=== PATIENT | female | born 1945 | race Caucasian/White ===

== ENCOUNTER 2023-08-26 11:00 | Outpatient (OUT) | payer MEDICARE, SELFPAY ==
--- NOTE | 2023-08-26 13:06 | P.CN_ITS ---
Consult Note: HPI Data of Consult Patient: new to practice Consult date: 08/26/23 Requesting Physician: Trevon Harris MD Primary Care Provider: RONI YEE Consult Narrative Reason for consult: Low back, bilateral leg pain, neck pain Narrative: 77yof who presents for evaluation. Longstanding low back and bilateral lower extremity pain. Lumbar imaging shows multilevel facet and disc degeneration, as well as several levels of stenosis, particularly at L4-5 and L5-S1. Has had injections previously with significant benefit >3 months. Continues in provider directed home exercises and therapy exercises >6 weeks. Also has worsening neck pain, neuropathy into bilateral upper extremities. Has tried tylenol, NSAIDs, tramadol. Denies adverse med side effects. cc:: CC: Trevon Harris MD Review of Systems ROS Status of ROS 10 or more systems reviewed and unremark able except as noted in history and below Exam Narrative Exam Narrative: Psych-alert and oriented x 3. Attentive and appropriate, constitutionally normal, displays normal mood and affect per situation. There are no obvious deficits in memory, reasoning, or intellect.? Skin-no obvious rashes, bruising, erythema noted to the patient's area of pain.? Extremities- extremities are warm with minimal edema and palpable pulses. Lumbar-tenderness to palpation noted in the lumbar spine and paraspinal musculature. Pain is elicited with flexion, extension, and lateral rotation of the lumbar spine. Range of motion is diminished with these motions. Facet loading maneuvers are positive.? Strength-noted to be unremarkable with the exception of decreased strength rated at 4 out of 5 in bilateral quadriceps femoris, anterior tibialis. Sensory-no notable sensory deficits in the bilateral lower extremities to touch or pinprick in all dermatomal distributions with the exception to decreased sens ation to the bilateral L4, 5 dermatomal distribution Coordination remains intact.? Gait remains non-antalgic. Assessment and Plan Assessment and Plan (1) Lumbar stenosis with neurogenic claudication: (2) Lumbar spondylosis: (3) Sacroiliac joint dysfunction of both sides: (4) Cervicalgia: Plan 77yof who presents for evaluation. Failed conservative measures, as noted. Given worsening symptoms, would like her to repeat cervical and lumbar XR. She is in agreement. Discussed that she may need repeat interventions at some point in the future, from TFESI to SIJ injection to lumbar RFA. Medications reviewed, no changes. Follow up after imaging.
== END 2023-08-26 11:01 | disposition home or self-care (01) ==
LOC: PM 11:01
PROVIDERS: PCP Family Medicine; Visit Provider Anesthesiology
DX: M48.062 Spinal stenosis, lumbar region with neurogenic claudication (principal); M47.816 Spondylosis without myelopathy or radiculopathy, lumbar region; M53.3 Sacrococcygeal disorders, not elsewhere classified; M54.2 Cervicalgia
CPT/HCPCS: 72050; 72114; G0463

== ENCOUNTER 2023-08-26 12:47 | Outpatient (OUT) | payer MEDICARE, SELFPAY ==
--- NOTE | 2023-08-26 12:56 | XR_ITS ---
The [address] [address] Patient Name: BINA RIOS MRN: [id number] date: 1945 Sex: F Assigned Patient Location: [facility] Current Patient Location: [facility] Accession/Order Number: [id number] Exam Date: 08/26/2023 13:10 Report Date: 08/27/2023 07:45 At the request of: DARRIAN BRUNNER Procedure: XR cervical spine 5V EXAMINATION: XR cervical spine 5V HISTORY: cervicalgia COMPARISON: No relevant comparison available. FINDINGS: BONES: Reversal of cervical lordosis with no acute fracture or spondylolisthesis. Moderate to severe degenerative spondylosis. Moderate facet osteoarthropathy DISC SPACES: Moderate multilevel disc space narrowing C3-C7 PARASPINOUS: Negative. No paraspinous abnormality is seen. OTHER: Negative. XR/XR cervical spine 5V IMPRESSION: Moderate to severe degenerative changes with reversal of cervical lordosis Electronically authenticated by: CHRISTIAN VIRAMONTES Date: 08/27/2023 07:45
--- NOTE | 2023-08-26 13:02 | XR_ITS ---
The [place] [id number] Patient Name: BINA RIOS MRN: [id number] date: 1945 Sex: F Assigned Patient Location: [facility] Current Patient Location: Accession/Order Number: [id number] Exam Date: 08/26/2023 13:10 Report Date: 08/27/2023 07:43 At the request of: DARRIAN BRUNNER Procedure: XR lumbar spine 6V w bending EXAMINATION: XR lumbar spine 6V w bending HISTORY: lumbar stenosis COMPARISON: No relevant comparison available. FINDINGS: BONES: Rotatory levoscoliosis of the lumbar spine centered at L2. Moderate to severe diffuse degenerative spondylosis and facet osteoarthropathy DISC SPACES: Moderate to severe multilevel disc space narrowing with endplate sclerosis PARASPINOUS: Negative. No paraspinous abnormality is seen. OTHER: Vascular calcifications. No transient spondylolisthesis with flexion or extension XR/XR lumbar spine 6V w bending IMPRESSION: Moderate to severe diffuse degenerative changes with no dynamic instability Electronically authenticated by: CHRISTIAN VIRAMONTES Date: 08/27/2023 07:43
== END 2023-08-26 12:48 | disposition home or self-care (01) ==
LOC: RAD 12:51
PROVIDERS: PCP Family Medicine; Visit Provider Anesthesiology
DX: R53.83 Other fatigue (principal); I10 Essential (primary) hypertension
CPT/HCPCS: 72050; 72114

== ENCOUNTER 2023-09-09 09:43 | Day surgery (SDC) | payer MEDICARE, SELFPAY ==
[2023-09-09 10:22] VITALS: BP 129/72; PULSE 72; RESP 16; TEMP 36.2; O2SAT 99
[2023-09-09 10:53] VITALS: BP 128/62; PULSE 63; RESP 18; O2SAT 98
[2023-09-09 10:54] VITALS: BP 133/58; PULSE 60; RESP 18; O2SAT 96
[2023-09-09] MEDS: 0.9 % SODIUM CHLORIDE 10 ML INJ (10:56)
[2023-09-09] MEDS: LIDOCAINE HCL 2% PF 100 MG/5 ML VIAL 3 ML INJ (10:57)
[2023-09-09] MEDS: BUPIVACAINE HCL 0.25% PF 25 MG/10 ML VIAL INJ (10:57)
[2023-09-09] MEDS: TRIAMCINOLONE ACETONIDE 40 MG/ML VIAL 80 MG INJ (10:57)
[2023-09-09] MEDS: IOHEXOL 240 MG/ML - 10 ML VIAL 24 MG INJ (10:57)
--- NOTE | 2023-09-09 10:57 | W.PM.PROCNOT ---
Date of procedure: 09/09/23 Pre-op diagnosis: Lumbar stenosis with neurogenic claudication Post-op diagnosis: same as pre-op Procedure: Procedure: Bilateral L5-S1 transforaminal epidural steroid injection Medications: Bupivacaine 0.25% 2cc, lidocaine 2% 1cc, kenalog 80mg The patient was seen and examined in the preoperative holding area.? Informed consent was obtained and placed on the chart.? Patient was brought to the medical procedure unit and placed in the prone position where a timeout was completed verifying the correct patient, procedure site, position, and planned special equipment using sterile aseptic technique.? Under direct fluoroscopic visualization a 25-gauge Quincke tipped spinal needle was advanced at level left L5-S1 to the designated neural foramen where contrast dye was injected to show adequate spread.? There was no evidence of vascular or adverse uptake.? Epidural spread was appreciated.? The above-mentioned injectate was then placed in a 1.5 mL aliquot preceded by negative aspiration.? The needle was removed. The same procedure, at the same level, was completed on the opposite side. ? Patient was taken to the postprocedural recovery area and monitored for an appropriate length of time before found suitable for discharge in the accompaniment of a responsible adult. Anesthesia: Local Surgeon: Trevon Harris Pathology: none sent Condition: stable Disposition: no change
== END 2023-09-09 11:25 | disposition home or self-care (01) ==
LOC: SURGOUT 09:43
PROVIDERS: PCP Family Medicine; Visit Provider Anesthesiology
DX: M48.062 Spinal stenosis, lumbar region with neurogenic claudication (principal)
CPT/HCPCS: 64483; Q9966

== ENCOUNTER 2023-09-30 10:23 | Day surgery (SDC) | payer MEDICARE, SELFPAY ==
[2023-09-30 10:36] VITALS: BP 133/66; PULSE 68; TEMP 36.7; O2SAT 100
[2023-09-30] MEDS: BUPIVACAINE HCL 0.25% PF 25 MG/10 ML VIAL 4 ML INJ (11:07)
[2023-09-30] MEDS: IOHEXOL 240 MG/ML - 10 ML VIAL INJ (11:07)
[2023-09-30] MEDS: TRIAMCINOLONE ACETONIDE 40 MG/ML VIAL 80 MG INJ (11:07)
[2023-09-30] MEDS: LIDOCAINE HCL 2% PF 100 MG/5 ML VIAL 3 ML INJ (11:07)
--- NOTE | 2023-09-30 11:08 | W.PM.PROCNOT ---
Date of procedure: 09/30/23 Pre-op diagnosis: Sacroiliitis, bilateral Post-op diagnosis: same as pre-op Procedure: Procedure: Bilateral sacroiliac joint injection Medications: Bupivacaine 0.25% 3cc, kenalog 40mg x2 After informed consent was obtained, the patient was brought to the medical procedure unit and placed in the prone position, when a timeout was completed verifying correct patient, procedure, site, positioning, implant, and/or special equipment.? The skin overlying the area was prepped and draped in standard sterile fashion using alcohol.? A 25-gauge needle was inserted towards the left sacroiliac joint under direct fluoroscopic imaging.? Needle tip was advanced until the joint was encountered.? We instilled a total of 3 mL of solution. The same procedure, with the same steps, was then completed on the right side.? Postoperatively needles were removed.? The patient tolerated the procedure well without complication.? The patient reported reduction in pain symptoms postoperatively. Anesthesia: Local Surgeon: Trevon Harris Pathology: none sent Condition: stable Disposition: no change
[2023-09-30 11:10] VITALS: BP 146/67; BP 159/78; PULSE 58; PULSE 61; O2SAT 97
== END 2023-09-30 11:14 | disposition home or self-care (01) ==
LOC: SURGOUT 10:24
PROVIDERS: PCP Family Medicine; Visit Provider Anesthesiology
DX: M46.1 Sacroiliitis, not elsewhere classified (principal)
CPT/HCPCS: 27096; Q9966

== ENCOUNTER 2023-10-17 09:44 | Outpatient (OUT) | payer MEDICARE, SELFPAY ==
--- NOTE | 2023-10-17 10:23 | PM.CN ---
Consult Note: HPI Data of Consult Patient: known to practice within the last 3 years Consult date: 08/26/23 Requesting Physician: Gabrielle Boswell NP Primary Care Provider: RONI YEE Consult Narrative Reason for consult: Low back, bilateral leg pain, neck pain Narrative: 77yof who presents for evaluation. Longstanding low back and bilateral lower extremity pain. Lumbar imaging shows multilevel facet and disc degeneration, as well as several levels of stenosis, particularly at L4-5 and L5-S1. Has had injections previously with significant benefit >3 months. Continues in provider directed home exercises and therapy exercises >6 weeks. Has tried tylenol, NSAIDs, tramadol. Denies adverse med side effects. Recently underwent bilateral L5/S1 TFESI and bilateral SIJ injection with 70% improvement ongoing. Patient continues to report numbness tingling weakness of BLE. low back pain 1/10 ache increasing to 5/10 with activity. cc:: CC: Gabrielle Boswell NP Review of Systems ROS Status of ROS 10 or more systems reviewed and unremarkable except as noted in history and below Musculoskeletal Reports: back pain PFSH PFSH Medical History (Updated 08/26/23 @ 15:40 by Alma Sanford) Irregular heartbeat ?I49.9 - Cardiac arrhythmia, unspecified (ICD-10) Sleep apnea ?G47.30 - Sleep apnea, unspecified (ICD-10) Hiatal hernia ?K44.9 - Diaphragmatic hernia without obstruction or gangrene (ICD-10) Acid reflux ?K21.9 - Gastro-esophageal reflux disease without esophagitis (ICD-10) Osteoarthritis ?M19.90 - Unspecified osteoarthritis, unspecified site (ICD-10) TMJ (dislocation of temporomandibular joint) ?S03.00XA - Dislocation of jaw, unspecified side, initial encounter (ICD-10) Hypothyroid ?E03.9 - Hypothyroidism, unspecified (ICD-10) Surgical History History of bladder surgery ?Z98.890 - Other specified postprocedural states (ICD-10) History of knee replacement ?Z96.659 - Presence of unspecified artificial knee joint (ICD-10) History of hip replacement ?Z96.649 - Presence of unspecified artificial hip joint (ICD-10) History of cholecystectomy ?Z90.49 - Acquired absence of other specified parts of digestive tract (ICD-10) History of ankle surgery ?Z98.890 - Other specified postprocedural states (ICD-10) H/O: hysterectomy ?Z90.710 - Acquired absence of both cervix and uterus (ICD-10) H/O hernia repair ?Z98.890 - Other specified postprocedural states (ICD-10) ?Z87.19 - Personal history of other diseases of the digestive system (ICD-10) Meds Home Medications and Allergies Home Medications ?Medication ?Instructions ?Recorded ?Confirmed ?Type aspirin 81 mg capsule 81 mg PO DAILY 08/26/23 09/30/23 History calcium-magnesium 300 mg-300 mg 1 tab PO DAILY 08/26/23 09/30/23 History tablet cholecalciferol (vitamin D3) 50 50 mcg PO BID 08/26/23 09/30/23 History mcg (2,000 unit) capsule citalopram 20 mg tablet 20 mg PO DAILY 08/26/23 09/30/23 History cyanocobalamin (vitamin B-12) 1,000 mcg PO DAILY 08/26/23 09/30/23 History 1,000 mcg capsule docusate sodium 100 mg capsule 100 mg PO DAILY 08/26/23 09/30/23 History estradiol 0.01% (0.1 mg/gram) 1 g vaginal QWEEK 08/26/23 09/30/23 History vaginal cream famotidine 20 mg tablet 20 mg PO DAILY 08/26/23 09/30/23 History fexofenadine 180 mg tablet 180 mg PO DAILY 08/26/23 09/30/23 History fluticasone propionate 50 1 spray intranasal DAILY PRN 08/26/23 09/30/23 History mcg/actuation nasal allergy symptoms spray,suspension hydrocortisone 2.5 % topical 1 applic topical DAILY 08/26/23 09/30/23 History ointment levothyroxine 50 mcg capsule 50 mcg PO DAILY 08/26/23 09/30/23 History multivitamin with minerals tab PO 08/26/23 History pantoprazole 20 mg tablet,delayed 20 mg PO DAILY 08/26/23 09/30/23 History release pilocarpine HCl 5 mg tablet 5 mg PO TID 08/26/23 09/30/23 History pravastatin 40 mg tablet 40 mg PO DAILY 08/26/23 09/30/23 History psyllium husk 0.4 gram capsule 0.4 g PO DAILY 08/26/23 09/30/23 History (Metamucil) topiramate 50 mg tablet 50 mg PO DAILY 08/26/23 09/30/23 History Allergies Allergy/AdvReac Type Severity Reaction Status Date / Time latex Allergy Verified 09/30/23 10:41 Sulfa (Sulfonamide Allergy Verified 09/30/23 10:41 Antibiotics) Exam Narrative Exam Narrative: Psych-alert and oriented x 3. Attentive and appropriate, constitutionally normal, displays normal mood and affect per situation. There are no obvious deficits in memory, reasoning, or intellect.? Skin-no obvious rashes, bruising, erythema noted to the patient's area of pain.? Extremities- extremities are warm with minimal edema and palpable pulses. Lumbar-tenderness to palpation noted in the lumbar spine and paraspinal musculature. Pain is elicited with flexion, extension, and lateral rotation of the lumbar spine. Range of motion is diminished with these motions. Facet loading maneuvers are positive.? Strength-noted to be unremarkable with the exception of decreased strength rated at 4 out of 5 in bilateral quadriceps femoris, anterior tibialis. Sensory-no notable sensory deficits in the bilateral lower extremities to touch or pinprick in all dermatomal distributions Coordination remains intact.? Gait remains non-antalgic. Constitutional Documenting provider has reviewed patient's vital signs: yes Common normals: no apparent distress, oriented x3, healthy appearing, alert and well nourished General appearance: cooperative [facility] Common normals: normocephalic, hearing grossly normal bilaterally and moist oral mucous membranes Head and scalp: normocephalic Eye Common normals: PERRL Pupil: PERRL Neck & C-Spine Common normals: full ROM General: normal visual inspection Chest Common normals: inspection of chest normal Respiratory Common normals: normal respiratory effort, no retractions and no use of accessory muscles Neuro Common normals: oriented x3, CN's II-XII intact bilaterally, moves all extremities, no focal motor deficits, no sensory deficits noted and deep tendon reflexes 2+ bilaterally Sensorium/orientation: alert Motor exam: strength 5/5 throughout and no movement abnormalities noted Psych Common normals: mental status grossly normal, thought process normal, cooperative, affect normal, speech normal and activity/motor behavior normal Speech: normal speech Thought process: normal thought process Results Additional Findings Additional findings: If on a controlled substance or opioids, I have checked an [place] report on this patient and there are no aberrancies noted in the prescribing history.??If on a controlled substance or opioid a drug screen was completed and reviewed within the last year, and if there has not been a drug screen completed we ordered one today to monitor higher risk, state monitored pain medication use. As part of providing excellent, safe, comprehensive care, the following was completed at our patient's visit: 1. A medication reconciliation and review to ensure accurate knowledge of current/active medications, including asking our patients to inform us about any [id number] medications or herbal remedies/nutritional supplements/alternative remedies. 2. A review to specifically ensure our patients have had annual screening for screening for depression, screening for tobacco use, and screening for unhealthy alcohol use. For concerning screenings had a discussion with the patient, provided patient education, and recommended follow-up with primary care provider when appropriate. If patient noted with a risk of falling, they received education on strength, gait, and balance training to prevent future risk of falling. Assessment and Plan Assessment and Plan (1) Sacroiliac joint dysfunction of both sides: (2) Lumbar spondylosis: (3) Lumbar stenosis with neurogenic claudication: Plan pain very well controlled at this time continue HEP as tolerated f/u 3 months, sooner if needed
== END 2023-10-17 09:45 | disposition home or self-care (01) ==
LOC: PM 09:44
PROVIDERS: PCP Family Medicine; Visit Provider Nurse Practitioner
DX: M53.3 Sacrococcygeal disorders, not elsewhere classified (principal); M47.816 Spondylosis without myelopathy or radiculopathy, lumbar region; M48.062 Spinal stenosis, lumbar region with neurogenic claudication
CPT/HCPCS: G0463

== ENCOUNTER 2024-01-15 09:38 | Outpatient (OUT) | payer MEDICARE, SELFPAY ==
--- NOTE | 2024-01-15 10:13 | P.CN_ITS ---
Consult Note: HPI Data of Consult Patient: known to practice within the last 3 years Consult date: 08/26/23 Requesting Physician: Gabrielle Boswell NP Primary Care Provider: RONI YEE Consult Narrative Reason for consult: Low back, bilateral leg pain, neck pain Narrative: 77yof who presents for evaluation. Longstanding low back and bilateral lower extremity pain. Lumbar imaging shows multilevel facet and disc degeneration, as well as several levels of stenosis, particularly at L4-5 and L5-S1. Has had injections previously with significant benefit >3 months. Continues in provider directed home exercises and therapy exercises >6 weeks. Has tried tylenol, NSAIDs, tramadol. Denies adverse med side effects. Previously underwent bilateral L5/S1 TFESI and bilateral SIJ injection with >50% improvement for 3 months. Patient continues to report numbness tingling weakness of BLE. low back pain 8/10 ache increasing to 10/10 with standing, walking, twisting, pushing, pulling, stairs, and all activity. Noticing increase in pain, numbness, tingling of right leg cc:: CC: Gabrielle Boswell NP Review of Systems ROS Status of ROS 10 or more systems reviewed and unremark able except as noted in history and below Musculoskeletal Reports: back pain and joint pain [facility] Medical History (Updated 08/26/23 @ 15:40 by Alma Sanford) Irregular heartbeat ?I49.9 - Cardiac arrhythmia, unspecified (ICD-10) Sleep apnea ?G47.30 - Sleep apnea, unspecified (ICD-10) Hiatal hernia ?K44.9 - Diaphragmatic hernia without obstruction or gangrene (ICD-10) Acid reflux ?K21.9 - Gastro-esophageal reflux disease without esophagitis (ICD-10) Osteoarthritis ?M19.90 - Unspecified osteoarthritis, unspecified site (ICD-10) TMJ (dislocation of temporomandibular joint) ?S03.00XA - Dislocation of jaw, unspecified side, initial encounter (ICD-10) Hypothyroid ?E03.9 - Hypothyroidism, unspecified (ICD-10) Surgical History History of bladder surgery ?Z98.890 - Other specified postprocedural states (ICD-10) History of knee replacement ?Z96.659 - Presence of unspecified artificial knee joint (ICD-10) History of hip replacement ?Z96.649 - Presence of unspecified artificial hip joint (ICD-10) History of cholecystectomy ?Z90.49 - Acquired absence of other specified parts of digestive tract (ICD- 10) History of ankle surgery ?Z98.890 - Other specified postprocedural states (ICD-10) H/O: hysterectomy ?Z90.710 - Acquired absence of both cervix and uterus (ICD-10) H/O hernia repair ?Z98.890 - Other specified postprocedural states (ICD-10) ?Z87.19 - Personal history of other diseases of the digestive system (ICD-10) Meds Home Medications and Allergies Home Medications ?Medication ?Instructions ?Recorded ?Confirmed ?Type aspirin 81 mg capsule 81 mg PO DAILY 08/26/23 09/30/23 History calcium-magnesium 300 mg-300 mg 1 tab PO DAILY 08/26/23 09/30/23 History tablet cholecalciferol (vitamin D3) 50 50 mcg PO BID 08/26/23 09/30/23 History mcg (2,000 unit) capsule citalopram 20 mg tablet 20 mg PO DAILY 08/26/23 09/30/23 History cyanocobalamin (vitamin B-12) 1,000 mcg PO DAILY 08/26/23 09/30/23 History 1,000 mcg capsule docusate sodium 100 mg capsule 100 mg PO DAILY 08/26/23 09/30/23 History estradiol 0.01% (0.1 mg/gram) 1 g vaginal QWEEK 08/26/23 09/30/23 History vaginal cream famotidine 20 mg tablet 20 mg PO DAILY 08/26/23 09/30/23 History fexofenadine 180 mg tablet 180 mg PO DAILY 08/26/23 09/30/23 History fluticasone propionate 50 1 spray intranasal DAILY PRN 08/26/23 09/30/23 History mcg/actuation nasal allergy symptoms spray,suspension hydrocortisone 2.5 % topical 1 applic topical DAILY 08/26/23 09/30/23 History ointment levothyroxine 50 mcg capsule 50 mcg PO DAILY 08/26/23 09/30/23 History multivitamin with minerals tab PO 08/26/23 History pantoprazole 20 mg tablet,delayed 20 mg PO DAILY 08/26/23 09/30/23 History release pilocarpine HCl 5 mg tablet 5 mg PO TID 08/26/23 09/30/23 History pravastatin 40 mg tablet 40 mg PO DAILY 08/26/23 09/30/23 History psyllium husk 0.4 gram capsule 0.4 g PO DAILY 08/26/23 09/30/23 History (Metamucil) topiramate 50 mg tablet 50 mg PO DAILY 08/26/23 09/30/23 History Allergies Allergy/AdvReac Type Severity Reaction Status Date / Time latex Allergy Verified 09/30/23 10:41 Sulfa (Sulfonamide Allergy Verified 09/30/23 10:41 Antibiotics) Exam Narrative Exam Narrative: Psych-alert and oriented x 3. Attentive and appropriate, constitutionally normal, displays normal mood and affect per situation. There are no obvious deficits in memory, reasoning, or intellect.? Skin-no obvious rashes, bruising, erythema noted to the patient's area of pain.? Extremities- extremities are warm with minimal edema and palpable pulses. Lumbar-tenderness to palpation noted in the lumbar spine and paraspinal musculature. Pain is elicited with flexion, extension, and lateral rotation of the lumbar spine. Range of motion is diminished with these motions. Facet loading maneuvers are positive. Sacroiliac joint, right positive thomas(patricks), gaenslens, thigh thrust, compression test, negative on left? Strength-noted to be unremarkable with the exception of decreased strength rated at 4 out of 5 in bilateral quadriceps femoris, anterior tibialis. Sensory-no notable sensory deficits in the bilateral lower extremities to touch or pinprick in all dermatomal distributions with the exception to decreased sensation to the bilateral L4, 5 dermatomal distribution Coordination remains intact.? Gait remains non-antalgic. Constitutional Documenting provider has reviewed patient's vital signs: yes Common normals: no apparent distress, oriented x3, healthy appearing, alert and well nourished General appearance: cooperative [facility] Common normals: normocephalic, hearing grossly normal bilaterally and moist oral mucous membranes Head and scalp: normocephalic Eye Common normals: PERRL Pupil: PERRL Neck & C-Spine Common normals: full ROM General: normal visual inspection Chest Common normals: inspection of chest normal Respiratory Common normals: normal respiratory effort, no retractions and no use of accessory muscles Neuro Common normals: oriented x3, CN's II-XII intact bilaterally, moves all extremities, no focal motor deficits, no sensory deficits noted and deep tendon reflexes 2+ bilaterally Sensorium/orientation: alert Motor exam: strength 5/5 throughout and no movement abnormalities noted Psych Common normals: mental status grossly normal, thought process normal, cooperative, affect normal, speech normal and activity/motor behavior normal Speech: normal speech Thought process: normal thought process Results Additional Findings Additional findings: If on a controlled substance or opioids, I have checked an [place] report on this patient and there are no aberrancies noted in the prescribing history.??If on a controlled substance or opioid a drug screen was completed and reviewed within the last year, and if there has not been a drug screen completed we ordered one today to monitor higher risk, state monitored pain medication use. As part of providing excellent, safe, comprehensive care, the following was completed at our patient's visit: 1. A medication reconciliation and review to ensure accurate knowledge of current/active medications, including asking our patients to inform us about any [id number] medications or herbal remedies/nutritional suppl ements/alternative remedies. 2. A review to specifically ensure our patients have had annual screening for screening for depression, screening for tobacco use, and screening for unhealthy alcohol use. For concerning screenings had a discussion with the patient, provided patient education, and recommended follow-up with primary care provider when appropriate. If patient noted with a risk of falling, they received education on strength, gait, and balance training to prevent future risk of falling. Assessment and Plan Assessment and Plan (1) Lumbar stenosis with neurogenic claudication: (2) Lumbar spondylosis: (3) Sacroiliac joint dysfunction of both sides: Plan repeat bilateral L5-S1 TFESI under fluoroscopy, previous injection provided >50% improvement for 3 months right SIJ injection for sacroiliac joint dysfunction, negative exam on left, under fluoroscopy risks vs benefits reviewed continue current medications f.u after procedures compelted
== END 2024-01-15 09:39 | disposition home or self-care (01) ==
LOC: PM 09:39
PROVIDERS: PCP Family Medicine; Visit Provider Nurse Practitioner
DX: M48.062 Spinal stenosis, lumbar region with neurogenic claudication (principal); M47.816 Spondylosis without myelopathy or radiculopathy, lumbar region; M53.3 Sacrococcygeal disorders, not elsewhere classified
CPT/HCPCS: G0463

== ENCOUNTER 2024-02-03 06:47 | Day surgery (SDC) | payer MEDICARE, SELFPAY ==
--- OUTSIDE RECORDS SUMMARY | 2024-02-03 06:52 | XMS_ITS | CCD ---
Author Organization [facility] Care Team Providers Care Survey Methodologist Name Role Phone JAMISON OWENS Unavailable Unavailable ANDREWS FISH Unavailable Unavailable LANIE PRINCE Unavailable Unavailable ANDREWS FISH Unavailable Unavailable Roni Dahl Primary Care Provider [phone] Roni Dahl Primary Care Provider [phone] Roni Dahl Primary Care Provider [phone] Roni Dahl MD Primary Care Provider Roni Dahl MD Primary Care Provider Roni Dahl MD Primary Care Provider RONI DAHL Primary Care Physician Roni Dahl MD Primary Care Provider MD Roni Dahl Primary Care Provider DENISHA Sanchez Attending Provider MD Daniel Hylton Attending Provider MD Roni Dahl Primary Care Provider MD Yanelis Garcia Attending Provider [phone] Yanelis Garcia Unavailable MD Roni Dahl Primary Care Provider MD Daniel Hylton Attending Provider MD Yanelis Garcia Attending Provider MD Roni Dahl Primary Care Provider Roni Dahl MD Primary Care Provider MD Roni Dahl Primary Care Provider MD Yanelis Garcia Attending Provider MD Roni Dahl Primary Care Provider MD Yanelis Garcia Attending Provider MD Daniel Hylton Attending Provider Tara Patel Unavailable Roni Dahl MD L Primary Care Provider MD Roni Dahl Primary Care Provider MD Yanelis Garcia Attending Provider DILIP Vasquez Emergency Provider [phone] MD Mukul Wilson Attending Provider Mukul Wilson Unavailable VERHOJOLENE, RONI L Primary Care Unavailable YANELIS GUZMAN Referring Unavailable VERHOFF, RONI L Primary Care Unavailable YANELIS GUZMAN Attending Unavailable YANELIS GUZMAN Referring Unavailable VERHOFF, RONI L Primary Care Unavailable VERHOFF, RONI L Primary Care Unavailable TANISHA, EMA YOSELIN Referring Unavailable TANISHA, EMA YOSELIN Referring Unavailable VERHOFF, RONI L Primary Care Unavailable TANISHA, EMA YOSELIN Referring Unavailable VERHOFF, RONI L Primary Care Unavailable TANISHA, EMA YOSELIN Referring Unavailable VERHOFF, RONI L Primary Care Unavailable LANIE PRINCE Referring Unavailable XU MARTINEZ Attending Unavailable XU MARTINEZ Attending Unavailable Roni Dahl MD L. Primary Care Provider MARY SUE Attending Unavail able VERHOFF, RONI L. Primary Care Unavailable GRAYSON HUTCHINSON JR. Admitting Unavail able ANDRE ROWE Referring Unavailable VERHOFF, RONI L. Primary Care Unavailable GRAYSON HUTCHINSON JR. Attending Unavail able MD Roni Dahl Primary Care Provider DILIP Vasquez Emergency Provider MD Mukul Wilson Attending Provider MD Yanelis Garcia Attending Provider [phone] MD Obie Hylton Attending Provider MD Roni Dahl Primary Care Provider [phone] DENISHA Sanchez Attending Provider Nabila STEINER, Roni Urvashi Primary Care Unavailab Jan STEINER, Trevon Ko Attending Unavailable Nabila STEINER, Roni Urvashi Primary Care Unavailab dixon Harris MD, Trevon Ko Attending Unavailable Nabila STEINER, Roni Urvashi Primary Care Unavailab Jan STEINER, Trevon Ko Attending Unavailable Nabila STEINER, Roni Urvashi Primary Care Unavailab dixon TAFOYA, Ema Adrian Attending Unav ailable VERHOFF, RONI L Primary Care Unavailable ANGY, XU K Referring Unavailable VERHOFF, RONI L Primary Care Unavailable CHRISTINE XU K Referring Unavailable VERHOFF, RONI L Primary Care Unavailable YANELIS GUZMAN Referring Unavailable YANELIS GUZMAN Attending Unavailable VERHOFF, RONI L Primary Care Unavailable REAGAN GIVENS Referring Unavailable JESSICA FARRAR Attending Unavailable VERHOFF, RONI L Primary Care Unavailable SALOMON CORREA Attending Unavailable VERHOFF, RONI L Primary Care Unavailable VERHOFF, RONI L Primary Care Unavailable ELGAFY, XU K Referring Unavailable VERHOFF, RONI L Primary Care Unavailable ANGY, XU K Referring Unavailable VERHOFF, RONI L Primary Care Unavailable ELGAFY, XU K Referring Unavailable VERHOFF, RONI L Primary Care Unavailable VERHOFF, RONI L Referring Unavailable VERHOFF, RONI L Primary Care Unavailable VERHOFF, RONI L Referring Unavailable VERHOFF, RONI L Primary Care Unavailable VERHOFF, RONI L Referring Unavailable VERHOFF, RONI L Primary Care Unavailable JOHN PAUL MAYFIELD Referring Unavailable VERHOFF, RONI L Primary Care Unavailable REAGAN GIVENS Referring Unavailable REAGAN GIVENS Attending Unavailable VERHOFF, RONI L Primary Care Unavailable ELGAFY, XU K Referring Unavailable VERHOFF, RONI L Primary Care Unavailable ELGAFY, XU K Referring Unavailable MONSTER MEI Attending Unavailable VERHOFF, RONI L Primary Care Unavailable VERHOFF, RONI L Primary Care Unavailable ELGAFY, XU K Referring Unavailable VERHOFF, RONI L Primary Care Unavailable ELGAFY, XU K Referring Unavailable VERHOFF, RONI L Primary Care Unavailable ELGAFY, XU K Referring Unavailable VERHOFF, RONI L Primary Care Unavailable ELGAFY, XU K Referring Unavailable VERHOFF, RONI L Primary Care Unavailable ELGAFY, XU K Referring Unavailable VERHOFF, RONI L Primary Care Unavailable VIGESAA, REAGAN S Referring Unavailable VERHOFF, RONI L Primary Care Unavailable VIGESAA, REAGAN S Referring Unavailable VERHOFF, RONI L Primary Care Unavailable VIGESAA, REAGAN S Referring Unavailable VERHOFF, RONI L Primary Care Unavailable ELGAFY, XU K Referring Unavailable VERHOFF, RONI L Primary Care Unavailable YANELIS GUZMAN Referring Unavailable YANELIS GUZMAN Attending Unavailable VERHOFF, RONI L Primary Care Unavailable VERHOFF, RONI L Referring Unavailable VERHOFF, RONI L Attending Unavailable LEXY TAPIA Attending Unavailable VERHOFF, RONI L Primary Care Unavailable VERHOFF, RONI L Primary Care Unavailable ELGAFY, XU K Referring Unavailable VERHOFF, RONI L Primary Care Unavailable JOHN PAUL MAYFIELD Referring Unavailable MD Cristine Dahlcy Primary Care Provider MD Obie Hylton Attending Provider Yanelis Garica Admitting Unavailable Yanelis Garcia Attending Unavailable Verhoff, Roni Primary Care Unavailable Jesus Vasquez Admitting Unavailable Jesus Vasquez Attending Unavailable Verhoff, Roni Primary Care Unavailable Obie Hylton Admitting Unavailable Obie Hylton Attending Unavailable Verhoff, Roni Primary Care Unavailable Verhoff, Roni Primary Care Unavailable Obvalerieeyer Nuvia L Admitting Unavailable Obkeniaer, Nuvia L Attending Unavailable Yanelis Garcia Admitting Unavailable Yanelis Garcia Attending Unavailable Verhoff, Roni Primary Care Unavailable Mukul Wilson Attending Unavailable Verhoff, Roni Primary Care Unavailable Mukul Wilson Admitting Unavailable Obie Hylton Admitting Unavailable Obie Hylton Attending Unavailable Roni Dahl Primary Care Unavailable Davion Olivares Referring Unavaila ble Sarmini, Davion Zarate Attending Unavaila ble Sarmini, Davino Zarate Admitting Unavaila ble Sarmini, Davion Zarate Attending Unavaila ble Allergies Allergy Classification Reported Allergen(s) Allergy Type Date of Onset Reaction(s) Facility hydroCHLOROthiazide (6 sources) hydroCHLOROthiazide Drug Allergy 2019 Rash [facility] Latex (6 sources) Latex Substance Allergy 2010 Itching [facility] NSAIDs (6 sources) Ibuprofen Drug Allergy 2018 Rash [facility] Opioid Agonists (6 sources) Morphine Drug Allergy 2010 Other (See Comments[facility] Serotonin Reuptake Inhibitors (SSRIs) (6 sources) Escitalopram Drug Allergy 2014 [facility]ching, Rash [facility] Sulfonamides (antibiotic) (12 sources) Sulfonamides (Antibiotic) Drug Allergy 2007 Other (See Comments), Itching [facility] Sulfur (6 sources) Sulfur Drug Allergy 2019 Itching [facility] Triamterene (6 sources) Triamterene Drug Allergy 2018 Rash [facility] WHEAT DEXTRIN (6 sources) WHEAT DEXTRIN Drug Allergy 2010 [facility] (1 source) escitalopram; Translations: [ESCITALOPRAM OXALATE] Drug Allergy 2007 [facility] Repository (20 sources) morphine; Translations: [MORPHINE] Drug Allergy 2007 Other (See Comments), Vomiting (disorder), GI Intolerance [facility] Repository (5 sources) Sulfonamides (Antibiotic); Translations: [SULFA (SULFONAMIDE ANTIBIOTICS)] Propensity to adverse reactions to drug (disorder) 2007 Hives [facility] Repository (1 source) GLUTEN FLOUR; Translations: [GLUTEN FLOUR] Propensity to adverse reactions to food (disorder) 2017 [facility] (20 sources) Escitalopram; Translations: [ESCITALOPRAM] Drug Allergy 2007 Itching, Rash [facility] [place], [place] (20 sources) Ibuprofen; Translations: [ibuprofen] Drug Allergy 2018 Rash [place], [place] (20 sources) Latex; Translations: [LATEX] Propensity to adverse reactions to drug 2010 Itching, Eruption of skin (disorder), Rash, Other (See Comments) [place] (20 sources) Sulfonamides (Antibiotic) Propensity to adverse reactions to drug 2007 Other (See Comments) [place] (20 sources) Triamterene; Translations: [triamterene] Drug Allergy 2018 Rash, Eruption of skin (disorder) [place] (20 sources) WHEAT DEXTRIN; Translations: [Wheat] Drug Allergy 2010 Itching [place] (20 sources) hydroCHLOROthiazide; Translations: [HYDROCHLOROTHIAZIDE] Drug Allergy 2018 Rash [place] (20 sources) Sulfacetamide Drug Allergy 2018 Itching [place] (20 sources) Sulfur Drug Allergy 2018 Itching [place] (20 sources) Food Propensity to adverse reactions to drug 2021 [facility] (10 sources) Gluten; Translations: [Glutens] Food allergy Upset stomach (finding) [facility] (9 sources) Sulfamethoxazole; Translations: [sulfamethoxazole] Drug Allergy Eruption of skin (disorder) [facility] (9 sources) Sulfamethoxazole / Trimethoprim; Translations: [sulfamethoxazole-tri methoprim] Drug Allergy Rash [facility] (16 sources) Sulfacetamide / Sulfur Drug Allergy Unknown [facility] Other (12 sources) Sulfonamides (Antibiotic) Propensity to adverse reactions to drug 2007 Other (See Comments) [facility] (7 sources) Naproxen; Translations: [naproxen] Drug Allergy Unknown [facility] (11 sources) Wheat gluten extract Drug Allergy 2022 [facility] (2 sources) Morphine Drug Allergy Unknown [employer] Other (1 source) Sulfamethoxazole / Trimethoprim; Translations: [SULFAMETHOXAZOLE-TRI METHOPRIM] Drug Allergy 2022 [place] Rep[facility] (1 source) Wheat bran; Translations: [WHEAT BRAN] Propensity to adverse reactions to drug (disorder) 2010 [place] Rep[facility] (1 source) GLUTEN PROTEIN; Translations: [GLUTEN PROTEIN] Propensity to adverse reactions to drug (disorder) 2017 [place] Rep[facility] (1 source) Sulfonamides (Antibiotic); Translations: [sulfa drugs] Propensity to adverse reactions to drug (disorder) [facility] Repository (1 source) Escitalopram Drug Allergy 2022 [facility] Repository (1 source) hydroCHLOROthiazide Drug Allergy 2022 [facility] Repository (1 source) Ibuprofen Drug Allergy 2022 [facility] Repository (1 source) Latex Drug allergy (disorder) 2022 [facility] Repository (1 source) Sulfacetamide Drug Allergy 2022 [facility] Repository (1 source) Sulfur Drug Allergy 2022 [facility] Repository (1 source) Triamterene Drug Allergy 2022 [facility] Repository Medications Current Medications Medication Drug Class(es) Dates Sig (Normalized) Sig (Original) acetaminophen 300 mg / codeine phosphate 30 mg oral tablet (2 sources) Opioid Agonist Start: 03-14-2023 take 1 tablet by mouth every twelve hours Acetaminophen-Cod eine 300-30 MG 1 tablet as needed Orally BID for 30 days Mar, Active Acetaminophen / HYDROcodone (1 source) Opioid Agonist Start: 02-08-2023 hydrocodone-aceta minophen (NORCO) tablet 5-325 mg (STARTER PACK) acetaminophen 325 mg / oxyCODONE hydrochloride 5 mg oral tablet (14 sources) Opioid Agonist Start: 02-14-2023 take 1 tablet by mouth twice daily oxyCODONE-acetami nophen (PERCOCET) 5-325 MG per tablet take 1 tablet by mouth UP TO twice a day if needed for 7 days 0 02/15/2023 Active Start: 07-28-2021 Percocet 325 m g-5 mg Tab See Instructions, as needed for pain, 40 tab(s), Refill(s) 0, 1-2 orally every 4-6hrs as needed for pain Dx: M75.101 Duration: 7 days, [id number], 162, cm, 07/17/21 12:14:00 EST, Height/Length Dosing, 105.2, kg, 07/17/21 12:14:00 EST, Weig... Start Date: 07/28/21 Status: Ordered Start: 07-28-2021 Percocet 325 m g-5 mg Tab See Instructions, as needed for pain, 40 tab(s), Refill(s) 0, 1-2 orally every 4-6hrs as needed for pain Dx: M75.101 Duration: 7 days, [id number], 162, cm, 07/17/21 12:14:00 EST, Height/Length Dosing, 105.2, kg, 07/17/21 12:14:00 EST, Weig... Start Date: 07/28/21 Status: Ordered apixaban 5 mg oral tablet (2 sources) Factor Xa Inhibitor Start: 10-23-2023 take 1 tablet by mouth twice daily apixaban (ELIQUIS) 5 MG TABS tablet Take 1 tablet by mouth 2 times daily 60 tablet 1 10/23/2023 Active ascorbic acid 60 mg / beta carotene 5000 unt / copper sulfate 40 mg / dl-alpha tocopheryl acetate 30 unt / sodium selenite 0.04 mg / zinc oxide 40 mg oral tablet (6 sources) Vitamin C take 1 tablet by mouth once daily Multiple Vitamins-Minerals (THERAPEUTIC MULTIVITAMIN-MINE RALS) tablet Take 1 tablet by mouth daily 0 Active Ascorbic Acid / POLYETHYLENE GLYCOL 3350 / Potassium Chloride / Sodium Ascorbate / Sodium Chloride / sodium sulfate (20 sources) Osmotic Laxative, Vitamin C Start: 01-18-2021 PLENVU 140 g SOLR Aspir-81 (16 sources) Aspir-81 Active aspirin 81 mg delayed release oral tablet (20 sources) Platelet Aggregation Inhibitor, Nonsteroidal Anti-inflammatory Drug Start: 01-10-2018 take 1 tablet by mouth once daily Aspirin (Aspir-81) 81 mg Tablet,Delayed Release (Dr/Ec) Active 81 MG PO Daily January 10, 2018 12:00am Start: 03-16-2014 take 81 mg by mouth once daily aspirin 81 mg, Oral, Daily, Refills(s) 0, Prophylaxis Start Date: 03/16/14 Status: Ordered atropine sulfate 0.025 mg / diphenoxylate hydrochloride 2.5 mg oral tablet (1 source) Anticholinergic, Cholinergic Muscarinic Antagonist, Antidiarrheal Start: 11-18-2020 End: 11-21-2020 take 1 tablet by mouth four times daily as needed for diarrhea diphenoxylate-atropine (LOMOTIL) 2.5-0.025 MG per tablet Indications: Nausea vomiting and diarrhea Take 1 tablet by mouth 4 times daily as needed for Diarrhea for up to 3 days. 10 tablet 0 11/18/2020 11/21/2020 Active azelastine hydrochloride 0.137 mg/actuat metered dose nasal spray (2 sources) Histamine-1 Receptor Antagonist Start: 06-18-2017 take 1 spray(s) nasal route twice daily azelastine (ASTELIN) 0.1 % nasal spray 1 spray by Nasal route 2 times daily Use in each nostril as directed 1 Bottle 3 06/18/2017 Active azelastine / fluticasone (14 sources) Corticosteroid, Histamine-1 Receptor Antagonist Start: 01-10-2018 Azelastine-Fluticasone Active 1 SPRAY INTRANASAL Twice daily January 10, 2018 12:00am Start: 01-10-2018 Azelastine-Flu ticasone Active 1 SPRAY INTRANASAL Twice daily January 09, 2018 11:00pm Start: 01-10-2018 Azelastine-Flu ticasone Active 1 SPRAY INTRANASAL Twice daily January 10, 2018 12:00am Tyhyxzdsiu-Hoytpxvhrsk-XwTy (16 sources) Azelastine-Fluti casone-NaCl Active azithromycin 250 mg oral tab let (2 sources) Macrolide Antimicrobial Star t: 07-20 End: 11-17 azithromycin (ZITHROMAX Z-PA K) 250 MG tablet Take 2 tablets (500 mg) on Day 1, and then take 1 tablet (250 mg) on days 2 through 5. 1 packet 0 07/01/2023 07/05/2023 Active Start: 03-24-2020 End: 03-31-2020 azithromycin (ZITHROMAX) 250 MG tablet Indications: Acute recurrent frontal sinusitis , Vertigo Take 2 tabs (500 mg) on Day 1, and take 1 tab (250 mg) on days 2 through 5. 1 packet 0 03/24/2020 03/31/2020 Discontinued (Therapy completed) Ca Carb-Ca Gluc-Mg Ox-Mg Gluco (Calcium Magnesium) 500 mg calcium -250 mg Tablet (13 sources) Start: 05-20-2019 take 1 tablet by mouth twice daily Ca Carb-Ca Gluc-Mg Ox-Mg Gluco (Calcium Magnesium) 500 mg calcium -250 mg Tablet Active 1 TAB PO Twice daily May 20, 2019 12:00am Start: 05-20-2019 take 1 tablet by karthik th twice daily Ca Carb-Ca Gluc-Mg Ox-Mg Gluco (Calcium Magnesium) 500 mg calcium -250 mg Tablet Active 1 TAB PO Twice daily May 20, 2019 1:00am Calcium & Magnesium Carbonat es (16 sources) Calcium & Magnes ium Carbonates Active CALCIUM & MAGNESIUM CARBONAT ES PO (20 sources) CALCIUM & MAGNES IUM CARBONATES PO Calcium & Magnesium Carbonates Active 0 Active take 1 tablet by mouth twice sarmad ly CALCIUM & MAGNESIUM CARBONATES PO Take 1 tablet by mouth 2 times daily 0 Active Calcium Carb,Gluc-Mag Gluc,Ox (Calcium Magnesium) 500 mg calcium -250 mg Tablet (1 source) Start: 05-20-2019 take 1 tablet by mouth twice daily Calcium Carb,Gluc-Mag Gluc,Ox (Calcium Magnesium) 500 mg calcium -250 mg Tablet Active 1 TAB PO Twice daily May 20, 2019 1:00am calcium carbonate 1500 mg oral tablet (3 sources) take 1 tablet by mouth twice daily at mealtime calcium carbonate (OS-ASHLY) 600 mg calcium (1,500 mg) tablet Take 1 (one) tablet (600 mg total) by mouth 2 (two) times a day with meals . 0 Active calcium carbonate 1250 mg / cholecalciferol 200 unt oral tablet (2 sources) Vitamin D Start: 12-29-2017 Calcium Carbonate-Vitamin D3 (Calcium 500 + D) 500 mg(1,250mg) -200 unit Tablet Active 1 TAB PO Twice daily December 29, 2017 12:00am Calcium Carbonate / magnesium carbonate (8 sources) Start: 03-24-2019 take 1 tablet by mouth twice daily calcium carbonate-magnesium carbonate tab(s), Oral, BID, Refill(s) 0, Prophylaxis Start Date: 03/24/19 Status: Ordered Calcium Carbonate-Vitamin D3 (Calcium 500 + D) 500 mg(1,250mg) -200 unit Tablet (12 sources) Start: 12-29-2017 Calcium Carbonate-Vitamin D3 (Calcium 500 + D) 500 mg(1,250mg) -200 unit Tablet Active 1 TAB PO Twice daily December 29, 2017 12:00am Start: 12-29-2017 Calcium Carbon ate-Vitamin D3 (Calcium 500 + D) 500 mg(1,250mg) -200 unit Tablet Active 1 TAB PO Twice daily December 28, 2017 11:00pm cholecalciferol 0.05 mg oral capsule (20 sources) Vitamin D Start: 05-29-2022 take 1 capsule by mouth once daily Cholecalciferol (Vitamin D3) (Vitamin D3) 50 mcg (2,000 unit) Capsule Active 50 MCG PO Daily May 29, 2022 1:00am take 1 capsule by mouth twice da teto Cholecalciferol (VITAMIN D) 2000 units CAPS capsule Take 2,000 Units by mouth 2 times daily 0 Active take 1 capsule by mouth once sarmad ly cholecalciferol, vitamin D3, 25 mcg (1,000 unit) capsule Take 1 (one) capsule (1,000 Units total) by mouth daily . 0 Active Cholecalciferol 2000 UNIT (16 sources) Cholecalciferol 2000 UNIT Orally Active citalopram 20 mg oral tablet (20 sources) Serotonin Reuptake Inhibitor Start: 04-11-20 15 take 20 mg by mouth at bedtime Citalopram Active 20 MG PO Bedtime December 29, 2017 12:00am clotrimazole 10 mg oral lozenge (16 sources) Azole Antifungal Start: 10-23-19 24 End: 11-02-19 24 take 1 tablet by mouth four times daily as needed clotrimazole (MYCELEX) 10 MG darling Take 1 tablet by mouth 4 times daily as needed (thrush) 40 tablet 0 10/23/2023 11/02/2023 Active Start: 02-09-2022 clotrimazole ( LOTRIMIN) 1 % cream Indications: Candidal intertrigo Apply topically 2 times daily to affected areas for 14 to 21 days, no longer than 4 weeks. 60 g 0 02/09/2022 Active Start: 10-14-2021 clotrimazole ( LOTRIMIN) 2 % CREA vaginal cream 1 applicator per vaginal at bedtime x 5 days 5 each 0 10/14/2021 Active diclofenac sodium 50 mg delayed release oral tablet (3 sources) Nonsteroidal Anti-inflammatory Drug Start: 08-06-2023 take 1 tablet by mouth once daily diclofenac (VOLTAREN) 50 MG EC tablet Take 1 tablet by mouth daily 90 tablet 1 08/06/2023 Active Start: 05-07-2023 take 1 tablet by [facility] twice daily diclofenac (VOLTAREN) 50 MG EC tablet Take 1 tablet by mouth 2 times daily 60 tablet 5 05/07/2023 Active dilTIAZem hydrochloride 30 mg oral tablet (20 sources) Calcium Channel Natty Start: 06-27-2022 take 30 mg by mouth once daily Diltiazem Hcl Active 30 MG PO Daily June 27, 2022 1:00am Start: 07-29-2017 End: 05-29-2022 Diltiazem Hcl Discontinued 3 0 MG PO As Directed January 10, 2018 12:00am May 29, 2022 9:36am docusate sodium 100 mg oral tablet (20 sources) Start: 03-01-2021 take 100 mg by mouth once daily Colace 100 mg, Oral, Daily, Refills(s) 0, Constipation Start Date: 03/01/21 Status: Ordered Start: 05-20-2019 take 1 capsule by [facility] once daily Docusate Sodium (Colace) 100 mg Capsule Active 100 MG PO Daily May 20, 2019 1:00am Docusate Sodium Active doxycycline hyclate 100 mg oral tablet (2 sources) Tetracycline-class Drug Start: 11-17-2022 End: 11-25-2022 take 1 tablet by mouth twice daily doxycycline hyclate (VIBRA-TABS) 100 MG tablet Take 1 tablet by mouth 2 times daily for 10 days 20 tablet 0 11/17/2022 11/25/2022 Discontinued (Alternate therapy) Start: 06-29-2020 End: 07-06-2020 take 1 tablet by mouth twice daily doxycycline hyclate (VIBRA-TABS) 100 MG tablet Indications: Acute pansinusitis, recurrence not specified Take 1 tablet by mouth 2 times daily for 7 days 14 tablet 0 06/29/2020 07/06/2020 Active esomeprazole 40 mg delayed release oral capsule (20 sources) Proton Pump Inhibitor Start: 06-27-2022 take 1 capsule by mouth once daily Esomeprazole Magnesium (Nexium) 40 mg Capsule,Delayed Release(Dr/Ec) Active 40 MG PO Daily June 27, 2022 1:00am Start: 12-29-2017 End: 05-29-2022 take 40 mg by mouth once daily in the morning Esomeprazole Magnesium Discontinued 40 MG PO Every morning December 29, 2017 12:00am May 29, 2022 9:36am estradiol 0.1 mg/ml vaginal cream (10 sources) Estrogen Start: 12-11-2022 estradiol (EST RACE VAGINAL) 0.1 MG/GM vaginal cream Indications: Frequent UTI , Vaginal atrophy , Mixed incontinence urge and stress Place [address] a pea-sized amount vaginally daily x 2 wks, then use 3 times per wk thereafter 1 each 3 12/11/2022 Active Start: 12-11-2022 estradioL (EST RACE) 0.01 % (0.1 mg/gram) vaginal cream Insert 1 (one) g into the vagina daily . 0 12/11/2022 Active ESTRADIOL VA Sonia ce vaginally 0 Active famotidine 40 mg oral tablet (20 sources) Histamine-2 Receptor Antagonist Start: 09-16-2023 take 1 tablet by mouth once daily at bedtime famotidine 40 mg Tab 40 mg = 1 tab(s), Oral, Once a day (at bedtime), # 90 tab(s), Refills(s) 6, [id number], 162, cm, 09/16/23 10:47:00 EDT, Height/Length Dosing, 97.8, kg, 09/16/23 10:47:00 EDT, Weight Dosing Start Date: 09/16/23 Status: Ordered Start: 04-03-2021 End: 07-05-2023 take 20 mg by mouth once daily Famotidine Active 20 MG PO Daily July 03, 2022 1:00am fexofenadine hydrochloride 180 mg oral tablet (20 sources) Histamine-1 Receptor Antagonist Start: 01-10-2018 take 1 tablet by mouth once daily Fexofenadine ([facility]) 180 mg Tablet Active 180 MG PO Daily January 10, 2018 12:00am fluconazole 150 mg oral tablet (17 sources) Azole Antifungal Start: 06-18-2022 fluconazole (DIFLUCAN) 150 MG tablet TAKE ONE TABLET BY MOUTH IN A SINGLE DOSE 1 tablet 1 06/18/2022 Active Start: 10-14-2021 fluconazole (D IFLUCAN) 100 MG tablet 1 tab PO x1 now, and 1 tab PO when antibiotics completed 2 tablet 0 10/14/2021 Active Start: 06-28-2021 fluconazole (D IFLUCAN) 150 MG tablet Indications: Antibiotic-induced yeast infection Take one by mouth today and one after completion of cephalexin. 2 tablet 0 06/28/2021 Active Start: 07-28-2020 End: 11-18-2020 fluconazole (DIFLUCAN) 150 M G tablet Take 1 dose po and repeat dose in 3-4d 2 tablet 0 07/28/2020 11/18/2020 Discontinued (LIST CLEANUP) fluticasone propionate 0.05 mg/actuat metered dose nasal spray (20 sources) Corticosteroid Start: 10-23-2023 fluticasone (F LONASE) 50 MCG/ACT nasal spray Indications: Acute pansinusitis, recurrence not specified 1 spray by Nasal route daily 3 each 1 10/23/2023 Active Start: 03-29-2022 End: 10-23-2023 fluticasone (FLONASE) 50 MCG /ACT nasal spray Indications: Acute pansinusitis, recurrence not specified 1 spray by Nasal route daily 3 each 1 03/29/2022 10/23/2023 Discontinued Start: 03-01-2021 take 1 spray(s) nasa l route once daily fluticasone propionate (FLONASE) 50 mcg/actuation nasal spray Instill 1 (one) spray into each nostril daily . 0 03/01/2021 Active Start: 01-03-2021 fluticasone (F LONASE) 50 MCG/ACT nasal spray Indications: Acute pansinusitis, recurrence not specified 1 spray by Nasal route daily 1 Bottle 0 01/03/2021 Active Start: 07-27-2019 take 1 spray(s) nasa l route once daily fluticasone (FLONASE) 50 MCG/ACT nasal spray 1 spray by Each Nostril route daily 1 Bottle 0 07/27/2019 Active Start: 05-30-2019 take 1 spray(s) nasa l route once daily fluticasone (FLONASE) 50 MCG/ACT nasal spray 1 spray by Each Nostril route daily 1 Bottle 0 05/30/2019 Active fluticasone 0.05 mg/inh Nasal [place] (8 sources) Start: 03-01-2021 fluticasone 0.05 mg/inh Nasal [place] 50 mcg, Nasal, Daily, Refill(s) 0, Allergy symptoms Start Date: 03/01/21 Status: Ordered gabapentin 300 mg oral capsule (1 source) Anti-epileptic Agent Start: 05-27-2023 gabapentin (NEURONTIN) 300 MG capsule hydroCHLOROthiazide 25 mg / triamterene 37.5 mg oral capsule (20 sources) Potassium-spar ing Diuretic, Thiazide Diuretic Start: 06-27-2022 take 1 capsule by mouth once daily Triamterene-[place] chlorothiazid Active 1 CAP PO Daily June 27, 2022 1:00am Start: 12-29-2017 End: 05-20-2019 take 1 tablet by mouth once daily Triamterene-Hydrochlorothiazid Discontin ued 1 TAB PO Daily December 29, 2017 12:00am May 20, 2019 1:52pm hydrocortisone 25 mg/ml topical cream (7 sources) Corticosteroid Start: 06-19-2023 hydrocortisone 2.5 % cream Start: 04-18-2022 hydrocortisone 2.5 % cream ketoconazole 20 mg/ml topical cream (2 sources) Azole Antifungal Start: 06-19-2023 ketoconazole (NIZORAL) 2 % cream levothyroxine sodium 0.05 mg oral tablet (20 sources) l-Thyroxine Start: 11-02-2014 take 50 ug by mouth once daily Levothyroxine Active 50 MCG PO Daily December 29, 2017 12:00am Start: 11-02-2014 take 1 tablet by karthik th once daily levothyroxine 50 mcg (0.05 mg) Tab 50 microgram = 1 tab(s), Oral, Daily, Refills(s) 0, Thyroid Start Date: 11/02/14 Status: Ordered loperamide hydrochloride 2 mg oral capsule (1 source) Opioid Agonist Start: 11-27-2020 End: 12-07-2020 take 1 capsule by mouth four times daily as needed for diarrhea loperamide (RA ANTI-DIARRHEAL) 2 MG capsule Take 1 capsule by mouth 4 times daily as needed for Diarrhea 30 capsule 0 11/27/2020 12/07/2020 Active loratadine 10 mg oral capsule (20 sources) Start: 07-17-2021 take 1 capsule by mouth once daily as needed loratadine 10 mg oral capsule 10 mg = 1 cap(s), Oral, Daily, PRN Allergy symptoms Start Date: 07/17/21 Status: Ordered Start: 05-20-2019 End: 05-29-2022 take 10 mg by mouth once daily Loratadine Discontinued 10 MG PO Daily May 20, 2019 1:00am May 29, 2022 9:36am meclizine hydrochloride 25 mg oral tablet (1 source) Antiemetic Start: 03-24-2020 End: 03-31-2020 take 1 tablet by mouth three times daily as needed for nausea meclizine (ANTIVERT) 25 MG tablet Take 1 tablet by mouth 3 times daily as needed for Dizziness or Nausea 30 tablet 0 03/24/2020 03/31/2020 Active meloxicam 7.5 mg oral tablet (4 sources) Nonsteroidal Anti-inflammatory Drug Start: 07-17-2021 take 1 tablet by mouth once daily meloxicam 7.5 mg oral tablet 7.5 mg = 1 tab(s), Oral, Daily, Refills(s) 0, Inflammation Start Date: 07/17/21 Status: Ordered Metamucil Fibre Therapy (8 sources) Start: 07-17-2021 take 1 capsule by mouth once daily Metamucil Fibre Therapy 1 cap, Oral, Daily, Constipation Start Date: 07/17/21 Status: Ordered Start: 07-17-2021 take 1 capsule by mo ut once daily Metamucil Fibre Therapy capsule, Oral, Daily, Constipation Start Date: 07/17/21 Status: Ordered metoprolol tartrate 50 mg oral tablet (5 sources) beta-Adrenergic Natty Start: 11-14-2023 metopr olol tartrate (LOPRESSOR) tablet 50 mg Start: 11-14-2023 metoprolol (LO PRESSOR) injection 5 mg Start: 10-23-2023 take 0.5 tablet by m outh twice daily metoprolol tartrate (LOPRESSOR) 25 MG tablet Take 0.5 tablets by mouth 2 times daily 15 tablet 1 10/23/2023 Active Multiple Vitamins Tab (8 sources) Start: 01-16-2016 take 1 tablet by mouth once daily Multiple Vitamins Tab 1 tab(s), Oral, Daily, Refill(s) 0, Prophylaxis Start Date: 01/16/16 Status: Ordered Multiple Vitamins-Minerals (THERAPEUTIC MULTIVITAMIN-MINERALS) tablet (20 sources) take 1 tablet by mouth once daily Multiple Vitamins-Minerals (THERAPEUTIC MULTIVITAMIN-MINERALS) tablet Take 1 tablet by mouth daily 0 Active Multivitamin preparation (20 sources) Start: 05-20-2019 take 1 tablet by mouth once daily Multivitamin Active 1 TAB PO Daily May 20, 2019 12:00am Start: 05-20-2019 take 1 tablet by karthik th once daily Multivitamin Active 1 TAB PO Daily May 20, 2019 1:00am Multivitamin Act [place] multivitamin with minerals tablet (3 sources) take 1 tablet by mouth once daily multivitamin with minerals tablet Take 1 (one) tablet by mouth daily . 0 Active naproxen sodium 220 mg oral tablet (20 sources) Nonsteroidal Anti-inflammatory Drug Start: take 220 mg by mouth twice daily Naproxen Sodium Active 220 MG PO Twice daily June 27, 2022 1:00am Start: 01-10-2018 End: 05-20-2019 take 220 mg by mouth twice daily Naproxen Sodium Discontinued 220 MG PO Twice daily January 10, 2018 12:00am May 20, 2019 1:43pm nitrofurantoin, macrocrystals 25 mg / nitrofurantoin, monohydrate 75 mg oral capsule (1 source) Nitrofuran Antibacterial Start: 10-14-2021 End: 10-24-2021 take 1 capsule by mouth twice daily nitrofurantoin, macrocrystal-monohydrate, (MACROBID) 100 MG capsule Take 1 capsule by mouth 2 times daily for 10 days 20 capsule 0 10/14/2021 10/24/2021 Active nystatin 367502 unt/ml oral suspension (20 sources) Polyene Antifungal Start: 10-18-2023 End: 10-28-2023 take 5 mL by mouth four times daily nystatin (MYCOSTATIN) [id number] UNIT/ML suspension Take 5 mLs by mouth 4 times daily for 10 days Swish and swallow 200 mL 0 10/18/2023 10/28/2023 Active Start: 01-30-2023 take 4 mL by mouth f our times daily Nystatin [id number] UNIT/ML 4 ml swish and swallow Mouth/Throat Four times a day for 14 days Jan, Not-Taking Start: 12-20-2022 take 5 mL by mouth f our times daily nystatin (MYCOSTATIN) [id number] UNIT/ML suspension Take 5 mLs by mouth 4 times daily Swish and swallow. 200 mL 0 02/27/2023 Active Start: 11-25-2022 End: 11-25-2022 take 5 mL by mouth four times daily nystatin (MYCOSTATIN) [id number] UNIT/ML suspension Take 5 mLs by mouth 4 times daily Swish and swallow. 200 mL 0 11/25/2022 11/25/2022 Discontinued (DUPLICATE) Start: 08-15-2022 take 5 mL by mouth f our times daily nystatin (MYCOSTATIN) [id number] UNIT/ML suspension take 5 milliliters by mouth four times a day as directed 60 mL 2 08/15/2022 Active Start: 05-29-2022 take 5 mL by mouth f our times daily nystatin (MYCOSTATIN) [id number] UNIT/ML suspension Take 5 mLs by mouth 4 times daily 60 mL 2 05/29/2022 Active Start: 05-29-2022 Nystatin Activ e 1 UNIT MUCOUS MEM Twice daily May 29, 2022 1:00am Start: 02-08-2022 nystatin (MYCO STATIN) [id number] UNIT/GM cream Apply topically 2 times daily Apply topically 2 times daily. 60 g 0 02/08/2022 Active Start: 02-27-2021 take 5 mL by mouth f our times daily nystatin (MYCOSTATIN) [id number] UNIT/ML suspension Take 5 mLs by mouth 4 times daily 150 mL 0 02/27/2021 Active Nystatin 664196 units/g (4 sources) Nystatin 887858 units/g applied topically as directed four times a day Active ondansetron 4 mg disintegrating oral tablet (9 sources) Serotonin-3 Receptor Antagonist Start: 10-23-19 take 1 tablet by mouth three times daily as needed for nausea ondansetron (ZOFRAN-ODT) 4 MG disintegrating tablet Take 1 tablet by mouth 3 times daily as needed for Nausea or Vomiting 21 tablet 0 10/23/2023 Active Start: 10-23-2023 End: 10-23-2023 ondansetron (ZOFRAN) injecti on 4 mg Start: 11-18-2020 take 1 tablet by karthik every eight hours as needed for nausea ondansetron (ZOFRAN ODT) 4 MG disintegrating tablet Take 1 tablet by mouth every 8 hours as needed for Nausea or Vomiting 10 tablet 0 11/18/2020 Active Start: 11-18-2020 End: 11-18-2020 ondansetron (ZOFRAN) injecti on 4 mg Start: 03-31-2020 End: 03-31-2020 ondansetron (ZOFRAN) injecti on 4 mg 24 hr oxybutynin chloride 5 mg extended release oral tablet (2 sources) Cholinergic Muscarinic Antagonist Start: 11-27-2020 take 1 tablet by mouth once daily oxybutynin (DITROPAN XL) 5 MG extended release tablet Take 1 tablet by mouth daily 30 tablet 0 11/27/2020 Active pantoprazole 20 mg delayed release oral tablet (20 sources) Proton Pump Inhibitor Start: 09-16-2023 take 20 mg by mouth twice daily Protonix 20 mg, Oral, BID, Refills(s) 0, Control of stomach acid Start Date: 09/16/23 Status: Ordered Start: 06-04-2022 End: 07-05-2023 take 1 tablet by mouth twice daily Pantoprazole [address] Tab 20 mg = 1 tab(s), Oral, BID, X 90 day(s), # 180 tab(s), Refills(s) 3, Pharmacy: [facility] [id number], 162, cm, 07/10/22 14:20:00 EST, Height/Length Dosing, 100.4, kg, 07/10/22 14:20:00 EST, Weight Dosing Start Date: 07/10/22 Stop Date: 07/05/23 Status: Ordered Start: 05-15-2021 take 20 mg by mouth once daily Pantoprazole Active 20 MG PO Daily May 29, 2022 1:00am Start: 01-17-2021 pantoprazole ( PROTONIX) 20 MG tablet pilocarpine hydrochloride 5 mg oral tablet (20 sources) Cholinergic Receptor Agonist Start: 12-29-2017 take 5 mg by mouth three times daily Pilocarpine Hcl Active 5 MG PO Three times daily December 29, 2017 12:00am pravastatin sodium 40 mg oral tablet (20 sources) HMG-CoA Reductase Inhibitor Start: 11-13-2011 take 40 mg by mouth once daily at bedtime Pravastatin Active 40 MG PO Daily at bedtime December 29, 2017 12:00am Pravastatin 40 m g Active predniSONE 20 mg oral tablet (20 sources) Start: 07-01-2023 predniSONE (DE LTASONE) 20 MG tablet 2 tablets daily x 2 days then 1 tablet 6 tablet 0 07/01/2023 Active Start: 03-01-2023 take 40 mg by mouth once daily Prednisone Active 40 MG PO Daily March 01, 2023 12:00am Start: 01-30-2023 take 1 tablet by karthik every twelve hours prednisone 20 MG 1 tablet Orally BID for 5 Jan, Active Start: 12-29-2017 End: 01-10-2018 take 60 mg by mouth once daily Prednisone Discontinued 60 MG PO Daily December 29, 2017 12:00am January 10, 2018 8:42am psyllium 400 mg oral capsule (5 sources) Start: 05-20-2019 Psyllium Husk (Fiber (Psyllium Husk)) 0.4 gram Capsule Active 1 CAP PO Daily May 20, 2019 1:00am Start: 07-04-2006 psyllium (META MUCIL) 0.52 gram capsule Take by mouth See Admin Instructions . 0 07/04/2006 Active Psyllium Husk (Fiber (Psylli um Husk)) 0.4 gram Capsule (12 sources) Start: 05-20-2019 Psyllium Husk (Fiber (Psyllium Husk)) 0.4 gram Capsule Active 1 CAP PO Daily May 20, 2019 1:00am Start: 05-20-2019 Psyllium Husk (Fiber (Psyllium Husk)) 0.4 gram Capsule Active 1 CAP PO Daily May 20, 2019 12:00am Psyllium Husk - (4 sources) Psyllium Husk - as directed Active Psyllium-Calcium (METAMUCIL PLUS CALCIUM) CAPS (20 sources) Psyllium-Calcium (METAMUCIL PLUS CALCIUM) CAPS Take by mouth Take with 8 oz water. 0 Active Psyllium-Calcium (METAMUCIL PLUS CALCIUM) CAPS Take by mouth. Take with 8 oz water. 0 Active raloxifene hydrochloride 60 mg oral tablet (20 sources) Estrogen Agonist/Antagonist Start: 06-27-2022 take 60 mg by mouth once daily Raloxifene Active 60 MG PO Daily June 27, 2022 1:00am Start: 12-29-2017 End: 05-20-2019 take 60 mg by mouth once daily Raloxifene Discontinued 60 MG PO Daily December 29, 2017 12:00am May 20, 2019 1:52pm topiramate 50 mg oral tablet (20 sources) Start: 07-04-2006 take 50 mg by mouth at bedtime Topiramate Active 50 MG PO Bedtime December 29, 2017 12:00am traZODone hydrochloride 50 mg oral tablet (1 source) Serotonin Reuptake Inhibitor Start: 05-06-2023 take 1 tablet by mouth once daily traZODone (DESYREL) 50 MG tablet Take 1 tablet by mouth nightly 30 tablet 2 05/06/2023 Active triamcinolone acetonide 1 mg/ml topical cream (5 sources) Corticosteroid Start: 04-16-2022 triamcinolone (KENALOG) 0.1 % cream Indications: Allergic contact dermatitis, unspecified trigger Apply topically 2 times daily for 7-10 days. No more than 2 weeks. 30 g 0 04/16/2022 Active vitamin b12 1 mg oral tablet (10 sources) Vitamin B12 take 1 tablet by mouth once daily cyanocobalamin 1000 MCG tablet Take 1 tablet by mouth daily 0 Active Vitamin D (8 sources) Start: 03-24-2019 Vitamin D 2000 IU, Oral, BID, Ordered by another provider., Refills(s) 0, Prophylaxis Start Date: 03/24/19 Status: Ordered Completed/Discontinued Medications Medication Drug Class(es) Dates Sig (Normalized) Sig (Original) ALPRAZolam 0.5 mg oral tablet (20 sources) Benzodiazepine Start: 11-13-2011 ALPRAZolam (NIRAVAM) 0.5 MG dissolvable tablet Dissolve 1 (one) tablet (0.5 mg total) on top of tongue . 0 11/13/2011 Active Start: 11-13-2011 End: 08-23-2023 take 0.5 mg by mouth at bedtime Alprazolam Discontinue d 0.5 MG PO Bedtime December 29, 2017 12:00am June 03, 2019 11:13am take 1 tablet by karthik th every twelve hours ALPRAZolam 0.5 MG 1 tablet Orally Twice a day Not-Taking amoxicillin 875 mg / clavulanate 125 mg oral tablet (19 sources) Penicillin-class Antibacterial Start: 08-02-2023 take 1 tablet by mouth every twelve hours Amoxicillin-Pot Clavulanate 875-125 MG 1 tablet Orally every 12 hrs for 10 day(s) Jan, Not-Taking Start: 11-25-2022 End: 12-05-2022 take 1 tablet by mouth twice daily amoxicillin-clavulanate (AUGMENTIN) 875-125 MG per tablet Take 1 tablet by mouth 2 times daily for 10 days 20 tablet 0 11/25/2022 11/25/2022 Discontinued (DUPLICATE) Start: 09-07-2021 End: 09-17-2021 take 1 tablet by mouth twice daily amoxicillin-clavulanate (AUGMENTIN) 875-125 MG per tablet Indications: Sinusitis, bacterial Take 1 tablet by mouth 2 times daily for 10 days 20 tablet 0 09/07/2021 09/17/2021 Active Start: 06-12-2021 End: 06-22-2021 take 1 tablet by mouth twice daily amoxicillin-clavulanate (AUGMENTIN) 875-125 MG per tablet Indications: Acute non-recurrent pansinusitis Take 1 tablet by mouth 2 times daily for 10 days 20 tablet 0 06/12/2021 06/22/2021 Active Start: 01-03-2021 End: 01-10-2021 take 1 tablet by mouth twice daily amoxicillin-clavulanate (AUGMENTIN) 875-125 MG per tablet Indications: Acute pansinusitis, recurrence not specified Take 1 tablet by mouth 2 times daily for 7 days 14 tablet 0 01/03/2021 01/10/2021 Active Start: 05-30-2019 End: 06-09-2019 take 1 tablet by mouth twice daily amoxicillin-clavulanate (AUGMENTIN) 875-125 MG per tablet Take 1 tablet by mouth 2 times daily for 10 days 20 tablet 0 05/30/2019 06/09/2019 Active cephalexin 500 mg oral capsule (14 sources) Cephalosporin Antibacterial Start: 06-03-2019 End: 03-27-2022 take 500 mg by mouth every twelve hours Cephalexin Discontinued 500 MG PO Q12H June 03, 2019 1:00am March 27, 2022 8:11am dexamethasone phosphate 10 mg/ml injectable solution (1 source) Corticosteroid Start: 02-08-2023 End: 02-08-2023 dexamethasone (DECADRON) injection 8 mg ketorolac tromethamine 10 mg oral tablet (14 sources) Nonsteroidal Anti-inflammatory Drug, Cyclooxygenase Inhibitor Start: 06-03-2019 End: 05-29-2022 take 10 mg by mouth every six hours Ketorolac Discontinued 10 MG PO Q6H 10 June 03, 2019 1:00am May 29, 2022 9:36am 50 ml magnesium sulfate 40 mg/ml injection (1 source) Start: 11-14-2023 End: 11-14-2023 magnesium sulfate 2000 mg in 50 mL IVPB premix potassium chloride 10 meq extended release oral tablet (6 sources) Start: 11-14-2023 End: 11-14-2023 potassium chloride (KLOR-CON) extended release tablet 40 mEq Start: 11-22-2020 potassium chlo ride (KLOR-CON M) 20 MEQ extended release tablet Take one tablet on Saturday, and Saturday. 3 tablet 0 11/22/2020 Active 50 ml sodium chloride 9 mg/m l injection (2 sources) Start: 10-23-2023 End: 10-23-2023 sodium chloride 0.9 % bolus 1,000 mL Start: 11-18-2020 End: 11-18-2020 0.9 % sodium chloride bolus traMADol hydrochloride 50 mg oral tablet (20 sources) Opioid Agonist Start: 06-27-2022 End: 07-03-2022 take 50 mg by mouth twice daily Tramadol Discontinued 50 MG PO Twice daily June 27, 2022 1:00am July 03, 2022 10:30am Problems Active Problems Problem Classification Problem Date Documented Da te Episodic/Chronic Cardiac dysrhythmias (20 sources) Atrial flutter; Translations: [Atypical atrial flutter] Onset: 4 Resolved: 0 07-11-2017 Chronic Cataract (20 sources) Cortical senile cataract; Translations: [Cortical age-related cataract, unspecified eye] Onset: 5 01-31-2015 Chronic Chronic kidney disease (19 sources) Chronic kidney disease stage 3; Translations: [Chronic renal disease, stage III] Onset: 2 Resolved: 2 10-26-2021 Chronic Deficiency and other anemia (2 sources) Hemoglobin low; Translations: [Anemia, unspecified] Episodic Disorders of lipid metabolism (20 sources) Hyperlipidemia; Translations: [Hyperlipidemia, unspecified] Onset: 1 02-08-2011 Chronic Disorders of teeth and jaw (8 sources) Temporomandibular joint disorder 10-16-2014 Episodic Diverticulosis and diverticulitis (20 sources) Diverticulitis; Translations: [Diverticulitis of intestine, part unspecified, without perforation or abscess without bleeding] Onset: 1 02-08-2011 Chronic Esophageal disorders (20 sources) Gastroesophageal reflux disease; Translations: [Gastro-esophageal reflux disease without esophagitis] Onset: 3 08-21-2012 Chronic Essential hypertension (20 sources) Hypertensive disorder; Translations: [Essential hypertension] Onset: 4 06-08-2011 Chronic Fever of unknown origin (1 source) Fever; Translations: [Fever, unspecified fever cause] Episodic Fluid and electrolyte disorders (1 source) Hypokalemia; Translations: [Hypokalemia] Onset: 4 Episodic Genitourinary symptoms and ill-defined conditions (20 sources) Urinary incontinence; Translations: [Unspecified urinary incontinence] Onset: 4 Chronic Genitourinary symptoms and ill-defined conditions (20 sources) Increased frequency of urination; Translations: [Nocturia] Onset: 4 07-17-2021 Episodic Headache; including migraine (20 sources) Cluster headache; Translations: [Migraine] Onset: 1 Resolved: 7 10-10-2016 Chronic Headache; including migraine (1 source) Acute headache; Translations: [Acute nonintractable headache, unspecified headache type] Episodic Hemorrhoids (8 sources) Internal hemorrhoids 03-01-2021 Episodic Malaise and fatigue (2 sources) Asthenia; Translations: [Weakness] Episodic Menopausal disorders (1 source) Postmenopausal atrophic vaginitis; Translations: [Postmenopausal atrophic vaginitis] Onset: 4 Chronic Miscellaneous mental health disorders (7 sources) Bruxism (teeth grinding); Translations: [Other somatoform disorders] Onset: 3 05-02-2023 Chronic Mood disorders (20 sources) Dysthymia; Translations: [Dysthymic disorder] Onset: 1 04-24-2011 Chronic Mycoses (2 sources) Candidiasis of vagina; Translations: [Candidiasis of vulva and vagina] Episodic Nausea and vomiting (4 sources) Nausea, vomiting and diarrhea; Translations: [Nausea with vomiting, unspecified] Onset: 4 Episodic Nutritional deficiencies (20 sources) Vitamin D deficiency; Translations: [Vitamin D deficiency, unspecified] Onset: 9 07-21-2018 Chronic Nutritional deficiencies (1 source) Vitamin B deficiency; Translations: [Deficiency of other specified B group vitamins] Onset: 3 Episodic Osteoarthritis (20 sources) Localized, primary osteoarthritis of the shoulder region; Translations: [Primary osteoarthritis, unspecified shoulder] Onset: 2 02-09-2022 Chronic Other acquired deformities (3 sources) Scoliosis, unspecified; Translations: [Scoliosis, unspecified] Onset: 8 Chronic Other acquired deformities (2 sources) Other secondary scoliosis, lumbar region; Translations: [Other secondary scoliosis, lumbar region] Onset: 3 Chronic Other and unspecified benign neoplasm (11 sources) History of polyp of colon; Translations: [Personal history of colonic polyps] Onset: 3 07-17-2021 Episodic Other and unspecified benign neoplasm (1 source) Polyp of colon; Translations: [Polyp of colon] Onset: 4 Episodic Other HOME HEALTH NURSE infection and poliomyelitis (8 sources) H/O: poliomyelitis 07-17-2021 Episodic Other connective tissue disease (8 sources) H/O: arthritis 04-22-2012 Episodic Other diseases of kidney and ureters (1 source) Cyst of kidney; Translations: [Cyst of kidney, acquired] 03-13-2023 Episodic Other diseases of kidney and ureters (1 source) Cyst of kidney, acquired; Translations: [Cyst of kidney, acquired] Onset: 3 Episodic Other disorders of stomach and duodenum (10 sources) Intestinal metaplasia of gastric mucosa; Translations: [Gastric intestinal metaplasia, unspecified] Onset: 3 Episodic Other ear and sense organ disorders (6 sources) Hearing loss; Translations: [Unspecified hearing loss, unspecified ear] Onset: 3 05-02-2023 Chronic Other ear and sense organ disorders (2 sources) Sensorineural hearing loss, bilateral; Translations: [Sensorineural hearing loss, bilateral] Onset: 3 05-02-2023 Chronic Other ear and sense organ disorders (1 source) Sensorineural hearing loss, bilateral; Translations: [Sensorineural hearing loss, bilateral] Onset: 3 Chronic Other ear and sense organ disorders (2 sources) Unspecified hearing loss, unspecified ear; Translations: [Unspecified hearing loss, unspecified ear] Onset: 3 Chronic Other female genital disorders (1 source) Burning sensation of vagina; Translations: [Unspecified condition associated with female genital organs and menstrual cycle] Episodic Other gastrointestinal disorders (20 sources) Irritable bowel syndrome; Translations: [Irritable bowel syndrome without diarrhea] Onset: 1 04-24-2011 Chronic Other gastrointestinal disorders (2 sources) Diarrhea of presumed infectious origin; Translations: [Diarrhea, unspecified] Episodic Other gastrointestinal disorders (1 source) Diarrhea; Translations: [Diarrhea, unspecified] Episodic Other gastrointestinal disorders (8 sources) Constipation 07-17-2021 Episodic Other gastrointestinal disorders (1 source) Diarrhea, unspecified; Translations: [Diarrhea, unspecified] Onset: 4 Episodic Other nervous system disorders (20 sources) Chronic pain; Translations: [Other chronic pain] Chronic Other nervous system disorders (5 sources) Other chronic pain Chronic Other nervous system disorders (2 sources) Piriformis syndrome; Translations: [Lesion of sciatic nerve, right lower limb] Chronic Other nervous system disorders (2 sources) Lesion of sciatic nerve, right lower limb Chronic Other non-traumatic joint disorders (1 source) Shoulder pain; Translations: [Pain in right shoulder] Episodic Other non-traumatic joint disorders (1 source) Pain in right hip Episodic Other non-traumatic joint disorders (2 sources) Hip pain; Translations: [Hip Pain] Onset: 3 Episodic Other nutritional; endocrine; and metabolic disorders (20 sources) Morbid obesity; Translations: [Morbid (severe) obesity due to excess calories] Onset: 0 01-25-2020 Chronic Other nutritional; endocrine; and metabolic disorders (2 sources) Other symptoms and signs concerning food and fluid intake; Translations: [Other symptoms concerning nutrition, metabolism, and development] Onset: 4 10-23-2023 Episodic Other upper respiratory infections (20 sources) Chronic sinusitis; Translations: [Chronic sinusitis, unspecified] Onset: 1 03-31-2015 Chronic Other upper respiratory infections (7 sources) Acute frontal sinusitis; Translations: [Acute pansinusitis] Onset: 4 Episodic Otitis media and related conditions (13 sources) Acute transudative otitis media; Translations: [Fluid level behind tympanic membrane] Onset: 3 Episodic Residual codes; unclassified (20 sources) Sleep apnea; Translations: [Sleep apnea, unspecified] Onset: 3 08-21-2012 Chronic Comment on above: USES CPAP Residual codes; unclassified (5 sources) Obstructive sleep apnea syndrome; Translations: [Obstructive sleep apnea (adult) (pediatric)] Onset: 3 05-02-2023 Chronic Residual codes; unclassified (2 sources) Obstructive sleep apnea (adult) (pediatric); Translations: [Obstructive sleep apnea (adult) (pediatric)] Onset: 3 Chronic Residual codes; unclassified (1 source) History of arthroscopic procedure on shoulder; Translations: [Other specified postprocedural states] Episodic Residual codes; unclassified (8 sources) Chronic back pain 09-11-2013 Episodic Spondylosis; intervertebral disc disorders; other back problems (20 sources) Solitary sacroiliitis; Translations: [Sacroiliitis, not elsewhere classified] Onset: 3 Chronic Spondylosis; intervertebral disc disorders; other back problems (7 sources) Chronic low back pain; Translations: [Lumbago with sciatica, right side] Episodic Spondylosis; intervertebral disc disorders; other back problems (1 source) Spondylosis; intervertebral disc disorders; other back problems; Translations: [Other spondylosis with radiculopathy, lumbar region] Onset: 3 Sprains and strains (8 sources) Shoulder strain 07-17-2021 Episodic Systemic lupus erythematosus and connective tissue disorders (1 source) Systemic involvement of connective tissue, unspecified; 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, unspecified] Onset: 3 Chronic Thyroid disorders (20 sources) Hypothyroidism; Translations: [Hypothyroidism, unspecified] Onset: 1 02-08-2011 Chronic Unclassified (1 source) Patient encounter status; Translations: [Visit for screening mammogram] Unclassified (8 sources) Asymptomatic microscopic hematuria 06-28-2020 Unclassified (8 sources) Drug therapy finding 06-30-2019 Unclassified (2 sources) Pelvic Floor; Translations: [Pelvic Floor] Onset: 2 Unclassified (2 sources) Acute cough; Translations: [Acute cough] Onset: 3 Unclassified (1 source) Sciatica, right side; Translations: [Sciatica, right side] Onset: 3 Unclassified (1 source) Other intervertebral disc degeneration, lumbar region; Translations: [Other intervertebral disc degeneration, lumbar region] Onset: 3 Unclassified (1 source) Other low back pain; Translations: [Other low back pain] Onset: 3 Viral infection (2 sources) Viral disease; Translations: [Disease caused by 2019-nCoV] 07-01-2023 Episodic Viral infection (1 source) COVID-19; Translations: [COVID-19] Onset: 4 Past or Other Problems Problem Classification Problem Date Documented Da te Episodic/Chronic Abdominal hernia (20 sources) Diaphragmatic hernia; Translations: [Diaphragmatic hernia without obstruction or gangrene] Onset: 04-24-2011 03-31-2015 Episodic Abdominal pain (20 sources) Epigastric pain; Translations: [Epigastric pain] Onset: 04-30-2012 Resolved: 07-16-2016 07-16-2016 Episodic Cancer; other and unspecified primary (20 sources) H/O: neoplasm; Translations: [Personal history of other diseases of the digestive system] Onset: 04-24-2011 08-08-2020 Episodic Cardiac dysrhythmias (20 sources) Palpitations; Translations: [Tachycardia] Onset: 04-24-2011 Resolved: 07-16-2016 04-24-2011 Episodic Cardiac dysrhythmias (6 sources) Atypical atrial flutter; Translations: [Atypical atrial flutter] Resolved: 01-25-2020 01-25-2020 Conditions associated with dizziness or vertigo (1 source) Dizziness and giddiness; Translations: [Dizziness and giddiness] Onset: 02-27-2023 Episodic Diseases of mouth; excluding dental (20 sources) Glossodynia; Translations: [Glossodynia] Onset: 01-14-2012 Resolved: 12-29-2015 12-29-2015 Episodic Gastritis and duodenitis (20 sources) Gastritis; Translations: [Gastritis, unspecified, without bleeding] Onset: 05-05-2012 Resolved: 10-10-2016 10-10-2016 Episodic Immunizations and screening for infectious disease (1 source) Contact with and (suspected) exposure to other viral communicable diseases; Translations: [Exposure to COVID-19 virus] Episodic Other and unspecified benign neoplasm (10 sources) Benign neoplasm of stomach; Translations: [Benign neoplasm of stomach] Onset: 04-24-2011 04-24-2011 Episodic Other and unspecified benign neoplasm (20 sources) Tubular adenoma of colon; Translations: [Benign neoplasm of colon, unspecified] Onset: 03-03-2021 03-03-2021 Episodic Other ear and sense organ disorders (1 source) Other infective otitis externa, left ear; Translations: [Other infective otitis externa, left ear] Onset: 04-13-2023 Episodic Other gastrointestinal disorders (20 sources) Dysphagia; Translations: [Dysphagia, unspecified] Onset: 04-30-2012 Resolved: 07-16-2016 07-16-2016 Episodic Other screening for suspected conditions (not mental disorders or infectious disease) (6 sources) Patient encounter status; Translations: [Encounter for screening mammogram for malignant neoplasm of breast] Onset: 05-09-2023 Episodic Other skin disorders (20 sources) Disorder of connective tissue; 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, unspecified] Onset: 07-28-2020 Resolved: 07-28-2020 07-28-2020 Chronic Other skin disorders (20 sources) Mass of neck; Translations: [Localized swelling, mass and lump, neck] Onset: 08-28-2013 Resolved: 07-11-2017 07-11-2017 Episodic Unclassified (16 sources) Other low back pain; Translations: [Other low back pain] Unclassified (3 sources) Other low back pain M54.59 Unclassified (2 sources) Onset: 05-06-2023 05-06-2023 Unclassified (1 source) Acute cough; Translations: [Acute cough] Onset: 02-27-2023 Urinary tract infections (2 sources) Acute cystitis; Translations: [Acute cystitis with hematuria] Onset: 12-11-2022 Episodic Results Test Name Value Interpretation Reference Range Facility Alanine aminotransferase [En zymatic activity/volume] in Serum or PlasmaOrdered By: Obie Hylton on 12-19-2023 ALT [Catalytic activity/Vol] 10 U/L Normal 7-52 [facility] Comment on above: Performed By: #### C 3, CH50, C4 #### [facility] , #### ESR, CMP, CBC, ADDONUAPLUS #### [facility] [address] [place] [address] Albumin [Mass/volume] in Ser um or Plasma by Bromocresol green (BCG) dye binding methoOrdered By: Obie Hylton on 12-19-2023 Albumin BCG dye [Mass/Vol] 3.9 g/dL 3.5-5.7 [facility] Alkaline phosphatase [Enzyma tic activity/volume] in Serum or PlasmaOrdered By: Obie Hylton on 12-19-2023 ALP [Catalytic activity/Vol] 56 U/L Normal 34-104 [facility] Comment on above: Result Comment: PERF ORMED BY: [place] [address] PATHOLOGIST SAFETY LAMP KEEPER MANUEL PABON M.D. Performed By: #### C 3, CH50, C4 #### [facility] , #### ESR, CMP, CBC, ADDONUAPLUS #### [facility] [address] [place] [address] Aspartate aminotransferase [ Enzymatic activity/volume] in Serum or PlasmaOrdered By: Obie Hylton on 12-19-2023 AST [Catalytic activity/Vol] 13 U/L Normal 13-39 [facility] Comment on above: Performed By: #### C 3, CH50, C4 #### [facility] , #### ESR, CMP, CBC, ADDONUAPLUS #### [facility] [address] [place] [address] Automated basophil %Ordered By: Obie Hylton on 12-19-2023 Basophils/100 WBC (Bld) 0.3 % Normal . [facility] Comment on above: Performed By: #### C 3, CH50, C4 #### [facility] , #### ESR, CMP, CBC, ADDONUAPLUS #### [address] Automated basophil countOrde red By: Obie Ramirezrow on 12-19-2023 Basophils (Bld) [#/Vol] 0.0 10*3/uL Normal 0.0-0.2 [facility] Comment on above: Performed By: #### C 3, CH50, C4 #### [facility] , #### ESR, CMP, CBC, ADDONUAPLUS #### [address] Automated blood monocyte cou ntOrdered By: Obie Warner on 12-19-2023 Monocytes (Bld) [#/Vol] 0.5 10*3/uL Normal 0.0-0.8 [facility] Comment on above: Performed By: #### C 3, CH50, C4 #### [facility] , #### ESR, CMP, CBC, ADDONUAPLUS #### [address] Automated eosinophil %Ordere d By: Obie Warner on 12-19-2023 Eosinophils/100 WBC (Bld) 2.5 % Normal . [facility] Comment on above: Performed By: #### C 3, CH50, C4 #### [facility] , #### ESR, CMP, CBC, ADDONUAPLUS #### [address] Automated eosinophil countOr dered By: Obie Ramirezrow on 12-19-2023 Eosinophils (Bld) [#/Vol] 0.1 10*3/uL Normal 0.0-0.45 [facility] Comment on above: Performed By: #### C 3, CH50, C4 #### [facility] , #### ESR, CMP, CBC, ADDONUAPLUS #### [facility] [address] [place] [address] Automated monocyte %Ordered By: Obie Ramirezrow on 12-19-2023 Monocytes/100 WBC (Bld) 9.2 % Normal . [facility] Comment on above: Performed By: #### C 3, CH50, C4 #### [facility] , #### ESR, CMP, CBC, ADDONUAPLUS #### [address] Automated neutrophil %Ordere d By: Obie Ramirezrow on 12-19-2023 Neutrophils/100 WBC (Bld) 70.1 % Normal . [facility] Comment on above: Performed By: #### C 3, CH50, C4 #### [facility] , #### ESR, CMP, CBC, ADDONUAPLUS #### [address] Bacteria [Presence] in Urine sediment by Light microscopyOrdered By: Obieradha Hylton on 12-19-2023 Bacteria LM Ql (Urine sed) Rare [HPF] None Seen [facility] Bilirubin Test strip Ql (U)O rdered By: Obie Ramirezrow on 12-19-2023 Bilirubin Ql (U) Negative Negative [facility] Bilirubin.total [Mass/volume ] in Serum or PlasmaOrdered By: Obie Hylton on 12-19-2023 Bilirubin [Mass/Vol] 0.4 mg/dL Normal 0.3-1.0 [facility] Comment on above: Performed By: #### C 3, CH50, C4 #### [facility] , #### ESR, CMP, CBC, ADDONUAPLUS #### [facility] [address] [place] [address] Calcium [Mass/volume] in Ser um or PlasmaOrdered By: Obie Hylton on 12-19-2023 Calcium [Mass/Vol] 9.1 mg/dL Normal 8.6-10.3 [facility] Comment on above: Performed By: #### C 3, CH50, C4 #### [facility] , #### ESR, CMP, CBC, ADDONUAPLUS #### [facility] [address] [place] [address] Carbon dioxide, total [Moles /volume] in Serum or PlasmaOrdered By: Obie Hylton on 12-19-2023 CO2 [Moles/Vol] 27.0 mmol/L Normal 21.0-31.[address] [facility] Comment on above: Performed By: #### C 3, CH50, C4 #### [facility] , #### ESR, CMP, CBC, ADDONUAPLUS #### [address] Chloride [Moles/volume] in S liat or PlasmaOrdered By: Obie Hylton on 12-19-2023 Chloride [Moles/Vol] 107 mmol/L Normal 98-107 [facility] Comment on above: Performed By: #### C 3, CH50, C4 #### [facility] , #### ESR, CMP, CBC, ADDONUAPLUS #### [facility] [address] [place] [address] Color of Urine by AutoOrdere d By: Obie Hylton on 12-19-2023 Color (U) Light-yellow Normal Yellow [facility] Comment on above: Order Comment: Name Collection Type:: Clean-Voided Midstream Performed By: #### C 3, CH50, C4 #### [facility] , #### ESR, CMP, CBC, ADDONUAPLUS #### [facility] [address] [place] [address] [place] Complement C3on 12-19-2023 Complement C3 120 mg/dL Normal 82-167 [facility] Comment on above: Result Comment: Perf ormed at: - [facility] [address] [id number] Train Gateman: Usman Draper PhD, Phone: [phone] Performed By: #### C 3, CH50, C4 #### [facility] , #### ESR, CMP, CBC, ADDONUAPLUS #### [address] Complement C4on 12-19-2023 Complement C4 22 mg/dL Normal 12-38 [facility] Comment on above: Result Comment: PERF ORMED BY: [place] [address] PATHOLOGIST SAFETY LAMP KEEPER MANUEL PABON M.D. Performed By: #### C 3, CH50, C4 #### [facility] , #### ESR, CMP, CBC, ADDONUAPLUS #### [address] Complement Total (CH50)on Complement Total (CH50) 57 Normal >41 [facility] Comment on above: Result Comment: Age Male Female 1 - 30 days Not Estab. Not Estab. 31 days - 6 months >32 >20 7 months - 17 years >39 >39 >17 years >41 >41 NOTE: The adult ( >17 years ) reference interval range is used to flag abnormals on this report. If the patient is 17 years old or younger, use the table above to determine out of range values. Performed at: - [facility] [id number] Train Gateman: Usman Draper PhD, Phone: [phone] PERFORMED BY: [place] [address] PATHOLOGIST SAFETY LAMP KEEPER MANUEL PABON M.D. Performed By: #### C 3, CH50, C4 #### [facility] , #### ESR, CMP, CBC, ADDONUAPLUS #### [address] Complete Blood Count Auto Di ffon 12-19-2023 Mean Corpuscular HGB Conc 33.8 g/dL Normal 32.0-35.0 [facility] Comment on above: Performed By: #### C 3, CH50, C4 #### [facility] , #### ESR, CMP, CBC, ADDONUAPLUS #### [facility] [address] [place] [address] NRBC% 0.2 /100{WBC} Normal 0-0.5 [facility] Comment on above: Performed By: #### C 3, CH50, C4 #### [facility] , #### ESR, CMP, CBC, ADDONUAPLUS #### [address] Comprehensive Metabolic Pane trevor 12-19-2023 Albumin [Mass/Vol] 3.9 g/dL Normal 3.5-5.7 [facility] Comment on above: Performed By: #### C 3, CH50, C4 #### [facility] , #### ESR, CMP, CBC, ADDONUAPLUS #### [address] GFR/1.73 sq M.predicted MDRD (S/P/Bld) [Vol rate/Area] 47.958 mL/min/{1.73_m2} Normal [facility] Comment on above: Performed By: #### C 3, CH50, C4 #### [facility] , #### ESR, CMP, CBC, ADDONUAPLUS #### [address] Creatinine [Mass/volume] in Serum or PlasmaOrdered By: Obie Hylton on 12-19-2023 Creatinine [Mass/Vol] 1.16 mg/dL Normal 0.60-1.20 [facility] Comment on above: Performed By: #### C 3, CH50, C4 #### [facility] , #### ESR, CMP, CBC, ADDONUAPLUS #### [place] [address] [place] Dipstick and Microscopicon 0 12-19-2023 Bacteria,Urine Rare High None Seen [facility] Comment on above: Order Comment: Name Collection Type:: Clean-Voided Midstream Result Comment: PERF ORMED BY: [place] [address] PATHOLOGIST SAFETY LAMP KEEPER MANUEL PABON M.D. Performed By: #### C 3, CH50, C4 #### [facility] , #### ESR, CMP, CBC, ADDONUAPLUS #### [address] Bilirubin,Urine Negative Normal Negative [facility] Comment on above: Order Comment: Name Collection Type:: Clean-Voided Midstream Performed By: #### C 3, CH50, C4 #### [facility] , #### ESR, CMP, CBC, ADDONUAPLUS #### [address] Glucose Ql (U) Normal Normal Normal [facility] Comment on above: Order Comment: Name Collection Type:: Clean-Voided Midstream Performed By: #### C 3, CH50, C4 #### [facility] , #### ESR, CMP, CBC, ADDONUAPLUS #### [place] [address] [place] Nitrite,Urine Negative Normal Negative [facility] Comment on above: Order Comment: Name Collection Type:: Clean-Voided Midstream Performed By: #### C 3, CH50, C4 #### [facility] , #### ESR, CMP, CBC, ADDONUAPLUS #### [place] [address] [place] Occult Blood,Urine Negative Normal Negative [facility] Comment on above: Order Comment: Name Collection Type:: Clean-Voided Midstream Performed By: #### C 3, CH50, C4 #### [facility] , #### ESR, CMP, CBC, ADDONUAPLUS #### [address] Protein,Urine Negative Normal Negative [facility] Comment on above: Order Comment: Name Collection Type:: Clean-Voided Midstream Performed By: #### C 3, CH50, C4 #### [facility] , #### ESR, CMP, CBC, ADDONUAPLUS #### [address] RBC,Urine None Seen Normal 0-4 [facility] Comment on above: Order Comment: Name Collection Type:: Clean-Voided Midstream Performed By: #### C 3, CH50, C4 #### [facility] , #### ESR, CMP, CBC, ADDONUAPLUS #### [address] Specificy [place],Urine 1.020 Normal 1.001-1.03 0 [facility] Comment on above: Order Comment: Name Collection Type:: Clean-Voided Midstream Performed By: #### C 3, CH50, C4 #### [facility] , #### ESR, CMP, CBC, ADDONUAPLUS #### [address] Squamous Epithelial Cell,Urine 0-1 Normal 0-2 [facility] Comment on above: Order Comment: Name Collection Type:: Clean-Voided Midstream Performed By: #### C 3, CH50, C4 #### [facility] , #### ESR, CMP, CBC, ADDONUAPLUS #### [address] Urobilinogen,Urine Normal Normal Normal [facility] Comment on above: Order Comment: Name Collection Type:: Clean-Voided Midstream Performed By: #### C 3, CH50, C4 #### [facility] , #### ESR, CMP, CBC, ADDONUAPLUS #### [address] WBC,Urine None Seen Normal 0-4 [facility] Comment on above: Order Comment: Name Collection Type:: Clean-Voided Midstream Performed By: #### C 3, CH50, C4 #### [facility] , #### ESR, CMP, CBC, ADDONUAPLUS #### [address] Epithelial cells.squamous [# /area] in Urine sediment by Microscopy high power fieldOrdered By: Obie Hylton on 12-19-2023 Epithelial cells.squamous LM.HPF (Urine sed) [#/Area] 0-1 [HPF] 0-2 [facility] Erythrocyte Sedimentation Ra heather 12-19-2023 ESR (Bld) [Velocity] 12 mm/h Normal 0-29 [facility] Comment on above: Result Comment: PERF ORMED BY: [place] [address] PATHOLOGIST SAFETY LAMP KEEPER MANUEL PABON M.D. Performed By: #### C 3, CH50, C4 #### [facility] , #### ESR, CMP, CBC, ADDONUAPLUS #### [address] Erythrocyte distribution wid th [Ratio] by Automated countOrdered By: Obie Hylton on 12-19-2023 Erythrocyte distribution width (RBC) [Ratio] 15.0 % Normal 11.9-15.3 [facility] Comment on above: Performed By: #### C 3, CH50, C4 #### [facility] , #### ESR, CMP, CBC, ADDONUAPLUS #### [address] Erythrocyte sedimentation ra te by Photometric methodOrdered By: Obie Hylton on 12-19-2023 ESR Photometric method (Bld) [Velocity] 12 mm/hr 0-29 [facility] Erythrocytes [#/area] in Uri ne sediment by Microscopy high power fieldOrdered By: Obie Hylton on 12-19-2023 RBC LM.HPF (Urine sed) [#/Area] None seen [HPF] 0-4 [facility] Erythrocytes [#/volume] in B lood by Automated countOrdered By: Obie Hylton on 12-19-2023 RBC (Bld) [#/Vol] 3.56 10*6/uL Low 3.60-5.00 [facility] Comment on above: Performed By: #### C 3, CH50, C4 #### [facility] , #### ESR, CMP, CBC, ADDONUAPLUS #### [facility] [address] [place] [address] [place] Glucose [Mass/volume] in Ser um or PlasmaOrdered By: Obie Hylton on 12-19-2023 Glucose [Mass/Vol] 92 mg/dL Normal 70-100 [facility] Comment on above: ADA recommended refe rence rangeRandom Glucose Reference Range is dependent on time and content of last meal. Glucose of more than 200 mg/dL in a nonstressed, ambulatory subject supports the diagnosis of Diabetes Mellitus. Result Comment: Panacea om Glucose Reference Range is dependent on time and content of last meal. Glucose of more than 200 mg/dL in a nonstressed, ambulatory subject supports the diagnosis of Diabetes Mellitus. ADA recommended reference range Performed By: #### C 3, CH50, C4 #### [facility] , #### ESR, CMP, CBC, ADDONUAPLUS #### [facility] [address] [place] [id number] [place] Glucose [Mass/volume] in Uri ne by Test stripOrdered By: Obie Hylton on 12-19-2023 Glucose Test strip (U) [Mass/Vol] Normal mg/dL Normal [facility] Hematocrit [Volume Fraction] of Blood by Automated countOrdered By: Obie Hylton on 12-19-2023 Hematocrit (Bld) [Volume fraction] 33.2 % Low 34.0-46.4 [facility] Comment on above: Performed By: #### C 3, CH50, C4 #### [facility] , #### ESR, CMP, CBC, ADDONUAPLUS #### [facility] [address] Hemoglobin Test strip Ql (U) Ordered By: Obie Warner on 12-19-2023 Hemoglobin Ql (U) Negative Negative [facility] Hemoglobin [Mass/volume] in BloodOrdered By: Obie Warner on 12-19-2023 Hemoglobin (Bld) [Mass/Vol] 11.2 g/dL Low 11.8-15.4 [facility] Comment on above: Performed By: #### C 3, CH50, C4 #### [facility] , #### ESR, CMP, CBC, ADDONUAPLUS #### [facility] [address] [place] [address] Ketones [Presence] in Urine by Test stripOrdered By: Obie Hylton on 12-19-2023 Ketones Ql (U) Negative Normal Negative [facility] Comment on above: Order Comment: Name Collection Type:: Clean-Voided Midstream Performed By: #### C 3, CH50, C4 #### [facility] , #### ESR, CMP, CBC, ADDONUAPLUS #### [facility] [address] [place] [address] Leukocyte esterase [Presence ] in Urine by Test stripOrdered By: Obie Hylton on 12-19-2023 Leukocyte esterase Test strip Ql (U) Negative Normal Negative [facility] Comment on above: Order Comment: Name Collection Type:: Clean-Voided Midstream Performed By: #### C 3, CH50, C4 #### [facility] , #### ESR, CMP, CBC, ADDONUAPLUS #### [address] Leukocytes [#/area] in Urine sediment by Microscopy high power fieldOrdered By: Obie Hylton on 12-19-2023 WBC LM.HPF (Urine sed) [#/Area] None seen [HPF] 0-4 [facility] Leukocytes [#/volume] correc pepito for nucleated erythrocytes in Blood by Automated counOrdered By: Obie Hylton on 12-19-2023 WBC corrected for nucl RBC Auto (Bld) [#/Vol] 5.9 10*3/uL 3.8-11.6 [facility] Leukocytes [#/volume] in Blo od by Automated countOrdered By: Obie Hylton on 12-19-2023 WBC (Bld) [#/Vol] 5.9 10*3/uL Normal 3.8-11.6 [facility] Comment on above: Performed By: #### C 3, CH50, C4 #### [facility] , #### ESR, CMP, CBC, ADDONUAPLUS #### [facility] [address] [place] [address] [place] Lymphocytes [#/volume] in Bl ood by Automated countOrdered By: Obie Ramirezrow on 12-19-2023 Lymphocytes (Bld) [#/Vol] 1.1 10*3/uL Normal 1.00-4.8 [facility] Comment on above: Performed By: #### C 3, CH50, C4 #### [facility] , #### ESR, CMP, CBC, ADDONUAPLUS #### [facility] [address] [place] [address] [place] Lymphocytes/100 leukocytes i n Blood by Automated countOrdered By: Obie Ramirezrow on 12-19-2023 Lymphocytes/100 WBC (Bld) 17.9 % Normal . [facility] Comment on above: Performed By: #### C 3, CH50, C4 #### [facility] , #### ESR, CMP, CBC, ADDONUAPLUS #### [facility] [address] [place] [address] [place] MCH [Entitic mass] by Automa pepito countOrdered By: Oibe Hylton on 12-19-2023 MCH (RBC) [Entitic mass] 31.5 pg Normal 24.7-34.3 [facility] Comment on above: Performed By: #### C 3, CH50, C4 #### [facility] , #### ESR, CMP, CBC, ADDONUAPLUS #### [facility] [address] [place] [address] MCHC Auto (RBC) [Mass/Vol]Or dered By: Oibe Hylton on 12-19-2023 MCHC (RBC) [Mass/Vol] 33.8 g/dL 32.0-35.0 [facility] MCV [Entitic volume] by Auto mated countOrdered By: Obie Hylton on 12-19-2023 MCV (RBC) [Entitic vol] 93.2 fL Normal 80-100 [facility] Comment on above: Performed By: #### C 3, CH50, C4 #### [facility] , #### ESR, CMP, CBC, ADDONUAPLUS #### [address] Neutrophils [#/volume] in Bl ood by Automated countOrdered By: Obie Hylton on 12-19-2023 Neutrophils (Bld) [#/Vol] 4.1 10*3/uL Normal 1.8-7.7 [facility] Comment on above: Performed By: #### C 3, CH50, C4 #### [facility] , #### ESR, CMP, CBC, ADDONUAPLUS #### [address] Nitrite Test strip Ql (U)Ord ered By: Obie Hylton on 12-19-2023 Nitrite Ql (U) Negative Negative [facility] No Panel InformationOrdered By: Obie Hylton on 12-19-2023 Estimated GFR (CKD-EPI) 47.958 mL/Min [facility] Creatinine Clearance (Chem N/A [facility] Nucleated erythrocytes [Pres ence] in Blood by Automated countOrdered By: Obie Hylton on 12-19-2023 Nucleated RBC Auto Ql (Bld) 0.2 /100{WBC} 0-0.5 [facility] Platelet mean volume [Entiti c volume] in Blood by Automated countOrdered By: Obie Hylton on 12-19-2023 Platelet mean volume (Bld) [Entitic vol] 8.7 fL Normal 6.3-10.7 [facility] Comment on above: Performed By: #### C 3, CH50, C4 #### [facility] , #### ESR, CMP, CBC, ADDONUAPLUS #### [address] Platelets [#/volume] in Bloo d by Automated countOrdered By: Obie Hylton on 12-19-2023 Platelets (Bld) [#/Vol] 201 10*3/uL Normal 150-450 [facility] Comment on above: Performed By: #### C 3, CH50, C4 #### [facility] , #### ESR, CMP, CBC, ADDONUAPLUS #### [address] Potassium [Moles/volume] in Serum or PlasmaOrdered By: Obie Hylton on 12-19-2023 Potassium [Moles/Vol] 4.3 mmol/L Normal 3.5-5.1 [facility] Comment on above: Performed By: #### C 3, CH50, C4 #### [facility] , #### ESR, CMP, CBC, ADDONUAPLUS #### [address] Protein Test strip (U) [Mass /Vol]Ordered By: Obie Hylton on 12-19-2023 Protein (U) [Mass/Vol] Negative Negative [facility] Protein [Mass/volume] in Ser um or PlasmaOrdered By: Obie Hylton on 12-19-2023 Protein [Mass/Vol] 5.9 g/dL Low 6.4-8.9 [facility] Comment on above: Performed By: #### C 3, CH50, C4 #### [facility] , #### ESR, CMP, CBC, ADDONUAPLUS #### [address] Serum globulin measurement b y calculation (mass/volume)Ordered By: Obie Hylton on 12-19-2023 Globulin (S) [Mass/Vol] 2.0 g/dL [facility] Comment on above: Performed By: #### C 3, CH50, C4 #### [facility] , #### ESR, CMP, CBC, ADDONUAPLUS #### [address] Serum or plasma albumin/glob ulin mass ratioOrdered By: Obie Hylton on 12-19-2023 Albumin/Globulin [Mass ratio] 2.0 {ratio} [facility] Comment on above: Performed By: #### C 3, CH50, C4 #### [facility] , #### ESR, CMP, CBC, ADDONUAPLUS #### [address] Serum or plasma anion gap de terminationOrdered By: Obie Hylton on 12-19-2023 Anion gap [Moles/Vol] 9.3 mmol/L Normal 6.0-15.0 [facility] Comment on above: Performed By: #### C 3, CH50, C4 #### [facility] , #### ESR, CMP, CBC, ADDONUAPLUS #### [address] Sodium [Moles/volume] in Ser um or PlasmaOrdered By: Obie Hylton on 12-19-2023 Sodium [Moles/Vol] 139 mmol/L Normal 136-145 [facility] Comment on above: Performed By: #### C 3, CH50, C4 #### [facility] , #### ESR, CMP, CBC, ADDONUAPLUS #### [address] Specific gravity Test strip (U) [Rel density]Ordered By: Obie Hylton on 12-19-2023 Specific gravity (U) [Rel density] 1.020 1.001-1.03 0 [facility] Urea nitrogen [Mass/volume] in Serum or PlasmaOrdered By: Obie Ramirezrow on 12-19-2023 Urea nitrogen [Mass/Vol] 33 mg/dL High 7-25 [facility] Comment on above: Performed By: #### C 3, CH50, C4 #### [facility] , #### ESR, CMP, CBC, ADDONUAPLUS #### [facility] [address] [place] [address] Urine appearanceOrdered By: Obie Ramirezrow on 12-19-2023 Appearance (U) Clear Normal Clear [facility] Comment on above: Order Comment: Name Collection Type:: Clean-Voided Midstream Performed By: #### C 3, CH50, C4 #### [facility] , #### ESR, CMP, CBC, ADDONUAPLUS #### [address] Urobilinogen Test strip (U) [Mass/Vol]Ordered By: Obieradha Hylton on 12-19-2023 Urobilinogen (U) [Mass/Vol] Normal mg/dL Normal [facility] pH of Urine by Test stripOrd ered By: Obie Ramirezrow on 12-19-2023 pH (U) 5.5 [pH] Normal 5.0-9.0 [facility] Comment on above: Order Comment: Name Collection Type:: Clean-Voided Midstream Performed By: #### C 3, CH50, C4 #### [facility] , #### ESR, CMP, CBC, ADDONUAPLUS #### [address] Basic Metabolic Profon 12-11 Anion gap [Moles/Vol] 11 mmol/L Normal 03-17 [facility] Comment on above: Performed By: #### B MP, TROPI, CBC, TSH #### [facility] [address] [place] [address] Train Gateman: Angelito Muir MD BUN/CRE Ratio 19 Normal 03-20 [facility] Comment on above: Performed By: #### B MP, TROPI, CBC, TSH #### [facility] [address] [place] [address] Train Gateman: Angelito Muir MD Calcium [Mass/Vol] 9.1 mg/dL Normal 8.6-10.4 [facility] Comment on above: Performed By: #### B MP, TROPI, CBC, TSH #### [facility] [address] [place] [address] Train Gateman: Angelito Muir MD Chloride [Moles/Vol] 104 mmol/L Normal 98-107 [facility] Comment on above: Performed By: #### B MP, TROPI, CBC, TSH #### [facility] [address] [place] [address] Train Gateman: Angelito Muir MD CO2 [Moles/Vol] 22 mmol/L Normal 20-31 [facility] Comment on above: Performed By: #### B MP, TROPI, CBC, TSH #### [facility] [address] [place] [address] Train Gateman: Angeliot Muir MD Creatinine [Mass/Vol] 1.3 mg/dL High 0.5-0.9 [facility] Comment on above: Performed By: #### B MP, TROPI, CBC, TSH #### [facility] [address] [place] [address] Train Gateman: Angelito Muir MD GFR/1.73 sq M.predicted among non-blacks MDRD (S/P/Bld) [Vol rate/Area] 42 mL/min/{1.73_m2} Low >60 [facility] Comment on above: Result Comment: These results are not intended for use in patients <18 years of age. eGFR results are calculated without a race factor using the 2020 CKD-EPI equation. Careful clinical correlation is recommended, particularly when comparing to results calculated using previous equations. The CKD-EPI equation is less accurate in patients with extremes of muscle mass, extra-renal metabolism of creatine, excessive creatine ingestion, or following therapy that affects renal tubular secretion. Performed By: #### B MAIDA TROPI, CBC, TSH #### [facility] [address] [place], [place] [id number] Train Gateman: Angelito Muir MD Glucose [Mass/Vol] 88 mg/dL Normal 70-99 [facility] Comment on above: Performed By: #### B MAIDA TROPI, CBC, TSH #### [facility] [address] [place], [place] [phone] Train Gateman: Angelito Muir MD Potassium [Moles/Vol] 4.3 mmol/L Normal 3.7-5.3 [facility] Comment on above: Performed By: #### B MAIDA TROPI, CBC, TSH #### [facility] [address] [place], [place] [phone] Train Gateman: Angelito Muir MD Sodium [Moles/Vol] 137 mmol/L Normal 135-144 [facility] Comment on above: Performed By: #### B MAIDA TROPI, CBC, TSH #### [facility] [address] [place], [place] [id number] Train Gateman: Angelito Muir MD Urea nitrogen [Mass/Vol] 25 mg/dL High 8-23 [facility] Comment on above: Performed By: #### B MAIDA TROPI, CBC, TSH #### [facility] [address] [place], [place] [phone] Train Gateman: Angelito Muir MD Basic Metabolic Panelon 05-1 Anion gap [Moles/Vol] 13 mmol/L 9 - 17 mmol/L [facility] Calcium [Mass/Vol] 9.1 mg/dL 8.6 - 10. 4 mg/dL [facility] Chloride [Moles/Vol] 104 mmol/L 98 - 10 7 mmol/L [facility] CO2 [Moles/Vol] 20 mmol/L 20 - 31 mmol/L [facility] Creatinine [Mass/Vol] 1.1 mg/dL High 0.5 - 0.9 mg/dL [facility] Bill Chao Filt Rate 51 Low - [facility] Comment on above: These results are not intended for use in patients <18 years of age. eGFR results are calculated without a race factor using the 2020 CKD-EPI equation. Careful clinical correlation is recommended, particularly when comparing to results calculated using previous equations. The CKD-EPI equation is less accurate in patients with extremes of muscle mass, extra-renal metabolism of creatine, excessive creatine ingestion, or following therapy that affects renal tubular secretion. Glucose [Mass/Vol] 153 mg/dL High 70 - 99 mg/dL [facility] Interpretation and review of laboratory results Abnormal [facility] Potassium [Moles/Vol] 3.3 mmol/L Low 3.7 - 5.3 mmol/L [facility] Sodium [Moles/Vol] 137 mmol/L 135 - 144 mmol/L [facility] Urea nitrogen [Mass/Vol] 26 mg/dL High 8 - 23 mg/dL [facility] Urea nitrogen/Creatinine [Mass ratio] 24 mg/mg High - [facility] Basic Metabolic Profon 11-13 Anion gap [Moles/Vol] 13 mmol/L Normal - [facility] Comment on above: Performed By: #### B MP, TROPI, CBC, TSH #### [facility] [address] [place] [address] Train Gateman: Angelito Muir MD BUN/CRE Ratio 24 High - [facility] Comment on above: Performed By: #### B MP, TROPI, CBC, TSH #### [facility] [address] [place] [address] Train Gateman: Angelito Muir MD Calcium [Mass/Vol] 9.1 mg/dL Normal 8.6-10.4 [facility] Comment on above: Performed By: #### B MP, TROPI, CBC, TSH #### [facility] [address] [place], [place] [phone] Train Gateman: Angelito Muir MD Chloride [Moles/Vol] 104 mmol/L Normal 98-107 [facility] Comment on above: Performed By: #### B MP, TROPI, CBC, TSH #### [facility] [address] [place] [address] Train Gateman: Angelito Muir MD CO2 [Moles/Vol] 20 mmol/L Normal 20-31 [facility] Comment on above: Performed By: #### B MP, TROPI, CBC, TSH #### [facility] [address] [place] [address] Train Gateman: Angelito Muir MD Creatinine [Mass/Vol] 1.1 mg/dL High 0.5-0.9 [facility] Comment on above: Performed By: #### B MP, TROPI, CBC, TSH #### [facility] [address] [place] [address] Train Gateman: Angelito Muir MD GFR/1.73 sq M.predicted among non-blacks MDRD (S/P/Bld) [Vol rate/Area] 51 mL/min/{1.73_m2} Low >60 [facility] Comment on above: Result Comment: These results are not intended for use in patients <18 years of age. eGFR results are calculated without a race factor using the 2020 CKD-EPI equation. Careful clinical correlation is recommended, particularly when comparing to results calculated using previous equations. The CKD-EPI equation is less accurate in patients with extremes of muscle mass, extra-renal metabolism of creatine, excessive creatine ingestion, or following therapy that affects renal tubular secretion. Performed By: #### B MP, TROPI, CBC, TSH #### [facility] [address] [place] [address] Train Gateman: Angelito Muir MD Glucose [Mass/Vol] 153 mg/dL High 70-99 [facility] Comment on above: Performed By: #### B MP, TROPI, CBC, TSH #### [facility] [address] [place] [address] Train Gateman: Angelito Muir MD Potassium [Moles/Vol] 3.3 mmol/L Low 3.7-5.3 [facility] Comment on above: Performed By: #### B MP, TROPI, CBC, TSH #### [facility] [address] [place] [address] Train Gateman: Angelito Muir MD Sodium [Moles/Vol] 137 mmol/L Normal 135-144 [facility] Comment on above: Performed By: #### B MP, TROPI, CBC, TSH #### [facility] [address] [place] [address] Train Gateman: Angelito Muir MD Urea nitrogen [Mass/Vol] 26 mg/dL High 8-23 [facility] Comment on above: Performed By: #### B MP, TROPI, CBC, TSH #### [facility] [address] [place] [address] Train Gateman: Angelito Muir MD [facility] 11-14-2023 Erythrocyte distribution width (RBC) [Ratio] 14.7 % 12.1 - 15.2 % [facility] Hematocrit (Bld) [Volume fraction] 37.0 % 36.0 - 46.0 % [facility] Hemoglobin (Bld) [Mass/Vol] 12.2 g/dL 12.0 - 16.0 g/dL [facility] Interpretation and review of laboratory results Abnormal [facility] MCH (RBC) [Entitic mass] 31.1 pg 26.0 - 34.[address] [facility] MCHC (RBC) [Mass/Vol] 33.0 g/dL 31.0 - 37.0 g/dL [facility] MCV (RBC) [Entitic vol] 94.4 fL 80.0 - 100.[address] [facility] Platelet mean volume (Bld) [Entitic vol] 10.3 fL 6.0 - 12.[address] [facility] Platelets (Bld) [#/Vol] 179 10*3/uL [facility] RBC (Bld) [#/Vol] 3.92 10*6/uL Low 4.00 - 5.20 m/uL [facility] WBC other (Bld) [#/Vol] 4.3 [facility] Erythrocyte distribution width (RBC) [Ratio] 14.7 % Normal 12.1-15.2 [facility] Comment on above: Performed By: #### B MP, TROPI, CBC, TSH #### [facility] [address] [place] [address] Train Gateman: Angelito Muir MD Hematocrit (Bld) [Volume fraction] 37.0 % Normal 36.0-46.0 [facility] Comment on above: Performed By: #### B MP, TROPI, CBC, TSH #### [facility] [address] [place] [address] Train Gateman: Angelito Muir MD Hemoglobin (Bld) [Mass/Vol] 12.2 g/dL Normal 12.0-16.0 [facility] Comment on above: Performed By: #### B MP, TROPI, CBC, TSH #### [facility] [address] [place] [address] Train Gateman: Angelito Muir MD MCH (RBC) [Entitic mass] 31.1 pg Normal 26.0-34.0 [facility] Comment on above: Performed By: #### B MP, TROPI, CBC, TSH #### [facility] [address] [place] [address] Train Gateman: Angelito Muir MD MCHC (RBC) [Mass/Vol] 33.0 g/dL Normal 31.0-37.0 [facility] Comment on above: Performed By: #### B MP, TROPI, CBC, TSH #### [facility] [address] [place] [address] [phone] Train Gateman: Angelito Muir MD MCV (RBC) [Entitic vol] 94.4 fL Normal 80.0-100.0 [facility] Comment on above: Performed By: #### B MP, TROPI, CBC, TSH #### [facility] [address] [place] [address] [phone] Train Gateman: Angelito Muir MD Platelet mean volume (Bld) [Entitic vol] 10.3 fL Normal 6.0-12.0 [facility] Comment on above: Performed By: #### B MP, TROPI, CBC, TSH #### [facility] [address] [place] [address] [phone] Train Gateman: Angelito Muir MD Platelets (Bld) [#/Vol] 179 10*3/uL Normal 140-450 [facility] Comment on above: Performed By: #### B MP, TROPI, CBC, TSH #### [facility] [address] [place] [address] [phone] Train Gateman: Angelito Muir MD RBC (Bld) [#/Vol] 3.92 10*6/uL Low 4.00-5.20 [facility] Comment on above: Performed By: #### B MP, TROPI, CBC, TSH #### [facility] [address] [place] [address] [phone] Train Gateman: Angelito Muir MD WBC (Bld) [#/Vol] 4.3 10*3/uL Normal 3.5-11.0 [facility] Comment on above: Performed By: #### B MP, TROPI, CBC, TSH #### [facility] [address] [place] [address] [phone] Train Gateman: Angelito Muir MD No Panel Informationon 11-[address] [facility] TSHon 11-14-2023 TSH Qn 1.80 m[IU]/L [facility] Thyroid Stim. Horm.on 2023 Thyroid Stim. Horm. 1.80 uIU/mL Normal 0.30-5.00 [facility] Comment on above: Performed By: #### B MP, TROPI, CBC, TSH #### [facility] [address] [place] [address] Train Gateman: Angelito Muir MD Troponinon 11-14-2023 Troponin I.cardiac High sensitivity method [Mass/Vol] 10 ng/L 0 - 14 ng/L [facility] Comment on above: High Sensitivity Tro ponin values cannot be compared with other Troponin methodologies. Troponin, High Sens 10 ng/L Normal 0-14 [facility] Comment on above: Result Comment: High Sensitivity Troponin values cannot be compared with other Troponin methodologies. Performed By: #### B MP, TROPI, CBC, TSH #### [facility] [address] [place] [address] Train Gateman: Angelito Muir MD CBC with Auto Differentialon 10-23-2023 Absolute Bands 0.18 [facility] Bands 4 % 0 - 10 % [facility] Basophils (Bld) [#/Vol] [facility] Basophils/100 WBC (Bld) 0 - 2 % [facility] Eosinophils % 0 - 5 % [facility] Eosinophils (Bld) [#/Vol] [facility] Erythrocyte distribution width (RBC) [Ratio] 14.7 % 12.1 - 15.2 % [facility] Hematocrit (Bld) [Volume fraction] 39.4 % 36.0 - 46.0 % [facility] Hemoglobin (Bld) [Mass/Vol] 12.9 g/dL 12.0 - 16.0 g/dL [facility] Immature granulocytes (Bld) [#/Vol] [facility] Immature granulocytes/100 WBC (Bld) 0 % [facility] Interpretation and review of laboratory results Abnormal [facility] Lymphocytes/100 WBC (Bld) 5 % Low 15 - 40 % [facility] Lymphocytes/100 WBC (Bld) 0.23 % Low [facility] MCH (RBC) [Entitic mass] 30.6 pg 26.0 - 34.[address] [facility] MCHC (RBC) [Mass/Vol] 32.7 g/dL 31.0 - 37.0 g/dL [facility] MCV (RBC) [Entitic vol] 93.4 fL 80.0 - 100.[address] [facility] Monocytes/100 WBC (Bld) 6 % 4 - 8 % [facility] Monocytes/100 WBC (Bld) 0.27 % [facility] Morphology Igor (Bld) [Interp] Platelet morphology normal. [facility] Morphology Igor (Bld) [Interp] RBC morphology normal. [facility] Morphology Igor (Bld) [Interp] Manual Differential Performed [facility] Neutrophils/100 WBC (Bld) 85 % High 47 - 75 % [facility] Platelet mean volume (Bld) [Entitic vol] 9.4 fL 6.0 - 12.[address] [facility] Platelets (Bld) [#/Vol] 152 10*3/uL [facility] RBC (Bld) [#/Vol] 4.22 10*6/uL 4.00 - 5.20 m/uL [facility] Segmented neutrophils/100 WBC (Bld) 3.82 % [facility] WBC other (Bld) [#/Vol] 4.5 [facility] CBC with Diffon 10-23-2023 Abs. Bands 0.18 k/uL Normal 0.0-1.0 [facility] Comment on above: Performed By: #### B MP, TROPI, CBC, TSH #### [facility] [address] [place] [address] Train Gateman: Angelito Muir MD Abs. Basophil Normal 0.0-0.2 [facility] Comment on above: Performed By: #### B MP, TROPI, CBC, TSH #### [facility] [address] [place], [place] [phone] Train Gateman: Angelito Muir MD Abs. Eosinophil Normal 0.0-0.4 [facility] Comment on above: Performed By: #### B MP, TROPI, CBC, TSH #### [facility] [address] [place], [place] [phone] Train Gateman: Angelito Muir MD Abs.Imm.Granulocyte Normal 0.00-0.30 [facility] Comment on above: Performed By: #### B MP, TROPI, CBC, TSH #### [facility] [address] [place] [phone] Train Gateman: Angelito Muir MD Abs.Neutrophil (Seg) 3.82 k/uL Normal 2.5-7.0 [facility] Comment on above: Performed By: #### B MP, TROPI, CBC, TSH #### [facility] [address] [place] [address] Train Gateman: Angelito Muir MD Bands 4 % Normal 0-10 [facility] Comment on above: Performed By: #### B MP, TROPI, CBC, TSH #### [facility] [address] [place] [phone] Train Gateman: Angelito Muir MD Basophil Normal 0-2 [facility] Comment on above: Performed By: #### B MP, TROPI, CBC, TSH #### [facility] [address] [place] [phone] Train Gateman: Angelito Muir MD Eosinophil Normal 0-5 [facility] Comment on above: Performed By: #### B MP, TROPI, CBC, TSH #### [facility] [address] [place] [phone] Train Gateman: Angelito Muir MD Immature Granulocyte Normal 0 [facility] Comment on above: Performed By: #### B MP, TROPI, CBC, TSH #### [facility] [address] [place], [place] [phone] Train Gateman: Angelito Muir MD Lymphocytes (Bld) [#/Vol] 0.23 10*3/uL Low 1.0-4.8 [facility] Comment on above: Performed By: #### B MP, TROPI, CBC, TSH #### [facility] [address] [place] [address] Train Gateman: Angelito Muir MD Lymphocytes/100 WBC (Bld) 5 % Low 15-40 [facility] Comment on above: Performed By: #### B MP, TROPI, CBC, TSH #### [facility] [address] [place] [address] Train Gateman: Angelito Muir MD Monocytes (Bld) [#/Vol] 0.27 10*3/uL Normal 0.0-1.0 [facility] Comment on above: Performed By: #### B MP, TROPI, CBC, TSH #### [facility] [address] [place] [address] [phone]) Train Gateman: Angelito Muir MD Monocytes/100 WBC (Bld) 6 % Normal 4-8 [facility] Comment on above: Performed By: #### B MP, TROPI, CBC, TSH #### [facility] [address] [place], [place] [phone] Train Gateman: Angelito Muir MD Morphology Igor (Bld) [Interp] Platelet morphology normal. Normal [facility] Comment on above: Result Comment: RBC morphology normal. Manual Differential Performed Performed By: #### B MP, TROPI, CBC, TSH #### [facility] [address] [place], [place] [phone] Train Gateman: Angelito Muir MD Neutrophil (Seg) 85 % High 47-75 [facility] Comment on above: Performed By: #### B MP, TROPI, CBC, TSH #### [facility] [address] [place] [phone] Train Gateman: Angelito Muir MD Erythrocyte distribution width (RBC) [Ratio] 14.7 % Normal 12.1-15.2 [facility] Comment on above: Performed By: #### B MP, TROPI, CBC, TSH #### [facility] [address] [place] [phone] Train Gateman: Angelito Muir MD Hematocrit (Bld) [Volume fraction] 39.4 % Normal 36.0-46.0 [facility] Comment on above: Performed By: #### B MP, TROPI, CBC, TSH #### [facility] [address] [place] [address] Train Gateman: Angelito Muir MD Hemoglobin (Bld) [Mass/Vol] 12.9 g/dL Normal 12.0-16.0 [facility] Comment on above: Performed By: #### B MP, TROPI, CBC, TSH #### [facility] [address] [place] [phone] Train Gateman: Angelito Muir MD MCH (RBC) [Entitic mass] 30.6 pg Normal 26.0-34.0 [facility] Comment on above: Performed By: #### B MP, TROPI, CBC, TSH #### [facility] [address] [place] [phone] Train Gateman: Angelito Muir MD MCHC (RBC) [Mass/Vol] 32.7 g/dL Normal 31.0-37.0 [facility] Comment on above: Performed By: #### B MP, TROPI, CBC, TSH #### [facility] [address] [place] [phone] Train Gateman: Angelito Muir MD MCV (RBC) [Entitic vol] 93.4 fL Normal 80.0-100.0 [facility] Comment on above: Performed By: #### B MP, TROPI, CBC, TSH #### [facility] [address] [place], [place] [phone] Train Gateman: Angelito Muir MD Platelet mean volume (Bld) [Entitic vol] 9.4 fL Normal 6.0-12.0 [facility] Comment on above: Performed By: #### B MP, TROPI, CBC, TSH #### [facility] [address] [place], [place] [phone] Train Gateman: Angelito Muir MD Platelets (Bld) [#/Vol] 152 10*3/uL Normal 140-450 [facility] Comment on above: Performed By: #### B MP, TROPI, CBC, TSH #### [facility] [address] [place], [place] [phone] Train Gateman: Angelito Muir MD RBC (Bld) [#/Vol] 4.22 10*6/uL Normal 4.00-5.20 [facility] Comment on above: Performed By: #### B MP, TROPI, CBC, TSH #### [facility] [address] [place] [address] Train Gateman: Angelito Muir MD WBC (Bld) [#/Vol] 4.5 10*3/uL Normal 3.5-11.0 [facility] Comment on above: Performed By: #### B MP, TROPI, CBC, TSH #### [facility] [address] [place], [place] [phone] Train Gateman: Angelito Muir MD Comp Metabolic Profon 2023 Albumin [Mass/Vol] 3.9 g/dL Normal 3.5-5.2 [facility] Comment on above: Performed By: #### B MP, TROPI, CBC, TSH #### [facility] [address] [place] [address] Train Gateman: Angelito Muir MD Alkaline Phos 49 U/L Normal 35-104 [facility] Comment on above: Performed By: #### B MP, TROPI, CBC, TSH #### [facility] [address] [place], [place] [phone] Train Gateman: Angelito Muir MD ALT [Catalytic activity/Vol] 12 U/L Normal 5-33 [facility] Comment on above: Performed By: #### B MP, TROPI, CBC, TSH #### [facility] [address] [place], [place] [phone] Train Gateman: Angelito Muir MD Anion gap [Moles/Vol] 15 mmol/L Normal 9-17 [facility] Comment on above: Performed By: #### B MP, TROPI, CBC, TSH #### [facility] [address] [place], [place] [phone] Train Gateman: Angelito Muir MD AST [Catalytic activity/Vol] 15 U/L Normal <32 [facility] Comment on above: Performed By: #### B MP, TROPI, CBC, TSH #### [facility] [address] [place], [place] [phone] Train Gateman: Angelito Muir MD Bilirubin [Mass/Vol] 0.4 mg/dL Normal 0.3-1.2 [facility] Comment on above: Performed By: #### B MP, TROPI, CBC, TSH #### [facility] [address], [place] [id number] Train Gateman: Angelito Muir MD BUN/CRE Ratio 29 High 9-20 [facility] Comment on above: Performed By: #### B MP, TROPI, CBC, TSH #### [facility] [address], [place] [id number] Train Gateman: Angelito Muir MD Calcium [Mass/Vol] 8.9 mg/dL Normal 8.6-10.4 [facility] Comment on above: Performed By: #### B MP, TROPI, CBC, TSH #### [facility] [address] [place] [address] Train Gateman: Angelito Muir MD Chloride [Moles/Vol] 107 mmol/L Normal 98-107 [facility] Comment on above: Performed By: #### B MP, TROPI, CBC, TSH #### [facility] [address] [place] [address] Train Gateman: Angelito Muir MD CO2 [Moles/Vol] 17 mmol/L Low 20-31 [facility] Comment on above: Performed By: #### B MP, TROPI, CBC, TSH #### [facility] [address] [place] [address] Train Gateman: Angelito Muir MD Creatinine [Mass/Vol] 1.1 mg/dL High 0.5-0.9 [facility] Comment on above: Performed By: #### B MP, TROPI, CBC, TSH #### [facility] [address] [place] [address] Train Gateman: Angelito Muir MD GFR/1.73 sq M.predicted among non-blacks MDRD (S/P/Bld) [Vol rate/Area] 51 mL/min/{1.73_m2} Low >60 [facility] Comment on above: Result Comment: These results are not intended for use in patients <18 years of age. eGFR results are calculated without a race factor using the 2020 CKD-EPI equation. Careful clinical correlation is recommended, particularly when comparing to results calculated using previous equations. The CKD-EPI equation is less accurate in patients with extremes of muscle mass, extra-renal metabolism of creatine, excessive creatine ingestion, or following therapy that affects renal tubular secretion. Performed By: #### B MP, TROPI, CBC, TSH #### [facility] [address] [place] [address] Train Gateman: Angelito Muir MD Glucose [Mass/Vol] 136 mg/dL High 70-99 [facility] Comment on above: Performed By: #### B MP, TROPI, CBC, TSH #### [facility] [address] [place] [address] Train Gateman: Angelito Muir MD Potassium [Moles/Vol] 3.6 mmol/L Low 3.7-5.3 [facility] Comment on above: Performed By: #### B MP, TROPI, CBC, TSH #### [facility] [address] [place] [address] Train Gateman: Angelito Muir MD Protein [Mass/Vol] 6.6 g/dL Normal 6.4-8.3 [facility] Comment on above: Performed By: #### B MP, TROPI, CBC, TSH #### [facility] [address] [place] [address] Train Gateman: Angelito Muir MD Sodium [Moles/Vol] 139 mmol/L Normal 135-144 [facility] Comment on above: Performed By: #### B MP, TROPI, CBC, TSH #### [facility] [address] [place] [address] Train Gateman: Angelito Muir MD Urea nitrogen [Mass/Vol] 32 mg/dL High 8-23 [facility] Comment on above: Performed By: #### B MP, TROPI, CBC, TSH #### [facility] [address] [place] [address] Train Gateman: Angelito Muir MD Comprehensive Metabolic Pane trevor 10-23-2023 Albumin [Mass/Vol] 3.9 g/dL 3.5 - 5.2 g/dL [facility] ALP [Catalytic activity/Vol] 49 U/L 35 - 104 U/L [facility] ALT [Catalytic activity/Vol] 12 U/L 5 - 33 U/L [facility] Anion gap [Moles/Vol] 15 mmol/L 9 - 17 mmol/L [facility] AST [Catalytic activity/Vol] 15 U/L NINF - 32 U/L [facility] Bilirubin [Mass/Vol] 0.4 mg/dL 0.3 - 1 .2 mg/dL [facility] Calcium [Mass/Vol] 8.9 mg/dL 8.6 - 10. 4 mg/dL [facility] Chloride [Moles/Vol] 107 mmol/L 98 - 10 7 mmol/L [facility] CO2 [Moles/Vol] 17 mmol/L Low 20 - 31 mmol/L [facility] Creatinine [Mass/Vol] 1.1 mg/dL High 0.5 - 0.9 mg/dL [facility] GFR/1.73 sq M.predicted MDRD (S/P/Bld) [Vol rate/Area] 51 mL/min/{1.73_m2} Low - PINF [facility] Comment on above: These results are not intended for use in patients <18 years of age. eGFR results are calculated without a race factor using the 2020 CKD-EPI equation. Careful clinical correlation is recommended, particularly when comparing to results calculated using previous equations. The CKD-EPI equation is less accurate in patients with extremes of muscle mass, extra-renal metabolism of creatine, excessive creatine ingestion, or following therapy that affects renal tubular secretion. Glucose [Mass/Vol] 136 mg/dL High 70 - 99 mg/dL [facility] Interpretation and review of laboratory results Abnormal [facility] Potassium [Moles/Vol] 3.6 mmol/L Low 3.7 - 5.3 mmol/L [facility] Protein [Mass/Vol] 6.6 g/dL 6.4 - 8.3 g/dL [facility] Sodium [Moles/Vol] 139 mmol/L 135 - 144 mmol/L [facility] Urea nitrogen [Mass/Vol] 32 mg/dL High 8 - 23 mg/dL [facility] Urea nitrogen/Creatinine [Mass ratio] 29 mg/mg High 9 - 20 [facility] Microscopic Urinalysison - [facility] Bacteria LM Ql (Urine sed) RARE Abnormal None [facility] Epithelial cells LM.HPF (Urine sed) [#/Area] 5 TO 10 /HPF [facility] Interpretation and review of laboratory results Abnormal [facility] RBC LM.HPF (Urine sed) [#/Area] 2 TO [address] [facility] WBC LM.HPF (Urine sed) [#/Area] NONE SEEN 0 /HPF [facility] Troponinon 10-23-2023 Interpretation and review of laboratory results Abnormal [facility] Troponin I.cardiac High sensitivity method [Mass/Vol] 19 ng/L High 0 - 14 ng/L [facility] Comment on above: High Sensitivity Tro ponin values cannot be compared with other Troponin methodologies. [facility] Troponin, High Sens 19 ng/L High 0-14 [facility] Comment on above: Result Comment: High Sensitivity Troponin values cannot be compared with other Troponin methodologies. Performed By: #### B MP, TROPI, CBC, TSH #### [facility] [address] [place] [address] Train Gateman: Angelito Muir MD Interpretation and review of laboratory results Abnormal [facility] Troponin I.cardiac High sensitivity method [Mass/Vol] 15 ng/L High 0 - 14 ng/L [facility] Comment on above: High Sensitivity Tro ponin values cannot be compared with other Troponin methodologies. [facility] Troponin, High Sens 15 ng/L High 014 [facility] Comment on above: Result Comment: High Sensitivity Troponin values cannot be compared with other Troponin methodologies. Performed By: #### B MP, TROPI, CBC, TSH #### [facility] [address] [facility] [place] [address] Train Gateman: Angelito Muir MD UA w/Reflex Cultureon 2023 Bilirubin, SemiQt,Ur Negative Normal NEG [facility] Comment on above: Performed By: #### B MP, TROPI, CBC, TSH #### [facility] [address] [place] [address] Train Gateman: Angelito Muir MD Blood, Urine 2+ Abnormal NEG [facility] Comment on above: Performed By: #### B MP, TROPI, CBC, TSH #### [facility] [address] [place] [address] Train Gateman: Angelito Muir MD Clarity (U) Clear Normal CLEAR [facility] Comment on above: Performed By: #### B MP, TROPI, CBC, TSH #### [facility] [address] [place] [address] Train Gateman: Angelito Muir MD Color (U) Yellow Normal YEL [facility] Comment on above: Performed By: #### B MP, TROPI, CBC, TSH #### [facility] [address] [place] [address] Train Gateman: Angelito Muir MD Comment Normal [facility] Comment on above: Performed By: #### B MP, TROPI, CBC, TSH #### [facility] [address] [place] [address] Train Gateman: Angelito Muir MD Glucose Ql (U) Negative Normal NEG [facility] Comment on above: Performed By: #### B MP, TROPI, CBC, TSH #### [facility] [address] [place] [address] Train Gateman: Angelito Muir MD Ketones Ql (U) TRACE Abnormal NEG [facility] Comment on above: Performed By: #### B MP, TROPI, CBC, TSH #### [facility] [address] [place] [address] Train Gateman: Angelito Muir MD Leukocyte esterase Test strip Ql (U) Negative Normal NEG [facility] Comment on above: Performed By: #### B MP, TROPI, CBC, TSH #### [facility] [address] [place] [address] Train Gateman: Angelito Muir MD Nitrite,Ur Negative Normal NEG [facility] Comment on above: Performed By: #### B MP, TROPI, CBC, TSH #### [facility] [address] [place] [address] Train Gateman: Angelito Muir MD PH,Ur 5.0 Normal 5.0-8.0 [facility] Comment on above: Performed By: #### B MP, TROPI, CBC, TSH #### [facility] [address] [place] [address] Train Gateman: Angelito Muir MD Protein Ql (U) 1+ mg/dL Abnormal NEG [facility] Comment on above: Performed By: #### B MP, TROPI, CBC, TSH #### [facility] [address] [place] [address] Train Gateman: Angelito Muir MD Spec. [place],Ur 1.020 Normal 1.005-1.03 0 [facility] Comment on above: Performed By: #### B MP, TROPI, CBC, TSH #### [facility] [address] [place] [id number] Train Gateman: Angelito Muir MD Urobilinogen,Ur Normal Normal 0.0-1.0 [facility] Comment on above: Performed By: #### B MP, TROPI, CBC, TSH #### [facility] [address] [place] [address] Train Gateman: Angelito Muir MD Urinalysis with Reflex to Cu ltureon 10-23-2023 Bilirubin Ql (U) Negative NEGATIVE [facility] Clarity (U) Clear Clear [facility] Color (U) Yellow Yellow [facility] Comment [facility] Glucose Test strip (U) [Mass/Vol] Negative NEGATIVE mg/dL [facility] Hemoglobin Auto test strip Ql (U) 2+ Abnormal NEGATIVE [facility] Interpretation and review of laboratory results Abnormal [facility] Ketones (U) [Mass/Vol] TRACE Abnormal NEGATIVE mg/dL [facility] Leukocyte esterase Test strip Ql (U) Negative NEGATIVE [facility] Nitrite Ql (U) Negative NEGATIVE [facility] pH (U) 5.0 [pH] 5.0 - 8.[address] [facility] Protein (U) [Mass/Vol] 1+ Abnormal NEGATIVE mg/dL [facility] Specific gravity (U) [Rel density] 1.020 1.005 - 1.[address] [facility] Urobilinogen Qn (U) Normal 0.0 - 1. 0 EU/dL [facility] Urinalysis,Microon 4 ----- Normal [facility] Comment on above: Performed By: #### B MP, TROPI, CBC, TSH #### [facility] [address] [place] [id number] Train Gateman: Angelito Muir MD Bacteria RARE Abnormal NONE [facility] Comment on above: Performed By: #### B MP, TROPI, CBC, TSH #### [facility] [address] [place] [address] Train Gateman: Angelito Muir MD Epithelial cells LM Ql (Urine sed) 5 TO 10 Normal [facility] Comment on above: Performed By: #### B MP, TROPI, CBC, TSH #### [facility] [address] [place] [id number] Train Gateman: Angelito Muir MD Urine RBC's 2 TO 5 Normal 0-2 [facility] Comment on above: Performed By: #### B MP, TROPI, CBC, TSH #### [facility] [address] [place] [address] Train Gateman: Angelito Muir MD Urine WBC's NONE SEEN Normal 0 [facility] Comment on above: Performed By: #### B MP, TROPI, CBC, TSH #### [facility] [address] [facility] [address] Train Gateman: Angelito Muir MD BUN + Creatinineon Creatinine [Mass/Vol] 1.2 mg/dL High 0.5-0.9 [facility] Comment on above: Performed By: #### B UNCRT #### [facility] [address] [place] [address] Train Gateman: Angelito Muir MD GFR/1.73 sq M.predicted among non-blacks MDRD (S/P/Bld) [Vol rate/Area] 46 mL/min/{1.73_m2} Low >60 [facility] Comment on above: Result Comment: These results are not intended for use in patients <18 years of age. eGFR results are calculated without a race factor using the 2020 CKD-EPI equation. Careful clinical correlation is recommended, particularly when comparing to results calculated using previous equations. The CKD-EPI equation is less accurate in patients with extremes of muscle mass, extra-renal metabolism of creatine, excessive creatine ingestion, or following therapy that affects renal tubular secretion. Performed By: #### B UNCRT #### [facility] [address] [place] [address] Train Gateman: Angelito Muir MD Urea nitrogen [Mass/Vol] 35 mg/dL High 02-20 [facility] Comment on above: Performed By: #### B UNCRT #### [facility] [address] [place] [address] Train Gateman: Angelito Muir MD CT UROGRAMon 10-22-2023 CT UROGRAM EXAM: CT UROGRAM HISTORY: Gross hematuria COMPARISON: CT abdomen and pelvis 08/22/2011. TECHNIQUE: CT examination of the with and without IV contrast. Coronal and sagittal reformations were performed. Split bolus postcontrast technique. Dose reduction techniques were achieved by using automated exposure control and/or adjustment of mA and/or kV according to patient size and/or use of iterative reconstruction technique. POSITIVES related to history: Renal sinus cyst right kidney is again seen, measuring 7 x 4 cm. Superior pole left renal cyst 4.3 cm diameter. No significant changes since 2011. NEGATIVES related to history: No urinary tract stones. No suspicious mass. COINCIDENTAL, unrelated to history: Cholecystectomy. Mild coronary artery calcifications. ROUTINE: No suspicious liver mass. Normal pancreas, spleen, adrenal glands. Plaque aorta, without aneurysm. Bladder contour normal allowing for the artifact from the left hip prosthesis. Age expected degenerative changes in the spine. Convex right thoracolumbar scoliosis. Lung bases clear. IMPRESSION: Known bilateral renal cysts. Otherwise negative. Interpreted by: Ishmael Valentin Jr., MD Signed by: Ishmael Valentin Jr., MD 10/22/23 Final result Normal [facility] Cult,Urineon 10-02-2023 Cult,Urine Specimen Description .CLEAN CATCH URINE Culture ESCHERICHIA COLI >100,000 CFU/ML Report Status FINAL 10/02/2023 SUSCEPTIBILITY Organism ESCHERICHIA COLI Method GRACE Ampicillin >=32 RESISTANT Cefazolin <=4 SUSCEPTIBLE Cefazolin sensitivity results can be used to predict the effectiveness of oral cephalosporins (eg. Cephalexin) in uncomplicated Urinary Tract Infections due to E. coli, K. pneumoniae, and P. mirabilis Ceftriaxone <=0.25 SUSCEPTIBLE ESBL NEGATIVE Gentamicin <=1 SUSCEPTIBLE Levofloxacin <=0.12 SUSCEPTIBLE Nitrofurantoin <=16 SUSCEPTIBLE Piperacillin/Tazobactam <=4 SUSCEPTIBLE Tobramycin <=1 SUSCEPTIBLE Trimethoprim/Sulfa <=20 SUSCEPTIBLE Susceptible [facility] Comment on above: Performed By: #### B MP, TROPI, CBC, TSH #### [facility] [address] [place] [address] Train Gateman: Angelito Muir MD Urinalysis w/ Microon 2023 ----- Normal [facility] Comment on above: Performed By: #### B MP, TROPI, CBC, TSH #### [facility] [address] [place] [address] Train Gateman: Angelito Muir MD Bacteria 2+ Abnormal NONE [facility] Comment on above: Performed By: #### B MP, TROPI, CBC, TSH #### [facility] [address] [place], [place] [id number] Train Gateman: Angelito Muir MD Bilirubin, SemiQt,Ur Negative Normal NEG [facility] Comment on above: Performed By: #### B MP, TROPI, CBC, TSH #### [facility] [address] [place] [address] Train Gateman: Angelito Muir MD Blood, Urine 2+ Abnormal NEG [facility] Comment on above: Performed By: #### B MP, TROPI, CBC, TSH #### [facility] [address] [place] [address] Train Gateman: Angelito Muir MD Clarity (U) Cloudy Abnormal CLEAR [facility] Comment on above: Performed By: #### B MP, TROPI, CBC, TSH #### [facility] [address] [place] [address] Train Gateman: Angelito Muir MD Color (U) Yellow Normal YEL [facility] Comment on above: Performed By: #### B MP, TROPI, CBC, TSH #### [facility] [address] [place], [place] [id number] Train Gateman: Angelito Muir MD Comment [facility] Comment on above: Performed By: #### B MP, TROPI, CBC, TSH #### [facility] [address] [place], [place] [id number] Train Gateman: Angelito Muir MD Epithelial cells LM Ql (Urine sed) 2 TO 5 Normal [facility] Comment on above: Performed By: #### B MP, TROPI, CBC, TSH #### [facility] [address] [place] [address] Train Gateman: Angelito Muir MD Glucose Ql (U) Negative Normal NEG [facility] Comment on above: Performed By: #### B MP, TROPI, CBC, TSH #### [facility] [address] [place] [id number] Train Gateman: Angelito Muir MD Ketones Ql (U) Negative Normal NEG [facility] Comment on above: Performed By: #### B MP, TROPI, CBC, TSH #### [facility] [address] [place] [address] Train Gateman: Angelito Muir MD Leukocyte esterase Test strip Ql (U) 3+ Abnormal NEG [facility] Comment on above: Performed By: #### B MP, TROPI, CBC, TSH #### [facility] [address] [place] [address] Train Gateman: Angelito Muir MD Nitrite,Ur Negative Normal NEG [facility] Comment on above: Performed By: #### B MP, TROPI, CBC, TSH #### [facility] [address] [place] [address] Train Gateman: Angelito Muir MD PH,Ur 6.5 Normal 5.0-8.0 [facility] Comment on above: Performed By: #### B MP, TROPI, CBC, TSH #### [facility] [address] [place] [address] Train Gateman: Angelito Muir MD Protein Ql (U) TRACE Abnormal NEG [facility] Comment on above: Performed By: #### B MP, TROPI, CBC, TSH #### [facility] [address] [place] [address] Train Gateman: Angelito Muir MD Spec. [place],Ur 1.010 Normal 1.005-1.03 0 [facility] Comment on above: Performed By: #### B MP, TROPI, CBC, TSH #### [facility] [address] [place] [address] Train Gateman: Angelito Muir MD Urine RBC's 10 TO 20 Normal 0-2 [facility] Comment on above: Performed By: #### B MP, TROPI, CBC, TSH #### [facility] [address] [place] [address] Train Gateman: Angelito Muir MD Urine WBC's 20 TO 50 Normal 0 [facility] Comment on above: Performed By: #### B MP, TROPI, CBC, TSH #### [facility] [address] [place] [address] Train Gateman: Angelito Muir MD Urobilinogen,Ur Normal Normal 0.0-1.0 [facility] Comment on above: Performed By: #### B MP, TROPI, CBC, TSH #### [facility] [address] [place] [address] Train Gateman: Angelito Muir MD IntraOperative Documentson 0 09-23-2023 Intra[employer]ative Documents [id number] Normal [facility] Result Letter Officeon 09-22 Result Letter Office (Inserted Image. Un able to display) September 23, 2023 MARY JANE [address]OS [address] [place] [address] : 1945 Below is a summary of the results of your recent colonoscopy. Your results have been sent to your primary care provider along with recommendations on when the procedure should be repeated. COLONOSCOPY WITH POLYP REMOVAL OR BIOPSY Type of polyp hyperplastic polyps x 3 - benign - not considered precancerous Based on your results no repeat recommended based on age at the time due Please contact the office with any further questions or concerns or if you wish to make an appointment. [facility] [phone] Normal [facility] Alanine aminotransferase [En zymatic activity/volume] in Serum or PlasmaOrdered By: Nuvia Sanchez on 09-19-2023 ALT [Catalytic activity/Vol] 12 U/L Normal 7-52 [facility] Comment on above: Performed By: #### C 3, CH50, C4 #### [facility] , #### ESR, CMP, CBC, ADDONUAPLUS #### [address] Albumin [Mass/volume] in Ser um or Plasma by Bromocresol green (BCG) dye binding methoOrdered By: Nuvia Sanchez on 09-19-2023 Albumin BCG dye [Mass/Vol] 3.9 g/dL 3.5-5.7 [facility] Alkaline phosphatase [Enzyma tic activity/volume] in Serum or PlasmaOrdered By: Nuvia Sanchez on 09-19-2023 ALP [Catalytic activity/Vol] 59 U/L Normal 34-104 [facility] Comment on above: Result Comment: PERF ORMED BY: [place] [address] PATHOLOGIST [employer]EEPER MANUEL PABON M.D. Performed By: #### C 3, CH50, C4 #### [facility] , #### ESR, CMP, CBC, ADDONUAPLUS #### [address] Aspartate aminotransferase [ Enzymatic activity/volume] in Serum or PlasmaOrdered By: Nuvia Sanchez on 09-19-2023 AST [Catalytic activity/Vol] 13 U/L Normal 13-39 [facility] Comment on above: Performed By: #### C 3, CH50, C4 #### [facility] , #### ESR, CMP, CBC, ADDONUAPLUS #### [address] Automated basophil %Ordered By: Nuvia Sanchez on 09-19-2023 Basophils/100 WBC (Bld) 0.3 % Normal . [facility] Comment on above: Performed By: #### C 3, CH50, C4 #### [facility] , #### ESR, CMP, CBC, ADDONUAPLUS #### [address] Automated basophil countOrde red By: Nuvia Sanchez on 09-19-2023 Basophils (Bld) [#/Vol] 0.0 10*3/uL Normal 0.0-0.2 [facility] Comment on above: Performed By: #### C 3, CH50, C4 #### [facility] , #### ESR, CMP, CBC, ADDONUAPLUS #### [address] Automated blood monocyte cou ntOrdered By: Nuvia Sanchez on 09-19-2023 Monocytes (Bld) [#/Vol] 0.6 10*3/uL Normal 0.0-0.8 [facility] Comment on above: Performed By: #### C 3, CH50, C4 #### [facility] , #### ESR, CMP, CBC, ADDONUAPLUS #### [address] Automated eosinophil %Ordere d By: Nuvia Sanchez on 09-19-2023 Eosinophils/100 WBC (Bld) 0.8 % Normal . [facility] Comment on above: Performed By: #### C 3, CH50, C4 #### [facility] , #### ESR, CMP, CBC, ADDONUAPLUS #### [address] Automated eosinophil countOr dered By: Nuvia Sanchez on 09-19-2023 Eosinophils (Bld) [#/Vol] 0.1 10*3/uL Normal 0.0-0.45 [facility] Comment on above: Performed By: #### C 3, CH50, C4 #### [facility] , #### ESR, CMP, CBC, ADDONUAPLUS #### [facility] [address] [place] [address] Automated erythrocytes count in urine sediment (number/area)Ordered By: Nuvia Sanchez on 09-19-2023 RBC Auto (Urine sed) [#/Area] 0-1 [HPF] 0-4 [facility] Automated leukocytes count i n urine sediment (number/area)Ordered By: Nuvia Sanchez on 09-19-2023 WBC Auto (Urine sed) [#/Area] None seen [HPF] 0-4 [facility] Automated monocyte %Ordered By: Nuvia Sanchez on 09-19-2023 Monocytes/100 WBC (Bld) 6.5 % Normal . [facility] Comment on above: Performed By: #### C 3, CH50, C4 #### [facility] , #### ESR, CMP, CBC, ADDONUAPLUS #### [facility] [address] [place] [address] Automated neutrophil %Ordere d By: Nuvia Sanchez on 09-19-2023 Neutrophils/100 WBC (Bld) 74.2 % Normal . [facility] Comment on above: Performed By: #### C 3, CH50, C4 #### [facility] , #### ESR, CMP, CBC, ADDONUAPLUS #### [facility] [address] [place] [address] Automated urine color determ inationOrdered By: Nuvia Sanchez on 09-19-2023 Color (U) Yellow Normal Yellow [facility] Comment on above: Order Comment: Name Collection Type:: Clean-Voided Midstream Performed By: #### C 3, CH50, C4 #### [facility] , #### ESR, CMP, CBC, ADDONUAPLUS #### [facility] [address] [place] [address] Bilirubin Test strip Ql (U)O rdered By: Nuvia Sanchez on 09-19-2023 Bilirubin Ql (U) Negative Negative [facility] Bilirubin.total [Mass/volume ] in Serum or PlasmaOrdered By: Nuvia Sanchez on 09-19-2023 Bilirubin [Mass/Vol] 0.2 mg/dL Low 0.3-1.0 [facility] Comment on above: Performed By: #### C 3, CH50, C4 #### [facility] , #### ESR, CMP, CBC, ADDONUAPLUS #### [facility] [address] Calcium [Mass/volume] in Ser um or PlasmaOrdered By: Nuvia Sanchez on 09-19-2023 Calcium [Mass/Vol] 8.6 mg/dL Normal 8.6-10.3 [facility] Comment on above: Performed By: #### C 3, CH50, C4 #### [facility] , #### ESR, CMP, CBC, ADDONUAPLUS #### [facility] [address] Carbon dioxide, total [Moles /volume] in Serum or PlasmaOrdered By: Nuvia Sanchez on 09-19-2023 CO2 [Moles/Vol] 24.3 mmol/L Normal 21.0-31.[address] [facility] Comment on above: Performed By: #### C 3, CH50, C4 #### [facility] , #### ESR, CMP, CBC, ADDONUAPLUS #### [address] Chloride [Moles/volume] in S liat or PlasmaOrdered By: Nuvia Sanchez on 09-19-2023 Chloride [Moles/Vol] 107 mmol/L Normal 98-107 [facility] Comment on above: Performed By: #### C 3, CH50, C4 #### [facility] , #### ESR, CMP, CBC, ADDONUAPLUS #### [facility] [address] [place] [address] [place] Complement C3on 09-19-2023 Complement C3 112 mg/dL Normal 82-167 [facility] Comment on above: Result Comment: Perf ormed at: - [facility] [address] [place], [place] [id number] Train Gateman: Usman Draper PhD, Phone: [phone] Performed By: #### C 3, CH50, C4 #### [facility] , #### ESR, CMP, CBC, ADDONUAPLUS #### [address] Complement C4on 09-19-2023 Complement C4 23 mg/dL Normal 12-38 [facility] Comment on above: Result Comment: PERF ORMED BY: [place] [address] PATHOLOGIST SAFETY LAMP KEEPER MANUEL PABON M.D. Performed By: #### C 3, CH50, C4 #### [facility] , #### ESR, CMP, CBC, ADDONUAPLUS #### [address] Complement Total (CH50)on Complement Total (CH50) 54 Normal >41 [facility] Comment on above: Result Comment: Age Male Female 1 - 30 days Not Estab. Not Estab. 31 days - 6 months >32 >20 7 months - 17 years >39 >39 >17 years >41 >41 NOTE: The adult ( >17 years ) reference interval range is used to flag abnormals on this report. If the patient is 17 years old or younger, use the table above to determine out of range values. Performed at: - [facility] [id number] Train Gateman: Usman Draper PhD, Phone: [phone] PERFORMED BY: [place] [address] PATHOLOGIST SAFETY LAMP KEEPER MANUEL PABON M.D. Performed By: #### C 3, CH50, C4 #### [facility] , #### ESR, CMP, CBC, ADDONUAPLUS #### [address] Complete Blood Count Auto Di ffon 09-19-2023 Mean Corpuscular HGB Conc 33.2 g/dL Normal 32.0-35.0 [facility] Comment on above: Performed By: #### C 3, CH50, C4 #### [facility] , #### ESR, CMP, CBC, ADDONUAPLUS #### [address] NRBC% 0.1 /100{WBC} Normal 0-0.5 [facility] Comment on above: Performed By: #### C 3, CH50, C4 #### [facility] , #### ESR, CMP, CBC, ADDONUAPLUS #### [address] Comprehensive Metabolic Pane trevor 09-19-2023 Albumin [Mass/Vol] 3.9 g/dL Normal 3.5-5.7 [facility] Comment on above: Performed By: #### C 3, CH50, C4 #### [facility] , #### ESR, CMP, CBC, ADDONUAPLUS #### [address] GFR/1.73 sq M.predicted MDRD (S/P/Bld) [Vol rate/Area] 40.226 mL/min/{1.73_m2} Normal [facility] Comment on above: Performed By: #### C 3, CH50, C4 #### [facility] , #### ESR, CMP, CBC, ADDONUAPLUS #### [address] Creatinine [Mass/volume] in Serum or PlasmaOrdered By: Nuvia Sanchez on 09-19-2023 Creatinine [Mass/Vol] 1.35 mg/dL High 0.60-1.20 [facility] Comment on above: Performed By: #### C 3, CH50, C4 #### [facility] , #### ESR, CMP, CBC, ADDONUAPLUS #### [place] [address] [place] Dipstick and Microscopicon 0 09-19-2023 Appearance (U) Clear Normal Clear [facility] Comment on above: Order Comment: Name Collection Type:: Clean-Voided Midstream Performed By: #### C 3, CH50, C4 #### [facility] , #### ESR, CMP, CBC, ADDONUAPLUS #### [address] Bacteria,Urine None Seen Normal None Seen [facility] Comment on above: Order Comment: Name Collection Type:: Clean-Voided Midstream Performed By: #### C 3, CH50, C4 #### [facility] , #### ESR, CMP, CBC, ADDONUAPLUS #### [address] Bilirubin,Urine Negative Normal Negative [facility] Comment on above: Order Comment: Name Collection Type:: Clean-Voided Midstream Performed By: #### C 3, CH50, C4 #### [facility] , #### ESR, CMP, CBC, ADDONUAPLUS #### [address] Glucose Ql (U) Normal Normal Normal [facility] Comment on above: Order Comment: Name Collection Type:: Clean-Voided Midstream Performed By: #### C 3, CH50, C4 #### [facility] , #### ESR, CMP, CBC, ADDONUAPLUS #### [address] Hyaline Casts,Urine 0-8 Normal 0-8 [facility] Comment on above: Order Comment: Name Collection Type:: Clean-Voided Midstream Result Comment: PERF ORMED BY: [place] [address] PATHOLOGIST SAFETY LAMP KEEPER MANUEL PABON M.D. Performed By: #### C 3, CH50, C4 #### [facility] , #### ESR, CMP, CBC, ADDONUAPLUS #### [address] Ketones Ql (U) Negative Normal Negative [facility] Comment on above: Order Comment: Name Collection Type:: Clean-Voided Midstream Performed By: #### C 3, CH50, C4 #### [facility] , #### ESR, CMP, CBC, ADDONUAPLUS #### [address] Leukocyte esterase Test strip Ql (U) Negative Normal Negative [facility] Comment on above: Order Comment: Name Collection Type:: Clean-Voided Midstream Performed By: #### C 3, CH50, C4 #### [facility] , #### ESR, CMP, CBC, ADDONUAPLUS #### [place] [address] [place] Nitrite,Urine Negative Normal Negative [facility] Comment on above: Order Comment: Name Collection Type:: Clean-Voided Midstream Performed By: #### C 3, CH50, C4 #### [facility] , #### ESR, CMP, CBC, ADDONUAPLUS #### [place] [address] [place] Occult Blood,Urine Negative Normal Negative [facility] Comment on above: Order Comment: Name Collection Type:: Clean-Voided Midstream Performed By: #### C 3, CH50, C4 #### [facility] , #### ESR, CMP, CBC, ADDONUAPLUS #### [place] [address] [place] Protein,Urine Negative Normal Negative [facility] Comment on above: Order Comment: Name Collection Type:: Clean-Voided Midstream Performed By: #### C 3, CH50, C4 #### [facility] , #### ESR, CMP, CBC, ADDONUAPLUS #### [place] [address] [place] RBC LM.HPF (Urine sed) [#/Area] 0 /[HPF] Normal 0-4 [facility] Comment on above: Order Comment: Name Collection Type:: Clean-Voided Midstream Performed By: #### C 3, CH50, C4 #### [facility] , #### ESR, CMP, CBC, ADDONUAPLUS #### [address] Specificy [place],Urine 1.011 Normal 1.001-1.03 0 [facility] Comment on above: Order Comment: Name Collection Type:: Clean-Voided Midstream Performed By: #### C 3, CH50, C4 #### [facility] , #### ESR, CMP, CBC, ADDONUAPLUS #### [address] Squamous Epithelial Cell,Urine None Seen Normal 0-2 [facility] Comment on above: Order Comment: Name Collection Type:: Clean-Voided Midstream Performed By: #### C 3, CH50, C4 #### [facility] , #### ESR, CMP, CBC, ADDONUAPLUS #### [address] Urobilinogen,Urine Normal Normal Normal [facility] Comment on above: Order Comment: Name Collection Type:: Clean-Voided Midstream Performed By: #### C 3, CH50, C4 #### [facility] , #### ESR, CMP, CBC, ADDONUAPLUS #### [address] WBC,Urine None Seen Normal 0-4 [facility] Comment on above: Order Comment: Name Collection Type:: Clean-Voided Midstream Performed By: #### C 3, CH50, C4 #### [facility] , #### ESR, CMP, CBC, ADDONUAPLUS #### [address] Erythrocyte Sedimentation Ra heather 09-19-2023 ESR (Bld) [Velocity] 15 mm/h Normal 0-29 [facility] Comment on above: Result Comment: PERF ORMED BY: [place] [address] PATHOLOGIST SAFETY LAMP KEEPER MANUEL PABON M.D. Performed By: #### C 3, CH50, C4 #### [facility] , #### ESR, CMP, CBC, ADDONUAPLUS #### [facility] [address] [place] [address] Erythrocyte distribution wid th [Ratio] by Automated countOrdered By: Nuvia Sanchez on 09-19-2023 Erythrocyte distribution width (RBC) [Ratio] 15.2 % Normal 11.9-15.3 [facility] Comment on above: Performed By: #### C 3, CH50, C4 #### [facility] , #### ESR, CMP, CBC, ADDONUAPLUS #### [address] Erythrocyte sedimentation ra te by Photometric methodOrdered By: Nuvia Sanchez on 09-19-2023 ESR Photometric method (Bld) [Velocity] 15 mm/hr 0-29 [facility] Erythrocytes [#/volume] in B lood by Automated countOrdered By: Nuvia Sanchez on 09-19-2023 RBC (Bld) [#/Vol] 3.76 10*6/uL Normal 3.60-5.00 [facility] Comment on above: Performed By: #### C 3, CH50, C4 #### [facility] , #### ESR, CMP, CBC, ADDONUAPLUS #### [address] Glucose [Mass/volume] in Ser um or PlasmaOrdered By: Nuvia Sanchez on 09-19-2023 Glucose [Mass/Vol] 84 mg/dL Normal 70-100 [facility] Comment on above: ADA recommended refe rence rangeRandom Glucose Reference Range is dependent on time and content of last meal. Glucose of more than 200 mg/dL in a nonstressed, ambulatory subject supports the diagnosis of Diabetes Mellitus. Result Comment: [facility] Glucose Reference Range is dependent on time and content of last meal. Glucose of more than 200 mg/dL in a nonstressed, ambulatory subject supports the diagnosis of Diabetes Mellitus. ADA recommended reference range Performed By: #### C 3, CH50, C4 #### [facility] , #### ESR, CMP, CBC, ADDONUAPLUS #### [facility] [address] Hematocrit [Volume Fraction] of Blood by Automated countOrdered By: Nuvia Sanchez on 09-19-2023 Hematocrit (Bld) [Volume fraction] 34.5 % Normal 34.0-46.4 [facility] Comment on above: Performed By: #### C 3, CH50, C4 #### [facility] , #### ESR, CMP, CBC, ADDONUAPLUS #### [facility] [address] Hemoglobin [Mass/volume] in BloodOrdered By: Nuvia Sanchez on 09-19-2023 Hemoglobin (Bld) [Mass/Vol] 11.4 g/dL Low 11.8-15.4 [facility] Comment on above: Performed By: #### C 3, CH50, C4 #### [facility] , #### ESR, CMP, CBC, ADDONUAPLUS #### [address] Ketones Auto test strip (U) [Mass/Vol]Ordered By: Nuvia Sanchez on 09-19-2023 Ketones (U) [Mass/Vol] Negative Negative [facility] Laboratory - UrinalysisOrder ed By: Nuvia Sanchez on 09-19-2023 Hyaline casts LM Ql (Urine sed) 0-8 [LPF] 0-8 [facility] Leukocytes [#/volume] correc pepito for nucleated erythrocytes in Blood by Automated counOrdered By: Nuvia Sanchez on 09-19-2023 WBC corrected for nucl RBC Auto (Bld) [#/Vol] 8.9 10*3/uL 3.8-11.6 [facility] Leukocytes [#/volume] in Blo od by Automated countOrdered By: Nuvia Sanchez on 09-19-2023 WBC (Bld) [#/Vol] 8.9 10*3/uL Normal 3.8-11.6 [facility] Comment on above: Performed By: #### C 3, CH50, C4 #### [facility] , #### ESR, CMP, CBC, ADDONUAPLUS #### [facility] [address] [place] [address] [place] Lymphocytes [#/volume] in Bl ood by Automated countOrdered By: Nuvia Sanchez on 09-19-2023 Lymphocytes (Bld) [#/Vol] 1.6 10*3/uL Normal 1.00-4.8 [facility] Comment on above: Performed By: #### C 3, CH50, C4 #### [facility] , #### ESR, CMP, CBC, ADDONUAPLUS #### [facility] [address] [place] [address] [place] Lymphocytes/100 leukocytes i n Blood by Automated countOrdered By: Nuvia Sanchez on 09-19-2023 Lymphocytes/100 WBC (Bld) 18.2 % Normal . [facility] Comment on above: Performed By: #### C 3, CH50, C4 #### [facility] , #### ESR, CMP, CBC, ADDONUAPLUS #### [facility] [address] [place] [address] [place] MCH [Entitic mass] by Automa pepito countOrdered By: Nuvia Sanchez on 09-19-2023 MCH (RBC) [Entitic mass] 30.4 pg Normal 24.7-34.3 [facility] Comment on above: Performed By: #### C 3, CH50, C4 #### [facility] , #### ESR, CMP, CBC, ADDONUAPLUS #### [address] MCHC Auto (RBC) [Mass/Vol]Or dered By: Nuvia Sanchez on 09-19-2023 MCHC (RBC) [Mass/Vol] 33.2 g/dL 32.0-35.0 [facility] MCV [Entitic volume] by Auto mated countOrdered By: Nuvia Sanchez on 09-19-2023 MCV (RBC) [Entitic vol] 91.6 fL Normal 80-100 [facility] Comment on above: Performed By: #### C 3, CH50, C4 #### [facility] , #### ESR, CMP, CBC, ADDONUAPLUS #### [address] Neutrophils [#/volume] in Bl ood by Automated countOrdered By: Nuvia Sanchez on 09-19-2023 Neutrophils (Bld) [#/Vol] 6.6 10*3/uL Normal 1.8-7.7 [facility] Comment on above: Performed By: #### C 3, CH50, C4 #### [facility] , #### ESR, CMP, CBC, ADDONUAPLUS #### [address] Nitrite Test strip Ql (U)Ord ered By: Nuvia Sanchez on 09-19-2023 Nitrite Ql (U) Negative Negative [facility] No Panel InformationOrdered By: Nuvia Sanchez on 09-19-2023 Estimated GFR (CKD-EPI) 40.226 mL/Min [facility] Creatinine Clearance (Chem N/A [facility] Nucleated erythrocytes [Pres ence] in Blood by Automated countOrdered By: Nuvia Sanchez on 09-19-2023 Nucleated RBC Auto Ql (Bld) 0.1 /100{WBC} 0-0.5 [facility] Platelet mean volume [Entiti c volume] in Blood by Automated countOrdered By: Nuvia Sanchez on 09-19-2023 Platelet mean volume (Bld) [Entitic vol] 8.6 fL Normal 6.3-10.7 [facility] Comment on above: Performed By: #### C 3, CH50, C4 #### [facility] , #### ESR, CMP, CBC, ADDONUAPLUS #### [address] Platelets [#/volume] in Bloo d by Automated countOrdered By: Nuvia Sanchez on 09-19-2023 Platelets (Bld) [#/Vol] 214 10*3/uL Normal 150-450 [facility] Comment on above: Performed By: #### C 3, CH50, C4 #### [facility] , #### ESR, CMP, CBC, ADDONUAPLUS #### [address] Potassium [Moles/volume] in Serum or PlasmaOrdered By: Nuvia Sanchez on 09-19-2023 Potassium [Moles/Vol] 4.2 mmol/L Normal 3.5-5.1 [facility] Comment on above: Performed By: #### C 3, CH50, C4 #### [facility] , #### ESR, CMP, CBC, ADDONUAPLUS #### [address] Protein Auto test strip (U) [Mass/Vol]Ordered By: Nuvia Sanchez on 09-19-2023 Protein (U) [Mass/Vol] Negative Negative [facility] Protein [Mass/volume] in Ser um or PlasmaOrdered By: Nuvia Sanchez on 09-19-2023 Protein [Mass/Vol] 6.1 g/dL Low 6.4-8.9 [facility] Comment on above: Performed By: #### C 3, CH50, C4 #### [facility] , #### ESR, CMP, CBC, ADDONUAPLUS #### [address] Serum globulin measurement b y calculation (mass/volume)Ordered By: Nuvia Sanchez on 09-19-2023 Globulin (S) [Mass/Vol] 2.2 g/dL [facility] Comment on above: Performed By: #### C 3, CH50, C4 #### [facility] , #### ESR, CMP, CBC, ADDONUAPLUS #### [address] Serum or plasma albumin/glob ulin mass ratioOrdered By: Nuvia Sanchez on 09-19-2023 Albumin/Globulin [Mass ratio] 1.8 {ratio} [facility] Comment on above: Performed By: #### C 3, CH50, C4 #### [facility] , #### ESR, CMP, CBC, ADDONUAPLUS #### [address] Serum or plasma anion gap de terminationOrdered By: Nuvia Sanchez on 09-19-2023 Anion gap [Moles/Vol] 9.9 mmol/L Normal 6.0-15.0 [facility] Comment on above: Performed By: #### C 3, CH50, C4 #### [facility] , #### ESR, CMP, CBC, ADDONUAPLUS #### [address] Sodium [Moles/volume] in Ser um or PlasmaOrdered By: Nuvia Sanchez on 09-19-2023 Sodium [Moles/Vol] 137 mmol/L Normal 136-145 [facility] Comment on above: Performed By: #### C 3, CH50, C4 #### [facility] , #### ESR, CMP, CBC, ADDONUAPLUS #### [address] Specific gravity Auto test s trip (U) [Rel density]Ordered By: Nuvia Sanchez on 09-19-2023 Specific gravity (U) [Rel density] 1.011 1.001-1.03 0 [facility] Squamous epithelial cells de tection in urine sediment by light microscopyOrdered By: Nuvia Sanchez on 09-19-2023 Epithelial cells.squamous LM Ql (Urine sed) None seen [HPF] 0-2 [facility] Urea nitrogen [Mass/volume] in Serum or PlasmaOrdered By: Nuvia Sanchez on 09-19-2023 Urea nitrogen [Mass/Vol] 32 mg/dL High 7-25 [facility] Comment on above: Performed By: #### C 3, CH50, C4 #### [facility] , #### ESR, CMP, CBC, ADDONUAPLUS #### [address] Urine bacteria detection by automated methodOrdered By: Nuvia Sanchez on 09-19-2023 Bacteria Auto Ql (U) None seen None Seen [facility] Urine clarity by refractomet ry automatedOrdered By: Nuvia Sanchez on 09-19-2023 Clarity Refractometry automated (U) Clear Clear [facility] Urine glucose measurement by automated test strip (mass/volume)Ordered By: Nuvia Sanchez on 09-19-2023 Glucose Auto test strip (U) [Mass/Vol] Normal mg/dL Normal [facility] Urine hemoglobin detection b y automated test stripOrdered By: Nuvia Sanchez on 09-19-2023 Hemoglobin Auto test strip Ql (U) Negative Negative [facility] Urine leukocyte esterase det ection by automated test stripOrdered By: Nuvia Sanchez on 09-19-2023 Leukocyte esterase Auto test strip Ql (U) Negative Negative [facility] Urine pH measurement by auto mated test stripOrdered By: Nuvia Sanchez on 09-19-2023 pH (U) 6.0 [pH] Normal 5.0-9.0 [facility] Comment on above: Order Comment: Name Collection Type:: Clean-Voided Midstream Performed By: #### C 3, CH50, C4 #### [facility] , #### ESR, CMP, CBC, ADDONUAPLUS #### [facility] [address] Urobilinogen Auto test strip (U) [Mass/Vol]Ordered By: Nuvia Sanchez on 09-19-2023 Urobilinogen (U) [Mass/Vol] Normal mg/dL Normal [facility] [place] 09-17-2023 Consent [id number] Normal [facility] Discharge Instructionson Discharge Instructions [id number] Normal [facility] Main OR Intraoperative Recor don 09-17-2023 Main OR Intraoperative Record IntraOp Document Type FT Summary Primary Physician: Davion Olivares MD Finalized Date/Time: 09/17/23 08:19:33 Pt. Name: MARY JANE RIOS/Sex: 1945 Female Med Rec #: [id number] Physician: Davion Olivares MD Financial #: [id number] Pt. Type: O Room/Bed: / Admit/Disch: 09/16/23 12:59:51 - 09/16/23 23:59:59 Institution: Case Times FT Entry 1 Patient Times In Room 09/16/23 14:15:00 Out Room 09/16/23 14:42:00 Procedure Times Start 09/16/23 14:20:00 Stop 09/16/23 14:39:00 Anesthesia Times Start 09/16/23 14:15:00 Stop 09/16/23 14:42:00 Time at [facility] 09/16/23 14:23:00 Last Modified By: Sd ACICEDO, Janell Reeves 09/16/23 14:41:11 General Comments: 09/17/23 Chart opened to review and send charges [facility] CSFA Case Attendance FT Entry 1 Entry 2 Entry 3 Case Attendee Jon SARKAR, Michi Beaver RN, Yong Fang Role Performed Anesthesiologist Hard Candy Batch Mixer - Primary Scrub - Primary Foam Rubber Molder Time In 09/16/23 14:15:00 09/16/23 14:15:00 09/16/23 14:15:00 Time Out 09/16/23 14:42:00 09/16/23 14:42:00 09/16/23 14:42:00 Procedure COLONOSCOPY(.) COLONOSCOPY(.) COLONOSCOPY(.) Comments Dr. Delgado supervising case Last Modified By: Sd RN, Janell Beaver RN, Janell Beaver RN, Janell Reeves 09/16/23 14:41:12 F 09/16/23 14:41:12 F 09/16/23 14:41:12 Entry 4 Entry 5 Case Attendee Alexa GUAN, Daisy Olivares MD, Davion Zarate Role Performed Staff - Other Surgeon - Primary Time In 09/16/23 14:15:00 09/16/23 14:15:00 Time Out 09/16/23 14:42:00 09/16/23 14:42:00 Procedure COLONOSCOPY(.) COLONOSCOPY(.) Comments help in room Last Modified By: Sd RN, Janell Beaver RN, Janell Reeves 09/16/23 14:41:12 F 09/16/23 14:41:12 Perioperative Protocols FT Pre-Care Text: Implements protective measures prior to operative or invasive procedure, confirms identity before the operative or invasive procedure, verifies operative procedure, surgical site, and laterality Entry 1 Procedure(s) COLONOSCOPY(.) Patient Identity Birthday, ID Band Verified (select at Check, Patient least 2): Participation Consents / H and P Anesthesia Consent, Operative Site N/A Verified HandP, Surgery/Procedure Marking Verified Consent Surgical Site No Laterality Verified n/a Verified Procedure Verified Yes Correct Patient Yes Position Verified Availability Equipment, Medication Prep Dry n/a Verified (If Applicable) Time Out Janell Beaver RN Time Out Complete 09/16/23 14:17:00 Participants F, Jon SARKAR, Georges Saez Micala E, Alexa GUAN, Marshall [place] MD, Davion Zarate Outcomes Met? Yes Last Modified By: Janell Beaver RN 09/16/23 14:22:56 Post-Care Text: The patient is free from signs and symptoms of injury caused by extraneous objects Allergy Information FT Pre-Care Text: Verifies allergies Entry 1 Allergies Reviewed? Yes Allergies Reviewed Self/Patient With Outcomes Met? Yes Last Modified By: Janell Beaver RN 09/16/23 14:23:02 Post-Care Text: The patient received appropriate medication(s) safely administered during the perioperative period Surgical Procedures FT Entry 1 Procedure Description Procedure COLONOSCOPY Modifiers . Surgeon Description Colonoscopy with ascending colon polypectomy x3. Primary Procedure Yes Primary Surgeon Marshall STEINER, Davion Zarate Start 09/16/23 14:20:00 Stop 09/16/23 14:39:00 Anesthesia Type General Surgical Service Gastroenterology Wound Class 2 - Clean-Contaminated Last Modified By: Janell Beaver RN 09/16/23 14:39:35 General Case Data FT Pre-Care Text: Classifies surgical wound, implements aseptic technique, initiates traffic control Entry 1 Case Information OR ENDO 1 FT Case Level Level 2 Wound Class 2 - Clean-Contaminated Specialty Gastroenterology ASA Class 3 Preop Diagnosis Intestional metaplasia Postop Same As Preop No of stomach, acid reflux, history of colon polyps Postop Diagnosis Ascending colon polyps Outcomes Met? Yes x3, diverticulosis, large internal hemorrhoids Last Modified By: Janell Beaver RN 09/16/23 14:41:08 Post-Care Text: The patient is free from signs and symptoms of infection Skin Assessment (Pre Procedure) FT Pre-Care Text: Implements protective measures to prevent skin/ tissue injury due to thermal or mechanical sources Evaluates for signs and symptoms of physical injury to skin and tissue Entry 1 Skin Integrity Intact, [place], Warm, and Skin Abnormality No Dry Outcomes Met? Yes Last Modified By: Janell Beaver RN 09/16/23 14:23:55 Post-Care Text: The patient is free from signs and symptoms of injury caused by extraneous objects Patient Positioning FT Pre-Care Text: Identifies physical alterations that require additional precautions for procedure-specific positioning, verifies presence of prosthe (more content not included)... [facility] Postoperative Documentson Postoperative Documents [id number] [facility] Consent for Treatmenton 08-29 Consent for Treatment [id number] [facility] Discharge Instructionson Discharge Instructions MARY JANE RIOS :1945 Visit Date:09/16/2023 Inpatient Discharge Instructions Your Care Team Admitting Physician - Davion Olivares MD Referring Physician - Marshall STEINER, Davion Zarate Reason for Your Visit INTESTIONAL METAPLASIA OF STOMACH, ACID REFLUX, HX COLON POLYPS Your Diagnosis Colon polyps Tests Performed Pathology Tissue Exam -- Results Pending -- Please visit your patient portal for your results or contact your primary care physician. This Is Your Medications List alprazolam aspirin calcium carbonate-magnesium carbonate citalopram (CeleXA 20 mg Tab) docusate (Colace) ergocalciferol (Vitamin D) famotidine famotidine (famotidine 40 mg Tab) fexofenadine (Ashley 24 Hour Allergy oral tablet) fluticasone nasal (fluticasone 0.05 mg/inh Nasal [place]) levothyroxine (levothyroxine 50 mcg (0.05 mg) Tab) loratadine (loratadine 10 mg oral capsule) multivitamin (Multiple Vitamins Tab) pantoprazole (Protonix) pilocarpine (Salagen 5 mg Tab) pravastatin psyllium (Metamucil Fibre Therapy) topiramate (Topamax) Procedure History EGD - Esophagogastroduodenoscopy (07/26/2022), Rotator cuff repair (07/28/2021), Sling procedure of bladder neck (06/03/2019), Cystourethroscopy with dilation of urethral stricture (03/24/2019), Epidural injection of lumbar spine using fluoroscopic guidance (12/12/2015), Radiofrequency ablation of nerve root of lumbar spine using fluoroscopic guidance (11/17/2014), Radiofrequency ablation of nerve root of lumbar spine using fluoroscopic guidance (11/03/2014), Injection of facet joint using fluoroscopic guidance (10/20/2014), Facet joint nerve block (08/11/2014), Injection of sacroiliac joint using fluoroscopic guidance (03/19/2014), Injection of sacroiliac joint using fluoroscopic guidance (03/23/2013), Injection of sacroiliac joint using fluoroscopic guidance (11/17/2012), Injection of sacroiliac joint using fluoroscopic guidance (10/13/2012), EGD (04/30/2012), Epidural injection of lumbar spine using fluoroscopic guidance (11/16/2011), Epidural injection of lumbar spine using fluoroscopic guidance (10/05/2011), Cystourethroscopy with dilation of urethral stricture (08/27/2011), Right heart catheterization (09/29/2010), Arthroplasty of the hip, Basal cell carcinoma of forehead, Carpal tunnel release, CE - Cataract extraction, Cholecystectomy, Gastric polypectomy, Partial resection of colon, Repair of ankle, Repair of ligament, Repair of ventral hernia, QAMAR BSO - Total abdominal hysterectomy and bilateral salpingo-oophorectomy, Total arthroplasty of knee, geomedic or polycentric. Discharge Vitals Temperature (Temporal Artery) 36.0 ?C Heart Rate (Monitored) 60 Respiratory Rate 16 Blood Pressure 126/86 Height 162 cm Weight 97.8 kg What to do next Instructions From Your Doctor Event Name Event Result Discharge Activity Resume normal activities in 24 hours Discharge Restrictions No driving for 24 hrs Discharge Diet(s) Regular Call Your Doctor For Persistent or heavy bleeding Pharmacy Information [facility] Discharge Instructions Discharge Instructions New Follow Up Appointments after Discharge Follow Up with Davion Olivares When: Comments: office will call for follow up Where: [address], [address] [address] [phone] Business (1) Medications What How Much When Instructions Next Dose Changed famotidine 20 Milligram By Mouth Once a day (at bedtime) Changed famotidine (famotidine 40 mg Tab) 1 Tablets By Mouth Once a day (at bedtime) Pickup at [id number] Unchanged alprazolam 0.5 Milligram By Mouth At bedtime Unchanged aspirin 81 Milligram By Mouth Every day Unchanged calcium carbonate-magnesium carbonate By Mouth 2 times a day Unchanged citalopram (CeleXA 20 mg Tab) 1 Tablets By Mouth Every day Unchanged docusate (Colace) 100 Milligram By Mouth Every day Unchanged ergocalciferol (Vitamin D) 2000 IU By Mouth 2 times a day Ordered by another provider. Unchanged fexofenadine (Ashley 24 Hour Allergy oral tablet) 1 Tablets By Mouth Every day Unchanged fluticasone nasal (fluticasone 0.05 mg/ inh Nasal [place]) 50 Microgram Nasal Inhalation Every day Unchanged levothyroxine (levothyroxine 50 mcg (0.05 mg) Tab) 1 Tablets By Mouth Every day Unchanged loratadine (loratadine 10 mg oral capsule) 1 Capsules By Mouth Every day as needed for Allergy symptoms Unchanged multivitamin (Multiple Vitamins Tab) 1 Tablets By Mouth Every day Unchanged pantoprazole (Protonix) 20 Milligram By Mouth 2 times a day Unchanged pilocarpine (Salagen 5 mg Tab) 1 Tablets By Mouth 3 times a day Ordered by another provider. Unchanged pravastatin 40 Milligram By Mouth Once a day (at bedtime) Unchanged psyllium (Metamucil Fibre Therapy) 1 cap By Mouth Every day Unchanged topiramate (Topamax) 50 Milligram By Mouth Every day Pharmacy Information (more content not included)... [facility] Comment on above: Result Comment: Elec tronically Signed By: Winnie CAICEDO, Miley\.br\Date and Time Signed: 09/16/23 15:00 EDT Endoscopic Procedure Report - Otheron 09-16-2023 Endoscopic Procedure Report - Other Patient: MARY JANE RIOS Age: 77 years Sex: Female : 1945 Associated Diagnoses: None Author: Davion Olivares MD Pre-Procedure Procedure Date 09/16/2023 14:41:00 . Procedure Type: Colonoscopy with removal of tumor(s), polyp(s), or other lesion(s) by cold snare technique. Procedure provider Performed by Davion Olivares MD. Current history and physical Documented on chart. Colorectal neoplasm risk assessment High risk Previous history of polyps. . Informed Consent After discussing the rationale, risks and benefits, and alternatives to this procedure, the patient provided signed consent for the procedure. Pre-procedure diagnosis: History of colon polyps. Medications Anticoagulant/antiplatelet None. ASA Classification: Class II. . Monitoring: See anesthesia record. . Procedure The procedure was performed in the hospital. See anesthesia record for sedation given during procedure. The patient was positioned starting in the left lateral decubitus position. Endoscope type used was an adult-size. The endoscope was lubricated then introduced through the anus. The scope was advanced to the terminal ileum. No difficulties encountered during the procedure. The bowel preparation quality was adequate (see polyps greater than or equal to 6 millimeters). The patient tolerated the procedure well. Time to Cecum: 3 min Withdrawal time 16 min Last colonoscopy: 2016 Findings 1. Large internal hemorrhoids 2. Mild sigmoid diverticulosis 3. 3 small sessile polyps in the ascending colon, 3-5 mm in size, resected with cold snare completely and retrieved 4. Normal examined terminal ileum Images Procedure images: Rec1_hd_video_ [id number].jpg Rec1_hd_video_ [id number].jpg Rec1_hd_video_ [id number].jpg Rec1_hd_video_ [id number].jpg Rec1_hd_video_ [id number].jpg Rec1_hd_video_ 3_[id number]_149.jpg Rec1_hd_video_ 3_[id number]_[id number].jpg Rec1_hd_video_ 3_36_[id number]_120.jpg Rec1_hd_video_ 3_35_[id number]_408.jpg Rec1_hd_video_ 3_34_51_465.jpg Rec1_hd_video_ [id number].jpg Rec1_hd_video_ 3_32_[id number].jpg . Post-Procedure Complications: none. Estimated blood loss: Minimal. Specimens: sent to pathology. Devices/ implants: none left in place. Impression and Plan 1. Large internal hemorrhoids 2. Mild sigmoid diverticulosis 3. 3 small sessile polyps in the ascending colon, 3-5 mm in size, resected with cold snare completely and retrieved 4. Normal examined terminal ileum Recommendations: Repeat colonoscopy:: Based on pathology . Follow-up:: in clinic for 1-2 weeks when pathology is available. Diet:: Previous. Medication resumption:: Continue current medications, Avoid NSAIDs. Return to activities:: After 24 hours. Education and Follow-up: Counseled: Patient, Family. [facility] Comment on above: Result Comment: Elec tronically Signed By: Marshall STEINER, Davion Zarate\.br\Date and Time Signed: 09/16/23 14:42 EDT Other Comment: Rachel saravia Attachment - attachment storage system not supported [id number] Can be viewed in source system Missing Attachment - attachment storage system not supported [id number] Can be viewed in source system Missing Attachment - attachment storage system not supported [id number] Can be viewed in source system Missing Attachment - attachment storage system not supported [id number] Can be viewed in source system Missing Attachment - attachment storage system not supported [id number] Can be viewed in source system Missing Attachment - attachment storage system not supported [id number] Can be viewed in source system Missing Attachment - attachment storage system not supported [id number] Can be viewed in source system Missing Attachment - attachment storage system not supported [id number] Can be viewed in source system Missing Attachment - attachment storage system not supported [id number] Can be viewed in source system Missing Attachment - attachment storage system not supported [id number] Can be viewed in source system Missing Attachment - attachment storage system not supported [id number] Can be viewed in source system Missing Attachment - attachment storage system not supported [id number] Can be viewed in source system Gastroenterology Office/Clin ic Noteon 09-16-2023 Gastroenterology Office/Clinic Note Chief Complaint 6 month f/u HPI Staff Patient is a(n) 77 year old female who presents today for a(n) 6 month follow up. C/o occasional acid reflux depending on diet. Diarrhea when eating too many fresh fruits/veggies. Last visit 08/28/22 w/Donna: 1. Intestinal metaplasia of stomach (K31.A0: Gastric intestinal metaplasia, unspecified) EGD completed 07/26/2022 revealed normal esophagus, diffuse gastric erythema, normal duodenum, fundus biopsy revealed chronic gastritis, intestinal metaplasia present, incisura biopsy revealed gastritis, negative for intestinal metaplasia, focal active inflammation, antrum biopsy revealed chronic active gastritis, negative for H. pylori, intestinal metaplasia present, gastric body biopsy revealed hyperplastic regenerative gastric mucosa with moderate chronic gastritis, intestinal metaplasia present. Discussed benefits vs. risks regarding repeat EGD. Patient is agreeable to repeat EGD in 1 year- 2023 for further evaluation of IM of stomach. 2. Acid reflux (K21.9: Gastro-esophageal reflux disease without esophagitis) Controlled with pantoprazole 20mg BID and pepcid 20mg at bedtime. EGD completed 07/26/2022 revealed normal esophagus, diffuse gastric erythema, normal duodenum, fundus biopsy revealed chronic gastritis, intestinal metaplasia present, incisura biopsy revealed gastritis, negative for intestinal metaplasia, focal active inflammation, antrum biopsy revealed chronic active gastritis, negative for H. pylori, intestinal metaplasia present, gastric body biopsy revealed hyperplastic regenerative gastric mucosa with moderate chronic gastritis, intestinal metaplasia present. Continue pantoprazole 20mg BID and pepcid 20mg at bedtime. Educated to elevate HOB at night, avoid triggers, and educated to avoid eating 3 hours before bedtime. 3. Low vitamin B12 level (E53.8: Deficiency of other specified B group vitamins) Labs completed 07/10/2022 revealed low vitamin B12. Patient was previously educated to start OTC vitamin B12 supplementation OTC 1,000mcg. daily. Ordered repeat B12 level 09/2022. Continue B12 supplementation 1,000mcg. daily. Ordered: Vitamin B12 Level 4. History of colon polyps (Z86.010: Personal history of colonic polyps) Previous colonoscopy 01/[address] Hernandez that revealed 2 tubular adenomas removed from ascending colon, diverticulosis with evidence of prior colon anastomosis, hemorrhoids and is due for repeat colonoscopy in 2023. Last EGD 07/26/22 w/Dr. Hernandez: Diffuse gastric erythema, random biopsy obtained from the antrum, incisura, gastric body and fundus to map for gastric intestinal metaplasia Pathology: A: GASTRIC BODY, BIOPSY: ? HYPERPLASTIC REGENERATIVE GASTRIC MUCOSA WITH MODERATE CHRONIC GASTRITIS. ? INTESTINAL METAPLASIA IDENTIFIED. B: ANTRUM, BIOPSY: ? ANTRAL MUCOSA WITH MODERATE CHRONIC ACTIVE GASTRITIS AND HYPERPLASTIC REGENERATIVE CHANGES. ? INTESTINAL METAPLASIA IDENTIFIED. ? NO H. PYLORI MICROORGANISMS IDENTIFIED WITH IMMUNOSTAIN. C: FUNDUS, BIOPSY: ? HYPERPLASTIC GASTRIC MUCOSA WITH MODERATE CHRONIC GASTRITIS. ? INTESTINAL METAPLASIA IDENTIFIED. D: INCISURA, BIOPSY: ? HYPERPLASTIC REGENERATIVE GASTRIC MUCOSA WITH MODERATE CHRONIC GASTRITIS. ? FOCAL ACTIVE INFLAMMATION EVIDENT. ? NO INTESTINAL METAPLASIA IDENTIFIED. Colonoscopy 02/13/21: 2 TA's. Recommended a repeat in 2023. B12 lab not completed. History of Present Illness My stomach is pretty good Regular BM, 1-2 Heartburn is controlled Review of Systems PHQ Score Initial Depression Screen Score: 2 Physical Exam Vitals & Measurements HR: 64(Peripheral) RR: 16 BP: 135/92 SpO2: 98% HT: 64 in HT: 162 cm WT: 97.8 kg WT: 215.16 lb BMI: 37.27 General: alert, no acute distress HEENT: atraumatic normocephalic Cardiovascular: regular rate and rhythm, normal peripheral perfusion Respiratory: Lungs CTA, respirations non labored Extremities: no deformity, no trauma Abdomen: Benign, soft, nontender nondistended Assessment/Plan 1. Intestinal metaplasia of stomach (K31.A0: Gastric intestinal metaplasia, unspecified) Will repeat EGD with mapping 2023 with the colonoscopy 2. Acid reflux (K21.9: Gastro-esophageal reflux disease without esophagitis) Controlled, cont PPI (20 mg bid) and Pepcid as LSM 3. History of colon polyps (Z86.010: Personal history of colonic polyps) Repeat in 2023, had TAs before Follow-up No qualifying data available Problem List/Past Medical History Ongoing Acid reflux Anticoagulated Asymptomatic microscopic hematuria Chronic back pain Epigastric pain H/O: arthritis History of colon polyps Hypercholesterolemia Hypothyroidism Internal hemorrhoids Intestinal metaplasia of stomach Low vitamin B12 level Mixed incontinence Mixed stress and urge urinary incontinence Nocturia Sleep apnea Stress incontinence TMJ (temporomandibular joint disorder) Urge incontinence Weak urinary stream Historical Co (more content not included)... Normal [facility] Comment on above: Result Comment: Elec tronically Signed By: Marshall STEINER, Davion Zarate\.linden\Date and Time Signed: 09/16/23 14:16 EDT Inpatient Patient Summaryon 09-16-2023 Inpatient Patient Summary [address] [address] [facility] Clinical Discharge Instructions PERSON INFORMATION Name: MARY JANE RIOS PHYSICIANS Admitting Physician: Davion Oliavres MD Attending Physician: Davion Olivares MD PCP: NABILA STEINER, RONI Ortiz Discharge Diagnosis: Colon polyps Comment: PATIENT EDUCATION INFORMATION Instructions: Medication Leaflets: Follow up: MEDICATION LIST Medications to Continue Taking That Have Changed [id number], [address], [place] [id number], [phone] START: famotidine (famotidine 40 mg Tab) 1 Tablets By Mouth once a day (at bedtime). Refills: 6. Other Medications START: famotidine 20 Milligram By Mouth once a day (at bedtime). Medications to Continue with No Changes Other Medications alprazolam 0.5 Milligram By Mouth at bedtime. aspirin 81 Milligram By Mouth every day. calcium carbonate-magnesium carbonate By Mouth 2 times a day. citalopram (CeleXA 20 mg Tab) 1 Tablets By Mouth every day. docusate (Colace) 100 Milligram By Mouth every day. ergocalciferol (Vitamin D) 2000 IU By Mouth 2 times a day. Ordered by another provider.. fexofenadine (Ashley 24 Hour Allergy oral tablet) 1 Tablets By Mouth every day. fluticasone nasal (fluticasone 0.05 mg/inh Nasal [place]) 50 Microgram Nasal Inhalation every day. levothyroxine (levothyroxine 50 mcg (0.05 mg) Tab) 1 Tablets By Mouth every day. loratadine (loratadine 10 mg oral capsule) 1 Capsules By Mouth every day as needed Allergy symptoms. multivitamin (Multiple Vitamins Tab) 1 Tablets By Mouth every day. pantoprazole (Protonix) 20 Milligram By Mouth 2 times a day. pilocarpine (Salagen 5 mg Tab) 1 Tablets By Mouth 3 times a day. Ordered by another provider.., dry mouth pravastatin 40 Milligram By Mouth once a day (at bedtime). psyllium (Metamucil Fibre Therapy) 1 cap By Mouth every day. topiramate (Topamax) 50 Milligram By Mouth every day. Comment: Home [facility] Main OR PACU I Recordon 08-29 Main OR PACU I Record PACU Phase I Docum ent Type FT Summary Primary Physician: Davion Olivares MD Finalized Date/Time: 09/16/23 16:43:13 Pt. Name: MARY JANE RIOS Ora Gagnon/Sex: 1945 Female Med Rec #: [id number] Physician: Davion Olivares MD Financial #: [id number] Pt. Type: O Room/Bed: / Admit/Disch: 09/16/23 12:59:51 - Institution: Case Times PACU I FT Pre-Care Text: Identifies barriers to communication and implements measures to provide psychological support Develops individualized plan of care, and ensures continuity of care Maintains patient's dignity and privacy, and maintains patient confidentiality Identifies and reports philosophical, cultural, and spiritual beliefs and values Identifies individual values and wishes concerning care Implements aseptic technique, and administers prescribed antibiotic therapy and immunizing agents as ordered Evaluates postoperative tissue perfusion Implements thermoregulation measures, and monitors body temperature Evaluates postoperative respiratory status Evaluates postoperative cardiac status Evaluates postoperative neurological status Assesses pain control, collaborated in initiating patient-controlled analgesia and implements alternative methods of pain control Verifies allergies, administers prescribed medications and solutions, evaluates response to medications Entry 1 In PACU I 09/16/23 14:44:00 Discharge from PACU 09/16/23 15:14:00 I Outcomes Met? Yes Last Modified By: Miley Zhou RN 09/16/23 16:42:26 Post-Care Text: The patient demonstrates knowledge of the expected response to the operative or invasive procedure The patient's care is consistent with the individualized perioperative plan of care The patient's right to privacy is maintained The patient's value system, lifestyle, ethnicity, and culture are considered, respected, and incorporated into the perioperative plan of care The patient participates in decisions affecting his or her perioperative plan of care The patient is free from signs and symptoms of infection The patient has wound/tissue perfusion consistent with or improved from baseline levels established preoperatively The patient is at or returning to normothermia at the conclusion of the immediate postoperative period The patient's respiratory function is consistent with or improved from baseline levels established preoperatively The patient's cardiovascular status is consistent with or improved from baseline levels established preoperatively The patient's cardiovascular status is consistent with or improved from baseline levels established preoperatively The patient demonstrates and/or reports adequate pain control throughout the perioperative period The patient received appropriate medication(s), safely administered during the perioperative period Acuity Level PACU I FT Entry 1 Start Time 09/16/23 14:44:00 Stop Time 09/16/23 15:14:00 Acuity Level Acuity Level I Last Modified By: Miley Zhou RN 09/16/23 16:42:50 Finalized By: Miley Zhou RN Document Signatures Signed By: Miley Zhou RN 09/16/23 16:43 Normal [facility] Main OR Preoperative Recordo n 09-16-2023 Main OR Preoperative Record Holding Area Document Type FT Summary Primary Physician: Davion Olivares MD Finalized Date/Time: 09/16/23 13:10:36 Pt. Name: BLANCAMARY JANE/Sex: 1945 Female Med Rec #: [id number] Physician: Davion Olivares MD Financial #: [id number] Pt. Type: O Room/Bed: / Admit/Disch: 09/16/23 12:59:51 - Institution: Case Times Holding FT Pre-Care Text: Verifies consent for planned procedure, identifies individual values and wishes concerning care, includes family members in perioperative teaching Secures patient's records' belongings, and valuables, maintains patient's dignity and privacy, and maintains patient confidentiality Entry 1 In Holding 09/16/23 13:05:00 Outcomes Met? Yes Last Modified By: Eliza Lyn RN 09/16/23 13:08:41 Post-Care Text: The patient participates in decisions affecting his or her perioperative plan of care The patient's right to privacy is maintained Surgery Checklist FT Entry 1 Patient Birthday, ID Band Procedure History and Physical, Identification: Check, Patient Verification: Surgical Consent, With Participation Patient NPO after Midnight: Yes Results Reviewed Yellow Comments: Personal Items: Cataract Lens Implant, Personal Items Bilat IOL, ring x4, Jewelry Comment: earrings bilat hearing aids, bilat knee replaced, left hip metal, cane Limitations: Vision, hard of hearing Complaints of Pain: No Pain Comment: Denies Operative Site n/a Marking: Availability Equipment Verified: Does Patient Smoke No Patient states Yes Comment - Adult postop adult Supervision supervision available Case Cancelled in No Holding Area see comments below for reason Last Modified By: Eliza Lyn RN 09/16/23 13:10:32 General Comments: Pt completed prep at 0700 and remained NPO since/YUNIER,RN Finalized By: Eliza Lyn RN Document Signatures Signed By: Eliza Lyn RN 09/16/23 13:10 Normal [facility] Monitor Recordon 09-16-2023 Monitor Record [id number] [facility] Monitor Record [id number] [facility] Outpatient Surgery Discharge Instructionon 09-16-2023 Outpatient Surgery Discharge Instruction [place] [id number] Patient Discharge Instructions PERSON INFORMATION Name: MARY JANE RIOS Date of : 1945 Current Date: 09/16/2023 14:40:03 PHYSICIANS Admitting Physician: Davion Olivares MD Discharge Diagnosis: Colon polyps MARY JANE RIOS has been given the following list of follow-up instructions, prescriptions, and patient education materials: PATIENT FOLLOW-UP INFORMATION Diet: Regular Discharge Activity: Resume normal activities in 24 hours Discharge Restrictions: No driving for 24 hrs Call Your Doctor For: Persistent or heavy bleeding IF UNABLE TO CONTACT YOUR PHYSICIAN AND YOU FEEL IT IS AN EMERGENCY, GO TO THE NEAREST EMERGENCY ROOM OR CALL 911 BLANCA Bergman SHIRLEY J, have received the attached patient education materials/instructions and have verbalized understanding: May we do a follow up call? Yes No I was present when discharge instructions were given ____ Patient Signature _ Date Clinican/Nurse Signature Date Follow up: Pharmacy Information: [facility] You may receive a survey from [employer] asking you to rate your care experience. Your feedback is important and will help us understand what we do well and how we can improve the quality of care we provide to you, your loved ones and our community. It?s an honor to serve you. Thank you for choosing [facility] HERE ARE THE MEDICATION CHANGES THAT OCCURRED DURING YOUR HOSPITAL STAY Medications to Continue Taking That Have Changed [id number], [address] [facility] [place] [id number], [phone] START: famotidine (famotidine 40 mg Tab) 1 Tablets By Mouth once a day (at bedtime). Refills: 6. Other Medications START: famotidine 20 Milligram By Mouth once a day (at bedtime). Medications to Continue with No Changes Other Medications alprazolam 0.5 Milligram By Mouth at bedtime. aspirin 81 Milligram By Mouth every day. calcium carbonate-magnesium carbonate By Mouth 2 times a day. citalopram (CeleXA 20 mg Tab) 1 Tablets By Mouth every day. docusate (Colace) 100 Milligram By Mouth every day. ergocalciferol (Vitamin D) 2000 IU By Mouth 2 times a day. Ordered by another provider.. fexofenadine (Ashley 24 Hour Allergy oral tablet) 1 Tablets By Mouth every day. fluticasone nasal (fluticasone 0.05 mg/inh Nasal [place]) 50 Microgram Nasal Inhalation every day. levothyroxine (levothyroxine 50 mcg (0.05 mg) Tab) 1 Tablets By Mouth every day. loratadine (loratadine 10 mg oral capsule) 1 Capsules By Mouth every day as needed Allergy symptoms. multivitamin (Multiple Vitamins Tab) 1 Tablets By Mouth every day. pantoprazole (Protonix) 20 Milligram By Mouth 2 times a day. pilocarpine (Salagen 5 mg Tab) 1 Tablets By Mouth 3 times a day. Ordered by another provider.., dry mouth pravastatin 40 Milligram By Mouth once a day (at bedtime). psyllium (Metamucil Fibre Therapy) 1 cap By Mouth every day. topiramate (Topamax) 50 Milligram By Mouth every day. PATIENT EDUCATION INFORMATION Instructions: Medication Leaflets: [facility] Patient Education - Texton 0 09-16-2023 Patient Education - Text [facility] Progress Note-Physicianon Progress Note-Physician Patient: MARY JANE RIOS Age: 77 years Sex: Female : 1945 Associated Diagnoses: None Author: Danny Anesthesiology ()Obie Postoperative Information Postoperative disposition: Postoperative disposition: To PACU. Anesthetic utilized: General. Health Status Allergies: Allergic Reactions (Selected) Moderate Triamterene- Rash. Severity Not Documented Bactrim- Rash. Glutens- Upset stomach. Ibuprofen- U. Latex- Rash. Morphine- Vomiting. Naproxen- Unknown. Sulfamethoxazole- Rash. Wheat- Itching. Current medications: (Selected) Inpatient Medications Ordered Lactated Ringers IV Melissa 1000 mL 1,000 mL: 1,000 mL, IV, 100 mL/hr, Routine, Start date 09/16/23 13:34:00 EDT, 10 hour(s), Total volume (mL): 1,000, 97.8 kg, 2.1, m2 Sodium Chloride 0.9% IV Melissa 1000 mL 1,000 mL: 1,000 mL, IV, 20 mL/hr, Routine, Start date 09/16/23 10:13:00 EDT, 50 hour(s), Total volume (mL): 1,000 Prescriptions Prescribed famotidine 40 mg Tab: 40 mg = 1 tab(s), Oral, Once a day (at bedtime), # 90 tab(s), Refills(s) 6, Pharmacy: [id number], 162, cm, 09/16/23 10:47:00 EDT, Height/Length Dosing, 97.8, kg, 09/16/23 10:47:00 EDT, Weight Dosing Documented Medications Documented Ashley 24 Hour Allergy oral tablet: 180 mg = 1 tab(s), Oral, Daily, Allergy symptoms CeleXA 20 mg Tab: 20 mg = 1 tab(s), Oral, Daily, Refills(s) 0, Depression Colace: 100 mg, Oral, Daily, Refills(s) 0, Constipation Metamucil Fibre Therapy: 1 cap, Oral, Daily, Constipation Multiple Vitamins Tab: 1 tab(s), Oral, Daily, Refill(s) 0, Prophylaxis Protonix: 20 mg, Oral, BID, Refills(s) 0, Control of stomach acid Salagen 5 mg Tab: 5 mg = 1 tab(s), Oral, TID, Ordered by another provider., Refills(s) 0, Other (see comment) Topamax: 50 mg, Oral, Daily, Refills(s) 0, Migraine headache Vitamin D: 2000 IU, Oral, BID, Ordered by another provider., Refills(s) 0, Prophylaxis alprazolam: 0.5 mg, Oral, Bedtime, Refills(s) 0, Anxiety aspirin: 81 mg, Oral, Daily, Refills(s) 0, Prophylaxis calcium carbonate-magnesium carbonate: tab(s), Oral, BID, Refill(s) 0, Prophylaxis famotidine: 20 mg, Oral, Once a day (at bedtime), Refills(s) 0, Control of stomach acid fluticasone 0.05 mg/inh Nasal [place]: 50 mcg, Nasal, Daily, Refill(s) 0, Allergy symptoms levothyroxine 50 mcg (0.05 mg) Tab: 50 microgram = 1 tab(s), Oral, Daily, Refills(s) 0, Thyroid loratadine 10 mg oral capsule: 10 mg = 1 cap(s), Oral, Daily, PRN Allergy symptoms pravastatin: 40 mg, Oral, Once a day (at bedtime), Refills(s) 0, High cholesterol, Home Medications (18) Active Ashley 24 Hour Allergy oral tablet 180 mg = 1 tab(s), Oral, Daily alprazolam 0.5 mg, Oral, Bedtime aspirin 81 mg, Oral, Daily calcium carbonate-magnesium carbonate , Oral, BID CeleXA 20 mg Tab 20 mg = 1 tab(s), Oral, Daily Colace 100 mg, Oral, Daily famotidine 20 mg, Oral, Once a day (at bedtime) famotidine 40 mg Tab 40 mg = 1 tab(s), Oral, Once a day (at bedtime) fluticasone 0.05 mg/inh Nasal [place] 50 mcg, Nasal, Daily levothyroxine 50 mcg (0.05 mg) Tab 50 microgram = 1 tab(s), Oral, Daily loratadine 10 mg oral capsule 10 mg = 1 cap(s), PRN, Oral, Daily Metamucil Fibre Therapy 1 cap, Oral, Daily Multiple Vitamins Tab 1 tab(s), Oral, Daily pravastatin 40 mg, Oral, Once a day (at bedtime) Protonix 20 mg, Oral, BID Salagen 5 mg Tab 5 mg = 1 tab(s), Oral, TID Topamax 50 mg, Oral, Daily Vitamin D 2000 IU, Oral, BID Problem list: All Problems Acid reflux / SNOMED CT 553704498 / Confirmed Anticoagulated / SNOMED CT 127320234 / Confirmed Asymptomatic microscopic hematuria / SNOMED CT 5346501259 / Confirmed Chronic back pain / SNOMED CT 705202071 / Confirmed Epigastric pain / SNOMED CT 649395573 / Confirmed H/O: arthritis / SNOMED CT 543395288 / Confirmed History of colon polyps / SNOMED CT 2422712152 / Confirmed Hypercholesterolemia / SNOMED CT 08630349 / Confirmed Hypothyroidism / SNOMED CT 02619493 / Confirmed Internal hemorrhoids / SNOMED CT 822315924 / Confirmed Intestinal metaplasia of stomach / SNOMED CT 018490903 / Confirmed Low vitamin B12 level / SNOMED CT 0465710515 / Confirmed Mixed incontinence / SNOMED CT 37472728 / Confirmed Mixed stress and urge urinary incontinence / SNOMED CT 1452992569 / Confirmed Nocturia / SNOMED CT 466453832 / Confirmed Obesity / ICD-9-CM 278.00 / Possible Shoulder strain / SNOMED CT 333293385 / Confirmed Sleep apnea / SNOMED CT 037248803 / Confirmed USES CPAP Stress incontinence / SNOMED CT 476275785 / Confirmed TMJ (temporomandibular joint disorder) / SNOMED CT 30215954 / Confirmed Urge incontinence / SNOMED CT 024204927 / Confirmed Weak urinary stream / SNOMED CT 458455553 / Confirmed Resolved: Constipation / SNOMED CT 30035695 Resolved: Diverticulosis / SNOMED CT 7045997410 Resolved: Frequency of urination / SNOMED CT 189686012 Resolved: Gastritis / SNOMED CT 0795363 Resolved: Hx of post-iza (more content not included)... Normal [facility] Comment on above: Result Comment: Elec tronically Signed By: Danny MORE)Obie\.br\Date and Time Signed: 09/16/23 14:59 EDT Progress Note-Physician Patient: MARY JANE RIOS Age: 77 years Sex: Female : 1945 Associated Diagnoses: None Author: Obie Carter DO Preoperative Information Anesthesia history: Patient history: None. Family history+: None. Anesthesia results Informed consent: Signed by patient. Including risks, benefits, and alternatives related to the: Anesthetic plan, Postoperative pain management plan. Re-evaluation prior to induction: Obie Delgado DO. Health Status Allergies: Allergic Reactions (Selected) Moderate Triamterene- Rash. Severity Not Documented Bactrim- Rash. Glutens- Upset stomach. Ibuprofen- U. Latex- Rash. Morphine- Vomiting. Naproxen- Unknown. Sulfamethoxazole- Rash. Wheat- Itching., Allergies (9) Active Severity Reaction triamterene Moderate Rash morphine Vomiting sulfamethoxazole Rash Latex Rash Bactrim Rash Wheat Itching Glutens Upset stomach naproxen Unknown ibuprofen Current medications: (Selected) Inpatient Medications Ordered Lactated Ringers IV Melissa 1000 mL 1,000 mL: 1,000 mL, IV, 100 mL/hr, Routine, Start date 09/16/23 13:34:00 EDT, 10 hour(s), Total volume (mL): 1,000, 97.8 kg, 2.1, m2 Sodium Chloride 0.9% IV Melissa 1000 mL 1,000 mL: 1,000 mL, IV, 20 mL/hr, Routine, Start date 09/16/23 10:13:00 EDT, 50 hour(s), Total volume (mL): 1,000 Documented Medications Documented Ashley 24 Hour Allergy oral tablet: 180 mg = 1 tab(s), Oral, Daily, Allergy symptoms CeleXA 20 mg Tab: 20 mg = 1 tab(s), Oral, Daily, Refills(s) 0, Depression Colace: 100 mg, Oral, Daily, Refills(s) 0, Constipation Metamucil Fibre Therapy: 1 cap, Oral, Daily, Constipation Multiple Vitamins Tab: 1 tab(s), Oral, Daily, Refill(s) 0, Prophylaxis Protonix: 20 mg, Oral, BID, Refills(s) 0, Control of stomach acid Salagen 5 mg Tab: 5 mg = 1 tab(s), Oral, TID, Ordered by another provider., Refills(s) 0, Other (see comment) Topamax: 50 mg, Oral, Daily, Refills(s) 0, Migraine headache Vitamin D: 2000 IU, Oral, BID, Ordered by another provider., Refills(s) 0, Prophylaxis alprazolam: 0.5 mg, Oral, Bedtime, Refills(s) 0, Anxiety aspirin: 81 mg, Oral, Daily, Refills(s) 0, Prophylaxis calcium carbonate-magnesium carbonate: tab(s), Oral, BID, Refill(s) 0, Prophylaxis famotidine: 20 mg, Oral, Once a day (at bedtime), Refills(s) 0, Control of stomach acid fluticasone 0.05 mg/inh Nasal [place]: 50 mcg, Nasal, Daily, Refill(s) 0, Allergy symptoms levothyroxine 50 mcg (0.05 mg) Tab: 50 microgram = 1 tab(s), Oral, Daily, Refills(s) 0, Thyroid loratadine 10 mg oral capsule: 10 mg = 1 cap(s), Oral, Daily, PRN Allergy symptoms pravastatin: 40 mg, Oral, Once a day (at bedtime), Refills(s) 0, High cholesterol, Home Medications (17) Active Ashley 24 Hour Allergy oral tablet 180 mg = 1 tab(s), Oral, Daily alprazolam 0.5 mg, Oral, Bedtime aspirin 81 mg, Oral, Daily calcium carbonate-magnesium carbonate , Oral, BID CeleXA 20 mg Tab 20 mg = 1 tab(s), Oral, Daily Colace 100 mg, Oral, Daily famotidine 20 mg, Oral, Once a day (at bedtime) fluticasone 0.05 mg/inh Nasal [place] 50 mcg, Nasal, Daily levothyroxine 50 mcg (0.05 mg) Tab 50 microgram = 1 tab(s), Oral, Daily loratadine 10 mg oral capsule 10 mg = 1 cap(s), PRN, Oral, Daily Metamucil Fibre Therapy 1 cap, Oral, Daily Multiple Vitamins Tab 1 tab(s), Oral, Daily pravastatin 40 mg, Oral, Once a day (at bedtime) Protonix 20 mg, Oral, BID Salagen 5 mg Tab 5 mg = 1 tab(s), Oral, TID Topamax 50 mg, Oral, Daily Vitamin D 2000 IU, Oral, BID , Medications (2) Active Scheduled: (0) Continuous: (2) Lactated Ringers 1,000 mL 1,000 mL, IV, 100 mL/hr Sodium Chloride 0.9% 1,000 mL 1,000 mL, IV, 20 mL/hr PRN: (0) Problem list: All Problems Acid reflux / SNOMED CT 630151654 / Confirmed Anticoagulated / SNOMED CT 108005330 / Confirmed Asymptomatic microscopic hematuria / SNOMED CT 4910167619 / Confirmed Chronic back pain / SNOMED CT 152292093 / Confirmed Epigastric pain / SNOMED CT 565427187 / Confirmed H/O: arthritis / SNOMED CT 983919337 / Confirmed History of colon polyps / SNOMED CT 4850943613 / Confirmed Hypercholesterolemia / SNOMED CT 59061703 / Confirmed Hypothyroidism / SNOMED CT 52283776 / Confirmed Internal hemorrhoids / SNOMED CT 621337528 / Confirmed Intestinal metaplasia of stomach / SNOMED CT 517986817 / Confirmed Low vitamin B12 level / SNOMED CT 0782295593 / Confirmed Mixed incontinence / SNOMED CT 08864556 / Confirmed Mixed stress and urge urinary incontinence / SNOMED CT 8494892956 / Confirmed Nocturia / SNOMED CT 739965359 / Confirmed Obesity / ICD-9-CM 278.00 / Possible Shoulder strain / SNOMED CT 622770274 / Confirmed Sleep apnea / SNOMED CT 976767697 / Confirmed USES CPAP Stress incontinence / SNOMED CT 522045939 / Confirmed TMJ (temporomandibular joint disorder) / SNOMED CT 18949647 / Confirmed Urge incontinence / SNOMED CT 829031405 / Confirmed (more content not included)... Normal [facility] Comment on above: Result Comment: Elec tronically Signed By: Danny Anesthesiology (), Obie Tyler\.br\Date and Time Signed: 09/16/23 13:35 EDT CBC with Diffon 08-20-2023 Abs. Basophil 0.01 k/uL Normal 0.00-0.20 [facility] Comment on above: Performed By: #### T SHX, ZFAST, CP, MG, CDP #### [facility] [address] [place] [address] Train Gateman: Angelito Muir MD #### LIPR #### [address] [address] Train Gateman: Ambrose Moura MD Abs.Imm.Granulocyte 0.04 k/uL Normal 0.00-0.30 [facility] Comment on above: Performed By: #### T SHX, ZFAST, CP, MG, CDP #### [facility] [address] [place] [address] Train Gateman: Angelito Muir MD #### LIPR #### [address] [address] Train Gateman: Ambrose Moura MD Abs.Neutrophil (Seg) 1.95 k/uL Low 2.5-7.0 [facility] Comment on above: Performed By: #### T SHX, ZFAST, CP, MG, CDP #### [facility] [address] [place], [place] [id number] Train Gateman: Angelito Muir MD #### LIPR #### [address] [id number] Train Gateman: Ambrose Moura MD Basophils/100 WBC (Bld) 0 % Normal 0-2 [facility] Comment on above: Performed By: #### T SHX, ZFAST, CP, MG, CDP #### [facility] [address] [place], [place] [id number] Train Gateman: Angelito Muir MD #### LIPR #### [address] [id number] Train Gateman: Ambrose Moura MD Eosinophils (Bld) [#/Vol] 0.09 10*3/uL Normal 0.00-0.40 [facility] Comment on above: Performed By: #### T SHX, ZFAST, CP, MG, CDP #### [facility] [address] [place], [place] [id number] Train Gateman: Angelito Muir MD #### LIPR #### [address] [id number] Train Gateman: Ambrose Moura MD Eosinophils/100 WBC (Bld) 3 % Normal 0-5 [facility] Comment on above: Performed By: #### T SHX, ZFAST, CP, MG, CDP #### [facility] [address] [place], [place] [id number] Train Gateman: Angelito Muir MD #### LIPR #### [address] [id number] Train Gateman: Ambrose Moura MD Erythrocyte distribution width (RBC) [Ratio] 13.8 % Normal 12.1-15.2 [facility] Comment on above: Performed By: #### T SHX, ZFAST, CP, MG, CDP #### [facility] [address] [place], [place] [id number] Train Gateman: Angelito Muir MD #### LIPR #### [address] [id number] Train Gateman: Ambrose Moura MD Hematocrit (Bld) [Volume fraction] 34.7 % Low 36.0-46.0 [facility] Comment on above: Performed By: #### T SHX, ZFAST, CP, MG, CDP #### [facility] [address] [place] [address] Train Gateman: Angelito Muir MD #### LIPR #### [address] [id number] Train Gateman: Ambrose Moura MD Hemoglobin (Bld) [Mass/Vol] 11.4 g/dL Low 12.0-16.0 [facility] Comment on above: Performed By: #### T SHX, ZFAST, CP, MG, CDP #### [facility] [address] [place] [id number] Train Gateman: Angelito Muir MD #### LIPR #### [address] [id number] Train Gateman: Ambrose Moura MD Immature granulocytes/100 WBC (Bld) 1 % Normal 0-5 [facility] Comment on above: Performed By: #### T SHX, ZFAST, CP, MG, CDP #### [facility] [address] [place], [place] 1186[address] Train Gateman: Angelito Muir MD #### LIPR #### [address] [id number] Train Gateman: Ambrose Moura MD Lymphocytes (Bld) [#/Vol] 1.02 10*3/uL Normal 1.00-4.80 [facility] Comment on above: Performed By: #### T SHX, ZFAST, CP, MG, CDP #### [facility] [address] [place], [place] 82627[address] Train Gateman: Angelito Muir MD #### LIPR #### [address] [id number] Train Gateman: Ambrose Moura MD Lymphocytes/100 WBC (Bld) 30 % Normal 15-40 [facility] Comment on above: Performed By: #### T SHX, ZFAST, CP, MG, CDP #### [facility] [address] [place] [address] Train Gateman: Angelito Muir MD #### LIPR #### [place] [address] Train Gateman: Ambrose Moura MD MCH (RBC) [Entitic mass] 30.9 pg Normal 26.0-34.0 [facility] Comment on above: Performed By: #### T SHX, ZFAST, CP, MG, CDP #### [facility] [address] [place] [address] Train Gateman: Angelito Muir MD #### LIPR #### [place] [address] Train Gateman: Ambrose Moura MD MCHC (RBC) [Mass/Vol] 32.9 g/dL Normal 31.0-37.0 [facility] Comment on above: Performed By: #### T SHX, ZFAST, CP, MG, CDP #### [facility] [address] [place] [address] Train Gateman: Angelito Muir MD #### LIPR #### [address] [id number] Train Gateman: Ambrose Moura MD MCV (RBC) [Entitic vol] 94.0 fL Normal 80.0-100.0 [facility] Comment on above: Performed By: #### T SHX, ZFAST, CP, MG, CDP #### [facility] [address] [place] [address] Train Gateman: Angelito Muir MD #### LIPR #### [address] [id number] Train Gateman: Ambrose Moura MD Monocytes (Bld) [#/Vol] 0.34 10*3/uL Normal 0.00-1.00 [facility] Comment on above: Performed By: #### T SHX, ZFAST, CP, MG, CDP #### [facility] [address] [place], [place] 13528[address] Train Gateman: Angelito Muir MD #### LIPR #### [address] [address] Train Gateman: Ambrose Moura MD Monocytes/100 WBC (Bld) 10 % High 4-8 [facility] Comment on above: Performed By: #### T SHX, ZFAST, CP, MG, CDP #### [facility] [address] [place], [place] 0646[address] Train Gateman: Angelito Muir MD #### LIPR #### [address] [address] Train Gateman: Ambrose Moura MD Neutrophil (Seg) 56 % Normal 47-75 [facility] Comment on above: Performed By: #### T SHX, ZFAST, CP, MG, CDP #### [facility] [address] [place], [place] 91034[address] Train Gateman: Angelito Muir MD #### LIPR #### [address] [id number] Train Gateman: Ambrose Moura MD Platelet mean volume (Bld) [Entitic vol] 9.8 fL Normal 6.0-12.0 [facility] Comment on above: Performed By: #### T SHX, ZFAST, CP, MG, CDP #### [facility] [address] [place], [place] 1259[address] Train Gateman: Angelito Muir MD #### LIPR #### [address] [phone] Train Gateman: Ambrose Moura MD Platelets (Bld) [#/Vol] 172 10*3/uL Normal 140-450 [facility] Comment on above: Performed By: #### T SHX, ZFAST, CP, MG, CDP #### [facility] [address] [place], [place] 6655490 Train Gateman: Angelito Muir MD #### LIPR #### [address] [id number] Train Gateman: Ambrose Moura MD RBC (Bld) [#/Vol] 3.69 10*6/uL Low 4.00-5.20 [facility] Comment on above: Performed By: #### T SHX, ZFAST, CP, MG, CDP #### [facility] [address] [place], [place] [id number] Train Gateman: Angelito Muir MD #### LIPR #### [address] [id number] Train Gateman: Ambrose Moura MD WBC (Bld) [#/Vol] 3.5 10*3/uL Normal 3.5-11.0 [facility] Comment on above: Performed By: #### T SHX, ZFAST, CP, MG, CDP #### [facility] [address] [place], [place] 41950[address] Train Gateman: Angelito Muir MD #### LIPR #### [place] [address] [place], [place] 8209508 Train Gateman: Ambrose Moura MD Comp Metabolic Profon 2023 Albumin [Mass/Vol] 4.0 g/dL Normal 3.5-5.2 [facility] Comment on above: Performed By: #### T SHX, ZFAST, CP, MG, CDP #### [facility] [address] [place], [place] [phone] Train Gateman: Angelito Muir MD #### LIPR #### [address] [id number] Train Gateman: Ambrose Moura MD Alkaline Phos 70 U/L Normal 35-104 [facility] Comment on above: Performed By: #### T SHX, ZFAST, CP, MG, CDP #### [facility] [address] [place], [place] [phone] Train Gateman: Angelito Muir MD #### LIPR #### [address] [id number] Train Gateman: Ambrose Moura MD ALT [Catalytic activity/Vol] 18 U/L Normal 5-33 [facility] Comment on above: Performed By: #### T SHX, ZFAST, CP, MG, CDP #### [facility] [address] [place], [place] 2160690 Train Gateman: Angelito Muir MD #### LIPR #### [address] [id number] Train Gateman: Ambrose Moura MD Anion gap [Moles/Vol] 11 mmol/L Normal 9-17 [facility] Comment on above: Performed By: #### T SHX, ZFAST, CP, MG, CDP #### [facility] [address] [place], [place] [phone] Train Gateman: Angelito Muir MD #### LIPR #### [address] [id number] Train Gateman: Ambrose Moura MD AST [Catalytic activity/Vol] 17 U/L Normal <32 [facility] Comment on above: Performed By: #### T SHX, ZFAST, CP, MG, CDP #### [facility] [address] [place], [place] [phone] Train Gateman: Angelito Muir MD #### LIPR #### [address] [id number] Train Gateman: Ambrose Moura MD Bilirubin [Mass/Vol] 0.2 mg/dL Low 0.3-1.2 [facility] Comment on above: Performed By: #### T SHX, ZFAST, CP, MG, CDP #### [facility] [address] [place], [place] 1270290 Train Gateman: Angelito Muir MD #### LIPR #### [address] [id number] Train Gateman: Ambrose Moura MD BUN/CRE Ratio 27 High 9-20 [facility] Comment on above: Performed By: #### T SHX, ZFAST, CP, MG, CDP #### [facility] [address] [place], [place] [id number] Train Gateman: Angelito Muir MD #### LIPR #### [address] [id number] Train Gateman: Ambrose Moura MD Calcium [Mass/Vol] 8.7 mg/dL Normal 8.6-10.4 [facility] Comment on above: Performed By: #### T SHX, ZFAST, CP, MG, CDP #### [facility] [address] [place] [address] Train Gateman: Angelito Muir MD #### LIPR #### [facility] [address] [place], [place] 4698[address] Train Gateman: Ambrose Moura MD Chloride [Moles/Vol] 104 mmol/L Normal 98-107 [facility] Comment on above: Performed By: #### T SHX, ZFAST, CP, MG, CDP #### [facility] [address] [place] [address] Train Gateman: Angelito Muir MD #### LIPR #### [place] [place] [address] Train Gateman: Ambrose Moura MD CO2 [Moles/Vol] 24 mmol/L Normal 20-31 [facility] Comment on above: Performed By: #### T SHX, ZFAST, CP, MG, CDP #### [facility] [address] [place] [address] Train Gateman: Angelito Muir MD #### LIPR #### [facility] [address] [place] [address] Train Gateman: Ambrose Moura MD Creatinine [Mass/Vol] 1.1 mg/dL High 0.5-0.9 [facility] Comment on above: Performed By: #### T SHX, ZFAST, CP, MG, CDP #### [facility] [address] [place] [address] Train Gateman: Angelito Muir MD #### LIPR #### [place] [address] [place] [address] Train Gateman: Ambrose Moura MD GFR/1.73 sq M.predicted among non-blacks MDRD (S/P/Bld) [Vol rate/Area] 51 mL/min/{1.73_m2} Low >60 [facility] Comment on above: Result Comment: These results are not intended for use in patients <18 years of age. eGFR results are calculated without a race factor using the 2020 CKD-EPI equation. Careful clinical correlation is recommended, particularly when comparing to results calculated using previous equations. The CKD-EPI equation is less accurate in patients with extremes of muscle mass, extra-renal metabolism of creatine, excessive creatine ingestion, or following therapy that affects renal tubular secretion. Performed By: #### T SHX, ZFAST, CP, MG, CDP #### [facility] [address] [place] [address] Train Gateman: Angelito Muir MD #### LIPR #### [place] [place] [address] Train Gateman: Ambrose Moura MD Glucose [Mass/Vol] 102 mg/dL High 70-99 [facility] Comment on above: Performed By: #### T SHX, ZFAST, CP, MG, CDP #### [facility] [address] [place] [address] Train Gateman: Angelito Muir MD #### LIPR #### [place] [address] [place] [address] Train Gateman: Ambrose Moura MD Potassium [Moles/Vol] 4.1 mmol/L Normal 3.7-5.3 [facility] Comment on above: Performed By: #### T SHX, ZFAST, CP, MG, CDP #### [facility] [address] [place] [address] Train Gateman: Angelito Muir MD #### LIPR #### [place] [place] [address] Train Gateman: Ambrose Moura MD Protein [Mass/Vol] 6.3 g/dL Low 6.4-8.3 [facility] Comment on above: Performed By: #### T SHX, ZFAST, CP, MG, CDP #### [facility] [address] [place] [address] Train Gateman: Angelito Muir MD #### LIPR #### [place] [address] [place], [place] [phone] Train Gateman: Ambrose Moura MD Sodium [Moles/Vol] 139 mmol/L Normal 135-144 [facility] Comment on above: Performed By: #### T SHX, ZFAST, CP, MG, CDP #### [facility] [address] [place] [address] Train Gateman: Angelito Muir MD #### LIPR #### [address] [id number] Train Gateman: Ambrose Moura MD Urea nitrogen [Mass/Vol] 30 mg/dL High 8-23 [facility] Comment on above: Performed By: #### T SHX, ZFAST, CP, MG, CDP #### [facility] [address] [place] [address] Train Gateman: Angelito Muir MD #### LIPR #### [address] [id number] Train Gateman: Ambrose Moura MD Lipid Profileon 08-20-2023 Cholesterol [Mass/Vol] 112 mg/dL Normal 0-199 [facility] Comment on above: Result Comment: Cholesterol Guidelines: <200 Desirable 200-240 Borderline >240 Undesirable Performed By: #### B MP, TROPI, CBC, TSH #### [facility] [address] [place] [address] Train Gateman: Angelito Muir MD Cholesterol in HDL [Mass/Vol] 39 mg/dL Low >40 [facility] Comment on above: Result Comment: HDL Guidelines: <40 Undesirable 40-59 Borderline >59 Desirable Performed By: #### B MP, TROPI, CBC, TSH #### [facility] [address] [place] [address] Train Gateman: Angelito Muir MD Cholesterol in LDL [Mass/Vol] 58 mg/dL Normal 0-100 [facility] Comment on above: Result Comment: LDL Guidelines: <100 Desirable 100-129 Near to/above Desirable 130-159 Borderline >159 Undesirable Direct (measured) LDL and calculated LDL are not interchangeable tests. Performed By: #### B MP, TROPI, CBC, TSH #### [facility] [address] [place], [place] [id number] Train Gateman: Angelito Muir MD Cholesterol in VLDL [Mass/Vol] 15 mg/dL Normal [facility] Comment on above: Performed By: #### B MP, TROPI, CBC, TSH #### [facility] [address], [place] [id number] Train Gateman: Angelito Muir MD Cholesterol.total/Cho lesterol in HDL [Mass ratio] 3.0 {ratio} Normal [facility] Comment on above: Performed By: #### B MP, TROPI, CBC, TSH #### [facility] [address] [place] [address] Train Gateman: Angelito Muir MD Triglyceride [Mass/Vol] 77 mg/dL Normal <150 [facility] Comment on above: Result Comment: Triglyceride Guidelines: <150 Desirable 150-199 Borderline 200-499 High >499 Very high Based on AHA Guidelines for fasting triglyceride, March 2012. Performed By: #### B MP, TROPI, CBC, TSH #### [facility] [address] [place] [address] Train Gateman: Angelito Muir MD Magnesiumon 08-20-2023 Magnesium [Mass/Vol] 2.1 mg/dL Normal 1.6-2.6 [facility] Comment on above: Performed By: #### T SHX, ZFAST, CP, MG, CDP #### [facility] [address] [place], [place] [id number] Train Gateman: Angelito Muir MD #### LIPR #### [facility] [address] [place], [place] [id number] Train Gateman: Ambrose Moura MD Patient fasting?on 4 Patient fasting? YES Normal [facility] Comment on above: Performed By: #### T SHX, ZFAST, CP, MG, CDP #### [facility] [address] [place], [place] [phone] Train Gateman: Angelito Muir MD #### LIPR #### [address] [place], [place] [phone] Train Gateman: Ambrose Moura MD TSH w/reflex to FT4on 2023 Thyroid Stim. Horm. 1.88 uIU/mL Normal 0.30-5.00 [facility] Comment on above: Performed By: #### T SHX, ZFAST, CP, MG, CDP #### [facility] [address], [place] [phone] Train Gateman: Angelito Muir MD #### LIPR #### [address] [place] [address] Train Gateman: Ambrose Moura MD XR CHEST (2 VW)on 08-20-2023 XR CHEST (2 VW) EXAM: XR CHEST (2 VW ) HISTORY: Essential hypertension COMPARISON: 02/27/2023. IMPRESSION: FINDINGS/IMPRESSION: 1. Normal sized heart. 2. Clear lungs. Interpreted by: Ishmael Valentin Jr., MD Signed by: Ishmael Valentin Jr., MD 08/20/23 Final result Normal [facility] COVID-19, Rapidon 07-01-2023 Interpretation and review of laboratory results Abnormal [facility] SARS-CoV-2 (COVID-19) RdRp gene JUAQUIN+probe Ql (Resp) Detected Abnormal Not Detected [facility] Comment on above: Rapid NAAT: The specimen is POSITIVE for SARS-Cov-2, the novel coronavirus associated with COVID-19. This test has been authorized by the FDA under an Emergency Use Authorization (EUA) for use by authorized laboratories. The ID NOW COVID-19 assay is designed to detect the virus that causes COVID-19 in patients with signs and symptoms of infection who are suspected of COVID-19. An individual without symptoms of COVID-19 and who is not shedding SARS-CoV-2 virus would expect to have a negative (not detected) result in this assay. Fact sheet for Healthcare Providers: https://www.fda.gov/media/059880/download Fact sheet for Patients: https://www.fda.gov/media/732070/download Methodology: Isothermal Nucleic Acid Amplification Results reported to the appropriate Health Department Specimen Description .NASOPHARYNGEAL SWAB [facility] Flu A/B Ag Detectionon 07-01 Flu A Ag Detection Negative Normal [facility] Comment on above: Result Comment: for Influenza A Antigen Performed By: #### B MP, TROPI, CBC, TSH #### [facility] [address] [place] [address] Train Gateman: Angelito Muir MD Flu B Ag Detection Negative Normal [facility] Comment on above: Result Comment: for Influenza B Antigen. Performed By: #### B MP, TROPI, CBC, TSH #### [facility] [address] [place] [address] Train Gateman: Angelito Muir MD Rapid influenza A/B antigens on 07-01-2023 FLUAV Ag Ql (Unsp spec) Negative NEGATIVE [facility] Comment on above: for Influenza A Anti gen FLUBV Ag Ql (Unsp spec) Negative NEGATIVE [facility] Comment on above: for Influenza B Anti gen. [facility] [id number] 07-01-2023 SARS-CoV-2 (COVID-19) RNA JUAQUIN+probe Ql (Unsp spec) Detected Abnormal NOTDET [facility] Comment on above: Result Comment: Rapid NAAT: The specimen is POSITIVE for SARS-Cov-2, the novel coronavirus associated with COVID-19. This test has been authorized by the FDA under an Emergency Use Authorization (EUA) for use by authorized laboratories. The ID NOW COVID-19 assay is designed to detect the virus that causes COVID-19 in patients with signs and symptoms of infection who are suspected of COVID-19. An individual without symptoms of COVID-19 and who is not shedding SARS-CoV-2 virus would expect to have a negative (not detected) result in this assay. Fact sheet for Healthcare Providers: https://www.fda.gov/media/643470/download Fact sheet for Patients: https://www.fda.gov/media/169490/download Methodology: Isothermal Nucleic Acid Amplification Results reported to the appropriate Health Department Performed By: #### B MP, TROPI, CBC, TSH #### [facility] [address] [place] [address] Train Gateman: Angelito Muir MD Alanine aminotransferase [En zymatic activity/volume] in Serum or PlasmaOrdered By: Obie Hylton on 05-27-2023 ALT [Catalytic activity/Vol] 9 U/L Normal 7-52 [facility] Comment on above: Performed By: #### C 4, CH50, C3 #### [facility] , #### ESR, CBC, ADDONUAPLUS, CMP #### [address] Albumin [Mass/volume] in Ser um or Plasma by Bromocresol green (BCG) dye binding methoOrdered By: Obie Hylton on 05-27-2023 Albumin BCG dye [Mass/Vol] 3.9 g/dL 3.5-5.7 [facility] Alkaline phosphatase [Enzyma tic activity/volume] in Serum or PlasmaOrdered By: Obei Hylton on 05-27-2023 ALP [Catalytic activity/Vol] 51 U/L Normal 34-104 [facility] Comment on above: Result Comment: PERF ORMED BY: [place] [address] PATHOLOGIST SAFETY LAMP KEEPER MANUEL PABON M.D. Performed By: #### C 4, CH50, C3 #### [facility] , #### ESR, CBC, ADDONUAPLUS, CMP #### [address] Aspartate aminotransferase [ Enzymatic activity/volume] in Serum or PlasmaOrdered By: Obie Hylton on 05-27-2023 AST [Catalytic activity/Vol] 14 U/L Normal 13-39 [facility] Comment on above: Performed By: #### C 4, CH50, C3 #### [facility] , #### ESR, CBC, ADDONUAPLUS, CMP #### [address] Automated basophil %Ordered By: Obie Hylton on 05-27-2023 Basophils/100 WBC (Bld) 0.4 % Normal . [facility] Comment on above: Performed By: #### C 3, CH50, C4 #### [facility] , #### ESR, CMP, CBC, ADDONUAPLUS #### [address] Automated basophil countOrde red By: Obie Hylton on 05-27-2023 Basophils (Bld) [#/Vol] 0.0 10*3/uL Normal 0.0-0.2 [facility] Comment on above: Performed By: #### C 3, CH50, C4 #### [facility] , #### ESR, CMP, CBC, ADDONUAPLUS #### [address] Automated blood monocyte cou ntOrdered By: Obie Hylton on 05-27-2023 Monocytes (Bld) [#/Vol] 0.3 10*3/uL Normal 0.0-0.8 [facility] Comment on above: Performed By: #### C 3, CH50, C4 #### [facility] , #### ESR, CMP, CBC, ADDONUAPLUS #### [address] Automated eosinophil %Ordere d By: Obie Ramirezrow on 05-27-2023 Eosinophils/100 WBC (Bld) 2.0 % Normal . [facility] Comment on above: Performed By: #### C 3, CH50, C4 #### [facility] , #### ESR, CMP, CBC, ADDONUAPLUS #### [address] Automated eosinophil countOr dered By: Obie Hylton on 05-27-2023 Eosinophils (Bld) [#/Vol] 0.1 10*3/uL Normal 0.0-0.45 [facility] Comment on above: Performed By: #### C 3, CH50, C4 #### [facility] , #### ESR, CMP, CBC, ADDONUAPLUS #### [address] Automated erythrocytes count in urine sediment (number/area)Ordered By: Obie Hylton on 05-27-2023 RBC Auto (Urine sed) [#/Area] 0-1 [HPF] 0-4 [facility] Automated leukocytes count i n urine sediment (number/area)Ordered By: Obie Ramirezrow on 05-27-2023 WBC Auto (Urine sed) [#/Area] 0-1 [HPF] 0-4 [facility] Automated monocyte %Ordered By: Obie Hylton on 05-27-2023 Monocytes/100 WBC (Bld) 8.4 % Normal . [facility] Comment on above: Performed By: #### C 3, CH50, C4 #### [facility] , #### ESR, CMP, CBC, ADDONUAPLUS #### [address] Automated neutrophil %Ordere d By: Obie Hylton on 05-27-2023 Neutrophils/100 WBC (Bld) 61.9 % Normal . [facility] Comment on above: Performed By: #### C 3, CH50, C4 #### [facility] , #### ESR, CMP, CBC, ADDONUAPLUS #### [address] Automated urine color determ inationOrdered By: Obie Hylton on 05-27-2023 Color (U) Yellow Normal Yellow [facility] Comment on above: Order Comment: Name Collection Type:: Clean-Voided Midstream Performed By: #### C 3, CH50, C4 #### [facility] , #### ESR, CMP, CBC, ADDONUAPLUS #### [facility] [address] Bilirubin Test strip Ql (U)O rdered By: Obie Hylton on 05-27-2023 Bilirubin Ql (U) Negative Negative [facility] Bilirubin.total [Mass/volume ] in Serum or PlasmaOrdered By: Obie Hylton on 05-27-2023 Bilirubin [Mass/Vol] 0.5 mg/dL Normal 0.3-1.0 [facility] Comment on above: Performed By: #### C 4, CH50, C3 #### [facility] , #### ESR, CBC, ADDONUAPLUS, CMP #### [facility] [address] Calcium [Mass/volume] in Ser um or PlasmaOrdered By: Obei Hylton on 05-27-2023 Calcium [Mass/Vol] 8.9 mg/dL Normal 8.6-10.3 [facility] Comment on above: Performed By: #### C 4, CH50, C3 #### [facility] , #### ESR, CBC, ADDONUAPLUS, CMP #### [facility] [address] Carbon dioxide, total [Moles /volume] in Serum or PlasmaOrdered By: Obie Hylton on 05-27-2023 CO2 [Moles/Vol] 27.0 mmol/L Normal 21.0-31.[address] [facility] Comment on above: Performed By: #### C 4, CH50, C3 #### [facility] , #### ESR, CBC, ADDONUAPLUS, CMP #### [address] Chloride [Moles/volume] in S liat or PlasmaOrdered By: Obie Hylton on 05-27-2023 Chloride [Moles/Vol] 112 mmol/L High 98-107 [facility] Comment on above: Performed By: #### C 4, CH50, C3 #### [facility] , #### ESR, CBC, ADDONUAPLUS, CMP #### [address] Complement C3on 05-27-2023 Complement C3 110 mg/dL Normal 82-167 [facility] Comment on above: Result Comment: Perf ormed at: [facility] [id number] Train Gateman: Usman Draper PhD, Phone: [phone] Performed By: #### C 3, CH50, C4 #### [facility] , #### ESR, CMP, CBC, ADDONUAPLUS #### [address] Complement C4on 05-27-2023 Complement C4 25 mg/dL Normal 12-38 [facility] Comment on above: Result Comment: PERF ORMED BY: [place] [address] PATHOLOGIST SAFETY LAMP KEEPER MANUEL PABON M.D. Performed By: #### C 3, CH50, C4 #### [facility] , #### ESR, CMP, CBC, ADDONUAPLUS #### [address] Complement Total (CH50)on Complement Total (CH50) 58 Normal >41 [facility] Comment on above: Result Comment: Age Male Female 1 - 30 days Not Estab. Not Estab. 31 days - 6 months >32 >20 7 months - 17 years >39 >39 >17 years >41 >41 NOTE: The adult ( >17 years ) reference interval range is used to flag abnormals on this report. If the patient is 17 years old or younger, use the table above to determine out of range values. Performed at: - [facility] [id number] Train Gateman: Usman Draper PhD, Phone: [phone] PERFORMED BY: [place] [address] PATHOLOGIST SAFETY LAMP KEEPER MANUEL PABON M.D. Performed By: #### C 3, CH50, C4 #### [facility] , #### ESR, CMP, CBC, ADDONUAPLUS #### [address] Complete Blood Count Auto Di ffon 05-27-2023 Mean Corpuscular HGB Conc 33.9 g/dL Normal 32.0-35.0 [facility] Comment on above: Performed By: #### C 3, CH50, C4 #### [facility] , #### ESR, CMP, CBC, ADDONUAPLUS #### [address] NRBC% 0.2 /100{WBC} Normal 0-0.5 [facility] Comment on above: Performed By: #### C 3, CH50, C4 #### [facility] , #### ESR, CMP, CBC, ADDONUAPLUS #### [address] Comprehensive Metabolic Pane [facility] 05-27-2023 Albumin [Mass/Vol] 3.9 g/dL Normal 3.5-5.7 [facility] Comment on above: Performed By: #### C 4, CH50, C3 #### [facility] , #### ESR, CBC, ADDONUAPLUS, CMP #### [address] GFR/1.73 sq M.predicted MDRD (S/P/Bld) [Vol rate/Area] 46.333 mL/min/{1.73_m2} Normal [facility] Comment on above: Performed By: #### C 4, CH50, C3 #### [facility] , #### ESR, CBC, ADDONUAPLUS, CMP #### [address] Creatinine [Mass/volume] in Serum or PlasmaOrdered By: Obie Hylton on 05-27-2023 Creatinine [Mass/Vol] 1.20 mg/dL Normal 0.60-1.20 [facility] Comment on above: Performed By: #### C 4, CH50, C3 #### [facility] , #### ESR, CBC, ADDONUAPLUS, CMP #### [place] [address] [place] Dipstick and Microscopicon 1 07-27-2022 Appearance (U) Cloudy Critically abnormal Clear [facility] Comment on above: Order Comment: Name Collection Type:: Clean-Voided Midstream Performed By: #### C 3, CH50, C4 #### [facility] , #### ESR, CMP, CBC, ADDONUAPLUS #### [address] Bacteria,Urine None Seen Normal None Seen [facility] Comment on above: Order Comment: Name Collection Type:: Clean-Voided Midstream Performed By: #### C 3, CH50, C4 #### [facility] , #### ESR, CMP, CBC, ADDONUAPLUS #### [facility] [address] [place] [address] [place] Bilirubin,Urine Negative Normal Negative [facility] Comment on above: Order Comment: Name Collection Type:: Clean-Voided Midstream Performed By: #### C 3, CH50, C4 #### [facility] , #### ESR, CMP, CBC, ADDONUAPLUS #### [facility] [address] [place] [address] [place] Glucose Ql (U) Normal Normal Normal [facility] Comment on above: Order Comment: Name Collection Type:: Clean-Voided Midstream Performed By: #### C 3, CH50, C4 #### [facility] , #### ESR, CMP, CBC, ADDONUAPLUS #### [address] Hyaline Casts,Urine 0-8 Normal 0-8 [facility] Comment on above: Order Comment: Name Collection Type:: Clean-Voided Midstream Result Comment: PERF ORMED BY: [place] [address] PATHOLOGIST SAFETY LAMP KEEPER MANUEL PABON M.D. Performed By: #### C 3, CH50, C4 #### [facility] , #### ESR, CMP, CBC, ADDONUAPLUS #### [address] Ketones Ql (U) Negative Normal Negative [facility] Comment on above: Order Comment: Name Collection Type:: Clean-Voided Midstream Performed By: #### C 3, CH50, C4 #### [facility] , #### ESR, CMP, CBC, ADDONUAPLUS #### [address] Leukocyte esterase Test strip Ql (U) Negative Normal Negative [facility] Comment on above: Order Comment: Name Collection Type:: Clean-Voided Midstream Performed By: #### C 3, CH50, C4 #### [facility] , #### ESR, CMP, CBC, ADDONUAPLUS #### [place] [address] [place] Nitrite,Urine Negative Normal Negative [facility] Comment on above: Order Comment: Name Collection Type:: Clean-Voided Midstream Performed By: #### C 3, CH50, C4 #### [facility] , #### ESR, CMP, CBC, ADDONUAPLUS #### [address] Occult Blood,Urine Trace High Negative [facility] Comment on above: Order Comment: Name Collection Type:: Clean-Voided Midstream Performed By: #### C 3, CH50, C4 #### [facility] , #### ESR, CMP, CBC, ADDONUAPLUS #### [address] Protein,Urine Negative Normal Negative [facility] Comment on above: Order Comment: Name Collection Type:: Clean-Voided Midstream Performed By: #### C 3, CH50, C4 #### [facility] , #### ESR, CMP, CBC, ADDONUAPLUS #### [address] RBC LM.HPF (Urine sed) [#/Area] 0 /[HPF] Normal 0-4 [facility] Comment on above: Order Comment: Name Collection Type:: Clean-Voided Midstream Performed By: #### C 3, CH50, C4 #### [facility] , #### ESR, CMP, CBC, ADDONUAPLUS #### [address] Specificy [place],Urine 1.017 Normal 1.001-1.03 0 [facility] Comment on above: Order Comment: Name Collection Type:: Clean-Voided Midstream Performed By: #### C 3, CH50, C4 #### [facility] , #### ESR, CMP, CBC, ADDONUAPLUS #### [address] Squamous Epithelial Cell,Urine 1-2 Normal 0-2 [facility] Comment on above: Order Comment: Name Collection Type:: Clean-Voided Midstream Performed By: #### C 3, CH50, C4 #### [facility] , #### ESR, CMP, CBC, ADDONUAPLUS #### [address] Urobilinogen,Urine Normal Normal Normal [facility] Comment on above: Order Comment: Name Collection Type:: Clean-Voided Midstream Performed By: #### C 3, CH50, C4 #### [facility] , #### ESR, CMP, CBC, ADDONUAPLUS #### [address] WBC LM.HPF (Urine sed) [#/Area] 0 /[HPF] Normal 0-4 [facility] Comment on above: Order Comment: Name Collection Type:: Clean-Voided Midstream Performed By: #### C 3, CH50, C4 #### [facility] , #### ESR, CMP, CBC, ADDONUAPLUS #### [address] Erythrocyte Sedimentation Ra heather 05-27-2023 ESR (Bld) [Velocity] 17 mm/h Normal 0-29 [facility] Comment on above: Result Comment: PERF ORMED BY: [place] [address] PATHOLOGIST SAFETY LAMP KEEPER MANUEL PABON M.D. Performed By: #### C 3, CH50, C4 #### [facility] , #### ESR, CMP, CBC, ADDONUAPLUS #### [address] Erythrocyte distribution wid th [Ratio] by Automated countOrdered By: Obie Hylton on 05-27-2023 Erythrocyte distribution width (RBC) [Ratio] 14.9 % Normal 11.9-15.3 [facility] Comment on above: Performed By: #### C 3, CH50, C4 #### [facility] , #### ESR, CMP, CBC, ADDONUAPLUS #### [address] Erythrocyte sedimentation ra te by Photometric methodOrdered By: Obie Hylton on 05-27-2023 ESR Photometric method (Bld) [Velocity] 17 mm/hr 0-29 [facility] Erythrocytes [#/volume] in B lood by Automated countOrdered By: Obie Hylton on 05-27-2023 RBC (Bld) [#/Vol] 3.68 10*6/uL Normal 3.60-5.00 [facility] Comment on above: Performed By: #### C 3, CH50, C4 #### [facility] , #### ESR, CMP, CBC, ADDONUAPLUS #### [facility] [address] [place] [address] [place] Glucose [Mass/volume] in Ser um or PlasmaOrdered By: Obie Ramirezrow on 05-27-2023 Glucose [Mass/Vol] 91 mg/dL Normal 70-100 [facility] Comment on above: ADA recommended refe rence rangeRandom Glucose Reference Range is dependent on time and content of last meal. Glucose of more than 200 mg/dL in a nonstressed, ambulatory subject supports the diagnosis of Diabetes Mellitus. Result Comment: Panacea om Glucose Reference Range is dependent on time and content of last meal. Glucose of more than 200 mg/dL in a nonstressed, ambulatory subject supports the diagnosis of Diabetes Mellitus. ADA recommended reference range Performed By: #### C 4, CH50, C3 #### [facility] , #### ESR, CBC, ADDONUAPLUS, CMP #### [facility] [address] [place] [address] [place] Hematocrit [Volume Fraction] of Blood by Automated countOrdered By: Obie Ramirezrow on 05-27-2023 Hematocrit (Bld) [Volume fraction] 34.4 % Normal 34.0-46.4 [facility] Comment on above: Performed By: #### C 3, CH50, C4 #### [facility] , #### ESR, CMP, CBC, ADDONUAPLUS #### [facility] [address] [place] [address] [place] Hemoglobin [Mass/volume] in BloodOrdered By: Obie Hylton on 05-27-2023 Hemoglobin (Bld) [Mass/Vol] 11.7 g/dL Low 11.8-15.4 [facility] Comment on above: Performed By: #### C 3, CH50, C4 #### [facility] , #### ESR, CMP, CBC, ADDONUAPLUS #### [facility] [address] [place] [address] Ketones Auto test strip (U) [Mass/Vol]Ordered By: Obie Ramirezrow on 05-27-2023 Ketones (U) [Mass/Vol] Negative Negative [facility] - UrinalysisOrder ed By: Obie Ramirezrow on 05-27-2023 Hyaline casts LM Ql (Urine sed) 0-8 [LPF] 0-8 [facility] Leukocytes [#/volume] correc pepito for nucleated erythrocytes in Blood by Automated counOrdered By: Obie Ramirezrow on 05-27-2023 WBC corrected for nucl RBC Auto (Bld) [#/Vol] 3.9 10*3/uL 3.8-11.6 [facility] Leukocytes [#/volume] in Blo od by Automated countOrdered By: Obie Hylton on 05-27-2023 WBC (Bld) [#/Vol] 3.9 10*3/uL Normal 3.8-11.6 [facility] Comment on above: Performed By: #### C 3, CH50, C4 #### [facility] , #### ESR, CMP, CBC, ADDONUAPLUS #### [address] Lymphocytes [#/volume] in Bl ood by Automated countOrdered By: Obie Ramirezrow on 05-27-2023 Lymphocytes (Bld) [#/Vol] 1.1 10*3/uL Normal 1.00-4.8 [facility] Comment on above: Performed By: #### C 3, CH50, C4 #### [facility] , #### ESR, CMP, CBC, ADDONUAPLUS #### [address] Lymphocytes/100 leukocytes i n Blood by Automated countOrdered By: Obie Hylton on 05-27-2023 Lymphocytes/100 WBC (Bld) 27.3 % Normal . [facility] Comment on above: Performed By: #### C 3, CH50, C4 #### [facility] , #### ESR, CMP, CBC, ADDONUAPLUS #### [facility] [address] [place] [address] MCH [Entitic mass] by Automa pepito countOrdered By: Obie Hylton on 05-27-2023 MCH (RBC) [Entitic mass] 31.7 pg Normal 24.7-34.3 [facility] Comment on above: Performed By: #### C 3, CH50, C4 #### [facility] , #### ESR, CMP, CBC, ADDONUAPLUS #### [address] MCHC Auto (RBC) [Mass/Vol]Or dered By: Obie Hylton on 05-27-2023 MCHC (RBC) [Mass/Vol] 33.9 g/dL 32.0-35.0 [facility] MCV [Entitic volume] by Auto mated countOrdered By: Obie Hylton on 05-27-2023 MCV (RBC) [Entitic vol] 93.4 fL Normal 80-100 [facility] Comment on above: Performed By: #### C 3, CH50, C4 #### [facility] , #### ESR, CMP, CBC, ADDONUAPLUS #### [address] Neutrophils [#/volume] in Bl ood by Automated countOrdered By: Obie Hylton on 05-27-2023 Neutrophils (Bld) [#/Vol] 2.4 10*3/uL Normal 1.8-7.7 [facility] Comment on above: Performed By: #### C 3, CH50, C4 #### [facility] , #### ESR, CMP, CBC, ADDONUAPLUS #### [facility] [address] [place] [address] Nitrite Test strip Ql (U)Ord ered By: Obie Hylton on 05-27-2023 Nitrite Ql (U) Negative Negative [facility] No Panel InformationOrdered By: Obie Hylton on 05-27-2023 Estimated GFR (CKD-EPI) 46.333 mL/Min [facility] Creatinine Clearance (Chem N/A [facility] Nucleated erythrocytes [Pres ence] in Blood by Automated countOrdered By: Obie Hylton on 05-27-2023 Nucleated RBC Auto Ql (Bld) 0.2 /100{WBC} 0-0.5 [facility] Platelet mean volume [Entiti c volume] in Blood by Automated countOrdered By: Obie Hylton on 05-27-2023 Platelet mean volume (Bld) [Entitic vol] 8.8 fL Normal 6.3-10.7 [facility] Comment on above: Performed By: #### C 3, CH50, C4 #### [facility] , #### ESR, CMP, CBC, ADDONUAPLUS #### [facility] [address] [place] [address] [place] Platelets [#/volume] in Bloo d by Automated countOrdered By: Obie Hylton on 05-27-2023 Platelets (Bld) [#/Vol] 193 10*3/uL Normal 150-450 [facility] Comment on above: Performed By: #### C 3, CH50, C4 #### [facility] , #### ESR, CMP, CBC, ADDONUAPLUS #### [facility] [address] [place] [address] [place] Potassium [Moles/volume] in Serum or PlasmaOrdered By: Obie yHlton on 05-27-2023 Potassium [Moles/Vol] 4.4 mmol/L Normal 3.5-5.1 [facility] Comment on above: Performed By: #### C 4, CH50, C3 #### [facility] , #### ESR, CBC, ADDONUAPLUS, CMP #### [facility] [address] [place] [address] Protein Auto test strip (U) [Mass/Vol]Ordered By: Obie Hylton on 05-27-2023 Protein (U) [Mass/Vol] Negative Negative [facility] Protein [Mass/volume] in Ser um or PlasmaOrdered By: Obie Hylton on 05-27-2023 Protein [Mass/Vol] 6.0 g/dL Low 6.4-8.9 [facility] Comment on above: Performed By: #### C 4, CH50, C3 #### [facility] , #### ESR, CBC, ADDONUAPLUS, CMP #### [address] Serum globulin measurement b y calculation (mass/volume)Ordered By: Obie Hylton on 05-27-2023 Globulin (S) [Mass/Vol] 2.1 g/dL [facility] Comment on above: Performed By: #### C 4, CH50, C3 #### [facility] , #### ESR, CBC, ADDONUAPLUS, CMP #### [address] Serum or plasma albumin/glob ulin mass ratioOrdered By: Obie Hylton on 05-27-2023 Albumin/Globulin [Mass ratio] 1.9 {ratio} [facility] Comment on above: Performed By: #### C 4, CH50, C3 #### [facility] , #### ESR, CBC, ADDONUAPLUS, CMP #### [facility] [address] [place] [address] Serum or plasma anion gap de terminationOrdered By: Obie Hylton on 05-27-2023 Anion gap [Moles/Vol] 8.4 mmol/L Normal 6.0-15.0 [facility] Comment on above: Performed By: #### C 4, CH50, C3 #### [facility] , #### ESR, CBC, ADDONUAPLUS, CMP #### [facility] [address] [place] [address] [place] Sodium [Moles/volume] in Ser um or PlasmaOrdered By: Obie Hylton on 05-27-2023 Sodium [Moles/Vol] 143 mmol/L Normal 136-145 [facility] Comment on above: Performed By: #### C 4, CH50, C3 #### [facility] , #### ESR, CBC, ADDONUAPLUS, CMP #### [facility] [address] [place] [address] Specific gravity Auto test s trip (U) [Rel density]Ordered By: Obie Hylton on 05-27-2023 Specific gravity (U) [Rel density] 1.017 1.001-1.03 0 [facility] Squamous epithelial cells de tection in urine sediment by light microscopyOrdered By: Obie Hylton on 05-27-2023 Epithelial cells.squamous LM Ql (Urine sed) 1-2 [HPF] 0-2 [facility] Urea nitrogen [Mass/volume] in Serum or PlasmaOrdered By: Obie Hylton on 05-27-2023 Urea nitrogen [Mass/Vol] 25 mg/dL Normal 7-25 [facility] Comment on above: Performed By: #### C 4, CH50, C3 #### [facility] , #### ESR, CBC, ADDONUAPLUS, CMP #### [facility] [address] [place] [address] Urine bacteria detection by automated methodOrdered By: Obie Hylton on 05-27-2023 Bacteria Auto Ql (U) None seen None Seen [facility] Urine clarity by refractomet ry automatedOrdered By: Obie Hylton on 05-27-2023 Clarity Refractometry automated (U) Cloudy Clear [facility] Urine glucose measurement by automated test strip (mass/volume)Ordered By: Obie Hylton on 05-27-2023 Glucose Auto test strip (U) [Mass/Vol] Normal mg/dL Normal [facility] Urine hemoglobin detection b y automated test stripOrdered By: Obie Hylton on 05-27-2023 Hemoglobin Auto test strip Ql (U) Trace Negative [facility] Urine leukocyte esterase det ection by automated test stripOrdered By: Obie Hylton on 05-27-2023 Leukocyte esterase Auto test strip Ql (U) Negative Negative [facility] Urine pH measurement by auto mated test stripOrdered By: Obie Hylton on 05-27-2023 pH (U) 5.5 [pH] Normal 5.0-9.0 [facility] Comment on above: Order Comment: Name Collection Type:: Clean-Voided Midstream Performed By: #### C 3, CH50, C4 #### [facility] , #### ESR, CMP, CBC, ADDONUAPLUS #### [facility] [address] Urobilinogen Auto test strip (U) [Mass/Vol]Ordered By: Obie Ramirezrow on 05-27-2023 Urobilinogen (U) [Mass/Vol] Normal mg/dL Normal [facility] Cult,Urineon 05-21-2023 Cult,Urine Specimen Description .CLEAN CATCH URINE Culture ESCHERICHIA COLI 10 to 50,000 CFU/ML Report Status FINAL 05/21/2023 SUSCEPTIBILITY Organism ESCHERICHIA COLI Method GRACE Ampicillin >=32 RESISTANT Cefazolin <=4 SUSCEPTIBLE Cefazolin sensitivity results can be used to predict the effectiveness of oral cephalosporins (eg. Cephalexin) in uncomplicated Urinary Tract Infections due to E. coli, K. pneumoniae, and P. mirabilis Ceftriaxone <=0.25 SUSCEPTIBLE ESBL NEGATIVE Gentamicin <=1 SUSCEPTIBLE Levofloxacin <=0.12 SUSCEPTIBLE Nitrofurantoin <=16 SUSCEPTIBLE Piperacillin/Tazobactam <=4 SUSCEPTIBLE Tobramycin <=1 SUSCEPTIBLE Trimethoprim/Sulfa <=20 SUSCEPTIBLE Susceptible [facility] Comment on above: Performed By: #### B MP, TROPI, CBC, TSH #### [facility] [address] [place] [id number] Train Gateman: Angelito Muir MD ANA WU DIGITAL SCREEN BILA TERALon 05-14-2023 ANA WU DIGITAL SCREEN BILATERAL HISTORY: Screening. Family history of breast carcinoma. TECHNIQUE: Bilateral digital screening mammogram with CAD. Digital breast tomosynthesis imaging. FINDINGS: Two views of each breast show that the breasts are almost entirely fatty. BREAST DENSITY CODE: F Fatty No significant change compared to prior studies, the most recent of 01/31/2022. Suspicious calcifications: None. Suspicious mass: None. (If skin markers were applied, circles represent skin lesions and linear markers represent scars.) ASSESSMENT: BIRADS: 1 - Negative, no evidence of malignancy. Normal interval followup in 12 months. OVERALL ASSESSMENT- NEGATIVE A letter of notification will be sent to the patient regarding the results. Interpreted by: Ishmael Valentin Jr., MD Signed by: Ishmael Valentin Jr., MD 05/14/23 Final result Normal [facility] Follow-Upon 04-11-2023 Follow-Up [id number] Genny Rios 1945 F Date Provider Department Center 04/11/2023 [id number], XU [facility] No family history on file Level of Service:66307 OR OFFICE/OUTPATIENT ESTABLISHED LOW MDM 20-29 MIN Normal [place] Office Visiton 03-28-2023 Follow-up visit [id number] Genny Rios 1945 Date Provider Department Center 03/28/2023 [id number], XU [facility] No family history on file Level of Service:51207 OR OFFICE/OUTPATIENT NEW MODERATE MDM 45-59 MINUTES Normal [place] US RENAL LIMITEDon US RENAL LIMITED EXAMINATION: ULTRASOUND OF THE KIDNEYS 03/13/2023 10:12 am COMPARISON: None. HISTORY: ORDERING SYSTEM PROVIDED HISTORY: Renal cyst TECHNOLOGIST PROVIDED HISTORY: This procedure can be scheduled via [employer]. Access your [employer] account by visiting [employer]. FINDINGS: The right kidney measures 11.7 cm in length and the left kidney measures 11.3 cm in length. Normal renal cortical echogenicity. No hydronephrosis or nephrolithiasis. Simple right renal cyst 5 cm. Simple left renal cyst 5.2 cm. IMPRESSION: Simple bilateral renal cysts with otherwise unremarkable exam Interpreted by: Jonny Lopez DO Signed by: Jonny Lopez DO 03/13/23 Final result Normal [facility] Simple bilateral agus al cysts with otherwise unremarkable exam [facility] R[facility] CON[facility] EXAMINATION: ULTRASOUND OF THE KIDNEYS 03/13/2023 10:12 am COMPARISON: None. HISTORY: ORDERING SYSTEM PROVIDED HISTORY: Renal cyst TECHNOLOGIST PROVIDED HISTORY: This procedure can be scheduled via [facility] account by visiting [employer]. FINDINGS: The right kidney measures 11.7 cm in length and the left kidney measures 11.3 cm in length. Normal renal cortical echogenicity. No hydronephrosis or nephrolithiasis. Simple right renal cyst 5 cm. Simple left renal cyst 5.2 cm. [facility] Jonny Lopez DO - 03/13/2023 EXAMINATION: ULTRASOUND OF THE KIDNEYS 03/13/2023 10:12 am COMPARISON: None. HISTORY: ORDERING SYSTEM PROVIDED HISTORY: Renal cyst TECHNOLOGIST PROVIDED HISTORY: This procedure can be scheduled via [employer]. Access your [employer] account by visiting [employer]. FINDINGS: The right kidney measures 11.7 cm in length and the left kidney measures 11.3 cm in length. Normal renal cortical echogenicity. No hydronephrosis or nephrolithiasis. Simple right renal cyst 5 cm. Simple left renal cyst 5.2 cm. IMPRESSION: Simple bilateral renal cysts with otherwise unremarkable exam [facility] Radiology Study observation (narrative) [facility] US RENAL LIMITEDOrdered By: Jonny Lopez on 03-13-[address] [facility] Work Phone: XR lumbar spine 6V w bending on 03-07-2023 XR lumbar spine 6V w [place] [address] XRay Report Signed Patient: Mary Jane Rios MR#: [id number] 15 : 1945 Acct:[id number] Age/Sex: 77 / F ADM Date: 03/07/23 Loc: XD Room: Type: [facility] Attending Dr: Mukul Wilson MD Copies to: Mukul Wilson MD Ordering Provider: Mukul Wilson MD Date of Service: 03/07/23 XR/XR lumbar spine 6V w bending: M51.36,G89.29,M46.1,M54.59 ,M47.26,G89.29 6 views of the Lumbar Spinewith bending HISTORY: Lower back pain for one month COMPARISON: 03/14/22 POSTSURGICAL CHANGES: Cholecystectomy clips BONY ALIGNMENT: Similar Moderate scoliosis with concavity to the LEFT mild multilevel degenerative listhesis. No hypermobility. FRACTURE: None DEGENERATIVE CHANGES: Similar Extensive multilevel spondylosis and facet degeneration. SOFT TISSUES: Unremarkable BONY MINERALIZATION:Diffuse osteopenia XR/XR lumbar spine 6V w bending IMPRESSION: Extensive multilevel degenerative changes. A moderate scoliosis. Mild multilevel degenerative listhesis. No hypermobility. Impression dictated by: Jabier Alexander M.D.03/07/2023 12:27 PM Dictation Location: [place] [address] Transcribed By: [facility] 03/07/23 1227 Dictated By: Jabier Alexander DO 03/07/23 1225 Signed By: 03/07/23 1227 Normal [facility] Consent for Procedure/[facility] 03-01-2023 Consent for Procedure/Surgery [id number]:[id number] Normal [facility] Ambulatory Visit Summaryon 0 02-28-2023 Ambulatory Visit Summary MARY JANE RIOS Ora :1945 Visit Date:02/28/2023 Ambulatory Visit Instructions Your Diagnosis Intestinal metaplasia of stomach Acid reflux History of colon polyps Your Care Team Attending Physician - Marshall STEINER, Davion Zarate Primary Care Physician - NABILA STEINER, RONI Ortiz This Is Your Medications List acetaminophen-oxycodone (acetaminophen-oxycodone 325 mg-5 mg Tab) alprazolam aspirin calcium carbonate-magnesium carbonate citalopram (CeleXA 20 mg Tab) docusate (Colace) ergocalciferol (Vitamin D) famotidine (famotidine 20 mg Tab) fexofenadine (Ashley 24 Hour Allergy oral tablet) fluticasone nasal (fluticasone 0.05 mg/inh Nasal [place]) levothyroxine (levothyroxine 50 mcg (0.05 mg) Tab) loratadine (loratadine 10 mg oral capsule) multivitamin (Multiple Vitamins Tab) pantoprazole (Pantoprazole [address] Tab) pilocarpine (Salagen 5 mg Tab) pravastatin psyllium (Metamucil Fibre Therapy) topiramate (Topamax) Procedures Performed EGD - Esophagogastroduodenoscopy (07/26/2022), Rotator cuff repair (07/28/2021), Sling procedure of bladder neck (06/03/2019), Cystourethroscopy with dilation of urethral stricture (03/24/2019), Epidural injection of lumbar spine using fluoroscopic guidance (12/12/2015), Radiofrequency ablation of nerve root of lumbar spine using fluoroscopic guidance (11/17/2014), Radiofrequency ablation of nerve root of lumbar spine using fluoroscopic guidance (11/03/2014), Injection of facet joint using fluoroscopic guidance (10/20/2014), Facet joint nerve block (08/11/2014), Injection of sacroiliac joint using fluoroscopic guidance (03/19/2014), Injection of sacroiliac joint using fluoroscopic guidance (03/23/2013), Injection of sacroiliac joint using fluoroscopic guidance (11/17/2012), Injection of sacroiliac joint using fluoroscopic guidance (10/13/2012), EGD (04/30/2012), Epidural injection of lumbar spine using fluoroscopic guidance (11/16/2011), Epidural injection of lumbar spine using fluoroscopic guidance (10/05/2011), Cystourethroscopy with dilation of urethral stricture (08/27/2011), Right heart catheterization (09/29/2010), Arthroplasty of the hip, Basal cell carcinoma of forehead, Carpal tunnel release, CE - Cataract extraction, Cholecystectomy, Gastric polypectomy, Partial resection of colon, Repair of ankle, Repair of ligament, Repair of ventral hernia, QAMAR BSO - Total abdominal hysterectomy and bilateral salpingo-oophorectomy, Total arthroplasty of knee, geomedic or polycentric. Discharge Vitals Heart Rate (Peripheral) 64 Respiratory Rate 16 Blood Pressure 135/92 Height 162 cm Height 64 in Weight 97.8 kg Weight 215.16 lb BMI 37.27 Medications What How Much When Why Instructions Unchanged acetaminophen-oxycodone (acetaminophen-oxycodone 325 mg-5 mg Tab) take 1 tablet by mouth UP TO twice a day if needed for 7 days Unchanged alprazolam 0.5 Milligram By Mouth At bedtime Unchanged aspirin 81 Milligram By Mouth Every day Unchanged calcium carbonate-magnesium carbonate By Mouth 2 times a day Unchanged citalopram (CeleXA 20 mg Tab) 1 Tablets By Mouth Every day Unchanged docusate (Colace) 100 Milligram By Mouth Every day Unchanged ergocalciferol (Vitamin D) 2000 IU By Mouth 2 times a day Ordered by another provider. Unchanged famotidine (famotidine 20 mg Tab) 1 Tablets By Mouth Once a day (at bedtime) Acid reflux Duration: 90 Days Unchanged fexofenadine (Ashley 24 Hour Allergy oral tablet) 1 Tablets By Mouth Every day Unchanged fluticasone nasal (fluticasone 0.05 mg/ inh Nasal [place]) 50 Microgram Nasal Inhalation Every day Unchanged levothyroxine (levothyroxine 50 mcg (0.05 mg) Tab) 1 Tablets By Mouth Every day Unchanged loratadine (loratadine 10 mg oral capsule) 1 Capsules By Mouth Every day as needed for Allergy symptoms Unchanged multivitamin (Multiple Vitamins Tab) 1 Tablets By Mouth Every day Unchanged pantoprazole (Pantoprazole [address] Tab) 1 Tablets By Mouth 2 times a day Acid reflux Duration: 90 Days Unchanged pilocarpine (Salagen 5 mg Tab) 1 Tablets By Mouth 3 times a day Ordered by another provider. Unchanged pravastatin 40 Milligram By Mouth Once a day (at bedtime) Unchanged psyllium (Metamucil Fibre Therapy) 1 cap By Mouth Every day Unchanged topiramate (Topamax) 50 Milligram By Mouth Every day Allergies triamterene (Rash) Bactrim (Rash) Glutens (Upset stomach) Latex (Rash) Wheat (Itching) ibuprofen (U) morphine (Vomiting) naproxen (Unknown) sulfamethoxazole (Rash) Problems Ongoing - Any problem that you are currently receiving treatment for. Acid reflux Anticoagulated Asymptomatic microscopic hematuria Chronic back pain Epigastric pain H/O: arthritis History of colon polyps Hypercholesterolemia Hypothyroidism Internal hemorrhoids Intestinal metaplasia of stomach Low vitamin B12 level Mixed incontinence Mixed stress and urge urinary incontinence Nocturia Sl (more content not included)... Normal [facility] Cult,Urineon 02-28-2023 Cult,Urine Specimen Description .CLEAN CATCH URINE Culture NO SIGNIFICANT GROWTH Report Status FINAL 02/28/2023 Normal [facility] Comment on above: Performed By: #### B MP, TROPI, CBC, TSH #### [facility] [address] [place] [address] Train Gateman: Angelito Muir MD Basic Metabolic Profon 02-27 Anion gap [Moles/Vol] 9 mmol/L Normal 9-17 [facility] Comment on above: Performed By: #### B MP, TROPI, CBC, TSH #### [facility] [address] [place] [address] Train Gateman: Angelito Muir MD BUN/CRE Ratio 26 High 9-20 [facility] Comment on above: Performed By: #### B MP, TROPI, CBC, TSH #### [facility] [address] [place] [address] Train Gateman: Angelito Muir MD Calcium [Mass/Vol] 9.2 mg/dL Normal 8.6-10.4 [facility] Comment on above: Performed By: #### B MP, TROPI, CBC, TSH #### [facility] [address] [place] [address] Train Gateman: Angelito Muir MD Chloride [Moles/Vol] 104 mmol/L Normal 98-107 [facility] Comment on above: Performed By: #### B MP, TROPI, CBC, TSH #### [facility] [address] [place] [address] Train Gateman: Angelito Muir MD CO2 [Moles/Vol] 25 mmol/L Normal 20-31 [facility] Comment on above: Performed By: #### B MP, TROPI, CBC, TSH #### [facility] [address] [place] [address] Train Gateman: Angelito Muir MD Creatinine [Mass/Vol] 1.1 mg/dL High 0.5-0.9 [facility] Comment on above: Performed By: #### B MP, TROPI, CBC, TSH #### [facility] [address] [place], [place] [id number] Train Gateman: Angelito Muir MD GFR/1.73 sq M.predicted among non-blacks MDRD (S/P/Bld) [Vol rate/Area] 51 mL/min/{1.73_m2} Low >60 [facility] Comment on above: Result Comment: These results are not intended for use in patients <18 years of age. eGFR results are calculated without a race factor using the 2020 CKD-EPI equation. Careful clinical correlation is recommended, particularly when comparing to results calculated using previous equations. The CKD-EPI equation is less accurate in patients with extremes of muscle mass, extra-renal metabolism of creatine, excessive creatine ingestion, or following therapy that affects renal tubular secretion. Performed By: #### B MP, TROPI, CBC, TSH #### [facility] [address] [place], [place] [id number] Train Gateman: Angelito Muir MD Glucose [Mass/Vol] 93 mg/dL Normal 70-99 [facility] Comment on above: Performed By: #### B MP, TROPI, CBC, TSH #### [facility] [address] [place] [address] Train Gateman: Angelito Muir MD Potassium [Moles/Vol] 4.2 mmol/L Normal 3.7-5.3 [facility] Comment on above: Performed By: #### B MP, TROPI, CBC, TSH #### [facility] [address] [place] [address] Train Gateman: Angelito Muir MD Sodium [Moles/Vol] 138 mmol/L Normal 135-144 [facility] Comment on above: Performed By: #### B MP, TROPI, CBC, TSH #### [facility] [address] [place], [place] [phone] Train Gateman: Angelito Muir MD Urea nitrogen [Mass/Vol] 29 mg/dL High 8-23 [facility] Comment on above: Performed By: #### B MP, TROPI, CBC, TSH #### [facility] [address] [place] [address] Train Gateman: Angelito Muir MD CBC with Diffon 02-27-2023 Abs. Atypical Lymphs 0.20 k/uL Normal 0.0-1.0 [facility] Comment on above: Performed By: #### B MP, TROPI, CBC, TSH #### [facility] [address] [place] [address] Train Gateman: Angelito Muir MD Abs. Basophil Normal 0.0-0.2 [facility] Comment on above: Performed By: #### B MP, TROPI, CBC, TSH #### [facility] [address] [place] [address] Train Gateman: Angelito Muir MD Abs.Imm.Granulocyte Normal 0.00-0.30 [facility] Comment on above: Performed By: #### B MP, TROPI, CBC, TSH #### [facility] [address] [place] [phone] Train Gateman: Angelito Muir MD Abs.Neutrophil (Seg) 4.60 k/uL Normal 2.5-7.0 [facility] Comment on above: Performed By: #### B MP, TROPI, CBC, TSH #### [facility] [address] [place], [place] [phone] Train Gateman: Angelito Muir MD Atypical Lymphs 3 % Normal [facility] Comment on above: Performed By: #### B MP, TROPI, CBC, TSH #### [facility] [address] [place], [place] [phone] Train Gateman: Angelito Muir MD Basophil Normal 0-2 [facility] Comment on above: Performed By: #### B MP, TROPI, CBC, TSH #### [facility] [address] [place] [address] Train Gateman: Angelito Muir MD Eosinophils (Bld) [#/Vol] 0.07 10*3/uL Normal 0.0-0.4 [facility] Comment on above: Performed By: #### B MP, TROPI, CBC, TSH #### [facility] [address] [place], [place] [phone] Train Gateman: Angelito Muir MD Eosinophils/100 WBC (Bld) 1 % Normal 0-5 [facility] Comment on above: Performed By: #### B MP, TROPI, CBC, TSH #### [facility] [address] [place] [address] Train Gateman: Angelito Muir MD Immature Granulocyte Normal 0 [facility] Comment on above: Performed By: #### B MP, TROPI, CBC, TSH #### [facility] [address] [place] [address] Train Gateman: Angelito Muir MD Lymphocytes (Bld) [#/Vol] 1.24 10*3/uL Normal 1.0-4.8 [facility] Comment on above: Performed By: #### B MP, TROPI, CBC, TSH #### [facility] [address] [place] [address] Train Gateman: Angelito Muir MD Lymphocytes/100 WBC (Bld) 19 % Normal 15-40 [facility] Comment on above: Performed By: #### B MP, TROPI, CBC, TSH #### [facility] [address] [place], [place] [phone] Train Gateman: Angelito Muir MD Monocytes (Bld) [#/Vol] 0.39 10*3/uL Normal 0.0-1.0 [facility] Comment on above: Performed By: #### B MP, TROPI, CBC, TSH #### [facility] [address] [place], [place] [phone] Train Gateman: Angelito Muir MD Monocytes/100 WBC (Bld) 6 % Normal 4-8 [facility] Comment on above: Performed By: #### B MP, TROPI, CBC, TSH #### [facility] [address] [place] [id number] Train Gateman: Angelito Muir MD Morphology Gior (Bld) [Interp] Manual Differential Performed Normal [facility] Comment on above: Performed By: #### B MP, TROPI, CBC, TSH #### [facility] [address] [place] [id number] Train Gateman: Angelito Muir MD Neutrophil (Seg) 71 % Normal 47-75 [facility] Comment on above: Performed By: #### B MP, TROPI, CBC, TSH #### [facility] [address] [place] [id number] Train Gateman: Angelito Muir MD Erythrocyte distribution width (RBC) [Ratio] 14.6 % Normal 12.1-15.2 [facility] Comment on above: Performed By: #### B MP, TROPI, CBC, TSH #### [facility] [address] [place] [id number] Train Gateman: Angelito Muir MD Hematocrit (Bld) [Volume fraction] 36.6 % Normal 36-46 [facility] Comment on above: Performed By: #### B MP, TROPI, CBC, TSH #### [facility] [address] [place] [address] Train Gateman: Angelito Muir MD Hemoglobin (Bld) [Mass/Vol] 12.3 g/dL Normal 12.0-16.0 [facility] Comment on above: Performed By: #### B MP, TROPI, CBC, TSH #### [facility] [address] [place], [place] [phone] Train Gateman: Angelito Muir MD MCH (RBC) [Entitic mass] 31.0 pg Normal 26-34 [facility] Comment on above: Performed By: #### B MP, TROPI, CBC, TSH #### [facility] [address] [place], [place] [phone] Train Gateman: Angelito Muir MD MCHC (RBC) [Mass/Vol] 33.6 g/dL Normal 31-37 [facility] Comment on above: Performed By: #### B MP, TROPI, CBC, TSH #### [facility] [address] [place], [place] [phone] Train Gateman: Angelito Muir MD MCV (RBC) [Entitic vol] 92.2 fL Normal 80-100 [facility] Comment on above: Performed By: #### B MP, TROPI, CBC, TSH #### [facility] [address] [place] [address] Train Gateman: Angelito Muir MD Platelets (Bld) [#/Vol] 202 10*3/uL Normal 140-450 [facility] Comment on above: Performed By: #### B MP, TROPI, CBC, TSH #### [facility] [address] [place], [place] [phone] Train Gateman: Angelito Muir MD RBC (Bld) [#/Vol] 3.97 10*6/uL Low 4.0-5.2 [facility] Comment on above: Performed By: #### B MP, TROPI, CBC, TSH #### [facility] [address] [place] [id number] Train Gateman: Angelito Muir MD WBC (Bld) [#/Vol] 6.5 10*3/uL Normal 3.5-11.0 [facility] Comment on above: Performed By: #### B MP, TROPI, CBC, TSH #### [facility] [address] [place] [address] Train Gateman: Angelito Muir MD Urinalysis, Routineon 2022 Bilirubin, SemiQt,Ur Negative Abnormal NEG [facility] Comment on above: Performed By: #### B MP, TROPI, CBC, TSH #### [facility] [address] [place] [address] Train Gateman: Angelito Muir MD Blood, Urine TRACE Abnormal NEG [facility] Comment on above: Performed By: #### B MP, TROPI, CBC, TSH #### [facility] [address] [place] [address] Train Gateman: Angelito Muir MD Clarity (U) Clear Normal CLEAR [facility] Comment on above: Performed By: #### B MP, TROPI, CBC, TSH #### [facility] [address] [place] [address] Train Gateman: Angelito Muir MD Color (U) Yellow Normal L [facility] Comment on above: Performed By: #### B MP, TROPI, CBC, TSH #### [facility] [address] [place] [address] Train Gateman: Angelito Muir MD Comment Normal [facility] Comment on above: Performed By: #### B MP, TROPI, CBC, TSH #### [facility] [address] [place] [address] Train Gateman: Angelito Muir MD Glucose Ql (U) Negative Normal NEG [facility] Comment on above: Performed By: #### B MP, TROPI, CBC, TSH #### [facility] [address] [place] [address] Train Gateman: Angelito Muir MD Ketones Ql (U) Negative Normal NEG [facility] Comment on above: Performed By: #### B MP, TROPI, CBC, TSH #### [facility] [address] [place] [address] Train Gateman: Angelito Muir MD Leukocyte esterase Test strip Ql (U) 1+ Abnormal NEG [facility] Comment on above: Performed By: #### B MP, TROPI, CBC, TSH #### [facility] [address] [place] [address] Train Gateman: Angelito Muir MD Nitrite,Ur Negative Normal NEG [facility] Comment on above: Performed By: #### B MP, TROPI, CBC, TSH #### [facility] [address] [place] [address] Train Gateman: Angelito Muir MD PH,Ur 5.0 Normal 5.0-8.0 [facility] Comment on above: Performed By: #### B MP, TROPI, CBC, TSH #### [facility] [address] [place] [address] Train Gateman: Angelito Muir MD Protein Ql (U) TRACE Abnormal NEG [facility] Comment on above: Performed By: #### B MP, TROPI, CBC, TSH #### [facility] [address] [place] [address] Train Gateman: Angelito Muir MD Spec. [place],Ur 1.025 Normal 1.005-1.03 0 [facility] Comment on above: Performed By: #### B MP, TROPI, CBC, TSH #### [facility] [address] [place] [id number] Train Gateman: Angelito Muir MD Urobilinogen,Ur Normal Normal 0.0-1.0 [facility] Comment on above: Performed By: #### B MP, TROPI, CBC, TSH #### [facility] [address] [place] [address] Train Gateman: Angelito Muir MD Urinalysis,Microon 3 ----- Normal [facility] Comment on above: Performed By: #### B MP, TROPI, CBC, TSH #### [facility] [address] [place] [address] Train Gateman: Angelito Muir MD Bacteria 2+ Abnormal NONE [facility] Comment on above: Performed By: #### B MP, TROPI, CBC, TSH #### [facility] [address] [place] [address] Train Gateman: Angelito Muir MD Epithelial cells LM Ql (Urine sed) 20 TO 50 Normal [facility] Comment on above: Performed By: #### B MP, TROPI, CBC, TSH #### [facility] [address] [place] [address] Train Gateman: Angelito Muir MD Urine RBC's 2 TO 5 Normal 0-2 [facility] Comment on above: Performed By: #### B MP, TROPI, CBC, TSH #### [facility] [address] [place] [address] Train Gateman: Angelito Muir MD Urine WBC's 2 TO 5 Normal 0 [facility] Comment on above: Performed By: #### B MP, TROPI, CBC, TSH #### [facility] [address] [place] [address] Train Gateman: Angelito Muir MD XR CHEST (2 VW)on 02-27-2023 XR CHEST (2 VW) EXAM: CHEST 2 VIEWS HISTORY: Acute cough TECHNIQUE: PA and lateral views chest. COMPARISON: 11/25/2022. FINDINGS: The lungs are clear. There is no focal lung consolidation, pleural effusion or pneumothorax. Pulmonary vasculature is within normal limits. There is aortic atherosclerosis. Heart size within normal limits. IMPRESSION: 1. No acute cardiopulmonary disease. Interpreted by: Karyn Kwon MD Signed by: Karyn Kwon MD 02/27/23 Final result Normal [facility] MR lumbar spine wo conon MR lumbar spine wo con [facility] [place] [address] [place], [place] [id number] MRI Report Signed Patient: Mary Jane Rios MR#: [id number] 15 : 1945 Acct:[id number] Age/Sex: 77 / F ADM Date: 02/21/23 Loc: MR [facility]: [facility] Dr: Yanelis Garcia MD Copies to: Yanelis Garcia MD Ordering Provider: Yanelis Garcia MD Date of Service: 02/21/23 MR/MR lumbar spine wo con: Other spondylosis with radiculopathy, lumbar region MR lumbar spine wo con 02/21/2023 2:34 PM SIGNS AND SYMPTOMS: Low back pain radiating into gluteal region. PROTOCOL: Multiplanar multisequence MR images of the lumbar spine were obtained without IV contrast. COMPARISON: 05/07/2022. FINDINGS: The bones of the lumbar spine are in anatomic alignment. There is preservation of vertebral body heights. There is severe disc height loss at L3-L4. There is moderate disc height loss throughout otherwise. There is a benign-appearing hemangioma at T12. The conus terminates at the inferior endplate of the T12 vertebral body level. No epidural or paraspinous fluid collection is appreciated. There is a large parapelvic cyst versus hydronephrosis in the right pelvis. This shows interval improvement since the prior study. At T12-L1: There is a broad-based disc bulge with facet hypertrophy. There is mild spinal canal stenosis with mild to moderate bilateral neural foraminal narrowing. At L1-L2: There is a broad-based disc bulge with facet hypertrophy. There is mild spinal canal stenosis with mild right and moderate left neural foraminal stenosis. At L2-L3: There is a circumferential disc bulge with endplate spur formation and facet hypertrophy. There is mild spinal canal narrowing with moderate left mild right neural foraminal stenosis. At L3-L4: There is a broad-based disc bulge with facet hypertrophy. There is mild spinal canal narrowing with mild to moderate bilateral neural foraminal narrowing. At L4-L5: There is a broad-based disc bulge with endplate osteophyte formation contributing to moderate right neural foraminal narrowing without spinal canal narrowing. At L5-S1: There is a unilateral right-sided L5 pars defect without listhesis. There is partial sacralization of the left transverse process of L5. There is a broad-based disc bulge with endplate osteophyte formation contributing to severe right and mild left neural foraminal narrowing. This mild spinal canal narrowing. There is mass effect on the exiting right L5 nerve roots. This is slightly worse when compared to the prior exam. MR/MR lumbar spine wo con IMPRESSION: At L5-S1: There is a unilateral right-sided L5 pars defect without listhesis. There is partial sacralization of the left transverse process of L5. There is a broad-based disc bulge with endplate osteophyte formation contributing to severe right and mild left neural foraminal narrowing. This mild spinal canal narrowing. There is mass effect on the exiting right L5 nerve roots. This is slightly worse when compared to the prior exam. Lesser degrees of degenerative changes are redemonstrated, as above. There is a large parapelvic cyst versus hydronephrosis in the right pelvis. This shows interval improvement since the prior study. Impression dictated by: John Anguiano M.D.02/21/2023 4:09 PM Dictation Location: [place] [address] Transcribed By: [facility] 02/21/23 0090 Dictated By: John Anguiano II, MD 02/21/23 1552 Signed By: 02/21/23 [id number] [facility] Cult,Urineon 12-15-2022 Cult,Urine Specimen Description .CLEAN CATCH URINE Culture ENTEROBACTER CLOACAE COMPLEX 10 to 50,000 CFU/ML ENTEROCOCCUS FAECALIS 10 to 50,000 CFU/ML Report Status FINAL 12/15/2022 SUSCEPTIBILITY Organism ENTEROCOCCUS FAECALIS Method GRACE Ampicillin <=2 SUSCEPTIBLE Ciprofloxacin <=0.5 SUSCEPTIBLE Levofloxacin 0.5 SUSCEPTIBLE Nitrofurantoin <=16 SUSCEPTIBLE Tetracycline >=16 RESISTANT Vancomycin 1 SUSCEPTIBLE SUSCEPTIBILITY Organism ENCLCX Method GRACE Gentamicin <=1 SUSCEPTIBLE Levofloxacin <=0.12 SUSCEPTIBLE Nitrofurantoin 64 INTERMEDIATE Piperacillin/Tazobactam <=4 SUSCEPTIBLE Tobramycin <=1 SUSCEPTIBLE Trimethoprim/Sulfa <=20 SUSCEPTIBLE SUSCEPTIBILITY Organism ENCLCX Method PAULINO TAVAREZ Ceftriaxone SUSCEPTIBLE Susceptible [facility] Comment on above: Performed By: #### U RC #### [facility] [address] [place], [place] [id number] Train Gateman: Ambrose Moura MD [facility] [address] [place], [place] [phone] Train Gateman: Angelito Muir MD Urinalysis w/ Microon 2022 Bacteria TRACE Abnormal NONE [facility] Comment on above: Performed By: #### U AMIC #### [facility] [address] [place], [place] [phone] Train Gateman: Angelito Muir MD Bilirubin, SemiQt,Ur Negative Normal NEG [facility] Comment on above: Performed By: #### U AMIC #### [facility] [address] [place], [place] [phone] Train Gateman: Angelito Muir MD Blood, Urine 1+ Abnormal NEG [facility] Comment on above: Performed By: #### U AMIC #### [facility] [address] [place], [place] [phone] Train Gateman: Angelito Muir MD Clarity (U) Clear Normal CLEAR [facility] Comment on above: Performed By: #### U AMIC #### [facility] [address] [place], [place] [phone] Train Gateman: Angelito Muir MD Color (U) Yellow Normal YEL [facility] Comment on above: Performed By: #### U AMIC #### [facility] [address] [place], [place] [phone] Train Gateman: Angelito Muir MD Epithelial cells LM Ql (Urine sed) 0 TO 2 Normal 0-25 [facility] Comment on above: Performed By: #### U AMIC #### [facility] [address] [place] [address] Train Gateman: Angelito Muir MD Glucose Ql (U) Negative Normal NEG [facility] in Hospital Comment on above: Performed By: #### U AMIC #### [facility] [address] [place] [address] Dr. [place], [place] [phone] Train Gateman: Angelito Muir MD Ketones Ql (U) Negative Normal NEG [facility] in Hospital Comment on above: Performed By: #### U AMIC #### [facility] [address] [place] [address] Dr. [place], [place] [phone] Train Gateman: Angelito Muir MD Leukocyte esterase Test strip Ql (U) Negative Normal NEG [facility] Comment on above: Performed By: #### U AMIC #### [address] [place], [place] [phone] Train Gateman: Angelito Muir MD Nitrite,Ur Negative Normal NEG [facility] Comment on above: Performed By: #### U AMIC #### [facility] [address] [place] [address] Dr. [place], [place] [phone] Train Gateman: Angelito Muir MD PH,Ur 6.0 Normal 5.0-9.0 [facility] Comment on above: Performed By: #### U AMIC #### [address] [place], [place] [phone] Train Gateman: Angelito Muir MD Protein Ql (U) Negative Normal NEG [facility] in Hospital Comment on above: Performed By: #### U AMIC #### [facility] [address] [place] [address] [place] [address] Train Gateman: Angelito Muir MD Spec. [place],Ur 1.020 Normal 1.010-1.02 0 [facility] Comment on above: Performed By: #### U AMIC #### [facility] [address] [place] [address] Dr. [place], [place] [phone] Train Gateman: Angelito Muir MD Urine RBC's 0 TO 2 Normal 0-2 [facility] Comment on above: Performed By: #### U AMIC #### [facility] [address] [place] [address] Train Gateman: Angelito Muir MD Urine WBC's 0 TO 2 Normal 0-5 [facility] Comment on above: Performed By: #### U AMIC #### [facility] [address] [place] [address] Train Gateman: Angelito Muir MD Urobilinogen,Ur Normal Normal NORM [facility] Comment on above: Performed By: #### U AMIC #### [facility] [address] [place] [address] Train Gateman: Angelito Muir MD CBC with Auto Differentialon 11-25-2022 Basophils (Bld) [#/Vol] 0.00 10*3/uL [facility] Basophils/100 WBC (Bld) 0 % 0 - 2 % [facility] Differential Type YES [facility] Eosinophils (Bld) [#/Vol] 0.10 10*3/uL [facility] Eosinophils/100 WBC (Bld) 2 % 0 - 5 % [facility] Erythrocyte distribution width (RBC) [Ratio] 14.0 % 12.1 - 15.2 % [facility] Hematocrit (Bld) [Volume fraction] 35.6 % Low 36 - 46 % [facility] Hemoglobin (Bld) [Mass/Vol] 12.0 g/dL 12.0 - 16.0 g/dL [facility] Interpretation and review of laboratory results Abnormal [facility] Lymphocytes/100 WBC (Bld) 27 % 15 - 40 % [facility] Lymphocytes/100 WBC (Bld) 1.30 % [facility] MCH (RBC) [Entitic mass] 31.0 pg 26 - [address] [facility] MCHC (RBC) [Mass/Vol] 33.8 g/dL 31 - 3 7 g/dL [facility] MCV (RBC) [Entitic vol] 91.6 fL 80 - 100 fL [facility] Monocytes/100 WBC (Bld) 9 % High 4 - 8 % [facility] Monocytes/100 WBC (Bld) 0.50 % [facility] Neutrophils/100 WBC (Bld) 62 % 47 - 75 % [facility] Platelets (Bld) [#/Vol] 240 10*3/uL [facility] RBC (Bld) [#/Vol] 3.89 10*6/uL Low 4.0 - 5.2 m/uL [facility] Segmented neutrophils/100 WBC (Bld) 3.10 % [facility] WBC other (Bld) [#/Vol] 5.0 [facility] Comprehensive Metabolic Pane trevor 11-25-2022 Albumin [Mass/Vol] 3.7 g/dL 3.5 - 5.2 g/dL [facility] ALP [Catalytic activity/Vol] 70 U/L 35 - 104 U/L [facility] ALT [Catalytic activity/Vol] 6 U/L 5 - 33 U/L [facility] Anion gap [Moles/Vol] 10 mmol/L 9 - 17 mmol/L [facility] AST [Catalytic activity/Vol] 15 U/L NINF - 32 U/L [facility] Bilirubin [Mass/Vol] 0.3 mg/dL 0.3 - 1 .2 mg/dL [facility] Calcium [Mass/Vol] 9.4 mg/dL 8.6 - 10. 4 mg/dL [facility] Chloride [Moles/Vol] 105 mmol/L 98 - 10 7 mmol/L [facility] CO2 [Moles/Vol] 24 mmol/L 20 - 31 mmol/L [facility] Creatinine [Mass/Vol] 1.12 mg/dL High 0.50 - 0.90 mg/dL [facility] GFR/1.73 sq M.predicted MDRD (S/P/Bld) [Vol rate/Area] 51 mL/min/{1.73_m2} Low - PINF [facility] Comment on above: These results are not intended for use in patients <18 years of age. eGFR results are calculated without a race factor using the 2020 CKD-EPI equation. Careful clinical correlation is recommended, particularly when comparing to results calculated using previous equations. The CKD-EPI equation is less accurate in patients with extremes of muscle mass, extra-renal metabolism of creatine, excessive creatine ingestion, or following therapy that affects renal tubular secretion. Glucose [Mass/Vol] 97 mg/dL 70 - 99 mg/dL [facility] Interpretation and review of laboratory results Abnormal [facility] Potassium [Moles/Vol] 4.1 mmol/L 3.7 - 5.3 mmol/L [facility] Protein [Mass/Vol] 6.7 g/dL 6.4 - 8.3 g/dL [facility] Sodium [Moles/Vol] 139 mmol/L 135 - 144 mmol/L [facility] Urea nitrogen [Mass/Vol] 32 mg/dL High 8 - 23 mg/dL [facility] Urea nitrogen/Creatinine [Mass ratio] 29 mg/mg High 9 - 20 [facility] Microscopic Urinalysison - [facility] Epithelial cells LM.HPF (Urine sed) [#/Area] 0 TO 2 /HPF [facility] RBC LM.HPF (Urine sed) [#/Area] 0 TO [address] [facility] WBC LM.HPF (Urine sed) [#/Area] NONE SEEN 0 /HPF [facility] Urinalysison 11-25-2022 Bilirubin Ql (U) Negative NEGATIVE [facility] Clarity (U) Clear Clear [facility] Color (U) Yellow Yellow [facility] Glucose Test strip (U) [Mass/Vol] Negative NEGATIVE [facility] Hemoglobin Auto test strip Ql (U) TRACE Abnormal NEGATIVE [facility] Interpretation and review of laboratory results Abnormal [facility] Ketones (U) [Mass/Vol] Negative NEGATIVE [facility] Leukocyte esterase Test strip Ql (U) Negative NEGATIVE [facility] Nitrite Ql (U) Negative NEGATIVE [facility] pH (U) 6.5 [pH] 5.0 - 8.[address] [facility] Protein (U) [Mass/Vol] TRACE Abnormal NEGATIVE [facility] Specific gravity (U) [Rel density] 1.015 1.005 - 1.[address] [facility] Urinalysis Comments [facility] Urobilinogen Qn (U) Normal Normal [facility] XR CHEST (2 VW)on 11-25-2022 No acute cardiopulmonary findings. [facility] EXAM: XR CHEST (2 VW ) INDICATION: Reason for exam:->Recently treated for Pneumonia. COMPARISON: 11/17/2022 TECHNIQUE: Chest radiograph(s) as above FINDINGS: Lines/Tubes: None Lungs: No pneumothorax, pleural effusion, or consolidation. Cardiomediastinal silhouette: Normal in size. Bones/Soft Tissues: No acute osseous abnormality. Right upper quadrant surgical clips. [facility] Bello Zheng MD - 11/25/2022 EXAM: XR CHEST (2 VW) INDICATION: Reason for exam:->Recently treated for Pneumonia. COMPARISON: 11/17/2022 TECHNIQUE: Chest radiograph(s) as above FINDINGS: Lines/Tubes: None Lungs: No pneumothorax, pleural effusion, or consolidation. Cardiomediastinal silhouette: Normal in size. Bones/Soft Tissues: No acute osseous abnormality. Right upper quadrant surgical clips. IMPRESSION: No acute cardiopulmonary findings. [facility] [employer] Work Phone: Radiology Study observation (narrative) [facility] [employer] Phone: XR CHEST (2 VW)Ordered By: Dejan Zheng on 11-25-[address] [facility] Work Phone: XR CHEST (2 VW)on 08-29-2022 FINDINGS/IMPRESSION: 1. Normal sized heart. 2. Clear lungs. [facility] EXAM: XR CHEST (2 VW ) HISTORY: Reason for exam:->HTN. COMPARISON: Portable chest 03/31/2020. [facility] Ishmael Valentin Jr., MD - 08/29/2022 EXAM: XR CHEST (2 VW) HISTORY: Reason for exam:->HTN. COMPARISON: Portable chest 03/31/2020. IMPRESSION: FINDINGS/IMPRESSION: 1. Normal sized heart. 2. Clear lungs. [employer] Phone: Radiology Study observation (narrative) [employer] Phone: XR CHEST (2 VW)Ordered By: Jo Valentin on 08-29-2022 [employer] Phone: Aspartate aminotransferase [ Enzymatic activity/volume] in Serum or PlasmaOrdered By: Obie Hylton on 08-21-2022 AST [Catalytic activity/Vol] 16 U/L 10-42 [facility] Automated erythrocytes count in urine sediment (number/area)Ordered By: Obie Hylton on 08-21-2022 RBC Auto (Urine sed) [#/Area] 1-2 [HPF] 0-4 [facility] Automated leukocytes count i n urine sediment (number/area)Ordered By: Obie Hylton on 08-21-2022 WBC Auto (Urine sed) [#/Area] 5-9 [HPF] 0-4 [facility] Basophils Auto (Bld) [#/Vol] Ordered By: Obie Hylton on 08-21-2022 Basophils (Bld) [#/Vol] 0.0 10*3/uL 0.0-0.2 [facility] Basophils/100 WBC Auto (Bld) Ordered By: Obie Hylton on 08-21-2022 Basophils/100 WBC (Bld) 0.3 % . [facility] Bilirubin Test strip Ql (U)O rdered By: Obie Hylton on 08-21-2022 Bilirubin Ql (U) Negative Negative [facility] Body fluid albumin measureme nt (mass/volume)Ordered By: Obie Hylton on 08-21-2022 Albumin (Body fld) [Mass/Vol] 3.6 g/dL 3.2-5.5 [facility] Cholesterol [Mass/volume] in Serum or PlasmaOrdered By: Kenneth Givens on 08-21-2022 Cholesterol [Mass/Vol] 120 mg/dL 140-200 [facility] Comment on above: Chol less than 200 m g/dl low riskChol 201-239 mg/dl borderline riskChol 240 mg/dl and greater high risk Cholesterol in LDL Calc [Raulito s/Vol]Ordered By: Kenneth Givens on 08-21-2022 Cholesterol in LDL [Mass/Vol] 59 mg/dL 0-100 [facility] Comment on above: LDL ATP III CLASSIFI CATIONLDL less than 100 mg/dL OptimalLDL 100-129 mg/dL Near or above optimalLDL 130-159 mg/dL Borderline highLDL 160-189 mg/dL HighLDL greater than 189 mg/dL Very high Cholesterol in VLDL Calc [Cindy ss/Vol]Ordered By: Kenneth Givens on 08-21-2022 Cholesterol in VLDL [Mass/Vol] 15 mg/dL [facility] Color Auto (U)Ordered By: Cindy Hylton on 08-21-2022 Color (U) Yellow Yellow [facility] Creatinine and Glomerular fi ltration rate.predicted panel (S/P/Bld)Ordered By: Obie Hylton on 08-21-2022 Creatinine [Mass/Vol] 1.19 mg/dL 0.44-1.03 [facility] Eosinophils Auto (Bld) [#/Vo l]Ordered By: Obie Hylton on 08-21-2022 Eosinophils (Bld) [#/Vol] 0.1 10*3/uL 0.0-0.45 [facility] Eosinophils/100 WBC Auto (Bl d)Ordered By: Obie Hylton on 08-21-2022 Eosinophils/100 WBC (Bld) 1.2 % . [facility] Erythrocyte distribution wid th Auto (RBC) [Ratio]Ordered By: Obie Hylton on 08-21-2022 Erythrocyte distribution width (RBC) [Ratio] 14.5 % 11.9-15.3 [facility] Erythrocyte sedimentation ra te by Photometric methodOrdered By: Obie Hylton on 08-21-2022 ESR Photometric method (Bld) [Velocity] 9 mm/hr 0-29 [facility] Estimated glomerular filtrat ion rate (GFR) non- AmericanOrdered By: Obie Hylton on 08-21-2022 GFR/1.73 sq M.predicted among non-blacks MDRD (S/P/Bld) [Vol rate/Area] 44 mL/Min [facility] Globulin Calc (S) [Mass/Vol] Ordered By: Obie Hylton on 08-21-2022 Globulin (S) [Mass/Vol] 2.6 g/dL [facility] Hematocrit Auto (Bld) [Volum e fraction]Ordered By: Obie Hylton on 08-21-2022 Hematocrit (Bld) [Volume fraction] 35.6 % 34.0-46.4 [facility] Hemoglobin [Mass/volume] in BloodOrdered By: Obie Hylton on 08-21-2022 Hemoglobin (Bld) [Mass/Vol] 11.9 g/dL 11.8-15.4 [facility] Ketones Auto test strip (U) [Mass/Vol]Ordered By: Obie Hylton on 08-21-2022 Ketones (U) [Mass/Vol] Negative Negative [facility] Laboratory - Chemistry and C hemistry - challengeOrdered By: Kenneth Givens on 08-21-2022 Magnesium [Mass/Vol] 2.1 mg/dL 1.6-2.6 [facility] Laboratory - UrinalysisOrder ed By: Obie Hylton on 08-21-2022 Hyaline casts LM Ql (Urine sed) 0-8 [LPF] 0-8 [facility] Leukocytes [#/volume] correc pepito for nucleated erythrocytes in Blood by Automated counOrdered By: Obie Hylton on 08-21-2022 WBC corrected for nucl RBC Auto (Bld) [#/Vol] 4.7 10*3/uL 3.8-11.6 [facility] Lymphocytes Auto (Bld) [#/Vo l]Ordered By: Obie Hylton on 08-21-2022 Lymphocytes (Bld) [#/Vol] 1.0 10*3/uL 1.00-4.8 [facility] Lymphocytes/100 WBC Auto (Bl d)Ordered By: Obie Hylton on 08-21-2022 Lymphocytes/100 WBC (Bld) 21.8 % . [facility] MCH Auto (RBC) [Entitic mass ]Ordered By: Obie Hylton on 08-21-2022 MCH (RBC) [Entitic mass] 33.9 pg 24.7-34.3 [facility] MCHC Auto (RBC) [Mass/Vol]Or dered By: Obie Hylton on 08-21-2022 MCHC (RBC) [Mass/Vol] 33.5 g/dL 32.0-35.0 [facility] MCV Auto (RBC) [Entitic vol] Ordered By: Obie Hylton on 08-21-2022 MCV (RBC) [Entitic vol] 101.2 fL 80-100 [facility] Monocytes Auto (Bld) [#/Vol] Ordered By: Obie Hylton on 08-21-2022 Monocytes (Bld) [#/Vol] 0.4 10*3/uL 0.0-0.8 [facility] Monocytes/100 WBC Auto (Bld) Ordered By: Obie Hylton on 08-21-2022 Monocytes/100 WBC (Bld) 8.2 % . [facility] Neutrophils Auto (Bld) [#/Vo l]Ordered By: Obie Hylton on 08-21-2022 Neutrophils (Bld) [#/Vol] 3.2 10*3/uL 1.8-7.7 [facility] Neutrophils/100 WBC Auto (Bl d)Ordered By: Obie Hylton on 08-21-2022 Neutrophils/100 WBC (Bld) 68.5 % . [facility] Nitrite Test strip Ql (U)Ord ered By: Obie Hylton on 08-21-2022 Nitrite Ql (U) Negative Negative [facility] No Panel InformationOrdered By: Kenneth Givens on 08-21-2022 25-Hydroxy Vitamin D Total 43.9 ng/mL 30-100 [facility] Comment on above: VITAMIN D STATUS 25( [place])VITAMIN D RANGE (ng/mL) Deficient <20 Insufficient 20 to <30Sufficient 30 to 100Reference: Jennifer MF,Babs LUCERO, Blank GALLARDO, et al. Evaluation,treatment, and prevention of vitamin D deficiency; an Endocrine Society clinical practice guideline. JCEM. 2010; 96(7):1911-30. No Panel InformationOrdered By: Obie Hylton on 08-21-2022 Estimated GFR () 53 mL/Min [facility] Comment on above: GFR estimated refere nce range: According to KDOQI guidelines, <60 ml/min/1.73m2 is sufficient to diagnose a patient with chronic kidney disease. Pharmacy Creatinine Clearance (Chem N/A [facility] Nucleated erythrocytes [Pres ence] in Blood by Automated countOrdered By: Obie Hylton on 08-21-2022 Nucleated RBC Auto Ql (Bld) 0.2 /100{WBC} 0-0.5 [facility] Platelet mean volume Auto (B ld) [Entitic vol]Ordered By: Obie Hylton on 08-21-2022 Platelet mean volume (Bld) [Entitic vol] 9.0 fL 6.3-10.7 [facility] Platelets Auto (Bld) [#/Vol] Ordered By: Obie Hylton on 08-21-2022 Platelets (Bld) [#/Vol] 188 10*3/uL 150-450 [facility] Protein Auto test strip (U) [Mass/Vol]Ordered By: Obie Hylton on 08-21-2022 Protein (U) [Mass/Vol] Negative Negative [facility] Protein [Mass/volume] in Ser um or PlasmaOrdered By: Obie Hylton on 08-21-2022 Protein [Mass/Vol] 6.2 g/dL 6.1-7.9 [facility] RBC Auto (Bld) [#/Vol]Ordere d By: Obie Hylton on 08-21-2022 RBC (Bld) [#/Vol] 3.52 10*6/uL 3.60-5.00 [facility] Serum or plasma alanine negro otransferase measurement without P-5'-P (enzymatic activiOrdered By: Obie Hylton on 08-21-2022 ALT No additional P-5'-P [Catalytic activity/Vol] 12 U/L 10-60 [facility] Serum or plasma albumin/glob ulin mass ratioOrdered By: Obie Hylton on 08-21-2022 Albumin/Globulin [Mass ratio] 1.4 {ratio} [facility] Serum or plasma alkaline glen sphatase measurement (enzymatic activity/volume)Ordered By: Obie Hylton on 08-21-2022 ALP [Catalytic activity/Vol] 58 U/L 32-92 [facility] Serum or plasma anion gap de terminationOrdered By: Obie Hylton on 08-21-2022 Anion gap [Moles/Vol] 13.5 mmol/L 6.0-15.0 [facility] Serum or plasma calcium olivia urement (mass/volume)Ordered By: Obie Hylton on 08-21-2022 Calcium [Mass/Vol] 9.1 mg/dL 8.2-10.2 [facility] Serum or plasma chloride wilner surement (moles/volume)Ordered By: Obie Hylton on 08-21-2022 Chloride [Moles/Vol] 105 mmol/L 95-114 [facility] Serum or plasma glucose olivia urement (mass/volume)Ordered By: Obie Hylton on 08-21-2022 Glucose [Mass/Vol] 91 mg/dL 70-100 [facility] Comment on above: ADA recommended refe rence rangeRandom Glucose Reference Range is dependent on time and content of last meal. Glucose of more than 200 mg/dL in a nonstressed, ambulatory subject supports the diagnosis of Diabetes Mellitus. Serum or plasma high density lipoprotein (HDL) cholesterol measurementOrdered By: Kenneth Givens on 08-21-2022 Cholesterol in HDL [Mass/Vol] 45 mg/dL 35-85 [facility] Comment on above: HDL CHOL ATP-III CLA SSIFICATION Cardiovascular RiskHDL > or equal to 60 mg/dL LOWHDL < 40 mg/dL HIGH Serum or plasma potassium me asurement (moles/volume)Ordered By: Obie Hylton on 08-21-2022 Potassium [Moles/Vol] 4.1 mmol/L 3.5-5.1 [facility] Serum or plasma sodium measu rement (moles/volume)Ordered By: Obie Hylton on 08-21-2022 Sodium [Moles/Vol] 138 mmol/L 136-146 [facility] Serum or plasma total biliru bin measurement (mass/volume)Ordered By: Obie Hylton on 08-21-2022 Bilirubin [Mass/Vol] 0.3 mg/dL 0.3-1.2 [facility] Serum or plasma total carbon dioxide measurement (moles/volume)Ordered By: Obie Hylton on 08-21-2022 CO2 [Moles/Vol] 23.6 mmol/L 22.0-30.[address] [facility] Serum or plasma total choles terol/high density lipoprotein (HDL) cholesterol mass ratOrdered By: Kenneth Givens on 08-21-2022 Cholesterol.total/Cho lesterol in HDL [Mass ratio] 2.7 {ratio} <5.0 [facility] Serum or plasma urea nitroge n measurement (mass/volume)Ordered By: Obie Hylton on 08-21-2022 Urea nitrogen [Mass/Vol] 25 mg/dL 9- [facility] Specific gravity Auto test s trip (U) [Rel density]Ordered By: Obie Hylton on 08-21-2022 Specific gravity (U) [Rel density] 1.014 1.001-1.03 0 [facility] Squamous epithelial cells de tection in urine sediment by light microscopyOrdered By: Obie Hylton on 08-21-2022 Epithelial cells.squamous LM Ql (Urine sed) 5-9 [HPF] 0-2 [facility] TSH DL <= 0.005 mIU/L QnOrde red By: Kenneth Givens on 08-21-2022 TSH Qn 1.14 m[IU]/L 0.45-5.33 [facility] Triglyceride [Mass/volume] i n Serum or PlasmaOrdered By: Kenneth Givens on 08-21-2022 Triglyceride [Mass/Vol] 78 mg/dL 35-149 [facility] Comment on above: TRIG ATP III CLASSIF ICATIONTRIG less than 150 mg/dL NormalTRIG 150-199 mg/dL Borderline highTRIG 200-500 mg/dL High TRIG greater than 500 mg/dL Very highStandard traceable to the Center for Disease Conrtrol and Prevention (CDC) test method. Urine bacteria detection by automated methodOrdered By: Obie Hylton on 08-21-2022 Bacteria Auto Ql (U) None seen None Seen [facility] Urine clarity by refractomet ry automatedOrdered By: Obie Hylton on 08-21-2022 Clarity Refractometry automated (U) Clear Clear [facility] Urine glucose measurement by automated test strip (mass/volume)Ordered By: Obie Hylton on 08-21-2022 Glucose Auto test strip (U) [Mass/Vol] Normal mg/dL Normal [facility] Urine hemoglobin detection b y automated test stripOrdered By: Obie Hylton on 08-21-2022 Hemoglobin Auto test strip Ql (U) Trace Negative [facility] Urine leukocyte esterase det ection by automated test stripOrdered By: Obie Hylton on 08-21-2022 Leukocyte esterase Auto test strip Ql (U) 1+ Negative [facility] Urobilinogen Auto test strip (U) [Mass/Vol]Ordered By: Obie Hylton on 08-21-2022 Urobilinogen (U) [Mass/Vol] Normal mg/dL Normal [facility] WBC Auto (Bld) [#/Vol]Ordere d By: Obie Hylton on 08-21-2022 WBC (Bld) [#/Vol] 4.7 10*3/uL 3.8-11.6 [facility] pH Auto test strip (U)Ordere d By: Obie Hylton on 08-21-2022 pH (U) 7.0 [pH] 5.0-9.0 [facility] CHEMISTRYOrdered By: SYSTEM SYSTEM on 07-10-2022 Anion gap [Moles/Vol] 12 mmol/L Normal 6 - 16 mEq/L [facility] Remisol Calcium [Mass/Vol] 8.8 mg/dL Low 8.9 - 11. 1 mg/dL [facility] Chloride [Moles/Vol] 108 mmol/L Normal 101 - 1 11 mmol/L [facility] CO2 [Moles/Vol] 24 mmol/L Normal 21 - 31 mmol/L [facility] Cobalamin (Vitamin B12) [Mass/Vol] pg/mL Normal 50 - 1500 pg/mL [facility] Creatinine [Mass/Vol] 1.3 mg/dL Normal 0.5 - 1.3 mg/dL [facility] GFR/1.73 sq M.predicted among blacks MDRD (S/P/Bld) [Vol rate/Area] 48 mL/min/1.73 m2 Low >=59mL/min /1.73 m2 [facility] Chem S GFR/1.73 sq M.predicted among non-blacks MDRD (S/P/Bld) [Vol rate/Area] 40 mL/min/1.73 m2 Low >=59mL/min /1.73 m2 [facility] Chem S Glucose [Mass/Vol] 97 mg/dL Normal 55 - 199 mg/dL [facility] Remisol Magnesium [Mass/Vol] 2.2 mg/dL Normal 1.3 - 2 .4 mg/dL [facility] Remisol Potassium [Moles/Vol] 4.4 mmol/L Normal 3.5 - 5.3 mmol/L [facility] Remisol Sodium [Moles/Vol] 140 mmol/L Normal 135 - 145 mmol/L [facility] Remisol Urea nitrogen [Mass/Vol] 37 mg/dL High 5 - 21 mg/dL [facility] Remisol Urea nitrogen/Creatinine [Mass ratio] 28 mg/mg High 10 - 20 [facility] Remisol Albumin [Mass/volume] in Ser um or PlasmaOrdered By: Obie Hylton on 02-22-2022 Albumin [Mass/Vol] 3.5 g/dL 3.2-5.5 [facility] Automated erythrocytes count in urine sediment (number/area)Ordered By: Obie Hylton on 02-22-2022 RBC Auto (Urine sed) [#/Area] 3-4 [HPF] 0-4 [facility] Automated leukocytes count i n urine sediment (number/area)Ordered By: Obie Hylton on 02-22-2022 WBC Auto (Urine sed) [#/Area] 1-2 [HPF] 0-4 [facility] Basophils Auto (Bld) [#/Vol] Ordered By: Obie Hylton on 02-22-2022 Basophils (Bld) [#/Vol] 0.0 10*3/uL 0.0-0.2 [facility] Basophils/100 WBC Auto (Bld) Ordered By: Obie Hylton on 02-22-2022 Basophils/100 WBC (Bld) 0.2 % . [facility] Bilirubin Test strip Ql (U)O rdered By: Obie Hylton on 02-22-2022 Bilirubin Ql (U) Negative Negative [facility] Blood hemoglobin measurement (mass/volume)Ordered By: Obie Hylton on 02-22-2022 Hemoglobin (Bld) [Mass/Vol] 12.3 g/dL 11.8-15.4 [facility] Blood leukocytes automated c ount (number/volume)Ordered By: Obie Hylton on 02-22-2022 WBC (Bld) [#/Vol] 5.1 10*3/uL 4.5-11.0 [facility] Color Auto (U)Ordered By: Cindy gonzalezjesus Warner on 02-22-2022 Color (U) Yellow Yellow [facility] Creatinine and Glomerular fi ltration rate.predicted panel (S/P/Bld)Ordered By: Obie Hylton on 02-22-2022 Creatinine [Mass/Vol] 1.16 mg/dL 0.44-1.03 [facility] Eosinophils Auto (Bld) [#/Vo l]Ordered By: Obie Hylton on 02-22-2022 Eosinophils (Bld) [#/Vol] 0.1 10*3/uL 0.0-0.45 [facility] Eosinophils/100 WBC Auto (Bl d)Ordered By: Obie Hylton on 02-22-2022 Eosinophils/100 WBC (Bld) 1.4 % . [facility] Erythrocyte distribution wid th Auto (RBC) [Ratio]Ordered By: Obie Hylton on 02-22-2022 Erythrocyte distribution width (RBC) [Ratio] 15.3 % 11.9-15.3 [facility] Estimated glomerular filtrat ion rate (GFR) non- AmericanOrdered By: Obie Hylton on 02-22-2022 GFR/1.73 sq M.predicted among non-blacks MDRD (S/P/Bld) [Vol rate/Area] 45 mL/Min [facility] Globulin Calc (S) [Mass/Vol] Ordered By: Obie Hylton on 02-22-2022 Globulin (S) [Mass/Vol] 2.5 g/dL [facility] Hematocrit Auto (Bld) [Volum e fraction]Ordered By: Obie Hylton on 02-22-2022 Hematocrit (Bld) [Volume fraction] 36.6 % 34.0-46.4 [facility] Ketones Auto test strip (U) [Mass/Vol]Ordered By: Obie Hylton on 02-22-2022 Ketones (U) [Mass/Vol] Negative Negative [facility] Laboratory - Hematology and Cell countsOrdered By: Obie Hylton on 02-22-2022 Nucleated RBC/100 WBC (Bld) [Ratio] 0.0 % 0-0.5 [facility] Laboratory - UrinalysisOrder ed By: Obie Hylton on 02-22-2022 Hyaline casts LM Ql (Urine sed) None seen [LPF] 0-8 [facility] Lymphocytes Auto (Bld) [#/Vo l]Ordered By: Obie Hylton on 02-22-2022 Lymphocytes (Bld) [#/Vol] 1.1 10*3/uL 1.00-4.8 [facility] Lymphocytes/100 WBC Auto (Bl d)Ordered By: Obie Hylton on 02-22-2022 Lymphocytes/100 WBC (Bld) 22.2 % . [facility] MCH Auto (RBC) [Entitic mass ]Ordered By: Obie Hylton on 02-22-2022 MCH (RBC) [Entitic mass] 33.0 pg 24.7-34.3 [facility] MCHC Auto (RBC) [Mass/Vol]Or dered By: Obie Hylton on 02-22-2022 MCHC (RBC) [Mass/Vol] 33.5 g/dL 32.0-35.0 [facility] MCV Auto (RBC) [Entitic vol] Ordered By: Obie Hylton on 02-22-2022 MCV (RBC) [Entitic vol] 98.5 fL 80-100 [facility] Monocytes Auto (Bld) [#/Vol] Ordered By: Obie Hylton on 02-22-2022 Monocytes (Bld) [#/Vol] 0.5 10*3/uL 0.0-0.8 [facility] Monocytes/100 WBC Auto (Bld) Ordered By: Obie Hylton on 02-22-2022 Monocytes/100 WBC (Bld) 9.0 % . [facility] Neutrophils Auto (Bld) [#/Vo l]Ordered By: Obie Hylton on 02-22-2022 Neutrophils (Bld) [#/Vol] 3.5 10*3/uL 1.8-7.7 [facility] Neutrophils/100 WBC Auto (Bl d)Ordered By: Obie Hylton on 02-22-2022 Neutrophils/100 WBC (Bld) 67.2 % . [facility] Nitrite Test strip Ql (U)Ord ered By: Obie Hylton on 02-22-2022 Nitrite Ql (U) Negative Negative [facility] No Panel InformationOrdered By: Obie Hylton on 02-22-2022 Estimated GFR () 55 mL/Min [facility] Comment on above: GFR estimated refere nce range: According to KDOQI guidelines, <60 ml/min/1.73m2 is sufficient to diagnose a patient with chronic kidney disease. Pharmacy Creatinine Clearance (Chem N/A [facility] Platelet mean volume Auto (B ld) [Entitic vol]Ordered By: Obie Hylton on 02-22-2022 Platelet mean volume (Bld) [Entitic vol] 8.7 fL 6.3-10.7 [facility] Platelets Auto (Bld) [#/Vol] Ordered By: Obie Hylton on 02-22-2022 Platelets (Bld) [#/Vol] 182 10*3/uL 150-450 [facility] Protein Auto test strip (U) [Mass/Vol]Ordered By: Obie Hylton on 02-22-2022 Protein (U) [Mass/Vol] Negative Negative [facility] Protein [Mass/volume] in Ser um or PlasmaOrdered By: Obie Hylton on 02-22-2022 Protein [Mass/Vol] 6.0 g/dL 6.1-7.9 [facility] RBC Auto (Bld) [#/Vol]Ordere d By: Obie Hylton on 02-22-2022 RBC (Bld) [#/Vol] 3.72 10*6/uL 3.60-5.00 [facility] Serum or plasma alanine negro otransferase measurement without P-5'-P (enzymatic activiOrdered By: Obie Hylton on 02-22-2022 ALT No additional P-5'-P [Catalytic activity/Vol] 14 U/L 10-60 [facility] Serum or plasma albumin/glob ulin mass ratioOrdered By: Obie Hylton on 02-22-2022 Albumin/Globulin [Mass ratio] 1.4 {ratio} [facility] Serum or plasma alkaline glen sphatase measurement (enzymatic activity/volume)Ordered By: Obie Hylton on 02-22-2022 ALP [Catalytic activity/Vol] 54 U/L 32-92 [facility] Serum or plasma aspartate am inotransferase measurement (enzymatic activity/volume)Ordered By: Obie Hylton on 02-22-2022 AST [Catalytic activity/Vol] 17 U/L 10-42 [facility] Serum or plasma calcium olivia urement (mass/volume)Ordered By: Obie Hylton on 02-22-2022 Calcium [Mass/Vol] 9.0 mg/dL 8.2-10.2 [facility] Serum or plasma chloride wilner surement (moles/volume)Ordered By: Obie Hylton on 02-22-2022 Chloride [Moles/Vol] 107 mmol/L 95-114 [facility] Serum or plasma glucose olivia urement (mass/volume)Ordered By: Obie Hylton on 02-22-2022 Glucose [Mass/Vol] 90 mg/dL 70-100 [facility] Comment on above: ADA recommended refe rence range Random Glucose Reference Range is dependent on time and content of last meal. Glucose of more than 200 mg/dL in a nonstressed, ambulatory subject supports the diagnosis of Diabetes Mellitus. ADA recommended refe rence rangeRandom Glucose Reference Range is dependent on time and content of last meal. Glucose of more than 200 mg/dL in a nonstressed, ambulatory subject supports the diagnosis of Diabetes Mellitus. Serum or plasma potassium me asurement (moles/volume)Ordered By: Obie Hylton on 02-22-2022 Potassium [Moles/Vol] 4.2 mmol/L 3.5-5.1 [facility] Serum or plasma sodium measu rement (moles/volume)Ordered By: Obie Hylton on 02-22-2022 Sodium [Moles/Vol] 139 mmol/L 136-146 [facility] Serum or plasma total biliru bin measurement (mass/volume)Ordered By: Obie Hylton on 02-22-2022 Bilirubin [Mass/Vol] 0.5 mg/dL 0.3-1.2 [facility] Serum or plasma total carbon dioxide measurement (moles/volume)Ordered By: Obie Hylton on 02-22-2022 CO2 [Moles/Vol] 24.9 mmol/L 22.0-30.[address] [facility] Serum or plasma urea nitroge n measurement (mass/volume)Ordered By: Obie Hylton on 02-22-2022 Urea nitrogen [Mass/Vol] 25 mg/dL 9- [facility] Specific gravity Auto test s trip (U) [Rel density]Ordered By: Obie Hylton on 02-22-2022 Specific gravity (U) [Rel density] 1.015 1.001-1.03 0 [facility] Squamous epithelial cells de tection in urine sediment by light microscopyOrdered By: Obie Hylton on 02-22-2022 Epithelial cells.squamous LM Ql (Urine sed) 0-1 [HPF] 0-2 [facility] Urine bacteria detection by automated methodOrdered By: Obie Hylton on 02-22-2022 Bacteria Auto Ql (U) None seen None Seen [facility] Urine clarity by refractomet ry automatedOrdered By: Obie Hylton on 02-22-2022 Clarity Refractometry automated (U) Clear Clear [facility] Urine glucose measurement by automated test strip (mass/volume)Ordered By: Obie Hylton on 02-22-2022 Glucose Auto test strip (U) [Mass/Vol] Normal mg/dL Normal [facility] Urine hemoglobin detection b y automated test stripOrdered By: Obie Hylton on 02-22-2022 Hemoglobin Auto test strip Ql (U) 1+ Negative [facility] Urine leukocyte esterase det ection by automated test stripOrdered By: Obie Hylton on 02-22-2022 Leukocyte esterase Auto test strip Ql (U) Negative Negative [facility] Urobilinogen Auto test strip (U) [Mass/Vol]Ordered By: Obie Hylton on 02-22-2022 Urobilinogen (U) [Mass/Vol] Normal mg/dL Normal [facility] pH Auto test strip (U)Ordere d By: Obie Hylton on 02-22-2022 pH (U) 6.0 [pH] 5.0-9.0 [facility] WU DIGITAL SCREEN BILA TERALon 02-01-2022 BI-RADS 1 - Negative, no evidence of malignancy. Normal interval followup in 12 months. OVERALL ASSESSMENT- NEGATIVE A letter of notification will be sent to the patient regarding the results. [facility] HISTORY: Screening. Family history of breast carcinoma. TECHNIQUE: Bilateral digital screening mammogram with CAD. 2-D and 3-D tomography. FINDINGS: Two views of each breast show scattered areas of fibroglandular density. No change from prior studies, most recent 01/20/2021. Suspicious calcifications: None. Suspicious mass: None. (If skin markers were applied, circles represent skin lesions and linear markers represent scars.) [facility] WU DIGITAL SCREEN BILA TERALOrdered By: Ishmael Valentin on 02-01-2022 [employer] Phone: [facility] WU DIGITAL SCREEN BILA TERALon 01-31-2022 Radiology Study observation (narrative) [employer] Phone: XR SHOULDER RIGHT (MIN 2 VIE WS)on 12-02-2021 FINDINGS/IMPRESSION: 1. No significant change since 08/10/2021. 2. Mild AC joint osteoarthrosis remains, with small marginal osteophytes. 3. Osseous ridging from chronic rotator cuff tendinopathy and small reactive subcortical cysts or surgical drill tracks remain in the greater tuberosity of the humerus. 4. No fracture, malalignment, or other acute bony abnormality is seen. [facility] CLINICAL HISTORY: Hi story of right rotator cuff repair surgery (Z75.155). RIGHT SHOULDER 3 VIEWS: COMPARISON: 08/10/2021. [facility] Norm Mcdonnell MD - 12/02/2021 CLINICAL HISTORY: History of right rotator cuff repair surgery (Z98.622). RIGHT SHOULDER 3 VIEWS: COMPARISON: 08/10/2021. IMPRESSION: FINDINGS/IMPRESSION: 1. No significant change since 08/10/2021. 2. Mild AC joint osteoarthrosis remains, with small marginal osteophytes. 3. Osseous ridging from chronic rotator cuff tendinopathy and small reactive subcortical cysts or surgical drill tracks remain in the greater tuberosity of the humerus. 4. No fracture, malalignment, or other acute bony abnormality is seen. [employer] Work Phone: XR SHOULDER RIGHT (MIN 2 VIE WS)Ordered By: Norm Mcdonnell on 12-02-2021 [employer] Work Phone: XR SHOULDER RIGHT (MIN 2 VIE WS)on 11-30-2021 Radiology Study observation (narrative) [employer] Work Phone: Microscopic Urinalysison - [facility] Bacteria, UA TRACE Abnormal None [facility] Epithelial Cells UA 0 TO 2 [facility] Interpretation and review of laboratory results Abnormal [facility] RBC, UA 0 TO 2 [facility] WBC, UA 0 TO 2 [facility] Urinalysis with Reflex to Cu ltureon 10-26-2021 Bilirubin Urine Negative NEGATIVE [facility] Color, UA Yellow Yellow [facility] Glucose, Ur Negative NEGATIVE [facility] Interpretation and review of laboratory results Abnormal [facility] Ketones Ql (U) Negative NEGATIVE [facility] Leukocyte esterase Test strip Ql (U) Negative NEGATIVE [facility] Nitrite, Urine Negative NEGATIVE [facility] pH, UA 5.5 [facility] Protein, UA Negative NEGATIVE [facility] Specific [place], UA 1.025 [facility] Turbidity UA Clear Clear [facility] Urine Hgb 2+ Abnormal NEGATIVE [facility] Urobilinogen, Urine Normal Normal [facility] Microscopic Urinalysison - [facility] Bacteria, UA 1+ Abnormal None [facility] Epithelial Cells UA 2 TO 5 /HPF [facility] Interpretation and review of laboratory results Abnormal [facility] RBC, UA 2 TO 5 [facility] WBC, UA 20 TO 50 0 /HPF [facility] Yeast, UA OCCASIONAL Abnormal None [facility] Urinalysison 10-14-2021 Bilirubin Urine Negative [facility]IVE [facility] Color, UA Yellow Yellow [facility] Glucose, Ur Negative NEGATIVE [facility] Interpretation and review of laboratory results Abnormal [facility] Ketones Ql (U) Negative NEGATIVE [facility] Leukocyte esterase Test strip Ql (U) 2+ Abnormal NEGATIVE [facility] Nitrite, Urine Negative NEGATIVE [facility] pH, UA 6.0 [facility] Protein, UA TRACE Abnormal NEGATIVE [facility] Specific [place], UA 1.020 [facility] Turbidity UA Hazy Abnormal Clear [facility] Urinalysis Comments [facility] Urine Hgb 2+ Abnormal NEGATIVE [facility] Urobilinogen, Urine Normal Normal [facility] XR SHOULDER RIGHT (MIN 2 VIE WS)on 08-10-2021 Mild degenerative changes. No acute process. [facility] HISTORY: Pain status post right shoulder arthroscopy TECHNIQUE: 3 views of the right shoulder were obtained COMPARISON: 04/27/2021 FINDINGS: There are mild degenerative changes of acromioclavicular joint. No fracture, dislocation or acute osseous abnormality seen. [facility] John Jauregui MD - 08/10/2021 HISTORY: Pain status post right shoulder arthroscopy TECHNIQUE: 3 views of the right shoulder were obtained COMPARISON: 04/27/2021 FINDINGS: There are mild degenerative changes of acromioclavicular joint. No fracture, dislocation or acute osseous abnormality seen. IMPRESSION: Mild degenerative changes. No acute process. [facility] [employer] Work Phone: Radiology Study observation (narrative) [facility] Work Phone: XR SHOULDER RIGHT (MIN 2 VIE WS)Ordered By: John Jauregui on 08-10-2021 [facility] [employer] Work Phone: MRI Shoulder w/o Righton MRI Shoulder w/o Right HISTORY: Pain with decreased range of motion after multiple falls. TECHNIQUE: Routine non-contrast MRI of the right shoulder COMPARISON: No prior images. X-ray report from 04/27/2021. RESULT: Rotator Cuff Tendons: Mild to moderate tendinosis involving supraspinatus with an area of high-grade partial thickness articular sided tearing involving the distal anterior fibers at the footplate measuring approximately 0.7 cm AP by 1.3 cm transverse. Mild tendinosis involving infraspinatus, and subscapularis, without tear. Teres minor appears intact. Long Head Biceps Tendon: Intact with appropriate location. Muscle: Muscle bulk and signal intensity are within normal limits. Labrum: Apparent tear involving the anterior superior labrum with associated lobular cystic lesion, likely representing paralabral cyst. This measures approximately 3.5 x 1.7 x 1.4 cm and extends medially along the anterior glenoid and also abuts the inferior coracoid. Differential also includes ganglion cyst arising from the glenohumeral joint. Bones and Marrow: No evidence of fracture or bone marrow replacing process. Glenohumeral Joint: Osteophytes without distinct full-thickness chondral defect. No joint effusion. Thickening of the joint capsule with increased signal, associated with adhesive capsulitis. Acromioclavicular Joint: Moderate degenerative changes. Other: No other significant abnormality. IMPRESSION: Rotator cuff tendinosis with area of high-grade partial thickness articular sided tearing involving distal supraspinatus. No distinct full-thickness tear. Apparent tearing of the anterior superior labrum. Associated adjacent lobular cystic lesion, likely either representing paralabral cyst or ganglion cyst. Findings associated with adhesive capsulitis. Report reported and signed by Grayson Coronado on 07/12/2021 1110 Normal [facility] [employer] XR SHOULDER RIGHT (MIN 2 VIE WS)Ordered By: Angelito Meyer on 04-27-2021 Degenerative changes not unusual for age at the acromioclavicular joint. [employer] Work Phone: EXAM: XR SHOULDER RI GHT (MIN 2 VIEWS) HISTORY: M25.511. 75-year-old female right shoulder pain. COMPARISON: None. TECHNIQUE: 3 views right shoulder, 4 images. FINDINGS: Moderate degenerative change acromioclavicular joint. Minimal narrowing glenohumeral joint. Negative for calcific bursitis. [employer] Phone: Magdiel, Mhpn Incoming R adiant Results From [employer] - 04/27/2021 12:21 PM EDT EXAM: XR SHOULDER RIGHT (MIN 2 VIEWS) HISTORY: M25.511. 75-year-old female right shoulder pain. COMPARISON: None. TECHNIQUE: 3 views right shoulder, 4 images. FINDINGS: Moderate degenerative change acromioclavicular joint. Minimal narrowing glenohumeral joint. Negative for calcific bursitis. IMPRESSION: Degenerative changes not unusual for age at the acromioclavicular joint. [employer] Phone: Front[employer] Phone: CBCOrdered By: Roni Dahl on 01-09-2021 Hematocrit (Bld) [Volume fraction] 33.2 % Low 36 - 46 % [employer] Phone: Hemoglobin.gastrointe stinal spec 1 Ql (Stl) 11.5 g/dL Low 12.0 - 16.0 g/dL [employer] Phone: Interpretation and review of laboratory results Abnormal [employer] Phone: MCH (RBC) [Entitic mass] 31.6 pg 26 - 34 pg [employer] Phone: MCHC (RBC) [Mass/Vol] 34.7 g/dL 31 - 3 7 g/dL [employer] Phone: MCV (RBC) [Entitic vol] 91.2 fL 80 - 100 fL [employer] Phone: NRBC Automated NOT REPORTED per 100 WBC [employer] Phone: Platelet distribution width (Bld) [Ratio] 15.6 % High 12.1 - 15.2 % [employer] Phone: Platelet mean volume (Bld) [Entitic vol] NOT REPORTED 6.0 - 12.0 fL [employer] Phone: Platelets (Bld) [#/Vol] 223 10*3/uL [employer] Phone: RBC (Bld) [#/Vol] 3.64 10*6/uL Low 4.0 - 5.2 m/uL [employer] Phone: WBC (Bld) [#/Vol] 4.1 10*3/uL [employer] Phone: [employer] Phone: CBCOrdered By: Roni Dahl on 12-09-2020 Hematocrit (Bld) [Volume fraction] 34.2 % Low 36 - 46 % [employer] Phone: Hemoglobin.gastrointe stinal spec 1 Ql (Stl) 11.6 g/dL Low 12.0 - 16.0 g/dL [employer] Phone: Interpretation and review of laboratory results Abnormal [employer] Phone: MCH (RBC) [Entitic mass] 30.6 pg 26 - 34 pg [employer] Phone: MCHC (RBC) [Mass/Vol] 33.8 g/dL 31 - 3 7 g/dL [employer] Phone: MCV (RBC) [Entitic vol] 90.7 fL 80 - 100 fL [employer] Phone: NRBC Automated NOT REPORTED per 100 WBC [employer] Phone: Platelet distribution width (Bld) [Ratio] 14.1 % 12.1 - 15.2 % [employer] Phone: Platelet mean volume (Bld) [Entitic vol] NOT REPORTED 6.0 - 12.0 fL [employer] Phone: Platelets (Bld) [#/Vol] 365 10*3/uL [employer] Phone: RBC (Bld) [#/Vol] 3.78 10*6/uL Low 4.0 - 5.2 m/uL [employer] Phone: WBC (Bld) [#/Vol] 6.3 10*3/uL [employer] Phone: [employer] Phone: CBC Auto DifferentialOrdered By: Darryl Sandoval on 11-27-2020 Absolute Eos # 0.16 [employer] Work Phone: Absolute Immature Granulocyte 0.35 High [employer] Work Phone: Absolute Lymph # 1.23 codebender [facility] Work Phone: Absolute [place] # 0.95 [employer] [facility] Work Phone: Basophils (Bld) [#/Vol] 10*3/uL [employer] Work Phone: Basophils/100 WBC (Bld) 0 % 0 - 2 % [employer] Work Phone: Differential Type NOT REPORTED [employer] Work Phone: Eosinophils/100 WBC (Bld) 2 % 1 - 4 % [employer] Phone: Hematocrit (Bld) [Volume fraction] 34.3 % Low 36.3 - 47.1 % [employer] Phone: Hemoglobin.gastrointe stinal spec 1 Ql (Stl) 11.0 g/dL Low 11.9 - 15.1 g/dL [employer] Phone: Immature granulocytes/100 WBC (Bld) 5 % High 0 [employer] Work Phone: Interpretation and review of laboratory results Abnormal [employer] Phone: Lymphocytes/100 WBC (Bld) 16 % Low 24 - 43 % [employer] Work Phone: MCH (RBC) [Entitic mass] 30.5 pg 25.2 - 33.5 pg [employer] Work Phone: MCHC (RBC) [Mass/Vol] 32.1 g/dL 28.4 - 34.8 g/dL [employer] Phone: MCV (RBC) [Entitic vol] 95.0 fL 82.6 - 102.9 fL [employer] Phone: Monocytes/100 WBC (Bld) 12 % 3 - 12 % [employer] Phone: NRBC Automated 0.0 0.0 per 100 WBC [employer] Phone: Platelet distribution width (Bld) [Ratio] 13.3 % 11.8 - 14.4 % [employer] Phone: Platelet Estimate NOT REPORTED [employer] Phone: Platelet mean volume (Bld) [Entitic vol] 9.7 fL 8.1 - 13.5 fL [employer] Phone: Platelets (Bld) [#/Vol] 242 10*3/uL [employer] Phone: RBC (Bld) [#/Vol] 3.61 10*6/uL Low 3.95 - 5.11 m/uL [employer] Phone: RBC (Bld) [#/Vol] NOT REPORTED [employer] Phone: Segmented neutrophils/100 WBC (Bld) 65 % 36 - 65 % [employer] Phone: Segs Absolute 5.07 [employer] Work Phone: WBC (Bld) [#/Vol] 7.8 10*3/uL [employer] Phone: WBC (Bld) [#/Vol] NOT REPORTED [employer] Phone: Front[employer] Phone: COVID-19, RapidOrdered By: Vazquez Sandoval on 11-27-2020 SARS-CoV-2 (COVID-19) RNA JUAQUIN+probe Ql (Unsp spec) Not detected Not Detected [employer] Phone: Comment on above: Rapid NAAT: The specimen is NEGATIVE for SARS-CoV-2, the novel coronavirus associated with COVID-19. The ID NOW COVID-19 assay is designed to detect the virus that causes COVID-19 in patients with signs and symptoms of infection who are suspected of COVID-19. An individual without symptoms of COVID-19 and who is not shedding SARS-CoV-2 virus would expect to have a negative (not detected) result in this assay. Negative results should be treated as presumptive and, if inconsistent with clinical signs and symptoms or necessary for patient management, should be tested with an alternative molecular assay. Negative results do not preclude SARS-CoV-2 infection and should not be used as the sole basis for patient management decisions. Fact sheet for Healthcare Providers: https://www.fda.gov/media/346289/download Fact sheet for Patients: https://www.fda.gov/media/263061/download Methodology: Isothermal Nucleic Acid Amplification Specimen Description .NASOPHARYNGEAL SWAB [employer] Phone: Front[employer] Phone: Comprehensive Metabolic Pane lOrdered By: Darryl Sandoval on 11-27-2020 Albumin [Mass/Vol] 3 g/dL Low 3.5 - 5.2 g/dL [employer] Phone: Albumin/Globulin [Mass ratio] 0.8 {ratio} Low [employer] Phone: ALP (Bld) [Catalytic activity/Vol] 154 U/L High 35 - 104 U/L [employer] Phone: ALT [Catalytic activity/Vol] 45 U/L High 5 - 33 U/L [employer] Phone: Anion gap [Moles/Vol] 11 mmol/L 9 - 17 mmol/L [employer] Phone: AST [Catalytic activity/Vol] 44 U/L High <32 [employer] Phone: Bilirubin [Mass/Vol] 0.35 mg/dL 0.3 - 1 .2 mg/dL [employer] Phone: Calcium [Mass/Vol] 9.4 mg/dL 8.6 - 10. 4 mg/dL [employer] Phone: Chloride [Moles/Vol] 103 mmol/L 98 - 10 7 mmol/L [employer] Phone: CO2 [Moles/Vol] 21 mmol/L 20 - 31 mmol/L [employer] Phone: Creatinine [Mass/Vol] 1 mg/dL High 0.50 - 0.90 mg/dL [employer] Phone: Free PSA/Total PSA [Mass fraction] 7.0 g/dL 6.4 - 8.3 g/dL [employer] Phone: GFR >60 >60 mL/min [employer] Phone: GFR Non- 54 mL/min Low >60 [employer] Phone: Glucose [Mass/Vol] 87 mg/dL 70 - 99 mg/dL [employer] Phone: Interpretation and review of laboratory results Abnormal [employer] Phone: Potassium [Moles/Vol] 4.1 mmol/L 3.7 - 5.3 mmol/L [employer] Phone: Sodium [Moles/Vol] 135 mmol/L 135 - 144 mmol/L [employer] Phone: Urea nitrogen (BldV) [Mass/Vol] 16 mg/dL 8 - 23 mg/dL [employer] Phone: Urea nitrogen/Creatinine (Bld) [Mass ratio] 16 [employer] Phone: [employer] Phone: Laboratory - Chemistry and C hemistry - challengeOrdered By: Darryl Sandoval on 11-27-2020 GFR/1.73 sq M.predicted MDRD (S/P/Bld) [Vol rate/Area] [employer] Phone: Comment on above: Average GFR for 70 o r more years old: 75 mL/min/1.73sq m Chronic Kidney Disease: <60 mL/min/1.73sq m Kidney failure: <15 mL/min/1.73sq m eGFR calculated using average adult body mass. Additional eGFR calculator available at: http://www.Everypost/multiple_crcl_2012.htm Stage 1: Some kidney damage normal GFR Stage 2: Mild kidney damage GFR 60-89 Stage 3: Moderate kidney damage GFR 30-59 Stage 4: Severe kidney damage GFR 15-29 Stage 5: Severe kidney damage GFR <15 ESRD - chronic treatment by dialysis or transplant LipaseOrdered By: Darrly farias on 11-27-2020 Lipase [Catalytic activity/Vol] 24 U/L 13 - 60 U/L [employer] Phone: [employer] Phone: MagnesiumOrdered By: Darryl Sandoval on 11-27-2020 Magnesium [Mass/Vol] 2.3 mg/dL 1.6 - 2 .6 mg/dL [employer] Phone: [employer] Work Phone: Urinalysis with MicroscopicO rdered By: Darryl Sandoval on 11-27-2020 - [employer] Phone: Amorphous, UA NOT REPORTED None [employer] Work Phone: Bacteria, UA TRACE Abnormal None [employer] Phone: Bilirubin Urine Negative NEGATIVE [employer] Work Phone: Casts UA NOT REPORTED /LPF [employer] Work Phone: Color, UA YELLOW YELLOW [employer] Work Phone: Crystals, UA NOT REPORTED None /HPF [employer] Work Phone: Epithelial Cells UA 2 TO 5 [employer] Work Phone: Glucose, Ur Negative NEGATIVE [employer] Work Phone: Interpretation and review of laboratory results Abnormal [employer] Work Phone: Ketones Ql (U) Negative NEGATIVE [employer] Work Phone: Leukocyte esterase Test strip Ql (U) Negative NEGATIVE [facility] [employer] Work Phone: Mucus, UA TRACE Abnormal None [facility] [employer] Work Phone: Nitrite, Urine Negative NEGATIVE [facility] Work Phone: Other Observations UA NOT REPORTED NOT REQ. M [facility] [employer] Work Phone: pH, UA 6.0 [facility] [employer] Work Phone: Protein, UA Negative NEGATIVE [facility] [employer] Work Phone: RBC, UA 2 TO 5 [facility] [employer] Work Phone: Renal Epithelial, UA NOT REPORTED 0 /HPF [facility] [employer] Work Phone: Specific [place], UA 1.025 [facility] [employer] Work Phone: Trichomonas, UA NOT REPORTED None [facility] [employer] Work Phone: Turbidity UA CLEAR CLEAR [facility] [employer] Work Phone: Urinalysis Comments NOT REPORTED [facility] [employer] Work Phone: Urine Hgb 1+ Abnormal NEGATIVE [facility] [employer] Work Phone: Urobilinogen, Urine Normal Normal [facility] [employer] Work Phone: WBC, UA 0 TO 2 [facility] [employer] Work Phone: Yeast, UA NOT REPORTED None [facility] [employer] Work Phone: [facility] [employer] Work Phone: Comprehensive Metabolic Pane lOrdered By: Roni Dahl on 11-22-2020 Albumin [Mass/Vol] 3.5 g/dL 3.5 - 5.2 g/dL [facility] [employer] Work Phone: Albumin/Globulin Ratio NOT REPORTED [facility] [employer] Work Phone: ALP (Bld) [Catalytic activity/Vol] 67 U/L 35 - 104 U/L [employer] Phone: ALT [Catalytic activity/Vol] 22 U/L 5 - 33 U/L [employer] Phone: Anion gap [Moles/Vol] 7 mmol/L Low 9 - 17 mmol/L [employer] Phone: AST [Catalytic activity/Vol] 21 U/L <32 [employer] Phone: Bilirubin [Mass/Vol] 0.35 mg/dL 0.30 - 1.20 mg/dL [employer] Phone: Calcium [Mass/Vol] 8.9 mg/dL 8.6 - 10. 4 mg/dL [employer] Phone: Chloride [Moles/Vol] 103 mmol/L 98 - 10 7 mmol/L [employer] Phone: CO2 [Moles/Vol] 26 mmol/L 20 - 31 mmol/L [employer] Phone: Creatinine [Mass/Vol] 0.98 mg/dL High 0.50 - 0.90 mg/dL [employer] Phone: Free PSA/Total PSA [Mass fraction] 6.3 g/dL Low 6.4 - 8.3 g/dL [employer] Phone: GFR >60 >60 mL/min [employer] Phone: GFR Non- 55 mL/min Low >60 [employer] Phone: GFR/1.73 sq M.predicted MDRD (S/P/Bld) [Vol rate/Area] [employer] Phone: Comment on above: Average GFR for 70 o r more years old: 75 mL/min/1.73sq m Chronic Kidney Disease: <60 mL/min/1.73sq m Kidney failure: <15 mL/min/1.73sq m eGFR calculated using average adult body mass. Additional eGFR calculator available at: http://www.[employer]/multiple_crcl_2012.htm GFR/1.73 sq M.predicted MDRD (S/P/Bld) [Vol rate/Area] NOT REPORTED [employer] Phone: Glucose [Mass/Vol] 94 mg/dL 70 - 99 mg/dL [employer] Phone: Interpretation and review of laboratory results Abnormal [employer] Phone: Potassium [Moles/Vol] 3.3 mmol/L Low 3.7 - 5.3 mmol/L [employer] Phone: Sodium [Moles/Vol] 136 mmol/L 135 - 144 mmol/L [employer] Phone: Urea nitrogen (BldV) [Mass/Vol] 16 mg/dL 8 - 23 mg/dL [employer] Phone: Urea nitrogen/Creatinine (Bld) [Mass ratio] 16 [employer] Phone: [employer] Phone: AmylaseOrdered By: Naida estrada on 11-18-2020 Amylase [Catalytic activity/Vol] 141 U/L High 28 - 100 U/L [employer] Phone: Interpretation and review of laboratory results Abnormal [employer] Phone: Basic Metabolic PanelOrdered By: Naida Grissom on 11-18-2020 Anion gap [Moles/Vol] 10 mmol/L 9 - 17 mmol/L [employer] Phone: Calcium [Mass/Vol] 8.9 mg/dL 8.6 - 10. 4 mg/dL [employer] Phone: Chloride [Moles/Vol] 105 mmol/L 98 - 10 7 mmol/L [employer] Phone: CO2 [Moles/Vol] 21 mmol/L 20 - 31 mmol/L [employer] Phone: Creatinine [Mass/Vol] 1.06 mg/dL High 0.50 - 0.90 mg/dL [employer] Phone: GFR >60 >60 mL/min [employer] Phone: GFR Non- 51 mL/min Low >60 [employer] Phone: GFR/1.73 sq M.predicted MDRD (S/P/Bld) [Vol rate/Area] [employer] Phone: Comment on above: Average GFR for 70 o r more years old: 75 mL/min/1.73sq m Chronic Kidney Disease: <60 mL/min/1.73sq m Kidney failure: <15 mL/min/1.73sq m eGFR calculated using average adult body mass. Additional eGFR calculator available at: http://www.Everypost/[employer]_crcl_2012.htm GFR/1.73 sq M.predicted MDRD (S/P/Bld) [Vol rate/Area] NOT REPORTED [employer] Phone: Glucose [Mass/Vol] 139 mg/dL High 70 - 99 mg/dL [employer] Phone: Interpretation and review of laboratory results Abnormal [employer] Phone: Potassium [Moles/Vol] 3.4 mmol/L Low 3.7 - 5.3 mmol/L [employer] Phone: Sodium [Moles/Vol] 136 mmol/L 135 - 144 mmol/L [employer] Phone: Urea nitrogen (BldV) [Mass/Vol] 22 mg/dL 8 - 23 mg/dL [employer] Phone: Urea nitrogen/Creatinine (Bld) [Mass ratio] 21 High [employer] Phone: [employer] Phone: CBC auto differentialOrdered By: Naida Grissom on 11-18-2020 Absolute Eos # 0.10 codebender [facility] Work Phone: Absolute Immature Granulocyte NOT REPORTED [facility] Work Phone: Absolute Lymph # 0.60 Low [facility] Work Phone: Absolute [place] # 0.40 [facility] Work Phone: Basophils (Bld) [#/Vol] 0.00 10*3/uL [facility] Work Phone: Basophils/100 WBC (Bld) 0 % 0 - 2 % [facility] Work Phone: Differential Type YES [facility] Work Phone: Eosinophils/100 WBC (Bld) 1 % 0 - 5 % [employer] Work Phone: Hematocrit (Bld) [Volume fraction] 37.6 % 36 - 46 % [facility] Work Phone: Hemoglobin.gastrointe stinal spec 1 Ql (Stl) 12.9 g/dL 12.0 - 16.0 g/dL [employer] Work Phone: Immature Granulocytes NOT REPORTED 0 % M [facility] Work Phone: Interpretation and review of laboratory results Abnormal [employer] Work Phone: Lymphocytes/100 WBC (Bld) 8 % Low 15 - 40 % [employer] Work Phone: MCH (RBC) [Entitic mass] 31.8 pg 26 - 34 pg [employer] Work Phone: MCHC (RBC) [Mass/Vol] 34.4 g/dL 31 - 3 7 g/dL [employer] Work Phone: MCV (RBC) [Entitic vol] 92.4 fL 80 - 100 fL [employer] Work Phone: Monocytes/100 WBC (Bld) 6 % 4 - 8 % [employer] Work Phone: NRBC Automated NOT REPORTED per 100 WBC [employer] Phone: Platelet distribution width (Bld) [Ratio] 14.1 % 12.1 - 15.2 % [employer] Phone: Platelet Estimate NOT REPORTED [employer] Phone: Platelet mean volume (Bld) [Entitic vol] NOT REPORTED 6.0 - 12.0 fL [employer] Phone: Platelets (Bld) [#/Vol] 179 10*3/uL [employer] Phone: RBC (Bld) [#/Vol] 4.07 10*6/uL 4.0 - 5.2 m/uL [employer] Phone: RBC (Bld) [#/Vol] NOT REPORTED [employer] Phone: Segmented neutrophils/100 WBC (Bld) 85 % High 47 - 75 % [employer] Work Phone: Segs Absolute 5.80 [employer] Work Phone: WBC (Bld) [#/Vol] 6.9 10*3/uL [employer] Phone: WBC (Bld) [#/Vol] NOT REPORTED [employer] Phone: [employer] Work Phone: Hepatic Function PanelOrdere d By: Naida Grissom on 11-18-2020 Albumin [Mass/Vol] 3.7 g/dL 3.5 - 5.2 g/dL [employer] Phone: Albumin/Globulin Ratio NOT REPORTED [employer] Phone: ALP (Bld) [Catalytic activity/Vol] 84 U/L 35 - 104 U/L [employer] Phone: ALT [Catalytic activity/Vol] 63 U/L High 5 - 33 U/L [employer] Work Phone: AST [Catalytic activity/Vol] 104 U/L High <32 [facility] Phone: Bilirubin [Mass/Vol] 0.49 mg/dL 0.30 - 1.20 mg/dL [facility] Phone: Bilirubin, Indirect CANNOT BE CALCULATED 0.00 - 1.00 mg/dL [facility] Work Phone: Bilirubin.indirect [Mass/Vol] mg/dL <0.31 mg/dL [facility] Phone: Free PSA/Total PSA [Mass fraction] 6.9 g/dL 6.4 - 8.3 g/dL [facility] Phone: Globulin NOT REPORTED 1.5 - 3.8 g/dL [facility] Phone: Interpretation and review of laboratory results Abnormal [facility] Work Phone: [facility] Work Phone: LipaseOrdered By: Naida Espinoza s on 11-18-2020 Lipase [Catalytic activity/Vol] 50 U/L 13 - 60 U/L [facility] Phone: Microscopic UrinalysisOrdere d By: Naida Grissom on 11-18-2020 - [employer] Phone: Amorphous, UA NOT REPORTED None codebender [facility] Work Phone: Bacteria, UA 1+ Abnormal None [facility] Work Phone: Casts UA NOT REPORTED /LPF [facility] [employer] Work Phone: Crystals, UA NOT REPORTED None /HPF [facility] Work Phone: Epithelial Cells UA 0 TO 2 /HPF [facility] Work Phone: Mucus, UA NOT REPORTED None [facility] [employer] Work Phone: Other Observations UA NOT REPORTED NOT REQ. M [facility] Work Phone: RBC, UA 0 TO 2 [facility] Work Phone: Renal Epithelial, UA NOT REPORTED 0 /HPF [facility] Work Phone: Trichomonas, UA NOT REPORTED None [facility] Work Phone: WBC, UA 2 TO 5 0 /HPF [facility] Work Phone: Yeast, UA NOT REPORTED None [facility] [employer] Work Phone: No Panel InformationOrdered By: Naida Grissom on 11-18-2020 Interpretation and review of laboratory results Abnormal [facility] [employer] Work Phone: [facility] [employer] Work Phone: [facility] [employer] Work Phone: Urinalysis, reflex to micros copicOrdered By: Naida Grissom on 11-18-2020 Bilirubin Urine Negative NEGATIVE [facility] Work Phone: Color, UA TARA Abnormal YELLOW [facility] [employer] Work Phone: Glucose, Ur Negative NEGATIVE [facility] [employer] Work Phone: Ketones Ql (U) Negative NEGATIVE [facility] Work Phone: Leukocyte esterase Test strip Ql (U) 1+ Abnormal NEGATIVE [facility] Work Phone: Nitrite, Urine Negative NEGATIVE [facility] Work Phone: pH, UA 5.0 [facility] [employer] Work Phone: Protein, UA Negative NEGATIVE [facility] Work Phone: Specific [place], UA 1.025 [facility] [employer] Work Phone: Turbidity UA CLEAR CLEAR [facility] [employer] Work Phone: Urinalysis Comments [facility] [employer] Work Phone: Urine Hgb 1+ Abnormal NEGATIVE [facility] [employer] Work Phone: Urobilinogen, Urine Normal Normal [employer] Phone: CBC Auto Differentialon 08-01 Basophils (Bld) [#/Vol] 0.00 10*3/uL [employer] Phone: Basophils/100 WBC (Bld) 0 % 0 - 2 % [employer] Phone: Differential Type YES [employer] Work Phone: Eosinophils (Bld) [#/Vol] 0.10 10*3/uL [employer] Phone: Eosinophils/100 WBC (Bld) 2 % 0 - 5 % [employer] Phone: Erythrocyte distribution width (RBC) [Ratio] 14.3 % 12.1 - 15.2 % [employer] Phone: Hematocrit (Bld) [Volume fraction] 36.5 % 36 - 46 % [employer] Phone: Hemoglobin (Bld) [Mass/Vol] 12.3 g/dL 12 - 16 g/dL [employer] Phone: Interpretation and review of laboratory results Abnormal [employer] Phone: Lymphocytes (Bld) [#/Vol] 1.20 10*3/uL [employer] Phone: Lymphocytes/100 WBC (Bld) 24 % 15 - 40 % [employer] Phone: MCH (RBC) [Entitic mass] 32.7 pg 26 - 34 pg [employer] Phone: MCHC (RBC) [Mass/Vol] 33.9 g/dL 31 - 3 7 g/dL [employer] Phone: MCV (RBC) [Entitic vol] 96.6 fL 80 - 100 fL [employer] Phone: Monocytes (Bld) [#/Vol] 0.50 10*3/uL [employer] Phone: Monocytes/100 WBC (Bld) 9 % High 4 - 8 % [employer] Work Phone: Platelet mean volume (Bld) [Entitic vol] NOT REPORTED 6 - 12 fL [employer] Work Phone: Platelets (Bld) [#/Vol] NOT REPORTED [employer] Work Phone: Platelets (Bld) [#/Vol] 223 10*3/uL [employer] Work Phone: RBC (Bld) [#/Vol] 3.77 10*6/uL Low 4 - 5.2 m/uL [employer] Work Phone: RBC morphology finding Nom (Bld) NOT REPORTED [employer] Phone: Segmented neutrophils/100 WBC (Bld) 65 % 47 - 75 % [employer] Work Phone: Segs Absolute 3.30 [employer] Work Phone: WBC (Bld) [#/Vol] 5.1 10*3/uL [employer] Work Phone: WBC (Bld) [#/Vol] NOT REPORTED per 100 WBC [employer] Phone: WBC Morphology NOT REPORTED [facility] Work Phone: Comprehensive Metabolic Pane trevor 08-11-2020 Albumin [Mass/Vol] 3.9 g/dL 3.5 - 5.2 g/dL [employer] Work Phone: Albumin/Globulin [Mass ratio] NOT REPORTED [employer] Work Phone: ALP [Catalytic activity/Vol] 76 U/L 35 - 104 U/L [employer] Work Phone: ALT [Catalytic activity/Vol] 16 U/L 5 - 33 U/L [employer] Work Phone: Anion gap [Moles/Vol] 10 mmol/L 9 - 17 mmol/L [employer] Phone: AST [Catalytic activity/Vol] 19 U/L <32 [employer] Phone: Bilirubin Ql (U) 0.35 mg/dL 0.3 - 1.2 mg/dL [employer] Phone: Bun/Cre Ratio 23 High [employer] Work Phone: Calcium [Mass/Vol] 9.9 mg/dL 8.6 - 10. 4 mg/dL [employer] Work Phone: Chloride [Moles/Vol] 105 mmol/L 98 - 10 7 mmol/L [employer] Phone: CO2 [Moles/Vol] 25 mmol/L 20 - 31 mmol/L [employer] Phone: Creatinine [Mass/Vol] 1.14 mg/dL High 0.5 - 0.9 mg/dL [employer] Phone: GFR 56 mL/min Low >60 [employer] Phone: GFR Non- 46 mL/min Low >60 [employer] Phone: GFR/1.73 sq M predicted among non-blacks MDRD (S/P/Bld) [Vol rate/Area] [employer] Phone: Comment on above: Average GFR for 70 o r more years old: 75 mL/min/1.73sq m Chronic Kidney Disease: <60 mL/min/1.73sq m Kidney failure: <15 mL/min/1.73sq m eGFR calculated using average adult body mass. Additional eGFR calculator available at: http://www.[employer].[place]/multiple_crcl_2012.htm GFR/1.73 sq M predicted among non-blacks MDRD (S/P/Bld) [Vol rate/Area] NOT REPORTED [employer] Phone: Glucose [Mass/Vol] 98 mg/dL 70 - 99 mg/dL [employer] Phone: Interpretation and review of laboratory results Abnormal [employer] Phone: Potassium [Moles/Vol] 4.3 mmol/L 3.7 - 5.3 mmol/L [employer] Phone: Protein [Mass/Vol] 6.7 g/dL 6.4 - 8.3 g/dL [employer] Phone: Sodium [Moles/Vol] 140 mmol/L 135 - 144 mmol/L [employer] Phone: Urea nitrogen [Mass/Vol] 26 mg/dL High 8 - 23 mg/dL [employer] Phone: Lipid Panelon 08-11-2020 Cholesterol [Mass/Vol] 126 mg/dL <200 [employer] Phone: Comment on above: Cholesterol Guidelines: <200 Desirable 200-240 Borderline >240 Undesirable Cholesterol in HDL [Mass/Vol] 45 mg/dL >40 [employer] Phone: Comment on above: HDL Guidelines: <40 Undesirable 40-59 Borderline >59 Desirable Cholesterol in LDL [Mass/Vol] 62 mg/dL 0 - 130 mg/dL [employer] Phone: Comment on above: LDL Guidelines: <100 Desirable 100-129 Near to/above Desirable 130-159 Borderline >159 Undesirable Direct (measured) LDL and calculated LDL are not interchangeable tests. Cholesterol in VLDL [Mass/Vol] NOT REPORTED 1 - 30 mg/dL [employer] Phone: Cholesterol.total/Cho lesterol in HDL [Mass ratio] 2.8 {ratio} <5 [employer] Phone: Triglyceride [Mass/Vol] 94 mg/dL <150 [employer] Phone: Comment on above: Triglyceride Guidelines: <150 Desirable 150-199 Borderline 200-499 High >499 Very high Based on AHA Guidelines for fasting triglyceride, March 2012. Magnesiumon 08-11-2020 Magnesium [Mass/Vol] 2.1 mg/dL 1.6 - 2 .6 mg/dL [employer] Phone: Otheron 08-11-2020 Immature granulocytes (Bld) [#/Vol] NOT REPORTED [employer] Phone: Patient Fasting?on 1 Patient Fasting? yes [employer] Work Phone: TSH with Reflexon 08-11-2020 TSH Qn 2.05 m[IU]/L [employer] Phone: Vitamin D 25 Hydroxyon 08-11 Vit D, 25-Hydroxy 50.9 ng/mL 30 - 100 ng/mL [employer] Phone: Comment on above: Reference Range: Vitamin D status Range Deficiency <20 ng/mL Mild Deficiency 20-30 ng/mL Sufficiency 30-100 ng/mL Toxicity >100 ng/mL CBC Auto Differentialon 10-0 -2019 Basophils (Bld) [#/Vol] 0.00 10*3/uL [place] Basophils/100 WBC (Bld) 1 % 0 - 2 % [place] Differential Type YES [facility] [place] Eosinophils (Bld) [#/Vol] 0.10 10*3/uL [facility], [place] Eosinophils/100 WBC (Bld) 1 % 0 - 5 % [place] Erythrocyte distribution width (RBC) [Ratio] 14.2 % 12.1 - 15.2 % [place] Hematocrit (Bld) [Volume fraction] 37.4 % 36 - 46 % [place] Hemoglobin (Bld) [Mass/Vol] 12.4 g/dL 12 - 16 g/dL [place] Interpretation and review of laboratory results Abnormal [place] Lymphocytes (Bld) [#/Vol] 1.50 10*3/uL [place] Lymphocytes/100 WBC (Bld) 24 % 15 - 40 % [place] MCH (RBC) [Entitic mass] 32.1 pg 26 - 34 pg [place] MCHC (RBC) [Mass/Vol] 33.2 g/dL 31 - 3 7 g/dL [place] MCV (RBC) [Entitic vol] 96.7 fL 80 - 100 fL [place] Monocytes (Bld) [#/Vol] 0.50 10*3/uL [place] Monocytes/100 WBC (Bld) 9 % High 4 - 8 % [place] Platelet mean volume (Bld) [Entitic vol] NOT REPORTED 6 - 12 fL [place] Platelets (Bld) [#/Vol] 205 10*3/uL [place] Platelets (Bld) [#/Vol] NOT REPORTED [place] RBC (Bld) [#/Vol] 3.87 10*6/uL Low 4 - 5.2 m/uL [place] RBC morphology finding Nom (Bld) NOT REPORTED [place] Segmented neutrophils/100 WBC (Bld) 65 % 47 - 75 % [place] Segs Absolute 4.10 [place] WBC (Bld) [#/Vol] NOT REPORTED per 100 WBC [place] WBC (Bld) [#/Vol] 6.2 10*3/uL [place] WBC Morphology NOT REPORTED [place], [place] CT Head WO Contraston 2019 CT head without cont rast CLINICAL: Dizziness multiple falls. TECHNIQUE: Contiguous transaxial images were obtained from skull base to vertex without administration of intravenous contrast. Dose reduction: mA and/or kV are were adjusted by automated exposure control software based upon patients height and weight. FINDINGS: Comparison made to head CT dated 05/04/2017. There is no focal scalp soft tissue swelling or acute calvarial fracture. The visualized globes and orbits are grossly normal. There is minimal ethmoid sinus mucosal thickening without air-fluid levels.. Bilateral mastoid air cells are clear. The ventricles and sulci are normal for age and symmetric bilaterally. There is mild periventricular and deep subcortical white matter low attenuation, most consistent with small vessel ischemic disease. There is no intraparenchymal hemorrhage, extraaxial fluid collection, mass lesion, or acute large vessel ischemia by noncontrast CT. There is intracranial atherosclerosis. [place], [place] Magdiel, Mhpn Incoming R adiant Results From [facility] - 03/31/2020 4:[address] head without contrast CLINICAL: Dizziness multiple falls. TECHNIQUE: Contiguous transaxial images were obtained from skull base to vertex without administration of intravenous contrast. Dose reduction: mA and/or kV are were adjusted by automated exposure control software based upon patients height and weight. FINDINGS: Comparison made to head CT dated 05/04/2017. There is no focal scalp soft tissue swelling or acute calvarial fracture. The visualized globes and orbits are grossly normal. There is minimal ethmoid sinus mucosal thickening without air-fluid levels.. Bilateral mastoid air cells are clear. The ventricles and sulci are normal for age and symmetric bilaterally. There is mild periventricular and deep subcortical white matter low attenuation, most consistent with small vessel ischemic disease. There is no intraparenchymal hemorrhage, extraaxial fluid collection, mass lesion, or acute large vessel ischemia by noncontrast CT. There is intracranial atherosclerosis. IMPRESSION: 1. No acute intracranial abnormality. 2. Stable chronic small vessel ischemic disease. 3. Intracranial atherosclerosis. If the patient has a focal neurologic deficit or there is clinical suspicion for acute cerebrovascular accident, brain MRI would be recommended for further evaluation. [place] 1. No acute intracra nial abnormality. 2. Stable chronic small vessel ischemic disease. 3. Intracranial atherosclerosis. If the patient has a focal neurologic deficit or there is clinical suspicion for acute cerebrovascular accident, brain MRI would be recommended for further evaluation. [place] Comprehensive Metabolic Pane l w/ Reflex to MGon 03-31-2020 Albumin [Mass/Vol] 4.2 g/dL 3.5 - 5.2 g/dL [place] Albumin/Globulin [Mass ratio] NOT REPORTED [place] ALP [Catalytic activity/Vol] 75 U/L 35 - 104 U/L [place] ALT [Catalytic activity/Vol] 11 U/L 5 - 33 U/L [place] Anion gap [Moles/Vol] 8 mmol/L Low 9 - 17 mmol/L [place] AST [Catalytic activity/Vol] 17 U/L <32 [place] Bilirubin Ql (U) 0.38 mg/dL 0.3 - 1.2 mg/dL [place] Bun/Cre Ratio 21 High [place], [place] Calcium [Mass/Vol] 9.1 mg/dL 8.6 - 10. 4 mg/dL [place] Chloride [Moles/Vol] 98 mmol/L 98 - 10 7 mmol/L [place] CO2 [Moles/Vol] 28 mmol/L 20 - 31 mmol/L [place] Creatinine [Mass/Vol] 1.04 mg/dL High 0.5 - 0.9 mg/dL [place] GFR >60 >60 mL/min [place] GFR Non- 52 mL/min Low >60 [place] GFR/1.73 sq M predicted among non-blacks MDRD (S/P/Bld) [Vol rate/Area] [place], [place] Comment on above: Average GFR for 70 o r more years old: 75 mL/min/1.73sq m Chronic Kidney Disease: <60 mL/min/1.73sq m Kidney failure: <15 mL/min/1.73sq m eGFR calculated using average adult body mass. Additional eGFR calculator available at: http://www.[employer]/multiple_crcl_2012.htm GFR/1.73 sq M predicted among non-blacks MDRD (S/P/Bld) [Vol rate/Area] NOT REPORTED [place], [place] Glucose [Mass/Vol] 94 mg/dL 70 - 99 mg/dL [place] Interpretation and review of laboratory results Abnormal [place] Potassium [Moles/Vol] 4.2 mmol/L 3.7 - 5.3 mmol/L [place] Protein [Mass/Vol] 7.1 g/dL 6.4 - 8.3 g/dL [place] Sodium [Moles/Vol] 134 mmol/L Low 135 - 144 mmol/L [place] Urea nitrogen [Mass/Vol] 22 mg/dL 8 - 23 mg/dL [place], [place] Microscopic Urinalysison Amorphous, UA NOT REPORTED None [place], [place] Bacteria, UA NOT REPORTED None [place], [place] Casts UA NOT REPORTED /LPF [place], [place] Crystals, UA NOT REPORTED None /HPF [place] Epithelial Cells UA 0 TO 2 /HPF [place], [place] Mucus, UA NOT REPORTED None [place] Other Observations UA NOT REPORTED NOT REQ. M [place] RBC (U) [#/Vol] 2 TO 5 [place] Renal Epithelial, UA NOT REPORTED 0 /HPF [place], [place] Trichomonas, UA NOT REPORTED [facility] [place] WBC, UA 0 TO 2 0 /HPF [place], [place] Yeast, UA NOT REPORTED None [place], [place] - [place] Otheron 03-31-2020 Immature granulocytes (Bld) [#/Vol] NOT REPORTED 0 % [place] TSH with Reflexon 03-31-2020 TSH Qn 1.98 m[IU]/L [place] Troponinon 03-31-2020 Troponin I.cardiac [Mass/Vol] [place], [place] Comment on above: Reference Range: <0.03 Within reference range. 0.03-0.09 Possible myocardial damage. Repeat at appropriate intervals to rule out chronic elevation. >= 0.10 Indicative of myocardial damage. Patients with high levels of Biotin oral intake (i.e >5mg/day) may have falsely decreased Troponin T levels. Samples collected within 8 hours of biotin intake may require additional information for diagnosis. Troponin T.cardiac [Mass/Vol] ug/L <0.03 ng/mL [place], [place] Comment on above: Troponin T results c annot be compared to Troponin-I results. Troponin, High Sensitivity NOT REPORTED 0 - 14 ng/L [place] Urinalysis, reflex to micros copicon 03-31-2020 Bilirubin Urine Negative NEGATIVE [place] Color, UA YELLOW YELLOW [place], [place] Glucose, Ur Negative NEGATIVE [place] Interpretation and review of laboratory results Abnormal [place], [place] Ketones Ql (U) Negative NEGATIVE [place] Leukocyte esterase Test strip Ql (U) Negative NEGATIVE [place] Nitrite, Urine Negative NEGATIVE [place] pH, UA 7.0 [place], [place] Protein (U) [Mass/Vol] Negative NEGATIVE [place] Specific [place], UA 1.005 [place], [place] Turbidity UA CLEAR CLEAR [place], [place] Urinalysis Comments [place] Urine Hgb TRACE Abnormal NEGATIVE [place] Urobilinogen, Urine Normal Normal [place] XR CHEST PORTABLEon 03-31-20 20 Negative chest. [place] Magdiel, Mh[employer] Incoming R adiant Results From [employer] - 03/31/2020 2:47 PM EDT EXAM: XR CHEST PORTABLE HISTORY: Reason for exam:->gen weakness 74-year-old female COMPARISON: Chest 07/07/2019 TECHNIQUE: AP portable chest 1424 hours FINDINGS: Heart size normal. Lungs clear. Bony thorax and upper abdomen normal. IMPRESSION: Negative chest. [place], [place] EXAM: XR CHEST STARLA BLE HISTORY: Reason for exam:->gen weakness 74-year-old female COMPARISON: Chest 07/07/2019 TECHNIQUE: AP portable chest 1424 hours FINDINGS: Heart size normal. Lungs clear. Bony thorax and upper abdomen normal. [place], [place] CBC Auto DifferentialOrdered By: Reagan Givens on 07-07-2019 Absolute Eos # 0.10 [facility] Work Phone: Absolute Immature Granulocyte NOT REPORTED [facility] Work Phone: Absolute Lymph # 1.20 [facility] Work Phone: Absolute [place] # 0.40 [facility] Work Phone: Basophils (Bld) [#/Vol] 0.00 10*3/uL [facility] Work Phone: Basophils/100 WBC (Bld) 0 % 0 - 2 % [facility] Work Phone: Differential Type YES [employer] [facility] [employer] Work Phone: Eosinophils/100 WBC (Bld) 2 % 0 - 5 % [employer] Work Phone: Erythrocyte distribution width (RBC) [Ratio] 14.6 % 12.1 - 15.2 % [employer] Phone: Hematocrit (Bld) [Volume fraction] 35.9 % Low 36 - 46 % [employer] Work Phone: Hemoglobin (Bld) [Mass/Vol] 12.2 g/dL 12 - 16 g/dL [employer] Work Phone: Immature Granulocytes NOT REPORTED 0 % M [employer] Work Phone: Interpretation and review of laboratory results Abnormal [employer] Phone: Lymphocytes/100 WBC (Bld) 28 % 15 - 40 % [employer] Work Phone: MCH (RBC) [Entitic mass] 33.2 pg 26 - 34 pg [employer] Work Phone: MCHC (RBC) [Mass/Vol] 34.1 g/dL 31 - 3 7 g/dL [employer] Phone: MCV (RBC) [Entitic vol] 97.3 fL 80 - 100 fL [employer] Work Phone: Monocytes/100 WBC (Bld) 10 % High 4 - 8 % [employer] Work Phone: MPV NOT REPORTED 6 - 12 fL [employer] Work Phone: NRBC Automated NOT REPORTED per 100 WBC [employer] Phone: Platelet Estimate NOT REPORTED [employer] Phone: Platelets (Bld) [#/Vol] 223 10*3/uL [employer] Work Phone: RBC (Bld) [#/Vol] 3.69 10*6/uL Low 4 - 5.2 m/uL [employer] Work Phone: RBC morphology finding Nom (Bld) NOT REPORTED [employer] Phone: Segmented neutrophils/100 WBC (Bld) 60 % 47 - 75 % [employer] Work Phone: Segs Absolute 2.60 [employer] Work Phone: WBC (Bld) [#/Vol] 4.4 10*3/uL [employer] Work Phone: WBC Morphology NOT REPORTED [employer] Work Phone: Comprehensive Metabolic Pane lOrdered By: Reagan Givens on 07-07-2019 Albumin [Mass/Vol] 4.2 g/dL 3.5 - 5.2 g/dL [employer] Phone: Albumin/Globulin Ratio NOT REPORTED [employer] Phone: ALP [Catalytic activity/Vol] 66 U/L 35 - 104 U/L [employer] Work Phone: ALT [Catalytic activity/Vol] 9 U/L 5 - 33 U/L [employer] Phone: Anion gap [Moles/Vol] 14 mmol/L 9 - 17 mmol/L [employer] Phone: AST [Catalytic activity/Vol] 17 U/L <32 [employer] Phone: Bilirubin [Mass/Vol] 0.32 mg/dL 0.3 - 1 .2 mg/dL [employer] Phone: Bun/Cre Ratio 17 [employer] Work Phone: Calcium [Mass/Vol] 10.2 mg/dL 8.6 - 10. 4 mg/dL [employer] Phone: Chloride [Moles/Vol] 103 mmol/L 98 - 10 7 mmol/L [employer] Phone: CO2 [Moles/Vol] 24 mmol/L 20 - 31 mmol/L [employer] Phone: Creatinine [Mass/Vol] 1.26 mg/dL High 0.5 - 0.9 mg/dL [employer] Phone: GFR 50 mL/min Low >60 [employer] Phone: GFR Comment [employer] Phone: Comment on above: Average GFR for 70 o r more years old: 75 mL/min/1.73sq m Chronic Kidney Disease: <60 mL/min/1.73sq m Kidney failure: <15 mL/min/1.73sq m eGFR calculated using average adult body mass. Additional eGFR calculator available at: http://www.[employer]/multiple_crcl_2012.htm GFR Non- 42 mL/min Low >60 [employer] Phone: GFR Staging NOT REPORTED [employer] Work Phone: Glucose [Mass/Vol] 106 mg/dL High 70 - 99 mg/dL [employer] Phone: Interpretation and review of laboratory results Abnormal [employer] Phone: Potassium [Moles/Vol] 3.8 mmol/L 3.7 - 5.3 mmol/L [employer] Phone: Protein [Mass/Vol] 7.4 g/dL 6.4 - 8.3 g/dL [employer] Phone: Sodium [Moles/Vol] 141 mmol/L 135 - 144 mmol/L [employer] Phone: Urea nitrogen [Mass/Vol] 22 mg/dL 8 - 23 mg/dL [employer] Phone: Lipid PanelOrdered By: Reagan Givens on 07-07-2019 Cholesterol [Mass/Vol] 169 mg/dL <200 [employer] Phone: Comment on above: Cholesterol Guidelines: <200 Desirable 200-240 Borderline >240 Undesirable Cholesterol in HDL [Mass/Vol] 54 mg/dL >40 [employer] Phone: Comment on above: HDL Guidelines: <40 Undesirable 40-59 Borderline >59 Desirable Cholesterol in LDL [Mass/Vol] 91 mg/dL 0 - 130 mg/dL [employer] Phone: Comment on above: LDL Guidelines: <100 Desirable 100-129 Near to/above Desirable 130-159 Borderline >159 Undesirable Direct (measured) LDL and calculated LDL are not interchangeable tests. Cholesterol.total/Cho lesterol in HDL [Mass ratio] 3.1 {ratio} <5 [employer] Phone: Triglyceride [Mass/Vol] 118 mg/dL <150 [employer] Phone: Comment on above: Triglyceride Guidelines: <150 Desirable 150-199 Borderline 200-499 High >499 Very high Based on AHA Guidelines for fasting triglyceride, March 2012. VLDL NOT REPORTED 1 - 30 mg/dL [employer] Phone: MagnesiumOrdered By: Reagan borja on 07-07-2019 Magnesium [Mass/Vol] 2.4 mg/dL 1.6 - 2 .6 mg/dL [employer] Phone: Patient Fasting?Ordered By: Reagan Givens on 07-07-2019 Patient Fasting? yes [employer], [employer] Phone: TSH with ReflexOrdered By: Jose Carlos Givens on 07-07-2019 TSH Qn 2.66 m[IU]/L [employer] Phone: Vitamin D 25 HydroxyOrdered By: Reagan Givens on 07-07-2019 Vit D, 25-Hydroxy 76.8 ng/mL 30 - 100 ng/mL [employer] Phone: Comment on above: Reference Range: Vitamin D status Range Deficiency <20 ng/mL Mild Deficiency 20-30 ng/mL Sufficiency 30-100 ng/mL Toxicity >100 ng/mL XR CHEST STANDARD (2 VW)Orde red By: Reagan Givens on 07-07-2019 Stable chest compare d to 05/30/2019. [employer] Phone: EXAM: XR CHEST (2 VW ) HISTORY: Reason for exam:->htn 73-year-old female. COMPARISON: Prior studies, most recent being a two-view chest 05/30/2019 TECHNIQUE: Two-view chest FINDINGS: Surgical clips right upper quadrant abdomen. Heart size normal. Lungs clear. Minimal degenerative change thoracic spine. [employer] Phone: Magdiel, [employer] Incoming R adiant Results From [employer] - 07/07/2019 10:15 AM EST EXAM: XR CHEST (2 VW) HISTORY: Reason for exam:->htn 73-year-old female. COMPARISON: Prior studies, most recent being a two-view chest 05/30/2019 TECHNIQUE: Two-view chest FINDINGS: Surgical clips right upper quadrant abdomen. Heart size normal. Lungs clear. Minimal degenerative change thoracic spine. IMPRESSION: Stable chest compared to 05/30/2019. [employer] Phone: Clostridium Difficile Toxin/ AntigenOrdered By: Roni Dahl on 04-23-2019 C DIFF AG + TOXIN Negative NEGATIVE [facility] [place] [place] Comment on above: No C. difficile anti gen and Toxin Detected. Specimen Description .FECES [place], [place] CNOVon 03-10-2018 CNOV Office Visit (SPNSMN) MARY JANE RIOS ([id number]) 1945 [facility] Time Provider Department03/10/18 9:55 AM ANDREWS FISH NSMN During your visit today, we recorded the following information about you: Pulse Respiration Blood pressure Weight 69/minute 18/minute 130/77 102.1 kg Height 1.626 [place] Fish MD 03/10/2018 10:50 AM [facility] SURGERY OUTPATIENT CONSULTSERVICE DATE: 03/10/2018PCP: JOHANNA AnneEFERRMEAGHAN PROVIDER:Lanie Prince, [id number] [facility] [id number] requested for an opinion regarding the evaluation and treatment ofback and leg pain. My final impression and recommendations will becommunicated back to the requesting physician by way of the shared medicalrecord or letter via US mail.Siddhartha Rios is a 72 year old female presenting with spouse and with son.CHIEF COMPLAINT: Back pain, difficulty with walkingHISTORY OF PRESENT ILLNESS: Mary Jane is a very pleasant 72 y/o F who presents toclinic today c/o intermittent low back pain and difficulty withstanding/walking for prolonged periods. She is s/p bilateral TKAs, and a leftTHA. She has right hip OA, and was been contemplating right ABBY. She walkswith a limp. She reports numbness/tingling in her feet. She reports b/lbuttock pain (L>R). No radiating pain past the knee. She reports mildheaviness/weakness in her legs with standing/walking.PRECIPITA TING EVENT: NoneDURATION OF SYMPTOMS: Greater Than 1 YearPAIN EVALUATION 03/10/2018 Pain Score: 2 Pain Location: Back-Lower Description: Stiffness;Tightness Duration Amount of Time: - Worse the past 2 months Duration Units: Years Frequency: Continuous Intervention: Medication;Exercise chiropractor, injections (2), pain management,Pain Radiation: down the right and left thighAggravating Factors: Standing, WalkingAlleviating Factors: NonePain Ratio: Pain in the back is greater than in the legDERMATOMAL DISTRIBUTION:Not applicableAMBULATORY STATUS: Impaired Community DistancesPREVIOUS CONSERVATIVE TREATMENTS:NSAIDs, PT, InjectionsPREVIOUS SPINAL SURGERY: NoneThere is no problem list on file for this patient.PAST MEDICAL HISTORYDiagnosis Date- PMH - PAST MEDICAL HISTORY OF left bundle branch block- Unspecified hypothyroidismPAST SURGICAL HISTORYProcedure Laterality Date- EXCISION OF LINGUAL TONSIL age 11- PAST SURGICAL HISTORY OF 2003 bowel resection secondary to diverticulitis- PAST SURGICAL HISTORY OF 2005 right ankle, bone spurs removed and repair of tendon- REMOVAL GALLBLADDER 2003- REVISE MEDIAN N/CARPAL TUNNEL SURG Carpal tunnel decomp, right wrist 1997, left wrist 2002- TOTAL ABDOM HYSTERECTOMY 1976 appendectomy at same time- TOTAL KNEE REPLACEMENT 2005 Knee replacement, total, right kneeNo family history on file.Social History Marital status: Spouse name: Years of education: Number of children:Social History Main Topics Smoking status: Never Smoker Smokeless tobacco: Never Used Alcohol use: No Drug use: Yes Types: MarijuanaALLERGIESAllergen Reactions- Gluten Flour GI Upset, Itching- Lexapro [Escitalopr* Itching- Morphine- Sulfa (Sulfonamide *MEDICATIONS:aspirin, enteric coated (ASPIRIN, ENTERIC COATED) 81 mg EC tablet Take 81 mg bymouth once daily.esomeprazole (NEXIUM) 40 mg capsule Take 40 mg by mouth twice daily.citalopram (CELEXA) 20 mg tablet Take 20 mg by mouth once daily.ibuprofen (MOTRIN) 200 mg tablet Take 200 mg by mouth every 6 hours as needed.loratadine (CLARITIN) 10 mg tablet Take 10 mg by mouth once daily.clarithromycin (BIAXIN) 500 mg tab Take by mouth every 12 hours.multivitamin with minerals (MULTIPLE VITAMIN-MINERALS) tablet Take 1 tablet bymouth once daily.Cholecalciferol, Vitamin D3, (VITAMIN D) 1,000 unit cap Take 1,000 Units bymouth once daily.triamterene-hydrochl orothiazide 37.5-25 mg per capsule Take 1 capsule by mouthonce daily.pilocarpine (SALAGEN) 5 mg tablet Take 5 mg by mouth three times daily.levothyroxine (SYNTHROID) 50 mcg tablet Take 50 mcg by mouth daily beforebreakfast.docusate sodium (STOOL SOFTENER) 100 mg capsule Take 100 mg by mouth twicedaily.pravastatin (PRAVACHOL) 40 mg tablet Take 40 mg by mouth once daily.diltiazem (CARDIZEM) 30 mg tablet Take 30 mg by mouth as needed.raloxifene (EVISTA) 60 mg tablet Take 60 mg by mouth once daily.topiramate(TOPAMAX 50 MG TAB) take two tablet dailyALPRAZOLAM 0.5 MG TAB take one or two tablets at HSpsyllium husk(METAMUCIL 0.52 G CAP) take as directedlevothyroxine sodium(LEVOTHROID 88 MCG TAB) take one tablet dailyrabeprazole sodium(ACIPHEX 20 MG TAB) take one tablet dailyEZETIMIBE 10 MG TAB take one tablet dailylansoprazole(PREVACID 15 MG CAP) take one tablet dailysertraline hcl(ZOLOFT 50 MG TAB) take one and one half tablet HSrizatriptan benzoate(MAXALT 10 MG TAB) take with migrainescalcium/mag/vitam in d2/zn/min(ASHLY-MAG ZINC II ORAL SUSP) take one tablet dailyREVIEW OF SYSTEMS:Remaining ROS reviewed and were negative.OBJECTIVE:PHYSICA L EXAMBP 130/77 Pulse 69 Resp 18 Ht 162.6 cm (5' 4 ) Wt 102.1 kg (225 lb) BMI 38.62 kg/m?GENERAL APPEARANCE: Well nourished, well developed, and no apparent distress.NEURO PSYCH: Patient oriented to person, place, and time. Mood pleasant. Benignaffect.MUSCULOSKELET AL VISUAL INSPECTION CERVICAL: WNL THORACIC: WNL LUMBAR: WNLMOTOR: 5/5 in all muscle groups.SENSORY: Normal sensory examGAIT: Antalgic. Trendelenburg gait compensated.NEURO TESTS:NoneDATA REVIEWOutside records reviewed. MRI report states mild degenerative scoliosis withlumbar spondylosis, mild to moderate stenosisASSESSMENT/PLANIMP RESSION:(M41.9) Degenerative scoliosis (primary encounter diagnosis)Mary Jane Rios will continue with medical management of his/her condition and hasa condition that requires further workup. I explained that her gait pattern(trendelenberg) is more consistent with underlying hip pathology. She doeshave symptoms consistent with lumbar stenosis/neurogenic claudication.1. Imaging: Lumbar X-Ray2. Follow up: Will try to locate CD with MRI lumbar spine, if not at [facility],patient will need to obtain a copy and mail for reviewThe majority of the visit was spent counseling and/or coordinating care for thepatient. The patient was counseled regarding back pain. Total face to facetime was 30 minutes.SIGNATURE: Andrews Fish MD PATIENT NAME: Mary Jane Hidalgo: March 10, 2018 : 10:44 AM PAGER:Referring Provider: LANIE PRINCE [[id number]]Allergies As of Date: 03/10/2018 Noted Allergy ReactionGLUTEN FLOUR 03/10/2018 8 - GI Upset 9 - ItchingLEXAPRO (ESCITALOPRAM OXALATE) 08/19/2007 9 - ItchingMORPHINE 07/04/2007SULFA (SULFONAMIDE ANTIBIOTICS) 07/04/2007Date Reviewed: 03/10/2018Reviewed by: Alanna Chang Ma - Fully AssessedReason for Visit: New Patient [172]Primary Visit Diagnosis:Degenerative scoliosis [M41.9]Order(s):XR LUMBAR LIMITED 2V AP/LAT [[id number]] Order #: [id number] FUTUREPrescriptions as of 03/10/2018 Sig: ASPIRIN 81 MG TABLET,DELAYED * Take 81 mg by mouth once tera* ESOMEPRAZOLE MAGNESIUM 40 MG * Take 40 mg by mouth twice sarmad* CITALOPRAM 20 MG TABLET Take 20 mg by mouth once tera* IBUPROFEN 200 MG TABLET Take 200 mg by mouth every 6 * LORATADINE 10 MG TABLET Take 10 mg by mouth once tera* CLARITHROMYCIN 500 MG TABLET Take by mouth every 12 hours. MULTIVITAMIN WITH MINERALS TA* Take 1 tablet by mouth once d* CHOLECALCIFEROL (VITAMIN D3) * Take 1,000 Units by mouth onc* TRIAMTERENE 37.5 MG-HYDROCHLO* Take 1 capsule by mouth once * PILOCARPINE 5 MG TABLET Take 5 mg by mouth three time* LEVOTHYROXINE 50 MCG TABLET Take 50 mcg by mouth daily be* DOCUSATE SODIUM 100 MG CAPSULE Take 100 mg by mouth twice da* PRAVASTATIN 40 MG TABLET Take 40 mg by mouth once tera* DILTIAZEM 30 MG TABLET Take 30 mg by mouth as needed. RALOXIFENE 60 MG TABLET Take 60 mg by mouth once tera* * TOPAMAX 50 MG TABLET take two tablet daily * ALPRAZOLAM 0.5 MG TABLET take one or two tablets at HS * METAMUCIL 0.52 GRAM CAPSULE take as directed * LEVOTHROID 88 MCG TABLET take one tablet daily * ACIPHEX 20 MG TABLET,DELAYED * take one tablet daily * EZETIMIBE 10 MG TABLET take one tablet daily * PREVACID 15 MG CAPSULE,DELAYE* take one tablet daily * ZOLOFT 50 MG TABLET take one and one half tablet * * MAXALT 10 MG TABLET take with migraines * ASHLY-MAG ZINC II ORAL SUSPENSI* take one tablet dailyProblem List As Of Date: 03/10/2018(None) Status:Closed by ANDREWS FISH MD on 03/10/18 Normal [facility] PROGRESSon 03-10-2018 Protein mass conc HNO ID: [id number] thor: Katelin Hollingsworth RtService: (none)Author Type: (none)Type: Progress NotesFiled: 03/10/2018 11:05 AMNote Text: Radiology Service Progress NotePATIENT NAME: Mary Jane SinghRN: [id number] OF SERVICE: March 10, 2018TIME: 11:04 AMPATIENT IDENTITY VERIFICATION COMPLETED USING TWO (2) METHODS: Patientconfirmed name verbally and Date of .PATIENT GENDER DATA: Female. status: : NoBreastfeeding status: NO.PATIENT RELEVANT IMPLANT DATA REVIEWED: Not ApplicableRADIOLOGY DEPARTMENT: General X-ray: Exam(s) Completed: Spine X-Ray(s):Lumbar AP / LAT / [id number] IV DATA: Not applicableSIGNED BY: Katelin Hollingsworth RtSept2017 11:04 AM Normal [facility] Protein mass conc HNO ID: [id number] thor: Andrews Reaganervice: (none)Author Type: PhysicianType: Progress NotesFiled: 03/10/2018 10:50 AMNote Text:SPINE SURGERY OUTPATIENT CONSULTSERVICE DATE: 03/10/2018PCP: Roni Motta [facility]:Lanie Prince, [id number] [place] [address]Ciyzkns requested for an opinion regarding the evaluation and treatmentof back and leg pain. My final impression and recommendations will becommunicated back to the requesting physician by way of the shared medicalrecord or letter via [place] mail.Siddhartha Rios is a 72 year old female presenting with spouse and with son.CHIEF COMPLAINT: Back pain, difficulty with walkingHISTORY OF PRESENT ILLNESS: Mary Jane is a very pleasant 72 y/o F whopresents to clinic today c/o intermittent low back pain and difficultywith standing/walking for prolonged periods. She is s/p bilateral TKAs,and a left ABBY. She has right hip OA, and was been contemplating rightTHA. She walks with a limp. She reports numbness/tingling in her feet.She reports b/l buttock pain (L>R). No radiating pain past the knee. Shereports mild heaviness/weakness in her legs with standing/walking.PRECIPITA TING EVENT: NoneDURATION OF SYMPTOMS: Greater Than 1 YearPAIN EVALUATION 03/10/2018 Pain Score: 2 Pain Location: Back-Lower Description: Stiffness;Tightness Duration Amount of Time: - Worse the past 2 months Duration Units: Years Frequency: Continuous Intervention: Medication;Exercise chiropractor, injections (2), pain management,Pain Radiation: down the right and left thighAggravating Factors: Standing, WalkingAlleviating Factors: NonePain Ratio: Pain in the back is greater than in the legDERMATOMAL DISTRIBUTION:Not applicableAMBULATORY STATUS: Impaired Community DistancesPREVIOUS CONSERVATIVE TREATMENTS:NSAIDs, PT, InjectionsPREVIOUS SPINAL SURGERY: NoneThere is no problem list on file for this patient.PAST MEDICAL HISTORYDiagnosis Date- PMH - PAST MEDICAL HISTORY OF left bundle branch block- Unspecified hypothyroidismPAST SURGICAL HISTORYProcedure Laterality Date- EXCISION OF LINGUAL TONSIL age 11- PAST SURGICAL HISTORY OF 2003 bowel resection secondary to diverticulitis- PAST SURGICAL HISTORY OF 2005 right ankle, bone spurs removed and repair of tendon- REMOVAL GALLBLADDER 2003- REVISE MEDIAN N/CARPAL TUNNEL SURG Carpal tunnel decomp, right wrist 1997, left wrist 2002- TOTAL ABDOM HYSTERECTOMY 1977 appendectomy at same time- TOTAL KNEE REPLACEMENT 2005 Knee replacement, total, right kneeNo family history on file.Social History Marital status: Spouse name: Years of education: Number of children:Social History Main Topics Smoking status: Never Smoker Smokeless tobacco: Never Used Alcohol use: No Drug use: Yes Types: MarijuanaALLERGIESAllergen Reactions- Gluten Flour GI Upset, Itching- Lexapro [Escitalopr* Itching- Morphine- Sulfa (Sulfonamide *MEDICATIONS:aspirin, enteric coated (ASPIRIN, ENTERIC COATED) 81 mg EC tablet Take 81mg by mouth once daily.esomeprazole (NEXIUM) 40 mg capsule Take 40 mg by mouth twice daily.citalopram (CELEXA) 20 mg tablet Take 20 mg by mouth once daily.ibuprofen (MOTRIN) 200 mg tablet Take 200 mg by mouth every 6 hours asneeded.loratadine (CLARITIN) 10 mg tablet Take 10 mg by mouth once daily.clarithromycin (BIAXIN) 500 mg tab Take by mouth every 12 hours.multivitamin with minerals (MULTIPLE VITAMIN-MINERALS) tablet Take 1tablet by mouth once daily.Cholecalciferol, Vitamin D3, (VITAMIN D) 1,000 unit cap Take 1,000 Unitsby mouth once daily.triamterene-hydrochl orothiazide 37.5-25 mg per capsule Take 1 capsule bymouth once daily.pilocarpine (SALAGEN) 5 mg tablet Take 5 mg by mouth three times daily.levothyroxine (SYNTHROID) 50 mcg tablet Take 50 mcg by mouth daily beforebreakfast.docusate sodium (STOOL SOFTENER) 100 mg capsule Take 100 mg by mouth twicedaily.pravastatin (PRAVACHOL) 40 mg tablet Take 40 mg by mouth once daily.diltiazem (CARDIZEM) 30 mg tablet Take 30 mg by mouth as needed.raloxifene (EVISTA) 60 mg tablet Take 60 mg by mouth once daily.topiramate(TOPAMAX 50 MG TAB) take two tablet dailyALPRAZOLAM 0.5 MG TAB take one or two tablets at HSpsyllium husk(METAMUCIL 0.52 G CAP) take as directedlevothyroxine sodium(LEVOTHROID 88 MCG TAB) take one tablet dailyrabeprazole sodium(ACIPHEX 20 MG TAB) take one tablet dailyEZETIMIBE 10 MG TAB take one tablet dailylansoprazole(PREVACID 15 MG CAP) take one tablet dailysertraline hcl(ZOLOFT 50 MG TAB) take one and one half tablet HSrizatriptan benzoate(MAXALT 10 MG TAB) take with migrainescalcium/mag/vitam in d2/zn/min(ASHLY-MAG ZINC II ORAL SUSP) take one tabletdailyREVIEW OF SYSTEMS:Remaining ROS reviewed and were negative.OBJECTIVE:PHYSICA L EXAMBP 130/77 Pulse 69 Resp 18 Ht 162.6 cm (5' 4 ) Wt 102.1 kg(225 lb) BMI 38.62 kg/m?GENERAL APPEARANCE: Well nourished, well developed, and no apparentdistress.NEURO PSYCH: Patient oriented to person, place, and time. Mood pleasant.Benign affect.MUSCULOSKELETAL VISUAL INSPECTION CERVICAL: WNL THORACIC: WNL LUMBAR: WNLMOTOR: 5/5 in all muscle groups.SENSORY: Normal sensory examGAIT: Antalgic. Trendelenburg gait compensated.NEURO TESTS:NoneDATA REVIEWOutside records reviewed. MRI report states mild degenerative scoliosiswith lumbar spondylosis, mild to moderate stenosisASSESSMENT/PLANIMP RESSION:(M41.9) Degenerative scoliosis (primary encounter diagnosis)Mary Jane Rios will continue with medical management of his/her conditionand has a condition that requires further workup. I explained that hergait pattern (trendelenberg) is more consistent with underlying hippathology. She does have symptoms consistent with lumbarstenosis/neurogenic claudication.1. Imaging: Lumbar X-Ray2. Follow up: Will try to locate CD with MRI lumbar spine, if not at [facility],patient will need to obtain a copy and mail for reviewThe majority of the visit was spent counseling and/or coordinating carefor the patient. The patient was counseled regarding back pain. Totalface to face time was 30 minutes.SIGNATURE: Andrews Fish MD PATIENT NAME: Mary Jane WallaceATE: March 10, 2018 : 10:44 AM PAGER: Normal [facility] XR LUMBAR 2V AP/LATon 2017 XR LUMBAR 2V AP/LAT * * *Final Report* * *DATE OF EXAM: Mar 10 2018 11:03AM JIX [id number] - XR LUMBAR 2V AP/LAT / REASON: Scoliosis, unspecified * * * * Physician Interpretation * * * * EXAMINATION: XR LUMBAR 2V AP/LATCLINICAL HISTORY: ScoliosisTECHNIQUE: XR LUMBAR 2V AP/LAT with 2 views on 2 imagesMQ: XLS_1COMPARISON: None.RESULT:Post-op assessment: N/ACounting Reference: Lumbosacral junction on lateral view. For the purposes of this report, L5S1 is considered the last lumbar type disc space and L4-5 is considered the level of the iliac crest. Normal.Alignment: Mild curve convex right. Straightening of the normal lordosis, grade 1 spondylolisthesis of L4 upon A8Sxxsertoj bodies: Normal in height. No vertebral fracture.Spine articulations: Severe multilevel disc space narrowing throughout the spine with osteophyte formation of the endplates. Multilevel degenerative changes in the facet joints.Soft tissues: Normal.Other: Right hip is maintained. Total hip arthroplasty on the left side.IMPRESSION: Severe multilevel degenerative changes in the lumbar spineTranscriptionist: NANCI Transcribe Date/Time: Mar 10 2018 11:21ADictated by : ANAHI STEIN MDThis examination was interpreted and the report reviewed and electronically signed by: ANAHI STEIN MD on Mar 10 2018 11:23AM [id number] Normal [facility] Vital Signs Date Time Vital Sign Value Performing Clinician Facility 11-14-2023 22:17-0400 Diastolic blood pressure 85 mm[Hg] Jessica Farrar MD [facility] 11-14-2023 22:17-0400 Heart rate 60 /min Jessica Farrar MD Work Phone: [facility] 11-14-2023 22:17-0400 Respiratory rate 17 /min Jessica Farrar MD Work Phone: [facility] 11-14-2023 22:17-0400 SaO2% (BldA) [Mass fraction] 96 % Jessica Farrar MD Work Phone[facility] 11-14-2023 22:17-0400 Systolic blood pressure 122 mm[Hg] Jessica Farrar MD Work Phone[facility] 11-14-2023 18:48-0400 Body temperature 98.01 [degF] Jessica Farrar MD Work Phone[facility] 11-14-2023 18:42-0400 Body height 162.6 cm Jessica Farrar MD Work Phone: [facility] 11-14-2023 18:42-0400 Body mass index (BMI) [Ratio] 37.08 kg/m2 Jessica Farrar MD Work Phone[facility] 11-14-2023 18:42-0400 Body weight 97.98 kg Jessica Farrar MD Work Phone: [facility] 10-23-2023 12:23-0400 Heart rate 79 /min Lexy Tapia MD Work Phone: [facility] 10-23-2023 12:23-0400 Respiratory rate 16 /min Lexy Tapia MD Work Phone[facility] 10-23-2023 12:23-0400 SaO2% (BldA) [Mass fraction] 97 % Lexy Tapia MD Work Phone: [facility] 10-23-2023 12:13-0400 Diastolic blood pressure 65 mm[Hg] Lexy Tapia MD Work Phone: [facility] 10-23-2023 12:13-0400 Systolic blood pressure 100 mm[Hg] Lexy Tapia MD Work Phone: [facility] 10-23-2023 09:46-0400 Body height 160 cm Lexy Tapia MD Work Phone: [facility] 10-23-2023 09:46-0400 Body mass index (BMI) [Ratio] 38.09 kg/m2 Lexy Tapia MD Work Phone: [facility] 10-23-2023 09:46-0400 Body temperature 98.1 [degF] Lexy Tapia MD Work Phone: [facility] 10-23-2023 09:46-0400 Body weight 97.52 kg Lexy Tapia MD Work Phone: [facility] 09-16-2023 15:15-0400 Diastolic blood pressure 67 mm[Hg] Ricardo Sarmini [facility] 09-16-2023 15:15-0400 Heart rate 53 /min Ricardo Sarmini [facility] 09-16-2023 15:15-0400 Respiratory rate 14 /min Ricardo Sarmini [facility] 09-16-2023 15:15-0400 Systolic blood pressure 148 mm[Hg] Ricardo Sarmini [facility] 09-16-2023 15:00-0400 Diastolic blood pressure 81 mm[Hg] Ricardo Sarmini [facility] 09-16-2023 15:00-0400 Heart rate 54 /min Ricardo Sarmini [facility] 09-16-2023 15:00-0400 Systolic blood pressure 153 mm[Hg] Ricardo Sarmini [facility] 09-16-2023 14:55-0400 Diastolic blood pressure 89 mm[Hg] Ricardo Sarmini [facility] 09-16-2023 14:55-0400 Heart rate 60 /min Ricardo Sarmini [facility] 09-16-2023 14:55-0400 Respiratory rate 20 /min Ricardo Sarmini [facility] 09-16-2023 14:55-0400 SaO2% (BldA) [Mass fraction] 100 % Ricardo Sarmini [facility] 09-16-2023 14:55-0400 Systolic blood pressure 135 mm[Hg] Ricardo Sarmini [facility] 09-16-2023 14:44-0400 Body temperature 96.8 [degF] Ricardo Sarmini [facility] 09-16-2023 14:35-0400 Respiratory rate 12 /min Ricardo Sarmini [facility] 09-16-2023 14:25-0400 Respiratory rate 12 /min Ricardo Sarmini [facility] 09-16-2023 14:15-0400 Respiratory rate 12 /min Davion Olivares [facility] 09-16-2023 13:14-0400 Blood Pressure Location Davion Olivares [facility] 09-16-2023 13:14-0400 Body temperature 96.8 [degF] Davion Olivares [facility] 07-01-2023 15:32-0500 Body height 160 cm Monster Mei MD Work Phone: [facility] 5 Minutes 07-01-2023 15:32-0500 Body mass index (BMI) [Ratio] 36.49 kg/m2 Monster Mei MD Work Phone: [facility] 5 Minutes 07-01-2023 15:32-0500 Body temperature 98.91 [degF] Monster Mei MD Work Phone: [facility] 5 Minutes 07-01-2023 15:32-0500 Body weight 93.44 kg Monster Mei MD Work Phone: [facility] 5 Minutes 07-01-2023 15:32-0500 Diastolic blood pressure 70 mm[Hg] Monster Mei MD Work Phone: [facility] 5 Minutes 07-01-2023 15:32-0500 Heart rate 80 /min Monster Mei MD Work Phone: [facility] 5 Minutes 07-01-2023 15:32-0500 Respiratory rate 20 /min Monster Mei MD Work Phone: [facility] 5 Minutes 07-01-2023 15:32-0500 SaO2% (BldA) [Mass fraction] 97 % Monster Mei MD Work Phone: [facility] 5 Minutes 01-01-2024 15:32-0500 Systolic blood pressure 138 mm[Hg] Monster Mei MD Work Phone: [facility] 05-02-2023 08:55-0400 Body height 162.6 cm Grayson Hutchinson Jr., DO Work Phone: [facility] 05-02-2023 08:55-0400 Body mass index (BMI) [Ratio] 36.46 kg/m2 Grayson Hutchinson Jr., DO Work Phone: [facility] 05-02-2023 08:55-0400 Body temperature 97.7 [degF] Grayson Hutchinson Jr., DO Work Phone: [facility] 05-02-2023 08:55-0400 Body weight 96.34 kg Grayson Hutchinson Jr. DO Work Phone: [facility] 05-02-2023 08:55-0400 Diastolic blood pressure 82 mm[Hg] Grayson Hutchinson Jr. DO Work Phone: [facility] 05-02-2023 08:55-0400 Heart rate 72 /min Grayson Hutchinson Jr. DO Work Phone: [facility] 05-02-2023 08:55-0400 Systolic blood pressure 150 mm[Hg] Grayson Hutchinson Jr. DO Work Phone: [facility] 03-19-2023 08:55-0400 Diastolic blood pressure 73 mm[Hg] MD Roni Dahl Work Phone: [facility] 03-19-2023 08:55-0400 Heart rate 63 /min MD Roni Dahl Work Phone: [facility] 03-19-2023 08:55-0400 Respiratory rate 16 /min MD Roni Dahl Work Phone: [facility] 03-19-2023 08:55-0400 SaO2% (BldA) [Mass fraction] 95 % MD Roni Dahl Work Phone: [facility] 03-19-2023 08:55-0400 Systolic blood pressure 141 mm[Hg] MD Roni Dahl Work Phone: [facility] 03-19-2023 08:15-0400 Inhaled oxygen flow rate 3 L/min MD Roni Dahl Work Phone: [facility] 03-19-2023 07:19-0400 Body height 160.02 cm MD Roni Dahl Work Phone: [facility] 03-19-2023 07:19-0400 Body weight 96.61 kg MD Roni Dahl Work Phone: [facility] 03-07-2023 09:20-0400 Body height Mukul Wilson Other [employer] Other 03-07-2023 09:20-0400 Body mass index (BMI) [Ratio] 35.99 kg/m2 Mukul Wilson Other [employer] Other 03-07-2023 09:20-0400 Body weight 96.62 kg Mukul Wilson Other [employer] Other 03-07-2023 09:20-0400 Diastolic blood pressure 80 mm[Hg] Mukul Wilson Other [employer] Other 03-07-2023 09:20-0400 Systolic blood pressure 152 mm[Hg] Mukul Wilson Other [employer] Other 03-01-2023 12:05-0400 Body height 162.56 cm MD Roni Dahl Work Phone: [facility] 03-01-2023 12:05-0400 Body temperature 98.6 [degF] MD Roni Dahl Work Phone: [facility] 03-01-2023 12:05-0400 Body weight 96.61 kg MD Roni Dahl Work Phone: [facility] 03-01-2023 12:05-0400 Diastolic blood pressure 74 mm[Hg] MD Roni Dahl Work Phone: [facility] 03-01-2023 12:05-0400 Heart rate 59 /min MD Roni Dahl Work Phone: [facility] 03-01-2023 12:05-0400 Respiratory rate 20 /min MD Roni Dahl Work Phone: [facility] 03-01-2023 12:05-0400 SaO2% (BldA) [Mass fraction] 96 % MD Roni Dahl Work Phone: [facility] 03-01-2023 12:05-0400 Systolic blood pressure 143 mm[Hg] MD Roni Dahl Work Phone: [facility] 02-28-2023 12:51-0400 Blood Pressure Location Ricardo Sarmini [facility] 02-28-2023 12:51-0400 Diastolic blood pressure 92 mm[Hg] Ricardo Sarmini [facility] 02-28-2023 12:51-0400 Heart rate 64 /min Ricardo Sarmini [facility] 02-28-2023 12:51-0400 Respiratory rate 16 /min Ricardo Sarmini [facility] 02-28-2023 12:51-0400 SaO2% (BldA) [Mass fraction] 98 % Ricardo Sarmini [facility] 02-28-2023 12:51-0400 Systolic blood pressure 135 mm[Hg] Ricardo Sarmini [facility] 02-08-2023 14:05-0400 Body temperature 98.1 [degF] Roni Dahl MD [facility] Phone: [facility] 02-08-2023 14:05-0400 Diastolic blood pressure 63 mm[Hg] Roni Dahl MD [facility] Phone: [facility] 02-08-2023 14:05-0400 Heart rate 59 /min Roni Dahl MD [facility] Phone: [facility] 02-08-2023 14:05-0400 Respiratory rate 13 /min Roni Dahl MD Work Phone: [facility] 02-08-2023 14:05-0400 SaO2% (BldA) [Mass fraction] 97 % Roni Dahl MD Work Phone: [facility] 5 Minutes 02-08-2023 14:05-0400 Systolic blood pressure 143 mm[Hg] Roni Dahl MD Work Phone: [facility] 5 Minutes 01-30-2023 15:30-0400 Body temperature 98.7 [degF] Tara Patel Other [employer] Other 01-30-2023 15:30-0400 Body weight 99.79 kg Tara Patel Other [employer] Other 01-30-2023 15:30-0400 Diastolic blood pressure 70 mm[Hg] Tara Jorge Other [employer] Other 01-30-2023 15:30-0400 Respiratory rate 20 /min Tara Patel Other [employer] Other 01-30-2023 15:30-0400 SaO2% (BldA) [Mass fraction] 98 % Tara Patel Other [employer] Other 01-30-2023 15:30-0400 Systolic blood pressure 122 mm[Hg] Tara Patel Other [employer] Other 11-25-2022 12:00-0400 Diastolic blood pressure 75 mm[Hg] Salomon Crorea MD Work Phone: [employer] 11-25-2022 12:00-0400 SaO2% (BldA) [Mass fraction] 99 % Salomon Correa MD Work Phone: [employer] 11-25-2022 12:00-0400 Systolic blood pressure 140 mm[Hg] Salomon Correa MD Work Phone: [employer] 11-25-2022 10:30-0400 Heart rate 59 /min Salomon Correa MD Work Phone: [employer] 11-25-2022 10:30-0400 Respiratory rate 18 /min Salomon Correa MD Work Phone: [employer] 11-25-2022 10:05-0400 Body temperature 97.9 [degF] Salomon Correa MD Work Phone: [employer] 11-25-2022 10:04-0400 Body height 162.6 cm Salomon Correa MD Work Phone: [employer] 11-25-2022 10:04-0400 Body mass index (BMI) [Ratio] 38.16 kg/m2 Salomon Correa MD Work Phone: [employer] 11-25-2022 10:04-0400 Body weight 100.83 kg Salomon Correa MD Work Phone: [employer] 08-28-2022 12:58-0500 Blood Pressure Location [facility] 08-28-2022 12:58-0500 Body temperature 97.34 [degF] Donna Jangmetz [facility] 08-28-2022 12:58-0500 Diastolic blood pressure 72 mm[Hg] Donna Johanna [facility] 08-28-2022 12:58-0500 Heart rate 69 /min Donnabaylee JangJohanna [facility] 08-28-2022 12:58-0500 Systolic blood pressure 114 mm[Hg] Donna Jangmetz [facility] 07-26-2022 08:55-0500 Diastolic blood pressure 69 mm[Hg] Ferrari SALAM [facility] 07-26-2022 08:55-0500 Heart rate 54 /min Ferrari SALAM [facility] 07-26-2022 08:55-0500 Mean blood pressure 84 mm[Hg] Ferrari SALAM [facility] 07-26-2022 08:55-0500 Respiratory rate 13 /min Ferrari SALAM [facility] 07-26-2022 08:55-0500 SaO2% (BldA) [Mass fraction] 97 % Ferrari SALAM [facility] 07-26-2022 08:55-0500 Systolic blood pressure 114 mm[Hg] Ferrari SALAM [facility] 07-26-2022 08:35-0500 Diastolic blood pressure 71 mm[Hg] Ferrari SALAM [facility] 07-26-2022 08:35-0500 Heart rate 55 /min Ferrari SALAM [facility] 07-26-2022 08:35-0500 Mean blood pressure 84 mm[Hg] Ferrari SALAM [facility] 07-26-2022 08:35-0500 Respiratory rate 17 /min Ferrari SALAM [facility] 07-26-2022 08:35-0500 SaO2% (BldA) [Mass fraction] 100 % Ferrari SALAM [facility] 07-26-2022 08:35-0500 Systolic blood pressure 111 mm[Hg] Ferrari SALAM [facility] 07-26-2022 08:30-0500 Diastolic blood pressure 72 mm[Hg] Ferrari SALAM [facility] 07-26-2022 08:30-0500 Heart rate 71 /min Ferrari SALAM [facility] 07-26-2022 08:30-0500 Mean blood pressure 92 mm[Hg] Ferrari SALAM [facility] 07-26-2022 08:30-0500 Respiratory rate 21 /min Ferrari SALAM [facility] 07-26-2022 08:30-0500 SaO2% (BldA) [Mass fraction] 99 % Ferrari SALAM [facility] 07-26-2022 08:30-0500 Systolic blood pressure 131 mm[Hg] Ferrari SALAM [facility] 07-26-2022 08:20-0500 Body temperature 97.7 [degF] Ferrari SALAM [facility] 07-26-2022 07:14-0500 Blood Pressure Location Ferrari SALAM [facility] 07-26-2022 07:14-0500 Body temperature 97.16 [degF] Vonda HERNANDEZ [facility] 07-17-2022 09:53-0500 Diastolic blood pressure 60 mm[Hg] MD Roni Dahl Work Phone: [facility] 07-17-2022 09:53-0500 Heart rate 60 /min MD Roni Dahl Work Phone: [facility] 07-17-2022 09:53-0500 Respiratory rate 16 /min MD Roni Dahl Work Phone: [facility] 07-17-2022 09:53-0500 SaO2% (BldA) [Mass fraction] 97 % MD Roni Dahl Work Phone: [facility] 07-17-2022 09:53-0500 Systolic blood pressure 120 mm[Hg] MD Roni Dahl Work Phone: [facility] 07-17-2022 09:06-0500 Inhaled oxygen flow rate 3 L/min MD Roni Dahl Work Phone: [facility] 07-17-2022 08:22-0500 Body height 162.56 cm MD Roni Dahl Work Phone: [facility] 07-17-2022 08:22-0500 Body weight 99.79 kg MD Roni Dahl Work Phone: [facility] 07-12-2022 09:28-0500 Body temperature 97.7 [degF] Alma Mao DO Work Phone: [employer] 07-12-2022 09:21-0500 Body height 162.6 cm Alma Mao DO Work Phone: [employer] 07-12-2022 09:21-0500 Body mass index (BMI) [Ratio] 37.93 kg/m2 Alma Mao DO Work Phone: [employer] 07-12-2022 09:21-0500 Body weight 100.25 kg Alma Mao DO Work Phone: [employer] 07-12-2022 09:21-0500 Diastolic blood pressure 71 mm[Hg] Alma Daylin DO Work Phone: [employer] 07-12-2022 09:21-0500 Heart rate 72 /min Alma Daylin DO Work Phone: [employer] 07-12-2022 09:21-0500 Respiratory rate 18 /min Alma Maier DO Work Phone: [employer] 07-12-2022 09:21-0500 SaO2% (BldA) [Mass fraction] 98 % Alma Mao DO Work Phone: [employer] 07-12-2022 09:21-0500 Systolic blood pressure 128 mm[Hg] Alma Mao DO Work Phone: [employer] 07-10-2022 14:16-0500 Blood Pressure Location Donna Johanna [facility] 07-10-2022 14:16-0500 Body temperature 96.8 [degF] Donna Spencer [facility] 07-10-2022 14:16-0500 Diastolic blood pressure 80 mm[Hg] Donna Jangmetz [facility] 07-10-2022 14:16-0500 Heart rate 64 /min Donna Spencer [facility] 07-10-2022 14:16-0500 Systolic blood pressure 119 mm[Hg] Donna Jnagmetz [facility] 07-03-2022 11:10-0500 Diastolic blood pressure 73 mm[Hg] MD Roni Dahl Work Phone: [facility] 07-03-2022 11:10-0500 Heart rate 56 /min MD Roni Dahl Work Phone: [facility] 07-03-2022 11:10-0500 Respiratory rate 20 /min MD Roni Dahl Work Phone: [facility] 07-03-2022 11:10-0500 SaO2% (BldA) [Mass fraction] 97 % MD Roni Dahl Work Phone: [facility] 07-03-2022 11:10-0500 Systolic blood pressure 136 mm[Hg] MD Roni Dahl Work Phone: [facility] 07-03-2022 10:28-0500 Inhaled oxygen flow rate 3 L/min MD Roni Dahl Work Phone: [facility] 07-03-2022 09:32-0500 Body height 162.56 cm MD Roni Dahl Work Phone: [facility] 07-03-2022 09:32-0500 Body weight 99.79 kg MD Roni Dahl Work Phone: [facility] 05-29-2022 10:13-0500 Diastolic blood pressure 72 mm[Hg] MD Roni Dahl Work Phone: [facility] 05-29-2022 10:13-0500 Heart rate 62 /min MD Roni Dahl Work Phone: [facility] 05-29-2022 10:13-0500 Respiratory rate 20 /min MD Roni Dahl Work Phone: [facility] 05-29-2022 10:13-0500 SaO2% (BldA) [Mass fraction] 97 % MD Roni Dahl Work Phone: [facility] 05-29-2022 10:13-0500 Systolic blood pressure 139 mm[Hg] MD Roni Dahl Work Phone: [facility] 05-29-2022 09:23-0500 Inhaled oxygen flow rate 3 L/min MD Roni Dahl Work Phone: [facility] 05-29-2022 08:38-0500 Body height 162.56 cm MD Roni Dahl Work Phone: [facility] 05-29-2022 08:38-0500 Body weight 100.24 kg MD Roni Dahl Work Phone: [facility] 04-09-2022 11:15-0400 Body weight 101.15 kg Yanelis Garcia Other [facility] [employer] Other 03-27-2022 09:14-0400 Diastolic blood pressure 62 mm[Hg] MD Roni Dahl Work Phone: [facility] 03-27-2022 09:14-0400 Heart rate 57 /min MD Roni Dahl Work Phone: [facility] 03-27-2022 09:14-0400 Respiratory rate 16 /min MD Roni Dahl Work Phone: [facility] 03-27-2022 09:14-0400 SaO2% (BldA) [Mass fraction] 96 % MD Roni Dahl Work Phone: [facility] 03-27-2022 09:14-0400 Systolic blood pressure 121 mm[Hg] MD Roni Dahl Work Phone: [facility] 03-27-2022 08:36-0400 Inhaled oxygen flow rate 3 L/min MD Roni Dahl Work Phone: [facility] 03-27-2022 07:55-0400 Body height 165.1 cm MD Roni Dahl Work Phone: [facility] 03-27-2022 07:55-0400 Body weight 100.24 kg MD Roni Dahl Work Phone: [facility] 10-14-2021 11:07-0400 Body mass index (BMI) [Ratio] 38.77 kg/m2 Lexy Tapia MD Work Phone: [employer] 10-14-2021 11:07-0400 Body temperature 98.2 [degF] Lexy Tapia MD Work Phone: [employer] 10-14-2021 11:07-0400 Body weight 105.69 kg Lexy Tapia MD Work Phone: [employer] 10-14-2021 11:07-0400 Diastolic blood pressure 73 mm[Hg] Lexy Tapia MD Work Phone: [employer] 10-14-2021 11:07-0400 Heart rate 67 /min Lexy Tapia MD Work Phone: [employer] 10-14-2021 11:07-0400 Respiratory rate 16 /min Lexy Tapia MD Work Phone: [employer] 10-14-2021 11:07-0400 SaO2% (BldA) [Mass fraction] 98 % Lexy Tapia MD Work Phone: [employer] 10-14-2021 11:07-0400 Systolic blood pressure 147 mm[Hg] Lexy Tapia MD Work Phone: [employer] 11-27-2020 14:00-0400 Respiratory rate 18 /min Darryl Sandoval MD Work Phone: [employer] Work Phone: 11-27-2020 09:32-0400 SaO2% (BldA) [Mass fraction] 96 % Darryl Sandoval MD Work Phone: [employer] Work Phone: 11-27-2020 09:31-0400 Body temperature 98.1 [degF] Darryl Sandoval MD Work Phone: [employer] Work Phone: 11-27-2020 09:31-0400 Diastolic blood pressure 78 mm[Hg] Darryl Sandoval MD Work Phone: [employer] Work Phone: 11-27-2020 09:31-0400 Heart rate 78 /min Darryl Sandoval MD Work Phone: [employer] Work Phone: 11-27-2020 09:31-0400 Systolic blood pressure 139 mm[Hg] Darryl Sandoval MD Work Phone: [employer] Work Phone: 11-18-2020 09:19-0400 Diastolic blood pressure 57 mm[Hg] Naida Grissom MD Work Phone: [employer] Work Phone: 11-18-2020 09:19-0400 SaO2% (BldA) [Mass fraction] 96 % Naida Grissom MD Work Phone: [employer] Work Phone: 11-18-2020 09:19-0400 Systolic blood pressure 118 mm[Hg] Naida Grissom MD Work Phone: [employer] Work Phone: 11-18-2020 06:45-0400 Body height 165.1 cm Naida Grissom MD Work Phone: [employer] Work Phone: 11-18-2020 06:45-0400 Body mass index (BMI) [Ratio] 37.11 kg/m2 Naida Grissom MD Work Phone: [employer] Work Phone: 11-18-2020 06:45-0400 Body temperature 99.19 [degF] Naida Grissom MD Work Phone: [employer] Work Phone: 11-18-2020 06:45-0400 Body weight 101.15 kg Naida Grissom MD Work Phone: [facility] [employer] Work Phone: 11-18-2020 06:45-0400 Heart rate 87 /min Naida Grissom MD Work Phone: [employer] Work Phone: 11-18-2020 06:45-0400 Respiratory rate 18 /min Naida Grissom MD Work Phone: [facility] [employer] Work Phone: 03-31-2020 13:48-0400 BMI (Body Mass Index) 38.79 kg/m2 [facility], MD 03-31-2020 13:48-0400 Body Temperature 98.49 [degF] [facility], MD 03-31-2020 13:48-0400 Body weight 102.51 kg [facility], MD 03-31-2020 13:48-0400 BP Diastolic 99 mm[Hg] [facility], MD 03-31-2020 13:48-0400 BP Systolic 130 mm[Hg] [facility], MD 03-31-2020 13:48-0400 Height 162.6 cm [facility], MD 03-31-2020 13:48-0400 Pulse (Heart Rate) 61 /min [facility], MD 03-31-2020 13:48-0400 Pulse Oximetry 100 % [facility], MD 03-31-2020 13:48-0400 Respiratory Rate 18 /min [facility], MD 05-30-2019 06:47-0500 Pulse Oximetry 100 % [facility], MD 05-30-2019 06:34-0500 BP Diastolic 44 mm[Hg] [facility], MD 05-30-2019 06:34-0500 BP Systolic 128 mm[Hg] [facility], MD 05-30-2019 06:00-0500 BMI (Body Mass Index) 39.86 kg/m2 [facility], MD 05-30-2019 06:00-0500 Body Temperature 98.8 [degF] Lexy Tapia [facility], MD 05-30-2019 06:00-0500 Body weight 102.06 kg [facility], MD 05-30-2019 06:00-0500 Height 160 cm [facility] Tapia [facility], MD 05-30-2019 06:00-0500 Pulse (Heart Rate) 83 /min [facility] Tapia [facility], MD 05-30-2019 06:00-0500 Respiratory Rate 20 /min [place] [facility], MD Encounters Encounter Date Encounter Type Care Provider Facility Start: 12-19-2023 End: 12-19-2023 Patient encounter procedure MD Roni Dahl Work Phone: [facility] [address] Work Phone: Start: 12-19-2023 End: 12-19-2023 ambulatory MD Roni Dahl Work Phone: [facility] Work Phone: Start: 12-12-2023 End: 12-12-2023 [facility] Start: 11-14-2023 End: 11-14-2023 Emergency department patient visit Jessica Farrar MD Work Phone: [facility] ED Comment on above: Paroxysmal atrial fi brillation (HCC) (Primary Dx) Start: 10-23-2023 End: 10-25-2023 [facility] Start: 10-23-2023 End: 10-23-2023 Emergency department patient visit Lexy Tapia MD Work Phone: [facility] ED Comment on above: New onset atrial fib rillation (HCC) (Primary Dx); Atrial fibrillation with RVR (HCC); History of chronic kidney disease; Symptoms of dehydration; Fluid level behind tympanic membrane of both ears; Acute pansinusitis, recurrence not specified; Nausea vomiting and diarrhea Start: 10-22-2023 End: 10-24-2023 [facility] Start: 10-01-2023 End: 10-01-2023 ambulatory [facility] Start: 09-30-2023 End: 10-01-2023 ambulatory Roni Dahl MD Facility:[facility] [facility] Start: 09-19-2023 End: 09-19-2023 Patient encounter procedure MD Roni Dahl Work Phone: [facility] [address] Work Phone: Start: 09-19-2023 End: 09-19-2023 ambulatory MD Roni Dahl Work Phone: [facility] Work Phone: Start: 09-16-2023 End: 09-16-2023 ambulatory Ricardo Tessa Mendozamini Facility:[facility] Start: 09-16-2023 End: 09-16-2023 Patient encounter procedure Davion Mendozaminmary alice [facility] Start: 09-09-2023 End: 09-10-2023 ambulatory Roni Dahl MD Facility:[facility] Start: 08-26-2023 End: 08-27-2023 ambulatory Roni Dahl MD Facility:[facility] [place] Start: 08-20-2023 End: 08-22-2023 ambulatory [facility] Start: 07-01-2023 End: 07-01-2023 Emergency department patient visit Monster Mei MD Work Phone: [facility] ED Comment on above: COVID-19 virus infec tion (Primary Dx) Start: 05-28-2023 End: 05-28-2023 [facility] Start: 05-27-2023 End: 05-27-2023 Patient encounter procedure MD Roni Dahl Work Phone: [facility] [address] Work Phone: Start: 05-27-2023 End: 05-27-2023 ambulatory MD Roni Dahl Work Phone: [facility] Work Phone: Start: 05-22-2023 End: 05-22-2023 ambulatory [facility] Start: 05-20-2023 End: 05-20-2023 ambulatory RONI Angel [facility] Start: 05-16-2023 End: 05-16-2023 ambulatory RONI DAHL Mercjuan c [facility] Start: 05-13-2023 End: 05-13-2023 ambulatory [facility]ONI [facility] Start: 05-09-2023 End: 05-11-2023 ambulatory RONI L ALEMJOLENE Antoinette [facility] Start: 05-09-2023 End: 05-09-2023 ambulatory RONI Ortiz NABILA [facility] Start: 05-07-2023 End: 05-07-2023 ambulatory [facility] Start: 05-02-2023 End: 05-06-2023 ambulatory MARY SUE [facility] Ambulatory Start: 05-02-2023 End: 05-02-2023 Clinical Support Mary Chacon Work Phone: [facility] Comment on above: Sensorineural hearin g loss, bilateral (Primary Dx); Hearing loss, unspecified hearing loss type, unspecified laterality Start: 05-02-2023 End: 05-02-2023 Office outpatient new 45 minutes Grayson Hutchinson DO Work Phone: [facility] Phys[facility] Comment on above: Bruxism (teeth grind ing) (Primary Dx); Acute suppurative otitis media of left ear without spontaneous rupture of tympanic membrane, recurrence not specified; ROSETTE on CPAP; Hearing loss, unspecified hearing loss type, unspecified laterality Start: 05-01-2023 End: 05-01-2023 [facility] Start: 04-29-2023 End: 04-29-2023 ambulatory [facility] Start: 04-13-2023 End: 04-13-2023 Emergency department patient visit SALOMON CORREA [facility] Start: 04-11-2023 End: 04-11-2023 ambulatory XU FRYJuan C [place] Start: 03-28-2023 End: 03-28-2023 ambulatory LANIE PEREZEZ [place] Start: 03-19-2023 End: 03-19-2023 Admission to same day surgery center MD Roni Dahl Work Phone: [facility] Work Phone: Start: 03-19-2023 End: 03-19-2023 ambulatory MD Roni Dahl Work Phone: [facility] Work Phone: Start: 03-14-2023 End: 03-14-2023 ambulatory Yanelis Garcia Other [employer] Other Start: 03-14-2023 Office outpatient vi sit 25 minutes Yanelis Garcia [facility] [place] Start: 03-14-2023 Telephone encounter Yanelis Garcia [facility] Start: 03-13-2023 End: 03-16-2023 [facility] Start: 03-13-2023 End: 03-15-2023 Subsequent hospital visit by physician Yanelis Guzman MD Work Phone: [facility] Comment on above: Renal cyst Start: 03-08-2023 End: 03-08-2023 ambulatory Mukul Wilson Other [employer] Other Start: 03-08-2023 Telephone encounter Mukul Wilson [facility] [employer] [facility] Start: 03-07-2023 Office outpatient ne w 30 minutes Mukul Wilson [facility] Neurosurgery Start: 03-07-2023 End: 03-07-2023 Patient encounter procedure MD Roni Dahl Work Phone: [facility] [place] Work Phone: Start: 03-07-2023 End: 03-07-2023 ambulatory MD Roni Dahl Work Phone: [facility] Work Phone: Start: 03-01-2023 End: 03-01-2023 Emergency department patient visit MD Roni Dahl Work Phone: [facility] Work Phone: Start: 02-28-2023 End: 02-28-2023 ambulatory Ricardo Talal Sarmini Facility:[facility] Start: 02-28-2023 End: 02-28-2023 Patient encounter procedure Ricardo [facility] Start: 02-27-2023 End: 03-01-2023 Subsequent hospital visit by physician Roni Dahl MD Work Phone: [facility] Radiology Start: 02-27-2023 End: 03-01-2023 ambulatory RONI DAHL [facility] Start: 02-25-2023 End: 02-25-2023 ambulatory Yanelis Garcia Other [facility] [employer] Other Start: 02-25-2023 Telephone encounter Yanelis Garcia [facility] Start: 02-21-2023 End: 02-21-2023 Patient encounter procedure MD Roni Dahl Work Phone: [facility] [place] Work Phone: Start: 02-21-2023 End: 02-21-2023 ambulatory MD Roni Dahl Work Phone: [facility] Work Phone: Start: 02-14-2023 End: 02-14-2023 ambulatory Yanelis Garcia Other [employer] Other Start: 02-14-2023 Telephone encounter Yanelis Branch [facility] [place] Start: 02-08-2023 Emergency department patient visit RONI DAHL [facility] Start: 02-08-2023 End: 02-08-2023 Emergency department patient visit Roni Dahl MD Work Phone: [facility] ED Comment on above: 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, unspecified back pain laterality (Primary Dx) Start: 02-04-2023 End: 02-04-2023 ambulatory Yanelis Garcia Other [employer] Other Start: 02-04-2023 Telephone encounter Yanelis Branch [facility] Start: 01-30-2023 End: 01-30-2023 ambulatory Tara Patel Other [employer] Other Start: 01-30-2023 Office outpatient vi sit 25 minutes Tara Patel [facility] Start: 12-11-2022 End: 12-12-2022 ambulatory YANELIS GUZMAN [facility] Start: 11-25-2022 End: 11-25-2022 Emergency department patient visit Salomon Correa MD Work Phone: [facility] ED Comment on above: Non-recurrent acute suppurative otitis media of left ear without spontaneous rupture of tympanic membrane (Primary Dx); Acute nonintractable headache, unspecified headache type Start: 11-19-2022 End: 11-20-2022 ambulatory R[facility]ahl MD [facility] Start: 08-29-2022 End: 08-31-2022 Subsequent hospital visit by physician [facility] Additional Xray At [facility] Rad[facility] Comment on above: Essential hypertensi on; Palpitations; Hypothyroidism, unspecified type; Hyperlipidemia, unspecified hyperlipidemia type; Vitamin D deficiency disease Start: 08-28-2022 End: 08-28-2022 Patient encounter procedure Donna Aurelia Spencer [facility] Start: 08-21-2022 End: 08-21-2022 ambulatory MD Roni Dahl Work Phone: [facility] Work Phone: Start: 08-21-2022 End: 08-21-2022 Patient encounter procedure MD Roni Dahl Work Phone: [facility] [address] Work Phone: Start: 07-31-2022 Office outpatient vi sit 15 minutes Yanelis PORTER [facility] [place] Start: 07-31-2022 End: 08-01-2022 ambulatory [facility] [employer] Other Start: 07-31-2022 End: 08-01-2022 Encounter for other specified special examinations [facility] Start: 07-31-2022 End: 07-31-2022 Subsequent hospital visit by physician [facility] Comment on above: Arrived Start: 07-26-2022 End: 07-26-2022 Patient encounter procedure Vonda HERNANDEZ [facility] Start: 07-17-2022 (Procedure) Bj Garcia [facility] Start: 07-17-2022 End: 07-17-2022 Admission to same day surgery center MD Roni Dalh Work Phone: [facility] Work Phone: Start: 07-17-2022 End: 07-17-2022 ambulatory MD Roni Dahl Work Phone: [facility] Work Phone: Start: 07-12-2022 End: 07-12-2022 Emergency department patient visit Alma Mao Work Phone: [facility] ED Comment on above: Acute pharyngitis, u nspecified etiology (Primary Dx) Start: 07-10-2022 End: 07-10-2022 Patient encounter procedure Donna Spencer [facility] Start: 07-03-2022 (Procedure) jB Garcia [facility] Start: 07-03-2022 End: 07-03-2022 Admission to same day surgery center MD Roni Dahl Work Phone: [facility] Work Phone: Start: 07-03-2022 End: 07-03-2022 ambulatory MD Roni Dahl Work Phone: [facility] Work Phone: Start: 06-26-2022 End: 06-26-2022 Patient encounter procedure Donna A Johanna [facility] Start: 06-14-2022 End: 06-15-2022 ambulatory EMA GARAY [facility] Start: 06-14-2022 End: 06-14-2022 Subsequent hospital visit by physician Maria R Malhotra PT [facility] Physical Therapy Comment on above: Arrived Start: 06-13-2022 End: 06-13-2022 ambulatory Yanelis Garcia Other [employer] Other Start: 06-13-2022 Office outpatient vi sit 25 minutes Yanelis Garcia [facility] [place] Start: 05-29-2022 (Procedure) Bj Garcia [facility] Start: 05-29-2022 End: 05-29-2022 Admission to same day surgery center MD Roni Dahl Work Phone: [facility] Start: 05-29-2022 End: 05-29-2022 ambulatory MD Roni Dahl Work Phone: [facility] Work Phone: Start: 05-22-2022 End: 05-23-2022 ambulatory [facility] Start: 05-16-2022 End: 05-17-2022 ambulatory [facility]ONI [facility] Start: 05-07-2022 End: 05-07-2022 ambulatory MD Roni Dahl Work Phone: [facility] Work Phone: Start: 05-07-2022 End: 05-07-2022 Patient encounter procedure MD Roni Dahl Work Phone: [facility] [address] Start: 05-02-2022 End: 05-02-2022 ambulatory Yanelis Garcia Other [employer] Other Start: 05-02-2022 Office outpatient vi sit 25 minutes Yanelis Garcia [facility] [place] Start: 04-09-2022 End: 04-09-2022 ambulatory Yanelis Garcia Other [employer] Other Start: 04-09-2022 Office outpatient vi sit 25 minutes Yanelis Feltjuli [facility] [place] Start: 03-27-2022 End: 03-27-2022 Admission to same day surgery center MD Roni Dahl Work Phone: [facility] Start: 03-14-2022 End: 03-14-2022 Patient encounter procedure MD Roni Dahl Work Phone: [facility] Start: 02-22-2022 End: 02-22-2022 Patient encounter procedure MD Roni Dahl Work Phone: [facility] [address] Start: 01-31-2022 End: 02-02-2022 Subsequent hospital visit by physician Rei Mammography Room [facility] Mammography Comment on above: Visit for screening mammogram Start: 12-07-2021 End: 12-07-2021 Patient encounter procedure MD Roni Dahl Work Phone: [facility] Start: 11-30-2021 End: 12-02-2021 Subsequent hospital visit by physician Rei Dig Rad 1 [facility] Radiology Comment on above: H/O repair of right rotator cuff Start: 11-30-2021 End: 12-02-2021 Subsequent hospital visit by physician Roni Dahl MD Work Phone: [facility] Radiology Start: 10-30-2021 End: 10-30-2021 Patient encounter procedure Donna Spencer [facility] Start: 10-26-2021 End: 10-26-2021 Patient encounter procedure Roni Dahl MD Work Phone: [facility] Start: 10-26-2021 End: 10-26-2021 Subsequent hospital visit by physician Roni Dahl MD Work Phone: [facility] Laboratory Comment on above: Women's annual routi ne gynecological examination; Vaginal burning Start: 10-14-2021 End: 10-14-2021 Emergency department patient visit Lexy Tapia MD Work Phone: [facility] ED Comment on above: Acute cystitis with hematuria (Primary Dx); Vaginal yeast infection Start: 10-11-2021 End: 10-11-2021 Subsequent hospital visit by physician Zo Chen PT Work Phone: [facility] Comment on above: Arrived Start: 10-04-2021 End: 10-04-2021 Subsequent hospital visit by physician Zo Chen PT Work Phone: [facility] Comment on above: Arrived Start: 09-28-2021 End: 09-28-2021 Subsequent hospital visit by physician Velasquez Martel PTA [facility] Comment on above: Arrived Start: 09-25-2021 End: 09-25-2021 Subsequent hospital visit by physician Nancy Nunez [facility] Start: 09-21-2021 End: 09-21-2021 Subsequent hospital visit by physician Velasquez Martel PTA [facility] Comment on above: Arrived Start: 09-19-2021 End: 09-19-2021 Subsequent hospital visit by physician Nancy Nunez [facility] Comment on above: Arrived Start: 09-15-2021 End: 09-15-2021 Subsequent hospital visit by physician Velasquez Martel PTA [facility] Comment on above: Arrived Start: 09-13-2021 End: 09-13-2021 Subsequent hospital visit by physician Velasquez Martel PTA [facility] Comment on above: Arrived Start: 09-07-2021 End: 09-07-2021 Subsequent hospital visit by physician Zo Chen PT Work Phone: [facility] Comment on above: Arrived Start: 09-05-2021 End: 09-05-2021 Subsequent hospital visit by physician Velasquez Martel PTA [facility] Comment on above: Arrived Start: 08-31-2021 End: 08-31-2021 Subsequent hospital visit by physician Velasquez Martel PTA [facility] Comment on above: Arrived Start: 08-29-2021 End: 08-29-2021 Subsequent hospital visit by physician Roni Dahl MD Work Phone: [facility] Comment on above: Essential hypertensi on; Palpitations; Hypothyroidism, unspecified type; Hyperlipidemia, unspecified hyperlipidemia type; Vitamin D deficiency disease Start: 08-10-2021 End: 08-12-2021 Subsequent hospital visit by physician Rei Additional Xray At [facility] Radiology Comment on above: History of arthrosco py of right shoulder Start: 06-14-2021 End: 06-14-2021 Subsequent hospital visit by physician Velasquez Martel PTA [facility] Comment on above: Arrived Start: 06-12-2021 End: 06-12-2021 Subsequent hospital visit by physician Rashmi Garcia [facility] Start: 06-12-2021 End: 06-12-2021 Subsequent hospital visit by physician Rei Covid19 Pat Screening Schedule [facility] Comment on above: Acute non-recurrent pansinusitis Start: 05-10-2021 End: 05-10-2021 Subsequent hospital visit by physician Velasquez Martel PTA [facility] Comment on above: Arrived Start: 05-05-2021 End: 05-05-2021 Subsequent hospital visit by physician Zo Chen PT Work Phone: [facility] Comment on above: Arrived Start: 05-02-2021 End: 05-02-2021 Subsequent hospital visit by physician Rashmi Garcia [facility] Comment on above: Arrived Start: 04-27-2021 End: 04-29-2021 Subsequent hospital visit by physician Rei Dig Rad 1 [facility] Radiology Comment on above: Right shoulder pain, unspecified chronicity Start: 04-27-2021 End: 04-29-2021 Subsequent hospital visit by physician Roni Dahl MD Work Phone: [facility] Radiology Start: 01-20-2021 End: 01-22-2021 Subsequent hospital visit by physician Rei Mammography Room [facility] Mammography Comment on above: Screening mammogram, encounter for Start: 01-09-2021 End: 01-09-2021 Subsequent hospital visit by physician Roni Dahl MD Work Phone: [facility] Comment on above: Low hemoglobin Start: 12-09-2020 End: 12-09-2020 Subsequent hospital visit by physician Roni Dahl MD Work Phone: [facility] Comment on above: Low hemoglobin Start: 11-27-2020 End: 11-27-2020 Emergency department patient visit Darryl Sandoval MD Work Phone: [facility] ED Comment on above: Diarrhea, unspecifie d type (Primary Dx); General weakness; Urinary incontinence, unspecified type Start: 11-22-2020 End: 11-22-2020 Subsequent hospital visit by physician Roni Dahl MD Work Phone: [facility] Comment on above: Diarrhea of presumed infectious origin; Intractable vomiting with nausea, unspecified vomiting type Start: 11-18-2020 End: 11-18-2020 Emergency department patient visit Naida Grissom MD Work Phone: [facility] ED Comment on above: Nausea vomiting and diarrhea (Primary Dx) Start: 08-11-2020 End: 08-11-2020 Subsequent hospital visit by physician Roni Dahl [facility] Laboratory Comment on above: Essential hypertensi on; Palpitations; Hypothyroidism, unspecified type; Hyperlipidemia, unspecified hyperlipidemia type; Vitamin D deficiency disease Start: 08-09-2020 End: 08-09-2020 Subsequent hospital visit by physician Roni Dahl [facility] RESPIRATORY THERAPY Comment on above: Essential hypertensi on; Palpitations; Hypothyroidism, unspecified type Start: 06-29-2020 End: 06-29-2020 Subsequent hospital visit by physician Breezy Covid Screening Schedule [facility] Covid Screening Comment on above: Acute recurrent pans inusitis; Fever, unspecified fever cause Start: 03-31-2020 End: 03-31-2020 Subsequent hospital visit by physician Roni Dahl [facility] Laboratory Comment on above: Viral illness; Exposure to COVID-19 virus Start: 03-31-2020 End: 03-31-2020 Emergency department patient visit Lexy Tapia Work Phone: [facility] ED Comment on above: General weakness (Pr imary Dx); YANNA (middle ear effusion), bilateral Start: 11-09-2019 End: 11-11-2019 Subsequent hospital visit by physician [facility] Mammography Room [facility] Mammography Comment on above: Visit for screening mammogram Start: 07-07-2019 End: 07-09-2019 Subsequent hospital visit by physician Roni Dahl MD Work Phone: [facility] RESPIRATORY THERAPY Comment on above: Essential hypertensi on; Pure hypercholesterolemia; Acquired hypothyroidism; Palpitations; Vitamin D deficiency disease Start: 05-30-2019 End: 05-30-2019 Emergency department patient visit Lexy Tapia Work Phone: [facility] ED Comment on above: Acute recurrent fron venkat sinusitis (Primary Dx); Acute middle ear effusion, bilateral Start: 04-23-2019 End: 04-23-2019 Subsequent hospital visit by physician Roni Dahl MD Work Phone: [facility] Comment on above: Diarrhea of presumed infectious origin Start: 03-10-2018 End: 03-10-2018 Patient encounter [facility]RE[facility] Start: 03-10-2018 End: 03-11-2018 Patient encounter ANDREWS FISH [facility] Start: 06-20-2017 End: 06-21-2017 Ambulatory JAMISON [facility] Facility[facility] Procedures Date Procedure Procedure Detail Performing Clinician Start: 11-14-2023 Basic metabolic panel calcium total Jessica Farrar MD Work Phone: Start: 11-14-2023 Ecg routine ecg w/least 12 lds w/i&r Jessica Farrar MD Work Phone: Start: 10-23-2023 Ecg routine ecg w/least 12 lds w/i&r Lexy Tapia MD Work Phone: Start: 10-23-2023 Urinalysis microscopic only Lexy Tapia MD Work Phone: Start: 10-23-2023 Urnls dip stick/tablet rgnt auto w/o microscopy Lexy Tapia MD Work Phone: Start: 10-23-2023 Assay of troponin quantitative Francesco Tapia MD Work Phone: Start: 10-23-2023 Ecg routine ecg w/least 12 lds w/i&r Lexy Tapia MD Work Phone: Start: 10-23-2023 Comprehensive metabolic panel Marvin Tapia MD Work Phone: Start: 07-01-2023 COVID-19, RAPID Monster Mei MD Work Phone: Start: 07-01-2023 Iaadiadoo influenza Monster Mei MD Work Phone: Start: 03-19-2023 Procedure on hip MD Roni Dahl Work Phone: Start: 03-13-2023 Us retroperitoneal real time w/image limited Yanelis Guzman MD Work Phone: Start: 03-07-2023 X-ray of lumbar spine, six views including bending views MD Roni Dahl Work Phone: Start: 02-21-2023 MR lumbar spine wo con MD Roni Dahl Work Phone: Start: 11-25-2022 Radiologic exam chest 2 views Salomon gonzalez MD Work Phone: Start: 11-25-2022 End: 11-25-2022 Ct head/brain w/o contrast material Salomon Correa MD Work Phone: Start: 11-25-2022 Comprehensive metabolic panel Salomon gonzalez MD Work Phone: Start: 11-25-2022 Urinalysis microscopic only Salomon schreiebr MD Work Phone: Start: 11-25-2022 Urnls dip stick/tablet rgnt auto w/o microscopy Salomon Correa MD Work Phone: Start: 08-29-2022 Radiologic exam chest 2 views Reagan mcdowell MD Work Phone: Start: 07-26-2022 Esophagogastroduodenoscopy Vonda HERNANDEZ Start: 07-17-2022 Radiofrequency destruction of peripheral nerve MD Roni Dahl Work Phone: Start: 07-03-2022 Radiofrequency destruction of peripheral nerve MD Roni Dahl Work Phone: Start: 05-29-2022 Injection of anesthetic agent into peripheral nerve for analgesia MD Roni Dahl Work Phone: Start: 05-07-2022 MR lumbar spine wo con MD Roni Dahl Work Phone: Start: 03-27-2022 Injection of local anesthetic into sacroiliac joint MD Roni Dahl Work Phone: Start: 03-14-2022 X-ray of lumbar spine, four views MD Cristine Dahl Work Phone: Start: 01-31-2022 Screening mammography bi 2-view breast inc cad Roni Dahl MD Work Phone: Start: 12-07-2021 Dual energy X-ray absorptiometry MD Yaneth Dahl Work Phone: Start: 11-30-2021 Radex shoulder complete minimum 2 views Angelito Meyer DO Work Phone: Start: 10-26-2021 Urinalysis microscopic only Antwon block MD Work Phone: Start: 10-26-2021 Urnls dip stick/tablet rgnt auto w/o microscopy Antwon Guo MD Work Phone: Start: 10-14-2021 Urinalysis microscopic only Lexy Tapia MD Work Phone: Start: 10-14-2021 Urnls dip stick/tablet rgnt auto w/o microscopy Lexy Tapia MD Work Phone: Start: 08-29-2021 Ecg routine ecg w/least 12 lds w/i&r Reagan Givens MD Work Phone: Start: 08-10-2021 Radex shoulder complete minimum 2 views Angelito Meyer DO Work Phone: Start: 07-28-2021 Repair of musculotendinous cuff of shoulder Donna Johanna Start: 04-27-2021 Radex shoulder complete minimum 2 views Angelito Meyer DO Work Phone: Start: 01-09-2021 Blood count complete automated Roni cordoba MD Work Phone: Start: 12-09-2020 Blood count complete automated Roni cordoba MD Work Phone: Start: 11-27-2020 COVID-19, RAPID Darryl Sandoval MD Work Phone: Start: 11-27-2020 Comprehensive metabolic panel Darryl farias MD Work Phone: Start: 11-27-2020 Urnls dip stick/tablet reagent auto microscopy Darryl Sandoval MD Work Phone: Start: 11-22-2020 Comprehensive metabolic panel Roni keyes MD Work Phone: Start: 11-18-2020 Urinalysis microscopic only Naida field MD Work Phone: Start: 11-18-2020 Urnls dip stick/tablet rgnt auto w/o microscopy Naida Grissom MD Work Phone: Start: 11-18-2020 End: 11-18-2020 Basic metabolic panel calcium total Naida Grissom MD Work Phone: Start: 11-18-2020 Hepatic function panel Naida Grissom MD Work Phone: Start: 08-11-2020 25 hydroxy includes fractions if performed Reagan Givens Work Phone: Start: 08-11-2020 Assay of magnesium Reagan Givens Work Phone: Start: 08-11-2020 Assay of thyroid stimulating hormone tsh Reagan Givens Work Phone: Start: 08-11-2020 Blood count complete auto&auto difrntl wbc Reagan Dejan Adisphyllisradha Work Phone: Start: 08-11-2020 Comprehensive metabolic panel Reagan Arceo esaa Work Phone: Start: 08-11-2020 Lipid panel Reagan Givens Work Phone: Start: 08-11-2020 PATIENT FASTING? Reagan Givens Work Phone: Start: 08-09-2020 Ecg routine ecg w/least 12 lds w/i&r Reagan Givens Work Phone: Start: 03-31-2020 Ct head/brain w/o contrast material Lexy Tapia Work Phone: Start: 03-31-2020 Radiologic exam chest single view Zaho Tapia Work Phone: Start: 03-31-2020 Assay of thyroid stimulating hormone tsh Lexy Tapia Work Phone: Start: 03-31-2020 Assay of troponin quantitative Francesco Tapia Work Phone: Start: 03-31-2020 Blood count complete auto&auto difrntl wbc Lexy Tapia Work Phone: Start: 03-31-2020 Urinalysis microscopic only Lexy Tapia Work Phone: Start: 03-31-2020 Urnls dip stick/tablet rgnt auto w/o microscopy Lexy Tapia Work Phone: Start: 07-07-2019 Comprehensive metabolic panel Reagan mcdowell MD Work Phone: Start: 07-07-2019 Lipid panel Reagan Givens MD Work Phone: Start: 07-07-2019 PATIENT FASTING? Reagan Givens MD Work Phone: Start: 07-07-2019 Radiologic exam chest 2 views Reagan mcdowell MD Work Phone: Start: 06-03-2019 Repair of stress incontinence by suprapubic sling Donna Spencer Start: 05-30-2019 Radiologic exam chest 2 views Marvin Carlson Willie Work Phone: Start: 04-23-2019 Toxin/antitoxin assay tissue culture Roni Dahl MD Work Phone: Start: 03-24-2019 Cystourethroscopy with dilation of urethral stricture Donna Spencer Start: 12-12-2015 Epidural injection of lumbar spine using fluoroscopic guidance Donna Spencer Comment on above: L5-S1 60 % immediate relief still contin ues Start: 11-17-2014 Radiofrequency ablation of nerve root of lumbar spine using fluoroscopic guidance Donna Spencer Comment on above: LEFT L2-S1 11/17/14 Rt RFA 70% r elief Start: 11-03-2014 Radiofrequency ablation of nerve root of lumbar spine using fluoroscopic guidance [employer] Comment on above: RIGHT L2-S1 Start: 10-20-2014 Injection of facet joint using fluoroscopic guidance [employer] Comment on above: BILATERAL L3-S1 LUMBAR FACET Start: 08-11-2014 Local anesthetic facet joint nerve block [facility] Comment on above: Bilateral L3-S1 Start: 03-19-2014 Injection of sacroiliac joint using fluoroscopic guidance [employer] Comment on above: Bilateral SIJI Start: 03-23-2013 Injection of sacroiliac joint using fluoroscopic guidance [employer] Comment on above: Bilateral SIJI Start: 11-17-2012 Injection of sacroiliac joint using fluoroscopic guidance [employer] Comment on above: Left SIJI Start: 10-13-2012 Injection of sacroiliac joint using fluoroscopic guidance [employer] Comment on above: Right SIJI Start: 04-30-2012 Endoscopic examination of esophagus, stomach and duodenum [facility] Start: 11-16-2011 Epidural injection of lumbar spine using fluoroscopic guidance [facility] Comment on above: Left L5-S1 Start: 10-05-2011 Epidural injection of lumbar spine using fluoroscopic guidance [employer] Comment on above: Left L5-S1 Start: 08-27-2011 Cystourethroscopy with dilation of urethral stricture [facility] Start: 09-29-2010 Catheterization of right heart Donna Florinda ha Basal cell carcinoma of forehead (disorder) [employer] Decompression of median nerve Donna Spencer Comment on above: RIGHT IN 2002, LEFT 2005 Extraction of cataract Donna Spencer Gastric polypectomy Donna Cloud History of repair of musculotendinous cuff of shoulder H/O repair of right rotator cuff [facility] 1 Repair of ankle Donna Hogue tz Repair of hip Donna Spencer Repair of ligament Donna Neely nmetz Comment on above: RIGHT ANKLE Repair of ventral hernia Zaina Spencer Total abdominal hyst erectomy with bilateral salpingo-oophorectomy Donna Spencer Total arthroplasty o f knee, geomedic or polycentric Donna Spencer Comment on above: RIGHT 2005, LEFT 2010 Plan of Treatment Date Care Activity Detail Author Start: 01-18-2026 Colon cancer screen colonoscopy Colon cancer screen colonoscopy [place], [place] Start: 01-18-2026 Screening for malignant neoplasm of colon Colon cancer screen colonoscopy [place], [place] Start: 11-17-2024 End: 11-17-2024 Patient encounter procedure 11/17/2024 10:00 AM EDT Office Visit [facility] [address] [place] [address] John Paul Mayfield, TROLLEY COLLECTOR - STOCKHOLDER [address] [place] [address] [address] [place] [id number] 1 year f/u, US prior-(make sure we have results, patient will be going out of town) [facility] Comment on above: 1 year f/u, US prior-(make sure we have results, patient will be going out of town) Start: 08-31-2024 End: 08-31-2024 Patient encounter procedure 08/31/2024 9:00 AM EST Office Visit [facility] [employer] [address] [place] [id number] Reagan Givens MD [address] [place] [address] 1 year follow up labs ekg cxr [facility] [employer] Comment on above: 1 year follow up labs ekg cxr Start: 08-20-2024 [facility] Start: 08-06-2024 Depression Monitoring [facility] Start: 05-07-2024 End: 05-07-2024 Patient encounter procedure 05/07/2024 9:30 AM EST Office Visit [facility] [address] [place] [id number] Grayson Hutchinson Jr., DO [address] [place] [address] [facility] Start: 05-06-2024 Annual Wellness Visit (Medicare) Annual Wellness Visit (Medicare) [facility] Start: 05-06-2024 Depression Monitoring Depression Monitoring [facility] [employer] [facility] Start: 03-23-2024 End: 03-23-2024 Patient encounter procedure 03/23/2024 11:00 AM EDT Office Visit [facility] [address] [place] [address] John Paul Mayfield, TROLLEY COLLECTOR - STOCKHOLDER [address] [place] [address] Dr [address] [place] [address] 1 year f/u, US prior [facility] Comment on above: 1 year f/u, US prior Start: 03-20-2024 End: 03-20-2024 Patient encounter procedure 03/20/2024 11:00 AM EDT Office Visit [facility] [address] [place] [phone] John Paul Mayfield, TROLLEY COLLECTOR - STOCKHOLDER [address] [place] [address] Dr [address] [place] [address] 1 year f/u, US prior-(make sure we have results, patient will be going out of town) [facility] Comment on above: 1 year f/u, US prior-(make sure we have results, patient will be going out of town) Start: 03-18-2024 End: 03-18-2024 Patient encounter procedure 03/18/2024 1:00 PM EDT Appointment [facility] [address] [place] [address] epic/ sched w/ Anastasiya in office [facility] Comment on above: epic/ sched w/ Anastasiya in office Start: 02-11-2024 End: 02-11-2024 Patient encounter procedure 02/11/2024 8:00 AM EDT [facility] [address] [place] [phone] Roni Dahl MD [address] [place] [address] Appt Reason: Routine Existing Condition [facility] Comment on above: Appt Reason: Routine Existing Condition Follow Up Start: 12-31-2023 Tetanus vaccination Tetanus: Every 10yrs [facility] Start: 12-19-2023 Hemolytic complement CH50 level [facility] Start: 12-12-2023 End: 12-12-2023 Patient encounter procedure 12/12/2023 10:00 AM EDT Office Visit [facility] [employer] [address] [place] [phone] Reagan Givens MD [address] [place] [address] 3 wk f/u ED tachycardia & event monitor [facility] [employer] Comment on above: 3 wk f/u ED tachycardia & event monitor Start: 11-14-2023 End: 11-14-2023 Patient encounter procedure 11/14/2023 10:45 AM EDT Procedure visit [facility] U[facility] [address] [facility] [address] [place] [address] Vadim Peña PAYenniC [address] [place] [address] urogram [facility] Urology Comment on above: cysto after CT urogram Start: 11-01-2023 Depression Monitoring Depression Monitoring [facility] Start: 09-19-2023 Hemolytic complement CH50 [facility] Start: 09-02-2023 End: 09-02-2023 Patient encounter procedure [facility] [employer] Comment on above: 1 yr f/u lab/ekg/ Start: 08-21-2023 Lipid panel Lipids [facility] Start: 08-06-2023 End: 08-06-2023 Patient encounter procedure 08/06/2023 8:40 AM EST Office Visit [facility] [address] [place] [address] Roni Dahl MD [address] [place] [address] 3 mos - Hyperlipidemia, depression, Hypothyroid, gerd, insomnia, sleep apnea, arthritis [facility] Comment on above: 3 mos - Hyperlipidemia, depression, Hypo thyroid, gerd, insomnia, sleep apnea, arthritis Start: 05-27-2023 Hemolytic complement CH50 [facility] Start: 05-09-2023 End: 05-09-2023 Patient encounter procedure 05/09/2023 11:30 AM EST Appointment [facility] [address] [place] [address] SELF REF/PT [facility] Comment on above: SELF REF/PT Start: 05-06-2023 End: 05-06-2023 Patient encounter procedure [facility] Comment on above: Return in about 6 months (around 05/03/20) for Hyperlipidemia, Hypothyroid, depression, gerd, arthritis and MEDICARE wellness Start: 11-04-2023 Annual Wellness Visit (AWV) Annual Wellness Visit (AWV) [facility] Start: 05-03-2023 Depression Monitoring Depression Monitoring [facility] Start: 05-03-2023 History and physical examination, annual for health maintenance Wellness Visit [facility] Start: 03-22-2023 End: 03-22-2023 Patient encounter procedure [facility] Comment on above: 3 month f/u, US results Start: 03-20-2023 End: 03-20-2023 Patient encounter procedure 03/20/2023 Office Visit [facility] Start: 03-19-2023 [facility] Start: 03-13-2023 End: 03-13-2023 Patient encounter procedure 03/13/2023 Appointment Radiology Yanelis Guzman MD [address] [place] [address], [address] [place] [address] [facility] Start: 03-01-2023 COVID-19 Vaccine (2022- season) COVID-19 Vaccine ( season) [facility] Start: 03-01-2023 Influenza vaccination Sequential Influenza Vaccine (#1) [facility] Start: 01-29-2023 Influenza vaccination Flu vaccine (#1) [facility] Start: 12-21-2022 End: 12-21-2022 Patient encounter procedure 12/21/2022 Office Visit [facility] Start: 10-31-2022 End: 10-31-2022 Patient encounter procedure 10/31/2022 Office Visit Family Medicine Roni Dahl MD [address] [place], [place] [phone] [facility] Start: 09-05-2022 COVID-19 Vaccine (5 - Moderna series) COVID-19 Vaccine (5 - Moderna series) [facility] Start: 09-03-2022 End: 09-03-2022 Patient encounter procedure [facility] [employer] Start: 08-29-2022 Lipid panel [facility] Start: 08-29-2022 Thyroid stimulating hormone measurement [facility] Start: 08-21-2022 Bacteria identified in Urine by Culture [facility] Start: 08-21-2022 Hemolytic complement CH50 level [facility] Start: 07-31-2022 End: 07-31-2022 Patient encounter procedure 07/31/2022 Appointment Physical Therapy Maria R Mlahotra, PT [facility] Start: 07-17-2022 [facility] Start: 07-03-2022 [facility] Start: 07-03-2022 Radiofrequency destruction of peripheral nerve DH Nerve Radio Frequency (Left) [facility] Start: 05-29-2022 [facility] Start: 05-03-2022 Annual Wellness Visit (AWV) Annual Wellness Visit (AWV) [facility] Start: 05-03-2022 End: 05-03-2022 Patient encounter procedure 05/03/2022 Office Visit Family Medicine Roni Dahl MD [address] [place] [id number] [facility] Start: 05-02-2022 Depression Monitoring Depression [facility] [facility] Start: 03-27-2022 [facility] Start: 03-01-2022 Influenza vaccination Flu vaccine (#1) [facility] Start: 10-31-2021 End: 10-31-2021 Patient encounter procedure 10/31/2021 Appointment Physical Therapy Zo Chen, PT [address] [place] [address] [facility] Start: 10-26-2021 COVID-19 Vaccine (4 - Booster for Moderna series) COVID-19 Vaccine (4 - Booster for Moderna series) [facility] Start: 10-11-2021 End: 10-11-2021 Patient encounter procedure 10/11/2021 Appointment Physical Therapy Zo Chen, PT [address] [place] [address] [facility] Start: 10-09-2021 End: 10-09-2021 Patient encounter procedure 10/09/2021 Appointment Physical Therapy Velasquez Martel PTA [facility] Start: 10-04-2021 End: 10-04-2021 Patient encounter procedure 10/04/2021 Appointment Physical Therapy Zo Chen, PT [address] [place] [address] [facility] Start: 10-02-2021 End: 10-02-2021 Patient encounter procedure 10/02/2021 Appointment Physical Therapy Velasquez Martel PTA [facility] Start: 09-28-2021 End: 09-28-2021 Patient encounter procedure 09/28/2021 Appointment Physical Therapy Velasquez Martel PTA [facility] Start: 09-25-2021 End: 09-25-2021 Patient encounter procedure 09/25/2021 Appointment Physical Therapy Nancy Nunez [facility] Start: 09-21-2021 End: 09-21-2021 Patient encounter procedure 09/21/2021 Appointment Physical Therapy Velasquez Martel PTA [facility] Start: 09-19-2021 End: 09-19-2021 Patient encounter procedure 09/19/2021 Appointment Physical Therapy Zo Chen, PT [address] [place] [address] [facility] Start: 09-15-2021 End: 09-15-2021 Patient encounter procedure 09/15/2021 Appointment Physical Therapy Velasquez Martel PTA [facility] Start: 09-13-2021 End: 09-13-2021 Patient encounter procedure 09/13/2021 Appointment Physical Therapy Velasquez Martel PTA [facility] Start: 09-08-2021 End: 09-08-2021 Patient encounter procedure 09/08/2021 Appointment Physical Therapy Zo Chen, PT [address] [place] [address] [facility] Start: 09-07-2021 Subsequent hospital visit by physician 09/07/2021 Hospital Encounter Physical Therapy Nancy Nunez [facility] Start: 09-05-2021 End: 09-05-2021 Patient encounter procedure 09/05/2021 Appointment Physical Therapy Velasquez Martel PTA [facility] Start: 09-04-2021 End: 09-04-2021 Patient encounter procedure [facility] [employer] Start: 08-31-2021 End: 08-31-2021 Patient encounter procedure 08/31/2021 Appointment Physical Therapy Velasquez Martel PTA [facility] Start: 08-17-2021 Subsequent hospital visit by physician 08/17/2021 Hospital Encounter Physical Therapy Zo Chen, PT [address] [place] [address] [facility] Start: 08-11-2021 Lipid panel Lipid screen [facility] Start: 08-11-2021 Thyroid stimulating hormone measurement TSH testing [facility] Start: 08-11-2021 TSH Qn TSH testing [facility] Work Phone: Start: 08-02-2021 End: 08-02-2021 Patient encounter procedure [facility] Start: 06-29-2021 End: 06-29-2021 Patient encounter procedure 06/29/2021 Appointment Physical Therapy Zo Chen, PT [address] [place] [address] [facility] Start: 06-26-2021 End: 06-26-2021 Patient encounter procedure 06/26/2021 Appointment Physical Therapy Zo Chen, PT [address] [place] [address] [facility] Start: 06-22-2021 End: 06-22-2021 Patient encounter procedure 06/22/2021 Appointment Physical Therapy Zo Chen, PT [address] [place] [address] [facility] Start: 06-20-2021 End: 06-20-2021 Patient encounter procedure 06/20/2021 Appointment Physical Therapy Zo Chen, PT [address] [place] [address] [facility] Start: 06-14-2021 End: 06-14-2021 Patient encounter procedure 06/14/2021 Appointment Physical Therapy Zo Chen, PT [address] [place] [address] [facility] Start: 05-17-2021 End: 05-17-2021 Patient encounter procedure 05/17/2021 Appointment Physical Therapy Velasquez Martel PTA [facility] Start: 05-15-2021 End: 05-15-2021 Patient encounter procedure 05/15/2021 Appointment Physical Therapy Velasquez Martel PTA [facility] Start: 05-10-2021 End: 05-10-2021 Patient encounter procedure 05/10/2021 Appointment Physical Therapy Velasquez Martel PTA [facility] Start: 05-05-2021 End: 05-05-2021 Patient encounter procedure 05/05/2021 Appointment Physical Therapy Zo Chen, PT [address] [place] [address] [phone] [facility] Start: 05-02-2021 End: 05-02-2021 Patient encounter procedure 05/02/2021 Office Visit Family Medicine Roni Dahl MD [address] [place] [address] [phone] [facility] Start: 05-02-2021 End: 05-02-2021 Patient encounter procedure 05/02/2021 Appointment Physical Therapy Rashmi Garcia [facility] Start: 04-21-2021 Annual Wellness Visit (AWV) Annual Wellness Visit (AWV) [place] Start: 03-31-2021 TSH Qn TSH testing [place], [place] Start: 03-01-2021 Influenza vaccination Flu vaccine (#1) [facility] Work Phone: Start: 02-23-2021 COVID-19 Vaccine (3 - Booster for Moderna series) COVID-19 Vaccine (3 - Booster for Moderna series) [facility] Start: 01-30-2021 End: 01-30-2021 Office Visit 01/30/2021 Office Visit Family Medicine Roni Dahl MD [address] [place] [address] [facility] Start: 01-18-2021 Screening for malignant neoplasm of colon Colon cancer screen colonoscopy [place], [place] Start: 09-06-2020 End: 09-06-2020 Office Visit 09/06/2020 Office Visit Cardiology Reagan Givens MD [address] [place] [address] [facility] [employer] Start: 07-28-2020 End: 07-28-2020 Office Visit [facility] Start: 07-11-2020 End: 07-11-2020 Office Visit 07/11/2020 Office Visit Cardiology Reagan Givens MD [address] [place] [address] [facility] [employer] Start: 07-07-2020 Lipid panel Lipid screen [place], [place] Start: 07-07-2020 Lipid screen Lipid screen [facility] Phone: Start: 07-07-2020 TSH Qn TSH testing [place], [place] Start: 07-07-2020 TSH testing TSH testing [facility] Phone: Start: 05-10-2020 Shingles Vaccine (3 of 3) Shingles Vaccine (3 of 3) [place] Start: 04-14-2020 Annual Wellness Visit (AWV) Annual Wellness Visit (AWV) [place] Start: 04-13-2020 Annual Wellness Visit (AWV) Annual Wellness Visit (AWV) [place] Start: 03-13-2020 Breast cancer screen Breast cancer screen [place], [place] Start: 03-13-2020 Screening for malignant neoplasm of breast Breast cancer screen [place], [place] Start: 01-25-2020 End: 01-25-2020 Office Visit 01/25/2020 Office Visit Family Roni Villegas MD [address] [place] [address] [phone] [facility] Start: 07-30-2019 End: 07-30-2019 Office Visit 07/30/2019 Office Visit Family Roni Villegas MD [address] [place] [address] [phone] [facility] Start: 07-27-2019 End: 07-27-2019 Patient encounter procedure 07/27/2019 Office Visit Roni Rico MD [address] [place], [place] [phone] [facility] Start: 07-13-2019 End: 07-13-2019 Office Visit 07/13/2019 Office Visit Cardiology Reagan Givens MD [address] [place] [address] [facility] [employer] Start: 07-09-2019 Lipid screen Lipid screen [place] Start: 07-09-2019 TSH testing TSH testing [place] Start: 12-31-2013 DTaP/Tdap/Td vaccine (1 - Tdap) DTaP/Tdap/Td vaccine (1 - Tdap) [facility] Start: 12-19-2011 Shingles Vaccine (2 of 3) Shingles Vaccine (2 of 3) [place] Start: 2009 Fall risk assessment Falls Risk Assessment [facility] Start: 2004 Respiratory Syncytial Virus (RSV) or age 60 yrs+ (1 - 1-dose 60+ series) Respiratory Syncytial Virus (RSV) or age 60 yrs+ (1 - 1-dose 60+ series) [facility] Start: 1984 Screening for malignant neoplasm of breast Mammogram [facility] Start: 12-19-1963 DTaP/Tdap/Td vaccine (1 - Tdap) DTaP/Tdap/Td vaccine (1 - Tdap) [place] Start: 1962 Hepatitis C screening [facility] Start: 1960 COVID-19 Vaccine (1 of 2) COVID-19 Vaccine (1 of 2) [place] Start: 1956 Depression screening using PHQ-9 (Patient Health Questionnaire 9) score Depression Screening (PHQ-2/9) [facility] Start: 12-19-1955 DTaP/Tdap/Td vaccine (1 - Tdap) DTaP/Tdap/Td vaccine (1 - Tdap) [place] Start: 1944 Hepatitis C screen Hepatitis C screen [place], [place] Start: 1944 Hepatitis C screening Hepatitis C screen [facility] Start: 1944 Screening for osteoporosis Dexa Scan [facility] Complement C3 [Mass/volume] in Serum or Plasma [facility] Complement C3 [Mass/volume] in Serum or Plasma [facility] Complement C3 [Mass/volume] in Serum or Plasma [facility] Complement C3 [Mass/volume] in Serum or Plasma [facility] Complement C4 [Mass/volume] in Serum or Plasma [facility] Complement C4 [Mass/volume] in Serum or Plasma [facility] Complement C4 [Mass/volume] in Serum or Plasma [facility] Complement C4 [Mass/volume] in Serum or Plasma [facility] End: 06-29-2020 COVID-19 COVID-19 Lab Routine Once for 1 Occurrences starting 06/29/2020 until 06/29/2020 [place] Comment on above: Once for 1 Occurrences starting 06/29/20 20 until 06/29/2020 COVID-19 COVID-19 Lab Rou dane 06/29/2020 11:25 AM EST [place] End: 06-12-2021 COVID-19 [facility] Work Phone: Comment on above: 1 Occurrences starting 06/12/2021 until 06/12/2021 End: 03-31-2020 Covid-19 Ambulatory Covid-19 Ambulatory Lab Routine Viral illness Exposure to COVID-19 virus 1 Occurrences starting 03/31/2020 until 03/31/2020 [facility] Comment on above: 1 Occurrences starting 03/31/2020 until 03/31/2020 Covid-19 Ambulatory Covid-19 Amb ulatory Lab Routine Viral illness Exposure to COVID-19 virus 03/31/2020 1:26 PM EDT [employer] [facility] Head WO Contrast CT Head WO C ontrast Imaging STAT 11/25/2022 10:53 AM EDT [employer] Phone: CT SINUS WO CONTRAST CT SINUS WO CONTRAST Imaging STAT 11/25/2022 10:55 AM EDT [employer] Phone: End: 10-26-2021 Culture, Genital [employer] Phone: Comment on above: 1 Occurrences starting 10/26/2021 until 10/26/2021 End: 11-18-2020 Culture, Urine Culture, Urine Microbiology Routine Once for 1 Occurrences starting 11/18/2020 until 11/18/2020 [employer] Phone: Comment on above: Once for 1 Occurrences starting 11/19/19 21 until 11/18/2020 Culture, Urine Culture, Urine Microbiology Routine 11/18/2020 8:31 AM EDT [employer] Phone: End: 10-14-2021 Culture, Urine [employer] Phone: Comment on above: Once for 1 Occurrences starting 10/15/19 22 until 10/14/2021 End: 10-26-2021 Cytopathology procedure, preparation of smear, genital source PAP SMEAR Lab Routine Women's annual routine gynecological examination 1 Occurrences starting 10/26/2021 until 10/26/2021 [employer] Phone: Comment on above: 1 Occurrences starting 10/26/2021 until 10/26/2021 EKG 12 Lead [employer] Phone: EKG 12 Lead EKG 12 Lead ECG Routine Essential hypertension Palpitations Hypothyroidism, unspecified type Hyperlipidemia, unspecified hyperlipidemia type Vitamin D deficiency disease 08/29/2021 7:22 AM EST [employer] Work Phone: EKG 12 Lead EKG 12 Lead ECG STAT 10/23/2023 9:56 AM EDT [employer] EKG 12 Lead EKG 12 Lead ECG STAT 10/23/2023 12:15 PM EDT [facility] 12 Lead EKG 12 Lead ECG Routine 11/14/2023 6:42 PM EDT [employer] End: 11-27-2020 Gastrointestinal Panel, Molecular Gastrointestinal Panel, Molecular Microbiology Routine One Time for 1 Occurrences starting 11/27/2020 until 11/27/2020 [employer] Phone: Comment on above: One Time for 1 Occurrences starting 10/31 until 11/27/2020 Gastrointestinal Urban el, Molecular Gastrointestinal Panel, Molecular Microbiology STAT 11/27/2020 11:00 AM EDT [employer] Work Phone: End: 11-09-2019 ANA DIGITAL SCREEN W OR WO CAD BILATERAL ANA DIGITAL SCREEN W OR WO CAD BILATERAL Imaging Routine Visit for screening mammogram 1 Occurrences starting 11/09/2019 until 11/09/2019 [facility] Comment on above: 1 Occurrences starting 11/09/2019 until 11/09/2019 ANA DIGITAL SCREEN W OR WO CAD BILATERAL ANA DIGITAL SCREEN W OR WO CAD BILATERAL Imaging Routine Visit for screening mammogram 11/09/2019 11:37 AM EDT [facility] End: 01-20-2021 ANA WU DIGITAL SCREEN BILATERAL ANA WU DIGITAL SCREEN BILATERAL Imaging Routine Screening mammogram, encounter for 1 Occurrences starting 01/20/2021 until 01/20/2021 [employer] Phone: Comment on above: 1 Occurrences starting 01/20/2021 until 01/20/2021 ANA WU DIGITAL SCR EEN BILATERAL ANA WU DIGITAL SCREEN BILATERAL Imaging Routine Screening mammogram, encounter for 01/20/2021 8:26 AM EDT [employer] Work Phone: Patient Education [facility] Work Phone: Patient referral [facility] Work Phone: XR CHEST STANDARD (2 VW) XR CHES T STANDARD (2 VW) Imaging STAT 05/30/2019 6:19 AM EST [facility], [place] Immunizations Immunization Date Immunization Notes Care Provider Sierra paredes 05-06-2023 Influenza, FLUAD, (a ge 65 y+), Adjuvanted, 0.5mL Monster Mei MD Work Phone: [facility] 05-08-2022 SARS-CoV-2 (COVID-19 ) [id number] Donnabaylee JangJohanna [facility] 05-03-2022 influenza virus vaccine, unspecified formulation Donna Jangmetz [facility] Comment on above: Result Comment: 2021: VIS DATE: 02/03/2021 05-03-2022 Influenza, FLUAD, (a ge 65 y+), Adjuvanted, 0.5mL Maria R Malhotra PT [facility] Work Phone: 06-27-2021 COVID-19, Moderna, Booster, PF, 50mcg/0.25ml [facility] Work Phone: 05-02-2021 Influenza, Quadv, adjuvanted, 65 yrs +, IM, PF (Fluad) Rashmi Garcia [facility] 08-26-2020 COVID-19, Moderna, Primary or Immunocompromised, PF, 100mcg/0.5mL Mwh 1 [employer] Work Phone: 07-29-2020 COVID-19, Moderna, Primary or Immunocompromised, PF, 100mcg/0.5mL [facility] 1 [facility] Work Phone: 05-12-2020 zoster vaccine recombinant [facility] Schedule [facility], [place] 03-15-2020 influenza virus vaccine, unspecified formulation Maria R Malhotra PT [facility] Work Phone: 03-15-2020 Influenza, High-dose , Quadv, 65 yrs +, IM (Fluzone) [facility] Schedule [facility] 03-15-2020 influenza, injectabl e, quadrivalent, preservative free [facility] 03-15-2020 zoster vaccine recombinant [facility], [place] 04-14-2019 influenza virus vaccine, unspecified formulation Donna Spencer [facility] Comment on above: Result Comment: 2021: VIS DATE: 02/12/2019 04-14-2019 influenza, injectabl e, quadrivalent, preservative free [facility] 04-07-2018 influenza virus vaccine, unspecified formulation Donna Spencer [facility] Comment on above: Result Comment: 2021: VIS DATE: 02/04/2015 04-07-2018 influenza, injectabl e, quadrivalent, preservative free [facility] 04-10-2017 influenza virus vaccine, unspecified formulation [facility] 05-14-2016 influenza, high dose seasonal, preservative-free [facility] 03-01-2016 pneumococcal conjuga te vaccine, [address] [facility] 04-12-2015 influenza virus vaccine, unspecified formulation [facility] 04-24-2014 influenza virus vaccine, unspecified formulation [facility] 04-24-2014 influenza, whole Donna Rosmery curry [facility] 12-30-2013 Td, unspecified formulation [facility] 12-30-2013 tetanus and diphther ia toxoids, adsorbed, preservative free, for adult use (2 Lf of tetanus toxoid and 2 Lf of diphtheria toxoid) Donna Spencer [facility] 12-30-2013 tetanus and diphther ia toxoids, adsorbed, preservative free, for adult use (5 Lf of tetanus toxoid and 2 Lf of diphtheria toxoid) Monster Mei MD Work Phone: [facility] 07-17-2013 influenza virus vaccine, unspecified formulation [facility] 07-17-2013 influenza, whole Donna Botello marleenvivien [facility] 10-24-2011 zoster vaccine, live [facility] lar[place] 03-31-2011 pneumococcal polysaccharide vaccine, 23 valent [facility] Payers Date Payer Category Payer Self-pay [id number] 2022 Private Health Insurance [id number] 2020 Private Health Insurance [id number] .[id number] 2020 Private Health Insurance [id number] .[id number] 2014 Medicare MEDICARE MEDICAR E PART A AND B xxxxxxxxxxx 2014-Present [phone] [address] [address] [place] [address] xxxxxxxxxxx [id number] .[id number] 2014 Unknown [facility] xxxxxxxxxx 2014-Present [phone] [address] [place] [address] xxxxxxxxxx [id number] .7.3.884526.315 2014 Unknown [id number] 1.2.840.363991.1.13.239.2 .7.3.839139.315 2009 Medicare [id number]. 1.13.385.2 .7.3.002036.315 2009 Medicare [id number] 1.2.840.135031.1.13.239.2 .7.3.877969.315 1944 Unknown [id number] 2.16.840.1.639182.3.579.2 .173 1944 Unknown [id number] 2.16.840.1.220127.3.579.2 .173 1944 Unknown [id number] 2.16.840.1.619099.3.579.2 .173 1944 Unknown [id number] 2.16.840.1.405721.3.579.2 .173 1944 Unknown [id number] 2.16.840.1.103044.3.579.2 .173 1944 Unknown [id number] 2.16.840.1.349265.3.579.2 .173 1944 Unknown [id number] 2.16.840.1.761178.3.579.2 .173 1944 Unknown [id number] 2.16.840.1.916961.3.579.2 .903 1944 Unknown [id number] 2.16.840.1.074742.3.579.2 .903 1944 Unknown [id number] 2.16.840.1.825510.3.579.2 .196 1944 Unknown [id number] 2.16.840.1.548334.3.579.2 .196 1944 Unknown [id number] 2.16.840.1.668670.3.579.2 .196 1944 Unknown [id number] 2.16.840.1.772371.3.579.2 .196 1944 Unknown [id number] 2.16.840.1.021047.3.579.2 .174 1944 Unknown [id number] 2.16.840.1.414728.3.579.2 .174 1944 Unknown [id number] 2.16.840.1.748114.3.579.2 .174 1944 Unknown [id number] 2.16.840.1.332955.3.579.2 .174 1944 Unknown [id number] 2.16.840.1.497905.3.579.2 .174 1944 Unknown [id number] 2.16.840.1.978085.3.579.2 .174 1944 Unknown [id number] 2.16.840.1.804649.3.579.2 .174 1944 Unknown [id number] 2.16.840.1.325144.3.579.2 .174 1944 Unknown [id number] 2.16.840.1.485666.3.579.2 .174 1944 Unknown [id number] 2.16.840.1.192219.3.579.2 .174 1944 Unknown [id number] 2.16.840.1.145290.3.579.2 .174 1944 Unknown [id number] 2.16.840.1.814418.3.579.2 .174 1944 Unknown [id number] 2.16.840.1.400786.3.579.2 .174 1944 Unknown [id number] 2.16.840.1.101607.3.579.2 .174 1944 Unknown [id number] 2.16.840.1.551418.3.579.2 .174 1944 Unknown [id number] 2.16.840.1.785961.3.579.2 .174 1944 Unknown [id number] 2.16.840.1.784834.3.579.2 .174 1944 Unknown [id number] 2.16.840.1.807792.3.579.2 .174 1944 Unknown [id number] 2.16.840.1.749016.3.579.2 .174 1944 Unknown [id number] 2.16.840.1.332911.3.579.2 .174 1944 Unknown [id number] 2.16.840.1.636749.3.579.2 .174 1944 Unknown [id number] 2.16.840.1.218056.3.579.2 .174 1944 Unknown [id number] 2.16.840.1.500061.3.579.2 .174 1944 Unknown [id number] 2.16.840.1.686667.3.579.2 .174 1944 Unknown [id number] 2.16.840.1.943891.3.579.2 .174 1944 Unknown [id number] 2.16.840.1.269681.3.579.2 .174 1944 Unknown [id number] 2.16.840.1.316399.3.579.2 .174 1944 Unknown [id number] 2.16.840.1.362566.3.579.2 .174 1944 Unknown [id number] 2.16.840.1.081996.3.579.2 .174 1944 Unknown [id number] 2.16.840.1.718375.3.579.2 .174 1944 Unknown [id number] 2.16.840.1.968141.3.579.2 .174 1944 Unknown [id number] 2.16.840.1.893408.3.579.2 .174 1944 Unknown [id number] 2.16.840.1.408905.3.579.2 .174 1944 Unknown [id number] 2.16.840.1.681156.3.579.2 .174 1944 Unknown [id number] 2.16.840.1.016291.3.579.2 .727 1944 Unknown [id number] 2.16.840.1.976415.3.579.2 .727 Unknown [id number] 2.16.840.1.825477.3.579.2 .531 Unknown [id number] 2.16.840.1.205124.3.579.2 .531 Unknown [id number] 2.16.840.1.874050.3.579.2 .531 Unknown [id number] 2.16.840.1.777459.3.579.2 .531 Unknown [id number] 2.16.840.1.545108.3.579.2 .531 Unknown [id number] 2.16.840.1.967433.3.579.2 .531 Unknown [id number] 2.16.840.1.860771.3.579.2 .531 Social History Date Type Detail Facility Start: 05-30-2019 End: 03-14-2023 Tobacco smoking status MDIS Never smoker [facility] Start: 05-30-2019 End: 11-14-2023 Alcohol intake Current non-drinker of alcohol (finding) [place], [place] Start: 1945 Sex Assigned At Not on file [place] Start: 03-31-2020 End: 11-14-2023 Tobacco use and exposure Never used [place] Exposure to SARS-CoV-2 (event) Yes [place] Start: 10-04-2021 End: 07-12-2022 Exposure to SARS-CoV-2 (event) Not sure [employer] Start: 11-22-2020 End: 09-03-2022 History SDOH [facility]: Start: 11-22-2020 End: 09-03-2022 History SDOH Food Worry 1 [employer] Work Phone: Start: 1945 Sex Assigned At Female M jamar [employer] Work Phone: Start: 04-14-2019 End: 10-23-2023 Alcohol intake No [employer]- [place], [place] Tobacco smoking status Never [facility] Start: 09-03-2022 End: 11-25-2022 History SDOH Alcohol Frequency 2 [employer] Work Phone: Start: 11-25-2022 History SDOH Alcohol Std Drinks 0 [employer] Work Phone: Start: 11-25-2022 End: 10-23-2023 History of Social function [employer] How often to you hav e a drink containing alcohol? Monthly or less [employer] How often do you hav e 6 or more drinks on 1 occasion? Never [employer] (I/We) worried whether (my/our) food would run out before (I/we) got money to buy more. Never true [employer] At any time in the past 12 months, were you homeless or living in [facility] [including now]? No [employer] Start: 01-27-2021 Gender identity Identifies as female gender (finding) [employer] Start: 04-13-2020 Sexual orientation Heterosexual (fin ding) [employer] Start: 05-02-2023 Alcohol intake Ex-drinker (finding) [facility] NEGATED: Highlighted rowStart: NINF History of tobacco use Passive smoker [employer] Medical Equipment Procedure Code Equipment Code Equipment Origin al Text Equipment Identifier Dates Surgical procedure, using tension free vaginal tape, for stress incontinence [id number] FDA Start: 06-03-2019 Surgical procedure, using tension free vaginal tape, for stress incontinence [id number] FDA Start: 06-03-2019 Surgical procedure, using tension free vaginal tape, for stress incontinence [id number] FDA Start: 06-03-2019 Surgical procedure, using tension free vaginal tape, for stress incontinence [id number] FDA Start: 06-03-2019 Surgical procedure, using tension free vaginal tape, for stress incontinence [id number] FDA Start: 06-03-2019 Surgical procedure, using tension free vaginal tape, for stress incontinence [id number] FDA Start: 06-03-2019 Surgical procedure, using tension free vaginal tape, for stress incontinence [id number] FDA Start: 06-03-2019 Surgical procedure, using tension free vaginal tape, for stress incontinence [id number] FDA Start: 06-03-2019 Surgical procedure, using tension free vaginal tape, for stress incontinence [id number] FDA Start: 06-03-2019 Surgical procedure, using tension free vaginal tape, for stress incontinence [id number] FDA Start: 06-03-2019 Surgical procedure, using tension free vaginal tape, for stress incontinence [id number] FDA Start: 06-03-2019 Surgical procedure, using tension free vaginal tape, for stress incontinence [id number] FDA Start: 06-03-2019 Surgical procedure, using tension free vaginal tape, for stress incontinence [id number] FDA Start: 06-03-2019 Surgical procedure, using tension free vaginal tape, for stress incontinence [id number] FDA Start: 06-03-2019 {01}[id number] 82 7{17}[id number]{10}[id number] FDA Start: 07-28-2021 Goals Date Patient Goal Desired Activity /State Personal health goal Functional Status Date Assessment Result Facility 09-16-2023 Functional Status N/A [facility] 02-28-2023 Functional Status N/A [facility] 08-28-2022 Functional Status N/A [facility] 07-26-2022 Functional Status N/A [facility] 07-10-2022 Functional Status N/A [facility] Clinical Notes 11-18-2020 to 10-23-2023 Discharge InstructionsAttachments Note Date & Type Note Facility 10-23-2023 Hospital Discharg e instructions Lexy Tapia MD - 10/23/2023 10:48 AM EDT I believe the room, please go to Dr. Givens's office Kayode will place a 30-day event monitor to watch her closely, as per his instructions, your instruction on a low-dose medication to limit the rate of your heart, as well as a blood thinner. It is important to read the discharge structures regarding atrial fibrillation and blood thinners. 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 Stay well-hydrated with water or nonsugar sports drinks, Zofran ODT for any nausea as needed, I would advise not to use anything for the diarrhea at this time save soft toilet paper or baby wipes as needed. The following attachments cannot be sent through Care Everywhere.Serous Otitis Media (Belgian)Atrial Fibrillation (Belgian)Direct Oral Anticoagulants: Non-Vitamin K Antagonist (Belgian)Oral Rehydration (Belgian)documented in this encounter [facility] 09-17-2023 Note [id number] [facility] 09-16-2023 Hospital Discharg e instructions Patient Education 09/16/2023 14:59:47 Colonoscopy, Care After Surgery Salam (CUSTOM) Colonoscopy Care After Surgery Please read the instructions outlined below and refer to this sheet in the next few weeks. These discharge instructions provide you with general information on caring for yourself after you leave the hospital. Your doctor may also give you specific instructions. While your treatment has been planned according to the most current medical practices available, unavoidable complications occasionally occur. If you have any problems or questions after discharge, please call your doctor. ACTIVITY You may resume your regular activity, but move at a slower pace for the next 24 hours. Take frequent rest periods for the next 24 hours. Walking will help get rid of the air and reduce the bloated feeling in your abdomen (belly). No driving for 24 hours (because of the anesthesia (medicine) used during the test). You may shower. Do not sign any important legal documents or operate any machinery for 24 hours (because of the anesthesia used during the test). NUTRITION Drink plenty of fluids. You may resume your normal diet as instructed by your doctor. Begin with a light meal and progress to your normal diet. Heavy or fried foods are harder to digest and may make you feel nauseated (sick to your stomach). Avoid alcoholic beverages for 24 hours or as instructed. MEDICATIONS You may resume your normal medications unless your doctor tells you otherwise. WHAT YOU CAN EXPECT TODAY Some feelings of bloating in the abdomen. Passage of more gas than usual. Spotting of blood in your stool or on the toilet paper. FOLLOW-UP Your doctor will discuss the results of your test with you. SEEK IMMEDIATE MEDICAL ATTENTION IF: There is more than a spotting of blood in your stool. There is abdominal distention (your abdomen is swollen). There is vomiting. You have a temperature over 101.5 F. There is abdominal pain or discomfort that is severe or gets worse throughout the day. 09/16/2023 14:59:47 Hemorrhoids Hemorrhoids Hemorrhoids are swollen veins in and around the rectum or anus. There are two types of hemorrhoids: Internal hemorrhoids. These occur in the veins that are just inside the rectum. They may poke through to the outside and become irritated and painful. External hemorrhoids. These occur in the veins that are outside the anus and can be felt as a painful swelling or hard lump near the anus. Most hemorrhoids do not cause serious problems, and they can be managed with home treatments such as diet and lifestyle changes. If home treatments do not help the symptoms, procedures can be done to shrink or remove the hemorrhoids. What are the causes? This condition is caused by increased pressure in the anal area. This pressure may result from various things, including: Constipation. Straining to have a bowel movement. Diarrhea. . Obesity. Sitting for long periods of time. Heavy lifting or other activity that causes you to strain. Anal sex. Riding a bike for a long period of time. What are the signs or symptoms? Symptoms of this condition include: Pain. Anal itching or irritation. Rectal bleeding. Leakage of stool (feces). Anal swelling. One or more lumps around the anus. How is this diagnosed? This condition can often be diagnosed through a visual exam. Other exams or tests may also be done, such as: An exam that involves feeling the rectal area with a gloved hand (digital rectal exam). An exam of the anal canal that is done using a small tube (anoscope). A blood test, if you have lost a significant amount of blood. A test to look inside the colon using a flexible tube with a camera on the end (sigmoidoscopy or colonoscopy). How is this treated? This condition can usually be treated at home. However, various procedures may be done if dietary changes, lifestyle changes, and other home treatments do not help your symptoms. These procedures can help make the hemorrhoids smaller or remove them completely. Some of these procedures involve surgery, and others do not. Common procedures include: Rubber band ligation. Rubber bands are placed at the base of the hemorrhoids to cut off their blood supply. Sclerotherapy. Medicine is injected into the hemorrhoids to shrink them. Infrared coagulation. A type of light energy is used to get rid of the hemorrhoids. Hemorrhoidectomy surgery. The hemorrhoids are surgically removed, and the veins that supply them are tied off. Stapled hemorrhoidopexy surgery. The surgeon derrick the base of the hemorrhoid to the rectal wall. Follow these instructions at home: Eating and drinking Eat foods that have a lot of fiber in them, such as whole grains, beans, nuts, fruits, and vegetables. Ask your health care provider about taking products that have added fiber (fiber supplements). Reduce the amount of fat in your diet. You can do this by eating low-fat dairy products, eating less red meat, and avoiding processed foods. Drink enough fluid to keep your urine pale yellow. Managing pain and swelling Take warm sitz baths for 20 minutes, 3 4 times a day to ease pain and discomfort. You may do this in a bathtub or using a portable sitz bath that fits over the toilet. If directed, apply ice to the affected area. Using ice packs between sitz baths may be helpful. ?Put ice in a plastic bag. ?Place a towel between your skin and the bag. ?Leave the ice on for 20 minutes, 2 3 times a day. General instructions Take rfbv-jxv-onodgix and prescription medicines only as told by your health care provider. Use medicated creams or suppositories as told. Get regular exercise. Ask your health care provider how much and what kind of exercise is best for you. In general, you should do moderate exercise for at least 30 minutes on most days of the week (150 minutes each week). This can include activities such as walking, biking, or yoga. Go to the bathroom when you have the urge to have a bowel movement. Do not wait. Avoid straining to have bowel movements. Keep the anal area dry and clean. Use wet toilet paper or moist towelettes after a bowel movement. Do not sit on the toilet for long periods of time. This increases blood pooling and pain. Keep all follow-up visits as told by your health care provider. This is important. Contact a health care provider if you have: Increasing pain and swelling that are not controlled by treatment or medicine. Difficulty having a bowel movement, or you are unable to have a bowel movement. Pain or inflammation outside the area of the hemorrhoids. Get help right away if you have: Uncontrolled bleeding from your rectum. Summary Hemorrhoids are swollen veins in and around the rectum or anus. Most hemorrhoids can be managed with home treatments such as diet and lifestyle changes. Taking warm sitz baths can help ease pain and discomfort. In severe cases, procedures or surgery can be done to shrink or remove the hemorrhoids. This information is not intended to replace advice given to you by your health care provider. Make sure you discuss any questions you have with your health care provider. Document Revised: 12/27/2021 Document Reviewed: 12/27/2021 [employer] Patient Education 2022 Score The Board. 09/16/2023 14:59:47 Diverticulosis MAGR (CUSTOM) Diverticulosis Many people have small pouches in their colon called diverticulum. The diverticulum bulge outward through weak spots in the colon. You could have one or more of these pouches in the colon. The condition of having these pouches in the colon is called diverticulosis or diverticular disease. Diverticulosis is usually diagnosed by tests to evaluate something else. For example, you may have had a colonoscopy to screen for colon cancer when the diverticulosis was found. Most people with diverticulosis do not have any discomfort or problems. If symptoms develop, they may include mild cramps, bloating, and constipation. A complication of this condition is called diverticulitis. This is when the diverticulum become inflamed and infected. How to treat diverticulosis: Increasing the amount of fiber in the diet may reduce symptoms of diverticulosis and prevent complications such as diverticulitis (infected diverticuli). Fiber keeps stool soft and lowers pressure inside the colon so that bowel contents can move through easily. You should eat 20 to 35 grams of fiber each day. The table below shows the amount of fiber in some foods that you can easily add to your diet. Adding fiber slowly may decrease the bloating and fullness sometimes felt with an immediate high fiber diet. The doctor may also recommend taking a fiber product such as Citrucel or Metamucil once a day. In the past people with diverticulosis were to avoid nuts, corn, and seeds. This has not been found to be true. If you find that certain foods create cramping or bloating, avoid that food. Foods high in fiber include: Fresh fruits, fresh vegetables, legumes (beans), whole wheat bread, bran muffins or cereal, and nuts. See the table below for examples of high fiber foods. Remember, your goal is 20-35 grams per day. Amount of fiber in different foods Food Serving Grams of fiber Fruits Apple (with skin) 1 medium apple 4.4 Banana 1 medium banana 3.1 Oranges 1 orange 3.1 Prunes 1 cup, pitted 12.4 Juices Apple, unsweetened, w/added ascorbic acid 1 cup 0.5 Grapefruit, white, canned, sweetened 1 cup 0.2 Grape, unsweetened, w/added ascorbic acid 1 cup 0.5 [place] 1 cup 0.7 Vegetables Cooked Green beans 1 cup 4.0 Carrots 1/2 cup sliced 2.3 Peas 1 cup 8.8 Potato (baked, with skin) 1 medium potato 3.8 Raw [place] (with peel) 1 cucumber 1.5 Lettuce 1 cup shredded 0.5 Tomato 1 medium tomato 1.5 Spinach 1 cup 0.7 Legumes Baked beans, canned, no salt added 1 cup 13.9 Kidney beans, canned 1 cup 13.6 Palacio beans, canned 1 cup 11.6 Lentils, boiled 1 cup 15.6 Breads, pastas, flours Bran muffins 1 medium muffin 5.2 Oatmeal, cooked 1 cup 4.0 White bread 1 slice 0.6 Whole-wheat bread 1 slice 1.9 Pasta and rice, cooked Macaroni 1 cup 2.5 Rice, brown 1 cup 3.5 Rice, white 1 cup 0.6 Spaghetti (regular) 1 cup 2.5 Nuts Almonds 1/2 cup 8.7 Peanuts 1/2 cup 7.9 Chart from ipnexus 2013. SEEK IMMEDIATE MEDICAL CARE IF: You develop abdominal (belly) pain. An oral temperature above _ 101 F__develops. Repeated vomiting occurs. Blood is being passed in stools (bright red or black tarry stools). You develop any bowel problems or changes which you have not had before. Extra Information: To learn how much fiber and other nutrients are in different foods, visit the [place] Department of Agriculture (USDA) National Nutrient Database at: http://www.nal.usda.gov/fnic/sylvia dcomp/search/ Created using data from the USDA National Nutrient Database for Standard Reference. Available at http://www.[employer].gov/fnic/sylvia dcomp/search/. Information adapted from: [facility] Patient Information 2010 [employer]. ipnexus 2013 http://www.Hubbub/contents /xbykjnblbgty-aexyxgn-hvlvng-the -basics 09/16/2023 14:59:47 Colon Polyps Colon Polyps Colon polyps are tissue growths inside the colon, which is part of the large intestine. They are one of the types of polyps that can grow in the body. A polyp may be a round bump or a mushroom-shaped growth. You could have one polyp or more than one. Most colon polyps are noncancerous (benign). However, some colon polyps can become cancerous over time. Finding and removing the polyps early can help prevent this. What are the causes? The exact cause of colon polyps is not known. What increases the risk? The following factors may make you more likely to develop this condition: Having a family history of colorectal cancer or colon polyps. Being older than 45 years of age. Being younger than 45 years of age and having a significant family history of colorectal cancer or colon polyps or a genetic condition that puts you at higher risk of getting colon polyps. Having inflammatory bowel disease, such as ulcerative colitis or Crohn's disease. Having certain conditions passed from parent to child (hereditary conditions), such as: ?Familial adenomatous polyposis (FAP). ?Graham syndrome. ?Turcot syndrome. ?Peutz Jeghers syndrome. ?MUTYH-associated polyposis (MAP). Being overweight. Certain lifestyle factors. These include smoking cigarettes, drinking too much alcohol, not getting enough exercise, and eating a diet that is high in fat and red meat and low in fiber. Having had childhood cancer that was treated with radiation of the abdomen. What are the signs or symptoms? Many times, there are no symptoms. If you have symptoms, they may include: Blood coming from the rectum during a bowel movement. Blood in the stool (feces). The blood may be bright red or very dark in color. Pain in the abdomen. A change in bowel habits, such as constipation or diarrhea. How is this diagnosed? This condition is diagnosed with a colonoscopy. This is a procedure in which a lighted, flexible scope is inserted into the opening between the buttocks (anus) and then passed into the colon to examine the area. Polyps are sometimes found when a colonoscopy is done as part of routine cancer screening tests. How is this treated? This condition is treated by removing any polyps that are found. Most polyps can be removed during a colonoscopy. Those polyps will then be tested for cancer. Additional treatment may be needed depending on the results of testing. Follow these instructions at home: Eating and drinking Eat foods that are high in fiber, such as fruits, vegetables, and whole grains. Eat foods that are high in calcium and vitamin D, such as milk, cheese, yogurt, eggs, liver, fish, and broccoli. Limit foods that are high in fat, such as fried foods and desserts. Limit the amount of red meat, precooked or cured meat, or other processed meat that you eat, such as hot dogs, sausages, tolliver, or meat loaves. Limit sugary drinks. Lifestyle Maintain a healthy weight, or lose weight if recommended by your health care provider. Exercise every day or as told by your health care provider. Do not use any products that contain nicotine or tobacco, such as cigarettes, e-cigarettes, and chewing tobacco. If you need help quitting, ask your health care provider. Do not drink alcohol if: ?Your health care provider tells you not to drink. ?You are , may be , or are planning to become . If you drink alcohol: ?Limit how much you use to: ?0 1 drink a day for women. ?0 2 drinks a day for men. ?Know how much alcohol is in your drink. In the [place] one drink equals one 12 oz bottle of beer (355 mL), one 5 oz glass of wine (148 mL), or one 1 oz glass of hard liquor (44 mL). General instructions Take wutd-abt-pnwmqcf and prescription medicines only as told by your health care provider. Keep all follow-up visits. This is important. This includes having regularly scheduled colonoscopies. Talk to your health care provider about when you need a colonoscopy. Contact a health care provider if: You have new or worsening bleeding during a bowel movement. You have new or increased blood in your stool. You have a change in bowel habits. You lose weight for no known reason. Summary Colon polyps are tissue growths inside the colon, which is part of the large intestine. They are one type of polyp that can grow in the body. Most colon polyps are noncancerous (benign), but some can become cancerous over time. This condition is diagnosed with a colonoscopy. This condition is treated by removing any polyps that are found. Most polyps can be removed during a colonoscopy. This information is not intended to replace advice given to you by your health care provider. Make sure you discuss any questions you have with your health care provider. Document Revised: 10/05/2020 Document Reviewed: 10/05/2020 Say2me Patient Education 2022 Score The Board. Follow Up Care 02/28/2023 13:25:17 With:Davion Olivares Address: [address] [place] [address], [address] [address]- [phone] Business (1) When: Unknown Comments:office will call for follow up [facility] 09-16-2023 Evaluation + Plan note Extrac pepito from: Title:ANES Post General Author:Danny Anesthphyllis iology ()Obie Date:09/16/23 Plan Transfer/Discharge: Patient exhibiting no signs of N/V. Hydration status is adequate. Extracted from: Title:Danny Basic PRE Author:Danny Condon siology ()Obie Date:09/16/23 Plan [place] [employer] Anesthesiologists (ASA) physical status classification: Class III. Anesthetic Preoperative Plan: Anesthesia General. [facility]11-02-2023 Instructions* Patient Instructions* JasperGrayson de souza Jr., DO - 05/02/2023 9:49 AM EDT Assessment/Plan: Diagnoses and all orders for this visit: Bruxism (teeth grinding) The patient has findings consistent with temporomandibular joint dysfunction. I have recommended avoidance of gum chewing, softer diet for a week, ibuprofen 800mg three times daily with meals to avoid stomach upset for one week, decrease stress, monitor and cut back on caffeine as it causes night time temporalis muscle spasm resulting in jaw clenching and loading of the jaw joint, and a bite guard at night (football mouthguard that you boil and bite into to fit if you have teeth and not dentures). Acute suppurative otitis media of left ear without spontaneous rupture of tympanic membrane, recurrence not specified - Ambulatory referral to ENT Resolved. ROSETTE on CPAP Hearing loss, unspecified hearing loss type, unspecified laterality - Ambulatory referral to Audiology; Future Mild to moderate snhl bilaterally. Normal tymps. Follow up in 1 year for repeat hearing testing. documented in this [id number] History of Present illness Narrative* Mary Sue AuD - 05/02/2023 9:19 AM EDT Images from the original note were not included. [facility] [address] [place] [address] Name: Mary Jane Rios : 1945 Date: 05/02/23 History & Purpose of Evaluation: Ms. Rios was seen today for audiologic evaluation at the kind request of Dr. Hutchinson. She reports having hx of otitis media. Patient states she has had left ear infections for most of her life, and she was treated for ear infection with Augmentin in October. She reports 3 weeks ago, she woke up with extreme pain and was treated again for bilateral ear infection. She returned to [facility] and was told that herear was still infected. She reports her last hearing test several years ago in [place]. 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 She reports her left hearing is worse than her right. Please see below for other pertinent case history information as reported by Ms. Rios. Otologic Symptoms R L Noise Exposure Y N Medical Y N Hearing Loss [x] [x] Occupational [x] [] Hypertension [] [x] Tinnitus-intermittent [x] [x] Recreational [] [x] Diabetes [] [x] Otalgia [] [] [] [x] Hypercholesterolemia [x] [] Otorrhea [] [] Heart Disease [] [x] Aural Fullness [] [] Family History [x] [] Stroke [] [x] Meniere s Disease [] [] brother Cancer-mole [x] [] Y N Sp./Lang. Skills Ear Surgery R L Vertigo [] [x] Appropriate [x] [] PE Tubes [] [] Dizziness [x] [] In Therapy [] [x] Mastoidectomy [] [] Imbalance [x] [] Social Acoustic Neuroma [] [] Vestibular Rehab [] [x] Depression [x] [] Tympanoplasty [] [] Other: TMJ Results: Otoscopy: Performed by Dr. Hutchinson prior to testing. [employer] Conduction Audiometry: Right: Normal at 250Hz sloping to moderate sensorineural hearing loss. Left: Normal/borderline normal through 2kHz sloping to moderate sensorineural hearing loss. Speech Audiometry: Speech recognition threshold is in good agreement with puretone thresholds, bilaterally. Right: Word recognition is excellent (96%) when assessed at a normal conversational loudness level. Left: Word recognition is excellent (100%) when assessed at a normal conversational loudness level. Immittance Audiometry: Tympanometry revealed normal tympanic membrane mobility and middle ear pressure, Type A, bilaterally. Distortion Product Otoacoustic Emissions (DPOAE; 1500-6k Hz): Did not assess. Impression: Today's results reveal significant mild to moderate sensorineural hearing loss, right slightly poorer than left. Ms. Paezs hearing loss is expected to interfere with speech understanding in background noise. Middle ear testing is consistent with a normal middle ear system, bilaterally. Ms. Rios song hearing aid candidate, pending medical clearance, however she expressed she is not interested in hearing aids at this time and will wait a year. Encouraged her to check with her insurance about possible hearing aid benefits if she is interested. Ms. Rios was encouraged to monitor her hearing. Recommendations: Follow up with Dr. Hutchinson. Further testing at Dr. Hutchinson's discretion and patient to return for re-evaluation at Dr. Hutchinson's discretion. Otologic clearance at Dr. Hutchinson's discretion. Re-evaluate in one year, or sooner, to monitor hearing and r/o progressive hearing loss. Use of hearing protection is recommended. Ms. Rios to pursue hearing aids at her discretion. The above was explained to the patient and/or their guardian and they expressed understanding. Electronically Signed by: Oswaldo Blake, [facility] 05/02/23 9:19 AM documented in this [id number] History of Present illness Narrative* Grayson Hutchinson Jr., DO - 05/02/2023 8:57 AM EDT Images from the original note were not included. Subjective Patient ID: Mary Jane Rios is a 77 y.o. female. [employer], referral from [facility] for otitis media. Patient states she has had left ear infections for most of her life. She was treated for ear infection with Augmentin in October. 3 weeks ago, woke up with extreme pain and was treated again for b/l ear infection. She returned to [facility] and was told thather ear was still infected. Last hearing test several years ago in [place]. 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 Saw [facility] in 2019. History of bite guard. Last bite guard was a couple weeks ago. Night time bruxism. 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 The following portions of the patient's history were reviewed and updated as appropriate: allergies, current medications, past family history, past medical history, past social history, past surgicalhistory, and problem list. Review of Systems Constitutional: Negative for chills and diaphoresis. HENT: Positive for ear discharge and hearing loss. Negative for ear pain. Eyes: Negative for discharge and redness. Respiratory: Negative for apnea and cough. Cardiovascular: Negative for chest pain and palpitations. Musculoskeletal: Negative for neck pain and neck stiffness. Skin: Negative for color change and pallor. Allergic/Immunologic: Negative for immunocompromised state. Neurological: Negative for facial asymmetry and numbness. Hematological: Does not bruise/bleed easily. Psychiatric/Behavioral: Negative for agitation and confusion. Objective Physical Exam Vitals and nursing note reviewed. Constitutional: Appearance: Normal appearance. She is well-developed. Comments: The patient is well-developed and well-nourished without obvious deformity. HENT: Head: Normocephalic and atraumatic. Right Ear: Tympanic membrane, ear canal and external ear normal. Left Ear: Tympanic membrane, ear canal and external ear normal. Nose: Nose normal. Mouth/Throat: Mouth: Mucous membranes are moist. Eyes: General: Lids are normal. Conjunctiva/sclera: Conjunctivae normal. Left eye: No chemosis. Pupils: Pupils are equal, round, and reactive to light. Neck: Thyroid: No thyromegaly. Trachea: No tracheal deviation. Cardiovascular: Rate and Rhythm: Normal rate and regular rhythm. Heart sounds: Normal heart sounds. Pulmonary: Effort: Pulmonary effort is normal. Breath sounds: Normal breath sounds. No stridor. Musculoskeletal: Cervical back: Normal range of motion and neck supple. Lymphadenopathy: Head: Right side of head: No submental, submandibular, preauricular, posterior auricular or occipital adenopathy. Left side of head: No submental, submandibular, preauricular, posterior auricular or occipital adenopathy. Cervical: No cervical adenopathy. Right cervical: No superficial cervical adenopathy. Left cervical: No superficial or deep cervical adenopathy. Skin: General: Skin is warm and dry. Neurological: Mental Status: She is alert and oriented to person, place, and time. Coordination: Coordination normal. Gait: Gait normal. Comments: III, IV, : EOM normal V: 1,2,3: normal sensation VII: Normal strength in all divisions. IX, X: Normal voice, palatal elevation and sensation XI: Shoulder strength normal XII: Tongue mobility normal Psychiatric: Mood and Affect: Mood is not anxious. Affect is not angry. Speech: Speech is not delayed or slurred. Behavior: Behavior normal. Behavior is not agitated or aggressive. Behavior is cooperative. Assessment/Plan: Diagnoses and all orders for this visit: Bruxism (teeth grinding) The patient has findings consistent with temporomandibular joint dysfunction. I have recommended avoidance of gum chewing, softer diet for a week, ibuprofen 800mg three times daily with meals to avoid stomach upset for one week, decrease stress, monitor and cut back on caffeine as it causes night time temporalis muscle spasm resulting in jaw clenching and loading of the jaw joint, and a bite guard at night (football mouthguard that you boil and bite into to fit if you have teeth and not dentures). I spent at least 48 minutes prepping the chart, charting, interviewing and interacting with patient, and post visit charting. Acute suppurative otitis media of left ear without spontaneous rupture of tympanic membrane, recurrence not specified - Ambulatory referral to ENT Resolved. ROSETTE on CPAP Hearing loss, unspecified hearing loss type, unspecified laterality - Ambulatory referral to Audiology; Future Mild to moderate snhl bilaterally. Normal tymps. Follow up in 1 year for repeat hearing testing. documented in this [id number] NoteChief Complaint: lbp and radicular pain right lower extremity HPI When did this problem begin: Long time Timing/frequency of occurrence: Constant Pain description: dull ache Pain severity: 6 Radicular pain: right l5 dermatome Numbness/tingling: right foot Pain is getting: gradually worsening Weakness: No What improves symptoms: Rest What makes symptoms worse: Activity Gait disturbance: No Fine hand dexterity problem: No Previous treatment for this problem: PT, and epidural, and piriformis injections ROS Constitutional: Fatigue: No Weight loss: No Fever: No Chills: No No past surgical history on file. No past medical history on file. No past surgical history on file. Allergies Allergen Reactions Triamterene Rash Morphine GI intolerance Other reaction(s): Other (See Comments) Other reaction(s): Hallucinating, vomiting Other reaction(s): Hallucinating, vomiting Wheat Bran Itching Wheat gluten Escitalopram Itching and Rash Other reaction(s): Redness of Skin Other reaction(s): Redness of Skin Gluten Protein GI intolerance, Itching and Nausea And Vomiting Hydrochlorothiazide Rash Ibuprofen GI intolerance and Rash Latex Itching and Rash Added based on information entered during case entry, please review and add reactions, type, and severity as needed Added based on information entered during case entry, please review and add reactions, type, and severity as needed Sulfamethoxazole-Trimethoprim Rash No current outpatient medications on file. Social History Socioeconomic History Marital status: Spouse name: Not on file Number of children: Not on file Years of education: Not on file Highest education level: Not on file Occupational History Not on file Tobacco Use Smoking status: Not on file Smokeless tobacco: Not on file Substance and Sexual Activity Alcohol use: Not on file Drug use: Not on file Sexual activity: Not on file Other Topics Concern Not on file Social History Narrative Not on file Social Determinants of Health Financial Resource Strain: Not on file Food Insecurity: Not on file Transportation Needs: Not on file Physical Activity: Not on file Stress: Not on file Social Connections: Not on file Intimate Partner Violence: Not on file Housing Stability: Not on file No family history on file. Physical Exam There were no vitals taken for this visit. Musculoskeletal Ortho spine musculoskeletal examination: Alignment spine: normal Tenderness: right lumbar paraspinal Range of motion lumbar spine: limited Neurological Biceps strength: 5 Wrist extension: 5 Triceps strength: 5 Finger flexor: 5 Finger abduction strength: 5 Flexion at the hip strength: 5 Quadriceps strength: 5 Tibialis anterior strength: 5 Plantar flexion strength: 5 Extensor Hallicis Longus strength: 5 Sensory Exam: intact Straight leg raising: Negative DTR/ Pathologic reflexes Biceps reflex- 2 Brachioradialis reflex- 2 Triceps reflex- 2 Patellar reflex- 2 Achilles reflex- 2 Gait and station Gait: using walker for mobilization Images: I, Dr. Xu Martinez, personally reviewed the images and my personal interpretation are: x ray degenerative lumbar scoliosis, MRI , CT, X ray, osteoporosis, multilevel lumbar disc degeneration, scoliosis , mild spinal stenosis Assessment and Plan 77 years presents with lbp and radicular pain right lower extremity Explained the clinical and radiological findings with the patient and discussed management options. Recommended no current indications for surgical management Hydrotherapy [facility]-28-2023 NoteChief Complaint: lbp and radicular pain right lower extremity HPI When did this problem begin: Long time Timing/frequency of occurrence: Constant Pain description: dull ache Pain severity: 10 Radicular pain: right l5 dermatome Numbness/tingling: No Pain is getting: gradually worsening Weakness: No What improves symptoms: Rest What makes symptoms worse: Activity Gait disturbance: No Fine hand dexterity problem: No Previous treatment for this problem: PT, and piriformis injection did not give relief ROS Constitutional: Fatigue: No Weight loss: No Fever: No Chills: No No past surgical history on file. No past medical history on file. No past surgical history on file. Allergies Allergen Reactions Triamterene Rash Morphine GI intolerance Other reaction(s): Other (See Comments) Other reaction(s): Hallucinating, vomiting Other reaction(s): Hallucinating, vomiting Wheat Bran Itching Wheat gluten Escitalopram Itching and Rash Other reaction(s): Redness of Skin Other reaction(s): Redness of Skin Gluten Protein GI intolerance, Itching and Nausea And Vomiting Hydrochlorothiazide Rash Ibuprofen GI intolerance and Rash Latex Itching and Rash Added based on information entered during case entry, please review and add reactions, type, and severity as needed Added based on information entered during case entry, please review and add reactions, type, and severity as needed Sulfamethoxazole-Trimethoprim Rash No current outpatient medications on file. Social History Socioeconomic History Marital status: Spouse name: Not on file Number of children: Not on file Years of education: Not on file Highest education level: Not on file Occupational History Not on file Tobacco Use Smoking status: Not on file Smokeless tobacco: Not on file Substance and Sexual Activity Alcohol use: Not on file Drug use: Not on file Sexual activity: Not on file Other Topics Concern Not on file Social History Narrative Not on file Social Determinants of Health Financial Resource Strain: Not on file Food Insecurity: Not on file Transportation Needs: Not on file Physical Activity: Not on file Stress: Not on file Social Connections: Not on file Intimate Partner Violence: Not on file Housing Stability: Not on file No family history on file. Physical Exam There were no vitals taken for this visit. Musculoskeletal Ortho spine musculoskeletal examination: Alignment spine: normal Tenderness: right lumbar paraspinal Range of motion Cervical spine: normal Range of motion lumbar spine: limited Neurological Biceps strength: 5 Wrist extension: 5 Triceps strength: 5 Finger flexor: 5 Finger abduction strength: 5 Flexion at the hip strength: 5 Quadriceps strength: 5 Tibialis anterior strength: 5 Plantar flexion strength: 5 Extensor Hallicis Longus strength: 5 Sensory Exam: intact Straight leg raising: Negative DTR/ Pathologic reflexes Biceps reflex- 2 Brachioradialis reflex- 2 Triceps reflex- 2 Patellar reflex- 2 Achilles reflex- 2 Babinski- negative Gan reflex: Absent Gait and station Gait: using walker for mobilization Images: I, Dr. Xu Martinez, personally reviewed the images and my personal interpretation are: x ray degenerative lumbar scoliosis, MRI L5 right pars fracture and foramina stenosis Assessment and Plan 77 years presents with lbp and radicular pain right lower extremity PT, and piriformis injection did not give relief Explained the clinical and radiological findings with the patient and discussed management options. Recommended CT scan to assess the pars fracture and for preoperative surgical planning [place] [facility] [place]* Encounter Date Diagnosis Assessment Notes Treatment Notes Treatment Clinical Notes Mar, Piriformis syndrome of right side (ICD-10 - G57.01) [facility] Other 09-14-2023 Evaluation note* Encounter Date Diagnosis Assessment Notes Treatment Notes Treatment Clinical Notes Mar, Other spondylosis with radiculopathy, lumbar region (ICD-10 - M47.26) Mar, Piriformis syndrome of right side (ICD-10 - G57.01) Patients primary complaint today is returning pain radiating into the lateral aspect of her right lower extremity, extending into her foot. Given neurosurgery recommendation as well as exam findings, I agree the patient may benefit from a right piriformis muscle injection which we will proceed with. Risks and benefits of procedure explained to patient; patient verbalizes understanding. In the meantime, we will switch her from Oxycodone-Acetaminop hen 5-325 mg to Acetaminophen-Codien e 30-300 mg twice daily as needed for severe pain. An OARRS report was processed and reviewed and shows no violations, as well as an opioid risk assessment being completed without concerns. She denies any significant opioid related side effects and appears to be compliant with this medication. The patient was counseled and educated regarding the risks and benefits of long-term opioid use. She understands the associated risks with this medication and agrees that it provides reasonable benefit in regard to her pain control and level of function. Anatomy of spine discussed in detail with patient in regard to patients condition. Mar, Chronic pain (ICD-10 - G89.29) Mar, Other Above note writ ten by John Merlos LPN, Digital Media Specialist. Edited and approved by Dr. Yanelis Garcia MD. 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 This patient has no nerve root impingement adequate canal adequate foramen. Clinically she has an L5 radiculopathy on the right she has a negative Garrett's sign but palpable posterior hip tenderness that is significant. I suspect that she is having sciatic nerve impingement at the posterior hip she states she has a bad hip it does not need to be replaced but there are areas of [id number]. My suspicion is that this is causing some nerve irritation I have no indication for doing back surgery I think injections in the spine will be of no benefit she is already had some and they have not helped. I think what needs to be injected or treated is the area around the hip. Mar, Right hip pain (ICD-10 - M25.551) [facility] Other 08-28-2023 Evaluation note* Encounter Date Diagnosis Assessment Notes Treatment Notes Treatment Clinical Notes Jan, Other spondylosis with radiculopathy, lumbar region (ICD-10 - M47.26) [facility] Other 08-17-2023 Evaluation note* Encounter Date Diagnosis Assessment Notes Treatment Notes Treatment Clinical Notes Jan, Other spondylosis with radiculopathy, lumbar region (ICD-10 - M47.26) [facility] Other 08-11-2023 Hospital Discharge instructions* Discharge Instructions* Keyshawn Suresh PA-C - 02/08/2023 4:26 PM EDT Follow-up with primary care doctor 7 to 10 days for reevaluation. Continue to wear corrective shoe as directed to prevent future sciatica low back pain events. Take Hindman as directed. As we discussed, break a tab of Hindman in half and take every 6 hours as needed for pain. Promptly return to emergency department for new, changing, worsening of symptoms or other concerns. * Attachments The following attachments cannot be sent through Care Everywhere. * Back Pain (Belgian) * Sciatica (Belgian) [facility]* Encounter Date Diagnosis Assessment Notes Treatment Notes Treatment Clinical Notes Jan, Acute non-recurrent maxillary sinusitis (ICD-10 - J01.00) No testing performed today in office. Discussed diagnosis with patient. Will today for bacterial sinusitis based on physical exam and duration of symptoms. Take antibiotic as prescribed, complete entire course of therapy even if symptoms resolve. Reviewed allergies and recent antibiotic use with patient. Advised patient to take rx of prednisone as directed, OTC Mucinex. Supportive care as directed, push fluids and rest, Tylenol as directed for discomfort/fever, warm moist compress over sinuses several times a day, cool mist humidification, nasal saline spray as directed. Symptoms should improve in the next 3 days, if symptoms persist follow up with PCP. Immediate eval for warning s/sx as discussed. Patient verbalizes understanding and is agreeable to treatment plan Jan, Thrush (ICD-10 - B37.0) Diagnosis with patient today in office. Will send in Rx of nystatin to use as directed. Advised to start medication after completion of antibiotic therapy. Follow above of treatment plan recommendations. [facility] Other 05-28-2023 History of Present illness Narrative* Zunilda Bullock RN - 11/25/2022 10:47 AM EDT Ticket to ride completed. The following information was reported off: Name Allergies Orientation Level Destination Safety Issues Code Status Oxygen Requirements Special needs including mobility, language, communication [facility] Work Phone: [phone] Hospital Discharge instructions Patient Education 08/28/2022 13:26:40 Gastroesophageal Reflux Disease, Adult Gastroesophageal Reflux Disease, Adult Gastroesophageal reflux (YOKO) happens when acid from the stomach flows up into the tube that connects the mouth and the stomach (esophagus). Normally, food travels down the esophagus and stays in thestomach to be digested. However, when a person has YOKO, food and stomach acid sometimes move back up into the esophagus. If this becomes a more serious problem, the person may be diagnosed with a disease called gastroesophageal reflux disease (GERD). GERD occurs when the reflux: Happens often. Causes frequent or severe symptoms. Causes problems such as damage to the esophagus. When stomach acid comes in contact with the esophagus, the acid may cause soreness (inflammation) in the esophagus. Over time, GERD may create small holes (ulcers) in the lining of the esophagus. What are the causes? This condition is caused by a problem with the muscle between the esophagus and the stomach (lower esophageal sphincter, or LES). Normally, the LES muscle closes after food passes through the esophagus to the stomach. When the LES is weakened or abnormal, it does not close properly, and that allowsfood and stomach acid to go back up into the esophagus. The LES can be weakened by certain dietary substances, medicines, and medical conditions, including: Tobacco use. . Having a hiatal hernia. Alcohol use. Certain foods and beverages, such as coffee, chocolate, onions, and peppermint. What increases the risk? You are more likely to develop this condition if you: Have an increased body weight. Have a connective tissue disorder. Use NSAID medicines. What are the signs or symptoms? Symptoms of this condition include: Heartburn. Difficult or painful swallowing. The feeling of having a lump in the throat. A bitter taste in the mouth. Bad breath. Having a large amount of saliva. Having an upset or bloated stomach. Belching. Chest pain. Different conditions can cause chest pain. Make sure you see your health care provider if you experience chest pain. Shortness of breath or wheezing. Ongoing (chronic) cough or a night-time cough. Wearing away of tooth enamel. Weight loss. How is this diagnosed? Your health care provider will take a medical history and perform a physical exam. To determine if you have mild or severe GERD, your health care provider may also monitor how you respond to treatment. You may also have tests, including: A test to examine your stomach and esophagus with a small camera (endoscopy). A test that measures the acidity level in your esophagus. A test that measures how much pressure is on your esophagus. A barium swallow or modified barium swallow test to show the shape, size, and functioning of your esophagus. How is this treated? The goal of treatment is to help relieve your symptoms and to prevent complications. Treatment for this condition may vary depending on how severe your symptoms are. Your health care provider may recommend: Changes to your diet. Medicine. Surgery. Follow these instructions at home: Eating and drinking Follow a diet as recommended by your health care provider. This may involve avoiding foods and drinks such as: ?Coffee and tea (with or without caffeine). ?Drinks that contain alcohol. ?Energy drinks and sports drinks. ?Carbonated drinks or sodas. ?Chocolate and cocoa. ?Peppermint and mint flavorings. ?Garlic and onions. ?Horseradish. ?Spicy and acidic foods, including peppers, chili powder, neal powder, vinegar, hot sauces, and barbecue sauce. ?Chaves fruit juices and citrus fruits, such as oranges, kamilah, and limes. ?Tomato-based foods, such as red sauce, chili, salsa, and pizza with red sauce. ?Fried and fatty foods, such as donuts, filipino fries, potato chips, and high-fat dressings. ?High-fat meats, such as hot dogs and fatty cuts of red and white meats, such as rib eye steak, sausage, ham, and tolliver. ?High-fat dairy items, such as whole milk, butter, and cream cheese. Eat small, frequent meals instead of large meals. Avoid drinking large amounts of liquid with your meals. Avoid eating meals during the 2 3 hours before bedtime. Avoid lying down right after you eat. Do not exercise right after you eat. Lifestyle Do not use any products that contain nicotine or tobacco, such as cigarettes, e- cigarettes, and chewing tobacco. If you need help quitting, ask your health care provider. Try to reduce your stress by using methods such as yoga or meditation. If you need help reducing stress, ask your health care provider. If you are overweight, reduce your weight to an amount that is healthy for you. Ask your health care provider for guidance about a safe weight loss goal. General instructions Pay attention to any changes in your symptoms. Take wtvd-bla-mjaqqbw and prescription medicines only as told by your health care provider. Do not take aspirin, ibuprofen, or other NSAIDs unless your health care provider told you to do so. Wear loose-fitting clothing. Do not wear anything tight around your waist that causes pressure on your abdomen. Raise (elevate) the head of your bed about 6 inches (15 cm). Avoid bending over if this makes your symptoms worse. Keep all follow-up visits as told by your health care provider. This is important. Contact a health care provider if: You have: ?New symptoms. ?Unexplained weight loss. ?Difficulty swallowing or it hurts to swallow. ?Wheezing or a persistent cough. ?A hoarse voice. Your symptoms do not improve with treatment. Get help right away if you: Have pain in your arms, neck, jaw, teeth, or back. Feel sweaty, dizzy, or light-headed. Have chest pain or shortness of breath. Vomit and your vomit looks like blood or coffee grounds. Faint. Have stool that is bloody or black. Cannot swallow, drink, or eat. Summary Gastroesophageal reflux happens when acid from the stomach flows up into the esophagus. GERD is a disease in which the reflux happens often, causes frequent or severe symptoms, or causes problems such as damage to the esophagus. Treatment for this condition may vary depending on how severe your symptoms are. Your health care provider may recommend diet and lifestyle changes, medicine, or surgery. Contact a health care provider if you have new or worsening symptoms. Take nkqm-rql-jvhlexg and prescription medicines only as told by your health care provider. Do not take aspirin, ibuprofen, or other NSAIDs unless your health care provider told you to do so. Keep all follow-up visits as told by your health care provider. This is important. This information is not intended to replace advice given to you by your health care provider. Make sure you discuss any questions you have with your health care provider. Document Released: 03/27/2006 Document Revised: 12/24/2018 Document Reviewed: 12/24/2018 Say2me Patient Education 2020 Score The Board. Follow Up Care 08/15/2022 13:39:48 With:KHADAR STEINER, EMIL Ferrari, [facility] Address: [address] [place] [address] When:6 months Comments:Patient requests to be evaluated by Dr. Hernandez next visit. [facility] [id number] Evaluation note* Encounter Date Diagnosis Assessment Notes Treatment Notes Treatment Clinical Notes Jul, Sacroiliitis (ICD-10 - M46.1) Patient is voicing minimal complaints of pain at this time. She attributes this to a recent bilateral sacral lateral branch radiofrequency ablations. We will continue to monitor her symptoms in this region. Anatomy of spine discussed in detail with patient in regards to patients condition. Overall, patient believes their pain is reasonably well controlled and she is in agreement with our treatment plan. We will follow up with her as needed. Jul, Other spondylosis with radiculopathy, lumbar region (ICD-10 - M47.26) Jul, Chronic pain (ICD-10 - G89.29) Jul, Other low back pain (ICD-10 - M54.59) Jul, Other Above note writ ten by John Merlos LPN, Digital Media Specialist. Edited and approved by Dr. Yanelis Garcia MD. [employer] Other 01-26-2023 Evaluation + Plan noteExtracted from: Title:ANES Pre-operative Note Author:Misha STEINER, R miryam S. Date:07/26/22 Plan [place] [employer]esthesiologists (ASA) physical status classification: Class III. Anesthetic Preoperative Plan: Anesthesia General. [facility]01-26-2023 Hospital Discharge instructions Patient Education 07/26/2022 08:42:33 Upper Endoscopy, Adult, Care After Upper Endoscopy, Adult, Care After This sheet gives you information about how to care for yourself after your procedure. Your health care provider may also give you more specific instructions. If you have problems or questions, contact your health care provider. What can I expect after the procedure? After the procedure, it is common to have: A sore throat. Mild stomach pain or discomfort. Bloating. Nausea. Follow these instructions at home: Follow instructions from your health care provider about what to eat or drink after your procedure. Return to your normal activities as told by your health care provider. Ask your health care provider what activities are safe for you. Take kprn-lxy-wwfpfvd and prescription medicines only as told by your health care provider. Do not drive for 24 hours if you were given a sedative during your procedure. Keep all follow-up visits as told by your health care provider. This is important. Contact a health care provider if you have: A sore throat that lasts longer than one day. Trouble swallowing. Get help right away if: You vomit blood or your vomit looks like coffee grounds. You have: ?A fever. ?Bloody, black, or tarry stools. ?A severe sore throat or you cannot swallow. ?Difficulty breathing. ?Severe pain in your chest or abdomen. Summary After the procedure, it is common to have a sore throat, mild stomach discomfort, bloating, and nausea. Do not drive for 24 hours if you were given a sedative during the procedure. Follow instructions from your health care provider about what to eat or drink after your procedure. Return to your normal activities as told by your health care provider. This information is not intended to replace advice given to you by your health care provider. Make sure you discuss any questions you have with your health care provider. Document Released: 12/16/2012 Document Revised: 12/09/2018 Document Reviewed: 11/17/2018 Say2me Patient Education 2020 Score The Board. Follow Up Care 07/10/2022 14:59:17 With:Vonda HERNANDEZ Address: [address] [place] [address]. [address] [place] [address] Business (1) When: Unknown Comments:Office will call date and time of follow-up appt. [facility]01-17-2023 Procedure [facility]01-12-2023 Hospital Discharge instructions* Discharge Instructions* Alma Mao DO - 07/12/2022 9:31 AM EST Go to your scheduled appt with your GI doctor for your scope. * Attachments The following attachments cannot be sent through Care Everywhere. * Sore Throat (Belgian) [facility] [employer] Work Phone: [phone]) 521-575401-10-2023 Hospital Discharge instructions Patient Education 07/10/2022 14:24:54 Gastroesophageal Reflux Disease, Adult Gastroesophageal Reflux Disease, Adult Gastroesophageal reflux (YOKO) happens when acid from the stomach flows up into the tube that connects the mouth and the stomach (esophagus). Normally, food travels down the esophagus and stays in thestomach to be digested. However, when a person has YOKO, food and stomach acid sometimes move back up into the esophagus. If this becomes a more serious problem, the person may be diagnosed with a disease called gastroesophageal reflux disease (GERD). GERD occurs when the reflux: Happens often. Causes frequent or severe symptoms. Causes problems such as damage to the esophagus. When stomach acid comes in contact with the esophagus, the acid may cause soreness (inflammation) in the esophagus. Over time, GERD may create small holes (ulcers) in the lining of the esophagus. What are the causes? This condition is caused by a problem with the muscle between the esophagus and the stomach (lower esophageal sphincter, or LES). Normally, the LES muscle closes after food passes through the esophagus to the stomach. When the LES is weakened or abnormal, it does not close properly, and that allowsfood and stomach acid to go back up into the esophagus. The LES can be weakened by certain dietary substances, medicines, and medical conditions, including: Tobacco use. . Having a hiatal hernia. Alcohol use. Certain foods and beverages, such as coffee, chocolate, onions, and peppermint. What increases the risk? You are more likely to develop this condition if you: Have an increased body weight. Have a connective tissue disorder. Use NSAID medicines. What are the signs or symptoms? Symptoms of this condition include: Heartburn. Difficult or painful swallowing. The feeling of having a lump in the throat. A bitter taste in the mouth. Bad breath. Having a large amount of saliva. Having an upset or bloated stomach. Belching. Chest pain. Different conditions can cause chest pain. Make sure you see your health care provider if you experience chest pain. Shortness of breath or wheezing. Ongoing (chronic) cough or a night-time cough. Wearing away of tooth enamel. Weight loss. How is this diagnosed? Your health care provider will take a medical history and perform a physical exam. To determine if you have mild or severe GERD, your health care provider may also monitor how you respond to treatment. You may also have tests, including: A test to examine your stomach and esophagus with a small camera (endoscopy). A test that measures the acidity level in your esophagus. A test that measures how much pressure is on your esophagus. A barium swallow or modified barium swallow test to show the shape, size, and functioning of your esophagus. How is this treated? The goal of treatment is to help relieve your symptoms and to prevent complications. Treatment for this condition may vary depending on how severe your symptoms are. Your health care provider may recommend: Changes to your diet. Medicine. Surgery. Follow these instructions at home: Eating and drinking Follow a diet as recommended by your health care provider. This may involve avoiding foods and drinks such as: ?Coffee and tea (with or without caffeine). ?Drinks that contain alcohol. ?Energy drinks and sports drinks. ?Carbonated drinks or sodas. ?Chocolate and cocoa. ?Peppermint and mint flavorings. ?Garlic and onions. ?Horseradish. ?Spicy and acidic foods, including peppers, chili powder, neal powder, vinegar, hot sauces, and barbecue sauce. ?Chaves fruit juices and citrus fruits, such as oranges, kamilah, and limes. ?Tomato-based foods, such as red sauce, chili, salsa, and pizza with red sauce. ?Fried and fatty foods, such as donuts, filipino fries, potato chips, and high-fat dressings. ?High-fat meats, such as hot dogs and fatty cuts of red and white meats, such as rib eye steak, sausage, ham, and tolliver. ?High-fat dairy items, such as whole milk, butter, and cream cheese. Eat small, frequent meals instead of large meals. Avoid drinking large amounts of liquid with your meals. Avoid eating meals during the 2 3 hours before bedtime. Avoid lying down right after you eat. Do not exercise right after you eat. Lifestyle Do not use any products that contain nicotine or tobacco, such as cigarettes, e- cigarettes, and chewing tobacco. If you need help quitting, ask your health care provider. Try to reduce your stress by using methods such as yoga or meditation. If you need help reducing stress, ask your health care provider. If you are overweight, reduce your weight to an amount that is healthy for you. Ask your health care provider for guidance about a safe weight loss goal. General instructions Pay attention to any changes in your symptoms. Take ehcr-yxn-dyjyllx and prescription medicines only as told by your health care provider. Do not take aspirin, ibuprofen, or other NSAIDs unless your health care provider told you to do so. Wear loose-fitting clothing. Do not wear anything tight around your waist that causes pressure on your abdomen. Raise (elevate) the head of your bed about 6 inches (15 cm). Avoid bending over if this makes your symptoms worse. Keep all follow-up visits as told by your health care provider. This is important. Contact a health care provider if: You have: ?New symptoms. ?Unexplained weight loss. ?Difficulty swallowing or it hurts to swallow. ?Wheezing or a persistent cough. ?A hoarse voice. Your symptoms do not improve with treatment. Get help right away if you: Have pain in your arms, neck, jaw, teeth, or back. Feel sweaty, dizzy, or light-headed. Have chest pain or shortness of breath. Vomit and your vomit looks like blood or coffee grounds. Faint. Have stool that is bloody or black. Cannot swallow, drink, or eat. Summary Gastroesophageal reflux happens when acid from the stomach flows up into the esophagus. GERD is a disease in which the reflux happens often, causes frequent or severe symptoms, or causes problems such as damage to the esophagus. Treatment for this condition may vary depending on how severe your symptoms are. Your health care provider may recommend diet and lifestyle changes, medicine, or surgery. Contact a health care provider if you have new or worsening symptoms. Take cpuk-wev-xhvujje and prescription medicines only as told by your health care provider. Do not take aspirin, ibuprofen, or other NSAIDs unless your health care provider told you to do so. Keep all follow-up visits as told by your health care provider. This is important. This information is not intended to replace advice given to you by your health care provider. Make sure you discuss any questions you have with your health care provider. Document Released: 03/27/2006 Document Revised: 12/24/2018 Document Reviewed: 12/24/2018 Say2me Patient Education 2020 Score The Board. Follow Up Care 06/26/2022 15:51:19 With:Donna Spencer CNP Address: When:1 to 2 weeks Comments:Following EGD. [facility] 12-14-2022 Evaluation note* Encounter Date Diagnosis Assessment Notes Treatment Notes Treatment Clinical Notes May, Sacroiliitis (ICD-10 - M46.1) Patients primary complaint today is returning low lumbar and gluteal pain, consistent with previous complaints of pain in the sacroiliac region. Based on previous positive results, as well as location of pain and exam findings, patient is a candidate for bilateral sacral lateral branch radiofrequency ablations which we will proceed with. Risks and benefits of procedure explained to patient; patient verbalizes understanding. Anatomy of spine discussed in detail with patient in regard to patients condition. May, Other spondylosis with radiculopathy, lumbar region (ICD-10 - M47.26) May, Chronic pain (ICD-10 - G89.29) May, Other low back pain (ICD-10 - M54.59) May, Other Above note writ ten by John Merlos LPN, Digital Media Specialist. Edited and approved by Dr. Yanelis Garcia MD. [employer] Other 11-02-2022 Evaluation note* Encounter Date Diagnosis Assessment Notes Treatment Notes Treatment Clinical Notes May, Sacroiliitis (ICD-10 - M46.1) May, Other spondylosis with radiculopathy, lumbar region (ICD-10 - M47.26) Patients primary complaint today is progressing low lumbar pain radiating into the posterior aspect of her left lower extremity, extending into her foot. She complains of numbness and tingling as well. Given her failure of recent conservative treatment, as well as progressing symptoms, I will order an MRI of her lumbar spine for further evaluation. We will follow up with the patient to discuss further treatment once we receive the results of her imaging. Anatomy of spine discussed in detail with patient in regards to patients condition. May, Other chronic pain (ICD-10 - G89.29) May, Other Above note writ ten by Rush Toro MA, Digital Media Specialist. Edited and approved by Dr. Yanelis Garcia MD. [employer] Other 10-10-2022 Evaluation note* Encounter Date Diagnosis Assessment Notes Treatment Notes Treatment Clinical Notes Mar, Other low back pain (ICD-10 - M54.59) Mar, Sacroiliitis (ICD-10 - M46.1) Patients primary complaint today continues to be low back and gluteal pain, most bothersome on the left side. Her symptoms appear consistent with the sacroiliac region upon exam. She recently experienced sustained relief with sacroiliac joint injections for one day. Based on location of pain and exam findings, patient is a candidate for sacral lateral branch block, which we will proceed with. Risks and benefits of procedure explained to patient; patient verbalizes understanding. It was further explained should this provide significant short term relief we will proceed with a subsequent radiofrequency ablation. Anatomy of spine discussed in detail with patient in regard to patients condition. Mar, Other chronic pain (ICD-10 - G89.29) Mar, Other Above note writ ten by John Merlos LPN, Digital Media Specialist. Edited and approved by Dr. Yanelis Garcia MD. [employer] Other 04-13-2022 History of Present illness Narrative* Zo Glynn, PT - 10/11/2021 9:00 AM EDT Images from the original note were not included. [facility] Outpatient Physical Therapy Daily Note Date: 10/11/2021 Patient Name: Mary Jane Rios : 1945 (75 y.o.) Referring Practitioner: Dr. Meyer Referral Date : 08/10/21 Diagnosis: Right RCR repair Treatment Diagnosis: Right RCR Onset Date: 07/28/21 PT Insurance Information: [facility] Total # of Visits Approved: 18 Per Physician Order Total # of Visits to Date: 17 No Show: 0 Canceled Appointment: 1 Plan of Care/Certification Expiration Date: 10/12/21 Pre-Treatment Pain: 08/10 Assessment Assessment: Patient has completed 17 treatment sessions consisting of exercise for ROM and strengthening following her right shoulder RCR. Subjective, she notes minimal overall pain rated 2-3/10 withactivity. AROM flexion 90 deg; abduction 80 deg; functionally able to touch top/base of head for hair care and behind back to pull up pants however remains limited with donning coat or bra. PROM WFL flex and abduction; IR full and ER 65 deg. Strength 3-3+/5. She has been educated on a home for ROM and strengthening. Based on progress, plan to discharge and allow patient to continue on an independent basis. 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 1: PROM flexion 150 deg and abduction 140 deg- MET FDC goal 2: PROM ER 50 deg and IR 60 deg (@ 90 deg )- MET oil heaterman goal 3: Functionally elevate right shoulder to reach behind head for self care/hair care-MET oil heaterman goal 4: Functionally reach behind back to don coat or bra- NOT MET FDC goal 5: Strength right shoulder/UE to carry gallon of milk- MET Post Treatment Pain: 2/10 Time In: 0900 Time Out : 0950 Timed Code Treatment Minutes: 45 Minutes Total Treatment Time: 50 Minutes ZO CHEN, PT Date: 10/11/2021 documented [facility] this [facility] Work Phone: [phone]) 261-676004-13-2022 Hospital course Narrative* Zo Chen, PT - 10/11/2021 9:00 AM EDT Images from the original note were not included. [facility]patient [facility] Therapy Discharge Summary Patient: Mary Jane Rios : 1945 Referring Practitioner: Dr. Meyer Diagnosis: Right RCR repair Date Treatment Initiated: 04/28/22 Date of Last Treatment: 10/11/21 PT Visit Information Onset Date: 07/28/21 PT Insurance Information: [facility] Total # of Visits Approved: 18 Total # of Visits to Date: 17 Plan of Care/Certification Expiration Date: 10/12/21 No Show: 0 Canceled Appointment: 1 Treatment Received: Patient Education/HEP, Therapeutic Exercise and Manual Therapy Assessment: Patient has completed 17 treatment sessions consisting of exercise for ROM and strengthening following her right shoulder RCR. Subjective, she notes minimal overall pain rated 2-3/10 withactivity. AROM flexion 90 deg; abduction 80 deg; functionally able to touch top/base of head for hair care and behind back to pull up pants however remains limited with donning coat or bra. PROM WFL flex and abduction; IR full and ER 65 deg. Strength 3-3+/5. She has been educated on a home for ROM and strengthening. Based on progress, plan to discharge and allow patient to continue on an independent basis. UEFS = 66/80 (improved from 58/80) Reason for Discharge: Goals Met Comments: Thank you for this referral ZO CHEN PT Date: 10/11/2021 documented in this [facility] Work Phone: [phone]) 938-786504-06-2022 History of Present illness Narrative* Zo Chen PT - 10/04/2021 11:15 AM EDT Images from the original note were not included. [facility] Outpatient Physical Therapy Daily Note Date: 10/04/2021 Patient Name: Mary Jane Rios : 1945 (75 y.o.) Referring Practitioner: Dr. Meyer Referral Date : 08/10/21 Diagnosis: Right RCR repair Treatment Diagnosis: Right RCR Onset Date: 07/28/21 PT Insurance Information: [facility] Total # of Visits Approved: 18 Per Physician Order Total # of Visits to Date: 15 No Show: 0 Canceled Appointment: 1 Plan of Care/Certification Expiration Date: 10/12/21 Pre-Treatment Pain: 10/08 Assessment Assessment: Patient reports increased soreness after lifting groceries and having arm pulled while walking her dog. PROM WFL; mid to end range discomfort with flexion. Strength right abduction 3/5 to90 deg. Functionally is able to lift arm higher for ADL's. Continue x 2 visits and then determine based on progress if additional visit required Chart Reviewed: Yes Plan Plan: Continue with current plan Exercises/Modalities/Manual: See DocFlow Sheet Education: Goals (Total # of Visits to Date: 15) Short Term Goals - Time Frame for Short term goals: 8 visits Short term goal 1: Educate on home program of assisted right shoulder ROM and distal strengthening - MET Short term goal 2: PROM flex 120 deg - MET Short term goal 3: PROM ER to 35 deg @ 90 deg - MET Production Assembler Goals - Time Frame for FDC goals : 18 visits FDC goal 1: PROM flexion 150 deg and abduction 140 deg oil heaterman goal 2: PROM ER 50 deg and IR 60 deg (@ 90 deg ) FDC goal 3: Functionally elevate right shoulder to reach behind head for self care/hair care FDC goal 4: Functionally reach behind back to don coat or bra FDC goal 5: Strength right shoulder/UE to carry gallong of milk Post Treatment Pain: 10/08 Time In: 1115 Time Out : 1200 Timed Code Treatment Minutes: 45 Minutes Total Treatment Time: 45 Minutes ZO CHEN PT Date: 10/04/2021 documented in this [facility] Work Phone: [phone]) 817-352103-28-2022 History of Present illness Narrative* Rashmi Paige - 09/25/2021 11:15 AM EDT [facility] Date: 09/25/2021 Patient Name: Mary Jane Rios : 1945 Pt Cancelled Appt due to going to a . Rashmi Paige Date: 09/25/2021 documented in this [facility] Work Phone: [phone]) 846-290303-24-2022 History of Present illness Narrative* Velasquez Martel, CARPENTRY TEACHER - 09/21/2021 9:00 AM EDT Images from the original note were not included. [facility] Outpatient Physical Therapy Daily Note Date: 09/21/2021 Patient Name: Mary Jane Rios : 1945 (75 y.o.) Referring Practitioner: Dr. Meyer Referral Date : 08/10/21 Diagnosis: Right RCR repair Treatment Diagnosis: Right RCR Onset Date: 07/28/21 PT Insurance Information: [facility] Total # of Visits Approved: 18 Per Physician Order Total # of Visits to Date: 11 No Show: 0 Canceled Appointment: 0 Plan of Care/Certification Expiration Date: 10/12/21 Pre-Treatment Pain: 4/10 Assessment Assessment: Patient states R shoulder pain is a 4/10 this morning. Progressed AROM exercises as outlined with good tolerance from patient. She was able to complete AROM flex at shelf with limited pain, but did have some compensation. Following session patient notes R shoulder pain remains a 4/10. Will continue to progress as able. Chart Reviewed: Yes Plan Plan: Continue with current plan Exercises/Modalities/Manual: See DocFlow Sheet Education: Goals (Total # of Visits to Date: 11) Short Term Goals - Time Frame for Short term goals: 8 visits Short term goal 1: Educate on home program of assisted right shoulder ROM and distal strengthening - MET Short term goal 2: PROM flex 120 deg - MET Short term goal 3: PROM ER to 35 deg @ 90 deg - MET Production Assembler Goals - Time Frame for FDC goals : 18 visits FDC goal 1: PROM flexion 150 deg and abduction 140 deg FDC goal 2: PROM ER 50 deg and IR 60 deg (@ 90 deg ) FDC goal 3: Functionally elevate right shoulder to reach behind head for self care/hair care oil heaterman goal 4: Functionally reach behind back to don coat or bra oil heaterman goal 5: Strength right shoulder/UE to carry gallong of milk Post Treatment Pain: 410 Time In: 0901 Time Out : 09 Timed Code Treatment Minutes: 45 Minutes Total Treatment Time: 45 Minutes Velasquez Martel PTA Date: 09/21/2021 [facility] Work Phone: [phone]) 351-933903-22-2022 History of Present illness Narrative* Nancy Nunez - 09/19/2021 9:15 AM EDT Images from the original note were not included. [facility] Outpatient Physical Therapy Daily Note Date: 09/19/2021 Patient Name: Mary Jane Rios : 1945 (75 y.o.) Referring Practitioner: Dr. Meyer Referral Date : 08/10/21 Diagnosis: Right RCR repair Treatment Diagnosis: Right RCR Onset Date: 07/28/21 PT Insurance Information: [facility] Total # of Visits Approved: 18 Per Physician Order Total # of Visits to Date: 10 No Show: 0 Canceled Appointment: 0 Plan of Care/Certification Expiration Date: 10/12/21 Pre-Treatment Pain: 4/10 Assessment Assessment: Patient rates pain today as 4/10. Reports she has been doing a lot of yard work latey. Completes exercises as outlined above followed by PROM to R shoulder. PROM R shoulder flexion is 140deg, ABD 87 degrees. Continue. Chart Reviewed: Yes Plan Plan: Continue with current plan Exercises/Modalities/Manual: See DocFlow Sheet Education: Goals (Total # of Visits to Date: 10) Short Term Goals - Time Frame for Short term goals: 8 visits Short term goal 1: Educate on home program of assisted right shoulder ROM and distal strengthening - MET Short term goal 2: PROM flex 120 deg - MET Short term goal 3: PROM ER to 35 deg @ 90 deg - MET [facility] Goals - Time Frame for oil heaterman goals : 18 visits oil heaterman goal 1: PROM flexion 150 deg and abduction 140 deg oil heaterman goal 2: PROM ER 50 deg and IR 60 deg (@ 90 deg ) oil heaterman goal 3: Functionally elevate right shoulder to reach behind head for self care/hair care oil heaterman goal 4: Functionally reach behind back to don coat or bra FDC goal 5: Strength right shoulder/UE to carry gallong of milk Post Treatment Pain: 09/07 Time In: 0915 Time Out : 09 Timed Code Treatment Minutes: 43 Minutes Total Treatment Time: 43 Minutes Nancy Dejan Nunez,CARPENTRY TEACHER Date: 09/19/2021 documented [facility] this [facility] Phone: [phone] 711-761503-18-2022 History of Present illness Narrative* Velasquez Martel, CARPENTRY TEACHER - 09/15/2021 9:45 AM EDT Images from the original note were not included. [facility] Outpatient Physical Therapy Daily Note Date: 09/15/2021 Patient Name: Mary Jane Rios : 1945 (75 y.o.) Referring Practitioner: Dr. Meyer Referral Date : 08/10/21 Diagnosis: Right RCR repair Treatment Diagnosis: Right RCR Onset Date: 07/28/21 PT Insurance Information: [facility] Total # of Visits Approved: 18 Per Physician Order Total # of Visits to Date: 9 No Show: 0 Canceled Appointment: 0 Plan of Care/Certification Expiration Date: 10/12/21 Pre-Treatment Pain: 4/10 Assessment Assessment: Patient states R shoulder pain is a 4/10 this morning. She reports doing some yardwork yesterday and believes that flared it up. Added bent over shoulder strengthening ex at stairs because patient is unable to tolerate prone on tball. Patient was able to complete these with good tolerance. R shoulder PROM: ER @90 = 57 deg and IR @90 = 52 deg. Following session patient states pain remains a 4/10. Chart Reviewed: Yes Plan Plan: Continue with current plan Exercises/Modalities/Manual: See DocFlow Sheet Education: Goals (Total # of Visits to Date: 9) Short Term Goals - Time Frame for Short term goals: 8 visits Short term goal 1: Educate on home program of assisted right shoulder ROM and distal strengthening - MET Short term goal 2: PROM flex 120 deg - MET Short term goal 3: PROM ER to 35 deg @ 90 deg - MET [facility] Goals - Time Frame for FDC goals : 18 visits FDC goal 1: PROM flexion 150 deg and abduction 140 deg FDC goal 2: PROM ER 50 deg and IR 60 deg (@ 90 deg ) FDC goal 3: Functionally elevate right shoulder to reach behind head for self care/hair care oil heaterman goal 4: Functionally reach behind back to don coat or bra oil heaterman goal 5: Strength right shoulder/UE to carry gallong of milk Post Treatment Pain: 10/08 Time In: 0945 Time Out : 1030 Timed Code Treatment Minutes: 45 Minutes Total Treatment Time: 45 Minutes Velasquez Martel PTA Date: 09/15/2021 [facility]: 1(479) 283-617103-16-2022 History of Present illness Narrative* Velasquez Martel PTA - 09/13/2021 9:45 AM EDT Images from the original note were not included. [facility] Outpatient Physical Therapy Daily Note Date: 09/13/2021 Patient Name: Mary Jane Rios : 1945 (75 y.o.) Referring Practitioner: Dr. Meyer Referral Date : 08/10/21 Diagnosis: Right RCR repair Treatment Diagnosis: Right RCR Onset Date: 07/28/21 PT Insurance Information: [facility] Total # of Visits Approved: 18 Per Physician Order Total # of Visits to Date: 8 No Show: 0 Canceled Appointment: 0 Plan of Care/Certification Expiration Date: 10/12/21 Pre-Treatment Pain: 3-4/10 Assessment Assessment: Patient states R shoulder pain is a 3-4/10 this morning. Progressed exercises with goodtolerance from patient. R shoulder PROM: flex = 135 deg and ABD = 135 deg. Following session patient notes pain remains a 3-4/10. Chart Reviewed: Yes Plan Plan: Continue with current plan Exercises/Modalities/Manual: See DocFlow Sheet Education: Goals (Total # of Visits to Date: 8) Short Term Goals - Time Frame for Short term goals: 8 visits Short term goal 1: Educate on home program of assisted right shoulder ROM and distal strengthening - MET Short term goal 2: PROM flex 120 deg - MET Short term goal 3: PROM ER to 35 deg @ 90 deg - MET Production Assembler Goals - Time Frame for FDC goals : 18 visits oil heaterman goal 1: PROM flexion 150 deg and abduction 140 deg FDC goal 2: PROM ER 50 deg and IR 60 deg (@ 90 deg ) FDC goal 3: Functionally elevate right shoulder to reach behind head for self care/hair care oil heaterman goal 4: Functionally reach behind back to don coat or bra FDC goal 5: Strength right shoulder/UE to carry gallong of milk Post Treatment Pain: 3-10/08 Time In: 0945 Time Out : 1030 Timed Code Treatment Minutes: 45 Minutes Total Treatment Time: 45 Minutes Velasquez Martel PTA Date: 09/13/2021 documented in this [facility] Work Phone: 1(475) 288-629203-10-2022 History of Present illness Narrative* Zo Chen PT - 09/07/2021 11:15 AM EST Images from the original note were not included. [facility] Outpatient Physical Therapy Daily Note Date: 09/07/2021 Patient Name: Mary Jane Rios : 1945 (75 y.o.) Referring Practitioner: Dr. Meyer Referral Date : 08/10/21 Diagnosis: Right RCR repair Treatment Diagnosis: Right RCR Onset Date: 07/28/21 PT Insurance Information: [facility] Total # of Visits Approved: 18 Per Physician Order Total # of Visits to Date: 7 No Show: 0 Canceled Appointment: 0 Plan of Care/Certification Expiration Date: 10/12/21 Pre-Treatment Pain: 2/10 Assessment Assessment: Patient to MD this morning; released from wearing sling. Completed ex per log with gonzalo. PROM as previous session. Patient compliant with home exercises and eager to get arm moving again. Progress with active assist/active ex Chart Reviewed: Yes Plan Plan: Continue with current plan Exercises/Modalities/Manual: See DocFlow Sheet Education: wall walking; Supine hold @ 90 deg Goals (Total # of Visits to Date: 7) Short Term Goals - Time Frame for Short term goals: 8 visits Short term goal 1: Educate on home program of assisted right shoulder ROM and distal strengthening - MET Short term goal 2: PROM flex 120 deg - MET Short term goal 3: PROM ER to 35 deg @ 90 deg - MET [facility] Goals - Time Frame for oil heaterman goals : 18 visits FDC goal 1: PROM flexion 150 deg and abduction 140 deg FDC goal 2: PROM ER 50 deg and IR 60 deg (@ 90 deg ) oil heaterman goal 3: Functionally elevate right shoulder to reach behind head for self care/hair care FDC goal 4: Functionally reach behind back to don coat or bra FDC goal 5: Strength right shoulder/UE to carry gallong of milk Post Treatment Pain: 08/10 Time In: 1105 Time Out : 1150 Timed Code Treatment Minutes: 45 Minutes Total Treatment Time: 45 Minutes ZO CHEN PT Date: 09/07/2021 documented in this [employer] Phone: [phone]) 567-639012-13-2021 History of Present illness Narrative* Rashmi Paige - 06/12/2021 10:30 AM EST [facility] Date: 06/12/2021 Patient Name: Mary Jane Rios : 1945 Pt Cancelled Appt due to Illness Rashmi Vazquez Paieg Date: 06/12/2021 documented in this [employer] Phone: 1(340) 528-790311-05-2021 History of Present illness Narrative* Zo Chen, PT - 05/05/2021 2:30 PM EDT Images from the original note were not included. [facility] Outpatient Physical Therapy Daily Note Date: 05/05/2021 Patient Name: Mary Jane Rios : 1945 (75 y.o.) Referring Practitioner: Dr. Meyer Referral Date : 04/27/21 Diagnosis: Rightshoulder sprain Treatment Diagnosis: Right shoulder pain Onset Date: 04/27/21 PT Insurance Information: [facility]CR Per Physician Order Total # of Visits to Date: 3 No Show: 0 Canceled Appointment: 0 Plan of Care/Certification Expiration Date: 06/23/21 Pre-Treatment Pain: 09/07 Assessment Assessment: Patient states shoulder is feeling better all the time. PROM flexion and abduction in scapular plane WFL with mild end range discomnfort; ER 50-55 deg; IR remains limited with discomfort.Functionally notes improved ability to don bra and coat. Compliant with home exercises and more aware of postural adjustments. Chart Reviewed: Yes Plan Plan: Continue with current plan Exercises/Modalities/Manual: See DocFlow Sheet Education: Goals (Total # of Visits to Date: 3) Short Term Goals - Time Frame for Short term goals: 5 visits Short term goal 1: Educate on home program for shld ROM and scapular strengthening- MET Short term goal 2: PROM ER @ 90 deg to 50 deg Short term goal 3: PROM IR @ 90 deg to 60 deg Production Assembler Goals - Time Frame for oil heaterman goals : 10 visits FDC goal 1: Subjective right shoulder pain < 3/10 with daily household tasks FDC goal 2: Active functional mobility to reach behind head for hair care and behind back to don coat/dressing FDC goal 3: Strength right shoulder to lift/carry gallon of milk or fold clothes Post Treatment Pain: 09/07 Time In: 1435 Time Out : 1510 Timed Code Treatment Minutes: 35 Minutes Total Treatment Time: 35 Minutes ZO CHEN PT Date: 05/05/2021 documented in this [facility] Work Phone: [phone]) 535-128305-21-2021 History of Present illness Narrative* Ericka Cline RN - 11/18/2020 6:50 AM EDT Pt states she took 6 tablets of Imodium yesterday. She states she is incontinent of urine/stool & the imodium is not helping. [facility] Phone: evaluation + Plan note No data available for this section [facility] Evaluation + Plan note Future Appointments Appointment Date:07/10/2022 02:00:00 PM Scheduled Provider:Donna Spencer CNP Location:[facility] Appointment Type:[facility] Follow Up [facility] Evaluation + Plan note Future Appointments Appointment Date:07/26/2022 08:15:00 AM Scheduled Provider: Location:[facility] Appointment Type:Surgery FT [facility] Evaluation + Plan note Future Appointments Appointment Date:02/28/2023 12:00:00 PM Scheduled Provider:Vonda HERNANDEZ MD Location:[facility] Appointment Type:[facility] Follow Up Future Scheduled Tests Laboratory* Vitamin B12 Level 08/28/22 [facility] Evaluation + Plan note Future Appointments Appointment Date:08/05/2023 12:30:00 PM Scheduled Provider: Location:[facility] Appointment Type:Surgery FT Future Scheduled Tests Laboratory* Vitamin B12 Level 08/28/22 [facility] evaluation note* Diagnosis Nausea vomiting and diarrhea- Primary Nausea with vomiting documented in this encounter [employer] Phone: [email or web address] note* Diagnosis Diarrhea of presumed infectious origin Intractable vomiting with nausea, unspecified vomiting type documented in this encounter [employer] Phone: [email or web address] note* Diagnosis Diarrhea, unspecified type- Primary General weakness Other malaise and fatigue Urinary incontinence, unspecified type documented in this encounter [employer] Phone: evaluation note* Diagnosis Low hemoglobin Anemia, unspecified documented in this encounter [employer] Phone: evaluation note* Diagnosis Low hemoglobin Anemia, unspecified documented in this encounter [employer] Phone: evaluation note* Diagnosis Screening mammogram, encounter for documented in this encounter [employer] Phone: evaluation note* Diagnosis Right shoulder pain, unspecified chronicity documented in this encounter [employer] Phone: evaluation note* Diagnosis Acute non-recurrent pansinusitis documented in this encounter [employer] Phone: evaluation note* Diagnosis Diarrhea of presumed infectious origin documented in this encounter [facility]* Diagnosis History of arthroscopy of right shoulder documented in this encounter [employer] Phone: evaluation note* Diagnosis Essential hypertension Unspecified essential hypertension Palpitations Hypothyroidism, unspecified type Hyperlipidemia, unspecified hyperlipidemia type Vitamin D deficiency disease Unspecified vitamin D deficiency documented in this encounter [employer] Phone: evaluation note* Diagnosis Essential hypertension Unspecified essential hypertension Pure hypercholesterolemia Acquired hypothyroidism Unspecified hypothyroidism Palpitations Vitamin D deficiency disease Unspecified vitamin D deficiency documented in this encounter [employer] Phone: evaluation note* Diagnosis Essential hypertension Unspecified essential hypertension Pure hypercholesterolemia Acquired hypothyroidism Unspecified hypothyroidism Palpitations Vitamin D deficiency disease Unspecified vitamin D deficiency documented in this encounter [employer] Phone: evaluation note* Diagnosis Essential hypertension Unspecified essential hypertension Pure hypercholesterolemia Acquired hypothyroidism Unspecified hypothyroidism Palpitations Vitamin D deficiency disease Unspecified vitamin D deficiency documented in this encounter [employer] Phone: evaluation note* Diagnosis Acute cystitis with hematuria- Primary Acute cystitis Vaginal yeast infection Candidiasis of vulva and vagina documented in this encounter [employer] Phone: evaluation note* Diagnosis Women's annual routine gynecological examination Vaginal burning Other specified symptom associated with female genital organs documented in this encounter [employer] Phone: [email or web address] note* Diagnosis H/O repair of right rotator cuff Personal history of surgery to other organs documented in this encounter [employer] Phone: evalqyctje note* Diagnosis Visit for screening mammogram Other screening mammogram documented in this encounter [facility] [employer] Phone: evaluation noteNo assessment information [facility] Work Phone: Evaluation noteNo [facility]No[facility] [employer] Other Evaluation note* Diagnosis Acute pharyngitis, unspecified etiology- Primary documented in this encounter [facility] [employer] Phone: evalytduul note* Diagnosis Essential hypertension Unspecified essential hypertension Palpitations Hypothyroidism, unspecified type Hyperlipidemia, unspecified hyperlipidemia type Vitamin D deficiency disease Unspecified vitamin D deficiency documented in this encounter [facility] [employer] Phone: evaluation note* Diagnosis Non-recurrent acute suppurative otitis media of left ear without spontaneous rupture of tympanic membrane- Primary Acute nonintractable headache, unspecified headache type documented in this encounter [employer] Phone: evaluation note* Diagnosis Chronic low back pain with right-sided sciatica, unspecified back pain laterality- Primary documented in this encounter [facility] note* Diagnosis Renal cyst Unspecified congenital cystic kidney disease documented in this encounter [facility] note* Diagnosis Bruxism (teeth grinding)- Primary Other specified psychophysiological malfunction Acute suppurative otitis media of left ear without spontaneous rupture of tympanic membrane, recurrence not specified ROSETTE on CPAP Hearing loss, unspecified hearing loss type, unspecified laterality [facility] Diagnosis Sensorineural hearing loss, bilateral- Primary Hearing loss, unspecified hearing loss type, unspecified laterality documented [facility] encounter [facility]* Diagnosis COVID-19 virus infection- Primary documented in this encounter [facility] Neighborhood[facility] note* Diagnosis New onset atrial fibrillation (HCC)- Primary Atrial fibrillation Atrial fibrillation with RVR (HCC) Atrial fibrillation History of chronic kidney disease Personal history of other disorder of urinary system Symptoms of dehydration Fluid level behind tympanic membrane of both ears Acute pansinusitis, recurrence not specified Nausea vomiting and diarrhea Nausea with vomiting documented in this [facility] Diagnosis Paroxysmal atrial fibrillation (HCC)- Primary Atrial fibrillation documented in this encounter [facility] general Narrative - Reported* Type Description Date Medical History Cortical senile cataract Medical History Lump in neck Medical History sleep apnea Medical History GERD Medical History Atrial flutter Medical History HTN Medical History Dysrythmic disorder Medical History Chronic sinusitis Medical History IBS Medical History Palpitations Medical History Diaphramatic hernia Medical History Benign neoplasm of stomach Medical History hyperlipodemia Medical History Migranes Medical History Hypothyroidism Medical History Diverticulis Surgical History Hysterectomy 1976 Surgical History Bilateral knee replacement Surgical History RT hip replacement Surgical History gallbladder removal Surgical History Polyp removal Surgical History Carpertunnel surgery Surgical History Sigmoid Surgical History Surgery on sinuses Surgical History ankle surgery Surgical History Epidural injections Hospitalization History see above [employer] Other [employer] general Narrative - Reported* Type Description Date Medical History Cortical senile cataract Medical History Lump in neck Medical History sleep apnea Medical History GERD Medical History Atrial flutter Medical History HTN Medical History Dysrythmic disorder Medical History Chronic sinusitis Medical History IBS Medical History Palpitations Medical History Diaphramatic hernia Medical History Benign neoplasm of stomach Medical History hyperlipodemia Medical History Migranes Medical History Hypothyroidism Medical History Diverticulis Medical History appendectomy Medical History Arthritis Medical History basal cell carcinoma Medical History cataracts Medical History gall bladder disease Medical History high cholesterol Medical History migraine headaches Medical History osteoporosis Medical History pneumonia Medical History polio Medical History chronic depression Medical History anxiety Medical History thyroid disease Surgical History Hysterectomy 1976 Surgical History Bilateral knee replacement Surgical History RT hip replacement Surgical History gallbladder removal Surgical History Polyp removal Surgical History Carpertunnel surgery Surgical History Sigmoid Surgical History Surgery on sinuses Surgical History ankle surgery Surgical History Epidural injections Surgical History hernia Surgical History rotator cuff tear repair Hospitalization History see above [employer] Other Hospital Discharge instructions* Attachments The following attachments cannot be sent through Care Everywhere. * Diarrhea (Belgian) documented in this [facility] Phone: Hospital Discharge instructions* Attachments The following attachments cannot be sent through Care Everywhere. * Fatigue (Belgian) * Diarrhea (Belgian) * Stress Incontinence: Female (Belgian) * Urge Incontinence: Female (Belgian) documented in this [facility] [employer] Work Phone: Hospital Discharge instructions* Attachments The following attachments cannot be sent through Care Everywhere. * UTI (Urinary Tract Infection): Female (Belgian) * Vaginal Yeast Infection (Belgian) documented in this [facility] [employer] Work Phone: Hospital Discharge instructions No data available for this section [facility] Hospital Discharge instructions* Attachments The following attachments cannot be sent through Care Everywhere. * Otitis Media (Belgian) * Headache (Belgian) documented in this [facility] Work Phone: Hospital Discharge instructions* Attachments The following attachments cannot be sent through Care Everywhere. * Coronavirus Disease (COVID-19): General Info (Belgian) documented in this [facility] Dis[facility]* Attachments The following attachments cannot be sent through Care Everywhere. * Supraventricular Tachycardia (Belgian) [facility] this [facility] No data available for this section [facility] Summary Purpose Family History No Family History Records Found Relationship Condition Age at Onset Recorded Date/T lennox Not Specified Family history of co ronary artery bypass surgery Unknown Chronic obstructive pulmonary disease Unk nown Diabetes mellitus Unknown sister Malignant neoplasm of breast Unknown Systemic sclerosis Unknown sister Diabetes mellitus Unknown brother Heart problem Unknown sister Pulmonary embolism Unknown Relationship Condition Age at Onset Recorded Date/T lennox Not Specified Family history of co ronary artery bypass surgery Unknown Chronic obstructive pulmonary disease Unk nown Diabetes mellitus Unknown sister Malignant neoplasm of breast Unknown Systemic sclerosis Unknown sister Diabetes mellitus Unknown brother Heart problem Unknown sister Pulmonary embolism Unknown father Unknown Not Specified Diabetes mellitus Unknown Unknown Heart disease Unknown natural son Diabetes mellitus Unknown sister Malignant neoplasm Unknown Advance Directives No Advanced Directives Records FoundDocuments on File Type Date Recorded Patient Associate Financial Representative Expl anation Advance Directives and Livin g Will Advance Directives and Livin g Will 03/01/2016 1:57 PM Power of Motorcycle Builder Power of Motorcycle Builder 03/01/2016 1:57 PM Latest Code Status on File Code Status Date Activated Date Inactivated Comments Full Code 02/21/2015 1:32 PM 02/21/2015 5:10 PM Full Code 02/21/2015 12:11 PM 02/21/2015 1:32 PM Full Code 01/31/2015 10:04 AM 01/31/2015 12:51 PM Full Code 01/31/2015 8:49 AM 01/31/2015 10:04 AM Full Code 04/30/2012 8:28 AM 04/30/2012 3:52 PM Documents on File Type Date Recorded Patient Associate Financial Representative Expl anation Advance Directives and Livin g Will Advance Directives and Livin g Will 03/01/2016 1:57 PM Power of Motorcycle Builder Power of Motorcycle Builder 03/01/2016 1:57 PM Latest Code Status on File Code Status Date Activated Date Inactivated Comments Full Code 02/21/2015 1:32 PM 02/21/2015 5:10 PM Full Code 02/21/2015 12:11 PM 02/21/2015 1:32 PM Full Code 01/31/2015 10:04 AM 01/31/2015 12:51 PM Full Code 01/31/2015 8:49 AM 01/31/2015 10:04 AM Full Code 04/30/2012 8:28 AM 04/30/2012 3:52 PM Documents on File Type Date Recorded Patient Associate Financial Representative Expl anation ACP-Advance Directive ACP-Advance Directive 03/01/2016 1:57 PM ACP-Power of Motorcycle Builder ACP-Power of Motorcycle Builder 03/01/2016 1:57 PM Documents on File Type Date Recorded Patient Associate Financial Representative Expl anation ACP-Advance Directive ACP-Advance Directive 03/01/2016 1:57 PM ACP-Power of Motorcycle Builder ACP-Power of Motorcycle Builder 03/01/2016 1:57 PM Documents on File Type Date Recorded Patient Associate Financial Representative Expl anation ACP-Advance Directive ACP-Power of Motorcycle Builder ACP-Advance Directive 03/01/2016 1:57 PM ACP-Power of Motorcycle Builder 03/01/2016 1:57 PM Documents on File Type Date Recorded Patient Associate Financial Representative Expl anation ACP-Advance Directive ACP-Power of Motorcycle Builder ACP-Advance Directive 03/01/2016 1:57 PM ACP-Power of Motorcycle Builder 03/01/2016 1:57 PM Healthcare Agents on File Name Relationship Healthcare Agent Relationshi p Communication Adeel Athy Spouse Primary Decision Maker Healthcare Agents on File Name Relationship Healthcare Agent Relationshi p Communication Adeel Athy Spouse Primary Decision Maker Healthcare Agents on File Name Relationship Healthcare Agent Relationshi p Communication Adeel Athy Spouse Primary Decision Maker Healthcare Agents on File Name Relationship Healthcare Agent Relationshi p Communication Adeel Athy Spouse Primary Decision Maker Healthcare Agents on File Name Relationship Healthcare Agent Relationshi p Communication Adeel Athy Spouse Primary Decision Maker Healthcare Agents on File Name Relationship Healthcare Agent Relationshi p Communication Adeel Athy Spouse Primary Decision Maker Healthcare Agents on File Name Relationship Healthcare Agent Relationshi p Communication Adeel Athy Spouse Primary Decision Maker Healthcare Agents on File Name Relationship Healthcare Agent Relationshi p Communication Adeel Athy Spouse Primary Decision Maker Healthcare Agents on File Name Relationship Healthcare Agent Relationshi p Communication Adeel Athy Spouse Primary Decision Maker Healthcare Agents on File Name Relationship Healthcare Agent Relationshi p Communication Adeel Athy Spouse Primary Decision Maker Documents on File Type Date Recorded Patient Associate Financial Representative Expl anation ACP-Advance Directive 03/01/2016 1:57 PM ACP-Power of Motorcycle Builder 03/01/2016 1:57 PM Healthcare Agents on File Name Relationship Healthcare Agent Relationshi p Communication Adeel Athy Spouse Primary Decision Maker Advance Directive Response Recorded Date/ Time Advance Directives No April 22, 2017 3:57pm Advance Directive Response Recorded Date/ Time Advance Directives No April 22, 2017 2:57pm Documents on File Type Date Recorded Patient Associate Financial Representative Expl anation ACP-Advance Directive 03/01/2016 1:57 PM ACP-Power of Motorcycle Builder 03/01/2016 1:57 PM Healthcare Agents on File Name Relationship Healthcare Agent Relationshi p Communication Adeel Athy Spouse Primary Decision Maker Healthcare Agents on File Name Relationship Healthcare Agent Relationshi p Communication Adeel Athy Spouse Primary Decision Maker Healthcare Agents on File Name Relationship Healthcare Agent Relationshi p Communication Adeel Athy Spouse Primary Decision Maker Latest Code Status on File Code Status Date Activated Date Inactivated Comments Full Code 02/21/2015 1:32 PM 02/21/2015 5:10 PM Code Status History Code Status Date Activated Date Inactivated Comments Full Code 02/21/2015 12:11 PM 02/21/2015 1:32 PM Full Code 01/31/2015 10:04 AM 01/31/2015 12:51 PM Full Code 01/31/2015 8:49 AM 01/31/2015 10:04 AM Full Code 04/30/2012 8:28 AM 04/30/2012 3:52 PM Healthcare Agents on File Name Relationship Healthcare Agent Relationshi p Communication Adeel Athy Spouse Primary Decision Maker Healthcare Agents on File Name Relationship Healthcare Agent Relationshi p Communication Adeel Athy Spouse Primary Decision Maker Healthcare Agents on File Name Relationship Healthcare Agent Relationshi p Communication Adeel Athy Spouse Primary Decision Maker Documents on File Type Date Recorded Patient Associate Financial Representative Expl anation ACP-Power of Motorcycle Builder 03/01/2016 1:57 PM ACP-Advance Directive 03/01/2016 1:57 PM Latest Code Status on File Code Status Date Activated Date Inactivated Comments Full Code 02/21/2015 1:32 PM 02/21/2015 5:10 PM Code Status History Code Status Date Activated Date Inactivated Comments Full Code 02/21/2015 12:11 PM 02/21/2015 1:32 PM Full Code 01/31/2015 10:04 AM 01/31/2015 12:51 PM Full Code 01/31/2015 8:49 AM 01/31/2015 10:04 AM Full Code 04/30/2012 8:28 AM 04/30/2012 3:52 PM Healthcare Agents on File Name Relationship Healthcare Agent Relationshi p Communication Adeel Athy Spouse Primary Decision Maker Documents on File Type Date Recorded Patient Associate Financial Representative Expl anation ACP-Power of Motorcycle Builder 03/01/2016 1:57 PM ACP-Advance Directive 03/01/2016 1:57 PM Healthcare Agents on File Name Relationship Healthcare Agent Relationshi p Communication Adeel Athy Spouse Primary Decision Maker Healthcare Agents on File Name Relationship Healthcare Agent Relationshi p Communication Adeel Rios Spouse Primary Decision Maker Healthcare Agents on File Name Relationship Healthcare Agent Relationsri p Communication Adeel Rios Spouse Primary Decision Maker Discharge Instructions * Instructions* Lexy Tapia MD - 05/30/2019 Antibiotic written as a SNAP (Safety net antibiotic prescription), start medication if fever develops You can take your Ashley or Ashley D or Claritin if desired, in addition to Flonase which may also help both your sinuses and ear effusions * Attachments The following attachments cannot be sent through Care Everywhere. * Sinusitis (Belgian) documented in this encounter* Attachments The following attachments cannot be sent through Care Everywhere. * Fatigue (Belgian) * Vertigo (Belgian) documented in this encounter Assessments Diagnosis Acute recurrent frontal sinusitis- Primary Acute frontal sinusitis Acute middle ear effusion, bilateral Diagnosis Visit for screening mammogram Other screening mammogram Diagnosis General weakness Other malaise and fatigue YANNA (middle ear effusion), bilateral Diagnosis Acute recurrent pansinusitis Other acute sinusitis Fever, unspecified fever cause Diagnosis Essential hypertension Unspecified essential hypertension Palpitations Hypothyroidism, unspecified type Diagnosis Essential hypertension Unspecified essential hypertension Palpitations Hypothyroidism, unspecified type Hyperlipidemia, unspecified hyperlipidemia type Vitamin D deficiency disease Unspecified vitamin D deficiency Diagnosis Viral illness Unspecified viral infection, in conditions classified elsewhere and of unspecified site Exposure to COVID-19 virus History of Present Illness * Bianka Zurita RN - 03/31/2020 3:33 PM EDT Pt up to bathroom with minimal assist. Pt states that her nausea is better but she continues to have some dizziness. Gait is steady. documented in this encounter Reason for Referral Status Reason Specialty Diagnoses / Procedures Referre d By Contact Referred To Contact Open Cardiology Diagnoses Essential hypertension Palpitations Hypothyroidism, unspecified type Procedures EKG 12 Lead Reagan Givens MD [address] [place] [address] Status Reason Specialty Diagnoses / Procedures Referre d By Contact Referred To Contact Closed Radiology Diagnoses Screening mammogram, encounter for Procedures ANA WU DIGITAL SCREEN BILATERAL Roni Dahl MD [address] [place] [address] [facility] [address] [place] [address] Specialty Diagnoses / Procedures Referred By Contac t Referred To Contact Cardiology Diagnoses Essential hypertension Palpitations Hypothyroidism, unspecified type Hyperlipidemia, unspecified hyperlipidemia type Vitamin D deficiency disease Procedures EKG 12 Reagan Atkins MD [address] [place], [place] [phone] Referral ID Status Reason Start Date Expiration Date Visits Re quested Visits Authorized [id number] Open 09/06/2021 09/06/2022 1 1 Status Reason Specialty Diagnoses / Procedures Referre d By Contact Referred To Contact Open Cardiology Diagnoses Essential hypertension Pure hypercholesterolemia Acquired hypothyroidism Palpitations Vitamin D deficiency disease Procedures EKG 12 Reagan Atkins MD [address] [place], [place] [phone] Specialty Diagnoses / Procedures Referred By Contac t Referred To Contact Radiology Diagnoses Visit for screening mammogram Procedures [facility] WU DIGITAL SCREEN BILATERAL Roni Dahl MD [address] [place] [id number] Referral ID Status Reason Start Date Expiration Date Visits Re quested Visits Authorized [id number] Closed 01/25/2022 01/25/2023 1 1 Specialty Diagnoses / Procedures Referred By Contac t Referred To Contact Radiology Diagnoses Renal cyst Procedures US RENAL LIMITED Yanelis Guzman MD [address] [facility], [address] [place] [address] Referral ID Status Reason Start Date Expiration Date Visits Re quested Visits Authorized [id number] Open 03/13/2023 03/12/2024 1 1 Specialty Diagnoses / Procedures Referred By Contac t Referred To Contact Audiology Diagnoses Hearing loss, unspecified hearing loss type, unspecified laterality Grayson Hutchinson Jr., DO [address] [place] [address] Mary Sue, AuD [address] [place] [address] Referral ID Status Reason Start Date Expiration Date V isits Requested Visits Authorized [id number] Closed Specialty Services Required/Flower ent's Best Interest 05/02/2023 05/01/2024 1 1 Specialty Diagnoses / Procedures Referred By Juan Manuel garibay Referred To Contact Cardiology Diagnoses New onset atrial fibrillation (HCC) Atrial fibrillation with RVR (HCC) Procedures 60394 - OR Single/Multiple Event Recorder Lexy Tapia MD [address] [place] [address] [place] [address] Referral ID Status Reason Start Date Expiration Date Visits Re quested Visits Authorized [id number] Open 10/23/2023 10/22/2024 1 1 Chief Complaint and Reason for Visit Chief Complaint m81.0 M81.0 M15.0 Z79.899 Chief Complaint M81.0 M15.0 Z79.899 Chief Complaint M81.0 M15.0 Z79.899 M46.1 Back Pain m47.26 Chief Complaint M46.1 Back Pain m47.26 Back Pain Chief Complaint m47.26 Back Pain Back Pain Chief Complaint m47.26 Back Pain Back Pain Back Pain Chief Complaint Back Pain Back Pain Back Pain Chief Complaint M47.26 Chief Complaint M47.26 back/R leg pain sent by Chief Complaint M47.26 back/R leg pain sent by Dr John wayne Chief Complaint M47.26 back/R leg pain sent by Dr John wayne Hip pain Chief Complaint back/R leg pain sent by Dr John wayne Hip pain Additional Source Comments INFORMATION SOURCE (unrecogn ized section and content) DATE CREATED AUTHOR 12/24/2017 [facility] DATE CREATED AUTHOR AUTHOR'S ORGANIZ ATION 03/27/2018 [facility] DATE CREATED AUTHOR AUTHOR'S ORGANIZ ATION 07/13/2021 [facility] dical Specialist DATE CREATED AUTHOR AUTHOR'S ORGANIZ ATION 03/17/2023 [facility] DATE CREATED AUTHOR AUTHOR'S ORGANIZ ATION 04/13/2023 [facility] DATE CREATED AUTHOR AUTHOR'S ORGANIZ ATION 05/06/2023 [facility] DATE CREATED AUTHOR AUTHOR'S ORGANIZ ATION 10/08/2023 [facility] DATE CREATED AUTHOR AUTHOR'S ORGANIZ ATION 12/13/2023 Antoinette wesley DATE CREATED AUTHOR AUTHOR'S ORGANIZ ATION 12/30/2023 [facility] DATE CREATED AUTHOR AUTHOR'S ORGANIZ ATION 01/17/2024 [facility] Reason for Visit (unrecogniz ed section and content) Reason Comments Illness Pt states that she h ad a cough and wheezing for the past couple of days as well as a headache; Status Reason Specialty Diagnoses / Procedures Referre d By Contact Referred To Contact Closed Radiology Diagnoses Visit for screening mammogram Procedures ANA DIGITAL SCREEN W OR WO CAD BILATERAL ANA DIGITAL SCREENING AUGMENTED BILATERAL HC MAMMOGRAM DIGITAL SCREEN Roni Sales MD [address] [place] [address] [facility] [address] [place] [id number] Reason Comments Illness Pt has not been feel ing well for about 5-6 weeks. pt states, I just feel uncoordinated, and weak. Pt has been dizzy but diagnosed with vertigo. Pt was exposed to covid on 03/15. Reason Comments Diarrhea Pt states she has gallardo d diarrhea since last saturday & she has been vomiting since 0500. Reason Comments Abdominal Pain was seen in ed two w eeks ago for diarrhea and vomiting. Patient continues to have loose stool. Complains of fatigue and new urine incontinence Diarrhea Status Reason Specialty Diagnoses / Procedures Referre d By Contact Referred To Contact Closed Radiology Diagnoses Screening mammogram, encounter for Procedures ANA WU DIGITAL SCREEN BILATERAL Roni Dahl MD [address] [place] [address] [facility] [address] [place] [phone] Status Reason Specialty Diagnoses / Procedures Referred By Contact Referred To Contact Open Physical Therapy Diagnoses Shoulder pain, right Procedures physical therapy Mitch, Angelito Camarillo, DO [address] [place] [address] Zo Chen, PT [address] [place] [address] Specialty Diagnoses / Procedures Referred By Juan Manuel garibay Referred To Contact Physical Therapy Diagnoses Shoulder pain, right Procedures physical therapy Pocos, Angelito Camarillo, DO [address] [place] [phone] Zo Chen, PT [address] [place] [address] Referral ID Status Reason Start Date Expiration Date Visits Re quested Visits Authorized [id number] Open 04/28/2021 04/28/2022 99 99 Reason Comments Urinary Tract Infection Pt states that s he has been having painful urination x 10 days. Specialty Diagnoses / Procedures Referred By Juan Manuel garibay Referred To Contact Radiology Diagnoses Visit for screening mammogram Procedures [facility] WU DIGITAL SCREEN BILATERAL Roni Dahl MD [address] [place] [address] Referral ID Status Reason Start Date Expiration Date Visits Re quested Visits Authorized [id number] Closed 01/25/2022 01/25/2023 1 1 Reason Comments Pharyngitis Throat pain for two days, feels like I am swallowing golf balls Reason Comments Nasal Congestion Cough Cough Pt c/o of congestion cough headache. She reports diagnosed with PNA one week ago finished one ATB and is currently still finishing a second ATB Reason Comments Hip Pain Patient complains of right hip pain that started last after working in the garden. Patient seen at [facility] this past Saturday and given cortisone/ muscle relaxer. Patient unable to relieve pain. Specialty Diagnoses / Procedures Referred By Juan Manuel garibay Referred To Contact Radiology Diagnoses Renal cyst Procedures US RENAL LIMITED Yanelis Guzman MD [address] [facility], [address] [place] [address] Referral ID Status Reason Start Date Expiration Date Visits Re quested Visits Authorized [id number] Open 03/13/2023 03/12/2024 1 1 Reason Comments Otitis Media [employer], referral from Maricruz Barber [facility] for otitis media. Patient states she has had left ear infections for most of her life. She was treated for ear infection with Augmentin in October. 3 weeks ago, woke up with extreme pain and was treated again for b/l ear infection. She returned to [facility] and was told that her ear was still infected. Last hearing test several years ago in [place]. 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 Saw Sanjuanita in 2019. Specialty Diagnoses / Procedures Referred By Juan Manuel garibay Referred To Contact Otolaryngology Diagnoses Acute suppurative otitis media of left ear without spontaneous rupture of tympanic membrane, recurrence not specified Andre Rowe, [facility] [address] [place] [address] Grayson Hutchinson Jr., DO [address] [phone] Referral ID Status Reason Start Date Expiration Date V isits Requested Visits Authorized [id number] Closed Specialty Services Required/Flower ent's Best Interest 04/24/2023 04/23/2024 1 1 Specialty Diagnoses / Procedures Referred By Juan Manuel garibay Referred To Contact Audiology Diagnoses Hearing loss, unspecified hearing loss type, unspecified laterality Grayson Hutchinson Jr., DO [address] [place] [address] Mary Sue, Oswaldo [address] [place] [address] Referral ID Status Reason Start Date Expiration Date V isits Requested Visits Authorized [id number] Closed Specialty Services Required/Flower ent's Best Interest 05/02/2023 05/01/2024 1 1 Reason Comments Illness Cough, runny nose, c ongestion since Saturday. Patient's is covid + Reason Comments Diarrhea States has been havi ng diarrhea since yesterday and vomited 1x since yesterday. Reason Comments Tachycardia Pt reports heart ra cing' started today around 2 pm No chest pain, slight SOBRecent dx AFib within last 3 weeks Ordered Prescriptions (unrec ognized section and content) Prescription Sig Dispensed Refills Start Date End Da te ondansetron (ZOFRAN ODT) 4 MG disintegrating tablet Take 1 tablet by mouth every 8 hours as needed for Nausea or Vomiting 10 tablet 0 11/18/2020 diphenoxylate-atropine (LOMOTIL) 2.5-0.025 MG per tabletIndications:Nausea vomiting and diarrhea Take 1 tablet by mouth 4 times daily as needed for Diarrhea for up to 3 days. 10 tablet 0 11/18/2020 11/21/2020 Prescription Sig Dispensed Refills Start Date End Da te oxybutynin (DITROPAN XL) 5 MG extended release tablet Take 1 tablet by mouth daily 30 tablet 0 11/27/2020 loperamide (RA ANTI-DIARRHEAL) 2 MG capsule Take 1 capsule by mouth 4 times daily as needed for Diarrhea 30 capsule 0 11/27/2020 12/07/2020 Prescription Sig Dispensed Refills Start Date End Da te nitrofurantoin, macrocrystal-monohydra te, (MACROBID) 100 MG capsule Take 1 capsule by mouth 2 times daily for 10 days 20 capsule 0 10/14/2021 10/24/2021 clotrimazole (LOTRIMIN) 2 % CREA vaginal cream 1 applicator per vaginal at bedtime x 5 days 5 each 0 10/14/2021 fluconazole (DIFLUCAN) 100 MG tablet 1 tab PO x1 now, and 1 tab PO when antibiotics completed 2 tablet 0 10/14/2021 Prescription Sig Dispensed Refills Start Date End Da te nystatin (MYCOSTATIN) 624394 UNIT/ML suspension Take 5 mLs by mouth 4 times daily Swish and swallow. 200 mL 0 11/25/2022 amoxicillin-clavulanate (AUGMENTIN) 875-125 MG per tablet Take 1 tablet by mouth 2 times daily for 10 days 20 tablet 0 11/25/2022 12/05/2022 nystatin (MYCOSTATIN) 567298 UNIT/ML suspension Take 5 mLs by mouth 4 times daily Swish and swallow. 200 mL 0 11/25/2022 11/25/2022 amoxicillin-clavulanate (AUGMENTIN) 875-125 MG per tablet Take 1 tablet by mouth 2 times daily for 10 days 20 tablet 0 11/25/2022 11/25/2022 Prescription Sig Dispensed Refills Start Date End Da te azithromycin (ZITHROMAX Z-FABI) 250 MG tablet Take 2 tablets (500 mg) on Day 1, and then take 1 tablet (250 mg) on days 2 through 5. 1 packet 0 07/01/2023 07/05/2023 predniSONE (DELTASONE) 20 MG tablet 2 tablets daily x 2 days then 1 tablet 6 tablet 0 07/01/2023 Prescription Sig Dispensed Refills Start Date End Da te clotrimazole (MYCELEX) 10 MG darling Take 1 tablet by mouth 4 times daily as needed (thrush) 40 tablet 0 10/23/2023 11/02/2023 ondansetron (ZOFRAN-ODT) 4 MG disintegrating tablet Take 1 tablet by mouth 3 times daily as needed for Nausea or Vomiting 21 tablet 0 10/23/2023 metoprolol tartrate (LOPRESSOR) 25 MG tablet Take 0.5 tablets by mouth 2 times daily 15 tablet 1 10/23/2023 apixaban (ELIQUIS) 5 MG TABS tablet Take 1 tablet by mouth 2 times daily 60 tablet 1 10/23/2023 fluticasone (FLONASE) 50 MCG/ACT nasal sprayIndications:Acute pansinusitis, recurrence not specified 1 spray by Nasal route daily 3 each 1 10/23/2023 Scheduled Active and Recently Administ ered Medications (unrecognized section and content) Medication Order 11/16/2020 11/17/2020 11/18/2020 0.9 % sodium chloride bolus (COMPLETED) 1,000 mL (9.88 mL/kg), Intravenous, at 500 mL/hr, Administer over 2 Hours, ONCE, On Sat11/18/20 at 0715, For 1 dose 07 (New Bag - Prov ider: Ericka Cline RN)09 (Stopped - Provider: Yumiko Rojas RN) ondansetron (ZOFRAN) injection 4 mg (COMPLETED) 4 mg, Intravenous, ONCE, On Sat11/18/20 at 0715, For 1 dose 0713 (Given - Provid er: Ericka Cline RN) Scheduled Medication Order 02/06/2023 02/07/2023 02/08/2023 dexamethasone (DECADRON) injection 8 mg (COMPLETED) 8 mg, IntraMUSCular, ONCE, On Sat02/08/23 at 1445, For 1 dose 1447 (Given - Provid er: Emily Choi RN) hydrocodone-acetaminophen (NORCO) tablet 5-325 mg (STARTER PACK) This order is for a take home starter pack of medication. Please document Furnish to patient on the AUG. 1448 ([facility] - Provider: Emily Choi, MARIFER) Scheduled Medication Order 10/21/2023 10/22/2023 10/23/2023 ondansetron (ZOFRAN) injection 4 mg (COMPLETED) 4 mg, IntraVENous, ONCE, 1 dose, On Sat10/23/23 at 1000 0957 (Given - Provid er: Yumiko Rojas RN) sodium chloride 0.9 % bolus 1,000 mL (COMPLETED) 1,000 mL (10.3 mL/kg), IntraVENous, at 983.6 mL/hr, Administer over 61 Minutes, ONCE, On Sat10/23/23 at 1000, For 1 dose 0956 (New Bag - Prov ider: Yumiko Rojas RN)1100 (Stopped - Provider: Khai Ma RN) Scheduled Medication Order 11/12/2023 11/13/2023 11/14/2023 magnesium sulfate 2000 mg in 50 mL IVPB premix (COMPLETED) 2,000 mg, IntraVENous, at 25 mL/hr, Administer over 2 Hours, ONCE, On Sat11/14/23 at 2045, For 1 dose, Recommended infusion rate not to exceed 1,000 mg (milligrams) per hour. 2050 (New Bag - Prov ider: Maria R Love RN)2209 (Rate/Dose Change - Provider: Kasey Currie RN - Comment: rate increased per to finish medication dose)2226 (Stopped - Provider: Kasey Currie RN) metoprolol (LOPRESSOR) injection 5 mg (COMPLETED) 5 mg, IntraVENous, ONCE, 1 dose, On Sat11/14/23 at [id number] (Given - Provid er: Maria R Love RN) metoprolol (LOPRESSOR) injection 5 mg (COMPLETED) 5 mg, IntraVENous, ONCE, 1 dose, On Sat11/14/23 at 2015 2012 (Given - Provid er: Maria R Love RN) metoprolol tartrate (LOPRESSOR) tablet 50 mg (COMPLETED) 50 mg, Oral, ONCE, 1 dose, On Shannan 11/14/23 at 2029 2046 (Given - Provid er: Maria R Love RN) potassium chloride (KLOR-CON) extended release tablet 40 mEq (COMPLETED) 40 mEq, Oral, ONCE, 1 dose, On Shannan 11/14/23 at 2044, Do not crush or break. 2046 (Given - Provid er: Maria R Love RN) Care Teams (unrecognized sec tion and content) Survey Methodologist Relationship Specialty Start Date End Date Roni Dahl MD [address] [place] [phone] PCP - General 07/15/12 Survey Methodologist Relationship Specialty Start Date End Date Roni Dahl MD [address] [place] [address] PCP - General 07/15/12 Survey Methodologist Relationship Specialty Start Date End Date Roni Dahl MD [address] [place] [address]55[address] PCP - General 07/15/12 Survey Methodologist Relationship Specialty Start Date End Date Roni Dahl MD [address] [place] [address] PCP - General 07/15/12 Survey Methodologist Relationship Specialty Start Date End Date Roni Dahl MD [address] [place] [address]396 PCP - General 07/15/12 Survey Methodologist Relationship Specialty Start Date End Date Roni Dahl MD [address] [place] [address]245 PCP - General 07/15/12 Survey Methodologist Relationship Specialty Start Date End Date Roni Dahl MD [address] [place] [address] PCP - General 07/15/12 Survey Methodologist Relationship Specialty Start Date End Date Roni Dahl MD [address] [place] [address]1004 PCP - General 07/15/12 Survey Methodologist Relationship Specialty Start Date End Date Roni Dahl MD [address] [place], [place] [phone] PCP - General 07/15/12 Survey Methodologist Relationship Specialty Start Date End Date Roni Dahl MD [address] [place], [place] [phone] PCP - General 07/15/12 Survey Methodologist Relationship Specialty Start Date End Date Roni Dahl MD [address] [place], [place] [phone] PCP - General 07/15/12 Survey Methodologist Relationship Specialty Start Date End Date Roni Dahl MD [address] [place], [place] [phone] PCP - General 07/15/12 Team Status: Inactive Member Role Status Dates Roni Dahl MD Primary Care Provider Active Daniel Hylton MD Attending Provider Active Team Status: Inactive Member Role Status Dates Roni Dahl MD Primary Care Provider Active DENISHA Cedeño Attending Provider Active Team Status: Active Member Role Status Dates Roni Dahl MD Primary Care Provider Active Team Status: Inactive Member Role Status Dates Roni Dahl MD Primary Care Provider Active Yanelis Garcia MD Attending Provider Active Survey Methodologist Relationship Specialty Start Date End Date Roni Dahl MD [address] [place] [address] PCP - General 07/15/12 Survey Methodologist Relationship Specialty Start Date End Date Roni Dahl MD [address] [place] [address] PCP - General 07/15/12 Survey Methodologist Relationship Specialty Start Date End Date Roni Dahl MD [address] [place] [address] PCP - General 07/15/12 Survey Methodologist Relationship Specialty Start Date End Date Roni Dahl MD [address] [place] [address] PCP - General 07/15/12 Survey Methodologist Relationship Specialty Start Date End Date Roni Dahl MD [address] [place] [address] PCP - General 07/15/12 Team Status: Inactive Member Role Status Dates Roni Dahl MD Primary Care Provider Active Jesus Vasquez APRN Emergency Provider Active Survey Methodologist Relationship Specialty Start Date End Date Roni Dahl MD [address] [phone] PCP - General 07/15/12 Team Status: Inactive Member Role Status Dates Roni Dahl MD Primary Care Provider Active Mukul Wilson MD Attending Provider Active Survey Methodologist Relationship Specialty Start Date End Date Roni Dahl MD [address] [place], [place] [phone] PCP - General 07/15/12 Survey Methodologist Relationship Specialty Start Date End Date Roni Dahl MD [address] [place], [place] [phone] PCP - General Family Medicine 04/24/23 Survey Methodologist Relationship Specialty Start Date End Date Roni Dahl MD [address] [place] [id number] PCP - General Family Medicine 04/24/23 Team Status: Inactive Member Role Status Dates Roni Dahl MD Primary Care Provider Active Obie Hylton MD Attending Provider Active Survey Methodologist Relationship Specialty Start Date End Date Roni Dahl MD [address] [place] [address] PCP - General 07/15/12 Team Status: Inactive Member Role Status Dates Roni Dahl MD Primary Care Provider Active Start: September 19, 2023 End: September 19, 2023 DENISHA Cedeño Attending Provider Active Start: September 19, 2023 End: September 19, 2023 Survey Methodologist Relationship Specialty Start Date End Date Roni Dahl MD [address] [place] [address] PCP General 07/15/12 Survey Methodologist Relationship Specialty Start Date End Date Roni Dahl MD [address] [place] [address] [facility] General 07/15/12 Team Status: Inactive Member Role Status Dates Roni Dahl MD Primary Care Provider Active Start: December 19, 2023 End: December 19, 2023 Obie Hylton MD Attending Provider Active St art: December 19, 2023 End: December 19, 2023 Goals (unrecognized section and content) Goals may be documented in a n alternate section FOR RECORDS PERTAINING TO PATIENTS WHO ARE OR HAVE BEEN ENROLLED IN A CHEMICAL DEPENDENCY/SUBSTANCEABUSE PROGRAM, SOME INFORMATION MAY BE OMITTED. This clinical summary was aggregated from multiple sources. Caution should be exercised in using it in the provision of clinical care. This summary normalizes information from multiple sources, and as a consequence, information in this document may materially change the coding, format and clinical context of patient data. In addition, data may be omitted in some cases. CLINICAL DECISIONS SHOULD BE BASED ON THE PRIMARY CLINICAL RECORDS. [employer] [facility]. provides no warranty or guarantee of the accuracy or completeness of information in this document.
[2024-02-03 07:17] VITALS: BP 128/75; PULSE 64; TEMP 36.2; O2SAT 99
[2024-02-03] MEDS: 0.9 % SODIUM CHLORIDE 10 ML SYRINGE - SALINE FLUSH INJ (08:05)
[2024-02-03] MEDS: TRIAMCINOLONE ACETONIDE 40 MG/ML VIAL 80 MG INJ (08:06)
[2024-02-03] MEDS: IOHEXOL 240 MG/ML - 10 ML VIAL INJ (08:06)
[2024-02-03] MEDS: BUPIVACAINE HCL 0.25% PF 25 MG/10 ML VIAL INJ (08:06)
[2024-02-03] MEDS: LIDOCAINE HCL 2% 400 MG/20 ML MDV 15 ML INJ (08:08)
--- NOTE | 2024-02-03 08:08 | W.PM.PROCNOT ---
Date of procedure: 02/03/24 Pre-op diagnosis: Pain due to lumbar stenosis with neurogenic claudication Post-op diagnosis: same as pre-op Procedure: Procedure: Bilateral L5-S1 transforaminal epidural steroid injection Medications: Bupivacaine 0.25% 2cc, lidocaine 2% 1cc, kenalog 80mg The patient was seen and examined in the preoperative holding area.? Informed consent was obtained and placed on the chart.? Patient was brought to the medical procedure unit and placed in the prone position where a timeout was completed verifying the correct patient, procedure site, position, and planned special equipment using sterile aseptic technique.? Under direct fluoroscopic visualization a 25-gauge Quincke tipped spinal needle was advanced at level left L5-S1 to the designated neural foramen where contrast dye was injected to show adequate spread.? There was no evidence of vascular or adverse uptake.? Epidural spread was appreciated.? The above-mentioned injectate was then placed in a 1.5 mL aliquot preceded by negative aspiration.? The needle was removed. The same procedure, at the same level, was completed on the opposite side. ? Patient was taken to the postprocedural recovery area and monitored for an appropriate length of time before found suitable for discharge in the accompaniment of a responsible adult. Anesthesia: Local Surgeon: Trevon Harris Pathology: none sent Condition: stable Disposition: no change
[2024-02-03 08:09] VITALS: BP 168/70; BP 174/67; PULSE 54; PULSE 56; O2SAT 93; O2SAT 95
== END 2024-02-03 08:13 | disposition home or self-care (01) ==
LOC: SURGOUT 06:47
PROVIDERS: PCP Family Medicine; Visit Provider Anesthesiology
DX: M48.062 Spinal stenosis, lumbar region with neurogenic claudication (principal)
CPT/HCPCS: 64483; J0665; J3301; Q9966

== ENCOUNTER 2024-02-17 08:38 | Day surgery (SDC) | payer MEDICARE, SELFPAY ==
[2024-02-17 09:11] VITALS: BP 151/77; PULSE 59; TEMP 36.3; O2SAT 99
[2024-02-17] MEDS: IOHEXOL 240 MG/ML - 10 ML VIAL INJ (09:59)
[2024-02-17] MEDS: BUPIVACAINE HCL 0.25% PF 25 MG/10 ML VIAL 2 ML INJ (09:59)
--- NOTE | 2024-02-17 09:59 | W.PM.PROCNOT ---
Date of procedure: 02/17/24 Pre-op diagnosis: Pain due to right sacroiliitis Post-op diagnosis: same as pre-op Procedure: Procedure: Right sacroiliac joint injection Medications: Bupivacaine 0.25% 3cc, kenalog 40mg After informed consent was obtained, the patient was brought to the medical procedure unit and placed in the prone position, when a timeout was completed verifying correct patient, procedure, site, positioning, implant, and/or special equipment.? The skin overlying the area was prepped and draped in standard sterile fashion using alcohol.? A 25-gauge needle was inserted towards the right sacroiliac joint under direct fluoroscopic imaging.? Needle tip was advanced until the joint was encountered.? We instilled a total of 2 mL of solution.? Postoperatively needles were removed.? The patient tolerated the procedure well without complication.? The patient reported reduction in pain symptoms postoperatively. Anesthesia: Local Surgeon: Trevon Harris Pathology: none sent Condition: stable Disposition: same day
[2024-02-17] MEDS: LIDOCAINE HCL 2% 400 MG/20 ML MDV INJ (10:00)
[2024-02-17] MEDS: TRIAMCINOLONE ACETONIDE 40 MG/ML VIAL INJ (10:00)
[2024-02-17 10:01] VITALS: BP 173/76; BP 181/81; PULSE 58; PULSE 60; O2SAT 97
== END 2024-02-17 10:04 | disposition home or self-care (01) ==
LOC: SURGOUT 08:38
PROVIDERS: PCP Family Medicine; Visit Provider Anesthesiology
DX: M46.1 Sacroiliitis, not elsewhere classified (principal)
CPT/HCPCS: 27096; J0665; J3301; Q9966

== ENCOUNTER 2024-02-27 09:45 | Outpatient (OUT) | payer MEDICARE, SELFPAY ==
--- NOTE | 2024-02-27 10:05 | PM.CN ---
Consult Note: HPI Data of Consult Patient: known to practice within the last 3 years Consult date: 08/26/23 Requesting Physician: Gabrielle Boswell NP Primary Care Provider: RONI YEE Consult Narrative Reason for consult: Low back, bilateral leg pain, neck pain Narrative: 77yof who presents for evaluation. Longstanding low back and bilateral lower extremity pain. Lumbar imaging shows multilevel facet and disc degeneration, as well as several levels of stenosis, particularly at L4-5 and L5-S1. Continues in provider directed home exercises and therapy exercises >6 weeks. Has tried tylenol, NSAIDs, tramadol. Denies adverse med side effects. ow back pain 8/10 ache increasing to 10/10 with standing, walking, twisting, pushing, pulling, stairs, and all activity. Patient reporting frequent falls at home. Patient recently underwent bilateral L5-S1 TFESI and right SIJ injection with >50% improvement ongoing. Pain 6/10 today, recently fall without injury. Patient denies numbness and weakness as well as loss of bowel or bladder. cc:: CC: Gabrielle Boswell NP Review of Systems ROS Status of ROS 10 or more systems reviewed and unremarkable except as noted in history and below Musculoskeletal Reports: back pain; Denies: extremity pain, muscle cramps or muscle weakness [facility] Medical History (Updated 02/27/24 @ 10:08 by Gabrielle Boswell NP) Irregular heartbeat ?I49.9 - Cardiac arrhythmia, unspecified (ICD-10) Sleep apnea ?G47.30 - Sleep apnea, unspecified (ICD-10) Hiatal hernia ?K44.9 - Diaphragmatic hernia without obstruction or gangrene (ICD-10) Acid reflux ?K21.9 - Gastro-esophageal reflux disease without esophagitis (ICD-10) Osteoarthritis ?M19.90 - Unspecified osteoarthritis, unspecified site (ICD-10) TMJ (dislocation of temporomandibular joint) ?S03.00XA - Dislocation of jaw, unspecified side, initial encounter (ICD-10) Hypothyroid ?E03.9 - Hypothyroidism, unspecified (ICD-10) Surgical History History of bladder surgery ?Z98.890 - Other specified postprocedural states (ICD-10) History of knee replacement ?Z96.659 - Presence of unspecified artificial knee joint (ICD-10) History of hip replacement ?Z96.649 - Presence of unspecified artificial hip joint (ICD-10) History of cholecystectomy ?Z90.49 - Acquired absence of other specified parts of digestive tract (ICD-10) History of ankle surgery ?Z98.890 - Other specified postprocedural states (ICD-10) H/O: hysterectomy ?Z90.710 - Acquired absence of both cervix and uterus (ICD-10) H/O hernia repair ?Z98.890 - Other specified postprocedural states (ICD-10) ?Z87.19 - Personal history of other diseases of the digestive system (ICD-10) Meds Home Medications and Allergies Home Medications ?Medication ?Instructions ?Recorded ?Confirmed ?Type aspirin 81 mg capsule 81 mg PO DAILY 08/26/23 02/17/24 History calcium-magnesium 300 mg-300 mg 1 tab PO DAILY 08/26/23 02/17/24 History tablet cholecalciferol (vitamin D3) 50 50 mcg PO BID 08/26/23 02/17/24 History mcg (2,000 unit) capsule citalopram 20 mg tablet 20 mg PO DAILY 08/26/23 02/17/24 History cyanocobalamin (vitamin B-12) 1,000 mcg PO DAILY 08/26/23 02/17/24 History 1,000 mcg capsule docusate sodium 100 mg capsule 100 mg PO DAILY 08/26/23 02/17/24 History estradiol 0.01% (0.1 mg/gram) 1 g vaginal QWEEK 08/26/23 02/17/24 History vaginal cream famotidine 20 mg tablet 20 mg PO DAILY 08/26/23 02/17/24 History fexofenadine 180 mg tablet 180 mg PO DAILY 08/26/23 02/17/24 History fluticasone propionate 50 1 spray intranasal DAILY PRN 08/26/23 02/17/24 History mcg/actuation nasal allergy symptoms spray,suspension levothyroxine 50 mcg capsule 50 mcg PO DAILY 08/26/23 02/17/24 History pantoprazole 20 mg tablet,delayed 20 mg PO DAILY 08/26/23 02/17/24 History release pilocarpine HCl 5 mg tablet 5 mg PO TID 08/26/23 02/17/24 History pravastatin 40 mg tablet 40 mg PO DAILY 08/26/23 02/17/24 History psyllium husk 0.4 gram capsule 0.4 g PO DAILY 08/26/23 02/17/24 History (Metamucil) topiramate 50 mg tablet 50 mg PO DAILY 08/26/23 02/17/24 History apixaban 5 mg tablet (Eliquis) 5 mg PO BID 02/03/24 02/17/24 History diltiazem HCl 120 mg tablet 120 mg PO Q8H 02/03/24 02/17/24 History (Cardizem) Allergies Allergy/AdvReac Type Severity Reaction Status Date / Time latex Allergy Irritable Verified 02/17/24 09:14 morphine Allergy Vomiting Verified 02/17/24 09:14 Sulfa (Sulfonamide Allergy Rash Verified 02/17/24 09:14 Antibiotics) Exam Constitutional Documenting provider has reviewed patient's vital signs: yes Common normals: no apparent distress, oriented x3, healthy appearing, alert and well nourished General appearance: cooperative HENMT Common normals: normocephalic, hearing grossly normal bilaterally and moist oral mucous membranes Head and scalp: normocephalic Eye Common normals: PERRL Pupil: PERRL Neck & C-Spine Common normals: full ROM General: normal visual inspection Chest Common normals: inspection of chest normal Respiratory Common normals: normal respiratory effort, no retractions and no use of accessory muscles Back & Pelvis Lumbar spine/lower back: normal to inspection, ROM limited, pain with ROM and straight leg raise negative bilaterally Sacroiliac joints: SI joints normal Other: pain over L4-S1 facet joints increased pain with bilateral facet loading strength 5/5 in BLE sensation intact BLE negative bilateral SIJ thomas(patricks), gaenslens, thigh thrust, compression test Extremity Common normals: normal to inspection and full ROM Neuro Common normals: oriented x3, CN's II-XII intact bilaterally, moves all extremities, no focal motor deficits, no sensory deficits noted, deep tendon reflexes 2+ bilaterally and gait normal Sensorium/orientation: alert Motor exam: strength 5/5 throughout and no movement abnormalities noted Psych Common normals: mental status grossly normal, thought process normal, cooperative, affect normal, speech normal and activity/motor behavior normal Speech: normal speech Thought process: normal thought process Results Additional Findings Additional findings: If on a controlled substance or opioids, I have checked an OARRS report on this patient and there are no aberrancies noted in the prescribing history.??If on a controlled substance or opioid a drug screen was completed and reviewed within the last year, and if there has not been a drug screen completed we ordered one today to monitor higher risk, state monitored pain medication use. As part of providing excellent, safe, comprehensive care, the following was completed at our patient's visit: 1. A medication reconciliation and review to ensure accurate knowledge of current/active medications, including asking our patients to inform us about any [id number] medications or herbal remedies/nutritional supplements/alternative remedies. 2. A review to specifically ensure our patients have had annual screening for screening for depression, screening for tobacco use, and screening for unhealthy alcohol use. For concerning screenings had a discussion with the patient, provided patient education, and recommended follow-up with primary care provider when appropriate. If patient noted with a risk of falling, they received education on strength, gait, and balance training to prevent future risk of falling. Assessment and Plan Assessment and Plan (1) Lumbar stenosis with neurogenic claudication: Assessment and Plan: >50% improvement ongoing (2) Sacroiliac joint dysfunction of both sides: Assessment and Plan: >50% improvement ongoing (3) Lumbar spondylosis: (4) Frequent falls: Assessment and Plan: i recommended PT assessment and therapy for frequent falls, patient declining. continue to utilize cane, declining walker. patient on eliquis and has notable bruising, encouraged to f/u with PCP. Patient to continue HEP as tolerated. Plan discussed bilateral L4-5 L5-S1 MBB X2 working towards RFA under fluoroscopy for residual axial low back pain, educational handouts provided. declining at this time but can call to schedule. f/u 3 months, sooner if needed
== END 2024-02-27 09:46 | disposition home or self-care (01) ==
LOC: PM 09:45
PROVIDERS: PCP Family Medicine; Visit Provider Nurse Practitioner
DX: M48.062 Spinal stenosis, lumbar region with neurogenic claudication (principal); M53.3 Sacrococcygeal disorders, not elsewhere classified; M47.816 Spondylosis without myelopathy or radiculopathy, lumbar region; R29.6 Repeated falls
CPT/HCPCS: G0463

== ENCOUNTER 2024-03-23 09:42 | Day surgery (SDC) | payer MEDICARE, SELFPAY ==
[2024-03-23 10:17] VITALS: BP 164/78; PULSE 57; TEMP 36.2; O2SAT 99
[2024-03-23 11:01] VITALS: BP 167/78; PULSE 55; O2SAT 99
[2024-03-23 11:02] VITALS: BP 176/77; PULSE 55; O2SAT 99
--- NOTE | 2024-03-23 11:04 | W.PM.PROCNOT ---
Date of procedure: 03/23/24 Pre-op diagnosis: Pain due to lumbar spondylosis without myelopathy Post-op diagnosis: same as pre-op Procedure: Procedure: Bilateral L4-5, L5-S1 medial branch block Medications: Bupivacaine 0.25% 6cc The patient was seen and examined in the preoperative holding area.? An informed consent was obtained and placed on the chart.? The patient was brought to the medical procedure unit and placed in the prone position.? A timeout was completed verifying correct patient, procedure site, positioning, plan, and special equipment.? Using aseptic technique, the needle was placed at left L4. Under direct fluoroscopic visualization a Quincke-tipped spinal needle was advanced to the junction of the superior articulating process with the transverse process at the designated medial branch segment.? Preceded by negative aspiration, the above-mentioned injectate was placed in 1 mL aliquots.? The procedure was repeated at left L5, S1.? The needle was removed and insertion site was covered. The same procedure, at the same levels, was completed on the right side. The patient was taken to the postprocedural recovery area and monitored for an appropriate length of time before found suitable for discharge in the company of a responsible adult. Anesthesia: Local Surgeon: Trevon Harris Pathology: none sent Condition: stable Disposition: no change
[2024-03-23] MEDS: BUPIVACAINE HCL 0.25% PF 25 MG/10 ML VIAL 8 ML INJ (11:05)
[2024-03-23] MEDS: LIDOCAINE HCL 2% 400 MG/20 ML MDV INJ (11:05)
== END 2024-03-23 11:10 | disposition home or self-care (01) ==
LOC: SURGOUT 09:43
PROVIDERS: PCP Family Medicine; Visit Provider Anesthesiology
DX: M47.816 Spondylosis without myelopathy or radiculopathy, lumbar region (principal)
CPT/HCPCS: 64493; 64494; J0665

== ENCOUNTER 2024-03-25 08:14 | Outpatient (OUT) | payer MEDICARE, SELFPAY ==
--- NOTE | 2024-03-25 08:21 | P.CN_ITS ---
Consult Note: HPI Data of Consult Patient: known to practice within the last 3 years Consult date: 08/26/23 Requesting Physician: Gabrielle Boswell NP Primary Care Provider: RONI YEE Consult Narrative Reason for consult: Low back, bilateral leg pain, neck pain Narrative: 77yof who presents for evaluation. Longstanding low back and bilateral lower extremity pain. Lumbar imaging shows multilevel facet and disc degeneration, as well as several levels of stenosis, particularly at L4-5 and L5-S1. Continues in provider directed home exercises and therapy exercises >6 weeks. Has tried tylenol, NSAIDs, tramadol. Denies adverse med side effects. ow back pain 8/10 ache increasing to 10/10 with standing, walking, twisting, pushing, pulling, stairs, and all activity. Patient reporting frequent falls at home. Patient recently underwent bilateral L5-S1 TFESI and right SIJ injection with >50% improvement ongoing. Pain 6/10 today, recently fall without injury. Patient denies numbness and weakness as well as loss of bowel or bladder. underwent bilateral L4-5 L5-S1 MBB #1 with 80% improvement in pain and functional ability immediately following and 8 hours after, pts preop pain 8/10 decreasing to 2/10. cc:: CC: Gabrielle Boswell NP Review of Systems ROS Status of ROS 10 or more systems reviewed and unremark able except as noted in history and below Musculoskeletal Reports: back pain; Denies: extremity pain, muscle cramps or muscle weakness [facility] History Irregular heartbeat ?I49.9 - Cardiac arrhythmia, unspecified (ICD-10) Sleep apnea ?G47.30 - Sleep apnea, unspecified (ICD-10) Hiatal hernia ?K44.9 - Diaphragmatic hernia without obstruction or gangrene (ICD-10) Acid reflux ?K21.9 - Gastro-esophageal reflux disease without esophagitis (ICD-10) Osteoarthritis ?M19.90 - Unspecified osteoarthritis, unspecified site (ICD-10) TMJ (dislocation of temporomandibular joint) ?S03.00XA - Dislocation of jaw, unspecified side, initial encounter (ICD-10) Hypothyroid ?E03.9 - Hypothyroidism, unspecified (ICD-10) Surgical History History of bladder surgery ?Z98.890 - Other specified postprocedural states (ICD-10) History of knee replacement ?Z96.659 - Presence of unspecified artificial knee joint (ICD-10) History of hip replacement ?Z96.649 - Presence of unspecified artificial hip joint (ICD-10) History of cholecystectomy ?Z90.49 - Acquired absence of other specified parts of digestive tract (ICD- 10) History of ankle surgery ?Z98.890 - Other specified postprocedural states (ICD-10) H/O: hysterectomy ?Z90.710 - Acquired absence of both cervix and uterus (ICD-10) H/O hernia repair ?Z98.890 - Other specified postprocedural states (ICD-10) ?Z87.19 - Personal history of other diseases of the digestive system (ICD-10) Meds Home Medications and Allergies Home Medications ?Medication ?Instructions ?Recorded ?Confirmed ?Type aspirin 81 mg capsule 81 mg PO DAILY 08/26/23 03/23/24 History calcium-magnesium 300 mg-300 mg 1 tab PO DAILY 08/26/23 03/23/24 History tablet cholecalciferol (vitamin D3) 50 50 mcg PO BID 08/26/23 03/23/24 History mcg (2,000 unit) capsule citalopram 20 mg tablet 20 mg PO DAILY 08/26/23 03/23/24 History cyanocobalamin (vitamin B-12) 1,000 mcg PO DAILY 08/26/23 03/23/24 History 1,000 mcg capsule docusate sodium 100 mg capsule 100 mg PO DAILY 08/26/23 03/23/24 History estradiol 0.01% (0.1 mg/gram) 1 g vaginal QWEEK 08/26/23 03/23/24 History vaginal cream fexofenadine 180 mg tablet 180 mg PO DAILY 08/26/23 03/23/24 History fluticasone propionate 50 1 spray intranasal DAILY PRN 08/26/23 03/23/24 History mcg/actuation nasal allergy symptoms spray,suspension levothyroxine 50 mcg capsule 50 mcg PO DAILY 08/26/23 03/23/24 History pilocarpine HCl 5 mg tablet 5 mg PO TID 08/26/23 03/23/24 History pravastatin 40 mg tablet 40 mg PO DAILY 08/26/23 03/23/24 History psyllium husk 0.4 gram capsule 0.4 g PO DAILY 08/26/23 03/23/24 History (Metamucil) topiramate 50 mg tablet 50 mg PO DAILY 08/26/23 03/23/24 History apixaban 5 mg tablet (Eliquis) 5 mg PO BID 02/03/24 03/23/24 History diltiazem HCl 120 mg tablet 120 mg PO Q8H 02/03/24 03/23/24 History (Cardizem) diltiazem HCl 120 mg 120 mg PO Q24H 03/25/24 03/25/24 History capsule,extended release 24 hr Allergies Allergy/AdvReac Type Severity Reaction Status Date / Time latex Allergy Irritable Verified 03/23/24 10:23 morphine Allergy Vomiting Verified 03/23/24 10:23 Sulfa (Sulfonamide Allergy Rash Verified 03/23/24 10:23 Antibiotics) Exam Constitutional Documenting provider has reviewed patient's vital signs: yes Common normals: no apparent distress, oriented x3, healthy appearing, alert and well nourished General appearance: cooperative [facility] Common normals: normocephalic, hearing grossly normal bilaterally and moist oral mucous membranes Head and scalp: normocephalic Eye Common normals: PERRL Pupil: PERRL Neck & C-Spine Common normals: full ROM General: normal visual inspection Chest Common normals: inspection of chest normal Respiratory Common normals: normal respiratory effort, no retractions and no use of accessory muscles Back & Pelvis Lumbar spine/lower back: normal to inspection, ROM limited, pain with ROM and straight leg raise negative bilaterally Sacroiliac joints: SI joints normal Other: pain over L4-S1 facet joints increased pain with bilateral facet loading strength 5/5 in BLE sensation intact BLE negative bilateral SIJ thomas(patricks), gaenslens, thigh thrust, compression test Extremity Common normals: normal to inspection and full ROM Neuro Common normals: oriented x3, CN's II-XII intact bilaterally, moves all extremities, no focal motor deficits, no sensory deficits noted and deep tendon reflexes 2+ bilaterally Sensorium/orientation: alert Motor exam: strength 5/5 throughout and no movement abnormalities noted Psych Common normals: mental status grossly normal, thought process normal, cooperative, affect normal, speech normal and activity/motor behavior normal Speech: normal speech Thought process: normal thought process Results Additional Findings Additional findings: If on a controlled substance or opioids, I have checked an OARRS report on this patient and there are no aberrancies noted in the prescribing history.??If on a controlled substance or opioid a drug screen was completed and reviewed within the last year, and if there has not been a drug screen completed we ordered one today to monitor higher risk, state monitored pain medication use. As part of providing excellent, safe, comprehensive care, the following was completed at our patient's visit: 1. A medication reconciliation and review to ensure accurate knowledge of current/active medications, including asking our patients to inform us about any [id number] medications or herbal remedies/nutritional supplements/alternative remedies. 2. A review to specifically ensure our patients have had annual screening for screening for depression, screening for tobacco use, and screening for unhealthy alcohol use. For concerning screenings had a discussion with the patient, provided patient education, and recommended follow-up with primary care provider when appropriate. If patient noted with a risk of falling, they received education on strength, gait, and balance training to prevent future risk of falling. Assessment and Plan Assessment and Plan (1) Lumbar stenosis with neurogenic claudication: Assessment and Plan: >50% improvement ongoing (2) Sacroiliac joint dysfunction of both sides: Assessment and Plan: >50% improvement ongoing (3) Lumbar spondylosis: (4) Frequent falls: Assessment and Plan: i recommended PT assessment and therapy for frequent falls, patient declining. continue to utilize cane, declining walker. patient on eliquis and has notable bruising, encouraged to f/u with PCP. Patient to continue HEP as tolerated. Plan proceed with bilateral L4-5 L5-S1 MBB #2 working towards RFA under fluoroscopy for residual axial low back pain, update lumbar xray to rule out fx after recent fall, pt previously declined updating continue current medications, cannot take NSAIDs due to CKD f/u afer each injection
--- OUTSIDE RECORDS SUMMARY | 2024-03-25 08:23 | XMS_ITS | CCD ---
Author Organization [facility] Inform ion Partnership [facility] Care Team Providers Care Magneto Electrician Name Role Phone JAMISON OWENS Unavailable Unavailable ANDREWS FISH Unavailable Unavailable LANIE PRINCE Unavailable Unavailable ANDREWS FISH Unavailable Unavailable Roni Dahl Primary Care Provider [phone] Roni Dahl Primary Care Provider [phone] Roni Dahl Primary Care Provider [phone] Roni Dahl MD Primary Care Provider Roni Dahl MD Primary Care Provider Roni Dahl MD Primary Care Provider RONI DAHL Primary Care Physician Roni Dahl MD Primary Care Provider MD Roni Dahl Primary Care Provider DENISHA Sanchez Attending Provider MD Daniel Hylton Attending Provider MD Roni Dahl Primary Care Provider MD Yanelis Garcia Attending Provider Yanelis Garcia Unavailable MD Roni Dahl Primary Care Provider MD Daniel Hylton Attending Provider MD Yanelis Garcia Attending Provider MD Roni Dahl Primary Care Provider Roni Dahl MD Primary Care Provider MD Roni Dahl Primary Care Provider MD Yanelis Garcia Attending Provider [phone] MD Roni Dahl Primary Care Provider MD Yanelis Garcia Attending Provider MD Daniel Hylton Attending Provider [phone] Tara Patel Unavailable Roni Dahl MD L Primary Care Provider MD Roni Dahl Primary Care Provider MD Yanelis Garcia Attending Provider [phone] DILIP Vasquez Emergency Provider [phone] MD Mukul Wilson Attending Provider Mukul Wilson Unavailable NABILA, RONI L Primary Care Unavailable YANELIS GUZMAN Referring Unavailable VERHOFF, RONI L Primary Care Unavailable YANELIS GUZMAN Attending Unavailable YANELIS GUZMAN Referring Unavailable VERHOFF, RONI L Primary Care Unavailable VERHOFF, RONI L Primary Care Unavailable TANISHA, VINNIE YOSELIN Referring Unavailable TANISHA, VINNIE YOSELIN Referring Unavailable VERHOFF, RONI L Primary Care Unavailable TANISHA, VINNIE YOSELIN Referring Unavailable VERHOFF, RONI L Primary Care Unavailable TANISHA, VINNIE YOSELIN Referring Unavailable VERHOFF, RONI L Primary Care Unavailable LANIE PRINCE Referring Unavailable XU MARTINEZ Attending Unavailable XU MARTINEZ Attending Unavailable Roni Dahl MD L. Primary Care Provider MARY SUE Attending Unavail able VERHOJOLENE, RONI L. Primary Care Unavailable GRAYSON HUTCHINSON JR. Admitting Unavail able ANDRE ROWE Referring Unavailable VERHOFF, RONI L. Primary Care Unavailable GRAYSON HUTCHINSON JR. Attending Unavail able MD Roni Dahl Primary Care Provider DILIP Vasquez Emergency Provider MD Mukul Wilson Attending Provider [phone] MD Yanelis Garcia Attending Provider [phone] MD Obie Hylton Attending Provider MD Roni Dahl Primary Care Provider DENISHA Sanchez Attending Provider VERHOFF, RONI L Primary Care Unavailable ELGAFY, XU K Referring Unavailable VERHOFF, RONI L Primary Care Unavailable ELGAFY, XU K Referring Unavailable VERHOFF, RONI L Primary Care Unavailable YANELIS GUZMAN Referring Unavailable YANELIS GUZMAN Attending Unavailable VERHOFF, RONI L Primary Care Unavailable VIGESAA, REAGAN S Referring Unavailable JESSICA FARRAR Attending Unavailable VERHOFF, [...] Care Unavailable VIGESAA, REAGAN S Referring Unavailable VIGESAA, REAGAN S Attending Unavailable VERHOFF, RONI L Primary Care [...] Unavailable JOHN PAUL MAYFIELD Referring Unavailable MD Nabila [place] Primary Care Provider [phone] MD Obie Hylton Attending Provider Davion Olivares Referring Unavaila Amarilys Malloyd Venkatal Attending Unavaila ble Marshall, Ricardo Talal Admitting Unavaila ble Davion Olivaresal Attending Unavaila Obie Gonzalez Admitting Unavailable Obie Hylton Attending Unavailable Verhoff, Roni Primary Care Unavailable Yanelis Garcia Admitting Unavailable Yanelis Garcia Attending Unavailable Verhoff, Roni Primary Care Unavailable Verhoff, Roni Primary Care Unavailable Mukul Wilson Admitting Unavailable Mukul Wilson Attending Unavailable Yanelis Garcia Admitting Unavailable Yanelis Garcia Attending Unavailable Verhoff, Roni Primary Care Unavailable Verhoff, Roni Primary Care Unavailable Jesus Vasquez Admitting Unavailable Jesus Vasquez Attending Unavailable Obie Hylton Admitting Unavailable Obie Hylton Attending Unavailable Verhoff, Roni Primary Care Unavailable Verhoff, Roni Primary Care Unavailable Obermeyer Nuvia L Admitting Unavailable Obermeyer Nuvia L Attending Unavailable Obie Hylton Admitting Unavailable Obie Hylton Attending Unavailable Roni Dahl [facility] Unavailable Nabila STEINER, Roni Urvashi [facility] Unavailab Jan STEINER, Trevon Ko Attending Unavailable Nabila STEINER, [facility] Unavailab Jan STEINER, Andrius oK Attending Unavailable Nabila STEINER, Roni [facility] Unavailab Jan STEINER, Andpriscilla Ko Attending Unavailable Kimberly STEINER, Andrius Maikel Attending Unavailable Nabila STEINER, Roni [facility] Unavailab Jan STEINER, Andrius Maikel Attending Unavailable Nabila STEINER, [facility] Unavailab le Allergies Allergy Classification Reported Allergen(s) Allergy Type Date of Onset Reaction(s) Facility hydroCHLOROthiazide (6 sources) hydroCHLOROthiazide Drug Allergy 2019 Rash [facility] Latex (6 sources) Latex Substance Allergy 2010 [facility] NSAIDs (6 sources) Ibuprofen Drug Allergy 2018 Rash [facility] Opioid Agonists (6 sources) Morphine Drug Allergy 2010 Other (See Comments) [facility] Serotonin Reuptake Inhibitors (SSRIs) (6 sources) Escitalopram Drug Allergy 2014 Itching, Rash [facility] Sulfonamides (antibiotic) (12 sources) Sulfonamides (Antibiotic) Drug Allergy 2007 Other (See Comments), Itching [facility] Sulfur (6 sources) Sulfur Drug Allergy 2019 Itching [facility] Triamterene (6 sources) Triamterene Drug Allergy 2018 Rash [facility] WHEAT DEXTRIN (6 sources) WHEAT DEXTRIN Drug Allergy 2010 [facility] (1 source) escitalopram; Translations: [ESCITALOPRAM OXALATE] Drug Allergy 2007 [facility] Repository (20 sources) morphine; Translations: [MORPHINE] Drug Allergy 2007 Other (See Comments), Vomiting (disorder), GI Intolerance [facility] Repository (5 sources) Sulfonamides (Antibiotic); Translations: [SULFA (SULFONAMIDE ANTIBIOTICS)] Propensity to adverse reactions to drug (disorder) 2007 Hives [facility] Repository (1 source) GLUTEN FLOUR; Translations: [GLUTEN FLOUR] Propensity to adverse reactions to food (disorder) 2017 [facility] Repository (20 sources) Escitalopram; Translations: [ESCITALOPRAM] Drug Allergy 2007 Itching, Rash [place] (20 sources) Ibuprofen; Translations: [ibuprofen] Drug Allergy 2018 Rash [place] (20 sources) Latex; Translations: [LATEX] Propensity to adverse reactions to drug 2010 Itching, Eruption of skin (disorder), Rash, Other (See Comments) [place] (20 sources) Sulfonamides (Antibiotic) Propensity to adverse reactions to drug 2007 Other (See Comments) [place] (20 sources) Triamterene; Translations: [triamterene] Drug Allergy 2018 Rash, Eruption of skin (disorder) [place] (20 sources) WHEAT DEXTRIN; Translations: [Wheat] Drug Allergy 2010 Itching [place] (20 sources) hydroCHLOROthiazide; Translations: [HYDROCHLOROTHIAZIDE] Drug Allergy 2018 Rash [place] (20 sources) Sulfacetamide Drug Allergy 2018 Itching [place] (20 sources) Sulfur Drug Allergy 2018 Itching [place] (20 sources) Food Propensity to adverse reactions to drug 2021 [facility] (10 sources) Gluten; Translations: [Glutens] Food allergy Upset stomach (finding) [facility] (9 sources) Sulfamethoxazole; Translations: [sulfamethoxazole] Drug Allergy Eruption of skin (disorder) [facility] (9 sources) Sulfamethoxazole / Trimethoprim; Translations: [sulfamethoxazole-tri methoprim] Drug Allergy Rash [facility] (16 sources) Sulfacetamide / Sulfur Drug Allergy Unknown [employer] Other (12 sources) Sulfonamides (Antibiotic) Propensity to adverse reactions to drug 2007 Other (See Comments) [employer] (7 sources) Naproxen; Translations: [naproxen] Drug Allergy Unknown [facility] (11 sources) Wheat gluten extract Drug Allergy 2022 Nausea And Vomiting [facility] (2 sources) Morphine Drug Allergy Unknown [employer] Other (1 source) Sulfamethoxazole / Trimethoprim; Translations: [SULFAMETHOXAZOLE-TRI METHOPRIM] Drug Allergy 2022 [facility] Repository (1 source) Wheat bran; Translations: [WHEAT BRAN] Propensity to adverse reactions to drug (disorder) 2010 [facility] Repository (1 source) GLUTEN PROTEIN; Translations: [GLUTEN PROTEIN] Propensity to adverse reactions to drug (disorder) 2017 [facility] Repository (1 source) Escitalopram Drug Allergy 2022 [facility] Repository (1 source) hydroCHLOROthiazide Drug Allergy 2022 [facility] Repository (1 source) Ibuprofen Drug Allergy 2022 [facility] Repository (1 source) Latex Drug allergy (disorder) 2022 [facility] Repository (1 source) Sulfacetamide Drug Allergy 2022 [facility] Repository (1 source) Sulfur Drug Allergy 2022 [facility] Repository (1 source) Triamterene Drug Allergy 2022 [facility] Repository (1 source) Sulfonamides (Antibiotic); Translations: [sulfa drugs] Propensity to adverse reactions to drug (disorder) [facility] Repository Medications Current Medications Medication Drug Class(es) [...] for pain Dx: M75.101 Duration: 7 days, [facility]/pharmacy #[id number], 162, cm, 07/17/21 12:14:00 EST, Height/Length [...] Bottle 3 06/18/2017 Active azelastine / fluticasone (15 sources) Corticosteroid, Histamine-1 Receptor Antagonist Start: 01-10-2018 Azelastine-Fluticasone Active 1 SPRAY INTRANASAL Twice daily January 10, 2018 12:00am Start: 01-10-2018 Azelastine-Flu ticasone Active 1 SPRAY INTRANASAL Twice daily January 09, 2018 11:00pm Start: 01-10-2018 Azelastine-Flu ticasone Active 1 SPRAY INTRANASAL Twice daily January 10, 2018 12:00am Mccxwslkav-Zmrqcfqqjuw-StXe (16 sources) Azelastine-Fluti casone-NaCl Active azithromycin 250 mg oral tab let (2 sources) Macrolide Antimicrobial Star t: 07-20 24 End: 11-17 azithromycin (ZITHROMAX Z-PA K) 250 [...] Start: 05-20-2019 take 1 tablet by karthik twice daily Ca Carb-Ca Gluc-Mg Ox-Mg Gluco [...] Magnesium) 500 mg calcium -250 mg Tablet (2 sources) Start: 05-20-2019 take 1 tablet by [...] + D) 500 mg(1,250mg) -200 unit Tablet (13 sources) Start: 12-29-2017 Calcium Carbonate-Vitamin D3 (Calcium [...] Active Start: 05-07-2023 take 1 tablet by [facility] twice daily diclofenac (VOLTAREN) 50 MG [...] Ordered Start: 05-20-2019 take 1 capsule by [facility] once daily Docusate Sodium (Colace) 100 [...] bedtime), # 90 tab(s), Refills(s) 6, Pharmacy: [facility] #[id number], 162, cm, 09/16/23 10:47:00 EDT, Height/Length Dosing, [...] 0 05/30/2019 Active fluticasone 0.05 mg/inh Nasal [place] (8 sources) Start: 03-01-2021 fluticasone 0.05 mg/inh Nasal [place] 50 mcg, Nasal, Daily, Refill(s) 0, Allergy symptoms Start Date: 03/01/21 Status: Ordered gabapentin 300 mg oral capsule (1 source) Anti-epileptic Agent Start: 05-27-2023 gabapentin (NEURONTIN) 300 MG capsule hydroCHLOROthiazide 25 mg / triamterene 37.5 mg oral capsule (20 sources) Potassium-spar ing Diuretic, Thiazide Diuretic Start: 06-27-2022 take 1 capsule by mouth once daily Triamterene-Ina chlorothiazid Active 1 CAP PO Daily June [...] 20 capsule 0 10/14/2021 10/24/2021 Active nystatin 797227 unt/ml oral suspension (20 sources) Polyene Antifungal Start: 10-18-2023 End: 10-28-2023 take 5 mL by mouth four times daily nystatin (MYCOSTATIN) 350603 UNIT/ML suspension Take 5 mLs by mouth 4 times daily for 10 days Swish and swallow 200 mL 0 10/18/2023 10/28/2023 Active Start: 01-30-2023 take 4 mL by mouth f our times daily Nystatin 866691 UNIT/ML 4 ml swish and swallow Mouth/Throat Four times a day for 14 days Jan, Not-Taking Start: 12-20-2022 take 5 mL by mouth f our times daily nystatin (MYCOSTATIN) 852458 UNIT/ML suspension Take 5 mLs by mouth 4 times daily Swish and swallow. 200 mL 0 02/27/2023 Active Start: 11-25-2022 End: 11-25-2022 take 5 mL by mouth four times daily nystatin (MYCOSTATIN) 155397 UNIT/ML suspension Take 5 mLs by mouth 4 times daily Swish and swallow. 200 mL 0 11/25/2022 11/25/2022 Discontinued (DUPLICATE) Start: 08-15-2022 take 5 mL by mouth f our times daily nystatin (MYCOSTATIN) 735729 UNIT/ML suspension take 5 milliliters by mouth four times a day as directed 60 mL 2 08/15/2022 Active Start: 05-29-2022 take 5 mL by mouth f our times daily nystatin (MYCOSTATIN) 099165 UNIT/ML suspension Take 5 mLs by mouth 4 times daily 60 mL 2 05/29/2022 Active Start: 05-29-2022 Nystatin Activ e 1 UNIT MUCOUS MEM Twice daily May 29, 2022 1:00am Start: 02-08-2022 nystatin (MYCO STATIN) 790751 UNIT/GM cream Apply topically 2 times daily Apply topically 2 times daily. 60 g 0 02/08/2022 Active Start: 02-27-2021 take 5 mL by mouth f our times daily nystatin (MYCOSTATIN) 836161 UNIT/ML suspension Take 5 mLs by mouth 4 times daily 150 mL 0 02/27/2021 Active Nystatin 760324 units/g (4 sources) Nystatin 085263 units/g applied topically as directed four times [...] Start: 11-18-2020 take 1 tablet by karthik th every eight hours as needed for nausea [...] day(s), # 180 tab(s), Refills(s) 3, Pharmacy: [facility] [id number], 162, cm, 07/10/22 14:20:00 EST, Height/Length Dosing, [...] Start: 01-30-2023 take 1 tablet by karthik th every twelve hours prednisone 20 MG 1 [...] (Fiber (Psylli um Husk)) 0.4 gram Capsule (13 sources) Start: 05-20-2019 Psyllium Husk (Fiber (Psyllium [...] oral tablet (19 sources) Penicillin-class Antibacterial Start: 01-30-2023 take 1 tablet by mouth every twelve [...] 06/09/2019 Active cephalexin 500 mg oral capsule (15 sources) Cephalosporin Antibacterial Start: 06-03-2019 End: 03-27-2022 take 500 mg by mouth every twelve hours Cephalexin Discontinued 500 MG PO Q12H June 03, 2019 1:00am March 27, 2022 8:11am dexamethasone phosphate 10 mg/ml injectable solution (1 source) Corticosteroid Start: 02-08-2023 End: 02-08-2023 dexamethasone (DECADRON) injection 8 mg ketorolac tromethamine 10 mg oral tablet (15 sources) Nonsteroidal Anti-inflammatory Drug, Cyclooxygenase Inhibitor Start: [...] osteoarthritis, unspecified shoulder] Onset: 2 02-09-2022 Chronic Osteoporosis (1 source) Age-related osteoporosis without current pathological fracture; Translations: [Age-related osteoporosis without current pathological fracture] Onset: 4 Chronic Other acquired deformities (3 sources) Scoliosis, [...] [Polyp of colon] Onset: 4 Episodic Other [employer] infection and poliomyelitis (8 sources) H/O: poliomyelitis [...] Spondylosis; intervertebral disc disorders; other back problems (8 sources) Chronic low back pain; Translations: [Lumbago [...] ALT [Catalytic activity/Vol] 10 U/L Normal 7-52 [facility] Comment on above: Performed By: #### C 3, CH50, C4 #### [facility] , #### ESR, CMP, CBC, ADDONUAPLUS #### [facility] [address] [place] [address] Albumin [Mass/volume] in Ser um or Plasma by Bromocresol green (BCG) dye binding methoOrdered By: Obie Hylton on 12-19-2023 Albumin BCG dye [Mass/Vol] 3.9 g/dL 3.5-5.7 [facility] Alkaline phosphatase [Enzyma tic activity/volume] in Serum or PlasmaOrdered By: Obie Hylton on 12-19-2023 ALP [Catalytic activity/Vol] 56 U/L Normal 34-104 [facility] Comment on above: Result Comment: PERF ORMED BY: [place] [address] PATHOLOGIST CRITICAL CARE CNS MANUEL PABON M.D. Performed By: #### C 3, CH50, C4 #### [facility] , #### ESR, CMP, CBC, ADDONUAPLUS #### [facility] [address] [place] [address] Aspartate aminotransferase [ Enzymatic activity/volume] in Serum or PlasmaOrdered By: Obie Hylton on 12-19-2023 AST [Catalytic activity/Vol] 13 U/L Normal 13-39 [facility] Comment on above: Performed By: #### C 3, CH50, C4 #### [facility] , #### ESR, CMP, CBC, ADDONUAPLUS #### [address] Automated basophil %Ordered By: Obie Hylton on 12-19-2023 Basophils/100 WBC (Bld) 0.3 % Normal . [facility] Comment on above: Performed By: #### C 3, CH50, C4 #### [facility] , #### ESR, CMP, CBC, ADDONUAPLUS #### [address] Automated basophil countOrde red By: Obie Hylton on 12-19-2023 Basophils (Bld) [#/Vol] 0.0 10*3/uL Normal 0.0-0.2 [facility] Comment on above: Performed By: #### C 3, CH50, C4 #### [facility] , #### ESR, CMP, CBC, ADDONUAPLUS #### [address] Automated blood monocyte cou ntOrdered By: Obie Hylton on 12-19-2023 Monocytes (Bld) [#/Vol] 0.5 10*3/uL Normal 0.0-0.8 [facility] Comment on above: Performed By: #### C 3, CH50, C4 #### [facility] , #### ESR, CMP, CBC, ADDONUAPLUS #### [address] Automated eosinophil %Ordere d By: Obie Ramirezrow on 12-19-2023 Eosinophils/100 WBC (Bld) 2.5 % Normal . [facility] Comment on above: Performed By: #### C 3, CH50, C4 #### [facility] , #### ESR, CMP, CBC, ADDONUAPLUS #### [address] Automated eosinophil countOr dered By: Obie Ramirezrow on 12-19-2023 Eosinophils (Bld) [#/Vol] 0.1 10*3/uL Normal 0.0-0.45 [facility] Comment on above: Performed By: #### C 3, CH50, C4 #### [facility] , #### ESR, CMP, CBC, ADDONUAPLUS #### [address] Automated monocyte %Ordered By: Obieradha Hylton on 12-19-2023 Monocytes/100 WBC (Bld) 9.2 % Normal . [facility] Comment on above: Performed By: #### C 3, CH50, C4 #### [facility] , #### ESR, CMP, CBC, ADDONUAPLUS #### [address] Automated neutrophil %Ordere d By: Obieradha Hylton on 12-19-2023 Neutrophils/100 WBC (Bld) 70.1 % Normal . [facility] Comment on above: Performed By: #### C 3, CH50, C4 #### [facility] , #### ESR, CMP, CBC, ADDONUAPLUS #### [address] Bacteria [Presence] in Urine sediment by Light microscopyOrdered By: Obie Hylton on 12-19-2023 Bacteria LM Ql (Urine sed) Rare [HPF] High None Seen [facility] Bilirubin Test strip Ql (U)O rdered By: Obie Hylton on 12-19-2023 Bilirubin Ql (U) Negative Negative [facility] Bilirubin.total [Mass/volume ] in Serum or PlasmaOrdered By: Obie Hylton on 12-19-2023 Bilirubin [Mass/Vol] 0.4 mg/dL Normal 0.3-1.0 [facility] Comment on above: Performed By: #### C 3, CH50, C4 #### [facility] , #### ESR, CMP, CBC, ADDONUAPLUS #### [facility] [address] [place] [address] [place] Calcium [Mass/volume] in Ser um or PlasmaOrdered By: Obie Warner on 12-19-2023 Calcium [Mass/Vol] 9.1 mg/dL Normal 8.6-10.3 [facility] Comment on above: Performed By: #### C 3, CH50, C4 #### [facility] , #### ESR, CMP, CBC, ADDONUAPLUS #### [facility] [address] Carbon dioxide, total [Moles /volume] in Serum or PlasmaOrdered By: Obie Warner on 12-19-2023 CO2 [Moles/Vol] 27.0 mmol/L Normal 21.0-31.0 [facility] Comment on above: Performed By: #### C 3, CH50, C4 #### [facility] , #### ESR, CMP, CBC, ADDONUAPLUS #### [facility] [address] [place] [address] [place] Chloride [Moles/volume] in S liat or PlasmaOrdered By: Obie Warner on 12-19-2023 Chloride [Moles/Vol] 107 mmol/L Normal 98-107 [facility] Comment on above: Performed By: #### C 3, CH50, C4 #### [facility] , #### ESR, CMP, CBC, ADDONUAPLUS #### [facility] [address] Color of Urine by AutoOrdere d By: Obieradha Hylton on 12-19-2023 Color (U) Light-yellow Normal Yellow [facility] Comment on above: Order Comment: Name Collection Type:: Clean-Voided Midstream Performed By: #### C 3, CH50, C4 #### [facility] , #### ESR, CMP, CBC, ADDONUAPLUS #### [address] Complement C3on 12-19-2023 Complement C3 120 mg/dL Normal 82-167 [facility] Comment on above: Result Comment: Perf ormed at: [address] [id number] [employer] Operator: Usman Draper PhD, Phone: [phone] Performed By: #### C 3, CH50, C4 #### [facility] , #### ESR, CMP, CBC, ADDONUAPLUS #### [address] Complement C4on 12-19-2023 Complement C4 22 mg/dL Normal 12-38 [facility] Comment on above: Result Comment: PERF ORMED BY: [place] [address] PATHOLOGIST CRITICAL CARE CNS MANUEL PABON M.D. Performed By: #### C 3, CH50, C4 #### [facility] , #### ESR, CMP, CBC, ADDONUAPLUS #### [address] Complement Total (CH50)on Complement Total (CH50) 57 Normal >[address] [facility] Comment on above: Result [...] determine out of range values. Performed at: [address] [id number] [employer] Operator: Usman Draper PhD, Phone: [phone] PERFORMED BY: [place] [address] PATHOLOGIST CRITICAL CARE CNS MANUEL PABON M.D. Performed By: #### C 3, CH50, C4 #### [facility] , #### ESR, CMP, CBC, ADDONUAPLUS #### [address] Complete Blood Count Auto Di ffon 12-19-2023 Mean Corpuscular HGB Conc 33.8 g/dL Normal 32.0-35.[address] [facility] Comment on above: Performed By: #### C 3, CH50, C4 #### [facility] , #### ESR, CMP, CBC, ADDONUAPLUS #### [address] NRBC% 0.2 /100{WBC} Normal 0-0.5 [facility] Comment on above: Performed By: #### C 3, CH50, C4 #### [facility] , #### ESR, CMP, CBC, ADDONUAPLUS #### [address] Comprehensive Metabolic Pane trevor 12-19-2023 Albumin [Mass/Vol] 3.9 g/dL Normal 3.5-5.7 [facility] Comment on above: Performed By: #### C 3, CH50, C4 #### [facility] , #### ESR, CMP, CBC, ADDONUAPLUS #### [address] GFR/1.73 sq M.predicted MDRD (S/P/Bld) [Vol rate/Area] 47.958 mL/min/{1.73_m2} Normal [facility] Comment on above: Performed By: #### C 3, CH50, C4 #### [facility] , #### ESR, CMP, CBC, ADDONUAPLUS #### [address] Creatinine [Mass/volume] in Serum or PlasmaOrdered By: Obie Hylton on 12-19-2023 Creatinine [Mass/Vol] 1.16 mg/dL Normal 0.60-1.20 [facility] Comment on above: Performed By: #### C 3, CH50, C4 #### [facility] , #### ESR, CMP, CBC, ADDONUAPLUS #### [address] Dipstick and Microscopicon 0 12-19-2023 Bacteria,Urine Rare High None Seen [facility] Comment on above: Order Comment: Name Collection Type:: Clean-Voided Midstream Result Comment: PERF ORMED BY: [place] [address] PATHOLOGIST CRITICAL CARE CNS MANUEL PABON M.D. Performed By: #### C 3, CH50, C4 #### [facility] , #### ESR, CMP, CBC, ADDONUAPLUS #### [address] Bilirubin,Urine Negative Normal Negative [facility] Comment on above: Order Comment: Name Collection Type:: Clean-Voided Midstream Performed By: #### C 3, CH50, C4 #### [facility] , #### ESR, CMP, CBC, ADDONUAPLUS #### [address] Glucose Ql (U) Normal Normal Normal [facility] Comment on above: Order Comment: Name Collection Type:: Clean-Voided Midstream Performed By: #### C 3, CH50, C4 #### [facility] , #### ESR, CMP, CBC, ADDONUAPLUS #### [place] [address] [place] Nitrite,Urine Negative Normal Negative [facility] Comment on above: Order Comment: Name Collection Type:: Clean-Voided Midstream Performed By: #### C 3, CH50, C4 #### [facility] , #### ESR, CMP, CBC, ADDONUAPLUS #### [address] Occult Blood,Urine Negative Normal Negative [facility] Comment on above: Order Comment: Name Collection Type:: Clean-Voided Midstream Performed By: #### C 3, CH50, C4 #### [facility] , #### ESR, CMP, CBC, ADDONUAPLUS #### [address] Protein,Urine Negative Normal Negative [facility] Comment on above: Order Comment: Name Collection Type:: Clean-Voided Midstream Performed By: #### C 3, CH50, C4 #### [facility] , #### ESR, CMP, CBC, ADDONUAPLUS #### [address] RBC,Urine None Seen Normal 0-[address] [facility] Comment on above: Order Comment: Name Collection Type:: Clean-Voided Midstream Performed By: #### C 3, CH50, C4 #### [facility] , #### ESR, CMP, CBC, ADDONUAPLUS #### [address] Specificy [place],Urine 1.020 Normal 1.001-1.[address] [facility] Comment on above: Order Comment: Name Collection Type:: Clean-Voided Midstream Performed By: #### C 3, CH50, C4 #### [facility] , #### ESR, CMP, CBC, ADDONUAPLUS #### [address] Squamous Epithelial Cell,Urine 0-1 Normal 0-[address] [facility] Comment on above: Order Comment: Name Collection Type:: Clean-Voided Midstream Performed By: #### C 3, CH50, C4 #### [facility] , #### ESR, CMP, CBC, ADDONUAPLUS #### [address] Urobilinogen,Urine Normal Normal Normal [facility] Comment on above: Order Comment: Name Collection Type:: Clean-Voided Midstream Performed By: #### C 3, CH50, C4 #### [facility] , #### ESR, CMP, CBC, ADDONUAPLUS #### [address] WBC,Urine None Seen Normal 0-[address] [facility] Comment on above: Order Comment: Name Collection Type:: Clean-Voided Midstream Performed By: #### C 3, CH50, C4 #### [facility] , #### ESR, CMP, CBC, ADDONUAPLUS #### [address] Epithelial cells.squamous [# /area] in Urine sediment by Microscopy high power fieldOrdered By: Obie Hylton on 12-19-2023 Epithelial cells.squamous LM.HPF (Urine sed) [#/Area] 0-1 [HPF] 0-2 [facility] Erythrocyte Sedimentation Ra heather 12-19-2023 ESR (Bld) [Velocity] 12 mm/h Normal 0-[address] [facility] Comment on above: Result Comment: PERF ORMED BY: [place] [address] PATHOLOGIST [facility] MANUEL PABON M.D. Performed By: #### C 3, CH50, C4 #### [facility] , #### ESR, CMP, CBC, ADDONUAPLUS #### [address] Erythrocyte distribution wid th [Ratio] by Automated countOrdered By: Obie Hylton on 12-19-2023 Erythrocyte distribution width (RBC) [Ratio] 15.0 % Normal 11.9-15.3 [facility] Comment on above: Performed By: #### C 3, CH50, C4 #### [facility] , #### ESR, CMP, CBC, ADDONUAPLUS #### [facility] [address] Erythrocyte sedimentation ra te by Photometric methodOrdered By: Obie Hylton on 12-19-2023 ESR Photometric method (Bld) [Velocity] 12 mm/hr 0-29 [facility] Erythrocytes [#/area] in Uri ne sediment by Microscopy high power fieldOrdered By: Obie Hylotn on 12-19-2023 RBC LM.HPF (Urine sed) [#/Area] None seen [HPF] 0-4 [facility] Erythrocytes [#/volume] in B lood by Automated countOrdered By: Obie Hylton on 12-19-2023 RBC (Bld) [#/Vol] 3.56 10*6/uL Low 3.60-5.00 [facility] Comment on above: Performed By: #### C 3, CH50, C4 #### [facility] , #### ESR, CMP, CBC, ADDONUAPLUS #### [facility] [address] Glucose [Mass/volume] in Ser um or PlasmaOrdered By: Obie Hylton on 12-19-2023 Glucose [Mass/Vol] 92 mg/dL Normal 70-100 [facility] Comment on above: ADA recommended refe rence rangeRandom Glucose Reference Range is dependent on time and content of last meal. Glucose of more than 200 mg/dL in a nonstressed, ambulatory subject supports the diagnosis of Diabetes Mellitus. Result Comment: [place] om Glucose Reference Range is dependent on time and content of last meal. Glucose of more than 200 mg/dL in a nonstressed, ambulatory subject supports the diagnosis of Diabetes Mellitus. ADA recommended reference range Performed By: #### C 3, CH50, C4 #### [facility] , #### ESR, CMP, CBC, ADDONUAPLUS #### [facility] [address] [place] [address] [place] Glucose [Mass/volume] in Uri ne by Test stripOrdered By: Obie Hylton on 12-19-2023 Glucose Test strip (U) [Mass/Vol] Normal mg/dL Normal [facility] Hematocrit [Volume Fraction] of Blood by Automated countOrdered By: Obie Hylton on 12-19-2023 Hematocrit (Bld) [Volume fraction] 33.2 % Low 34.0-46.4 [facility] Comment on above: Performed By: #### C 3, CH50, C4 #### [facility] , #### ESR, CMP, CBC, ADDONUAPLUS #### [address] Hemoglobin Test strip Ql (U) Ordered By: Obie Hylton on 12-19-2023 Hemoglobin Ql (U) Negative Negative [facility] Hemoglobin [Mass/volume] in BloodOrdered By: Obie Hylton on 12-19-2023 Hemoglobin (Bld) [Mass/Vol] 11.2 g/dL Low 11.8-15.4 [facility] Comment on above: Performed By: #### C 3, CH50, C4 #### [facility] , #### ESR, CMP, CBC, ADDONUAPLUS #### [address] Ketones [Presence] in Urine by Test stripOrdered By: Obie Hylton on 12-19-2023 Ketones Ql (U) Negative Normal Negative [facility] Comment on above: Order Comment: Name Collection Type:: Clean-Voided Midstream Performed By: #### C 3, CH50, C4 #### [facility] , #### ESR, CMP, CBC, ADDONUAPLUS #### [address] Leukocyte esterase [Presence ] in Urine by Test stripOrdered By: Obie Hylton on 12-19-2023 Leukocyte esterase Test strip Ql (U) Negative Normal Negative [facility] Comment on above: Order Comment: Name Collection Type:: Clean-Voided Midstream Performed By: #### C 3, CH50, C4 #### [facility] , #### ESR, CMP, CBC, ADDONUAPLUS #### [facility] [address] [place] [address] [place] Leukocytes [#/area] in Urine sediment by Microscopy high power fieldOrdered By: Obierdaha Hylton on 12-19-2023 WBC LM.HPF (Urine sed) [#/Area] None seen [HPF] 0-4 [facility] Leukocytes [#/volume] correc pepito for nucleated erythrocytes in Blood by Automated counOrdered By: Obie Warner on 12-19-2023 WBC corrected for nucl RBC Auto (Bld) [#/Vol] 5.9 10*3/uL 3.8-11.6 [facility] Leukocytes [#/volume] in Blo od by Automated countOrdered By: Obieradha Hylton on 12-19-2023 WBC (Bld) [#/Vol] 5.9 10*3/uL Normal 3.8-11.6 [facility] Comment on above: Performed By: #### C 3, CH50, C4 #### [facility] , #### ESR, CMP, CBC, ADDONUAPLUS #### [facility] [address] [place] [address] [place] Lymphocytes [#/volume] in Bl ood by Automated countOrdered By: Obie Hylton on 12-19-2023 Lymphocytes (Bld) [#/Vol] 1.1 10*3/uL Normal 1.00-4.8 [facility] Comment on above: Performed By: #### C 3, CH50, C4 #### [facility] , #### ESR, CMP, CBC, ADDONUAPLUS #### [facility] [address] [place] [address] [place] Lymphocytes/100 leukocytes i n Blood by Automated countOrdered By: Obie Hylton on 12-19-2023 Lymphocytes/100 WBC (Bld) 17.9 % Normal . [facility] Comment on above: Performed By: #### C 3, CH50, C4 #### [facility] , #### ESR, CMP, CBC, ADDONUAPLUS #### [facility] [address] [place] [address] MCH [Entitic mass] by Automa pepito countOrdered By: Obie Ramirezrow on 12-19-2023 MCH (RBC) [Entitic mass] 31.5 pg Normal 24.7-34.3 [facility] Comment on above: Performed By: #### C 3, CH50, C4 #### [facility] , #### ESR, CMP, CBC, ADDONUAPLUS #### [facility] [address] [place] [address] MCHC Auto (RBC) [Mass/Vol]Or dered By: Obie Warner on 12-19-2023 MCHC (RBC) [Mass/Vol] 33.8 g/dL 32.0-35.0 [facility] MCV [Entitic volume] by Auto mated countOrdered By: Obie Ramirezrow on 12-19-2023 MCV (RBC) [Entitic vol] 93.2 fL Normal 80-100 [facility] Comment on above: Performed By: #### C 3, CH50, C4 #### [facility] , #### ESR, CMP, CBC, ADDONUAPLUS #### [facility] [address] [place] [address] Neutrophils [#/volume] in Bl ood by Automated countOrdered By: Obie Warner on 12-19-2023 Neutrophils (Bld) [#/Vol] 4.1 10*3/uL Normal 1.8-7.7 [facility] Comment on above: Performed By: #### C 3, CH50, C4 #### [facility] , #### ESR, CMP, CBC, ADDONUAPLUS #### [facility] [address] [place] [address] Nitrite Test strip Ql (U)Ord ered By: Obie Ramirezrow on 12-19-2023 Nitrite Ql (U) Negative Negative [facility] No Panel InformationOrdered By: Obie Hylton on 12-19-2023 Estimated GFR (CKD-EPI) 47.958 mL/Min [facility] Creatinine Clearance (Chem N/A [facility] Total Complement (CH50) 57 U/mL >41 [facility] Comment on above: Age Male Female 1 - 30 days [...] table above to determine out of range values.Performed at: [facility] [address] [id number] Director: Usman Draper PhD, Phone: [phone] Nucleated erythrocytes [Pres ence] in Blood by Automated countOrdered By: Obie Hylton on 12-19-2023 Nucleated RBC Auto Ql (Bld) 0.2 /100{WBC} 0-0.5 [facility] Platelet mean volume [Entiti c volume] in Blood by Automated countOrdered By: Obie Hylton on 12-19-2023 Platelet mean volume (Bld) [Entitic vol] 8.7 fL Normal 6.3-10.7 [facility] Comment on above: Performed By: #### C 3, CH50, C4 #### [facility] , #### ESR, CMP, CBC, ADDONUAPLUS #### [facility] [address] [place] [address] [place] Platelets [#/volume] in Bloo d by Automated countOrdered By: Obie Hylton on 12-19-2023 Platelets (Bld) [#/Vol] 201 10*3/uL Normal 150-450 [facility] Comment on above: Performed By: #### C 3, CH50, C4 #### [facility] , #### ESR, CMP, CBC, ADDONUAPLUS #### [facility] [address] [place] [address] [place] Potassium [Moles/volume] in Serum or PlasmaOrdered By: Obie Hylton on 12-19-2023 Potassium [Moles/Vol] 4.3 mmol/L Normal 3.5-5.1 [facility] Comment on above: Performed By: #### C 3, CH50, C4 #### [facility] , #### ESR, CMP, CBC, ADDONUAPLUS #### [address] Protein Test strip (U) [Mass /Vol]Ordered By: Obie Hylton on 12-19-2023 Protein (U) [Mass/Vol] Negative Negative [facility] Protein [Mass/volume] in Ser um or PlasmaOrdered By: Obie Hylton on 12-19-2023 Protein [Mass/Vol] 5.9 g/dL Low 6.4-8.9 [facility] Comment on above: Performed By: #### C 3, CH50, C4 #### [facility] , #### ESR, CMP, CBC, ADDONUAPLUS #### [address] Serum globulin measurement b y calculation (mass/volume)Ordered By: Obie Hylton on 12-19-2023 Globulin (S) [Mass/Vol] 2.0 g/dL Normal [facility] Comment on above: Performed By: #### C 3, CH50, C4 #### [facility] , #### ESR, CMP, CBC, ADDONUAPLUS #### [address] Serum or plasma albumin/glob ulin mass ratioOrdered By: Obie Hylton on 12-19-2023 Albumin/Globulin [Mass ratio] 2.0 {ratio} [facility] Comment on above: Performed By: #### C 3, CH50, C4 #### [facility] , #### ESR, CMP, CBC, ADDONUAPLUS #### [address] Serum or plasma anion gap de terminationOrdered By: Obie Hylton on 12-19-2023 Anion gap [Moles/Vol] 9.3 mmol/L Normal 6.0-15.0 [facility] Comment on above: Performed By: #### C 3, CH50, C4 #### [facility] , #### ESR, CMP, CBC, ADDONUAPLUS #### [facility] [address] [place] [address] Serum or plasma complement C 3 measurement (mass/volume)Ordered By: Obie Hylton on 12-19-2023 Complement C3 [Mass/Vol] 120 mg/dL 82-167 [facility] Comment on above: Performed at: - [address] [id number] Director: Usman Draper PhD, Phone: [phone] Serum or plasma complement C 4 measurement (mass/volume)Ordered By: Obie Hylton on 12-19-2023 Complement C4 [Mass/Vol] 22 mg/dL 12-38 [facility] Sodium [Moles/volume] in Ser um or PlasmaOrdered By: Obie Hylton on 12-19-2023 Sodium [Moles/Vol] 139 mmol/L Normal 136-145 [facility] Comment on above: Performed By: #### C 3, CH50, C4 #### [facility] , #### ESR, CMP, CBC, ADDONUAPLUS #### [address] Specific gravity Test strip (U) [Rel density]Ordered By: Obie Hylton on 12-19-2023 Specific gravity (U) [Rel density] 1.020 1.001-1.03 0 [facility] Urea nitrogen [Mass/volume] in Serum or PlasmaOrdered By: Obie Hylton on 12-19-2023 Urea nitrogen [Mass/Vol] 33 mg/dL High 7-25 [facility] Comment on above: Performed By: #### C 3, CH50, C4 #### [facility] , #### ESR, CMP, CBC, ADDONUAPLUS #### [address] Urine appearanceOrdered By: Obie Hylton on 12-19-2023 Appearance (U) Clear Normal Clear [facility] Comment on above: Order Comment: Name Collection Type:: Clean-Voided Midstream Performed By: #### C 3, CH50, C4 #### [facility] , #### ESR, CMP, CBC, ADDONUAPLUS #### [facility] [address] Urobilinogen Test strip (U) [Mass/Vol]Ordered By: Obie Ramirezrow on 12-19-2023 Urobilinogen (U) [Mass/Vol] Normal mg/dL Normal [facility] pH of Urine by Test stripOrd ered By: Obie Ramirezrow on 12-19-2023 pH (U) 5.5 [pH] Normal 5.0-9.0 [facility] Comment on above: Order Comment: Name Collection Type:: Clean-Voided Midstream Performed By: #### C 3, CH50, C4 #### [facility] , #### ESR, CMP, CBC, ADDONUAPLUS #### [facility] [address] Basic Metabolic Profon 12-11 Anion gap [Moles/Vol] 11 mmol/L Normal 03-[address] [facility] Comment on above: Performed By: #### B MP, TROPI, CBC, TSH #### [facility] [address] [place] [address] [employer] Operator: Angelito Muir MD BUN/CRE Ratio 19 Normal 03-20 [facility] Comment on above: Performed By: #### B MP, TROPI, CBC, TSH #### [facility] [address] [place] [id number] [employer]: Angelito Muir MD Calcium [Mass/Vol] 9.1 mg/dL Normal 8.6-10.4 [facility] Comment on above: Performed By: #### B MP, TROPI, CBC, TSH #### [facility] [address] [place], [place] [id number] [employer]: Angelito Muir MD Chloride [Moles/Vol] 104 mmol/L Normal 98-107 [facility] Comment on above: Performed By: #### B MP, TROPI, CBC, TSH #### [facility] [address] [place], [place] [id number] [employer] Operator: Angelito Muir MD CO2 [Moles/Vol] 22 mmol/L Normal 20-31 [facility] Comment on above: Performed By: #### B MP, TROPI, CBC, TSH #### [facility] [address] [place] [id number] [employer]: Angelito Muir MD Creatinine [Mass/Vol] 1.3 mg/dL High 0.5-0.[address] [facility] Comment on above: Performed By: #### B MP, TROPI, CBC, TSH #### [facility] [address] [place] [address] [employer] Operator: Angelito Muir MD GFR/1.73 sq M.predicted among non-blacks MDRD (S/P/Bld) [Vol rate/Area] 42 mL/min/{1.73_m2} Low >60 [facility] Comment on above: Result Comment: These results [...] #### B MP, TROPI, CBC, TSH #### [facility] [address] [place] [address] [employer] Operator: Angelito Muir MD Glucose [Mass/Vol] 88 mg/dL Normal 70-99 [facility] Comment on above: Performed By: #### B MP, TROPI, CBC, TSH #### [facility] [address] [place], [place] [id number] [employer] Operator: Angelito Muir MD Potassium [Moles/Vol] 4.3 mmol/L Normal 3.7-5.[address] [facility] Comment on above: Performed By: #### B MP, TROPI, CBC, TSH #### [facility] [address] [place], [place] [id number] [employer] Operator: Angelito Muir MD Sodium [Moles/Vol] 137 mmol/L Normal 135-144 [facility] Comment on above: Performed By: #### B MP, TROPI, CBC, TSH #### [facility] [address] [place], [place] [id number] [employer] Operator: Angelito Muir MD Urea nitrogen [Mass/Vol] 25 mg/dL High 8-23 [facility] Comment on above: Performed By: #### B MP, TROPI, CBC, TSH #### [facility] [address] [place], [place] [id number] [employer]: Angelito Muir MD Basic Metabolic Panelon 05-1 Anion gap [Moles/Vol] 13 mmol/L 9 - 17 mmol/L [facility] Calcium [Mass/Vol] 9.1 mg/dL 8.6 - 10. 4 mg/dL [facility] Chloride [Moles/Vol] 104 mmol/L 98 - 10 7 mmol/L [facility] CO2 [Moles/Vol] 20 mmol/L 20 - 31 mmol/L [facility] Creatinine [Mass/Vol] 1.1 mg/dL High 0.5 - 0.9 mg/dL [facility] Est, Glom Filt Rate 51 Low - [facility] Comment on above: These results are not [...] 153 mg/dL High 70 - 99 mg/dL [facility] Interpretation and review of laboratory results Abnormal [facility] Potassium [Moles/Vol] 3.3 mmol/L Low 3.7 - 5.3 mmol/L [facility] Sodium [Moles/Vol] 137 mmol/L 135 - 144 mmol/L [facility] Urea nitrogen [Mass/Vol] 26 mg/dL High 8 - 23 mg/dL [facility] Urea nitrogen/Creatinine [Mass ratio] 24 mg/mg High 9 - 20 [facility] Basic Metabolic Profon 11-13 Anion gap [Moles/Vol] 13 mmol/L Normal - [facility] Comment on above: Performed By: #### B MP, TROPI, CBC, TSH #### [facility] [address] [place], [place] [id number] [employer] Operator: Angelito Muir MD BUN/CRE Ratio 24 High - [facility] Comment on above: Performed By: #### B MP, TROPI, CBC, TSH #### [facility] [address] [place], [place] [id number] [employer] Operator: Angelito Muir MD Calcium [Mass/Vol] 9.1 mg/dL Normal 8.6-10.4 [facility] Comment on above: Performed By: #### B MP, TROPI, CBC, TSH #### [facility] [address] [place], [place] [id number] [employer] Operator: Angelito Muir MD Chloride [Moles/Vol] 104 mmol/L Normal 98-107 [facility] Comment on above: Performed By: #### B MP, TROPI, CBC, TSH #### [facility] [address] [place] [address] [employer] Operator: Angelito Muir MD CO2 [Moles/Vol] 20 mmol/L Normal 20-31 [facility] Comment on above: Performed By: #### B MP, TROPI, CBC, TSH #### [facility] [address] [place], [place] [id number] [employer] Operator: Angelito Muri MD Creatinine [Mass/Vol] 1.1 mg/dL High 0.5-0.[address] [facility] Comment on above: Performed By: #### B MP, TROPI, CBC, TSH #### [facility] [address] [place], [place] [id number] [employer] Operator: Angelito Muir MD GFR/1.73 sq M.predicted among non-blacks MDRD (S/P/Bld) [Vol rate/Area] 51 mL/min/{1.73_m2} Low >60 [facility] Comment on above: Result Comment: These results [...] #### B MP, TROPI, CBC, TSH #### [facility] [address] [place] [address] [employer] Operator: Angelito Muir MD Glucose [Mass/Vol] 153 mg/dL High 70-99 [facility] Comment on above: Performed By: #### B MP, TROPI, CBC, TSH #### [facility] [address] [place], [place] [id number] [employer] Operator: Angelito Muir MD Potassium [Moles/Vol] 3.3 mmol/L Low 3.7-5.[address] [facility] Comment on above: Performed By: #### B MP, TROPI, CBC, TSH #### [facility] [address] [place] [address] [employer] Operator: Angelito Muir MD Sodium [Moles/Vol] 137 mmol/L Normal 135-144 [facility] Comment on above: Performed By: #### B MP, TROPI, CBC, TSH #### [facility] [address] [place] [address] [employer] Operator: Angelito Muir MD Urea nitrogen [Mass/Vol] 26 mg/dL High 8-23 [facility] Comment on above: Performed By: #### B MP, TROPI, CBC, TSH #### [facility] [address] [place] [address] [employer] Operator: Angelito Muir MD CBCon 11-14-2023 Erythrocyte distribution width (RBC) [Ratio] 14.7 % 12.1 - 15.2 % [facility] Hematocrit (Bld) [Volume fraction] 37.0 % 36.0 - 46.0 % [facility] Hemoglobin (Bld) [Mass/Vol] 12.2 g/dL 12.0 - 16.0 g/dL [facility] Interpretation and review of laboratory results Abnormal [facility] MCH (RBC) [Entitic mass] 31.1 pg 26.0 - 34.0 pg [facility] MCHC (RBC) [Mass/Vol] 33.0 g/dL 31.0 - 37.0 g/dL [facility] MCV (RBC) [Entitic vol] 94.4 fL 80.0 - 100.0 fL [facility] Platelet mean volume (Bld) [Entitic vol] 10.3 fL 6.0 - 12.0 fL [facility] Platelets (Bld) [#/Vol] 179 10*3/uL [facility] RBC (Bld) [#/Vol] 3.92 10*6/uL Low 4.00 - 5.20 m/uL [facility] WBC other (Bld) [#/Vol] 4.3 [facility] Erythrocyte distribution width (RBC) [Ratio] 14.7 % Normal 12.1-15.2 [facility] Comment on above: Performed By: #### B MP, TROPI, CBC, TSH #### [facility] [address] [place] [address] [employer] Operator: Angelito Muir MD Hematocrit (Bld) [Volume fraction] 37.0 % Normal 36.0-46.0 [facility] Comment on above: Performed By: #### B MP, TROPI, CBC, TSH #### [facility] [address] [place] [id number] [employer] Operator: Angelito Muir MD Hemoglobin (Bld) [Mass/Vol] 12.2 g/dL Normal 12.0-16.0 [facility] Comment on above: Performed By: #### B MP, TROPI, CBC, TSH #### [facility] [address] [place] [id number] [employer] Operator: Angelito Muir MD MCH (RBC) [Entitic mass] 31.1 pg Normal 26.0-34.0 [facility] Comment on above: Performed By: #### B MP, TROPI, CBC, TSH #### [facility] [address] [place] [address] [employer] Operator: Angelito Muir MD MCHC (RBC) [Mass/Vol] 33.0 g/dL Normal 31.0-37.[address] [facility] Comment on above: Performed By: #### B MP, TROPI, CBC, TSH #### [facility] [address] [place] [address] [employer] Operator: Angelito Muir MD MCV (RBC) [Entitic vol] 94.4 fL Normal 80.0-100.0 [facility] Comment on above: Performed By: #### B MP, TROPI, CBC, TSH #### [facility] [address] [place] [address] [employer] Operator: Angelito Muir MD Platelet mean volume (Bld) [Entitic vol] 10.3 fL Normal 6.0-12.0 [facility] Comment on above: Performed By: #### B MP, TROPI, CBC, TSH #### [facility] [address] [place], [place] [phone] ([phone]) [employer] Operator: Angelito Muir MD Platelets (Bld) [#/Vol] 179 10*3/uL Normal 140-450 [facility] Comment on above: Performed By: #### B MP, TROPI, CBC, TSH #### [facility] [address] [place], [place] [phone] [employer] Operator: Angelito Muir MD RBC (Bld) [#/Vol] 3.92 10*6/uL Low 4.00-5.20 [facility] Comment on above: Performed By: #### B MP, TROPI, CBC, TSH #### [facility] [address] [place], [place] [phone] [employer] Operator: Angelito Muir MD WBC (Bld) [#/Vol] 4.3 10*3/uL Normal 3.5-11.0 [facility] Comment on above: Performed By: #### B MP, TROPI, CBC, TSH #### [facility] [address] [place], [place] [phone] [employer] Operator: Angelito Muir MD No Panel Informationon 11-13 [facility] TSHon 11-14-2023 TSH Qn 1.80 m[IU]/L [facility] Thyroid Stim. Horm.on 2023 Thyroid Stim. Horm. 1.80 uIU/mL Normal 0.30-5.00 [facility] Comment on above: Performed By: #### B MP, TROPI, CBC, TSH #### [facility] [address] [place], [place] [id number] [employer] Operator: Angelito Muir MD Troponinon 11-14-2023 Troponin I.cardiac High sensitivity method [Mass/Vol] 10 ng/L 0 - 14 ng/L [facility] Comment on above: High Sensitivity Tro ponin values cannot be compared with other Troponin methodologies. Troponin, High Sens 10 ng/L Normal 0-14 [facility] Comment on above: Result Comment: High Sensitivity Troponin values cannot be compared with other Troponin methodologies. Performed By: #### B MP, TROPI, CBC, TSH #### [facility] [address] [place] [address] [employer] Operator: Angelito Muir MD CBC with Auto Differentialon 10-23-2023 Absolute Bands 0.18 [facility] Bands 4 % 0 - 10 % [facility] Basophils (Bld) [#/Vol] [facility] Basophils/100 WBC (Bld) 0 - 2 % [facility] Eosinophils % 0 - 5 % [facility] Eosinophils (Bld) [#/Vol] [facility] Erythrocyte distribution width (RBC) [Ratio] 14.7 % 12.1 - 15.2 % [facility] Hematocrit (Bld) [Volume fraction] 39.4 % 36.0 - 46.0 % [facility] Hemoglobin (Bld) [Mass/Vol] 12.9 g/dL 12.0 - 16.0 g/dL [facility] Immature granulocytes (Bld) [#/Vol] [facility] Immature granulocytes/100 WBC (Bld) 0 % [facility] Interpretation and review of laboratory results Abnormal [facility] Lymphocytes/100 WBC (Bld) 5 % Low 15 - 40 % [facility] Lymphocytes/100 WBC (Bld) 0.23 % Low [facility] MCH (RBC) [Entitic mass] 30.6 pg 26.0 - 34.0 pg [facility] MCHC (RBC) [Mass/Vol] 32.7 g/dL 31.0 - 37.0 g/dL [facility] MCV (RBC) [Entitic vol] 93.4 fL 80.0 - 100.0 fL [facility] Monocytes/100 WBC (Bld) 6 % 4 - 8 % [facility] Monocytes/100 WBC (Bld) 0.27 % [facility] Morphology Igor (Bld) [Interp] Platelet morphology normal. [facility] Morphology Igor (Bld) [Interp] RBC morphology normal. [facility] Morphology Igor (Bld) [Interp] Manual Differential Performed [facility] Neutrophils/100 WBC (Bld) 85 % High 47 - 75 % [facility] Platelet mean volume (Bld) [Entitic vol] 9.4 fL 6.0 - 12.0 fL [facility] Platelets (Bld) [#/Vol] 152 10*3/uL [facility] RBC (Bld) [#/Vol] 4.22 10*6/uL 4.00 - 5.20 m/uL [facility] Segmented neutrophils/100 WBC (Bld) 3.82 % [facility] WBC other (Bld) [#/Vol] 4.5 [facility] CBC with Diffon 10-23-2023 Abs. Bands 0.18 k/uL Normal 0.0-1.0 [facility] Comment on above: Performed By: #### B MP, TROPI, CBC, TSH #### [facility] [address] [place] [address] [employer]: Angelito Muir MD Abs. Basophil Normal 0.0-0.2 [facility] Comment on above: Performed By: #### B MP, TROPI, CBC, TSH #### [facility] [address] [place] [id number] [employer]: Angelito Muir MD Abs. Eosinophil Normal 0.0-0.4 [facility] Comment on above: Performed By: #### B MP, TROPI, CBC, TSH #### [facility] [address] [place] [id number] [employer]: Angelito Muir MD Abs.Imm.Granulocyte Normal 0.00-0.30 [facility] Comment on above: Performed By: #### B MP, TROPI, CBC, TSH #### [facility] [address] [place] [address] [employer]: Angelito Muir MD Abs.Neutrophil (Seg) 3.82 k/uL Normal 2.5-7.0 [facility] Comment on above: Performed By: #### B MP, TROPI, CBC, TSH #### [facility] [address] [place] [address] [employer]: Angelito Muir MD Bands 4 % Normal 0-10 [facility] Comment on above: Performed By: #### B MP, TROPI, CBC, TSH #### [facility] [address] [place] [address] [employer]: Angelito Muir MD Basophil Normal 0-2 [facility] Comment on above: Performed By: #### B MP, TROPI, CBC, TSH #### [facility] [address] [place] [address] [employer]: Angelito Muir MD Eosinophil Normal 0-5 [facility] Comment on above: Performed By: #### B MP, TROPI, CBC, TSH #### [facility] [address] [place] [address] [employer] Operator: Angelito Muir MD Immature Granulocyte Normal 0 [facility] Comment on above: Performed By: #### B MP, TROPI, CBC, TSH #### [facility] [address] [place] [address] [employer]: Angelito Muir MD Lymphocytes (Bld) [#/Vol] 0.23 10*3/uL Low 1.0-4.8 [facility] Comment on above: Performed By: #### B MP, TROPI, CBC, TSH #### [facility] [address] [place] [address] [employer]: Angelito Muir MD Lymphocytes/100 WBC (Bld) 5 % Low 15-40 [facility] Comment on above: Performed By: #### B MP, TROPI, CBC, TSH #### [facility] [address] [place] [address] [employer] Operator: Angelito Muir MD Monocytes (Bld) [#/Vol] 0.27 10*3/uL Normal 0.0-1.0 [facility] Comment on above: Performed By: #### B MP, TROPI, CBC, TSH #### [facility] [address] [place] [address] [employer]: Angelito Muir MD Monocytes/100 WBC (Bld) 6 % Normal 4-8 [facility] Comment on above: Performed By: #### B MP, TROPI, CBC, TSH #### [facility] [address] [place] [address] [employer] Operator: Angelito Muir MD Morphology Igor (Bld) [Interp] Platelet morphology normal. Normal [facility] Comment on above: Result Comment: RBC morphology normal. Manual Differential Performed Performed By: #### B MP, TROPI, CBC, TSH #### [facility] [address] [place] [address] [employer]: Angelito Muir MD Neutrophil (Seg) 85 % High 47-75 [facility] Comment on above: Performed By: #### B MP, TROPI, CBC, TSH #### [facility] [address] [place] [address] [employer]: Angelito Muir MD Erythrocyte distribution width (RBC) [Ratio] 14.7 % Normal 12.1-15.2 [facility] Comment on above: Performed By: #### B MP, TROPI, CBC, TSH #### [facility] [address] [place] [address] [employer]: Angelito Muir MD Hematocrit (Bld) [Volume fraction] 39.4 % Normal 36.0-46.0 [facility] Comment on above: Performed By: #### B MP, TROPI, CBC, TSH #### [facility] [address] [place] [address] [employer]: Angelito Muir MD Hemoglobin (Bld) [Mass/Vol] 12.9 g/dL Normal 12.0-16.0 [facility] Comment on above: Performed By: #### B MP, TROPI, CBC, TSH #### [facility] [address] [place] [address] [employer]: Angelito Muir MD MCH (RBC) [Entitic mass] 30.6 pg Normal 26.0-34.0 [facility] Comment on above: Performed By: #### B MP, TROPI, CBC, TSH #### [facility] [address] [place] [address] [employer] Operator: Angelito Muir MD MCHC (RBC) [Mass/Vol] 32.7 g/dL Normal 31.0-37.[address] [facility] Comment on above: Performed By: #### B MP, TROPI, CBC, TSH #### [facility] [address] [place] [address] [employer] Operator: Angelito Muir MD MCV (RBC) [Entitic vol] 93.4 fL Normal 80.0-100.0 [facility] Comment on above: Performed By: #### B MP, TROPI, CBC, TSH #### [facility] [address] [place] [address] [employer] Operator: Angelito Muir MD Platelet mean volume (Bld) [Entitic vol] 9.4 fL Normal 6.0-12.0 [facility] Comment on above: Performed By: #### B MP, TROPI, CBC, TSH #### [facility] [address] [place], [place] [id number] [employer]: Angelito Muir MD Platelets (Bld) [#/Vol] 152 10*3/uL Normal 140-450 [facility] Comment on above: Performed By: #### B MP, TROPI, CBC, TSH #### [facility] [address] [place], [place] [id number] (030) [employer]: Angelito Muir MD RBC (Bld) [#/Vol] 4.22 10*6/uL Normal 4.00-5.20 [facility] Comment on above: Performed By: #### B MP, TROPI, CBC, TSH #### [facility] [address] [place], [place] [id number] [employer]: Angelito Muir MD WBC (Bld) [#/Vol] 4.5 10*3/uL Normal 3.5-11.0 [facility] Comment on above: Performed By: #### B MP, TROPI, CBC, TSH #### [facility] [address] [place], [place] [id number] [employer]: Angelito Muir MD Comp Metabolic Profon 2023 Albumin [Mass/Vol] 3.9 g/dL Normal 3.5-5.2 [facility] Comment on above: Performed By: #### B MP, TROPI, CBC, TSH #### [facility] [address] [place], [place] [id number] [employer]: Angelito Muir MD Alkaline Phos 49 U/L Normal 35-104 [facility] Comment on above: Performed By: #### B MP, TROPI, CBC, TSH #### [facility] [address] [place] [address] [employer]: Angelito Muir MD ALT [Catalytic activity/Vol] 12 U/L Normal 5-33 [facility] Comment on above: Performed By: #### B MP, TROPI, CBC, TSH #### [facility] [address] [place] [address] [employer]: Angelito Muir MD Anion gap [Moles/Vol] 15 mmol/L Normal 9-[address] [facility] Comment on above: Performed By: #### B MP, TROPI, CBC, TSH #### [facility] [address] [place] [address] [employer]: Angelito Muir MD AST [Catalytic activity/Vol] 15 U/L Normal <32 [facility] Comment on above: Performed By: #### B MP, TROPI, CBC, TSH #### [facility] [address] [place] [address] [employer]: Angelito Muir MD Bilirubin [Mass/Vol] 0.4 mg/dL Normal 0.3-1.2 [facility] Comment on above: Performed By: #### B MP, TROPI, CBC, TSH #### [facility] [address] [place] [address] [employer]: Angelito Muir MD BUN/CRE Ratio 29 High 9-20 [facility] Comment on above: Performed By: #### B MP, TROPI, CBC, TSH #### [facility] [address] [place] [address] [employer]: Angelito Muir MD Calcium [Mass/Vol] 8.9 mg/dL Normal 8.6-10.4 [facility] Comment on above: Performed By: #### B MP, TROPI, CBC, TSH #### [facility] [address] [place] [address] [employer]: Angelito Muir MD Chloride [Moles/Vol] 107 mmol/L Normal 98-107 [facility] Comment on above: Performed By: #### B MP, TROPI, CBC, TSH #### [facility] [address] [place] [address] [employer]: Angelito Muir MD CO2 [Moles/Vol] 17 mmol/L Low 20-31 [facility] Comment on above: Performed By: #### B MP, TROPI, CBC, TSH #### [facility] [address] [place] [address] [employer]: Angelito Muir MD Creatinine [Mass/Vol] 1.1 mg/dL High 0.5-0.[address] [facility] Comment on above: Performed By: #### B MP, TROPI, CBC, TSH #### [facility] [address] [place] [address] [employer]: Angelito Muir MD GFR/1.73 sq M.predicted among non-blacks MDRD (S/P/Bld) [Vol rate/Area] 51 mL/min/{1.73_m2} Low >60 [facility] Comment on above: Result Comment: These results [...] #### B MP, TROPI, CBC, TSH #### [facility] [address] [place] [address] [employer]: Angelito Muir MD Glucose [Mass/Vol] 136 mg/dL High 70-99 [facility] Comment on above: Performed By: #### B MP, TROPI, CBC, TSH #### [facility] [address] [place] [address] [employer]: Angelito Muir MD Potassium [Moles/Vol] 3.6 mmol/L Low 3.7-5.[address] [facility] Comment on above: Performed By: #### B MP, TROPI, CBC, TSH #### [facility] [address] [place] [address] [employer]: Angelito Muir MD Protein [Mass/Vol] 6.6 g/dL Normal 6.4-8.3 [facility] Comment on above: Performed By: #### B MP, TROPI, CBC, TSH #### [facility] [address] [place] [address] [employer]: Angelito Muir MD Sodium [Moles/Vol] 139 mmol/L Normal 135-144 [facility] Comment on above: Performed By: #### B MP, TROPI, CBC, TSH #### [facility] [address] [place] [address] [employer]: Angelito Muir MD Urea nitrogen [Mass/Vol] 32 mg/dL High 8-23 [facility] Comment on above: Performed By: #### B MP, TROPI, CBC, TSH #### [facility] [address] [place] [address] [employer]: Angelito Muir MD Comprehensive Metabolic Pane [facility] 10-23-2023 Albumin [Mass/Vol] 3.9 g/dL 3.5 - 5.2 g/dL [facility] ALP [Catalytic activity/Vol] 49 U/L 35 - 104 U/L [facility] ALT [Catalytic activity/Vol] 12 U/L 5 - 33 U/L [facility] Anion gap [Moles/Vol] 15 mmol/L 9 - 17 mmol/L [facility] AST [Catalytic activity/Vol] 15 U/L NINF - 32 U/L [facility] Bilirubin [Mass/Vol] 0.4 mg/dL 0.3 - 1 .2 mg/dL [facility] Calcium [Mass/Vol] 8.9 mg/dL 8.6 - 10. 4 mg/dL [facility] Chloride [Moles/Vol] 107 mmol/L 98 - 10 7 mmol/L [facility] CO2 [Moles/Vol] 17 mmol/L Low 20 - 31 mmol/L [facility] Creatinine [Mass/Vol] 1.1 mg/dL High 0.5 - 0.9 mg/dL [facility] GFR/1.73 sq M.predicted MDRD (S/P/Bld) [Vol rate/Area] 51 mL/min/{1.73_m2} Low - PINF [facility] Comment on above: These results are not [...] 136 mg/dL High 70 - 99 mg/dL [facility] Interpretation and review of laboratory results Abnormal [facility] Potassium [Moles/Vol] 3.6 mmol/L Low 3.7 - 5.3 mmol/L [facility] Protein [Mass/Vol] 6.6 g/dL 6.4 - 8.3 g/dL [facility] Sodium [Moles/Vol] 139 mmol/L 135 - 144 mmol/L [facility] Urea nitrogen [Mass/Vol] 32 mg/dL High 8 - 23 mg/dL [facility] Urea nitrogen/Creatinine [Mass ratio] 29 mg/mg High 9 - 20 [facility] Microscopic Urinalysison - [facility] Bacteria LM Ql (Urine sed) RARE Abnormal None [facility] Epithelial cells LM.HPF (Urine sed) [#/Area] 5 TO 10 /HPF [facility] Interpretation and review of laboratory results Abnormal [facility] RBC LM.HPF (Urine sed) [#/Area] 2 TO 5 [facility] WBC LM.HPF (Urine sed) [#/Area] NONE SEEN 0 /HPF [facility] Troponinon 10-23-2023 Interpretation and review of laboratory results Abnormal [facility] Troponin I.cardiac High sensitivity method [Mass/Vol] 19 ng/L High 0 - 14 ng/L [facility] Comment on above: High Sensitivity Tro ponin values cannot be compared with other Troponin methodologies. [facility] Troponin, High Sens 19 ng/L High 0-14 [facility] Comment on above: Result Comment: High Sensitivity Troponin values cannot be compared with other Troponin methodologies. Performed By: #### B MP, TROPI, CBC, TSH #### [facility] [address] [place], [place] [id number] [employer]: Angelito Muir MD Interpretation and review of laboratory results Abnormal [facility] Troponin I.cardiac High sensitivity method [Mass/Vol] 15 ng/L High 0 - 14 ng/L [facility] Comment on above: High Sensitivity Tro ponin values cannot be compared with other Troponin methodologies. [facility] Troponin, High Sens 15 ng/L High 0-14 [facility] Comment on above: Result Comment: High Sensitivity Troponin values cannot be compared with other Troponin methodologies. Performed By: #### B MP, TROPI, CBC, TSH #### [facility] [address] [place] [address] [employer]: Angelito Muir MD UA w/Reflex Cultureon 2023 Bilirubin, SemiQt,Ur Negative Normal NEG [facility] Comment on above: Performed By: #### B MP, TROPI, CBC, TSH #### [facility] [address] [place] [address] [employer] Operator: Angelito Muir MD Blood, Urine 2+ Abnormal NEG [facility] Comment on above: Performed By: #### B MP, TROPI, CBC, TSH #### [facility] [address] [place] [address] [employer] Operator: Angelito Muir MD Clarity (U) Clear Normal CLEAR [facility] Comment on above: Performed By: #### B MP, TROPI, CBC, TSH #### [facility] [address] [place], [place] [id number] [employer] Operator: Angelito Muir MD Color (U) Yellow Normal YEL [facility] Comment on above: Performed By: #### B MP, TROPI, CBC, TSH #### [facility] [address] [place], [place] [id number] [employer] Operator: Angelito Muir MD Comment Normal [facility] Comment on above: Performed By: #### B MP, TROPI, CBC, TSH #### [facility] [address] [place], [place] [id number] [employer] Operator: Angelito Muir MD Glucose Ql (U) Negative Normal NEG [facility] Comment on above: Performed By: #### B MP, TROPI, CBC, TSH #### [facility] [address] [place] [address] [employer] Operator: Angelito Muir MD Ketones Ql (U) TRACE Abnormal NEG [facility] Comment on above: Performed By: #### B MP, TROPI, CBC, TSH #### [facility] [address] [place] [address] [employer] Operator: Angelito Muir MD Leukocyte esterase Test strip Ql (U) Negative Normal NEG [facility] Comment on above: Performed By: #### B MP, TROPI, CBC, TSH #### [facility] [address] [place], [place] [id number] [employer] Operator: Angelito Muir MD Nitrite,Ur Negative Normal NEG [facility] Comment on above: Performed By: #### B MP, TROPI, CBC, TSH #### [facility] [address] [place], [place] [id number] [employer] Operator: Angelito Muir MD PH,Ur 5.0 Normal 5.0-8.0 [facility] Comment on above: Performed By: #### B MP, TROPI, CBC, TSH #### [facility] [address] [place] [address] [employer] Operator: Angelito Muir MD Protein Ql (U) 1+ mg/dL Abnormal NEG [facility] Comment on above: Performed By: #### B MP, TROPI, CBC, TSH #### [facility] [address] [place] [address] [employer] Operator: Angelito Muir MD Spec. [place],Ur 1.020 Normal 1.005-1.03 0 [facility] Comment on above: Performed By: #### B MP, TROPI, CBC, TSH #### [facility] [address] [place] [id number] [employer] Operator: Angelito Muir MD Urobilinogen,Ur Normal Normal 0.0-1.0 [facility] Comment on above: Performed By: #### B MP, TROPI, CBC, TSH #### [facility] [address] [place] [address] [employer] Operator: Angelito Muir MD Urinalysis with Reflex to Cu ltureon 10-23-2023 Bilirubin Ql (U) Negative NEGATIVE [facility] Clarity (U) Clear Clear [facility] Color (U) Yellow Yellow [facility] Comment [facility] Glucose Test strip (U) [Mass/Vol] Negative NEGATIVE mg/dL [facility] Hemoglobin Auto test strip Ql (U) 2+ Abnormal NEGATIVE [facility] Interpretation and review of laboratory results Abnormal [facility] Ketones (U) [Mass/Vol] TRACE Abnormal NEGATIVE mg/dL [facility] Leukocyte esterase Test strip Ql (U) Negative NEGATIVE [facility] Nitrite Ql (U) Negative NEGATIVE [facility] pH (U) 5.0 [pH] 5.0 - 8.0 [facility] Protein (U) [Mass/Vol] 1+ Abnormal NEGATIVE mg/dL [facility] Specific gravity (U) [Rel density] 1.020 1.005 - 1.030 [facility] Urobilinogen Qn (U) Normal 0.0 - 1. 0 EU/dL [facility] Urinalysis,Microon 4 ----- Normal [facility] Comment on above: Performed By: #### B MP, TROPI, CBC, TSH #### [facility] [address] [place] [address] [employer] Operator: Angelito Muir MD Bacteria RARE Abnormal NONE [facility] Comment on above: Performed By: #### B MP, TROPI, CBC, TSH #### [facility] [address] [place] [address] [employer] Operator: Angelito Muir MD Epithelial cells LM Ql (Urine sed) 5 TO 10 Normal [facility] Comment on above: Performed By: #### B MP, TROPI, CBC, TSH #### [facility] [address] [place] [address] [employer] Operator: Angelito Muir MD Urine RBC's 2 TO 5 Normal 0-2 [facility] Comment on above: Performed By: #### B MP, TROPI, CBC, TSH #### [facility] [address] [place] [address] [employer] Operator: Angelito Muir MD Urine WBC's NONE SEEN Normal 0 [facility] Comment on above: Performed By: #### B MP, TROPI, CBC, TSH #### [facility] [address] [place] [id number] [employer] Operator: Angelito Muir MD BUN + Creatinineon 4 Creatinine [Mass/Vol] 1.2 mg/dL High 0.5-0.[address] [facility] Comment on above: Performed By: #### B UNCRT #### [facility] [address] [place] [id number] [employer]: Angelito Muir MD GFR/1.73 sq M.predicted among non-blacks MDRD (S/P/Bld) [Vol rate/Area] 46 mL/min/{1.73_m2} Low >60 [facility] Comment on above: Result Comment: These results [...] secretion. Performed By: #### B UNCRT #### [facility] [address] [place] [address] [employer] Operator: Angelito Muir MD Urea nitrogen [Mass/Vol] 35 mg/dL High 02-20 [facility] Comment on above: Performed By: #### B UNCRT #### [facility] [address] [place] [address] [employer] Operator: Angelito uMir MD CT UROGRAMon 10-22-2023 CT UROGRAM EXAM: [...] Valentin Jr., MD 10/22/23 Final result Normal [facility] Cult,Urineon 10-02-2023 Cult,Urine Specimen Description .CLEAN CATCH [...] Tobramycin <=1 SUSCEPTIBLE Trimethoprim/Sulfa <=20 SUSCEPTIBLE Susceptible [facility] Comment on above: Performed By: #### B MP, TROPI, CBC, TSH #### [facility] [address] [place] [id number] [employer]: Angelito Muir MD Urinalysis w/ Microon 2023 ----- Normal [facility] Comment on above: Performed By: #### B MP, TROPI, CBC, TSH #### [facility] [address] [place] [id number] [employer] Operator: Angelito Muir MD Bacteria 2+ Abnormal NONE [facility] Comment on above: Performed By: #### B MP, TROPI, CBC, TSH #### [facility] [address] [place] [address] [employer] Operator: Angelito Muir MD Bilirubin, SemiQt,Ur Negative Normal NEG [facility] Comment on above: Performed By: #### B MP, TROPI, CBC, TSH #### [facility] [address] [place] [id number] [employer] Operator: Angelito Muir MD Blood, Urine 2+ Abnormal NEG [facility] Comment on above: Performed By: #### B MP, TROPI, CBC, TSH #### [facility] [address] [place] [address] [employer] Operator: Angelito Muir MD Clarity (U) Cloudy Abnormal CLEAR [facility] Comment on above: Performed By: #### B MP, TROPI, CBC, TSH #### [facility] [address] [place], [place] [id number] [employer] Operator: Angelito Muir MD Color (U) Yellow Normal YEL [facility] Comment on above: Performed By: #### B MP, TROPI, CBC, TSH #### [facility] [address] [place], [place] [phone] [employer] Operator: Angelito Muir MD Comment [facility] Comment on above: Performed By: #### B MP, TROPI, CBC, TSH #### [facility] [address] [place] [address] [employer]: Angelito Muir MD Epithelial cells LM Ql (Urine sed) 2 TO 5 Normal [facility] Comment on above: Performed By: #### B MP, TROPI, CBC, TSH #### [facility] [facility] [address] [place] [address] [employer] Operator: Angelito Muir MD Glucose Ql (U) Negative Normal NEG [facility] [place] [facility] Comment on above: Performed By: #### B MP, TROPI, CBC, TSH #### [facility] [address] [place] [address] [employer] Operator: Angelito Muir MD Ketones Ql (U) Negative Normal NEG [facility] [place] [facility] Comment on above: Performed By: #### B MP, TROPI, CBC, TSH #### [facility] [address] [place] [address] [employer] Operator: Angelito Muir MD Leukocyte esterase Test strip Ql (U) 3+ Abnormal NEG [facility] Comment on above: Performed By: #### B MP, TROPI, CBC, TSH #### [facility] [address] [place] [address] [employer] Operator: Angelito Muir MD Nitrite,Ur Negative Normal NEG [facility] Comment on above: Performed By: #### B MP, TROPI, CBC, TSH #### [facility] [address] [place] [id number] [employer] Operator: Angelito Muir MD PH,Ur 6.5 Normal 5.0-8.0 [facility] Comment on above: Performed By: #### B MP, TROPI, CBC, TSH #### [facility] [address] [place] [address] [employer] Operator: Angelito Muir MD Protein Ql (U) TRACE Abnormal NEG [facility] [place] [facility] Comment on above: Performed By: #### B MP, TROPI, CBC, TSH #### [facility] [address] [place] [id number] [employer] Operator: Angelito Muir MD Spec. [place],Ur 1.010 Normal 1.005-1.03 0 [facility] Comment on above: Performed By: #### B MP, TROPI, CBC, TSH #### [facility] [address] [place] [address] [employer] Operator: Angelito Muir MD Urine RBC's 10 TO 20 Normal 0-2 [facility] Comment on above: Performed By: #### B MP, TROPI, CBC, TSH #### [facility] [address] [place] [address] [employer] Operator: Angelito Muir MD Urine WBC's 20 TO 50 Normal 0 [facility] Comment on above: Performed By: #### B MP, TROPI, CBC, TSH #### [facility] [address] [place], [place] [id number] [employer] Operator: Angelito Miur MD Urobilinogen,Ur Normal Normal 0.0-1.0 [facility] Comment on above: Performed By: #### B MP, TROPI, CBC, TSH #### [facility] [address] [place] [address] [employer] Operator: Angelito Muir MD IntraOperative Documentson 0 09-23-2023 Intra[employer] Documents [id number] Normal [facility] Result Letter Officeon 09-22 Result Letter Office (Inserted Image. Un able to display) September 23, 2023 MARY JANE RIOS [address] [place] [address] : 1945 Below is a summary of [...] if you wish to make an appointment. [facility] [phone] Normal [facility] Alanine aminotransferase [En zymatic activity/volume] in Serum or PlasmaOrdered By: Nuvia Sanchez on 09-19-2023 ALT [Catalytic activity/Vol] 12 U/L Normal 7-52 [facility] Comment on above: Performed By: #### C 3, CH50, C4 #### [facility] , #### ESR, CMP, CBC, ADDONUAPLUS #### [facility] [address] Albumin [Mass/volume] in Ser um or Plasma by Bromocresol green (BCG) dye binding methoOrdered By: Nuvia Sanchez on 09-19-2023 Albumin BCG dye [Mass/Vol] 3.9 g/dL 3.5-5.7 [facility] Alkaline phosphatase [Enzyma tic activity/volume] in Serum or PlasmaOrdered By: Nuvia Sanchez on 09-19-2023 ALP [Catalytic activity/Vol] 59 U/L Normal 34-104 [facility] Comment on above: Result Comment: PERF ORMED BY: [place] [address] PATHOLOGIST CRITICAL CARE CNS MANUEL PABON M.D. Performed By: #### C 3, CH50, C4 #### [facility] , #### ESR, CMP, CBC, ADDONUAPLUS #### [address] Aspartate aminotransferase [ Enzymatic activity/volume] in Serum or PlasmaOrdered By: Nuvia Sanchez on 09-19-2023 AST [Catalytic activity/Vol] 13 U/L Normal 13-39 [facility] Comment on above: Performed By: #### C 3, CH50, C4 #### [facility] , #### ESR, CMP, CBC, ADDONUAPLUS #### [address] Automated basophil %Ordered By: Nuvia Sanchez on 09-19-2023 Basophils/100 WBC (Bld) 0.3 % Normal . [facility] Comment on above: Performed By: #### C 3, CH50, C4 #### [facility] , #### ESR, CMP, CBC, ADDONUAPLUS #### [address] Automated basophil countOrde red By: Nuvia Sanchez on 09-19-2023 Basophils (Bld) [#/Vol] 0.0 10*3/uL Normal 0.0-0.2 [facility] Comment on above: Performed By: #### C 3, CH50, C4 #### [facility] , #### ESR, CMP, CBC, ADDONUAPLUS #### [address] Automated blood monocyte cou ntOrdered By: Nuvia Sanchez on 09-19-2023 Monocytes (Bld) [#/Vol] 0.6 10*3/uL Normal 0.0-0.8 [facility] Comment on above: Performed By: #### C 3, CH50, C4 #### [facility] , #### ESR, CMP, CBC, ADDONUAPLUS #### [address] Automated eosinophil %Ordere d By: Nuvia Sanchez on 09-19-2023 Eosinophils/100 WBC (Bld) 0.8 % Normal . [facility] Comment on above: Performed By: #### C 3, CH50, C4 #### [facility] , #### ESR, CMP, CBC, ADDONUAPLUS #### [address] Automated eosinophil countOr dered By: Nuvai Sanchez on 09-19-2023 Eosinophils (Bld) [#/Vol] 0.1 10*3/uL Normal 0.0-0.45 [facility] Comment on above: Performed By: #### C 3, CH50, C4 #### [facility] , #### ESR, CMP, CBC, ADDONUAPLUS #### [address] Automated erythrocytes count in urine sediment (number/area)Ordered By: Nuvia Sanchez on 09-19-2023 RBC Auto (Urine sed) [#/Area] 0-1 [HPF] 0-4 [facility] Automated leukocytes count i n urine sediment (number/area)Ordered By: Nuvia Sanchez on 09-19-2023 WBC Auto (Urine sed) [#/Area] None seen [HPF] 0-4 [facility] Automated monocyte %Ordered By: Nuvia Sanchez on 09-19-2023 Monocytes/100 WBC (Bld) 6.5 % Normal . [facility] Comment on above: Performed By: #### C 3, CH50, C4 #### [facility] , #### ESR, CMP, CBC, ADDONUAPLUS #### [facility] [address] [place] [address] Automated neutrophil %Ordere d By: Nuvia Sanchez on 09-19-2023 Neutrophils/100 WBC (Bld) 74.2 % Normal . [facility] Comment on above: Performed By: #### C 3, CH50, C4 #### [facility] , #### ESR, CMP, CBC, ADDONUAPLUS #### [facility] [address] [place] [address] Automated urine color determ inationOrdered By: Nuvia Sanchez on 09-19-2023 Color (U) Yellow Normal Yellow [facility] Comment on above: Order Comment: Name Collection Type:: Clean-Voided Midstream Performed By: #### C 3, CH50, C4 #### [facility] , #### ESR, CMP, CBC, ADDONUAPLUS #### [address] Bilirubin Test strip Ql (U)O rdered By: Nuvia Sanchez on 09-19-2023 Bilirubin Ql (U) Negative Negative [facility] Bilirubin.total [Mass/volume ] in Serum or PlasmaOrdered By: Nuvia Sanchez on 09-19-2023 Bilirubin [Mass/Vol] 0.2 mg/dL Low 0.3-1.0 [facility] Comment on above: Performed By: #### C 3, CH50, C4 #### [facility] , #### ESR, CMP, CBC, ADDONUAPLUS #### [facility] [address] [place] [address] Calcium [Mass/volume] in Ser um or PlasmaOrdered By: Nuvia Sanchez on 09-19-2023 Calcium [Mass/Vol] 8.6 mg/dL Normal 8.6-10.3 [facility] Comment on above: Performed By: #### C 3, CH50, C4 #### [facility] , #### ESR, CMP, CBC, ADDONUAPLUS #### [facility] [address] [place] [address] [place] Carbon dioxide, total [Moles /volume] in Serum or PlasmaOrdered By: Nuvia Sanchez on 09-19-2023 CO2 [Moles/Vol] 24.3 mmol/L Normal 21.0-31.0 [facility] Comment on above: Performed By: #### C 3, CH50, C4 #### [facility] , #### ESR, CMP, CBC, ADDONUAPLUS #### [facility] [address] [place] [address] [place] Chloride [Moles/volume] in S liat or PlasmaOrdered By: Nuvia Sanchez on 09-19-2023 Chloride [Moles/Vol] 107 mmol/L Normal 98-107 [facility] Comment on above: Performed By: #### C 3, CH50, C4 #### [facility] , #### ESR, CMP, CBC, ADDONUAPLUS #### [facility] [address] [place] [address] [place] Complement C3on 09-19-2023 Complement C3 112 mg/dL Normal 82-167 [facility] Comment on above: Result Comment: Perf ormed at: - [facility] [address] [id number] [employer] Operator: Usman Draper PhD, Phone: [phone] Performed By: #### C 3, CH50, C4 #### [facility] , #### ESR, CMP, CBC, ADDONUAPLUS #### [facility] [address] [place] [address] [place] Complement C4on 09-19-2023 Complement C4 23 mg/dL Normal 12-38 [facility] Comment on above: Result Comment: PERF ORMED BY: [place] [address] PATHOLOGIST CRITICAL CARE CNS MANUEL PABON M.D. Performed By: #### C 3, CH50, C4 #### [facility] , #### ESR, CMP, CBC, ADDONUAPLUS #### [address] Complement Total (CH50)on Complement Total (CH50) 54 Normal >[address] [facility] Comment on above: Result [...] determine out of range values. Performed at: [facility] [address] [id number] [employer] Operator: Usman Draper PhD, Phone: [phone] PERFORMED BY: [place] [address] PATHOLOGIST CRITICAL CARE CNS MANUEL PABON M.D. Performed By: #### C 3, CH50, C4 #### [facility] , #### ESR, CMP, CBC, ADDONUAPLUS #### [address] Complete Blood Count Auto Di ffon 09-19-2023 Mean Corpuscular HGB Conc 33.2 g/dL Normal 32.0-35.[address] [facility] Comment on above: Performed By: #### C 3, CH50, C4 #### [facility] , #### ESR, CMP, CBC, ADDONUAPLUS #### [address] NRBC% 0.1 /100{WBC} Normal 0-0.5 [facility] Comment on above: Performed By: #### C 3, CH50, C4 #### [facility] , #### ESR, CMP, CBC, ADDONUAPLUS #### [place] [id number] [place] Comprehensive Metabolic Pane trevor 09-19-2023 Albumin [Mass/Vol] 3.9 g/dL Normal 3.5-5.7 [facility] Comment on above: Performed By: #### C 3, CH50, C4 #### [facility] , #### ESR, CMP, CBC, ADDONUAPLUS #### [place] [address] [place] GFR/1.73 sq M.predicted MDRD (S/P/Bld) [Vol rate/Area] 40.226 mL/min/{1.73_m2} Normal [facility] Comment on above: Performed By: #### C 3, CH50, C4 #### [facility] , #### ESR, CMP, CBC, ADDONUAPLUS #### [address] Creatinine [Mass/volume] in Serum or PlasmaOrdered By: Nuvia Sanchez on 09-19-2023 Creatinine [Mass/Vol] 1.35 mg/dL High 0.60-1.20 [facility] Comment on above: Performed By: #### C 3, CH50, C4 #### [facility] , #### ESR, CMP, CBC, ADDONUAPLUS #### [address] Dipstick and Microscopicon 0 09-19-2023 Appearance (U) Clear Normal Clear [facility] Comment on above: Order Comment: Name Collection Type:: Clean-Voided Midstream Performed By: #### C 3, CH50, C4 #### [facility] , #### ESR, CMP, CBC, ADDONUAPLUS #### [facility] [address] [place] [address] Bacteria,Urine None Seen Normal None Seen [facility] Comment on above: Order Comment: Name Collection Type:: Clean-Voided Midstream Performed By: #### C 3, CH50, C4 #### [facility] , #### ESR, CMP, CBC, ADDONUAPLUS #### [address] Bilirubin,Urine Negative Normal Negative [facility] Comment on above: Order Comment: Name Collection Type:: Clean-Voided Midstream Performed By: #### C 3, CH50, C4 #### [facility] , #### ESR, CMP, CBC, ADDONUAPLUS #### [address] Glucose Ql (U) Normal Normal Normal [facility] Comment on above: Order Comment: Name Collection Type:: Clean-Voided Midstream Performed By: #### C 3, CH50, C4 #### [facility] , #### ESR, CMP, CBC, ADDONUAPLUS #### [address] Hyaline Casts,Urine 0-8 Normal 0-8 [facility] Comment on above: Order Comment: Name Collection Type:: Clean-Voided Midstream Result Comment: PERF ORMED BY: [place] [address] PATHOLOGIST CRITICAL CARE CNS MANEUL PABON M.D. Performed By: #### C 3, CH50, C4 #### [facility] , #### ESR, CMP, CBC, ADDONUAPLUS #### [address] Ketones Ql (U) Negative Normal Negative [facility] Comment on above: Order Comment: Name Collection Type:: Clean-Voided Midstream Performed By: #### C 3, CH50, C4 #### [facility] , #### ESR, CMP, CBC, ADDONUAPLUS #### [address] Leukocyte esterase Test strip Ql (U) Negative Normal Negative [facility] Comment on above: Order Comment: Name Collection Type:: Clean-Voided Midstream Performed By: #### C 3, CH50, C4 #### [facility] , #### ESR, CMP, CBC, ADDONUAPLUS #### [place] [address] [place] Nitrite,Urine Negative Normal Negative [facility] Comment on above: Order Comment: Name Collection Type:: Clean-Voided Midstream Performed By: #### C 3, CH50, C4 #### [facility] , #### ESR, CMP, CBC, ADDONUAPLUS #### [address] Occult Blood,Urine Negative Normal Negative [facility] Comment on above: Order Comment: Name Collection Type:: Clean-Voided Midstream Performed By: #### C 3, CH50, C4 #### [facility] , #### ESR, CMP, CBC, ADDONUAPLUS #### [place] [address] [place] Protein,Urine Negative Normal Negative [facility] Comment on above: Order Comment: Name Collection Type:: Clean-Voided Midstream Performed By: #### C 3, CH50, C4 #### [facility] , #### ESR, CMP, CBC, ADDONUAPLUS #### [place] [address] [place] RBC LM.HPF (Urine sed) [#/Area] 0 /[HPF] Normal 0-[address] [facility] Comment on above: Order Comment: Name Collection Type:: Clean-Voided Midstream Performed By: #### C 3, CH50, C4 #### [facility] , #### ESR, CMP, CBC, ADDONUAPLUS #### [place] [address] [place] Specificy [place],Urine 1.011 Normal 1.001-1.[address] [facility] Comment on above: Order Comment: Name Collection Type:: Clean-Voided Midstream Performed By: #### C 3, CH50, C4 #### [facility] , #### ESR, CMP, CBC, ADDONUAPLUS #### [address] Squamous Epithelial Cell,Urine None Seen Normal 0-[address] [facility] Comment on above: Order Comment: Name Collection Type:: Clean-Voided Midstream Performed By: #### C 3, CH50, C4 #### [facility] , #### ESR, CMP, CBC, ADDONUAPLUS #### [address] Urobilinogen,Urine Normal Normal Normal [facility] Comment on above: Order Comment: Name Collection Type:: Clean-Voided Midstream Performed By: #### C 3, CH50, C4 #### [facility] , #### ESR, CMP, CBC, ADDONUAPLUS #### [address] WBC,Urine None Seen Normal 0-[address] [facility] Comment on above: Order Comment: Name Collection Type:: Clean-Voided Midstream Performed By: #### C 3, CH50, C4 #### [facility] , #### ESR, CMP, CBC, ADDONUAPLUS #### [address] Erythrocyte Sedimentation Ra heather 09-19-2023 ESR (Bld) [Velocity] 15 mm/h Normal 0-[address] [facility] Comment on above: Result Comment: PERF ORMED BY: [place] [address] PATHOLOGIST CRITICAL CARE CNS MANUEL PABON M.D. Performed By: #### C 3, CH50, C4 #### [facility] , #### ESR, CMP, CBC, ADDONUAPLUS #### [address] Erythrocyte distribution wid th [Ratio] by Automated countOrdered By: Nuvia Sanchez on 09-19-2023 Erythrocyte distribution width (RBC) [Ratio] 15.2 % Normal 11.9-15.3 [facility] Comment on above: Performed By: #### C 3, CH50, C4 #### [facility] , #### ESR, CMP, CBC, ADDONUAPLUS #### [address] Erythrocyte sedimentation ra te by Photometric methodOrdered By: Nuvia Sanchez on 09-19-2023 ESR Photometric method (Bld) [Velocity] 15 mm/hr 0-29 [facility] Erythrocytes [#/volume] in B lood by Automated countOrdered By: Nuvia Sanchez on 09-19-2023 RBC (Bld) [#/Vol] 3.76 10*6/uL Normal 3.60-5.00 [facility] Comment on above: Performed By: #### C 3, CH50, C4 #### [facility] , #### ESR, CMP, CBC, ADDONUAPLUS #### [address] Glucose [Mass/volume] in Ser um or PlasmaOrdered By: Nuvia Sanchez on 09-19-2023 Glucose [Mass/Vol] 84 mg/dL Normal 70-100 [facility] Comment on above: ADA recommended refe rence rangeRandom Glucose Reference Range is dependent on time and content of last meal. Glucose of more than 200 mg/dL in a nonstressed, ambulatory subject supports the diagnosis of Diabetes Mellitus. Result Comment: [place] om Glucose Reference Range is dependent on time and content of last meal. Glucose of more than 200 mg/dL in a nonstressed, ambulatory subject supports the diagnosis of Diabetes Mellitus. ADA recommended reference range Performed By: #### C 3, CH50, C4 #### [facility] , #### ESR, CMP, CBC, ADDONUAPLUS #### [place] [id number] [place] Hematocrit [Volume Fraction] of Blood by Automated countOrdered By: Nuvia Sanchez on 09-19-2023 Hematocrit (Bld) [Volume fraction] 34.5 % Normal 34.0-46.4 [facility] Comment on above: Performed By: #### C 3, CH50, C4 #### [facility] , #### ESR, CMP, CBC, ADDONUAPLUS #### [facility] [address] Hemoglobin [Mass/volume] in BloodOrdered By: Nuvia Sanchez on 09-19-2023 Hemoglobin (Bld) [Mass/Vol] 11.4 g/dL Low 11.8-15.4 [facility] Comment on above: Performed By: #### C 3, CH50, C4 #### [facility] , #### ESR, CMP, CBC, ADDONUAPLUS #### [facility] [address] Ketones Auto test strip (U) [Mass/Vol]Ordered By: Nuvia Sanchez on 09-19-2023 Ketones (U) [Mass/Vol] Negative Negative [facility] - UrinalysisOrder ed By: Nuvia Sanchez on 09-19-2023 Hyaline casts LM Ql (Urine sed) 0-8 [LPF] 0-8 [facility] Leukocytes [#/volume] correc pepito for nucleated erythrocytes in Blood by Automated counOrdered By: Nuvia Sanchez on 09-19-2023 WBC corrected for nucl RBC Auto (Bld) [#/Vol] 8.9 10*3/uL 3.8-11.6 [facility] Leukocytes [#/volume] in Blo od by Automated countOrdered By: Nuvia Sanchez on 09-19-2023 WBC (Bld) [#/Vol] 8.9 10*3/uL Normal 3.8-11.6 [facility] Comment on above: Performed By: #### C 3, CH50, C4 #### [facility] , #### ESR, CMP, CBC, ADDONUAPLUS #### [facility] [address] Lymphocytes [#/volume] in Bl ood by Automated countOrdered By: Nuvia Sanchez on 09-19-2023 Lymphocytes (Bld) [#/Vol] 1.6 10*3/uL Normal 1.00-4.8 [facility] Comment on above: Performed By: #### C 3, CH50, C4 #### [facility] , #### ESR, CMP, CBC, ADDONUAPLUS #### [address] Lymphocytes/100 leukocytes i n Blood by Automated countOrdered By: Nuvia Sanchez on 09-19-2023 Lymphocytes/100 WBC (Bld) 18.2 % Normal . [facility] Comment on above: Performed By: #### C 3, CH50, C4 #### [facility] , #### ESR, CMP, CBC, ADDONUAPLUS #### [address] MCH [Entitic mass] by Automa pepito countOrdered By: Nuvia Sanchez on 09-19-2023 MCH (RBC) [Entitic mass] 30.4 pg Normal 24.7-34.3 [facility] Comment on above: Performed By: #### C 3, CH50, C4 #### [facility] , #### ESR, CMP, CBC, ADDONUAPLUS #### [address] MCHC Auto (RBC) [Mass/Vol]Or dered By: Nuvia Sanchez on 09-19-2023 MCHC (RBC) [Mass/Vol] 33.2 g/dL 32.0-35.0 [facility] MCV [Entitic volume] by Auto mated countOrdered By: Nuvia Sanchez on 09-19-2023 MCV (RBC) [Entitic vol] 91.6 fL Normal 80-100 [facility] Comment on above: Performed By: #### C 3, CH50, C4 #### [facility] , #### ESR, CMP, CBC, ADDONUAPLUS #### [address] Neutrophils [#/volume] in Bl ood by Automated countOrdered By: Nuvia Sanchez on 09-19-2023 Neutrophils (Bld) [#/Vol] 6.6 10*3/uL Normal 1.8-7.7 [facility] Comment on above: Performed By: #### C 3, CH50, C4 #### [facility] , #### ESR, CMP, CBC, ADDONUAPLUS #### [address] Nitrite Test strip Ql (U)Ord ered By: Nuvia Sanchez on 09-19-2023 Nitrite Ql (U) Negative Negative [facility] No Panel InformationOrdered By: Nuvia Sanchez on 09-19-2023 Estimated GFR (CKD-EPI) 40.226 mL/Min [facility] Creatinine Clearance (Chem N/A [facility] Nucleated erythrocytes [Pres ence] in Blood by Automated countOrdered By: Nuvia Sanchez on 09-19-2023 Nucleated RBC Auto Ql (Bld) 0.1 /100{WBC} 0-0.5 [facility] Platelet mean volume [Entiti c volume] in Blood by Automated countOrdered By: Nuvia Sanchez on 09-19-2023 Platelet mean volume (Bld) [Entitic vol] 8.6 fL Normal 6.3-10.7 [facility] Comment on above: Performed By: #### C 3, CH50, C4 #### [facility] , #### ESR, CMP, CBC, ADDONUAPLUS #### [address] Platelets [#/volume] in Bloo d by Automated countOrdered By: Nuvia Sanchez on 09-19-2023 Platelets (Bld) [#/Vol] 214 10*3/uL Normal 150-450 [facility] Comment on above: Performed By: #### C 3, CH50, C4 #### [facility] , #### ESR, CMP, CBC, ADDONUAPLUS #### [address] Potassium [Moles/volume] in Serum or PlasmaOrdered By: Nuvia Sanchez on 09-19-2023 Potassium [Moles/Vol] 4.2 mmol/L Normal 3.5-5.1 [facility] Comment on above: Performed By: #### C 3, CH50, C4 #### [facility] , #### ESR, CMP, CBC, ADDONUAPLUS #### [address] Protein Auto test strip (U) [Mass/Vol]Ordered By: Nuvia Sanchez on 09-19-2023 Protein (U) [Mass/Vol] Negative Negative [facility] Protein [Mass/volume] in Ser um or PlasmaOrdered By: Nuvia Sanchez on 09-19-2023 Protein [Mass/Vol] 6.1 g/dL Low 6.4-8.9 [facility] Comment on above: Performed By: #### C 3, CH50, C4 #### [facility] , #### ESR, CMP, CBC, ADDONUAPLUS #### [address] Serum globulin measurement b y calculation (mass/volume)Ordered By: Nuvia Sanchez on 09-19-2023 Globulin (S) [Mass/Vol] 2.2 g/dL Normal [facility] Comment on above: Performed By: #### C 3, CH50, C4 #### [facility] , #### ESR, CMP, CBC, ADDONUAPLUS #### [address] Serum or plasma albumin/glob ulin mass ratioOrdered By: Nuvia Sanchez on 09-19-2023 Albumin/Globulin [Mass ratio] 1.8 {ratio} Normal [facility] Comment on above: Performed By: #### C 3, CH50, C4 #### [facility] , #### ESR, CMP, CBC, ADDONUAPLUS #### [facility] [address] Serum or plasma anion gap de terminationOrdered By: Nuvia Sanchez on 09-19-2023 Anion gap [Moles/Vol] 9.9 mmol/L Normal 6.0-15.0 [facility] Comment on above: Performed By: #### C 3, CH50, C4 #### [facility] , #### ESR, CMP, CBC, ADDONUAPLUS #### [facility] [address] [place] [address] Sodium [Moles/volume] in Ser um or PlasmaOrdered By: Nuvia Sanchez on 09-19-2023 Sodium [Moles/Vol] 137 mmol/L Normal 136-145 [facility] Comment on above: Performed By: #### C 3, CH50, C4 #### [facility] , #### ESR, CMP, CBC, ADDONUAPLUS #### [address] Specific gravity Auto test s trip (U) [Rel density]Ordered By: Nuvia Sanchez on 09-19-2023 Specific gravity (U) [Rel density] 1.011 1.001-1.03 0 [facility] Squamous epithelial cells de tection in urine sediment by light microscopyOrdered By: Nuvia Sanchez on 09-19-2023 Epithelial cells.squamous LM Ql (Urine sed) None seen [HPF] 0-2 [facility] Urea nitrogen [Mass/volume] in Serum or PlasmaOrdered By: Nuvia Sanchez on 09-19-2023 Urea nitrogen [Mass/Vol] 32 mg/dL High 7-25 [facility] Comment on above: Performed By: #### C 3, CH50, C4 #### [facility] , #### ESR, CMP, CBC, ADDONUAPLUS #### [facility] [address] Urine bacteria detection by automated methodOrdered By: Nuvia Sanchez on 09-19-2023 Bacteria Auto Ql (U) None seen None Seen [facility] Urine clarity by refractomet ry automatedOrdered By: Nuvia Sanchez on 09-19-2023 Clarity Refractometry automated (U) Clear Clear [facility] Urine glucose measurement by automated test strip (mass/volume)Ordered By: Nuvia Sanchez on 09-19-2023 Glucose Auto test strip (U) [Mass/Vol] Normal mg/dL Normal [facility] Urine hemoglobin detection b y automated test stripOrdered By: Nuvia Sanchez on 09-19-2023 Hemoglobin Auto test strip Ql (U) Negative Negative [facility] Urine leukocyte esterase det ection by automated test stripOrdered By: Nuvia Sanchez on 09-19-2023 Leukocyte esterase Auto test strip Ql (U) Negative Negative [facility] Urine pH measurement by auto mated test stripOrdered By: Nuvia Sanchez on 09-19-2023 pH (U) 6.0 [pH] Normal 5.0-9.0 [facility] Comment on above: Order Comment: Name Collection Type:: Clean-Voided Midstream Performed By: #### C 3, CH50, C4 #### [facility] , #### ESR, CMP, CBC, ADDONUAPLUS #### [facility] [address] [place] [address] [place] Urobilinogen Auto test strip (U) [Mass/Vol]Ordered By: Nuvia Sanchez on 09-19-2023 Urobilinogen (U) [Mass/Vol] Normal mg/dL Normal [facility] [place] 09-17-2023 Consent [id number] Normal [facility] Discharge Instructionson Discharge Instructions [id number] Normal [facility] Main OR Intraoperative Recor don 09-17-2023 Main OR Intraoperative Record IntraOp Document Type FT Summary Primary Physician: Davion Olivares MD Finalized Date/Time: 09/17/23 08:19:33 Pt. Name: BLANCA MARY JANE Gagnon/Sex: 1945 Female Med Rec #: [id number] Physician: Davion Olivares MD Financial #: [id number] Pt. Type: O Room/Bed: / Admit/Disch: 09/16/23 12:59:51 - 09/16/23 23:59:59 Institution: Case Times FT Entry 1 Patient Times In Room 09/16/23 14:15:00 Out Room 09/16/23 14:42:00 Procedure Times Start 09/16/23 14:20:00 Stop 09/16/23 14:39:00 Anesthesia Times Start 09/16/23 14:15:00 Stop 09/16/23 14:42:00 Time at [facility] 09/16/23 14:23:00 Last Modified By: Sd CAICEDO, Janell Reeves 09/16/23 14:41:11 General Comments: 09/17/23 Chart opened to review and send charges [facility] CSFA Case Attendance FT Entry 1 Entry 2 Entry 3 Case Attendee Jon SARKAR, Michi Beaver RN, Yong Fang Role Performed Anesthesiologist 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 Delgado supervising case Last Modified By: Sd CAICEDO, Janell Beaver RN, Janell Beaver RN, Janell Reeves 09/16/23 14:41:12 F 09/16/23 14:41:12 F 09/16/23 14:41:12 Entry 4 Entry 5 Case Attendee Alexa GUAN, Daisy Olivares MD, Davion Zarate Role Performed Staff - Other Surgeon - Primary Time In 09/16/23 14:15:00 09/16/23 14:15:00 Time Out 09/16/23 14:42:00 09/16/23 14:42:00 Procedure COLONOSCOPY(.) COLONOSCOPY(.) Comments help in room Last Modified By: Janell Beaver RN, RN, Madaline F 09/16/23 14:41:12 F 09/16/23 14:41:12 Perioperative Protocols [...] and tissue Entry 1 Skin Integrity Intact, [place], Warm, and Skin Abnormality No Dry Outcomes Met? Yes Last Modified By: Janell Beaver RN 09/16/23 14:23:55 Post-Care Text: The patient is free from signs and symptoms of injury caused by extraneous objects Patient Positioning FT Pre-Care Text: Identifies physical alterations that require additional precautions for procedure-specific positioning, verifies presence of prosthe (more content not included)... [facility] Postoperative Documentson Postoperative Documents [id number] [facility] Consent for Treatmenton 08-29 Consent for Treatment [id number] [facility] Discharge Instructionson Discharge Instructions MARY JANE RIOS :1945 Visit Date:09/16/2023 Inpatient Discharge Instructions Your Care Team Admitting Physician - Davion Olivares MD Referring Physician - Davion Olivares MD Reason for Your Visit INTESTIONAL METAPLASIA OF [...] tablet) fluticasone nasal (fluticasone 0.05 mg/inh Nasal [place]) levothyroxine (levothyroxine 50 mcg (0.05 mg) Tab) [...] For Persistent or heavy bleeding Pharmacy Information [facility] Discharge Instructions Discharge Instructions New Follow Up Appointments after Discharge Follow Up with Davion Olivares When: Comments: office will call for follow up Where: [address] [place], [place] [address], [address] [phone] Business (1) Medications What How Much When Instructions Next Dose Changed famotidine 20 Milligram By Mouth Once a day (at bedtime) Changed famotidine (famotidine 40 mg Tab) 1 Tablets By Mouth Once a day (at bedtime) Pickup at [facility] #[id number] Unchanged alprazolam 0.5 Milligram By Mouth At [...] fluticasone nasal (fluticasone 0.05 mg/ inh Nasal [place]) 50 Microgram Nasal Inhalation Every day Unchanged [...] Pharmacy Information (more content not included)... Normal [facility] Comment on above: Result Comment: Elec tronically Signed By: Winnie CAICEDO, Miley\.linden\Date and Time Signed: 09/16/23 15:00 EDT Endoscopic [...] hours. Education and Follow-up: Counseled: Patient, Family. [facility] Comment on above: Result Comment: Elec tronically Signed By: Marshall STEINER, Davion Zarate\.br\Date and Time Signed: 09/16/23 14:42 EDT Other Comment: Rachel saravia Attachment - attachment storage system not supported [id number] Can be viewed in source system Missing Attachment - attachment storage system not supported [id number] Can be viewed in source system Missing Attachment - attachment storage system not supported [id number] Can be viewed in source system Missing Attachment - attachment storage system not supported [id number] Can be viewed in source system Missing Attachment - attachment storage system not supported [id number] Can be viewed in source system Missing Attachment - attachment storage system not supported [id number] Can be viewed in source system Missing Attachment - attachment storage system not supported [id number] Can be viewed in source system Missing Attachment - attachment storage system not supported 5890056 Can be viewed in source system Missing Attachment - attachment storage system not supported 7112903 Can be viewed in source system Missing Attachment - attachment storage system not supported 1440790 Can be viewed in source system Missing Attachment - attachment storage system not supported [id number] Can be viewed in source system Missing Attachment - attachment storage system not supported [id number] Can be viewed in source system Gastroenterology [...] Historical Co (more content not included)... Normal [facility] Comment on above: Result Comment: Elec tronically Signed By: Davion Olivares MD\.br\Date and Time Signed: 09/16/23 14:16 EDT Inpatient Patient Summaryon 09-16-2023 Inpatient Patient Summary [place] [id number] [facility] Clinical Discharge Instructions PERSON INFORMATION Name: MARY JANE ROIS PH[facility]ICIANS Admitting Physician: Davion Olivares MD Attending Physician: Davion Olivares MD PCP: RONI DAHL MD Discharge Diagnosis: Colon polyps Comment: PATIENT EDUCATION INFORMATION Instructions: Medication Leaflets: Follow up: MEDICATION LIST Medications to Continue Taking That Have Changed [id number], [address] [place], [place] [id number], [phone] START: famotidine (famotidine 40 mg Tab) 1 [...] day. fluticasone nasal (fluticasone 0.05 mg/inh Nasal [place]) 50 Microgram Nasal Inhalation every day. levothyroxine [...] 50 Milligram By Mouth every day. Comment: Normal [facility] Main OR PACU I Recordon 08-29 Main OR PACU I Record PACU Phase I Docum ent Type FT Summary Primary Physician: Davion Olivares MD Finalized Date/Time: 09/16/23 16:43:13 Pt. Name: MARY JANE RIOS/Sex: 1945 Female Med Rec #: [id number] Physician: Davion Olivares MD Financial #: [id number] Pt. Type: O Room/Bed: / Admit/Disch: 09/16/23 [...] By: Miley Zhou RN 09/16/23 16:43 Normal [facility] Main OR Preoperative Recordo n 09-16-2023 Main OR Preoperative Record Holding Area Document Type FT Summary Primary Physician: Davion Olivares MD Finalized Date/Time: 09/16/23 13:10:36 Pt. Name: MARY JANE RIOS Ora Gagnon/Sex: 1945 Female Med Rec #: [id number] Physician: Davion Olivares MD Financial #: [id number] Pt. Type: O Room/Bed: / Admit/Disch: 09/16/23 [...] completed prep at 0700 and remained NPO since/MARIFER FAYE Finalized By: Eliza Lyn RN Document Signatures Signed By: Eliza Lyn RN 09/16/23 13:10 Normal [facility] Monitor Recordon 09-16-2023 Monitor Record [id number] Normal [facility] Monitor Record [id number] Normal [facility] Outpatient Surgery Discharge Instructionon 09-16-2023 Outpatient Surgery Discharge Instruction [place] [id number] Patient Discharge Instructions PERSON INFORMATION Name: MARY JANE RIOS Date of : 1945 Current Date: 09/16/2023 14:40:03 PHYSICIANS Admitting Physician: Marshall STEINER, Davion Zarate Discharge Diagnosis: Colon polyps MARY JANE RIOS [...] THE NEAREST EMERGENCY ROOM OR CALL 911 IBLANCA SHIRLEY J, have received the attached patient education materials/instructions and have verbalized understanding: May we do a follow up call? Yes No I was present when discharge instructions were given ____ Patient Signature _ Date Clinican/Nurse Signature Date Follow up: Pharmacy Information: [facility] You may receive a survey from [facility]well asking you to rate your care experience. Your feedback is important and will help us understand what we do well and how we can improve the quality of care we provide to you, your loved ones and our community. It?s an honor to serve you. Thank you for choosing [facility] HERE ARE THE MEDICATION CHANGES THAT OCCURRED DURING YOUR HOSPITAL STAY Medications to Continue Taking That Have Changed [id number], [address] [place], [place] [phone], [phone] START: famotidine (famotidine 40 mg Tab) 1 [...] day. fluticasone nasal (fluticasone 0.05 mg/inh Nasal [place]) 50 Microgram Nasal Inhalation every day. levothyroxine [...] day. PATIENT EDUCATION INFORMATION Instructions: Medication Leaflets: [facility] Patient Education - Texton 0 09-16-2023 Patient Education - Text [facility] Progress Note-Physicianon Progress Note-Physician Patient: MARY JANE RIOS Age: 77 years Sex: Female : 1945 Associated Diagnoses: None Author: Danny Anesthesiology (DO), Obie Tyler Postoperative Information Postoperative disposition: Postoperative disposition: To [...] bedtime), # 90 tab(s), Refills(s) 6, Pharmacy: [facility] #[id number], 162, cm, 09/16/23 10:47:00 EDT, Height/Length Dosing, [...] of stomach acid fluticasone 0.05 mg/inh Nasal [place]: 50 mcg, Nasal, Daily, Refill(s) 0, Allergy [...] day (at bedtime) fluticasone 0.05 mg/inh Nasal [place] 50 mcg, Nasal, Daily levothyroxine 50 mcg [...] All Problems Acid reflux / SNOMED CT 758967783 / Confirmed Anticoagulated / SNOMED CT 522893202 / Confirmed Asymptomatic microscopic hematuria / SNOMED CT 0251448944 / Confirmed Chronic back pain / SNOMED CT 789185960 / Confirmed Epigastric pain / SNOMED CT 484404254 / Confirmed H/O: arthritis / SNOMED CT 671984086 / Confirmed History of colon polyps / SNOMED CT 6592029133 / Confirmed Hypercholesterolemia / SNOMED CT 86212800 / Confirmed Hypothyroidism / SNOMED CT 71229742 / Confirmed Internal hemorrhoids / SNOMED CT 982337314 / Confirmed Intestinal metaplasia of stomach / SNOMED CT 371997778 / Confirmed Low vitamin B12 level / SNOMED CT 2940855925 / Confirmed Mixed incontinence / SNOMED CT 23646110 / Confirmed Mixed stress and urge urinary incontinence / SNOMED CT 5781252416 / Confirmed Nocturia / SNOMED CT 456850945 / Confirmed Obesity / ICD-9-CM 278.00 / Possible Shoulder strain / SNOMED CT 712179905 / Confirmed Sleep apnea / SNOMED CT 470536928 / Confirmed USES CPAP Stress incontinence / SNOMED CT 558141544 / Confirmed TMJ (temporomandibular joint disorder) / SNOMED CT 09707261 / Confirmed Urge incontinence / SNOMED CT 228474796 / Confirmed Weak urinary stream / SNOMED CT 318476458 / Confirmed Resolved: Constipation / SNOMED CT 38958639 Resolved: Diverticulosis / SNOMED CT 9770649103 Resolved: Frequency of urination / SNOMED CT 934396336 Resolved: Gastritis / SNOMED CT 9763164 Resolved: Hx of post-iza (more content not included)... Normal [facility] Comment on above: Result Comment: Elec tronically [...] of stomach acid fluticasone 0.05 mg/inh Nasal [place]: 50 mcg, Nasal, Daily, Refill(s) 0, Allergy [...] day (at bedtime) fluticasone 0.05 mg/inh Nasal [place] 50 mcg, Nasal, Daily levothyroxine 50 mcg [...] All Problems Acid reflux / SNOMED CT 809702755 / Confirmed Anticoagulated / SNOMED CT 017701000 / Confirmed Asymptomatic microscopic hematuria / SNOMED CT 0562603382 / Confirmed Chronic back pain / SNOMED CT 476886147 / Confirmed Epigastric pain / SNOMED CT 779485569 / Confirmed H/O: arthritis / SNOMED CT 049475803 / Confirmed History of colon polyps / SNOMED CT 1404332662 / Confirmed Hypercholesterolemia / SNOMED CT 20508086 / Confirmed Hypothyroidism / SNOMED CT 33913774 / Confirmed Internal hemorrhoids / SNOMED CT 678622042 / Confirmed Intestinal metaplasia of stomach / SNOMED CT 717835831 / Confirmed Low vitamin B12 level / SNOMED CT 7863250398 / Confirmed Mixed incontinence / SNOMED CT 02281972 / Confirmed 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 Normal [facility] Comment on above: Result Comment: Elec tronically Signed By: Danny Anesthesiology (), Obie Anne.br\Date and Time Signed: 09/16/23 13:35 EDT CBC with Diffon 08-20-2023 Abs. Basophil 0.01 k/uL Normal 0.00-0.20 [facility] Comment on above: Performed By: #### T SHX, ZFAST, CP, MG, CDP #### [facility] [address] [place] [address] [employer] Operator: Angelito Muir MD #### LIPR #### [place] [id number] [employer] Operator: Ambrose Moura MD Abs.Imm.Granulocyte 0.04 k/uL Normal 0.00-0.30 [facility] Comment on above: Performed By: #### T SHX, ZFAST, CP, MG, CDP #### [facility] [address] [place] [address] [employer] Operator: Angelito Muir MD #### LIPR #### [place] [address] [place], [place] [address] [employer] Operator: Ambrose Moura MD Abs.Neutrophil (Seg) 1.95 k/uL Low 2.5-7.0 [facility] Comment on above: Performed By: #### T SHX, ZFAST, CP, MG, CDP #### [facility] [address] [place] [address] [employer] Operator: Angelito Muir MD #### LIPR #### [address] [id number] [employer] Operator: Ambrose Moura MD Basophils/100 WBC (Bld) 0 % Normal 0-2 [facility] Comment on above: Performed By: #### T SHX, ZFAST, CP, MG, CDP #### [facility] [address] [place] [address] [employer] Operator: Angelito Muir MD #### LIPR #### [address] [id number] [employer] Operator: Ambrose Moura MD Eosinophils (Bld) [#/Vol] 0.09 10*3/uL Normal 0.00-0.40 [facility] Comment on above: Performed By: #### T SHX, ZFAST, CP, MG, CDP #### [facility] [address] [place] [id number] [employer] Operator: Angelito Muir MD #### LIPR #### [place] [id number] [employer] Operator: Ambrose Moura MD Eosinophils/100 WBC (Bld) 3 % Normal 0-5 [facility] Comment on above: Performed By: #### T SHX, ZFAST, CP, MG, CDP #### [facility] [address] [place] [address] [employer] Operator: Angelito Muir MD #### LIPR #### [place] [id number] [employer] Operator: Ambrose Moura MD Erythrocyte distribution width (RBC) [Ratio] 13.8 % Normal 12.1-15.2 [facility] Comment on above: Performed By: #### T SHX, ZFAST, CP, MG, CDP #### [facility] [address] [place] [address] [employer] Operator: Angelito Muir MD #### LIPR #### [address] [id number] [employer] Operator: Ambrose Moura MD Hematocrit (Bld) [Volume fraction] 34.7 % Low 36.0-46.0 [facility] Comment on above: Performed By: #### T SHX, ZFAST, CP, MG, CDP #### [facility] [address] [place], [place] [id number] [employer] Operator: Angelito Muir MD #### LIPR #### [address] [id number] [employer] Operator: Ambrose Moura MD Hemoglobin (Bld) [Mass/Vol] 11.4 g/dL Low 12.0-16.0 [facility] Comment on above: Performed By: #### T SHX, ZFAST, CP, MG, CDP #### [facility] [address] [place] [address] [employer] Operator: Angelito Muir MD #### LIPR #### [place] [id number] [employer] Operator: Ambrose Moura MD Immature granulocytes/100 WBC (Bld) 1 % Normal 0-5 [facility] Comment on above: Performed By: #### T SHX, ZFAST, CP, MG, CDP #### [facility] [address] [place] [address] [employer] Operator: Angelito Muir MD #### LIPR #### [address] [id number] [employer] Operator: Ambrose Moura MD Lymphocytes (Bld) [#/Vol] 1.02 10*3/uL Normal 1.00-4.80 [facility] Comment on above: Performed By: #### T SHX, ZFAST, CP, MG, CDP #### [facility] [address] [place] [address] [employer] Operator: Angelito Muir MD #### LIPR #### [address] 6270508 [employer] Operator: Ambrose Moura MD Lymphocytes/100 WBC (Bld) 30 % Normal 15-40 [facility] Comment on above: Performed By: #### T SHX, ZFAST, CP, MG, CDP #### [facility] [address] [place], [place] [phone] [employer] Operator: Angelito Muir MD #### LIPR #### [address] [id number] [employer] Operator: Ambrose Moura MD MCH (RBC) [Entitic mass] 30.9 pg Normal 26.0-34.0 [facility] Comment on above: Performed By: #### T SHX, ZFAST, CP, MG, CDP #### [facility] [address] [place] [id number] [employer] Operator: Angelito Muir MD #### LIPR #### [place] [address] [employer] Operator: Ambrose Moura MD MCHC (RBC) [Mass/Vol] 32.9 g/dL Normal 31.0-37.[address] [facility] Comment on above: Performed By: #### T SHX, ZFAST, CP, MG, CDP #### [facility] [address] [place] [id number] [employer] Operator: Angelito Muir MD #### LIPR #### [place] [address] [employer] Operator: Ambrose Moura MD MCV (RBC) [Entitic vol] 94.0 fL Normal 80.0-100.0 [facility] Comment on above: Performed By: #### T SHX, ZFAST, CP, MG, CDP #### [facility] [address] [place] [id number] [employer] Operator: Angelito Muir MD #### LIPR #### [address] 7[address] [employer] Operator: Ambrose Moura MD Monocytes (Bld) [#/Vol] 0.34 10*3/uL Normal 0.00-1.00 [facility] Comment on above: Performed By: #### T SHX, ZFAST, CP, MG, CDP #### [facility] [address] [place] [address] [employer] Operator: Angelito Muir MD #### LIPR #### [place] [address] [place], [place] [address] [employer] Operator: Ambrose Moura MD Monocytes/100 WBC (Bld) 10 % High 4-8 [facility] Comment on above: Performed By: #### T SHX, ZFAST, CP, MG, CDP #### [facility] [address] [place] [address] [employer] Operator: Angelito Muir MD #### LIPR #### [address] [id number] [employer] Operator: Ambrose Moura MD Neutrophil (Seg) 56 % Normal 47-75 [facility] Comment on above: Performed By: #### T SHX, ZFAST, CP, MG, CDP #### [facility] [address] [place] [address] [employer] Operator: Angelito Muir MD #### LIPR #### [address] [id number] [employer] Operator: Ambrose Moura MD Platelet mean volume (Bld) [Entitic vol] 9.8 fL Normal 6.0-12.0 [facility] Comment on above: Performed By: #### T SHX, ZFAST, CP, MG, CDP #### [facility] [address] [place] [address] [employer] Operator: Angelito Muir MD #### LIPR #### [facility] [address] [place] [address] [employer] Operator: Ambrose Moura MD Platelets (Bld) [#/Vol] 172 10*3/uL Normal 140-450 [facility] Comment on above: Performed By: #### T SHX, ZFAST, CP, MG, CDP #### [facility] [address] [place] [address] [employer] Operator: Angelito Muir MD #### LIPR #### [address] [address] [employer] Operator: Ambrose Moura MD RBC (Bld) [#/Vol] 3.69 10*6/uL Low 4.00-5.20 [facility] Comment on above: Performed By: #### T SHX, ZFAST, CP, MG, CDP #### [facility] [address] [place] [address] [employer] Operator: Angelito Muir MD #### LIPR #### [address] [address] [employer] Operator: Ambrose Moura MD WBC (Bld) [#/Vol] 3.5 10*3/uL Normal 3.5-11.0 [facility] Comment on above: Performed By: #### T SHX, ZFAST, CP, MG, CDP #### [facility] [address] [place] [address] [employer] Operator: Angelito Muir MD #### LIPR #### [address] [phone] [employer] Operator: Ambrose Moura MD Comp Metabolic Profon 2023 Albumin [Mass/Vol] 4.0 g/dL Normal 3.5-5.2 [facility] Comment on above: Performed By: #### T SHX, ZFAST, CP, MG, CDP #### [facility] [address] [place], [place] 5[address] [employer] Operator: Angelito Muir MD #### LIPR #### [place] [address] [place], [place] [address] [employer] Operator: Ambrose Moura MD Alkaline Phos 70 U/L Normal 35-104 [facility] Comment on above: Performed By: #### T SHX, ZFAST, CP, MG, CDP #### [facility] [address] [place], [place] [phone] [employer] Operator: Angelito Muir MD #### LIPR #### [address] [id number] [employer] Operator: Ambrose Moura MD ALT [Catalytic activity/Vol] 18 U/L Normal 5-33 [facility] Comment on above: Performed By: #### T SHX, ZFAST, CP, MG, CDP #### [facility] [address] [place], [place] [phone] [employer] Operator: Angelito Muir MD #### LIPR #### [address] [id number] [employer] Operator: Ambrose Moura MD Anion gap [Moles/Vol] 11 mmol/L Normal 9-[address] [facility] Comment on above: Performed By: #### T SHX, ZFAST, CP, MG, CDP #### [facility] [address] [place], [place] [phone] [employer] Operator: Angelito Muir MD #### LIPR #### [address] 6[address] [employer] Operator: Ambrose Moura MD AST [Catalytic activity/Vol] 17 U/L Normal <32 [facility] Comment on above: Performed By: #### T SHX, ZFAST, CP, MG, CDP #### [facility] [address] [place] [address] [employer] Operator: Angelito Muir MD #### LIPR #### [place] [address] [place], [place] [address] [employer] Operator: Ambrose Moura MD Bilirubin [Mass/Vol] 0.2 mg/dL Low 0.3-1.2 [facility] Comment on above: Performed By: #### T SHX, ZFAST, CP, MG, CDP #### [facility] [address] [place] [address] [employer] Operator: Angelito Muir MD #### LIPR #### [address] [address] [employer] Operator: Ambrose Moura MD BUN/CRE Ratio 27 High 9-20 [facility] Comment on above: Performed By: #### T SHX, ZFAST, CP, MG, CDP #### [facility] [address] [place] [address] [employer] Operator: Angelito Muir MD #### LIPR #### [address] [address] [employer] Operator: Ambrose Moura MD Calcium [Mass/Vol] 8.7 mg/dL Normal 8.6-10.4 [facility] Comment on above: Performed By: #### T SHX, ZFAST, CP, MG, CDP #### [facility] [address] [place] [address] [employer] Operator: Angelito Muir MD #### LIPR #### [address] [address] [employer] Operator: Ambrose Moura MD Chloride [Moles/Vol] 104 mmol/L Normal 98-107 [facility] Comment on above: Performed By: #### T SHX, ZFAST, CP, MG, CDP #### [facility] [facility] [address] [place] [address] [employer] Operator: Angelito Muir MD #### LIPR #### [id number] [place] [address] [employer] Operator: Ambrose Moura MD CO2 [Moles/Vol] 24 mmol/L Normal 20-31 [facility] Comment on above: Performed By: #### T SHX, ZFAST, CP, MG, CDP #### [facility] [address] [place] [address] [employer] Operator: Angelito Muir MD #### LIPR #### [address] [place] [address] [employer] Operator: Ambrose Moura MD Creatinine [Mass/Vol] 1.1 mg/dL High 0.5-0.[address] [facility] Comment on above: Performed By: #### T SHX, ZFAST, CP, MG, CDP #### [facility] [address] [place] [address] [employer] Operator: Angelito Muir MD #### LIPR #### [address] [address] [employer] Operator: Ambrose Moura MD GFR/1.73 sq M.predicted among non-blacks MDRD (S/P/Bld) [Vol rate/Area] 51 mL/min/{1.73_m2} Low >60 [facility] Comment on above: Result Comment: These results [...] T SHX, ZFAST, CP, MG, CDP #### [facility] [address] [place], [place] [id number] [employer] Operator: Angelito Muir MD #### LIPR #### [address] [id number] [employer] Operator: Ambrose Mouar MD Glucose [Mass/Vol] 102 mg/dL High 70-99 [facility] Comment on above: Performed By: #### T SHX, ZFAST, CP, MG, CDP #### [facility] [address] [place], [place] [id number] [employer] Operator: Angelito Muir MD #### LIPR #### [address] [id number] [employer] Operator: Ambrose Moura MD Potassium [Moles/Vol] 4.1 mmol/L Normal 3.7-5.[address] [facility] Comment on above: Performed By: #### T SHX, ZFAST, CP, MG, CDP #### [facility] [address] [place] [address] [employer] Operator: Angelito Muir MD #### LIPR #### [address] [id number] [employer] Operator: Ambrose Moura MD Protein [Mass/Vol] 6.3 g/dL Low 6.4-8.3 [facility] Comment on above: Performed By: #### T SHX, ZFAST, CP, MG, CDP #### [facility] [address] [place] [address] [employer] Operator: Angelito Muir MD #### LIPR #### [address] [id number] [employer] Operator: Ambrose Moura MD Sodium [Moles/Vol] 139 mmol/L Normal 135-144 [facility] Comment on above: Performed By: #### T SHX, ZFAST, CP, MG, CDP #### [facility] [address] [place] [address] [employer] Operator: Angelito Muir MD #### LIPR #### [address] [place], [place] [id number] [employer] Operator: Ambrose Moura MD Urea nitrogen [Mass/Vol] 30 mg/dL High 8-23 [facility] Comment on above: Performed By: #### T SHX, ZFAST, CP, MG, CDP #### [facility] [address] [place] [address] [employer] Operator: Angelito Muir MD #### LIPR #### [id number] [place] [address] [employer] Operator: Ambrose Moura MD Lipid Profileon 08-20-2023 Cholesterol [Mass/Vol] 112 mg/dL Normal 0-199 [facility] Comment on above: Result Comment: Cholesterol Guidelines: <200 Desirable 200-240 Borderline >240 Undesirable Performed By: #### B MP, TROPI, CBC, TSH #### [facility] [address] [place] [address] [employer] Operator: Angelito Muir MD Cholesterol in HDL [Mass/Vol] 39 mg/dL Low >40 [facility] Comment on above: Result Comment: HDL Guidelines: <40 Undesirable 40-59 Borderline >59 Desirable Performed By: #### B MP, TROPI, CBC, TSH #### [facility] [address] [place] [address] [employer] Operator: Angelito Muir MD Cholesterol in LDL [Mass/Vol] 58 mg/dL Normal 0-100 [facility] Comment on above: Result Comment: LDL Guidelines: <100 Desirable 100-129 Near to/above Desirable 130-159 Borderline >159 Undesirable Direct (measured) LDL and calculated LDL are not interchangeable tests. Performed By: #### B MP, TROPI, CBC, TSH #### [facility] [address] [place] [address] [employer] Operator: Angelito Muir MD Cholesterol in VLDL [Mass/Vol] 15 mg/dL Normal [facility] Comment on above: Performed By: #### B MAIDA TROPI, CBC, TSH #### [facility] [address] [place], [place] [id number] [employer] Operator: Angelito Muir MD Cholesterol.total/Cho lesterol in HDL [Mass ratio] 3.0 {ratio} Normal [facility] Comment on above: Performed By: #### B MP, TROPI, CBC, TSH #### [facility] [address] [place], [place] [id number] [employer] Operator: Angelito Muir MD Triglyceride [Mass/Vol] 77 mg/dL Normal <150 [facility] Comment on above: Result Comment: Triglyceride Guidelines: <150 Desirable 150-199 Borderline 200-499 High >499 Very high Based on AHA Guidelines for fasting triglyceride, March 2012. Performed By: #### B DIONY BEYI, CBC, TSH #### [facility] [address] [place] [address] [employer] Operator: Angelito Muir MD Magnesiumon 08-20-2023 Magnesium [Mass/Vol] 2.1 mg/dL Normal 1.6-2.6 [facility] Comment on above: Performed By: #### T SHX, ZFAST, CP, MG, CDP #### [facility] [address] [place] [address] [employer] Operator: Angelito Muir MD #### LIPR #### [address] [id number] [employer] Operator: Ambrose Moura MD Patient fasting?on 4 Patient fasting? YES Normal [facility] Comment on above: Performed By: #### T SHX, ZFAST, CP, MG, CDP #### [facility] [address] [place] [address] [employer] Operator: Angelito Muir MD #### LIPR #### [facility] [address] [place], [place] [id number] [employer] Operator: Ambrose Moura MD TSH w/reflex to FT4on 2023 Thyroid Stim. Horm. 1.88 uIU/mL Normal 0.30-5.00 [facility] Comment on above: Performed By: #### T SHX, ZFAST, CP, MG, CDP #### [facility] [address] [place] [address] [employer] Operator: Angelito Muir MD #### LIPR #### [facility] [address] [place] [address] [employer] Operator: Ambrose Moura MD XR CHEST (2 VW)on 08-20-2023 XR CHEST (2 VW) EXAM: XR CHEST (2 VW ) HISTORY: Essential hypertension COMPARISON: 02/27/2023. IMPRESSION: FINDINGS/IMPRESSION: 1. Normal sized heart. 2. Clear lungs. Interpreted by: Ishmael Valentin Jr., MD Signed by: Ishmael Valentin Jr., MD 08/20/23 Final result Normal [facility] COVID-19, Rapidon 07-01-2023 Interpretation and review of laboratory results Abnormal [facility] SARS-CoV-2 (COVID-19) RdRp gene JUAQUIN+probe Ql (Resp) Detected Abnormal Not Detected [facility] Comment on above: Rapid NAAT: The specimen [...] this assay. Fact sheet for Healthcare Providers: https://www.fda.gov/media/369850/download Fact sheet for Patients: https://www.fda.gov/media/372086/download Methodology: Isothermal Nucleic Acid Amplification Results reported to the appropriate Health Department Specimen Description .NASOPHARYNGEAL SWAB [facility] Flu A/B Ag Detectionon 07-01 Flu A Ag Detection Negative Normal [facility] Comment on above: Result Comment: for Influenza A Antigen Performed By: #### B MP, TROPI, CBC, TSH #### [facility] [address] [place], [place] [id number] [employer] Operator: Angelito Muir MD Flu B Ag Detection Negative Normal [facility] Comment on above: Result Comment: for Influenza B Antigen. Performed By: #### B MP, TROPI, CBC, TSH #### [facility] [address] [place] [address] [employer] Operator: Angelito Muir MD Rapid influenza A/B antigens on 07-01-2023 FLUAV Ag Ql (Unsp spec) Negative NEGATIVE [facility] Comment on above: for Influenza A Anti gen FLUBV Ag Ql (Unsp spec) Negative NEGATIVE [facility] Comment on above: for Influenza B Anti gen. [facility] [id number] 07-01-2023 SARS-CoV-2 (COVID-19) RNA JUAQUIN+probe Ql (Unsp spec) Detected Abnormal NOTDET [facility] Comment on above: Result Comment: Rapid NAAT: [...] this assay. Fact sheet for Healthcare Providers: https://www.fda.gov/media/280702/download Fact sheet for Patients: https://www.fda.gov/media/047373/download Methodology: Isothermal Nucleic Acid Amplification Results reported to the appropriate Health Department Performed By: #### B MP, TROPI, CBC, TSH #### [facility] [address] [place] [address] [employer] Operator: Angelito Muir MD Alanine aminotransferase [En zymatic activity/volume] in Serum or PlasmaOrdered By: Obie Hylton on 05-27-2023 ALT [Catalytic activity/Vol] 9 U/L Normal 7-52 [facility] Comment on above: Performed By: #### C 4, CH50, C3 #### [facility] , #### ESR, CBC, ADDONUAPLUS, CMP #### [facility] [address] [place] [address] [place] Albumin [Mass/volume] in Ser um or Plasma by Bromocresol green (BCG) dye binding methoOrdered By: Obie Hylton on 05-27-2023 Albumin BCG dye [Mass/Vol] 3.9 g/dL 3.5-5.7 [facility] Alkaline phosphatase [Enzyma tic activity/volume] in Serum or PlasmaOrdered By: Obie Hylton on 05-27-2023 ALP [Catalytic activity/Vol] 51 U/L Normal 34-104 [facility] Comment on above: Result Comment: PERF ORMED BY: [place] [address] PATHOLOGIST CRITICAL CARE CNS MANUEL PABON M.D. Performed By: #### C 4, CH50, C3 #### [facility] , #### ESR, CBC, ADDONUAPLUS, CMP #### [facility] [address] [place] [address] [place] Aspartate aminotransferase [ Enzymatic activity/volume] in Serum or PlasmaOrdered By: Obie Hylton on 05-27-2023 AST [Catalytic activity/Vol] 14 U/L Normal 13-39 [facility] Comment on above: Performed By: #### C 4, CH50, C3 #### [facility] , #### ESR, CBC, ADDONUAPLUS, CMP #### [address] Automated basophil %Ordered By: Obie Hylton on 05-27-2023 Basophils/100 WBC (Bld) 0.4 % Normal . [facility] Comment on above: Performed By: #### C 3, CH50, C4 #### [facility] , #### ESR, CMP, CBC, ADDONUAPLUS #### [address] Automated basophil countOrde red By: Obie Hylton on 05-27-2023 Basophils (Bld) [#/Vol] 0.0 10*3/uL Normal 0.0-0.2 [facility] Comment on above: Performed By: #### C 3, CH50, C4 #### [facility] , #### ESR, CMP, CBC, ADDONUAPLUS #### [address] Automated blood monocyte cou ntOrdered By: Obie Hylton on 05-27-2023 Monocytes (Bld) [#/Vol] 0.3 10*3/uL Normal 0.0-0.8 [facility] Comment on above: Performed By: #### C 3, CH50, C4 #### [facility] , #### ESR, CMP, CBC, ADDONUAPLUS #### [address] Automated eosinophil %Ordere d By: Obie Hylton on 05-27-2023 Eosinophils/100 WBC (Bld) 2.0 % Normal . [facility] Comment on above: Performed By: #### C 3, CH50, C4 #### [facility] , #### ESR, CMP, CBC, ADDONUAPLUS #### [address] Automated eosinophil countOr dered By: Obie Hylton on 05-27-2023 Eosinophils (Bld) [#/Vol] 0.1 10*3/uL Normal 0.0-0.45 [facility] Comment on above: Performed By: #### C 3, CH50, C4 #### [facility] , #### ESR, CMP, CBC, ADDONUAPLUS #### [address] Automated erythrocytes count in urine sediment (number/area)Ordered By: Obie Hylton on 05-27-2023 RBC Auto (Urine sed) [#/Area] 0-1 [HPF] 0-4 [facility] Automated leukocytes count i n urine sediment (number/area)Ordered By: Obie Hylton on 05-27-2023 WBC Auto (Urine sed) [#/Area] 0-1 [HPF] 0-4 [facility] Automated monocyte %Ordered By: Obie Hylton on 05-27-2023 Monocytes/100 WBC (Bld) 8.4 % Normal . [facility] Comment on above: Performed By: #### C 3, CH50, C4 #### [facility] , #### ESR, CMP, CBC, ADDONUAPLUS #### [address] Automated neutrophil %Ordere d By: Obie Hylton on 05-27-2023 Neutrophils/100 WBC (Bld) 61.9 % Normal . [facility] Comment on above: Performed By: #### C 3, CH50, C4 #### [facility] , #### ESR, CMP, CBC, ADDONUAPLUS #### [address] Automated urine color determ inationOrdered By: Obie Hylton on 05-27-2023 Color (U) Yellow Normal Yellow [facility] Comment on above: Order Comment: Name Collection Type:: Clean-Voided Midstream Performed By: #### C 3, CH50, C4 #### [facility] , #### ESR, CMP, CBC, ADDONUAPLUS #### [address] Bilirubin Test strip Ql (U)O rdered By: Obie Hylton on 05-27-2023 Bilirubin Ql (U) Negative Negative [facility] Bilirubin.total [Mass/volume ] in Serum or PlasmaOrdered By: Obie Hylton on 05-27-2023 Bilirubin [Mass/Vol] 0.5 mg/dL Normal 0.3-1.0 [facility] Comment on above: Performed By: #### C 4, CH50, C3 #### [facility] , #### ESR, CBC, ADDONUAPLUS, CMP #### [facility] [address] [place] [address] [place] Calcium [Mass/volume] in Ser um or PlasmaOrdered By: Obie Hylton on 05-27-2023 Calcium [Mass/Vol] 8.9 mg/dL Normal 8.6-10.3 [facility] Comment on above: Performed By: #### C 4, CH50, C3 #### [facility] , #### ESR, CBC, ADDONUAPLUS, CMP #### [facility] [address] [place] [address] [place] Carbon dioxide, total [Moles /volume] in Serum or PlasmaOrdered By: Obie Hylton on 05-27-2023 CO2 [Moles/Vol] 27.0 mmol/L Normal 21.0-31.0 [facility] Comment on above: Performed By: #### C 4, CH50, C3 #### [facility] , #### ESR, CBC, ADDONUAPLUS, CMP #### [facility] [address] [id number] [place] Chloride [Moles/volume] in S liat or PlasmaOrdered By: Obie Hylton on 05-27-2023 Chloride [Moles/Vol] 112 mmol/L High 98-107 [facility] Comment on above: Performed By: #### C 4, CH50, C3 #### [facility] , #### ESR, CBC, ADDONUAPLUS, CMP #### [address] Complement C3on 05-27-2023 Complement C3 110 mg/dL Normal 82-167 [facility] Comment on above: Result Comment: Perf ormed at: [address] [id number] [employer] Operator: Usman Draper PhD, Phone: [phone] Performed By: #### C 3, CH50, C4 #### [facility] , #### ESR, CMP, CBC, ADDONUAPLUS #### [address] Complement C4on 05-27-2023 Complement C4 25 mg/dL Normal 12-38 [facility] Comment on above: Result Comment: PERF ORMED BY: [place] [address] PATHOLOGIST CRITICAL CARE CNS MANUEL PABON M.D. Performed By: #### C 3, CH50, C4 #### [facility] , #### ESR, CMP, CBC, ADDONUAPLUS #### [address] Complement Total (CH50)on Complement Total (CH50) 58 Normal >[address] [facility] Comment on above: Result [...] determine out of range values. Performed at: [address] [id number] [employer] Operator: Usman Draper PhD, Phone: [phone] PERFORMED BY: [place] [address] PATHOLOGIST CRITICAL CARE CNS MANUEL PABON M.D. Performed By: #### C 3, CH50, C4 #### [facility] , #### ESR, CMP, CBC, ADDONUAPLUS #### [address] Complete Blood Count Auto Di ffon 05-27-2023 Mean Corpuscular HGB Conc 33.9 g/dL Normal 32.0-35.[address] [facility] Comment on above: Performed By: #### C 3, CH50, C4 #### [facility] , #### ESR, CMP, CBC, ADDONUAPLUS #### [address] NRBC% 0.2 /100{WBC} Normal 0-0.5 [facility] Comment on above: Performed By: #### C 3, CH50, C4 #### [facility] , #### ESR, CMP, CBC, ADDONUAPLUS #### [address] Comprehensive Metabolic Pane trevor 05-27-2023 Albumin [Mass/Vol] 3.9 g/dL Normal 3.5-5.7 [facility] Comment on above: Performed By: #### C 4, CH50, C3 #### [facility] , #### ESR, CBC, ADDONUAPLUS, CMP #### [address] GFR/1.73 sq M.predicted MDRD (S/P/Bld) [Vol rate/Area] 46.333 mL/min/{1.73_m2} Normal [facility] Comment on above: Performed By: #### C 4, CH50, C3 #### [facility] , #### ESR, CBC, ADDONUAPLUS, CMP #### [address] Creatinine [Mass/volume] in Serum or PlasmaOrdered By: Obie Hylton on 05-27-2023 Creatinine [Mass/Vol] 1.20 mg/dL Normal 0.60-1.20 [facility] Comment on above: Performed By: #### C 4, CH50, C3 #### [facility] , #### ESR, CBC, ADDONUAPLUS, CMP #### [address] Dipstick and Microscopicon 1 07-27-2022 Appearance (U) Cloudy Critically abnormal Clear [facility] Comment on above: Order Comment: Name Collection Type:: Clean-Voided Midstream Performed By: #### C 3, CH50, C4 #### [facility] , #### ESR, CMP, CBC, ADDONUAPLUS #### [facility] [address] [place] [address] Bacteria,Urine None Seen Normal None Seen [facility] Comment on above: Order Comment: Name Collection Type:: Clean-Voided Midstream Performed By: #### C 3, CH50, C4 #### [facility] , #### ESR, CMP, CBC, ADDONUAPLUS #### [address] Bilirubin,Urine Negative Normal Negative [facility] Comment on above: Order Comment: Name Collection Type:: Clean-Voided Midstream Performed By: #### C 3, CH50, C4 #### [facility] , #### ESR, CMP, CBC, ADDONUAPLUS #### [facility] [address] [place] [address] Glucose Ql (U) Normal Normal Normal [facility] Comment on above: Order Comment: Name Collection Type:: Clean-Voided Midstream Performed By: #### C 3, CH50, C4 #### [facility] , #### ESR, CMP, CBC, ADDONUAPLUS #### [address] Hyaline Casts,Urine 0-8 Normal 0-8 [facility] Comment on above: Order Comment: Name Collection Type:: Clean-Voided Midstream Result Comment: PERF ORMED BY: [place] [address] PATHOLOGIST CRITICAL CARE CNS MANUEL PABON M.D. Performed By: #### C 3, CH50, C4 #### [facility] , #### ESR, CMP, CBC, ADDONUAPLUS #### [address] Ketones Ql (U) Negative Normal Negative [facility] Comment on above: Order Comment: Name Collection Type:: Clean-Voided Midstream Performed By: #### C 3, CH50, C4 #### [facility] , #### ESR, CMP, CBC, ADDONUAPLUS #### [address] Leukocyte esterase Test strip Ql (U) Negative Normal Negative [facility] Comment on above: Order Comment: Name Collection Type:: Clean-Voided Midstream Performed By: #### C 3, CH50, C4 #### [facility] , #### ESR, CMP, CBC, ADDONUAPLUS #### [address] Nitrite,Urine Negative Normal Negative [facility] Comment on above: Order Comment: Name Collection Type:: Clean-Voided Midstream Performed By: #### C 3, CH50, C4 #### [facility] , #### ESR, CMP, CBC, ADDONUAPLUS #### [address] Occult Blood,Urine Trace High Negative [facility] Comment on above: Order Comment: Name Collection Type:: Clean-Voided Midstream Performed By: #### C 3, CH50, C4 #### [facility] , #### ESR, CMP, CBC, ADDONUAPLUS #### [place] [address] [place] Protein,Urine Negative Normal Negative [facility] Comment on above: Order Comment: Name Collection Type:: Clean-Voided Midstream Performed By: #### C 3, CH50, C4 #### [facility] , #### ESR, CMP, CBC, ADDONUAPLUS #### [address] RBC LM.HPF (Urine sed) [#/Area] 0 /[HPF] Normal 0-[address] [facility] Comment on above: Order Comment: Name Collection Type:: Clean-Voided Midstream Performed By: #### C 3, CH50, C4 #### [facility] , #### ESR, CMP, CBC, ADDONUAPLUS #### [address] Specificy [place],Urine 1.017 Normal 1.001-1.[address] [facility] Comment on above: Order Comment: Name Collection Type:: Clean-Voided Midstream Performed By: #### C 3, CH50, C4 #### [facility] , #### ESR, CMP, CBC, ADDONUAPLUS #### [address] Squamous Epithelial Cell,Urine 1-2 Normal 0-[address] [facility] Comment on above: Order Comment: Name Collection Type:: Clean-Voided Midstream Performed By: #### C 3, CH50, C4 #### [facility] , #### ESR, CMP, CBC, ADDONUAPLUS #### [address] Urobilinogen,Urine Normal Normal Normal [facility] Comment on above: Order Comment: Name Collection Type:: Clean-Voided Midstream Performed By: #### C 3, CH50, C4 #### [facility] , #### ESR, CMP, CBC, ADDONUAPLUS #### [address] WBC LM.HPF (Urine sed) [#/Area] 0 /[HPF] Normal 0-[address] [facility] Comment on above: Order Comment: Name Collection Type:: Clean-Voided Midstream Performed By: #### C 3, CH50, C4 #### [facility] , #### ESR, CMP, CBC, ADDONUAPLUS #### [address] Erythrocyte Sedimentation Ra heather 05-27-2023 ESR (Bld) [Velocity] 17 mm/h Normal 0-[address] [facility] Comment on above: Result Comment: PERF ORMED BY: [place] [address] PATHOLOGIST CRITICAL CARE CNS MANUEL PABON M.D. Performed By: #### C 3, CH50, C4 #### [facility] , #### ESR, CMP, CBC, ADDONUAPLUS #### [address] Erythrocyte distribution wid th [Ratio] by Automated countOrdered By: Obie Hylton on 05-27-2023 Erythrocyte distribution width (RBC) [Ratio] 14.9 % Normal 11.9-15.3 [facility] Comment on above: Performed By: #### C 3, CH50, C4 #### [facility] , #### ESR, CMP, CBC, ADDONUAPLUS #### [address] Erythrocyte sedimentation ra te by Photometric methodOrdered By: Obie Hylton on 05-27-2023 ESR Photometric method (Bld) [Velocity] 17 mm/hr 0-29 [facility] Erythrocytes [#/volume] in B lood by Automated countOrdered By: Obie Hylton on 05-27-2023 RBC (Bld) [#/Vol] 3.68 10*6/uL Normal 3.60-5.00 [facility] Comment on above: Performed By: #### C 3, CH50, C4 #### [facility] , #### ESR, CMP, CBC, ADDONUAPLUS #### [address] Glucose [Mass/volume] in Ser um or PlasmaOrdered By: Obie Hylton on 05-27-2023 Glucose [Mass/Vol] 91 mg/dL Normal 70-100 [facility] Comment on above: ADA recommended refe rence rangeRandom Glucose Reference Range is dependent on time and content of last meal. Glucose of more than 200 mg/dL in a nonstressed, ambulatory subject supports the diagnosis of Diabetes Mellitus. Result Comment: [place] om Glucose Reference Range is dependent on time and content of last meal. Glucose of more than 200 mg/dL in a nonstressed, ambulatory subject supports the diagnosis of Diabetes Mellitus. ADA recommended reference range Performed By: #### C 4, CH50, C3 #### [facility] , #### ESR, CBC, ADDONUAPLUS, CMP #### [address] Hematocrit [Volume Fraction] of Blood by Automated countOrdered By: Obie Hylton on 05-27-2023 Hematocrit (Bld) [Volume fraction] 34.4 % Normal 34.0-46.4 [facility] Comment on above: Performed By: #### C 3, CH50, C4 #### [facility] , #### ESR, CMP, CBC, ADDONUAPLUS #### [address] Hemoglobin [Mass/volume] in BloodOrdered By: Obie Hylton on 05-27-2023 Hemoglobin (Bld) [Mass/Vol] 11.7 g/dL Low 11.8-15.4 [facility] Comment on above: Performed By: #### C 3, CH50, C4 #### [facility] , #### ESR, CMP, CBC, ADDONUAPLUS #### [address] Ketones Auto test strip (U) [Mass/Vol]Ordered By: Obie Ramirezrow on 05-27-2023 Ketones (U) [Mass/Vol] Negative Negative [facility] - UrinalysisOrder ed By: Obie Hylton on 05-27-2023 Hyaline casts LM Ql (Urine sed) 0-8 [LPF] 0-8 [facility] Leukocytes [#/volume] correc pepito for nucleated erythrocytes in Blood by Automated counOrdered By: Obie Hylton on 05-27-2023 WBC corrected for nucl RBC Auto (Bld) [#/Vol] 3.9 10*3/uL 3.8-11.6 [facility] Leukocytes [#/volume] in Blo od by Automated countOrdered By: Obie Hylton on 05-27-2023 WBC (Bld) [#/Vol] 3.9 10*3/uL Normal 3.8-11.6 [facility] Comment on above: Performed By: #### C 3, CH50, C4 #### [facility] , #### ESR, CMP, CBC, ADDONUAPLUS #### [facility] [address] [place] [address] [place] Lymphocytes [#/volume] in Bl ood by Automated countOrdered By: Obie Hylton on 05-27-2023 Lymphocytes (Bld) [#/Vol] 1.1 10*3/uL Normal 1.00-4.8 [facility] Comment on above: Performed By: #### C 3, CH50, C4 #### [facility] , #### ESR, CMP, CBC, ADDONUAPLUS #### [facility] [address] [place] [address] [place] Lymphocytes/100 leukocytes i n Blood by Automated countOrdered By: Obie Ramirezrow on 05-27-2023 Lymphocytes/100 WBC (Bld) 27.3 % Normal . [facility] Comment on above: Performed By: #### C 3, CH50, C4 #### [facility] , #### ESR, CMP, CBC, ADDONUAPLUS #### [facility] [address] [place] [address] MCH [Entitic mass] by Automa pepito countOrdered By: Obie Hylton on 05-27-2023 MCH (RBC) [Entitic mass] 31.7 pg Normal 24.7-34.3 [facility] Comment on above: Performed By: #### C 3, CH50, C4 #### [facility] , #### ESR, CMP, CBC, ADDONUAPLUS #### [address] MCHC Auto (RBC) [Mass/Vol]Or dered By: Obie Ramirezrow on 05-27-2023 MCHC (RBC) [Mass/Vol] 33.9 g/dL 32.0-35.0 [facility] MCV [Entitic volume] by Auto mated countOrdered By: Obie Ramirezrow on 05-27-2023 MCV (RBC) [Entitic vol] 93.4 fL Normal 80-100 [facility] Comment on above: Performed By: #### C 3, CH50, C4 #### [facility] , #### ESR, CMP, CBC, ADDONUAPLUS #### [address] Neutrophils [#/volume] in Bl ood by Automated countOrdered By: Obie Ramirezrow on 05-27-2023 Neutrophils (Bld) [#/Vol] 2.4 10*3/uL Normal 1.8-7.7 [facility] Comment on above: Performed By: #### C 3, CH50, C4 #### [facility] , #### ESR, CMP, CBC, ADDONUAPLUS #### [address] Nitrite Test strip Ql (U)Ord ered By: Obie Ramirezrow on 05-27-2023 Nitrite Ql (U) Negative Negative [facility] No Panel InformationOrdered By: Obie Hyltno on 05-27-2023 Estimated GFR (CKD-EPI) 46.333 mL/Min [facility] Creatinine Clearance (Chem N/A [facility] Nucleated erythrocytes [Pres ence] in Blood by Automated countOrdered By: Obie Warner on 05-27-2023 Nucleated RBC Auto Ql (Bld) 0.2 /100{WBC} 0-0.5 [facility] Platelet mean volume [Entiti c volume] in Blood by Automated countOrdered By: Obie Warner on 05-27-2023 Platelet mean volume (Bld) [Entitic vol] 8.8 fL Normal 6.3-10.7 [facility] Comment on above: Performed By: #### C 3, CH50, C4 #### [facility] , #### ESR, CMP, CBC, ADDONUAPLUS #### [facility] [address] Platelets [#/volume] in Bloo d by Automated countOrdered By: Obie Hylton on 05-27-2023 Platelets (Bld) [#/Vol] 193 10*3/uL Normal 150-450 [facility] Comment on above: Performed By: #### C 3, CH50, C4 #### [facility] , #### ESR, CMP, CBC, ADDONUAPLUS #### [facility] [address] Potassium [Moles/volume] in Serum or PlasmaOrdered By: Obie Hylton on 05-27-2023 Potassium [Moles/Vol] 4.4 mmol/L Normal 3.5-5.1 [facility] Comment on above: Performed By: #### C 4, CH50, C3 #### [facility] , #### ESR, CBC, ADDONUAPLUS, CMP #### [facility] [address] Protein Auto test strip (U) [Mass/Vol]Ordered By: Obie Hylton on 05-27-2023 Protein (U) [Mass/Vol] Negative Negative [facility] Protein [Mass/volume] in Ser um or PlasmaOrdered By: Obie Hylton on 05-27-2023 Protein [Mass/Vol] 6.0 g/dL Low 6.4-8.9 [facility] Comment on above: Performed By: #### C 4, CH50, C3 #### [facility] , #### ESR, CBC, ADDONUAPLUS, CMP #### [address] Serum globulin measurement b y calculation (mass/volume)Ordered By: Obie Hylton on 05-27-2023 Globulin (S) [Mass/Vol] 2.1 g/dL [facility] Comment on above: Performed By: #### C 4, CH50, C3 #### [facility] , #### ESR, CBC, ADDONUAPLUS, CMP #### [address] Serum or plasma albumin/glob ulin mass ratioOrdered By: Obie Ramirezrow on 05-27-2023 Albumin/Globulin [Mass ratio] 1.9 {ratio} [facility] Comment on above: Performed By: #### C 4, CH50, C3 #### [facility] , #### ESR, CBC, ADDONUAPLUS, CMP #### [address] Serum or plasma anion gap de terminationOrdered By: Obie Ramirezrow on 05-27-2023 Anion gap [Moles/Vol] 8.4 mmol/L Normal 6.0-15.0 [facility] Comment on above: Performed By: #### C 4, CH50, C3 #### [facility] , #### ESR, CBC, ADDONUAPLUS, CMP #### [facility] [address] [place] [address] Sodium [Moles/volume] in Ser um or PlasmaOrdered By: Obie Warner on 05-27-2023 Sodium [Moles/Vol] 143 mmol/L Normal 136-145 [facility] Comment on above: Performed By: #### C 4, CH50, C3 #### [facility] , #### ESR, CBC, ADDONUAPLUS, CMP #### [facility] [address] [place] [address] [place] Specific gravity Auto test s trip (U) [Rel density]Ordered By: Obie Hylton on 05-27-2023 Specific gravity (U) [Rel density] 1.017 1.001-1.03 0 [facility] Squamous epithelial cells de tection in urine sediment by light microscopyOrdered By: Obie Hylton on 05-27-2023 Epithelial cells.squamous LM Ql (Urine sed) 1-2 [HPF] 0-2 [facility] Urea nitrogen [Mass/volume] in Serum or PlasmaOrdered By: Obie Hylton on 05-27-2023 Urea nitrogen [Mass/Vol] 25 mg/dL Normal 7-25 [facility] Comment on above: Performed By: #### C 4, CH50, C3 #### [facility] , #### ESR, CBC, ADDONUAPLUS, CMP #### [facility] [address] [place] [address] Urine bacteria detection by automated methodOrdered By: Obie Hylton on 05-27-2023 Bacteria Auto Ql (U) None seen None Seen [facility] Urine clarity by refractomet ry automatedOrdered By: Obie Hylton on 05-27-2023 Clarity Refractometry automated (U) Cloudy Clear [facility] Urine glucose measurement by automated test strip (mass/volume)Ordered By: Oibe Hylton on 05-27-2023 Glucose Auto test strip (U) [Mass/Vol] Normal mg/dL Normal [facility] Urine hemoglobin detection b y automated test stripOrdered By: Obie Hylton on 05-27-2023 Hemoglobin Auto test strip Ql (U) Trace Negative [facility] Urine leukocyte esterase det ection by automated test stripOrdered By: Obie Hylton on 05-27-2023 Leukocyte esterase Auto test strip Ql (U) Negative Negative [facility] Urine pH measurement by auto mated test stripOrdered By: Obie Hylton on 05-27-2023 pH (U) 5.5 [pH] Normal 5.0-9.0 [facility] Comment on above: Order Comment: Name Collection Type:: Clean-Voided Midstream Performed By: #### C 3, CH50, C4 #### [facility] , #### ESR, CMP, CBC, ADDONUAPLUS #### [facility] [address] Urobilinogen Auto test strip (U) [Mass/Vol]Ordered By: Obie Hylton on 05-27-2023 Urobilinogen (U) [Mass/Vol] Normal mg/dL Normal [facility] Cult,Urineon 05-21-2023 Cult,Urine Specimen Description .CLEAN CATCH [...] Tobramycin <=1 SUSCEPTIBLE Trimethoprim/Sulfa <=20 SUSCEPTIBLE Susceptible [facility] Comment on above: Performed By: #### B MP, TROPI, CBC, TSH #### [facility] [address] [place] [address] [employer] Operator: Angelito Muir MD [facility] DIGITAL SCREEN ROLO Rivas 05-14-2023 [facility] WU DIGITAL SCREEN BILATERAL HISTORY: Screening. Family [...] Valentin Jr., MD 05/14/23 Final result Normal [facility] Follow-Upon 04-11-2023 Follow-Up [id number] Genny Rios Ora 1945 F Date Provider Department Center 04/11/2023 [id number], XU NWO ORTHO [facility] No family history on file Level of Service:02644 DE OFFICE/OUTPATIENT ESTABLISHED LOW MDM 20-29 MIN Normal [facility] Office Visiton 03-28-2023 Follow-up visit [id number] Genny Rios ev Payan 1945 Date Provider Department Center 03/28/2023 [id number], XU NWO ORTHO [facility] No family history on file Level of Service:95002 DE OFFICE/OUTPATIENT NEW MODERATE MDM 45-59 MINUTES Normal [facility] US RENAL LIMITEDon 3 US RENAL LIMITED EXAMINATION: ULTRASOUND OF THE KIDNEYS 03/13/2023 10:12 am COMPARISON: None. HISTORY: ORDERING SYSTEM PROVIDED HISTORY: Renal cyst TECHNOLOGIST PROVIDED HISTORY: This procedure can be scheduled via [employer]. Access your [employer] account by visiting [facility]. FINDINGS: The right kidney measures 11.7 cm in length and the left kidney measures 11.3 cm in length. Normal renal cortical echogenicity. No hydronephrosis or nephrolithiasis. Simple right renal cyst 5 cm. Simple left renal cyst 5.2 cm. IMPRESSION: Simple bilateral renal cysts with otherwise unremarkable exam Interpreted by: Jonny Lopez DO Signed by: Jonny Lopez DO 03/13/23 Final result Normal [facility] Simple bilateral agus al cysts with otherwise unremarkable exam PN RIS CONSOLIDATED EXAMINATION: ULTRASOUND OF THE KIDNEYS 03/13/2023 10:12 am COMPARISON: None. HISTORY: ORDERING SYSTEM PROVIDED HISTORY: Renal cyst TECHNOLOGIST PROVIDED HISTORY: This procedure can be scheduled via [employer]. Access your [employer] account by visiting [facility]. FINDINGS: The right kidney measures 11.7 cm in length and the left kidney measures 11.3 cm in length. Normal renal cortical echogenicity. No hydronephrosis or nephrolithiasis. Simple right renal cyst 5 cm. Simple left renal cyst 5.2 cm. PN RIS CONSOLIDATED Jonny Lopez, DO - 03/13/2023 EXAMINATION: ULTRASOUND OF THE KIDNEYS 03/13/2023 10:12 am COMPARISON: None. HISTORY: ORDERING SYSTEM PROVIDED HISTORY: Renal cyst TECHNOLOGIST PROVIDED HISTORY: This procedure can be scheduled via [employer]. Access your [employer] account by visiting [facility]. FINDINGS: The right kidney measures 11.7 cm in length and the left kidney measures 11.3 cm in length. Normal renal cortical echogenicity. No hydronephrosis or nephrolithiasis. Simple right renal cyst 5 cm. Simple left renal cyst 5.2 cm. IMPRESSION: Simple bilateral renal cysts with otherwise unremarkable exam [facility] [employer] [facility] Study observation (narrative) [employer] US RENAL LIMITEDOrdered By: Jonny Lopez on 03-13-2023 [facility] [employer] Work Phone: XR lumbar spine 6V w bending on 03-07-2023 XR lumbar spine 6V w bending [facility] [place] [place] [address] XRay Report Signed Patient: Mary Jane Rios MR#: [id number] 15 : 1945 Acct:[id number] Age/Sex: 77 / F ADM Date: 03/07/23 Loc: XD Room: Type: [facility] Attending Dr: Mukul Wilson MD Copies to: [...] Jabier Alexander M.D.03/07/2023 12:27 PM Dictation Location: [place] [address] Transcribed By: [facility] 03/07/23 1227 Dictated By: Jabier Alexander DO 03/07/23 1225 Signed By: 03/07/23 1227 Normal [facility] Consent for Procedure/Surger yon 03-01-2023 Consent for Procedure/Surgery [id number] Normal [facility] Ambulatory Visit Summaryon 0 02-28-2023 Ambulatory Visit Summary MARY JANE RIOS :1945 Visit Date:02/28/2023 Ambulatory Visit Instructions Your [...] tablet) fluticasone nasal (fluticasone 0.05 mg/inh Nasal [place]) levothyroxine (levothyroxine 50 mcg (0.05 mg) Tab) [...] fluticasone nasal (fluticasone 0.05 mg/ inh Nasal [place]) 50 Microgram Nasal Inhalation Every day Unchanged [...] Nocturia Sl (more content not included)... Normal [facility] Cult,Urineon 02-28-2023 Cult,Urine Specimen Description .CLEAN CATCH URINE Culture NO SIGNIFICANT GROWTH Report Status FINAL 02/28/2023 Normal [facility] Comment on above: Performed By: #### B MP, TROPI, CBC, TSH #### [facility] [address] [place] [address] [employer] Operator: Angelito Muir MD Basic Metabolic Profon 02-27 Anion gap [Moles/Vol] 9 mmol/L Normal 9-17 [facility] Comment on above: Performed By: #### B MP, TROPI, CBC, TSH #### [facility] [address] [place] [address] [employer] Operator: Angelito Muir MD BUN/CRE Ratio 26 High 9-20 [facility] Comment on above: Performed By: #### B MP, TROPI, CBC, TSH #### [facility] [address] [place] [address] [employer] Operator: Angelito Muir MD Calcium [Mass/Vol] 9.2 mg/dL Normal 8.6-10.4 [facility] Comment on above: Performed By: #### B MP, TROPI, CBC, TSH #### [facility] [address] [place] [address] [employer] Operator: Angelito Muir MD Chloride [Moles/Vol] 104 mmol/L Normal 98-107 [facility] Comment on above: Performed By: #### B MP, TROPI, CBC, TSH #### [facility] [address] [place], [place] [id number] [employer] Operator: Angelito Muir MD CO2 [Moles/Vol] 25 mmol/L Normal 20-31 [facility] Comment on above: Performed By: #### B MP, TROPI, CBC, TSH #### [facility] [address] [place], [place] [id number] [employer] Operator: Angelito Muir MD Creatinine [Mass/Vol] 1.1 mg/dL High 0.5-0.[address] [facility] Comment on above: Performed By: #### B MP, TROPI, CBC, TSH #### [facility] [address] [place], [place] [id number] [employer] Operator: Angelito Muir MD GFR/1.73 sq M.predicted among non-blacks MDRD (S/P/Bld) [Vol rate/Area] 51 mL/min/{1.73_m2} Low >60 [facility] Comment on above: Result Comment: These results [...] #### B MP, TROPI, CBC, TSH #### [facility] [address] [place] [address] [employer] Operator: Angelito Muir MD Glucose [Mass/Vol] 93 mg/dL Normal 70-99 [facility] Comment on above: Performed By: #### B MP, TROPI, CBC, TSH #### [facility] [address] [place] [address] [employer] Operator: Angelito Muir MD Potassium [Moles/Vol] 4.2 mmol/L Normal 3.7-5.[address] [facility] Comment on above: Performed By: #### B MP, TROPI, CBC, TSH #### [facility] [address] [place] [address] [employer] Operator: Angelito Muir MD Sodium [Moles/Vol] 138 mmol/L Normal 135-144 [facility] Comment on above: Performed By: #### B MP, TROPI, CBC, TSH #### [facility] [address] [place] [address] [employer] Operator: Angelito Muir MD Urea nitrogen [Mass/Vol] 29 mg/dL High 8-23 [facility] Comment on above: Performed By: #### B MP, TROPI, CBC, TSH #### [facility] [address] [place] [address] [employer] Operator: Angelito Muir MD CBC with Diffon 02-27-2023 Abs. Atypical Lymphs 0.20 k/uL Normal 0.0-1.0 [facility] Comment on above: Performed By: #### B MP, TROPI, CBC, TSH #### [facility] [address] [place] [address] [employer] Operator: Angelito Muir MD Abs. Basophil Normal 0.0-0.2 [facility] Comment on above: Performed By: #### B MP, TROPI, CBC, TSH #### [facility] [address] [place] [address] [employer] Operator: Angelito Muir MD Abs.Imm.Granulocyte Normal 0.00-0.30 [facility] Comment on above: Performed By: #### B MP, TROPI, CBC, TSH #### [facility] [address] [place] [address] [employer] Operator: Angelito Muir MD Abs.Neutrophil (Seg) 4.60 k/uL Normal 2.5-7.0 [facility] Comment on above: Performed By: #### B MP, TROPI, CBC, TSH #### [facility] [address] [place] [address] [employer] Operator: Angelito Muir MD Atypical Lymphs 3 % Normal [facility] Comment on above: Performed By: #### B MP, TROPI, CBC, TSH #### [facility] [address] [place] [address] [employer] Operator: Angelito Muir MD Basophil Normal 0-2 [facility] Comment on above: Performed By: #### B MP, TROPI, CBC, TSH #### [facility] [address] [place] [id number] [employer] Operator: Angelito Muir MD Eosinophils (Bld) [#/Vol] 0.07 10*3/uL Normal 0.0-0.4 [facility] Comment on above: Performed By: #### B MP, TROPI, CBC, TSH #### [facility] [address] [place], [place] [phone] [employer] Operator: Agnelito Muir MD Eosinophils/100 WBC (Bld) 1 % Normal 0-5 [facility] Comment on above: Performed By: #### B MP, TROPI, CBC, TSH #### [facility] [address] [place] [address] [employer] Operator: Angelito Muir MD Immature Granulocyte Normal 0 [facility] Comment on above: Performed By: #### B MP, TROPI, CBC, TSH #### [facility] [address] [place] [address] [employer] Operator: Angelito Muir MD Lymphocytes (Bld) [#/Vol] 1.24 10*3/uL Normal 1.0-4.8 [facility] Comment on above: Performed By: #### B MP, TROPI, CBC, TSH #### [facility] [address] [place] [address] [employer] Operator: Angelito Muir MD Lymphocytes/100 WBC (Bld) 19 % Normal 15-40 [facility] Comment on above: Performed By: #### B MP, TROPI, CBC, TSH #### [facility] [address] [place] [address] [employer] Operator: Angelito Muir MD Monocytes (Bld) [#/Vol] 0.39 10*3/uL Normal 0.0-1.0 [facility] Comment on above: Performed By: #### B MP, TROPI, CBC, TSH #### [facility] [address] [place] [address] [employer] Operator: Angelito Muir MD Monocytes/100 WBC (Bld) 6 % Normal 4-8 [facility] Comment on above: Performed By: #### B MP, TROPI, CBC, TSH #### [facility] [address] [place], [place] [id number] [employer] Operator: Angelito Muir MD Morphology Igor (Bld) [Interp] Manual Differential Performed Normal [facility] Comment on above: Performed By: #### B MP, TROPI, CBC, TSH #### [facility] [address] [place] [address] [employer] Operator: Angelito Muir MD Neutrophil (Seg) 71 % Normal 47-75 [facility] Comment on above: Performed By: #### B MP, TROPI, CBC, TSH #### [facility] [address] [place] [address] [employer] Operator: Angelito Muir MD Erythrocyte distribution width (RBC) [Ratio] 14.6 % Normal 12.1-15.2 [facility] Comment on above: Performed By: #### B MP, TROPI, CBC, TSH #### [facility] [address] [place], [place] [id number] [employer] Operator: Angelito Muir MD Hematocrit (Bld) [Volume fraction] 36.6 % Normal 36-46 [facility] Comment on above: Performed By: #### B MP, TROPI, CBC, TSH #### [facility] [address] [place] [address] [employer] Operator: Angelito Muir MD Hemoglobin (Bld) [Mass/Vol] 12.3 g/dL Normal 12.0-16.0 [facility] Comment on above: Performed By: #### B MP, TROPI, CBC, TSH #### [facility] [address] [place] [address] [employer] Operator: Angelito Muir MD MCH (RBC) [Entitic mass] 31.0 pg Normal 26-34 [facility] Comment on above: Performed By: #### B MP, TROPI, CBC, TSH #### [facility] [address] [place] [address] [employer] Operator: Angelito Muir MD MCHC (RBC) [Mass/Vol] 33.6 g/dL Normal 31-[address] [facility] Comment on above: Performed By: #### B MP, TROPI, CBC, TSH #### [facility] [address] [place], [place] [phone] (906) [employer] Operator: Angelito Muir MD MCV (RBC) [Entitic vol] 92.2 fL Normal 80-100 [facility] Comment on above: Performed By: #### B MP, TROPI, CBC, TSH #### [facility] [address] [place], [place] [id number] [employer] Operator: Angelito Muir MD Platelets (Bld) [#/Vol] 202 10*3/uL Normal 140-450 [facility] Comment on above: Performed By: #### B MP, TROPI, CBC, TSH #### [facility] [address] [place], [place] [phone] [employer] Operator: Angelito Muir MD RBC (Bld) [#/Vol] 3.97 10*6/uL Low 4.0-5.2 [facility] Comment on above: Performed By: #### B MP, TROPI, CBC, TSH #### [facility] [address] [place], [place] [id number] (222) [employer] Operator: Angelito uMir MD WBC (Bld) [#/Vol] 6.5 10*3/uL Normal 3.5-11.0 [facility] Comment on above: Performed By: #### B MP, TROPI, CBC, TSH #### [facility] [address] [place], [place] [id number] [employer] Operator: Angelito Muir MD Urinalysis, Routineon 2022 Bilirubin, SemiQt,Ur Negative Abnormal NEG [facility] Comment on above: Performed By: #### B MP, TROPI, CBC, TSH #### [facility] [address] [place], [place] [phone] [employer] Operator: Angelito Muir MD Blood, Urine TRACE Abnormal NEG [facility] Comment on above: Performed By: #### B MP, TROPI, CBC, TSH #### [facility] [address] [place] [address] [employer] Operator: Angelito Muir MD Clarity (U) Clear Normal CLEAR [facility] Comment on above: Performed By: #### B MP, TROPI, CBC, TSH #### [facility] [address] [place] [address] [employer] Operator: Angelito Muir MD Color (U) Yellow Normal L [facility] Comment on above: Performed By: #### B MP, TROPI, CBC, TSH #### [facility] [address] [place], [place] [id number] [employer] Operator: Angelito Muir MD Comment Normal [facility] Comment on above: Performed By: #### B MP, TROPI, CBC, TSH #### [facility] [address] [place] [address] [employer] Operator: Angelito Muir MD Glucose Ql (U) Negative Normal NEG [facility] [place] [facility] Comment on above: Performed By: #### B MP, TROPI, CBC, TSH #### [facility] [address] [place] [address] [employer] Operator: Angelito Muir MD Ketones Ql (U) Negative Normal NEG [facility] [place] [facility] Comment on above: Performed By: #### B MP, TROPI, CBC, TSH #### [facility] [address] [place] [address] [employer] Operator: Angelito Muir MD Leukocyte esterase Test strip Ql (U) 1+ Abnormal NEG [facility] Comment on above: Performed By: #### B MP, TROPI, CBC, TSH #### [facility] [address] [place] [address] [employer] Operator: Angelito Muir MD Nitrite,Ur Negative Normal NEG [facility] Comment on above: Performed By: #### B MP, TROPI, CBC, TSH #### [facility] [address] [place] [address] [employer] Operator: Angelito Muir MD PH,Ur 5.0 Normal 5.0-8.0 [facility] Comment on above: Performed By: #### B MP, TROPI, CBC, TSH #### [facility] [address] [place] [address] [employer] Operator: Angelito Muir MD Protein Ql (U) TRACE Abnormal NEG [facility] [place] [facility] Comment on above: Performed By: #### B MP, TROPI, CBC, TSH #### [facility] [address] [place] [address] [employer] Operator: Angelito Muir MD Spec. [place],Ur 1.025 Normal 1.005-1.03 0 [facility] Comment on above: Performed By: #### B MP, TROPI, CBC, TSH #### [facility] [address] [place] [address] [employer] Operator: Angelito Muir MD Urobilinogen,Ur Normal Normal 0.0-1.0 [facility] Comment on above: Performed By: #### B MP, TROPI, CBC, TSH #### [facility] [address] [place] [address] [employer] Operator: Angelito Muir MD Urinalysis,Microon 3 ----- Normal [facility] Comment on above: Performed By: #### B MP, TROPI, CBC, TSH #### [facility] [address] [place] [address] [employer] Operator: Angelito Muir MD Bacteria 2+ Abnormal NONE [facility] Comment on above: Performed By: #### B MP, TROPI, CBC, TSH #### [facility] [address] [place], [place] [phone] [employer] Operator: Angelito Muir MD Epithelial cells LM Ql (Urine sed) 20 TO 50 Normal [facility] Comment on above: Performed By: #### B MP, TROPI, CBC, TSH #### [facility] [address] [place], [place] [id number] [employer] Operator: Angelito Muir MD Urine RBC's 2 TO 5 Normal 0-2 [facility] Comment on above: Performed By: #### B MP, TROPI, CBC, TSH #### [facility] [address] [place], [place] [phone] [employer] Operator: Angelito Muir MD Urine WBC's 2 TO 5 Normal 0 [facility] Comment on above: Performed By: #### B MP, TROPI, CBC, TSH #### [facility] [address] [place], [place] [id number] [employer] Operator: Angelito Muir MD XR CHEST (2 VW)on [...] Karyn Kwon MD 02/27/23 Final result Normal [facility] MR lumbar spine wo [facility] MR lumbar spine wo con [facility] Main [place] [address] [place], [place] [id number] MRI Report Signed Patient: Mary Jane Rios MR#: [id number] 15 : 1945 Acct:[id number] Age/Sex: 77 / F ADM Date: 02/21/23 Loc: MR Room: Type: [facility] Attending Dr: Yanelis Garcia MD Copies to: [...] John Anguiano M.D.02/21/2023 4:09 PM Dictation Location: [place] [address] Transcribed By: [facility] 02/21/23 1602 Dictated By: John Anguiano II, MD 02/21/23 1550 Signed By: 02/21/23 1601 [facility] Cult,Urineon 12-15-2022 Cult,Urine Specimen Description [...] ENCLCX Method PAULINO TAVAREZ Ceftriaxone SUSCEPTIBLE Susceptible [facility] Comment on above: Performed By: #### U #### [facility] [employer] [address] [place] [address] [employer] Operator: Ambrose Moura MD [facility] [address] [place] [address] [employer] Operator: Angelito Muir MD Urinalysis w/ Microon 2022 Bacteria TRACE Abnormal NONE [facility] Comment on above: Performed By: #### U AMIC #### [facility] [address] [place], [place] [id number] [employer] Operator: Angelito Muir MD Bilirubin, SemiQt,Ur Negative Normal NEG [facility] Comment on above: Performed By: #### U AMIC #### [facility] [address] [place], [facility] [employer] Operator: Angelito Muir MD Blood, Urine 1+ Abnormal NEG [facility] Comment on above: Performed By: #### U AMIC #### [facility] [address] [place] [address] [place] [id number] [employer] Operator: Angelito Muir MD Clarity (U) Clear Normal CLEAR [facility] Comment on above: Performed By: #### U AMIC #### [facility] [address] [place] [address] Dr. [place], [facility] [employer] Operator: Angelito Muir MD Color (U) Yellow Normal YEL [facility] Comment on above: Performed By: #### U AMIC #### [address] [place], [facility] [employer] Operator: Angelito Muir MD Epithelial cells LM Ql (Urine sed) 0 TO 2 Normal 0-25 [facility] Comment on above: Performed By: #### U AMIC #### [facility] [address] [place] [address] Dr. [place], [facility] [employer] Operator: Angelito Muir MD Glucose Ql (U) Negative Normal NEG [facility] in Hospital Comment on above: Performed By: #### U AMIC #### [facility] [address] [place] [address] [place] [address] [employer] Operator: Angelito Muir MD Ketones Ql (U) Negative Normal NEG [facility] in Hospital Comment on above: Performed By: #### U AMIC #### [facility] [address] [place] [address] Dr. [place], [place] [id number] [employer] Operator: Angelito Muir MD Leukocyte esterase Test strip Ql (U) Negative Normal NEG [facility] Comment on above: Performed By: #### U AMIC #### [facility] [address] [place] [address] [place] [address] [employer] Operator: Angelito Muir MD Nitrite,Ur Negative Normal NEG [facility] Comment on above: Performed By: #### U AMIC #### [facility] [address] [place] [address] [place] [address] [employer] Operator: Angelito Muir MD PH,Ur 6.0 Normal 5.0-9.0 [facility] Comment on above: Performed By: #### U AMIC #### [address] [place], [place] [id number] [employer] Operator: Angelito Muir MD Protein Ql (U) Negative Normal NEG [facility] Comment on above: Performed By: #### U AMIC #### [address] [place] [address] [employer] Operator: Angelito Muir MD Spec. [place],Ur 1.020 Normal 1.010-1.02 0 [facility] Comment on above: Performed By: #### U AMIC #### [facility] [address] [place] [address] Dr. [place], [place] [id number] [employer] Operator: Angelito Muir MD Urine RBC's 0 TO 2 Normal 0-2 [facility] Comment on above: Performed By: #### U AMIC #### [facility] [address] [place] [address] [place] [address] [employer] Operator: Angelito Muir MD Urine WBC's 0 TO 2 Normal 0-5 [facility] Comment on above: Performed By: #### U AMIC #### [facility] [address] [place] [address] [place] [address] [employer] Operator: Angelito Muir MD Urobilinogen,Ur Normal Normal NORM [facility] Comment on above: Performed By: #### U AMI #### [facility] [address] [place] [address] [employer] Operator: Angelito Muir MD CBC with Auto Differentialon 11-25-2022 Basophils (Bld) [#/Vol] 0.00 10*3/uL [facility] Basophils/100 WBC (Bld) 0 % 0 - 2 % [facility] Differential Type YES [facility] Eosinophils (Bld) [#/Vol] 0.10 10*3/uL [facility] Eosinophils/100 WBC (Bld) 2 % 0 - 5 % [facility] Erythrocyte distribution width (RBC) [Ratio] 14.0 % 12.1 - 15.2 % [facility] Hematocrit (Bld) [Volume fraction] 35.6 % Low 36 - 46 % [facility] Hemoglobin (Bld) [Mass/Vol] 12.0 g/dL 12.0 - 16.0 g/dL [facility] Interpretation and review of laboratory results Abnormal [facility] Lymphocytes/100 WBC (Bld) 27 % 15 - 40 % [facility] Lymphocytes/100 WBC (Bld) 1.30 % [facility] MCH (RBC) [Entitic mass] 31.0 pg 26 - 34 pg [facility] MCHC (RBC) [Mass/Vol] 33.8 g/dL 31 - 3 7 g/dL [facility] MCV (RBC) [Entitic vol] 91.6 fL 80 - 100 fL [facility] Monocytes/100 WBC (Bld) 9 % High 4 - 8 % [facility] Monocytes/100 WBC (Bld) 0.50 % [facility] Neutrophils/100 WBC (Bld) 62 % 47 - 75 % [facility] Platelets (Bld) [#/Vol] 240 10*3/uL [facility] RBC (Bld) [#/Vol] 3.89 10*6/uL Low 4.0 - 5.2 m/uL [facility] Segmented neutrophils/100 WBC (Bld) 3.10 % [facility] WBC other (Bld) [#/Vol] 5.0 [facility] Comprehensive Metabolic Pane trevor 11-25-2022 Albumin [Mass/Vol] 3.7 g/dL 3.5 - 5.2 g/dL [facility] ALP [Catalytic activity/Vol] 70 U/L 35 - 104 U/L [facility] ALT [Catalytic activity/Vol] 6 U/L 5 - 33 U/L [facility] Anion gap [Moles/Vol] 10 mmol/L 9 - 17 mmol/L [facility] AST [Catalytic activity/Vol] 15 U/L NINF - 32 U/L [facility] Bilirubin [Mass/Vol] 0.3 mg/dL 0.3 - 1 .2 mg/dL [facility] Calcium [Mass/Vol] 9.4 mg/dL 8.6 - 10. 4 mg/dL [facility] Chloride [Moles/Vol] 105 mmol/L 98 - 10 7 mmol/L [facility] CO2 [Moles/Vol] 24 mmol/L 20 - 31 mmol/L [facility] Creatinine [Mass/Vol] 1.12 mg/dL High 0.50 - 0.90 mg/dL [facility] GFR/1.73 sq M.predicted MDRD (S/P/Bld) [Vol rate/Area] 51 mL/min/{1.73_m2} Low - PINF [facility] Comment on above: These results are not [...] [Mass/Vol] 97 mg/dL 70 - 99 mg/dL [facility] Interpretation and review of laboratory results Abnormal [facility] Potassium [Moles/Vol] 4.1 mmol/L 3.7 - 5.3 mmol/L [facility] Protein [Mass/Vol] 6.7 g/dL 6.4 - 8.3 g/dL [facility] Sodium [Moles/Vol] 139 mmol/L 135 - 144 mmol/L [facility] Urea nitrogen [Mass/Vol] 32 mg/dL High 8 - 23 mg/dL [facility] Urea nitrogen/Creatinine [Mass ratio] 29 mg/mg High 9 - 20 [facility] Microscopic Urinalysison - [facility] Epithelial cells LM.HPF (Urine sed) [#/Area] 0 TO 2 /HPF [facility] RBC LM.HPF (Urine sed) [#/Area] 0 TO 2 [facility] WBC LM.HPF (Urine sed) [#/Area] NONE SEEN 0 /HPF [facility] Urinalysison 11-25-2022 Bilirubin Ql (U) Negative NEGATIVE [facility] Clarity (U) Clear Clear [facility] Color (U) Yellow Yellow [facility] Glucose Test strip (U) [Mass/Vol] Negative NEGATIVE [facility] Hemoglobin Auto test strip Ql (U) TRACE Abnormal NEGATIVE [facility] Interpretation and review of laboratory results Abnormal [facility] Ketones (U) [Mass/Vol] Negative NEGATIVE [facility] Leukocyte esterase Test strip Ql (U) Negative NEGATIVE [facility] Nitrite Ql (U) Negative NEGATIVE [facility] pH (U) 6.5 [pH] 5.0 - 8.0 [facility] Protein (U) [Mass/Vol] TRACE Abnormal NEGATIVE [facility] Specific gravity (U) [Rel density] 1.015 1.005 - 1.030 [facility] Urinalysis Comments [facility] Urobilinogen Qn (U) Normal Normal [facility] XR CHEST (2 VW)on 11-25-2022 No acute cardiopulmonary findings. [facility] EXAM: XR CHEST (2 VW ) INDICATION: Reason for exam:->Recently treated for Pneumonia. COMPARISON: 11/17/2022 TECHNIQUE: Chest radiograph(s) as above FINDINGS: Lines/Tubes: None Lungs: No pneumothorax, pleural effusion, or consolidation. Cardiomediastinal silhouette: Normal in size. Bones/Soft Tissues: No acute osseous abnormality. Right upper quadrant surgical clips. [facility] Bello Zheng MD - 11/25/2022 EXAM: XR CHEST (2 VW) INDICATION: Reason for exam:->Recently treated for Pneumonia. COMPARISON: 11/17/2022 TECHNIQUE: Chest radiograph(s) as above FINDINGS: Lines/Tubes: None Lungs: No pneumothorax, pleural effusion, or consolidation. Cardiomediastinal silhouette: Normal in size. Bones/Soft Tissues: No acute osseous abnormality. Right upper quadrant surgical clips. IMPRESSION: No acute cardiopulmonary findings. [employer] Phone: Radiology Study observation (narrative) [employer] Phone: XR CHEST (2 VW)Ordered By: Dejan Zheng on 11-25-2022 [employer] Phone: XR CHEST (2 VW)on 08-29-2022 FINDINGS/IMPRESSION: 1. Normal sized heart. 2. Clear lungs. [facility] EXAM: XR CHEST (2 VW ) HISTORY: Reason for exam:->HTN. COMPARISON: Portable chest 03/31/2020. [facility] Ishmael Valentin Jr., MD - 08/29/2022 EXAM: XR CHEST (2 VW) HISTORY: Reason for exam:->HTN. COMPARISON: Portable chest 03/31/2020. IMPRESSION: FINDINGS/IMPRESSION: 1. Normal sized heart. 2. Clear lungs. [employer] Phone: Radiology Study observation (narrative) [employer] Phone: XR CHEST (2 VW)Ordered By: Jo Valentin on 08-29-2022 [employer] Phone: Aspartate aminotransferase [ Enzymatic activity/volume] in Serum or PlasmaOrdered By: Obie Hylton on 08-21-2022 AST [Catalytic activity/Vol] 16 U/L 10-42 [facility] Automated erythrocytes count in urine sediment (number/area)Ordered By: Obie Hylton on 08-21-2022 RBC Auto (Urine sed) [#/Area] 1-2 [HPF] 0-4 [facility] Automated leukocytes count i n urine sediment (number/area)Ordered By: Obie Hylton on 08-21-2022 WBC Auto (Urine sed) [#/Area] 5-9 [HPF] 0-4 [facility] Basophils Auto (Bld) [#/Vol] Ordered By: Obie Hylton on 08-21-2022 Basophils (Bld) [#/Vol] 0.0 10*3/uL 0.0-0.2 [facility] Basophils/100 WBC Auto (Bld) Ordered By: Obie Hylton on 08-21-2022 Basophils/100 WBC (Bld) 0.3 % . [facility] Bilirubin Test strip Ql (U)O rdered By: Obie Hylton on 08-21-2022 Bilirubin Ql (U) Negative Negative [facility] Body fluid albumin measureme nt (mass/volume)Ordered By: Obie Hylton on 08-21-2022 Albumin (Body fld) [Mass/Vol] 3.6 g/dL 3.2-5.5 [facility] Cholesterol [Mass/volume] in Serum or PlasmaOrdered By: Kenneth Pascal on 08-21-2022 Cholesterol [Mass/Vol] 120 mg/dL 140-200 [facility] Comment on above: Chol less than 200 m g/dl low riskChol 201-239 mg/dl borderline riskChol 240 mg/dl and greater high risk Cholesterol in LDL Calc [Mas s/Vol]Ordered By: Kenneth Pascal on 08-21-2022 Cholesterol in LDL [Mass/Vol] 59 mg/dL 0-100 [facility] Comment on above: LDL ATP III CLASSIFI CATIONLDL less than 100 mg/dL OptimalLDL 100-129 mg/dL Near or above optimalLDL 130-159 mg/dL Borderline highLDL 160-189 mg/dL HighLDL greater than 189 mg/dL Very high Cholesterol in VLDL Calc [Cindy ss/Vol]Ordered By: Kenneth Pascal on 08-21-2022 Cholesterol in VLDL [Mass/Vol] 15 mg/dL [facility] Color Auto (U)Ordered By: Cindy tyler Warner on 08-21-2022 Color (U) Yellow Yellow [facility] Creatinine and Glomerular fi ltration rate.predicted panel (S/P/Bld)Ordered By: Obie Hylton on 08-21-2022 Creatinine [Mass/Vol] 1.19 mg/dL 0.44-1.03 [facility] Eosinophils Auto (Bld) [#/Vo l]Ordered By: Obie Hylton on 08-21-2022 Eosinophils (Bld) [#/Vol] 0.1 10*3/uL 0.0-0.45 [facility] Eosinophils/100 WBC Auto (Bl d)Ordered By: Obie Hylton on 08-21-2022 Eosinophils/100 WBC (Bld) 1.2 % . [facility] Erythrocyte distribution wid th Auto (RBC) [Ratio]Ordered By: Obie Hylton on 08-21-2022 Erythrocyte distribution width (RBC) [Ratio] 14.5 % 11.9-15.3 [facility] Erythrocyte sedimentation ra te by Photometric methodOrdered By: Obie Hylton on 08-21-2022 ESR Photometric method (Bld) [Velocity] 9 mm/hr 0-29 [facility] Estimated glomerular filtrat ion rate (GFR) non- AmericanOrdered By: Obie Hylton on 08-21-2022 GFR/1.73 sq M.predicted among non-blacks MDRD (S/P/Bld) [Vol rate/Area] 44 mL/Min [facility] Globulin Calc (S) [Mass/Vol] Ordered By: Obie Hylton on 08-21-2022 Globulin (S) [Mass/Vol] 2.6 g/dL [facility] Hematocrit Auto (Bld) [Volum e fraction]Ordered By: Obie Hylton on 08-21-2022 Hematocrit (Bld) [Volume fraction] 35.6 % 34.0-46.4 [facility] Hemoglobin [Mass/volume] in BloodOrdered By: Obie Hylton on 08-21-2022 Hemoglobin (Bld) [Mass/Vol] 11.9 g/dL 11.8-15.4 [facility] Ketones Auto test strip (U) [Mass/Vol]Ordered By: Obie Hylton on 08-21-2022 Ketones (U) [Mass/Vol] Negative Negative [facility] Laboratory - Chemistry and C hemistry - challengeOrdered By: Kenneth Pascal on 08-21-2022 Magnesium [Mass/Vol] 2.1 mg/dL 1.6-2.6 [facility] - UrinalysisOrder ed By: Obie Hylton on 08-21-2022 Hyaline casts LM Ql (Urine sed) 0-8 [LPF] 0-8 [facility] Leukocytes [#/volume] correc pepito for nucleated erythrocytes in Blood by Automated counOrdered By: Obie Hylton on 08-21-2022 WBC corrected for nucl RBC Auto (Bld) [#/Vol] 4.7 10*3/uL 3.8-11.6 [facility] Lymphocytes Auto (Bld) [#/Vo l]Ordered By: Obie Hylton on 08-21-2022 Lymphocytes (Bld) [#/Vol] 1.0 10*3/uL 1.00-4.8 [facility] Lymphocytes/100 WBC Auto (Bl d)Ordered By: Obie Hylton on 08-21-2022 Lymphocytes/100 WBC (Bld) 21.8 % . [facility] MCH Auto (RBC) [Entitic mass ]Ordered By: Obie Hylton on 08-21-2022 MCH (RBC) [Entitic mass] 33.9 pg 24.7-34.3 [facility] MCHC Auto (RBC) [Mass/Vol]Or dered By: Obie yHlton on 08-21-2022 MCHC (RBC) [Mass/Vol] 33.5 g/dL 32.0-35.0 [facility] MCV Auto (RBC) [Entitic vol] Ordered By: Obie Hylton on 08-21-2022 MCV (RBC) [Entitic vol] 101.2 fL 80-100 [facility] Monocytes Auto (Bld) [#/Vol] Ordered By: Obie Hylton on 08-21-2022 Monocytes (Bld) [#/Vol] 0.4 10*3/uL 0.0-0.8 [facility] Monocytes/100 WBC Auto (Bld) Ordered By: Obie Hylton on 08-21-2022 Monocytes/100 WBC (Bld) 8.2 % . [facility] Neutrophils Auto (Bld) [#/Vo l]Ordered By: Obie Hylton on 08-21-2022 Neutrophils (Bld) [#/Vol] 3.2 10*3/uL 1.8-7.7 [facility] Neutrophils/100 WBC Auto (Bl d)Ordered By: Obie Hylton on 08-21-2022 Neutrophils/100 WBC (Bld) 68.5 % . [facility] Nitrite Test strip Ql (U)Ord ered By: Obie Hylton on 08-21-2022 Nitrite Ql (U) Negative Negative [facility] No Panel InformationOrdered By: Kenneth Pascal on 08-21-2022 25-Hydroxy Vitamin D Total 43.9 ng/mL 30-100 [facility] Comment on above: VITAMIN D STATUS 25( [place])VITAMIN D RANGE (ng/mL) Deficient <20 Insufficient 20 to <30Sufficient 30 to 100Reference: Jennifer MF,Babs LUCERO, Blank GALLARDO, et al. Evaluation,treatment, and prevention of vitamin D deficiency; an Endocrine Society clinical practice guideline. JCEM. 2010; 96(7):1911-30. No Panel InformationOrdered By: Obie Hylton on 08-21-2022 Estimated GFR () 53 mL/Min [facility] Comment on above: GFR estimated refere nce range: According to KDOQI guidelines, <60 ml/min/1.73m2 is sufficient to diagnose a patient with chronic kidney disease. Pharmacy Creatinine Clearance (Chem N/A [facility] Nucleated erythrocytes [Pres ence] in Blood by Automated countOrdered By: Obie Hylton on 08-21-2022 Nucleated RBC Auto Ql (Bld) 0.2 /100{WBC} 0-0.5 [facility] Platelet mean volume Auto (B ld) [Entitic vol]Ordered By: Obie Hylton on 08-21-2022 Platelet mean volume (Bld) [Entitic vol] 9.0 fL 6.3-10.7 [facility] Platelets Auto (Bld) [#/Vol] Ordered By: Obie Hylton on 08-21-2022 Platelets (Bld) [#/Vol] 188 10*3/uL 150-450 [facility] Protein Auto test strip (U) [Mass/Vol]Ordered By: Obie Hylton on 08-21-2022 Protein (U) [Mass/Vol] Negative Negative [facility] Protein [Mass/volume] in Ser um or PlasmaOrdered By: Obie Hylton on 08-21-2022 Protein [Mass/Vol] 6.2 g/dL 6.1-7.9 [facility] RBC Auto (Bld) [#/Vol]Ordere d By: Obie Hylton on 08-21-2022 RBC (Bld) [#/Vol] 3.52 10*6/uL 3.60-5.00 [facility] Serum or plasma alanine negro otransferase measurement without P-5'-P (enzymatic activiOrdered By: Obie Hylton on 08-21-2022 ALT No additional P-5'-P [Catalytic activity/Vol] 12 U/L 10-60 [facility] Serum or plasma albumin/glob ulin mass ratioOrdered By: Obie Hylton on 08-21-2022 Albumin/Globulin [Mass ratio] 1.4 {ratio} [facility] Serum or plasma alkaline glen sphatase measurement (enzymatic activity/volume)Ordered By: Obie Hylton on 08-21-2022 ALP [Catalytic activity/Vol] 58 U/L 32-92 [facility] Serum or plasma anion gap de terminationOrdered By: Obie Hylton on 08-21-2022 Anion gap [Moles/Vol] 13.5 mmol/L 6.0-15.0 [facility] Serum or plasma calcium olivia urement (mass/volume)Ordered By: Obie Hylton on 08-21-2022 Calcium [Mass/Vol] 9.1 mg/dL 8.2-10.2 [facility] Serum or plasma chloride wilner surement (moles/volume)Ordered By: Obie Hylton on 08-21-2022 Chloride [Moles/Vol] 105 mmol/L 95-114 [facility] Serum or plasma glucose olivia urement (mass/volume)Ordered By: Obie Hylton on 08-21-2022 Glucose [Mass/Vol] 91 mg/dL 70-100 [facility] Comment on above: ADA recommended refe rence rangeRandom Glucose Reference Range is dependent on time and content of last meal. Glucose of more than 200 mg/dL in a nonstressed, ambulatory subject supports the diagnosis of Diabetes Mellitus. Serum or plasma high density lipoprotein (HDL) cholesterol measurementOrdered By: Kenneth Pascal on 08-21-2022 Cholesterol in HDL [Mass/Vol] 45 mg/dL 35-85 [facility] Comment on above: HDL CHOL ATP-III CLA SSIFICATION Cardiovascular RiskHDL > or equal to 60 mg/dL LOWHDL < 40 mg/dL HIGH Serum or plasma potassium me asurement (moles/volume)Ordered By: Obie Hylton on 08-21-2022 Potassium [Moles/Vol] 4.1 mmol/L 3.5-5.1 [facility] Serum or plasma sodium measu rement (moles/volume)Ordered By: Obie Hylton on 08-21-2022 Sodium [Moles/Vol] 138 mmol/L 136-146 [facility] Serum or plasma total biliru bin measurement (mass/volume)Ordered By: Obie Hylton on 08-21-2022 Bilirubin [Mass/Vol] 0.3 mg/dL 0.3-1.2 [facility] Serum or plasma total carbon dioxide measurement (moles/volume)Ordered By: Obie Hylton on 08-21-2022 CO2 [Moles/Vol] 23.6 mmol/L 22.0-30.0 [facility] Serum or plasma total choles terol/high density lipoprotein (HDL) cholesterol mass ratOrdered By: Kenneth Pascal on 08-21-2022 Cholesterol.total/Cho lesterol in HDL [Mass ratio] 2.7 {ratio} <5.0 [facility] Serum or plasma urea nitroge n measurement (mass/volume)Ordered By: Obie Hylton on 08-21-2022 Urea nitrogen [Mass/Vol] 25 mg/dL 9-23 [facility] Specific gravity Auto test s trip (U) [Rel density]Ordered By: Obie Hylton on 08-21-2022 Specific gravity (U) [Rel density] 1.014 1.001-1.03 0 [facility] Squamous epithelial cells de tection in urine sediment by light microscopyOrdered By: Obie Hylton on 08-21-2022 Epithelial cells.squamous LM Ql (Urine sed) 5-9 [HPF] 0-2 [facility] TSH DL <= 0.005 mIU/L QnOrde red By: Kenneth Pascal on 08-21-2022 TSH Qn 1.14 m[IU]/L 0.45-5.33 [facility] Triglyceride [Mass/volume] i n Serum or PlasmaOrdered By: Kenneth Pascal on 08-21-2022 Triglyceride [Mass/Vol] 78 mg/dL 35-149 [facility] Comment on above: TRIG ATP III CLASSIF ICATIONTRIG less than 150 mg/dL NormalTRIG 150-199 mg/dL Borderline highTRIG 200-500 mg/dL High TRIG greater than 500 mg/dL Very highStandard traceable to the Center for Disease Conrtrol and Prevention (CDC) test method. Urine bacteria detection by automated methodOrdered By: Obie Hylton on 08-21-2022 Bacteria Auto Ql (U) None seen None Seen [facility] Urine clarity by refractomet ry automatedOrdered By: Obie Hylton on 08-21-2022 Clarity Refractometry automated (U) Clear Clear [facility] Urine glucose measurement by automated test strip (mass/volume)Ordered By: Obie Hylton on 08-21-2022 Glucose Auto test strip (U) [Mass/Vol] Normal mg/dL Normal [facility] Urine hemoglobin detection b y automated test stripOrdered By: Obie Hylton on 08-21-2022 Hemoglobin Auto test strip Ql (U) Trace Negative [facility] Urine leukocyte esterase det ection by automated test stripOrdered By: Obie Hylton on 08-21-2022 Leukocyte esterase Auto test strip Ql (U) 1+ Negative [facility] Urobilinogen Auto test strip (U) [Mass/Vol]Ordered By: Obie Hylton on 08-21-2022 Urobilinogen (U) [Mass/Vol] Normal mg/dL Normal [facility] WBC Auto (Bld) [#/Vol]Ordere d By: Obie Hylton on 08-21-2022 WBC (Bld) [#/Vol] 4.7 10*3/uL 3.8-11.6 [facility] pH Auto test strip (U)Ordere d By: Obie Hylton on 08-21-2022 pH (U) 7.0 [pH] 5.0-9.0 [facility] CHEMISTRYOrdered By: SYSTEM SYSTEM on 07-10-2022 Anion gap [Moles/Vol] 12 mmol/L Normal 6 - 16 mEq/L [facility] Calcium [Mass/Vol] 8.8 mg/dL Low 8.9 - 11. 1 mg/dL [facility] Chloride [Moles/Vol] 108 mmol/L Normal 101 - 1 11 mmol/L [facility] CO2 [Moles/Vol] 24 mmol/L Normal 21 - 31 mmol/L [facility] Cobalamin (Vitamin B12) [Mass/Vol] pg/mL Normal 50 - 1500 pg/mL [facility] Creatinine [Mass/Vol] 1.3 mg/dL Normal 0.5 - 1.3 mg/dL [facility] GFR/1.73 sq M.predicted among blacks MDRD (S/P/Bld) [Vol rate/Area] 48 mL/min/1.73 m2 Low >=59mL/min /1.73 m2 [facility] Chem S GFR/1.73 sq M.predicted among non-blacks MDRD (S/P/Bld) [Vol rate/Area] 40 mL/min/1.73 m2 Low >=59mL/min /1.73 m2 [facility] Glucose [Mass/Vol] 97 mg/dL Normal 55 - 199 mg/dL [facility] Magnesium [Mass/Vol] 2.2 mg/dL Normal 1.3 - 2 .4 mg/dL [facility] Potassium [Moles/Vol] 4.4 mmol/L Normal 3.5 - 5.3 mmol/L [facility] Sodium [Moles/Vol] 140 mmol/L Normal 135 - 145 mmol/L [facility] Urea nitrogen [Mass/Vol] 37 mg/dL High 5 - 21 mg/dL [facility] Urea nitrogen/Creatinine [Mass ratio] 28 mg/mg High 10 - 20 [facility] Albumin [Mass/volume] in Ser um or PlasmaOrdered By: Obie Hylton on 02-22-2022 Albumin [Mass/Vol] 3.5 g/dL 3.2-5.5 [facility] Automated erythrocytes count in urine sediment (number/area)Ordered By: Obie Hylton on 02-22-2022 RBC Auto (Urine sed) [#/Area] 3-4 [HPF] 0-4 [facility] Automated leukocytes count i n urine sediment (number/area)Ordered By: Obie Hylton on 02-22-2022 WBC Auto (Urine sed) [#/Area] 1-2 [HPF] 0-4 [facility] Basophils Auto (Bld) [#/Vol] Ordered By: Obie Hylton on 02-22-2022 Basophils (Bld) [#/Vol] 0.0 10*3/uL 0.0-0.2 [facility] Basophils/100 WBC Auto (Bld) Ordered By: Obie Hylton on 02-22-2022 Basophils/100 WBC (Bld) 0.2 % . [facility] Bilirubin Test strip Ql (U)O rdered By: Obie Hylton on 02-22-2022 Bilirubin Ql (U) Negative Negative [facility] Blood hemoglobin measurement (mass/volume)Ordered By: Obie Hylton on 02-22-2022 Hemoglobin (Bld) [Mass/Vol] 12.3 g/dL 11.8-15.4 [facility] Blood leukocytes automated c ount (number/volume)Ordered By: Obie Hylton on 02-22-2022 WBC (Bld) [#/Vol] 5.1 10*3/uL 4.5-11.0 [facility] Color Auto (U)Ordered By: Cindy Hylton on 02-22-2022 Color (U) Yellow Yellow [facility] Creatinine and Glomerular fi ltration rate.predicted panel (S/P/Bld)Ordered By: Obie Hylton on 02-22-2022 Creatinine [Mass/Vol] 1.16 mg/dL 0.44-1.03 [facility] Eosinophils Auto (Bld) [#/Vo l]Ordered By: Obie Hylton on 02-22-2022 Eosinophils (Bld) [#/Vol] 0.1 10*3/uL 0.0-0.45 [facility] Eosinophils/100 WBC Auto (Bl d)Ordered By: Obie Hylton on 02-22-2022 Eosinophils/100 WBC (Bld) 1.4 % . [facility] Erythrocyte distribution wid th Auto (RBC) [Ratio]Ordered By: Obie Hylton on 02-22-2022 Erythrocyte distribution width (RBC) [Ratio] 15.3 % 11.9-15.3 [facility] Estimated glomerular filtrat ion rate (GFR) non- AmericanOrdered By: Obie Hylton on 02-22-2022 GFR/1.73 sq M.predicted among non-blacks MDRD (S/P/Bld) [Vol rate/Area] 45 mL/Min [facility] Globulin Calc (S) [Mass/Vol] Ordered By: Obie Hylton on 02-22-2022 Globulin (S) [Mass/Vol] 2.5 g/dL [facility] Hematocrit Auto (Bld) [Volum e fraction]Ordered By: Obie Hylton on 02-22-2022 Hematocrit (Bld) [Volume fraction] 36.6 % 34.0-46.4 [facility] Ketones Auto test strip (U) [Mass/Vol]Ordered By: Obie Hylton on 02-22-2022 Ketones (U) [Mass/Vol] Negative Negative [facility] Laboratory - Hematology and Cell countsOrdered By: Obie Hylton on 02-22-2022 Nucleated RBC/100 WBC (Bld) [Ratio] 0.0 % 0-0.5 [facility] Laboratory - UrinalysisOrder ed By: Obie Hylton on 02-22-2022 Hyaline casts LM Ql (Urine sed) None seen [LPF] 0-8 [facility] Lymphocytes Auto (Bld) [#/Vo l]Ordered By: Obie Hylton on 02-22-2022 Lymphocytes (Bld) [#/Vol] 1.1 10*3/uL 1.00-4.8 [facility] Lymphocytes/100 WBC Auto (Bl d)Ordered By: Obie Hylton on 02-22-2022 Lymphocytes/100 WBC (Bld) 22.2 % . [facility] MCH Auto (RBC) [Entitic mass ]Ordered By: Obie Hylton on 02-22-2022 MCH (RBC) [Entitic mass] 33.0 pg 24.7-34.3 [facility] MCHC Auto (RBC) [Mass/Vol]Or dered By: Obie Hylton on 02-22-2022 MCHC (RBC) [Mass/Vol] 33.5 g/dL 32.0-35.0 [facility] MCV Auto (RBC) [Entitic vol] Ordered By: Obie Hylton on 02-22-2022 MCV (RBC) [Entitic vol] 98.5 fL 80-100 [facility] Monocytes Auto (Bld) [#/Vol] Ordered By: Obie Hylton on 02-22-2022 Monocytes (Bld) [#/Vol] 0.5 10*3/uL 0.0-0.8 [facility] Monocytes/100 WBC Auto (Bld) Ordered By: Obie Hylton on 02-22-2022 Monocytes/100 WBC (Bld) 9.0 % . [facility] Neutrophils Auto (Bld) [#/Vo l]Ordered By: Obie Hylton on 02-22-2022 Neutrophils (Bld) [#/Vol] 3.5 10*3/uL 1.8-7.7 [facility] Neutrophils/100 WBC Auto (Bl d)Ordered By: Obie Hylton on 02-22-2022 Neutrophils/100 WBC (Bld) 67.2 % . [facility] Nitrite Test strip Ql (U)Ord ered By: Obie Hylton on 02-22-2022 Nitrite Ql (U) Negative Negative [facility] No Panel InformationOrdered By: Obie Hylton on 02-22-2022 Estimated GFR () 55 mL/Min [facility] Comment on above: GFR estimated refere nce range: According to KDOQI guidelines, <60 ml/min/1.73m2 is sufficient to diagnose a patient with chronic kidney disease. Pharmacy Creatinine Clearance (Chem N/A [facility] Platelet mean volume Auto (B ld) [Entitic vol]Ordered By: Obie Hylton on 02-22-2022 Platelet mean volume (Bld) [Entitic vol] 8.7 fL 6.3-10.7 [facility] Platelets Auto (Bld) [#/Vol] Ordered By: Obie Hylton on 02-22-2022 Platelets (Bld) [#/Vol] 182 10*3/uL 150-450 [facility] Protein Auto test strip (U) [Mass/Vol]Ordered By: Obie Hylton on 02-22-2022 Protein (U) [Mass/Vol] Negative Negative [facility] Protein [Mass/volume] in Ser um or PlasmaOrdered By: Obie Hylton on 02-22-2022 Protein [Mass/Vol] 6.0 g/dL 6.1-7.9 [facility] RBC Auto (Bld) [#/Vol]Ordere d By: Obie Hylton on 02-22-2022 RBC (Bld) [#/Vol] 3.72 10*6/uL 3.60-5.00 [facility] Serum or plasma alanine negro otransferase measurement without P-5'-P (enzymatic activiOrdered By: Obie Hylton on 02-22-2022 ALT No additional P-5'-P [Catalytic activity/Vol] 14 U/L 10-60 [facility] Serum or plasma albumin/glob ulin mass ratioOrdered By: Obie Hylton on 02-22-2022 Albumin/Globulin [Mass ratio] 1.4 {ratio} [facility] Serum or plasma alkaline glen sphatase measurement (enzymatic activity/volume)Ordered By: Obie Hylton on 02-22-2022 ALP [Catalytic activity/Vol] 54 U/L 32-92 [facility] Serum or plasma aspartate am inotransferase measurement (enzymatic activity/volume)Ordered By: Obie Hylton on 02-22-2022 AST [Catalytic activity/Vol] 17 U/L 10-42 [facility] Serum or plasma calcium olivia urement (mass/volume)Ordered By: Obie Hylton on 02-22-2022 Calcium [Mass/Vol] 9.0 mg/dL 8.2-10.2 [facility] Serum or plasma chloride wilner surement (moles/volume)Ordered By: Obie Hylton on 02-22-2022 Chloride [Moles/Vol] 107 mmol/L 95-114 [facility] Serum or plasma glucose olivia urement (mass/volume)Ordered By: Obie Hylton on 02-22-2022 Glucose [Mass/Vol] 90 mg/dL 70-100 [facility] Comment on above: ADA recommended refe rence [...] on 02-22-2022 Potassium [Moles/Vol] 4.2 mmol/L 3.5-5.1 [facility] Serum or plasma sodium measu rement (moles/volume)Ordered By: Obie Hylton on 02-22-2022 Sodium [Moles/Vol] 139 mmol/L 136-146 [facility] Serum or plasma total biliru bin measurement (mass/volume)Ordered By: Obie Hylton on 02-22-2022 Bilirubin [Mass/Vol] 0.5 mg/dL 0.3-1.2 [facility] Serum or plasma total carbon dioxide measurement (moles/volume)Ordered By: Obie Hylton on 02-22-2022 CO2 [Moles/Vol] 24.9 mmol/L 22.0-30.0 [facility] Serum or plasma urea nitroge n measurement (mass/volume)Ordered By: Obie Hylton on 02-22-2022 Urea nitrogen [Mass/Vol] 25 mg/dL 9- [facility] Specific gravity Auto test s trip (U) [Rel density]Ordered By: Obie Hylton on 02-22-2022 Specific gravity (U) [Rel density] 1.015 1.001-1.03 0 [facility] Squamous epithelial cells de tection in urine sediment by light microscopyOrdered By: Obie Hylton on 02-22-2022 Epithelial cells.squamous LM Ql (Urine sed) 0-1 [HPF] 0-2 [facility] Urine bacteria detection by automated methodOrdered By: Obie Hylton on 02-22-2022 Bacteria Auto Ql (U) None seen None Seen [facility] Urine clarity by refractomet ry automatedOrdered By: Obie Hylton on 02-22-2022 Clarity Refractometry automated (U) Clear Clear [facility] Urine glucose measurement by automated test strip (mass/volume)Ordered By: Obie Hylton on 02-22-2022 Glucose Auto test strip (U) [Mass/Vol] Normal mg/dL Normal [facility] Urine hemoglobin detection b y automated test stripOrdered By: Obie Hylton on 02-22-2022 Hemoglobin Auto test strip Ql (U) 1+ Negative [facility] Urine leukocyte esterase det ection by automated test stripOrdered By: Obie Hylton on 02-22-2022 Leukocyte esterase Auto test strip Ql (U) Negative Negative [facility] Urobilinogen Auto test strip (U) [Mass/Vol]Ordered By: Obie Hylton on 02-22-2022 Urobilinogen (U) [Mass/Vol] Normal mg/dL Normal [facility] pH Auto test strip (U)Ordere d By: Obie Hylton on 02-22-2022 pH (U) 6.0 [pH] 5.0-9.0 [facility] ANA WU DIGITAL SCREEN BILA TERALon 02-01-2022 BI-RADS 1 - Negative, no evidence of malignancy. Normal interval followup in 12 months. OVERALL ASSESSMENT- NEGATIVE A letter of notification will be sent to the patient regarding the results. [facility] HISTORY: Screening. Family history of breast carcinoma. TECHNIQUE: Bilateral digital screening mammogram with CAD. 2-D and 3-D tomography. FINDINGS: Two views of each breast show scattered areas of fibroglandular density. No change from prior studies, most recent 01/20/2021. Suspicious calcifications: None. Suspicious mass: None. (If skin markers were applied, circles represent skin lesions and linear markers represent scars.) [facility] WU DIGITAL SCREEN BILA TERALOrdered By: Ishmael Valentin on 02-01-2022 [employer] Phone: [facility] WU DIGITAL SCREEN BILA TERALon 01-31-2022 Radiology Study observation (narrative) [employer] Phone: XR SHOULDER RIGHT (MIN 2 VIE WS)on 12-02-2021 FINDINGS/IMPRESSION: 1. No significant change since 08/10/2021. 2. Mild AC joint osteoarthrosis remains, with small marginal osteophytes. 3. Osseous ridging from chronic rotator cuff tendinopathy and small reactive subcortical cysts or surgical drill tracks remain in the greater tuberosity of the humerus. 4. No fracture, malalignment, or other acute bony abnormality is seen. [facility] CLINICAL HISTORY: Hi story of right rotator cuff repair surgery (Z98.890). RIGHT SHOULDER 3 VIEWS: COMPARISON: 08/10/2021. [facility] Norm Mcdonnell MD - 12/02/2021 CLINICAL HISTORY: History of right rotator cuff repair surgery (Z98.890). RIGHT SHOULDER 3 VIEWS: COMPARISON: 08/10/2021. IMPRESSION: FINDINGS/IMPRESSION: 1. No significant change since 08/10/2021. 2. Mild AC joint osteoarthrosis remains, with small marginal osteophytes. 3. Osseous ridging from chronic rotator cuff tendinopathy and small reactive subcortical cysts or surgical drill tracks remain in the greater tuberosity of the humerus. 4. No fracture, malalignment, or other acute bony abnormality is seen. [employer] Phone: XR SHOULDER RIGHT (MIN 2 VIE WS)Ordered By: Norm Mcdonnell on 12-02-2021 [employer] Phone: XR SHOULDER RIGHT (MIN 2 VIE WS)on 11-30-2021 Radiology Study observation (narrative) VIANNEY OLVERA [facility] [employer] Work Phone: Microscopic Urinalysison - [facility] Bacteria, UA TRACE Abnormal None [facility] Epithelial Cells UA 0 TO 2 [facility] Interpretation and review of laboratory results Abnormal [facility] RBC, UA 0 TO 2 [facility] WBC, UA 0 TO 2 [facility] Urinalysis with Reflex to Cu ltureon 10-26-2021 Bilirubin Urine Negative NEGATIVE [facility] Color, UA Yellow Yellow [facility] Glucose, Ur Negative NEGATIVE [facility] Interpretation and review of laboratory results Abnormal [facility] Ketones Ql (U) Negative NEGATIVE [facility] Leukocyte esterase Test strip Ql (U) Negative NEGATIVE [facility] Nitrite, Urine Negative NEGATIVE [facility] pH, UA 5.5 [facility] Protein, UA Negative NEGATIVE [facility] Specific [place], UA 1.025 [facility] Turbidity UA Clear Clear [facility] Urine Hgb 2+ Abnormal NEGATIVE [facility] Urobilinogen, Urine Normal Normal [facility] Microscopic Urinalysison - [facility] Bacteria, UA 1+ Abnormal None [facility] Epithelial Cells UA 2 TO 5 /HPF [facility] Interpretation and review of laboratory results Abnormal [facility] RBC, UA 2 TO 5 [facility] WBC, UA 20 TO 50 0 /HPF [facility] Yeast, UA OCCASIONAL Abnormal None [facility] Urinalysison 10-14-2021 Bilirubin Urine Negative NEGATIVE [facility] Color, UA Yellow Yellow [facility] Glucose, Ur Negative NEGATIVE [facility] Interpretation and review of laboratory results Abnormal [facility] Ketones Ql (U) Negative NEGATIVE [facility] th Leukocyte esterase Test strip Ql (U) 2+ Abnormal NEGATIVE [facility] Nitrite, Urine Negative NEGATIVE [facility] pH, UA 6.0 [facility] Protein, UA TRACE Abnormal NEGATIVE [facility] Specific [place], UA 1.020 [facility] Turbidity UA Hazy Abnormal Clear [facility] Urinalysis Comments [facility] Urine Hgb 2+ Abnormal NEGATIVE [facility] Urobilinogen, Urine Normal Normal [facility] XR SHOULDER RIGHT (MIN 2 VIE WS)on 08-10-2021 Mild degenerative changes. No acute process. [facility] HISTORY: Pain status post right shoulder arthroscopy TECHNIQUE: 3 views of the right shoulder were obtained COMPARISON: 04/27/2021 FINDINGS: There are mild degenerative changes of acromioclavicular joint. No fracture, dislocation or acute osseous abnormality seen. [facility] John Jauregui MD - 08/10/2021 HISTORY: Pain status post right shoulder arthroscopy TECHNIQUE: 3 views of the right shoulder were obtained COMPARISON: 04/27/2021 FINDINGS: There are mild degenerative changes of acromioclavicular joint. No fracture, dislocation or acute osseous abnormality seen. IMPRESSION: Mild degenerative changes. No acute process. [employer] Phone: Radiology Study observation (narrative) [employer] Phone: XR SHOULDER RIGHT (MIN 2 VIE WS)Ordered By: John Jauregui on 08-10-2021 [employer] Phone: MRI Shoulder w/o Righton MRI Shoulder [...] by Grayson Coronado on 07/12/[address] [facility] [employer] XR SHOULDER RIGHT (MIN 2 VIE WS)Ordered By: Angelito Meyer on 04-27-2021 Degenerative changes not unusual for age at the acromioclavicular joint. [employer] Phone: EXAM: XR SHOULDER RI GHT (MIN 2 VIEWS) HISTORY: M25.511. 75-year-old female right shoulder pain. COMPARISON: None. TECHNIQUE: 3 views right shoulder, 4 images. FINDINGS: Moderate degenerative change acromioclavicular joint. Minimal narrowing glenohumeral joint. Negative for calcific bursitis. [employer] Phone: Magdiel, Mhpn Incoming R adiant Results From [employer] love [employer] you/[employer] - 04/27/2021 12:21 PM EDT EXAM: XR SHOULDER RIGHT (MIN 2 VIEWS) HISTORY: M25.511. 75-year-old female right shoulder pain. COMPARISON: None. TECHNIQUE: 3 views right shoulder, 4 images. FINDINGS: Moderate degenerative change acromioclavicular joint. Minimal narrowing glenohumeral joint. Negative for calcific bursitis. IMPRESSION: Degenerative changes not unusual for age at the acromioclavicular joint. [employer] Phone: [employer] Phone: CBCOrdered By: Roni Dahl on 01-09-2021 Hematocrit (Bld) [Volume fraction] 33.2 % Low 36 - 46 % [employer] Phone: Hemoglobin.gastrointe stinal spec 1 Ql (Stl) 11.5 g/dL Low 12.0 - 16.0 g/dL [employer] Phone: Interpretation and review of laboratory results Abnormal [employer] Phone: MCH (RBC) [Entitic mass] 31.6 pg 26 - 34 pg [employer] Phone: MCHC (RBC) [Mass/Vol] 34.7 g/dL 31 - 3 7 g/dL [employer] Phone: MCV (RBC) [Entitic vol] 91.2 fL 80 - 100 fL [employer] Phone: NRBC Automated NOT REPORTED per 100 WBC [employer] Phone: Platelet distribution width (Bld) [Ratio] 15.6 % High 12.1 - 15.2 % [employer] Phone: Platelet mean volume (Bld) [Entitic vol] NOT REPORTED 6.0 - 12.0 fL [employer] Phone: Platelets (Bld) [#/Vol] 223 10*3/uL [employer] Phone: RBC (Bld) [#/Vol] 3.64 10*6/uL Low 4.0 - 5.2 m/uL [employer] Phone: WBC (Bld) [#/Vol] 4.1 10*3/uL [employer] Phone: [employer] Phone: CBCOrdered By: Roni Dahl on 12-09-2020 Hematocrit (Bld) [Volume fraction] 34.2 % Low 36 - 46 % [employer] Phone: Hemoglobin.gastrointe stinal spec 1 Ql (Stl) 11.6 g/dL Low 12.0 - 16.0 g/dL [employer] Phone: Interpretation and review of laboratory results Abnormal [employer] Phone: MCH (RBC) [Entitic mass] 30.6 pg 26 - 34 pg [employer] Work Phone: MCHC (RBC) [Mass/Vol] 33.8 g/dL 31 - 3 7 g/dL [employer] Phone: MCV (RBC) [Entitic vol] 90.7 fL 80 - 100 fL [employer] Work Phone: NRBC Automated NOT REPORTED per 100 WBC [employer] Phone: Platelet distribution width (Bld) [Ratio] 14.1 % 12.1 - 15.2 % [employer] Phone: Platelet mean volume (Bld) [Entitic vol] NOT REPORTED 6.0 - 12.0 fL [employer] Phone: Platelets (Bld) [#/Vol] 365 10*3/uL [employer] Work Phone: RBC (Bld) [#/Vol] 3.78 10*6/uL Low 4.0 - 5.2 m/uL [employer] Work Phone: WBC (Bld) [#/Vol] 6.3 10*3/uL [employer] Work Phone: [employer] Work Phone: CBC Auto DifferentialOrdered By: Darryl Sandoval on 11-27-2020 [employer] Eos # 0.16 [facility] Work Phone: Absolute Immature Granulocyte 0.35 High [employer] Work Phone: Absolute Lymph # 1.23 [facility] Work Phone: Absolute [place] # 0.95 [facility] Work Phone: Basophils (Bld) [#/Vol] 10*3/uL [employer] Work Phone: Basophils/100 WBC (Bld) 0 % 0 - 2 % [employer] Phone: Differential Type NOT REPORTED [employer] Phone: Eosinophils/100 WBC (Bld) 2 % 1 - 4 % [employer] Phone: Hematocrit (Bld) [Volume fraction] 34.3 % Low 36.3 - 47.1 % [employer] Phone: Hemoglobin.gastrointe stinal spec 1 Ql (Stl) 11.0 g/dL Low 11.9 - 15.1 g/dL [employer] Phone: Immature granulocytes/100 WBC (Bld) 5 % High 0 [employer] Phone: Interpretation and review of laboratory results Abnormal [employer] Phone: Lymphocytes/100 WBC (Bld) 16 % Low 24 - 43 % [employer] Phone: MCH (RBC) [Entitic mass] 30.5 pg 25.2 - 33.5 pg [employer] Phone: MCHC (RBC) [Mass/Vol] 32.1 g/dL 28.4 - 34.8 g/dL [employer] Phone: MCV (RBC) [Entitic vol] 95.0 fL 82.6 - 102.9 fL [employer] Phone: Monocytes/100 WBC (Bld) 12 % 3 - 12 % [employer] Phone: NRBC Automated 0.0 0.0 per 100 WBC [employer] Phone: Platelet distribution width (Bld) [Ratio] 13.3 % 11.8 - 14.4 % [employer] Phone: Platelet Estimate NOT REPORTED [employer] Phone: Platelet mean volume (Bld) [Entitic vol] 9.7 fL 8.1 - 13.5 fL [employer] Phone: Platelets (Bld) [#/Vol] 242 10*3/uL [employer] Phone: RBC (Bld) [#/Vol] 3.61 10*6/uL Low 3.95 - 5.11 m/uL [employer] Phone: RBC (Bld) [#/Vol] NOT REPORTED [employer] Phone: Segmented neutrophils/100 WBC (Bld) 65 % 36 - 65 % [employer] Phone: Segs [employer] 5.07 [employer] Work Phone: WBC (Bld) [#/Vol] 7.8 10*3/uL [employer] Phone: WBC (Bld) [#/Vol] NOT REPORTED [employer] Phone: [employer] Phone: COVID-19, RapidOrdered By: Vazquez Sandoval on 11-27-2020 SARS-CoV-2 (COVID-19) RNA JUAQUIN+probe Ql (Unsp spec) Not detected Not Detected [employer] Phone: Comment on above: Rapid NAAT: The [...] management decisions. Fact sheet for Healthcare Providers: https://www.fda.gov/media/882211/download Fact sheet for Patients: https://www.fda.gov/media/049789/download Methodology: Isothermal Nucleic Acid Amplification Specimen Description .NASOPHARYNGEAL SWAB [employer] Phone: [employer] Phone: Comprehensive Metabolic Pane lOrdered By: Darryl Sandoval on 11-27-2020 Albumin [Mass/Vol] 3 g/dL Low 3.5 - 5.2 g/dL [employer] Phone: Albumin/Globulin [Mass ratio] 0.8 {ratio} Low [employer] Phone: ALP (Bld) [Catalytic activity/Vol] 154 U/L High 35 - 104 U/L [employer] Phone: ALT [Catalytic activity/Vol] 45 U/L High 5 - 33 U/L [employer] Phone: Anion gap [Moles/Vol] 11 mmol/L 9 - 17 mmol/L [employer] Phone: AST [Catalytic activity/Vol] 44 U/L High <32 [employer] Phone: Bilirubin [Mass/Vol] 0.35 mg/dL 0.3 - 1 .2 mg/dL [employer] Phone: Calcium [Mass/Vol] 9.4 mg/dL 8.6 - 10. 4 mg/dL [employer] Phone: Chloride [Moles/Vol] 103 mmol/L 98 - 10 7 mmol/L [employer] Phone: CO2 [Moles/Vol] 21 mmol/L 20 - 31 mmol/L [employer] Phone: Creatinine [Mass/Vol] 1 mg/dL High 0.50 - 0.90 mg/dL [employer] Phone: Free PSA/Total PSA [Mass fraction] 7.0 g/dL 6.4 - 8.3 g/dL [employer] Phone: GFR >60 >60 mL/min [facility] Phone: GFR Non- 54 mL/min Low >60 [employer] Phone: Glucose [Mass/Vol] 87 mg/dL 70 - 99 mg/dL [employer] Phone: Interpretation and review of laboratory results Abnormal [employer] Phone: Potassium [Moles/Vol] 4.1 mmol/L 3.7 - 5.3 mmol/L [employer] Phone: Sodium [Moles/Vol] 135 mmol/L 135 - 144 mmol/L [employer] Phone: Urea nitrogen (BldV) [Mass/Vol] 16 mg/dL 8 - 23 mg/dL [employer] Phone: Urea nitrogen/Creatinine (Bld) [Mass ratio] 16 [employer] Phone: [employer] Phone: Laboratory - Chemistry and C hemistry - challengeOrdered By: Darryl Sandoval on 11-27-2020 GFR/1.73 sq M.predicted MDRD (S/P/Bld) [Vol rate/Area] [employer] Phone: Comment on above: Average GFR for 70 o r more years old: 75 mL/min/1.73sq m Chronic Kidney Disease: <60 mL/min/1.73sq m Kidney failure: <15 mL/min/1.73sq m eGFR calculated using average adult body mass. Additional eGFR calculator available at: http://www.mgMEDIA.[employer].com/multiple_crcl_2012.htm Stage 1: Some kidney damage normal GFR Stage 2: Mild kidney damage GFR 60-89 Stage 3: Moderate kidney damage GFR 30-59 Stage 4: Severe kidney damage GFR 15-29 Stage 5: Severe kidney damage GFR <15 ESRD - chronic treatment by dialysis or transplant LipaseOrdered By: Darryl farias on 11-27-2020 Lipase [Catalytic activity/Vol] 24 U/L 13 - 60 U/L [facility] [employer] Work Phone: [facility] Work Phone: MagnesiumOrdered By: Darryl Sandoval on 11-27-2020 Magnesium [Mass/Vol] 2.3 mg/dL 1.6 - 2 .6 mg/dL [facility] [employer] Work Phone: [facility] [employer] Work Phone: Urinalysis with MicroscopicO rdered By: Darryl Sandoval on 11-27-2020 - [facility] [employer] Work Phone: Amorphous, UA NOT REPORTED None [facility] Work Phone: Bacteria, UA TRACE Abnormal None [facility] [employer] Work Phone: Bilirubin Urine Negative NEGATIVE [facility] Work Phone: Casts UA NOT REPORTED /LPF [facility] [employer] Work Phone: Color, UA YELLOW YELLOW [facility] [employer] Work Phone: Crystals, UA NOT REPORTED None /HPF [facility] [employer] Work Phone: Epithelial Cells UA 2 TO 5 [facility] [employer] Work Phone: Glucose, Ur Negative NEGATIVE [facility] [employer] Work Phone: Interpretation and review of laboratory results Abnormal [facility] [employer] Work Phone: Ketones Ql (U) Negative NEGATIVE [facility] Work Phone: Leukocyte esterase Test strip Ql (U) Negative NEGATIVE [facility] [employer] Work Phone: Mucus, UA TRACE Abnormal None [facility] [employer] Work Phone: Nitrite, Urine Negative NEGATIVE [facility] Work Phone: Other Observations UA NOT REPORTED NOT REQ. M [facility] [employer] Work Phone: pH, UA 6.0 [facility] Work Phone: Protein, UA Negative NEGATIVE [facility] Work Phone: RBC, UA 2 TO 5 [facility] Work Phone: Renal Epithelial, UA NOT REPORTED 0 /HPF [facility] [employer] Work Phone: Specific [place], UA 1.025 [employer] Work Phone: Trichomonas, UA NOT REPORTED None [facility] Work Phone: Turbidity UA CLEAR CLEAR [facility] Work Phone: Urinalysis Comments NOT REPORTED [facility] [employer] Work Phone: Urine Hgb 1+ Abnormal NEGATIVE [facility] Work Phone: Urobilinogen, Urine Normal Normal [facility] Work Phone: WBC, UA 0 TO 2 [facility] Work Phone: Yeast, UA NOT REPORTED None [facility] Work Phone: [employer] Work Phone: Comprehensive Metabolic Pane lOrdered By: Roni Dahl on 11-22-2020 Albumin [Mass/Vol] 3.5 g/dL 3.5 - 5.2 g/dL [employer] Work Phone: Albumin/Globulin Ratio NOT REPORTED [facility] [facility] Work Phone: ALP (Bld) [Catalytic activity/Vol] 67 U/L 35 - 104 U/L Create Work Phone: ALT [Catalytic activity/Vol] 22 U/L 5 - 33 U/L Create Work Phone: Anion gap [Moles/Vol] 7 mmol/L Low 9 - 17 mmol/L [employer] Work Phone: AST [Catalytic activity/Vol] 21 U/L <32 Create Work Phone: Bilirubin [Mass/Vol] 0.35 mg/dL 0.30 - 1.20 mg/dL [facility] Phone: Calcium [Mass/Vol] 8.9 mg/dL 8.6 - 10. 4 mg/dL [facility] Phone: Chloride [Moles/Vol] 103 mmol/L 98 - 10 7 mmol/L [facility] Phone: CO2 [Moles/Vol] 26 mmol/L 20 - 31 mmol/L [facility] Phone: Creatinine [Mass/Vol] 0.98 mg/dL High 0.50 - 0.90 mg/dL [facility] Phone: Free PSA/Total PSA [Mass fraction] 6.3 g/dL Low 6.4 - 8.3 g/dL [facility] Phone: GFR >60 >60 mL/min [facility] Phone: GFR Non- 55 mL/min Low >60 [facility] Phone: GFR/1.73 sq M.predicted MDRD (S/P/Bld) [Vol rate/Area] [facility] Phone: Comment on above: Average GFR for 70 o r more years old: 75 mL/min/1.73sq m Chronic Kidney Disease: <60 mL/min/1.73sq m Kidney failure: <15 mL/min/1.73sq m eGFR calculated using average adult body mass. Additional eGFR calculator available at: http://www.mgMEDIA.com/multiple_crcl_2012.htm GFR/1.73 sq M.predicted MDRD (S/P/Bld) [Vol rate/Area] NOT REPORTED [facility] Phone: Glucose [Mass/Vol] 94 mg/dL 70 - 99 mg/dL [facility] Phone: Interpretation and review of laboratory results Abnormal [facility] Phone: Potassium [Moles/Vol] 3.3 mmol/L Low 3.7 - 5.3 mmol/L [facility] Phone: Sodium [Moles/Vol] 136 mmol/L 135 - 144 mmol/L [facility] Phone: Urea nitrogen (BldV) [Mass/Vol] 16 mg/dL 8 - 23 mg/dL [facility] Phone: Urea nitrogen/Creatinine (Bld) [Mass ratio] 16 [facility] Phone: [facility] Phone: AmylaseOrdered By: Naida estrada on 11-18-2020 Amylase [Catalytic activity/Vol] 141 U/L High 28 - 100 U/L [facility] Phone: Interpretation and review of laboratory results Abnormal [facility] Phone: Basic Metabolic PanelOrdered By: Naida Grissom on 11-18-2020 Anion gap [Moles/Vol] 10 mmol/L 9 - 17 mmol/L [facility] Phone: Calcium [Mass/Vol] 8.9 mg/dL 8.6 - 10. 4 mg/dL [facility] Phone: Chloride [Moles/Vol] 105 mmol/L 98 - 10 7 mmol/L [facility] Phone: CO2 [Moles/Vol] 21 mmol/L 20 - 31 mmol/L [facility] Phone: Creatinine [Mass/Vol] 1.06 mg/dL High 0.50 - 0.90 mg/dL [facility] Phone: GFR >60 >60 mL/min [facility] Phone: GFR Non- 51 mL/min Low >60 [facility] Phone: GFR/1.73 sq M.predicted MDRD (S/P/Bld) [Vol rate/Area] [facility] Phone: Comment on above: Average GFR for 70 o r more years old: 75 mL/min/1.73sq m Chronic Kidney Disease: <60 mL/min/1.73sq m Kidney failure: <15 mL/min/1.73sq m eGFR calculated using average adult body mass. Additional eGFR calculator available at: http://www.AquaMobile/multiple_crcl_2012.htm GFR/1.73 sq M.predicted MDRD (S/P/Bld) [Vol rate/Area] NOT REPORTED [facility] Phone: Glucose [Mass/Vol] 139 mg/dL High 70 - 99 mg/dL [facility] Phone: Interpretation and review of laboratory results Abnormal [facility] Phone: Potassium [Moles/Vol] 3.4 mmol/L Low 3.7 - 5.3 mmol/L [facility] Phone: Sodium [Moles/Vol] 136 mmol/L 135 - 144 mmol/L [facility] Phone: Urea nitrogen (BldV) [Mass/Vol] 22 mg/dL 8 - 23 mg/dL [facility] Phone: Urea nitrogen/Creatinine (Bld) [Mass ratio] 21 High [facility] Phone: Create Work Phone: CBC auto differentialOrdered By: Naida Grissom on 11-18-2020 Absolute Eos # 0.10 [facility] Work Phone: Absolute Immature Granulocyte NOT REPORTED [facility] Phone: Absolute Lymph # 0.60 [facility] Work Phone: Absolute [place] # 0.40 [facility] Work Phone: Basophils (Bld) [#/Vol] 0.00 10*3/uL [facility] Phone: Basophils/100 WBC (Bld) 0 % 0 - 2 % [facility] Work Phone: Differential Type YES [facility] Work Phone: Eosinophils/100 WBC (Bld) 1 % 0 - 5 % [facility] Phone: Hematocrit (Bld) [Volume fraction] 37.6 % 36 - 46 % Create Work Phone: Hemoglobin.gastrointe stinal spec 1 Ql (Stl) 12.9 g/dL 12.0 - 16.0 g/dL [facility] Phone: Immature Granulocytes NOT REPORTED 0 % M [facility] Phone: Interpretation and review of laboratory results Abnormal [facility] Phone: Lymphocytes/100 WBC (Bld) 8 % Low 15 - 40 % [facility] Phone: MCH (RBC) [Entitic mass] 31.8 pg 26 - 34 pg [facility] Phone: MCHC (RBC) [Mass/Vol] 34.4 g/dL 31 - 3 7 g/dL [facility] Phone: MCV (RBC) [Entitic vol] 92.4 fL 80 - 100 fL [facility] Phone: Monocytes/100 WBC (Bld) 6 % 4 - 8 % [facility] Phone: NRBC Automated NOT REPORTED per 100 WBC [facility] Phone: Platelet distribution width (Bld) [Ratio] 14.1 % 12.1 - 15.2 % [facility] Phone: Platelet Estimate NOT REPORTED [facility] Phone: Platelet mean volume (Bld) [Entitic vol] NOT REPORTED 6.0 - 12.0 fL [facility] Phone: Platelets (Bld) [#/Vol] 179 10*3/uL [facility] Phone: RBC (Bld) [#/Vol] 4.07 10*6/uL 4.0 - 5.2 m/uL [facility] Phone: RBC (Bld) [#/Vol] NOT REPORTED [facility] Phone: Segmented neutrophils/100 WBC (Bld) 85 % High 47 - 75 % Create Work Phone: Segs Absolute 5.80 [employer] Work Phone: WBC (Bld) [#/Vol] 6.9 10*3/uL [facility] Phone: WBC (Bld) [#/Vol] NOT REPORTED [facility] Phone: Create Work Phone: Hepatic Function PanelOrdere d By: Naida Grissom on 11-18-2020 Albumin [Mass/Vol] 3.7 g/dL 3.5 - 5.2 g/dL [facility] Phone: Albumin/Globulin Ratio NOT REPORTED [facility] Phone: ALP (Bld) [Catalytic activity/Vol] 84 U/L 35 - 104 U/L [facility] Phone: ALT [Catalytic activity/Vol] 63 U/L High 5 - 33 U/L [facility] Phone: AST [Catalytic activity/Vol] 104 U/L High <32 [facility] Phone: Bilirubin [Mass/Vol] 0.49 mg/dL 0.30 - 1.20 mg/dL [facility] Phone: Bilirubin, Indirect CANNOT BE CALCULATED 0.00 - 1.00 mg/dL [facility] Phone: Bilirubin.indirect [Mass/Vol] mg/dL <0.31 mg/dL [facility] Work Phone: Free PSA/Total PSA [Mass fraction] 6.9 g/dL 6.4 - 8.3 g/dL [facility] Work Phone: Globulin NOT REPORTED 1.5 - 3.8 g/dL [facility] [employer] Work Phone: Interpretation and review of laboratory results Abnormal [facility] Work Phone: [facility] Work Phone: LipaseOrdered By: Naida field on 11-18-2020 Lipase [Catalytic activity/Vol] 50 U/L 13 - 60 U/L [facility] Work Phone: Microscopic UrinalysisOrdere d By: Naida Grissom on 11-18-2020 - [facility] Work Phone: Amorphous, UA NOT REPORTED None [facility] Work Phone: Bacteria, UA 1+ Abnormal None [facility] Work Phone: Casts UA NOT REPORTED /LPF [facility] [employer] Work Phone: Crystals, UA NOT REPORTED None /HPF [facility] Work Phone: Epithelial Cells UA 0 TO 2 /HPF [facility] [employer] Work Phone: Mucus, UA NOT REPORTED None [facility] Work Phone: Other Observations UA NOT REPORTED NOT REQ. M [facility] [employer] Work Phone: RBC, UA 0 TO 2 [facility] Work Phone: Renal Epithelial, UA NOT REPORTED 0 /HPF [facility] Work Phone: Trichomonas, UA NOT REPORTED None [facility] Work Phone: WBC, UA 2 TO 5 0 /HPF [facility] [employer] Work Phone: Yeast, UA NOT REPORTED None [facility] Work Phone: No Panel InformationOrdered By: Naida Grissom on 11-18-2020 Interpretation and review of laboratory results Abnormal [facility] Work Phone: [facility] Work Phone: [facility] Work Phone: Urinalysis, reflex to micros copicOrdered By: Naida Grissom on 11-18-2020 Bilirubin Urine Negative NEGATIVE [facility] Work Phone: Color, UA TARA Abnormal YELLOW [facility] Work Phone: Glucose, Ur Negative NEGATIVE [facility] Work Phone: Ketones Ql (U) Negative NEGATIVE [facility] Work Phone: Leukocyte esterase Test strip Ql (U) 1+ Abnormal NEGATIVE Create Work Phone: Nitrite, Urine Negative NEGATIVE [facility] Work Phone: pH, UA 5.0 Create Work Phone: Protein, UA Negative NEGATIVE Create Work Phone: Specific [place], UA 1.025 [employer] Work Phone: Turbidity UA CLEAR CLEAR Create Work Phone: Urinalysis Comments Create Work Phone: Urine Hgb 1+ Abnormal NEGATIVE Create Work Phone: Urobilinogen, Urine Normal Normal [facility] Work Phone: CBC Auto Differentialon 08-01 Basophils (Bld) [#/Vol] 0.00 10*3/uL Create Work Phone: Basophils/100 WBC (Bld) 0 % 0 - 2 % Create Work Phone: Differential Type YES [facility] Work Phone: Eosinophils (Bld) [#/Vol] 0.10 10*3/uL [facility] Phone: Eosinophils/100 WBC (Bld) 2 % 0 - 5 % [facility] Phone: Erythrocyte distribution width (RBC) [Ratio] 14.3 % 12.1 - 15.2 % [facility] Phone: Hematocrit (Bld) [Volume fraction] 36.5 % 36 - 46 % [facility] Phone: Hemoglobin (Bld) [Mass/Vol] 12.3 g/dL 12 - 16 g/dL [facility] Phone: Interpretation and review of laboratory results Abnormal [facility] Phone: Lymphocytes (Bld) [#/Vol] 1.20 10*3/uL [facility] Phone: Lymphocytes/100 WBC (Bld) 24 % 15 - 40 % [facility] Phone: MCH (RBC) [Entitic mass] 32.7 pg 26 - 34 pg [facility] Phone: MCHC (RBC) [Mass/Vol] 33.9 g/dL 31 - 3 7 g/dL [facility] Phone: MCV (RBC) [Entitic vol] 96.6 fL 80 - 100 fL [facility] Phone: Monocytes (Bld) [#/Vol] 0.50 10*3/uL [facility] Phone: Monocytes/100 WBC (Bld) 9 % High 4 - 8 % [facility] Phone: Platelet mean volume (Bld) [Entitic vol] NOT REPORTED 6 - 12 fL [facility] Phone: Platelets (Bld) [#/Vol] NOT REPORTED [facility] Phone: Platelets (Bld) [#/Vol] 223 10*3/uL Create Work Phone: RBC (Bld) [#/Vol] 3.77 10*6/uL Low 4 - 5.2 m/uL Create Work Phone: RBC morphology finding Nom (Bld) NOT REPORTED [facility] Phone: Segmented neutrophils/100 WBC (Bld) 65 % 47 - 75 % Create Work Phone: Segs Absolute 3.30 [employer] Work Phone: WBC (Bld) [#/Vol] 5.1 10*3/uL [facility] Phone: WBC (Bld) [#/Vol] NOT REPORTED per 100 WBC [facility] Phone: WBC Morphology NOT REPORTED [facility] Work Phone: Comprehensive Metabolic Pane trevor 08-11-2020 Albumin [Mass/Vol] 3.9 g/dL 3.5 - 5.2 g/dL [facility] Phone: Albumin/Globulin [Mass ratio] NOT REPORTED [facility] Phone: ALP [Catalytic activity/Vol] 76 U/L 35 - 104 U/L [facility] Phone: ALT [Catalytic activity/Vol] 16 U/L 5 - 33 U/L [facility] Phone: Anion gap [Moles/Vol] 10 mmol/L 9 - 17 mmol/L [facility] Phone: AST [Catalytic activity/Vol] 19 U/L <32 [facility] Phone: Bilirubin Ql (U) 0.35 mg/dL 0.3 - 1.2 mg/dL [facility] Phone: Bun/Cre Ratio 23 High [employer] Work Phone: Calcium [Mass/Vol] 9.9 mg/dL 8.6 - 10. 4 mg/dL [facility] Phone: Chloride [Moles/Vol] 105 mmol/L 98 - 10 7 mmol/L [facility] Phone: CO2 [Moles/Vol] 25 mmol/L 20 - 31 mmol/L [facility] Phone: Creatinine [Mass/Vol] 1.14 mg/dL High 0.5 - 0.9 mg/dL [facility] Phone: GFR 56 mL/min Low >60 [facility] Phone: GFR Non- 46 mL/min Low >60 [facility] Phone: GFR/1.73 sq M predicted among non-blacks MDRD (S/P/Bld) [Vol rate/Area] [facility] Phone: Comment on above: Average GFR for 70 o r more years old: 75 mL/min/1.73sq m Chronic Kidney Disease: <60 mL/min/1.73sq m Kidney failure: <15 mL/min/1.73sq m eGFR calculated using average adult body mass. Additional eGFR calculator available at: http://www.AquaMobile/multiple_crcl_2012.htm GFR/1.73 sq M predicted among non-blacks MDRD (S/P/Bld) [Vol rate/Area] NOT REPORTED [facility] Phone: Glucose [Mass/Vol] 98 mg/dL 70 - 99 mg/dL [facility] Phone: Interpretation and review of laboratory results Abnormal [facility] Phone: Potassium [Moles/Vol] 4.3 mmol/L 3.7 - 5.3 mmol/L [facility] Phone: Protein [Mass/Vol] 6.7 g/dL 6.4 - 8.3 g/dL [facility] Phone: Sodium [Moles/Vol] 140 mmol/L 135 - 144 mmol/L [facility] Phone: Urea nitrogen [Mass/Vol] 26 mg/dL High 8 - 23 mg/dL [facility] Phone: Lipid Panelon 08-11-2020 Cholesterol [Mass/Vol] 126 mg/dL <200 [facility] Phone: Comment on above: Cholesterol Guidelines: <200 Desirable 200-240 Borderline >240 Undesirable Cholesterol in HDL [Mass/Vol] 45 mg/dL >40 [facility] Phone: Comment on above: HDL Guidelines: <40 Undesirable 40-59 Borderline >59 Desirable Cholesterol in LDL [Mass/Vol] 62 mg/dL 0 - 130 mg/dL [facility] Phone: Comment on above: LDL Guidelines: <100 Desirable 100-129 Near to/above Desirable 130-159 Borderline >159 Undesirable Direct (measured) LDL and calculated LDL are not interchangeable tests. Cholesterol in VLDL [Mass/Vol] NOT REPORTED 1 - 30 mg/dL [facility] Phone: Cholesterol.total/Cho lesterol in HDL [Mass ratio] 2.8 {ratio} <5 [facility] Phone: Triglyceride [Mass/Vol] 94 mg/dL <150 [facility] Phone: Comment on above: Triglyceride Guidelines: <150 Desirable 150-199 Borderline 200-499 High >499 Very high Based on AHA Guidelines for fasting triglyceride, March 2012. Magnesiumon 08-11-2020 Magnesium [Mass/Vol] 2.1 mg/dL 1.6 - 2 .6 mg/dL [facility] Phone: Otheron 08-11-2020 Immature granulocytes (Bld) [#/Vol] NOT REPORTED [facility] Phone: Patient Fasting?on 1 Patient Fasting? yes [employer] Phone: TSH with Reflexon 08-11-2020 TSH Qn 2.05 m[IU]/L [facility] Phone: Vitamin D 25 Hydroxyon 08-11 Vit D, 25-Hydroxy 50.9 ng/mL 30 - 100 ng/mL [facility] Phone: Comment on above: Reference Range: Vitamin D status Range Deficiency <20 ng/mL Mild Deficiency 20-30 ng/mL Sufficiency 30-100 ng/mL Toxicity >100 ng/mL CBC Auto Differentialon 10-0 -2019 Basophils (Bld) [#/Vol] 0.00 10*3/uL [place] Basophils/100 WBC (Bld) 1 % 0 - 2 % [place] Differential Type YES [place] Eosinophils (Bld) [#/Vol] 0.10 10*3/uL [place] Eosinophils/100 WBC (Bld) 1 % 0 - 5 % [place] Erythrocyte distribution width (RBC) [Ratio] 14.2 % 12.1 - 15.2 % [place] Hematocrit (Bld) [Volume fraction] 37.4 % 36 - 46 % [place] Hemoglobin (Bld) [Mass/Vol] 12.4 g/dL 12 - 16 g/dL [place] Interpretation and review of laboratory results Abnormal [place] Lymphocytes (Bld) [#/Vol] 1.50 10*3/uL [place] Lymphocytes/100 WBC (Bld) 24 % 15 - 40 % [place] MCH (RBC) [Entitic mass] 32.1 pg 26 - 34 pg [place] MCHC (RBC) [Mass/Vol] 33.2 g/dL 31 - 3 7 g/dL [place] MCV (RBC) [Entitic vol] 96.7 fL 80 - 100 fL [place] Monocytes (Bld) [#/Vol] 0.50 10*3/uL [place] Monocytes/100 WBC (Bld) 9 % High 4 - 8 % [place] Platelet mean volume (Bld) [Entitic vol] NOT REPORTED 6 - 12 fL [place], [place] Platelets (Bld) [#/Vol] 205 10*3/uL [place] Platelets (Bld) [#/Vol] NOT REPORTED [place] RBC (Bld) [#/Vol] 3.87 10*6/uL Low 4 - 5.2 m/uL [place] RBC morphology finding Nom (Bld) NOT REPORTED [place] Segmented neutrophils/100 WBC (Bld) 65 % 47 - 75 % [place] Segs Absolute 4.10 [place] WBC (Bld) [#/Vol] NOT REPORTED per 100 WBC [place] WBC (Bld) [#/Vol] 6.2 10*3/uL [place] WBC Morphology NOT REPORTED [place], [place] CT Head WO Contraston 2019 CT [...] by noncontrast CT. There is intracranial atherosclerosis. [place] Magdiel, Mhpn Incoming R adiant Results From [employer] love [employer] - 03/31/2020 4:[address] head [...] MRI would be recommended for further evaluation. [place] 1. No acute intracra nial abnormality. 2. Stable chronic small vessel ischemic disease. 3. Intracranial atherosclerosis. If the patient has a focal neurologic deficit or there is clinical suspicion for acute cerebrovascular accident, brain MRI would be recommended for further evaluation. [place] Comprehensive Metabolic Pane l w/ Reflex to MGon 03-31-2020 Albumin [Mass/Vol] 4.2 g/dL 3.5 - 5.2 g/dL [place] Albumin/Globulin [Mass ratio] NOT REPORTED [place] ALP [Catalytic activity/Vol] 75 U/L 35 - 104 U/L [place] ALT [Catalytic activity/Vol] 11 U/L 5 - 33 U/L [place] Anion gap [Moles/Vol] 8 mmol/L Low 9 - 17 mmol/L [place] AST [Catalytic activity/Vol] 17 U/L <32 [place] Bilirubin Ql (U) 0.38 mg/dL 0.3 - 1.2 mg/dL [place] Bun/Cre Ratio 21 [place] Calcium [Mass/Vol] 9.1 mg/dL 8.6 - 10. 4 mg/dL [place] Chloride [Moles/Vol] 98 mmol/L 98 - 10 7 mmol/L [place] CO2 [Moles/Vol] 28 mmol/L 20 - 31 mmol/L [place] Creatinine [Mass/Vol] 1.04 mg/dL High 0.5 - 0.9 mg/dL [place] GFR >60 >60 mL/min [place], [place] GFR Non- 52 mL/min Low >60 [place] GFR/1.73 sq M predicted among non-blacks MDRD (S/P/Bld) [Vol rate/Area] [place] Comment on above: Average GFR for 70 o r more years old: 75 mL/min/1.73sq m Chronic Kidney Disease: <60 mL/min/1.73sq m Kidney failure: <15 mL/min/1.73sq m eGFR calculated using average adult body mass. Additional eGFR calculator available at: http://www.AquaMobile/multiple_crcl_2012.htm GFR/1.73 sq M predicted among non-blacks MDRD (S/P/Bld) [Vol rate/Area] NOT REPORTED [place] Glucose [Mass/Vol] 94 mg/dL 70 - 99 mg/dL [place] Interpretation and review of laboratory results Abnormal [place] Potassium [Moles/Vol] 4.2 mmol/L 3.7 - 5.3 mmol/L [place] Protein [Mass/Vol] 7.1 g/dL 6.4 - 8.3 g/dL [place] Sodium [Moles/Vol] 134 mmol/L Low 135 - 144 mmol/L [place] Urea nitrogen [Mass/Vol] 22 mg/dL 8 - 23 mg/dL [place] Microscopic Urinalysison Amorphous, UA NOT REPORTED None [facility] [place] Bacteria, UA NOT REPORTED None [place], [place] Casts UA NOT REPORTED /LPF [place], [place] Crystals, UA NOT REPORTED None /HPF [place] Epithelial Cells UA 0 TO 2 /HPF [place] Mucus, UA NOT REPORTED None [place], [place] Other Observations UA NOT REPORTED NOT REQ. [facility] [place] [place] RBC (U) [#/Vol] 2 TO 5 [place] Renal Epithelial, UA NOT REPORTED 0 /HPF Me [place], [place] Trichomonas, UA NOT REPORTED None [facility] [place], [place] WBC, UA 0 TO 2 0 /HPF [place] Yeast, UA NOT REPORTED None [place], [place] - [place] Otheron 03-31-2020 Immature granulocytes (Bld) [#/Vol] NOT REPORTED 0 % [place] TSH with Reflexon 03-31-2020 TSH Qn 1.98 m[IU]/L [place], [place] Troponinon 03-31-2020 Troponin I.cardiac [Mass/Vol] [place] Comment on above: Reference Range: <0.03 [...] diagnosis. Troponin T.cardiac [Mass/Vol] ug/L <0.03 ng/mL [place] Comment on above: Troponin T results c annot be compared to Troponin-I results. Troponin, High Sensitivity NOT REPORTED 0 - 14 ng/L [place] Urinalysis, reflex to micros copicon 03-31-2020 Bilirubin Urine Negative NEGATIVE [place] Color, UA YELLOW YELLOW [place] Glucose, Ur Negative NEGATIVE [place] Interpretation and review of laboratory results Abnormal [place] Ketones Ql (U) Negative NEGATIVE [place], [place] Leukocyte esterase Test strip Ql (U) Negative NEGATIVE [place] Nitrite, Urine Negative NEGATIVE [place] pH, UA 7.0 [place] Protein (U) [Mass/Vol] Negative NEGATIVE [place] Specific [place], UA 1.005 [place], [place] Turbidity UA CLEAR CLEAR [place], [place] Urinalysis Comments [place] Urine Hgb TRACE Abnormal NEGATIVE [place] Urobilinogen, Urine Normal Normal [place] XR CHEST PORTABLEon 03-31-20 20 Negative chest. [facility] [place] Magdiel, Mhpn Incoming R adiant Results From [employer] - 03/31/2020 2:47 PM EDT EXAM: XR CHEST PORTABLE HISTORY: Reason for exam:->gen weakness 74-year-old female COMPARISON: Chest 07/07/2019 TECHNIQUE: AP portable chest 1424 hours FINDINGS: Heart size normal. Lungs clear. Bony thorax and upper abdomen normal. IMPRESSION: Negative chest. [place] EXAM: XR CHEST STARLA BLE HISTORY: Reason for exam:->gen weakness 74-year-old female COMPARISON: Chest 07/07/2019 TECHNIQUE: AP portable chest 1424 hours FINDINGS: Heart size normal. Lungs clear. Bony thorax and upper abdomen normal. [place] CBC Auto DifferentialOrdered By: Reagan Pascal on 07-07-2019 Absolute Eos # 0.10 [facility] Work Phone: Absolute Immature Granulocyte NOT REPORTED [facility] Work Phone: Absolute Lymph # 1.20 [facility] Work Phone: Absolute [place] # 0.40 [facility] Work Phone: Basophils (Bld) [#/Vol] 0.00 10*3/uL [facility] Work Phone: Basophils/100 WBC (Bld) 0 % 0 - 2 % [facility] Work Phone: Differential Type YES [facility]alt Work Phone: Eosinophils/100 WBC (Bld) 2 % 0 - 5 % [facility] Work Phone: Erythrocyte distribution width (RBC) [Ratio] 14.6 % 12.1 - 15.2 % [facility] Work Phone: Hematocrit (Bld) [Volume fraction] 35.9 % Low 36 - 46 % [employer] Work Phone: Hemoglobin (Bld) [Mass/Vol] 12.2 g/dL 12 - 16 g/dL [facility] Phone: Immature Granulocytes NOT REPORTED 0 % [facility] Work Phone: Interpretation and review of laboratory results Abnormal [facility] Phone: Lymphocytes/100 WBC (Bld) 28 % 15 - 40 % [employer] Work Phone: MCH (RBC) [Entitic mass] 33.2 pg 26 - 34 pg [facility] Phone: MCHC (RBC) [Mass/Vol] 34.1 g/dL 31 - 3 7 g/dL [facility] Phone: MCV (RBC) [Entitic vol] 97.3 fL 80 - 100 fL [employer] Phone: Monocytes/100 WBC (Bld) 10 % High 4 - 8 % [employer] Work Phone: MPV NOT REPORTED 6 - 12 fL [employer] Phone: NRBC Automated NOT REPORTED per 100 WBC [facility] Phone: Platelet Estimate NOT REPORTED [facility] Phone: Platelets (Bld) [#/Vol] 223 10*3/uL [facility] Work Phone: RBC (Bld) [#/Vol] 3.69 10*6/uL Low 4 - 5.2 m/uL [facility] Phone: RBC morphology finding Nom (Bld) NOT REPORTED [facility] Phone: Segmented neutrophils/100 WBC (Bld) 60 % 47 - 75 % [facility] Phone: Segs Absolute 2.60 [employer] Work Phone: WBC (Bld) [#/Vol] 4.4 10*3/uL [employer] Work Phone: WBC Morphology NOT REPORTED [facility] Work Phone: Comprehensive Metabolic Pane lOrdered By: Reagan Pascal on 07-07-2019 Albumin [Mass/Vol] 4.2 g/dL 3.5 - 5.2 g/dL [employer] Phone: Albumin/Globulin Ratio NOT REPORTED [facility] Work Phone: ALP [Catalytic activity/Vol] 66 U/L 35 - 104 U/L [employer] Work Phone: ALT [Catalytic activity/Vol] 9 U/L 5 - 33 U/L [employer] Phone: Anion gap [Moles/Vol] 14 mmol/L 9 - 17 mmol/L [employer] Phone: AST [Catalytic activity/Vol] 17 U/L <32 [facility] Work Phone: Bilirubin [Mass/Vol] 0.32 mg/dL 0.3 - 1 .2 mg/dL [employer] Phone: Bun/Cre Ratio 17 [facility] Work Phone: Calcium [Mass/Vol] 10.2 mg/dL 8.6 - 10. 4 mg/dL [employer] Phone: Chloride [Moles/Vol] 103 mmol/L 98 - 10 7 mmol/L [facility] Work Phone: CO2 [Moles/Vol] 24 mmol/L 20 - 31 mmol/L [employer] Work Phone: Creatinine [Mass/Vol] 1.26 mg/dL High 0.5 - 0.9 mg/dL [employer] Phone: GFR 50 mL/min Low >60 [employer] Work Phone: GFR Comment [facility] Work Phone: Comment on above: Average GFR for 70 o r more years old: 75 mL/min/1.73sq m Chronic Kidney Disease: <60 mL/min/1.73sq m Kidney failure: <15 mL/min/1.73sq m eGFR calculated using average adult body mass. Additional eGFR calculator available at: http://www.AquaMobile/multiple_crcl_2012.htm GFR Non- 42 mL/min Low >60 [employer] Work Phone: GFR Staging NOT REPORTED [employer] Work Phone: Glucose [Mass/Vol] 106 mg/dL High 70 - 99 mg/dL [facility] Phone: Interpretation and review of laboratory results Abnormal [employer] Phone: Potassium [Moles/Vol] 3.8 mmol/L 3.7 - 5.3 mmol/L [employer] Phone: Protein [Mass/Vol] 7.4 g/dL 6.4 - 8.3 g/dL [employer] Phone: Sodium [Moles/Vol] 141 mmol/L 135 - 144 mmol/L [employer] Phone: Urea nitrogen [Mass/Vol] 22 mg/dL 8 - 23 mg/dL [employer] Phone: Lipid PanelOrdered By: Reagan Pascal on 07-07-2019 Cholesterol [Mass/Vol] 169 mg/dL <200 [employer] Phone: Comment on above: Cholesterol Guidelines: <200 Desirable 200-240 Borderline >240 Undesirable Cholesterol in HDL [Mass/Vol] 54 mg/dL >40 [employer] Phone: Comment on above: HDL Guidelines: <40 Undesirable 40-59 Borderline >59 Desirable Cholesterol in LDL [Mass/Vol] 91 mg/dL 0 - 130 mg/dL [employer] Phone: Comment on above: LDL Guidelines: <100 Desirable 100-129 Near to/above Desirable 130-159 Borderline >159 Undesirable Direct (measured) LDL and calculated LDL are not interchangeable tests. Cholesterol.total/Cho lesterol in HDL [Mass ratio] 3.1 {ratio} <5 [facility] Phone: Triglyceride [Mass/Vol] 118 mg/dL <150 [facility] Phone: Comment on above: Triglyceride Guidelines: <150 Desirable 150-199 Borderline 200-499 High >499 Very high Based on AHA Guidelines for fasting triglyceride, March 2012. VLDL NOT REPORTED 1 - 30 mg/dL [facility] Phone: MagnesiumOrdered By: Reagan borja on 07-07-2019 Magnesium [Mass/Vol] 2.4 mg/dL 1.6 - 2 .6 mg/dL [facility] Phone: Patient Fasting?Ordered By: Reagan Pascal on 07-07-2019 Patient Fasting? yes [employer] Phone: TSH with ReflexOrdered By: Jose Carlos Pascal on 07-07-2019 TSH Qn 2.66 m[IU]/L [employer] Phone: Vitamin D 25 HydroxyOrdered By: Reagan Pascal on 07-07-2019 Vit D, 25-Hydroxy 76.8 ng/mL 30 - 100 ng/mL [employer] Phone: Comment on above: Reference Range: Vitamin D status Range Deficiency <20 ng/mL Mild Deficiency 20-30 ng/mL Sufficiency 30-100 ng/mL Toxicity >100 ng/mL XR CHEST STANDARD (2 VW)Orde red By: Reagan Pascal on 07-07-2019 Stable chest compare d to 05/30/2019. [employer] Phone: EXAM: XR CHEST (2 VW ) HISTORY: Reason for exam:->htn 73-year-old female. COMPARISON: Prior studies, most recent being a two-view chest 05/30/2019 TECHNIQUE: Two-view chest FINDINGS: Surgical clips right upper quadrant abdomen. Heart size normal. Lungs clear. Minimal degenerative change thoracic spine. [employer] Phone: Magdiel, Mhpn Incoming R adiant Results From [employer]acs - 07/07/2019 10:15 AM EST EXAM: XR CHEST (2 VW) HISTORY: Reason for exam:->htn 73-year-old female. COMPARISON: Prior studies, most recent being a two-view chest 05/30/2019 TECHNIQUE: Two-view chest FINDINGS: Surgical clips right upper quadrant abdomen. Heart size normal. Lungs clear. Minimal degenerative change thoracic spine. IMPRESSION: Stable chest compared to 05/30/2019. [employer] Work Phone: Clostridium Difficile Toxin/ AntigenOrdered By: Roni Dahl on 04-23-2019 C DIFF AG + TOXIN Negative NEGATIVE [place], [place] Comment on above: No C. difficile anti gen and Toxin Detected. Specimen Description .FECES [facility] [place] CNOVon 03-10-2018 CNOV Office Visit (SPNSMN) MARY JANE RIOS ([id number]) 1945 [facility] Time Provider Department03/10/18 9:55 AM ANDREWS FISH SPNSMN During your visit today, we recorded the following information about you: Pulse Respiration Blood pressure Weight 69/minute 18/minute 130/77 102.1 kg Height 1.626 Jamaica Fish MD 03/10/2018 10:50 AM [facility] SURGERY OUTPATIENT CONSULTSERVICE DATE: 03/10/2018PCP: MARTINEZ Anne PROVIDER:Lanie Prince, [id number] [facility] [id number] requested for an opinion regarding the evaluation [...] WallaceATE: March 10, 2018 : 10:44 AM PAGER:Referring Provider: LANIE PRINCE [[id number]]Allergies As of Date: 03/10/2018 Noted Allergy ReactionGLUTEN FLOUR 03/10/2018 8 - GI Upset 9 - ItchingLEXAPRO (ESCITALOPRAM OXALATE) 08/19/2007 9 - ItchingMORPHINE 07/04/2007SULFA (SULFONAMIDE ANTIBIOTICS) 07/04/2007Date Reviewed: 03/10/2018Reviewed by: Alanna Chang Ma - Fully AssessedReason for Visit: New Patient [172]Primary Visit Diagnosis:Degenerative scoliosis [M41.9]Order(s):XR LUMBAR LIMITED 2V AP/LAT [[id number]] Order #: [id number] FUTUREPrescriptions as of 03/10/2018 Sig: ASPIRIN 81 MG TABLET,DELAYED * Take 81 mg by mouth once trea* ESOMEPRAZOLE MAGNESIUM 40 MG * Take 40 [...] by ANDREWS FISH MD on 03/10/18 [place] PROGRESSon 03-10-2018 Protein mass conc HNO ID: [id number] thor: Katelin Hollingsworth RtService: (none)Author Type: (none)Type: Progress NotesFiled: 03/10/2018 11:05 AMNote Text: Radiology Service Progress NotePATIENT NAME: Mary Jane AlexandraMichaelRN: [id number] OF SERVICE: March 10, 2018TIME: 11:04 AMPATIENT IDENTITY VERIFICATION COMPLETED USING TWO (2) METHODS: Patientconfirmed name verbally and Date of .PATIENT GENDER DATA: Female. status: : NoBreastfeeding status: NO.PATIENT RELEVANT IMPLANT DATA REVIEWED: Not ApplicableRADIOLOGY DEPARTMENT: General X-ray: Exam(s) Completed: Spine X-Ray(s):Lumbar AP / LAT / [id number] IV DATA: Not applicableSIGNED BY: Katelin Hollingsworth RtSeptember 2017 11:04 AM [place] Protein mass conc HNO ID: [id number] thor: Andrews BarriosageService: (none)Author Type: PhysicianType: Progress NotesFiled: 03/10/2018 10:50 AMNote Text:SPINE SURGERY OUTPATIENT CONSULTSERVICE DATE: 03/10/2018PCP: Roni Motta, MDREFERRING PROVIDER:Lanie Prince, [id number] [address] [id number] requested for an opinion regarding the evaluation [...] 10, 2018 : 10:44 AM PAGER: [place] XR LUMBAR 2V AP/LATon 2017 XR LUMBAR [...] lordosis, grade 1 spondylolisthesis of L4 upon C2Tuloluatw bodies: Normal in height. No vertebral fracture.Spine articulations: Severe multilevel disc space narrowing throughout the spine with osteophyte formation of the endplates. Multilevel degenerative changes in the facet joints.Soft tissues: Normal.Other: Right hip is maintained. Total hip arthroplasty on the left side.IMPRESSION: Severe multilevel degenerative changes in the lumbar spineTranscriptionist: PSCHedy Transcribe Date/Time: Mar 10 2018 11:21ADictated by : ANAHI STEIN MDThis examination was interpreted and the report reviewed and electronically signed by: ANAHI STEIN MD on Mar 10 2018 11:23AM [id number] Normal [place] Vital Signs Date Time Vital Sign Value Performing Clinician Facility 11-14-2023 22:17-0400 Diastolic blood pressure 85 mm[Hg] Jessica Farrar MD Work Phone: [facility] [employer] 11-14-2023 22:17-0400 Heart rate 60 /min [facility] 11-14-2023 22:17-0400 Respiratory rate 17 /min Jessica [facility]ar MD [facility] 11-14-2023 22:17-0400 SaO2% (BldA) [Mass fraction] 96 % Jessica Farrar MD Work Phone: [facility] [employer] 11-14-2023 22:17-0400 Systolic blood pressure 122 mm[Hg] Jessica [facility]arrar MD [facility] 11-14-2023 18:48-0400 Body temperature 98.01 [degF] Jessica Farrar MD [facility] 11-14-2023 18:42-0400 Body height 162.6 cm Jessica Farrar MD [facility] 11-14-2023 18:42-0400 Body mass index (BMI) [Ratio] 37.08 kg/m2 Jessica Farrar MD Work [facility] 11-14-2023 18:42-0400 Body weight 97.98 kg Jessica Farrar MD Work Phone: [facility] [employer] 10-23-2023 12:23-0400 Heart rate 79 /min Lexy Tapia MD Work Phone: [facility] [employer] 10-23-2023 12:23-0400 Respiratory rate 16 /min Lexy Tapia MD Work Phone: [facility] [employer] 10-23-2023 12:23-0400 SaO2% (BldA) [Mass fraction] 97 % Lexy Tapia MD Work Phone: [facility] [employer] 10-23-2023 12:13-0400 Diastolic blood pressure 65 mm[Hg] Lexy Tapia MD Work Phone[facility] 10-23-2023 12:13-0400 Systolic blood pressure 100 mm[Hg] Lexy Tapia MD Work Phone[facility] 10-23-2023 09:46-0400 Body height 160 cm Lexy Tapia MD Work Phone: [facility] [employer] 10-23-2023 09:46-0400 Body mass index (BMI) [Ratio] 38.09 kg/m2 Lexy Tapia MD Work Phone: [facility] [employer] 10-23-2023 09:46-0400 Body temperature 98.1 [degF] Lexy Tapia MD Work Phone[facility] [employer] 10-23-2023 09:46-0400 Body weight 97.52 kg Lexy Tapia MD Work Phone: [facility] 09-16-2023 15:15-0400 Diastolic blood pressure 67 mm[Hg] Ricardo Sarmini [facility] 09-16-2023 15:15-0400 Heart rate 53 /min Ricardo Sarmini [facility] 09-16-2023 15:15-0400 Respiratory rate 14 /min Ricardo Sarmini [facility] 09-16-2023 15:15-0400 Systolic blood pressure 148 mm[Hg] Ricardo Sarmini [facility] 09-16-2023 15:00-0400 Diastolic blood pressure 81 mm[Hg] Ricardo Sarmini [facility] 09-16-2023 15:00-0400 Heart rate 54 /min Ricardo Sarmini [facility] 09-16-2023 15:00-0400 Systolic blood pressure 153 mm[Hg] Ricardo Sarmini [facility] 09-16-2023 14:55-0400 Diastolic blood pressure 89 mm[Hg] Ricardo Sarmini [facility] 09-16-2023 14:55-0400 Heart rate 60 /min Ricardo Sarmini [facility] 09-16-2023 14:55-0400 Respiratory rate 20 /min Ricardo Sarmini [facility] 09-16-2023 14:55-0400 SaO2% (BldA) [Mass fraction] 100 % Ricardo Sarmini [facility] 09-16-2023 14:55-0400 Systolic blood pressure 135 mm[Hg] Ricardo Sarmini [facility] 09-16-2023 14:44-0400 Body temperature 96.8 [degF] Ricardo Sarmini [facility] 09-16-2023 14:35-0400 Respiratory rate 12 /min Ricardo Sarmini [facility] 09-16-2023 14:25-0400 Respiratory rate 12 /min Ricardo Sarmini [facility] 09-16-2023 14:15-0400 Respiratory rate 12 /min Ricardo Sarmini [facility] 09-16-2023 13:14-0400 Blood Pressure Location Ricardo Sarmini [facility] 09-16-2023 13:14-0400 Body temperature 96.8 [degF] Ricardo Sarmini [facility] 07-01-2023 15:32-0500 Body height 160 cm Monster Mei MD Work Phone: [employer] 07-01-2023 15:32-0500 Body mass index (BMI) [Ratio] 36.49 kg/m2 Monster Mei MD Work Phone: [facility] [employer] 07-01-2023 15:32-0500 Body temperature 98.91 [degF] Monster Mei MD Work Phone: [employer] 07-01-2023 15:32-0500 Body weight 93.44 kg Monster Mei MD Work Phone: [facility] [employer] 07-01-2023 15:32-0500 Diastolic blood pressure 70 mm[Hg] Monster Mei MD Work Phone: [facility] [employer] 07-01-2023 15:32-0500 Heart rate 80 /min Monster Mei MD Work Phone: [facility] [employer] 07-01-2023 15:32-0500 Respiratory rate 20 /min Monster Mei MD Work Phone: [facility] [employer] 07-01-2023 15:32-0500 SaO2% (BldA) [Mass fraction] 97 % Monster Mei MD Work Phone: [facility] [employer] 07-01-2023 15:32-0500 Systolic blood pressure 138 mm[Hg] Monster Mei MD Work Phone: [facility] [employer] 05-02-2023 08:55-0400 Body height 162.6 cm Grayson Hutchinson Jr., DO Work Phone: [facility] 05-02-2023 08:55-0400 Body mass index (BMI) [Ratio] 36.46 kg/m2 Grayson Hutchinson Jr., DO Work Phone: [facility] 05-02-2023 08:55-0400 Body temperature 97.7 [degF] Grayson Hutchinson Jr., DO Work Phone: [facility] 05-02-2023 08:55-0400 Body weight 96.34 kg Grayson Hutchinson Jr., DO Work Phone: [facility] 05-02-2023 08:55-0400 Diastolic blood pressure 82 mm[Hg] Grayson Hutchinson Jr., DO Work Phone: [facility] 05-02-2023 08:55-0400 Heart rate 72 /min Grayson Hutchinson Jr., DO Work Phone: [facility] 05-02-2023 08:55-0400 Systolic blood pressure 150 mm[Hg] Grayson Hutchinson Jr., DO Work Phone: [facility] 03-19-2023 08:55-0400 Diastolic blood pressure 73 mm[Hg] MD Roni Dahl Work Phone: [facility] 03-19-2023 08:55-0400 Heart rate 63 /min MD Roni Dahl Work Phone: [facility] 03-19-2023 08:55-0400 Respiratory rate 16 /min MD Roni Dahl Work Phone: [facility] 03-19-2023 08:55-0400 SaO2% (BldA) [Mass fraction] 95 % MD Roni Dahl Work Phone: [facility] 03-19-2023 08:55-0400 Systolic blood pressure 141 mm[Hg] MD Roni Dahl Work Phone: [facility] 03-19-2023 08:15-0400 Inhaled oxygen flow rate 3 L/min MD Roni Dahl Work Phone: [facility] 03-19-2023 07:19-0400 Body height 160.02 cm MD Roni Dahl Work Phone: [facility] 03-19-2023 07:19-0400 Body weight 96.61 kg MD Roni Dahl Work Phone: [facility] 03-07-2023 09:20-0400 Body height Mukul Wilson Other [employer] Other 03-07-2023 09:20-0400 Body mass index (BMI) [Ratio] 35.99 kg/m2 Mukul Steve Other [employer] Other 03-07-2023 09:20-0400 Body weight 96.62 kg Mukul Wilson Other [employer] Other 03-07-2023 09:20-0400 Diastolic blood pressure 80 mm[Hg] Mukul Wilson Other [employer] Other 03-07-2023 09:20-0400 Systolic blood pressure 152 mm[Hg] Mukul Wilson Other [employer] Other 03-01-2023 12:05-0400 Body height 162.56 cm MD Roni Dahl Work Phone: [facility] 03-01-2023 12:05-0400 Body temperature 98.6 [degF] MD Roni Dahl Work Phone: [facility] 03-01-2023 12:05-0400 Body weight 96.61 kg MD Roni Dahl Work Phone: [facility] 03-01-2023 12:05-0400 Diastolic blood pressure 74 mm[Hg] MD Roni Dahl Work Phone: [facility] 03-01-2023 12:05-0400 Heart rate 59 /min MD Roni Dahl Work Phone: [facility] 03-01-2023 12:05-0400 Respiratory rate 20 /min MD Roni Dahl Work Phone: [facility] 03-01-2023 12:05-0400 SaO2% (BldA) [Mass fraction] 96 % MD Roni Dahl Work Phone: [facility] 03-01-2023 12:05-0400 Systolic blood pressure 143 mm[Hg] MD Roni Dahl Work Phone: [facility] 02-28-2023 12:51-0400 Blood Pressure Location Ricardo Sarmini [facility] 02-28-2023 12:51-0400 Diastolic blood pressure 92 mm[Hg] Ricardo Sarmini [facility] 02-28-2023 12:51-0400 Heart rate 64 /min Ricardo Sarmini [facility] 02-28-2023 12:51-0400 Respiratory rate 16 /min Ricardo Sarmini [facility] 02-28-2023 12:51-0400 SaO2% (BldA) [Mass fraction] 98 % Ricardo Sarmini [facility] 02-28-2023 12:51-0400 Systolic blood pressure 135 mm[Hg] Ricardo Sarmini [facility] 02-08-2023 14:05-0400 Body temperature 98.1 [degF] Roni Dahl MD Work Phone: [facility] 02-08-2023 14:05-0400 Diastolic blood pressure 63 mm[Hg] Roni Dahl MD Work Phone: [facility] 02-08-2023 14:05-0400 Heart rate 59 /min Roni Dahl MD Work Phone: [facility] [employer] 02-08-2023 14:05-0400 Respiratory rate 13 /min Roni Dahl MD Work Phone: [facility] [employer] 02-08-2023 14:05-0400 SaO2% (BldA) [Mass fraction] 97 % Roni Dahl MD Work Phone: [facility] [employer] 02-08-2023 14:05-0400 Systolic blood pressure 143 mm[Hg] Roni Dahl MD Work Phone: [employer] 01-30-2023 15:30-0400 Body temperature 98.7 [degF] Tara Patel Other [employer] Other 01-30-2023 15:30-0400 Body weight 99.79 kg Atra Patel Other [employer] Other 01-30-2023 15:30-0400 Diastolic blood pressure 70 mm[Hg] Tara Patel Other [employer] Other 01-30-2023 15:30-0400 Respiratory rate 20 /min Tara Patel Other [employer] Other 01-30-2023 15:30-0400 SaO2% (BldA) [Mass fraction] 98 % Tara Patel Other [employer] Other 01-30-2023 15:30-0400 Systolic blood pressure 122 mm[Hg] Tara Patel Other [employer] Other 11-25-2022 12:00-0400 Diastolic blood pressure 75 mm[Hg] Salomon Correa MD Work Phone: [employer] 11-25-2022 12:00-0400 SaO2% (BldA) [Mass fraction] 99 % Salomon Correa MD Work Phone: [facility] [employer] [facility] 11-25-2022 12:00-0400 Systolic blood pressure 140 mm[Hg] Salomon Correa MD Work Phone: [facility] [employer] [facility] 11-25-2022 10:30-0400 Heart rate 59 /min Salomon Correa MD Work Phone: [facility] 11-25-2022 10:30-0400 Respiratory rate 18 /min Salomon Correa MD Work Phone: [facility] 11-25-2022 10:05-0400 Body temperature 97.9 [degF] Salomon Correa MD Work Phone: [facility] 11-25-2022 10:04-0400 Body height 162.6 cm Salomon Correa MD Work Phone: [facility] 11-25-2022 10:04-0400 Body mass index (BMI) [Ratio] 38.16 kg/m2 Salomon Correa MD Work Phone: [facility] 11-25-2022 10:04-0400 Body weight 100.83 kg Salomon Correa MD Work Phone: [facility] 08-28-2022 12:58-0500 Blood Pressure Location Donna Spencer [facility] 08-28-2022 12:58-0500 Body temperature 97.34 [degF] Donna Spencer [facility] 08-28-2022 12:58-0500 Diastolic blood pressure 72 mm[Hg] Donna Spencer [facility] 08-28-2022 12:58-0500 Heart rate 69 /min Donna Johanna [facility] 08-28-2022 12:58-0500 Systolic blood pressure 114 mm[Hg] Donna Jangmetz [facility] 07-26-2022 08:55-0500 Diastolic blood pressure 69 mm[Hg] Ferrari SALAM [facility] 07-26-2022 08:55-0500 Heart rate 54 /min Frerari SALAM [facility] 07-26-2022 08:55-0500 Mean blood pressure 84 mm[Hg] Ferrari SALAM [facility] 07-26-2022 08:55-0500 Respiratory rate 13 /min Ferrari SALAM [facility] 07-26-2022 08:55-0500 SaO2% (BldA) [Mass fraction] 97 % Ferrari SALAM [facility] 07-26-2022 08:55-0500 Systolic blood pressure 114 mm[Hg] Ferrari SALAM [facility] 07-26-2022 08:35-0500 Diastolic blood pressure 71 mm[Hg] Ferrari SALAM [facility] 07-26-2022 08:35-0500 Heart rate 55 /min Ferrari SALAM [facility] 07-26-2022 08:35-0500 Mean blood pressure 84 mm[Hg] Ferrari SALAM [facility] 07-26-2022 08:35-0500 Respiratory rate 17 /min Ferrari SALAM [facility] 07-26-2022 08:35-0500 SaO2% (BldA) [Mass fraction] 100 % Ferrari SALAM [facility] 07-26-2022 08:35-0500 Systolic blood pressure 111 mm[Hg] Ferrari SALAM [facility] 07-26-2022 08:30-0500 Diastolic blood pressure 72 mm[Hg] Ferrari SALAM [facility] 07-26-2022 08:30-0500 Heart rate 71 /min Ferrari SALAM [facility] 07-26-2022 08:30-0500 Mean blood pressure 92 mm[Hg] Ferrari SALAM [facility] 07-26-2022 08:30-0500 Respiratory rate 21 /min Ferrari SALAM [facility] 07-26-2022 08:30-0500 SaO2% (BldA) [Mass fraction] 99 % Ferrari SALAM [facility] 07-26-2022 08:30-0500 Systolic blood pressure 131 mm[Hg] Ferrari SALAM [facility] 07-26-2022 08:20-0500 Body temperature 97.7 [degF] Ferrari SALAM [facility] 07-26-2022 07:14-0500 Blood Pressure Location Ferrari SALAM [facility] 07-26-2022 07:14-0500 Body temperature 97.16 [degF] Ferrari SALAM [facility] 07-17-2022 09:53-0500 Diastolic blood pressure 60 mm[Hg] MD Roni Dahl Work Phone: [facility] 07-17-2022 09:53-0500 Heart rate 60 /min MD Roni Dahl Work Phone: [facility] 07-17-2022 09:53-0500 Respiratory rate 16 /min MD Roni Dahl Work Phone: [facility] 07-17-2022 09:53-0500 SaO2% (BldA) [Mass fraction] 97 % MD Roni Dahl Work Phone: [facility] 07-17-2022 09:53-0500 Systolic blood pressure 120 mm[Hg] MD Roni Dahl Work Phone: [facility] 07-17-2022 09:06-0500 Inhaled oxygen flow rate 3 L/min MD Roni Dahl Work Phone: [facility] 07-17-2022 08:22-0500 Body height 162.56 cm MD Roni Dahl Work Phone: [facility] 07-17-2022 08:22-0500 Body weight 99.79 kg MD Roni Dahl Work Phone: [facility] 07-12-2022 09:28-0500 Body temperature 97.7 [degF] Alma Mao DO Work Phone: [employer] 07-12-2022 09:21-0500 Body height 162.6 cm Alma Mao DO Work Phone: [employer] 07-12-2022 09:21-0500 Body mass index (BMI) [Ratio] 37.93 kg/m2 Alma Mao DO Work Phone: [employer] 07-12-2022 09:21-0500 Body weight 100.25 kg Alma Mao DO Work Phone: [employer] 07-12-2022 09:21-0500 Diastolic blood pressure 71 mm[Hg] Alma Mao DO Work Phone: [employer] 07-12-2022 09:21-0500 Heart rate 72 /min Alma Mao DO Work Phone: [facility] [employer] 07-12-2022 09:21-0500 Respiratory rate 18 /min Alma Mao DO Work Phone: [facility] [employer] 07-12-2022 09:21-0500 SaO2% (BldA) [Mass fraction] 98 % Alma Mao DO Work Phone: [facility] [employer] 07-12-2022 09:21-0500 Systolic blood pressure 128 mm[Hg] Alma Mao DO Work Phone: [facility] 07-10-2022 14:16-0500 Blood Pressure Location Donna Spencer [facility] 07-10-2022 14:16-0500 Body temperature 96.8 [degF] Donna Spencer [facility] 07-10-2022 14:16-0500 Diastolic blood pressure 80 mm[Hg] Donna Spencer [facility] 07-10-2022 14:16-0500 Heart rate 64 /min Donna Spencer [facility] 07-10-2022 14:16-0500 Systolic blood pressure 119 mm[Hg] Donna Spencer [facility] 07-03-2022 11:10-0500 Diastolic blood pressure 73 mm[Hg] MD Rnoi Dahl Work Phone: [facility] 07-03-2022 11:10-0500 Heart rate 56 /min MD Roni Dahl Work Phone: [facility] 07-03-2022 11:10-0500 Respiratory rate 20 /min MD Roni Dahl Work Phone: [facility] 07-03-2022 11:10-0500 SaO2% (BldA) [Mass fraction] 97 % MD Roni Dahl Work Phone: [facility] 07-03-2022 11:10-0500 Systolic blood pressure 136 mm[Hg] MD Roni Dahl Work Phone: [facility] 07-03-2022 10:28-0500 Inhaled oxygen flow rate 3 L/min MD Roni Dahl Work Phone: [facility] 07-03-2022 09:32-0500 Body height 162.56 cm MD Roni Dahl Work Phone: [facility] 07-03-2022 09:32-0500 Body weight 99.79 kg MD Roni Dahl Work Phone: [facility] 05-29-2022 10:13-0500 Diastolic blood pressure 72 mm[Hg] MD Roni Dahl Work Phone: [facility] 05-29-2022 10:13-0500 Heart rate 62 /min MD Roni Dahl Work Phone: [facility] 05-29-2022 10:13-0500 Respiratory rate 20 /min MD Roni Dahl Work Phone: [facility] 05-29-2022 10:13-0500 SaO2% (BldA) [Mass fraction] 97 % MD Roni Dahl Work Phone: [facility] 05-29-2022 10:13-0500 Systolic blood pressure 139 mm[Hg] MD Roni Dahl Work Phone: [facility] 05-29-2022 09:23-0500 Inhaled oxygen flow rate 3 L/min MD Roni Dahl Work Phone: [facility] 05-29-2022 08:38-0500 Body height 162.56 cm MD Roni Dahl Work Phone: [facility] 05-29-2022 08:38-0500 Body weight 100.24 kg MD Roni Dahl Work Phone: [facility] 04-09-2022 11:15-0400 Body weight 101.15 kg Yanelis Garcia Other [facility] Other 03-27-2022 09:14-0400 Diastolic blood pressure 62 mm[Hg] MD Roni Dahl Work Phone: [facility] 03-27-2022 09:14-0400 Heart rate 57 /min MD Roni Dahl Work Phone: [facility] 03-27-2022 09:14-0400 Respiratory rate 16 /min MD Roni Dahl Work Phone: [facility] 03-27-2022 09:14-0400 SaO2% (BldA) [Mass fraction] 96 % MD Roni Dahl Work Phone: [facility] 03-27-2022 09:14-0400 Systolic blood pressure 121 mm[Hg] MD Roni Dahl Work Phone: [facility] 03-27-2022 08:36-0400 Inhaled oxygen flow rate 3 L/min MD Roni Dahl Work Phone: [facility] 03-27-2022 07:55-0400 Body height 165.1 cm MD Roni Dahl Work Phone: [facility] 03-27-2022 07:55-0400 Body weight 100.24 kg MD Roni Dahl Work Phone: [facility] 10-14-2021 11:07-0400 Body mass index (BMI) [Ratio] 38.77 kg/m2 Lexy Tapia MD Work Phone: [employer] 10-14-2021 11:07-0400 Body temperature 98.2 [degF] Lexy Tapia MD Work Phone: [employer] 10-14-2021 11:07-0400 Body weight 105.69 kg Lexy Tapia MD Work Phone: [employer] 10-14-2021 11:07-0400 Diastolic blood pressure 73 mm[Hg] Lexy Tapia MD Work Phone: [employer] 10-14-2021 11:07-0400 Heart rate 67 /min Lexy Tapia MD Work Phone: [employer] 10-14-2021 11:07-0400 Respiratory rate 16 /min Lexy Tapia MD Work Phone: [employer] 10-14-2021 11:07-0400 SaO2% (BldA) [Mass fraction] 98 % Lexy Tapia MD Work Phone: [employer] 10-14-2021 11:07-0400 Systolic blood pressure 147 mm[Hg] Lexy Tapia MD Work Phone: [employer] 11-27-2020 14:00-0400 Respiratory rate 18 /min Darryl Sandoval MD Work Phone: [employer] Work Phone: 11-27-2020 09:32-0400 SaO2% (BldA) [Mass fraction] 96 % Darryl Sandoval MD Work Phone: Create Work Phone: 11-27-2020 09:31-0400 Body temperature 98.1 [degF] Darryl Sandoval MD Work Phone: Create Work Phone: 11-27-2020 09:31-0400 Diastolic blood pressure 78 mm[Hg] Darryl Sandoval MD Work Phone: Create Work Phone: 11-27-2020 09:31-0400 Heart rate 78 /min Darryl Sandoval MD Work Phone: Create Work Phone: 11-27-2020 09:31-0400 Systolic blood pressure 139 mm[Hg] Darryl Sandoval MD Work Phone: Create Work Phone: 11-18-2020 09:19-0400 Diastolic blood pressure 57 mm[Hg] Naida Grissom MD Work Phone: Create Work Phone: 11-18-2020 09:19-0400 SaO2% (BldA) [Mass fraction] 96 % Naida Grissom MD Work Phone: Create Work Phone: 11-18-2020 09:19-0400 Systolic blood pressure 118 mm[Hg] Naida Grissom MD Work Phone: Create Work Phone: 11-18-2020 06:45-0400 Body height 165.1 cm Naida Grissom MD Work Phone: Create Work Phone: 11-18-2020 06:45-0400 Body mass index (BMI) [Ratio] 37.11 kg/m2 Naida Grissom MD Work Phone: Create Work Phone: 11-18-2020 06:45-0400 Body temperature 99.19 [degF] Naida Grissom MD Work Phone: Create Work Phone: 11-18-2020 06:45-0400 Body weight 101.15 kg Naida Grissom MD Work Phone: Create Work Phone: 11-18-2020 06:45-0400 Heart rate 87 /min Naida Grissom MD Work Phone: Create Work Phone: 11-18-2020 06:45-0400 Respiratory rate 18 /min Naida Grissom MD Work Phone: [phone] Work Phone: 03-31-2020 13:48-0400 BMI (Body Mass Index) 38.79 kg/m2 [facility] 03-31-2020 13:48-0400 Body Temperature 98.49 [degF] [facility] 03-31-2020 13:48-0400 Body weight 102.51 kg [facility] 03-31-2020 13:48-0400 BP Diastolic 99 mm[Hg] [facility] 03-31-2020 13:48-0400 BP Systolic 130 mm[Hg] [facility] 03-31-2020 13:48-0400 Height 162.6 cm [facility] 03-31-2020 13:48-0400 Pulse (Heart Rate) 61 /min [facility], [place] 03-31-2020 13:48-0400 Pulse Oximetry 100 % [facility] 03-31-2020 13:48-0400 Respiratory Rate 18 /min [facility] 05-30-2019 06:47-0500 Pulse Oximetry 100 % [facility] 05-30-2019 06:34-0500 BP Diastolic 44 mm[Hg] [facility] 05-30-2019 06:34-0500 BP Systolic 128 mm[Hg] [facility] 05-30-2019 06:00-0500 BMI (Body Mass Index) 39.86 kg/m2 [facility] 05-30-2019 06:00-0500 Body Temperature 98.8 [degF] [facility] 05-30-2019 06:00-0500 Body weight 102.06 kg [facility] 05-30-2019 06:00-0500 Height 160 cm [facility] 05-30-2019 06:00-0500 Pulse (Heart Rate) 83 /min [facility] [place], [place] 05-30-2019 06:00-0500 Respiratory Rate 20 /min Lexy [facility] [place] Encounters Encounter Date Encounter Type Care Provider Facility Start: 02-17-2024 End: 02-17-2024 ambulatory Trevon Harris MD Facility:[facility] Start: 02-06-2024 End: 02-06-2024 Patient encounter procedure MD Roni Dahl Work Phone: [facility] Work Phone: Start: 02-06-2024 End: 02-06-2024 ambulatory MD Roni Dahl Work Phone: [facility] Work Phone: Start: 02-03-2024 End: 02-03-2024 ambulatory Trevon Harris MD Facility:[facility] Start: 12-19-2023 End: 12-19-2023 Patient encounter procedure MD Roni Dahl Work Phone: [facility] [address] Work Phone: Start: 12-19-2023 End: 12-19-2023 ambulatory MD oRni Dahl Work Phone: [facility] Work Phone: Start: 12-12-2023 End: 12-12-2023 [facility] Start: 11-14-2023 End: 11-14-2023 Emergency department patient visit Jessica Farrar MD Work Phone: [facility] ED Comment on above: Paroxysmal atrial fi brillation (HCC) (Primary Dx) Start: 10-23-2023 End: 10-25-2023 ambulatory [facility] Start: 10-23-2023 End: 10-23-2023 Emergency department patient visit Lexy Tapia MD Work Phone: [facility] ED Comment on above: New onset atrial fib rillation (HCC) (Primary Dx); Atrial fibrillation with RVR (HCC); History of chronic kidney disease; Symptoms of dehydration; Fluid level behind tympanic membrane of both ears; Acute pansinusitis, recurrence not specified; Nausea vomiting and diarrhea Start: 10-22-2023 End: 10-24-2023 ambulatory RONI DAHL [facility] Start: 10-01-2023 End: 10-01-2023 ambulatory RONI DAHL [facility] Start: 09-30-2023 End: 09-30-2023 ambulatory Roni Dahl MD Facility:[facility] [place] Start: 09-19-2023 End: 09-19-2023 Patient encounter procedure MD Roni Dahl Work Phone: [facility] [address] Work Phone: Start: 09-19-2023 End: 09-19-2023 ambulatory MD Roni Dahl Work Phone: [facility] Work Phone: Start: 09-16-2023 End: 09-16-2023 ambulatory Ricardo Talal Kellyrolyi Facility[facility] Start: 09-16-2023 End: 09-16-2023 Patient encounter procedure Davion Mendozarolymary alice [facility] Start: 09-09-2023 End: 09-09-2023 ambulatory Roni Dahl MD Facility:[facility] [place] Start: 08-26-2023 End: 08-26-2023 ambulatory Roni Dahl MD Facility:[facility] [place] Start: 08-20-2023 End: 08-22-2023 ambulatory RONI DAHL [facility] Start: 07-01-2023 End: 07-01-2023 Emergency department patient visit Monster Mei MD Work Phone: [facility] ED Comment on above: COVID-19 virus infec tion (Primary Dx) Start: 05-28-2023 End: 05-28-2023 ambulatory [facility] Start: 05-27-2023 End: 05-27-2023 Patient encounter procedure MD Roni Dahl Work Phone: [facility] [address] Work Phone: Start: 05-27-2023 End: 05-27-2023 ambulatory MD Roni Dahl Work Phone: [facility] Work Phone: Start: 05-22-2023 End: 05-22-2023 ambulatory [facility] Start: 05-20-2023 End: 05-20-2023 ambulatory [facility] Start: 05-16-2023 End: 05-16-2023 ambulatory [facility] Start: 05-13-2023 End: 05-13-2023 ambulatory [facility]I DAHL [facility] Start: 05-09-2023 End: 05-11-2023 ambulatory [facility]I [facility] Start: 05-09-2023 End: 05-09-2023 ambulatory [facility]I [facility] Start: 05-07-2023 End: 05-07-2023 ambulatory RONI Archuletay [facility] Start: 05-02-2023 End: 05-06-2023 ambulatory MARY SUE [facility] Ambulatory Start: 05-02-2023 End: 05-02-2023 Clinical Support Mary Sue [facility] Work Phone: [facility] Comment on above: Sensorineural hearin g loss, bilateral (Primary Dx); Hearing loss, unspecified hearing loss type, unspecified laterality Start: 05-02-2023 End: 05-02-2023 Office outpatient new 45 minutes Grayson Hutchinson DO Work Phone: [facility] Comment on above: Bruxism (teeth grind ing) (Primary Dx); Acute suppurative otitis media of left ear without spontaneous rupture of tympanic membrane, recurrence not specified; ROSETTE on CPAP; Hearing loss, unspecified hearing loss type, unspecified laterality Start: 05-01-2023 End: 05-01-2023 [facility] Start: 04-29-2023 End: 04-29-2023 [facility] Start: 04-13-2023 End: 04-13-2023 [facility] Start: 04-11-2023 End: 04-11-2023 ambulatory XU MCD[facility]ELLJuan C [facility] Start: 03-28-2023 End: 03-28-2023 ambulatory LANIE PRINCE [facility] Start: 03-19-2023 End: 03-19-2023 Admission to same day surgery center MD Roni Dahl Work Phone: [facility] Work Phone: Start: 03-19-2023 End: 03-19-2023 ambulatory MD Roni Dahl Work Phone: [facility] Work Phone: Start: 03-14-2023 End: 03-14-2023 ambulatory Yanelis Garcia Other [employer] Other Start: 03-14-2023 Office outpatient vi sit 25 minutes Yanelis Garcia [facility] [place] Start: 03-14-2023 Telephone encounter Yanelis Garcia [facility] Start: 03-13-2023 End: 03-16-2023 ambulatory [facility] [place] [facility] Start: 03-13-2023 End: 03-15-2023 Subsequent hospital visit by physician Yanelis Guzman MD Work Phone: [facility]ound Comment on above: Renal cyst Start: 03-08-2023 End: 03-08-2023 ambulatory Mukul Steve Other [employer] [facility] Other Start: 03-08-2023 Telephone encounter Mukul Wilson [facility] Start: 03-07-2023 Office outpatient ne w 30 minutes Mukul Wilson [facility] Start: 03-07-2023 End: 03-07-2023 Patient encounter procedure MD Roni Dahl Work Phone: [facility] [place] Work Phone: Start: 03-07-2023 End: 03-07-2023 ambulatory MD Roni Dahl Work Phone: [facility] Work Phone: Start: 03-01-2023 End: 03-01-2023 Emergency department patient visit MD Roni Dahl Work Phone: [facility] Work Phone: Start: 02-28-2023 End: 02-28-2023 ambulatory Ricardo Talal Sarmini Facility:[facility] Start: 02-28-2023 End: 02-28-2023 Patient encounter procedure [facility] Start: 02-27-2023 End: 03-01-2023 Subsequent hospital visit by physician Roni Dahl MD Work Phone: [facility] Start: 02-27-2023 End: 03-01-2023 ambulatory RONI DAHL [facility] Start: 02-25-2023 End: 02-25-2023 ambulatory Yanelis Garcia Other [employer] [facility] Other Start: 02-25-2023 Telephone encounter Yanelis Garcia [facility] Start: 02-21-2023 End: 02-21-2023 Patient encounter procedure MD Roni Dahl Work Phone: [facility] [place] Work Phone: Start: 02-21-2023 End: 02-21-2023 ambulatory MD Roni Dahl Work Phone: [facility] Work Phone: Start: 02-14-2023 End: 02-14-2023 ambulatory Yanelis Garcia Other [employer] Other Start: 02-14-2023 Telephone encounter Yanelis [facility] [place] Start: 02-08-2023 Emergency department patient visit [place] [facility] Start: 02-08-2023 End: 02-08-2023 Emergency department patient visit Roni Dahl MD Work Phone: [facility] ED Comment on above: 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, unspecified back pain laterality (Primary Dx) Start: 02-04-2023 End: 02-04-2023 ambulatory Yanelis Garcia Other [employer] Other Start: 02-04-2023 Telephone encounter Yanelis Branch [facility] Start: 01-30-2023 End: 01-30-2023 ambulatory Tara Patel Other [employer] Other Start: 01-30-2023 Office outpatient vi sit 25 minutes Tara Patel [facility] Urgent Care [facility] Start: 12-11-2022 End: 12-12-2022 ambulatory YANELIS GUZMAN [facility] Start: 11-25-2022 End: 11-25-2022 Emergency department patient visit Salomon Correa MD Work Phone: [facility] ED Comment on above: Non-recurrent acute suppurative otitis media of left ear without spontaneous rupture of tympanic membrane (Primary Dx); Acute nonintractable headache, unspecified headache type Start: 08-29-2022 End: 08-31-2022 Subsequent hospital visit by physician Rei Additional Xray [facility] Comment on above: Essential hypertensi on; Palpitations; Hypothyroidism, unspecified type; Hyperlipidemia, unspecified hyperlipidemia type; Vitamin D deficiency disease Start: 08-28-2022 End: 08-28-2022 Patient encounter procedure Donna Spencer [facility] Start: 08-21-2022 End: 08-21-2022 ambulatory MD Roni Dahl Work Phone: [facility] Work Phone: Start: 08-21-2022 End: 08-21-2022 Patient encounter procedure MD Roni Dahl Work Phone: [facility] [address] Work Phone: Start: 07-31-2022 Office outpatient vi sit 15 minutes Yanelis Garcia [facility] [place] Start: 07-31-2022 End: 08-01-2022 [facility]ulatory [facility] Other Start: 07-31-2022 End: 08-01-2022 Encounter for other specified special examinations [facility] Start: 07-31-2022 End: 07-31-2022 Subsequent hospital visit by physician Maria R Malhotra PT [facility] Comment on above: Arrived Start: 07-26-2022 End: 07-26-2022 Patient encounter procedure Vonda HERNANDEZ [facility] Start: 07-17-2022 (Procedure) Bj Garcia [facility] Start: 07-17-2022 End: 07-17-2022 Admission to same day surgery center MD Roni Dahl Work Phone: [facility] Work Phone: Start: 07-17-2022 End: 07-17-2022 ambulatory MD Roni Dahl Work Phone: [facility] Work Phone: Start: 07-12-2022 End: 07-12-2022 Emergency department patient visit Alma Mao Work Phone: [facility] ED Comment on above: Acute pharyngitis, u nspecified etiology (Primary Dx) Start: 07-10-2022 End: 07-10-2022 Patient encounter procedure Donna Spencer [facility] Start: 07-03-2022 (Procedure) Bj Garcia [facility] Start: 07-03-2022 End: 07-03-2022 Admission to same day surgery center MD Roni Dahl Work Phone: [facility] Work Phone: Start: 07-03-2022 End: 07-03-2022 ambulatory MD Roni Dahl Work Phone: [facility] Work Phone: Start: 06-26-2022 End: 06-26-2022 Patient encounter procedure Donna Aurelia Spencer [facility] Start: 06-14-2022 End: 06-15-2022 ambulatory [facility] Start: 06-14-2022 End: 06-14-2022 Subsequent hospital visit by physician Maria R [facility] Comment on above: Arrived Start: 06-13-2022 End: 06-13-2022 ambulatory Yanelis Garcia Other [employer] Other Start: 06-13-2022 Office outpatient vi sit 25 minutes Yanelis Garcia [facility] [place] Start: 05-29-2022 (Procedure) Bj Garcia [facility] Start: 05-29-2022 End: 05-29-2022 Admission to same day surgery center MD Roni Dahl Work Phone: [facility] Start: 05-29-2022 End: 05-29-2022 ambulatory MD Roni Dahl Work Phone: [facility] Work Phone: Start: 05-22-2022 End: 05-23-2022 ambulatory [facility]IE [facility] Start: 05-16-2022 End: 05-17-2022 ambulatory [facility]ONI [facility] [place] [facility] Start: 05-07-2022 End: 05-07-2022 ambulatory MD Roni Dahl Work Phone: [facility] Work Phone: Start: 05-07-2022 End: 05-07-2022 Patient encounter procedure MD Roni Dahl Work Phone: [facility] [address] Start: 05-02-2022 End: 05-02-2022 ambulatory Yanelis Roloner Other [employer] Other Start: 05-02-2022 Office outpatient vi sit 25 minutes Yanelis Felter [facility] [place] Start: 04-09-2022 End: 04-09-2022 ambulatory Yanelis Felter Other [employer] Other Start: 04-09-2022 Office outpatient vi sit 25 minutes Yanelis Felter [facility] [place] Start: 03-27-2022 End: 03-27-2022 Admission to same day surgery center MD Roni Dahl Work Phone: [facility] Start: 03-14-2022 End: 03-14-2022 Patient encounter procedure MD Roni Dahl Work Phone: [facility] Start: 02-22-2022 End: 02-22-2022 Patient encounter procedure MD Roni Dahl Work Phone: [facility] [address] Start: 01-31-2022 End: 02-02-2022 Subsequent hospital visit by physician Rei Mammography Room [facility] Mamm[facility] Comment on above: Visit for screening mammogram Start: 12-07-2021 End: 12-07-2021 Patient encounter procedure MD Roni Dahl Work Phone: [facility] Start: 11-30-2021 End: 12-02-2021 Subsequent hospital visit by physician Rei Dig Rad 1 [facility] Comment on above: H/O repair of right rotator cuff Start: 11-30-2021 End: 12-02-2021 Subsequent hospital visit by physician Roni Dahl MD Work Phone: [facility] Start: 10-30-2021 End: 10-30-2021 Patient encounter procedure Donna Spencer [facility] Start: 10-26-2021 End: 10-26-2021 Patient encounter procedure Roni Dahl MD Work Phone: [facility] Start: 10-26-2021 End: 10-26-2021 Subsequent hospital visit by physician Roni Dahl MD Work Phone: [facility] Comment on above: Women's annual routi ne gynecological examination; Vaginal burning Start: 10-14-2021 End: 10-14-2021 Emergency department patient visit Lexy Tapia MD Work Phone: [facility] ED Comment on above: Acute cystitis with hematuria (Primary Dx); Vaginal yeast infection Start: 10-11-2021 End: 10-11-2021 Subsequent hospital visit by physician Zo Chen PT Work Phone: [facility] Comment on above: Arrived Start: 10-04-2021 End: 10-04-2021 Subsequent hospital visit by physician Zo Chen PT Work Phone: [facility] Comment on above: Arrived Start: 09-28-2021 End: 09-28-2021 Subsequent hospital visit by physician Velasquez Martel P[facility] Physical Therapy Comment on above: Arrived Start: 09-25-2021 End: 09-25-2021 Subsequent hospital visit by physician Nancy Nunez [facility] Start: 09-21-2021 End: 09-21-2021 Subsequent hospital visit by physician Velasquez Martel P[facility] Comment on above: Arrived Start: 09-19-2021 End: 09-19-2021 Subsequent hospital visit by physician Nancy Nunez [facility] Comment on above: Arrived Start: 09-15-2021 End: 09-15-2021 Subsequent hospital visit by physician Velasquez Martel P[facility] Physical Therapy Comment on above: Arrived Start: 09-13-2021 End: 09-13-2021 Subsequent hospital visit by physician Velasquez Martel PTA [facility] Physical Therapy Comment on above: Arrived Start: 09-07-2021 End: 09-07-2021 Subsequent hospital visit by physician Zo Chen PT Work Phone: [facility] Comment on above: Arrived Start: 09-05-2021 End: 09-05-2021 Subsequent hospital visit by physician Velasquez Martel PTA [facility] Physical Therapy Comment on above: Arrived Start: 08-31-2021 End: 08-31-2021 Subsequent hospital visit by physician Velasquez Martel PTA [facility] Physical Therapy Comment on above: Arrived Start: 08-29-2021 End: 08-29-2021 Subsequent hospital visit by physician Roni Dahl MD Work Phone: [facility] Comment on above: Essential hypertensi on; Palpitations; Hypothyroidism, unspecified type; Hyperlipidemia, unspecified hyperlipidemia type; Vitamin D deficiency disease Start: 08-10-2021 End: 08-12-2021 Subsequent hospital visit by physician Rei Additional Xray At [facility] Comment on above: History of arthrosco py of right shoulder Start: 06-14-2021 End: 06-14-2021 Subsequent hospital visit by physician Velasquez Martel PTA [facility] Physical Therapy Comment on above: Arrived Start: 06-12-2021 End: 06-12-2021 Subsequent hospital visit by physician Rashmi Garcia [facility] Physical Therapy Start: 06-12-2021 End: 06-12-2021 Subsequent hospital visit by physician Rei Sosaid19 Pat Screening Schedule [facility] PRE ADMIT Comment [...] visit by physician Rei Dig Rad 1 [facility] Comment on above: Right shoulder pain, unspecified chronicity Start: 04-27-2021 End: 04-29-2021 Subsequent hospital visit by physician Roni Dahl MD Work Phone: [facility] Start: 01-20-2021 End: 01-22-2021 Subsequent hospital visit by physician Rei Mammography Room [facility]amm[facility] Comment on above: Screening mammogram, encounter for Start: 01-09-2021 End: 01-09-2021 Subsequent hospital visit by physician Roni Dahl MD Work Phone: [facility] Comment on above: Low hemoglobin Start: 12-09-2020 End: 12-09-2020 Subsequent hospital visit by physician Roni Dahl MD Work Phone: [facility] Comment on above: Low hemoglobin Start: 11-27-2020 End: 11-27-2020 Emergency department patient visit Darryl Sandoval MD Work Phone: [facility] ED Comment on above: Diarrhea, unspecifie d type (Primary Dx); General weakness; Urinary incontinence, unspecified type Start: 11-22-2020 End: 11-22-2020 Subsequent hospital visit by physician Roni Dahl MD Work Phone: [facility] Comment on above: Diarrhea of presumed infectious origin; Intractable vomiting with nausea, unspecified vomiting type Start: 11-18-2020 End: 11-18-2020 Emergency department patient visit Naida Grissom MD Work Phone: [facility] ED Comment on above: Nausea vomiting and diarrhea (Primary Dx) Start: 08-11-2020 End: 08-11-2020 Subsequent hospital visit by physician Roni Dahl [facility] Laboratory Comment on above: Essential hypertensi on; Palpitations; Hypothyroidism, unspecified type; Hyperlipidemia, unspecified hyperlipidemia type; Vitamin D deficiency disease Start: 08-09-2020 End: 08-09-2020 Subsequent hospital visit by physician Roni [facility] Comment on above: Essential hypertensi on; Palpitations; Hypothyroidism, unspecified type Start: 06-29-2020 End: 06-29-2020 [facility] Covid Screening Comment on above: Acute recurrent pans inusitis; Fever, unspecified fever cause Start: 03-31-2020 End: 03-31-2020 Subsequent hospital visit by physician Roni Dahl [facility] Laboratory Comment on above: Viral illness; Exposure to COVID-19 virus Start: 03-31-2020 End: 03-31-2020 Emergency department patient visit Lexy Tapia Work Phone: [facility] ED Comment on above: General weakness (Pr imary Dx); YANNA (middle ear effusion), bilateral Start: 11-09-2019 End: 11-11-2019 Subsequent hospital visit by physician [facility] Mammography Room [facility] Comment on above: Visit for screening mammogram Start: 07-07-2019 End: 07-09-2019 Subsequent hospital visit by physician Roni Dahl MD Work Phone: [facility]IR[facility]ORY THER[facility] Comment on above: Essential hypertensi on; Pure hypercholesterolemia; Acquired hypothyroidism; Palpitations; Vitamin D deficiency disease Start: 05-30-2019 End: 05-30-2019 Emergency department patient visit Lexy Tapia Work Phone: [facility] ED Comment on above: Acute recurrent fron venkat sinusitis (Primary Dx); Acute middle ear effusion, bilateral Start: 04-23-2019 End: 04-23-2019 Subsequent hospital visit by physician Roni Dahl MD Work Phone: [facility] Laboratory Comment on above: Diarrhea of presumed infectious origin Start: 03-10-2018 End: 03-10-2018 Patient encounter ANDREWS FISH [place] Start: 03-10-2018 End: 03-11-2018 Patient encounter ANDREWS FISH [place] Start: 06-20-2017 End: 06-21-2017 Ambulatory JAMISON OWENS Facility:[facility] [facility] Procedures Date Procedure Procedure Detail Performing Clinician [...] Phone: Start: 11-25-2022 Urinalysis microscopic only Salomon schreiber MD Work Phone: Start: 11-25-2022 Urnls dip [...] routine ecg w/least 12 lds w/i&r Reagan Pascal MD Work Phone: Start: 08-10-2021 Radex shoulder complete minimum 2 views Angelito Meyer DO Work Phone: Start: 07-28-2021 Repair of musculotendinous cuff of shoulder Donna Spencer Start: 04-27-2021 Radex shoulder complete minimum 2 [...] 25 hydroxy includes fractions if performed Reagan Pascal Work Phone: Start: 08-11-2020 Assay of magnesium Reagan Pascal Work Phone: Start: 08-11-2020 Assay of thyroid stimulating hormone tsh Reagan Pascal Work Phone: Start: 08-11-2020 Blood count complete auto&auto difrntl wbc Reagan Sethiaa Work Phone: Start: 08-11-2020 Comprehensive metabolic panel Reagan Arceo scotta Work Phone: Start: 08-11-2020 Lipid panel Reagan Pascal Work Phone: Start: 08-11-2020 PATIENT FASTING? Reagan Pascal Work Phone: Start: 08-09-2020 Ecg routine ecg w/least 12 lds w/i&r Reagan Pascal Work Phone: Start: 03-31-2020 Ct head/brain w/o contrast material Lexy Tapia Work Phone: Start: 03-31-2020 Radiologic exam chest single view Zhao Tapia Work Phone: Start: 03-31-2020 Assay of [...] Work Phone: Start: 07-07-2019 Lipid panel Reagan Pascal MD Work Phone: Start: 07-07-2019 PATIENT FASTING? Reagan Pascal MD Work Phone: Start: 07-07-2019 Radiologic exam chest 2 views Reagan mcdowell MD Work Phone: Start: 06-03-2019 Repair of stress incontinence by suprapubic sling Donna Spencer Start: 05-30-2019 Radiologic exam chest 2 views Marvin r M Willie Work Phone: Start: 04-23-2019 Toxin/antitoxin assay [...] root of lumbar spine using fluoroscopic guidance [employer] Comment on above: RIGHT L2-S1 Start: 10-20-2014 Injection of facet joint using fluoroscopic guidance [employer] Comment on above: BILATERAL L3-S1 LUMBAR FACET Start: 08-11-2014 Local anesthetic facet joint nerve block [employer] Comment on above: Bilateral L3-S1 Start: 03-19-2014 Injection of sacroiliac joint using fluoroscopic guidance [employer] Comment on above: Bilateral SIJI Start: 03-23-2013 Injection of sacroiliac joint using fluoroscopic guidance [employer] Comment on above: Bilateral SIJI Start: 11-17-2012 Injection of sacroiliac joint using fluoroscopic guidance [employer] Comment on above: Left SIJI Start: 10-13-2012 Injection of sacroiliac joint using fluoroscopic guidance [employer] Comment on above: Right SIJI Start: 04-30-2012 Endoscopic examination of esophagus, stomach and duodenum [employer] Start: 11-16-2011 Epidural injection of lumbar spine using fluoroscopic guidance [employer] Comment on above: Left L5-S1 Start: 10-05-2011 Epidural injection of lumbar spine using fluoroscopic guidance [employer] Comment on above: Left L5-S1 Start: 08-27-2011 Cystourethroscopy with dilation of urethral stricture [facility] Start: 09-29-2010 Catheterization of right heart Donna ha Basal cell carcinoma of forehead (disorder) Donna Spencer Decompression of median nerve Donna Spencer Comment on above: RIGHT IN 2002, LEFT 2005 Extraction of cataract Donna Spencer Gastric polypectomy Donna Cloud History of repair of musculotendinous cuff of shoulder H/O repair of right rotator cuff [facility] 1 Repair of ankle Donna Hogue tz [...] cancer screen colonoscopy Colon cancer screen colonoscopy [place] Start: 01-18-2026 Screening for malignant neoplasm of colon Colon cancer screen colonoscopy [place], [place] Start: 11-17-2024 End: 11-17-2024 Patient encounter procedure 11/17/2024 10:00 AM EDT Office Visit [facility] [address] [place] [address] John Paul Mayfield, LICENSED MORTGAGE LOAN OFFICER - MAMMOGRAPHER [address] [place] [address] [address] [place] [address] 1 year f/u, [place] prior-(make sure we have results, patient will be going out of town) [facility] Comment on above: 1 year f/u, [place] prior-(make sure we have results, patient will be going out of town) Start: 08-31-2024 End: 08-31-2024 Patient encounter procedure 08/31/2024 9:00 AM EST Office Visit [facility] [address] [facility] [place] [phone] Reagan Pascal MD [address] [facility] [place] [address] 1 year follow up labs ekg cxr [facility] Comment on above: 1 year follow up labs ekg cxr Start: 08-20-2024 Lipid panel Lipids [facility] Start: 08-06-2024 Depression Monitoring Depression Monitoring [facility] Start: 05-07-2024 End: 05-07-2024 Patient encounter procedure 05/07/2024 9:30 AM EST Office Visit [facility] [address] [place] [id number] Grayson Hutchinson Jr., DO [address] [place] [address] [facility] Start: 05-06-2024 Annual Wellness Visit (Medicare) Annual Wellness Visit (Medicare) [facility] Start: 05-06-2024 Depression Monitoring Depression Monitoring [facility] Start: 03-23-2024 End: 03-23-2024 Patient encounter procedure 03/23/2024 11:00 AM EDT Office Visit [facility] UR[facility] [address] [place] [address] John Paul Mayfield, LICENSED MORTGAGE LOAN OFFICER - MAMMOGRAPHER [address] [place] [address] Dr Romo [address] [place] [address] 1 year f/u, [place] prior [facility] Comment on above: 1 year f/u, [place] prior Start: 03-20-2024 End: 03-20-2024 Patient encounter procedure 03/20/2024 11:00 AM EDT Office Visit [facility] [address] [place] [address] John Paul Mayfield, LICENSED MORTGAGE LOAN OFFICER - MAMMOGRAPHER [address] [facility] [address]etri[address] [place] [id number] 1 year f/u, [place] prior-(make sure we have results, patient will be going out of town) [facility] Comment on above: 1 year f/u, [place] prior-(make sure we have results, patient will be going out of town) Start: 03-18-2024 End: 03-18-2024 Patient encounter procedure 03/18/2024 1:00 PM EDT Appointment [facility] Ultrasound [address] [phone] epic/ sched w/ Anastasiya in office [facility] Comment on above: epic/ sched w/ Anastasiya in office Start: 02-11-2024 End: 02-11-2024 Patient encounter procedure 02/11/2024 8:00 AM EDT Office Visit [facility] [address] [place] [phone] Roni Dahl MD [address] [place] [address] Appt Reason: Routine Existing Condition Follow Up [facility] Comment on above: Appt Reason: Routine Existing Condition Follow Up Start: 02-06-2024 Dual energy X-ray absorptiometry XR dexa axial skeleton [facility] Start: 02-06-2024 DXA Skeletal system.axial Views for bone density [facility] Start: 12-31-2023 Tetanus vaccination Tetanus: Every 10yrs [facility] Start: 12-19-2023 Hemolytic complement CH50 level [facility] Start: 12-12-2023 End: 12-12-2023 Patient encounter procedure 12/12/2023 10:00 AM EDT Office Visit [facility] [address] [place] [phone] Reagan Pascal MD [address] [place] [address] 3 wk f/u ED tachycardia & event monitor [facility] [employer] Comment on above: 3 wk f/u ED tachycardia & event monitor Start: 11-14-2023 End: 11-14-2023 Patient encounter procedure 11/14/2023 10:45 AM EDT Procedure visit [facility] [address] [facility] [address] [place] [address] Vadim Peña, PA-C [address] [facility] [address] urogram [facility] Comment on above: cysto after CT urogram Start: 11-01-2023 Depression Monitoring Depression Monitoring [facility] Start: 09-19-2023 Hemolytic complement CH50 [facility] Start: 09-02-2023 End: 09-02-2023 Patient encounter procedure [facility] [employer] Comment on above: 1 yr f/u lab/ekg/ Start: 08-21-2023 Lipid panel Lipids [facility] Start: 08-06-2023 End: 08-06-2023 Patient encounter procedure 08/06/2023 8:40 AM EST Office Visit [facility] [address] [place] [address] Roni Dahl MD [address] [place] [address] 3 mos - Hyperlipidemia, depression, Hypothyroid, gerd, insomnia, sleep apnea, arthritis [facility] Comment on above: 3 mos - Hyperlipidemia, depression, Hypo thyroid, gerd, insomnia, sleep apnea, arthritis Start: 05-27-2023 Hemolytic complement CH50 [facility] Start: 05-09-2023 End: 05-09-2023 Patient encounter procedure 05/09/2023 11:30 AM EST Appointment [facility] Mammography [address] [place] [address] SELF REF/PT [facility] Comment on above: SELF REF/PT Start: 05-06-2023 End: 05-06-2023 [facility] Comment on above: Return in about 6 months (around 05/03/20) for Hyperlipidemia, Hypothyroid, depression, gerd, arthritis and MEDICARE wellness Start: 05-04-2023 Annual Wellness Visit (AWV) Annual Wellness Visit (AWV) [facility] Start: 05-03-2023 Depression Monitoring Depression Monitoring [facility] Start: 05-03-2023 History and physical examination, annual for health maintenance Wellness Visit [facility] Start: 03-22-2023 End: 03-22-2023 Patient encounter procedure [facility] Comment on above: 3 month f/u, US results Start: 03-20-2023 End: 03-20-2023 Patient encounter procedure 03/20/2023 Office Visit [facility] Start: 03-19-2023 [facility] Start: 03-13-2023 End: 03-13-2023 Patient encounter procedure 03/13/2023 Appointment Radiology Yanelis Guzman MD [address] [place] [address], [address] [place] [address] [facility] Start: 03-01-2023 COVID-19 Vaccine ( season) COVID-19 Vaccine ( season) [facility] Start: 03-01-2023 Influenza vaccination Sequential Influenza Vaccine (#1) [facility] Start: 01-29-2023 Influenza vaccination Flu vaccine (#1) [facility] Start: 12-21-2022 End: 12-21-2022 Patient encounter procedure 12/21/2022 Office Visit [facility] Start: 10-31-2022 End: 10-31-2022 Patient encounter procedure 10/31/2022 Office Visit Family Medicine Roni Dahl MD [address] [place] [id number] [facility] Start: 09-05-2022 COVID-19 Vaccine (5 - Moderna series) COVID-19 Vaccine (5 - Moderna series) [facility] Start: 09-03-2022 End: 09-03-2022 Patient encounter procedure [facility] Start: 08-29-2022 Lipid panel [facility] Start: 08-29-2022 Thyroid stimulating hormone measurement [facility] Start: 08-21-2022 Bacteria identified in Urine by Culture [facility] Start: 08-21-2022 Hemolytic complement CH50 level [facility] Start: 07-31-2022 End: 07-31-2022 Patient encounter procedure 07/31/2022 Appointment Physical Therapy Maria R Malhotra, PT [facility] Start: 07-17-2022 [facility] Start: 07-03-2022 [facility] Start: 07-03-2022 Radiofrequency destruction of peripheral nerve DH Nerve Radio Frequency (Left) [facility] Start: 05-29-2022 [facility] Start: 05-03-2022 Annual Wellness Visit (AWV) Annual Wellness Visit (AWV) [facility] Start: 05-03-2022 End: 05-03-2022 Patient encounter procedure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 http://www.[employer]/contents /yealkfsruodn-bsumuyz-vvlhcw-the -basics 09/16/2023 14:59:47 Colon Polyps Colon Polyps [...] hard liquor (44 mL). General instructions Take lqry-ikp-mesewca and prescription medicines only as told by [...] provider. Document Revised: 10/05/2020 Document Reviewed: 10/05/2020 [employer] Patient Education 2022 [employer]. Follow Up Care 02/28/2023 13:25:17 With:Davion Olivares Address: [address] [place] [address], [address] [phone] [phone] Business (1) When: Unknown Comments:office will call for follow up [facility] 09-16-2023 Evaluation + Plan note Extrac pepito from: Title:ANES Post General Author:Danny Shaw iology ()Obie Date:09/16/23 Plan Transfer/Discharge: Patient exhibiting no signs of N/V. Hydration status is adequate. Extracted from: Title:Danny Basic PRE Author:Danny Condon siology ()Obie Date:09/16/23 Plan [place] Society of Anesthesiologists (ASA) physical status classification: Class III. Anesthetic Preoperative Plan: Anesthesia General. [facility]11-02-2023 Instructions* Patient Instructions* Grayson Hutchinson Jr., DO - 05/02/2023 9:49 AM EDT [...] for repeat hearing testing. documented in this [id number] History of Present illness Narrative* Mary Sue AuD - 05/02/2023 9:19 AM EDT Images from the original note were not included. [facility] [address] [place] [address] Name: Mary Jane Rios : 1945 Date: [...] for bilateral ear infection. She returned to [facility] and was told that herear was still infected. She reports her last hearing test several years ago in [place]. 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 Electronically Signed by: Oswaldo Blake, [facility] 05/02/23 9:19 AM documented in this [id number] History of Present illness Narrative* Grayson Hutchinson Jr., DO - 05/02/2023 8:57 AM EDT Images from the original note were not included. Subjective Patient ID: Mary Jane Rios is a 77 y.o. female. 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 Patient states she has had left ear infections for most of her life. She was treated for ear infection with Augmentin in October. 3 weeks ago, woke up with extreme pain and was treated again for b/l ear infection. She returned to [facility] and was told thather ear was still infected. Last hearing test several years ago in [place]. 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 documented in this [id number] NoteChief Complaint: lbp and radicular pain right [...] current indications for surgical management [facility] NoteChief Complaint: lbp and radicular pain right [...] preoperative surgical planning [facility]* Encounter Date Diagnosis Assessment Notes Treatment Notes Treatment Clinical Notes Mar, Piriformis syndrome of right side (ICD-10 - G57.01) [employer] Other 09-14-2023 Evaluation note* Encounter Date Diagnosis [...] note writ ten by John Merlos LPN, Clinical Staff Rn. Edited and approved by Dr. Yanelis Garcia MD. [employer] Other 09-07-2023 Evaluation note* Encounter Date Diagnosis [...] be replaced but there are areas of xtjh-qb-lkpp. My suspicion is that this is causing some nerve irritation I have no indication for doing back surgery I think injections in the spine will be of no benefit she is already had some and they have not helped. I think what needs to be injected or treated is the area around the hip. Mar, Right hip pain (ICD-10 - M25.551) [employer] Other 08-28-2023 Evaluation note* Encounter Date Diagnosis Assessment Notes Treatment Notes Treatment Clinical Notes Jan, Other spondylosis with radiculopathy, lumbar region (ICD-10 - M47.26) [employer] Other 08-17-2023 Evaluation note* Encounter Date Diagnosis Assessment Notes Treatment Notes Treatment Clinical Notes Jan, Other spondylosis with radiculopathy, lumbar region (ICD-10 - M47.26) [facility] Other 08-11-2023 Hospital Discharge instructions* Discharge Instructions* Keyshawn Suresh PA-C - 02/08/2023 4:26 PM EDT Follow-up with primary care doctor 7 to 10 days for reevaluation. Continue to wear corrective shoe as directed to prevent future sciatica low back pain events. Take [place] as directed. As we discussed, break a tab of [place] in half and take every 6 hours as needed for pain. Promptly return to emergency department for new, changing, worsening of symptoms or other concerns. * Attachments The following attachments cannot be sent through Care Everywhere. * Back Pain (Cuban) * Sciatica (Cuban) [facility]* Encounter Date Diagnosis Assessment [...] therapy. Follow above of treatment plan recommendations. [employer] Other 05-28-2023 History of Present illness Narrative* Zunilda Bullock RN - 11/25/2022 10:47 AM EDT Ticket to ride completed. The following information was reported off: Name Allergies Orientation Level Destination Safety Issues Code Status Oxygen Requirements Special needs including mobility, language, communication documented in this encounterBON [employer] Phone: [phone]) 219-132802-28-2023 Hospital Discharge instructions Patient Education 08/28/2022 13:26:40 [...] powder, vinegar, hot sauces, and barbecue sauce. ?[place] fruit juices and citrus fruits, such as oranges, kamilah, and limes. ?Tomato-based foods, such as red sauce, chili, salsa, and pizza with red sauce. ?Fried and fatty foods, such as donuts, lao fries, potato chips, and high-fat dressings. ?High-fat [...] to any changes in your symptoms. Take qogj-yqj-dpilvdw and prescription medicines only as told by [...] you have new or worsening symptoms. Take buie-edk-sbltonv and prescription medicines only as told by [...] 03/27/2006 Document Revised: 12/24/2018 Document Reviewed: 12/24/2018 [employer] Patient Education 2020 [employer]. Follow Up Care 08/15/2022 13:39:48 With:KHADAR STEINER, [facility] Address: [address] [place] [address]. [address] [place] [address] When:6 months Comments:Patient requests to be evaluated by Dr. Hernandez next visit. [facility] 01-31-2023 Evaluation note* Encounter Date Diagnosis Assessment Notes [...] note writ ten by John Merlos LPN, Clinical Staff Rn. Edited and approved by Dr. Yanelis Garcia MD. [employer] Other 01-26-2023 Evaluation + Plan noteExtracted from: Title:ANES Pre-operative Note Author:Misha STEINER, R miryam S. Date:07/26/22 Plan [place] Society of Anesthesiologists (ASA) physical status classification: Class III. Anesthetic Preoperative Plan: Anesthesia General. [facility]01-26-2023 Hospital Discharge instructions Patient Education 07/26/2022 08:42:33 [...] what activities are safe for you. Take cyoa-vli-ghbfyfw and prescription medicines only as told by [...] 12/16/2012 Document Revised: 12/09/2018 Document Reviewed: 11/17/2018 [employer] Patient Education 2020 [employer]ex. Follow Up Care 07/10/2022 14:59:17 With:Vonda HERNANDEZ Address: [address] [place], [place] [address] [place] [address] Business (1) When: Unknown Comments:Office will call date and time of follow-up appt. [facility]01-17-2023 [facility] Hospital Discharge instructions* Discharge Instructions* Alma Mao DO - 07/12/2022 9:31 AM EST Go to your scheduled appt with your GI doctor for your scope. * Attachments The following attachments cannot be sent through Care Everywhere. * Sore Throat (Cuban) documented in this encounterBON [employer] Phone: [phone] Hospital Discharge instructions Patient Education 07/10/2022 14:24:54 [...] powder, vinegar, hot sauces, and barbecue sauce. ?[place] fruit juices and citrus fruits, such as oranges, kamilah, and limes. ?Tomato-based foods, such as red sauce, chili, salsa, and pizza with red sauce. ?Fried and fatty foods, such as donuts, lao fries, potato chips, and high-fat dressings. ?High-fat [...] to any changes in your symptoms. Take zstu-qdi-sjttwhd and prescription medicines only as told by [...] you have new or worsening symptoms. Take kcrr-gwu-isioyti and prescription medicines only as told by [...] 03/27/2006 Document Revised: 12/24/2018 Document Reviewed: 12/24/2018 [employer] Patient Education 2020 [employer]. Follow Up Care 06/26/2022 15:51:19 With:Donna Spencer CNP Address: When:1 to 2 weeks Comments:Following EGD. [facility] 12-14-2022 Evaluation note* Encounter Date [...] note writ ten by John Merlos LPN, Clinical Staff Rn. Edited and approved by Dr. Yanelis Garcia MD. [employer] Other 11-02-2022 Evaluation note* Encounter Date Diagnosis [...] note writ ten by Rush Toro MA, Clinical Staff Rn. Edited and approved by Dr. Yanelis Garcia MD. [facility] Other 10-10-2022 Evaluation note* Encounter Date Diagnosis [...] note writ ten by John Merlos LPN, Clinical Staff Rn. Edited and approved by Dr. Yanelis Garcia MD. [employer] Other 04-13-2022 History of Present illness Narrative* Zo Chen, PT - 10/11/2021 9:00 AM EDT Images from the original note were not included. [facility] Therapy Daily Note Date: 10/11/2021 Patient Name: Mary Jane Rios : 1945 (75 y.o.) Referring Practitioner: Dr. Meyer Referral Date : 08/10/21 Diagnosis: Right RCR repair Treatment Diagnosis: Right RCR Onset Date: 07/28/21 PT Insurance Information: [facility] Total # of Visits Approved: 18 [...] and issued written handouts along with orange tband Goals (Total # of Visits to Date: 17) Short Term Goals - Time Frame for Short term goals: 8 visits Short term goal 1: Educate on home program of assisted right shoulder ROM and distal strengthening - MET Short term goal 2: PROM flex 120 deg - MET Short term goal 3: PROM ER to 35 deg @ 90 deg - MET Shelter Goals - Time Frame for MCFP goals : 18 visits superintendent container terminal goal 1: PROM flexion 150 deg and abduction 140 deg- MET superintendent container terminal goal 2: PROM ER 50 deg and IR 60 deg (@ 90 deg )- MET MCFP goal 3: Functionally elevate right shoulder to reach behind head for self care/hair care-MET MCFP goal 4: Functionally reach behind back to don coat or bra- NOT MET superintendent container terminal goal 5: Strength right shoulder/UE to carry gallon of milk- MET Post Treatment Pain: 08/10 Time In: 0900 Time Out : 0950 Timed Code Treatment Minutes: 45 Minutes Total Treatment Time: 50 Minutes ZO CHEN, PT Date: 10/11/2021 documented in this encounterOhiohealth [facility] Cancer CenterDeep [facility] Marketing S.[facility] Work Phone: [phone] 100-157204-13-2022 Hospital course Narrative* Zo Chen, PT - 10/11/2021 9:00 AM EDT Images from the original note were not included. [facility] Outpatient Physical Therapy Discharge Summary Patient: Mary Jane Rios : 1945 Referring Practitioner: Dr. Meyer Diagnosis: Right RCR repair Date Treatment Initiated: 04/28/22 Date of Last Treatment: 10/11/21 PT Visit Information Onset Date: 07/28/21 PT Insurance Information: [facility] Total # of Visits Approved: 18 [...] Comments: Thank you for this referral ZO CHEN, PT Date: 10/11/2021 documented in this encounterOhiohealth [facility] Cancer CenterDeep [facility] Marketing [facility] Work Phone: [phone] History of Present illness Narrative* Zo Chen, PT - 10/04/2021 11:15 AM EDT Images from the original note were not included. [facility] Outpatient Physical Therapy Daily Note Date: 10/04/2021 Patient Name: Mary Jane Rios : 1945 (75 y.o.) Referring Practitioner: Dr. Meyer Referral Date : 08/10/21 Diagnosis: Right RCR repair Treatment Diagnosis: Right RCR Onset Date: 07/28/21 PT Insurance Information: [facility] Total # of Visits Approved: 18 [...] 35 deg @ 90 deg - MET Shop Welder Goals - Time Frame for MCFP goals : 18 visits superintendent container terminal goal 1: PROM flexion 150 deg and abduction 140 deg MCFP goal 2: PROM ER 50 deg and IR 60 deg (@ 90 deg ) MCFP goal 3: Functionally elevate right shoulder to reach behind head for self care/hair care MCFP goal 4: Functionally reach behind back to don coat or bra superintendent container terminal goal 5: Strength right shoulder/UE to carry gallong of milk Post Treatment Pain: 10/08 Time In: 1115 Time Out : 1200 Timed Code Treatment Minutes: 45 Minutes Total Treatment Time: 45 Minutes ZO CHEN PT Date: 10/04/2021 documented in this encounterOhiohealth [facility], Cancer CenterShakti Technology Ventures Phone: [phone] History of Present illness Narrative* Rashmi Paige - 09/25/2021 11:15 AM EDT [facility] Rehab and Wellness Date: 09/25/2021 Patient Name: Mary Jane Rios : 1945 Pt Cancelled Appt due to going to a . Rashmi Paige Date: 09/25/2021 documented in this encounterOhiohealth [facility], Cancer CenterShakti Technology Ventures Phone: [phone] History of Present illness Narrative* Velasquez Martel PTA - 09/21/2021 9:00 AM EDT Images from the original note were not included. [facility] Outpatient Physical Therapy Daily Note Date: 09/21/2021 Patient Name: Mary Jane Rios : 1945 (75 y.o.) Referring Practitioner: Dr. Meyer Referral Date : 08/10/21 Diagnosis: Right RCR repair Treatment Diagnosis: Right RCR Onset Date: 07/28/21 PT Insurance Information: [facility] Total # of Visits Approved: 18 [...] 35 deg @ 90 deg - MET Shop Welder Goals - Time Frame for MCFP goals : 18 visits superintendent container terminal goal 1: PROM flexion 150 deg and abduction 140 deg MCFP goal 2: PROM ER 50 deg and IR 60 deg (@ 90 deg ) superintendent container terminal goal 3: Functionally elevate right shoulder to reach behind head for self care/hair care superintendent container terminal goal 4: Functionally reach behind back to don coat or bra MCFP goal 5: Strength right shoulder/UE to carry gallong of milk Post Treatment Pain: 10/08 Time In: 900 Time Out : 945 Timed Code Treatment Minutes: 45 Minutes Total Treatment Time: 45 Minutes Velasquez Martel PTA Date: 09/21/2021 documented [facility] this [facility] Work Phone: [phone]) [phone] History of Present illness Narrative* Nancy S Mayra - 09/19/2021 9:15 AM EDT Images from the original note were not included. [facility] Outpatient Physical Therapy Daily Note Date: 09/19/2021 Patient Name: Mary Jane Rios : 1945 (75 y.o.) Referring Practitioner: Dr. Meyer Referral Date : 08/10/21 Diagnosis: Right RCR repair Treatment Diagnosis: Right RCR Onset Date: 07/28/21 PT Insurance Information: [facility] Total # of Visits Approved: 18 [...] 35 deg @ 90 deg - MET Shelter Goals - Time Frame for superintendent container terminal goals : 18 visits superintendent container terminal goal 1: PROM flexion 150 deg and abduction 140 deg MCFP goal 2: PROM ER 50 deg and IR 60 deg (@ 90 deg ) superintendent container terminal goal 3: Functionally elevate right shoulder to reach behind head for self care/hair care superintendent container terminal goal 4: Functionally reach behind back to don coat or bra superintendent container terminal goal 5: Strength right shoulder/UE to carry gallong of milk Post Treatment Pain: 09/07 Time In: 0915 Time Out : 09 Timed Code Treatment Minutes: 43 Minutes Total Treatment Time: 43 Minutes Nancy NunezSUPERVISOR CALIBRATION Date: 09/19/2021 documented in this [facility]Deep [facility] Work Phone: [phone] History of Present illness Narrative* Velasquez Martel, SUPERVISOR CALIBRATION - 09/15/2021 9:45 AM EDT Images from the original note were not included. [facility] Outpatient Physical Therapy Daily Note Date: 09/15/2021 Patient Name: Mary Jane Rios : 1945 (75 y.o.) Referring Practitioner: Dr. Meyer Referral Date : 08/10/21 Diagnosis: Right RCR repair Treatment Diagnosis: Right RCR Onset Date: 07/28/21 PT Insurance Information: [facility] Total # of Visits Approved: 18 [...] 35 deg @ 90 deg - MET Shelter Goals - Time Frame for superintendent container terminal goals : 18 visits superintendent container terminal goal 1: PROM flexion 150 deg and abduction 140 deg superintendent container terminal goal 2: PROM ER 50 deg and IR 60 deg (@ 90 deg ) superintendent container terminal goal 3: Functionally elevate right shoulder to reach behind head for self care/hair care superintendent container terminal goal 4: Functionally reach behind back to don coat or bra MCFP goal 5: Strength right shoulder/UE to carry gallong of milk Post Treatment Pain: 10 Time In: 0945 Time Out : 1030 Timed Code Treatment Minutes: 45 Minutes Total Treatment Time: 45 Minutes Velasquez Martel PTA Date: 09/15/2021 documented in this [facility]Deep [facility] Work Phone: [phone] History of Present illness Narrative* Velasquez Martel PTA - 09/13/2021 9:45 AM EDT Images from the original note were not included. [facility] Outpatient Physical Therapy Daily Note Date: 09/13/2021 Patient Name: Mary Jane Rios : 1945 (75 y.o.) Referring Practitioner: Dr. Meyer Referral Date : 08/10/21 Diagnosis: Right RCR repair Treatment Diagnosis: Right RCR Onset Date: 07/28/21 PT Insurance Information: [facility] Total # of Visits Approved: 18 [...] 35 deg @ 90 deg - MET Shelter Goals - Time Frame for MCFP goals : 18 visits MCFP goal 1: PROM flexion 150 deg and abduction 140 deg MCFP goal 2: PROM ER 50 deg and IR 60 deg (@ 90 deg ) superintendent container terminal goal 3: Functionally elevate right shoulder to reach behind head for self care/hair care superintendent container terminal goal 4: Functionally reach behind back to don coat or bra superintendent container terminal goal 5: Strength right shoulder/UE to carry gallong of milk Post Treatment Pain: 3-10/08 Time In: 0945 Time Out : 1030 Timed Code Treatment Minutes: 45 Minutes Total Treatment Time: 45 Minutes Velasquez Martel PTA Date: 09/13/2021 documented in this [facility]Deep [facility] Work Phone: [phone] History of Present illness Narrative* Zo Chen PT - 09/07/2021 11:15 AM EST Images from the original note were not included. [facility] Outpatient Physical Therapy Daily Note Date: 09/07/2021 Patient Name: Mary Jane Rios : 1945 (75 y.o.) Referring Practitioner: Dr. Meyer Referral Date : 08/10/21 Diagnosis: Right RCR repair Treatment Diagnosis: Right RCR Onset Date: 07/28/21 PT Insurance Information: [facility] Total # of Visits Approved: 18 Per Physician Order Total # of Visits to Date: 7 No Show: 0 Canceled Appointment: 0 Plan of Care/Certification Expiration Date: 10/12/21 Pre-Treatment Pain: 08/10 Assessment Assessment: Patient to MD this morning; released from wearing sling. Completed ex per log with bonitalerance. PROM as previous session. Patient compliant with [...] 35 deg @ 90 deg - MET Shop Welder Goals - Time Frame for superintendent container terminal goals : 18 visits MCFP goal 1: PROM flexion 150 deg and abduction 140 deg superintendent container terminal goal 2: PROM ER 50 deg and IR 60 deg (@ 90 deg ) superintendent container terminal goal 3: Functionally elevate right shoulder to reach behind head for self care/hair care superintendent container terminal goal 4: Functionally reach behind back to don coat or bra superintendent container terminal goal 5: Strength right shoulder/UE to carry gallong of milk Post Treatment Pain: 08/10 Time In: 1105 Time Out : 1150 Timed Code Treatment Minutes: 45 Minutes Total Treatment Time: 45 Minutes ZO CHEN PT Date: 09/07/2021 documented in this [facility]Deep [facility] Work Phone: [phone] History of Present illness Narrative* Rashmi Paige - 06/12/2021 10:30 AM EST [facility] Rehab and Wellness Date: 06/12/2021 Patient Name: Mary Jane Rios : 1945 Pt Cancelled Appt due to Illness Rashmi Paige Date: 06/12/2021 documented in this [facility] Work Phone: [phone]) 601-692611-05-2021 History of Present illness Narrative* Zo Chen, PT - 05/05/2021 2:30 PM EDT Images from the original note were not included. [facility] Outpatient Physical Therapy Daily Note Date: 05/05/2021 Patient Name: Mary Jane Rios : 1945 (75 y.o.) Referring Practitioner: Dr. Meyer Referral Date : 04/27/21 Diagnosis: Rightshoulder sprain Treatment Diagnosis: Right shoulder pain Onset Date: 04/27/21 PT Insurance Information: [facility] Per Physician Order Total # of Visits to Date: 3 No Show: 0 Canceled Appointment: 0 Plan of Care/Certification Expiration Date: 06/23/21 Pre-Treatment Pain: 3/10 Assessment Assessment: Patient states shoulder is feeling [...] IR @ 90 deg to 60 deg Shop Welder Goals - Time Frame for MCFP goals : 10 visits superintendent container terminal goal 1: Subjective right shoulder pain < 3/10 with daily household tasks superintendent container terminal goal 2: Active functional mobility to reach behind head for hair care and behind back to don coat/dressing superintendent container terminal goal 3: Strength right shoulder to lift/carry gallon of milk or fold clothes Post Treatment Pain: 3/10 Time In: 1435 Time Out : 1510 Timed Code Treatment Minutes: 35 Minutes Total Treatment Time: 35 Minutes ZO CHEN, PT Date: 05/05/2021 documented in this encounterOhiohealth [facility], Cancer CenterMasterImage [facility] Work Phone: [phone] History of Present illness Narrative* Ericka Cline RN - 11/18/2020 6:50 AM EDT Pt states she took 6 tablets of Imodium yesterday. She states she is incontinent of urine/stool & the imodium is not helping. documented in this encounterOhiohealth [facility] Cancer CenterMaster[facility] Health Work Phone: evaluation + Plan note No data available for this section [facility] Evaluation + Plan note Future Appointments Appointment Date:07/10/2022 02:00:00 PM Scheduled Provider:Donna Spencer CNP [place] Appointment Type:BAD Follow Up [facility] Evaluation + Plan note Future Appointments Appointment Date:07/26/2022 08:15:00 AM Scheduled Provider: Location:[facility] Appointment Type:Surgery FT [facility] Evaluation + Plan note Future Appointments Appointment Date:02/28/2023 12:00:00 PM Scheduled Provider:Vonda HERNANDEZ MD [place] [place] [facility] Appointment Type:BAD Follow Up Future Scheduled Tests Laboratory* Vitamin B12 Level 08/28/22 [facility] Evaluation + Plan note Future Appointments Appointment Date:08/05/2023 12:30:00 PM Scheduled Provider: Location:[facility] Appointment Type:Surgery FT Future Scheduled Tests Laboratory* Vitamin B12 Level 08/28/22 [facility] Evaluation note* Diagnosis Nausea vomiting and diarrhea- Primary Nausea with vomiting documented in this encounter [employer] Phone: evaluation note* Diagnosis Diarrhea of presumed infectious origin Intractable vomiting with nausea, unspecified vomiting type documented in this encounter [employer] Phone: evalvsglth note* Diagnosis Diarrhea, unspecified type- Primary General weakness Other malaise and fatigue Urinary incontinence, unspecified type documented in this encounter [employer] Phone: evaluation note* Diagnosis Low hemoglobin Anemia, unspecified documented in this encounter [employer] Phone: evalbeeuwg note* Diagnosis Low hemoglobin Anemia, unspecified documented in this encounter [employer] Phone: evaluation note* Diagnosis Screening mammogram, encounter for documented in this encounter [employer] Phone: evalurswhk note* Diagnosis Right shoulder pain, unspecified chronicity documented in this encounter [employer] Phone: evalxmyezp note* Diagnosis Acute non-recurrent pansinusitis documented in this encounter [employer] Phone: evalmankyf note* Diagnosis Diarrhea of presumed infectious origin documented in this encounter [facility] [place] note* Diagnosis History of arthroscopy of right shoulder documented in this encounter [employer] Phone: evalknlbus note* Diagnosis Essential hypertension Unspecified essential hypertension Palpitations Hypothyroidism, unspecified type Hyperlipidemia, unspecified hyperlipidemia type Vitamin D deficiency disease Unspecified vitamin D deficiency documented in this encounter [employer] Phone: evalxqewcs note* Diagnosis Essential hypertension Unspecified essential hypertension Pure hypercholesterolemia Acquired hypothyroidism Unspecified hypothyroidism Palpitations Vitamin D deficiency disease Unspecified vitamin D deficiency documented in this encounter [employer] Phone: evalipytwo note* Diagnosis Essential hypertension Unspecified essential hypertension Pure hypercholesterolemia Acquired hypothyroidism Unspecified hypothyroidism Palpitations Vitamin D deficiency disease Unspecified vitamin D deficiency documented in this encounter [employer] Phone: evaluation note* Diagnosis Essential hypertension Unspecified essential hypertension Pure hypercholesterolemia Acquired hypothyroidism Unspecified hypothyroidism Palpitations Vitamin D deficiency disease Unspecified vitamin D deficiency documented in this encounter [employer] Phone: evaluation note* Diagnosis Acute cystitis with hematuria- Primary Acute cystitis Vaginal yeast infection Candidiasis of vulva and vagina documented in this encounter [employer] Phone: evaluation note* Diagnosis Women's annual routine gynecological examination Vaginal burning Other specified symptom associated with female genital organs documented in this encounter [employer] Phone: evaluation note* Diagnosis H/O repair of right rotator cuff Personal history of surgery to other organs documented in this encounter [employer] Phone: evaluation note* Diagnosis Visit for screening mammogram Other screening mammogram documented in this encounter [employer] Phone: evaluation noteNo assessment information [facility] Work Phone: Evaluation noteNo InformationNoputnam [facility] [employer] Other Evaluation note* Diagnosis Acute pharyngitis, unspecified etiology- Primary documented in this encounter [employer] Phone: evaluation note* Diagnosis Essential hypertension Unspecified essential hypertension Palpitations Hypothyroidism, unspecified type Hyperlipidemia, unspecified hyperlipidemia type Vitamin D deficiency disease Unspecified vitamin D deficiency documented in this encounter [employer] Phone: evaluation note* Diagnosis Non-recurrent acute suppurative otitis media of left ear without spontaneous rupture of tympanic membrane- Primary Acute nonintractable headache, unspecified headache type documented in this encounter [employer] Phone: evaluation note* Diagnosis Chronic low back pain with right-sided sciatica, unspecified back pain laterality- Primary documented in this encounter [employer] note* Diagnosis Renal cyst Unspecified congenital cystic kidney disease documented in this encounter [facility] note* Diagnosis Bruxism (teeth grinding)- Primary Other specified psychophysiological malfunction Acute suppurative otitis media of left ear without spontaneous rupture of tympanic membrane, recurrence not specified ROSETTE on CPAP Hearing loss, unspecified hearing loss type, unspecified laterality documented in this encounter [facility] note* Diagnosis Sensorineural hearing loss, bilateral- Primary Hearing loss, unspecified hearing loss type, unspecified laterality documented in this encounter [facility] note* Diagnosis COVID-19 virus infection- Primary documented in this encounter [facility] note* Diagnosis New onset atrial fibrillation (HCC)- Primary Atrial fibrillation Atrial fibrillation with RVR (HCC) Atrial fibrillation History of chronic kidney disease Personal history of other disorder of urinary system Symptoms of dehydration Fluid level behind tympanic membrane of both ears Acute pansinusitis, recurrence not specified Nausea vomiting and diarrhea Nausea with vomiting documented in this encounter [facility] note* Diagnosis Paroxysmal atrial fibrillation (HCC)- Primary Atrial fibrillation documented in this encounter [facility] general Narrative - Reported* Type Description Date [...] Hypothyroidism Medical History Diverticulis Surgical History Hysterectomy 1977 Surgical History Bilateral knee replacement Surgical History RT hip replacement Surgical History gallbladder removal Surgical History Polyp removal Surgical History Carpertunnel surgery Surgical History Sigmoid Surgical History Surgery on sinuses Surgical History ankle surgery Surgical History Epidural injections Hospitalization History see above [employer] [facility] general Narrative - Reported* Type Description Date [...] Medical History thyroid disease Surgical History Hysterectomy 1977 Surgical History Bilateral knee replacement Surgical History RT hip replacement Surgical History gallbladder removal Surgical History Polyp removal Surgical History Carpertunnel surgery Surgical History Sigmoid Surgical History Surgery on sinuses Surgical History ankle surgery Surgical History Epidural injections Surgical History hernia Surgical History rotator cuff tear repair Hospitalization History see above [employer] Other Hospital Discharge instructions* Attachments The following attachments cannot be sent through Care Everywhere. * Diarrhea (Cuban) documented in this [facility] Phone: Hospital Discharge instructions* Attachments The following attachments cannot be sent through Care Everywhere. * Fatigue (Cuban) * Diarrhea (Cuban) * Stress Incontinence: Female (Cuban) * Urge Incontinence: Female (Cuban) documented [facility] this [facility] Phone: Hospital Discharge instructions* Attachments The following attachments cannot be sent through Care Everywhere. * UTI (Urinary Tract Infection): Female (Cuban) * Vaginal Yeast Infection (Cuban) documented [facility] this [facility] Phone: Hospital Discharge instructions No data available for this section [facility] [employer] [facility] Discharge instructions* Attachments The following attachments cannot be sent through Care Everywhere. * Otitis Media (Cuban) * Headache (Cuban) documented in this [facility] [employer] Work Phone: Hospital Discharge instructions* Attachments The following attachments cannot be sent through Care Everywhere. * Coronavirus Disease (COVID-19): General Info (Cuban) documented in this [facility]* Attachments The following attachments cannot be sent through Care Everywhere. * Supraventricular Tachycardia (Cuban) documented in this [facility]Record[facility]Progress note No data available for this section [facility] [employer] Summary Purpose Family History No Family History [...] Diabetes mellitus Unknown sister Malignant neoplasm Unknown Relationship Condition Age at Onset Recorded Date/T lennox mother Family history of co ronary artery bypass surgery Unknown Chronic obstructive pulmonary disease Unk nown Diabetes mellitus Unknown sister Malignant neoplasm of breast Unknown Systemic sclerosis Unknown sister Diabetes mellitus Unknown brother Heart problem Unknown sister Pulmonary embolism Unknown father Unknown mother Diabetes mellitus Unknown Unknown Heart disease Unknown son Diabetes mellitus Unknown sister Malignant neoplasm Unknown Advance Directives No Advanced Directives Records FoundDocuments on File Type Date Recorded Patient Centrifugal Spinner Expl anation Advance Directives and Livin g Will Advance Directives and Livin g Will 03/01/2016 1:57 PM Power of Central Office Equipment Installer Power of Central Office Equipment Installer 03/01/2016 1:57 PM Latest Code Status on File Code Status Date Activated Date Inactivated Comments Full Code 02/21/2015 1:32 PM 02/21/2015 5:10 PM Full Code 02/21/2015 12:11 PM 02/21/2015 1:32 PM Full Code 01/31/2015 10:04 AM 01/31/2015 12:51 PM Full Code 01/31/2015 8:49 AM 01/31/2015 10:04 AM Full Code 04/30/2012 8:28 AM 04/30/2012 3:52 PM Documents on File Type Date Recorded Patient Centrifugal Spinner Expl anation Advance Directives and Livin g Will Advance Directives and Livin g Will 03/01/2016 1:57 PM Power of Central Office Equipment Installer Power of Central Office Equipment Installer 03/01/2016 1:57 PM Latest Code Status on File Code Status Date Activated Date Inactivated Comments Full Code 02/21/2015 1:32 PM 02/21/2015 5:10 PM Full Code 02/21/2015 12:11 PM 02/21/2015 1:32 PM Full Code 01/31/2015 10:04 AM 01/31/2015 12:51 PM Full Code 01/31/2015 8:49 AM 01/31/2015 10:04 AM Full Code 04/30/2012 8:28 AM 04/30/2012 3:52 PM Documents on File Type Date Recorded Patient Centrifugal Spinner Expl anation ACP-Advance Directive ACP-Advance Directive 03/01/2016 1:57 PM ACP-Power of Central Office Equipment Installer ACP-Power of Central Office Equipment Installer 03/01/2016 1:57 PM Documents on File Type Date Recorded Patient Centrifugal Spinner Expl anation ACP-Advance Directive ACP-Advance Directive 03/01/2016 1:57 PM ACP-Power of Central Office Equipment Installer ACP-Power of Central Office Equipment Installer 03/01/2016 1:57 PM Documents on File Type Date Recorded Patient Centrifugal Spinner Expl anation ACP-Advance Directive ACP-Power of Central Office Equipment Installer ACP-Advance Directive 03/01/2016 1:57 PM ACP-Power of Central Office Equipment Installer 03/01/2016 1:57 PM Documents on File Type Date Recorded Patient Centrifugal Spinner Expl anation ACP-Advance Directive ACP-Power of Central Office Equipment Installer ACP-Advance Directive 03/01/2016 1:57 PM ACP-Power of Central Office Equipment Installer 03/01/2016 1:57 PM Healthcare Agents on File Name Relationship Healthcare Agent Relationshi p Communication Adeel Athy Spouse Primary Decision Maker [phone] (Home) Healthcare Agents on File Name Relationship Healthcare Agent Relationshi p Communication Adeel Athy Spouse Primary Decision Maker [phone] (Home) Healthcare Agents on File Name Relationship Healthcare Agent Relationshi p Communication Adeel Athy Spouse Primary Decision Maker [phone] (Home) Healthcare Agents on File Name Relationship Healthcare Agent Relationshi p Communication Adeel Athy Spouse Primary Decision Maker [phone] (Home) Healthcare Agents on File Name Relationship Healthcare Agent Relationshi p Communication Adeel Athy Spouse Primary Decision Maker [phone] (Home) Healthcare Agents on File Name Relationship Healthcare Agent Relationshi p Communication Adeel Athy Spouse Primary Decision Maker [phone] (Home) Healthcare Agents on File Name Relationship Healthcare Agent Relationshi p Communication Adeel Athy Spouse Primary Decision Maker [phone] (Home) Healthcare Agents on File Name Relationship Healthcare Agent Relationshi p Communication Adeel Athy Spouse Primary Decision Maker [phone] (Home) Healthcare Agents on File Name Relationship Healthcare Agent Relationshi p Communication Adeel Athy Spouse Primary Decision Maker [phone] (Home) Healthcare Agents on File Name Relationship Healthcare Agent Relationshi p Communication Adeel Athy Spouse Primary Decision Maker Documents on File Type Date Recorded Patient Centrifugal Spinner Expl anation ACP-Advance Directive 03/01/2016 1:57 PM ACP-Power of Central Office Equipment Installer 03/01/2016 1:57 PM Healthcare Agents on File Name Relationship Healthcare Agent Relationshi p Communication Adeel Athy Spouse Primary Decision Maker Advance Directive Response Recorded Date/ Time Advance Directives No April 22, 2017 3:57pm Advance Directive Response Recorded Date/ Time Advance Directives No April 22, 2017 2:57pm Documents on File Type Date Recorded Patient Centrifugal Spinner Expl anation ACP-Advance Directive 03/01/2016 1:57 PM ACP-Power of Central Office Equipment Installer 03/01/2016 1:57 PM Healthcare Agents on File [...] Documents on File Type Date Recorded Patient Centrifugal Spinner Expl anation ACP-Power of Central Office Equipment Installer 03/01/2016 1:57 PM ACP-Advance Directive 03/01/2016 1:57 [...] Documents on File Type Date Recorded Patient Centrifugal Spinner Expl anation ACP-Power of Central Office Equipment Installer 03/01/2016 1:57 PM ACP-Advance Directive 03/01/2016 1:57 PM Healthcare Agents on File Name Relationship Healthcare Agent Relationshi p Communication Adeel Athy Spouse Primary Decision Maker Healthcare Agents on File Name Relationship Healthcare Agent Relationshi p Communication Adeel Athy Spouse Primary Decision Maker Healthcare Agents on File Name Relationship Healthcare Agent Relationshi p Communication Adeel Athy Spouse Primary Decision Maker Discharge Instructions * [...] be sent through Care Everywhere. * Sinusitis (Cuban) documented in this encounter* Attachments The following attachments cannot be sent through Care Everywhere. * Fatigue (Cuban) * Vertigo (Cuban) documented in this encounter Assessments Diagnosis Acute [...] virus History of Present Illness * Bianka Zurita, RN - 03/31/2020 3:33 PM EDT Pt up to bathroom with minimal assist. Pt states that her nausea is better but she continues to have some dizziness. Gait is steady. documented in this encounter Reason for Referral Status Reason Specialty Diagnoses / Procedures Referre d By Contact Referred To Contact Open Cardiology Diagnoses Essential hypertension Palpitations Hypothyroidism, unspecified type Procedures EKG 12 Reagan Atkins MD [address] [place] [address] Status Reason Specialty Diagnoses / Procedures Referre d By Contact Referred To Contact Closed Radiology Diagnoses Screening mammogram, encounter for Procedures ANA WU DIGITAL SCREEN BILATERAL Roni Dahl MD [address] [place] [address] [facility] [address] [place] [address] Specialty Diagnoses / Procedures Referred By Contac t Referred To Contact Cardiology Diagnoses Essential hypertension Palpitations Hypothyroidism, unspecified type Hyperlipidemia, unspecified hyperlipidemia type Vitamin D deficiency disease Procedures EKG 12 Reagan Atkins MD [address] [place] [address] Referral ID Status Reason Start Date Expiration Date Visits Re quested Visits Authorized [id number] Open 09/06/2021 09/06/2022 1 1 Status Reason Specialty Diagnoses / Procedures Referre d By Contact Referred To Contact Open Cardiology Diagnoses Essential hypertension Pure hypercholesterolemia Acquired hypothyroidism Palpitations Vitamin D deficiency disease Procedures EKG 12 Reagan Atkins MD [address] [place] [address] Specialty Diagnoses / Procedures Referred By Contac t Referred To Contact Radiology Diagnoses Visit for screening mammogram Procedures [facility] WU DIGITAL SCREEN BILATERAL Roni Dahl MD [address] [place] [address] Referral ID Status Reason Start Date Expiration Date Visits Re quested Visits Authorized [id number] Closed 01/25/2022 01/25/2023 1 1 Specialty Diagnoses / Procedures Referred By Contac t Referred To Contact Radiology Diagnoses Renal cyst Procedures RENAL LIMITED Yanelis Guzman MD [address] [facility], [address] [place] [address] Referral ID Status Reason Start Date Expiration Date Visits Re quested Visits Authorized [id number] Open 03/13/2023 03/12/2024 1 1 Specialty Diagnoses / Procedures Referred By Contac t Referred To Contact Audiology Diagnoses Hearing loss, unspecified hearing loss type, unspecified laterality Grayson Hutchinson Jr., DO [address] [place] [address] Mary Sue, AuD [address] [place] [address] Referral ID Status Reason Start Date Expiration Date V isits Requested Visits Authorized [id number] Closed Specialty Services Required/Flower ent's Best Interest 05/02/2023 05/01/2024 1 1 Specialty Diagnoses / Procedures Referred By Contac t Referred To Contact Cardiology Diagnoses New onset atrial fibrillation (HCC) Atrial fibrillation with RVR (HCC) Procedures [address] - [place] Single/Multiple Event Recorder Lexy Tapia MD [address] [place] [address] Referral ID Status Reason Start Date Expiration Date Visits Re quested Visits Authorized [id number] Open 10/23/2023 10/22/2024 1 1 Chief Complaint [...] M47.26 back/R leg pain sent by Dr Lopez order Chief Complaint M47.26 back/R leg pain sent by Dr Lopez order Hip pain Chief Complaint back/R leg pain sent by Dr Lopez order Hip pain Chief Complaint M15.0 / M35.9 / R76. 0 / Z79.899 Osteoporosis, meds Additional Source Comments INFORMATION SOURCE (unrecogn ized section and content) DATE CREATED AUTHOR 12/24/2017 [facility] DATE CREATED AUTHOR AUTHOR'S ORGANIZ ATION 03/27/2018 [place] DATE CREATED AUTHOR AUTHOR'S ORGANIZ ATION 07/13/2021 [facility] dical Specialist DATE CREATED AUTHOR AUTHOR'S ORGANIZ ATION 03/17/2023 [facility] DATE CREATED AUTHOR AUTHOR'S ORGANIZ ATION 04/13/2023 [facility] DATE CREATED AUTHOR AUTHOR'S ORGANIZ ATION 05/06/2023 [facility] DATE CREATED AUTHOR AUTHOR'S ORGANIZ ATION 12/13/2023 [facility] DATE CREATED AUTHOR AUTHOR'S ORGANIZ ATION 01/17/2024 [facility] DATE CREATED AUTHOR AUTHOR'S ORGANIZ ATION 02/12/2024 [facility] DATE CREATED AUTHOR AUTHOR'S ORGANIZ ATION 02/28/2024 [facility] Reason for Visit (unrecogniz ed section and [...] HC MAMMOGRAM DIGITAL SCREEN Roni Sales MD [address] [place] [address] [facility] [address] [place] [address] Reason Comments Illness Pt has not been [...] Radiology Diagnoses Screening mammogram, encounter for Procedures [facility] WU DIGITAL SCREEN BILATERAL Roni Dahl MD [address] [place] [address] [facility] [address] [place] [address] Status Reason Specialty Diagnoses / Procedures Referred By Contact Referred To Contact Open Physical Therapy Diagnoses Shoulder pain, right Procedures physical therapy Angelito Meyer, DO [address] [place] [address] Zo Chen, PT [address] [place] [address] Specialty Diagnoses / Procedures Referred By Contniall garibay Referred To Contact Physical Therapy Diagnoses Shoulder pain, right Procedures physical therapy Angelito Meyer DO [address] [place] [address] Zo Cehn, PT [address] [place] [phone] Referral ID Status Reason Start Date Expiration Date Visits Re quested Visits Authorized [id number] Open 04/28/2021 04/28/2022 99 99 Reason Comments Urinary Tract Infection Pt states that s he has been having painful urination x 10 days. Specialty Diagnoses / Procedures Referred By Contac t Referred To Contact Radiology Diagnoses Visit for screening mammogram Procedures ANA WU DIGITAL SCREEN BILATERAL Verhoff, Roni L, MD [address] [place] [address] Referral ID Status Reason Start Date Expiration Date Visits Re quested Visits Authorized [id number] Closed 01/25/2022 01/25/2023 1 1 Reason Comments [...] working in the garden. Patient seen at [facility] this past Saturday and given cortisone/ muscle relaxer. Patient unable to relieve pain. Specialty Diagnoses / Procedures Referred By Juan Manuel garibay Referred To Contact Radiology Diagnoses Renal cyst Procedures US RENAL LIMITED Yanelis Guzman MD [address] [facility], [address] [place] [address] Referral ID Status Reason Start Date Expiration Date Visits Re quested Visits Authorized [id number] Open 03/13/2023 03/12/2024 1 1 Reason Comments Otitis Media RATING EXAMINER, referral from Maricruz Barber [facility] for otitis media. Patient states she has had left ear infections for most of her life. She was treated for ear infection with Augmentin in October. 3 weeks ago, woke up with extreme pain and was treated again for b/l ear infection. She returned to [facility] and was told that her ear was still infected. Last hearing test several years ago in [place]. 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 Saw Gann in 2019. Specialty Diagnoses / Procedures Referred By Juan Manuel garibay Referred To Contact Otolaryngology Diagnoses Acute suppurative otitis media of left ear without spontaneous rupture of tympanic membrane, recurrence not specified Andre Rowe, [facility] [address] [place] [address] Grayson Hutchinson Jr., DO [address] [place] [address] Referral ID Status Reason Start Date Expiration Date V isits Requested Visits Authorized [id number] Closed Specialty Services Required/Flower ent's Best Interest 04/24/2023 04/23/2024 1 1 Specialty Diagnoses / Procedures Referred By Juan Manuel garibay Referred To Contact Audiology Diagnoses Hearing loss, unspecified hearing loss type, unspecified laterality Grayson Hutchinson Jr., DO [address] [place] [address] Mary Sue, AuD [address] [place] [address] Referral ID Status Reason Start Date Expiration Date V isits Requested Visits Authorized [id number] Closed Specialty Services Required/Flower ent's Best Interest [...] Start Date End Da te nystatin (MYCOSTATIN) 915006 UNIT/ML suspension Take 5 mLs by mouth 4 times daily Swish and swallow. 200 mL 0 11/25/2022 amoxicillin-clavulanate (AUGMENTIN) 875-125 MG per tablet Take 1 tablet by mouth 2 times daily for 10 days 20 tablet 0 11/25/2022 12/05/2022 nystatin (MYCOSTATIN) 216231 UNIT/ML suspension Take 5 mLs by mouth [...] Sat11/18/20 at 0715, For 1 dose 0713 (New Bag - Prov ider: Ericka Cline RN)0927 (Stopped - Provider: Yumiko Rojas RN) ondansetron [...] Please document Furnish to patient on the MAR. 1448 ([facility] - Provider: Emily Choi RN) Scheduled Medication Order 10/21/2023 10/22/2023 10/23/2023 ondansetron [...] mL/hr, Administer over 2 Hours, ONCE, On Shannan 11/14/23 at 2044, For 1 dose, Recommended infusion rate not to exceed 1,000 mg (milligrams) per hour. 2050 (New Bag - Prov ider: Maria R Love RN)2209 (Rate/Dose Change - Provider: Kasey Currie RN - Comment: rate increased per to finish medication dose)2226 (Stopped - Provider: Kasey Currie RN) metoprolol (LOPRESSOR) injection 5 mg (COMPLETED) 5 mg, IntraVENous, ONCE, 1 dose, On Shannan 11/14/23 at [id number] (Given - Provid er: Maria R Love RN) metoprolol (LOPRESSOR) injection 5 mg (COMPLETED) 5 mg, IntraVENous, ONCE, 1 dose, On Shannan 11/14/23 at 2014 2012 (Given - Provid er: Maria R [...] Care Teams (unrecognized sec tion and content) Magneto Electrician Relationship Specialty Start Date End Date Roni Dahl MD [address] [place] [address] PCP - General 07/15/12 Magneto Electrician Relationship Specialty Start Date End Date Roni Dahl MD [address] [place] [address] PCP - General 07/15/12 Magneto Electrician Relationship Specialty Start Date End Date Roni Dahl MD [address] [place] [address] PCP - General 07/15/12 Magneto Electrician Relationship Specialty Start Date End Date Roni Dahl MD [address] [place] [address] PCP - General 07/15/12 Magneto Electrician Relationship Specialty Start Date End Date Roni Dahl MD [address] [place] [address] PCP - General 07/15/12 Magneto Electrician Relationship Specialty Start Date End Date Roni Dahl MD [address] [place] [id number] PCP - General 07/15/12 Magneto Electrician Relationship Specialty Start Date End Date Roni Dahl MD [address] [place] [address] PCP - General 07/15/12 Magneto Electrician Relationship Specialty Start Date End Date Roni Dahl MD [address] [place] [id number] PCP - General 07/15/12 Magneto Electrician Relationship Specialty Start Date End Date Roni Dahl MD [address] [place] [phone] PCP - General 07/15/12 Magneto Electrician Relationship Specialty Start Date End Date Roni Dahl MD [address] [place] [address] PCP - General 07/15/12 Magneto Electrician Relationship Specialty Start Date End Date Roni Dahl MD [address] [place] [address] PCP - General 07/15/12 Magneto Electrician Relationship Specialty Start Date End Date Roni Dahl MD [address] [place] [id number] PCP - General 07/15/12 Team Status: Inactive [...] Active Yanelis Garcia MD Attending Provider Active Magneto Electrician Relationship Specialty Start Date End Date Roni Dahl MD [address] [place], [place] [phone] PCP - General 07/15/12 Magneto Electrician Relationship Specialty Start Date End Date Roni Dahl MD [address] [place], [place] [phone] PCP - General 07/15/12 Magneto Electrician Relationship Specialty Start Date End Date Roni Dahl MD [address] [place] [address] PCP - General 07/15/12 Magneto Electrician Relationship Specialty Start Date End Date Roni Dahl MD [address] [place] [address] PCP - General 07/15/12 Magneto Electrician Relationship Specialty Start Date End Date Roni Dahl MD [address] [place] [address] PCP - General 07/15/12 Team Status: Inactive Member Role Status Dates Roni Dahl MD Primary Care Provider Active Jesus Vasquez APRN Emergency Provider Active Magneto Electrician Relationship Specialty Start Date End Date Roni Dahl MD [address] [place], [place] [phone] PCP - General 07/15/12 Team Status: Inactive Member Role Status Dates Roni Dahl MD Primary Care Provider Active Mukul Wilson MD Attending Provider Active Magneto Electrician Relationship Specialty Start Date End Date Roni Dahl MD [address] [place] [address] PCP - General 07/15/12 Magneto Electrician Relationship Specialty Start Date End Date Roni Dahl MD [address] [place] [address] PCP - General Family Medicine 04/24/23 Magneto Electrician Relationship Specialty Start Date End Date Roni Dahl MD [address] [place] [address] PCP - General Family Medicine 04/24/23 Team Status: Inactive Member Role Status Dates Roni Dahl MD Primary Care Provider Active Obie Hylton MD Attending Provider Active Magneto Electrician Relationship Specialty Start Date End Date Roni Dahl MD [address] [place] [phone] PCP - General 07/15/12 Team Status: Inactive Member Role Status Dates Roni Dahl MD Primary Care Provider Active Start: September 19, 2023 End: September 19, 2023 DENISHA Cedeño Attending Provider Active Start: September 19, 2023 End: September 19, 2023 Magneto Electrician Relationship Specialty Start Date End Date Roni Dahl MD [address] [place] [address] PCP - General 07/15/12 Magneto Electrician Relationship Specialty Start Date End Date Roni Dahl MD [address] [place] [address] PCP - General 07/15/12 Team Status: Inactive Member Role Status Dates Roni Dahl MD Primary Care Provider Active Start: December 19, 2023 End: December 19, 2023 Obie Hylton MD Attending Provider Active St art: December 19, 2023 End: December 19, 2023 Team Status: Inactive Member Role Status Dates Roni Dahl MD Primary Care Provider Active Start: February 06, 2024 End: February 06, 2024 Obie Hylton MD Attending Provider Active St art: February 06, 2024 End: February 06, 2024 Goals (unrecognized section and content) Goals may [...] BE BASED ON THE PRIMARY CLINICAL RECORDS. [employer] [facility]. provides no warranty or guarantee of the accuracy or completeness of information in this document.
== END 2024-03-25 08:15 | disposition home or self-care (01) ==
LOC: PM 08:15
PROVIDERS: PCP Family Medicine; Visit Provider Nurse Practitioner
DX: M48.062 Spinal stenosis, lumbar region with neurogenic claudication (principal); M53.3 Sacrococcygeal disorders, not elsewhere classified; M47.816 Spondylosis without myelopathy or radiculopathy, lumbar region; R29.6 Repeated falls
CPT/HCPCS: G0463

== ENCOUNTER 2024-04-01 10:12 | Outpatient (OUT) | payer MEDICARE, SELFPAY ==
--- NOTE | 2024-04-01 10:20 | XR_ITS ---
[facility] [place] [id number] Patient Name: BINA RIOS MRN: [id number] date: 1945 Sex: F Assigned Patient Location: [facility] Current Patient Location: Accession/Order Number: [id number] Exam Date: 04/01/2024 10:25 Report Date: 04/02/2024 08:28 At the request of: JACK COOPER Procedure: XR lumbar spine 6V w bending EXAMINATION: XR lumbar spine 6V w bending HISTORY: Lumbar Spondylosis COMPARISON: 08/26/2023 FINDINGS: BONES: Severe widespread spondylosis and facet osteoarthritis. No visible acute bony abnormality. Dextrocurvature DISC SPACES: Moderate to severe multilevel disc space narrowing with endplate sclerosis PARASPINOUS: Negative. No paraspinous abnormality is seen. OTHER: No transient spondylolisthesis with flexion or extension XR/XR lumbar spine 6V w bending IMPRESSION: Severe degenerative changes with no dynamic instability Electronically authenticated by: CHRISTIAN VIRAMONTES Date: 04/02/2024 08:28
== END 2024-04-01 10:13 | disposition home or self-care (01) ==
LOC: RAD 10:14
PROVIDERS: PCP Family Medicine; Visit Provider Nurse Practitioner
DX: M47.816 Spondylosis without myelopathy or radiculopathy, lumbar region (principal); M51.369 Other intervertebral disc degeneration, lumbar region without mention of lumbar back pain or lower extremity pain
CPT/HCPCS: 72114

== ENCOUNTER 2024-04-06 08:25 | Day surgery (SDC) | payer MEDICARE, SELFPAY ==
--- OUTSIDE RECORDS SUMMARY | 2024-04-06 08:44 | XMS_ITS | CCD ---
Author Organization [facility] Inform ion Partnership [facility] Care Team Providers Care Bungy Jump Master Name Role Phone JAMISON OWENS Unavailable Unavailable ANDREWS FISH Unavailable Unavailable LANIE PRINCE Unavailable Unavailable ANDREWS FISH Unavailable Unavailable Roni Dahl Primary Care Provider [phone] Roni Dahl Primary Care Provider [phone] [...] Care Provider MD Yanelis Garcia Attending Provider [phone] DILIP Vasquez Emergency Provider MD Mukul Wilson Attending Provider Mukul Wilson [...] Primary Care Provider DILIP Vasquez Emergency Provider [phone] MD Mukul Wilson Attending Provider MD Yanelis Garcia Attending Provider MD Obie Hylton Attending Provider [phone] MD Roni Dahl Primary Care Provider [phone] DENISHA Sanchez Attending Provider VERHOFF, RONI L Primary Care Unavailable ELGAFY, XU K Referring Unavailable VERHOFF, RONI L Primary Care Unavailable ELGAFY, XU K Referring Unavailable VERHOFF, RONI L Primary Care Unavailable YANELIS GUZAMN Referring Unavailable YANELIS GUZMAN Attending Unavailable VERHOFF, [...] JOHN PAUL MAYFIELD Referring Unavailable MD Nabila Lindrith Primary Care Provider MD Obie Hylton Attending Provider Davion Olivares [...] Hylton Admitting Unavailable Obie Hylton Attending Unavailable Nabila Roni [facility] Unavailable Kimberly STEINER, Trevon Ko Attending Unavailable Nabila STEINER, [facility] Unavailab dixon Dahl MD, [facility] Unavailab Jan STEINER, Andrius Ko Attending Unavailable Nabila STEINER, [facility] Unavailab Jan STEINER, Andrius Ko Attending Unavailable Nabila STEINER, [facility] Unavailab Jan STEINER, Andrius Riveraytserafin Attending Unavailable Nabila STEINER, [facility] Unavailab Jan STEINER, Andrius Ko Attending Unavailable Nabila STEINER, [facility] Unavailab Jan STEINER, Andpriscilla Ko Attending Unavailable Allergies Allergy Classification Reported Allergen(s) Allergy Type Date of Onset Reaction(s) Facility hydroCHLOROthiazide (6 sources) hydroCHLOROthiazide Drug Allergy [address] [facility] Latex (6 sources) Latex Substance Allergy [address] [facility] NSAIDs (6 sources) Ibuprofen Drug Allergy [address] [facility] Opioid Agonists (6 sources) Morphine Drug Allergy 2010 Other (See Comments) [facility] Serotonin Reuptake Inhibitors (SSRIs) (6 sources) Escitalopram Drug Allergy 2014 Itching, Rash [facility] Sulfonamides (antibiotic) (12 sources) Sulfonamides (Antibiotic) Drug Allergy 2007 Other (See Comments), Itching [facility] Sulfur (6 sources) Sulfur Drug Allergy [address] [facility] Triamterene (6 sources) Triamterene Drug Allergy [address] [facility] WHEAT DEXTRIN (6 sources) WHEAT DEXTRIN Drug Allergy [address] [facility] (1 source) escitalopram; Translations: [ESCITALOPRAM OXALATE] Drug Allergy 2007 [facility] Rep[facility] (20 sources) morphine; Translations: [MORPHINE] Drug Allergy 2007 Other (See Comments), Vomiting (disorder), GI Intolerance [facility] Repository (5 sources) Sulfonamides (Antibiotic); Translations: [SULFA (SULFONAMIDE ANTIBIOTICS)] Propensity to adverse reactions to drug (disorder) 2007 Hives [facility] Repository (1 source) GLUTEN FLOUR; Translations: [GLUTEN FLOUR] Propensity to adverse reactions to food (disorder) 2017 [facility] Rep[facility] (20 sources) Escitalopram; Translations: [ESCITALOPRAM] Drug Allergy 2007 Itching, Rash [place] (20 sources) Ibuprofen; Translations: [ibuprofen] Drug Allergy 2018 Rash [place] (20 sources) Latex; Translations: [LATEX] Propensity to adverse reactions to drug 2010 Itching, Eruption of skin (disorder), Rash, Other (See Comments) [place] (20 sources) Sulfonamides (Antibiotic) Propensity to adverse reactions to drug 2007 Other (See Comments) [place] (20 sources) Triamterene; Translations: [triamterene] Drug Allergy 2018 Rash, Eruption of skin (disorder) [place] (20 sources) WHEAT DEXTRIN; Translations: [Wheat] Drug Allergy 2010 Itching [place] (20 sources) hydroCHLOROthiazide; Translations: [HYDROCHLOROTHIAZIDE] Drug Allergy 2018 [place] (20 sources) Sulfacetamide Drug Allergy 2018 Itching [place] (20 sources) Sulfur Drug Allergy 2018 Itching [place] (20 sources) Food Propensity to adverse reactions to drug [address] [facility] (10 sources) Gluten; Translations: [Glutens] Food allergy Upset stomach (finding) [facility] (9 sources) Sulfamethoxazole; Translations: [sulfamethoxazole] Drug Allergy Eruption of skin (disorder) [facility] (9 sources) Sulfamethoxazole / Trimethoprim; Translations: [sulfamethoxazole-tri methoprim] Drug Allergy Rash [facility] (16 sources) Sulfacetamide / Sulfur Drug Allergy Unknown [facility] Other (12 sources) Sulfonamides (Antibiotic) Propensity to adverse reactions to drug 2007 Other (See Comments) [facility] (7 sources) Naproxen; Translations: [naproxen] Drug Allergy Unknown [facility] (11 sources) Wheat gluten extract Drug Allergy 2022 Nausea And Vomiting [facility] [employer] (2 sources) Morphine Drug Allergy Unknown [facility] Other (1 source) Sulfamethoxazole / Trimethoprim; Translations: [SULFAMETHOXAZOLE-TRI METHOPRIM] Drug Allergy 2022 [facility] Repository (1 source) Wheat bran; Translations: [WHEAT BRAN] Propensity to adverse reactions to drug (disorder) 2010 [facility] Repository (1 source) GLUTEN PROTEIN; Translations: [GLUTEN PROTEIN] Propensity to adverse reactions to drug (disorder) 2017 [facility] Repository (1 source) Escitalopram Drug Allergy [address] [facility] Repository (1 source) hydroCHLOROthiazide Drug Allergy [address] [facility] Repository (1 source) Ibuprofen Drug Allergy [address] [facility] Repository (1 source) Latex Drug allergy (disorder) [address] [facility] Repository (1 source) Sulfacetamide Drug Allergy [address] [facility] Repository (1 source) Sulfur Drug Allergy [address] [facility] Repository (1 source) Triamterene Drug Allergy [address] [facility] Repository (1 source) Sulfonamides (Antibiotic); Translations: [sulfa drugs] Propensity to adverse reactions to drug (disorder) [facility] Repository Medications Current Medications Medication Drug Class(es) [...] for pain Dx: M75.101 Duration: 7 days, [facility]/pharmacy #[id number], 162, cm, 07/17/21 12:14:00 EST, Height/Length Dosing, 105.2, kg, 07/17/21 12:14:00 EST, We[place]... Start Date: 07/28/21 Status: Ordered Start: 07-28-2021 Percocet 325 m g-5 mg Tab See Instructions, as needed for pain, 40 tab(s), Refill(s) 0, 1-2 orally every 4-6hrs as needed for pain Dx: M75.101 Duration: 7 days, [facility]/pharmacy #[id number], 162, cm, 07/17/21 12:14:00 EST, Height/Length [...] INTRANASAL Twice daily January 10, 2018 12:00am Xcrmfciibx-Waawilbwjhq-XbUk (16 sources) Azelastine-Fluti casone-NaCl Active azithromycin 250 mg oral tab let (2 sources) Macrolide Antimicrobial Star t: 01-0 07-20 End: 11-17 azithromycin (ZITHROMAX Z-PA K) [...] Active Start: 05-07-2023 take 1 tablet by karthik twice daily diclofenac (VOLTAREN) 50 MG EC [...] Ordered Start: 05-20-2019 take [address] [facility] once daily Docusate Sodium (Colace) 100 mg [...] # 90 tab(s), Refills(s) 6, Pharmacy: [facility] #[id number], 162, cm, 09/16/23 10:47:00 EDT, Height/Length Dosing, [...] 0 05/30/2019 Active fluticasone 0.05 mg/inh Nasal Jolon (8 sources) Start: 03-01-2021 fluticasone 0.05 mg/inh Nasal Jolon 50 mcg, Nasal, Daily, Refill(s) 0, Allergy symptoms Start Date: 03/01/21 Status: Ordered gabapentin 300 mg oral capsule (1 source) Anti-epileptic Agent Start: 05-27-2023 gabapentin (NEURONTIN) 300 MG capsule hydroCHLOROthiazide 25 mg / triamterene 37.5 mg oral capsule (20 sources) Potassium-spar ing Diuretic, Thiazide Diuretic Start: 06-27-2022 take 1 capsule by mouth once daily Triamterene-[place] chlorothiazid Active 1 CAP PO Daily June [...] Ordered Start: 07-17-2021 take 1 capsule by [facility] once daily Metamucil Fibre Therapy capsule, Oral, [...] Start: 05-20-2019 take 1 tablet by karthik once daily Multivitamin Active 1 TAB PO [...] 20 capsule 0 10/14/2021 10/24/2021 Active nystatin 368801 unt/ml oral suspension (20 sources) Polyene Antifungal Start: 10-18-2023 End: 10-28-2023 take 5 mL by mouth four times daily nystatin (MYCOSTATIN) 956776 UNIT/ML suspension Take 5 mLs by mouth 4 times daily for 10 days Swish and swallow 200 mL 0 10/18/2023 10/28/2023 Active Start: 01-30-2023 take 4 mL by mouth f our times daily Nystatin 449142 UNIT/ML 4 ml swish and swallow Mouth/Throat Four times a day for 14 days Jan, Not-Taking Start: 12-20-2022 take 5 mL by mouth f our times daily nystatin (MYCOSTATIN) 970657 UNIT/ML suspension Take 5 mLs by mouth 4 times daily Swish and swallow. 200 mL 0 02/27/2023 Active Start: 11-25-2022 End: 11-25-2022 take 5 mL by mouth four times daily nystatin (MYCOSTATIN) 616420 UNIT/ML suspension Take 5 mLs by mouth 4 times daily Swish and swallow. 200 mL 0 11/25/2022 11/25/2022 Discontinued (DUPLICATE) Start: 08-15-2022 take 5 mL by mouth f our times daily nystatin (MYCOSTATIN) 403230 UNIT/ML suspension take 5 milliliters by mouth four times a day as directed 60 mL 2 08/15/2022 Active Start: 05-29-2022 take 5 mL by mouth f our times daily nystatin (MYCOSTATIN) 834202 UNIT/ML suspension Take 5 mLs by mouth 4 times daily 60 mL 2 05/29/2022 Active Start: 05-29-2022 Nystatin Activ e 1 UNIT MUCOUS MEM Twice daily May 29, 2022 1:00am Start: 02-08-2022 nystatin (MYCO STATIN) 587270 UNIT/GM cream Apply topically 2 times daily Apply topically 2 times daily. 60 g 0 02/08/2022 Active Start: 02-27-2021 take 5 mL by mouth f our times daily nystatin (MYCOSTATIN) 685190 UNIT/ML suspension Take 5 mLs by mouth 4 times daily 150 mL 0 02/27/2021 Active Nystatin 268581 units/g (4 sources) Nystatin 735199 units/g applied topically as directed four times [...] day(s), # 180 tab(s), Refills(s) 3, Pharmacy: [facility] [id number], 162, cm, 07/10/22 14:20:00 EST, Height/Length Dosing, [...] [Polyp of colon] Onset: 4 Episodic Other [employer] CO[employer] infection and poliomyelitis (8 sources) H/O: poliomyelitis [...] ALT [Catalytic activity/Vol] 10 U/L Normal 7-[address] [facility] Comment on above: Performed By: #### C 3, CH50, C4 #### [facility] , #### ESR, CMP, CBC, ADDONUAPLUS #### [facility] [address] [place] [address] [place] Albumin [Mass/volume] in Ser um or Plasma by Bromocresol green (BCG) dye binding methoOrdered By: Obie Hylton on 12-19-2023 Albumin BCG dye [Mass/Vol] 3.9 g/dL 3.5-5.[address] [facility] Alkaline phosphatase [Enzyma tic activity/volume] in Serum or PlasmaOrdered By: Obie Hylton on 12-19-2023 ALP [Catalytic activity/Vol] 56 U/L Normal 34-[address] [facility] Comment on above: Result Comment: PERF ORMED BY: [place] [address] PATHOLOGIST PROFESSIONAL NURSING TUTOR MANUEL PABON M.D. Performed By: #### C 3, CH50, C4 #### [facility] , #### ESR, CMP, CBC, ADDONUAPLUS #### [facility] [address] [place] [address] [place] Aspartate aminotransferase [ Enzymatic activity/volume] in Serum or PlasmaOrdered By: Obie Hylton on 12-19-2023 AST [Catalytic activity/Vol] 13 U/L Normal 13-[address] [facility] Comment on above: Performed By: #### C 3, CH50, C4 #### [facility] , #### ESR, CMP, CBC, ADDONUAPLUS #### [address] Automated basophil %Ordered By: Obie Hylton on 12-19-2023 Basophils/100 WBC (Bld) 0.3 % Normal . [facility] Comment on above: Performed By: #### C 3, CH50, C4 #### [facility] , #### ESR, CMP, CBC, ADDONUAPLUS #### [address] Automated basophil countOrde red By: Obie Hylton on 12-19-2023 Basophils (Bld) [#/Vol] 0.0 10*3/uL Normal 0.0-0.[address] [facility] Comment on above: Performed By: #### C 3, CH50, C4 #### [facility] , #### ESR, CMP, CBC, ADDONUAPLUS #### [address] Automated blood monocyte cou ntOrdered By: Obie Hylton on 12-19-2023 Monocytes (Bld) [#/Vol] 0.5 10*3/uL Normal 0.0-0.[address] [facility] Comment on above: Performed By: #### C 3, CH50, C4 #### [facility] , #### ESR, CMP, CBC, ADDONUAPLUS #### [address] Automated eosinophil %Ordere d By: Obie Ramirezrow on 12-19-2023 Eosinophils/100 WBC (Bld) 2.5 % Normal . [facility] Comment on above: Performed By: #### C 3, CH50, C4 #### [facility] , #### ESR, CMP, CBC, ADDONUAPLUS #### [facility] [address] [place] [address] Automated eosinophil countOr dered By: Obie Warner on 12-19-2023 Eosinophils (Bld) [#/Vol] 0.1 10*3/uL Normal 0.0-0.[address] [facility] Comment on above: Performed By: #### C 3, CH50, C4 #### [facility] , #### ESR, CMP, CBC, ADDONUAPLUS #### [address] Automated monocyte %Ordered By: Obie Hylton on 12-19-2023 Monocytes/100 WBC (Bld) 9.2 % Normal . [facility] Comment on above: Performed By: #### C 3, CH50, C4 #### [facility] , #### ESR, CMP, CBC, ADDONUAPLUS #### [address] Automated neutrophil %Ordere d By: Obie Hylton on 12-19-2023 Neutrophils/100 WBC (Bld) 70.1 % Normal . [facility] Comment on above: Performed By: #### C 3, CH50, C4 #### [facility] , #### ESR, CMP, CBC, ADDONUAPLUS #### [address] Bacteria [Presence] in Urine sediment by Light microscopyOrdered By: Obie Hylton on 12-19-2023 Bacteria LM Ql (Urine sed) Rare [HPF] High None Seen [facility] Bilirubin Test strip Ql (U)O rdered By: Obie Hylton on 12-19-2023 Bilirubin Ql (U) Negative Negative [facility] Bilirubin.total [Mass/volume ] in Serum or PlasmaOrdered By: Obie Hylton on 12-19-2023 Bilirubin [Mass/Vol] 0.4 mg/dL Normal 0.3-1.0 [facility] Comment on above: Performed By: #### C 3, CH50, C4 #### [facility] , #### ESR, CMP, CBC, ADDONUAPLUS #### [facility] [address] [place] [address] [place] Calcium [Mass/volume] in Ser um or PlasmaOrdered By: Obie Hylton on 12-19-2023 Calcium [Mass/Vol] 9.1 mg/dL Normal 8.6-10.3 [facility] Comment on above: Performed By: #### C 3, CH50, C4 #### [facility] , #### ESR, CMP, CBC, ADDONUAPLUS #### [facility] [address] [place] [address] Carbon dioxide, total [Moles /volume] in Serum or PlasmaOrdered By: Obie Hylton on 12-19-2023 CO2 [Moles/Vol] 27.0 mmol/L Normal 21.0-31.0 [facility] Comment on above: Performed By: #### C 3, CH50, C4 #### [facility] , #### ESR, CMP, CBC, ADDONUAPLUS #### [facility] [address] [place] [address] [place] Chloride [Moles/volume] in S liat or PlasmaOrdered By: Obie Hylton on 12-19-2023 Chloride [Moles/Vol] 107 mmol/L Normal 98-107 [facility] Comment on above: Performed By: #### C 3, CH50, C4 #### [facility] , #### ESR, CMP, CBC, ADDONUAPLUS #### [facility] [address] [place] [address] [place] Color of Urine by AutoOrdere d By: Obieradha Hylton on 12-19-2023 Color (U) Light-yellow Normal Yellow [facility] Comment on above: Order Comment: Name Collection Type:: Clean-Voided Midstream Performed By: #### C 3, CH50, C4 #### [facility] , #### ESR, CMP, CBC, ADDONUAPLUS #### [address] Complement C3on 12-19-2023 Complement C3 120 mg/dL Normal 82-167 [facility] Comment on above: Result Comment: Perf ormed at: [address] [id number] Manager Content: Usman Draper PhD, Phone: [phone] Performed By: #### C 3, CH50, C4 #### [facility] , #### ESR, CMP, CBC, ADDONUAPLUS #### [address] Complement C4on 12-19-2023 Complement C4 22 mg/dL Normal 12-38 [facility] Comment on above: Result Comment: PERF ORMED BY: [place] [address] PATHOLOGIST PROFESSIONAL NURSING TUTOR MANUEL PABON M.D. Performed By: #### C 3, CH50, C4 #### [facility] , #### ESR, CMP, CBC, ADDONUAPLUS #### [address] Complement Total (CH50)on Complement Total (CH50) 57 Normal >41 [facility] Comment on above: Result Comment: [...] determine out of range values. Performed at: [facility] [id number] Manager Content: Usman Draper PhD, Phone: [phone] PERFORMED BY: [place] [address] PATHOLOGIST PROFESSIONAL NURSING TUTOR MANUEL PABON M.D. Performed By: #### C 3, CH50, C4 #### [facility] , #### ESR, CMP, CBC, ADDONUAPLUS #### [address] Complete Blood Count Auto Di ffon 12-19-2023 Mean Corpuscular HGB Conc 33.8 g/dL Normal 32.0-35.0 [facility] Comment on above: Performed By: #### C 3, CH50, C4 #### [facility] , #### ESR, CMP, CBC, ADDONUAPLUS #### [address] NRBC% 0.2 /100{WBC} Normal 0-0.5 [facility] Comment on above: Performed By: #### C 3, CH50, C4 #### [facility] , #### ESR, CMP, CBC, ADDONUAPLUS #### [address] Comprehensive Metabolic Pane trevor 12-19-2023 Albumin [Mass/Vol] 3.9 g/dL Normal 3.5-5.7 [facility] Comment on above: Performed By: #### C 3, CH50, C4 #### [facility] , #### ESR, CMP, CBC, ADDONUAPLUS #### [address] GFR/1.73 sq M.predicted MDRD (S/P/Bld) [Vol rate/Area] 47.958 mL/min/{1.73_m2} Normal [facility] Comment on above: Performed By: #### C 3, CH50, C4 #### [facility] , #### ESR, CMP, CBC, ADDONUAPLUS #### [address] Creatinine [Mass/volume] in Serum or PlasmaOrdered By: Obie Hylton on 12-19-2023 Creatinine [Mass/Vol] 1.16 mg/dL Normal 0.60-1.20 [facility] Comment on above: Performed By: #### C 3, CH50, C4 #### [facility] , #### ESR, CMP, CBC, ADDONUAPLUS #### [place] [address] [place] Dipstick and Microscopicon 0 12-19-2023 Bacteria,Urine Rare High None Seen [facility] Comment on above: Order Comment: Name Collection Type:: Clean-Voided Midstream Result Comment: PERF ORMED BY: [place] [address] PATHOLOGIST PROFESSIONAL NURSING TUTOR MANUEL PABON M.D. Performed By: #### C 3, CH50, C4 #### [facility] , #### ESR, CMP, CBC, ADDONUAPLUS #### [place] [address] [place] Bilirubin,Urine Negative Normal Negative [facility] Comment on above: Order Comment: Name Collection Type:: Clean-Voided Midstream Performed By: #### C 3, CH50, C4 #### [facility] , #### ESR, CMP, CBC, ADDONUAPLUS #### [place] [address] [place] Glucose Ql (U) Normal Normal Normal [facility] Comment on above: Order Comment: Name Collection Type:: Clean-Voided Midstream Performed By: #### C 3, CH50, C4 #### [facility] , #### ESR, CMP, CBC, ADDONUAPLUS #### [place] [address] [place] Nitrite,Urine Negative Normal Negative [facility] Comment on above: Order Comment: Name Collection Type:: Clean-Voided Midstream Performed By: #### C 3, CH50, C4 #### [facility] , #### ESR, CMP, CBC, ADDONUAPLUS #### [address] Occult Blood,Urine Negative Normal Negative [facility] Comment on above: Order Comment: Name Collection Type:: Clean-Voided Midstream Performed By: #### C 3, CH50, C4 #### [facility] , #### ESR, CMP, CBC, ADDONUAPLUS #### [address] Protein,Urine Negative Normal Negative [facility] Comment on above: Order Comment: Name Collection Type:: Clean-Voided Midstream Performed By: #### C 3, CH50, C4 #### [facility] , #### ESR, CMP, CBC, ADDONUAPLUS #### [address] RBC,Urine None Seen Normal 0-4 [facility] Comment on above: Order Comment: Name Collection Type:: Clean-Voided Midstream Performed By: #### C 3, CH50, C4 #### [facility] , #### ESR, CMP, CBC, ADDONUAPLUS #### [address] Specificy [place],Urine 1.020 Normal 1.001-1.03 0 [facility] Comment on above: Order Comment: Name Collection Type:: Clean-Voided Midstream Performed By: #### C 3, CH50, C4 #### [facility] , #### ESR, CMP, CBC, ADDONUAPLUS #### [place] [address] [place] Squamous Epithelial Cell,Urine 0-1 Normal 0-2 [facility] Comment on above: Order Comment: Name Collection Type:: Clean-Voided Midstream Performed By: #### C 3, CH50, C4 #### [facility] , #### ESR, CMP, CBC, ADDONUAPLUS #### [address] Urobilinogen,Urine Normal Normal Normal [facility] Comment on above: Order Comment: Name Collection Type:: Clean-Voided Midstream Performed By: #### C 3, CH50, C4 #### [facility] , #### ESR, CMP, CBC, ADDONUAPLUS #### [address] WBC,Urine None Seen Normal 0-4 [facility] Comment on above: Order Comment: Name Collection Type:: Clean-Voided Midstream Performed By: #### C 3, CH50, C4 #### [facility] , #### ESR, CMP, CBC, ADDONUAPLUS #### [address] Epithelial cells.squamous [# /area] in Urine sediment by Microscopy high power fieldOrdered By: Obie Hylton on 12-19-2023 Epithelial cells.squamous LM.HPF (Urine sed) [#/Area] 0-1 [HPF] 0-[address] [facility] Erythrocyte Sedimentation Ra heather 12-19-2023 ESR (Bld) [Velocity] 12 mm/h Normal 0-29 [facility] Comment on above: Result Comment: PERF ORMED BY: [place] [address] PATHOLOGIST PROFESSIONAL NURSING TUTOR MANUEL PABON M.D. Performed By: #### C 3, CH50, C4 #### [facility] , #### ESR, CMP, CBC, ADDONUAPLUS #### [address] Erythrocyte distribution wid th [Ratio] by Automated countOrdered By: Obie Hylton on 12-19-2023 Erythrocyte distribution width (RBC) [Ratio] 15.0 % Normal 11.9-15.[address] [facility] Comment on above: Performed By: #### C 3, CH50, C4 #### [facility] , #### ESR, CMP, CBC, ADDONUAPLUS #### [facility] [address] Erythrocyte sedimentation ra te by Photometric methodOrdered By: Obie Hylton on 12-19-2023 ESR Photometric method (Bld) [Velocity] 12 mm/hr 0-[address] [facility] Erythrocytes [#/area] in Uri ne sediment by Microscopy high power fieldOrdered By: Obie Hylton on 12-19-2023 RBC LM.HPF (Urine sed) [#/Area] None seen [HPF] 0-[address] [facility] Erythrocytes [#/volume] in B lood by Automated countOrdered By: Obie Hylton on 12-19-2023 RBC (Bld) [#/Vol] 3.56 10*6/uL Low 3.60-5.[address] [facility] Comment on above: Performed By: #### C 3, CH50, C4 #### [facility] , #### ESR, CMP, CBC, ADDONUAPLUS #### [facility] [address] [place] [address] [place] Glucose [Mass/volume] in Ser um or PlasmaOrdered By: Obie Hylton on 12-19-2023 Glucose [Mass/Vol] 92 mg/dL Normal 70-100 [facility] Comment on above: ADA recommended refe rence rangeRandom Glucose Reference Range is dependent on time and content of last meal. Glucose of more than 200 mg/dL in a nonstressed, ambulatory subject supports the diagnosis of Diabetes Mellitus. Result Comment: [place] om Glucose Reference Range is dependent on time and content of last meal. Glucose of more than 200 mg/dL in a nonstressed, ambulatory subject supports the diagnosis of Diabetes Mellitus. ADA recommended reference range Performed By: #### C 3, CH50, C4 #### [facility] , #### ESR, CMP, CBC, ADDONUAPLUS #### [facility] [address] [place] [address] [place] Glucose [Mass/volume] in Uri ne by Test stripOrdered By: Obie Hylton on 12-19-2023 Glucose Test strip (U) [Mass/Vol] Normal mg/dL Normal [facility] Hematocrit [Volume Fraction] of Blood by Automated countOrdered By: Obie Hylton on 12-19-2023 Hematocrit (Bld) [Volume fraction] 33.2 % Low 34.0-46.[address] [facility] Comment on above: Performed By: #### C 3, CH50, C4 #### [facility] , #### ESR, CMP, CBC, ADDONUAPLUS #### [address] Hemoglobin Test strip Ql (U) Ordered By: Obie Hylton on 12-19-2023 Hemoglobin Ql (U) Negative Negative [facility] Hemoglobin [Mass/volume] in BloodOrdered By: Obie Hylton on 12-19-2023 Hemoglobin (Bld) [Mass/Vol] 11.2 g/dL Low 11.8-15.[address] [facility] Comment on above: Performed By: #### C 3, CH50, C4 #### [facility] , #### ESR, CMP, CBC, ADDONUAPLUS #### [facility] [address] [place] [address] Ketones [Presence] in Urine by Test stripOrdered By: Obie Hylton on 12-19-2023 Ketones Ql (U) Negative Normal Negative [facility] Comment on above: Order Comment: Name Collection Type:: Clean-Voided Midstream Performed By: #### C 3, CH50, C4 #### [facility] , #### ESR, CMP, CBC, ADDONUAPLUS #### [facility] [address] [place] [address] [place] Leukocyte esterase [Presence ] in Urine by Test stripOrdered By: Obie Hylton on 12-19-2023 Leukocyte esterase Test strip Ql (U) Negative Normal Negative [facility] Comment on above: Order Comment: Name Collection Type:: Clean-Voided Midstream Performed By: #### C 3, CH50, C4 #### [facility] , #### ESR, CMP, CBC, ADDONUAPLUS #### [facility] [address] [place] [address] [place] Leukocytes [#/area] in Urine sediment by Microscopy high power fieldOrdered By: Obie Hylton on 12-19-2023 WBC LM.HPF (Urine sed) [#/Area] None seen [HPF] 0-[address] [facility] Leukocytes [#/volume] correc pepito for nucleated erythrocytes in Blood by Automated counOrdered By: Obieradha Hylton on 12-19-2023 WBC corrected for nucl RBC Auto (Bld) [#/Vol] 5.9 10*3/uL 3.8-11.[address] [facility] Leukocytes [#/volume] in Blo od by Automated countOrdered By: Obie Hylton on 12-19-2023 WBC (Bld) [#/Vol] 5.9 10*3/uL Normal 3.8-11.6 [facility] Comment on above: Performed By: #### C 3, CH50, C4 #### [facility] , #### ESR, CMP, CBC, ADDONUAPLUS #### [place] [address] [place] Lymphocytes [#/volume] in Bl ood by Automated countOrdered By: Obie Hylton on 12-19-2023 Lymphocytes (Bld) [#/Vol] 1.1 10*3/uL Normal 1.00-4.[address] [facility] Comment on above: Performed By: #### C 3, CH50, C4 #### [facility] , #### ESR, CMP, CBC, ADDONUAPLUS #### [facility] [address] [place] [address] [place] Lymphocytes/100 leukocytes i n Blood by Automated countOrdered By: Obie Hylton on 12-19-2023 Lymphocytes/100 WBC (Bld) 17.9 % Normal . [facility] Comment on above: Performed By: #### C 3, CH50, C4 #### [facility] , #### ESR, CMP, CBC, ADDONUAPLUS #### [address] MCH [Entitic mass] by Automa pepito countOrdered By: Obie Ramirezrow on 12-19-2023 MCH (RBC) [Entitic mass] 31.5 pg Normal 24.7-34.[address] [facility] Comment on above: Performed By: #### C 3, CH50, C4 #### [facility] , #### ESR, CMP, CBC, ADDONUAPLUS #### [address] MCHC Auto (RBC) [Mass/Vol]Or dered By: Obie Hylton on 12-19-2023 MCHC (RBC) [Mass/Vol] 33.8 g/dL 32.0-35.0 [facility] MCV [Entitic volume] by Auto mated countOrdered By: Obie Hylton on 12-19-2023 MCV (RBC) [Entitic vol] 93.2 fL Normal 80-[address] [facility] Comment on above: Performed By: #### C 3, CH50, C4 #### [facility] , #### ESR, CMP, CBC, ADDONUAPLUS #### [address] Neutrophils [#/volume] in Bl ood by Automated countOrdered By: Obie Hylton on 12-19-2023 Neutrophils (Bld) [#/Vol] 4.1 10*3/uL Normal 1.8-7.[address] [facility] Comment on above: Performed By: #### C 3, CH50, C4 #### [facility] , #### ESR, CMP, CBC, ADDONUAPLUS #### [address] Nitrite Test strip Ql (U)Ord ered By: Obie Hylton on 12-19-2023 Nitrite Ql (U) Negative Negative [facility] No Panel InformationOrdered By: Obie Hylton on 12-19-2023 Estimated GFR (CKD-EPI) 47.958 mL/Min [facility] Creatinine Clearance (Chem N/A [facility] Total Complement (CH50) 57 U/mL >[address] [facility] Comment on above: Age Male Female 1 [...] to determine out of range values.Performed at: [facility] [place] [id number] Director: Usman Draper PhD, Phone: [phone] Nucleated erythrocytes [Pres ence] in Blood by Automated countOrdered By: Obie Hylton on 12-19-2023 Nucleated RBC Auto Ql (Bld) 0.2 /100{WBC} 0-0.[address] [facility] Platelet mean volume [Entiti c volume] in Blood by Automated countOrdered By: Obie Hylton on 12-19-2023 Platelet mean volume (Bld) [Entitic vol] 8.7 fL Normal 6.3-10.[address] [facility] Comment on above: Performed By: #### C 3, CH50, C4 #### [facility] , #### ESR, CMP, CBC, ADDONUAPLUS #### [facility] [address] [place] [address] [place] Platelets [#/volume] in Bloo d by Automated countOrdered By: Obie Hylton on 12-19-2023 Platelets (Bld) [#/Vol] 201 10*3/uL Normal 150-[address] [facility] Comment on above: Performed By: #### C 3, CH50, C4 #### [facility] , #### ESR, CMP, CBC, ADDONUAPLUS #### [facility] [address] [place] [id number] [place] Potassium [Moles/volume] in Serum or PlasmaOrdered By: Obie Hylton on 12-19-2023 Potassium [Moles/Vol] 4.3 mmol/L Normal 3.5-5.1 [facility] Comment on above: Performed By: #### C 3, CH50, C4 #### [facility] , #### ESR, CMP, CBC, ADDONUAPLUS #### [facility] [address] [place] [address] Protein Test strip (U) [Mass /Vol]Ordered By: Obieradha Hylton on 12-19-2023 Protein (U) [Mass/Vol] Negative Negative [facility] Protein [Mass/volume] in Ser um or PlasmaOrdered By: Obie Warner on 12-19-2023 Protein [Mass/Vol] 5.9 g/dL Low 6.4-8.9 [facility] Comment on above: Performed By: #### C 3, CH50, C4 #### [facility] , #### ESR, CMP, CBC, ADDONUAPLUS #### [address] Serum globulin measurement b y calculation (mass/volume)Ordered By: Obie Hylton on 12-19-2023 Globulin (S) [Mass/Vol] 2.0 g/dL [facility] Comment on above: Performed By: #### C 3, CH50, C4 #### [facility] , #### ESR, CMP, CBC, ADDONUAPLUS #### [facility] [address] [place] [address] Serum or plasma albumin/glob ulin mass ratioOrdered By: Obie Hylton on 12-19-2023 Albumin/Globulin [Mass ratio] 2.0 {ratio} [facility] Comment on above: Performed By: #### C 3, CH50, C4 #### [facility] , #### ESR, CMP, CBC, ADDONUAPLUS #### [facility] [address] [place] [address] Serum or plasma anion gap de terminationOrdered By: Obie Hylton on 12-19-2023 Anion gap [Moles/Vol] 9.3 mmol/L Normal 6.0-15.0 [facility] Comment on above: Performed By: #### C 3, CH50, C4 #### [facility] , #### ESR, CMP, CBC, ADDONUAPLUS #### [address] Serum or plasma complement C 3 measurement (mass/volume)Ordered By: Obie Hylton on 12-19-2023 Complement C3 [Mass/Vol] 120 mg/dL 82-[address] [facility] Comment on above: Performed at: [place] [id number] Director: Usman Draper PhD, Phone: [phone] Serum or plasma complement C 4 measurement (mass/volume)Ordered By: Obie Hylton on 12-19-2023 Complement C4 [Mass/Vol] 22 mg/dL 12-[address] [facility] Sodium [Moles/volume] in Ser um or PlasmaOrdered By: Obie Hylton on 12-19-2023 Sodium [Moles/Vol] 139 mmol/L Normal 136-145 [facility] Comment on above: Performed By: #### C 3, CH50, C4 #### [facility] , #### ESR, CMP, CBC, ADDONUAPLUS #### [address] Specific gravity Test strip (U) [Rel density]Ordered By: Obie Hylton on 12-19-2023 Specific gravity (U) [Rel density] 1.020 1.001-1.[address] [facility] Urea nitrogen [Mass/volume] in Serum or PlasmaOrdered By: Obie Hylton on 12-19-2023 Urea nitrogen [Mass/Vol] 33 mg/dL High 7-[address] [facility] Comment on above: Performed By: #### C 3, CH50, C4 #### [facility] , #### ESR, CMP, CBC, ADDONUAPLUS #### [facility] [address] [place] [address] Urine appearanceOrdered By: Obie Hylton on 12-19-2023 Appearance (U) Clear Normal Clear [facility] Comment on above: Order Comment: Name Collection Type:: Clean-Voided Midstream Performed By: #### C 3, CH50, C4 #### [facility] , #### ESR, CMP, CBC, ADDONUAPLUS #### [facility] [address] [place] [address] Urobilinogen Test strip (U) [Mass/Vol]Ordered By: Obie Hylton on 12-19-2023 Urobilinogen (U) [Mass/Vol] Normal mg/dL Normal [facility] pH of Urine by Test stripOrd ered By: Obie Hylton on 12-19-2023 pH (U) 5.5 [pH] Normal 5.0-9.[address] [facility] Comment on above: Order Comment: Name Collection Type:: Clean-Voided Midstream Performed By: #### C 3, CH50, C4 #### [facility] , #### ESR, CMP, CBC, ADDONUAPLUS #### [facility] [address] [place] [address] Basic Metabolic Profon 12-11 Anion gap [Moles/Vol] 11 mmol/L Normal - [facility] Comment on above: Performed By: #### B MP, TROPI, CBC, TSH #### [facility] [address] [place] [id number] Manager Content: Angelito Muir MD BUN/CRE Ratio 19 Normal 03-20 [facility] Comment on above: Performed By: #### B MP, TROPI, CBC, TSH #### [facility] [address] [place] [phone] Manager Content: Angelito Muir MD Calcium [Mass/Vol] 9.1 mg/dL Normal 8.6-10.4 [facility] Comment on above: Performed By: #### B MP, TROPI, CBC, TSH #### [facility] [address] [place] [address] Manager Content: Angelito Muir MD Chloride [Moles/Vol] 104 mmol/L Normal 98-107 [facility] Comment on above: Performed By: #### B MP, TROPI, CBC, TSH #### [facility] [address] [place] [address] Manager Content: Angelito Muir MD CO2 [Moles/Vol] 22 mmol/L Normal 20-31 [facility] Comment on above: Performed By: #### B MP, TROPI, CBC, TSH #### [facility] [address] [place] [address] Manager Content: Angelito Muir MD Creatinine [Mass/Vol] 1.3 mg/dL High 0.5-0.9 [facility] Comment on above: Performed By: #### B MP, TROPI, CBC, TSH #### [facility] [address] [place] [address] Manager Content: Angelito Muir MD GFR/1.73 sq M.predicted among non-blacks MDRD (S/P/Bld) [Vol rate/Area] 42 mL/min/{1.73_m2} Low >60 [facility] Comment on above: Result Comment: [...] #### B MP, TROPI, CBC, TSH #### [facility] [address] [place] [address] Manager Content: Angelito Muir MD Glucose [Mass/Vol] 88 mg/dL Normal 70-99 [facility] Comment on above: Performed By: #### B MP, TROPI, CBC, TSH #### [facility] [address] [place] [address] Manager Content: Angelito Muir MD Potassium [Moles/Vol] 4.3 mmol/L Normal 3.7-5.3 [facility] Comment on above: Performed By: #### B MP, TROPI, CBC, TSH #### [facility] [address] [place] [address] Manager Content: Angelito Muir MD Sodium [Moles/Vol] 137 mmol/L Normal 135-144 [facility] Comment on above: Performed By: #### B MP, TROPI, CBC, TSH #### [facility] [address] [place] [address] Manager Content: Angelito Muir MD Urea nitrogen [Mass/Vol] 25 mg/dL High 8-23 [facility] Comment on above: Performed By: #### B MP, TROPI, CBC, TSH #### [facility] [address] [place] [address] Manager Content: Angelito Muir MD Basic Metabolic Panelon 05-1 Anion gap [Moles/Vol] 13 mmol/L 9 - 17 mmol/L [facility] Calcium [Mass/Vol] 9.1 mg/dL 8.6 - 10. 4 mg/dL [facility] Chloride [Moles/Vol] 104 mmol/L 98 - 10 7 mmol/L [facility] CO2 [Moles/Vol] 20 mmol/L 20 - 31 mmol/L [facility] Creatinine [Mass/Vol] 1.1 mg/dL High 0.5 - 0.9 mg/dL [facility] Est, Glom Filt Rate 51 Low - [facility] Comment on above: These results are [...] mg/dL High 70 - 99 mg/dL [facility] Interpretation and review of laboratory results Abnormal [facility] Potassium [Moles/Vol] 3.3 mmol/L Low 3.7 - 5.3 mmol/L [facility] Sodium [Moles/Vol] 137 mmol/L 135 - 144 mmol/L [facility] Urea nitrogen [Mass/Vol] 26 mg/dL High 8 - 23 mg/dL [facility] Urea nitrogen/Creatinine [Mass ratio] 24 mg/mg High - [facility] Basic Metabolic Profon 11-13 Anion gap [Moles/Vol] 13 mmol/L Normal - [facility] Comment on above: Performed By: #### B MP, TROPI, CBC, TSH #### [facility] [address] [place] [address] Manager Content: Angelito Muir MD BUN/CRE Ratio 24 High - [facility] Comment on above: Performed By: #### B MP, TROPI, CBC, TSH #### [facility] [address] [place], [place] [id number] Manager Content: Angelito Muir MD Calcium [Mass/Vol] 9.1 mg/dL Normal 8.6-10.4 [facility] Comment on above: Performed By: #### B MP, TROPI, CBC, TSH #### [facility] [address] [place] [address] Manager Content: Angelito Muir MD Chloride [Moles/Vol] 104 mmol/L Normal 98-107 [facility] Comment on above: Performed By: #### B MP, TROPI, CBC, TSH #### [facility] [address] [place] [address] Manager Content: Angelito Muir MD CO2 [Moles/Vol] 20 mmol/L Normal 20-31 [facility] Comment on above: Performed By: #### B MP, TROPI, CBC, TSH #### [facility] [address] [place] [address] Manager Content: Angelito Muir MD Creatinine [Mass/Vol] 1.1 mg/dL High 0.5-0.9 [facility] Comment on above: Performed By: #### B MP, TROPI, CBC, TSH #### [facility] [address] [place] [address] Manager Content: Angelito Muir MD GFR/1.73 sq M.predicted among non-blacks MDRD (S/P/Bld) [Vol rate/Area] 51 mL/min/{1.73_m2} Low >60 [facility] Comment on above: Result Comment: [...] #### B MP, TROPI, CBC, TSH #### [facility] [address] [place] [address] Manager Content: Angelito Muir MD Glucose [Mass/Vol] 153 mg/dL High 70-99 [facility] Comment on above: Performed By: #### B MP, TROPI, CBC, TSH #### [facility] [address] [place] [address] Manager Content: Angelito Muir MD Potassium [Moles/Vol] 3.3 mmol/L Low 3.7-5.3 [facility] Comment on above: Performed By: #### B MP, TROPI, CBC, TSH #### [facility] [address] [place] [address] Manager Content: Angelito Muir MD Sodium [Moles/Vol] 137 mmol/L Normal 135-144 [facility] Comment on above: Performed By: #### B MP, TROPI, CBC, TSH #### [facility] [address] [place] [address] Manager Content: Angelito Muir MD Urea nitrogen [Mass/Vol] 26 mg/dL High 8-23 [facility] Comment on above: Performed By: #### B MP, TROPI, CBC, TSH #### [facility] [address] [place] [address] Manager Content: Angelito Muir MD CBCon 11-14-2023 Erythrocyte distribution width (RBC) [Ratio] 14.7 % 12.1 - 15.2 % [facility] Hematocrit (Bld) [Volume fraction] 37.0 % 36.0 - 46.0 % [facility] Hemoglobin (Bld) [Mass/Vol] 12.2 g/dL 12.0 - 16.0 g/dL [facility] Interpretation and review of laboratory results Abnormal [facility] MCH (RBC) [Entitic mass] 31.1 pg 26.0 - 34.0 pg [facility] MCHC (RBC) [Mass/Vol] 33.0 g/dL 31.0 - 37.0 g/dL [facility] MCV (RBC) [Entitic vol] 94.4 fL 80.0 - 100.0 fL [facility] Platelet mean volume (Bld) [Entitic vol] 10.3 fL 6.0 - 12.0 fL [facility] Platelets (Bld) [#/Vol] 179 10*3/uL [facility] RBC (Bld) [#/Vol] 3.92 10*6/uL Low 4.00 - 5.20 m/uL [facility] WBC other (Bld) [#/Vol] 4.3 [facility] Erythrocyte distribution width (RBC) [Ratio] 14.7 % Normal 12.1-15.2 [facility] Comment on above: Performed By: #### B MP, TROPI, CBC, TSH #### [facility] [address] [place] [phone] Manager Content: Angelito Muir MD Hematocrit (Bld) [Volume fraction] 37.0 % Normal 36.0-46.0 [facility] Comment on above: Performed By: #### B MP, TROPI, CBC, TSH #### [facility] [address] [place] [address] Manager Content: Angelito Muir MD Hemoglobin (Bld) [Mass/Vol] 12.2 g/dL Normal 12.0-16.0 [facility] Comment on above: Performed By: #### B MP, TROPI, CBC, TSH #### [facility] [address] [place] [address] Manager Content: Angelito Muir MD MCH (RBC) [Entitic mass] 31.1 pg Normal 26.0-34.0 [facility] Comment on above: Performed By: #### B MP, TROPI, CBC, TSH #### [facility] [address] [place] [address] Manager Content: Angelito Muir MD MCHC (RBC) [Mass/Vol] 33.0 g/dL Normal 31.0-37.0 [facility] Comment on above: Performed By: #### B MP, TROPI, CBC, TSH #### [facility] [address] [place] [address] Manager Content: Angelito Muir MD MCV (RBC) [Entitic vol] 94.4 fL Normal 80.0-100.0 [facility] Comment on above: Performed By: #### B MP, TROPI, CBC, TSH #### [facility] [address] [place] [address] Manager Content: Angelito Muir MD Platelet mean volume (Bld) [Entitic vol] 10.3 fL Normal 6.0-12.0 [facility] Comment on above: Performed By: #### B MP, TROPI, CBC, TSH #### [facility] [address] [place] [address] Manager Content: Angelito Muir MD Platelets (Bld) [#/Vol] 179 10*3/uL Normal 140-450 [facility] Comment on above: Performed By: #### B MP, TROPI, CBC, TSH #### [facility] [address] [place] [address] Manager Content: Angelito Muir MD RBC (Bld) [#/Vol] 3.92 10*6/uL Low 4.00-5.20 [facility] Comment on above: Performed By: #### B MP, TROPI, CBC, TSH #### [facility] [address] [place] [address] Manager Content: Angelito Muir MD WBC (Bld) [#/Vol] 4.3 10*3/uL Normal 3.5-11.0 [facility] Comment on above: Performed By: #### B MP, TROPI, CBC, TSH #### [facility] [address] [place] [phone] Manager Content: Angelito Muir MD No Panel Informationon 11-13 [facility] TSHon 11-14-2023 TSH Qn 1.80 m[IU]/L [facility] Thyroid Stim. Horm.on 2023 Thyroid Stim. Horm. 1.80 uIU/mL Normal 0.30-5.00 [facility] Comment on above: Performed By: #### B MP, TROPI, CBC, TSH #### [facility] [address] [place] [address] Manager Content: Angelito Muir MD Troponinon 11-14-2023 Troponin I.cardiac High sensitivity method [Mass/Vol] 10 ng/L 0 - 14 ng/L [facility] Comment on above: High Sensitivity Tro ponin values cannot be compared with other Troponin methodologies. Troponin, High Sens 10 ng/L Normal 0-14 [facility] Comment on above: Result Comment: High Sensitivity Troponin values cannot be compared with other Troponin methodologies. Performed By: #### B MP, TROPI, CBC, TSH #### [facility] [address] [place] [address] Manager Content: Angelito Muir MD CBC with Auto Differentialon 10-23-2023 Absolute Bands 0.18 [facility] Bands 4 % 0 - 10 % [facility] Basophils (Bld) [#/Vol] [facility] Basophils/100 WBC (Bld) 0 - 2 % [facility] Eosinophils % 0 - 5 % [facility] Eosinophils (Bld) [#/Vol] [facility] Erythrocyte distribution width (RBC) [Ratio] 14.7 % 12.1 - 15.2 % [facility] Hematocrit (Bld) [Volume fraction] 39.4 % 36.0 - 46.0 % [facility] Hemoglobin (Bld) [Mass/Vol] 12.9 g/dL 12.0 - 16.0 g/dL [facility] Immature granulocytes (Bld) [#/Vol] [facility] Immature granulocytes/100 WBC (Bld) 0 % [facility] Interpretation and review of laboratory results Abnormal [facility] Lymphocytes/100 WBC (Bld) 5 % Low 15 - 40 % [facility] Lymphocytes/100 WBC (Bld) 0.23 % Low [facility] MCH (RBC) [Entitic mass] 30.6 pg 26.0 - 34.0 pg [facility] MCHC (RBC) [Mass/Vol] 32.7 g/dL 31.0 - 37.0 g/dL [facility] MCV (RBC) [Entitic vol] 93.4 fL 80.0 - 100.0 fL [facility] Monocytes/100 WBC (Bld) 6 % 4 - 8 % [facility] Monocytes/100 WBC (Bld) 0.27 % [facility] Morphology Igor (Bld) [Interp] Platelet morphology normal. [facility] Morphology Igor (Bld) [Interp] RBC morphology normal. [facility] Morphology Igor (Bld) [Interp] Manual Differential Performed [facility] Neutrophils/100 WBC (Bld) 85 % High 47 - 75 % [facility] Platelet mean volume (Bld) [Entitic vol] 9.4 fL 6.0 - 12.0 fL [facility] Platelets (Bld) [#/Vol] 152 10*3/uL [facility] RBC (Bld) [#/Vol] 4.22 10*6/uL 4.00 - 5.20 m/uL [facility] Segmented neutrophils/100 WBC (Bld) 3.82 % [facility] WBC other (Bld) [#/Vol] 4.5 [facility] CBC with Diffon 10-23-2023 Abs. Bands 0.18 k/uL Normal 0.0-1.0 [facility] Comment on above: Performed By: #### B MP, TROPI, CBC, TSH #### [facility] [address] [place] [address] Manager Content: Angelito Muir MD Abs. Basophil Normal 0.0-0.2 [facility] Comment on above: Performed By: #### B MP, TROPI, CBC, TSH #### [facility] [address] [place] [address] Manager Content: Angelito Muir MD Abs. Eosinophil Normal 0.0-0.4 [facility] Comment on above: Performed By: #### B MP, TROPI, CBC, TSH #### [facility] [address] [place] [address] Manager Content: Angelito Muir MD Abs.Imm.Granulocyte Normal 0.00-0.30 [facility] Comment on above: Performed By: #### B MP, TROPI, CBC, TSH #### [facility] [address] [place] [address] Manager Content: Angelito Muir MD Abs.Neutrophil (Seg) 3.82 k/uL Normal 2.5-7.0 [facility] Comment on above: Performed By: #### B MP, TROPI, CBC, TSH #### [facility] [address] [place] [address] Manager Content: Angelito Muir MD Bands 4 % Normal 0-10 [facility] Comment on above: Performed By: #### B MP, TROPI, CBC, TSH #### [facility] [address] [place] [address] Manager Content: Angelito Muir MD Basophil Normal 0-2 [facility] Comment on above: Performed By: #### B MP, TROPI, CBC, TSH #### [facility] [address] [place] [address] Manager Content: Angelito Muir MD Eosinophil Normal 0-5 [facility] Comment on above: Performed By: #### B MP, TROPI, CBC, TSH #### [facility] [address] [place] [address] Manager Content: Angelito Muir MD Immature Granulocyte Normal 0 [facility] Comment on above: Performed By: #### B MP, TROPI, CBC, TSH #### [facility] [address] [place] [address] Manager Content: Angelito Muir MD Lymphocytes (Bld) [#/Vol] 0.23 10*3/uL Low 1.0-4.8 [facility] Comment on above: Performed By: #### B MP, TROPI, CBC, TSH #### [facility] [address] [place], [place] [phone] Manager Content: Angelito Muir MD Lymphocytes/100 WBC (Bld) 5 % Low 15-40 [facility] Comment on above: Performed By: #### B MP, TROPI, CBC, TSH #### [facility] [address] [place], [place] [phone] Manager Content: Angelito Muir MD Monocytes (Bld) [#/Vol] 0.27 10*3/uL Normal 0.0-1.0 [facility] Comment on above: Performed By: #### B MP, TROPI, CBC, TSH #### [facility] [address] [place], [place] [phone] Manager Content: Angelito Muir MD Monocytes/100 WBC (Bld) 6 % Normal 4-8 [facility] Comment on above: Performed By: #### B MP, TROPI, CBC, TSH #### [facility] [address] [place], [place] [phone] Manager Content: Angelito Muir MD Morphology Igor (Bld) [Interp] Platelet morphology normal. Normal [facility] Comment on above: Result Comment: RBC morphology normal. Manual Differential Performed Performed By: #### B MP, TROPI, CBC, TSH #### [facility] [address] [place], [place] [phone] Manager Content: Angelito Muir MD Neutrophil (Seg) 85 % High 47-75 [facility] Comment on above: Performed By: #### B MP, TROPI, CBC, TSH #### [facility] [address] [place], [place] [phone] Manager Content: Angelito Muir MD Erythrocyte distribution width (RBC) [Ratio] 14.7 % Normal 12.1-15.2 [facility] Comment on above: Performed By: #### B MP, TROPI, CBC, TSH #### [facility] [address] [place] [address] Manager Content: Angelito Muir MD Hematocrit (Bld) [Volume fraction] 39.4 % Normal 36.0-46.0 [facility] Comment on above: Performed By: #### B MP, TROPI, CBC, TSH #### [facility] [address] [place] [phone] Manager Content: Angelito Muir MD Hemoglobin (Bld) [Mass/Vol] 12.9 g/dL Normal 12.0-16.0 [facility] Comment on above: Performed By: #### B MP, TROPI, CBC, TSH #### [facility] [address] [place] [address] Manager Content: Angelito Muir MD MCH (RBC) [Entitic mass] 30.6 pg Normal 26.0-34.0 [facility] Comment on above: Performed By: #### B MP, TROPI, CBC, TSH #### [facility] [address] [place] [phone] Manager Content: Angelito Muir MD MCHC (RBC) [Mass/Vol] 32.7 g/dL Normal 31.0-37.0 [facility] Comment on above: Performed By: #### B MP, TROPI, CBC, TSH #### [facility] [address] [place] [phone] Manager Content: Angelito Muir MD MCV (RBC) [Entitic vol] 93.4 fL Normal 80.0-100.0 [facility] Comment on above: Performed By: #### B MP, TROPI, CBC, TSH #### [facility] [address] [place] [phone] Manager Content: Angelito Muir MD Platelet mean volume (Bld) [Entitic vol] 9.4 fL Normal 6.0-12.0 [facility] Comment on above: Performed By: #### B MP, TROPI, CBC, TSH #### [facility] [address] [place], [place] [phone] Manager Content: Angelito Muir MD Platelets (Bld) [#/Vol] 152 10*3/uL Normal 140-450 [facility] Comment on above: Performed By: #### B MP, TROPI, CBC, TSH #### [facility] [address] [place], [place] [phone] Manager Content: Angelito Muir MD RBC (Bld) [#/Vol] 4.22 10*6/uL Normal 4.00-5.20 [facility] Comment on above: Performed By: #### B MP, TROPI, CBC, TSH #### [facility] [address] [place], [place] [phone] Manager Content: Angelito Muir MD WBC (Bld) [#/Vol] 4.5 10*3/uL Normal 3.5-11.0 [facility] Comment on above: Performed By: #### B MP, TROPI, CBC, TSH #### [facility] [address] [place], [place] [phone] Manager Content: Angelito Muir MD Comp Metabolic Profon 2023 Albumin [Mass/Vol] 3.9 g/dL Normal 3.5-5.2 [facility] Comment on above: Performed By: #### B MP, TROPI, CBC, TSH #### [facility] [address] [place], [place] [phone] Manager Content: Angelito Muir MD Alkaline Phos 49 U/L Normal 35-104 [facility] Comment on above: Performed By: #### B MP, TROPI, CBC, TSH #### [facility] [address] [place], [place] [phone] Manager Content: Angelito Muir MD ALT [Catalytic activity/Vol] 12 U/L Normal 5-33 [facility] Comment on above: Performed By: #### B MP, TROPI, CBC, TSH #### [facility] [address] [place], [place] [phone] Manager Content: Angelito Muir MD Anion gap [Moles/Vol] 15 mmol/L Normal 9-17 [facility] Comment on above: Performed By: #### B MP, TROPI, CBC, TSH #### [facility] [address] [place], [place] [phone] Manager Content: Angelito Muir MD AST [Catalytic activity/Vol] 15 U/L Normal <32 [facility] Comment on above: Performed By: #### B MP, TROPI, CBC, TSH #### [facility] [address] [place], [place] [phone] Manager Content: Angelito Muir MD Bilirubin [Mass/Vol] 0.4 mg/dL Normal 0.3-1.2 [facility] Comment on above: Performed By: #### B MP, TROPI, CBC, TSH #### [facility] [address] [place], [place] [phone] Manager Content: Angelito Muir MD BUN/CRE Ratio 29 High 9-20 [facility] Comment on above: Performed By: #### B MP, TROPI, CBC, TSH #### [facility] [address] [place], [place] [phone] Manager Content: Angelito Muir MD Calcium [Mass/Vol] 8.9 mg/dL Normal 8.6-10.4 [facility] Comment on above: Performed By: #### B MP, TROPI, CBC, TSH #### [facility] [address] [place], [place] [phone] Manager Content: Angelito Muir MD Chloride [Moles/Vol] 107 mmol/L Normal 98-107 [facility] Comment on above: Performed By: #### B MP, TROPI, CBC, TSH #### [facility] [address] [place], [place] [phone] Manager Content: Angelito Muir MD CO2 [Moles/Vol] 17 mmol/L Low 20-31 [facility] Comment on above: Performed By: #### B MP, TROPI, CBC, TSH #### [facility] [address] [place], [place] [phone] Manager Content: Angelito Muir MD Creatinine [Mass/Vol] 1.1 mg/dL High 0.5-0.9 [facility] Comment on above: Performed By: #### B MAIDA TROPI, CBC, TSH #### [facility] [address] [place], [place] [phone] Manager Content: Angelito Muir MD GFR/1.73 sq M.predicted among non-blacks MDRD (S/P/Bld) [Vol rate/Area] 51 mL/min/{1.73_m2} Low >60 [facility] Comment on above: Result Comment: [...] #### B MP, TROPI, CBC, TSH #### [facility] [address] [place], [place] [phone] Manager Content: Angelito Muir MD Glucose [Mass/Vol] 136 mg/dL High 70-99 [facility] Comment on above: Performed By: #### B MP, TROPI, CBC, TSH #### [facility] [address] [place], [place] [phone] Manager Content: Angelito Muir MD Potassium [Moles/Vol] 3.6 mmol/L Low 3.7-5.3 [facility] Comment on above: Performed By: #### B MP, TROPI, CBC, TSH #### [facility] [address] [place] [address] Manager Content: Angelito Muir MD Protein [Mass/Vol] 6.6 g/dL Normal 6.4-8.3 [facility] Comment on above: Performed By: #### B MP, TROPI, CBC, TSH #### [facility] [address] [place], [place] [phone] Manager Content: Angelito Muir MD Sodium [Moles/Vol] 139 mmol/L Normal 135-144 [facility] Comment on above: Performed By: #### B MP, TROPI, CBC, TSH #### [facility] [address] [place] [address] Manager Content: Angelito Muir MD Urea nitrogen [Mass/Vol] 32 mg/dL High 8-23 [facility] Comment on above: Performed By: #### B MP, TROPI, CBC, TSH #### [facility] [address] [place] [address] Manager Content: Angelito Muir MD Comprehensive Metabolic Pane [facility] 10-23-2023 Albumin [Mass/Vol] 3.9 g/dL 3.5 - 5.2 g/dL [facility] ALP [Catalytic activity/Vol] 49 U/L 35 - 104 U/L [facility] ALT [Catalytic activity/Vol] 12 U/L 5 - 33 U/L [facility] Anion gap [Moles/Vol] 15 mmol/L 9 - 17 mmol/L [facility] AST [Catalytic activity/Vol] 15 U/L NINF - 32 U/L [facility] Bilirubin [Mass/Vol] 0.4 mg/dL 0.3 - 1 .2 mg/dL [facility] Calcium [Mass/Vol] 8.9 mg/dL 8.6 - 10. 4 mg/dL [facility] Chloride [Moles/Vol] 107 mmol/L 98 - 10 7 mmol/L [facility] CO2 [Moles/Vol] 17 mmol/L Low 20 - 31 mmol/L [facility] Creatinine [Mass/Vol] 1.1 mg/dL High 0.5 - 0.9 mg/dL [facility] GFR/1.73 sq M.predicted MDRD (S/P/Bld) [Vol rate/Area] 51 mL/min/{1.73_m2} Low - PINF [facility] Comment on above: These results are [...] mg/dL High 70 - 99 mg/dL [facility] Interpretation and review of laboratory results Abnormal [facility] Potassium [Moles/Vol] 3.6 mmol/L Low 3.7 - 5.3 mmol/L [facility] Protein [Mass/Vol] 6.6 g/dL 6.4 - 8.3 g/dL [facility] Sodium [Moles/Vol] 139 mmol/L 135 - 144 mmol/L [facility] Urea nitrogen [Mass/Vol] 32 mg/dL High 8 - 23 mg/dL [facility] Urea nitrogen/Creatinine [Mass ratio] 29 mg/mg High 9 - 20 [facility] Microscopic Urinalysison - [facility] Bacteria LM Ql (Urine sed) RARE Abnormal None [facility] Epithelial cells LM.HPF (Urine sed) [#/Area] 5 TO 10 /HPF [facility] Interpretation and review of laboratory results Abnormal [facility] RBC LM.HPF (Urine sed) [#/Area] 2 TO 5 [facility] WBC LM.HPF (Urine sed) [#/Area] NONE SEEN 0 /HPF [facility] Troponinon 10-23-2023 Interpretation and review of laboratory results Abnormal [facility] Troponin I.cardiac High sensitivity method [Mass/Vol] 19 ng/L High 0 - 14 ng/L [facility] Comment on above: High Sensitivity Tro ponin values cannot be compared with other Troponin methodologies. [facility] Troponin, High Sens 19 ng/L High 0-14 [facility] Comment on above: Result Comment: High Sensitivity Troponin values cannot be compared with other Troponin methodologies. Performed By: #### B MP, TROPI, CBC, TSH #### [facility] [address] [place], [place] [phone] Manager Content: Angelito Muir MD Interpretation and review of laboratory results Abnormal [facility] Troponin I.cardiac High sensitivity method [Mass/Vol] 15 ng/L High 0 - 14 ng/L [facility] Comment on above: High Sensitivity Tro ponin values cannot be compared with other Troponin methodologies. [facility] Troponin, High Sens 15 ng/L High 0-14 [facility] Comment on above: Result Comment: High Sensitivity Troponin values cannot be compared with other Troponin methodologies. Performed By: #### B MP, TROPI, CBC, TSH #### [facility] [address] [place], [place] [phone] Manager Content: Angelito Muir MD UA w/Reflex Cultureon 2023 Bilirubin, SemiQt,Ur Negative Normal NEG [facility] Comment on above: Performed By: #### B MP, TROPI, CBC, TSH #### [facility] [address] [place], [place] [phone] Manager Content: Angelito Muir MD Blood, Urine 2+ Abnormal NEG [facility] Comment on above: Performed By: #### B MP, TROPI, CBC, TSH #### [facility] [address] [place], [place] [phone] Manager Content: Angelito Muir MD Clarity (U) Clear Normal CLEAR [facility] Comment on above: Performed By: #### B MP, TROPI, CBC, TSH #### [facility] [address] [place] [address] Manager Content: Angelito Muir MD Color (U) Yellow Normal YEL [facility] Comment on above: Performed By: #### B MP, TROPI, CBC, TSH #### [facility] [address] [place] [address] Manager Content: Angelito Muir MD Comment Normal [facility] Comment on above: Performed By: #### B MP, TROPI, CBC, TSH #### [facility] [address] [place] [address] Manager Content: Angelito Muir MD Glucose Ql (U) Negative Normal NEG [facility] Comment on above: Performed By: #### B MP, TROPI, CBC, TSH #### [facility] [address] [place] [address] Manager Content: Angelito Muir MD Ketones Ql (U) TRACE Abnormal NEG [facility] Comment on above: Performed By: #### B MP, TROPI, CBC, TSH #### [facility] [address] [place] [address] Manager Content: Angelito Muir MD Leukocyte esterase Test strip Ql (U) Negative Normal NEG [facility] Comment on above: Performed By: #### B MP, TROPI, CBC, TSH #### [facility] [address] [place] [address] Manager Content: Angelito Muir MD Nitrite,Ur Negative Normal NEG [facility] Comment on above: Performed By: #### B MP, TROPI, CBC, TSH #### [facility] [address] [place] [address] Manager Content: Angelito Muir MD PH,Ur 5.0 Normal 5.0-8.0 [facility] Comment on above: Performed By: #### B MP, TROPI, CBC, TSH #### [facility] [address] [place] [address] Manager Content: Angelito Muir MD Protein Ql (U) 1+ mg/dL Abnormal NEG [facility] Comment on above: Performed By: #### B MP, TROPI, CBC, TSH #### [facility] [address] [place] [address] Manager Content: Angelito Muir MD Spec. Mystic,Ur 1.020 Normal 1.005-1.03 0 [facility] Comment on above: Performed By: #### B MP, TROPI, CBC, TSH #### [facility] [address] [place] [address] Manager Content: Angelito Muir MD Urobilinogen,Ur Normal Normal 0.0-1.0 [facility] Comment on above: Performed By: #### B MP, TROPI, CBC, TSH #### [facility] [address] [place] [address] Manager Content: Angelito Muir MD Urinalysis with Reflex to Cu ltureon 10-23-2023 Bilirubin Ql (U) Negative NEGATIVE [facility] Clarity (U) Clear Clear [facility] Color (U) Yellow Yellow [facility] Comment [facility] Glucose Test strip (U) [Mass/Vol] Negative NEGATIVE mg/dL [facility] Hemoglobin Auto test strip Ql (U) 2+ Abnormal NEGATIVE [facility] Interpretation and review of laboratory results Abnormal [facility] Ketones (U) [Mass/Vol] TRACE Abnormal NEGATIVE mg/dL [facility] Leukocyte esterase Test strip Ql (U) Negative NEGATIVE [facility] Nitrite Ql (U) Negative NEGATIVE [facility] pH (U) 5.0 [pH] 5.0 - 8.0 [facility] Protein (U) [Mass/Vol] 1+ Abnormal NEGATIVE mg/dL [facility] Specific gravity (U) [Rel density] 1.020 1.005 - 1.030 [facility] Urobilinogen Qn (U) Normal 0.0 - 1. 0 EU/dL [facility] Urinalysis,Microon 4 ----- Normal [facility] Comment on above: Performed By: #### B MP, TROPI, CBC, TSH #### [facility] [address] [place] [address] Manager Content: Angelito Muir MD Bacteria RARE Abnormal NONE [facility] Comment on above: Performed By: #### B MP, TROPI, CBC, TSH #### [facility] [address] [place] [address] Manager Content: Angelito Muir MD Epithelial cells LM Ql (Urine sed) 5 TO 10 Normal [facility] Comment on above: Performed By: #### B MP, TROPI, CBC, TSH #### [facility] [address] [place], [place] [phone] Manager Content: Angelito Muir MD Urine RBC's 2 TO 5 Normal 0-2 [facility] Comment on above: Performed By: #### B MP, TROPI, CBC, TSH #### [facility] [address] [place], [place] [phone] Manager Content: Angelito Muir MD Urine WBC's NONE SEEN Normal 0 [facility] Comment on above: Performed By: #### B MP, TROPI, CBC, TSH #### [facility] [address] [place], [place] [phone] Manager Content: Angelito Muir MD BUN + Creatinineon 4 Creatinine [Mass/Vol] 1.2 mg/dL High 0.5-0.9 [facility] Comment on above: Performed By: #### B UNCRT #### [facility] [address] [place] [address] Manager Content: Angelito Muir MD GFR/1.73 sq M.predicted among non-blacks MDRD (S/P/Bld) [Vol rate/Area] 46 mL/min/{1.73_m2} Low >60 [facility] Comment on above: Result Comment: [...] secretion. Performed By: #### B UNCRT #### [facility] [address] [place] [address] Manager Content: Angelito Muir MD Urea nitrogen [Mass/Vol] 35 mg/dL High 02-20 [facility] Comment on above: Performed By: #### B UNCRT #### [facility] [address] [place], [place] [phone] Manager Content: Angelito Muir MD CT UROGRAMon 10-22-2023 CT [...] Valentin Jr., MD 10/22/23 Final result Normal [facility] Cult,Urineon 10-02-2023 Cult,Urine Specimen Description .CLEAN CATCH [...] Tobramycin <=1 SUSCEPTIBLE Trimethoprim/Sulfa <=20 SUSCEPTIBLE Susceptible [facility] Comment on above: Performed By: #### B MP, TROPI, CBC, TSH #### [facility] [address] [place], [place] [phone] Manager Content: Angelito Muir MD Urinalysis w/ Microon 2023 ----- Normal [facility] Comment on above: Performed By: #### B MP, TROPI, CBC, TSH #### [facility] [address] [place], [place] [phone] Manager Content: Angelito Muir MD Bacteria 2+ Abnormal NONE [facility] Comment on above: Performed By: #### B MP, TROPI, CBC, TSH #### [facility] [address] [place] [address] Manager Content: Angelito Muir MD Bilirubin, SemiQt,Ur Negative Normal NEG [facility] Comment on above: Performed By: #### B MP, TROPI, CBC, TSH #### [facility] [address] [place] [address] Manager Content: Angelito Muir MD Blood, Urine 2+ Abnormal NEG [facility] Comment on above: Performed By: #### B MP, TROPI, CBC, TSH #### [facility] [address] [place] [address] Manager Content: Angelito Muir MD Clarity (U) Cloudy Abnormal CLEAR [facility] Comment on above: Performed By: #### B MP, TROPI, CBC, TSH #### [facility] [address] [place] [address] Manager Content: Angelito Muir MD Color (U) Yellow Normal YEL [facility] Comment on above: Performed By: #### B MP, TROPI, CBC, TSH #### [facility] [address] [place] [address] Manager Content: Angelito Muir MD Comment Normal [facility] Comment on above: Performed By: #### B MP, TROPI, CBC, TSH #### [facility] [address] [place] [address] Manager Content: Angelito Muir MD Epithelial cells LM Ql (Urine sed) 2 TO 5 Normal [facility] Comment on above: Performed By: #### B MP, TROPI, CBC, TSH #### [facility] [address] [place] [address] Manager Content: Angelito Muir MD Glucose Ql (U) Negative Normal NEG [facility] Comment on above: Performed By: #### B MP, TROPI, CBC, TSH #### [facility] [address] [place] [address] Manager Content: Angelito Muir MD Ketones Ql (U) Negative Normal NEG [facility] Comment on above: Performed By: #### B MP, TROPI, CBC, TSH #### [facility] [address] [place] [address] Manager Content: Angelito Muir MD Leukocyte esterase Test strip Ql (U) 3+ Abnormal NEG [facility] Comment on above: Performed By: #### B MP, TROPI, CBC, TSH #### [facility] [address] [place] [address] Manager Content: Angelito Muir MD Nitrite,Ur Negative Normal NEG [facility] Comment on above: Performed By: #### B MP, TROPI, CBC, TSH #### [facility] [address] [place] [address] Manager Content: Angelito Muir MD PH,Ur 6.5 Normal 5.0-8.0 [facility] Comment on above: Performed By: #### B MP, TROPI, CBC, TSH #### [facility] [address] [place] [address] Manager Content: Angelito Muir MD Protein Ql (U) TRACE Abnormal NEG [facility] Comment on above: Performed By: #### B MP, TROPI, CBC, TSH #### [facility] [address] [place] [address] Manager Content: Angelito Muir MD Spec. Mystic,Ur 1.010 Normal 1.005-1.03 0 [facility] Comment on above: Performed By: #### B MP, TROPI, CBC, TSH #### [facility] [address] [place] [phone] Manager Content: Angelito Muir MD Urine RBC's 10 TO 20 Normal 0-2 [facility] Comment on above: Performed By: #### B MP, TROPI, CBC, TSH #### [facility] [address] [place] [address] Manager Content: Angelito Muir MD Urine WBC's 20 TO 50 Normal 0 [facility] Comment on above: Performed By: #### B MP, TROPI, CBC, TSH #### [facility] [address] [place], [place] [phone] Manager Content: Angelito Muir MD Urobilinogen,Ur Normal Normal 0.0-1.0 [facility] Comment on above: Performed By: #### B MP, TROPI, CBC, TSH #### [facility] [address] [place] [address] Manager Content: Angelito Muir MD IntraOperative Documentson 0 09-23-2023 [employer] [id number] Normal [facility] Result Letter Officeon 09-22 Result Letter Office (Inserted Image. Un able to display) September 23, 2023 MARY JANE [address]OS [address] [place] [address] : 1945 Below is a summary of [...] if you wish to make an appointment. [facility] [phone] Normal [facility] Alanine aminotransferase [En zymatic activity/volume] in Serum or PlasmaOrdered By: Nuvia Sanchez on 09-19-2023 ALT [Catalytic activity/Vol] 12 U/L Normal 7-[address] [facility] Comment on above: Performed By: #### C 3, CH50, C4 #### [facility] , #### ESR, CMP, CBC, ADDONUAPLUS #### [facility] [address] [place] [address] [facility] Albumin [Mass/volume] in Ser um or Plasma by Bromocresol green (BCG) dye binding methoOrdered By: Nuvia Sanchez on 09-19-2023 Albumin BCG dye [Mass/Vol] 3.9 g/dL 3.5-5.[address] [facility] Alkaline phosphatase [Enzyma tic activity/volume] in Serum or PlasmaOrdered By: Nuvia Sanchez on 09-19-2023 ALP [Catalytic activity/Vol] 59 U/L Normal 34-[address] [facility] Comment on above: Result Comment: PERF ORMED BY: [place] [address] PATHOLOGIST [employer]ESSION[employer] MANUEL PABON M.D. Performed By: #### C 3, CH50, C4 #### [facility] , #### ESR, CMP, CBC, ADDONUAPLUS #### [address] Aspartate aminotransferase [ Enzymatic activity/volume] in Serum or PlasmaOrdered By: Nuvia Sanchez on 09-19-2023 AST [Catalytic activity/Vol] 13 U/L Normal 13-[address] [facility] Comment on above: Performed By: #### C 3, CH50, C4 #### [facility] , #### ESR, CMP, CBC, ADDONUAPLUS #### [address] Automated basophil %Ordered By: Nuvia Sanchez on 09-19-2023 Basophils/100 WBC (Bld) 0.3 % Normal . [facility] Comment on above: Performed By: #### C 3, CH50, C4 #### [facility] , #### ESR, CMP, CBC, ADDONUAPLUS #### [address] Automated basophil countOrde red By: Nuvia Sanchez on 09-19-2023 Basophils (Bld) [#/Vol] 0.0 10*3/uL Normal 0.0-0.[address] [facility] Comment on above: Performed By: #### C 3, CH50, C4 #### [facility] , #### ESR, CMP, CBC, ADDONUAPLUS #### [address] Automated blood monocyte cou ntOrdered By: Nuvia Sanchez on 09-19-2023 Monocytes (Bld) [#/Vol] 0.6 10*3/uL Normal 0.0-0.[address] [facility] Comment on above: Performed By: #### C 3, CH50, C4 #### [facility] , #### ESR, CMP, CBC, ADDONUAPLUS #### [address] Automated eosinophil %Ordere d By: Nuvia Sanchez on 09-19-2023 Eosinophils/100 WBC (Bld) 0.8 % Normal . [facility] Comment on above: Performed By: #### C 3, CH50, C4 #### [facility] , #### ESR, CMP, CBC, ADDONUAPLUS #### [address] Automated eosinophil countOr dered By: Nuvia Sanchez on 09-19-2023 Eosinophils (Bld) [#/Vol] 0.1 10*3/uL Normal 0.0-0.[address] [facility] Comment on above: Performed By: #### C 3, CH50, C4 #### [facility] , #### ESR, CMP, CBC, ADDONUAPLUS #### [address] Automated erythrocytes count in urine sediment (number/area)Ordered By: Nuvia Sanchez on 09-19-2023 RBC Auto (Urine sed) [#/Area] 0-1 [HPF] 0-[address] [facility] Automated leukocytes count i n urine sediment (number/area)Ordered By: Nuvia Sanchez on 09-19-2023 WBC Auto (Urine sed) [#/Area] None seen [HPF] 0-[address] [facility] Automated monocyte %Ordered By: Nuvia Sanchez on 09-19-2023 Monocytes/100 WBC (Bld) 6.5 % Normal . [facility] Comment on above: Performed By: #### C 3, CH50, C4 #### [facility] , #### ESR, CMP, CBC, ADDONUAPLUS #### [facility] [address] Automated neutrophil %Ordere d By: Nuvia Sanchez on 09-19-2023 Neutrophils/100 WBC (Bld) 74.2 % Normal . [facility] Comment on above: Performed By: #### C 3, CH50, C4 #### [facility] , #### ESR, CMP, CBC, ADDONUAPLUS #### [facility] [address] [place] [address] Automated urine color determ inationOrdered By: Nuvia Sanchez on 09-19-2023 Color (U) Yellow Normal Yellow [facility] Comment on above: Order Comment: Name Collection Type:: Clean-Voided Midstream Performed By: #### C 3, CH50, C4 #### [facility] , #### ESR, CMP, CBC, ADDONUAPLUS #### [facility] [address] [place] [address] Bilirubin Test strip Ql (U)O rdered By: Nuvia Sanchez on 09-19-2023 Bilirubin Ql (U) Negative Negative [facility] Bilirubin.total [Mass/volume ] in Serum or PlasmaOrdered By: Nuvia Sanchez on 09-19-2023 Bilirubin [Mass/Vol] 0.2 mg/dL Low 0.3-1.0 [facility] Comment on above: Performed By: #### C 3, CH50, C4 #### [facility] , #### ESR, CMP, CBC, ADDONUAPLUS #### [facility] [address] [place] [address] Calcium [Mass/volume] in Ser um or PlasmaOrdered By: Nuvia Sanchez on 09-19-2023 Calcium [Mass/Vol] 8.6 mg/dL Normal 8.6-10.3 [facility] Comment on above: Performed By: #### C 3, CH50, C4 #### [facility] , #### ESR, CMP, CBC, ADDONUAPLUS #### [facility] [address] [place] [address] Carbon dioxide, total [Moles /volume] in Serum or PlasmaOrdered By: Nuvia Sanchez on 09-19-2023 CO2 [Moles/Vol] 24.3 mmol/L Normal 21.0-31.0 [facility] Comment on above: Performed By: #### C 3, CH50, C4 #### [facility] , #### ESR, CMP, CBC, ADDONUAPLUS #### [address] Chloride [Moles/volume] in S liat or PlasmaOrdered By: Nuvia Sanchez on 09-19-2023 Chloride [Moles/Vol] 107 mmol/L Normal 98-107 [facility] Comment on above: Performed By: #### C 3, CH50, C4 #### [facility] , #### ESR, CMP, CBC, ADDONUAPLUS #### [facility] [address] [place] [address] [place] Complement C3on 09-19-2023 Complement C3 112 mg/dL Normal 82-167 [facility] Comment on above: Result Comment: Perf ormed at: - [facility] [address] [id number] Manager Content: Usman Draper PhD, Phone: [phone] Performed By: #### C 3, CH50, C4 #### [facility] , #### ESR, CMP, CBC, ADDONUAPLUS #### [facility] [address] [place] [address] [place] Complement C4on 09-19-2023 Complement C4 23 mg/dL Normal 12-38 [facility] Comment on above: Result Comment: PERF ORMED BY: [place] [address] PATHOLOGIST PROFESSIONAL NURSING TUTOR MANUEL PABON M.D. Performed By: #### C 3, CH50, C4 #### [facility] , #### ESR, CMP, CBC, ADDONUAPLUS #### [address] Complement Total (CH50)on Complement Total (CH50) 54 Normal >41 [facility] Comment on above: Result Comment: [...] out of range values. Performed at: - [facility] [id number] Manager Content: Usman Draper PhD, Phone: [phone] PERFORMED BY: [place] [address] PATHOLOGIST PROFESSIONAL NURSING TUTOR MANUEL PABON M.D. Performed By: #### C 3, CH50, C4 #### [facility] , #### ESR, CMP, CBC, ADDONUAPLUS #### [address] Complete Blood Count Auto Di ffon 09-19-2023 Mean Corpuscular HGB Conc 33.2 g/dL Normal 32.0-35.0 [facility] Comment on above: Performed By: #### C 3, CH50, C4 #### [facility] , #### ESR, CMP, CBC, ADDONUAPLUS #### [address] NRBC% 0.1 /100{WBC} Normal 0-0.5 [facility] Comment on above: Performed By: #### C 3, CH50, C4 #### [facility] , #### ESR, CMP, CBC, ADDONUAPLUS #### [facility] [address] [place] [address] Comprehensive Metabolic Pane trevor 09-19-2023 Albumin [Mass/Vol] 3.9 g/dL Normal 3.5-5.7 [facility] Comment on above: Performed By: #### C 3, CH50, C4 #### [facility] , #### ESR, CMP, CBC, ADDONUAPLUS #### [address] GFR/1.73 sq M.predicted MDRD (S/P/Bld) [Vol rate/Area] 40.226 mL/min/{1.73_m2} Normal [facility] Comment on above: Performed By: #### C 3, CH50, C4 #### [facility] , #### ESR, CMP, CBC, ADDONUAPLUS #### [address] Creatinine [Mass/volume] in Serum or PlasmaOrdered By: Nuvia Sanchez on 09-19-2023 Creatinine [Mass/Vol] 1.35 mg/dL High 0.60-1.20 [facility] Comment on above: Performed By: #### C 3, CH50, C4 #### [facility] , #### ESR, CMP, CBC, ADDONUAPLUS #### [address] Dipstick and Microscopicon 0 09-19-2023 Appearance (U) Clear Normal Clear [facility] Comment on above: Order Comment: Name Collection Type:: Clean-Voided Midstream Performed By: #### C 3, CH50, C4 #### [facility] , #### ESR, CMP, CBC, ADDONUAPLUS #### [address] Bacteria,Urine None Seen Normal None Seen [facility] Comment on above: Order Comment: Name Collection Type:: Clean-Voided Midstream Performed By: #### C 3, CH50, C4 #### [facility] , #### ESR, CMP, CBC, ADDONUAPLUS #### [address] Bilirubin,Urine Negative Normal Negative [facility] Comment on above: Order Comment: Name Collection Type:: Clean-Voided Midstream Performed By: #### C 3, CH50, C4 #### [facility] , #### ESR, CMP, CBC, ADDONUAPLUS #### [address] Glucose Ql (U) Normal Normal Normal [facility] Comment on above: Order Comment: Name Collection Type:: Clean-Voided Midstream Performed By: #### C 3, CH50, C4 #### [facility] , #### ESR, CMP, CBC, ADDONUAPLUS #### [address] Hyaline Casts,Urine 0-8 Normal 0-8 [facility] Comment on above: Order Comment: Name Collection Type:: Clean-Voided Midstream Result Comment: PERF ORMED BY: [place] [address] PATHOLOGIST PROFESSIONAL NURSING TUTOR MANUEL PABON M.D. Performed By: #### C 3, CH50, C4 #### [facility] , #### ESR, CMP, CBC, ADDONUAPLUS #### [address] Ketones Ql (U) Negative Normal Negative [facility] Comment on above: Order Comment: Name Collection Type:: Clean-Voided Midstream Performed By: #### C 3, CH50, C4 #### [facility] , #### ESR, CMP, CBC, ADDONUAPLUS #### [place] [id number] [place] Leukocyte esterase Test strip Ql (U) Negative Normal Negative [facility] Comment on above: Order Comment: Name Collection Type:: Clean-Voided Midstream Performed By: #### C 3, CH50, C4 #### [facility] , #### ESR, CMP, CBC, ADDONUAPLUS #### [address] Nitrite,Urine Negative Normal Negative [facility] Comment on above: Order Comment: Name Collection Type:: Clean-Voided Midstream Performed By: #### C 3, CH50, C4 #### [facility] , #### ESR, CMP, CBC, ADDONUAPLUS #### [address] Occult Blood,Urine Negative Normal Negative [facility] Comment on above: Order Comment: Name Collection Type:: Clean-Voided Midstream Performed By: #### C 3, CH50, C4 #### [facility] , #### ESR, CMP, CBC, ADDONUAPLUS #### [place] [address] [place] Protein,Urine Negative Normal Negative [facility] Comment on above: Order Comment: Name Collection Type:: Clean-Voided Midstream Performed By: #### C 3, CH50, C4 #### [facility] , #### ESR, CMP, CBC, ADDONUAPLUS #### [address] RBC LM.HPF (Urine sed) [#/Area] 0 /[HPF] Normal 0-4 [facility] Comment on above: Order Comment: Name Collection Type:: Clean-Voided Midstream Performed By: #### C 3, CH50, C4 #### [facility] , #### ESR, CMP, CBC, ADDONUAPLUS #### [place] [address] [place] Specificy Mystic,Urine 1.011 Normal 1.001-1.03 0 [facility] Comment on above: Order Comment: Name Collection Type:: Clean-Voided Midstream Performed By: #### C 3, CH50, C4 #### [facility] , #### ESR, CMP, CBC, ADDONUAPLUS #### [address] Squamous Epithelial Cell,Urine None Seen Normal 0-2 [facility] Comment on above: Order Comment: Name Collection Type:: Clean-Voided Midstream Performed By: #### C 3, CH50, C4 #### [facility] , #### ESR, CMP, CBC, ADDONUAPLUS #### [address] Urobilinogen,Urine Normal Normal Normal [facility] Comment on above: Order Comment: Name Collection Type:: Clean-Voided Midstream Performed By: #### C 3, CH50, C4 #### [facility] , #### ESR, CMP, CBC, ADDONUAPLUS #### [address] WBC,Urine None Seen Normal 0-4 [facility] Comment on above: Order Comment: Name Collection Type:: Clean-Voided Midstream Performed By: #### C 3, CH50, C4 #### [facility] , #### ESR, CMP, CBC, ADDONUAPLUS #### [address] Erythrocyte Sedimentation Ra heather 09-19-2023 ESR (Bld) [Velocity] 15 mm/h Normal 0-29 [facility] Comment on above: Result Comment: PERF ORMED BY: [place] [address] PATHOLOGIST PROFESSIONAL NURSING TUTOR MANUEL PABON M.D. Performed By: #### C 3, CH50, C4 #### [facility] , #### ESR, CMP, CBC, ADDONUAPLUS #### [facility] [address] Erythrocyte distribution wid th [Ratio] by Automated countOrdered By: Nuvia Sanchez on 09-19-2023 Erythrocyte distribution width (RBC) [Ratio] 15.2 % Normal 11.9-15.[address] [facility] Comment on above: Performed By: #### C 3, CH50, C4 #### [facility] , #### ESR, CMP, CBC, ADDONUAPLUS #### [facility] [address] Erythrocyte sedimentation ra te by Photometric methodOrdered By: Nuvia Sanchez on 09-19-2023 ESR Photometric method (Bld) [Velocity] 15 mm/hr 0-[address] [facility] Erythrocytes [#/volume] in B lood by Automated countOrdered By: Nuvia Sanchez on 09-19-2023 RBC (Bld) [#/Vol] 3.76 10*6/uL Normal 3.60-5.[address] [facility] Comment on above: Performed By: #### C 3, CH50, C4 #### [facility] , #### ESR, CMP, CBC, ADDONUAPLUS #### [address] Glucose [Mass/volume] in Ser um or PlasmaOrdered By: Nuvia Sanchez on 09-19-2023 Glucose [Mass/Vol] 84 mg/dL Normal 70-100 [facility] Comment on above: ADA recommended refe rence rangeRandom Glucose Reference Range is dependent on time and content of last meal. Glucose of more than 200 mg/dL in a nonstressed, ambulatory subject supports the diagnosis of Diabetes Mellitus. Result Comment: [place] om Glucose Reference Range is dependent on time and content of last meal. Glucose of more than 200 mg/dL in a nonstressed, ambulatory subject supports the diagnosis of Diabetes Mellitus. ADA recommended reference range Performed By: #### C 3, CH50, C4 #### [facility] , #### ESR, CMP, CBC, ADDONUAPLUS #### [facility] [address] [place] [address] [place] Hematocrit [Volume Fraction] of Blood by Automated countOrdered By: Nuvia Sanchez on 09-19-2023 Hematocrit (Bld) [Volume fraction] 34.5 % Normal 34.0-46.[address] [facility] Comment on above: Performed By: #### C 3, CH50, C4 #### [facility] , #### ESR, CMP, CBC, ADDONUAPLUS #### [facility] [address] Hemoglobin [Mass/volume] in BloodOrdered By: Nuvia Sanchez on 09-19-2023 Hemoglobin (Bld) [Mass/Vol] 11.4 g/dL Low 11.8-15.[address] [facility] Comment on above: Performed By: #### C 3, CH50, C4 #### [facility] , #### ESR, CMP, CBC, ADDONUAPLUS #### [facility] [address] [place] [address] Ketones Auto test strip (U) [Mass/Vol]Ordered By: Nuvia Sanchez on 09-19-2023 Ketones (U) [Mass/Vol] Negative Negative [facility] - UrinalysisOrder ed By: Nuvia Sanchez on 09-19-2023 Hyaline casts LM Ql (Urine sed) 0-8 [LPF] 0-[address] [facility] Leukocytes [#/volume] correc pepito for nucleated erythrocytes in Blood by Automated counOrdered By: Nuvia Sanchez on 09-19-2023 WBC corrected for nucl RBC Auto (Bld) [#/Vol] 8.9 10*3/uL 3.8-11.[address] [facility] Leukocytes [#/volume] in Blo od by Automated countOrdered By: Nuvia Sanchez on 09-19-2023 WBC (Bld) [#/Vol] 8.9 10*3/uL Normal 3.8-11.6 [facility] Comment on above: Performed By: #### C 3, CH50, C4 #### [facility] , #### ESR, CMP, CBC, ADDONUAPLUS #### [address] Lymphocytes [#/volume] in Bl ood by Automated countOrdered By: Nuvia Sanchez on 09-19-2023 Lymphocytes (Bld) [#/Vol] 1.6 10*3/uL Normal 1.00-4.[address] [facility] Comment on above: Performed By: #### C 3, CH50, C4 #### [facility] , #### ESR, CMP, CBC, ADDONUAPLUS #### [address] Lymphocytes/100 leukocytes i n Blood by Automated countOrdered By: Nuvia Sanchez on 09-19-2023 Lymphocytes/100 WBC (Bld) 18.2 % Normal . [facility] Comment on above: Performed By: #### C 3, CH50, C4 #### [facility] , #### ESR, CMP, CBC, ADDONUAPLUS #### [address] MCH [Entitic mass] by Automa pepito countOrdered By: Nuvia Sanchez on 09-19-2023 MCH (RBC) [Entitic mass] 30.4 pg Normal 24.7-34.[address] [facility] Comment on above: Performed By: #### C 3, CH50, C4 #### [facility] , #### ESR, CMP, CBC, ADDONUAPLUS #### [address] MCHC Auto (RBC) [Mass/Vol]Or dered By: Nuvia Sanchez on 09-19-2023 MCHC (RBC) [Mass/Vol] 33.2 g/dL 32.0-35.0 [facility] MCV [Entitic volume] by Auto mated countOrdered By: Nuvia Sanchez on 09-19-2023 MCV (RBC) [Entitic vol] 91.6 fL Normal 80-[address] [facility] Comment on above: Performed By: #### C 3, CH50, C4 #### [facility] , #### ESR, CMP, CBC, ADDONUAPLUS #### [address] Neutrophils [#/volume] in Bl ood by Automated countOrdered By: Nuvia Sanchez on 09-19-2023 Neutrophils (Bld) [#/Vol] 6.6 10*3/uL Normal 1.8-7.[address] [facility] Comment on above: Performed By: #### C 3, CH50, C4 #### [facility] , #### ESR, CMP, CBC, ADDONUAPLUS #### [address] Nitrite Test strip Ql (U)Ord ered By: Nuvia Sanchez on 09-19-2023 Nitrite Ql (U) Negative Negative [facility] No Panel InformationOrdered By: Nuvia Sanchez on 09-19-2023 Estimated GFR (CKD-EPI) 40.226 mL/Min [facility] Creatinine Clearance (Chem N/A [facility] Nucleated erythrocytes [Pres ence] in Blood by Automated countOrdered By: Nuvia Sanchez on 09-19-2023 Nucleated RBC Auto Ql (Bld) 0.1 /100{WBC} 0-0.[address] [facility] Platelet mean volume [Entiti c volume] in Blood by Automated countOrdered By: Nuvia Sanchez on 09-19-2023 Platelet mean volume (Bld) [Entitic vol] 8.6 fL Normal 6.3-10.[address] [facility] Comment on above: Performed By: #### C 3, CH50, C4 #### [facility] , #### ESR, CMP, CBC, ADDONUAPLUS #### [address] Platelets [#/volume] in Bloo d by Automated countOrdered By: Nuvia Sanchez on 09-19-2023 Platelets (Bld) [#/Vol] 214 10*3/uL Normal 150-[address] [facility] Comment on above: Performed By: #### C 3, CH50, C4 #### [facility] , #### ESR, CMP, CBC, ADDONUAPLUS #### [facility] [address] Potassium [Moles/volume] in Serum or PlasmaOrdered By: Nuvia Sanchez on 09-19-2023 Potassium [Moles/Vol] 4.2 mmol/L Normal 3.5-5.1 [facility] Comment on above: Performed By: #### C 3, CH50, C4 #### [facility] , #### ESR, CMP, CBC, ADDONUAPLUS #### [facility] [address] [place] [address] Protein Auto test strip (U) [Mass/Vol]Ordered By: Nuvia Sanchez on 09-19-2023 Protein (U) [Mass/Vol] Negative Negative [facility] Protein [Mass/volume] in Ser um or PlasmaOrdered By: Nuvia Sanchez on 09-19-2023 Protein [Mass/Vol] 6.1 g/dL Low 6.4-8.9 [facility] Comment on above: Performed By: #### C 3, CH50, C4 #### [facility] , #### ESR, CMP, CBC, ADDONUAPLUS #### [facility] [address] [place] [address] Serum globulin measurement b y calculation (mass/volume)Ordered By: Nuvia Sanchez on 09-19-2023 Globulin (S) [Mass/Vol] 2.2 g/dL Normal [facility] Comment on above: Performed By: #### C 3, CH50, C4 #### [facility] , #### ESR, CMP, CBC, ADDONUAPLUS #### [address] Serum or plasma albumin/glob ulin mass ratioOrdered By: Nuvia Sanchez on 09-19-2023 Albumin/Globulin [Mass ratio] 1.8 {ratio} Normal [facility] Comment on above: Performed By: #### C 3, CH50, C4 #### [facility] , #### ESR, CMP, CBC, ADDONUAPLUS #### [address] Serum or plasma anion gap de terminationOrdered By: Nuvia Sanchez on 09-19-2023 Anion gap [Moles/Vol] 9.9 mmol/L Normal 6.0-15.0 [facility] Comment on above: Performed By: #### C 3, CH50, C4 #### [facility] , #### ESR, CMP, CBC, ADDONUAPLUS #### [address] Sodium [Moles/volume] in Ser um or PlasmaOrdered By: Nuvia Sanchez on 09-19-2023 Sodium [Moles/Vol] 137 mmol/L Normal 136-145 [facility] Comment on above: Performed By: #### C 3, CH50, C4 #### [facility] , #### ESR, CMP, CBC, ADDONUAPLUS #### [address] Specific gravity Auto test s trip (U) [Rel density]Ordered By: Nuvia Sanchez on 09-19-2023 Specific gravity (U) [Rel density] 1.011 1.001-1.[address] [facility] Squamous epithelial cells de tection in urine sediment by light microscopyOrdered By: Nuvia Sanchez on 09-19-2023 Epithelial cells.squamous LM Ql (Urine sed) None seen [HPF] 0-[address] [facility] Urea nitrogen [Mass/volume] in Serum or PlasmaOrdered By: Nuvia Sanchez on 09-19-2023 Urea nitrogen [Mass/Vol] 32 mg/dL High 7-[address] [facility] Comment on above: Performed By: #### C 3, CH50, C4 #### [facility] , #### ESR, CMP, CBC, ADDONUAPLUS #### [facility] [address] [place] [address] [place] Urine bacteria detection by automated methodOrdered By: Nuvia Sanchez on 09-19-2023 Bacteria Auto Ql (U) None seen None Seen [facility] Urine clarity by refractomet ry automatedOrdered By: Nuvia Sanchez on 09-19-2023 Clarity Refractometry automated (U) Clear Clear [facility] Urine glucose measurement by automated test strip (mass/volume)Ordered By: Nuvia Sanchez on 09-19-2023 Glucose Auto test strip (U) [Mass/Vol] Normal mg/dL Normal [facility] Urine hemoglobin detection b y automated test stripOrdered By: Nuvia Sanchez on 09-19-2023 Hemoglobin Auto test strip Ql (U) Negative Negative [facility] Urine leukocyte esterase det ection by automated test stripOrdered By: Nuvia Sanchez on 09-19-2023 Leukocyte esterase Auto test strip Ql (U) Negative Negative [facility] Urine pH measurement by auto mated test stripOrdered By: Nuvia Sanchez on 09-19-2023 pH (U) 6.0 [pH] Normal 5.0-9.[address] [facility] Comment on above: Order Comment: Name Collection Type:: Clean-Voided Midstream Performed By: #### C 3, CH50, C4 #### [facility] , #### ESR, CMP, CBC, ADDONUAPLUS #### [facility] [address] [place] [address] [place] Urobilinogen Auto test strip (U) [Mass/Vol]Ordered By: Nuvia Sanchez on 09-19-2023 Urobilinogen (U) [Mass/Vol] Normal mg/dL Normal [facility] Consenton 09-17-2023 Consent [id number] Normal [facility] Discharge Instructionson Discharge Instructions [id number] Normal [facility] Main OR Intraoperative Recor don 09-17-2023 Main OR Intraoperative Record IntraOp Document Type FT Summary Primary Physician: Davion Olivares MD Finalized Date/Time: 09/17/23 08:19:33 Pt. Name: MARY JANE RIOS Ora Simental/Sex: 1945 Female Med Rec #: [id number] Physician: Davion Olivares MD Financial #: [id number] Pt. Type: O Room/Bed: / Admit/Disch: 09/16/23 12:59:51 - 09/16/23 23:59:59 Institution: Case Times FT Entry 1 Patient Times In Room 09/16/23 14:15:00 Out Room 09/16/23 14:42:00 Procedure Times Start 09/16/23 14:20:00 Stop 09/16/23 14:39:00 Anesthesia Times Start 09/16/23 14:15:00 Stop 09/16/23 14:42:00 Time at [facility] 09/16/23 14:23:00 Last Modified By: Janell Beaver RN 09/16/23 14:41:11 General Comments: 09/17/23 Chart opened to review and send charges [facility]FA Case Attendance FT Entry 1 Entry 2 Entry 3 Case Attendee Jon SARKAR, Michi Beaver RN, Yong Fang Role Performed Anesthesiologist Drive [employer] Repairer - Primary Scrub - Primary Sales Representative Meats Time In 09/16/23 14:15:00 09/16/23 14:15:00 09/16/23 14:15:00 Time Out 09/16/23 14:42:00 09/16/23 14:42:00 09/16/23 14:42:00 Procedure COLONOSCOPY(.) COLONOSCOPY(.) COLONOSCOPY(.) Comments Dr. Delgado supervising case Last Modified By: Sd CAICEDO, Janell Beaver RN, Janell Beaver RN, Janell Reeves 09/16/23 14:41:12 F 09/16/23 14:41:12 F 09/16/23 14:41:12 Entry 4 Entry 5 Case Attendee Alexa GUAN, Daisy Olivares MD, Davion Zaraet Role Performed Staff - Other Surgeon - [...] x3. Primary Procedure Yes Primary Surgeon Marshall STEINERDavion Start 09/16/23 14:20:00 Stop 09/16/23 14:39:00 Anesthesia [...] and tissue Entry 1 Skin Integrity Intact, [place], Warm, and Skin Abnormality No Dry Outcomes Met? Yes Last Modified By: Janell Beaver RN 09/16/23 14:23:55 Post-Care Text: The patient is free from signs and symptoms of injury caused by extraneous objects Patient Positioning FT Pre-Care Text: Identifies physical alterations that require additional precautions for procedure-specific positioning, verifies presence of prosthe (more content not included)... [facility] Postoperative Documentson Postoperative Documents [id number]#[id number] [facility] Consent for Treatmenton 08-29 Consent for Treatment [id number]#[id number] [facility] Discharge Instructionson Discharge Instructions MARY JANE [...] tablet) fluticasone nasal (fluticasone 0.05 mg/inh Nasal Jolon) levothyroxine (levothyroxine 50 mcg (0.05 mg) Tab) [...] Persistent or heavy bleeding Pharmacy Information [facility] Discharge Instructions Discharge Instructions New Follow Up Appointments after Discharge Follow Up with Davion Olivares When: Comments: office will call for follow up Where: [address] [place] [address] [place], [address] [address] [phone] Business (1) Medications What How Much When Instructions Next Dose Changed famotidine 20 Milligram By Mouth Once a day (at bedtime) Changed famotidine (famotidine 40 mg Tab) 1 Tablets By Mouth Once a day (at bedtime) Pickup at [id number] Unchanged alprazolam 0.5 Milligram By Mouth At [...] fluticasone nasal (fluticasone 0.05 mg/ inh Nasal Jolon) 50 Microgram Nasal Inhalation Every day Unchanged [...] Pharmacy Information (more content not included)... Normal [facility] Comment on above: Result Comment: Elec tronically Signed By: Winnie CAICEDO, Miley\\.br\\Date and Time Signed: 09/16/23 15:00 EDT Endoscopic [...] hours. Education and Follow-up: Counseled: Patient, Family. Normal [facility] Comment on above: Result Comment: Elec tronically Signed By: Marshall STEINER, Davion Zarate\\.br\\Date and Time Signed: 09/16/23 14:42 EDT Other Comment: Rachel ng Attachment - attachment storage system not supported [id number] Can be viewed in source system Missing Attachment - attachment storage system not supported [id number] Can be viewed in source system Missing Attachment - attachment storage system not supported [id number] Can be viewed in source system Missing Attachment - attachment storage system not supported [id number] Can be viewed in source system Missing Attachment - attachment storage system not supported [id number] Can be viewed in source system Missing Attachment - attachment storage system not supported [id number] Can be viewed in source system Missing Attachment - attachment storage system not supported [id number] Can be viewed in source system Missing Attachment - attachment storage system not supported [id number] Can be viewed in source system Missing Attachment - attachment storage system not supported [id number] Can be viewed in source system Missing Attachment - attachment storage system not supported [id number] Can be viewed in source system Missing Attachment - attachment storage system not supported [id number] Can be viewed in source system Missing Attachment - attachment storage system not supported [id number] Can be viewed in source system Gastroenterology [...] EVIDENT. ? NO INTESTINAL METAPLASIA IDENTIFIED. Colonoscopy 8/16/21: 2 TA's. Recommended a repeat in 2023. [...] Historical Co (more content not included)... Normal [facility] Comment on above: Result Comment: Elec tronically Signed By: Davion Olivares MD\\.br\\Date and Time Signed: 09/16/23 14:16 EDT Inpatient Patient Summaryon 09-16-2023 Inpatient Patient Summary [address] [facility] Clinical Discharge Instructions PERSON INFORMATION Name: MARY JANE RIOS PHYSICIANS Admitting Physician: Davion Olivares MD Attending Physician: Davion Olivares MD PCP: NABILA STEINER, RONI Ortiz Discharge Diagnosis: Colon polyps Comment: PATIENT EDUCATION INFORMATION Instructions: Medication Leaflets: Follow up: MEDICATION LIST Medications to Continue Taking That Have Changed [id number], [address], [place] [id number], [phone] START: famotidine (famotidine 40 mg Tab) 1 [...] day. fluticasone nasal (fluticasone 0.05 mg/inh Nasal Jolon) 50 Microgram Nasal Inhalation every day. levothyroxine [...] Milligram By Mouth every day. Comment: Home [facility] Main OR PACU I Recordon 08-29 Main OR PACU I Record PACU Phase I Docum ent Type FT Summary Primary Physician: Davion Olivares MD Finalized Date/Time: 09/16/23 16:43:13 Pt. Name: MARY JANE RIOS /Sex: 1945 Female Med Rec #: [id number] Physician: Davion Olivares MD Financial #: [id number] Pt. Type: O Room/Bed: / Admit/Disch: 09/16/23 [...] By: Miley Zhou RN 09/16/23 16:43 Normal [facility] Main OR Preoperative Recordo n 09-16-2023 Main OR Preoperative Record Holding Area Document Type FT Summary Primary Physician: Davion Olivares MD Finalized Date/Time: 09/16/23 13:10:36 Pt. Name: BETTY RIOSJEAN Payan D.O.B./Sex: 1945 Female Med Rec #: [id number] Physician: Davion Olivares MD Financial #: [id number] Pt. Type: O Room/Bed: / Admit/Disch: 09/16/23 [...] completed prep at 0700 and remained NPO since/YUNIERRN Finalized By: Eliza Lyn RN Document Signatures Signed By: Eliza Lyn RN 09/16/23 13:10 Normal [facility] Monitor Recordon 09-16-2023 Monitor Record [id number] Normal [facility] Monitor Record [id number] Normal [facility] Outpatient Surgery Discharge Instructionon 09-16-2023 Outpatient Surgery Discharge Instruction [place] [id number] Patient Discharge Instructions PERSON INFORMATION Name: MARY [...] THE NEAREST EMERGENCY ROOM OR CALL 911 I, MARY JANE RIOS, have received the attached patient education materials/instructions [...] to serve you. Thank you for choosing [facility] HERE ARE THE MEDICATION CHANGES THAT OCCURRED DURING YOUR HOSPITAL STAY Medications to Continue Taking That Have Changed [id number], [address], [place] [id number], [phone] START: famotidine (famotidine 40 mg Tab) 1 [...] day. fluticasone nasal (fluticasone 0.05 mg/inh Nasal Jolon) 50 Microgram Nasal Inhalation every day. levothyroxine [...] day. PATIENT EDUCATION INFORMATION Instructions: Medication Leaflets: [facility] Patient Education - Texton 0 09-16-2023 Patient Education - Text [facility] Progress Note-Physicianon Progress Note-Physician Patient: MARY JANE RIOS Age: 77 years Sex: Female : 1945 Associated Diagnoses: None Author: Danny Anesthesiology (), Obie Tyler Postoperative Information Postoperative disposition: Postoperative [...] # 90 tab(s), Refills(s) 6, Pharmacy: [facility] #[id number], 162, cm, 09/16/23 10:47:00 EDT, Height/Length Dosing, [...] of stomach acid fluticasone 0.05 mg/inh Nasal Jolon: 50 mcg, Nasal, Daily, Refill(s) 0, Allergy [...] day (at bedtime) fluticasone 0.05 mg/inh Nasal Jolon 50 mcg, Nasal, Daily levothyroxine 50 mcg [...] All Problems Acid reflux / SNOMED CT 669110310 / Confirmed Anticoagulated / SNOMED CT 340280802 / Confirmed Asymptomatic microscopic hematuria / SNOMED CT 2525339189 / Confirmed Chronic back pain / SNOMED CT 437210658 / Confirmed Epigastric pain / SNOMED CT 065885833 / Confirmed H/O: arthritis / SNOMED CT 233033862 / Confirmed History of colon polyps / SNOMED CT 2132765007 / Confirmed Hypercholesterolemia / SNOMED CT 90390762 / Confirmed Hypothyroidism / SNOMED CT 56560017 / Confirmed Internal hemorrhoids / SNOMED CT 478592912 / Confirmed Intestinal metaplasia of stomach / SNOMED CT 597830223 / Confirmed Low vitamin B12 level / SNOMED CT 6052548154 / Confirmed Mixed incontinence / SNOMED CT 97937199 / Confirmed Mixed stress and urge urinary incontinence / SNOMED CT 2376488715 / Confirmed Nocturia / SNOMED CT 961943732 / Confirmed Obesity / ICD-9-CM 278.00 / Possible Shoulder strain / SNOMED CT 124976928 / Confirmed Sleep apnea / SNOMED CT 909289502 / Confirmed USES CPAP Stress incontinence / SNOMED CT 411354083 / Confirmed TMJ (temporomandibular joint disorder) / SNOMED CT 81551602 / Confirmed Urge incontinence / SNOMED CT 815297599 / Confirmed Weak urinary stream / SNOMED CT 886410637 / Confirmed Resolved: Constipation / SNOMED CT 94592391 Resolved: Diverticulosis / SNOMED CT 2250514231 Resolved: Frequency of urination / SNOMED CT 160401573 Resolved: Gastritis / SNOMED CT 9618798 Resolved: Hx of post-iza (more content not included)... Normal [facility] Comment on above: Result Comment: Elec tronically Signed By: Danny MORE)Obie\\.br\\Date and Time Signed: 09/16/23 14:59 EDT Progress [...] of stomach acid fluticasone 0.05 mg/inh Nasal Jolon: 50 mcg, Nasal, Daily, Refill(s) 0, Allergy [...] day (at bedtime) fluticasone 0.05 mg/inh Nasal Jolon 50 mcg, Nasal, Daily levothyroxine 50 mcg [...] All Problems Acid reflux / SNOMED CT 097479970 / Confirmed Anticoagulated / SNOMED CT 593803478 / Confirmed Asymptomatic microscopic hematuria / SNOMED CT 3614866193 / Confirmed Chronic back pain / SNOMED CT 638831058 / Confirmed Epigastric pain / SNOMED CT 403854855 / Confirmed H/O: arthritis / SNOMED CT 560914555 / Confirmed History of colon polyps / SNOMED CT 8212446577 / Confirmed Hypercholesterolemia / SNOMED CT 27565283 / Confirmed Hypothyroidism / SNOMED CT 70521615 / Confirmed Internal hemorrhoids / SNOMED CT 640485992 / Confirmed Intestinal metaplasia of stomach / SNOMED CT 067865750 / Confirmed Low vitamin B12 level / SNOMED CT 0186765450 / Confirmed Mixed incontinence / SNOMED CT 76736782 / Confirmed Mixed stress and urge urinary incontinence / SNOMED CT 1483070628 / Confirmed Nocturia / SNOMED CT 626940633 / Confirmed Obesity / ICD-9-CM 278.00 / Possible Shoulder strain / SNOMED CT 117917567 / Confirmed Sleep apnea / SNOMED CT 942451296 / Confirmed USES CPAP Stress incontinence / SNOMED CT 098681543 / Confirmed TMJ (temporomandibular joint disorder) / SNOMED CT 57362408 / Confirmed Urge incontinence / SNOMED CT 842999492 / Confirmed (more content not included)... Normal [facility] Comment on above: Result Comment: Elec tronically Signed By: Danny Anesthesiology (), Obie Bestbr\\Date and Time Signed: 09/16/23 13:35 EDT CBC with Diffon 08-20-2023 Abs. Basophil 0.01 k/uL Normal 0.00-0.20 [facility] Comment on above: Performed By: #### T SHX, ZFAST, CP, MG, CDP #### [facility] [address] [place] [address] Manager Content: Angelito Muir MD #### LIPR #### [place] [address] Manager Content: Ambrose Moura MD Abs.Imm.Granulocyte 0.04 k/uL Normal 0.00-0.30 [facility] Comment on above: Performed By: #### T ALEJANDRINA, ZFAST, CP, MG, CDP #### [facility] [address] [place] [address] Manager Content: Angelito Muir MD #### LIPR #### [place] [address] Manager Content: Ambrose Moura MD Abs.Neutrophil (Seg) 1.95 k/uL Low 2.5-7.0 [facility] Comment on above: Performed By: #### T SHX, ZFAST, CP, MG, CDP #### [facility] [address] [place] [address] Manager Content: Angelito Muir MD #### LIPR #### [place] [address] Manager Content: Ambrose Moura MD Basophils/100 WBC (Bld) 0 % Normal 0-2 [facility] Comment on above: Performed By: #### T SHX, ZFAST, CP, MG, CDP #### [facility] [address] [place], [place] [phone] Manager Content: Angelito Muir MD #### LIPR #### [address] [phone] Manager Content: Ambrose Moura MD Eosinophils (Bld) [#/Vol] 0.09 10*3/uL Normal 0.00-0.40 [facility] Comment on above: Performed By: #### T SHX, ZFAST, CP, MG, CDP #### [facility] [address] [place] [phone] Manager Content: Angelito Muir MD #### LIPR #### [place] [phone] Manager Content: Ambrose Moura MD Eosinophils/100 WBC (Bld) 3 % Normal 0-5 [facility] Comment on above: Performed By: #### T SHX, ZFAST, CP, MG, CDP #### [facility] [address] [place] [phone] Manager Content: Angelito Muir MD #### LIPR #### [address] [phone] Manager Content: Ambrose Moura MD Erythrocyte distribution width (RBC) [Ratio] 13.8 % Normal 12.1-15.2 [facility] Comment on above: Performed By: #### T SHX, ZFAST, CP, MG, CDP #### [facility] [address] [place] [phone] Manager Content: Angelito Muir MD #### LIPR #### [address] [phone] Manager Content: Ambrose Moura MD Hematocrit (Bld) [Volume fraction] 34.7 % Low 36.0-46.0 [facility] Comment on above: Performed By: #### T SHX, ZFAST, CP, MG, CDP #### [facility] [address] [place], [place] [phone] Manager Content: Angelito Muir MD #### LIPR #### [address] [phone] Manager Content: Ambrose Moura MD Hemoglobin (Bld) [Mass/Vol] 11.4 g/dL Low 12.0-16.0 [facility] Comment on above: Performed By: #### T SHX, ZFAST, CP, MG, CDP #### [facility] [address] [place], [place] [phone] Manager Content: Angelito Muir MD #### LIPR #### [address] [phone] Manager Content: Ambrose Moura MD Immature granulocytes/100 WBC (Bld) 1 % Normal 0-5 [facility] Comment on above: Performed By: #### T SHX, ZFAST, CP, MG, CDP #### [facility] [address] [place], [place] [id number] Manager Content: Angelito Muir MD #### LIPR #### [address] [address] Manager Content: Ambrose Moura MD Lymphocytes (Bld) [#/Vol] 1.02 10*3/uL Normal 1.00-4.80 [facility] Comment on above: Performed By: #### T SHX, ZFAST, CP, MG, CDP #### [facility] [address] [place], [place] [phone] Manager Content: Angelito Muir MD #### LIPR #### [address] [phone] Manager Content: Ambrose Moura MD Lymphocytes/100 WBC (Bld) 30 % Normal 15-40 [facility] Comment on above: Performed By: #### T SHX, ZFAST, CP, MG, CDP #### [facility] [address] [place], [place] [phone] Manager Content: Angelito Muir MD #### LIPR #### [address] [phone] Manager Content: Ambrose Moura MD MCH (RBC) [Entitic mass] 30.9 pg Normal 26.0-34.0 [facility] Comment on above: Performed By: #### T SHX, ZFAST, CP, MG, CDP #### [facility] [address] [place] [phone] Manager Content: Angelito Muir MD #### LIPR #### [address] [phone] Manager Content: Ambrose Moura MD MCHC (RBC) [Mass/Vol] 32.9 g/dL Normal 31.0-37.0 [facility] Comment on above: Performed By: #### T SHX, ZFAST, CP, MG, CDP #### [facility] [address] [place] [phone] Manager Content: Angelito Muir MD #### LIPR #### [address] [phone] Manager Content: Ambrose Moura MD MCV (RBC) [Entitic vol] 94.0 fL Normal 80.0-100.0 [facility] Comment on above: Performed By: #### T SHX, ZFAST, CP, MG, CDP #### [facility] [address] [place] [phone] Manager Content: Angelito Muir MD #### LIPR #### [place] [address] [place], [place] [phone] Manager Content: Ambrose Moura MD Monocytes (Bld) [#/Vol] 0.34 10*3/uL Normal 0.00-1.00 [facility] Comment on above: Performed By: #### T SHX, ZFAST, CP, MG, CDP #### [facility] [address] [place], [place] [phone] Manager Content: Angelito Muir MD #### LIPR #### [address] [phone] Manager Content: Ambrose Moura MD Monocytes/100 WBC (Bld) 10 % High 4-8 [facility] Comment on above: Performed By: #### T SHX, ZFAST, CP, MG, CDP #### [facility] [address] [place] [address] Manager Content: Angelito Muir MD #### LIPR #### [address] [phone] Manager Content: Ambrose Moura MD Neutrophil (Seg) 56 % Normal 47-75 [facility] Comment on above: Performed By: #### T SHX, ZFAST, CP, MG, CDP #### [facility] [address] [place] [address] Manager Content: Angelito Muir MD #### LIPR #### [address] [phone] Manager Content: Ambrose Moura MD Platelet mean volume (Bld) [Entitic vol] 9.8 fL Normal 6.0-12.0 [facility] Comment on above: Performed By: #### T SHX, ZFAST, CP, MG, CDP #### [facility] [address] [place] [address] Manager Content: Angelito Muir MD #### LIPR #### [place] [address] [place], [place] [phone] Manager Content: Ambrose Moura MD Platelets (Bld) [#/Vol] 172 10*3/uL Normal 140-450 [facility] Comment on above: Performed By: #### T SHX, ZFAST, CP, MG, CDP #### [facility] [address] [place] [address] Manager Content: Angelito Muir MD #### LIPR #### [address] [phone] Manager Content: Ambrose Moura MD RBC (Bld) [#/Vol] 3.69 10*6/uL Low 4.00-5.20 [facility] Comment on above: Performed By: #### T SHX, ZFAST, CP, MG, CDP #### [facility] [address] [place], [place] [phone] Manager Content: Angelito Muir MD #### LIPR #### [address] [phone] Manager Content: Ambrose Moura MD WBC (Bld) [#/Vol] 3.5 10*3/uL Normal 3.5-11.0 [facility] Comment on above: Performed By: #### T SHX, ZFAST, CP, MG, CDP #### [facility] [address] [place] [address] Manager Content: Angelito Muir MD #### LIPR #### [address] [phone] Manager Content: Ambrose Moura MD Comp Metabolic Profon 2023 Albumin [Mass/Vol] 4.0 g/dL Normal 3.5-5.2 [facility] Comment on above: Performed By: #### T SHX, ZFAST, CP, MG, CDP #### [facility] [address] [place], [place] [phone] Manager Content: Angelito Muir MD #### LIPR #### [address] [phone] Manager Content: Ambrose Moura MD Alkaline Phos 70 U/L Normal 35-104 [facility] Comment on above: Performed By: #### T SHX, ZFAST, CP, MG, CDP #### [facility] [address] [place], [place] [phone] Manager Content: Angelito Muir MD #### LIPR #### [address] [phone] Manager Content: Ambrose Moura MD ALT [Catalytic activity/Vol] 18 U/L Normal 5-33 [facility] Comment on above: Performed By: #### T SHX, ZFAST, CP, MG, CDP #### [facility] [address] [place], [place] [phone] Manager Content: Angelito Muir MD #### LIPR #### [address] [phone] Manager Content: Ambrose Moura MD Anion gap [Moles/Vol] 11 mmol/L Normal 9-17 [facility] Comment on above: Performed By: #### T SHX, ZFAST, CP, MG, CDP #### [facility] [address] [place], [place] [phone] Manager Content: Angelito Muir MD #### LIPR #### [address] [phone] Manager Content: Ambrose Moura MD AST [Catalytic activity/Vol] 17 U/L Normal <32 [facility] Comment on above: Performed By: #### T SHX, ZFAST, CP, MG, CDP #### [facility] [address] [place], [place] [phone] Manager Content: Angelito Muir MD #### LIPR #### [facility] [address] [place], [place] [phone] Manager Content: Ambrose Moura MD Bilirubin [Mass/Vol] 0.2 mg/dL Low 0.3-1.2 [facility] Comment on above: Performed By: #### T SHX, ZFAST, CP, MG, CDP #### [facility] [address] [place] [address] Manager Content: Angelito Muir MD #### LIPR #### [address] [phone] Manager Content: Ambrose Moura MD BUN/CRE Ratio 27 High 9-20 [facility] Comment on above: Performed By: #### T SHX, ZFAST, CP, MG, CDP #### [facility] [address] [place] [address] Manager Content: Angelito Muir MD #### LIPR #### [place] [address] [place], [place] [phone] Manager Content: Ambrose Moura MD Calcium [Mass/Vol] 8.7 mg/dL Normal 8.6-10.4 [facility] Comment on above: Performed By: #### T SHX, ZFAST, CP, MG, CDP #### [facility] [address] [place] [address] Manager Content: Angelito Muir MD #### LIPR #### [address] [phone] Manager Content: Ambrose Moura MD Chloride [Moles/Vol] 104 mmol/L Normal 98-107 [facility] Comment on above: Performed By: #### T SHX, ZFAST, CP, MG, CDP #### [facility] [address] [place], [place] [phone] Manager Content: Angelito Muir MD #### LIPR #### [place] [address] [place], [place] [phone] Manager Content: Ambrose Moura MD CO2 [Moles/Vol] 24 mmol/L Normal 20-31 [facility] Comment on above: Performed By: #### T SHX, ZFAST, CP, MG, CDP #### [facility] [address] [place] [address] Manager Content: Angelito Muir MD #### LIPR #### [address] [phone] Manager Content: Ambrose Moura MD Creatinine [Mass/Vol] 1.1 mg/dL High 0.5-0.9 [facility] Comment on above: Performed By: #### T SHX, ZFAST, CP, MG, CDP #### [facility] [address] [place], [place] [phone] Manager Content: Angelito Muir MD #### LIPR #### [address] [phone] Manager Content: Ambrose Moura MD GFR/1.73 sq M.predicted among non-blacks MDRD (S/P/Bld) [Vol rate/Area] 51 mL/min/{1.73_m2} Low >60 [facility] Comment on above: Result Comment: [...] T SHX, ZFAST, CP, MG, CDP #### [facility] [address] [place], [place] [phone] Manager Content: Angelito Muir MD #### LIPR #### [place] [address] [place], [place] [phone] Manager Content: Ambrose Moura MD Glucose [Mass/Vol] 102 mg/dL High 70-99 [facility] Comment on above: Performed By: #### T SHX, ZFAST, CP, MG, CDP #### [facility] [address] [place], [place] [phone] Manager Content: Angelito Muir MD #### LIPR #### [address] [phone] Manager Content: Ambrose Moura MD Potassium [Moles/Vol] 4.1 mmol/L Normal 3.7-5.3 [facility] Comment on above: Performed By: #### T SHX, ZFAST, CP, MG, CDP #### [facility] [address] [place], [place] [phone] Manager Content: Angelito Muir MD #### LIPR #### [address] [phone] Manager Content: Ambrose Moura MD Protein [Mass/Vol] 6.3 g/dL Low 6.4-8.3 [facility] Comment on above: Performed By: #### T SHX, ZFAST, CP, MG, CDP #### [facility] [address] [place], [place] [phone] Manager Content: Angelito Muir MD #### LIPR #### [address] [phone] Manager Content: Ambrose Moura MD Sodium [Moles/Vol] 139 mmol/L Normal 135-144 [facility] Comment on above: Performed By: #### T SHX, ZFAST, CP, MG, CDP #### [facility] [address] [place] [address] Manager Content: Angelito Muir MD #### LIPR #### [facility] [address] [place], [place] [phone] Manager Content: Ambrose Moura MD Urea nitrogen [Mass/Vol] 30 mg/dL High 8-23 [facility] Comment on above: Performed By: #### T SHX, ZFAST, CP, MG, CDP #### [facility] [address] [place] [address] Manager Content: Angelito Muir MD #### LIPR #### [facility] [address] [place], [place] [phone] Manager Content: Ambrose Moura MD Lipid Profileon 08-20-2023 Cholesterol [Mass/Vol] 112 mg/dL Normal 0-199 [facility] Comment on above: Result Comment: Cholesterol Guidelines: <200 Desirable 200-240 Borderline >240 Undesirable Performed By: #### B MP, TROPI, CBC, TSH #### [facility] [address] [place] [address] Manager Content: Angelito Muir MD Cholesterol in HDL [Mass/Vol] 39 mg/dL Low >40 [facility] Comment on above: Result Comment: HDL Guidelines: <40 Undesirable 40-59 Borderline >59 Desirable Performed By: #### B MP, TROPI, CBC, TSH #### [facility] [address] [place] [address] Manager Content: Angelito Muir MD Cholesterol in LDL [Mass/Vol] 58 mg/dL Normal 0-100 [facility] Comment on above: Result Comment: LDL Guidelines: <100 Desirable 100-129 Near to/above Desirable 130-159 Borderline >159 Undesirable Direct (measured) LDL and calculated LDL are not interchangeable tests. Performed By: #### B MP, TROPI, CBC, TSH #### [facility] [address] [place], [place] [phone] Manager Content: Angelito Muir MD Cholesterol in VLDL [Mass/Vol] 15 mg/dL Normal [facility] Comment on above: Performed By: #### B MP, TROPI, CBC, TSH #### [facility] [address] [place], [place] [phone] Manager Content: Angelito Muir MD Cholesterol.total/Cho lesterol in HDL [Mass ratio] 3.0 {ratio} Normal [facility] Comment on above: Performed By: #### B MP, TROPI, CBC, TSH #### [facility] [address] [place] [address] Manager Content: Angelito Muir MD Triglyceride [Mass/Vol] 77 mg/dL Normal <150 [facility] Comment on above: Result Comment: Triglyceride Guidelines: <150 Desirable 150-199 Borderline 200-499 High >499 Very high Based on AHA Guidelines for fasting triglyceride, March 2012. Performed By: #### B MP, TROPI, CBC, TSH #### [facility] [address] [place] [address] Manager Content: Angelito Muir MD Magnesiumon 08-20-2023 Magnesium [Mass/Vol] 2.1 mg/dL Normal 1.6-2.6 [facility] Comment on above: Performed By: #### T SHX, ZFAST, CP, MG, CDP #### [facility] [address] [place], [place] [phone] Manager Content: Angelito Muir MD #### LIPR #### [address] [address] Manager Content: Ambrose Moura MD Patient fasting?on 4 Patient fasting? YES Normal [facility] Comment on above: Performed By: #### T SHX, ZFAST, CP, MG, CDP #### [facility] [address] [facility] [place] [address] Manager Content: Angelito Muir MD #### LIPR #### [facility] [address] [place] [address] Manager Content: Ambrose Moura MD TSH w/reflex to FT4on 2023 Thyroid Stim. Horm. 1.88 uIU/mL Normal 0.30-5.00 [facility] Comment on above: Performed By: #### T SHX, ZFAST, CP, MG, CDP #### [facility] [address] [place] [address] Manager Content: Angelito Muir MD #### LIPR #### [facility] [address] [place] [address] Manager Content: Ambrose Moura MD XR CHEST (2 VW)on 08-20-2023 XR CHEST (2 VW) EXAM: XR CHEST (2 VW ) HISTORY: Essential hypertension COMPARISON: 02/27/2023. IMPRESSION: FINDINGS/IMPRESSION: 1. Normal sized heart. 2. Clear lungs. Interpreted by: Ishmael Valentin Jr., MD Signed by: Ishmael Valentin Jr., MD 08/20/23 Final result Normal [facility] COVID-19, Rapidon 07-01-2023 Interpretation and review of laboratory results Abnormal [facility] SARS-CoV-2 (COVID-19) RdRp gene JUAQUIN+probe Ql (Resp) Detected Abnormal Not Detected [facility] Comment on above: Rapid NAAT: The [...] this assay. Fact sheet for Healthcare Providers: https://www.fda.gov/media/841405/download Fact sheet for Patients: https://www.fda.gov/media/790788/download Methodology: Isothermal Nucleic Acid Amplification Results reported to the appropriate Health Department Specimen Description .[facility] A/B Ag Detectionon 07-01 Flu A Ag Detection Negative Normal NEG [facility] Comment on above: Result Comment: for Influenza A Antigen Performed By: #### B MP, TROPI, CBC, TSH #### [facility] [address] [place], [place] [id number] Manager Content: Angelito Muir MD Flu B Ag Detection Negative Normal NEG [facility] Comment on above: Result Comment: for Influenza B Antigen. Performed By: #### B MP, TROPI, CBC, TSH #### [facility] [address] [place] [address] Manager Content: Angelito Muir MD Rapid influenza A/B antigens on 07-01-2023 FLUAV Ag Ql (Unsp spec) Negative NEGATIVE [facility] Comment on above: for Influenza A Anti gen FLUBV Ag Ql (Unsp spec) Negative NEGATIVE [facility] Comment on above: for Influenza B Anti gen. [facility] [id number] 07-01-2023 SARS-CoV-2 (COVID-19) RNA JUAQUIN+probe Ql (Unsp spec) Detected Abnormal NOTDET [facility] Comment on above: Result Comment: Rapid NAAT: [...] this assay. Fact sheet for Healthcare Providers: https://www.fda.gov/media/642484/download Fact sheet for Patients: https://www.fda.gov/media/982580/download Methodology: Isothermal Nucleic Acid Amplification Results reported to the appropriate Health Department Performed By: #### B MP, TROPI, CBC, TSH #### [facility] [address] [place] [address] Manager Content: Angelito Muir MD Alanine aminotransferase [En zymatic activity/volume] in Serum or PlasmaOrdered By: Obie Hylton on 05-27-2023 ALT [Catalytic activity/Vol] 9 U/L Normal 7-[address] [facility] Comment on above: Performed By: #### C 4, CH50, C3 #### [facility] , #### ESR, CBC, ADDONUAPLUS, CMP #### [facility] [address] Albumin [Mass/volume] in Ser um or Plasma by Bromocresol green (BCG) dye binding methoOrdered By: Obie Hylton on 05-27-2023 Albumin BCG dye [Mass/Vol] 3.9 g/dL 3.5-5.[address] [facility] Alkaline phosphatase [Enzyma tic activity/volume] in Serum or PlasmaOrdered By: Obie Hylton on 05-27-2023 ALP [Catalytic activity/Vol] 51 U/L Normal 34-[address] [facility] Comment on above: Result Comment: PERF ORMED BY: [place] [address] PATHOLOGIST PROFESSIONAL NURSING TUTOR MANUEL PABON M.D. Performed By: #### C 4, CH50, C3 #### [facility] , #### ESR, CBC, ADDONUAPLUS, CMP #### [facility] [address] [place] [address] [place] Aspartate aminotransferase [ Enzymatic activity/volume] in Serum or PlasmaOrdered By: Obie Hylton on 05-27-2023 AST [Catalytic activity/Vol] 14 U/L Normal 13-[address] [facility] Comment on above: Performed By: #### C 4, CH50, C3 #### [facility] , #### ESR, CBC, ADDONUAPLUS, CMP #### [address] Automated basophil %Ordered By: Obie Hylton on 05-27-2023 Basophils/100 WBC (Bld) 0.4 % Normal . [facility] Comment on above: Performed By: #### C 3, CH50, C4 #### [facility] , #### ESR, CMP, CBC, ADDONUAPLUS #### [address] Automated basophil countOrde red By: Obie Hylton on 05-27-2023 Basophils (Bld) [#/Vol] 0.0 10*3/uL Normal 0.0-0.[address] [facility] Comment on above: Performed By: #### C 3, CH50, C4 #### [facility] , #### ESR, CMP, CBC, ADDONUAPLUS #### [address] Automated blood monocyte cou ntOrdered By: Obie Hylton on 05-27-2023 Monocytes (Bld) [#/Vol] 0.3 10*3/uL Normal 0.0-0.[address] [facility] Comment on above: Performed By: #### C 3, CH50, C4 #### [facility] , #### ESR, CMP, CBC, ADDONUAPLUS #### [address] Automated eosinophil %Ordere d By: Obie Hylton on 05-27-2023 Eosinophils/100 WBC (Bld) 2.0 % Normal . [facility] Comment on above: Performed By: #### C 3, CH50, C4 #### [facility] , #### ESR, CMP, CBC, ADDONUAPLUS #### [address] Automated eosinophil countOr dered By: Obie Hylton on 05-27-2023 Eosinophils (Bld) [#/Vol] 0.1 10*3/uL Normal 0.0-0.[address] [facility] Comment on above: Performed By: #### C 3, CH50, C4 #### [facility] , #### ESR, CMP, CBC, ADDONUAPLUS #### [facility] [address] Automated erythrocytes count in urine sediment (number/area)Ordered By: Obie Hylton on 05-27-2023 RBC Auto (Urine sed) [#/Area] 0-1 [HPF] 0-[address] [facility] Automated leukocytes count i n urine sediment (number/area)Ordered By: Obie Hylton on 05-27-2023 WBC Auto (Urine sed) [#/Area] 0-1 [HPF] 0-[address] [facility] Automated monocyte %Ordered By: Obie Hylton on 05-27-2023 Monocytes/100 WBC (Bld) 8.4 % Normal . [facility] Comment on above: Performed By: #### C 3, CH50, C4 #### [facility] , #### ESR, CMP, CBC, ADDONUAPLUS #### [facility] [address] [place] [address] Automated neutrophil %Ordere d By: Oibe Hylton on 05-27-2023 Neutrophils/100 WBC (Bld) 61.9 % Normal . [facility] Comment on above: Performed By: #### C 3, CH50, C4 #### [facility] , #### ESR, CMP, CBC, ADDONUAPLUS #### [facility] [address] [place] [address] Automated urine color determ inationOrdered By: Obie Hylton on 05-27-2023 Color (U) Yellow Normal Yellow [facility] Comment on above: Order Comment: Name Collection Type:: Clean-Voided Midstream Performed By: #### C 3, CH50, C4 #### [facility] , #### ESR, CMP, CBC, ADDONUAPLUS #### [facility] [address] Bilirubin Test strip Ql (U)O rdered By: Obie Hylton on 05-27-2023 Bilirubin Ql (U) Negative Negative [facility] Bilirubin.total [Mass/volume ] in Serum or PlasmaOrdered By: Obie Hylton on 05-27-2023 Bilirubin [Mass/Vol] 0.5 mg/dL Normal 0.3-1.0 [facility] Comment on above: Performed By: #### C 4, CH50, C3 #### [facility] , #### ESR, CBC, ADDONUAPLUS, CMP #### [address] Calcium [Mass/volume] in Ser um or PlasmaOrdered By: Obie Ramirezrow on 05-27-2023 Calcium [Mass/Vol] 8.9 mg/dL Normal 8.6-10.3 [facility] Comment on above: Performed By: #### C 4, CH50, C3 #### [facility] , #### ESR, CBC, ADDONUAPLUS, CMP #### [facility] [address] [place] [address] Carbon dioxide, total [Moles /volume] in Serum or PlasmaOrdered By: Obie Ramirezrow on 05-27-2023 CO2 [Moles/Vol] 27.0 mmol/L Normal 21.0-31.0 [facility] Comment on above: Performed By: #### C 4, CH50, C3 #### [facility] , #### ESR, CBC, ADDONUAPLUS, CMP #### [facility] [address] [place] [address] [place] Chloride [Moles/volume] in S liat or PlasmaOrdered By: Obie Ramirezrow on 05-27-2023 Chloride [Moles/Vol] 112 mmol/L High 98-107 [facility] Comment on above: Performed By: #### C 4, CH50, C3 #### [facility] , #### ESR, CBC, ADDONUAPLUS, CMP #### [address] Complement C3on 05-27-2023 Complement C3 110 mg/dL Normal 82-167 [facility] Comment on above: Result Comment: Perf ormed at: [address] [id number] Manager Content: Usman Draper PhD, Phone: [phone] Performed By: #### C 3, CH50, C4 #### [facility] , #### ESR, CMP, CBC, ADDONUAPLUS #### [address] Complement C4on 05-27-2023 Complement C4 25 mg/dL Normal 12-38 [facility] Comment on above: Result Comment: PERF ORMED BY: [place] [address] PATHOLOGIST PROFESSIONAL NURSING TUTOR MANUEL PABON M.D. Performed By: #### C 3, CH50, C4 #### [facility] , #### ESR, CMP, CBC, ADDONUAPLUS #### [address] Complement Total (CH50)on Complement Total (CH50) 58 Normal >41 [facility] Comment on above: Result Comment: [...] determine out of range values. Performed at: [facility] [id number] Manager Content: Usman Draper PhD, Phone: [phone] PERFORMED BY: [place] [address] PATHOLOGIST PROFESSIONAL NURSING TUTOR MANUEL PABON M.D. Performed By: #### C 3, CH50, C4 #### [facility] , #### ESR, CMP, CBC, ADDONUAPLUS #### [address] Complete Blood Count Auto Di ffon 05-27-2023 Mean Corpuscular HGB Conc 33.9 g/dL Normal 32.0-35.0 [facility] Comment on above: Performed By: #### C 3, CH50, C4 #### [facility] , #### ESR, CMP, CBC, ADDONUAPLUS #### [address] NRBC% 0.2 /100{WBC} Normal 0-0.5 [facility] Comment on above: Performed By: #### C 3, CH50, C4 #### [facility] , #### ESR, CMP, CBC, ADDONUAPLUS #### [address] Comprehensive Metabolic Pane [facility] 05-27-2023 Albumin [Mass/Vol] 3.9 g/dL Normal 3.5-5.7 [facility] Comment on above: Performed By: #### C 4, CH50, C3 #### [facility] , #### ESR, CBC, ADDONUAPLUS, CMP #### [address] GFR/1.73 sq M.predicted MDRD (S/P/Bld) [Vol rate/Area] 46.333 mL/min/{1.73_m2} Normal [facility] Comment on above: Performed By: #### C 4, CH50, C3 #### [facility] , #### ESR, CBC, ADDONUAPLUS, CMP #### [address] Creatinine [Mass/volume] in Serum or PlasmaOrdered By: Obie Warner on 05-27-2023 Creatinine [Mass/Vol] 1.20 mg/dL Normal 0.60-1.20 [facility] Comment on above: Performed By: #### C 4, CH50, C3 #### [facility] , #### ESR, CBC, ADDONUAPLUS, CMP #### [facility] [address] [place] [address] [place] Dipstick and Microscopicon 1 07-27-2022 Appearance (U) Cloudy Critically abnormal Clear [facility] Comment on above: Order Comment: Name Collection Type:: Clean-Voided Midstream Performed By: #### C 3, CH50, C4 #### [facility] , #### ESR, CMP, CBC, ADDONUAPLUS #### [address] Bacteria,Urine None Seen Normal None Seen [facility] Comment on above: Order Comment: Name Collection Type:: Clean-Voided Midstream Performed By: #### C 3, CH50, C4 #### [facility] , #### ESR, CMP, CBC, ADDONUAPLUS #### [address] Bilirubin,Urine Negative Normal Negative [facility] Comment on above: Order Comment: Name Collection Type:: Clean-Voided Midstream Performed By: #### C 3, CH50, C4 #### [facility] , #### ESR, CMP, CBC, ADDONUAPLUS #### [place] [address] [place] Glucose Ql (U) Normal Normal Normal [facility] Comment on above: Order Comment: Name Collection Type:: Clean-Voided Midstream Performed By: #### C 3, CH50, C4 #### [facility] , #### ESR, CMP, CBC, ADDONUAPLUS #### [place] [id number] [place] Hyaline Casts,Urine 0-8 Normal 0-8 [facility] Comment on above: Order Comment: Name Collection Type:: Clean-Voided Midstream Result Comment: PERF ORMED BY: [place] [address] PATHOLOGIST PROFESSIONAL NURSING TUTOR MANUEL PABON M.D. Performed By: #### C 3, CH50, C4 #### [facility] , #### ESR, CMP, CBC, ADDONUAPLUS #### [address] Ketones Ql (U) Negative Normal Negative [facility] Comment on above: Order Comment: Name Collection Type:: Clean-Voided Midstream Performed By: #### C 3, CH50, C4 #### [facility] , #### ESR, CMP, CBC, ADDONUAPLUS #### [address] Leukocyte esterase Test strip Ql (U) Negative Normal Negative [facility] Comment on above: Order Comment: Name Collection Type:: Clean-Voided Midstream Performed By: #### C 3, CH50, C4 #### [facility] , #### ESR, CMP, CBC, ADDONUAPLUS #### [address] Nitrite,Urine Negative Normal Negative [facility] Comment on above: Order Comment: Name Collection Type:: Clean-Voided Midstream Performed By: #### C 3, CH50, C4 #### [facility] , #### ESR, CMP, CBC, ADDONUAPLUS #### [address] Occult Blood,Urine Trace High Negative [facility] Comment on above: Order Comment: Name Collection Type:: Clean-Voided Midstream Performed By: #### C 3, CH50, C4 #### [facility] , #### ESR, CMP, CBC, ADDONUAPLUS #### [address] Protein,Urine Negative Normal Negative [facility] Comment on above: Order Comment: Name Collection Type:: Clean-Voided Midstream Performed By: #### C 3, CH50, C4 #### [facility] , #### ESR, CMP, CBC, ADDONUAPLUS #### [address] RBC LM.HPF (Urine sed) [#/Area] 0 /[HPF] Normal 0-4 [facility] Comment on above: Order Comment: Name Collection Type:: Clean-Voided Midstream Performed By: #### C 3, CH50, C4 #### [facility] , #### ESR, CMP, CBC, ADDONUAPLUS #### [address] Specificy [place],Urine 1.017 Normal 1.001-1.03 0 [facility] Comment on above: Order Comment: Name Collection Type:: Clean-Voided Midstream Performed By: #### C 3, CH50, C4 #### [facility] , #### ESR, CMP, CBC, ADDONUAPLUS #### [address] Squamous Epithelial Cell,Urine 1-2 Normal 0-2 [facility] Comment on above: Order Comment: Name Collection Type:: Clean-Voided Midstream Performed By: #### C 3, CH50, C4 #### [facility] , #### ESR, CMP, CBC, ADDONUAPLUS #### [address] Urobilinogen,Urine Normal Normal Normal [facility] Comment on above: Order Comment: Name Collection Type:: Clean-Voided Midstream Performed By: #### C 3, CH50, C4 #### [facility] , #### ESR, CMP, CBC, ADDONUAPLUS #### [address] WBC LM.HPF (Urine sed) [#/Area] 0 /[HPF] Normal 0-4 [facility] Comment on above: Order Comment: Name Collection Type:: Clean-Voided Midstream Performed By: #### C 3, CH50, C4 #### [facility] , #### ESR, CMP, CBC, ADDONUAPLUS #### [address] Erythrocyte Sedimentation Ra heather 05-27-2023 ESR (Bld) [Velocity] 17 mm/h Normal 0-29 [facility] Comment on above: Result Comment: PERF ORMED BY: [place] [address] PATHOLOGIST PROFESSIONAL NURSING TUTOR MANUEL PABON M.D. Performed By: #### C 3, CH50, C4 #### [facility] , #### ESR, CMP, CBC, ADDONUAPLUS #### [address] Erythrocyte distribution wid th [Ratio] by Automated countOrdered By: Obie Hylton on 05-27-2023 Erythrocyte distribution width (RBC) [Ratio] 14.9 % Normal 11.9-15.[address] [facility] Comment on above: Performed By: #### C 3, CH50, C4 #### [facility] , #### ESR, CMP, CBC, ADDONUAPLUS #### [address] Erythrocyte sedimentation ra te by Photometric methodOrdered By: Obie Hylton on 05-27-2023 ESR Photometric method (Bld) [Velocity] 17 mm/hr 0-[address] [facility] Erythrocytes [#/volume] in B lood by Automated countOrdered By: Obie Hylton on 05-27-2023 RBC (Bld) [#/Vol] 3.68 10*6/uL Normal 3.60-5.[address] [facility] Comment on above: Performed By: #### C 3, CH50, C4 #### [facility] , #### ESR, CMP, CBC, ADDONUAPLUS #### [facility] [address] [place] [address] [place] Glucose [Mass/volume] in Ser um or PlasmaOrdered By: Obie Hylton on 05-27-2023 Glucose [Mass/Vol] 91 mg/dL Normal 70-100 [facility] Comment on above: ADA recommended refe rence rangeRandom Glucose Reference Range is dependent on time and content of last meal. Glucose of more than 200 mg/dL in a nonstressed, ambulatory subject supports the diagnosis of Diabetes Mellitus. Result Comment: [place] om Glucose Reference Range is dependent on time and content of last meal. Glucose of more than 200 mg/dL in a nonstressed, ambulatory subject supports the diagnosis of Diabetes Mellitus. ADA recommended reference range Performed By: #### C 4, CH50, C3 #### [facility] , #### ESR, CBC, ADDONUAPLUS, CMP #### [facility] [address] [place] [address] [place] Hematocrit [Volume Fraction] of Blood by Automated countOrdered By: Obie Hylton on 05-27-2023 Hematocrit (Bld) [Volume fraction] 34.4 % Normal 34.0-46.[address] [facility] Comment on above: Performed By: #### C 3, CH50, C4 #### [facility] , #### ESR, CMP, CBC, ADDONUAPLUS #### [facility] [address] [place] [address] [place] Hemoglobin [Mass/volume] in BloodOrdered By: Obie Hylton on 05-27-2023 Hemoglobin (Bld) [Mass/Vol] 11.7 g/dL Low 11.8-15.[address] [facility] Comment on above: Performed By: #### C 3, CH50, C4 #### [facility] , #### ESR, CMP, CBC, ADDONUAPLUS #### [address] Ketones Auto test strip (U) [Mass/Vol]Ordered By: Obie Hylton on 05-27-2023 Ketones (U) [Mass/Vol] Negative Negative [facility] - UrinalysisOrder ed By: Obie Hylton on 05-27-2023 Hyaline casts LM Ql (Urine sed) 0-8 [LPF] 0-[address] [facility] Leukocytes [#/volume] correc pepito for nucleated erythrocytes in Blood by Automated counOrdered By: Obie Hylton on 05-27-2023 WBC corrected for nucl RBC Auto (Bld) [#/Vol] 3.9 10*3/uL 3.8-11.[address] [facility] Leukocytes [#/volume] in Blo od by Automated countOrdered By: Obie Ramirezrow on 05-27-2023 WBC (Bld) [#/Vol] 3.9 10*3/uL Normal 3.8-11.6 [facility] Comment on above: Performed By: #### C 3, CH50, C4 #### [facility] , #### ESR, CMP, CBC, ADDONUAPLUS #### [place] [address] [place] Lymphocytes [#/volume] in Bl ood by Automated countOrdered By: Obie Ramirezrow on 05-27-2023 Lymphocytes (Bld) [#/Vol] 1.1 10*3/uL Normal 1.00-4.[address] [facility] Comment on above: Performed By: #### C 3, CH50, C4 #### [facility] , #### ESR, CMP, CBC, ADDONUAPLUS #### [facility] [address] [place] [address] [place] Lymphocytes/100 leukocytes i n Blood by Automated countOrdered By: Obie Ramirezrow on 05-27-2023 Lymphocytes/100 WBC (Bld) 27.3 % Normal . [facility] Comment on above: Performed By: #### C 3, CH50, C4 #### [facility] , #### ESR, CMP, CBC, ADDONUAPLUS #### [facility] [address] [place] [address] MCH [Entitic mass] by Automa pepito countOrdered By: Obie Ramirezrow on 05-27-2023 MCH (RBC) [Entitic mass] 31.7 pg Normal 24.7-34.[address] [facility] Comment on above: Performed By: #### C 3, CH50, C4 #### [facility] , #### ESR, CMP, CBC, ADDONUAPLUS #### [address] MCHC Auto (RBC) [Mass/Vol]Or dered By: Obie Warner on 05-27-2023 MCHC (RBC) [Mass/Vol] 33.9 g/dL 32.0-35.0 [facility] MCV [Entitic volume] by Auto mated countOrdered By: Obie Ramirezrow on 05-27-2023 MCV (RBC) [Entitic vol] 93.4 fL Normal 80-[address] [facility] Comment on above: Performed By: #### C 3, CH50, C4 #### [facility] , #### ESR, CMP, CBC, ADDONUAPLUS #### [address] Neutrophils [#/volume] in Bl ood by Automated countOrdered By: Obie Warner on 05-27-2023 Neutrophils (Bld) [#/Vol] 2.4 10*3/uL Normal 1.8-7.[address] [facility] Comment on above: Performed By: #### C 3, CH50, C4 #### [facility] , #### ESR, CMP, CBC, ADDONUAPLUS #### [address] Nitrite Test strip Ql (U)Ord ered By: Obie Hylton on 05-27-2023 Nitrite Ql (U) Negative Negative [facility] No Panel InformationOrdered By: Obie Hylton on 05-27-2023 Estimated GFR (CKD-EPI) 46.333 mL/Min [facility] Creatinine Clearance (Chem N/A [facility] Nucleated erythrocytes [Pres ence] in Blood by Automated countOrdered By: Obie Hylton on 05-27-2023 Nucleated RBC Auto Ql (Bld) 0.2 /100{WBC} 0-0.[address] [facility] Platelet mean volume [Entiti c volume] in Blood by Automated countOrdered By: Obie Hylton on 05-27-2023 Platelet mean volume (Bld) [Entitic vol] 8.8 fL Normal 6.3-10.[address] [facility] Comment on above: Performed By: #### C 3, CH50, C4 #### [facility] , #### ESR, CMP, CBC, ADDONUAPLUS #### [address] Platelets [#/volume] in Bloo d by Automated countOrdered By: Obie Hylton on 05-27-2023 Platelets (Bld) [#/Vol] 193 10*3/uL Normal 150-[address] [facility] Comment on above: Performed By: #### C 3, CH50, C4 #### [facility] , #### ESR, CMP, CBC, ADDONUAPLUS #### [address] Potassium [Moles/volume] in Serum or PlasmaOrdered By: Obie Hylton on 05-27-2023 Potassium [Moles/Vol] 4.4 mmol/L Normal 3.5-5.1 [facility] Comment on above: Performed By: #### C 4, CH50, C3 #### [facility] , #### ESR, CBC, ADDONUAPLUS, CMP #### [address] Protein Auto test strip (U) [Mass/Vol]Ordered By: Obie Ramirezrow on 05-27-2023 Protein (U) [Mass/Vol] Negative Negative [facility] Protein [Mass/volume] in Ser um or PlasmaOrdered By: Obie Ramirezrow on 05-27-2023 Protein [Mass/Vol] 6.0 g/dL Low 6.4-8.9 [facility] Comment on above: Performed By: #### C 4, CH50, C3 #### [facility] , #### ESR, CBC, ADDONUAPLUS, CMP #### [address] Serum globulin measurement b y calculation (mass/volume)Ordered By: Obie Ramirezrow on 05-27-2023 Globulin (S) [Mass/Vol] 2.1 g/dL Normal [facility] Comment on above: Performed By: #### C 4, CH50, C3 #### [facility] , #### ESR, CBC, ADDONUAPLUS, CMP #### [address] Serum or plasma albumin/glob ulin mass ratioOrdered By: Obie Warner on 05-27-2023 Albumin/Globulin [Mass ratio] 1.9 {ratio} Normal [facility] Comment on above: Performed By: #### C 4, CH50, C3 #### [facility] , #### ESR, CBC, ADDONUAPLUS, CMP #### [address] Serum or plasma anion gap de terminationOrdered By: Obie Warner on 05-27-2023 Anion gap [Moles/Vol] 8.4 mmol/L Normal 6.0-15.0 [facility] Comment on above: Performed By: #### C 4, CH50, C3 #### [facility] , #### ESR, CBC, ADDONUAPLUS, CMP #### [address] Sodium [Moles/volume] in Ser um or PlasmaOrdered By: Obie Warner on 05-27-2023 Sodium [Moles/Vol] 143 mmol/L Normal 136-145 [facility] Comment on above: Performed By: #### C 4, CH50, C3 #### [facility] , #### ESR, CBC, ADDONUAPLUS, CMP #### [facility] [address] Specific gravity Auto test s trip (U) [Rel density]Ordered By: Obie Hylton on 05-27-2023 Specific gravity (U) [Rel density] 1.017 1.001-1.[address] [facility] Squamous epithelial cells de tection in urine sediment by light microscopyOrdered By: Obie Hylton on 05-27-2023 Epithelial cells.squamous LM Ql (Urine sed) 1-2 [HPF] 0-[address] [facility] Urea nitrogen [Mass/volume] in Serum or PlasmaOrdered By: Obie Hylton on 05-27-2023 Urea nitrogen [Mass/Vol] 25 mg/dL Normal 7-[address] [facility] Comment on above: Performed By: #### C 4, CH50, C3 #### [facility] , #### ESR, CBC, ADDONUAPLUS, CMP #### [facility] [address] [place] [address] Urine bacteria detection by automated methodOrdered By: Obie Hylton on 05-27-2023 Bacteria Auto Ql (U) None seen None Seen [facility] Urine clarity by refractomet ry automatedOrdered By: Obie Hylton on 05-27-2023 Clarity Refractometry automated (U) Cloudy Clear [facility] Urine glucose measurement by automated test strip (mass/volume)Ordered By: Obie Hylton on 05-27-2023 Glucose Auto test strip (U) [Mass/Vol] Normal mg/dL Normal [facility] Urine hemoglobin detection b y automated test stripOrdered By: Obie Hylton on 05-27-2023 Hemoglobin Auto test strip Ql (U) Trace Negative [facility] Urine leukocyte esterase det ection by automated test stripOrdered By: Obie Hylton on 05-27-2023 Leukocyte esterase Auto test strip Ql (U) Negative Negative [facility] Urine pH measurement by auto mated test stripOrdered By: Obie Hylton on 05-27-2023 pH (U) 5.5 [pH] Normal 5.0-9.[address] [facility] Comment on above: Order Comment: Name Collection Type:: Clean-Voided Midstream Performed By: #### C 3, CH50, C4 #### [facility] , #### ESR, CMP, CBC, ADDONUAPLUS #### [facility] [address] Urobilinogen Auto test strip (U) [Mass/Vol]Ordered By: Obie Hylton on 05-27-2023 Urobilinogen (U) [Mass/Vol] Normal mg/dL Normal [facility] Cult,Urineon 05-21-2023 Cult,Urine Specimen Description .CLEAN CATCH [...] Tobramycin <=1 SUSCEPTIBLE Trimethoprim/Sulfa <=20 SUSCEPTIBLE Susceptible [facility] Comment on above: Performed By: #### B MP, TROPI, CBC, TSH #### [facility] [address] [place] [address] Manager Content: Angelito Muir MD [facility] WU DIGITAL SCREEN BILA TERALoyaneth 05-14-2023 [facility] WU DIGITAL SCREEN BILATERAL HISTORY: Screening. Family [...] Valentin Jr., MD 05/14/23 Final result Normal [facility] Follow-Upon 04-11-2023 Follow-Up [id number] Genny Rios ev Payan 1945 F Date Provider Department Center 04/11/2023 [id number], XU NWO [facility] No family history on file Level of Service:85816 [place] OFFICE/OUTPATIENT ESTABLISHED LOW MDM 20-29 MIN Normal [facility] Office Visiton 03-28-2023 Follow-up visit [id number] Betty Riosoz Payan 1945 Date Provider Department Center 03/28/2023 [id number] family history on file Level of Service:56417 [place] OFFICE/OUTPATIENT NEW MODERATE MDM 45-59 MINUTES Normal [facility] US RENAL LIMITEDon 3 US RENAL LIMITED EXAMINATION: ULTRASOUND OF THE KIDNEYS 03/13/2023 10:12 am COMPARISON: None. HISTORY: ORDERING SYSTEM PROVIDED HISTORY: Renal cyst TECHNOLOGIST PROVIDED HISTORY: This procedure can be scheduled via [employer]. Access your [employer] account by visiting [employer]. FINDINGS: The right kidney measures 11.7 cm [...] HISTORY: This procedure can be scheduled via [employer]. Access your [employer] account by visiting [employer]. FINDINGS: The right kidney measures 11.7 cm in length and the left kidney measures 11.3 cm in length. Normal renal cortical echogenicity. No hydronephrosis or nephrolithiasis. Simple right renal cyst 5 cm. Simple left renal cyst 5.2 cm. MHPN RIS CONSOLIDATED Jonny Lopez, DO - 03/13/2023 EXAMINATION: ULTRASOUND OF THE KIDNEYS 03/13/2023 10:12 am COMPARISON: None. HISTORY: ORDERING SYSTEM PROVIDED HISTORY: Renal cyst TECHNOLOGIST PROVIDED HISTORY: This procedure can be scheduled via [employer]. Access your [employer] account by visiting [employer]. FINDINGS: The right kidney measures 11.7 cm in length and the left kidney measures 11.3 cm in length. Normal renal cortical echogenicity. No hydronephrosis or nephrolithiasis. Simple right renal cyst 5 cm. Simple left renal cyst 5.2 cm. IMPRESSION: Simple bilateral renal cysts with otherwise unremarkable exam [facility] Study observation (narrative) [facility] US RENAL LIMITEDOrdered By: Jonny Lopez on 03-13-2023 [facility] Work Phone: XR lumbar spine 6V w bending on 03-07-2023 XR lumbar spine 6V w bending [facility] [place] [address] XRay Report Signed Patient: Mary Jane Rios MR#: [id number] 15 : 1945 Acct:[id number] Age/Sex: 77 / F ADM Date: 03/07/23 Loc: XD Room: Type: [facility] Attending Dr: Mukul Wilson MD Copies to: [...] Jabier Alexander M.D.03/07/2023 12:27 PM Dictation Location: [place] [address] Transcribed By: [facility] 03/07/23 1227 Dictated By: Jabier Alexander DO 03/07/23 1225 Signed By: 03/07/23 1227 Normal [facility] Consent for Procedure/Surger yon 03-01-2023 Consent for Procedure/Surgery [id number] Normal [facility] Ambulatory Visit Summaryon 0 02-28-2023 Ambulatory [...] tablet) fluticasone nasal (fluticasone 0.05 mg/inh Nasal Jolon) levothyroxine (levothyroxine 50 mcg (0.05 mg) Tab) [...] fluticasone nasal (fluticasone 0.05 mg/ inh Nasal Jolon) 50 Microgram Nasal Inhalation Every day Unchanged [...] Nocturia Sl (more content not included)... Normal [facility] Cult,Urineon 02-28-2023 Cult,Urine Specimen Description .CLEAN CATCH URINE Culture NO SIGNIFICANT GROWTH Report Status FINAL 02/28/2023 Normal [facility] Comment on above: Performed By: #### B MP, TROPI, CBC, TSH #### [facility] [address] [place] [address] Manager Content: Angelito Muir MD Basic Metabolic Profon 02-27 Anion gap [Moles/Vol] 9 mmol/L Normal 9-17 [facility] Comment on above: Performed By: #### B MP, TROPI, CBC, TSH #### [facility] [address] [place] [address] Manager Content: Angelito Muir MD BUN/CRE Ratio 26 High 9-20 [facility] Comment on above: Performed By: #### B MP, TROPI, CBC, TSH #### [facility] [address] [place] [address] Manager Content: Angelito Muir MD Calcium [Mass/Vol] 9.2 mg/dL Normal 8.6-10.4 [facility] Comment on above: Performed By: #### B MP, TROPI, CBC, TSH #### [facility] [address] [place] [address] Manager Content: Angelito Muir MD Chloride [Moles/Vol] 104 mmol/L Normal 98-107 [facility] Comment on above: Performed By: #### B MP, TROPI, CBC, TSH #### [facility] [address] [place] [address] Manager Content: Angelito Muir MD CO2 [Moles/Vol] 25 mmol/L Normal 20-31 [facility] Comment on above: Performed By: #### B MP, TROPI, CBC, TSH #### [facility] [address] [place] [address] Manager Content: Angelito Muir MD Creatinine [Mass/Vol] 1.1 mg/dL High 0.5-0.9 [facility] Comment on above: Performed By: #### B MP, TROPI, CBC, TSH #### [facility] [address] [place], [place] [phone] Manager Content: Angelito Muir MD GFR/1.73 sq M.predicted among non-blacks MDRD (S/P/Bld) [Vol rate/Area] 51 mL/min/{1.73_m2} Low >60 [facility] Comment on above: Result Comment: [...] #### B MP, TROPI, CBC, TSH #### [facility] [address] [place], [place] [phone] Manager Content: Angelito Muir MD Glucose [Mass/Vol] 93 mg/dL Normal 70-99 [facility] Comment on above: Performed By: #### B MP, TROPI, CBC, TSH #### [facility] [address] [place] [address] Manager Content: Angelito Muir MD Potassium [Moles/Vol] 4.2 mmol/L Normal 3.7-5.3 [facility] Comment on above: Performed By: #### B MP, TROPI, CBC, TSH #### [facility] [address] [place], [place] [phone] Manager Content: Angelito Muir MD Sodium [Moles/Vol] 138 mmol/L Normal 135-144 [facility] Comment on above: Performed By: #### B MP, TROPI, CBC, TSH #### [facility] [address] [place], [place] [phone] Manager Content: Angelito Muir MD Urea nitrogen [Mass/Vol] 29 mg/dL High 8-23 [facility] Comment on above: Performed By: #### B MP, TROPI, CBC, TSH #### [facility] [address] [place] [address] Manager Content: Angelito Muir MD CBC with Diffon 02-27-2023 Abs. Atypical Lymphs 0.20 k/uL Normal 0.0-1.0 [facility] Comment on above: Performed By: #### B MP, TROPI, CBC, TSH #### [facility] [address] [place] [address] Manager Content: Angelito Muir MD Abs. Basophil Normal 0.0-0.2 [facility] Comment on above: Performed By: #### B MP, TROPI, CBC, TSH #### [facility] [address] [place] [address] Manager Content: Angelito Muir MD Abs.Imm.Granulocyte Normal 0.00-0.30 [facility] Comment on above: Performed By: #### B MP, TROPI, CBC, TSH #### [facility] [address] [place] [phone] Manager Content: Angelito Muir MD Abs.Neutrophil (Seg) 4.60 k/uL Normal 2.5-7.0 [facility] Comment on above: Performed By: #### B MP, TROPI, CBC, TSH #### [facility] [address] [place], [place] [phone] Manager Content: Angelito Muir MD Atypical Lymphs 3 % Normal [facility] Comment on above: Performed By: #### B MP, TROPI, CBC, TSH #### [facility] [address] [place], [place] [phone] Manager Content: Angelito Muir MD Basophil Normal 0-2 [facility] Comment on above: Performed By: #### B MP, TROPI, CBC, TSH #### [facility] [address] [place], [place] [phone] Manager Content: Angelito Muir MD Eosinophils (Bld) [#/Vol] 0.07 10*3/uL Normal 0.0-0.4 [facility] Comment on above: Performed By: #### B MP, TROPI, CBC, TSH #### [facility] [address] [place] [phone] Manager Content: Angelito Muir MD Eosinophils/100 WBC (Bld) 1 % Normal 0-5 [facility] Comment on above: Performed By: #### B MP, TROPI, CBC, TSH #### [facility] [address] [place] [address] Manager Content: Angelito Muir MD Immature Granulocyte Normal 0 [facility] Comment on above: Performed By: #### B MP, TROPI, CBC, TSH #### [facility] [address] [place] [address] Manager Content: Angelito Muir MD Lymphocytes (Bld) [#/Vol] 1.24 10*3/uL Normal 1.0-4.8 [facility] Comment on above: Performed By: #### B MP, TROPI, CBC, TSH #### [facility] [address] [place] [address] Manager Content: Angelito Muir MD Lymphocytes/100 WBC (Bld) 19 % Normal 15-40 [facility] Comment on above: Performed By: #### B MP, TROPI, CBC, TSH #### [facility] [address] [place] [address] Manager Content: Angelito Muir MD Monocytes (Bld) [#/Vol] 0.39 10*3/uL Normal 0.0-1.0 [facility] Comment on above: Performed By: #### B MP, TROPI, CBC, TSH #### [facility] [address] [place], [place] [phone] Manager Content: Angelito Muir MD Monocytes/100 WBC (Bld) 6 % Normal 4-8 [facility] Comment on above: Performed By: #### B MP, TROPI, CBC, TSH #### [facility] [address] [place], [place] [phone] Manager Content: Angelito Muir MD Morphology Igor (Bld) [Interp] Manual Differential Performed Normal [facility] Comment on above: Performed By: #### B MP, TROPI, CBC, TSH #### [facility] [address] [place] [phone] Manager Content: Angelito Muir MD Neutrophil (Seg) 71 % Normal 47-75 [facility] Comment on above: Performed By: #### B MP, TROPI, CBC, TSH #### [facility] [address] [place] [address] Manager Content: Angelito Muir MD Erythrocyte distribution width (RBC) [Ratio] 14.6 % Normal 12.1-15.2 [facility] Comment on above: Performed By: #### B MP, TROPI, CBC, TSH #### [facility] [address] [place] [address] Manager Content: Angelito Muir MD Hematocrit (Bld) [Volume fraction] 36.6 % Normal 36-46 [facility] Comment on above: Performed By: #### B MP, TROPI, CBC, TSH #### [facility] [address] [place] [address] Manager Content: Angelito Muir MD Hemoglobin (Bld) [Mass/Vol] 12.3 g/dL Normal 12.0-16.0 [facility] Comment on above: Performed By: #### B MP, TROPI, CBC, TSH #### [facility] [address] [place] [phone] Manager Content: Angelito Muir MD MCH (RBC) [Entitic mass] 31.0 pg Normal 26-34 [facility] Comment on above: Performed By: #### B MP, TROPI, CBC, TSH #### [facility] [address] [place], [place] [phone] Manager Content: Angelito Muir MD MCHC (RBC) [Mass/Vol] 33.6 g/dL Normal 31-37 [facility] Comment on above: Performed By: #### B MP, TROPI, CBC, TSH #### [facility] [address] [place], [place] [phone] Manager Content: Angelito Muir MD MCV (RBC) [Entitic vol] 92.2 fL Normal 80-100 [facility] Comment on above: Performed By: #### B MP, TROPI, CBC, TSH #### [facility] [address] [place], [place] [phone]) Manager Content: Angelito Muir MD Platelets (Bld) [#/Vol] 202 10*3/uL Normal 140-450 [facility] Comment on above: Performed By: #### B MP, TROPI, CBC, TSH #### [facility] [address] [place], [place] [phone] Manager Content: Angelito Muir MD RBC (Bld) [#/Vol] 3.97 10*6/uL Low 4.0-5.2 [facility] Comment on above: Performed By: #### B MP, TROPI, CBC, TSH #### [facility] [address] [place], [place] [phone] Manager Content: Angelito Muir MD WBC (Bld) [#/Vol] 6.5 10*3/uL Normal 3.5-11.0 [facility] Comment on above: Performed By: #### B MP, TROPI, CBC, TSH #### [facility] [address] [place], [place] [phone] Manager Content: Angelito Muir MD Urinalysis, Routineon 2022 Bilirubin, SemiQt,Ur Negative Abnormal NEG [facility] Comment on above: Performed By: #### B MP, TROPI, CBC, TSH #### [facility] [address] [place] [address] Manager Content: Angelito Muir MD Blood, Urine TRACE Abnormal NEG [facility] Comment on above: Performed By: #### B MP, TROPI, CBC, TSH #### [facility] [address] [place] [address] Manager Content: Angelito Muir MD Clarity (U) Clear Normal CLEAR [facility] Comment on above: Performed By: #### B MP, TROPI, CBC, TSH #### [facility] [address] [place] [address] Manager Content: Angelito Muir MD Color (U) Yellow Normal YEL [facility] Comment on above: Performed By: #### B MP, TROPI, CBC, TSH #### [facility] [address] [place] [address] Manager Content: Angelito Muir MD Comment Normal [facility] Comment on above: Performed By: #### B MP, TROPI, CBC, TSH #### [facility] [address] [place] [address] Manager Content: Angelito Muir MD Glucose Ql (U) Negative Normal NEG [facility] Comment on above: Performed By: #### B MP, TROPI, CBC, TSH #### [facility] [address] [place] [address] Manager Content: Angelito Muir MD Ketones Ql (U) Negative Normal NEG [facility] Comment on above: Performed By: #### B MP, TROPI, CBC, TSH #### [facility] [address] [place] [address] Manager Content: Angelito Muir MD Leukocyte esterase Test strip Ql (U) 1+ Abnormal NEG [facility] Comment on above: Performed By: #### B MP, TROPI, CBC, TSH #### [facility] [address] [place], [place] [phone] Manager Content: Angelito Muir MD Nitrite,Ur Negative Normal NEG [facility] Comment on above: Performed By: #### B MP, TROPI, CBC, TSH #### [facility] [address] [place], [place] [phone] Manager Content: Angelito Muir MD PH,Ur 5.0 Normal 5.0-8.0 [facility] Comment on above: Performed By: #### B MP, TROPI, CBC, TSH #### [facility] [address] [place] [address] Manager Content: Angelito uMir MD Protein Ql (U) TRACE Abnormal NEG [facility] Comment on above: Performed By: #### B MP, TROPI, CBC, TSH #### [facility] [address] [place], [place] [phone] Manager Content: Angelito Muir MD Spec. Mystic,Ur 1.025 Normal 1.005-1.03 0 [facility] Comment on above: Performed By: #### B MP, TROPI, CBC, TSH #### [facility] [address] [place] [address] Manager Content: Angelito Muir MD Urobilinogen,Ur Normal Normal 0.0-1.0 [facility] Comment on above: Performed By: #### B MP, TROPI, CBC, TSH #### [facility] [address] [place], [place] [phone] Manager Content: Angelito Muir MD Urinalysis,Microon 3 ----- Normal [facility] Comment on above: Performed By: #### B MP, TROPI, CBC, TSH #### [facility] [address] [place], [place] [phone] Manager Content: Angelito Muir MD Bacteria 2+ Abnormal NONE [facility] Comment on above: Performed By: #### B MP, TROPI, CBC, TSH #### [facility] [address] [place], [place] [phone] Manager Content: Angelito Muir MD Epithelial cells LM Ql (Urine sed) 20 TO 50 Normal [facility] Comment on above: Performed By: #### B MP, TROPI, CBC, TSH #### [facility] [address] [place], [place] [phone] Manager Content: Angelito Muir MD Urine RBC's 2 TO 5 Normal 0-2 [facility] Comment on above: Performed By: #### B MP, TROPI, CBC, TSH #### [facility] [address] [place], [place] [phone] Manager Content: Angelito Muir MD Urine WBC's 2 TO 5 Normal 0 [facility] Comment on above: Performed By: #### B MP, TROPI, CBC, TSH #### [facility] [address] [place], [place] [phone] Manager Content: Angelito Muir MD XR CHEST (2 VW)on [...] Karyn Kwon MD 02/27/23 Final result Normal [facility] MR lumbar spine wo chang MR lumbar spine wo con [facility] [address] [place] [id number] MRI Report Signed Patient: Mary Jane Rios MR#: [id number] 15 : 1945 Acct:[id number] Age/Sex: 77 / F ADM Date: 02/21/23 Loc: MR Room: Type: [facility] Attending Dr: Yanelis Garcia MD Copies to: [...] John Anguiano M.D.02/21/2023 4:09 PM Dictation Location: [place] [address] Transcribed By: [facility] 02/21/23 1609 Dictated By: John Anguiano II, MD 02/21/23 1552 Signed By: 02/21/23 1601 Normal [facility] Cult,Urineon 12-15-2022 Cult,Urine Specimen Description [...] on above: Performed By: #### U #### [facility] [address] [place] [address] Manager Content: Ambrose Moura MD [facility] [address] [place] [address] Manager Content: Angelito Muir MD Urinalysis w/ Microon 2022 Bacteria TRACE Abnormal NONE [facility] Comment on above: Performed By: #### U AMIC #### [facility] [address] [place], [place] [phone] Manager Content: Angelito Muir MD Bilirubin, SemiQt,Ur Negative Normal NEG [facility] Comment on above: Performed By: #### U AMIC #### [facility] [address] [place], [place] [phone] Manager Content: Angelito Muir MD Blood, Urine 1+ Abnormal NEG [facility] Comment on above: Performed By: #### U AMIC #### [facility] [address] [place] [address] Dr. [place], [place] [phone] Manager Content: Angelito Muir MD Clarity (U) Clear Normal CLEAR [facility] Comment on above: Performed By: #### U AMIC #### [facility] [address] [place], [place] [phone] Manager Content: Angelito Muir MD Color (U) Yellow Normal YEL [facility] Comment on above: Performed By: #### U AMIC #### [facility] [address] [place] [address] Dr. [place], [place] [phone] Manager Content: Angelito Muir MD Epithelial cells LM Ql (Urine sed) 0 TO 2 Normal 0-25 [facility] Comment on above: Performed By: #### U AMIC #### [facility] [address] [place], [place] [phone] Manager Content: Angelito Muir MD Glucose Ql (U) Negative Normal NEG [facility] Comment on above: Performed By: #### U AMIC #### [facility] [address] [place], [place] [phone] Manager Content: Angelito Muir MD Ketones Ql (U) Negative Normal NEG [facility] Hospital Comment on above: Performed By: #### U AMIC #### [facility] [address] [place], [facility] Manager Content: Angelito Muir MD Leukocyte esterase Test strip Ql (U) Negative Normal NEG [facility] Comment on above: Performed By: #### U AMIC #### [facility] [address] [place] [phone] Manager Content: Angelito Muir MD Nitrite,Ur Negative Normal NEG [facility] Comment on above: Performed By: #### U AMIC #### [facility] [address] [place] [address] Dr. [place] [phone] Manager Content: Angelito Muir MD PH,Ur 6.0 Normal 5.0-9.0 [facility] Comment on above: Performed By: #### U AMIC #### [facility] [address] [place] [phone] Manager Content: Angelito Muir MD Protein Ql (U) Negative Normal NEG [facility] Comment on above: Performed By: #### U AMIC #### [facility] [address] [place] [address] Dr. [place] [phone] Manager Content: Angelito Muir MD Spec. Mystic,Ur 1.020 Normal 1.010-1.02 0 [facility] Comment on above: Performed By: #### U AMIC #### [facility] [address] [place], [facility] Manager Content: Angelito Muir MD Urine RBC's 0 TO 2 Normal 0-2 [facility] Comment on above: Performed By: #### U AMIC #### [facility] [address] [place] [address] Manager Content: Angelito Muir MD Urine WBC's 0 TO 2 Normal 0-5 [facility] Comment on above: Performed By: #### U AMIC #### [facility] [address] [place] [address] Manager Content: Angelito Muir MD Urobilinogen,Ur Normal Normal NORM [facility] Comment on above: Performed By: #### U AMIC #### [facility] [address] [place] [address] Manager Content: Angelito Muir MD CBC with Auto Differentialon 11-25-2022 Basophils (Bld) [#/Vol] 0.00 10*3/uL [facility] Basophils/100 WBC (Bld) 0 % 0 - 2 % [facility] Differential Type YES [facility] Eosinophils (Bld) [#/Vol] 0.10 10*3/uL [facility] Eosinophils/100 WBC (Bld) 2 % 0 - 5 % [facility] Erythrocyte distribution width (RBC) [Ratio] 14.0 % 12.1 - 15.2 % [facility] Hematocrit (Bld) [Volume fraction] 35.6 % Low 36 - 46 % [facility] Hemoglobin (Bld) [Mass/Vol] 12.0 g/dL 12.0 - 16.0 g/dL [facility] Interpretation and review of laboratory results Abnormal [facility] Lymphocytes/100 WBC (Bld) 27 % 15 - 40 % [facility] Lymphocytes/100 WBC (Bld) 1.30 % [facility] MCH (RBC) [Entitic mass] 31.0 pg 26 - 34 pg [facility] MCHC (RBC) [Mass/Vol] 33.8 g/dL 31 - 3 7 g/dL [facility] MCV (RBC) [Entitic vol] 91.6 fL 80 - 100 fL [facility] Monocytes/100 WBC (Bld) 9 % High 4 - 8 % [facility] Monocytes/100 WBC (Bld) 0.50 % [facility] Neutrophils/100 WBC (Bld) 62 % 47 - 75 % [facility] Platelets (Bld) [#/Vol] 240 10*3/uL [facility] RBC (Bld) [#/Vol] 3.89 10*6/uL Low 4.0 - 5.2 m/uL [facility] Segmented neutrophils/100 WBC (Bld) 3.10 % [facility] WBC other (Bld) [#/Vol] 5.0 [facility] Comprehensive Metabolic Pane trevor 11-25-2022 Albumin [Mass/Vol] 3.7 g/dL 3.5 - 5.2 g/dL [facility] ALP [Catalytic activity/Vol] 70 U/L 35 - 104 U/L [facility] ALT [Catalytic activity/Vol] 6 U/L 5 - 33 U/L [facility] Anion gap [Moles/Vol] 10 mmol/L 9 - 17 mmol/L [facility] AST [Catalytic activity/Vol] 15 U/L NINF - 32 U/L [facility] Bilirubin [Mass/Vol] 0.3 mg/dL 0.3 - 1 .2 mg/dL [facility] Calcium [Mass/Vol] 9.4 mg/dL 8.6 - 10. 4 mg/dL [facility] Chloride [Moles/Vol] 105 mmol/L 98 - 10 7 mmol/L [facility] CO2 [Moles/Vol] 24 mmol/L 20 - 31 mmol/L [facility] Creatinine [Mass/Vol] 1.12 mg/dL High 0.50 - 0.90 mg/dL [facility] GFR/1.73 sq M.predicted MDRD (S/P/Bld) [Vol rate/Area] 51 mL/min/{1.73_m2} Low - PINF [facility] Comment on above: These results are [...] 97 mg/dL 70 - 99 mg/dL [facility] Interpretation and review of laboratory results Abnormal [facility] Potassium [Moles/Vol] 4.1 mmol/L 3.7 - 5.3 mmol/L [facility] Protein [Mass/Vol] 6.7 g/dL 6.4 - 8.3 g/dL [facility] [facility] Sodium [Moles/Vol] 139 mmol/L 135 - 144 mmol/L [facility] Urea nitrogen [Mass/Vol] 32 mg/dL High 8 - 23 mg/dL [facility] Urea nitrogen/Creatinine [Mass ratio] 29 mg/mg High 9 - 20 [facility] Microscopic Urinalysison - [facility] Epithelial cells LM.HPF (Urine sed) [#/Area] 0 TO 2 /HPF [facility] RBC LM.HPF (Urine sed) [#/Area] 0 TO 2 [facility] WBC LM.HPF (Urine sed) [#/Area] NONE SEEN 0 /HPF [facility] Urinalysis[facility] 11-[facility]-2022 Bilirubin Ql (U) Negative NEGATIVE [facility] Clarity (U) Clear Clear [facility] Color (U) Yellow Yellow [facility] Glucose Test strip (U) [Mass/Vol] Negative NEGATIVE [facility] Hemoglobin Auto test strip Ql (U) TRACE Abnormal NEGATIVE [facility] Interpretation and review of laboratory results Abnormal [facility] Ketones (U) [Mass/Vol] Negative NEGATIVE [facility] Leukocyte esterase Test strip Ql (U) Negative NEGATIVE [facility] Nitrite Ql (U) Negative NEGATIVE [facility] pH (U) 6.5 [pH] 5.0 - 8.0 [facility] Protein (U) [Mass/Vol] TRACE Abnormal NEGATIVE [facility] Specific gravity (U) [Rel density] 1.015 1.005 - 1.030 [facility] Urinalysis Comments [facility] Urobilinogen Qn (U) Normal Normal [facility] XR CHEST (2 VW)on 11-25-2022 No acute cardiopulmonary findings. [facility] CONSOLIDATED EXAM: XR CHEST (2 [...] surgical clips. IMPRESSION: No acute cardiopulmonary findings. [employer] Phone: Radiology Study observation (narrative) [employer] Phone: XR CHEST (2 VW)Ordered By: Dejan Zheng on 11-25-2022 [employer] Phone: XR CHEST (2 VW)on 08-29-2022 FINDINGS/IMPRESSION: 1. Normal sized heart. 2. Clear lungs. [facility] CONSOLIDATED EXAM: XR CHEST (2 VW ) HISTORY: Reason for exam:->HTN. COMPARISON: Portable chest 03/31/2020. [facility] CONSOLID[facility] Ishmael Valentin Jr., MD - 08/29/2022 EXAM: XR CHEST (2 VW) HISTORY: Reason for exam:->HTN. COMPARISON: Portable chest 03/31/2020. IMPRESSION: FINDINGS/IMPRESSION: 1. Normal sized heart. 2. Clear lungs. [employer] Phone: Radiology Study observation (narrative) [employer] Phone: XR CHEST (2 VW)Ordered By: Jo Valentin on 08-29-2022 VIANNEY OLVERA [employer] Work Phone: Aspartate aminotransferase [ Enzymatic activity/volume] in Serum or PlasmaOrdered By: Obie Hylton on 08-21-2022 AST [Catalytic activity/Vol] 16 U/L 10-[address] [facility] Automated erythrocytes count in urine sediment (number/area)Ordered By: Obie Hylton on 08-21-2022 RBC Auto (Urine sed) [#/Area] 1-2 [HPF] 0-[address] [facility] Automated leukocytes count i n urine sediment (number/area)Ordered By: Obie Hylton on 08-21-2022 WBC Auto (Urine sed) [#/Area] 5-9 [HPF] 0-[address] [facility] Basophils Auto (Bld) [#/Vol] Ordered By: Obie Hylton on 08-21-2022 Basophils (Bld) [#/Vol] 0.0 10*3/uL 0.0-0.[address] [facility] Basophils/100 WBC Auto (Bld) Ordered By: Obie Hylton on 08-21-2022 Basophils/100 WBC (Bld) 0.3 % . [facility] Bilirubin Test strip Ql (U)O rdered By: Obie Hylton on 08-21-2022 Bilirubin Ql (U) Negative Negative [facility] Body fluid albumin measureme nt (mass/volume)Ordered By: Obie Hylton on 08-21-2022 Albumin (Body fld) [Mass/Vol] 3.6 g/dL 3.2-5.[address] [facility] Cholesterol [Mass/volume] in Serum or PlasmaOrdered By: Kenneth Pascal on 08-21-2022 Cholesterol [Mass/Vol] 120 mg/dL 140-[address] [facility] Comment on above: Chol less than 200 m g/dl low riskChol 201-239 mg/dl borderline riskChol 240 mg/dl and greater high risk Cholesterol in LDL Calc [Mas s/Vol]Ordered By: Kenneth Pascal on 08-21-2022 Cholesterol in LDL [Mass/Vol] 59 mg/dL 0-[address] [facility] Comment on above: LDL ATP III CLASSIFI CATIONLDL less than 100 mg/dL OptimalLDL 100-129 mg/dL Near or above optimalLDL 130-159 mg/dL Borderline highLDL 160-189 mg/dL HighLDL greater than 189 mg/dL Very high Cholesterol in VLDL Calc [Ma ss/Vol]Ordered By: Kenneth Pascal on 08-21-2022 Cholesterol in VLDL [Mass/Vol] 15 mg/dL [facility] Color Auto (U)Ordered By: Cindy Hylton on 08-21-2022 Color (U) Yellow Yellow [facility] Creatinine and Glomerular fi ltration rate.predicted panel (S/P/Bld)Ordered By: Obie Hylton on 08-21-2022 Creatinine [Mass/Vol] 1.19 mg/dL 0.44-1.03 [facility] Eosinophils Auto (Bld) [#/Vo l]Ordered By: Obie Hylton on 08-21-2022 Eosinophils (Bld) [#/Vol] 0.1 10*3/uL 0.0-0.[address] [facility] Eosinophils/100 WBC Auto (Bl d)Ordered By: Obie Hylton on 08-21-2022 Eosinophils/100 WBC (Bld) 1.2 % . [facility] Erythrocyte distribution wid th Auto (RBC) [Ratio]Ordered By: Obie Hylton on 08-21-2022 Erythrocyte distribution width (RBC) [Ratio] 14.5 % 11.9-15.[address] [facility] Erythrocyte sedimentation ra te by Photometric methodOrdered By: Obie Hylton on 08-21-2022 ESR Photometric method (Bld) [Velocity] 9 mm/hr 0-[address] [facility] Estimated glomerular filtrat ion rate (GFR) non- AmericanOrdered By: Obie Hylton on 08-21-2022 GFR/1.73 sq M.predicted among non-blacks MDRD (S/P/Bld) [Vol rate/Area] 44 mL/Min [facility] Globulin Calc (S) [Mass/Vol] Ordered By: Obie Hylton on 08-21-2022 Globulin (S) [Mass/Vol] 2.6 g/dL [facility] Hematocrit Auto (Bld) [Volum e fraction]Ordered By: Obie Hylton on 08-21-2022 Hematocrit (Bld) [Volume fraction] 35.6 % 34.0-46.[address] [facility] Hemoglobin [Mass/volume] in BloodOrdered By: Obie Hylton on 08-21-2022 Hemoglobin (Bld) [Mass/Vol] 11.9 g/dL 11.8-15.[address] [facility] Ketones Auto test strip (U) [Mass/Vol]Ordered By: Obie Hylton on 08-21-2022 Ketones (U) [Mass/Vol] Negative Negative [facility] Laboratory - Chemistry and C hemistry - challengeOrdered By: Kenneth Pascal on 08-21-2022 Magnesium [Mass/Vol] 2.1 mg/dL 1.6-2.6 [facility] - UrinalysisOrder ed By: Obie Hylton on 08-21-2022 Hyaline casts LM Ql (Urine sed) 0-8 [LPF] 0-[address] [facility] Leukocytes [#/volume] correc pepito for nucleated erythrocytes in Blood by Automated counOrdered By: Obie Hylton on 08-21-2022 WBC corrected for nucl RBC Auto (Bld) [#/Vol] 4.7 10*3/uL 3.8-11.[address] [facility] Lymphocytes Auto (Bld) [#/Vo l]Ordered By: Obie Hylton on 08-21-2022 Lymphocytes (Bld) [#/Vol] 1.0 10*3/uL 1.00-4.[address] [facility] Lymphocytes/100 WBC Auto (Bl d)Ordered By: Obie Hylton on 08-21-2022 Lymphocytes/100 WBC (Bld) 21.8 % . [facility] MCH Auto (RBC) [Entitic mass ]Ordered By: Obie Hylton on 08-21-2022 MCH (RBC) [Entitic mass] 33.9 pg 24.7-34.[address] [facility] MCHC Auto (RBC) [Mass/Vol]Or dered By: Obie Hylton on 08-21-2022 MCHC (RBC) [Mass/Vol] 33.5 g/dL 32.0-35.0 [facility] MCV Auto (RBC) [Entitic vol] Ordered By: Obie Hylton on 08-21-2022 MCV (RBC) [Entitic vol] 101.2 fL 80-[address] [facility] Monocytes Auto (Bld) [#/Vol] Ordered By: Obie Warner on 08-21-2022 Monocytes (Bld) [#/Vol] 0.4 10*3/uL 0.0-0.[address] [facility] Monocytes/100 WBC Auto (Bld) Ordered By: Obie Hylton on 08-21-2022 Monocytes/100 WBC (Bld) 8.2 % . [facility] Neutrophils Auto (Bld) [#/Vo l]Ordered By: Obie Hylton on 08-21-2022 Neutrophils (Bld) [#/Vol] 3.2 10*3/uL 1.8-7.[address] [facility] Neutrophils/100 WBC Auto (Bl d)Ordered By: Obie Hylton on 08-21-2022 Neutrophils/100 WBC (Bld) 68.5 % . [facility] Nitrite Test strip Ql (U)Ord ered By: Obie Hylton on 08-21-2022 Nitrite Ql (U) Negative Negative [facility] No Panel InformationOrdered By: Kenneth Pascal on 08-21-2022 25-Hydroxy Vitamin D Total 43.9 ng/mL 30-[address] [facility] Comment on above: VITAMIN D STATUS 25( [place])VITAMIN D RANGE (ng/mL) Deficient <20 Insufficient 20 to <30Sufficient 30 to 100Reference: Jennifer MF,Babs NC, Blank GALLARDO, et al. Evaluation,treatment, and prevention of vitamin D deficiency; an Endocrine Society clinical practice guideline. JCEM. 2010; 96(7):1911-30. No Panel InformationOrdered By: Obie Hylton on 08-21-2022 Estimated GFR () 53 mL/Min [facility] Comment on above: GFR estimated refere nce range: According to KDOQI guidelines, <60 ml/min/1.73m2 is sufficient to diagnose a patient with chronic kidney disease. Pharmacy Creatinine Clearance (Chem N/A [facility] Nucleated erythrocytes [Pres ence] in Blood by Automated countOrdered By: Obie Hylton on 08-21-2022 Nucleated RBC Auto Ql (Bld) 0.2 /100{WBC} 0-0.[address] [facility] Platelet mean volume Auto (B ld) [Entitic vol]Ordered By: Obie Hylton on 08-21-2022 Platelet mean volume (Bld) [Entitic vol] 9.0 fL 6.3-10.[address] [facility] Platelets Auto (Bld) [#/Vol] Ordered By: Obie Hylton on 08-21-2022 Platelets (Bld) [#/Vol] 188 10*3/uL 150-[address] [facility] Protein Auto test strip (U) [Mass/Vol]Ordered By: Obie Hylton on 08-21-2022 Protein (U) [Mass/Vol] Negative Negative [facility] Protein [Mass/volume] in Ser um or PlasmaOrdered By: Obie Hylton on 08-21-2022 Protein [Mass/Vol] 6.2 g/dL 6.1-7.9 [facility] RBC Auto (Bld) [#/Vol]Ordere d By: Obie Hylton on 08-21-2022 RBC (Bld) [#/Vol] 3.52 10*6/uL 3.60-5.[address] [facility] Serum or plasma alanine negro otransferase measurement without P-5'-P (enzymatic activiOrdered By: Obie Hylton on 08-21-2022 ALT No additional P-5'-P [Catalytic activity/Vol] 12 U/L 10-[address] [facility] Serum or plasma albumin/glob ulin mass ratioOrdered By: Obie Hylton on 08-21-2022 Albumin/Globulin [Mass ratio] 1.4 {ratio} [facility] Serum or plasma alkaline glen sphatase measurement (enzymatic activity/volume)Ordered By: Obie Hylton on 08-21-2022 ALP [Catalytic activity/Vol] 58 U/L 32-[address] [facility] Serum or plasma anion gap de terminationOrdered By: Obie Hylton on 08-21-2022 Anion gap [Moles/Vol] 13.5 mmol/L 6.0-15.0 [facility] Serum or plasma calcium olivia urement (mass/volume)Ordered By: Obie Hylton on 08-21-2022 Calcium [Mass/Vol] 9.1 mg/dL 8.2-10.2 [facility] Serum or plasma chloride wilner surement (moles/volume)Ordered By: Obie Hylton on 08-21-2022 Chloride [Moles/Vol] 105 mmol/L 95-114 [facility] Serum or plasma glucose olivia urement (mass/volume)Ordered By: Obie Hylton on 08-21-2022 Glucose [Mass/Vol] 91 mg/dL 70-100 [facility] Comment on above: ADA recommended refe rence rangeRandom Glucose Reference Range is dependent on time and content of last meal. Glucose of more than 200 mg/dL in a nonstressed, ambulatory subject supports the diagnosis of Diabetes Mellitus. Serum or plasma high density lipoprotein (HDL) cholesterol measurementOrdered By: Kenneth Pascal on 08-21-2022 Cholesterol in HDL [Mass/Vol] 45 mg/dL 35-[address] [facility] Comment on above: HDL CHOL ATP-III CLA SSIFICATION Cardiovascular RiskHDL > or equal to 60 mg/dL LOWHDL < 40 mg/dL HIGH Serum or plasma potassium me asurement (moles/volume)Ordered By: Obie Hylton on 08-21-2022 Potassium [Moles/Vol] 4.1 mmol/L 3.5-5.1 [facility] Serum or plasma sodium measu rement (moles/volume)Ordered By: Obie Hylton on 08-21-2022 Sodium [Moles/Vol] 138 mmol/L 136-146 [facility] Serum or plasma total biliru bin measurement (mass/volume)Ordered By: Obie Hylton on 08-21-2022 Bilirubin [Mass/Vol] 0.3 mg/dL 0.3-1.2 [facility] Serum or plasma total carbon dioxide measurement (moles/volume)Ordered By: Obie Hylton on 08-21-2022 CO2 [Moles/Vol] 23.6 mmol/L 22.0-30.0 [facility] Serum or plasma total choles terol/high density lipoprotein (HDL) cholesterol mass ratOrdered By: Kenneth Pascal on 08-21-2022 Cholesterol.total/Cho lesterol in HDL [Mass ratio] 2.7 {ratio} <5.[address] [facility] Serum or plasma urea nitroge n measurement (mass/volume)Ordered By: Obie Hylton on 08-21-2022 Urea nitrogen [Mass/Vol] 25 mg/dL 9- [facility] Specific gravity Auto test s trip (U) [Rel density]Ordered By: Obie Hylton on 08-21-2022 Specific gravity (U) [Rel density] 1.014 1.001-1.[address] [facility] Squamous epithelial cells de tection in urine sediment by light microscopyOrdered By: Obie Hylton on 08-21-2022 Epithelial cells.squamous LM Ql (Urine sed) 5-9 [HPF] 0-[address] [facility] TSH DL <= 0.005 mIU/L QnOrde red By: Kenneth Pascal on 08-21-2022 TSH Qn 1.14 m[IU]/L 0.45-5.[address] [facility] Triglyceride [Mass/volume] i n Serum or PlasmaOrdered By: Kenneth Pascal on 08-21-2022 Triglyceride [Mass/Vol] 78 mg/dL 35-[address] [facility] Comment on above: TRIG ATP III CLASSIF ICATIONTRIG less than 150 mg/dL NormalTRIG 150-199 mg/dL Borderline highTRIG 200-500 mg/dL High TRIG greater than 500 mg/dL Very highStandard traceable to the Center for Disease Conrtrol and Prevention (CDC) test method. Urine bacteria detection by automated methodOrdered By: Obie Hylton on 08-21-2022 Bacteria Auto Ql (U) None seen None Seen [facility] Urine clarity by refractomet ry automatedOrdered By: Obie Hylton on 08-21-2022 Clarity Refractometry automated (U) Clear Clear [facility] Urine glucose measurement by automated test strip (mass/volume)Ordered By: Obie Hylton on 08-21-2022 Glucose Auto test strip (U) [Mass/Vol] Normal mg/dL Normal [facility] Urine hemoglobin detection b y automated test stripOrdered By: Obie Hylton on 08-21-2022 Hemoglobin Auto test strip Ql (U) Trace Negative [facility] Urine leukocyte esterase det ection by automated test stripOrdered By: Obie Hylton on 08-21-2022 Leukocyte esterase Auto test strip Ql (U) 1+ Negative [facility] Urobilinogen Auto test strip (U) [Mass/Vol]Ordered By: Obie Hylton on 08-21-2022 Urobilinogen (U) [Mass/Vol] Normal mg/dL Normal [facility] WBC Auto (Bld) [#/Vol]Ordere d By: Obie Hylton on 08-21-2022 WBC (Bld) [#/Vol] 4.7 10*3/uL 3.8-11.6 [facility] pH Auto test strip (U)Ordere d By: Obie Hylton on 08-21-2022 pH (U) 7.0 [pH] 5.0-9.[address] [facility] CHEMISTRYOrdered By: SYSTEM SYSTEM on 07-10-2022 Anion gap [Moles/Vol] 12 mmol/L Normal 6 - 16 mEq/L [facility] Calcium [Mass/Vol] 8.8 mg/dL Low 8.9 [...] 48 mL/min/1.73 m2 Low >=59mL/min /1.73 m2 [facility] Chem S GFR/1.73 sq M.predicted among non-blacks MDRD (S/P/Bld) [Vol rate/Area] 40 mL/min/1.73 m2 Low >=59mL/min /1.73 m2 [facility] [place] Chem S Glucose [Mass/Vol] 97 mg/dL Normal 55 - 199 mg/dL [facility] Remisol Magnesium [Mass/Vol] 2.2 mg/dL Normal 1.3 - 2 .4 mg/dL [facility] [place] Remisol Potassium [Moles/Vol] 4.4 mmol/L Normal 3.5 - 5.3 mmol/L [facility] [place] Remisol Sodium [Moles/Vol] 140 mmol/L Normal 135 - 145 mmol/L [facility] [place] Remisol Urea nitrogen [Mass/Vol] 37 mg/dL High 5 - 21 mg/dL [facility] [place] Remisol Urea nitrogen/Creatinine [Mass ratio] 28 mg/mg High 10 - 20 [facility] Albumin [Mass/volume] in Ser um or PlasmaOrdered By: Obie Hylton on 02-22-2022 Albumin [Mass/Vol] 3.5 g/dL 3.2-5.5 [facility] Automated erythrocytes count in urine sediment (number/area)Ordered By: Obie Hylton on 02-22-2022 RBC Auto (Urine sed) [#/Area] 3-4 [HPF] 0-[address] [facility] Automated leukocytes count i n urine sediment (number/area)Ordered By: Obie Hylton on 02-22-2022 WBC Auto (Urine sed) [#/Area] 1-2 [HPF] 0-[address] [facility] Basophils Auto (Bld) [#/Vol] Ordered By: Obie Hylton on 02-22-2022 Basophils (Bld) [#/Vol] 0.0 10*3/uL 0.0-0.[address] [facility] Basophils/100 WBC Auto (Bld) Ordered By: Obie Hylton on 02-22-2022 Basophils/100 WBC (Bld) 0.2 % . [facility] Bilirubin Test strip Ql (U)O rdered By: Obie Hylton on 02-22-2022 Bilirubin Ql (U) Negative Negative [facility] Blood hemoglobin measurement (mass/volume)Ordered By: Obie Hylton on 02-22-2022 Hemoglobin (Bld) [Mass/Vol] 12.3 g/dL 11.8-15.[address] [facility] Blood leukocytes automated c ount (number/volume)Ordered By: Obie Hylton on 02-22-2022 WBC (Bld) [#/Vol] 5.1 10*3/uL 4.5-11.0 [facility] Color Auto (U)Ordered By: Cindy scott Warner on 02-22-2022 Color (U) Yellow Yellow [facility] Creatinine and Glomerular fi ltration rate.predicted panel (S/P/Bld)Ordered By: Obie Hylton on 02-22-2022 Creatinine [Mass/Vol] 1.16 mg/dL 0.44-1.03 [facility] Eosinophils Auto (Bld) [#/Vo l]Ordered By: Obie Hylton on 02-22-2022 Eosinophils (Bld) [#/Vol] 0.1 10*3/uL 0.0-0.[address] [facility] Eosinophils/100 WBC Auto (Bl d)Ordered By: Obie Hylton on 02-22-2022 Eosinophils/100 WBC (Bld) 1.4 % . [facility] Erythrocyte distribution wid th Auto (RBC) [Ratio]Ordered By: Obie Hylton on 02-22-2022 Erythrocyte distribution width (RBC) [Ratio] 15.3 % 11.9-15.[address] [facility] Estimated glomerular filtrat ion rate (GFR) non- AmericanOrdered By: Obie Hylton on 02-22-2022 GFR/1.73 sq M.predicted among non-blacks MDRD (S/P/Bld) [Vol rate/Area] 45 mL/Min [facility] Globulin Calc (S) [Mass/Vol] Ordered By: Obie Hylton on 02-22-2022 Globulin (S) [Mass/Vol] 2.5 g/dL [facility] Hematocrit Auto (Bld) [Volum e fraction]Ordered By: Obie Hylton on 02-22-2022 Hematocrit (Bld) [Volume fraction] 36.6 % 34.0-46.[address] [facility] Ketones Auto test strip (U) [Mass/Vol]Ordered By: Obie Hylton on 02-22-2022 Ketones (U) [Mass/Vol] Negative Negative [facility] Laboratory - Hematology and Cell countsOrdered By: Obie Hylton on 02-22-2022 Nucleated RBC/100 WBC (Bld) [Ratio] 0.0 % 0-0.[address] [facility] - UrinalysisOrder ed By: Obie Hylton on 02-22-2022 Hyaline casts LM Ql (Urine sed) None seen [LPF] 0-[address] [facility] Lymphocytes Auto (Bld) [#/Vo l]Ordered By: Obie Hylton on 02-22-2022 Lymphocytes (Bld) [#/Vol] 1.1 10*3/uL 1.00-4.[address] [facility] Lymphocytes/100 WBC Auto (Bl d)Ordered By: Obie Hylton on 02-22-2022 Lymphocytes/100 WBC (Bld) 22.2 % . [facility] MCH Auto (RBC) [Entitic mass ]Ordered By: Obie Hylton on 02-22-2022 MCH (RBC) [Entitic mass] 33.0 pg 24.7-34.[address] [facility] MCHC Auto (RBC) [Mass/Vol]Or dered By: Obie Hylton on 02-22-2022 MCHC (RBC) [Mass/Vol] 33.5 g/dL 32.0-35.0 [facility] MCV Auto (RBC) [Entitic vol] Ordered By: Obie Hylton on 02-22-2022 MCV (RBC) [Entitic vol] 98.5 fL 80-[address] [facility] Monocytes Auto (Bld) [#/Vol] Ordered By: Obie Hylton on 02-22-2022 Monocytes (Bld) [#/Vol] 0.5 10*3/uL 0.0-0.[address] [facility] Monocytes/100 WBC Auto (Bld) Ordered By: Obie Hylton on 02-22-2022 Monocytes/100 WBC (Bld) 9.0 % . [facility] Neutrophils Auto (Bld) [#/Vo l]Ordered By: Obie Hylton on 02-22-2022 Neutrophils (Bld) [#/Vol] 3.5 10*3/uL 1.8-7.[address] [facility] Neutrophils/100 WBC Auto (Bl d)Ordered By: Obie Hylton on 02-22-2022 Neutrophils/100 WBC (Bld) 67.2 % . [facility] Nitrite Test strip Ql (U)Ord ered By: Obie Hylton on 02-22-2022 Nitrite Ql (U) Negative Negative [facility] No Panel InformationOrdered By: Obie Hylton on 02-22-2022 Estimated GFR () 55 mL/Min [facility] Comment on above: GFR estimated refere nce range: According to KDOQI guidelines, <60 ml/min/1.73m2 is sufficient to diagnose a patient with chronic kidney disease. Pharmacy Creatinine Clearance (Chem N/A [facility] Platelet mean volume Auto (B ld) [Entitic vol]Ordered By: Obie Hylton on 02-22-2022 Platelet mean volume (Bld) [Entitic vol] 8.7 fL 6.3-10.[address] [facility] Platelets Auto (Bld) [#/Vol] Ordered By: Obie Hylton on 02-22-2022 Platelets (Bld) [#/Vol] 182 10*3/uL 150-[address] [facility] Protein Auto test strip (U) [Mass/Vol]Ordered By: Obie Hylton on 02-22-2022 Protein (U) [Mass/Vol] Negative Negative [facility] Protein [Mass/volume] in Ser um or PlasmaOrdered By: Obie Hylton on 02-22-2022 Protein [Mass/Vol] 6.0 g/dL 6.1-7.9 [facility] RBC Auto (Bld) [#/Vol]Ordere d By: Obie Hylton on 02-22-2022 RBC (Bld) [#/Vol] 3.72 10*6/uL 3.60-5.[address] [facility] Serum or plasma alanine negro otransferase measurement without P-5'-P (enzymatic activiOrdered By: Obie Hylton on 02-22-2022 ALT No additional P-5'-P [Catalytic activity/Vol] 14 U/L 10-[address] [facility] Serum or plasma albumin/glob ulin mass ratioOrdered By: Obie Hylton on 02-22-2022 Albumin/Globulin [Mass ratio] 1.4 {ratio} [facility] Serum or plasma alkaline glen sphatase measurement (enzymatic activity/volume)Ordered By: Obie Hylton on 02-22-2022 ALP [Catalytic activity/Vol] 54 U/L 32-[address] [facility] Serum or plasma aspartate am inotransferase measurement (enzymatic activity/volume)Ordered By: Obie Hylton on 02-22-2022 AST [Catalytic activity/Vol] 17 U/L 10-[address] [facility] Serum or plasma calcium olivia urement (mass/volume)Ordered By: Obie Hylton on 02-22-2022 Calcium [Mass/Vol] 9.0 mg/dL 8.2-10.2 [facility] Serum or plasma chloride wilner surement (moles/volume)Ordered By: Obie Hylton on 02-22-2022 Chloride [Moles/Vol] 107 mmol/L 95-114 [facility] Serum or plasma glucose olivia urement (mass/volume)Ordered By: Obie Hylton on 02-22-2022 Glucose [Mass/Vol] 90 mg/dL 70-100 [facility] Comment on above: ADA recommended refe rence [...] on 02-22-2022 Potassium [Moles/Vol] 4.2 mmol/L 3.5-5.1 [facility] Serum or plasma sodium measu rement (moles/volume)Ordered By: Obie Hylton on 02-22-2022 Sodium [Moles/Vol] 139 mmol/L 136-146 [facility] Serum or plasma total biliru bin measurement (mass/volume)Ordered By: Obie Hylton on 02-22-2022 Bilirubin [Mass/Vol] 0.5 mg/dL 0.3-1.2 [facility] Serum or plasma total carbon dioxide measurement (moles/volume)Ordered By: Obie Hylton on 02-22-2022 CO2 [Moles/Vol] 24.9 mmol/L 22.0-30.0 [facility] Serum or plasma urea nitroge n measurement (mass/volume)Ordered By: Obie Hylton on 02-22-2022 Urea nitrogen [Mass/Vol] 25 mg/dL 9- [facility] Specific gravity Auto test s trip (U) [Rel density]Ordered By: Obie Hylton on 02-22-2022 Specific gravity (U) [Rel density] 1.015 1.001-1.[address] [facility] Squamous epithelial cells de tection in urine sediment by light microscopyOrdered By: Obie Hylton on 02-22-2022 Epithelial cells.squamous LM Ql (Urine sed) 0-1 [HPF] 0-[address] [facility] Urine bacteria detection by automated methodOrdered By: Obie Hylton on 02-22-2022 Bacteria Auto Ql (U) None seen None Seen [facility] Urine clarity by refractomet ry automatedOrdered By: Obie Hylton on 02-22-2022 Clarity Refractometry automated (U) Clear Clear [facility] Urine glucose measurement by automated test strip (mass/volume)Ordered By: Obie Hylton on 02-22-2022 Glucose Auto test strip (U) [Mass/Vol] Normal mg/dL Normal [facility] Urine hemoglobin detection b y automated test stripOrdered By: Obie Hylton on 02-22-2022 Hemoglobin Auto test strip Ql (U) 1+ Negative [facility] Urine leukocyte esterase det ection by automated test stripOrdered By: Obie Hylton on 02-22-2022 Leukocyte esterase Auto test strip Ql (U) Negative Negative [facility] Urobilinogen Auto test strip (U) [Mass/Vol]Ordered By: Obie Hylton on 02-22-2022 Urobilinogen (U) [Mass/Vol] Normal mg/dL Normal [facility] pH Auto test strip (U)Ordere d By: Obie Hylton on 02-22-2022 pH (U) 6.0 [pH] 5.0-9.[address] [facility] ANA WU DIGITAL SCREEN BILA TERALon 02-01-2022 BI-RADS 1 - Negative, no evidence of malignancy. Normal interval followup in 12 months. OVERALL ASSESSMENT- NEGATIVE A letter of notification will be sent to the patient regarding the results. [facility] RIS CONSOLIDATED HISTORY: Screening. Family history of [...] represent scars.) [facility] CONSOLID[facility] WU DIGITAL SCREEN BILA TERALOrdered By: Ishmael Valentin on 02-01-2022 [employer] Phone: [facility] WU DIGITAL SCREEN BILA TERALon 01-31-2022 Radiology Study observation (narrative) [employer] Phone: XR SHOULDER RIGHT (MIN 2 VIE [...] ([id number]). RIGHT SHOULDER 3 VIEWS: COMPARISON: 08/10/2021. [facility] Norm Mcdonnell MD - 12/02/2021 CLINICAL HISTORY: [...] or other acute bony abnormality is seen. [employer] Phone: XR SHOULDER RIGHT (MIN 2 VIE WS)Ordered By: Norm Mcdonnell on 12-02-2021 [employer] Work Phone: XR SHOULDER RIGHT (MIN 2 VIE WS)on 11-30-2021 Radiology Study observation (narrative) [employer] Work Phone: Microscopic Urinalysison - [facility] Bacteria, UA TRACE Abnormal None [facility] Epithelial Cells UA 0 TO 2 [facility] Interpretation and review of laboratory results Abnormal [facility] RBC, UA 0 TO 2 [facility] WBC, UA 0 TO 2 [facility] Urinalysis with Reflex to Cu ltureon 10-26-2021 Bilirubin Urine Negative NEGATIVE [facility] Color, UA Yellow Yellow [facility] Glucose, Ur Negative NEGATIVE [facility] Interpretation and review of laboratory results Abnormal [facility] Ketones Ql (U) Negative NEGATIVE [facility] Leukocyte esterase Test strip Ql (U) Negative NEGATIVE [facility] Nitrite, Urine Negative NEGATIVE [facility] pH, UA 5.5 [facility] Protein, UA Negative NEGATIVE [facility] Specific [place], UA 1.025 [facility] Turbidity UA Clear Clear [facility] Urine Hgb 2+ Abnormal NEGATIVE [facility] Urobilinogen, Urine Normal Normal [facility] Microscopic Urinalysison - [facility] Bacteria, UA 1+ Abnormal None [facility] Epithelial Cells UA 2 TO 5 /HPF [facility] Interpretation and review of laboratory results Abnormal [facility] RBC, UA 2 TO 5 [facility] WBC, UA 20 TO 50 0 /HPF [facility] Yeast, UA OCCASIONAL Abnormal None [facility] Urinalysison 10-14-2021 Bilirubin Urine Negative NEGATIVE [facility] Color, UA Yellow Yellow [facility] Glucose, Ur Negative NEGATIVE [facility] Interpretation and review of laboratory results Abnormal [facility] Ketones Ql (U) Negative NEGATIVE [facility] Leukocyte esterase Test strip Ql (U) 2+ Abnormal NEGATIVE [facility] Nitrite, Urine Negative NEGATIVE [facility] pH, UA 6.0 [facility] Protein, UA TRACE Abnormal NEGATIVE [facility] Specific [place], UA 1.020 [facility] Turbidity UA Hazy Abnormal Clear [facility] Urinalysis Comments [facility] Urine Hgb 2+ Abnormal NEGATIVE [facility] Urobilinogen, Urine Normal Normal [employer] XR SHOULDER RIGHT (MIN 2 VIE WS)on [...] IMPRESSION: Mild degenerative changes. No acute process. [employer] Phone: Radiology Study observation (narrative) [employer] Phone: XR SHOULDER RIGHT (MIN 2 VIE WS)Ordered By: John Jauregui on 08-10-2021 [employer] Phone: MRI Shoulder w/o Righton MRI Shoulder [...] by Grayson Coronado on 07/12/2021 1110 Normal [facility] [employer] XR SHOULDER RIGHT (MIN 2 VIE WS)Ordered By: Angelito Meyer on 04-27-2021 Degenerative changes not unusual for age at the acromioclavicular joint. [employer] Phone: EXAM: XR SHOULDER RI GHT (MIN 2 VIEWS) HISTORY: M25.511. 75-year-old female right shoulder pain. COMPARISON: None. TECHNIQUE: 3 views right shoulder, 4 images. FINDINGS: Moderate degenerative change acromioclavicular joint. Minimal narrowing glenohumeral joint. Negative for calcific bursitis. [employer] Phone: Magdiel, Mhpn Incoming R adiant Results From [employer] - 04/27/2021 12:21 PM EDT EXAM: XR SHOULDER RIGHT (MIN 2 VIEWS) HISTORY: M25.511. 75-year-old female right shoulder pain. COMPARISON: None. TECHNIQUE: 3 views right shoulder, 4 images. FINDINGS: Moderate degenerative change acromioclavicular joint. Minimal narrowing glenohumeral joint. Negative for calcific bursitis. IMPRESSION: Degenerative changes not unusual for age at the acromioclavicular joint. [employer] Phone: [employer] Phone: CBCOrdered By: Roni Dahl on 01-09-2021 Hematocrit (Bld) [Volume fraction] 33.2 % Low 36 - 46 % [employer] Phone: Hemoglobin.gastrointe stinal spec 1 Ql (Stl) 11.5 g/dL Low 12.0 - 16.0 g/dL [employer] Phone: Interpretation and review of laboratory results Abnormal [employer] Phone: MCH (RBC) [Entitic mass] 31.6 pg 26 - 34 pg [employer] Phone: MCHC (RBC) [Mass/Vol] 34.7 g/dL 31 - 3 7 g/dL [employer] Phone: MCV (RBC) [Entitic vol] 91.2 fL 80 - 100 fL [employer] Phone: NRBC Automated NOT REPORTED per 100 WBC [employer] Phone: Platelet distribution width (Bld) [Ratio] 15.6 % High 12.1 - 15.2 % [employer] Phone: Platelet mean volume (Bld) [Entitic vol] NOT REPORTED 6.0 - 12.0 fL [employer] Phone: Platelets (Bld) [#/Vol] 223 10*3/uL [employer] Phone: RBC (Bld) [#/Vol] 3.64 10*6/uL Low 4.0 - 5.2 m/uL [employer] Phone: WBC (Bld) [#/Vol] 4.1 10*3/uL [employer] Phone: [employer] Phone: CBCOrdered By: Roni Dahl on 12-09-2020 Hematocrit (Bld) [Volume fraction] 34.2 % Low 36 - 46 % [employer] Phone: Hemoglobin.gastrointe stinal spec 1 Ql (Stl) 11.6 g/dL Low 12.0 - 16.0 g/dL [employer] Phone: Interpretation and review of laboratory results Abnormal [employer] Phone: MCH (RBC) [Entitic mass] 30.6 pg 26 - 34 pg [employer] Phone: MCHC (RBC) [Mass/Vol] 33.8 g/dL 31 - 3 7 g/dL [employer] Work Phone: MCV (RBC) [Entitic vol] 90.7 fL 80 - 100 fL [employer] Phone: NRBC Automated NOT REPORTED per 100 WBC [employer] Phone: Platelet distribution width (Bld) [Ratio] 14.1 % 12.1 - 15.2 % [employer] Phone: Platelet mean volume (Bld) [Entitic vol] NOT REPORTED 6.0 - 12.0 fL [employer] Phone: Platelets (Bld) [#/Vol] 365 10*3/uL [employer] Phone: RBC (Bld) [#/Vol] 3.78 10*6/uL Low 4.0 - 5.2 m/uL [employer] Phone: WBC (Bld) [#/Vol] 6.3 10*3/uL [employer] Work Phone: [employer] Work Phone: CBC Auto DifferentialOrdered By: Darryl Sandoval on 11-27-2020 [employer] Eos # 0.16 [employer] [facility] Work Phone: Absolute Immature Granulocyte 0.35 High [employer] Work Phone: Absolute Lymph # 1.23 [employer] [facility] Work Phone: Absolute Davidson # 0.95 [facility] Work Phone: Basophils (Bld) [#/Vol] 10*3/uL [employer] Phone: Basophils/100 WBC (Bld) 0 % 0 - 2 % [employer] Phone: Differential Type NOT REPORTED [employer] Phone: Eosinophils/100 WBC (Bld) 2 % 1 - 4 % [employer] Phone: Hematocrit (Bld) [Volume fraction] 34.3 % Low 36.3 - 47.1 % [employer] Phone: Hemoglobin.gastrointe stinal spec 1 Ql (Stl) 11.0 g/dL Low 11.9 - 15.1 g/dL [employer] Phone: Immature granulocytes/100 WBC (Bld) 5 % High 0 [employer] Phone: Interpretation and review of laboratory results Abnormal [employer] Phone: Lymphocytes/100 WBC (Bld) 16 % Low 24 - 43 % [employer] Phone: MCH (RBC) [Entitic mass] 30.5 pg 25.2 - 33.5 pg [employer] Phone: MCHC (RBC) [Mass/Vol] 32.1 g/dL 28.4 - 34.8 g/dL [employer] Phone: MCV (RBC) [Entitic vol] 95.0 fL 82.6 - 102.9 fL [employer] Phone: Monocytes/100 WBC (Bld) 12 % 3 - 12 % [employer] Phone: NRBC Automated 0.0 0.0 per 100 WBC [employer] Phone: Platelet distribution width (Bld) [Ratio] 13.3 % 11.8 - 14.4 % [employer] Phone: Platelet Estimate NOT REPORTED [employer] Phone: Platelet mean volume (Bld) [Entitic vol] 9.7 fL 8.1 - 13.5 fL [employer] Phone: Platelets (Bld) [#/Vol] 242 10*3/uL [employer] Phone: RBC (Bld) [#/Vol] 3.61 10*6/uL Low 3.95 - 5.11 m/uL [employer] Phone: RBC (Bld) [#/Vol] NOT REPORTED [employer] Phone: Segmented neutrophils/100 WBC (Bld) 65 % 36 - 65 % [employer] Phone: Segs Absolute 5.07 [employer] Work Phone: WBC (Bld) [#/Vol] 7.8 10*3/uL [employer] Phone: WBC (Bld) [#/Vol] NOT REPORTED [employer] Phone: [employer] Phone: COVID-19, RapidOrdered By: Vazquez Sandoval on 11-27-2020 SARS-CoV-2 (COVID-19) RNA JUAQUIN+probe Ql (Unsp spec) Not detected Not Detected [employer] Phone: Comment on above: Rapid NAAT: The [...] management decisions. Fact sheet for Healthcare Providers: https://www.fda.gov/media/604338/download Fact sheet for Patients: https://www.fda.gov/media/171371/download Methodology: Isothermal Nucleic Acid Amplification Specimen Description .NASOPHARYNGEAL SWAB [employer] Phone: [employer] Phone: Comprehensive Metabolic Pane lOrdered By: Darryl Sandoval on 11-27-2020 Albumin [Mass/Vol] 3 g/dL Low 3.5 - 5.2 g/dL [employer] Phone: Albumin/Globulin [Mass ratio] 0.8 {ratio} Low [employer] Phone: ALP (Bld) [Catalytic activity/Vol] 154 U/L High 35 - 104 U/L [employer] Phone: ALT [Catalytic activity/Vol] 45 U/L High 5 - 33 U/L [employer] Phone: Anion gap [Moles/Vol] 11 mmol/L 9 - 17 mmol/L [employer] Phone: AST [Catalytic activity/Vol] 44 U/L High <32 [employer] Phone: Bilirubin [Mass/Vol] 0.35 mg/dL 0.3 - 1 .2 mg/dL [employer] Phone: Calcium [Mass/Vol] 9.4 mg/dL 8.6 - 10. 4 mg/dL [employer] Phone: Chloride [Moles/Vol] 103 mmol/L 98 - 10 7 mmol/L [employer] Phone: CO2 [Moles/Vol] 21 mmol/L 20 - 31 mmol/L [employer] Phone: Creatinine [Mass/Vol] 1 mg/dL High 0.50 - 0.90 mg/dL [employer] Phone: Free PSA/Total PSA [Mass fraction] 7.0 g/dL 6.4 - 8.3 g/dL [employer] Phone: GFR >60 >60 mL/min [employer] Phone: GFR Non- 54 mL/min Low >60 [employer] Phone: Glucose [Mass/Vol] 87 mg/dL 70 - 99 mg/dL [employer] Phone: Interpretation and review of laboratory results Abnormal [employer] Phone: Potassium [Moles/Vol] 4.1 mmol/L 3.7 - 5.3 mmol/L [employer] Phone: Sodium [Moles/Vol] 135 mmol/L 135 - 144 mmol/L [employer] Phone: Urea nitrogen (BldV) [Mass/Vol] 16 mg/dL 8 - 23 mg/dL [employer] Phone: Urea nitrogen/Creatinine (Bld) [Mass ratio] 16 [employer] Phone: [employer] Phone: Laboratory - Chemistry and C hemistry - challengeOrdered By: Darryl Sandoval on 11-27-2020 GFR/1.73 sq M.predicted MDRD (S/P/Bld) [Vol rate/Area] [employer] Phone: Comment on above: Average GFR for 70 o r more years old: 75 mL/min/1.73sq m Chronic Kidney Disease: <60 mL/min/1.73sq m Kidney failure: <15 mL/min/1.73sq m eGFR calculated using average adult body mass. Additional eGFR calculator available at: http://www.MSDSonline.com.eLifestyles/multiple_crcl_2012.htm Stage 1: Some kidney damage normal GFR Stage 2: Mild kidney damage GFR 60-89 Stage 3: Moderate kidney damage GFR 30-59 Stage 4: Severe kidney damage GFR 15-29 Stage 5: Severe kidney damage GFR <15 ESRD - chronic treatment by dialysis or transplant LipaseOrdered By: Darryl farias on 11-27-2020 Lipase [Catalytic activity/Vol] 24 U/L 13 - 60 U/L [employer] Work Phone: [employer] Work Phone: MagnesiumOrdered By: Darryl Sandoval on 11-27-2020 Magnesium [Mass/Vol] 2.3 mg/dL 1.6 - 2 .6 mg/dL [employer] Work Phone: [employer] Work Phone: Urinalysis with MicroscopicO rdered By: Darryl Sandoval on 11-27-2020 - [employer] Phone: Amorphous, UA NOT REPORTED None [employer] [facility] Work Phone: Bacteria, UA TRACE Abnormal None [employer] Work Phone: Bilirubin Urine Negative NEGATIVE [facility] Work Phone: Casts UA NOT REPORTED /LPF [employer] Work Phone: Color, UA YELLOW YELLOW [employer] Work Phone: Crystals, UA NOT REPORTED None /HPF [employer] Work Phone: Epithelial Cells UA 2 TO 5 [employer] Work Phone: Glucose, Ur Negative NEGATIVE [employer] Work Phone: Interpretation and review of laboratory results Abnormal [employer] Work Phone: Ketones Ql (U) Negative NEGATIVE [employer] Work Phone: Leukocyte esterase Test strip Ql (U) Negative NEGATIVE [employer] Work Phone: Mucus, UA TRACE Abnormal None [employer] Work Phone: Nitrite, Urine Negative NEGATIVE [employer] Work Phone: Other Observations UA NOT REPORTED NOT REQ. M [facility] [employer] Work Phone: pH, UA 6.0 [facility] [employer] Work Phone: Protein, UA Negative NEGATIVE [facility] [employer] Work Phone: RBC, UA 2 TO 5 [facility] [employer] Work Phone: Renal Epithelial, UA NOT REPORTED 0 /HPF [employer] Work Phone: Specific [place], UA 1.025 High [facility] [employer] Work Phone: Trichomonas, UA NOT REPORTED None [facility] Work Phone: Turbidity UA CLEAR CLEAR [facility] [employer] Work Phone: Urinalysis Comments NOT REPORTED [facility] [employer] Work Phone: Urine Hgb 1+ Abnormal NEGATIVE [facility] [employer] Work Phone: Urobilinogen, Urine Normal Normal [facility] [employer] Work Phone: WBC, UA 0 TO 2 [facility] [employer] Work Phone: Yeast, UA NOT REPORTED None [facility] [employer] Work Phone: [facility] [employer] Work Phone: Comprehensive Metabolic Pane lOrdered By: Roni Dahl on 11-22-2020 Albumin [Mass/Vol] 3.5 g/dL 3.5 - 5.2 g/dL [employer] Work Phone: Albumin/Globulin Ratio NOT REPORTED [facility] [employer] Work Phone: ALP (Bld) [Catalytic activity/Vol] 67 U/L 35 - 104 U/L [facility] [employer] Work Phone: ALT [Catalytic activity/Vol] 22 U/L 5 - 33 U/L [facility] [employer] Work Phone: Anion gap [Moles/Vol] 7 mmol/L Low 9 - 17 mmol/L [employer] Work Phone: AST [Catalytic activity/Vol] 21 U/L <32 [employer] Phone: Bilirubin [Mass/Vol] 0.35 mg/dL 0.30 - 1.20 mg/dL [employer] Phone: Calcium [Mass/Vol] 8.9 mg/dL 8.6 - 10. 4 mg/dL [employer] Phone: Chloride [Moles/Vol] 103 mmol/L 98 - 10 7 mmol/L [employer] Phone: CO2 [Moles/Vol] 26 mmol/L 20 - 31 mmol/L [employer] Phone: Creatinine [Mass/Vol] 0.98 mg/dL High 0.50 - 0.90 mg/dL [employer] Phone: Free PSA/Total PSA [Mass fraction] 6.3 g/dL Low 6.4 - 8.3 g/dL [employer] Phone: GFR >60 >60 mL/min [employer] Phone: GFR Non- 55 mL/min Low >60 [employer] Phone: GFR/1.73 sq M.predicted MDRD (S/P/Bld) [Vol rate/Area] [employer] Phone: Comment on above: Average GFR for 70 o r more years old: 75 mL/min/1.73sq m Chronic Kidney Disease: <60 mL/min/1.73sq m Kidney failure: <15 mL/min/1.73sq m eGFR calculated using average adult body mass. Additional eGFR calculator available at: http://www.MSDSonline.com.eLifestyles/multiple_crcl_2012.htm GFR/1.73 sq M.predicted MDRD (S/P/Bld) [Vol rate/Area] NOT REPORTED [employer] Phone: Glucose [Mass/Vol] 94 mg/dL 70 - 99 mg/dL [employer] Phone: Interpretation and review of laboratory results Abnormal [employer] Phone: Potassium [Moles/Vol] 3.3 mmol/L Low 3.7 - 5.3 mmol/L [employer] Phone: Sodium [Moles/Vol] 136 mmol/L 135 - 144 mmol/L [employer] Phone: Urea nitrogen (BldV) [Mass/Vol] 16 mg/dL 8 - 23 mg/dL [employer] Phone: Urea nitrogen/Creatinine (Bld) [Mass ratio] 16 [employer] Phone: [employer] Phone: AmylaseOrdered By: Naida estrada on 11-18-2020 Amylase [Catalytic activity/Vol] 141 U/L High 28 - 100 U/L [employer] Phone: Interpretation and review of laboratory results Abnormal [employer] Phone: Basic Metabolic PanelOrdered By: Naida Grissom on 11-18-2020 Anion gap [Moles/Vol] 10 mmol/L 9 - 17 mmol/L [employer] Phone: Calcium [Mass/Vol] 8.9 mg/dL 8.6 - 10. 4 mg/dL [employer] Phone: Chloride [Moles/Vol] 105 mmol/L 98 - 10 7 mmol/L [employer] Phone: CO2 [Moles/Vol] 21 mmol/L 20 - 31 mmol/L [employer] Phone: Creatinine [Mass/Vol] 1.06 mg/dL High 0.50 - 0.90 mg/dL [employer] Phone: GFR >60 >60 mL/min [employer] Phone: GFR Non- 51 mL/min Low >60 [employer] Phone: GFR/1.73 sq M.predicted MDRD (S/P/Bld) [Vol rate/Area] [employer] Phone: Comment on above: Average GFR for 70 o r more years old: 75 mL/min/1.73sq m Chronic Kidney Disease: <60 mL/min/1.73sq m Kidney failure: <15 mL/min/1.73sq m eGFR calculated using average adult body mass. Additional eGFR calculator available at: http://www.[employer]/multiple_crcl_2012.htm GFR/1.73 sq M.predicted MDRD (S/P/Bld) [Vol rate/Area] NOT REPORTED [employer] Phone: Glucose [Mass/Vol] 139 mg/dL High 70 - 99 mg/dL [employer] Phone: Interpretation and review of laboratory results Abnormal [employer] Phone: Potassium [Moles/Vol] 3.4 mmol/L Low 3.7 - 5.3 mmol/L [employer] Phone: Sodium [Moles/Vol] 136 mmol/L 135 - 144 mmol/L [employer] Phone: Urea nitrogen (BldV) [Mass/Vol] 22 mg/dL 8 - 23 mg/dL [employer] Phone: Urea nitrogen/Creatinine (Bld) [Mass ratio] 21 High [employer] Work Phone: [employer] Phone: CBC auto differentialOrdered By: Naida Grissom on 11-18-2020 Absolute Eos # 0.10 [employer] [facility] Work Phone: Absolute Immature Granulocyte NOT REPORTED [employer] Phone: Absolute Lymph # 0.60 Low [employer] [facility] Work Phone: Absolute Davidson # 0.40 [employer] [facility] Work Phone: Basophils (Bld) [#/Vol] 0.00 10*3/uL [employer] Work Phone: Basophils/100 WBC (Bld) 0 % 0 - 2 % [employer] Work Phone: Differential Type YES [facility]alt Work Phone: Eosinophils/100 WBC (Bld) 1 % 0 - 5 % [employer] Work Phone: Hematocrit (Bld) [Volume fraction] 37.6 % 36 - 46 % [employer] Work Phone: Hemoglobin.gastrointe stinal spec 1 Ql (Stl) 12.9 g/dL 12.0 - 16.0 g/dL [employer] Phone: Immature Granulocytes NOT REPORTED 0 % M [employer] Work Phone: Interpretation and review of laboratory results Abnormal [employer] Phone: Lymphocytes/100 WBC (Bld) 8 % Low 15 - 40 % [employer] Work Phone: MCH (RBC) [Entitic mass] 31.8 pg 26 - 34 pg [employer] Phone: MCHC (RBC) [Mass/Vol] 34.4 g/dL 31 - 3 7 g/dL [employer] Phone: MCV (RBC) [Entitic vol] 92.4 fL 80 - 100 fL [employer] Work Phone: Monocytes/100 WBC (Bld) 6 % 4 - 8 % [employer] Work Phone: NRBC Automated NOT REPORTED per 100 WBC [employer] Phone: Platelet distribution width (Bld) [Ratio] 14.1 % 12.1 - 15.2 % [employer] Phone: Platelet Estimate NOT REPORTED [employer] Phone: Platelet mean volume (Bld) [Entitic vol] NOT REPORTED 6.0 - 12.0 fL [employer] Phone: Platelets (Bld) [#/Vol] 179 10*3/uL [employer] Phone: RBC (Bld) [#/Vol] 4.07 10*6/uL 4.0 - 5.2 m/uL [employer] Phone: RBC (Bld) [#/Vol] NOT REPORTED [employer] Phone: Segmented neutrophils/100 WBC (Bld) 85 % High 47 - 75 % [employer] Work Phone: Segs Absolute 5[employer]80 [employer] Work Phone: WBC (Bld) [#/Vol] 6.9 10*3/uL [employer] Phone: WBC (Bld) [#/Vol] NOT REPORTED [employer] Phone: [employer] Phone: Hepatic Function PanelOrdere d By: Naida Grissom on 11-18-2020 Albumin [Mass/Vol] 3.7 g/dL 3.5 - 5.2 g/dL [employer] Phone: Albumin/Globulin Ratio NOT REPORTED [employer] Phone: ALP (Bld) [Catalytic activity/Vol] 84 U/L 35 - 104 U/L [employer] Phone: ALT [Catalytic activity/Vol] 63 U/L High 5 - 33 U/L [employer] Phone: AST [Catalytic activity/Vol] 104 U/L High <32 [employer] Phone: Bilirubin [Mass/Vol] 0.49 mg/dL 0.30 - 1.20 mg/dL [employer] Phone: Bilirubin, Indirect CANNOT BE CALCULATED 0.00 - 1.00 mg/dL [facility] [employer] Work Phone: Bilirubin.indirect [Mass/Vol] mg/dL <0.31 mg/dL [facility] [employer] Phone: Free PSA/Total PSA [Mass fraction] 6.9 g/dL 6.4 - 8.3 g/dL [facility] [employer] Phone: Globulin NOT REPORTED 1.5 - 3.8 g/dL [facility] [employer] Work Phone: Interpretation and review of laboratory results Abnormal [facility] [employer] Work Phone: [facility] [employer] Phone: LipaseOrdered By: Naida field on 11-18-2020 Lipase [Catalytic activity/Vol] 50 U/L 13 - 60 U/L [facility] [employer] Phone: Microscopic UrinalysisOrdere d By: Naida Grissom on 11-18-2020 - [facility] [employer] Work Phone: Amorphous, UA NOT REPORTED None [facility] Work Phone: Bacteria, UA 1+ Abnormal None [facility] Work Phone: Casts UA NOT REPORTED /LPF [facility] [employer] Work Phone: Crystals, UA NOT REPORTED None /HPF [facility] Work Phone: Epithelial Cells UA 0 TO 2 /HPF [facility] [employer] Work Phone: Mucus, UA NOT REPORTED None [facility] Work Phone: Other Observations UA NOT REPORTED NOT REQ. M [facility] [employer] Work Phone: RBC, UA 0 TO 2 [facility] [employer] Work Phone: Renal Epithelial, UA NOT REPORTED 0 /HPF [facility] Work Phone: Trichomonas, UA NOT REPORTED None [facility] Work Phone: WBC, UA 2 TO 5 0 /HPF [employer] Work Phone: Yeast, UA NOT REPORTED None [employer] Phone: No Panel InformationOrdered By: Naida Grissom on 11-18-2020 Interpretation and review of laboratory results Abnormal [employer] Work Phone: [employer] Work Phone: [employer] Work Phone: Urinalysis, reflex to micros copicOrdered By: Naida Grissom on 11-18-2020 Bilirubin Urine Negative NEGATIVE [employer] [facility] Work Phone: Color, UA TARA Abnormal YELLOW [employer] Work Phone: Glucose, Ur Negative NEGATIVE [employer] Work Phone: Ketones Ql (U) Negative NEGATIVE [employer] Work Phone: Leukocyte esterase Test strip Ql (U) 1+ Abnormal NEGATIVE [employer] Work Phone: Nitrite, Urine Negative NEGATIVE [employer] Work Phone: pH, UA 5.0 [employer] Work Phone: Protein, UA Negative NEGATIVE [employer] Work Phone: Specific [place], UA 1.025 [employer] Phone: Turbidity UA CLEAR CLEAR [employer] Work Phone: Urinalysis Comments [employer] Work Phone: Urine Hgb 1+ Abnormal NEGATIVE [employer] Phone: Urobilinogen, Urine Normal Normal [employer] Phone: CBC Auto Differentialon 08-01 Basophils (Bld) [#/Vol] 0.00 10*3/uL [employer] Work Phone: Basophils/100 WBC (Bld) 0 % 0 - 2 % [employer] Work Phone: Differential Type YES [employer] Work Phone: Eosinophils (Bld) [#/Vol] 0.10 10*3/uL [employer] Phone: Eosinophils/100 WBC (Bld) 2 % 0 - 5 % [employer] Phone: Erythrocyte distribution width (RBC) [Ratio] 14.3 % 12.1 - 15.2 % [employer] Phone: Hematocrit (Bld) [Volume fraction] 36.5 % 36 - 46 % [employer] Phone: Hemoglobin (Bld) [Mass/Vol] 12.3 g/dL 12 - 16 g/dL [employer] Phone: Interpretation and review of laboratory results Abnormal [employer] Phone: Lymphocytes (Bld) [#/Vol] 1.20 10*3/uL [employer] Work Phone: Lymphocytes/100 WBC (Bld) 24 % 15 - 40 % [employer] Phone: MCH (RBC) [Entitic mass] 32.7 pg 26 - 34 pg [employer] Phone: MCHC (RBC) [Mass/Vol] 33.9 g/dL 31 - 3 7 g/dL [employer] Phone: MCV (RBC) [Entitic vol] 96.6 fL 80 - 100 fL [employer] Phone: Monocytes (Bld) [#/Vol] 0.50 10*3/uL [employer] Phone: Monocytes/100 WBC (Bld) 9 % High 4 - 8 % [employer] Phone: Platelet mean volume (Bld) [Entitic vol] NOT REPORTED 6 - 12 fL [employer] Phone: Platelets (Bld) [#/Vol] NOT REPORTED [employer] Work Phone: Platelets (Bld) [#/Vol] 223 10*3/uL [employer] Work Phone: RBC (Bld) [#/Vol] 3.77 10*6/uL Low 4 - 5.2 m/uL [employer] Work Phone: RBC morphology finding Nom (Bld) NOT REPORTED [employer] Work Phone: Segmented neutrophils/100 WBC (Bld) 65 % 47 - 75 % [employer] Work Phone: Segs Absolute 3.30 [employer] [employer] Work Phone: WBC (Bld) [#/Vol] 5.1 10*3/uL [employer] Work Phone: WBC (Bld) [#/Vol] NOT REPORTED per 100 WBC [employer] Work Phone: WBC Morphology NOT REPORTED [employer] Work Phone: Comprehensive Metabolic Pane trevor 08-11-2020 Albumin [Mass/Vol] 3.9 g/dL 3.5 - 5.2 g/dL [employer] Phone: Albumin/Globulin [Mass ratio] NOT REPORTED [employer] Work Phone: ALP [Catalytic activity/Vol] 76 U/L 35 - 104 U/L [employer] Work Phone: ALT [Catalytic activity/Vol] 16 U/L 5 - 33 U/L [employer] Phone: Anion gap [Moles/Vol] 10 mmol/L 9 - 17 mmol/L [employer] Phone: AST [Catalytic activity/Vol] 19 U/L <32 [employer] Work Phone: Bilirubin Ql (U) 0.35 mg/dL 0.3 - 1.2 mg/dL [employer] Work Phone: Bun/Cre Ratio 23 High [employer] Work Phone: Calcium [Mass/Vol] 9.9 mg/dL 8.6 - 10. 4 mg/dL [employer] Phone: Chloride [Moles/Vol] 105 mmol/L 98 - 10 7 mmol/L [employer] Phone: CO2 [Moles/Vol] 25 mmol/L 20 - 31 mmol/L [employer] Work Phone: Creatinine [Mass/Vol] 1.14 mg/dL High 0.5 - 0.9 mg/dL [employer] Phone: GFR 56 mL/min Low >60 [employer] Phone: GFR Non- 46 mL/min Low >60 [employer] Phone: GFR/1.73 sq M predicted among non-blacks MDRD (S/P/Bld) [Vol rate/Area] [employer] Phone: Comment on above: Average GFR for 70 o r more years old: 75 mL/min/1.73sq m Chronic Kidney Disease: <60 mL/min/1.73sq m Kidney failure: <15 mL/min/1.73sq m eGFR calculated using average adult body mass. Additional eGFR calculator available at: http://www.MSDSonline.com.eLifestyles/multiple_crcl_2011.htm GFR/1.73 sq M predicted among non-blacks MDRD (S/P/Bld) [Vol rate/Area] NOT REPORTED [employer] Phone: Glucose [Mass/Vol] 98 mg/dL 70 - 99 mg/dL [employer] Phone: Interpretation and review of laboratory results Abnormal [employer] Phone: Potassium [Moles/Vol] 4.3 mmol/L 3.7 - 5.3 mmol/L [employer] Phone: Protein [Mass/Vol] 6.7 g/dL 6.4 - 8.3 g/dL [employer] Phone: Sodium [Moles/Vol] 140 mmol/L 135 - 144 mmol/L [employer] Phone: Urea nitrogen [Mass/Vol] 26 mg/dL High 8 - 23 mg/dL [employer] Phone: Lipid Panelon 08-11-2020 Cholesterol [Mass/Vol] 126 mg/dL <200 [employer] Phone: Comment on above: Cholesterol Guidelines: <200 Desirable 200-240 Borderline >240 Undesirable Cholesterol in HDL [Mass/Vol] 45 mg/dL >40 [employer] Phone: Comment on above: HDL Guidelines: <40 Undesirable 40-59 Borderline >59 Desirable Cholesterol in LDL [Mass/Vol] 62 mg/dL 0 - 130 mg/dL [employer] Phone: Comment on above: LDL Guidelines: <100 Desirable 100-129 Near to/above Desirable 130-159 Borderline >159 Undesirable Direct (measured) LDL and calculated LDL are not interchangeable tests. Cholesterol in VLDL [Mass/Vol] NOT REPORTED 1 - 30 mg/dL [employer] Phone: Cholesterol.total/Cho lesterol in HDL [Mass ratio] 2.8 {ratio} <5 [employer] Phone: Triglyceride [Mass/Vol] 94 mg/dL <150 [employer] Phone: Comment on above: Triglyceride Guidelines: <150 Desirable 150-199 Borderline 200-499 High >499 Very high Based on AHA Guidelines for fasting triglyceride, March 2012. Magnesiumon 08-11-2020 Magnesium [Mass/Vol] 2.1 mg/dL 1.6 - 2 .6 mg/dL [employer] Phone: Otheron 08-11-2020 Immature granulocytes (Bld) [#/Vol] NOT REPORTED [employer] Phone: Patient Fasting?on 1 Patient Fasting? yes Antoinette [employer] Work Phone: TSH with Reflexon 08-11-2020 TSH Qn 2.05 m[IU]/L [employer] Work Phone: Vitamin D 25 Hydroxyon 08-11 Vit D, 25-Hydroxy 50.9 ng/mL 30 - 100 ng/mL [facility] [employer] Work Phone: Comment on above: Reference Range: Vitamin D status Range Deficiency <20 ng/mL Mild Deficiency 20-30 ng/mL Sufficiency 30-100 ng/mL Toxicity >100 ng/mL CBC Auto Differentialon Basophils (Bld) [#/Vol] 0.00 10*3/uL [place] Basophils/100 WBC (Bld) 1 % 0 - 2 % [place] Differential Type YES [facility] [place] Eosinophils (Bld) [#/Vol] 0.10 10*3/uL [place] Eosinophils/100 WBC (Bld) 1 % 0 - 5 % [place] Erythrocyte distribution width (RBC) [Ratio] 14.2 % 12.1 - 15.2 % [place] Hematocrit (Bld) [Volume fraction] 37.4 % 36 - 46 % [place] Hemoglobin (Bld) [Mass/Vol] 12.4 g/dL 12 - 16 g/dL [place] Interpretation and review of laboratory results Abnormal [place] Lymphocytes (Bld) [#/Vol] 1.50 10*3/uL [place] Lymphocytes/100 WBC (Bld) 24 % 15 - 40 % [place] MCH (RBC) [Entitic mass] 32.1 pg 26 - 34 pg [place] MCHC (RBC) [Mass/Vol] 33.2 g/dL 31 - 3 7 g/dL [place] MCV (RBC) [Entitic vol] 96.7 fL 80 - 100 fL [place] Monocytes (Bld) [#/Vol] 0.50 10*3/uL [place] Monocytes/100 WBC (Bld) 9 % High 4 - 8 % [place] Platelet mean volume (Bld) [Entitic vol] NOT REPORTED 6 - 12 fL [place] Platelets (Bld) [#/Vol] 205 10*3/uL [place] Platelets (Bld) [#/Vol] NOT REPORTED [place] RBC (Bld) [#/Vol] 3.87 10*6/uL Low 4 - 5.2 m/uL [place] RBC morphology finding Nom (Bld) NOT REPORTED [place] Segmented neutrophils/100 WBC (Bld) 65 % 47 - 75 % [place] Segs Absolute 4.10 [place] WBC (Bld) [#/Vol] NOT REPORTED per 100 WBC [place] WBC (Bld) [#/Vol] 6.2 10*3/uL [place] WBC Morphology NOT REPORTED [place], [place] CT Head WO Contraston 2019 CT [...] by noncontrast CT. There is intracranial atherosclerosis. [place] [employer], [employer] Incoming R adiant Results From [employer]/Pacs - 03/31/2020 4:[address] head [...] MRI would be recommended for further evaluation. [place] 1. No acute intracra nial abnormality. 2. Stable chronic small vessel ischemic disease. 3. Intracranial atherosclerosis. If the patient has a focal neurologic deficit or there is clinical suspicion for acute cerebrovascular accident, brain MRI would be recommended for further evaluation. [place] Comprehensive Metabolic Pane l w/ Reflex to MGon 03-31-2020 Albumin [Mass/Vol] 4.2 g/dL 3.5 - 5.2 g/dL [place] Albumin/Globulin [Mass ratio] NOT REPORTED [place] ALP [Catalytic activity/Vol] 75 U/L 35 - 104 U/L [place] ALT [Catalytic activity/Vol] 11 U/L 5 - 33 U/L [place] Anion gap [Moles/Vol] 8 mmol/L Low 9 - 17 mmol/L [place] AST [Catalytic activity/Vol] 17 U/L <32 [place] Bilirubin Ql (U) 0.38 mg/dL 0.3 - 1.2 mg/dL [place] Bun/Cre Ratio 21 High [place] Calcium [Mass/Vol] 9.1 mg/dL 8.6 - 10. 4 mg/dL [place] Chloride [Moles/Vol] 98 mmol/L 98 - 10 7 mmol/L [place] CO2 [Moles/Vol] 28 mmol/L 20 - 31 mmol/L [place] Creatinine [Mass/Vol] 1.04 mg/dL High 0.5 - 0.9 mg/dL [place] GFR >60 >60 mL/min [place] GFR Non- 52 mL/min Low >60 [place] GFR/1.73 sq M predicted among non-blacks MDRD (S/P/Bld) [Vol rate/Area] [place] Comment on above: Average GFR for 70 o r more years old: 75 mL/min/1.73sq m Chronic Kidney Disease: <60 mL/min/1.73sq m Kidney failure: <15 mL/min/1.73sq m eGFR calculated using average adult body mass. Additional eGFR calculator available at: http://www.[employer]/multiple_crcl_2012.htm GFR/1.73 sq M predicted among non-blacks MDRD (S/P/Bld) [Vol rate/Area] NOT REPORTED [place] Glucose [Mass/Vol] 94 mg/dL 70 - 99 mg/dL [place] Interpretation and review of laboratory results Abnormal [place] Potassium [Moles/Vol] 4.2 mmol/L 3.7 - 5.3 mmol/L [place] Protein [Mass/Vol] 7.1 g/dL 6.4 - 8.3 g/dL [place] Sodium [Moles/Vol] 134 mmol/L Low 135 - 144 mmol/L [place] Urea nitrogen [Mass/Vol] 22 mg/dL 8 - 23 mg/dL [place] Microscopic Urinalysison Amorphous, UA NOT REPORTED None [place] Bacteria, UA NOT REPORTED None [place], [place] Casts UA NOT REPORTED /LPF [place] Crystals, UA NOT REPORTED None /HPF [place] Epithelial Cells UA 0 TO 2 /HPF [place] Mucus, UA NOT REPORTED None [place] Other Observations UA NOT REPORTED NOT REQ. M [place] RBC (U) [#/Vol] 2 TO 5 [place] Renal Epithelial, UA NOT REPORTED 0 /HPF [place] Trichomonas, UA NOT REPORTED None [facility] [place] WBC, UA 0 TO 2 0 /HPF [place] Yeast, UA NOT REPORTED None [place], [place] - [place] Otheron 03-31-2020 Immature granulocytes (Bld) [#/Vol] NOT REPORTED 0 % [place] TSH with Reflexon 03-31-2020 TSH Qn 1.98 m[IU]/L [place] Troponinon 03-31-2020 Troponin I.cardiac [Mass/Vol] [place] Comment on above: Reference Range: <0.03 [...] diagnosis. Troponin T.cardiac [Mass/Vol] ug/L <0.03 ng/mL [place] Comment on above: Troponin T results c annot be compared to Troponin-I results. Troponin, High Sensitivity NOT REPORTED 0 - 14 ng/L [place] Urinalysis, reflex to micros copicon 03-31-2020 Bilirubin Urine Negative NEGATIVE [place] Color, UA YELLOW YELLOW [place] Glucose, Ur Negative NEGATIVE [place] Interpretation and review of laboratory results Abnormal [place] Ketones Ql (U) Negative NEGATIVE [place] Leukocyte esterase Test strip Ql (U) Negative NEGATIVE [place] Nitrite, Urine Negative NEGATIVE [place] pH, UA 7.0 [place] Protein (U) [Mass/Vol] Negative NEGATIVE [place] Specific [place], UA 1.005 [place], [place] Turbidity UA CLEAR CLEAR [place] Urinalysis Comments [place] Urine Hgb TRACE Abnormal NEGATIVE [place] Urobilinogen, Urine Normal Normal [place] XR CHEST PORTABLEon 03-31-20 20 Negative [facility]. [facility] [place] Magdiel, Mhpn Incoming R adiant Results From [employer]/Pacs - 03/31/2020 2:47 PM EDT EXAM: XR CHEST PORTABLE HISTORY: Reason for exam:->gen weakness 74-year-old female COMPARISON: Chest 07/07/2019 TECHNIQUE: AP portable chest 1424 hours FINDINGS: Heart size normal. Lungs clear. Bony thorax and upper abdomen normal. IMPRESSION: Negative chest. [place] EXAM: XR CHEST STARLA BLE HISTORY: Reason for exam:->gen weakness 74-year-old female COMPARISON: Chest 07/07/2019 TECHNIQUE: AP portable chest 1424 hours FINDINGS: Heart size normal. Lungs clear. Bony thorax and upper abdomen normal. [place] CBC Auto DifferentialOrdered By: Reagan Pascal on 07-07-2019 Absolute Eos # 0.10 [facility] Work Phone: Absolute Immature Granulocyte NOT REPORTED [facility] Work Phone: Absolute Lymph # 1.20 [facility] Work Phone: Absolute Davidson # 0.40 [facility] Work Phone: Basophils (Bld) [#/Vol] 0.00 10*3/uL [facility] Work Phone: Basophils/100 WBC (Bld) 0 % 0 - 2 % [facility] Work Phone: Differential Type YES [facility] Work Phone: Eosinophils/100 WBC (Bld) 2 % 0 - 5 % [facility] Work Phone: Erythrocyte distribution width (RBC) [Ratio] 14.6 % 12.1 - 15.2 % [facility] Work Phone: Hematocrit (Bld) [Volume fraction] 35.9 % Low 36 - 46 % [employer] Phone: Hemoglobin (Bld) [Mass/Vol] 12.2 g/dL 12 - 16 g/dL [employer] Phone: Immature Granulocytes NOT REPORTED 0 % [employer] Phone: Interpretation and review of laboratory results Abnormal [employer] Phone: Lymphocytes/100 WBC (Bld) 28 % 15 - 40 % [employer] Phone: MCH (RBC) [Entitic mass] 33.2 pg 26 - 34 pg [employer] Phone: MCHC (RBC) [Mass/Vol] 34.1 g/dL 31 - 3 7 g/dL [employer] Phone: MCV (RBC) [Entitic vol] 97.3 fL 80 - 100 fL [employer] Phone: Monocytes/100 WBC (Bld) 10 % High 4 - 8 % [employer] Phone: MPV NOT REPORTED 6 - 12 fL [employer] Phone: NRBC Automated NOT REPORTED per 100 WBC [employer] Phone: Platelet Estimate NOT REPORTED [employer] Phone: Platelets (Bld) [#/Vol] 223 10*3/uL [employer] Phone: RBC (Bld) [#/Vol] 3.69 10*6/uL Low 4 - 5.2 m/uL [employer] Phone: RBC morphology finding Nom (Bld) NOT REPORTED [employer] Phone: Segmented neutrophils/100 WBC (Bld) 60 % 47 - 75 % [employer] Phone: Segs Absolute 2.60 [employer] Work Phone: WBC (Bld) [#/Vol] 4.4 10*3/uL [employer] Work Phone: WBC Morphology NOT REPORTED [employer] Work Phone: Comprehensive Metabolic Pane lOrdered By: Reagan Pascal on 07-07-2019 Albumin [Mass/Vol] 4.2 g/dL 3.5 - 5.2 g/dL [employer] Work Phone: Albumin/Globulin Ratio NOT REPORTED [employer] Work Phone: ALP [Catalytic activity/Vol] 66 U/L 35 - 104 U/L [employer] Work Phone: ALT [Catalytic activity/Vol] 9 U/L 5 - 33 U/L [employer] Phone: Anion gap [Moles/Vol] 14 mmol/L 9 - 17 mmol/L [employer] Work Phone: AST [Catalytic activity/Vol] 17 U/L <32 [employer] Phone: Bilirubin [Mass/Vol] 0.32 mg/dL 0.3 - 1 .2 mg/dL [employer] Phone: Bun/Cre Ratio 17 [employer] Work Phone: Calcium [Mass/Vol] 10.2 mg/dL 8.6 - 10. 4 mg/dL [employer] Work Phone: Chloride [Moles/Vol] 103 mmol/L 98 - 10 7 mmol/L [employer] Work Phone: CO2 [Moles/Vol] 24 mmol/L 20 - 31 mmol/L [employer] Work Phone: Creatinine [Mass/Vol] 1.26 mg/dL High 0.5 - 0.9 mg/dL [employer] Work Phone: GFR 50 mL/min Low >60 [employer] Phone: GFR Comment [employer] Phone: Comment on above: Average GFR for 70 o r more years old: 75 mL/min/1.73sq m Chronic Kidney Disease: <60 mL/min/1.73sq m Kidney failure: <15 mL/min/1.73sq m eGFR calculated using average adult body mass. Additional eGFR calculator available at: http://www.[employer]/multiple_crcl_2012.htm GFR Non- 42 mL/min Low >60 [employer] Phone: GFR Staging NOT REPORTED [employer] Work Phone: Glucose [Mass/Vol] 106 mg/dL High 70 - 99 mg/dL [employer] Phone: Interpretation and review of laboratory results Abnormal [employer] Phone: Potassium [Moles/Vol] 3.8 mmol/L 3.7 - 5.3 mmol/L [employer] Phone: Protein [Mass/Vol] 7.4 g/dL 6.4 - 8.3 g/dL [employer] Phone: Sodium [Moles/Vol] 141 mmol/L 135 - 144 mmol/L [employer] Phone: Urea nitrogen [Mass/Vol] 22 mg/dL 8 - 23 mg/dL [employer] Phone: Lipid PanelOrdered By: Reagan Pascal on 07-07-2019 Cholesterol [Mass/Vol] 169 mg/dL <200 [employer] Phone: Comment on above: Cholesterol Guidelines: <200 Desirable 200-240 Borderline >240 Undesirable Cholesterol in HDL [Mass/Vol] 54 mg/dL >40 [employer] Phone: Comment on above: HDL Guidelines: <40 Undesirable 40-59 Borderline >59 Desirable Cholesterol in LDL [Mass/Vol] 91 mg/dL 0 - 130 mg/dL [employer] Phone: Comment on above: LDL Guidelines: <100 Desirable 100-129 Near to/above Desirable 130-159 Borderline >159 Undesirable Direct (measured) LDL and calculated LDL are not interchangeable tests. Cholesterol.total/Cho lesterol in HDL [Mass ratio] 3.1 {ratio} <5 [employer] Phone: Triglyceride [Mass/Vol] 118 mg/dL <150 [employer] Phone: Comment on above: Triglyceride Guidelines: <150 Desirable 150-199 Borderline 200-499 High >499 Very high Based on AHA Guidelines for fasting triglyceride, March 2012. VLDL NOT REPORTED 1 - 30 mg/dL [employer] Phone: MagnesiumOrdered By: Reagan borja on 07-07-2019 Magnesium [Mass/Vol] 2.4 mg/dL 1.6 - 2 .6 mg/dL [employer] Phone: Patient Fasting?Ordered By: Reagan Pascal on 07-07-2019 Patient Fasting? yes [employer] Work Phone: TSH with ReflexOrdered By: Jose Carlos Pascal on 07-07-2019 TSH Qn 2.66 m[IU]/L [employer] Phone: Vitamin D 25 HydroxyOrdered By: Reagan Pascal on 07-07-2019 Vit D, 25-Hydroxy 76.8 ng/mL 30 - 100 ng/mL [employer] Phone: Comment on above: Reference Range: Vitamin D status Range Deficiency <20 ng/mL Mild Deficiency 20-30 ng/mL Sufficiency 30-100 ng/mL Toxicity >100 ng/mL XR CHEST STANDARD (2 VW)Orde red By: Reagan Pascal on 07-07-2019 Stable chest compare d to 05/30/2019. [employer] Phone: EXAM: XR CHEST (2 VW ) HISTORY: Reason for exam:->htn 73-year-old female. COMPARISON: Prior studies, most recent being a two-view chest 05/30/2019 TECHNIQUE: Two-view chest FINDINGS: Surgical clips right upper quadrant abdomen. Heart size normal. Lungs clear. Minimal degenerative change thoracic spine. [employer] Phone: Magdiel, pn Incoming R adiant Results From [employer] - 07/07/2019 10:15 AM EST EXAM: XR CHEST (2 VW) HISTORY: Reason for exam:->htn 73-year-old female. COMPARISON: Prior studies, most recent being a two-view chest 05/30/2019 TECHNIQUE: Two-view chest FINDINGS: Surgical clips right upper quadrant abdomen. Heart size normal. Lungs clear. Minimal degenerative change thoracic spine. IMPRESSION: Stable chest compared to 05/30/2019. [employer] Phone: Clostridium Difficile Toxin/ AntigenOrdered By: Roni Dahl on 04-23-2019 C DIFF AG + TOXIN Negative NEGATIVE Antoinette [facility] [place] Comment on above: No C. difficile anti gen and Toxin Detected. Specimen Description .[facility] Office Visit (SPNSMN) MARY JANE RIOS ([id number]) 1945 [facility] Provider Department03/10/18 9:55 AM ANDREWS FISH NSMN During your visit today, we recorded the following information about you: Pulse Respiration Blood pressure Weight 69/minute 18/minute 130/77 102.1 kg Height 1.626 Jamaica Fish MD 03/10/2018 10:50 AM [facility] SURGERY OUTPATIENT CONSULTSERVICE DATE: 03/10/2018PCP: MARTINEZ Anne PROVIDER:Lanie Prince, [id number] [address]Takvlst requested for an opinion regarding the evaluation [...] TONSIL age 11- PAST SURGICAL HISTORY OF 2004 bowel resection secondary to diverticulitis- PAST SURGICAL [...] : 10:44 AM PAGER:Referring Provider: LANIE PRINCE [[id number]]Allergies As of Date: 03/10/2018 Noted Allergy ReactionGLUTEN FLOUR 03/10/2018 8 - GI Upset 9 - ItchingLEXAPRO (ESCITALOPRAM OXALATE) 08/19/2007 9 - ItchingMORPHINE 07/04/2007SULFA (SULFONAMIDE ANTIBIOTICS) 07/04/2007Date Reviewed: 03/10/2018Reviewed by: Alanna Chang Ma - Fully AssessedReason for Visit: New Patient [172]Primary Visit Diagnosis:Degenerative scoliosis [M41.9]Order(s):XR LUMBAR LIMITED 2V AP/LAT [[id number]] Order #: [id number] FUTUREPrescriptions as of 03/10/2018 Sig: ASPIRIN 81 [...] by ANDREWS FISH MD on 03/10/18 Normal [facility] PROGRESSon 03-10-2018 Protein mass conc HNO ID: [id number] thor: Katelin Hollingsworth RtService: (none)Author Type: (none)Type: Progress NotesFiled: 03/10/2018 11:05 AMNote Text: Radiology Service Progress NotePATIENT NAME: Mary Jane SinghRN: [id number] OF SERVICE: March 10, 2018TIME: 11:04 AMPATIENT IDENTITY VERIFICATION COMPLETED USING TWO (2) METHODS: Patientconfirmed name verbally and Date of .PATIENT GENDER DATA: Female. status: : NoBreastfeeding status: NO.PATIENT RELEVANT IMPLANT DATA REVIEWED: Not ApplicableRADIOLOGY DEPARTMENT: General X-ray: Exam(s) Completed: Spine X-Ray(s):Lumbar AP / LAT / [id number] IV DATA: Not applicableSIGNED BY: Katelin Hollingsworth RtSeptember 2017 11:04 AM Normal [facility] Protein mass conc HNO ID: [id number] thor: Andrews Reaganervice: (none)Author Type: PhysicianType: Progress NotesFiled: 03/10/2018 10:50 AMNote Text:SPINE SURGERY OUTPATIENT CONSULTSERVICE DATE: 03/10/2018PCP: Roni Motta, JOHANNAEFERRING PROVIDER:Lanie Prince, [id number] [place] [address]Emhcocq requested for an opinion regarding the evaluation [...] appendectomy at same time- TOTAL KNEE REPLACEMENT 2004 Knee replacement, total, right kneeNo family history [...] Hidalgo: March 10, 2018 : 10:44 AM PAGER: Normal [facility] XR LUMBAR 2V AP/LATon 2017 XR [...] lordosis, grade 1 spondylolisthesis of L4 upon [id number] bodies: Normal in height. No vertebral fracture.Spine [...] STEIN MD on Mar 10 2018 11:23AM [id number] Normal [facility] Vital Signs Date Time Vital Sign Value Performing Clinician Facility 11-14-2023 22:17-0400 Diastolic blood pressure 85 mm[Hg] Jessica [facility]ar MD [facility] 11-14-2023 22:17-0400 Heart rate 60 /min Jessica Farrar MD [facility] [email or web address] 11-14-2023 22:17-0400 Respiratory rate 17 /min Jessica Farrar MD [facility] 11-14-2023 22:17-0400 SaO2% (BldA) [Mass fraction] 96 % Jessica Farrar MD [facility] 11-14-2023 22:17-0400 Systolic blood pressure 122 mm[Hg] Jessica Farrar MD [facility] [email or web address] 11-14-2023 18:48-0400 Body temperature 98.01 [degF] Jessica Farrar MD Work Phone[facility] [email or web address] 11-14-2023 18:42-0400 Body height 162.6 cm Jessica Farrar MD Work Phone[facility] 11-14-2023 18:42-0400 Body mass index (BMI) [Ratio] 37.08 kg/m2 Jessica Farrar MD Work Phone[facility] 11-14-2023 18:42-0400 Body weight 97.98 kg Jessica Farrar MD Work Phone[facility] 10-23-2023 12:23-0400 Heart rate 79 /min Lexy Tapia MD Work Phone[facility] 10-23-2023 12:23-0400 Respiratory rate 16 /min Lexy Tapia MD Work Phone: [facility] [employer] 10-23-2023 12:23-0400 SaO2% (BldA) [Mass fraction] 97 % Lexy Tapia MD Work Phone: [facility] [employer] 10-23-2023 12:13-0400 Diastolic blood pressure 65 mm[Hg] Lexy Tapia MD Work Phone: [facility] [employer] 10-23-2023 12:13-0400 Systolic blood pressure 100 mm[Hg] Lexy Tapia MD Work Phone: [facility] 10-23-2023 09:46-0400 Body height 160 cm Lexy Tapia MD Work Phone: [facility] [employer] 10-23-2023 09:46-0400 Body mass index (BMI) [Ratio] 38.09 kg/m2 Lexy Tapia MD Work Phone: [facility] [employer] [facility] 10-23-2023 09:46-0400 Body temperature 98.1 [degF] Lexy Tapia MD Work Phone: [facility] 10-23-2023 09:46-0400 Body weight 97.52 kg Lexy Tapia MD Work Phone: [facility] 09-16-2023 15:15-0400 Diastolic blood pressure 67 mm[Hg] Ricardo Sarmini [facility] 09-16-2023 15:15-0400 Heart rate 53 /min Ricardo Sarmini [facility] 09-16-2023 15:15-0400 Respiratory rate 14 /min Ricardo Sarmini [facility] 09-16-2023 15:15-0400 Systolic blood pressure 148 mm[Hg] Ricardo Sarmini [facility] 09-16-2023 15:00-0400 Diastolic blood pressure 81 mm[Hg] Ricardo Sarmini [facility] 09-16-2023 15:00-0400 Heart rate 54 /min Ricardo Sarmini [facility] 09-16-2023 15:00-0400 Systolic blood pressure 153 mm[Hg] Ricardo Sarmini [facility] 09-16-2023 14:55-0400 Diastolic blood pressure 89 mm[Hg] Ricardo Sarmini [facility] 09-16-2023 14:55-0400 Heart rate 60 /min Ricardo Sarmini [facility] 09-16-2023 14:55-0400 Respiratory rate 20 /min Ricardo Sarmini [facility] 09-16-2023 14:55-0400 SaO2% (BldA) [Mass fraction] 100 % Ricardo Sarmini [facility] 09-16-2023 14:55-0400 Systolic blood pressure 135 mm[Hg] Ricardo Sarmini [facility] 09-16-2023 14:44-0400 Body temperature 96.8 [degF] Ricardo Sarmini [facility] 09-16-2023 14:35-0400 Respiratory rate 12 /min Ricardo Sarmini [facility] 09-16-2023 14:25-0400 Respiratory rate 12 /min Ricardo Sarmini [facility] 09-16-2023 14:15-0400 Respiratory rate 12 /min Ricardo Sarmini [facility] 09-16-2023 13:14-0400 Blood Pressure Location Ricardo Sarmini [facility] 09-16-2023 13:14-0400 Body temperature 96.8 [degF] Davion Olivares [facility] 07-01-2023 15:32-0500 Body height 160 cm Monster Mei MD Work Phone: [facility] [employer] 07-01-2023 15:32-0500 Body mass index (BMI) [Ratio] 36.49 kg/m2 Monster Mei MD Work Phone: [facility] [employer] [facility] 07-01-2023 15:32-0500 Body temperature 98.91 [degF] Monster Mei MD Work Phone: [facility] [facility] 07-01-2023 15:32-0500 Body weight 93.44 kg Monster Mei MD Work Phone: [facility] [employer] 07-01-2023 15:32-0500 Diastolic blood pressure 70 mm[Hg] Monster Mei MD Work Phone: [facility] [employer] 07-01-2023 15:32-0500 Heart rate 80 /min Monster Mei MD Work Phone: [facility] 07-01-2023 15:32-0500 Respiratory rate 20 /min Monster Mei MD Work Phone: [facility] [employer] 07-01-2023 15:32-0500 SaO2% (BldA) [Mass fraction] 97 % Monster Mei MD Work Phone: [facility] [employer] 07-01-2023 15:32-0500 Systolic blood pressure 138 mm[Hg] Monster Mei MD Work Phone: [facility] 05-02-2023 08:55-0400 Body height 162.6 cm Grayson Hutchinson Jr., DO Work Phone: [facility] 05-02-2023 08:55-0400 Body mass index (BMI) [Ratio] 36.46 kg/m2 Grayson Hutchinson Jr., DO Work Phone: [facility] 05-02-2023 08:55-0400 Body temperature 97.7 [degF] Grayson Hutchinson Jr. DO Work Phone: [facility] 05-02-2023 08:55-0400 Body weight 96.34 kg Grayson Hutchinson Jr. DO Work Phone: [facility] 05-02-2023 08:55-0400 Diastolic blood pressure 82 mm[Hg] Grayson Hutchinson Jr. DO Work Phone: [facility] 05-02-2023 08:55-0400 Heart rate 72 /min Grayson Hutchinson Jr. DO Work Phone: [facility] 05-02-2023 08:55-0400 Systolic blood pressure 150 mm[Hg] Grayson Hutchinson Jr. DO Work Phone: [facility] 03-19-2023 08:55-0400 Diastolic blood pressure 73 mm[Hg] MD Roni Dahl Work Phone: [facility] 03-19-2023 08:55-0400 Heart rate 63 /min MD Roni Dahl Work Phone: [facility] 03-19-2023 08:55-0400 Respiratory rate 16 /min MD Roni Dahl Work Phone: [facility] 03-19-2023 08:55-0400 SaO2% (BldA) [Mass fraction] 95 % MD Roni Dahl Work Phone: [facility] 03-19-2023 08:55-0400 Systolic blood pressure 141 mm[Hg] MD Roni Dahl Work Phone: [facility] 03-19-2023 08:15-0400 Inhaled oxygen flow rate 3 L/min MD Roni Dahl Work Phone: [facility] 03-19-2023 07:19-0400 Body height 160.02 cm MD Roni Dahl Work Phone: [facility] 03-19-2023 07:19-0400 Body weight 96.61 kg MD Roni Dahl Work Phone: [facility] 03-07-2023 09:20-0400 Body height Mukul Steve Other [employer] Other 03-07-2023 09:20-0400 Body mass index (BMI) [Ratio] 35.99 kg/m2 Mukul Steve Other [employer] Other 03-07-2023 09:20-0400 Body weight 96.62 kg Mukul Wilson Other [employer] Other 03-07-2023 09:20-0400 Diastolic blood pressure 80 mm[Hg] Mukul Wilson Other [employer] Other 03-07-2023 09:20-0400 Systolic blood pressure 152 mm[Hg] Mukul Wilson Other [employer] Other 03-01-2023 12:05-0400 Body height 162.56 cm MD Roni Dahl Work Phone: [facility] 03-01-2023 12:05-0400 Body temperature 98.6 [degF] MD Roni Dahl Work Phone: [facility] 03-01-2023 12:05-0400 Body weight 96.61 kg MD Roni Dahl Work Phone: [facility] 03-01-2023 12:05-0400 Diastolic blood pressure 74 mm[Hg] MD Roni Dahl Work Phone: [facility] 03-01-2023 12:05-0400 Heart rate 59 /min MD Roni Dahl Work Phone: [facility] 03-01-2023 12:05-0400 Respiratory rate 20 /min MD Roni Dahl Work Phone: [facility] 03-01-2023 12:05-0400 SaO2% (BldA) [Mass fraction] 96 % MD Roni Dahl Work Phone: [facility] 03-01-2023 12:05-0400 Systolic blood pressure 143 mm[Hg] MD Roni Dahl Work Phone: [facility] 02-28-2023 12:51-0400 Blood Pressure Location Ricardo Sarmini [facility] 02-28-2023 12:51-0400 Diastolic blood pressure 92 mm[Hg] Ricardo Sarmini [facility] 02-28-2023 12:51-0400 Heart rate 64 /min Ricardo Sarmini [facility] 02-28-2023 12:51-0400 Respiratory rate 16 /min Ricardo Sarmini [facility] 02-28-2023 12:51-0400 SaO2% (BldA) [Mass fraction] 98 % Ricardo Sarmini [facility] 02-28-2023 12:51-0400 Systolic blood pressure 135 mm[Hg] Ricardo Sarmini [facility] 02-08-2023 14:05-0400 Body temperature 98.1 [degF] Roni Dahl MD Work Phone: [facility] 02-08-2023 14:05-0400 Diastolic blood pressure 63 mm[Hg] Roni Dahl MD Work Phone: [employer] 02-08-2023 14:05-0400 Heart rate 59 /min Roni Dahl MD Work Phone: [employer] 02-08-2023 14:05-0400 Respiratory rate 13 /min Roni Dahl MD Work Phone: [facility] [employer] 02-08-2023 14:05-0400 SaO2% (BldA) [Mass fraction] 97 % Roni Dahl MD Work Phone: [employer] 02-08-2023 14:05-0400 Systolic blood pressure 143 mm[Hg] Roni Dahl MD Work Phone: [employer] 01-30-2023 15:30-0400 Body temperature 98.7 [degF] Tara Patel Other [employer] Other 01-30-2023 15:30-0400 Body weight 99.79 kg Tara Patel Other [employer] Other 01-30-2023 15:30-0400 Diastolic blood pressure 70 mm[Hg] Tara Patel Other [employer] Other 01-30-2023 15:30-0400 Respiratory rate 20 /min Tara Patel Other [employer] Other 01-30-2023 15:30-0400 SaO2% (BldA) [Mass fraction] 98 % Tara Patel Other [employer] Other 01-30-2023 15:30-0400 Systolic blood pressure 122 mm[Hg] Traa Patel Other [employer] Other 11-25-2022 12:00-0400 Diastolic blood pressure 75 mm[Hg] Salomon Correa MD Work Phone: [facility] [employer] 11-25-2022 12:00-0400 SaO2% (BldA) [Mass fraction] 99 % Salomon Correa MD Work Phone: [facility] [employer] 11-25-2022 12:00-0400 Systolic blood pressure 140 mm[Hg] Salomon Correa MD Work Phone: [facility] [employer] 11-25-2022 10:30-0400 Heart rate 59 /min Salomon Correa MD Work Phone: [facility] [employer] 11-25-2022 10:30-0400 Respiratory rate 18 /min Salomon Correa MD Work Phone: [facility] [employer] 11-25-2022 10:05-0400 Body temperature 97.9 [degF] Salomon Correa MD Work Phone: [facility] [employer] 11-25-2022 10:04-0400 Body height 162.6 cm Salomon Correa MD Work Phone: [facility] [employer] 11-25-2022 10:04-0400 Body mass index (BMI) [Ratio] 38.16 kg/m2 Salomon Correa MD Work Phone: [facility] [employer] 11-25-2022 10:04-0400 Body weight 100.83 kg Salomon Correa MD Work Phone: [facility] 08-28-2022 12:58-0500 Blood Pressure Location Donna Spencer [facility] 08-28-2022 12:58-0500 Body temperature 97.34 [degF] Donna Spencer [facility] 08-28-2022 12:58-0500 Diastolic blood pressure 72 mm[Hg] Donna Spencer [facility] 08-28-2022 12:58-0500 Heart rate 69 /min Donnabaylee JangJohanna [facility] 08-28-2022 12:58-0500 Systolic blood pressure 114 mm[Hg] Donna Johanna [facility] 07-26-2022 08:55-0500 Diastolic blood pressure 69 mm[Hg] Ferrari SALAM [facility] 07-26-2022 08:55-0500 Heart rate 54 /min Ferrari SALAM [facility] 07-26-2022 08:55-0500 Mean blood pressure 84 mm[Hg] Ferrari SALAM [facility] 07-26-2022 08:55-0500 Respiratory rate 13 /min Ferrari SALAM [facility] 07-26-2022 08:55-0500 SaO2% (BldA) [Mass fraction] 97 % Ferrari SALAM [facility] 07-26-2022 08:55-0500 Systolic blood pressure 114 mm[Hg] Ferrari SALAM [facility] 07-26-2022 08:35-0500 Diastolic blood pressure 71 mm[Hg] Ferrari SALAM [facility] 07-26-2022 08:35-0500 Heart rate 55 /min Ferrari SALAM [facility] 07-26-2022 08:35-0500 Mean blood pressure 84 mm[Hg] Ferrari SALAM [facility] 07-26-2022 08:35-0500 Respiratory rate 17 /min Ferrari SALAM [facility] 07-26-2022 08:35-0500 SaO2% (BldA) [Mass fraction] 100 % Ferrari SALAM [facility] 07-26-2022 08:35-0500 Systolic blood pressure 111 mm[Hg] Ferrari SALAM [facility] 07-26-2022 08:30-0500 Diastolic blood pressure 72 mm[Hg] Ferrari SALAM [facility] 07-26-2022 08:30-0500 Heart rate 71 /min Ferrari SALAM [facility] 07-26-2022 08:30-0500 Mean blood pressure 92 mm[Hg] Ferrari SALAM [facility] 07-26-2022 08:30-0500 Respiratory rate 21 /min Ferrari SALAM [facility] 07-26-2022 08:30-0500 SaO2% (BldA) [Mass fraction] 99 % Ferrari SALAM [facility] 07-26-2022 08:30-0500 Systolic blood pressure 131 mm[Hg] Ferrari SALAM [facility] 07-26-2022 08:20-0500 Body temperature 97.7 [degF] Ferrari SALAM [facility] 07-26-2022 07:14-0500 Blood Pressure Location Ferrari SALAM [facility] 07-26-2022 07:14-0500 Body temperature 97.16 [degF] Ferrari SALAM [facility] 07-17-2022 09:53-0500 Diastolic blood pressure 60 mm[Hg] MD Roni Dahl Work Phone: [facility] 07-17-2022 09:53-0500 Heart rate 60 /min MD Roni Dahl Work Phone: [facility] 07-17-2022 09:53-0500 Respiratory rate 16 /min MD Roni Dahl Work Phone: [facility] 07-17-2022 09:53-0500 SaO2% (BldA) [Mass fraction] 97 % MD Roni Dahl Work Phone: [facility] 07-17-2022 09:53-0500 Systolic blood pressure 120 mm[Hg] MD Roni Dahl Work Phone: [facility] 07-17-2022 09:06-0500 Inhaled oxygen flow rate 3 L/min MD Roni Dahl Work Phone: [facility] 07-17-2022 08:22-0500 Body height 162.56 cm MD Roni Dahl Work Phone: [facility] 07-17-2022 08:22-0500 Body weight 99.79 kg MD Roni Dahl Work Phone: [facility] 07-12-2022 09:28-0500 Body temperature 97.7 [degF] Alma Mao DO Work Phone: [employer] 07-12-2022 09:21-0500 Body height 162.6 cm Alma Mao DO Work Phone: [employer] 07-12-2022 09:21-0500 Body mass index (BMI) [Ratio] 37.93 kg/m2 Alma Mao DO Work Phone: [employer] 07-12-2022 09:21-0500 Body weight 100.25 kg Alma Mao DO Work Phone: [employer] 07-12-2022 09:21-0500 Diastolic blood pressure 71 mm[Hg] Alma Mao DO Work Phone: [employer] 07-12-2022 09:21-0500 Heart rate 72 /min Alma Mao DO Work Phone: [facility] 07-12-2022 09:21-0500 Respiratory rate 18 /min Alma Mao DO Work Phone: [facility] 07-12-2022 09:21-0500 SaO2% (BldA) [Mass fraction] 98 % Alma Mao DO Work Phone: [facility] 07-12-2022 09:21-0500 Systolic blood pressure 128 mm[Hg] Alma Mao DO Work Phone: [facility] [email or web address] 07-10-2022 14:16-0500 Blood Pressure Location Donna Spencer [facility] 07-10-2022 14:16-0500 Body temperature 96.8 [degF] Donna Spencer [facility] 07-10-2022 14:16-0500 Diastolic blood pressure 80 mm[Hg] Donna Jangmetz [facility] 07-10-2022 14:16-0500 Heart rate 64 /min Donna Jangmetz [facility] 07-10-2022 14:16-0500 Systolic blood pressure 119 mm[Hg] Donna Jangmetz [facility] 07-03-2022 11:10-0500 Diastolic blood pressure 73 mm[Hg] MD Roni Dahl Work Phone: [facility] 07-03-2022 11:10-0500 Heart rate 56 /min MD Roni Dahl Work Phone: [facility] 07-03-2022 11:10-0500 Respiratory rate 20 /min MD Roni Dahl Work Phone: [facility] 07-03-2022 11:10-0500 SaO2% (BldA) [Mass fraction] 97 % MD Roni Dahl Work Phone: [facility] 07-03-2022 11:10-0500 Systolic blood pressure 136 mm[Hg] MD Roni Dahl Work Phone: [facility] 07-03-2022 10:28-0500 Inhaled oxygen flow rate 3 L/min MD Roni Dahl Work Phone: [facility] 07-03-2022 09:32-0500 Body height 162.56 cm MD Roni Dahl Work Phone: [facility] 07-03-2022 09:32-0500 Body weight 99.79 kg MD Roni Dahl Work Phone: [facility] 05-29-2022 10:13-0500 Diastolic blood pressure 72 mm[Hg] MD Roni Dahl Work Phone: [facility] 05-29-2022 10:13-0500 Heart rate 62 /min MD Roni Dahl Work Phone: [facility] 05-29-2022 10:13-0500 Respiratory rate 20 /min MD Roni Dahl Work Phone: [facility] 05-29-2022 10:13-0500 SaO2% (BldA) [Mass fraction] 97 % MD Roni Dahl Work Phone: [facility] 05-29-2022 10:13-0500 Systolic blood pressure 139 mm[Hg] MD Roni Dahl Work Phone: [facility] 05-29-2022 09:23-0500 Inhaled oxygen flow rate 3 L/min MD Roni Dahl Work Phone: [facility] 05-29-2022 08:38-0500 Body height 162.56 cm MD Roni Dahl Work Phone: [facility] 05-29-2022 08:38-0500 Body weight 100.24 kg MD Roni Dahl Work Phone: [facility] 04-09-2022 11:15-0400 Body weight 101.15 kg Yanelis Garcia Other [facility] [employer] Other 03-27-2022 09:14-0400 Diastolic blood pressure 62 mm[Hg] MD Roni Dahl Work Phone: [facility] 03-27-2022 09:14-0400 Heart rate 57 /min MD Roni Dahl Work Phone: [facility] 03-27-2022 09:14-0400 Respiratory rate 16 /min MD Roni Dahl Work Phone: [facility] 03-27-2022 09:14-0400 SaO2% (BldA) [Mass fraction] 96 % MD Roni Dahl Work Phone: [facility] 03-27-2022 09:14-0400 Systolic blood pressure 121 mm[Hg] MD Roni Dahl Work Phone: [facility] 03-27-2022 08:36-0400 Inhaled oxygen flow rate 3 L/min MD Roni Dahl Work Phone: [facility] 03-27-2022 07:55-0400 Body height 165.1 cm MD Roni Dahl Work Phone: [facility] 03-27-2022 07:55-0400 Body weight 100.24 kg MD Roni Dahl Work Phone: [facility] 10-14-2021 11:07-0400 Body mass index (BMI) [Ratio] 38.77 kg/m2 Lexy Tapia MD Work Phone: [employer] 10-14-2021 11:07-0400 Body temperature 98.2 [degF] Lexy Tapia MD Work Phone: [employer] 10-14-2021 11:07-0400 Body weight 105.69 kg Lexy Tapia MD Work Phone: [employer] 10-14-2021 11:07-0400 Diastolic blood pressure 73 mm[Hg] Lexy Tapia MD Work Phone: [employer] 10-14-2021 11:07-0400 Heart rate 67 /min Lexy Tapia MD Work Phone: [employer] 10-14-2021 11:07-0400 Respiratory rate 16 /min Lexy Tapia MD Work Phone: [employer] 10-14-2021 11:07-0400 SaO2% (BldA) [Mass fraction] 98 % Lexy Tapia MD Work Phone: [employer] 10-14-2021 11:07-0400 Systolic blood pressure 147 mm[Hg] Lexy Tapia MD Work Phone: [employer] 11-27-2020 14:00-0400 Respiratory rate 18 /min Darryl Sandoval MD Work Phone: [employer] Work Phone: 11-27-2020 09:32-0400 SaO2% (BldA) [Mass fraction] 96 % Darryl Sandoval MD Work Phone: [employer] Work Phone: 11-27-2020 09:31-0400 Body temperature 98.1 [degF] Darryl Sandoval MD Work Phone: [employer] Work Phone: 11-27-2020 09:31-0400 Diastolic blood pressure 78 mm[Hg] Darryl Sandoval MD Work Phone: [employer] Work Phone: 11-27-2020 09:31-0400 Heart rate 78 /min Darryl Sandoval MD Work Phone: [employer] Work Phone: 11-27-2020 09:31-0400 Systolic blood pressure 139 mm[Hg] Darryl Sandoval MD Work Phone: [employer] Work Phone: 11-18-2020 09:19-0400 Diastolic blood pressure 57 mm[Hg] Naida Grissom MD Work Phone: [employer] Work Phone: 11-18-2020 09:19-0400 SaO2% (BldA) [Mass fraction] 96 % Naida Grissom MD Work Phone: [employer] Work Phone: 11-18-2020 09:19-0400 Systolic blood pressure 118 mm[Hg] Naida Grissom MD Work Phone: [employer] Work Phone: 11-18-2020 06:45-0400 Body height 165.1 cm Naida Grissom MD Work Phone: [employer] Work Phone: 11-18-2020 06:45-0400 Body mass index (BMI) [Ratio] 37.11 kg/m2 Naida Grissom MD Work Phone: [employer] Work Phone: 11-18-2020 06:45-0400 Body temperature 99.19 [degF] Naiad Grissom MD Work Phone: [employer] Work Phone: 11-18-2020 06:45-0400 Body weight 101.15 kg Naida Grissom MD Work Phone: [employer] Work Phone: 11-18-2020 06:45-0400 Heart rate 87 /min Naida Grissom MD Work Phone: [employer] Work Phone: 11-18-2020 06:45-0400 Respiratory rate 18 /min Naida Grissom MD Work Phone: [facility] Work Phone: 03-31-2020 13:48-0400 BMI (Body Mass Index) 38.79 kg/m2 [facility] [place] 03-31-2020 13:48-0400 Body Temperature 98.49 [degF] [facility] [place] 03-31-2020 13:48-0400 Body weight 102.51 kg [facility] [place] 03-31-2020 13:48-0400 BP Diastolic 99 mm[Hg] [facility] [place] 03-31-2020 13:48-0400 BP Systolic 130 mm[Hg] [facility] [place] 03-31-2020 13:48-0400 Height 162.6 cm [facility] [place] 03-31-2020 13:48-0400 Pulse (Heart Rate) 61 /min [facility] [place] 03-31-2020 13:48-0400 Pulse Oximetry 100 % [facility] [place] 03-31-2020 13:48-0400 Respiratory Rate 18 /min [facility] [place] 05-30-2019 06:47-0500 Pulse Oximetry 100 % [facility] [place] 05-30-2019 06:34-0500 BP Diastolic 44 mm[Hg] [facility] [place] 05-30-2019 06:34-0500 BP Systolic 128 mm[Hg] [facility] [place] 05-30-2019 06:00-0500 BMI (Body Mass Index) 39.86 kg/m2 [facility] [place] 05-30-2019 06:00-0500 Body Temperature 98.8 [degF] [facility] [place] 05-30-2019 06:00-0500 Body weight 102.06 kg [facility] [place] 05-30-2019 06:00-0500 Height 160 cm [facility], [place] 05-30-2019 06:00-0500 Pulse (Heart Rate) 83 /min [facility] [place] 05-30-2019 06:00-0500 Respiratory Rate 20 /min [facility] [place] Encounters Encounter Date Encounter Type Care Provider Facility Start: 03-23-2024 End: 03-23-2024 ambulatory Trevon Harris MD Facility:[facility] Start: 02-17-2024 End: 02-17-2024 ambulatory Roni Dahl MD Facility:[facility] [place] Start: 02-06-2024 End: 02-06-2024 Patient encounter procedure MD Roni Dahl Work Phone: [facility] Work Phone: Start: 02-06-2024 End: 02-06-2024 ambulatory MD Roni Dahl Work Phone: [facility] Work Phone: Start: 02-03-2024 End: 02-03-2024 ambulatory Roni Dahl MD Facility:[facility] Start: 12-19-2023 End: 12-19-2023 Patient encounter procedure MD Roni Dahl Work Phone: [facility] [address] Work Phone: Start: 12-19-2023 End: 12-19-2023 ambulatory MD Roni Dahl Work Phone: [facility] Work Phone: Start: 12-12-2023 End: 12-12-2023 ambulatory RONI DAHL [facility] Start: 11-14-2023 End: 11-14-2023 Emergency department patient visit Jessica Farrar MD Work Phone: [facility] Comment on above: Paroxysmal atrial fi brillation (HCC) (Primary Dx) Start: 10-23-2023 End: 10-25-2023 [facility] Start: 10-23-2023 End: 10-23-2023 Emergency department patient visit Lexy Tapia MD Work Phone: [facility] Comment on above: New onset atrial fib rillation (HCC) (Primary Dx); Atrial fibrillation with RVR (HCC); History of chronic kidney disease; Symptoms of dehydration; Fluid level behind tympanic membrane of both ears; Acute pansinusitis, recurrence not specified; Nausea vomiting and diarrhea Start: 10-22-2023 End: 10-24-2023 ambulatory RONI DAHL [facility] Start: 10-01-2023 End: 10-01-2023 ambulatory RONI DAHL [facility] Start: 09-30-2023 End: 09-30-2023 ambulatory Roni Dahl MD Facility:[facility] Start: 09-19-2023 End: 09-19-2023 Patient encounter procedure MD Roni Dahl Work Phone: [facility] [address] Work Phone: Start: 09-19-2023 End: 09-19-2023 ambulatory MD Roni aDhl Work Phone: [facility] Work Phone: Start: 09-16-2023 End: 09-16-2023 ambulatory Davion Olivares Facility:[facility] [place] Start: 09-16-2023 End: 09-16-2023 Patient encounter procedure Davion Olivares [facility] Start: 09-09-2023 End: 09-09-2023 ambulatory Roni Dahl MD Facility:[facility] Start: 08-26-2023 End: 08-26-2023 ambulatory Roni Dahl MD Facility:[facility] Start: 08-20-2023 End: 08-22-2023 ambulatory [facility] Start: 07-01-2023 End: 07-01-2023 Emergency department patient visit Monster Mei MD Work Phone: [facility] ED Comment on above: COVID-19 virus infec tion (Primary Dx) Start: 05-28-2023 End: 05-28-2023 ambulatory [facility] Start: 05-27-2023 End: 05-27-2023 Patient encounter procedure MD Roni Dahl Work Phone: [facility] [address] Work Phone: Start: 05-27-2023 End: 05-27-2023 ambulatory MD Roni Dahl Work Phone: [facility] Work Phone: Start: 05-22-2023 End: 05-22-2023 ambulatory [facility] Start: 05-20-2023 End: 05-20-2023 ambulatory [facility] Start: 05-16-2023 End: 05-16-2023 ambulatory [facility] Start: 05-13-2023 End: 05-13-2023 ambulatory [facility]HL [facility] Start: 05-09-2023 End: 05-11-2023 ambulatory [facility] Start: 05-09-2023 End: 05-09-2023 ambulatory [facility]HL [facility] Start: 05-07-2023 End: 05-07-2023 ambulatory [facility] L NABILA [facility] Start: 05-02-2023 End: 05-06-2023 ambulatory MARY SUE [facility] Ambulatory Start: 05-02-2023 End: 05-02-2023 Clinical Support [facility] Work Phone: [facility] Comment on above: Sensorineural hearin g loss, bilateral (Primary Dx); Hearing loss, unspecified hearing loss type, unspecified laterality Start: 05-02-2023 End: 05-02-2023 Office outpatient new 45 minutes Grayson Hutchinson DO Work Phone: [facility] Comment on above: Bruxism (teeth grind ing) (Primary Dx); Acute suppurative otitis media of left ear without spontaneous rupture of tympanic membrane, recurrence not specified; ROSETTE on CPAP; Hearing loss, unspecified hearing loss type, unspecified laterality Start: 05-01-2023 End: 05-01-2023 [facility] Start: 04-29-2023 End: 04-29-2023 [facility] Start: 04-13-2023 End: 04-13-2023 Emergency department patient visit [facility] Start: 04-11-2023 End: 04-11-2023 ambulatory XU MARTINEZ [facility] Start: 03-28-2023 End: 03-28-2023 ambulatory LANIE PRINCE [facility] Start: 03-19-2023 End: 03-19-2023 Admission to same day surgery center MD Roni aDhl Work Phone: [facility] Work Phone: Start: 03-19-2023 End: 03-19-2023 ambulatory MD Roni Dahl Work Phone: [facility] Work Phone: Start: 03-14-2023 End: 03-14-2023 ambulatory Yanelis Garcia Other [employer] Other Start: 03-14-2023 Office outpatient vi sit 25 minutes Yanelis POR[facility] [place] Start: 03-14-2023 Telephone encounter [facility] Start: 03-13-2023 End: 03-16-2023 ambulatory [facility]ELIS [facility] Start: 03-13-2023 End: 03-15-2023 Subsequent hospital visit by physician Yanelis Guzman MD Work Phone: [employer] Comment on above: Renal cyst Start: 03-08-2023 End: 03-08-2023 ambulatory Mukul Wilson Other [employer] Other Start: 03-08-2023 Telephone encounter Mukul Wilson [facility] Start: 03-07-2023 Office outpatient ne w 30 minutes Mukul Steve [facility] Neurosurgery Start: 03-07-2023 End: 03-07-2023 Patient encounter procedure MD Roni Dahl Work Phone: [facility] Work Phone: Start: 03-07-2023 End: 03-07-2023 ambulatory MD Roni Dahl Work Phone: [facility] Work Phone: Start: 03-01-2023 End: 03-01-2023 Emergency department patient visit MD Roni Dahl Work Phone: [facility]-Emergency Room Work Phone: Start: 02-28-2023 End: 02-28-2023 ambulatory Ricardo Talal Sarmini Facility:[facility] Start: 02-28-2023 End: 02-28-2023 Patient encounter procedure Ricardo Talal Sarmini [facility] Start: 02-27-2023 End: 03-01-2023 Subsequent hospital visit by physician Roni Dahl MD [facility] Start: 02-27-2023 End: 03-01-2023 ambulatory RONI DAHL [facility] Start: 02-25-2023 End: 02-25-2023 ambulatory Yanelis Garcia Other [employer] Other Start: 02-25-2023 Telephone encounter Yanelis Branch [facility] Start: 02-21-2023 End: 02-21-2023 Patient encounter procedure MD Roni Dahl Work Phone: [facility] [place] Work Phone: Start: 02-21-2023 End: 02-21-2023 ambulatory MD Roni Dahl Work Phone: [facility] Work Phone: Start: 02-14-2023 End: 02-14-2023 ambulatory Yanelis Garcia Other [employer] Other Start: 02-14-2023 Telephone encounter Yanelis Branch [facility] [place] Start: 02-08-2023 Emergency department patient visit ELMER Oz [facility] Start: 02-08-2023 End: 02-08-2023 Emergency department patient visit Roni Dahl MD Work Phone: [facility] ED Comment on above: 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, unspecified back pain laterality (Primary Dx) Start: 02-04-2023 End: 02-04-2023 ambulatory Yanelis Garcia Other [employer] Other Start: 02-04-2023 Telephone encounter Yanelis Branch [facility] Start: 01-30-2023 End: 01-30-2023 ambulatory Tara Patel Other [employer] [facility] [employer] Other Start: 01-30-2023 Office outpatient vi sit 25 minutes Tara Patel [facility] Ur[facility] Start: 12-11-2022 End: 12-12-2022 ambulatory YANELIS GUZMAN [facility] Start: 11-25-2022 End: 11-25-2022 Emergency department patient visit Salomon Correa MD Work Phone: [facility] ED Comment on above: Non-recurrent acute suppurative otitis media of left ear without spontaneous rupture of tympanic membrane (Primary Dx); Acute nonintractable headache, unspecified headache type Start: 08-29-2022 End: 08-31-2022 Subsequent hospital visit by physician Rei Additional Xray At [facility] Radiology Comment on above: Essential hypertensi on; Palpitations; Hypothyroidism, unspecified type; Hyperlipidemia, unspecified hyperlipidemia type; Vitamin D deficiency disease Start: 08-28-2022 End: 08-28-2022 Patient encounter procedure Donna Spencer [facility] Start: 08-21-2022 End: 08-21-2022 ambulatory MD Roni Dahl Work Phone: [facility] Work Phone: Start: 08-21-2022 End: 08-21-2022 Patient encounter procedure MD Roni Dahl Work Phone: [facility] [address] Work Phone: Start: 07-31-2022 Office outpatient vi sit 15 minutes Yanelis PORTER [facility] [place] Start: 07-31-2022 End: 08-01-2022 ambulatory VINNIE YOSELIN [facility] [employer] Other Start: 07-31-2022 End: 08-01-2022 Encounter for other specified special examinations [facility] Start: 07-31-2022 End: 07-31-2022 Subsequent hospital visit by physician Maria R Malhotra PT [facility] Comment on above: Arrived Start: 07-26-2022 End: 07-26-2022 Patient encounter procedure Vonda HERNANDEZ [facility] Start: 07-17-2022 (Procedure) Bj Garcia [facility] Start: 07-17-2022 End: 07-17-2022 Admission to same day surgery center MD Roni Dahl Work Phone: [facility] Work Phone: Start: 07-17-2022 End: 07-17-2022 ambulatory MD Roni Dahl Work Phone: [facility] Work Phone: Start: 07-12-2022 End: 07-12-2022 Emergency department patient visit Alma M Daylin FREIRE Work Phone: [facility] ED Comment on above: Acute pharyngitis, u nspecified etiology (Primary Dx) Start: 07-10-2022 End: 07-10-2022 Patient encounter procedure Donna Spencer [facility] Start: 07-03-2022 (Procedure) Short Yanelis Garcia [facility] Start: 07-03-2022 End: 07-03-2022 Admission to same day surgery center MD Roni Dahl Work Phone: [facility] Work Phone: Start: 07-03-2022 End: 07-03-2022 ambulatory MD Rnoi Dahl Work Phone: [facility] Work Phone: Start: 06-26-2022 End: 06-26-2022 Patient encounter procedure Donna Spencer [facility] Start: 06-14-2022 End: 06-15-2022 ambulatory VINNIEAurelia WYATT [facility] Start: 06-14-2022 End: 06-14-2022 Subsequent hospital visit by physician [facility] Comment on above: Arrived Start: 06-13-2022 End: 06-13-2022 ambulatory Yanelis Garcia Other [employer] Other Start: 06-13-2022 Office outpatient vi sit 25 minutes Yanelis Garcia [facility] [place] Start: 05-29-2022 (Procedure) Short Yanelis Gonzalesjuli [facility] Out[facility] Start: 05-29-2022 End: 05-29-2022 Admission to same day surgery center MD Roni Dahl Work Phone: [facility] Start: 05-29-2022 End: 05-29-2022 ambulatory MD Roni Dahl Work Phone: [facility] Work Phone: Start: 05-22-2022 End: 05-23-2022 ambulatory VINNIEAurelia WYATT [facility]ISHAJEAN [facility] Start: 05-16-2022 End: 05-17-2022 [facility]ulatory [facility] Start: 05-07-2022 End: 05-07-2022 ambulatory MD Roni Dahl Work Phone: [facility] Work Phone: Start: 05-07-2022 End: 05-07-2022 Patient encounter procedure MD Roni Dahl Work Phone: [facility]-MRI [address] Start: 05-02-2022 End: 05-02-2022 ambulatory Yanelis Gonzalesjuli Other [employer] Other Start: 05-02-2022 Office outpatient vi sit 25 minutes Yanelis Garcia [facility] [place] Start: 04-09-2022 End: 04-09-2022 ambulatory Yanelis Garcia Other [employer] Other Start: 04-09-2022 Office outpatient vi sit 25 minutes Yanelis Garcia [facility] [place] Start: 03-27-2022 End: 03-27-2022 Admission to same day surgery center MD Roni Dahl Work Phone: [facility] Start: 03-14-2022 End: 03-14-2022 Patient encounter procedure MD Roni Dahl Work Phone: [facility] Start: 02-22-2022 End: 02-22-2022 Patient encounter procedure MD Roni Dahl Work Phone: [facility] [address] Start: 01-31-2022 End: 02-02-2022 Subsequent hospital visit by physician Rei Mammography Room [facility] Mammography Comment on above: Visit for screening mammogram Start: 12-07-2021 End: 12-07-2021 Patient encounter procedure MD Roni Dahl Work Phone: [facility] Start: 11-30-2021 End: 12-02-2021 Subsequent hospital visit by physician Rei Dig Rad 1 [facility] Radiology Comment on above: H/O repair of right rotator cuff Start: 11-30-2021 End: 12-02-2021 Subsequent hospital visit by physician Roni Dahl MD Work Phone: [facility] Radiology Start: 10-30-2021 End: 10-30-2021 Patient encounter procedure Donna Spencer [facility] Start: 10-26-2021 End: 10-26-2021 Patient encounter procedure Roni Dahl MD Work Phone: [facility] Start: 10-26-2021 End: 10-26-2021 Subsequent hospital visit by physician Roni Dahl MD Work Phone: [facility] Laboratory Comment on above: Women's annual routi ne gynecological examination; Vaginal burning Start: 10-14-2021 End: 10-14-2021 Emergency department patient visit Lexy Tapia MD Work Phone: [facility] ED Comment on above: Acute cystitis with [...] visit by physician Rei Additional Xray At [facility] Radiology Comment on above: History of arthrosco py of right shoulder Start: 06-14-2021 End: 06-14-2021 Subsequent hospital visit by physician Velasquez Martel PTA [facility] Comment on above: Arrived Start: 06-12-2021 End: 06-12-2021 Subsequent hospital visit by physician Rashmi Garcia [facility] Start: 06-12-2021 End: 06-12-2021 Subsequent hospital visit by physician Rei Covid19 Pat Screening Schedule [facility] PRE ADMIT Comment on above: Acute non-recurrent pansinusitis Start: 05-10-2021 End: 05-10-2021 Subsequent hospital visit by physician Velasquez Martel J[employer] [facility] Comment on above: Arrived Start: 05-05-2021 End: 05-05-2021 Subsequent hospital visit by physician Zo Chen PT Work Phone: [facility] Comment on above: Arrived Start: 05-02-2021 End: 05-02-2021 Subsequent hospital visit by physician Rashmi Garcia [facility] Comment on above: Arrived Start: 04-27-2021 End: 04-29-2021 Subsequent hospital visit by physician Rei Dig Rad 1 [facility] Radiology Comment on above: Right shoulder pain, unspecified chronicity Start: 04-27-2021 End: 04-29-2021 Subsequent hospital visit by physician Roni Dahl MD Work Phone: [facility] Radiology Start: 01-20-2021 End: 01-22-2021 Subsequent hospital visit by physician Rei Mammography Room [facility] Mammography Comment on above: Screening mammogram, encounter for Start: 01-09-2021 End: 01-09-2021 Subsequent hospital visit by physician Roni Dahl MD Work Phone: [facility] Comment on above: Low hemoglobin Start: [...] patient visit Naida Grissom MD Work Phone: [facility] ED Comment on above: Nausea vomiting and diarrhea (Primary Dx) Start: 08-11-2020 End: 08-11-2020 Subsequent hospital visit by physician Roni Dahl [facility] Laboratory Comment on above: Essential hypertensi on; Palpitations; Hypothyroidism, unspecified type; Hyperlipidemia, unspecified hyperlipidemia type; Vitamin D deficiency disease Start: 08-09-2020 End: 08-09-2020 Subsequent hospital visit by physician Roni Dahl [facility] RESPIRATORY THERAPY Comment on above: Essential hypertensi on; Palpitations; Hypothyroidism, unspecified type Start: 06-29-2020 End: 06-29-2020 Subsequent hospital visit by physician Breezy Covid Screening Schedule [facility] Covid Screening Comment on above: Acute recurrent pans inusitis; Fever, unspecified fever cause Start: 03-31-2020 End: 03-31-2020 Subsequent hospital visit by physician Roni Dahl [facility] Laboratory Comment on above: Viral illness; Exposure to COVID-19 virus Start: 03-31-2020 End: 03-31-2020 Emergency department patient visit Lexy Tapia Work Phone: [facility] ED Comment on above: General weakness (Pr imary Dx); YANNA (middle ear effusion), bilateral Start: 11-09-2019 End: 11-11-2019 Subsequent hospital visit by physician [facility] Mammography Room [facility] Mammography Comment on above: Visit for screening mammogram Start: 07-07-2019 End: 07-09-2019 Subsequent hospital visit by physician Roni Dahl MD Work Phone: [facility] RESPIRATORY [facility]ERAPY Comment on above: Essential hypertensi on; Pure hypercholesterolemia; Acquired hypothyroidism; Palpitations; Vitamin D deficiency disease Start: 05-30-2019 End: 05-30-2019 Emergency department patient visit Lexy Tapia Work Phone: [facility] ED Comment on above: Acute recurrent fron venkat sinusitis (Primary Dx); Acute middle ear effusion, bilateral Start: 04-23-2019 End: 04-23-2019 Subsequent hospital visit by physician Roni Dahl MD Work Phone: [facility] Comment on above: Diarrhea of presumed infectious origin Start: 03-10-2018 End: 03-10-2018 Patient encounter ANDREWS Murray [facility] Start: 03-10-2018 End: 03-11-2018 Patient encounter ANDREWS Murray [facility] Start: 06-20-2017 End: 06-21-2017 Ambulatory JAMISON OWENS Facility[facility] Procedures Date Procedure Procedure Detail Performing Clinician [...] Radex shoulder complete minimum 2 views Angelito Marquise Meyer DO Work Phone: Start: 10-26-2021 Urinalysis [...] Blood count complete auto&auto difrntl wbc Reagan Pascal Work Phone: Start: 08-11-2020 Comprehensive metabolic panel Reagan mcdowell Work Phone: Start: 08-11-2020 Lipid panel Reagan Pascal Work Phone: Start: 08-11-2020 PATIENT FASTING? Reagan Pascal Work Phone: Start: 08-09-2020 Ecg routine ecg w/least 12 lds w/i&r Reagan Pascal Work Phone: Start: 03-31-2020 Ct head/brain w/o contrast material Lexy Carlson Willie Work Phone: Start: 03-31-2020 Radiologic exam chest single view Zhao Carlson Willie Work Phone: Start: 03-31-2020 Assay of thyroid stimulating hormone tsh Lexy Carlson Willie Work Phone: Start: 03-31-2020 Assay of troponin quantitative Francesco Carlson Willie Work Phone: Start: 03-31-2020 Blood count complete auto&auto difrntl wbc Lexy Cralson Willie Work Phone: Start: 03-31-2020 Urinalysis microscopic only Lexy Carlson Willie Work Phone: Start: 03-31-2020 Urnls dip stick/tablet rgnt auto w/o microscopy Zhaobo Carlson Willie Work Phone: Start: 07-07-2019 Comprehensive metabolic panel Reagan mcdowell MD Work Phone: Start: 07-07-2019 Lipid panel Reagan Pascal MD Work Phone: Start: 07-07-2019 PATIENT FASTING? Reagan Pascal MD Work Phone: Start: 07-07-2019 Radiologic exam chest 2 views Reagan mcdowell MD Work Phone: Start: 06-03-2019 Repair of stress incontinence by suprapubic sling Donna Spencer Start: 05-30-2019 Radiologic exam chest 2 views Marvin r Robyn Tapia Work Phone: Start: 04-23-2019 Toxin/antitoxin assay tissue culture Roni Dahl MD Work Phone: Start: 03-24-2019 Cystourethroscopy with dilation of urethral stricture Donna Spencer Start: 12-12-2015 Epidural injection of lumbar spine using fluoroscopic guidance [employer] Comment on above: L5-S1 60 % immediate relief still contin ues Start: 11-17-2014 Radiofrequency ablation of nerve root of lumbar spine using fluoroscopic guidance [employer] Comment on above: LEFT L2-S1 11/17/14 Rt RFA 70% r elief Start: 11-03-2014 Radiofrequency ablation of nerve root of lumbar spine using fluoroscopic guidance [employer] Comment on above: RIGHT L2-S1 Start: 10-20-2014 Injection of facet joint using fluoroscopic guidance [employer] Comment on above: BILATERAL L3-S1 LUMBAR FACET Start: 08-11-2014 Local anesthetic facet joint nerve block [employer] Comment on above: Bilateral L3-S1 Start: 03-19-2014 Injection of sacroiliac joint using fluoroscopic guidance [employer] Comment on above: Bilateral SIJI Start: 03-23-2013 Injection of sacroiliac joint using fluoroscopic guidance [employer] Comment on above: Bilateral SIJI Start: 11-17-2012 Injection of sacroiliac joint using fluoroscopic guidance [employer] Comment on above: Left SIJI Start: 10-13-2012 Injection of sacroiliac joint using fluoroscopic guidance [employer] Comment on above: Right SIJI Start: 04-30-2012 Endoscopic examination of esophagus, stomach and duodenum [employer] Start: 11-16-2011 Epidural injection of lumbar spine using fluoroscopic guidance [employer] Comment on above: Left L5-S1 Start: 10-05-2011 Epidural injection of lumbar spine using fluoroscopic guidance [employer] Comment on above: Left L5-S1 Start: 08-27-2011 Cystourethroscopy with dilation of urethral stricture Donna Spencer Start: 09-29-2010 Catheterization of right heart Donna Neely nmantoinette Basal cell carcinoma of forehead (disorder) Donna Spencer Decompression of median nerve Donna Spencer Comment on above: RIGHT IN 2002, LEFT 2005 Extraction of cataract Donna Spencer Gastric polypectomy Donna Cloud History of repair of musculotendinous cuff of shoulder H/O repair of right rotator cuff [facility] 1 Repair of ankle Donna Hogue tz Repair of hip Donna Spencer Repair of ligament Donna Neely nmantoinette Comment on above: RIGHT ANKLE Repair of ventral hernia Zaina Spencer Total abdominal hyst erectomy with bilateral salpingo-oophorectomy Donna Spencer Total arthroplasty o f knee, geomedic or polycentric Donna Spencer Comment on above: RIGHT 2005, LEFT 2010 Plan of Treatment Date Care Activity Detail Author Start: 01-18-2026 Colon cancer screen colonoscopy Colon cancer screen colonoscopy [place], [place] Start: 01-18-2026 Screening for malignant neoplasm of colon Colon cancer screen colonoscopy [place], [place] Start: 11-17-2024 End: 11-17-2024 Patient encounter procedure 11/17/2024 10:00 AM EDT Office Visit [facility] UROLOGY Part of [address] [place] [address] John Paul Mayfield, [employer] - SPRINKL[employer] 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 [address] [place] [address] [address] [place] [address] 1 year f/u, [place] prior-(make sure we have results, patient will be going out of town) [facility] UROLOGY Part [facility] Comment on above: 1 year f/u, US prior-(make sure we have results, patient will be going out of town) Start: 08-31-2024 End: 08-31-2024 Patient encounter procedure 08/31/2024 9:00 AM EST Office Visit [facility] Compliance Nurse [address] [place] [phone] Reagan Pascal MD [address] [place] [address] 1 year follow up labs ekg cxr [facility] Compliance Nurse Comment on above: 1 year follow up labs ekg cxr Start: 08-20-2024 Lipid panel Lipids [facility] Start: 08-06-2024 Depression Monitoring Depression Monitoring [facility] Start: 05-07-2024 End: 05-07-2024 Patient encounter procedure 05/07/2024 9:30 AM EST Office Visit [facility] Physicians [address] [place] [address] Grayson Hutchinson Jr., DO [address] [place] [address] [facility] Start: 05-06-2024 Annual Wellness Visit (Medicare) Annual Wellness Visit (Medicare) [facility] Start: 05-06-2024 Depression Monitoring Depression Monitoring [facility] Start: 03-23-2024 End: 03-23-2024 Patient encounter procedure 03/23/2024 11:00 AM EDT Office Visit [facility] UROLOG[facility] Part [address] [place] [address] John Paul Mayfield, [employer]IVER [address] [place] [address] Dr Romo [address] [place] [phone] 1 year f/u, US prior [facility] UROLOG[facility] Part [facility] Comment on above: 1 year f/u, [place] prior Start: 03-20-2024 End: 03-20-2024 Patient encounter procedure 03/20/2024 11:00 AM EDT Office Visit [facility] UROLOG[facility] [address] [place] [id number] John Paul Mayfield, [employer] - [employer]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 [address] [facility] [place] [address] 1 year f/u, [place] prior-(make sure we have results, patient will be going out of town) [facility] Comment on above: 1 year f/u, US prior-(make sure we have results, patient will be going out of town) Start: 03-18-2024 End: 03-18-2024 Patient encounter procedure 03/18/2024 1:00 PM EDT Appointment [facility] Ultrasound [address] [phone] epic/ sched w/ Anastasiya in office [facility] Ultrasound Comment on above: epic/ sched w/ Anastasiya in office Start: 02-11-2024 End: 02-11-2024 Patient encounter procedure 02/11/2024 8:00 AM EDT Office Visit [facility] [address] [place] [phone] Roni Dahl MD [address] [place] [address] Appt Reason: Routine Existing Condition Follow Up [facility] LO[facility] Comment on above: Appt Reason: Routine Existing Condition Follow Up Start: 02-06-2024 Dual energy X-ray absorptiometry XR dexa axial skeleton [facility] Start: 02-06-2024 DXA Skeletal system.axial Views for bone density [facility] Start: 12-31-2023 Tetanus vaccination Tetanus: Every 10yrs [facility] Start: 12-19-2023 Hemolytic complement CH50 level [facility] Start: 12-12-2023 End: 12-12-2023 Patient encounter procedure 12/12/2023 10:00 AM EDT Office Visit [facility] Compliance Nurse [address] [place] [phone] Reagan Pascal MD [address] [place] [address] 3 wk f/u ED tachycardia & event monitor [facility] Compliance Nurse Comment on above: 3 wk f/u ED tachycardia & event monitor Start: 11-14-2023 End: 11-14-2023 Patient encounter procedure 11/14/2023 10:45 AM EDT Procedure visit [facility] [address] [facility] [address] [place] [address] Vadim Peña, PA-C [address] [place] [address] [place] [address] urogram [facility] Urolog Comment on above: cysto after CT urogram Start: 11-01-2023 Depression Monitoring Depression Monitoring [facility] Start: 09-19-2023 Hemolytic complement CH50 [facility] Start: 09-02-2023 End: 09-02-2023 Patient encounter procedure [facility] Compliance Nurse Comment on above: 1 yr f/u lab/ekg/ Start: 08-21-2023 Lipid panel Lipids [facility] Start: 08-06-2023 End: 08-06-2023 Patient encounter procedure 08/06/2023 8:[address] [facility] [address] [place] [phone] Roni Dahl MD [address] [place] [address] 3 mos - Hyperlipidemia, depression, Hypothyroid, gerd, insomnia, sleep apnea, arthritis [facility] Comment on above: 3 mos - Hyperlipidemia, depression, Hypo thyroid, gerd, insomnia, sleep apnea, arthritis Start: 05-27-2023 Hemolytic complement CH50 [facility] Start: 05-09-2023 End: 05-09-2023 Patient encounter procedure 05/09/2023 11:30 AM EST Appointment [facility] [place] [facility] [address] [phone] SELF REF/PT [facility] Mammography Comment on above: SELF REF/PT Start: 05-06-2023 End: 05-06-2023 Patient encounter procedure [facility] Comment on above: Return in about 6 months (around 05/03/20) for Hyperlipidemia, Hypothyroid, depression, gerd, arthritis and MEDICARE wellness Start: 05-04-2023 Annual Wellness Visit (AWV) Annual Wellness Visit (AWV) [facility] [employer] Start: 05-03-2023 Depression Monitoring Depression Monitoring [facility] [address] [email or web address] Start: 05-03-2023 History and physical examination, annual for health maintenance Wellness Visit [facility] Start: 03-22-2023 End: 03-22-2023 Patient encounter procedure [facility] Comment on above: 3 month f/u, US results Start: 03-20-2023 End: 03-20-2023 Patient encounter procedure 03/20/2023 Office Visit [facility] Start: 03-19-[address] [facility] Start: 03-13-2023 End: 03-13-2023 Patient encounter procedure 03/13/2023 Appointment Radiology Yanelis Guzman MD [address], [address] [place] [address] [facility] Ultrasound Start: 03-01-2023 COVID-19 Vaccine ( season) COVID-19 Vaccine ( season) [facility] Start: 03-01-2023 Influenza vaccination Sequential Influenza Vaccine (#1) [facility] Start: 01-29-2023 Influenza vaccination Flu vaccine (#1) [facility] [employer] [facility] Start: 12-21-2022 End: 12-21-2022 Patient encounter procedure 12/21/[facility]22 [facility] Start: 10-31-2022 End: 10-31-2022 Patient encounter procedure 10/31/2022 Office Visit Family Roni Villegas MD [address] [place] [address] [facility] Start: 09-05-2022 COVID-19 Vaccine (5 - Moderna series) COVID-19 Vaccine (5 - Moderna series) [facility] Start: 09-03-2022 End: 09-03-2022 Patient encounter procedure [facility] Compliance Nurse Start: 08-29-2022 Lipid [address] [facility] Start: 08-29-2022 Thyroid stimulating hormone measurement [facility] Start: 08-21-2022 Bacteria identified in Urine by Culture [facility] Start: 08-21-2022 Hemolytic complement CH50 level [facility] Start: 07-31-2022 End: 07-31-2022 Patient encounter procedure 07/31/2022 Appointment Physical Therapy Maria R Malhotra, PT [facility] Start: 07-17-[address] [facility] Start: 07-03-[address] [facility] Start: 07-03-2022 Radiofrequency destruction of peripheral nerve DH Nerve Radio Frequency (Left) [facility] Start: 05-29-[address] [facility] Start: 05-03-2022 Annual Wellness Visit (AWV) Annual Wellness Visit (AWV) [facility] Start: 05-03-2022 End: 05-03-2022 Patient encounter procedure 05/03/2022 Office Visit Family Roni Villegas MD [address] [place] [address] [facility] Start: 05-02-2022 Depression Monitoring Depression Monitoring [facility] Start: 03-27-[address] [facility] Start: 03-01-2022 Influenza vaccination Flu vaccine (#1) [facility] Start: 10-31-2021 End: 10-31-2021 Patient encounter procedure 10/31/2021 Appointment Physical Therapy Zo Chen, PT [address] [place] [address] [facility] Start: 10-26-2021 COVID-19 Vaccine (4 - Booster for Moderna series) COVID-19 Vaccine (4 - Booster for Moderna series) [facility] Start: 10-11-2021 End: 10-11-2021 Patient encounter procedure 10/11/2021 Appointment Physical Therapy Zo Chen, PT [address] [place] [address] [facility] Start: 10-09-2021 End: 10-09-2021 Patient encounter procedure 10/09/2021 Appointment Physical Therapy Velasquez Martel PTA [facility] Start: 10-04-2021 End: 10-04-2021 Patient encounter procedure 10/04/2021 Appointment Physical Therapy Zo Chen, PT [address] [place] [address] [facility] Start: 10-02-2021 End: 10-02-2021 [...] Therapy Zo Chen, PT [address] [place] [address] [facility] Start: 09-15-2021 End: 09-15-2021 Patient encounter procedure 09/15/2021 Appointment Physical Therapy Velasquez Martle PTA [facility] Start: 09-13-2021 End: 09-13-2021 Patient encounter procedure 09/13/2021 Appointment Physical Therapy Velasquez Martel PTA [facility] Start: 09-08-2021 End: 09-08-2021 Patient encounter procedure 09/08/2021 Appointment Physical Therapy Zo Chen, PT [address] [place] [address] [facility] Start: 09-07-2021 Subsequent hospital visit by physician 09/07/2021 Hospital Encounter Physical Therapy Nancy Nunez [facility] Start: 09-05-2021 End: 09-05-2021 Patient encounter procedure 09/05/2021 Appointment Physical Therapy Velasquez Martel PTA [facility] Start: 09-04-2021 End: 09-04-2021 Patient encounter procedure [facility] Compliance Nurse Start: 08-31-2021 End: 08-31-2021 Patient encounter procedure 08/31/2021 Appointment Physical Therapy Velasquez Martel PTA [facility] Start: 08-17-2021 Subsequent hospital visit by physician 08/17/2021 Hospital Encounter Physical Therapy Zo Chen, PT [address] [place] [address] [facility] Start: 08-11-2021 Lipid panel Lipid screen [facility] Start: 08-11-2021 Thyroid stimulating hormone measurement TSH testing [facility] Start: 08-11-2021 TSH Qn TSH testing [facility] Work Phone: Start: 08-02-2021 End: 08-02-[address] [facility] Start: 06-29-2021 End: 06-29-2021 Patient encounter procedure 06/29/2021 Appointment Physical Therapy Zo Chen, PT [address] [place] [address] [facility] Start: 06-26-2021 End: 06-26-2021 Patient encounter procedure 06/26/2021 Appointment Physical Therapy Zo Chen, PT [address] [place] [address] [facility] Start: 06-22-2021 End: 06-22-2021 Patient encounter procedure 06/22/2021 Appointment Physical Therapy Zo Chen, PT [address] [place] [address] [facility] Start: 06-20-2021 End: 06-20-2021 Patient encounter procedure 06/20/2021 Appointment Physical Therapy Zo Chen, PT [address] [place] [address] [facility] Start: 06-14-2021 End: 06-14-2021 Patient encounter procedure 06/14/2021 Appointment Physical Therapy GlynnZo, PT [address] [place] [address] [facility] Start: 05-17-2021 End: 05-17-2021 [...] Patient encounter procedure 05/05/2021 Appointment Physical Therapy GlynnZo, PT [address] [place] [address] [phone] [facility] Start: 05-02-2021 End: 05-02-2021 Patient encounter procedure 05/02/2021 Office Visit Family Medicine Roni Dahl MD [address] [place] [address] [phone] [facility] Start: 05-02-2021 End: 05-02-2021 Patient encounter procedure 05/02/2021 Appointment Physical Therapy Rashmi Garcia [facility] Start: 04-21-2021 Annual Wellness Visit (AWV) Annual Wellness Visit (AWV) [place], [place] Start: 03-31-2021 TSH Qn TSH testing [place], [place] Start: 03-01-2021 Influenza vaccination Flu vaccine (#1) [facility] [employer] Phone: Start: 02-23-2021 COVID-19 Vaccine (3 - Booster for Moderna series) COVID-19 Vaccine (3 - Booster for Moderna series) [facility] Start: 01-30-2021 End: 01-30-2021 Office Visit 01/30/2021 Office Visit Family Medicine Roni Dahl MD [address] [place] [address] [phone] [facility] Start: 01-18-2021 Screening for malignant neoplasm of colon Colon cancer screen colonoscopy [place], [place] Start: 09-06-2020 End: 09-06-2020 Office Visit 09/06/2020 Office Visit Cardiology Reagan Pascal MD [address] [place] [address] [phone] [facility] Compliance Nurse Start: 07-28-2020 End: 07-28-[address] [facility] Start: 07-11-2020 End: 07-11-2020 Office Visit 07/11/2020 Office Visit Cardiology Reagan Pascal MD [address] [place] [address] [phone] [facility] Compliance Nurse Start: 07-07-2020 Lipid panel Lipid screen [place] Start: 07-07-2020 Lipid screen Lipid screen [facility] Work Phone: Start: 07-07-2020 TSH Qn TSH testing [place], [place] Start: 07-07-2020 TSH testing TSH testing [facility] Phone: Start: 05-10-2020 Shingles Vaccine (3 of 3) Shingles Vaccine (3 of 3) [place] Start: 04-14-2020 Annual Wellness Visit (AWV) Annual Wellness Visit (AWV) [place] Start: 04-13-2020 Annual Wellness Visit (AWV) Annual Wellness Visit (AWV) [place] Start: 03-13-2020 Breast cancer screen Breast cancer screen [place] Start: 03-13-2020 Screening for malignant neoplasm of breast Breast cancer screen [place] Start: 01-25-2020 End: 01-25-2020 Office Visit 01/25/2020 Office Visit Family Roni Villegas MD [address] [place], [place] [phone] [facility] Start: 07-30-2019 End: 07-30-2019 Office Visit 07/30/2019 Office Visit Family Roni Villegas MD [address] [place], [place] [phone] [facility] Start: 07-27-2019 End: 07-27-2019 Patient encounter procedure 07/27/2019 Office Visit Family Roni Villegas MD [address] [place], [place] [phone] [facility] Start: 07-13-2019 End: 07-13-2019 Office Visit 07/13/2019 Office Visit Cardiology Reagan Pascal MD [address] [place] [address] [facility] Compliance Nurse Start: 07-09-2019 Lipid screen Lipid [place] Start: 07-09-2019 TSH testing [place]SH [place] Start: 12-31-2013 DTaP/Tdap/Td vaccine (1 - Tdap) DTaP/Tdap/Td vaccine (1 - Tdap) [facility] Start: 12-19-2011 Shingles Vaccine (2 of 3) Shingles Vaccine (2 of 3) [place], [place] Start: 2009 Fall risk assessment Falls Risk Assessment [facility] Start: 2004 Respiratory Syncytial Virus (RSV) or age 60 yrs+ (1 - 1-dose 60+ series) Respiratory Syncytial Virus (RSV) or age 60 yrs+ (1 - 1-dose 60+ series) [facility] Start: 1984 Screening for malignant neoplasm of breast Mammogram [facility] Start: 12-19-1963 DTaP/Tdap/Td vaccine (1 - Tdap) DTaP/Tdap/Td vaccine (1 - Tdap) [place], [place] Start: 1962 Hepatitis C screening [facility] Start: 1960 COVID-19 Vaccine (1 of 2) COVID-19 Vaccine (1 of 2) [place], [place] Start: 1956 Depression screening using PHQ-9 (Patient Health Questionnaire 9) score Depression Screening (PHQ-2/9) [facility] Start: 12-19-1955 DTaP/Tdap/Td vaccine (1 - Tdap) DTaP/Tdap/Td vaccine (1 - Tdap) [place], [place] Start: 1944 Hepatitis C screen Hepatitis C screen [place], [place] Start: 1944 Hepatitis C screening Hepatitis C screen [facility] Start: 1944 Screening for osteoporosis Dexa Scan [facility] Complement C3 [Mass/volume] in Serum or Plasma [facility] Complement C3 [Mass/volume] in Serum or Plasma [facility] Complement C3 [Mass/volume] in Serum or Plasma [facility] Complement C3 [Mass/volume] in Serum or Plasma [facility] Complement C4 [Mass/volume] in Serum or Plasma [facility] Complement C4 [Mass/volume] in Serum or Plasma [facility] Complement C4 [Mass/volume] in Serum or Plasma [facility] Complement C4 [Mass/volume] in Serum or Plasma [facility] End: 06-29-2020 COVID-19 COVID-19 Lab Routine Once for 1 Occurrences starting 06/29/2020 until 06/29/2020 [place] Comment on above: Once for 1 Occurrences starting 06/29/20 20 until 06/29/2020 COVID-19 COVID-19 Lab Rou dane 06/29/2020 11:25 AM EST [place] End: 06-12-2021 COVID-19 [employer] Phone: Comment on above: 1 Occurrences starting 06/12/2021 until 06/12/2021 End: 03-31-2020 Covid-19 Ambulatory Covid-19 Ambulatory Lab Routine Viral illness Exposure to COVID-19 virus 1 Occurrences starting 03/31/2020 until 03/31/2020 [place] Comment on above: 1 Occurrences starting 03/31/2020 until 03/31/2020 Covid-19 Ambulatory Covid-19 Amb ulatory Lab Routine Viral illness Exposure to COVID-19 virus 03/31/2020 1:26 PM EDT [facility] [place] Head WO Contrast CT Head WO C ontrast Imaging STAT 11/25/2022 10:53 AM EDT [employer] Phone: CT SINUS WO CONTRAST CT SINUS WO CONTRAST Imaging STAT 11/25/2022 10:55 AM EDT [employer] Phone: End: 10-26-2021 Culture, Genital [employer] Phone: Comment on above: 1 Occurrences starting 10/26/2021 until 10/26/2021 End: 11-18-2020 Culture, Urine Culture, Urine Microbiology Routine Once for 1 Occurrences starting 11/18/2020 until 11/18/2020 [employer] Phone: Comment on above: Once for 1 Occurrences starting 11/19/19 until 11/18/2020 Culture, Urine Culture, Urine Microbiology Routine 11/18/2020 8:31 AM EDT [employer] Phone: End: 10-14-2021 Culture, Urine [employer] Phone: Comment on above: Once for 1 Occurrences starting 10/15/19 until 10/14/2021 End: 10-26-2021 Cytopathology procedure, preparation of smear, genital source PAP SMEAR Lab Routine Women's annual routine gynecological examination 1 Occurrences starting 10/26/2021 until 10/26/2021 [employer] Phone: Comment on above: 1 Occurrences starting 10/26/2021 until 10/26/2021 EKG 12 Lead [employer] Phone: EKG 12 Lead EKG 12 Lead ECG Routine Essential hypertension Palpitations Hypothyroidism, unspecified type Hyperlipidemia, unspecified hyperlipidemia type Vitamin D deficiency disease 08/29/2021 7:22 AM EST [employer] Phone: EKG 12 Lead EKG 12 Lead ECG STAT 10/23/2023 9:56 AM EDT [employer] EKG 12 Lead EKG 12 Lead ECG STAT 10/23/2023 12:15 PM EDT [employer] EKG 12 Lead EKG 12 Lead ECG Routine 11/14/2023 6:42 PM EDT [employer] End: 11-27-2020 Gastrointestinal Panel, Molecular Gastrointestinal Panel, Molecular Microbiology Routine One Time for 1 Occurrences starting 11/27/2020 until 11/27/2020 [employer] Phone: Comment on above: One Time for 1 Occurrences starting 10/31 until 11/27/2020 Gastrointestinal [place], Molecular Gastrointestinal Panel, Molecular Microbiology STAT 11/27/2020 11:00 AM EDT [employer] Phone: End: 11-09-2019 ANA DIGITAL SCREEN W OR WO CAD BILATERAL ANA DIGITAL SCREEN W OR WO CAD BILATERAL Imaging Routine Visit for screening mammogram 1 Occurrences starting 11/09/2019 until 11/09/2019 [employer] [place] Comment on above: 1 Occurrences starting 11/09/2019 until 11/09/2019 ANA DIGITAL SCREEN W OR WO CAD BILATERAL ANA DIGITAL SCREEN W OR WO CAD BILATERAL Imaging Routine Visit for screening mammogram 11/09/2019 11:37 AM EDT [facility] [place] End: 01-20-2021 ANA WU DIGITAL SCREEN BILATERAL ANA WU DIGITAL SCREEN BILATERAL Imaging Routine Screening mammogram, encounter for 1 Occurrences starting 01/20/2021 until 01/20/[address] [facility] Work Phone: Comment on above: 1 Occurrences starting 01/20/2021 until 01/20/2021 ANA WU DIGITAL SCR EEN BILATERAL ANA WU DIGITAL SCREEN BILATERAL Imaging Routine Screening mammogram, encounter for 01/20/2021 8:26 AM EDT [facility] Work Phone: Patient Education [facility] Work Phone: Patient referral [facility] Work Phone: XR CHEST STANDARD (2 VW) XR CHES T STANDARD (2 VW) Imaging STAT 05/30/2019 6:19 AM EST [facility] [place], [place] Immunizations Immunization Date Immunization Notes Care Provider Fa cili 05-06-2023 Influenza, FLUAD, (a ge 65 y+), Adjuvanted, 0.5mL Monster Mei MD Work Phone: [facility] 05-08-2022 SARS-CoV-2 (COVID-19 ) [id number] Donna Johanna [facility] 05-03-2022 influenza virus vaccine, unspecified formulation Donna Spencer [facility] Comment on above: Result Comment: 2021: VIS DATE: 02/03/2021 05-03-2022 Influenza, FLUAD, (a ge 65 y+), Adjuvanted, 0.5mL Maria R Malhotra PT [facility] Work Phone: 06-27-2021 COVID-19, Moderna, Booster, PF, [facility]mcg[facility] Phone: 05-02-2021 Influenza, Quadv, adjuvanted, 65 yrs +, IM, PF (Fluad) Rashmi Garcia [facility] 08-26-2020 COVID-19, Moderna, Primary or Immunocompromised, PF, 100mcg/0.5mL [facility] Work Phone: 07-29-2020 COVID-19, Moderna, Primary or Immunocompromised, PF, 100mcg/0.5mL [facility] Work Phone: 05-12-2020 zoster vaccine recombinant [facility] Schedule [facility], [place] 03-15-2020 influenza virus vaccine, unspecified formulation Maria R Malhotra PT [facility] [email or web address] Work Phone: 03-15-2020 Influenza, High-dose , Quadv, 65 yrs +, IM (Fluzone) [facility] Schedule [facility], [place] 03-15-2020 influenza, injectabl e, quadrivalent, preservative free [facility] 03-15-2020 zoster vaccine recombinant [facility], [place] 04-14-2019 influenza virus vaccine, unspecified formulation Donna Spencer [facility] Comment on above: Result Comment: 2021: VIS DATE: 02/12/2019 04-14-2019 influenza, injectabl e, quadrivalent, preservative free [facility], [place] 04-07-2018 influenza virus vaccine, unspecified formulation Donna Johanna [facility] Comment on above: Result Comment: 2021: VIS DATE: 02/04/2015 04-07-2018 influenza, injectabl e, quadrivalent, preservative free [facility], [place] 04-10-2017 influenza virus vaccine, unspecified formulation [facility] 05-14-2016 influenza, high dose seasonal, preservative-free [facility] 03-01-2016 pneumococcal conjuga te vaccine, 13 valent [facility] 04-12-2015 influenza virus vaccine, unspecified formulation [facility] 04-24-2014 influenza virus vaccine, unspecified formulation [facility] 04-24-2014 influenza, whole Donna curry [facility] 12-30-2013 Td, unspecified formulation [facility] 12-30-2013 tetanus and diphther ia toxoids, adsorbed, preservative free, for adult use (2 Lf of tetanus toxoid and 2 Lf of diphtheria toxoid) Donna Spencer [facility] 12-30-2013 tetanus and diphther ia toxoids, adsorbed, preservative free, for adult use (5 Lf of tetanus toxoid and 2 Lf of diphtheria toxoid) Monster Mei MD Work Phone: VIANNEY [facility] 07-17-2013 influenza virus vaccine, unspecified formulation [facility] 07-17-2013 influenza, whole Donna curry [facility] 10-24-2011 zoster vaccine, live [place], [place] 03-31-2011 pneumococcal polysaccharide vaccine, 23 valent [place], [place] Payers Date Payer Category Payer Self-pay [id number] 2022 Private Health Insurance [id number] 2020 Private Health Insurance [id number] .[id number] 2020 Private Health Insurance [id number] .[id number] 2014 Medicare MEDICARE MEDICAR E PART A AND B xxxxxxxxxxx 2014-Present [phone] [address] [address] [place] [address] xxxxxxxxxxx [id number] .[id number] 2014 Unknown [facility]USTIN SILVA [facility] xxxxxxxxxx 2014-Present [phone] [address] [place] [address] xxxxxxxxxx [id number] .7.3.843967.315 2014 Unknown [id number] 1.2.840.791740.1.13.239.2 .7.3.130667.315 2009 Medicare [id number]. 1.13.385.2 .[id number] 2009 Medicare [id number] 1.2.840.212562.1.13.239.2 .7.3.788496.315 1944 Unknown [id number] 2.16.840.1.489040.3.579.2 .173 1944 Unknown [id number] 2.16.840.1.606334.3.579.2 .173 1944 Unknown [id number] 2.16.840.1.593492.3.579.2 .173 1944 Unknown [id number] 2.16.840.1.266440.3.579.2 .173 1944 Unknown [id number] 2.16.840.1.340039.3.579.2 .173 1944 Unknown [id number] 2.16.840.1.788883.3.579.2 .173 1944 Unknown [id number] 2.16.840.1.253240.3.579.2 .173 1944 Unknown [id number] 2.16.840.1.437278.3.579.2 .903 1944 Unknown [id number] 2.16.840.1.782750.3.579.2 .903 1944 Unknown [id number] 2.16.840.1.057086.3.579.2 .174 1944 Unknown [id number] 2.16.840.1.020898.3.579.2 .174 1944 Unknown [id number] 2.16.840.1.474028.3.579.2 .174 1944 Unknown [id number] 2.16.840.1.408532.3.579.2 .174 1944 Unknown [id number] 2.16.840.1.197803.3.579.2 .174 1944 Unknown [id number] 2.16.840.1.916199.3.579.2 .174 1944 Unknown [id number] 2.16.840.1.655632.3.579.2 .174 1944 Unknown [id number] 2.16.840.1.760908.3.579.2 .174 1944 Unknown [id number] 2.16.840.1.265992.3.579.2 .174 1944 Unknown [id number] 2.16.840.1.395587.3.579.2 .174 1944 Unknown [id number] 2.16.840.1.412779.3.579.2 .174 1944 Unknown [id number] 2.16.840.1.294106.3.579.2 .174 1944 Unknown [id number] 2.16.840.1.653735.3.579.2 .174 1944 Unknown [id number] 2.16.840.1.910657.3.579.2 .174 1944 Unknown [id number] 2.16.840.1.296782.3.579.2 .174 1944 Unknown [id number] 2.16.840.1.030425.3.579.2 .174 1944 Unknown [id number] 2.16.840.1.701249.3.579.2 .174 1944 Unknown [id number] 2.16.840.1.601548.3.579.2 .174 1944 Unknown [id number] 2.16.840.1.542748.3.579.2 .174 1944 Unknown [id number] 2.16.840.1.125769.3.579.2 .174 1944 Unknown [id number] 2.16.840.1.386600.3.579.2 .174 1944 Unknown [id number] 2.16.840.1.723844.3.579.2 .174 1944 Unknown [id number] 2.16.840.1.585428.3.579.2 .174 1944 Unknown [id number] 2.16.840.1.204691.3.579.2 .174 1944 Unknown [id number] 2.16.840.1.723565.3.579.2 .174 1944 Unknown [id number] 2.16.840.1.805449.3.579.2 .174 1944 Unknown [id number] 2.16.840.1.644621.3.579.2 .174 1944 Unknown [id number] 2.16.840.1.545982.3.579.2 .174 1944 Unknown [id number] 2.16.840.1.048905.3.579.2 .174 1944 Unknown [id number] 2.16.840.1.621865.3.579.2 .174 1944 Unknown [id number] 2.16.840.1.865478.3.579.2 .174 1944 Unknown [id number] 2.16.840.1.043021.3.579.2 .174 1944 Unknown [id number] 2.16.840.1.966029.3.579.2 .174 1944 Unknown [id number] 2.16.840.1.633196.3.579.2 .174 1944 Unknown [id number] 2.16.840.1.286079.3.579.2 .727 1944 Unknown [id number] 2.16.840.1.693722.3.579.2 .727 1944 Unknown [id number] 2.16.840.1.123135.3.579.2 .196 1944 Unknown [id number] 2.16.840.1.995330.3.579.2 .196 1944 Unknown [id number] 2.16.840.1.029291.3.579.2 .196 1944 Unknown [id number] 2.16.840.1.040716.3.579.2 .196 1944 Unknown [id number] 2.16.840.1.741902.3.579.2 .196 1944 Unknown [id number] 2.16.840.1.068888.3.579.2 .196 Unknown [id number] 2.16.840.1.540539.3.579.2 .531 Unknown [id number] 2.16.840.1.392617.3.579.2 .531 Unknown [id number] 2.16.840.1.939639.3.579.2 .531 Unknown [id number] 2.16.840.1.735325.3.579.2 .531 Unknown [id number] 2.16.840.1.320228.3.579.2 .531 Unknown [id number] 2.16.840.1.206709.3.579.2 .531 Unknown [id number] 2.16.840.1.515510.3.579.2 .531 Unknown [id number] 2.16.840.1.713213.3.579.2 .531 Social History Date Type Detail Facility Start: 05-30-2019 End: 03-14-2023 Tobacco smoking status NHIS Never smoker [employer] Start: 05-30-2019 End: 11-14-2023 Alcohol intake Current non-drinker of alcohol (finding) [facility] [employer] [place] Start: 1945 Sex Assigned At Not on file [facility] [employer] [place] Start: 03-31-2020 End: 11-14-2023 Tobacco use and exposure Never used [facility] [place] Exposure to SARS-CoV-2 (event) Yes [facility] [employer] [place] Start: 10-04-2021 End: 07-12-2022 Exposure to SARS-CoV-2 (event) Not sure [employer] Start: 11-22-2020 End: 09-03-2022 History SDOH Financial 5 [employer] Work Phone: Start: 11-22-2020 End: 09-03-2022 History SDOH Food Worry 1 [employer] Phone: Start: 1945 Sex Assigned At Female [employer] Phone: Start: 04-14-2019 End: 10-23-2023 Alcohol intake No [facility] [place] Tobacco smoking status Never [facility] Start: 09-03-2022 End: 11-25-2022 History SDOH Alcohol Frequency 2 [employer] Work Phone: Start: 11-25-2022 History SDOH Alcohol Std Drinks 0 [employer] Work Phone: Start: 11-25-2022 End: 10-23-2023 History of Social function [employer] How often to you hav e a drink containing alcohol? Monthly or less [facility] How often do you hav e 6 or more drinks on 1 occasion? Never [employer] (I/We) worried whether (my/our) food would run out before (I/we) got money to buy more. Never true [employer] At any time in the past 12 months, were you homeless or living in senior care [including now]? No [employer] Start: 01-27-2021 Gender identity Identifies as female gender (finding) [employer] Start: 04-13-2020 Sexual orientation Heterosexual (fin ding) [employer] Start: 05-02-2023 Alcohol intake [facility] Highlighted rowStart: NINF History of tobacco use Passive smoker [facility] Procedure Code Equipment Code Equipment Origin al Text Equipment Identifier Dates Surgical procedure, using tension free vaginal tape, for stress incontinence [id number] FDA Start: 06-03-2019 Surgical procedure, using tension free vaginal tape, for stress incontinence [id number] FDA Start: 06-03-2019 Surgical procedure, using tension free vaginal tape, for stress incontinence [id number] FDA Start: 06-03-2019 Surgical procedure, using tension free vaginal tape, for stress incontinence [id number] FDA Start: 06-03-2019 Surgical procedure, using tension free vaginal tape, for stress incontinence [id number] FDA Start: 06-03-2019 Surgical procedure, using tension free vaginal tape, for stress incontinence [id number] FDA Start: 06-03-2019 Surgical procedure, using tension free vaginal tape, for stress incontinence [id number] FDA Start: 06-03-2019 Surgical procedure, using tension free vaginal tape, for stress incontinence [id number] FDA Start: 06-03-2019 Surgical procedure, using tension free vaginal tape, for stress incontinence [id number] FDA Start: 06-03-2019 Surgical procedure, using tension free vaginal tape, for stress incontinence [id number] FDA Start: 06-03-2019 Surgical procedure, using tension free vaginal tape, for stress incontinence [id number] FDA Start: 06-03-2019 Surgical procedure, using tension free vaginal tape, for stress incontinence [id number] FDA Start: 06-03-2019 Surgical procedure, using tension free vaginal tape, for stress incontinence [id number] FDA Start: 06-03-2019 Surgical procedure, using tension free vaginal tape, for stress incontinence [id number] FDA Start: 06-03-2019 Surgical procedure, using tension free vaginal tape, for stress incontinence [id number] FDA Start: 06-03-2019 {01}[id number] 82 7{17}[id number]{10}14 [id number] FDA Start: 07-28-2021 Goals Date Patient Goal Desired Activity /State Personal health goal Functional Status Date Assessment Result Facility 09-16-2023 Functional Status N/A [facility] 02-28-2023 Functional Status N/A [facility] 08-28-2022 Functional Status N/A [facility] 07-26-2022 Functional Status N/A [facility] 07-10-2022 Functional Status N/A [facility] Clinical Notes 11-18-2020 to 10-23-2023 Discharge [...] and blood thinners. Close follow-up with your transformer tester, otherwise follow-up with your PCP, return to ER if any symptoms change or further concerns. Stay well-hydrated with water or nonsugar sports drinks, Zofran ODT for any nausea as needed, I would advise not to use anything for the diarrhea at this time save soft toilet paper or baby wipes as needed. The following attachments cannot be sent through Care Everywhere.Serous Otitis Media (Bermudian)Atrial Fibrillation (Bermudian)Direct Oral Anticoagulants: Non-Vitamin K Antagonist (Bermudian)Oral Rehydration (Bermudian)documented in this encounter [facility] 09-17-2023 Note [id number] [facility] 09-16-2023 Hospital Discharg e instructions Patient [...] 3 times a day. General instructions Take ivna-voq-imisjbi and prescription medicines only as told by [...] provider. Document Revised: 12/27/2021 Document Reviewed: 12/27/2021 MyColorScreen Patient Education 2022 [employer]. 09/16/2023 14:59:47 Diverticulosis MAGR (CUSTOM) Diverticulosis Many [...] unsweetened, w/added ascorbic acid 1 cup 0.5 Lockhart 1 cup 0.7 Vegetables Cooked Green beans 1 cup 4.0 Carrots 1/2 cup sliced 2.3 Peas 1 cup 8.8 Potato (baked, with skin) 1 medium potato 3.8 Raw Markesan (with peel) 1 cucumber 1.5 Lettuce 1 [...] 8.7 Peanuts 1/2 cup 7.9 Chart from [facility] 2013. SEEK IMMEDIATE MEDICAL CARE IF: You [...] Available at http://www.nal.usda.gov/fnic/sylvia dcomp/search/. Information adapted from: [facility] Patient Information [address] [facility]. [facility] [[email or web address]]Date 2013 http://www.General Blood/contents /pryzpcavftwa-jagjdyc-yyigfy-the -basics 09/16/2023 14:59:47 Colon Polyps Colon Polyps [...] hard liquor (44 mL). General instructions Take xzjz-avh-tjiqmkf and prescription medicines only as told by [...] provider. Document Revised: 10/05/2020 Document Reviewed: 10/05/2020 MyColorScreen Patient Education 2022 [employer]. Follow Up Care 02/28/2023 13:25:17 With:Davion Olivares Address: [address], [address] [address]- [phone] Business (1) When: Unknown Comments:office will call for follow up [facility] 09-16-2023 Evaluation + Plan note Extrac pepito from: Title:ANES Post General Author:Danny Anesthes iology ()Obie Date:09/16/23 Plan Transfer/Discharge: Patient exhibiting no signs of N/V. Hydration status is adequate. Extracted from: Title:Danny Basic PRE Author:Danny Anesthhaley siology ()Obie Date:09/16/23 Plan [place] Society of Anesthesiologists (ASA) physical status classification: Class III. Anesthetic Preoperative Plan: Anesthesia General. [facility]11-02-2023 Instructions* Patient Instructions* Grayson Hutchinson Jr., - 05/02/2023 9:49 AM EDT Assessment/Plan: Diagnoses [...] for repeat hearing testing. documented in this [id number] History of Present illness Narrative* AlbaroriverLaverne CastanoOswaldo ellis - 05/02/2023 9:19 AM EDT Images from the original note were not included. [facility] [address] [place] [address] Name: Mary Jane Rios : 1945 Date: [...] for bilateral ear infection. She returned to [facility] and was told that herear was still infected. She reports her last hearing test several years ago in [place]. 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 Electronically Signed by: Oswaldo Blake, CCC-A 05/02/23 9:19 AM documented in this [id number] History of Present illness Narrative* Grayson Hutchinson Jr., DO - 05/02/2023 8:57 AM EDT Images from the original note were not included. Subjective Patient ID: Mary Jane Rios is a 77 y.o. female. 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 Patient states she has had left ear infections for most of her life. She was treated for ear infection with Augmentin in October. 3 weeks ago, woke up with extreme pain and was treated again for b/l ear infection. She returned to [facility] and was told thather ear was still infected. Last hearing test several years ago in [place]. 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 documented in this [id number] NoteChief Complaint: lbp and radicular pain right [...] current indications for surgical management [facility] NoteChief Complaint: lbp and radicular pain right [...] preoperative surgical planning [facility] [facility]* Encounter Date Diagnosis Assessment Notes Treatment Notes Treatment Clinical Notes Mar, Piriformis syndrome of right side (ICD-10 - G57.01) [facility] Other 09-14-2023 Evaluation note* Encounter Date Diagnosis [...] note writ ten by John Merlos LPN, Mixer Blender. Edited and approved by Dr. Yanelis Garcia MD. [facility] Other 09-07-2023 Evaluation note* Encounter Date Diagnosis [...] be replaced but there are areas of gtst-ix-jkiy. My suspicion is that this is causing some nerve irritation I have no indication for doing back surgery I think injections in the spine will be of no benefit she is already had some and they have not helped. I think what needs to be injected or treated is the area around the hip. Mar, Right hip pain (ICD-10 - M25.551) [facility] Other 08-28-2023 Evaluation note* Encounter Date Diagnosis Assessment Notes Treatment Notes Treatment Clinical Notes Jan, Other spondylosis with radiculopathy, lumbar region (ICD-10 - M47.26) [facility] Other 08-17-2023 Evaluation note* Encounter Date Diagnosis Assessment Notes Treatment Notes Treatment Clinical Notes Jan, Other spondylosis with radiculopathy, lumbar region (ICD-10 - M47.26) [facility] Other 08-11-2023 Hospital Discharge instructions* Discharge Instructions* Keyshawn Suresh PA-C - 02/08/2023 4:26 PM EDT Follow-up with primary care doctor 7 to 10 days for reevaluation. Continue to wear corrective shoe as directed to prevent future sciatica low back pain events. Take [place] as directed. As we discussed, break a tab of [place] in half and take every 6 hours as needed for pain. Promptly return to emergency department for new, changing, worsening of symptoms or other concerns. * Attachments The following attachments cannot be sent through Care Everywhere. * Back Pain (Bermudian) * Sciatica (Bermudian) [facility]* Encounter Date Diagnosis Assessment [...] therapy. Follow above of treatment plan recommendations. [facility] Other 05-28-2023 History of Present illness Narrative* Zunilda Bullock RN - 11/25/2022 10:47 AM EDT Ticket to ride completed. The following information was reported off: Name Allergies Orientation Level Destination Safety Issues Code Status Oxygen Requirements Special needs including mobility, language, communication documented in this encounterBON Mobil [facility] Serv[facility] Work Phone: 1(368) 811-835702-28-2023 Hospital Discharge instructions Patient Education 08/28/2022 13:26:40 [...] powder, vinegar, hot sauces, and barbecue sauce. ?[place] fruit juices and citrus fruits, such as oranges, kamilah, and limes. ?Tomato-based foods, such as red sauce, chili, salsa, and pizza with red sauce. ?Fried and fatty foods, such as donuts, kyrgyz fries, potato chips, and high-fat dressings. ?High-fat [...] to any changes in your symptoms. Take vuzs-mjt-ebrbjzw and prescription medicines only as told by [...] you have new or worsening symptoms. Take uwco-dfc-kkhrmgw and prescription medicines only as told by [...] 03/27/2006 Document Revised: 12/24/2018 Document Reviewed: 12/24/2018 MyColorScreen Patient Education 2020 [employer] Follow Up Care 08/15/2022 13:39:48 With:KHADAR STEINER, EMIL Ferrari, [facility] Address: [facility] [employer] [place] [address] When:6 months Comments:Patient requests to be evaluated by Dr. Hernandez next visit. [facility] [id number] Evaluation note* Encounter Date Diagnosis Assessment Notes [...] note writ ten by John Merlos LPN, Mixer Blender. Edited and approved by Dr. Yanelis Gacria MD. [facility] Other 01-26-2023 Evaluation + Plan noteExtracted from: Title:ANES Pre-operative Note Author:Misha STEINER, R miryam S. Date:07/26/22 Plan [place] Society of Anesthesiologists (ASA) physical status classification: Class III. Anesthetic Preoperative Plan: Anesthesia General. [facility]01-26-2023 Hospital Discharge instructions Patient Education 07/26/2022 08:42:33 [...] what activities are safe for you. Take mmzd-gil-crstlzd and prescription medicines only as told by [...] 12/16/2012 Document Revised: 12/09/2018 Document Reviewed: 11/17/2018 ElseNight Out Patient Education 2020 [employer]. Follow Up Care 07/10/2022 14:59:17 With:Vonda KEATONMARIA INES Address: [facility] [address] [place] [address] Business (1) When: Unknown Comments:Office will call date and time of follow-up appt. [facility]01-17-2023 Procedure [facility]01-12-2023 Hospital Discharge instructions* Discharge Instructions* Alma Mao DO - 07/12/2022 9:31 AM EST Go to your scheduled appt with your GI doctor for your scope. * Attachments The following attachments cannot be sent through Care Everywhere. * Sore Throat (Bermudian) documented in this encounterBON Mobil [facility] Work Phone: 1(780) 607-947801-10-2023 Hospital Discharge instructions Patient Education 07/10/2022 14:24:54 [...] powder, vinegar, hot sauces, and barbecue sauce. ?[place] fruit juices and citrus fruits, such as oranges, kamilah, and limes. ?Tomato-based foods, such as red sauce, chili, salsa, and pizza with red sauce. ?Fried and fatty foods, such as donuts, kyrgyz fries, potato chips, and high-fat dressings. ?High-fat [...] to any changes in your symptoms. Take efes-yuk-uyircpe and prescription medicines only as told by [...] you have new or worsening symptoms. Take gzxq-hva-xbsdqxz and prescription medicines only as told by [...] 03/27/2006 Document Revised: 12/24/2018 Document Reviewed: 12/24/2018 MyColorScreen Patient Education 2020 [employer]. Follow Up Care 06/26/2022 15:51:19 With:Donna Spencer CNP Address: When:1 to 2 weeks Comments:Following EGD. [facility] 12-14-2022 Evaluation note* Encounter Date [...] note writ ten by John Merlos LPN, Mixer Blender. Edited and approved by Dr. Yanelis Garcia MD. [facility] Other 11-02-2022 Evaluation note* Encounter Date Diagnosis [...] note writ ten by Rush Toro MA, Mixer Blender. Edited and approved by Dr. Yanelis Garcia MD. [facility] Other 10-10-2022 Evaluation note* Encounter Date Diagnosis [...] note writ ten by John Merlos LPN, Mixer Blender. Edited and approved by Dr. Yanelis Garcia MD. [facility] Other 04-13-2022 History of Present illness Narrative* Zo Chen, PT - 10/11/2021 9:00 AM EDT Images from the original note were not included. [facility] Daily Note Date: 10/11/2021 Patient Name: Mary Jane Rios : 1945 (75 y.o.) Referring Practitioner: Dr. 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 Work Phone: 1(455) 696-330304-13-2022 Hospital course Narrative* Zo Chen, PT - 10/11/2021 9:00 AM EDT Images from the original note were not included. [facility] Discharge Summary Patient: Mary Jane Rios : 1945 Referring Practitioner: Dr. Meyer Diagnosis: Right RCR repair Date Treatment Initiated: 04/28/22 Date of Last Treatment: 10/11/21 PT Visit Information Onset Date: 07/28/21 PT Insurance Information: [facility] Total # of Visits Approved: [...] CHEN PT Date: 10/11/2021 documented in this [facility] Phone: 1(289) 119-830904-06-2022 History of Present illness Narrative* Zo Chen PT - 10/04/2021 11:15 AM EDT Images from the original note were not included. [facility] Daily Note Date: 10/04/2021 Patient Name: Mary Jane Rios : 1945 (75 y.o.) Referring Practitioner: Dr. 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 Phone: 1(124) 947-432303-28-2022 History of Present illness Narrative* Rashmi Paige - 09/25/2021 11:15 AM EDT [facility] Date: 09/25/2021 Patient Name: Mary Jane Rios : 1945 Pt Cancelled Appt due to going to a . Rashmi Paige Date: 09/25/[address] [facility] Phone: 1(129) 283-924503-24-2022 History of Present illness Narrative* Velasquez Martle PTA - 09/21/2021 9:00 AM EDT Images from the original note were not included. [facility] Daily Note Date: 09/21/2021 Patient Name: Mary Jane Rios : 1945 (75 y.o.) Referring Practitioner: Dr. 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 Work Phone: 1(292) 234-183703-22-2022 History of Present illness Narrative* Nancy Nunez - 09/19/2021 9:15 AM EDT Images from the original note were not included. [facility] Daily Note Date: 09/19/2021 Patient Name: Mary Jane Rios : 1945 (75 y.o.) Referring Practitioner: Dr. 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 Work Phone: 1([phone]) 118-516703-18-2022 History of Present illness Narrative* Velasquez Martel, JEWEL INSPECTOR - 09/15/2021 9:45 AM EDT Images from the original note were not included. [facility] Daily Note Date: 09/15/2021 Patient Name: Mary Jane Rios : 1945 (75 y.o.) Referring Practitioner: Dr. 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 Work Phone: 1(709) 315-356203-16-2022 History of Present illness Narrative* Velasquez Martel PTA - 09/13/2021 9:45 AM EDT Images from the original note were not included. [facility] Daily Note Date: 09/13/2021 Patient Name: Mary Jane Rios : 1945 (75 y.o.) Referring Practitioner: Dr. 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 [facility] Daily Note Date: 09/07/2021 Patient Name: Mary Jane Rios : 1945 (75 y.o.) Referring Practitioner: Dr. 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 Phone: 1(710) 150-285312-13-2021 History of Present illness Narrative* Rashmi Shukla Kenjil - 06/12/2021 10:30 AM EST [facility] Date: 06/12/2021 Patient Name: Mary Jane Rios : 1945 Pt Cancelled Appt due to Illness Rashmi Shukla Kenjil Date: 06/12/[address] [facility] [facility] Phone: 1(368) 262-980811-05-2021 History of Present illness Narrative* Zo Chen, PT - 05/05/2021 2:30 PM EDT Images from the original note were not included. 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 helper termite goal 1: Subjective right shoulder pain < 3/10 with daily household tasks exterminator helper termite goal 2: Active functional mobility to reach behind head for hair care and behind back to don coat/dressing exterminator helper termite goal 3: Strength right shoulder to lift/carry gallon of milk or fold clothes Post Treatment Pain: 09/07 Time In: 1435 Time Out : 1510 Timed Code Treatment Minutes: 35 Minutes Total Treatment Time: 35 Minutes ZO CHEN PT Date: 05/05/2021 documented in [facility] Work Phone: 1(805) 399-845405-21-2021 History of Present illness Narrative* Ericka Cline RN - 11/18/2020 6:50 AM EDT Pt states she took 6 tablets of Imodium yesterday. She states she is incontinent of urine/stool & the imodium is not helping. documented in this encounterR[facility] Work Phone: evaluation + Plan note No data available for this section [facility] Evaluation + Plan note Future Appointments Appointment Date:07/10/2022 02:00:00 PM Scheduled Provider:Donna Spencer CNP Location:[facility] [place] Dig[facility]ive Health Appointment Type:[facility] Follow Up [facility] Evaluation + Plan note Future Appointments Appointment Date:07/26/2022 08:15:00 AM Scheduled Provider: Location:[facility] Surgical Services Appointment Type:Surgery [facility] Dig[facility] Evaluation + Plan note Future Appointments Appointment Date:02/28/2023 12:00:00 PM Scheduled Provider:Vonda HERNANDEZ MD Location:[facility] [place] Dig[facility]ive Health Appointment Type:[facility] Follow Up Future Scheduled Tests Laboratory* Vitamin B12 Level 08/28/22 [facility] evaluation + Plan note Future Appointments Appointment Date:08/05/2023 12:30:00 PM Scheduled Provider: Location:[facility] Surgical Services Appointment Type:Surgery Future Scheduled Tests Laboratory* Vitamin B12 Level 08/28/22 [facility] evaluation note* Diagnosis Nausea vomiting and diarrhea- Primary Nausea with vomiting documented in this encounter [employer] Phone: evaluation note* Diagnosis Diarrhea of presumed infectious origin Intractable vomiting with nausea, unspecified vomiting type documented in this encounter [employer] Phone: evalhufepr note* Diagnosis Diarrhea, unspecified type- Primary General weakness Other malaise and fatigue Urinary incontinence, unspecified type documented in this encounter [employer] Phone: evalgwqehp note* Diagnosis Low hemoglobin Anemia, unspecified documented in this encounter [employer] Phone: evalducqzo note* Diagnosis Low hemoglobin Anemia, unspecified documented in this encounter [employer] Phone: evalvyvqtu note* Diagnosis Screening mammogram, encounter for documented in this encounter [employer] Phone: evaltnqopg note* Diagnosis Right shoulder pain, unspecified chronicity documented in this encounter [employer] Phone: evaluation note* Diagnosis Acute non-recurrent pansinusitis documented in this encounter [employer] Phone: evalbfpmlo note* Diagnosis Diarrhea of presumed infectious origin documented in this encounter [employer] [place], DELONTEEvaluation note* Diagnosis History of arthroscopy of right shoulder documented in this encounter [employer] Phone: evalqimmyo note* Diagnosis Essential hypertension Unspecified essential hypertension Palpitations Hypothyroidism, unspecified type Hyperlipidemia, unspecified hyperlipidemia type Vitamin D deficiency disease Unspecified vitamin D deficiency documented in this encounter [employer] Phone: evalmadmco note* Diagnosis Essential hypertension Unspecified essential hypertension Pure hypercholesterolemia Acquired hypothyroidism Unspecified hypothyroidism Palpitations Vitamin D deficiency disease Unspecified vitamin D deficiency documented in this encounter [employer] Phone: evalfbunnf note* Diagnosis Essential hypertension Unspecified essential hypertension Pure hypercholesterolemia Acquired hypothyroidism Unspecified hypothyroidism Palpitations Vitamin D deficiency disease Unspecified vitamin D deficiency documented in this encounter [employer] Phone: evaluation note* Diagnosis Essential hypertension Unspecified essential hypertension Pure hypercholesterolemia Acquired hypothyroidism Unspecified hypothyroidism Palpitations Vitamin D deficiency disease Unspecified vitamin D deficiency documented in this encounter [employer] Phone: evaluation note* Diagnosis Acute cystitis with hematuria- Primary Acute cystitis Vaginal yeast infection Candidiasis of vulva and vagina documented in this encounter [employer] Phone: evalrlwnqc note* Diagnosis Women's annual routine gynecological examination Vaginal burning Other specified symptom associated with female genital organs documented in this encounter [employer] Phone: evaliacnbm note* Diagnosis H/O repair of right rotator cuff Personal history of surgery to other organs documented in this encounter [employer] Phone: evalnamkhf note* Diagnosis Visit for screening mammogram Other screening mammogram documented in this encounter [employer] Phone: evaligxtyg noteNo assessment information [facility] Work Phone: Evaluation noteNo InformationNort Neck Tie [employer] Other Evaluation note* Diagnosis Acute pharyngitis, unspecified etiology- Primary documented in this encounter [employer] Phone: evalwkgqgp note* Diagnosis Essential hypertension Unspecified essential hypertension Palpitations Hypothyroidism, unspecified type Hyperlipidemia, unspecified hyperlipidemia type Vitamin D deficiency disease Unspecified vitamin D deficiency documented in this encounter [employer] Phone: evalrfbmwu note* Diagnosis Non-recurrent acute suppurative otitis media of left ear without spontaneous rupture of tympanic membrane- Primary Acute nonintractable headache, unspecified headache type documented in this encounter [facility] [employer] Work Phone: evaluation note* Diagnosis Chronic low back pain with right-sided sciatica, unspecified back pain laterality- Primary documented in this encounter [facility]* Diagnosis Renal cyst Unspecified congenital cystic kidney disease documented in this encounter [facility]* Diagnosis Bruxism (teeth grinding)- Primary Other specified psychophysiological malfunction Acute suppurative otitis media of left ear without spontaneous rupture of tympanic membrane, recurrence not specified ROSETTE on CPAP Hearing loss, unspecified hearing loss type, unspecified laterality documented in this encounter [facility]* Diagnosis Sensorineural hearing loss, bilateral- Primary Hearing loss, unspecified hearing loss type, unspecified laterality documented in this encounter [facility]* Diagnosis COVID-19 virus infection- Primary documented in this encounter [facility] [employer] ServisViZn Energy Systemstidalhealth [facility] note* Diagnosis New onset atrial fibrillation (HCC)- Primary Atrial fibrillation Atrial fibrillation with RVR (HCC) Atrial fibrillation History of chronic kidney disease Personal history of other disorder of urinary system Symptoms of dehydration Fluid level behind tympanic membrane of both ears Acute pansinusitis, recurrence not specified Nausea vomiting and diarrhea Nausea with vomiting documented in this encounter [facility]* Diagnosis Paroxysmal atrial fibrillation (HCC)- Primary Atrial fibrillation documented in this encounter [facility] general Narrative - Reported* Type Description Date [...] History Epidural injections Hospitalization History see above [employer] Other History general Narrative - Reported* Type Description Date [...] cuff tear repair Hospitalization History see above [employer] Other Hospital Discharge instructions* Attachments The following attachments cannot be sent through Care Everywhere. * Diarrhea (Bermudian) documented in this encounterR[facility] Work Phone: Hospital Discharge instructions* Attachments The following attachments cannot be sent through Care Everywhere. * Fatigue (Bermudian) * Diarrhea (Bermudian) * Stress Incontinence: Female (Bermudian) * Urge Incontinence: Female (Bermudian) documented in this encounterRiver[facility] InstituteRef[facility] Holdings Phone: Hospital Discharge instructions* Attachments The following attachments cannot be sent through Care Everywhere. * UTI (Urinary Tract Infection): Female (Bermudian) * Vaginal Yeast Infection (Bermudian) documented in this encounterR[facility] Institute[facility] Work Phone: Hospital Discharge instructions No data available for this section [facility] Hospital Discharge instructions* Attachments The following attachments cannot be sent through Care Everywhere. * Otitis Media (Bermudian) * Headache (Bermudian) documented in [facility] encounter[facility] [employer] Work Phone: Hospital Discharge instructions* Attachments The following attachments cannot be sent through Care Everywhere. * Coronavirus Disease (COVID-19): General Info (Bermudian) documented in this encounterRE[facility] [employer] [facility]* Attachments The following attachments cannot be sent through Care Everywhere. * Supraventricular Tachycardia (Bermudian) [facility] [place] [facility] No data available for this section [facility] Summary Purpose Family History No [...] FoundDocuments on File Type Date Recorded Patient Registered Appraiser Expl anation Advance Directives and Livin g Will Advance Directives and Livin g Will 03/01/2016 1:57 PM Power of Fitness Instructor Power of Fitness Instructor 03/01/2016 1:57 PM Latest Code Status on File Code Status Date Activated Date Inactivated Comments Full Code 02/21/2015 1:32 PM 02/21/2015 5:10 PM Full Code 02/21/2015 12:11 PM 02/21/2015 1:32 PM Full Code 01/31/2015 10:04 AM 01/31/2015 12:51 PM Full Code 01/31/2015 8:49 AM 01/31/2015 10:04 AM Full Code 04/30/2012 8:28 AM 04/30/2012 3:52 PM Documents on File Type Date Recorded Patient Registered Appraiser Expl anation Advance Directives and Livin g Will Advance Directives and Livin g Will 03/01/2016 1:57 PM Power of Fitness Instructor Power of Fitness Instructor 03/01/2016 1:57 PM Latest Code Status on File Code Status Date Activated Date Inactivated Comments Full Code 02/21/2015 1:32 PM 02/21/2015 5:10 PM Full Code 02/21/2015 12:11 PM 02/21/2015 1:32 PM Full Code 01/31/2015 10:04 AM 01/31/2015 12:51 PM Full Code 01/31/2015 8:49 AM 01/31/2015 10:04 AM Full Code 04/30/2012 8:28 AM 04/30/2012 3:52 PM Documents on File Type Date Recorded Patient Registered Appraiser Expl anation ACP-Advance Directive ACP-Advance Directive 03/01/2016 1:57 PM ACP-Power of Fitness Instructor ACP-Power of Fitness Instructor 03/01/2016 1:57 PM Documents on File Type Date Recorded Patient Registered Appraiser Expl anation ACP-Advance Directive ACP-Advance Directive 03/01/2016 1:57 PM ACP-Power of Fitness Instructor ACP-Power of Fitness Instructor 03/01/2016 1:57 PM Documents on File Type Date Recorded Patient Registered Appraiser Expl anation ACP-Advance Directive ACP-Power of Fitness Instructor ACP-Advance Directive 03/01/2016 1:57 PM ACP-Power of Fitness Instructor 03/01/2016 1:57 PM Documents on File Type Date Recorded Patient Registered Appraiser Expl anation ACP-Advance Directive ACP-Power of Fitness Instructor ACP-Advance Directive 03/01/2016 1:57 PM ACP-Power of Fitness Instructor 03/01/2016 1:57 PM Healthcare Agents on File [...] Documents on File Type Date Recorded Patient Registered Appraiser Expl anation ACP-Advance Directive 03/01/2016 1:57 PM ACP-Power of Fitness Instructor 03/01/2016 1:57 PM Healthcare Agents on File Name Relationship Healthcare Agent Relationshi p Communication Adeel Athy Spouse Primary Decision Maker Advance Directive Response Recorded Date/ Time Advance Directives No April 22, 2017 3:57pm Advance Directive Response Recorded Date/ Time Advance Directives No April 22, 2017 2:57pm Documents on File Type Date Recorded Patient Registered Appraiser Expl anation ACP-Advance Directive 03/01/2016 1:57 PM ACP-Power of Fitness Instructor 03/01/2016 1:57 PM Healthcare Agents on File [...] Documents on File Type Date Recorded Patient Registered Appraiser Expl anation ACP-Power of Fitness Instructor 03/01/2016 1:57 PM ACP-Advance Directive 03/01/2016 1:57 [...] Documents on File Type Date Recorded Patient Registered Appraiser Expl anation ACP-Power of Fitness Instructor 03/01/2016 1:57 PM ACP-Advance Directive 03/01/2016 1:57 [...] be sent through Care Everywhere. * Sinusitis (Bermudian) documented in this encounter* Attachments The following attachments cannot be sent through Care Everywhere. * Fatigue (Bermudian) * Vertigo (Bermudian) documented in this encounter Assessments Diagnosis Acute [...] unspecified type Procedures EKG 12 Lead Reagan Pascal MD [address] [place] [id number] Status Reason Specialty Diagnoses / Procedures Referre d By Contact Referred To Contact Closed Radiology Diagnoses Screening mammogram, encounter for Procedures ANA WU DIGITAL SCREEN BILATERAL Roni Dhal MD [address] [place] [address] [facility] [address] [place] [address] Specialty Diagnoses / Procedures Referred By Contac t Referred To Contact Cardiology Diagnoses Essential hypertension Palpitations Hypothyroidism, unspecified type Hyperlipidemia, unspecified hyperlipidemia type Vitamin D deficiency disease Procedures EKG 12 Lead Reagan Pascal MD [address] [place] [address] Referral ID Status Reason Start Date Expiration Date Visits Re quested Visits Authorized [id number] Open 09/06/2021 09/06/2022 1 1 Status Reason Specialty Diagnoses / Procedures Referre d By Contact Referred To Contact Open Cardiology Diagnoses Essential hypertension Pure hypercholesterolemia Acquired hypothyroidism Palpitations Vitamin D deficiency disease Procedures EKG 12 Lead Reagan Pascal MD [address] [place] [address] Specialty Diagnoses / Procedures Referred By Juan Manuel t Referred To Contact Radiology Diagnoses Visit for screening mammogram Procedures [facility] WU DIGITAL SCREEN BILATERAL Roni Dahl MD [address] [place] [address] Referral ID Status Reason Start Date Expiration Date Visits Re quested Visits Authorized [id number] Closed 01/25/2022 01/25/2023 1 1 Specialty Diagnoses / Procedures Referred By Juan Manuel t Referred To Contact Radiology Diagnoses Renal cyst Procedures US RENAL LIMITED Yanelis Guzman MD [address] [place] [address], [address] [place] [address] Referral ID Status Reason Start Date Expiration Date Visits Re quested Visits Authorized [id number] Open 03/13/2023 03/12/2024 1 1 Specialty Diagnoses / Procedures Referred By Juan Manuel t Referred To Contact Audiology Diagnoses Hearing loss, unspecified hearing loss type, unspecified laterality Grayson Hutchinson Jr., DO [address] [place] [address] Mary Sue, Oswaldo [address] [place] [address] Referral ID Status Reason Start Date Expiration Date V isits Requested Visits Authorized [id number] Closed Specialty Services Required/Flower ent's Best Interest 05/02/2023 05/01/2024 1 1 Specialty Diagnoses / Procedures Referred By Juan Manuel t Referred To Contact Cardiology Diagnoses New onset atrial fibrillation (HCC) Atrial fibrillation with RVR (HCC) Procedures [address] - [place] Single/Multiple Event Recorder Lexy Tapia MD [address] [place] [address] [place] [address] Referral ID Status Reason Start Date Expiration Date Visits Re quested Visits Authorized [id number] Open 10/23/2023 10/22/2024 1 1 Chief Complaint [...] M47.26 back/R leg pain sent by Dr Chief Complaint M47.26 back/R leg pain sent by Dr Lopez order Chief Complaint M47.26 back/R leg pain sent by Dr Lopez order Hip pain Chief Complaint back/R leg pain sent by Dr Lopez order Hip pain Chief Complaint M15.0 / M35.9 / R76. 0 / Z79.899 Osteoporosis, meds Additional Source Comments INFORMATION SOURCE (unrecogn ized section and content) DATE CREATED AUTHOR 12/24/2017 [facility] DATE CREATED AUTHOR AUTHOR'S ORGANIZ ATION 03/27/2018 [facility] DATE CREATED AUTHOR AUTHOR'S ORGANIZ ATION 07/13/2021 [facility] dical Specialist DATE CREATED AUTHOR AUTHOR'S ORGANIZ ATION 03/17/2023 [facility] pital DATE CREATED AUTHOR AUTHOR'S ORGANIZ ATION 04/13/2023 [facility] DATE CREATED AUTHOR AUTHOR'S ORGANIZ ATION 05/06/2023 [facility] DATE CREATED AUTHOR AUTHOR'S ORGANIZ ATION 12/13/2023 [facility] DATE CREATED AUTHOR AUTHOR'S ORGANIZ ATION 01/17/2024 [facility] DATE CREATED AUTHOR AUTHOR'S ORGANIZ ATION 02/12/2024 [facility] DATE CREATED AUTHOR AUTHOR'S ORGANIZ ATION 03/30/2024 [facility] Reason for Visit (unrecogniz ed section [...] HC MAMMOGRAM DIGITAL SCREEN Roni Sales MD [address] [place] [address] [facility] [address] [place] [address] Reason Comments Illness Pt has not been feel ing well for about 5-6 weeks. pt states, I just feel uncoordinated, and weak. Pt has been dizzy but diagnosed with vertigo. Pt was exposed to covid on 03/15. Reason Comments Diarrhea Pt states she has gallardo d diarrhea since last saturday & she has been vomiting since 499. Reason Comments Abdominal Pain was seen in ed two w eeks ago for diarrhea and vomiting. Patient continues to have loose stool. Complains of fatigue and new urine incontinence Diarrhea Status Reason Specialty Diagnoses / Procedures Referre d By Contact Referred To Contact Closed Radiology Diagnoses Screening mammogram, encounter for Procedures ANA WU DIGITAL SCREEN BILATERAL Roni Dahl MD [address] [place] [address] [facility] [address] [place] [address] Status Reason Specialty Diagnoses / Procedures Referred By Contact Referred To Contact Open Physical Therapy Diagnoses Shoulder pain, right Procedures physical therapy Angelito Meyer DO [address] [place] [address] Zo Chen, PT [address] [place] [address] Specialty Diagnoses / Procedures Referred By Contac t Referred To Contact Physical Therapy Diagnoses Shoulder pain, right Procedures physical therapy Angelito Meyer, DO [address] [place] [phone] Zo Chen, PT [address] [place] [address] Referral ID Status Reason Start Date Expiration Date Visits Re quested Visits Authorized [id number] Open 04/28/2021 04/28/2022 99 99 Reason Comments Urinary Tract Infection Pt states that s he has been having painful urination x 10 days. Specialty Diagnoses / Procedures Referred By Juan Manuel garibay Referred To Contact Radiology Diagnoses Visit for screening mammogram Procedures [facility] WU DIGITAL SCREEN BILATERAL Roni Dahl MD [address] [place] [address] Referral ID Status Reason Start Date Expiration Date Visits Re quested Visits Authorized [id number] Closed 01/25/2022 01/25/2023 1 1 Reason Comments [...] working in the garden. Patient seen at [facility] this past Saturday and given cortisone/ muscle relaxer. Patient unable to relieve pain. 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 Patient states she has had left ear infections for most of her life. She was treated for ear infection with Augmentin in October. 3 weeks ago, woke up with extreme pain and was treated again for b/l ear infection. She returned to [facility] and was told that her ear was still infected. Last hearing test several years ago in [place]. 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 Saw Gann in 2019. Specialty Diagnoses / Procedures Referred By Juan Manuel garibay Referred To Contact Otolaryngology Diagnoses Acute suppurative otitis media of left ear without spontaneous rupture of tympanic membrane, recurrence not specified Andre Rowe, SPRINKLER DRIVER [address] [place] [address] Grayson Hutchinson Jr., DO [address] [place] [address] Referral ID Status Reason Start Date Expiration Date V isits Requested Visits Authorized [id number] Closed Specialty Services Required/Flower ent's Best Interest 04/24/2023 04/23/2024 1 1 Specialty Diagnoses / Procedures Referred By Contac t Referred To Contact Audiology Diagnoses Hearing loss, unspecified hearing loss type, unspecified laterality Grayson Hutchinson Jr., DO [address] [place] [address] Vignesh Mary, AuD [address] [place] [address] Referral ID Status Reason Start Date Expiration Date V isits Requested Visits Authorized [id number] Closed Specialty Services Required/Flower ent's Best Interest [...] Start Date End Da te nystatin (MYCOSTATIN) 778039 UNIT/ML suspension Take 5 mLs by mouth 4 times daily Swish and swallow. 200 mL 0 11/25/2022 amoxicillin-clavulanate (AUGMENTIN) 875-125 MG per tablet Take 1 tablet by mouth 2 times daily for 10 days 20 tablet 0 11/25/2022 12/05/2022 nystatin (MYCOSTATIN) 235955 UNIT/ML suspension Take 5 mLs by mouth [...] on the AUG. 1448 (Furnished to P atient - Provider: Emily Choi, MARIFER) Scheduled Medication Order 10/21/2023 10/22/2023 10/23/2023 ondansetron (ZOFRAN) injection 4 mg (COMPLETED) 4 mg, IntraVENous, ONCE, 1 dose, On 4/24/24 at 1000 0957 (Given - Provid er: [...] 50 mg, Oral, ONCE, 1 dose, On Sat11/14/23 at 2029 2046 (Given - Provid er: Maria R Love RN) potassium chloride (KLOR-CON) extended release tablet 40 mEq (COMPLETED) 40 mEq, Oral, ONCE, 1 dose, On Shannan 11/14/23 at 2044, Do not crush or break. 2046 (Given - Provid er: Maria R Love RN) Care Teams (unrecognized sec tion and content) Bungy Jump Master Relationship Specialty Start Date End Date Roni Dahl MD [address] [place] [address] PCP - General 07/15/12 Bungy Jump Master Relationship Specialty Start Date End Date Roni Dahl MD [address] [place] [address] PCP - General 07/15/12 Bungy Jump Master Relationship Specialty Start Date End Date Roni Dahl MD [address] [place] [address] PCP - General 07/15/12 Bungy Jump Master Relationship Specialty Start Date End Date Roni Dahl MD [address] [place] [address] PCP - General 07/15/12 Bungy Jump Master Relationship Specialty Start Date End Date Roni Dahl MD [address] [place] [address] PCP - General 07/15/12 Bungy Jump Master Relationship Specialty Start Date End Date Roni Dahl MD [address] [place] [address] PCP - General 07/15/12 Bungy Jump Master Relationship Specialty Start Date End Date Roni Dahl MD [address] [place] [phone] PCP - General 07/15/12 Bungy Jump Master Relationship Specialty Start Date End Date Roni Dahl MD [address] [place] [id number] PCP - General 07/15/12 Bungy Jump Master Relationship Specialty Start Date End Date Roni Dahl MD [address] [place] [phone] PCP - General 07/15/12 Bungy Jump Master Relationship Specialty Start Date End Date Roni Dahl MD [address] [place] [address] [id number] PCP - General 07/15/12 Bungy Jump Master Relationship Specialty Start Date End Date Roni Dahl MD [address] [place] [id number] PCP - General 07/15/12 Bungy Jump Master Relationship Specialty Start Date End Date Roni Dahl MD [address] [place] [phone] PCP - General 07/15/12 Team Status: Inactive [...] Active Yanelis Garcia MD Attending Provider Active Bungy Jump Master Relationship Specialty Start Date End Date Roni Dahl MD [address] [place] [phone] PCP - General 07/15/12 Bungy Jump Master Relationship Specialty Start Date End Date Roni Dahl MD [address] [place] [id number] PCP - General 07/15/12 Bungy Jump Master Relationship Specialty Start Date End Date Roni Dahl MD [address] [place] [phone] PCP - General 07/15/12 Bungy Jump Master Relationship Specialty Start Date End Date Roni Dahl MD [address] [place] [phone] PCP - General 07/15/12 Bungy Jump Master Relationship Specialty Start Date End Date Roni Dahl MD [address] [place] [address] PCP - General 07/15/12 Team Status: Inactive Member Role Status Dates Roni Dahl MD Primary Care Provider Active Jesus Vasquez APRN Emergency Provider Active Bungy Jump Master Relationship Specialty Start Date End Date Roni Dahl MD [address] [place] [address] PCP - General 07/15/12 Team Status: Inactive Member Role Status Dates Roni Dahl MD Primary Care Provider Active Mukul Wilson MD Attending Provider Active Bungy Jump Master Relationship Specialty Start Date End Date Roni Dahl MD [address] [place] [address] [facility] - General 07/15/12 Bungy Jump Master Relationship Specialty Start Date End Date Roni Dahl MD [address] [place] [address] PCP - General Family Medicine 04/24/23 Bungy Jump Master Relationship Specialty Start Date End Date Roni Dahl MD [address] [place] [address] PCP - General Family Medicine 04/24/23 Team Status: Inactive Member Role Status Dates Roni Dahl MD Primary Care Provider Active Obie Hylton MD Attending Provider Active Bungy Jump Master Relationship Specialty Start Date End Date Roni Dahl MD [address] [place] [address] PCP - General 07/15/12 Team Status: Inactive Member Role Status Dates Roni Dahl MD Primary Care Provider Active Start: September 19, 2023 End: September 19, 2023 DENISHA Cedeño Attending Provider Active Start: September 19, 2023 End: September 19, 2023 Bungy Jump Master Relationship Specialty Start Date End Date Roni Dahl MD [address] [place] [address] PCP - General 07/15/12 Bungy Jump Master Relationship Specialty Start Date End Date Roni Dahl MD [address] [place] [address] PCP - General 07/15/12 Team Status: Inactive [...] BE BASED ON THE PRIMARY CLINICAL RECORDS. [facility] [employer] provides no warranty or guarantee of the accuracy or completeness of information in this document."
[2024-04-06 09:25] VITALS: BP 144/80; PULSE 62; TEMP 36.3; O2SAT 99
[2024-04-06 10:04] VITALS: BP 171/76; BP 176/75; PULSE 60; PULSE 65; O2SAT 90; O2SAT 97
[2024-04-06] MEDS: BUPIVACAINE HCL 0.25% PF 25 MG/10 ML VIAL 8 ML INJ (10:07)
[2024-04-06] MEDS: LIDOCAINE HCL 2% 400 MG/20 ML MDV INJ (10:08)
--- NOTE | 2024-04-06 10:10 | W.PM.PROCNOT ---
Date of procedure: 04/06/24 Pre-op diagnosis: Pain due to lumbar spondylosis without myelopathy Post-op diagnosis: same as pre-op Procedure: Procedure: Bilateral L4-5, L5-S1 medial branch block Medications: Bupivacaine 0.25% 6cc The patient was seen and examined in the preoperative holding area.? An informed consent was obtained and placed on the chart.? The patient was brought to the medical procedure unit and placed in the prone position.? A timeout was completed verifying correct patient, procedure site, positioning, plan, and special equipment.? Using aseptic technique, the needle was placed at left L4. Under direct fluoroscopic visualization a Quincke-tipped spinal needle was advanced to the junction of the superior articulating process with the transverse process at the designated medial branch segment.? Preceded by negative aspiration, the above-mentioned injectate was placed in 1 mL aliquots.? The procedure was repeated at left L5, S1.? The needle was removed and insertion site was covered. The same procedure, at the same levels, was completed on the right side. The patient was taken to the postprocedural recovery area and monitored for an appropriate length of time before found suitable for discharge in the company of a responsible adult. Anesthesia: Local Surgeon: Trevon Harris Pathology: none sent Condition: stable Disposition: no change
== END 2024-04-06 10:09 | disposition home or self-care (01) ==
LOC: SURGOUT 08:26
PROVIDERS: PCP Family Medicine; Visit Provider Anesthesiology
DX: M47.816 Spondylosis without myelopathy or radiculopathy, lumbar region (principal)
CPT/HCPCS: 64493; 64494; J0665

== ENCOUNTER 2024-04-08 13:05 | Outpatient (OUT) | payer MEDICARE, SELFPAY ==
--- NOTE | 2024-04-08 13:14 | P.CN_ITS ---
Consult Note: HPI Data of Consult Patient: known to practice within the last 3 years Consult date: 08/26/23 Requesting Physician: Gabrielle Boswell NP Primary Care Provider: RONI EYE Consult Narrative Reason for consult: Low back, bilateral leg pain, neck pain Narrative: 77yof who presents for evaluation. Longstanding low back and bilateral lower extremity pain. Lumbar imaging shows multilevel facet and disc degeneration, as well as several levels of stenosis, particularly at L4-5 and L5-S1. Continues in provider directed home exercises and therapy exercises >6 weeks. Has tried tylenol, NSAIDs, tramadol. Denies adverse med side effects. ow back pain 8/10 ache increasing to 10/10 with standing, walking, twisting, pushing, pulling, stairs, and all activity. Patient reporting frequent falls at home. Patient recently underwent bilateral L5-S1 TFESI and right SIJ injection with >50% improvement ongoing. Pain 4/10 today, recently fall without injury. Patient denies numbness and weakness as well as loss of bowel or bladder. underwent bilateral L4-5 L5-S1 MBB #1 and #2 with >80% improvement in pain and functional ability immediately following and 8 hours after, pts preop pain 8/10 decreasing to 2/10. cc:: CC: Gabrielle Boswell NP Review of Systems ROS Status of ROS 10 or more systems reviewed and unremark able except as noted in history and below Musculoskeletal Reports: back pain PFSH PFSH Medical History Irregular heartbeat ?I49.9 - Cardiac arrhythmia, unspecified (ICD-10) Sleep apnea ?G47.30 - Sleep apnea, unspecified (ICD-10) Hiatal hernia ?K44.9 - Diaphragmatic hernia without obstruction or gangrene (ICD-10) Acid reflux ?K21.9 - Gastro-esophageal reflux disease without esophagitis (ICD-10) Osteoarthritis ?M19.90 - Unspecified osteoarthritis, unspecified site (ICD-10) TMJ (dislocation of temporomandibular joint) ?S03.00XA - Dislocation of jaw, unspecified side, initial encounter (ICD-10) Hypothyroid ?E03.9 - Hypothyroidism, unspecified (ICD-10) Surgical History History of bladder surgery ?Z98.890 - Other specified postprocedural states (ICD-10) History of knee replacement ?Z96.659 - Presence of unspecified artificial knee joint (ICD-10) History of hip replacement ?Z96.649 - Presence of unspecified artificial hip joint (ICD-10) History of cholecystectomy ?Z90.49 - Acquired absence of other specified parts of digestive tract (ICD- 10) History of ankle surgery ?Z98.890 - Other specified postprocedural states (ICD-10) H/O: hysterectomy ?Z90.710 - Acquired absence of both cervix and uterus (ICD-10) H/O hernia repair ?Z98.890 - Other specified postprocedural states (ICD-10) ?Z87.19 - Personal history of other diseases of the digestive system (ICD-10) Meds Home Medications and Allergies Home Medications ?Medication ?Instructions ?Recorded ?Confirmed ?Type aspirin 81 mg capsule 81 mg PO DAILY 08/26/23 04/06/24 History calcium-magnesium 300 mg-300 mg 1 tab PO DAILY 08/26/23 04/06/24 History tablet cholecalciferol (vitamin D3) 50 50 mcg PO BID 08/26/23 04/06/24 History mcg (2,000 unit) capsule citalopram 20 mg tablet 20 mg PO DAILY 08/26/23 04/06/24 History cyanocobalamin (vitamin B-12) 1,000 mcg PO DAILY 08/26/23 04/06/24 History 1,000 mcg capsule docusate sodium 100 mg capsule 100 mg PO DAILY 08/26/23 04/06/24 History estradiol 0.01% (0.1 mg/gram) 1 g vaginal QWEEK 08/26/23 04/06/24 History vaginal cream fexofenadine 180 mg tablet 180 mg PO DAILY 08/26/23 04/06/24 History fluticasone propionate 50 1 spray intranasal DAILY PRN 08/26/23 04/06/24 History mcg/actuation nasal allergy symptoms spray,suspension levothyroxine 50 mcg capsule 50 mcg PO DAILY 08/26/23 04/06/24 History pilocarpine HCl 5 mg tablet 5 mg PO TID 08/26/23 04/06/24 History pravastatin 40 mg tablet 40 mg PO DAILY 08/26/23 04/06/24 History psyllium husk 0.4 gram capsule 0.4 g PO DAILY 08/26/23 04/06/24 History (Metamucil) topiramate 50 mg tablet 50 mg PO DAILY 08/26/23 04/06/24 History apixaban 5 mg tablet (Eliquis) 5 mg PO BID 02/03/24 04/06/24 History diltiazem HCl 120 mg tablet 120 mg PO Q8H 02/03/24 04/06/24 History (Cardizem) diltiazem HCl 120 mg 120 mg PO Q24H 03/25/24 04/06/24 History capsule,extended release 24 hr Allergies Allergy/AdvReac Type Severity Reaction Status Date / Time latex Allergy Irritable Verified 04/06/24 09:30 morphine Allergy Vomiting Verified 04/06/24 09:30 Sulfa (Sulfonamide Allergy Rash Verified 04/06/24 09:30 Antibiotics) Exam Constitutional Documenting provider has reviewed patient's vital signs: yes Common normals: no apparent distress, oriented x3, healthy appearing, alert and well nourished General appearance: cooperative HENGA Common normals: normocephalic, hearing grossly normal bilaterally and moist oral mucous membranes Head and scalp: normocephalic Eye Common normals: PERRL Pupil: PERRL Neck & C-Spine Common normals: full ROM General: normal visual inspection Chest Common normals: inspection of chest normal Respiratory Common normals: normal respiratory effort, no retractions and no use of accessory muscles Back & Pelvis Lumbar spine/lower back: normal to inspection, ROM limited, pain with ROM and straight leg raise negative bilaterally Sacroiliac joints: SI joints normal Other: pain over L4-S1 facet joints increased pain with bilateral facet loading strength 5/5 in BLE sensation intact BLE negative bilateral SIJ thomas(patricks), gaenslens, thigh thrust, compression test Extremity Common normals: normal to inspection and full ROM Neuro Common normals: oriented x3, CN's II-XII intact bilaterally, moves all extremities, no focal motor deficits, no sensory deficits noted and deep tendon reflexes 2+ bilaterally Sensorium/orientation: alert Motor exam: strength 5/5 throughout and no movement abnormalities noted Psych Common normals: mental status grossly normal, thought process normal, cooperative, affect normal, speech normal and activity/motor behavior normal Speech: normal speech Thought process: normal thought process Results Additional Findings Additional findings: If on a controlled substance or opioids, I have checked an [place] report on this patient and there are no aberrancies noted in the prescribing history.??If on a controlled substance or opioid a drug screen was completed and reviewed within the last year, and if there has not been a drug screen completed we ordered one today to monitor higher risk, state monitored pain medication use. As part of providing excellent, safe, comprehensive care, the following was completed at our patient's visit: 1. A medication reconciliation and review to ensure accurate knowledge of current/active medications, including asking our patients to inform us about any [id number] medications or herbal remedies/nutritional supplements/alternative remedies. 2. A review to specifically ensure our patients have had annual screening for screening for depression, screening for tobacco use, and screening for unhealthy alcohol use. For concerning screenings had a discussion with the patient, provided patient education, and recommended follow-up with primary care provider when appropriate. If patient noted with a risk of falling, they received education on strength, gait, and balance training to prevent future risk of falling. Assessment and Plan Assessment and Plan (1) Lumbar stenosis with neurogenic claudication: Assessment and Plan: >50% improvement ongoing (2) Sacroiliac joint dysfunction of both sides: Assessment and Plan: >50% improvement ongoing (3) Lumbar spondylosis: (4) Frequent falls: Assessment and Plan: i recommended PT assessment and therapy for frequent falls, patient declining. continue to utilize cane, declining walker. patient on eliquis and has notable bruising, encouraged to f/u with PCP. Patient to continue HEP as tolerated. Plan proceed with bilateral L4-5 L5-S1 RFA under fluoroscopy for residual axial low back pain, to be completed with 10mg PO valium 30-60mins prior to procedure. ris ks vs benefits reviewed lumbar xray with flexion reviewed and appropriate continue current medications, cannot take NSAIDs due to CKD f/u 1 month after RFA
== END 2024-04-08 13:06 | disposition home or self-care (01) ==
LOC: PM 13:05
PROVIDERS: PCP Family Medicine; Visit Provider Nurse Practitioner
DX: M48.062 Spinal stenosis, lumbar region with neurogenic claudication (principal); M53.3 Sacrococcygeal disorders, not elsewhere classified; M47.816 Spondylosis without myelopathy or radiculopathy, lumbar region; R29.6 Repeated falls
CPT/HCPCS: G0463

== ENCOUNTER 2024-04-20 07:28 | Day surgery (SDC) | payer MEDICARE, SELFPAY ==
--- OUTSIDE RECORDS SUMMARY | 2024-04-20 07:35 | XMS_ITS | CCD ---
Author Organization [facility] Inform ion Partnership [facility] Care Team Providers Care Price Checker Name Role Phone JAMISON OWENS Unavailable Unavailable ANDREWS FISH Unavailable Unavailable LANIE PRINCE Unavailable Unavailable ANDREWS FISH Unavailable Unavailable Roni Dahl Primary Care Provider [phone] Roni Dahl Primary Care Provider [phone] [...] Care Provider MD Yanelis Garcia Attending Provider [phone] MD Daniel Hylton Attending Provider Tara Patel Unavailable Roni Dahl MD L Primary Care Provider MD Roni Dahl Primary Care Provider MD Yanelis Garcia Attending Provider DILIP Vasquez Emergency Provider [phone] MD Mukul Wilson Attending Provider [phone] Mukul Wilson Unavailable NABILA, RONI L Primary [...] Roni Dahl MD L. Primary Care Provider [phone] MARY SUE Attending Unavail able VERHOJOLENE, RONI L. Primary Care Unavailable GRAYSON HUTCHINSON JR. Admitting Unavail able ANDRE ROWE Referring Unavailable VERHOFF, RONI L. Primary Care Unavailable GRAYSON HUTCHINSON JR. Attending Unavail able MD Roni Dahl Primary Care Provider DILIP Vasquez Emergency Provider MD Mukul Wilson Attending Provider MD Yanelis Garcia Attending Provider MD Obie Hylton Attending Provider MD Roni Dahl Primary Care Provider [phone] DENISHA Sanchez Attending Provider VERHOFF, RONI L Primary Care Unavailable ELGAFY, XU K Referring Unavailable VERHOFF, RONI L Primary Care Unavailable ELGAFY, XU K Referring Unavailable VERHOFF, RONI L Primary Care Unavailable YANELIS GUZMAN Referring Unavailable YANELIS GUMZAN Attending Unavailable VERHOFF, RONI L Primary Care [...] VERHOFF, RONI L Primary Care Unavailable VIGESAA, ERAGAN S Referring Unavailable VERHOFF, RONI L Primary [...] RONI L Primary Care Unavailable JOHN PAUL MAYIFELD Referring Unavailable MD Nabila [place] Primary Care Provider [phone] MD Obie Hylton Attending Provider Davion Olivares [...] Admitting Unavailable Obie Hylton Attending Unavailable Nabila [facility] Unavailable Kimberly STEINER, Trevon Ko Attending Unavailable Nabila STEINER, [facility] Unavailab dixon Harris MD, Andrius Ko Attending Unavailable Nabila STEINER, [facility] Unavailab dixon Harris MD, Andrius Ko Attending Unavailable Nabila STEINER, [facility] Unavailab dixon Harris MD, Andrius Ko Attending Unavailable Nabila STEINER, [facility] Unavailab dixon Dahl MD, [facility] Unavailab idxon Harris MD, Andrius Ko Attending Unavailable Kimberly STEINER, Andrius Ko Attending Unavailable Nabila STEINER, [facility] Unavailab dixon Harris MD, Andrius Ko Attending Unavailable Nabila STEINER, [facility] Unavailab le Allergies Allergy Classification Reported Allergen(s) Allergy Type Date of Onset Reaction(s) Facility hydroCHLOROthiazide (6 sources) hydroCHLOROthiazide Drug Allergy 2019 Rash [facility] Latex (6 sources) Latex Substance Allergy 2010 Itching [facility] NSAIDs (6 sources) Ibuprofen Drug Allergy 2018 Rash [facility] Opioid Agonists (6 sources) Morphine Drug Allergy 2010 Other (See Comments) [facility] Serotonin Reuptake Inhibitors (SSRIs) (6 sources) Escitalopram Drug Allergy 2014 Itching, Rash [facility] Sulfonamides (antibiotic) (12 sources) Sulfonamides (Antibiotic) Drug Allergy 2007 Other (See Comments), Itching [facility] Sulfur (6 sources) Sulfur Drug Allergy 2019 Itching [facility] Triamterene (6 sources) Triamterene Drug Allergy 2018 Rash [facility] WHEAT DEXTRIN (6 sources) WHEAT DEXTRIN Drug Allergy 2010 [facility] (1 source) escitalopram; Translations: [ESCITALOPRAM OXALATE] Drug Allergy 2007 [facility] Repository (20 sources) morphine; Translations: [MORPHINE] Drug Allergy 2007 Other (See Comments), Vomiting (disorder), GI Intolerance [facility] Repository (5 sources) Sulfonamides (Antibiotic); Translations: [SULFA (SULFONAMIDE ANTIBIOTICS)] Propensity to adverse reactions to drug (disorder) 2007 Hives [facility] Repository (1 source) GLUTEN FLOUR; Translations: [GLUTEN FLOUR] Propensity to adverse reactions to food (disorder) 2017 [facility] Repository (20 sources) Escitalopram; Translations: [ESCITALOPRAM] Drug Allergy 2007 Itching, Rash [place] (20 sources) Ibuprofen; Translations: [ibuprofen] Drug Allergy 2018 [place] (20 sources) Latex; Translations: [LATEX] Propensity to adverse reactions to drug 2010 Itching, Eruption of skin (disorder), Rash, Other (See Comments) [place] (20 sources) Sulfonamides (Antibiotic) Propensity to adverse reactions to drug 2007 Other (See Comments) [place] (20 sources) Triamterene; Translations: [triamterene] Drug Allergy 2018 Rash, Eruption of skin (disorder) [place] (20 sources) WHEAT DEXTRIN; Translations: [Wheat] Drug Allergy 2010 [place] (20 sources) hydroCHLOROthiazide; Translations: [HYDROCHLOROTHIAZIDE] Drug Allergy 2018 [place] (20 sources) Sulfacetamide Drug Allergy 2018 [place] (20 sources) Sulfur Drug Allergy 2018 [place] (20 sources) Food Propensity to adverse reactions to drug 2021 [facility] (10 sources) Gluten; Translations: [Glutens] Food allergy Upset stomach (finding) [facility] (9 sources) Sulfamethoxazole; Translations: [sulfamethoxazole] Drug Allergy Eruption of skin (disorder) [facility] (9 sources) Sulfamethoxazole / Trimethoprim; Translations: [sulfamethoxazole-tri methoprim] Drug Allergy Rash [facility] (16 sources) Sulfacetamide / Sulfur Drug Allergy Unknown [employer] Other (12 sources) Sulfonamides (Antibiotic) Propensity to adverse reactions to drug 2007 Other (See Comments) [employer] (7 sources) Naproxen; Translations: [naproxen] Drug Allergy Unknown [facility] (11 sources) Wheat gluten extract Drug Allergy 2022 Nausea And Vomiting [facility] [employer] (2 sources) Morphine Drug Allergy Unknown [employer] Other (1 source) Sulfamethoxazole / Trimethoprim; Translations: [SULFAMETHOXAZOLE-TRI METHOPRIM] Drug Allergy 2022 [facility] Repository (1 source) Wheat bran; Translations: [WHEAT BRAN] Propensity to adverse reactions to drug (disorder) 2010 [facility] Repository (1 source) GLUTEN PROTEIN; Translations: [GLUTEN PROTEIN] Propensity to adverse reactions to drug (disorder) 2017 [facility] Repository (1 source) Escitalopram Drug Allergy 2022 [facility] Repository (1 source) hydroCHLOROthiazide Drug Allergy 2022 [facility] Repository (1 source) Ibuprofen Drug Allergy 2022 [facility] Repository (1 source) Latex Drug allergy (disorder) 2022 [facility] Repository (1 source) Sulfacetamide Drug Allergy 2022 [facility] Repository (1 source) Sulfur Drug Allergy 2022 [facility] Repository (1 source) Triamterene Drug Allergy 2022 [facility] Repository (1 source) Sulfonamides (Antibiotic); Translations: [sulfa drugs] Propensity to adverse reactions to drug (disorder) [facility] Repository Medications Current Medications Medication Drug Class(es) [...] for pain Dx: M75.101 Duration: 7 days, [facility]/pharmacy #[id number], 162, cm, 07/17/21 12:14:00 EST, Height/Length Dosing, 105.2, kg, 07/17/21 12:14:00 EST, We[place]... Start Date: 07/28/21 Status: Ordered Start: 07-28-2021 Percocet 325 m g-5 mg Tab See Instructions, as needed for pain, 40 tab(s), Refill(s) 0, 1-2 orally every 4-6hrs as needed for pain Dx: M75.101 Duration: 7 days, [facility]/pharmacy #[id number], 162, cm, 07/17/21 12:14:00 EST, Height/Length [...] INTRANASAL Twice daily January 10, 2018 12:00am Fajbdfhdzm-Gkylydrjuwk-IsIy (16 sources) Azelastine-Fluti casone-NaCl Active azithromycin 250 [...] Start: 05-07-2023 take 1 tablet by [facility] twice daily diclofenac (VOLTAREN) 50 MG EC [...] Start: 05-20-2019 take 1 capsule by [facility] once daily Docusate Sodium (Colace) [...] # 90 tab(s), Refills(s) 6, Pharmacy: [facility] #[id number], 162, cm, 09/16/23 10:47:00 EDT, Height/Length Dosing, [...] 0 05/30/2019 Active fluticasone 0.05 mg/inh Nasal [place] (8 sources) Start: 03-01-2021 fluticasone 0.05 mg/inh Nasal [place] 50 mcg, Nasal, Daily, Refill(s) 0, Allergy symptoms Start Date: 03/01/21 Status: Ordered gabapentin 300 mg oral capsule (1 source) Anti-epileptic Agent Start: 05-27-2023 gabapentin (NEURONTIN) 300 MG capsule hydroCHLOROthiazide 25 mg / triamterene 37.5 mg oral capsule (20 sources) Potassium-spar ing Diuretic, Thiazide Diuretic Start: 06-27-2022 take 1 capsule by mouth once daily Triamterene-[place] chlorothiazid Active 1 CAP PO Daily June [...] 20 capsule 0 10/14/2021 10/24/2021 Active nystatin 584791 unt/ml oral suspension (20 sources) Polyene Antifungal Start: 10-18-2023 End: 10-28-2023 take 5 mL by mouth four times daily nystatin (MYCOSTATIN) 736702 UNIT/ML suspension Take 5 mLs by mouth 4 times daily for 10 days Swish and swallow 200 mL 0 10/18/2023 10/28/2023 Active Start: 01-30-2023 take 4 mL by mouth f our times daily Nystatin 283577 UNIT/ML 4 ml swish and swallow Mouth/Throat Four times a day for 14 days Jan, Not-Taking Start: 12-20-2022 take 5 mL by mouth f our times daily nystatin (MYCOSTATIN) 667405 UNIT/ML suspension Take 5 mLs by mouth 4 times daily Swish and swallow. 200 mL 0 02/27/2023 Active Start: 11-25-2022 End: 11-25-2022 take 5 mL by mouth four times daily nystatin (MYCOSTATIN) 551887 UNIT/ML suspension Take 5 mLs by mouth 4 times daily Swish and swallow. 200 mL 0 11/25/2022 11/25/2022 Discontinued (DUPLICATE) Start: 08-15-2022 take 5 mL by mouth f our times daily nystatin (MYCOSTATIN) 926686 UNIT/ML suspension take 5 milliliters by mouth four times a day as directed 60 mL 2 08/15/2022 Active Start: 05-29-2022 take 5 mL by mouth f our times daily nystatin (MYCOSTATIN) 471170 UNIT/ML suspension Take 5 mLs by mouth 4 times daily 60 mL 2 05/29/2022 Active Start: 05-29-2022 Nystatin Activ e 1 UNIT MUCOUS MEM Twice daily May 29, 2022 1:00am Start: 02-08-2022 nystatin (MYCO STATIN) 561721 UNIT/GM cream Apply topically 2 times daily Apply topically 2 times daily. 60 g 0 02/08/2022 Active Start: 02-27-2021 take 5 mL by mouth f our times daily nystatin (MYCOSTATIN) 267587 UNIT/ML suspension Take 5 mLs by mouth 4 times daily 150 mL 0 02/27/2021 Active Nystatin 990922 units/g (4 sources) Nystatin 047107 units/g applied topically as directed four times [...] day(s), # 180 tab(s), Refills(s) 3, Pharmacy: [facility] [id number], 162, cm, 07/10/22 14:20:00 EST, Height/Length Dosing, [...] Atrial flutter; Translations: [Atypical atrial flutter] Onset: 04-24-202 4 Resolved: 0 07-11-2017 Chronic Cataract (20 [...] [Polyp of colon] Onset: 4 Episodic Other [employer] infection and poliomyelitis (8 sources) H/O: poliomyelitis [...] ALT [Catalytic activity/Vol] 10 U/L Normal 7-52 [facility] Comment on above: Performed By: #### C 3, CH50, C4 #### [facility] , #### ESR, CMP, CBC, ADDONUAPLUS #### [address] Albumin [Mass/volume] in Ser um or Plasma by Bromocresol green (BCG) dye binding methoOrdered By: Obie Hylton on 12-19-2023 Albumin BCG dye [Mass/Vol] 3.9 g/dL 3.5-5.7 [facility] Alkaline phosphatase [Enzyma tic activity/volume] in Serum or PlasmaOrdered By: Obie Hylton on 12-19-2023 ALP [Catalytic activity/Vol] 56 U/L Normal 34-104 [facility] Comment on above: Result Comment: PERF ORMED BY: [place] [address] PATHOLOGIST SUPERVISOR COOK ROOM MANUEL PABON M.D. Performed By: #### C 3, CH50, C4 #### [facility] , #### ESR, CMP, CBC, ADDONUAPLUS #### [address] Aspartate aminotransferase [ Enzymatic activity/volume] in Serum or PlasmaOrdered By: Obie Hylton on 12-19-2023 AST [Catalytic activity/Vol] 13 U/L Normal 13-39 [facility] Comment on above: Performed By: #### C 3, CH50, C4 #### [facility] , #### ESR, CMP, CBC, ADDONUAPLUS #### [address] Automated basophil %Ordered By: Obie Ramirezrow on 12-19-2023 Basophils/100 WBC (Bld) 0.3 % Normal . [facility] Comment on above: Performed By: #### C 3, CH50, C4 #### [facility] , #### ESR, CMP, CBC, ADDONUAPLUS #### [address] Automated basophil countOrde red By: Obie Ramirezrow on 12-19-2023 Basophils (Bld) [#/Vol] 0.0 10*3/uL Normal 0.0-0.2 [facility] Comment on above: Performed By: #### C 3, CH50, C4 #### [facility] , #### ESR, CMP, CBC, ADDONUAPLUS #### [address] Automated blood monocyte cou ntOrdered By: Obie Ramirezrow on 12-19-2023 Monocytes (Bld) [#/Vol] 0.5 10*3/uL Normal 0.0-0.8 [facility] Comment on above: Performed By: #### C 3, CH50, C4 #### [facility] , #### ESR, CMP, CBC, ADDONUAPLUS #### [address] Automated eosinophil %Ordere d By: Obie Ramirezrow on 12-19-2023 Eosinophils/100 WBC (Bld) 2.5 % Normal . [facility] Comment on above: Performed By: #### C 3, CH50, C4 #### [facility] , #### ESR, CMP, CBC, ADDONUAPLUS #### [address] Automated eosinophil countOr dered By: Obieradha Hylton on 12-19-2023 Eosinophils (Bld) [#/Vol] 0.1 10*3/uL Normal 0.0-0.45 [facility] Comment on above: Performed By: #### C 3, CH50, C4 #### [facility] , #### ESR, CMP, CBC, ADDONUAPLUS #### [address] Automated monocyte %Ordered By: Obie Hylton on 12-19-2023 Monocytes/100 WBC (Bld) 9.2 % Normal . [facility] Comment on above: Performed By: #### C 3, CH50, C4 #### [facility] , #### ESR, CMP, CBC, ADDONUAPLUS #### [facility] [address] [place] [address] Automated neutrophil %Ordere d By: Obie Hylton on 12-19-2023 Neutrophils/100 WBC (Bld) 70.1 % Normal . [facility] Comment on above: Performed By: #### C 3, CH50, C4 #### [facility] , #### ESR, CMP, CBC, ADDONUAPLUS #### [address] Bacteria [Presence] in Urine sediment by Light microscopyOrdered By: Obie Hylton on 12-19-2023 Bacteria LM Ql (Urine sed) Rare [HPF] High None Seen [facility] Bilirubin Test strip Ql (U)O rdered By: Obie Hylton on 12-19-2023 Bilirubin Ql (U) Negative Negative [facility] Bilirubin.total [Mass/volume ] in Serum or PlasmaOrdered By: Obie Hylton on 12-19-2023 Bilirubin [Mass/Vol] 0.4 mg/dL Normal 0.3-1.0 [facility] Comment on above: Performed By: #### C 3, CH50, C4 #### [facility] , #### ESR, CMP, CBC, ADDONUAPLUS #### [facility] [address] [place] [address] [place] Calcium [Mass/volume] in Ser um or PlasmaOrdered By: Obie Ramirezrow on 12-19-2023 Calcium [Mass/Vol] 9.1 mg/dL Normal 8.6-10.3 [facility] Comment on above: Performed By: #### C 3, CH50, C4 #### [facility] , #### ESR, CMP, CBC, ADDONUAPLUS #### [facility] [address] [place] [address] [place] Carbon dioxide, total [Moles /volume] in Serum or PlasmaOrdered By: Obie Warner on 12-19-2023 CO2 [Moles/Vol] 27.0 mmol/L Normal 21.0-31.0 [facility] Comment on above: Performed By: #### C 3, CH50, C4 #### [facility] , #### ESR, CMP, CBC, ADDONUAPLUS #### [facility] [address] [place] [address] [place] Chloride [Moles/volume] in S liat or PlasmaOrdered By: Obie Warner on 12-19-2023 Chloride [Moles/Vol] 107 mmol/L Normal 98-107 [facility] Comment on above: Performed By: #### C 3, CH50, C4 #### [facility] , #### ESR, CMP, CBC, ADDONUAPLUS #### [facility] [address] [place] [address] [place] Color of Urine by AutoOrdere d By: Obie Warner on 12-19-2023 Color (U) Light-yellow Normal Yellow [facility] Comment on above: Order Comment: Name Collection Type:: Clean-Voided Midstream Performed By: #### C 3, CH50, C4 #### [facility] , #### ESR, CMP, CBC, ADDONUAPLUS #### [address] Complement C3on 12-19-2023 Complement C3 120 mg/dL Normal 82-167 [facility] Comment on above: Result Comment: Perf ormed at: [address] [id number] Life Enrichment Assistant: Usman Draper PhD, Phone: [phone] Performed By: #### C 3, CH50, C4 #### [facility] , #### ESR, CMP, CBC, ADDONUAPLUS #### [address] Complement C4on 12-19-2023 Complement C4 22 mg/dL Normal 12-38 [facility] Comment on above: Result Comment: PERF ORMED BY: [place] [address] PATHOLOGIST SUPERVISOR COOK ROOM MANUEL PABON M.D. Performed By: #### C 3, CH50, C4 #### [facility] , #### ESR, CMP, CBC, ADDONUAPLUS #### [address] Complement Total (CH50)on Complement Total (CH50) 57 Normal >41 [facility] Comment on above: Result Comment: [...] determine out of range values. Performed at: [facility] [address] [id number] Life Enrichment Assistant: Usman Draper PhD, Phone: [phone] PERFORMED BY: [place] [address] PATHOLOGIST SUPERVISOR COOK ROOM MANUEL PABON M.D. Performed By: #### C 3, CH50, C4 #### [facility] , #### ESR, CMP, CBC, ADDONUAPLUS #### [address] Complete Blood Count Auto Di ffon 12-19-2023 Mean Corpuscular HGB Conc 33.8 g/dL Normal 32.0-35.0 [facility] Comment on above: Performed By: #### C 3, CH50, C4 #### [facility] , #### ESR, CMP, CBC, ADDONUAPLUS #### [address] NRBC% 0.2 /100{WBC} Normal 0-0.5 [facility] Comment on above: Performed By: #### C 3, CH50, C4 #### [facility] , #### ESR, CMP, CBC, ADDONUAPLUS #### [address] Comprehensive Metabolic Pane trevor 12-19-2023 Albumin [Mass/Vol] 3.9 g/dL Normal 3.5-5.7 [facility] Comment on above: Performed By: #### C 3, CH50, C4 #### [facility] , #### ESR, CMP, CBC, ADDONUAPLUS #### [address] GFR/1.73 sq M.predicted MDRD (S/P/Bld) [Vol rate/Area] 47.958 mL/min/{1.73_m2} Normal [facility] Comment on above: Performed By: #### C 3, CH50, C4 #### [facility] , #### ESR, CMP, CBC, ADDONUAPLUS #### [address] Creatinine [Mass/volume] in Serum or PlasmaOrdered By: Obie Hylton on 12-19-2023 Creatinine [Mass/Vol] 1.16 mg/dL Normal 0.60-1.20 [facility] Comment on above: Performed By: #### C 3, CH50, C4 #### [facility] , #### ESR, CMP, CBC, ADDONUAPLUS #### [address] Dipstick and Microscopicon 0 12-19-2023 Bacteria,Urine Rare High None Seen [facility] Comment on above: Order Comment: Name Collection Type:: Clean-Voided Midstream Result Comment: PERF ORMED BY: [place] [address] PATHOLOGIST SUPERVISOR COOK ROOM MANUEL PABON M.D. Performed By: #### C 3, CH50, C4 #### [facility] , #### ESR, CMP, CBC, ADDONUAPLUS #### [address] Bilirubin,Urine Negative Normal Negative [facility] Comment on above: Order Comment: Name Collection Type:: Clean-Voided Midstream Performed By: #### C 3, CH50, C4 #### [facility] , #### ESR, CMP, CBC, ADDONUAPLUS #### [address] Glucose Ql (U) Normal Normal Normal [facility] Comment on above: Order Comment: Name Collection Type:: Clean-Voided Midstream Performed By: #### C 3, CH50, C4 #### [facility] , #### ESR, CMP, CBC, ADDONUAPLUS #### [place] [address] [place] Nitrite,Urine Negative Normal Negative [facility] Comment on above: Order Comment: Name Collection Type:: Clean-Voided Midstream Performed By: #### C 3, CH50, C4 #### [facility] , #### ESR, CMP, CBC, ADDONUAPLUS #### [facility] [address] [place] [address] Occult Blood,Urine Negative Normal Negative [facility] Comment on above: Order Comment: Name Collection Type:: Clean-Voided Midstream Performed By: #### C 3, CH50, C4 #### [facility] , #### ESR, CMP, CBC, ADDONUAPLUS #### [facility] [address] [place] [address] Protein,Urine Negative Normal Negative [facility] Comment on above: Order Comment: Name Collection Type:: Clean-Voided Midstream Performed By: #### C 3, CH50, C4 #### [facility] , #### ESR, CMP, CBC, ADDONUAPLUS #### [facility] [address] [place] [address] RBC,Urine None Seen Normal 0-4 [facility] Comment on above: Order Comment: Name Collection Type:: Clean-Voided Midstream Performed By: #### C 3, CH50, C4 #### [facility] , #### ESR, CMP, CBC, ADDONUAPLUS #### [address] Specificy [place],Urine 1.020 Normal 1.001-1.03 0 [facility] Comment on above: Order Comment: Name Collection Type:: Clean-Voided Midstream Performed By: #### C 3, CH50, C4 #### [facility] , #### ESR, CMP, CBC, ADDONUAPLUS #### [address] Squamous Epithelial Cell,Urine 0-1 Normal 0-2 [facility] Comment on above: Order Comment: Name Collection Type:: Clean-Voided Midstream Performed By: #### C 3, CH50, C4 #### [facility] , #### ESR, CMP, CBC, ADDONUAPLUS #### [address] Urobilinogen,Urine Normal Normal Normal [facility] Comment on above: Order Comment: Name Collection Type:: Clean-Voided Midstream Performed By: #### C 3, CH50, C4 #### [facility] , #### ESR, CMP, CBC, ADDONUAPLUS #### [address] WBC,Urine None Seen Normal 0-4 [facility] Comment on above: Order Comment: Name Collection Type:: Clean-Voided Midstream Performed By: #### C 3, CH50, C4 #### [facility] , #### ESR, CMP, CBC, ADDONUAPLUS #### [address] Epithelial cells.squamous [# /area] in Urine sediment by Microscopy high power fieldOrdered By: Obie Hylton on 12-19-2023 Epithelial cells.squamous LM.HPF (Urine sed) [#/Area] 0-1 [HPF] 0-2 [facility] Erythrocyte Sedimentation Ra heather 12-19-2023 ESR (Bld) [Velocity] 12 mm/h Normal 0-29 [facility] Comment on above: Result Comment: PERF ORMED BY: [place] [address] PATHOLOGIST SUPERVISOR COOK ROOM MANUEL PABON M.D. Performed By: #### C 3, CH50, C4 #### [facility] , #### ESR, CMP, CBC, ADDONUAPLUS #### [address] Erythrocyte distribution wid th [Ratio] by Automated countOrdered By: Obie Hylton on 12-19-2023 Erythrocyte distribution width (RBC) [Ratio] 15.0 % Normal 11.9-15.3 [facility] Comment on above: Performed By: #### C 3, CH50, C4 #### [facility] , #### ESR, CMP, CBC, ADDONUAPLUS #### [facility] [address] [place] [address] Erythrocyte sedimentation ra te by Photometric methodOrdered By: Obie Hylton on 12-19-2023 ESR Photometric method (Bld) [Velocity] 12 mm/hr 0-29 [facility] Erythrocytes [#/area] in Uri ne sediment by Microscopy high power fieldOrdered By: Obie Hylton on 12-19-2023 RBC LM.HPF (Urine sed) [#/Area] None seen [HPF] 0-4 [facility] Erythrocytes [#/volume] in B lood by Automated countOrdered By: Obie Hylton on 12-19-2023 RBC (Bld) [#/Vol] 3.56 10*6/uL Low 3.60-5.00 [facility] Comment on above: Performed By: #### C 3, CH50, C4 #### [facility] , #### ESR, CMP, CBC, ADDONUAPLUS #### [facility] [address] [place] [address] Glucose [Mass/volume] in Ser um or PlasmaOrdered By: Obie Hylton on 12-19-2023 Glucose [Mass/Vol] 92 mg/dL Normal 70-100 [facility] Comment on above: ADA recommended refe rence rangeRandom Glucose Reference Range is dependent on time and content of last meal. Glucose of more than 200 mg/dL in a nonstressed, ambulatory subject supports the diagnosis of Diabetes Mellitus. Result Comment: [place] om Glucose Reference Range is dependent on time and content of last meal. Glucose of more than 200 mg/dL in a nonstressed, ambulatory subject supports the diagnosis of Diabetes Mellitus. ADA recommended reference range Performed By: #### C 3, CH50, C4 #### [facility] , #### ESR, CMP, CBC, ADDONUAPLUS #### [place] [address] [place] Glucose [Mass/volume] in Uri ne by Test stripOrdered By: Obie Hylton on 12-19-2023 Glucose Test strip (U) [Mass/Vol] Normal mg/dL Normal [facility] Hematocrit [Volume Fraction] of Blood by Automated countOrdered By: Obie Hylton on 12-19-2023 Hematocrit (Bld) [Volume fraction] 33.2 % Low 34.0-46.4 [facility] Comment on above: Performed By: #### C 3, CH50, C4 #### [facility] , #### ESR, CMP, CBC, ADDONUAPLUS #### [address] Hemoglobin Test strip Ql (U) Ordered By: Obie Ramirezrow on 12-19-2023 Hemoglobin Ql (U) Negative Negative [facility] Hemoglobin [Mass/volume] in BloodOrdered By: Obie Ramirezrow on 12-19-2023 Hemoglobin (Bld) [Mass/Vol] 11.2 g/dL Low 11.8-15.4 [facility] Comment on above: Performed By: #### C 3, CH50, C4 #### [facility] , #### ESR, CMP, CBC, ADDONUAPLUS #### [place] [address] [place] Ketones [Presence] in Urine by Test stripOrdered By: Obie Ramirezrow on 12-19-2023 Ketones Ql (U) Negative Normal Negative [facility] Comment on above: Order Comment: Name Collection Type:: Clean-Voided Midstream Performed By: #### C 3, CH50, C4 #### [facility] , #### ESR, CMP, CBC, ADDONUAPLUS #### [place] [address] [place] Leukocyte esterase [Presence ] in Urine by Test stripOrdered By: Obie Ramirezrow on 12-19-2023 Leukocyte esterase Test strip Ql (U) Negative Normal Negative [facility] Comment on above: Order Comment: Name Collection Type:: Clean-Voided Midstream Performed By: #### C 3, CH50, C4 #### [facility] , #### ESR, CMP, CBC, ADDONUAPLUS #### [facility] [address] [place] [address] Leukocytes [#/area] in Urine sediment by Microscopy high power fieldOrdered By: Obie Hylton on 12-19-2023 WBC LM.HPF (Urine sed) [#/Area] None seen [HPF] 0-4 [facility] Leukocytes [#/volume] correc pepito for nucleated erythrocytes in Blood by Automated counOrdered By: Obie Hylton on 12-19-2023 WBC corrected for nucl RBC Auto (Bld) [#/Vol] 5.9 10*3/uL 3.8-11.6 [facility] Leukocytes [#/volume] in Blo od by Automated countOrdered By: Obie Hylton on 12-19-2023 WBC (Bld) [#/Vol] 5.9 10*3/uL Normal 3.8-11.6 [facility] Comment on above: Performed By: #### C 3, CH50, C4 #### [facility] , #### ESR, CMP, CBC, ADDONUAPLUS #### [facility] [address] [place] [address] [place] Lymphocytes [#/volume] in Bl ood by Automated countOrdered By: Obie Hylton on 12-19-2023 Lymphocytes (Bld) [#/Vol] 1.1 10*3/uL Normal 1.00-4.8 [facility] Comment on above: Performed By: #### C 3, CH50, C4 #### [facility] , #### ESR, CMP, CBC, ADDONUAPLUS #### [facility] [address] [place] [address] [place] Lymphocytes/100 leukocytes i n Blood by Automated countOrdered By: Obie Hylton on 12-19-2023 Lymphocytes/100 WBC (Bld) 17.9 % Normal . [facility] Comment on above: Performed By: #### C 3, CH50, C4 #### [facility] , #### ESR, CMP, CBC, ADDONUAPLUS #### [facility] [address] [place] [address] MCH [Entitic mass] by Automa pepito countOrdered By: Obie Hylton on 12-19-2023 MCH (RBC) [Entitic mass] 31.5 pg Normal 24.7-34.3 [facility] Comment on above: Performed By: #### C 3, CH50, C4 #### [facility] , #### ESR, CMP, CBC, ADDONUAPLUS #### [address] MCHC Auto (RBC) [Mass/Vol]Or dered By: Obie Hylton on 12-19-2023 MCHC (RBC) [Mass/Vol] 33.8 g/dL 32.0-35.0 [facility] MCV [Entitic volume] by Auto mated countOrdered By: Obie Hylton on 12-19-2023 MCV (RBC) [Entitic vol] 93.2 fL Normal 80-100 [facility] Comment on above: Performed By: #### C 3, CH50, C4 #### [facility] , #### ESR, CMP, CBC, ADDONUAPLUS #### [address] Neutrophils [#/volume] in Bl ood by Automated countOrdered By: Obie Hylton on 12-19-2023 Neutrophils (Bld) [#/Vol] 4.1 10*3/uL Normal 1.8-7.7 [facility] Comment on above: Performed By: #### C 3, CH50, C4 #### [facility] , #### ESR, CMP, CBC, ADDONUAPLUS #### [address] Nitrite Test strip Ql (U)Ord ered By: Obie Hylton on 12-19-2023 Nitrite Ql (U) Negative Negative [facility] No Panel InformationOrdered By: Obie Hylton on 12-19-2023 Estimated GFR (CKD-EPI) 47.958 mL/Min [facility] Creatinine Clearance (Chem N/A [facility] Total Complement (CH50) 57 U/mL >41 [facility] Comment on above: Age Male Female [...] to determine out of range values.Performed at: [facility] [address] [id number] Director: Usman Draper PhD, Phone: [phone] Nucleated erythrocytes [Pres ence] in Blood by Automated countOrdered By: Obie Ramirezrow on 12-19-2023 Nucleated RBC Auto Ql (Bld) 0.2 /100{WBC} 0-0.5 [facility] Platelet mean volume [Entiti c volume] in Blood by Automated countOrdered By: Obie Ramirezrow on 12-19-2023 Platelet mean volume (Bld) [Entitic vol] 8.7 fL Normal 6.3-10.7 [facility] Comment on above: Performed By: #### C 3, CH50, C4 #### [facility] , #### ESR, CMP, CBC, ADDONUAPLUS #### [facility] [address] [place] [address] Platelets [#/volume] in Bloo d by Automated countOrdered By: Obie Warner on 12-19-2023 Platelets (Bld) [#/Vol] 201 10*3/uL Normal 150-450 [facility] Comment on above: Performed By: #### C 3, CH50, C4 #### [facility] , #### ESR, CMP, CBC, ADDONUAPLUS #### [facility] [address] [place] [address] Potassium [Moles/volume] in Serum or PlasmaOrdered By: Obie Ramirezrow on 12-19-2023 Potassium [Moles/Vol] 4.3 mmol/L Normal 3.5-5.1 [facility] Comment on above: Performed By: #### C 3, CH50, C4 #### [facility] , #### ESR, CMP, CBC, ADDONUAPLUS #### [address] Protein Test strip (U) [Mass /Vol]Ordered By: Obie Ramirezrow on 12-19-2023 Protein (U) [Mass/Vol] Negative Negative [facility] Protein [Mass/volume] in Ser um or PlasmaOrdered By: Obie Ramirezrow on 12-19-2023 Protein [Mass/Vol] 5.9 g/dL Low 6.4-8.9 [facility] Comment on above: Performed By: #### C 3, CH50, C4 #### [facility] , #### ESR, CMP, CBC, ADDONUAPLUS #### [address] Serum globulin measurement b y calculation (mass/volume)Ordered By: Obie Ramirezrow on 12-19-2023 Globulin (S) [Mass/Vol] 2.0 g/dL [facility] Comment on above: Performed By: #### C 3, CH50, C4 #### [facility] , #### ESR, CMP, CBC, ADDONUAPLUS #### [facility] [address] [place] [address] Serum or plasma albumin/glob ulin mass ratioOrdered By: Obie Warner on 12-19-2023 Albumin/Globulin [Mass ratio] 2.0 {ratio} [facility] Comment on above: Performed By: #### C 3, CH50, C4 #### [facility] , #### ESR, CMP, CBC, ADDONUAPLUS #### [place] [address] Serum or plasma anion gap de terminationOrdered By: Obie Hylton on 12-19-2023 Anion gap [Moles/Vol] 9.3 mmol/L Normal 6.0-15.0 [facility] Comment on above: Performed By: #### C 3, CH50, C4 #### [facility] , #### ESR, CMP, CBC, ADDONUAPLUS #### [facility] [address] Serum or plasma complement C 3 measurement (mass/volume)Ordered By: Obie Hylton on 12-19-2023 Complement C3 [Mass/Vol] 120 mg/dL 82-167 [facility] Comment on above: Performed at: [address] [id number] Director: Usman Draper PhD, Phone: [phone] Serum or plasma complement C 4 measurement (mass/volume)Ordered By: Obie Hylton on 12-19-2023 Complement C4 [Mass/Vol] 22 mg/dL 12-38 [facility] Sodium [Moles/volume] in Ser um or PlasmaOrdered By: Obie Hylton on 12-19-2023 Sodium [Moles/Vol] 139 mmol/L Normal 136-145 [facility] Comment on above: Performed By: #### C 3, CH50, C4 #### [facility] , #### ESR, CMP, CBC, ADDONUAPLUS #### [facility] [address] [place] [address] Specific gravity Test strip (U) [Rel density]Ordered By: Obie Hylton on 12-19-2023 Specific gravity (U) [Rel density] 1.020 1.001-1.03 0 [facility] Urea nitrogen [Mass/volume] in Serum or PlasmaOrdered By: Obie Hylton on 12-19-2023 Urea nitrogen [Mass/Vol] 33 mg/dL High 7-25 [facility] Comment on above: Performed By: #### C 3, CH50, C4 #### [facility] , #### ESR, CMP, CBC, ADDONUAPLUS #### [facility] [address] [place] [address] [place] Urine appearanceOrdered By: Obie Warner on 12-19-2023 Appearance (U) Clear Normal Clear [facility] Comment on above: Order Comment: Name Collection Type:: Clean-Voided Midstream Performed By: #### C 3, CH50, C4 #### [facility] , #### ESR, CMP, CBC, ADDONUAPLUS #### [facility] [address] [place] [address] Urobilinogen Test strip (U) [Mass/Vol]Ordered By: Obie Hylton on 12-19-2023 Urobilinogen (U) [Mass/Vol] Normal mg/dL Normal [facility] pH of Urine by Test stripOrd ered By: Obie Hylton on 12-19-2023 pH (U) 5.5 [pH] Normal 5.0-9.0 [facility] Comment on above: Order Comment: Name Collection Type:: Clean-Voided Midstream Performed By: #### C 3, CH50, C4 #### [facility] , #### ESR, CMP, CBC, ADDONUAPLUS #### [facility] [address] [place] [address] Basic Metabolic Profon 12-11 Anion gap [Moles/Vol] 11 mmol/L Normal 03-17 [facility] Comment on above: Performed By: #### B MP, TROPI, CBC, TSH #### [facility] [address] [place] [address] Life Enrichment Assistant: Angelito Muir MD BUN/CRE Ratio 19 Normal 03-20 [facility] Comment on above: Performed By: #### B MP, TROPI, CBC, TSH #### [facility] [address] [place] [address] Life Enrichment Assistant: Angelito Muir MD Calcium [Mass/Vol] 9.1 mg/dL Normal 8.6-10.4 [facility] Comment on above: Performed By: #### B MP, TROPI, CBC, TSH #### [facility] [address] [place], [place] [id number] Life Enrichment Assistant: Angelito Muir MD Chloride [Moles/Vol] 104 mmol/L Normal 98-107 [facility] Comment on above: Performed By: #### B MP, TROPI, CBC, TSH #### [facility] [address] [place] [address] Life Enrichment Assistant: Angelito Muir MD CO2 [Moles/Vol] 22 mmol/L Normal 20-31 [facility] Comment on above: Performed By: #### B MP, TROPI, CBC, TSH #### [facility] [address] [place] [address] Life Enrichment Assistant: Angelito Muir MD Creatinine [Mass/Vol] 1.3 mg/dL High 0.5-0.9 [facility] Comment on above: Performed By: #### B MAIDA TROPI, CBC, TSH #### [facility] [address] [place] [address] Life Enrichment Assistant: Angelito Muir MD GFR/1.73 sq M.predicted among non-blacks MDRD (S/P/Bld) [Vol rate/Area] 42 mL/min/{1.73_m2} Low >60 [facility] Comment on above: Result Comment: [...] #### B MP, TROPI, CBC, TSH #### [facility] [address] [place], [place] [id number] Life Enrichment Assistant: Angelito Muir MD Glucose [Mass/Vol] 88 mg/dL Normal 70-99 [facility] Comment on above: Performed By: #### B MP, TROPI, CBC, TSH #### [facility] [address] [place], [place] [id number] Life Enrichment Assistant: Angelito Muir MD Potassium [Moles/Vol] 4.3 mmol/L Normal 3.7-5.3 [facility] Comment on above: Performed By: #### B MP, TROPI, CBC, TSH #### [facility] [address] [place], [place] [id number] Life Enrichment Assistant: Angelito Muir MD Sodium [Moles/Vol] 137 mmol/L Normal 135-144 [facility] Comment on above: Performed By: #### B MP, TROPI, CBC, TSH #### [facility] [address] [place], [place] [id number] Life Enrichment Assistant: Angelito Muir MD Urea nitrogen [Mass/Vol] 25 mg/dL High 8-23 [facility] Comment on above: Performed By: #### B MP, TROPI, CBC, TSH #### [facility] [address] [place] [address] Life Enrichment Assistant: Angelito Muir MD Basic Metabolic Panel 05-1 Anion gap [Moles/Vol] 13 mmol/L 9 - 17 mmol/L [facility] Calcium [Mass/Vol] 9.1 mg/dL 8.6 - 10. 4 mg/dL [facility] Chloride [Moles/Vol] 104 mmol/L 98 - 10 7 mmol/L [facility] CO2 [Moles/Vol] 20 mmol/L 20 - 31 mmol/L [facility] Creatinine [Mass/Vol] 1.1 mg/dL High 0.5 - 0.9 mg/dL [facility] Est, Glom Filt Rate 51 Low - [facility] Comment on above: These results are not [...] mg/dL High 70 - 99 mg/dL [facility] Interpretation and review of laboratory results Abnormal [facility] Potassium [Moles/Vol] 3.3 mmol/L Low 3.7 - 5.3 mmol/L [facility] Sodium [Moles/Vol] 137 mmol/L 135 - 144 mmol/L [facility] Urea nitrogen [Mass/Vol] 26 mg/dL High 8 - 23 mg/dL [facility] Urea nitrogen/Creatinine [Mass ratio] 24 mg/mg High 9 - 20 [facility] Basic Metabolic Profon 11-13 Anion gap [Moles/Vol] 13 mmol/L Normal 9-17 [facility] Comment on above: Performed By: #### B MP, TROPI, CBC, TSH #### [facility] [address] [place] [address] Life Enrichment Assistant: Angelito Muir MD BUN/CRE Ratio 24 High -20 [facility] Comment on above: Performed By: #### B MP, TROPI, CBC, TSH #### [facility] [address] [place] [id number] Life Enrichment Assistant: Angelito Muir MD Calcium [Mass/Vol] 9.1 mg/dL Normal 8.6-10.4 [facility] Comment on above: Performed By: #### B MP, TROPI, CBC, TSH #### [facility] [address] [place] [id number] Life Enrichment Assistant: Angelito Muir MD Chloride [Moles/Vol] 104 mmol/L Normal 98-107 [facility] Comment on above: Performed By: #### B MP, TROPI, CBC, TSH #### [facility] [address] [place] [address] Life Enrichment Assistant: Angelito Muir MD CO2 [Moles/Vol] 20 mmol/L Normal 20-31 [facility] Comment on above: Performed By: #### B MP, TROPI, CBC, TSH #### [facility] [address] [place] [address] Life Enrichment Assistant: Angelito Muir MD Creatinine [Mass/Vol] 1.1 mg/dL High 0.5-0.9 [facility] Comment on above: Performed By: #### B MAIDA, TROPI, CBC, TSH #### [facility] [address] [place] [address] Life Enrichment Assistant: Angelito Muir MD GFR/1.73 sq M.predicted among non-blacks MDRD (S/P/Bld) [Vol rate/Area] 51 mL/min/{1.73_m2} Low >60 [facility] Comment on above: Result Comment: [...] #### B MP, TROPI, CBC, TSH #### [facility] [address] [place] [address] Life Enrichment Assistant: Angelito Muir MD Glucose [Mass/Vol] 153 mg/dL High 70-99 [facility] Comment on above: Performed By: #### B MP, TROPI, CBC, TSH #### [facility] [address] [place] [address] Life Enrichment Assistant: Angelito Muir MD Potassium [Moles/Vol] 3.3 mmol/L Low 3.7-5.3 [facility] Comment on above: Performed By: #### B MP, TROPI, CBC, TSH #### [facility] [address] [place] [address] Life Enrichment Assistant: Angelito Muir MD Sodium [Moles/Vol] 137 mmol/L Normal 135-144 [facility] Comment on above: Performed By: #### B MP, TROPI, CBC, TSH #### [facility] [address] [place] [phone] Life Enrichment Assistant: Angelito Muir MD Urea nitrogen [Mass/Vol] 26 mg/dL High 8-23 [facility] Comment on above: Performed By: #### B MP, TROPI, CBC, TSH #### [facility] [address] [place] [address] Life Enrichment Assistant: Angelito Muir MD CBCon 11-14-2023 Erythrocyte distribution width (RBC) [Ratio] 14.7 % 12.1 - 15.2 % [facility] Hematocrit (Bld) [Volume fraction] 37.0 % 36.0 - 46.0 % [facility] Hemoglobin (Bld) [Mass/Vol] 12.2 g/dL 12.0 - 16.0 g/dL [facility] Interpretation and review of laboratory results Abnormal [facility] MCH (RBC) [Entitic mass] 31.1 pg 26.0 - 34.0 pg [facility] MCHC (RBC) [Mass/Vol] 33.0 g/dL 31.0 - 37.0 g/dL [facility] MCV (RBC) [Entitic vol] 94.4 fL 80.0 - 100.0 fL [facility] Platelet mean volume (Bld) [Entitic vol] 10.3 fL 6.0 - 12.0 fL [facility] Platelets (Bld) [#/Vol] 179 10*3/uL [facility] RBC (Bld) [#/Vol] 3.92 10*6/uL Low 4.00 - 5.20 m/uL [facility] WBC other (Bld) [#/Vol] 4.3 [facility] Erythrocyte distribution width (RBC) [Ratio] 14.7 % Normal 12.1-15.2 [facility] Comment on above: Performed By: #### B MP, TROPI, CBC, TSH #### [facility] [address] [place] [id number] Life Enrichment Assistant: Angelito Muir MD Hematocrit (Bld) [Volume fraction] 37.0 % Normal 36.0-46.0 [facility] Comment on above: Performed By: #### B MP, TROPI, CBC, TSH #### [facility] [address] [place] [address] Life Enrichment Assistant: Angelito Muir MD Hemoglobin (Bld) [Mass/Vol] 12.2 g/dL Normal 12.0-16.0 [facility] Comment on above: Performed By: #### B MP, TROPI, CBC, TSH #### [facility] [address] [place] [phone] Life Enrichment Assistant: Angelito Muir MD MCH (RBC) [Entitic mass] 31.1 pg Normal 26.0-34.0 [facility] Comment on above: Performed By: #### B MP, TROPI, CBC, TSH #### [facility] [address] [place] [phone] Life Enrichment Assistant: Angelito Muir MD MCHC (RBC) [Mass/Vol] 33.0 g/dL Normal 31.0-37.0 [facility] Comment on above: Performed By: #### B MP, TROPI, CBC, TSH #### [facility] [address] [place] [phone] Life Enrichment Assistant: Angelito Muir MD MCV (RBC) [Entitic vol] 94.4 fL Normal 80.0-100.0 [facility] Comment on above: Performed By: #### B MP, TROPI, CBC, TSH #### [facility] [address] [place] [address] Life Enrichment Assistant: Angelito Muir MD Platelet mean volume (Bld) [Entitic vol] 10.3 fL Normal 6.0-12.0 [facility] Comment on above: Performed By: #### B MP, TROPI, CBC, TSH #### [facility] [address] [place] [address] Life Enrichment Assistant: Angelito Muir MD Platelets (Bld) [#/Vol] 179 10*3/uL Normal 140-450 [facility] Comment on above: Performed By: #### B MP, TROPI, CBC, TSH #### [facility] [address] [place] [address] Life Enrichment Assistant: Angelito Muir MD RBC (Bld) [#/Vol] 3.92 10*6/uL Low 4.00-5.20 [facility] Comment on above: Performed By: #### B MP, TROPI, CBC, TSH #### [facility] [address] [place] [phone] Life Enrichment Assistant: Angelito Muir MD WBC (Bld) [#/Vol] 4.3 10*3/uL Normal 3.5-11.0 [facility] Comment on above: Performed By: #### B MP, TROPI, CBC, TSH #### [facility] [address] [place] [phone] Life Enrichment Assistant: Angelito Muir MD No Panel Informationon 11-13 [facility] TSHon 11-14-2023 TSH Qn 1.80 m[IU]/L [facility] Thyroid Stim. Horm.on 2023 Thyroid Stim. Horm. 1.80 uIU/mL Normal 0.30-5.00 [facility] Comment on above: Performed By: #### B MP, TROPI, CBC, TSH #### [facility] [address] [place] [address] Life Enrichment Assistant: Angelito Muir MD Troponinon 11-14-2023 Troponin I.cardiac High sensitivity method [Mass/Vol] 10 ng/L 0 - 14 ng/L [facility] Comment on above: High Sensitivity Tro ponin values cannot be compared with other Troponin methodologies. Troponin, High Sens 10 ng/L Normal 0-14 [facility] Comment on above: Result Comment: High Sensitivity Troponin values cannot be compared with other Troponin methodologies. Performed By: #### B MP, TROPI, CBC, TSH #### [facility] [address] [place] [address] Life Enrichment Assistant: Angelito Muir MD CBC with Auto Differentialon 10-23-2023 Absolute Bands 0.18 [facility] Bands 4 % 0 - 10 % [facility] Basophils (Bld) [#/Vol] [facility] Basophils/100 WBC (Bld) 0 - 2 % [facility] Eosinophils % 0 - 5 % [facility] Eosinophils (Bld) [#/Vol] [facility] Erythrocyte distribution width (RBC) [Ratio] 14.7 % 12.1 - 15.2 % [facility] Hematocrit (Bld) [Volume fraction] 39.4 % 36.0 - 46.0 % [facility] Hemoglobin (Bld) [Mass/Vol] 12.9 g/dL 12.0 - 16.0 g/dL [facility] Immature granulocytes (Bld) [#/Vol] [facility] Immature granulocytes/100 WBC (Bld) 0 % [facility] Interpretation and review of laboratory results Abnormal [facility] Lymphocytes/100 WBC (Bld) 5 % Low 15 - 40 % [facility] Lymphocytes/100 WBC (Bld) 0.23 % Low [facility] MCH (RBC) [Entitic mass] 30.6 pg 26.0 - 34.0 pg [facility] MCHC (RBC) [Mass/Vol] 32.7 g/dL 31.0 - 37.0 g/dL [facility] MCV (RBC) [Entitic vol] 93.4 fL 80.0 - 100.0 fL [facility] Monocytes/100 WBC (Bld) 6 % 4 - 8 % [facility] Monocytes/100 WBC (Bld) 0.27 % [facility] Morphology Igor (Bld) [Interp] Platelet morphology normal. [facility] Morphology Igor (Bld) [Interp] RBC morphology normal. [facility] Morphology Igor (Bld) [Interp] Manual Differential Performed [facility] Neutrophils/100 WBC (Bld) 85 % High 47 - 75 % [facility] Platelet mean volume (Bld) [Entitic vol] 9.4 fL 6.0 - 12.0 fL [facility] Platelets (Bld) [#/Vol] 152 10*3/uL [facility] RBC (Bld) [#/Vol] 4.22 10*6/uL 4.00 - 5.20 m/uL [facility] Segmented neutrophils/100 WBC (Bld) 3.82 % [facility] WBC other (Bld) [#/Vol] 4.5 [facility] CBC with Diffon 10-23-2023 Abs. Bands 0.18 k/uL Normal 0.0-1.0 [facility] Comment on above: Performed By: #### B MP, TROPI, CBC, TSH #### [facility] [address] [place] [address] Life Enrichment Assistant: Angelito Muir MD Abs. Basophil Normal 0.0-0.2 [facility] Comment on above: Performed By: #### B MP, TROPI, CBC, TSH #### [facility] [address] [place] [id number] Life Enrichment Assistant: Angelito Muir MD Abs. Eosinophil Normal 0.0-0.4 [facility] Comment on above: Performed By: #### B MP, TROPI, CBC, TSH #### [facility] [address] [place], [place] [id number] Life Enrichment Assistant: Angelito Muir MD Abs.Imm.Granulocyte Normal 0.00-0.30 [facility] Comment on above: Performed By: #### B MP, TROPI, CBC, TSH #### [facility] [address] [place], [place] [id number] Life Enrichment Assistant: Angelito Muir MD Abs.Neutrophil (Seg) 3.82 k/uL Normal 2.5-7.0 [facility] Comment on above: Performed By: #### B MP, TROPI, CBC, TSH #### [facility] [address] [place] [address] Life Enrichment Assistant: Angelito Muir MD Bands 4 % Normal 0-10 [facility] Comment on above: Performed By: #### B MP, TROPI, CBC, TSH #### [facility] [address] [place] [id number] Life Enrichment Assistant: Angelito Muir MD Basophil Normal 0-2 [facility] Comment on above: Performed By: #### B MP, TROPI, CBC, TSH #### [facility] [address] [place], [place] [id number] Life Enrichment Assistant: Angelito Muir MD Eosinophil Normal 0-5 [facility] Comment on above: Performed By: #### B MP, TROPI, CBC, TSH #### [facility] [address] [place], [place] [id number] Life Enrichment Assistant: Angelito Muir MD Immature Granulocyte Normal 0 [facility] Comment on above: Performed By: #### B MP, TROPI, CBC, TSH #### [facility] [address] [place], [place] [id number] Life Enrichment Assistant: Angelito Muir MD Lymphocytes (Bld) [#/Vol] 0.23 10*3/uL Low 1.0-4.8 [facility] Comment on above: Performed By: #### B MP, TROPI, CBC, TSH #### [facility] [address] [place], [place] [id number] Life Enrichment Assistant: Angelito Muir MD Lymphocytes/100 WBC (Bld) 5 % Low 15-40 [facility] Comment on above: Performed By: #### B MP, TROPI, CBC, TSH #### [facility] [address] [place], [place] [id number] ([phone] Life Enrichment Assistant: Angelito Muir MD Monocytes (Bld) [#/Vol] 0.27 10*3/uL Normal 0.0-1.0 [facility] Comment on above: Performed By: #### B MP, TROPI, CBC, TSH #### [facility] [address] [place], [place] [phone] Life Enrichment Assistant: Angelito Muir MD Monocytes/100 WBC (Bld) 6 % Normal 4-8 [facility] Comment on above: Performed By: #### B MP, TROPI, CBC, TSH #### [facility] [address] [place] [address] Life Enrichment Assistant: Angelito Muir MD Morphology Igor (Bld) [Interp] Platelet morphology normal. Normal [facility] Comment on above: Result Comment: RBC morphology normal. Manual Differential Performed Performed By: #### B MP, TROPI, CBC, TSH #### [facility] [address] [place], [place] [id number] Life Enrichment Assistant: Angelito Muir MD Neutrophil (Seg) 85 % High 47-75 [facility] Comment on above: Performed By: #### B MP, TROPI, CBC, TSH #### [facility] [address] [place], [place] [phone] Life Enrichment Assistant: Angelito Muir MD Erythrocyte distribution width (RBC) [Ratio] 14.7 % Normal 12.1-15.2 [facility] Comment on above: Performed By: #### B MP, TROPI, CBC, TSH #### [facility] [address] [place] [address] Life Enrichment Assistant: Angelito Muir MD Hematocrit (Bld) [Volume fraction] 39.4 % Normal 36.0-46.0 [facility] Comment on above: Performed By: #### B MP, TROPI, CBC, TSH #### [facility] [address] [place] [phone] Life Enrichment Assistant: Angelito Muir MD Hemoglobin (Bld) [Mass/Vol] 12.9 g/dL Normal 12.0-16.0 [facility] Comment on above: Performed By: #### B MP, TROPI, CBC, TSH #### [facility] [address] [place] [address] Life Enrichment Assistant: Angelito Muir MD MCH (RBC) [Entitic mass] 30.6 pg Normal 26.0-34.0 [facility] Comment on above: Performed By: #### B MP, TROPI, CBC, TSH #### [facility] [address] [place] [address] Life Enrichment Assistant: Angelito Muir MD MCHC (RBC) [Mass/Vol] 32.7 g/dL Normal 31.0-37.0 [facility] Comment on above: Performed By: #### B MP, TROPI, CBC, TSH #### [facility] [address] [place] [address] Life Enrichment Assistant: Angelito Muir MD MCV (RBC) [Entitic vol] 93.4 fL Normal 80.0-100.0 [facility] Comment on above: Performed By: #### B MP, TROPI, CBC, TSH #### [facility] [address] [place] [address] Life Enrichment Assistant: Angelito Muir MD Platelet mean volume (Bld) [Entitic vol] 9.4 fL Normal 6.0-12.0 [facility] Comment on above: Performed By: #### B MP, TROPI, CBC, TSH #### [facility] [address] [place] [address] Life Enrichment Assistant: Angelito Muir MD Platelets (Bld) [#/Vol] 152 10*3/uL Normal 140-450 [facility] Comment on above: Performed By: #### B MP, TROPI, CBC, TSH #### [facility] [address] [place] [address] Life Enrichment Assistant: Angelito Muir MD RBC (Bld) [#/Vol] 4.22 10*6/uL Normal 4.00-5.20 [facility] Comment on above: Performed By: #### B MP, TROPI, CBC, TSH #### [facility] [address] [place] [address] Life Enrichment Assistant: Angelito Muir MD WBC (Bld) [#/Vol] 4.5 10*3/uL Normal 3.5-11.0 [facility] Comment on above: Performed By: #### B MP, TROPI, CBC, TSH #### [facility] [address] [place] [address] Life Enrichment Assistant: Angelito Muir MD Comp Metabolic Profon 2023 Albumin [Mass/Vol] 3.9 g/dL Normal 3.5-5.2 [facility] Comment on above: Performed By: #### B MP, TROPI, CBC, TSH #### [facility] [address] [place] [address] Life Enrichment Assistant: Angelito Muir MD Alkaline Phos 49 U/L Normal 35-104 [facility] Comment on above: Performed By: #### B MP, TROPI, CBC, TSH #### [facility] [address] [place] [address] Life Enrichment Assistant: Angelito Muir MD ALT [Catalytic activity/Vol] 12 U/L Normal 5-33 [facility] Comment on above: Performed By: #### B MP, TROPI, CBC, TSH #### [facility] [address] [place], [place] [phone] Life Enrichment Assistant: Angelito Muir MD Anion gap [Moles/Vol] 15 mmol/L Normal 9-17 [facility] Comment on above: Performed By: #### B MP, TROPI, CBC, TSH #### [facility] [address] [place], [place] [id number] Life Enrichment Assistant: Angelito Muir MD AST [Catalytic activity/Vol] 15 U/L Normal <32 [facility] Comment on above: Performed By: #### B MP, TROPI, CBC, TSH #### [facility] [address] [place], [place] [phone] Life Enrichment Assistant: Angelito Muir MD Bilirubin [Mass/Vol] 0.4 mg/dL Normal 0.3-1.2 [facility] Comment on above: Performed By: #### B MP, TROPI, CBC, TSH #### [facility] [address] [place], [place] [id number] Life Enrichment Assistant: Angelito Muir MD BUN/CRE Ratio 29 High 9-20 [facility] Comment on above: Performed By: #### B MP, TROPI, CBC, TSH #### [facility] [address] [place], [place] [id number] Life Enrichment Assistant: Angelito Muir MD Calcium [Mass/Vol] 8.9 mg/dL Normal 8.6-10.4 [facility] Comment on above: Performed By: #### B MP, TROPI, CBC, TSH #### [facility] [address] [place], [place] [id number] Life Enrichment Assistant: Angelito Muir MD Chloride [Moles/Vol] 107 mmol/L Normal 98-107 [facility] Comment on above: Performed By: #### B MP, TROPI, CBC, TSH #### [facility] [address] [place], [place] [phone] Life Enrichment Assistant: Angelito Muir MD CO2 [Moles/Vol] 17 mmol/L Low 20-31 [facility] Comment on above: Performed By: #### B MP, TROPI, CBC, TSH #### [facility] [address] [place], [place] [phone] Life Enrichment Assistant: Angelito Muir MD Creatinine [Mass/Vol] 1.1 mg/dL High 0.5-0.9 [facility] Comment on above: Performed By: #### B MP, TROPI, CBC, TSH #### [facility] [address] [place] [address] Life Enrichment Assistant: Angelito Muir MD GFR/1.73 sq M.predicted among non-blacks MDRD (S/P/Bld) [Vol rate/Area] 51 mL/min/{1.73_m2} Low >60 [facility] Comment on above: Result Comment: [...] #### B MP, TROPI, CBC, TSH #### [facility] [address] [place] [address] Life Enrichment Assistant: Angelito Muir MD Glucose [Mass/Vol] 136 mg/dL High 70-99 [facility] Comment on above: Performed By: #### B MP, TROPI, CBC, TSH #### [facility] [address] [place], [place] [phone] Life Enrichment Assistant: Angelito Muir MD Potassium [Moles/Vol] 3.6 mmol/L Low 3.7-5.3 [facility] Comment on above: Performed By: #### B MP, TROPI, CBC, TSH #### [facility] [address] [place], [place] [id number] Life Enrichment Assistant: Angelito Muir MD Protein [Mass/Vol] 6.6 g/dL Normal 6.4-8.3 [facility] Comment on above: Performed By: #### B MP, TROPI, CBC, TSH #### [facility] [address] [place] [address] Life Enrichment Assistant: Angelito Muir MD Sodium [Moles/Vol] 139 mmol/L Normal 135-144 [facility] Comment on above: Performed By: #### B MP, TROPI, CBC, TSH #### [facility] [address] [place], [place] [phone] Life Enrichment Assistant: Angelito Muir MD Urea nitrogen [Mass/Vol] 32 mg/dL High 8-23 [facility] Comment on above: Performed By: #### B MP, TROPI, CBC, TSH #### [facility] [address] [place], [place] [phone] Life Enrichment Assistant: Angelito Muir MD Comprehensive Metabolic Pane [facility] 10-23-2023 Albumin [Mass/Vol] 3.9 g/dL 3.5 - 5.2 g/dL [facility] ALP [Catalytic activity/Vol] 49 U/L 35 - 104 U/L [facility] ALT [Catalytic activity/Vol] 12 U/L 5 - 33 U/L [facility] Anion gap [Moles/Vol] 15 mmol/L 9 - 17 mmol/L [facility] AST [Catalytic activity/Vol] 15 U/L NINF - 32 U/L [facility] Bilirubin [Mass/Vol] 0.4 mg/dL 0.3 - 1 .2 mg/dL [facility] Calcium [Mass/Vol] 8.9 mg/dL 8.6 - 10. 4 mg/dL [facility] Chloride [Moles/Vol] 107 mmol/L 98 - 10 7 mmol/L [facility] CO2 [Moles/Vol] 17 mmol/L Low 20 - 31 mmol/L [facility] Creatinine [Mass/Vol] 1.1 mg/dL High 0.5 - 0.9 mg/dL [facility] GFR/1.73 sq M.predicted MDRD (S/P/Bld) [Vol rate/Area] 51 mL/min/{1.73_m2} Low - PINF [facility] Comment on above: These results are [...] mg/dL High 70 - 99 mg/dL [facility] Interpretation and review of laboratory results Abnormal [facility] Potassium [Moles/Vol] 3.6 mmol/L Low 3.7 - 5.3 mmol/L [facility] Protein [Mass/Vol] 6.6 g/dL 6.4 - 8.3 g/dL [facility] Sodium [Moles/Vol] 139 mmol/L 135 - 144 mmol/L [facility] Urea nitrogen [Mass/Vol] 32 mg/dL High 8 - 23 mg/dL [facility] Urea nitrogen/Creatinine [Mass ratio] 29 mg/mg High 9 - 20 [facility] Microscopic Urinalysison - [facility] Bacteria LM Ql (Urine sed) RARE Abnormal None [facility] Epithelial cells LM.HPF (Urine sed) [#/Area] 5 TO 10 /HPF [facility] Interpretation and review of laboratory results Abnormal [facility] RBC LM.HPF (Urine sed) [#/Area] 2 TO 5 [facility] WBC LM.HPF (Urine sed) [#/Area] NONE SEEN 0 /HPF [facility] Troponinon 10-23-2023 Interpretation and review of laboratory results Abnormal [facility] Troponin I.cardiac High sensitivity method [Mass/Vol] 19 ng/L High 0 - 14 ng/L [facility] Comment on above: High Sensitivity Tro ponin values cannot be compared with other Troponin methodologies. [facility] Troponin, High Sens 19 ng/L High 0-14 [facility] Comment on above: Result Comment: High Sensitivity Troponin values cannot be compared with other Troponin methodologies. Performed By: #### B MP, TROPI, CBC, TSH #### [facility] [address] [place] [address] Life Enrichment Assistant: Angelito Muir MD Interpretation and review of laboratory results Abnormal [facility] Troponin I.cardiac High sensitivity method [Mass/Vol] 15 ng/L High 0 - 14 ng/L [facility] Comment on above: High Sensitivity Tro ponin values cannot be compared with other Troponin methodologies. [facility] Troponin, High Sens 15 ng/L High 0-14 [facility] Comment on above: Result Comment: High Sensitivity Troponin values cannot be compared with other Troponin methodologies. Performed By: #### B MP, TROPI, CBC, TSH #### [facility] [address] [place] [address] Life Enrichment Assistant: Angelito Muir MD UA w/Reflex Cultureon 2023 Bilirubin, SemiQt,Ur Negative Normal NEG [facility] Comment on above: Performed By: #### B MP, TROPI, CBC, TSH #### [facility] [address] [place] [address] Life Enrichment Assistant: Angelito Muir MD Blood, Urine 2+ Abnormal NEG [facility] Comment on above: Performed By: #### B MP, TROPI, CBC, TSH #### [facility] [address] [place] [address] Life Enrichment Assistant: Angelito Muir MD Clarity (U) Clear Normal CLEAR [facility] Comment on above: Performed By: #### B MP, TROPI, CBC, TSH #### [facility] [address] [place] [address] Life Enrichment Assistant: Angelito Muir MD Color (U) Yellow Normal YEL [facility] Comment on above: Performed By: #### B MP, TROPI, CBC, TSH #### [facility] [address] [place] [address] Life Enrichment Assistant: Angelito Muir MD Comment Normal [facility] Comment on above: Performed By: #### B MP, TROPI, CBC, TSH #### [facility] [address] [place] [address] Life Enrichment Assistant: Angelito Muir MD Glucose Ql (U) Negative Normal NEG [facility] Comment on above: Performed By: #### B MP, TROPI, CBC, TSH #### [facility] [address] [place] [address] Life Enrichment Assistant: Angelito Muir MD Ketones Ql (U) TRACE Abnormal NEG [facility] Comment on above: Performed By: #### B MP, TROPI, CBC, TSH #### [facility] [address] [place] [address] Life Enrichment Assistant: Angelito Muir MD Leukocyte esterase Test strip Ql (U) Negative Normal NEG [facility] Comment on above: Performed By: #### B MP, TROPI, CBC, TSH #### [facility] [address] [place] [address] Life Enrichment Assistant: Angelito Muir MD Nitrite,Ur Negative Normal NEG [facility] Comment on above: Performed By: #### B MP, TROPI, CBC, TSH #### [facility] [address] [place] [address] Life Enrichment Assistant: Angelito Muir MD PH,Ur 5.0 Normal 5.0-8.0 [facility] Comment on above: Performed By: #### B MP, TROPI, CBC, TSH #### [facility] [address] [place] [address] Life Enrichment Assistant: Angelito Muir MD Protein Ql (U) 1+ mg/dL Abnormal NEG [facility] Comment on above: Performed By: #### B MP, TROPI, CBC, TSH #### [facility] [address] [place] [address] Life Enrichment Assistant: Angelito Muir MD Spec. [place],Ur 1.020 Normal 1.005-1.03 0 [facility] Comment on above: Performed By: #### B MP, TROPI, CBC, TSH #### [facility] [address] [place] [address] Life Enrichment Assistant: Angelito Muir MD Urobilinogen,Ur Normal Normal 0.0-1.0 [facility] Comment on above: Performed By: #### B MP, TROPI, CBC, TSH #### [facility] [address] [place] [address] Life Enrichment Assistant: Angelito Muir MD Urinalysis with Reflex to Cu ltureon 10-23-2023 Bilirubin Ql (U) Negative NEGATIVE [facility] Clarity (U) Clear Clear [facility] Color (U) Yellow Yellow [facility] Comment [facility] Glucose Test strip (U) [Mass/Vol] Negative NEGATIVE mg/dL [facility] Hemoglobin Auto test strip Ql (U) 2+ Abnormal NEGATIVE [facility] Interpretation and review of laboratory results Abnormal [facility] Ketones (U) [Mass/Vol] TRACE Abnormal NEGATIVE mg/dL [facility] Leukocyte esterase Test strip Ql (U) Negative NEGATIVE [facility] Nitrite Ql (U) Negative NEGATIVE [facility] pH (U) 5.0 [pH] 5.0 - 8.0 [facility] Protein (U) [Mass/Vol] 1+ Abnormal NEGATIVE mg/dL [facility] Specific gravity (U) [Rel density] 1.020 1.005 - 1.030 [facility] Urobilinogen Qn (U) Normal 0.0 - 1. 0 EU/dL [facility] Urinalysis,Microon 4 ----- Normal [facility] Comment on above: Performed By: #### B MP, TROPI, CBC, TSH #### [facility] [address] [place] [address] Life Enrichment Assistant: Angelito Muir MD Bacteria RARE Abnormal NONE [facility] Comment on above: Performed By: #### B MP, TROPI, CBC, TSH #### [facility] [address] [place] [phone] Life Enrichment Assistant: Angelito Muir MD Epithelial cells LM Ql (Urine sed) 5 TO 10 Normal [facility] Comment on above: Performed By: #### B MP, TROPI, CBC, TSH #### [facility] [address] [place], [place] [id number] Life Enrichment Assistant: Angelito Muir MD Urine RBC's 2 TO 5 Normal 0-2 [facility] Comment on above: Performed By: #### B MP, TROPI, CBC, TSH #### [facility] [address] [place], [place] [id number] Life Enrichment Assistant: Angelito Muir MD Urine WBC's NONE SEEN Normal 0 [facility] Comment on above: Performed By: #### B MP, TROPI, CBC, TSH #### [facility] [address] [place] [phone] Life Enrichment Assistant: Angelito Muir MD BUN + Creatinineon 4 Creatinine [Mass/Vol] 1.2 mg/dL High 0.5-0.9 [facility] Comment on above: Performed By: #### B UNCRT #### [facility] [address] [place] [address] Life Enrichment Assistant: Angelito Muir MD GFR/1.73 sq M.predicted among non-blacks MDRD (S/P/Bld) [Vol rate/Area] 46 mL/min/{1.73_m2} Low >60 [facility] Comment on above: Result Comment: [...] secretion. Performed By: #### B UNCRT #### [facility] [address] [place] [address] Life Enrichment Assistant: Angelito Muir MD Urea nitrogen [Mass/Vol] 35 mg/dL High 02-20 [facility] Comment on above: Performed By: #### B UNCRT #### [facility] [address] [place] [address] Life Enrichment Assistant: Angelito Muir MD CT UROGRAMon 10-22-2023 CT [...] Valentin Jr., MD 10/22/23 Final result Normal [facility] Cult,Urineon 10-02-2023 Cult,Urine Specimen Description .CLEAN [...] Tobramycin <=1 SUSCEPTIBLE Trimethoprim/Sulfa <=20 SUSCEPTIBLE Susceptible [facility] Comment on above: Performed By: #### B MP, TROPI, CBC, TSH #### [facility] [address] [place] [address] Life Enrichment Assistant: Angelito Muir MD Urinalysis w/ Microon 2023 ----- Normal [facility] Comment on above: Performed By: #### B MP, TROPI, CBC, TSH #### [facility] [address] [place] [address] Life Enrichment Assistant: Angelito Muir MD Bacteria 2+ Abnormal NONE [facility] Comment on above: Performed By: #### B MP, TROPI, CBC, TSH #### [facility] [address] [place] [address] Life Enrichment Assistant: Angelito Muir MD Bilirubin, SemiQt,Ur Negative Normal NEG [facility] Comment on above: Performed By: #### B MP, TROPI, CBC, TSH #### [facility] [address] [place], [place] [address] Life Enrichment Assistant: Angelito Muir MD Blood, Urine 2+ Abnormal NEG [facility] Comment on above: Performed By: #### B MP, TROPI, CBC, TSH #### [facility] [address] [place], [place] [id number] Life Enrichment Assistant: Angelito Muir MD Clarity (U) Cloudy Abnormal CLEAR [facility] Comment on above: Performed By: #### B MP, TROPI, CBC, TSH #### [facility] [address] [place], [place] [id number] Life Enrichment Assistant: Angelito Muir MD Color (U) Yellow Normal YEL [facility] Comment on above: Performed By: #### B MP, TROPI, CBC, TSH #### [facility] [address] [place], [place] [id number] Life Enrichment Assistant: Angelito Muir MD Comment Normal [facility] Comment on above: Performed By: #### B MP, TROPI, CBC, TSH #### [facility] [address] [place], [place] [id number] Life Enrichment Assistant: Angelito Muir MD Epithelial cells LM Ql (Urine sed) 2 TO 5 Normal [facility] Comment on above: Performed By: #### B MP, TROPI, CBC, TSH #### [facility] [address] [place], [place] [id number] Life Enrichment Assistant: Angelito Muir MD Glucose Ql (U) Negative Normal NEG [facility] Comment on above: Performed By: #### B MP, TROPI, CBC, TSH #### [facility] [address] [place], [place] [id number] Life Enrichment Assistant: Angelito Muir MD Ketones Ql (U) Negative Normal NEG [facility] Comment on above: Performed By: #### B MP, TROPI, CBC, TSH #### [facility] [address] [place] [address] Life Enrichment Assistant: Angelito Muir MD Leukocyte esterase Test strip Ql (U) 3+ Abnormal NEG [facility] Comment on above: Performed By: #### B MP, TROPI, CBC, TSH #### [facility] [address] [place], [place] [id number] Life Enrichment Assistant: Angelito Muir MD Nitrite,Ur Negative Normal NEG [facility] Comment on above: Performed By: #### B MP, TROPI, CBC, TSH #### [facility] [address] [place] [address] Life Enrichment Assistant: Angelito Muir MD PH,Ur 6.5 Normal 5.0-8.0 [facility] Comment on above: Performed By: #### B MP, TROPI, CBC, TSH #### [facility] [address] [place] [address] Life Enrichment Assistant: Angelito Muir MD Protein Ql (U) TRACE Abnormal NEG [facility] Comment on above: Performed By: #### B MP, TROPI, CBC, TSH #### [facility] [address] [place] [address] Life Enrichment Assistant: Angelito Muir MD Spec. [place],Ur 1.010 Normal 1.005-1.03 0 [facility] Comment on above: Performed By: #### B MP, TROPI, CBC, TSH #### [facility] [address] [place] [address] Life Enrichment Assistant: Angelito Muir MD Urine RBC's 10 TO 20 Normal 0-2 [facility] Comment on above: Performed By: #### B MP, TROPI, CBC, TSH #### [facility] [address] [place], [place] [id number] Life Enrichment Assistant: Angelito Muir MD Urine WBC's 20 TO 50 Normal 0 [facility] Comment on above: Performed By: #### B MP, TROPI, CBC, TSH #### [facility] [address] [place] [address] Life Enrichment Assistant: Angelito Muir MD Urobilinogen,Ur Normal Normal 0.0-1.0 [facility] Comment on above: Performed By: #### B MP, TROPI, CBC, TSH #### [facility] [address] [place] [address] Life Enrichment Assistant: Angelito Muir MD IntraOperative Documentson 0 09-23-2023 Intra[employer] Documents [id number] Normal [facility] Result Letter Officeon 09-22 Result Letter Office (Inserted Image. Un able to display) September 23, 2023 [address]ARY [address]ANE [address]OS [address] [place] [address] : 1945 Below is a summary of [...] if you wish to make an appointment. [facility] [phone] [facility] Alanine aminotransferase [En zymatic activity/volume] in Serum or PlasmaOrdered By: Nuvia Sanchez on 09-19-2023 ALT [Catalytic activity/Vol] 12 U/L Normal 7-52 [facility] Comment on above: Performed By: #### C 3, CH50, C4 #### [facility] , #### ESR, CMP, CBC, ADDONUAPLUS #### [facility] [address] [place] [address] [facility] Albumin [Mass/volume] in Ser um or Plasma by Bromocresol green (BCG) dye binding methoOrdered By: Nuvia Sanchez on 09-19-2023 Albumin BCG dye [Mass/Vol] 3.9 g/dL 3.5-5.7 [facility] Alkaline phosphatase [Enzyma tic activity/volume] in Serum or PlasmaOrdered By: Nuvia Sanchez on 09-19-2023 ALP [Catalytic activity/Vol] 59 U/L Normal 34-104 [facility] Comment on above: Result Comment: PERF ORMED BY: [place] [address] PATHOLOGIST SUPERVISOR COOK ROOM MANUEL PABON M.D. Performed By: #### C 3, CH50, C4 #### [facility] , #### ESR, CMP, CBC, ADDONUAPLUS #### [address] Aspartate aminotransferase [ Enzymatic activity/volume] in Serum or PlasmaOrdered By: Nuvia Sanchez on 09-19-2023 AST [Catalytic activity/Vol] 13 U/L Normal 13-39 [facility] Comment on above: Performed By: #### C 3, CH50, C4 #### [facility] , #### ESR, CMP, CBC, ADDONUAPLUS #### [address] Automated basophil %Ordered By: Nuvia Sanchez on 09-19-2023 Basophils/100 WBC (Bld) 0.3 % Normal . [facility] Comment on above: Performed By: #### C 3, CH50, C4 #### [facility] , #### ESR, CMP, CBC, ADDONUAPLUS #### [facility] [address] [place] [address] Automated basophil countOrde red By: Nuvia Sanchez on 09-19-2023 Basophils (Bld) [#/Vol] 0.0 10*3/uL Normal 0.0-0.2 [facility] Comment on above: Performed By: #### C 3, CH50, C4 #### [facility] , #### ESR, CMP, CBC, ADDONUAPLUS #### [address] Automated blood monocyte cou ntOrdered By: Nuvia Sanchez on 09-19-2023 Monocytes (Bld) [#/Vol] 0.6 10*3/uL Normal 0.0-0.8 [facility] Comment on above: Performed By: #### C 3, CH50, C4 #### [facility] , #### ESR, CMP, CBC, ADDONUAPLUS #### [address] Automated eosinophil %Ordere d By: Nuvia Sanchez on 09-19-2023 Eosinophils/100 WBC (Bld) 0.8 % Normal . [facility] Comment on above: Performed By: #### C 3, CH50, C4 #### [facility] , #### ESR, CMP, CBC, ADDONUAPLUS #### [address] Automated eosinophil countOr dered By: Nuvia Sanchez on 09-19-2023 Eosinophils (Bld) [#/Vol] 0.1 10*3/uL Normal 0.0-0.45 [facility] Comment on above: Performed By: #### C 3, CH50, C4 #### [facility] , #### ESR, CMP, CBC, ADDONUAPLUS #### [address] Automated erythrocytes count in urine sediment (number/area)Ordered By: Nuvia Sanchez on 09-19-2023 RBC Auto (Urine sed) [#/Area] 0-1 [HPF] 0-4 [facility] Automated leukocytes count i n urine sediment (number/area)Ordered By: Nuvia Sanchez on 09-19-2023 WBC Auto (Urine sed) [#/Area] None seen [HPF] 0-4 [facility] Automated monocyte %Ordered By: Nuvia Sanchez on 09-19-2023 Monocytes/100 WBC (Bld) 6.5 % Normal . [facility] Comment on above: Performed By: #### C 3, CH50, C4 #### [facility] , #### ESR, CMP, CBC, ADDONUAPLUS #### [address] Automated neutrophil %Ordere d By: Nuvia Sanchez on 09-19-2023 Neutrophils/100 WBC (Bld) 74.2 % Normal . [facility] Comment on above: Performed By: #### C 3, CH50, C4 #### [facility] , #### ESR, CMP, CBC, ADDONUAPLUS #### [address] Automated urine color determ inationOrdered By: Nuvia Sanchez on 09-19-2023 Color (U) Yellow Normal Yellow [facility] Comment on above: Order Comment: Name Collection Type:: Clean-Voided Midstream Performed By: #### C 3, CH50, C4 #### [facility] , #### ESR, CMP, CBC, ADDONUAPLUS #### [address] Bilirubin Test strip Ql (U)O rdered By: Nuvia Sanchez on 09-19-2023 Bilirubin Ql (U) Negative Negative [facility] Bilirubin.total [Mass/volume ] in Serum or PlasmaOrdered By: Nuvia Sanchez on 09-19-2023 Bilirubin [Mass/Vol] 0.2 mg/dL Low 0.3-1.0 [facility] Comment on above: Performed By: #### C 3, CH50, C4 #### [facility] , #### ESR, CMP, CBC, ADDONUAPLUS #### [address] Calcium [Mass/volume] in Ser um or PlasmaOrdered By: Nuvia Sanchez on 09-19-2023 Calcium [Mass/Vol] 8.6 mg/dL Normal 8.6-10.3 [facility] Comment on above: Performed By: #### C 3, CH50, C4 #### [facility] , #### ESR, CMP, CBC, ADDONUAPLUS #### [facility] [address] Carbon dioxide, total [Moles /volume] in Serum or PlasmaOrdered By: Nuvia Sanchez on 09-19-2023 CO2 [Moles/Vol] 24.3 mmol/L Normal 21.0-31.0 [facility] Comment on above: Performed By: #### C 3, CH50, C4 #### [facility] , #### ESR, CMP, CBC, ADDONUAPLUS #### [place] [address] [place] Chloride [Moles/volume] in S liat or PlasmaOrdered By: Nuvia Sanchez on 09-19-2023 Chloride [Moles/Vol] 107 mmol/L Normal 98-107 [facility] Comment on above: Performed By: #### C 3, CH50, C4 #### [facility] , #### ESR, CMP, CBC, ADDONUAPLUS #### [place] [address] [place] Complement C3on 09-19-2023 Complement C3 112 mg/dL Normal 82-167 [facility] Comment on above: Result Comment: Perf ormed at: CB - [facility] [address] [id number] Life Enrichment Assistant: Usman Draper PhD, Phone: [phone] Performed By: #### C 3, CH50, C4 #### [facility] , #### ESR, CMP, CBC, ADDONUAPLUS #### [place] [address] [place] Complement C4on 09-19-2023 Complement C4 23 mg/dL Normal 12-38 [facility] Comment on above: Result Comment: PERF ORMED BY: [place] [address] PATHOLOGIST SUPERVISOR COOK ROOM MANUEL PABON M.D. Performed By: #### C 3, CH50, C4 #### [facility] , #### ESR, CMP, CBC, ADDONUAPLUS #### [address] Complement Total (CH50)on Complement Total (CH50) 54 Normal >41 [facility] Comment on above: Result Comment: [...] out of range values. Performed at: - [facility] [address] [id number] Life Enrichment Assistant: Usman Draper PhD, Phone: [phone] PERFORMED BY: [place] [address] PATHOLOGIST SUPERVISOR COOK ROOM MANUEL PABON M.D. Performed By: #### C 3, CH50, C4 #### [facility] , #### ESR, CMP, CBC, ADDONUAPLUS #### [address] Complete Blood Count Auto Di ffon 09-19-2023 Mean Corpuscular HGB Conc 33.2 g/dL Normal 32.0-35.0 [facility] Comment on above: Performed By: #### C 3, CH50, C4 #### [facility] , #### ESR, CMP, CBC, ADDONUAPLUS #### [address] NRBC% 0.1 /100{WBC} Normal 0-0.5 [facility] Comment on above: Performed By: #### C 3, CH50, C4 #### [facility] , #### ESR, CMP, CBC, ADDONUAPLUS #### [facility] [address] [place] [address] Comprehensive Metabolic Pane trevor 09-19-2023 Albumin [Mass/Vol] 3.9 g/dL Normal 3.5-5.7 [facility] Comment on above: Performed By: #### C 3, CH50, C4 #### [facility] , #### ESR, CMP, CBC, ADDONUAPLUS #### [address] GFR/1.73 sq M.predicted MDRD (S/P/Bld) [Vol rate/Area] 40.226 mL/min/{1.73_m2} Normal [facility] Comment on above: Performed By: #### C 3, CH50, C4 #### [facility] , #### ESR, CMP, CBC, ADDONUAPLUS #### [address] Creatinine [Mass/volume] in Serum or PlasmaOrdered By: Nuvia Sanchez on 09-19-2023 Creatinine [Mass/Vol] 1.35 mg/dL High 0.60-1.20 [facility] Comment on above: Performed By: #### C 3, CH50, C4 #### [facility] , #### ESR, CMP, CBC, ADDONUAPLUS #### [address] Dipstick and Microscopicon 0 09-19-2023 Appearance (U) Clear Normal Clear [facility] Comment on above: Order Comment: Name Collection Type:: Clean-Voided Midstream Performed By: #### C 3, CH50, C4 #### [facility] , #### ESR, CMP, CBC, ADDONUAPLUS #### [facility] [address] Bacteria,Urine None Seen Normal None Seen [facility] Comment on above: Order Comment: Name Collection Type:: Clean-Voided Midstream Performed By: #### C 3, CH50, C4 #### [facility] , #### ESR, CMP, CBC, ADDONUAPLUS #### [address] Bilirubin,Urine Negative Normal Negative [facility] Comment on above: Order Comment: Name Collection Type:: Clean-Voided Midstream Performed By: #### C 3, CH50, C4 #### [facility] , #### ESR, CMP, CBC, ADDONUAPLUS #### [address] Glucose Ql (U) Normal Normal Normal [facility] Comment on above: Order Comment: Name Collection Type:: Clean-Voided Midstream Performed By: #### C 3, CH50, C4 #### [facility] , #### ESR, CMP, CBC, ADDONUAPLUS #### [address] Hyaline Casts,Urine 0-8 Normal 0-8 [facility] Comment on above: Order Comment: Name Collection Type:: Clean-Voided Midstream Result Comment: PERF ORMED BY: [place] [address] PATHOLOGIST SUPERVISOR COOK ROOM MANUEL PABON M.D. Performed By: #### C 3, CH50, C4 #### [facility] , #### ESR, CMP, CBC, ADDONUAPLUS #### [address] Ketones Ql (U) Negative Normal Negative [facility] Comment on above: Order Comment: Name Collection Type:: Clean-Voided Midstream Performed By: #### C 3, CH50, C4 #### [facility] , #### ESR, CMP, CBC, ADDONUAPLUS #### [address] Leukocyte esterase Test strip Ql (U) Negative Normal Negative [facility] Comment on above: Order Comment: Name Collection Type:: Clean-Voided Midstream Performed By: #### C 3, CH50, C4 #### [facility] , #### ESR, CMP, CBC, ADDONUAPLUS #### [place] [address] [place] Nitrite,Urine Negative Normal Negative [facility] Comment on above: Order Comment: Name Collection Type:: Clean-Voided Midstream Performed By: #### C 3, CH50, C4 #### [facility] , #### ESR, CMP, CBC, ADDONUAPLUS #### [address] Occult Blood,Urine Negative Normal Negative [facility] Comment on above: Order Comment: Name Collection Type:: Clean-Voided Midstream Performed By: #### C 3, CH50, C4 #### [facility] , #### ESR, CMP, CBC, ADDONUAPLUS #### [place] [address] [place] Protein,Urine Negative Normal Negative [facility] Comment on above: Order Comment: Name Collection Type:: Clean-Voided Midstream Performed By: #### C 3, CH50, C4 #### [facility] , #### ESR, CMP, CBC, ADDONUAPLUS #### [place] [address] [place] RBC LM.HPF (Urine sed) [#/Area] 0 /[HPF] Normal 0-4 [facility] Comment on above: Order Comment: Name Collection Type:: Clean-Voided Midstream Performed By: #### C 3, CH50, C4 #### [facility] , #### ESR, CMP, CBC, ADDONUAPLUS #### [address] Specificy [place],Urine 1.011 Normal 1.001-1.03 0 [facility] Comment on above: Order Comment: Name Collection Type:: Clean-Voided Midstream Performed By: #### C 3, CH50, C4 #### [facility] , #### ESR, CMP, CBC, ADDONUAPLUS #### [address] Squamous Epithelial Cell,Urine None Seen Normal 0-2 [facility] Comment on above: Order Comment: Name Collection Type:: Clean-Voided Midstream Performed By: #### C 3, CH50, C4 #### [facility] , #### ESR, CMP, CBC, ADDONUAPLUS #### [address] Urobilinogen,Urine Normal Normal Normal [facility] Comment on above: Order Comment: Name Collection Type:: Clean-Voided Midstream Performed By: #### C 3, CH50, C4 #### [facility] , #### ESR, CMP, CBC, ADDONUAPLUS #### [address] WBC,Urine None Seen Normal 0-4 [facility] Comment on above: Order Comment: Name Collection Type:: Clean-Voided Midstream Performed By: #### C 3, CH50, C4 #### [facility] , #### ESR, CMP, CBC, ADDONUAPLUS #### [address] Erythrocyte Sedimentation Ra heather 09-19-2023 ESR (Bld) [Velocity] 15 mm/h Normal 0-29 [facility] Comment on above: Result Comment: PERF ORMED BY: [place] [address] PATHOLOGIST SUPERVISOR COOK ROOM MANUEL PABON M.D. Performed By: #### C 3, CH50, C4 #### [facility] , #### ESR, CMP, CBC, ADDONUAPLUS #### [address] Erythrocyte distribution wid th [Ratio] by Automated countOrdered By: Nuvia Sanchez on 09-19-2023 Erythrocyte distribution width (RBC) [Ratio] 15.2 % Normal 11.9-15.3 [facility] Comment on above: Performed By: #### C 3, CH50, C4 #### [facility] , #### ESR, CMP, CBC, ADDONUAPLUS #### [address] Erythrocyte sedimentation ra te by Photometric methodOrdered By: Nuvia Sanchez on 09-19-2023 ESR Photometric method (Bld) [Velocity] 15 mm/hr 0-29 [facility] Erythrocytes [#/volume] in B lood by Automated countOrdered By: Nuvia Sanchez on 09-19-2023 RBC (Bld) [#/Vol] 3.76 10*6/uL Normal 3.60-5.00 [facility] Comment on above: Performed By: #### C 3, CH50, C4 #### [facility] , #### ESR, CMP, CBC, ADDONUAPLUS #### [address] Glucose [Mass/volume] in Ser um or PlasmaOrdered By: Nuvia Sanchez on 09-19-2023 Glucose [Mass/Vol] 84 mg/dL Normal 70-100 [facility] Comment on above: ADA recommended refe rence rangeRandom Glucose Reference Range is dependent on time and content of last meal. Glucose of more than 200 mg/dL in a nonstressed, ambulatory subject supports the diagnosis of Diabetes Mellitus. Result Comment: [place] om Glucose Reference Range is dependent on time and content of last meal. Glucose of more than 200 mg/dL in a nonstressed, ambulatory subject supports the diagnosis of Diabetes Mellitus. ADA recommended reference range Performed By: #### C 3, CH50, C4 #### [facility] , #### ESR, CMP, CBC, ADDONUAPLUS #### [facility] [address] [place] [address] Hematocrit [Volume Fraction] of Blood by Automated countOrdered By: Nuvia Sanchez on 09-19-2023 Hematocrit (Bld) [Volume fraction] 34.5 % Normal 34.0-46.4 [facility] Comment on above: Performed By: #### C 3, CH50, C4 #### [facility] , #### ESR, CMP, CBC, ADDONUAPLUS #### [facility] [address] [place] [address] Hemoglobin [Mass/volume] in BloodOrdered By: Nuvia Sanchez on 09-19-2023 Hemoglobin (Bld) [Mass/Vol] 11.4 g/dL Low 11.8-15.4 [facility] Comment on above: Performed By: #### C 3, CH50, C4 #### [facility] , #### ESR, CMP, CBC, ADDONUAPLUS #### [facility] [address] [place] [address] Ketones Auto test strip (U) [Mass/Vol]Ordered By: Nuvia Sanchez on 09-19-2023 Ketones (U) [Mass/Vol] Negative Negative [facility] Laboratory - UrinalysisOrder ed By: Nuvia Sanchez on 09-19-2023 Hyaline casts LM Ql (Urine sed) 0-8 [LPF] 0-8 [facility] Leukocytes [#/volume] correc pepito for nucleated erythrocytes in Blood by Automated counOrdered By: Nuvia Sanchez on 09-19-2023 WBC corrected for nucl RBC Auto (Bld) [#/Vol] 8.9 10*3/uL 3.8-11.6 [facility] Leukocytes [#/volume] in Blo od by Automated countOrdered By: Nuvia Sanchez on 09-19-2023 WBC (Bld) [#/Vol] 8.9 10*3/uL Normal 3.8-11.6 [facility] Comment on above: Performed By: #### C 3, CH50, C4 #### [facility] , #### ESR, CMP, CBC, ADDONUAPLUS #### [address] Lymphocytes [#/volume] in Bl ood by Automated countOrdered By: Nuvia Sanchez on 09-19-2023 Lymphocytes (Bld) [#/Vol] 1.6 10*3/uL Normal 1.00-4.8 [facility] Comment on above: Performed By: #### C 3, CH50, C4 #### [facility] , #### ESR, CMP, CBC, ADDONUAPLUS #### [place] [address] [place] Lymphocytes/100 leukocytes i n Blood by Automated countOrdered By: Nuvia Sanchez on 09-19-2023 Lymphocytes/100 WBC (Bld) 18.2 % Normal . [facility] Comment on above: Performed By: #### C 3, CH50, C4 #### [facility] , #### ESR, CMP, CBC, ADDONUAPLUS #### [address] MCH [Entitic mass] by Automa pepito countOrdered By: Nuvia Sanchez on 09-19-2023 MCH (RBC) [Entitic mass] 30.4 pg Normal 24.7-34.3 [facility] Comment on above: Performed By: #### C 3, CH50, C4 #### [facility] , #### ESR, CMP, CBC, ADDONUAPLUS #### [address] MCHC Auto (RBC) [Mass/Vol]Or dered By: Nuvia Sanchez on 09-19-2023 MCHC (RBC) [Mass/Vol] 33.2 g/dL 32.0-35.0 [facility] MCV [Entitic volume] by Auto mated countOrdered By: Nuvia Sanchez on 09-19-2023 MCV (RBC) [Entitic vol] 91.6 fL Normal 80-100 [facility] Comment on above: Performed By: #### C 3, CH50, C4 #### [facility] , #### ESR, CMP, CBC, ADDONUAPLUS #### [facility] [address] [place] [address] Neutrophils [#/volume] in Bl ood by Automated countOrdered By: Nuvia Sanchez on 09-19-2023 Neutrophils (Bld) [#/Vol] 6.6 10*3/uL Normal 1.8-7.7 [facility] Comment on above: Performed By: #### C 3, CH50, C4 #### [facility] , #### ESR, CMP, CBC, ADDONUAPLUS #### [facility] [address] [place] [address] Nitrite Test strip Ql (U)Ord ered By: Nuvia Sanchez on 09-19-2023 Nitrite Ql (U) Negative Negative [facility] No Panel InformationOrdered By: Nuvia Sanchez on 09-19-2023 Estimated GFR (CKD-EPI) 40.226 mL/Min [facility] Creatinine Clearance (Chem N/A [facility] Nucleated erythrocytes [Pres ence] in Blood by Automated countOrdered By: Nuvia Sanchez on 09-19-2023 Nucleated RBC Auto Ql (Bld) 0.1 /100{WBC} 0-0.5 [facility] Platelet mean volume [Entiti c volume] in Blood by Automated countOrdered By: Nuvia Sanchez on 09-19-2023 Platelet mean volume (Bld) [Entitic vol] 8.6 fL Normal 6.3-10.7 [facility] Comment on above: Performed By: #### C 3, CH50, C4 #### [facility] , #### ESR, CMP, CBC, ADDONUAPLUS #### [facility] [address] [place] [address] [place] Platelets [#/volume] in Bloo d by Automated countOrdered By: Nuvia Sanchez on 09-19-2023 Platelets (Bld) [#/Vol] 214 10*3/uL Normal 150-450 [facility] Comment on above: Performed By: #### C 3, CH50, C4 #### [facility] , #### ESR, CMP, CBC, ADDONUAPLUS #### [facility] [address] Potassium [Moles/volume] in Serum or PlasmaOrdered By: Nuvia Sanchez on 09-19-2023 Potassium [Moles/Vol] 4.2 mmol/L Normal 3.5-5.1 [facility] Comment on above: Performed By: #### C 3, CH50, C4 #### [facility] , #### ESR, CMP, CBC, ADDONUAPLUS #### [facility] [address] [place] [address] Protein Auto test strip (U) [Mass/Vol]Ordered By: Nuvia Sanchez on 09-19-2023 Protein (U) [Mass/Vol] Negative Negative [facility] Protein [Mass/volume] in Ser um or PlasmaOrdered By: Nuvia Sanchez on 09-19-2023 Protein [Mass/Vol] 6.1 g/dL Low 6.4-8.9 [facility] Comment on above: Performed By: #### C 3, CH50, C4 #### [facility] , #### ESR, CMP, CBC, ADDONUAPLUS #### [facility] [address] Serum globulin measurement b y calculation (mass/volume)Ordered By: Nuvia Sanchez on 09-19-2023 Globulin (S) [Mass/Vol] 2.2 g/dL Normal [facility] Comment on above: Performed By: #### C 3, CH50, C4 #### [facility] , #### ESR, CMP, CBC, ADDONUAPLUS #### [facility] [address] [place] [address] Serum or plasma albumin/glob ulin mass ratioOrdered By: Nuvia Sanchez on 09-19-2023 Albumin/Globulin [Mass ratio] 1.8 {ratio} Normal [facility] Comment on above: Performed By: #### C 3, CH50, C4 #### [facility] , #### ESR, CMP, CBC, ADDONUAPLUS #### [facility] [address] [place] [address] Serum or plasma anion gap de terminationOrdered By: Nuvia Sanchez on 09-19-2023 Anion gap [Moles/Vol] 9.9 mmol/L Normal 6.0-15.0 [facility] Comment on above: Performed By: #### C 3, CH50, C4 #### [facility] , #### ESR, CMP, CBC, ADDONUAPLUS #### [facility] [address] [place] [address] Sodium [Moles/volume] in Ser um or PlasmaOrdered By: Nuvia Sanchez on 09-19-2023 Sodium [Moles/Vol] 137 mmol/L Normal 136-145 [facility] Comment on above: Performed By: #### C 3, CH50, C4 #### [facility] , #### ESR, CMP, CBC, ADDONUAPLUS #### [facility] [address] [place] [address] Specific gravity Auto test s trip (U) [Rel density]Ordered By: Nuvia Sanchez on 09-19-2023 Specific gravity (U) [Rel density] 1.011 1.001-1.03 0 [facility] Squamous epithelial cells de tection in urine sediment by light microscopyOrdered By: Nuvia Sanchez on 09-19-2023 Epithelial cells.squamous LM Ql (Urine sed) None seen [HPF] 0-2 [facility] Urea nitrogen [Mass/volume] in Serum or PlasmaOrdered By: Nuvia Sanchez on 09-19-2023 Urea nitrogen [Mass/Vol] 32 mg/dL High 7-25 [facility] Comment on above: Performed By: #### C 3, CH50, C4 #### [facility] , #### ESR, CMP, CBC, ADDONUAPLUS #### [facility] [address] [place] [address] Urine bacteria detection by automated methodOrdered By: Nuvia Sanchez on 09-19-2023 Bacteria Auto Ql (U) None seen None Seen [facility] Urine clarity by refractomet ry automatedOrdered By: Nuvia Sanchez on 09-19-2023 Clarity Refractometry automated (U) Clear Clear [facility] Urine glucose measurement by automated test strip (mass/volume)Ordered By: Nuvia Sanchez on 09-19-2023 Glucose Auto test strip (U) [Mass/Vol] Normal mg/dL Normal [facility] Urine hemoglobin detection b y automated test stripOrdered By: Nuvia Sanchez on 09-19-2023 Hemoglobin Auto test strip Ql (U) Negative Negative [facility] Urine leukocyte esterase det ection by automated test stripOrdered By: Nuvia Sanchez on 09-19-2023 Leukocyte esterase Auto test strip Ql (U) Negative Negative [facility] Urine pH measurement by auto mated test stripOrdered By: Nuvia Sanchez on 09-19-2023 pH (U) 6.0 [pH] Normal 5.0-9.0 [facility] Comment on above: Order Comment: Name Collection Type:: Clean-Voided Midstream Performed By: #### C 3, CH50, C4 #### [facility] , #### ESR, CMP, CBC, ADDONUAPLUS #### [facility] [address] [place] [address] Urobilinogen Auto test strip (U) [Mass/Vol]Ordered By: Nuvia Sanchez on 03-21-2024 Urobilinogen (U) [Mass/Vol] Normal mg/dL Normal [facility] [place]enton 09-17-2023 Consent [id number] Normal [facility] Discharge Instructionson Discharge Instructions [id number] Normal [facility] Main OR Intraoperative Recor don 09-17-2023 Main OR Intraoperative Record IntraOp Document Type FT Summary Primary Physician: Davion Olivares MD Finalized Date/Time: 09/17/23 08:19:33 Pt. Name: KAVITAJuan CMARY JANE/Sex: 1945 Female Med Rec #: [id number] Physician: Davion Olivares MD Financial #: [id number] Pt. Type: O Room/Bed: / Admit/Disch: 09/16/23 [...] Beaver RN, Yong Fang Role Performed Anesthesiologist Web Software Engineer - Primary Scrub - Primary Agent Telegrapher Time In 09/16/23 14:15:00 09/16/23 14:15:00 09/16/23 [...] Beaver RN Time Out Complete 09/16/23 14:17:00 Jon Garber, Georges Saez Micala E, Alexa GUAN, Marshall [...] and tissue Entry 1 Skin Integrity Intact, Grandy, Warm, and Skin Abnormality No Dry Outcomes Met? Yes Last Modified By: Janell Beaver RN 09/16/23 14:23:55 Post-Care Text: The patient is free from signs and symptoms of injury caused by extraneous objects Patient Positioning FT Pre-Care Text: Identifies physical alterations that require additional precautions for procedure-specific positioning, verifies presence of prosthe (more content not included)... Normal [facility] Postoperative Documentson Postoperative Documents [id number]#[id number] [facility] Consent for Treatmenton 08-29 Consent for Treatment [id number]#1.00TIFF [facility] Discharge Instructionson Discharge Instructions MARY JANE RIOS [...] tablet) fluticasone nasal (fluticasone 0.05 mg/inh Nasal [place]) levothyroxine (levothyroxine 50 mcg (0.05 mg) Tab) [...] office will call for follow up Where: [facility] [place], [address] [address] [phone] Business (1) Medications What How Much When Instructions Next Dose Changed famotidine 20 Milligram By Mouth Once a day (at bedtime) Changed famotidine (famotidine 40 mg Tab) 1 Tablets By Mouth Once a day (at bedtime) Pickup at [id number] Unchanged alprazolam 0.5 Milligram By Mouth At [...] fluticasone nasal (fluticasone 0.05 mg/ inh Nasal [place]) 50 Microgram Nasal Inhalation Every day Unchanged [...] Pharmacy Information (more content not included)... Normal [facility] Comment on above: Result Comment: Elec [...] Education and Follow-up: Counseled: Patient, Family. Normal [facility] Comment on above: Result Comment: Elec tronically Signed By: Marshall STEINER, Davion Zarate\.br\Date and Time Signed: 09/16/23 14:42 EDT Other Comment: Rachel saravia Attachment - attachment storage system not supported [id number] Can be viewed in source system Missing Attachment - attachment storage system not supported [id number] Can be viewed in source system Missing Attachment - attachment storage system not supported [id number] Can be viewed in source system Missing Attachment - attachment storage system not supported [id number] Can be viewed in source system Missing Attachment - attachment storage system not supported [id number] Can be viewed in source system Missing Attachment - attachment storage system not supported [id number] Can be viewed in source system Missing Attachment - attachment storage system not supported 1028739 Can be viewed in source system Missing Attachment - attachment storage system not supported [id number] Can be viewed in source system Missing Attachment - attachment storage system not supported 7113673 Can be viewed in source system Missing Attachment - attachment storage system not supported 3940286 Can be viewed in source system Missing Attachment - attachment storage system not supported 1732899 Can be viewed in source system Missing Attachment - attachment storage system not supported 9967029 Can be viewed in source system Gastroenterology [...] Historical Co (more content not included)... Normal [facility] Comment on above: Result Comment: Elec tronically Signed By: Marshall STEINER, Davion Zarate\.br\Date and Time Signed: 09/16/23 14:16 EDT Inpatient Patient Summaryon 09-16-2023 Inpatient Patient Summary [place] [id number] [facility] Clinical Discharge Instructions PERSON INFORMATION Name: MARY JANE RIOS PHYSICIANS Admitting Physician: Davion Olivares MD Attending Physician: Davion Olivares MD PCP: RONI DAHL MD Discharge Diagnosis: Colon polyps Comment: PATIENT EDUCATION INFORMATION Instructions: Medication Leaflets: Follow up: MEDICATION LIST Medications to Continue Taking That Have Changed [facility] #[id number], [address], [place] [id number], [phone] START: famotidine (famotidine 40 mg Tab) 1 [...] day. fluticasone nasal (fluticasone 0.05 mg/inh Nasal [place]) 50 Microgram Nasal Inhalation every day. levothyroxine [...] Milligram By Mouth every day. Comment: Home [facility] Main OR PACU I Recordon 08-29 Main OR PACU I Record PACU Phase I Docum ent Type FT Summary Primary Physician: Davion Olivares MD Finalized Date/Time: 09/16/23 16:43:13 Pt. Name: MARY JANE RIOS Ora Gagnon/Sex: 1945 Female Med Rec #: [id number] Physician: Davion Olivares MD Financial #: [id number] Pt. Type: O Room/Bed: / Admit/Disch: 09/16/23 [...] By: Miley Zhou RN 09/16/23 16:[address] [facility] Main OR Preoperative Recordo n 09-16-2023 Main OR Preoperative Record Holding Area Document Type FT Summary Primary Physician: Davion Olivares MD Finalized Date/Time: 09/16/23 13:10:36 Pt. Name: BLANCA MARY JANE Gagnon/Sex: 1945 Female Med Rec #: [id number] Physician: Davion Olivares MD Financial #: [id number] Pt. Type: O Room/Bed: / Admit/Disch: 09/16/23 [...] By: Eliza Lyn RN 09/16/23 13:[address] [facility] Monitor Recordon 09-16-2023 Monitor Record [id number]#[id number] Normal [facility] Monitor Record [id number]#1.00TIFF [facility] Outpatient Surgery Discharge Instructionon 09-16-2023 Outpatient Surgery Discharge Instruction [place] [id number] Patient Discharge Instructions PERSON INFORMATION Name: MARY JANE ROIS Date of : 1945 Current Date: 09/16/2023 [...] to serve you. Thank you for choosing [facility] HERE ARE THE MEDICATION CHANGES THAT OCCURRED DURING YOUR HOSPITAL STAY Medications to Continue Taking That Have Changed [facility] #[id number], [address], [place] [id number], [phone] START: famotidine (famotidine 40 mg Tab) 1 [...] day. fluticasone nasal (fluticasone 0.05 mg/inh Nasal [place]) 50 Microgram Nasal Inhalation every day. levothyroxine [...] day. PATIENT EDUCATION INFORMATION Instructions: Medication Leaflets: [facility] Patient Education - Texton 0 09-16-2023 Patient Education - Text [facility] Progress Note-Physicianon Progress Note-Physician Patient: MARY JANE [...] bedtime), # 90 tab(s), Refills(s) 6, [facility]: [id number], 162, cm, 09/16/23 10:47:00 EDT, Height/Length Dosing, [...] of stomach acid fluticasone 0.05 mg/inh Nasal [place]: 50 mcg, Nasal, Daily, Refill(s) 0, Allergy [...] day (at bedtime) fluticasone 0.05 mg/inh Nasal [place] 50 mcg, Nasal, Daily levothyroxine 50 mcg [...] All Problems Acid reflux / SNOMED CT 101559849 / Confirmed Anticoagulated / SNOMED CT 140291116 / Confirmed Asymptomatic microscopic hematuria / SNOMED CT 3066512984 / Confirmed Chronic back pain / SNOMED CT 437718162 / Confirmed Epigastric pain / SNOMED CT 448964699 / Confirmed H/O: arthritis / SNOMED CT 863407561 / Confirmed History of colon polyps / SNOMED CT 3859233567 / Confirmed Hypercholesterolemia / SNOMED CT 97755857 / Confirmed Hypothyroidism / SNOMED CT 16842296 / Confirmed Internal hemorrhoids / SNOMED CT 232044310 / Confirmed Intestinal metaplasia of stomach / SNOMED CT 372565714 / Confirmed Low vitamin B12 level / SNOMED CT 6764524822 / Confirmed Mixed incontinence / SNOMED CT 94845017 / Confirmed Mixed stress and urge urinary incontinence / SNOMED CT 9051868974 / Confirmed Nocturia / SNOMED CT 208846448 / Confirmed Obesity / ICD-9-CM 278.00 / Possible Shoulder strain / SNOMED CT 777447336 / Confirmed Sleep apnea / SNOMED CT 422025870 / Confirmed USES CPAP Stress incontinence / SNOMED CT 712191161 / Confirmed TMJ (temporomandibular joint disorder) / SNOMED CT 71809214 / Confirmed Urge incontinence / SNOMED CT 225265681 / Confirmed Weak urinary stream / SNOMED CT 707003125 / Confirmed Resolved: Constipation / SNOMED CT 26995556 Resolved: Diverticulosis / SNOMED CT 0121105066 Resolved: Frequency of urination / SNOMED CT 190381959 Resolved: Gastritis / SNOMED CT 9585983 Resolved: Hx of post-iza (more content not included)... Normal [facility] Comment on above: Result Comment: Elec [...] of stomach acid fluticasone 0.05 mg/inh Nasal [place]: 50 mcg, Nasal, Daily, Refill(s) 0, Allergy [...] day (at bedtime) fluticasone 0.05 mg/inh Nasal [place] 50 mcg, Nasal, Daily levothyroxine 50 mcg [...] All Problems Acid reflux / SNOMED CT 247069686 / Confirmed Anticoagulated / SNOMED CT 747958939 / Confirmed Asymptomatic microscopic hematuria / SNOMED CT 0627436129 / Confirmed Chronic back pain / SNOMED CT 141889785 / Confirmed Epigastric pain / SNOMED CT 692552126 / Confirmed H/O: arthritis / SNOMED CT 181943044 / Confirmed History of colon polyps / SNOMED CT 3878493228 / Confirmed Hypercholesterolemia / SNOMED CT 81050388 / Confirmed Hypothyroidism / SNOMED CT 72102051 / Confirmed Internal hemorrhoids / SNOMED CT 181829557 / Confirmed Intestinal metaplasia of stomach / SNOMED CT 299212329 / Confirmed Low vitamin B12 level / SNOMED CT 6534942977 / Confirmed Mixed incontinence / SNOMED CT 68000861 / Confirmed Mixed stress and urge urinary incontinence / SNOMED CT 7465372076 / Confirmed Nocturia / SNOMED CT 252417895 / Confirmed Obesity / ICD-9-CM 278.00 / Possible Shoulder strain / SNOMED CT 481011288 / Confirmed Sleep apnea / SNOMED CT 011722756 / Confirmed USES CPAP Stress incontinence / SNOMED CT 608324591 / Confirmed TMJ (temporomandibular joint disorder) / SNOMED CT 95487059 / Confirmed Urge incontinence / SNOMED CT 252648983 / Confirmed (more content not included)... Normal [facility] Comment on above: Result Comment: Elec tronically Signed By: Danny Anesthesiology (), Obie Anne.br\Date and Time Signed: 09/16/23 13:35 EDT CBC with Diffon 08-20-2023 Abs. Basophil 0.01 k/uL Normal 0.00-0.20 [facility] Comment on above: Performed By: #### T SHX, ZFAST, CP, MG, CDP #### [facility] [address] [place] [address] Life Enrichment Assistant: Angelito Muir MD #### LIPR #### [facility] [employer] [facility] [place], [place] [address] Life Enrichment Assistant: Ambrose Moura MD Abs.Imm.Granulocyte 0.04 k/uL Normal 0.00-0.30 [facility] Comment on above: Performed By: #### T SHX, ZFAST, CP, MG, CDP #### [facility] [address] [place] [address] Life Enrichment Assistant: Angelito Muir MD #### LIPR #### [facility] [address] [place], [place] [address] Life Enrichment Assistant: Ambrose Moura MD Abs.Neutrophil (Seg) 1.95 k/uL Low 2.5-7.0 [facility] Comment on above: Performed By: #### T SHX, ZFAST, CP, MG, CDP #### [facility] [address] [place] [address] Life Enrichment Assistant: Angelito Muir MD #### LIPR #### [place] [address] [place], [place] [address] Life Enrichment Assistant: Ambrose Moura MD Basophils/100 WBC (Bld) 0 % Normal 0-2 [facility] Comment on above: Performed By: #### T SHX, ZFAST, CP, MG, CDP #### [facility] [address] [place], [place] 5473[address] Life Enrichment Assistant: Angelito Muir MD #### LIPR #### [address] [id number] Life Enrichment Assistant: Ambrose Moura MD Eosinophils (Bld) [#/Vol] 0.09 10*3/uL Normal 0.00-0.40 [facility] Comment on above: Performed By: #### T SHX, ZFAST, CP, MG, CDP #### [facility] [address] [place] [phone] Life Enrichment Assistant: Angelito Muir MD #### LIPR #### [address] [id number] Life Enrichment Assistant: Ambrose Moura MD Eosinophils/100 WBC (Bld) 3 % Normal 0-5 [facility] Comment on above: Performed By: #### T SHX, ZFAST, CP, MG, CDP #### [facility] [address] [place], [place] 9584[address] Life Enrichment Assistant: Angelito Muir MD #### LIPR #### [address] [id number] Life Enrichment Assistant: Ambrose Moura MD Erythrocyte distribution width (RBC) [Ratio] 13.8 % Normal 12.1-15.2 [facility] Comment on above: Performed By: #### T SHX, ZFAST, CP, MG, CDP #### [facility] [address] [place] [address] Life Enrichment Assistant: Angelito Muir MD #### LIPR #### [address] [address] Life Enrichment Assistant: Ambrose Moura MD Hematocrit (Bld) [Volume fraction] 34.7 % Low 36.0-46.0 [facility] Comment on above: Performed By: #### T SHX, ZFAST, CP, MG, CDP #### [facility] [address] [place] [phone] ( Life Enrichment Assistant: Angelito Muir MD #### LIPR #### [address] [phone] Life Enrichment Assistant: Ambrose Moura MD Hemoglobin (Bld) [Mass/Vol] 11.4 g/dL Low 12.0-16.0 [facility] Comment on above: Performed By: #### T SHX, ZFAST, CP, MG, CDP #### [facility] [address] [place] [phone] ( Life Enrichment Assistant: Angelito Muir MD #### LIPR #### [place] [address] Life Enrichment Assistant: Ambrose Moura MD Immature granulocytes/100 WBC (Bld) 1 % Normal 0-5 [facility] Comment on above: Performed By: #### T SHX, ZFAST, CP, MG, CDP #### [facility] [address] [place] [address] Life Enrichment Assistant: Angelito Muir MD #### LIPR #### [place] [id number] Life Enrichment Assistant: Ambrose Moura MD Lymphocytes (Bld) [#/Vol] 1.02 10*3/uL Normal 1.00-4.80 [facility] Comment on above: Performed By: #### T SHX, ZFAST, CP, MG, CDP #### [facility] [address] [place] [address] Life Enrichment Assistant: Angelito Muir MD #### LIPR #### [address] [phone] Life Enrichment Assistant: Ambrose Moura MD Lymphocytes/100 WBC (Bld) 30 % Normal 15-40 [facility] Comment on above: Performed By: #### T SHX, ZFAST, CP, MG, CDP #### [facility] [address] [place] [address] Life Enrichment Assistant: Angelito Muir MD #### LIPR #### [place] [id number] Life Enrichment Assistant: Ambrose Moura MD MCH (RBC) [Entitic mass] 30.9 pg Normal 26.0-34.0 [facility] Comment on above: Performed By: #### T SHX, ZFAST, CP, MG, CDP #### [facility] [address] [place] [address] Life Enrichment Assistant: Angelito Muir MD #### LIPR #### [place] [id number] Life Enrichment Assistant: Ambrose Moura MD MCHC (RBC) [Mass/Vol] 32.9 g/dL Normal 31.0-37.0 [facility] Comment on above: Performed By: #### T SHX, ZFAST, CP, MG, CDP #### [facility] [address] [place] [address] Life Enrichment Assistant: Angelito Muir MD #### LIPR #### [address] [address] Life Enrichment Assistant: Ambrose Moura MD MCV (RBC) [Entitic vol] 94.0 fL Normal 80.0-100.0 [facility] Comment on above: Performed By: #### T SHX, ZFAST, CP, MG, CDP #### [facility] [address] [place] [address] Life Enrichment Assistant: Angelito Muir MD #### LIPR #### [address] [phone] Life Enrichment Assistant: Ambrose Moura MD Monocytes (Bld) [#/Vol] 0.34 10*3/uL Normal 0.00-1.00 [facility] Comment on above: Performed By: #### T SHX, ZFAST, CP, MG, CDP #### [facility] [address] [place] [address] Life Enrichment Assistant: Angelito Muir MD #### LIPR #### [address] [phone] Life Enrichment Assistant: Ambrose Moura MD Monocytes/100 WBC (Bld) 10 % High 4-8 [facility] Comment on above: Performed By: #### T SHX, ZFAST, CP, MG, CDP #### [facility] [address] [place] [address] Life Enrichment Assistant: Angelito Muir MD #### LIPR #### [address] [phone] Life Enrichment Assistant: Ambrose Moura MD Neutrophil (Seg) 56 % Normal 47-75 [facility] Comment on above: Performed By: #### T SHX, ZFAST, CP, MG, CDP #### [facility] [address] [place] [address] Life Enrichment Assistant: Angelito Muir MD #### LIPR #### [address] [phone] Life Enrichment Assistant: Ambrose Moura MD Platelet mean volume (Bld) [Entitic vol] 9.8 fL Normal 6.0-12.0 [facility] Comment on above: Performed By: #### T SHX, ZFAST, CP, MG, CDP #### [facility] [address] [place], [place] [phone] Life Enrichment Assistant: Angelito Muir MD #### LIPR #### [address] [address] Life Enrichment Assistant: Amrbose Moura MD Platelets (Bld) [#/Vol] 172 10*3/uL Normal 140-450 [facility] Comment on above: Performed By: #### T SHX, ZFAST, CP, MG, CDP #### [facility] [address] [place], [place] 8300[address] Life Enrichment Assistant: Angelito Muir MD #### LIPR #### [address] [address] Life Enrichment Assistant: Ambrose Moura MD RBC (Bld) [#/Vol] 3.69 10*6/uL Low 4.00-5.20 [facility] Comment on above: Performed By: #### T SHX, ZFAST, CP, MG, CDP #### [facility] [address] [place], [place] [phone] Life Enrichment Assistant: Angelito Muir MD #### LIPR #### [address] [phone] Life Enrichment Assistant: Ambrose Moura MD WBC (Bld) [#/Vol] 3.5 10*3/uL Normal 3.5-11.0 [facility] Comment on above: Performed By: #### T SHX, ZFAST, CP, MG, CDP #### [facility] [address] [place], [place] 108[address] Life Enrichment Assistant: Angelito Muir MD #### LIPR #### [address] [address] Life Enrichment Assistant: Ambrose Moura MD Comp Metabolic Profon 2023 Albumin [Mass/Vol] 4.0 g/dL Normal 3.5-5.2 [facility] Comment on above: Performed By: #### T SHX, ZFAST, CP, MG, CDP #### [facility] [address] [place], [place] [id number] Life Enrichment Assistant: Angelito Muir MD #### LIPR #### [address] [phone] Life Enrichment Assistant: Ambrose Moura MD Alkaline Phos 70 U/L Normal 35-104 [facility] Comment on above: Performed By: #### T SHX, ZFAST, CP, MG, CDP #### [facility] [address] [place], [place] 0956[address] Life Enrichment Assistant: Angelito Muir MD #### LIPR #### [address] [phone] Life Enrichment Assistant: Ambrose Moura MD ALT [Catalytic activity/Vol] 18 U/L Normal 5-33 [facility] Comment on above: Performed By: #### T SHX, ZFAST, CP, MG, CDP #### [facility] [address] [place], [place] 3250290 Life Enrichment Assistant: Angelito uMir MD #### LIPR #### [address] [phone] Life Enrichment Assistant: Ambrose Moura MD Anion gap [Moles/Vol] 11 mmol/L Normal 9-17 [facility] Comment on above: Performed By: #### T SHX, ZFAST, CP, MG, CDP #### [facility] [address] [place], [place] [phone] Life Enrichment Assistant: Angelito Muir MD #### LIPR #### [address] [phone] Life Enrichment Assistant: Ambrose Moura MD AST [Catalytic activity/Vol] 17 U/L Normal <32 [facility] Comment on above: Performed By: #### T SHX, ZFAST, CP, MG, CDP #### [facility] [address] [place], [place] 6578790 Life Enrichment Assistant: Angelito Muir MD #### LIPR #### [address] [phone] Life Enrichment Assistant: Ambrose Moura MD Bilirubin [Mass/Vol] 0.2 mg/dL Low 0.3-1.2 [facility] Comment on above: Performed By: #### T SHX, ZFAST, CP, MG, CDP #### [facility] [address] [place], [place] [phone] Life Enrichment Assistant: Angelito Muir MD #### LIPR #### [address] [phone] Life Enrichment Assistant: Ambrose Moura MD BUN/CRE Ratio 27 High 9-20 [facility] Comment on above: Performed By: #### T SHX, ZFAST, CP, MG, CDP #### [facility] [address] [place], [place] [phone] Life Enrichment Assistant: Angelito Muir MD #### LIPR #### [address] [phone] Life Enrichment Assistant: Ambrose Moura MD Calcium [Mass/Vol] 8.7 mg/dL Normal 8.6-10.4 [facility] Comment on above: Performed By: #### T SHX, ZFAST, CP, MG, CDP #### [facility] [address] [place], [place] 101[address] Life Enrichment Assistant: Angelito Muir MD #### LIPR #### [address] [phone] Life Enrichment Assistant: Ambrose Moura MD Chloride [Moles/Vol] 104 mmol/L Normal 98-107 [facility] Comment on above: Performed By: #### T SHX, ZFAST, CP, MG, CDP #### [facility] [address] [place], [place] 3928[address] Life Enrichment Assistant: Angelito Muir MD #### LIPR #### [address] [phone] Life Enrichment Assistant: Ambrose Moura MD CO2 [Moles/Vol] 24 mmol/L Normal 20-31 [facility] Comment on above: Performed By: #### T SHX, ZFAST, CP, MG, CDP #### [facility] [address] [place], [place] 9017590 Life Enrichment Assistant: Angelito Muir MD #### LIPR #### [address] [phone] Life Enrichment Assistant: Ambrose Moura MD Creatinine [Mass/Vol] 1.1 mg/dL High 0.5-0.9 [facility] Comment on above: Performed By: #### T SHX, ZFAST, CP, MG, CDP #### [facility] [address] [place], [place] 7414[address] Life Enrichment Assistant: Angelito Muir MD #### LIPR #### [address] [phone] Life Enrichment Assistant: Ambrose Moura MD GFR/1.73 sq M.predicted among non-blacks MDRD (S/P/Bld) [Vol rate/Area] 51 mL/min/{1.73_m2} Low >60 [facility] Comment on above: Result Comment: [...] T SHX, ZFAST, CP, MG, CDP #### [facility] [address] [place], [place] [phone] Life Enrichment Assistant: Angelito Muir MD #### LIPR #### [address] [phone] Life Enrichment Assistant: Ambrose Moura MD Glucose [Mass/Vol] 102 mg/dL High 70-99 [facility] Comment on above: Performed By: #### T SHX, ZFAST, CP, MG, CDP #### [facility] [address] [place], [place] 5146[address] Life Enrichment Assistant: Angelito Muir MD #### LIPR #### [address] [phone] Life Enrichment Assistant: Ambrose Moura MD Potassium [Moles/Vol] 4.1 mmol/L Normal 3.7-5.3 [facility] Comment on above: Performed By: #### T SHX, ZFAST, CP, MG, CDP #### [facility] [address] [place], [place] [phone] Life Enrichment Assistant: Angelito Muir MD #### LIPR #### [address] [phone] Life Enrichment Assistant: Ambrose Moura MD Protein [Mass/Vol] 6.3 g/dL Low 6.4-8.3 [facility] Comment on above: Performed By: #### T SHX, ZFAST, CP, MG, CDP #### [facility] [address] [place], [place] 2628[address] Life Enrichment Assistant: Angelito Muir MD #### LIPR #### [address] [phone] Life Enrichment Assistant: Ambrose Moura MD Sodium [Moles/Vol] 139 mmol/L Normal 135-144 [facility] Comment on above: Performed By: #### T SHX, ZFAST, CP, MG, CDP #### [facility] [address] [place] [address] Life Enrichment Assistant: Angelito Muir MD #### LIPR #### [place] [address] [place], [place] [id number] Life Enrichment Assistant: Ambrose Moura MD Urea nitrogen [Mass/Vol] 30 mg/dL High 8-23 [facility] Comment on above: Performed By: #### T SHX, ZFAST, CP, MG, CDP #### [facility] [address] [place] [address] Life Enrichment Assistant: Angelito Muir MD #### LIPR #### [address] [phone] Life Enrichment Assistant: Ambrose Moura MD Lipid Profileon 08-20-2023 Cholesterol [Mass/Vol] 112 mg/dL Normal 0-199 [facility] Comment on above: Result Comment: Cholesterol Guidelines: <200 Desirable 200-240 Borderline >240 Undesirable Performed By: #### B MP, TROPI, CBC, TSH #### [facility] [address] [place] [address] Life Enrichment Assistant: Angelito Muir MD Cholesterol in HDL [Mass/Vol] 39 mg/dL Low >40 [facility] Comment on above: Result Comment: HDL Guidelines: <40 Undesirable 40-59 Borderline >59 Desirable Performed By: #### B MP, TROPI, CBC, TSH #### [facility] [address] [place] [address] Life Enrichment Assistant: Angelito Muir MD Cholesterol in LDL [Mass/Vol] 58 mg/dL Normal 0-100 [facility] Comment on above: Result Comment: LDL Guidelines: <100 Desirable 100-129 Near to/above Desirable 130-159 Borderline >159 Undesirable Direct (measured) LDL and calculated LDL are not interchangeable tests. Performed By: #### B MP, TROPI, CBC, TSH #### [facility] [address] [place], [place] 8429290 Life Enrichment Assistant: Angelito Muir MD Cholesterol in VLDL [Mass/Vol] 15 mg/dL Normal [facility] Comment on above: Performed By: #### B MP, TROPI, CBC, TSH #### [facility] [address] [place], [place] [phone] Life Enrichment Assistant: Angelito Muir MD Cholesterol.total/Cho lesterol in HDL [Mass ratio] 3.0 {ratio} Normal [facility] Comment on above: Performed By: #### B MP, TROPI, CBC, TSH #### [facility] [address] [place], [place] [id number] Life Enrichment Assistant: Angelito Muir MD Triglyceride [Mass/Vol] 77 mg/dL Normal <150 [facility] [facility] Comment on above: Result Comment: Triglyceride Guidelines: <150 Desirable 150-199 Borderline 200-499 High >499 Very high Based on AHA Guidelines for fasting triglyceride, March 2012. Performed By: #### B MP, TROPI, CBC, TSH #### [facility] [address] [place], [place] [id number] Life Enrichment Assistant: Angelito Muir MD Magnesiumon 08-20-2023 Magnesium [Mass/Vol] 2.1 mg/dL Normal 1.6-2.6 [facility] Comment on above: Performed By: #### T SHX, ZFAST, CP, MG, CDP #### [facility] [address] [place], [place] [id number] Life Enrichment Assistant: Angelito Muir MD #### LIPR #### [address] [address] Life Enrichment Assistant: Ambrose Moura MD Patient fasting?on 4 Patient fasting? YES Normal [facility] Comment on above: Performed By: #### T SHX, ZFAST, CP, MG, CDP #### [facility] [address] [place] [address] Life Enrichment Assistant: Angelito Muir MD #### LIPR #### [id number] [place] [address] Life Enrichment Assistant: Ambrose Moura MD TSH w/reflex to FT4on 2023 Thyroid Stim. Horm. 1.88 uIU/mL Normal 0.30-5.00 [facility] Comment on above: Performed By: #### T SHX, ZFAST, CP, MG, CDP #### [facility] [address] [place] [address] Life Enrichment Assistant: Angelito Muir MD #### LIPR #### [facility] [address] [place] [address] Life Enrichment Assistant: Ambrose Moura MD XR CHEST (2 VW)on 08-20-2023 XR CHEST (2 VW) EXAM: XR CHEST (2 VW ) HISTORY: Essential hypertension COMPARISON: 02/27/2023. IMPRESSION: FINDINGS/IMPRESSION: 1. Normal sized heart. 2. Clear lungs. Interpreted by: Ishmael Valentin Jr., MD Signed by: Ishmael Valentin Jr., MD 08/20/23 Final result Normal [facility] COVID-19, Rapidon 07-01-2023 Interpretation and review of laboratory results Abnormal [facility] SARS-CoV-2 (COVID-19) RdRp gene JUAQUIN+probe Ql (Resp) Detected Abnormal Not Detected [facility] Comment on above: Rapid NAAT: The [...] this assay. Fact sheet for Healthcare Providers: https://www.fda.gov/media/558116/download Fact sheet for Patients: https://www.fda.gov/media/139346/download Methodology: Isothermal Nucleic Acid Amplification Results reported to the appropriate Health Department Specimen Description .NASOPHARYNGEAL SWAB [facility] Flu A/B Ag Detectionon 07-01 Flu A Ag Detection Negative Normal [facility] Comment on above: Result Comment: for Influenza A Antigen Performed By: #### B MP, TROPI, CBC, TSH #### [facility] [address] [place] [address] Life Enrichment Assistant: Angelito Muir MD Flu B Ag Detection Negative Normal [facility] Comment on above: Result Comment: for Influenza B Antigen. Performed By: #### B MP, TROPI, CBC, TSH #### [facility] [address] [place] [address] Life Enrichment Assistant: Angelito Muir MD Rapid influenza A/B antigens on 07-01-2023 FLUAV Ag Ql (Unsp spec) Negative NEGATIVE [facility] Comment on above: for Influenza A Anti gen FLUBV Ag Ql (Unsp spec) Negative NEGATIVE [facility] Comment on above: for Influenza B Anti gen. [facility] [id number] 07-01-2023 SARS-CoV-2 (COVID-19) RNA JUAQUIN+probe Ql (Unsp spec) Detected Abnormal NOTDET [facility] Comment on above: Result Comment: Rapid [...] this assay. Fact sheet for Healthcare Providers: https://www.fda.gov/media/647110/download Fact sheet for Patients: https://www.fda.gov/media/194227/download Methodology: Isothermal Nucleic Acid Amplification Results reported to the appropriate Health Department Performed By: #### B MP, TROPI, CBC, TSH #### [facility] [address] [place] [address] Life Enrichment Assistant: Angelito uMir MD Alanine aminotransferase [En zymatic activity/volume] in Serum or PlasmaOrdered By: Obie Hylton on 05-27-2023 ALT [Catalytic activity/Vol] 9 U/L Normal 7-52 [facility] Comment on above: Performed By: #### C 4, CH50, C3 #### [facility] , #### ESR, CBC, ADDONUAPLUS, CMP #### [facility] [address] [place] [address] [place] Albumin [Mass/volume] in Ser um or Plasma by Bromocresol green (BCG) dye binding methoOrdered By: Obie Hylton on 05-27-2023 Albumin BCG dye [Mass/Vol] 3.9 g/dL 3.5-5.7 [facility] Alkaline phosphatase [Enzyma tic activity/volume] in Serum or PlasmaOrdered By: Obie Hylton on 05-27-2023 ALP [Catalytic activity/Vol] 51 U/L Normal 34-104 [facility] Comment on above: Result Comment: PERF ORMED BY: [place] [address] PATHOLOGIST SUPERVISOR COOK ROOM MANUEL PABON M.D. Performed By: #### C 4, CH50, C3 #### [facility] , #### ESR, CBC, ADDONUAPLUS, CMP #### [facility] [address] [place] [address] [place] Aspartate aminotransferase [ Enzymatic activity/volume] in Serum or PlasmaOrdered By: Obie Hylton on 05-27-2023 AST [Catalytic activity/Vol] 14 U/L Normal 13-39 [facility] Comment on above: Performed By: #### C 4, CH50, C3 #### [facility] , #### ESR, CBC, ADDONUAPLUS, CMP #### [address] Automated basophil %Ordered By: Obie Hylton on 05-27-2023 Basophils/100 WBC (Bld) 0.4 % Normal . [facility] Comment on above: Performed By: #### C 3, CH50, C4 #### [facility] , #### ESR, CMP, CBC, ADDONUAPLUS #### [address] Automated basophil countOrde red By: Obie Hylton on 05-27-2023 Basophils (Bld) [#/Vol] 0.0 10*3/uL Normal 0.0-0.2 [facility] Comment on above: Performed By: #### C 3, CH50, C4 #### [facility] , #### ESR, CMP, CBC, ADDONUAPLUS #### [address] Automated blood monocyte cou ntOrdered By: Obie Hylton on 05-27-2023 Monocytes (Bld) [#/Vol] 0.3 10*3/uL Normal 0.0-0.8 [facility] Comment on above: Performed By: #### C 3, CH50, C4 #### [facility] , #### ESR, CMP, CBC, ADDONUAPLUS #### [address] Automated eosinophil %Ordere d By: Obie Hylton on 05-27-2023 Eosinophils/100 WBC (Bld) 2.0 % Normal . [facility] Comment on above: Performed By: #### C 3, CH50, C4 #### [facility] , #### ESR, CMP, CBC, ADDONUAPLUS #### [address] Automated eosinophil countOr dered By: Obie Hylotn on 05-27-2023 Eosinophils (Bld) [#/Vol] 0.1 10*3/uL Normal 0.0-0.45 [facility] Comment on above: Performed By: #### C 3, CH50, C4 #### [facility] , #### ESR, CMP, CBC, ADDONUAPLUS #### [address] Automated erythrocytes count in urine sediment (number/area)Ordered By: Obie Hylton on 05-27-2023 RBC Auto (Urine sed) [#/Area] 0-1 [HPF] 0-4 [facility] Automated leukocytes count i n urine sediment (number/area)Ordered By: Obie Hylton on 05-27-2023 WBC Auto (Urine sed) [#/Area] 0-1 [HPF] 0-4 [facility] Automated monocyte %Ordered By: Obie Hylton on 05-27-2023 Monocytes/100 WBC (Bld) 8.4 % Normal . [facility] Comment on above: Performed By: #### C 3, CH50, C4 #### [facility] , #### ESR, CMP, CBC, ADDONUAPLUS #### [address] Automated neutrophil %Ordere d By: Obie Hylton on 05-27-2023 Neutrophils/100 WBC (Bld) 61.9 % Normal . [facility] Comment on above: Performed By: #### C 3, CH50, C4 #### [facility] , #### ESR, CMP, CBC, ADDONUAPLUS #### [facility] [address] [place] [address] Automated urine color determ inationOrdered By: Obie Hylton on 05-27-2023 Color (U) Yellow Normal Yellow [facility] Comment on above: Order Comment: Name Collection Type:: Clean-Voided Midstream Performed By: #### C 3, CH50, C4 #### [facility] , #### ESR, CMP, CBC, ADDONUAPLUS #### [facility] [address] [place] [address] Bilirubin Test strip Ql (U)O rdered By: Obie Hylton on 05-27-2023 Bilirubin Ql (U) Negative Negative [facility] Bilirubin.total [Mass/volume ] in Serum or PlasmaOrdered By: Obie Hylton on 05-27-2023 Bilirubin [Mass/Vol] 0.5 mg/dL Normal 0.3-1.0 [facility] Comment on above: Performed By: #### C 4, CH50, C3 #### [facility] , #### ESR, CBC, ADDONUAPLUS, CMP #### [place] [address] [place] Calcium [Mass/volume] in Ser um or PlasmaOrdered By: Obie Ramirezrow on 05-27-2023 Calcium [Mass/Vol] 8.9 mg/dL Normal 8.6-10.3 [facility] Comment on above: Performed By: #### C 4, CH50, C3 #### [facility] , #### ESR, CBC, ADDONUAPLUS, CMP #### [place] [address] [place] Carbon dioxide, total [Moles /volume] in Serum or PlasmaOrdered By: Obie Ramirezrow on 05-27-2023 CO2 [Moles/Vol] 27.0 mmol/L Normal 21.0-31.0 [facility] Comment on above: Performed By: #### C 4, CH50, C3 #### [facility] , #### ESR, CBC, ADDONUAPLUS, CMP #### [place] [address] [place] Chloride [Moles/volume] in S liat or PlasmaOrdered By: Obie Ramirezrow on 05-27-2023 Chloride [Moles/Vol] 112 mmol/L High 98-107 [facility] Comment on above: Performed By: #### C 4, CH50, C3 #### [facility] , #### ESR, CBC, ADDONUAPLUS, CMP #### [address] Complement C3on 05-27-2023 Complement C3 110 mg/dL Normal 82-167 [facility] Comment on above: Result Comment: Perf ormed at: [facility] [address] [id number] Life Enrichment Assistant: Usman Draper PhD, Phone: [phone] Performed By: #### C 3, CH50, C4 #### [facility] , #### ESR, CMP, CBC, ADDONUAPLUS #### [address] Complement C4on 05-27-2023 Complement C4 25 mg/dL Normal 12-38 [facility] Comment on above: Result Comment: PERF ORMED BY: [place] [address] PATHOLOGIST SUPERVISOR COOK ROOM MANUEL PABON M.D. Performed By: #### C 3, CH50, C4 #### [facility] , #### ESR, CMP, CBC, ADDONUAPLUS #### [address] Complement Total (CH50)on Complement Total (CH50) 58 Normal >41 [facility] Comment on above: Result Comment: [...] determine out of range values. Performed at: [facility] [id number] Life Enrichment Assistant: Usman Draper PhD, Phone: [phone] PERFORMED BY: [place] [address] PATHOLOGIST SUPERVISOR COOK ROOM MANUEL PABON M.D. Performed By: #### C 3, CH50, C4 #### [facility] , #### ESR, CMP, CBC, ADDONUAPLUS #### [address] Complete Blood Count Auto Di ffon 05-27-2023 Mean Corpuscular HGB Conc 33.9 g/dL Normal 32.0-35.0 [facility] Comment on above: Performed By: #### C 3, CH50, C4 #### [facility] , #### ESR, CMP, CBC, ADDONUAPLUS #### [address] NRBC% 0.2 /100{WBC} Normal 0-0.5 [facility] Comment on above: Performed By: #### C 3, CH50, C4 #### [facility] , #### ESR, CMP, CBC, ADDONUAPLUS #### [address] Comprehensive Metabolic Pane [facility] 05-27-2023 Albumin [Mass/Vol] 3.9 g/dL Normal 3.5-5.7 [facility] Comment on above: Performed By: #### C 4, CH50, C3 #### [facility] , #### ESR, CBC, ADDONUAPLUS, CMP #### [address] GFR/1.73 sq M.predicted MDRD (S/P/Bld) [Vol rate/Area] 46.333 mL/min/{1.73_m2} Normal [facility] Comment on above: Performed By: #### C 4, CH50, C3 #### [facility] , #### ESR, CBC, ADDONUAPLUS, CMP #### [facility] [address] Creatinine [Mass/volume] in Serum or PlasmaOrdered By: Obie Hylton on 05-27-2023 Creatinine [Mass/Vol] 1.20 mg/dL Normal 0.60-1.20 [facility] Comment on above: Performed By: #### C 4, CH50, C3 #### [facility] , #### ESR, CBC, ADDONUAPLUS, CMP #### [facility] [address] [place] [address] [place] Dipstick and Microscopicon 1 07-27-2022 Appearance (U) Cloudy Critically abnormal Clear [facility] Comment on above: Order Comment: Name Collection Type:: Clean-Voided Midstream Performed By: #### C 3, CH50, C4 #### [facility] , #### ESR, CMP, CBC, ADDONUAPLUS #### [facility] [address] [place] [address] Bacteria,Urine None Seen Normal None Seen [facility] Comment on above: Order Comment: Name Collection Type:: Clean-Voided Midstream Performed By: #### C 3, CH50, C4 #### [facility] , #### ESR, CMP, CBC, ADDONUAPLUS #### [facility] [address] [place] [address] Bilirubin,Urine Negative Normal Negative [facility] Comment on above: Order Comment: Name Collection Type:: Clean-Voided Midstream Performed By: #### C 3, CH50, C4 #### [facility] , #### ESR, CMP, CBC, ADDONUAPLUS #### [facility] [address] [place] [address] [place] Glucose Ql (U) Normal Normal Normal [facility] Comment on above: Order Comment: Name Collection Type:: Clean-Voided Midstream Performed By: #### C 3, CH50, C4 #### [facility] , #### ESR, CMP, CBC, ADDONUAPLUS #### [address] Hyaline Casts,Urine 0-8 Normal 0-8 [facility] Comment on above: Order Comment: Name Collection Type:: Clean-Voided Midstream Result Comment: PERF ORMED BY: [place] [address] PATHOLOGIST SUPERVISOR COOK ROOM MANUEL PABON M.D. Performed By: #### C 3, CH50, C4 #### [facility] , #### ESR, CMP, CBC, ADDONUAPLUS #### [address] Ketones Ql (U) Negative Normal Negative [facility] Comment on above: Order Comment: Name Collection Type:: Clean-Voided Midstream Performed By: #### C 3, CH50, C4 #### [facility] , #### ESR, CMP, CBC, ADDONUAPLUS #### [address] Leukocyte esterase Test strip Ql (U) Negative Normal Negative [facility] Comment on above: Order Comment: Name Collection Type:: Clean-Voided Midstream Performed By: #### C 3, CH50, C4 #### [facility] , #### ESR, CMP, CBC, ADDONUAPLUS #### [place] [address] [place] Nitrite,Urine Negative Normal Negative [facility] Comment on above: Order Comment: Name Collection Type:: Clean-Voided Midstream Performed By: #### C 3, CH50, C4 #### [facility] , #### ESR, CMP, CBC, ADDONUAPLUS #### [address] Occult Blood,Urine Trace High Negative [facility] Comment on above: Order Comment: Name Collection Type:: Clean-Voided Midstream Performed By: #### C 3, CH50, C4 #### [facility] , #### ESR, CMP, CBC, ADDONUAPLUS #### [address] Protein,Urine Negative Normal Negative [facility] Comment on above: Order Comment: Name Collection Type:: Clean-Voided Midstream Performed By: #### C 3, CH50, C4 #### [facility] , #### ESR, CMP, CBC, ADDONUAPLUS #### [address] RBC LM.HPF (Urine sed) [#/Area] 0 /[HPF] Normal 0-4 [facility] Comment on above: Order Comment: Name Collection Type:: Clean-Voided Midstream Performed By: #### C 3, CH50, C4 #### [facility] , #### ESR, CMP, CBC, ADDONUAPLUS #### [address] Specificy [place],Urine 1.017 Normal 1.001-1.03 0 [facility] Comment on above: Order Comment: Name Collection Type:: Clean-Voided Midstream Performed By: #### C 3, CH50, C4 #### [facility] , #### ESR, CMP, CBC, ADDONUAPLUS #### [address] Squamous Epithelial Cell,Urine 1-2 Normal 0-2 [facility] Comment on above: Order Comment: Name Collection Type:: Clean-Voided Midstream Performed By: #### C 3, CH50, C4 #### [facility] , #### ESR, CMP, CBC, ADDONUAPLUS #### [address] Urobilinogen,Urine Normal Normal Normal [facility] Comment on above: Order Comment: Name Collection Type:: Clean-Voided Midstream Performed By: #### C 3, CH50, C4 #### [facility] , #### ESR, CMP, CBC, ADDONUAPLUS #### [address] WBC LM.HPF (Urine sed) [#/Area] 0 /[HPF] Normal 0-4 [facility] Comment on above: Order Comment: Name Collection Type:: Clean-Voided Midstream Performed By: #### C 3, CH50, C4 #### [facility] , #### ESR, CMP, CBC, ADDONUAPLUS #### [address] Erythrocyte Sedimentation Ra heather 05-27-2023 ESR (Bld) [Velocity] 17 mm/h Normal 0-29 [facility] Comment on above: Result Comment: PERF ORMED BY: [place] [address] PATHOLOGIST SUPERVISOR COOK ROOM MANUEL PABON M.D. Performed By: #### C 3, CH50, C4 #### [facility] , #### ESR, CMP, CBC, ADDONUAPLUS #### [address] Erythrocyte distribution wid th [Ratio] by Automated countOrdered By: Obie Hylton on 05-27-2023 Erythrocyte distribution width (RBC) [Ratio] 14.9 % Normal 11.9-15.3 [facility] Comment on above: Performed By: #### C 3, CH50, C4 #### [facility] , #### ESR, CMP, CBC, ADDONUAPLUS #### [address] Erythrocyte sedimentation ra te by Photometric methodOrdered By: Obie Hylton on 05-27-2023 ESR Photometric method (Bld) [Velocity] 17 mm/hr 0-29 [facility] Erythrocytes [#/volume] in B lood by Automated countOrdered By: Obie Hylton on 05-27-2023 RBC (Bld) [#/Vol] 3.68 10*6/uL Normal 3.60-5.00 [facility] Comment on above: Performed By: #### C 3, CH50, C4 #### [facility] , #### ESR, CMP, CBC, ADDONUAPLUS #### [facility] [address] [place] [address] Glucose [Mass/volume] in Ser um or PlasmaOrdered By: Obie Hylton on 05-27-2023 Glucose [Mass/Vol] 91 mg/dL Normal 70-100 [facility] Comment on above: ADA recommended refe rence rangeRandom Glucose Reference Range is dependent on time and content of last meal. Glucose of more than 200 mg/dL in a nonstressed, ambulatory subject supports the diagnosis of Diabetes Mellitus. Result Comment: [place] om Glucose Reference Range is dependent on time and content of last meal. Glucose of more than 200 mg/dL in a nonstressed, ambulatory subject supports the diagnosis of Diabetes Mellitus. ADA recommended reference range Performed By: #### C 4, CH50, C3 #### [facility] , #### ESR, CBC, ADDONUAPLUS, CMP #### [address] Hematocrit [Volume Fraction] of Blood by Automated countOrdered By: Obie Hylton on 05-27-2023 Hematocrit (Bld) [Volume fraction] 34.4 % Normal 34.0-46.4 [facility] Comment on above: Performed By: #### C 3, CH50, C4 #### [facility] , #### ESR, CMP, CBC, ADDONUAPLUS #### [facility] [address] [place] [address] [place] Hemoglobin [Mass/volume] in BloodOrdered By: Obie Hylton on 05-27-2023 Hemoglobin (Bld) [Mass/Vol] 11.7 g/dL Low 11.8-15.4 [facility] Comment on above: Performed By: #### C 3, CH50, C4 #### [facility] , #### ESR, CMP, CBC, ADDONUAPLUS #### [facility] [address] [place] [address] Ketones Auto test strip (U) [Mass/Vol]Ordered By: Obie Ramirezrow on 05-27-2023 Ketones (U) [Mass/Vol] Negative Negative [facility] - UrinalysisOrder ed By: Obie Ramirezrow on 05-27-2023 Hyaline casts LM Ql (Urine sed) 0-8 [LPF] 0-8 [facility] Leukocytes [#/volume] correc pepito for nucleated erythrocytes in Blood by Automated counOrdered By: Obie Ramirezrow on 05-27-2023 WBC corrected for nucl RBC Auto (Bld) [#/Vol] 3.9 10*3/uL 3.8-11.6 [facility] Leukocytes [#/volume] in Blo od by Automated countOrdered By: Obie Warner on 05-27-2023 WBC (Bld) [#/Vol] 3.9 10*3/uL Normal 3.8-11.6 [facility] Comment on above: Performed By: #### C 3, CH50, C4 #### [facility] , #### ESR, CMP, CBC, ADDONUAPLUS #### [facility] [address] [place] [address] Lymphocytes [#/volume] in Bl ood by Automated countOrdered By: Obie Warner on 05-27-2023 Lymphocytes (Bld) [#/Vol] 1.1 10*3/uL Normal 1.00-4.8 [facility] Comment on above: Performed By: #### C 3, CH50, C4 #### [facility] , #### ESR, CMP, CBC, ADDONUAPLUS #### [facility] [address] [place] [address] [place] Lymphocytes/100 leukocytes i n Blood by Automated countOrdered By: Obie Hylton on 05-27-2023 Lymphocytes/100 WBC (Bld) 27.3 % Normal . [facility] Comment on above: Performed By: #### C 3, CH50, C4 #### [facility] , #### ESR, CMP, CBC, ADDONUAPLUS #### [facility] [address] [place] [address] MCH [Entitic mass] by Automa pepito countOrdered By: Obie Ramirezrow on 05-27-2023 MCH (RBC) [Entitic mass] 31.7 pg Normal 24.7-34.3 [facility] Comment on above: Performed By: #### C 3, CH50, C4 #### [facility] , #### ESR, CMP, CBC, ADDONUAPLUS #### [address] MCHC Auto (RBC) [Mass/Vol]Or dered By: Obie Warner on 05-27-2023 MCHC (RBC) [Mass/Vol] 33.9 g/dL 32.0-35.0 [facility] MCV [Entitic volume] by Auto mated countOrdered By: Obie Warner on 05-27-2023 MCV (RBC) [Entitic vol] 93.4 fL Normal 80-100 [facility] Comment on above: Performed By: #### C 3, CH50, C4 #### [facility] , #### ESR, CMP, CBC, ADDONUAPLUS #### [address] Neutrophils [#/volume] in Bl ood by Automated countOrdered By: Obieradha Hylton on 05-27-2023 Neutrophils (Bld) [#/Vol] 2.4 10*3/uL Normal 1.8-7.7 [facility] Comment on above: Performed By: #### C 3, CH50, C4 #### [facility] , #### ESR, CMP, CBC, ADDONUAPLUS #### [address] Nitrite Test strip Ql (U)Ord ered By: Obie Hylton on 05-27-2023 Nitrite Ql (U) Negative Negative [facility] No Panel InformationOrdered By: Obie Hylton on 05-27-2023 Estimated GFR (CKD-EPI) 46.333 mL/Min [facility] Creatinine Clearance (Chem N/A [facility] Nucleated erythrocytes [Pres ence] in Blood by Automated countOrdered By: Obie Hylton on 05-27-2023 Nucleated RBC Auto Ql (Bld) 0.2 /100{WBC} 0-0.5 [facility] Platelet mean volume [Entiti c volume] in Blood by Automated countOrdered By: Obie Hylton on 05-27-2023 Platelet mean volume (Bld) [Entitic vol] 8.8 fL Normal 6.3-10.7 [facility] Comment on above: Performed By: #### C 3, CH50, C4 #### [facility] , #### ESR, CMP, CBC, ADDONUAPLUS #### [facility] [address] [place] [address] Platelets [#/volume] in Bloo d by Automated countOrdered By: Obie Hyltno on 05-27-2023 Platelets (Bld) [#/Vol] 193 10*3/uL Normal 150-450 [facility] Comment on above: Performed By: #### C 3, CH50, C4 #### [facility] , #### ESR, CMP, CBC, ADDONUAPLUS #### [facility] [address] [place] [address] Potassium [Moles/volume] in Serum or PlasmaOrdered By: Obie Ramirezrow on 05-27-2023 Potassium [Moles/Vol] 4.4 mmol/L Normal 3.5-5.1 [facility] Comment on above: Performed By: #### C 4, CH50, C3 #### [facility] , #### ESR, CBC, ADDONUAPLUS, CMP #### [address] Protein Auto test strip (U) [Mass/Vol]Ordered By: Obie Ramirezrow on 05-27-2023 Protein (U) [Mass/Vol] Negative Negative [facility] Protein [Mass/volume] in Ser um or PlasmaOrdered By: Obie Hylton on 05-27-2023 Protein [Mass/Vol] 6.0 g/dL Low 6.4-8.9 [facility] Comment on above: Performed By: #### C 4, CH50, C3 #### [facility] , #### ESR, CBC, ADDONUAPLUS, CMP #### [facility] [address] [place] [address] Serum globulin measurement b y calculation (mass/volume)Ordered By: Obie Hylton on 05-27-2023 Globulin (S) [Mass/Vol] 2.1 g/dL Normal [facility] Comment on above: Performed By: #### C 4, CH50, C3 #### [facility] , #### ESR, CBC, ADDONUAPLUS, CMP #### [facility] [address] [place] [address] Serum or plasma albumin/glob ulin mass ratioOrdered By: Obie Hylton on 05-27-2023 Albumin/Globulin [Mass ratio] 1.9 {ratio} Normal [facility] Comment on above: Performed By: #### C 4, CH50, C3 #### [facility] , #### ESR, CBC, ADDONUAPLUS, CMP #### [facility] [address] [place] [address] Serum or plasma anion gap de terminationOrdered By: Obie Ramirezrow on 05-27-2023 Anion gap [Moles/Vol] 8.4 mmol/L Normal 6.0-15.0 [facility] Comment on above: Performed By: #### C 4, CH50, C3 #### [facility] , #### ESR, CBC, ADDONUAPLUS, CMP #### [facility] [address] [place] [address] Sodium [Moles/volume] in Ser um or PlasmaOrdered By: Obie Hylton on 05-27-2023 Sodium [Moles/Vol] 143 mmol/L Normal 136-145 [facility] Comment on above: Performed By: #### C 4, CH50, C3 #### [facility] , #### ESR, CBC, ADDONUAPLUS, CMP #### [facility] [address] [place] [address] Specific gravity Auto test s trip (U) [Rel density]Ordered By: Obie Hylton on 05-27-2023 Specific gravity (U) [Rel density] 1.017 1.001-1.03 0 [facility] Squamous epithelial cells de tection in urine sediment by light microscopyOrdered By: Obie Hylton on 05-27-2023 Epithelial cells.squamous LM Ql (Urine sed) 1-2 [HPF] 0-2 [facility] Urea nitrogen [Mass/volume] in Serum or PlasmaOrdered By: Obie Hylton on 05-27-2023 Urea nitrogen [Mass/Vol] 25 mg/dL Normal 7-25 [facility] Comment on above: Performed By: #### C 4, CH50, C3 #### [facility] , #### ESR, CBC, ADDONUAPLUS, CMP #### [facility] [address] [place] [address] Urine bacteria detection by automated methodOrdered By: Obie Hylton on 05-27-2023 Bacteria Auto Ql (U) None seen None Seen [facility] Urine clarity by refractomet ry automatedOrdered By: Obie Hylton on 05-27-2023 Clarity Refractometry automated (U) Cloudy Clear [facility] Urine glucose measurement by automated test strip (mass/volume)Ordered By: Obie Hylton on 05-27-2023 Glucose Auto test strip (U) [Mass/Vol] Normal mg/dL Normal [facility] Urine hemoglobin detection b y automated test stripOrdered By: Obie Hylton on 05-27-2023 Hemoglobin Auto test strip Ql (U) Trace Negative [facility] Urine leukocyte esterase det ection by automated test stripOrdered By: Obie Hylton on 05-27-2023 Leukocyte esterase Auto test strip Ql (U) Negative Negative [facility] Urine pH measurement by auto mated test stripOrdered By: Obie Hylton on 05-27-2023 pH (U) 5.5 [pH] Normal 5.0-9.0 [facility] Comment on above: Order Comment: Name Collection Type:: Clean-Voided Midstream Performed By: #### C 3, CH50, C4 #### [facility] , #### ESR, CMP, CBC, ADDONUAPLUS #### [facility] [address] Urobilinogen Auto test strip (U) [Mass/Vol]Ordered By: Obie Hylton on 05-27-2023 Urobilinogen (U) [Mass/Vol] Normal mg/dL Normal [facility] Cult,Urineon 05-21-2023 Cult,Urine Specimen Description .CLEAN [...] Tobramycin <=1 SUSCEPTIBLE Trimethoprim/Sulfa <=20 SUSCEPTIBLE Susceptible [facility] Comment on above: Performed By: #### B MP, TROPI, CBC, TSH #### [facility] [address] [place] [address] Life Enrichment Assistant: Angelito Muir MD [facility] DIGITAL SCREEN ROLO Rivas 05-14-2023 [facility] DIGITAL SCREEN BILATERAL HISTORY: Screening. [...] Valentin Jr., MD 05/14/23 Final result Normal [facility] Follow-Upon 04-11-2023 Follow-Up [id number] Betty Riosoz Payan 1945 F Date Provider Department Center 04/11/2023 [id number], XU NWO [facility] No family history on file Level of Service:09032 NM OFFICE/OUTPATIENT ESTABLISHED LOW MDM 20-29 MIN Normal [facility] Office Visiton 03-28-2023 Follow-up visit [id number] BlancaGenny 1945 Date Provider Department Center 03/28/2023 [id number], XU NWO [facility] No family history on file Level of Service:83913 NM OFFICE/OUTPATIENT NEW MODERATE MDM 45-59 MINUTES Normal [facility] US RENAL LIMITEDon US RENAL LIMITED EXAMINATION: ULTRASOUND OF THE KIDNEYS 03/13/2023 10:12 am COMPARISON: None. HISTORY: ORDERING SYSTEM PROVIDED HISTORY: Renal cyst TECHNOLOGIST PROVIDED HISTORY: This procedure can be scheduled via [employer]. Access your [employer] account by visiting [employer]. FINDINGS: The right kidney measures 11.7 cm in length and the left kidney measures 11.3 cm in length. Normal renal cortical echogenicity. No hydronephrosis or nephrolithiasis. Simple right renal cyst 5 cm. Simple left renal cyst 5.2 cm. IMPRESSION: Simple bilateral renal cysts with otherwise unremarkable exam Interpreted by: Jonny Lopez DO Signed by: Jonny Lopez DO 03/13/23 Final result Normal [facility] Simple bilateral agus al cysts with otherwise unremarkable exam [facility] RIS CONSOLIDATED EXAMINATION: ULTRASOUND OF THE KIDNEYS 03/13/2023 10:12 am COMPARISON: None. HISTORY: ORDERING SYSTEM PROVIDED HISTORY: Renal cyst TECHNOLOGIST PROVIDED HISTORY: This procedure can be scheduled via [employer]. Access your [employer] account by visiting [employer]. FINDINGS: The right kidney measures 11.7 cm in length and the left kidney measures 11.3 cm in length. Normal renal cortical echogenicity. No hydronephrosis or nephrolithiasis. Simple right renal cyst 5 cm. Simple left renal cyst 5.2 cm. [facility] RIS CONSOLIDATED Jonny Lopez, DO - 03/13/2023 EXAMINATION: ULTRASOUND OF THE KIDNEYS 03/13/2023 10:12 am COMPARISON: None. HISTORY: ORDERING SYSTEM PROVIDED HISTORY: Renal cyst TECHNOLOGIST PROVIDED HISTORY: This procedure can be scheduled via [employer]. Access your [employer] account by visiting [employer]. FINDINGS: The right kidney measures 11.7 cm in length and the left kidney measures 11.3 cm in length. Normal renal cortical echogenicity. No hydronephrosis or nephrolithiasis. Simple right renal cyst 5 cm. Simple left renal cyst 5.2 cm. IMPRESSION: Simple bilateral renal cysts with otherwise unremarkable exam [employer] Radiology Study observation (narrative) [employer] US RENAL LIMITEDOrdered By: Jnony Lopez on 03-13-2023 [employer] Work Phone: XR lumbar spine 6V w bending on 03-07-2023 XR lumbar spine 6V w bending [facility] [place] [address] XRay Report Signed Patient: Mary Jane Rios MR#: [id number] 15 : 1945 Acct:[id number] Age/Sex: 77 / F ADM Date: 03/07/23 Loc: XD Room: Type: [facility] Attending Dr: Mukul Wilson MD Copies to: [...] Jabier Alexander M.D.03/07/2023 12:27 PM Dictation Location: [place] [address] Transcribed By: [facility] 03/07/23 122 Dictated By: Jabier Alexander DO 03/07/23 1225 Signed By: 03/07/23 122 Normal [facility] Consent for Procedure/Surger yon 03-01-2023 Consent for Procedure/Surgery [id number]:[id number] [facility] Ambulatory Visit Summaryon 0 02-28-2023 Ambulatory Visit Summary BETTY RIOSJEAN Payan :1945 Visit Date:02/28/2023 Ambulatory Visit Instructions Your [...] tablet) fluticasone nasal (fluticasone 0.05 mg/inh Nasal [place]) levothyroxine (levothyroxine 50 mcg (0.05 mg) Tab) [...] fluticasone nasal (fluticasone 0.05 mg/ inh Nasal [place]) 50 Microgram Nasal Inhalation Every day Unchanged [...] Nocturia Sl (more content not included)... Normal [facility] Cult,Urineon 02-28-2023 Cult,Urine Specimen Description .CLEAN CATCH URINE Culture NO SIGNIFICANT GROWTH Report Status FINAL 02/28/2023 Normal [facility] Comment on above: Performed By: #### B MP, TROPI, CBC, TSH #### [facility] [address] [place] [address] Life Enrichment Assistant: Angelito Muir MD Basic Metabolic Profon 02-27 Anion gap [Moles/Vol] 9 mmol/L Normal 9-17 [facility] Comment on above: Performed By: #### B MP, TROPI, CBC, TSH #### [facility] [address] [place] [address] Life Enrichment Assistant: Angelito Muir MD BUN/CRE Ratio 26 High 9-20 [facility] Comment on above: Performed By: #### B MP, TROPI, CBC, TSH #### [facility] [address] [place] [address] Life Enrichment Assistant: Angelito Muir MD Calcium [Mass/Vol] 9.2 mg/dL Normal 8.6-10.4 [facility] Comment on above: Performed By: #### B MP, TROPI, CBC, TSH #### [facility] [address] [place] [address] Life Enrichment Assistant: Angelito Muir MD Chloride [Moles/Vol] 104 mmol/L Normal 98-107 [facility] Comment on above: Performed By: #### B MP, TROPI, CBC, TSH #### [facility] [address] [place] [address] Life Enrichment Assistant: Angelito Muir MD CO2 [Moles/Vol] 25 mmol/L Normal 20-31 [facility] Comment on above: Performed By: #### B MP, TROPI, CBC, TSH #### [facility] [address] [place] [address] Life Enrichment Assistant: Angelito Muir MD Creatinine [Mass/Vol] 1.1 mg/dL High 0.5-0.9 [facility] Comment on above: Performed By: #### B MP, TROPI, CBC, TSH #### [facility] [address] [place] [phone] Life Enrichment Assistant: Angelito Muir MD GFR/1.73 sq M.predicted among non-blacks MDRD (S/P/Bld) [Vol rate/Area] 51 mL/min/{1.73_m2} Low >60 [facility] Comment on above: Result Comment: [...] #### B MP, TROPI, CBC, TSH #### [facility] [address] [place] [phone] Life Enrichment Assistant: Angelito Muir MD Glucose [Mass/Vol] 93 mg/dL Normal 70-99 [facility] Comment on above: Performed By: #### B MP, TROPI, CBC, TSH #### [facility] [address] [place] [phone] Life Enrichment Assistant: Angelito Muir MD Potassium [Moles/Vol] 4.2 mmol/L Normal 3.7-5.3 [facility] Comment on above: Performed By: #### B MP, TROPI, CBC, TSH #### [facility] [address] [place] [phone] Life Enrichment Assistant: Angelito Muir MD Sodium [Moles/Vol] 138 mmol/L Normal 135-144 [facility] Comment on above: Performed By: #### B MP, TROPI, CBC, TSH #### [facility] [address] [place] [phone] Life Enrichment Assistant: Angelito Muir MD Urea nitrogen [Mass/Vol] 29 mg/dL High 8-23 [facility] Comment on above: Performed By: #### B MP, TROPI, CBC, TSH #### [facility] [address] [place], [place] [phone] Life Enrichment Assistant: Angelito Muir MD CBC with Diffon 02-27-2023 Abs. Atypical Lymphs 0.20 k/uL Normal 0.0-1.0 [facility] Comment on above: Performed By: #### B MP, TROPI, CBC, TSH #### [facility] [address] [place], [place] [phone] Life Enrichment Assistant: Angelito Muir MD Abs. Basophil Normal 0.0-0.2 [facility] Comment on above: Performed By: #### B MP, TROPI, CBC, TSH #### [facility] [address] [place] [address] Life Enrichment Assistant: Angelito Muir MD Abs.Imm.Granulocyte Normal 0.00-0.30 [facility] Comment on above: Performed By: #### B MP, TROPI, CBC, TSH #### [facility] [address] [place], [place] [phone] Life Enrichment Assistant: Angelito Muir MD Abs.Neutrophil (Seg) 4.60 k/uL Normal 2.5-7.0 [facility] Comment on above: Performed By: #### B MP, TROPI, CBC, TSH #### [facility] [address] [place], [place] [phone] Life Enrichment Assistant: Angelito Muir MD Atypical Lymphs 3 % Normal [facility] Comment on above: Performed By: #### B MP, TROPI, CBC, TSH #### [facility] [address] [place] [address] Life Enrichment Assistant: Angelito Muir MD Basophil Normal 0-2 [facility] Comment on above: Performed By: #### B MP, TROPI, CBC, TSH #### [facility] [address] [place], [place] [phone] Life Enrichment Assistant: Angelito Muir MD Eosinophils (Bld) [#/Vol] 0.07 10*3/uL Normal 0.0-0.4 [facility] Comment on above: Performed By: #### B MP, TROPI, CBC, TSH #### [facility] [address] [place], [place] [phone] Life Enrichment Assistant: Angelito Muir MD Eosinophils/100 WBC (Bld) 1 % Normal 0-5 [facility] Comment on above: Performed By: #### B MP, TROPI, CBC, TSH #### [facility] [address] [place], [place] [phone] Life Enrichment Assistant: Angelito Muir MD Immature Granulocyte Normal 0 [facility] Comment on above: Performed By: #### B MP, TROPI, CBC, TSH #### [facility] [address] [place], [place] [phone] Life Enrichment Assistant: Angelito Muir MD Lymphocytes (Bld) [#/Vol] 1.24 10*3/uL Normal 1.0-4.8 [facility] Comment on above: Performed By: #### B MP, TROPI, CBC, TSH #### [facility] [address] [place], [place] [id number] Life Enrichment Assistant: Angelito Muir MD Lymphocytes/100 WBC (Bld) 19 % Normal 15-40 [facility] Comment on above: Performed By: #### B MP, TROPI, CBC, TSH #### [facility] [address] [place], [place] [phone] Life Enrichment Assistant: Angelito Muir MD Monocytes (Bld) [#/Vol] 0.39 10*3/uL Normal 0.0-1.0 [facility] Comment on above: Performed By: #### B MP, TROPI, CBC, TSH #### [facility] [address] [place], [place] [phone] Life Enrichment Assistant: Angelito Muir MD Monocytes/100 WBC (Bld) 6 % Normal 4-8 [facility] Comment on above: Performed By: #### B MP, TROPI, CBC, TSH #### [facility] [address] [place] [address] Life Enrichment Assistant: Angelito Muir MD Morphology Igor (Bld) [Interp] Manual Differential Performed Normal [facility] Comment on above: Performed By: #### B MP, TROPI, CBC, TSH #### [facility] [address] [place] [address] Life Enrichment Assistant: Angelito Muir MD Neutrophil (Seg) 71 % Normal 47-75 [facility] Comment on above: Performed By: #### B MP, TROPI, CBC, TSH #### [facility] [address] [place], [place] [phone] Life Enrichment Assistant: Angelito Muir MD Erythrocyte distribution width (RBC) [Ratio] 14.6 % Normal 12.1-15.2 [facility] Comment on above: Performed By: #### B MP, TROPI, CBC, TSH #### [facility] [address] [place], [place] [phone] Life Enrichment Assistant: Angelito Muir MD Hematocrit (Bld) [Volume fraction] 36.6 % Normal 36-46 [facility] Comment on above: Performed By: #### B MP, TROPI, CBC, TSH #### [facility] [address] [place] [address] Life Enrichment Assistant: Angelito Muir MD Hemoglobin (Bld) [Mass/Vol] 12.3 g/dL Normal 12.0-16.0 [facility] Comment on above: Performed By: #### B MP, TROPI, CBC, TSH #### [facility] [address] [place], [place] [phone] Life Enrichment Assistant: Angelito Muir MD MCH (RBC) [Entitic mass] 31.0 pg Normal 26-34 [facility] Comment on above: Performed By: #### B MP, TROPI, CBC, TSH #### [facility] [address] [place], [place] [phone] Life Enrichment Assistant: Angelito Muir MD MCHC (RBC) [Mass/Vol] 33.6 g/dL Normal 31-37 [facility] Comment on above: Performed By: #### B MP, TROPI, CBC, TSH #### [facility] [address] [place], [place] [phone] ([phone]) Life Enrichment Assistant: Angelito Muir MD MCV (RBC) [Entitic vol] 92.2 fL Normal 80-100 [facility] Comment on above: Performed By: #### B MP, TROPI, CBC, TSH #### [facility] [address] [place] [address] Life Enrichment Assistant: Angelito Muir MD Platelets (Bld) [#/Vol] 202 10*3/uL Normal 140-450 [facility] Comment on above: Performed By: #### B MP, TROPI, CBC, TSH #### [facility] [address] [place] [address] Life Enrichment Assistant: Angelito Muir MD RBC (Bld) [#/Vol] 3.97 10*6/uL Low 4.0-5.2 [facility] Comment on above: Performed By: #### B MP, TROPI, CBC, TSH #### [facility] [address] [place], [place] [phone] ([phone] Life Enrichment Assistant: Angelito Muir MD WBC (Bld) [#/Vol] 6.5 10*3/uL Normal 3.5-11.0 [facility] Comment on above: Performed By: #### B MP, TROPI, CBC, TSH #### [facility] [address] [place], [place] [phone] Life Enrichment Assistant: Angelito Muir MD Urinalysis, Routineon 2022 Bilirubin, SemiQt,Ur Negative Abnormal NEG [facility] Comment on above: Performed By: #### B MP, TROPI, CBC, TSH #### [facility] [address] [place] [address] Life Enrichment Assistant: Angelito Muir MD Blood, Urine TRACE Abnormal NEG [facility] Comment on above: Performed By: #### B MP, TROPI, CBC, TSH #### [facility] [address] [place] [address] Life Enrichment Assistant: Angelito Muir MD Clarity (U) Clear Normal CLEAR [facility] Comment on above: Performed By: #### B MP, TROPI, CBC, TSH #### [facility] [address] [place] [address] Life Enrichment Assistant: Angelito Muir MD Color (U) Yellow Normal YEL [facility] Comment on above: Performed By: #### B MP, TROPI, CBC, TSH #### [facility] [address] [place] [address] Life Enrichment Assistant: Angelito Muir MD Comment Normal [facility] Comment on above: Performed By: #### B MP, TROPI, CBC, TSH #### [facility] [address] [place] [address] Life Enrichment Assistant: Angelito Muir MD Glucose Ql (U) Negative Normal NEG [facility] Comment on above: Performed By: #### B MP, TROPI, CBC, TSH #### [facility] [address] [place] [address] Life Enrichment Assistant: Angelito Muir MD Ketones Ql (U) Negative Normal NEG [facility] Comment on above: Performed By: #### B MP, TROPI, CBC, TSH #### [facility] [address] [place], [place] [phone] Life Enrichment Assistant: Angelito Muir MD Leukocyte esterase Test strip Ql (U) 1+ Abnormal NEG [facility] Comment on above: Performed By: #### B MP, TROPI, CBC, TSH #### [facility] [address] [place] [address] Life Enrichment Assistant: Angelito Muir MD Nitrite,Ur Negative Normal NEG [facility] Comment on above: Performed By: #### B MP, TROPI, CBC, TSH #### [facility] [address] [place] [address] Life Enrichment Assistant: Angelito Muir MD PH,Ur 5.0 Normal 5.0-8.0 [facility] Comment on above: Performed By: #### B MP, TROPI, CBC, TSH #### [facility] [address] [place] [address] Life Enrichment Assistant: Angelito Muir MD Protein Ql (U) TRACE Abnormal NEG [facility] Comment on above: Performed By: #### B MP, TROPI, CBC, TSH #### [facility] [address] [place] [address] Life Enrichment Assistant: Angelito Muir MD Spec. [place],Ur 1.025 Normal 1.005-1.03 0 [facility] Comment on above: Performed By: #### B MP, TROPI, CBC, TSH #### [facility] [address] [place] [address] Life Enrichment Assistant: Angelito Muir MD Urobilinogen,Ur Normal Normal 0.0-1.0 [facility] Comment on above: Performed By: #### B MP, TROPI, CBC, TSH #### [facility] [address] [place] [phone] Life Enrichment Assistant: Angelito Muir MD Urinalysis,Microon 3 ----- Normal [facility] Comment on above: Performed By: #### B MP, TROPI, CBC, TSH #### [facility] [address] [place], [place] [phone] Life Enrichment Assistant: Angelito Muir MD Bacteria 2+ Abnormal NONE [facility] Comment on above: Performed By: #### B MP, TROPI, CBC, TSH #### [facility] [address] [place], [place] [phone] Life Enrichment Assistant: Angelito Muir MD Epithelial cells LM Ql (Urine sed) 20 TO 50 Normal [facility] Comment on above: Performed By: #### B MP, TROPI, CBC, TSH #### [facility] [address] [place], [place] [phone] Life Enrichment Assistant: Angelito Muir MD Urine RBC's 2 TO 5 Normal 0-2 [facility] Comment on above: Performed By: #### B MP, TROPI, CBC, TSH #### [facility] [address] [place], [place] [phone] Life Enrichment Assistant: Angelito Muir MD Urine WBC's 2 TO 5 Normal 0 [facility] Comment on above: Performed By: #### B MP, TROPI, CBC, TSH #### [facility] [address] [place] [address] Life Enrichment Assistant: Angelito Muir MD XR CHEST (2 VW)on [...] Karyn Kwon MD 02/27/23 Final result Normal [facility] MR lumbar spine wo conon MR lumbar spine wo con [facility] [place] [address] [place] [address] MRI Report Signed Patient: Mary Jane Rios MR#: [id number] 15 : 1945 Acct:[id number] Age/Sex: 77 / F ADM Date: 02/21/23 Loc: MR Room: Type: [facility] Attending Dr: Yanelis Garcia MD Copies to: [...] John Anguiano M.D.02/21/2023 4:09 PM Dictation Location: [place] [address] Transcribed By: [facility] 02/21/23 5737 Dictated By: John Anguiano II, MD 02/21/23 1554 Signed By: 02/21/23 [address] [place] [facility] Cult,Urineon 12-15-2022 Cult,Urine Specimen Description [...] ENCLCX Method PAULINO TAVAREZ Ceftriaxone SUSCEPTIBLE Susceptible [facility] Comment on above: Performed By: #### U #### [facility] [employer] [address] [place] [address] Life Enrichment Assistant: Ambrose Moura MD [facility] [address] [place], [place] [phone] Life Enrichment Assistant: Angelito Muir MD Urinalysis w/ Microon 2022 Bacteria TRACE Abnormal NONE [facility] Comment on above: Performed By: #### U AMIC #### [facility] [address] [place], [place] [phone] Life Enrichment Assistant: Angelito Muir MD Bilirubin, SemiQt,Ur Negative Normal NEG [facility] Comment on above: Performed By: #### U AMIC #### [facility] [address] [place], [place] [phone] Life Enrichment Assistant: Angelito Muir MD Blood, Urine 1+ Abnormal NEG [facility] Comment on above: Performed By: #### U AMIC #### [facility] [address] [place] [address] [address] [place], [place] [phone] Life Enrichment Assistant: Angelito Muir MD Clarity (U) Clear Normal CLEAR [facility] Comment on above: Performed By: #### U AMIC #### [facility] [address] [place] [address] Dr[address] [place], [place] [phone] Life Enrichment Assistant: Angelito Muir MD Color (U) Yellow Normal YEL [facility] Comment on above: Performed By: #### U AMIC #### [facility] [address] [place], [place] [phone] Life Enrichment Assistant: Angelito Muir MD Epithelial cells LM Ql (Urine sed) 0 TO 2 Normal 0-25 [facility] Comment on above: Performed By: #### U AMIC #### [facility] [address] [place], [place] [phone] Life Enrichment Assistant: Angelito Muir MD Glucose Ql (U) Negative Normal NEG [facility] Comment on above: Performed By: #### U AMIC #### [facility] [address] [place], [place] [phone] Life Enrichment Assistant: Angelito Muir MD Ketones Ql (U) Negative Normal NEG [facility] Comment on above: Performed By: #### U AMIC #### [facility] [address] [place], [place] [address] Life Enrichment Assistant: Angelito Muir MD Leukocyte esterase Test strip Ql (U) Negative Normal NEG [facility] Comment on above: Performed By: #### U AMIC #### [facility] [address] [place] [address] [place], [place] [address] Life Enrichment Assistant: Angelito Muir MD Nitrite,Ur Negative Normal NEG [facility] Comment on above: Performed By: #### U AMIC #### [facility] [address] [place] [address] [place], [place] [address] Life Enrichment Assistant: Angelito Muir MD PH,Ur 6.0 Normal 5.0-9.0 [facility] Comment on above: Performed By: #### U AMIC #### [facility] [address] [place] [address] Dr. [place], [place] [id number] Life Enrichment Assistant: Angelito Muir MD Protein Ql (U) Negative Normal NEG [facility] Comment on above: Performed By: #### U AMIC #### [facility] [address] [place] [address] Dr. [place], [place] [phone] [employer] Enrichment Assistant: Angelito Muir MD Spec. [place],Ur 1.020 Normal 1.010-1.02 0 [facility] Comment on above: Performed By: #### U AMIC #### [facility] [address] [place], [place] [id number] Life Enrichment Assistant: Angelito Muir MD Urine RBC's 0 TO 2 Normal 0-2 [facility] Comment on above: Performed By: #### U AMIC #### [facility] [address] [place], [place] [phone] Life Enrichment Assistant: Angelito uMir MD Urine WBC's 0 TO 2 Normal 0-5 [facility] Comment on above: Performed By: #### U AMIC #### [facility] [address] [place] [address] Life Enrichment Assistant: Angelito Muir MD Urobilinogen,Ur Normal Normal NORM [facility] Comment on above: Performed By: #### U AMIC #### [facility] [address] [place] [address] Life Enrichment Assistant: Angelito Muir MD CBC with Auto Differentialon 11-25-2022 Basophils (Bld) [#/Vol] 0.00 10*3/uL [facility] Basophils/100 WBC (Bld) 0 % 0 - 2 % [facility] Differential Type YES [facility] Eosinophils (Bld) [#/Vol] 0.10 10*3/uL [facility] Eosinophils/100 WBC (Bld) 2 % 0 - 5 % [facility] Erythrocyte distribution width (RBC) [Ratio] 14.0 % 12.1 - 15.2 % [facility] Hematocrit (Bld) [Volume fraction] 35.6 % Low 36 - 46 % [facility] Hemoglobin (Bld) [Mass/Vol] 12.0 g/dL 12.0 - 16.0 g/dL [facility] Interpretation and review of laboratory results Abnormal [facility] Lymphocytes/100 WBC (Bld) 27 % 15 - 40 % [facility] Lymphocytes/100 WBC (Bld) 1.30 % [facility] MCH (RBC) [Entitic mass] 31.0 pg 26 - 34 pg [facility] MCHC (RBC) [Mass/Vol] 33.8 g/dL 31 - 3 7 g/dL [facility] MCV (RBC) [Entitic vol] 91.6 fL 80 - 100 fL [facility] Monocytes/100 WBC (Bld) 9 % High 4 - 8 % [facility] Monocytes/100 WBC (Bld) 0.50 % [facility] Neutrophils/100 WBC (Bld) 62 % 47 - 75 % [facility] Platelets (Bld) [#/Vol] 240 10*3/uL [facility] RBC (Bld) [#/Vol] 3.89 10*6/uL Low 4.0 - 5.2 m/uL [facility] Segmented neutrophils/100 WBC (Bld) 3.10 % [facility] WBC other (Bld) [#/Vol] 5.0 [facility] Comprehensive Metabolic Pane trevor 11-25-2022 Albumin [Mass/Vol] 3.7 g/dL 3.5 - 5.2 g/dL [facility] ALP [Catalytic activity/Vol] 70 U/L 35 - 104 U/L [facility] ALT [Catalytic activity/Vol] 6 U/L 5 - 33 U/L [facility] Anion gap [Moles/Vol] 10 mmol/L 9 - 17 mmol/L [facility] AST [Catalytic activity/Vol] 15 U/L NINF - 32 U/L [facility] Bilirubin [Mass/Vol] 0.3 mg/dL 0.3 - 1 .2 mg/dL [facility] Calcium [Mass/Vol] 9.4 mg/dL 8.6 - 10. 4 mg/dL [facility] Chloride [Moles/Vol] 105 mmol/L 98 - 10 7 mmol/L [facility] CO2 [Moles/Vol] 24 mmol/L 20 - 31 mmol/L [facility] Creatinine [Mass/Vol] 1.12 mg/dL High 0.50 - 0.90 mg/dL [facility] GFR/1.73 sq M.predicted MDRD (S/P/Bld) [Vol rate/Area] 51 mL/min/{1.73_m2} Low - PINF [facility] Comment on above: These results are [...] 97 mg/dL 70 - 99 mg/dL [facility] Interpretation and review of laboratory results Abnormal [facility] Potassium [Moles/Vol] 4.1 mmol/L 3.7 - 5.3 mmol/L [facility] Protein [Mass/Vol] 6.7 g/dL 6.4 - 8.3 g/dL [facility] Sodium [Moles/Vol] 139 mmol/L 135 - 144 mmol/L [facility] Urea nitrogen [Mass/Vol] 32 mg/dL High 8 - 23 mg/dL [facility] Urea nitrogen/Creatinine [Mass ratio] 29 mg/mg High 9 - 20 [facility] Microscopic Urinalysison - [facility] Epithelial cells LM.HPF (Urine sed) [#/Area] 0 TO 2 /HPF [facility] RBC LM.HPF (Urine sed) [#/Area] 0 TO 2 [facility] WBC LM.HPF (Urine sed) [#/Area] NONE SEEN 0 /HPF [facility] Urinalysison 11-25-2022 Bilirubin Ql (U) Negative NEGATIVE [facility] Clarity (U) Clear Clear [facility] Color (U) Yellow Yellow [facility] Glucose Test strip (U) [Mass/Vol] Negative NEGATIVE [facility] Hemoglobin Auto test strip Ql (U) TRACE Abnormal NEGATIVE [facility] Interpretation and review of laboratory results Abnormal [facility] Ketones (U) [Mass/Vol] Negative NEGATIVE [facility] Leukocyte esterase Test strip Ql (U) Negative NEGATIVE [facility] Nitrite Ql (U) Negative NEGATIVE [facility] pH (U) 6.5 [pH] 5.0 - 8.0 [facility] Protein (U) [Mass/Vol] TRACE Abnormal NEGATIVE [facility] Specific gravity (U) [Rel density] 1.015 1.005 - 1.030 [facility] Urinalysis Comments [facility] Urobilinogen Qn (U) Normal Normal VIANNEY Field [facility] Candid io XR CHEST (2 VW)on 11-25-2022 No acute cardiopulmonary findings. [facility] EXAM: XR CHEST (2 VW ) INDICATION: Reason for exam:->Recently treated for Pneumonia. COMPARISON: 11/17/2022 TECHNIQUE: Chest radiograph(s) as above FINDINGS: Lines/Tubes: None Lungs: No pneumothorax, pleural effusion, or consolidation. Cardiomediastinal silhouette: Normal in size. Bones/Soft Tissues: No acute osseous abnormality. Right upper quadrant surgical clips. [facility] Bello Zheng MD - 11/25/2022 EXAM: XR CHEST (2 VW) INDICATION: Reason for exam:->Recently treated for Pneumonia. COMPARISON: 11/17/2022 TECHNIQUE: Chest radiograph(s) as above FINDINGS: Lines/Tubes: None Lungs: No pneumothorax, pleural effusion, or consolidation. Cardiomediastinal silhouette: Normal in size. Bones/Soft Tissues: No acute osseous abnormality. Right upper quadrant surgical clips. IMPRESSION: No acute cardiopulmonary findings. [employer] Work Phone: Radiology Study observation (narrative) [employer] Phone: XR CHEST (2 VW)Ordered By: Dejan Zheng on 11-25-2022 [employer] Phone: XR CHEST (2 VW)on 08-29-2022 FINDINGS/IMPRESSION: 1. Normal sized heart. 2. Clear lungs. [facility] EXAM: XR CHEST (2 VW ) HISTORY: Reason for exam:->HTN. COMPARISON: Portable chest 03/31/2020. [facility] Ishmael Valentin Jr., MD - 08/29/2022 EXAM: XR CHEST (2 VW) HISTORY: Reason for exam:->HTN. COMPARISON: Portable chest 03/31/2020. IMPRESSION: FINDINGS/IMPRESSION: 1. Normal sized heart. 2. Clear lungs. [employer] Phone: Radiology Study observation (narrative) [employer] Phone: XR CHEST (2 VW)Ordered By: Jo Valentin on 08-29-2022 [facility] [employer] [facility] [employer] Phone: Aspartate aminotransferase [ Enzymatic activity/volume] in Serum or PlasmaOrdered By: Obie Hylton on 08-21-2022 AST [Catalytic activity/Vol] 16 U/L 10-42 [facility] Automated erythrocytes count in urine sediment (number/area)Ordered By: Obie Hylton on 08-21-2022 RBC Auto (Urine sed) [#/Area] 1-2 [HPF] 0-4 [facility] Automated leukocytes count i n urine sediment (number/area)Ordered By: Obie Hylton on 08-21-2022 WBC Auto (Urine sed) [#/Area] 5-9 [HPF] 0-4 [facility] Basophils Auto (Bld) [#/Vol] Ordered By: Obie Hylton on 08-21-2022 Basophils (Bld) [#/Vol] 0.0 10*3/uL 0.0-0.2 [facility] Basophils/100 WBC Auto (Bld) Ordered By: Obie Hylton on 08-21-2022 Basophils/100 WBC (Bld) 0.3 % . [facility] Bilirubin Test strip Ql (U)O rdered By: Obie Hylton on 08-21-2022 Bilirubin Ql (U) Negative Negative [facility] Body fluid albumin measureme nt (mass/volume)Ordered By: Obie Hylton on 08-21-2022 Albumin (Body fld) [Mass/Vol] 3.6 g/dL 3.2-5.5 [facility] Cholesterol [Mass/volume] in Serum or PlasmaOrdered By: Kenneth Pascal on 08-21-2022 Cholesterol [Mass/Vol] 120 mg/dL 140-200 [facility] Comment on above: Chol less than 200 m g/dl low riskChol 201-239 mg/dl borderline riskChol 240 mg/dl and greater high risk Cholesterol in LDL Calc [Mas s/Vol]Ordered By: Kenneth Pascal on 08-21-2022 Cholesterol in LDL [Mass/Vol] 59 mg/dL 0-100 [facility] Comment on above: LDL ATP III CLASSIFI CATIONLDL less than 100 mg/dL OptimalLDL 100-129 mg/dL Near or above optimalLDL 130-159 mg/dL Borderline highLDL 160-189 mg/dL HighLDL greater than 189 mg/dL Very high Cholesterol in VLDL Calc [Cindy ss/Vol]Ordered By: Kenneth Pascal on 08-21-2022 Cholesterol in VLDL [Mass/Vol] 15 mg/dL [facility] Color Auto (U)Ordered By: Cindy Hylton on 08-21-2022 Color (U) Yellow Yellow [facility] Creatinine and Glomerular fi ltration rate.predicted panel (S/P/Bld)Ordered By: Obie Hylton on 08-21-2022 Creatinine [Mass/Vol] 1.19 mg/dL 0.44-1.03 [facility] Eosinophils Auto (Bld) [#/Vo l]Ordered By: Obie Hylton on 08-21-2022 Eosinophils (Bld) [#/Vol] 0.1 10*3/uL 0.0-0.45 [facility] Eosinophils/100 WBC Auto (Bl d)Ordered By: Obie Hylton on 08-21-2022 Eosinophils/100 WBC (Bld) 1.2 % . [facility] Erythrocyte distribution wid th Auto (RBC) [Ratio]Ordered By: Obie Hylton on 08-21-2022 Erythrocyte distribution width (RBC) [Ratio] 14.5 % 11.9-15.3 [facility] Erythrocyte sedimentation ra te by Photometric methodOrdered By: Obie Hylton on 08-21-2022 ESR Photometric method (Bld) [Velocity] 9 mm/hr 0-29 [facility] Estimated glomerular filtrat ion rate (GFR) non- AmericanOrdered By: Obie Hylton on 08-21-2022 GFR/1.73 sq M.predicted among non-blacks MDRD (S/P/Bld) [Vol rate/Area] 44 mL/Min [facility] Globulin Calc (S) [Mass/Vol] Ordered By: Obie Hylton on 08-21-2022 Globulin (S) [Mass/Vol] 2.6 g/dL [facility] Hematocrit Auto (Bld) [Volum e fraction]Ordered By: Obie Hylton on 08-21-2022 Hematocrit (Bld) [Volume fraction] 35.6 % 34.0-46.4 [facility] Hemoglobin [Mass/volume] in BloodOrdered By: Obie Hylton on 08-21-2022 Hemoglobin (Bld) [Mass/Vol] 11.9 g/dL 11.8-15.4 [facility] Ketones Auto test strip (U) [Mass/Vol]Ordered By: Obie Hylton on 08-21-2022 Ketones (U) [Mass/Vol] Negative Negative [facility] Laboratory - Chemistry and C hemistry - challengeOrdered By: Kenneth Pascal on 08-21-2022 Magnesium [Mass/Vol] 2.1 mg/dL 1.6-2.6 [facility] Laboratory - UrinalysisOrder ed By: Obie Hylton on 08-21-2022 Hyaline casts LM Ql (Urine sed) 0-8 [LPF] 0-8 [facility] Leukocytes [#/volume] correc pepito for nucleated erythrocytes in Blood by Automated counOrdered By: Obie Hylton on 08-21-2022 WBC corrected for nucl RBC Auto (Bld) [#/Vol] 4.7 10*3/uL 3.8-11.6 [facility] Lymphocytes Auto (Bld) [#/Vo l]Ordered By: Obie Hylton on 08-21-2022 Lymphocytes (Bld) [#/Vol] 1.0 10*3/uL 1.00-4.8 [facility] Lymphocytes/100 WBC Auto (Bl d)Ordered By: Obie Hylton on 08-21-2022 Lymphocytes/100 WBC (Bld) 21.8 % . [facility] MCH Auto (RBC) [Entitic mass ]Ordered By: Obie Hylton on 08-21-2022 MCH (RBC) [Entitic mass] 33.9 pg 24.7-34.3 [facility] MCHC Auto (RBC) [Mass/Vol]Or dered By: Obie Hylton on 08-21-2022 MCHC (RBC) [Mass/Vol] 33.5 g/dL 32.0-35.0 [facility] MCV Auto (RBC) [Entitic vol] Ordered By: Obie Hylton on 08-21-2022 MCV (RBC) [Entitic vol] 101.2 fL 80-100 [facility] Monocytes Auto (Bld) [#/Vol] Ordered By: Obie Hylton on 08-21-2022 Monocytes (Bld) [#/Vol] 0.4 10*3/uL 0.0-0.8 [facility] Monocytes/100 WBC Auto (Bld) Ordered By: Obie Hylton on 08-21-2022 Monocytes/100 WBC (Bld) 8.2 % . [facility] Neutrophils Auto (Bld) [#/Vo l]Ordered By: Obie Hylton on 08-21-2022 Neutrophils (Bld) [#/Vol] 3.2 10*3/uL 1.8-7.7 [facility] Neutrophils/100 WBC Auto (Bl d)Ordered By: Obie Hylton on 08-21-2022 Neutrophils/100 WBC (Bld) 68.5 % . [facility] Nitrite Test strip Ql (U)Ord ered By: Obie Hylton on 08-21-2022 Nitrite Ql (U) Negative Negative [facility] No Panel InformationOrdered By: Kenneth Pascal on 08-21-2022 25-Hydroxy Vitamin D Total 43.9 ng/mL 30-100 [facility] Comment on above: VITAMIN D STATUS 25( [place])VITAMIN D RANGE (ng/mL) Deficient <20 Insufficient 20 to <30Sufficient 30 to 100Reference: Jennifer MF,Babs NC, Blank GALLARDO, et al. Evaluation,treatment, and prevention of vitamin D deficiency; an Endocrine Society clinical practice guideline. JCEM. 2010; 96(7):1911-30. No Panel InformationOrdered By: Obie Hylton on 08-21-2022 Estimated GFR () 53 mL/Min [facility] Comment on above: GFR estimated refere nce range: According to KDOQI guidelines, <60 ml/min/1.73m2 is sufficient to diagnose a patient with chronic kidney disease. Pharmacy Creatinine Clearance (Chem N/A [facility] Nucleated erythrocytes [Pres ence] in Blood by Automated countOrdered By: Obie Hylton on 08-21-2022 Nucleated RBC Auto Ql (Bld) 0.2 /100{WBC} 0-0.5 [facility] Platelet mean volume Auto (B ld) [Entitic vol]Ordered By: Obie Hylton on 08-21-2022 Platelet mean volume (Bld) [Entitic vol] 9.0 fL 6.3-10.7 [facility] Platelets Auto (Bld) [#/Vol] Ordered By: Obie Hylton on 08-21-2022 Platelets (Bld) [#/Vol] 188 10*3/uL 150-450 [facility] Protein Auto test strip (U) [Mass/Vol]Ordered By: Obie Hylton on 08-21-2022 Protein (U) [Mass/Vol] Negative Negative [facility] Protein [Mass/volume] in Ser um or PlasmaOrdered By: Obie Hylton on 08-21-2022 Protein [Mass/Vol] 6.2 g/dL 6.1-7.9 [facility] RBC Auto (Bld) [#/Vol]Ordere d By: Obie Hylton on 08-21-2022 RBC (Bld) [#/Vol] 3.52 10*6/uL 3.60-5.00 [facility] Serum or plasma alanine negro otransferase measurement without P-5'-P (enzymatic activiOrdered By: Obie Hylton on 08-21-2022 ALT No additional P-5'-P [Catalytic activity/Vol] 12 U/L 10-60 [facility] Serum or plasma albumin/glob ulin mass ratioOrdered By: Obie Hylton on 08-21-2022 Albumin/Globulin [Mass ratio] 1.4 {ratio} [facility] Serum or plasma alkaline glen sphatase measurement (enzymatic activity/volume)Ordered By: Obie Hylton on 08-21-2022 ALP [Catalytic activity/Vol] 58 U/L 32-92 [facility] Serum or plasma anion gap de terminationOrdered By: Obie Hylton on 08-21-2022 Anion gap [Moles/Vol] 13.5 mmol/L 6.0-15.0 [facility] Serum or plasma calcium olivia urement (mass/volume)Ordered By: Obie Hylton on 08-21-2022 Calcium [Mass/Vol] 9.1 mg/dL 8.2-10.2 [facility] Serum or plasma chloride wilner surement (moles/volume)Ordered By: Obie Hylton on 08-21-2022 Chloride [Moles/Vol] 105 mmol/L 95-114 [facility] Serum or plasma glucose olivia urement (mass/volume)Ordered By: Obie Hylton on 08-21-2022 Glucose [Mass/Vol] 91 mg/dL 70-100 [facility] Comment on above: ADA recommended refe rence rangeRandom Glucose Reference Range is dependent on time and content of last meal. Glucose of more than 200 mg/dL in a nonstressed, ambulatory subject supports the diagnosis of Diabetes Mellitus. Serum or plasma high density lipoprotein (HDL) cholesterol measurementOrdered By: Kenneth Pascal on 08-21-2022 Cholesterol in HDL [Mass/Vol] 45 mg/dL 35-85 [facility] Comment on above: HDL CHOL ATP-III CLA SSIFICATION Cardiovascular RiskHDL > or equal to 60 mg/dL LOWHDL < 40 mg/dL HIGH Serum or plasma potassium me asurement (moles/volume)Ordered By: Obie Hylton on 08-21-2022 Potassium [Moles/Vol] 4.1 mmol/L 3.5-5.1 [facility] Serum or plasma sodium measu rement (moles/volume)Ordered By: Obie Hylton on 08-21-2022 Sodium [Moles/Vol] 138 mmol/L 136-146 [facility] Serum or plasma total biliru bin measurement (mass/volume)Ordered By: Obie Hylton on 08-21-2022 Bilirubin [Mass/Vol] 0.3 mg/dL 0.3-1.2 [facility] Serum or plasma total carbon dioxide measurement (moles/volume)Ordered By: Obie Hylton on 08-21-2022 CO2 [Moles/Vol] 23.6 mmol/L 22.0-30.0 [facility] Serum or plasma total choles terol/high density lipoprotein (HDL) cholesterol mass ratOrdered By: Kenneth Pascal on 08-21-2022 Cholesterol.total/Cho lesterol in HDL [Mass ratio] 2.7 {ratio} <5.0 [facility] Serum or plasma urea nitroge n measurement (mass/volume)Ordered By: Obie Hylton on 08-21-2022 Urea nitrogen [Mass/Vol] 25 mg/dL 9-23 [facility] Specific gravity Auto test s trip (U) [Rel density]Ordered By: Obie Hylton on 08-21-2022 Specific gravity (U) [Rel density] 1.014 1.001-1.03 0 [facility] Squamous epithelial cells de tection in urine sediment by light microscopyOrdered By: Obie Hylton on 08-21-2022 Epithelial cells.squamous LM Ql (Urine sed) 5-9 [HPF] 0-2 [facility] TSH DL <= 0.005 mIU/L QnOrde red By: Kenneth Pascal on 08-21-2022 TSH Qn 1.14 m[IU]/L 0.45-5.33 [facility] Triglyceride [Mass/volume] i n Serum or PlasmaOrdered By: Kenneth Pascal on 08-21-2022 Triglyceride [Mass/Vol] 78 mg/dL 35-149 [facility] Comment on above: TRIG ATP III CLASSIF ICATIONTRIG less than 150 mg/dL NormalTRIG 150-199 mg/dL Borderline highTRIG 200-500 mg/dL High TRIG greater than 500 mg/dL Very highStandard traceable to the Center for Disease Conrtrol and Prevention (CDC) test method. Urine bacteria detection by automated methodOrdered By: Obie Hylton on 08-21-2022 Bacteria Auto Ql (U) None seen None Seen [facility] Urine clarity by refractomet ry automatedOrdered By: Obie Hylton on 08-21-2022 Clarity Refractometry automated (U) Clear Clear [facility] Urine glucose measurement by automated test strip (mass/volume)Ordered By: Obie Hylton on 08-21-2022 Glucose Auto test strip (U) [Mass/Vol] Normal mg/dL Normal [facility] Urine hemoglobin detection b y automated test stripOrdered By: Obie Hylton on 08-21-2022 Hemoglobin Auto test strip Ql (U) Trace Negative [facility] Urine leukocyte esterase det ection by automated test stripOrdered By: Obie Hylton on 08-21-2022 Leukocyte esterase Auto test strip Ql (U) 1+ Negative [facility] Urobilinogen Auto test strip (U) [Mass/Vol]Ordered By: Obie Hylton on 08-21-2022 Urobilinogen (U) [Mass/Vol] Normal mg/dL Normal [facility] WBC Auto (Bld) [#/Vol]Ordere d By: Obie Hylton on 08-21-2022 WBC (Bld) [#/Vol] 4.7 10*3/uL 3.8-11.6 [facility] pH Auto test strip (U)Ordere d By: Obie Hylton on 08-21-2022 pH (U) 7.0 [pH] 5.0-9.0 [facility] CHEMISTRYOrdered By: SYSTEM SYSTEM on 07-10-2022 [...] 40 mL/min/1.73 m2 Low >=59mL/min /1.73 m2 [facility] Chem S Glucose [Mass/Vol] 97 mg/dL Normal 55 - 199 mg/dL [facility] Remisol Magnesium [Mass/Vol] 2.2 mg/dL Normal 1.3 - 2 .4 mg/dL [facility] Remisol Potassium [Moles/Vol] 4.4 mmol/L Normal 3.5 - 5.3 mmol/L [facility] Remisol Sodium [Moles/Vol] 140 mmol/L Normal 135 - 145 mmol/L [facility] Remisol Urea nitrogen [Mass/Vol] 37 mg/dL High 5 - 21 mg/dL [facility] Remisol Urea nitrogen/Creatinine [Mass ratio] 28 mg/mg High 10 - 20 [facility] Remisol Albumin [Mass/volume] in Ser um or PlasmaOrdered By: Obie Hylton on 02-22-2022 Albumin [Mass/Vol] 3.5 g/dL 3.2-5.5 [facility] Automated erythrocytes count in urine sediment (number/area)Ordered By: Obie Hylton on 02-22-2022 RBC Auto (Urine sed) [#/Area] 3-4 [HPF] 0-4 [facility] Automated leukocytes count i n urine sediment (number/area)Ordered By: Obie Hylton on 02-22-2022 WBC Auto (Urine sed) [#/Area] 1-2 [HPF] 0-4 [facility] Basophils Auto (Bld) [#/Vol] Ordered By: Obie Hylton on 02-22-2022 Basophils (Bld) [#/Vol] 0.0 10*3/uL 0.0-0.2 [facility] Basophils/100 WBC Auto (Bld) Ordered By: Obie Hylton on 02-22-2022 Basophils/100 WBC (Bld) 0.2 % . [facility] Bilirubin Test strip Ql (U)O rdered By: Obie Hylton on 02-22-2022 Bilirubin Ql (U) Negative Negative [facility] Blood hemoglobin measurement (mass/volume)Ordered By: Obie Hylton on 02-22-2022 Hemoglobin (Bld) [Mass/Vol] 12.3 g/dL 11.8-15.4 [facility] Blood leukocytes automated c ount (number/volume)Ordered By: Obie Hylton on 02-22-2022 WBC (Bld) [#/Vol] 5.1 10*3/uL 4.5-11.0 [facility] Color Auto (U)Ordered By: Cindy scott Warner on 02-22-2022 Color (U) Yellow Yellow [facility] Creatinine and Glomerular fi ltration rate.predicted panel (S/P/Bld)Ordered By: Obie Hylton on 02-22-2022 Creatinine [Mass/Vol] 1.16 mg/dL 0.44-1.03 [facility] Eosinophils Auto (Bld) [#/Vo l]Ordered By: Obie Hylton on 02-22-2022 Eosinophils (Bld) [#/Vol] 0.1 10*3/uL 0.0-0.45 [facility] Eosinophils/100 WBC Auto (Bl d)Ordered By: Obie Hylton on 02-22-2022 Eosinophils/100 WBC (Bld) 1.4 % . [facility] Erythrocyte distribution wid th Auto (RBC) [Ratio]Ordered By: Obie Hylton on 02-22-2022 Erythrocyte distribution width (RBC) [Ratio] 15.3 % 11.9-15.3 [facility] Estimated glomerular filtrat ion rate (GFR) non- AmericanOrdered By: Obie Hylton on 02-22-2022 GFR/1.73 sq M.predicted among non-blacks MDRD (S/P/Bld) [Vol rate/Area] 45 mL/Min [facility] Globulin Calc (S) [Mass/Vol] Ordered By: Obie Hylton on 02-22-2022 Globulin (S) [Mass/Vol] 2.5 g/dL [facility] Hematocrit Auto (Bld) [Volum e fraction]Ordered By: Obie Hylton on 02-22-2022 Hematocrit (Bld) [Volume fraction] 36.6 % 34.0-46.4 [facility] Ketones Auto test strip (U) [Mass/Vol]Ordered By: Obie Hylton on 02-22-2022 Ketones (U) [Mass/Vol] Negative Negative [facility] Laboratory - Hematology and Cell countsOrdered By: Obie Hylton on 02-22-2022 Nucleated RBC/100 WBC (Bld) [Ratio] 0.0 % 0-0.5 [facility] Laboratory - UrinalysisOrder ed By: Obie Hylton on 02-22-2022 Hyaline casts LM Ql (Urine sed) None seen [LPF] 0-8 [facility] [facility] Lymph[facility] Auto (Bld) [#/Vo l]Ordered By: Obie Hylton on 02-22-2022 Lymphocytes (Bld) [#/Vol] 1.1 10*3/uL 1.00-4.8 [facility] Lymphocytes/100 WBC Auto (Bl d)Ordered By: Obie Hylton on 02-22-2022 Lymphocytes/100 WBC (Bld) 22.2 % . [facility] MCH Auto (RBC) [Entitic mass ]Ordered By: Obie Hylton on 02-22-2022 MCH (RBC) [Entitic mass] 33.0 pg 24.7-34.3 [facility] MCHC Auto (RBC) [Mass/Vol]Or dered By: Obie Hylton on 02-22-2022 MCHC (RBC) [Mass/Vol] 33.5 g/dL 32.0-35.0 [facility] MCV Auto (RBC) [Entitic vol] Ordered By: Obie Hylton on 02-22-2022 MCV (RBC) [Entitic vol] 98.5 fL 80-100 [facility] Monocytes Auto (Bld) [#/Vol] Ordered By: Obie Hylton on 02-22-2022 Monocytes (Bld) [#/Vol] 0.5 10*3/uL 0.0-0.8 [facility] Monocytes/100 WBC Auto (Bld) Ordered By: Obie Hylton on 02-22-2022 Monocytes/100 WBC (Bld) 9.0 % . [facility] Neutrophils Auto (Bld) [#/Vo l]Ordered By: Obie Hylton on 02-22-2022 Neutrophils (Bld) [#/Vol] 3.5 10*3/uL 1.8-7.7 [facility] Neutrophils/100 WBC Auto (Bl d)Ordered By: Obie Hylton on 02-22-2022 Neutrophils/100 WBC (Bld) 67.2 % . [facility] Nitrite Test strip Ql (U)Ord ered By: Obie Hylton on 02-22-2022 Nitrite Ql (U) Negative Negative [facility] No Panel InformationOrdered By: Obie Hylton on 02-22-2022 Estimated GFR () 55 mL/Min [facility] Comment on above: GFR estimated refere nce range: According to KDOQI guidelines, <60 ml/min/1.73m2 is sufficient to diagnose a patient with chronic kidney disease. Pharmacy Creatinine Clearance (Chem N/A [facility] Platelet mean volume Auto (B ld) [Entitic vol]Ordered By: Obie Hylton on 02-22-2022 Platelet mean volume (Bld) [Entitic vol] 8.7 fL 6.3-10.7 [facility] Platelets Auto (Bld) [#/Vol] Ordered By: Obie Hylton on 02-22-2022 Platelets (Bld) [#/Vol] 182 10*3/uL 150-450 [facility] Protein Auto test strip (U) [Mass/Vol]Ordered By: Obie Hylton on 02-22-2022 Protein (U) [Mass/Vol] Negative Negative [facility] Protein [Mass/volume] in Ser um or PlasmaOrdered By: Obie Hylton on 02-22-2022 Protein [Mass/Vol] 6.0 g/dL 6.1-7.9 [facility] RBC Auto (Bld) [#/Vol]Ordere d By: Obie Hylton on 02-22-2022 RBC (Bld) [#/Vol] 3.72 10*6/uL 3.60-5.00 [facility] Serum or plasma alanine negro otransferase measurement without P-5'-P (enzymatic activiOrdered By: Obie Hylton on 02-22-2022 ALT No additional P-5'-P [Catalytic activity/Vol] 14 U/L 10-60 [facility] Serum or plasma albumin/glob ulin mass ratioOrdered By: Obie Hylton on 02-22-2022 Albumin/Globulin [Mass ratio] 1.4 {ratio} [facility] Serum or plasma alkaline glen sphatase measurement (enzymatic activity/volume)Ordered By: Obie Hylton on 02-22-2022 ALP [Catalytic activity/Vol] 54 U/L 32-92 [facility] Serum or plasma aspartate am inotransferase measurement (enzymatic activity/volume)Ordered By: Obie Hylton on 02-22-2022 AST [Catalytic activity/Vol] 17 U/L 10-42 [facility] Serum or plasma calcium olivia urement (mass/volume)Ordered By: Obie Hylton on 02-22-2022 Calcium [Mass/Vol] 9.0 mg/dL 8.2-10.2 [facility] Serum or plasma chloride wilner surement (moles/volume)Ordered By: Obie Hylton on 02-22-2022 Chloride [Moles/Vol] 107 mmol/L 95-114 [facility] Serum or plasma glucose olivia urement (mass/volume)Ordered By: Obie Hylton on 02-22-2022 Glucose [Mass/Vol] 90 mg/dL 70-100 [facility] Comment on above: ADA recommended refe [...] on 02-22-2022 Potassium [Moles/Vol] 4.2 mmol/L 3.5-5.1 [facility] Serum or plasma sodium measu rement (moles/volume)Ordered By: Obie Hylton on 02-22-2022 Sodium [Moles/Vol] 139 mmol/L 136-146 [facility] Serum or plasma total biliru bin measurement (mass/volume)Ordered By: Obie Hylton on 02-22-2022 Bilirubin [Mass/Vol] 0.5 mg/dL 0.3-1.2 [facility] Serum or plasma total carbon dioxide measurement (moles/volume)Ordered By: Obie Hylton on 02-22-2022 CO2 [Moles/Vol] 24.9 mmol/L 22.0-30.0 [facility] Serum or plasma urea nitroge n measurement (mass/volume)Ordered By: Obie Hylton on 02-22-2022 Urea nitrogen [Mass/Vol] 25 mg/dL 9-23 [facility] Specific gravity Auto test s trip (U) [Rel density]Ordered By: Obie Hylton on 02-22-2022 Specific gravity (U) [Rel density] 1.015 1.001-1.03 0 [facility] Squamous epithelial cells de tection in urine sediment by light microscopyOrdered By: Obie Hylton on 02-22-2022 Epithelial cells.squamous LM Ql (Urine sed) 0-1 [HPF] 0-2 [facility] Urine bacteria detection by automated methodOrdered By: Obie Hylton on 02-22-2022 Bacteria Auto Ql (U) None seen None Seen [facility] Urine clarity by refractomet ry automatedOrdered By: Obie Hylton on 02-22-2022 Clarity Refractometry automated (U) Clear Clear [facility] Urine glucose measurement by automated test strip (mass/volume)Ordered By: Obie Hylton on 02-22-2022 Glucose Auto test strip (U) [Mass/Vol] Normal mg/dL Normal [facility] Urine hemoglobin detection b y automated test stripOrdered By: Obie Hylton on 02-22-2022 Hemoglobin Auto test strip Ql (U) 1+ Negative [facility] Urine leukocyte esterase det ection by automated test stripOrdered By: Obie Hylton on 02-22-2022 Leukocyte esterase Auto test strip Ql (U) Negative Negative [facility] Urobilinogen Auto test strip (U) [Mass/Vol]Ordered By: Obie Hylton on 02-22-2022 Urobilinogen (U) [Mass/Vol] Normal mg/dL Normal [facility] pH Auto test strip (U)Ordere d By: Obie Hylton on 02-22-2022 pH (U) 6.0 [pH] 5.0-9.0 [facility] ANA WU DIGITAL SCREEN BILA TERALon 02-01-2022 BI-RADS 1 - Negative, no evidence of malignancy. Normal interval followup in 12 months. OVERALL ASSESSMENT- NEGATIVE A letter of notification will be sent to the patient regarding the results. [facility] HISTORY: Screening. Family history of breast carcinoma. TECHNIQUE: Bilateral digital screening mammogram with CAD. 2-D and 3-D tomography. FINDINGS: Two views of each breast show scattered areas of fibroglandular density. No change from prior studies, most recent 01/20/2021. Suspicious calcifications: None. Suspicious mass: None. (If skin markers were applied, circles represent skin lesions and linear markers represent scars.) [facility] WU DIGITAL SCREEN BILA TERALOrdered By: Ishmael Valentin on 02-01-2022 [employer] Phone: [facility] WU DIGITAL SCREEN BILA TERALon 01-31-2022 Radiology Study observation (narrative) [employer] Phone: XR SHOULDER RIGHT (MIN 2 VIE WS)on 12-02-2021 FINDINGS/IMPRESSION: 1. No significant change since 08/10/2021. 2. Mild AC joint osteoarthrosis remains, with small marginal osteophytes. 3. Osseous ridging from chronic rotator cuff tendinopathy and small reactive subcortical cysts or surgical drill tracks remain in the greater tuberosity of the humerus. 4. No fracture, malalignment, or other acute bony abnormality is seen. [facility] CLINICAL HISTORY: Hi story of right rotator cuff repair surgery (Z98.276). RIGHT SHOULDER 3 VIEWS: COMPARISON: 08/10/2021. [facility] Norm Mcdonnell MD - 12/02/2021 CLINICAL HISTORY: History of right rotator cuff repair surgery (Z98.820). RIGHT SHOULDER 3 VIEWS: COMPARISON: 08/10/2021. IMPRESSION: FINDINGS/IMPRESSION: 1. No significant change since 08/10/2021. 2. Mild AC joint osteoarthrosis remains, with small marginal osteophytes. 3. Osseous ridging from chronic rotator cuff tendinopathy and small reactive subcortical cysts or surgical drill tracks remain in the greater tuberosity of the humerus. 4. No fracture, malalignment, or other acute bony abnormality is seen. [employer] Phone: XR SHOULDER RIGHT (MIN 2 VIE WS)Ordered By: Norm Mcdonnell on 12-02-2021 [employer] Work Phone: XR SHOULDER RIGHT (MIN 2 VIE WS)on 11-30-2021 Radiology Study observation (narrative) [employer] Work Phone: Microscopic Urinalysison - [facility] Bacteria, UA TRACE Abnormal None [facility] Epithelial Cells UA 0 TO 2 [facility] Interpretation and review of laboratory results Abnormal [facility] RBC, UA 0 TO 2 [facility] WBC, UA 0 TO 2 [facility] Urinalysis with Reflex to Cu ltureon [...] Protein, UA Negative NEGATIVE [facility] Specific [place], UA 1.025 [facility] Turbidity UA Clear Clear [facility] Urine Hgb 2+ Abnormal NEGATIVE [facility] Urobilinogen, Urine Normal Normal [facility] Microscopic Urinalysison - [facility] Bacteria, [...] UA TRACE Abnormal NEGATIVE [facility] Specific [place], UA 1.020 [facility] Turbidity UA Hazy Abnormal Clear [employer] Urinalysis Comments [employer] Urine Hgb 2+ Abnormal NEGATIVE [employer] Urobilinogen, Urine Normal Normal [facility] XR SHOULDER RIGHT (MIN 2 VIE WS)on 08-10-2021 Mild degenerative changes. No acute process. [facility] HISTORY: Pain status post right shoulder arthroscopy TECHNIQUE: 3 views of the right shoulder were obtained COMPARISON: 04/27/2021 FINDINGS: There are mild degenerative changes of acromioclavicular joint. No fracture, dislocation or acute osseous abnormality seen. [facility] John Jauregui MD - 08/10/2021 HISTORY: Pain status post right shoulder arthroscopy TECHNIQUE: 3 views of the right shoulder were obtained COMPARISON: 04/27/2021 FINDINGS: There are mild degenerative changes of acromioclavicular joint. No fracture, dislocation or acute osseous abnormality seen. IMPRESSION: Mild degenerative changes. No acute process. 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 [employer] Phone: EXAM: XR SHOULDER RI GHT (MIN 2 VIEWS) HISTORY: M25.511. 75-year-old female right shoulder pain. COMPARISON: None. TECHNIQUE: 3 views right shoulder, 4 images. FINDINGS: Moderate degenerative change acromioclavicular joint. Minimal narrowing glenohumeral joint. Negative for calcific bursitis. [employer] Phone: Magdiel, Mhpn Incoming R adiant Results From [employer]dtMEDIA/[employer] - 04/27/2021 12:21 PM EDT EXAM: XR SHOULDER RIGHT (MIN 2 VIEWS) HISTORY: M25.511. 75-year-old female right shoulder pain. COMPARISON: None. TECHNIQUE: 3 views right shoulder, 4 images. FINDINGS: Moderate degenerative change acromioclavicular joint. Minimal narrowing glenohumeral joint. Negative for calcific bursitis. IMPRESSION: Degenerative changes not unusual for age at the acromioclavicular joint. [employer] Phone: [employer] Phone: CBCOrdered By: Roni Dahl on 01-09-2021 Hematocrit (Bld) [Volume fraction] 33.2 % Low 36 - 46 % [employer] Phone: Hemoglobin.gastrointe stinal spec 1 Ql (Stl) 11.5 g/dL Low 12.0 - 16.0 g/dL [employer] Phone: Interpretation and review of laboratory results Abnormal [employer] Phone: MCH (RBC) [Entitic mass] 31.6 pg 26 - 34 pg [employer] Phone: MCHC (RBC) [Mass/Vol] 34.7 g/dL 31 - 3 7 g/dL [employer] Phone: MCV (RBC) [Entitic vol] 91.2 fL 80 - 100 fL [employer] Phone: NRBC Automated NOT REPORTED per 100 WBC [employer] Phone: Platelet distribution width (Bld) [Ratio] 15.6 % High 12.1 - 15.2 % [employer] Phone: Platelet mean volume (Bld) [Entitic vol] NOT REPORTED 6.0 - 12.0 fL [employer] Phone: Platelets (Bld) [#/Vol] 223 10*3/uL [employer] Phone: RBC (Bld) [#/Vol] 3.64 10*6/uL Low 4.0 - 5.2 m/uL [employer] Phone: WBC (Bld) [#/Vol] 4.1 10*3/uL [employer] Phone: [employer] Phone: CBCOrdered By: Roni Dahl on 12-09-2020 Hematocrit (Bld) [Volume fraction] 34.2 % Low 36 - 46 % [employer] Phone: Hemoglobin.gastrointe stinal spec 1 Ql (Stl) 11.6 g/dL Low 12.0 - 16.0 g/dL [employer] Phone: Interpretation and review of laboratory results Abnormal [employer] Phone: MCH (RBC) [Entitic mass] 30.6 pg 26 - 34 pg [employer] Work Phone: MCHC (RBC) [Mass/Vol] 33.8 g/dL 31 - 3 7 g/dL [employer] Phone: MCV (RBC) [Entitic vol] 90.7 fL 80 - 100 fL [employer] Phone: NRBC Automated NOT REPORTED per 100 WBC [employer] Phone: Platelet distribution width (Bld) [Ratio] 14.1 % 12.1 - 15.2 % [employer] Phone: Platelet mean volume (Bld) [Entitic vol] NOT REPORTED 6.0 - 12.0 fL [employer] Phone: Platelets (Bld) [#/Vol] 365 10*3/uL [employer] Phone: RBC (Bld) [#/Vol] 3.78 10*6/uL Low 4.0 - 5.2 m/uL [employer] Phone: WBC (Bld) [#/Vol] 6.3 10*3/uL [employer] Work Phone: [employer] Phone: CBC Auto DifferentialOrdered By: Darryl Sandoval on 11-27-2020 [employer] Eos # 0.16 [place] [facility] Work Phone: Absolute Immature Granulocyte 0.35 High [employer] Work Phone: [employer] Lymph # 1.[address] [place] [facility] Work Phone: Absolute [place] # 0.95 [employer] [facility] Work Phone: Basophils (Bld) [#/Vol] 10*3/uL [employer] Work Phone: Basophils/100 WBC (Bld) 0 % 0 - 2 % [employer] Phone: Differential Type NOT REPORTED [employer] Phone: Eosinophils/100 WBC (Bld) 2 % 1 - 4 % [employer] Work Phone: Hematocrit (Bld) [Volume fraction] 34.3 % Low 36.3 - 47.1 % [employer] Work Phone: Hemoglobin.gastrointe stinal spec 1 Ql (Stl) 11.0 g/dL Low 11.9 - 15.1 g/dL [employer] Phone: Immature granulocytes/100 WBC (Bld) 5 % High 0 [employer] Work Phone: Interpretation and review of laboratory results Abnormal [employer] Phone: Lymphocytes/100 WBC (Bld) 16 % Low 24 - 43 % [employer] Work Phone: MCH (RBC) [Entitic mass] 30.5 pg 25.2 - 33.5 pg [employer] Phone: MCHC (RBC) [Mass/Vol] 32.1 g/dL 28.4 - 34.8 g/dL [employer] Phone: MCV (RBC) [Entitic vol] 95.0 fL 82.6 - 102.9 fL [employer] Phone: Monocytes/100 WBC (Bld) 12 % 3 - 12 % [employer] Phone: NRBC Automated 0.0 0.0 per 100 WBC [employer] Phone: Platelet distribution width (Bld) [Ratio] 13.3 % 11.8 - 14.4 % [employer] Phone: Platelet Estimate NOT REPORTED [employer] Phone: Platelet mean volume (Bld) [Entitic vol] 9.7 fL 8.1 - 13.5 fL [employer] Phone: Platelets (Bld) [#/Vol] 242 10*3/uL [employer] Phone: RBC (Bld) [#/Vol] 3.61 10*6/uL Low 3.95 - 5.11 m/uL [employer] Phone: RBC (Bld) [#/Vol] NOT REPORTED [employer] Phone: Segmented neutrophils/100 WBC (Bld) 65 % 36 - 65 % [employer] Phone: Segs Absolute 5.07 [employer] Work Phone: WBC (Bld) [#/Vol] 7.8 10*3/uL [employer] Phone: WBC (Bld) [#/Vol] NOT REPORTED [employer] Phone: [employer] Phone: COVID-19, RapidOrdered By: Vazquez Sandoval on 11-27-2020 SARS-CoV-2 (COVID-19) RNA JUAQUIN+probe Ql (Unsp spec) Not detected Not Detected [employer] Phone: Comment on above: Rapid NAAT: The [...] management decisions. Fact sheet for Healthcare Providers: https://www.fda.gov/media/835919/download Fact sheet for Patients: https://www.Klocwork.gov/media/889054/download Methodology: Isothermal Nucleic Acid Amplification Specimen Description .NASOPHARYNGEAL SWAB [employer] Phone: [employer] Phone: Comprehensive Metabolic Pane lOrdered By: Darryl Sandoval on 11-27-2020 Albumin [Mass/Vol] 3 g/dL Low 3.5 - 5.2 g/dL [employer] Phone: Albumin/Globulin [Mass ratio] 0.8 {ratio} Low [employer] Phone: ALP (Bld) [Catalytic activity/Vol] 154 U/L High 35 - 104 U/L [employer] Phone: ALT [Catalytic activity/Vol] 45 U/L High 5 - 33 U/L [employer] Phone: Anion gap [Moles/Vol] 11 mmol/L 9 - 17 mmol/L [employer] Phone: AST [Catalytic activity/Vol] 44 U/L High <32 [employer] Phone: Bilirubin [Mass/Vol] 0.35 mg/dL 0.3 - 1 .2 mg/dL [employer] Phone: Calcium [Mass/Vol] 9.4 mg/dL 8.6 - 10. 4 mg/dL [employer] Phone: Chloride [Moles/Vol] 103 mmol/L 98 - 10 7 mmol/L [employer] Phone: CO2 [Moles/Vol] 21 mmol/L 20 - 31 mmol/L [employer] Phone: Creatinine [Mass/Vol] 1 mg/dL High 0.50 - 0.90 mg/dL [employer] Phone: Free PSA/Total PSA [Mass fraction] 7.0 g/dL 6.4 - 8.3 g/dL [employer] Phone: GFR >60 >60 mL/min [employer] Phone: GFR Non- 54 mL/min Low >60 [employer] Phone: Glucose [Mass/Vol] 87 mg/dL 70 - 99 mg/dL [employer] Phone: Interpretation and review of laboratory results Abnormal [employer] Phone: Potassium [Moles/Vol] 4.1 mmol/L 3.7 - 5.3 mmol/L [employer] Phone: Sodium [Moles/Vol] 135 mmol/L 135 - 144 mmol/L [employer] Phone: Urea nitrogen (BldV) [Mass/Vol] 16 mg/dL 8 - 23 mg/dL [employer] Phone: Urea nitrogen/Creatinine (Bld) [Mass ratio] 16 [employer] Phone: [employer] Phone: Laboratory - Chemistry and C hemistry - challengeOrdered By: Darryl Sandoval on 11-27-2020 GFR/1.73 sq M.predicted MDRD (S/P/Bld) [Vol rate/Area] [employer] Phone: Comment on above: Average GFR for 70 o r more years old: 75 mL/min/1.73sq m Chronic Kidney Disease: <60 mL/min/1.73sq m Kidney failure: <15 mL/min/1.73sq m eGFR calculated using average adult body mass. Additional eGFR calculator available at: http://www.[employer]/multiple_crcl_2011.htm Stage 1: Some kidney damage normal GFR Stage 2: Mild kidney damage GFR 60-89 Stage 3: Moderate kidney damage GFR 30-59 Stage 4: Severe kidney damage GFR 15-29 Stage 5: Severe kidney damage GFR <15 ESRD - chronic treatment by dialysis or transplant LipaseOrdered By: Darryl farias on 11-27-2020 Lipase [Catalytic activity/Vol] 24 U/L 13 - 60 U/L [employer] Work Phone: [employer] Work Phone: MagnesiumOrdered By: Darryl Sandoval on 11-27-2020 Magnesium [Mass/Vol] 2.3 mg/dL 1.6 - 2 .6 mg/dL [employer] Work Phone: [employer] Work Phone: Urinalysis with MicroscopicO rdered By: Darryl Sandoval on 11-27-2020 - [employer] Work Phone: Amorphous, UA NOT REPORTED None [facility] Work Phone: Bacteria, UA TRACE Abnormal None [employer] Work Phone: Bilirubin Urine Negative NEGATIVE [employer] Work Phone: Casts UA NOT REPORTED /LPF [employer] Work Phone: Color, UA YELLOW YELLOW [employer] Work Phone: Crystals, UA NOT REPORTED None /HPF [facility] Work Phone: Epithelial Cells UA 2 TO 5 [employer] Work Phone: Glucose, Ur Negative NEGATIVE [employer] Work Phone: Interpretation and review of laboratory results Abnormal [employer] Work Phone: Ketones Ql (U) Negative NEGATIVE [facility] Work Phone: Leukocyte esterase Test strip Ql (U) Negative NEGATIVE [employer] Work Phone: Mucus, UA TRACE Abnormal None [employer] Work Phone: Nitrite, Urine Negative NEGATIVE [facility] Work Phone: Other Observations UA NOT REPORTED NOT REQ. [facility] Work Phone: pH, UA 6.0 [facility] Work Phone: Protein, UA Negative NEGATIVE [facility] Work Phone: RBC, UA 2 TO 5 [facility] Work Phone: Renal Epithelial, UA NOT REPORTED 0 /HPF [facility] Work Phone: Specific [place], UA 1.025 High [facility] Work Phone: Trichomonas, UA NOT REPORTED None [facility] Work Phone: Turbidity UA CLEAR CLEAR [facility] [employer] Work Phone: Urinalysis Comments NOT REPORTED [facility] Work Phone: Urine Hgb 1+ Abnormal NEGATIVE [facility] [employer] Work Phone: Urobilinogen, Urine Normal Normal [facility] [employer] Work Phone: WBC, UA 0 TO 2 [facility] [employer] Work Phone: Yeast, UA NOT REPORTED None [facility] [employer] Work Phone: [facility] Work Phone: Comprehensive Metabolic Pane lOrdered By: Roni Dahl on 11-22-2020 Albumin [Mass/Vol] 3.5 g/dL 3.5 - 5.2 g/dL [facility] [employer] Work Phone: Albumin/Globulin Ratio NOT REPORTED [facility] [employer] Work Phone: ALP (Bld) [Catalytic activity/Vol] 67 U/L 35 - 104 U/L [facility] [employer] Work Phone: ALT [Catalytic activity/Vol] 22 U/L 5 - 33 U/L [facility] [employer] Work Phone: Anion gap [Moles/Vol] 7 mmol/L Low 9 - 17 mmol/L [employer] Phone: AST [Catalytic activity/Vol] 21 U/L <32 [employer] Phone: Bilirubin [Mass/Vol] 0.35 mg/dL 0.30 - 1.20 mg/dL [employer] Phone: Calcium [Mass/Vol] 8.9 mg/dL 8.6 - 10. 4 mg/dL [employer] Phone: Chloride [Moles/Vol] 103 mmol/L 98 - 10 7 mmol/L [employer] Phone: CO2 [Moles/Vol] 26 mmol/L 20 - 31 mmol/L [employer] Phone: Creatinine [Mass/Vol] 0.98 mg/dL High 0.50 - 0.90 mg/dL [employer] Phone: Free PSA/Total PSA [Mass fraction] 6.3 g/dL Low 6.4 - 8.3 g/dL [employer] Phone: GFR >60 >60 mL/min [employer] Phone: GFR Non- 55 mL/min Low >60 [employer] Phone: GFR/1.73 sq M.predicted MDRD (S/P/Bld) [Vol rate/Area] [employer] Phone: Comment on above: Average GFR for 70 o r more years old: 75 mL/min/1.73sq m Chronic Kidney Disease: <60 mL/min/1.73sq m Kidney failure: <15 mL/min/1.73sq m eGFR calculated using average adult body mass. Additional eGFR calculator available at: http://www.[employer]/multiple_crcl_2012.htm GFR/1.73 sq M.predicted MDRD (S/P/Bld) [Vol rate/Area] NOT REPORTED [employer] Phone: Glucose [Mass/Vol] 94 mg/dL 70 - 99 mg/dL [employer] Phone: Interpretation and review of laboratory results Abnormal [employer] Phone: Potassium [Moles/Vol] 3.3 mmol/L Low 3.7 - 5.3 mmol/L [employer] Phone: Sodium [Moles/Vol] 136 mmol/L 135 - 144 mmol/L [employer] Phone: Urea nitrogen (BldV) [Mass/Vol] 16 mg/dL 8 - 23 mg/dL [employer] Phone: Urea nitrogen/Creatinine (Bld) [Mass ratio] 16 [employer] Phone: [employer] Phone: AmylaseOrdered By: Naida estrada on 11-18-2020 Amylase [Catalytic activity/Vol] 141 U/L High 28 - 100 U/L [employer] Phone: Interpretation and review of laboratory results Abnormal [employer] Phone: Basic Metabolic PanelOrdered By: Naida Grissom on 11-18-2020 Anion gap [Moles/Vol] 10 mmol/L 9 - 17 mmol/L [employer] Phone: Calcium [Mass/Vol] 8.9 mg/dL 8.6 - 10. 4 mg/dL [employer] Phone: Chloride [Moles/Vol] 105 mmol/L 98 - 10 7 mmol/L [employer] Phone: CO2 [Moles/Vol] 21 mmol/L 20 - 31 mmol/L [employer] Phone: Creatinine [Mass/Vol] 1.06 mg/dL High 0.50 - 0.90 mg/dL [employer] Phone: GFR >60 >60 mL/min [employer] Phone: GFR Non- 51 mL/min Low >60 [employer] Phone: GFR/1.73 sq M.predicted MDRD (S/P/Bld) [Vol rate/Area] [employer] Phone: Comment on above: Average GFR for 70 o r more years old: 75 mL/min/1.73sq m Chronic Kidney Disease: <60 mL/min/1.73sq m Kidney failure: <15 mL/min/1.73sq m eGFR calculated using average adult body mass. Additional eGFR calculator available at: http://www.[employer]_crcl_2012.htm GFR/1.73 sq M.predicted MDRD (S/P/Bld) [Vol rate/Area] NOT REPORTED [employer] Phone: Glucose [Mass/Vol] 139 mg/dL High 70 - 99 mg/dL [employer] Phone: Interpretation and review of laboratory results Abnormal [employer] Phone: Potassium [Moles/Vol] 3.4 mmol/L Low 3.7 - 5.3 mmol/L [employer] Phone: Sodium [Moles/Vol] 136 mmol/L 135 - 144 mmol/L [employer] Phone: Urea nitrogen (BldV) [Mass/Vol] 22 mg/dL 8 - 23 mg/dL [employer] Phone: Urea nitrogen/Creatinine (Bld) [Mass ratio] 21 High [employer] Phone: [employer] Phone: CBC auto differentialOrdered By: Naida Grissom on 11-18-2020 [employer] # 0.10 [place] [employer] [place] [facility] Work Phone: [employer] Immature Granulocyte NOT REPORTED [facility] Phone: Absolute Lymph # 0.60 Low [employer] Work Phone: Absolute [place] # 0.40 [employer] [facility] Work Phone: Basophils (Bld) [#/Vol] 0.00 10*3/uL [facility] Work Phone: Basophils/100 WBC (Bld) 0 % 0 - 2 % [facility] Work Phone: Differential Type YES [facility] [facility]lee [facility]alt Work Phone: Eosinophils/100 WBC (Bld) 1 % 0 - 5 % [employer] Work Phone: Hematocrit (Bld) [Volume fraction] 37.6 % 36 - 46 % [employer] Phone: Hemoglobin.gastrointe stinal spec 1 Ql (Stl) 12.9 g/dL 12.0 - 16.0 g/dL [employer] Phone: Immature Granulocytes NOT REPORTED 0 % M [employer] Work Phone: Interpretation and review of laboratory results Abnormal [employer] Phone: Lymphocytes/100 WBC (Bld) 8 % Low 15 - 40 % [employer] Phone: MCH (RBC) [Entitic mass] 31.8 pg 26 - 34 pg [employer] Phone: MCHC (RBC) [Mass/Vol] 34.4 g/dL 31 - 3 7 g/dL [employer] Phone: MCV (RBC) [Entitic vol] 92.4 fL 80 - 100 fL [employer] Phone: Monocytes/100 WBC (Bld) 6 % 4 - 8 % [employer] Phone: NRBC Automated NOT REPORTED per 100 WBC [employer] Phone: Platelet distribution width (Bld) [Ratio] 14.1 % 12.1 - 15.2 % [employer] Phone: Platelet Estimate NOT REPORTED [employer] Phone: Platelet mean volume (Bld) [Entitic vol] NOT REPORTED 6.0 - 12.0 fL [employer] Phone: Platelets (Bld) [#/Vol] 179 10*3/uL [employer] Phone: RBC (Bld) [#/Vol] 4.07 10*6/uL 4.0 - 5.2 m/uL [employer] Work Phone: RBC (Bld) [#/Vol] NOT REPORTED [employer] Phone: Segmented neutrophils/100 WBC (Bld) 85 % High 47 - 75 % [employer] Work Phone: Segs Absolute 5.80 [employer] Work Phone: WBC (Bld) [#/Vol] 6.9 10*3/uL [employer] Work Phone: WBC (Bld) [#/Vol] NOT REPORTED [employer] Phone: [employer] Work Phone: Hepatic Function PanelOrdere d By: Naida Grissom on 11-18-2020 Albumin [Mass/Vol] 3.7 g/dL 3.5 - 5.2 g/dL [employer] Phone: Albumin/Globulin Ratio NOT REPORTED [employer] Phone: ALP (Bld) [Catalytic activity/Vol] 84 U/L 35 - 104 U/L [employer] Phone: ALT [Catalytic activity/Vol] 63 U/L High 5 - 33 U/L [employer] Work Phone: AST [Catalytic activity/Vol] 104 U/L High <32 [employer] Phone: Bilirubin [Mass/Vol] 0.49 mg/dL 0.30 - 1.20 mg/dL [facility] [employer] Work Phone: Bilirubin, Indirect CANNOT BE CALCULATED 0.00 - 1.00 mg/dL [facility] [employer] Work Phone: Bilirubin.indirect [Mass/Vol] mg/dL <0.31 mg/dL [facility] [employer] Work Phone: Free PSA/Total PSA [Mass fraction] 6.9 g/dL 6.4 - 8.3 g/dL [facility] [employer] Work Phone: Globulin NOT REPORTED 1.5 - 3.8 g/dL [facility] [employer] Work Phone: Interpretation and review of laboratory results Abnormal [facility] [employer] Work Phone: [facility] Work Phone: LipaseOrdered By: Naida field on 11-18-2020 Lipase [Catalytic activity/Vol] 50 U/L 13 - 60 U/L [facility] [employer] Phone: Microscopic UrinalysisOrdere d By: Naida Grissom on 11-18-2020 - [facility] [employer] Work Phone: Amorphous, UA NOT REPORTED None [facility] Work Phone: Bacteria, UA 1+ Abnormal None [facility] Work Phone: Casts UA NOT REPORTED /LPF [facility] Work Phone: Crystals, UA NOT REPORTED None /HPF [facility] Work Phone: Epithelial Cells UA 0 TO 2 /HPF [facility] Work Phone: Mucus, UA NOT REPORTED None [facility] Work Phone: Other Observations UA NOT REPORTED NOT REQ. M [facility] [employer] Work Phone: RBC, UA 0 TO 2 [facility] Work Phone: Renal Epithelial, UA NOT REPORTED 0 /HPF [facility] Work Phone: Trichomonas, UA NOT REPORTED None [employer] Work Phone: WBC, UA 2 TO 5 0 /HPF [employer] Work Phone: Yeast, UA NOT REPORTED None [employer] Work Phone: No Panel InformationOrdered By: Naida Grissom on 11-18-2020 Interpretation and review of laboratory results Abnormal [employer] Work Phone: [employer] Work Phone: [employer] Work Phone: Urinalysis, reflex to micros copicOrdered By: Naida Grissom on 11-18-2020 Bilirubin Urine Negative NEGATIVE [place] [facility] Work Phone: Color, UA TARA Abnormal YELLOW [employer] Work Phone: Glucose, Ur Negative NEGATIVE [employer] Work Phone: Ketones Ql (U) Negative NEGATIVE [facility] Work Phone: Leukocyte esterase Test strip Ql (U) 1+ Abnormal NEGATIVE [employer] Work Phone: Nitrite, Urine Negative NEGATIVE [facility] Work Phone: pH, UA 5.0 [employer] Work Phone: Protein, UA Negative NEGATIVE [employer] Work Phone: Specific [place], UA 1.025 [employer] Work Phone: Turbidity UA CLEAR CLEAR [employer] Work Phone: Urinalysis Comments [employer] Work Phone: Urine Hgb 1+ Abnormal NEGATIVE [employer] Phone: Urobilinogen, Urine Normal Normal [employer] Phone: CBC Auto Differentialon 02- Basophils (Bld) [#/Vol] 0.00 10*3/uL [employer] Work Phone: Basophils/100 WBC (Bld) 0 % 0 - 2 % [employer] Phone: Differential Type YES [employer] Work Phone: Eosinophils (Bld) [#/Vol] 0.10 10*3/uL [employer] Phone: Eosinophils/100 WBC (Bld) 2 % 0 - 5 % [employer] Phone: Erythrocyte distribution width (RBC) [Ratio] 14.3 % 12.1 - 15.2 % [employer] Phone: Hematocrit (Bld) [Volume fraction] 36.5 % 36 - 46 % [employer] Phone: Hemoglobin (Bld) [Mass/Vol] 12.3 g/dL 12 - 16 g/dL [employer] Phone: Interpretation and review of laboratory results Abnormal [employer] Phone: Lymphocytes (Bld) [#/Vol] 1.20 10*3/uL [employer] Phone: Lymphocytes/100 WBC (Bld) 24 % 15 - 40 % [employer] Phone: MCH (RBC) [Entitic mass] 32.7 pg 26 - 34 pg [employer] Phone: MCHC (RBC) [Mass/Vol] 33.9 g/dL 31 - 3 7 g/dL [employer] Phone: MCV (RBC) [Entitic vol] 96.6 fL 80 - 100 fL [employer] Phone: Monocytes (Bld) [#/Vol] 0.50 10*3/uL [employer] Phone: Monocytes/100 WBC (Bld) 9 % High 4 - 8 % [employer] Phone: Platelet mean volume (Bld) [Entitic vol] NOT REPORTED 6 - 12 fL [employer] Work Phone: Platelets (Bld) [#/Vol] NOT REPORTED [employer] Phone: Platelets (Bld) [#/Vol] 223 10*3/uL [employer] Phone: RBC (Bld) [#/Vol] 3.77 10*6/uL Low 4 - 5.2 m/uL [employer] Work Phone: RBC morphology finding Nom (Bld) NOT REPORTED [employer] Work Phone: Segmented neutrophils/100 WBC (Bld) 65 % 47 - 75 % [employer] Work Phone: Segs Absolute 3.30 [employer] Work Phone: WBC (Bld) [#/Vol] 5.1 10*3/uL [employer] Work Phone: WBC (Bld) [#/Vol] NOT REPORTED per 100 WBC [employer] Work Phone: WBC Morphology NOT REPORTED [facility] Work Phone: Comprehensive Metabolic Pane trevor 08-11-2020 Albumin [Mass/Vol] 3.9 g/dL 3.5 - 5.2 g/dL [employer] Phone: Albumin/Globulin [Mass ratio] NOT REPORTED [employer] Work Phone: ALP [Catalytic activity/Vol] 76 U/L 35 - 104 U/L [employer] Work Phone: ALT [Catalytic activity/Vol] 16 U/L 5 - 33 U/L [employer] Phone: Anion gap [Moles/Vol] 10 mmol/L 9 - 17 mmol/L [employer] Phone: AST [Catalytic activity/Vol] 19 U/L <32 [employer] Phone: Bilirubin Ql (U) 0.35 mg/dL 0.3 - 1.2 mg/dL [employer] Phone: Bun/Cre Ratio 23 High [employer] Work Phone: Calcium [Mass/Vol] 9.9 mg/dL 8.6 - 10. 4 mg/dL [employer] Phone: Chloride [Moles/Vol] 105 mmol/L 98 - 10 7 mmol/L [employer] Phone: CO2 [Moles/Vol] 25 mmol/L 20 - 31 mmol/L [employer] Phone: Creatinine [Mass/Vol] 1.14 mg/dL High 0.5 - 0.9 mg/dL [employer] Phone: GFR 56 mL/min Low >60 [employer] Phone: GFR Non- 46 mL/min Low >60 [employer] Phone: GFR/1.73 sq M predicted among non-blacks MDRD (S/P/Bld) [Vol rate/Area] [employer] Phone: Comment on above: Average GFR for 70 o r more years old: 75 mL/min/1.73sq m Chronic Kidney Disease: <60 mL/min/1.73sq m Kidney failure: <15 mL/min/1.73sq m eGFR calculated using average adult body mass. Additional eGFR calculator available at: http://www.[employer]/multiple_crcl_2012.htm GFR/1.73 sq M predicted among non-blacks MDRD (S/P/Bld) [Vol rate/Area] NOT REPORTED [employer] Phone: Glucose [Mass/Vol] 98 mg/dL 70 - 99 mg/dL [employer] Phone: Interpretation and review of laboratory results Abnormal [employer] Phone: Potassium [Moles/Vol] 4.3 mmol/L 3.7 - 5.3 mmol/L [employer] Phone: Protein [Mass/Vol] 6.7 g/dL 6.4 - 8.3 g/dL [employer] Phone: Sodium [Moles/Vol] 140 mmol/L 135 - 144 mmol/L [employer] Phone: Urea nitrogen [Mass/Vol] 26 mg/dL High 8 - 23 mg/dL [employer] Phone: Lipid Panelon 08-11-2020 Cholesterol [Mass/Vol] 126 mg/dL <200 [employer] Phone: Comment on above: Cholesterol Guidelines: <200 Desirable 200-240 Borderline >240 Undesirable Cholesterol in HDL [Mass/Vol] 45 mg/dL >40 [employer] Phone: Comment on above: HDL Guidelines: <40 Undesirable 40-59 Borderline >59 Desirable Cholesterol in LDL [Mass/Vol] 62 mg/dL 0 - 130 mg/dL [employer] Phone: Comment on above: LDL Guidelines: <100 Desirable 100-129 Near to/above Desirable 130-159 Borderline >159 Undesirable Direct (measured) LDL and calculated LDL are not interchangeable tests. Cholesterol in VLDL [Mass/Vol] NOT REPORTED 1 - 30 mg/dL [employer] Phone: Cholesterol.total/Cho lesterol in HDL [Mass ratio] 2.8 {ratio} <5 [employer] Phone: Triglyceride [Mass/Vol] 94 mg/dL <150 [employer] Phone: Comment on above: Triglyceride Guidelines: <150 Desirable 150-199 Borderline 200-499 High >499 Very high Based on AHA Guidelines for fasting triglyceride, March 2012. Magnesiumon 08-11-2020 Magnesium [Mass/Vol] 2.1 mg/dL 1.6 - 2 .6 mg/dL [employer] Phone: Otheron 08-11-2020 Immature granulocytes (Bld) [#/Vol] NOT REPORTED [employer] Phone: Patient Fasting?on 1 Patient Fasting? yes [employer] Phone: TSH with Reflexon 08-11-2020 TSH Qn 2.05 m[IU]/L [employer] Phone: Vitamin D 25 Hydroxyon 08-11 Vit D, 25-Hydroxy 50.9 ng/mL 30 - 100 ng/mL [employer] Phone: Comment on above: Reference Range: Vitamin D status Range Deficiency <20 ng/mL Mild Deficiency 20-30 ng/mL Sufficiency 30-100 ng/mL Toxicity >100 ng/mL CBC Auto Differentialon 10-0 Basophils (Bld) [#/Vol] 0.00 10*3/uL [place] Basophils/100 WBC (Bld) 1 % 0 - 2 % [place] Differential Type YES [facility] [place] Eosinophils (Bld) [#/Vol] 0.10 10*3/uL [place] Eosinophils/100 WBC (Bld) 1 % 0 - 5 % [place] Erythrocyte distribution width (RBC) [Ratio] 14.2 % 12.1 - 15.2 % [place] Hematocrit (Bld) [Volume fraction] 37.4 % 36 - 46 % [place] Hemoglobin (Bld) [Mass/Vol] 12.4 g/dL 12 - 16 g/dL [place] Interpretation and review of laboratory results Abnormal [place] Lymphocytes (Bld) [#/Vol] 1.50 10*3/uL [place] Lymphocytes/100 WBC (Bld) 24 % 15 - 40 % [place] MCH (RBC) [Entitic mass] 32.1 pg 26 - 34 pg [place] MCHC (RBC) [Mass/Vol] 33.2 g/dL 31 - 3 7 g/dL [place] MCV (RBC) [Entitic vol] 96.7 fL 80 - 100 fL [place] Monocytes (Bld) [#/Vol] 0.50 10*3/uL [place] Monocytes/100 WBC (Bld) 9 % High 4 - 8 % [place] Platelet mean volume (Bld) [Entitic vol] NOT REPORTED 6 - 12 fL [place] Platelets (Bld) [#/Vol] 205 10*3/uL [place] Platelets (Bld) [#/Vol] NOT REPORTED [place] RBC (Bld) [#/Vol] 3.87 10*6/uL Low 4 - 5.2 m/uL [place] RBC morphology finding Nom (Bld) NOT REPORTED [place] Segmented neutrophils/100 WBC (Bld) 65 % 47 - 75 % [place] Segs Absolute 4.10 [employer] WBC (Bld) [#/Vol] NOT REPORTED per 100 WBC [place] WBC (Bld) [#/Vol] 6.2 10*3/uL [place] WBC Morphology NOT REPORTED [place], [place] CT Head WO Contraston 2019 CT [...] by noncontrast CT. There is intracranial atherosclerosis. [place] [employer], [employer] Incoming R adiant Results From [employer]dtMEDIA/Team-Match - 03/31/2020 4:[address] head [...] MRI would be recommended for further evaluation. [place] 1. No acute intracra nial abnormality. 2. Stable chronic small vessel ischemic disease. 3. Intracranial atherosclerosis. If the patient has a focal neurologic deficit or there is clinical suspicion for acute cerebrovascular accident, brain MRI would be recommended for further evaluation. [place] Comprehensive Metabolic Pane l w/ Reflex to MGon 03-31-2020 Albumin [Mass/Vol] 4.2 g/dL 3.5 - 5.2 g/dL [place] Albumin/Globulin [Mass ratio] NOT REPORTED [place] ALP [Catalytic activity/Vol] 75 U/L 35 - 104 U/L [place] ALT [Catalytic activity/Vol] 11 U/L 5 - 33 U/L [place] Anion gap [Moles/Vol] 8 mmol/L Low 9 - 17 mmol/L [place] AST [Catalytic activity/Vol] 17 U/L <32 [place] Bilirubin Ql (U) 0.38 mg/dL 0.3 - 1.2 mg/dL [place] Bun/Cre Ratio 21 High [employer] Calcium [Mass/Vol] 9.1 mg/dL 8.6 - 10. 4 mg/dL [place] Chloride [Moles/Vol] 98 mmol/L 98 - 10 7 mmol/L [place] CO2 [Moles/Vol] 28 mmol/L 20 - 31 mmol/L [place] Creatinine [Mass/Vol] 1.04 mg/dL High 0.5 - 0.9 mg/dL [place] GFR >60 >60 mL/min [place] GFR Non- 52 mL/min Low >60 [place] GFR/1.73 sq M predicted among non-blacks MDRD (S/P/Bld) [Vol rate/Area] [place] Comment on above: Average GFR for 70 o r more years old: 75 mL/min/1.73sq m Chronic Kidney Disease: <60 mL/min/1.73sq m Kidney failure: <15 mL/min/1.73sq m eGFR calculated using average adult body mass. Additional eGFR calculator available at: http://www.[employer]/multiple_crcl_2012.htm GFR/1.73 sq M predicted among non-blacks MDRD (S/P/Bld) [Vol rate/Area] NOT REPORTED [place] Glucose [Mass/Vol] 94 mg/dL 70 - 99 mg/dL [place] Interpretation and review of laboratory results Abnormal [place] Potassium [Moles/Vol] 4.2 mmol/L 3.7 - 5.3 mmol/L [place] Protein [Mass/Vol] 7.1 g/dL 6.4 - 8.3 g/dL [place] Sodium [Moles/Vol] 134 mmol/L Low 135 - 144 mmol/L [place] Urea nitrogen [Mass/Vol] 22 mg/dL 8 - 23 mg/dL [place] Microscopic Urinalysison Amorphous, UA NOT REPORTED None [place] Bacteria, UA NOT REPORTED None [place] Casts UA NOT REPORTED /LPF [place] Crystals, UA NOT REPORTED None /HPF [place] Epithelial Cells UA 0 TO 2 /HPF [place] Mucus, UA NOT REPORTED None [place] Other Observations UA NOT REPORTED NOT REQ. M [place] RBC (U) [#/Vol] 2 TO 5 [place] Renal Epithelial, UA NOT REPORTED 0 /HPF [place] Trichomonas, UA NOT REPORTED None [place], [place] WBC, UA 0 TO 2 0 /HPF [place] Yeast, UA NOT REPORTED None [place] Otheron 03-31-2020 Immature granulocytes (Bld) [#/Vol] NOT REPORTED 0 % [place] TSH with Reflexon 03-31-2020 TSH Qn 1.98 m[IU]/L [place] Troponinon 03-31-2020 Troponin I.cardiac [Mass/Vol] [place] Comment on above: Reference Range: <0.03 [...] diagnosis. Troponin T.cardiac [Mass/Vol] ug/L <0.03 ng/mL [place] Comment on above: Troponin T results c annot be compared to Troponin-I results. Troponin, High Sensitivity NOT REPORTED 0 - 14 ng/L [place] Urinalysis, reflex to micros copicon 03-31-2020 Bilirubin Urine Negative NEGATIVE [place] Color, UA YELLOW YELLOW [place] Glucose, Ur Negative NEGATIVE [place] Interpretation and review of laboratory results Abnormal [place] Ketones Ql (U) Negative NEGATIVE [place] Leukocyte esterase Test strip Ql (U) Negative NEGATIVE [place] Nitrite, Urine Negative NEGATIVE [place] pH, UA 7.0 [place] Protein (U) [Mass/Vol] Negative NEGATIVE [place] Specific [place], UA 1.005 [place] Turbidity UA CLEAR CLEAR [place] Urinalysis Comments [place] Urine Hgb TRACE Abnormal NEGATIVE [place] Urobilinogen, Urine Normal Normal [place] XR CHEST PORTABLEon 03-31-20 20 [facility] [place] [employer], [employer] Incoming R adiant Results From hdtMEDIA/Team-Match - 03/31/2020 2:47 PM EDT EXAM: XR CHEST PORTABLE HISTORY: Reason for exam:->gen weakness 74-year-old female COMPARISON: Chest 07/07/2019 TECHNIQUE: AP portable chest 1424 hours FINDINGS: Heart size normal. Lungs clear. Bony thorax and upper abdomen normal. IMPRESSION: Negative chest. [place] EXAM: XR CHEST STARLA BLE HISTORY: Reason for exam:->gen weakness 74-year-old female COMPARISON: Chest 07/07/2019 TECHNIQUE: AP portable chest 1424 hours FINDINGS: Heart size normal. Lungs clear. Bony thorax and upper abdomen normal. [place] CBC Auto DifferentialOrdered By: Reagan Pascal on 07-07-2019 [employer] [place] # 0.10 [facility] Work Phone: Absolute Immature Granulocyte NOT REPORTED [facility] Work Phone: Absolute Lymph # 1.20 [facility] Work Phone: Absolute [place] # 0.40 [facility] Work Phone: Basophils (Bld) [#/Vol] 0.00 10*3/uL [facility] Work Phone: Basophils/100 WBC (Bld) 0 % 0 - 2 % [facility] Work Phone: Differential Type YES [facility] Work Phone: Eosinophils/100 WBC (Bld) 2 % 0 - 5 % [facility] Work Phone: Erythrocyte distribution width (RBC) [Ratio] 14.6 % 12.1 - 15.2 % [employer] Phone: Hematocrit (Bld) [Volume fraction] 35.9 % Low 36 - 46 % [employer] Phone: Hemoglobin (Bld) [Mass/Vol] 12.2 g/dL 12 - 16 g/dL [employer] Phone: Immature Granulocytes NOT REPORTED 0 % M [employer] Work Phone: Interpretation and review of laboratory results Abnormal [employer] Phone: Lymphocytes/100 WBC (Bld) 28 % 15 - 40 % [employer] Phone: MCH (RBC) [Entitic mass] 33.2 pg 26 - 34 pg [employer] Phone: MCHC (RBC) [Mass/Vol] 34.1 g/dL 31 - 3 7 g/dL [employer] Phone: MCV (RBC) [Entitic vol] 97.3 fL 80 - 100 fL [employer] Phone: Monocytes/100 WBC (Bld) 10 % High 4 - 8 % [employer] Phone: MPV NOT REPORTED 6 - 12 fL [employer] Phone: NRBC Automated NOT REPORTED per 100 WBC [employer] Phone: Platelet Estimate NOT REPORTED [employer] Phone: Platelets (Bld) [#/Vol] 223 10*3/uL [employer] Phone: RBC (Bld) [#/Vol] 3.69 10*6/uL Low 4 - 5.2 m/uL [employer] Phone: RBC morphology finding Nom (Bld) NOT REPORTED [employer] Phone: Segmented neutrophils/100 WBC (Bld) 60 % 47 - 75 % [employer] Phone: Segs Absolute 2.60 [employer] Work Phone: WBC (Bld) [#/Vol] 4.4 10*3/uL [employer] Phone: WBC Morphology NOT REPORTED [employer] Work Phone: Comprehensive Metabolic Pane lOrdered By: Reagan Pascal on 07-07-2019 Albumin [Mass/Vol] 4.2 g/dL 3.5 - 5.2 g/dL [employer] Phone: Albumin/Globulin Ratio NOT REPORTED [employer] Phone: ALP [Catalytic activity/Vol] 66 U/L 35 - 104 U/L [employer] Phone: ALT [Catalytic activity/Vol] 9 U/L 5 - 33 U/L [employer] Phone: Anion gap [Moles/Vol] 14 mmol/L 9 - 17 mmol/L [employer] Phone: AST [Catalytic activity/Vol] 17 U/L <32 [employer] Phone: Bilirubin [Mass/Vol] 0.32 mg/dL 0.3 - 1 .2 mg/dL [employer] Phone: Bun/Cre Ratio 17 [employer] Work Phone: Calcium [Mass/Vol] 10.2 mg/dL 8.6 - 10. 4 mg/dL [employer] Phone: Chloride [Moles/Vol] 103 mmol/L 98 - 10 7 mmol/L [employer] Phone: CO2 [Moles/Vol] 24 mmol/L 20 - 31 mmol/L [employer] Phone: Creatinine [Mass/Vol] 1.26 mg/dL High 0.5 - 0.9 mg/dL [employer] Phone: GFR 50 mL/min Low >60 [employer] Phone: GFR Comment [employer] Phone: Comment on above: Average GFR for 70 o r more years old: 75 mL/min/1.73sq m Chronic Kidney Disease: <60 mL/min/1.73sq m Kidney failure: <15 mL/min/1.73sq m eGFR calculated using average adult body mass. Additional eGFR calculator available at: http://www.[employer]/multiple_crcl_2012.htm GFR Non- 42 mL/min Low >60 [employer] Phone: GFR Staging NOT REPORTED [employer] Work Phone: Glucose [Mass/Vol] 106 mg/dL High 70 - 99 mg/dL [employer] Phone: Interpretation and review of laboratory results Abnormal [employer] Phone: Potassium [Moles/Vol] 3.8 mmol/L 3.7 - 5.3 mmol/L [employer] Phone: Protein [Mass/Vol] 7.4 g/dL 6.4 - 8.3 g/dL [employer] Phone: Sodium [Moles/Vol] 141 mmol/L 135 - 144 mmol/L [employer] Phone: Urea nitrogen [Mass/Vol] 22 mg/dL 8 - 23 mg/dL [employer] Phone: Lipid PanelOrdered By: Reagan Pascal on 07-07-2019 Cholesterol [Mass/Vol] 169 mg/dL <200 [employer] Phone: Comment on above: Cholesterol Guidelines: <200 Desirable 200-240 Borderline >240 Undesirable Cholesterol in HDL [Mass/Vol] 54 mg/dL >40 [employer] Phone: Comment on above: HDL Guidelines: <40 Undesirable 40-59 Borderline >59 Desirable Cholesterol in LDL [Mass/Vol] 91 mg/dL 0 - 130 mg/dL [employer] Phone: Comment on above: LDL Guidelines: <100 Desirable 100-129 Near to/above Desirable 130-159 Borderline >159 Undesirable Direct (measured) LDL and calculated LDL are not interchangeable tests. Cholesterol.total/Cho lesterol in HDL [Mass ratio] 3.1 {ratio} <5 [employer] Phone: Triglyceride [Mass/Vol] 118 mg/dL <150 [employer] Phone: Comment on above: Triglyceride Guidelines: <150 Desirable 150-199 Borderline 200-499 High >499 Very high Based on AHA Guidelines for fasting triglyceride, March 2012. VLDL NOT REPORTED 1 - 30 mg/dL [employer] Phone: MagnesiumOrdered By: Reagan borja on 07-07-2019 Magnesium [Mass/Vol] 2.4 mg/dL 1.6 - 2 .6 mg/dL [employer] Phone: Patient Fasting?Ordered By: Reagan Pascal on 07-07-2019 Patient Fasting? yes [employer] Phone: TSH with ReflexOrdered By: Jose Carlos Pascal on 07-07-2019 TSH Qn 2.66 m[IU]/L [employer] Phone: Vitamin D 25 HydroxyOrdered By: Reagan Pascal on 07-07-2019 Vit D, 25-Hydroxy 76.8 ng/mL 30 - 100 ng/mL [employer] Phone: Comment on above: Reference Range: Vitamin D status Range Deficiency <20 ng/mL Mild Deficiency 20-30 ng/mL Sufficiency 30-100 ng/mL Toxicity >100 ng/mL XR CHEST STANDARD (2 VW)Orde red By: Reagan Pascal on 07-07-2019 Stable chest compare d to 05/30/2019. [employer] Phone: EXAM: XR CHEST (2 VW ) HISTORY: Reason for exam:->htn 73-year-old female. COMPARISON: Prior studies, most recent being a two-view chest 05/30/2019 TECHNIQUE: Two-view chest FINDINGS: Surgical clips right upper quadrant abdomen. Heart size normal. Lungs clear. Minimal degenerative change thoracic spine. [employer] Phone: [employer], [employer] Incoming R adiant Results From [employer]acs - 07/07/2019 10:15 AM EST EXAM: XR CHEST (2 VW) HISTORY: Reason for exam:->htn 73-year-old female. COMPARISON: Prior studies, most recent being a two-view chest 05/30/2019 TECHNIQUE: Two-view chest FINDINGS: Surgical clips right upper quadrant abdomen. Heart size normal. Lungs clear. Minimal degenerative change thoracic spine. IMPRESSION: Stable chest compared to 05/30/2019. [employer] Phone: Clostridium Difficile Toxin/ AntigenOrdered By: Roni Dahl on 04-23-2019 C DIFF AG + TOXIN Negative NEGATIVE [place] Comment on above: No C. difficile anti gen and Toxin Detected. Specimen Description .FECES [place] CNOVon 03-10-2018 CNOV Office Visit (SPNSMN) [facility][id number][facility] 1945 [facility] Department03/10/18 9:55 AM ANDREWS FISH SPNSMN During your visit today, we recorded the following information about you: Pulse Respiration Blood pressure Weight 69/minute 18/minute 130/77 102.1 kg Height 1.626 Jamaica Fish MD 03/10/2018 10:50 AM [facility] SURGERY OUTPATIENT CONSULTSERVICE DATE: 03/10/2018PCP: [facility] PROVIDER:Lanie Prince, [id number] [id number] requested for an opinion regarding the evaluation [...] : 10:44 AM PAGER:Referring Provider: LANIE PRINCE [[id number]]Allergies As of Date: 03/10/2018 Noted Allergy ReactionGLUTEN FLOUR 03/10/2018 8 - GI Upset 9 - ItchingLEXAPRO (ESCITALOPRAM OXALATE) 08/19/2007 9 - ItchingMORPHINE 07/04/2007SULFA (SULFONAMIDE ANTIBIOTICS) 07/04/2007Date Reviewed: 03/10/2018Reviewed by: Alanna Chang Ma - Fully AssessedReason for Visit: New Patient [172]Primary Visit Diagnosis:Degenerative scoliosis [M41.9]Order(s):XR LUMBAR LIMITED 2V AP/LAT [[id number]] Order #: [id number] FUTUREPrescriptions as of 03/10/2018 Sig: ASPIRIN 81 [...] Status:Closed by ANDREWS FISH MD on 03/10/18 [facility] 03-10-2018 Protein mass conc HNO ID: [id number] thor: Katelin Hollingsworth RtService: (none)Author Type: (none)Type: Progress NotesFiled: 03/10/2018 11:05 AMNote Text: Radiology Service Progress NotePATIENT NAME: Mary Jane SinghRN: [id number] OF SERVICE: March 10, 2018TIME: 11:04 AMPATIENT IDENTITY VERIFICATION COMPLETED USING TWO (2) METHODS: Patientconfirmed name verbally and Date of .PATIENT GENDER DATA: Female. status: : NoBreastfeeding status: NO.PATIENT RELEVANT IMPLANT DATA REVIEWED: Not ApplicableRADIOLOGY DEPARTMENT: General X-ray: Exam(s) Completed: Spine X-Ray(s):Lumbar AP / LAT / [id number] IV DATA: Not applicableSIGNED BY: Katelin Hollingsworth RtSept2017 11:04 AM Normal [facility] Protein mass conc HNO ID: [id number] thor: Andrews BarriosageService: (none)Author Type: PhysicianType: Progress NotesFiled: 03/10/2018 10:50 AMNote Text:SPINE SURGERY OUTPATIENT CONSULTSERVICE DATE: 03/10/2018PCP: Roni Motta, MDREFERRING PROVIDER:Lanie Prince, [id number] [address] [id number] requested for an opinion regarding the evaluation [...] 10, 2018 : 10:44 AM PAGER: Normal [facility] XR LUMBAR 2V AP/LATon 2017 XR [...] lordosis, grade 1 spondylolisthesis of L4 upon [id number] bodies: Normal in height. No vertebral fracture.Spine [...] STEIN MD on Mar 10 2018 11:23AM [id number] Normal [facility] Vital Signs Date Time Vital Sign Value Performing Clinician Facility 11-14-2023 22:17-0400 Diastolic blood pressure 85 mm[Hg] Jessica Farrar MD Work Phone: [facility] 11-14-2023 22:17-0400 Heart rate 60 /min Jessica Farrar MD [facility] 11-14-2023 22:17-0400 Respiratory rate 17 /min Jessica Farrar MD Work Phone: [facility] 11-14-2023 22:17-0400 SaO2% (BldA) [Mass fraction] 96 % Jessica Farrar MD Work Phone: [facility] [facility] 11-14-2023 22:17-0400 Systolic blood pressure 122 mm[Hg] Jessica Farrar MD Work Phone: [facility] 11-14-2023 18:48-0400 Body temperature 98.01 [degF] Jessica Farrar MD Work Phone: [facility] 11-14-2023 18:42-0400 Body height 162.6 cm Jessica Farrar MD Work Phone: [facility] 11-14-2023 18:42-0400 Body mass index (BMI) [Ratio] 37.08 kg/m2 Jessica Farrar MD Work Phone: [facility] [employer] 11-14-2023 18:42-0400 Body weight 97.98 kg Jessica Farrar MD Work Phone: [facility] [employer] 10-23-2023 12:23-0400 Heart rate 79 /min Lexy Tapia MD Work Phone: [facility] [employer] 10-23-2023 12:23-0400 Respiratory rate 16 /min Lexy Tapia MD Work Phone: [facility] [employer] 10-23-2023 12:23-0400 SaO2% (BldA) [Mass fraction] 97 % Lexy Tapia MD Work Phone: [facility] 10-23-2023 12:13-0400 Diastolic blood pressure 65 mm[Hg] Lexy Tapia MD Work Phone: [facility] [employer] 10-23-2023 12:13-0400 Systolic blood pressure 100 mm[Hg] Lexy Tapia MD Work Phone: [facility]ENTERGrav[facility] 10-23-2023 09:46-0400 Body height 160 cm Lexy Tapia MD Work Phone: [facility] [employer] 10-23-2023 09:46-0400 Body mass index (BMI) [Ratio] 38.09 kg/m2 Lexy aTpia MD Work Phone: [facility] [employer] 10-23-2023 09:46-0400 Body temperature 98.1 [degF] Lexy Tapia MD Work Phone: [facility] [employer] 10-23-2023 09:46-0400 Body weight 97.52 kg Lexy Tapia MD Work Phone: [facility] 09-16-2023 15:15-0400 Diastolic blood pressure 67 mm[Hg] Ricardo Sarmini [facility] 09-16-2023 15:15-0400 Heart rate 53 /min Ricardo Sarmini [facility] 09-16-2023 15:15-0400 Respiratory rate 14 /min Ricardo Sarmini [facility] 09-16-2023 15:15-0400 Systolic blood pressure 148 mm[Hg] Ricardo Sarmini [facility] 09-16-2023 15:00-0400 Diastolic blood pressure 81 mm[Hg] Ricardo Sarmini [facility] 09-16-2023 15:00-0400 Heart rate 54 /min Ricardo Sarmini [facility] 09-16-2023 15:00-0400 Systolic blood pressure 153 mm[Hg] Ricardo Sarmini [facility] 09-16-2023 14:55-0400 Diastolic blood pressure 89 mm[Hg] Ricardo Sarmini [facility] 09-16-2023 14:55-0400 Heart rate 60 /min Ricardo Sarmini [facility] 09-16-2023 14:55-0400 Respiratory rate 20 /min Ricardo Sarmini [facility] 09-16-2023 14:55-0400 SaO2% (BldA) [Mass fraction] 100 % Ricardo Sarmini [facility] 09-16-2023 14:55-0400 Systolic blood pressure 135 mm[Hg] Ricardo Sarmini [facility] 09-16-2023 14:44-0400 Body temperature 96.8 [degF] Ricardo Sarmini [facility] 09-16-2023 14:35-0400 Respiratory rate 12 /min Ricardo Sarmini [facility] 09-16-2023 14:25-0400 Respiratory rate 12 /min Ricardo Sarmini [facility] 09-16-2023 14:15-0400 Respiratory rate 12 /min Ricardo Sarmini [facility] 09-16-2023 13:14-0400 Blood Pressure Location Davion Olivares [facility] 09-16-2023 13:14-0400 Body temperature 96.8 [degF] Davion Olivares [facility] 07-01-2023 15:32-0500 Body height 160 cm Monster Mei MD Work Phone: [employer] 07-01-2023 15:32-0500 Body mass index (BMI) [Ratio] 36.49 kg/m2 Monster Mei MD Work Phone: [facility] 07-01-2023 15:32-0500 Body temperature 98.91 [degF] Monster Mei MD Work Phone: [facility] 07-01-2023 15:32-0500 Body weight 93.44 kg Monster Mei MD Work Phone: [employer] 07-01-2023 15:32-0500 Diastolic blood pressure 70 mm[Hg] Monster Mei MD Work Phone: [facility] 07-01-2023 15:32-0500 Heart rate 80 /min Monster Mei MD Work Phone: [facility] [employer] 07-01-2023 15:32-0500 Respiratory rate 20 /min Monster Mei MD Work Phone: [facility] 07-01-2023 15:32-0500 SaO2% (BldA) [Mass fraction] 97 % Monster Mei MD Work Phone: [facility] 07-01-2023 15:32-0500 Systolic blood pressure 138 mm[Hg] oMnster Mei MD Work Phone: [facility] 05-02-2023 08:55-0400 Body height 162.6 cm Grayson Hutchinson Jr., DO Work Phone: [facility] 05-02-2023 08:55-0400 Body mass index (BMI) [Ratio] 36.46 kg/m2 Grayson Hutchinson Jr. DO Work Phone: [facility] 05-02-2023 08:55-0400 Body temperature 97.7 [degF] Grayson Hutchinson Jr. DO Work Phone: [facility] 05-02-2023 08:55-0400 Body weight 96.34 kg Grayson Hutchinson Jr. DO Work Phone: [facility] 05-02-2023 08:55-0400 Diastolic blood pressure 82 mm[Hg] Grayson Hutchinson Jr. DO Work Phone: [facility] 05-02-2023 08:55-0400 Heart rate 72 /min Grayson Hutchinson Jr. DO Work Phone: [facility] 05-02-2023 08:55-0400 Systolic blood pressure 150 mm[Hg] Grayson Hutchinson Jr. DO Work Phone: [facility] 03-19-2023 08:55-0400 Diastolic blood pressure 73 mm[Hg] MD Roni Dahl Work Phone: [facility] 03-19-2023 08:55-0400 Heart rate 63 /min MD Roni Dahl Work Phone: [facility] 03-19-2023 08:55-0400 Respiratory rate 16 /min MD Roni Dahl Work Phone: [facility] 03-19-2023 08:55-0400 SaO2% (BldA) [Mass fraction] 95 % MD Roni Dahl Work Phone: [facility] 03-19-2023 08:55-0400 Systolic blood pressure 141 mm[Hg] MD Roni Dahl Work Phone: [facility] 03-19-2023 08:15-0400 Inhaled oxygen flow rate 3 L/min MD Roni Dahl Work Phone: [facility] 03-19-2023 07:19-0400 Body height 160.02 cm MD Roni Dahl Work Phone: [facility] 03-19-2023 07:19-0400 Body weight 96.61 kg MD Roni Dahl Work Phone: [facility] 03-07-2023 09:20-0400 Body height Mukul Steve Other [email or web address] [facility] [employer] Other 03-07-2023 09:20-0400 Body mass index (BMI) [Ratio] 35.99 kg/m2 Mukul Wilson Other [employer] Other 03-07-2023 09:20-0400 Body weight 96.62 kg Mukul Wilson Other [employer] Other 03-07-2023 09:20-0400 Diastolic blood pressure 80 mm[Hg] Mukul Wilson Other [employer] Other 03-07-2023 09:20-0400 Systolic blood pressure 152 mm[Hg] Mukul Wilson Other [employer] Other 03-01-2023 12:05-0400 Body height 162.56 cm MD Roni Dahl Work Phone: [facility] 03-01-2023 12:05-0400 Body temperature 98.6 [degF] MD Roni Dahl Work Phone: [facility] 03-01-2023 12:05-0400 Body weight 96.61 kg MD Roni Dahl Work Phone: [facility] 03-01-2023 12:05-0400 Diastolic blood pressure 74 mm[Hg] MD Roni Dahl Work Phone: [facility] 03-01-2023 12:05-0400 Heart rate 59 /min MD Roni Dahl Work Phone: [facility] 03-01-2023 12:05-0400 Respiratory rate 20 /min MD Roni Dahl Work Phone: [facility] 03-01-2023 12:05-0400 SaO2% (BldA) [Mass fraction] 96 % MD Roni Dahl Work Phone: [facility] 03-01-2023 12:05-0400 Systolic blood pressure 143 mm[Hg] MD Roni Dahl Work Phone: [facility] 02-28-2023 12:51-0400 Blood Pressure Location Ricardo Sarmini [facility] 02-28-2023 12:51-0400 Diastolic blood pressure 92 mm[Hg] Ricardo Sarmini [facility] 02-28-2023 12:51-0400 Heart rate 64 /min Ricardo Sarmini [facility] 02-28-2023 12:51-0400 Respiratory rate 16 /min Ricardo Sarmini [facility] 02-28-2023 12:51-0400 SaO2% (BldA) [Mass fraction] 98 % Ricardo Sarmini [facility] 02-28-2023 12:51-0400 Systolic blood pressure 135 mm[Hg] Ricardo Sarmini [facility] 02-08-2023 14:05-0400 Body temperature 98.1 [degF] Roni Dahl MD Work Phone: [facility] 02-08-2023 14:05-0400 Diastolic blood pressure 63 mm[Hg] Roni Dahl MD Work Phone: [employer] 02-08-2023 14:05-0400 Heart rate 59 /min Roni Dahl MD Work Phone: [facility] [employer] 02-08-2023 14:05-0400 Respiratory rate 13 /min Roni Dahl MD Work Phone: [facility] 02-08-2023 14:05-0400 SaO2% (BldA) [Mass fraction] 97 % Roni Dahl MD Work Phone: [facility] [employer] 02-08-2023 14:05-0400 Systolic blood pressure 143 mm[Hg] Roni Dahl MD Work Phone: [employer] 01-30-2023 15:30-0400 Body temperature 98.7 [degF] Tara Patel Other [employer] Other 01-30-2023 15:30-0400 Body weight 99.79 kg Tara Jorge Other [employer] Other 01-30-2023 15:30-0400 Diastolic blood pressure 70 mm[Hg] Tara Jorge Other [employer] Other 01-30-2023 15:30-0400 Respiratory rate 20 /min Tara Jorge Other [employer] Other 01-30-2023 15:30-0400 SaO2% (BldA) [Mass fraction] 98 % Tara Patel Other [employer] Other 01-30-2023 15:30-0400 Systolic blood pressure 122 mm[Hg] Tara Patel Other [employer] Other 11-25-2022 12:00-0400 Diastolic blood pressure 75 mm[Hg] Salomon Correa MD Work Phone: [employer] 11-25-2022 12:00-0400 SaO2% (BldA) [Mass fraction] 99 % Salomon Correa MD Work Phone: [facility] 11-25-2022 12:00-0400 Systolic blood pressure 140 mm[Hg] Salomon Correa MD Work Phone: [facility] [employer] 11-25-2022 10:30-0400 Heart rate 59 /min Salomon Correa MD Work Phone: [facility] [employer] [facility] 11-25-2022 10:30-0400 Respiratory rate 18 /min Salomon Correa MD Work Phone: [facility] 11-25-2022 10:05-0400 Body temperature 97.9 [degF] Salomon Correa MD Work Phone: [facility] 11-25-2022 10:04-0400 Body height 162.6 cm Salomon Correa MD Work Phone: [facility] 11-25-2022 10:04-0400 Body mass index (BMI) [Ratio] 38.16 kg/m2 Salomon Correa MD Work Phone: [facility] 11-25-2022 10:04-0400 Body weight 100.83 kg Salomon Correa MD Work Phone: [facility] 08-28-2022 12:58-0500 Blood Pressure Location Donna Spencer [facility] 08-28-2022 12:58-0500 Body temperature 97.34 [degF] Donna Spencre [facility] 08-28-2022 12:58-0500 Diastolic blood pressure 72 mm[Hg] Donnabaylee JangJohanna [facility] 08-28-2022 12:58-0500 Heart rate 69 /min Donnabaylee JangJohanna [facility] 08-28-2022 12:58-0500 Systolic blood pressure 114 mm[Hg] Donnabaylee JangJohanna [facility] 07-26-2022 08:55-0500 Diastolic blood pressure 69 mm[Hg] Ferrari SALAM [facility] 07-26-2022 08:55-0500 Heart rate 54 /min Ferrari SALAM [facility] 07-26-2022 08:55-0500 Mean blood pressure 84 mm[Hg] Ferrari SALAM [facility] 07-26-2022 08:55-0500 Respiratory rate 13 /min Ferrari SALAM [facility] 07-26-2022 08:55-0500 SaO2% (BldA) [Mass fraction] 97 % Ferrari SALAM [facility] 07-26-2022 08:55-0500 Systolic blood pressure 114 mm[Hg] Ferrari SALAM [facility] 07-26-2022 08:35-0500 Diastolic blood pressure 71 mm[Hg] Ferrari SALAM [facility] 07-26-2022 08:35-0500 Heart rate 55 /min Ferrari SALAM [facility] 07-26-2022 08:35-0500 Mean blood pressure 84 mm[Hg] Ferrari SALAM [facility] 07-26-2022 08:35-0500 Respiratory rate 17 /min Ferrari SALAM [facility] 07-26-2022 08:35-0500 SaO2% (BldA) [Mass fraction] 100 % Ferrari SALAM [facility] 07-26-2022 08:35-0500 Systolic blood pressure 111 mm[Hg] Ferrari SALAM [facility] 07-26-2022 08:30-0500 Diastolic blood pressure 72 mm[Hg] Frerari SALAM [facility] 07-26-2022 08:30-0500 Heart rate 71 /min Ferrari SALAM [facility] 07-26-2022 08:30-0500 Mean blood pressure 92 mm[Hg] Ferrari SALAM [facility] 07-26-2022 08:30-0500 Respiratory rate 21 /min Ferrari SALAM [facility] 07-26-2022 08:30-0500 SaO2% (BldA) [Mass fraction] 99 % Ferrari SALAM [facility] 07-26-2022 08:30-0500 Systolic blood pressure 131 mm[Hg] Ferrari SALAM [facility] 07-26-2022 08:20-0500 Body temperature 97.7 [degF] Ferrari SALAM [facility] 07-26-2022 07:14-0500 Blood Pressure Location Ferrari SALAM [facility] 07-26-2022 07:14-0500 Body temperature 97.16 [degF] Ferrari SALAM [facility] 07-17-2022 09:53-0500 Diastolic blood pressure 60 mm[Hg] MD Roni Dahl Work Phone: [facility] 07-17-2022 09:53-0500 Heart rate 60 /min MD Roni Dahl Work Phone: [facility] 07-17-2022 09:53-0500 Respiratory rate 16 /min MD Roni Dahl Work Phone: [facility] 07-17-2022 09:53-0500 SaO2% (BldA) [Mass fraction] 97 % MD Roni Dahl Work Phone: [facility] 07-17-2022 09:53-0500 Systolic blood pressure 120 mm[Hg] MD Roni Dahl Work Phone: [facility] 07-17-2022 09:06-0500 Inhaled oxygen flow rate 3 L/min MD Roni Dahl Work Phone: [facility] 07-17-2022 08:22-0500 Body height 162.56 cm MD Roni Dahl Work Phone: [facility] 07-17-2022 08:22-0500 Body weight 99.79 kg MD Roni Dahl Work Phone: [facility] 07-12-2022 09:28-0500 Body temperature 97.7 [degF] Alma Mao DO Work Phone: [employer] 07-12-2022 09:21-0500 Body height 162.6 cm Alma Mao DO Work Phone: [employer] 07-12-2022 09:21-0500 Body mass index (BMI) [Ratio] 37.93 kg/m2 Alma Mao DO Work Phone: [employer] 07-12-2022 09:21-0500 Body weight 100.25 kg Alma Mao DO Work Phone: [employer] 07-12-2022 09:21-0500 Diastolic blood pressure 71 mm[Hg] Alma Mao DO Work Phone: [employer] 07-12-2022 09:21-0500 Heart rate 72 /min Alma Mao DO Work Phone: [employer] 07-12-2022 09:21-0500 Respiratory rate 18 /min Alma Mao DO Work Phone: [employer] 07-12-2022 09:21-0500 SaO2% (BldA) [Mass fraction] 98 % Alma Mao DO Work Phone: [employer] 07-12-2022 09:21-0500 Systolic blood pressure 128 mm[Hg] Alma Mao DO Work Phone: [employer] 07-10-2022 14:16-0500 Blood Pressure Location Donna Spencer [facility] 07-10-2022 14:16-0500 Body temperature 96.8 [degF] Donna Spencer [facility] 07-10-2022 14:16-0500 Diastolic blood pressure 80 mm[Hg] Donna Jangmetz [facility] 07-10-2022 14:16-0500 Heart rate 64 /min Donna Jangmetz [facility] 07-10-2022 14:16-0500 Systolic blood pressure 119 mm[Hg] Donna Jangmetz [facility] 07-03-2022 11:10-0500 Diastolic blood pressure 73 mm[Hg] MD Roni Dahl Work Phone: [facility] 07-03-2022 11:10-0500 Heart rate 56 /min MD Roni Dahl Work Phone: [facility] 07-03-2022 11:10-0500 Respiratory rate 20 /min MD Roni Dahl Work Phone: [facility] 07-03-2022 11:10-0500 SaO2% (BldA) [Mass fraction] 97 % MD Roni Dhal Work Phone: [facility] 07-03-2022 11:10-0500 Systolic blood pressure 136 mm[Hg] MD Roni Dahl Work Phone: [facility] 07-03-2022 10:28-0500 Inhaled oxygen flow rate 3 L/min MD Roni Dahl Work Phone: [facility] 07-03-2022 09:32-0500 Body height 162.56 cm MD Roni Dahl Work Phone: [facility] 07-03-2022 09:32-0500 Body weight 99.79 kg MD Roni Dahl Work Phone: [facility] 05-29-2022 10:13-0500 Diastolic blood pressure 72 mm[Hg] MD Roni Dahl Work Phone: [facility] 05-29-2022 10:13-0500 Heart rate 62 /min MD Roni Dahl Work Phone: [facility] 05-29-2022 10:13-0500 Respiratory rate 20 /min MD Roni Dahl Work Phone: [facility] 05-29-2022 10:13-0500 SaO2% (BldA) [Mass fraction] 97 % MD Roni Dahl Work Phone: [facility] 05-29-2022 10:13-0500 Systolic blood pressure 139 mm[Hg] MD Roni Dahl Work Phone: [facility] 05-29-2022 09:23-0500 Inhaled oxygen flow rate 3 L/min MD Roni Dahl Work Phone: [facility] 05-29-2022 08:38-0500 Body height 162.56 cm MD Roni Dahl Work Phone: [facility] 05-29-2022 08:38-0500 Body weight 100.24 kg MD Roni Dahl Work Phone: [facility] 04-09-2022 11:15-0400 Body weight 101.15 kg Yanelis Garcia Other [facility] [employer] Other 03-27-2022 09:14-0400 Diastolic blood pressure 62 mm[Hg] MD Roni Dahl Work Phone: [facility] 03-27-2022 09:14-0400 Heart rate 57 /min MD Roni Dahl Work Phone: [facility] 03-27-2022 09:14-0400 Respiratory rate 16 /min MD Roni Dahl Work Phone: [facility] 03-27-2022 09:14-0400 SaO2% (BldA) [Mass fraction] 96 % MD Roni Dahl Work Phone: [facility] 03-27-2022 09:14-0400 Systolic blood pressure 121 mm[Hg] MD Roni Dahl Work Phone: [facility] 03-27-2022 08:36-0400 Inhaled oxygen flow rate 3 L/min MD Roni Dahl Work Phone: [facility] 03-27-2022 07:55-0400 Body height 165.1 cm MD Roni Dahl Work Phone: [facility] 03-27-2022 07:55-0400 Body weight 100.24 kg MD Roni Dahl Work Phone: [facility] 10-14-2021 11:07-0400 Body mass index (BMI) [Ratio] 38.77 kg/m2 Lexy Tapia MD Work Phone: [employer] 10-14-2021 11:07-0400 Body temperature 98.2 [degF] Lexy Tapia MD Work Phone: [employer] 10-14-2021 11:07-0400 Body weight 105.69 kg Lexy Tapia MD Work Phone: [employer] 10-14-2021 11:07-0400 Diastolic blood pressure 73 mm[Hg] Lexy Tapia MD Work Phone: [employer] 10-14-2021 11:07-0400 Heart rate 67 /min Lexy Tapia MD Work Phone: [employer] 10-14-2021 11:07-0400 Respiratory rate 16 /min Lexy Tapia MD Work Phone: [employer] 10-14-2021 11:07-0400 SaO2% (BldA) [Mass fraction] 98 % Lexy Tapia MD Work Phone: [employer] 10-14-2021 11:07-0400 Systolic blood pressure 147 mm[Hg] Lexy Tapia MD Work Phone: [employer] 11-27-2020 14:00-0400 Respiratory rate 18 /min Darryl Sandoval MD Work Phone: [employer] Work Phone: 11-27-2020 09:32-0400 SaO2% (BldA) [Mass fraction] 96 % Darryl Sandoval MD Work Phone: [employer] Work Phone: 11-27-2020 09:31-0400 Body temperature 98.1 [degF] Darryl Sandoval MD Work Phone: [employer] Work Phone: 11-27-2020 09:31-0400 Diastolic blood pressure 78 mm[Hg] Darryl Sandoval MD Work Phone: [employer] Work Phone: 11-27-2020 09:31-0400 Heart rate 78 /min Darryl Sandoval MD Work Phone: [employer] Work Phone: 11-27-2020 09:31-0400 Systolic blood pressure 139 mm[Hg] Darryl Sandoval MD Work Phone: [employer] Work Phone: 11-18-2020 09:19-0400 Diastolic blood pressure 57 mm[Hg] Naida Grissom MD Work Phone: [employer] Work Phone: 11-18-2020 09:19-0400 SaO2% (BldA) [Mass fraction] 96 % Naida Grissom MD Work Phone: [employer] Work Phone: 11-18-2020 09:19-0400 Systolic blood pressure 118 mm[Hg] Naida Grissom MD Work Phone: [employer] Work Phone: 11-18-2020 06:45-0400 Body height 165.1 cm Naida Grissom MD Work Phone: [employer] Work Phone: 11-18-2020 06:45-0400 Body mass index (BMI) [Ratio] 37.11 kg/m2 Naida Grissom MD Work Phone: [employer] Work Phone: 11-18-2020 06:45-0400 Body temperature 99.19 [degF] Naida Grissom MD Work Phone: [employer] Work Phone: 11-18-2020 06:45-0400 Body weight 101.15 kg Naida Grissom MD Work Phone: [employer] Work Phone: 11-18-2020 06:45-0400 Heart rate 87 /min Naida Grissom MD Work Phone: [facility] Work Phone: 11-18-2020 06:45-0400 Respiratory rate 18 /min Naida Grissom MD Work Phone: [facility] Work Phone: 03-31-2020 13:48-0400 BMI (Body Mass Index) 38.79 kg/m2 [facility] [place] 03-31-2020 13:48-0400 Body Temperature 98.49 [degF] [facility] [place] 03-31-2020 13:48-0400 Body weight 102.51 kg [facility] 03-31-2020 13:48-0400 BP Diastolic 99 mm[Hg] [facility] 03-31-2020 13:48-0400 BP Systolic 130 mm[Hg] [facility] 03-31-2020 13:48-0400 Height 162.6 cm [facility] 03-31-2020 13:48-0400 Pulse (Heart Rate) 61 /min [facility] 03-31-2020 13:48-0400 Pulse Oximetry 100 % [facility] 03-31-2020 13:48-0400 Respiratory Rate 18 /min [facility] 05-30-2019 06:47-0500 Pulse Oximetry 100 % [facility] 05-30-2019 06:34-0500 BP Diastolic 44 mm[Hg] [facility] 05-30-2019 06:34-0500 BP Systolic 128 mm[Hg] [facility] 05-30-2019 06:00-0500 BMI (Body Mass Index) 39.86 kg/m2 [facility] 05-30-2019 06:00-0500 Body Temperature 98.8 [degF] [facility] 05-30-2019 06:00-0500 Body [facility] [place] [facility] 06:00-0500 Height 160 [facility] [place] 05-30-2019 06:00-0500 Pulse (Heart Rate) 83 /min [facility] 05-30-2019 06:00-0500 Respiratory Rate 20 /min [facility] Encounters Encounter Date Encounter Type Care Provider Facility Start: 04-06-2024 End: 04-06-2024 ambulatory Trevon Harris MD Facility:[facility] Start: 03-23-2024 End: 03-23-2024 ambulatory Trevon Harris MD Facility:[facility] Start: 02-17-2024 End: 02-17-2024 ambulatory Trevon Harris MD Facility:[facility] Start: 02-06-2024 End: 02-06-2024 Patient encounter procedure MD Roni Dahl Work Phone: [facility] Work Phone: Start: 02-06-2024 End: 02-06-2024 ambulatory MD Roni Dahl Work Phone: [facility] Work Phone: Start: 02-03-2024 End: 02-03-2024 ambulatory Trevon Harris MD Facility:[facility] Start: 12-19-2023 End: 12-19-2023 Patient encounter procedure MD Roni Dahl Work Phone: [facility] [address] Work Phone: Start: 12-19-2023 End: 12-19-2023 ambulatory MD Roni Dahl Work Phone: [facility] Work Phone: Start: 12-12-2023 End: 12-12-2023 [facility] Start: 11-14-2023 End: 11-14-2023 Emergency department patient visit Jessica Farrar MD Work Phone: [facility] Comment on above: Paroxysmal atrial fi brillation (HCC) (Primary Dx) Start: 10-23-2023 End: 10-25-2023 ambulatory RONI DAHL [facility] Start: 10-23-2023 End: 10-23-2023 Emergency department patient visit Lexy Tapia MD Work Phone: [facility] Comment on above: New onset atrial fib rillation (HCC) (Primary Dx); Atrial fibrillation with RVR (HCC); History of chronic kidney disease; Symptoms of dehydration; Fluid level behind tympanic membrane of both ears; Acute pansinusitis, recurrence not specified; Nausea vomiting and diarrhea Start: 10-22-2023 End: 10-24-2023 ambulatory RONI DAHL [facility] Start: 10-01-2023 End: 10-01-2023 ambulatory RONI DAHL [facility] Start: 09-30-2023 End: 09-30-2023 ambulatory Trevon Harris MD Facility:[facility] Start: 09-19-2023 End: 09-19-2023 Patient encounter procedure MD Roni Dahl Work Phone: [facility] [address] Work Phone: Start: 09-19-2023 End: 09-19-2023 ambulatory MD Roni Dahl Work Phone: [facility] Work Phone: Start: 09-16-2023 End: 09-16-2023 ambulatory Davion Olivares Facility:[facility] Start: 09-16-2023 End: 09-16-2023 Patient encounter procedure Davion Olivares [facility] Start: 09-09-2023 End: 09-09-2023 ambulatory Trevon Harris MD Facility:[facility] Start: 08-26-2023 End: 08-26-2023 ambulatory Roni Dahl MD Facility:[facility] Start: 08-20-2023 End: 08-22-2023 ambulatory [facility] Start: 07-01-2023 End: 07-01-2023 Emergency department patient visit Monster Mei MD Work Phone: [facility] ED Comment on above: COVID-19 virus infec tion (Primary Dx) Start: 05-28-2023 End: 05-28-2023 ambulatory RONI Oz FERRARAJOLENE [facility] Start: 05-27-2023 End: 05-27-2023 Patient encounter procedure MD Roni Dahl Work Phone: [facility] [address] Work Phone: Start: 05-27-2023 End: 05-27-2023 ambulatory MD Roni Dahl Work Phone: [facility] Work Phone: Start: 05-22-2023 End: 05-22-2023 ambulatory [facility]ONIKYLE [facility] Start: 05-20-2023 End: 05-20-2023 ambulatory [facility] Start: 05-16-2023 End: 05-16-2023 [facility] Start: 05-13-2023 End: 05-13-2023 ambulatory [facility]HL [facility] Start: 05-09-2023 End: 05-11-2023 ambulatory [facility] Start: 05-09-2023 End: 05-09-2023 ambulatory [facility]HL [facility] Start: 05-07-2023 End: 05-07-2023 ambulatory [facility] DAHL [facility] Start: 05-02-2023 End: 05-06-2023 ambulatory MARYLAKISHA SUE [facility] Ambulatory Start: 05-02-2023 End: 05-02-2023 Clinical Support Mary [facility] Work Phone: [facility] Comment on above: Sensorineural hearin g loss, bilateral (Primary Dx); Hearing loss, unspecified hearing loss type, unspecified laterality Start: 05-02-2023 End: 05-02-2023 Office outpatient new 45 minutes Grayson Yury Hutchinson DO Work Phone: [facility] Comment on above: Bruxism (teeth grind ing) (Primary Dx); Acute suppurative otitis media of left ear without spontaneous rupture of tympanic membrane, recurrence not specified; ROSETTE on CPAP; Hearing loss, unspecified hearing loss type, unspecified laterality Start: 05-01-2023 End: 05-01-2023 ambulatory RONI DAHL [facility] Start: 04-29-2023 End: 04-29-2023 [facility] Start: 04-13-2023 End: 04-13-2023 Emergency department patient visit [facility] Start: 04-11-2023 End: 04-11-2023 ambulatory XU MARTINEZ [facility] Start: 03-28-2023 End: 03-28-2023 ambulatory LANIE PRINCE [facility] Start: 03-19-2023 End: 03-19-2023 Admission to same day surgery center MD Roni Dahl Work Phone: [facility] Work Phone: Start: 03-19-2023 End: 03-19-2023 ambulatory MD Roni Dahl Work Phone: [facility] Work Phone: Start: 03-14-2023 End: 03-14-2023 ambulatory Yanelis Garcia Other [employer] Other Start: 03-14-2023 Office outpatient vi sit 25 minutes Yanelis Garcia [facility] [place] [employer] [place] Start: 03-14-2023 Telephone encounter Yanelis Garcia [facility] Start: 03-13-2023 End: 03-16-2023 ambulatory YANELIS GUZMAN [facility] Start: 03-13-2023 End: 03-15-2023 Subsequent hospital visit by physician Yanelis Guzman MD Work Phone: [facility] Ultrasound Comment on above: Renal cyst Start: 03-08-2023 End: 03-08-2023 ambulatory Mukul Wilson Other [email or web address] [facility] [employer] Other Start: 03-08-2023 Telephone encounter Mukul Wilson [employer] Start: 03-07-2023 Office outpatient ne w 30 minutes Mukul Wilson [facility] Neurosurgery Start: 03-07-2023 End: 03-07-2023 Patient encounter procedure MD Roni Dahl Work Phone: [facility]XRay [facility] Work Phone: Start: 03-07-2023 End: 03-07-2023 ambulatory MD Roni Dahl Work Phone: [facility] Work Phone: Start: 03-01-2023 End: 03-01-2023 Emergency department patient visit MD Roni Dahl Work Phone: [facility]-Emergency Room Work Phone: Start: 02-28-2023 End: 02-28-2023 ambulatory Ricardo Talal Sarmini Facility:[facility] Start: 02-28-2023 End: 02-28-2023 Patient encounter procedure Ricardo Talal Sarmini [facility] Start: 02-27-2023 End: 03-01-2023 Subsequent hospital visit by physician Roni Dahl MD Work Phone: [facility] Radiology Start: 02-27-2023 End: 03-01-2023 ambulatory [facility] Start: 02-25-2023 End: 02-25-2023 ambulatory Yanelis Garcia Other [employer] Other Start: 02-25-2023 Telephone encounter Yanelis [facility] Start: 02-21-2023 End: 02-21-2023 Patient encounter procedure MD Roni Dahl Work Phone: [facility]MRI [facility] [place] Work Phone: Start: 02-21-2023 End: 02-21-2023 ambulatory MD Roni Dahl Work Phone: [facility] Work Phone: Start: 02-14-2023 End: 02-14-2023 ambulatory Yanelis Garcia Other [employer] Other Start: 02-14-2023 Telephone encounter Yanelis [facility] [place] [employer] [place] Start: 02-08-2023 Emergency department patient visit [facility] Start: 02-08-2023 End: 02-08-2023 Emergency department patient visit Roni Dahl MD Work Phone: [facility] ED Comment on above: 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, unspecified back pain laterality (Primary Dx) Start: 02-04-2023 End: 02-04-2023 ambulatory Yanelis Garcia Other [employer] Other Start: 02-04-2023 Telephone encounter Yanelis [facility] Start: 01-30-2023 End: 01-30-2023 ambulatory Tara Patel Other [employer] Other Start: 01-30-2023 Office outpatient vi sit 25 minutes Tara Patel [facility] [address] Start: 12-11-2022 End: 12-12-2022 ambulatory YANELIS GUZMAN [facility] Start: 11-25-2022 End: 11-25-2022 Emergency department patient visit Salomon Correa MD Work Phone: [facility] ED Comment on above: Non-recurrent acute suppurative otitis media of left ear without spontaneous rupture of tympanic membrane (Primary Dx); Acute nonintractable headache, unspecified headache type Start: 08-29-2022 End: 08-31-2022 Subsequent hospital visit by physician [facility] Additional Xray At [facility] Comment on above: Essential hypertensi on; Palpitations; Hypothyroidism, unspecified type; Hyperlipidemia, unspecified hyperlipidemia type; Vitamin D deficiency disease Start: 08-28-2022 End: 08-28-2022 Patient encounter procedure Donna Spencer [facility] Start: 08-21-2022 End: 08-21-2022 ambulatory MD Roni Dahl Work Phone: [facility] Work Phone: Start: 08-21-2022 End: 08-21-2022 Patient encounter procedure MD Roni Dahl Work Phone: [facility] [address] Work Phone: Start: 07-31-2022 Office outpatient vi sit 15 minutes Yanelis P[facility] [place] [employer] [place] Start: 07-31-2022 End: 08-01-2022 ambulatory [employer] Other Start: 07-31-2022 End: 08-01-2022 Encounter for other specified special examinations [facility] Start: 07-31-2022 End: 07-31-2022 Subsequent hospital visit by physician Maria R Malhotra PT [facility] Comment on above: Arrived Start: 07-26-2022 End: 07-26-2022 Patient encounter procedure Vonda HERNANDEZ [facility] Start: 07-17-2022 (Procedure) Bj Garcia [facility] Medical OutPt Start: 07-17-2022 End: 07-17-2022 Admission to same day surgery center MD Roni Dahl Work Phone: [facility] Work Phone: Start: 07-17-2022 End: 07-17-2022 ambulatory MD Roni Dahl Work Phone: [facility] Work Phone: Start: 07-12-2022 End: 07-12-2022 Emergency department patient visit Alma Mao DO Work Phone: [facility] ED Comment on above: Acute pharyngitis, u nspecified etiology (Primary Dx) Start: 07-10-2022 End: 07-10-2022 Patient encounter procedure Donna Spencer [facility] Start: 07-03-2022 (Procedure) Bj Garcia [facility] Out[facility] Start: 07-03-2022 End: 07-03-2022 Admission to same day surgery center MD Roni Dahl Work Phone: [facility] Work Phone: Start: 07-03-2022 End: 07-03-2022 ambulatory MD Roni Dahl Work Phone: [facility] Work Phone: Start: 06-26-2022 End: 06-26-2022 Patient encounter procedure Donna Spencer [facility] Start: 06-14-2022 End: 06-15-2022 ambulatory VINNIE GARAY [facility] Start: 06-14-2022 End: 06-14-2022 Subsequent hospital visit by physician Maria R [facility]hotra [facility] Comment on above: Arrived Start: 06-13-2022 End: 06-13-2022 ambulatory Yanelis Garcia Other [employer] Other Start: 06-13-2022 Office outpatient vi sit 25 minutes Yanelis Rolonjuli [facility] [employer] [place] [employer] [place] Start: 05-29-2022 (Procedure) Short Yanelis Rolonjuli [facility] Out[facility] Start: 05-29-2022 End: 05-29-2022 Admission to same day surgery center MD Roni Dahl Work Phone: [facility] Start: 05-29-2022 End: 05-29-2022 ambulatory MD Roni Dahl Work Phone: [facility] Work Phone: Start: 05-22-2022 End: 05-23-2022 ambulatory [facility]INNIE GARAY [facility] Start: 05-16-2022 End: 05-17-2022 ambulatory [facility]I [facility]HL [facility] Start: 05-07-2022 End: 05-07-2022 ambulatory MD Roni Dahl Work Phone: [facility] Work Phone: Start: 05-07-2022 End: 05-07-2022 Patient encounter procedure MD Roni Dahl Work Phone: [facility] [address] Start: 05-02-2022 End: 05-02-2022 ambulatory Yanelis Garcia Other [employer] Other Start: 05-02-2022 Office outpatient vi sit 25 minutes Yanelis Garcia [facility] [employer] [place] [place] Start: 04-09-2022 End: 04-09-2022 ambulatory Yanelis Garcia Other [employer] Other Start: 04-09-2022 Office outpatient vi sit 25 minutes Yanelis Garcia [facility] [place] [employer] [place] Start: 03-27-2022 End: 03-27-2022 Admission to same day surgery center MD Roni Dahl Work Phone: [facility] Start: 03-14-2022 End: 03-14-2022 Patient encounter procedure MD Roni Dahl Work Phone: [facility] Start: 02-22-2022 End: 02-22-2022 Patient encounter procedure MD Roni Dahl Work Phone: [facility] [address] Start: 01-31-2022 End: 02-02-2022 Subsequent hospital visit by physician Rei Mammography Room [facility] Mammography Comment on above: Visit for screening mammogram Start: 12-07-2021 End: 12-07-2021 Patient encounter procedure MD Roni Dahl Work Phone: [facility] Start: 11-30-2021 End: 12-02-2021 Subsequent hospital visit by physician Rei Dig Rad 1 [facility] Radiology Comment on above: H/O repair of right rotator cuff Start: 11-30-2021 End: 12-02-2021 Subsequent hospital visit by physician Roni Dahl MD Work Phone: [facility] Radiology Start: 10-30-2021 End: 10-30-2021 Patient encounter procedure Donna Spencer [facility] Start: 10-26-2021 End: 10-26-2021 Patient encounter procedure Roni Dahl MD Work Phone: [facility] Start: 10-26-2021 End: 10-26-2021 Subsequent hospital visit by physician Roni Dahl MD Work Phone: [facility] Comment on above: Women's annual routi ne gynecological examination; Vaginal burning Start: 10-14-2021 End: 10-14-2021 Emergency department patient visit Lexy Tapia MD Work Phone: [facility] ED Comment on above: Acute cystitis with hematuria (Primary Dx); Vaginal yeast infection Start: 10-11-2021 End: 10-11-2021 Subsequent hospital visit by physician Zo Cehn PT Work Phone: [facility] Comment on above: Arrived Start: 10-04-2021 End: 10-04-2021 Subsequent hospital visit by physician Zo Chen PT Work Phone: [facility] Comment on above: Arrived Start: 09-28-2021 End: 09-28-2021 Subsequent hospital visit by physician Velasquez Martel PTA [facility] Comment on above: Arrived Start: 09-25-2021 End: 09-25-2021 Subsequent hospital visit by physician Nancy Nnuez [facility] Start: 09-21-2021 End: 09-21-2021 [...] visit by physician Rei Additional Xray At [facility] Comment on above: History of arthrosco py of right shoulder Start: 06-14-2021 End: 06-14-2021 Subsequent hospital visit by physician Velasquez Martel PTA [facility] Comment on above: Arrived Start: 06-12-2021 End: 06-12-2021 Subsequent hospital visit by physician Rashmi Garcia [facility] Physical Therapy Start: 06-12-2021 End: 06-12-2021 Subsequent [...] Subsequent hospital visit by physician Rashmi Garcia [facility] Physical Therapy Comment on above: Arrived Start: 04-27-2021 End: 04-29-2021 Subsequent hospital visit by physician Rei Dig Rad 1 [facility] Radiology Comment on above: Right shoulder pain, unspecified chronicity Start: 04-27-2021 End: 04-29-2021 Subsequent hospital visit by physician Roni Dahl MD Work Phone: [facility] Radiology Start: 01-20-2021 End: 01-22-2021 Subsequent hospital visit by physician Rei Mammography Room [facility] Mammography Comment on above: Screening mammogram, encounter for Start: 01-09-2021 End: 01-09-2021 Subsequent hospital visit by physician Roni Dahl MD Work Phone: [facility] Comment on above: Low hemoglobin Start: 12-09-2020 End: 12-09-2020 Subsequent hospital visit by physician Roni Dahl MD Work Phone: [facility] Comment on above: Low hemoglobin Start: 11-27-2020 End: 11-27-2020 Emergency department patient visit Darryl Sandoval MD Work Phone: [facility] ED Comment on above: Diarrhea, unspecifie d type (Primary Dx); General weakness; Urinary incontinence, unspecified type Start: 11-22-2020 End: 11-22-2020 Subsequent hospital visit by physician Roni Dahl MD Work Phone: [facility] Laboratory Comment on above: Diarrhea of presumed infectious origin; Intractable vomiting with nausea, unspecified vomiting type Start: 11-18-2020 End: 11-18-2020 Emergency department patient visit Naida Grissom MD Work Phone: [facility] ED Comment on above: Nausea vomiting and diarrhea (Primary Dx) Start: 08-11-2020 End: 08-11-2020 Subsequent hospital visit by physician Roni Dahl [facility] Laboratory Comment on above: Essential hypertensi on; Palpitations; Hypothyroidism, unspecified type; Hyperlipidemia, unspecified hyperlipidemia type; Vitamin D deficiency disease Start: 08-09-2020 End: 08-09-2020 Subsequent hospital visit by physician Roni Dahl [facility] RESPIRATORY THERAPY Comment on above: Essential hypertensi on; Palpitations; Hypothyroidism, unspecified type Start: 06-29-2020 End: 06-29-2020 Subsequent hospital visit by physician [facility] Covid Screening Schedule [facility] Covid Screening Comment on above: Acute recurrent pans inusitis; Fever, unspecified fever cause Start: 03-31-2020 End: 03-31-2020 Subsequent hospital visit by physician Roni Dahl [facility] Laboratory Comment on above: Viral illness; Exposure to COVID-19 virus Start: 03-31-2020 End: 03-31-2020 Emergency department patient visit Lexy Tapia Work Phone: [facility] ED Comment on above: General weakness (Pr imary Dx); YANNA (middle ear effusion), bilateral Start: 11-09-2019 End: 11-11-2019 Subsequent hospital visit by physician [facility] Mammography Room [facility] Mammography Comment on above: Visit for screening mammogram Start: 07-07-2019 End: 07-09-2019 Subsequent hospital visit by physician Roni Dahl MD Work Phone: [facility] RESPIRATORY THERAPY Comment on above: Essential hypertensi on; Pure hypercholesterolemia; Acquired hypothyroidism; Palpitations; Vitamin D deficiency disease Start: 05-30-2019 End: 05-30-2019 Emergency department patient visit Lexy Tapia Work Phone: [facility] ED Comment on above: Acute recurrent fron venkat sinusitis (Primary Dx); Acute middle ear effusion, bilateral Start: 04-23-2019 End: 04-23-2019 Subsequent hospital visit by physician Roni Dahl MD Work Phone: [facility] Comment on above: Diarrhea of presumed infectious origin Start: 03-10-2018 End: 03-10-2018 Patient encounter ANDREWS FISH [facility] Start: 03-10-2018 End: 03-11-2018 Patient encounter ANDREWS FISH [facility] Start: 06-20-2017 End: 06-21-2017 Ambulatory JAMISON OWENS Facility[facility] Procedures Date Procedure Procedure Detail Performing Clinician [...] Radex shoulder complete minimum 2 views Angelito Burrowsrodriguez Meyer DO Work Phone: Start: 07-28-2021 Repair [...] 05-30-2019 Radiologic exam chest 2 views Marvin Tapia Work Phone: Start: 04-23-2019 Toxin/antitoxin assay tissue culture Roni Dahl MD Work Phone: Start: 03-24-2019 Cystourethroscopy with dilation of urethral stricture [employer] Start: 12-12-2015 Epidural injection of lumbar spine using fluoroscopic guidance [employer] Comment on above: L5-S1 60 % immediate relief still contin ues Start: 11-17-2014 Radiofrequency ablation of nerve root of lumbar spine using fluoroscopic guidance [employer] Comment on above: LEFT L2-S1 11/17/14 Rt RFA 70% r elief Start: 11-03-2014 Radiofrequency ablation of nerve root of lumbar spine using fluoroscopic guidance [employer] Comment on above: RIGHT L2-S1 Start: 10-20-2014 Injection of facet joint using fluoroscopic guidance [employer] Comment on above: BILATERAL L3-S1 LUMBAR FACET Start: 08-11-2014 Local anesthetic facet joint nerve block [employer] Comment on above: Bilateral L3-S1 Start: 03-19-2014 Injection of sacroiliac joint using fluoroscopic guidance [employer] Comment on above: Bilateral SIJI Start: 03-23-2013 Injection of sacroiliac joint using fluoroscopic guidance [employer] Comment on above: Bilateral SIJI Start: 11-17-2012 Injection of sacroiliac joint using fluoroscopic guidance [employer] Comment on above: Left SIJI Start: 10-13-2012 Injection of sacroiliac joint using fluoroscopic guidance [employer] Comment on above: Right SIJI Start: 04-30-2012 Endoscopic examination of esophagus, stomach and duodenum [employer] Start: 11-16-2011 Epidural injection of lumbar spine using fluoroscopic guidance Donna Spencer Comment on above: Left L5-S1 Start: 10-05-2011 Epidural injection of lumbar spine using fluoroscopic guidance Donna Spencer Comment on above: Left L5-S1 Start: 08-27-2011 Cystourethroscopy with dilation of urethral stricture Donna Spencer Start: 09-29-2010 Catheterization of right heart Donna Neely nmantoinette Basal cell carcinoma of forehead (disorder) Donna Spencer Decompression of median nerve Donna Spencer Comment on above: RIGHT IN 2002, LEFT 2005 Extraction of cataract Donna Spencer Gastric polypectomy Donna Paintermetz History of repair of musculotendinous cuff of shoulder H/O repair of right rotator cuff [facility] 1 Repair of ankle Donna Hogue [...] cancer screen colonoscopy Colon cancer screen colonoscopy [place], [place] Start: 01-18-2026 Screening for malignant neoplasm of colon Colon cancer screen colonoscopy [facility] Start: 11-17-2024 End: 11-17-2024 Patient encounter procedure 11/17/2024 10:00 AM EDT Office Visit [facility] [address] [place] [address] John Paul Mayfield, BOILER WATER TESTER - INTERIM CONTROLLER [address] [place] [address] [address] [place] [id number] 1 year f/u, [place] prior-(make sure we have results, patient will be going out of town) [facility] Comment on above: 1 year f/u, [place] prior-(make sure we have results, patient will be going out of town) Start: 08-31-2024 End: 08-31-2024 Patient encounter procedure 08/31/2024 9:00 AM EST Office Visit [facility] [employer] [address] [place] [id number] Reagan Pascal MD [address] [place] [address] 1 year follow up labs ekg cxr [facility] [employer] Comment on above: 1 year follow up labs ekg cxr Start: 08-20-2024 Lipid panel Lipids [facility] Start: 08-06-2024 Depression Monitoring Depression Monitoring [facility] Start: 05-07-2024 End: 05-07-2024 Patient encounter procedure 05/07/2024 9:30 AM EST Office Visit [facility] [address] [place] [id number] Grayson Hutchinson Jr., DO [address] [place] [address] [facility] Start: 05-06-2024 Annual Wellness Visit (Medicare) Annual Wellness Visit (Medicare) [facility] Start: 05-06-2024 Depression Monitoring Depression Monitoring [facility] Start: 03-23-2024 End: 03-23-2024 Patient encounter procedure 03/23/2024 11:00 AM EDT Office Visit [facility] [address] [place] [phone] John Paul Mayfield, BOILER WATER TESTER - INTERIM CONTROLLER [address] [place] [address] 1 year f/u, [place] prior [facility] Comment on above: 1 year f/u, [place] prior Start: 03-20-2024 End: 03-20-2024 Patient encounter procedure 03/20/2024 11:00 AM EDT Office Visit [facility] [address] [place] [address] John Paul Mayfield, BOILER WATER TESTER - INTERIM CONTROLLER [address] [place] [address] 1 year f/u, [place] prior-(make sure we have results, patient will be going out of town) [facility] Comment on above: 1 year f/u, [place] prior-(make sure we have results, patient will be going out of town) Start: 03-18-2024 End: 03-18-2024 Patient encounter procedure 03/18/2024 1:00 PM EDT Appointment [facility] Ultrasound [address] [id number] epic/ sched w/ Anastasiya in office [facility] Comment on above: epic/ sched w/ Anastasiya in office Start: 02-11-2024 End: 02-11-2024 Patient encounter procedure 02/11/2024 8:00 AM EDT Office Visit [facility] [address] [place] [id number] Roni Dahl MD [address] [place] [address] Appt Reason: Routine Existing Condition Follow Up [facility] Comment on above: Appt Reason: Routine Existing Condition Follow Up Start: 02-06-2024 Dual energy X-ray absorptiometry XR dexa axial skeleton [facility] Start: 02-06-2024 DXA Skeletal system.axial Views for bone density [facility] Start: 12-31-2023 Tetanus vaccination Tetanus: Every 10yrs [facility] Start: 12-19-2023 Hemolytic complement CH50 [facility] Start: 12-12-2023 End: 12-12-2023 Patient encounter procedure 12/12/2023 10:00 AM EDT Office Visit [facility] [employer] [address] [place] [id number] Reagan Pascal MD [address] [place] [address] 3 wk f/u ED tachycardia & event monitor [facility] [employer] [facility] Comment on above: 3 wk f/u ED tachycardia & event monitor Start: 11-14-2023 End: 11-14-2023 Patient encounter procedure 11/14/2023 10:45 AM EDT Procedure visit [facility] Urology [address] [facility] [address] [place] [address] Vadim Peña PA-C 27 [facility] [address] urogram [facility] Comment on above: cysto after CT urogram Start: 11-01-2023 Depression Monitoring Depression Monitoring [facility] Start: 09-19-2023 Hemolytic complement CH50 [facility] Start: 09-02-2023 End: 09-02-2023 Patient encounter procedure [facility] [employer] [facility] Comment on above: 1 yr f/u lab/ekg/ Start: 08-21-2023 Lipid panel Lipids [facility] Start: 08-06-2023 End: 08-06-2023 Patient encounter procedure 08/06/2023 8:40 AM EST Office Visit [facility] [address] [place] [phone] Roni Dahl MD [address] [place] [address] 3 mos - Hyperlipidemia, depression, Hypothyroid, gerd, insomnia, sleep apnea, arthritis [facility] Comment on above: 3 mos - Hyperlipidemia, depression, Hypo thyroid, gerd, insomnia, sleep apnea, arthritis Start: 05-27-2023 Hemolytic complement CH50 level [facility] Start: 05-09-2023 End: 05-09-2023 Patient encounter procedure 05/09/2023 11:30 AM EST Appointment [facility] Mammography [address] [id number] SELF REF/PT [facility] Comment on above: SELF REF/PT Start: 05-06-2023 End: 05-06-2023 Patient encounter procedure [facility] Comment on above: Return in about 6 months (around 05/03/20 23) for Hyperlipidemia, Hypothyroid, depression, gerd, arthritis and MEDICARE wellness Start: 05-04-2023 Annual Wellness Visit (AWV) Annual Wellness Visit (AWV) [facility] Start: 05-03-2023 Depression Monitoring Depression Monitoring [facility] Start: 05-03-2023 History and physical examination, annual for health maintenance Wellness Visit [facility] Start: 03-22-2023 End: 03-22-2023 Patient encounter procedure [facility] Comment on above: 3 month f/u, US results Start: 03-20-2023 End: 03-20-2023 Patient encounter procedure 03/20/2023 Office Visit [facility] Start: 03-19-2023 [facility] Start: 03-13-2023 End: 03-13-2023 Patient encounter procedure 03/13/2023 Appointment Radiology Yanelis Guzman MD [address] [facility], [address] [place] [address] [facility] Ultrasound Start: 03-01-2023 COVID-19 Vaccine ( season) COVID-19 Vaccine ( season) [facility] Start: 03-01-2023 Influenza vaccination Sequential Influenza Vaccine (#1) [facility] Start: 01-29-2023 Influenza vaccination Flu vaccine (#1) [facility] Start: 12-21-2022 End: 12-21-2022 Patient encounter procedure 12/21/2022 Office Visit Urology [facility] Start: 10-31-2022 End: 10-31-2022 Patient encounter procedure 10/31/2022 Office Visit Roni Rico MD [address] [place] [address] [facility] Start: 09-05-2022 COVID-19 Vaccine (5 - Moderna series) COVID-19 Vaccine (5 - Moderna series) [facility] Start: 09-03-2022 End: 09-03-2022 Patient encounter procedure [facility] Start: 08-29-2022 Lipid panel [facility] Start: 08-29-2022 Thyroid stimulating hormone measurement [facility] Start: 08-21-2022 Bacteria identified in Urine by Culture [facility] Start: 08-21-2022 Hemolytic complement CH50 level [facility] Start: 07-31-2022 End: 07-31-2022 Patient encounter procedure 07/31/2022 Appointment Physical Therapy Maria R Malhotra, [facility] Start: 07-17-2022 [facility] Start: 07-03-2022 [facility] Start: 07-03-2022 Radiofrequency destruction of peripheral nerve DH Nerve Radio Frequency (Left) [facility] Start: 05-29-2022 [facility] Start: 05-03-2022 Annual Wellness Visit (AWV) Annual Wellness Visit (AWV) [facility] Start: 05-03-2022 End: 05-03-2022 Patient encounter procedure 05/03/2022 Office Visit Roni Rico MD [address] [place] [address] [facility] Start: 05-02-2022 Depression Monitoring Depression Monitoring [facility] Start: 03-27-2022 [facility] Start: 03-01-2022 Influenza vaccination Flu vaccine (#1) [facility] Start: 10-31-2021 End: 10-31-2021 Patient encounter procedure 10/31/2021 Appointment Physical Therapy Zo Chen, PT [address] [place] [address] [facility] Start: 10-26-2021 COVID-19 Vaccine (4 - Booster for Moderna series) COVID-19 Vaccine (4 - Booster for Moderna series) [facility] Start: 10-11-2021 End: 10-11-2021 Patient encounter procedure 10/11/2021 Appointment Physical Therapy Zo Chen, PT [address] [place] [address] [facility] Start: 10-09-2021 End: 10-09-2021 Patient encounter procedure 10/09/2021 Appointment Physical Therapy Velasquez Martel PTA [facility] Start: 10-04-2021 End: 10-04-2021 Patient encounter procedure 10/04/2021 Appointment Physical Therapy Zo Chen, PT [address] [place] [address] [facility] Start: 10-02-2021 End: 10-02-2021 [...] Therapy Zo Chen, PT [address] [place] [address] [facility] Start: 09-15-2021 End: 09-15-2021 Patient encounter procedure 09/15/2021 Appointment Physical Therapy Velasquez Martel PTA [facility] Start: 09-13-2021 End: 09-13-2021 Patient encounter procedure 09/13/2021 Appointment Physical Therapy Velasquez Martel PTA [facility] Start: 09-08-2021 End: 09-08-2021 Patient encounter procedure 09/08/2021 Appointment Physical Therapy Zo Chen, PT [address] [place] [place] [address] [facility] Start: 09-07-2021 Subsequent hospital visit by physician 09/07/2021 Hospital Encounter Physical Therapy Nancy Nunez [facility] Start: 09-05-2021 End: 09-05-2021 Patient encounter procedure 09/05/2021 Appointment Physical Therapy Velasquez Martel PTA [facility] Start: 09-04-2021 End: 09-04-2021 Patient encounter procedure [facility] Start: 08-31-2021 End: 08-31-2021 Patient encounter procedure 08/31/2021 Appointment Physical Therapy Velasquez Martel PTA [facility] Start: 08-17-2021 Subsequent hospital visit by physician 08/17/2021 Hospital Encounter Physical Therapy Zo Chen, PT [address] [place] [place] [address] [facility] Start: 08-11-2021 Lipid panel Lipid screen [facility] Start: 08-11-2021 Thyroid stimulating hormone measurement TSH testing [facility] Start: 08-11-2021 TSH Qn TSH testing [facility] Work Phone: Start: 08-02-2021 End: 08-02-2021 Patient encounter procedure [facility] Start: 06-29-2021 End: 06-29-2021 Patient encounter procedure 06/29/2021 Appointment Physical Therapy Zo Chen, PT [address] [place] [place] [address] [facility] Start: 06-26-2021 End: 06-26-2021 Patient encounter procedure 06/26/2021 Appointment Physical Therapy Zo Chen, PT [address] [place] [place] [address] [facility] Start: 06-22-2021 End: 06-22-2021 Patient encounter procedure 06/22/2021 Appointment Physical Therapy Zo Chen, PT [address] [place] [place] [address] [facility] Start: 06-20-2021 End: 06-20-2021 Patient encounter procedure 06/20/2021 Appointment Physical Therapy Zo Chen, PT [address] [place] [place] [address] [facility] Start: 06-14-2021 End: 06-14-2021 Patient encounter procedure 06/14/2021 Appointment Physical Therapy GlynnZo, PT [address] [place] [place] [address] [facility] Start: 05-17-2021 End: 05-17-2021 [...] Physical Therapy GlynnZo, PT [address] [place] [place] [address] [phone] [facility] Physical Therapy Start: 05-02-2021 End: 05-02-2021 Patient encounter procedure 05/02/2021 Office Visit Family Roni Villeags MD [address] [place] [address] [phone] [facility] Start: 05-02-2021 End: 05-02-2021 Patient encounter procedure 05/02/2021 Appointment Physical Therapy Rashmi Garcia [facility] Start: 04-21-2021 Annual Wellness Visit (AWV) Annual Wellness Visit (AWV) [place] Start: 03-31-2021 TSH Qn TSH testing [place] Start: 03-01-2021 Influenza vaccination Flu vaccine (#1) [facility] Work Phone: Start: 02-23-2021 COVID-19 Vaccine (3 - Booster for Moderna series) COVID-19 Vaccine (3 - Booster for Moderna series) [facility] Start: 01-30-2021 End: 01-30-2021 Office Visit 01/30/2021 Office Visit Family Roni Villegas MD [address] [place] [address] [phone] [facility] Start: 01-18-2021 Screening for malignant neoplasm of colon Colon cancer screen colonoscopy [place] Start: 09-06-2020 End: 09-06-2020 Office Visit 09/06/2020 Office Visit Cardiology Reagan Pascal MD [address] [place] [address] [phone] [facility] Start: 07-28-2020 End: 07-28-2020 Office Visit [facility] Start: 07-11-2020 End: 07-11-2020 Office Visit 07/11/2020 Office Visit Cardiology Reagan Pascal MD [address] [place] [address] [phone] [facility] Start: 07-07-2020 Lipid panel Lipid screen [place] Start: 07-07-2020 Lipid screen Lipid screen [facility] [employer] Phone: Start: 07-07-2020 TSH Qn TSH testing [facility] Start: 07-07-2020 TSH testing TSH testing [facility] [employer] Phone: Start: 05-10-2020 Shingles Vaccine (3 of 3) Shingles Vaccine (3 of 3) [facility] [place] Start: 04-14-2020 Annual Wellness Visit (AWV) Annual Wellness Visit (AWV) [place] Start: 04-13-2020 Annual Wellness Visit (AWV) Annual Wellness Visit (AWV) [place] Start: 03-13-2020 Breast cancer screen Breast cancer screen [place] Start: 03-13-2020 Screening for malignant neoplasm of breast Breast cancer screen [place] Start: 01-25-2020 End: 01-25-2020 Office Visit 01/25/2020 Office Visit Family Roni Villegas MD [address] [place] [address] [phone] [facility] Start: 07-30-2019 End: 07-30-2019 Office Visit 07/30/2019 Office Visit Family Roni Villegas MD [address] [place] [address] [phone] [facility] Start: 07-27-2019 End: 07-27-2019 Patient encounter procedure 07/27/2019 Office Visit Family Roni Villegas MD [address] [place], [place] [id number] [facility] Start: 07-13-2019 End: 07-13-2019 Office Visit 07/13/2019 Office Visit Cardiology Reagan Pascal MD [address] [place] [address] [phone] [facility] [employer] Start: 07-09-2019 Lipid screen Lipid [place] Start: 07-09-2019 TSH testing TSH testing [place] Start: 12-31-2013 DTaP/Tdap/Td vaccine (1 - Tdap) DTaP/Tdap/Td vaccine (1 - Tdap) [facility] Start: 12-19-2011 Shingles Vaccine (2 of 3) Shingles Vaccine (2 of 3) [place], [place] Start: 2009 Fall risk assessment Falls Risk Assessment [facility] Start: 2004 Respiratory Syncytial Virus (RSV) or age 60 yrs+ (1 - 1-dose 60+ series) Respiratory Syncytial Virus (RSV) or age 60 yrs+ (1 - 1-dose 60+ series) [facility] Start: 1984 Screening for malignant neoplasm of breast Mammogram [facility] Start: 12-19-1963 DTaP/Tdap/Td vaccine (1 - Tdap) DTaP/Tdap/Td vaccine (1 - Tdap) [place] Start: 1962 Hepatitis C screening [facility] Start: 1960 COVID-19 Vaccine (1 of 2) COVID-19 Vaccine (1 of 2) [place] Start: 1956 Depression screening using PHQ-9 (Patient Health Questionnaire 9) score Depression Screening (PHQ-2/9) [facility] Start: 12-19-1955 DTaP/Tdap/Td vaccine (1 - Tdap) DTaP/Tdap/Td vaccine (1 - Tdap) [place] Start: 1944 Hepatitis C screen Hepatitis C screen [place] Start: 1944 Hepatitis C screening Hepatitis C screen [facility] Start: 1944 Screening for osteoporosis Dexa Scan [facility] Complement C3 [Mass/volume] in Serum or Plasma [facility] Complement C3 [Mass/volume] in Serum or Plasma [facility] Complement C3 [Mass/volume] in Serum or Plasma [facility] Complement C3 [Mass/volume] in Serum or Plasma [facility] Complement C4 [Mass/volume] in Serum or Plasma [facility] Complement C4 [Mass/volume] in Serum or Plasma [facility] Complement C4 [Mass/volume] in Serum or Plasma [facility] Complement C4 [Mass/volume] in Serum or Plasma [facility] End: 06-29-2020 COVID-19 COVID-19 Lab Routine Once for 1 Occurrences starting 06/29/2020 until 06/29/2020 [place] Comment on above: Once for 1 Occurrences starting 06/29/20 20 until 06/29/2020 COVID-19 COVID-19 Lab Rou dane 06/29/2020 11:25 AM EST [place] End: 06-12-2021 COVID-19 [employer] Phone: Comment on above: 1 Occurrences starting 06/12/2021 until 06/12/2021 End: 03-31-2020 Covid-19 Ambulatory Covid-19 Ambulatory Lab Routine Viral illness Exposure to COVID-19 virus 1 Occurrences starting 03/31/2020 until 03/31/2020 [place] Comment on above: 1 Occurrences starting 03/31/2020 until 03/31/2020 Covid-19 Ambulatory Covid-19 Amb ulatory Lab Routine Viral illness Exposure to COVID-19 virus 03/31/2020 1:26 PM EDT [place] CT Head WO Contrast CT Head WO C ontrast Imaging STAT 11/25/2022 10:53 AM EDT [facility] [employer] Phone: CT SINUS WO CONTRAST CT SINUS WO CONTRAST Imaging STAT 11/25/2022 10:55 AM EDT [employer] Phone: End: 10-26-2021 Culture, Genital [employer] Phone: Comment on above: 1 Occurrences starting 10/26/2021 until 10/26/2021 End: 11-18-2020 Culture, Urine Culture, Urine Microbiology Routine Once for 1 Occurrences starting 11/18/2020 until 11/18/2020 [employer] Phone: Comment on above: Once for 1 Occurrences starting 11/19/19 21 until 11/18/2020 Culture, Urine Culture, Urine Microbiology Routine 11/18/2020 8:31 AM EDT [employer] Phone: End: 10-14-2021 Culture, Urine [employer] Phone: Comment on above: Once for 1 Occurrences starting 10/15/19 22 until 10/14/2021 End: 10-26-2021 Cytopathology procedure, preparation of smear, genital source PAP SMEAR Lab Routine Women's annual routine gynecological examination 1 Occurrences starting 10/26/2021 until 10/26/2021 [employer] Phone: Comment on above: 1 Occurrences starting 10/26/2021 until 10/26/2021 EKG 12 Lead [employer] Phone: EKG 12 Lead EKG 12 Lead ECG Routine Essential hypertension Palpitations Hypothyroidism, unspecified type Hyperlipidemia, unspecified hyperlipidemia type Vitamin D deficiency disease 08/29/2021 7:22 AM EST [employer] Phone: EKG 12 Lead EKG 12 Lead ECG STAT 10/23/2023 9:56 AM EDT [employer] EKG 12 Lead EKG 12 Lead ECG STAT 10/23/2023 12:15 PM EDT [employer] EKG 12 Lead EKG 12 Lead ECG Routine 11/14/2023 6:42 PM EDT [employer] End: 11-27-2020 Gastrointestinal Panel, Molecular Gastrointestinal Panel, Molecular Microbiology Routine One Time for 1 Occurrences starting 11/27/2020 until 11/27/2020 [employer] Phone: Comment on above: One Time for 1 Occurrences starting 10/31 until 11/27/2020 Gastrointestinal [place], Molecular Gastrointestinal Panel, Molecular Microbiology STAT 11/27/2020 11:00 AM EDT [employer] Phone: End: 11-09-2019 ANA DIGITAL SCREEN W OR WO CAD BILATERAL ANA DIGITAL SCREEN W OR WO CAD BILATERAL Imaging Routine Visit for screening mammogram 1 Occurrences starting 11/09/2019 until 11/09/[facility] above: 1 Occurrences starting 11/09/2019 until 11/09/2019 ANA DIGITAL SCREEN W OR WO CAD BILATERAL ANA DIGITAL SCREEN W OR WO CAD BILATERAL Imaging Routine Visit for screening mammogram 11/09/2019 11:37 AM EDT [facility] End: 01-20-2021 ANA WU DIGITAL SCREEN BILATERAL ANA WU DIGITAL SCREEN BILATERAL Imaging Routine Screening mammogram, encounter for 1 Occurrences starting 01/20/2021 until 01/20/2021 [facility] [employer] Work Phone: Comment on above: 1 Occurrences starting 01/20/2021 until 01/20/2021 ANA WU DIGITAL SCR EEN BILATERAL ANA WU DIGITAL SCREEN BILATERAL Imaging Routine Screening mammogram, encounter for 01/20/2021 8:[address] [facility] Work Phone: Patient Education [facility] Work Phone: Patient referral [facility] Work Phone: XR CHEST STANDARD (2 VW) XR CHES T STANDARD (2 VW) Imaging STAT 05/30/2019 6:19 AM EST [facility] Immunizations Immunization Date Immunization Notes Care Provider Sierra paredes 05-06-2023 Influenza, FLUAD, (a ge 65 y+), Adjuvanted, 0.5mL Monster Mei MD Work Phone: [facility] 05-08-2022 SARS-CoV-2 (COVID-19 ) [id number] Donna Spencer [facility] 05-03-2022 influenza virus vaccine, unspecified formulation Donna Spencer [facility] Comment on above: Result Comment: 2021: VIS DATE: 02/03/2021 05-03-2022 Influenza, FLUAD, (a ge 65 y+), Adjuvanted, 0.5mL Maria R Malhotra PT [facility] Work Phone: 06-27-2021 COVID-19, Moderna, Booster, PF, 50mcg/0.25ml Mwh Mw [facility] [employer] Phone: 05-02-2021 Influenza, Quadv, adjuvanted, 65 yrs +, IM, PF (Fluad) Rashmi Garcia [facility] 08-26-2020 COVID-19, Moderna, Primary or Immunocompromised, PF, 100mcg/0.5mL Mwh 1 [facility] Phone: 07-29-2020 COVID-19, Moderna, Primary or Immunocompromised, PF, 100mcg/0.5mL Mwh 1 [facility] Phone: 05-12-2020 zoster vaccine recombinant [facility], [place] 03-15-2020 influenza virus vaccine, unspecified formulation Maria R Malhotra PT [facility] Work Phone: 03-15-2020 Influenza, High-dose , Quadv, 65 yrs +, IM (Fluzone) [facility] 03-15-2020 influenza, injectabl e, quadrivalent, preservative free [facility] 03-15-2020 zoster vaccine recombinant [facility], [place] 04-14-2019 influenza virus vaccine, unspecified formulation Donna Doverz [facility] Comment on above: Result Comment: 2021: VIS DATE: 02/12/2019 04-14-2019 influenza, injectabl e, quadrivalent, preservative free [facility], [place] 04-07-2018 influenza virus vaccine, unspecified formulation Donna Johanna [facility] Comment on above: Result Comment: 2021: VIS DATE: 02/04/2015 04-07-2018 influenza, injectabl e, quadrivalent, preservative free [facility], [place] 04-10-2017 influenza virus vaccine, unspecified formulation [facility] 05-14-2016 influenza, high dose seasonal, preservative-free [facility] 03-01-2016 pneumococcal conjuga te vaccine, 13 valent [facility] 04-12-2015 influenza virus vaccine, unspecified formulation [facility] 04-24-2014 influenza virus vaccine, unspecified formulation [facility] 04-24-2014 influenza, whole Donna Botello etvivien [facility] 12-30-2013 Td, unspecified formulation [facility] 12-30-2013 tetanus and diphther ia toxoids, adsorbed, preservative free, for adult use (2 Lf of tetanus toxoid and 2 Lf of diphtheria toxoid) Donna Spencer [facility] 12-30-2013 tetanus and diphther ia toxoids, adsorbed, preservative free, for adult use (5 Lf of tetanus toxoid and 2 Lf of diphtheria toxoid) Monster Mei MD Work Phone: [facility] 07-17-2013 influenza virus vaccine, unspecified formulation [facility] 07-17-2013 influenza, whole Donna Botello etvivien [facility] 10-24-2011 zoster vaccine, live [facility] [place] 03-31-2011 pneumococcal polysaccharide vaccine, 23 valent [place], [place] Payers Date Payer Category Payer Self-pay [id number] 2022 Private Health Insurance [id number] 2020 Private Health Insurance [id number] .[id number] 2020 Private Health Insurance [id number] .[id number] 2014 Medicare MEDICARE MEDICAR E PART A AND B xxxxxxxxxxx 2014-Present [phone] [address] [address] [place] [address] xxxxxxxxxxx [id number] .[id number] 2014 Unknown DUSTIN CHAN [place] xxxxxxxxxx 2014-Present [phone] [address] [place] [address] xxxxxxxxxx [id number] .[id number] 2014 Unknown [id number] .7.3.489561.315 2009 Medicare [id number] [id number] .[id number] 2009 Medicare [id number] 1.2.840.898206.1.13.239.2 .7.3.939908.315 1944 Unknown [id number] 2.16.840.1.866083.3.579.2 .173 1944 Unknown [id number] 2.16.840.1.828265.3.579.2 .173 1944 Unknown [id number] 2.16.840.1.500128.3.579.2 .173 1944 Unknown [id number] 2.16.840.1.822912.3.579.2 .173 1944 Unknown [id number] 2.16.840.1.338650.3.579.2 .173 1944 Unknown [id number] 2.16.840.1.679604.3.579.2 .173 1944 Unknown [id number] 2.16.840.1.958797.3.579.2 .173 1944 Unknown [id number] 2.16.840.1.596608.3.579.2 .903 1944 Unknown [id number] 2.16.840.1.964794.3.579.2 .903 1944 Unknown [id number] 2.16.840.1.613243.3.579.2 .174 1944 Unknown [id number] 2.16.840.1.238477.3.579.2 .174 1944 Unknown [id number] 2.16.840.1.094082.3.579.2 .174 1944 Unknown [id number] 2.16.840.1.423054.3.579.2 .174 1944 Unknown [id number] 2.16.840.1.862042.3.579.2 .174 1944 Unknown [id number] 2.16.840.1.935724.3.579.2 .174 1944 Unknown [id number] 2.16.840.1.976043.3.579.2 .174 1944 Unknown [id number] 2.16.840.1.239391.3.579.2 .174 1944 Unknown [id number] 2.16.840.1.790565.3.579.2 .174 1944 Unknown [id number] 2.16.840.1.339144.3.579.2 .174 1944 Unknown [id number] 2.16.840.1.974107.3.579.2 .174 1944 Unknown [id number] 2.16.840.1.352050.3.579.2 .174 1944 Unknown [id number] 2.16.840.1.407798.3.579.2 .174 1944 Unknown [id number] 2.16.840.1.745996.3.579.2 .174 1944 Unknown [id number] 2.16.840.1.304082.3.579.2 .174 1944 Unknown [id number] 2.16.840.1.408669.3.579.2 .174 1944 Unknown [id number] 2.16.840.1.039298.3.579.2 .174 1944 Unknown [id number] 2.16.840.1.378186.3.579.2 .174 1944 Unknown [id number] 2.16.840.1.221107.3.579.2 .174 1944 Unknown [id number] 2.16.840.1.426497.3.579.2 .174 1944 Unknown [id number] 2.16.840.1.411423.3.579.2 .174 1944 Unknown [id number] 2.16.840.1.059197.3.579.2 .174 1945 Unknown [id number] 2.16.840.1.364296.3.579.2 .174 1945 Unknown [id number] 2.16.840.1.245163.3.579.2 .174 1945 Unknown [id number] 2.16.840.1.410094.3.579.2 .174 1945 Unknown [id number] 2.16.840.1.601680.3.579.2 .174 1945 Unknown [id number] 2.16.840.1.155690.3.579.2 .174 1945 Unknown [id number] 2.16.840.1.101980.3.579.2 .174 1945 Unknown [id number] 2.16.840.1.922481.3.579.2 .174 1945 Unknown [id number] 2.16.840.1.455552.3.579.2 .174 1945 Unknown [id number] 2.16.840.1.668369.3.579.2 .174 1945 Unknown [id number] 2.16.840.1.738759.3.579.2 .174 1945 Unknown [id number] 2.16.840.1.628863.3.579.2 .174 1945 Unknown [id number] 2.16.840.1.392259.3.579.2 .174 1945 Unknown [id number] 2.16.840.1.605775.3.579.2 .727 1945 Unknown [id number] 2.16.840.1.890575.3.579.2 .727 1945 Unknown [id number] 2.16.840.1.000639.3.579.2 .196 1945 Unknown [id number] 2.16.840.1.169519.3.579.2 .196 1945 Unknown [id number] 2.16.840.1.700450.3.579.2 .196 1945 Unknown [id number] 2.16.840.1.315855.3.579.2 .196 1945 Unknown [id number] 2.16.840.1.889526.3.579.2 .196 1945 Unknown [id number] 2.16.840.1.696334.3.579.2 .196 1945 Unknown [id number] 2.16.840.1.061800.3.579.2 .196 Unknown [id number] 2.16.840.1.970553.3.579.2 .531 Unknown [id number] 2.16.840.1.859760.3.579.2 .531 Unknown [id number] 2.16.840.1.597407.3.579.2 .531 Unknown [id number] 2.16.840.1.806569.3.579.2 .531 Unknown [id number] 2.16.840.1.854943.3.579.2 .531 Unknown [id number] 2.16.840.1.207325.3.579.2 .531 Unknown [id number] 2.16.840.1.506902.3.579.2 .531 Unknown [id number] 2.16.840.1.642919.3.579.2 .531 Social History Date Type Detail Facility Start: 05-30-2019 End: 03-14-2023 Tobacco smoking status NHIS Never smoker [facility] Start: 05-30-2019 End: 11-14-2023 Alcohol intake Current [facility]-dr[facility] (finding[facility] [place] [place] Start: 1945 [facility] [place] [place] Start: 03-31-2020 End: 11-14-2023 Tobacco use and exposure [facility] [place] Exposure to SARS-CoV-2 (event) Yes [facility] [place] Start: 10-04-2021 End: 07-12-2022 Exposure to SARS-CoV-2 (event) Not sure [facility] Start: 11-22-2020 End: 09-03-2022 History SDOH Financial 5 [employer] Phone: Start: 11-22-2020 End: 09-03-2022 History SDOH Food Worry 1 [employer] Phone: Start: 1945 Sex Assigned At Female [facility] [employer] Phone: Start: 04-14-2019 End: 10-23-2023 Alcohol intake No [facility] [place] Tobacco smoking status Never [facility] Start: 09-03-2022 End: 11-25-2022 History SDOH Alcohol Frequency 2 [employer] Phone: Start: 11-25-2022 History SDOH Alcohol Std Drinks 0 [employer] Work Phone: Start: 11-25-2022 End: 10-23-2023 History of Social function [employer] How often to you hav e a drink containing alcohol? Monthly or less [employer] How often do you hav e 6 or more drinks on 1 occasion? Never [employer] (I/We) worried whether (my/our) food would run out before (I/we) got money to buy more. Never true [employer] At any time in the past 12 months, were you homeless or living in [facility] [including now]? No [employer] Start: 01-27-2021 Gender identity Identifies as female gender (finding) [employer] Start: 04-13-2020 Sexual orientation Heterosexual (fin ding) [employer] Start: 05-02-2023 Alcohol intake Ex-drinker (finding) [facility] NEGATED: Highlighted rowStart: MUNAF History of tobacco use Passive smoker [employer] Medical Equipment Procedure Code Equipment Code Equipment Origin al Text Equipment Identifier Dates Surgical procedure, using tension free vaginal tape, for stress incontinence [id number] FDA Start: 06-03-2019 Surgical procedure, using tension free vaginal tape, for stress incontinence [id number] FDA Start: 06-03-2019 Surgical procedure, using tension free vaginal tape, for stress incontinence [id number] FDA Start: 06-03-2019 Surgical procedure, using tension free vaginal tape, for stress incontinence [id number] FDA Start: 06-03-2019 Surgical procedure, using tension free vaginal tape, for stress incontinence [id number] FDA Start: 06-03-2019 Surgical procedure, using tension free vaginal tape, for stress incontinence [id number] FDA Start: 06-03-2019 Surgical procedure, using tension free vaginal tape, for stress incontinence [id number] FDA Start: 06-03-2019 Surgical procedure, using tension free vaginal tape, for stress incontinence [id number] FDA Start: 06-03-2019 Surgical procedure, using tension free vaginal tape, for stress incontinence [id number] FDA Start: 06-03-2019 Surgical procedure, using tension free vaginal tape, for stress incontinence [id number] FDA Start: 06-03-2019 Surgical procedure, using tension free vaginal tape, for stress incontinence [id number] FDA Start: 06-03-2019 Surgical procedure, using tension free vaginal tape, for stress incontinence [id number] FDA Start: 06-03-2019 Surgical procedure, using tension free vaginal tape, for stress incontinence [id number] FDA Start: 06-03-2019 Surgical procedure, using tension free vaginal tape, for stress incontinence [id number] FDA Start: 06-03-2019 Surgical procedure, using tension free vaginal tape, for stress incontinence [id number] FDA Start: 06-03-2019 {01}[id number] 82 7{17}[id number]{10}14 [id number] FDA Start: 07-28-2021 Goals Date Patient Goal Desired Activity /State Personal health goal Functional Status Date Assessment Result Facility 09-16-2023 Functional Status N/A [facility] 02-28-2023 Functional Status N/A [facility] 08-28-2022 Functional Status N/A [facility] 07-26-2022 Functional Status N/A [facility] 07-10-2022 Functional Status N/A [facility] Clinical Notes 11-18-2020 to 10-23-2023 Discharge [...] and blood thinners. Close follow-up with your heel attacher, otherwise follow-up with your PCP, return to ER if any symptoms change or further concerns. Stay well-hydrated with water or nonsugar sports drinks, Zofran ODT for any nausea as needed, I would advise not to use anything for the diarrhea at this time save soft toilet paper or baby wipes as needed. The following attachments cannot be sent through Care Everywhere.Serous Otitis Media (Nigerian)Atrial Fibrillation (Nigerian)Direct Oral Anticoagulants: Non-Vitamin K Antagonist (Nigerian)Oral Rehydration (Nigerian)documented in this encounter [facility] 09-17-2023 Note [id number] [facility] 09-16-2023 Hospital Discharg e instructions Patient [...] 3 times a day. General instructions Take urgw-lri-qssznby and prescription medicines only as told by [...] provider. Document Revised: 12/27/2021 Document Reviewed: 12/27/2021 [employer] Patient Education 2022 [employer]Support. 09/16/2023 14:59:47 Diverticulosis MAGR (CUSTOM) Diverticulosis Many [...] unsweetened, w/added ascorbic acid 1 cup 0.5 Dille 1 cup 0.7 Vegetables Cooked Green beans 1 cup 4.0 Carrots 1/2 cup sliced 2.3 Peas 1 cup 8.8 Potato (baked, with skin) 1 medium potato 3.8 Raw Ransom (with peel) 1 cucumber 1.5 Lettuce 1 [...] 8.7 Peanuts 1/2 cup 7.9 Chart from [facility] 2013. SEEK IMMEDIATE MEDICAL CARE IF: You [...] Available at http://www.nal.usda.gov/fnic/sylvia dcomp/search/. Information adapted from: [facility] Patient Information 2009 [employer]. [employer] 2012 http://www.[employer]/contents /llnihenfowxj-mtqwthj-ynglmc-the -basics 09/16/2023 14:59:47 Colon Polyps Colon Polyps [...] hard liquor (44 mL). General instructions Take sjtf-enk-mfpylpo and prescription medicines only as told by [...] provider. Document Revised: 10/05/2020 Document Reviewed: 10/05/2020 [employer] Patient Education 2022 [employer]Support. Follow Up Care 02/28/2023 13:25:17 With:Davion Olivares Address: [address] [place] [address], [address] [phone] Business (1) When: Unknown Comments:office will call for follow up [facility] 09-16-2023 Evaluation + Plan note Extrac pepito from: Title:ANES Post General Author:Danny Anesthes iology ()Obie Date:09/16/23 Plan Transfer/Discharge: Patient exhibiting no signs of N/V. Hydration status is adequate. Extracted from: Title:Danny Basic PRE Author:Danny Anesthe siology ()Obie Date:09/16/23 Plan [place] [employer] of Anesthesiologists (ASA) physical status classification: Class III. Anesthetic Preoperative Plan: Anesthesia General. [facility]11-02-2023 Instructions* Patient Instructions* Grayson Hutchinson Jr., DO [...] for repeat hearing testing. documented in this [id number] History of Present illness Narrative* Mary Sue, Oswaldo - 05/02/2023 9:19 AM EDT Images from the original note were not included. [facility] [address] [address] Name: Mary Jane Rios : 1945 Date: [...] for bilateral ear infection. She returned to [employer] and was told that herear was still infected. She reports her last hearing test several years ago in [place]. 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 Subjective Patient ID: Mary Jane Rios is a 77 y.o. female. 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 Patient states she has had left ear infections for most of her life. She was treated for ear infection with Augmentin in October. 3 weeks ago, woke up with extreme pain and was treated again for b/l ear infection. She returned to [employer] and was told thather ear was still infected. Last hearing test several years ago in [place]. 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 documented in this [id number] NoteChief Complaint: lbp and radicular pain right [...] current indications for surgical management [facility] NoteChief Complaint: lbp and radicular pain right [...] preoperative surgical planning [facility]* Encounter Date Diagnosis Assessment Notes Treatment Notes Treatment Clinical Notes Mar, Piriformis syndrome of right side (ICD-10 - G57.01) [employer] Other 09-14-2023 Evaluation note* Encounter Date Diagnosis [...] note writ ten by John Merlos LPN, Inspector Line. Edited and approved by Dr. Yanelis Garcia MD. [employer] Other 09-07-2023 Evaluation note* Encounter Date Diagnosis [...] be replaced but there are areas of nwzo-px-lmba. My suspicion is that this is causing some nerve irritation I have no indication for doing back surgery I think injections in the spine will be of no benefit she is already had some and they have not helped. I think what needs to be injected or treated is the area around the hip. Mar, Right hip pain (ICD-10 - M25.551) [employer] Other 08-28-2023 Evaluation note* Encounter Date Diagnosis Assessment Notes Treatment Notes Treatment Clinical Notes Jan, Other spondylosis with radiculopathy, lumbar region (ICD-10 - M47.26) [employer] Other 08-17-2023 Evaluation note* Encounter Date Diagnosis Assessment Notes Treatment Notes Treatment Clinical Notes Jan, Other spondylosis with radiculopathy, lumbar region (ICD-10 - M47.26) [employer] Other 08-11-2023 Hospital Discharge instructions* Discharge Instructions* Keyshawn Suresh PA-C - 02/08/2023 4:26 PM EDT Follow-up with primary care doctor 7 to 10 days for reevaluation. Continue to wear corrective shoe as directed to prevent future sciatica low back pain events. Take [place] as directed. As we discussed, break a tab of [place] in half and take every 6 hours as needed for pain. Promptly return to emergency department for new, changing, worsening of symptoms or other concerns. * Attachments The following attachments cannot be sent through Care Everywhere. * Back Pain (Nigerian) * Sciatica (Nigerian) [facility]* Encounter Date Diagnosis Assessment Notes [...] therapy. Follow above of treatment plan recommendations. [employer] Other 05-28-2023 History of Present illness Narrative* Zunilda Bullock RN - 11/25/2022 10:47 AM EDT Ticket to ride completed. The following information was reported off: Name Allergies Orientation Level Destination Safety Issues Code Status Oxygen Requirements Special needs including mobility, language, communication documented in this encounterB[facility] Work Phone: 1(606) 134-483402-28-2023 Hospital Discharge instructions Patient Education 08/28/2022 13:26:40 [...] powder, vinegar, hot sauces, and barbecue sauce. ?Tacna fruit juices and citrus fruits, such as oranges, kamilah, and limes. ?Tomato-based foods, such as red sauce, chili, salsa, and pizza with red sauce. ?Fried and fatty foods, such as donuts, andorran fries, potato chips, and high-fat dressings. ?High-fat [...] to any changes in your symptoms. Take rcuj-gfu-cmnryxj and prescription medicines only as told by [...] you have new or worsening symptoms. Take sjrc-uli-foukikp and prescription medicines only as told by [...] 03/27/2006 Document Revised: 12/24/2018 Document Reviewed: 12/24/2018 [employer] Patient Education 2020 [employer]Support. Follow Up Care 08/15/2022 13:39:48 With:KHADAR STEINER, EMIL Ferrari, [facility] Address: [address] [place] [address]. [address] [place] [address] When:6 months Comments:Patient requests to be evaluated by Dr. Hernandez next visit. [facility] [id number] Evaluation note* Encounter Date Diagnosis Assessment Notes [...] note writ ten by John Merlos LPN, Inspector Line. Edited and approved by Dr. Yanelis Garcia MD. [employer] Other 01-26-2023 Evaluation + Plan noteExtracted from: Title:ANES Pre-operative Note Author:Misha STEINER, R miryam S. Date:07/26/22 Plan [place] Society of Anesthesiologists (ASA) physical status classification: Class III. Anesthetic Preoperative Plan: Anesthesia General. [facility]01-26-2023 Hospital Discharge instructions Patient Education 07/26/2022 [...] what activities are safe for you. Take rnjk-qrd-wwgvrsc and prescription medicines only as told by [...] 12/16/2012 Document Revised: 12/09/2018 Document Reviewed: 11/17/2018 [employer] Patient Education 2020 [employer]Support. Follow Up Care 07/10/2022 14:59:17 With:Vonda HERNANDEZ Address: [address] [place] [address] Business (1) When: Unknown Comments:Office will call date and time of follow-up appt. [facility]01-17-2023 Procedure [facility]01-12-2023 Hospital Discharge instructions* Discharge Instructions* Alma Mao DO - 07/12/2022 9:31 AM EST Go to your scheduled appt with your GI doctor for your scope. * Attachments The following attachments cannot be sent through Care Everywhere. * Sore Throat (Nigerian) documented in this encounterB[facility] [employer] Work Phone: 1(746) 673-613201-10-2023 Hospital Discharge instructions Patient Education 07/10/2022 14:24:54 [...] powder, vinegar, hot sauces, and barbecue sauce. ?Tacna fruit juices and citrus fruits, such as oranges, kamilah, and limes. ?Tomato-based foods, such as red sauce, chili, salsa, and pizza with red sauce. ?Fried and fatty foods, such as donuts, andorran fries, potato chips, and high-fat dressings. ?High-fat [...] to any changes in your symptoms. Take ootd-jxt-zzfdyog and prescription medicines only as told by [...] you have new or worsening symptoms. Take zjcl-nrd-zdvrdsl and prescription medicines only as told by [...] 03/27/2006 Document Revised: 12/24/2018 Document Reviewed: 12/24/2018 [employer] Patient Education 2019 TeamSupport. Follow Up Care 06/26/2022 15:51:19 With:Donna Spencer CNP Address: When:1 to 2 weeks Comments:Following EGD. [facility] 12-14-2022 Evaluation note* Encounter [...] note writ ten by John Merlos LPN, Inspector Line. Edited and approved by Dr. Yanelis Garcia MD. [employer] Other 11-02-2022 Evaluation note* Encounter Date Diagnosis [...] note writ ten by Rush Toro MA, Inspector Line. Edited and approved by Dr. Yanelis Garcia MD. [employer] Other 10-10-2022 Evaluation note* Encounter Date Diagnosis [...] note writ ten by John Merlos LPN, Inspector Line. Edited and approved by Dr. Yanelis Garcia MD. [employer] Other 04-13-2022 History of Present illness Narrative* Zo Chen, PT - 10/11/2021 9:00 AM EDT Images from the original note were not included. [facility] Daily Note Date: 10/11/2021 Patient Name: Mary Jane Rios : 1945 (75 y.o.) Referring Practitioner: Dr. 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 3: Functionally elevate right shoulder to reach behind head for self care/hair care-MET [facility] goal 4: Functionally reach behind back to don coat or bra- NOT MET 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 [facility] Discharge Summary Patient: Mary Jane Rios : 1945 Referring Practitioner: Dr. Meyer Diagnosis: Right RCR repair Date Treatment Initiated: 04/28/22 Date of Last Treatment: 10/11/21 PT Visit Information Onset Date: 07/28/21 PT Insurance Information: [facility] Total # of Visits Approved: 18 Total [...] CHEN PT Date: 10/11/2021 documented [facility] this [facility] Phone: 1(332) 427-544904-06-2022 History of Present illness Narrative* Zo Chen PT - 10/04/2021 11:15 AM EDT Images from the original note were not included. [facility] Daily Note Date: 10/04/2021 Patient Name: Mary Jane Rios : 1945 (75 y.o.) Referring Practitioner: Dr. 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 Rashmi Paige Date: 09/25/2021 documented in this [facility] [employer] Phone: 1(961) 891-901403-24-2022 History of Present illness Narrative* Velasquez Martel PTA - 09/21/2021 9:00 AM EDT Images from the original note were not included. [facility] Daily Note Date: 09/21/2021 Patient Name: Mary Jane Rios : 1945 (75 y.o.) Referring Practitioner: Dr. 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 [facility] Daily Note Date: 09/19/2021 Patient Name: Mary Jane Rios : 1945 (75 y.o.) Referring Practitioner: Dr. 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 [facility] Daily Note Date: 09/15/2021 Patient Name: Mary Jane Rios : 1945 (75 y.o.) Referring Practitioner: Dr. 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 3: Functionally elevate right shoulder to reach behind head for self care/hair care [facility] goal 4: Functionally reach behind back to don coat or bra [facility] goal 5: Strength right shoulder/UE to carry gallong of milk Post Treatment Pain: 4/10 Time In: 0945 Time Out : 1030 Timed Code Treatment Minutes: 45 Minutes Total Treatment Time: 45 Minutes Velasquez Martel PTA Date: 09/15/2021 [facility]: 1(734) 901-842803-16-2022 History of Present illness Narrative* Velasquez Martel PTA - 09/13/2021 9:45 AM EDT Images from the original note were not included. [facility] Daily Note Date: 09/13/2021 Patient Name: Mary Jane Rios : 1945 (75 y.o.) Referring Practitioner: Dr. 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 [facility] Daily Note Date: 09/07/2021 Patient Name: Mary Jane Rios : 1945 (75 y.o.) Referring Practitioner: Dr. 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 4: Functionally reach behind back to don coat or bra 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 5: Strength right shoulder/UE to carry gallong of milk Post Treatment Pain: 08/10 Time In: 1105 Time Out : 1150 Timed Code Treatment Minutes: 45 Minutes Total Treatment Time: 45 Minutes ZO CHEN, PT Date: 09/07/2021 documented [facility] this [facility] Phone: 1(857) 769-216112-13-2021 History of Present illness Narrative* Rashmi Shukla Royal - 06/12/2021 10:30 AM EST [facility] Date: 06/12/2021 Patient Name: Mary Jane Rios : 1945 Pt Cancelled Appt due to Illness Rashmi Shukla Royal Date: 06/12/2021 documented [facility] this [facility] Phone: 1(176) 505-810011-05-2021 History of Present illness Narrative* Zo Chen, PT - 05/05/2021 2:30 PM EDT Images from the original note were not included. 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 1: Subjective right shoulder pain < 3/10 with daily household tasks [facility] goal 2: Active functional mobility to reach behind head for hair care and behind back to don coat/dressing [facility] goal 3: Strength right shoulder to lift/carry gallon of milk or fold clothes Post Treatment Pain: 09/07 Time In: 1435 Time Out : 1510 Timed Code Treatment Minutes: 35 Minutes Total Treatment Time: 35 Minutes ZO CHEN PT Date: 05/05/2021 documented in this [facility] Work Phone: 1(608) 504-758605-21-2021 History of Present illness Narrative* Ericka Cline RN - 11/18/2020 6:50 AM EDT Pt states she took 6 tablets of Imodium yesterday. She states she is incontinent of urine/stool & the imodium is not helping. documented in this [facility] Work Phone: evaluation + Plan note No data available for this section [facility] Evaluation + Plan note Future Appointments Appointment Date:07/10/2022 02:00:00 PM Scheduled Provider:Donna Spencer CNP Location:[facility] Appointment Type:BAD Follow Up [facility] Evaluation + Plan note Future Appointments Appointment Date:07/26/2022 08:15:00 AM Scheduled Provider: Location:[facility] Appointment Type:Surgery FT [facility] Evaluation + Plan note Future Appointments Appointment Date:02/28/2023 12:00:00 PM Scheduled Provider:Vonda HERNANDEZ MD Location:[facility] Appointment Type:[facility] Follow Up Future Scheduled Tests Laboratory* Vitamin B12 Level 08/28/22 [facility] Evaluation + Plan note Future Appointments Appointment Date:08/05/2023 12:30:00 PM Scheduled Provider: Location:[facility] Appointment Type:Surgery FT Future Scheduled Tests Laboratory* Vitamin B12 Level 08/28/22 [facility] evaluation note* Diagnosis Nausea vomiting and diarrhea- Primary Nausea with vomiting documented in this encounter [employer] Phone: evaluation note* Diagnosis Diarrhea of presumed infectious origin Intractable vomiting with nausea, unspecified vomiting type documented in this encounter [employer] Phone: evaluevoxs note* Diagnosis Diarrhea, unspecified type- Primary General weakness Other malaise and fatigue Urinary incontinence, unspecified type documented in this encounter [employer] Phone: evaluation note* Diagnosis Low hemoglobin Anemia, unspecified documented in this encounter [employer] Phone: evalmrzoqh note* Diagnosis Low hemoglobin Anemia, unspecified documented in this encounter [employer] Phone: evaluation note* Diagnosis Screening mammogram, encounter for documented in this encounter [employer] Phone: evalwcxois note* Diagnosis Right shoulder pain, unspecified chronicity documented in this encounter [employer] Phone: evaluation note* Diagnosis Acute non-recurrent pansinusitis documented in this encounter [employer] Phone: evaluation note* Diagnosis Diarrhea of presumed infectious origin documented in this encounter [facility]SAM[facility]ONTEEvaluation note* Diagnosis History of arthroscopy of right shoulder documented in this encounter [employer] Phone: evaluation note* Diagnosis Essential hypertension Unspecified essential hypertension Palpitations Hypothyroidism, unspecified type Hyperlipidemia, unspecified hyperlipidemia type Vitamin D deficiency disease Unspecified vitamin D deficiency documented in this encounter [employer] Phone: evaluation note* Diagnosis Essential hypertension Unspecified essential hypertension Pure hypercholesterolemia Acquired hypothyroidism Unspecified hypothyroidism Palpitations Vitamin D deficiency disease Unspecified vitamin D deficiency documented in this encounter [employer] Phone: evaluation note* Diagnosis Essential hypertension Unspecified essential hypertension Pure hypercholesterolemia Acquired hypothyroidism Unspecified hypothyroidism Palpitations Vitamin D deficiency disease Unspecified vitamin D deficiency documented in this encounter [employer] Phone: evaluation note* Diagnosis Essential hypertension Unspecified essential hypertension Pure hypercholesterolemia Acquired hypothyroidism Unspecified hypothyroidism Palpitations Vitamin D deficiency disease Unspecified vitamin D deficiency documented in this encounter [employer] Phone: evaluation note* Diagnosis Acute cystitis with hematuria- Primary Acute cystitis Vaginal yeast infection Candidiasis of vulva and vagina documented in this encounter [employer] Phone: evaluation note* Diagnosis Women's annual routine gynecological examination Vaginal burning Other specified symptom associated with female genital organs documented in this encounter [employer] Phone: evaluation note* Diagnosis H/O repair of right rotator cuff Personal history of surgery to other organs documented in this encounter [employer] Phone: evaluation note* Diagnosis Visit for screening mammogram Other screening mammogram documented in this encounter [employer] Phone: evaluation noteNo assessment information [facility] Work Phone: Evaluation noteNo InformationNortGeising[facility] [employer] Other Evaluation note* Diagnosis Acute pharyngitis, unspecified etiology- Primary documented in this encounter [employer] Phone: evaluation note* Diagnosis Essential hypertension Unspecified essential hypertension Palpitations Hypothyroidism, unspecified type Hyperlipidemia, unspecified hyperlipidemia type Vitamin D deficiency disease Unspecified vitamin D deficiency documented in this encounter [employer] Phone: evaluation note* Diagnosis Non-recurrent acute suppurative otitis media of left ear without spontaneous rupture of tympanic membrane- Primary Acute nonintractable headache, unspecified headache type documented in this encounter [employer] Phone: evaluation note* Diagnosis Chronic low back pain with right-sided sciatica, unspecified back pain laterality- Primary documented in this [facility]* Diagnosis Renal cyst Unspecified congenital cystic kidney disease documented in this encounter [facility]* Diagnosis Bruxism (teeth grinding)- Primary Other specified psychophysiological malfunction Acute suppurative otitis media of left ear without spontaneous rupture of tympanic membrane, recurrence not specified ROSETTE on CPAP Hearing loss, unspecified hearing loss type, unspecified laterality [facility] Diagnosis Sensorineural hearing loss, bilateral- Primary Hearing loss, unspecified hearing loss type, unspecified laterality [facility]* Diagnosis COVID-19 virus infection- Primary documented in this encounter [facility]* Diagnosis New onset atrial fibrillation (HCC)- Primary Atrial fibrillation Atrial fibrillation with RVR (HCC) Atrial fibrillation History of chronic kidney disease Personal history of other disorder of urinary system Symptoms of dehydration Fluid level behind tympanic membrane of both ears Acute pansinusitis, recurrence not specified Nausea vomiting and diarrhea Nausea with vomiting documented in this encounter [employer] note* Diagnosis Paroxysmal atrial fibrillation (HCC)- Primary Atrial fibrillation documented in this encounter [facility] general Narrative - Reported* Type Description Date [...] History Epidural injections Hospitalization History see above [employer] Other History general Narrative - Reported* Type [...] cuff tear repair Hospitalization History see above [employer] Other Hospital Discharge instructions* Attachments The following attachments cannot be sent through Care Everywhere. * Diarrhea (Nigerian) documented in this [employer] Phone: Hospital Discharge instructions* Attachments The following attachments cannot be sent through Care Everywhere. * Fatigue (Nigerian) * Diarrhea (Nigerian) * Stress Incontinence: Female (Nigerian) * Urge Incontinence: Female (Nigerian) documented in this [employer] Phone: Hospital Discharge instructions* Attachments The following attachments cannot be sent through Care Everywhere. * UTI (Urinary Tract Infection): Female (Nigerian) * Vaginal Yeast Infection (Nigerian) documented in this [employer] Phone: Hospital Discharge instructions No data available for this section [facility] Hospital Discharge instructions* Attachments The following attachments cannot be sent through Care Everywhere. * Otitis Media (Nigerian) * Headache (Nigerian) [facility] [employer] Work Phone: Hospital Discharge instructions* Attachments The following attachments cannot be sent through Care Everywhere. * Coronavirus Disease (COVID-19): General Info (Nigerian) [facility]* Attachments The following attachments cannot be sent through Care Everywhere. * Supraventricular Tachycardia (Nigerian) documented in [facility] note No data available for this section [facility] Summary Purpose Family History No [...] FoundDocuments on File Type Date Recorded 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 And Tester Expl anation Advance Directives and Livin g Will Advance Directives and Livin g Will 03/01/2016 1:57 PM Power of Surveyor Hydrograph[employer] Power of Surveyor Hydrograph[employer] 03/01/2016 1:57 PM Latest Code Status on File Code Status Date Activated Date Inactivated Comments Full Code 02/21/2015 1:32 PM 02/21/2015 5:10 PM Full Code 02/21/2015 12:11 PM 02/21/2015 1:32 PM Full Code 01/31/2015 10:04 AM 01/31/2015 12:51 PM Full Code 01/31/2015 8:49 AM 01/31/2015 10:04 AM Full Code 04/30/2012 8:28 AM 04/30/2012 3:52 PM Documents on File Type Date Recorded 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 Expl anation Advance Directives and Livin g Will Advance Directives and Livin g Will 03/01/2016 1:57 PM Power of Surveyor Hydrographic Power of Surveyor Hydrograph[employer] 03/01/2016 1:57 PM Latest Code Status on File Code Status Date Activated Date Inactivated Comments Full Code 02/21/2015 1:32 PM 02/21/2015 5:10 PM Full Code 02/21/2015 12:11 PM 02/21/2015 1:32 PM Full Code 01/31/2015 10:04 AM 01/31/2015 12:51 PM Full Code 01/31/2015 8:49 AM 01/31/2015 10:04 AM Full Code 04/30/2012 8:28 AM 04/30/2012 3:52 PM Documents on File Type Date Recorded 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 And Tester Expl anation ACP-Advance Directive ACP-Advance Directive 03/01/2016 1:57 PM ACP-Power of Surveyor Hydrographic ACP-Power of Surveyor Hydrographic 03/01/2016 1:57 PM Documents on File Type Date Recorded 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 And Tester Expl anation ACP-Advance Directive ACP-Advance Directive 03/01/2016 1:57 PM ACP-Power of Surveyor Hydrographic ACP-Power of Surveyor Hydrograph[employer] 03/01/2016 1:57 PM Documents on File Type Date Recorded 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 And Tester Expl anation ACP-Advance Directive ACP-Power of Surveyor Hydrographic ACP-Advance Directive 03/01/2016 1:57 PM ACP-Power of Surveyor [employer] 03/01/2016 1:57 PM Documents on File Type Date Recorded 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 And Tester Expl anation ACP-Advance Directive ACP-Power of Surveyor Hydrographic ACP-Advance Directive 03/01/2016 1:57 PM ACP-Power of Surveyor [employer]graph[employer] 03/01/2016 1:57 PM Healthcare Agents on File [...] Documents on File Type Date Recorded 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 And Tester Expl anation ACP-Advance Directive 03/01/2016 1:57 PM ACP-Power of Surveyor Hydrograph[employer] 03/01/2016 1:57 PM Healthcare Agents on File Name Relationship Healthcare Agent Relationshi p Communication Adeel Athy Spouse Primary Decision Maker Advance Directive Response Recorded Date/ Time Advance Directives No April 22, 2017 3:57pm Advance Directive Response Recorded Date/ Time Advance Directives No April 22, 2017 2:57pm Documents on File Type Date Recorded 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 And Tester Expl anation ACP-Advance Directive 03/01/2016 1:57 PM ACP-Power of Surveyor [employer] 03/01/2016 1:57 PM Healthcare Agents on File [...] Documents on File Type Date Recorded 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 And Tester Expl anation ACP-Power of Surveyor Hydrographic 03/01/2016 1:57 PM ACP-Advance Directive 03/01/2016 1:57 [...] Documents on File Type Date Recorded 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 And Tester Expl anation ACP-Power of Surveyor Hydrographic 03/01/2016 1:57 PM ACP-Advance Directive 03/01/2016 1:57 [...] be sent through Care Everywhere. * Sinusitis (Nigerian) documented in this encounter* Attachments The following attachments cannot be sent through Care Everywhere. * Fatigue (Nigerian) * Vertigo (Nigerian) documented in this encounter Assessments Diagnosis Acute [...] EKG 12 Lead Reagan Pascal MD [address] [place] [address] Status Reason Specialty Diagnoses / Procedures Referre d By Contact Referred To Contact Closed Radiology Diagnoses Screening mammogram, encounter for Procedures ANA WU DIGITAL SCREEN BILATERAL Roni Dahl MD [address] [place] [address] [facility] [address] [place] [phone] Specialty Diagnoses / Procedures Referred By Contac t Referred To Contact Cardiology Diagnoses Essential hypertension Palpitations Hypothyroidism, unspecified type Hyperlipidemia, unspecified hyperlipidemia type Vitamin D deficiency disease Procedures EKG 12 Lead Reagan Pascal MD [address] [place] [id number] Referral ID Status Reason Start Date Expiration Date Visits Re quested Visits Authorized [id number] Open 09/06/2021 09/06/2022 1 1 Status Reason Specialty Diagnoses / Procedures Referre d By Contact Referred To Contact Open Cardiology Diagnoses Essential hypertension Pure hypercholesterolemia Acquired hypothyroidism Palpitations Vitamin D deficiency disease Procedures EKG 12 Lead Reagan Pascal MD [address] [place] [id number] Specialty Diagnoses / Procedures Referred By Contac t Referred To Contact Radiology Diagnoses Visit for screening mammogram Procedures [facility] WU DIGITAL SCREEN BILATERAL Roni Dahl MD [address] [place] [address] Referral ID Status Reason Start Date Expiration Date Visits Re quested Visits Authorized [id number] Closed 01/25/2022 01/25/2023 1 1 Specialty Diagnoses / Procedures Referred By Contac t Referred To Contact Radiology Diagnoses Renal cyst Procedures US RENAL LIMITED Yanelis Guzman MD [address] [place] [address], [address] [place] [address] Referral ID Status Reason Start Date Expiration Date Visits Re quested Visits Authorized [id number] Open 03/13/2023 03/12/2024 1 1 Specialty Diagnoses / Procedures Referred By Contac t Referred To Contact Audiology Diagnoses Hearing loss, unspecified hearing loss type, unspecified laterality Grayson Hutchinson Jr., DO [address] [place] [address] Mary Sue, [place] [address] [place] [address] Referral ID Status Reason Start Date Expiration Date V isits Requested Visits Authorized [id number] Closed Specialty Services Required/Flower ent's Best Interest 05/02/2023 05/01/2024 1 1 Specialty Diagnoses / Procedures Referred By Juan Manuel garibay Referred To Contact Cardiology Diagnoses New onset atrial fibrillation (HCC) Atrial fibrillation with RVR (HCC) Procedures 90993 - NM Single/Multiple Event Recorder Lexy Tapia MD [address] [place] [address] [place] [address] Referral ID Status Reason Start Date Expiration Date Visits Re quested Visits Authorized [id number] Open 10/23/2023 10/22/2024 1 1 Chief Complaint [...] section and content) DATE CREATED AUTHOR 12/24/2017 [facility] DATE CREATED AUTHOR AUTHOR'S ORGANIZ ATION 03/27/2018 [facility] DATE CREATED AUTHOR AUTHOR'S ORGANIZ ATION 07/13/2021 [facility] dical Specialist DATE CREATED AUTHOR AUTHOR'S ORGANIZ ATION 03/17/2023 Antoinette Montilla pitzeina DATE CREATED AUTHOR AUTHOR'S ORGANIZ ATION 04/13/2023 [facility] DATE CREATED AUTHOR AUTHOR'S ORGANIZ ATION 05/06/2023 [facility] DATE CREATED AUTHOR AUTHOR'S ORGANIZ ATION 12/13/2023 Antoinette Monsivais [facility] DATE CREATED AUTHOR AUTHOR'S ORGANIZ ATION 01/17/2024 [facility] DATE CREATED AUTHOR AUTHOR'S ORGANIZ ATION 02/12/2024 [facility] DATE CREATED AUTHOR AUTHOR'S ORGANIZ ATION 04/15/2024 [facility] Reason for Visit (unrecogniz ed section and [...] SCREENING AUGMENTED BILATERAL [facility] MAMMO[facility] DIGITAL SCREEN BILAT Roni Dahl MD [address] [place] [phone] [facility] [address] [place] [address] Reason Comments Illness Pt has not been [...] DIGITAL SCREEN BILATERAL Roni Dahl MD [address] [place] [address] [facility] [address] [place] [address] Status Reason Specialty Diagnoses / Procedures Referred By Contact Referred To Contact Open Physical Therapy Diagnoses Shoulder pain, right Procedures physical therapy Mitch, Angelito Camarillo, DO [address] [place] [address] Zo Chen, PT [address] [place] [address] Specialty Diagnoses / Procedures Referred By Juan Manuel garibay Referred To Contact Physical Therapy Diagnoses Shoulder pain, right Procedures physical therapy Angelito Meyer, DO [address] [place] [address] Zo Chen, PT [address] [place] [address] Referral ID Status Reason Start Date Expiration Date Visits Re quested Visits Authorized [id number] Open 04/28/2021 04/28/2022 99 99 Reason Comments Urinary Tract Infection Pt states that s he has been having painful urination x 10 days. Specialty Diagnoses / Procedures Referred By Juan Manuel garibay Referred To Contact Radiology Diagnoses Visit for screening mammogram Procedures ANA WU DIGITAL SCREEN BILATERAL Roni Dahl MD [address] [place] [address] Referral ID Status Reason Start Date Expiration Date Visits Re quested Visits Authorized [id number] Closed 01/25/2022 01/25/2023 1 1 Reason Comments [...] working in the garden. Patient seen at [facility] this past Saturday and given cortisone/ muscle relaxer. Patient unable to relieve pain. 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 Patient states she has had left ear infections for most of her life. She was treated for ear infection with Augmentin in October. 3 weeks ago, woke up with extreme pain and was treated again for b/l ear infection. She returned to [employer] and was told that her ear was still infected. Last hearing test several years ago in [place]. 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 Saw Gann in 2019. Specialty Diagnoses / Procedures Referred By Juan Manuel garibay Referred To Contact Otolaryngology Diagnoses Acute suppurative otitis media of left ear without spontaneous rupture of tympanic membrane, recurrence not specified Andre Rowe, [employer] [address] [place] [address] Grayson Hutchinson Jr., DO [address] [place] [address] Referral ID Status Reason Start Date Expiration Date V isits Requested Visits Authorized [id number] Closed Specialty Services Required/Flower ent's Best Interest 04/24/2023 04/23/2024 1 1 Specialty Diagnoses / Procedures Referred By Juan Manuel garibay Referred To Contact Audiology Diagnoses Hearing loss, unspecified hearing loss type, unspecified laterality Grayson Hutchinson Jr., DO [address] [place] [address] [place]Castano Mary, AuD [address] [place] [address] Referral ID Status Reason Start Date Expiration Date V isits Requested Visits Authorized [id number] Closed Specialty Services Required/Flower ent's Best Interest [...] Start Date End Da te nystatin (MYCOSTATIN) 101015 UNIT/ML suspension Take 5 mLs by mouth 4 times daily Swish and swallow. 200 mL 0 11/25/2022 amoxicillin-clavulanate (AUGMENTIN) 875-125 MG per tablet Take 1 tablet by mouth 2 times daily for 10 days 20 tablet 0 11/25/2022 12/05/2022 nystatin (MYCOSTATIN) 887265 UNIT/ML suspension Take 5 mLs by mouth [...] on the AUG. 1448 (Furnished to P [facility]: Emily Choi RN) Scheduled [...] ONCE, 1 dose, On Shannan 11/14/23 at 191 191 (Given - Provid er: Maria R Love, MARIFER) metoprolol (LOPRESSOR) injection 5 mg (COMPLETED) 5 mg, IntraVENous, ONCE, 1 dose, On Shannan 11/14/23 at 2014 2012 (Given - Provid er: Maria R Love, MARIFER) metoprolol tartrate (LOPRESSOR) tablet 50 mg (COMPLETED) [...] Care Teams (unrecognized sec tion and content) Price Checker Relationship Specialty Start Date End Date Roni Dahl MD [address] [place] [address] [id number] PCP - General 07/15/12 Price Checker Relationship Specialty Start Date End Date Roni Dahl MD [address] [place] [address] [id number] PCP - General 07/15/12 Price Checker Relationship Specialty Start Date End Date Roni Dahl MD [address] [place] [address] [phone] PCP - General 07/15/12 Price Checker Relationship Specialty Start Date End Date Roni Dahl MD [address] [place] [address] [id number] PCP - General 07/15/12 Price Checker Relationship Specialty Start Date End Date Roni Dahl MD [address] [place] [address] [id number] PCP - General 07/15/12 Price Checker Relationship Specialty Start Date End Date Roni Dahl MD [address] [place] [address] [id number] PCP - General 07/15/12 Price Checker Relationship Specialty Start Date End Date Roni Dahl MD [address] [place] [address] [id number] PCP - General 07/15/12 Price Checker Relationship Specialty Start Date End Date Roni Dahl MD [address] [place], [place] [phone] PCP - General 07/15/12 Price Checker Relationship Specialty Start Date End Date Roni Dahl MD [address] [place], [place] [phone] PCP - General 07/15/12 Price Checker Relationship Specialty Start Date End Date Roni Dahl MD [address] [place], [place] [phone] PCP - General 07/15/12 Price Checker Relationship Specialty Start Date End Date Roni Dahl MD [address] [place], [place] [phone] PCP - General 07/15/12 Price Checker Relationship Specialty Start Date End Date Roni Dahl MD [address] [place], [place] [phone] PCP - General 07/15/12 Team Status: Inactive [...] Active Yanelis Garcia MD Attending Provider Active Price Checker Relationship Specialty Start Date End Date Roni Dahl MD [address] [place], [place] [phone] PCP - General 07/15/12 Price Checker Relationship Specialty Start Date End Date Roni Dahl MD [address] [place], [place] [phone] PCP - General 07/15/12 Price Checker Relationship Specialty Start Date End Date Roni Dahl MD [address] [place] [id number] PCP - General 07/15/12 Price Checker Relationship Specialty Start Date End Date Roni Dahl MD [address] [place] [address] PCP - General 07/15/12 Price Checker Relationship Specialty Start Date End Date Roni Dahl MD [address] [place] [id number] PCP - General 07/15/12 Team Status: Inactive Member Role Status Dates Roni Dahl MD Primary Care Provider Active Jesus Vasquez APRN Emergency Provider Active Price Checker Relationship Specialty Start Date End Date Roni Dahl MD [address] [place] [address] PCP - General 07/15/12 Team Status: Inactive Member Role Status Dates Roni Dahl MD Primary Care Provider Active Mukul Wilson MD Attending Provider Active Price Checker Relationship Specialty Start Date End Date Roni Dahl MD [address] [place] [id number] PCP - General 07/15/12 Price Checker Relationship Specialty Start Date End Date Roni Dahl MD [address] [place] [address] [id number] PCP - General Family Medicine 04/24/23 Price Checker Relationship Specialty Start Date End Date Roni Dahl MD [address] [place] [phone] PCP - General Family Medicine 04/24/23 Team Status: Inactive Member Role Status Dates Roni Dahl MD Primary Care Provider Active Obie Hylton MD Attending Provider Active Price Checker Relationship Specialty Start Date End Date Roni Dahl MD [address] [place] [address] PCP - General 07/15/12 Team Status: Inactive Member Role Status Dates Roni Dahl MD Primary Care Provider Active Start: September 19, 2023 End: September 19, 2023 DENISHA Cedeño Attending Provider Active Start: September 19, 2023 End: September 19, 2023 Price Checker Relationship Specialty Start Date End Date Roni Dahl MD [address] [place] [address] PCP General 07/15/12 Price Checker Relationship Specialty Start Date End Date Roni Dahl MD [address] [place] [address] PCP [facility] 07/15/12 Team Status: Inactive Member Role Status [...] BE BASED ON THE PRIMARY CLINICAL RECORDS. [facility] provides no warranty or guarantee of the accuracy or completeness of information in this document.
[2024-04-20 07:43] VITALS: BP 148/82; PULSE 73; TEMP 36.7; O2SAT 99
[2024-04-20 08:22] VITALS: BP 151/67; PULSE 62; O2SAT 98
[2024-04-20 08:23] VITALS: BP 147/68; PULSE 61; O2SAT 95
[2024-04-20] MEDS: BUPIVACAINE HCL 0.25% PF 25 MG/10 ML VIAL 4 ML INJ (08:26)
[2024-04-20] MEDS: TRIAMCINOLONE ACETONIDE 40 MG/ML VIAL 80 MG INJ (08:26)
[2024-04-20] MEDS: LIDOCAINE HCL 2% 400 MG/20 ML MDV 16 ML INJ (08:26)
--- NOTE | 2024-04-20 08:40 | P.ON_ITS ---
Date of procedure: 04/20/24 Pre-op diagnosis: Pain due to lumbar spondylosis without myelopathy Post-op diagnosis: same as pre-op Procedure: Procedure: Bilateral L4-5, L5-S1 radiofrequency ablation Medications: Bupivacaine 0.25% 6cc, lidocaine 2% 6cc, kenalog 80mg The patient was seen and examined in the preoperative holding area.? The site was marked.? Written informed consent was obtained and placed on the chart.? The patient was brought to the medical procedure unit and placed in the prone position.? A timeout was completed verifying correct patient, procedure, positioning, and special requirements.? The skin overlying the target points, the designated medial branch, were prepped and draped in the usual sterile fashion.? The target point was achieved with a 20-gauge 15 cm with a 10 mm curved active tip radiofrequency cannula under direct fluoroscopic visualization.? The needle was inserted at level L4 on the right side. Needle tip position was confirmed with lateral fluoroscopic position.? Motor stimulation was carried out at 2 Hz up to 5 volts with the absence of extremity activity.? This was repeated at level L5, S1 on right side.?? Sensory stimulation was carried out.? Concordant pain was realized at the above- mentioned sites.? Then radiofrequency lesioning was carried out times 90 seconds at 80 degrees times 2 lesions at each level.? The radiofrequency probe was removed prior to cannula removal.? The above-mentioned injectate was placed in 1 mL increments.? The needle was removed. The same procedure, with the same steps, was then completed on the left side at the same levels. Insertion sites were covered.? The patient was taken to the postoperative recovery area and monitored for an appropriate length of time before being found suitable for discharge in the company of a responsible adult. Anesthesia: Local Surgeon: Trevon Harris Pathology: none sent Condition: stable Disposition: no change
== END 2024-04-20 08:48 | disposition home or self-care (01) ==
LOC: SURGOUT 07:29
PROVIDERS: PCP Family Medicine; Visit Provider Anesthesiology
DX: M47.816 Spondylosis without myelopathy or radiculopathy, lumbar region (principal)
CPT/HCPCS: 64635; 64636; J0665; J3301

== ENCOUNTER 2024-05-06 14:39 | Outpatient (OUT) | payer MEDICARE, SELFPAY ==
--- NOTE | 2024-05-06 15:26 | P.CN_ITS ---
Consult Note: HPI Data of Consult Patient: known to practice within the last 3 years Consult date: 08/26/23 Requesting Physician: Gabrielle Boswell NP Primary Care Provider: RONI YEE Consult Narrative Reason for consult: Low back, bilateral leg pain, neck pain Narrative: 77yof who presents for evaluation. Longstanding low back and bilateral lower extremity pain. Lumbar imaging shows multilevel facet and disc degeneration, as well as several levels of stenosis, particularly at L4-5 and L5-S1. Continues in provider directed home exercises and therapy exercises >6 weeks. Has tried tylenol, NSAIDs, tramadol. Denies adverse med side effects. Low back pain 9/10 knife, stabbing, ache increasing to 10/10 with standing, walking, twisting, pushing, pulling, stairs, and all activity. Patient previously underwent bilateral L5-S1 TFESI and right SIJ injection with >50% improvement for 3 months. Patient would like to discuss repeat TFESI and potentially SIJ injection. cc:: CC: Gabrielle Boswell NP Review of Systems ROS Status of ROS 10 or more systems reviewed and unremark able except as noted in history and below Musculoskeletal Reports: back pain, extremity pain and joint pain PFSH PFSH Medical History Irregular heartbeat ?I49.9 - Cardiac arrhythmia, unspecified (ICD-10) Sleep apnea ?G47.30 - Sleep apnea, unspecified (ICD-10) Hiatal hernia ?K44.9 - Diaphragmatic hernia without obstruction or gangrene (ICD-10) Acid reflux ?K21.9 - Gastro-esophageal reflux disease without esophagitis (ICD-10) Osteoarthritis ?M19.90 - Unspecified osteoarthritis, unspecified site (ICD-10) TMJ (dislocation of temporomandibular joint) ?S03.00XA - Dislocation of jaw, unspecified side, initial encounter (ICD-10) Hypothyroid ?E03.9 - Hypothyroidism, unspecified (ICD-10) Surgical History History of bladder surgery ?Z98.890 - Other specified postprocedural states (ICD-10) History of knee replacement ?Z96.659 - Presence of unspecified artificial knee joint (ICD-10) History of hip replacement ?Z96.649 - Presence of unspecified artificial hip joint (ICD-10) History of cholecystectomy ?Z90.49 - Acquired absence of other specified parts of digestive tract (ICD- 10) History of ankle surgery ?Z98.890 - Other specified postprocedural states (ICD-10) H/O: hysterectomy ?Z90.710 - Acquired absence of both cervix and uterus (ICD-10) H/O hernia repair ?Z98.890 - Other specified postprocedural states (ICD-10) ?Z87.19 - Personal history of other diseases of the digestive system (ICD-10) Meds Home Medications and Allergies Home Medications ?Medication ?Instructions ?Recorded ?Confirmed ?Type aspirin 81 mg capsule 81 mg PO DAILY 08/26/23 04/20/24 History calcium-magnesium 300 mg-300 mg 1 tab PO DAILY 08/26/23 04/20/24 History tablet cholecalciferol (vitamin D3) 50 50 mcg PO BID 08/26/23 04/20/24 History mcg (2,000 unit) capsule citalopram 20 mg tablet 20 mg PO DAILY 08/26/23 04/20/24 History cyanocobalamin (vitamin B-12) 1,000 mcg PO DAILY 08/26/23 04/20/24 History 1,000 mcg capsule docusate sodium 100 mg capsule 100 mg PO DAILY 08/26/23 04/20/24 History estradiol 0.01% (0.1 mg/gram) 1 g vaginal QWEEK 08/26/23 04/20/24 History vaginal cream fexofenadine 180 mg tablet 180 mg PO DAILY 08/26/23 04/20/24 History fluticasone propionate 50 1 spray intranasal DAILY PRN 08/26/23 04/20/24 History mcg/actuation nasal allergy symptoms spray,suspension levothyroxine 50 mcg capsule 50 mcg PO DAILY 08/26/23 04/20/24 History pilocarpine HCl 5 mg tablet 5 mg PO TID 08/26/23 04/20/24 History pravastatin 40 mg tablet 40 mg PO DAILY 08/26/23 04/20/24 History psyllium husk 0.4 gram capsule 0.4 g PO DAILY 08/26/23 04/20/24 History (Metamucil) topiramate 50 mg tablet 50 mg PO DAILY 08/26/23 04/20/24 History apixaban 5 mg tablet (Eliquis) 5 mg PO BID 02/03/24 04/20/24 History diltiazem HCl 120 mg 120 mg PO Q24H 03/25/24 04/20/24 History capsule,extended release 24 hr Allergies Allergy/AdvReac Type Severity Reaction Status Date / Time latex Allergy Irritable Verified 04/20/24 07:45 morphine Allergy Vomiting Verified 04/20/24 07:45 Sulfa (Sulfonamide Allergy Rash Verified 04/20/24 07:45 Antibiotics) Exam Constitutional Documenting provider has reviewed patient's vital signs: yes Common normals: no apparent distress, oriented x3, healthy appearing, alert and well nourished General appearance: cooperative HENMT Common normals: normocephalic, hearing grossly normal bilaterally and moist oral mucous membranes Head and scalp: normocephalic Eye Common normals: PERRL Pupil: PERRL Neck & C-Spine Common normals: full ROM General: normal visual inspection Chest Common normals: inspection of chest normal Respiratory Common normals: normal respiratory effort, no retractions and no use of accessory muscles Back & Pelvis Lumbar spine/lower back: normal to inspection, ROM limited, pain with ROM and straight leg raise positive right Sacroiliac joints: SI joint(s) abnormal Other: increased pain with bilateral facet loading strength 4/5 in RLE 5/5 in LLE decreased sensation to right L4,5,s1 positive right SIJ exam, thomas(patricks), gaenslens, thigh thrust, compression test Extremity Common normals: normal to inspection and full ROM Neuro Common normals: oriented x3, CN's II-XII intact bilaterally, moves all extremities, no focal motor deficits, no sensory deficits noted and deep tendon reflexes 2+ bilaterally Sensorium/orientation: alert Motor exam: strength 5/5 throughout and no movement abnormalities noted Psych Common normals: mental status grossly normal, thought process normal, cooperative, affect normal, speech normal and activity/motor behavior normal Speech: normal speech Thought process: normal thought process Results Additional Findings Additional findings: If on a controlled substance or opioids, I have checked an [place]AR[place] report on this patient and there are no aberrancies noted in the prescribing history.??If on a controlled substance or opioid a drug screen was completed and reviewed within the last year, and if there has not been a drug screen completed we ordered one today to monitor higher risk, state monitored pain medication use. As part of providing excellent, safe, comprehensive care, the following was completed at our patient's visit: 1. A medication reconciliation and review to ensure accurate knowledge of current/active medications, including asking our patients to inform us about any rtxn-ncs-kecohib medications or herbal remedies/nutritional supp lements/alternative remedies. 2. A review to specifically ensure our patients have had annual screening for screening for depression, screening for tobacco use, and screening for unhealthy alcohol use. For concerning screenings had a discussion with the patient, provided patient education, and recommended follow-up with primary care provider when appropriate. If patient noted with a risk of falling, they received education on strength, gait, and balance training to prevent future risk of falling. Assessment and Plan Assessment and Plan (1) Lumbar stenosis with neurogenic claudication: (2) Sacroiliitis: (3) Lumbar spondylosis: Plan right L4-5 L5-S1 TFESI under fluoroscopy for lumbar stenosis with NC, consider right SIJ injection if needed continue current medications continue HEP as tolerated f/u after injection
== END 2024-05-06 14:40 | disposition home or self-care (01) ==
LOC: PM 14:40
PROVIDERS: PCP Family Medicine; Visit Provider Nurse Practitioner
DX: M48.062 Spinal stenosis, lumbar region with neurogenic claudication (principal); M46.1 Sacroiliitis, not elsewhere classified; M47.816 Spondylosis without myelopathy or radiculopathy, lumbar region
CPT/HCPCS: G0463

== ENCOUNTER 2024-05-18 10:24 | Day surgery (SDC) | payer MEDICARE, SELFPAY ==
[2024-05-18 11:33] VITALS: BP 144/74; PULSE 62; TEMP 36.3; O2SAT 100
[2024-05-18 12:15] VITALS: BP 184/80; PULSE 62; O2SAT 99
[2024-05-18 12:16] VITALS: PULSE 60; O2SAT 98
[2024-05-18] MEDS: 0.9 % SODIUM CHLORIDE 10 ML SYRINGE - SALINE FLUSH INJ (12:17)
[2024-05-18] MEDS: TRIAMCINOLONE ACETONIDE 40 MG/ML VIAL 80 MG INJ (12:18)
[2024-05-18] MEDS: BUPIVACAINE HCL 0.25% PF 25 MG/10 ML VIAL INJ (12:18)
[2024-05-18] MEDS: IOHEXOL 240 MG/ML - 10 ML VIAL INJ (12:18)
[2024-05-18 12:19] VITALS: BP 168/60
--- NOTE | 2024-05-18 12:19 | P.ON_ITS ---
Date of procedure: 05/18/24 Pre-op diagnosis: Pain due to lumbar stenosis with neurogenic claudication Post-op diagnosis: same as pre-op Procedure: Procedure: Right L4-5, L5-S1 transforaminal epidural steroid injection Medications: Bupivacaine 0.25% 2cc, lidocaine 2% 1cc, kenalog 80mg The patient was seen and examined in the preoperative holding area.? Informed consent was obtained and placed on the chart.? Patient was brought to the medical procedure unit and placed in the prone position where a timeout was completed verifying the correct patient, procedure site, position, and planned special equipment using sterile aseptic technique.? Under direct fluoroscopic visualization a 25-gauge Quincke tipped spinal needle was advanced to the designated neural foramen where contrast dye was injected to show adequate spread.? The needle was inserted at level right L4-5. There was no evidence of vascular or adverse uptake.? Epidural spread was appreciated.? The above- mentioned injectate was then placed in a 1.5 mL aliquot preceded by negative aspiration.? The needle was removed. The needle was inserted and the procedure repeated at level right L5-S1.? The surgery site was covered.? Patient was taken to the postprocedural recovery area and monitored for an appropriate length of time before found suitable for discharge in the accompaniment of a responsible adult. Anesthesia: Local Surgeon: Trevon Harris Pathology: none sent Condition: stable Disposition: no change
== END 2024-05-18 12:50 | disposition home or self-care (01) ==
LOC: SURGOUT 10:26
PROVIDERS: PCP Family Medicine; Visit Provider Anesthesiology
DX: M48.062 Spinal stenosis, lumbar region with neurogenic claudication (principal)
CPT/HCPCS: 64483; 64484; J0665; J3301; Q9966

== ENCOUNTER 2024-05-27 08:21 | Outpatient (OUT) | payer MEDICARE, SELFPAY ==
--- NOTE | 2024-05-27 08:49 | P.CN_ITS ---
Consult Note: HPI Data of Consult Patient: known to practice within the last 3 years Consult date: 08/26/23 Requesting Physician: Gabrielle Boswell NP Primary Care Provider: RONI YEE Consult Narrative Reason for consult: Low back, bilateral leg pain, neck pain Narrative: 77yof who presents for evaluation. Longstanding low back and bilateral lower extremity pain. Lumbar imaging shows multilevel facet and disc degeneration, as well as several levels of stenosis, particularly at L4-5 and L5-S1. Continues in provider directed home exercises and therapy exercises >6 weeks. Has tried tylenol, NSAIDs, tramadol. Denies adverse med side effects. Low back pain 5/10 knife, stabbing, ache increasing to 10/10 with standing, walking, twisting, pushing, pulling, stairs, and all activity. Patient recently underwent right L4- 5 L5-S1 TFESI with >50% improvement ongoing in radicular pain, continues to have moderate to severe SIJ pain cc:: CC: Gabrielle Boswell NP Review of Systems ROS Status of ROS 10 or more systems reviewed and unremark able except as noted in history and below Musculoskeletal Reports: back pain and joint pain PFSH PFS Medical History Irregular heartbeat ?I49.9 - Cardiac arrhythmia, unspecified (ICD-10) Sleep apnea ?G47.30 - Sleep apnea, unspecified (ICD-10) Hiatal hernia ?K44.9 - Diaphragmatic hernia without obstruction or gangrene (ICD-10) Acid reflux ?K21.9 - Gastro-esophageal reflux disease without esophagitis (ICD-10) Osteoarthritis ?M19.90 - Unspecified osteoarthritis, unspecified site (ICD-10) TMJ (dislocation of temporomandibular joint) ?S03.00XA - Dislocation of jaw, unspecified side, initial encounter (ICD-10) Hypothyroid ?E03.9 - Hypothyroidism, unspecified (ICD-10) Surgical History History of bladder surgery ?Z98.890 - Other specified postprocedural states (ICD-10) History of knee replacement ?Z96.659 - Presence of unspecified artificial knee joint (ICD-10) History of hip replacement ?Z96.649 - Presence of unspecified artificial hip joint (ICD-10) History of cholecystectomy ?Z90.49 - Acquired absence of other specified parts of digestive tract (ICD- 10) History of ankle surgery ?Z98.890 - Other specified postprocedural states (ICD-10) H/O: hysterectomy ?Z90.710 - Acquired absence of both cervix and uterus (ICD-10) H/O hernia repair ?Z98.890 - Other specified postprocedural states (ICD-10) ?Z87.19 - Personal history of other diseases of the digestive system (ICD-10) Meds Home Medications and Allergies Home Medications ?Medication ?Instructions ?Recorded ?Confirmed ?Type aspirin 81 mg capsule 81 mg PO DAILY 08/26/23 05/18/24 History calcium-magnesium 300 mg-300 mg 1 tab PO DAILY 08/26/23 05/18/24 History tablet cholecalciferol (vitamin D3) 50 50 mcg PO BID 08/26/23 05/18/24 History mcg (2,000 unit) capsule citalopram 20 mg tablet 20 mg PO DAILY 08/26/23 05/18/24 History cyanocobalamin (vitamin B-12) 1,000 mcg PO DAILY 08/26/23 05/18/24 History 1,000 mcg capsule docusate sodium 100 mg capsule 100 mg PO DAILY 08/26/23 05/18/24 History estradiol 0.01% (0.1 mg/gram) 1 g vaginal QWEEK 08/26/23 05/18/24 History vaginal cream fexofenadine 180 mg tablet 180 mg PO DAILY 08/26/23 05/18/24 History fluticasone propionate 50 1 spray intranasal DAILY PRN 08/26/23 05/18/24 History mcg/actuation nasal allergy symptoms spray,suspension levothyroxine 50 mcg capsule 50 mcg PO DAILY 08/26/23 05/18/24 History pilocarpine HCl 5 mg tablet 5 mg PO TID 08/26/23 05/18/24 History pravastatin 40 mg tablet 40 mg PO DAILY 08/26/23 05/18/24 History psyllium husk 0.4 gram capsule 0.4 g PO DAILY 08/26/23 05/18/24 History (Metamucil) topiramate 50 mg tablet 50 mg PO DAILY 08/26/23 05/18/24 History apixaban 5 mg tablet (Eliquis) 5 mg PO BID 02/03/24 05/18/24 History diltiazem HCl 120 mg 120 mg PO Q24H 03/25/24 05/18/24 History capsule,extended release 24 hr Allergies Allergy/AdvReac Type Severity Reaction Status Date / Time latex Allergy Irritable Verified 05/18/24 11:35 morphine Allergy Vomiting Verified 05/18/24 11:35 Sulfa (Sulfonamide Allergy Rash Verified 05/18/24 11:35 Antibiotics) Exam Constitutional Documenting provider has reviewed patient's vital signs: yes Common normals: no apparent distress, oriented x3, healthy appearing, alert and well nourished General appearance: cooperative HENMT Common normals: normocephalic, hearing grossly normal bilaterally and moist oral mucous membranes Head and scalp: normocephalic Eye Common normals: PERRL Pupil: PERRL Neck & C-Spine Common normals: full ROM General: normal visual inspection Chest Common normals: inspection of chest normal Respiratory Common normals: normal respiratory effort, no retractions and no use of accessory muscles Back & Pelvis Lumbar spine/lower back: normal to inspection, ROM limited, pain with ROM and straight leg raise negative bilaterally Sacroiliac joints: SI joint(s) abnormal Other: strength 5/5 in BLE positive right SIJ exam, thomas(patricks), gaenslens, thigh thrust, compression test Extremity Common normals: normal to inspection and full ROM Neuro Common normals: oriented x3, CN's II-XII intact bilaterally, moves all extremities, no focal motor deficits, no sensory deficits noted and deep tendon reflexes 2+ bilaterally Sensorium/orientation: alert Motor exam: strength 5/5 throughout and no movement abnormalities noted Psych Common normals: mental status grossly normal, thought process normal, cooperative, affect normal, speech normal and activity/motor behavior normal Speech: normal speech Thought process: normal thought process Results Additional Findings Additional findings: If on a controlled substance or opioids, I have checked an [place]AR[place] report on this patient and there are no aberrancies noted in the prescribing history.??If on a controlled substance or opioid a drug screen was completed and reviewed within the last year, and if there has not been a drug screen completed we ordered one today to monitor higher risk, state monitored pain medication use. As part of providing excellent, safe, comprehensive care, the following was completed at our patient's visit: 1. A medication reconciliation and review to ensure accurate knowledge of current/active medications, including asking our patients to inform us about any [id number] medications or herbal remedies/nutritional supplements/alternative remedies. 2. A review to specifically ensure our patients have had annual screening for screening for depression, screening for tobacco use, and screening for unhealthy alcohol use. For concerning screenings had a discussion with the patient, provided patient education, and recommended follow-up with primary care provider when appropriate. If patient noted with a risk of falling, they received education on strength, gait, and balance training to prevent future risk of falling. Assessment and Plan Assessment and Plan (1) Sacroiliitis: (2) Lumbar spondylosis: (3) Lumbar stenosis with neurogenic claudication: Plan proceed with right SIJ injection under fluoroscopy continue HEP as tolerated start pregabalin 50mg HS, risks vs benefits reviewed f/u after injection
== END 2024-05-27 08:22 | disposition home or self-care (01) ==
PROVIDERS: PCP Family Medicine; Visit Provider Nurse Practitioner
DX: M46.1 Sacroiliitis, not elsewhere classified (principal); M47.816 Spondylosis without myelopathy or radiculopathy, lumbar region; M48.02 Spinal stenosis, cervical region
CPT/HCPCS: G0463

== ENCOUNTER 2024-06-01 08:06 | Day surgery (SDC) | payer MEDICARE, SELFPAY ==
[2024-06-01 09:13] VITALS: BP 117/65; PULSE 63; TEMP 36.2; O2SAT 97
[2024-06-01] MEDS: BUPIVACAINE HCL 0.25% PF 25 MG/10 ML VIAL 2 ML INJ (09:29)
[2024-06-01] MEDS: IOHEXOL 240 MG/ML - 10 ML VIAL 24 MG INJ (09:29)
[2024-06-01] MEDS: LIDOCAINE HCL 2% 400 MG/20 ML MDV INJ (09:29)
[2024-06-01 09:30] VITALS: BP 163/71; BP 167/75; PULSE 58; PULSE 59; O2SAT 6; O2SAT 96
[2024-06-01] MEDS: TRIAMCINOLONE ACETONIDE 40 MG/ML VIAL INJ (09:30)
--- NOTE | 2024-06-01 09:30 | W.PM.PROCNOT ---
Date of procedure: 06/01/24 Pre-op diagnosis: Pain due to right sacroiliitis Post-op diagnosis: same as pre-op Procedure: Procedure: Right sacroiliac joint injection Medications: Bupivacaine 0.25% 3cc, kenalog 40mg After informed consent was obtained, the patient was brought to the medical procedure unit and placed in the prone position, when a timeout was completed verifying correct patient, procedure, site, positioning, implant, and/or special equipment.? The skin overlying the area was prepped and draped in standard sterile fashion using alcohol.? A 25-gauge needle was inserted towards the right sacroiliac joint under direct fluoroscopic imaging.? Needle tip was advanced until the joint was encountered.? We instilled a total of 2 mL of solution.? Postoperatively needles were removed.? The patient tolerated the procedure well without complication.? The patient reported reduction in pain symptoms postoperatively. Anesthesia: Local Surgeon: Trevon Harris Pathology: none sent Condition: stable Disposition: no change
== END 2024-06-01 09:36 | disposition home or self-care (01) ==
LOC: SURGOUT 08:06
PROVIDERS: PCP Family Medicine; Visit Provider Anesthesiology
DX: M46.1 Sacroiliitis, not elsewhere classified (principal)
CPT/HCPCS: 27096; J0665; J3301; Q9966

== ENCOUNTER 2024-06-11 08:01 | Outpatient (OUT) | payer MEDICARE, SELFPAY ==
--- NOTE | 2024-06-11 08:37 | P.CN_ITS ---
Consult Note: HPI Data of Consult Patient: known to practice within the last 3 years Consult date: 08/26/23 Requesting Physician: Gabrielle Boswell NP Primary Care Provider: RONI YEE Consult Narrative Reason for consult: Low back, bilateral leg pain, neck pain Narrative: 77yof who presents for evaluation. Longstanding low back and bilateral lower extremity pain. Lumbar imaging shows multilevel facet and disc degeneration, as well as several levels of stenosis, particularly at L4-5 and L5-S1. Continues in provider directed home exercises and therapy exercises >6 weeks. Has tried tylenol, NSAIDs, tramadol. Denies adverse med side effects. Low back pain 5/10 knife, stabbing, ache increasing to 10/10 with standing, walking, twisting, pushing, pulling, stairs, and all activity. Patient recently underwent right L4- 5 L5-S1 TFESI and right SIJ injection with mild relief overall. cc:: CC: Gabrielle Boswell NP Review of Systems ROS Status of ROS 10 or more systems reviewed and unremark able except as noted in history and below Musculoskeletal Reports: back pain and joint pain PFSH PFSH Medical History Irregular heartbeat ?I49.9 - Cardiac arrhythmia, unspecified (ICD-10) Sleep apnea ?G47.30 - Sleep apnea, unspecified (ICD-10) Hiatal hernia ?K44.9 - Diaphragmatic hernia without obstruction or gangrene (ICD-10) Acid reflux ?K21.9 - Gastro-esophageal reflux disease without esophagitis (ICD-10) Osteoarthritis ?M19.90 - Unspecified osteoarthritis, unspecified site (ICD-10) TMJ (dislocation of temporomandibular joint) ?S03.00XA - Dislocation of jaw, unspecified side, initial encounter (ICD-10) Hypothyroid ?E03.9 - Hypothyroidism, unspecified (ICD-10) Surgical History History of bladder surgery ?Z98.890 - Other specified postprocedural states (ICD-10) History of knee replacement ?Z96.659 - Presence of unspecified artificial knee joint (ICD-10) History of hip replacement ?Z96.649 - Presence of unspecified artificial hip joint (ICD-10) History of cholecystectomy ?Z90.49 - Acquired absence of other specified parts of digestive tract (ICD- 10) History of ankle surgery ?Z98.890 - Other specified postprocedural states (ICD-10) H/O: hysterectomy ?Z90.710 - Acquired absence of both cervix and uterus (ICD-10) H/O hernia repair ?Z98.890 - Other specified postprocedural states (ICD-10) ?Z87.19 - Personal history of other diseases of the digestive system (ICD-10) Meds Home Medications and Allergies Home Medications ?Medication ?Instructions ?Recorded ?Confirmed ?Type aspirin 81 mg capsule 81 mg PO DAILY 08/26/23 06/01/24 History calcium-magnesium 300 mg-300 mg 1 tab PO DAILY 08/26/23 06/01/24 History tablet cholecalciferol (vitamin D3) 50 50 mcg PO BID 08/26/23 06/01/24 History mcg (2,000 unit) capsule citalopram 20 mg tablet 20 mg PO DAILY 08/26/23 06/01/24 History cyanocobalamin (vitamin B-12) 1,000 mcg PO DAILY 08/26/23 06/01/24 History 1,000 mcg capsule docusate sodium 100 mg capsule 100 mg PO DAILY 08/26/23 06/01/24 History estradiol 0.01% (0.1 mg/gram) 1 g vaginal QWEEK 08/26/23 06/01/24 History vaginal cream fexofenadine 180 mg tablet 180 mg PO DAILY 08/26/23 06/01/24 History fluticasone propionate 50 1 spray intranasal DAILY PRN 08/26/23 06/01/24 History mcg/actuation nasal allergy symptoms spray,suspension levothyroxine 50 mcg capsule 50 mcg PO DAILY 08/26/23 06/01/24 History pilocarpine HCl 5 mg tablet 5 mg PO TID 08/26/23 06/01/24 History pravastatin 40 mg tablet 40 mg PO DAILY 08/26/23 06/01/24 History psyllium husk 0.4 gram capsule 0.4 g PO DAILY 08/26/23 06/01/24 History (Metamucil) topiramate 50 mg tablet 50 mg PO DAILY 08/26/23 06/01/24 History apixaban 5 mg tablet (Eliquis) 5 mg PO BID 02/03/24 06/01/24 History diltiazem HCl 120 mg 120 mg PO Q24H 03/25/24 06/01/24 History capsule,extended release 24 hr pregabalin 50 mg capsule 50 mg PO DAILY #30 caps 05/27/24 06/01/24 Rx pregabalin 50 mg capsule (Lyrica) 50 mg PO DAILY 06/01/24 06/01/24 History Allergies Allergy/AdvReac Type Severity Reaction Status Date / Time latex Allergy Irritable Verified 06/01/24 09:10 morphine Allergy Vomiting Verified 06/01/24 09:10 Sulfa (Sulfonamide Allergy Rash Verified 06/01/24 09:10 Antibiotics) Exam Constitutional Documenting provider has reviewed patient's vital signs: yes Common normals: no apparent distress, oriented x3, healthy appearing, alert and well nourished General appearance: cooperative [facility] Common normals: normocephalic, hearing grossly normal bilaterally and moist oral mucous membranes Head and scalp: normocephalic Eye Common normals: PERRL Pupil: PERRL Neck & C-Spine Common normals: full ROM General: normal visual inspection Chest Common normals: inspection of chest normal Respiratory Common normals: normal respiratory effort, no retractions and no use of accessory muscles Back & Pelvis Lumbar spine/lower back: normal to inspection, ROM limited, pain with ROM and straight leg raise negative bilaterally Sacroiliac joints: SI joint(s) abnormal Other: strength 5/5 in BLE positive right SIJ exam, thomas(patricks), gaenslens, thigh thrust, compression test Extremity Common normals: normal to inspection and full ROM Neuro Common normals: oriented x3, CN's II-XII intact bilaterally, moves all extremities, no focal motor deficits, no sensory deficits noted and deep tendon reflexes 2+ bilaterally Sensorium/orientation: alert Motor exam: strength 5/5 throughout and no movement abnormalities noted Psych Common normals: mental status grossly normal, thought process normal, cooperative, affect normal, speech normal and activity/motor behavior normal Speech: normal speech Thought process: normal thought process Results Additional Findings Additional findings: If on a controlled substance or opioids, I have checked an [place] report on this patient and there are no aberrancies noted in the prescribing history.??If on a controlled substance or opioid a drug screen was completed and reviewed within the last year, and if there has not been a drug screen completed we ordered one today to monitor higher risk, state monitored pain medication use. As part of providing excellent, safe, comprehensive care, the following was completed at our patient's visit: 1. A medication reconciliation and review to ensure accurate knowledge of current/active medications, including asking our patients to inform us about any [id number] medications or herbal remedies/nutritional supplements/alternative remedies. 2. A review to specifically ensure our patients have had annual screening for screening for depression, screening for tobacco use, and screening for unhealthy alcohol use. For concerning screenings had a discussion with the patient, provided patient education, and recommended follow-up with primary care provider when appropriate. If patient noted with a risk of falling, they received education on strength, gait, and balance training to prevent future risk of falling. Assessment and Plan Assessment and Plan (1) Sacroiliitis: (2) Lumbar spondylosis: (3) Lumbar stenosis with neurogenic claudication: Plan increase pregabalin 50mg BID, risks vs benefits reviewed pt continues to think about spinal cord stimulator trial, all questions answered today continue HEP as tolerated f/u 1 month to assess medication changes and discuss spinal cord stim trial
== END 2024-06-11 08:02 | disposition home or self-care (01) ==
LOC: PM 08:01
PROVIDERS: PCP Family Medicine; Visit Provider Nurse Practitioner
DX: M46.1 Sacroiliitis, not elsewhere classified (principal); M47.816 Spondylosis without myelopathy or radiculopathy, lumbar region; M48.062 Spinal stenosis, lumbar region with neurogenic claudication
CPT/HCPCS: G0463

== ENCOUNTER 2024-08-12 11:36 | Outpatient (OUT) | payer MEDICARE, SELFPAY ==
--- NOTE | 2024-08-12 12:15 | PM.CN ---
Consult Note: HPI Data of Consult Patient: known to practice within the last 3 years Requesting Physician: Gabrielle Boswell NP Primary Care Provider: Rocio Dahl MD Consult Narrative Reason for consult: Low back, bilateral leg pain, neck pain Narrative: 78yof who presents for evaluation. Longstanding low back and right lower extremity pain. Lumbar imaging shows multilevel facet and disc degeneration, as well as several levels of stenosis, particularly at L4-5 and L5-S1. Continues in provider directed home exercises and therapy exercises >6 weeks. Has tried tylenol, NSAIDs, failed pregabalin, tramadol. currently on eliquis and cannot take NSAIDs with CKD. Denies adverse med side effects. Low back pain, right buttock and right calf 5/10 pinching stabbing, ache increasing to 10/10 with standing, walking, twisting, pushing, pulling, stairs, and all activity. Pt found prior lumbar TFESIs mildly beneficial, is not interested in spinal cord stim trial at this time. cc:: CC: Gabrielle Boswell NP Review of Systems ROS Status of ROS 10 or more systems reviewed and unremarkable except as noted in history and below Musculoskeletal Reports: back pain and joint pain PFSH PFS Medical History Irregular heartbeat ?I49.9 - Cardiac arrhythmia, unspecified (ICD-10) Sleep apnea ?G47.30 - Sleep apnea, unspecified (ICD-10) Hiatal hernia ?K44.9 - Diaphragmatic hernia without obstruction or gangrene (ICD-10) Acid reflux ?K21.9 - Gastro-esophageal reflux disease without esophagitis (ICD-10) Osteoarthritis ?M19.90 - Unspecified osteoarthritis, unspecified site (ICD-10) TMJ (dislocation of temporomandibular joint) ?S03.00XA - Dislocation of jaw, unspecified side, initial encounter (ICD-10) Hypothyroid ?E03.9 - Hypothyroidism, unspecified (ICD-10) Surgical History History of bladder surgery ?Z98.890 - Other specified postprocedural states (ICD-10) History of knee replacement ?Z96.659 - Presence of unspecified artificial knee joint (ICD-10) History of hip replacement ?Z96.649 - Presence of unspecified artificial hip joint (ICD-10) History of cholecystectomy ?Z90.49 - Acquired absence of other specified parts of digestive tract (ICD-10) History of ankle surgery ?Z98.890 - Other specified postprocedural states (ICD-10) H/O: hysterectomy ?Z90.710 - Acquired absence of both cervix and uterus (ICD-10) H/O hernia repair ?Z98.890 - Other specified postprocedural states (ICD-10) ?Z87.19 - Personal history of other diseases of the digestive system (ICD-10) Meds Home Medications and Allergies Home Medications ?Medication ?Instructions ?Recorded ?Confirmed ?Type aspirin 81 mg capsule 81 mg PO DAILY 08/26/23 06/01/24 History calcium-magnesium 300 mg-300 mg 1 tab PO DAILY 08/26/23 06/01/24 History tablet cholecalciferol (vitamin D3) 50 50 mcg PO BID 08/26/23 06/01/24 History mcg (2,000 unit) capsule citalopram 20 mg tablet 20 mg PO DAILY 08/26/23 06/01/24 History cyanocobalamin (vitamin B-12) 1,000 mcg PO DAILY 08/26/23 06/01/24 History 1,000 mcg capsule docusate sodium 100 mg capsule 100 mg PO DAILY 08/26/23 06/01/24 History estradiol 0.01% (0.1 mg/gram) 1 g vaginal QWEEK 08/26/23 06/01/24 History vaginal cream fexofenadine 180 mg tablet 180 mg PO DAILY 08/26/23 06/01/24 History fluticasone propionate 50 1 spray intranasal DAILY PRN 08/26/23 06/01/24 History mcg/actuation nasal allergy symptoms spray,suspension levothyroxine 50 mcg capsule 50 mcg PO DAILY 08/26/23 06/01/24 History pilocarpine HCl 5 mg tablet 5 mg PO TID 08/26/23 06/01/24 History pravastatin 40 mg tablet 40 mg PO DAILY 08/26/23 06/01/24 History psyllium husk 0.4 gram capsule 0.4 g PO DAILY 08/26/23 06/01/24 History (Metamucil) topiramate 50 mg tablet 50 mg PO DAILY 08/26/23 06/01/24 History apixaban 5 mg tablet (Eliquis) 5 mg PO BID 02/03/24 06/01/24 History diltiazem HCl 120 mg 120 mg PO Q24H 03/25/24 06/01/24 History capsule,extended release 24 hr pregabalin 50 mg capsule 50 mg PO DAILY #30 caps 05/27/24 06/01/24 Rx pregabalin 50 mg capsule (Lyrica) 50 mg PO DAILY 06/01/24 06/01/24 History pregabalin 50 mg capsule (Lyrica) 50 mg PO BID #60 caps 06/11/24 Rx tramadol 50 mg tablet 50 mg PO BID PRN pain #14 tabs 08/12/24 Rx Allergies Allergy/AdvReac Type Severity Reaction Status Date / Time latex Allergy Irritable Verified 06/01/24 09:10 morphine Allergy Vomiting Verified 06/01/24 09:10 Sulfa (Sulfonamide Allergy Rash Verified 06/01/24 09:10 Antibiotics) Exam Constitutional Documenting provider has reviewed patient's vital signs: yes Common normals: no apparent distress, oriented x3, healthy appearing, alert and well nourished General appearance: cooperative [facility] Common normals: normocephalic, hearing grossly normal bilaterally and moist oral mucous membranes Head and scalp: normocephalic Eye Common normals: PERRL Pupil: PERRL Neck & C-Spine Common normals: full ROM General: normal visual inspection Chest Common normals: inspection of chest normal Respiratory Common normals: normal respiratory effort, no retractions and no use of accessory muscles Back & Pelvis Lumbar spine/lower back: normal to inspection, ROM limited, pain with ROM and straight leg raise positive right Sacroiliac joints: SI joint(s) abnormal Other: strength 5/5 in BLE positive right SIJ exam, thomas(patricks), gaenslens, thigh thrust, compression test increased pain right L5/S1 decreased sensation to right L4 Extremity Common normals: normal to inspection and full ROM Neuro Common normals: oriented x3, CN's II-XII intact bilaterally, moves all extremities, no focal motor deficits, no sensory deficits noted and deep tendon reflexes 2+ bilaterally Sensorium/orientation: alert Motor exam: strength 5/5 throughout and no movement abnormalities noted Psych Common normals: mental status grossly normal, thought process normal, cooperative, affect normal, speech normal and activity/motor behavior normal Speech: normal speech Thought process: normal thought process Results Additional Findings Additional findings: If on a controlled substance or opioids, I have checked an [place] report on this patient and there are no aberrancies noted in the prescribing history.??If on a controlled substance or opioid a drug screen was completed and reviewed within the last year, and if there has not been a drug screen completed we ordered one today to monitor higher risk, state monitored pain medication use. As part of providing excellent, safe, comprehensive care, the following was completed at our patient's visit: 1. A medication reconciliation and review to ensure accurate knowledge of current/active medications, including asking our patients to inform us about any [id number] medications or herbal remedies/nutritional supplements/alternative remedies. 2. A review to specifically ensure our patients have had annual screening for screening for depression, screening for tobacco use, and screening for unhealthy alcohol use. For concerning screenings had a discussion with the patient, provided patient education, and recommended follow-up with primary care provider when appropriate. If patient noted with a risk of falling, they received education on strength, gait, and balance training to prevent future risk of falling. Assessment and Plan Assessment and Plan (1) Lumbar radiculopathy: (2) Lumbar stenosis with neurogenic claudication: (3) Sacroiliitis: (4) Lumbar spondylosis: Plan right l4-5 L5-S1 TFESI with steroid rotation to dexamethasone continues to think about spinal cord stim trial, not interested at this time start tramadol 50mg BID PRN moderate to severe pain 14 tabs to last 7 days, if pt finds beneficial will refill/continue start transdermal therapeutics cream 10a TID PRN pain to right calf and low back f/u with Dr Harris for further eval, could consider right distal sciatic nerve block
== END 2024-08-12 11:37 | disposition home or self-care (01) ==
LOC: PM 11:36
PROVIDERS: PCP Family Medicine; Visit Provider Nurse Practitioner
DX: M54.16 Radiculopathy, lumbar region (principal); M48.062 Spinal stenosis, lumbar region with neurogenic claudication; M46.1 Sacroiliitis, not elsewhere classified; M47.816 Spondylosis without myelopathy or radiculopathy, lumbar region
CPT/HCPCS: G0463

== ENCOUNTER 2024-08-24 08:29 | Day surgery (SDC) | payer MEDICARE, SELFPAY ==
[2024-08-24 09:13] VITALS: BP 151/83; PULSE 70; TEMP 36.2; O2SAT 99
[2024-08-24 09:55] VITALS: PULSE 69; O2SAT 98
[2024-08-24 09:56] VITALS: BP 153/71; BP 155/70; PULSE 66; O2SAT 99
[2024-08-24] MEDS: BUPIVACAINE HCL 0.25% PF 25 MG/10 ML VIAL INJ (09:58)
[2024-08-24] MEDS: 0.9 % SODIUM CHLORIDE 10 ML SYRINGE - SALINE FLUSH INJ (09:58)
[2024-08-24] MEDS: IOHEXOL 240 MG/ML - 10 ML VIAL 24 MG INJ (09:58)
[2024-08-24] MEDS: LIDOCAINE HCL 2% 400 MG/20 ML MDV 3 ML INJ (09:58)
[2024-08-24] MEDS: DEXAMETHASONE SOD PHOS (PF) 10 MG/ML VIAL INJ (09:59)
--- NOTE | 2024-08-24 10:00 | P.ON_ITS ---
Date of procedure: 08/24/24 Pre-op diagnosis: Pain due to lumbar stenosis with neurogenic claudication Post-op diagnosis: same as pre-op Procedure: Procedure: Right L4-5, L5-S1 transforaminal epidural steroid injection Medications: Bupivacaine 0.25% 2cc, lidocaine 2% 1cc, dexamethasone 10mg The patient was seen and examined in the preoperative holding area.? Informed consent was obtained and placed on the chart.? Patient was brought to the medical procedure unit and placed in the prone position where a timeout was completed verifying the correct patient, procedure site, position, and planned special equipment using sterile aseptic technique.? Under direct fluoroscopic visualization a 25-gauge Quincke tipped spinal needle was advanced to the designated neural foramen where contrast dye was injected to show adequate spread.? The needle was inserted at level right L4-5. There was no evidence of vascular or adverse uptake.? Epidural spread was appreciated.? The above- mentioned injectate was then placed in a 1.5 mL aliquot preceded by negative aspiration.? The needle was removed. The needle was inserted and the procedure repeated at level right L5-S1.? The surgery site was covered.? Patient was taken to the postprocedural recovery area and monitored for an appropriate length of time before found suitable for discharge in the accompaniment of a responsible adult. Anesthesia: Local Surgeon: Trevon Harris Pathology: none sent Condition: stable Disposition: no change
== END 2024-08-24 10:07 | disposition home or self-care (01) ==
LOC: SURGOUT 08:30
PROVIDERS: PCP Family Medicine; Visit Provider Anesthesiology
DX: M48.062 Spinal stenosis, lumbar region with neurogenic claudication (principal)
CPT/HCPCS: 64483; 64484; J0665; J1100; Q9966

== ENCOUNTER 2024-09-07 12:51 | Outpatient (OUT) | payer MEDICARE, SELFPAY ==
--- NOTE | 2024-09-07 14:42 | PM.CN ---
Consult Note: HPI Data of Consult Patient: known to practice within the last 3 years Consult date: 09/07/24 Requesting Physician: Trevon Harris MD Primary Care Provider: Rocio Dahl MD Consult Narrative Reason for consult: low back, right leg pain Narrative: 78yof who presents for assessment. had good relief with tfesi, though still endorses pain from right buttock down posterior right leg. continues in a series of provider directed home exercises >6 weeks, without significant benefit. uses tramadol as needed. cc:: CC: Trevon Harris MD Review of Systems ROS Status of ROS 10 or more systems reviewed and unremarkable except as noted in history and below PFSH [facility] Medical History Irregular heartbeat ?I49.9 - Cardiac arrhythmia, unspecified (ICD-10) Sleep apnea ?G47.30 - Sleep apnea, unspecified (ICD-10) Hiatal hernia ?K44.9 - Diaphragmatic hernia without obstruction or gangrene (ICD-10) Acid reflux ?K21.9 - Gastro-esophageal reflux disease without esophagitis (ICD-10) Osteoarthritis ?M19.90 - Unspecified osteoarthritis, unspecified site (ICD-10) TMJ (dislocation of temporomandibular joint) ?S03.00XA - Dislocation of jaw, unspecified side, initial encounter (ICD-10) Hypothyroid ?E03.9 - Hypothyroidism, unspecified (ICD-10) Surgical History History of bladder surgery ?Z98.890 - Other specified postprocedural states (ICD-10) History of knee replacement ?Z96.659 - Presence of unspecified artificial knee joint (ICD-10) History of hip replacement ?Z96.649 - Presence of unspecified artificial hip joint (ICD-10) History of cholecystectomy ?Z90.49 - Acquired absence of other specified parts of digestive tract (ICD-10) History of ankle surgery ?Z98.890 - Other specified postprocedural states (ICD-10) H/O: hysterectomy ?Z90.710 - Acquired absence of both cervix and uterus (ICD-10) H/O hernia repair ?Z98.890 - Other specified postprocedural states (ICD-10) ?Z87.19 - Personal history of other diseases of the digestive system (ICD-10) Meds Home Medications and Allergies Home Medications ?Medication ?Instructions ?Recorded ?Confirmed ?Type aspirin 81 mg capsule 81 mg PO DAILY 08/26/23 08/24/24 History calcium-magnesium 300 mg-300 mg 1 tab PO DAILY 08/26/23 08/24/24 History tablet cholecalciferol (vitamin D3) 50 50 mcg PO BID 08/26/23 08/24/24 History mcg (2,000 unit) capsule citalopram 20 mg tablet 20 mg PO DAILY 08/26/23 08/24/24 History cyanocobalamin (vitamin B-12) 1,000 mcg PO DAILY 08/26/23 08/24/24 History 1,000 mcg capsule docusate sodium 100 mg capsule 100 mg PO DAILY 08/26/23 08/24/24 History estradiol 0.01% (0.1 mg/gram) 1 g vaginal QWEEK 08/26/23 08/24/24 History vaginal cream fexofenadine 180 mg tablet 180 mg PO DAILY 08/26/23 08/24/24 History fluticasone propionate 50 1 spray intranasal DAILY PRN 08/26/23 08/24/24 History mcg/actuation nasal allergy symptoms spray,suspension levothyroxine 50 mcg capsule 50 mcg PO DAILY 08/26/23 08/24/24 History pilocarpine HCl 5 mg tablet 5 mg PO TID 08/26/23 08/24/24 History pravastatin 40 mg tablet 40 mg PO DAILY 08/26/23 08/24/24 History psyllium husk 0.4 gram capsule 0.4 g PO DAILY 08/26/23 08/24/24 History (Metamucil) topiramate 50 mg tablet 50 mg PO DAILY 08/26/23 08/24/24 History apixaban 5 mg tablet (Eliquis) 5 mg PO BID 02/03/24 08/24/24 History diltiazem HCl 120 mg 120 mg PO Q24H 03/25/24 08/24/24 History capsule,extended release 24 hr tramadol 50 mg tablet 50 mg PO BID PRN pain #14 tabs 08/12/24 08/24/24 Rx Allergies Allergy/AdvReac Type Severity Reaction Status Date / Time latex Allergy Irritable Verified 08/24/24 09:21 morphine Allergy Vomiting Verified 08/24/24 09:21 Sulfa (Sulfonamide Allergy Rash Verified 08/24/24 09:21 Antibiotics) Exam Narrative Exam Narrative: Psych-alert and oriented x 3. Attentive and appropriate, constitutionally normal, displays normal mood and affect per situation. There are no obvious deficits in memory, reasoning, or intellect.? Skin-no obvious rashes, bruising, erythema noted to the patient's area of pain.? Extremities- extremities are warm with minimal edema and palpable pulses. Lumbar-tenderness to palpation noted in the lumbar spine and paraspinal musculature. Pain is not elicited with flexion, extension, and lateral rotation of the lumbar spine. Range of motion is not diminished with these motions. Facet loading maneuvers are negative.? Strength-noted to be unremarkable with the exception of decreased strength rated at 4 out of 5 in right anterior tibialis, posterior tibialis. Sensory-no notable sensory deficits in the bilateral lower extremities to touch or pinprick in all dermatomal distributions with the exception to decreased sensation to the right L5, S1 dermatomal distribution Coordination remains intact.? Gait remains non-antalgic. Assessment and Plan Assessment and Plan (1) Lumbar radiculopathy: (2) Right sided sciatica: Plan 78yof who presents for assessment. glad that she had relief with lumbar tfesi, suspect that dealing with right sciatica. given symptoms and exam findings, prudent to attempt right sciatic nerve block under fluoroscopic guidance. she is in agreement. meds reviewed, uds obtained. follow up after procedure.
== END 2024-09-07 12:52 | disposition home or self-care (01) ==
PROVIDERS: PCP Family Medicine; Visit Provider Anesthesiology
DX: M54.16 Radiculopathy, lumbar region (principal); M54.31 Sciatica, right side
CPT/HCPCS: G0463

== ENCOUNTER 2024-09-14 09:32 | Day surgery (SDC) | payer MEDICARE, SELFPAY ==
[2024-09-14 10:43] VITALS: BP 144/95; PULSE 138; O2SAT 96
[2024-09-14] MEDS: METHYLPREDNISOLONE ACETATE 80 MG/ML VIAL INJ (10:46)
[2024-09-14] MEDS: LIDOCAINE HCL 2% PF 100 MG/5 ML VIAL INJ (10:46)
[2024-09-14] MEDS: 0.9 % SODIUM CHLORIDE 10 ML SYRINGE - SALINE FLUSH 2 ML INJ (10:46)
[2024-09-14] MEDS: BUPIVACAINE HCL 0.25% PF 25 MG/10 ML VIAL 2 ML INJ (10:46)
[2024-09-14] MEDS: IOHEXOL 240 MG/ML - 50 ML VIAL INJ (10:47)
[2024-09-14 10:50] VITALS: BP 145/82; PULSE 125; O2SAT 97
--- NOTE | 2024-09-14 13:53 | W.PM.PROCNOT ---
Date of procedure: 09/14/24 Post-op diagnosis: same as pre-op Procedure: PROCEDURE:? Right sciatic nerve block PREOPERATIVE DIAGNOSIS:? sciatica POSTOP DIAGNOSIS -SAME MMEDIATE COMPLICATIONS:? None. SOLUTION USED FOR INJECTION:? 2% lidocaine 3ml, Depomedrol 80mg, marcaine 0.25% 3ml. Omnipaque dye used to confirm needle tip placement. PROCEDURE:? After informed consent was obtained from the patient, brought to the OR, placed in the prone position.? The skin overlying the area was prepped and draped in sterile fashion using Betadine.? A stimulplex spinal needle was inserted along with nerve stimulation over the targeted areas directed towards the right sciatic nerve.? After encountering the same, no indication of intravascular or intraneural or intrathecal needle tip placement, solution injected.?Needle was removed.? Transferred to recovery in stable condition.? He reports dramatic decrease in pain symptoms post procedurally.? Anesthesia: Local Surgeon: Anne Cramer Condition: stable Disposition: PACU
== END 2024-09-14 10:56 | disposition home or self-care (01) ==
LOC: SURGOUT 09:33
PROVIDERS: PCP Family Medicine; Visit Provider Anesthesiology Pain Medicine
DX: M54.31 Sciatica, right side (principal)
CPT/HCPCS: 64445; J0665; J1010; Q9966

== ENCOUNTER 2024-09-24 13:30 | Outpatient (OUT) | payer MEDICARE, SELFPAY ==
--- NOTE | 2024-09-24 13:56 | P.CN_ITS ---
Consult Note: HPI Data of Consult Patient: known to practice within the last 3 years Consult date: 09/24/24 Requesting Physician: Gabrielle Boswell NP Primary Care Provider: Rocio Dahl MD Consult Narrative Reason for consult: Low back, bilateral leg pain, neck pain Narrative: 78yof who presents for evaluation. Longstanding low back and right lower extremity pain. Lumbar imaging shows multilevel facet and disc degeneration, as well as several levels of stenosis, particularly at L4-5 and L5-S1. Continues in provider directed home exercises and therapy exercises >6 weeks. Has tried tylenol, NSAIDs, failed pregabalin, tramadol. currently on eliquis and cannot take NSAIDs with CKD. Denies adverse med side effects. Low back pain, right buttock and right calf 3/10 pinching stabbing, ache increasing to 5/10 with standing, walking, twisting, pushing, pulling, stairs, and all activity.recently underwent right sciatic nerve block with >50% improvement ongoing cc:: CC: Gabrielle Boswell NP Review of Systems ROS Status of ROS 10 or more systems reviewed and unremark able except as noted in history and below Musculoskeletal Reports: back pain and joint pain PFSH PFSH Medical History Irregular heartbeat ?I49.9 - Cardiac arrhythmia, unspecified (ICD-10) Sleep apnea ?G47.30 - Sleep apnea, unspecified (ICD-10) Hiatal hernia ?K44.9 - Diaphragmatic hernia without obstruction or gangrene (ICD-10) Acid reflux ?K21.9 - Gastro-esophageal reflux disease without esophagitis (ICD-10) Osteoarthritis ?M19.90 - Unspecified osteoarthritis, unspecified site (ICD-10) TMJ (dislocation of temporomandibular joint) ?S03.00XA - Dislocation of jaw, unspecified side, initial encounter (ICD-10) Hypothyroid ?E03.9 - Hypothyroidism, unspecified (ICD-10) Surgical History History of bladder surgery ?Z98.890 - Other specified postprocedural states (ICD-10) History of knee replacement ?Z96.659 - Presence of unspecified artificial knee joint (ICD-10) History of hip replacement ?Z96.649 - Presence of unspecified artificial hip joint (ICD-10) History of cholecystectomy ?Z90.49 - Acquired absence of other specified parts of digestive tract (ICD- 10) History of ankle surgery ?Z98.890 - Other specified postprocedural states (ICD-10) H/O: hysterectomy ?Z90.710 - Acquired absence of both cervix and uterus (ICD-10) H/O hernia repair ?Z98.890 - Other specified postprocedural states (ICD-10) ?Z87.19 - Personal history of other diseases of the digestive system (ICD-10) Meds Home Medications and Allergies Home Medications ?Medication ?Instructions ?Recorded ?Confirmed ?Type aspirin 81 mg capsule 81 mg PO DAILY 08/26/23 08/24/24 History calcium-magnesium 300 mg-300 mg 1 tab PO DAILY 08/26/23 08/24/24 History tablet cholecalciferol (vitamin D3) 50 50 mcg PO BID 08/26/23 08/24/24 History mcg (2,000 unit) capsule citalopram 20 mg tablet 20 mg PO DAILY 08/26/23 08/24/24 History cyanocobalamin (vitamin B-12) 1,000 mcg PO DAILY 08/26/23 08/24/24 History 1,000 mcg capsule docusate sodium 100 mg capsule 100 mg PO DAILY 08/26/23 08/24/24 History estradiol 0.01% (0.1 mg/gram) 1 g vaginal QWEEK 08/26/23 08/24/24 History vaginal cream fexofenadine 180 mg tablet 180 mg PO DAILY 08/26/23 08/24/24 History fluticasone propionate 50 1 spray intranasal DAILY PRN 08/26/23 08/24/24 History mcg/actuation nasal allergy symptoms spray,suspension levothyroxine 50 mcg capsule 50 mcg PO DAILY 08/26/23 08/24/24 History pilocarpine HCl 5 mg tablet 5 mg PO TID 08/26/23 08/24/24 History pravastatin 40 mg tablet 40 mg PO DAILY 08/26/23 08/24/24 History psyllium husk 0.4 gram capsule 0.4 g PO DAILY 08/26/23 08/24/24 History (Metamucil) topiramate 50 mg tablet 50 mg PO DAILY 08/26/23 08/24/24 History apixaban 5 mg tablet (Eliquis) 5 mg PO BID 02/03/24 08/24/24 History diltiazem HCl 120 mg 120 mg PO Q24H 03/25/24 08/24/24 History capsule,extended release 24 hr tramadol 50 mg tablet 50 mg PO BID PRN pain #14 tabs 08/12/24 08/24/24 Rx Allergies Allergy/AdvReac Type Severity Reaction Status Date / Time latex Allergy Irritable Verified 08/24/24 09:21 morphine Allergy Vomiting Verified 08/24/24 09:21 Sulfa (Sulfonamide Allergy Rash Verified 08/24/24 09:21 Antibiotics) Exam Constitutional Documenting provider has reviewed patient's vital signs: yes Common normals: no apparent distress, oriented x3, healthy appearing, alert and well nourished General appearance: cooperative HENMT Common normals: normocephalic, hearing grossly normal bilaterally and moist oral mucous membranes Head and scalp: normocephalic Eye Common normals: PERRL Pupil: PERRL Neck & C-Spine Common normals: full ROM General: normal visual inspection Chest Common normals: inspection of chest normal Respiratory Common normals: normal respiratory effort, no retractions and no use of accessory muscles Back & Pelvis Lumbar spine/lower back: normal to inspection, ROM limited, pain with ROM and straight leg raise positive right Sacroiliac joints: SI joint(s) abnormal Other: strength 5/5 in BLE positive right SIJ exam, thomas(patricks), gaenslens, thigh thrust, compression test increased pain right L5/S1 Extremity Common normals: normal to inspection and full ROM Neuro Common normals: oriented x3, CN's II-XII intact bilaterally, moves all extremities, no focal motor deficits, no sensory deficits noted and deep tendon reflexes 2+ bilaterally Sensorium/orientation: alert Motor exam: strength 5/5 throughout and no movement abnormalities noted Psych Common normals: mental status grossly normal, thought process normal, cooperative, affect normal, speech normal and activity/motor behavior normal Speech: normal speech Thought process: normal thought process Results Additional Findings Additional findings: If on a controlled substance or opioids, I have checked an [place] report on this patient and there are no aberrancies noted in the prescribing history.??If on a controlled substance or opioid a drug screen was completed and reviewed within the last year, and if there has not been a drug screen completed we ordered one today to monitor higher risk, state monitored pain medication use. As part of providing excellent, safe, comprehensive care, the following was completed at our patient's visit: 1. A medication reconciliation and review to ensure accurate knowledge of current/active medications, including asking our patients to inform us about any zdus-ill-hjepiyh medications or herbal remedies/nutritional s upplements/alternative remedies. 2. A review to specifically ensure our patients have had annual screening for screening for depression, screening for tobacco use, and screening for unhealthy alcohol use. For concerning screenings had a discussion with the patient, provided patient education, and recommended follow-up with primary care provider when appropriate. If patient noted with a risk of falling, they received education on strength, gait, and balance training to prevent future risk of falling. Assessment and Plan Assessment and Plan (1) Lumbar radiculopathy: (2) Lumbar stenosis with neurogenic claudication: (3) Sacroiliitis: (4) Lumbar spondylosis: Plan continue HEP as tolerated f/u 3 months, sooner if needed
== END 2024-09-24 13:31 | disposition home or self-care (01) ==
LOC: PM 13:31
PROVIDERS: PCP Family Medicine; Visit Provider Nurse Practitioner
DX: M54.16 Radiculopathy, lumbar region (principal); M48.062 Spinal stenosis, lumbar region with neurogenic claudication; M46.1 Sacroiliitis, not elsewhere classified; M47.816 Spondylosis without myelopathy or radiculopathy, lumbar region
CPT/HCPCS: G0463

== ENCOUNTER 2024-12-23 09:17 | Outpatient (OUT) | payer MEDICARE, SELFPAY ==
--- NOTE | 2024-12-23 09:56 | PM.CN ---
Consult Note: HPI Data of Consult Patient: known to practice within the last 3 years Consult date: 12/23/24 Requesting Physician: Gabrielle Boswell NP Primary Care Provider: Rocio Dahl MD Consult Narrative Reason for consult: Low back, bilateral leg pain, neck pain Narrative: 79yof who presents for evaluation. Longstanding low back and right lower extremity pain. Lumbar imaging shows multilevel facet and disc degeneration, as well as several levels of stenosis, particularly at L4-5 and L5-S1. Continues in provider directed home exercises and therapy exercises >6 weeks. Has tried tylenol, NSAIDs, failed pregabalin, tramadol. currently on eliquis and cannot take NSAIDs with CKD. Denies adverse med side effects. Low back pain, right buttock and right calf 2/10 pinching stabbing, ache increasing to 3/10 with standing, walking, twisting, pushing, pulling, stairs, and all activity. prior right sciatic nerve block with >50% improvement ongoing cc:: CC: Gabrielle Boswell NP Review of Systems ROS Status of ROS 10 or more systems reviewed and unremarkable except as noted in history and below Musculoskeletal Reports: back pain and joint pain PFSH PFSH Medical History Irregular heartbeat ?I49.9 - Cardiac arrhythmia, unspecified (ICD-10) Sleep apnea ?G47.30 - Sleep apnea, unspecified (ICD-10) Hiatal hernia ?K44.9 - Diaphragmatic hernia without obstruction or gangrene (ICD-10) Acid reflux ?K21.9 - Gastro-esophageal reflux disease without esophagitis (ICD-10) Osteoarthritis ?M19.90 - Unspecified osteoarthritis, unspecified site (ICD-10) TMJ (dislocation of temporomandibular joint) ?S03.00XA - Dislocation of jaw, unspecified side, initial encounter (ICD-10) Hypothyroid ?E03.9 - Hypothyroidism, unspecified (ICD-10) Surgical History History of bladder surgery ?Z98.890 - Other specified postprocedural states (ICD-10) History of knee replacement ?Z96.659 - Presence of unspecified artificial knee joint (ICD-10) History of hip replacement ?Z96.649 - Presence of unspecified artificial hip joint (ICD-10) History of cholecystectomy ?Z90.49 - Acquired absence of other specified parts of digestive tract (ICD-10) History of ankle surgery ?Z98.890 - Other specified postprocedural states (ICD-10) H/O: hysterectomy ?Z90.710 - Acquired absence of both cervix and uterus (ICD-10) H/O hernia repair ?Z98.890 - Other specified postprocedural states (ICD-10) ?Z87.19 - Personal history of other diseases of the digestive system (ICD-10) Meds Home Medications and Allergies Home Medications ?Medication ?Instructions ?Recorded ?Confirmed ?Type aspirin 81 mg capsule 81 mg PO DAILY 08/26/23 08/24/24 History calcium-magnesium 300 mg-300 mg 1 tab PO DAILY 08/26/23 08/24/24 History tablet cholecalciferol (vitamin D3) 50 50 mcg PO BID 08/26/23 08/24/24 History mcg (2,000 unit) capsule citalopram 20 mg tablet 20 mg PO DAILY 08/26/23 08/24/24 History cyanocobalamin (vitamin B-12) 1,000 mcg PO DAILY 08/26/23 08/24/24 History 1,000 mcg capsule docusate sodium 100 mg capsule 100 mg PO DAILY 08/26/23 08/24/24 History estradiol 0.01% (0.1 mg/gram) 1 g vaginal QWEEK 08/26/23 08/24/24 History vaginal cream fexofenadine 180 mg tablet 180 mg PO DAILY 08/26/23 08/24/24 History fluticasone propionate 50 1 spray intranasal DAILY PRN 08/26/23 08/24/24 History mcg/actuation nasal allergy symptoms spray,suspension levothyroxine 50 mcg capsule 50 mcg PO DAILY 08/26/23 08/24/24 History pilocarpine HCl 5 mg tablet 5 mg PO TID 08/26/23 08/24/24 History pravastatin 40 mg tablet 40 mg PO DAILY 08/26/23 08/24/24 History psyllium husk 0.4 gram capsule 0.4 g PO DAILY 08/26/23 08/24/24 History (Metamucil) topiramate 50 mg tablet 50 mg PO DAILY 08/26/23 08/24/24 History apixaban 5 mg tablet (Eliquis) 5 mg PO BID 02/03/24 08/24/24 History diltiazem HCl 120 mg 120 mg PO Q24H 03/25/24 08/24/24 History capsule,extended release 24 hr tramadol 50 mg tablet 50 mg PO BID PRN pain #14 tabs 08/12/24 08/24/24 Rx Allergies Allergy/AdvReac Type Severity Reaction Status Date / Time latex Allergy Irritable Verified 08/24/24 09:21 morphine Allergy Vomiting Verified 08/24/24 09:21 Sulfa (Sulfonamide Allergy Rash Verified 08/24/24 09:21 Antibiotics) Exam Constitutional Documenting provider has reviewed patient's vital signs: yes Common normals: no apparent distress, oriented x3, healthy appearing, alert and well nourished General appearance: cooperative HENME Common normals: normocephalic, hearing grossly normal bilaterally and moist oral mucous membranes Head and scalp: normocephalic Eye Common normals: PERRL Pupil: PERRL Neck & C-Spine Common normals: full ROM General: normal visual inspection Chest Common normals: inspection of chest normal Respiratory Common normals: normal respiratory effort, no retractions and no use of accessory muscles Back & Pelvis Lumbar spine/lower back: normal to inspection, ROM limited and straight leg raise negative bilaterally; no pain with ROM Sacroiliac joints: SI joints normal Other: strength 5/5 in BLE negative right SIJ exam, thomas(patricks), gaenslens, thigh thrust, compression test sensation intact BLE Extremity Common normals: normal to inspection and full ROM Neuro Common normals: oriented x3, CN's II-XII intact bilaterally, moves all extremities, no focal motor deficits, no sensory deficits noted and deep tendon reflexes 2+ bilaterally Sensorium/orientation: alert Motor exam: strength 5/5 throughout and no movement abnormalities noted Psych Common normals: mental status grossly normal, thought process normal, cooperative, affect normal, speech normal and activity/motor behavior normal Speech: normal speech Thought process: normal thought process Results Additional Findings Additional findings: If on a controlled substance or opioids, I have checked an [place]AR[place] report on this patient and there are no aberrancies noted in the prescribing history.??If on a controlled substance or opioid a drug screen was completed and reviewed within the last year, and if there has not been a drug screen completed we ordered one today to monitor higher risk, state monitored pain medication use. As part of providing excellent, safe, comprehensive care, the following was completed at our patient's visit: 1. A medication reconciliation and review to ensure accurate knowledge of current/active medications, including asking our patients to inform us about any elml-jaf-ebsoqyv medications or herbal remedies/nutritional supplements/alternative remedies. 2. A review to specifically ensure our patients have had annual screening for screening for depression, screening for tobacco use, and screening for unhealthy alcohol use. For concerning screenings had a discussion with the patient, provided patient education, and recommended follow-up with primary care provider when appropriate. If patient noted with a risk of falling, they received education on strength, gait, and balance training to prevent future risk of falling. Assessment and Plan Assessment and Plan (1) Lumbar stenosis with neurogenic claudication: (2) Right sided sciatica: Plan pain well controlled continue HEP as tolerated f/u PRN
== END 2024-12-23 09:18 | disposition home or self-care (01) ==
LOC: PM 09:18
PROVIDERS: PCP Family Medicine; Visit Provider Nurse Practitioner
DX: M48.062 Spinal stenosis, lumbar region with neurogenic claudication (principal); M54.31 Sciatica, right side
CPT/HCPCS: G0463

== ENCOUNTER 2025-02-03 08:09 | Outpatient (OUT) | payer MEDICARE, SELFPAY ==
--- OUTSIDE RECORDS SUMMARY | 2025-02-03 08:11 | XMS_ITS | Clinical Summary ---
Author Organization [facility] Address [address] [place] [id number] Care Team Providers Care Software Design Analyst Name Role Phone Rocio Dahl MD Primary Care Provider [phone] Allergies Active Allergy Reactions Criticality Noted Date Comments Escitalopram Itching,Rash Low 08/19/2007 Other reaction(s): Redness of Skin Other reaction(s): Redness of Skin Other reaction(s): Redness of Skin Hydrochlorothiazide Rash Low 05/20/2019 Ibuprofen GI Intolerance,Rash Low 01/29/2019 Latex Itching,Rash,Othe r (See Comments) Low 02/08/2011 Added based on information entered during case entry, please review and add reactions, type, and severity as needed Added based on information entered during case entry, please review and add reactions, type, and severity as needed Added based on information entered during case entry, please review and add reactions, type, and severity as needed Morphine GI Intolerance,Other (See Comments) 07/04/2007 Other reaction(s): Other (See Comments) Other reaction(s): Hallucinating, vomiting Other reaction(s): Hallucinating, vomiting Other reaction(s): Hallucinating, vomiting Sulfa (Sulfonamide Antibiotics) Hives 05/02/2023 Sulfamethoxazole-Trimethopr im Rash,Other (See Comments) Low 02/03/2023 Sulfur Itching 02/19/2020 Triamterene Rash Medium 01/29/2019 Wheat Itching 02/08/2011 Wheat gluten Medications ALPRAZolam (NIRAVAM) 0.5 MG dissolvable tablet Dissolve 1 (one) tablet (0.5 mg total) on top of tongue . 11/13/19 12 Active aspirin 81 MG EC tablet Aspir-81 Active Acti ve calcium carbonate (OS-ASHLY) 600 mg calcium (1,500 mg) tablet Take 1 (one) tablet (600 mg total) by mouth 2 (two) times a day with meals . Active citalopram (CELEXA) 20 MG tablet Take 1 (one) tablet (20 mg total) by mouth every night at bedtime . 04/11/20 15 Active cyanocobalamin (B-12) 1000 MCG tablet Take 1 (one) tablet (1,000 mcg total) by mouth daily . Active docusate sodium (COLACE) 100 MG capsule Take 1 (one) capsule (100 mg total) by mouth daily . 05/20/20 19 Active estradioL (ESTRACE) 0.01 % (0.1 mg/gram) vaginal cream Insert 1 (one) g into the vagina daily . 12/12/19 23 Active fexofenadine (MELANIA) 180 MG tablet Take 1 (one) tablet (180 mg total) by mouth once . 01/11/20 18 Active fluticasone propionate (FLONASE) 50 mcg/actuation nasal spray Instill 1 (one) spray into each nostril daily . 03/01/20 21 Active levothyroxine (SYNTHROID, LEVOTHROID) 50 MCG tablet TAKE 1 TABLET EVERY DAY FOR HYPOTHYROIDISM 11/03/19 15 Active pantoprazole (PROTONIX) 20 MG tablet Take 1 (one) tablet (20 mg total) by mouth daily . 05/15/20 21 Active pilocarpine (SALAGEN) 5 MG tablet Take 1 (one) tablet (5 mg total) by mouth 3 (three) times a day . 12/30/19 18 Active pravastatin sodium (PRAVASTATIN ORAL) Take 40 mg by mouth . 11/13/19 12 Active psyllium (METAMUCIL) 0.52 gram capsule Take by mouth See Admin Instructions . 07/04/19 07 Active topiramate (TOPAMAX) 50 MG tablet Take 1 (one) tablet (50 mg total) by mouth daily . 07/04/19 07 Active cholecalciferol , vitamin D3, 25 mcg (1,000 unit) capsule Take 1 (one) capsule (1,000 Units total) by mouth daily . Active apixaban 5 mg Tab Take 1 (one) tablet (5 mg total) by mouth 2 (two) times a day . 02/03/20 24 Active loratadine 10 mg cap Take by mouth . 07/17/19 22 Active amoxicillin-cla vulanate (AUGMENTIN) 875-125 mg per tablet Take 1 (one) tablet by mouth 2 (two) times a day . 20 tablet 01/16/20 25 Active betamethasone valerate (VALISONE) 0.1 % cream Apply topically daily . 30 g 01/16/20 25 026 Active famotidine (PEPCID) 20 MG tablet Take 1 (one) tablet (20 mg total) by mouth daily . 10/31/19 22 025 Discontinu ed(Patient 's Request) multivitamin with minerals tablet Take 1 (one) tablet by mouth daily . 025 Discontinu ed(Patient 's Request) clotrimazole (MYCELEX) 10 mg darling Take1 (one) tablet (10 mg total)by mouth 3 (three) times a day for 30 doses.Allow darling to dissolve slowly in the mouth. 30 Darling 01/16/20 25 025 Active Problems Problem Noted Date Diagnosed Date Acute suppurative otitis med ia of left ear without spontaneous rupture of tympanic membrane 05/02/2023 ROSETTE on CPAP 05/02/2023 Bruxism (teeth grinding) 05/02/2023 Hearing loss 05/02/2023 Encounters Date Type Department Care Team Description 01/15/2025 9:15 AM EDT Office Visit [facility] [address] [id number] Angelito Toribio PA-C Bacterial URI (Primary Dx); Dermatitis from Last 3 Months Family History Medical History Relation Comments Diabetes Mother Diabetes Sister Diabetes Son Relation Status Comments Mother Sister Son Other Social History Tobacco Use Types Packs/Day Years Used Date Smoking Tobacco: Never Smokeless Tobacco: Never Tobacco Cessation:Counseling Given: Not Answered Alcohol Use Standard Drinks/Week Comments Not Currently 0 (1 standard drink = 0.6 oz pur e alcohol) Comments Unknown Sex and Gender Information Value Date Recorded Sex Assigned at Not on file Legal Sex Female 8:28 AM EDT Gender Identity Not on file Sexual Orientation Not on file Last Filed Vital Signs Vital Sign Reading Time Taken Comments Blood Pressure 133/80 01/15/2025 9:17 AM EDT Pulse 72 01/15/2025 9:17 AM EDT Temperature 36.3 C (97.3 F) 01/15/2025 9:17 AM EDT Respiratory Rate 16 01/15/2025 9:17 AM EDT Oxygen Saturation 98% 01/15/2025 9:17 AM EDT Inhaled Oxygen Concentration - - Weight 96.2 kg (212 lb) 01/15/2025 9:17 AM EDT Height 162.6 cm (5' 4 ) 05/02/2023 8:55 AM EDT Body Mass Index 36.39 05/02/2023 8:55 AM EDT Plan of Treatment Health Maintenance Due Date Last Done Comments Dexa Scan 1944 Depression Screening/Follow- Up (PHQ-2/9) 1956 Falls Risk Assessment 2009 Respiratory Syncytial Virus Immunization: Risk, 60-74 Risk, or 75+ (1 - 1-dose 75+ series) 12/19/2019 Tetanus: Every 10yrs 12/31/2023 12/30/2013 COVID-19 Vaccine (2023-2 5 season) 2024 05/08/2022, 06/27/2021, 08/26/2020, Additional history exists Medicare Wellness Visit 05/06/2024 05/06/20 23, 05/03/2022, 05/02/2021, Additional history exists Influenza Vaccine (#1) 2025 4, 05/06/2023, 05/03/2022, Additional history exists Mammogram 05/08/2025 05/08/2024, 10/29, 03/13/2018 Pneumococcal Vaccine: Age 50+ Completed 03/01/2016, 03/31/2011 Zoster Vaccines Completed 05/12/2020, 03/01, 10/24/2011 Insurance MEDICARE PART A & B PART A CLAIMS [address] [address] [place] [address] [facility]/[employer] LIFE Care Teams Software Design Analyst Relationship Specialty Start Date End Date Rocio Dahl MD [address] [place] [address] PCP - General Family Medicine 04/24/23
--- OUTSIDE RECORDS SUMMARY | 2025-02-03 08:11 | XMS_ITS | Clinical Summary ---
Author Organization [facility] Address [address] [place] [address] Care Team Providers Care Canal Driver Name Role Phone Rocio Dahl MD Primary Care Provider [phone] Allergies Active Allergy Reactions Criticality Noted Date Comments Gluten Flour GI Upset,Itching 03/10/2018 Escitalopram Oxalate Itching 08/19/2007 Morphine 07/04/2007 Sulfa (Sulfonamide Antibiotics) 09/2007 Medications levothyroxine sodium(LEVOTHRO ID 88 MCG TAB) take one tablet daily 0 8 Active rabeprazole sodium(ACIPHEX 20 MG TAB) take one tablet daily 0 5 Active EZETIMIBE 10 MG TAB take one tablet daily 0 7 Active topiramate(TOPA MAX 50 MG TAB) take two tablet daily 0 7 Active lansoprazole(IN EVACID 15 MG CAP) take one tablet daily 0 7 Active sertraline hcl(ZOLOFT 50 MG TAB) take one and one half tablet HS 0 5 Active ALPRAZOLAM 0.5 MG TAB take one or two tablets at HS 0 8 Active rizatriptan benzoate(MAXALT 10 MG TAB) take with migraines 0 7 Active psyllium husk(METAMUCIL 0.52 G CAP) take as directed 0 7 Active calcium/mag/vit negro d2/zn/min(ASHLY-M AG ZINC II ORAL SUSP) take one tablet daily 0 7 Active aspirin, enteric coated (ASPIRIN, ENTERIC COATED) 81 mg EC tablet Take 81 mg by mouth once daily. Active esomeprazole (NEXIUM) 40 mg capsule Take 40 mg by mouth twice daily. Active citalopram (CELEXA) 20 mg tablet Take 20 mg by mouth once daily. Active ibuprofen (MOTRIN) 200 mg tablet Take 200 mg by mouth every 6 hours as needed. Active loratadine (CLARITIN) 10 mg tablet Take 10 mg by mouth once daily. Active clarithromycin (BIAXIN) 500 mg tab Take by mouth every 12 hours. Active multivitamin with minerals (MULTIPLE VITAMIN-MINERAL S) tablet Take 1 tablet by mouth once daily. Active Cholecalciferol , Vitamin D3, (VITAMIN D) 1,000 unit cap Take 1,000 Units by mouth once daily. Active triamterene-hyd rochlorothiazid e 37.5-25 mg per capsule Take 1 capsule by mouth once daily. Active pilocarpine (SALAGEN) 5 mg tablet Take 5 mg by mouth three times daily. Active levothyroxine (SYNTHROID) 50 mcg tablet Take 50 mcg by mouth daily before breakfast. Active docusate sodium (STOOL SOFTENER) 100 mg capsule Take 100 mg by mouth twice daily. Active pravastatin (PRAVACHOL) 40 mg tablet Take 40 mg by mouth once daily. Active diltiazem (CARDIZEM) 30 mg tablet Take 30 mg by mouth as needed. Active raloxifene (EVISTA) 60 mg tablet Take 60 mg by mouth once daily. Active Social History Tobacco Use Types Packs/Day Years Used Date Smoking Tobacco: Never Smokeless Tobacco: Never Tobacco Cessation:Counseling Given: No Alcohol Use Standard Drinks/Week Comments No 0 (1 standard drink = 0.6 oz pur e alcohol) Area Deprivation Index Answer Date Alessio rded National Score (1-100), lower number is lower ri sk Not on file 06/06/2020 State Score (1-10), lower number is lower risk N ot on file 06/06/2020 Data from: https://www.neighborhoodatlas.medicine.[facility].edu/. Last address used for calculation Not on file 06/06/2020 Comments Unknown Sex and Gender Information Value Date Recorded Sex Assigned at Not on file Legal Sex Female 8:11 AM EST Gender Identity Not on file Sexual Orientation Not on file Last Filed Vital Signs Vital Sign Reading Time Taken Comments Blood Pressure 130/77 03/10/2018 10:04 AM EDT Pulse 69 03/10/2018 10:04 AM EDT Temperature - - Respiratory Rate 18 03/10/2018 10:04 AM EDT Oxygen Saturation - - Inhaled Oxygen Concentration - - Weight 102.1 kg (225 lb) 03/10/2018 10:04 AM EDT Height 162.6 cm (5' 4 ) 03/10/2018 10:04 AM EDT Body Mass Index 38.62 03/10/2018 10:04 AM EDT Plan of Treatment Health Maintenance Due Date Last Done Comments Anxiety Screening 1962 Depression Screening 1962 Diabetes Screening 1989 Bone Density Screening 2009 Shingrix Vaccine (2 of 3) 12/19/2011 10/24/2011 DTaP,Tdap,Td Vaccine (1 - Tdap) 12/31/2013 4 RSV Vaccine (1 - 1-dose 75+ series) 12/19/2019 Advance Directive Discussion 07/01/2024 Influenza Vaccine (#1) 2025 05/14/2016 Pneumococcal Vaccine: 50+ Completed 03/01/2016, 07/2010 Insurance MEDICARE [employer] LIFE SUPPLEMENT [facility] Address: [address] [place] [id number] Care Teams Canal Driver Relationship Specialty Start Date End Date Rocio Dahl MD PCP - General 05/05/07
--- OUTSIDE RECORDS SUMMARY | 2025-02-03 08:11 | XMS_ITS | Encounter Summary ---
Author Organization [facility] Address [address] [place] [address] Care Team Providers Care Improvement Leader Name Role Phone Rocio Dahl MD Primary Care Provider [phone] Source Comments In the event this information is protected by the Federal Confidentiality of Alcohol and Drug AbusePatient Records regulations: The Federal rules restrict any use of the information to criminally investigate or prosecute any alcohol or drug abuse patient.[facility] Encounter Details Date Type Department Care Team (Late st Contact Info) Description 03/12/2018 Get Medical Advice [facility] [address] [id number] Andrews Fish MD [address] [place] [address] RE: Visit Follow Up Question Social History Tobacco Use Types Packs/Day Years Used Date Smoking Tobacco: Never Smokeless Tobacco: Never Alcohol Use Standard Drinks/Week Comments No 0 (1 standard drink = 0.6 oz pur e alcohol) Comments Unknown Sex and Gender Information Value Date Recorded Sex Assigned at Not on file Legal Sex Female 8:11 AM EST Gender Identity Not on file Sexual Orientation Not on file documented as of this encounter Plan of Treatment Not on file documented as of this encounter Visit Diagnoses Not on filedocumented in this encounter Care Teams Improvement Leader Relationship Specialty Start Date End Date Rocio Dahl MD PCP - General 05/05/07 documented as of this encounter
--- OUTSIDE RECORDS SUMMARY | 2025-02-03 08:11 | XMS_ITS | Encounter Summary ---
Author Organization [facility] Address [address] [place] [address] Care Team Providers Care Entry Level Marketing Assistant Name Role Phone Rocio Dahl MD Primary Care Provider [phone] Source Comments In the event this information is protected by the Federal Confidentiality of Alcohol and Drug AbusePatient Records regulations: The Federal rules restrict any use of the information to criminally investigate or prosecute any alcohol or drug abuse patient.[facility] Encounter Details Date Type Department Care Team (Late st Contact Info) Description 03/17/2018 Get Medical Advice [facility] [address] [id number] Andrews Fish MD [address] [place] [address] RE: Visit Follow Up Question [...] on filedocumented in this encounter Care Teams Entry Level Marketing Assistant Relationship Specialty Start Date End Date Rocio Dahl MD PCP - General 05/05/07 documented as of this encounter
--- OUTSIDE RECORDS SUMMARY | 2025-02-03 08:12 | XMS_ITS | Encounter Summary ---
Author Organization [facility] Address [address] [place] [address] Care Team Providers Care Target Aircraft Controller Name Role Phone Rocio Dahl MD Primary Care Provider [phone] Source Comments In the event this information is protected by the Federal Confidentiality of Alcohol and Drug AbusePatient Records regulations: The Federal rules restrict any use of the information to criminally investigate or prosecute any alcohol or drug abuse patient.[facility] Encounter Details Date Type Department Care Team (Late st Contact Info) Description 02/13/2018 Abstract Neurology [address] [place], [place] [id number] (Historical), Unknown Social History Tobacco Use Types Packs/Day Years Used Date Smoking Tobacco: Never Alcohol Use Standard Drinks/Week Comments Not Asked 0 (1 standard drink = 0.6 oz [...] on filedocumented in this encounter Care Teams Target Aircraft Controller Relationship Specialty Start Date End Date Rocio Dahl MD PCP - General 05/05/07 documented as of this encounter
--- OUTSIDE RECORDS SUMMARY | 2025-02-03 08:12 | XMS_ITS | Clinical Summary ---
Author Organization [facility] Address [address] [place] [address] Phone Care Team Providers Care Scale Tank Operator Name Role Phone Unavailable Primary Care Provider Unavailabl e Social History Tobacco Use Types Packs/Day Years Used Date Smoking Tobacco: Never Assessed Comments Unknown Sex and Gender Information Value Date Recorded Sex Assigned at Not on file Legal Sex Female 8:03 PM EST Gender Identity Not on file Sexual Orientation Not on file Plan of Treatment Not on file
--- OUTSIDE RECORDS SUMMARY | 2025-02-03 08:12 | XMS_ITS | Clinical Summary ---
Author Organization [facility] Address [address] [place] [address] Care Team Providers Care Membership Advisor Name Role Phone Rocio Dahl MD Primary Care Provider [phone] Allergies Active Allergy Reactions Criticality Noted Date Comments Elemental Sulfur Itching 02/19/2020 Escitalopram Itching,Rash Low 08/19/2007 Other reaction(s): Redness of Skin Gluten Meal GI intolerance,Itchin g 03/10/2018 Hydrochlorothiazide Rash Low 02/19/2020 Ibuprofen Rash,GI intolerance Low 01/29/2019 Latex Itching,Rash Low 02/08/2011 Added based on information entered during case entry, please review and add reactions, type, and severity as needed Morphine Other,GI intolerance 07/04/2007 Other reaction(s): Hallucinating, vomiting Sulfa Antibiotics Itching,Hives,Rash Low 07/04/2007 hands red Sulfamethoxazole-Trimethop rim Rash Low 02/03/2023 Triamterene Rash Medium 01/29/2019 Wheat Itching 02/08/2011 Wheat gluten Medications aspirin 81 MG EC tablet Take 81 mg by mouth in the morning. Active calcium carbonate 1500 (600 Ca) MG tablet Take 600 mg by mouth in the morning and 600 mg in the evening. Take with meals. Active cholecalciferol (Vitamin D-3) 50 MCG (1999) capsule Take 2,000 Units by mouth Active citalopram (CeleXA) 20 MG tablet Take 20 mg by mouth in the morning. Active cyanocobalamin (Vitamin B-12) 1000 MCG tablet Take 1 tablet by mouth Daily Active Docusate Sodium (DSS) 100 MG capsule Take 1 capsule by mouth Daily Active estradiol (Estrace) 0.1 MG/GM vaginal cream Insert 1 g into the vagina 3 Active famotidine (Pepcid) 20 MG tablet Take 20 mg by mouth. 3 Active fluticasone (Flonase) 50 MCG/ACT nasal spray Administer 1 spray into affected nostril(s) Daily 2 Active levothyroxine (Synthroid, Levoxyl) 50 MCG tablet 3 Active pantoprazole (ProtoNix) 20 MG EC tablet Take 20 mg by mouth. 3 Active pilocarpine (Salagen) 5 MG tablet Take 5 mg by mouth in the morning and 5 mg at noon and 5 mg in the evening. Active pravastatin (Pravachol) 40 MG tablet Take 40 mg by mouth in the morning. Active Topiramate (TOPAMAX PO) Take 50 mg by mouth 3 Active tiZANidine (Zanaflex) 2 MG tabletIndicatio ns:Spasm of muscle of lower back Take 1 tablet (2 mg) by mouth every 8 (eight) hours if needed for muscle spasms for up to 10 days. 30 tablet 3 Active traMADol ER (Ultram-ER) 100 MG 24 hr tablet Take by mouth Daily as needed Do not crush, chew, or split. Active Active Problems Problem Noted Date Diagnosed Date Epigastric pain 08/17/2024 History of arthritis 08/17/2024 History of colon polyps 08/17/2024 Internal hemorrhoids 08/17/2024 Intestinal metaplasia of stomach 08/17/2024 Low vitamin B12 level 08/17/2024 TMJ (temporomandibular joint disorder) 5 Primary osteoarthritis of right ankle 08/17/2024 Atrial fibrillation 02/11/2024 Gross hematuria 11/13/2023 Asymptomatic microscopic hematuria 02/03/2023 Chronic back pain 02/03/2023 Mixed stress and urge urinary incontinence 02/03 Localized, primary osteoarthritis of shoulder re gion 02/09/2022 Chronic renal disease, stage III 10/26/2021 Diverticulosis 03/03/2021 Tubular adenoma of colon 03/03/2021 Vitamin D deficiency disease 07/21/2018 Cortical senile cataract 01/31/2015 Sleep apnea 08/21/2012 Overview (08/17/2024): USES CPAP Gastritis 05/05/2012 Hypertension 06/08/2011 Diaphragmatic hernia 04/24/2011 Dysthymic disorder 04/24/2011 History of benign neoplasm of stomach 04/24/2011 Irritable bowel syndrome 04/24/2011 Palpitations 04/24/2011 Sinusitis, chronic 04/24/2011 Hypercholesterolemia 02/08/2011 Hypothyroidism 02/08/2011 Diverticulitis 02/08/2011 Migraine 02/08/2011 Encounters Date Type Department Care Team Description 11/26/2024 9:30 AM EDT [facility] [address] [place] [address] Chavez Canales, BAUTISTA Grade 2 ankle sprain (Primary Dx); Ankle instability, right; Right foot drop 11/26/2024 [facility]amboo [facility] [address] [place] [address] Chavez Canales DPM 11/26/2024 Travel from Last 3 Months Family History Medical History Relation Name Comments Diabetes Child Heart disease Maternal Grandfather Hyperlipidemia Maternal Grandfather COPD Mother Diabetes Mother Heart failure Mother Diabetes Paternal Grandmother Heart disease Paternal Grandmother Hypertension Paternal Grandmother Breast cancer Sister Diabetes Sister Relation Name Status Comments Child Father Maternal Grandfather Mother Paternal Grandmother Sister Social History Tobacco Use Types Packs/Day Years Used Date Smoking Tobacco: Never Smokeless Tobacco: Never Tobacco Cessation:Counseling Given: Not Answered Alcohol Use Standard Drinks/Week Comments Never 0 (1 standard drink = 0.6 oz pure alcohol) caffeine: 1-2 cups per day coffee Comments Unknown Sex and Gender Information Value Date Recorded Sex Assigned at Not on file Legal Sex Female 6:41 PM EDT Gender Identity Not on file Sexual Orientation Not on file Last Filed Vital Signs Vital Sign Reading Time Taken Comments Blood Pressure 140/73 11/26/2024 9:21 AM EDT Pulse 75 11/26/2024 9:21 AM EDT Temperature 36.4 C (97.5 F) 02/03/2023 11:01 AM EDT Respiratory Rate 18 08/17/2024 1:49 PM EST Oxygen Saturation 96% 02/03/2023 11:01 AM EDT Inhaled Oxygen Concentration - - Weight 96.2 kg (212 lb) 11/26/2024 9:21 AM EDT Height 163.8 cm (5' 4.5 ) 11/26/2024 9:21 AM EDT Body Mass Index 35.83 11/26/2024 9:21 AM EDT Plan of Treatment Health Maintenance Due Date Last Done Comments Influenza Vaccine (#1) 2025 4, 05/06/2023, 05/03/2022, Additional history exists Pneumococcal Vaccine: 65+ Years Completed 6, 03/31/2011 [facility] Address: [facility] [id number] [place] [address] MEDICARE Care Teams Membership Advisor Relationship Specialty Start Date End Date Rocio Dahl MD [address] [phone] PCP - General Family Medicine 08/17/24
--- OUTSIDE RECORDS SUMMARY | 2025-02-03 08:12 | XMS_ITS | Encounter Summary ---
Author Organization [facility] Address [address] [place] [address] Care Team Providers Care Licensed Real Estate Broker Name Role Phone Rocio Dahl MD Primary Care Provider [phone] Reason for Referral * Evaluate and Treat (Routine) - Closed Specialty Diagnoses / Procedures Referred By Contac t Referred To Contact Otolaryngology Diagnoses Acute suppurative otitis media of left ear without spontaneous rupture of tympanic membrane, recurrence not specified Pastora Flores, DRYING RACK CHANGER [address] [place] [address] Phone: tel: fax: Grayson Hutchinson Jr., DO [address] [place] [address] Phone: tel:[phone] fax:[phone] Referral ID Status Reason Start Date Expiration Date V isits Requested Visits Authorized [id number] Closed Specialty Services Required/Flower ent's Best Interest 04/24/2023 04/23/2024 1 1 Encounter Details Date Type Department Care Team (Latest Contact Info) Description 04/24/2023 Transcribe Orders [facility] [address] [place] [id number] Grayson Hutchinson Jr., DO [address] [place] [address] Acute suppurative otitis media of left ear without spontaneous rupture of tympanic membrane, recurrence not specified (Primary Dx) Social History Tobacco Use Types Packs/Day Years Used Date Smoking Tobacco: Never Assessed Comments Unknown Sex and Gender Information Value Date Recorded Sex Assigned at Not on file Legal Sex Female 8:28 AM EDT Gender Identity Not on file Sexual Orientation Not on file documented as of this encounter Plan of Treatment Scheduled Referrals Name Type Priority Associated Diagnoses Order Schedule Ambulatory referral to ENT Outpatient Referral Routine Acute suppurative otitis media of left ear without spontaneous rupture of tympanic membrane, recurrence not specified 1 Occurrences starting 04/24/2023 until 04/23/2024 documented as of this encounter Visit Diagnoses Diagnosis Acute suppurative otitis media of left ear without spontaneous rupture of tympanic membrane, recurrence not specified- Primary documented in this encounter Care Teams Licensed Real Estate Broker Relationship Specialty Start Date End Date Rocio Dahl MD [address] [place] [address] PCP - General Family Medicine 04/24/23 documented as of this encounter
--- OUTSIDE RECORDS SUMMARY | 2025-02-03 08:13 | XMS_ITS | Clinical Summary ---
Author Organization [facility] Address [address] [place] [address] Care Team Providers Care Force Variation Equipment Tender Name Role Phone Rocio Dahl MD Primary Care Provider [phone] Allergies Active Allergy Reactions Criticality Noted Date Comments Escitalopram Itching,Rash Low 08/19/2007 Other reaction(s): Redness of Skin Other reaction(s): Redness of Skin Gluten Protein GI intolerance,Itchin g,Nausea And Vomiting Low 03/10/2018 Hydrochlorothiazide Rash Low 02/19/2020 Ibuprofen GI intolerance,Rash Low 01/29/2019 Latex Itching,Rash Low 02/08/2011 Added based on information entered during case entry, please review and add reactions, type, and severity as needed Added based on information entered during case entry, please review and add reactions, type, and severity as needed Morphine GI intolerance 07/04/2007 Other reaction(s): Other (See Comments) Other reaction(s): Hallucinating, vomiting Other reaction(s): Hallucinating, vomiting Sulfamethoxazole-Trimethop rim Rash Low 02/03/2023 Triamterene Rash Medium 01/29/2019 Wheat Bran Itching 02/08/2011 Wheat gluten Social History Tobacco Use Types Packs/Day Years Used Date Smoking Tobacco: Never Assessed [place] Safety & Environment Answer Date Rec orded Fear of Current or Ex-Partner Not on file Emotionally Abused Not on file 08/23/2023 Physically Abused Not on file 08/23/2023 Sexually Abused Not on file 08/23/2023 Physically or Sexually Abused Not on file Comments Unknown Sex and Gender Information Value Date Recorded Sex Assigned at Female 03/22/2023 10:41 AM EDT Legal Sex Female 10:40 AM EDT Gender Identity Female 03/22/2023 10:41 AM EDT Sexual Orientation Heterosexual or Straight 03/02 9:05 PM EDT Plan of Treatment Health Maintenance Due Date Last Done Comments Medicare Annual Wellness (AWV) 1944 Depression Screening 1956 Fall Risk Screening 2009 Adult Tetanus 12/31/2023 12/30/2013 COVID-19 Vaccine ( season) 2024 05/08/2022, 06/27/2021 Influenza Vaccine (#1) 2025 , 05/02/2021, 03/15/2020, Additional history exists Pneumococcal Vaccine: 50+ Years Completed 03/01/2016, 03/31/2011 Zoster Vaccines Completed 05/12/2020, 03/01, 10/24/2011 HIB Vaccines Aged Out No longer eligi ble based on patient's age to complete this topic HPV Vaccines Aged Out No longer eligi ble based on patient's age to complete this topic IPV Vaccines Aged Out No longer eligi ble based on patient's age to complete this topic Meningococcal B Vaccine Aged Out No l onger eligible based on patient's age to complete this topic Meningococcal Vaccine Aged Out No trevor heriberto eligible based on patient's age to complete this topic Rotavirus Vaccines Aged Out No longer eligible based on patient's age to complete this topic Insurance MEDICARE Care Teams Force Variation Equipment Tender Relationship Specialty Start Date End Date Rocio Dahl MD Sage BORGES PCP - General 03/22/23
--- NOTE | 2025-02-03 08:16 | PM.CN ---
Consult Note: HPI Data of Consult Patient: known to practice within the last 3 years Requesting Physician: Gabrielle Boswell NP Primary Care Provider: Rocio Dahl MD Consult Narrative Reason for consult: low back pain Narrative: Mary Jane Jefferson a pleasant 79 year old female presents for evaluation of chronic low back pain present >12 months unresponsive to > 6 weeks of PT/HEP, heat, ice, tylenol, cannot take NSAIDs on eliquis. pt noting increased right leg pain, numbness, tingling, and weakness. pain today 2/10 increasing to 6/10 with standing, walking, lifting. utilizing tylenol PRN, has not recently taken a tramadol. rod falls/injury. prior right sciatic nerve block provided >50% improvement in pain and functional ability greater than 3 months and pt would like to discuss repeating. cc:: CC: Gabrielle Boswell NP Review of Systems ROS Musculoskeletal Reports: back pain and extremity pain PFSH PFSH Medical History Irregular heartbeat ?I49.9 - Cardiac arrhythmia, unspecified (ICD-10) Sleep apnea ?G47.30 - Sleep apnea, unspecified (ICD-10) Hiatal hernia ?K44.9 - Diaphragmatic hernia without obstruction or gangrene (ICD-10) Acid reflux ?K21.9 - Gastro-esophageal reflux disease without esophagitis (ICD-10) Osteoarthritis ?M19.90 - Unspecified osteoarthritis, unspecified site (ICD-10) TMJ (dislocation of temporomandibular joint) ?S03.00XA - Dislocation of jaw, unspecified side, initial encounter (ICD-10) Hypothyroid ?E03.9 - Hypothyroidism, unspecified (ICD-10) Surgical History History of bladder surgery ?Z98.890 - Other specified postprocedural states (ICD-10) History of knee replacement ?Z96.659 - Presence of unspecified artificial knee joint (ICD-10) History of hip replacement ?Z96.649 - Presence of unspecified artificial hip joint (ICD-10) History of cholecystectomy ?Z90.49 - Acquired absence of other specified parts of digestive tract (ICD-10) History of ankle surgery ?Z98.890 - Other specified postprocedural states (ICD-10) H/O: hysterectomy ?Z90.710 - Acquired absence of both cervix and uterus (ICD-10) H/O hernia repair ?Z98.890 - Other specified postprocedural states (ICD-10) ?Z87.19 - Personal history of other diseases of the digestive system (ICD-10) Meds Home Medications and Allergies Home Medications ?Medication ?Instructions ?Recorded ?Confirmed ?Type aspirin 81 mg capsule 81 mg PO DAILY 08/26/23 08/24/24 History calcium-magnesium 300 mg-300 mg 1 tab PO DAILY 08/26/23 08/24/24 History tablet cholecalciferol (vitamin D3) 50 50 mcg PO BID 08/26/23 08/24/24 History mcg (2,000 unit) capsule citalopram 20 mg tablet 20 mg PO DAILY 08/26/23 08/24/24 History cyanocobalamin (vitamin B-12) 1,000 mcg PO DAILY 08/26/23 08/24/24 History 1,000 mcg capsule docusate sodium 100 mg capsule 100 mg PO DAILY 08/26/23 08/24/24 History estradiol 0.01% (0.1 mg/gram) 1 g vaginal QWEEK 08/26/23 08/24/24 History vaginal cream fexofenadine 180 mg tablet 180 mg PO DAILY 08/26/23 08/24/24 History fluticasone propionate 50 1 spray intranasal DAILY PRN 08/26/23 08/24/24 History mcg/actuation nasal allergy symptoms spray,suspension levothyroxine 50 mcg capsule 50 mcg PO DAILY 08/26/23 08/24/24 History pilocarpine HCl 5 mg tablet 5 mg PO TID 08/26/23 08/24/24 History pravastatin 40 mg tablet 40 mg PO DAILY 08/26/23 08/24/24 History psyllium husk 0.4 gram capsule 0.4 g PO DAILY 08/26/23 08/24/24 History (Metamucil) topiramate 50 mg tablet 50 mg PO DAILY 08/26/23 08/24/24 History apixaban 5 mg tablet (Eliquis) 5 mg PO BID 02/03/24 08/24/24 History diltiazem HCl 120 mg 120 mg PO Q24H 03/25/24 08/24/24 History capsule,extended release 24 hr tramadol 50 mg tablet 50 mg PO BID PRN pain #14 tabs 08/12/24 08/24/24 Rx Allergies Allergy/AdvReac Type Severity Reaction Status Date / Time latex Allergy Irritable Verified 08/24/24 09:21 morphine Allergy Vomiting Verified 08/24/24 09:21 Sulfa (Sulfonamide Allergy Rash Verified 08/24/24 09:21 Antibiotics) Exam Constitutional Documenting provider has reviewed patient's vital signs: yes Common normals: no apparent distress, oriented x3, healthy appearing, alert and well nourished General appearance: cooperative HENCO Common normals: normocephalic, hearing grossly normal bilaterally and moist oral mucous membranes Head and scalp: normocephalic Eye Common normals: PERRL Pupil: PERRL Neck & C-Spine Common normals: full ROM General: normal visual inspection Chest Common normals: inspection of chest normal Respiratory Common normals: normal respiratory effort, no retractions and no use of accessory muscles Back & Pelvis Lumbar spine/lower back: normal to inspection, ROM limited, pain with ROM and straight leg raise positive right Sacroiliac joints: SI joint(s) abnormal Other: strength 5/5 in BLE positive right SIJ exam, thomas(patricks), gaenslens, thigh thrust, compression test increased pain right L5/S1 decreased sensation to right L5/S1 Extremity Common normals: normal to inspection and full ROM Neuro Common normals: oriented x3 Sensorium/orientation: alert Motor exam: strength 5/5 throughout and no movement abnormalities noted Psych Common normals: mental status grossly normal, thought process normal, cooperative, affect normal, speech normal and activity/motor behavior normal Speech: normal speech Thought process: normal thought process Results Additional Findings Additional findings: If on a controlled substance or opioids, I have checked an [place]AR[place] report on this patient and there are no aberrancies noted in the prescribing history.??If on a controlled substance or opioid a drug screen was completed and reviewed within the last year, and if there has not been a drug screen completed we ordered one today to monitor higher risk, state monitored pain medication use. As part of providing excellent, safe, comprehensive care, the following was completed at our patient's visit: 1. A medication reconciliation and review to ensure accurate knowledge of current/active medications, including asking our patients to inform us about any [id number] medications or herbal remedies/nutritional supplements/alternative remedies. 2. A review to specifically ensure our patients have had annual screening for screening for depression, screening for tobacco use, and screening for unhealthy alcohol use. For concerning screenings had a discussion with the patient, provided patient education, and recommended follow-up with primary care provider when appropriate. If patient noted with a risk of falling, they received education on strength, gait, and balance training to prevent future risk of falling. Portions of this note may have been carried over from the previous visit and updated as appropriate. Please note this office utilizes paper charting in addition to the electronic medical record. A list of current medications, vitals, and PMH is available there as the clinical staff outside of myself do not have access to [facility] charting during the clinic day operations. As part of providing quality comprehensive care the current medications, vitals, and PMH were reviewed in the paper chart. Assessment and Plan Assessment and Plan (1) Right sided sciatica: Assessment and Plan: The patient has had over 3 months of moderate to severe right low back and right leg pain with functional impairment and inadequate response to conservative care including NSAIDS (unless there are contraindication such as concurrent blood thinners), multiple oral or topical pain medications, and home exercise program/physical therapy.? Patient has completed >6 weeks of guided home exercise program and/or formal physical therapy program without relief of their symptoms.? The Oswestry Disability Index was completed, and the patient scored a 32%.? The patient noted the following:?? moderate to severe pain impacting ADLs, standing, walking, sleeping, social life, travel We discussed the risks and benefits of the procedure with the patient, and we are NOT planning on using sedation as outlined in the guidelines from Medicare unless there is a documented reason that sedation would be strongly recommended.?? ?The procedure will be completed with fluroscopic guidance.? (2) Lumbar radiculopathy: (3) Sacroiliitis: Plan repeat right sciatic nerve block, prior injection provided at least 50% improvement for 3 months continue current medications continue HEP as tolerated f/u 2 weeks after injection
== END 2025-02-03 08:10 | disposition home or self-care (01) ==
LOC: PM 08:09
PROVIDERS: PCP Family Medicine; Visit Provider Nurse Practitioner
DX: M54.31 Sciatica, right side (principal); M54.16 Radiculopathy, lumbar region; M46.1 Sacroiliitis, not elsewhere classified
CPT/HCPCS: G0463

== ENCOUNTER 2025-02-08 08:42 | Day surgery (SDC) | payer MEDICARE, SELFPAY ==
--- OUTSIDE RECORDS SUMMARY | 2025-02-05 10:00 | XMS_ITS | Encounter Summary ---
Author Organization [facility] Address [address] [place] [address] Care Team Providers Care Spot Welder Name Role Phone Rocio Dahl MD Primary Care Provider + [phone] Reason for Visit * Reason Comments Sore Throat 3 weeks. Sore throat , fatigue, bilateral ear itching, dizziness, post nasal drip, productive cough. Pt felt a little better with Augmentin during last visit then symptoms came back. Encounter Details Date Type Department Care Team (Late st Contact Info) Description 02/05/2025 10:00 AM EDT Office Visit [facility] [place] [address] [place] [address] Cinthya Fortune PA-C [address] [place] [address] Cough, unspecified type (Primary Dx); Sore throat; Nasal congestion Social History Tobacco Use Types Packs/Day Years Used Date Smoking Tobacco: Never Smokeless Tobacco: Never Alcohol Use Standard Drinks/Week Comments Not Currently 0 (1 standard drink = 0.6 oz pur e alcohol) Comments Unknown Sex and Gender Information Value Date Recorded Sex Assigned at Not on file Legal Sex Female 8:28 AM EDT Gender Identity Not on file Sexual Orientation Not on file documented as of this encounter Last Filed Vital Signs Vital Sign Reading Time Taken Comments Blood Pressure 136/65 02/05/2025 9:34 AM EDT Pulse 76 02/05/2025 9:34 AM EDT Temperature 36.9 C (98.5 F) 02/05/2025 9:34 AM EDT Respiratory Rate 16 02/05/2025 9:34 AM EDT Oxygen Saturation 97% 02/05/2025 9:34 AM EDT Inhaled Oxygen Concentration - - Weight 97.1 kg (214 lb) 02/05/2025 9:34 AM EDT Height - - Body Mass Index 36.73 05/02/2023 8:55 AM EDT documented in this encounter Patient Instructions * Attachments The following attachments cannot be sent through Care Everywhere. * Cough (Danish) documented in this encounter Progress Notes * Cinthya Fortune PA-C - 02/05/2025 9:55 AM EDT Images from the original note were not included. Patient Name: [facility] Location: [place] [facility] [address] [address] Date Of : Date Of Visit: 1945 02/05/2025 MRN# Provider: [id number] Cinthya Fortune PA-C Chief Complaint Patient presents with Sore Throat 3 weeks. Sore throat, fatigue, bilateral ear itching, dizziness, post nasal drip, productive cough.Pt felt a little better with Augmentin during last visit then symptoms came back. Assessment & Plan 1. Cough, unspecified type XR Chest AP/PA and LAT doxycycline hyclate (VIBRAMYCIN) 100 MG capsule 2. Sore throat clotrimazole (MYCELEX) 10 mg darling 3. Nasal congestion doxycycline hyclate (VIBRAMYCIN) 100 MG capsule No follow-ups on file. Medical Decision Making Patient with recurrence of symptoms from visit on January 15. I did perform a chest x-ray here today given her age and her symptoms. No acute cardiopulmonary process noted. Will see if doxycycline is more effective in treating her symptoms of the nasal congestion, sore throat, cough. I do suspect oralthrush again so clotrimazole darling sent to pharmacy This office note has been dictated. This dictation was generated using [employer] voice recognition software. Please excuse any grammatical or spelling errors that may have occurred using the system. Imaging Documentation I have personally reviewed 2 views of the chest. My impression is no acute cardiopulmonary process Additional Clinical Comments Discussed over the counter medications for symptomatic management and potential side effects of medications. Educated patient and/or guardian about signs and symptoms that would warrant immediate evaluation in the emergency room. Recommended that they should return to urgent care, make an appointment with their PCP, or go to the emergency room if symptoms persist or get acutely worse. Subjective 79 y.o. female presents with Sore Throat (3 weeks. Sore throat, fatigue, bilateral ear itching, dizziness, post nasal drip, productive cough. Pt felt a little better with Augmentin during last visit then symptoms came back.) 79-year-old female presents urgent care today for follow-up from her visit on January 15. At that timepatient was diagnosed with bacterial URI and prescribed Augmentin. Patient states that the Augmentin did help with her symptoms slightly but states that she never got 100% better. States that when she got off the antibiotics symptoms started to come back again. No known fever. States that she has ear pain, congestion, sore throat, sore tongue but states that the coating does scrape off. States that there is a cough as well. Dizziness when she stands up Review Of Systems Review of Systems Constitutional: Negative for fever. HENT: Positive for congestion, ear pain, rhinorrhea and sore throat. Respiratory: Positive for cough. Negative for shortness of breath. Cardiovascular: Negative for chest pain. Neurological: Positive for dizziness. Medical History Past Medical History: Diagnosis Date Disease of thyroid gland Hyperlipidemia History reviewed. No pertinent surgical history. Problem List[1] Social History Social History[2] Family History Family History Problem Relation Age of Onset Diabetes Mother Diabetes Sister Diabetes Son Objective Physical Exam BP 136/65 (BP Location: Right arm, Patient Position: Sitting, BP Cuff Size: Adult) Pulse 76 Temp 98.5 ??F (36.9 ??C) (Oral) Resp 16 Wt 97.1 kg (214 lb) SpO2 97% BMI 36.73 kg/m?? Vision/Hearing Exam:No results found. Physical Exam Vitals and nursing note reviewed. Constitutional: General: She is not in acute distress. Appearance: Normal appearance. She is well-developed. She is not ill-appearing, toxic-appearing or diaphoretic. Interventions: She is not intubated. HENT: Head: Normocephalic and atraumatic. Right Ear: Hearing, tympanic membrane, ear canal and external ear normal. Left Ear: Hearing, tympanic membrane, ear canal and external ear normal. Nose: No mucosal edema. Mouth/Throat: Mouth: Mucous membranes are moist. Mucous membranes are not pale and not dry. Pharynx: Oropharynx is clear. Uvula midline. No pharyngeal swelling, oropharyngeal exudate, posterior oropharyngeal erythema or uvula swelling. Tonsils: No tonsillar exudate or tonsillar abscesses. Comments: Whitish discharge that scrapes off noted on tongue. Tongue appears to be more erythematous Cardiovascular: Rate and Rhythm: Normal rate and regular rhythm. Heart sounds: Normal heart sounds, S1 normal and S2 normal. Pulmonary: Effort: Pulmonary effort is normal. No tachypnea, accessory muscle usage or respiratory distress. She is not intubated. Breath sounds: Normal breath sounds. Neurological: Mental Status: She is alert. Procedure Notes Procedures Results No results found for this or any previous visit (from the past week). No orders to display Orders Placed This Visit Orders Placed This Encounter Procedures XR Chest AP/PA and LAT Medication List At End Of Visit Current Medications[3] There are no Patient Instructions on file for this visit. [1] Patient Active Problem List Diagnosis Acute suppurative otitis media of left ear without spontaneous rupture of tympanic membrane ROSETTE on CPAP Bruxism (teeth grinding) Hearing loss [2] Social History Tobacco Use Smoking status: Never Smokeless tobacco: Never Vaping Use Vaping status: Never Used Substance Use Topics Alcohol use: Not Currently Drug use: Never [3] Current Outpatient Medications Medication Sig Dispense Refill apixaban 5 mg Tab Take 1 (one) tablet (5 mg total) by mouth 2 (two) times a day . aspirin 81 MG EC tablet -81 Active betamethasone valerate (VALISONE) 0.1 % cream Apply topically daily . 30 g 0 calcium carbonate (OS-ASHLY) 600 mg calcium (1,500 mg) tablet Take 1 (one) tablet (600 mg total) by mouth 2 (two) times a day with meals . cholecalciferol, vitamin D3, 25 mcg (1,000 unit) capsule Take 1 (one) capsule (1,000 Units total) by mouth daily . citalopram (CELEXA) 20 MG tablet Take 1 (one) tablet (20 mg total) by mouth every night at bedtime . cyanocobalamin (B-12) 1000 MCG tablet Take 1 (one) tablet (1,000 mcg total) by mouth daily . docusate sodium (COLACE) 100 MG capsule Take 1 (one) capsule (100 mg total) by mouth daily . estradioL (ESTRACE) 0.01 % (0.1 mg/gram) vaginal cream Insert 1 (one) g into the vagina daily . fluticasone propionate (FLONASE) 50 mcg/actuation nasal spray Instill 1 (one) spray into each nostril daily . levothyroxine (SYNTHROID, LEVOTHROID) 50 MCG tablet TAKE 1 TABLET EVERY DAY FOR HYPOTHYROIDISM loratadine 10 mg cap Take by mouth . pantoprazole (PROTONIX) 20 MG tablet Take 1 (one) tablet (20 mg total) by mouth daily . pilocarpine (SALAGEN) 5 MG tablet Take 1 (one) tablet (5 mg total) by mouth 3 (three) times a day . pravastatin sodium (PRAVASTATIN ORAL) Take 40 mg by mouth . psyllium (METAMUCIL) 0.52 gram capsule Take by mouth See Admin Instructions . topiramate (TOPAMAX) 50 MG tablet Take 1 (one) tablet (50 mg total) by mouth daily . ALPRAZolam (NIRAVAM) 0.5 MG dissolvable tablet Dissolve 1 (one) tablet (0.5 mg total) on top of tongue . amoxicillin-clavulanate (AUGMENTIN) 875-125 mg per tablet Take 1 (one) tablet by mouth 2 (two) times a day . (Patient not taking: Reported on 02/05/2025 .) 20 tablet 0 clotrimazole (MYCELEX) 10 mg darling Take1 (one) tablet (10 mg total)by mouth 5 (five) times a day for 10 days.Allow darling to dissolve slowly in the mouth. 50 tablet 0 doxycycline hyclate (VIBRAMYCIN) 100 MG capsule Take 1 (one) capsule (100 mg total) by mouth 2 (two) times a day for 10 days . 20 capsule 0 fexofenadine (MELANIA) 180 MG tablet Take 1 (one) tablet (180 mg total) by mouth once . (Patient not taking: Reported on 02/05/2025 .) No current facility-administered medications for this visit. documented in this encounter Plan of Treatment Not on file documented as of this encounter Results * XR Chest AP/PA and LAT (02/05/2025 10:08 AM EDT) Anatomical Region Laterality Modality Chest Digital Radiogra phy 02/05/2025 10:3 0 AM EDT Impressions 02/05/2025 10:31 AM EDT There is no acute cardiopulmonary process. Workstation ID: [id number] Narrative 02/05/2025 10:31 AM EDT EXAMINATION: XR CHEST AP/PA AND LAT HISTORY: ORDERING SYSTEM PROVIDED HISTORY: Cough, unspecified type, TECHNOLOGIST PROVIDED HISTORY: Illness/Other Reason for exam: cough Cancer History: u Surgery, RadiationHistory: u Encounter Type: Initial Additional signs and symptoms: congestion x 1 month ORDERING SYSTEM PROVIDED DIAGNOSIS CODES: R05.9 Cough, unspecified type COMPARISON: None. TECHNIQUE: PA and lateral views of the chest performed. FINDINGS: The trachea is midline. The heart size is normal. There is mild atheromatous calcification at the aortic arch. The hilar shadows are unremarkable. There is no consolidation, pleural effusion or pulmonary vascular congestion. There is no pneumothorax or acute osseous abnormality. The bony structures are osteopenic. 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 Surgical clips within the right upper abdomen suggesting a cholecystectomy. Procedure Note Ricardo Barger MD - 02/05/2025 EXAMINATION: XR CHEST AP/PA AND LAT HISTORY: ORDERING SYSTEM PROVIDED HISTORY: Cough, unspecified type, TECHNOLOGIST PROVIDED HISTORY: Illness/Other Reason for exam: cough Cancer History: u Surgery, RadiationHistory: u Encounter Type: Initial Additional signs and symptoms: congestion x 1 month ORDERING SYSTEM PROVIDED DIAGNOSIS CODES: R05.9 Cough, unspecified type COMPARISON: None. TECHNIQUE: PA and lateral views of the chest performed. FINDINGS: The trachea is midline. The heart size is normal. There is mildatheromatous calcification at the aortic arch. The hilar shadows areunremarkable. There is no consolidation, pleural effusion or pulmonaryvascular congestion. There is no pneumothorax or acute osseousabnormality. The bony structures are osteopenic. There is a bridgingparavertebral ossification along the lower thoracic spine. Surgical clipswithin the right upper abdomen suggesting a cholecystectomy. IMPRESSION: There is no acute cardiopulmonary process. Workstation ID: [id number] Cinthya Fortune PA-C [facility] Final Result documented in this encounter Visit Diagnoses Diagnosis Cough, unspecified type- Primary Sore throat Acute pharyngitis Nasal congestion Other diseases of nasal cavity and sinuses documented in this encounter Care Teams Spot Welder Relationship Specialty Start Date End Date Rocio Dahl MD [address] [place] [address] PCP - General Family Medicine 04/24/23 documented as of this encounter
[2025-02-08 08:46] VITALS: BP 122/75; PULSE 80; TEMP 36.3; O2SAT 98
--- OUTSIDE RECORDS SUMMARY | 2025-02-08 08:46 | XMS_ITS | Clinical Summary ---
Author Organization [facility] Address [address] [place] [id number] Care Team Providers Care Personal Lines Insurance Advisor Name Role Phone Rocio Dahl MD Primary Care Provider [phone] Allergies Active Allergy Reactions Criticality Noted Date [...] day . 20 tablet 01/16/20 25 Active Additional Information Patient not taking.Reported on 02/05/2025 betamethasone valerate (VALISONE) 0.1 % cream Apply topically daily . 30 g 01/16/20 25 026 Active doxycycline hyclate (VIBRAMYCIN) 100 MG capsuleIndicati ons:Cough, unspecified type,Nasal congestion Take 1 (one) capsule (100 mg total) by mouth 2 (two) times a day for 10 days . 20 capsule 02/06/20 25 025 Active clotrimazole (MYCELEX) 10 mg trocheIndicatio ns:Sore throat Take1 (one) tablet (10 mg total)by mouth 5 (five) times a day for 10 days.Allow darling to dissolve slowly in the mouth. 50 tablet 02/06/20 25 025 Active famotidine (PEPCID) 20 MG tablet Take [...] Encounters Date Type Department Care Team Description 02/05/2025 10:00 AM EDT Office Visit [facility] [place] [address], [place] [phone] Cinthya Fortune PA-C Cough, unspecified type (Primary Dx); Sore throat; Nasal congestion 01/15/2025 9:15 AM EDT Office Visit [facility] [address], [place] [phone] Angelito Toribio PA-C Bacterial URI (Primary Dx); [...] (214 lb) 02/05/2025 9:34 AM EDT Height 162.6 cm (5' 4 ) 05/02/2023 8:55 AM EDT Body Mass Index 36.73 05/02/2023 8:55 AM EDT Plan of Treatment [...] Additional history exists Influenza Vaccine (#1) 2025 , 05/06/2023, 05/03/2022, Additional history exists Mammogram 05/08/2025 05/08/2024, 10/29, 03/13/2018 Pneumococcal Vaccine: Age 50+ Completed 03/01/2016, 03/31/2011 Zoster Vaccines Completed 05/12/2020, 03/01, 10/24/2011 Procedures Procedure Name Priority Date/Time Associated Diagnosis Comments XR CHEST AP/PA AND LAT CAROLINE 02/05/2025 10:08 AM EDT Cough, unspecified type from Last 3 Months Results * XR Chest AP/PA and LAT [...] [facility] Final Result from Last 3 Months Insurance MEDICARE PART A & B [facility] [employer] Care Teams Personal Lines Insurance Advisor Relationship Specialty Start Date End Date Rocio Dahl MD [address] [place] [address] PCP - General Family Medicine 04/24/23
--- OUTSIDE RECORDS SUMMARY | 2025-02-08 08:46 | XMS_ITS | Clinical Summary ---
Author Organization [facility] Address [address] [place] [address] Phone Care Team Providers Care Desk Officer Name Role Phone Unavailable Primary Care [...]
--- OUTSIDE RECORDS SUMMARY | 2025-02-08 08:46 | XMS_ITS | Encounter Summary ---
Author Organization [facility] Address [address] [place] [address] Care Team Providers Care Speech And Drama Teacher Name Role Phone Rocio Dahl MD Primary Care Provider [phone] Source Comments In the event this information is protected by the Federal Confidentiality of Alcohol and Drug AbusePatient Records regulations: The Federal rules restrict any use of the information to criminally investigate or prosecute any alcohol or drug abuse patient.[facility] Encounter Details Date Type Department Care Team (Late st Contact Info) Description 03/17/2018 Get Medical Advice [facility] [address] [phone] Andrews Fish MD [address] [place] [address] RE: Visit Follow Up Question [...] on filedocumented in this encounter Care Teams Speech And Drama Teacher Relationship Specialty Start Date End Date Rocio Dahl MD PCP - General 05/05/07 documented as of this encounter
--- OUTSIDE RECORDS SUMMARY | 2025-02-08 08:46 | XMS_ITS | Clinical Summary ---
Author Organization [facility] [facility] Address [id number] [address] [place] [address] Care Team Providers Care Director Commercial Sales Name Role Phone Rocio Dahl MD Primary Care Provider [phone] Allergies Active Allergy Reactions Criticality Noted Date Comments Latex 04/15/2018 Added based on information entered during case entry, please review and add reactions, type, and severity as needed Medications pravastatin (PRAVACHOL) 40 mg tablet Take 40 mg by mouth daily. Active levothyroxine (SYNTHROID, LEVOTHROID) 50 MCG tablet Take 50 mcg by mouth daily. Active topiramate (TOPAMAX) 50 mg tablet Take 50 mg by mouth daily. Active citalopram (CeleXA) 20 mg tablet Take 20 mg by mouth daily. Active pilocarpine (SALAGEN, PILOCARPINE,) 5 mg tablet Take 5 mg by mouth 3 (three) times a day. Active esomeprazole (NexIUM) 40 mg capsule Take 40 mg by mouth 2 (two) times a day. Active TRIAMTERENE ORAL Take by mouth. Active triamterene-hyd roCHLOROthiazid e (DYAZIDE) 37.5-25 mg per capsule Take 1 capsule by mouth every morning. Active ALPRAZolam XR (XANAX XR) 0.5 mg 24 hr tablet Take 0.5 mg by mouth nightly. Active raloxifene (EVISTA) 60 mg tablet Take 60 mg by mouth daily. Active calcium carbonate (OS-ASHLY) 600 mg (1,500 mg) tablet Take 600 mg by mouth 2 (two) times a day with meals. Active calcium carbonate/vitam in D3 (CALCIUM 600 + D,3, ORAL) Take 1 tablet by mouth 2 (two) times a day. Active cholecalciferol , vitamin D3, 2,000 units tablet Take 2,000 Units by mouth daily. Active aspirin 81 mg Take 81 mg by mouth daily. Active fexofenadine-ps eudoephedrine (MELANIA-D) 60-120 mg per 12 hr tablet Take 1 tablet by mouth 2 (two) times a day. Active docusate sodium (COLACE) 100 mg capsule Take 100 mg by mouth 2 (two) times a day as needed. Active naproxen sodium (ALEVE) 220 mg capsule Take 220 mg by mouth daily. Active loratadine 10 mg capsule Take by mouth. Active Family History Medical History Relation Name Comments Bleeding Disorder Mother Anesthesia problems Neg Hx Relation Name Status Comments Mother Social History Tobacco Use Types Packs/Day Years Used Date Smoking Tobacco: Never Smokeless Tobacco: Never Alcohol Use Standard Drinks/Week Comments No 0 (1 standard drink = 0.6 oz pur e alcohol) AUDIT-C Answer Date Recorded Frequency of Alcohol Consumption Never 04/16/2018 Average Number of Drinks Not on file 018 Frequency of Binge Drinking Not on file 03/31 Childcare Answer Date Recorded Childcare Unknown 12/08/2018 Employment Answer Date Recorded Employment Unknown 12/08/2018 Purpose - Life Answer Date Recorded Purpose and direction in life Unknown Comments No Sex and Gender Information Value Date Recorded Sex Assigned at Not on file Legal Sex Female 2:40 PM EDT Gender Identity Not on file Sexual Orientation Not on file Last Filed Vital Signs Vital Sign Reading Time Taken Comments Blood Pressure 122/71 04/28/2018 1:11 PM EDT Pulse 55 04/28/2018 1:11 PM EDT Temperature 36.2 C (97.2 F) 04/28/2018 1:11 PM EDT Respiratory Rate 11 04/28/2018 1:11 PM EDT Oxygen Saturation 98% 04/28/2018 1:11 PM EDT Inhaled Oxygen Concentration - - Weight 102.1 kg (225 lb) 04/28/2018 10:44 AM EDT Height 165.1 cm (5' 5 ) 04/28/2018 10:44 AM EDT Body Mass Index 37.44 04/28/2018 10:44 AM EDT Plan of Treatment Not on file Medical Devices Not on file Insurance MEDICARE COMMERCIAL Care Teams Director Commercial Sales Relationship Specialty Start Date End Date Rocio Dahl MD [address] [place] [id number] PCP - General Family Medicine 04/19/18
--- OUTSIDE RECORDS SUMMARY | 2025-02-08 08:46 | XMS_ITS | Clinical Summary ---
Author Organization [facility] Address [address] [place] [address] Care Team Providers Care Manager Msw Name Role Phone Rocio Dahl MD Primary Care Provider [phone] Allergies Active Allergy Reactions Criticality Noted Date [...] take two tablet daily 0 7 Active lansoprazole(WA EVACID 15 MG CAP) take one tablet [...] N ot on file 06/06/2020 Data from: https://www.neighborhoodatlas.medicine.[facility].edu/. Last address used for calculation Not [...] 07/2010 Insurance MEDICARE [employer] Care Teams Manager Msw Relationship Specialty Start Date End Date Rocio Dahl MD PCP - General 05/05/07
--- OUTSIDE RECORDS SUMMARY | 2025-02-08 08:46 | XMS_ITS | Encounter Summary ---
Author Organization [facility] Address [address] [facility] [place] [address] Care Team Providers Care Package Reinspector Name Role Phone Rocio Dahl MD Primary Care Provider [phone] Encounter Details Date Type Department Care Team (Late st Contact Info) Description 02/03/2023 Abstract [facility] [place] [facility] [address] [facility] [place] [address] [place] [id number] Sania Dietz NP [address] [place] [address] Social History Tobacco Use Types Packs/Day Years [...] on filedocumented in this encounter Care Teams Package Reinspector Relationship Specialty Start Date End Date Rocio Dahl MD [address] [place] [address] PCP - General Family Medicine 08/17/24 documented as of this encounter
--- OUTSIDE RECORDS SUMMARY | 2025-02-08 08:46 | XMS_ITS | Encounter Summary ---
Author Organization [facility] Address [address] [place] [address] Care Team Providers Care Striper Spray Gun Name Role Phone Rocio Dahl MD Primary Care Provider [phone] Reason for Referral * Evaluate and Treat (Routine) - Closed Specialty Diagnoses / Procedures Referred By Contac t Referred To Contact Otolaryngology Diagnoses Acute suppurative otitis media of left ear without spontaneous rupture of tympanic membrane, recurrence not specified Pastora Flores, SUPPORT SERVICES TECH [address] [place] [address] Phone: tel: fax: Grayson Hutchinson Jr., [address] [place] [address] Phone: tel: fax:[phone] Referral ID Status Reason Start Date Expiration Date V isits Requested Visits Authorized [id number] Closed Specialty Services Required/[facility] 04/24/2023 04/23/2024 1 1 Encounter Details Date Type Department Care Team (Latest Contact Info) Description 04/24/2023 Transcribe Orders [facility] [address] [place] [address] Grayson Hutchinson Jr., DO [address] [place] [address] (Fax) Acute suppurative otitis media of left ear [...] Primary documented in this encounter Care Teams Striper Spray Gun Relationship Specialty Start Date End Date Rocio Dahl MD [address] [place] [address] PCP - General Family Medicine 04/24/23 documented as of this encounter
--- OUTSIDE RECORDS SUMMARY | 2025-02-08 08:46 | XMS_ITS | Clinical Summary ---
Author Organization [facility] Address [address] [place] [address] Care Team Providers Care Senior Erp Consultant Name Role Phone Rocio Dahl MD Primary Care Provider [phone] Allergies Active Allergy Reactions Criticality Noted Date [...] complete this topic Insurance MEDICARE Care Teams Senior Erp Consultant Relationship Specialty Start Date End Date Rocio Dahl MD Sage BORGES PCP - General 03/22/23
--- OUTSIDE RECORDS SUMMARY | 2025-02-08 08:47 | XMS_ITS | Patient Health Record ---
Author Organization [facility] Address [address] [place] [address] Care Team Providers Care Digital Watch Assembler Name Role Phone Rocio Dahl Primary Care Provider Bello Sahu Unavailable [phone] Eliza Salas Unavailable [phone] Allergies Allergen (clinical drug ingredient) Drug/Non Drug Allergy documented on EMR Reaction Allergy Type Onset Date Status sulfamethoxazole / trimethoprim Bactrim Unknown Drug Allergy Active morphine morphine Unknown Drug Allergy Active Results Component Value Reference Range Notes Pneumatic Walking Boot OTS Reviewed date:07/16/2024 03:25:04 PM Interpretation: Performing Lab: Notes/Report: Reason For Referral No Information Medications Medication SIG (Take, Route, Fr equency, Duration) Notes Start Date End Date Status estradiol Active Claritin Active topiramate Active dilTIAZem Active Vitamin D3 Active docusate Active apixaban Active fluticasone Active levothyroxine Active pregabalin Active Metamucil Active pilocarpine Active magnesium citrate Ac tive pravastatin Active citalopram Active ondansetron Active aspirin Active pantoprazole Active calcium citrate Acti ve Social History Tobacco Use: Social History Observation Description Date Details (start date - stop date) Never Smoker NA - NA Tobacco Control (Standard) Question Answer Notes Tobacco use: Nonsmoker Problems Problem Type SNOMED Code ICD Code Onset Dates Problem Status W/U Status Risk Notes Problem [id number] Primary osteoarthritis of right ankle (M19.071) Active confirmed Encounters Encounter Location Date Provider Diagnosis [facility] [address] [place] [address] 07/15/2024 Eliza Salas Primary osteoarthrit is of right ankle M19.071 and Peroneal tendinitis, right leg M76.71 [facility] [address] [facility] [address] [address] 08/05/2024 Eliza Salas Primary osteoarthrit is of right ankle M19.071 Assessments Encounter Date Diagnosis (ICD Code) Assessment Notes Treatment Notes Treatment Clinical Notes Section Notes 07/15/2024 Peroneal tendinitis, right leg (ICD-10 - M76.71) 07/15/2024 Primary osteoarthritis of right ankle (ICD-10 - M19.071) 08/05/2024 Primary osteoarthritis of right ankle (ICD-10 - M19.071) 07/15/2024 Other I have recommended immobilization in a cam boot for the treatment of her peroneal tendinitis. I prescribed a Rollator to help offload weight. She'll continue with icing. We'll follow-up with her in the next few weeks and if still having problems we discussed possible further imaging. Plan has been agreed upon by my supervising physician, Dr. Mis MD. 08/05/2024 Other She is doing really well and will transition to a regular shoe as tolerated. She will call with any concerns and follow up as needed. Plan has been agreed upon by my supervising physician, Dr. Mis MD. Plan Of Treatment No Information Insurance Providers Payer Name Payer Address Payer Phone Subscriber Number Group Number Insured Name Patient Relationship to Insured Coverage Start Date Coverage End Date Medicare [address] [id number] BINA RIOS Self - patient is the insured [facility] Supplemental Insurance [address] [address] [place] [address] [id number] BINA RIOS Self - patient is the insured Medical (General) History Medical History History ICD Code Respiratory problems: Hypothyroidism GI Problems: Depression Kidney trouble Sleep apnea CPAP Machine: Latex Allergy Drug Allergies Surgical History Surgery Date(Month/Year) Right ankle Left hip Mika knee
--- OUTSIDE RECORDS SUMMARY | 2025-02-08 08:47 | XMS_ITS | Encounter Summary ---
Author Organization [facility] Address [address] [place] [address] Care Team Providers Care Oil Expert Name Role Phone Rocio Dahl MD Primary Care Provider [phone] Source Comments In the event this information is protected by the Federal Confidentiality of Alcohol and Drug AbusePatient Records regulations: The Federal rules restrict any use of the information to criminally investigate or prosecute any alcohol or drug abuse patient.[facility] Encounter Details Date Type Department Care Team (Late st Contact Info) Description 03/12/2018 Get Medical Advice [facility] [address] [phone] Andrews Fish MD [address] [place] [address] RE: Visit Follow Up Question [...] on filedocumented in this encounter Care Teams Oil Expert Relationship Specialty Start Date End Date Rocio Dahl MD PCP - General 05/05/07 documented as of this encounter
--- OUTSIDE RECORDS SUMMARY | 2025-02-08 08:47 | XMS_ITS | Encounter Summary ---
Author Organization [facility] Address [address] [place] [address] Care Team Providers Care Dental Assistant Instructor Name Role Phone Rocio Dahl MD Primary Care Provider [phone] Source Comments In the event this information is protected by the Federal Confidentiality of Alcohol and Drug AbusePatient Records regulations: The Federal rules restrict any use of the information to criminally investigate or prosecute any alcohol or drug abuse patient.[facility] Encounter Details Date Type Department Care Team (Late st Contact Info) Description 02/13/2018 Abstract Neurology [address] [place], [place] [phone] (Historical), Unknown Social History Tobacco Use Types [...] on filedocumented in this encounter Care Teams Dental Assistant Instructor Relationship Specialty Start Date End Date Rocio Dahl MD PCP - General 05/05/07 documented as of this encounter
--- OUTSIDE RECORDS SUMMARY | 2025-02-08 08:47 | XMS_ITS | Clinical Summary ---
Author Organization [facility] Address [address] [place] [address] Care Team Providers Care Network Contractor Name Role Phone Rocio Dahl MD Primary Care Provider [phone] Allergies Active Allergy Reactions Criticality Noted Date [...] Description 11/26/2024 9:30 AM EDT [facility] [address] [place] [address] Chavez Canales, BAUTISTA Grade 2 ankle sprain (Primary Dx); Ankle instability, right; Right foot drop 11/26/2024 [facility]amboo [facility] [address] [place] [address] Chavez Canales DPM 11/26/2024 Travel from Last [...] Vaccine: 65+ Years Completed 6, 03/31/2011 Insurance [facility] Address: [facility] [id number] [place] [address] MEDICARE Care Teams Network Contractor Relationship Specialty Start Date End Date Rocio Dahl MD [address] [phone] PCP - General Family Medicine 08/17/24
[2025-02-08 09:18] VITALS: BP 147/67; PULSE 71; O2SAT 98
[2025-02-08 09:20] VITALS: BP 151/69; PULSE 71; O2SAT 98
[2025-02-08] MEDS: LIDOCAINE HCL 2% PF 100 MG/5 ML VIAL 4 ML INJ (09:22)
[2025-02-08] MEDS: IOHEXOL 240 MG/ML - 50 ML VIAL 48 MG INJ (09:22)
[2025-02-08] MEDS: 0.9 % SODIUM CHLORIDE 10 ML SYRINGE - SALINE FLUSH 2 ML INJ (09:22)
[2025-02-08] MEDS: METHYLPREDNISOLONE ACETATE 80 MG/ML VIAL INJ (09:22)
[2025-02-08] MEDS: BUPIVACAINE HCL 0.25% PF 25 MG/10 ML VIAL 2 ML INJ (09:22)
--- NOTE | 2025-02-08 09:27 | W.PM.PROCNOT ---
Date of procedure: 02/08/25 Pre-op diagnosis: Pain due to right sciatica Post-op diagnosis: same as pre-op Procedure: Procedure: Right sciatic nerve block Medications: Bupivacaine 0.25% 4cc, depomedrol 40mg The patient was seen and examined in the preoperative holding area.? The site was marked.? Informed consent was obtained and placed on the chart.? The patient was brought to the medical procedures unit and placed in the prone position when a timeout was completed verifying correct patient, procedure, site, positioning, and planned special equipment.? The area overlying the femoral neck of the right side was prepped and draped using aseptic equipment.? A 22-gauge, 6-inch Stimuplex needle was advanced through a skin wheal of 2% lidocaine, emitting 2 mA of current at 2 Hz.? The needle tip was advanced under fluoroscopic visualization until plantarflexion was achieved at which point Omnipaque dye was injected.? This showed adequate spread.? There was no evidence of neurovascular uptake.? The above-mentioned injectate was placed in two 2.5 mL aliquots preceded by negative aspiration without sequelae.? The needle was removed.? The insertion site was covered.? The patient was taken to the postprocedural recovery area where the patient was monitored for the appropriate length of time before being found suitable for discharge in the accompaniment of a responsible adult. Anesthesia: Local Surgeon: Trevon Harris Pathology: none sent Condition: stable Disposition: no change
== END 2025-02-08 09:29 | disposition home or self-care (01) ==
PROVIDERS: PCP Family Medicine; Visit Provider Anesthesiology
DX: M54.31 Sciatica, right side (principal)
CPT/HCPCS: 64445; J0665; J1010; Q9966

== ENCOUNTER 2025-02-18 09:00 | Outpatient (OUT) | payer MEDICARE, SELFPAY ==
--- OUTSIDE RECORDS SUMMARY | 2025-02-18 09:10 | XMS_ITS | CCD ---
Author Organization [facility] Inform ion [facility] Care Team Providers Care Train Announcer Name Role Phone JAMISON OWENS Unavailable Unavailable ANDREWS FISH Unavailable Unavailable LANIE PRINCE Unavailable Unavailable ANDREWS FISH Unavailable Unavailable Roni Dahl Primary Care Provider [phone] Roni Dahl Primary Care Provider [phone] Roni Dahl Primary Care Provider [phone] [...] Provider MD Roni Dahl Primary Care Provider Verhoff MD, Roni L Primary Care Provider MD Roni Dahl Primary Care Provider MD Yanelis Garcia Attending Provider MD Roni Dahl Primary Care Provider MD Yanelis Garcia Attending Provider MD Daniel Hylton Attending Provider Tara Patel Unavailable Roni Dahl MD Primary Care Provider MD Roni Dahl Primary Care Provider MD Yanelis Garcia Attending Provider DILIP Vasquez Emergency Provider MD Mukul Wilson Attending Provider Mukul Wilson Unavailable LANIE PRINCE Referring Unavailable XU MARTINEZ Attending Unavailable XU MARTINEZ Attending Unavailable Roni Dahl MD Primary Care Provider MARY SUE Attending Unavail able RONI DAHL Primary Care Unavailable GRAYSON HUTCHINSON JR. Admitting Unavail able ANDRE ROWE Referring Unavailable RONI DAHL Primary Care Unavailable GRAYSON HUTCHNISON JR. Attending Unavail able MD Roni Dahl Primary Care Provider DILIP Vasquez Emergency Provider MD Mukul Wilson Attending Provider MD Yanelis Garcia Attending Provider MD Obie Hylton Attending Provider [phone] MD Roin Dahl Primary Care Provider DENISHA Sanchez Attending Provider MD Roni Dahl Primary Care Provider MD Obie Hylton Attending Provider [phone] Davion Olivares Referring Unavaila Davion Malloy Attending Unavaila Davion Malloy Admitting Unavaila Davion Malloy Attending Unavaila Roni Whitaker MD Primary Care Provider Obie Hylton MD Attending Provider Roni Dahl MD Primary Care Provider RASHEEDAESPAN, REAGAN Field Referring Unavailable VERHOFF, RONI L Primary Care Unavailable VERHOFF, RONI L Primary Care Unavailable JOHN PAUL MAYFIELD Referring Unavailable VERHOFF, RONI L Primary Care Unavailable YANELIS GUZMAN Attending Unavailable YANELIS GUZMAN Referring Unavailable VIGESAA, REAGAN Field Referring Unavailable VIGESAA, REAGAN Field Attending Unavailable VERHOFF, RONI L Primary Care Unavailable VERHOFF, RONI L Primary Care Unavailable VERHOFF, RONI L Referring Unavailable VERHOFF, RONI L Primary Care Unavailable YANELIS GUZMAN Attending Unavailable YANELIS GUZMAN Referring Unavailable VERHOFF, RONI L Primary Care Unavailable VERHOFF, RONI L Referring Unavailable VIGESAA, REAGAN Field Referring Unavailable VERHOFF, RONI L Primary Care Unavailable VIGESAA, REAGAN S Referring Unavailable VERHOFF, RONI L Primary Care Unavailable LEXY TAPIA Attending Unavailable VERHOFF, RONI L Primary Care Unavailable LEXY TAPIA Attending Unavailable VERHOFF, RONI L Primary Care Unavailable JESSICA FARRAR Attending Unavailable VERHOFF, RONI L Primary Care Unavailable VIGESAA, REAGAN S Referring Unavailable VERHOFF, RONI L Primary Care Unavailable MONSTER MEI Attending Unavailable VERHOFF, RONI L Primary Care Unavailable VERHOFF, RONI L Primary Care Unavailable GLORY PEÑA Referring Unavailable VerRoni pérez MD Primary Care Provider [phone] Obie Hylton MD Attending Provider Laura RIVERA-CNuvia Attending Provider Roni Dahl Primary Care Unavailable Obie Hylton Attending Unavailable Obie Hylton Admitting Unavailable Verhoff, Roni Primary Care Unavailable Warner, Obie Attending Unavailable Hylton, Obie Admitting Unavailable Verhoff, Roni Primary Care Unavailable Hylton, Obie Attending Unavailable Hylton, Obie Admitting Unavailable Verhoff, Roni Primary Care Unavailable Obermeyer Nuvia L Attending Unavailable ObermeyNuvia bustos L Admitting Unavailable LEXY CANALES Attending Unavailabl e LEXY CANALES Attending Unavailabl e LEXY CANALES Attending Unavailabl e JOHN PAUL MAYFIELD Referring [facility] Primary Care Unavailable Roni Dahl MD Primary Care Provider RONI DAHL Primary Care Unavailable GEORGES BARGER Attending Unavailable CHRISTIAN LUCIO Attending Unavailable RONI DAHL Primary Care Unavailable [facility] Primary Care Unavailable GEORGES BARGER TANYA Referring Unavailable GEORGES BARGER Admitting Unavailable Kimberly STEINER, Trevon Ko Attending Unavailable Nabila [facility] Jan STEINER, Andrius Ko Attending Unavailable Nabila STEINER, [facility] Unavailab Jan STEINER, Andrius Riveraytserafin Attending Unavailable Nabila STEINER, [facility] Unavailab Jan STEINER, Andrius Riveraytserafin Attending Unavailable Nabila STEINER, [facility] Unavailab Jan STEINER, Andrius Ko Attending Unavailable Nabila [facility], [facility] Unavailab dixon Harris MD, Andrius Vytserafin Attending Unavailable Nabila STEINER, [facility] Unavailab dixon Harris MD, Andrius Vytautjhonatan Attending Unavailable Nabila STEINER, [facility] Unavailab Jan STEINER, Andrius Ko Attending Unavailable Nbaila STEINER, [facility] Unavailab le Allergies Allergy Classification Reported Allergen(s) Allergy Type Date of Onset Reaction(s) Facility hydroCHLOROthiazide (6 sources) hydroCHLOROthiazide Drug Allergy 2019 Rash [facility] Latex (6 sources) Latex Substance Allergy 2010 Itching [facility] NSAIDs (6 sources) Ibuprofen Drug Allergy 2018 Rash [facility] Opioid Agonists (6 sources) Morphine Drug Allergy 2010 Other (See Comments) [facility] Serotonin Reuptake Inhibitors (SSRIs) (6 sources) Escitalopram Drug Allergy 2014 Itching, Rash [facility] Sulfonamides (antibiotic) (12 sources) Sulfonamides (Antibiotic) Drug Allergy 2007 Other (See Comments), Itching [facility] Sulfur (6 sources) Sulfur Drug Allergy 2019 Itching [facility] Triamterene (6 sources) Triamterene Drug Allergy 2018 Rash [facility] WHEAT DEXTRIN (6 sources) WHEAT DEXTRIN Drug Allergy 2010 [facility] (1 source) escitalopram; Translations: [ESCITALOPRAM OXALATE] Drug Allergy 2007 [facility] Repository (20 sources) morphine; Translations: [MORPHINE] Drug Allergy 2007 Other (See Comments), Vomiting (disorder), GI Intolerance, Other [facility] Repository (8 sources) Sulfonamides (Antibiotic); Translations: [SULFA (SULFONAMIDE ANTIBIOTICS)] Propensity to adverse reactions to drug (disorder) 2007 Hives [facility] Repository (1 source) GLUTEN FLOUR; Translations: [GLUTEN FLOUR] Propensity to adverse reactions to food (disorder) 2017 [facility] Repository (20 sources) Escitalopram; Translations: [ESCITALOPRAM] Drug Allergy 2007 Itching, Rash [facility], [place] (20 sources) Ibuprofen; Translations: [ibuprofen] Drug Allergy 2018 Rash, GI intolerance [facility], [place] (20 sources) Latex; Translations: [LATEX] Propensity to adverse reactions to drug 2010 Itching, Eruption of skin (disorder), Rash, Other (See Comments) [facility] [place] (20 sources) Sulfonamides (Antibiotic) Propensity to adverse reactions to drug 2007 Other (See Comments) [facility] [place] (20 sources) Triamterene; Translations: [triamterene] Drug Allergy 2018 Rash, Eruption of skin (disorder) [facility], [place] Comment on above: dyazide or ibuprofen caused the rash-taken off both because not sure which one caused the problem (20 sources) WHEAT DEXTRIN; Translations: [Wheat] Drug Allergy 2010 Itching [place], [place] (20 sources) hydroCHLOROthiazide; Translations: [HYDROCHLOROTHIAZIDE] Drug Allergy 2018 Rash [place], [place] Comment on above: dyazide or ibuprofen caused the rash-taken off both because not sure which one caused the problem (20 sources) Sulfacetamide Drug Allergy 2018 Itching [place], [place] (20 sources) Sulfur; Translations: [SULFUR] Drug Allergy 2018 Itching [place], [place] (20 sources) Food Propensity to adverse reactions to drug 2021 [facility] (10 sources) Gluten; Translations: [Glutens] Food allergy Upset stomach (finding) [facility] (9 sources) Sulfamethoxazole; Translations: [sulfamethoxazole] Drug Allergy Eruption of skin (disorder) [facility] (17 sources) Sulfamethoxazole / Trimethoprim; Translations: [sulfamethoxazole-tri methoprim] Drug Allergy 2022 Rash, Other (See Comments) [facility] (16 sources) Sulfacetamide / Sulfur Drug Allergy Unknown [employer] Other (20 sources) Sulfonamides (Antibiotic) Propensity to adverse reactions to drug 2007 Other (See Comments), Itching, Hives, [facility] (7 sources) Naproxen; Translations: [naproxen] Drug Allergy Unknown [facility] (19 sources) Wheat gluten extract Drug Allergy 2022 Nausea And Vomiting [facility] [employer] (2 sources) Morphine Drug Allergy Unknown [employer] Other (2 sources) Sulfamethoxazole / Trimethoprim; Translations: [SULFAMETHOXAZOLE-TRI METHOPRIM] Drug Allergy 2022 [facility] Repository (1 source) Wheat bran; Translations: [WHEAT BRAN] Propensity to adverse reactions to drug (disorder) 2010 [facility] Repository (1 source) GLUTEN PROTEIN; Translations: [GLUTEN PROTEIN] Propensity to adverse reactions to drug (disorder) 2017 [facility] Repository (6 sources) Gluten Allergy to substance 2017 GI intolerance, Itching [facility] (6 sources) hydroCHLOROthiazide Drug Allergy 2019 Rash [facility] (6 sources) Latex Propensity to adverse reactions 2010 Itching, Rash [facility] (6 sources) Triamterene Drug Allergy 2018 Rash [facility] (1 source) Escitalopram Drug Allergy 2022 [facility] Repository (1 source) hydroCHLOROthiazide Drug Allergy 2022 [facility] Repository (1 source) Ibuprofen Drug Allergy 2022 [facility] Repository (1 source) Latex Drug allergy (disorder) 2022 [facility] Repository (1 source) Sulfacetamide Drug Allergy 2022 [facility] Rep[facility] (1 source) Sulfur Drug Allergy 2022 [facility] (1 source) Triamterene Drug Allergy 2022 [facility] Repository (2 sources) Wheat preparation Drug Allergy 2010 Itching [facility] (1 source) Sulfonamides (Antibiotic); Translations: [sulfa drugs] Propensity to adverse reactions to drug (disorder) [facility] Repository Medications Current Medications Medication Drug Class(es) [...] EST, Weig... Start Date: 07/28/21 Status: Ordered ALPRAZolam 0.5 mg disintegrating oral tablet (20 sources) Benzodiazepine Start: 11-13-2011 ALPRAZolam (NI RAVAM) 0.5 MG dissolvable tablet Dissolve 1 (one) tablet (0.5 mg total) on top of tongue . 11/13/2011 Active Start: 11-13-2011 End: 08-23-2023 take 1 tablet by mouth at bedtime Alprazolam 0.5 mg tablet Discontinued 0.5 MG PO Bedtime December 29, 2017 12:00am June 03, 2019 11:13am take 1 tablet by karthik th every twelve hours ALPRAZolam 0.5 MG 1 tablet Orally Twice a day Not-Taking amoxicillin 875 mg / clavulanate 125 mg oral tablet (20 sources) Penicillin-class Antibacterial Start: 01-15-2025 take 1 tablet by mouth twice daily amoxicillin-clavulanate (AUGMENTIN) 875-125 mg per tablet Take 1 (one) tablet by mouth 2 (two) times a day . 20 tablet 01/15/2025 Active Start: 01-30-2023 amoxicillin-cl avulanate (Augmentin) 875-125 MG tablet 01/30/2023 Active Start: 01-30-2023 take 1 tablet by karthik th every twelve hours Amoxicillin-Pot Clavulanate 875-125 MG [...] days 20 tablet 0 05/30/2019 06/09/2019 Active apixaban 5 mg oral tablet (13 sources) Factor Xa Inhibitor Start: 11-26-2023 take 1 tablet by mouth twice daily apixaban 5 mg Tab Take 1 (one) tablet (5 mg total) by mouth 2 (two) times a day . 02/03/2024 Active Start: 10-23-2023 take 1 tablet by karthik twice daily apixaban (ELIQUIS) 5 MG TABS [...] (20 sources) Osmotic Laxative, Vitamin C Start: 021 PLENVU 140 g SOLR Aspir-81 (16 sources) Aspir-81 Active aspirin 81 mg delayed release oral tablet (20 sources) Platelet Aggregation Inhibitor, Nonsteroidal Anti-inflammatory Drug Start: 018 take 1 tablet by mouth once daily [...] INTRANASAL Twice daily January 10, 2018 12:00am Azelastine-Fluticasone 137-5 0 mcg/spray [place],Non-Aerosol (2 sources) Start: 01-10-2018 Azelastine-Flu ticasone 137-50 mcg/spray [place],Non-Aerosol Active 1 SPRAY INTRANASAL Twice daily as needed for Nasal Congestion January 10, 2018 12:00am Start: 01-10-2018 Azelastine-Flu ticasone 137-50 mcg/spray [place],Non-Aerosol Active 1 SPRAY INTRANASAL Twice daily as needed for Nasal Congestion January 09, 2018 11:00pm Ffyfbiowab-Wcwusjzglfh-RfZt (16 sources) Azelastine-Fluti casone-NaCl Active azithromycin 250 mg oral tab let (7 sources) Macrolide Antimicrobial Star t: 08-02 25 azithromycin (ZITHROMAX) 250 MG tablet Take 2 tabs (500 mg) on Day 1, and take 1 tab (250 mg) on days 2 through 5. 1 packet 08/21/2024 Active Start: 07-01-2023 End: 07-05-2023 azithromycin (ZITHROMAX Z-PA K) 250 MG tablet [...] packet 0 03/24/2020 03/31/2020 Discontinued (Therapy completed) betamethasone 1 mg/ml topical cream (2 sources) Corticosteroid Start: 01-15-2025 End: 01-15-2026 betamethasone valerate (VALISONE) 0.1 % cream Apply topically daily . 30 g 01/15/2025 01/15/2026 Active Ca Carb-Ca Gluc-Mg Ox-Mg Gluco (Calcium Magnesium) [...] CARBONATES PO Calcium & Magnesium Carbonates Active Active CALCIUM & MAGNES IUM CARBONATES PO Calcium & Magnesium Carbonates Active 0 Active take 1 tablet by mouth twice sarmad ly CALCIUM & MAGNESIUM CARBONATES PO Take 1 tablet by mouth 2 times daily 0 Active Calcium Carb,Gluc-Mag Gluc,Ox (Calcium Magnesium) 500 mg calcium -250 mg Tablet (4 sources) Start: 05-20-2019 take 1 tablet by mouth twice daily Calcium Carb,Gluc-Mag Gluc,Ox (Calcium Magnesium) 500 mg calcium -250 mg Tablet Active 1 TAB PO Twice daily May 20, 2019 12:00am Start: 05-20-2019 take 1 tablet by karthik twice daily Calcium Carb,Gluc-Mag Gluc,Ox (Calcium Magnesium) 500 mg calcium -250 mg Tablet Active 1 TAB PO Twice daily May 20, 2019 1:00am calcium carbonate 1500 mg oral tablet (11 sources) take 1 tablet by mouth twice daily at mealtime calcium carbonate (OS-ASHLY) 600 mg calcium (1,500 mg) tablet Take 1 (one) tablet (600 mg total) by mouth 2 (two) times a day with meals . Active calcium carbonate 1250 mg / cholecalciferol [...] + D) 500 mg(1,250mg) -200 unit Tablet (15 sources) Start: 12-29-2017 Calcium Carbonate-Vitamin D3 (Calcium [...] 2022 1:00am take 1 capsule by mouth once sarmad ly cholecalciferol, vitamin D3, 25 mcg (1,000 unit) capsule Take 1 (one) capsule (1,000 Units total) by mouth daily . Active take 1 capsule by mouth twice da teto Cholecalciferol (VITAMIN D) 2000 units CAPS capsule Take 1 capsule by mouth 2 times daily Active cholecalciferol (Vitamin D-3) 50 MCG (2000 UT) capsule Take 2,000 Units by mouth Active Cholecalciferol 2000 UNIT (16 sources) Cholecalciferol 2000 UNIT Orally Active citalopram 20 mg oral tablet (20 sources) Serotonin Reuptake Inhibitor Start: 04-11-20 15 take 1 tablet by mouth once daily at bedtime citalopram (CELEXA) 20 MG tablet Take 1 (one) tablet (20 mg total) by mouth every night at bedtime . 04/11/2015 Active clotrimazole 10 mg oral lozenge (18 sources) Azole Antifungal Start: 02-06-20 25 End: 02-16-20 25 take 1 tablet by mouth five times daily clotrimazole (MYCELEX) 10 mg anastasia Indications: Sore throat Take1 (one) tablet (10 mg total)by mouth 5 (five) times a day for 10 days.Allow anastasia to dissolve slowly in the mouth. 50 tablet 02/05/2025 02/15/2025 Active Start: 01-15-2025 End: 01-25-2025 take 1 tablet by mouth three times daily clotrimazole (MYCELEX) 10 mg anastasia Take1 (one) tablet (10 mg total)by mouth 3 (three) times a day for 30 doses.Allow anastasia to dissolve slowly in the mouth. 30 Anastasia 01/15/2025 01/25/2025 Active Start: 10-23-2023 End: 11-02-2023 take 1 tablet by mouth four times daily as needed clotrimazole (MYCELEX) 10 MG anastasia Take 1 tablet by mouth 4 times [...] Active Start: 05-07-2023 take 1 tablet by [facility] twice daily diclofenac (VOLTAREN) 50 MG EC tablet Take 1 tablet by mouth 2 times daily 60 tablet 5 05/07/2023 Active 24 hr dilTIAZem hydrochloride 120 mg extended release oral capsule (20 sources) Calcium Channel Natty Start: 12-03-2024 take 1 capsule by mouth once daily dilTIAZem (CARDIZEM CD) 120 MG extended release capsule Indications: Atrial fibrillation, unspecified type (HCC) TAKE 1 CAPSULE BY MOUTH DAILY 90 capsule 3 12/03/2024 Active Start: 08-05-2024 take 1 capsule by mo [facility] once daily dilTIAZem (CARDIZEM CD) 120 MG extended release capsule Indications: Atrial fibrillation, unspecified type (HCC) Take 1 capsule by mouth daily 90 capsule 1 08/05/2024 Active Start: 02-11-2024 take 1 capsule by [facility] once daily dilTIAZem (CARDIZEM CD) 120 MG extended release capsule Indications: Atrial fibrillation, unspecified type (HCC) Take 1 capsule by mouth daily 90 capsule 1 02/11/2024 Active Start: 06-27-2022 take 1 tablet by [facility] once daily Diltiazem Hcl 30 mg Tablet Active 30 MG PO Daily June 27, 2022 1:00am Start: 07-29-2017 End: 05-29-2022 Diltiazem Hcl 30 mg Tablet Discontinued 30 MG PO As Directed as needed for Increased Heart Rate January 10, 2018 12:00am May 29, 2022 9:36am docusate sodium 100 mg oral tablet (20 sources) Start: 03-01-2021 take 100 mg by mouth once daily Colace 100 mg, Oral, Daily, Refills(s) 0, Constipation Start Date: 03/01/21 Status: Ordered Start: 05-20-2019 take 1 capsule by [facility] once daily docusate sodium (COLACE) 100 MG capsule Take 1 (one) capsule (100 mg total) by mouth daily . 05/20/2019 Active Docusate Sodium Active doxycycline hyclate 100 mg oral capsule (3 sources) Tetracycline-class Drug Start: 02-05-2025 End: 02-15-2025 take 1 capsule by mouth twice daily doxycycline hyclate (VIBRAMYCIN) 100 MG capsule Indications: Cough, unspecified type , Nasal congestion Take 1 (one) capsule (100 mg total) by mouth 2 (two) times a day for 10 days . 20 capsule 02/05/2025 02/15/2025 Active Start: 11-17-2022 End: 11-25-2022 take 1 tablet [...] 2022 1:00am Start: 12-29-2017 End: 05-29-2022 take 1 capsule by mouth once daily in the morning Esomeprazole Magnesium 40 mg capsule,delayed release(DR/EC) Discontinued 40 MG PO Every morning December 29, 2017 12:00am May 29, 2022 9:36am estradiol 0.1 mg/ml vaginal cream (20 sources) Estrogen Start: 12-22-2024 estradiol (EST RACE VAGINAL) 0.1 MG/GM vaginal cream Indications: Frequent UTI , Vaginal atrophy , Mixed incontinence urge and stress Insert one inch of cream inside the vagina and placed an additional pea sized amount to the urethra and inner labia three nights per week. Do NOT use plastic applicator. 1 each 3 12/22/2024 Active Start: 04-20-2024 estradiol (EST RACE VAGINAL) 0.1 MG/GM vaginal cream Indications: Frequent UTI , Vaginal atrophy , Mixed incontinence urge and stress Place a pea-sized amount vaginally 3 times per week 1 each 3 04/20/2024 Active Start: 12-11-2022 estradioL (EST RACE) 0.01 % (0.1 mg/gram) vaginal cream Insert 1 (one) g into the vagina daily . 12/11/2022 Active Start: 12-11-2022 estradiol (Est race) 0.1 MG/GM vaginal cream Insert 1 g into the vagina 12/11/2022 Active Start: 12-11-2022 estradiol (EST RACE VAGINAL) 0.1 MG/GM vaginal cream Indications: Frequent UTI , Vaginal atrophy , Mixed incontinence urge and stress Place [address] a pea-sized amount vaginally daily x 2 wks, then use 3 times per wk thereafter 1 each 3 12/11/2022 Active ESTRADIOL VA Sonia ce vaginally 0 Active famotidine 40 mg oral tablet (20 sources) Histamine-2 Receptor Antagonist Start: 09-16-2023 take 1 tablet by mouth once daily at bedtime famotidine 40 mg Tab 40 mg = 1 tab(s), Oral, Once a day (at bedtime), # 90 tab(s), Refills(s) 6, Pharmacy: [facility] #[id number], 162, cm, 09/16/23 10:47:00 EDT, Height/Length Dosing, 97.8, kg, 09/16/23 10:47:00 EDT, Weight Dosing Start Date: 09/16/23 Status: Ordered Start: 04-03-2021 End: 01-15-2025 take 1 tablet by mouth once daily famotidine (PEPCID) 20 MG tablet Take 1 (one) tablet (20 mg total) by mouth daily . 10/30/2021 01/15/2025 Discontinued (Patient's Request) fexofenadine hydrochloride 180 mg oral tablet (20 sources) Histamine-1 Receptor Antagonist Start: 01-10-2018 take 1 tablet by mouth once fexofenadine (ASHLEY) 180 MG tablet Take 1 (one) tablet (180 mg total) by mouth once . 01/10/2018 Active 12 hr fexofenadine hydrochloride 60 mg / pseudoephedrine hydrochloride 120 mg extended release oral tablet (3 sources) alpha-Adrenergic Agonist, Histamine-1 Receptor Antagonist take 1 tablet by mouth once in the morning, then take 1 tablet by mouth every twelve hours in the evening fexofenadine-pseud oephedrine ER (Ashley-D) 60-120 MG 12 hr tablet Take 1 tablet by mouth in the morning and 1 tablet in the evening. Active fluconazole 150 mg oral tablet (17 sources) [...] dose nasal spray (20 sources) Corticosteroid Start: 02-11-2024 fluticasone (F LONASE) 50 MCG/ACT nasal spray Indications: Acute pansinusitis, recurrence not specified 1 spray by Nasal route daily 3 each 1 02/11/2024 Active Start: 03-29-2022 End: 10-23-2023 fluticasone (FLONASE) 50 MCG /ACT nasal spray Indications: Acute pansinusitis, recurrence not specified 1 spray by Nasal route daily 3 each 1 02/11/2024 Active Start: 03-29-2022 take 1 spray(s) nasa l route in the morning fluticasone (Flonase) 50 MCG/ACT nasal spray Administer 1 spray into affected nostril(s) in the morning. 03/29/2022 Active Start: 03-01-2021 take 1 spray(s) nasa l route once daily fluticasone propionate (FLONASE) 50 mcg/actuation nasal spray Instill 1 (one) spray into each nostril daily . 03/01/2021 Active Start: 01-03-2021 fluticasone (F LONASE) [...] 0 05/30/2019 Active fluticasone 0.05 mg/inh Nasal [place] (8 sources) Start: 03-01-2021 fluticasone 0.05 mg/inh Nasal [place] 50 mcg, Nasal, Daily, Refill(s) 0, Allergy symptoms Start Date: 03/01/21 Status: Ordered gabapentin 300 mg oral capsule (1 source) Anti-epileptic Agent Start: 05-27-2023 gabapentin (NEURONTIN) 300 MG capsule hydroCHLOROthiazide 25 mg / triamterene 37.5 mg oral capsule (20 sources) Potassium-spar ing Diuretic, Thiazide Diuretic Start: 06-27-2022 take 1 capsule by mouth once daily Triamterene-[place] chlorothiazid 37.5-25 mg Capsule Active 1 CAP PO Daily June 27, 2022 1:00am Start: 12-29-2017 End: 05-20-2019 take 1 tablet by mouth once daily Triamterene-Hydrochlorothiazid 37.5-25 m g tablet Discontinued 1 TAB PO Daily December 29, 2017 12:00am May 20, 2019 1:52pm hydrocortisone 25 mg/ml topical cream (7 sources) Corticosteroid Start: 06-19-2023 hydrocortisone 2.5 % cream Start: 04-18-2022 hydrocortisone 2.5 % cream ketoconazole 20 mg/ml topical cream (2 sources) Azole Antifungal Start: 06-19-2023 ketoconazole (NIZORAL) 2 % cream levothyroxine sodium 0.05 mg oral tablet (20 sources) l-Thyroxine Start: 11-02-2014 levothyroxine (SYNTHROID, LEVOTHROID) 50 MCG tablet TAKE 1 TABLET EVERY DAY FOR HYPOTHYROIDISM 11/02/2014 Active Start: 11-02-2014 take 1 tablet by karthik [...] mg oral capsule (20 sources) Start: 07-17-2021 loratadine 10 mg cap Take by mouth . 07/17/2021 Active Start: 05-20-2019 End: 05-29-2022 take 1 tablet by mouth once daily Loratadine 10 mg Tablet Discontinued 10 MG PO Daily May 20, [...] Ordered Start: 07-17-2021 take 1 capsule by [facility] once daily Metamucil Fibre Therapy capsule, Oral, [...] May 20, 2019 1:00am Multivitamin Act carole Multivitamin Tablet (2 sources) Start: 05-20-2019 take 1 tablet by mouth once daily Multivitamin Tablet Active 1 TAB PO Daily May 20, 2019 1:00am Start: 05-20-2019 take 1 tablet by karthik th once daily Multivitamin Tablet Active 1 TAB PO Daily May 20, 2019 12:00am naproxen sodium 220 mg oral tablet (20 sources) Nonsteroidal Anti-inflammatory Drug Start: 06-27-2022 take 1 tablet by mouth twice daily as needed for pain Naproxen Sodium 220 mg Tablet Active 220 MG PO Twice daily as needed for Pain June 27, 2022 1:00am Start: 01-10-2018 End: 05-20-2019 take 1 capsule by mouth twice daily Naproxen Sodium 220 mg Capsule Discontinued 220 MG PO Twice daily January [...] 20 capsule 0 10/14/2021 10/24/2021 Active nystatin 443774 unt/ml oral suspension (20 sources) Polyene Antifungal Start: 11-25-2024 nystatin (MYCOSTATIN) [id number] UNIT/ML suspension 11/25/2024 Active Start: 10-18-2023 End: 10-28-2023 take 5 mL by mouth four times daily nystatin (MYCOSTATIN) [id number] UNIT/ML suspension Take 5 mLs by mouth 4 times daily for 10 days Swish and swallow 200 mL 0 10/18/2023 10/28/2023 Active Start: 01-30-2023 take 4 mL by mouth f our times daily Nystatin [id number] UNIT/ML 4 ml swish and swallow Mouth/Throat Four times a day for 14 days Jan, Not-Taking Start: 12-20-2022 take 5 mL by mouth f our times daily nystatin (MYCOSTATIN) [id number] UNIT/ML suspension Take 5 mLs by mouth 4 times daily Swish and swallow. 200 mL 0 02/27/2023 Active Start: 11-25-2022 End: 11-25-2022 take 5 mL by mouth four times daily nystatin (MYCOSTATIN) [id number] UNIT/ML suspension Take 5 mLs by mouth 4 times daily Swish and swallow. 200 mL 0 11/25/2022 11/25/2022 Discontinued (DUPLICATE) Start: 08-15-2022 take 5 mL by mouth f our times daily nystatin (MYCOSTATIN) [id number] UNIT/ML suspension take 5 milliliters by mouth four times a day as directed 60 mL 2 08/15/2022 Active Start: 05-29-2022 take 5 mL by mouth f our times daily nystatin (MYCOSTATIN) [id number] UNIT/ML suspension Take 5 mLs by mouth 4 times daily 60 mL 2 05/29/2022 Active Start: 05-29-2022 Nystatin 100,0 00 unit/mL suspension Active 1 UNIT MUCOUS MEM Twice daily May 29, 2022 1:00am Start: 02-08-2022 nystatin (MYCO STATIN) [id number] UNIT/GM cream Apply topically 2 times daily Apply topically 2 times daily. 60 g 0 02/08/2022 Active Start: 02-27-2021 take 5 mL by mouth f our times daily nystatin (MYCOSTATIN) [id number] UNIT/ML suspension Take 5 mLs by mouth 4 times daily 150 mL 0 02/27/2021 Active Nystatin 204867 units/g (4 sources) Nystatin 984708 units/g applied topically as directed four times a day Active ondansetron 4 mg disintegrating oral tablet (12 sources) Serotonin-3 Receptor Antagonist Start: 10-23-19 take 1 tablet by mouth three times daily as needed for nausea ondansetron (ZOFRAN-ODT) 4 MG disintegrating tablet Take 1 tablet by mouth 3 times daily as needed for Nausea or Vomiting 21 tablet 10/23/2023 Active Start: 10-23-2023 End: 10-23-2023 ondansetron [...] tablet (20 sources) Proton Pump Inhibitor Start: 06-04-2022 End: 07-05-2023 pantoprazole (ProtoNix) 20 MG EC tablet Take 20 mg by mouth. 07/10/2022 Active Start: 05-15-2021 [facility] pantoprazole (PROTONIX) 20 MG tablet Take 1 (one) tablet (20 mg total) by mouth daily . 05/15/2021 Active Start: 01-17-2021 pantoprazole ( PROTONIX) 20 MG tablet pilocarpine hydrochloride 5 mg oral tablet (20 sources) Cholinergic Receptor Agonist Start: 12-29-2017 take 1 tablet by mouth three times daily pilocarpine (SALAGEN) 5 MG tablet Take 1 (one) tablet (5 mg total) by mouth 3 (three) times a day . 12/29/2017 Active pravastatin sodium 40 mg oral tablet (20 sources) HMG-CoA Reductase Inhibitor Start: 11-13-2011 pravastatin sodium (PRAVASTATIN ORAL) Take 40 mg by mouth . 11/13/2011 Active Pravastatin 40 m g Active predniSONE 20 mg oral tablet (20 sources) Start: 07-01-2023 predniSONE (DE LTASONE) 20 MG tablet 2 tablets daily x 2 days then 1 tablet 6 tablet 0 07/01/2023 Active Start: 03-01-2023 take 4 tablets by mo [facility] once daily Prednisone 10 mg tablet Active 40 MG PO Daily March 01, 2023 12:00am Start: 03-01-2023 take 40 mg by mouth once daily Prednisone Active 40 MG PO Daily March 01, 2023 12:00am Start: 01-30-2023 predniSONE (De ltasone) 20 MG tablet 01/30/2023 Active Start: 12-29-2017 End: 01-10-2018 take 3 tablets by mouth once daily Prednisone 20 mg tablet Discontinued 60 MG PO Daily December 29, 2017 12:00am January 10, 2018 8:42am Start: 12-29-2017 End: 01-10-2018 take 60 mg by mouth once daily Prednisone Discontinued 60 MG PO Daily December 29, 2017 12:00am January 10, 2018 8:42am psyllium 400 mg oral capsule (7 sources) Start: 05-20-2019 Psyllium Husk (Fiber (Psyllium Husk)) 0.4 gram Capsule Active 1 CAP PO Daily May 20, 2019 1:00am Start: 07-04-2006 psyllium (META MUCIL) 0.52 gram capsule Take by mouth See Admin Instructions . 07/04/2006 Active Psyllium Husk (Fiber (Psylli um Husk)) 0.4 gram Capsule (15 sources) Start: 05-20-2019 Psyllium Husk (Fiber (Psyllium [...] by mouth Take with 8 oz water. Active Psyllium-Calcium (METAMUCIL PLUS CALCIUM) CAPS Take by mouth Take with 8 oz water. 0 Active Psyllium-Calcium (METAMUCIL PLUS CALCIUM) CAPS Take by mouth. Take with 8 oz water. 0 Active raloxifene hydrochloride 60 mg oral tablet (20 sources) Estrogen Agonist/Antagonist Start: 06-27-2022 take 1 tablet by mouth once daily Raloxifene 60 mg Tablet Active 60 MG PO Daily June 27, 2022 1:00am Start: 12-29-2017 End: 05-20-2019 take 1 tablet by mouth once daily Raloxifene 60 mg tablet Discontinued 60 MG PO Daily December 29, 2017 12:00am May 20, 2019 1:52pm tiZANidine 2 mg oral tablet (6 sources) Central alpha-2 Adrenergic Agonist Start: 02-03-2023 take 1 tablet by mouth every eight hours for muscle spasms tiZANidine (Zanaflex) 2 MG tablet Indications: Spasm of muscle of lower back Take 1 tablet (2 mg) by mouth every 8 (eight) hours if needed for muscle spasms for up to 10 days. 30 tablet 02/03/2023 Active topiramate 50 mg oral tablet (20 sources) Start: 07-04-2006 take 1 tablet by mouth once daily topiramate (TOPAMAX) 50 MG tablet Take 1 (one) tablet (50 mg total) by mouth daily . 07/04/2006 Active traMADol hydrochloride 50 mg oral tablet (20 sources) Opioid Agonist Start: 08-12-2024 take 1 tablet by mouth every six hours as needed for pain traMADol (ULTRAM) 50 MG tablet Take 1 tablet by mouth every 6 hours as needed for Pain. 08/12/2024 Active Start: 07-10-2024 End: 07-13-2024 take 1 tablet by mouth every six hours as needed for pain traMADol (ULTRAM) 50 MG tablet Indications: Sprain of right ankle, unspecified ligament, initial encounter Take 1 tablet by mouth every 6 hours as needed for Pain for up to 3 days. Intended supply: 3 days. Take lowest dose possible to manage pain Max Daily Amount: 200 mg 12 tablet 07/10/2024 07/13/2024 Active Start: 06-27-2022 End: 07-03-2022 take 1 tablet by mouth twice daily as needed for pain Tramadol 50 mg Tablet Discontinued 50 MG PO Twice daily as needed for Pain June 27, 2022 1:00am July 03, 2022 10:30am traMADol ER (Ult joe-ER) 100 MG 24 hr tablet Take by mouth Daily as needed Do not crush, chew, or split. Active traZODone hydrochloride 50 mg oral tablet (1 [...] Active vitamin b12 1 mg oral tablet (18 sources) Vitamin B12 take 1 tablet by mouth once daily cyanocobalamin (B-12) 1000 MCG tablet Take 1 (one) tablet (1,000 mcg total) by mouth daily . Active Vitamin D (8 sources) Start: 03-24-2019 Vitamin D 2000 IU, Oral, BID, Ordered by another provider., Refills(s) 0, Prophylaxis Start Date: 03/24/19 Status: Ordered Completed/Discontinued Medications Medication Drug Class(es) Dates Sig (Normalized) Sig (Original) cephalexin 500 mg oral capsule (17 sources) Cephalosporin Antibacterial Start: 06-03-2019 End: 03-27-2022 take 1 capsule by mouth every twelve hours Cephalexin 500 mg capsule Discontinued 500 MG PO Q12H June 03, 2019 1:00am March 27, 2022 8:11am dexamethasone phosphate 10 mg/ml injectable solution (1 source) Corticosteroid Start: 02-08-2023 End: 02-08-2023 dexamethasone (DECADRON) injection 8 mg ketorolac tromethamine 10 mg oral tablet (17 sources) Nonsteroidal Anti-inflammatory Drug, Cyclooxygenase Inhibitor Start: 06-03-2019 End: 05-29-2022 take 1 tablet by mouth every six hours as needed for pain Ketorolac 10 mg tablet Discontinued 10 MG PO Q6H as needed for pain 10 June 03, 2019 1:00am May 29, 2022 9:36am 50 ml magnesium sulfate 40 mg/ml injection (1 source) Start: 11-14-2023 End: 11-14-2023 magnesium sulfate 2000 mg in 50 mL IVPB premix multivitamin with minerals tablet (4 sources) End: 01-15-2025 take 1 tablet by mouth once daily multivitamin with minerals tablet Take 1 (one) tablet by mouth daily . 01/15/2025 Discontinued (Patient's Request) take 1 tablet by mouth once tera y multivitamin with minerals tablet Take 1 (one) tablet by mouth daily . 0 Active potassium chloride 10 meq extended release oral tablet (6 sources) Start: 11-14-2023 End: 11-14-2023 potassium chloride (KLOR-CON ) extended release tablet 40 mEq Start: 11-22-2020 potassium chlo ride (KLOR-CON M) 20 MEQ extended release tablet Take one tablet on Saturday, and Saturday. 3 tablet 0 11/22/2020 Active 50 ml sodium chloride 9 mg/m l injection (2 sources) Start: 10-23-2023 End: 10-23-2023 sodium chloride 0.9 % bolus 1,000 mL Start: 11-18-2020 End: 11-18-2020 0.9 % sodium chloride bolus Problems Active Problems Problem Classification Problem Date Documented Da te Episodic/Chronic Acquired foot deformities (2 sources) Right foot drop; Translations: [Foot drop, right foot] 11-29-2024 Episodic Allergic reactions (3 sources) Inflammatory dermatosis; Translations: [Dermatitis, unspecified] Onset: 5 01-15-2025 Episodic Bacterial infection; unspecified site (2 sources) Other specified bacterial agents as the cause of diseases classified elsewhere; Translations: [Other specified bacterial agents as the cause of diseases classified elsewhere] Onset: 5 Episodic Cardiac dysrhythmias (20 sources) Atrial flutter; Translations: [Atypical atrial flutter] Onset: 4 Resolved: 0 07-11-2017 Chronic Cataract (20 sources) Cortical senile cataract; Translations: [Cortical age-related cataract, unspecified eye] Onset: 5 01-31-2015 Chronic Chronic kidney disease (20 sources) Chronic kidney disease stage 3; Translations: [Chronic renal disease, stage III] Onset: 2 Resolved: 5 10-26-2021 Chronic Deficiency and other anemia (2 sources) Hemoglobin low; Translations: [Anemia, unspecified] Episodic Disorders of lipid metabolism (20 sources) Hyperlipidemia; Translations: [Hyperlipidemia, unspecified] Onset: 1 02-08-2011 Chronic Diverticulosis and diverticulitis (20 sources) Diverticulitis; Translations: [Diverticulitis of intestine, part unspecified, without perforation or abscess without bleeding] Onset: 1 02-08-2011 Chronic Esophageal disorders (20 sources) Gastroesophageal reflux disease; Translations: [Gastro-esophageal reflux disease without esophagitis] Onset: 3 08-21-2012 Chronic Essential hypertension (20 sources) Hypertensive disorder; Translations: [Essential hypertension] Onset: 1 06-08-2011 Chronic Fever of unknown origin (1 source) Fever; Translations: [Fever, unspecified fever cause] Episodic Genitourinary symptoms and ill-defined conditions (20 sources) Urinary incontinence; Translations: [Unspecified urinary incontinence] Onset: 3 Chronic Headache; including migraine (20 sources) Cluster headache; Translations: [Migraine] Onset: 1 Resolved: 7 10-10-2016 Chronic Headache; including migraine (1 source) Acute headache; Translations: [Acute nonintractable headache, unspecified headache type] Episodic Malaise and fatigue (2 sources) Asthenia; Translations: [Weakness] Episodic Menopausal disorders (1 source) Postmenopausal atrophic vaginitis; Translations: [Postmenopausal atrophic vaginitis] Onset: 4 Chronic Miscellaneous mental health disorders (9 sources) Bruxism (teeth grinding); Translations: [Other somatoform disorders] Onset: 3 05-02-2023 Chronic Mood disorders (20 sources) Dysthymia; Translations: [Dysthymic disorder] Onset: 1 04-24-2011 Chronic Mycoses (2 sources) Candidiasis of vagina; Translations: [Candidiasis of vulva and vagina] Episodic Nutritional deficiencies (20 sources) Vitamin D [...] fracture] Onset: 4 Chronic Other acquired deformities (1 source) Scoliosis, unspecified; Translations: [Scoliosis, unspecified] Onset: 8 Chronic Other acquired deformities (2 sources) Other secondary scoliosis, lumbar region; Translations: [Other secondary scoliosis, lumbar region] Onset: 3 Chronic Other and unspecified benign neoplasm (1 source) Polyp of colon; Translations: [Polyp of colon] Onset: 4 Episodic Other DISABILITY PROGRAM NAVIGATOR infection and poliomyelitis (8 sources) H/O: poliomyelitis 07-17-2021 Episodic Other connective tissue disease (2 sources) Pain in right foot; Translations: [Pain in right foot] 08-19-2024 Episodic Other diseases of kidney and ureters (1 source) Cyst of kidney; Translations: [Cyst of kidney, acquired] 03-13-2023 Episodic Other ear and sense organ disorders (8 sources) Hearing loss; Translations: [Unspecified hearing loss, [...] disorders (8 sources) Constipation 07-17-2021 Episodic Other lower respiratory disease (1 source) Cough; Translations: [Cough, unspecified type] 02-05-2025 Episodic Other nervous system disorders (20 sources) [...] Episodic Other non-traumatic joint disorders (2 sources) Arthralgia of the ankle and/or foot; Translations: [Pain in right ankle and joints of right foot] 08-19-2024 Episodic Other non-traumatic joint disorders (4 sources) Instability of joint of right ankle; Translations: [Other instability, right ankle] 08-19-2024 Episodic Other nutritional; endocrine; and metabolic disorders (20 sources) Morbid obesity; Translations: [Morbid (severe) obesity due to excess calories] Onset: 0 01-25-2020 Chronic Other upper respiratory disease (2 sources) Nasal congestion; Translations: [Nasal congestion] Onset: 5 02-05-2025 Episodic Other upper respiratory disease (1 source) Nasal congestion; Translations: [Nasal congestion] Onset: 5 Episodic Other upper respiratory infections (20 sources) Chronic sinusitis; Translations: [Chronic sinusitis, unspecified] Onset: 1 03-31-2015 Chronic Other upper respiratory infections (13 sources) Acute frontal sinusitis; Translations: [Acute pansinusitis] Onset: 4 Episodic Residual codes; unclassified (20 sources) Sleep apnea; Translations: [Sleep apnea, unspecified] Onset: 3 08-21-2012 Chronic Comment on above: USES CPAP Residual codes; unclassified (7 sources) Obstructive sleep apnea syndrome; Translations: [Obstructive sleep apnea (adult) (pediatric)] Onset: 3 05-02-2023 Chronic Residual codes; unclassified (2 sources) Obstructive sleep apnea (adult) (pediatric); Translations: [Obstructive sleep apnea (adult) (pediatric)] Onset: 3 Chronic Residual codes; unclassified (1 source) History of arthroscopic procedure on shoulder; Translations: [Other specified postprocedural states] Episodic Spondylosis; intervertebral disc disorders; other back problems (20 sources) Solitary sacroiliitis; Translations: [Sacroiliitis, not elsewhere classified] Onset: 3 Chronic Spondylosis; intervertebral disc disorders; other back problems (10 sources) Chronic low back pain; Translations: [Lumbago with sciatica, right side] Episodic Sprains and strains (14 sources) Shoulder strain; Translations: [Sprain of right ankle] Onset: 5 07-17-2021 Episodic Thyroid disorders (20 sources) Hypothyroidism; Translations: [Hypothyroidism, unspecified] Onset: 1 02-08-2011 Chronic Unclassified (1 source) Patient encounter status; Translations: [Visit for screening mammogram] Unclassified (8 sources) Asymptomatic microscopic hematuria 06-28-2020 Unclassified (8 sources) Drug therapy finding 06-30-2019 Unclassified (1 source) Cough, unspecified; Translations: [Cough, unspecified] Onset: 5 Urinary tract infections (1 source) Acute cystitis; Translations: [Acute cystitis with hematuria] Episodic Viral infection (3 sources) Viral disease; Translations: [Disease caused by 2019-nCoV] 07-01-2023 Episodic Viral infection (1 source) COVID-19; Translations: [COVID-19] Onset: 4 Past or Other Problems Problem Classification Problem Date Documented Da te Episodic/Chronic Abdominal hernia (20 sources) Diaphragmatic hernia; Translations: [Diaphragmatic hernia without obstruction or gangrene] Onset: 1 03-31-2015 Episodic Abdominal pain (20 sources) Epigastric pain; Translations: [Epigastric pain] Onset: 2 Resolved: 7 07-16-2016 Episodic Cancer; other and unspecified primary (20 sources) H/O: neoplasm; Translations: [Personal history of other diseases of the digestive system] Onset: 1 08-08-2020 Episodic Cardiac dysrhythmias (20 sources) Palpitations; Translations: [Tachycardia] Onset: 1 Resolved: 7 04-24-2011 Episodic Cardiac dysrhythmias (6 sources) Atypical atrial flutter; Translations: [Atypical atrial flutter] Resolved: 0 01-25-2020 Diseases of mouth; excluding dental (20 sources) Glossodynia; Translations: [Glossodynia] Onset: 2 Resolved: 6 12-29-2015 Episodic Disorders of teeth and jaw (13 sources) Temporomandibular joint disorder; Translations: [Unspecified temporomandibular joint disorder, unspecified side] Onset: 5 10-16-2014 Episodic Fluid and electrolyte disorders (1 source) Hypokalemia; Translations: [Hypokalemia] Onset: 4 Episodic Gastritis and duodenitis (20 sources) Gastritis; Translations: [Gastritis, unspecified, without bleeding] Onset: 2 Resolved: 7 10-10-2016 Episodic Genitourinary symptoms and ill-defined conditions (20 sources) Increased frequency of urination; Translations: [Nocturia] Onset: 3 07-17-2021 Episodic Hemorrhoids (13 sources) Internal hemorrhoids; Translations: [Other hemorrhoids] Onset: 5 03-01-2021 Episodic Immunizations and screening for infectious disease (1 source) Contact with and (suspected) exposure to other viral communicable diseases; Translations: [Exposure to COVID-19 virus] Episodic Nausea and vomiting (4 sources) Nausea, vomiting and diarrhea; Translations: [Nausea with vomiting, unspecified] Onset: 4 Episodic Other and unspecified benign neoplasm (10 sources) Benign neoplasm of stomach; Translations: [Benign neoplasm of stomach] Onset: 1 04-24-2011 Episodic Other and unspecified benign neoplasm (20 sources) Tubular adenoma of colon; Translations: [Benign neoplasm of colon, unspecified] Onset: 1 03-03-2021 Episodic Other and unspecified benign neoplasm (16 sources) History of polyp of colon; Translations: [Personal history of colonic polyps] Onset: 3 07-17-2021 Episodic Other connective tissue disease (13 sources) H/O: arthritis; Translations: [Personal history of other diseases of the musculoskeletal system and connective tissue] Onset: 5 04-22-2012 Episodic Other disorders of stomach and duodenum (15 sources) Intestinal metaplasia of gastric mucosa; Translations: [Gastric intestinal metaplasia, unspecified] Onset: 3 Episodic Other gastrointestinal disorders (20 sources) Dysphagia; Translations: [Dysphagia, unspecified] Onset: 2 Resolved: 7 07-16-2016 Episodic Other gastrointestinal disorders (1 source) Diarrhea, unspecified; Translations: [Diarrhea, unspecified] Onset: 4 Episodic Other nutritional; endocrine; and metabolic disorders (2 sources) Other symptoms and signs concerning food and fluid intake; Translations: [Other symptoms concerning nutrition, metabolism, and development] Onset: 4 10-23-2023 Episodic Other screening for suspected conditions (not mental disorders or infectious disease) (12 sources) Patient encounter status; Translations: [Encounter for screening mammogram for malignant neoplasm of breast] Onset: 4 Episodic Other skin disorders (20 sources) Disorder of connective tissue; 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, unspecified] Onset: 1 Resolved: 1 07-28-2020 Chronic Other skin disorders (20 sources) Mass of neck; Translations: [Localized swelling, mass and lump, neck] Onset: 4 Resolved: 8 07-11-2017 Episodic Otitis media and related conditions (14 sources) Acute transudative otitis media; Translations: [Fluid level behind tympanic membrane] Onset: 3 Episodic Residual codes; unclassified (14 sources) Chronic back pain ; Translations: [Dorsalgia, unspecified] Onset: 3 09-11-2013 Episodic Unclassified (16 sources) Other low back pain; Translations: [Other low back pain] Unclassified (3 sources) Other low back pain M54.59 Unclassified (11 sources) Onset: 3 Resolved: 5 05-06-2023 Unclassified (1 source) Cough, unspecified; Translations: [Cough, unspecified] Onset: 5 Results Test Name Value Interpretation Reference Range Facility XR CHEST AP/PA AND LATon XR CHEST AP/PA AND LAT EXAMINATION: XR CHEST AP/PA AND LAT HISTORY: [...] no acute cardiopulmonary process. Workstation ID: [id number] Dictated by: МАРИЯ STOKES on SatFeb 05, 2025 10:31:28 AM EDT Transcribed by: МАРИЯ STOKES on SatFeb 05, 2025 10:31:28 AM EDT Finalized by: МАРИЯ STOKES on SatFeb 05, 2025 10:31:28 AM EDT [facility] Comment on above: Order Comment: Injur y/Trauma or Illness?:Illness/Other How long have you had these symptoms (acute/chronic)?:Acute Reason for exam?:cough History of cancer?:u Surgeries, chemotherapy, or radiation?:u Type of Exam?:Initial Additional signs and symptoms?:congestion x 1 month XR Chest PA and Lateral and AP lateral-decubituson 02-05-2025 There is no acute cardiopulmonary process. Workstation ID: [id number] [facility] EXAMINATION: XR CHEST AP/PA AND LAT HISTORY: [...] the right upper abdomen suggesting a cholecystectomy. [facility] Мария Stokes MD - 02/05/2025 EXAMINATION: XR CHEST AP/PA [...] no acute cardiopulmonary process. Workstation ID: [id number] [facility] Radiology Study observation (narrative) [facility] XR Chest PA and Lateral and AP lateral-decubitusOrdered By: Мария Stokes on 02-05-2025 [facility] Work Phone: Urinalysis w/ Microon 2024 Bilirubin, SemiQt,Ur Negative Normal NEG [facility] Comment on above: Performed By: #### U AMIC #### [facility] [address] [place] [address] [place] [address] Master Fire Control Technician: Christian Muir MD Blood, Urine Negative Normal NEG [facility] Comment on above: Performed By: #### U AMIC #### [facility] [address] [place] [address] Master Fire Control Technician: Christian Muir MD Clarity (U) Clear Normal CLEAR [facility] Comment on above: Performed By: #### U AMIC #### [facility] [address] [place] [address] Master Fire Control Technician: Christian Muir MD Color (U) Yellow Normal YEL [facility] Comment on above: Performed By: #### U AMIC #### [facility] [address] [place], [place] [id number] Master Fire Control Technician: Christian Muir MD Epithelial cells LM Ql (Urine sed) 2 TO 5 Normal 0-25 [facility] Comment on above: Performed By: #### U AMIC #### [facility] [address] [place], [place] [id number] Master Fire Control Technician: Christian Muir MD Glucose Ql (U) Negative Normal NEG [facility] in Hospital Comment on above: Performed By: #### U AMIC #### [address] [place], [place] [id number] Master Fire Control Technician: Christian Muir MD Ketones Ql (U) Negative Normal NEG [facility] in Hospital Comment on above: Performed By: #### U AMIC #### [facility] [address] [place], [place] [address] Master Fire Control Technician: Christian Muir MD Leukocyte esterase Test strip Ql (U) Negative Normal NEG [facility] Comment on above: Performed By: #### U AMIC #### [address] [place], [place] [id number] Master Fire Control Technician: Christian Muir MD Nitrite,Ur Negative Normal NEG [facility] Comment on above: Performed By: #### U AMIC #### [facility] [address] [place], [place] [id number] Master Fire Control Technician: Christian Muir MD PH,Ur 6.0 Normal 5.0-9.0 [facility] Comment on above: Performed By: #### U AMIC #### [facility] [address] [place] [address] Master Fire Control Technician: Christian Muir MD Protein Ql (U) Negative Normal NEG [facility] in Hospital Comment on above: Performed By: #### U AMIC #### [facility] [address] [place], [place] [id number] Master Fire Control Technician: Christian Muir MD Spec. Milner,Ur 1.020 Normal 1.010-1.02 0 [facility] Comment on above: Performed By: #### U AMIC #### [facility] [address] [place], [place] [id number] Master Fire Control Technician: Christian Muir MD Urine RBC's 0 TO 2 Normal 0-2 [facility] Comment on above: Performed By: #### U AMIC #### [facility] [address] [place] [id number] Master Fire Control Technician: Christian Muir MD Urine WBC's 0 TO 2 Normal 0-5 [facility] Comment on above: Performed By: #### U AMIC #### [facility] [address] [place] [id number] Master Fire Control Technician: Christian Muir MD Urobilinogen,Ur Normal Normal 0.0-1.0 [facility] Comment on above: Performed By: #### U AMIC #### [facility] [address] [place] [id number] Master Fire Control Technician: Christian Muir MD Urinalysis with Microscopico n 12-22-2024 Bilirubin Ql (U) Negative NEGATIVE [facility] Clarity (U) Clear Clear [facility] Color (U) Yellow Yellow [facility] Epithelial cells LM.HPF (Urine sed) [#/Area] 2 TO 5 [facility] Glucose Test strip (U) [Mass/Vol] Negative NEGATIVE mg/dL [facility] Hemoglobin Auto test strip Ql (U) Negative NEGATIVE [facility] Ketones (U) [Mass/Vol] Negative NEGATIVE mg/dL [facility] Leukocyte esterase Test strip Ql (U) Negative NEGATIVE Bon [facility] Nitrite Ql (U) Negative NEGATIVE [facility] pH (U) 6 [pH] 5.0 - 9.0 [facility] Protein (U) [Mass/Vol] Negative NEGATIVE mg/dL [facility] RBC LM.HPF (Urine sed) [#/Area] 0 TO 2 [facility] Specific gravity (U) [Rel density] 1.02 1.010 - 1.020 [facility] Urobilinogen Qn (U) Normal 0.0 - 1. 0 EU/dL [facility] WBC LM.HPF (Urine sed) [#/Area] 0 TO 2 [facility] Appearance of UrineOrdered B y: Nuvia Sanchez on 09-10-2024 Appearance (U) Urine appearance Clear [facility] Bacteria [Presence] in Urine by AutomatedOrdered By: Nuvia Sanchez on 09-10-2024 Bacteria Auto Ql (U) Bacteria [Presence] in Urine by Automated None Seen [facility] Bilirubin Test strip Ql (U)O rdered By: Nuvia Sanchez on 09-10-2024 Bilirubin Ql (U) Bilirubin.total [Pre sence] in Urine by Test strip Negative [facility] Color Auto (U)Ordered By: Rajani Patel on 09-10-2024 Color (U) Color of Urine by Auto Yellow Fi relaFormerly [facility] Dipstick and Microscopicon 0 09-10-2024 Appearance (U) Clear Normal Clear [facility] Comment on above: Order Comment: Name Collection Type:: Clean-Voided Midstream Performed By: #### A DDONUAPLUS #### [facility] [address] [place] [address] [place] Bacteria,Urine Rare Normal None Seen [facility] Comment on above: Order Comment: Name Collection Type:: Clean-Voided Midstream Performed By: #### A DDONUAPLUS #### [facility] [address] [place] [id number] [place] Bilirubin,Urine Negative Normal Negative [facility] Comment on above: Order Comment: Name Collection Type:: Clean-Voided Midstream Performed By: #### A DDONUAPLUS #### [facility] [address] [place] [id number] [place] Color (U) Yellow Normal Yellow [facility] Comment on above: Order Comment: Name Collection Type:: Clean-Voided Midstream Performed By: #### A DDONUAPLUS #### [address] Glucose Ql (U) Normal Normal Normal [facility] Comment on above: Order Comment: Name Collection Type:: Clean-Voided Midstream Performed By: #### A DDONUAPLUS #### [place] [address] [place] Hyaline Casts,Urine None Normal 0-8 [facility] Comment on above: Order Comment: Name Collection Type:: Clean-Voided Midstream Performed By: #### A DDONUAPLUS #### [address] Ketones Ql (U) Negative Normal Negative [facility] Comment on above: Order Comment: Name Collection Type:: Clean-Voided Midstream Performed By: #### A DDONUAPLUS #### [address] Leukocyte esterase Test strip Ql (U) Negative Normal Negative [facility] Comment on above: Order Comment: Name Collection Type:: Clean-Voided Midstream Performed By: #### A DDONUAPLUS #### [place] [address] [place] Mucus,Urine Rare Normal [facility] Comment on above: Order Comment: Name Collection Type:: Clean-Voided Midstream Result Comment: PERF ORMED BY: [place] [address] PATHOLOGIST NIGHT WORKER DOMINICK MONTIEL M.D. Performed By: #### A DDONUAPLUS #### [place] [address] [place] Nitrite,Urine Negative Normal Negative [facility] Comment on above: Order Comment: Name Collection Type:: Clean-Voided Midstream Performed By: #### A DDONUAPLUS #### [place] [address] [place] Occult Blood,Urine Negative Normal Negative [facility] Comment on above: Order Comment: Name Collection Type:: Clean-Voided Midstream Performed By: #### A DDONUAPLUS #### [address] pH (U) 5.0 [pH] Normal 5.0-9.0 [facility] Comment on above: Order Comment: Name Collection Type:: Clean-Voided Midstream Performed By: #### A DDONUAPLUS #### [place] [address] [place] Protein,Urine Negative Normal Negative [facility] Comment on above: Order Comment: Name Collection Type:: Clean-Voided Midstream Performed By: #### A DDONUAPLUS #### [address] RBC,Urine 3-4 Normal 0-4 [facility] Comment on above: Order Comment: Name Collection Type:: Clean-Voided Midstream Performed By: #### A DDONUAPLUS #### [address] Specificy Milner,Urine 1.018 Normal 1.001-1.03 0 [facility] Comment on above: Order Comment: Name Collection Type:: Clean-Voided Midstream Performed By: #### A DDONUAPLUS #### [place] [address] [place] Squamous Epithelial Cell,Urine 1-2 Normal 0-2 [facility] Comment on above: Order Comment: Name Collection Type:: Clean-Voided Midstream Performed By: #### A DDONUAPLUS #### [place] [address] [place] Uric Acid Crystals,Urine 1+ Normal [facility] Comment on above: Order Comment: Name Collection Type:: Clean-Voided Midstream Performed By: #### A DDONUAPLUS #### [place] [address] [place] Urobilinogen,Urine Normal Normal Normal [facility] Comment on above: Order Comment: Name Collection Type:: Clean-Voided Midstream Performed By: #### A DDONUAPLUS #### [facility] [address] [place] [address] [place] WBC,Urine 1-2 Normal 0-4 [facility] Comment on above: Order Comment: Name Collection Type:: Clean-Voided Midstream Performed By: #### A DDONUAPLUS #### [facility] [address] Epithelial cells.squamous [# /area] in Urine sediment by Automated countOrdered By: Nuvia Sanchez on 09-10-2024 Epithelial cells.squamous Auto (Urine sed) [#/Area] Epithelial cells.squamous [#/area] in Urine sediment by Automated count 0-2 [facility] Erythrocytes [#/area] in Uri ne sediment by Automated countOrdered By: Nuvia Sanchez on 09-10-2024 RBC Auto (Urine sed) [#/Area] Erythrocytes [#/area] in Urine sediment by Automated count 0-4 [facility] Glucose [Mass/volume] in Uri ne by Test stripOrdered By: Nuvia Sanchez on 09-10-2024 Glucose Test strip (U) [Mass/Vol] Glucose [Mass/volume] in Urine by Test strip Normal [facility] Hemoglobin Test strip Ql (U) Ordered By: Nuvia Sanchez on 09-10-2024 Hemoglobin Ql (U) Hemoglobin [Presence ] in Urine by Test strip Negative [facility] Hyaline casts [#/area] in Ur ine sediment by Automated countOrdered By: Nuvia Sanchez on 09-10-2024 Hyaline casts Auto (Urine sed) [#/Area] Hyaline casts [#/area] in Urine sediment by Automated count 0-8 [facility] Ketones Test strip Ql (U)Ord ered By: Nuvia Sanchez on 09-10-2024 Ketones Ql (U) Ketones [Presence] i n Urine by Test strip Negative [facility] Leukocyte esterase [Presence ] in Urine by Test stripOrdered By: Nuvia Sanchez on 09-10-2024 Leukocyte esterase Test strip Ql (U) Leukocyte esterase [Presence] in Urine by Test strip Negative [facility] Leukocytes [#/area] in Urine sediment by Automated countOrdered By: Nuvia Sanchez on 09-10-2024 WBC Auto (Urine sed) [#/Area] Leukocytes [#/area] in Urine sediment by Automated count 0-4 [facility] Mucus [Presence] in Urine by AutomatedOrdered By: Nuvia Sanchez on 09-10-2024 Mucus Auto Ql (U) Mucus [Presence] in Urine by Automated [facility] Nitrite Test strip Ql (U)Ord ered By: Nuvia Sanchez on 09-10-2024 Nitrite Ql (U) Nitrite [Presence] i n Urine by Test strip Negative [facility] Protein Test strip (U) [Mass /Vol]Ordered By: Nuvia Sanchez on 09-10-2024 Protein (U) [Mass/Vol] Protein [Mass/volume] in Urine by Test strip Negative [facility] Specific gravity Test strip (U) [Rel density]Ordered By: Nuvia Sanchez on 09-10-2024 Specific gravity (U) [Rel density] Specific gravity of Urine by Test strip 1.001-1.03 0 [facility] Urate crystals [Presence] in Urine sediment by Computer assisted methodOrdered By: Nuvia Sanchez on 09-10-2024 Urate crystals [Presence] in Urine sediment by Computer assisted method Urate crystals [Presence] in Urine sediment by Computer assisted method [facility] Urobilinogen Test strip (U) [Mass/Vol]Ordered By: Nuvia Sanchez on 09-10-2024 Urobilinogen (U) [Mass/Vol] Urobilinogen [Mass/volume] in Urine by Test strip Normal [facility] pH Test strip (U)Ordered By: Nuvia Sanchez on 09-10-2024 pH (U) pH of Urine by Test strip 5.0-9.0 [facility] XR CHEST (2 VW)on 08-30-2024 XR CHEST (2 VW) EXAM: XR CHEST (2 VW ) HISTORY: Essential hypertension COMPARISON: 08/20/2023 TECHNIQUE: 2 views FINDINGS: The heart and mediastinum are unremarkable. Lungs are clear. No focal infiltrates are seen. No effusions are noted. IMPRESSION: No acute cardiopulmonary pathology. Interpreted by: Ora Macias MD Signed by: Ora Macias MD 08/30/24 Final result Normal [facility] Cult,Urineon 08-29-2024 Cult,Urine Specimen Description .CLEAN CATCH URINE Special Requests Site: Urine Culture ESCHERICHIA COLI >100,000 CFU/ML Report Status FINAL 08/29/2024 SUSCEPTIBILITY Organism ESCHERICHIA COLI Method GRACE Ampicillin [...] SUSCEPTIBLE Trimethoprim/Sulfa <=20 SUSCEPTIBLE Susceptible [facility] Comment on above: Performed By: #### F ROYAL #### [facility] [address] [place] [address] Master Fire Control Technician: Christian Muir MD CBC with Auto Differentialon 08-28-2024 Basophils (Bld) [#/Vol] 0.01 10*3/uL [facility] Basophils/100 WBC (Bld) 0 % 0 - 2 % [facility] Eosinophils (Bld) [#/Vol] 0.09 10*3/uL [facility] Eosinophils/100 WBC (Bld) 2 % 0 - 5 % [facility] Erythrocyte distribution width (RBC) [Ratio] 13.8 % 12.1 - 15.2 % [facility] Hematocrit (Bld) [Volume fraction] 37.7 % 36.0 - 46.0 % [facility] Hemoglobin (Bld) [Mass/Vol] 12.4 g/dL 12.0 - 16.0 g/dL [facility] Immature granulocytes (Bld) [#/Vol] 0.06 10*3/uL [facility] Immature granulocytes/100 WBC (Bld) 1 % 0 - 5 % [facility] Interpretation and review of laboratory results Abnormal [facility] Lymphocytes/100 WBC (Bld) 28 % 15 - 40 % [facility] Lymphocytes/100 WBC (Bld) 1.39 % [facility] MCH (RBC) [Entitic mass] 31.2 pg 26.0 - 34.0 pg [facility] MCHC (RBC) [Mass/Vol] 32.9 g/dL 31.0 - 37.0 g/dL [facility] MCV (RBC) [Entitic vol] 95.0 fL 80.0 - 100.0 fL [facility] Monocytes/100 WBC (Bld) 10 % High 4 - 8 % [facility] Monocytes/100 WBC (Bld) 0.49 % [facility] Neutrophils/100 WBC (Bld) 59 % 47 - 75 % [facility] Platelet mean volume (Bld) [Entitic vol] 9.5 fL 6.0 - 12.0 fL [facility] Platelets (Bld) [#/Vol] 213 10*3/uL [facility] RBC (Bld) [#/Vol] 3.97 10*6/uL Low 4.00 - 5.20 m/uL [facility] Segmented neutrophils/100 WBC (Bld) 2.99 % [facility] WBC other (Bld) [#/Vol] 5.0 [facility] CBC with Diffon 08-28-2024 Abs. Basophil 0.01 k/uL Normal 0.00-0.20 [facility] Comment on above: Performed By: #### C OVRB #### [facility] [address] [place] [address] Master Fire Control Technician: Christian Muir MD Abs.Imm.Granulocyte 0.06 k/uL Normal 0.00-0.30 [facility] Comment on above: Performed By: #### C OVRB #### [facility] [address] [place] [address] Master Fire Control Technician: Christian Muir MD Abs.Neutrophil (Seg) 2.99 k/uL Normal 2.5-7.0 [facility] Comment on above: Performed By: #### C OVRB #### [facility] [address] [place] [address] Master Fire Control Technician: Christian Muir MD Basophils/100 WBC (Bld) 0 % Normal 0-2 [facility] Comment on above: Performed By: #### C OVRB #### [facility] [address] [place] [address] Master Fire Control Technician: Christian Muir MD Eosinophils (Bld) [#/Vol] 0.09 10*3/uL Normal 0.00-0.40 [facility] Comment on above: Performed By: #### C OVRB #### [facility] [address] [place] [address] Master Fire Control Technician: Christian Muir MD Eosinophils/100 WBC (Bld) 2 % Normal 0-5 [facility] Comment on above: Performed By: #### C OVRB #### [facility] [address] [place] [address] Master Fire Control Technician: Chrsitian Muir MD Erythrocyte distribution width (RBC) [Ratio] 13.8 % Normal 12.1-15.2 [facility] Comment on above: Performed By: #### C OVRB #### [facility] [address] [place] [address] Master Fire Control Technician: Christian Muir MD Hematocrit (Bld) [Volume fraction] 37.7 % Normal 36.0-46.0 [facility] Comment on above: Performed By: #### C OVRB #### [facility] [address] [place] [address] Master Fire Control Technician: Christian Muir MD Hemoglobin (Bld) [Mass/Vol] 12.4 g/dL Normal 12.0-16.0 [facility] Comment on above: Performed By: #### C OVRB #### [facility] [address] [place], [place] [phone] Master Fire Control Technician: Christian Muir MD Immature granulocytes/100 WBC (Bld) 1 % Normal 0-5 [facility] Comment on above: Performed By: #### C OVRB #### [facility] [address] [place], [place] [id number] Master Fire Control Technician: Christian Muir MD Lymphocytes (Bld) [#/Vol] 1.39 10*3/uL Normal 1.00-4.80 [facility] Comment on above: Performed By: #### C OVRB #### [facility] [address] [place], [place] [id number] Master Fire Control Technician: Christian Muir MD Lymphocytes/100 WBC (Bld) 28 % Normal 15-40 [facility] Comment on above: Performed By: #### C OVRB #### [facility] [address] [place], [place] [phone] Master Fire Control Technician: Christian Muir MD MCH (RBC) [Entitic mass] 31.2 pg Normal 26.0-34.0 [facility] Comment on above: Performed By: #### C OVRB #### [facility] [address] [place] [address] Master Fire Control Technician: Christian Muir MD MCHC (RBC) [Mass/Vol] 32.9 g/dL Normal 31.0-37.0 [facility] Comment on above: Performed By: #### C OVRB #### [facility] [address] [place], [place] [phone] Master Fire Control Technician: Christian Muir MD MCV (RBC) [Entitic vol] 95.0 fL Normal 80.0-100.0 [facility] Comment on above: Performed By: #### C OVRB #### [facility] [address] [place], [place] [phone] Master Fire Control Technician: Christian Muir MD Monocytes (Bld) [#/Vol] 0.49 10*3/uL Normal 0.00-1.00 [facility] Comment on above: Performed By: #### C OVRB #### [facility] [address] [place], [place] [phone] Master Fire Control Technician: Christian Muir MD Monocytes/100 WBC (Bld) 10 % High 4-8 [facility] Comment on above: Performed By: #### C OVRB #### [facility] [address] [place], [place] [phone] Master Fire Control Technician: Christian Muir MD Neutrophil (Seg) 59 % Normal 47-75 [facility] Comment on above: Performed By: #### C OVRB #### [facility] [address] [place], [place] [phone] Master Fire Control Technician: Christian Muir MD Platelet mean volume (Bld) [Entitic vol] 9.5 fL Normal 6.0-12.0 [facility] Comment on above: Performed By: #### C OVRB #### [facility] [address] [place], [place] [phone] Master Fire Control Technician: Christian Muir MD Platelets (Bld) [#/Vol] 213 10*3/uL Normal 140-450 [facility] Comment on above: Performed By: #### C OVRB #### [facility] [address] [place], [place] [phone] Master Fire Control Technician: Christian Muir MD RBC (Bld) [#/Vol] 3.97 10*6/uL Low 4.00-5.20 [facility] Comment on above: Performed By: #### C OVRB #### [facility] [address] [place], [place] [phone] Master Fire Control Technician: Christian Muir MD WBC (Bld) [#/Vol] 5.0 10*3/uL Normal 3.5-11.0 [facility] Comment on above: Performed By: #### C OVRB #### [facility] [address] [place], [place] [phone] Master Fire Control Technician: Christian Muir MD Comp Metabolic Profon 2024 Albumin [Mass/Vol] 4.0 g/dL Normal 3.5-5.2 [facility] Comment on above: Performed By: #### C OVRB #### [facility] [address] [place] [address] Master Fire Control Technician: Christian Muir MD Albumin/Glob Ratio 1.6 Normal 1.0-2.5 [facility] Comment on above: Performed By: #### C OVRB #### [facility] [address] [place] [address] Master Fire Control Technician: Christian Muir MD Alkaline Phos 58 U/L Normal 35-104 [facility] Comment on above: Performed By: #### C OVRB #### [facility] [address] [place], [place] [phone] Master Fire Control Technician: Christian Muir MD ALT [Catalytic activity/Vol] 11 U/L Normal 5-33 [facility] Comment on above: Performed By: #### C OVRB #### [facility] [address] [place], [place] [phone] Master Fire Control Technician: Christian Muir MD Anion gap [Moles/Vol] 11 mmol/L Normal 9-17 [facility] Comment on above: Performed By: #### C OVRB #### [facility] [address] [place], [place] [phone] Master Fire Control Technician: Christian Muir MD AST [Catalytic activity/Vol] 17 U/L Normal <32 [facility] Comment on above: Performed By: #### C OVRB #### [facility] [address] [place], [place] [phone] Master Fire Control Technician: Christian Muir MD Bilirubin [Mass/Vol] 0.5 mg/dL Normal 0.3-1.2 [facility] Comment on above: Performed By: #### C OVRB #### [facility] [address] [place], [place] [phone] Master Fire Control Technician: Christian Muir MD Calcium [Mass/Vol] 9.4 mg/dL Normal 8.6-10.4 [facility] Comment on above: Performed By: #### C OVRB #### [facility] [address] [place], [place] [phone] Master Fire Control Technician: Christian Muir MD Chloride [Moles/Vol] 105 mmol/L Normal 98-107 [facility] Comment on above: Performed By: #### C OVRB #### [facility] [address] [place], [place] [phone] Master Fire Control Technician: Christian Muir MD CO2 [Moles/Vol] 26 mmol/L Normal 20-31 [facility] Comment on above: Performed By: #### C OVRB #### [facility] [address] [place], [place] [phone] Master Fire Control Technician: Christian Muir MD Creatinine [Mass/Vol] 1.3 mg/dL High 0.5-0.9 [facility] Comment on above: Performed By: #### C OVRB #### [facility] [address] [place], [place] [address] Master Fire Control Technician: Christian Muir MD GFR/1.73 sq M.predicted among non-blacks MDRD (S/P/Bld) [Vol rate/Area] 42 mL/min/{1.73_m2} Low >60 [facility] Comment on above: Result Comment: These results [...] affects renal tubular secretion. Performed By: #### C OVRB #### [facility] [address] [place], [place] [phone] Master Fire Control Technician: Christian Muir MD Glucose [Mass/Vol] 96 mg/dL Normal 70-99 [facility] Comment on above: Performed By: #### C OVRB #### [facility] [address] [place], [place] [phone] Master Fire Control Technician: Christian Muir MD Potassium [Moles/Vol] 4.2 mmol/L Normal 3.7-5.3 [facility] Comment on above: Performed By: #### C OVRB #### [facility] [address] [place], [place] [phone] Master Fire Control Technician: Christian Muir MD Protein [Mass/Vol] 6.5 g/dL Normal 6.4-8.3 [facility] Comment on above: Performed By: #### C OVRB #### [facility] [address] [place], [place] [id number] Master Fire Control Technician: Christian Muir MD Sodium [Moles/Vol] 142 mmol/L Normal 135-144 [facility] Comment on above: Performed By: #### C OVRB #### [facility] [address] [place] [address] Master Fire Control Technician: Christian Muir MD Urea nitrogen [Mass/Vol] 28 mg/dL High 8-23 [facility] Comment on above: Performed By: #### C OVRB #### [facility] [address] [place], [place] [id number] Master Fire Control Technician: Christian Muir MD [facility] Metabolic Pane [facility] 08-28-2024 Albumin [Mass/Vol] 4.0 g/dL 3.5 - 5.2 g/dL [facility] Albumin/Globulin [Mass ratio] 1.6 {ratio} 1.0 - 2.5 [facility] ALP [Catalytic activity/Vol] 58 U/L 35 - 104 U/L [facility] ALT [Catalytic activity/Vol] 11 U/L 5 - 33 U/L [facility] Anion gap [Moles/Vol] 11 mmol/L 9 - 17 mmol/L [facility] AST [Catalytic activity/Vol] 17 U/L NINF - 32 U/L [facility] Bilirubin [Mass/Vol] 0.5 mg/dL 0.3 - 1 .2 mg/dL [facility] Calcium [Mass/Vol] 9.4 mg/dL 8.6 - 10. 4 mg/dL [facility] Chloride [Moles/Vol] 105 mmol/L 98 - 10 7 mmol/L [facility] CO2 [Moles/Vol] 26 mmol/L 20 - 31 mmol/L [facility] Creatinine [Mass/Vol] 1.3 mg/dL High 0.5 - 0.9 mg/dL [facility] Est, Glom Filt Rate 42 Low - PINF [facility] Comment on above: These results are not [...] that affects renal tubular secretion. Glucose [Mass/Vol] 96 mg/dL 70 - 99 mg/dL [facility] Interpretation and review of laboratory results Abnormal [facility] Potassium [Moles/Vol] 4.2 mmol/L 3.7 - 5.3 mmol/L [facility] Protein [Mass/Vol] 6.5 g/dL 6.4 - 8.3 g/dL [facility] Sodium [Moles/Vol] 142 mmol/L 135 - 144 mmol/L [facility] Urea nitrogen [Mass/Vol] 28 mg/dL High 8 - 23 mg/dL [facility] Lipid Panelon 08-28-2024 Cholesterol [Mass/Vol] 145 mg/dL 0 - 199 mg/dL [facility] Comment on above: Cholesterol Guidelines: <200 Desirable 200-240 Borderline >240 Undesirable Cholesterol in HDL [Mass/Vol] 52 mg/dL 40 - PINF mg/dL [facility] Comment on above: HDL Guidelines: <40 Undesirable 40-59 Borderline >59 Desirable Cholesterol in LDL [Mass/Vol] 74 mg/dL 0 - 100 mg/dL [facility] Comment on above: LDL Guidelines: <100 Desirable 100-129 Near to/above Desirable 130-159 Borderline >159 Undesirable Direct (measured) LDL and calculated LDL are not interchangeable tests. Cholesterol in VLDL [Mass/Vol] 19 mg/dL 1 - 30 mg/dL [facility] Cholesterol.total/Cho lesterol in HDL [Mass ratio] 2.8 {ratio} [facility] Triglyceride [Mass/Vol] 94 mg/dL NINF - 150 mg/dL [facility] Comment on above: Triglyceride Guidelines: <150 Desirable 150-199 Borderline 200-499 High >499 Very high Based on AHA Guidelines for fasting triglyceride, March 2012. Lipid Profileon 08-28-2024 Cholesterol [Mass/Vol] 145 mg/dL Normal 0-199 [facility] Comment on above: Result Comment: Cholesterol Guidelines: <200 Desirable 200-240 Borderline >240 Undesirable Performed By: #### C OVRB #### [facility] [address] [facility] [address] Master Fire Control Technician: Christian Muir MD Cholesterol in HDL [Mass/Vol] 52 mg/dL Normal >40 [facility] Comment on above: Result Comment: HDL Guidelines: <40 Undesirable 40-59 Borderline >59 Desirable Performed By: #### C OVRB #### [facility] [address] [facility] [place] [address] Master Fire Control Technician: Christian Muir MD Cholesterol in LDL [Mass/Vol] 74 mg/dL Normal 0-100 [facility] Comment on above: Result Comment: LDL Guidelines: <100 Desirable 100-129 Near to/above Desirable 130-159 Borderline >159 Undesirable Direct (measured) LDL and calculated LDL are not interchangeable tests. Performed By: #### C OVRB #### [facility] [address] [place] [address] Master Fire Control Technician: Christian Muir MD Cholesterol in VLDL [Mass/Vol] 19 mg/dL Normal 1-30 [facility] Comment on above: Performed By: #### C OVRB #### [facility] [address] [place] [address] Master Fire Control Technician: Christian Muir MD Cholesterol.total/Cho lesterol in HDL [Mass ratio] 2.8 {ratio} Normal [facility] Comment on above: Performed By: #### C OVRB #### [facility] [address] [place] [address] Master Fire Control Technician: Christian Muir MD Triglyceride [Mass/Vol] 94 mg/dL Normal <150 [facility] Comment on above: Result Comment: Triglyceride Guidelines: <150 Desirable 150-199 Borderline 200-499 High >499 Very high Based on AHA Guidelines for fasting triglyceride, March 2012. Performed By: #### C OVRB #### [facility] [address] [place] [address] Master Fire Control Technician: Christian Muir MD Magnesiumon 08-28-2024 Magnesium [Mass/Vol] 2.2 mg/dL 1.6 - 2 .6 mg/dL [facility] Magnesium [Mass/Vol] 2.2 mg/dL Normal 1.6-2.6 [facility] Comment on above: Performed By: #### C OVRB #### [facility] [address] [place] [address] Master Fire Control Technician: Christian Muir MD No Panel Informationon 08-28 [facility] TSH w/reflex to FT4on 2024 Thyroid Stim. Horm. 2.59 uIU/mL Normal 0.27-4.20 [facility] Comment on above: Performed By: #### C OVRB #### [facility] [address] [place] [address] Master Fire Control Technician: Christian Muir MD TSH with Reflexon 08-28-2024 TSH Qn 2.59 m[IU]/L [facility] Vitamin D 25 Hydroxyon 08-28 25-hydroxyvitamin D3 [Mass/Vol] 89.9 ng/mL 30.0 - 100.0 ng/mL [facility] Comment on above: Reference Range: Vitamin D status Range Deficiency <20 ng/mL Mild Deficiency 20-30 ng/mL Sufficiency 30-100 ng/mL Toxicity >100 ng/mL Vitamin D 25 OHon 08-28-2024 Vitamin D 25 [place] 89.9 ng/mL Normal 30.0-100.0 [facility] Comment on above: Result Comment: Reference Range: Vitamin D status Range Deficiency <20 ng/mL Mild Deficiency 20-30 ng/mL Sufficiency 30-100 ng/mL Toxicity >100 ng/mL Performed By: #### C OVRB #### [facility] [address] [place] [address] Master Fire Control Technician: Christian Muir MD Alanine aminotransferase [En zymatic activity/volume] in Serum or PlasmaOrdered By: Obie Hylton on 08-11-2024 ALT [Catalytic activity/Vol] Alanine aminotransferase [Enzymatic activity/volume] in Serum or Plasma [facility] Albumin [Mass/volume] in Ser um or Plasma by Bromocresol green (BCG) dye binding methoOrdered By: Obie Hylton on 08-11-2024 Albumin BCG dye [Mass/Vol] Albumin [Mass/volume] in Serum or Plasma by Bromocresol green (BCG) dye binding metho 3.5-5.7 [facility] Alkaline phosphatase [Enzyma tic activity/volume] in Serum or PlasmaOrdered By: Obie Hylton on 08-11-2024 ALP [Catalytic activity/Vol] Alkaline phosphatase [Enzymatic activity/volume] in Serum or Plasma 34-104 [facility] Appearance of UrineOrdered B y: Obie Hylton on 08-11-2024 Appearance (U) Urine appearance Clear [facility] Aspartate aminotransferase [ Enzymatic activity/volume] in Serum or PlasmaOrdered By: Obie Hylton on 08-11-2024 AST [Catalytic activity/Vol] Aspartate aminotransferase [Enzymatic activity/volume] in Serum or Plasma 13-39 [facility] Bacteria [Presence] in Urine by AutomatedOrdered By: Obie Hylton on 08-11-2024 Bacteria Auto Ql (U) Bacteria [Presence] in Urine by Automated None Seen [facility] Basophils Auto (Bld) [#/Vol] Ordered By: Obie Hylton on 08-11-2024 Basophils (Bld) [#/Vol] Automated basophil count 0.0-0.2 [facility] Basophils/100 WBC Auto (Bld) Ordered By: Obie Hylton on 08-11-2024 Basophils/100 WBC (Bld) Automated basophil % . [facility] Bilirubin Test strip Ql (U)O rdered By: Obie Hylton on 08-11-2024 Bilirubin Ql (U) Bilirubin.total [Pre sence] in Urine by Test strip Negative [facility] Bilirubin.total [Mass/volume ] in Serum or PlasmaOrdered By: Obie Hylton on 08-11-2024 Bilirubin [Mass/Vol] Bilirubin.total [Mass/volume] in Serum or Plasma 0.3-1.0 [facility] Calcium [Mass/volume] in Ser um or PlasmaOrdered By: Obie Hylton on 08-11-2024 Calcium [Mass/Vol] Calcium [Mass/volume ] in Serum or Plasma 8.6-10.3 [facility] Carbon dioxide, total [Moles /volume] in Serum or PlasmaOrdered By: Obie Hylton on 08-11-2024 CO2 [Moles/Vol] Carbon dioxide, tota l [Moles/volume] in Serum or Plasma 21.0-31.0 [facility] Chloride [Moles/volume] in S liat or PlasmaOrdered By: Obie Hylton on 08-11-2024 Chloride [Moles/Vol] Chloride [Moles/vol ume] in Serum or Plasma 98-107 [facility] Color Auto (U)Ordered By: Cindy ttjesus Hylton on 08-11-2024 Color (U) Color of Urine by Auto Yellow Fi relaFormerly [facility] Complement C3on 08-11-2024 Complement C3 130 mg/dL Normal 82-167 [facility] Comment on above: Order Comment: Speci men Comment: A duplicate report has been generated due to demographic Specimen Comment: updates. Performed By: #### C 4, C3, CH50 #### [facility] , #### CBC, ESR, ADDONUAPLUS, CMP #### [facility] [address] [place] [address] Complement C4on 08-11-2024 Complement C4 23 mg/dL Normal 12-38 [facility] Comment on above: Order Comment: Speci men Comment: A duplicate report has been generated due to demographic Specimen Comment: updates. Result Comment: Perf ormed at: [facility] [id number] Master Fire Control Technician: Usman Draper PhD, Phone: [phone] PERFORMED BY: [place] [address] PATHOLOGIST NIGHT WORKER DOMINICK MONTIEL M.D. Performed By: #### C 4, C3, CH50 #### [facility] , #### CBC, ESR, ADDONUAPLUS, CMP #### [address] Complement Total (CH50)on Complement Total (CH50) 54 Normal >41 [facility] Comment on above: Order Comment: Speci men Comment: A duplicate report has been generated due to demographic Specimen Comment: updates. Result Comment: Age Male Female 1 - [...] determine out of range values. Performed at: [facility] [email or web address] [id number] Master Fire Control Technician: Usman Draper PhD, Phone: [phone] PERFORMED BY: [place] [address] PATHOLOGIST NIGHT WORKER DOMINICK MONTIEL M.D. Performed By: #### C 4, C3, CH50 #### [facility] , #### CBC, ESR, ADDONUAPLUS, CMP #### [address] Complete Blood Count Auto Di ffon 08-11-2024 Basophils (Bld) [#/Vol] 0.0 10*3/uL Normal 0.0-0.2 [facility] Comment on above: Performed By: #### E SR, ADDONUAPLUS, CBC, CMP #### [address] #### C3, C4, CH50 #### [facility] , Basophils/100 WBC (Bld) 0.3 % Normal . [facility] Comment on above: Performed By: #### E SR, ADDONUAPLUS, CBC, CMP #### [address] #### C3, C4, CH50 #### [facility] , Eosinophils (Bld) [#/Vol] 0.1 10*3/uL Normal 0.0-0.45 [facility] Comment on above: Performed By: #### E SR, ADDONUAPLUS, CBC, CMP #### [address] #### C3, C4, CH50 #### [facility] , Eosinophils/100 WBC (Bld) 1.9 % Normal . [facility] Comment on above: Performed By: #### E SR, ADDONUAPLUS, CBC, CMP #### [address] #### C3, C4, CH50 #### [facility] , Erythrocyte distribution width (RBC) [Ratio] 14.6 % Normal 11.9-15.3 [facility] Comment on above: Performed By: #### E SR, ADDONUAPLUS, CBC, CMP #### [address] #### C3, C4, CH50 #### [facility] , Hematocrit (Bld) [Volume fraction] 36.0 % Normal 34.0-46.4 [facility] Comment on above: Performed By: #### E SR, ADDONUAPLUS, CBC, CMP #### [place] [address] [place] #### C3, C4, CH50 #### [facility] , Hemoglobin (Bld) [Mass/Vol] 12.3 g/dL Normal 11.8-15.4 [facility] Comment on above: Performed By: #### E SR, ADDONUAPLUS, CBC, CMP #### [place] [address] [place] #### C3, C4, CH50 #### [facility] , Lymphocytes (Bld) [#/Vol] 1.2 10*3/uL Normal 1.00-4.8 [facility] Comment on above: Performed By: #### E SR, ADDONUAPLUS, CBC, CMP #### [address] #### C3, C4, CH50 #### [facility] , Lymphocytes/100 WBC (Bld) 24.1 % Normal . [facility] Comment on above: Performed By: #### E SR, ADDONUAPLUS, CBC, CMP #### [place] [address] [place] #### C3, C4, CH50 #### [facility] , MCH (RBC) [Entitic mass] 31.9 pg Normal 24.7-34.3 [facility] Comment on above: Performed By: #### E SR, ADDONUAPLUS, CBC, CMP #### [place] [address] [place] #### C3, C4, CH50 #### [facility] , MCV (RBC) [Entitic vol] 93.7 fL Normal 80-100 [facility] Comment on above: Performed By: #### E SR, ADDONUAPLUS, CBC, CMP #### [place] [address] [place] #### C3, C4, CH50 #### [facility] , Mean Corpuscular HGB Conc 34.0 g/dL Normal 32.0-35.0 [facility] Comment on above: Performed By: #### E SR, ADDONUAPLUS, CBC, CMP #### [address] #### C3, C4, CH50 #### [facility] , Monocytes (Bld) [#/Vol] 0.4 10*3/uL Normal 0.0-0.8 [facility] Comment on above: Performed By: #### E SR, ADDONUAPLUS, CBC, CMP #### [place] [address] [place] #### C3, C4, CH50 #### [facility] , Monocytes/100 WBC (Bld) 7.7 % Normal . [facility] Comment on above: Performed By: #### E SR, ADDONUAPLUS, CBC, CMP #### [place] [address] [place] #### C3, C4, CH50 #### [facility] , Neutrophils (Bld) [#/Vol] 3.4 10*3/uL Normal 1.8-7.7 [facility] Comment on above: Performed By: #### E SR, ADDONUAPLUS, CBC, CMP #### [place] [address] [place] #### C3, C4, CH50 #### [facility] , Neutrophils/100 WBC (Bld) 66.0 % Normal . [facility] Comment on above: Performed By: #### E SR, ADDONUAPLUS, CBC, CMP #### [address] #### C3, C4, CH50 #### [facility] , NRBC% 0.1 /100{WBC} Normal 0-0.5 [facility] Comment on above: Performed By: #### E SR, ADDONUAPLUS, CBC, CMP #### [place] [address] [place] #### C3, C4, CH50 #### [facility] , Platelet mean volume (Bld) [Entitic vol] 8.4 fL Normal 6.3-10.7 [facility] Comment on above: Performed By: #### E SR, ADDONUAPLUS, CBC, CMP #### [address] #### C3, C4, CH50 #### [facility] , Platelets (Bld) [#/Vol] 228 10*3/uL Normal 150-450 [facility] Comment on above: Performed By: #### E SR, ADDONUAPLUS, CBC, CMP #### [place] [address] [place] #### C3, C4, CH50 #### [facility] , RBC (Bld) [#/Vol] 3.85 10*6/uL Normal 3.60-5.[address] [facility] Comment on above: Performed By: #### E SR, ADDONUAPLUS, CBC, CMP #### [facility] [address] [place] [address] [place] #### C3, C4, CH50 #### [facility] , WBC (Bld) [#/Vol] 5.1 10*3/uL Normal 3.8-11.6 [facility] Comment on above: Performed By: #### E SR, ADDONUAPLUS, CBC, CMP #### [place] [address] [place] #### C3, C4, CH50 #### [facility] , Comprehensive Metabolic Pane trevor 08-11-2024 Albumin [Mass/Vol] 4.0 g/dL Normal 3.5-5.7 [facility] Comment on above: Performed By: #### E SR, ADDONUAPLUS, CBC, CMP #### [address] #### C3, C4, CH50 #### [facility] , Albumin/Globulin [Mass ratio] 1.7 {ratio} Normal [facility] Comment on above: Performed By: #### E SR, ADDONUAPLUS, CBC, CMP #### [address] #### C3, C4, CH50 #### [facility] , ALP [Catalytic activity/Vol] 54 U/L Normal 34-104 [facility] Comment on above: Result Comment: PERF ORMED BY: [place] [address] PATHOLOGIST NIGHT WORKER DOMINICK MONTIEL M.D. Performed By: #### E SR, ADDONUAPLUS, CBC, CMP #### [address] #### C3, C4, CH50 #### [facility] , ALT [Catalytic activity/Vol] 11 U/L Normal 7-52 [facility] Comment on above: Performed By: #### E SR, ADDONUAPLUS, CBC, CMP #### [address] #### C3, C4, CH50 #### [facility] , Anion gap [Moles/Vol] 10.1 mmol/L Normal 6.0-15.0 [facility] Comment on above: Performed By: #### E SR, ADDONUAPLUS, CBC, CMP #### [facility] [address] [place] [address] #### C3, C4, CH50 #### [facility] , AST [Catalytic activity/Vol] 16 U/L Normal 13-39 [facility] Comment on above: Performed By: #### E SR, ADDONUAPLUS, CBC, CMP #### [address] #### C3, C4, CH50 #### [facility] , Bilirubin [Mass/Vol] 0.5 mg/dL Normal 0.3-1.0 [facility] Comment on above: Performed By: #### E SR, ADDONUAPLUS, CBC, CMP #### [facility] [address] [place] [address] [place] #### C3, C4, CH50 #### [facility] , Calcium [Mass/Vol] 9.3 mg/dL Normal 8.6-10.3 [facility] Comment on above: Performed By: #### E SR, ADDONUAPLUS, CBC, CMP #### [address] #### C3, C4, CH50 #### [facility] , Chloride [Moles/Vol] 107 mmol/L Normal 98-107 [facility] Comment on above: Performed By: #### E SR, ADDONUAPLUS, CBC, CMP #### [facility] [address] [place] [address] [place] #### C3, C4, CH50 #### [facility] , CO2 [Moles/Vol] 27.1 mmol/L Normal 21.0-31.0 [facility] Comment on above: Performed By: #### E SR, ADDONUAPLUS, CBC, CMP #### [place] [id number] [place] #### C3, C4, CH50 #### [facility] , Creatinine [Mass/Vol] 1.30 mg/dL High 0.60-1.20 [facility] Comment on above: Performed By: #### E SR, ADDONUAPLUS, CBC, CMP #### [place] [address] [place] #### C3, C4, CH50 #### [facility] , Estimated GFR 41.829 mL/Min Normal [facility] Comment on above: Performed By: #### E SR, ADDONUAPLUS, CBC, CMP #### [place] [address] [place] #### C3, C4, CH50 #### [facility] , Globulin (S) [Mass/Vol] 2.3 g/dL Normal [facility] Comment on above: Performed By: #### E SR, ADDONUAPLUS, CBC, CMP #### [place] [address] [place] #### C3, C4, CH50 #### [facility] , Glucose [Mass/Vol] 94 mg/dL Normal 70-100 [facility] Comment on above: Result Comment: [place] Glucose Reference Range is dependent on time and content of last meal. Glucose of more than 200 mg/dL in a nonstressed, ambulatory subject supports the diagnosis of Diabetes Mellitus. ADA recommended reference range Performed By: #### E SR, ADDONUAPLUS, CBC, CMP #### [place] [address] [place] #### C3, C4, CH50 #### [facility] , Potassium [Moles/Vol] 4.2 mmol/L Normal 3.5-5.1 [facility] Comment on above: Performed By: #### E SR, ADDONUAPLUS, CBC, CMP #### [place] [address] [place] #### C3, C4, CH50 #### [facility] , Protein [Mass/Vol] 6.3 g/dL Low 6.4-8.9 [facility] Comment on above: Performed By: #### E SR, ADDONUAPLUS, CBC, CMP #### [place] [address] [place] #### C3, C4, CH50 #### [facility] , Sodium [Moles/Vol] 140 mmol/L Normal 136-145 [facility] Comment on above: Performed By: #### E SR, ADDONUAPLUS, CBC, CMP #### [address] #### C3, C4, CH50 #### [facility] , Urea nitrogen [Mass/Vol] 30 mg/dL High 7-25 [facility] Comment on above: Performed By: #### E SR, ADDONUAPLUS, CBC, CMP #### [address] #### C3, C4, CH50 #### [facility] , Creatinine [Mass/volume] in Serum or PlasmaOrdered By: Obie Hylton on 08-11-2024 Creatinine [Mass/Vol] Creatinine [Mass/v olume] in Serum or Plasma High 0.60-1.20 [facility] Dipstick and Microscopicon 0 08-11-2024 Appearance (U) Clear Normal Clear [facility] Comment on above: Order Comment: Name Collection Type:: Clean-Voided Midstream Performed By: #### C 4, C3, CH50 #### [facility] , #### CBC, ESR, ADDONUAPLUS, CMP #### [address] Bacteria,Urine Rare Normal None Seen [facility] Comment on above: Order Comment: Name Collection Type:: Clean-Voided Midstream Performed By: #### C 4, C3, CH50 #### [facility] , #### CBC, ESR, ADDONUAPLUS, CMP #### [address] Bilirubin,Urine Negative Normal Negative [facility] Comment on above: Order Comment: Name Collection Type:: Clean-Voided Midstream Performed By: #### C 4, C3, CH50 #### [facility] , #### CBC, ESR, ADDONUAPLUS, CMP #### [address] Color (U) Yellow Normal Yellow [facility] Comment on above: Order Comment: Name Collection Type:: Clean-Voided Midstream Performed By: #### C 4, C3, CH50 #### [facility] , #### CBC, ESR, ADDONUAPLUS, CMP #### [address] Glucose Ql (U) Normal Normal Normal [facility] Comment on above: Order Comment: Name Collection Type:: Clean-Voided Midstream Performed By: #### C 4, C3, CH50 #### [facility] , #### CBC, ESR, ADDONUAPLUS, CMP #### [address] Hyaline Casts,Urine 0-8 Normal 0-[address] [facility] Comment on above: Order Comment: Name Collection Type:: Clean-Voided Midstream Performed By: #### C 4, C3, CH50 #### [facility] , #### CBC, ESR, ADDONUAPLUS, CMP #### [address] Ketones Ql (U) Negative Normal Negative [facility] Comment on above: Order Comment: Name Collection Type:: Clean-Voided Midstream Performed By: #### C 4, C3, CH50 #### [facility] , #### CBC, ESR, ADDONUAPLUS, CMP #### [address] Leukocyte esterase Test strip Ql (U) Negative Normal Negative [facility] Comment on above: Order Comment: Name Collection Type:: Clean-Voided Midstream Performed By: #### C 4, C3, CH50 #### [facility] , #### CBC, ESR, ADDONUAPLUS, CMP #### [address] Mucus,Urine Rare Normal [facility] Comment on above: Order Comment: Name Collection Type:: Clean-Voided Midstream Result Comment: PERF ORMED BY: [place] [address] PATHOLOGIST NIGHT WORKER DOMINICK MONTIEL M.D. Performed By: #### C 4, C3, CH50 #### [facility] , #### CBC, ESR, ADDONUAPLUS, CMP #### [address] Nitrite,Urine Negative Normal Negative [facility] Comment on above: Order Comment: Name Collection Type:: Clean-Voided Midstream Performed By: #### C 4, C3, CH50 #### [facility] , #### CBC, ESR, ADDONUAPLUS, CMP #### [address] Occult Blood,Urine Negative Normal Negative [facility] Comment on above: Order Comment: Name Collection Type:: Clean-Voided Midstream Performed By: #### C 4, C3, CH50 #### [facility] , #### CBC, ESR, ADDONUAPLUS, CMP #### [address] pH (U) 6.0 [pH] Normal 5.0-9.0 [facility] Comment on above: Order Comment: Name Collection Type:: Clean-Voided Midstream Performed By: #### C 4, C3, CH50 #### [facility] , #### CBC, ESR, ADDONUAPLUS, CMP #### [address] Protein,Urine Negative Normal Negative [facility] Comment on above: Order Comment: Name Collection Type:: Clean-Voided Midstream Performed By: #### C 4, C3, CH50 #### [facility] , #### CBC, ESR, ADDONUAPLUS, CMP #### [address] RBC,Urine 3-4 Normal 0-4 [facility] Comment on above: Order Comment: Name Collection Type:: Clean-Voided Midstream Performed By: #### C 4, C3, CH50 #### [facility] , #### CBC, ESR, ADDONUAPLUS, CMP #### [address] Specificy Mil[place],Urine 1.023 Normal 1.001-1.03 0 [facility] Comment on above: Order Comment: Name Collection Type:: Clean-Voided Midstream Performed By: #### C 4, C3, CH50 #### [facility] , #### CBC, ESR, ADDONUAPLUS, CMP #### [address] Squamous Epithelial Cell,Urine 3-4 High 0-2 [facility] Comment on above: Order Comment: Name Collection Type:: Clean-Voided Midstream Performed By: #### C 4, C3, CH50 #### [facility] , #### CBC, ESR, ADDONUAPLUS, CMP #### [address] Urobilinogen,Urine 3 mg/dL High Normal [facility] Comment on above: Order Comment: Name Collection Type:: Clean-Voided Midstream Performed By: #### C 4, C3, CH50 #### [facility] , #### CBC, ESR, ADDONUAPLUS, CMP #### [facility] [address] [place] [address] WBC,Urine 1-2 Normal 0-4 [facility] Comment on above: Order Comment: Name Collection Type:: Clean-Voided Midstream Performed By: #### C 4, C3, CH50 #### [facility] , #### CBC, ESR, ADDONUAPLUS, CMP #### [facility] [address] [place] [address] Eosinophils Auto (Bld) [#/Vo l]Ordered By: Obie Hylton on 08-11-2024 Eosinophils (Bld) [#/Vol] Automated eosinophil count 0.0-0.45 [facility] Eosinophils/100 WBC Auto (Bl d)Ordered By: Obie Hylton on 08-11-2024 Eosinophils/100 WBC (Bld) Automated eosinophil % . [facility] Epithelial cells.squamous [# /area] in Urine sediment by Automated countOrdered By: Obie Hylton on 08-11-2024 Epithelial cells.squamous Auto (Urine sed) [#/Area] Epithelial cells.squamous [#/area] in Urine sediment by Automated count High 0-2 [facility] Erythrocyte Sedimentation Ra heather 08-11-2024 ESR (Bld) [Velocity] 23 mm/h Normal 0-29 [facility] Comment on above: Result Comment: PERF ORMED BY: [place] [address] PATHOLOGIST NIGHT WORKER DOMINICK MONTIEL M.D. Performed By: #### C 4, C3, CH50 #### [facility] , #### CBC, ESR, ADDONUAPLUS, CMP #### [facility] [address] [place] [address] Erythrocyte distribution wid th Auto (RBC) [Ratio]Ordered By: Obie Hylton on 08-11-2024 Erythrocyte distribution width (RBC) [Ratio] Erythrocyte distribution width [Ratio] by Automated count 11.9-15.3 [facility] Erythrocyte sedimentation ra te by Photometric methodOrdered By: Obie Hylton on 08-11-2024 ESR Photometric method (Bld) [Velocity] Erythrocyte sedimentation rate by Photometric method 0-29 [facility] Erythrocytes [#/area] in Uri ne sediment by Automated countOrdered By: Obie Hylton on 08-11-2024 RBC Auto (Urine sed) [#/Area] Erythrocytes [#/area] in Urine sediment by Automated count 0-4 [facility] Globulin Calc (S) [Mass/Vol] Ordered By: Obie Hylton on 08-11-2024 Globulin (S) [Mass/Vol] Serum globulin measurement by calculation (mass/volume) [facility] Glucose [Mass/volume] in Ser um or PlasmaOrdered By: Obie Hylton on 08-11-2024 Glucose [Mass/Vol] Glucose [Mass/volume ] in Serum or Plasma 70-100 [facility] Comment on above: ADA recommended refe rence rangeRandom Glucose Reference Range is dependent on time and content of last meal. Glucose of more than 200 mg/dL in a nonstressed, ambulatory subject supports the diagnosis of Diabetes Mellitus. Glucose [Mass/volume] in Uri ne by Test stripOrdered By: Obie Hylton on 08-11-2024 Glucose Test strip (U) [Mass/Vol] Glucose [Mass/volume] in Urine by Test strip Normal [facility] Hematocrit Auto (Bld) [Volum e fraction]Ordered By: Obie Hylton on 08-11-2024 Hematocrit (Bld) [Volume fraction] Hematocrit [Volume Fraction] of Blood by Automated count 34.0-46.4 [facility] Hemoglobin Test strip Ql (U) Ordered By: Obie Hylton on 08-11-2024 Hemoglobin Ql (U) Hemoglobin [Presence ] in Urine by Test strip Negative [facility] Hemoglobin [Mass/volume] in BloodOrdered By: Obie Hylton on 08-11-2024 Hemoglobin (Bld) [Mass/Vol] Hemoglobin [Mass/volume] in Blood 11.8-15.4 [facility] Hyaline casts [#/area] in Ur ine sediment by Automated countOrdered By: Obie Hylton on 08-11-2024 Hyaline casts Auto (Urine sed) [#/Area] Hyaline casts [#/area] in Urine sediment by Automated count 0-8 [facility] Ketones Test strip Ql (U)Ord ered By: Obie Hylton on 08-11-2024 Ketones Ql (U) Ketones [Presence] i n Urine by Test strip Negative [facility] Leukocyte esterase [Presence ] in Urine by Test stripOrdered By: Obie Hylton on 08-11-2024 Leukocyte esterase Test strip Ql (U) Leukocyte esterase [Presence] in Urine by Test strip Negative [facility] Leukocytes [#/area] in Urine sediment by Automated countOrdered By: Obie Hylton on 08-11-2024 WBC Auto (Urine sed) [#/Area] Leukocytes [#/area] in Urine sediment by Automated count 0-4 [facility] Leukocytes [#/volume] correc pepito for nucleated erythrocytes in Blood by Automated counOrdered By: Obie Hylton on 08-11-2024 WBC corrected for nucl RBC Auto (Bld) [#/Vol] Leukocytes [#/volume] corrected for nucleated erythrocytes in Blood by Automated coun 3.8-11.6 [facility] Lymphocytes Auto (Bld) [#/Vo l]Ordered By: Obie Hylton on 08-11-2024 Lymphocytes (Bld) [#/Vol] Lymphocytes [#/volume] in Blood by Automated count 1.00-4.8 [facility] Lymphocytes/100 WBC Auto (Bl d)Ordered By: Obie Hylton on 08-11-2024 Lymphocytes/100 WBC (Bld) Lymphocytes/100 leukocytes in Blood by Automated count . [facility] MCH Auto (RBC) [Entitic mass ]Ordered By: Obie Hylton on 08-11-2024 MCH (RBC) [Entitic mass] MCH [Entitic mass] by Automated count 24.7-34.3 [facility] MCHC Auto (RBC) [Mass/Vol]Or dered By: Obie Hylton on 08-11-2024 MCHC (RBC) [Mass/Vol] MCHC [Mass/volume] by Automated count 32.0-35.0 [facility] MCV Auto (RBC) [Entitic vol] Ordered By: Obie Hylton on 08-11-2024 MCV (RBC) [Entitic vol] MCV [Entitic volume] by Automated count 80-100 [facility] Monocytes Auto (Bld) [#/Vol] Ordered By: Obie Hylton on 08-11-2024 Monocytes (Bld) [#/Vol] Automated blood monocyte count 0.0-0.8 [facility] Monocytes/100 WBC Auto (Bld) Ordered By: Obie Hylton on 08-11-2024 Monocytes/100 WBC (Bld) Automated monocyte % . [facility] Mucus [Presence] in Urine by AutomatedOrdered By: Obie Hylton on 08-11-2024 Mucus Auto Ql (U) Mucus [Presence] in Urine by Automated [facility] Neutrophils Auto (Bld) [#/Vo l]Ordered By: Obie Hylton on 08-11-2024 Neutrophils (Bld) [#/Vol] Neutrophils [#/volume] in Blood by Automated count 1.8-7.7 [facility] Neutrophils/100 WBC Auto (Bl d)Ordered By: Obie Hylton on 08-11-2024 Neutrophils/100 WBC (Bld) Automated neutrophil % . [facility] Nitrite Test strip Ql (U)Ord ered By: Obie Hylton on 08-11-2024 Nitrite Ql (U) Nitrite [Presence] i n Urine by Test strip Negative [facility] No Panel InformationOrdered By: Obie Hylton on 08-11-2024 Estimated GFR (CKD-EPI) 41.829 mL/Min [facility] Creatinine Clearance (Chem N/A [facility] Nucleated erythrocytes [Pres ence] in Blood by Automated countOrdered By: Obie Hylton on 08-11-2024 Nucleated RBC Auto Ql (Bld) Nucleated erythrocytes [Presence] in Blood by Automated count 0-0.5 [facility] Platelet mean volume Auto (B ld) [Entitic vol]Ordered By: Obie Hylton on 08-11-2024 Platelet mean volume (Bld) [Entitic vol] Platelet mean volume [Entitic volume] in Blood by Automated count 6.3-10.7 [facility] Platelets Auto (Bld) [#/Vol] Ordered By: Obie Hylton on 08-11-2024 Platelets (Bld) [#/Vol] Platelets [#/volume] in Blood by Automated count 150-450 [facility] Potassium [Moles/volume] in Serum or PlasmaOrdered By: Obie Hylton on 08-11-2024 Potassium [Moles/Vol] Potassium [Moles/v olume] in Serum or Plasma 3.5-5.1 [facility] Protein Test strip (U) [Mass /Vol]Ordered By: Obie Hylton on 08-11-2024 Protein (U) [Mass/Vol] Protein [Mass/volume] in Urine by Test strip Negative [facility] Protein [Mass/volume] in Ser um or PlasmaOrdered By: Obie Hylton on 08-11-2024 Protein [Mass/Vol] Protein [Mass/volume ] in Serum or Plasma Low 6.4-8.9 [facility] RBC Auto (Bld) [#/Vol]Ordere d By: Obie Hylton on 08-11-2024 RBC (Bld) [#/Vol] Erythrocytes [#/volu me] in Blood by Automated count 3.60-5.00 [facility] Serum or plasma albumin/glob ulin mass ratioOrdered By: Obie Hylton on 08-11-2024 Albumin/Globulin [Mass ratio] Serum or plasma albumin/globulin mass ratio [facility] Serum or plasma anion gap de terminationOrdered By: Obie Hylton on 08-11-2024 Anion gap [Moles/Vol] Serum or plasma an ion gap determination 6.0-15.0 [facility] Serum or plasma complement C 3 measurement (mass/volume)Ordered By: Obie Hylton on 08-11-2024 Complement C3 [Mass/Vol] Serum or plasma complement C3 measurement (mass/volume) 82-167 [facility] Serum or plasma complement C 4 measurement (mass/volume)Ordered By: Obie Hylton on 08-11-2024 Complement C4 [Mass/Vol] Serum or plasma complement C4 measurement (mass/volume) 12-38 [facility] Comment on above: Performed at: [address] [id number] Director: Usman Draper PhD, Phone: [phone] Sodium [Moles/volume] in Ser um or PlasmaOrdered By: Obie Hylton on 08-11-2024 Sodium [Moles/Vol] Sodium [Moles/volume ] in Serum or Plasma 136-145 [facility] Specific gravity Test strip (U) [Rel density]Ordered By: Obie Hylton on 08-11-2024 Specific gravity (U) [Rel density] Specific gravity of Urine by Test strip 1.001-1.03 0 [facility] Total hemolytic complement C H50 assayOrdered By: Obie Hylton on 08-11-2024 Total Complement (CH50) 54 U/mL >41 [facility] Comment on above: Age Male Female 1 [...] to determine out of range values.Performed at: [employer] Director: Usman Draper PhD, Phone: [phone] Urea nitrogen [Mass/volume] in Serum or PlasmaOrdered By: Obie Hylton on 08-11-2024 Urea nitrogen [Mass/Vol] Urea nitrogen [Mass/volume] in Serum or Plasma High 7-25 [facility] Urobilinogen Test strip (U) [Mass/Vol]Ordered By: Obie Hylton on 08-11-2024 Urobilinogen (U) [Mass/Vol] Urobilinogen [Mass/volume] in Urine by Test strip High Normal [facility] WBC Auto (Bld) [#/Vol]Ordere d By: Obie Hylton on 08-11-2024 WBC (Bld) [#/Vol] Leukocytes [#/volume ] in Blood by Automated count 3.8-11.6 [facility] pH Test strip (U)Ordered By: Obie Hylton on 08-11-2024 pH (U) pH of Urine by Test strip 5.0-9.0 [facility] XR Ankle - right 3 Viewson 0 1-10-2025 1. No acute bone abnormality or significant degenerative joint disease. [facility] Bello Henry MD - 07/10/2024 PROCEDURE: XR ANKLE RIGHT (MIN 3 VIEWS) HISTORY: ankle pain COMPARISON: None. FINDINGS: BONES:No acute fracture, dislocation, or joint space narrowing. Small corticated ossifications adjacent the tip of the medial and lateral malleolar line compatible with sequela of remote injury. Large degenerative calcaneal plantar spur. SOFT TISSUES:No visible soft tissue swelling. EFFUSION:None visible. OTHER: Negative. IMPRESSION: 1. No acute bone abnormality or significant degenerative joint disease. [facility] Radiology Study observation (narrative) [facility] XR Ankle - right 3 ViewsOrde red By: Bello Leal on 07-10-2024 [facility] COVID-19, Rapidon 06-24-2024 Interpretation and review of laboratory results Abnormal [facility] SARS-CoV-2 (COVID-19) RdRp gene JUAQUIN+probe Ql (Resp) Detected Abnormal Not Detected [facility] Comment on above: Rapid NAAT: The specimen is POSITIVE for SARS-Cov-2, the novel coronavirus associated with COVID-19. The ID NOW COVID-19 assay is designed to detect the virus that causes COVID-19 in patients with signs and symptoms of infection who are suspected of COVID-19. An individual without symptoms of COVID-19 and who is not shedding SARS-CoV-2 virus would expect to have a negative (not detected) result in this assay. Methodology: Isothermal Nucleic Acid Amplification Results reported to the appropriate Health Department Specimen Description .NASOPHARYNGEAL SWAB [facility] Flu A/B Ag Detectionon 06-24 Flu A Ag Detection Negative Normal NEG [facility] Comment on above: Result Comment: for Influenza A Antigen Performed By: #### F LUABA #### [facility] [address] [facility] [place] [address] Master Fire Control Technician: Christian Muir MD Flu B Ag Detection Negative Normal NEG [facility] Comment on above: Result Comment: for Influenza B Antigen. Performed By: #### F LUABA #### [facility] [address] [place] [address] Master Fire Control Technician: Christian Muir MD Rapid Strep Screenon 024 Specimen source Nom (Unsp spec) .THROAT SWAB [facility] Strep A, Molecular Negative NEGATIVE [facility] Rapid influenza A/B antigens on 06-24-2024 FLUAV Ag Ql (Unsp spec) Negative NEGATIVE [facility] Comment on above: for Influenza A Anti gen FLUBV Ag Ql (Unsp spec) Negative NEGATIVE [facility] Comment on above: for Influenza B Anti gen. [facility] [id number] 06-24-2024 SARS-CoV-2 (COVID-19) RNA JUAQUIN+probe Ql (Unsp spec) Detected Abnormal [facility] Comment on above: Result Comment: Rapid NAAT: The specimen is POSITIVE for SARS-Cov-2, the novel coronavirus associated with COVID-19. The ID NOW COVID-19 assay is designed to detect the virus that causes COVID-19 in patients with signs and symptoms of infection who are suspected of COVID-19. An individual without symptoms of COVID-19 and who is not shedding SARS-CoV-2 virus would expect to have a negative (not detected) result in this assay. Methodology: Isothermal Nucleic Acid Amplification Results reported to the appropriate Health Department Performed By: #### C OVRB #### [facility] [address] [place] [address] Master Fire Control Technician: Christian Muir MD Strep Group A, Rapidon 06-24 Strep A, Molecular Negative Normal NEG [facility] Comment on above: Performed By: #### C OVRB #### [facility] [address] [place] [address] Master Fire Control Technician: Christian Muir MD Source .THROAT SWAB Normal [facility] Comment on above: Performed By: #### C OVRB #### [facility] [address] [place] [address] Master Fire Control Technician: Christian Muir MD [facility] WU DIGITAL SCREEN ROLO Rivas 05-12-2024 ANA WU DIGITAL SCREEN BILATERAL HISTORY: Screening. Family history of breast carcinoma. TECHNIQUE: Bilateral digital screening mammogram with CAD. Digital breast tomosynthesis imaging. FINDINGS: Two views of each breast were obtained. The breasts are almost entirely fatty. BREAST DENSITY CODE: F: FATTY No significant change compared to prior studies, the most recent of 05/09/2023. Suspicious calcifications: None. Suspicious mass: None. (If skin markers were applied, circles represent skin lesions and linear markers represent scars.) ASSESSMENT: BIRADS: 1 Negative, no evidence of malignancy. A letter of notification will be sent to the patient regarding the results. Performing Facility: [place] [address] Interpreted by: Ishmael Valentin Jr., MD Signed by: Ishmael Valentin Jr., MD 05/12/24 Final result Normal [facility] Alanine aminotransferase [En zymatic activity/volume] in Serum or PlasmaOrdered By: Obie Hylton on 12-19-2023 ALT [Catalytic activity/Vol] 10 U/L Normal 7-52 [facility] Comment on above: Performed By: #### C 4, C3, CH50 #### [facility] , #### CBC, ESR, ADDONUAPLUS, CMP #### [address] Albumin [Mass/volume] in Ser um or Plasma by Bromocresol green (BCG) dye binding methoOrdered By: Obie Hylton on 12-19-2023 Albumin BCG dye [Mass/Vol] 3.9 g/dL 3.5-5.7 [facility] Alkaline phosphatase [Enzyma tic activity/volume] in Serum or PlasmaOrdered By: Obie Hylton on 12-19-2023 ALP [Catalytic activity/Vol] 56 U/L Normal 34-104 [facility] Comment on above: Result Comment: PERF ORMED BY: [place] [address] PATHOLOGIST NIGHT WORKER MANUEL PABON M.D. Performed By: #### C 4, C3, CH50 #### [facility] , #### CBC, ESR, ADDONUAPLUS, CMP #### [address] Aspartate aminotransferase [ Enzymatic activity/volume] in Serum or PlasmaOrdered By: Obie Ramirezrow on 12-19-2023 AST [Catalytic activity/Vol] 13 U/L Normal 13-39 [facility] Comment on above: Performed By: #### C 4, C3, CH50 #### [facility] , #### CBC, ESR, ADDONUAPLUS, CMP #### [address] Automated basophil %Ordered By: Obie Warner on 12-19-2023 Basophils/100 WBC (Bld) 0.3 % Normal . [facility] Comment on above: Performed By: #### C 4, C3, CH50 #### [facility] , #### CBC, ESR, ADDONUAPLUS, CMP #### [address] Automated basophil countOrde red By: Obie Ramirezrow on 12-19-2023 Basophils (Bld) [#/Vol] 0.0 10*3/uL Normal 0.0-0.2 [facility] Comment on above: Performed By: #### C 4, C3, CH50 #### [facility] , #### CBC, ESR, ADDONUAPLUS, CMP #### [address] Automated blood monocyte cou ntOrdered By: Obie Warner on 12-19-2023 Monocytes (Bld) [#/Vol] 0.5 10*3/uL Normal 0.0-0.8 [facility] Comment on above: Performed By: #### C 4, C3, CH50 #### [facility] , #### CBC, ESR, ADDONUAPLUS, CMP #### [address] Automated eosinophil %Ordere d By: Obie Hylton on 12-19-2023 Eosinophils/100 WBC (Bld) 2.5 % Normal . [facility] Comment on above: Performed By: #### C 4, C3, CH50 #### [facility] , #### CBC, ESR, ADDONUAPLUS, CMP #### [address] Automated eosinophil countOr dered By: Obie Hylton on 12-19-2023 Eosinophils (Bld) [#/Vol] 0.1 10*3/uL Normal 0.0-0.45 [facility] Comment on above: Performed By: #### C 4, C3, CH50 #### [facility] , #### CBC, ESR, ADDONUAPLUS, CMP #### [address] Automated monocyte %Ordered By: Obie Ramirezrow on 12-19-2023 Monocytes/100 WBC (Bld) 9.2 % Normal . [facility] Comment on above: Performed By: #### C 4, C3, CH50 #### [facility] , #### CBC, ESR, ADDONUAPLUS, CMP #### [address] Automated neutrophil %Ordere d By: Obie Ramirezrow on 12-19-2023 Neutrophils/100 WBC (Bld) 70.1 % Normal . [facility] Comment on above: Performed By: #### C 4, C3, CH50 #### [facility] , #### CBC, ESR, ADDONUAPLUS, CMP #### [address] Bacteria [Presence] in Urine sediment by Light microscopyOrdered By: Obie Ramirezrow on 12-19-2023 Bacteria LM Ql (Urine sed) Rare [HPF] High None Seen [facility] Bilirubin Test strip Ql (U)O rdered By: Obie Hylton on 12-19-2023 Bilirubin Ql (U) Negative Negative [facility] Bilirubin.total [Mass/volume ] in Serum or PlasmaOrdered By: Obie Hylton on 12-19-2023 Bilirubin [Mass/Vol] 0.4 mg/dL Normal 0.3-1.0 [facility] Comment on above: Performed By: #### C 4, C3, CH50 #### [facility] , #### CBC, ESR, ADDONUAPLUS, CMP #### [facility] [address] [place] [address] [place] Calcium [Mass/volume] in Ser um or PlasmaOrdered By: Obie Hylton on 12-19-2023 Calcium [Mass/Vol] 9.1 mg/dL Normal 8.6-10.3 [facility] Comment on above: Performed By: #### C 4, C3, CH50 #### [facility] , #### CBC, ESR, ADDONUAPLUS, CMP #### [facility] [address] [place] [address] [place] Carbon dioxide, total [Moles /volume] in Serum or PlasmaOrdered By: Obie Hylton on 12-19-2023 CO2 [Moles/Vol] 27.0 mmol/L Normal 21.0-31.0 [facility] Comment on above: Performed By: #### C 4, C3, CH50 #### [facility] , #### CBC, ESR, ADDONUAPLUS, CMP #### [facility] [address] [place] [address] [place] Chloride [Moles/volume] in S liat or PlasmaOrdered By: Obie Ramirezrow on 12-19-2023 Chloride [Moles/Vol] 107 mmol/L Normal 98-107 [facility] Comment on above: Performed By: #### C 4, C3, CH50 #### [facility] , #### CBC, ESR, ADDONUAPLUS, CMP #### [address] Color of Urine by AutoOrdere d By: Obie Hylton on 12-19-2023 Color (U) Light-yellow Normal Yellow [facility] Comment on above: Order Comment: Name Collection Type:: Clean-Voided Midstream Performed By: #### C 4, C3, CH50 #### [facility] , #### CBC, ESR, ADDONUAPLUS, CMP #### [address] Complement C3on 12-19-2023 Complement C3 120 mg/dL Normal 82-167 [facility] Comment on above: Result Comment: Perf ormed at: [facility] [id number] Master Fire Control Technician: Usman Draper PhD, Phone: [phone] Performed By: #### C 4, C3, CH50 #### [facility] , #### CBC, ESR, ADDONUAPLUS, CMP #### [address] Complement C4on 12-19-2023 Complement C4 22 mg/dL Normal 12-38 [facility] Comment on above: Result Comment: PERF ORMED BY: [place] [address] PATHOLOGIST NIGHT WORKER MANUEL PABON M.D. Performed By: #### C 4, C3, CH50 #### [facility] , #### CBC, ESR, ADDONUAPLUS, CMP #### [address] Complement Total (CH50)on Complement Total (CH50) 57 Normal >41 [facility] Comment on above: Result [...] out of range values. Performed at: - [facility] [id number] Master Fire Control Technician: Usman Draper PhD, Phone: [phone] PERFORMED BY: [place] [address] PATHOLOGIST NIGHT WORKER MANUEL PABON M.D. Performed By: #### C 4, C3, CH50 #### [facility] , #### CBC, ESR, ADDONUAPLUS, CMP #### [address] [address] Complete Blood Count Auto Di ffon 12-19-2023 Mean Corpuscular HGB Conc 33.8 g/dL Normal 32.0-35.0 [facility] Comment on above: Performed By: #### C 4, C3, CH50 #### [facility] , #### CBC, ESR, ADDONUAPLUS, CMP #### [address] NRBC% 0.2 /100{WBC} Normal 0-0.5 [facility] Comment on above: Performed By: #### C 4, C3, CH50 #### [facility] , #### CBC, ESR, ADDONUAPLUS, CMP #### [address] Comprehensive Metabolic Pane trevor 12-19-2023 Albumin [Mass/Vol] 3.9 g/dL Normal 3.5-5.7 [facility] Comment on above: Performed By: #### C 4, C3, CH50 #### [facility] , #### CBC, ESR, ADDONUAPLUS, CMP #### [address] GFR/1.73 sq M.predicted MDRD (S/P/Bld) [Vol rate/Area] 47.958 mL/min/{1.73_m2} Normal [facility] Comment on above: Performed By: #### C 4, C3, CH50 #### [facility] , #### CBC, ESR, ADDONUAPLUS, CMP #### [address] Creatinine [Mass/volume] in Serum or PlasmaOrdered By: Obie Hylton on 12-19-2023 Creatinine [Mass/Vol] 1.16 mg/dL Normal 0.60-1.20 [facility] Comment on above: Performed By: #### C 4, C3, CH50 #### [facility] , #### CBC, ESR, ADDONUAPLUS, CMP #### [address] Dipstick and Microscopicon 0 12-19-2023 Bacteria,Urine Rare High None Seen [facility] Comment on above: Order Comment: Name Collection Type:: Clean-Voided Midstream Result Comment: PERF ORMED BY: [place] [address] PATHOLOGIST NIGHT WORKER MANUEL PABON M.D. Performed By: #### C 4, C3, CH50 #### [facility] , #### CBC, ESR, ADDONUAPLUS, CMP #### [address] Bilirubin,Urine Negative Normal Negative [facility] Comment on above: Order Comment: Name Collection Type:: Clean-Voided Midstream Performed By: #### C 4, C3, CH50 #### [facility] , #### CBC, ESR, ADDONUAPLUS, CMP #### [facility] [address] [place] [address] [place] Glucose Ql (U) Normal Normal Normal [facility] Comment on above: Order Comment: Name Collection Type:: Clean-Voided Midstream Performed By: #### C 4, C3, CH50 #### [facility] , #### CBC, ESR, ADDONUAPLUS, CMP #### [place] [address] [place] Nitrite,Urine Negative Normal Negative [facility] Comment on above: Order Comment: Name Collection Type:: Clean-Voided Midstream Performed By: #### C 4, C3, CH50 #### [facility] , #### CBC, ESR, ADDONUAPLUS, CMP #### [place] [address] [place] Occult Blood,Urine Negative Normal Negative [facility] Comment on above: Order Comment: Name Collection Type:: Clean-Voided Midstream Performed By: #### C 4, C3, CH50 #### [facility] , #### CBC, ESR, ADDONUAPLUS, CMP #### [place] [address] [place] Protein,Urine Negative Normal Negative [facility] Comment on above: Order Comment: Name Collection Type:: Clean-Voided Midstream Performed By: #### C 4, C3, CH50 #### [facility] , #### CBC, ESR, ADDONUAPLUS, CMP #### [place] [address] [place] RBC,Urine None Seen Normal 0-4 [facility] Comment on above: Order Comment: Name Collection Type:: Clean-Voided Midstream Performed By: #### C 4, C3, CH50 #### [facility] , #### CBC, ESR, ADDONUAPLUS, CMP #### [place] [address] [place] Specificy Milner,Urine 1.020 Normal 1.001-1.03 0 [facility] Comment on above: Order Comment: Name Collection Type:: Clean-Voided Midstream Performed By: #### C 4, C3, CH50 #### [facility] , #### CBC, ESR, ADDONUAPLUS, CMP #### [address] Squamous Epithelial Cell,Urine 0-1 Normal 0-2 [facility] Comment on above: Order Comment: Name Collection Type:: Clean-Voided Midstream Performed By: #### C 4, C3, CH50 #### [facility] , #### CBC, ESR, ADDONUAPLUS, CMP #### [address] Urobilinogen,Urine Normal Normal Normal [facility] Comment on above: Order Comment: Name Collection Type:: Clean-Voided Midstream Performed By: #### C 4, C3, CH50 #### [facility] , #### CBC, ESR, ADDONUAPLUS, CMP #### [address] WBC,Urine None Seen Normal 0-4 [facility] Comment on above: Order Comment: Name Collection Type:: Clean-Voided Midstream Performed By: #### C 4, C3, CH50 #### [facility] , #### CBC, ESR, ADDONUAPLUS, CMP #### [address] Epithelial cells.squamous [# /area] in Urine sediment by Microscopy high power fieldOrdered By: Obie Hyltno on 12-19-2023 Epithelial cells.squamous LM.HPF (Urine sed) [#/Area] 0-1 [HPF] 0-2 [facility] Erythrocyte Sedimentation Ra heather 12-19-2023 ESR (Bld) [Velocity] 12 mm/h Normal 0-29 [facility] Comment on above: Result Comment: PERF ORMED BY: [place] [address] PATHOLOGIST NIGHT WORKER MANUEL PABON M.D. Performed By: #### C 4, C3, CH50 #### [facility] , #### CBC, ESR, ADDONUAPLUS, CMP #### [address] Erythrocyte distribution wid th [Ratio] by Automated countOrdered By: Obie Hylton on 12-19-2023 Erythrocyte distribution width (RBC) [Ratio] 15.0 % Normal 11.9-15.3 [facility] Comment on above: Performed By: #### C 4, C3, CH50 #### [facility] , #### CBC, ESR, ADDONUAPLUS, CMP #### [address] Erythrocyte sedimentation ra te by Photometric methodOrdered By: Obie Hylton on 12-19-2023 ESR Photometric method (Bld) [Velocity] 12 mm/hr 0-29 [facility] Erythrocytes [#/area] in Uri ne sediment by Microscopy high power fieldOrdered By: Obie Hylton on 12-19-2023 RBC LM.HPF (Urine sed) [#/Area] None seen [HPF] 0-4 [facility] Erythrocytes [#/volume] in B lood by Automated countOrdered By: Obie Hylton on 12-19-2023 RBC (Bld) [#/Vol] 3.56 10*6/uL Low 3.60-5.00 [facility] Comment on above: Performed By: #### C 4, C3, CH50 #### [facility] , #### CBC, ESR, ADDONUAPLUS, CMP #### [facility] [address] [place] [address] Glucose [Mass/volume] in Ser um or PlasmaOrdered By: Obie Hylton on 12-19-2023 Glucose [Mass/Vol] 92 mg/dL Normal 70-100 [facility] Comment on above: ADA recommended refe rence rangeRandom Glucose Reference Range is dependent on time and content of last meal. Glucose of more than 200 mg/dL in a nonstressed, ambulatory subject supports the diagnosis of Diabetes Mellitus. Result Comment: [place] om Glucose Reference Range is dependent on time and content of last meal. Glucose of more than 200 mg/dL in a nonstressed, ambulatory subject supports the diagnosis of Diabetes Mellitus. ADA recommended reference range Performed By: #### C 4, C3, CH50 #### [facility] , #### CBC, ESR, ADDONUAPLUS, CMP #### [address] Glucose [Mass/volume] in Uri ne by Test stripOrdered By: Obie Ramirezrow on 12-19-2023 Glucose Test strip (U) [Mass/Vol] Normal mg/dL Normal [facility] Hematocrit [Volume Fraction] of Blood by Automated countOrdered By: Obie Ramirezrow on 12-19-2023 Hematocrit (Bld) [Volume fraction] 33.2 % Low 34.0-46.4 [facility] Comment on above: Performed By: #### C 4, C3, CH50 #### [facility] , #### CBC, ESR, ADDONUAPLUS, CMP #### [address] Hemoglobin Test strip Ql (U) Ordered By: Obie Ramirezrow on 12-19-2023 Hemoglobin Ql (U) Negative Negative [facility] Hemoglobin [Mass/volume] in BloodOrdered By: Obie Ramirezrow on 12-19-2023 Hemoglobin (Bld) [Mass/Vol] 11.2 g/dL Low 11.8-15.4 [facility] Comment on above: Performed By: #### C 4, C3, CH50 #### [facility] , #### CBC, ESR, ADDONUAPLUS, CMP #### [address] Ketones [Presence] in Urine by Test stripOrdered By: Obie Ramirezrow on 12-19-2023 Ketones Ql (U) Negative Normal Negative [facility] Comment on above: Order Comment: Name Collection Type:: Clean-Voided Midstream Performed By: #### C 4, C3, CH50 #### [facility] , #### CBC, ESR, ADDONUAPLUS, CMP #### [address] Leukocyte esterase [Presence ] in Urine by Test stripOrdered By: Obie Hylton on 12-19-2023 Leukocyte esterase Test strip Ql (U) Negative Normal Negative [facility] Comment on above: Order Comment: Name Collection Type:: Clean-Voided Midstream Performed By: #### C 4, C3, CH50 #### [facility] , #### CBC, ESR, ADDONUAPLUS, CMP #### [address] Leukocytes [#/area] in Urine sediment by Microscopy high power fieldOrdered By: Obie Hylton on 12-19-2023 WBC LM.HPF (Urine sed) [#/Area] None seen [HPF] 0-4 [facility] Leukocytes [#/volume] correc pepito for nucleated erythrocytes in Blood by Automated counOrdered By: Obie Hylton on 12-19-2023 WBC corrected for nucl RBC Auto (Bld) [#/Vol] 5.9 10*3/uL 3.8-11.6 [facility] Leukocytes [#/volume] in Blo od by Automated countOrdered By: Obie Hylton on 12-19-2023 WBC (Bld) [#/Vol] 5.9 10*3/uL Normal 3.8-11.6 [facility] Comment on above: Performed By: #### C 4, C3, CH50 #### [facility] , #### CBC, ESR, ADDONUAPLUS, CMP #### [facility] [address] [place] [address] [place] Lymphocytes [#/volume] in Bl ood by Automated countOrdered By: Obie Hylton on 12-19-2023 Lymphocytes (Bld) [#/Vol] 1.1 10*3/uL Normal 1.00-4.8 [facility] Comment on above: Performed By: #### C 4, C3, CH50 #### [facility] , #### CBC, ESR, ADDONUAPLUS, CMP #### [facility] [address] [place] [address] Lymphocytes/100 leukocytes i n Blood by Automated countOrdered By: Obie Hylton on 12-19-2023 Lymphocytes/100 WBC (Bld) 17.9 % Normal . [facility] Comment on above: Performed By: #### C 4, C3, CH50 #### [facility] , #### CBC, ESR, ADDONUAPLUS, CMP #### [address] MCH [Entitic mass] by Automa pepito countOrdered By: Obie Hylton on 12-19-2023 MCH (RBC) [Entitic mass] 31.5 pg Normal 24.7-34.3 [facility] Comment on above: Performed By: #### C 4, C3, CH50 #### [facility] , #### CBC, ESR, ADDONUAPLUS, CMP #### [address] MCHC Auto (RBC) [Mass/Vol]Or dered By: Obie Hylton on 12-19-2023 MCHC (RBC) [Mass/Vol] 33.8 g/dL 32.0-35.0 [facility] MCV [Entitic volume] by Auto mated countOrdered By: Obie Hylton on 12-19-2023 MCV (RBC) [Entitic vol] 93.2 fL Normal 80-100 [facility] Comment on above: Performed By: #### C 4, C3, CH50 #### [facility] , #### CBC, ESR, ADDONUAPLUS, CMP #### [address] Neutrophils [#/volume] in Bl ood by Automated countOrdered By: Obie Ramirezrow on 12-19-2023 Neutrophils (Bld) [#/Vol] 4.1 10*3/uL Normal 1.8-7.7 [facility] Comment on above: Performed By: #### C 4, C3, CH50 #### [facility] , #### CBC, ESR, ADDONUAPLUS, CMP #### [facility] [address] Nitrite Test strip Ql (U)Ord ered By: Obie Ramirezrow on 12-19-2023 Nitrite Ql (U) Negative Negative [facility] No Panel InformationOrdered By: Obie Ramirezrow on 12-19-2023 Estimated GFR (CKD-EPI) 47.958 mL/Min [facility] Creatinine Clearance (Chem N/A [facility] Total Complement (CH50) 57 U/mL >41 [facility] Comment on above: Age Male Female 1 [...] to determine out of range values.Performed at: [facility] [address] Director: Usman Draper PhD, Phone: [phone] Nucleated erythrocytes [Pres ence] in Blood by Automated countOrdered By: Obie Hylton on 12-19-2023 Nucleated RBC Auto Ql (Bld) 0.2 /100{WBC} 0-0.5 [facility] Platelet mean volume [Entiti c volume] in Blood by Automated countOrdered By: Obie Hylton on 12-19-2023 Platelet mean volume (Bld) [Entitic vol] 8.7 fL Normal 6.3-10.7 [facility] Comment on above: Performed By: #### C 4, C3, CH50 #### [facility] , #### CBC, ESR, ADDONUAPLUS, CMP #### [facility] [address] Platelets [#/volume] in Bloo d by Automated countOrdered By: Obie Hylton on 12-19-2023 Platelets (Bld) [#/Vol] 201 10*3/uL Normal 150-450 [facility] Comment on above: Performed By: #### C 4, C3, CH50 #### [facility] , #### CBC, ESR, ADDONUAPLUS, CMP #### [facility] [address] [place] [address] Potassium [Moles/volume] in Serum or PlasmaOrdered By: Obie Hylton on 12-19-2023 Potassium [Moles/Vol] 4.3 mmol/L Normal 3.5-5.1 [facility] Comment on above: Performed By: #### C 4, C3, CH50 #### [facility] , #### CBC, ESR, ADDONUAPLUS, CMP #### [facility] [address] [place] [address] Protein Test strip (U) [Mass /Vol]Ordered By: Obie Hylton on 12-19-2023 Protein (U) [Mass/Vol] Negative Negative [facility] Protein [Mass/volume] in Ser um or PlasmaOrdered By: Obie Hylton on 12-19-2023 Protein [Mass/Vol] 5.9 g/dL Low 6.4-8.9 [facility] Comment on above: Performed By: #### C 4, C3, CH50 #### [facility] , #### CBC, ESR, ADDONUAPLUS, CMP #### [address] Serum globulin measurement b y calculation (mass/volume)Ordered By: Obie Hylton on 12-19-2023 Globulin (S) [Mass/Vol] 2.0 g/dL [facility] Comment on above: Performed By: #### C 4, C3, CH50 #### [facility] , #### CBC, ESR, ADDONUAPLUS, CMP #### [facility] [address] [place] [address] Serum or plasma albumin/glob ulin mass ratioOrdered By: Obie Hylton on 12-19-2023 Albumin/Globulin [Mass ratio] 2.0 {ratio} [facility] Comment on above: Performed By: #### C 4, C3, CH50 #### [facility] , #### CBC, ESR, ADDONUAPLUS, CMP #### [address] Serum or plasma anion gap de terminationOrdered By: Obie Hylton on 12-19-2023 Anion gap [Moles/Vol] 9.3 mmol/L Normal 6.0-15.0 [facility] Comment on above: Performed By: #### C 4, C3, CH50 #### [facility] , #### CBC, ESR, ADDONUAPLUS, CMP #### [address] Serum or plasma complement C 3 measurement (mass/volume)Ordered By: Obie Hylton on 12-19-2023 Complement C3 [Mass/Vol] 120 mg/dL 82-167 [facility] Comment on above: Performed at: [address] Director: Usman Draper PhD, Phone: [phone] Serum or plasma complement C 4 measurement (mass/volume)Ordered By: Obie Hylton on 12-19-2023 Complement C4 [Mass/Vol] 22 mg/dL 12-38 [facility] Sodium [Moles/volume] in Ser um or PlasmaOrdered By: Obie Hylton on 12-19-2023 Sodium [Moles/Vol] 139 mmol/L Normal 136-145 [facility] Comment on above: Performed By: #### C 4, C3, CH50 #### [facility] , #### CBC, ESR, ADDONUAPLUS, CMP #### [facility] [address] [place] [address] Specific gravity Test strip (U) [Rel density]Ordered By: Obie Hylton on 12-19-2023 Specific gravity (U) [Rel density] 1.020 1.001-1.03 0 [facility] Urea nitrogen [Mass/volume] in Serum or PlasmaOrdered By: Obieradha Hylton on 12-19-2023 Urea nitrogen [Mass/Vol] 33 mg/dL High 7-25 [facility] Comment on above: Performed By: #### C 4, C3, CH50 #### [facility] , #### CBC, ESR, ADDONUAPLUS, CMP #### [facility] [address] [place] [address] Urine appearanceOrdered By: Obieradha Hylton on 12-19-2023 Appearance (U) Clear Normal Clear [facility] Comment on above: Order Comment: Name Collection Type:: Clean-Voided Midstream Performed By: #### C 4, C3, CH50 #### [facility] , #### CBC, ESR, ADDONUAPLUS, CMP #### [address] Urobilinogen Test strip (U) [Mass/Vol]Ordered By: Obie Hylton on 12-19-2023 Urobilinogen (U) [Mass/Vol] Normal mg/dL Normal [facility] pH of Urine by Test stripOrd ered By: Obie Hylton on 12-19-2023 pH (U) 5.5 [pH] Normal 5.0-9.0 [facility] Comment on above: Order Comment: Name Collection Type:: Clean-Voided Midstream Performed By: #### C 4, C3, CH50 #### [facility] , #### CBC, ESR, ADDONUAPLUS, CMP #### [address] Basic Metabolic Profon 12-11 Anion gap [Moles/Vol] 11 mmol/L Normal - [facility] Comment on above: Performed By: #### B MP #### [facility] [address] [place] [address] Master Fire Control Technician: Christian Muir MD BUN/CRE Ratio 19 Normal 03-20 [facility] Comment on above: Performed By: #### B MP #### [facility] [address] [place], [place] [id number] Master Fire Control Technician: Christian Muir MD Calcium [Mass/Vol] 9.1 mg/dL Normal 8.6-10.4 [facility] Comment on above: Performed By: #### B MP #### [facility] [address] [place], [place] [id number] Master Fire Control Technician: Christian Muir MD Chloride [Moles/Vol] 104 mmol/L Normal 98-107 [facility] Comment on above: Performed By: #### B MP #### [facility] [address] [place], [place] [id number] Master Fire Control Technician: Christian Muir MD CO2 [Moles/Vol] 22 mmol/L Normal 20-31 [facility] Comment on above: Performed By: #### B MP #### [facility] [address] [place], [place] [phone] Master Fire Control Technician: Christian Muir MD Creatinine [Mass/Vol] 1.3 mg/dL High 0.5-0.9 [facility] Comment on above: Performed By: #### B MP #### [facility] [address] [place], [place] [phone] Master Fire Control Technician: Christian Muir MD GFR/1.73 sq M.predicted among non-blacks MDRD (S/P/Bld) [Vol rate/Area] 42 mL/min/{1.73_m2} Low >60 [facility] Comment on above: Result Comment: These results [...] renal tubular secretion. Performed By: #### B MP #### [facility] [address] [place], [place] [id number] Master Fire Control Technician: Christian Muir MD Glucose [Mass/Vol] 88 mg/dL Normal 70-99 [facility] Comment on above: Performed By: #### B MP #### [facility] [address] [place], [place] [phone] Master Fire Control Technician: Christian Muir MD Potassium [Moles/Vol] 4.3 mmol/L Normal 3.7-5.3 [facility] Comment on above: Performed By: #### B MP #### [facility] [address] [place], [place] [phone] Master Fire Control Technician: Christian Muir MD Sodium [Moles/Vol] 137 mmol/L Normal 135-144 [facility] Comment on above: Performed By: #### B MP #### [facility] [address] [place], [place] [phone] Master Fire Control Technician: Christian Muir MD Urea nitrogen [Mass/Vol] 25 mg/dL High 8-23 [facility] Comment on above: Performed By: #### B MP #### [facility] [address] [place], [place] [phone] Master Fire Control Technician: Christian Muir MD Basic Metabolic Panelon 05-1 Anion gap [Moles/Vol] 13 mmol/L 9 - 17 mmol/L [facility] Calcium [Mass/Vol] 9.1 mg/dL 8.6 - 10. 4 mg/dL [facility] Chloride [Moles/Vol] 104 mmol/L 98 - 10 7 mmol/L [facility] CO2 [Moles/Vol] 20 mmol/L 20 - 31 mmol/L [facility] Creatinine [Mass/Vol] 1.1 mg/dL High 0.5 - 0.9 mg/dL [facility] Est, Glom Filt Rate 51 Low - [facility] Comment on above: These results [...] 153 mg/dL High 70 - 99 mg/dL [facility] Interpretation and review of laboratory results Abnormal [facility] Potassium [Moles/Vol] 3.3 mmol/L Low 3.7 - 5.3 mmol/L [facility] Sodium [Moles/Vol] 137 mmol/L 135 - 144 mmol/L [facility] Urea nitrogen [Mass/Vol] 26 mg/dL High 8 - 23 mg/dL [facility] Urea nitrogen/Creatinine [Mass ratio] 24 mg/mg High - [facility] Basic Metabolic Profon 11-13 Anion gap [Moles/Vol] 13 mmol/L Normal - [facility] Comment on above: Performed By: #### T DAVE, CBC, TROPI, BMP #### [facility] [address] [place] [address] Master Fire Control Technician: Christian Muir MD BUN/CRE Ratio 24 High - [facility] Comment on above: Performed By: #### T DAVE, CBC, TROPI, BMP #### [facility] [address] [place] [address] Master Fire Control Technician: Christian Muir MD Calcium [Mass/Vol] 9.1 mg/dL Normal 8.6-10.4 [facility] Comment on above: Performed By: #### T DAVE, CBC, TROPI, BMP #### [facility] [address] [place] [address] Master Fire Control Technician: Christian Muir MD Chloride [Moles/Vol] 104 mmol/L Normal 98-107 [facility] Comment on above: Performed By: #### T SH, CBC, TROPI, BMP #### [facility] [address] [place] [address] Master Fire Control Technician: Christian Muir MD CO2 [Moles/Vol] 20 mmol/L Normal 20-31 [facility] Comment on above: Performed By: #### T MICKEY ACOSTA TROPI, BMP #### [facility] [address] [place] [address] Master Fire Control Technician: Christian Muir MD Creatinine [Mass/Vol] 1.1 mg/dL High 0.5-0.9 [facility] Comment on above: Performed By: #### T MICKEY ACOSTA TROPPacheco, BMP #### [facility] [address] [place] [address] Master Fire Control Technician: Christian Muir MD GFR/1.73 sq M.predicted among non-blacks MDRD (S/P/Bld) [Vol rate/Area] 51 mL/min/{1.73_m2} Low >60 [facility] Comment on above: Result Comment: These results [...] renal tubular secretion. Performed By: #### T MICKEY ACOSTA TROPI, BMP #### [facility] [address] [place] [address] Master Fire Control Technician: Christian Muir MD Glucose [Mass/Vol] 153 mg/dL High 70-99 [facility] Comment on above: Performed By: #### T MICKEY ACOSTA TROPI, BMP #### [facility] [address] [place] [address] Master Fire Control Technician: Christian Muir MD Potassium [Moles/Vol] 3.3 mmol/L Low 3.7-5.3 [facility] Comment on above: Performed By: #### T MICKEY ACOSTA, TROPI, BMP #### [facility] [address] [place] [address] Master Fire Control Technician: Christian Muir MD Sodium [Moles/Vol] 137 mmol/L Normal 135-144 [facility] Comment on above: Performed By: #### T SH, CBC, TROPI, BMP #### [facility] [address] [place] [address] Master Fire Control Technician: Christian Muir MD Urea nitrogen [Mass/Vol] 26 mg/dL High 8-23 [facility] Comment on above: Performed By: #### T SH, CBC, TROPI, BMP #### [facility] [address] [place] [address] Master Fire Control Technician: Christian Muir MD CBCon 11-14-2023 Erythrocyte distribution width (RBC) [Ratio] 14.7 % 12.1 - 15.2 % [facility] Hematocrit (Bld) [Volume fraction] 37.0 % 36.0 - 46.0 % [facility] Hemoglobin (Bld) [Mass/Vol] 12.2 g/dL 12.0 - 16.0 g/dL [facility] Interpretation and review of laboratory results Abnormal [facility] MCH (RBC) [Entitic mass] 31.1 pg 26.0 - 34.0 pg [facility] MCHC (RBC) [Mass/Vol] 33.0 g/dL 31.0 - 37.0 g/dL [facility] MCV (RBC) [Entitic vol] 94.4 fL 80.0 - 100.0 fL [facility] Platelet mean volume (Bld) [Entitic vol] 10.3 fL 6.0 - 12.0 fL [facility] Platelets (Bld) [#/Vol] 179 10*3/uL [facility] RBC (Bld) [#/Vol] 3.92 10*6/uL Low 4.00 - 5.20 m/uL [facility] WBC other (Bld) [#/Vol] 4.3 [facility] Erythrocyte distribution width (RBC) [Ratio] 14.7 % Normal 12.1-15.2 [facility] Comment on above: Performed By: #### T DAVE, CBC, TROPI, BMP #### [facility] [address] [place] [address] Master Fire Control Technician: Christian Muir MD Hematocrit (Bld) [Volume fraction] 37.0 % Normal 36.0-46.0 [facility] Comment on above: Performed By: #### T DAVE, CBC, TROPI, BMP #### [facility] [address] [place] [address] Master Fire Control Technician: Christian Muir MD Hemoglobin (Bld) [Mass/Vol] 12.2 g/dL Normal 12.0-16.0 [facility] Comment on above: Performed By: #### T DAVE, CBC, TROPI, BMP #### [facility] [address] [place] [address] Master Fire Control Technician: Christian Muir MD MCH (RBC) [Entitic mass] 31.1 pg Normal 26.0-34.0 [facility] Comment on above: Performed By: #### T DAVE, CBC, TROPI, BMP #### [facility] [address] [place] [address] Master Fire Control Technician: Christian Muir MD MCHC (RBC) [Mass/Vol] 33.0 g/dL Normal 31.0-37.0 [facility] Comment on above: Performed By: #### T DAVE, CBC, TROPI, BMP #### [facility] [address] [place] [address] Master Fire Control Technician: Christian Muir MD MCV (RBC) [Entitic vol] 94.4 fL Normal 80.0-100.0 [facility] Comment on above: Performed By: #### T DAVE, CBC, TROPI, BMP #### [facility] [address] [facility] [place] [address] Master Fire Control Technician: Christian Muir MD Platelet mean volume (Bld) [Entitic vol] 10.3 fL Normal 6.0-12.0 [facility] Comment on above: Performed By: #### T SH, CBC, TROPI, BMP #### [facility] [address] [facility] [address] Master Fire Control Technician: Christian Muir MD Platelets (Bld) [#/Vol] 179 10*3/uL Normal 140-450 [facility] Comment on above: Performed By: #### T DAVE, CBC, TROPI, BMP #### [facility] [address] [place] [address] Master Fire Control Technician: Christian Muir MD RBC (Bld) [#/Vol] 3.92 10*6/uL Low 4.00-5.20 [facility] Comment on above: Performed By: #### T SH, CBC, TROPI, BMP #### [facility] [address] [place] [id number] Master Fire Control Technician: Christian Muir MD WBC (Bld) [#/Vol] 4.3 10*3/uL Normal 3.5-11.0 [facility] Comment on above: Performed By: #### T SH, CBC, TROPI, BMP #### [facility] [address] [place] [id number] Master Fire Control Technician: Christian Muir MD No Panel Informationon 11-13 [facility] TSHon 11-14-2023 TSH Qn 1.80 m[IU]/L [facility] Thyroid Stim. Horm.on 2023 Thyroid Stim. Horm. 1.80 uIU/mL Normal 0.30-5.00 [facility] Comment on above: Performed By: #### T SH, CBC, TROPI, BMP #### [facility] [address] [place] [id number] Master Fire Control Technician: Christian Muir MD Troponinon 11-14-2023 Troponin I.cardiac High sensitivity method [Mass/Vol] 10 ng/L 0 - 14 ng/L [facility] Comment on above: High Sensitivity Tro ponin values cannot be compared with other Troponin methodologies. Troponin, High Sens 10 ng/L Normal 0-14 [facility] Comment on above: Result Comment: High Sensitivity Troponin values cannot be compared with other Troponin methodologies. Performed By: #### T SH, CBC, TROPI, BMP #### [facility] [address] [place] [address] Master Fire Control Technician: Christian Muir MD CBC with Auto Differentialon 10-23-2023 Absolute Bands 0.18 [facility] Bands 4 % 0 - 10 % [facility] Basophils (Bld) [#/Vol] [facility] Basophils/100 WBC (Bld) 0 - 2 % [facility] Eosinophils % 0 - 5 % [facility] Eosinophils (Bld) [#/Vol] [facility] Erythrocyte distribution width (RBC) [Ratio] 14.7 % 12.1 - 15.2 % [facility] Hematocrit (Bld) [Volume fraction] 39.4 % 36.0 - 46.0 % [facility] Hemoglobin (Bld) [Mass/Vol] 12.9 g/dL 12.0 - 16.0 g/dL [facility] Immature granulocytes (Bld) [#/Vol] [facility] Immature granulocytes/100 WBC (Bld) 0 % [facility] Interpretation and review of laboratory results Abnormal [facility] Lymphocytes/100 WBC (Bld) 5 % Low 15 - 40 % [facility] Lymphocytes/100 WBC (Bld) 0.23 % Low [facility] MCH (RBC) [Entitic mass] 30.6 pg 26.0 - 34.0 pg [facility] MCHC (RBC) [Mass/Vol] 32.7 g/dL 31.0 - 37.0 g/dL [facility] MCV (RBC) [Entitic vol] 93.4 fL 80.0 - 100.0 fL [facility] Monocytes/100 WBC (Bld) 6 % 4 - 8 % [facility] Monocytes/100 WBC (Bld) 0.27 % [facility] Morphology Igor (Bld) [Interp] Platelet morphology normal. [facility] Morphology Igor (Bld) [Interp] RBC morphology normal. [facility] Morphology Igor (Bld) [Interp] Manual Differential Performed [facility] Neutrophils/100 WBC (Bld) 85 % High 47 - 75 % [facility] Platelet mean volume (Bld) [Entitic vol] 9.4 fL 6.0 - 12.0 fL [facility] Platelets (Bld) [#/Vol] 152 10*3/uL [facility] RBC (Bld) [#/Vol] 4.22 10*6/uL 4.00 - 5.20 m/uL [facility] Segmented neutrophils/100 WBC (Bld) 3.82 % [facility] WBC other (Bld) [#/Vol] 4.5 [facility] CBC with Diffon 10-23-2023 Abs. Bands 0.18 k/uL Normal 0.0-1.0 [facility] Comment on above: Performed By: #### C OVRB #### [facility] [address] [place] [address] Master Fire Control Technician: Christian Muir MD Abs. Basophil Normal 0.0-0.2 [facility] Comment on above: Performed By: #### C OVRB #### [facility] [address] [facility] [place] [address] Master Fire Control Technician: Christian Muir MD Abs. Eosinophil Normal 0.0-0.4 [facility] Comment on above: Performed By: #### C OVRB #### [facility] [address] [place] [address] Master Fire Control Technician: Christian Muir MD Abs.Imm.Granulocyte Normal 0.00-0.30 [facility] Comment on above: Performed By: #### C OVRB #### [facility] [address] [place], [place] [phone] Master Fire Control Technician: Christian Muir MD Abs.Neutrophil (Seg) 3.82 k/uL Normal 2.5-7.0 [facility] Comment on above: Performed By: #### C OVRB #### [facility] [address] [place], [place] [id number] Master Fire Control Technician: Christian Muir MD Bands 4 % Normal 0-10 [facility] Comment on above: Performed By: #### C OVRB #### [facility] [address] [place], [place] [id number] Master Fire Control Technician: Christian Muir MD Basophil Normal 0-2 [facility] Comment on above: Performed By: #### C OVRB #### [facility] [address] [place], [place] [id number] Master Fire Control Technician: Christian Muir MD Eosinophil Normal 0-5 [facility] Comment on above: Performed By: #### C OVRB #### [facility] [address] [place], [place] [phone] Master Fire Control Technician: Christian Muir MD Immature Granulocyte Normal 0 [facility] Comment on above: Performed By: #### C OVRB #### [facility] [address] [place] [address] Master Fire Control Technician: Christian Muir MD Lymphocytes (Bld) [#/Vol] 0.23 10*3/uL Low 1.0-4.8 [facility] Comment on above: Performed By: #### C OVRB #### [facility] [address] [place], [place] [phone] Master Fire Control Technician: Christian Muir MD Lymphocytes/100 WBC (Bld) 5 % Low 15-40 [facility] Comment on above: Performed By: #### C OVRB #### [facility] [address] [place], [place] [id number] Master Fire Control Technician: Christian Muir MD Monocytes (Bld) [#/Vol] 0.27 10*3/uL Normal 0.0-1.0 [facility] Comment on above: Performed By: #### C OVRB #### [facility] [address] [place], [place] [phone] Master Fire Control Technician: Christian Muir MD Monocytes/100 WBC (Bld) 6 % Normal 4-8 [facility] Comment on above: Performed By: #### C OVRB #### [facility] [address] [place], [place] [id number] Master Fire Control Technician: Christian Muir MD Morphology Igor (Bld) [Interp] Platelet morphology normal. Normal [facility] Comment on above: Result Comment: RBC morphology normal. Manual Differential Performed Performed By: #### C OVRB #### [facility] [address] [place] [address] Master Fire Control Technician: Christian Muir MD Neutrophil (Seg) 85 % High 47-75 [facility] Comment on above: Performed By: #### C OVRB #### [facility] [address] [place] [address] Master Fire Control Technician: Christian Muir MD Erythrocyte distribution width (RBC) [Ratio] 14.7 % Normal 12.1-15.2 [facility] Comment on above: Performed By: #### C OVRB #### [facility] [address] [place] [address] Master Fire Control Technician: Christian Muir MD Hematocrit (Bld) [Volume fraction] 39.4 % Normal 36.0-46.0 [facility] Comment on above: Performed By: #### C OVRB #### [facility] [address] [place] [address] Master Fire Control Technician: Christian Muir MD Hemoglobin (Bld) [Mass/Vol] 12.9 g/dL Normal 12.0-16.0 [facility] Comment on above: Performed By: #### C OVRB #### [facility] [address] [place], [place] [phone] Master Fire Control Technician: Christian Muir MD MCH (RBC) [Entitic mass] 30.6 pg Normal 26.0-34.0 [facility] Comment on above: Performed By: #### C OVRB #### [facility] [address] [place] [address] Master Fire Control Technician: Christian Muir MD MCHC (RBC) [Mass/Vol] 32.7 g/dL Normal 31.0-37.0 [facility] Comment on above: Performed By: #### C OVRB #### [facility] [address] [place] [address] Master Fire Control Technician: Christian Muir MD MCV (RBC) [Entitic vol] 93.4 fL Normal 80.0-100.0 [facility] Comment on above: Performed By: #### C OVRB #### [facility] [address] [place] [address] Master Fire Control Technician: Christian Muir MD Platelet mean volume (Bld) [Entitic vol] 9.4 fL Normal 6.0-12.0 [facility] Comment on above: Performed By: #### C OVRB #### [facility] [address] [place] [address] Master Fire Control Technician: Christian Muir MD Platelets (Bld) [#/Vol] 152 10*3/uL Normal 140-450 [facility] Comment on above: Performed By: #### C OVRB #### [facility] [address] [place] [address] Master Fire Control Technician: Christian Muir MD RBC (Bld) [#/Vol] 4.22 10*6/uL Normal 4.00-5.20 [facility] Comment on above: Performed By: #### C OVRB #### [facility] [address] [place], [place] [phone] Master Fire Control Technician: Christian Muir MD WBC (Bld) [#/Vol] 4.5 10*3/uL Normal 3.5-11.0 [facility] Comment on above: Performed By: #### C OVRB #### [facility] [address] [place], [place] [phone] Master Fire Control Technician: Christian Muir MD Comp Metabolic Profon 2023 Albumin [Mass/Vol] 3.9 g/dL Normal 3.5-5.2 [facility] Comment on above: Performed By: #### T CARLOS FRANCO, CP #### [facility] [address] [place], [place] [phone] Master Fire Control Technician: Christian Muir MD Alkaline Phos 49 U/L Normal 35-104 [facility] Comment on above: Performed By: #### CARLOS QUEVEDO, CP #### [facility] [address] [place], [place] [phone] Master Fire Control Technician: Christian Muir MD ALT [Catalytic activity/Vol] 12 U/L Normal 5-33 [facility] Comment on above: Performed By: #### CARLOS QUEVEDO, CP #### [facility] [address] [place], [place] [phone] Master Fire Control Technician: Christian Muir MD Anion gap [Moles/Vol] 15 mmol/L Normal 9-17 [facility] Comment on above: Performed By: #### CARLOS QUEVEDO, CP #### [facility] [address] [place], [place] [phone] Master Fire Control Technician: Christian Muir MD AST [Catalytic activity/Vol] 15 U/L Normal <32 [facility] Comment on above: Performed By: #### T CARLOS FRANCO, CP #### [facility] [address] [place], [place] [phone] Master Fire Control Technician: Christian Muir MD Bilirubin [Mass/Vol] 0.4 mg/dL Normal 0.3-1.2 [facility] Comment on above: Performed By: #### T CARLOS FRANCO, CP #### [facility] [address] [place] [phone] Master Fire Control Technician: Christian Muir MD BUN/CRE Ratio 29 High 9-20 [facility] Comment on above: Performed By: #### T CARLOS FRANCO, CP #### [facility] [address] [place] [address] Master Fire Control Technician: Christian Muir MD Calcium [Mass/Vol] 8.9 mg/dL Normal 8.6-10.4 [facility] Comment on above: Performed By: #### T CARLOS FRANCO, CP #### [facility] [address] [place] [address] Master Fire Control Technician: Christian Muir MD Chloride [Moles/Vol] 107 mmol/L Normal 98-107 [facility] Comment on above: Performed By: #### T CARLOS FRANCO, CP #### [facility] [address] [place] [address] Master Fire Control Technician: Christian Muir MD CO2 [Moles/Vol] 17 mmol/L Low 20-31 [facility] Comment on above: Performed By: #### T CARLOS FRANCO, CP #### [facility] [address] [place] [address] Master Fire Control Technician: Christian Muir MD Creatinine [Mass/Vol] 1.1 mg/dL High 0.5-0.9 [facility] Comment on above: Performed By: #### T CARLOS FRANCO, CP #### [facility] [address] [place], [place] [phone] Master Fire Control Technician: Christian Muir MD GFR/1.73 sq M.predicted among non-blacks MDRD (S/P/Bld) [Vol rate/Area] 51 mL/min/{1.73_m2} Low >60 [facility] Comment on above: Result Comment: These results [...] affects renal tubular secretion. Performed By: #### CARLOS QUEVEDO, CP #### [facility] [address] [place] [address] Master Fire Control Technician: Christian Muir MD Glucose [Mass/Vol] 136 mg/dL High 70-99 [facility] Comment on above: Performed By: #### CARLOS QUEVEDO CP #### [facility] [address] [place] [address] Master Fire Control Technician: Christian Muir MD Potassium [Moles/Vol] 3.6 mmol/L Low 3.7-5.3 [facility] Comment on above: Performed By: #### CARLOS QUEVEDO, CP #### [facility] [address] [place], [place] [phone] Master Fire Control Technician: Christian Muir MD Protein [Mass/Vol] 6.6 g/dL Normal 6.4-8.3 [facility] Comment on above: Performed By: #### CARLOS QUEVEDO, CP #### [facility] [address] [place] [address] Master Fire Control Technician: Christian Muir MD Sodium [Moles/Vol] 139 mmol/L Normal 135-144 [facility] Comment on above: Performed By: #### T CARLOS FRANCO, CP #### [facility] [address] [place] [address] Master Fire Control Technician: Christian Muir MD Urea nitrogen [Mass/Vol] 32 mg/dL High 8- [facility] Comment on above: Performed By: #### T CARLOS FRANCO, CP #### [facility] [address] [place] [address] Master Fire Control Technician: Christian Muir MD [facility] Metabolic Pane [facility] 10-23-2023 Albumin [Mass/Vol] 3.9 g/dL 3.5 - 5.2 g/dL [facility] ALP [Catalytic activity/Vol] 49 U/L 35 - 104 U/L [facility] ALT [Catalytic activity/Vol] 12 U/L 5 - 33 U/L [facility] Anion gap [Moles/Vol] 15 mmol/L 9 - 17 mmol/L [facility] AST [Catalytic activity/Vol] 15 U/L NINF - 32 U/L [facility] Bilirubin [Mass/Vol] 0.4 mg/dL 0.3 - 1 .2 mg/dL [facility] Calcium [Mass/Vol] 8.9 mg/dL 8.6 - 10. 4 mg/dL [facility] Chloride [Moles/Vol] 107 mmol/L 98 - 10 7 mmol/L [facility] CO2 [Moles/Vol] 17 mmol/L Low 20 - 31 mmol/L [facility] Creatinine [Mass/Vol] 1.1 mg/dL High 0.5 - 0.9 mg/dL [facility] GFR/1.73 sq M.predicted MDRD (S/P/Bld) [Vol rate/Area] 51 mL/min/{1.73_m2} Low - PINF [facility] Comment on above: These results [...] 136 mg/dL High 70 - 99 mg/dL [facility] Interpretation and review of laboratory results Abnormal [facility] Potassium [Moles/Vol] 3.6 mmol/L Low 3.7 - 5.3 mmol/L [facility] Protein [Mass/Vol] 6.6 g/dL 6.4 - 8.3 g/dL [facility] Sodium [Moles/Vol] 139 mmol/L 135 - 144 mmol/L [facility] Urea nitrogen [Mass/Vol] 32 mg/dL High 8 - 23 mg/dL [facility] Urea nitrogen/Creatinine [Mass ratio] 29 mg/mg High 9 - 20 [facility] Microscopic Urinalysison - [facility] Bacteria LM Ql (Urine sed) RARE Abnormal None [facility] Epithelial cells LM.HPF (Urine sed) [#/Area] 5 TO 10 /HPF [facility] Interpretation and review of laboratory results Abnormal [facility] RBC LM.HPF (Urine sed) [#/Area] 2 TO 5 [facility] WBC LM.HPF (Urine sed) [#/Area] NONE SEEN 0 /HPF [facility] Troponinon 10-23-2023 Interpretation and review of laboratory results Abnormal [facility] Troponin I.cardiac High sensitivity method [Mass/Vol] 19 ng/L High 0 - 14 ng/L [facility] Comment on above: High Sensitivity Tro ponin values cannot be compared with other Troponin methodologies. [facility] Troponin, High Sens 19 ng/L High 0-14 [facility] Comment on above: Result Comment: High Sensitivity Troponin values cannot be compared with other Troponin methodologies. Performed By: #### C OVRB #### [facility] [address] [place] [address] Master Fire Control Technician: Christian Muir MD Interpretation and review of laboratory results Abnormal [facility] Troponin I.cardiac High sensitivity method [Mass/Vol] 15 ng/L High 0 - 14 ng/L [facility] Comment on above: High Sensitivity Tro ponin values cannot be compared with other Troponin methodologies. [facility] Troponin, High Sens 15 ng/L High 0-14 [facility] Comment on above: Result Comment: High Sensitivity Troponin values cannot be compared with other Troponin methodologies. Performed By: #### C OVRB #### [facility] [address] [place] [address] Master Fire Control Technician: Christian Muir MD UA w/Reflex Cultureon 2023 Bilirubin, SemiQt,Ur Negative Normal NEG [facility] Comment on above: Performed By: #### F LUABA #### [facility] [address] [place] [address] Master Fire Control Technician: Christian Muir MD Blood, Urine 2+ Abnormal NEG [facility] Comment on above: Performed By: #### F LUABA #### [facility] [address] [place], [place] [phone] Master Fire Control Technician: Christian Muir MD Clarity (U) Clear Normal CLEAR [facility] Comment on above: Performed By: #### F LUABA #### [facility] [address] [place] [address] Master Fire Control Technician: Christian Muir MD Color (U) Yellow Normal YEL [facility] Comment on above: Performed By: #### F LUABA #### [facility] [address] [facility] [place] [phone] Master Fire Control Technician: Christian Muir MD Comment Normal [facility] Comment on above: Performed By: #### F LUABA #### [facility] [address] [place], [place] [phone] Master Fire Control Technician: Christian Muir MD Glucose Ql (U) Negative Normal NEG [facility] Comment on above: Performed By: #### F LUABA #### [facility] [address] [place] [address] Master Fire Control Technician: Christian Muir MD Ketones Ql (U) TRACE Abnormal NEG [facility] Comment on above: Performed By: #### F LUABA #### [facility] [address] [place], [place] [phone] Master Fire Control Technician: Christian Muir MD Leukocyte esterase Test strip Ql (U) Negative Normal NEG [facility] Comment on above: Performed By: #### F LUABA #### [facility] [address] [place], [place] [phone] Master Fire Control Technician: Christian Muir MD Nitrite,Ur Negative Normal NEG [facility] Comment on above: Performed By: #### F LUABA #### [facility] [address] [place] [phone] Master Fire Control Technician: Christian Muir MD PH,Ur 5.0 Normal 5.0-8.0 [facility] Comment on above: Performed By: #### F LUABA #### [facility] [address] [place], [place] [id number] Master Fire Control Technician: Christian Muir MD Protein Ql (U) 1+ mg/dL Abnormal NEG [facility] Comment on above: Performed By: #### F LUABA #### [facility] [address] [place] [address] Master Fire Control Technician: Christian Muir MD Spec. Milner,Ur 1.020 Normal 1.005-1.03 0 [facility] Comment on above: Performed By: #### F LUABA #### [facility] [address] [place], [place] [id number] Master Fire Control Technician: Christian Muir MD Urobilinogen,Ur Normal Normal 0.0-1.0 [facility] Comment on above: Performed By: #### F LUABA #### [facility] [address] [place] [address] Master Fire Control Technician: Christian Muir MD Urinalysis with Reflex to Cu ltureon 10-23-2023 Bilirubin Ql (U) Negative NEGATIVE [facility] Clarity (U) Clear Clear [facility] Color (U) Yellow Yellow [facility] Comment [facility] Glucose Test strip (U) [Mass/Vol] Negative NEGATIVE mg/dL [facility] Hemoglobin Auto test strip Ql (U) 2+ Abnormal NEGATIVE [facility] Interpretation and review of laboratory results Abnormal [facility] Ketones (U) [Mass/Vol] TRACE Abnormal NEGATIVE mg/dL [facility] Leukocyte esterase Test strip Ql (U) Negative NEGATIVE [facility] Nitrite Ql (U) Negative [facility] pH (U) 5.0 [pH] 5.0 - 8.0 [facility] Protein (U) [Mass/Vol] 1+ Abnormal NEGATIVE mg/dL [facility] Specific gravity (U) [Rel density] 1.020 1.005 - 1.030 [facility] Urobilinogen Qn (U) Normal 0.0 - 1. 0 EU/dL [facility] Urinalysis,Microon 4 ----- Normal [facility] Comment on above: Performed By: #### F LUABA #### [facility] [address] [place] [place] [address] Master Fire Control Technician: Christian Muir MD Bacteria RARE Abnormal NONE [facility] Comment on above: Performed By: #### F LUABA #### [facility] [address] [place] [address] Master Fire Control Technician: Christian Muir MD Epithelial cells LM Ql (Urine sed) 5 TO 10 Normal [facility] Comment on above: Performed By: #### F LUABA #### [facility] [address] [place] [address] Master Fire Control Technician: Christian Muir MD Urine RBC's 2 TO 5 Normal 0-2 [facility] Comment on above: Performed By: #### F LUABA #### [facility] [address] [place] [address] Master Fire Control Technician: Christian Muir MD Urine WBC's NONE SEEN Normal 0 [facility] Comment on above: Performed By: #### F LUABA #### [facility] [address] [place], [place] [address] Master Fire Control Technician: Christian Muir MD BUN + Creatinineon Creatinine [Mass/Vol] 1.2 mg/dL High 0.5-0.9 [facility] Comment on above: Performed By: #### B UNCRT #### [facility] [address] [place] [address] Master Fire Control Technician: Christian Muir MD GFR/1.73 sq M.predicted among non-blacks MDRD (S/P/Bld) [Vol rate/Area] 46 mL/min/{1.73_m2} Low >60 [facility] Comment on above: Result Comment: These results [...] secretion. Performed By: #### B UNCRT #### [facility] [address] [place] [address] Master Fire Control Technician: Christian Muir MD Urea nitrogen [Mass/Vol] 35 mg/dL High 02-20 [facility] Comment on above: Performed By: #### B UNCRT #### [facility] [address] [place] [address] Master Fire Control Technician: Christian Muir MD CT UROGRAMon 10-22-2023 CT UROGRAM [...] MD 10/22/23 Final result Normal [facility] Cult,Urineon 10-02-2023 Cult,Urine Specimen Description .CLEAN CATCH [...] SUSCEPTIBLE Trimethoprim/Sulfa <=20 SUSCEPTIBLE Susceptible [facility] Comment on above: Performed By: #### F ROYAL #### [facility] [address] [place] [address] Master Fire Control Technician: Christian Muir MD Urinalysis w/ Microon 2023 ----- Normal [facility] Comment on above: Performed By: #### U AMIC #### [facility] [address] [place], [place] [id number] Master Fire Control Technician: Christian Muir MD Bacteria 2+ Abnormal NONE [facility] Comment on above: Performed By: #### U AMIC #### [facility] [address] [place], [place] [id number] Master Fire Control Technician: Christian Muir MD Bilirubin, SemiQt,Ur Negative Normal NEG [facility] Comment on above: Performed By: #### U AMIC #### [facility] [address] [place] [address] Master Fire Control Technician: Christian Muir MD Blood, Urine 2+ Abnormal NEG [facility] Comment on above: Performed By: #### U AMIC #### [facility] [address] [place], [place] [id number] Master Fire Control Technician: Christian Muir MD Clarity (U) Cloudy Abnormal CLEAR [facility] Comment on above: Performed By: #### U AMIC #### [facility] [address] [place], [place] [id number] Master Fire Control Technician: Christian Muir MD Color (U) Yellow Normal YEL [facility] Comment on above: Performed By: #### U AMIC #### [facility] [address] [place], [place] [id number] Master Fire Control Technician: Christian Muir MD Comment Normal [facility] Comment on above: Performed By: #### U AMIC #### [facility] [address] [place], [place] [id number] Master Fire Control Technician: Christian Muir MD Epithelial cells LM Ql (Urine sed) 2 TO 5 Normal [facility] Comment on above: Performed By: #### U AMIC #### [facility] [address] [place], [place] [id number] Master Fire Control Technician: Christian Muir MD Glucose Ql (U) Negative Normal NEG [facility] Comment on above: Performed By: #### U AMIC #### [facility] [address] [place] [address] Master Fire Control Technician: Christian Muir MD Ketones Ql (U) Negative Normal NEG [facility] Comment on above: Performed By: #### U AMIC #### [facility] [address] [place] [address] Master Fire Control Technician: Christian Muir MD Leukocyte esterase Test strip Ql (U) 3+ Abnormal NEG [facility] Comment on above: Performed By: #### U AMIC #### [facility] [address] [place], [place] [id number] Master Fire Control Technician: Christian Muir MD Nitrite,Ur Negative Normal NEG [facility] Comment on above: Performed By: #### U AMIC #### [facility] [address] [place] [address] Master Fire Control Technician: Christian Muir MD PH,Ur 6.5 Normal 5.0-8.0 [facility] Comment on above: Performed By: #### U AMIC #### [facility] [address] [place] [address] Master Fire Control Technician: Christian Muir MD Protein Ql (U) TRACE Abnormal NEG [facility] Comment on above: Performed By: #### U AMIC #### [facility] [address] [place] [address] Master Fire Control Technician: Christian Muir MD Spec. [place],Ur 1.010 Normal 1.005-1.03 0 [facility] Comment on above: Performed By: #### U AMIC #### [facility] [address] [place], [place] [id number] Master Fire Control Technician: Christian Muir MD Urine RBC's 10 TO 20 Normal 0-2 [facility] Comment on above: Performed By: #### U AMIC #### [facility] [address] [place] [address] Master Fire Control Technician: Christian Muir MD Urine WBC's 20 TO 50 Normal 0 [facility] Comment on above: Performed By: #### U AMIC #### [facility] [address] [place] [address] Master Fire Control Technician: Christian Muir MD Urobilinogen,Ur Normal Normal 0.0-1.0 [facility] Comment on above: Performed By: #### U AMIC #### [facility] [address] [place] [address] Master Fire Control Technician: Christian Muir MD IntraOperative Documentson 0 09-23-2023 IntraOperative Documents [id number] Normal [facility] Result Letter Officeon 09-22 Result Letter Office (Inserted Image. Un able to display) September 23, 2023 MARY JANE RIOS [address] [place] [address] : 1945 Below is a summary of [...] if you wish to make an appointment. [facility] [phone] Normal [facility] Alanine aminotransferase [En zymatic activity/volume] in Serum or PlasmaOrdered By: Nuvia Sanchez on 09-19-2023 ALT [Catalytic activity/Vol] 12 U/L 7-52 [facility] Albumin [Mass/volume] in Ser um or Plasma by Bromocresol green (BCG) dye binding methoOrdered By: Nuvia Sanchez on 09-19-2023 Albumin BCG dye [Mass/Vol] 3.9 g/dL 3.5-5.7 [facility] Alkaline phosphatase [Enzyma tic activity/volume] in Serum or PlasmaOrdered By: Nuvia Sanchez on 09-19-2023 ALP [Catalytic activity/Vol] 59 U/L 34-104 [facility] Aspartate aminotransferase [ Enzymatic activity/volume] in Serum or PlasmaOrdered By: Nuvia Sanchez on 09-19-2023 AST [Catalytic activity/Vol] 13 U/L 13-39 [facility] Automated erythrocytes count in urine sediment (number/area)Ordered By: Nuvia Sanchez on 09-19-2023 RBC Auto (Urine sed) [#/Area] 0-1 [HPF] 0-4 [facility] Automated leukocytes count i n urine sediment (number/area)Ordered By: Nuvia Sanchez on 09-19-2023 WBC Auto (Urine sed) [#/Area] None seen [HPF] 0-4 [facility] Basophils Auto (Bld) [#/Vol] Ordered By: Nuvia Sanchez on 09-19-2023 Basophils (Bld) [#/Vol] 0.0 10*3/uL 0.0-0.2 [facility] Basophils/100 WBC Auto (Bld) Ordered By: Nuvia Sanchez on 09-19-2023 Basophils/100 WBC (Bld) 0.3 % . [facility] Bilirubin Test strip Ql (U)O rdered By: Nuvia Sanchez on 09-19-2023 Bilirubin Ql (U) Negative Negative [facility] Bilirubin.total [Mass/volume ] in Serum or PlasmaOrdered By: Nuvia Sanchez on 09-19-2023 Bilirubin [Mass/Vol] 0.2 mg/dL 0.3-1.0 [facility] Calcium [Mass/volume] in Ser um or PlasmaOrdered By: Nuvia Sanchez on 09-19-2023 Calcium [Mass/Vol] 8.6 mg/dL 8.6-10.3 [facility] Carbon dioxide, total [Moles /volume] in Serum or PlasmaOrdered By: Nuvia Sanchez on 09-19-2023 CO2 [Moles/Vol] 24.3 mmol/L 21.0-31.0 [facility] Chloride [Moles/volume] in S liat or PlasmaOrdered By: Nuvia Sanchez on 09-19-2023 Chloride [Moles/Vol] 107 mmol/L 98-107 [facility] Color Auto (U)Ordered By: Rajani Patel on 09-19-2023 Color (U) Yellow Yellow [facility] Creatinine [Mass/volume] in Serum or PlasmaOrdered By: Nuvia Sanchez on 09-19-2023 Creatinine [Mass/Vol] 1.35 mg/dL 0.60-1.20 [facility] Eosinophils Auto (Bld) [#/Vo l]Ordered By: Nuvia Sanchez on 09-19-2023 Eosinophils (Bld) [#/Vol] 0.1 10*3/uL 0.0-0.45 [facility] Eosinophils/100 WBC Auto (Bl d)Ordered By: Nuvia Sanchez on 09-19-2023 Eosinophils/100 WBC (Bld) 0.8 % . [facility] Erythrocyte distribution wid th Auto (RBC) [Ratio]Ordered By: Nuvia Sanchez on 09-19-2023 Erythrocyte distribution width (RBC) [Ratio] 15.2 % 11.9-15.3 [facility] Erythrocyte sedimentation ra te by Photometric methodOrdered By: Nuvia Sanchez on 09-19-2023 ESR Photometric method (Bld) [Velocity] 15 mm/hr 0-29 [facility] Globulin Calc (S) [Mass/Vol] Ordered By: Nuvia Sanchez on 09-19-2023 Globulin (S) [Mass/Vol] 2.2 g/dL [facility] Glucose [Mass/volume] in Ser um or PlasmaOrdered By: Nuvia Sanchez on 09-19-2023 Glucose [Mass/Vol] 84 mg/dL 70-100 [facility] Comment on above: ADA recommended refe rence rangeRandom Glucose Reference Range is dependent on time and content of last meal. Glucose of more than 200 mg/dL in a nonstressed, ambulatory subject supports the diagnosis of Diabetes Mellitus. Hematocrit Auto (Bld) [Volum e fraction]Ordered By: Nuvia Sanchez on 09-19-2023 Hematocrit (Bld) [Volume fraction] 34.5 % 34.0-46.4 [facility] Hemoglobin [Mass/volume] in BloodOrdered By: Nuvia Sanchez on 09-19-2023 Hemoglobin (Bld) [Mass/Vol] 11.4 g/dL 11.8-15.4 [facility] Ketones Auto test strip (U) [Mass/Vol]Ordered By: Nuvia Sanchez on 09-19-2023 Ketones (U) [Mass/Vol] Negative Negative [facility] Laboratory - UrinalysisOrder ed By: Nuvia Sanchez on 09-19-2023 Hyaline casts LM Ql (Urine sed) 0-8 [LPF] 0-8 [facility] Leukocytes [#/volume] correc pepito for nucleated erythrocytes in Blood by Automated counOrdered By: Nuvia Sanchez on 09-19-2023 WBC corrected for nucl RBC Auto (Bld) [#/Vol] 8.9 10*3/uL 3.8-11.6 [facility] Lymphocytes Auto (Bld) [#/Vo l]Ordered By: Nuvia Sanchez on 09-19-2023 Lymphocytes (Bld) [#/Vol] 1.6 10*3/uL 1.00-4.8 [facility] Lymphocytes/100 WBC Auto (Bl d)Ordered By: Nuvia Sanchez on 09-19-2023 Lymphocytes/100 WBC (Bld) 18.2 % . [facility] MCH Auto (RBC) [Entitic mass ]Ordered By: Nuvia Sanchez on 09-19-2023 MCH (RBC) [Entitic mass] 30.4 pg 24.7-34.3 [facility] MCHC Auto (RBC) [Mass/Vol]Or dered By: Nuvia Sanchez on 09-19-2023 MCHC (RBC) [Mass/Vol] 33.2 g/dL 32.0-35.0 [facility] MCV Auto (RBC) [Entitic vol] Ordered By: Nuvia Sanchez on 09-19-2023 MCV (RBC) [Entitic vol] 91.6 fL 80-100 [facility] Monocytes Auto (Bld) [#/Vol] Ordered By: Nuvia Sanchez on 09-19-2023 Monocytes (Bld) [#/Vol] 0.6 10*3/uL 0.0-0.8 [facility] Monocytes/100 WBC Auto (Bld) Ordered By: Nuvia Sanchez on 09-19-2023 Monocytes/100 WBC (Bld) 6.5 % . [facility] Neutrophils Auto (Bld) [#/Vo l]Ordered By: Nuvia Sanchez on 09-19-2023 Neutrophils (Bld) [#/Vol] 6.6 10*3/uL 1.8-7.7 [facility] Neutrophils/100 WBC Auto (Bl d)Ordered By: Nuvia Sanchez on 09-19-2023 Neutrophils/100 WBC (Bld) 74.2 % . [facility] Nitrite Test strip Ql (U)Ord ered By: Nuvia Sanchez on 09-19-2023 Nitrite Ql (U) Negative Negative [facility] No Panel InformationOrdered By: Nuvia Sanchez on 09-19-2023 Estimated GFR (CKD-EPI) 40.226 mL/Min [facility] Creatinine Clearance (Chem N/A [facility] Nucleated erythrocytes [Pres ence] in Blood by Automated countOrdered By: Nuvia Sanchez on 09-19-2023 Nucleated RBC Auto Ql (Bld) 0.1 /100{WBC} 0-0.5 [facility] Platelet mean volume Auto (B ld) [Entitic vol]Ordered By: Nuvia Sanchez on 09-19-2023 Platelet mean volume (Bld) [Entitic vol] 8.6 fL 6.3-10.7 [facility] Platelets Auto (Bld) [#/Vol] Ordered By: Nuvia Sanchez on 09-19-2023 Platelets (Bld) [#/Vol] 214 10*3/uL 150-450 [facility] Potassium [Moles/volume] in Serum or PlasmaOrdered By: Nuvia Sanchez on 09-19-2023 Potassium [Moles/Vol] 4.2 mmol/L 3.5-5.1 [facility] Protein Auto test strip (U) [Mass/Vol]Ordered By: Nuvia Sanchez on 09-19-2023 Protein (U) [Mass/Vol] Negative Negative [facility] Protein [Mass/volume] in Ser um or PlasmaOrdered By: Nuvia Sanchez on 09-19-2023 Protein [Mass/Vol] 6.1 g/dL 6.4-8.9 [facility] RBC Auto (Bld) [#/Vol]Ordere d By: Nuvia Sanchez on 09-19-2023 RBC (Bld) [#/Vol] 3.76 10*6/uL 3.60-5.00 [facility] Serum or plasma albumin/glob ulin mass ratioOrdered By: Nuvia Sanchez on 09-19-2023 Albumin/Globulin [Mass ratio] 1.8 {ratio} [facility] Serum or plasma anion gap de terminationOrdered By: Nuvia Sanchez on 09-19-2023 Anion gap [Moles/Vol] 9.9 mmol/L 6.0-15.0 [facility] Sodium [Moles/volume] in Ser um or PlasmaOrdered By: Nuvia Sanchez on 09-19-2023 Sodium [Moles/Vol] 137 mmol/L 136-145 [facility] Specific gravity Auto test s trip (U) [Rel density]Ordered By: Nuvia Sanchez on 09-19-2023 Specific gravity (U) [Rel density] 1.011 1.001-1.03 0 [facility] Squamous epithelial cells de tection in urine sediment by light microscopyOrdered By: Nuvia Sanchez on 09-19-2023 Epithelial cells.squamous LM Ql (Urine sed) None seen [HPF] 0-2 [facility] Urea nitrogen [Mass/volume] in Serum or PlasmaOrdered By: Nuvia Sanchez on 09-19-2023 Urea nitrogen [Mass/Vol] 32 mg/dL 7-25 [facility] Urine bacteria detection by automated methodOrdered By: Nuvia Sanchez on 09-19-2023 Bacteria Auto Ql (U) None seen None Seen [facility] Urine clarity by refractomet ry automatedOrdered By: Nuvia Sanchez on 09-19-2023 Clarity Refractometry automated (U) Clear Clear [facility] Urine glucose measurement by automated test strip (mass/volume)Ordered By: Nuvia Sanchez on 09-19-2023 Glucose Auto test strip (U) [Mass/Vol] Normal mg/dL Normal [facility] Urine hemoglobin detection b y automated test stripOrdered By: Nuvia Sanchez on 09-19-2023 Hemoglobin Auto test strip Ql (U) Negative Negative [facility] Urine leukocyte esterase det ection by automated test stripOrdered By: Nuvia Sanchez on 09-19-2023 Leukocyte esterase Auto test strip Ql (U) Negative Negative [facility] Urobilinogen Auto test strip (U) [Mass/Vol]Ordered By: Nuvia Sanchez on 09-19-2023 Urobilinogen (U) [Mass/Vol] Normal mg/dL Normal [facility] WBC Auto (Bld) [#/Vol]Ordere d By: Nuvia Sanchez on 09-19-2023 WBC (Bld) [#/Vol] 8.9 10*3/uL 3.8-11.6 [facility] pH Auto test strip (U)Ordere d By: Nuvia Sanchez on 09-19-2023 pH (U) 6.0 [pH] 5.0-9.0 [facility] Consenton 09-17-2023 Consent [id number] Normal [facility] Discharge Instructionson Discharge Instructions [id number] [facility] Main OR Intraoperative Recor don 09-17-2023 Main OR Intraoperative Record IntraOp Document Type FT Summary Primary Physician: Davion Olivares MD Finalized Date/Time: 09/17/23 08:19:33 Pt. Name: MARY JANE RIOS /Sex: 1945 Female Med Rec #: [id number] Physician: Davion Olivares MD Financial #: [id number] Pt. Type: O Room/Bed: / Admit/Disch: 09/16/23 [...] Beaver RN, Yong Fang Role Performed Anesthesiologist Flavoring Maker - Primary Scrub - Primary Sampler Ovens Time In 09/16/23 14:15:00 09/16/23 14:15:00 09/16/23 14:15:00 Time Out 09/16/23 14:42:00 09/16/23 14:42:00 09/16/23 14:42:00 Procedure COLONOSCOPY(.) COLONOSCOPY(.) COLONOSCOPY(.) Comments Dr. Delgado supervising case Last Modified By: Sd RN, Janell Beaver RN, Janell Beaver RN, Janell F 09/16/23 14:41:12 F 09/16/23 14:41:12 F 09/16/23 14:41:12 Entry 4 Entry 5 Case Attendee Alexa GUAN, Daisy Olivares MD, Davion Zarate Role Performed Staff - Other Surgeon - Primary Time In 09/16/23 14:15:00 09/16/23 14:15:00 Time Out 09/16/23 14:42:00 09/16/23 14:42:00 Procedure COLONOSCOPY(.) COLONOSCOPY(.) Comments help in room Last Modified By: aJnell Beaver RN, RN, Madaline F 09/16/23 14:41:12 [...] SARKAR, Georges Saez Micala E, Alexa GUAN, Daisy Carlson, Marshall STEINER, Davion Zarate Outcomes Met? Yes Last Modified [...] and tissue Entry 1 Skin Integrity Intact, [place], Warm, and Skin Abnormality No Dry Outcomes Met? Yes Last Modified By: Janell Beaver RN 09/16/23 14:23:55 Post-Care Text: The patient is free from signs and symptoms of injury caused by extraneous objects Patient Positioning FT Pre-Care Text: Identifies physical alterations that require additional precautions for procedure-specific positioning, verifies presence of prosthe (more content not included)... [facility] Postoperative Documentson Postoperative Documents [id number] [facility] Consent for Treatmenton 08-29 Consent for Treatment [id number] [facility] Discharge Instructionson Discharge Instructions MARY JANE RIOS Ora :1945 Visit Date:09/16/2023 Inpatient Discharge Instructions Your [...] tablet) fluticasone nasal (fluticasone 0.05 mg/inh Nasal [place]) levothyroxine (levothyroxine 50 mcg (0.05 mg) Tab) [...] office will call for follow up Where: [address] [place], [place] [address], [address] [address] [phone] Business (1) Medications What How Much When Instructions Next Dose Changed famotidine 20 Milligram By Mouth Once a day (at bedtime) Changed famotidine (famotidine 40 mg Tab) 1 Tablets By Mouth Once a day (at bedtime) Pickup at [facility][id number] Unchanged alprazolam 0.5 Milligram By Mouth At [...] fluticasone nasal (fluticasone 0.05 mg/ inh Nasal [place]) 50 Microgram Nasal Inhalation Every day Unchanged [...] Pharmacy Information (more content not included)... Normal [facility] Comment on above: Result Comment: Elec [...] Images Procedure images: [email or web address]_hd_video_ [id number].jpg [id number]_hd_video_ [id number].jpg [id number].jpg [id number]_hd_video_ [id number].jpg Rec1_hd_video_ [id number].jpg Rec1_hd_video_ [id number].jpg [...] hours. Education and Follow-up: Counseled: Patient, Family. [facility] Comment on above: Result Comment: Elec tronically Signed By: Marshall STEINER, Davion Zarate\.br\Date and Time Signed: 09/16/23 14:42 EDT Other Comment: Rachel ng Attachment - attachment storage system not supported [id number] Can be viewed in source system Missing Attachment - attachment storage system not supported [id number] Can be viewed in source system Missing Attachment - attachment storage system not supported [id number] Can be viewed in source system Missing Attachment - attachment storage system not supported [id number] Can be viewed in source system Missing Attachment - attachment storage system not supported [id number] Can be viewed in source system Missing Attachment - attachment storage system not supported [id number] Can be viewed in source system Missing Attachment - attachment storage system not supported [id number] Can be viewed in source system Missing Attachment - attachment storage system not supported [id number] Can be viewed in source system Missing Attachment - attachment storage system not supported [id number] Can be viewed in source system Missing Attachment - attachment storage system not supported [id number] Can be viewed in source system Missing Attachment - attachment storage system not supported [id number] Can be viewed in source system Missing Attachment - attachment storage system not supported [id number] Can be viewed in source system Gastroenterology [...] Historical Co (more content not included)... Normal [facility] Comment on above: Result Comment: Elec tronically Signed By: Daivon Olivares MD\.br\Date and Time Signed: 09/16/23 14:16 EDT Inpatient Patient Summaryon 09-16-2023 Inpatient Patient Summary [address] [address] [facility] Clinical Discharge Instructions PERSON INFORMATION Name: MARY JANE RIOS PHYSICIANS Admitting Physician: Davion Olivares MD Attending Physician: Davion Olivares MD PCP: RONI DAHL MD Discharge Diagnosis: Colon polyps Comment: PATIENT EDUCATION INFORMATION Instructions: Medication Leaflets: Follow up: MEDICATION LIST Medications to Continue Taking That Have Changed [id number], [address], [place] [id number], [phone] START: famotidine (famotidine 40 mg Tab) 1 [...] day. fluticasone nasal (fluticasone 0.05 mg/inh Nasal [place]) 50 Microgram Nasal Inhalation every day. levothyroxine [...] Milligram By Mouth every day. Comment: Normal [facility] Main OR PACU I Recordon 08-29 Main OR PACU I Record PACU Phase I Docum ent Type FT Summary Primary Physician: Davion Olivares MD Finalized Date/Time: 09/16/23 16:43:13 Pt. Name: MARY JANE RIOS/Sex: 1945 Female Med Rec #: [id number] Physician: Davion Olivares MD Financial #: [id number] Pt. Type: O Room/Bed: / Admit/Disch: 09/16/23 [...] By: Miley Zhou RN 09/16/23 16:43 Normal [facility] Main OR Preoperative Recordo n 09-16-2023 Main OR Preoperative Record Holding Area Document Type FT Summary Primary Physician: Davion Olivares MD Finalized Date/Time: 09/16/23 13:10:36 Pt. Name: MARY JANE RIOS /Sex: 1945 Female Med Rec #: [id number] Physician: Davion Olivares MD Financial #: [id number] Pt. Type: O Room/Bed: / Admit/Disch: 09/16/23 [...] By: Eliza Lyn RN 09/16/23 13:10 Normal [facility] Monitor Recordon 09-16-2023 Monitor Record [id number] Normal [facility] Monitor Record [id number] Normal [facility] Outpatient Surgery Discharge Instructionon 09-16-2023 Outpatient Surgery Discharge Instruction [address] [address] Patient Discharge Instructions PERSON INFORMATION Name: MARY [...] Monsivais You may receive a survey from [employer] asking you to rate your care experience. Your feedback is important and will help us understand what we do well and how we can improve the quality of care we provide to you, your loved ones and our community. It?s an honor to serve you. Thank you for choosing [facility] HERE ARE THE MEDICATION CHANGES THAT OCCURRED DURING YOUR HOSPITAL STAY Medications to Continue Taking That Have Changed [id number], [address], [place] [id number], [phone] START: famotidine (famotidine 40 mg Tab) 1 [...] day. fluticasone nasal (fluticasone 0.05 mg/inh Nasal [place]) 50 Microgram Nasal Inhalation every day. levothyroxine [...] day. PATIENT EDUCATION INFORMATION Instructions: Medication Leaflets: Normal [facility] Patient Education - Texton 0 09-16-2023 Patient Education - Text [facility] Progress Note-Physicianon Progress Note-Physician Patient: MARY JANE RIOS Age: 77 years Sex: Female : 1945 Associated Diagnoses: None Author: Danny Anesthesiology (DO)Obie Postoperative Information Postoperative disposition: Postoperative disposition: To [...] bedtime), # 90 tab(s), Refills(s) 6, Pharmacy: [id number], 162, cm, 09/16/23 10:47:00 EDT, Height/Length Dosing, [...] of stomach acid fluticasone 0.05 mg/inh Nasal [place]: 50 mcg, Nasal, Daily, Refill(s) 0, Allergy [...] day (at bedtime) fluticasone 0.05 mg/inh Nasal [place] 50 mcg, Nasal, Daily levothyroxine 50 mcg [...] All Problems Acid reflux / SNOMED CT 481763234 / Confirmed Anticoagulated / SNOMED CT 708497141 / Confirmed Asymptomatic microscopic hematuria / SNOMED CT 8681902561 / Confirmed Chronic back pain / SNOMED CT 796299920 / Confirmed Epigastric pain / SNOMED CT 350345299 / Confirmed H/O: arthritis / SNOMED CT 093241905 / Confirmed History of colon polyps / SNOMED CT 7519912167 / Confirmed Hypercholesterolemia / SNOMED CT 26389794 / Confirmed Hypothyroidism / SNOMED CT 19823223 / Confirmed Internal hemorrhoids / SNOMED CT 369215860 / Confirmed Intestinal metaplasia of stomach / SNOMED CT 379240884 / Confirmed Low vitamin B12 level / SNOMED CT 0780956710 / Confirmed Mixed incontinence / SNOMED CT 13567285 / Confirmed Mixed stress and urge urinary incontinence / SNOMED CT 6121648390 / Confirmed Nocturia / SNOMED CT 607045993 / Confirmed Obesity / ICD-9-CM 278.00 / Possible Shoulder strain / SNOMED CT 896317446 / Confirmed Sleep apnea / SNOMED CT 522007247 / Confirmed USES CPAP Stress incontinence / SNOMED CT 261661986 / Confirmed TMJ (temporomandibular joint disorder) / SNOMED CT 79356562 / Confirmed Urge incontinence / SNOMED CT 670265183 / Confirmed Weak urinary stream / SNOMED CT 389065388 / Confirmed Resolved: Constipation / SNOMED CT 43575839 Resolved: Diverticulosis / SNOMED CT 9268817318 Resolved: Frequency of urination / SNOMED CT 464458042 Resolved: Gastritis / SNOMED CT 1759861 Resolved: Hx of post-iza (more content not included)... Normal [facility] Comment on above: Result Comment: [...] of stomach acid fluticasone 0.05 mg/inh Nasal [place]: 50 mcg, Nasal, Daily, Refill(s) 0, Allergy [...] day (at bedtime) fluticasone 0.05 mg/inh Nasal [place] 50 mcg, Nasal, Daily levothyroxine 50 mcg [...] All Problems Acid reflux / SNOMED CT 115004512 / Confirmed Anticoagulated / SNOMED CT 475294822 / Confirmed Asymptomatic microscopic hematuria / SNOMED CT 2271393290 / Confirmed Chronic back pain / SNOMED CT 473469078 / Confirmed Epigastric pain / SNOMED CT 224776875 / Confirmed H/O: arthritis / SNOMED CT 019650360 / Confirmed History of colon polyps / SNOMED CT 1390642296 / Confirmed Hypercholesterolemia / SNOMED CT 10501808 / Confirmed Hypothyroidism / SNOMED CT 99148656 / Confirmed Internal hemorrhoids / SNOMED CT 213552551 / Confirmed Intestinal metaplasia of stomach / SNOMED CT 986072913 / Confirmed Low vitamin B12 level / SNOMED CT 0164866363 / Confirmed Mixed incontinence / SNOMED CT 39857087 / Confirmed Mixed stress and urge urinary incontinence / SNOMED CT 3088425111 / Confirmed Nocturia / SNOMED CT 671256240 / Confirmed Obesity / ICD-9-CM 278.00 / Possible Shoulder strain / SNOMED CT 182098051 / Confirmed Sleep apnea / SNOMED CT 868053572 / Confirmed USES CPAP Stress incontinence / SNOMED CT 057669823 / Confirmed TMJ (temporomandibular joint disorder) / SNOMED CT 78702713 / Confirmed Urge incontinence / SNOMED CT 531328572 / Confirmed (more content not included)... Normal [facility] Comment on above: Result Comment: Elec tronically Signed By: Danny Anesthesiology (), Obie Anne.br\Date and Time Signed: 09/16/23 13:35 EDT COVID-19, Rapidon 07-01-2023 Interpretation and review of laboratory results Abnormal [facility] SARS-CoV-2 (COVID-19) RdRp gene JUAQUIN+probe Ql (Resp) Detected Abnormal Not Detected [facility] Comment on above: Rapid NAAT: [...] this assay. Fact sheet for Healthcare Providers: https://www.fda.gov/media/719233/download Fact sheet for Patients: https://www.fda.gov/media/312857/download Methodology: Isothermal Nucleic Acid Amplification Results reported to the appropriate Health Department Specimen Description .NASOPHARYNGEAL SWAB [facility] Rapid influenza A/B antigens on 07-01-2023 FLUAV Ag Ql (Unsp spec) Negative NEGATIVE [facility] Comment on above: for Influenza A Anti gen FLUBV Ag Ql (Unsp spec) Negative NEGATIVE [facility] Comment on above: for Influenza B Anti gen. [facility] Alanine aminotransferase [En zymatic activity/volume] in Serum or PlasmaOrdered By: Obie Hylton on 05-27-2023 ALT [Catalytic activity/Vol] 9 U/L 7-52 [facility] Albumin [Mass/volume] in Ser um or Plasma by Bromocresol green (BCG) dye binding methoOrdered By: Obie Hylton on 05-27-2023 Albumin BCG dye [Mass/Vol] 3.9 g/dL 3.5-5.7 [facility] Alkaline phosphatase [Enzyma tic activity/volume] in Serum or PlasmaOrdered By: Obie Hylton on 05-27-2023 ALP [Catalytic activity/Vol] 51 U/L 34-104 [facility] Aspartate aminotransferase [ Enzymatic activity/volume] in Serum or PlasmaOrdered By: Obie Hylton on 05-27-2023 AST [Catalytic activity/Vol] 14 U/L 13-39 [facility] Automated erythrocytes count in urine sediment (number/area)Ordered By: Obie Hylton on 05-27-2023 RBC Auto (Urine sed) [#/Area] 0-1 [HPF] 0-4 [facility] Automated leukocytes count i n urine sediment (number/area)Ordered By: Obie Hylton on 05-27-2023 WBC Auto (Urine sed) [#/Area] 0-1 [HPF] 0-4 [facility] Basophils Auto (Bld) [#/Vol] Ordered By: Obie Hylton on 05-27-2023 Basophils (Bld) [#/Vol] 0.0 10*3/uL 0.0-0.2 [facility] Basophils/100 WBC Auto (Bld) Ordered By: Obie Hylton on 05-27-2023 Basophils/100 WBC (Bld) 0.4 % . [facility] Bilirubin Test strip Ql (U)O rdered By: Obie Hylton on 05-27-2023 Bilirubin Ql (U) Negative Negative [facility] Bilirubin.total [Mass/volume ] in Serum or PlasmaOrdered By: Obie Hylton on 05-27-2023 Bilirubin [Mass/Vol] 0.5 mg/dL 0.3-1.0 [facility] Calcium [Mass/volume] in Ser um or PlasmaOrdered By: Obie Hylton on 05-27-2023 Calcium [Mass/Vol] 8.9 mg/dL 8.6-10.3 [facility] Carbon dioxide, total [Moles /volume] in Serum or PlasmaOrdered By: Obie Hylton on 05-27-2023 CO2 [Moles/Vol] 27.0 mmol/L 21.0-31.0 [facility] Chloride [Moles/volume] in S liat or PlasmaOrdered By: Obie Hylton on 05-27-2023 Chloride [Moles/Vol] 112 mmol/L 98-107 [facility] Color Auto (U)Ordered By: Cindy Hylton on 05-27-2023 Color (U) Yellow Yellow [facility] Creatinine [Mass/volume] in Serum or PlasmaOrdered By: Obie Hylton on 05-27-2023 Creatinine [Mass/Vol] 1.20 mg/dL 0.60-1.20 [facility] Eosinophils Auto (Bld) [#/Vo l]Ordered By: Obie Hylton on 05-27-2023 Eosinophils (Bld) [#/Vol] 0.1 10*3/uL 0.0-0.45 [facility] Eosinophils/100 WBC Auto (Bl d)Ordered By: Obie Hylton on 05-27-2023 Eosinophils/100 WBC (Bld) 2.0 % . [facility] Erythrocyte distribution wid th Auto (RBC) [Ratio]Ordered By: Obie Hylton on 05-27-2023 Erythrocyte distribution width (RBC) [Ratio] 14.9 % 11.9-15.3 [facility] Erythrocyte sedimentation ra te by Photometric methodOrdered By: Obie Hylton on 05-27-2023 ESR Photometric method (d) [Velocity] 17 mm/hr 0-29 [facility] Globulin Calc (S) [Mass/Vol] Ordered By: Obie Hylton on 05-27-2023 Globulin (S) [Mass/Vol] 2.1 g/dL [facility] Glucose [Mass/volume] in Ser um or PlasmaOrdered By: Obie Hylton on 05-27-2023 Glucose [Mass/Vol] 91 mg/dL 70-100 [facility] Comment on above: ADA recommended refe rence rangeRandom Glucose Reference Range is dependent on time and content of last meal. Glucose of more than 200 mg/dL in a nonstressed, ambulatory subject supports the diagnosis of Diabetes Mellitus. Hematocrit Auto (Bld) [Volum e fraction]Ordered By: Obie Hylton on 05-27-2023 Hematocrit (Bld) [Volume fraction] 34.4 % 34.0-46.4 [facility] Hemoglobin [Mass/volume] in BloodOrdered By: Obie Hylton on 05-27-2023 Hemoglobin (Bld) [Mass/Vol] 11.7 g/dL 11.8-15.4 [facility] Ketones Auto test strip (U) [Mass/Vol]Ordered By: Obie Hylton on 05-27-2023 Ketones (U) [Mass/Vol] Negative Negative [facility] Laboratory - UrinalysisOrder ed By: Obie Hylton on 05-27-2023 Hyaline casts LM Ql (Urine sed) 0-8 [LPF] 0-8 [facility] Leukocytes [#/volume] correc pepito for nucleated erythrocytes in Blood by Automated counOrdered By: Obie Hylton on 05-27-2023 WBC corrected for nucl RBC Auto (Bld) [#/Vol] 3.9 10*3/uL 3.8-11.6 [facility] Lymphocytes Auto (Bld) [#/Vo l]Ordered By: Obie Hylton on 05-27-2023 Lymphocytes (Bld) [#/Vol] 1.1 10*3/uL 1.00-4.8 [facility] Lymphocytes/100 WBC Auto (Bl d)Ordered By: Obie Hylton on 05-27-2023 Lymphocytes/100 WBC (Bld) 27.3 % . [facility] MCH Auto (RBC) [Entitic mass ]Ordered By: Obie Hylton on 05-27-2023 MCH (RBC) [Entitic mass] 31.7 pg 24.7-34.3 [facility] MCHC Auto (RBC) [Mass/Vol]Or dered By: Obie Hylton on 05-27-2023 MCHC (RBC) [Mass/Vol] 33.9 g/dL 32.0-35.0 [facility] MCV Auto (RBC) [Entitic vol] Ordered By: Obie Hylton on 05-27-2023 MCV (RBC) [Entitic vol] 93.4 fL 80-100 [facility] Monocytes Auto (Bld) [#/Vol] Ordered By: Obie Hylton on 05-27-2023 Monocytes (Bld) [#/Vol] 0.3 10*3/uL 0.0-0.8 [facility] Monocytes/100 WBC Auto (Bld) Ordered By: Obie Hylton on 05-27-2023 Monocytes/100 WBC (Bld) 8.4 % . [facility] Neutrophils Auto (Bld) [#/Vo l]Ordered By: Obie Hylton on 05-27-2023 Neutrophils (Bld) [#/Vol] 2.4 10*3/uL 1.8-7.7 [facility] Neutrophils/100 WBC Auto (Bl d)Ordered By: Obie Hylton on 05-27-2023 Neutrophils/100 WBC (Bld) 61.9 % . [facility] Nitrite Test strip Ql (U)Ord ered By: Obie Hylton on 05-27-2023 Nitrite Ql (U) Negative Negative [facility] No Panel InformationOrdered By: Obie Hylton on 05-27-2023 Estimated GFR (CKD-EPI) 46.333 mL/Min [facility]acy Creatinine Clearance (Chem N/A [facility] Nucleated erythrocytes [Pres ence] in Blood by Automated countOrdered By: Obie Hylton on 05-27-2023 Nucleated RBC Auto Ql (Bld) 0.2 /100{WBC} 0-0.5 [facility] Platelet mean volume Auto (B ld) [Entitic vol]Ordered By: Obie Hylton on 05-27-2023 Platelet mean volume (Bld) [Entitic vol] 8.8 fL 6.3-10.7 [facility] Platelets Auto (Bld) [#/Vol] Ordered By: Obie Hylton on 05-27-2023 Platelets (Bld) [#/Vol] 193 10*3/uL 150-450 [facility] Potassium [Moles/volume] in Serum or PlasmaOrdered By: Obie Hylton on 05-27-2023 Potassium [Moles/Vol] 4.4 mmol/L 3.5-5.1 [facility] Protein Auto test strip (U) [Mass/Vol]Ordered By: Obie Hylton on 05-27-2023 Protein (U) [Mass/Vol] Negative Negative [facility] Protein [Mass/volume] in Ser um or PlasmaOrdered By: Obie Hylton on 05-27-2023 Protein [Mass/Vol] 6.0 g/dL 6.4-8.9 [facility] RBC Auto (Bld) [#/Vol]Ordere d By: Obie Hylton on 05-27-2023 RBC (Bld) [#/Vol] 3.68 10*6/uL 3.60-5.00 [facility] Serum or plasma albumin/glob ulin mass ratioOrdered By: Obie Hylton on 05-27-2023 Albumin/Globulin [Mass ratio] 1.9 {ratio} [facility] Serum or plasma anion gap de terminationOrdered By: Obie Hylton on 05-27-2023 Anion gap [Moles/Vol] 8.4 mmol/L 6.0-15.0 [facility] Sodium [Moles/volume] in Ser um or PlasmaOrdered By: Obie Hylton on 05-27-2023 Sodium [Moles/Vol] 143 mmol/L 136-145 [facility] Specific gravity Auto test s trip (U) [Rel density]Ordered By: Obie Hylton on 05-27-2023 Specific gravity (U) [Rel density] 1.017 1.001-1.03 0 [facility] Squamous epithelial cells de tection in urine sediment by light microscopyOrdered By: Obie Hylton on 05-27-2023 Epithelial cells.squamous LM Ql (Urine sed) 1-2 [HPF] 0-2 [facility] Urea nitrogen [Mass/volume] in Serum or PlasmaOrdered By: Obie Hylton on 05-27-2023 Urea nitrogen [Mass/Vol] 25 mg/dL 7-25 [facility] Urine bacteria detection by automated methodOrdered By: Obie Hylton on 05-27-2023 Bacteria Auto Ql (U) None seen None Seen [facility] Urine clarity by refractomet ry automatedOrdered By: Obie Hylton on 05-27-2023 Clarity Refractometry automated (U) Cloudy Clear [facility] Urine glucose measurement by automated test strip (mass/volume)Ordered By: Obie Hylton on 05-27-2023 Glucose Auto test strip (U) [Mass/Vol] Normal mg/dL Normal [facility] Urine hemoglobin detection b y automated test stripOrdered By: Obie Hylton on 05-27-2023 Hemoglobin Auto test strip Ql (U) Trace Negative [facility] Urine leukocyte esterase det ection by automated test stripOrdered By: Obie Hylton on 05-27-2023 Leukocyte esterase Auto test strip Ql (U) Negative Negative [facility] Urobilinogen Auto test strip (U) [Mass/Vol]Ordered By: Obie Hylton on 05-27-2023 Urobilinogen (U) [Mass/Vol] Normal mg/dL Normal [facility] WBC Auto (Bld) [#/Vol]Ordere d By: Obie Hylton on 05-27-2023 WBC (Bld) [#/Vol] 3.9 10*3/uL 3.8-11.6 [facility] pH Auto test strip (U)Ordere d By: Obie Hylton on 05-27-2023 pH (U) 5.5 [pH] 5.0-9.0 [facility] Follow-Upon 04-11-2023 Follow-Up [id number] Genny Rios 1945 F Date Provider Department Center [id number] family history on file Level of Service:02879 [place] OFFICE/OUTPATIENT ESTABLISHED LOW MDM 20-29 MIN Normal [facility] Office Visiton 03-28-2023 Follow-up visit [id number] Genny Rios 1945 F Date Provider Department Center 03/28/2023 [id number], XU [facility] No family history on file Level of Service:48451 [place] OFFICE/OUTPATIENT NEW MODERATE MDM 45-59 MINUTES Normal [facility] US RENAL LIMITEDon 3 Simple bilateral agus al cysts with otherwise unremarkable exam [facility] RIS CONSOLIDATED EXAMINATION: ULTRASOUND OF THE KIDNEYS 03/13/2023 10:12 am COMPARISON: None. HISTORY: ORDERING SYSTEM PROVIDED HISTORY: Renal cyst TECHNOLOGIST PROVIDED HISTORY: This procedure can be scheduled via [employer]. Access your [employer] account by visiting [employer]. FINDINGS: The right kidney measures 11.7 cm in length and the left kidney measures 11.3 cm in length. Normal renal cortical echogenicity. No hydronephrosis or nephrolithiasis. Simple right renal cyst 5 cm. Simple left renal cyst 5.2 cm. [facility] RIS CONSOLIDATED Jonny Lopez DO - 03/13/2023 EXAMINATION: ULTRASOUND OF THE KIDNEYS 03/13/2023 10:12 am COMPARISON: None. HISTORY: ORDERING SYSTEM PROVIDED HISTORY: Renal cyst TECHNOLOGIST PROVIDED HISTORY: This procedure can be scheduled via [email or web address]. Access your [employer] account by visiting [employer]. FINDINGS: The right kidney measures 11.7 cm in length and the left kidney measures 11.3 cm in length. Normal renal cortical echogenicity. No hydronephrosis or nephrolithiasis. Simple right renal cyst 5 cm. Simple left renal cyst 5.2 cm. IMPRESSION: Simple bilateral renal cysts with otherwise unremarkable exam [facility] Study observation (narrative) [facility] US RENAL LIMITEDOrdered By: Jonny Lopez on 03-13-2023 [employer] Work Phone: Consent for Procedure/Surger yon 03-01-2023 Consent for Procedure/Surgery [id number]:[id number] Normal [facility] Ambulatory Visit Summaryon 0 02-28-2023 Ambulatory [...] tablet) fluticasone nasal (fluticasone 0.05 mg/inh Nasal [place]) levothyroxine (levothyroxine 50 mcg (0.05 mg) Tab) [...] fluticasone nasal (fluticasone 0.05 mg/ inh Nasal [place]) 50 Microgram Nasal Inhalation Every day Unchanged [...] Nocturia Sl (more content not included)... Normal [facility] CBC with Auto Differentialon 11-25-2022 Basophils (Bld) [#/Vol] 0.00 10*3/uL [employer] Basophils/100 WBC (Bld) 0 % 0 - 2 % [employer] Differential Type YES [facility] Eosinophils (Bld) [#/Vol] 0.10 10*3/uL [facility] Eosinophils/100 WBC (Bld) 2 % 0 - 5 % [facility] Erythrocyte distribution width (RBC) [Ratio] 14.0 % 12.1 - 15.2 % [facility] Hematocrit (Bld) [Volume fraction] 35.6 % Low 36 - 46 % [facility] Hemoglobin (Bld) [Mass/Vol] 12.0 g/dL 12.0 - 16.0 g/dL [facility] Interpretation and review of laboratory results Abnormal [facility] Lymphocytes/100 WBC (Bld) 27 % 15 - 40 % [facility] Lymphocytes/100 WBC (Bld) 1.30 % [facility] MCH (RBC) [Entitic mass] 31.0 pg 26 - 34 pg [facility] MCHC (RBC) [Mass/Vol] 33.8 g/dL 31 - 3 7 g/dL [facility] MCV (RBC) [Entitic vol] 91.6 fL 80 - 100 fL [facility] Monocytes/100 WBC (Bld) 9 % High 4 - 8 % [facility] Monocytes/100 WBC (Bld) 0.50 % [facility] Neutrophils/100 WBC (Bld) 62 % 47 - 75 % [facility] Platelets (Bld) [#/Vol] 240 10*3/uL [facility] RBC (Bld) [#/Vol] 3.89 10*6/uL Low 4.0 - 5.2 m/uL [facility] Segmented neutrophils/100 WBC (Bld) 3.10 % [facility] WBC other (Bld) [#/Vol] 5.0 [facility] Comprehensive Metabolic Pane trevor 11-25-2022 Albumin [Mass/Vol] 3.7 g/dL 3.5 - 5.2 g/dL [facility] ALP [Catalytic activity/Vol] 70 U/L 35 - 104 U/L [facility] ALT [Catalytic activity/Vol] 6 U/L 5 - 33 U/L [facility] Anion gap [Moles/Vol] 10 mmol/L 9 - 17 mmol/L [facility] AST [Catalytic activity/Vol] 15 U/L NINF - 32 U/L [facility] Bilirubin [Mass/Vol] 0.3 mg/dL 0.3 - 1 .2 mg/dL [facility] Calcium [Mass/Vol] 9.4 mg/dL 8.6 - 10. 4 mg/dL [facility] Chloride [Moles/Vol] 105 mmol/L 98 - 10 7 mmol/L [facility] CO2 [Moles/Vol] 24 mmol/L 20 - 31 mmol/L [facility] Creatinine [Mass/Vol] 1.12 mg/dL High 0.50 - 0.90 mg/dL [facility] GFR/1.73 sq M.predicted MDRD (S/P/Bld) [Vol rate/Area] 51 mL/min/{1.73_m2} Low - PINF [facility] Comment on above: These results [...] [Mass/Vol] 97 mg/dL 70 - 99 mg/dL [facility] Interpretation and review of laboratory results Abnormal [facility] Potassium [Moles/Vol] 4.1 mmol/L 3.7 - 5.3 mmol/L [facility] Protein [Mass/Vol] 6.7 g/dL 6.4 - 8.3 g/dL [facility] Sodium [Moles/Vol] 139 mmol/L 135 - 144 mmol/L [facility] Urea nitrogen [Mass/Vol] 32 mg/dL High 8 - 23 mg/dL [facility] Urea nitrogen/Creatinine [Mass ratio] 29 mg/mg High 9 - 20 [facility] Microscopic Urinalysison - [facility] Epithelial cells LM.HPF (Urine sed) [#/Area] 0 TO 2 /HPF [facility] RBC LM.HPF (Urine sed) [#/Area] 0 TO 2 [facility] WBC LM.HPF (Urine sed) [#/Area] NONE SEEN 0 /HPF [facility] Urinalysison 11-25-2022 Bilirubin Ql (U) Negative [facility] Clarity (U) Clear Clear [facility] Color (U) Yellow Yellow [facility] Glucose Test strip (U) [Mass/Vol] Negative NEGATIVE [facility] Hemoglobin Auto test strip Ql (U) TRACE Abnormal NEGATIVE [facility] Interpretation and review of laboratory results Abnormal [facility] Ketones (U) [Mass/Vol] Negative NEGATIVE [facility] Leukocyte esterase Test strip Ql (U) Negative NEGATIVE [facility] Nitrite Ql (U) Negative NEGATIVE [facility] pH (U) 6.5 [pH] 5.0 - 8.0 [facility] Protein (U) [Mass/Vol] TRACE Abnormal NEGATIVE [facility] Specific gravity (U) [Rel density] 1.015 1.005 - 1.030 [facility] Urinalysis Comments [facility] Urobilinogen Qn (U) Normal Normal [facility] XR CHEST (2 VW)on 11-25-2022 No acute cardiopulmonary findings. PN RIS CONSOLIDATED EXAM: XR CHEST (2 VW ) INDICATION: Reason for exam:->Recently treated for Pneumonia. COMPARISON: 11/17/2022 TECHNIQUE: Chest radiograph(s) as above FINDINGS: Lines/Tubes: None Lungs: No pneumothorax, pleural effusion, or consolidation. Cardiomediastinal silhouette: Normal in size. Bones/Soft Tissues: No acute osseous abnormality. Right upper quadrant surgical clips. PN RIS CONSOLIDATED eBllo Zheng MD - 11/25/2022 EXAM: XR CHEST (2 VW) INDICATION: Reason for exam:->Recently treated for Pneumonia. COMPARISON: 11/17/2022 TECHNIQUE: Chest radiograph(s) as above FINDINGS: Lines/Tubes: None Lungs: No pneumothorax, pleural effusion, or consolidation. Cardiomediastinal silhouette: Normal in size. Bones/Soft Tissues: No acute osseous abnormality. Right upper quadrant surgical clips. IMPRESSION: No acute cardiopulmonary findings. [facility] Phone: Radiology Study observation (narrative) [facility] Phone: XR CHEST (2 VW)Ordered By: Dejan Zheng on 11-25-2022 [facility] Phone: XR CHEST (2 VW)on 08-29-2022 FINDINGS/IMPRESSION: 1. Normal sized heart. 2. Clear lungs. MHPN RIS CONSOLIDATED EXAM: XR CHEST (2 VW ) HISTORY: Reason for exam:->HTN. COMPARISON: Portable chest 03/31/2020. PN RIS CONSOLIDATED Ishmael Valentin Jr., MD - 08/29/2022 EXAM: XR CHEST (2 VW) HISTORY: Reason for exam:->HTN. COMPARISON: Portable chest 03/31/2020. IMPRESSION: FINDINGS/IMPRESSION: 1. Normal sized heart. 2. Clear lungs. [facility] Phone: Radiology Study observation (narrative) [facility] Phone: XR CHEST (2 VW)Ordered By: Jo Valentin on 08-29-2022 [facility] Phone: Aspartate aminotransferase [ Enzymatic activity/volume] in Serum or PlasmaOrdered By: Obie Hylton on 08-21-2022 AST [Catalytic activity/Vol] 16 U/L 10-42 [facility] Automated erythrocytes count in urine sediment (number/area)Ordered By: Obie Hylton on 08-21-2022 RBC Auto (Urine sed) [#/Area] 1-2 [HPF] 0-4 [facility] Automated leukocytes count i n urine sediment (number/area)Ordered By: Obie Hylton on 08-21-2022 WBC Auto (Urine sed) [#/Area] 5-9 [HPF] 0-4 [facility] Basophils Auto (Bld) [#/Vol] Ordered By: Obie Hylton on 08-21-2022 Basophils (Bld) [#/Vol] 0.0 10*3/uL 0.0-0.2 [facility] Basophils/100 WBC Auto (Bld) Ordered By: Obie Hylton on 08-21-2022 Basophils/100 WBC (Bld) 0.3 % . [facility] Bilirubin Test strip Ql (U)O rdered By: Obie Hylton on 08-21-2022 Bilirubin Ql (U) Negative Negative [facility] Body fluid albumin measureme nt (mass/volume)Ordered By: Obie Hylton on 08-21-2022 Albumin (Body fld) [Mass/Vol] 3.6 g/dL 3.2-5.5 [facility] Cholesterol [Mass/volume] in Serum or PlasmaOrdered By: Kenneth Pascal on 08-21-2022 Cholesterol [Mass/Vol] 120 mg/dL 140-200 [facility] Comment on above: Chol less than 200 m g/dl low riskChol 201-239 mg/dl borderline riskChol 240 mg/dl and greater high risk Cholesterol in LDL Calc [Mas s/Vol]Ordered By: Kenneth Pascal on 08-21-2022 Cholesterol in LDL [Mass/Vol] 59 mg/dL 0-100 [facility] Comment on above: LDL ATP III CLASSIFI CATIONLDL less than 100 mg/dL OptimalLDL 100-129 mg/dL Near or above optimalLDL 130-159 mg/dL Borderline highLDL 160-189 mg/dL HighLDL greater than 189 mg/dL Very high Cholesterol in VLDL Calc [Ma ss/Vol]Ordered By: Kenneth Pascal on 08-21-2022 Cholesterol in VLDL [Mass/Vol] 15 mg/dL [facility] Color Auto (U)Ordered By: Cindy Hylton on 08-21-2022 Color (U) Yellow Yellow [facility] Creatinine and Glomerular fi ltration rate.predicted panel (S/P/Bld)Ordered By: Obie Hylton on 08-21-2022 Creatinine [Mass/Vol] 1.19 mg/dL 0.44-1.03 [facility] Eosinophils Auto (Bld) [#/Vo l]Ordered By: Obie Hylton on 08-21-2022 Eosinophils (Bld) [#/Vol] 0.1 10*3/uL 0.0-0.45 [facility] Eosinophils/100 WBC Auto (Bl d)Ordered By: Obie Hylton on 08-21-2022 Eosinophils/100 WBC (Bld) 1.2 % . [facility] Erythrocyte distribution wid th Auto (RBC) [Ratio]Ordered By: Obie Hylton on 08-21-2022 Erythrocyte distribution width (RBC) [Ratio] 14.5 % 11.9-15.3 [facility] Erythrocyte sedimentation ra te by Photometric methodOrdered By: Obie Hylton on 08-21-2022 ESR Photometric method (d) [Velocity] 9 mm/hr 0-29 [facility] Estimated glomerular filtrat ion rate (GFR) non- AmericanOrdered By: Obie Hylton on 08-21-2022 GFR/1.73 sq M.predicted among non-blacks MDRD (S/P/Bld) [Vol rate/Area] 44 mL/Min [facility] Globulin Calc (S) [Mass/Vol] Ordered By: Obie Hylton on 08-21-2022 Globulin (S) [Mass/Vol] 2.6 g/dL [facility] Hematocrit Auto (Bld) [Volum e fraction]Ordered By: Obie Hylton on 08-21-2022 Hematocrit (Bld) [Volume fraction] 35.6 % 34.0-46.4 [facility] Hemoglobin [Mass/volume] in BloodOrdered By: Obie Hylton on 08-21-2022 Hemoglobin (Bld) [Mass/Vol] 11.9 g/dL 11.8-15.4 [facility] Ketones Auto test strip (U) [Mass/Vol]Ordered By: Obie Hylton on 08-21-2022 Ketones (U) [Mass/Vol] Negative Negative [facility] Laboratory - Chemistry and C hemistry - challengeOrdered By: Kenneth Pascal on 08-21-2022 Magnesium [Mass/Vol] 2.1 mg/dL 1.6-2.6 [facility] Laboratory - UrinalysisOrder ed By: Obie Hylton on 08-21-2022 Hyaline casts LM Ql (Urine sed) 0-8 [LPF] 0-8 [facility] Leukocytes [#/volume] correc pepito for nucleated erythrocytes in Blood by Automated counOrdered By: Obie Hylton on 08-21-2022 WBC corrected for nucl RBC Auto (Bld) [#/Vol] 4.7 10*3/uL 3.8-11.6 [facility] Lymphocytes Auto (Bld) [#/Vo l]Ordered By: Obie Hylton on 08-21-2022 Lymphocytes (Bld) [#/Vol] 1.0 10*3/uL 1.00-4.8 [facility] Lymphocytes/100 WBC Auto (Bl d)Ordered By: Obie Hylton on 08-21-2022 Lymphocytes/100 WBC (Bld) 21.8 % . [facility] MCH Auto (RBC) [Entitic mass ]Ordered By: Obie Hylton on 08-21-2022 MCH (RBC) [Entitic mass] 33.9 pg 24.7-34.3 [facility] MCHC Auto (RBC) [Mass/Vol]Or dered By: Obie Hylton on 08-21-2022 MCHC (RBC) [Mass/Vol] 33.5 g/dL 32.0-35.0 [facility] MCV Auto (RBC) [Entitic vol] Ordered By: Obie Hylton on 08-21-2022 MCV (RBC) [Entitic vol] 101.2 fL 80-100 [facility] Monocytes Auto (Bld) [#/Vol] Ordered By: Obie Hylton on 08-21-2022 Monocytes (Bld) [#/Vol] 0.4 10*3/uL 0.0-0.8 [facility] Monocytes/100 WBC Auto (Bld) Ordered By: Obie Hylton on 08-21-2022 Monocytes/100 WBC (Bld) 8.2 % . [facility] Neutrophils Auto (Bld) [#/Vo l]Ordered By: Obie Hylton on 08-21-2022 Neutrophils (Bld) [#/Vol] 3.2 10*3/uL 1.8-7.7 [facility] Neutrophils/100 WBC Auto (Bl d)Ordered By: Obie Hylton on 08-21-2022 Neutrophils/100 WBC (Bld) 68.5 % . [facility] Nitrite Test strip Ql (U)Ord ered By: Obie Hylton on 08-21-2022 Nitrite Ql (U) Negative Negative [facility] No Panel InformationOrdered By: Kenneth Pascal on 08-21-2022 25-Hydroxy Vitamin D Total 43.9 ng/mL 30-100 [facility] Comment on above: VITAMIN D STATUS 25( [place])VITAMIN D RANGE (ng/mL) Deficient <20 Insufficient 20 to <30Sufficient 30 to 100Reference: Jennifer MF,Babs LUCERO, Blank GALLARDO, et al. Evaluation,treatment, and prevention of vitamin D deficiency; an Endocrine Society clinical practice guideline. JCEM. 2010; 96(7):1911-30. No Panel InformationOrdered By: Obie Hylton on 08-21-2022 Estimated GFR () 53 mL/Min [facility] Comment on above: GFR estimated refere nce range: According to KDOQI guidelines, <60 ml/min/1.73m2 is sufficient to diagnose a patient with chronic kidney disease. Pharmacy Creatinine Clearance (Chem N/A [facility] Nucleated erythrocytes [Pres ence] in Blood by Automated countOrdered By: Obie Hylton on 08-21-2022 Nucleated RBC Auto Ql (Bld) 0.2 /100{WBC} 0-0.5 [facility] Platelet mean volume Auto (B ld) [Entitic vol]Ordered By: Obie Hylton on 08-21-2022 Platelet mean volume (Bld) [Entitic vol] 9.0 fL 6.3-10.7 [facility] Platelets Auto (Bld) [#/Vol] Ordered By: Obie Hylton on 08-21-2022 Platelets (Bld) [#/Vol] 188 10*3/uL 150-450 [facility] Protein Auto test strip (U) [Mass/Vol]Ordered By: Obie Hylton on 08-21-2022 Protein (U) [Mass/Vol] Negative Negative [facility] Protein [Mass/volume] in Ser um or PlasmaOrdered By: Obie Hylton on 08-21-2022 Protein [Mass/Vol] 6.2 g/dL 6.1-7.9 [facility] RBC Auto (Bld) [#/Vol]Ordere d By: Obie Hylton on 08-21-2022 RBC (Bld) [#/Vol] 3.52 10*6/uL 3.60-5.00 [facility] Serum or plasma alanine negro otransferase measurement without P-5'-P (enzymatic activiOrdered By: Obie Hylton on 08-21-2022 ALT No additional P-5'-P [Catalytic activity/Vol] 12 U/L 10-60 [facility] Serum or plasma albumin/glob ulin mass ratioOrdered By: Obie Hylton on 08-21-2022 Albumin/Globulin [Mass ratio] 1.4 {ratio} [facility] Serum or plasma alkaline glen sphatase measurement (enzymatic activity/volume)Ordered By: Obie Hylton on 08-21-2022 ALP [Catalytic activity/Vol] 58 U/L 32-92 [facility] Serum or plasma anion gap de terminationOrdered By: Obie Hylton on 08-21-2022 Anion gap [Moles/Vol] 13.5 mmol/L 6.0-15.0 [facility] Serum or plasma calcium olivia urement (mass/volume)Ordered By: Obie Hylton on 08-21-2022 Calcium [Mass/Vol] 9.1 mg/dL 8.2-10.2 [facility] Serum or plasma chloride wilner surement (moles/volume)Ordered By: Obie Hylton on 08-21-2022 Chloride [Moles/Vol] 105 mmol/L 95-114 [facility] Serum or plasma glucose olivia urement (mass/volume)Ordered By: Obie Hylton on 08-21-2022 Glucose [Mass/Vol] 91 mg/dL 70-100 [facility] Comment on above: ADA recommended refe rence rangeRandom Glucose Reference Range is dependent on time and content of last meal. Glucose of more than 200 mg/dL in a nonstressed, ambulatory subject supports the diagnosis of Diabetes Mellitus. Serum or plasma high density lipoprotein (HDL) cholesterol measurementOrdered By: Kenneth Pascal on 08-21-2022 Cholesterol in HDL [Mass/Vol] 45 mg/dL 35-85 [facility] Comment on above: HDL CHOL ATP-III CLA SSIFICATION Cardiovascular RiskHDL > or equal to 60 mg/dL LOWHDL < 40 mg/dL HIGH Serum or plasma potassium me asurement (moles/volume)Ordered By: Obie Hylton on 08-21-2022 Potassium [Moles/Vol] 4.1 mmol/L 3.5-5.1 [facility] Serum or plasma sodium measu rement (moles/volume)Ordered By: Obie Hylton on 08-21-2022 Sodium [Moles/Vol] 138 mmol/L 136-146 [facility] Serum or plasma total biliru bin measurement (mass/volume)Ordered By: Obie Hylton on 08-21-2022 Bilirubin [Mass/Vol] 0.3 mg/dL 0.3-1.2 [facility] Serum or plasma total carbon dioxide measurement (moles/volume)Ordered By: Obie Hylton on 08-21-2022 CO2 [Moles/Vol] 23.6 mmol/L 22.0-30.0 [facility] Serum or plasma total choles terol/high density lipoprotein (HDL) cholesterol mass ratOrdered By: Kenneth Pascal on 08-21-2022 Cholesterol.total/Cho lesterol in HDL [Mass ratio] 2.7 {ratio} <5.0 [facility] Serum or plasma urea nitroge n measurement (mass/volume)Ordered By: Obie Hylton on 08-21-2022 Urea nitrogen [Mass/Vol] 25 mg/dL 9-23 [facility] Specific gravity Auto test s trip (U) [Rel density]Ordered By: Obie Hylton on 08-21-2022 Specific gravity (U) [Rel density] 1.014 1.001-1.03 0 [facility] Squamous epithelial cells de tection in urine sediment by light microscopyOrdered By: Obie Hylton on 08-21-2022 Epithelial cells.squamous LM Ql (Urine sed) 5-9 [HPF] 0-2 [facility] TSH DL <= 0.005 mIU/L QnOrde red By: Kenneth Pascal on 08-21-2022 TSH Qn 1.14 m[IU]/L 0.45-5.33 [facility] Triglyceride [Mass/volume] i n Serum or PlasmaOrdered By: Kenneth Pascal on 08-21-2022 Triglyceride [Mass/Vol] 78 mg/dL 35-149 [facility] Comment on above: TRIG ATP III CLASSIF ICATIONTRIG less than 150 mg/dL NormalTRIG 150-199 mg/dL Borderline highTRIG 200-500 mg/dL High TRIG greater than 500 mg/dL Very highStandard traceable to the Center for Disease Conrtrol and Prevention (CDC) test method. Urine bacteria detection by automated methodOrdered By: Obie Hylton on 08-21-2022 Bacteria Auto Ql (U) None seen None Seen [facility] Urine clarity by refractomet ry automatedOrdered By: Obie Hylton on 08-21-2022 Clarity Refractometry automated (U) Clear Clear [facility] Urine glucose measurement by automated test strip (mass/volume)Ordered By: Obie Hylton on 08-21-2022 Glucose Auto test strip (U) [Mass/Vol] Normal mg/dL Normal [facility] Urine hemoglobin detection b y automated test stripOrdered By: Obie Hylton on 08-21-2022 Hemoglobin Auto test strip Ql (U) Trace Negative [facility] Urine leukocyte esterase det ection by automated test stripOrdered By: Obie Hylton on 08-21-2022 Leukocyte esterase Auto test strip Ql (U) 1+ Negative [facility] Urobilinogen Auto test strip (U) [Mass/Vol]Ordered By: Obie Hylton on 08-21-2022 Urobilinogen (U) [Mass/Vol] Normal mg/dL Normal [facility] WBC Auto (Bld) [#/Vol]Ordere d By: Obie Hylton on 08-21-2022 WBC (Bld) [#/Vol] 4.7 10*3/uL 3.8-11.6 [facility] pH Auto test strip (U)Ordere d By: Obie Hylton on 08-21-2022 pH (U) 7.0 [pH] 5.0-9.0 [facility] CHEMISTRYOrdered By: SYSTEM SYSTEM on 07-10-2022 Anion [...] 48 mL/min/1.73 m2 Low >=59mL/min /1.73 m2 [facility] [place] S GFR/1.73 sq M.predicted among non-blacks MDRD (S/P/Bld) [Vol rate/Area] 40 mL/min/1.73 m2 Low >=59mL/min /1.73 m2 [facility] Chem S Glucose [Mass/Vol] 97 mg/dL Normal 55 - 199 mg/dL [facility] Magnesium [Mass/Vol] 2.2 mg/dL Normal 1.3 - 2 .4 mg/dL [facility] Potassium [Moles/Vol] 4.4 mmol/L Normal 3.5 - 5.3 mmol/L [facility] Sodium [Moles/Vol] 140 mmol/L Normal 135 - 145 mmol/L [facility] Urea nitrogen [Mass/Vol] 37 mg/dL High 5 - 21 mg/dL [facility] Urea nitrogen/Creatinine [Mass ratio] 28 mg/mg High 10 - 20 [facility] Remisol Albumin [Mass/volume] in Ser um or PlasmaOrdered By: Obie Hylton on 02-22-2022 Albumin [Mass/Vol] 3.5 g/dL 3.2-5.5 [facility] Automated erythrocytes count in urine sediment (number/area)Ordered By: bOie Hylton on 02-22-2022 RBC Auto (Urine sed) [#/Area] 3-4 [HPF] 0-4 [facility] Automated leukocytes count i n urine sediment (number/area)Ordered By: Obie Hylton on 02-22-2022 WBC Auto (Urine sed) [#/Area] 1-2 [HPF] 0-4 [facility] Basophils Auto (Bld) [#/Vol] Ordered By: Obie Hylton on 02-22-2022 Basophils (Bld) [#/Vol] 0.0 10*3/uL 0.0-0.2 [facility] Basophils/100 WBC Auto (Bld) Ordered By: Obie Hylton on 02-22-2022 Basophils/100 WBC (Bld) 0.2 % . [facility] Bilirubin Test strip Ql (U)O rdered By: Obie Hylton on 02-22-2022 Bilirubin Ql (U) Negative Negative [facility] Blood hemoglobin measurement (mass/volume)Ordered By: Obie Hylton on 02-22-2022 Hemoglobin (Bld) [Mass/Vol] 12.3 g/dL 11.8-15.4 [facility] Blood leukocytes automated c ount (number/volume)Ordered By: Obie Hylton on 02-22-2022 WBC (Bld) [#/Vol] 5.1 10*3/uL 4.5-11.0 [facility] Color Auto (U)Ordered By: Cindy Hylton on 02-22-2022 Color (U) Yellow Yellow [facility] Creatinine and Glomerular fi ltration rate.predicted panel (S/P/Bld)Ordered By: Obie Hylton on 02-22-2022 Creatinine [Mass/Vol] 1.16 mg/dL 0.44-1.03 [facility] Eosinophils Auto (Bld) [#/Vo l]Ordered By: Obie Hylton on 02-22-2022 Eosinophils (Bld) [#/Vol] 0.1 10*3/uL 0.0-0.45 [facility] Eosinophils/100 WBC Auto (Bl d)Ordered By: Obie Hylton on 02-22-2022 Eosinophils/100 WBC (Bld) 1.4 % . [facility] Erythrocyte distribution wid th Auto (RBC) [Ratio]Ordered By: Obie Hylton on 02-22-2022 Erythrocyte distribution width (RBC) [Ratio] 15.3 % 11.9-15.3 [facility] Estimated glomerular filtrat ion rate (GFR) non- AmericanOrdered By: Obie Hylton on 02-22-2022 GFR/1.73 sq M.predicted among non-blacks MDRD (S/P/Bld) [Vol rate/Area] 45 mL/Min [facility] Globulin Calc (S) [Mass/Vol] Ordered By: Obie Hylton on 02-22-2022 Globulin (S) [Mass/Vol] 2.5 g/dL [facility] Hematocrit Auto (Bld) [Volum e fraction]Ordered By: Obie Hylton on 02-22-2022 Hematocrit (Bld) [Volume fraction] 36.6 % 34.0-46.4 [facility] Ketones Auto test strip (U) [Mass/Vol]Ordered By: Obie Hylton on 02-22-2022 Ketones (U) [Mass/Vol] Negative Negative [facility] Laboratory - Hematology and Cell countsOrdered By: Obie Hylton on 02-22-2022 Nucleated RBC/100 WBC (Bld) [Ratio] 0.0 % 0-0.5 [facility] Laboratory - UrinalysisOrder ed By: Obie Hylton on 02-22-2022 Hyaline casts LM Ql (Urine sed) None seen [LPF] 0-8 [facility] Lymphocytes Auto (Bld) [#/Vo l]Ordered By: Obie Hylton on 02-22-2022 Lymphocytes (Bld) [#/Vol] 1.1 10*3/uL 1.00-4.8 [facility] Lymphocytes/100 WBC Auto (Bl d)Ordered By: Obie Hylton on 02-22-2022 Lymphocytes/100 WBC (Bld) 22.2 % . [facility] MCH Auto (RBC) [Entitic mass ]Ordered By: Obie Hylton on 02-22-2022 MCH (RBC) [Entitic mass] 33.0 pg 24.7-34.3 [facility] MCHC Auto (RBC) [Mass/Vol]Or dered By: Obie Hylton on 02-22-2022 MCHC (RBC) [Mass/Vol] 33.5 g/dL 32.0-35.0 [facility] MCV Auto (RBC) [Entitic vol] Ordered By: Obie Hylton on 02-22-2022 MCV (RBC) [Entitic vol] 98.5 fL 80-100 [facility] Monocytes Auto (Bld) [#/Vol] Ordered By: Obie Hylton on 02-22-2022 Monocytes (Bld) [#/Vol] 0.5 10*3/uL 0.0-0.8 [facility] Monocytes/100 WBC Auto (Bld) Ordered By: Obie Hylton on 02-22-2022 Monocytes/100 WBC (Bld) 9.0 % . [facility] Neutrophils Auto (Bld) [#/Vo l]Ordered By: Obie Hylton on 02-22-2022 Neutrophils (Bld) [#/Vol] 3.5 10*3/uL 1.8-7.7 [facility] Neutrophils/100 WBC Auto (Bl d)Ordered By: Obie Hylton on 02-22-2022 Neutrophils/100 WBC (Bld) 67.2 % . [facility] Nitrite Test strip Ql (U)Ord ered By: Obie Hylton on 02-22-2022 Nitrite Ql (U) Negative Negative [facility] No Panel InformationOrdered By: Obie Hylton on 02-22-2022 Estimated GFR () 55 mL/Min [facility] Comment on above: GFR estimated refere nce range: According to KDOQI guidelines, <60 ml/min/1.73m2 is sufficient to diagnose a patient with chronic kidney disease. Pharmacy Creatinine Clearance (Chem N/A [facility] Platelet mean volume Auto (B ld) [Entitic vol]Ordered By: Obie Hylton on 02-22-2022 Platelet mean volume (Bld) [Entitic vol] 8.7 fL 6.3-10.7 [facility] Platelets Auto (Bld) [#/Vol] Ordered By: Obie Hylton on 02-22-2022 Platelets (Bld) [#/Vol] 182 10*3/uL 150-450 [facility] Protein Auto test strip (U) [Mass/Vol]Ordered By: Obie Hylton on 02-22-2022 Protein (U) [Mass/Vol] Negative Negative [facility] Protein [Mass/volume] in Ser um or PlasmaOrdered By: Obie Hylton on 02-22-2022 Protein [Mass/Vol] 6.0 g/dL 6.1-7.9 [facility] RBC Auto (Bld) [#/Vol]Ordere d By: Obie Hylton on 02-22-2022 RBC (Bld) [#/Vol] 3.72 10*6/uL 3.60-5.00 [facility] Serum or plasma alanine negro otransferase measurement without P-5'-P (enzymatic activiOrdered By: Obie Hylton on 02-22-2022 ALT No additional P-5'-P [Catalytic activity/Vol] 14 U/L 10-60 [facility] Serum or plasma albumin/glob ulin mass ratioOrdered By: Obie Hylton on 02-22-2022 Albumin/Globulin [Mass ratio] 1.4 {ratio} [facility] Serum or plasma alkaline glen sphatase measurement (enzymatic activity/volume)Ordered By: Obie Hylton on 02-22-2022 ALP [Catalytic activity/Vol] 54 U/L 32-92 [facility] Serum or plasma aspartate am inotransferase measurement (enzymatic activity/volume)Ordered By: Obie Hylton on 02-22-2022 AST [Catalytic activity/Vol] 17 U/L 10-42 [facility] Serum or plasma calcium olivia urement (mass/volume)Ordered By: Obie Hylton on 02-22-2022 Calcium [Mass/Vol] 9.0 mg/dL 8.2-10.2 [facility] Serum or plasma chloride wilner surement (moles/volume)Ordered By: Obie Hylton on 02-22-2022 Chloride [Moles/Vol] 107 mmol/L 95-114 [facility] Serum or plasma glucose olivia urement (mass/volume)Ordered By: Obie Hylton on 02-22-2022 Glucose [Mass/Vol] 90 mg/dL 70-100 [facility] Comment on above: ADA recommended refe rence [...] on 02-22-2022 Potassium [Moles/Vol] 4.2 mmol/L 3.5-5.1 [facility] Serum or plasma sodium measu rement (moles/volume)Ordered By: Obie Hylton on 02-22-2022 Sodium [Moles/Vol] 139 mmol/L 136-146 [facility] Serum or plasma total biliru bin measurement (mass/volume)Ordered By: Obie Hylton on 02-22-2022 Bilirubin [Mass/Vol] 0.5 mg/dL 0.3-1.2 [facility] Serum or plasma total carbon dioxide measurement (moles/volume)Ordered By: Obie Hylton on 02-22-2022 CO2 [Moles/Vol] 24.9 mmol/L 22.0-30.0 [facility] Serum or plasma urea nitroge n measurement (mass/volume)Ordered By: Obie Hylton on 02-22-2022 Urea nitrogen [Mass/Vol] 25 mg/dL 9-23 [facility] Specific gravity Auto test s trip (U) [Rel density]Ordered By: Obie Hylton on 02-22-2022 Specific gravity (U) [Rel density] 1.015 1.001-1.03 0 [facility] Squamous epithelial cells de tection in urine sediment by light microscopyOrdered By: Obie Hylton on 02-22-2022 Epithelial cells.squamous LM Ql (Urine sed) 0-1 [HPF] 0-2 [facility] Urine bacteria detection by automated methodOrdered By: Obie Hylton on 02-22-2022 Bacteria Auto Ql (U) None seen None Seen [facility] Urine clarity by refractomet ry automatedOrdered By: Obie Hylton on 02-22-2022 Clarity Refractometry automated (U) Clear Clear [facility] Urine glucose measurement by automated test strip (mass/volume)Ordered By: Obie Hylton on 02-22-2022 Glucose Auto test strip (U) [Mass/Vol] Normal mg/dL Normal [facility] Urine hemoglobin detection b y automated test stripOrdered By: Obie Hylton on 02-22-2022 Hemoglobin Auto test strip Ql (U) 1+ Negative [facility] Urine leukocyte esterase det ection by automated test stripOrdered By: Obie Hylton on 02-22-2022 Leukocyte esterase Auto test strip Ql (U) Negative Negative [facility] Urobilinogen Auto test strip (U) [Mass/Vol]Ordered By: Obie Hylton on 02-22-2022 Urobilinogen (U) [Mass/Vol] Normal mg/dL Normal [facility] pH Auto test strip (U)Ordere d By: Obie Hylton on 02-22-2022 pH (U) 6.0 [pH] 5.0-9.0 [facility] WU DIGITAL SCREEN BILA TERALon 02-01-2022 BI-RADS 1 - Negative, no evidence of malignancy. Normal interval followup in 12 months. OVERALL ASSESSMENT- NEGATIVE A letter of notification will be sent to the patient regarding the results. [facility] HISTORY: Screening. Family history of breast carcinoma. TECHNIQUE: Bilateral digital screening mammogram with CAD. 2-D and 3-D tomography. FINDINGS: Two views of each breast show scattered areas of fibroglandular density. No change from prior studies, most recent 01/20/2021. Suspicious calcifications: None. Suspicious mass: None. (If skin markers were applied, circles represent skin lesions and linear markers represent scars.) [facility] WU DIGITAL SCREEN BILA TERALOrdered By: Ishmael Valentin on 02-01-2022 [facility] Phone: [facility] WU DIGITAL SCREEN BILA TERALon 01-31-2022 Radiology Study observation (narrative) [facility] Phone: XR SHOULDER RIGHT (MIN 2 VIE WS)on 12-02-2021 FINDINGS/IMPRESSION: 1. No significant change since 08/10/2021. 2. Mild AC joint osteoarthrosis remains, with small marginal osteophytes. 3. Osseous ridging from chronic rotator cuff tendinopathy and small reactive subcortical cysts or surgical drill tracks remain in the greater tuberosity of the humerus. 4. No fracture, malalignment, or other acute bony abnormality is seen. [facility] CLINICAL HISTORY: Hi story of right rotator cuff repair surgery (Z98.890). RIGHT SHOULDER 3 VIEWS: COMPARISON: 08/10/2021. [facility] Norm Mcdonnell MD - [...] or other acute bony abnormality is seen. [employer] Work Phone: XR SHOULDER RIGHT (MIN 2 VIE WS)Ordered By: Norm Mcdonnell on 12-02-2021 [facility] Phone: XR SHOULDER RIGHT (MIN 2 VIE WS)on 11-30-2021 Radiology Study observation (narrative) [facility] Phone: Microscopic Urinalysison - [facility] Bacteria, UA TRACE Abnormal None [facility] Epithelial Cells UA 0 TO 2 [facility] Interpretation and review of laboratory results Abnormal [facility] RBC, UA 0 TO 2 [facility] WBC, UA 0 TO 2 [facility] [employer] Urinalysis with Reflex to Cu ltureon 10-26-2021 Bilirubin Urine Negative NEGATIVE [facility] Color, UA Yellow Yellow [facility] Glucose, Ur Negative NEGATIVE [facility] Interpretation and review of laboratory results Abnormal [facility] Ketones Ql (U) Negative NEGATIVE [facility] Leukocyte esterase Test strip Ql (U) Negative NEGATIVE [facility] Nitrite, Urine Negative NEGATIVE [facility] pH, UA 5.5 [facility] Protein, UA Negative NEGATIVE [facility] Specific Milner, UA 1.025 High [facility] Turbidity UA Clear Clear [facility] Urine Hgb 2+ Abnormal NEGATIVE [facility] Urobilinogen, Urine Normal Normal [facility] Microscopic Urinalysison - [facility] Bacteria, UA 1+ Abnormal None [facility] Epithelial Cells UA 2 TO 5 /HPF [facility] Interpretation and review of laboratory results Abnormal [facility] RBC, UA 2 TO 5 [facility] WBC, UA 20 TO 50 0 /HPF [facility] Yeast, UA OCCASIONAL Abnormal None [facility] Urinalysison 10-14-2021 Bilirubin Urine Negative NEGATIVE [facility]a [facility] Color, UA Yellow Yellow [facility] Glucose, Ur Negative NEGATIVE [facility] Interpretation and review of laboratory results Abnormal [facility] Ketones Ql (U) Negative NEGATIVE [facility] Leukocyte esterase Test strip Ql (U) 2+ Abnormal NEGATIVE [facility] Nitrite, Urine Negative NEGATIVE [facility] pH, UA 6.0 [facility] Protein, UA TRACE Abnormal NEGATIVE [facility] Specific [place], UA 1.020 [facility] Turbidity UA Hazy Abnormal Clear [facility] Urinalysis Comments [facility] Urine Hgb 2+ Abnormal NEGATIVE [facility] Urobilinogen, Urine Normal Normal [facility] XR SHOULDER RIGHT (MIN 2 VIE WS)on 08-10-2021 Mild degenerative changes. No acute process. [facility] HISTORY: Pain status post right shoulder arthroscopy TECHNIQUE: 3 views of the right shoulder were obtained COMPARISON: 04/27/2021 FINDINGS: There are mild degenerative changes of acromioclavicular joint. No fracture, dislocation or acute osseous abnormality seen. [facility] John Jauregui MD - 08/10/2021 HISTORY: Pain status post right shoulder arthroscopy TECHNIQUE: 3 views of the right shoulder were obtained COMPARISON: 04/27/2021 FINDINGS: There are mild degenerative changes of acromioclavicular joint. No fracture, dislocation or acute osseous abnormality seen. IMPRESSION: Mild degenerative changes. No acute process. Native Phone: Radiology Study observation (narrative) Native Phone: XR SHOULDER RIGHT (MIN 2 VIE WS)Ordered By: John Jauregui on 08-10-2021 Native Phone: MRI Shoulder w/o Righton MRI Shoulder [...] by Grayson Coronado on 07/12/2021 1110 Normal [facility] XR SHOULDER RIGHT (MIN 2 VIE WS)Ordered By: Christian Meyer on 04-27-2021 Degenerative changes not unusual for age at the acromioclavicular joint. Native Phone: EXAM: XR SHOULDER RI GHT (MIN 2 VIEWS) HISTORY: M25.511. 75-year-old female right shoulder pain. COMPARISON: None. TECHNIQUE: 3 views right shoulder, 4 images. FINDINGS: Moderate degenerative change acromioclavicular joint. Minimal narrowing glenohumeral joint. Negative for calcific bursitis. Native Phone: Magdiel, Mhpn Incoming R adiant Results From [employer] - 04/27/2021 12:21 PM EDT EXAM: XR SHOULDER RIGHT (MIN 2 VIEWS) HISTORY: M25.511. 75-year-old female right shoulder pain. COMPARISON: None. TECHNIQUE: 3 views right shoulder, 4 images. FINDINGS: Moderate degenerative change acromioclavicular joint. Minimal narrowing glenohumeral joint. Negative for calcific bursitis. IMPRESSION: Degenerative changes not unusual for age at the acromioclavicular joint. Native Phone: Native Phone: CBCOrdered By: Roni Dahl on 01-09-2021 Hematocrit (Bld) [Volume fraction] 33.2 % Low 36 - 46 % Native Phone: Hemoglobin.gastrointe stinal spec 1 Ql (Stl) 11.5 g/dL Low 12.0 - 16.0 g/dL Native Phone: Interpretation and review of laboratory results Abnormal Native Phone: MCH (RBC) [Entitic mass] 31.6 pg 26 - 34 pg Native Phone: MCHC (RBC) [Mass/Vol] 34.7 g/dL 31 - 3 7 g/dL Native Phone: MCV (RBC) [Entitic vol] 91.2 fL 80 - 100 fL Native Phone: NRBC Automated NOT REPORTED per 100 WBC Native Phone: Platelet distribution width (Bld) [Ratio] 15.6 % High 12.1 - 15.2 % Native Phone: Platelet mean volume (Bld) [Entitic vol] NOT REPORTED 6.0 - 12.0 fL Native Phone: Platelets (Bld) [#/Vol] 223 10*3/uL Native Phone: RBC (Bld) [#/Vol] 3.64 10*6/uL Low 4.0 - 5.2 m/uL Native Phone: WBC (Bld) [#/Vol] 4.1 10*3/uL Native Phone: Native Phone: CBCOrdered By: Roni Dahl on 12-09-2020 Hematocrit (Bld) [Volume fraction] 34.2 % Low 36 - 46 % Native Phone: Hemoglobin.gastrointe stinal spec 1 Ql (Stl) 11.6 g/dL Low 12.0 - 16.0 g/dL Native Phone: Interpretation and review of laboratory results Abnormal Native Phone: MCH (RBC) [Entitic mass] 30.6 pg 26 - 34 pg Native Phone: MCHC (RBC) [Mass/Vol] 33.8 g/dL 31 - 3 7 g/dL Native Phone: MCV (RBC) [Entitic vol] 90.7 fL 80 - 100 fL Native Phone: NRBC Automated NOT REPORTED per 100 WBC Native Phone: Platelet distribution width (Bld) [Ratio] 14.1 % 12.1 - 15.2 % [facility] Work Phone: Platelet mean volume (Bld) [Entitic vol] NOT REPORTED 6.0 - 12.0 fL Native Phone: Platelets (Bld) [#/Vol] 365 10*3/uL [facility] Work Phone: RBC (Bld) [#/Vol] 3.78 10*6/uL Low 4.0 - 5.2 m/uL [facility] Work Phone: WBC (Bld) [#/Vol] 6.3 10*3/uL [facility] Work Phone: [facility] Work Phone: CBC Auto DifferentialOrdered By: Darryl Sandoval on 11-27-2020 [facility] Eos # 0.16 [facility] Work Phone: [facility] Immature Granulocyte 0.35 High [facility] Work Phone: [facility] Lymph # 1.23 [employer] [facility] Work Phone: [facility] [place] # 0.95 [facility] Work Phone: Basophils (Bld) [#/Vol] 10*3/uL [facility] Work Phone: Basophils/100 WBC (Bld) 0 % 0 - 2 % [facility] Work Phone: Differential Type NOT REPORTED [facility] Work Phone: Eosinophils/100 WBC (Bld) 2 % 1 - 4 % [facility] Work Phone: Hematocrit (Bld) [Volume fraction] 34.3 % Low 36.3 - 47.1 % [facility] Work Phone: Hemoglobin.gastrointe stinal spec 1 Ql (Stl) 11.0 g/dL Low 11.9 - 15.1 g/dL Native Phone: Immature granulocytes/100 WBC (Bld) 5 % High 0 Native Phone: Interpretation and review of laboratory results Abnormal Native Phone: Lymphocytes/100 WBC (Bld) 16 % Low 24 - 43 % Native Phone: MCH (RBC) [Entitic mass] 30.5 pg 25.2 - 33.5 pg Native Phone: MCHC (RBC) [Mass/Vol] 32.1 g/dL 28.4 - 34.8 g/dL Native Phone: MCV (RBC) [Entitic vol] 95.0 fL 82.6 - 102.9 fL Native Phone: Monocytes/100 WBC (Bld) 12 % 3 - 12 % Native Phone: NRBC Automated 0.0 0.0 per 100 WBC Native Phone: Platelet distribution width (Bld) [Ratio] 13.3 % 11.8 - 14.4 % Native Phone: Platelet Estimate NOT REPORTED Native Phone: Platelet mean volume (Bld) [Entitic vol] 9.7 fL 8.1 - 13.5 fL Native Phone: Platelets (Bld) [#/Vol] 242 10*3/uL Native Phone: RBC (Bld) [#/Vol] 3.61 10*6/uL Low 3.95 - 5.11 m/uL Native Phone: RBC (Bld) [#/Vol] NOT REPORTED Native Phone: Segmented neutrophils/100 WBC (Bld) 65 % 36 - 65 % Native Phone: Segs Absolute 5.07 [employer] Work Phone: WBC (Bld) [#/Vol] 7.8 10*3/uL Native Phone: WBC (Bld) [#/Vol] NOT REPORTED Native Phone: Native Phone: COVID-19, RapidOrdered By: Vazquez Sandoval on 11-27-2020 SARS-CoV-2 (COVID-19) RNA JUAQUIN+probe Ql (Unsp spec) Not detected Not Detected Native Phone: Comment on above: Rapid NAAT: The [...] management decisions. Fact sheet for Healthcare Providers: https://www.fda.gov/media/633752/download Fact sheet for Patients: https://www.fda.gov/media/672166/download Methodology: Isothermal Nucleic Acid Amplification Specimen Description .NASOPHARYNGEAL SWAB Native Phone: Native Phone: Comprehensive Metabolic Pane lOrdered By: Darryl Sandoval on 11-27-2020 Albumin [Mass/Vol] 3 g/dL Low 3.5 - 5.2 g/dL Native Phone: Albumin/Globulin [Mass ratio] 0.8 {ratio} Low Native Phone: ALP (Bld) [Catalytic activity/Vol] 154 U/L High 35 - 104 U/L Native Phone: ALT [Catalytic activity/Vol] 45 U/L High 5 - 33 U/L Native Phone: Anion gap [Moles/Vol] 11 mmol/L 9 - 17 mmol/L Native Phone: AST [Catalytic activity/Vol] 44 U/L High <32 Native Phone: Bilirubin [Mass/Vol] 0.35 mg/dL 0.3 - 1 .2 mg/dL Native Phone: Calcium [Mass/Vol] 9.4 mg/dL 8.6 - 10. 4 mg/dL Native Phone: Chloride [Moles/Vol] 103 mmol/L 98 - 10 7 mmol/L Native Phone: CO2 [Moles/Vol] 21 mmol/L 20 - 31 mmol/L Native Phone: Creatinine [Mass/Vol] 1 mg/dL High 0.50 - 0.90 mg/dL Native Phone: Free PSA/Total PSA [Mass fraction] 7.0 g/dL 6.4 - 8.3 g/dL Native Phone: GFR >60 >60 mL/min [employer] Phone: GFR Non- 54 mL/min Low >60 Native Phone: Glucose [Mass/Vol] 87 mg/dL 70 - 99 mg/dL Native Phone: Interpretation and review of laboratory results Abnormal Native Phone: Potassium [Moles/Vol] 4.1 mmol/L 3.7 - 5.3 mmol/L Native Phone: Sodium [Moles/Vol] 135 mmol/L 135 - 144 mmol/L Native Phone: Urea nitrogen (BldV) [Mass/Vol] 16 mg/dL 8 - 23 mg/dL Native Phone: Urea nitrogen/Creatinine (Bld) [Mass ratio] 16 Native Phone: Native Phone: Laboratory - Chemistry and C hemistry - challengeOrdered By: Darryl Sandoval on 11-27-2020 GFR/1.73 sq M.predicted MDRD (S/P/Bld) [Vol rate/Area] Native Phone: Comment on above: Average GFR for 70 o r more years old: 75 mL/min/1.73sq m Chronic Kidney Disease: <60 mL/min/1.73sq m Kidney failure: <15 mL/min/1.73sq m eGFR calculated using average adult body mass. Additional eGFR calculator available at: http://www.[employer] [place]/multiple_crcl_2011.htm Stage 1: Some kidney damage normal GFR Stage 2: Mild kidney damage GFR 60-89 Stage 3: Moderate kidney damage GFR 30-59 Stage 4: Severe kidney damage GFR 15-29 Stage 5: Severe kidney damage GFR <15 ESRD - chronic treatment by dialysis or transplant LipaseOrdered By: Darryl farias on 11-27-2020 Lipase [Catalytic activity/Vol] 24 U/L 13 - 60 U/L Native Phone: Native Phone: MagnesiumOrdered By: Darryl Sandoval on 11-27-2020 Magnesium [Mass/Vol] 2.3 mg/dL 1.6 - 2 .6 mg/dL Native Phone: Native Phone: Urinalysis with MicroscopicO rdered By: Darryl Sandoval on 11-27-2020 - [facility] [employer] Work Phone: Amorphous, UA NOT REPORTED None [facility] Work Phone: Bacteria, UA TRACE Abnormal None [facility] Work Phone: Bilirubin Urine Negative NEGATIVE [facility] Work Phone: Casts UA NOT REPORTED /LPF [facility] [employer] Work Phone: Color, UA YELLOW YELLOW [facility] Work Phone: Crystals, UA NOT REPORTED None /HPF [facility] Work Phone: Epithelial Cells UA 2 TO 5 [facility] Work Phone: Glucose, Ur Negative NEGATIVE [facility] Work Phone: Interpretation and review of laboratory results Abnormal [facility] Work Phone: Ketones Ql (U) Negative NEGATIVE [facility] Work Phone: Leukocyte esterase Test strip Ql (U) Negative NEGATIVE [facility] Work Phone: Mucus, UA TRACE Abnormal None [facility] Work Phone: Nitrite, Urine Negative NEGATIVE [facility] Work Phone: Other Observations UA NOT REPORTED NOT REQ. M [facility] [employer] Work Phone: pH, UA 6.0 [facility] Work Phone: Protein, UA Negative NEGATIVE [facility] Work Phone: RBC, UA 2 TO 5 [facility] Work Phone: Renal Epithelial, UA NOT REPORTED 0 /HPF [facility] Work Phone: Specific [place], UA 1.025 High [facility] [employer] Work Phone: Trichomonas, UA NOT REPORTED None [facility] Work Phone: Turbidity UA CLEAR CLEAR [facility] Work Phone: Urinalysis Comments NOT REPORTED [facility] [employer] Work Phone: Urine Hgb 1+ Abnormal NEGATIVE [facility] Work Phone: Urobilinogen, Urine Normal Normal [facility] Phone: WBC, UA 0 TO 2 [facility] Work Phone: Yeast, UA NOT REPORTED None [facility] Work Phone: [facility] Work Phone: Comprehensive Metabolic Pane lOrdered By: Roni Dahl on 11-22-2020 Albumin [Mass/Vol] 3.5 g/dL 3.5 - 5.2 g/dL Native Phone: Albumin/Globulin Ratio NOT REPORTED [facility] Phone: ALP (Bld) [Catalytic activity/Vol] 67 U/L 35 - 104 U/L [facility] Work Phone: ALT [Catalytic activity/Vol] 22 U/L 5 - 33 U/L Native Phone: Anion gap [Moles/Vol] 7 mmol/L Low 9 - 17 mmol/L Native Phone: AST [Catalytic activity/Vol] 21 U/L <32 Native Phone: Bilirubin [Mass/Vol] 0.35 mg/dL 0.30 - 1.20 mg/dL Native Phone: Calcium [Mass/Vol] 8.9 mg/dL 8.6 - 10. 4 mg/dL Native Phone: Chloride [Moles/Vol] 103 mmol/L 98 - 10 7 mmol/L Native Phone: CO2 [Moles/Vol] 26 mmol/L 20 - 31 mmol/L [facility] Work Phone: Creatinine [Mass/Vol] 0.98 mg/dL High 0.50 - 0.90 mg/dL Native Phone: Free PSA/Total PSA [Mass fraction] 6.3 g/dL Low 6.4 - 8.3 g/dL Native Phone: GFR >60 >60 mL/min [employer] Phone: GFR Non- 55 mL/min Low >60 Native Phone: GFR/1.73 sq M.predicted MDRD (S/P/Bld) [Vol rate/Area] Native Phone: Comment on above: Average GFR for 70 o r more years old: 75 mL/min/1.73sq m Chronic Kidney Disease: <60 mL/min/1.73sq m Kidney failure: <15 mL/min/1.73sq m eGFR calculated using average adult body mass. Additional eGFR calculator available at: http://www.[employer] [place]/multiple_crcl_2012.htm GFR/1.73 sq M.predicted MDRD (S/P/Bld) [Vol rate/Area] NOT REPORTED Native Phone: Glucose [Mass/Vol] 94 mg/dL 70 - 99 mg/dL Native Phone: Interpretation and review of laboratory results Abnormal Native Phone: Potassium [Moles/Vol] 3.3 mmol/L Low 3.7 - 5.3 mmol/L Native Phone: Sodium [Moles/Vol] 136 mmol/L 135 - 144 mmol/L Native Phone: Urea nitrogen (BldV) [Mass/Vol] 16 mg/dL 8 - 23 mg/dL Native Phone: Urea nitrogen/Creatinine (Bld) [Mass ratio] 16 Native Phone: Native Phone: AmylaseOrdered By: Naida estrada on 11-18-2020 Amylase [Catalytic activity/Vol] 141 U/L High 28 - 100 U/L Native Phone: Interpretation and review of laboratory results Abnormal Native Phone: Basic Metabolic PanelOrdered By: Naida Grissom on 11-18-2020 Anion gap [Moles/Vol] 10 mmol/L 9 - 17 mmol/L Native Phone: Calcium [Mass/Vol] 8.9 mg/dL 8.6 - 10. 4 mg/dL Native Phone: Chloride [Moles/Vol] 105 mmol/L 98 - 10 7 mmol/L Native Phone: CO2 [Moles/Vol] 21 mmol/L 20 - 31 mmol/L Native Phone: Creatinine [Mass/Vol] 1.06 mg/dL High 0.50 - 0.90 mg/dL Native Phone: GFR >60 >60 mL/min [employer] Phone: GFR Non- 51 mL/min Low >60 Native Phone: GFR/1.73 sq M.predicted MDRD (S/P/Bld) [Vol rate/Area] Native Phone: Comment on above: Average GFR for 70 o r more years old: 75 mL/min/1.73sq m Chronic Kidney Disease: <60 mL/min/1.73sq m Kidney failure: <15 mL/min/1.73sq m eGFR calculated using average adult body mass. Additional eGFR calculator available at: http://www.[employer]/multiple_crcl_2012.htm GFR/1.73 sq M.predicted MDRD (S/P/Bld) [Vol rate/Area] NOT REPORTED [facility] Work Phone: Glucose [Mass/Vol] 139 mg/dL High 70 - 99 mg/dL [facility] Work Phone: Interpretation and review of laboratory results Abnormal [facility] Work Phone: Potassium [Moles/Vol] 3.4 mmol/L Low 3.7 - 5.3 mmol/L [facility] Work Phone: Sodium [Moles/Vol] 136 mmol/L 135 - 144 mmol/L [facility] [place] Work Phone: Urea nitrogen (BldV) [Mass/Vol] 22 mg/dL 8 - 23 mg/dL [facility] Work Phone: Urea nitrogen/Creatinine (Bld) [Mass ratio] 21 High [facility] Work Phone: [facility] [place] Work Phone: CBC auto differentialOrdered By: Naida Grissom on 11-18-2020 Absolute Eos # 0.10 [facility] Work Phone: Absolute Immature Granulocyte NOT REPORTED [facility] Work Phone: Absolute Lymph # 0.60 Low [facility] Work Phone: Absolute [place] # 0.40 [facility] Work Phone: Basophils (Bld) [#/Vol] 0.00 10*3/uL [facility] Work Phone: Basophils/100 WBC (Bld) 0 % 0 - 2 % [facility] Work Phone: Differential Type YES [facility] Work Phone: Eosinophils/100 WBC (Bld) 1 % 0 - 5 % [facility] Work Phone: Hematocrit (Bld) [Volume fraction] 37.6 % 36 - 46 % [facility] Work Phone: Hemoglobin.gastrointe stinal spec 1 Ql (Stl) 12.9 g/dL 12.0 - 16.0 g/dL Native Phone: Immature Granulocytes NOT REPORTED 0 % [employer] Phone: Interpretation and review of laboratory results Abnormal Native Phone: Lymphocytes/100 WBC (Bld) 8 % Low 15 - 40 % Native Phone: MCH (RBC) [Entitic mass] 31.8 pg 26 - 34 pg Native Phone: MCHC (RBC) [Mass/Vol] 34.4 g/dL 31 - 3 7 g/dL Native Phone: MCV (RBC) [Entitic vol] 92.4 fL 80 - 100 fL Native Phone: Monocytes/100 WBC (Bld) 6 % 4 - 8 % Native Phone: NRBC Automated NOT REPORTED per 100 WBC Native Phone: Platelet distribution width (Bld) [Ratio] 14.1 % 12.1 - 15.2 % Native Phone: Platelet Estimate NOT REPORTED Native Phone: Platelet mean volume (Bld) [Entitic vol] NOT REPORTED 6.0 - 12.0 fL Native Phone: Platelets (Bld) [#/Vol] 179 10*3/uL Native Phone: RBC (Bld) [#/Vol] 4.07 10*6/uL 4.0 - 5.2 m/uL Native Phone: RBC (Bld) [#/Vol] NOT REPORTED Native Phone: Segmented neutrophils/100 WBC (Bld) 85 % High 47 - 75 % Native Phone: Segs Absolute 5.80 [employer] Work Phone: WBC (Bld) [#/Vol] 6.9 10*3/uL [facility] Work Phone: WBC (Bld) [#/Vol] NOT REPORTED Native Phone: [facility] [place] Work Phone: Hepatic Function PanelOrdere d By: Naida Grissom on 11-18-2020 Albumin [Mass/Vol] 3.7 g/dL 3.5 - 5.2 g/dL Native Phone: Albumin/Globulin Ratio NOT REPORTED Native Phone: ALP (Bld) [Catalytic activity/Vol] 84 U/L 35 - 104 U/L Native Phone: ALT [Catalytic activity/Vol] 63 U/L High 5 - 33 U/L Native Phone: AST [Catalytic activity/Vol] 104 U/L High <32 Native Phone: Bilirubin [Mass/Vol] 0.49 mg/dL 0.30 - 1.20 mg/dL Native Phone: Bilirubin, Indirect CANNOT BE CALCULATED 0.00 - 1.00 mg/dL Native Phone: Bilirubin.indirect [Mass/Vol] mg/dL <0.31 mg/dL Native Phone: Free PSA/Total PSA [Mass fraction] 6.9 g/dL 6.4 - 8.3 g/dL Native Phone: Globulin NOT REPORTED 1.5 - 3.8 g/dL Native Phone: Interpretation and review of laboratory results Abnormal Native Phone: [facility] [place] Work Phone: LipaseOrdered By: Naida field on 11-18-2020 Lipase [Catalytic activity/Vol] 50 U/L 13 - 60 U/L [facility] Work Phone: Microscopic UrinalysisOrdere d By: Naida Grissom on 11-18-2020 - [facility] Work Phone: Amorphous, UA NOT REPORTED None [facility] Work Phone: Bacteria, UA 1+ Abnormal None [facility] Work Phone: Casts UA NOT REPORTED /LPF [facility] Work Phone: Crystals, UA NOT REPORTED None /HPF [facility] Work Phone: Epithelial Cells UA 0 TO 2 /HPF [facility] Work Phone: Mucus, UA NOT REPORTED None [facility] Work Phone: Other Observations UA NOT REPORTED NOT REQ. M [facility] Work Phone: RBC, UA 0 TO 2 [facility] Work Phone: Renal Epithelial, UA NOT REPORTED 0 /HPF [facility] Work Phone: Trichomonas, UA NOT REPORTED None [facility] Work Phone: WBC, UA 2 TO 5 0 /HPF [facility] Work Phone: Yeast, UA NOT REPORTED None [facility] Work Phone: No Panel InformationOrdered By: Naida Grissom on 11-18-2020 Interpretation and review of laboratory results Abnormal [facility] Work Phone: [facility] Work Phone: [facility] Work Phone: Urinalysis, reflex to micros copicOrdered By: Naida Grissom on 11-18-2020 Bilirubin Urine Negative NEGATIVE [facility] Work Phone: Color, UA ATRA Abnormal YELLOW [facility] Work Phone: Glucose, Ur Negative NEGATIVE [facility] Work Phone: Ketones Ql (U) Negative NEGATIVE [facility] Work Phone: Leukocyte esterase Test strip Ql (U) 1+ Abnormal NEGATIVE [facility] Work Phone: Nitrite, Urine Negative NEGATIVE [facility] Work Phone: pH, UA 5.0 [facility] Work Phone: Protein, UA Negative NEGATIVE [facility] Work Phone: Specific Milner, UA 1.025 [employer] Work Phone: Turbidity UA CLEAR CLEAR [facility] Work Phone: Urinalysis Comments [facility] Work Phone: Urine Hgb 1+ Abnormal NEGATIVE [facility] Work Phone: Urobilinogen, Urine Normal Normal [facility] Work Phone: CBC Auto Differentialon 08-01 Basophils (Bld) [#/Vol] 0.00 10*3/uL [facility] Work Phone: Basophils/100 WBC (Bld) 0 % 0 - 2 % [facility] Work Phone: Differential Type YES [facility] Work Phone: Eosinophils (Bld) [#/Vol] 0.10 10*3/uL [facility] Work Phone: Eosinophils/100 WBC (Bld) 2 % 0 - 5 % [facility] Work Phone: Erythrocyte distribution width (RBC) [Ratio] 14.3 % 12.1 - 15.2 % [facility] Work Phone: Hematocrit (Bld) [Volume fraction] 36.5 % 36 - 46 % [facility] Work Phone: Hemoglobin (Bld) [Mass/Vol] 12.3 g/dL 12 - 16 g/dL Native Phone: Interpretation and review of laboratory results Abnormal Native Phone: Lymphocytes (Bld) [#/Vol] 1.20 10*3/uL [facility] Work Phone: Lymphocytes/100 WBC (Bld) 24 % 15 - 40 % Native Phone: MCH (RBC) [Entitic mass] 32.7 pg 26 - 34 pg [facility] Work Phone: MCHC (RBC) [Mass/Vol] 33.9 g/dL 31 - 3 7 g/dL Native Phone: MCV (RBC) [Entitic vol] 96.6 fL 80 - 100 fL Native Phone: Monocytes (Bld) [#/Vol] 0.50 10*3/uL Native Phone: Monocytes/100 WBC (Bld) 9 % High 4 - 8 % [facility] Work Phone: Platelet mean volume (Bld) [Entitic vol] NOT REPORTED 6 - 12 fL Native Phone: Platelets (Bld) [#/Vol] NOT REPORTED Native Phone: Platelets (Bld) [#/Vol] 223 10*3/uL Native Phone: RBC (Bld) [#/Vol] 3.77 10*6/uL Low 4 - 5.2 m/uL Native Phone: RBC morphology finding Nom (Bld) NOT REPORTED Native Phone: Segmented neutrophils/100 WBC (Bld) 65 % 47 - 75 % [facility] Work Phone: Segs Absolute 3.30 [employer] Work Phone: WBC (Bld) [#/Vol] 5.1 10*3/uL Native Phone: WBC (Bld) [#/Vol] NOT REPORTED per 100 WBC Native Phone: WBC Morphology NOT REPORTED [employer] Work Phone: Comprehensive Metabolic Pane trevor 08-11-2020 Albumin [Mass/Vol] 3.9 g/dL 3.5 - 5.2 g/dL Native Phone: Albumin/Globulin [Mass ratio] NOT REPORTED Native Phone: ALP [Catalytic activity/Vol] 76 U/L 35 - 104 U/L Native Phone: ALT [Catalytic activity/Vol] 16 U/L 5 - 33 U/L Native Phone: Anion gap [Moles/Vol] 10 mmol/L 9 - 17 mmol/L [facility] Work Phone: AST [Catalytic activity/Vol] 19 U/L <32 Native Phone: Bilirubin Ql (U) 0.35 mg/dL 0.3 - 1.2 mg/dL Native Phone: Bun/Cre Ratio 23 High [facility] Work Phone: Calcium [Mass/Vol] 9.9 mg/dL 8.6 - 10. 4 mg/dL [facility] Work Phone: Chloride [Moles/Vol] 105 mmol/L 98 - 10 7 mmol/L Native Phone: CO2 [Moles/Vol] 25 mmol/L 20 - 31 mmol/L Native Phone: Creatinine [Mass/Vol] 1.14 mg/dL High 0.5 - 0.9 mg/dL Native Phone: GFR 56 mL/min Low >60 [employer] Phone: GFR Non- 46 mL/min Low >60 Native Phone: GFR/1.73 sq M predicted among non-blacks MDRD (S/P/Bld) [Vol rate/Area] Native Phone: Comment on above: Average GFR for 70 o r more years old: 75 mL/min/1.73sq m Chronic Kidney Disease: <60 mL/min/1.73sq m Kidney failure: <15 mL/min/1.73sq m eGFR calculated using average adult body mass. Additional eGFR calculator available at: http://www.[employer] [place]/multiple_crcl_2012.htm GFR/1.73 sq M predicted among non-blacks MDRD (S/P/Bld) [Vol rate/Area] NOT REPORTED Native Phone: Glucose [Mass/Vol] 98 mg/dL 70 - 99 mg/dL Native Phone: Interpretation and review of laboratory results Abnormal Native Phone: Potassium [Moles/Vol] 4.3 mmol/L 3.7 - 5.3 mmol/L Native Phone: Protein [Mass/Vol] 6.7 g/dL 6.4 - 8.3 g/dL Native Phone: Sodium [Moles/Vol] 140 mmol/L 135 - 144 mmol/L Native Phone: Urea nitrogen [Mass/Vol] 26 mg/dL High 8 - 23 mg/dL Native Phone: Lipid Panelon 08-11-2020 Cholesterol [Mass/Vol] 126 mg/dL <200 Native Phone: Comment on above: Cholesterol Guidelines: <200 Desirable 200-240 Borderline >240 Undesirable Cholesterol in HDL [Mass/Vol] 45 mg/dL >40 Native Phone: Comment on above: HDL Guidelines: <40 Undesirable 40-59 Borderline >59 Desirable Cholesterol in LDL [Mass/Vol] 62 mg/dL 0 - 130 mg/dL Native Phone: Comment on above: LDL Guidelines: <100 Desirable 100-129 Near to/above Desirable 130-159 Borderline >159 Undesirable Direct (measured) LDL and calculated LDL are not interchangeable tests. Cholesterol in VLDL [Mass/Vol] NOT REPORTED 1 - 30 mg/dL Native Phone: Cholesterol.total/Cho lesterol in HDL [Mass ratio] 2.8 {ratio} <5 Native Phone: Triglyceride [Mass/Vol] 94 mg/dL <150 Native Phone: Comment on above: Triglyceride Guidelines: <150 Desirable 150-199 Borderline 200-499 High >499 Very high Based on AHA Guidelines for fasting triglyceride, March 2012. Magnesiumon 08-11-2020 Magnesium [Mass/Vol] 2.1 mg/dL 1.6 - 2 .6 mg/dL Native Phone: Otheron 08-11-2020 Immature granulocytes (Bld) [#/Vol] NOT REPORTED Native Phone: Patient Fasting?on 1 Patient Fasting? yes [employer] Social Phone: TSH with Reflexon 08-11-2020 TSH Qn 2.05 m[IU]/L Native Phone: Vitamin D 25 Hydroxyon 08-11 Vit D, 25-Hydroxy 50.9 ng/mL 30 - 100 ng/mL Native Phone: Comment on above: Reference Range: Vitamin D status Range Deficiency <20 ng/mL Mild Deficiency 20-30 ng/mL Sufficiency 30-100 ng/mL Toxicity >100 ng/mL CBC Auto Differentialon 10-0 Basophils (Bld) [#/Vol] 0.00 10*3/uL [place] Basophils/100 WBC (Bld) 1 % 0 - 2 % [place] Differential Type YES [facility] [place] Eosinophils (Bld) [#/Vol] 0.10 10*3/uL [place] Eosinophils/100 WBC (Bld) 1 % 0 - 5 % [place] Erythrocyte distribution width (RBC) [Ratio] 14.2 % 12.1 - 15.2 % [place] Hematocrit (Bld) [Volume fraction] 37.4 % 36 - 46 % [place] Hemoglobin (Bld) [Mass/Vol] 12.4 g/dL 12 - 16 g/dL [place] Interpretation and review of laboratory results Abnormal [place] Lymphocytes (Bld) [#/Vol] 1.50 10*3/uL [place] Lymphocytes/100 WBC (Bld) 24 % 15 - 40 % [place] MCH (RBC) [Entitic mass] 32.1 pg 26 - 34 pg [place] MCHC (RBC) [Mass/Vol] 33.2 g/dL 31 - 3 7 g/dL [place] MCV (RBC) [Entitic vol] 96.7 fL 80 - 100 fL [place] Monocytes (Bld) [#/Vol] 0.50 10*3/uL [place] Monocytes/100 WBC (Bld) 9 % High 4 - 8 % [place] Platelet mean volume (Bld) [Entitic vol] NOT REPORTED 6 - 12 fL [place] Platelets (Bld) [#/Vol] 205 10*3/uL [place] Platelets (Bld) [#/Vol] NOT REPORTED [place] RBC (Bld) [#/Vol] 3.87 10*6/uL Low 4 - 5.2 m/uL [place] RBC morphology finding Nom (Bld) NOT REPORTED [place] Segmented neutrophils/100 WBC (Bld) 65 % 47 - 75 % [place] Segs Absolute 4.10 [place] WBC (Bld) [#/Vol] NOT REPORTED per 100 WBC [place] WBC (Bld) [#/Vol] 6.2 10*3/uL [place] WBC Morphology NOT REPORTED [place], [place] CT Head WO Contraston 2019 CT [...] by noncontrast CT. There is intracranial atherosclerosis. [place] Magdiel, Mhpn Incoming R adiant Results From Nor1/[employer]ent[employer] - 03/31/2020 4:[address] head [...] MRI would be recommended for further evaluation. [place] 1. No acute intracra nial abnormality. 2. Stable chronic small vessel ischemic disease. 3. Intracranial atherosclerosis. If the patient has a focal neurologic deficit or there is clinical suspicion for acute cerebrovascular accident, brain MRI would be recommended for further evaluation. [place] Comprehensive Metabolic Pane l w/ Reflex to MGon 03-31-2020 Albumin [Mass/Vol] 4.2 g/dL 3.5 - 5.2 g/dL [place] Albumin/Globulin [Mass ratio] NOT REPORTED [place] ALP [Catalytic activity/Vol] 75 U/L 35 - 104 U/L [place] ALT [Catalytic activity/Vol] 11 U/L 5 - 33 U/L [place] Anion gap [Moles/Vol] 8 mmol/L Low 9 - 17 mmol/L [place] AST [Catalytic activity/Vol] 17 U/L <32 [place] Bilirubin Ql (U) 0.38 mg/dL 0.3 - 1.2 mg/dL [place] Bun/Cre Ratio 21 High [place], [place] Calcium [Mass/Vol] 9.1 mg/dL 8.6 - 10. 4 mg/dL [place] Chloride [Moles/Vol] 98 mmol/L 98 - 10 7 mmol/L [place] CO2 [Moles/Vol] 28 mmol/L 20 - 31 mmol/L [place] Creatinine [Mass/Vol] 1.04 mg/dL High 0.5 - 0.9 mg/dL [place] GFR >60 >60 mL/min [place] GFR Non- 52 mL/min Low >60 [place] GFR/1.73 sq M predicted among non-blacks MDRD (S/P/Bld) [Vol rate/Area] [place] Comment on above: Average GFR for 70 o r more years old: 75 mL/min/1.73sq m Chronic Kidney Disease: <60 mL/min/1.73sq m Kidney failure: <15 mL/min/1.73sq m eGFR calculated using average adult body mass. Additional eGFR calculator available at: http://www.[employer] [place]/multiple_crcl_2012.htm GFR/1.73 sq M predicted among non-blacks MDRD (S/P/Bld) [Vol rate/Area] NOT REPORTED [place] Glucose [Mass/Vol] 94 mg/dL 70 - 99 mg/dL [place] Interpretation and review of laboratory results Abnormal [place] Potassium [Moles/Vol] 4.2 mmol/L 3.7 - 5.3 mmol/L [place] Protein [Mass/Vol] 7.1 g/dL 6.4 - 8.3 g/dL [place] Sodium [Moles/Vol] 134 mmol/L Low 135 - 144 mmol/L [place] Urea nitrogen [Mass/Vol] 22 mg/dL 8 - 23 mg/dL [place] Microscopic Urinalysison Amorphous, UA NOT REPORTED None [place], [place] Bacteria, UA NOT REPORTED None [place] Casts UA NOT REPORTED /LPF [place] Crystals, UA NOT REPORTED None /HPF [place] Epithelial Cells UA 0 TO 2 /HPF [place] Mucus, UA NOT REPORTED None [place] Other Observations UA NOT REPORTED NOT REQ. M [place], [place] RBC (U) [#/Vol] 2 TO 5 [place] Renal Epithelial, UA NOT REPORTED 0 /HPF [place] Trichomonas, UA NOT REPORTED None [facility] [place] WBC, UA 0 TO 2 0 /HPF [place] Yeast, UA NOT REPORTED None [place] - [place] Otheron 03-31-2020 Immature granulocytes (Bld) [#/Vol] NOT REPORTED 0 % [place] TSH with Reflexon 03-31-2020 TSH Qn 1.98 m[IU]/L [place] Troponinon 03-31-2020 Troponin I.cardiac [Mass/Vol] [place] Comment on above: Reference Range: <0.03 [...] diagnosis. Troponin T.cardiac [Mass/Vol] ug/L <0.03 ng/mL [place] Comment on above: Troponin T results c annot be compared to Troponin-I results. Troponin, High Sensitivity NOT REPORTED 0 - 14 ng/L [place] Urinalysis, reflex to micros copicon 03-31-2020 Bilirubin Urine Negative NEGATIVE [place] Color, UA YELLOW YELLOW [place], [place] Glucose, Ur Negative NEGATIVE [place] Interpretation and review of laboratory results Abnormal [place] Ketones Ql (U) Negative NEGATIVE [place] Leukocyte esterase Test strip Ql (U) Negative NEGATIVE [place] Nitrite, Urine Negative NEGATIVE [place] pH, UA 7.0 [place] Protein (U) [Mass/Vol] Negative NEGATIVE [place] Specific Milner, UA 1.005 [place], [place] Turbidity UA CLEAR CLEAR [place] Urinalysis Comments [place] Urine Hgb TRACE Abnormal NEGATIVE [place] Urobilinogen, Urine Normal Normal [place] XR CHEST PORTABLEon 03-31-20 20 Negative chest. [place] Magdiel, Mhpn Incoming R adiant Results From Nor1/[employer] - 03/31/2020 2:47 PM EDT EXAM: XR CHEST PORTABLE HISTORY: Reason for exam:->gen weakness 74-year-old female COMPARISON: Chest 07/07/2019 TECHNIQUE: AP portable chest 1424 hours FINDINGS: Heart size normal. Lungs clear. Bony thorax and upper abdomen normal. IMPRESSION: Negative chest. Reedsy DELONTE EXAM: XR CHEST STARLA BLE HISTORY: Reason for exam:->gen weakness 74-year-old female COMPARISON: Chest 07/07/2019 TECHNIQUE: AP portable chest 1424 hours FINDINGS: Heart size normal. Lungs clear. Bony thorax and upper abdomen normal. [employer] CBC Auto DifferentialOrdered By: Reagan Pascal on 07-07-2019 Absolute [employer] # 0.10 [facility] Work Phone: Absolute Immature Granulocyte NOT REPORTED [facility] Work Phone: Absolute Lymph # 1.20 [facility] Work Phone: Absolute [place] # 0.40 [facility] Work Phone: Basophils (Bld) [#/Vol] 0.00 10*3/uL [facility] Work Phone: Basophils/100 WBC (Bld) 0 % 0 - 2 % [facility] Work Phone: Differential Type YES [facility] Work Phone: Eosinophils/100 WBC (Bld) 2 % 0 - 5 % Native Phone: Erythrocyte distribution width (RBC) [Ratio] 14.6 % 12.1 - 15.2 % Native Phone: Hematocrit (Bld) [Volume fraction] 35.9 % Low 36 - 46 % [facility] Work Phone: Hemoglobin (Bld) [Mass/Vol] 12.2 g/dL 12 - 16 g/dL Native Phone: Immature Granulocytes NOT REPORTED 0 % [employer] Work Phone: Interpretation and review of laboratory results Abnormal Native Phone: Lymphocytes/100 WBC (Bld) 28 % 15 - 40 % [facility] Work Phone: MCH (RBC) [Entitic mass] 33.2 pg 26 - 34 pg [facility] Work Phone: MCHC (RBC) [Mass/Vol] 34.1 g/dL 31 - 3 7 g/dL [facility] Work Phone: MCV (RBC) [Entitic vol] 97.3 fL 80 - 100 fL [facility] Work Phone: Monocytes/100 WBC (Bld) 10 % High 4 - 8 % [facility] Work Phone: MPV NOT REPORTED 6 - 12 fL [facility] Work Phone: NRBC Automated NOT REPORTED per 100 WBC Native Phone: Platelet Estimate NOT REPORTED [facility] Work Phone: Platelets (Bld) [#/Vol] 223 10*3/uL [facility] Work Phone: RBC (Bld) [#/Vol] 3.69 10*6/uL Low 4 - 5.2 m/uL [facility] Work Phone: RBC morphology finding Nom (Bld) NOT REPORTED [facility] Work Phone: Segmented neutrophils/100 WBC (Bld) 60 % 47 - 75 % [facility] Work Phone: Segs Absolute 2.60 [facility] Work Phone: WBC (Bld) [#/Vol] 4.4 10*3/uL [facility] Work Phone: WBC Morphology NOT REPORTED [facility] Work Phone: Comprehensive Metabolic Pane lOrdered By: Reagan Pascal on 07-07-2019 Albumin [Mass/Vol] 4.2 g/dL 3.5 - 5.2 g/dL [facility] Work Phone: Albumin/Globulin Ratio NOT REPORTED Native Phone: ALP [Catalytic activity/Vol] 66 U/L 35 - 104 U/L Native Phone: ALT [Catalytic activity/Vol] 9 U/L 5 - 33 U/L Native Phone: Anion gap [Moles/Vol] 14 mmol/L 9 - 17 mmol/L Native Phone: AST [Catalytic activity/Vol] 17 U/L <32 Native Phone: Bilirubin [Mass/Vol] 0.32 mg/dL 0.3 - 1 .2 mg/dL Native Phone: Bun/Cre Ratio 17 [employer] Work Phone: Calcium [Mass/Vol] 10.2 mg/dL 8.6 - 10. 4 mg/dL Native Phone: Chloride [Moles/Vol] 103 mmol/L 98 - 10 7 mmol/L Native Phone: CO2 [Moles/Vol] 24 mmol/L 20 - 31 mmol/L Native Phone: Creatinine [Mass/Vol] 1.26 mg/dL High 0.5 - 0.9 mg/dL Native Phone: GFR 50 mL/min Low >60 [employer] Phone: GFR Comment Native Phone: Comment on above: Average GFR for 70 o r more years old: 75 mL/min/1.73sq m Chronic Kidney Disease: <60 mL/min/1.73sq m Kidney failure: <15 mL/min/1.73sq m eGFR calculated using average adult body mass. Additional eGFR calculator available at: http://www.[employer]/multiple_crcl_2012.htm GFR Non- 42 mL/min Low >60 Native Phone: GFR Staging NOT REPORTED [employer] Work Phone: Glucose [Mass/Vol] 106 mg/dL High 70 - 99 mg/dL Native Phone: Interpretation and review of laboratory results Abnormal Native Phone: Potassium [Moles/Vol] 3.8 mmol/L 3.7 - 5.3 mmol/L Native Phone: Protein [Mass/Vol] 7.4 g/dL 6.4 - 8.3 g/dL Native Phone: Sodium [Moles/Vol] 141 mmol/L 135 - 144 mmol/L Native Phone: Urea nitrogen [Mass/Vol] 22 mg/dL 8 - 23 mg/dL Native Phone: Lipid PanelOrdered By: Reagan Pascal on 07-07-2019 Cholesterol [Mass/Vol] 169 mg/dL <200 Native Phone: Comment on above: Cholesterol Guidelines: <200 Desirable 200-240 Borderline >240 Undesirable Cholesterol in HDL [Mass/Vol] 54 mg/dL >40 Native Phone: Comment on above: HDL Guidelines: <40 Undesirable 40-59 Borderline >59 Desirable Cholesterol in LDL [Mass/Vol] 91 mg/dL 0 - 130 mg/dL Native Phone: Comment on above: LDL Guidelines: <100 Desirable 100-129 Near to/above Desirable 130-159 Borderline >159 Undesirable Direct (measured) LDL and calculated LDL are not interchangeable tests. Cholesterol.total/Cho lesterol in HDL [Mass ratio] 3.1 {ratio} <5 Native Phone: Triglyceride [Mass/Vol] 118 mg/dL <150 Native Phone: Comment on above: Triglyceride Guidelines: <150 Desirable 150-199 Borderline 200-499 High >499 Very high Based on AHA Guidelines for fasting triglyceride, March 2012. VLDL NOT REPORTED 1 - 30 mg/dL Native Phone: MagnesiumOrdered By: Reagan borja on 07-07-2019 Magnesium [Mass/Vol] 2.4 mg/dL 1.6 - 2 .6 mg/dL Native Phone: Patient Fasting?Ordered By: Reagan Pascal on 07-07-2019 Patient Fasting? yes [employer] Social Phone: TSH with ReflexOrdered By: Jose Carlos Pascal on 07-07-2019 TSH Qn 2.66 m[IU]/L Native Phone: Vitamin D 25 HydroxyOrdered By: Reagan Pascal on 07-07-2019 Vit D, 25-Hydroxy 76.8 ng/mL 30 - 100 ng/mL Native Phone: Comment on above: Reference Range: Vitamin D status Range Deficiency <20 ng/mL Mild Deficiency 20-30 ng/mL Sufficiency 30-100 ng/mL Toxicity >100 ng/mL XR CHEST STANDARD (2 VW)Orde red By: Reagan Pascal on 07-07-2019 Stable chest compare d to 05/30/2019. Native Phone: EXAM: XR CHEST (2 VW ) HISTORY: Reason for exam:->htn 73-year-old female. COMPARISON: Prior studies, most recent being a two-view chest 05/30/2019 TECHNIQUE: Two-view chest FINDINGS: Surgical clips right upper quadrant abdomen. Heart size normal. Lungs clear. Minimal degenerative change thoracic spine. Native Phone: Magdiel, Mhpn Incoming R adiant Results From Nor1/[employer]ent[employer] - 07/07/2019 10:15 AM EST EXAM: XR CHEST (2 VW) HISTORY: Reason for exam:->htn 73-year-old female. COMPARISON: Prior studies, most recent being a two-view chest 05/30/2019 TECHNIQUE: Two-view chest FINDINGS: Surgical clips right upper quadrant abdomen. Heart size normal. Lungs clear. Minimal degenerative change thoracic spine. IMPRESSION: Stable chest compared to 05/30/2019. Native Phone: Clostridium Difficile Toxin/ AntigenOrdered By: Roni Dhal on 04-23-2019 C DIFF AG + TOXIN Negative NEGATIVE [place] [facility] Comment on above: No C. difficile anti gen and Toxin Detected. Specimen Description .FECES DELONTE Stuarton 03-10-2018 CNOV Office Visit (SPNSMN) MARY JANE RIOS ([id number]) 1945 [facility] Time Provider Department03/10/18 9:55 AM ANDREWS FISH [facility] During your visit today, we recorded the following information about you: Pulse Respiration Blood pressure Weight 69/minute 18/minute 130/77 102.1 kg Height 1.626 Jamaica Fish MD 03/10/2018 10:50 AM [facility] SURGERY OUTPATIENT CONSULTSERVICE DATE: 03/10/2018PCP: JOHANNA AnneEFCITLALI PROVIDER:Lanie Prince, [id number] [id number] requested for an opinion regarding the evaluation [...] : 10:44 AM PAGER:Referring Provider: LANIE PRINCE [[id number]]Allergies As of Date: 03/10/2018 Noted Allergy ReactionGLUTEN FLOUR 03/10/2018 8 - GI Upset 9 - ItchingLEXAPRO (ESCITALOPRAM OXALATE) 08/19/2007 9 - ItchingMORPHINE 07/04/2007SULFA (SULFONAMIDE ANTIBIOTICS) 07/04/2007Date Reviewed: 03/10/2018Reviewed by: Alanna Chang Ma - Fully AssessedReason for Visit: New Patient [172]Primary Visit Diagnosis:Degenerative scoliosis [M41.9]Order(s):XR LUMBAR LIMITED 2V AP/LAT [[id number]] Order #: [id number] FUTUREPrescriptions as of 03/10/2018 Sig: ASPIRIN 81 [...] 10 MG TABLET take with migraines * ASLHY-MAG ZINC II ORAL SUSPENSI* take one tablet dailyProblem List As Of Date: 03/10/2018(None) Status:Closed by ANDREWS FISH MD on 03/10/18 Normal [facility] PROGRESSon 03-10-2018 Protein mass conc HNO ID: [id number] thor: Katelin Hollingsworth RtService: (none)Author Type: (none)Type: Progress NotesFiled: 03/10/2018 11:05 AMNote Text: Radiology Service Progress NotePATIENT NAME: Mary Jane SinghRN: [id number] OF SERVICE: March 10, 2018TIME: 11:04 AMPATIENT IDENTITY VERIFICATION COMPLETED USING TWO (2) METHODS: Patientconfirmed name verbally and Date of .PATIENT GENDER DATA: Female. status: : NoBreastfeeding status: NO.PATIENT RELEVANT IMPLANT DATA REVIEWED: Not ApplicableRADIOLOGY DEPARTMENT: General X-ray: Exam(s) Completed: Spine X-Ray(s):Lumbar AP / LAT / [id number] IV DATA: Not applicableSIGNED BY: Katelin Hollingsworth RtSept2017 11:04 AM Normal [facility] Protein mass conc HNO ID: [id number] thor: Andrews Reaganervice: (none)Author Type: PhysicianType: Progress NotesFiled: 03/10/2018 10:50 AMNote Text:SPINE SURGERY OUTPATIENT CONSULTSERVICE DATE: 03/10/2018PCP: Roni Motta, MDREFERRING PROVIDER:Lanie Prince, [id number] [address] [id number] requested for an opinion regarding the evaluation [...] 10, 2018 : 10:44 AM PAGER: Normal [facility] XR LUMBAR 2V AP/LATon 2017 XR LUMBAR 2V AP/LAT * * *Final Report* * *DATE OF EXAM: Mar 10 2018 11:03AM CHRISTIANX [id number] - XR LUMBAR 2V AP/LAT / [...] lordosis, grade 1 spondylolisthesis of L4 upon [id number] bodies: Normal in height. No vertebral fracture.Spine [...] STEIN MD on Mar 10 2018 11:23AM [id number] Normal [facility] Vital Signs Date Time Vital Sign Value Performing Clinician Facility 02-05-2025 09:34-0400 Body mass index (BMI) [Ratio] 36.73 kg/m2 Georges Barger PA-C Work Phone: [facility] 02-05-2025 09:34-0400 Body temperature 98.49 [degF] Georges Barger PA-C Work Phone: [facility] 02-05-2025 09:34-0400 Body weight 97.07 kg Georges Barger PA-C Work Phone: [facility] 02-05-2025 09:34-0400 Diastolic blood pressure 65 mm[Hg] Georges Barger PA-C Work Phone: [facility] 02-05-2025 09:34-0400 Heart rate 76 /min Georges Barger PA-C Work Phone: [facility] 02-05-2025 09:34-0400 Respiratory rate 16 /min Georges Barger PA-C Work Phone: [facility] 02-05-2025 09:34-0400 SaO2% (BldA) [Mass fraction] 97 % Georges Barger PA-C Work Phone: [facility] 02-05-2025 09:34-0400 Systolic blood pressure 136 mm[Hg] Georges Barger PA-C Work Phone: [facility] 01-15-2025 09:17-0400 Body mass index (BMI) [Ratio] 36.39 kg/m2 Christian Lamport PA-C Work Phone: [facility] 01-15-2025 09:17-0400 Body temperature 97.3 [degF] Christian Lamport PA-C Work Phone: [facility] 01-15-2025 09:17-0400 Body weight 96.16 kg Christian Lamport PA-C Work Phone: [facility] 01-15-2025 09:17-0400 Diastolic blood pressure 80 mm[Hg] Christian Lamport PA-C Work Phone: [facility] 01-15-2025 09:17-0400 Heart rate 72 /min Christian Lamport PA-C Work Phone: [facility] 01-15-2025 09:17-0400 Respiratory rate 16 /min Christian Lamport PA-C Work Phone: [facility] 01-15-2025 09:17-0400 SaO2% (BldA) [Mass fraction] 98 % Christian Lamport PA-C Work Phone: [facility] 01-15-2025 09:17-0400 Systolic blood pressure 133 mm[Hg] Christian Lamport PA-C Work Phone: [facility] 11-26-2024 09:21-0400 Body height 163.8 cm Christopher Bohach DPM Work Phone: [facility] 11-26-2024 09:21-0400 Body mass index (BMI) [Ratio] 35.83 kg/m2 Christopher Bohach DPM Work Phone: [facility] 11-26-2024 09:21-0400 Body weight 96.16 kg Christopher Bohach DPM Work Phone: [facility] 11-26-2024 09:21-0400 Diastolic blood pressure 73 mm[Hg] Christopher Bohach DPM Work Phone: [facility] 11-26-2024 09:21-0400 Heart rate 75 /min Christopher Bohach DPM Work Phone: [facility] 11-26-2024 09:21-0400 Systolic blood pressure 140 mm[Hg] Christopher Bohach DPM Work Phone: [facility] 08-17-2024 13:49-0500 Body height 163.8 cm Christopher Bohach DPM Work Phone: [facility] 08-17-2024 13:49-0500 Body mass index (BMI) [Ratio] 35.83 kg/m2 Christopher Bohach DPM Work Phone: [facility] 08-17-2024 13:49-0500 Body weight 96.16 kg Christopher Bohach DPM Work Phone: [facility] 08-17-2024 13:49-0500 Diastolic blood pressure 75 mm[Hg] Christopher Bohach DPM Work Phone: [facility] 08-17-2024 13:49-0500 Heart rate 70 /min Christopher Bohach DPM Work Phone: [facility] 08-17-2024 13:49-0500 Respiratory rate 18 /min Christopher Bohach DPM Work Phone: [facility] 08-17-2024 13:49-0500 Systolic blood pressure 127 mm[Hg] Lexy Canales DPM Work Phone: [facility] 07-10-2024 06:34-0500 Body height 162.6 cm [facility] 07-10-2024 06:34-0500 Body mass index (BMI) [Ratio] 36.39 kg/m2 Lexy Tapia MD [facility] 07-10-2024 06:34-0500 Body weight 96.16 kg Lexy Tapia MD [facility] 07-10-2024 06:30-0500 Body temperature 98.29 [degF] [facility] 07-10-2024 06:30-0500 Diastolic blood pressure 59 mm[Hg] Lexy Tap[facility] MD [facility] 07-10-2024 06:30-0500 Heart rate 74 /min Lexy Tapia MD [facility] 07-10-2024 06:30-0500 Respiratory rate 17 /min Lexy Tapia MD [facility] 07-10-2024 06:30-0500 SaO2% (BldA) [Mass fraction] 98 % Lexy Tapia MD Work Phone: [employer] 07-10-2024 06:30-0500 Systolic blood pressure 133 mm[Hg] Lexy [facility] MD [facility] 06-24-2024 18:05-0500 SaO2% (BldA) [Mass fraction] 96 % Monster Mei MD Work Phone: [facility] [employer] 06-24-2024 18:00-0500 Diastolic blood pressure 73 mm[Hg] Monster Mei MD Work Phone: [facility] [employer] 06-24-2024 18:00-0500 Systolic blood pressure 158 mm[Hg] Monster Mei MD Work Phone: [facility] [employer] 06-24-2024 17:25-0500 Body height 162.6 cm Monster Mei MD Work Phone: [facility] [employer] 06-24-2024 17:25-0500 Body mass index (BMI) [Ratio] 36.39 kg/m2 Monster Mei MD Work Phone: [facility] [employer] 06-24-2024 17:25-0500 Body temperature 99.7 [degF] Monster Mei MD Work Phone: [facility] [employer] 06-24-2024 17:25-0500 Body weight 96.16 kg Monster Mei MD Work Phone: [facility] [employer] 06-24-2024 17:25-0500 Heart rate 75 /min Monster Mei MD Work Phone: [facility] [employer] 06-24-2024 17:25-0500 Respiratory rate 19 /min Monster Mei MD Work Phone: [facility] [employer] 11-14-2023 22:17-0400 Diastolic blood pressure 85 mm[Hg] Jessica Farrar MD Work Phone: [facility] [place] [employer] 11-14-2023 22:17-0400 Heart rate 60 /min Jessica Farrar MD Work Phone: [facility] [employer] 11-14-2023 22:17-0400 Respiratory rate 17 /min Jessica Farrar MD Work Phone: [facility] [employer] 11-14-2023 22:17-0400 SaO2% (BldA) [Mass fraction] 96 % Jessica Farrar MD Work Phone: [facility] [employer] 11-14-2023 22:17-0400 Systolic blood pressure 122 mm[Hg] Jessica Farrar MD Work Phone: [facility] [employer] 11-14-2023 18:48-0400 Body temperature 98.01 [degF] Jessica Farrar MD Work Phone: [facility] [employer] 11-14-2023 18:42-0400 Body height 162.6 cm Jessica Farrar MD Work Phone: [facility] [employer] 11-14-2023 18:42-0400 Body mass index (BMI) [Ratio] 37.08 kg/m2 Jessica Farrar MD Work Phone: [facility] [employer] 11-14-2023 18:42-0400 Body weight 97.98 kg Jessica Farrar MD Work Phone: [facility] [employer] 10-23-2023 12:23-0400 Heart rate 79 /min Lexy Tapia MD Work Phone: [facility] [employer] 10-23-2023 12:23-0400 Respiratory rate 16 /min Lexy Tapia MD Work Phone: [facility] [employer] 10-23-2023 12:23-0400 SaO2% (BldA) [Mass fraction] 97 % Lexy Tapia MD Work Phone: [facility] [employer] 10-23-2023 12:13-0400 Diastolic blood pressure 65 mm[Hg] Lexy Tapia MD Work Phone: [facility] [employer] 10-23-2023 12:13-0400 Systolic blood pressure 100 mm[Hg] Lexy Tapia MD Work Phone: [facility] [employer] 10-23-2023 09:46-0400 Body height 160 cm Lexy Tapia MD Work Phone: [facility] [employer] 10-23-2023 09:46-0400 Body mass index (BMI) [Ratio] 38.09 kg/m2 Lexy Tapia MD Work Phone: [facility] 10-23-2023 09:46-0400 Body temperature 98.1 [degF] Lexy Tapia MD Work Phone: [facility] 10-23-2023 09:46-0400 Body weight 97.52 kg Lexy Tapia MD Work Phone: [facility] 09-16-2023 15:15-0400 Diastolic blood pressure 67 mm[Hg] Ricardo Sarmini [facility] 09-16-2023 15:15-0400 Heart rate 53 /min Ricardo Sarmini [facility] 09-16-2023 15:15-0400 Respiratory rate 14 /min Ricardo Sarmini [facility] 09-16-2023 15:15-0400 Systolic blood pressure 148 mm[Hg] Ricardo Sarmini [facility] 09-16-2023 15:00-0400 Diastolic blood pressure 81 mm[Hg] Ricardo Sarmini [facility] 09-16-2023 15:00-0400 Heart rate 54 /min Ricardo Sarmini [facility] 09-16-2023 15:00-0400 Systolic blood pressure 153 mm[Hg] Ricardo Sarmini [facility] 09-16-2023 14:55-0400 Diastolic blood pressure 89 mm[Hg] Ricardo Sarmini [facility] 09-16-2023 14:55-0400 Heart rate 60 /min Ricardo Sarmini [facility] 09-16-2023 14:55-0400 Respiratory rate 20 /min Ricardo Sarmini [facility] 09-16-2023 14:55-0400 SaO2% (BldA) [Mass fraction] 100 % Ricardo Sarmini [facility] 09-16-2023 14:55-0400 Systolic blood pressure 135 mm[Hg] Ricardo Sarmini [facility] 09-16-2023 14:44-0400 Body temperature 96.8 [degF] Ricardo Sarmini [facility] 09-16-2023 14:35-0400 Respiratory rate 12 /min Ricardo Sarmini [facility] 09-16-2023 14:25-0400 Respiratory rate 12 /min Ricardo Sarmini [facility] 09-16-2023 14:15-0400 Respiratory rate 12 /min Ricardo Sarmini [facility] 09-16-2023 13:14-0400 Blood Pressure Location Ricardo Sarmini [facility] 09-16-2023 13:14-0400 Body temperature 96.8 [degF] Ricardo Sarmini [facility] 07-01-2023 15:32-0500 Body height 160 cm Monster Mei MD Work Phone: [facility] [employer] 07-01-2023 15:32-0500 Body mass index (BMI) [Ratio] 36.49 kg/m2 Monster Mei MD Work Phone: [facility] 07-01-2023 15:32-0500 Body temperature 98.91 [degF] Monster Mei MD Work Phone: [facility] 07-01-2023 15:32-0500 Body weight 93.44 kg Monster Mei MD Work Phone: [facility] [employer] 07-01-2023 15:32-0500 Diastolic blood pressure 70 mm[Hg] Monster Mei MD Work Phone: [facility] [employer] 07-01-2023 15:32-0500 Heart rate 80 /min Monster Mei MD Work Phone: [facility] [employer] 07-01-2023 15:32-0500 Respiratory rate 20 /min Monster Mei MD Work Phone: [facility] [employer] 07-01-2023 15:32-0500 SaO2% (BldA) [Mass fraction] 97 % Monster Mei MD Work Phone: [facility] [employer] 07-01-2023 15:32-0500 Systolic blood pressure 138 mm[Hg] Monster eMi MD Work Phone: [facility] [employer] 05-02-2023 08:55-0400 Body height 162.6 cm Grayson Hutchinson Jr., DO Work Phone: [facility] 05-02-2023 08:55-0400 Body mass index (BMI) [Ratio] 36.46 kg/m2 Grayson Hutchinson Jr., DO Work Phone: [facility] 05-02-2023 08:55-0400 Body temperature 97.7 [degF] Grayson Hutchinson Jr., DO Work Phone: [facility] 05-02-2023 08:55-0400 Body weight 96.34 kg Grayson Hutchinson Jr., DO Work Phone: [facility] 05-02-2023 08:55-0400 Diastolic blood pressure 82 mm[Hg] Grayson Hutchinson Jr., DO Work Phone: [facility] 05-02-2023 08:55-0400 Heart rate 72 /min Grayson Hutchinson Jr., DO Work Phone: [facility] 05-02-2023 08:55-0400 Systolic blood pressure 150 mm[Hg] Grayson Hutchinson Jr., DO Work Phone: [facility] 03-19-2023 08:55-0400 Diastolic blood pressure 73 mm[Hg] MD Roni Dahl Work Phone: [facility] 03-19-2023 08:55-0400 Heart rate 63 /min MD Roni Dahl Work Phone: [facility] 03-19-2023 08:55-0400 Respiratory rate 16 /min MD Roni Dahl Work Phone: [facility] 03-19-2023 08:55-0400 SaO2% (BldA) [Mass fraction] 95 % MD Roni Dahl Work Phone: [facility] 03-19-2023 08:55-0400 Systolic blood pressure 141 mm[Hg] MD Roni Dahl Work Phone: [facility] 03-19-2023 08:15-0400 Inhaled oxygen flow rate 3 L/min MD Roni Dahl Work Phone: [facility] 03-19-2023 07:19-0400 Body height 160.02 cm MD Roni Dahl Work Phone: [facility] 03-19-2023 07:19-0400 Body weight 96.61 kg MD Roni Dahl Work Phone: [facility] 03-07-2023 09:20-0400 Body height Mukul Wilson Other [employer] Other 03-07-2023 09:20-0400 Body mass index (BMI) [Ratio] 35.99 kg/m2 Mukul Wilson Other [employer] Other 03-07-2023 09:20-0400 Body weight 96.62 kg Mukul Wilson Other [facility] [email or web address] Other 03-07-2023 09:20-0400 Diastolic blood pressure 80 mm[Hg] Mukul Wilson Other [employer] [facility] [email or web address] Other 03-07-2023 09:20-0400 Systolic blood pressure 152 mm[Hg] Mukul Wilson Other [facility] [email or web address] Other 03-01-2023 12:05-0400 Body height 162.56 cm MD Roni Dahl Work Phone: [facility] 03-01-2023 12:05-0400 Body temperature 98.6 [degF] MD Roni Dahl Work Phone: [facility] 03-01-2023 12:05-0400 Body weight 96.61 kg MD Roni Dahl Work Phone: [facility] 03-01-2023 12:05-0400 Diastolic blood pressure 74 mm[Hg] MD Roni Dahl Work Phone: [facility] 03-01-2023 12:05-0400 Heart rate 59 /min MD Roni Dahl Work Phone: [facility] 03-01-2023 12:05-0400 Respiratory rate 20 /min MD Roni Dahl Work Phone: [facility] 03-01-2023 12:05-0400 SaO2% (BldA) [Mass fraction] 96 % MD Roni Dahl Work Phone: [facility] 03-01-2023 12:05-0400 Systolic blood pressure 143 mm[Hg] MD Roni Dahl Work Phone: [facility] 02-28-2023 12:51-0400 Blood Pressure Location Ricardo Kellytimmy [facility] 02-28-2023 12:51-0400 Diastolic blood pressure 92 mm[Hg] Ricardo Sarmini [facility] 02-28-2023 12:51-0400 Heart rate 64 /min Ricardo Sarmini [facility] 02-28-2023 12:51-0400 Respiratory rate 16 /min Ricardo Sarmini [facility] 02-28-2023 12:51-0400 SaO2% (BldA) [Mass fraction] 98 % Ricardo Sarmini [facility] 02-28-2023 12:51-0400 Systolic blood pressure 135 mm[Hg] Ricardo Sarmini [facility] 02-08-2023 14:05-0400 Body temperature 98.1 [degF] Roni Dahl MD Work Phone: [employer] 02-08-2023 14:05-0400 Diastolic blood pressure 63 mm[Hg] Roni Dahl MD Work Phone: [facility] [employer] 02-08-2023 14:05-0400 Heart rate 59 /min Roni Dahl MD Work Phone: [facility] [employer] 02-08-2023 14:05-0400 Respiratory rate 13 /min Roni Dahl MD Work Phone: [employer] 02-08-2023 14:05-0400 SaO2% (BldA) [Mass fraction] 97 % Roni Dahl MD Work Phone: [employer] 02-08-2023 14:05-0400 Systolic blood pressure 143 mm[Hg] Roni Dahl MD Work Phone: [employer] 01-30-2023 15:30-0400 Body temperature 98.7 [degF] Tara Patel Other [employer] Other 01-30-2023 15:30-0400 Body weight 99.79 kg Tara Patel Other [employer] Other 01-30-2023 15:30-0400 Diastolic blood pressure 70 mm[Hg] Tara Patel Other [employer] Other 01-30-2023 15:30-0400 Respiratory rate 20 /min Tara Patel Other [employer] Other 01-30-2023 15:30-0400 SaO2% (BldA) [Mass fraction] 98 % Tara Patel Other [employer] Other 01-30-2023 15:30-0400 Systolic blood pressure 122 mm[Hg] Tara Patel Other [employer] Other 11-25-2022 12:00-0400 Diastolic blood pressure 75 mm[Hg] Salomon Juares MD Work Phone: [facility] [employer] 11-25-2022 12:00-0400 SaO2% (BldA) [Mass fraction] 99 % Salomon Juares MD Work Phone: [facility] [employer] 11-25-2022 12:00-0400 Systolic blood pressure 140 mm[Hg] Salomon Juares MD Work Phone: [facility] [employer] 11-25-2022 10:30-0400 Heart rate 59 /min Salomon Juares MD Work Phone: [facility] [employer] 11-25-2022 10:30-0400 Respiratory rate 18 /min Salomon [facility]ares MD [facility] 11-25-2022 10:05-0400 Body temperature 97.9 [degF] Salomon [facility]ares MD [facility] 11-25-2022 10:04-0400 Body height 162.6 cm Salomon Juares MD [facility] [employer] 11-25-2022 10:04-0400 Body mass index (BMI) [Ratio] 38.16 kg/m2 Salomon Juares MD Work [facility] [employer] 11-25-2022 10:04-0400 Body weight 100.83 kg Salomon Juares MD [facility] 08-28-2022 12:58-0500 Blood Pressure Location Donna Spencer [facility] 08-28-2022 12:58-0500 Body temperature 97.34 [degF] Donna Spencer [facility] 08-28-2022 12:58-0500 Diastolic blood pressure 72 mm[Hg] Donna Spencer [facility] 08-28-2022 12:58-0500 Heart rate 69 /min Donna Spencer [facility] 08-28-2022 12:58-0500 Systolic blood pressure 114 mm[Hg] Donna Spencer [facility] 07-26-2022 08:55-0500 Diastolic blood pressure 69 mm[Hg] Ferrari SALAM [facility] 07-26-2022 08:55-0500 Heart rate 54 /min Ferrari SALAM [facility] 07-26-2022 08:55-0500 Mean blood pressure 84 mm[Hg] Ferrari SALAM [facility] 07-26-2022 08:55-0500 Respiratory rate 13 /min Ferrari SALAM [facility] 07-26-2022 08:55-0500 SaO2% (BldA) [Mass fraction] 97 % Ferrari SALAM [facility] 07-26-2022 08:55-0500 Systolic blood pressure 114 mm[Hg] Ferrari SALAM [facility] 07-26-2022 08:35-0500 Diastolic blood pressure 71 mm[Hg] Ferrari SALAM [facility] 07-26-2022 08:35-0500 Heart rate 55 /min Ferrari SALAM [facility] 07-26-2022 08:35-0500 Mean blood pressure 84 mm[Hg] Ferrari SALAM [facility] 07-26-2022 08:35-0500 Respiratory rate 17 /min Ferrari SALAM [facility] 07-26-2022 08:35-0500 SaO2% (BldA) [Mass fraction] 100 % Ferrari SALAM [facility] 07-26-2022 08:35-0500 Systolic blood pressure 111 mm[Hg] Ferrari SALAM [facility] 07-26-2022 08:30-0500 Diastolic blood pressure 72 mm[Hg] Ferrari SALAM [facility] 07-26-2022 08:30-0500 Heart rate 71 /min Ferrari SALAM [facility] 07-26-2022 08:30-0500 Mean blood pressure 92 mm[Hg] Ferrari SALAM [facility] 07-26-2022 08:30-0500 Respiratory rate 21 /min Ferrari SALAM [facility] 07-26-2022 08:30-0500 SaO2% (BldA) [Mass fraction] 99 % Ferrari SALAM [facility] 07-26-2022 08:30-0500 Systolic blood pressure 131 mm[Hg] Ferrari SALAM [facility] 07-26-2022 08:20-0500 Body temperature 97.7 [degF] Ferrari SALAM [facility] 07-26-2022 07:14-0500 Blood Pressure Location Ferrari SALAM [facility] 07-26-2022 07:14-0500 Body temperature 97.16 [degF] Ferrari SALAM [facility] 07-17-2022 09:53-0500 Diastolic blood pressure 60 mm[Hg] MD Roni Dahl Work Phone: [facility] 07-17-2022 09:53-0500 Heart rate 60 /min MD Roni Dahl Work Phone: [facility] 07-17-2022 09:53-0500 Respiratory rate 16 /min MD Roni Dahl Work Phone: [facility] 07-17-2022 09:53-0500 SaO2% (BldA) [Mass fraction] 97 % MD Roni Dahl Work Phone: [facility] 07-17-2022 09:53-0500 Systolic blood pressure 120 mm[Hg] MD Roni Dahl Work Phone: [facility] 07-17-2022 09:06-0500 Inhaled oxygen flow rate 3 L/min MD Roni Dahl Work Phone: [facility] 07-17-2022 08:22-0500 Body height 162.56 cm MD Roni Dahl Work Phone: [facility] 07-17-2022 08:22-0500 Body weight 99.79 kg MD Roni Dahl Work Phone: [facility] 07-12-2022 09:28-0500 Body temperature 97.7 [degF] Alma Maier DO Work Phone: [employer] 07-12-2022 09:21-0500 Body height 162.6 cm Alma Daylin DO Work Phone: [employer] 07-12-2022 09:21-0500 Body mass index (BMI) [Ratio] 37.93 kg/m2 Alma Mao DO Work Phone: [employer] 07-12-2022 09:21-0500 Body weight 100.25 kg Alma Daylin DO Work Phone: [employer] 07-12-2022 09:21-0500 Diastolic blood pressure 71 mm[Hg] Alma Mao DO Work Phone: [employer] 07-12-2022 09:21-0500 Heart rate 72 /min Alma Mao DO Work Phone: [employer] 07-12-2022 09:21-0500 Respiratory rate 18 /min Alma Mao DO Work Phone: [employer] 07-12-2022 09:21-0500 SaO2% (BldA) [Mass fraction] 98 % Alma Mao DO Work Phone: [employer] 07-12-2022 09:21-0500 Systolic blood pressure 128 mm[Hg] Alma Mao DO Work Phone: [employer] 07-10-2022 14:16-0500 Blood Pressure Location Donna Spencer [facility] 07-10-2022 14:16-0500 Body temperature 96.8 [degF] Donna Spencer [facility] 07-10-2022 14:16-0500 Diastolic blood pressure 80 mm[Hg] Donna Spencer [facility] 07-10-2022 14:16-0500 Heart rate 64 /min Donna Spencer [facility] 07-10-2022 14:16-0500 Systolic blood pressure 119 mm[Hg] Donna Spencer [facility] 07-03-2022 11:10-0500 Diastolic blood pressure 73 mm[Hg] MD Roni Dahl Work Phone: [facility] 07-03-2022 11:10-0500 Heart rate 56 /min MD Roni Dahl Work Phone: [facility] 07-03-2022 11:10-0500 Respiratory rate 20 /min MD Roni Dahl Work Phone: [facility] 07-03-2022 11:10-0500 SaO2% (BldA) [Mass fraction] 97 % MD Roni Dahl Work Phone: [facility] 07-03-2022 11:10-0500 Systolic blood pressure 136 mm[Hg] MD Roni Dahl Work Phone: [facility] 07-03-2022 10:28-0500 Inhaled oxygen flow rate 3 L/min MD Roni Dahl Work Phone: [facility] 07-03-2022 09:32-0500 Body height 162.56 cm MD Roni Dahl Work Phone: [facility] 07-03-2022 09:32-0500 Body weight 99.79 kg MD Roin Dahl Work Phone: [facility] 05-29-2022 10:13-0500 Diastolic blood pressure 72 mm[Hg] MD Roni Dahl Work Phone: [facility] 05-29-2022 10:13-0500 Heart rate 62 /min MD Roni Dahl Work Phone: [facility] 05-29-2022 10:13-0500 Respiratory rate 20 /min MD Roni Dahl Work Phone: [facility] 05-29-2022 10:13-0500 SaO2% (BldA) [Mass fraction] 97 % MD Roni Dahl Work Phone: [facility] 05-29-2022 10:13-0500 Systolic blood pressure 139 mm[Hg] MD Roni Dahl Work Phone: [facility] 05-29-2022 09:23-0500 Inhaled oxygen flow rate 3 L/min MD Rnoi Dahl Work Phone: [facility] 05-29-2022 08:38-0500 Body height 162.56 cm MD Roni Dahl Work Phone: [facility] 05-29-2022 08:38-0500 Body weight 100.24 kg MD Roni Dahl Work Phone: [facility] 04-09-2022 11:15-0400 Body weight 101.15 kg Yanelis Garcia Other [employer] Other 03-27-2022 09:14-0400 Diastolic blood pressure 62 mm[Hg] MD Roni Dahl Work Phone: [facility] 03-27-2022 09:14-0400 Heart rate 57 /min MD Roni Dahl Work Phone: [facility] 03-27-2022 09:14-0400 Respiratory rate 16 /min MD Roni Dahl Work Phone: [facility] 03-27-2022 09:14-0400 SaO2% (BldA) [Mass fraction] 96 % MD Roni Dahl Work Phone: [facility] 03-27-2022 09:14-0400 Systolic blood pressure 121 mm[Hg] MD Roni Dahl Work Phone: [facility] 03-27-2022 08:36-0400 Inhaled oxygen flow rate 3 L/min MD Roni Dahl Work Phone: [facility] 03-27-2022 07:55-0400 Body height 165.1 cm MD Roni Dahl Work Phone: [facility] [facility] 03-27-2022 07:55-0400 Body weight 100.24 kg MD Roni Dahl Work Phone: [facility] 10-14-2021 11:07-0400 Body mass index (BMI) [Ratio] 38.77 kg/m2 Lexy Tapia MD Work Phone: [facility] [employer] 10-14-2021 11:07-0400 Body temperature 98.2 [degF] Lexy Tapia MD Work Phone: [facility] [employer] 10-14-2021 11:07-0400 Body weight 105.69 kg Lexy Tapia MD Work Phone: [facility] [place] 10-14-2021 11:07-0400 Diastolic blood pressure 73 mm[Hg] Lexy Tapia MD Work Phone: [facility] [place] 10-14-2021 11:07-0400 Heart rate 67 /min Lexy Tapia MD Work Phone: [facility] [place] 10-14-2021 11:07-0400 Respiratory rate 16 /min Lexy Tapia MD Work Phone: [facility] [place] 10-14-2021 11:07-0400 SaO2% (BldA) [Mass fraction] 98 % Lexy Tapia MD Work Phone: [facility] [place] 10-14-2021 11:07-0400 Systolic blood pressure 147 mm[Hg] Lexy Tapia MD Work Phone: [facility] [place] 11-27-2020 14:00-0400 Respiratory rate 18 /min Darryl Sandoval MD Work Phone: [facility] [place] Work Phone: 11-27-2020 09:32-0400 SaO2% (BldA) [Mass fraction] 96 % Darryl Sandoval MD Work Phone: [facility] [place] Work Phone: 11-27-2020 09:31-0400 Body temperature 98.1 [degF] Darryl Sandoval MD Work Phone: [facility] [place] Work Phone: 11-27-2020 09:31-0400 Diastolic blood pressure 78 mm[Hg] Darryl Sandoval MD Work Phone: [facility] [place] Work Phone: 11-27-2020 09:31-0400 Heart rate 78 /min Darryl Sandoval MD Work Phone: [facility] [place] Work Phone: 11-27-2020 09:31-0400 Systolic blood pressure 139 mm[Hg] Darryl Sandoval MD Work Phone: [facility] [place] Work Phone: 11-18-2020 09:19-0400 Diastolic blood pressure 57 mm[Hg] Naida Grissom MD Work Phone: [facility] [place] Work Phone: 11-18-2020 09:19-0400 SaO2% (BldA) [Mass fraction] 96 % Naida Grissom MD Work Phone: [facility] [place] Work Phone: 11-18-2020 09:19-0400 Systolic blood pressure 118 mm[Hg] Naida Grissom MD Work Phone: [facility] [place] Work Phone: 11-18-2020 06:45-0400 Body height 165.1 cm aNida Grissom MD Work Phone: [facility] [place] Work Phone: 11-18-2020 06:45-0400 Body mass index (BMI) [Ratio] 37.11 kg/m2 Naida Grissom MD Work Phone: [facility] [place] Work Phone: 11-18-2020 06:45-0400 Body temperature 99.19 [degF] Naida Grissom MD Work Phone: [facility] [place] Work Phone: 11-18-2020 06:45-0400 Body weight 101.15 kg Naida Grissom MD Work Phone: [facility] [place] Work Phone: 11-18-2020 06:45-0400 Heart rate 87 /min Naida Grissom MD Work Phone: [facility] [place] Work Phone: 11-18-2020 06:45-0400 Respiratory rate 18 /min Naida Grissom MD Work Phone: [facility] [place] Work Phone: 03-31-2020 13:48-0400 BMI (Body Mass Index) 38.79 kg/m2 [facility] [place] 03-31-2020 13:48-0400 Body Temperature 98.49 [degF] [facility] 03-31-2020 13:48-0400 Body weight 102.51 kg [facility] 03-31-2020 13:48-0400 BP Diastolic 99 mm[Hg] [facility] 03-31-2020 13:48-0400 BP Systolic 130 mm[Hg] [facility] 03-31-2020 13:48-0400 Height 162.6 cm [place] 03-31-2020 13:48-0400 Pulse (Heart Rate) 61 /min Moran Willie [facility], [place] 03-31-2020 13:48-0400 Pulse Oximetry 100 % [place] 03-31-2020 13:48-0400 Respiratory Rate 18 /min [facility] 05-30-2019 06:47-0500 Pulse Oximetry 100 % [facility] 05-30-2019 06:34-0500 BP Diastolic 44 mm[Hg] [facility] 05-30-2019 06:34-0500 BP Systolic 128 mm[Hg] [place] 05-30-2019 06:00-0500 BMI (Body Mass Index) 39.86 kg/m2 [facility] 05-30-2019 06:00-0500 Body Temperature 98.8 [degF] [place] 05-30-2019 06:00-0500 Body weight 102.06 kg [facility] 05-30-2019 06:00-0500 Height 160 cm [place] 05-30-2019 06:00-0500 Pulse (Heart Rate) 83 /min [facility], [place] 05-30-2019 06:00-0500 Respiratory Rate 20 /min [place] Encounters Encounter Date Encounter Type Care Provider Facility Start: 02-08-2025 End: 02-08-2025 ambulatory Trevon Harris MD Facility: [facility] Start: 02-05-2025 End: 02-05-2025 Office outpatient visit 15 minutes Georges Barger PA-C Work Phone: [facility] Comment on above: Cough, unspecified t ype (Primary Dx); Sore throat; Nasal congestion Start: 02-05-2025 End: 02-09-2025 ambulatory RONI DHAL [facility] Start: 01-15-2025 End: 01-15-2025 Office outpatient new 30 minutes Christian Lucio PA-C Work Phone: [facility] Comment on above: Bacterial URI (Prima ry Dx); Dermatitis Start: 01-15-2025 End: 01-15-2025 ambulatory CHRISTIAN LUCIO [facility] Start: 12-22-2024 End: 12-22-2024 [facility] Start: 12-22-2024 End: 12-22-2024 Subsequent hospital visit by physician Roni aDhl MD Work Phone: [facility] Comment on above: Gross hematuria Start: 11-26-2024 End: 11-26-2024 Bamboo flowsheet Lexy Canales DPM Work Phone: [facility] Start: 11-26-2024 End: 11-26-2024 Bamboo flowsheet Lexy Canales DPM Work Phone: [facility] Start: 11-26-2024 End: 11-26-2024 Office outpatient visit 15 minutes Lexy Canales DPM Work Phone: [facility] Comment on above: Grade 2 ankle sprain (Primary Dx); Ankle instability, right; Right foot drop Start: 11-26-2024 End: 11-26-2024 ambulatory LEXY CANALES Not Available Start: 09-15-2024 End: 09-15-2024 ambulatory LEXY CANALES Not Available Start: 09-10-2024 End: 09-10-2024 Patient encounter procedure Roni Dahl MD Work Phone: [facility] [address] Work Phone: Start: 09-10-2024 End: 09-10-2024 ambulatory Roni Dahl MD Work Phone: [facility] Work Phone: Start: 09-07-2024 End: 09-07-2024 ambulatory rTevon Harris MD Facility:[facility] Start: 08-28-2024 End: 08-28-2024 ambulatory [facility] Start: 08-28-2024 End: 08-28-2024 Subsequent hospital visit by physician Roni Dahl MD Work Phone: [facility] Comment on above: Essential hypertensi on; Palpitations; Hyperlipidemia, unspecified hyperlipidemia type; Hypothyroidism, unspecified type; Vitamin D deficiency disease Start: 08-27-2024 End: 08-27-2024 ambulatory RONI DAHL [facility] Start: 08-27-2024 End: 08-27-2024 Subsequent hospital visit by physician Roni Dahl MD Work Phone: [facility] Comment on above: Mixed incontinence u rge and stress Start: 08-27-2024 End: 08-29-2024 ambulatory [facility] Start: 08-27-2024 End: 08-29-2024 Subsequent hospital visit by physician Rei Additional Xray At [facility] Comment on above: Essential hypertensi on; Palpitations; Hyperlipidemia, unspecified hyperlipidemia type; Hypothyroidism, unspecified type; Vitamin D deficiency disease Start: 08-24-2024 End: 08-24-2024 ambulatory Trevon Harris MD Facility:[facility] Start: 08-17-2024 End: 08-17-2024 Bamboo flowsheet Lexy Canales DPM Work Phone: [facility] Start: 08-17-2024 End: 08-17-2024 Bamboo flowsheet Lexy Canales DPM Work Phone: [facility] Start: 08-17-2024 End: 08-17-2024 Office outpatient new 30 minutes Lexy Canales DPM Work Phone: [facility] Comment on above: Grade 2 ankle sprain (Primary Dx); Pain in joint involving right ankle and foot; Right foot pain; Ankle instability, right Start: 08-17-2024 End: 08-17-2024 ambulatory LEXY CANALES Not Available Start: 08-11-2024 End: 08-11-2024 Patient encounter procedure Roni Dahl MD Work Phone: [facility] [address] Work Phone: Start: 08-11-2024 End: 08-11-2024 ambulatory Roni Dahl MD Work Phone: [facility] Work Phone: Start: 07-10-2024 End: 07-10-2024 Emergency department patient visit Lexy Tapia MD Work Phone: [facility] Comment on above: Sprain of right ankl e, unspecified ligament, initial encounter (Primary Dx) Start: 06-24-2024 End: 06-24-2024 Emergency department patient visit Monster Mei MD Work Phone: [facility] Comment on above: COVID-19 virus infec tion (Primary Dx) Start: 06-01-2024 End: 06-01-2024 ambulatory Trevon Harris MD Facility: [facility] Start: 05-18-2024 End: 05-18-2024 ambulatory Trevon Harris MD Facility: [facility] Start: 05-08-2024 End: 05-10-2024 ambulatory RONI DAHL [facility] Start: 05-08-2024 End: 05-10-2024 Subsequent hospital visit by physician [facility] Mammography Room [facility] Mamm[facility] Comment on above: Visit for screening mammogram Start: 04-20-2024 End: 04-20-2024 ambulatory Trevon Harris MD Facility: [facility] Start: 04-06-2024 End: 04-06-2024 ambulatory Andpriscilla Harris MD Facility: [facility] Start: 03-23-2024 End: 03-23-2024 ambulatory Trevon Harris MD Facility:[facility] Start: 02-06-2024 End: 02-06-2024 Patient encounter procedure MD Roni Dahl Work Phone: [facility] Work Phone: Start: 02-06-2024 End: 02-06-2024 ambulatory MD Roni Dahl Work Phone: [facility] Work Phone: Start: 12-19-2023 End: 12-19-2023 Patient encounter procedure MD Roni Dahl Work Phone: [facility] [address] Work Phone: Start: 12-19-2023 End: 12-19-2023 ambulatory MD Roni Dahl Work Phone: [facility] Work Phone: Start: 12-12-2023 End: 12-12-2023 ambulatory RONI DAHL [facility] Start: 11-14-2023 End: 11-14-2023 Emergency department patient visit Jessica Farrar MD Work Phone: [facility] Comment on above: Paroxysmal atrial fi brillation (HCC) (Primary Dx) Start: 10-23-2023 End: 10-25-2023 ambulatory REAGAN Dejan RASHEEDANACHOPAN [facility] Start: 10-23-2023 End: 10-23-2023 Emergency department patient visit Lexy Tapia MD Work Phone: [facility] Comment on above: New onset atrial fib rillation (HCC) (Primary Dx); Atrial fibrillation with RVR (HCC); History of chronic kidney disease; Symptoms of dehydration; Fluid level behind tympanic membrane of both ears; Acute pansinusitis, recurrence not specified; Nausea vomiting and diarrhea Start: 10-22-2023 End: 10-24-2023 ambulatory RONI ORELLANADGJOLENE [facility] Start: 10-01-2023 End: 10-01-2023 [facility] Start: 09-19-2023 End: 09-19-2023 ambulatory MD Roni Dahl Work Phone: [facility] Work Phone: Start: 09-19-2023 End: 09-19-2023 Patient encounter procedure MD Roni Dahl Work Phone: [facility] [address] Work Phone: Start: 09-16-2023 End: 09-16-2023 ambulatory Davion Olivares [facility] Start: 09-16-2023 End: 09-16-2023 Patient encounter procedure [facility] Start: 07-01-2023 End: 07-01-2023 Emergency department patient visit Monster Mei MD Work Phone: [facility] Comment on above: COVID-19 virus infec tion (Primary Dx) Start: 05-27-2023 End: 05-27-2023 ambulatory MD Roni Dahl Work Phone: [facility] Work Phone: Start: 05-27-2023 End: 05-27-2023 Patient encounter procedure MD Roni Dahl Work Phone: [facility] [address] Work Phone: Start: 05-02-2023 End: 05-06-2023 ambulatory MARY SUE [facility] Start: 05-02-2023 End: 05-02-2023 Clinical Support Mary Sue [facility] Work Phone: [facility] Comment on above: Sensorineural hearin g loss, bilateral (Primary Dx); Hearing loss, unspecified hearing loss type, unspecified laterality Start: 05-02-2023 End: 05-02-2023 Office outpatient new 45 minutes Grayson Hutchinson DO Work Phone: [facility] Comment on above: Bruxism (teeth grind ing) (Primary Dx); Acute suppurative otitis media of left ear without spontaneous rupture of tympanic membrane, recurrence not specified; ROSETTE on CPAP; Hearing loss, unspecified hearing loss type, unspecified laterality Start: 04-11-2023 End: 04-11-2023 ambulatory XU CHRISTINE [facility] Start: 03-28-2023 End: 03-28-2023 ambulatory LANIE PRINCE [facility] Start: 03-19-2023 End: 03-19-2023 Admission to same day surgery center MD Roni Dahl Work Phone: [facility] Work Phone: Start: 03-19-2023 End: 03-19-2023 ambulatory MD Roni Dahl Work Phone: [facility] Work Phone: Start: 03-14-2023 End: 03-14-2023 ambulatory Yanelis Garcia Other [employer] Other Start: 03-14-2023 Office outpatient vi sit 25 minutes Yanelis Garcia [facility] [place] Start: 03-14-2023 Telephone encounter Yanelis Branch [facility] Start: 03-13-2023 End: 03-15-2023 Subsequent hospital visit by physician Yanelis Guzman MD Work Phone: [facility] Comment on above: Renal cyst Start: 03-08-2023 End: 03-08-2023 ambulatory Mukul Wilson Other [employer] Other Start: 03-08-2023 Telephone encounter Mukul Wilson [facility] Start: 03-07-2023 Office outpatient ne w 30 minutes Mukul Wilson [facility] Start: 03-07-2023 End: 03-07-2023 ambulatory MD Roni Dahl Work Phone: [facility] Work Phone: Start: 03-07-2023 End: 03-07-2023 Patient encounter procedure MD Roni Dahl Work Phone: [facility] [place] Work Phone: Start: 03-01-2023 End: 03-01-2023 Emergency department patient visit MD Roni Dahl Work Phone: [facility] Work Phone: Start: 02-28-2023 End: 02-28-2023 ambulatory Ricardo Talal Sarmini Facility:[facility] Start: 02-28-2023 End: 02-28-2023 Patient encounter procedure Ricardo [facility] Start: 02-27-2023 End: 03-01-2023 Subsequent hospital visit by physician Roni Dahl MD Work Phone: [facility] Start: 02-25-2023 End: 02-25-2023 ambulatory Yanelis Garcia Other [facility] [email or web address] Other Start: 02-25-2023 Telephone encounter [facility]is [facility] Start: 02-21-2023 End: 02-21-2023 ambulatory MD Roni Dahl Work Phone: [facility] Work Phone: Start: 02-21-2023 End: 02-21-2023 Patient encounter procedure MD Roni Dahl Work Phone: [facility] [place] Work Phone: Start: 02-14-2023 End: 02-14-2023 ambulatory Yanelis Garcia Other [employer] Other Start: 02-14-2023 Telephone encounter Yanelis [facility] [place] Start: 02-08-2023 End: 02-08-2023 Emergency department patient visit Roni Dahl MD Work Phone: [facility] Comment on above: 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, unspecified back pain laterality (Primary Dx) Start: 02-04-2023 End: 02-04-2023 ambulatory Yanelis Garcia Other [employer] Other Start: 02-04-2023 Telephone encounter Yanelis Branch [facility] Start: 01-30-2023 End: 01-30-2023 ambulatory Tara Patel Other [facility] [email or web address] Other Start: 01-30-2023 Office outpatient vi sit 25 minutes Tara Patel [facility] Start: 11-25-2022 End: 11-25-2022 Emergency department patient visit Salomon Juares MD Work Phone: [facility] Comment on above: Non-recurrent acute suppurative otitis media of left ear without spontaneous rupture of tympanic membrane (Primary Dx); Acute nonintractable headache, unspecified headache type Start: 08-29-2022 End: 08-31-2022 Subsequent hospital visit by physician [facility] Additional Xray At [facility] Comment on above: Essential hypertensi on; Palpitations; Hypothyroidism, unspecified type; Hyperlipidemia, unspecified hyperlipidemia type; Vitamin D deficiency disease Start: 08-28-2022 End: 08-28-2022 Patient encounter procedure Donna Spencer [facility] Start: 08-21-2022 End: 08-21-2022 ambulatory MD Roni Dahl Work Phone: [facility] Work Phone: Start: 08-21-2022 End: 08-21-2022 Patient encounter procedure MD Roni Dahl Work Phone: [facility] [address] Work Phone: Start: 07-31-2022 End: 07-31-2022 ambulatory Yanelis Garcia Other [employer] Other Start: 07-31-2022 Office outpatient vi sit 15 minutes Yanelis Garcia [facility] [place] Start: 07-31-2022 End: 07-31-2022 Subsequent hospital visit by physician Maria R Malhotra PT [facility] Physical Therapy Comment on above: Arrived Start: 07-26-2022 End: 07-26-2022 Patient encounter procedure Vonda HERNANDEZ [facility] Start: 07-17-2022 (Procedure) Bj Yanelis Garcia [facility] Start: 07-17-2022 End: 07-17-2022 Admission to same day surgery center MD Roni Dahl Work Phone: [facility] Work Phone: Start: 07-17-2022 End: 07-17-2022 ambulatory MD Roni Dahl Work Phone: [facility] Work Phone: Start: 07-12-2022 End: 07-12-2022 Emergency department patient visit Alma Mao DO Work Phone: [facility] Comment on above: Acute pharyngitis, u nspecified etiology (Primary Dx) Start: 07-10-2022 End: 07-10-2022 Patient encounter procedure Donna Spencer [facility] Start: 07-03-2022 (Procedure) Bj Garcia [facility] Start: 07-03-2022 End: 07-03-2022 Admission to same day surgery center MD Roni Dahl Work Phone: [facility] Work Phone: Start: 07-03-2022 End: 07-03-2022 ambulatory MD Roni Dahl Work Phone: [facility] Work Phone: Start: 06-26-2022 End: 06-26-2022 Patient encounter procedure Donna Spencer [facility] Start: 06-14-2022 End: 06-14-2022 Subsequent hospital visit by physician Maria R Malhotra PT [facility] Physical Therapy Comment on above: Arrived Start: 06-13-2022 End: 06-13-2022 ambulatory Yanelis Garcia Other [employer] Other Start: 06-13-2022 Office outpatient vi sit 25 minutes Yanelis Garcia [facility] [place] Start: 05-29-2022 (Procedure) Short Yanelis Garcia [facility] Start: 05-29-2022 End: 05-29-2022 Admission to same day surgery center MD Roni Dahl Work Phone: [facility] Start: 05-29-2022 End: 05-29-2022 ambulatory MD Roni Dahl Work Phone: [facility] Work Phone: Start: 05-07-2022 End: 05-07-2022 ambulatory MD Roni Dahl Work Phone: [facility] Work Phone: Start: 05-07-2022 End: 05-07-2022 Patient encounter procedure MD Roni Dahl Work Phone: [facility] [address] Start: 05-02-2022 End: 05-02-2022 ambulatory Yanelis Garcia Other [facility] [email or web address] Other Start: 05-02-2022 Office outpatient vi sit 25 minutes Yanelis Garcia [facility] [place] Start: 04-09-2022 End: 04-09-2022 ambulatory Yanelis Garcia Other [employer] Other Start: 04-09-2022 Office outpatient vi sit 25 minutes Yanelis Garcia [facility] [place] Start: 03-27-2022 End: 03-27-2022 Admission to same day surgery center MD Roni Dahl Work Phone: [facility] Start: 03-14-2022 End: 03-14-2022 Patient encounter procedure MD Roni Dahl Work Phone: [facility] Start: 02-22-2022 End: 02-22-2022 Patient encounter procedure MD Roni Dahl Work Phone: [facility] [address] Start: 01-31-2022 End: 02-02-2022 Subsequent hospital visit by physician Rei Mammography Room [facility] Comment on above: Visit for screening mammogram Start: 12-07-2021 End: 12-07-2021 Patient encounter procedure MD Roni Dahl Work Phone: [facility] Start: 11-30-2021 End: 12-02-2021 Subsequent hospital visit by physician Rei Dig Rad 1 [facility] Comment on above: H/O repair of right rotator cuff Start: 11-30-2021 End: 12-02-2021 Subsequent hospital visit by physician Roni Dahl MD Work Phone: [facility] [employer] [facility] Start: 10-30-2021 End: 10-30-2021 Patient encounter procedure Donna Spencer [facility] Start: 10-26-2021 End: 10-26-2021 Patient encounter procedure Roni Dahl MD Work Phone: [facility] Start: 10-26-2021 End: 10-26-2021 Subsequent hospital visit by physician Roni Dahl MD Work Phone: [facility] Comment on above: Women's annual routi ne gynecological examination; Vaginal burning Start: 10-14-2021 End: 10-14-2021 Emergency department patient visit Lexy Tapia MD Work Phone: [facility] ED Comment on above: Acute cystitis with [...] visit by physician Rei Additional Xray At [facility] Radiology Comment on above: History of arthrosco py of right shoulder Start: 06-14-2021 End: 06-14-2021 Subsequent hospital visit by physician Velasquez Martel PTA [facility] Comment on above: Arrived Start: 06-12-2021 End: 06-12-2021 Subsequent hospital visit by physician Rashmi Garcia [facility] Start: 06-12-2021 End: 06-12-2021 Subsequent hospital visit by physician Rei Lewis19 Pat Screening Schedule [facility] PRE ADMIT Comment [...] 04-29-2021 Subsequent hospital visit by physician Rei Seals Rad 1 [facility] Radiology Comment on above: Right shoulder pain, unspecified chronicity Start: 04-27-2021 End: 04-29-2021 Subsequent hospital visit by physician [facility] Start: 01-20-2021 End: 01-22-2021 Subsequent hospital visit by physician [facility] Mammography Room [facility] Mammography Comment on above: Screening mammogram, encounter for Start: 01-09-2021 End: 01-09-2021 Subsequent hospital visit by physician Roni Dahl MD Work Phone: [facility] Comment on above: Low hemoglobin Start: 12-09-2020 End: 12-09-2020 Subsequent hospital visit by physician Roni Dahl MD Work Phone: [facility] Comment on above: Low hemoglobin Start: 11-27-2020 End: 11-27-2020 Emergency department patient visit Darryl Sandoval MD Work Phone: [facility] ED Comment on above: Diarrhea, unspecifie d type (Primary Dx); General weakness; Urinary incontinence, unspecified type Start: 11-22-2020 End: 11-22-2020 Subsequent hospital visit by physician Roni Dahl MD Work Phone: [facility] Comment on above: Diarrhea of presumed infectious origin; Intractable vomiting with nausea, unspecified vomiting type Start: 11-18-2020 End: 11-18-2020 Emergency department patient visit Naida Grissom MD Work Phone: [facility] Comment on above: Nausea vomiting and diarrhea (Primary Dx) Start: 08-11-2020 End: 08-11-2020 Subsequent hospital visit by physician Roni [facility] Comment on above: Essential hypertensi on; Palpitations; Hypothyroidism, unspecified type; Hyperlipidemia, unspecified hyperlipidemia type; Vitamin D deficiency disease Start: 08-09-2020 End: 08-09-2020 Subsequent hospital visit by physician Roni [facility] Comment on above: Essential hypertensi on; Palpitations; Hypothyroidism, unspecified type Start: 06-29-2020 End: 06-29-2020 Subsequent hospital visit by physician Breezy Covid Screening Schedule [facility] Covid Screening Comment on above: Acute recurrent pans inusitis; Fever, unspecified fever cause Start: 03-31-2020 End: 03-31-2020 Subsequent hospital visit by physician Roni [facility] Comment on above: Viral illness; Exposure to COVID-19 virus Start: 03-31-2020 End: 03-31-2020 Emergency department patient visit Lexy Tapia Work Phone: [facility] ED Comment on above: General weakness (Pr imary Dx); YANNA (middle ear effusion), bilateral Start: 11-09-2019 End: 11-11-2019 Subsequent hospital visit by physician [facility] Mammography Room [facility] Mammography Comment on above: Visit for screening mammogram Start: 07-07-2019 End: 07-09-2019 Subsequent hospital visit by physician Roni Dahl MD Work Phone: [facility] RESPIRATORY THERAPY Comment on above: Essential hypertensi on; Pure hypercholesterolemia; Acquired hypothyroidism; Palpitations; Vitamin D deficiency disease Start: 05-30-2019 End: 05-30-2019 Emergency department patient visit Lexy Tapia Work Phone: [facility] ED Comment on above: Acute recurrent fron venkat sinusitis (Primary Dx); Acute middle ear effusion, bilateral Start: 04-23-2019 End: 04-23-2019 Subsequent hospital visit by physician Roni Dahl MD Work Phone: [facility] Laboratory Comment on above: Diarrhea of presumed infectious origin Start: 03-10-2018 End: 03-10-2018 Patient encounter [facility]RE[facility] Start: 03-10-2018 End: 03-11-2018 Patient encounter ANDREWS [facility] Start: 06-20-2017 End: 06-21-2017 Ambulatory JAMISON OWENS Facility[facility] Procedures Date Procedure Procedure Detail Performing Clinician Start: 12-22-2024 Urnls dip stick/tablet reagent auto microscopy John Paul Mayfield FANCY PACKER - MIS SPECIALIST Work Phone: Start: 08-28-2024 Comprehensive metabolic panel Reagan mcdowell MD Work Phone: Start: 08-28-2024 Lipid panel Reagan Pascal MD Work Phone: Start: 08-27-2024 Ecg routine ecg w/least 12 lds w/i&r Reagan Pascal MD Work Phone: Start: 07-10-2024 Radex ankle complete minimum 3 views Lexy Tapia MD Work Phone: Start: 06-24-2024 COVID-19, JYOTI Mei MD Work Phone: Start: 06-24-2024 Iaad ia streptococcus group a Monster Juarez MD Work Phone: Start: 05-08-2024 Mammography Christian MORROWC Work Phone: Start: 11-14-2023 Basic metabolic panel calcium total [...] Marvin Tapia MD Work Phone: Start: 07-01-2023 COVID-19JYOTI MD Work Phone: Start: 07-01-2023 Iaadiadoo influenza [...] 11-25-2022 Ct head/brain w/o contrast material Salomon Juares MD Work Phone: Start: 11-25-2022 Comprehensive metabolic panel Salomon gonzalez MD Work Phone: Start: 11-25-2022 Urinalysis microscopic only Salomon schreiber MD Work Phone: Start: 11-25-2022 Urnls dip stick/tablet rgnt auto w/o microscopy Salomon Juares MD Work Phone: Start: 08-29-2022 Radiologic exam [...] 11-30-2021 Radex shoulder complete minimum 2 views Christian Meyer DO Work Phone: Start: 10-26-2021 Urinalysis [...] 08-10-2021 Radex shoulder complete minimum 2 views Christian Meyer DO Work Phone: Start: 07-28-2021 Repair of musculotendinous cuff of shoulder Donna Spencer Start: 04-27-2021 Radex shoulder complete minimum 2 views Christian Meyer DO Work Phone: Start: 01-09-2021 Blood [...] Start: 08-11-2020 Comprehensive metabolic panel Reagan Arceo scotttomeka Work Phone: Start: 08-11-2020 Lipid panel Reagan [...] root of lumbar spine using fluoroscopic guidance [employer] Comment on above: LEFT L2-S1 11/17/14 Rt RFA 70% r elief Start: 11-03-2014 Radiofrequency ablation of nerve root of lumbar spine using fluoroscopic guidance [employer] Comment on above: RIGHT L2-S1 Start: 10-20-2014 Injection of facet joint using fluoroscopic guidance [employer] Comment on above: BILATERAL L3-S1 LUMBAR FACET Start: 08-11-2014 Local anesthetic facet joint nerve block [employer] Comment on above: Bilateral L3-S1 Start: 03-19-2014 Injection of sacroiliac joint using fluoroscopic guidance [employer] Comment on above: Bilateral SIJI Start: 03-23-2013 Injection of sacroiliac joint using fluoroscopic guidance [employer] Comment on above: Bilateral SIJI Start: 11-17-2012 Injection of sacroiliac joint using fluoroscopic guidance [employer] Comment on above: Left SIJI Start: 10-13-2012 Injection of sacroiliac joint using fluoroscopic guidance [employer] Comment on above: Right SIJI Start: 04-30-2012 Endoscopic examination of esophagus, stomach and duodenum [employer] Start: 11-16-2011 Epidural injection of lumbar spine using fluoroscopic guidance [employer] Comment on above: Left L5-S1 Start: 10-05-2011 Epidural injection of lumbar spine using fluoroscopic guidance [employer] Comment on above: Left L5-S1 Start: 08-27-2011 [...] Treatment Date Care Activity Detail Author Start: 02-27-2034 DTaP/Tdap/Td vaccine (2 - Td or Tdap) DTaP/Tdap/Td vaccine (2 - Td or Tdap) [facility] Start: 01-18-2026 Colon cancer screen colonoscopy Colon cancer screen colonoscopy [place], [place] Start: 01-18-2026 Screening for malignant neoplasm of colon Colon cancer screen colonoscopy [place], [place] Start: 12-23-2025 End: 12-23-2025 Patient encounter procedure 12/23/2025 8:30 AM EDT Office Visit [facility] Part of [address] [place] [address] John Paul Mayfield, FANCY PACKER - MIS SPECIALIST [address] [place] [address] [address] [place] [address] 1Y f/u [facility] Comment on above: 1Y f/u Start: 08-28-2025 Lipid panel Lipids [facility] Start: 08-20-2025 Depression Monitoring Depression Monitoring [facility] Start: 05-08-2025 Screening for malignant neoplasm of breast Mammogram [facility] Start: 03-17-2025 End: 03-17-2025 Patient encounter procedure 03/17/2025 9:00 AM EDT Office Visit [facility] [employer] [address] [place] [address] Reagan Pascal MD [address] [place] [address] [facility] [employer] Start: 03-01-2025 Influenza vaccination Influenza Vaccine (#1) [facility] Start: 02-17-2025 End: 02-17-2025 Patient encounter procedure 02/17/2025 9:20 AM EDT Office Visit [facility] [address] [place] [phone] Roni Dahl MD [address] [place] [address] 6 mos - HTN, Hyperlipidemia, Hypothyroid, gerd, dysthymia [facility] Comment on above: 6 mos - HTN, Hyperlipidemia, Hypothyroid , gerd, dysthymia Start: 11-26-2024 End: 11-26-2024 Patient encounter procedure 11/26/2024 9:30 AM EDT Office Visit [facility] [address] [place] [phone] Lexy Canales DPM [address] [place] [address] Arrived [facility] Comment on above: Arrived Start: 11-17-2024 End: 11-17-2024 Patient encounter procedure [facility] Comment on above: 1 year f/u, US prior-(make sure we have results, patient will be going out of town) 1 year f/u for blood in the urine, no testing prior per John Paul Start: 09-15-2024 End: 09-15-2024 Patient encounter procedure 09/15/2024 2:15 PM EDT Office Visit [facility] [address] [place] [phone] Lexy Canales DPM [address] [place] [address] [facility] Start: 08-31-2024 End: 08-31-2024 Patient encounter procedure 08/31/2024 9:00 AM EST Office Visit [facility] [address] [place] [phone] Reagan Pascal MD [address] [place] [address] 1 year follow up labs ekg cxr [facility] [facility] Comment on above: 1 year follow up labs ekg cxr Start: 08-20-2024 Lipid panel Lipids [facility] Start: 08-17-2024 End: 08-17-2024 Patient encounter procedure 08/17/2024 2:00 PM EST Office Visit [facility] [address] [place] [phone] Lexy Canales DPM [address] [place] [address] Arrived [facility] Comment on above: Arrived Start: 08-13-2024 End: 08-13-2024 Patient encounter procedure 08/13/2024 10:00 AM EST Office Visit [facility] [address] [place] [phone] Roni Dahl MD [address] [place] [address] AWV - 6 mos - HTN, Hyperlipidemia, Hypothyroid, gerd, afib [facility] Comment on above: AWV - 6 mos - HTN, Hyperlipidemia, Hypot hyroid, gerd, afib Start: 08-11-2024 Hemolytic complement CH50 level [facility] Start: 08-06-2024 Depression Monitoring [facility] Start: 05-07-2024 End: 05-07-2024 Patient encounter procedure 05/07/2024 9:30 AM EST Office Visit [facility] [address] [place] [address] Grayson Hutchinson Jr., DO [address] [place] [address] [facility] Start: 05-06-2024 Annual Wellness Visit (Medicare) Annual Wellness Visit (Medicare) [facility] [employer] Start: 05-06-2024 Depression Monitoring Depression Monitoring [facility] [employer] Start: 05-06-2024 Medicare Wellness Visit Medicare Wellness Visit [facility] Start: 03-23-2024 End: 03-23-2024 Patient encounter procedure 03/23/2024 11:00 AM EDT Office Visit [facility] [address] [place] [phone] John Paul Mayfield, FANCY PACKER - MIS SPECIALIST [address] [place] [address] Dr Romo [address] [place] [address] 1 year f/u, US prior [facility] Comment on above: 1 year f/u, [place] prior Start: 03-20-2024 End: 03-20-2024 Patient encounter procedure 03/20/2024 11:00 AM EDT Office Visit [facility] [address] [place] [address] John Paul Mayfield, FANCY PACKER - MIS SPECIALIST [address] [place] [address] Dr Romo [address] [place] [address] 1 year f/u, US prior-(make sure we have results, patient will be going out of town) [facility] of [facility] Comment on above: 1 year f/u, US prior-(make sure we have results, patient will be going out of town) Start: 03-18-2024 End: 03-18-2024 Patient encounter procedure 03/18/2024 1:00 PM EDT Appointment [facility] [address] [phone] epic/ sched w/ Anastasiya in office [facility] Comment on above: epic/ sched w/ Anastasiya in office Start: 03-01-2024 COVID-19 Vaccine () COVID-19 Vaccine ( season) [facility] Start: 03-01-2024 COVID-19 Vaccine ( season) COVID-19 Vaccine () [facility] Start: 02-11-2024 End: 02-11-2024 Patient encounter procedure 02/11/2024 8:00 AM EDT Office [facility] [address] [place] [phone] Roni Dahl MD [address] [place] [address] Appt Reason: Routine Existing Condition Follow Up [facility] Comment on above: Appt Reason: Routine Existing Condition Follow Up Start: 02-06-2024 Dual energy X-ray absorptiometry XR dexa axial skeleton [facility] Start: 02-06-2024 DXA Skeletal system.axial Views for bone density [facility] Start: 12-31-2023 Tetanus vaccination Tetanus: Every 10yrs [facility] Start: 12-19-2023 Hemolytic complement CH50 level [facility] Start: 12-12-2023 End: 12-12-2023 Patient encounter procedure 12/12/2023 10:00 AM EDT Office Visit [facility] [employer] [address] [place] [phone] Reagan Pascal MD [address] [place] [address] 3 wk f/u ED tachycardia & event monitor [facility] [facility] Comment on above: 3 wk f/u ED tachycardia & event monitor Start: 11-14-2023 End: 11-14-2023 Patient encounter procedure 11/14/2023 10:45 AM EDT Procedure visit [facility] [address] [facility] 2nd [place] [address] Glory Peña, PA-C [address] urogram [facility] Comment on above: cysto after CT urogram Start: 11-01-2023 Depression Monitoring Depression Monitoring [facility] Start: 09-19-2023 Hemolytic complement CH50 [facility] Start: 09-02-2023 End: 09-02-2023 Patient encounter procedure [facility] [facility] Comment on above: 1 yr f/u lab/ekg/ Start: 08-21-2023 Lipid panel Lipids [facility] Start: 08-06-2023 End: 08-06-2023 Patient encounter procedure 08/06/2023 8:40 AM EST Office Visit [facility] [address] [place] [phone] Roni Dahl MD [address] [place] [address] 3 mos - Hyperlipidemia, depression, Hypothyroid, gerd, insomnia, sleep apnea, arthritis [facility] Comment on above: 3 mos - Hyperlipidemia, depression, Hypo thyroid, gerd, insomnia, sleep apnea, arthritis Start: 05-27-2023 Hemolytic complement CH50 [facility] Start: 05-09-2023 End: 05-09-2023 Patient encounter procedure 05/09/2023 11:30 AM EST Appointment [facility] [address] [place] [address] SELF REF/PT [facility] Comment on above: SELF REF/PT Start: 05-06-2023 End: 05-06-2023 [facility] Comment on above: Return in about 6 months (around 05/03/20) for Hyperlipidemia, Hypothyroid, depression, gerd, arthritis and MEDICARE wellness Start: 05-04-2023 Annual Wellness Visit (AWV) Annual Wellness Visit (AWV) [facility] Start: 05-03-2023 Depression Monitoring Depression Monitoring [facility] Start: 05-03-2023 History and physical examination, annual for health maintenance Wellness Visit [facility] Start: 03-22-2023 End: 03-22-2023 Patient encounter procedure [facility] Comment on above: 3 month f/u, US results Start: 03-20-2023 End: 03-20-2023 Patient encounter procedure 03/20/2023 Office Visit [facility] Start: 03-19-2023 [facility] Start: 03-13-2023 End: 03-13-2023 Patient encounter procedure 03/13/2023 Appointment Radiology Yanelis Guzman MD [address] [facility], [address] [place] [phone] [facility] Start: 03-01-2023 COVID-19 Vaccine ( season) COVID-19 Vaccine ( season) [facility] Start: 03-01-2023 Influenza vaccination Sequential Influenza Vaccine (#1) [facility] Start: 01-29-2023 Influenza vaccination Flu vaccine (#1) [facility] Start: 12-21-2022 End: 12-21-2022 Patient encounter procedure 12/21/2022 Office Visit [facility] Start: 10-31-2022 End: 10-31-2022 Patient encounter procedure 10/31/2022 Office Visit Family Medicine Roni Dahl MD [address] [place] [address] [facility] Start: 09-05-2022 COVID-19 Vaccine (5 - Moderna series) COVID-19 Vaccine (5 - Moderna series) [facility] Start: 09-03-2022 End: 09-03-2022 Patient encounter procedure [facility] [facility] Start: 08-29-2022 Lipid panel [facility] Start: 08-29-2022 Thyroid stimulating hormone measurement [facility] Start: 08-21-2022 Bacteria identified in Urine by Culture [facility] Start: 08-21-2022 Hemolytic complement CH50 level [facility] Start: 07-31-2022 End: 07-31-2022 Patient encounter procedure 07/31/2022 Appointment Physical Therapy Maria R Malhotra, PT [facility] Start: 07-17-2022 [facility] Start: 07-03-2022 [facility] Start: 07-03-2022 Radiofrequency destruction of peripheral nerve DH Nerve Radio Frequency (Left) [facility] Start: 05-29-2022 [facility] Start: 05-03-2022 Annual Wellness Visit (AWV) Annual Wellness Visit (AWV) [facility] Start: 05-03-2022 End: 05-03-2022 Patient encounter procedure 05/03/2022 Office Visit Family Medicine Roni Dahl MD [address] [place] [address] [facility] Start: 05-02-2022 Depression Monitoring Depression Monitoring [facility] Start: 03-27-2022 [facility] Start: 03-01-2022 Influenza vaccination Flu vaccine (#1) [facility] Start: 10-31-2021 End: 10-31-2021 Patient encounter procedure 10/31/2021 Appointment Physical Therapy Zo Chen, PT [address] [place] [address] [facility] Physical Therapy Start: 10-26-2021 COVID-19 Vaccine (4 - Booster for Moderna series) COVID-19 Vaccine (4 - Booster for Moderna series) [facility] Start: 10-11-2021 End: 10-11-2021 Patient encounter procedure 10/11/2021 Appointment Physical Therapy Zo Chen, PT [address] [place] [address] [facility] Start: 10-09-2021 End: 10-09-2021 Patient encounter procedure 10/09/2021 Appointment Physical Therapy Velasquez Martel PTA [facility] Start: 10-04-2021 End: 10-04-2021 Patient encounter procedure 10/04/2021 Appointment Physical Therapy Zo Chen, PT [address] [place] [address] [facility] Start: 10-02-2021 End: 10-02-2021 [...] Zo Chen, PT [address] [place] [address] [facility] Start: 09-15-2021 End: 09-15-2021 Patient encounter procedure 09/15/2021 Appointment Physical Therapy Velasquez Martel PTA [facility] Start: 09-13-2021 End: 09-13-2021 Patient encounter procedure 09/13/2021 Appointment Physical Therapy Martel, Velasquez, [employer] [facility] Start: 09-08-2021 End: 09-08-2021 Patient encounter procedure 09/08/2021 Appointment Physical Therapy Zo Chen, PT [address] [place] [address] [facility] Start: 09-07-2021 Subsequent hospital visit by physician 09/07/2021 Hospital Encounter Physical Therapy Nancy Nunez [facility] Start: 09-05-2021 End: 09-05-2021 Patient encounter procedure 09/05/2021 Appointment Physical Therapy Velasquez Martel [employer] [facility] Start: 09-04-2021 End: 09-04-2021 Patient encounter procedure [facility] Start: 08-31-2021 End: 08-31-2021 Patient encounter procedure 08/31/2021 Appointment Physical Therapy Velasquez Martel PTA [facility] Start: 08-17-2021 Subsequent hospital visit by physician 08/17/2021 Hospital Encounter Physical Therapy Zo Chen, PT [address] [place] [address] [facility] Start: 08-11-2021 Lipid panel Lipid screen [facility] Start: 08-11-2021 Thyroid stimulating hormone measurement TSH testing [facility] Start: 08-11-2021 TSH Qn TSH testing [facility] Work Phone: Start: 08-02-2021 End: 08-02-2021 Patient encounter procedure [facility] Start: 06-29-2021 End: 06-29-2021 Patient encounter procedure 06/29/2021 Appointment Physical Therapy Zo Chen, PT [address] [place] [address] [facility] Start: 06-26-2021 End: 06-26-2021 Patient encounter procedure 06/26/2021 Appointment Physical Therapy Zo Chen, PT [address] [place] [address] [facility] Start: 06-22-2021 End: 06-22-2021 Patient encounter procedure 06/22/2021 Appointment Physical Therapy Zo Chen, PT [address] [place] [address] [facility] Start: 06-20-2021 End: 06-20-2021 Patient encounter procedure 06/20/2021 Appointment Physical Therapy Zo Chen, PT [address] [place] [address] [facility] Start: 06-14-2021 End: 06-14-2021 Patient encounter procedure 06/14/2021 Appointment Physical Therapy Zo Chen, PT [address] [place] [address] [facility] Start: 05-17-2021 End: 05-17-2021 [...] Zo Chen, PT [address] [place] [address] [phone] [facility] Start: 05-02-2021 End: 05-02-2021 Patient encounter procedure 05/02/2021 Office Visit Family Medicine Roni Dahl MD [address] [facility] [place] [address] [phone] [facility] Start: 05-02-2021 End: 05-02-2021 Patient encounter procedure 05/02/2021 Appointment Physical Therapy Rashmi Garcia [facility] Start: 04-21-2021 Annual Wellness Visit (AWV) Annual Wellness Visit (AWV) [place] Start: 03-31-2021 TSH Qn TSH testing [place] Start: 03-01-2021 Influenza vaccination Flu vaccine (#1) [facility] [employer] Phone: Start: 02-23-2021 COVID-19 Vaccine (3 - Booster for Moderna series) COVID-19 Vaccine (3 - Booster for Moderna series) [facility] Start: 01-30-2021 End: 01-30-2021 Office Visit 01/30/2021 Office Visit Family Medicine Roni Dahl MD [address] [place] [address] [phone] [facility] Start: 01-18-2021 Screening for malignant neoplasm of colon Colon cancer screen colonoscopy [place], [place] Start: 09-06-2020 End: 09-06-2020 Office Visit 09/06/2020 Office Visit Cardiology Reagan Pascal MD [address] [place] [address] [facility] [employer] Start: 07-28-2020 End: 07-28-2020 Office Visit [facility] Start: 07-11-2020 End: 07-11-2020 Office Visit 07/11/2020 Office Visit Cardiology Reagan Pascal MD [address] [place] [address] [facility] Start: 07-07-2020 Lipid panel Lipid screen [place], [place] Start: 07-07-2020 Lipid screen Lipid screen [facility] Phone: Start: 07-07-2020 TSH Qn TSH testing [place], [place] Start: 07-07-2020 TSH testing TSH testing [facility] Phone: Start: 05-10-2020 Shingles Vaccine (3 of 3) Shingles Vaccine (3 of 3) [place], [place] Start: 04-14-2020 Annual Wellness Visit (AWV) Annual Wellness Visit (AWV) [place] Start: 04-13-2020 Annual Wellness Visit (AWV) Annual Wellness Visit (AWV) [place] Start: 03-13-2020 Breast cancer screen Breast cancer screen [place], [place] Start: 03-13-2020 Screening for malignant neoplasm of breast Breast cancer screen [place] Start: 01-25-2020 End: 01-25-2020 Office Visit 01/25/2020 Office Visit Family Roni Villegas MD [address] [place] [address] [phone] [facility] Start: 12-19-2019 Respiratory Syncytial Virus Immunization: Risk, 60-74 Risk, or 75+ (1 - 1-dose 75+ series) Respiratory Syncytial Virus Immunization: Risk, 60-74 Risk, or 75+ (1 - 1-dose 75+ series) [facility] Start: 07-30-2019 End: 07-30-2019 Office Visit 07/30/2019 Office Visit Family Roni Villegas MD [address] [place] [address] [phone] [facility] Start: 07-27-2019 End: 07-27-2019 Patient encounter procedure 07/27/2019 Office Visit Family Roni Villegas MD [address] [place] [address] [phone] [facility] Start: 07-13-2019 End: 07-13-2019 Office Visit 07/13/2019 Office Visit Cardiology Reagan Pascal MD [address] [place] [address] [phone] [facility] [employer] Start: 07-09-2019 Lipid screen Lipid [place] Start: 07-09-2019 TSH testing TSH testing [place], [place] Start: 12-31-2013 DTaP/Tdap/Td vaccine (1 - Tdap) DTaP/Tdap/Td vaccine (1 - Tdap) [facility] Start: 12-19-2011 Shingles Vaccine (2 of 3) Shingles Vaccine (2 of 3) [place], [place] Start: 2009 Fall risk assessment Falls Risk Assessment [facility] Start: 2004 Respiratory Syncytial Virus (RSV) or age 60 yrs+ (1 - 1-dose 60+ series) Respiratory Syncytial Virus (RSV) or age 60 yrs+ (1 - 1-dose 60+ series) [facility] Start: 1984 Screening for malignant neoplasm of breast Mammogram [facility] Start: 12-19-1963 DTaP/Tdap/Td vaccine (1 - Tdap) DTaP/Tdap/Td vaccine (1 - Tdap) [place], [place] Start: 1962 Hepatitis C screening [facility] Start: 1960 COVID-19 Vaccine (1 of 2) COVID-19 Vaccine (1 of 2) [place], [place] Start: 1956 Depression screening using PHQ-9 (Patient Health Questionnaire 9) score [facility] Start: 12-19-1955 DTaP/Tdap/Td vaccine (1 - Tdap) DTaP/Tdap/Td vaccine (1 - Tdap) [place], [place] Start: 1944 Hepatitis C screen Hepatitis C screen [place], [place] Start: 1944 Hepatitis C screening Hepatitis C screen [facility] Start: 1944 Screening for osteoporosis Dexa Scan [facility] Complement C3 [Mass/volume] in Serum or Plasma [facility] Complement C3 [Mass/volume] in Serum or Plasma [facility] Complement C3 [Mass/volume] in Serum or Plasma [facility] Complement C3 [Mass/volume] in Serum or Plasma [facility] Complement C3 [Mass/volume] in Serum or Plasma [facility] Complement C4 [Mass/volume] in Serum or Plasma [facility] Complement C4 [Mass/volume] in Serum or Plasma [facility] Complement C4 [Mass/volume] in Serum or Plasma [facility] Complement C4 [Mass/volume] in Serum or Plasma [facility] Complement C4 [Mass/volume] in Serum or Plasma [facility] End: 06-29-2020 COVID-19 COVID-19 Lab Routine Once for 1 Occurrences starting 06/29/2020 until 06/29/2020 [facility] [place] Comment on above: Once for 1 Occurrences starting 06/29/20 20 until 06/29/2020 COVID-19 COVID-19 Lab Rou dane 06/29/2020 11:25 AM EST [place] End: 06-12-2021 COVID-19 Native Phone: Comment on above: 1 Occurrences starting 06/12/2021 until 06/12/2021 End: 03-31-2020 Covid-19 Ambulatory Covid-19 Ambulatory Lab Routine Viral illness Exposure to COVID-19 virus 1 Occurrences starting 03/31/2020 until 03/31/2020 [place] Comment on above: 1 Occurrences starting 03/31/2020 until 03/31/2020 Covid-19 Ambulatory Covid-19 Amb ulatory Lab Routine Viral illness Exposure to COVID-19 virus 03/31/2020 1:26 PM EDT [place], [place] CT Head WO Contrast CT Head WO C ontrast Imaging STAT 11/25/2022 10:53 AM EDT [facility] [place] Naked Phone: CT SINUS WO CONTRAST CT SINUS WO CONTRAST Imaging STAT 11/25/2022 10:55 AM EDT [facility] [place] Naked Phone: End: 10-26-2021 Culture, Genital Native Phone: Comment on above: 1 Occurrences starting 10/26/2021 until 10/26/2021 End: 11-18-2020 Culture, Urine Culture, Urine Microbiology Routine Once for 1 Occurrences starting 11/18/2020 until 11/18/2020 Native Phone: Comment on above: Once for 1 Occurrences starting 11/19/19 21 until 11/18/2020 Culture, Urine Culture, Urine Microbiology Routine 11/18/2020 8:31 AM EDT Native Phone: End: 10-14-2021 Culture, Urine Native Phone: Comment on above: Once for 1 Occurrences starting 10/15/19 until 10/14/2021 End: 08-27-2024 Culture, Urine [facility] Comment on above: 1 Occurrences starting 08/27/2024 until 08/27/2024 End: 10-26-2021 Cytopathology procedure, preparation of smear, genital source [facility] Lab Routine Women's annual routine gynecological examination 1 Occurrences starting 10/26/2021 until 10/26/2021 Native Phone: Comment on above: 1 Occurrences starting 10/26/2021 until 10/26/2021 End: 05-08-2024 DBT Breast - bilateral screening [facility] Comment on above: 1 Occurrences starting 05/08/2024 until 05/08/2024 EKG 12 Lead Native Phone: EKG 12 Lead EKG 12 Lead ECG Routine Essential hypertension Palpitations Hypothyroidism, unspecified type Hyperlipidemia, unspecified hyperlipidemia type Vitamin D deficiency disease 08/29/2021 7:22 AM EST Native Phone: EKG 12 Lead EKG 12 Lead ECG STAT 10/23/2023 9:56 AM EDT [facility] EKG 12 Lead EKG 12 Lead ECG STAT 10/23/2023 12:15 PM EDT [facility] EKG 12 Lead EKG 12 Lead ECG Routine 11/14/2023 6:42 PM EDT [facility] EKG 12 Lead EKG 12 Lead ECG Routine Essential hypertension Palpitations Hyperlipidemia, unspecified hyperlipidemia type Hypothyroidism, unspecified type Vitamin D deficiency disease 08/27/2024 10:48 AM EST [facility] End: 11-27-2020 Gastrointestinal Panel, Molecular Gastrointestinal Panel, Molecular Microbiology Routine One Time for 1 Occurrences starting 11/27/2020 until 11/27/2020 Native Phone: Comment on above: One Time for 1 Occurrences starting 10/31 until 11/27/2020 Gastrointestinal [place], Molecular Gastrointestinal Panel, Molecular Microbiology STAT 11/27/2020 11:00 AM EDT [facility] [employer] Work Phone: End: 11-09-2019 ANA DIGITAL SCREEN W OR WO CAD BILATERAL ANA DIGITAL SCREEN W OR WO CAD BILATERAL Imaging Routine Visit for screening mammogram 1 Occurrences starting 11/09/2019 until 11/09/2019 [facility] above: 1 Occurrences starting 11/09/2019 until 11/09/2019 ANA DIGITAL SCREEN W OR WO CAD BILATERAL ANA DIGITAL SCREEN W OR WO CAD BILATERAL Imaging Routine Visit for screening mammogram 11/09/2019 11:37 AM EDT [facility] End: 01-20-2021 ANA WU DIGITAL SCREEN BILATERAL ANA WU DIGITAL SCREEN BILATERAL Imaging Routine Screening mammogram, encounter for 1 Occurrences starting 01/20/2021 until 01/20/2021 [facility] [place] Work Phone: Comment on above: 1 Occurrences starting 01/20/2021 until 01/20/2021 ANA WU DIGITAL SCR EEN BILATERAL ANA WU DIGITAL SCREEN BILATERAL Imaging Routine Screening mammogram, encounter for 01/20/2021 8:26 AM ED [facility] [employer] Work Phone: Patient Education [facility] Work Phone: Patient referral [facility] Work Phone: End: 08-27-2024 XR Chest 2 Views [facility] Comment on above: 1 Occurrences starting 08/27/2024 until 08/27/2024 XR CHEST STANDARD (2 VW) XR CHES T STANDARD (2 VW) Imaging STAT 05/30/2019 6:19 AM EST [facility] Immunizations Immunization Date Immunization Notes Care Provider Sierra paredes 03-31-2024 Seasonal trivalent influenza vaccine, adjuvanted, preservative free [facility] Room [facility] 03-31-2024 influenza virus vaccine, unspecified formulation Christian Lucio PA-C Work Phone: [facility] 05-06-2023 Influenza, FLUAD, (a ge 65 y+), Adjuvanted, 0.5mL Veselin Sigifredo MD [facility] Phone[facility] [employer] 05-08-2022 SARS-CoV-2 (COVID-19 ) [id number] Donnabaylee Jang[facility]oh[facility] 05-03-2022 influenza virus vaccine, unspecified formulation Donna Johanna [facility] Comment on above: Result Comment: 2021: VIS DATE: 02/03/2021 05-03-2022 Influenza, FLUAD, (a ge 65 y+), Adjuvanted, 0.5mL Maria R Malhotra PT [facility] Work Phone: 06-27-2021 COVID-19, Moderna, Booster, PF, 50mcg/0.25ml Mwh [facility] Work Phone: 05-02-2021 Influenza, Quadv, adjuvanted, 65 yrs +, IM, PF (Fluad) Rashmi Garcia [facility] 08-26-2020 COVID-19, Moderna, Primary or Immunocompromised, PF, 100mcg/0.5mL Mwh 1 [facility] [place] Work Phone: 07-29-2020 COVID-19, Moderna, Primary or Immunocompromised, PF, 100mcg/0.5mL Mwh 1 [facility] Work Phone: 05-12-2020 zoster vaccine recombinant [facility], [place] 03-15-2020 influenza virus vaccine, unspecified formulation [facility] R [facility] PT [facility] Work Phone: 03-15-2020 Influenza, High-dose , Quadv, 65 yrs +, IM (Fluzone) [facility], [place] 03-15-2020 influenza, injectabl e, quadrivalent, preservative free [facility] 03-15-2020 zoster vaccine recombinant [facility], [place] 04-14-2019 influenza virus vaccine, unspecified formulation Donna Doverz [facility] Comment on above: Result Comment: 2021: VIS DATE: 02/12/2019 04-14-2019 influenza, injectabl e, quadrivalent, preservative free [facility], [place] 04-07-2018 influenza virus vaccine, unspecified formulation Donna Jangmetz [facility] Comment on above: Result Comment: 2021: VIS DATE: 02/04/2015 04-07-2018 influenza, injectabl e, quadrivalent, preservative free [facility], [place] 04-10-2017 influenza virus vaccine, unspecified formulation [facility] 05-14-2016 influenza, high dose seasonal, preservative-free [facility] 03-01-2016 pneumococcal conjuga te vaccine, 13 valent [facility] 04-12-2015 influenza virus vaccine, unspecified formulation [facility] 04-24-2014 influenza virus vaccine, unspecified formulation [facility] 04-24-2014 influenza, whole Donna curry [facility] 12-30-2013 Td, unspecified formulation [facility] 12-30-2013 tetanus and diphther ia toxoids, adsorbed, preservative free, for adult use (2 Lf of tetanus toxoid and 2 Lf of diphtheria toxoid) Donna Spencer [facility] 12-30-2013 tetanus and diphther ia toxoids, adsorbed, preservative free, for adult use (5 Lf of tetanus toxoid and 2 Lf of diphtheria toxoid) Monster Mei MD Work Phone: [facility] 07-17-2013 influenza virus vaccine, unspecified formulation [facility] 07-17-2013 influenza, whole Donnabaylee Jangannette etz [facility] 10-24-2011 zoster vaccine, live [facility] [place] [place] 03-31-2011 pneumococcal polysaccharide vaccine, 23 valent Lexy Tapia [facility], [place] Payers Date Payer Category Payer Self-pay [id number] 2023 Managed Care HMO (unspecified) [employer] [id number] 2022 Private Health Insurance [id number] .[id number]. [id number] 2020 Private Health Insurance CLI [id number] 1.2.840.490324.1.13.239. 2.7.3.546012.315 2020 Private Health Insurance CLI [id number] 1.2.840.707063.1.13.239. 2.7.3.528674.315 2014 Medicare MEDICARE MEDICAR E PART A AND B xxxxxxxxxxx 2014-Present [phone] [place] [address] xxxxxxxxxxx 1.2.840.543748.1.13.239. 2.7.3.658804.315 2014 Unknown DUSTIN CHAN MAURITANIAN xxxxxxxxxx 2014-Present [phone] [address] [place] [address] xxxxxxxxxx 1.2.840.994729.1.13.239. 2.7.3.834534.315 2014 Unknown [id number] 1.2.840.700406.1.13.239. 2.7.3.916294.315 2009 Medicare 1.2.840.897216. 1.13.385. 2.7.3.681445.315 2009 Medicare [id number] 1.2.840.656100.1.13.239. 2.7.3.078048.315 1944 Unknown [id number] 2.16.840.1.081719.3.579. 2.903 1944 Unknown [id number] 2.16.840.1.109876.3.579. 2.903 1944 Unknown [id number] 2.16.840.1.855475.3.579. 2.727 1944 Unknown [id number] 2.16.840.1.971109.3.579. 2.727 1944 Unknown [id number] 2.16.840.1.113527.3.579. 2.174 1944 Unknown [id number] 2.16.840.1.802270.3.579. 2.174 1944 Unknown [id number] 2.16.840.1.178485.3.579. 2.174 1944 Unknown [id number] 2.16.840.1.714562.3.579. 2.174 1944 Unknown [id number] 2.16.840.1.481184.3.579. 2.174 1944 Unknown [id number] 2.16.840.1.077466.3.579. 2.174 1944 Unknown [id number] 2.16.840.1.809070.3.579. 2.174 1944 Unknown [id number] 2.16.840.1.954922.3.579. 2.174 1944 Unknown [id number] 2.16.840.1.006575.3.579. 2.174 1944 Unknown [id number] 2.16.840.1.565213.3.579. 2.174 1944 Unknown [id number] 2.16.840.1.815155.3.579. 2.174 1944 Unknown [id number] 2.16.840.1.006795.3.579. 2.174 1944 Unknown [id number] 2.16.840.1.622783.3.579. 2.174 1944 Unknown [id number] 2.16.840.1.341336.3.579. 2.174 1944 Unknown [id number] 2.16.840.1.272607.3.579. 2.174 1944 Unknown [id number] 2.16.840.1.098836.3.579. 2.1259 1944 Unknown [id number] 2.16.840.1.394441.3.579. 2.1259 1944 Unknown [id number] 2.16.840.1.692384.3.579. 2.1259 1944 Unknown [id number] 2.16.840.1.229428.3.579. 2.173 1944 Unknown [id number] 2.16.840.1.765820.3.579. 2.903 1944 Unknown [id number] 2.16.840.1.053589.3.579. 2.903 1944 Unknown [id number] 2.16.840.1.422066.3.579. 2.903 1944 Unknown [id number] 2.16.840.1.713431.3.579. 2.196 1944 Unknown [id number] 2.16.840.1.101134.3.579. 2.196 1944 Unknown [id number] 2.0.1.839189.3.579. 2.196 1944 Unknown [id number] 2.0.1.098674.3.579. 2.196 1944 Unknown [id number] 2.0.1.290435.3.579. 2.196 1944 Unknown [id number] 2.0.1.958290.3.579. 2.196 1944 Unknown [id number] 2.0.1.504981.3.579. 2. 1944 Unknown [id number] 2..1.473205.3.579. 2.196 Medicare supplementa l policy (as second payer) [employer] [employer] 1.2.840.506193.1.13.385. 2.7.9.822315.310.315 Unknown [id number] .1.437786.3.579. 2.531 Unknown [id number] .1.935247.3.579. 2.531 Unknown [id number] 2.1.690347.3.579. 2.531 Unknown [id number] 20.1.607218.3.579. 2.531 Social History Date Type Detail Facility Start: 05-30-2019 End: 05-02-2023 Tobacco smoking status MIIS Never smoker [facility] Start: 05-30-2019 End: 11-30-2024 Alcohol intake Current non-drinker of alcohol (finding) [facility] [place] Start: 1945 Sex Assigned At Not on file [place] Start: 03-31-2020 End: 05-02-2023 Tobacco use and exposure Never used [facility] [place] Exposure to SARS-CoV-2 (event) Yes [facility] [place] Start: 10-04-2021 End: 07-12-2022 Exposure to SARS-CoV-2 (event) Not sure [facility] [place] Start: 11-22-2020 End: 09-03-2022 History SDOH Financial 5 [facility] [place] Work Phone: Start: 11-22-2020 End: 09-03-2022 History SDOH Food Worry 1 [facility] [place] Work Phone: Start: 1945 Sex Assigned At Female [employer] Work Phone: Start: 04-14-2019 End: 02-05-2025 Alcohol intake No [facility] [place] Tobacco smoking status Never [facility] Start: 09-03-2022 End: 11-25-2022 History SDOH Alcohol Frequency 2 [facility] Work Phone: Start: 11-25-2022 History SDOH Alcohol Std Drinks 0 [facility] Work Phone: Start: 11-25-2022 End: 02-05-2025 History of Social function [facility] How often to you hav e a drink containing alcohol? Monthly or less [facility] How often do you hav e 6 or more drinks on 1 occasion? Never [facility] (I/We) worried whether (my/our) food would run out before (I/we) got money to buy more. Never true [facility] At any time in the past 12 months, were you homeless or living in senior care [including now]? No [facility] Start: 01-27-2021 Gender identity Identifies as female gender (finding) [facility] Start: 04-13-2020 Sexual orientation Heterosexual (fin ding) [facility] [employer] [facility] Start: 05-02-2023 End: 02-05-2025 Alcohol intake Ex-drinker (finding) [facility] Start: 08-10-2012 End: 08-12-2024 Sex Female (finding) [facility] Start: 02-03-2023 End: 11-26-2024 Alcoholic beverage intake Lifetime non-drinker (finding) [facility] Start: 02-03-2023 Alcohol Comment caffeine: 1-2 cups per day coffee [facility] NEGATED: Highlighted rowStart: NINF History of tobacco use [facility]ive [facility] Medical Equipment Procedure Code Equipment Code Equipment Origin al Text Equipment Identifier Dates Surgical procedure, using tension free vaginal tape, for stress incontinence [id number] FDA Start: 06-03-2019 Surgical procedure, using tension free vaginal tape, for stress incontinence [id number] FDA Start: 06-03-2019 Surgical procedure, using tension free vaginal tape, for stress incontinence [id number] FDA Start: 06-03-2019 Surgical procedure, using tension free vaginal tape, for stress incontinence [id number] FDA Start: 06-03-2019 Surgical procedure, using tension free vaginal tape, for stress incontinence [id number] FDA Start: 06-03-2019 Surgical procedure, using tension free vaginal tape, for stress incontinence [id number] FDA Start: 06-03-2019 Surgical procedure, using tension free vaginal tape, for stress incontinence [id number] FDA Start: 06-03-2019 Surgical procedure, using tension free vaginal tape, for stress incontinence [id number] FDA Start: 06-03-2019 Surgical procedure, using tension free vaginal tape, for stress incontinence [id number] FDA Start: 06-03-2019 Surgical procedure, using tension free vaginal tape, for stress incontinence [id number] FDA Start: 06-03-2019 Surgical procedure, using tension free vaginal tape, for stress incontinence [id number] FDA Start: 06-03-2019 Surgical procedure, using tension free vaginal tape, for stress incontinence [id number] FDA Start: 06-03-2019 Surgical procedure, using tension free vaginal tape, for stress incontinence [id number] FDA Start: 06-03-2019 Surgical procedure, using tension free vaginal tape, for stress incontinence [id number] FDA Start: 06-03-2019 Surgical procedure, using tension free vaginal tape, for stress incontinence [id number] FDA Start: 06-03-2019 Surgical procedure, using tension free vaginal tape, for stress incontinence [id number] FDA Start: 06-03-2019 Surgical procedure, using tension free vaginal tape, for stress incontinence [id number] FDA Start: 06-03-2019 {01}[id number] 7{17}[id number]{10}[id number] FDA Start: 07-28-2021 Goals Date Patient Goal Desired Activity /State Personal health goal Functional Status Date Assessment Result Facility 09-16-2023 Functional Status N/A [facility] 02-28-2023 Functional Status N/A [facility] 08-28-2022 Functional Status N/A [facility] 07-26-2022 Functional Status N/A [facility] 07-10-2022 Functional Status N/A [facility] Clinical Notes 11-18-2020 to 02-05-2025 Georges Barger PA-C - 02/05/2025 9:55 AM Christian Enriquez PA-C - 01/15/2025 9:54 AM Radha Cnaales DPM - 11/26/2024 9:30 AM Radha Canales DPM - 08/17/2024 2:00 PM EST Note Date & Type Note Facility 02-05-2025 Note Patient Name: [facility] Location: [address] [address] Date Of : Date Of Visit: 1945 02/05/2025 MRN# Provider: [id number] Georges Barger PA-C Chief Complaint Patient presents with Sore Throat 3 weeks. Sore throat, fatigue, bilateral ear itching, dizziness, post nasal drip, productive cough. Pt felt a little better with Augmentin during last visit then symptoms came back. Assessment & Plan 1. Cough, unspecified type XR Chest AP/PA and LAT doxycycline hyclate (VIBRAMYCIN) 100 MG capsule 2. Sore throat clotrimazole (MYCELEX) 10 mg anastasia 3. Nasal congestion doxycycline hyclate (VIBRAMYCIN) 100 [...] congestion, sore throat, cough. I do suspect oral thrush again so clotrimazole anastasia sent to pharmacy This office note has been dictated. This dictation was generated using [employer] voice recognition software. Please excuse any grammatical [...] her visit on January 15. At that time patient was diagnosed with bacterial URI and prescribed [...] Cuff Size: Adult) Pulse 76 Temp 98.5 degrees F (36.9 degrees C) (Oral) Resp 16 Wt 97.1 kg (214 lb) SpO2 97% BMI 36.73 kg/m Vision/Hearing Exam:No results found. Physical Exam Vitals [...] week). No orders to display Orders Placed (more content not included)... [facility] 02-05-2025 History of Present illness Narrative Images from the original note were not included. Patient Name: [facility] Location: [place] [address] [address] Date Of : Date Of Visit: 1945 02/05/2025 MRN# Provider: [id number] Georges Barger PA-C Chief Complaint Patient presents with Sore Throat 3 weeks. Sore throat, fatigue, bilateral ear itching, dizziness, post nasal drip, productive cough. Pt felt a little better with Augmentin during last visit then symptoms came back. Assessment & Plan 1. Cough, unspecified type XR Chest AP/PA and LAT doxycycline hyclate (VIBRAMYCIN) 100 MG capsule 2. Sore throat clotrimazole (MYCELEX) 10 mg anastasia 3. Nasal congestion doxycycline hyclate (VIBRAMYCIN) 100 [...] congestion, sore throat, cough. I do suspect oral thrush again so clotrimazole anastasia sent to pharmacy This office note has been dictated. This dictation was generated using [employer] voice recognition software. Please excuse any grammatical [...] her visit on January 15. At that time patient was diagnosed with bacterial URI and prescribed [...] Cuff Size: Adult) Pulse 76 Temp 98.5 F (36.9 C) (Oral) Resp 16 Wt 97.1 kg (214 lb) SpO2 97% BMI 36.73 kg/m Vision/Hearing Exam:No results found. Physical Exam Vitals [...] day . aspirin 81 MG EC tablet Aspir-81 Active betamethasone valerate (VALISONE) 0.1 % cream [...] 20 tablet 0 clotrimazole (MYCELEX) 10 mg anastasia Take1 (one) tablet (10 mg total)by mouth 5 (five) times a day for 10 days.Allow anastasia to dissolve slowly in the mouth. 50 tablet 0 doxycycline hyclate (VIBRAMYCIN) 100 MG capsule Take 1 (one) capsule (100 mg total) by mouth 2 (two) times a day for 10 days . 20 capsule 0 fexofenadine (ASHLEY) 180 MG tablet Take 1 (one) tablet (180 mg total) by mouth once . (Patient not taking: Reported on 02/05/2025 .) No current facility-administered medications for this visit. documented in this encounter [facility] 01-15-2025 Note Patient Name: [facility] Location: [address] [address] Date Of : Date Of Visit: 1945 01/15/2025 MRN# Provider: [id number] Christian Lucio PA-C Chief Complaint Patient presents with Cough 1 week. Productive cough, sore throat, bilateral ear fullness, headache, eye drainage, runny nose. Assessment & Plan 1. Bacterial URI 2. Dermatitis No follow-ups on file. Imaging N/A Medical Decision Making Bacterial URI: Will start on Augmentin 875-125 mg/tab. taken orally 2 times daily for 10 days. Patient reports getting oral thrush with Augmentin so given clotrimazole anastasia 10 mg to take 1 tablet 3 times a day while on antibiotic. Dermatitis: Patient reports not wanting to take oral steroids due to watching her sugar levels. Will be given a stronger steroid cream of betamethasone valerate 0.1% cream to apply topically daily to the rash. Patient educated on using the ointment for up to 2 weeks and then taking a break for at least a week in between as to not overuse the cream and damage the skin. Also advised not to use this cream on her face. She is advised if the rash continues to worsen or does not get better to come back in or follow-up with primary care doctor. Patient also educated on getting in contact with primary care doctor to discuss being on Claritin-D with a history of A-fib. Subjective 79 y.o. female presents with Cough (1 week. Productive cough, sore throat, bilateral ear fullness, headache, eye drainage, runny nose.) Patient is an 79-year-old female who comes in with upper respiratory symptoms and ear fullness and pain for about a week. She reports sinus pressure, congestion and drainage, ear fullness. sore throat, and a dry cough that have been worsening since it began a week ago. She also reports an itchy breast rash on her right upper breast that has been present for 2-weeks. For the upper respiratory symptoms she has tried Claritin-D, nasal saline, and Flonase with no relief of symptoms. For the rash she has tried an old steroid cream that she had from a few years ago with no relief of symptoms. She also reports a past medical history of A-fib and is taking blood thinners. Review Of Systems Review of Systems Constitutional: Negative for chills and fever. HENT: Positive for congestion, ear pain, sinus pressure and sore throat. Respiratory: Positive for cough. Negative for chest tightness, shortness of breath and wheezing. Cardiovascular: Negative for chest pain. Gastrointestinal: Negative for abdominal pain. Skin: Positive for rash. Reports a pruritic, rough rash on her upper right breast present for 2 weeks. Has been constant and has no discharge or ulceration. Medical History Past Medical History: Diagnosis Date Disease of thyroid gland Hyperlipidemia History reviewed. No pertinent surgical history. Problem List[1] Social History Social History[2] Family History Family History Problem Relation Age of Onset Diabetes Mother Diabetes Sister Diabetes Son Objective Physical Exam BP 133/80 (BP Location: Left arm, Patient Position: Sitting, BP Cuff Size: X-large Adult) Pulse 72 Temp 97.3 degrees F (36.3 degrees C) (Tympanic) Resp 16 Wt 96.2 kg (212 lb) SpO2 98% BMI 36.39 kg/m Vision/Hearing Exam:No results found. Physical Exam Constitutional: Appearance: Normal appearance. HENT: Right Ear: Ear canal and external ear normal. Left Ear: Ear canal and external ear normal. Ears: Comments: Tympanic membranes are bulging bilaterally Nose: Congestion present. Mouth/Throat: Mouth: Mucous membranes are moist. Pharynx: Oropharynx is clear. No oropharyngeal exudate or posterior oropharyngeal erythema. Eyes: Conjunctiva/sclera: Conjunctivae normal. Pupils: Pupils are equal, round, and reactive to light. Comments: No discharge noticed on eyes bilaterally Cardiovascular: Rate and Rhythm: Normal rate and regular rhythm. Pulmonary: Effort: Pulmonary effort is normal. Breath sounds: Normal breath sounds. Lymphadenopathy: Cervical: No cervical adenopathy. Skin: General: Skin is warm and dry. Findings: Erythema and rash present. Comments: Rash is an erythematous patch localized to the upper right breast, is nontender to palpation. No signs of any ulcerations, discharge, or masses. Procedure Notes Procedures Results No results found for this or any previous visit (from the past week). No orders to display Orders Placed This Visit No orders of the defined types were placed in this encounter. Medication List At End Of Visit Current Medications[3] There are no Patient Instructions on file for this visit. This note was partially created using voice recognition software and is inherently subject to errors including those of syntax and sound-alike substitutions which may escape proofreading. In such instances, original wilner (more content not included)... [facility] 01-15-2025 History of Present illness Narrative Images from the original note were not included. Patient Name: [facility] Location: Mary Jane Rios [address] [facility] [id number] Date Of : Date Of Visit: 1945 01/15/2025 MRN# Provider: [id number] Christian Lucio PA-C Chief Complaint Patient presents with Cough 1 week. Productive cough, sore throat, bilateral ear fullness, headache, eye drainage, runny nose. Assessment & Plan 1. Bacterial URI 2. Dermatitis No follow-ups on file. Imaging N/A Medical Decision Making Bacterial URI: Will start on Augmentin 875-125 mg/tab. taken orally 2 times daily for 10 days. Patient reports getting oral thrush with Augmentin so given clotrimazole anastasia 10 mg to take 1 tablet 3 times a day while on antibiotic. Dermatitis: Patient reports not wanting to take oral steroids due to watching her sugar levels. Will be given a stronger steroid cream of betamethasone valerate 0.1% cream to apply topically daily to the rash. Patient educated on using the ointment for up to 2 weeks and then taking a break for at least a week in between as to not overuse the cream and damage the skin. Also advised not to use this cream on her face. She is advised if the rash continues to worsen or does not get better to come back in or follow-up with primary care doctor. Patient also educated on getting in contact with primary care doctor to discuss being on Claritin-D with a history of A-fib. Subjective 79 y.o. female presents with Cough (1 week. Productive cough, sore throat, bilateral ear fullness, headache, eye drainage, runny nose.) Patient is an 79-year-old female who comes in with upper respiratory symptoms and ear fullness and pain for about a week. She reports sinus pressure, congestion and drainage, ear fullness. sore throat, and a dry cough that have been worsening since it began a week ago. She also reports an itchy breast rash on her right upper breast that has been present for 2-weeks. For the upper respiratory symptoms she has tried Claritin-D, nasal saline, and Flonase with no relief of symptoms. For the rash she has tried an old steroid cream that she had from a few years ago with no relief of symptoms. She also reports a past medical history of A-fib and is taking blood thinners. Review Of Systems Review of Systems Constitutional: Negative for chills and fever. HENT: Positive for congestion, ear pain, sinus pressure and sore throat. Respiratory: Positive for cough. Negative for chest tightness, shortness of breath and wheezing. Cardiovascular: Negative for chest pain. Gastrointestinal: Negative for abdominal pain. Skin: Positive for rash. Reports a pruritic, rough rash on her upper right breast present for 2 weeks. Has been constant and has no discharge or ulceration. Medical History Past Medical History: Diagnosis Date Disease of thyroid gland Hyperlipidemia History reviewed. No pertinent surgical history. Problem List[1] Social History Social History[2] Family History Family History Problem Relation Age of Onset Diabetes Mother Diabetes Sister Diabetes Son Objective Physical Exam BP 133/80 (BP Location: Left arm, Patient Position: Sitting, BP Cuff Size: X-large Adult) Pulse 72 Temp 97.3 F (36.3 C) (Tympanic) Resp 16 Wt 96.2 kg (212 lb) SpO2 98% BMI 36.39 kg/m Vision/Hearing Exam:No results found. Physical Exam Constitutional: Appearance: Normal appearance. HENT: Right Ear: Ear canal and external ear normal. Left Ear: Ear canal and external ear normal. Ears: Comments: Tympanic membranes are bulging bilaterally Nose: Congestion present. Mouth/Throat: Mouth: Mucous membranes are moist. Pharynx: Oropharynx is clear. No oropharyngeal exudate or posterior oropharyngeal erythema. Eyes: Conjunctiva/sclera: Conjunctivae normal. Pupils: Pupils are equal, round, and reactive to light. Comments: No discharge noticed on eyes bilaterally Cardiovascular: Rate and Rhythm: Normal rate and regular rhythm. Pulmonary: Effort: Pulmonary effort is normal. Breath sounds: Normal breath sounds. Lymphadenopathy: Cervical: No cervical adenopathy. Skin: General: Skin is warm and dry. Findings: Erythema and rash present. Comments: Rash is an erythematous patch localized to the upper right breast, is nontender to palpation. No signs of any ulcerations, discharge, or masses. Procedure Notes Procedures Results No results found for this or any previous visit (from the past week). No orders to display Orders Placed This Visit No orders of the defined types were placed in this encounter. Medication List At End Of Visit Current Medications[3] There are no Patient Instructions on file for this visit. This note was partially created using voice recognition software and is inherently subject to errors including those of syntax and sound-alike substitutions which may escape proofreading. In such instances, original meaning may be extrapolated by contextual derivation. [1] Patient Active Problem List Diagnosis Acute [...] day . aspirin 81 MG EC tablet Aspir-81 Active calcium carbonate (OS-ASHLY) 600 mg calcium (1,500 [...] (two) times a day . 20 tablet 0 betamethasone valerate (VALISONE) 0.1 % cream Apply topically daily . 30 g 0 clotrimazole (MYCELEX) 10 mg anastasia Take1 (one) tablet (10 mg total)by mouth 3 (three) times a day for 30 doses.Allow anastasia to dissolve slowly in the mouth. 30 Anastasia 0 famotidine (PEPCID) 20 MG tablet Take 1 (one) tablet (20 mg total) by mouth daily . fexofenadine (ASHLEY) 180 MG tablet Take 1 (one) tablet (180 mg total) by mouth once . (Patient not taking: Reported on 01/15/2025 .) multivitamin with minerals tablet Take 1 (one) tablet by mouth daily . No current facility-administered medications for this visit. documented in this encounter [facility] 11-26-2024 History of Present illness Narrative Mary Jane Rios is a 78 y.o. female presents with chief complaint of Follow-up (RT ankle pain) HPI: Lower Extremity Issue The symptoms are aggravated by weight bearing. Recheck sprained rgt ankle 07/07/2024. No current pain and is back to doing normal walking. No pain last few weeks, balance concern. Activities without restrictions. Chronic dropfoot rt SUBJECTIVE: MEDICATIONS: Current Outpatient Medications Medication Instructions aspirin 81 mg, Daily RT calcium carbonate 600 mg, 2 times daily with meals cholecalciferol (VITAMIN D-3) 2,000 Units citalopram (CELEXA) 20 mg, Daily RT cyanocobalamin (Vitamin B-12) 1000 MCG tablet 1 tablet, Daily Docusate Sodium (DSS) 100 MG capsule 1 capsule, Daily estradiol (ESTRACE) 1 g famotidine (PEPCID) 20 mg fluticasone (Flonase) 50 MCG/ACT nasal spray 1 spray, Daily levothyroxine (Synthroid, Levoxyl) 50 MCG tablet pantoprazole (PROTONIX) 20 mg pilocarpine (SALAGEN) 5 mg, 3 times daily pravastatin (PRAVACHOL) 40 mg, Daily RT tiZANidine (ZANAFLEX) 2 mg, Oral, Every 8 hours PRN Topiramate (TOPAMAX PO) 50 mg traMADol ER (Ultram-ER) 100 MG 24 hr tablet Daily PRN ALLERGIES: Allergies Allergen Reactions Triamterene Rash Elemental Sulfur Itching Gluten Meal GI intolerance and Itching Morphine Other and GI intolerance Other reaction(s): Hallucinating, vomiting Wheat Itching Wheat gluten Escitalopram Itching and Rash Other reaction(s): Redness of Skin Hydrochlorothiazide Rash Ibuprofen Rash and GI intolerance Latex Itching and Rash Added based on information entered during case entry, please review and add reactions, type, and severity as needed Sulfa Antibiotics Itching, Hives and Rash hands red Sulfamethoxazole-Trimethoprim Rash REVIEW OF SYMPTOMS: Review of Systems Constitutional: Negative for chills and fever. Respiratory: Negative for shortness of breath. Cardiovascular: Negative for chest pain. Gastrointestinal: Negative for abdominal pain. Neurological: Negative for dizziness. Psychiatric/Behavioral: Negative for confusion. OBJECTIVE: Visit Vitals Ht 5' 4.5 Wt 212 lb BMI 35.83 kg/m Smoking Status Never BSA 2.09 m Physical Exam Foot Exam General General Appearance: appears stated age and healthy Orientation: alert and oriented to person, place, and time Right Foot/Ankle Inspection and Palpation Ecchymosis: none Tenderness: none Swelling: none Arch: normal Hammertoes: second toe, third toe, fourth toe and fifth toe Hallux valgus: no Hallux limitus: no Skin Exam: skin intact; minimal edema lat ankle. Neurovascular Dorsalis pedis: 3+ Posterior tibial: 3+ Saphenous nerve sensation: normal Tibial nerve sensation: normal Superficial peroneal nerve sensation: normal Deep peroneal nerve sensation: normal Sural nerve sensation: normal Achilles reflex: 2+ Babinski reflex: 2+ Muscle Strength Ankle dorsiflexion: 4+ Ankle plantar flexion: 5 Ankle inversion: 5 Ankle eversion: 4+ Great toe extension: 5 Great toe flexion: 5 Range of Motion- Good ROM STJ/Ankle Normal right ankle ROM- 6 deg Good painfree ROM and improved strength, ATF mild looseness. Good strength Left Foot/Ankle Inspection and Palpation Ecchymosis: none Tenderness: none Swelling: none Arch: normal Hammertoes: second toe, third toe, fourth toe and fifth toe Claw toes: absent Hallux valgus: no Hallux limitus: no Skin Exam: skin intact; Neurovascular Dorsalis pedis: 3+ Posterior tibial: 3+ Saphenous nerve sensation: normal Tibial nerve sensation: normal Superficial peroneal nerve sensation: normal Deep peroneal nerve sensation: normal Sural nerve sensation: normal Achilles reflex: 2+ Babinski reflex: 2+ Muscle Strength Ankle dorsiflexion: 5 Ankle plantar flexion: 5 Ankle inversion: 5 Ankle eversion: 5 Great toe extension: 5 Great toe flexion: 5 Range of Motion Normal left ankle ROM ASSESSMENT AND PLAN: Assessment/Plan Grade 2 ankle sprain rt, good progress- ankle instability with 3 injuries in last 6 mo. Chronic short rt leg with sole buildup, footdrop Cont Home rehab to prevent recurrence ANKLE BRACE: multi-ligament support device for triplane correction, control of ankle and subtalar joint and increased stability of ankle and subtalar joint was fitted and dispensed and adjusted with instructions for proper use and care. This will allow independent ambulation and it is medically necessary for this condition, diagnosis and symptoms. A receipt for this is on file and was signed. Pt agrees that it is comfortable and was able to ambulate without distress. At this point the device was suitable and not substandard. Cont prn Ankle Home PT: home exercise plan reviewed for ROM, strength and balance with written and oral instr after pt able to demonstrate , incr walking and balance training No restrictions- balance home rehab planned and reviewed documented in this encounter [facility] 08-17-2024 History of Present illness Narrative Mary Jane Rios is a 78 y.o. female presents with chief complaint of Ankle Pain (Rgt Ankle pain) HPI: HPI Pt states she sprained rgt ankle 07/07/2024 but does not know how it happened. Saw Dr Bello Abebe's, INFORMATION LEAD in [place] for this and was given tall boot. She wore this for 3 weeks. She Wraps with bang bandage now. Pain 4-03/10 She is doing exercises on her own to help with ROM. Has shooting pains random. She states she had sx years ago on this ankle d/t an old injury. SUBJECTIVE: MEDICATIONS: Current Outpatient Medications Medication Instructions ALPRAZolam (XANAX) 0.5 mg, Oral, Nightly amoxicillin-clavulanate (Augmentin) 875-125 MG tablet aspirin 81 mg, Oral, Daily RT calcium carbonate 600 mg, Oral, 2 times daily with meals cholecalciferol (VITAMIN D-3) 2,000 Units, Oral citalopram (CELEXA) 20 mg, Oral, Daily RT cyanocobalamin (Vitamin B-12) 1000 MCG tablet 1 tablet, Oral, Daily Docusate Sodium (DSS) 100 MG capsule 1 capsule, Oral, Daily estradiol (ESTRACE) 1 g, Vaginal famotidine (PEPCID) 20 mg, Oral fexofenadine-pseudoephedrine ER (Ashley-D) 60-120 MG 12 hr tablet 1 tablet, Oral, 2 times daily fluticasone (Flonase) 50 MCG/ACT nasal spray 1 spray, Nasal, Daily levothyroxine (Synthroid, Levoxyl) 50 MCG tablet TAKE 1 TABLET EVERY DAY FOR HYPOTHYROIDISM pantoprazole (PROTONIX) 20 mg, Oral pilocarpine (SALAGEN) 5 mg, Oral, 3 times daily pravastatin (PRAVACHOL) 40 mg, Oral, Daily RT predniSONE (Deltasone) 20 MG tablet tiZANidine (ZANAFLEX) 2 mg, Oral, Every 8 hours PRN Topiramate (TOPAMAX PO) 50 mg, Oral ALLERGIES: Allergies Allergen Reactions Triamterene Rash Elemental Sulfur Itching Gluten Meal GI intolerance and Itching Morphine Other and GI intolerance Other reaction(s): Hallucinating, vomiting Wheat Itching Wheat gluten Escitalopram Itching and Rash Other reaction(s): Redness of Skin Hydrochlorothiazide Rash Ibuprofen Rash and GI intolerance Latex Itching and Rash Added based on information entered during case entry, please review and add reactions, type, and severity as needed Sulfa Antibiotics Itching, Hives and Rash hands red Sulfamethoxazole-Trimethoprim Rash REVIEW OF SYMPTOMS: Review of Systems Constitutional: Negative for chills and fever. Respiratory: Negative for shortness of breath. Cardiovascular: Negative for chest pain. Gastrointestinal: Negative for abdominal pain. Neurological: Negative for dizziness. Psychiatric/Behavioral: Negative for confusion. OBJECTIVE: Visit Vitals BP 127/75 Pulse 70 Resp 18 Ht 5' 4.5 Wt 212 lb BMI 35.83 kg/m Smoking Status Never BSA 2.09 m Physical Exam Foot Exam General General Appearance: appears stated age and healthy Orientation: alert and oriented to person, place, and time Right Foot/Ankle Inspection and Palpation Ecchymosis: none Tenderness: none Swelling: none Arch: normal Hammertoes: second toe, third toe, fourth toe and fifth toe Hallux valgus: no Hallux limitus: no Skin Exam: skin intact; local edema lat ankle. Neurovascular Dorsalis pedis: 3+ Posterior tibial: 3+ Saphenous nerve sensation: normal Tibial nerve sensation: normal Superficial peroneal nerve sensation: normal Deep peroneal nerve sensation: normal Sural nerve sensation: normal Achilles reflex: 2+ Babinski reflex: 2+ Muscle Strength Ankle dorsiflexion: 5 Ankle plantar flexion: 5 Ankle inversion: 5 Ankle eversion: 5 Great toe extension: 5 Great toe flexion: 5 Range of Motion- limited STJ.Ankle Normal right ankle ROM- 0 deg POP most ATF,Cf, Ptf ligaments. ROM also - 5/5 nontender eversion. Minimal med ankle pain- no point tenderness malleoli Left Foot/Ankle Inspection and Palpation Ecchymosis: none Tenderness: none Swelling: none Arch: normal Hammertoes: second toe, third toe, fourth toe and fifth toe Claw toes: absent Hallux valgus: no Hallux limitus: no Skin Exam: skin intact; Neurovascular Dorsalis pedis: 3+ Posterior tibial: 3+ Saphenous nerve sensation: normal Tibial nerve sensation: normal Superficial peroneal nerve sensation: normal Deep peroneal nerve sensation: normal Sural nerve sensation: normal Achilles reflex: 2+ Babinski reflex: 2+ Muscle Strength Ankle dorsiflexion: 5 Ankle plantar flexion: 5 Ankle inversion: 5 Ankle eversion: 5 Great toe extension: 5 Great toe flexion: 5 Range of Motion Normal left ankle ROM ASSESSMENT AND PLAN: Assessment/Plan Grade 2 ankle sprain rt, healing slow- ankle instability with 3 injuries in last 6 mo. Chronic short rt leg with sole buildup [facility] films reviewed with pt and spouse RIGHT ANKLE BRACE FITTED AND DISPENSED TO PATIENT. Refusing Rx PT ANKLE BRACE: multi-ligament support device for triplane correction, control of ankle and subtalar joint and increased stability of ankle and subtalar joint was fitted and dispensed and adjusted with instructions for proper use and care. This will allow independent ambulation and it is medically necessary for this condition, diagnosis and symptoms. A receipt for this is on file and was signed. Pt agrees that it is comfortable and was able to ambulate without distress. At this point the device was suitable and not substandard. Ankle Home PT: home exercise plan reviewed for ROM, strength and balance with written and oral instr after pt able to demonstrate Comprgrip disp and ICE: cold therapy reviewed with multiple options and 10-20 min applications 2-3 times per day to affected area Limited activities until gait normal documented in this encounter [facility] 07-10-2024 Note PROCEDURE: XR ANKLE RIGHT (MIN 3 VIEWS) HISTORY: ankle pain COMPARISON: None. FINDINGS: BONES:No acute fracture, dislocation, or joint space narrowing. Small corticated ossifications adjacent the tip of the medial and lateral malleolar line compatible with sequela of remote injury. Large degenerative calcaneal plantar spur. SOFT TISSUES:No visible soft tissue swelling. EFFUSION:None visible. OTHER: Negative. [facility] 07[facility]10[facility] Note PROCEDURE: XR ANKLE RIGHT (MIN 3 VIEWS) HISTORY: ankle pain COMPARISON: None. FINDINGS: BONES:No acute fracture, dislocation, or joint space narrowing. Small corticated ossifications adjacent the tip of the medial and lateral malleolar line compatible with sequela of remote injury. Large degenerative calcaneal plantar spur. SOFT TISSUES:No visible soft tissue swelling. EFFUSION:None visible. OTHER: Negative. IMPRESSION: 1. No acute bone abnormality or significant degenerative joint disease. Interpreted by: Bello Leal MD Signed by: Bello Lael MD 07/10/24 Final result [facility] 06-24-2024 Hospital Discharge instructions Monster Mei MD - 06/24/2024 6:20 PM EST Vitamin D3 4000 units daily x 7 days Vitamin C 1000 mg Aspirin 81 mg daily The following attachments cannot be sent through Care Everywhere.COVID-19: High Risk for Serious Illness: General Info (Swedish)documented in this encounter [facility] 10-23-2023 Hospital Discharge instructions Lexy Tapia MD - 10/23/2023 10:48 [...] and blood thinners. 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 General instructions Take ddxd-uln-erlvxba and prescription medicines only as told by [...] provider. Document Revised: 12/27/2021 Document Reviewed: 12/27/2021 [employer] Patient Education 2022 [employer]. 09/16/2023 14:59:47 Diverticulosis MAGR (CUSTOM) Diverticulosis Many [...] unsweetened, w/added ascorbic acid 1 cup 0.5 [place] 1 cup 0.7 Vegetables Cooked Green beans 1 cup 4.0 Carrots 1/2 cup sliced 2.3 Peas 1 cup 8.8 Potato (baked, with skin) 1 medium potato 3.8 Raw [place] (with peel) 1 cucumber 1.5 Lettuce 1 [...] 8.7 Peanuts 1/2 cup 7.9 Chart from [employer] 2013. SEEK IMMEDIATE MEDICAL CARE IF: You [...] of Agriculture (USDA) National Nutrient Database at: http://www.[employer].usda.gov/fnic/f oodcomp/search/ Created using data from the USDA National Nutrient Database for Standard Reference. Available at http://www.[employer].Weeve.gov/fnic/f oodcomp/search/. Information adapted from: [employer] Patient Information 2010 [employer]. [employer] 2012 http://www.[employer]/debn ts/ztgottcatliz-rjfxbyv-gaaghh -the-basics 09/16/2023 14:59:47 Colon Polyps Colon Polyps Colon [...] hard liquor (44 mL). General instructions Take qajq-jga-nppaknt and prescription medicines only as told by [...] provider. Document Revised: 10/05/2020 Document Reviewed: 10/05/2020 [employer] Patient Education 2022 [employer]. Follow Up Care 02/28/2023 13:25:17 With:Davion Olivares Address: [address] [place] [address], [address] [phone] [phone] Business (1) When: Unknown Comments:office will call for follow up [facility] 09-16-2023 Evaluation + Plan note Extrac pepito from: Title:ANES Post General Author:Danny Abdies iology ()Obie Date:09/16/23 Plan Transfer/Discharge: Patient exhibiting no signs of N/V. Hydration status is adequate. Extracted from: Title:Danny Basic PRE Author:Danny Condon siology ()Obie Date:09/16/23 Plan [place] [employer] Anesthesiologists (ASA) physical status classification: Class III. Anesthetic Preoperative Plan: Anesthesia General. [facility]11-02-2023 Instructions* Patient Instructions* Grayson Hutchinson Jr., [...] for repeat hearing testing. documented in this [id number] History of Present illness Narrative* Mary Sue AuD - 05/02/2023 9:19 AM EDT Images from the original note were not included. [facility] [address] [place] [address] Name: Mary Jane Rios : 1945 Date: [...] for bilateral ear infection. She returned to [facility] and was told that herear was still infected. She reports her last hearing test several years ago in [place]. 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 Electronically Signed by: Oswaldo Blake, [facility] 05/02/23 9:19 AM documented in this [id number] History of Present illness Narrative* Grayson Hutchinson Jr., DO - 05/02/2023 8:57 AM EDT Images from the original note were not included. Subjective Patient ID: Mary Jane Rios is a 77 y.o. female. [employer], referral from Andre Rowe [facility] for otitis media. Patient states she has had left ear infections for most of her life. She was treated for ear infection with Augmentin in October. 3 weeks ago, woke up with extreme pain and was treated again for b/l ear infection. She returned to [facility] and was told thather ear was still infected. Last hearing test several years ago in [place]. 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 documented in this [id number] NoteChief Complaint: lbp and radicular pain right [...] current indications for surgical management [facility] NoteChief Complaint: lbp and radicular pain [...] preoperative surgical planning [facility]* Encounter Date Diagnosis Assessment Notes Treatment Notes Treatment Clinical Notes Mar, Piriformis syndrome of right side (ICD-10 - G57.01) [employer] Other 09-14-2023 Evaluation note* Encounter Date Diagnosis [...] note writ ten by John Merlos LPN, Paperhanger Assistant. Edited and approved by Dr. Yanelis Garcia MD. 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 This patient has no nerve root impingement adequate canal adequate foramen. Clinically she has an L5 radiculopathy on the right she has a negative Garrtet's sign but palpable posterior hip tenderness that is significant. I suspect that she is having sciatic nerve impingement at the posterior hip she states she has a bad hip it does not need to be replaced but there are areas of vxmv-qc-mtmw. My suspicion is that this is causing some nerve irritation I have no indication for doing back surgery I think injections in the spine will be of no benefit she is already had some and they have not helped. I think what needs to be injected or treated is the area around the hip. Mar, Right hip pain (ICD-10 - M25.551) [facility] Other 08-28-2023 Evaluation note* Encounter Date Diagnosis Assessment Notes Treatment Notes Treatment Clinical Notes Jan, Other spondylosis with radiculopathy, lumbar region (ICD-10 - M47.26) [employer] Other 08-17-2023 Evaluation note* Encounter Date Diagnosis Assessment Notes Treatment Notes Treatment Clinical Notes Jan, Other spondylosis with radiculopathy, lumbar region (ICD-10 - M47.26) [facility] Other 08-11-2023 Hospital Discharge instructions* Discharge Instructions* Keyshawn Suresh PA-C - 02/08/2023 4:26 PM EDT Follow-up with primary care doctor 7 to 10 days for reevaluation. Continue to wear corrective shoe as directed to prevent future sciatica low back pain events. Take [place] as directed. As we discussed, break a tab of [place] in half and take every 6 hours as needed for pain. Promptly return to emergency department for new, changing, worsening of symptoms or other concerns. * Attachments The following attachments cannot be sent through Care Everywhere. * Back Pain (Swedish) * Sciatica (Swedish) [facility]* Encounter Date Diagnosis Assessment [...] therapy. Follow above of treatment plan recommendations. [employer] Other 05-28-2023 History of Present illness Narrative* Zunilda Bullock RN - 11/25/2022 10:47 AM EDT Ticket to ride completed. The following information was reported off: Name Allergies Orientation Level Destination Safety Issues Code Status Oxygen Requirements Special needs including mobility, language, communication [facility] Work Phone: 1(876) 960-665002-28-2023 Hospital Discharge instructions Patient Education 08/28/2022 13:26:40 Gastroesophageal Reflux Disease, Adult Gastroesophageal Reflux Disease, Adult Gastroesophageal reflux (YOOK) happens when acid from the stomach flows [...] powder, vinegar, hot sauces, and barbecue sauce. ?[place] fruit juices and citrus fruits, such as oranges, kamilah, and limes. ?Tomato-based foods, such as red sauce, chili, salsa, and pizza with red sauce. ?Fried and fatty foods, such as donuts, indian fries, potato chips, and high-fat dressings. ?High-fat [...] to any changes in your symptoms. Take jahh-vgc-jpthjqs and prescription medicines only as told by [...] you have new or worsening symptoms. Take fgbg-lne-cfzmxgz and prescription medicines only as told by [...] 03/27/2006 Document Revised: 12/24/2018 Document Reviewed: 12/24/2018 [employer] Patient Education 2020 [employer]. Follow Up Care 08/15/2022 13:39:48 With:KHADAR STEINER, EMIL Ferrari, [facility] Address: [address] [place] [address]. [address] [place] [address] When:6 months Comments:Patient requests to be evaluated by Dr. Hernandez next visit. [facility] 01-31-2023 Evaluation note* Encounter [...] note writ ten by John Merlos LPN, Paperhanger Assistant. Edited and approved by Dr. Yanelis Garcia MD. [employer] Other 01-26-2023 Evaluation + Plan noteExtracted from: Title:ANES Pre-operative Note Author:Misha STEINER, R miryam S. Date:07/26/22 Plan [place] Society of Anesthesiologists (ASA) physical status classification: Class III. Anesthetic Preoperative Plan: Anesthesia General. [facility]01-26-2023 Hospital Discharge instructions Patient Education 07/26/2022 [...] what activities are safe for you. Take oazs-xkz-uuioigs and prescription medicines only as told by [...] 12/16/2012 Document Revised: 12/09/2018 Document Reviewed: 11/17/2018 [employer] Patient Education 2020 [employer]. Follow Up Care 07/10/2022 14:59:17 With:Vonda HERNANDEZ Address: [facility] [address] [place] [address] Business (1) When: Unknown Comments:Office will call date and time of follow-up appt. [facility]01-17-2023 Procedure [facility]01-12-2023 Hospital Discharge instructions* Discharge Instructions* Alma Mao DO - 07/12/2022 9:31 AM EST Go to your scheduled appt with your GI doctor for your scope. * Attachments The following attachments cannot be sent through Care Everywhere. * Sore Throat (Swedish) documented in this encounterBON [facility] Phone: [phone]) 202-173201-10-2023 Hospital Discharge instructions Patient Education 07/10/2022 14:24:54 [...] powder, vinegar, hot sauces, and barbecue sauce. ?[place] fruit juices and citrus fruits, such as oranges, kamilah, and limes. ?Tomato-based foods, such as red sauce, chili, salsa, and pizza with red sauce. ?Fried and fatty foods, such as donuts, indian fries, potato chips, and high-fat dressings. ?High-fat [...] to any changes in your symptoms. Take ngbt-bhf-zvawkvb and prescription medicines only as told by [...] you have new or worsening symptoms. Take aqda-agp-qehydnj and prescription medicines only as told by [...] 03/27/2006 Document Revised: 12/24/2018 Document Reviewed: 12/24/2018 [employer] Patient Education 2020 [employer]. Follow Up Care 06/26/2022 15:51:19 With:Donna Spencer CNP Address: When:1 to 2 weeks Comments:Following EGD. [facility] 12-14-2022 Evaluation note* Encounter [...] note writ ten by John Merlos LPN, Paperhanger Assistant. Edited and approved by Dr. Yanelis Garcia MD. [employer] Other 11-02-2022 Evaluation note* Encounter Date Diagnosis [...] note writ ten by Rush Toro MA, Paperhanger Assistant. Edited and approved by Dr. Yanelis Garcia MD. [employer] Other 10-10-2022 Evaluation note* Encounter Date Diagnosis [...] note writ ten by John Merlos LPN, Paperhanger Assistant. Edited and approved by Dr. Yanelis Garcia MD. [facility] [employer] Other 04-13-2022 History of Present illness Narrative* Zo Chen, PT - 10/11/2021 9:00 AM EDT Images from the original note were not included. [facility] Out[facility] Therapy Daily Note Date: 10/11/2021 Patient Name: Mary Jane Rios : 1945 (75 y.o.) Referring Practitioner: Dr. Meyer Referral Date : 08/10/21 Diagnosis: Right RCR repair Treatment Diagnosis: Right RCR Onset Date: 07/28/21 PT Insurance Information: [facility] Total # of Visits Approved: 18 [...] 35 deg @ 90 deg - MET Instructional Design Consultant Goals - Time Frame for terminal superintendent goals : 18 visits terminal superintendent goal 1: PROM flexion 150 deg and abduction 140 deg- MET intermediate goal 2: PROM ER 50 deg and IR 60 deg (@ 90 deg )- MET intermediate goal 3: Functionally elevate right shoulder to reach behind head for self care/hair care-MET intermediate goal 4: Functionally reach behind back to don coat or bra- NOT MET terminal superintendent goal 5: Strength right shoulder/UE to carry gallon of milk- MET Post Treatment Pain: 08/10 Time In: 0900 Time Out : 0950 Timed Code Treatment Minutes: 45 Minutes Total Treatment Time: 50 Minutes ZO CHEN PT Date: 10/11/2021 documented [facility] this [facility] Work Phone: 1(921) 622-911104-13-2022 Hospital course Narrative* Zo Chen PT - 10/11/2021 9:00 AM EDT Images from the original note were not included. [facility] Discharge Summary Patient: Mary Jane Rios : 1945 Referring Practitioner: Dr. Meyer Diagnosis: Right RCR repair Date Treatment Initiated: 04/28/22 Date of Last Treatment: 10/11/21 PT Visit Information Onset Date: 07/28/21 PT Insurance Information: [facility] Total # of Visits Approved: 18 [...] CHEN, PT Date: 10/11/2021 documented [facility] this [facility] [place] Work Phone: 1(353) 698-204104-06-2022 History of Present illness Narrative* Zo Chen PT - 10/04/2021 11:15 AM EDT Images from the original note were not included. [facility] Out[facility] Therapy Daily Note Date: 10/04/2021 Patient Name: Mary Jane Rios : 1945 (75 y.o.) Referring Practitioner: Dr. Meyer Referral Date : 08/10/21 Diagnosis: Right RCR repair Treatment Diagnosis: Right RCR Onset Date: 07/28/21 PT Insurance Information: MCR Total # of Visits Approved: 18 Per [...] 35 deg @ 90 deg - MET Instructional Design Consultant Goals - Time Frame for terminal superintendent goals : 18 visits terminal superintendent goal 1: PROM flexion 150 deg and abduction 140 deg terminal superintendent goal 2: PROM ER 50 deg and IR 60 deg (@ 90 deg ) terminal superintendent goal 3: Functionally elevate right shoulder to reach behind head for self care/hair care terminal superintendent goal 4: Functionally reach behind back to don coat or bra intermediate goal 5: Strength right shoulder/UE to carry gallong of milk Post Treatment Pain: 10 Time In: 1115 Time Out : 1200 Timed Code Treatment Minutes: 45 Minutes Total Treatment Time: 45 Minutes ZO CHEN PT Date: 10/04/2021 documented in this encounterGal[facility] HospitalMia[facility] Phone: [phone]) 559-206403-28-2022 History of Present illness Narrative* Rashmi Paige - 09/25/2021 11:15 AM EDT [facility] Date: 09/25/2021 Patient Name: Mary Jane Rios : 1945 Pt Cancelled Appt due to going to a . Rashmi Paige Date: 09/25/2021 documented in this [facility] Phone: [phone]) 826-704803-24-2022 History of Present illness Narrative* Velasquez JANETH Martel - 09/21/2021 9:00 AM EDT Images from the original note were not included. [facility] Out[facility] Therapy Daily Note Date: 09/21/2021 Patient Name: Mary Jane Rios : 1945 (75 y.o.) Referring Practitioner: Dr. Meyer Referral Date : 08/10/21 Diagnosis: Right RCR repair Treatment Diagnosis: Right RCR Onset Date: 07/28/21 PT Insurance Information: [facility] Total # of Visits Approved: 18 [...] 35 deg @ 90 deg - MET Intermediate Goals - Time Frame for intermediate goals : 18 visits terminal superintendent goal 1: PROM flexion 150 deg and abduction 140 deg terminal superintendent goal 2: PROM ER 50 deg and IR 60 deg (@ 90 deg ) intermediate goal 3: Functionally elevate right shoulder to reach behind head for self care/hair care intermediate goal 4: Functionally reach behind back to don coat or bra terminal superintendent goal 5: Strength right shoulder/UE to carry gallong of milk Post Treatment Pain: 10 Time In: 0901 Time Out : 0946 Timed Code Treatment Minutes: 45 Minutes Total Treatment Time: 45 Minutes Velasquez Martel PTA Date: 09/21/2021 documented [facility] this [facility] [place] Work Phone: 1(630) 573-461503-22-2022 History of Present illness Narrative* Nancy Nunez - 09/19/2021 9:15 AM EDT Images from the original note were not included. [facility] Out[facility] Therapy Daily Note Date: 09/19/2021 Patient Name: Mary Jane Rios : 1945 (75 y.o.) Referring Practitioner: Dr. Meyer Referral Date : 08/10/21 Diagnosis: Right RCR repair Treatment Diagnosis: Right RCR Onset Date: 07/28/21 PT Insurance Information: [facility] Total # of Visits Approved: 18 [...] 35 deg @ 90 deg - MET Instructional Design Consultant Goals - Time Frame for terminal superintendent goals : 18 visits intermediate goal 1: PROM flexion 150 deg and abduction 140 deg intermediate goal 2: PROM ER 50 deg and IR 60 deg (@ 90 deg ) terminal superintendent goal 3: Functionally elevate right shoulder to reach behind head for self care/hair care terminal superintendent goal 4: Functionally reach behind back to don coat or bra intermediate goal 5: Strength right shoulder/UE to carry gallong of milk Post Treatment Pain: 09/07 Time In: 0915 Time Out : 0958 Timed Code Treatment Minutes: 43 Minutes Total Treatment Time: 43 Minutes Nancy S 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 [facility] Out[facility] Therapy Daily Note Date: 09/15/2021 Patient Name: Mary Jane Rios : 1945 (75 y.o.) Referring Practitioner: Dr. Meyer Referral Date : 08/10/21 Diagnosis: Right RCR repair Treatment Diagnosis: Right RCR Onset Date: 07/28/21 PT Insurance Information: [facility] Total # of Visits Approved: 18 [...] 35 deg @ 90 deg - MET Intermediate Goals - Time Frame for terminal superintendent goals : 18 visits intermediate goal 1: PROM flexion 150 deg and abduction 140 deg intermediate goal 2: PROM ER 50 deg and IR 60 deg (@ 90 deg ) terminal superintendent goal 3: Functionally elevate right shoulder to reach behind head for self care/hair care terminal superintendent goal 4: Functionally reach behind back to don coat or bra terminal superintendent goal 5: Strength right shoulder/UE to carry gallong of milk Post Treatment Pain: 10/08 Time In: 0945 Time Out : 1030 Timed Code Treatment Minutes: 45 Minutes Total Treatment Time: 45 Minutes Velasquez Martel PTA Date: 09/15/2021 documented in this [facility] Phone: [phone]) 579-652803-16-2022 History of Present illness Narrative* Velasquez Martel PTA - 09/13/2021 9:45 AM EDT Images from the original note were not included. [facility] Out[facility] Physical Therapy Daily Note Date: 09/13/2021 Patient Name: Mary Jane Rios : 1945 (75 y.o.) Referring Practitioner: Dr. Meyer Referral Date : 08/10/21 Diagnosis: Right RCR repair Treatment Diagnosis: Right RCR Onset Date: 07/28/21 PT Insurance Information: [facility] Total # of Visits Approved: 18 [...] 35 deg @ 90 deg - MET Intermediate Goals - Time Frame for terminal superintendent goals : 18 visits terminal superintendent goal 1: PROM flexion 150 deg and abduction 140 deg intermediate goal 2: PROM ER 50 deg and IR 60 deg (@ 90 deg ) terminal superintendent goal 3: Functionally elevate right shoulder to reach behind head for self care/hair care intermediate goal 4: Functionally reach behind back to don coat or bra terminal superintendent goal 5: Strength right shoulder/UE to carry gallong of milk Post Treatment Pain: Time In: 0945 Time Out : 1030 Timed Code Treatment Minutes: 45 Minutes Total Treatment Time: 45 Minutes Velasquez Martel PTA Date: 09/13/2021 documented in this [facility] Work Phone: 1([phone]) 233-952703-10-2022 History of Present illness Narrative* Zo Chen PT - 09/07/2021 11:15 AM EST Images from the original note were not included. [facility] Out[facility] Therapy Daily Note Date: 09/07/2021 Patient Name: Mary Jane Rios : 1945 (75 y.o.) Referring Practitioner: Dr. Meyer Referral Date : 08/10/21 Diagnosis: Right RCR repair Treatment Diagnosis: Right RCR Onset Date: 07/28/21 PT Insurance Information: [facility] Total # of Visits Approved: 18 Per Physician Order Total # of Visits to Date: 7 No Show: 0 Canceled Appointment: 0 Plan of Care/Certification Expiration Date: 10/12/21 Pre-Treatment Pain: 2/10 Assessment Assessment: Patient to MD this morning; released from wearing sling. Completed ex per log with goodtolerance. PROM as previous session. Patient compliant with [...] 35 deg @ 90 deg - MET Intermediate Goals - Time Frame for intermediate goals : 18 visits terminal superintendent goal 1: PROM flexion 150 deg and abduction 140 deg intermediate goal 2: PROM ER 50 deg and IR 60 deg (@ 90 deg ) intermediate goal 3: Functionally elevate right shoulder to reach behind head for self care/hair care terminal superintendent goal 4: Functionally reach behind back to don coat or bra terminal superintendent goal 5: Strength right shoulder/UE to carry gallong of milk Post Treatment Pain: 08/10 Time In: 1105 Time Out : 1150 Timed Code Treatment Minutes: 45 Minutes Total Treatment Time: 45 Minutes ZO CHEN PT Date: 09/07/2021 documented in this encounterGal[facility] HospitalM[facility] Phone: [phone]) 935-801512-13-2021 History of Present illness Narrative* Rashmi Paige - 06/12/2021 10:30 AM EST [facility] Date: 06/12/2021 Patient Name: Mary Jane Rios : 1945 Pt Cancelled Appt due to Illness Rashmi Paige Date: 06/12/2021 documented [facility] this [facility] Phone: [phone]) 163-301711-05-2021 History of Present illness Narrative* Zo Chen, PT - 05/05/2021 2:30 PM EDT Images from the original note were not included. [facility] Out[facility] Therapy Daily Note Date: 05/05/2021 Patient Name: Mary Jane Rios : 1945 (75 y.o.) Referring Practitioner: Dr. Meyer Referral Date : 04/27/21 Diagnosis: Rightshoulder sprain Treatment Diagnosis: Right shoulder pain Onset Date: 04/27/21 PT Insurance Information: MCR Per Physician Order Total # of Visits to Date: 3 No Show: 0 Canceled Appointment: 0 Plan of Care/Certification Expiration Date: 06/23/21 Pre-Treatment Pain: 310 Assessment Assessment: Patient states shoulder is feeling [...] IR @ 90 deg to 60 deg Intermediate Goals - Time Frame for intermediate goals : 10 visits terminal superintendent goal 1: Subjective right shoulder pain < 3/10 with daily household tasks intermediate goal 2: Active functional mobility to reach behind head for hair care and behind back to don coat/dressing terminal superintendent goal 3: Strength right shoulder to lift/carry gallon of milk or fold clothes Post Treatment Pain: 09/07 Time In: 1435 Time Out : 1510 Timed Code Treatment Minutes: 35 Minutes Total Treatment Time: 35 Minutes ZO CHEN PT Date: 05/05/2021 documented in this [facility] Work Phone: [phone]) 117-465805-21-2021 History of Present illness Narrative* Ericka Cline RN - 11/18/2020 6:50 AM EDT Pt states she took 6 tablets of Imodium yesterday. She states she is incontinent of urine/stool & the imodium is not helping. documented in this encounterGalion [facility] HospitalMia[facility] Systems Phone: evaluation + Plan note No data available for this section [facility] Evaluation + Plan note Future Appointments Appointment Date:07/10/2022 02:00:00 PM Scheduled Provider:Donna Spencer CNP [place] Follow Up [facility] Evaluation + Plan note Future Appointments Appointment Date:07/26/2022 08:15:00 AM Scheduled Provider: Location:[facility] Appointment Type:Surgery FT [facility] Evaluation + Plan note Future Appointments Appointment Date:02/28/2023 12:00:00 PM Scheduled Provider:Vonda HERNANDEZ MD [place] Follow Up Future Scheduled Tests Laboratory* Vitamin B12 Level 08/28/22 [facility] Evaluation + Plan note Future Appointments Appointment Date:08/05/2023 12:30:00 PM Scheduled Provider: Location:[facility] Appointment Type:Surgery FT Future Scheduled Tests Laboratory* Vitamin B12 Level 08/28/22 [facility] Evaluation note* Diagnosis Nausea vomiting and diarrhea- Primary Nausea with vomiting documented in this encounter [employer] Phone: evaluation note* Diagnosis Diarrhea of presumed infectious origin Intractable vomiting with nausea, unspecified vomiting type documented in this encounter [employer] Phone: evaluation note* Diagnosis Diarrhea, unspecified type- Primary General weakness Other malaise and fatigue Urinary incontinence, unspecified type documented in this encounter [employer] Phone: evalvczjll note* Diagnosis Low hemoglobin Anemia, unspecified documented in this encounter [employer] Phone: evaluation note* Diagnosis Low hemoglobin Anemia, unspecified documented in this encounter [employer] Phone: evaluation note* Diagnosis Screening mammogram, encounter for documented in this encounter [employer] Phone: evaluation note* Diagnosis Right shoulder pain, unspecified chronicity documented in this encounter [employer] Phone: evaluation note* Diagnosis Acute non-recurrent pansinusitis documented in this encounter [employer] Phone: evaluation note* Diagnosis Diarrhea of presumed infectious origin documented in this encounter [facility]* Diagnosis History of arthroscopy of right shoulder documented in this encounter [employer] Phone: evaluation note* Diagnosis Essential hypertension Unspecified essential hypertension Palpitations Hypothyroidism, unspecified type Hyperlipidemia, unspecified hyperlipidemia type Vitamin D deficiency disease Unspecified vitamin D deficiency documented in this encounter [employer] Phone: evaluation note* Diagnosis Essential hypertension Unspecified essential hypertension Pure hypercholesterolemia Acquired hypothyroidism Unspecified hypothyroidism Palpitations Vitamin D deficiency disease Unspecified vitamin D deficiency documented in this encounter [employer] Phone: evaluation note* Diagnosis Essential hypertension Unspecified essential hypertension Pure hypercholesterolemia Acquired hypothyroidism Unspecified hypothyroidism Palpitations Vitamin D deficiency disease Unspecified vitamin D deficiency documented in this encounter [employer] Phone: evaluation note* Diagnosis Essential hypertension Unspecified essential hypertension Pure hypercholesterolemia Acquired hypothyroidism Unspecified hypothyroidism Palpitations Vitamin D deficiency disease Unspecified vitamin D deficiency documented in this encounter [employer] Phone: evaluation note* Diagnosis Acute cystitis with hematuria- Primary Acute cystitis Vaginal yeast infection Candidiasis of vulva and vagina documented in this encounter Native Phone: evaluation note* Diagnosis Women's annual routine gynecological examination Vaginal burning Other specified symptom associated with female genital organs documented in this encounter Native Phone: evaluation note* Diagnosis H/O repair of right rotator cuff Personal history of surgery to other organs documented in this encounter [facility] Phone: [email or web address] note* Diagnosis Visit for screening mammogram Other screening mammogram documented in this encounter [facility] Phone: [email or web address] noteNo assessment information available [facility] Work Phone: Evaluation noteNo InformationNoAl[facility] [email or web address] Other Evaluation note* Diagnosis Acute pharyngitis, unspecified etiology- Primary documented in this encounter [facility] Phone: [email or web address] note* Diagnosis Essential hypertension Unspecified essential hypertension Palpitations Hypothyroidism, unspecified type Hyperlipidemia, unspecified hyperlipidemia type Vitamin D deficiency disease Unspecified vitamin D deficiency documented in this encounter [facility] Phone: evaluation note* Diagnosis Non-recurrent acute suppurative otitis media of left ear without spontaneous rupture of tympanic membrane- Primary Acute nonintractable headache, unspecified headache type documented in this encounter [facility] Phone: [email or web address] note* Diagnosis Chronic low back pain with right-sided sciatica, unspecified back pain laterality- Primary documented in this encounter [facility] [place] Shahiya note* Diagnosis Renal cyst Unspecified congenital cystic kidney disease documented in this encounter [facility] [place] Shahiya note* Diagnosis Bruxism (teeth grinding)- Primary Other specified psychophysiological malfunction Acute suppurative otitis media of left ear without spontaneous rupture of tympanic membrane, recurrence not specified ROSETTE on CPAP Hearing loss, unspecified hearing loss type, unspecified laterality [facility] Diagnosis Sensorineural hearing loss, bilateral- Primary Hearing loss, unspecified hearing loss type, unspecified laterality [facility] Diagnosis COVID-19 virus infection- Primary documented in this encounter [facility] [place] Shahiya note* Diagnosis New onset atrial fibrillation (HCC)- Primary Atrial fibrillation Atrial fibrillation with RVR (HCC) Atrial fibrillation History of chronic kidney disease Personal history of other disorder of urinary system Symptoms of dehydration Fluid level behind tympanic membrane of both ears Acute pansinusitis, recurrence not specified Nausea vomiting and diarrhea Nausea with vomiting documented in this encounter [facility] Diagnosis Paroxysmal atrial fibrillation (HCC)- Primary Atrial fibrillation documented in this encounter [facility] note* Diagnosis Visit for screening mammogram Other screening mammogram [facility] Diagnosis COVID-19 virus infection- Primary documented in this encounter [facility] note* Diagnosis Sprain of right ankle, unspecified ligament, initial encounter- Primary documented in this encounter [facility] note* Diagnosis Grade 2 ankle sprain- Primary Pain in joint involving right ankle and foot Right foot pain Pain in soft tissues of limb Ankle instability, right documented in this encounter [facility]* Diagnosis 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 (male)(female) documented in this encounter [facility] note* Diagnosis Essential hypertension Unspecified essential hypertension Palpitations Hyperlipidemia, unspecified hyperlipidemia type Hypothyroidism, unspecified type Vitamin D deficiency disease Unspecified vitamin D deficiency documented in this encounter [facility] note* Diagnosis Essential hypertension Unspecified essential hypertension Palpitations Hyperlipidemia, unspecified hyperlipidemia type Hypothyroidism, unspecified type Vitamin D deficiency disease Unspecified vitamin D deficiency documented in this encounter [facility] note* Diagnosis Essential hypertension Unspecified essential hypertension Palpitations Hyperlipidemia, unspecified hyperlipidemia type Hypothyroidism, unspecified type Vitamin D deficiency disease Unspecified vitamin D deficiency documented in this encounter [facility] note* Diagnosis Grade 2 ankle sprain- Primary Ankle instability, right Right foot drop Other acquired deformity of ankle and foot documented in this encounter [facility]* Diagnosis Gross hematuria documented in this encounter [facility] note* Diagnosis Bacterial URI- Primary Dermatitis Contact dermatitis and other eczema, due to unspecified cause [facility] Diagnosis Cough, unspecified type- Primary Sore throat Acute pharyngitis Nasal congestion Other diseases of nasal cavity and sinuses Cough, unspecified type documented [facility] this [facility] Narrative - Reported* Type Description Date [...] History Epidural injections Hospitalization History see above [email or web address] Other History general Narrative - Reported* Type [...] cuff tear repair Hospitalization History see above [email or web address] Other Hospital Discharge instructions* Attachments The following attachments cannot be sent through Care Everywhere. * Diarrhea (Swedish) documented in this [employer] Phone: Hospital Discharge instructions* Attachments The following attachments cannot be sent through Care Everywhere. * Fatigue (Swedish) * Diarrhea (Swedish) * Stress Incontinence: Female (Swedish) * Urge Incontinence: Female (Swedish) documented in this [employer] Phone: Hospital Discharge instructions* Attachments The following attachments cannot be sent through Care Everywhere. * UTI (Urinary Tract Infection): Female (Swedish) * Vaginal Yeast Infection (Swedish) documented in this [employer] Phone: Hospital Discharge instructions No data available for this section [facility] Hospital Discharge instructions* Attachments The following attachments cannot be sent through Care Everywhere. * Otitis Media (Swedish) * Headache (Swedish) [facility] Attachments The following attachments cannot be sent through Care Everywhere. * Coronavirus Disease (COVID-19): General Info (Swedish) [facility] Attachments The following attachments cannot be sent through Care Everywhere. * Supraventricular Tachycardia (Swedish) [facility]* Attachments The following attachments cannot be sent through Care Everywhere. * Ankle Sprain (Swedish) * RICE: General Info (Swedish) [facility]* Attachments The following attachments cannot be sent through Care Everywhere. * Dermatitis (Swedish) documented in [facility] encounter[facility]HealthInst[facility]* Attachments The following attachments cannot be sent through Care Everywhere. * Cough (Swedish) documented in this encounterOhioHealthProgress note No data available for this section [facility] Summary Purpose Family History [...] FoundDocuments on File Type Date Recorded Patient Marriage Therapist Expl anation Advance Directives and Livin g Will Advance Directives and Livin g Will 03/01/2016 1:57 PM Power of Summer Clerk Power of Summer Clerk 03/01/2016 1:57 PM Latest Code Status on File Code Status Date Activated Date Inactivated Comments Full Code 02/21/2015 1:32 PM 02/21/2015 5:10 PM Full Code 02/21/2015 12:11 PM 02/21/2015 1:32 PM Full Code 01/31/2015 10:04 AM 01/31/2015 12:51 PM Full Code 01/31/2015 8:49 AM 01/31/2015 10:04 AM Full Code 04/30/2012 8:28 AM 04/30/2012 3:52 PM Documents on File Type Date Recorded Patient Marriage Therapist Expl anation Advance Directives and Livin g Will Advance Directives and Livin g Will 03/01/2016 1:57 PM Power of Summer Clerk Power of Summer Clerk 03/01/2016 1:57 PM Latest Code Status on File Code Status Date Activated Date Inactivated Comments Full Code 02/21/2015 1:32 PM 02/21/2015 5:10 PM Full Code 02/21/2015 12:11 PM 02/21/2015 1:32 PM Full Code 01/31/2015 10:04 AM 01/31/2015 12:51 PM Full Code 01/31/2015 8:49 AM 01/31/2015 10:04 AM Full Code 04/30/2012 8:28 AM 04/30/2012 3:52 PM Documents on File Type Date Recorded Patient Marriage Therapist Expl anation ACP-Advance Directive ACP-Advance Directive 03/01/2016 1:57 PM ACP-Power of Summer Clerk ACP-Power of Summer Clerk 03/01/2016 1:57 PM Documents on File Type Date Recorded Patient Marriage Therapist Expl anation ACP-Advance Directive ACP-Advance Directive 03/01/2016 1:57 PM ACP-Power of Summer Clerk ACP-Power of Summer Clerk 03/01/2016 1:57 PM Documents on File Type Date Recorded Patient Marriage Therapist Expl anation ACP-Advance Directive ACP-Power of Summer Clerk ACP-Advance Directive 03/01/2016 1:57 PM ACP-Power of Summer Clerk 03/01/2016 1:57 PM Documents on File Type Date Recorded Patient Marriage Therapist Expl anation ACP-Advance Directive ACP-Power of Summer Clerk ACP-Advance Directive 03/01/2016 1:57 PM ACP-Power of Summer Clerk 03/01/2016 1:57 PM Healthcare Agents on File [...] Documents on File Type Date Recorded Patient Marriage Therapist Expl anation ACP-Advance Directive 03/01/2016 1:57 PM ACP-Power of Summer Clerk 03/01/2016 1:57 PM Healthcare Agents on File Name Relationship Healthcare Agent Relationshi p Communication Adeel Athy Spouse Primary Decision Maker Advance Directive Response Recorded Date/ Time Advance Directives No April 22, 2017 3:57pm Advance Directive Response Recorded Date/ Time Advance Directives No April 22, 2017 2:57pm Documents on File Type Date Recorded Patient Marriage Therapist Expl anation ACP-Advance Directive 03/01/2016 1:57 PM ACP-Power of Summer Clerk 03/01/2016 1:57 PM Healthcare Agents on File [...] Documents on File Type Date Recorded Patient Marriage Therapist Expl anation ACP-Power of Summer Clerk 03/01/2016 1:57 PM ACP-Advance Directive 03/01/2016 1:57 [...] Documents on File Type Date Recorded Patient Marriage Therapist Expl anation ACP-Power of Summer Clerk 03/01/2016 1:57 PM ACP-Advance Directive 03/01/2016 1:57 PM Healthcare Agents on File Name Relationship Healthcare Agent Relationshi p Communication Adeel Athy Spouse Primary Decision Maker Healthcare Agents on File Name Relationship Healthcare Agent Relationshi p Communication Adeel Athy Spouse Primary Decision Maker Healthcare Agents on File Name Relationship Healthcare Agent Relationshi p Communication Adeel Athy Spouse Primary Decision Maker Date Activated Date Inactivated Comments 02/21/2015 1:32 PM 02/21/2015 5:10 PM Date Activated Date Inactivated Comments 02/21/2015 12:11 PM 02/21/2015 1:32 PM Date Activated Date Inactivated Comments 01/31/2015 10:04 AM 01/31/2015 12:51 PM Date Activated Date Inactivated Comments 01/31/2015 8:49 AM 01/31/2015 10:04 AM Date Activated Date Inactivated Comments 04/30/2012 8:28 AM 04/30/2012 3:52 PM Healthcare Agents on File Name Relationship Healthcare Agent Relationshi p Communication Adeel Athy Spouse Primary Decision Maker Date Activated Date Inactivated Comments 02/21/2015 1:32 PM 02/21/2015 5:10 PM Date Activated Date Inactivated Comments 02/21/2015 12:11 PM 02/21/2015 1:32 PM Date Activated Date Inactivated Comments 01/31/2015 10:04 AM 01/31/2015 12:51 PM Date Activated Date Inactivated Comments 01/31/2015 8:49 AM 01/31/2015 10:04 AM Date Activated Date Inactivated Comments 04/30/2012 8:28 AM 04/30/2012 3:52 PM Healthcare Agents on File Name Relationship Healthcare Agent Relationshi p Communication Adeel Athy Spouse Primary Decision Maker Healthcare Agents on File Name Relationship Healthcare Agent Relationshi p Communication Adeel Athy Spouse Primary Decision Maker [email or web address] Agents on File Name Relationship Healthcare Agent Relationshi p Communication Adeel Athy Spouse Primary Decision Maker [email or web address] Agents on File Name Relationship Healthcare Agent Relationshi p Communication Adeel Ronny Spouse Primary Decision Maker [email or web address] Agents on File Name Relationship Healthcare Agent Relationshi p Communication Adeel Athjuan c Spouse Primary Decision Maker [email or web address] Agents on File Name Relationship Healthcare Agent Relationshi p Communication Adeel Athjuan c Spouse Primary Decision Maker [email or web address] Agents on File Name Relationship Healthcare Agent Relationshi p Communication Adeel Athjuan c Spouse Primary Decision Maker [email or web address] Discharge Instructions * Instructions* Lexy Tapia MD - 05/30/2019 Antibiotic written as a SNAP (Safety net antibiotic prescription), start medication if fever develops You can take your Ashley or Ashley D or Claritin if desired, in addition to Flonase which may also help both your sinuses and ear effusions * Attachments The following attachments cannot be sent through Care Everywhere. * Sinusitis (Swedish) documented in this encounter* Attachments The following attachments cannot be sent through Care Everywhere. * Fatigue (Swedish) * Vertigo (Swedish) documented in this encounter Assessments Diagnosis Acute [...] Procedures EKG 12 Lead Reagan Pascal MD [address] [place] [address] Status Reason Specialty Diagnoses / Procedures Referre d By Contact Referred To Contact Closed Radiology Diagnoses Screening mammogram, encounter for Procedures ANA WU DIGITAL SCREEN BILATERAL Roni Dahl MD [address] [place] [address] [facility] [address] [place] [id number] Specialty Diagnoses / Procedures Referred By Contac t Referred To Contact Cardiology Diagnoses Essential hypertension Palpitations Hypothyroidism, unspecified type Hyperlipidemia, unspecified hyperlipidemia type Vitamin D deficiency disease Procedures EKG 12 Lead Reagan Pascal MD [address] [place] [address] Referral ID Status Reason Start Date Expiration Date Visits Re quested Visits Authorized [id number] Open 09/06/2021 09/06/2022 1 1 Status Reason Specialty Diagnoses / Procedures Referre d By Contact Referred To Contact Open Cardiology Diagnoses Essential hypertension Pure hypercholesterolemia Acquired hypothyroidism Palpitations Vitamin D deficiency disease Procedures EKG 12 Lead Reagan Pascal MD [address] [place] [address] Specialty Diagnoses / Procedures Referred By Contac t Referred To Contact Radiology Diagnoses Visit for screening mammogram Procedures ANA WU DIGITAL SCREEN BILATERAL Roni Dahl MD [address] [place] [address] Referral ID Status Reason Start Date Expiration Date Visits Re quested Visits Authorized [id number] Closed 01/25/2022 01/25/2023 1 1 Specialty Diagnoses / Procedures Referred By Contac t Referred To Contact Radiology Diagnoses Renal cyst Procedures US RENAL LIMITED Yanelis Guzman MD [address], [address] [place] [address] Referral ID Status Reason Start Date Expiration Date Visits Re quested Visits Authorized [id number] Open 03/13/2023 03/12/2024 1 1 Specialty Diagnoses / Procedures Referred By Contac t Referred To Contact Audiology Diagnoses Hearing loss, unspecified hearing loss type, unspecified laterality Grayson Hutchinson Jr., DO [address] [place] [address] Mary Sue, AuD [address] [place] [address] Referral ID Status Reason Start Date Expiration Date V isits Requested Visits Authorized [id number] Closed Specialty Services Required/Flower ent's Best Interest 05/02/2023 05/01/2024 1 1 Specialty Diagnoses / Procedures Referred By Contac t Referred To Contact Cardiology Diagnoses New onset atrial fibrillation (HCC) Atrial fibrillation with RVR (HCC) Procedures 10192 - VT Single/Multiple Event Recorder Lexy Tapia MD [address] [place] [address] Referral ID Status Reason Start Date Expiration Date Visits Re quested Visits Authorized [id number] Open 10/23/2023 10/22/2024 1 1 Referral ID Status Reason Start Date Expiration Date Visits Re quested Visits Authorized [id number] Closed 04/24/2024 04/24/2025 1 1 Specialty Diagnoses / Procedures Referred By Contac t Referred To Contact Cardiology Diagnoses Essential hypertension Palpitations Hyperlipidemia, unspecified hyperlipidemia type Hypothyroidism, unspecified type Vitamin D deficiency disease Procedures EKG 12 Lead Reagan Pascal MD [address] [place] [address] Referral ID Status Reason Start Date Expiration Date V isits Requested Visits Authorized [id number] Pending Review 09/01/2024 09/01/2025 1 1 Chief Complaint and Reason for [...] / R76. 0 / Z79.899 Osteoporosis, meds Chief Complaint Admit Date M15.0, M35.9, R76.0, Z79.899 August 112024 2:17pm Chief Complaint Admit Date M15.0, M35.9, R76.0, Z79.899 August 112024 2:17pm R35.0 September 10, 2024 9:1 1am Additional Source Comments INFORMATION SOURCE (unrecogn ized section and content) DATE CREATED AUTHOR 12/24/2017 [facility] DATE CREATED AUTHOR AUTHOR'S ORGANIZ ATION 03/27/2018 [facility] DATE CREATED AUTHOR AUTHOR'S ORGANIZ ATION 07/13/2021 [facility] DATE CREATED AUTHOR AUTHOR'S ORGANIZ ATION 04/13/2023 [facility] DATE CREATED AUTHOR AUTHOR'S ORGANIZ ATION 05/06/2023 [facility] DATE CREATED AUTHOR AUTHOR'S ORGANIZ ATION 01/17/2024 [facility] DATE CREATED AUTHOR AUTHOR'S ORGANIZ ATION 08/31/2024 Antoin[facility] DATE CREATED AUTHOR AUTHOR'S ORGANIZ ATION 09/20/2024 [facility] DATE CREATED AUTHOR AUTHOR'S ORGANIZ ATION 11/28/2024 [facility] DATE CREATED AUTHOR AUTHOR'S ORGANIZ ATION 12/23/2024 [facility] DATE CREATED AUTHOR AUTHOR'S ORGANIZ ATION 02/10/2025 [facility] DATE CREATED AUTHOR AUTHOR'S ORGANIZ ATION 02/17/2025 [facility] Reason for Visit (unrecogniz ed section and [...] DIGITAL SCREEN BILAT Roni Dahl MD [address] [place] [address] [facility] [address] [place] [address] Reason Comments Illness Pt has not been [...] DIGITAL SCREEN BILATERAL Roni Dahl MD [address] [place] [address] [facility] [address] [place] [address] Status Reason Specialty Diagnoses / Procedures Referred By Contact Referred To Contact Open Physical Therapy Diagnoses Shoulder pain, right Procedures physical therapy Christian Meyer, DO [address] [place] [address] Zo Chen, PT [address] [place] [address] Specialty Diagnoses / Procedures Referred By Juan Manuel garibay Referred To Contact Physical Therapy Diagnoses Shoulder pain, right Procedures physical therapy Christian Meyer, DO [address] [place] [address] Glynn Zo, PT [address] [place] [address] Referral ID Status Reason Start Date Expiration Date Visits Re quested Visits Authorized [id number] Open 04/28/2021 04/28/2022 99 99 Reason Comments Urinary Tract Infection Pt states that s he has been having painful urination x 10 days. Specialty Diagnoses / Procedures Referred By Juan Manuel garibay Referred To Contact Radiology Diagnoses Visit for screening mammogram Procedures [facility] WU DIGITAL SCREEN BILATERAL Roni Dahl MD [address] [place] [address] Referral ID Status Reason Start Date Expiration Date Visits Re quested Visits Authorized [id number] Closed 01/25/2022 01/25/2023 1 1 Reason Comments [...] working in the garden. Patient seen at [facility] this past Saturday and given cortisone/ muscle relaxer. Patient unable to relieve pain. Specialty Diagnoses / Procedures Referred By Juan Manuel garibay Referred To Contact Radiology Diagnoses Renal cyst Procedures US RENAL LIMITED Yanelis Guzman MD [address], [address] [place] [address] Referral ID Status Reason Start Date Expiration Date Visits Re quested Visits Authorized [id number] Open 03/13/2023 03/12/2024 1 1 Reason Comments Otitis Media INFORMATION LEAD, referral from [facility] for [place] media. Patient states she has had left ear infections for most of her life. She was treated for ear infection with Augmentin in October. 3 weeks ago, woke up with extreme pain and was treated again for b/l ear infection. She returned to [facility] and was told that her ear was still infected. Last hearing test several years ago in [place]. 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 Saw Gann in 2019. Specialty Diagnoses / Procedures Referred By Juan Manuel garibay Referred To Contact Otolaryngology Diagnoses Acute suppurative otitis media of left ear without spontaneous rupture of tympanic membrane, recurrence not specified Andre Rowe, [facility] [address] [place] [address] Grayson Hutchinson Jr., DO [address] [place] [address] Referral ID Status Reason Start Date Expiration Date V isits Requested Visits Authorized [id number] Closed Specialty Services Required/Flower ent's Best Interest 04/24/2023 04/23/2024 1 1 Specialty Diagnoses / Procedures Referred By Juan Manuel garibay Referred To Contact Audiology Diagnoses Hearing loss, unspecified hearing loss type, unspecified laterality Grayson Hutchinson Jr., DO [address] [place] [address] Mary Sue, AuD [address] [place] [address] Referral ID Status Reason Start Date Expiration Date V isits Requested Visits Authorized [id number] Closed Specialty Services Required/Flower ent's Best Interest [...] SOBRecent dx AFib within last 3 weeks Referral ID Status Reason Start Date Expiration Date Visits Re quested Visits Authorized [id number] Closed 04/24/2024 04/24/2025 1 1 Reason Comments Illness Has been nauseated f or past couple days with left ear ache and headache. Stated she has a sore throat with fever. Has taken 3 doses of Augmentin that she had left over Reason Comments Ankle Pain Pt states that she h as had right ankle pain that started yesterday. Fall in May when she hurt it and it has intermittently hurt ever since. Reason Comments Ankle Pain Rgt Ankle pain Reason Comments Follow-up RT ankle pain Reason Comments Cough 1 week. Productive c ough, sore throat, bilateral ear fullness, headache, eye drainage, runny nose. Reason Comments Sore Throat 3 weeks. Sore throat , fatigue, bilateral ear itching, dizziness, post nasal drip, productive cough. Pt felt a little better with Augmentin during last visit then symptoms came back. Ordered Prescriptions (unrec ognized section and content) [...] Start Date End Da te nystatin (MYCOSTATIN) 103447 UNIT/ML suspension Take 5 mLs by mouth 4 times daily Swish and swallow. 200 mL 0 11/25/2022 amoxicillin-clavulanate (AUGMENTIN) 875-125 MG per tablet Take 1 tablet by mouth 2 times daily for 10 days 20 tablet 0 11/25/2022 12/05/2022 nystatin (MYCOSTATIN) 766025 UNIT/ML suspension Take 5 mLs by mouth [...] End Da te clotrimazole (MYCELEX) 10 MG anastasia Take 1 tablet by mouth 4 times [...] Nasal route daily 3 each 1 10/23/2023 Prescription Sig Dispensed Refills Start Date End Da te traMADol (ULTRAM) 50 MG tabletIndications:Sprain of right ankle, unspecified ligament, initial encounter Take 1 tablet by mouth every 6 hours as needed for Pain for up to 3 days. Intended supply: 3 days. Take lowest dose possible to manage pain Max Daily Amount: 200 mg 12 tablet 07/10/2024 07/13/2024 Scheduled Active and Recently Administ ered Medications [...] on the MAR. 1448 (Furnished to P atient - Provider: Emily Choi RN) Scheduled Medication [...] ONCE, 1 dose, On Shannan 11/14/23 at 1914 1914 (Given - Provid er: Maria R Love [...] Care Teams (unrecognized sec tion and content) Train Announcer Relationship Specialty Start Date End Date Roni Dahl MD [address] [place] [address]184 PCP - General 07/15/12 Train Announcer Relationship Specialty Start Date End Date Roni Dahl MD [address] [place] [address] 31354 PCP - General 07/15/12 Train Announcer Relationship Specialty Start Date End Date Roni Dahl MD [address] [place] [address]65 PCP - General 07/15/12 Train Announcer Relationship Specialty Start Date End Date Roni Dahl MD [address] [place] [address] PCP - General 07/15/12 Train Announcer Relationship Specialty Start Date End Date Roni Dahl MD [address] [place] [address] 34590 PCP - General 07/15/12 Train Announcer Relationship Specialty Start Date End Date Roni Dahl MD [address] [place] [address] 88879 PCP - General 07/15/12 Train Announcer Relationship Specialty Start Date End Date Roni Dahl MD [address] [place] [address] 38722 PCP - General 07/15/12 Train Announcer Relationship Specialty Start Date End Date Roni Dahl MD [address] [place] [address] PCP - General 07/15/12 Train Announcer Relationship Specialty Start Date End Date Roni Dahl MD [address] [place] [address] PCP - General 07/15/12 Train Announcer Relationship Specialty Start Date End Date Roni Dahl MD [address] [place] [address] PCP - General 07/15/12 Train Announcer Relationship Specialty Start Date End Date Roni Dahl MD [address] [place] [address] PCP - General 07/15/12 Train Announcer Relationship Specialty Start Date End Date Roni Dahl MD [address] [place] [address] 99767 PCP - General 07/15/12 Team Status: Inactive [...] Active Yanelis Garcia MD Attending Provider Active Train Announcer Relationship Specialty Start Date End Date Roni Dahl MD [address] [place], [place] [phone] PCP - General 07/15/12 Train Announcer Relationship Specialty Start Date End Date Roni Dahl MD [address] [place], [place] [phone] PCP - General 07/15/12 Train Announcer Relationship Specialty Start Date End Date Roni Dahl MD [address] [place], [place] [phone] PCP - General 07/15/12 Train Announcer Relationship Specialty Start Date End Date Roni Dahl MD [address] [place], [place] [phone] PCP - General 07/15/12 Train Announcer Relationship Specialty Start Date End Date Roni Dahl MD [address] [place] [address] 630[address] PCP - General 07/15/12 Team Status: Inactive Member Role Status Dates Roni Dahl MD Primary Care Provider Active Jesus Vasquez APRN Emergency Provider Active Train Announcer Relationship Specialty Start Date End Date Roni Dahl MD [address] [place] [address] 35562 PCP - General 07/15/12 Team Status: Inactive Member Role Status Dates Roni Dahl MD Primary Care Provider Active Mukul Wilson MD Attending Provider Active Train Announcer Relationship Specialty Start Date End Date Roni Dahl MD [address] [place] [id number] PCP - General 07/15/12 Train Announcer Relationship Specialty Start Date End Date Roni Dahl MD [address] [place] [phone] PCP - [facility] 04/24/23 Train Announcer Relationship Specialty Start Date End Date Roni Dahl MD [address] [phone] PCP - [facility] 04/24/23 Team Status: Inactive Member Role Status Dates Roni Dahl MD Primary Care Provider Active Obie Hylton MD Attending Provider Active Train Announcer Relationship Specialty Start Date End Date Roni Dahl MD [address] [phone] PCP [facility] 07/15/12 Team Status: Inactive Member Role Status Dates Roni Dahl MD Primary Care Provider Active Start: September 19, 2023 End: September 19, 2023 DENISHA Cedeño Attending Provider Active Start: September 19, 2023 End: September 19, 2023 Train Announcer Relationship Specialty Start Date End Date Roni Dahl MD [address] [id number] PCP - General 07/15/12 Train Announcer Relationship Specialty Start Date End Date Roni Dahl MD [address] [place] [address] PCP - General 07/15/12 Team Status: Inactive [...] February 06, 2024 End: February 06, 2024 Train Announcer Relationship Specialty Start Date End Date Roni Dahl MD [address] [place], [place] [phone] PCP - General 07/15/12 Train Announcer Relationship Specialty Start Date End Date Roni Dahl MD [address] [place], [place] [phone] PCP - General 07/15/12 Team Status: Inactive Member Role Status Dates Roni Dahl MD Primary Care Provider Active Start: August 11, 2024 End: August 11, 2024 Obie Hylton MD Attending Provider Active St art: August 11, 2024 End: August 11, 2024 Train Announcer Relationship Specialty Start Date End Date Roni Dahl MD [address] [place] [address] PCP - General Family Medicine 08/17/24 Train Announcer Relationship Specialty Start Date End Date Roni Dahl MD [address] [place] [address] PCP - General Family Medicine 08/17/24 Train Announcer Relationship Specialty Start Date End Date Roni Dahl MD [address] [place] [address] PCP - General 07/15/12 Train Announcer Relationship Specialty Start Date End Date Roni Dahl MD [address] [place] [id number] PCP - General 07/15/12 Train Announcer Relationship Specialty Start Date End Date Roni Dahl MD [address] [id number] PCP - General 07/15/12 Team Status: Inactive Member Role Status Dates Roni Dahl MD Primary Care Provider Active Start: September 10, 2024 End: September 10, 2024 Nuvia Sanchez NP-C Attending Provider Active Start: September 10, 2024 End: September 10, 2024 Train Announcer Relationship Specialty Start Date End Date Roni Dahl MD [address] [id number] PCP - General Family Medicine 08/17/24 Train Announcer Relationship Specialty Start Date End Date Roni Dahl MD [address] [id number] PCP - General Family Medicine 08/17/24 Train Announcer Relationship Specialty Start Date End Date Roni Dahl MD [address] [place] [address] PCP - General 07/15/12 Train Announcer Relationship Specialty Start Date End Date Roni Dahl MD [address] [phone] PCP - General Family Medicine 04/24/23 Train Announcer Relationship Specialty Start Date End Date Roni Dahl MD [address] [place] [address] PCP - General Family Medicine 04/24/23 Goals (unrecognized section and content) Goals may [...] BE BASED ON THE PRIMARY CLINICAL RECORDS. [facility]. provides no warranty or guarantee of the accuracy or completeness of information in this document.
--- NOTE | 2025-02-18 09:22 | PM.CN ---
Consult Note: HPI Data of Consult Patient: known to practice within the last 3 years Consult date: 02/18/25 Requesting Physician: Gabrielle Boswell NP Primary Care Provider: Rocio Dahl MD Consult Narrative Reason for consult: right leg pain Narrative: Mary Jane eckert pleasant 79 year old female presents for evaluation of chronic low back pain and right leg pain present >12 months unresponsive to > 6 weeks of PT/HEP, heat, ice, tylenol, cannot take NSAIDs on eliquis. pt noting increased right leg pain, numbness, tingling, and weakness. pain today 2/10 burning stabbing increasing to 8/10 with standing, walking, lifting. utilizing tylenol PRN, tramadol prn. previously failed gabapentin and lyrica. notes mild relief from recent right sciatic nerve block less than 50% improvement. cc:: CC: Gabrielle Boswell NP [facility] Medical History Irregular heartbeat ?I49.9 - Cardiac arrhythmia, unspecified (ICD-10) Sleep apnea ?G47.30 - Sleep apnea, unspecified (ICD-10) Hiatal hernia ?K44.9 - Diaphragmatic hernia without obstruction or gangrene (ICD-10) Acid reflux ?K21.9 - Gastro-esophageal reflux disease without esophagitis (ICD-10) Osteoarthritis ?M19.90 - Unspecified osteoarthritis, unspecified site (ICD-10) TMJ (dislocation of temporomandibular joint) ?S03.00XA - Dislocation of jaw, unspecified side, initial encounter (ICD-10) Hypothyroid ?E03.9 - Hypothyroidism, unspecified (ICD-10) Surgical History History of bladder surgery ?Z98.890 - Other specified postprocedural states (ICD-10) History of knee replacement ?Z96.659 - Presence of unspecified artificial knee joint (ICD-10) History of hip replacement ?Z96.649 - Presence of unspecified artificial hip joint (ICD-10) History of cholecystectomy ?Z90.49 - Acquired absence of other specified parts of digestive tract (ICD-10) History of ankle surgery ?Z98.890 - Other specified postprocedural states (ICD-10) H/O: hysterectomy ?Z90.710 - Acquired absence of both cervix and uterus (ICD-10) H/O hernia repair ?Z98.890 - Other specified postprocedural states (ICD-10) ?Z87.19 - Personal history of other diseases of the digestive system (ICD-10) Meds Home Medications and Allergies Home Medications ?Medication ?Instructions ?Recorded ?Confirmed ?Type aspirin 81 mg capsule 81 mg PO DAILY 08/26/23 02/08/25 History calcium-magnesium 300 mg-300 mg 1 tab PO DAILY 08/26/23 02/08/25 History tablet cholecalciferol (vitamin D3) 50 50 mcg PO BID 08/26/23 02/08/25 History mcg (2,000 unit) capsule citalopram 20 mg tablet 20 mg PO DAILY 08/26/23 02/08/25 History cyanocobalamin (vitamin B-12) 1,000 mcg PO DAILY 08/26/23 02/08/25 History 1,000 mcg capsule docusate sodium 100 mg capsule 100 mg PO DAILY 08/26/23 02/08/25 History estradiol 0.01% (0.1 mg/gram) 1 g vaginal QWEEK 08/26/23 02/08/25 History vaginal cream fexofenadine 180 mg tablet 180 mg PO DAILY 08/26/23 08/24/24 History fluticasone propionate 50 1 spray intranasal DAILY PRN 08/26/23 02/08/25 History mcg/actuation nasal allergy symptoms spray,suspension levothyroxine 50 mcg capsule 50 mcg PO DAILY 08/26/23 02/08/25 History pilocarpine HCl 5 mg tablet 5 mg PO TID 08/26/23 02/08/25 History pravastatin 40 mg tablet 40 mg PO DAILY 08/26/23 02/08/25 History psyllium husk 0.4 gram capsule 0.4 g PO DAILY 08/26/23 02/08/25 History (Metamucil) topiramate 50 mg tablet 50 mg PO DAILY 08/26/23 02/08/25 History apixaban 5 mg tablet (Eliquis) 5 mg PO BID 02/03/24 02/08/25 History diltiazem HCl 120 mg 120 mg PO Q24H 03/25/24 02/08/25 History capsule,extended release 24 hr tramadol 50 mg tablet 50 mg PO BID PRN pain #14 tabs 08/12/24 02/08/25 Rx Allergies Allergy/AdvReac Type Severity Reaction Status Date / Time latex Allergy Irritable Verified 02/08/25 09:01 morphine Allergy Vomiting Verified 02/08/25 09:01 Sulfa (Sulfonamide Allergy Rash Verified 02/08/25 09:01 Antibiotics) Exam Constitutional Documenting provider has reviewed patient's vital signs: yes Common normals: no apparent distress, oriented x3, healthy appearing, alert and well nourished General appearance: cooperative HENMT Common normals: normocephalic, hearing grossly normal bilaterally and moist oral mucous membranes Head and scalp: normocephalic Eye Common normals: PERRL Pupil: PERRL Neck & C-Spine Common normals: full ROM General: normal visual inspection Chest Common normals: inspection of chest normal Respiratory Common normals: normal respiratory effort, no retractions and no use of accessory muscles Back & Pelvis Lumbar spine/lower back: normal to inspection, ROM limited, pain with ROM and straight leg raise positive right Other: strength 5/5 in BLE increased pain right L5/S1 decreased sensation to right L5/S1 Extremity Common normals: normal to inspection and full ROM Neuro Common normals: oriented x3 Sensorium/orientation: alert Motor exam: strength 5/5 throughout and no movement abnormalities noted Psych Common normals: mental status grossly normal, thought process normal, cooperative, affect normal, speech normal and activity/motor behavior normal Speech: normal speech Thought process: normal thought process Results Additional Findings Additional findings: If on a controlled substance or opioids, I have checked an [place] report on this patient and there are no aberrancies noted in the prescribing history.??If on a controlled substance or opioid a drug screen was completed and reviewed within the last year, and if there has not been a drug screen completed we ordered one today to monitor higher risk, state monitored pain medication use. As part of providing excellent, safe, comprehensive care, the following was completed at our patient's visit: 1. A medication reconciliation and review to ensure accurate knowledge of current/active medications, including asking our patients to inform us about any [id number]-[id number] medications or herbal remedies/nutritional supplements/alternative remedies. 2. A review to specifically ensure our patients have had annual screening for screening for depression, screening for tobacco use, and screening for unhealthy alcohol use. For concerning screenings had a discussion with the patient, provided patient education, and recommended follow-up with primary care provider when appropriate. If patient noted with a risk of falling, they received education on strength, gait, and balance training to prevent future risk of falling. Portions of this note may have been carried over from the previous visit and updated as appropriate. Please note this office utilizes paper charting in addition to the electronic medical record. A list of current medications, vitals, and PMH is available there as the clinical staff outside of myself do not have access to [employer] charting during the clinic day operations. As part of providing quality comprehensive care the current medications, vitals, and PMH were reviewed in the paper chart. Assessment and Plan Assessment and Plan (1) Right sided sciatica: Assessment and Plan: The patient has had over 3 months of moderate to severe low back and right leg pain with functional impairment and inadequate response to conservative care including NSAIDS (unless there are contraindication such as concurrent blood thinners), multiple oral or topical pain medications, and home exercise program/physical therapy.? Patient has completed >6 weeks of guided home exercise program and/or formal physical therapy program without relief of their symptoms.? (2) Lumbar radiculopathy: (3) Lumbar stenosis with neurogenic claudication: Plan declining scs trial pt really interested in repeating right sciatic nerve block as prior injections were helpful but her most recent injection has not been beneficial. risks vs benefits reviewed, will trial right sciatic nerve block with steroid rotation to kenalog continue current medications continue HEP as tolerated f/u after injection with Dr Harris
== END 2025-02-18 09:01 | disposition home or self-care (01) ==
LOC: PM 09:01
PROVIDERS: PCP Family Medicine; Visit Provider Nurse Practitioner
DX: M54.31 Sciatica, right side (principal); M54.16 Radiculopathy, lumbar region; M48.062 Spinal stenosis, lumbar region with neurogenic claudication
CPT/HCPCS: G0463

== ENCOUNTER 2025-02-22 10:57 | Day surgery (SDC) | payer MEDICARE, SELFPAY ==
--- OUTSIDE RECORDS SUMMARY | 2010-10-10 06:32 | XMS_ITS | Encounter Summary ---
Author Organization [facility] Address [address], [address] [place] [address] Care Team Providers Care College Service Officer Name Role Phone Unavailable Primary Care Provider Unavailabl e Encounter Details Date Type Department Care Team (Late st Contact Info) Description 10/10/2010 6:32 AM EDT Hospital Encounter [facility] Department [address] [place] [address] Reagan Pascal MD [address] [place] [address] Social History Tobacco Use Types Packs/Day Years Used Date Smoking Tobacco: Never Passive Smoke Exposure: Never Smokeless Tobacco: Never Alcohol Use Standard Drinks/Week Comments Never 0 (1 standard drink = 0.6 oz pur e alcohol) occasional C Utilities Answer Date Recorded In the past 12 months has [employer], gas, oil, or water [employer] threatened to shut off services in your home? No 08/20/2024 AUDIT-C Answer Date Recorded Q1: How often do you have a drink containing alcohol? Never 08/20/2024 Q2: How many drinks containi ng alcohol do you have on a typical day when you are drinking? Patient does not drink Q3: How often do you have si x or more drinks on one occasion? Never 08/20/2024 Overall Financial Resource Strain (CARDIA) Answe r Date Recorded How hard is it for you to pa y for the very basics like food, housing, medical care, and heating? Not hard at all 02/11/2024 PHQ-2 Answer Date Recorded PHQ-9 Total Score 3 02/17/2025 Exercise Vital Sign Answer Date Recorde d On average, how many days pe r week do you engage in moderate to strenuous exercise (like a brisk walk)? 0 days 08/20/2024 On average, how many minutes do you engage in exercise at this level? 0 min 08/20/2024 Hunger Vital Sign Answer Date Recorded Within the past 12 months, y ou worried that your food would run out before you got the money to buy more. Never true 08/20/19 Within the past 12 months, t he food you bought just didn't last and you didn't have money to get more. Never true 08/20/2024 PRAPARE - Transportation Answer Date Re corded In the past 12 months, has l ack of transportation kept you from medical appointments or from getting medications? No 08/02 In the past 12 months, has l ack of transportation kept you from meetings, work, or from getting things needed for daily living? No 08/20/2024 Housing Stability Vital Sign Answer Matt e Recorded Unable to Pay for Housing in the Last Year Not o n file 09/03/2022 Number of Places Lived in the Last Year Not on f ile 09/03/2022 In the last 12 months, was t here a time when you did not have a steady place to sleep or slept in a senior living (including now)? No 09/03/2022 Housing Stability Vital Sign Answer Matt e Recorded In the last 12 months, was t here a time when you were not able to pay the mortgage or rent on time? No 08/20/2024 In the past 12 months, how m any times have you moved where you were living? 20 08/20/2024 At any time in the past 12 m [facility], were you homeless or living in a senior living (including now)? No 08/20/2024 AUDIT-C Answer Date Recorded Q1: How often do you have a drink containing alcohol? Never 02/17/2025 Q2: How many drinks containi ng alcohol do you have on a typical day when you are drinking? Patient does not drink Q3: How often do you have si x or more drinks on one occasion? Never 02/17/2025 Exercise Vital Sign Answer Date Recorde d On average, how many days pe r week do you engage in moderate to strenuous exercise (like a brisk walk)? 3 days 02/17/2025 On average, how many minutes do you engage in exercise at this level? 20 min 02/17/2025 Food Insecurity Answer Date Recorded Within the past 12 months, y ou worried that your food would run out before you got the money to buy more. 1 08/20/2024 Within the past 12 months, t he food you bought just didn't last and you didn't have money to get more. 1 08/20/2024 Interpersonal Safety Domain Source: IP Abuse Scr eening Answer Date Recorded Physical abuse Denies 06/24/2024 Verbal abuse Denies 06/24/2024 Emotional abuse Denies 06/24/2024 Financial abuse Denies 06/24/2024 Sexual abuse Denies 06/24/2024 Comments No Sex and Gender Information Value Date Recorded Sex Assigned at Female 01/27/2021 12:20 PM EDT Legal Sex Female 9:20 AM EST Gender Identity Female 01/27/2021 12:20 PM EDT Sexual Orientation Straight 04/13/2020 12 :54 PM EDT COVID-19 Exposure Response Date Recorded In the last 10 days, have yo u been in contact with someone who was confirmed or suspected to have Coronavirus/COVID-19? No / Unsure 07/12/2022 9:23 AM EST documented as of this encounter Functional Status * Question Answer Date of Assessment Author Q1: How often do you have a drink containing alcohol? Never 02/17/2025 9:34 AM Chel Love LPN Q2: How many drinks containing alcohol do you have on a typical day when you are drinking? Patient does not drink 02/17/2025 9:34 AM Belen Love LPN Q3: How often do you have six or more drinks on one occasion? Never 02/17/2025 9:34 AM Chel Love LPN * AUDIT-C Score Answer Date of Assessment Author 0 02/17/2025 9:34 AM EDT Aurelia Carranza LPN documented as of this encounter Plan of Treatment Upcoming Encounters Date Type Department Care Team (Late st Contact Info) Description 03/17/2025 9:00 AM EDT Office Visit [facility] Mop Handle Assembler [address] [place] [phone] Reagan Pascal MD [address] [place] [address] 08/23/2025 9:00 AM EST Office Visit [facility] [place] [address] [place] [address] Rocio Dahl MD [address] [place] [address] Return in about 6 months (around 08/20/2025) for HTN, Hyperlipidemia, gerd, dysthymia , Hypothyroid, ckd. 12/23/2025 8:30 AM EDT Office Visit [facility] UROLOGY Part of [address] [place] [id number] Yasmeen Thakkar, PLANT WIRE CHIEF - OPERATION SHIFT SUPERVISOR [address] [place] [address] [address] [place] [phone] 1Y f/u documented as of this encounter Goals Goal Patient Goal Type Associated Problems Recent Progress Patient-Stated? Author get rid of UTI Lifestyle Marylin August documented as of this encounter Visit Diagnoses Not on filedocumented in this encounter Additional Health Concerns Infection Onset Date Last Indicated Resolved Time COVID-19 (Rule Out) 03/31/2020 03/31/2020 04/03/20 20 6:38 AM EDT COVID-19 (Rule Out) 06/29/2020 06/29/2020 06/30/20 20 12:24 PM EST COVID-19 06/29/2020 06/29/2020 07/13/2020 9:28 PM EST C-diff Rule Out 11/27/2020 11/27/2020 11/28/2020 1 :05 PM EDT COVID-19 (Rule Out) 11/27/2020 11/27/2020 11/28/19 21 1:08 PM EDT COVID-19 (Rule Out) 06/12/2021 06/12/2021 06/13/20 21 10:47 AM EST COVID-19 (Rule Out) 11/17/2022 11/17/2022 11/18/19 23 11:56 AM EDT COVID-19 (Rule Out) 07/01/2023 07/01/2023 07/01/19 24 4:10 PM EST COVID-19 07/01/2023 07/01/2023 07/15/2023 9:27 PM EST COVID-19 (Rule Out) 06/24/2024 06/24/2024 06/24/20 24 5:56 PM EST COVID-19 06/24/2024 06/24/2024 07/08/2024 9:27 PM EST documented as of this encounter
--- OUTSIDE RECORDS SUMMARY | 2013-03-05 23:53 | XMS_ITS | Encounter Summary ---
Author Organization [facility] Address [address], [address] [place] [address] Care Team Providers Care Independent Driver Name Role Phone Rocio Dahl MD Primary Care Provider [phone] Encounter Details Date Type Department Care Team (Late st Contact Info) Description 03/05/2013 11:53 PM EDT Hospital Encounter [facility] RAD[facility]OLOGY [address] [place] [id number] Rocio Dahl MD [address] [place] [address] Social History Tobacco Use Types Packs/Day Years Used Date Smoking Tobacco: Never Passive Smoke Exposure: Never Smokeless Tobacco: Never Alcohol Use Standard Drinks/Week Comments Never 0 (1 standard drink = 0.6 oz pur e alcohol) occasional [facility] Utilities Answer Date Recorded In the past 12 months has [employer], gas, oil, or water [employer] threatened to shut off services in your [...] place to sleep or slept in a skilled nursing (including now)? No 09/03/2022 Housing Stability Vital Sign Answer Matt e Recorded In the last 12 months, was t here a time when you were not able to pay the mortgage or rent on time? No 08/20/2024 In the past 12 months, how m any times have you moved where you were living? 20 08/20/2024 At any time in the past 12 m [facility], were you homeless or living in a skilled nursing (including now)? No 08/20/2024 AUDIT-C Answer Date [...] on one occasion? Never 02/17/2025 9:34 AM Chle Love LPN * AUDIT-C Score Answer Date of Assessment Author 0 02/17/2025 9:34 AM EDT Aurelia Carranza LPN documented as of this encounter Plan of Treatment Upcoming Encounters Date Type Department Care Team (Late st Contact Info) Description 03/17/2025 9:00 AM EDT Office Visit [facility] Flight Communications Operator [address] [place] [phone] Reagan Pascal MD [address] [place] [address] 08/23/2025 9:00 AM EST Office Visit [facility] [place] [address] [place] [address] Rocio Dahl MD [address] [place] [address] Return in about 6 months (around 08/20/2025) for HTN, Hyperlipidemia, gerd, dysthymia , Hypothyroid, ckd. 12/23/2025 8:30 AM EDT Office Visit [facility] UROLOGY Part of [address] [place] [address] Yasmeen Thakkar, AIRCRAFT ENGINE TECHNICIAN - [employer] [address] [place] [address] [address] [place] [phone] 1Y f/u documented as of this encounter Goals Goal Patient Goal Type Associated Problems Recent Progress Patient-Stated? Author get rid of UTI Lifestyle Marylin August documented as of this encounter Procedures Procedure Name Priority Date/Time Associated Diagnosis Comments ANA DIGITAL SCREEN W OR WO CAD BILATERAL Routine 03/05/2013 9:18 AM EDT documented in this encounter Results * ANA Digital Screen Bilateral (03/05/2013 9:18 AM EDT) Anatomical Region Laterality Modality Breast Bilateral Mammography 03/05/2013 9:18 AM EDT Narrative 03/05/2013 5:50 PM EDT FINAL Procedure: WMM Mar 05 2013 9:18AM [id number] MAMMOGRAM DIGITAL SCREEN BILAT Reason for Exam: Screening FULL RESULT: HISTORY: Screening. TECHNIQUE: Bilateral digital mammogram with CAD. FINDINGS: Two views of each breast show scattered fibroglandular elements, bilaterally symmetric, with no dominant mass or suspicious microcalcification to suggest malignancy. No change from 03/04/2012, 02/23/2011. IMPRESSION: BI-RADS 1 - Negative, no evidence of malignancy. Normal interval followup in 12 months. OVERALL ASSESSMENT- NEGATIVE A letter of notification will be sent to the patient regarding the results. Transcribed by: SURESH on Mar 05 2013 5:48P Read by: Jo VALENTIN M.D. [id number] on Mar 05 2013 5:48P Electronically Signed by: DR. Jo VALENTIN M.D. on: Mar 05 2013 5:48P Procedure Note Ishmael Valentin Jr., MD - 03/05/2013 FINAL Procedure: [facility] Mar 05 2013 9:18AM [id number] MAMMOGRAM DIGITAL SCREEN BILAT Reason for Exam: Screening FULL RESULT: HISTORY: Screening. TECHNIQUE: Bilateral digital mammogram with CAD. FINDINGS: Two views of each breast show scattered fibroglandular elements, bilaterally symmetric, with no dominant mass or suspicious microcalcification to suggest malignancy. No change from 03/04/2012, 02/23/2011. IMPRESSION: BI-RADS 1 - Negative, no evidence of malignancy. Normal interval followup in 12 months. OVERALL ASSESSMENT- NEGATIVE A letter of notification will be sent to the patient regarding the results. Transcribed by: SURESH on Mar 05 2013 5:48P Read by: Jo VALENTIN M.D. [id number] on Mar 05 2013 5:48P Electronically Signed by: DR. Jo VALENTIN M.D. on: Mar 05 2013 5:48P Rocio Dahl MD IMG MAMMOGRAPHY ORDERABLES Ed ited Result - Final documented in this encounter Visit Diagnoses Not on filedocumented [...] PM EST documented as of this encounter Care Teams Independent Driver Relationship Specialty Start Date End Date Rocio Dahl MD [address] [place] [address] PCP - General 07/15/12 documented as of this encounter
--- OUTSIDE RECORDS SUMMARY | 2025-02-17 09:20 | XMS_ITS | Encounter Summary ---
Author Organization [facility] Address [address], [address] [place] [address] Care Team Providers Care Electrical Software Engineer Name Role Phone Rocio Dahl MD Primary Care Provider [phone] Reason for Visit * Reason Comments Medicare AWV Hypothyroidism Hyperlipidemia Mental Health Problem Hypertension Chronic Kidney Disease On HCC gap Obesity On HCC gap Encounter Details Date Type Department Care Team (Late st Contact Info) Description 02/17/2025 9:20 AM EDT Office Visit [facility] [address] [place] [address] Rocio Dahl MD [address] [place] [address] Medicare annual wellness visit, subsequent (Primary Dx); Pure hypercholesterolemia; Dysthymic disorder; Primary hypertension; Gastroesophageal reflux disease without esophagitis; Acquired hypothyroidism; Stage 3a chronic kidney disease (HCC) Social History Tobacco Use Types Packs/Day Years Used Date Smoking Tobacco: Never Passive Smoke Exposure: Never Smokeless Tobacco: Never Tobacco Cessation:Counseling Given: Not Answered Alcohol Use Standard Drinks/Week Comments Never 0 (1 standard drink = 0.6 oz pur e alcohol) occasional [facility] Utilities Answer Date Recorded In the past 12 months has [employer] electric, gas, oil, or water company threatened to shut off services in your [...] money to buy more. Never true 08/20/19 25 Within the past 12 months, t he [...] place to sleep or slept in a jail (including now)? No 09/03/2022 Housing Stability Vital Sign Answer Matt e Recorded In the last 12 months, was t here a time when you were not able to pay the mortgage or rent on time? No 08/20/2024 In the past 12 months, how m any times have you moved where you were living? 20 08/20/2024 At any time in the past 12 m [facility], were you homeless or living in a jail (including now)? No 08/20/2024 AUDIT-C Answer Date [...] Orientation Straight 04/13/2020 12 :54 PM EDT documented as of this encounter Last Filed Vital Signs Vital Sign Reading Time Taken Comments Blood Pressure 108/70 02/17/2025 9:28 AM EDT Pulse 74 02/17/2025 9:28 AM EDT Temperature - - Respiratory Rate - - Oxygen Saturation 98% 02/17/2025 9:28 AM EDT Inhaled Oxygen Concentration - - Weight 94.3 kg (208 lb) 02/17/2025 9:28 AM EDT Height 162.6 cm (5' 4 ) 02/17/2025 9:28 AM EDT Body Mass Index 35.7 02/17/2025 9:28 AM EDT documented in this encounter Functional Status * Question Answer Date of Assessment Author Q1: How often do you have a drink containing alcohol? Never 02/17/2025 9:34 AM EDT Chel Carranza LPN Q2: How many drinks containing alcohol do you have on a typical day when you are drinking? Patient does not drink 02/17/2025 9:34 AM EDT Belen Carranza LPN Q3: How often do you have six or more drinks on one occasion? Never 02/17/2025 9:34 AM EDT Chel Carranza LPN * AUDIT-C Score Answer Date of Assessment Author 0 02/17/2025 9:34 AM EDT Aurelia Carranza LPN documented as of this encounter Patient Instructions * Patient Instructions* Rocio Dahl MD - 02/17/2025 10:10 AM EDT Images from the original note were not included. Starting a Weight-Loss Plan: Care Instructions Overview It can be a challenge to lose weight. But your doctor can help you make a weight-loss plan that meets your needs. You don't have to make a lot of big changes at once. A better idea might be to focus on small changes and stick with them. When those changes become habit, you can add a few more changes. Some people find it helpful to take an exercise or nutrition class. If you have questions, ask yourdoctor about seeing a registered dietitian or an surveillance specialist. You might also think about joining a weight-loss support group. If you're not ready to make changes right now, try to pick a date in the future. Then make an appointment with your doctor to talk about when and how you'll get started with a plan. Follow-up care is a godwin part of your treatment and safety. Be sure to make and go to all appointments, and call your doctor if you are having problems. It's also a good idea to know your test resultsand keep a list of the medicines you take. How can you care for yourself as you start a weight-loss plan? Set realistic goals. Many people expect to lose much more weight than is likely. A weight loss of 5% to 10% of your body weight may be enough to improve your health. Get family and friends involved to provide support. Talk to them about why you are trying to lose weight, and ask them to help. They can help by participating in exercise and having meals with you, even if they may be eating something different. Find what works best for you. If you do not have time or do not like to cook, a program that offersmeal replacement bars or shakes may be better for you. Or if you like to prepare meals, finding a plan that includes daily menus and recipes may be best. Ask your doctor about other health professionals who can help you achieve your weight-loss goals. A dietitian can help you make healthy changes in your diet. An surveillance specialist or personal banking representative can help you develop a safe and effective exercise program. A counselor or psychiatrist can help you cope with issues such as depression, anxiety, or family problems that can make it hard to focus on weight loss. Consider joining a support group for people who are trying to lose weight. Your doctor can suggest groups in your area. Where can you learn more? Go to https://www.[employer].net/patientEd and enter U357 to learn more about Starting a Weight-Loss Plan: Care Instructions. Current as of: October 29, 2023 Content Version: 14.5 ?? 1371-7751 [employer]. Care instructions adapted under license by [employer]. If you have questions about a medical condition or this instruction, always ask your healthcare professional. [employer], disclaims any warranty or liability for your use of this information. A Healthy Heart: Care Instructions Overview Coronary artery disease, also called heart disease, occurs when a substance called plaque builds upin the vessels that supply oxygen-rich blood to your heart muscle. This can narrow the blood vessels and reduce blood flow. A heart attack happens when blood flow is completely blocked. A high-fat diet, smoking, and other factors increase the risk of heart disease. Your doctor has found that you have a chance of having heart disease. A heart- healthy lifestyle canhelp keep your heart healthy and prevent heart disease. This lifestyle includes eating healthy, being active, staying at a weight that's healthy for you, and not smoking or using tobacco. It also includes taking medicines as directed, managing other health conditions, and trying to get a healthy amount of sleep. Follow-up care is a godwin part of your treatment and safety. Be sure to make and go to all appointments, and call your doctor if you are having problems. It's also a good idea to know your test resultsand keep a list of the medicines you take. How can you care for yourself at home? Diet Use less salt when you cook and eat. This helps lower your blood pressure. Taste food before salting. Add only a little salt when you think you need it. With time, your taste buds will adjust to lesssalt. Eat fewer snack items, fast foods, canned soups, and other high-salt, high-fat, processed foods. Read food labels and try to avoid saturated and trans fats. They increase your risk of heart disease by raising cholesterol levels. Limit the amount of solid fat--butter, margarine, and shortening--you eat. Use olive, peanut, or canola oil when you cook. Bake, broil, and steam foods instead of frying them. Eat a variety of fruit and vegetables every day. Dark green, deep orange, red, or yellow fruits andvegetables are especially good for you. Examples include spinach, carrots, peaches, and berries. Foods high in fiber can reduce your cholesterol and provide important vitamins and minerals. High-fiber foods include whole-grain cereals and breads, oatmeal, beans, brown rice, citrus fruits, and apples. Eat lean proteins. Heart-healthy proteins include seafood, lean meats and poultry, eggs, beans, peas, nuts, seeds, and soy products. Limit drinks and foods with added sugar. These include candy, desserts, and soda pop. Heart-healthy lifestyle If your doctor recommends it, get more exercise. For many people, walking is a good choice. Or you may want to swim, bike, or do other activities. Bit by bit, increase the time you're active every day. Try for at least 30 minutes on most days of the week. Try to quit or cut back on using tobacco and other nicotine products. This includes smoking and vaping. If you need help quitting, talk to your doctor about stop-smoking programs and medicines. Thesecan increase your chances of quitting for good. Quitting is one of the most important things you can do to protect your heart. It is never too late to quit. Try to avoid secondhand smoke too. Stay at a weight that's healthy for you. Talk to your doctor if you need help losing weight. Try to get 7 to 9 hours of sleep each night. Limit alcohol to 2 drinks a day for men and 1 drink a day for women. Too much alcohol can cause health problems. Manage other health problems such as diabetes, high blood pressure, and high cholesterol. If you think you may have a problem with alcohol or drug use, talk to your doctor. Medicines Take your medicines exactly as prescribed. Call your doctor if you think you are having a problem with your medicine. If your doctor recommends aspirin, take the amount directed each day. Make sure you take aspirin and not another kind of pain reliever, such as acetaminophen (Tylenol). When should you call for help? Call 911 if you have symptoms of a heart attack. These may include: Chest pain or pressure, or a strange feeling in the chest. Sweating. Shortness of breath. Pain, pressure, or a strange feeling in the back, neck, jaw, or upper belly or in one or both shoulders or arms. Lightheadedness or sudden weakness. A fast or irregular heartbeat. After you call 911, the heavy forging machine operator may tell you to chew 1 adult-strength or 2 to 4 low-dose aspirin. Wait for an ambulance. Do not try to drive yourself. Watch closely for changes in your health, and be sure to contact your doctor if you have any problems. Where can you learn more? Go to https://www.[employer].net/patientEd and enter F075 to learn more about A Healthy Heart: Care Instructions. Current as of: January 29, 2024 Content Version: 14.5 ?? 3660-2676 [employer]. Care instructions adapted under license by [employer]. If you have questions about a medical condition or this instruction, always ask your healthcare professional. [employer], disclaims any warranty or liability for your use of this information. Personalized Preventive Plan for Mary Jane Jefferson - 02/17/2025 Medicare offers a range of preventive health benefits. Some of the tests and screenings are paid infull while other may be subject to a deductible, co- insurance, and/or copay. Some of these benefits include a comprehensive review of your medical history including lifestyle, illnesses that may run in your family, and various assessments and screenings as appropriate. After reviewing your medical record and screening and assessments performed today your provider mayhave ordered immunizations, labs, imaging, and/or referrals for you. A list of these orders (if applicable) as well as your Preventive Care list are included within your After Visit Summary for your review. documented in this encounter Progress Notes * Rocio Dahl MD - 02/17/2025 10:09 AM EDT Medicare Annual Wellness Visit Mary Jane Jefferson is here for Medicare AWV, Hypothyroidism, Hyperlipidemia, Mental Health Problem, Hypertension, Chronic Kidney Disease (On HCC gap), and Obesity (On HCC gap) Assessment & Plan Medicare annual wellness visit, subsequent Pure hypercholesterolemia Dysthymic disorder Primary hypertension Gastroesophageal reflux disease without esophagitis Acquired hypothyroidism Stage 3a chronic kidney disease (HCC) Return in about 6 months (around 08/20/2025) for HTN, Hyperlipidemia, gerd, dysthymia , Hypothyroid,ckd. Subjective The following acute and/or chronic problems were also addressed today: 1.) Medicare 2.) chronics -- see other note Patient's complete Health Risk Assessment and screening values have been reviewed and are found in Flowsheets. The following problems were reviewed today and where indicated follow up appointments were made and/or referrals ordered. Positive Risk Factor Screenings with Interventions: Abnormal BMI (obese): Body mass index is 35.7 kg/m??. (!) Abnormal Interventions: Pt has lost a few pounds this summer and is walking and trying to eat healthy Objective Vitals: 02/17/25 0928 BP: 108/70 Pulse: 74 SpO2: 98% Weight: 94.3 kg (208 lb) Height: 1.626 m (5' 4 ) Body mass index is 35.7 kg/m??. PE - see other note Allergies Allergen Reactions Latex Itching Elemental Sulfur Itching Food Other reaction(s): Upset stomach Morphine Other (See Comments) Other reaction(s): Hallucinating, vomiting Sulfa Antibiotics Other (See Comments) hands red Sulfacetamide Itching Wheat Wheat gluten Escitalopram Itching and Rash Other reaction(s): Redness of Skin Hydrochlorothiazide Rash Motrin [Ibuprofen] Rash Triamterene Rash Prior to Visit Medications Medication Sig Taking? Authorizing Provider fluticasone (FLONASE) 50 MCG/ACT nasal spray 1 spray by Nasal route daily Yes Rocio Dahl MD citalopram (CELEXA) 20 MG tablet TAKE 1 TABLET BY MOUTH DAILY Yes Rocio Dahl MD estradiol (ESTRACE VAGINAL) 0.1 MG/GM vaginal cream Insert one inch of cream inside the vagina and placed an additional pea sized amount to the urethra and inner labia three nights per week. Do NOT use plastic applicator. Yes Yasmeen Thakkar, HEAVY MEDIA OPERATOR - SIVA dilTIAZem (CARDIZEM CD) 120 MG extended release capsule TAKE 1 CAPSULE BY MOUTH DAILY Yes Rocio Dahl MD apixaban (ELIQUIS) 5 MG TABS tablet Take 1 tablet by mouth 2 times daily Yes Reagan Pascal MD levothyroxine (SYNTHROID) 50 MCG tablet TAKE 1 TABLET EVERY DAY FOR HYPOTHYROIDISM Yes Rocio Dahl MD pravastatin (PRAVACHOL) 40 MG tablet TAKE 1 TABLET EVERY DAY Yes Rocio Dahl MD topiramate (TOPAMAX) 50 MG tablet TAKE 1 TABLET EVERY DAY Yes Rocio Dahl MD CALCIUM & MAGNESIUM CARBONATES PO Calcium & Magnesium Carbonates Active Yes Alexandra Ruiz MD pantoprazole (PROTONIX) 20 MG tablet Take one tablet daily Yes Rocio Dahl MD pilocarpine (SALAGEN) 5 MG tablet Take 1 tablet by mouth 3 times daily Yes Rocio Dahl MD Cholecalciferol (VITAMIN D) 2000 units CAPS capsule Take 1 capsule by mouth 2 times daily Yes Alexandra Ruiz MD docusate sodium (COLACE) 100 MG capsule Take 1 capsule by mouth Daily Yes Alexandra Ruiz MD aspirin 81 MG tablet Take 1 tablet by mouth daily Yes Alexandra Ruiz MD Psyllium-Calcium (METAMUCIL PLUS CALCIUM) CAPS Take by mouth Take with 8 oz water. Yes Alexandra Ruiz MD [employer] (Including outside providers/suppliers regularly involved in providing care): Patient Care Team: Rocio Dahl MD as PCP - General Rocio Dahl MD as PCP - Empaneled Provider Obie Hylton MD (Rheumatology) Zhao Schaeffer MD (Dermatology) Andre Toro MD (Urology) Reagan Pascal MD as Consulting Physician (Cardiology) Nawaf Hernandez DC (Chiropractic Medicine) Recommendations for Preventive Services Due: see orders and patient instructions/AVS. Recommended screening schedule for the next 5-10 years is provided to the patient in written form: see Patient Instructions/AVS. Reviewed and updated this visit: Tobacco Allergies Meds Problems Med Hx Surg Hx Fam Hx * Rocio Dahl MD - 02/17/2025 9:49 AM EDT HPI Notes Name: Mary Jane Jefferson : 1945 Chief Complaint: Chief Complaint Patient presents with Medicare AWV Hypothyroidism Hyperlipidemia Mental Health Problem Hypertension Chronic Kidney Disease On HCC gap Obesity On HCC gap History of Present Illness: Mary Jane Jefferson is a 79 y.o. female who presents with Medicare AWV, Hypothyroidism, Hyperlipidemia, Mental Health Problem, Hypertension, Chronic Kidney Disease (On HCC gap), and Obesity (On HCC gap) Hyperlipidemia This is a chronic problem. The current episode started more than 1 year ago. The problem is controlled. Recent lipid tests were reviewed and are normal. She has no history of diabetes. There are no known factors aggravating her hyperlipidemia. Pertinent negatives include no chest pain, leg pain or shortness of breath. Current antihyperlipidemic treatment includes statins. The current treatment provides significant improvement of lipids. Risk factors for coronary artery disease include dyslipidemia and hypertension. Mental Health Problem The primary symptoms do not include delusions, hallucinations, bizarre behavior or disorganized speech. Primary symptoms comment: Pt is overall doing well. Pt is in process of selling home in [place] and moving to [employer] in [place] which will be easier for her and her .. The current episode started more than 1 month ago. This is a chronic problem. The degree of incapacity that she is experiencing as a consequence of her illness is mild. Additional symptoms of the illness do not include appetite change, unexpected weight change, fatigue, headaches or abdominal pain. She does not admit to suicidal ideas. She does not have a plan to attempt suicide. She does not contemplate harming themself. She has not already injured self. She does not contemplate injuring another person. She has not already injured another person. Hypertension This is a chronic problem. The current episode started more than 1 year ago. The problem is unchanged. The problem is controlled. Pertinent negatives include no chest pain, headaches, malaise/fatigue, palpitations, peripheral edema or shortness of breath. There are no associated agents to hypertension. Risk factors for coronary artery disease include dyslipidemia and post-menopausal state. The current treatment provides significant improvement. Gastroesophageal Reflux She reports no abdominal pain, no chest pain, no choking or no dysphagia. Pt is overall doing well.Pt is in process of selling home in [place] and moving to [employer] in [place] which will be easier for her and her .. This is a chronic problem. The current episode started more than 1 year ago. The problem has been unchanged. Pertinent negatives include no fatigue or melena. She has tried a PPIfor the symptoms. The treatment provided significant relief. Hypothyroidism- Chronic/stable, Patient denies changes in weight,bowels,palpitations. Energy is good Last TSH 2.59 on 08/28/24 CKD - stable and will follow labs Past Medical History: Past Medical History: Diagnosis Date Basal cell carcinoma of forehead Bundle branch block Colon polyps Dr Haywood Diverticulitis Hyperlipidemia Hypothyroidism Migraines, neuralgic Osteoarthritis Dr Hylton Sleep apnea Tachycardia Reviewed all health maintenance requirements and ordered appropriate tests Health Maintenance Due Topic Date Due DTaP/Tdap/Td vaccine (2 - Td or Tdap) 12/31/2023 COVID-19 Vaccine ( season) 2024 Annual Wellness Visit (Medicare) 05/06/2024 Flu vaccine (1) 01/29/2025 Past Surgical History: Past Surgical History: Procedure Laterality Date ANKLE SURGERY 2007 repaired ligament CARPAL TUNNEL RELEASE CHOLECYSTECTOMY 2004 COLON SURGERY 2003 sigmoid resection COLONOSCOPY CYSTOSCOPY 03/2019 DILATATION, ESOPHAGUS ENDOSCOPY, COLON, DIAGNOSTIC EGD--stomach polyp removed HERNIA REPAIR HYSTERECTOMY (CERVIX STATUS UNKNOWN) age 29 JOINT REPLACEMENT rt and lt. knees JOINT REPLACEMENT 05/2012 lt hip SEPTOPLASTY Medications: Prior to Admission medications Medication Sig Start Date End Date Taking? Authorizing Provider fluticasone (FLONASE) 50 MCG/ACT nasal spray 1 spray by Nasal route daily 02/08/25 Yes Rocio Dahl MD citalopram (CELEXA) 20 MG tablet TAKE 1 TABLET BY MOUTH DAILY 01/20/25 Yes Rocio Dahl MD estradiol (ESTRACE VAGINAL) 0.1 MG/GM vaginal cream Insert one inch of cream inside the vagina and placed an additional pea sized amount to the urethra and inner labia three nights per week. Do NOT use plastic applicator. 12/22/24 Yes Yasmeen Thakkar, HEAVY MEDIA OPERATOR - SIVA dilTIAZem (CARDIZEM CD) 120 MG extended release capsule TAKE 1 CAPSULE BY MOUTH DAILY 12/03/24 Yes Rocio Dahl MD apixaban (ELIQUIS) 5 MG TABS tablet Take 1 tablet by mouth 2 times daily 08/31/24 Yes Reagan Pascal MD levothyroxine (SYNTHROID) 50 MCG tablet TAKE 1 TABLET EVERY DAY FOR HYPOTHYROIDISM 08/05/24 Yes Rocio Dahl MD pravastatin (PRAVACHOL) 40 MG tablet TAKE 1 TABLET EVERY DAY 08/05/24 Yes Rocio Dahl MD topiramate (TOPAMAX) 50 MG tablet TAKE 1 TABLET EVERY DAY 08/05/24 Yes Rocio Dahl MD CALCIUM & MAGNESIUM CARBONATES PO Calcium & Magnesium Carbonates Active Yes Alexandra Ruiz MD pantoprazole (PROTONIX) 20 MG tablet Take one tablet daily 05/15/21 Yes Rocio Dahl MD pilocarpine (SALAGEN) 5 MG tablet Take 1 tablet by mouth 3 times daily 05/05/18 Yes Rocio Dahl MD Cholecalciferol (VITAMIN D) 2000 units CAPS capsule Take 1 capsule by mouth 2 times daily Yes Alexandra Ruiz MD docusate sodium (COLACE) 100 MG capsule Take 1 capsule by mouth Daily Yes Alexandra Ruiz MD aspirin 81 MG tablet Take 1 tablet by mouth daily Yes Alexandra Ruiz MD Psyllium-Calcium (METAMUCIL PLUS CALCIUM) CAPS Take by mouth Take with 8 oz water. Yes ProviderAlexandra MD Allergies: Latex, Elemental sulfur, Food, Morphine, Sulfa antibiotics, Sulfacetamide, Wheat, Escitalopram, Hydrochlorothiazide, Motrin [ibuprofen], and Triamterene Social History: Tobacco: reports that she has never smoked. She has never been exposed to tobacco smoke. She has never used smokeless tobacco. Alcohol: reports no history of alcohol use. Drug Use: reports no history of drug use. Family History: Family History Problem Relation Age of Onset Heart Disease Mother Diabetes Mother Other Father accident Other Sister scleroderma Breast Cancer Sister Breast Cancer Maternal Aunt Review of Systems: Review of Systems Constitutional: Negative for appetite change, chills, fatigue, fever, malaise/fatigue and unexpected weight change. Eyes: Negative for discharge, redness and visual disturbance. Respiratory: Negative for choking and shortness of breath. Cardiovascular: Negative for chest pain and palpitations. Gastrointestinal: Negative for abdominal pain, blood in stool, constipation, diarrhea, dysphagia, melena and vomiting. Genitourinary: Negative for dysuria and hematuria. Musculoskeletal: Negative for joint swelling. Skin: Negative for rash. Neurological: Negative for dizziness, tremors, light-headedness and headaches. Psychiatric/Behavioral: Negative for hallucinations and sleep disturbance. Physical Exam: Physical Exam Vitals reviewed. Constitutional: General: She is not in acute distress. Appearance: Normal appearance. She is well-developed. She is not ill-appearing. HENT: Head: Normocephalic and atraumatic. Right Ear: Tympanic membrane, ear canal and external ear normal. There is no impacted cerumen. Left Ear: Tympanic membrane, ear canal and external ear normal. There is no impacted cerumen. Eyes: General: Right eye: No discharge. Left eye: No discharge. Conjunctiva/sclera: Conjunctivae normal. Neck: Thyroid: No thyromegaly. Vascular: No carotid bruit. Cardiovascular: Rate and Rhythm: Normal rate and regular rhythm. Heart sounds: Normal heart sounds. No murmur heard. Pulmonary: Effort: Pulmonary effort is normal. Breath sounds: Normal breath sounds. Abdominal: General: There is no distension. Palpations: Abdomen is soft. Tenderness: There is no abdominal tenderness. Musculoskeletal: Cervical back: Neck supple. Right lower leg: No edema. Left lower leg: No edema. Lymphadenopathy: Cervical: No cervical adenopathy. Skin: Findings: No erythema or rash. Neurological: Mental Status: She is alert. Psychiatric: Mood and Affect: Mood normal. Behavior: Behavior normal. Vitals: BP 108/70 Pulse 74 Ht 1.626 m (5' 4 ) Wt 94.3 kg (208 lb) LMP (LMP Unknown) SpO2 98% BMI 35.70 kg/m?? Data: Lab Results Component Value Date/Time NA 142 08/28/2024 08:01 AM K 4.2 08/28/2024 08:01 AM CL 105 08/28/2024 08:01 AM CO2 26 08/28/2024 08:01 AM BUN 28 08/28/2024 08:01 AM CREATININE 1.3 08/28/2024 08:01 AM GLUCOSE 96 08/28/2024 08:01 AM GLUCOSE 111 05/26/2011 03:08 PM BILITOT 0.5 08/28/2024 08:01 AM ALKPHOS 58 08/28/2024 08:01 AM AST 17 08/28/2024 08:01 AM ALT 11 08/28/2024 08:01 AM Lab Results Component Value Date/Time WBC 5.0 08/28/2024 08:01 AM RBC 3.97 08/28/2024 08:01 AM RBC 3.95 05/26/2011 03:08 PM HGB 12.4 08/28/2024 08:01 AM HCT 37.7 08/28/2024 08:01 AM MCV 95.0 08/28/2024 08:01 AM MCH 31.2 08/28/2024 08:01 AM MCHC 32.9 08/28/2024 08:01 AM RDW 13.8 08/28/2024 08:01 AM PLT 213 08/28/2024 08:01 AM PLT 195 05/26/2011 03:08 PM MPV 9.5 08/28/2024 08:01 AM Lab Results Component Value Date/Time TSH 2.59 08/28/2024 08:01 AM Lab Results Component Value Date/Time CHOL 145 08/28/2024 08:01 AM LDL 74 08/28/2024 08:01 AM LDL 59 08/21/2022 12:00 AM HDL 52 08/28/2024 08:01 AM LABA1C 5.3 01/29/2019 09:53 AM Assessment/Plan: 1. Pure hypercholesterolemia Stable on the pravachol and labs in Mar 2. Dysthymic disorder Stable on the celexa 3. Primary hypertension Stable on cardizem 4. Gastroesophageal reflux disease without esophagitis Stable and filled Rx for protonix 5. Acquired hypothyroidism Stable on the synthroid 6. Stage 3a chronic kidney disease (HCC) Stable and has labs in Mar for Dr Pascal 7. Medicare annual wellness visit, subsequent Completed -- see other note Return in about 6 months (around 08/20/2025) for HTN, Hyperlipidemia, gerd, dysthymia , Hypothyroid,ckd. documented in this encounter Plan of Treatment Upcoming Encounters Date Type Department Care Team (Late st Contact Info) Description 03/17/2025 9:00 AM EDT Office Visit [facility] [employer] [address] [place] [id number] Reagan Pascal MD [address] [place] [address] 08/23/2025 9:00 AM EST Office Visit [facility] [address] [place] [phone] Rocio Dahl MD [address] [place] [address] Return in about 6 months (around 08/20/2025) for HTN, Hyperlipidemia, gerd, dysthymia , Hypothyroid, ckd. 12/23/2025 8:30 AM EDT Office Visit [facility] Part of [address] [place] [address] Yasmeen Thakkar, HEAVY MEDIA OPERATOR - BROKE WORKER [address] [place] [address] [address] [place] [address] 1Y f/u documented as of this encounter Goals Goal Patient Goal Type Associated Problems Recent Progress Patient-Stated? Author get rid of UTI Lifestyle No Fuhrer, Marylin documented as of this encounter Visit Diagnoses Diagnosis Medicare annual wellness visit, subsequent- Primary Routine general medical examination at a health care facility Pure hypercholesterolemia Dysthymic disorder Primary hypertension Unspecified essential hypertension Gastroesophageal reflux disease without esophagitis Esophageal reflux Acquired hypothyroidism Unspecified hypothyroidism Stage 3a chronic kidney disease (HCC) documented in this encounter Additional Health Concerns Assessment Noted Time A fall risk assessment has been complete d for the patient 02/17/2025 9:33 AM EDT documented as of this encounter Care Teams Electrical Software Engineer Relationship Specialty Start Date End Date Rocio Dahl MD [address] [place] [address] PCP - General 07/15/12 documented as of this encounter
--- OUTSIDE RECORDS SUMMARY | 2025-02-22 11:00 | XMS_ITS | Clinical Summary ---
Author Organization [facility] Address [address] [place] [address] Care Team Providers Care Cigar Maker Name Role Phone Rocio Dahl MD Primary Care Provider [phone] Allergies Active Allergy Reactions Criticality Noted Date [...] . 30 g 01/16/20 25 026 Active clotrimazole (MYCELEX) 10 mg darling Take1 (one) tablet (10 mg total)by mouth 3 (three) times a day for 30 doses.Allow darling to dissolve slowly in the mouth. 30 Darling 01/16/20 25 025 doxycycline hyclate (VIBRAMYCIN) 100 MG capsuleIndicati ons:Cough, unspecified type,Nasal congestion Take 1 (one) capsule (100 mg total) by mouth 2 (two) times a day for 10 days . 20 capsule 02/06/20 25 025 clotrimazole (MYCELEX) 10 mg trocheIndicatio ns:Sore throat Take1 (one) tablet (10 mg total)by mouth 5 (five) times a day for 10 days.Allow darling to dissolve slowly in the mouth. 50 tablet 02/06/20 25 025 Active Problems Problem Noted Date Diagnosed Date Acute suppurative otitis med ia of left ear without spontaneous rupture of tympanic membrane 05/02/2023 ROSETTE on CPAP 05/02/2023 Bruxism (teeth grinding) 05/02/2023 Hearing loss 05/02/2023 Encounters Date Type Department Care Team Description 02/05/2025 10:00 AM EDT Office Visit [facility] [place] [address] [place] [address] Cinthya Fortune PA-C Cough, unspecified type (Primary Dx); Sore throat; Nasal congestion 01/15/2025 9:15 AM EDT Office Visit [facility] [address] [place] [address] Angelito Toribio PA-C Bacterial URI (Primary Dx); [...] Tetanus: Every 10yrs 12/31/2023 12/30/2013 COVID-19 Vaccine (5 - 2023-2 5 season) 2024 05/08/2022, 06/27/2021, 08/26/2020, Additional [...] [id number] Cinthya Fortune PA-C IMG DIAGNOSTIC IMAGING [place]DE [place] Final Result from Last 3 Months Insurance MEDICARE PART A & B [facility] [employer] Care Teams Cigar Maker Relationship Specialty Start Date End Date Rocio Dahl MD [facility] [address] [address] [place] [address] PCP - General Family Medicine 04/24/23
--- OUTSIDE RECORDS SUMMARY | 2025-02-22 11:00 | XMS_ITS | Encounter Summary ---
Author Organization [facility] Address [address], [address] [place] [address] Care Team Providers Care Inter Fold Roll Cutter Name Role Phone Rocio Dahl MD Primary Care Provider [phone] Reason for Visit * Reason Onset Date Comments Medication Refill 02/08/2025 Encounter Details Date Type Department Care Team (Late st Contact Info) Description 02/08/2025 Refill [facility] [place] [address] [place] [address] David Norton, DO [address] [id number] Medication Refill Social History Tobacco Use Types Packs/Day Years Used Date Smoking Tobacco: Never Passive Smoke Exposure: Never Smokeless Tobacco: Never Alcohol Use Standard Drinks/Week Comments No 0 (1 standard drink = 0.6 oz pur e alcohol) occasional C Utilities Answer Date Recorded In the past 12 months has [employer], gas, oil, or water [employer] threatened to shut off services in your [...] PHQ-2 Answer Date Recorded PHQ-9 Total Score 1 08/20/2024 Exercise Vital Sign Answer Date Recorde d [...] place to sleep or slept in a halfway (including now)? No 09/03/2022 Housing Stability Vital Sign Answer Matt e Recorded In the last 12 months, was t here a time when you were not able to pay the mortgage or rent on time? No 08/20/2024 In the past 12 months, how m any times have you moved where you were living? 20 08/20/2024 At any time in the past [facility], were you homeless or living in a halfway (including now)? No 08/20/2024 Food Insecurity Answer Date Recorded Within the [...] PM EDT documented as of this encounter Plan of Treatment Upcoming Encounters Date Type Department Care Team (Late st Contact Info) Description 03/17/2025 9:00 AM EDT Office Visit [facility] [address] [place] [phone] Reagan Pascal MD [address] [place] [address] 08/23/2025 9:00 AM EST Office Visit [facility] [place] [address] [place] [address] Rocio Dahl MD [address] [place] [address] Return in about 6 months (around 08/20/2025) for HTN, Hyperlipidemia, gerd, dysthymia , Hypothyroid, ckd. 12/23/2025 8:30 AM EDT Office Visit [facility] Part of [address] [place] [address] Yasmeen Thakkar, DENTAL SCHEDULING COORDINATOR - SUGAR BOILER [address] [place] [address] [address] [place] [address] 1Y f/u documented as of this encounter Goals Goal Patient Goal Type Associated Problems Recent Progress Patient-Stated? Author get rid of UTI Lifestyle Marylin August documented as of this encounter Visit Diagnoses Diagnosis Acute pansinusitis, recurrence not specified documented in this encounter Additional Health Concerns Assessment Noted Time A fall risk assessment has been complete d for the patient 08/20/2024 2:36 PM EST documented as of this encounter Care Teams Inter Fold Roll Cutter Relationship Specialty Start Date End Date Rocio Dahl MD [address] [place] [address] PCP - General 07/15/12 documented as of this encounter
--- OUTSIDE RECORDS SUMMARY | 2025-02-22 11:00 | XMS_ITS | Encounter Summary ---
Author Organization [facility] Address [address], [address] [place] [address] Care Team Providers Care Pin Puller Name Role Phone Rocio Dahl MD Primary Care Provider [phone] Reason for Visit * Reason Onset Date Comments Medication Refill 08/19/2012 Encounter Details Date Type Department Care Team (Late st Contact Info) Description 08/19/[address] [facility] [place] [address] [place] [address] Rocio Dahl MD [address] [place] [address] Medication Refill Social History Tobacco Use Types Packs/Day Years Used Date Smoking Tobacco: Never Alcohol Use Standard Drinks/Week Comments No 0 (1 standard drink = 0.6 oz pur e alcohol) occasional Comments No Sex and Gender Information Value Date Recorded Sex Assigned at Female 01/27/2021 12:20 PM EDT Legal Sex Female 9:20 AM EST Gender Identity Female 01/27/2021 12:20 PM EDT Sexual Orientation Straight 04/13/2020 12 :54 PM EDT documented as of this encounter Plan of Treatment Upcoming Encounters Date Type Department Care Team (Late Contact Info) Description 03/17/2025 9:00 AM EDT Office Visit [facility] [address] [place] [phone] Reagan Pascal MD [address] [place] [address] 08/23/2025 9:00 AM EST [facility] [address] [place] [phone] Rocio Dahl MD [address] [place] [address] Return in about 6 months (around 08/20/2025) for HTN, Hyperlipidemia, gerd, dysthymia , Hypothyroid, ckd. 12/23/2025 8:30 AM EDT Office Visit [facility] Part of [address] [place] [phone] Yasmeen Thakkar, DEPUTY CHIEF SHERIFF - [employer] [address] [place] [address] [address] [place] [phone] 1Y f/u documented as of this encounter Visit Diagnoses [...] EDT COVID-19 (Rule Out) 07/01/2023 07/01/2023 07/01/19 4:10 PM EST COVID-19 07/01/2023 07/01/2023 07/15/2023 9:27 PM EST COVID-19 (Rule Out) 06/24/2024 06/24/2024 06/24/20 5:56 PM EST COVID-19 06/24/2024 06/24/2024 07/08/2024 9:27 PM EST documented as of this encounter Care Teams Pin Puller Relationship Specialty Start Date End Date Rocio Dahl MD [address] [place] [address] PCP - General 07/15/12 documented as of this encounter
--- OUTSIDE RECORDS SUMMARY | 2025-02-22 11:00 | XMS_ITS | Encounter Summary ---
Author Organization [facility] Address [address] [place] [address] Care Team Providers Care Bag Cutter Name Role Phone Rocio Dahl MD Primary Care Provider [phone] Reason for Referral * Evaluate and Treat (Routine) - Closed Specialty Diagnoses / Procedures Referred By Contac t Referred To Contact Otolaryngology Diagnoses Acute suppurative otitis media of left ear without spontaneous rupture of tympanic membrane, recurrence not specified Pastora Flores, LINOTYPIST [address] [place] [address] Phone: tel: fax: Grayson Hutchinson Jr., [address] [place] [address] Phone: tel: fax:[phone] Referral ID Status Reason Start Date Expiration Date V isits Requested Visits Authorized [id number] Closed Specialty Services Required/[facility]'s Best Interest 04/24/2023 04/23/2024 1 1 Encounter Details Date Type Department Care Team (Latest Contact Info) Description 04/24/2023 Transcribe Orders [facility] [address] [place] [address] Grayson Hutchinson Jr., DO [address] [place] [address] (Fax) Acute suppurative otitis media of left [...] Primary documented in this encounter Care Teams Bag Cutter Relationship Specialty Start Date End Date Rocio Dahl MD [address] [place] [address] PCP - General Family Medicine 04/24/23 documented as of this encounter
--- OUTSIDE RECORDS SUMMARY | 2025-02-22 11:00 | XMS_ITS | Encounter Summary ---
Author Organization [facility] Address [address], [address] [place] [address] Care Team Providers Care Off Track Betting Manager Name Role Phone Rocio Dahl MD Primary Care Provider [phone] Reason for Visit * Reason Onset Date Comments Medication Refill 08/19/2012 Encounter Details Date Type Department Care Team (Late st Contact Info) Description 08/19/2012 Refill [facility]I [address] [place] [address] Michi Bradshaw MD [address] [place] [address] Medication Refill Social History Tobacco Use Types [...] Description 03/17/2025 9:00 AM EDT Office Visit [facility] Director Of Resource Development [address] [place] [phone] Reagan Pascal MD [address] [place] [address] 08/23/2025 9:00 AM EST Office Visit [facility] [address] [place] [phone] Rocio Dahl MD [address] [place] [address] Return in about 6 months (around 08/20/2025) for HTN, Hyperlipidemia, gerd, dysthymia , Hypothyroid, ckd. 12/23/2025 8:30 AM EDT Office Visit [facility] UROLOG[facility] Part of [address] [place] [address] Yasmeen Thakkar, ENVIRONMENTAL AIR SPECIALIST - LAW SECRETARY [address] [place] [address] [address] [place] [phone] 1Y f/u documented as of this encounter [...] documented as of this encounter Care Teams Off Track Betting Manager Relationship Specialty Start Date End Date Rocio Dahl MD [address] [place] [address] PCP - General 07/15/12 documented as of this encounter
--- OUTSIDE RECORDS SUMMARY | 2025-02-22 11:01 | XMS_ITS | Clinical Summary ---
Author Organization [facility] Address [address], [address] [place] [address] Care Team Providers Care Lathing Supervisor Name Role Phone Rocio Dahl MD Primary Care Provider [phone] Allergies Active Allergy Reactions Criticality Noted Date Comments Elemental Sulfur Itching 02/19/2020 Escitalopram Itching,Rash Low 01/19/2015 Other reaction(s): Redness of Skin Food 09/07/2021 Other reaction(s): Upset stomach Hydrochlorothiazide Rash Low 02/19/2020 Latex Itching 02/08/2011 Morphine Other (See Comments) 02/08/2011 Other reaction(s): Hallucinating, vomiting Ibuprofen Rash Low 01/29/2019 Sulfa Antibiotics Other (See Comments) 07/04/19 08 hands red Sulfacetamide Itching 02/19/2020 Triamterene Rash Low 01/29/2019 Wheat 02/08/2011 Wheat gluten Medications Psyllium-Calciu m (METAMUCIL PLUS CALCIUM) CAPS Take by mouth Take with 8 oz water. Active aspirin 81 MG tablet Take 1 tablet by mouth daily Active docusate sodium (COLACE) 100 MG capsule Take 1 capsule by mouth Daily Active Cholecalciferol (VITAMIN D) 2000 units CAPS capsule Take 1 capsule by mouth 2 times daily Active pilocarpine (SALAGEN) 5 MG tablet Take 1 tablet by mouth 3 times daily 270 tablet 1 05/05/20 18 Active CALCIUM & MAGNESIUM CARBONATES PO Calcium & Magnesium Carbonates Active Active levothyroxine (SYNTHROID) 50 MCG tablet TAKE 1 TABLET EVERY DAY FOR HYPOTHYROIDISM 90 tablet 3 08/05/19 25 Active pravastatin (PRAVACHOL) 40 MG tablet TAKE 1 TABLET EVERY DAY 90 tablet 3 08/05/19 25 Active topiramate (TOPAMAX) 50 MG tablet TAKE 1 TABLET EVERY DAY 90 tablet 3 08/05/19 25 Active apixaban (ELIQUIS) 5 MG TABS tablet Take 1 tablet by mouth 2 times daily 180 tablet 3 09/01/19 25 Active dilTIAZem (CARDIZEM CD) 120 MG extended release capsuleIndicati ons:Atrial fibrillation, unspecified type (HCC) TAKE 1 CAPSULE BY MOUTH DAILY 90 capsule 3 12/04/19 25 Active estradiol (ESTRACE VAGINAL) 0.1 MG/GM vaginal creamIndication s:Frequent UTI,Vaginal atrophy,Mixed incontinence urge and stress Insert one inch of cream inside the vagina and placed an additional pea sized amount to the urethra and inner labia three nights per week. Do NOT use plastic applicator. 1 each 3 12/23/19 25 Active citalopram (CELEXA) 20 MG tabletIndicatio ns:Dysthymic disorder TAKE 1 TABLET BY MOUTH DAILY 90 tablet 3 01/21/20 25 Active fluticasone (FLONASE) 50 MCG/ACT nasal sprayIndication s:Acute pansinusitis, recurrence not specified 1 spray by Nasal route daily 3 each 1 02/09/20 25 Active pantoprazole (PROTONIX) 20 MG tablet Take one tablet daily 90 tablet 1 02/18/20 25 Active pantoprazole (PROTONIX) 20 MG tablet Take one tablet daily 90 tablet 1 05/15/20 21 025 Discontinu ed(REORDER ) fluticasone (FLONASE) 50 MCG/ACT nasal sprayIndication s:Acute pansinusitis, recurrence not specified 1 spray by Nasal route daily 3 each 1 02/11/20 24 025 Discontinu ed(REORDER ) nystatin (MYCOSTATIN) 705411 UNIT/ML suspension 11/26/19 25 025 Discontinu ed(Therapy completed) betamethasone valerate (VALISONE) 0.1 % cream Apply topically daily 01/16/20 25 025 Discontinu ed(Therapy completed) clotrimazole (MYCELEX) 10 MG darling Take 1 tablet by mouth 3 times daily 01/16/20 25 025 amoxicillin-cla vulanate (AUGMENTIN) 875-125 MG per tablet Take 1 tablet by mouth 2 times daily for 7 days 14 tablet 01/22/20 25 025 Active Problems Patient Care Coordination No te Formatting of this note migh t be different from the original. Patient is enrolled in [facility] Enrollment reason- CKD 3a Please see media tab for progress notes For questions contact: TAHIR March [facility] Final Cleaner [phone] [email or web address] Problem Noted Date Diagnosed Date Atrial fibrillation 02/11/2024 Gross hematuria 11/13/2023 Mixed incontinence urge and stress 11/13/2023 Localized, primary osteoarthritis of shoulder re gion 02/09/2022 Primary generalized (osteo)arthritis 08/11/2021 Diverticulosis 03/03/2021 Tubular adenoma of colon 03/03/2021 Morbidly obese 01/25/2020 Vitamin D deficiency disease 07/21/2018 Cortical senile cataract 01/31/2015 Sleep apnea 08/21/2012 GERD (gastroesophageal reflux disease) 3 Gastritis 05/05/2012 Dysthymic disorder 04/24/2011 Sinusitis, chronic 04/24/2011 Irritable bowel syndrome 04/24/2011 Palpitations 04/24/2011 Diaphragmatic hernia 04/24/2011 History of benign neoplasm of stomach 04/24/2011 Hyperlipidemia 02/08/2011 Migraine 02/08/2011 Hypothyroidism 02/08/2011 Diverticulitis 02/08/2011 Hypertension Resolved Problems Problem Noted Date Diagnosed Date Resolved Date Chronic renal disease, stage III (HCC) [134439] 03/22/2023 08/20/2024 Chronic renal disease, stage III (HCC) [354856] 10/26/2021 05/03/2022 Systemic involvement of connective tissue 07/28/2020 07/28/2020 Lump in neck 08/28/2013 07/11/2017 Epigastric pain 04/30/2012 07/16/2016 Dysphagia 04/30/2012 07/16/2016 Tongue pain 01/14/2012 12/29/2015 Migraines, neuralgic 017 Atypical atrial flutter 12/30 Tachycardia 07/16/2016 Encounters Date Type Department Care Team Description 02/17/2025 9:20 AM EDT Office Visit [address] [address] Rocio Dahl MD Medicare annual wellness visit, subsequent (Primary Dx); Pure hypercholesterolemia ; Dysthymic disorder; Primary hypertension; Gastroesophageal reflux disease without esophagitis; Acquired hypothyroidism; Stage 3a chronic kidney disease (HCC) 02/08/[address] [address] David Norton, Medication Refill 01/21/2025 1:00 PM EDT Office Visit [address] [address] Rocio Dahl MD Other acute recurrent sinusitis (Primary Dx) 01/19/[address] [address] Rocio Dahl MD Medication Refill 12/22/2024 11:13 AM EDT - 12/22/2024 11:59 PM EDT Hospital Encounter [address] [phone] Gross hematuria Discharge Disposition: Home or Self Care 12/22/2024 9:15 AM EDT Office Visit [facility] UROLOGY Part [address] [place] [address] Yasmeen Thakkar, METAL MOULDER'S ASSISTANT - REGIONAL TRAINING MANAGER Gross hematuria (Primary Dx); Frequent UTI; Vaginal atrophy; Mixed incontinence urge and stress 12/22/2024 Results Follow-Up [facility] [address] [phone] Yasmeen Thakkar, METAL MOULDER'S ASSISTANT - REGIONAL TRAINING MANAGER 12/02/[address] [address] Rocio Dahl MD Medication Refill 11/30/2024 8:20 AM EDT Office Visit [facility] CARE LOI [address] [place] [address] Rocio Dahl MD Other acute recurrent sinusitis (Primary Dx) from Last 3 Months Immunizations Immunization Administration Dates Next Due COVID-19, MODERNA BLUE borde r, Primary or Immunocompromised, (age 12y+), IM, 100 mcg/0.5mL 08/26/2020,07/29/2020 COVID-19, MODERNA Booster BL UE border, (age 18y+), IM, 50mcg/0.25mL 06/27/2021 Influenza Virus Vaccine 03/15/2020,04/10,04/12/2015,2013,07/17/2013 Influenza, FLUAD, (age 65 y+ ), IM, Quadv, 0.5mL 05/06/2023,05/03/2022,05/02/2021 Influenza, FLUAD, (age 65 y+ ), IM, Trivalent PF, 0.5mL 03/31/2024 Influenza, FLUARIX, FLULAVAL , FLUZONE (age 6 mo+) and AFLURIA, (age 3 y+), Quadv PF, 0.5mL 03/15/2020,04/14/2019,04/07/2018 Influenza, FLUZONE High Dose (age 65 y+), IM, Quadv, 0.7mL 03/15/2020 Influenza, FLUZONE High Dose , (age 65 y+), IM, Trivalent PF, 0.5mL 04/10/2017,05/14/2016 Pneumococcal, PCV-13, PREVNA R 13, (age 6w+), IM, 0.5mL 03/01/2016 Pneumococcal, PPSV23, PNEUMO VAX 23, (age 2y+), SC/IM, 0.5mL 03/31/2011 RSV, ABRYSVO, ( or a ge 60y+), PF, IM, 0.5mL 04/23/2024 TD 5LF, TENIVAC, (age 7y+), IM, 0.5mL 12/30/2013 TDaP, ADACEL (age 10y-64y), BOOSTRIX (age 10y+), IM, 0.5mL 12/30/2013 Td, unspecified formulation 12/30/2013 Zoster Live (Zostavax) 10/24/2011 Zoster Recombinant (Shingrix) 05/12/2020, 020 Family History Medical History Relation Name Comments Other Father age 23 accident Breast Cancer Maternal Aunt Diabetes Mother age 73 Heart Disease Mother age 73 Breast Cancer Sister Other Sister scleroderma Relation Name Status Comments Father age 23 Maternal Aunt Alive Mother age 73 Sister Social History Tobacco Use Types Packs/Day Years Used Date Smoking Tobacco: Never Passive Smoke Exposure: Never Smokeless Tobacco: Never Tobacco Cessation:Counseling Given: Not Answered Alcohol Use Standard Drinks/Week Comments Never 0 (1 standard drink = 0.6 oz pur e alcohol) occasional [employer] Utilities Answer Date Recorded In the past 12 months has Software 2000, gas, oil, or water [employer] threatened to shut off services in your [...] any time in the past 12 m [facility], were you homeless or living in a [...] Orientation Straight 04/13/2020 12 :54 PM EDT Last Filed Vital Signs Vital Sign Reading Time Taken Comments Blood Pressure 108/70 02/17/2025 9:28 AM EDT Pulse 74 02/17/2025 9:28 AM EDT Temperature 36.9 C (98.4 F) 01/21/2025 1:21 PM EDT Respiratory Rate 17 07/10/2024 6:30 AM EST Oxygen Saturation 98% 02/17/2025 9:28 AM EDT Inhaled Oxygen Concentration - - Weight 94.3 kg (208 lb) 02/17/2025 9:28 AM EDT Height 162.6 cm (5' 4 ) 02/17/2025 9:28 AM EDT Body Mass Index 35.7 02/17/2025 9:28 AM EDT Plan of Treatment Upcoming Encounters Date Type Department Care Team (Late st Contact Info) Description 03/17/2025 9:00 AM EDT Office Visit [facility] Ecommerce Marketing Specialist [address] [place] [phone] Reagan Pascal MD [address] [place] [address] 08/23/2025 9:00 AM EST Office Visit [facility] [address] [place] [address] Rocio Dahl MD [address] [place] [address] Return in about 6 months (around 08/20/2025) for HTN, Hyperlipidemia, gerd, dysthymia , Hypothyroid, ckd. 12/23/2025 8:30 AM EDT Office Visit [facility] UROLOG[facility] Part of [facility] [address] [place] [address] Yasmeen Thakkar, METAL MOULDER'S ASSISTANT - REGIONAL TRAINING MANAGER [address] [place] [address] 1Y f/u Health Maintenance Due Date Last Done Comments DTaP/Tdap/Td vaccine (2 - Td or Tdap) 12/31/2023 12/30/2013, 12/30/2013, 12/30/2013 COVID-19 Vaccine ( season) 2024 05/08/2022, 06/27/2021, 08/26/2020, Additional history exists Flu vaccine (#1) 01/29/2025 03/31/2024, 11/2022, 05/03/2022, Additional history exists Lipids 08/28/2025 08/28/2024, 08/02, 08/21/2022, Additional history exists Depression Monitoring 02/17/2026 02/17/2025, 025 Annual Wellness Visit (Medicare) 02/18/2026 02/17/2025, 05/06/2023, 05/03/2022, Additional history exists Pneumococcal 50+ years Vaccine Completed 03/01/2016, 03/31/2011 DEXA (modify frequency per FRAX score) Completed 11/12/2018, 04/18/2016, 10/24/2011 Shingles vaccine Completed 05/12/2020, , 10/24/2011 Colonoscopy Discontinued 09/16/2023, 01/29, 02/16/2021, Additional history exists Respiratory Syncytial Virus (RSV) or age 60 yrs+ Completed 04/23/2024 Hepatitis A vaccine Aged Out No longe r eligible based on patient's age to complete this topic Hepatitis B vaccine Aged Out No longe r eligible based on patient's age to complete this topic Hib vaccine Aged Out No longer eligi ble based on patient's age to complete this topic Meningococcal (ACWY) vaccine Aged Out No longer eligible based on patient's age to complete this topic Meningococcal B vaccine Aged Out No l onger eligible based on patient's age to complete this topic Polio vaccine Aged Out No longer elig ible based on patient's age to complete this topic Goals Goal Patient Goal Type Associated Problems Recent Progress Patient-Stated? Author get rid of UTI Lifestyle No Marylin Bonilla Procedures Procedure Name Priority Date/Time Associated Diagnosis Comments WILVER,POST-VOID RES,US,NON-IMAGING Routine 12/22/2024 9:51 AM EDT Mixed incontinence urge and stress URINALYSIS WITH MICROSCOPIC Routine 12/22/2024 9:50 AM EDT Gross hematuria LIPID PANEL Routine 08/28/2024 8:01 AM EST Essential hypertension Palpitations Hyperlipidemia, unspecified hyperlipidemia type Hypothyroidism, unspecified type Vitamin D deficiency disease HM COLONOSCOPY Routine 09/16/2023 6:50 AM EDT HM DEXA SCAN Routine 11/12/2018 from Last 3 Months or Most Recently Relevant to Health Maintenance Results * Urinalysis with Microscopic (12/22/2024 9:50 AM EDT) Color, UA Yellow Yellow 12/22/2024 9:50 AM [facility] Turbidity UA Clear Clear 12/22/2024 9:50 AM [facility] Glucose, Ur NEGATIVE NEGATIVE mg/dL 12/22/2024 9:50 AM [facility] Bilirubin, Urine NEGATIVE NEGATIVE 12/22/2024 9:50 AM [facility] Ketones, Urine NEGATIVE NEGATIVE mg/dL 12/22/2024 9:50 AM [facility] Specific [place], UA 1.020 1.010 - 1.020 12/22/2024 9:50 AM [facility] Urine Hgb NEGATIVE NEGATIVE 12/22/2024 9:50 AM [facility] pH, Urine 6.0 5.0 - 9.0 12/22/2024 9:50 AM [facility] Protein, UA NEGATIVE NEGATIVE mg/dL 12/22/2024 9:50 AM EDT [facility] Urobilinogen, Urine Normal 0.0 - 1.0 EU/dL 12/22/2024 9:50 AM EDT [facility] Nitrite, Urine NEGATIVE NEGATIVE 12/22/2024 9:50 AM EDT [facility] Leukocyte Esterase, Urine NEGATIVE NEGATIVE 12/22/2024 9:50 AM EDT [facility] WBC, UA 0 TO 2 0 - 5 /HPF 12/22/2024 9:50 AM EDT [facility] RBC, UA 0 TO 2 0 - 2 /HPF 12/22/2024 9:50 AM EDT [facility] Epithelial Cells, UA 2 TO 5 0 - 25 /HPF 12/22/2024 9:50 AM T [facility] Urine URINE SPECIMEN / Unknown 12/22/2024 9:50 AM EDT 12/22/2024 11:23 AM EDT Yasmeen Thakkar METAL MOULDER'S ASSISTANT - REGIONAL TRAINING MANAGER URINE ORDERABLES Fi nal Result [facility] [address] [phone] * Lipid Panel (08/28/2024 8:01 AM EST) Cholesterol, Total 145 0 - 199 mg/dL 08/28/2024 8:01 AM [facility] Comment: Cholesterol Guidelines: <200 Desirable 200-240 Borderline >240 Undesirable HDL 52 >40 mg/dL 08/28/2024 8:01 AM [facility] Comment: HDL Guidelines: <40 Undesirable 40-59 Borderline >59 Desirable LDL Cholesterol 74 0 - 100 mg/dL 08/28/2024 8:01 AM [facility] Comment: LDL Guidelines: <100 Desirable 100-129 Near to/above Desirable 130-159 Borderline >159 Undesirable Direct (measured) LDL and calculated LDL are not interchangeable tests. Chol/HDL Ratio 2.8 08/28/2024 8:01 AM EST [facility] Triglycerides 94 <150 mg/dL 08/28/2024 8:01 AM [facility] Comment: Triglyceride Guidelines: <150 Desirable 150-199 Borderline 200-499 High >499 Very high Based on AHA Guidelines for fasting triglyceride, March 2012. VLDL 19 1 - 30 mg/dL 08/28/2024 8:01 AM EST [facility] Blood BLOOD SPECIMEN / Unknown 08/28/2024 8:01 AM EST 08/28/2024 8:02 AM EST Reagan Pascal MD CHEMISTRY ORDERABLES Final Res ult [facility] [address] 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 ACP-Power of Accounting System Expert 03/01/2016 1:57 PM ACP-Advance Directive 03/01/2016 1:57 PM * Full Code (Latest Code Status on File) Date Activated Date Inactivated Comments 02/21/2015 1:32 PM 02/21/2015 5:10 PM * Full Code Date Activated Date Inactivated Comments 02/21/2015 12:11 PM 02/21/2015 1:32 PM * Full Code Date Activated Date Inactivated Comments 01/31/2015 10:04 AM 01/31/2015 12:51 PM * Full Code Date Activated Date Inactivated Comments 01/31/2015 8:49 AM 01/31/2015 10:04 AM * Full Code Date Activated Date Inactivated Comments 04/30/2012 8:28 AM 04/30/2012 3:52 PM Healthcare Agents on File Name Relationship Healthcare Agent Relationshi p Communication Adeel Ronny Spouse Primary Decision Maker [email or web address] Care Teams Lathing Supervisor Relationship Specialty Start Date End Date Rocio Dahl MD [address] [place] [address] PCP - General 07/15/12
--- OUTSIDE RECORDS SUMMARY | 2025-02-22 11:01 | XMS_ITS | Encounter Summary ---
Author Organization [facility] Address [address] [place] [address] Care Team Providers Care Chromium Plater Name Role Phone Rocio Dahl MD Primary Care Provider [phone] Encounter Details Date Type Department Care Team (Late st Contact Info) Description 08/10/2019 Legacy Encounter Summ Legacy Dept Provider, Legacy Conversion Social History Tobacco Use Types Packs/Day Years Used Date Smoking Tobacco: Never Assessed Comments Unknown Sex and Gender Information Value Date Recorded Sex Assigned at Female 04/19/2022 10:58 PM EDT Legal Sex Female 4:14 PM EDT Gender Identity Female 04/19/2022 10:58 PM EDT Sexual Orientation Straight 04/19/2022 10 :58 PM EDT documented as of this encounter Miscellaneous Notes * Telephone Encounter - Legacy Conversion Provider - 08/10/2019 8:45 AM EST Last OV: 07/27/2019 Last RX: 04/06/19 Next scheduled apt: 01/25/2020 EDT documented in this encounter Plan of Treatment Not on file documented as of this encounter Visit Diagnoses Not on filedocumented in this encounter Care Teams Chromium Plater Relationship Specialty Start Date End Date Rocio Dahl MD [address] [place] [address] PCP - General 03/08/17 documented as of this encounter
--- OUTSIDE RECORDS SUMMARY | 2025-02-22 11:01 | XMS_ITS | Encounter Summary ---
Author Organization [facility] Address [address] [place] [address] Care Team Providers Care Shipping Clerk Name Role Phone Rocio Dahl MD Primary Care Provider [phone] Reason for Visit * Reason Onset Date Comments Medication Refill 02/11/2020 Encounter Details Date Type Department Care Team (Late st Contact Info) Description 02/11/2020 Refill [facility]I [address] [place] [address] Rocio Dahl MD [address] [place] [address] Medication Refill Social History Tobacco Use Types Packs/Day Years Used Date Smoking Tobacco: Never Smokeless Tobacco: Never Alcohol Use Standard Drinks/Week Comments No 0 (1 standard drink = 0.6 oz pur e alcohol) occasional PHQ-2 Answer Date Recorded PHQ-2 Score 0 04/14/2019 Comments No Sex and Gender Information Value [...] Description 03/17/2025 9:00 AM EDT Office Visit [facility] Electrical Assembly Supervisor [address] [place] [phone] Reagan Pascal MD [address] [place] [address] 08/23/2025 9:00 AM EST Office Visit [facility] [address] [phone] Rocio Dahl MD [address] [place] [address] Return in about 6 months (around 08/20/2025) for HTN, Hyperlipidemia, gerd, dysthymia , Hypothyroid, ckd. 12/23/2025 8:30 AM EDT Office Visit [facility] UR[facility] Part of [address] [place] [phone] Yasmeen Thakkar, FEED CRUSHER OPERATOR - DRILL SHARPENER [address] [place] [address] [address] [place] [address] 1Y f/u documented as of this encounter Goals Goal Patient Goal Type Associated Problems Recent Progress Patient-Stated? Author get rid of UTI Lifestyle Marylin August documented as of this encounter Visit Diagnoses Diagnosis Dysthymic disorder documented in this encounter Additional Health Concerns Infection [...] COVID-19 06/24/2024 06/24/2024 07/08/2024 9:27 PM EST Assessment Noted Time A fall risk assessment has been complete d for the patient 04/14/2019 8:04 AM EDT documented as of this encounter Care Teams Shipping Clerk Relationship Specialty Start Date End Date Rocio Dahl MD [address] [place], [place] [phone] PCP - General 07/15/12 documented as of this encounter
--- OUTSIDE RECORDS SUMMARY | 2025-02-22 11:01 | XMS_ITS | Encounter Summary ---
Author Organization [facility] Address [address] [place] [address] Care Team Providers Care Lab Analyst Name Role Phone Rocio Dahl MD Primary Care Provider [phone] Encounter Details Date Type Department Care Team (Late st Contact Info) Description 01/23/2021 Legacy Encounter [facility] Legacy Dept Provider, Legacy Conversion Social History [...] Telephone Encounter - Legacy Conversion Provider - 01/23/2021 9:58 AM EDT Last OV: 11/30/2020 hematuria diarrhea Last RX: Next scheduled apt: 01/30/2021 Sure scripts request RX pending EDT documented in this encounter Plan of Treatment Not on file documented as of this encounter Visit Diagnoses Not on filedocumented in this encounter Care Teams Lab Analyst Relationship Specialty Start Date End Date Rocio Dahl MD [address] [place] [address] PCP - General 03/08/17 documented as of this encounter
--- OUTSIDE RECORDS SUMMARY | 2025-02-22 11:01 | XMS_ITS | Encounter Summary ---
Author Organization [facility] Address [address] [facility], [address] [place] [address] Care Team Providers Care Meter Readers Supervisor Name Role Phone Rocio Dahl MD Primary Care Provider [phone] Reason for Visit * Reason Comments Medication Refill Encounter Details Date Type Department Care Team (Late Contact Info) Description 06/07/2018 Refill [facility] PRIMARY CARE LOI [address] [place] [address] Rocio Dahl MD [address] [place] [address] Medication Refill Social History Tobacco Use Types [...] Upcoming Encounters Date Type Department Care Team ([facility] Contact Info) Description 03/17/2025 9:00 AM EDT Office Visit [facility] Pantry Steward/Stewardess [address] [place] [address] Reagan Pascal MD [address] [place] [address] 08/23/2025 9:00 AM EST Office Visit [facility] CARE LOI [address] [place] [address] Rocio Dahl MD [address] [place] [address] Return in about 6 months (around 08/20/2025) for HTN, Hyperlipidemia, gerd, dysthymia , Hypothyroid, ckd. 12/23/2025 8:30 AM EDT Office Visit [facility] UROLOGY Part of [address] [place] [address] Yasmeen Thakkar, MARINE CHRONOMETER ASSEMBLER - TAG STRINGER [address] [place] [address] [address] [place] [address] 1Y f/u documented as of this encounter [...] has been complete d for the patient 09/10/2017 4:25 PM EDT documented as of this encounter Care Teams Meter Readers Supervisor Relationship Specialty Start Date End Date Rocio Dahl MD [address] [place] [address] PCP - General 07/15/12 documented as of this encounter
--- OUTSIDE RECORDS SUMMARY | 2025-02-22 11:01 | XMS_ITS | Encounter Summary ---
Author Organization [facility] Address [address] [facility], [address] [place] [address] Care Team Providers Care Application Operations Engineer Name Role Phone Rocio Dahl MD Primary Care Provider [phone] Encounter Details Date Type Department Care Team (Late st Contact Info) Description 02/22/2015 Post-op Telephone [facility] General Surgery [address] [place] [address] Emi Lazo RN Social History Tobacco Use Types Packs/Day Years [...] 03/17/2025 9:00 AM EDT Office Visit [facility] [address] [place] [address] Reagan Pascal MD [address] [place] [address] 08/23/2025 9:00 AM EST Office Visit [facility] PRIMARY CARE LOI [address] [place] [address] Rocio Dahl MD [address] [place] [address] Return in about 6 months (around 08/20/2025) for HTN, Hyperlipidemia, gerd, dysthymia , Hypothyroid, ckd. 12/23/2025 8:30 AM EDT Office Visit [facility] UROLOGY Part of [address] [place] [address] Yasmeen Thakkar, MAGNETIC RESONANCE IMAGING DIRECTOR - PLASTIC PANEL INSTALLER [address]etri[address] [place] [address] 1Y f/u documented as of this encounter [...] has been complete d for the patient 02/16/2014 8:58 AM EDT documented as of this encounter Care Teams Application Operations Engineer Relationship Specialty Start Date End Date Rocio Dahl MD [address] [place] [address] PCP - General 07/15/12 documented as of this encounter
--- OUTSIDE RECORDS SUMMARY | 2025-02-22 11:01 | XMS_ITS | Encounter Summary ---
Author Organization [facility] Address [address] [facility], [address] [place] [address] Care Team Providers Care Supervisor Aircraft Maintenance Name Role Phone Rocio Dahl MD Primary Care Provider [phone] Reason for Visit * Reason Onset Date Comments Medication Refill 07/07/2013 Encounter Details Date Type Department Care Team (Late st Contact Info) Description 07/07/2013 Refill [facility] PRIMARY CARE LOI [address] [place] [address] Rocio Dahl MD [address] [place] [address] Medication Refill Social History Tobacco [...] 03/17/2025 9:00 AM EDT Office Visit [facility] [address] [place] [address] Reagan Pascal MD [address] [place] [address] 08/23/2025 9:00 AM EST [facility] [address] [place] [address] Rocio Dahl MD [address] [place] [address] Return in about 6 months (around 08/20/2025) for HTN, Hyperlipidemia, gerd, dysthymia , Hypothyroid, ckd. 12/23/2025 8:30 AM EDT Office Visit [facility] UROLOGY Part of [address] [place] [address] Yasmeen Thakkar, SCULPTURE INSTRUCTOR - CREW TEAM MEMBER [address] [place] [address] Dr [address]rius [address] [place] [phone] 1Y f/u documented as of this encounter [...] documented as of this encounter Care Teams Supervisor Aircraft Maintenance Relationship Specialty Start Date End Date Rocio Dahl MD [address] [place] [address] PCP - General 07/15/12 documented as of this encounter
--- OUTSIDE RECORDS SUMMARY | 2025-02-22 11:01 | XMS_ITS | Encounter Summary ---
Author Organization [facility] Address [address] [place] [address] Care Team Providers Care Medicaid Eligibility Specialist Name Role Phone Rocio Dahl MD Primary Care Provider [phone] Encounter Details Date Type Department Care Team (Late st Contact Info) Description 11/24/2019 Legacy Encounter [facility] Legacy Dept Provider, Legacy Conversion [...] Telephone Encounter - Legacy Conversion Provider - 11/24/2019 10:20 AM EDT Last OV: 09/15/2019 Last RX: 08/10/19 Next scheduled apt: 01/25/2020 Medication pending EDT documented in this encounter Plan of Treatment Not on file documented as of this encounter Visit Diagnoses Not on filedocumented in this encounter Care Teams Medicaid Eligibility Specialist Relationship Specialty Start Date End Date Rocio Dahl MD [address] [place] [address] PCP - General 9/8/17 documented as of this encounter
--- OUTSIDE RECORDS SUMMARY | 2025-02-22 11:01 | XMS_ITS | Encounter Summary ---
Author Organization [facility] Address [address] [facility], [address] [place] [address] Care Team Providers Care Corncob Pipe Manufacturing Supervisor Name Role Phone Rocio Dahl MD Primary Care Provider [phone] Reason for Visit * Reason Onset Date Comments Medication Refill 05/11/2021 Encounter Details Date Type Department Care Team (Late st Contact Info) Description 05/11/2021 Refill [facility] PRIMARY CARE LOI [address] [place] [address] Rocio Dahl MD [address] [place] [address] Medication Refill Social History Tobacco Use Types Packs/Day Years Used Date Smoking Tobacco: Never Smokeless Tobacco: Never Alcohol Use Standard Drinks/Week Comments No 0 (1 standard drink = 0.6 oz pur e alcohol) occasional Overall Financial Resource Strain (CARDIA) Answe r Date Recorded How hard is it for you to pa y for the very basics like food, housing, medical care, and heating? Not hard at all 11/22/2020 PHQ-2 Answer Date Recorded PHQ-9 Total Score 1 05/02/2021 Hunger Vital Sign Answer Date Recorded Within the past 12 months, y ou worried that your food would run out before you got the money to buy more. Never true 11/23/19 21 Within the past 12 months, t he food you bought just didn't last and you didn't have money to get more. Never true 11/22/2020 Comments No Sex and Gender Information Value [...] Description 03/17/2025 9:00 AM EDT Office Visit [facility] Make Up Editor [address] [place] [phone] Reagan Pascal MD [address] [place] [address] 08/23/2025 9:00 AM EST Office Visit [facility] [place] [address] [place] [address] Rocio Dahl MD [address] [place] [address] Return in about 6 months (around 08/20/2025) for HTN, Hyperlipidemia, gerd, dysthymia , Hypothyroid, ckd. 12/23/2025 8:30 AM EDT Office Visit [facility] UROLOGY Part of [address] [place] [address] Yasmeen Thakkar, TENONER OPERATOR - DROP CLIPPER [address] [place] [address] [address] [place] [address] 1Y f/u documented as of this encounter Goals Goal Patient Goal Type Associated Problems Recent Progress Patient-Stated? Author get rid of UTI Lifestyle Marylin August documented as of this encounter Visit Diagnoses Diagnosis Dysthymic disorder documented in this encounter Additional Health Concerns Infection Onset Date Last Indicated Resolved Time COVID-19 (Rule Out) 06/12/2021 06/12/2021 06/13/20 10:47 AM EST COVID-19 (Rule Out) 11/17/2022 11/17/2022 11/18/19 11:56 AM EDT COVID-19 (Rule Out) 07/01/2023 07/01/2023 07/01/19 24 4:10 PM EST COVID-19 07/01/2023 07/01/2023 07/15/2023 9:27 PM EST COVID-19 (Rule Out) 06/24/2024 06/24/2024 06/24/20 5:56 PM EST COVID-19 06/24/2024 06/24/2024 07/08/2024 9:27 PM EST Assessment Noted Time A fall risk assessment has been complete d for the patient 05/02/2021 8:47 AM EDT documented as of this encounter Care Teams Corncob Pipe Manufacturing Supervisor Relationship Specialty Start Date End Date Rocio Dahl MD [address] [place] [phone] PCP - General 07/15/12 documented as of this encounter
--- OUTSIDE RECORDS SUMMARY | 2025-02-22 11:01 | XMS_ITS | Encounter Summary ---
Author Organization [facility] Address [address] [facility], [address] [place] [address] Care Team Providers Care Paint Roller Covermaker Name Role Phone Rocio Dahl MD Primary Care Provider [phone] Reason for Visit * Reason Onset Date Comments Medication Refill 01/01/2021 Encounter Details Date Type Department Care Team (Late st Contact Info) Description 01/01/2021 Refill [facility] PRIMARY CARE LOI [address] [place] [address] Rocio Dahl MD [address] [place] [address] Medication Refill Social History Tobacco [...] PHQ-2 Answer Date Recorded PHQ-9 Total Score 2 04/20/2020 Hunger Vital Sign Answer Date Recorded Within [...] Description 03/17/2025 9:00 AM EDT Office Visit [facility] Museum Tour Guide [address] [place] [phone] Reagan Pascal MD [address] [place] [address] 08/23/2025 9:00 AM EST Office Visit [facility] PRIMARY CARE [place] [address] [place] [address] Rocio Dahl MD [address] [place] [address] Return in about 6 months (around 08/20/2025) for HTN, Hyperlipidemia, gerd, dysthymia , Hypothyroid, ckd. 12/23/2025 8:30 AM EDT Office Visit [facility] UROLOGY Part of [address] [place] [address] Yasmeen Thakkar, SHIP'S ELECTRONIC WARFARE OFFICER - MAKEUP INSTRUCTOR [address] [place] [address] [address] [place] [address] 1Y f/u documented as of this encounter [...] has been complete d for the patient 04/20/2020 8:02 AM EDT documented as of this encounter Care Teams Paint Roller Covermaker Relationship Specialty Start Date End Date Rocio Dahl MD [address] [place] [phone] PCP - General 07/15/12 documented as of this encounter
--- OUTSIDE RECORDS SUMMARY | 2025-02-22 11:01 | XMS_ITS | Encounter Summary ---
Author Organization [facility] Address [address] [facility] [place] [address] Care Team Providers Care Thread Twister Name Role Phone Rocio Dahl MD Primary Care Provider [phone] Encounter Details Date Type Department Care Team (Late st Contact Info) Description 02/03/2023 Abstract [facility] [place] [facility] [address] [facility] [place] [address] [place] [phone] Sania Dietz NP [address] [place] [address] Social History Tobacco Use Types Packs/Day Years [...] on filedocumented in this encounter Care Teams Thread Twister Relationship Specialty Start Date End Date Rocio Dahl MD [address] [place] [address] PCP - General Family Medicine 08/17/24 documented as of this encounter
--- OUTSIDE RECORDS SUMMARY | 2025-02-22 11:01 | XMS_ITS | Encounter Summary ---
Author Organization [facility] Address [address] [place] [address] Care Team Providers Care Food Service Steward Name Role Phone Rocio Dahl MD Primary Care Provider [phone] Encounter Details Date Type Department Care Team (Late st Contact Info) Description 02/11/2018 Scanned Document [facility] Legacy Dept Provider, Legacy Conversion Social [...] on filedocumented in this encounter Care Teams Food Service Steward Relationship Specialty Start Date End Date Rocio Dahl MD [address] [place], [place] [phone] PCP - General 03/08/17 documented as of this encounter
--- OUTSIDE RECORDS SUMMARY | 2025-02-22 11:01 | XMS_ITS | Clinical Summary ---
Author Organization [facility] Address [address] [place] [address] Care Team Providers Care Motor Electrician Name Role Phone Rocio Dahl MD Primary Care Provider Allergies Active Allergy Reactions Criticality Noted Date [...] take two tablet daily 0 7 Active lansoprazole(SD EVACID 15 MG CAP) take one tablet [...] N ot on file 06/06/2020 Data from: https://www.neighborhoodatlas.medicine.[facility].edu/. Last address used for calculation Not [...] MEDICARE NEW ERA LIFE SUPPLEMENT Care Teams Motor Electrician Relationship Specialty Start Date End Date Rocio Dahl MD PCP - General 05/05/07
--- OUTSIDE RECORDS SUMMARY | 2025-02-22 11:01 | XMS_ITS | Encounter Summary ---
Author Organization [facility] Address [address] [place] [address] Care Team Providers Care Piggyback Clerk Name Role Phone Rocio Dahl MD Primary Care Provider [phone] Encounter Details Date Type Department Care Team (Late st Contact Info) Description 02/11/2020 Legacy Encounter [facility] Legacy Dept Provider, Legacy Conversion Social [...] Telephone Encounter - Legacy Conversion Provider - 02/11/2020 3:28 PM EDT Last OV 01/25/20 for checkup Requesting alprazolam thru my chart EDT documented in this encounter Plan of Treatment Not on file documented as of this encounter Visit Diagnoses Not on filedocumented in this encounter Care Teams Piggyback Clerk Relationship Specialty Start Date End Date Rocio Dahl MD [address] [place] [address] PCP - General 03/08/17 documented as of this encounter
--- OUTSIDE RECORDS SUMMARY | 2025-02-22 11:01 | XMS_ITS | Encounter Summary ---
Author Organization [facility] Address [address] [place] [address] Care Team Providers Care Truck Car And Bus Cleaner Name Role Phone Rocio Dahl MD Primary Care Provider [phone] Encounter Details Date Type Department Care Team (Late st Contact Info) Description 07/12/2020 Legacy Encounter [facility] Legacy Dept Provider, Legacy Conversion Social [...] Telephone Encounter - Legacy Conversion Provider - 07/12/2020 7:10 AM EST Requesting refill on pravastatin and nexium thru my chart Next OV 07/28/20 EDT documented in this encounter Plan of Treatment Not on file documented as of this encounter Visit Diagnoses Not on filedocumented in this encounter Care Teams Truck Car And Bus Cleaner Relationship Specialty Start Date End Date Rocio Dahl MD [address] [place], [place] [phone] PCP - General 03/08/17 documented as of this encounter
--- OUTSIDE RECORDS SUMMARY | 2025-02-22 11:01 | XMS_ITS | Encounter Summary ---
Author Organization [facility] Address [address] [place] [address] Care Team Providers Care Director Business Travel Name Role Phone Rocio Dahl MD Primary Care Provider [phone] Encounter Details Date Type Department Care Team (Late st Contact Info) Description 03/29/2022 Legacy Encounter [facility] Legacy Dept Provider, Legacy Conversion Social History [...] Telephone Encounter - Legacy Conversion Provider - 03/29/2022 3:37 PM EDT Last OV: 10/17/2021 UTI, yeast infection, SA Last RX: Next scheduled apt: 05/03/2022 AWV Pt requesting a refill documented in this encounter Plan of Treatment Not on file documented as of this encounter Visit Diagnoses Not on filedocumented in this encounter Care Teams Director Business Travel Relationship Specialty Start Date End Date Rocio Dahl MD [address] [place], [place] [phone] PCP - General 03/08/17 documented as of this encounter
--- OUTSIDE RECORDS SUMMARY | 2025-02-22 11:01 | XMS_ITS | Encounter Summary ---
Author Organization [facility] Address [address] [place] [address] Care Team Providers Care Laborer Chicken Farm Name Role Phone Rocio Dahl MD Primary Care Provider [phone] Encounter Details Date Type Department Care Team (Late st Contact Info) Description 07/11/2020 Legacy Encounter [facility] Legacy Dept Provider, Legacy Conversion Social [...] Telephone Encounter - Legacy Conversion Provider - 07/11/2020 7:41 AM EST Last OV: 04/20/2020 Medicare wellness exam Next scheduled apt: 07/28/2020 Sure scripts request Rx pending. EDT documented in this encounter Plan of Treatment Not on file documented as of this encounter Visit Diagnoses Not on filedocumented in this encounter Care Teams Laborer Chicken Farm Relationship Specialty Start Date End Date Rocio Dahl MD [address] [place] [address] PCP - General 9/8/17 documented as of this encounter
--- OUTSIDE RECORDS SUMMARY | 2025-02-22 11:01 | XMS_ITS | Encounter Summary ---
Author Organization [facility] Address [address] [place] [address] Care Team Providers Care Director Regulatory Affairs Name Role Phone Rocio Dahl MD Primary Care Provider Encounter Details Date Type Department Care Team (Late st Contact Info) Description 05/15/2021 Legacy Encounter [facility] Legacy Dept Provider, Legacy Conversion Social History [...] Telephone Encounter - Legacy Conversion Provider - 05/15/2021 9:41 AM EST protonix 20 mg Mail order to [facility] Mary Jane has been trying to get this filled by Dr. Hernandez and they have not gotten back with her yet.She is wanting to know if Dr. Dahl will just fill this for her because she is going on a trip. Health Maintenance Topic Date Due ??? Hepatitis C screen Never done ??? DTaP/Tdap/Td vaccine (1 - Tdap) 12/31/2013 ??? COVID-19 Vaccine (3 - Booster for Moderna series) 02/23/2021 ??? Lipid screen 08/11/2021 ??? TSH testing 08/11/2021 ??? Annual Wellness Visit (AWV) 05/03/2022 ??? DEXA (modify frequency per FRAX score) Completed ??? Flu vaccine Completed ??? Shingles Vaccine Completed ??? Pneumococcal 65+ years Vaccine Completed ??? Hepatitis A vaccine Aged Out ??? Hepatitis B vaccine Aged Out ??? Hib vaccine Aged Out ??? Meningococcal (ACWY) vaccine Aged Out (applicable per patient's age: Cancer Screenings, Depression Screening, Fall Risk Screening, Immunizations) Hemoglobin A1C (%) Date Value 01/29/2019 5.3 01/29/2014 5.3 LDL Cholesterol (mg/dL) Date Value 08/11/2020 62 AST (U/L) Date Value 11/27/2020 44 (H) ALT (U/L) Date Value 11/27/2020 45 (H) BUN (mg/dL) Date Value 11/27/2020 16 (goal A1C is < 7) (goal LDL is <100) need 30-50% reduction from baseline BP Readings from Last 3 Encounters: 05/02/21 118/68 02/22/21 117/68 01/30/21 136/76 (goal BP 120/80) All Future Testing planned in [facility]: Lab Frequency Next Occurrence TSH with Reflex Once 09/06/2021 CBC Auto Differential Once 09/06/2021 Comprehensive Metabolic Panel Once 09/06/2021 Vitamin D 25 Hydroxy Once 09/06/2021 Lipid Panel Once 09/06/2021 Magnesium Once 09/06/2021 EKG 12 Lead Once 09/06/2021 XR CHEST (2 VW) Once 09/06/2021 Potassium Once 11/22/2021 Next Visit Date: Future Appointments Date Time Provider Department Center 05/17/2021 9:00 AM Velasquez Martel PTA [facility] 08/02/2021 9:40 AM MD [address] 09/04/2021 9:30 AM MD Tani [facility] Patient Active Problem List: Hyperlipidemia Migraine Hypothyroidism Diverticulitis Dysthymic disorder Sinusitis, chronic Irritable bowel syndrome Palpitations Diaphragmatic hernia History of benign neoplasm of stomach Hypertension Gastritis Sleep apnea GERD (gastroesophageal reflux disease) Cortical senile cataract Vitamin D deficiency disease Morbidly obese (HCC) Diverticulosis Tubular adenoma of colon EDT documented in this encounter Plan of Treatment Not on file documented as of this encounter Visit Diagnoses Not on filedocumented in this encounter Care Teams Director Regulatory Affairs Relationship Specialty Start Date End Date Rocio Dahl MD [address] [place] [address] PCP - General 03/08/17 documented as of this encounter
--- OUTSIDE RECORDS SUMMARY | 2025-02-22 11:01 | XMS_ITS | Encounter Summary ---
Author Organization [facility] Address [address] [place] [address] Care Team Providers Care Beet End Supervisor Name Role Phone Rocio Dahl MD Primary Care Provider Encounter Details Date Type Department Care Team (Late st Contact Info) Description 03/29/2022 Legacy Encounter [facility] Legacy Dept Provider, Legacy Conversion Social History [...] Encounter - Legacy Conversion Provider - 03/29/2022 2:48 PM EDT ----- Message from Janee Juárez sent at 03/29/2022 2:05 PM EDT ----- Subject: Refill Request QUESTIONS Name of Medication? fluticasone (FLONASE) 50 MCG/ACT nasal spray Patient-reported dosage and instructions? 50 mcg twice a day How many days do you have left? 5 Preferred Pharmacy? [facility] Pharmacy phone number (if available)? [phone] Additional Information for Provider? patient states the pharmacy has received any response from your office CALL BACK INFO What is the best way for the office to contact you? OK to leave message on voicemail Preferred Call Back Phone Number? [phone] SCRIPT ANSWERS Relationship to Patient? Self EDT documented in this encounter Plan of Treatment Not on file documented as of this encounter Visit Diagnoses Not on filedocumented in this encounter Care Teams Beet End Supervisor Relationship Specialty Start Date End Date Rocio Dahl MD [address] [place] [address] PCP - General 03/08/17 documented as of this encounter
--- OUTSIDE RECORDS SUMMARY | 2025-02-22 11:01 | XMS_ITS | Encounter Summary ---
Author Organization [facility] Address [address] [facility], [address] [place] [address] Care Team Providers Care Bar Attendant Name Role Phone Rocio Dahl MD Primary Care Provider [phone] Reason for Visit * Reason Onset Date Comments Medication Refill 09/10/2021 Encounter Details Date Type Department Care Team (Late st Contact Info) Description 09/10/2021 Refill [facility] Walk-in Care [address] [place] [address] Romy Rogers, ARCHERY EQUIPMENT REPAIRER - COAT CHECKER [address] [address] Medication Refill Social History Tobacco Use Types [...] Description 03/17/2025 9:00 AM EDT Office Visit [facility] Warehouse Selector [address] [place] [phone] Reagan Pascal MD [address] [place] [address] 08/23/2025 9:00 AM EST Office Visit [facility] [place] [address] [place] [address] Rocio Dahl MD [address] [place] [address] Return in about 6 months (around 08/20/2025) for HTN, Hyperlipidemia, gerd, dysthymia , Hypothyroid, ckd. 12/23/2025 8:30 AM EDT Office Visit [facility] Part of [address] [place] [address] Yasmeen Thakkar, ARCHERY EQUIPMENT REPAIRER - COAT CHECKER [address] [place] [address] Dem[address]us [address] [place] [address] 1Y f/u documented as of this encounter Goals Goal Patient Goal Type Associated Problems Recent Progress Patient-Stated? Author get rid of UTI Lifestyle Marylin August documented as of this encounter Visit Diagnoses Diagnosis Acute pansinusitis, recurrence not specified documented in this encounter Additional Health Concerns Infection Onset Date Last Indicated Resolved Time COVID-19 (Rule Out) 11/17/2022 11/17/2022 05/20/20 23 11:56 AM EDT COVID-19 (Rule Out) 07/01/2023 07/01/2023 07/01/19 24 4:10 PM EST COVID-19 07/01/2023 07/01/2023 07/15/2023 9:27 PM EST COVID-19 (Rule Out) 06/24/2024 06/24/2024 06/24/20 5:56 PM EST COVID-19 06/24/2024 06/24/2024 07/08/2024 9:27 PM EST Assessment Noted Time A fall risk assessment has been complete d for the patient 05/02/2021 8:47 AM EDT documented as of this encounter Care Teams Bar Attendant Relationship Specialty Start Date End Date Rocio Dahl MD [address] [place], [place] [phone] PCP - General 07/15/12 documented as of this encounter
--- OUTSIDE RECORDS SUMMARY | 2025-02-22 11:01 | XMS_ITS | Encounter Summary ---
Author Organization [facility] Address [address] [facility], [address] [place] [address] Care Team Providers Care Warehouse Technician Name Role Phone Rocio Dahl MD Primary Care Provider [phone] Reason for Visit * Reason Onset Date Comments Medication Refill 11/23/2019 Encounter Details Date Type Department Care Team (Late st Contact Info) Description 11/23/2019 Refill [facility] [address] [place] [address] Rocio Dahl MD [address] [place] [address] Medication Refill Social History Tobacco [...] Description 03/17/2025 9:00 AM EDT Office Visit [facility] Hanger [address] [place] [address] Reagan Pascal MD [address] [place] [address] 08/23/2025 9:00 AM EST Office Visit [facility] PRIMARY CARE [address] [phone] Rocio Dahl MD [address] [place] [address] Return in about 6 months (around 08/20/2025) for HTN, Hyperlipidemia, gerd, dysthymia , Hypothyroid, ckd. 12/23/2025 8:30 AM EDT Office Visit [facility] UR[facility] Part of [address] [place] [address] Yasmeen Thakkar, WORKFLOW DEVELOPER - LAUNDRY ATTENDANT [address] [place] [address] Dr Demetrius [address] [place] [address] 1Y f/u documented as of this encounter [...] 4:10 PM EST COVID-19 07/01/2023 07/01/2023 07/15/2023 9:2 7 PM EST COVID-19 (Rule Out) 06/24/2024 06/24/2024 06/24/20 24 5:56 PM EST COVID-19 06/24/2024 06/24/2024 07/08/2024 9:27 PM EST Assessment Noted Time A fall risk assessment has been complete d for the patient 04/14/2019 8:04 AM EDT documented as of this encounter Care Teams Warehouse Technician Relationship Specialty Start Date End Date Rocio Dahl MD [address] [place], [place] [phone] PCP - General 07/15/12 documented as of this encounter
--- OUTSIDE RECORDS SUMMARY | 2025-02-22 11:01 | XMS_ITS | Encounter Summary ---
Author Organization [facility] Address [address] [facility], [address] [place] [address] Care Team Providers Care Frame Maker Name Role Phone Rocio Dahl MD Primary Care Provider Encounter Details Date Type Department Care Team (Late st Contact Info) Description 04/03/2021 Abstract [facility] [address] [place] [address] Rocio Dahl MD [address] [place] [phone] Social History Tobacco Use Types Packs/Day Years [...] Description 03/17/2025 9:00 AM EDT Office Visit [facility] Director Of Spa And Guest Experience [address] [place] [address] Reagan Pascal MD [address] [place] [address] 08/23/2025 9:00 AM EST Office Visit [facility] PRIMARY [facility]ARE [place] [address] [place] [address] Rocio Dahl MD [address] [place] [phone] Return in about 6 months (around 08/20/2025) for HTN, Hyperlipidemia, gerd, dysthymia , Hypothyroid, ckd. 12/23/2025 8:30 AM EDT Office Visit [facility] Part of [address] [place] [address] Yasmeen Thakkar, TISSUE REWINDER - DRY MILL OPERATOR [address] [place] [address] Dr Demetrius [address] [place] [address] 1Y f/u documented as of this encounter Goals Goal Patient Goal Type Associated Problems Recent Progress Patient-Stated? Author get rid of UTI Lifestyle No Marylin Bonilla documented as of this encounter Visit Diagnoses Not on filedocumented in this encounter Additional Health Concerns Infection Onset Date Last Indicated Resolved Time COVID-19 (Rule Out) 06/12/2021 06/12/2021 06/13/20 10:47 AM EST COVID-19 (Rule Out) 11/17/2022 11/17/202220 23 11:56 AM EDT COVID-19 (Rule Out) 07/01/2023 07/01/2023 07/01/19 24 4:10 PM EST COVID-19 07/01/2023 07/01/2023 07/15/2023 9:27 PM EST COVID-19 (Rule Out) 06/24/2024 06/24/2024 06/24/20 24 5:56 PM EST COVID-19 06/24/2024 06/24/2024 07/08/2024 9:27 PM EST Assessment Noted Time A fall risk assessment has been complete d for the patient 04/20/2020 8:02 AM EDT documented as of this encounter Care Teams Frame Maker Relationship Specialty Start Date End Date Rocio Dahl MD [address] [place] [address] PCP - General 07/15/12 documented as of this encounter
--- OUTSIDE RECORDS SUMMARY | 2025-02-22 11:01 | XMS_ITS | Encounter Summary ---
Author Organization [facility] Address [address] [place] [address] Care Team Providers Care Picture Hanger Name Role Phone oRcio Dahl MD Primary Care Provider [phone] Encounter Details Date Type Department Care Team (Late st Contact Info) Description 11/25/2018 Scanned Document [facility] Legacy Dept Provider, Legacy Conversion Social History [...] on filedocumented in this encounter Care Teams Picture Hanger Relationship Specialty Start Date End Date Rocio Dahl MD [address] [place], [place] [phone] PCP - General 03/08/17 documented as of this encounter
--- OUTSIDE RECORDS SUMMARY | 2025-02-22 11:01 | XMS_ITS | Encounter Summary ---
Author Organization [employer] Address [address] [place] [address] Care Team Providers Care Circular Saw Filer Name Role Phone Rocio Dahl MD Primary Care Provider [phone] Encounter Details Date Type Department Care Team (Late st Contact Info) Description 06/02/2021 Legacy Encounter [facility] Legacy Dept Provider, Legacy Conversion Social [...] Telephone Encounter - Legacy Conversion Provider - 06/02/2021 1:04 PM EST Famotidine 20 mg Mail order to [facility] She said ever since her colonoscopy she has had stomach problems. Wanted to know if we can call this in to her mail order. Health Maintenance Topic Date Due ??? Hepatitis [...] Future Appointments Date Time Provider Department Center 06/05/2021 9:00 AM Rashmi Garcia [facility] 06/07/2021 9:00 AM Zo Maki PT [facility] 08/02/2021 9:40 AM MD TANI Valdez [facility] 09/04/2021 9:30 AM MD [facility] Patient Active Problem List: Hyperlipidemia Migraine Hypothyroidism [...] on filedocumented in this encounter Care Teams Circular Saw Filer Relationship Specialty Start Date End Date Rocio Dahl MD [address] [place] [address] PCP - General 03/08/17 documented as of this encounter
--- OUTSIDE RECORDS SUMMARY | 2025-02-22 11:01 | XMS_ITS | Clinical Summary ---
Author Organization [employer] Address [address] [place] [address] Care Team Providers Care Shingles Roofer Name Role Phone Rocio Dahl MD Primary Care Provider [phone] Active Problems Problem Noted Date Diagnosed Date Localized, primary osteoarthritis of shoulder re gion 02/09/2022 Primary generalized (osteo)arthritis 02/09/2022 Chronic renal disease, stage III 10/26/2021 Gastritis 03/03/2021 Tubular adenoma of colon 03/03/2021 Diverticulosis 03/03/2021 History of benign neoplasm of stomach 08/08/2020 Morbidly obese 01/25/2020 Vitamin D deficiency disease 07/21/2018 Diaphragmatic hernia 03/31/2015 Sinusitis, chronic 03/31/2015 Cortical senile cataract 01/31/2015 GERD (gastroesophageal reflux disease) 3 Sleep apnea 08/21/2012 Hypertension 06/08/2011 Palpitations 04/24/2011 Irritable bowel syndrome 04/24/2011 Dysthymic disorder 04/24/2011 Hypothyroidism 02/08/2011 Diverticulitis 02/08/2011 Hyperlipidemia 02/08/2011 Migraine 02/08/2011 Immunizations Immunization Administration Dates Next Due Influenza, High Dose Seasona l, Preservative Free 05/14/2016 Influenza, High-dose Seasona l, Quadrivalent, Preservative Free 03/15/2020 Influenza, Seasonal, Quadriv alent, Adjuvanted 05/02/2021 Influenza, Unspecified 04/10/2017,2014,04/24/2014,07/17 Influenza, injectable, quadr ivalent, preservative free 03/15/2020,04/14/2019,04/07/2018 Moderna SARS-CoV-2 Vaccination 06/27/2021 Pneumococcal Conjugate PCV 13 03/01/2016 Pneumococcal Polysaccharide PPSV23 03/31/2011 Zoster, Recombinant 05/12/2020,03/15/2020 Zoster, live 10/24/2011 Family History Medical History Relation Name Comments [id number] Father age 23 accident Diabetes Mother age 73 Heart disease Mother age 73 [id number] Sister scleroderma Relation Name Status Comments Father age 23 Mother age 73 Sister Social History Tobacco [...] Orientation Straight 04/19/2022 10 :58 PM EDT Last Filed Vital Signs Vital Sign Reading Time Taken Comments Blood Pressure 139/86 04/16/2022 9:23 AM EDT Pulse 64 04/16/2022 9:23 AM EDT Temperature 36.7 C (98 F) 04/16/2022 9:23 AM EDT Respiratory Rate 18 04/16/2022 9:23 AM EDT Oxygen Saturation 99% 04/16/2022 9:23 AM EDT Inhaled Oxygen Concentration - - Weight 101 kg (222 lb) 04/16/2022 9:23 AM EDT Height 165.1 cm (5' 5 ) 04/16/2022 9:23 AM EDT Body Mass Index 36.94 04/16/2022 9:23 AM EDT Plan of Treatment Health Maintenance Due Date Last Done Comments Bone Density Scan 1944 TSH Level 1944 Depression Monitoring 1956 DTaP/Tdap/Td Vaccines (1 - Tdap) 12/19/1963 RSV Immunization for Adults (1 - 1-dose 75+ series) 12/19/2019 COVID-19 Vaccine (2 - season) 2024 06/27/2021 Influenza Vaccine (#1) 2025 , 03/15/2020, 03/15/2020, Additional history exists Lipid Panel 08/29/2026 08/29/2021, 08/01, 07/07/2019 Pneumococcal Vaccine: 50+ Years Completed 03/01/2016, 03/31/2011 Zoster Vaccines Completed 05/12/2020, 03/01, 10/24/2011 HIB Vaccines Aged Out No longer eligi ble based on patient's age to complete this topic HPV Vaccines Aged Out No longer eligi ble based on patient's age to complete this topic Hepatitis A Vaccines Aged Out No long er eligible based on patient's age to complete this topic Hepatitis B Vaccines Aged Out No long er eligible based on patient's age to complete this topic IPV Vaccines Aged Out No longer eligi ble based on patient's age to complete this topic Meningococcal B Vaccine Aged Out No l onger eligible based on patient's age to complete this topic Meningococcal Vaccine Aged Out No trevor heriberto eligible based on patient's age to complete this topic RSV Immunization under 20 Months Aged Out No longer eligible based on patient's age to complete this topic Rotavirus Vaccines Aged Out No longer eligible based on patient's age to complete this topic Procedures Procedure Name Priority Date/Time Associated Diagnosis Comments LIPID PANEL Routine 08/29/2021 7:31 AM EST from Last 3 Months or Most Recently Relevant to Health Maintenance Results * Lipid panel (08/29/2021 7:31 AM EST) CHOLESTEROL 128 <200 mg/dL 08/29/2021 7:31 AM [facility] Comment: Cholesterol Guidelines: <200 Desirable 200-240 Borderline >240 Undesirable HDL CHOLESTEROL 45 >40 mg/dL 7:31 AM EST [facility] Comment: HDL Guidelines: <40 Undesirable 40-59 Borderline >59 Desirable LDL Cholesterol 60 0 - 130 mg/dL 08/29/2021 7:31 AM [facility] [employer] Comment: LDL Guidelines: <100 Desirable 100-129 Near to/above Desirable 130-159 Borderline >159 Undesirable Direct (measured) LDL and calculated LDL are not interchangeable tests. CHOL/HDL 2.8 <5 08/29/2021 7:31 AM [facility] Comment: TRIGLYCERIDE 114 <150 mg/dL 08/29/2021 7:31 AM EST [facility] Comment: Triglyceride Guidelines: <150 Desirable 150-199 Borderline 200-499 High >499 Very high Based on AHA Guidelines for fasting triglyceride, March 2012. 08/29/2021 7:31 AM EST 08/29/2021 7:32 AM EST us Legacy Conversion Provider LAB BLOOD ORDERABLES Final Result [facility] [place] [address], [facility] [address] [place] [address] from Last 3 Months or Most Recently Relevant to Health Maintenance Care Teams Shingles Roofer Relationship Specialty Start Date End Date Rocio Dahl MD [address] [place], [place] [phone] PCP - General 03/08/17
--- OUTSIDE RECORDS SUMMARY | 2025-02-22 11:01 | XMS_ITS | Encounter Summary ---
Author Organization [email or web address] Address [address] [place] [address] Care Team Providers Care Rn Corrections Name Role Phone Rocio Dahl MD Primary Care Provider [phone] Encounter Details Date Type Department Care Team (Late st Contact Info) Description 01/03/2021 Legacy Encounter [facility] Legacy Dept Provider, Legacy Conversion [...] Telephone Encounter - Legacy Conversion Provider - 01/03/2021 1:37 PM EDT Last OV: 11/30/2020 Diarrhea Last RX: Next scheduled apt: 01/30/2021 Sure scripts request RX pending EDT documented in this encounter Plan of Treatment Not on file documented as of this encounter Visit Diagnoses Not on filedocumented in this encounter Care Teams Rn Corrections Relationship Specialty Start Date End Date Rocio Dahl MD [address] [place] [address] PCP - General 03/08/17 documented as of this encounter
--- OUTSIDE RECORDS SUMMARY | 2025-02-22 11:01 | XMS_ITS | Encounter Summary ---
Author Organization [facility] Address [address] [facility], [address] [place] [address] Care Team Providers Care Sales Development Associate Name Role Phone Rocio Dahl MD Primary Care Provider [phone] Reason for Visit * Reason Comments Medication Refill Encounter Details Date Type Department Care Team (Late Contact Info) Description 02/25/2018 Refill [facility] [address] [place] [address] Rocio Dahl MD [address] [place] [address] Medication Refill Social History Tobacco Use Types [...] Upcoming Encounters Date Type Department Care Team ([facility] Contact Info) Description 03/17/2025 9:00 AM EDT Office Visit [facility] Fabricator Assembler Metal Products [address] [place] [address] Reagan Pascal MD [address] [place] [address] 08/23/2025 9:00 AM EST Office Visit [facility] C[facility] [address] [place] [address] Rocio Dahl MD [address] [place] [address] Return in about 6 months (around 08/20/2025) for HTN, Hyperlipidemia, gerd, dysthymia , Hypothyroid, ckd. 12/23/2025 8:30 AM EDT Office Visit [facility] Part of [address] [place] [address] Yasmeen Thakkar, BISCUIT PACKER - CARDIOTHORACIC PHYSIOTHERAPIST [address] [place] [address] Demetrius [address] [place] [address] 1Y f/u documented as of this encounter [...] documented as of this encounter Care Teams Sales Development Associate Relationship Specialty Start Date End Date Rocio Dahl MD [address] [place] [address] PCP - General 07/15/12 documented as of this encounter
--- OUTSIDE RECORDS SUMMARY | 2025-02-22 11:01 | XMS_ITS | Encounter Summary ---
Author Organization [employer] Address [address] [place] [address] Care Team Providers Care Supply Service Worker Name Role Phone Rocio Dahl MD Primary Care Provider [phone] Encounter Details Date Type Department Care Team (Late st Contact Info) Description 01/10/2022 Legacy Encounter [facility] Legacy Dept Provider, Legacy [...] Telephone Encounter - Legacy Conversion Provider - 01/10/2022 8:45 AM EDT Last OV: 10/17/2021 UTI 05/02/21 AWV Last RX: Next scheduled apt: 05/03/2022 AWV surescript requesting a refill EDT documented in this encounter Plan of Treatment Not on file documented as of this encounter Visit Diagnoses Not on filedocumented in this encounter Care Teams Supply Service Worker Relationship Specialty Start Date End Date Rocio Dahl MD [address] [place] [address] PCP - General 03/08/17 documented as of this encounter
--- OUTSIDE RECORDS SUMMARY | 2025-02-22 11:01 | XMS_ITS | Encounter Summary ---
Author Organization [facility] Address [address] [facility], [address] [place] [address] Care Team Providers Care Channel Installer Name Role Phone Rocio Dahl MD Primary Care Provider [phone] Encounter Details Date Type Department Care Team (Late st Contact Info) Description 03/02/2021 Abstract [facility] [address] [place] [address] Rocio Dahl MD [address] [place] [phone] Social History Tobacco Use Types Packs/Day Years [...] Description 03/17/2025 9:00 AM EDT Office Visit [facility] Wire Stitcher Operator [address] [place] [address] Reagan Pascal MD [address] [place] [address] 08/23/2025 9:00 AM EST Office Visit [facility]IMARY [facility] [place] [address] [place] [address] Rocio Dahl MD [address] [place] [phone] Return in about 6 months (around 08/20/2025) for HTN, Hyperlipidemia, gerd, dysthymia , Hypothyroid, ckd. 12/23/2025 8:30 AM EDT Office Visit [facility] Part of [address] [place] [address] Yasmeen Thakkar, SPECIFICATIONS CHECKER - RETAIL SALES MERCHANDISER DEVELOPMENT [address] [place] [address] Dr Demetrius [address] [place] [address] 1Y f/u documented as of this encounter [...] documented as of this encounter Care Teams Channel Installer Relationship Specialty Start Date End Date Rocio Dahl MD [address] [place] [address] PCP - General 07/15/12 documented as of this encounter
--- OUTSIDE RECORDS SUMMARY | 2025-02-22 11:01 | XMS_ITS | Clinical Summary ---
Author Organization [facility] Address [address] [place] [address] Care Team Providers Care Rubber Factory Worker Name Role Phone Rocio Dahl MD Primary Care Provider [phone] Allergies Active Allergy Reactions Criticality Noted Date [...] Description 11/26/2024 9:30 AM EDT [facility] [address] [place] [address] Chavez Canales, BAUTISTA Grade 2 ankle sprain (Primary Dx); Ankle instability, right; Right foot drop 11/26/2024 [facility] [address] [place] [address] Chavez Canales DPM 11/26/2024 Travel from Last [...] Vaccine: 65+ Years Completed 6, 03/31/2011 Insurance [facility] MED[facility] Care Teams Rubber Factory Worker Relationship Specialty Start Date End Date Rocio Dahl MD [address] [place] [phone] PCP - General Family Medicine 08/17/24
--- OUTSIDE RECORDS SUMMARY | 2025-02-22 11:01 | XMS_ITS | Encounter Summary ---
Author Organization [facility] Address [address] [facility], [address] [place] [address] Care Team Providers Care Artificial Limb Fitter Name Role Phone Rocio Dahl MD Primary Care Provider [phone] Reason for Visit * Reason Onset Date Comments Medication Refill 02/07/2015 Encounter Details Date Type Department Care Team (Late st Contact Info) Description 02/07/2015 Refill [facility]IMARY CARE LO[facility] [address] [place] [address] Rocio Dahl MD [address] [place] [address] Medication Refill Social History Tobacco [...] 03/17/2025 9:00 AM EDT Office Visit [facility] [employer] [address] [place] [address] Reagan Pascal MD [address] [place] [address] 08/23/2025 9:00 AM EST [facility] [address] [place] [address] Rocio Dahl MD [address] [place] [address] Return in about 6 months (around 08/20/2025) for HTN, Hyperlipidemia, gerd, dysthymia , Hypothyroid, ckd. 12/23/2025 8:30 AM EDT Office Visit [facility] UROLOG[facility] Part of [address] [place] [address] Yasmeen Thakkar, PROGRAM AIDE - GRADER MARKER [address] [place] [address] Dr [address]us [address] [place] [address] 1Y f/u documented as of this encounter [...] documented as of this encounter Care Teams Artificial Limb Fitter Relationship Specialty Start Date End Date Rocio Dahl MD [address] [place], [place] [phone] PCP - General 07/15/12 documented as of this encounter
--- OUTSIDE RECORDS SUMMARY | 2025-02-22 11:01 | XMS_ITS | Encounter Summary ---
Author Organization [facility] Address [address] [facility], [address] [place] [address] Care Team Providers Care Entertainment & Media Correspondent Name Role Phone Rocio Dahl MD Primary Care Provider [phone] Reason for Visit * Reason Onset Date Comments Medication Refill 08/09/2019 Encounter Details Date Type Department Care Team (Late st Contact Info) Description 08/09/2019 Refill [facility] PRIMARY CARE LOI [address] [place] [address] Rocio Dahl MD [address] [place] [address] Medication Refill Social History Tobacco [...] Description 03/17/2025 9:00 AM EDT Office Visit [facility] Occupational Medicine Specialist [address] [place] [address] Reagan Pascal MD [address] [place] [address] 08/23/2025 9:00 AM EST Office Visit [facility] PRIMARY CARE [address] [phone] Rocio Dahl MD [address] [place] [address] Return in about 6 months (around 08/20/2025) for HTN, Hyperlipidemia, gerd, dysthymia , Hypothyroid, ckd. 12/23/2025 8:30 AM EDT Office Visit [facility] Part of [address] [place] [address] Yasmeen Thakkra, COASTAL/HARBOR DEFENSE OFFICER - AFTER SCHOOL PROGRAM TEACHER [address] [place] [address] Dr [address]us [address] [place] [address] 1Y f/u documented as of this encounter [...] documented as of this encounter Care Teams Entertainment & Media Correspondent Relationship Specialty Start Date End Date Rocio Dahl MD [address] [place], [place] [phone] PCP - General 07/15/12 documented as of this encounter
--- OUTSIDE RECORDS SUMMARY | 2025-02-22 11:01 | XMS_ITS | Encounter Summary ---
Author Organization [employer] Address [facility] [place] [address] Care Team Providers Care Change Management Administrator Name Role Phone Rocio Dahl MD Primary Care Provider [phone] Encounter Details Date Type Department Care Team (Late st Contact Info) Description 11/23/2021 Legacy Encounter [facility] Legacy Dept Provider, Legacy Conversion Social [...] Telephone Encounter - Legacy Conversion Provider - 11/23/2021 3:26 PM EDT Last OV: 10/17/2021 UTI Sleep apnea Last RX: Next scheduled apt: 05/03/2022 AWV Pt requesting a refill EDT documented in this encounter Plan of Treatment Not on file documented as of this encounter Visit Diagnoses Not on filedocumented in this encounter Care Teams Change Management Administrator Relationship Specialty Start Date End Date Rocio Dahl MD [address] [place] [address] PCP - General 03/08/17 documented as of this encounter
--- OUTSIDE RECORDS SUMMARY | 2025-02-22 11:01 | XMS_ITS | Clinical Summary ---
Author Organization [employer] Address [id number] [address] [place] [address] Care Team Providers Care Compressor Station Operator Name Role Phone Rocio Dahl MD Primary Care Provider [phone] Allergies Active Allergy Reactions Criticality Noted Date [...] on file Insurance MEDICARE COMMERCIAL Care Teams Compressor Station Operator Relationship Specialty Start Date End Date Rocio Dahl MD [address] [place] [id number] PCP - General Family Medicine 04/19/18
--- OUTSIDE RECORDS SUMMARY | 2025-02-22 11:01 | XMS_ITS | Encounter Summary ---
Author Organization [facility] Address [address] [facility], [address] [place] [address] Care Team Providers Care Registered Nurse Practitioner Name Role Phone Rocio Dahl MD Primary Care Provider [phone] Encounter Details Date Type Department Care Team (Late st Contact Info) Description 02/01/2015 Post-op Telephone [facility] General Surgery [address] [place] [id number] Fabiola Frank RN Social History Tobacco Use Types Packs/Day [...] 03/17/2025 9:00 AM EDT Office Visit [facility] Cashier Receptionist [address] [place] [address] Reagan Pascal MD [address] [place] [address] 08/23/2025 9:00 AM EST Office Visit [facility] PRIMARY CARE LOI [address] [place] [address] Rocio Dahl MD [address] [place] [address] Return in about 6 months (around 08/20/2025) for HTN, Hyperlipidemia, gerd, dysthymia , Hypothyroid, ckd. 12/23/2025 8:30 AM EDT Office Visit [facility] UROLOGY Part of [address] [place] [address] Yasmeen Thakkar, AUTO DETAILER - PRODUCT SAFETY SPECIALIST [address] [facility] [address] [place] [address] 1Y f/u documented as of this encounter [...] documented as of this encounter Care Teams Registered Nurse Practitioner Relationship Specialty Start Date End Date Rocio Dahl MD [address] [place], [place] [phone] PCP - General 07/15/12 documented as of this encounter
--- OUTSIDE RECORDS SUMMARY | 2025-02-22 11:02 | XMS_ITS | Encounter Summary ---
Author Organization [facility] Address [address] [facility], [address] [place] [address] Care Team Providers Care Baker Bench Name Role Phone Rocio Dahl MD Primary Care Provider [phone] Reason for Visit * Reason Onset Date Comments Medication Refill 05/23/2015 Encounter Details Date Type Department Care Team (Late st Contact Info) Description 05/23/2015 Refill [facility] PRIMARY CARE LOI [address] [place] [address] Rocio Dahl MD [address] [place] [address] Medication Refill Social History Tobacco [...] 03/17/2025 9:00 AM EDT Office Visit [facility] Motion Study Engineer [address] [place] [address] Reagan Pascal MD [address] [place] [address] 08/23/2025 9:00 AM EST Office Visit [facility] [address] [place] [address] Rocio Dahl MD [address] [place] [address] Return in about 6 months (around 08/20/2025) for HTN, Hyperlipidemia, gerd, dysthymia , Hypothyroid, ckd. 12/23/2025 8:30 AM EDT Office Visit [facility] UROLOGY Part of [address] [place] [address] Yasmeen Thakkar, PRINCIPAL CYBER ENGINEER - PROTOTYPE DEICER ASSEMBLER [address] [place] [address] [address] [place] [address] 1Y f/u documented as of this encounter [...] documented as of this encounter Care Teams Baker Bench Relationship Specialty Start Date End Date Rocio Dahl MD [address] [place] [address] PCP - General 07/15/12 documented as of this encounter
--- OUTSIDE RECORDS SUMMARY | 2025-02-22 11:02 | XMS_ITS | Encounter Summary ---
Author Organization [facility] Address [address] [facility], [address] [place] [address] Care Team Providers Care Non Licensed Operator Name Role Phone Rocio Dahl MD Primary Care Provider [phone] Reason for Visit * Reason Onset Date Comments Medication Refill 09/09/2020 Encounter Details Date Type Department Care Team (Late st Contact Info) Description 09/09/2020 Refill [facility] PRIMARY CARE LOI [address] [place] [address] Rocio Dahl MD [address] [place] [address] Medication Refill Social History Tobacco Use Types Packs/Day Years Used Date Smoking Tobacco: Never Smokeless Tobacco: Never Alcohol Use Standard Drinks/Week Comments No 0 (1 standard drink = 0.6 oz pur e alcohol) occasional PHQ-2 Answer Date Recorded PHQ-9 Total Score 2 04/20/2020 Comments No Sex and Gender Information Value [...] Description 03/17/2025 9:00 AM EDT Office Visit [facility] Executive Chairman [address] [place] [address] Reagan Pascal MD [address] [place] [address] 08/23/2025 9:00 AM EST Office Visit [facility] [place] [address] [place] [address] Rocio Dahl MD [address] [place] [address] Return in about 6 months (around 08/20/2025) for HTN, Hyperlipidemia, gerd, dysthymia , Hypothyroid, ckd. 12/23/2025 8:30 AM EDT Office Visit [facility] UROLOGY Part of [address] [place] [address] Yasmeen Thakkar, KEEPER HEAD - WIRE ROPE SLING MAKER [address] [place] [address] Dr [address] [place] [address] 1Y f/u documented as of this encounter Goals Goal Patient Goal Type Associated Problems Recent Progress Patient-Stated? Author get rid of UTI Lifestyle Marylin August documented as of this encounter Visit Diagnoses Diagnosis Dysthymic disorder documented in this encounter Additional Health Concerns Infection Onset Date Last Indicated Resolved Time C-diff Rule Out 11/27/2020 11/27/2020 11/28/2020 1 [...] documented as of this encounter Care Teams Non Licensed Operator Relationship Specialty Start Date End Date Rocio Dahl MD [address] [place] [address] PCP - General 07/15/12 documented as of this encounter
--- OUTSIDE RECORDS SUMMARY | 2025-02-22 11:02 | XMS_ITS | Encounter Summary ---
Author Organization [facility] Address [address] [facility], [address] [place] [address] Care Team Providers Care Emergency Response Coordinator Name Role Phone Rocio Dahl MD Primary Care Provider [phone] Reason for Visit * Reason Comments Medication Refill Encounter Details Date Type Department Care Team (Late Contact Info) Description 11/25/2015 Refill [facility] Wood Patternmaker [address] [place] [address] Reagan Pascal MD [address] [place] [address] Medication Refill Social History Tobacco [...] Description 03/17/2025 9:00 AM EDT Office Visit [facility] Wood Patternmaker [address] [place] [address] Reagan Pascal MD [address] [place] [address] 08/23/2025 9:00 AM EST Office Visit [facility] [address] [place] [address] Rocio Dahl MD [address] [place] [phone] Return in about 6 months (around 08/20/2025) for HTN, Hyperlipidemia, gerd, dysthymia , Hypothyroid, ckd. 12/23/2025 8:30 AM EDT Office Visit [facility] UROLOGY Part of [address] [place] [address] Yasmeen Thakkar, PHYSICIAN RECRUITER - MECHANICAL TECHNICAL SERVICE SPECIALIST [address] [place] [address] Dr [address] [place] [address] 1Y f/u documented as of [...] documented as of this encounter Care Teams Emergency Response Coordinator Relationship Specialty Start Date End Date Rocio Dahl MD [address] [place], [place] [phone] PCP - General 07/15/12 documented as of this encounter
--- OUTSIDE RECORDS SUMMARY | 2025-02-22 11:02 | XMS_ITS | Encounter Summary ---
Author Organization [facility] Address [address] [facility], [address] [place] [address] Care Team Providers Care Theater Technician Name Role Phone Rocio Dahl MD Primary Care Provider [phone] Reason for Visit * Reason Onset Date Comments Medication Refill 06/07/2020 Encounter Details Date Type Department Care Team (Late st Contact Info) Description 06/07/2020 Refill [facility] PRIMARY CARE LOI [address] [place] [address] Rocio Dahl MD [address] [place] [address] Medication Refill Social History Tobacco [...] 9:00 AM EDT Office Visit [facility] Electric Detector Operator [address] [place] [address] Reagan Pascal MD [address] [place] [address] 08/23/2025 9:00 AM EST Office Visit [facility] PRIMARY CARE [address] [phone] Rocio Dahl MD [address] [place] [address] Return in about 6 months (around 08/20/2025) for HTN, Hyperlipidemia, gerd, dysthymia , Hypothyroid, ckd. 12/23/2025 8:30 AM EDT Office Visit [facility] UROLOGY Part of [address] [place] [address] Yasmeen Thakkar, NETWORK FIELD ENGINEER - MACHINE OPERATOR HOP PICKER [address] [place] [address] [address] [place] [address] 1Y f/u documented as of this encounter Goals Goal Patient Goal Type Associated Problems Recent Progress Patient-Stated? Author get rid of UTI Lifestyle Marylin August documented as of this encounter Visit Diagnoses Diagnosis Dysthymic disorder documented in this encounter Additional Health Concerns Infection Onset Date Last Indicated Resolved Time COVID-19 (Rule Out) 06/29/2020 06/29/2020 06/30/20 20 [...] documented as of this encounter Care Teams Theater Technician Relationship Specialty Start Date End Date Rocio Dahl MD [address] [place], [place] [phone] PCP - General 07/15/12 documented as of this encounter
--- OUTSIDE RECORDS SUMMARY | 2025-02-22 11:03 | XMS_ITS | Encounter Summary ---
Author Organization [facility] Address [address] [facility], [address] [place] [address] Care Team Providers Care National Park Ranger Name Role Phone Rocio Dahl MD Primary Care Provider Reason for Visit * Reason Onset Date Comments Medication Refill 09/02/2018 Encounter Details Date Type Department Care Team (Late st Contact Info) Description 09/02/2018 Refill [facility] PRIMARY CARE LOI [address] [place] [address] Rocio Dahl MD [address] [place] [phone] Medication Refill Social History Tobacco Use Types [...] Description 03/17/2025 9:00 AM EDT Office Visit [facility] And Drying Supervisor Cooking Casing [address] [place] [phone] Reagan Pascal MD [address] [place] [address] 08/23/2025 9:00 AM EST Office Visit [facility] LOI [address] [place] [address] Rocio Dahl MD [address] [place] [phone] Return in about 6 months (around 08/20/2025) for HTN, Hyperlipidemia, gerd, dysthymia , Hypothyroid, ckd. 12/23/2025 8:30 AM EDT Office Visit [facility] UROLOGY Part of [address] [place] [address] Yasmeen Thakkar, WIND TURBINE BLADE REPAIR TECHNICIAN - PHYSICIAN SUPPORT COORDINATOR [address] [place] [address] Dr [address] [place] [address] 1Y f/u documented as of this encounter [...] documented as of this encounter Care Teams National Park Ranger Relationship Specialty Start Date End Date Rocio Dahl MD [address] [place] [address] PCP - General 07/15/12 documented as of this encounter
--- OUTSIDE RECORDS SUMMARY | 2025-02-22 11:03 | XMS_ITS | Clinical Summary ---
Author Organization [facility] Address [address] [place] [address] Phone Care Team Providers Care Wildland Fire Fighter Name Role Phone Unavailable Primary Care Provider [...]
--- OUTSIDE RECORDS SUMMARY | 2025-02-22 11:03 | XMS_ITS | Encounter Summary ---
Author Organization [facility] Address [address] [facility] [place] [address] Care Team Providers Care Events Administrative Assistant Name Role Phone Rocio Dahl MD Primary Care Provider [phone] Reason for Visit * Reason Comments Medication Refill Encounter Details Date Type Department Care Team (Late Contact Info) Description 06/10/2012 Refill [facility] PRIMARY CARE LOI [address] [place] [address] Rocio Dahl MD [address] [place] [address] Medication Refill Social History Tobacco Use Types [...] Upcoming Encounters Date Type Department Care Team ([facility] Contact Info) Description 03/17/2025 9:00 AM EDT Office Visit [facility] Rn Transitional [address] [place] [address] Reagan Pascal MD [address] [place] [address] 08/23/2025 9:00 AM EST Office Visit [facility] [address] [place] [address] Rocio Dahl MD [address] [place] [address] Return in about 6 months (around 08/20/2025) for HTN, Hyperlipidemia, gerd, dysthymia , Hypothyroid, ckd. 12/23/2025 8:30 AM EDT Office Visit [facility] UROLOGY Part of [address] [place] [address] Yasmeen Thakkar, ASSISTANT PROSECUTING ATTORNEY - ENVIRONMENTAL HEALTH PHYSICIAN [address] [place] [address] [address] [place] [address] 1Y f/u documented as of [...] documented as of this encounter Care Teams Events Administrative Assistant Relationship Specialty Start Date End Date Rocio Dahl MD [address] [place] [address] PCP - General 07/15/12 documented as of this encounter
--- OUTSIDE RECORDS SUMMARY | 2025-02-22 11:03 | XMS_ITS | Encounter Summary ---
Author Organization [facility] Address [address] [facility] [place] [address] Care Team Providers Care Pile Driver Operator Name Role Phone Rocio Dahl MD Primary Care Provider [phone] Encounter Details Date Type Department Care Team (Late st Contact Info) Description 09/24/2023 Orders Only [facility] PRIMARY CARE LOI [address] [place] [address] ProviderAlexandra MD Social History Tobacco Use Types Packs/Day Years Used Date Smoking Tobacco: Never Smokeless Tobacco: Never Alcohol Use Standard Drinks/Week Comments No 0 (1 standard drink = 0.6 oz pur e alcohol) occasional AUDIT-C Answer Date Recorded Q1: How often do you have a drink containing alcohol? Never 07/01/2023 Q2: How many drinks containi ng alcohol do you have on a typical day when you are drinking? Patient does not drink Q3: How often do you have si x or more drinks on one occasion? Never 07/01/2023 Overall Financial Resource Strain (CARDIA) Answe r Date Recorded How hard is it for you to pa y for the very basics like food, housing, medical care, and heating? Not hard at all 09/03/2022 PHQ-2 Answer Date Recorded PHQ-9 Total Score 4 08/06/2023 Exercise Vital Sign Answer Date Recorde d On average, how many days pe r week do you engage in moderate to strenuous exercise (like a brisk walk)? 7 days 05/06/2023 On average, how many minutes do you engage in exercise at this level? 10 min 05/06/2023 Hunger Vital Sign Answer Date Recorded Within the past 12 months, y ou worried that your food would run out before you got the money to buy more. Never true 09/04/19 23 Within the past 12 months, t he food you bought just didn't last and you didn't have money to get more. Never true 09/03/2022 PRAPARE - Transportation Answer Date Re corded Lack of Transportation (Medical) Not on file 09/03/2022 In the past 12 months, has l ack of transportation kept you from meetings, work, or from getting things needed for daily living? No 09/03/2022 Housing Stability Vital Sign Answer Matt e Recorded Unable to Pay for Housing in the Last Year Not o n file 09/03/2022 Number of Places Lived in the Last Year Not on f ile 09/03/2022 In the last 12 months, was t here a time when you did not have a steady place to sleep or slept in a long-term (including now)? No 09/03/2022 Food Insecurity Answer Date Recorded Within the past 12 months, y ou worried that your food would run out before you got the money to buy more. 1 09/03/2022 Within the past 12 months, t he food you bought just didn't last and you didn't have money to get more. 1 09/03/2022 Interpersonal Safety Domain Source: IP Abuse Scr eening Answer Date Recorded Read-Only, Retired: Physical Abuse Denies 07/01/2023 Read-Only, Retired: Verbal Abuse Denies 07/01/2023 Read-Only, Retired: Emotional abuse Denies 07/01/2023 Read-Only, Retired: Financial Abuse Denies 07/01/2023 Read-Only, Retired: Sexual abuse Denies 07/01/2023 Comments No Sex and Gender Information Value [...] Description 03/17/2025 9:00 AM EDT Office Visit [facility] Cracker Sprayer [address] [place] [address] Reagan Pascal MD [address] [place] [address] 08/23/2025 9:00 AM EST Office Visit [facility] PRIMARY CARE LOI [address] [place] [address] Rocio Dahl MD [address] [place] [address] Return in about 6 months (around 08/20/2025) for HTN, Hyperlipidemia, gerd, dysthymia , Hypothyroid, ckd. 12/23/2025 8:30 AM EDT Office Visit [facility] UROLOG[facility] Part of [address] [place] [address] Yasmeen Thakkar, GAS CONTROLLER - HIGH SCHOOL LEARNING SUPPORT TEACHER [address] [place] [address] 1Y f/u documented as of this encounter Goals Goal Patient Goal Type Associated Problems Recent Progress Patient-Stated? Author get rid of UTI Lifestyle Marylin August documented as of this encounter Procedures Procedure Name Priority Date/Time Associated Diagnosis Comments COLONOSCOPY Routine 09/16/2023 6:50 AM EDT documented in this encounter Results * HM COLONOSCOPY (09/16/2023 6:50 AM EDT) us Historical Provider HEALTH MAINTENANCE Final Result documented in this encounter Visit Diagnoses Not on filedocumented in this encounter Additional Health Concerns Infection Onset Date Last Indicated Resolved Time COVID-19 (Rule Out) 06/24/2024 06/24/2024 06/24/20 5:56 PM EST COVID-19 06/24/2024 06/24/2024 07/08/2024 9:27 PM EST Assessment Noted Time A fall risk assessment has been complete d for the patient 05/06/2023 8:57 AM EST documented as of this encounter Care Teams Pile Driver Operator Relationship Specialty Start Date End Date Rocio Dahl MD [address] [place] [phone] PCP - General 07/15/12 documented as of this encounter
--- OUTSIDE RECORDS SUMMARY | 2025-02-22 11:03 | XMS_ITS | Encounter Summary ---
Author Organization [facility] Address [address] [facility], [address] [place] [address] Care Team Providers Care Food Science Technician Name Role Phone Rocio Dahl MD Primary Care Provider [phone] Reason for Visit * Reason Comments Medication Refill Encounter Details Date Type Department Care Team (Late Contact Info) Description 01/26/2019 Refill [facility] PRIMARY CARE LOI [address] [place] [address] Rocio Dahl MD [address] [place] [address] Medication Refill Social History Tobacco Use Types [...] Upcoming Encounters Date Type Department Care Team ([facility] Contact Info) Description 03/17/2025 9:00 AM EDT Office Visit [facility] Career Specialist [address] [place] [address] Reagan Pascal MD [address] [place] [address] 08/23/2025 9:00 AM EST Office Visit [facility] C[facility] LOI [address] [place] [address] Rocio Dahl MD [address] [place] [address] Return in about 6 months (around 08/20/2025) for HTN, Hyperlipidemia, gerd, dysthymia , Hypothyroid, ckd. 12/23/2025 8:30 AM EDT Office Visit [facility] UROLOGY Part of [address] [place] [address] Yasmeen Thakkar, PAYLOADER MACHINE OPERATOR - REGIONAL VICE PRESIDENT [employer] [address] [place] [address] [address] [place] [address] 1Y f/u documented as of this encounter [...] documented as of this encounter Care Teams Food Science Technician Relationship Specialty Start Date End Date Rocio Dahl MD [address] [place] [address] PCP - General 07/15/12 documented as of this encounter
--- OUTSIDE RECORDS SUMMARY | 2025-02-22 11:03 | XMS_ITS | Encounter Summary ---
Author Organization [facility] Address [address] [facility] [place] [address] Care Team Providers Care Painter And Body Mechanic Apprentice Name Role Phone Rocio Dahl MD Primary Care Provider [phone] Reason for Visit * Reason Comments Medication Refill Encounter Details Date Type Department Care Team (Late Contact Info) Description 01/06/2012 Refill [facility] PRIMARY CARE LOI [address] [place] [address] Rocio Dahl MD [address] [place] [address] Medication Refill Social History Tobacco Use Types [...] Upcoming Encounters Date Type Department Care Team ([facility] Contact Info) Description 03/17/2025 9:00 AM EDT Office Visit [facility] Ward Helper [address] [place] [address] Reagan Pascal MD [address] [place] [address] 08/23/2025 9:00 AM EST Office Visit [facility] [place] [address] [place] [address] Rocio Dahl MD [address] [place] [address] Return in about 6 months (around 08/20/2025) for HTN, Hyperlipidemia, gerd, dysthymia , Hypothyroid, ckd. 12/23/2025 8:30 AM EDT Office Visit [facility] UROLOGY Part of [address] [place] [address] Yasmeen Thakkar, QA TESTER - SENIOR NET WEB DEVELOPER [address] [place] [address] [address] [place] [address] 1Y f/u documented as of [...] documented as of this encounter Care Teams Painter And Body Mechanic Apprentice Relationship Specialty Start Date End Date Rocio Dahl MD [address] [place] [address] PCP - General 07/15/12 documented as of this encounter
--- OUTSIDE RECORDS SUMMARY | 2025-02-22 11:03 | XMS_ITS | Encounter Summary ---
Author Organization [facility] Address [address], [address] [place] [address] Care Team Providers Care Milk Bottler Name Role Phone Rocio Dahl MD Primary Care Provider [phone] Encounter Details Date Type Department Care Team (Late st Contact Info) Description 09/20/2023 Orders Only [facility] PRIMARY CARE LOI [address] [place] [address] ProviderAlexandra MD Social History Tobacco [...] in a jail (including now)? No 09/03/2022 Food Insecurity Answer [...] 9:00 AM EDT Office Visit [facility] Electron Beam Machine Welder Setter [address] [place] [phone] Reagan Pascal MD [address] [place] [address] 08/23/2025 9:00 AM EST Office Visit [facility] PRIMARY CARE LOI [address] [place] [phone] Rocio Dahl MD [address] [place] [address] Return in about 6 months (around 08/20/2025) for HTN, Hyperlipidemia, gerd, dysthymia , Hypothyroid, ckd. 12/23/2025 8:30 AM EDT Office Visit [facility] UROLOGY Part of [address] [place] [address] Yasmeen Thakkar, ERECTING CRANE OPERATOR - CULTURIST [address] [place] [address] 1Y f/u documented as of this encounter Goals Goal Patient Goal Type Associated Problems Recent Progress Patient-Stated? Author get rid of UTI Lifestyle Marylin August documented as of this encounter Procedures Procedure Name Priority Date/Time Associated Diagnosis Comments SURGICAL PATHOLOGY Routine 09/16/2023 8:01 AM EDT documented in this encounter Results * Surgical Pathology (09/16/2023 8:01 AM EDT) Tissue SPECIMEN FROM UNSPECIFIED BODY SITE / Unknown us Historical Provider PATHOLOGY/CYTOLOGY ORDERA BLES Final Result documented in this encounter Visit Diagnoses Not on filedocumented in this encounter Additional Health Concerns Infection Onset Date Last Indicated Resolved Time COVID-19 (Rule Out) 06/24/2024 06/24/202420 24 5:56 PM EST COVID-19 06/24/2024 06/24/2024 07/08/2024 9:27 PM EST Assessment Noted Time A fall risk assessment has been complete d for the patient 05/06/2023 8:57 AM EST documented as of this encounter Care Teams Milk Bottler Relationship Specialty Start Date End Date Rocio Dahl MD [address] [place] [address] PCP - General 07/15/12 documented as of this encounter
--- OUTSIDE RECORDS SUMMARY | 2025-02-22 11:03 | XMS_ITS | Encounter Summary ---
Author Organization [facility] Address [address] [place] [address] Care Team Providers Care Paper Deliverer Name Role Phone Rocio Dahl MD Primary Care Provider [phone] Source Comments In the event this information is protected by the Federal Confidentiality of Alcohol and Drug AbusePatient Records regulations: The Federal rules restrict any use of the information to criminally investigate or prosecute any alcohol or drug abuse patient.[facility] Encounter Details Date Type Department Care Team (Late st Contact Info) Description 03/17/2018 Get Medical Advice [facility] [address] [phone] Andrews Fish MD [address] [place] [address] RE: Visit Follow Up Question [...] on filedocumented in this encounter Care Teams Paper Deliverer Relationship Specialty Start Date End Date Rocio Dahl MD PCP - General 05/05/07 documented as of this encounter
--- OUTSIDE RECORDS SUMMARY | 2025-02-22 11:03 | XMS_ITS | Patient Health Record ---
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) Active confirmed Encounters Encounter Location Date Provider Diagnosis [facility] [address] [place] [address] 07/15/2024 Eliza Salas Primary osteoarthrit is of right ankle M19.071 and Peroneal tendinitis, right leg M76.71 [facility] [address] [address] 08/05/2024 Eliza Salas Primary osteoarthrit is of [...] End Date Medicare [address] [id number] BINA RIOS Self - patient is the insured [facility] Supplemental Insurance [address] [address] [facility] [place] [address] [id number] BINA RIOS Self - patient is the insured Medical (General) History Medical History History ICD Code Respiratory problems: Hypothyroidism GI Problems: Depression Kidney trouble Sleep apnea CPAP Machine: Latex Allergy Drug Allergies Surgical History Surgery Date(Month/Year) Mika knee Right ankle Left hip
--- OUTSIDE RECORDS SUMMARY | 2025-02-22 11:03 | XMS_ITS | Encounter Summary ---
Author Organization [facility] Address [address] [place] [address] Care Team Providers Care Online User Experience Strategist Name Role Phone Rocio Dahl MD Primary Care Provider Source Comments In the event this information is protected by the Federal Confidentiality of Alcohol and Drug AbusePatient Records regulations: The Federal rules restrict any use of the information to criminally investigate or prosecute any alcohol or drug abuse patient.[facility] Encounter Details Date Type Department Care Team (Late st Contact Info) Description 02/13/2018 Abstract Neurology [address] [place], [place] [id number] (Historical), Unknown Social History Tobacco Use Types [...] on filedocumented in this encounter Care Teams Online User Experience Strategist Relationship Specialty Start Date End Date Rocio Dahl MD PCP - General 05/05/07 documented as of this encounter
--- OUTSIDE RECORDS SUMMARY | 2025-02-22 11:03 | XMS_ITS | Encounter Summary ---
Author Organization [facility] Address [address] [place] [address] Care Team Providers Care Violin Restorer Name Role Phone Rocio Dahl MD Primary Care Provider [phone] Source Comments In the event this information is protected by the Federal Confidentiality of Alcohol and Drug AbusePatient Records regulations: The Federal rules restrict any use of the information to criminally investigate or prosecute any alcohol or drug abuse patient.[facility] Encounter Details Date Type Department Care Team (Late st Contact Info) Description 03/12/2018 Get Medical Advice [facility] [address] [phone] Andrews Fish MD [address] [place] [address] RE: Visit Follow Up Question [...] on filedocumented in this encounter Care Teams Violin Restorer Relationship Specialty Start Date End Date Rocio Dahl MD PCP - General 05/05/07 documented as of this encounter
--- OUTSIDE RECORDS SUMMARY | 2025-02-22 11:14 | XMS_ITS | CCD ---
Author Organization [facility] Inform ion [facility] Care Team Providers Care Home Care Aide Name Role Phone JAMISON OWENS Unavailable Unavailable ANDREWS FISH Unavailable Unavailable LANIE PRINCE Unavailable Unavailable ANDREWS FISH Unavailable Unavailable Roni Dahl Primary Care Provider [phone] Roni Dahl Primary Care Provider [phone] Roni Dahl Primary Care Provider [phone] Roni Dahl MD Primary Care Provider Roni [...] Provider MD Yanelis Garcia Attending Provider MD Rnoi Dahl Primary Care Provider Verhoff MD, Roni L Primary Care Provider MD Roni Dahl Primary Care Provider MD Yanelis Garcia Attending Provider MD Roni Dahl Primary Care Provider MD Yanelis Garcia Attending Provider MD Daniel Hylton Attending Provider Tara Patel Unavailable Roni Dahl MD Primary Care Provider MD Roin Dahl Primary Care Provider MD Yanelis Garcia Attending Provider DILIP Vasquez Emergency Provider [phone] MD Mukul Wilson Attending Provider Mukul Wilson Unavailable LANIE PRINCE Referring Unavailable XU MARTINEZ Attending Unavailable XU MARTINEZ Attending Unavailable Roni Dahl MD Primary Care Provider MARY SUE Attending Unavail able RONI DAHL Primary Care Unavailable GRAYSON HUTCHINSON JR. Admitting Unavail able ANDRE ROWE Referring Unavailable RONI DAHL Primary Care Unavailable GRAYSON HUTCHINSON JR. Attending Unavail able MD Roni Dahl Primary Care Provider DILIP Vasquez Emergency Provider MD Mukul Wilson Attending Provider MD Yanelis Garcia Attending Provider MD Obie Hylton Attending Provider [phone] MD Roni Dahl Primary Care Provider DENISHA [...] VERHOFF, RONI L Referring Unavailable VIGESAA, REAGAN Filed Referring Unavailable VERHOFF, RONI L Primary Care [...] Unavailable VerRoni pérez MD Primary Care Provider [phone] Obie Hylton MD Attending Provider Laura RIVERA-CNuvia [...] Unavailabl e JOHN PAUL MAYFIELD Referring Unavailable [facility] Unavailable Roni Dahl MD Primary Care Provider [phone] RONI DAHL Primary Care Unavailable GEORGES BARGER Attending Unavailable CHRISTIAN LUCIO Attending Unavailable RONI DAHL Primary Care Unavailable [facility] Primary Care Unavailable GEORGES BARGER TANYA Referring Unavailable GEORGES BARGER Admitting Unavailable Kimberly STEINER, Trevon Ko Attending Unavailable Nabila [facility], [facility]availab Jan STEINER, Andrius Ko Attending Unavailable Nabila STEINER, [facility] Unavailab Jan STEINER, Andrius Riveraytserafin Attending Unavailable Nabila STEINER, [facility] Unavailab Jan STEINER, Andrius Riveraytserafin Attending Unavailable Nabila STEINER, [facility] Unavailab Jan STEINER, Andrius Ko Attending Unavailable Nabila STEINER, [facility] Unavailab dixon Harris MD, Andrius Vytserafin Attending Unavailable Nabila STEINER, [facility] Unavailab dixon Harris MD, Andrius Vytautjhonatan Attending Unavailable Nabila STEINER, [facility] Unavailab Jan STEINER, Andrius Ko Attending Unavailable Nabila STEINER, [facility] Unavailab le Allergies Allergy Classification Reported Allergen(s) Allergy Type Date of Onset Reaction(s) Facility hydroCHLOROthiazide (6 sources) hydroCHLOROthiazide Drug Allergy 2019 Rash [facility] Latex (6 sources) Latex Substance Allergy 2010 Itching [facility] NSAIDs (6 sources) Ibuprofen Drug Allergy 2018 Rash [facility] Opioid Agonists (6 sources) Morphine Drug Allergy 2010 Other (See Comments) [facility] Serotonin Reuptake Inhibitors (SSRIs) (6 sources) Escitalopram Drug Allergy 2014 Itching, Rash [facility] Sulfonamides (antibiotic) (12 sources) Sulfonamides (Antibiotic) Drug Allergy 2007 Other (See Comments), Itching [facility] Sulfur (6 sources) Sulfur Drug Allergy 2019 Itching [facility] Triamterene (6 sources) Triamterene Drug Allergy 2018 Rash [facility] WHEAT DEXTRIN (6 sources) WHEAT DEXTRIN Drug Allergy 2010 [facility] (1 source) escitalopram; Translations: [ESCITALOPRAM OXALATE] Drug Allergy 2007 [facility] Repository (20 sources) morphine; Translations: [MORPHINE] Drug Allergy 2007 Other (See Comments), Vomiting (disorder), GI Intolerance, Other [facility] Repository (8 sources) Sulfonamides (Antibiotic); Translations: [SULFA (SULFONAMIDE ANTIBIOTICS)] Propensity to adverse reactions to drug (disorder) 2007 Hives [facility] Repository (1 source) GLUTEN FLOUR; Translations: [GLUTEN FLOUR] Propensity to adverse reactions to food (disorder) 2017 [facility] Repository (20 sources) Escitalopram; Translations: [ESCITALOPRAM] Drug Allergy 2007 Itching, Rash [facility], [place] (20 sources) Ibuprofen; Translations: [ibuprofen] Drug Allergy 2018 Rash, GI intolerance [facility] [place] (20 sources) Latex; Translations: [LATEX] Propensity to adverse reactions to drug 2010 Itching, Eruption of skin (disorder), Rash, Other (See Comments) [facility] [place] (20 sources) Sulfonamides (Antibiotic) Propensity to adverse reactions to drug 2007 Other (See Comments) [facility] [place] (20 sources) Triamterene; Translations: [triamterene] Drug Allergy 2018 Rash, Eruption of skin (disorder) [facility], [place] Comment on above: dyazide or ibuprofen caused the rash-taken off both because not sure which one caused the problem (20 sources) WHEAT DEXTRIN; Translations: [Wheat] Drug Allergy 2010 Itching [place], [place] (20 sources) hydroCHLOROthiazide; Translations: [HYDROCHLOROTHIAZIDE] Drug Allergy 2018 Rash [place], [place] Comment on above: dyazide or ibuprofen caused the rash-taken off both because not sure which one caused the problem (20 sources) Sulfacetamide Drug Allergy 2018 Itching [place] (20 sources) Sulfur; Translations: [SULFUR] Drug Allergy 2018 Itching [place], [place] (20 sources) Food Propensity to adverse reactions to drug 2021 [facility] (10 sources) Gluten; Translations: [Glutens] Food allergy Upset stomach (finding) [facility] (9 sources) Sulfamethoxazole; Translations: [sulfamethoxazole] Drug Allergy Eruption of skin (disorder) [facility] (17 sources) Sulfamethoxazole / Trimethoprim; Translations: [sulfamethoxazole-tri methoprim] Drug Allergy 2022 Rash, Other (See Comments) [facility] (16 sources) Sulfacetamide / Sulfur Drug Allergy Unknown [place] Other (20 sources) Sulfonamides (Antibiotic) Propensity to adverse reactions to drug 2007 Other (See Comments), Itching, Hives, [facility] (7 sources) Naproxen; Translations: [naproxen] Drug Allergy Unknown [facility] (19 sources) Wheat gluten extract Drug Allergy 2022 Nausea And Vomiting [facility] [employer] [place] (2 sources) Morphine Drug Allergy Unknown [place] Other (2 sources) Sulfamethoxazole / Trimethoprim; Translations: [SULFAMETHOXAZOLE-TRI METHOPRIM] Drug Allergy 2022 [facility] Repository (1 source) Wheat bran; Translations: [WHEAT BRAN] Propensity to adverse reactions to drug (disorder) 2010 [facility] Repository (1 source) GLUTEN PROTEIN; Translations: [GLUTEN PROTEIN] Propensity to adverse reactions to drug (disorder) 2017 [facility] Repository (6 sources) Gluten Allergy to substance 2017 GI intolerance, Itching [facility] (6 sources) hydroCHLOROthiazide Drug Allergy 2019 Rash [facility] (6 sources) Latex Propensity to adverse reactions 2010 Itching, Rash [facility] (6 sources) Triamterene Drug Allergy 2018 Rash [facility] (1 source) Escitalopram Drug Allergy 2022 [facility] Repository (1 source) hydroCHLOROthiazide Drug Allergy 2022 [facility] Repository (1 source) Ibuprofen Drug Allergy 2022 [facility] Repository (1 source) Latex Drug allergy (disorder) 2022 [facility] Repository (1 source) Sulfacetamide Drug Allergy 2022 [facility] Repository (1 source) Sulfur Drug Allergy 2022 [facility] Repository (1 source) Triamterene Drug Allergy 2022 [facility] Repository (2 sources) Wheat preparation Drug Allergy 2010 Itching [facility] (1 source) Sulfonamides (Antibiotic); Translations: [sulfa drugs] Propensity to adverse reactions to drug (disorder) [facility] Repository Medications Current Medications Medication Drug [...] 10, 2018 12:00am Azelastine-Fluticasone 137-5 0 mcg/spray Marcus,Non-Aerosol (2 sources) Start: 01-10-2018 Azelastine-Flu ticasone 137-50 mcg/spray Marcus,Non-Aerosol Active 1 SPRAY INTRANASAL Twice daily as needed for Nasal Congestion January 10, 2018 12:00am Start: 01-10-2018 Azelastine-Flu ticasone 137-50 mcg/spray Marcus,Non-Aerosol Active 1 SPRAY INTRANASAL Twice daily as needed for Nasal Congestion January 09, 2018 11:00pm Uetirqjcqk-Ysezmttnvfm-FjQv (16 sources) Azelastine-Fluti casone-NaCl Active azithromycin 250 [...] Active Start: 05-07-2023 take 1 tablet by [facility] twice daily diclofenac (VOLTAREN) 50 MG [...] Start: 08-05-2024 take 1 capsule by mo [facility] once daily dilTIAZem (CARDIZEM CD) 120 MG extended release capsule Indications: Atrial fibrillation, unspecified type (HCC) Take 1 capsule by mouth daily 90 capsule 1 08/05/2024 Active Start: 02-11-2024 take 1 capsule by [facility] once daily dilTIAZem (CARDIZEM CD) 120 MG extended release capsule Indications: Atrial fibrillation, unspecified type (HCC) Take 1 capsule by mouth daily 90 capsule 1 02/11/2024 Active Start: 06-27-2022 take 1 tablet [address] [facility] once daily Diltiazem Hcl 30 mg [...] Ordered Start: 05-20-2019 take 1 capsule by [facility] once daily docusate sodium (COLACE) 100 MG [...] 90 tab(s), Refills(s) 6, Pharmacy: [id number], 162, cm, 09/16/23 10:47:00 EDT, Height/Length Dosing, [...] 0 05/30/2019 Active fluticasone 0.05 mg/inh Nasal [facility] (8 sources) Start: 03-01-2021 fluticasone 0.05 mg/inh Nasal [facility] 50 mcg, Nasal, Daily, Refill(s) 0, Allergy symptoms Start Date: 03/01/21 Status: Ordered gabapentin 300 mg oral capsule (1 source) Anti-epileptic Agent Start: 05-27-2023 gabapentin (NEURONTIN) 300 MG capsule hydroCHLOROthiazide 25 mg / triamterene 37.5 mg oral capsule (20 sources) Potassium-spar ing Diuretic, Thiazide Diuretic Start: 06-27-2022 take 1 capsule by mouth once daily Triamterene-[place] chlorothiazid 37.5-25 mg Capsule Active 1 CAP [...] Ordered Start: 07-17-2021 take 1 capsule by [facility] once daily Metamucil Fibre Therapy [...] 20 capsule 0 10/14/2021 10/24/2021 Active nystatin 945548 unt/ml oral suspension (20 sources) Polyene Antifungal Start: 11-25-2024 nystatin (MYCOSTATIN) 177484 UNIT/ML suspension 11/25/2024 Active Start: 10-18-2023 End: 10-28-2023 take 5 mL by mouth four times daily nystatin (MYCOSTATIN) 719003 UNIT/ML suspension Take 5 mLs by mouth 4 times daily for 10 days Swish and swallow 200 mL 0 10/18/2023 10/28/2023 Active Start: 01-30-2023 take 4 mL by mouth f our times daily Nystatin 051219 UNIT/ML 4 ml swish and swallow Mouth/Throat Four times a day for 14 days Jan, Not-Taking Start: 12-20-2022 take 5 mL by mouth f our times daily nystatin (MYCOSTATIN) 412577 UNIT/ML suspension Take 5 mLs by mouth 4 times daily Swish and swallow. 200 mL 0 02/27/2023 Active Start: 11-25-2022 End: 11-25-2022 take 5 mL by mouth four times daily nystatin (MYCOSTATIN) 912673 UNIT/ML suspension Take 5 mLs by mouth 4 times daily Swish and swallow. 200 mL 0 11/25/2022 11/25/2022 Discontinued (DUPLICATE) Start: 08-15-2022 take 5 mL by mouth f our times daily nystatin (MYCOSTATIN) 938727 UNIT/ML suspension take 5 milliliters by mouth four times a day as directed 60 mL 2 08/15/2022 Active Start: 05-29-2022 take 5 mL by mouth f our times daily nystatin (MYCOSTATIN) 065054 UNIT/ML suspension Take 5 mLs by mouth 4 times daily 60 mL 2 05/29/2022 Active Start: 05-29-2022 Nystatin 100,0 00 unit/mL suspension Active 1 UNIT MUCOUS MEM Twice daily May 29, 2022 1:00am Start: 02-08-2022 nystatin (MYCO STATIN) 225212 UNIT/GM cream Apply topically 2 times daily Apply topically 2 times daily. 60 g 0 02/08/2022 Active Start: 02-27-2021 take 5 mL by mouth f our times daily nystatin (MYCOSTATIN) 310303 UNIT/ML suspension Take 5 mLs by mouth 4 times daily 150 mL 0 02/27/2021 Active Nystatin 923667 units/g (4 sources) Nystatin 937400 units/g applied topically as directed four times [...] Active Start: 05-15-2021 [facility] pantoprazole (PROTONIX) 20 MG tablet [...] Start: 03-01-2023 take 4 tablets by mo [facility] once daily Prednisone 10 mg tablet Active [...] [Polyp of colon] Onset: 4 Episodic 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 Comment on above: Order Comment: Injur y/Trauma or Illness?:Illness/Other How long have you had these symptoms (acute/chronic)?:Acute Reason for exam?:cough History of cancer?:u Surgeries, chemotherapy, or radiation?:u Type of Exam?:Initial Additional signs and symptoms?:congestion x 1 month XR Chest PA and Lateral and AP lateral-decubituson 02-05-2025 There is no acute cardiopulmonary process. Workstation ID: [id number] [facility] EXAMINATION: XR CHEST AP/PA AND LAT HISTORY: [...] the right upper abdomen suggesting a cholecystectomy. [facility] Мария Stokes MD - 02/05/2025 EXAMINATION: XR [...] no acute cardiopulmonary process. Workstation ID: [id number] [facility] Radiology Study observation (narrative) [facility] XR Chest PA and Lateral and AP lateral-decubitusOrdered By: Мария Stokes on 02-05-2025 [facility] Work Phone: Urinalysis w/ Microon 2024 Bilirubin, SemiQt,Ur Negative Normal NEG [facility] Comment on above: Performed By: #### U AMIC #### [facility] [address] [place] [address] [place] [address] Flotation Tank Operator: Christian Muir MD Blood, Urine Negative Normal NEG [facility] Comment on above: Performed By: #### U AMIC #### [facility] [address] [place] [address] Flotation Tank Operator: Christian Muir MD Clarity (U) Clear Normal CLEAR [facility] Comment on above: Performed By: #### U AMIC #### [facility] [address] [place] [address] Flotation Tank Operator: Christian Muir MD Color (U) Yellow Normal YEL [facility] Comment on above: Performed By: #### U AMIC #### [facility] [address] [place], [place] [id number] Flotation Tank Operator: Christian Muir MD Epithelial cells LM Ql (Urine sed) 2 TO 5 Normal 0-25 [facility] Comment on above: Performed By: #### U AMIC #### [facility] [address] [place], [place] [id number] Flotation Tank Operator: Christian Muir MD Glucose Ql (U) Negative Normal NEG [facility] Comment on above: Performed By: #### U AMIC #### [address] [place], [place] [id number] Flotation Tank Operator: Christian Muir MD Ketones Ql (U) Negative Normal NEG [facility] Comment on above: Performed By: #### U AMIC #### [facility] [address] [place], [place] [phone] Flotation Tank Operator: Christian Muir MD Leukocyte esterase Test strip Ql (U) Negative Normal NEG [facility] Comment on above: Performed By: #### U AMIC #### [address] [place], [place] [id number] Flotation Tank Operator: Christian Muir MD Nitrite,Ur Negative Normal NEG [facility] Comment on above: Performed By: #### U AMIC #### [facility] [address] [place], [place] [id number] Flotation Tank Operator: Christian Muir MD PH,Ur 6.0 Normal 5.0-9.0 [facility] Comment on above: Performed By: #### U AMIC #### [facility] [address] [place] [address] Flotation Tank Operator: Christian Muir MD Protein Ql (U) Negative Normal NEG [facility] Comment on above: Performed By: #### U AMIC #### [facility] [address] [place], [place] [id number] Flotation Tank Operator: Christian Muir MD Spec. Ambler,Ur 1.020 Normal 1.010-1.02 0 [facility] Comment on above: Performed By: #### U AMIC #### [facility] [address] [place], [place] [address] Flotation Tank Operator: Christian Muir MD Urine RBC's 0 TO 2 Normal 0-2 [facility] Comment on above: Performed By: #### U AMIC #### [facility] [address] [place] [phone] Flotation Tank Operator: Christian Muir MD Urine WBC's 0 TO 2 Normal 0-5 [facility] Comment on above: Performed By: #### U AMIC #### [facility] [address] [place] [id number] Flotation Tank Operator: Christian Muir MD Urobilinogen,Ur Normal Normal 0.0-1.0 [facility] Comment on above: Performed By: #### U AMIC #### [facility] [address] [place] [id number] Flotation Tank Operator: Christian Muir MD Urinalysis with Microscopico n 12-22-2024 Bilirubin Ql (U) Negative NEGATIVE [facility] Clarity (U) Clear Clear [facility] Color (U) Yellow Yellow [facility] Epithelial cells LM.HPF (Urine sed) [#/Area] 2 TO 5 Bon [facility] Glucose Test strip (U) [Mass/Vol] Negative NEGATIVE mg/dL [facility] Hemoglobin Auto test strip Ql (U) Negative NEGATIVE [facility] Ketones (U) [Mass/Vol] Negative NEGATIVE mg/dL [facility] Leukocyte esterase Test strip Ql (U) Negative NEGATIVE [facility] Nitrite Ql (U) Negative NEGATIVE [facility] pH (U) 6 [pH] 5.0 - 9.0 [facility] Protein (U) [Mass/Vol] Negative NEGATIVE mg/dL [facility] RBC LM.HPF (Urine sed) [#/Area] 0 TO 2 [facility] Specific gravity (U) [Rel density] 1.02 1.010 - 1.020 [facility] Urobilinogen Qn (U) Normal 0.0 - 1. 0 EU/dL [facility] WBC LM.HPF (Urine sed) [#/Area] 0 TO 2 [facility] Appearance of UrineOrdered B y: Nuvia Sanchez on 09-10-2024 Appearance (U) Urine appearance Clear [facility] Bacteria [Presence] in Urine by AutomatedOrdered By: Nuvia Sanchez on 09-10-2024 Bacteria Auto Ql (U) Bacteria [Presence] in Urine by Automated None Seen [facility] Bilirubin Test strip Ql (U)O rdered By: Nuvia Sanchez on 09-10-2024 Bilirubin Ql (U) Bilirubin.total [Pre sence] in Urine by Test strip Negative [facility] Color Auto (U)Ordered By: Rajnai Patel on 09-10-2024 Color (U) Color of Urine by Auto [facility] 0 09-10-2024 Appearance (U) Clear Normal Clear [facility] Comment on above: Order Comment: Name Collection Type:: Clean-Voided Midstream Performed By: #### A DDONUAPLUS #### [facility] [address] [place] [address] [place] Bacteria,Urine Rare Normal None Seen [facility] Comment on above: Order Comment: Name Collection Type:: Clean-Voided Midstream Performed By: #### A DDONUAPLUS #### [facility] [address] [place] [id number] [place] Bilirubin,Urine Negative Normal Negative [facility] Comment on above: Order Comment: Name Collection Type:: Clean-Voided Midstream Performed By: #### A DDONUAPLUS #### [facility] [address] [place] [id number] [place] Color (U) Yellow Normal Yellow [facility] Comment on above: Order Comment: Name Collection Type:: Clean-Voided Midstream Performed By: #### A DDONUAPLUS #### [address] Glucose Ql (U) Normal Normal Normal [facility] Comment on above: Order Comment: Name Collection Type:: Clean-Voided Midstream Performed By: #### A DDONUAPLUS #### [place] [address] [place] Hyaline Casts,Urine None Normal 0-8 [facility] Comment on above: Order Comment: Name Collection Type:: Clean-Voided Midstream Performed By: #### A DDONUAPLUS #### [address] Ketones Ql (U) Negative Normal Negative [facility] Comment on above: Order Comment: Name Collection Type:: Clean-Voided Midstream Performed By: #### A DDONUAPLUS #### [address] Leukocyte esterase Test strip Ql (U) Negative Normal Negative [facility] Comment on above: Order Comment: Name Collection Type:: Clean-Voided Midstream Performed By: #### A DDONUAPLUS #### [place] [address] [place] Mucus,Urine Rare Normal [facility] Comment on above: Order Comment: Name Collection Type:: Clean-Voided Midstream Result Comment: PERF ORMED BY: [place] [address] PATHOLOGIST SALES PROMOTION DIRECTOR DOMINICK MONTIEL M.D. Performed By: #### A DDONUAPLUS #### [place] [address] [place] Nitrite,Urine Negative Normal Negative [facility] Comment on above: Order Comment: Name Collection Type:: Clean-Voided Midstream Performed By: #### A DDONUAPLUS #### [place] [address] [place] Occult Blood,Urine Negative Normal Negative [facility] Comment on above: Order Comment: Name Collection Type:: Clean-Voided Midstream Performed By: #### A DDONUAPLUS #### [address] pH (U) 5.0 [pH] Normal 5.0-9.0 [facility] Comment on above: Order Comment: Name Collection Type:: Clean-Voided Midstream Performed By: #### A DDONUAPLUS #### [place] [address] [place] Protein,Urine Negative Normal Negative [facility] Comment on above: Order Comment: Name Collection Type:: Clean-Voided Midstream Performed By: #### A DDONUAPLUS #### [address] RBC,Urine 3-4 Normal 0-4 [facility] Comment on above: Order Comment: Name Collection Type:: Clean-Voided Midstream Performed By: #### A DDONUAPLUS #### [address] Specificy [place],Urine 1.018 Normal 1.001-1.03 0 [facility] Comment on above: Order Comment: Name Collection Type:: Clean-Voided Midstream Performed By: #### A DDONUAPLUS #### [place] [address] [place] Squamous Epithelial Cell,Urine 1-2 Normal 0-2 [facility] Comment on above: Order Comment: Name Collection Type:: Clean-Voided Midstream Performed By: #### A DDONUAPLUS #### [place] [address] [place] Uric Acid Crystals,Urine 1+ Normal [facility] Comment on above: Order Comment: Name Collection Type:: Clean-Voided Midstream Performed By: #### A DDONUAPLUS #### [place] [address] [place] Urobilinogen,Urine Normal Normal Normal [facility] Comment on above: Order Comment: Name Collection Type:: Clean-Voided Midstream Performed By: #### A DDONUAPLUS #### [facility] [address] [place] [address] [place] WBC,Urine 1-2 Normal 0-4 [facility] Comment on above: Order Comment: Name Collection Type:: Clean-Voided Midstream Performed By: #### A DDONUAPLUS #### [facility] [address] Epithelial cells.squamous [# /area] in Urine sediment by Automated countOrdered By: Nuvia Sanchez on 09-10-2024 Epithelial cells.squamous Auto (Urine sed) [#/Area] Epithelial cells.squamous [#/area] in Urine sediment by Automated count 0-2 [facility] Erythrocytes [#/area] in Uri ne sediment by Automated countOrdered By: Nuvia Sanchez on 09-10-2024 RBC Auto (Urine sed) [#/Area] Erythrocytes [#/area] in Urine sediment by Automated count 0-4 [facility] Glucose [Mass/volume] in Uri ne by Test stripOrdered By: Nuvia Sanchez on 09-10-2024 Glucose Test strip (U) [Mass/Vol] Glucose [Mass/volume] in Urine by Test strip Normal [facility] Hemoglobin Test strip Ql (U) Ordered By: Nuvia Sanchez on 09-10-2024 Hemoglobin Ql (U) Hemoglobin [Presence ] in Urine by Test strip Negative [facility] Hyaline casts [#/area] in Ur ine sediment by Automated countOrdered By: Nuvia Sanchez on 09-10-2024 Hyaline casts Auto (Urine sed) [#/Area] Hyaline casts [#/area] in Urine sediment by Automated count 0-8 [facility] Ketones Test strip Ql (U)Ord ered By: Nuvia Sanchez on 09-10-2024 Ketones Ql (U) Ketones [Presence] i n Urine by Test strip Negative [facility] Leukocyte esterase [Presence ] in Urine by Test stripOrdered By: Nuvia Sanchez on 09-10-2024 Leukocyte esterase Test strip Ql (U) Leukocyte esterase [Presence] in Urine by Test strip Negative [facility] Leukocytes [#/area] in Urine sediment by Automated countOrdered By: Nuvia Sanchez on 09-10-2024 WBC Auto (Urine sed) [#/Area] Leukocytes [#/area] in Urine sediment by Automated count 0-4 [facility] Mucus [Presence] in Urine by AutomatedOrdered By: Nuvia Sanchez on 09-10-2024 Mucus Auto Ql (U) Mucus [Presence] in Urine by Automated [facility] Nitrite Test strip Ql (U)Ord ered By: Nuvia Sanchez on 09-10-2024 Nitrite Ql (U) Nitrite [Presence] i n Urine by Test strip Negative [facility] Protein Test strip (U) [Mass /Vol]Ordered By: Nuvia Sanchez on 09-10-2024 Protein (U) [Mass/Vol] Protein [Mass/volume] in Urine by Test strip Negative [facility] Specific gravity Test strip (U) [Rel density]Ordered By: Nuvia Sanchez on 09-10-2024 Specific gravity (U) [Rel density] Specific gravity of Urine by Test strip 1.001-1.03 0 [facility] Urate crystals [Presence] in Urine sediment by Computer assisted methodOrdered By: Nuvia Sanchez on 09-10-2024 Urate crystals [Presence] in Urine sediment by Computer assisted method Urate crystals [Presence] in Urine sediment by Computer assisted method [facility] Urobilinogen Test strip (U) [Mass/Vol]Ordered By: Nuvia Sanchez on 09-10-2024 Urobilinogen (U) [Mass/Vol] Urobilinogen [Mass/volume] in Urine by Test strip Normal [facility] pH Test strip (U)Ordered By: Nuvia Sanchez on 09-10-2024 pH (U) pH of Urine by Test strip 5.0-9.0 [facility] XR CHEST (2 VW)on 08-30-2024 XR CHEST (2 VW) EXAM: XR CHEST (2 VW ) HISTORY: Essential hypertension COMPARISON: 08/20/2023 TECHNIQUE: 2 views FINDINGS: The heart and mediastinum are unremarkable. Lungs are clear. No focal infiltrates are seen. No effusions are noted. IMPRESSION: No acute cardiopulmonary pathology. Interpreted by: Ora Macias MD Signed by: Ora Macias MD 08/30/24 Final result Normal [facility] Cult,Urineon 08-29-2024 Cult,Urine Specimen Description .CLEAN CATCH [...] Tobramycin <=1 SUSCEPTIBLE Trimethoprim/Sulfa <=20 SUSCEPTIBLE Susceptible [facility] Comment on above: Performed By: #### F ROYAL #### [facility] [address] [place] [address] [employer]ot[employer] Operator: Christian Muir MD CBC with Auto Differentialon 08-28-2024 Basophils (Bld) [#/Vol] 0.01 10*3/uL [facility] Basophils/100 WBC (Bld) 0 % 0 - 2 % [facility] Eosinophils (Bld) [#/Vol] 0.09 10*3/uL [facility] Eosinophils/100 WBC (Bld) 2 % 0 - 5 % [facility] Erythrocyte distribution width (RBC) [Ratio] 13.8 % 12.1 - 15.2 % [facility] Hematocrit (Bld) [Volume fraction] 37.7 % 36.0 - 46.0 % [facility] Hemoglobin (Bld) [Mass/Vol] 12.4 g/dL 12.0 - 16.0 g/dL [facility] Immature granulocytes (Bld) [#/Vol] 0.06 10*3/uL [facility] Immature granulocytes/100 WBC (Bld) 1 % 0 - 5 % [facility] Interpretation and review of laboratory results Abnormal [facility] Lymphocytes/100 WBC (Bld) 28 % 15 - 40 % [facility] Lymphocytes/100 WBC (Bld) 1.39 % [facility] MCH (RBC) [Entitic mass] 31.2 pg 26.0 - 34.0 pg [facility] MCHC (RBC) [Mass/Vol] 32.9 g/dL 31.0 - 37.0 g/dL [facility] MCV (RBC) [Entitic vol] 95.0 fL 80.0 - 100.0 fL [facility] Monocytes/100 WBC (Bld) 10 % High 4 - 8 % [facility] Monocytes/100 WBC (Bld) 0.49 % [facility] Neutrophils/100 WBC (Bld) 59 % 47 - 75 % [facility] Platelet mean volume (Bld) [Entitic vol] 9.5 fL 6.0 - 12.0 fL [facility] Platelets (Bld) [#/Vol] 213 10*3/uL [facility] RBC (Bld) [#/Vol] 3.97 10*6/uL Low 4.00 - 5.20 m/uL [facility] Segmented neutrophils/100 WBC (Bld) 2.99 % [facility] WBC other (Bld) [#/Vol] 5.0 [facility] CBC with Diffon 08-28-2024 Abs. Basophil 0.01 k/uL Normal 0.00-0.20 [facility] Comment on above: Performed By: #### C OVRB #### [facility] [address] [place] [address] [employer] Operator: Christian Muir MD Abs.Imm.Granulocyte 0.06 k/uL Normal 0.00-0.30 [facility] Comment on above: Performed By: #### C OVRB #### [facility] [address] [place] [address] [employer] Operator: Christian Muir MD Abs.Neutrophil (Seg) 2.99 k/uL Normal 2.5-7.0 [facility] Comment on above: Performed By: #### C OVRB #### [facility] [address] [place] [address] [employer] Operator: Christian Muir MD Basophils/100 WBC (Bld) 0 % Normal 0-2 [facility] Comment on above: Performed By: #### C OVRB #### [facility] [address] [place] [address] [employer] Operator: Christian Muir MD Eosinophils (Bld) [#/Vol] 0.09 10*3/uL Normal 0.00-0.40 [facility] Comment on above: Performed By: #### C OVRB #### [facility] [address] [place] [address] [employer] Operator: Christian Muir MD Eosinophils/100 WBC (Bld) 2 % Normal 0-5 [facility] Comment on above: Performed By: #### C OVRB #### [facility] [address] [place] [address] [employer] Operator: Christian Muir MD Erythrocyte distribution width (RBC) [Ratio] 13.8 % Normal 12.1-15.2 [facility] Comment on above: Performed By: #### C OVRB #### [facility] [address] [place] [address] [employer] Operator: Christian Muir MD Hematocrit (Bld) [Volume fraction] 37.7 % Normal 36.0-46.0 [facility] Comment on above: Performed By: #### C OVRB #### [facility] [address] [place] [address] [employer] Operator: Christian Muir MD Hemoglobin (Bld) [Mass/Vol] 12.4 g/dL Normal 12.0-16.0 [facility] Comment on above: Performed By: #### C OVRB #### [facility] [address], [place] [phone] [employer] Operator: Christian Muir MD Immature granulocytes/100 WBC (Bld) 1 % Normal 0-5 [facility] Comment on above: Performed By: #### C OVRB #### [facility] [address], [place] [phone] [employer] Operator: Christian Muir MD Lymphocytes (Bld) [#/Vol] 1.39 10*3/uL Normal 1.00-4.80 [facility] Comment on above: Performed By: #### C OVRB #### [facility] [address], [place] [phone] [employer] Operator: Christian Muir MD Lymphocytes/100 WBC (Bld) 28 % Normal 15-40 [facility] Comment on above: Performed By: #### C OVRB #### [facility] [address], [place] [phone] [employer] Operator: Christian Muir MD MCH (RBC) [Entitic mass] 31.2 pg Normal 26.0-34.0 [facility] Comment on above: Performed By: #### C OVRB #### [facility] [address] [place] [address] [employer] Operator: Christian Muir MD MCHC (RBC) [Mass/Vol] 32.9 g/dL Normal 31.0-37.0 [facility] Comment on above: Performed By: #### C OVRB #### [facility] [address], [place] [phone] [employer] Operator: Christian Muir MD MCV (RBC) [Entitic vol] 95.0 fL Normal 80.0-100.0 [facility] Comment on above: Performed By: #### C OVRB #### [facility] [address], [place] [phone] [employer] Operator: Christian Muir MD Monocytes (Bld) [#/Vol] 0.49 10*3/uL Normal 0.00-1.00 [facility] Comment on above: Performed By: #### C OVRB #### [facility] [address], [place] [phone] [employer] Operator: Christian Muir MD Monocytes/100 WBC (Bld) 10 % High 4-8 [facility] Comment on above: Performed By: #### C OVRB #### [facility] [address], [place] [phone] [employer] Operator: Christian Muir MD Neutrophil (Seg) 59 % Normal 47-75 [facility] Comment on above: Performed By: #### C OVRB #### [facility] [address], [place] [phone] [employer] Operator: Christian Muir MD Platelet mean volume (Bld) [Entitic vol] 9.5 fL Normal 6.0-12.0 [facility] Comment on above: Performed By: #### C OVRB #### [facility] [address], [place] [phone] [employer] Operator: Christian Muir MD Platelets (Bld) [#/Vol] 213 10*3/uL Normal 140-450 [facility] Comment on above: Performed By: #### C OVRB #### [facility] [address], [place] [phone] [employer] Operator: Christian Muir MD RBC (Bld) [#/Vol] 3.97 10*6/uL Low 4.00-5.20 [facility] Comment on above: Performed By: #### C OVRB #### [facility] [address], [place] [phone] [employer] Operator: Christian Muir MD WBC (Bld) [#/Vol] 5.0 10*3/uL Normal 3.5-11.0 [facility] Comment on above: Performed By: #### C OVRB #### [facility] [address], [place] [phone] [employer] Operator: Christian Muir MD Comp Metabolic Profon 2024 Albumin [Mass/Vol] 4.0 g/dL Normal 3.5-5.2 [facility] Comment on above: Performed By: #### C OVRB #### [facility] [address] [place] [address] [employer] Operator: Christian Muir MD Albumin/Glob Ratio 1.6 Normal 1.0-2.5 [facility] Comment on above: Performed By: #### C OVRB #### [facility] [address] [place] [address] [employer] Operator: Christian Muir MD Alkaline Phos 58 U/L Normal 35-104 [facility] Comment on above: Performed By: #### C OVRB #### [facility] [address], [place] [phone] [employer] Operator: Christian Muir MD ALT [Catalytic activity/Vol] 11 U/L Normal 5-33 [facility] Comment on above: Performed By: #### C OVRB #### [facility] [address], [place] [phone] [employer] Operator: Christian Muir MD Anion gap [Moles/Vol] 11 mmol/L Normal 9-17 [facility] Comment on above: Performed By: #### C OVRB #### [facility] [address], [place] [phone] [employer] Operator: Christian Muir MD AST [Catalytic activity/Vol] 17 U/L Normal <32 [facility] Comment on above: Performed By: #### C OVRB #### [facility] [address], [place] [phone] [employer] Operator: Christian Muir MD Bilirubin [Mass/Vol] 0.5 mg/dL Normal 0.3-1.2 [facility] Comment on above: Performed By: #### C OVRB #### [facility] [address], [place] [phone] [employer] Operator: Christian Muir MD Calcium [Mass/Vol] 9.4 mg/dL Normal 8.6-10.4 [facility] Comment on above: Performed By: #### C OVRB #### [facility] [address], [place] [phone] [employer] Operator: Christian Muir MD Chloride [Moles/Vol] 105 mmol/L Normal 98-107 [facility] Comment on above: Performed By: #### C OVRB #### [facility] [address], [place] [phone] [employer] Operator: Christian Muir MD CO2 [Moles/Vol] 26 mmol/L Normal 20-31 [facility] Comment on above: Performed By: #### C OVRB #### [facility] [address], [place] [phone] [employer] Operator: Christian Muir MD Creatinine [Mass/Vol] 1.3 mg/dL High 0.5-0.9 [facility] Comment on above: Performed By: #### C OVRB #### [facility] [address], [place] [phone] [employer] Operator: Christian Muir MD GFR/1.73 sq M.predicted among non-blacks MDRD (S/P/Bld) [Vol rate/Area] 42 mL/min/{1.73_m2} Low >60 [facility] Comment on above: Result Comment: These [...] secretion. Performed By: #### C OVRB #### [facility] [address], [place] [phone] [employer] Operator: Christian Muir MD Glucose [Mass/Vol] 96 mg/dL Normal 70-99 [facility] Comment on above: Performed By: #### C OVRB #### [facility] [address], [place] [phone] [employer] Operator: Christian Muir MD Potassium [Moles/Vol] 4.2 mmol/L Normal 3.7-5.3 [facility] Comment on above: Performed By: #### C OVRB #### [facility] [address], [place] [phone] [employer] Operator: Christian Muir MD Protein [Mass/Vol] 6.5 g/dL Normal 6.4-8.3 [facility] Comment on above: Performed By: #### C OVRB #### [facility] [address], [place] [phone] [employer] Operator: Christian Muir MD Sodium [Moles/Vol] 142 mmol/L Normal 135-144 [facility] Comment on above: Performed By: #### C OVRB #### [facility] [address] [place] [address] [employer] Operator: Christian Muir MD Urea nitrogen [Mass/Vol] 28 mg/dL High 8-23 [facility] Comment on above: Performed By: #### C OVRB #### [facility] [address], [place] [phone] [employer] Operator: Christian Muir MD Rust Metabolic Pane [facility] 08-28-2024 Albumin [Mass/Vol] 4.0 g/dL 3.5 - 5.2 g/dL [facility] Albumin/Globulin [Mass ratio] 1.6 {ratio} 1.0 - 2.5 [facility] ALP [Catalytic activity/Vol] 58 U/L 35 - 104 U/L [facility] ALT [Catalytic activity/Vol] 11 U/L 5 - 33 U/L [facility] Anion gap [Moles/Vol] 11 mmol/L 9 - 17 mmol/L [facility] AST [Catalytic activity/Vol] 17 U/L NINF - 32 U/L [facility] Bilirubin [Mass/Vol] 0.5 mg/dL 0.3 - 1 .2 mg/dL [facility] Calcium [Mass/Vol] 9.4 mg/dL 8.6 - 10. 4 mg/dL [facility] Chloride [Moles/Vol] 105 mmol/L 98 - 10 7 mmol/L [facility] CO2 [Moles/Vol] 26 mmol/L 20 - 31 mmol/L [facility] Creatinine [Mass/Vol] 1.3 mg/dL High 0.5 - 0.9 mg/dL [facility] Est, Glom Filt Rate 42 Low - PINF [facility] Comment on above: These results are [...] [Mass/Vol] 96 mg/dL 70 - 99 mg/dL [facility] Interpretation and review of laboratory results Abnormal [facility] Potassium [Moles/Vol] 4.2 mmol/L 3.7 - 5.3 mmol/L [facility] Protein [Mass/Vol] 6.5 g/dL 6.4 - 8.3 g/dL [facility] Sodium [Moles/Vol] 142 mmol/L 135 - 144 mmol/L [facility] Urea nitrogen [Mass/Vol] 28 mg/dL High 8 - 23 mg/dL [facility] Lipid Panelon 08-28-2024 Cholesterol [Mass/Vol] 145 mg/dL 0 - 199 mg/dL [facility] Comment on above: Cholesterol Guidelines: <200 Desirable 200-240 Borderline >240 Undesirable Cholesterol in HDL [Mass/Vol] 52 mg/dL 40 - PINF mg/dL [facility] Comment on above: HDL Guidelines: <40 Undesirable 40-59 Borderline >59 Desirable Cholesterol in LDL [Mass/Vol] 74 mg/dL 0 - 100 mg/dL [facility] Comment on above: LDL Guidelines: <100 Desirable 100-129 Near to/above Desirable 130-159 Borderline >159 Undesirable Direct (measured) LDL and calculated LDL are not interchangeable tests. Cholesterol in VLDL [Mass/Vol] 19 mg/dL 1 - 30 mg/dL [facility] Cholesterol.total/Cho lesterol in HDL [Mass ratio] 2.8 {ratio} [facility] Triglyceride [Mass/Vol] 94 mg/dL NINF - 150 mg/dL [facility] Comment on above: Triglyceride Guidelines: <150 Desirable 150-199 Borderline 200-499 High >499 Very high Based on AHA Guidelines for fasting triglyceride, March 2012. Lipid Profileon 08-28-2024 Cholesterol [Mass/Vol] 145 mg/dL Normal 0-199 [facility] Comment on above: Result Comment: Cholesterol Guidelines: <200 Desirable 200-240 Borderline >240 Undesirable Performed By: #### C OVRB #### [facility] [address] [facility] [place] [address] [employer] Operator: Christian Muir MD Cholesterol in HDL [Mass/Vol] 52 mg/dL Normal >40 [facility] Comment on above: Result Comment: HDL Guidelines: <40 Undesirable 40-59 Borderline >59 Desirable Performed By: #### C OVRB #### [facility] [address] [facility] [place] [address] [employer] Operator: Christian Muir MD Cholesterol in LDL [Mass/Vol] 74 mg/dL Normal 0-100 [facility] Comment on above: Result Comment: LDL Guidelines: <100 Desirable 100-129 Near to/above Desirable 130-159 Borderline >159 Undesirable Direct (measured) LDL and calculated LDL are not interchangeable tests. Performed By: #### C OVRB #### [facility] [address] [place] [address] [employer] Operator: Christian Muir MD Cholesterol in VLDL [Mass/Vol] 19 mg/dL Normal 1-30 [facility] Comment on above: Performed By: #### C OVRB #### [facility] [address] [place] [address] [employer] Operator: Christian Muir MD Cholesterol.total/Cho lesterol in HDL [Mass ratio] 2.8 {ratio} Normal [facility] Comment on above: Performed By: #### C OVRB #### [facility] [address] [place] [address] [employer] Operator: Christian Muir MD Triglyceride [Mass/Vol] 94 mg/dL Normal <150 [facility] Comment on above: Result Comment: Triglyceride Guidelines: <150 Desirable 150-199 Borderline 200-499 High >499 Very high Based on AHA Guidelines for fasting triglyceride, March 2012. Performed By: #### C OVRB #### [facility] [address] [place] [address] [employer] Operator: Christian Muir MD Magnesiumon 08-28-2024 Magnesium [Mass/Vol] 2.2 mg/dL 1.6 - 2 .6 mg/dL [facility] Magnesium [Mass/Vol] 2.2 mg/dL Normal 1.6-2.6 [facility] Comment on above: Performed By: #### C OVRB #### [facility] [address] [place] [address] [employer]ot[employer] Operator: Christian Muir MD No Panel Informationon 08-28 [facility] TSH w/reflex to FT4on 2024 Thyroid Stim. Horm. 2.59 uIU/mL Normal 0.27-4.20 [facility] Comment on above: Performed By: #### C OVRB #### [facility] [address] [place] [address] [employer] Operator: Christian Muir MD TSH with Reflexon 08-28-2024 TSH Qn 2.59 m[IU]/L [facility] Vitamin D 25 Hydroxyon 08-28 25-hydroxyvitamin D3 [Mass/Vol] 89.9 ng/mL 30.0 - 100.0 ng/mL [facility] Comment on above: Reference Range: Vitamin D status Range Deficiency <20 ng/mL Mild Deficiency 20-30 ng/mL Sufficiency 30-100 ng/mL Toxicity >100 ng/mL Vitamin D 25 OHon 08-28-2024 Vitamin D 25 OH 89.9 ng/mL Normal 30.0-100.0 [facility] Comment on above: Result Comment: Reference Range: Vitamin D status Range Deficiency <20 ng/mL Mild Deficiency 20-30 ng/mL Sufficiency 30-100 ng/mL Toxicity >100 ng/mL Performed By: #### C OVRB #### [facility] [address] [place] [address] [employer]ot[employer] Operator: Christian Muir MD Alanine aminotransferase [En zymatic activity/volume] in Serum or PlasmaOrdered By: Obie Hylton on 08-11-2024 ALT [Catalytic activity/Vol] Alanine aminotransferase [Enzymatic activity/volume] in Serum or Plasma [facility] Albumin [Mass/volume] in Ser um or Plasma by Bromocresol green (BCG) dye binding methoOrdered By: Obie Hylton on 08-11-2024 Albumin BCG dye [Mass/Vol] Albumin [Mass/volume] in Serum or Plasma by Bromocresol green (BCG) dye binding metho 3.5-5.7 [facility] Alkaline phosphatase [Enzyma tic activity/volume] in Serum or PlasmaOrdered By: Obie Hylton on 08-11-2024 ALP [Catalytic activity/Vol] Alkaline phosphatase [Enzymatic activity/volume] in Serum or Plasma 34-104 [facility] Appearance of UrineOrdered B y: Obie Hylton on 08-11-2024 Appearance (U) Urine appearance [facility] Aspartate aminotransferase [ Enzymatic activity/volume] in Serum or PlasmaOrdered By: Obie Hylton on 08-11-2024 AST [Catalytic activity/Vol] Aspartate aminotransferase [Enzymatic activity/volume] in Serum or Plasma 13-39 [facility] Bacteria [Presence] in Urine by AutomatedOrdered By: Obie Hylton on 08-11-2024 Bacteria Auto Ql (U) Bacteria [Presence] in Urine by Automated None Seen [facility] Basophils Auto (Bld) [#/Vol] Ordered By: Obie Hylton on 08-11-2024 Basophils (Bld) [#/Vol] Automated basophil count 0.0-0.2 [facility] Basophils/100 WBC Auto (Bld) Ordered By: Obie Hylton on 08-11-2024 Basophils/100 WBC (Bld) Automated basophil % . [facility] Bilirubin Test strip Ql (U)O rdered By: Obie Hylton on 08-11-2024 Bilirubin Ql (U) Bilirubin.total [Pre sence] in Urine by Test strip Negative [facility] Bilirubin.total [Mass/volume ] in Serum or PlasmaOrdered By: Obie Hylton on 08-11-2024 Bilirubin [Mass/Vol] Bilirubin.total [Mass/volume] in Serum or Plasma 0.3-1.0 [facility] Calcium [Mass/volume] in Ser um or PlasmaOrdered By: Obie Hylton on 08-11-2024 Calcium [Mass/Vol] Calcium [Mass/volume ] in Serum or Plasma 8.6-10.3 [facility] Carbon dioxide, total [Moles /volume] in Serum or PlasmaOrdered By: Obie Hylton on 08-11-2024 CO2 [Moles/Vol] Carbon dioxide, tota l [Moles/volume] in Serum or Plasma 21.0-31.0 [facility] Chloride [Moles/volume] in S liat or PlasmaOrdered By: Obie Hylton on 08-11-2024 Chloride [Moles/Vol] Chloride [Moles/vol ume] in Serum or Plasma 98-107 [facility] Color Auto (U)Ordered By: Cindy ttjesus Hylton on 08-11-2024 Color (U) [facility] Complement [facility]on 08-11-2024 Complement C3 130 mg/dL Normal 82-167 [facility] Comment on above: Order Comment: Speci men Comment: A duplicate report has been generated due to demographic Specimen Comment: updates. Performed By: #### C 4, C3, CH50 #### [facility] , #### CBC, ESR, ADDONUAPLUS, CMP #### [facility] [address] [place] [address] Complement C4on 08-11-2024 Complement C4 23 mg/dL Normal 12-38 [facility] Comment on above: Order Comment: Speci men Comment: A duplicate report has been generated due to demographic Specimen Comment: updates. Result Comment: Perf ormed at: [facility] [address] [id number] Flotation Tank Operator: Usman Draper PhD, Phone: [phone] PERFORMED BY: [place] [address] PATHOLOGIST [employer] DIRECTOR DOMINICK MONTIEL M.D. Performed By: #### C 4, C3, CH50 #### [facility] , #### CBC, ESR, ADDONUAPLUS, CMP #### [address] Complement Total (CH50)on Complement Total (CH50) 54 Normal >41 [facility] Comment on above: Order [...] determine out of range values. Performed at: [facility] [address] [id number] Flotation Tank Operator: Usman Draper PhD, Phone: [phone] PERFORMED BY: [place] [address] PATHOLOGIST SALES [employer]OMOT[employer] DIRECTOR DOMINICK MONTIEL M.D. Performed By: #### C 4, C3, CH50 #### [facility] , #### CBC, ESR, ADDONUAPLUS, CMP #### [address] Complete Blood Count Auto Di ffon 08-11-2024 Basophils (Bld) [#/Vol] 0.0 10*3/uL Normal 0.0-0.2 [facility] Comment on above: Performed By: #### E SR, ADDONUAPLUS, CBC, CMP #### [address] #### C3, C4, CH50 #### [facility] , Basophils/100 WBC (Bld) 0.3 % Normal . [facility] Comment on above: Performed By: #### E SR, ADDONUAPLUS, CBC, CMP #### [address] #### C3, C4, CH50 #### [facility] , Eosinophils (Bld) [#/Vol] 0.1 10*3/uL Normal 0.0-0.45 [facility] Comment on above: Performed By: #### E SR, ADDONUAPLUS, CBC, CMP #### [address] #### C3, C4, CH50 #### [facility] , Eosinophils/100 WBC (Bld) 1.9 % Normal . [facility] Comment on above: Performed By: #### E SR, ADDONUAPLUS, CBC, CMP #### [address] #### C3, C4, CH50 #### [facility] , Erythrocyte distribution width (RBC) [Ratio] 14.6 % Normal 11.9-15.3 [facility] Comment on above: Performed By: #### E SR, ADDONUAPLUS, CBC, CMP #### [address] #### C3, C4, CH50 #### [facility] , Hematocrit (Bld) [Volume fraction] 36.0 % Normal 34.0-46.4 [facility] Comment on above: Performed By: #### E SR, ADDONUAPLUS, CBC, CMP #### [place] [address] [place] #### C3, C4, CH50 #### [facility] , Hemoglobin (Bld) [Mass/Vol] 12.3 g/dL Normal 11.8-15.4 [facility] Comment on above: Performed By: #### E SR, ADDONUAPLUS, CBC, CMP #### [place] [address] [place] #### C3, C4, CH50 #### [facility] , Lymphocytes (Bld) [#/Vol] 1.2 10*3/uL Normal 1.00-4.8 [facility] Comment on above: Performed By: #### E SR, ADDONUAPLUS, CBC, CMP #### [address] #### C3, C4, CH50 #### [facility] , Lymphocytes/100 WBC (Bld) 24.1 % Normal . [facility] Comment on above: Performed By: #### E SR, ADDONUAPLUS, CBC, CMP #### [place] [address] [place] #### C3, C4, CH50 #### [facility] , MCH (RBC) [Entitic mass] 31.9 pg Normal 24.7-34.3 [facility] Comment on above: Performed By: #### E SR, ADDONUAPLUS, CBC, CMP #### [place] [address] [place] #### C3, C4, CH50 #### [facility] , MCV (RBC) [Entitic vol] 93.7 fL Normal 80-100 [facility] Comment on above: Performed By: #### E SR, ADDONUAPLUS, CBC, CMP #### [place] [address] [place] #### C3, C4, CH50 #### [facility] , Mean Corpuscular HGB Conc 34.0 g/dL Normal 32.0-35.0 [facility] Comment on above: Performed By: #### E SR, ADDONUAPLUS, CBC, CMP #### [address] #### C3, C4, CH50 #### [facility] , Monocytes (Bld) [#/Vol] 0.4 10*3/uL Normal 0.0-0.8 [facility] Comment on above: Performed By: #### E SR, ADDONUAPLUS, CBC, CMP #### [place] [address] [place] #### C3, C4, CH50 #### [facility] , Monocytes/100 WBC (Bld) 7.7 % Normal . [facility] Comment on above: Performed By: #### E SR, ADDONUAPLUS, CBC, CMP #### [place] [address] [place] #### C3, C4, CH50 #### [facility] , Neutrophils (Bld) [#/Vol] 3.4 10*3/uL Normal 1.8-7.7 [facility] Comment on above: Performed By: #### E SR, ADDONUAPLUS, CBC, CMP #### [place] [address] [place] #### C3, C4, CH50 #### [facility] , Neutrophils/100 WBC (Bld) 66.0 % Normal . [facility] Comment on above: Performed By: #### E SR, ADDONUAPLUS, CBC, CMP #### [address] #### C3, C4, CH50 #### [facility] , NRBC% 0.1 /100{WBC} Normal 0-0.5 [facility] Comment on above: Performed By: #### E SR, ADDONUAPLUS, CBC, CMP #### [place] [address] [place] #### C3, C4, CH50 #### [facility] , Platelet mean volume (Bld) [Entitic vol] 8.4 fL Normal 6.3-10.7 [facility] Comment on above: Performed By: #### E SR, ADDONUAPLUS, CBC, CMP #### [address] #### C3, C4, CH50 #### [facility] , Platelets (Bld) [#/Vol] 228 10*3/uL Normal 150-450 [facility] Comment on above: Performed By: #### E SR, ADDONUAPLUS, CBC, CMP #### [place] [address] [place] #### C3, C4, CH50 #### [facility] , RBC (Bld) [#/Vol] 3.85 10*6/uL Normal 3.60-5.00 [facility] Comment on above: Performed By: #### E SR, ADDONUAPLUS, CBC, CMP #### [facility] [address] [place] [address] [place] #### C3, C4, CH50 #### [facility] , WBC (Bld) [#/Vol] 5.1 10*3/uL Normal 3.8-11.6 [facility] Comment on above: Performed By: #### E SR, ADDONUAPLUS, CBC, CMP #### [place] [address] [place] #### C3, C4, CH50 #### [facility] , Comprehensive Metabolic Pane trevor 08-11-2024 Albumin [Mass/Vol] 4.0 g/dL Normal 3.5-5.7 [facility] Comment on above: Performed By: #### E SR, ADDONUAPLUS, CBC, CMP #### [address] #### C3, C4, CH50 #### [facility] , Albumin/Globulin [Mass ratio] 1.7 {ratio} Normal [facility] Comment on above: Performed By: #### E SR, ADDONUAPLUS, CBC, CMP #### [address] #### C3, C4, CH50 #### [facility] , ALP [Catalytic activity/Vol] 54 U/L Normal 34-104 [facility] Comment on above: Result Comment: PERF ORMED BY: [place] [address] PATHOLOGIST [employer] DIRECTOR DOMINICK MONTIEL M.D. Performed By: #### E SR, ADDONUAPLUS, CBC, CMP #### [address] #### C3, C4, CH50 #### [facility] , ALT [Catalytic activity/Vol] 11 U/L Normal 7-52 [facility] Comment on above: Performed By: #### E SR, ADDONUAPLUS, CBC, CMP #### [address] #### C3, C4, CH50 #### [facility] , Anion gap [Moles/Vol] 10.1 mmol/L Normal 6.0-15.0 [facility] Comment on above: Performed By: #### E SR, ADDONUAPLUS, CBC, CMP #### [facility] [address] [place] [address] #### C3, C4, CH50 #### [facility] , AST [Catalytic activity/Vol] 16 U/L Normal 13-39 [facility] Comment on above: Performed By: #### E SR, ADDONUAPLUS, CBC, CMP #### [address] #### C3, C4, CH50 #### [facility] , Bilirubin [Mass/Vol] 0.5 mg/dL Normal 0.3-1.0 [facility] Comment on above: Performed By: #### E SR, ADDONUAPLUS, CBC, CMP #### [facility] [address] [place] [address] [place] #### C3, C4, CH50 #### [facility] , Calcium [Mass/Vol] 9.3 mg/dL Normal 8.6-10.3 [facility] Comment on above: Performed By: #### E SR, ADDONUAPLUS, CBC, CMP #### [address] #### C3, C4, CH50 #### [facility] , Chloride [Moles/Vol] 107 mmol/L Normal 98-107 [facility] Comment on above: Performed By: #### E SR, ADDONUAPLUS, CBC, CMP #### [facility] [address] [place] [address] [place] #### C3, C4, CH50 #### [facility] , CO2 [Moles/Vol] 27.1 mmol/L Normal 21.0-31.0 [facility] Comment on above: Performed By: #### E SR, ADDONUAPLUS, CBC, CMP #### [place] [id number] [place] #### C3, C4, CH50 #### [facility] , Creatinine [Mass/Vol] 1.30 mg/dL High 0.60-1.20 [facility] Comment on above: Performed By: #### E SR, ADDONUAPLUS, CBC, CMP #### [place] [address] [place] #### C3, C4, CH50 #### [facility] , Estimated GFR 41.829 mL/Min Normal [facility] Comment on above: Performed By: #### E SR, ADDONUAPLUS, CBC, CMP #### [place] [address] [place] #### C3, C4, CH50 #### [facility] , Globulin (S) [Mass/Vol] 2.3 g/dL Normal [facility] Comment on above: Performed By: #### E SR, ADDONUAPLUS, CBC, CMP #### [place] [address] [place] #### C3, C4, CH50 #### [facility] , Glucose [Mass/Vol] 94 mg/dL Normal 70-100 [facility] Comment on above: Result Comment: [place] Glucose Reference Range is dependent on time and content of last meal. Glucose of more than 200 mg/dL in a nonstressed, ambulatory subject supports the diagnosis of Diabetes Mellitus. ADA recommended reference range Performed By: #### E SR, ADDONUAPLUS, CBC, CMP #### [place] [address] [place] #### C3, C4, CH50 #### [facility] , Potassium [Moles/Vol] 4.2 mmol/L Normal 3.5-5.1 [facility] Comment on above: Performed By: #### E SR, ADDONUAPLUS, CBC, CMP #### [place] [address] [place] #### C3, C4, CH50 #### [facility] , Protein [Mass/Vol] 6.3 g/dL Low 6.4-8.9 [facility] Comment on above: Performed By: #### E SR, ADDONUAPLUS, CBC, CMP #### [place] [address] [place] #### C3, C4, CH50 #### [facility] , Sodium [Moles/Vol] 140 mmol/L Normal 136-145 [facility] Comment on above: Performed By: #### E SR, ADDONUAPLUS, CBC, CMP #### [address] #### C3, C4, CH50 #### [facility] , Urea nitrogen [Mass/Vol] 30 mg/dL High 7-25 [facility] Comment on above: Performed By: #### E SR, ADDONUAPLUS, CBC, CMP #### [address] #### C3, C4, CH50 #### [facility] , Creatinine [Mass/volume] in Serum or PlasmaOrdered By: Obie Hylton on 08-11-2024 Creatinine [Mass/Vol] Creatinine [Mass/v olume] in Serum or Plasma High 0.60-1.20 [facility] Dipstick and Microscopicon 0 08-11-2024 Appearance (U) Clear Normal Clear [facility] Comment on above: Order Comment: Name Collection Type:: Clean-Voided Midstream Performed By: #### C 4, C3, CH50 #### [facility] , #### CBC, ESR, ADDONUAPLUS, CMP #### [address] Bacteria,Urine Rare Normal None Seen [facility] Comment on above: Order Comment: Name Collection Type:: Clean-Voided Midstream Performed By: #### C 4, C3, CH50 #### [facility] , #### CBC, ESR, ADDONUAPLUS, CMP #### [address] Bilirubin,Urine Negative Normal Negative [facility] Comment on above: Order Comment: Name Collection Type:: Clean-Voided Midstream Performed By: #### C 4, C3, CH50 #### [facility] , #### CBC, ESR, ADDONUAPLUS, CMP #### [address] Color (U) Yellow Normal Yellow [facility] Comment on above: Order Comment: Name Collection Type:: Clean-Voided Midstream Performed By: #### C 4, C3, CH50 #### [facility] , #### CBC, ESR, ADDONUAPLUS, CMP #### [address] Glucose Ql (U) Normal Normal Normal [facility] Comment on above: Order Comment: Name Collection Type:: Clean-Voided Midstream Performed By: #### C 4, C3, CH50 #### [facility] , #### CBC, ESR, ADDONUAPLUS, CMP #### [address] Hyaline Casts,Urine 0-8 Normal 0-8 [facility] Comment on above: Order Comment: Name Collection Type:: Clean-Voided Midstream Performed By: #### C 4, C3, CH50 #### [facility] , #### CBC, ESR, ADDONUAPLUS, CMP #### [address] Ketones Ql (U) Negative Normal Negative [facility] Comment on above: Order Comment: Name Collection Type:: Clean-Voided Midstream Performed By: #### C 4, C3, CH50 #### [facility] , #### CBC, ESR, ADDONUAPLUS, CMP #### [address] Leukocyte esterase Test strip Ql (U) Negative Normal Negative [facility] Comment on above: Order Comment: Name Collection Type:: Clean-Voided Midstream Performed By: #### C 4, C3, CH50 #### [facility] , #### CBC, ESR, ADDONUAPLUS, CMP #### [address] Mucus,Urine Rare Normal [facility] Comment on above: Order Comment: Name Collection Type:: Clean-Voided Midstream Result Comment: PERF ORMED BY: [place] [address] PATHOLOGIST SAL[employer] DIRECTOR DOMINICK MONTIEL M.D. Performed By: #### C 4, C3, CH50 #### [facility] , #### CBC, ESR, ADDONUAPLUS, CMP #### [address] Nitrite,Urine Negative Normal Negative [facility] Comment on above: Order Comment: Name Collection Type:: Clean-Voided Midstream Performed By: #### C 4, C3, CH50 #### [facility] , #### CBC, ESR, ADDONUAPLUS, CMP #### [address] Occult Blood,Urine Negative Normal Negative [facility] Comment on above: Order Comment: Name Collection Type:: Clean-Voided Midstream Performed By: #### C 4, C3, CH50 #### [facility] , #### CBC, ESR, ADDONUAPLUS, CMP #### [address] pH (U) 6.0 [pH] Normal 5.0-9.0 [facility] Comment on above: Order Comment: Name Collection Type:: Clean-Voided Midstream Performed By: #### C 4, C3, CH50 #### [facility] , #### CBC, ESR, ADDONUAPLUS, CMP #### [address] Protein,Urine Negative Normal Negative [facility] Comment on above: Order Comment: Name Collection Type:: Clean-Voided Midstream Performed By: #### C 4, C3, CH50 #### [facility] , #### CBC, ESR, ADDONUAPLUS, CMP #### [address] RBC,Urine 3-4 Normal 0-4 [facility] Comment on above: Order Comment: Name Collection Type:: Clean-Voided Midstream Performed By: #### C 4, C3, CH50 #### [facility] , #### CBC, ESR, ADDONUAPLUS, CMP #### [address] Specificy [place],Urine 1.023 Normal 1.001-1.03 0 [facility] Comment on above: Order Comment: Name Collection Type:: Clean-Voided Midstream Performed By: #### C 4, C3, CH50 #### [facility] , #### CBC, ESR, ADDONUAPLUS, CMP #### [address] Squamous Epithelial Cell,Urine 3-4 High 0-2 [facility] Comment on above: Order Comment: Name Collection Type:: Clean-Voided Midstream Performed By: #### C 4, C3, CH50 #### [facility] , #### CBC, ESR, ADDONUAPLUS, CMP #### [address] Urobilinogen,Urine 3 mg/dL High Normal [facility] Comment on above: Order Comment: Name Collection Type:: Clean-Voided Midstream Performed By: #### C 4, C3, CH50 #### [facility] , #### CBC, ESR, ADDONUAPLUS, CMP #### [facility] [address] [place] [address] WBC,Urine 1-2 Normal 0-4 [facility] Comment on above: Order Comment: Name Collection Type:: Clean-Voided Midstream Performed By: #### C 4, C3, CH50 #### [facility] , #### CBC, ESR, ADDONUAPLUS, CMP #### [facility] [address] [place] [address] Eosinophils Auto (Bld) [#/Vo l]Ordered By: Obie Hylton on 08-11-2024 Eosinophils (Bld) [#/Vol] Automated eosinophil count 0.0-0.45 [facility] Eosinophils/100 WBC Auto (Bl d)Ordered By: Obie Hylton on 08-11-2024 Eosinophils/100 WBC (Bld) Automated eosinophil % . [facility] Epithelial cells.squamous [# /area] in Urine sediment by Automated countOrdered By: Obie Hylton on 08-11-2024 Epithelial cells.squamous Auto (Urine sed) [#/Area] Epithelial cells.squamous [#/area] in Urine sediment by Automated count High 0-2 [facility] Erythrocyte Sedimentation Ra heather 08-11-2024 ESR (Bld) [Velocity] 23 mm/h Normal 0-29 [facility] Comment on above: Result Comment: PERF ORMED BY: [place] [address] PATHOLOGIST SALES PR[employer]OTION DIRECTOR DOMINICK MONTIEL M.D. Performed By: #### C 4, C3, CH50 #### [facility] , #### CBC, ESR, ADDONUAPLUS, CMP #### [facility] [address] [place] [address] Erythrocyte distribution wid th Auto (RBC) [Ratio]Ordered By: Obie Hylton on 08-11-2024 Erythrocyte distribution width (RBC) [Ratio] Erythrocyte distribution width [Ratio] by Automated count 11.9-15.3 [facility] Erythrocyte sedimentation ra te by Photometric methodOrdered By: Obie Hylton on 08-11-2024 ESR Photometric method (Bld) [Velocity] Erythrocyte sedimentation rate by Photometric method 0-29 [facility] Erythrocytes [#/area] in Uri ne sediment by Automated countOrdered By: Obie Hylton on 08-11-2024 RBC Auto (Urine sed) [#/Area] Erythrocytes [#/area] in Urine sediment by Automated count 0-4 [facility] Globulin Calc (S) [Mass/Vol] Ordered By: Obie Hylton on 08-11-2024 Globulin (S) [Mass/Vol] Serum globulin measurement by calculation (mass/volume) [facility] Glucose [Mass/volume] in Ser um or PlasmaOrdered By: Obie Hylton on 08-11-2024 Glucose [Mass/Vol] Glucose [Mass/volume ] in Serum or Plasma 70-100 [facility] Comment on above: ADA recommended refe [...] [Mass/volume] in Urine by Test strip Normal [facility] Hematocrit Auto (Bld) [Volum e fraction]Ordered By: Obie Hylton on 08-11-2024 Hematocrit (Bld) [Volume fraction] Hematocrit [Volume Fraction] of Blood by Automated count 34.0-46.4 [facility] Hemoglobin Test strip Ql (U) Ordered By: Obie Hylton on 08-11-2024 Hemoglobin Ql (U) Hemoglobin [Presence ] in Urine by Test strip Negative [facility] Hemoglobin [Mass/volume] in BloodOrdered By: Obie Hylton on 08-11-2024 Hemoglobin (Bld) [Mass/Vol] Hemoglobin [Mass/volume] in Blood 11.8-15.4 [facility] Hyaline casts [#/area] in Ur ine sediment by Automated countOrdered By: Obie Hylton on 08-11-2024 Hyaline casts Auto (Urine sed) [#/Area] Hyaline casts [#/area] in Urine sediment by Automated count 0-8 [facility] Ketones Test strip Ql (U)Ord ered By: Obie Hylton on 08-11-2024 Ketones Ql (U) Ketones [Presence] i n Urine by Test strip Negative [facility] Leukocyte esterase [Presence ] in Urine by Test stripOrdered By: Obie Hylton on 08-11-2024 Leukocyte esterase Test strip Ql (U) Leukocyte esterase [Presence] in Urine by Test strip Negative [facility] Leukocytes [#/area] in Urine sediment by Automated countOrdered By: Obie Hylton on 08-11-2024 WBC Auto (Urine sed) [#/Area] Leukocytes [#/area] in Urine sediment by Automated count 0-4 [facility] Leukocytes [#/volume] correc pepito for nucleated erythrocytes in Blood by Automated counOrdered By: Obie Hylton on 08-11-2024 WBC corrected for nucl RBC Auto (Bld) [#/Vol] Leukocytes [#/volume] corrected for nucleated erythrocytes in Blood by Automated coun 3.8-11.6 [facility] Lymphocytes Auto (Bld) [#/Vo l]Ordered By: Obie Hylton on 08-11-2024 Lymphocytes (Bld) [#/Vol] Lymphocytes [#/volume] in Blood by Automated count 1.00-4.8 [facility] Lymphocytes/100 WBC Auto (Bl d)Ordered By: Obie Hylton on 08-11-2024 Lymphocytes/100 WBC (Bld) Lymphocytes/100 leukocytes in Blood by Automated count . [facility] MCH Auto (RBC) [Entitic mass ]Ordered By: Obie Hylton on 08-11-2024 MCH (RBC) [Entitic mass] MCH [Entitic mass] by Automated count 24.7-34.3 [facility] MCHC Auto (RBC) [Mass/Vol]Or dered By: Obie Hylton on 08-11-2024 MCHC (RBC) [Mass/Vol] MCHC [Mass/volume] by Automated count 32.0-35.0 [facility] MCV Auto (RBC) [Entitic vol] Ordered By: Obie Hylton on 08-11-2024 MCV (RBC) [Entitic vol] MCV [Entitic volume] by Automated count 80-100 [facility] Monocytes Auto (Bld) [#/Vol] Ordered By: Obie Hylton on 08-11-2024 Monocytes (Bld) [#/Vol] Automated blood monocyte count 0.0-0.8 [facility] Monocytes/100 WBC Auto (Bld) Ordered By: Obie Hylton on 08-11-2024 Monocytes/100 WBC (Bld) Automated monocyte % . [facility] Mucus [Presence] in Urine by AutomatedOrdered By: Obie Hylton on 08-11-2024 Mucus Auto Ql (U) Mucus [Presence] in Urine by Automated [facility] Neutrophils Auto (Bld) [#/Vo l]Ordered By: Obie Hylton on 08-11-2024 Neutrophils (Bld) [#/Vol] Neutrophils [#/volume] in Blood by Automated count 1.8-7.7 [facility] Neutrophils/100 WBC Auto (Bl d)Ordered By: Obie Hylton on 08-11-2024 Neutrophils/100 WBC (Bld) Automated neutrophil % . [facility] Nitrite Test strip Ql (U)Ord ered By: Obie Hylton on 08-11-2024 Nitrite Ql (U) Nitrite [Presence] i n Urine by Test strip Negative [facility] No Panel InformationOrdered By: Obie Hylton on 08-11-2024 Estimated GFR (CKD-EPI) 41.829 mL/Min [facility] Creatinine Clearance (Chem N/A [facility] Nucleated erythrocytes [Pres ence] in Blood by Automated countOrdered By: Obie Hylton on 08-11-2024 Nucleated RBC Auto Ql (Bld) Nucleated erythrocytes [Presence] in Blood by Automated count 0-0.5 [facility] Platelet mean volume Auto (B ld) [Entitic vol]Ordered By: Obie Hylton on 08-11-2024 Platelet mean volume (Bld) [Entitic vol] Platelet mean volume [Entitic volume] in Blood by Automated count 6.3-10.7 [facility] Platelets Auto (Bld) [#/Vol] Ordered By: Obie Hylton on 08-11-2024 Platelets (Bld) [#/Vol] Platelets [#/volume] in Blood by Automated count 150-450 [facility] Potassium [Moles/volume] in Serum or PlasmaOrdered By: Obie Hylton on 08-11-2024 Potassium [Moles/Vol] Potassium [Moles/v olume] in Serum or Plasma 3.5-5.1 [facility] Protein Test strip (U) [Mass /Vol]Ordered By: Obie Hylton on 08-11-2024 Protein (U) [Mass/Vol] Protein [Mass/volume] in Urine by Test strip Negative [facility] Protein [Mass/volume] in Ser um or PlasmaOrdered By: Obie Hylton on 08-11-2024 Protein [Mass/Vol] Protein [Mass/volume ] in Serum or Plasma Low 6.4-8.9 [facility] RBC Auto (Bld) [#/Vol]Ordere d By: Obie Hylton on 08-11-2024 RBC (Bld) [#/Vol] Erythrocytes [#/volu me] in Blood by Automated count 3.60-5.00 [facility] Serum or plasma albumin/glob ulin mass ratioOrdered By: Obie Hylton on 08-11-2024 Albumin/Globulin [Mass ratio] Serum or plasma albumin/globulin mass ratio [facility] Serum or plasma anion gap de terminationOrdered By: Obie Hylton on 08-11-2024 Anion gap [Moles/Vol] Serum or plasma an ion gap determination 6.0-15.0 [facility] Serum or plasma complement C 3 measurement (mass/volume)Ordered By: Obie Hylton on 08-11-2024 Complement C3 [Mass/Vol] Serum or plasma complement C3 measurement (mass/volume) 82-167 [facility] Serum or plasma complement C 4 measurement (mass/volume)Ordered By: Obie Hylton on 08-11-2024 Complement C4 [Mass/Vol] Serum or plasma complement C4 measurement (mass/volume) 12-38 [facility] Comment on above: Performed at: [address] [id number] Director: Usman Draper PhD, Phone: [phone] Sodium [Moles/volume] in Ser um or PlasmaOrdered By: Obie Hylton on 08-11-2024 Sodium [Moles/Vol] Sodium [Moles/volume ] in Serum or Plasma 136-145 [facility] Specific gravity Test strip (U) [Rel density]Ordered By: Obie Hylton on 08-11-2024 Specific gravity (U) [Rel density] Specific gravity of Urine by Test strip 1.001-1.03 0 [facility] Total hemolytic complement C H50 assayOrdered By: Obie Hylton on 08-11-2024 Total Complement (CH50) 54 U/mL >41 [facility] Comment on above: Age Male Female [...] to determine out of range values.Performed at: [facility] Director: Usman Draper PhD, Phone: [phone] Urea nitrogen [Mass/volume] in Serum or PlasmaOrdered By: Obie Hylton on 08-11-2024 Urea nitrogen [Mass/Vol] Urea nitrogen [Mass/volume] in Serum or Plasma High 7-25 [facility] Urobilinogen Test strip (U) [Mass/Vol]Ordered By: Obie Hylton on 08-11-2024 Urobilinogen (U) [Mass/Vol] Urobilinogen [Mass/volume] in Urine by Test strip High Normal [facility] WBC Auto (Bld) [#/Vol]Ordere d By: Obie Hylton on 08-11-2024 WBC (Bld) [#/Vol] Leukocytes [#/volume ] in Blood by Automated count 3.8-11.6 [facility] pH Test strip (U)Ordered By: Obie Hylton on 08-11-2024 pH (U) pH of Urine by Test strip 5.0-9.0 [facility] XR Ankle - right 3 Viewson 0 1-10-2025 1. No acute bone abnormality or significant degenerative joint disease. [facility] Bello Henry MD - 07/10/2024 PROCEDURE: XR [...] bone abnormality or significant degenerative joint disease. [facility] Radiology Study observation (narrative) [facility] XR Ankle - right 3 ViewsOrde red By: Bello Leal on 07-10-2024 [facility] COVID-19, Rapidon 06-24-2024 Interpretation and review of laboratory results Abnormal [facility] SARS-CoV-2 (COVID-19) RdRp gene JUAQUIN+probe Ql (Resp) Detected Abnormal Not Detected [facility] Comment on above: Rapid NAAT: The specimen [...] appropriate Health Department Specimen Description .NASOPHARYNGEAL SWAB [facility] Flu A/B Ag Detectionon 06-24 Flu A Ag Detection Negative Normal NEG [facility] Comment on above: Result Comment: for Influenza A Antigen Performed By: #### F LUABA #### [facility] [address] [place] [address] Flotation Tank Operator: Christian Muir MD Flu B Ag Detection Negative Normal NEG [facility] Comment on above: Result Comment: for Influenza B Antigen. Performed By: #### F LUABA #### [facility] [address] [place] [address] Flotation Tank Operator: Christian Muir MD Rapid Strep Screenon 024 Specimen source Nom (Unsp spec) .THROAT SWAB [facility] Strep A, Molecular Negative NEGATIVE [facility] Rapid influenza A/B antigens on 06-24-2024 FLUAV Ag Ql (Unsp spec) Negative NEGATIVE [facility] Comment on above: for Influenza A Anti gen FLUBV Ag Ql (Unsp spec) Negative NEGATIVE [facility] Comment on above: for Influenza B Anti gen. [facility] [id number] 06-24-2024 SARS-CoV-2 (COVID-19) RNA JUAQUIN+probe Ql (Unsp spec) Detected Abnormal [facility] Comment on above: Result Comment: Rapid NAAT: [...] Department Performed By: #### C OVRB #### [facility] [address] [place] [address] Flotation Tank Operator: Christian Muir MD Strep Group A, Rapidon 06-24 Strep A, Molecular Negative Normal NEG [facility] Comment on above: Performed By: #### C OVRB #### [facility] [address] [place] [address] Flotation Tank Operator: Christian Muir MD Source .THROAT SWAB Normal [facility] Comment on above: Performed By: #### C OVRB #### [facility] [address] [place] [address] Flotation Tank Operator: Christian Muir MD [facility] WU DIGITAL SCREEN ROLO Rivas 05-12-2024 ANA [...] the patient regarding the results. Performing Facility: [place] [address] Interpreted by: Ishmael Valentin Jr., MD Signed by: Ishmael Valentin Jr., MD 05/12/24 Final result Normal [facility] Alanine aminotransferase [En zymatic activity/volume] in Serum or PlasmaOrdered By: Obie Hylton on 12-19-2023 ALT [Catalytic activity/Vol] 10 U/L Normal 7-52 [facility] Comment on above: Performed By: #### C 4, C3, CH50 #### [facility] , #### CBC, ESR, ADDONUAPLUS, CMP #### [address] Albumin [Mass/volume] in Ser um or Plasma by Bromocresol green (BCG) dye binding methoOrdered By: Obie Hylton on 12-19-2023 Albumin BCG dye [Mass/Vol] 3.9 g/dL 3.5-5.7 [facility] Alkaline phosphatase [Enzyma tic activity/volume] in Serum or PlasmaOrdered By: Obie Hylton on 12-19-2023 ALP [Catalytic activity/Vol] 56 U/L Normal 34-104 [facility] Comment on above: Result Comment: PERF ORMED BY: [place] [address] PATHOLOGIST SALES PROMOTION DIRECTOR MANUEL PABON M.D. Performed By: #### C 4, C3, CH50 #### [facility] , #### CBC, ESR, ADDONUAPLUS, CMP #### [address] Aspartate aminotransferase [ Enzymatic activity/volume] in Serum or PlasmaOrdered By: Obie Ramirezrow on 12-19-2023 AST [Catalytic activity/Vol] 13 U/L Normal 13-39 [facility] Comment on above: Performed By: #### C 4, C3, CH50 #### [facility] , #### CBC, ESR, ADDONUAPLUS, CMP #### [address] Automated basophil %Ordered By: Obie Warner on 12-19-2023 Basophils/100 WBC (Bld) 0.3 % Normal . [facility] Comment on above: Performed By: #### C 4, C3, CH50 #### [facility] , #### CBC, ESR, ADDONUAPLUS, CMP #### [address] Automated basophil countOrde red By: Obie Ramirezrow on 12-19-2023 Basophils (Bld) [#/Vol] 0.0 10*3/uL Normal 0.0-0.2 [facility] Comment on above: Performed By: #### C 4, C3, CH50 #### [facility] , #### CBC, ESR, ADDONUAPLUS, CMP #### [address] Automated blood monocyte cou ntOrdered By: Obie Warner on 12-19-2023 Monocytes (Bld) [#/Vol] 0.5 10*3/uL Normal 0.0-0.8 [facility] Comment on above: Performed By: #### C 4, C3, CH50 #### [facility] , #### CBC, ESR, ADDONUAPLUS, CMP #### [address] Automated eosinophil %Ordere d By: Obie Hylton on 12-19-2023 Eosinophils/100 WBC (Bld) 2.5 % Normal . [facility] Comment on above: Performed By: #### C 4, C3, CH50 #### [facility] , #### CBC, ESR, ADDONUAPLUS, CMP #### [address] Automated eosinophil countOr dered By: Obie Hylton on 12-19-2023 Eosinophils (Bld) [#/Vol] 0.1 10*3/uL Normal 0.0-0.45 [facility] Comment on above: Performed By: #### C 4, C3, CH50 #### [facility] , #### CBC, ESR, ADDONUAPLUS, CMP #### [address] Automated monocyte %Ordered By: Obie Ramirezrow on 12-19-2023 Monocytes/100 WBC (Bld) 9.2 % Normal . [facility] Comment on above: Performed By: #### C 4, C3, CH50 #### [facility] , #### CBC, ESR, ADDONUAPLUS, CMP #### [address] Automated neutrophil %Ordere d By: Obie Ramirezrow on 12-19-2023 Neutrophils/100 WBC (Bld) 70.1 % Normal . [facility] Comment on above: Performed By: #### C 4, C3, CH50 #### [facility] , #### CBC, ESR, ADDONUAPLUS, CMP #### [address] Bacteria [Presence] in Urine sediment by Light microscopyOrdered By: Obie Ramirezrow on 12-19-2023 Bacteria LM Ql (Urine sed) Rare [HPF] High None Seen [facility] Bilirubin Test strip Ql (U)O rdered By: Obie Hylton on 12-19-2023 Bilirubin Ql (U) Negative Negative [facility] Bilirubin.total [Mass/volume ] in Serum or PlasmaOrdered By: Obie Hylton on 12-19-2023 Bilirubin [Mass/Vol] 0.4 mg/dL Normal 0.3-1.0 [facility] Comment on above: Performed By: #### C 4, C3, CH50 #### [facility] , #### CBC, ESR, ADDONUAPLUS, CMP #### [facility] [address] [place] [address] [place] Calcium [Mass/volume] in Ser um or PlasmaOrdered By: Obie Hylton on 12-19-2023 Calcium [Mass/Vol] 9.1 mg/dL Normal 8.6-10.3 [facility] Comment on above: Performed By: #### C 4, C3, CH50 #### [facility] , #### CBC, ESR, ADDONUAPLUS, CMP #### [facility] [address] [place] [address] [place] Carbon dioxide, total [Moles /volume] in Serum or PlasmaOrdered By: Obie Hylton on 12-19-2023 CO2 [Moles/Vol] 27.0 mmol/L Normal 21.0-31.0 [facility] Comment on above: Performed By: #### C 4, C3, CH50 #### [facility] , #### CBC, ESR, ADDONUAPLUS, CMP #### [facility] [address] [place] [address] [place] Chloride [Moles/volume] in S liat or PlasmaOrdered By: Obie Ramirezrow on 12-19-2023 Chloride [Moles/Vol] 107 mmol/L Normal 98-107 [facility] Comment on above: Performed By: #### C 4, C3, CH50 #### [facility] , #### CBC, ESR, ADDONUAPLUS, CMP #### [address] Color of Urine by AutoOrdere d By: Obie Hylton on 12-19-2023 Color (U) Light-yellow Normal Yellow [facility] Comment on above: Order Comment: Name Collection Type:: Clean-Voided Midstream Performed By: #### C 4, C3, CH50 #### [facility] , #### CBC, ESR, ADDONUAPLUS, CMP #### [address] Complement C3on 12-19-2023 Complement C3 120 mg/dL Normal 82-167 [facility] Comment on above: Result Comment: Perf ormed at: [facility] [id number] Flotation Tank Operator: Usman Draper PhD, Phone: [phone] Performed By: #### C 4, C3, CH50 #### [facility] , #### CBC, ESR, ADDONUAPLUS, CMP #### [address] Complement C4on 12-19-2023 Complement C4 22 mg/dL Normal 12-38 [facility] Comment on above: Result Comment: PERF ORMED BY: [place] [address] PATHOLOGIST SALES PROMOTION DIRECTOR MANUEL PABON M.D. Performed By: #### C 4, C3, CH50 #### [facility] , #### CBC, ESR, ADDONUAPLUS, CMP #### [address] Complement Total (CH50)on Complement Total (CH50) 57 Normal >41 [facility] Comment on above: Result Comment: [...] out of range values. Performed at: - [facility] [id number] Flotation Tank Operator: Usman Draper PhD, Phone: [phone] PERFORMED BY: [place] [address] PATHOLOGIST SALES PROMOTION DIRECTOR MANUEL PABON M.D. Performed By: #### C 4, C3, CH50 #### [facility] , #### CBC, ESR, ADDONUAPLUS, CMP #### [address] Complete Blood Count Auto Di ffon 12-19-2023 Mean Corpuscular HGB Conc 33.8 g/dL Normal 32.0-35.0 [facility] Comment on above: Performed By: #### C 4, C3, CH50 #### [facility] , #### CBC, ESR, ADDONUAPLUS, CMP #### [address] NRBC% 0.2 /100{WBC} Normal 0-0.5 [facility] Comment on above: Performed By: #### C 4, C3, CH50 #### [facility] , #### CBC, ESR, ADDONUAPLUS, CMP #### [address] Comprehensive Metabolic Pane trevor 12-19-2023 Albumin [Mass/Vol] 3.9 g/dL Normal 3.5-5.7 [facility] Comment on above: Performed By: #### C 4, C3, CH50 #### [facility] , #### CBC, ESR, ADDONUAPLUS, CMP #### [address] GFR/1.73 sq M.predicted MDRD (S/P/Bld) [Vol rate/Area] 47.958 mL/min/{1.73_m2} Normal [facility] Comment on above: Performed By: #### C 4, C3, CH50 #### [facility] , #### CBC, ESR, ADDONUAPLUS, CMP #### [address] Creatinine [Mass/volume] in Serum or PlasmaOrdered By: Obie Hylton on 12-19-2023 Creatinine [Mass/Vol] 1.16 mg/dL Normal 0.60-1.20 [facility] [place] Comment on above: Performed By: #### C 4, C3, CH50 #### [facility] , #### CBC, ESR, ADDONUAPLUS, CMP #### [address] Dipstick and Microscopicon 0 12-19-2023 Bacteria,Urine Rare High None Seen [facility] Comment on above: Order Comment: Name Collection Type:: Clean-Voided Midstream Result Comment: PERF ORMED BY: [place] [address] PATHOLOGIST SALES PROMOTION DIRECTOR MANUEL PABON M.D. Performed By: #### C 4, C3, CH50 #### [facility] , #### CBC, ESR, ADDONUAPLUS, CMP #### [address] Bilirubin,Urine Negative Normal Negative [facility] Comment on above: Order Comment: Name Collection Type:: Clean-Voided Midstream Performed By: #### C 4, C3, CH50 #### [facility] , #### CBC, ESR, ADDONUAPLUS, CMP #### [facility] [address] [place] [address] [place] Glucose Ql (U) Normal Normal Normal [facility] Comment on above: Order Comment: Name Collection Type:: Clean-Voided Midstream Performed By: #### C 4, C3, CH50 #### [facility] , #### CBC, ESR, ADDONUAPLUS, CMP #### [place] [address] [place] Nitrite,Urine Negative Normal Negative [facility] Comment on above: Order Comment: Name Collection Type:: Clean-Voided Midstream Performed By: #### C 4, C3, CH50 #### [facility] , #### CBC, ESR, ADDONUAPLUS, CMP #### [place] [address] [place] Occult Blood,Urine Negative Normal Negative [facility] Comment on above: Order Comment: Name Collection Type:: Clean-Voided Midstream Performed By: #### C 4, C3, CH50 #### [facility] , #### CBC, ESR, ADDONUAPLUS, CMP #### [place] [address] [place] Protein,Urine Negative Normal Negative [facility] Comment on above: Order Comment: Name Collection Type:: Clean-Voided Midstream Performed By: #### C 4, C3, CH50 #### [facility] , #### CBC, ESR, ADDONUAPLUS, CMP #### [place] [address] [place] RBC,Urine None Seen Normal 0-4 [facility] Comment on above: Order Comment: Name Collection Type:: Clean-Voided Midstream Performed By: #### C 4, C3, CH50 #### [facility] , #### CBC, ESR, ADDONUAPLUS, CMP #### [place] [address] [place] Specificy Ambler,Urine 1.020 Normal 1.001-1.03 0 [facility] Comment on above: Order Comment: Name Collection Type:: Clean-Voided Midstream Performed By: #### C 4, C3, CH50 #### [facility] , #### CBC, ESR, ADDONUAPLUS, CMP #### [address] Squamous Epithelial Cell,Urine 0-1 Normal 0-2 [facility] Comment on above: Order Comment: Name Collection Type:: Clean-Voided Midstream Performed By: #### C 4, C3, CH50 #### [facility] , #### CBC, ESR, ADDONUAPLUS, CMP #### [address] Urobilinogen,Urine Normal Normal Normal [facility] Comment on above: Order Comment: Name Collection Type:: Clean-Voided Midstream Performed By: #### C 4, C3, CH50 #### [facility] , #### CBC, ESR, ADDONUAPLUS, CMP #### [address] WBC,Urine None Seen Normal 0-4 [facility] Comment on above: Order Comment: Name Collection Type:: Clean-Voided Midstream Performed By: #### C 4, C3, CH50 #### [facility] , #### CBC, ESR, ADDONUAPLUS, CMP #### [address] Epithelial cells.squamous [# /area] in Urine sediment by Microscopy high power fieldOrdered By: Obie Hylton on 12-19-2023 Epithelial cells.squamous LM.HPF (Urine sed) [#/Area] 0-1 [HPF] 0-2 [facility] Erythrocyte Sedimentation Ra heather 12-19-2023 ESR (Bld) [Velocity] 12 mm/h Normal 0-29 [facility] Comment on above: Result Comment: PERF ORMED BY: [place] [address] PATHOLOGIST SALES PROMOTION DIRECTOR MANUEL PABON M.D. Performed By: #### C 4, C3, CH50 #### [facility] , #### CBC, ESR, ADDONUAPLUS, CMP #### [address] Erythrocyte distribution wid th [Ratio] by Automated countOrdered By: Obie Hylton on 12-19-2023 Erythrocyte distribution width (RBC) [Ratio] 15.0 % Normal 11.9-15.3 [facility] Comment on above: Performed By: #### C 4, C3, CH50 #### [facility] , #### CBC, ESR, ADDONUAPLUS, CMP #### [address] Erythrocyte sedimentation ra te by Photometric methodOrdered By: Obie Hylton on 12-19-2023 ESR Photometric method (Bld) [Velocity] 12 mm/hr 0-29 [facility] Erythrocytes [#/area] in Uri ne sediment by Microscopy high power fieldOrdered By: Obie Hylton on 12-19-2023 RBC LM.HPF (Urine sed) [#/Area] None seen [HPF] 0-4 [facility] Erythrocytes [#/volume] in B lood by Automated countOrdered By: Obie Hylton on 12-19-2023 RBC (Bld) [#/Vol] 3.56 10*6/uL Low 3.60-5.00 [facility] Comment on above: Performed By: #### C 4, C3, CH50 #### [facility] , #### CBC, ESR, ADDONUAPLUS, CMP #### [facility] [address] [place] [address] Glucose [Mass/volume] in Ser um or PlasmaOrdered By: Obie Hylton on 12-19-2023 Glucose [Mass/Vol] 92 mg/dL Normal 70-100 [facility] Comment on above: ADA recommended refe rence rangeRandom Glucose Reference Range is dependent on time and content of last meal. Glucose of more than 200 mg/dL in a nonstressed, ambulatory subject supports the diagnosis of Diabetes Mellitus. Result Comment: [place] om Glucose Reference Range is dependent on time and content of last meal. Glucose of more than 200 mg/dL in a nonstressed, ambulatory subject supports the diagnosis of Diabetes Mellitus. ADA recommended reference range Performed By: #### C 4, C3, CH50 #### [facility] , #### CBC, ESR, ADDONUAPLUS, CMP #### [address] Glucose [Mass/volume] in Uri ne by Test stripOrdered By: Obie Ramirezrow on 12-19-2023 Glucose Test strip (U) [Mass/Vol] Normal mg/dL Normal [facility] Hematocrit [Volume Fraction] of Blood by Automated countOrdered By: Obie Ramirezrow on 12-19-2023 Hematocrit (Bld) [Volume fraction] 33.2 % Low 34.0-46.4 [facility] Comment on above: Performed By: #### C 4, C3, CH50 #### [facility] , #### CBC, ESR, ADDONUAPLUS, CMP #### [address] Hemoglobin Test strip Ql (U) Ordered By: Obie Ramirezrow on 12-19-2023 Hemoglobin Ql (U) Negative Negative [facility] Hemoglobin [Mass/volume] in BloodOrdered By: Obie Ramirezrow on 12-19-2023 Hemoglobin (Bld) [Mass/Vol] 11.2 g/dL Low 11.8-15.4 [facility] Comment on above: Performed By: #### C 4, C3, CH50 #### [facility] , #### CBC, ESR, ADDONUAPLUS, CMP #### [address] Ketones [Presence] in Urine by Test stripOrdered By: Obie Ramirezrow on 12-19-2023 Ketones Ql (U) Negative Normal Negative [facility] Comment on above: Order Comment: Name Collection Type:: Clean-Voided Midstream Performed By: #### C 4, C3, CH50 #### [facility] , #### CBC, ESR, ADDONUAPLUS, CMP #### [address] Leukocyte esterase [Presence ] in Urine by Test stripOrdered By: Obie Hylton on 12-19-2023 Leukocyte esterase Test strip Ql (U) Negative Normal Negative [facility] Comment on above: Order Comment: Name Collection Type:: Clean-Voided Midstream Performed By: #### C 4, C3, CH50 #### [facility] , #### CBC, ESR, ADDONUAPLUS, CMP #### [address] Leukocytes [#/area] in Urine sediment by Microscopy high power fieldOrdered By: Obie Hylton on 12-19-2023 WBC LM.HPF (Urine sed) [#/Area] None seen [HPF] 0-4 [facility] Leukocytes [#/volume] correc pepito for nucleated erythrocytes in Blood by Automated counOrdered By: Obie Hylton on 12-19-2023 WBC corrected for nucl RBC Auto (Bld) [#/Vol] 5.9 10*3/uL 3.8-11.6 [facility] Leukocytes [#/volume] in Blo od by Automated countOrdered By: Obie Hylton on 12-19-2023 WBC (Bld) [#/Vol] 5.9 10*3/uL Normal 3.8-11.6 [facility] Comment on above: Performed By: #### C 4, C3, CH50 #### [facility] , #### CBC, ESR, ADDONUAPLUS, CMP #### [facility] [address] [place] [address] [place] Lymphocytes [#/volume] in Bl ood by Automated countOrdered By: Obie Hylton on 12-19-2023 Lymphocytes (Bld) [#/Vol] 1.1 10*3/uL Normal 1.00-4.8 [facility] Comment on above: Performed By: #### C 4, C3, CH50 #### [facility] , #### CBC, ESR, ADDONUAPLUS, CMP #### [facility] [address] [place] [address] Lymphocytes/100 leukocytes i n Blood by Automated countOrdered By: Obie Hylton on 12-19-2023 Lymphocytes/100 WBC (Bld) 17.9 % Normal . [facility] Comment on above: Performed By: #### C 4, C3, CH50 #### [facility] , #### CBC, ESR, ADDONUAPLUS, CMP #### [address] MCH [Entitic mass] by Automa pepito countOrdered By: Obie Hylton on 12-19-2023 MCH (RBC) [Entitic mass] 31.5 pg Normal 24.7-34.3 [facility] Comment on above: Performed By: #### C 4, C3, CH50 #### [facility] , #### CBC, ESR, ADDONUAPLUS, CMP #### [address] MCHC Auto (RBC) [Mass/Vol]Or dered By: Obie Hylton on 12-19-2023 MCHC (RBC) [Mass/Vol] 33.8 g/dL 32.0-35.0 [facility] [place] MCV [Entitic volume] by Auto mated countOrdered By: Obie Hylton on 12-19-2023 MCV (RBC) [Entitic vol] 93.2 fL Normal 80-100 [facility] Comment on above: Performed By: #### C 4, C3, CH50 #### [facility] , #### CBC, ESR, ADDONUAPLUS, CMP #### [address] Neutrophils [#/volume] in Bl ood by Automated countOrdered By: Obie Ramirezrow on 12-19-2023 Neutrophils (Bld) [#/Vol] 4.1 10*3/uL Normal 1.8-7.7 [facility] Comment on above: Performed By: #### C 4, C3, CH50 #### [facility] , #### CBC, ESR, ADDONUAPLUS, CMP #### [facility] [address] Nitrite Test strip Ql (U)Ord ered By: Obie Ramirezrow on 12-19-2023 Nitrite Ql (U) Negative Negative [facility] No Panel InformationOrdered By: Obie Ramirezrow on 12-19-2023 Estimated GFR (CKD-EPI) 47.958 mL/Min [facility] Creatinine Clearance (Chem N/A [facility] Total Complement (CH50) 57 U/mL >41 [facility] Comment on above: Age Male Female [...] to determine out of range values.Performed at: [facility] [address] Director: Usman Draper PhD, Phone: [phone] Nucleated erythrocytes [Pres ence] in Blood by Automated countOrdered By: Obie Hylton on 12-19-2023 Nucleated RBC Auto Ql (Bld) 0.2 /100{WBC} 0-0.5 [facility] Platelet mean volume [Entiti c volume] in Blood by Automated countOrdered By: Obie Hylton on 12-19-2023 Platelet mean volume (Bld) [Entitic vol] 8.7 fL Normal 6.3-10.7 [facility] Comment on above: Performed By: #### C 4, C3, CH50 #### [facility] , #### CBC, ESR, ADDONUAPLUS, CMP #### [facility] [address] Platelets [#/volume] in Bloo d by Automated countOrdered By: Obie Hylton on 12-19-2023 Platelets (Bld) [#/Vol] 201 10*3/uL Normal 150-450 [facility] Comment on above: Performed By: #### C 4, C3, CH50 #### [facility] , #### CBC, ESR, ADDONUAPLUS, CMP #### [facility] [address] [place] [address] Potassium [Moles/volume] in Serum or PlasmaOrdered By: Obie Hylton on 12-19-2023 Potassium [Moles/Vol] 4.3 mmol/L Normal 3.5-5.1 [facility] [place] Comment on above: Performed By: #### C 4, C3, CH50 #### [facility] , #### CBC, ESR, ADDONUAPLUS, CMP #### [facility] [address] [place] [address] Protein Test strip (U) [Mass /Vol]Ordered By: Obie Hylton on 12-19-2023 Protein (U) [Mass/Vol] Negative Negative [facility] Protein [Mass/volume] in Ser um or PlasmaOrdered By: Obie Hylton on 12-19-2023 Protein [Mass/Vol] 5.9 g/dL Low 6.4-8.9 [facility] Comment on above: Performed By: #### C 4, C3, CH50 #### [facility] , #### CBC, ESR, ADDONUAPLUS, CMP #### [address] Serum globulin measurement b y calculation (mass/volume)Ordered By: Obie Hylton on 12-19-2023 Globulin (S) [Mass/Vol] 2.0 g/dL [facility] Comment on above: Performed By: #### C 4, C3, CH50 #### [facility] , #### CBC, ESR, ADDONUAPLUS, CMP #### [facility] [address] [place] [address] Serum or plasma albumin/glob ulin mass ratioOrdered By: Obie Hylton on 12-19-2023 Albumin/Globulin [Mass ratio] 2.0 {ratio} [facility] Comment on above: Performed By: #### C 4, C3, CH50 #### [facility] , #### CBC, ESR, ADDONUAPLUS, CMP #### [address] Serum or plasma anion gap de terminationOrdered By: Obie Hylton on 12-19-2023 Anion gap [Moles/Vol] 9.3 mmol/L Normal 6.0-15.0 [facility] [place] Comment on above: Performed By: #### C 4, C3, CH50 #### [facility] , #### CBC, ESR, ADDONUAPLUS, CMP #### [address] Serum or plasma complement C 3 measurement (mass/volume)Ordered By: Obie Hylton on 12-19-2023 Complement C3 [Mass/Vol] 120 mg/dL 82-167 [facility] Comment on above: Performed at: [address] Director: Usman Draper PhD, Phone: [phone] Serum or plasma complement C 4 measurement (mass/volume)Ordered By: Obie Hylton on 12-19-2023 Complement C4 [Mass/Vol] 22 mg/dL 12-38 [facility] Sodium [Moles/volume] in Ser um or PlasmaOrdered By: Obie Hylton on 12-19-2023 Sodium [Moles/Vol] 139 mmol/L Normal 136-145 [facility] Comment on above: Performed By: #### C 4, C3, CH50 #### [facility] , #### CBC, ESR, ADDONUAPLUS, CMP #### [facility] [address] [place] [address] Specific gravity Test strip (U) [Rel density]Ordered By: Obie Hylton on 12-19-2023 Specific gravity (U) [Rel density] 1.020 1.001-1.03 0 [facility] Urea nitrogen [Mass/volume] in Serum or PlasmaOrdered By: Obieradha Hylton on 12-19-2023 Urea nitrogen [Mass/Vol] 33 mg/dL High 7-25 [facility] Comment on above: Performed By: #### C 4, C3, CH50 #### [facility] , #### CBC, ESR, ADDONUAPLUS, CMP #### [facility] [address] [place] [address] Urine appearanceOrdered By: Obieradha Hylton on 12-19-2023 Appearance (U) Clear Normal Clear [facility] Comment on above: Order Comment: Name Collection Type:: Clean-Voided Midstream Performed By: #### C 4, C3, CH50 #### [facility] , #### CBC, ESR, ADDONUAPLUS, CMP #### [address] Urobilinogen Test strip (U) [Mass/Vol]Ordered By: Obie Hylton on 12-19-2023 Urobilinogen (U) [Mass/Vol] Normal mg/dL Normal [facility] pH of Urine by Test stripOrd ered By: Obie Hylton on 12-19-2023 pH (U) 5.5 [pH] Normal 5.0-9.0 [facility] Comment on above: Order Comment: Name Collection Type:: Clean-Voided Midstream Performed By: #### C 4, C3, CH50 #### [facility] , #### CBC, ESR, ADDONUAPLUS, CMP #### [address] Basic Metabolic Profon 12-11 Anion gap [Moles/Vol] 11 mmol/L Normal - [facility] Comment on above: Performed By: #### B MP #### [facility] [address] [place] [address] Flotation Tank Operator: Christian Muir MD BUN/CRE Ratio 19 Normal 03-20 [facility] Comment on above: Performed By: #### B MP #### [facility] [address] [place], [place] [id number] Flotation [employer] Operator: Christian Muir MD Calcium [Mass/Vol] 9.1 mg/dL Normal 8.6-10.4 [facility] Comment on above: Performed By: #### B MP #### [place] [facility] [address], [place] [id number] [employer] Operator: Christian Muir MD Chloride [Moles/Vol] 104 mmol/L Normal 98-107 [facility] Comment on above: Performed By: #### B MP #### [facility] [address], [place] [id number] [employer] Operator: Christian Muir MD CO2 [Moles/Vol] 22 mmol/L Normal 20-31 [facility] Comment on above: Performed By: #### B MP #### [facility] [address], [place] [id number] [employer] Operator: Christian Muir MD Creatinine [Mass/Vol] 1.3 mg/dL High 0.5-0.9 [facility] Comment on above: Performed By: #### B MP #### [facility] [address], [place] [phone] [employer] Operator: Christian Muir MD GFR/1.73 sq M.predicted among non-blacks MDRD (S/P/Bld) [Vol rate/Area] 42 mL/min/{1.73_m2} Low >60 [facility] Comment on above: Result Comment: These [...] secretion. Performed By: #### B MP #### [facility] [address], [place] [id number] [employer] Operator: Christian Muir MD Glucose [Mass/Vol] 88 mg/dL Normal 70-99 [facility] Comment on above: Performed By: #### B MP #### [facility] [address], [place] [phone] [employer] Operator: Christian Muir MD Potassium [Moles/Vol] 4.3 mmol/L Normal 3.7-5.3 [facility] Comment on above: Performed By: #### B MP #### [facility] [address], [place] [id number] [employer] Operator: Christian Muir MD Sodium [Moles/Vol] 137 mmol/L Normal 135-144 [facility] Comment on above: Performed By: #### B MP #### [facility] [address], [place] [phone] [employer]ot[employer] Operator: Christian Muir MD Urea nitrogen [Mass/Vol] 25 mg/dL High 8-23 [facility] Comment on above: Performed By: #### B MP #### [facility] [address], [place] [phone] [employer] Operator: Christian Muir MD Basic Metabolic Panelon 05-1 Anion gap [Moles/Vol] 13 mmol/L 9 - 17 mmol/L [facility] Calcium [Mass/Vol] 9.1 mg/dL 8.6 - 10. 4 mg/dL [facility] Chloride [Moles/Vol] 104 mmol/L 98 - 10 7 mmol/L [facility] CO2 [Moles/Vol] 20 mmol/L 20 - 31 mmol/L [facility] Creatinine [Mass/Vol] 1.1 mg/dL High 0.5 - 0.9 mg/dL [facility] Est, Glom Filt Rate 51 Low - [facility] Comment on above: These results are [...] 153 mg/dL High 70 - 99 mg/dL [facility] Interpretation and review of laboratory results Abnormal [facility] Potassium [Moles/Vol] 3.3 mmol/L Low 3.7 - 5.3 mmol/L [facility] Sodium [Moles/Vol] 137 mmol/L 135 - 144 mmol/L [facility] Urea nitrogen [Mass/Vol] 26 mg/dL High 8 - 23 mg/dL [facility] Urea nitrogen/Creatinine [Mass ratio] 24 mg/mg High - [facility] Basic Metabolic Profon 11-13 Anion gap [Moles/Vol] 13 mmol/L Normal - [facility] Comment on above: Performed By: #### T DAVE, CBC, TROPI, BMP #### [facility] [address] [place] [address] [employer]ot[employer] Operator: Christian Muir MD BUN/CRE Ratio 24 High - [facility] Comment on above: Performed By: #### T DAVE, CBC, TROPI, BMP #### [facility] [address] [place] [address] [employer] Operator: Christian Muir MD Calcium [Mass/Vol] 9.1 mg/dL Normal 8.6-10.4 [facility] Comment on above: Performed By: #### T DAVE, CBC, TROPI, BMP #### [facility] [address] [place] [address] [employer] Operator: Christian Muir MD Chloride [Moles/Vol] 104 mmol/L Normal 98-107 [facility] Comment on above: Performed By: #### T SH, CBC, TROPI, BMP #### [facility] [address] [place] [address] [employer] Operator: Christian Muir MD CO2 [Moles/Vol] 20 mmol/L Normal 20-31 [facility] Comment on above: Performed By: #### T MICKEY ACOSTA TROPI, BMP #### [facility] [address] [place] [address] [employer] Operator: Christian Muir MD Creatinine [Mass/Vol] 1.1 mg/dL High 0.5-0.9 [facility] Comment on above: Performed By: #### T MICKEY ACOSTA TROPPacheco, BMP #### [facility] [address] [place] [address] [employer] Operator: Christian Muir MD GFR/1.73 sq M.predicted among non-blacks MDRD (S/P/Bld) [Vol rate/Area] 51 mL/min/{1.73_m2} Low >60 [facility] Comment on above: Result Comment: These [...] #### T MICKEY ACOSTA TROPI, BMP #### [facility] [address] [place] [address] [employer] Operator: Christian Muir MD Glucose [Mass/Vol] 153 mg/dL High 70-99 [facility] Comment on above: Performed By: #### T MICKEY ACOSTA TROPI, BMP #### [facility] [address] [place] [address] [employer] Operator: Christian Muir MD Potassium [Moles/Vol] 3.3 mmol/L Low 3.7-5.3 [facility] Comment on above: Performed By: #### T MICKEY ACOSTA, TROPI, BMP #### [facility] [address] [place] [address] [employer] Operator: Christian Muir MD Sodium [Moles/Vol] 137 mmol/L Normal 135-144 [facility] Comment on above: Performed By: #### T SH, CBC, TROPI, BMP #### [facility] [address] [place] [address] [employer] Operator: Christian Muir MD Urea nitrogen [Mass/Vol] 26 mg/dL High 8-23 [facility] Comment on above: Performed By: #### T SH, CBC, TROPI, BMP #### [facility] [address] [place] [address] [employer] Operator: Christian Muir MD CBCon 11-14-2023 Erythrocyte distribution width (RBC) [Ratio] 14.7 % 12.1 - 15.2 % [facility] Hematocrit (Bld) [Volume fraction] 37.0 % 36.0 - 46.0 % [facility] Hemoglobin (Bld) [Mass/Vol] 12.2 g/dL 12.0 - 16.0 g/dL [facility] Interpretation and review of laboratory results Abnormal [facility] MCH (RBC) [Entitic mass] 31.1 pg 26.0 - 34.0 pg [facility] MCHC (RBC) [Mass/Vol] 33.0 g/dL 31.0 - 37.0 g/dL [facility] MCV (RBC) [Entitic vol] 94.4 fL 80.0 - 100.0 fL [facility] Platelet mean volume (Bld) [Entitic vol] 10.3 fL 6.0 - 12.0 fL [facility] Platelets (Bld) [#/Vol] 179 10*3/uL [facility] RBC (Bld) [#/Vol] 3.92 10*6/uL Low 4.00 - 5.20 m/uL [facility] WBC other (Bld) [#/Vol] 4.3 [facility] Erythrocyte distribution width (RBC) [Ratio] 14.7 % Normal 12.1-15.2 [facility] Comment on above: Performed By: #### T DAVE, CBC, TROPI, BMP #### [facility] [address] [place] [address] [employer] Operator: Christian Muir MD Hematocrit (Bld) [Volume fraction] 37.0 % Normal 36.0-46.0 [facility] Comment on above: Performed By: #### T DAVE, CBC, TROPI, BMP #### [facility] [address] [place] [address] [employer] Operator: Christian Muir MD Hemoglobin (Bld) [Mass/Vol] 12.2 g/dL Normal 12.0-16.0 [facility] Comment on above: Performed By: #### T DAVE, CBC, TROPI, BMP #### [facility] [address] [place] [address] [employer] Operator: Christian Muir MD MCH (RBC) [Entitic mass] 31.1 pg Normal 26.0-34.0 [facility] Comment on above: Performed By: #### T DAVE, CBC, TROPI, BMP #### [facility] [address] [place] [address] [employer] Operator: Christian Muir MD MCHC (RBC) [Mass/Vol] 33.0 g/dL Normal 31.0-37.0 [facility] Comment on above: Performed By: #### T DAVE, CBC, TROPI, BMP #### [facility] [address] [place] [address] [employer] Operator: Christian Muir MD MCV (RBC) [Entitic vol] 94.4 fL Normal 80.0-100.0 [facility] Comment on above: Performed By: #### T DAVE, CBC, TROPI, BMP #### [facility] [address] [facility] [place] [address] [employer] Operator: Christian Muir MD Platelet mean volume (Bld) [Entitic vol] 10.3 fL Normal 6.0-12.0 [facility] Comment on above: Performed By: #### T SH, CBC, TROPI, BMP #### [facility] [address] [facility] [place] [address] [employer] Operator: Christian Muir MD Platelets (Bld) [#/Vol] 179 10*3/uL Normal 140-450 [facility] Comment on above: Performed By: #### T DAVE, CBC, TROPI, BMP #### [facility] [address] [place] [address] [employer] Operator: Christian Muir MD RBC (Bld) [#/Vol] 3.92 10*6/uL Low 4.00-5.20 [facility] Comment on above: Performed By: #### T SH, CBC, TROPI, BMP #### [facility] [address] [place] [phone] [employer] Operator: Christian Muir MD WBC (Bld) [#/Vol] 4.3 10*3/uL Normal 3.5-11.0 [facility] Comment on above: Performed By: #### T SH, CBC, TROPI, BMP #### [facility] [address] [place] [phone] [employer] Operator: Christian Muir MD No Panel Informationon 11-13 [facility] TSHon 11-14-2023 TSH Qn 1.80 m[IU]/L [facility] Thyroid Stim. Horm.on 2023 Thyroid Stim. Horm. 1.80 uIU/mL Normal 0.30-5.00 [facility] Comment on above: Performed By: #### T SH, CBC, TROPI, BMP #### [facility] [address] [place] [phone] [employer] Operator: Christian Muir MD Troponinon 11-14-2023 Troponin I.cardiac High sensitivity method [Mass/Vol] 10 ng/L 0 - 14 ng/L [facility] Comment on above: High Sensitivity Tro ponin values cannot be compared with other Troponin methodologies. Troponin, High Sens 10 ng/L Normal 0-14 [facility] Comment on above: Result Comment: High Sensitivity Troponin values cannot be compared with other Troponin methodologies. Performed By: #### T SH, CBC, TROPI, BMP #### [facility] [address] [place] [address] [employer] Operator: Christian Muir MD CBC with Auto Differentialon 10-23-2023 Absolute Bands 0.18 [facility] Bands 4 % 0 - 10 % [facility] Basophils (Bld) [#/Vol] [facility] Basophils/100 WBC (Bld) 0 - 2 % [facility] Eosinophils % 0 - 5 % [facility] Eosinophils (Bld) [#/Vol] [facility] Erythrocyte distribution width (RBC) [Ratio] 14.7 % 12.1 - 15.2 % [facility] Hematocrit (Bld) [Volume fraction] 39.4 % 36.0 - 46.0 % [facility] Hemoglobin (Bld) [Mass/Vol] 12.9 g/dL 12.0 - 16.0 g/dL [facility] Immature granulocytes (Bld) [#/Vol] [facility] Immature granulocytes/100 WBC (Bld) 0 % [facility] Interpretation and review of laboratory results Abnormal [facility] Lymphocytes/100 WBC (Bld) 5 % Low 15 - 40 % [facility] Lymphocytes/100 WBC (Bld) 0.23 % Low [facility] MCH (RBC) [Entitic mass] 30.6 pg 26.0 - 34.0 pg [facility] MCHC (RBC) [Mass/Vol] 32.7 g/dL 31.0 - 37.0 g/dL [facility] MCV (RBC) [Entitic vol] 93.4 fL 80.0 - 100.0 fL [facility] Monocytes/100 WBC (Bld) 6 % 4 - 8 % [facility] Monocytes/100 WBC (Bld) 0.27 % [facility] Morphology Igor (Bld) [Interp] Platelet morphology normal. [facility] Morphology Igor (Bld) [Interp] RBC morphology normal. [facility] Morphology Igor (Bld) [Interp] Manual Differential Performed [facility] Neutrophils/100 WBC (Bld) 85 % High 47 - 75 % [facility] Platelet mean volume (Bld) [Entitic vol] 9.4 fL 6.0 - 12.0 fL [facility] Platelets (Bld) [#/Vol] 152 10*3/uL [facility] RBC (Bld) [#/Vol] 4.22 10*6/uL 4.00 - 5.20 m/uL [facility] Segmented neutrophils/100 WBC (Bld) 3.82 % [facility] WBC other (Bld) [#/Vol] 4.5 [facility] CBC with Diffon 10-23-2023 Abs. Bands 0.18 k/uL Normal 0.0-1.0 [facility] Comment on above: Performed By: #### C OVRB #### [facility] [address] [place] [address] [employer] Operator: Christian Muir MD Abs. Basophil Normal 0.0-0.2 [facility] Comment on above: Performed By: #### C OVRB #### [facility] [address] [facility] [place] [address] [employer] Operator: Christian Muir MD Abs. Eosinophil Normal 0.0-0.4 [facility] Comment on above: Performed By: #### C OVRB #### [facility] [address] [place] [address] [employer] Operator: Christian Muir MD Abs.Imm.Granulocyte Normal 0.00-0.30 [facility] Comment on above: Performed By: #### C OVRB #### [facility] [address], [place] [phone] [employer] Operator: Christian Muir MD Abs.Neutrophil (Seg) 3.82 k/uL Normal 2.5-7.0 [facility] Comment on above: Performed By: #### C OVRB #### [facility] [address], [place] [phone] [employer] Operator: Christian Muir MD Bands 4 % Normal 0-10 [facility] Comment on above: Performed By: #### C OVRB #### [facility] [address], [place] [phone] [employer]ot[employer] Tank Operator: Chrisitan Muir MD Basophil Normal 0-2 [facility] Comment on above: Performed By: #### C OVRB #### [facility] [address], [place] [phone] [employer]ot[employer] Operator: Christian Muir MD Eosinophil Normal 0-5 [facility] Comment on above: Performed By: #### C OVRB #### [facility] [address], [place] [phone] [employer] Operator: Christian Muir MD Immature Granulocyte Normal 0 [facility] Comment on above: Performed By: #### C OVRB #### [facility] [address] [place] [address] [employer] Operator: Christian Muir MD Lymphocytes (Bld) [#/Vol] 0.23 10*3/uL Low 1.0-4.8 [facility] Comment on above: Performed By: #### C OVRB #### [facility] [address], [place] [phone] [employer] Operator: Christian Muir MD Lymphocytes/100 WBC (Bld) 5 % Low 15-40 [facility] Comment on above: Performed By: #### C OVRB #### [facility] [address], [place] [phone] [employer] Operator: Christian Muir MD Monocytes (Bld) [#/Vol] 0.27 10*3/uL Normal 0.0-1.0 [facility] Comment on above: Performed By: #### C OVRB #### [facility] [address], [place] [phone] [employer] Operator: Christian Muir MD Monocytes/100 WBC (Bld) 6 % Normal 4-8 [facility] Comment on above: Performed By: #### C OVRB #### [facility] [address], [place] [phone] [employer] Operator: Christian Muir MD Morphology Igor (Bld) [Interp] Platelet morphology normal. Normal [facility] Comment on above: Result Comment: RBC morphology normal. Manual Differential Performed Performed By: #### C OVRB #### [facility] [address] [place] [address] [employer] Operator: Christian Muir MD Neutrophil (Seg) 85 % High 47-75 [facility] Comment on above: Performed By: #### C OVRB #### [facility] [address] [place] [address] [employer] Operator: Christian Muir MD Erythrocyte distribution width (RBC) [Ratio] 14.7 % Normal 12.1-15.2 [facility] Comment on above: Performed By: #### C OVRB #### [facility] [address] [place] [address] [employer] Operator: Christian Muir MD Hematocrit (Bld) [Volume fraction] 39.4 % Normal 36.0-46.0 [facility] Comment on above: Performed By: #### C OVRB #### [facility] [address] [place] [address] [employer] Operator: Christian Muir MD Hemoglobin (Bld) [Mass/Vol] 12.9 g/dL Normal 12.0-16.0 [facility] Comment on above: Performed By: #### C OVRB #### [facility] [address], [place] [phone] [employer]ot[employer] Tank Operator: Christian Muir MD MCH (RBC) [Entitic mass] 30.6 pg Normal 26.0-34.0 [facility] Comment on above: Performed By: #### C OVRB #### [facility] [address] [place] [address] [employer]ot[employer] Operator: Christian Muir MD MCHC (RBC) [Mass/Vol] 32.7 g/dL Normal 31.0-37.0 [facility] Comment on above: Performed By: #### C OVRB #### [facility] [address] [place] [address] [employer] Operator: Christian Muir MD MCV (RBC) [Entitic vol] 93.4 fL Normal 80.0-100.0 [facility] Comment on above: Performed By: #### C OVRB #### [facility] [address] [place] [address] [employer] Operator: Christian Muir MD Platelet mean volume (Bld) [Entitic vol] 9.4 fL Normal 6.0-12.0 [facility] Comment on above: Performed By: #### C OVRB #### [facility] [address] [place] [address] [employer] Operator: Christian Muir MD Platelets (Bld) [#/Vol] 152 10*3/uL Normal 140-450 [facility] Comment on above: Performed By: #### C OVRB #### [facility] [address] [place] [address] [employer]ot[employer] Operator: Christian Muir MD RBC (Bld) [#/Vol] 4.22 10*6/uL Normal 4.00-5.20 [facility] Comment on above: Performed By: #### C OVRB #### [facility] [address], [place] [phone] [employer] Operator: Christian Muir MD WBC (Bld) [#/Vol] 4.5 10*3/uL Normal 3.5-11.0 [facility] Comment on above: Performed By: #### C OVRB #### [facility] [address], [place] [phone] [employer] Operator: Christian Muir MD Comp Metabolic Profon 2023 Albumin [Mass/Vol] 3.9 g/dL Normal 3.5-5.2 [facility] Comment on above: Performed By: #### T CARLOS FRANCO, CP #### [facility] [address], [place] [phone] [employer] Operator: Christian Muir MD Alkaline Phos 49 U/L Normal 35-104 [facility] Comment on above: Performed By: #### CARLOS QUEVEDO, CP #### [facility] [address], [place] [phone] [employer]ot[employer] Tank Operator: Christian Muir MD ALT [Catalytic activity/Vol] 12 U/L Normal 5-33 [facility] Comment on above: Performed By: #### CARLOS QUEVEDO, CP #### [facility] [address], [place] [phone] [employer] Operator: Christian Muir MD Anion gap [Moles/Vol] 15 mmol/L Normal 9-17 [facility] Comment on above: Performed By: #### CARLOS QUEVEDO, CP #### [facility] [address], [place] [phone] [employer] Tank Operator: Christian Muir MD AST [Catalytic activity/Vol] 15 U/L Normal <32 [facility] Comment on above: Performed By: #### T CARLOS FRANCO, CP #### [facility] [address], [place] [phone] [employer] Tank Operator: Christian Muir MD Bilirubin [Mass/Vol] 0.4 mg/dL Normal 0.3-1.2 [facility] Comment on above: Performed By: #### T CARLOS FRANCO, CP #### [facility] [address] [place] [phone] [employer] Operator: Christian Muir MD BUN/CRE Ratio 29 High 9-20 [facility] Comment on above: Performed By: #### T CARLOS FRANCO, CP #### [facility] [address] [place] [address] [employer] Operator: Christian Muir MD Calcium [Mass/Vol] 8.9 mg/dL Normal 8.6-10.4 [facility] Comment on above: Performed By: #### T CARLOS FRANCO, CP #### [facility] [address] [place] [address] [employer] Operator: Christian Muir MD Chloride [Moles/Vol] 107 mmol/L Normal 98-107 [facility] Comment on above: Performed By: #### T CARLOS FRANCO, CP #### [facility] [address] [place] [address] [employer] Operator: Christian Muir MD CO2 [Moles/Vol] 17 mmol/L Low 20-31 [facility] Comment on above: Performed By: #### T CARLOS FRANCO, CP #### [facility] [address] [place] [address] [employer]ot[employer] Tank Operator: Christian Muir MD Creatinine [Mass/Vol] 1.1 mg/dL High 0.5-0.9 [facility] Comment on above: Performed By: #### T CARLOS FRANCO, CP #### [facility] [address], [place] [phone] [employer] Operator: Christian Muir MD GFR/1.73 sq M.predicted among non-blacks MDRD (S/P/Bld) [Vol rate/Area] 51 mL/min/{1.73_m2} Low >60 [facility] Comment on above: Result Comment: These [...] Performed By: #### CARLOS QUEVEDO, CP #### [facility] [address] [place] [address] [employer] Operator: Christian Muir MD Glucose [Mass/Vol] 136 mg/dL High 70-99 [facility] Comment on above: Performed By: #### CARLOS QUEVEDO CP #### [facility] [address] [place] [address] [employer] Operator: Christian Muir MD Potassium [Moles/Vol] 3.6 mmol/L Low 3.7-5.3 [facility] Comment on above: Performed By: #### CARLOS QUEVEDO, CP #### [facility] [address], [place] [phone] [employer] Operator: Christian Muir MD Protein [Mass/Vol] 6.6 g/dL Normal 6.4-8.3 [facility] Comment on above: Performed By: #### CARLOS QUEVEDO, CP #### [facility] [address] [place] [address] [employer] Operator: Christian Muir MD Sodium [Moles/Vol] 139 mmol/L Normal 135-144 [facility] Comment on above: Performed By: #### T CARLOS FRANCO, CP #### [facility] [address] [place] [address] [employer] Operator: Christian Muir MD Urea nitrogen [Mass/Vol] 32 mg/dL High 8- [facility] Comment on above: Performed By: #### T CARLOS FRANCO, CP #### [facility] [address] [place] [address] [employer] Operator: Christian Muir MD Rust Metabolic Pane [facility] 10-23-2023 Albumin [Mass/Vol] 3.9 g/dL 3.5 - 5.2 g/dL [facility] ALP [Catalytic activity/Vol] 49 U/L 35 - 104 U/L [facility] ALT [Catalytic activity/Vol] 12 U/L 5 - 33 U/L [facility] Anion gap [Moles/Vol] 15 mmol/L 9 - 17 mmol/L [facility] AST [Catalytic activity/Vol] 15 U/L NINF - 32 U/L [facility] Bilirubin [Mass/Vol] 0.4 mg/dL 0.3 - 1 .2 mg/dL [facility] Calcium [Mass/Vol] 8.9 mg/dL 8.6 - 10. 4 mg/dL [facility] Chloride [Moles/Vol] 107 mmol/L 98 - 10 7 mmol/L [facility] CO2 [Moles/Vol] 17 mmol/L Low 20 - 31 mmol/L [facility] Creatinine [Mass/Vol] 1.1 mg/dL High 0.5 - 0.9 mg/dL [facility] GFR/1.73 sq M.predicted MDRD (S/P/Bld) [Vol rate/Area] 51 mL/min/{1.73_m2} Low - PINF [facility] Comment on above: These results [...] 136 mg/dL High 70 - 99 mg/dL [facility] Interpretation and review of laboratory results Abnormal [facility] Potassium [Moles/Vol] 3.6 mmol/L Low 3.7 - 5.3 mmol/L [facility] Protein [Mass/Vol] 6.6 g/dL 6.4 - 8.3 g/dL [facility] Sodium [Moles/Vol] 139 mmol/L 135 - 144 mmol/L [facility] Urea nitrogen [Mass/Vol] 32 mg/dL High 8 - 23 mg/dL [facility] Urea nitrogen/Creatinine [Mass ratio] 29 mg/mg High 9 - 20 [facility] [facility] Microscopic Urinalysison - [facility] Bacteria LM Ql (Urine sed) RARE Abnormal None [facility] Epithelial cells LM.HPF (Urine sed) [#/Area] 5 TO 10 /HPF [facility] Interpretation and review of laboratory results Abnormal [facility] RBC LM.HPF (Urine sed) [#/Area] 2 TO 5 [facility] WBC LM.HPF (Urine sed) [#/Area] NONE SEEN 0 /HPF [facility] Troponinon 10-23-2023 Interpretation and review of laboratory results Abnormal [facility] Troponin I.cardiac High sensitivity method [Mass/Vol] 19 ng/L High 0 - 14 ng/L [facility] Comment on above: High Sensitivity Tro ponin values cannot be compared with other Troponin methodologies. [facility] Troponin, High Sens 19 ng/L High 0-14 [facility] Comment on above: Result Comment: High Sensitivity Troponin values cannot be compared with other Troponin methodologies. Performed By: #### C OVRB #### [facility] [address] [place] [address] [employer]otation Tank Operator: Christian Muir MD Interpretation and review of laboratory results Abnormal [facility] Troponin I.cardiac High sensitivity method [Mass/Vol] 15 ng/L High 0 - 14 ng/L [facility] Comment on above: High Sensitivity Tro ponin values cannot be compared with other Troponin methodologies. [facility] Troponin, High Sens 15 ng/L High 0-14 [facility] Comment on above: Result Comment: High Sensitivity Troponin values cannot be compared with other Troponin methodologies. Performed By: #### C OVRB #### [facility] [address] [place] [address] [employer]otation Tank Operator: Christian Muir MD UA w/Reflex Cultureon 2023 Bilirubin, SemiQt,Ur Negative Normal NEG [facility] Comment on above: Performed By: #### F LUABA #### [facility] [address] [place] [address] [employer]otation [employer] Operator: Christian Muir MD Blood, Urine 2+ Abnormal NEG [facility] Comment on above: Performed By: #### F LUABA #### [facility] [address], [place] [phone] [employer]otation Tank Operator: Christian Muir MD Clarity (U) Clear Normal CLEAR [facility] Comment on above: Performed By: #### F LUABA #### [facility] [address] [place] [address] [employer]otation [employer] Operator: Christian Muir MD Color (U) Yellow Normal YEL [facility] Comment on above: Performed By: #### F LUABA #### [facility] [address] [facility] [place] [phone] [employer]otation [employer] Operator: Christian Muir MD Comment Normal [facility] Comment on above: Performed By: #### F LUABA #### [facility] [address], [place] [phone] Flotation Tank Operator: Christian Muir MD Glucose Ql (U) Negative Normal NEG [facility] Comment on above: Performed By: #### F LUABA #### [facility] [address] [place] [address] [employer]otation [employer] Operator: Christian Muir MD Ketones Ql (U) TRACE Abnormal NEG [facility] Comment on above: Performed By: #### F LUABA #### [facility] [address], [place] [phone] [employer]otation Tank Operator: Christian Muir MD Leukocyte esterase Test strip Ql (U) Negative Normal NEG [facility] Comment on above: Performed By: #### F LUABA #### [facility] [address], [place] [phone] [employer]otation Tank Operator: Christian Muir MD Nitrite,Ur Negative Normal NEG [facility] Comment on above: Performed By: #### F LUABA #### [facility] [address] [place] [phone] Flotation Tank Operator: Christian Miur MD PH,Ur 5.0 Normal 5.0-8.0 [facility] Comment on above: Performed By: #### F LUABA #### [facility] [address], [place] [phone] [employer]otation [employer] Operator: Christian Muir MD Protein Ql (U) 1+ mg/dL Abnormal NEG [facility] Comment on above: Performed By: #### F LUABA #### [facility] [address] [place] [address] [employer]otation [employer] Operator: Christian Muir MD Spec. Ambler,Ur 1.020 Normal 1.005-1.03 0 [facility] Comment on above: Performed By: #### F LUABA #### [facility] [address], [place] [phone] Flotation Tank Operator: Christian Muir MD Urobilinogen,Ur Normal Normal 0.0-1.0 [facility] Comment on above: Performed By: #### F LUABA #### [facility] [address] [place] [address] Flotation Tank Operator: Christian Muir MD Urinalysis with Reflex to Cu ltureon 10-23-2023 Bilirubin Ql (U) Negative NEGATIVE [facility] Clarity (U) Clear Clear [facility] Color (U) Yellow Yellow [facility] Comment [facility] Glucose Test strip (U) [Mass/Vol] Negative NEGATIVE mg/dL [facility] Hemoglobin Auto test strip Ql (U) 2+ Abnormal NEGATIVE [facility] Interpretation and review of laboratory results Abnormal [facility] Ketones (U) [Mass/Vol] TRACE Abnormal NEGATIVE mg/dL [facility] Leukocyte esterase Test strip Ql (U) Negative NEGATIVE [facility] Nitrite Ql (U) Negative NEGATIVE [facility] pH (U) 5.0 [pH] 5.0 - 8.0 [facility] Protein (U) [Mass/Vol] 1+ Abnormal NEGATIVE mg/dL [facility] Specific gravity (U) [Rel density] 1.020 1.005 - 1.030 [facility] Urobilinogen Qn (U) Normal 0.0 - 1. 0 EU/dL [facility] Urinalysis,Microon 4 ----- Normal [facility] Comment on above: Performed By: #### F LUABA #### [facility] [address] [place] [address] Flotation Tank Operator: Christian Muir MD Bacteria RARE Abnormal NONE [facility] Comment on above: Performed By: #### F LUABA #### [facility] [address] [place] [address] [employer]otation Tank Operator: Christian Muir MD Epithelial cells LM Ql (Urine sed) 5 TO 10 Normal [facility] Comment on above: Performed By: #### F LUABA #### [facility] [address] [place] [address] Flotation Tank Operator: Christian Muir MD Urine RBC's 2 TO 5 Normal 0-2 [facility] Comment on above: Performed By: #### F LUABA #### [facility] [address] [place] [address] Flotation Tank Operator: Christian Muir MD Urine WBC's NONE SEEN Normal 0 [facility] Comment on above: Performed By: #### F LUABA #### [facility] [address], [place] [phone] Flotation Tank Operator: Christian Muir MD BUN + Creatinineon Creatinine [Mass/Vol] 1.2 mg/dL High 0.5-0.9 [facility] Comment on above: Performed By: #### B UNCRT #### [facility] [address] [place] [address] [employer]otation Tank Operator: Christian Muir MD GFR/1.73 sq M.predicted among non-blacks MDRD (S/P/Bld) [Vol rate/Area] 46 mL/min/{1.73_m2} Low >60 [facility] Comment on above: Result Comment: These [...] secretion. Performed By: #### B UNCRT #### [facility] [address] [place] [address] [employer]otation Tank Operator: Christian Muir MD Urea nitrogen [Mass/Vol] 35 mg/dL High 02-20 [facility] Comment on above: Performed By: #### B UNCRT #### [facility] [address] [place] [address] Flotation Tank Operator: Christian Muir MD CT UROGRAMon 10-22-2023 CT [...] Valentin Jr., MD 10/22/23 Final result Normal [facility] Cult,Urineon 10-02-2023 Cult,Urine Specimen Description .CLEAN [...] Tobramycin <=1 SUSCEPTIBLE Trimethoprim/Sulfa <=20 SUSCEPTIBLE Susceptible [facility] Comment on above: Performed By: #### F ROYAL #### [facility] [address] [place] [address] [employer]otation Tank Operator: Christian Muir MD Urinalysis w/ Microon 2023 ----- Normal [facility] Comment on above: Performed By: #### U AMIC #### [facility] [address], [place] [phone] [employer]otation Tank Operator: Christian Muir MD Bacteria 2+ Abnormal NONE [facility] Comment on above: Performed By: #### U AMIC #### [facility] [address], [place] [phone] Flotation Tank Operator: Christian Muir MD Bilirubin, SemiQt,Ur Negative Normal NEG [facility] Comment on above: Performed By: #### U AMIC #### [facility] [address] [place] [address] Flotation Tank Operator: Christian Muir MD Blood, Urine 2+ Abnormal NEG [facility] Comment on above: Performed By: #### U AMIC #### [facility] [address], [place] [phone] Flotation Tank Operator: Christian Muir MD Clarity (U) Cloudy Abnormal CLEAR [facility] Comment on above: Performed By: #### U AMIC #### [facility] [address], [place] [phone] Flotation Tank Operator: Christian Muir MD Color (U) Yellow Normal YEL [facility] Comment on above: Performed By: #### U AMIC #### [facility] [address], [place] [phone] Flotation Tank Operator: Christian Muir MD Comment Normal [facility] Comment on above: Performed By: #### U AMIC #### [facility] [address], [place] [phone] Flotation Tank Operator: Christian Muir MD Epithelial cells LM Ql (Urine sed) 2 TO 5 Normal [facility] Comment on above: Performed By: #### U AMIC #### [facility] [address], [place] [phone] Flotation Tank Operator: Christian Muir MD Glucose Ql (U) Negative Normal NEG [facility] Comment on above: Performed By: #### U AMIC #### [facility] [address] [place] [address] [employer]otation Tank Operator: Christian Muir MD Ketones Ql (U) Negative Normal NEG [facility] Comment on above: Performed By: #### U AMIC #### [facility] [address] [place] [address] [employer]otation Tank Operator: Christian Muir MD Leukocyte esterase Test strip Ql (U) 3+ Abnormal NEG [facility] Comment on above: Performed By: #### U AMIC #### [facility] [address], [place] [phone] Flotation Tank Operator: Christian Muir MD Nitrite,Ur Negative Normal NEG [facility] Comment on above: Performed By: #### U AMIC #### [facility] [address] [place] [address] Flotation Tank Operator: Christian Muir MD PH,Ur 6.5 Normal 5.0-8.0 [facility] Comment on above: Performed By: #### U AMIC #### [facility] [address] [place] [address] [employer]otation Tank Operator: Christian Muir MD Protein Ql (U) TRACE Abnormal NEG [facility] Comment on above: Performed By: #### U AMIC #### [facility] [address] [place] [address] [employer]otation Tank Operator: Christian Muir MD Spec. Ambler,Ur 1.010 Normal 1.005-1.03 0 [facility] Comment on above: Performed By: #### U AMIC #### [facility] [address], [place] [phone] Flotation Tank Operator: Christian Muir MD Urine RBC's 10 TO 20 Normal 0-2 [facility] Comment on above: Performed By: #### U AMIC #### [facility] [address] [place] [address] Flotation Tank Operator: Christian Muir MD Urine WBC's 20 TO 50 Normal 0 [facility] Comment on above: Performed By: #### U AMIC #### [facility] [address] [place] [address] Flotation Tank Operator: Christian Muir MD Urobilinogen,Ur Normal Normal 0.0-1.0 [facility] Comment on above: Performed By: #### U AMIC #### [facility] [address] [place] [address] [employer]otation Tank Operator: Christian Muir MD IntraOperative Documentson 0 09-23-2023 IntraOperative Documents [id number] Normal [facility] Result Letter Officeon 09-22 Result Letter Office (Inserted Image. Un able to display) September 23, 2023 MARY JANE RIOS [address] [place] [address] : 1945 Below is a summary of [...] if you wish to make an appointment. [facility] [phone] Normal [facility] Alanine aminotransferase [En zymatic activity/volume] in Serum or PlasmaOrdered By: Nuvia Sanchez on 09-19-2023 ALT [Catalytic activity/Vol] 12 U/L 7-52 [facility] Albumin [Mass/volume] in Ser um or Plasma by Bromocresol green (BCG) dye binding methoOrdered By: Nuvia Sanchez on 09-19-2023 Albumin BCG dye [Mass/Vol] 3.9 g/dL 3.5-5.7 [facility] Alkaline phosphatase [Enzyma tic activity/volume] in Serum or PlasmaOrdered By: Nuvia Sanchez on 09-19-2023 ALP [Catalytic activity/Vol] 59 U/L 34-104 [facility] Aspartate aminotransferase [ Enzymatic activity/volume] in Serum or PlasmaOrdered By: Nuvia Sanchez on 09-19-2023 AST [Catalytic activity/Vol] 13 U/L 13-39 [facility] Automated erythrocytes count in urine sediment (number/area)Ordered By: Nuvia Sanchez on 09-19-2023 RBC Auto (Urine sed) [#/Area] 0-1 [HPF] 0-4 [facility] Automated leukocytes count i n urine sediment (number/area)Ordered By: Nuvia Sanchez on 09-19-2023 WBC Auto (Urine sed) [#/Area] None seen [HPF] 0-4 [facility] Basophils Auto (Bld) [#/Vol] Ordered By: Nuvia Sanchez on 09-19-2023 Basophils (Bld) [#/Vol] 0.0 10*3/uL 0.0-0.2 [facility] Basophils/100 WBC Auto (Bld) Ordered By: Nuvia Sanchez on 09-19-2023 Basophils/100 WBC (Bld) 0.3 % . [facility] Bilirubin Test strip Ql (U)O rdered By: Nuvia Sanchez on 09-19-2023 Bilirubin Ql (U) Negative Negative [facility] Bilirubin.total [Mass/volume ] in Serum or PlasmaOrdered By: Nuvia Sanchez on 09-19-2023 Bilirubin [Mass/Vol] 0.2 mg/dL 0.3-1.0 [facility] Calcium [Mass/volume] in Ser um or PlasmaOrdered By: Nuvia Sanchez on 09-19-2023 Calcium [Mass/Vol] 8.6 mg/dL 8.6-10.3 [facility] Carbon dioxide, total [Moles /volume] in Serum or PlasmaOrdered By: Nuvia Sanchez on 09-19-2023 CO2 [Moles/Vol] 24.3 mmol/L 21.0-31.0 [facility] Chloride [Moles/volume] in S liat or PlasmaOrdered By: Nuvia Sanchez on 09-19-2023 Chloride [Moles/Vol] 107 mmol/L 98-107 [facility] Color Auto (U)Ordered By: Rajani Patel on 09-19-2023 Color (U) Yellow Yellow [facility] Creatinine [Mass/volume] in Serum or PlasmaOrdered By: Nuvia Sanchez on 09-19-2023 Creatinine [Mass/Vol] 1.35 mg/dL 0.60-1.20 [facility] Eosinophils Auto (Bld) [#/Vo l]Ordered By: Nuvia Sanchez on 09-19-2023 Eosinophils (Bld) [#/Vol] 0.1 10*3/uL 0.0-0.45 [facility] Eosinophils/100 WBC Auto (Bl d)Ordered By: Nuvia Sanchez on 09-19-2023 Eosinophils/100 WBC (Bld) 0.8 % . [facility] Erythrocyte distribution wid th Auto (RBC) [Ratio]Ordered By: Nuvia Sanchez on 09-19-2023 Erythrocyte distribution width (RBC) [Ratio] 15.2 % 11.9-15.3 [facility] Erythrocyte sedimentation ra te by Photometric methodOrdered By: Nuvia Sanchez on 09-19-2023 ESR Photometric method (Bld) [Velocity] 15 mm/hr 0-29 [facility] Globulin Calc (S) [Mass/Vol] Ordered By: Nuvia Sanchez on 09-19-2023 Globulin (S) [Mass/Vol] 2.2 g/dL [facility] Glucose [Mass/volume] in Ser um or PlasmaOrdered By: Nuvia Sanchez on 09-19-2023 Glucose [Mass/Vol] 84 mg/dL 70-100 [facility] Comment on above: ADA recommended refe rence rangeRandom Glucose Reference Range is dependent on time and content of last meal. Glucose of more than 200 mg/dL in a nonstressed, ambulatory subject supports the diagnosis of Diabetes Mellitus. Hematocrit Auto (Bld) [Volum e fraction]Ordered By: Nuvia Sanchez on 09-19-2023 Hematocrit (Bld) [Volume fraction] 34.5 % 34.0-46.4 [facility] Hemoglobin [Mass/volume] in BloodOrdered By: Nuvia Sanchez on 09-19-2023 Hemoglobin (Bld) [Mass/Vol] 11.4 g/dL 11.8-15.4 [facility] Ketones Auto test strip (U) [Mass/Vol]Ordered By: Nuvia Sanchez on 09-19-2023 Ketones (U) [Mass/Vol] Negative Negative [facility] Laboratory - UrinalysisOrder ed By: Nuvia Sanchez on 09-19-2023 Hyaline casts LM Ql (Urine sed) 0-8 [LPF] 0-8 [facility] Leukocytes [#/volume] correc pepito for nucleated erythrocytes in Blood by Automated counOrdered By: Nuvia Sanchez on 09-19-2023 WBC corrected for nucl RBC Auto (Bld) [#/Vol] 8.9 10*3/uL 3.8-11.6 [facility] Lymphocytes Auto (Bld) [#/Vo l]Ordered By: Nuvia Sanchez on 09-19-2023 Lymphocytes (Bld) [#/Vol] 1.6 10*3/uL 1.00-4.8 [facility] Lymphocytes/100 WBC Auto (Bl d)Ordered By: Nuvia Sanchez on 09-19-2023 Lymphocytes/100 WBC (Bld) 18.2 % . [facility] MCH Auto (RBC) [Entitic mass ]Ordered By: Nuvia Sanchez on 09-19-2023 MCH (RBC) [Entitic mass] 30.4 pg 24.7-34.3 [facility] MCHC Auto (RBC) [Mass/Vol]Or dered By: Nuvia Sanchez on 09-19-2023 MCHC (RBC) [Mass/Vol] 33.2 g/dL 32.0-35.0 [facility] MCV Auto (RBC) [Entitic vol] Ordered By: Nuvia Sanchez on 09-19-2023 MCV (RBC) [Entitic vol] 91.6 fL 80-100 [facility] Monocytes Auto (Bld) [#/Vol] Ordered By: Nuvia Sanchez on 09-19-2023 Monocytes (Bld) [#/Vol] 0.6 10*3/uL 0.0-0.8 [facility] Monocytes/100 WBC Auto (Bld) Ordered By: Nuvia Sanchez on 09-19-2023 Monocytes/100 WBC (Bld) 6.5 % . [facility] Neutrophils Auto (Bld) [#/Vo l]Ordered By: Nuvia Sanchez on 09-19-2023 Neutrophils (Bld) [#/Vol] 6.6 10*3/uL 1.8-7.7 [facility] Neutrophils/100 WBC Auto (Bl d)Ordered By: Nuvia Sanchez on 09-19-2023 Neutrophils/100 WBC (Bld) 74.2 % . [facility] Nitrite Test strip Ql (U)Ord ered By: Nuvia Sanchez on 09-19-2023 Nitrite Ql (U) Negative Negative [facility] No Panel InformationOrdered By: Nuvia Sanchez on 09-19-2023 Estimated GFR (CKD-EPI) 40.226 mL/Min [facility] Creatinine Clearance (Chem N/A [facility] Nucleated erythrocytes [Pres ence] in Blood by Automated countOrdered By: Nuvia Sanchez on 09-19-2023 Nucleated RBC Auto Ql (Bld) 0.1 /100{WBC} 0-0.5 [facility] Platelet mean volume Auto (B ld) [Entitic vol]Ordered By: Nuvia Sanchez on 09-19-2023 Platelet mean volume (Bld) [Entitic vol] 8.6 fL 6.3-10.7 [facility] Platelets Auto (Bld) [#/Vol] Ordered By: Nuvia Sanchez on 09-19-2023 Platelets (Bld) [#/Vol] 214 10*3/uL 150-450 [facility] Potassium [Moles/volume] in Serum or PlasmaOrdered By: Nuvia Sanchez on 09-19-2023 Potassium [Moles/Vol] 4.2 mmol/L 3.5-5.1 [facility] Protein Auto test strip (U) [Mass/Vol]Ordered By: Nuvia Sanchez on 09-19-2023 Protein (U) [Mass/Vol] Negative Negative [facility] Protein [Mass/volume] in Ser um or PlasmaOrdered By: Nuvia Sanchez on 09-19-2023 Protein [Mass/Vol] 6.1 g/dL 6.4-8.9 [facility] RBC Auto (Bld) [#/Vol]Ordere d By: Nuvia Sanchez on 09-19-2023 RBC (Bld) [#/Vol] 3.76 10*6/uL 3.60-5.00 [facility] Serum or plasma albumin/glob ulin mass ratioOrdered By: Nuvia Sanchez on 09-19-2023 Albumin/Globulin [Mass ratio] 1.8 {ratio} [facility] Serum or plasma anion gap de terminationOrdered By: Nuvia Sanchez on 09-19-2023 Anion gap [Moles/Vol] 9.9 mmol/L 6.0-15.0 [facility] [place] Sodium [Moles/volume] in Ser um or PlasmaOrdered By: Nuvia Sanchez on 09-19-2023 Sodium [Moles/Vol] 137 mmol/L 136-145 [facility] Specific gravity Auto test s trip (U) [Rel density]Ordered By: Nuvia Sanchez on 09-19-2023 Specific gravity (U) [Rel density] 1.011 1.001-1.03 0 [facility] Squamous epithelial cells de tection in urine sediment by light microscopyOrdered By: Nuvia Sanchez on 09-19-2023 Epithelial cells.squamous LM Ql (Urine sed) None seen [HPF] 0-2 [facility] Urea nitrogen [Mass/volume] in Serum or PlasmaOrdered By: Nuvia Sanchez on 09-19-2023 Urea nitrogen [Mass/Vol] 32 mg/dL 7-25 [facility] Urine bacteria detection by automated methodOrdered By: Nuvia Sanchez on 09-19-2023 Bacteria Auto Ql (U) None seen None Seen [facility] Urine clarity by refractomet ry automatedOrdered By: Nuvia Sanchez on 09-19-2023 Clarity Refractometry automated (U) Clear Clear [facility] Urine glucose measurement by automated test strip (mass/volume)Ordered By: Nuvia Sanchez on 09-19-2023 Glucose Auto test strip (U) [Mass/Vol] Normal mg/dL Normal [facility] Urine hemoglobin detection b y automated test stripOrdered By: Nuvia Sanchez on 09-19-2023 Hemoglobin Auto test strip Ql (U) Negative Negative [facility] Urine leukocyte esterase det ection by automated test stripOrdered By: Nuvia Sanchez on 09-19-2023 Leukocyte esterase Auto test strip Ql (U) Negative Negative [facility] Urobilinogen Auto test strip (U) [Mass/Vol]Ordered By: Nuvia Sanchez on 09-19-2023 Urobilinogen (U) [Mass/Vol] Normal mg/dL Normal [facility] WBC Auto (Bld) [#/Vol]Ordere d By: Nuvia Sanchez on 09-19-2023 WBC (Bld) [#/Vol] 8.9 10*3/uL 3.8-11.6 [facility] pH Auto test strip (U)Ordere d By: Nuvia Sanchez on 09-19-2023 pH (U) 6.0 [pH] 5.0-9.0 [facility] Consenton 09-17-2023 Consent [id number] Normal [facility] Discharge Instructionson Discharge Instructions [id number] [facility] Main OR Intraoperative Recor don 09-17-2023 Main OR Intraoperative Record IntraOp Document Type FT Summary Primary Physician: Davion Olivares MD Finalized Date/Time: 09/17/23 08:19:33 Pt. Name: MARY JANE RIOS /Sex: 1945 Female Med Rec #: [id number] Physician: Davion Olivares MD Financial #: [id number] Pt. Type: O Room/Bed: / Admit/Disch: 09/16/23 [...] Beaver RN, Yong Fang Role Performed Anesthesiologist Personnel Administrator - Primary Scrub - Primary Sales Demonstrator Time In 09/16/23 14:15:00 09/16/23 14:15:00 09/16/23 [...] and tissue Entry 1 Skin Integrity Intact, [place], Warm, and Skin Abnormality No Dry Outcomes Met? Yes Last Modified By: Janell Beaver RN 09/16/23 14:23:55 Post-Care Text: The patient is free from signs and symptoms of injury caused by extraneous objects Patient Positioning FT Pre-Care Text: Identifies physical alterations that require additional precautions for procedure-specific positioning, verifies presence of prosthe (more content not included)... [facility] Postoperative Documentson Postoperative Documents [id number] [facility] Consent for Treatmenton 08-29 Consent for Treatment [id number]#[id number] [facility] Discharge Instructionson Discharge Instructions MARY JANE RIOS [...] tablet) fluticasone nasal (fluticasone 0.05 mg/inh Nasal Marcus) levothyroxine (levothyroxine 50 mcg (0.05 mg) Tab) [...] office will call for follow up Where: [address] [place], [place] [address], [address] [phone] Business (1) Medications What How Much When Instructions Next Dose Changed famotidine 20 Milligram By Mouth Once a day (at bedtime) Changed famotidine (famotidine 40 mg Tab) 1 Tablets By Mouth Once a day (at bedtime) Pickup at [facility] #[id number] Unchanged alprazolam 0.5 Milligram By Mouth At [...] fluticasone nasal (fluticasone 0.05 mg/ inh Nasal Marcus) 50 Microgram Nasal Inhalation Every day Unchanged [...] Pharmacy Information (more content not included)... Normal [facility] Comment on above: Result Comment: [...] hours. Education and Follow-up: Counseled: Patient, Family. [facility] Comment on above: Result Comment: Elec tronically Signed By: Marshall STEINER, Davion Zarate\.br\Date and Time Signed: 09/16/23 14:42 EDT Other Comment: Rachel ng Attachment - attachment storage system not supported [id number] Can be viewed in source system Missing Attachment - attachment storage system not supported [id number] Can be viewed in source system Missing Attachment - attachment storage system not supported [id number] Can be viewed in source system Missing Attachment - attachment storage system not supported [id number] Can be viewed in source system Missing Attachment - attachment storage system not supported [id number] Can be viewed in source system Missing Attachment - attachment storage system not supported [id number] Can be viewed in source system Missing Attachment - attachment storage system not supported [id number] Can be viewed in source system Missing Attachment - attachment storage system not supported [id number] Can be viewed in source system Missing Attachment - attachment storage system not supported [id number] Can be viewed in source system Missing Attachment - attachment storage system not supported [id number] Can be viewed in source system Missing Attachment - attachment storage system not supported [id number] Can be viewed in source system Missing Attachment - attachment storage system not supported [id number] Can be viewed in source system Gastroenterology [...] Historical Co (more content not included)... Normal [facility] Comment on above: Result Comment: Elec tronically Signed By: Davion Olivares MD\.br\Date and Time Signed: 09/16/23 14:16 EDT Inpatient Patient Summaryon 09-16-2023 Inpatient Patient Summary [address] [address] [facility] Clinical Discharge Instructions PERSON INFORMATION Name: MARY JANE RIOS PHYSICIANS Admitting Physician: Davion Olivares MD Attending Physician: Davion Olivares MD PCP: RONI DAHL MD Discharge Diagnosis: Colon polyps Comment: PATIENT EDUCATION INFORMATION Instructions: Medication Leaflets: Follow up: MEDICATION LIST Medications to Continue Taking That Have Changed [id number], [address], [place] [id number], [phone] START: famotidine (famotidine 40 mg Tab) 1 [...] day. fluticasone nasal (fluticasone 0.05 mg/inh Nasal Marcus) 50 Microgram Nasal Inhalation every day. levothyroxine [...] Milligram By Mouth every day. Comment: Normal [facility] Main OR PACU I Recordon 08-29 Main OR PACU I Record PACU Phase I Docum ent Type FT Summary Primary Physician: Davion Olivares MD Finalized Date/Time: 09/16/23 16:43:13 Pt. Name: MARY JANE RIOS/Sex: 1945 Female Med Rec #: [id number] Physician: Davion Olivares MD Financial #: [id number] Pt. Type: O Room/Bed: / Admit/Disch: 09/16/23 [...] By: Miley Zhou RN 09/16/23 16:43 Normal [facility] Main OR Preoperative Recordo n 09-16-2023 Main OR Preoperative Record Holding Area Document Type FT Summary Primary Physician: Davion Olivares MD Finalized Date/Time: 09/16/23 13:10:36 Pt. Name: MARY JANE RIOS /Sex: 1945 Female Med Rec #: [id number] Physician: Davion Olivares MD Financial #: [id number] Pt. Type: O Room/Bed: / Admit/Disch: 09/16/23 [...] By: Eliza Lyn RN 09/16/23 13:10 Normal [facility] Monitor Recordon 09-16-2023 Monitor Record [id number] Normal [facility] Monitor Record [id number] Normal [facility] Outpatient Surgery Discharge Instructionon 09-16-2023 Outpatient Surgery Discharge Instruction [address] [address] Patient Discharge Instructions PERSON INFORMATION Name: MARY [...] Monsivais You may receive a survey from [employer] asking you to rate your care experience. Your feedback is important and will help us understand what we do well and how we can improve the quality of care we provide to you, your loved ones and our community. It?s an honor to serve you. Thank you for choosing [facility] HERE ARE THE MEDICATION CHANGES THAT OCCURRED DURING YOUR HOSPITAL STAY Medications to Continue Taking That Have Changed [id number], [address], [place] [id number], [phone] START: famotidine (famotidine 40 mg Tab) 1 [...] day. fluticasone nasal (fluticasone 0.05 mg/inh Nasal Marcus) 50 Microgram Nasal Inhalation every day. levothyroxine [...] PATIENT EDUCATION INFORMATION Instructions: Medication Leaflets: Normal [facility] Patient Education - Texton 0 09-16-2023 Patient Education - Text [facility] Progress Note-Physicianon Progress Note-Physician Patient: MARY JANE [...] bedtime), # 90 tab(s), Refills(s) 6, Pharmacy: [facility] #[id number], 162, cm, 09/16/23 10:47:00 EDT, Height/Length Dosing, [...] of stomach acid fluticasone 0.05 mg/inh Nasal Marcus: 50 mcg, Nasal, Daily, Refill(s) 0, Allergy [...] day (at bedtime) fluticasone 0.05 mg/inh Nasal Marcus 50 mcg, Nasal, Daily levothyroxine 50 mcg [...] All Problems Acid reflux / SNOMED CT 590841400 / Confirmed Anticoagulated / SNOMED CT 640158767 / Confirmed Asymptomatic microscopic hematuria / SNOMED CT 1857494059 / Confirmed Chronic back pain / SNOMED CT 480605426 / Confirmed Epigastric pain / SNOMED CT 704711186 / Confirmed H/O: arthritis / SNOMED CT 482423639 / Confirmed History of colon polyps / SNOMED CT 4761798051 / Confirmed Hypercholesterolemia / SNOMED CT 52724642 / Confirmed Hypothyroidism / SNOMED CT 81357249 / Confirmed Internal hemorrhoids / SNOMED CT 975289178 / Confirmed Intestinal metaplasia of stomach / SNOMED CT 870891605 / Confirmed Low vitamin B12 level / SNOMED CT 6651030544 / Confirmed Mixed incontinence / SNOMED CT 51310336 / Confirmed Mixed stress and urge urinary incontinence / SNOMED CT 4115987433 / Confirmed Nocturia / SNOMED CT 077103098 / Confirmed Obesity / ICD-9-CM 278.00 / Possible Shoulder strain / SNOMED CT 797023044 / Confirmed Sleep apnea / SNOMED CT 563993802 / Confirmed USES CPAP Stress incontinence / SNOMED CT 427022173 / Confirmed TMJ (temporomandibular joint disorder) / SNOMED CT 87423468 / Confirmed Urge incontinence / SNOMED CT 236930661 / Confirmed Weak urinary stream / SNOMED CT 632857803 / Confirmed Resolved: Constipation / SNOMED CT 89547983 Resolved: Diverticulosis / SNOMED CT 3214080031 Resolved: Frequency of urination / SNOMED CT 702924790 Resolved: Gastritis / SNOMED CT 5535988 Resolved: Hx of post-iza (more content not [...] of stomach acid fluticasone 0.05 mg/inh Nasal Marcus: 50 mcg, Nasal, Daily, Refill(s) 0, Allergy [...] day (at bedtime) fluticasone 0.05 mg/inh Nasal Marcus 50 mcg, Nasal, Daily levothyroxine 50 mcg [...] All Problems Acid reflux / SNOMED CT 257742822 / Confirmed Anticoagulated / SNOMED CT 980194123 / Confirmed Asymptomatic microscopic hematuria / SNOMED CT 7460247970 / Confirmed Chronic back pain / SNOMED CT 025580135 / Confirmed Epigastric pain / SNOMED CT 228573980 / Confirmed H/O: arthritis / SNOMED CT 631544827 / Confirmed History of colon polyps / SNOMED CT 8143061791 / Confirmed Hypercholesterolemia / SNOMED CT 28770054 / Confirmed Hypothyroidism / SNOMED CT 09856191 / Confirmed Internal hemorrhoids / SNOMED CT 637430269 / Confirmed Intestinal metaplasia of stomach / SNOMED CT 231302165 / Confirmed Low vitamin B12 level / SNOMED CT 1080330165 / Confirmed Mixed incontinence / SNOMED CT 77859181 / Confirmed Mixed stress and urge urinary incontinence / SNOMED CT 9754081846 / Confirmed Nocturia / SNOMED CT 686051721 / Confirmed Obesity / ICD-9-CM 278.00 / Possible Shoulder strain / SNOMED CT 288217312 / Confirmed Sleep apnea / SNOMED CT 365272309 / Confirmed USES CPAP Stress incontinence / SNOMED CT 310092754 / Confirmed TMJ (temporomandibular joint disorder) / SNOMED CT 58386238 / Confirmed Urge incontinence / SNOMED CT 122049466 / Confirmed (more content not included)... Normal [facility] Comment on above: Result Comment: Elec tronically Signed By: Danny Anesthesiology (), Obie Anne.br\Date and Time Signed: 09/16/23 13:35 EDT COVID-19, Rapidon 07-01-2023 Interpretation and review of laboratory results Abnormal [facility] SARS-CoV-2 (COVID-19) RdRp gene JUAQUIN+probe Ql (Resp) Detected Abnormal Not Detected [facility] Comment on above: Rapid NAAT: [...] this assay. Fact sheet for Healthcare Providers: https://www.fda.gov/media/400062/download Fact sheet for Patients: https://www.fda.gov/media/090496/download Methodology: Isothermal Nucleic Acid Amplification Results reported to the appropriate Health Department Specimen Description .NASOPHARYNGEAL SWAB [facility] Rapid influenza A/B antigens on 07-01-2023 FLUAV Ag Ql (Unsp spec) Negative NEGATIVE [facility] Comment on above: for Influenza A Anti gen FLUBV Ag Ql (Unsp spec) Negative NEGATIVE [facility] Comment on above: for Influenza B Anti gen. [facility] Alanine aminotransferase [En zymatic activity/volume] in Serum or PlasmaOrdered By: Obie Hylton on 05-27-2023 ALT [Catalytic activity/Vol] 9 U/L 7-52 [facility] Albumin [Mass/volume] in Ser um or Plasma by Bromocresol green (BCG) dye binding methoOrdered By: Obie Hylton on 05-27-2023 Albumin BCG dye [Mass/Vol] 3.9 g/dL 3.5-5.7 [facility] Alkaline phosphatase [Enzyma tic activity/volume] in Serum or PlasmaOrdered By: Obie Hylton on 05-27-2023 ALP [Catalytic activity/Vol] 51 U/L 34-104 [facility] Aspartate aminotransferase [ Enzymatic activity/volume] in Serum or PlasmaOrdered By: Obie Hylton on 05-27-2023 AST [Catalytic activity/Vol] 14 U/L 13-39 [facility] Automated erythrocytes count in urine sediment (number/area)Ordered By: Obie Hylton on 05-27-2023 RBC Auto (Urine sed) [#/Area] 0-1 [HPF] 0-4 [facility] Automated leukocytes count i n urine sediment (number/area)Ordered By: Obie Hylton on 05-27-2023 WBC Auto (Urine sed) [#/Area] 0-1 [HPF] 0-4 [facility] Basophils Auto (Bld) [#/Vol] Ordered By: Obie Hylton on 05-27-2023 Basophils (Bld) [#/Vol] 0.0 10*3/uL 0.0-0.2 [facility] Basophils/100 WBC Auto (Bld) Ordered By: Obie Hylton on 05-27-2023 Basophils/100 WBC (Bld) 0.4 % . [facility] Bilirubin Test strip Ql (U)O rdered By: Obie Hylton on 05-27-2023 Bilirubin Ql (U) Negative Negative [facility] Bilirubin.total [Mass/volume ] in Serum or PlasmaOrdered By: Obie Hylton on 05-27-2023 Bilirubin [Mass/Vol] 0.5 mg/dL 0.3-1.0 [facility] Calcium [Mass/volume] in Ser um or PlasmaOrdered By: Obie Hylton on 05-27-2023 Calcium [Mass/Vol] 8.9 mg/dL 8.6-10.3 [facility] Carbon dioxide, total [Moles /volume] in Serum or PlasmaOrdered By: Obie Hylton on 05-27-2023 CO2 [Moles/Vol] 27.0 mmol/L 21.0-31.0 [facility] Chloride [Moles/volume] in S liat or PlasmaOrdered By: Obie Hylton on 05-27-2023 Chloride [Moles/Vol] 112 mmol/L 98-107 [facility] Color Auto (U)Ordered By: Cindy Hylton on 05-27-2023 Color (U) Yellow Yellow [facility] Creatinine [Mass/volume] in Serum or PlasmaOrdered By: Obie Hylton on 05-27-2023 Creatinine [Mass/Vol] 1.20 mg/dL 0.60-1.20 [facility] Eosinophils Auto (Bld) [#/Vo l]Ordered By: Obie Hylton on 05-27-2023 Eosinophils (Bld) [#/Vol] 0.1 10*3/uL 0.0-0.45 [facility] Eosinophils/100 WBC Auto (Bl d)Ordered By: Obie Hylton on 05-27-2023 Eosinophils/100 WBC (Bld) 2.0 % . [facility] Erythrocyte distribution wid th Auto (RBC) [Ratio]Ordered By: Obie Hylton on 05-27-2023 Erythrocyte distribution width (RBC) [Ratio] 14.9 % 11.9-15.3 [facility] Erythrocyte sedimentation ra te by Photometric methodOrdered By: Obie Hylton on 05-27-2023 ESR Photometric method (d) [Velocity] 17 mm/hr 0-29 [facility] Globulin Calc (S) [Mass/Vol] Ordered By: Obie Hylton on 05-27-2023 Globulin (S) [Mass/Vol] 2.1 g/dL [facility] Glucose [Mass/volume] in Ser um or PlasmaOrdered By: Obie Hylton on 05-27-2023 Glucose [Mass/Vol] 91 mg/dL 70-100 [facility] Comment on above: ADA recommended refe rence rangeRandom Glucose Reference Range is dependent on time and content of last meal. Glucose of more than 200 mg/dL in a nonstressed, ambulatory subject supports the diagnosis of Diabetes Mellitus. Hematocrit Auto (Bld) [Volum e fraction]Ordered By: Obie Hylton on 05-27-2023 Hematocrit (Bld) [Volume fraction] 34.4 % 34.0-46.4 [facility] Hemoglobin [Mass/volume] in BloodOrdered By: Obie Hylton on 05-27-2023 Hemoglobin (Bld) [Mass/Vol] 11.7 g/dL 11.8-15.4 [facility] Ketones Auto test strip (U) [Mass/Vol]Ordered By: Obie Hylton on 05-27-2023 Ketones (U) [Mass/Vol] Negative Negative [facility] Laboratory - UrinalysisOrder ed By: Obie Hylton on 05-27-2023 Hyaline casts LM Ql (Urine sed) 0-8 [LPF] 0-8 [facility] Leukocytes [#/volume] correc pepito for nucleated erythrocytes in Blood by Automated counOrdered By: Obie Hylton on 05-27-2023 WBC corrected for nucl RBC Auto (Bld) [#/Vol] 3.9 10*3/uL 3.8-11.6 [facility] Lymphocytes Auto (Bld) [#/Vo l]Ordered By: Obie Hylton on 05-27-2023 Lymphocytes (Bld) [#/Vol] 1.1 10*3/uL 1.00-4.8 [facility] Lymphocytes/100 WBC Auto (Bl d)Ordered By: Obie Hylton on 05-27-2023 Lymphocytes/100 WBC (Bld) 27.3 % . [facility] MCH Auto (RBC) [Entitic mass ]Ordered By: Obie Hylton on 05-27-2023 MCH (RBC) [Entitic mass] 31.7 pg 24.7-34.3 [facility] MCHC Auto (RBC) [Mass/Vol]Or dered By: Obie Hylton on 05-27-2023 MCHC (RBC) [Mass/Vol] 33.9 g/dL 32.0-35.0 [facility] MCV Auto (RBC) [Entitic vol] Ordered By: Obie Hylton on 05-27-2023 MCV (RBC) [Entitic vol] 93.4 fL 80-100 [facility] Monocytes Auto (Bld) [#/Vol] Ordered By: Obie Hylton on 05-27-2023 Monocytes (Bld) [#/Vol] 0.3 10*3/uL 0.0-0.8 [facility] Monocytes/100 WBC Auto (Bld) Ordered By: Obie Hylton on 05-27-2023 Monocytes/100 WBC (Bld) 8.4 % . [facility] Neutrophils Auto (Bld) [#/Vo l]Ordered By: Obie Hylton on 05-27-2023 Neutrophils (Bld) [#/Vol] 2.4 10*3/uL 1.8-7.7 [facility] Neutrophils/100 WBC Auto (Bl d)Ordered By: Obie Hylton on 05-27-2023 Neutrophils/100 WBC (Bld) 61.9 % . [facility] Nitrite Test strip Ql (U)Ord ered By: Obie Hylton on 05-27-2023 Nitrite Ql (U) Negative Negative [facility] No Panel InformationOrdered By: Obie Hylton on 05-27-2023 Estimated GFR (CKD-EPI) 46.333 mL/Min [facility] Creatinine Clearance (Chem N/A [facility] Nucleated erythrocytes [Pres ence] in Blood by Automated countOrdered By: Obie Hylton on 05-27-2023 Nucleated RBC Auto Ql (Bld) 0.2 /100{WBC} 0-0.5 [facility] Platelet mean volume Auto (B ld) [Entitic vol]Ordered By: Obie Hylton on 05-27-2023 Platelet mean volume (Bld) [Entitic vol] 8.8 fL 6.3-10.7 [facility] Platelets Auto (Bld) [#/Vol] Ordered By: Obie Hylton on 05-27-2023 Platelets (Bld) [#/Vol] 193 10*3/uL 150-450 [facility] Potassium [Moles/volume] in Serum or PlasmaOrdered By: Obie Hylton on 05-27-2023 Potassium [Moles/Vol] 4.4 mmol/L 3.5-5.1 [facility] Protein Auto test strip (U) [Mass/Vol]Ordered By: Obie Hylton on 05-27-2023 Protein (U) [Mass/Vol] Negative Negative [facility] Protein [Mass/volume] in Ser um or PlasmaOrdered By: Obie Hylton on 05-27-2023 Protein [Mass/Vol] 6.0 g/dL 6.4-8.9 [facility] RBC Auto (Bld) [#/Vol]Ordere d By: Obie Hylton on 05-27-2023 RBC (Bld) [#/Vol] 3.68 10*6/uL 3.60-5.00 [facility] Serum or plasma albumin/glob ulin mass ratioOrdered By: Obie Hylton on 05-27-2023 Albumin/Globulin [Mass ratio] 1.9 {ratio} [facility] Serum or plasma anion gap de terminationOrdered By: Obie Hylton on 05-27-2023 Anion gap [Moles/Vol] 8.4 mmol/L 6.0-15.0 [facility] Sodium [Moles/volume] in Ser um or PlasmaOrdered By: Obie Hylton on 05-27-2023 Sodium [Moles/Vol] 143 mmol/L 136-145 [facility] Specific gravity Auto test s trip (U) [Rel density]Ordered By: Obie yHlton on 05-27-2023 Specific gravity (U) [Rel density] 1.017 1.001-1.03 0 [facility] Squamous epithelial cells de tection in urine sediment by light microscopyOrdered By: Obie Hylton on 05-27-2023 Epithelial cells.squamous LM Ql (Urine sed) 1-2 [HPF] 0-2 [facility] Urea nitrogen [Mass/volume] in Serum or PlasmaOrdered By: Obie Hylton on 05-27-2023 Urea nitrogen [Mass/Vol] 25 mg/dL 7-25 [facility] Urine bacteria detection by automated methodOrdered By: Obie Hylton on 05-27-2023 Bacteria Auto Ql (U) None seen None Seen [facility] Urine clarity by refractomet ry automatedOrdered By: Obie Hylton on 05-27-2023 Clarity Refractometry automated (U) Cloudy Clear [facility] Urine glucose measurement by automated test strip (mass/volume)Ordered By: Obie Hylton on 05-27-2023 Glucose Auto test strip (U) [Mass/Vol] Normal mg/dL Normal [facility] Urine hemoglobin detection b y automated test stripOrdered By: Obie Hylton on 05-27-2023 Hemoglobin Auto test strip Ql (U) Trace Negative [facility] Urine leukocyte esterase det ection by automated test stripOrdered By: Obie Hylton on 05-27-2023 Leukocyte esterase Auto test strip Ql (U) Negative Negative [facility] Urobilinogen Auto test strip (U) [Mass/Vol]Ordered By: Obie Hylton on 05-27-2023 Urobilinogen (U) [Mass/Vol] Normal mg/dL Normal [facility] WBC Auto (Bld) [#/Vol]Ordere d By: Obie Hylton on 05-27-2023 WBC (Bld) [#/Vol] 3.9 10*3/uL 3.8-11.6 [facility] pH Auto test strip (U)Ordere d By: Obie Hylton on 05-27-2023 pH (U) 5.5 [pH] 5.0-9.0 [facility] Follow-Upon 04-11-2023 Follow-Up [id number] Genny Rios 1945 F Date Provider Department Center 04/11[facility]20[id number] No family history on file Level of Service:38721 MS OFFICE/OUTPATIENT ESTABLISHED LOW MDM 20-29 MIN Normal [facility] Office Visiton 03-28-2023 Follow-up visit [id number] Genny Rios 1945 F Date Provider Department Center 03/28/2023 [id number], XU [facility] No family history on file Level of Service:91579 MS OFFICE/OUTPATIENT NEW MODERATE MDM 45-59 MINUTES Normal [facility] US RENAL LIMITEDon 3 Simple bilateral agus al cysts with otherwise unremarkable exam [facility] EXAMINATION: ULTRASOUND OF THE KIDNEYS 03/13/2023 10:12 am COMPARISON: None. HISTORY: ORDERING SYSTEM PROVIDED HISTORY: Renal cyst TECHNOLOGIST PROVIDED HISTORY: This procedure can be scheduled via [employer]. Access your [employer] account by visiting [employer]. FINDINGS: The right kidney measures 11.7 cm in length and the left kidney measures 11.3 cm in length. Normal renal cortical echogenicity. No hydronephrosis or nephrolithiasis. Simple right renal cyst 5 cm. Simple left renal cyst 5.2 cm. [facility] Jonny Lopez DO - 03/13/2023 EXAMINATION: ULTRASOUND OF THE KIDNEYS 03/13/2023 10:12 am COMPARISON: None. HISTORY: ORDERING SYSTEM PROVIDED HISTORY: Renal cyst TECHNOLOGIST PROVIDED HISTORY: This procedure can be scheduled via [employer]. Access your [employer] account by visiting [employer]. FINDINGS: The right kidney measures 11.7 cm in length and the left kidney measures 11.3 cm in length. Normal renal cortical echogenicity. No hydronephrosis or nephrolithiasis. Simple right renal cyst 5 cm. Simple left renal cyst 5.2 cm. IMPRESSION: Simple bilateral renal cysts with otherwise unremarkable exam [employer] Radiology Study observation (narrative) [employer] US RENAL LIMITEDOrdered By: Jonny Lopez on 03-13-2023 [employer] Work Phone: Consent for Procedure/Surger yon 03-01-2023 Consent for Procedure/Surgery [id number]:[id number] Normal [facility] Ambulatory Visit Summaryon 0 02-28-2023 [...] tablet) fluticasone nasal (fluticasone 0.05 mg/inh Nasal Marcus) levothyroxine (levothyroxine 50 mcg (0.05 mg) Tab) [...] fluticasone nasal (fluticasone 0.05 mg/ inh Nasal Marcus) 50 Microgram Nasal Inhalation Every day Unchanged [...] Nocturia Sl (more content not included)... Normal [facility] CBC with Auto Differentialon 11-25-2022 Basophils (Bld) [#/Vol] 0.00 10*3/uL [employer] Basophils/100 WBC (Bld) 0 % 0 - 2 % [employer] Differential Type YES [employer] Eosinophils (Bld) [#/Vol] 0.10 10*3/uL [facility] Eosinophils/100 WBC (Bld) 2 % 0 - 5 % [facility] Erythrocyte distribution width (RBC) [Ratio] 14.0 % 12.1 - 15.2 % [facility] Hematocrit (Bld) [Volume fraction] 35.6 % Low 36 - 46 % [facility] Hemoglobin (Bld) [Mass/Vol] 12.0 g/dL 12.0 - 16.0 g/dL [facility] Interpretation and review of laboratory results Abnormal [facility] Lymphocytes/100 WBC (Bld) 27 % 15 - 40 % [facility] Lymphocytes/100 WBC (Bld) 1.30 % [facility] MCH (RBC) [Entitic mass] 31.0 pg 26 - 34 pg [facility] MCHC (RBC) [Mass/Vol] 33.8 g/dL 31 - 3 7 g/dL [facility] MCV (RBC) [Entitic vol] 91.6 fL 80 - 100 fL [facility] Monocytes/100 WBC (Bld) 9 % High 4 - 8 % [facility] Monocytes/100 WBC (Bld) 0.50 % [facility] Neutrophils/100 WBC (Bld) 62 % 47 - 75 % [facility] Platelets (Bld) [#/Vol] 240 10*3/uL [facility] RBC (Bld) [#/Vol] 3.89 10*6/uL Low 4.0 - 5.2 m/uL [facility] Segmented neutrophils/100 WBC (Bld) 3.10 % [facility] WBC other (Bld) [#/Vol] 5.0 [facility] Comprehensive Metabolic Pane trevor 11-25-2022 Albumin [Mass/Vol] 3.7 g/dL 3.5 - 5.2 g/dL [facility] ALP [Catalytic activity/Vol] 70 U/L 35 - 104 U/L [facility] ALT [Catalytic activity/Vol] 6 U/L 5 - 33 U/L [facility] Anion gap [Moles/Vol] 10 mmol/L 9 - 17 mmol/L [facility] AST [Catalytic activity/Vol] 15 U/L NINF - 32 U/L [facility] Bilirubin [Mass/Vol] 0.3 mg/dL 0.3 - 1 .2 mg/dL [facility] Calcium [Mass/Vol] 9.4 mg/dL 8.6 - 10. 4 mg/dL [facility] Chloride [Moles/Vol] 105 mmol/L 98 - 10 7 mmol/L [facility] CO2 [Moles/Vol] 24 mmol/L 20 - 31 mmol/L [facility] Creatinine [Mass/Vol] 1.12 mg/dL High 0.50 - 0.90 mg/dL [facility] GFR/1.73 sq M.predicted MDRD (S/P/Bld) [Vol rate/Area] 51 mL/min/{1.73_m2} Low - PINF [facility] Comment on above: These results [...] [Mass/Vol] 97 mg/dL 70 - 99 mg/dL [facility] Interpretation and review of laboratory results Abnormal [facility] Potassium [Moles/Vol] 4.1 mmol/L 3.7 - 5.3 mmol/L [facility] Protein [Mass/Vol] 6.7 g/dL 6.4 - 8.3 g/dL [facility] Sodium [Moles/Vol] 139 mmol/L 135 - 144 mmol/L [facility] Urea nitrogen [Mass/Vol] 32 mg/dL High 8 - 23 mg/dL [facility] Urea nitrogen/Creatinine [Mass ratio] 29 mg/mg High 9 - 20 [facility] Microscopic Urinalysison - [facility] Epithelial cells LM.HPF (Urine sed) [#/Area] 0 TO 2 /HPF [facility] RBC LM.HPF (Urine sed) [#/Area] 0 TO [address] [facility] WBC LM.HPF (Urine sed) [#/Area] NONE SEEN 0 /HPF [facility] Urinalysison 11-25-2022 Bilirubin Ql (U) Negative NEGATIVE [facility] Clarity (U) Clear Clear [facility] Color (U) Yellow Yellow [facility] Glucose Test strip (U) [Mass/Vol] Negative NEGATIVE [facility] Hemoglobin Auto test strip Ql (U) TRACE Abnormal NEGATIVE [facility] Interpretation and review of laboratory results Abnormal [facility] Ketones (U) [Mass/Vol] Negative NEGATIVE [facility] Leukocyte esterase Test strip Ql (U) Negative NEGATIVE [facility] Nitrite Ql (U) Negative NEGATIVE [facility] pH (U) 6.5 [pH] 5.0 - 8.0 [facility] Protein (U) [Mass/Vol] TRACE Abnormal NEGATIVE [facility] Specific gravity (U) [Rel density] 1.015 1.005 - 1.030 [facility] Urinalysis Comments [facility] Urobilinogen Qn (U) Normal Normal [facility] XR CHEST (2 VW)on 11-25-2022 No acute cardiopulmonary findings. PN RIS CONSOLIDATED EXAM: XR CHEST (2 VW ) INDICATION: Reason for exam:->Recently treated for Pneumonia. COMPARISON: 11/17/2022 TECHNIQUE: Chest radiograph(s) as above FINDINGS: Lines/Tubes: None Lungs: No pneumothorax, pleural effusion, or consolidation. Cardiomediastinal silhouette: Normal in size. Bones/Soft Tissues: No acute osseous abnormality. Right upper quadrant surgical clips. PN RIS CONSOLIDATED Bello Zheng MD - 11/25/2022 EXAM: XR CHEST (2 VW) INDICATION: Reason for exam:->Recently treated for Pneumonia. COMPARISON: 11/17/2022 TECHNIQUE: Chest radiograph(s) as above FINDINGS: Lines/Tubes: None Lungs: No pneumothorax, pleural effusion, or consolidation. Cardiomediastinal silhouette: Normal in size. Bones/Soft Tissues: No acute osseous abnormality. Right upper quadrant surgical clips. IMPRESSION: No acute cardiopulmonary findings. Mr Banana Phone: Radiology Study observation (narrative) Mr Banana Phone: XR CHEST (2 VW)Ordered By: Dejan Zheng on 11-25-2022 Mr Banana Phone: XR CHEST (2 VW)on 08-29-2022 FINDINGS/IMPRESSION: 1. Normal sized heart. 2. Clear lungs. MHPN RIS CONSOLIDATED EXAM: XR CHEST (2 VW ) HISTORY: Reason for exam:->HTN. COMPARISON: Portable chest 03/31/2020. PN RIS CONSOLIDATED Ishmael Valentin Jr., MD - 08/29/2022 EXAM: XR CHEST (2 VW) HISTORY: Reason for exam:->HTN. COMPARISON: Portable chest 03/31/2020. IMPRESSION: FINDINGS/IMPRESSION: 1. Normal sized heart. 2. Clear lungs. Mr Banana Phone: Radiology Study observation (narrative) Mr Banana Phone: XR CHEST (2 VW)Ordered By: Jo Valentin on 08-29-2022 Mr Banana Phone: Aspartate aminotransferase [ Enzymatic activity/volume] in Serum or PlasmaOrdered By: Obie Hylton on 08-21-2022 AST [Catalytic activity/Vol] 16 U/L 10-42 [facility] Automated erythrocytes count in urine sediment (number/area)Ordered By: Obie Hylton on 08-21-2022 RBC Auto (Urine sed) [#/Area] 1-2 [HPF] 0-4 [facility] Automated leukocytes count i n urine sediment (number/area)Ordered By: Obie Hylton on 08-21-2022 WBC Auto (Urine sed) [#/Area] 5-9 [HPF] 0-4 [facility] Basophils Auto (Bld) [#/Vol] Ordered By: Obie Hylton on 08-21-2022 Basophils (Bld) [#/Vol] 0.0 10*3/uL 0.0-0.2 [facility] Basophils/100 WBC Auto (Bld) Ordered By: Obie Hylton on 08-21-2022 Basophils/100 WBC (Bld) 0.3 % . [facility] Bilirubin Test strip Ql (U)O rdered By: Obie Hylton on 08-21-2022 Bilirubin Ql (U) Negative Negative [facility] Body fluid albumin measureme nt (mass/volume)Ordered By: Obie Hylton on 08-21-2022 Albumin (Body fld) [Mass/Vol] 3.6 g/dL 3.2-5.5 [facility] Cholesterol [Mass/volume] in Serum or PlasmaOrdered By: Kenneth Pascal on 08-21-2022 Cholesterol [Mass/Vol] 120 mg/dL 140-200 [facility] Comment on above: Chol less than 200 m g/dl low riskChol 201-239 mg/dl borderline riskChol 240 mg/dl and greater high risk Cholesterol in LDL Calc [Mas s/Vol]Ordered By: Kenneth Pascal on 08-21-2022 Cholesterol in LDL [Mass/Vol] 59 mg/dL 0-100 [facility] Comment on above: LDL ATP III CLASSIFI CATIONLDL less than 100 mg/dL OptimalLDL 100-129 mg/dL Near or above optimalLDL 130-159 mg/dL Borderline highLDL 160-189 mg/dL HighLDL greater than 189 mg/dL Very high Cholesterol in VLDL Calc [Ma ss/Vol]Ordered By: Kenneth Pascal on 08-21-2022 Cholesterol in VLDL [Mass/Vol] 15 mg/dL [facility] Color Auto (U)Ordered By: Cindy Hylton on 08-21-2022 Color (U) Yellow Yellow [facility] Creatinine and Glomerular fi ltration rate.predicted panel (S/P/Bld)Ordered By: Obie Hylton on 08-21-2022 Creatinine [Mass/Vol] 1.19 mg/dL 0.44-1.03 [facility] [place] Eosinophils Auto (Bld) [#/Vo l]Ordered By: Obie Hylton on 08-21-2022 Eosinophils (Bld) [#/Vol] 0.1 10*3/uL 0.0-0.45 [facility] Eosinophils/100 WBC Auto (Bl d)Ordered By: Obie Hylton on 08-21-2022 Eosinophils/100 WBC (Bld) 1.2 % . [facility] Erythrocyte distribution wid th Auto (RBC) [Ratio]Ordered By: Obie Hylton on 08-21-2022 Erythrocyte distribution width (RBC) [Ratio] 14.5 % 11.9-15.3 [facility] Erythrocyte sedimentation ra te by Photometric methodOrdered By: Obie Hylton on 08-21-2022 ESR Photometric method (d) [Velocity] 9 mm/hr 0-29 [facility] Estimated glomerular filtrat ion rate (GFR) non- AmericanOrdered By: Obie Hylton on 08-21-2022 GFR/1.73 sq M.predicted among non-blacks MDRD (S/P/Bld) [Vol rate/Area] 44 mL/Min [facility] Globulin Calc (S) [Mass/Vol] Ordered By: Obie Hylton on 08-21-2022 Globulin (S) [Mass/Vol] 2.6 g/dL [facility] Hematocrit Auto (Bld) [Volum e fraction]Ordered By: Obie Hylton on 08-21-2022 Hematocrit (Bld) [Volume fraction] 35.6 % 34.0-46.4 [facility] Hemoglobin [Mass/volume] in BloodOrdered By: Obie Hylton on 08-21-2022 Hemoglobin (Bld) [Mass/Vol] 11.9 g/dL 11.8-15.4 [facility] Ketones Auto test strip (U) [Mass/Vol]Ordered By: Obie Hylton on 08-21-2022 Ketones (U) [Mass/Vol] Negative Negative [facility] Laboratory - Chemistry and C hemistry - challengeOrdered By: Kenneth Pascal on 08-21-2022 Magnesium [Mass/Vol] 2.1 mg/dL 1.6-2.6 [facility] - UrinalysisOrder ed By: Obie Hylton on 08-21-2022 Hyaline casts LM Ql (Urine sed) 0-8 [LPF] 0-8 [facility] Leukocytes [#/volume] correc pepito for nucleated erythrocytes in Blood by Automated counOrdered By: Obie Hylton on 08-21-2022 WBC corrected for nucl RBC Auto (Bld) [#/Vol] 4.7 10*3/uL 3.8-11.6 [facility] Lymphocytes Auto (Bld) [#/Vo l]Ordered By: Obie Hylton on 08-21-2022 Lymphocytes (Bld) [#/Vol] 1.0 10*3/uL 1.00-4.8 [facility] Lymphocytes/100 WBC Auto (Bl d)Ordered By: Obie Hylton on 08-21-2022 Lymphocytes/100 WBC (Bld) 21.8 % . [facility] MCH Auto (RBC) [Entitic mass ]Ordered By: Obie Hylton on 08-21-2022 MCH (RBC) [Entitic mass] 33.9 pg 24.7-34.3 [facility] MCHC Auto (RBC) [Mass/Vol]Or dered By: Obie Hylton on 08-21-2022 MCHC (RBC) [Mass/Vol] 33.5 g/dL 32.0-35.0 [facility] [place] MCV Auto (RBC) [Entitic vol] Ordered By: Obie Hylton on 08-21-2022 MCV (RBC) [Entitic vol] 101.2 fL 80-100 [facility] Monocytes Auto (Bld) [#/Vol] Ordered By: Obie Hylton on 08-21-2022 Monocytes (Bld) [#/Vol] 0.4 10*3/uL 0.0-0.8 [facility] Monocytes/100 WBC Auto (Bld) Ordered By: Obie Hylton on 08-21-2022 Monocytes/100 WBC (Bld) 8.2 % . [facility] Neutrophils Auto (Bld) [#/Vo l]Ordered By: Obie Hylton on 08-21-2022 Neutrophils (Bld) [#/Vol] 3.2 10*3/uL 1.8-7.7 [facility] Neutrophils/100 WBC Auto (Bl d)Ordered By: Obie Hylton on 08-21-2022 Neutrophils/100 WBC (Bld) 68.5 % . [facility] Nitrite Test strip Ql (U)Ord ered By: Obie Hylton on 08-21-2022 Nitrite Ql (U) Negative Negative [facility] No Panel InformationOrdered By: Kenneth Pascal on 08-21-2022 25-Hydroxy Vitamin D Total 43.9 ng/mL 30-100 [facility] Comment on above: VITAMIN D STATUS 25( [place])VITAMIN D RANGE (ng/mL) Deficient <20 Insufficient 20 to <30Sufficient 30 to 100Reference: Jennifer MF,Babs LUCERO, Blank GALLARDO, et al. Evaluation,treatment, and prevention of vitamin D deficiency; an Endocrine Society clinical practice guideline. JCEM. 2010; 96(7):1911-30. No Panel InformationOrdered By: Obie Hylton on 08-21-2022 Estimated GFR () 53 mL/Min [facility] Comment on above: GFR estimated refere nce range: According to KDOQI guidelines, <60 ml/min/1.73m2 is sufficient to diagnose a patient with chronic kidney disease. Pharmacy Creatinine Clearance (Chem N/A [facility] Nucleated erythrocytes [Pres ence] in Blood by Automated countOrdered By: Obie Hylton on 08-21-2022 Nucleated RBC Auto Ql (Bld) 0.2 /100{WBC} 0-0.5 [facility] Platelet mean volume Auto (B ld) [Entitic vol]Ordered By: Obie Hylton on 08-21-2022 Platelet mean volume (Bld) [Entitic vol] 9.0 fL 6.3-10.7 [facility] Platelets Auto (Bld) [#/Vol] Ordered By: Obie Hylton on 08-21-2022 Platelets (Bld) [#/Vol] 188 10*3/uL 150-450 [facility] Protein Auto test strip (U) [Mass/Vol]Ordered By: Obie Hylton on 08-21-2022 Protein (U) [Mass/Vol] Negative Negative [facility] Protein [Mass/volume] in Ser um or PlasmaOrdered By: Obie Hylton on 08-21-2022 Protein [Mass/Vol] 6.2 g/dL 6.1-7.9 [facility] RBC Auto (Bld) [#/Vol]Ordere d By: Obie Hylton on 08-21-2022 RBC (Bld) [#/Vol] 3.52 10*6/uL 3.60-5.00 [facility] Serum or plasma alanine negro otransferase measurement without P-5'-P (enzymatic activiOrdered By: Obie Hylton on 08-21-2022 ALT No additional P-5'-P [Catalytic activity/Vol] 12 U/L 10-60 [facility] Serum or plasma albumin/glob ulin mass ratioOrdered By: Obie Hylton on 08-21-2022 Albumin/Globulin [Mass ratio] 1.4 {ratio} [facility] Serum or plasma alkaline glen sphatase measurement (enzymatic activity/volume)Ordered By: Obie Hylton on 08-21-2022 ALP [Catalytic activity/Vol] 58 U/L 32-92 [facility] Serum or plasma anion gap de terminationOrdered By: Obie Hylton on 08-21-2022 Anion gap [Moles/Vol] 13.5 mmol/L 6.0-15.0 [facility] Serum or plasma calcium olivia urement (mass/volume)Ordered By: Obie Hylton on 08-21-2022 Calcium [Mass/Vol] 9.1 mg/dL 8.2-10.2 [facility] Serum or plasma chloride wilner surement (moles/volume)Ordered By: Obie Hylton on 08-21-2022 Chloride [Moles/Vol] 105 mmol/L 95-114 [facility] Serum or plasma glucose olivia urement (mass/volume)Ordered By: Obie Hylton on 08-21-2022 Glucose [Mass/Vol] 91 mg/dL 70-100 [facility] Comment on above: ADA recommended refe rence rangeRandom Glucose Reference Range is dependent on time and content of last meal. Glucose of more than 200 mg/dL in a nonstressed, ambulatory subject supports the diagnosis of Diabetes Mellitus. Serum or plasma high density lipoprotein (HDL) cholesterol measurementOrdered By: Kenneth Pascal on 08-21-2022 Cholesterol in HDL [Mass/Vol] 45 mg/dL 35-85 [facility] Comment on above: HDL CHOL ATP-III CLA SSIFICATION Cardiovascular RiskHDL > or equal to 60 mg/dL LOWHDL < 40 mg/dL HIGH Serum or plasma potassium me asurement (moles/volume)Ordered By: Obie Hylton on 08-21-2022 Potassium [Moles/Vol] 4.1 mmol/L 3.5-5.1 [facility] [place] Serum or plasma sodium measu rement (moles/volume)Ordered By: Obie Hylton on 08-21-2022 Sodium [Moles/Vol] 138 mmol/L 136-146 [facility] Serum or plasma total biliru bin measurement (mass/volume)Ordered By: Obie Hylton on 08-21-2022 Bilirubin [Mass/Vol] 0.3 mg/dL 0.3-1.2 [facility] Serum or plasma total carbon dioxide measurement (moles/volume)Ordered By: Obie Hylton on 08-21-2022 CO2 [Moles/Vol] 23.6 mmol/L 22.0-30.0 [facility] Serum or plasma total choles terol/high density lipoprotein (HDL) cholesterol mass ratOrdered By: Kenneth Pascal on 08-21-2022 Cholesterol.total/Cho lesterol in HDL [Mass ratio] 2.7 {ratio} <5.0 [facility] Serum or plasma urea nitroge n measurement (mass/volume)Ordered By: Obie Hylton on 08-21-2022 Urea nitrogen [Mass/Vol] 25 mg/dL 9-23 [facility] Specific gravity Auto test s trip (U) [Rel density]Ordered By: Obie Hylton on 08-21-2022 Specific gravity (U) [Rel density] 1.014 1.001-1.03 0 [facility] Squamous epithelial cells de tection in urine sediment by light microscopyOrdered By: Obie Hylton on 08-21-2022 Epithelial cells.squamous LM Ql (Urine sed) 5-9 [HPF] 0-2 [facility] TSH DL <= 0.005 mIU/L QnOrde red By: Kenneth Pascal on 08-21-2022 TSH Qn 1.14 m[IU]/L 0.45-5.33 [facility] Triglyceride [Mass/volume] i n Serum or PlasmaOrdered By: Kenneth Pascal on 08-21-2022 Triglyceride [Mass/Vol] 78 mg/dL 35-149 [facility] Comment on above: TRIG ATP III CLASSIF ICATIONTRIG less than 150 mg/dL NormalTRIG 150-199 mg/dL Borderline highTRIG 200-500 mg/dL High TRIG greater than 500 mg/dL Very highStandard traceable to the Center for Disease Conrtrol and Prevention (CDC) test method. Urine bacteria detection by automated methodOrdered By: Obie Hylton on 08-21-2022 Bacteria Auto Ql (U) None seen None Seen [facility] Urine clarity by refractomet ry automatedOrdered By: Obei Hylton on 08-21-2022 Clarity Refractometry automated (U) Clear Clear [facility] Urine glucose measurement by automated test strip (mass/volume)Ordered By: Obie Hylton on 08-21-2022 Glucose Auto test strip (U) [Mass/Vol] Normal mg/dL Normal [facility] Urine hemoglobin detection b y automated test stripOrdered By: Obie Hylton on 08-21-2022 Hemoglobin Auto test strip Ql (U) Trace Negative [facility] Urine leukocyte esterase det ection by automated test stripOrdered By: Obie Hylton on 08-21-2022 Leukocyte esterase Auto test strip Ql (U) 1+ Negative [facility] Urobilinogen Auto test strip (U) [Mass/Vol]Ordered By: Obie Hylton on 08-21-2022 Urobilinogen (U) [Mass/Vol] Normal mg/dL Normal [facility] WBC Auto (Bld) [#/Vol]Ordere d By: Obie Hylton on 08-21-2022 WBC (Bld) [#/Vol] 4.7 10*3/uL 3.8-11.6 [facility] pH Auto test strip (U)Ordere d By: Obie Hylton on 08-21-2022 pH (U) 7.0 [pH] 5.0-9.0 [facility] CHEMISTRYOrdered By: SYSTEM SYSTEM on 07-10-2022 [...] 48 mL/min/1.73 m2 Low >=59mL/min /1.73 m2 [facility] Chem S GFR/1.73 sq M.predicted among non-blacks MDRD (S/P/Bld) [Vol rate/Area] 40 mL/min/1.73 m2 Low >=59mL/min /1.73 m2 [facility] Chem S Glucose [Mass/Vol] 97 mg/dL Normal [...] on 02-22-2022 Albumin [Mass/Vol] 3.5 g/dL 3.2-5.5 [facility] Automated erythrocytes count in urine sediment (number/area)Ordered By: Obie Hylton on 02-22-2022 RBC Auto (Urine sed) [#/Area] 3-4 [HPF] 0-4 [facility] Automated leukocytes count i n urine sediment (number/area)Ordered By: Obie Hylton on 02-22-2022 WBC Auto (Urine sed) [#/Area] 1-2 [HPF] 0-4 [facility] Basophils Auto (Bld) [#/Vol] Ordered By: Obie Hylton on 02-22-2022 Basophils (Bld) [#/Vol] 0.0 10*3/uL 0.0-0.2 [facility] Basophils/100 WBC Auto (Bld) Ordered By: Obie Hylton on 02-22-2022 Basophils/100 WBC (Bld) 0.2 % . [facility] Bilirubin Test strip Ql (U)O rdered By: Obie Hylton on 02-22-2022 Bilirubin Ql (U) Negative Negative [facility] Blood hemoglobin measurement (mass/volume)Ordered By: Obie Hylton on 02-22-2022 Hemoglobin (Bld) [Mass/Vol] 12.3 g/dL 11.8-15.4 [facility] Blood leukocytes automated c ount (number/volume)Ordered By: Obie Hylton on 02-22-2022 WBC (Bld) [#/Vol] 5.1 10*3/uL 4.5-11.0 [facility] Color Auto (U)Ordered By: Cindy Hylton on 02-22-2022 Color (U) Yellow Yellow [facility] Creatinine and Glomerular fi ltration rate.predicted panel (S/P/Bld)Ordered By: Obie Hylton on 02-22-2022 Creatinine [Mass/Vol] 1.16 mg/dL 0.44-1.03 [facility] [place] Eosinophils Auto (Bld) [#/Vo l]Ordered By: Obie Hylton on 02-22-2022 Eosinophils (Bld) [#/Vol] 0.1 10*3/uL 0.0-0.45 [facility] Eosinophils/100 WBC Auto (Bl d)Ordered By: Obie Hylton on 02-22-2022 Eosinophils/100 WBC (Bld) 1.4 % . [facility] Erythrocyte distribution wid th Auto (RBC) [Ratio]Ordered By: Obie Hylton on 02-22-2022 Erythrocyte distribution width (RBC) [Ratio] 15.3 % 11.9-15.3 [facility] Estimated glomerular filtrat ion rate (GFR) non- AmericanOrdered By: Obie Hylton on 02-22-2022 GFR/1.73 sq M.predicted among non-blacks MDRD (S/P/Bld) [Vol rate/Area] 45 mL/Min [facility] Globulin Calc (S) [Mass/Vol] Ordered By: Obie Hylton on 02-22-2022 Globulin (S) [Mass/Vol] 2.5 g/dL [facility] Hematocrit Auto (Bld) [Volum e fraction]Ordered By: Obie Hylton on 02-22-2022 Hematocrit (Bld) [Volume fraction] 36.6 % 34.0-46.4 [facility] Ketones Auto test strip (U) [Mass/Vol]Ordered By: Obie Hylton on 02-22-2022 Ketones (U) [Mass/Vol] Negative Negative [facility] Laboratory - Hematology and Cell countsOrdered By: Obie Hylton on 02-22-2022 Nucleated RBC/100 WBC (Bld) [Ratio] 0.0 % 0-0.5 [facility] - UrinalysisOrder ed By: Obie Hylton on 02-22-2022 Hyaline casts LM Ql (Urine sed) None seen [LPF] 0-8 [facility] Lymphocytes Auto (Bld) [#/Vo l]Ordered By: Obie Hylton on 02-22-2022 Lymphocytes (Bld) [#/Vol] 1.1 10*3/uL 1.00-4.8 [facility] Lymphocytes/100 WBC Auto (Bl d)Ordered By: Obie Hylton on 02-22-2022 Lymphocytes/100 WBC (Bld) 22.2 % . [facility] MCH Auto (RBC) [Entitic mass ]Ordered By: Obie Hylton on 02-22-2022 MCH (RBC) [Entitic mass] 33.0 pg 24.7-34.3 [facility] MCHC Auto (RBC) [Mass/Vol]Or dered By: Obie Hylton on 02-22-2022 MCHC (RBC) [Mass/Vol] 33.5 g/dL 32.0-35.0 [facility] [place] MCV Auto (RBC) [Entitic vol] Ordered By: Obie Hylton on 02-22-2022 MCV (RBC) [Entitic vol] 98.5 fL 80-100 [facility] Monocytes Auto (Bld) [#/Vol] Ordered By: Obie Hylton on 02-22-2022 Monocytes (Bld) [#/Vol] 0.5 10*3/uL 0.0-0.8 [facility] Monocytes/100 WBC Auto (Bld) Ordered By: Obie Hylton on 02-22-2022 Monocytes/100 WBC (Bld) 9.0 % . [facility] Neutrophils Auto (Bld) [#/Vo l]Ordered By: Obie Hylton on 02-22-2022 Neutrophils (Bld) [#/Vol] 3.5 10*3/uL 1.8-7.7 [facility] Neutrophils/100 WBC Auto (Bl d)Ordered By: Obie Hylton on 02-22-2022 Neutrophils/100 WBC (Bld) 67.2 % . [facility] Nitrite Test strip Ql (U)Ord ered By: Obie Hylton on 02-22-2022 Nitrite Ql (U) Negative Negative [facility] No Panel InformationOrdered By: Obie Hylton on 02-22-2022 Estimated GFR () 55 mL/Min [facility] Comment on above: GFR estimated refere nce range: According to KDOQI guidelines, <60 ml/min/1.73m2 is sufficient to diagnose a patient with chronic kidney disease. Pharmacy Creatinine Clearance (Chem N/A [facility] Platelet mean volume Auto (B ld) [Entitic vol]Ordered By: Obie Hylton on 02-22-2022 Platelet mean volume (Bld) [Entitic vol] 8.7 fL 6.3-10.7 [facility] Platelets Auto (Bld) [#/Vol] Ordered By: Obie Hylton on 02-22-2022 Platelets (Bld) [#/Vol] 182 10*3/uL 150-450 [facility] Protein Auto test strip (U) [Mass/Vol]Ordered By: Obie Hylton on 02-22-2022 Protein (U) [Mass/Vol] Negative Negative [facility] Protein [Mass/volume] in Ser um or PlasmaOrdered By: Obie Hylton on 02-22-2022 Protein [Mass/Vol] 6.0 g/dL 6.1-7.9 [facility] RBC Auto (Bld) [#/Vol]Ordere d By: Obie Hylton on 02-22-2022 RBC (Bld) [#/Vol] 3.72 10*6/uL 3.60-5.00 [facility] Serum or plasma alanine negro otransferase measurement without P-5'-P (enzymatic activiOrdered By: Obie Hylton on 02-22-2022 ALT No additional P-5'-P [Catalytic activity/Vol] 14 U/L 10-60 [facility] Serum or plasma albumin/glob ulin mass ratioOrdered By: Obie Hylton on 02-22-2022 Albumin/Globulin [Mass ratio] 1.4 {ratio} [facility] Serum or plasma alkaline glen sphatase measurement (enzymatic activity/volume)Ordered By: Obie Hylton on 02-22-2022 ALP [Catalytic activity/Vol] 54 U/L 32-92 [facility] Serum or plasma aspartate am inotransferase measurement (enzymatic activity/volume)Ordered By: Obie Hylton on 02-22-2022 AST [Catalytic activity/Vol] 17 U/L 10-42 [facility] Serum or plasma calcium olivia urement (mass/volume)Ordered By: Obie Hylton on 02-22-2022 Calcium [Mass/Vol] 9.0 mg/dL 8.2-10.2 [facility] Serum or plasma chloride wilner surement (moles/volume)Ordered By: Obie Hylton on 02-22-2022 Chloride [Moles/Vol] 107 mmol/L 95-114 [facility] Serum or plasma glucose olivia urement (mass/volume)Ordered By: Obie Hylton on 02-22-2022 Glucose [Mass/Vol] 90 mg/dL 70-100 [facility] Comment on above: ADA recommended refe [...] on 02-22-2022 Potassium [Moles/Vol] 4.2 mmol/L 3.5-5.1 [facility] [place] Serum or plasma sodium measu rement (moles/volume)Ordered By: Obie Hylton on 02-22-2022 Sodium [Moles/Vol] 139 mmol/L 136-146 [facility] Serum or plasma total biliru bin measurement (mass/volume)Ordered By: Obie Hylton on 02-22-2022 Bilirubin [Mass/Vol] 0.5 mg/dL 0.3-1.2 [facility] Serum or plasma total carbon dioxide measurement (moles/volume)Ordered By: Obie Hylton on 02-22-2022 CO2 [Moles/Vol] 24.9 mmol/L 22.0-30.0 [facility] Serum or plasma urea nitroge n measurement (mass/volume)Ordered By: Obie Hylton on 02-22-2022 Urea nitrogen [Mass/Vol] 25 mg/dL 9-23 [facility] Specific gravity Auto test s trip (U) [Rel density]Ordered By: Obie Hylton on 02-22-2022 Specific gravity (U) [Rel density] 1.015 1.001-1.03 0 [facility] Squamous epithelial cells de tection in urine sediment by light microscopyOrdered By: Obie Hylton on 02-22-2022 Epithelial cells.squamous LM Ql (Urine sed) 0-1 [HPF] 0-2 [facility] Urine bacteria detection by automated methodOrdered By: Obie Hylton on 02-22-2022 Bacteria Auto Ql (U) None seen None Seen [facility] Urine clarity by refractomet ry automatedOrdered By: Obie Hylton on 02-22-2022 Clarity Refractometry automated (U) Clear Clear [facility] Urine glucose measurement by automated test strip (mass/volume)Ordered By: Obie Hylton on 02-22-2022 Glucose Auto test strip (U) [Mass/Vol] Normal mg/dL Normal [facility] Urine hemoglobin detection b y automated test stripOrdered By: Obie Hylton on 02-22-2022 Hemoglobin Auto test strip Ql (U) 1+ Negative [facility] Urine leukocyte esterase det ection by automated test stripOrdered By: Obie Hylton on 02-22-2022 Leukocyte esterase Auto test strip Ql (U) Negative Negative [facility] Urobilinogen Auto test strip (U) [Mass/Vol]Ordered By: Obie Hylton on 02-22-2022 Urobilinogen (U) [Mass/Vol] Normal mg/dL Normal [facility] pH Auto test strip (U)Ordere d By: Obie Hylton on 02-22-2022 pH (U) 6.0 [pH] 5.0-9.0 [facility] WU DIGITAL SCREEN BILA TERALon 02-01-2022 BI-RADS 1 - Negative, no evidence of malignancy. Normal interval followup in 12 months. OVERALL ASSESSMENT- NEGATIVE A letter of notification will be sent to the patient regarding the results. [facility] HISTORY: Screening. Family history of breast carcinoma. TECHNIQUE: Bilateral digital screening mammogram with CAD. 2-D and 3-D tomography. FINDINGS: Two views of each breast show scattered areas of fibroglandular density. No change from prior studies, most recent 01/20/2021. Suspicious calcifications: None. Suspicious mass: None. (If skin markers were applied, circles represent skin lesions and linear markers represent scars.) [facility] W[facility] DIGITAL SCREEN BILA TERALOrdered By: Ishmael Valentin on 02-01-2022 [employer] Phone: [facility] WU DIGITAL SCREEN BILA TERALon 01-31-2022 Radiology Study observation (narrative) [employer] Phone: XR SHOULDER RIGHT (MIN 2 VIE WS)on 12-02-2021 FINDINGS/IMPRESSION: 1. No significant change since 08/10/2021. 2. Mild AC joint osteoarthrosis remains, with small marginal osteophytes. 3. Osseous ridging from chronic rotator cuff tendinopathy and small reactive subcortical cysts or surgical drill tracks remain in the greater tuberosity of the humerus. 4. No fracture, malalignment, or other acute bony abnormality is seen. [facility] CLINICAL HISTORY: Hi story of right rotator cuff repair surgery (Z98.890). RIGHT SHOULDER 3 VIEWS: COMPARISON: 08/10/2021. [facility] Norm Mcdonnell MD - 12/02/2021 CLINICAL [...] or other acute bony abnormality is seen. [employer] Work Phone: XR SHOULDER RIGHT (MIN 2 VIE WS)Ordered By: Norm Mcdonnell on 12-02-2021 [employer] Phone: XR SHOULDER RIGHT (MIN 2 VIE WS)on 11-30-2021 Radiology Study observation (narrative) [employer] Phone: Microscopic Urinalysison - Synchronized Bacteria, UA TRACE Abnormal None Synchronized Epithelial Cells UA 0 TO 2 Synchronized Interpretation and review of laboratory results Abnormal Synchronized RBC, UA 0 TO 2 Synchronized WBC, UA 0 TO 2 [facility] [employer] Urinalysis with Reflex to Cu ltureon 10-26-2021 Bilirubin Urine Negative NEGATIVE [facility] Color, UA Yellow Yellow [facility] Glucose, Ur Negative NEGATIVE [facility] Interpretation and review of laboratory results Abnormal [facility] Ketones Ql (U) Negative NEGATIVE [facility] Leukocyte esterase Test strip Ql (U) Negative NEGATIVE [facility] Nitrite, Urine Negative NEGATIVE [facility] pH, UA 5.5 [facility] Protein, UA Negative NEGATIVE [facility] Specific [place]bler, UA 1.025 High [facility] Turbidity UA Clear Clear [facility] Urine Hgb 2+ Abnormal NEGATIVE [facility] Urobilinogen, Urine Normal Normal [facility] Microscopic Urinalysison - [facility] Bacteria, UA 1+ Abnormal None [facility] Epithelial Cells UA 2 TO 5 /HPF [facility] Interpretation and review of laboratory results Abnormal [facility] RBC, UA 2 TO 5 [facility] WBC, UA 20 TO 50 0 /HPF [facility] Yeast, UA OCCASIONAL Abnormal None [facility] Urinalysison 10-14-2021 Bilirubin Urine Negative NEGATIVE [facility] Color, UA Yellow Yellow [facility] Glucose, Ur Negative NEGATIVE [facility] Interpretation and review of laboratory results Abnormal [facility] Ketones Ql (U) Negative NEGATIVE [facility] Leukocyte esterase Test strip Ql (U) 2+ Abnormal NEGATIVE [facility] Nitrite, Urine Negative NEGATIVE [facility] pH, UA 6.0 [facility] Protein, UA TRACE Abnormal NEGATIVE [facility] Specific Ambler, UA 1.020 [facility] Turbidity UA Hazy Abnormal Clear [facility] Urinalysis Comments [facility] Urine Hgb 2+ Abnormal NEGATIVE [facility] Urobilinogen, Urine Normal Normal [facility] XR SHOULDER RIGHT (MIN 2 VIE WS)on 08-10-2021 Mild degenerative changes. No acute process. [facility] HISTORY: Pain status post right shoulder arthroscopy TECHNIQUE: 3 views of the right shoulder were obtained COMPARISON: 04/27/2021 FINDINGS: There are mild degenerative changes of acromioclavicular joint. No fracture, dislocation or acute osseous abnormality seen. [facility] John Jauregui MD - 08/10/2021 HISTORY: Pain status post right shoulder arthroscopy TECHNIQUE: 3 views of the right shoulder were obtained COMPARISON: 04/27/2021 FINDINGS: There are mild degenerative changes of acromioclavicular joint. No fracture, dislocation or acute osseous abnormality seen. IMPRESSION: Mild degenerative changes. No acute process. [employer] Phone: Radiology Study observation (narrative) [employer] Phone: XR SHOULDER RIGHT (MIN 2 VIE WS)Ordered By: John Jauregui on 08-10-2021 [employer] Phone: MRI Shoulder w/o Righton MRI Shoulder [...] by Grayson Coronado on 07/12/2021 1110 Normal [facility] XR SHOULDER RIGHT (MIN 2 VIE WS)Ordered By: Christian Meyer on 04-27-2021 Degenerative changes not unusual for age at the acromioclavicular joint. [employer] Phone: EXAM: XR SHOULDER RI GHT (MIN 2 VIEWS) HISTORY: M25.511. 75-year-old female right shoulder pain. COMPARISON: None. TECHNIQUE: 3 views right shoulder, 4 images. FINDINGS: Moderate degenerative change acromioclavicular joint. Minimal narrowing glenohumeral joint. Negative for calcific bursitis. [employer] Phone: Magdiel, Mhpn Incoming R adiant Results From [employer] - 04/27/2021 12:21 PM EDT EXAM: XR SHOULDER RIGHT (MIN 2 VIEWS) HISTORY: M25.511. 75-year-old female right shoulder pain. COMPARISON: None. TECHNIQUE: 3 views right shoulder, 4 images. FINDINGS: Moderate degenerative change acromioclavicular joint. Minimal narrowing glenohumeral joint. Negative for calcific bursitis. IMPRESSION: Degenerative changes not unusual for age at the acromioclavicular joint. [employer] Phone: [employer] Phone: CBCOrdered By: Roni Dahl on 01-09-2021 Hematocrit (Bld) [Volume fraction] 33.2 % Low 36 - 46 % [employer] Phone: Hemoglobin.gastrointe stinal spec 1 Ql (Stl) 11.5 g/dL Low 12.0 - 16.0 g/dL [employer] Phone: Interpretation and review of laboratory results Abnormal [employer] Phone: MCH (RBC) [Entitic mass] 31.6 pg 26 - 34 pg [employer] Phone: MCHC (RBC) [Mass/Vol] 34.7 g/dL 31 - 3 7 g/dL [employer] Phone: MCV (RBC) [Entitic vol] 91.2 fL 80 - 100 fL [employer] Phone: NRBC Automated NOT REPORTED per 100 WBC [employer] Phone: Platelet distribution width (Bld) [Ratio] 15.6 % High 12.1 - 15.2 % [employer] Phone: Platelet mean volume (Bld) [Entitic vol] NOT REPORTED 6.0 - 12.0 fL [employer] Phone: Platelets (Bld) [#/Vol] 223 10*3/uL [employer] Phone: RBC (Bld) [#/Vol] 3.64 10*6/uL Low 4.0 - 5.2 m/uL [employer] Phone: WBC (Bld) [#/Vol] 4.1 10*3/uL [employer] Phone: [employer] Phone: CBCOrdered By: Roni Dahl on 12-09-2020 Hematocrit (Bld) [Volume fraction] 34.2 % Low 36 - 46 % [employer] Phone: Hemoglobin.gastrointe stinal spec 1 Ql (Stl) 11.6 g/dL Low 12.0 - 16.0 g/dL [employer] Phone: Interpretation and review of laboratory results Abnormal [employer] Phone: MCH (RBC) [Entitic mass] 30.6 pg 26 - 34 pg [employer] Phone: MCHC (RBC) [Mass/Vol] 33.8 g/dL 31 - 3 7 g/dL [employer] Phone: MCV (RBC) [Entitic vol] 90.7 fL 80 - 100 fL [employer] Phone: NRBC Automated NOT REPORTED per 100 WBC [employer] Phone: Platelet distribution width (Bld) [Ratio] 14.1 % 12.1 - 15.2 % [employer] Work Phone: Platelet mean volume (Bld) [Entitic vol] NOT REPORTED 6.0 - 12.0 fL [employer] Phone: Platelets (Bld) [#/Vol] 365 10*3/uL [employer] Work Phone: RBC (Bld) [#/Vol] 3.78 10*6/uL Low 4.0 - 5.2 m/uL [employer] Work Phone: WBC (Bld) [#/Vol] 6.3 10*3/uL [employer] Work Phone: [employer] Work Phone: CBC Auto DifferentialOrdered By: Darryl Sandoval on 11-27-2020 [employer] # 0.16 [employer] [facility] Work Phone: Absolute Immature Granulocyte 0.35 High [employer] Work Phone: Absolute Lymph # 1.23 [employer] [facility] Work Phone: [employer] [place] # 0.95 [employer] [facility] Work Phone: Basophils (Bld) [#/Vol] 10*3/uL [employer] Work Phone: Basophils/100 WBC (Bld) 0 % 0 - 2 % [employer] Work Phone: Differential Type NOT REPORTED [employer] Work Phone: Eosinophils/100 WBC (Bld) 2 % 1 - 4 % [employer] Work Phone: Hematocrit (Bld) [Volume fraction] 34.3 % Low 36.3 - 47.1 % [employer] Work Phone: Hemoglobin.gastrointe stinal spec 1 Ql (Stl) 11.0 g/dL Low 11.9 - 15.1 g/dL [employer] Phone: Immature granulocytes/100 WBC (Bld) 5 % High 0 [employer] Phone: Interpretation and review of laboratory results Abnormal [employer] Phone: Lymphocytes/100 WBC (Bld) 16 % Low 24 - 43 % [employer] Phone: MCH (RBC) [Entitic mass] 30.5 pg 25.2 - 33.5 pg [employer] Phone: MCHC (RBC) [Mass/Vol] 32.1 g/dL 28.4 - 34.8 g/dL [employer] Phone: MCV (RBC) [Entitic vol] 95.0 fL 82.6 - 102.9 fL [employer] Phone: Monocytes/100 WBC (Bld) 12 % 3 - 12 % [employer] Phone: NRBC Automated 0.0 0.0 per 100 WBC [employer] Phone: Platelet distribution width (Bld) [Ratio] 13.3 % 11.8 - 14.4 % [employer] Phone: Platelet Estimate NOT REPORTED [employer] Phone: Platelet mean volume (Bld) [Entitic vol] 9.7 fL 8.1 - 13.5 fL [employer] Phone: Platelets (Bld) [#/Vol] 242 10*3/uL [employer] Phone: RBC (Bld) [#/Vol] 3.61 10*6/uL Low 3.95 - 5.11 m/uL [employer] Phone: RBC (Bld) [#/Vol] NOT REPORTED [employer] Phone: Segmented neutrophils/100 WBC (Bld) 65 % 36 - 65 % [employer] Phone: Segs Absolute 5[employer] Work Phone: WBC (Bld) [#/Vol] 7.8 10*3/uL [employer] Phone: WBC (Bld) [#/Vol] NOT REPORTED [employer] Phone: [employer] Phone: COVID-19, RapidOrdered By: Vazquez Sandoval on 11-27-2020 SARS-CoV-2 (COVID-19) RNA JUAQUIN+probe Ql (Unsp spec) Not detected Not Detected [employer] Phone: Comment on above: Rapid NAAT: The [...] management decisions. Fact sheet for Healthcare Providers: https://www.fda.gov/media/408058/download Fact sheet for Patients: https://www.fda.gov/media/997530/download Methodology: Isothermal Nucleic Acid Amplification Specimen Description .NASOPHARYNGEAL SWAB [employer] Phone: [employer] Phone: Comprehensive Metabolic Pane lOrdered By: Darryl Sandoval on 11-27-2020 Albumin [Mass/Vol] 3 g/dL Low 3.5 - 5.2 g/dL [employer] Phone: Albumin/Globulin [Mass ratio] 0.8 {ratio} Low [employer] Phone: ALP (Bld) [Catalytic activity/Vol] 154 U/L High 35 - 104 U/L [employer] Phone: ALT [Catalytic activity/Vol] 45 U/L High 5 - 33 U/L [employer] Phone: Anion gap [Moles/Vol] 11 mmol/L 9 - 17 mmol/L [employer] Phone: AST [Catalytic activity/Vol] 44 U/L High <32 [employer] Phone: Bilirubin [Mass/Vol] 0.35 mg/dL 0.3 - 1 .2 mg/dL [employer] Phone: Calcium [Mass/Vol] 9.4 mg/dL 8.6 - 10. 4 mg/dL [employer] Phone: Chloride [Moles/Vol] 103 mmol/L 98 - 10 7 mmol/L [employer] Phone: CO2 [Moles/Vol] 21 mmol/L 20 - 31 mmol/L [employer] Phone: Creatinine [Mass/Vol] 1 mg/dL High 0.50 - 0.90 mg/dL [employer] Phone: Free PSA/Total PSA [Mass fraction] 7.0 g/dL 6.4 - 8.3 g/dL [employer] Phone: GFR >60 >60 mL/min [employer] Phone: GFR Non- 54 mL/min Low >60 [employer] Phone: Glucose [Mass/Vol] 87 mg/dL 70 - 99 mg/dL [employer] Phone: Interpretation and review of laboratory results Abnormal [employer] Phone: Potassium [Moles/Vol] 4.1 mmol/L 3.7 - 5.3 mmol/L [employer] Phone: Sodium [Moles/Vol] 135 mmol/L 135 - 144 mmol/L [employer] Phone: Urea nitrogen (BldV) [Mass/Vol] 16 mg/dL 8 - 23 mg/dL [employer] Phone: Urea nitrogen/Creatinine (Bld) [Mass ratio] 16 [employer] Phone: [employer] Phone: Laboratory - Chemistry and C hemistry - challengeOrdered By: Darryl Sandoval on 11-27-2020 GFR/1.73 sq M.predicted MDRD (S/P/Bld) [Vol rate/Area] [employer] Phone: Comment on above: Average GFR for 70 o r more years old: 75 mL/min/1.73sq m Chronic Kidney Disease: <60 mL/min/1.73sq m Kidney failure: <15 mL/min/1.73sq m eGFR calculated using average adult body mass. Additional eGFR calculator available at: http://www.[employer]/multiple_crcl_2011.htm Stage 1: Some kidney damage normal GFR Stage 2: Mild kidney damage GFR 60-89 Stage 3: Moderate kidney damage GFR 30-59 Stage 4: Severe kidney damage GFR 15-29 Stage 5: Severe kidney damage GFR <15 ESRD - chronic treatment by dialysis or transplant LipaseOrdered By: Darryl farias on 11-27-2020 Lipase [Catalytic activity/Vol] 24 U/L 13 - 60 U/L [employer] Phone: [employer] Phone: MagnesiumOrdered By: Darryl Sandoval on 11-27-2020 Magnesium [Mass/Vol] 2.3 mg/dL 1.6 - 2 .6 mg/dL [employer] Phone: [employer] Phone: Urinalysis with MicroscopicO rdered By: Darryl Sandoval on 11-27-2020 - [facility] [employer] Work Phone: Amorphous, UA NOT REPORTED None [facility] Work Phone: Bacteria, UA TRACE Abnormal None [facility] Work Phone: Bilirubin Urine Negative NEGATIVE [facility] Work Phone: Casts UA NOT REPORTED /LPF [facility] [employer] Work Phone: Color, UA YELLOW YELLOW [facility] Work Phone: Crystals, UA NOT REPORTED None /HPF [facility] Work Phone: Epithelial Cells UA 2 TO 5 [facility] Work Phone: Glucose, Ur Negative NEGATIVE [facility] Work Phone: Interpretation and review of laboratory results Abnormal [facility] Work Phone: Ketones Ql (U) Negative NEGATIVE [facility] Work Phone: Leukocyte esterase Test strip Ql (U) Negative NEGATIVE [facility] Work Phone: Mucus, UA TRACE Abnormal None [facility] Work Phone: Nitrite, Urine Negative NEGATIVE [facility] Work Phone: Other Observations UA NOT REPORTED NOT REQ. [facility] [employer] Work Phone: pH, UA 6.0 [facility] Work Phone: Protein, UA Negative NEGATIVE [facility] Work Phone: RBC, UA 2 TO 5 [facility] Work Phone: Renal Epithelial, UA NOT REPORTED 0 /HPF [facility] Work Phone: Specific Am[place], UA 1.025 High [facility] [employer] Work Phone: Trichomonas, UA NOT REPORTED None [facility] Work Phone: Turbidity UA CLEAR CLEAR [facility] Work Phone: Urinalysis Comments NOT REPORTED [facility] [employer] Work Phone: Urine Hgb 1+ Abnormal NEGATIVE [facility] [employer] Work Phone: Urobilinogen, Urine Normal Normal [facility] Phone: WBC, UA 0 TO 2 [employer] Work Phone: Yeast, UA NOT REPORTED None [facility] Work Phone: [employer] Work Phone: Comprehensive Metabolic Pane lOrdered By: Roni Dahl on 11-22-2020 Albumin [Mass/Vol] 3.5 g/dL 3.5 - 5.2 g/dL [employer] Phone: Albumin/Globulin Ratio NOT REPORTED [facility] Phone: ALP (Bld) [Catalytic activity/Vol] 67 U/L 35 - 104 U/L [employer] Work Phone: ALT [Catalytic activity/Vol] 22 U/L 5 - 33 U/L [employer] Phone: Anion gap [Moles/Vol] 7 mmol/L Low 9 - 17 mmol/L [employer] Phone: AST [Catalytic activity/Vol] 21 U/L <32 [employer] Phone: Bilirubin [Mass/Vol] 0.35 mg/dL 0.30 - 1.20 mg/dL [employer] Phone: Calcium [Mass/Vol] 8.9 mg/dL 8.6 - 10. 4 mg/dL [employer] Phone: Chloride [Moles/Vol] 103 mmol/L 98 - 10 7 mmol/L [employer] Phone: CO2 [Moles/Vol] 26 mmol/L 20 - 31 mmol/L [employer] Work Phone: Creatinine [Mass/Vol] 0.98 mg/dL High 0.50 - 0.90 mg/dL [employer] Phone: Free PSA/Total PSA [Mass fraction] 6.3 g/dL Low 6.4 - 8.3 g/dL [employer] Phone: GFR >60 >60 mL/min [employer] Phone: GFR Non- 55 mL/min Low >60 [employer] Phone: GFR/1.73 sq M.predicted MDRD (S/P/Bld) [Vol rate/Area] [employer] Phone: Comment on above: Average GFR for 70 o r more years old: 75 mL/min/1.73sq m Chronic Kidney Disease: <60 mL/min/1.73sq m Kidney failure: <15 mL/min/1.73sq m eGFR calculated using average adult body mass. Additional eGFR calculator available at: http://www.[employer]/multiple_crcl_2012.htm GFR/1.73 sq M.predicted MDRD (S/P/Bld) [Vol rate/Area] NOT REPORTED [employer] Phone: Glucose [Mass/Vol] 94 mg/dL 70 - 99 mg/dL [employer] Phone: Interpretation and review of laboratory results Abnormal [employer] Phone: Potassium [Moles/Vol] 3.3 mmol/L Low 3.7 - 5.3 mmol/L [employer] Phone: Sodium [Moles/Vol] 136 mmol/L 135 - 144 mmol/L [employer] Phone: Urea nitrogen (BldV) [Mass/Vol] 16 mg/dL 8 - 23 mg/dL [employer] Phone: Urea nitrogen/Creatinine (Bld) [Mass ratio] 16 [employer] Phone: [employer] Phone: AmylaseOrdered By: Naida estrada on 11-18-2020 Amylase [Catalytic activity/Vol] 141 U/L High 28 - 100 U/L [employer] Phone: Interpretation and review of laboratory results Abnormal [employer] Phone: Basic Metabolic PanelOrdered By: Naida Grissom on 11-18-2020 Anion gap [Moles/Vol] 10 mmol/L 9 - 17 mmol/L [employer] Phone: Calcium [Mass/Vol] 8.9 mg/dL 8.6 - 10. 4 mg/dL [employer] Phone: Chloride [Moles/Vol] 105 mmol/L 98 - 10 7 mmol/L [employer] Phone: CO2 [Moles/Vol] 21 mmol/L 20 - 31 mmol/L [employer] Phone: Creatinine [Mass/Vol] 1.06 mg/dL High 0.50 - 0.90 mg/dL [employer] Phone: GFR >60 >60 mL/min [employer] Phone: GFR Non- 51 mL/min Low >60 [employer] Phone: GFR/1.73 sq M.predicted MDRD (S/P/Bld) [Vol rate/Area] [employer] Phone: Comment on above: Average GFR for 70 o r more years old: 75 mL/min/1.73sq m Chronic Kidney Disease: <60 mL/min/1.73sq m Kidney failure: <15 mL/min/1.73sq m eGFR calculated using average adult body mass. Additional eGFR calculator available at: http://www.[employer].COM.[employer]/multiple_crcl_2012.htm GFR/1.73 sq M.predicted MDRD (S/P/Bld) [Vol rate/Area] NOT REPORTED [employer] Work Phone: Glucose [Mass/Vol] 139 mg/dL High 70 - 99 mg/dL [employer] Work Phone: Interpretation and review of laboratory results Abnormal [employer] Work Phone: Potassium [Moles/Vol] 3.4 mmol/L Low 3.7 - 5.3 mmol/L [facility] Work Phone: Sodium [Moles/Vol] 136 mmol/L 135 - 144 mmol/L [employer] Work Phone: Urea nitrogen (BldV) [Mass/Vol] 22 mg/dL 8 - 23 mg/dL [facility] Work Phone: Urea nitrogen/Creatinine (Bld) [Mass ratio] 21 High [employer] Work Phone: [employer] Work Phone: CBC auto differentialOrdered By: Naida Grissom on 11-18-2020 [employer] # 0.10 [employer] [facility] Work Phone: Absolute Immature Granulocyte NOT REPORTED [facility] Work Phone: Absolute Lymph # 0.60 Low [employer] [facility] Work Phone: Absolute [place] # 0.40 [facility] Work Phone: Basophils (Bld) [#/Vol] 0.00 10*3/uL [employer] Work Phone: Basophils/100 WBC (Bld) 0 % 0 - 2 % [employer] Work Phone: Differential Type YES [facility] Work Phone: Eosinophils/100 WBC (Bld) 1 % 0 - 5 % [employer] Work Phone: Hematocrit (Bld) [Volume fraction] 37.6 % 36 - 46 % [employer] Work Phone: Hemoglobin.gastrointe stinal spec 1 Ql (Stl) 12.9 g/dL 12.0 - 16.0 g/dL [employer] Phone: Immature Granulocytes NOT REPORTED 0 % [employer] Phone: Interpretation and review of laboratory results Abnormal [employer] Phone: Lymphocytes/100 WBC (Bld) 8 % Low 15 - 40 % [employer] Phone: MCH (RBC) [Entitic mass] 31.8 pg 26 - 34 pg [employer] Phone: MCHC (RBC) [Mass/Vol] 34.4 g/dL 31 - 3 7 g/dL [employer] Phone: MCV (RBC) [Entitic vol] 92.4 fL 80 - 100 fL [employer] Phone: Monocytes/100 WBC (Bld) 6 % 4 - 8 % [employer] Phone: NRBC Automated NOT REPORTED per 100 WBC [employer] Phone: Platelet distribution width (Bld) [Ratio] 14.1 % 12.1 - 15.2 % [employer] Phone: Platelet Estimate NOT REPORTED [employer] Phone: Platelet mean volume (Bld) [Entitic vol] NOT REPORTED 6.0 - 12.0 fL [employer] Phone: Platelets (Bld) [#/Vol] 179 10*3/uL [employer] Phone: RBC (Bld) [#/Vol] 4.07 10*6/uL 4.0 - 5.2 m/uL [employer] Phone: RBC (Bld) [#/Vol] NOT REPORTED [employer] Phone: Segmented neutrophils/100 WBC (Bld) 85 % High 47 - 75 % [employer] Phone: Segs [employer] 5[employer] Work Phone: WBC (Bld) [#/Vol] 6.9 10*3/uL [employer] Work Phone: WBC (Bld) [#/Vol] NOT REPORTED [employer] Phone: [employer] Work Phone: Hepatic Function PanelOrdere d By: Naida Grissom on 11-18-2020 Albumin [Mass/Vol] 3.7 g/dL 3.5 - 5.2 g/dL [employer] Phone: Albumin/Globulin Ratio NOT REPORTED [employer] Phone: ALP (Bld) [Catalytic activity/Vol] 84 U/L 35 - 104 U/L [employer] Phone: ALT [Catalytic activity/Vol] 63 U/L High 5 - 33 U/L [employer] Phone: AST [Catalytic activity/Vol] 104 U/L High <32 [employer] Phone: Bilirubin [Mass/Vol] 0.49 mg/dL 0.30 - 1.20 mg/dL [employer] Phone: Bilirubin, Indirect CANNOT BE CALCULATED 0.00 - 1.00 mg/dL [employer] Phone: Bilirubin.indirect [Mass/Vol] mg/dL <0.31 mg/dL [employer] Phone: Free PSA/Total PSA [Mass fraction] 6.9 g/dL 6.4 - 8.3 g/dL [employer] Phone: Globulin NOT REPORTED 1.5 - 3.8 g/dL [employer] Phone: Interpretation and review of laboratory results Abnormal [employer] Phone: [employer] Work Phone: LipaseOrdered By: Naida field on 11-18-2020 Lipase [Catalytic activity/Vol] 50 U/L 13 - 60 U/L [facility] Work Phone: Microscopic UrinalysisOrdere d By: Naida Grissom on 11-18-2020 - [facility] Work Phone: Amorphous, UA NOT REPORTED None [facility] Work Phone: Bacteria, UA 1+ Abnormal None [facility] Work Phone: Casts UA NOT REPORTED /LPF [facility] Work Phone: Crystals, UA NOT REPORTED None /HPF [facility] Work Phone: Epithelial Cells UA 0 TO 2 /HPF [facility] Work Phone: Mucus, UA NOT REPORTED None [facility] Work Phone: Other Observations UA NOT REPORTED NOT REQ. [facility] Work Phone: RBC, UA 0 TO 2 [facility] Work Phone: Renal Epithelial, UA NOT REPORTED 0 /HPF [facility] Work Phone: Trichomonas, UA NOT REPORTED None [facility] Work Phone: WBC, UA 2 TO 5 0 /HPF [facility] Work Phone: Yeast, UA NOT REPORTED None [facility] Work Phone: No Panel InformationOrdered By: Naida Grissom on 11-18-2020 Interpretation and review of laboratory results Abnormal [facility] Work Phone: [facility] Work Phone: [facility] Work Phone: Urinalysis, reflex to micros copicOrdered By: Naida Grissom on 11-18-2020 Bilirubin Urine Negative NEGATIVE [facility] Work Phone: Color, UA TARA Abnormal YELLOW [employer] Work Phone: Glucose, Ur Negative NEGATIVE [employer] Work Phone: Ketones Ql (U) Negative NEGATIVE [employer] Work Phone: Leukocyte esterase Test strip Ql (U) 1+ Abnormal NEGATIVE [employer] Work Phone: Nitrite, Urine Negative NEGATIVE [place] Work Phone: pH, UA 5.0 [employer] Work Phone: Protein, UA Negative NEGATIVE [employer] Work Phone: Specific Ambler, UA 1.025 [employer] Work Phone: Turbidity UA CLEAR CLEAR [employer] Work Phone: Urinalysis Comments [employer] Work Phone: Urine Hgb 1+ Abnormal NEGATIVE [employer] Work Phone: Urobilinogen, Urine Normal Normal [employer] Work Phone: CBC Auto Differentialon 08-01 Basophils (Bld) [#/Vol] 0.00 10*3/uL [employer] Work Phone: Basophils/100 WBC (Bld) 0 % 0 - 2 % [employer] Work Phone: Differential Type YES [employer] Work Phone: Eosinophils (Bld) [#/Vol] 0.10 10*3/uL [employer] Work Phone: Eosinophils/100 WBC (Bld) 2 % 0 - 5 % [employer] Work Phone: Erythrocyte distribution width (RBC) [Ratio] 14.3 % 12.1 - 15.2 % [employer] Work Phone: Hematocrit (Bld) [Volume fraction] 36.5 % 36 - 46 % [employer] Work Phone: Hemoglobin (Bld) [Mass/Vol] 12.3 g/dL 12 - 16 g/dL [employer] Phone: Interpretation and review of laboratory results Abnormal [employer] Phone: Lymphocytes (Bld) [#/Vol] 1.20 10*3/uL [employer] Work Phone: Lymphocytes/100 WBC (Bld) 24 % 15 - 40 % [employer] Phone: MCH (RBC) [Entitic mass] 32.7 pg 26 - 34 pg [employer] Work Phone: MCHC (RBC) [Mass/Vol] 33.9 g/dL 31 - 3 7 g/dL [employer] Phone: MCV (RBC) [Entitic vol] 96.6 fL 80 - 100 fL [employer] Phone: Monocytes (Bld) [#/Vol] 0.50 10*3/uL [employer] Phone: Monocytes/100 WBC (Bld) 9 % High 4 - 8 % [employer] Work Phone: Platelet mean volume (Bld) [Entitic vol] NOT REPORTED 6 - 12 fL [employer] Phone: Platelets (Bld) [#/Vol] NOT REPORTED [employer] Phone: Platelets (Bld) [#/Vol] 223 10*3/uL [employer] Phone: RBC (Bld) [#/Vol] 3.77 10*6/uL Low 4 - 5.2 m/uL [employer] Phone: RBC morphology finding Nom (Bld) NOT REPORTED [employer] Phone: Segmented neutrophils/100 WBC (Bld) 65 % 47 - 75 % [employer] Work Phone: Segs Absolute 3.30 [employer] Work Phone: WBC (Bld) [#/Vol] 5.1 10*3/uL [employer] Phone: WBC (Bld) [#/Vol] NOT REPORTED per 100 WBC [employer] Phone: WBC Morphology NOT REPORTED [employer] Work Phone: Comprehensive Metabolic Pane trevor 08-11-2020 Albumin [Mass/Vol] 3.9 g/dL 3.5 - 5.2 g/dL [employer] Phone: Albumin/Globulin [Mass ratio] NOT REPORTED [employer] Phone: ALP [Catalytic activity/Vol] 76 U/L 35 - 104 U/L [employer] Phone: ALT [Catalytic activity/Vol] 16 U/L 5 - 33 U/L [employer] Phone: Anion gap [Moles/Vol] 10 mmol/L 9 - 17 mmol/L [employer] Work Phone: AST [Catalytic activity/Vol] 19 U/L <32 [employer] Phone: Bilirubin Ql (U) 0.35 mg/dL 0.3 - 1.2 mg/dL [employer] Phone: Bun/Cre Ratio 23 High [employer] Work Phone: Calcium [Mass/Vol] 9.9 mg/dL 8.6 - 10. 4 mg/dL [employer] Work Phone: Chloride [Moles/Vol] 105 mmol/L 98 - 10 7 mmol/L [employer] Phone: CO2 [Moles/Vol] 25 mmol/L 20 - 31 mmol/L [employer] Phone: Creatinine [Mass/Vol] 1.14 mg/dL High 0.5 - 0.9 mg/dL [employer] Phone: GFR 56 mL/min Low >60 [employer] Phone: GFR Non- 46 mL/min Low >60 [employer] Phone: GFR/1.73 sq M predicted among non-blacks MDRD (S/P/Bld) [Vol rate/Area] [employer] Phone: Comment on above: Average GFR for 70 o r more years old: 75 mL/min/1.73sq m Chronic Kidney Disease: <60 mL/min/1.73sq m Kidney failure: <15 mL/min/1.73sq m eGFR calculated using average adult body mass. Additional eGFR calculator available at: http://www.Appcelerator/multiple_crcl_2012.htm GFR/1.73 sq M predicted among non-blacks MDRD (S/P/Bld) [Vol rate/Area] NOT REPORTED [employer] Phone: Glucose [Mass/Vol] 98 mg/dL 70 - 99 mg/dL [employer] Phone: Interpretation and review of laboratory results Abnormal [employer] Phone: Potassium [Moles/Vol] 4.3 mmol/L 3.7 - 5.3 mmol/L [employer] Phone: Protein [Mass/Vol] 6.7 g/dL 6.4 - 8.3 g/dL [employer] Phone: Sodium [Moles/Vol] 140 mmol/L 135 - 144 mmol/L [employer] Phone: Urea nitrogen [Mass/Vol] 26 mg/dL High 8 - 23 mg/dL [employer] Phone: Lipid Panelon 08-11-2020 Cholesterol [Mass/Vol] 126 mg/dL <200 [employer] Phone: Comment on above: Cholesterol Guidelines: <200 Desirable 200-240 Borderline >240 Undesirable Cholesterol in HDL [Mass/Vol] 45 mg/dL >40 [employer] Phone: Comment on above: HDL Guidelines: <40 Undesirable 40-59 Borderline >59 Desirable Cholesterol in LDL [Mass/Vol] 62 mg/dL 0 - 130 mg/dL [employer] Phone: Comment on above: LDL Guidelines: <100 Desirable 100-129 Near to/above Desirable 130-159 Borderline >159 Undesirable Direct (measured) LDL and calculated LDL are not interchangeable tests. Cholesterol in VLDL [Mass/Vol] NOT REPORTED 1 - 30 mg/dL [employer] Phone: Cholesterol.total/Cho lesterol in HDL [Mass ratio] 2.8 {ratio} <5 [employer] Phone: Triglyceride [Mass/Vol] 94 mg/dL <150 [employer] Phone: Comment on above: Triglyceride Guidelines: <150 Desirable 150-199 Borderline 200-499 High >499 Very high Based on AHA Guidelines for fasting triglyceride, March 2012. Magnesiumon 08-11-2020 Magnesium [Mass/Vol] 2.1 mg/dL 1.6 - 2 .6 mg/dL [employer] Phone: Otheron 08-11-2020 Immature granulocytes (Bld) [#/Vol] NOT REPORTED [employer] Phone: Patient Fasting?on 1 Patient Fasting? yes [employer] Phone: TSH with Reflexon 08-11-2020 TSH Qn 2.05 m[IU]/L [employer] Phone: Vitamin D 25 Hydroxyon 08-11 Vit D, 25-Hydroxy 50.9 ng/mL 30 - 100 ng/mL [employer] Phone: Comment on above: Reference Range: Vitamin D status Range Deficiency <20 ng/mL Mild Deficiency 20-30 ng/mL Sufficiency 30-100 ng/mL Toxicity >100 ng/mL CBC Auto Differentialon 10-0 Basophils (Bld) [#/Vol] 0.00 10*3/uL [place] Basophils/100 WBC (Bld) 1 % 0 - 2 % [place] Differential Type YES [facility] [place] Eosinophils (Bld) [#/Vol] 0.10 10*3/uL [place] Eosinophils/100 WBC (Bld) 1 % 0 - 5 % [place] Erythrocyte distribution width (RBC) [Ratio] 14.2 % 12.1 - 15.2 % [place] Hematocrit (Bld) [Volume fraction] 37.4 % 36 - 46 % [place] Hemoglobin (Bld) [Mass/Vol] 12.4 g/dL 12 - 16 g/dL [place] Interpretation and review of laboratory results Abnormal [place] Lymphocytes (Bld) [#/Vol] 1.50 10*3/uL [place] Lymphocytes/100 WBC (Bld) 24 % 15 - 40 % [place] MCH (RBC) [Entitic mass] 32.1 pg 26 - 34 pg [place] MCHC (RBC) [Mass/Vol] 33.2 g/dL 31 - 3 7 g/dL [place] MCV (RBC) [Entitic vol] 96.7 fL 80 - 100 fL [place] Monocytes (Bld) [#/Vol] 0.50 10*3/uL [place] Monocytes/100 WBC (Bld) 9 % High 4 - 8 % [place] Platelet mean volume (Bld) [Entitic vol] NOT REPORTED 6 - 12 fL [place] Platelets (Bld) [#/Vol] 205 10*3/uL [place] Platelets (Bld) [#/Vol] NOT REPORTED [place] RBC (Bld) [#/Vol] 3.87 10*6/uL Low 4 - 5.2 m/uL [place] RBC morphology finding Nom (Bld) NOT REPORTED [place] Segmented neutrophils/100 WBC (Bld) 65 % 47 - 75 % [place] Segs Absolute 4.10 [place] WBC (Bld) [#/Vol] NOT REPORTED per 100 WBC [place] WBC (Bld) [#/Vol] 6.2 10*3/uL [place] WBC Morphology NOT REPORTED [place], [place] CT Head WO Contraston 2019 CT [...] by noncontrast CT. There is intracranial atherosclerosis. [place] Magdiel, Mhpn Incoming R adiant Results From [employer] - 03/31/2020 4:[address] head [...] MRI would be recommended for further evaluation. [place] 1. No acute intracra nial abnormality. 2. Stable chronic small vessel ischemic disease. 3. Intracranial atherosclerosis. If the patient has a focal neurologic deficit or there is clinical suspicion for acute cerebrovascular accident, brain MRI would be recommended for further evaluation. [place] Comprehensive Metabolic Pane l w/ Reflex to MGon 03-31-2020 Albumin [Mass/Vol] 4.2 g/dL 3.5 - 5.2 g/dL [place] Albumin/Globulin [Mass ratio] NOT REPORTED [place] ALP [Catalytic activity/Vol] 75 U/L 35 - 104 U/L [place] ALT [Catalytic activity/Vol] 11 U/L 5 - 33 U/L [place] Anion gap [Moles/Vol] 8 mmol/L Low 9 - 17 mmol/L [place] AST [Catalytic activity/Vol] 17 U/L <32 [place] Bilirubin Ql (U) 0.38 mg/dL 0.3 - 1.2 mg/dL [place] Bun/Cre Ratio 21 High [place] Calcium [Mass/Vol] 9.1 mg/dL 8.6 - 10. 4 mg/dL [place] Chloride [Moles/Vol] 98 mmol/L 98 - 10 7 mmol/L [place] CO2 [Moles/Vol] 28 mmol/L 20 - 31 mmol/L [place] Creatinine [Mass/Vol] 1.04 mg/dL High 0.5 - 0.9 mg/dL [place] GFR >60 >60 mL/min [place] GFR Non- 52 mL/min Low >60 [place] GFR/1.73 sq M predicted among non-blacks MDRD (S/P/Bld) [Vol rate/Area] [place] Comment on above: Average GFR for 70 o r more years old: 75 mL/min/1.73sq m Chronic Kidney Disease: <60 mL/min/1.73sq m Kidney failure: <15 mL/min/1.73sq m eGFR calculated using average adult body mass. Additional eGFR calculator available at: http://www.Appcelerator/multiple_crcl_2012.htm GFR/1.73 sq M predicted among non-blacks MDRD (S/P/Bld) [Vol rate/Area] NOT REPORTED [place] Glucose [Mass/Vol] 94 mg/dL 70 - 99 mg/dL [place] Interpretation and review of laboratory results Abnormal [place] Potassium [Moles/Vol] 4.2 mmol/L 3.7 - 5.3 mmol/L [place] Protein [Mass/Vol] 7.1 g/dL 6.4 - 8.3 g/dL [place] Sodium [Moles/Vol] 134 mmol/L Low 135 - 144 mmol/L [place] Urea nitrogen [Mass/Vol] 22 mg/dL 8 - 23 mg/dL [place] Microscopic Urinalysison Amorphous, UA NOT REPORTED None [place] Bacteria, UA NOT REPORTED None [place] Casts UA NOT REPORTED /LPF [place] Crystals, UA NOT REPORTED None /HPF [place] Epithelial Cells UA 0 TO 2 /HPF [place] Mucus, UA NOT REPORTED None [place] Other Observations UA NOT REPORTED NOT REQ. M [place] RBC (U) [#/Vol] 2 TO 5 [place] Renal Epithelial, UA NOT REPORTED 0 /HPF [place], [place] Trichomonas, UA NOT REPORTED None [facility] [place] WBC, UA 0 TO 2 0 /HPF [place] Yeast, UA NOT REPORTED None [place], [place] - [place] Otheron 03-31-2020 Immature granulocytes (Bld) [#/Vol] NOT REPORTED 0 % [place] TSH with Reflexon 03-31-2020 TSH Qn 1.98 m[IU]/L [place] Troponinon 03-31-2020 Troponin I.cardiac [Mass/Vol] [place] Comment on above: Reference Range: <0.03 [...] diagnosis. Troponin T.cardiac [Mass/Vol] ug/L <0.03 ng/mL [place] Comment on above: Troponin T results c annot be compared to Troponin-I results. Troponin, High Sensitivity NOT REPORTED 0 - 14 ng/L [place] Urinalysis, reflex to micros copicon 03-31-2020 Bilirubin Urine Negative NEGATIVE [place] Color, UA YELLOW YELLOW [place] Glucose, Ur Negative NEGATIVE [place] Interpretation and review of laboratory results Abnormal [place] Ketones Ql (U) Negative NEGATIVE [place] Leukocyte esterase Test strip Ql (U) Negative NEGATIVE [place] Nitrite, Urine Negative NEGATIVE [place] pH, UA 7.0 [place] Protein (U) [Mass/Vol] Negative NEGATIVE [place] Specific Ambler, UA 1.005 [place], [place] Turbidity UA CLEAR CLEAR [place] Urinalysis Comments [place] Urine Hgb TRACE Abnormal NEGATIVE [place] Urobilinogen, Urine Normal Normal [place] XR CHEST PORTABLEon 03-31-20 20 Negative chest. [place] Magdiel, Mhpn Incoming R adiant Results From [employer] - 03/31/2020 2:47 PM EDT EXAM: XR CHEST PORTABLE HISTORY: Reason for exam:->gen weakness 74-year-old female COMPARISON: Chest 07/07/2019 TECHNIQUE: AP portable chest 1424 hours FINDINGS: Heart size normal. Lungs clear. Bony thorax and upper abdomen normal. IMPRESSION: Negative chest. [employer] [place] EXAM: XR CHEST STARLA BLE HISTORY: Reason for exam:->gen weakness 74-year-old female COMPARISON: Chest 07/07/2019 TECHNIQUE: AP portable chest 1424 hours FINDINGS: Heart size normal. Lungs clear. Bony thorax and upper abdomen normal. Ide[employer]2 CBC Auto DifferentialOrdered By: Reagan Pascal on 07-07-2019 Absolute [employer] # 0.10 [employer] [facility] Work Phone: Absolute Immature Granulocyte NOT REPORTED [facility] [employer] Work Phone: Absolute Lymph # 1.20 [facility] Work Phone: Absolute [place] # 0.40 [employer] Work Phone: Basophils (Bld) [#/Vol] 0.00 10*3/uL [employer] Work Phone: Basophils/100 WBC (Bld) 0 % 0 - 2 % [employer] Work Phone: Differential Type YES [employer] Work Phone: Eosinophils/100 WBC (Bld) 2 % 0 - 5 % [employer] Phone: Erythrocyte distribution width (RBC) [Ratio] 14.6 % 12.1 - 15.2 % [employer] Phone: Hematocrit (Bld) [Volume fraction] 35.9 % Low 36 - 46 % [employer] Work Phone: Hemoglobin (Bld) [Mass/Vol] 12.2 g/dL 12 - 16 g/dL [employer] Phone: Immature Granulocytes NOT REPORTED 0 % M [employer] Work Phone: Interpretation and review of laboratory results Abnormal [employer] Phone: Lymphocytes/100 WBC (Bld) 28 % 15 - 40 % [employer] Work Phone: MCH (RBC) [Entitic mass] 33.2 pg 26 - 34 pg [employer] Work Phone: MCHC (RBC) [Mass/Vol] 34.1 g/dL 31 - 3 7 g/dL [employer] Work Phone: MCV (RBC) [Entitic vol] 97.3 fL 80 - 100 fL [employer] Work Phone: Monocytes/100 WBC (Bld) 10 % High 4 - 8 % [employer] Work Phone: MPV NOT REPORTED 6 - 12 fL [employer] Work Phone: NRBC Automated NOT REPORTED per 100 WBC [employer] Phone: Platelet Estimate NOT REPORTED [employer] Work Phone: Platelets (Bld) [#/Vol] 223 10*3/uL [employer] Work Phone: RBC (Bld) [#/Vol] 3.69 10*6/uL Low 4 - 5.2 m/uL [employer] Work Phone: RBC morphology finding Nom (Bld) NOT REPORTED [employer] Work Phone: Segmented neutrophils/100 WBC (Bld) 60 % 47 - 75 % [employer] Work Phone: Segs Absolute 2.[address] [employer] [facility] Work Phone: WBC (Bld) [#/Vol] 4.4 10*3/uL [employer] Work Phone: WBC Morphology NOT REPORTED [facility] Work Phone: Comprehensive Metabolic Pane lOrdered By: Reagan Pascal on 07-07-2019 Albumin [Mass/Vol] 4.2 g/dL 3.5 - 5.2 g/dL [employer] Work Phone: Albumin/Globulin Ratio NOT REPORTED [employer] Phone: ALP [Catalytic activity/Vol] 66 U/L 35 - 104 U/L [employer] Phone: ALT [Catalytic activity/Vol] 9 U/L 5 - 33 U/L [employer] Phone: Anion gap [Moles/Vol] 14 mmol/L 9 - 17 mmol/L [employer] Phone: AST [Catalytic activity/Vol] 17 U/L <32 [employer] Phone: Bilirubin [Mass/Vol] 0.32 mg/dL 0.3 - 1 .2 mg/dL [employer] Phone: Bun/Cre Ratio 17 [employer] Work Phone: Calcium [Mass/Vol] 10.2 mg/dL 8.6 - 10. 4 mg/dL [employer] Phone: Chloride [Moles/Vol] 103 mmol/L 98 - 10 7 mmol/L [employer] Phone: CO2 [Moles/Vol] 24 mmol/L 20 - 31 mmol/L [employer] Phone: Creatinine [Mass/Vol] 1.26 mg/dL High 0.5 - 0.9 mg/dL [employer] Phone: GFR 50 mL/min Low >60 [employer] Phone: GFR Comment [employer] Phone: Comment on above: Average GFR for 70 o r more years old: 75 mL/min/1.73sq m Chronic Kidney Disease: <60 mL/min/1.73sq m Kidney failure: <15 mL/min/1.73sq m eGFR calculated using average adult body mass. Additional eGFR calculator available at: http://www.MINGDAO.COM.StyleTrek/multiple_crcl_2012.htm GFR Non- 42 mL/min Low >60 [employer] Phone: GFR Staging NOT REPORTED [employer] Work Phone: Glucose [Mass/Vol] 106 mg/dL High 70 - 99 mg/dL [employer] Phone: Interpretation and review of laboratory results Abnormal [employer] Phone: Potassium [Moles/Vol] 3.8 mmol/L 3.7 - 5.3 mmol/L [employer] Phone: Protein [Mass/Vol] 7.4 g/dL 6.4 - 8.3 g/dL [employer] Phone: Sodium [Moles/Vol] 141 mmol/L 135 - 144 mmol/L [employer] Phone: Urea nitrogen [Mass/Vol] 22 mg/dL 8 - 23 mg/dL [employer] Phone: Lipid PanelOrdered By: Reagan Pascal on 07-07-2019 Cholesterol [Mass/Vol] 169 mg/dL <200 [employer] Phone: Comment on above: Cholesterol Guidelines: <200 Desirable 200-240 Borderline >240 Undesirable Cholesterol in HDL [Mass/Vol] 54 mg/dL >40 [employer] Phone: Comment on above: HDL Guidelines: <40 Undesirable 40-59 Borderline >59 Desirable Cholesterol in LDL [Mass/Vol] 91 mg/dL 0 - 130 mg/dL [employer] Phone: Comment on above: LDL Guidelines: <100 Desirable 100-129 Near to/above Desirable 130-159 Borderline >159 Undesirable Direct (measured) LDL and calculated LDL are not interchangeable tests. Cholesterol.total/Cho lesterol in HDL [Mass ratio] 3.1 {ratio} <5 [employer] Phone: Triglyceride [Mass/Vol] 118 mg/dL <150 [employer] Phone: Comment on above: Triglyceride Guidelines: <150 Desirable 150-199 Borderline 200-499 High >499 Very high Based on AHA Guidelines for fasting triglyceride, March 2012. VLDL NOT REPORTED 1 - 30 mg/dL [employer] Phone: MagnesiumOrdered By: Reagan borja on 07-07-2019 Magnesium [Mass/Vol] 2.4 mg/dL 1.6 - 2 .6 mg/dL [employer] Phone: Patient Fasting?Ordered By: Reagan Pascal on 07-07-2019 Patient Fasting? yes [employer] Phone: TSH with ReflexOrdered By: Jose Carlos Pascal on 07-07-2019 TSH Qn 2.66 m[IU]/L [employer] Phone: Vitamin D 25 HydroxyOrdered By: Reagan Pascal on 07-07-2019 Vit D, 25-Hydroxy 76.8 ng/mL 30 - 100 ng/mL [employer] Phone: Comment on above: Reference Range: Vitamin D status Range Deficiency <20 ng/mL Mild Deficiency 20-30 ng/mL Sufficiency 30-100 ng/mL Toxicity >100 ng/mL XR CHEST STANDARD (2 VW)Orde red By: Reagan Pascal on 07-07-2019 Stable chest compare d to 05/30/2019. [employer] Phone: EXAM: XR CHEST (2 VW ) HISTORY: Reason for exam:->htn 73-year-old female. COMPARISON: Prior studies, most recent being a two-view chest 05/30/2019 TECHNIQUE: Two-view chest FINDINGS: Surgical clips right upper quadrant abdomen. Heart size normal. Lungs clear. Minimal degenerative change thoracic spine. [employer] Phone: Magdiel, Mhpn Incoming R adiant Results From [employer] - 07/07/2019 10:15 AM EST EXAM: XR CHEST (2 VW) HISTORY: Reason for exam:->htn 73-year-old female. COMPARISON: Prior studies, most recent being a two-view chest 05/30/2019 TECHNIQUE: Two-view chest FINDINGS: Surgical clips right upper quadrant abdomen. Heart size normal. Lungs clear. Minimal degenerative change thoracic spine. IMPRESSION: Stable chest compared to 05/30/2019. [employer] Phone: Clostridium Difficile Toxin/ AntigenOrdered By: Roni Dahl on 04-23-2019 C DIFF AG + TOXIN Negative NEGATIVE [place] [facility] Services[facility]TE Comment on above: No C. difficile anti gen and Toxin Detected. Specimen Description .FECES [place] Stuarton 03-10-2018 CNOV Office Visit (SPNSMN) MARY JANE RIOS ([id number]) 1945 [facility] Time Provider Department03/10/18 9:55 AM ANDREWS FISH [facility] During your visit today, we recorded the following information about you: Pulse Respiration Blood pressure Weight 69/minute 18/minute 130/77 102.1 kg Height 1.626 [place] Fish MD 03/10/2018 10:50 AM [facility] SURGERY OUTPATIENT CONSULTSERVICE DATE: 03/10/2018PCP: JOHANNA AnneEFCITLALI PROVIDER:Lanie Prince, [id number] [address] [id number] requested for an opinion regarding the evaluation [...] : 10:44 AM PAGER:Referring Provider: LANIE PRINCE [[id number]]Allergies As of Date: 03/10/2018 Noted Allergy ReactionGLUTEN FLOUR 03/10/2018 8 - GI Upset 9 - ItchingLEXAPRO (ESCITALOPRAM OXALATE) 08/19/2007 9 - ItchingMORPHINE 07/04/2007SULFA (SULFONAMIDE ANTIBIOTICS) 07/04/2007Date Reviewed: 03/10/2018Reviewed by: Alanna Chang Ma - Fully AssessedReason for Visit: New Patient [172]Primary Visit Diagnosis:Degenerative scoliosis [M41.9]Order(s):XR LUMBAR LIMITED 2V AP/LAT [[id number]] Order #: [id number] FUTUREPrescriptions as of 03/10/2018 Sig: ASPIRIN 81 [...] by ANDREWS FISH MD on 03/10/18 Normal [facility] PROGRESSon 03-10-2018 Protein mass conc HNO ID: [id number] thor: Katelin Hollingsworth RtService: (none)Author Type: (none)Type: Progress NotesFiled: 03/10/2018 11:05 AMNote Text: Radiology Service Progress NotePATIENT NAME: Mary Jane SinghRN: [id number] OF SERVICE: March 10, 2018TIME: 11:04 AMPATIENT IDENTITY VERIFICATION COMPLETED USING TWO (2) METHODS: Patientconfirmed name verbally and Date of .PATIENT GENDER DATA: Female. status: : NoBreastfeeding status: NO.PATIENT RELEVANT IMPLANT DATA REVIEWED: Not ApplicableRADIOLOGY DEPARTMENT: General X-ray: Exam(s) Completed: Spine X-Ray(s):Lumbar AP / LAT / [id number] IV DATA: Not applicableSIGNED BY: Katelin Hollingsworth RtSept2017 11:04 AM Normal [facility] Protein mass conc HNO ID: [id number] thor: Andrews Reaganervice: (none)Author Type: PhysicianType: Progress NotesFiled: 03/10/2018 10:50 AMNote Text:SPINE SURGERY OUTPATIENT CONSULTSERVICE DATE: 03/10/2018PCP: Roni Motta, MDREFERRING PROVIDER:Lanie Prince, [id number] [id number] requested for an opinion regarding the evaluation [...] 10, 2018 : 10:44 AM PAGER: Normal [facility] XR LUMBAR 2V AP/LATon 2017 XR [...] lordosis, grade 1 spondylolisthesis of L4 upon U7Skuunhtab bodies: Normal in height. No vertebral fracture.Spine [...] STEIN MD on Mar 10 2018 11:23AM [id number] Normal [facility] Vital Signs Date Time Vital Sign Value Performing Clinician Facility 02-05-2025 09:34-0400 Body mass index (BMI) [Ratio] 36.73 kg/m2 Georges Barger PA-C Work Phone: [facility] 02-05-2025 09:34-0400 Body temperature 98.49 [degF] Georges Barger PA-C Work Phone: [facility] 02-05-2025 09:34-0400 Body weight 97.07 kg Georges Barger PA-C Work Phone: [facility] 02-05-2025 09:34-0400 Diastolic blood pressure 65 mm[Hg] Georges Barger PA-C Work Phone: [facility] 02-05-2025 09:34-0400 Heart rate 76 /min Georges Barger PA-C Work Phone: [facility] 02-05-2025 09:34-0400 Respiratory rate 16 /min Georges Barger PA-C Work Phone: [facility] 02-05-2025 09:34-0400 SaO2% (BldA) [Mass fraction] 97 % Georges Barger PA-C Work Phone: [facility] 02-05-2025 09:34-0400 Systolic blood pressure 136 mm[Hg] Georges Barger PA-C Work Phone: [facility] 01-15-2025 09:17-0400 Body mass index (BMI) [Ratio] 36.39 kg/m2 Christian Lamport PA-C Work Phone: [facility] 01-15-2025 09:17-0400 Body temperature 97.3 [degF] Christian Lamport PA-C Work Phone: [facility] 01-15-2025 09:17-0400 Body weight 96.16 kg Christian Lamport PA-C Work Phone: [facility] 01-15-2025 09:17-0400 Diastolic blood pressure 80 mm[Hg] Christian Lamport PA-C Work Phone: [facility] 01-15-2025 09:17-0400 Heart rate 72 /min Christian Lamport PA-C Work Phone: [facility] 01-15-2025 09:17-0400 Respiratory rate 16 /min Christian Lamport PA-C Work Phone: [facility] 01-15-2025 09:17-0400 SaO2% (BldA) [Mass fraction] 98 % Christian Lamport PA-C Work Phone: [facility] 01-15-2025 09:17-0400 Systolic blood pressure 133 mm[Hg] Christian Lamport PA-C Work Phone: [facility] 11-26-2024 09:21-0400 Body height 163.8 cm Christopher Bohach DPM Work Phone: [facility] 11-26-2024 09:21-0400 Body mass index (BMI) [Ratio] 35.83 kg/m2 Christopher Bohach DPM Work Phone: [facility] 11-26-2024 09:21-0400 Body weight 96.16 kg Christopher Bohach DPM Work Phone: [facility] 11-26-2024 09:21-0400 Diastolic blood pressure 73 mm[Hg] Christopher Bohach DPM Work Phone: [facility] 11-26-2024 09:21-0400 Heart rate 75 /min Christopher Bohach DPM Work Phone: [facility] 11-26-2024 09:21-0400 Systolic blood pressure 140 mm[Hg] Christopher Bohach DPM Work Phone: [facility] 08-17-2024 13:49-0500 Body height 163.8 cm Christopher Bohach DPM Work Phone: [facility] 08-17-2024 13:49-0500 Body mass index (BMI) [Ratio] 35.83 kg/m2 Christopher Bohach DPM Work Phone: [facility] 08-17-2024 13:49-0500 Body weight 96.16 kg Christopher Bohach DPM Work Phone: [facility] 08-17-2024 13:49-0500 Diastolic blood pressure 75 mm[Hg] Christopher Bohach DPM Work Phone: [facility] 08-17-2024 13:49-0500 Heart rate 70 /min Christopher Bohach DPM Work Phone: [facility] 08-17-2024 13:49-0500 Respiratory rate 18 /min Christopher Bohach DPM Work Phone: [facility] 08-17-2024 13:49-0500 Systolic blood pressure 127 mm[Hg] Lexy Canales DPM Work Phone: [facility] 07-10-2024 06:34-0500 Body height 162.6 cm Lexy Tapia MD [facility] 07-10-2024 06:34-0500 Body mass index (BMI) [Ratio] 36.39 kg/m2 Lexy Tapia MD Work Phone[facility] 07-10-2024 06:34-0500 Body weight 96.16 kg Lexy Tapia MD [facility] Phone[facility] 07-10-2024 06:30-0500 Body temperature 98.29 [degF] Lexy Tapia MD [facility] [employer] 07-10-2024 06:30-0500 Diastolic blood pressure 59 mm[Hg] Lexy Tapia MD [facility] Phone[facility] 07-10-2024 06:30-0500 Heart rate 74 /min Lexy Tapia MD [facility] 07-10-2024 06:30-0500 Respiratory rate 17 /min Lexy Tapia MD [facility] Phone[facility] 07-10-2024 06:30-0500 SaO2% (BldA) [Mass fraction] 98 % Lexy Tapia MD Work Phone: [employer] 07-10-2024 06:30-0500 Systolic blood pressure 133 mm[Hg] eLxy Tapia MD Work Phone[facility] 06-24-2024 18:05-0500 SaO2% (BldA) [Mass fraction] 96 % Monster Mei MD Work Phone: [facility] [employer] 06-24-2024 18:00-0500 Diastolic blood pressure 73 mm[Hg] Monster Mei MD Work Phone: [facility] [employer] 06-24-2024 18:00-0500 Systolic blood pressure 158 mm[Hg] Monster Mei MD Work Phone: [facility] [employer] 06-24-2024 17:25-0500 Body height 162.6 cm Monster Mei MD Work Phone: [facility] [employer] 06-24-2024 17:25-0500 Body mass index (BMI) [Ratio] 36.39 kg/m2 Monster Mei MD Work Phone: [facility] [employer] 06-24-2024 17:25-0500 Body temperature 99.7 [degF] Monster Mei MD Work Phone: [facility] [employer] 06-24-2024 17:25-0500 Body weight 96.16 kg Monster Mei MD Work Phone: [facility] [employer] 06-24-2024 17:25-0500 Heart rate 75 /min Monster Mei MD Work Phone: [facility] [employer] 06-24-2024 17:25-0500 Respiratory rate 19 /min Monster Mei MD Work Phone: [facility] [employer] 11-14-2023 22:17-0400 Diastolic blood pressure 85 mm[Hg] Jessica Farrar MD Work Phone: [facility] [employer] 11-14-2023 22:17-0400 Heart rate 60 /min Jessica Farrar MD Work Phone: [facility] [employer] 11-14-2023 22:17-0400 Respiratory rate 17 /min Jessica Farrar MD Work Phone: [facility] [employer] 11-14-2023 22:17-0400 SaO2% (BldA) [Mass fraction] 96 % Jessica Farrar MD Work Phone: [facility] [employer] 11-14-2023 22:17-0400 Systolic blood pressure 122 mm[Hg] Jessica Farrar MD Work Phone: [facility] [employer] 11-14-2023 18:48-0400 Body temperature 98.01 [degF] Jessica Farrar MD Work Phone: [facility] [employer] 11-14-2023 18:42-0400 Body height 162.6 cm Jessica Farrar MD Work Phone: [facility] [employer] 11-14-2023 18:42-0400 Body mass index (BMI) [Ratio] 37.08 kg/m2 Jessica Farrar MD Work Phone: [facility] [employer] 11-14-2023 18:42-0400 Body weight 97.98 kg Jessica Farrar MD Work Phone: [facility] [employer] 10-23-2023 12:23-0400 Heart rate 79 /min Lexy Tapia MD Work Phone: [facility] [employer] 10-23-2023 12:23-0400 Respiratory rate 16 /min Lexy Tapia MD Work Phone: [facility] [employer] 10-23-2023 12:23-0400 SaO2% (BldA) [Mass fraction] 97 % Lexy Tapia MD Work Phone: [facility] [employer] 10-23-2023 12:13-0400 Diastolic blood pressure 65 mm[Hg] Lexy Tapia MD Work Phone: [facility] [employer] 10-23-2023 12:13-0400 Systolic blood pressure 100 mm[Hg] Lexy Tapia MD Work Phone: [facility] [employer] 10-23-2023 09:46-0400 Body height 160 cm Lexy Tapia MD Work Phone: [facility] [employer] 10-23-2023 09:46-0400 Body mass index (BMI) [Ratio] 38.09 kg/m2 Lexy Tapia MD Work Phone: [facility] 10-23-2023 09:46-0400 Body temperature 98.1 [degF] Lexy Tapia MD Work Phone: [facility] 10-23-2023 09:46-0400 Body weight 97.52 kg Lexy Tapia MD Work Phone: [facility] 09-16-2023 15:15-0400 Diastolic blood pressure 67 mm[Hg] Ricardo [facility] 09-16-2023 15:15-0400 Heart rate 53 /min Ricardo [facility] 09-16-2023 15:15-0400 Respiratory rate 14 /min Ricardo [facility] 09-16-2023 15:15-0400 Systolic blood pressure 148 mm[Hg] Ricardo [facility] 09-16-2023 15:00-0400 Diastolic blood pressure 81 mm[Hg] Ricardo [facility] 09-16-2023 15:00-0400 Heart rate 54 /min Ricardo [facility] 09-16-2023 15:00-0400 Systolic blood pressure 153 mm[Hg] Ricardo [facility] 09-16-2023 14:55-0400 Diastolic blood pressure 89 mm[Hg] Ricardo [facility] 09-16-2023 14:55-0400 Heart rate 60 /min Ricardo [facility] 09-16-2023 14:55-0400 Respiratory rate 20 /min Ricardo [facility] 09-16-2023 14:55-0400 SaO2% (BldA) [Mass fraction] 100 % Ricardo [facility] 09-16-2023 14:55-0400 Systolic blood pressure 135 mm[Hg] Ricardo [facility] 09-16-2023 14:44-0400 Body temperature 96.8 [degF] Ricardo [facility] 09-16-2023 14:35-0400 Respiratory rate 12 /min Ricardo [facility] 09-16-2023 14:25-0400 Respiratory rate 12 /min Ricardo [facility] 09-16-2023 14:15-0400 Respiratory rate 12 /min Ricardo [facility] 09-16-2023 13:14-0400 Blood Pressure Location Ricardo Sar[facility] 09-16-2023 13:14-0400 Body temperature 96.8 [degF] Ricardo [facility] 07-01-2023 15:32-0500 Body height 160 cm Monster Mei MD Work Phone: [facility] [employer] 07-01-2023 15:32-0500 Body mass index (BMI) [Ratio] 36.49 kg/m2 Monster Mei MD Work Phone: [facility] 07-01-2023 15:32-0500 Body temperature 98.91 [degF] Monster Mei MD Work Phone: [facility] 07-01-2023 15:32-0500 Body weight 93.44 kg Monster Mei MD Work Phone: [facility] [employer] 07-01-2023 15:32-0500 Diastolic blood pressure 70 mm[Hg] Monster Mei MD Work Phone: [facility] [employer] 07-01-2023 15:32-0500 Heart rate 80 /min Monster Mei MD Work Phone: [facility] [employer] 07-01-2023 15:32-0500 Respiratory rate 20 /min Monster Mei MD Work Phone: [facility] [employer] 07-01-2023 15:32-0500 SaO2% (BldA) [Mass fraction] 97 % Monster Mei MD Work Phone: [facility] [employer] 07-01-2023 15:32-0500 Systolic blood pressure 138 mm[Hg] Monster Mei MD Work Phone: [facility] [employer] 05-02-2023 08:55-0400 Body height 162.6 cm Grayson Hutchinson Jr., DO Work Phone: [facility] 05-02-2023 08:55-0400 Body mass index (BMI) [Ratio] 36.46 kg/m2 Grayson Hutchinson Jr., DO Work Phone: [facility] 05-02-2023 08:55-0400 Body temperature 97.7 [degF] Grayson Hutchinson Jr., DO Work Phone: [facility] 05-02-2023 08:55-0400 Body weight 96.34 kg Grayson Hutchinson Jr., DO Work Phone: [facility] 05-02-2023 08:55-0400 Diastolic blood pressure 82 mm[Hg] Grayson Hutchinson Jr., DO Work Phone: [facility] 05-02-2023 08:55-0400 Heart rate 72 /min Grayson Hutchinson Jr., DO Work Phone: [facility] 05-02-2023 08:55-0400 Systolic blood pressure 150 mm[Hg] Grayson Hutchinson Jr., DO Work Phone: [facility] 03-19-2023 08:55-0400 Diastolic blood pressure 73 mm[Hg] MD Roni Dahl Work Phone: [facility] 03-19-2023 08:55-0400 Heart rate 63 /min MD Roni Dahl Work Phone: [facility] 03-19-2023 08:55-0400 Respiratory rate 16 /min MD Roni Dahl Work Phone: [facility] 03-19-2023 08:55-0400 SaO2% (BldA) [Mass fraction] 95 % MD Roni Dahl Work Phone: [facility] 03-19-2023 08:55-0400 Systolic blood pressure 141 mm[Hg] MD Roni Dahl Work Phone: [facility] 03-19-2023 08:15-0400 Inhaled oxygen flow rate 3 L/min MD Roni Dahl Work Phone: [facility] 03-19-2023 07:19-0400 Body height 160.02 cm MD Roni Dahl Work Phone: [facility] 03-19-2023 07:19-0400 Body weight 96.61 kg MD Roni Dahl Work Phone: [facility] 03-07-2023 09:20-0400 Body height Mukul Wilson Other [employer] Other 03-07-2023 09:20-0400 Body mass index (BMI) [Ratio] 35.99 kg/m2 Mukul Wilson Other [employer] Other 03-07-2023 09:20-0400 Body weight 96.62 kg Mukul Wilson Other [facility] [employer] Other 03-07-2023 09:20-0400 Diastolic blood pressure 80 mm[Hg] Mukul Wilson Other [address] [facility] [employer] Other 03-07-2023 09:20-0400 Systolic blood pressure 152 mm[Hg] Mukul Wilson Other [facility] [employer] Other 03-01-2023 12:05-0400 Body height 162.56 cm MD Roni Dahl Work Phone: [facility] 03-01-2023 12:05-0400 Body temperature 98.6 [degF] MD Roni Dahl Work Phone: [facility] 03-01-2023 12:05-0400 Body weight 96.61 kg MD Roni Dahl Work Phone: [facility] 03-01-2023 12:05-0400 Diastolic blood pressure 74 mm[Hg] MD Roni Dahl Work Phone: [facility] 03-01-2023 12:05-0400 Heart rate 59 /min MD Roni Dahl Work Phone: [facility] 03-01-2023 12:05-0400 Respiratory rate 20 /min MD Roni Dahl Work Phone: [facility] 03-01-2023 12:05-0400 SaO2% (BldA) [Mass fraction] 96 % MD Roni Dahl Work Phone: [facility] 03-01-2023 12:05-0400 Systolic blood pressure 143 mm[Hg] MD Roni Dahl Work Phone: [facility] 02-28-2023 12:51-0400 Blood Pressure Location Ricardo Kellytimmy [facility] 02-28-2023 12:51-0400 Diastolic blood pressure 92 mm[Hg] Ricardo Sarmini [facility] 02-28-2023 12:51-0400 Heart rate 64 /min Ricardo Sarmini [facility] 02-28-2023 12:51-0400 Respiratory rate 16 /min Ricardo Sarmini [facility] 02-28-2023 12:51-0400 SaO2% (BldA) [Mass fraction] 98 % Ricardo Sarmini [facility] 02-28-2023 12:51-0400 Systolic blood pressure 135 mm[Hg] Ricardo Sarmini [facility] 02-08-2023 14:05-0400 Body temperature 98.1 [degF] Roni Dahl MD Work Phone: [employer] 02-08-2023 14:05-0400 Diastolic blood pressure 63 mm[Hg] Roni Dahl MD Work Phone: [facility] [employer] 02-08-2023 14:05-0400 Heart rate 59 /min Roni Dahl MD Work Phone: [facility] [employer] 02-08-2023 14:05-0400 Respiratory rate 13 /min Roni Dahl MD Work Phone: [employer] 02-08-2023 14:05-0400 SaO2% (BldA) [Mass fraction] 97 % Roni Dahl MD Work Phone: [employer] 02-08-2023 14:05-0400 Systolic blood pressure 143 mm[Hg] Roni Dahl MD Work Phone: [employer] 01-30-2023 15:30-0400 Body temperature 98.7 [degF] Tara Patel Other [employer] Other 01-30-2023 15:30-0400 Body weight 99.79 kg Tara Patel Other [employer] Other 01-30-2023 15:30-0400 Diastolic blood pressure 70 mm[Hg] Tara Patel Other [employer] Other 01-30-2023 15:30-0400 Respiratory rate 20 /min Tara Patel Other [employer] Other 01-30-2023 15:30-0400 SaO2% (BldA) [Mass fraction] 98 % Tara Patel Other [employer] Other 01-30-2023 15:30-0400 Systolic blood pressure 122 mm[Hg] Tara Patel Other [employer] Other 11-25-2022 12:00-0400 Diastolic blood pressure 75 mm[Hg] Salomon Juares MD Work Phone: [facility] [employer] 11-25-2022 12:00-0400 SaO2% (BldA) [Mass fraction] 99 % Salomon Juares MD Work Phone: [facility] [employer] 11-25-2022 12:00-0400 Systolic blood pressure 140 mm[Hg] Salomon Juares MD Work Phone: [facility] [employer] 11-25-2022 10:30-0400 Heart rate 59 /min Salomon Juares MD Work Phone: [facility] [employer] 11-25-2022 10:30-0400 Respiratory rate 18 /min Salomon Juares MD Work Phone: [facility] [employer] 11-25-2022 10:05-0400 Body temperature 97.9 [degF] Salomon Juares MD Work Phone: [facility] 11-25-2022 10:04-0400 Body height 162.6 cm Salomon Juares MD Work Phone: [facility] [employer] 11-25-2022 10:04-0400 Body mass index (BMI) [Ratio] 38.16 kg/m2 Salomon Juares MD Work Phone: [facility] [employer] 11-25-2022 10:04-0400 Body weight 100.83 kg Salomon Juares MD Work Phone: [facility] 08-28-2022 12:58-0500 Blood Pressure Location Donna Spencer [facility] 08-28-2022 12:58-0500 Body temperature 97.34 [degF] Donna Spencer [facility] 08-28-2022 12:58-0500 Diastolic blood pressure 72 mm[Hg] Donna Spencer [facility] 08-28-2022 12:58-0500 Heart rate 69 /min Donna Spencer [facility] 08-28-2022 12:58-0500 Systolic blood pressure 114 mm[Hg] Donna Spencer [facility] 07-26-2022 08:55-0500 Diastolic blood pressure 69 mm[Hg] Ferrari SALAM [facility] 07-26-2022 08:55-0500 Heart rate 54 /min Ferrari SALAM [facility] 07-26-2022 08:55-0500 Mean blood pressure 84 mm[Hg] Ferrari SALAM [facility] 07-26-2022 08:55-0500 Respiratory rate 13 /min Ferrari SALAM [facility] 07-26-2022 08:55-0500 SaO2% (BldA) [Mass fraction] 97 % Ferrari SALAM [facility] 07-26-2022 08:55-0500 Systolic blood pressure 114 mm[Hg] Ferrari SALAM [facility] 07-26-2022 08:35-0500 Diastolic blood pressure 71 mm[Hg] Ferrari SALAM [facility] 07-26-2022 08:35-0500 Heart rate 55 /min Ferrari SALAM [facility] 07-26-2022 08:35-0500 Mean blood pressure 84 mm[Hg] Ferrari SALAM [facility] 07-26-2022 08:35-0500 Respiratory rate 17 /min Ferrari SALAM [facility] 07-26-2022 08:35-0500 SaO2% (BldA) [Mass fraction] 100 % Ferrari SALAM [facility] 07-26-2022 08:35-0500 Systolic blood pressure 111 mm[Hg] Ferrari SALAM [facility] 07-26-2022 08:30-0500 Diastolic blood pressure 72 mm[Hg] Ferrari SALAM [facility] 07-26-2022 08:30-0500 Heart rate 71 /min Ferrari SALAM [facility] 07-26-2022 08:30-0500 Mean blood pressure 92 mm[Hg] Ferrari SALAM [facility] 07-26-2022 08:30-0500 Respiratory rate 21 /min Ferrari SALAM [facility] 07-26-2022 08:30-0500 SaO2% (BldA) [Mass fraction] 99 % Ferrari SALAM [facility] 07-26-2022 08:30-0500 Systolic blood pressure 131 mm[Hg] Ferrari SALAM [facility] 07-26-2022 08:20-0500 Body temperature 97.7 [degF] Ferrari SALAM [facility] 07-26-2022 07:14-0500 Blood Pressure Location Ferrari SALAM [facility] 07-26-2022 07:14-0500 Body temperature 97.16 [degF] Ferrari SAL[facility] 07-17-2022 09:53-0500 Diastolic blood pressure 60 mm[Hg] MD Roni Dahl Work Phone: [facility] 07-17-2022 09:53-0500 Heart rate 60 /min MD Roni Dahl Work Phone: [facility] 07-17-2022 09:53-0500 Respiratory rate 16 /min MD Roni Dahl Work Phone: [facility] 07-17-2022 09:53-0500 SaO2% (BldA) [Mass fraction] 97 % MD Roni Dahl Work Phone: [facility] 07-17-2022 09:53-0500 Systolic blood pressure 120 mm[Hg] MD Roni Dahl Work Phone: [facility] 07-17-2022 09:06-0500 Inhaled oxygen flow rate 3 L/min MD Roni Dahl Work Phone: [facility] 07-17-2022 08:22-0500 Body height 162.56 cm MD Roni Dahl Work Phone: [facility] 07-17-2022 08:22-0500 Body weight 99.79 kg MD Roni Dahl Work Phone: [facility] 07-12-2022 09:28-0500 Body temperature 97.7 [degF] Alma Maier DO Work Phone: [employer] 07-12-2022 09:21-0500 Body height 162.6 cm Alma Daylin DO Work Phone: [employer] 07-12-2022 09:21-0500 Body mass index (BMI) [Ratio] 37.93 kg/m2 Amla Mao DO Work Phone: [employer] 07-12-2022 09:21-0500 Body weight 100.25 kg Alma Daylin DO Work Phone: [employer] 07-12-2022 09:21-0500 Diastolic blood pressure 71 mm[Hg] Alma Mao DO Work Phone: [employer] 07-12-2022 09:21-0500 Heart rate 72 /min Alma Mao DO Work Phone: [employer] 07-12-2022 09:21-0500 Respiratory rate 18 /min Alma Mao DO Work Phone: [employer] 07-12-2022 09:21-0500 SaO2% (BldA) [Mass fraction] 98 % Alma Mao DO Work Phone: [employer] 07-12-2022 09:21-0500 Systolic blood pressure 128 mm[Hg] Alma Mao DO Work Phone: [employer] 07-10-2022 14:16-0500 Blood Pressure Location Donna Spencer [facility] 07-10-2022 14:16-0500 Body temperature 96.8 [degF] Donna Spencer [facility] 07-10-2022 14:16-0500 Diastolic blood pressure 80 mm[Hg] Donna Spencer [facility] 07-10-2022 14:16-0500 Heart rate 64 /min Donna Spencer [facility] 07-10-2022 14:16-0500 Systolic blood pressure 119 mm[Hg] Donna Spencer [facility] 07-03-2022 11:10-0500 Diastolic blood pressure 73 mm[Hg] MD Roni Dahl Work Phone: [facility] 07-03-2022 11:10-0500 Heart rate 56 /min MD Roni Dahl Work Phone: [facility] 07-03-2022 11:10-0500 Respiratory rate 20 /min MD Roni Dahl Work Phone: [facility] 07-03-2022 11:10-0500 SaO2% (BldA) [Mass fraction] 97 % MD Roni Dahl Work Phone: [facility] 07-03-2022 11:10-0500 Systolic blood pressure 136 mm[Hg] MD Roni Dahl Work Phone: [facility] 07-03-2022 10:28-0500 Inhaled oxygen flow rate 3 L/min MD Roni Dahl Work Phone: [facility] 07-03-2022 09:32-0500 Body height 162.56 cm MD Roni Dahl Work Phone: [facility] 07-03-2022 09:32-0500 Body weight 99.79 kg MD Roni Dahl Work Phone: [facility] 05-29-2022 10:13-0500 Diastolic blood pressure 72 mm[Hg] MD Roni Dahl Work Phone: [facility] 05-29-2022 10:13-0500 Heart rate 62 /min MD Roni Dahl Work Phone: [facility] 05-29-2022 10:13-0500 Respiratory rate 20 /min MD Roni Dahl Work Phone: [facility] 05-29-2022 10:13-0500 SaO2% (BldA) [Mass fraction] 97 % MD Roni Dahl Work Phone: [facility] 05-29-2022 10:13-0500 Systolic blood pressure 139 mm[Hg] MD Roni Dahl Work Phone: [facility] 05-29-2022 09:23-0500 Inhaled oxygen flow rate 3 L/min MD Roni Dahl Work Phone: [facility] 05-29-2022 08:38-0500 Body height 162.56 cm MD Roni Dahl Work Phone: [facility] 05-29-2022 08:38-0500 Body weight 100.24 kg MD Roni Dahl Work Phone: [facility] 04-09-2022 11:15-0400 Body weight 101.15 kg Yanelis Garcia Other [employer] 03-27-2022 09:14-0400 Diastolic blood pressure 62 mm[Hg] MD Roni Dahl Work Phone: [facility] 03-27-2022 09:14-0400 Heart rate 57 /min MD Roni Dahl Work Phone: [facility] 03-27-2022 09:14-0400 Respiratory rate 16 /min MD Roni Dahl Work Phone: [facility] 03-27-2022 09:14-0400 SaO2% (BldA) [Mass fraction] 96 % MD Roni Dahl Work Phone: [facility] 03-27-2022 09:14-0400 Systolic blood pressure 121 mm[Hg] MD Roni Dahl Work Phone: [facility] 03-27-2022 08:36-0400 Inhaled oxygen flow rate 3 L/min MD Roni Dahl Work Phone: [facility] 03-27-2022 07:55-0400 Body height 165.1 cm MD Roni Dahl Work Phone: [facility] 03-27-2022 07:55-0400 Body weight 100.24 kg MD Roni Dahl Work Phone: [facility] 10-14-2021 11:07-0400 Body mass index (BMI) [Ratio] 38.77 kg/m2 Lexy Tapia MD Work Phone: [facility] [employer] 10-14-2021 11:07-0400 Body temperature 98.2 [degF] Lexy Tapia MD Work Phone: [facility] [employer] 10-14-2021 11:07-0400 Body weight 105.69 kg Lexy Tapia MD Work Phone: [employer] 10-14-2021 11:07-0400 Diastolic blood pressure 73 mm[Hg] Lexy Tapia MD Work Phone: [employer] 10-14-2021 11:07-0400 Heart rate 67 /min Lexy Tapia MD Work Phone: [employer] 10-14-2021 11:07-0400 Respiratory rate 16 /min Lexy Tapia MD Work Phone: [employer] 10-14-2021 11:07-0400 SaO2% (BldA) [Mass fraction] 98 % Lexy Tapia MD Work Phone: [employer] 10-14-2021 11:07-0400 Systolic blood pressure 147 mm[Hg] Lexy Tapia MD Work Phone: [employer] 11-27-2020 14:00-0400 Respiratory rate 18 /min aDrryl Sandoval MD Work Phone: [employer] Work Phone: 11-27-2020 09:32-0400 SaO2% (BldA) [Mass fraction] 96 % Darryl Sandoval MD Work Phone: [employer] Work Phone: 11-27-2020 09:31-0400 Body temperature 98.1 [degF] Darryl Sandoval MD Work Phone: [employer] Work Phone: 11-27-2020 09:31-0400 Diastolic blood pressure 78 mm[Hg] Darryl Sandoval MD Work Phone: [employer] Work Phone: 11-27-2020 09:31-0400 Heart rate 78 /min Darryl Sandoval MD Work Phone: [employer] Work Phone: 11-27-2020 09:31-0400 Systolic blood pressure 139 mm[Hg] Darryl Sandoval MD Work Phone: [employer] Work Phone: 11-18-2020 09:19-0400 Diastolic blood pressure 57 mm[Hg] Naida Grissom MD Work Phone: [employer] Work Phone: 11-18-2020 09:19-0400 SaO2% (BldA) [Mass fraction] 96 % Naida Grissom MD Work Phone: [employer] Work Phone: 11-18-2020 09:19-0400 Systolic blood pressure 118 mm[Hg] Naida Grissom MD Work Phone: [employer] Work Phone: 11-18-2020 06:45-0400 Body height 165.1 cm Naida Grissom MD Work Phone: [employer] Work Phone: 11-18-2020 06:45-0400 Body mass index (BMI) [Ratio] 37.11 kg/m2 Naida Grissom MD Work Phone: [employer] Work Phone: 11-18-2020 06:45-0400 Body temperature 99.19 [degF] Naida Grissom MD Work Phone: [employer] Work Phone: 11-18-2020 06:45-0400 Body weight 101.15 kg Naida Grissom MD Work Phone: [employer] Work Phone: 11-18-2020 06:45-0400 Heart rate 87 /min Naida Grissom MD Work Phone: [employer] Work Phone: 11-18-2020 06:45-0400 Respiratory rate 18 /min Naida Grissom MD Work Phone: [employer] Work Phone: 03-31-2020 13:48-0400 BMI (Body Mass Index) 38.79 kg/m2 [facility] [place] 03-31-2020 13:48-0400 Body Temperature 98.49 [degF] [facility] [place] 03-31-2020 13:48-0400 Body weight 102.[address] [facility] 03-31-2020 13:48-0400 BP Diastolic 99 mm[Hg] [facility] [place] 03-31-2020 13:48-0400 BP Systolic 130 mm[Hg] [facility] [place] 03-31-2020 13:48-0400 Height 162.6 cm [place], [place] 03-31-2020 13:48-0400 Pulse (Heart Rate) 61 /min [place] [facility], [place] 03-31-2020 13:48-0400 Pulse Oximetry 100 % [place], [place] 03-31-2020 13:48-0400 Respiratory Rate 18 /min [facility] [place] 05-30-2019 06:47-0500 Pulse Oximetry 100 % [facility] [place] 05-30-2019 06:34-0500 BP Diastolic 44 mm[Hg] [facility] [place] 05-30-2019 06:34-0500 BP Systolic 128 mm[Hg] [place], [place] 05-30-2019 06:00-0500 BMI (Body Mass Index) 39.86 kg/m2 [facility], [place] 05-30-2019 06:00-0500 Body Temperature 98.8 [degF] [place] 05-30-2019 06:00-0500 Body weight 102.[address] [facility], [place] 05-30-2019 06:00-0500 Height 160 cm [place] 05-30-2019 06:00-0500 Pulse (Heart Rate) 83 /min [facility], [place] 05-30-2019 06:00-0500 Respiratory Rate 20 /min [place] Encounters Encounter Date Encounter Type Care Provider Facility Start: 02-08-2025 End: 02-08-2025 ambulatory Trevon Harris MD Facility: [facility] Start: 02-05-2025 End: 02-05-2025 Office outpatient visit 15 minutes Georges Barger PA-C Work Phone: [facility] [place] Comment on above: Cough, unspecified t ype (Primary Dx); Sore throat; Nasal congestion Start: 02-05-2025 End: 02-09-2025 ambulatory RONI DAHL [facility] Start: 01-15-2025 End: 01-15-2025 Office outpatient new 30 minutes Christian Lucio PA-C Work Phone: [facility] [place] Comment on above: Bacterial URI (Prima ry Dx); Dermatitis Start: 01-15-2025 End: 01-15-2025 ambulatory CHRISTIAN LUCIO [facility] Start: 12-22-2024 End: 12-22-2024 ambulatory [facility] Start: 12-22-2024 End: 12-22-2024 Subsequent hospital visit by physician Roni Dahl MD Work Phone: [facility] Comment on above: Gross hematuria Start: 11-26-2024 End: 11-26-2024 Bamboo flowsheet Lexy Canales DPM Work Phone: [facility] Start: 11-26-2024 End: 11-26-2024 Bamboo flowsheet Lexy Canales DPM Work Phone: [facility] Start: 11-26-2024 End: 11-26-2024 Office outpatient visit 15 minutes Lexy Canales DPM Work Phone: [facility] Comment on above: Grade 2 ankle sprain (Primary Dx); Ankle instability, right; Right foot drop Start: 11-26-2024 End: 11-26-2024 ambulatory LEXY CANALES Not Available Start: 09-15-2024 End: 09-15-2024 ambulatory LEXY CANALES Not Available Start: 09-10-2024 End: 09-10-2024 Patient encounter procedure Roni Dahl MD Work Phone: [facility] [address] Work Phone: Start: 09-10-2024 End: 09-10-2024 ambulatory Roni Dahl MD Work Phone: [facility] Work Phone: Start: 09-07-2024 End: 09-07-2024 ambulatory Trevon Harris MD Facility:[facility] Start: 08-28-2024 End: [...] by physician Roni Dahl MD Work Phone: [facility] Comment on above: Mixed incontinence u [...] encounter procedure Roni Dahl MD Work Phone: [facility] [address] Work Phone: Start: 08-11-2024 End: 08-11-2024 ambulatory Roni Dahl MD Work Phone: [facility] Work Phone: Start: 07-10-2024 End: 07-10-2024 Emergency department patient visit Lexy Tapia MD Work Phone: [facility] Comment on above: Sprain of right ankl e, unspecified ligament, initial encounter (Primary Dx) Start: 06-24-2024 End: 06-24-2024 Emergency department patient visit Monster Mei MD Work Phone: [facility] Comment on above: COVID-19 virus infec tion (Primary Dx) Start: 06-01-2024 End: 06-01-2024 ambulatory Trevon Harris MD Facility: [facility] Start: 05-18-2024 End: 05-18-2024 ambulatory Trevon Harris MD Facility: [facility] Start: 05-08-2024 End: 05-10-2024 ambulatory RONI DAHL [facility] Start: 05-08-2024 End: 05-10-2024 Subsequent hospital visit by physician [facility] Mammography Room [facility] Mammography Comment on above: Visit for screening mammogram Start: 04-20-2024 End: 04-20-2024 ambulatory Trevon Harris MD Facility: [facility] Start: 04-06-2024 End: 04-06-2024 ambulatory Andpriscilla Harris MD Facility: [facility] Start: 03-23-2024 End: 03-23-2024 ambulatory Trevon Harris MD Facility:[facility] Start: 02-06-2024 End: 02-06-2024 Patient encounter procedure MD Roni Dahl Work Phone: [facility] Work Phone: Start: 02-06-2024 End: 02-06-2024 ambulatory MD Roni Dahl Work Phone: [facility] Work Phone: Start: 12-19-2023 End: 12-19-2023 Patient encounter procedure MD Roni Dahl Work Phone: [facility] [address] Work Phone: Start: 12-19-2023 End: 12-19-2023 ambulatory MD Roni Dahl Work Phone: [facility] Work Phone: Start: 12-12-2023 End: 12-12-2023 ambulatory RONI DAHL [facility] Start: 11-14-2023 End: 11-14-2023 Emergency department patient visit Jessica Farrar MD Work Phone: [facility] Comment on above: Paroxysmal atrial fi brillation (HCC) (Primary Dx) Start: 10-23-2023 End: 10-25-2023 ambulatory REAGAN Dejan RASHEEDANACHOPAN [facility] Start: 10-23-2023 End: 10-23-2023 Emergency department patient visit Lexy Tapia MD Work Phone: [facility] Comment on above: New onset atrial fib rillation (HCC) (Primary Dx); Atrial fibrillation with RVR (HCC); History of chronic kidney disease; Symptoms of dehydration; Fluid level behind tympanic membrane of both ears; Acute pansinusitis, recurrence not specified; Nausea vomiting and diarrhea Start: 10-22-2023 End: 10-24-2023 ambulatory RONI ORELLANADGJOLENE [facility] Start: 10-01-2023 End: 10-01-2023 [facility] Start: 09-19-2023 End: 09-19-2023 ambulatory MD Roni Dahl Work Phone: [facility] Work Phone: Start: 09-19-2023 End: 09-19-2023 Patient encounter procedure MD Roni Dahl Work Phone: [facility] [address] Work Phone: Start: 09-16-2023 End: 09-16-2023 ambulatory Davion Olivares Facility:[facility] Start: 09-16-2023 End: 09-16-2023 Patient encounter procedure [facility] Start: 07-01-2023 End: 07-01-2023 Emergency department patient visit Monster Mei MD Work Phone: [facility] Comment on above: COVID-19 virus infec tion (Primary Dx) Start: 05-27-2023 End: 05-27-2023 ambulatory MD Roni Dahl Work Phone: [facility] Work Phone: Start: 05-27-2023 End: 05-27-2023 Patient encounter procedure MD Roni Dahl Work Phone: [facility] [address] Work Phone: Start: 05-02-2023 End: 05-06-2023 ambulatory MARY SUE [facility] Amb[facility] Start: 05-02-2023 End: 05-02-2023 Clinical Support Mary Sue [facility] Work Phone: [facility] Comment on above: Sensorineural hearin g loss, bilateral (Primary Dx); Hearing loss, unspecified hearing loss type, unspecified laterality Start: 05-02-2023 End: 05-02-2023 Office outpatient new 45 minutes Grayson Hutchinson DO Work Phone: [facility] Comment on above: Bruxism (teeth grind ing) (Primary Dx); Acute suppurative otitis media of left ear without spontaneous rupture of tympanic membrane, recurrence not specified; ROSETTE on CPAP; Hearing loss, unspecified hearing loss type, unspecified laterality Start: 04-11-2023 End: 04-11-2023 ambulatory XU CHRISTINE [facility] Start: 03-28-2023 End: 03-28-2023 ambulatory LANIE PRINCE [facility] Start: 03-19-2023 End: 03-19-2023 Admission to same day surgery center MD Roni Dahl Work Phone: [facility] Work Phone: Start: 03-19-2023 End: 03-19-2023 ambulatory MD Roni Dahl Work Phone: [facility] Work Phone: Start: 03-14-2023 End: 03-14-2023 ambulatory Yanelis Garcia Other [facility] Other Start: 03-14-2023 Office outpatient vi sit 25 minutes Yanelis Garcia [facility] [place] Start: 03-14-2023 Telephone encounter Yanelis Branch [facility] Start: 03-13-2023 End: 03-15-2023 Subsequent hospital visit by physician Yanelis Guzman MD Work Phone: [facility] Ultrasound Comment on above: Renal cyst Start: 03-08-2023 End: 03-08-2023 ambulatory Mukul Wilson Other [facility] Other Start: 03-08-2023 Telephone encounter Mukul Wilson [employer] Start: 03-07-2023 Office outpatient ne w 30 minutes Mukul Wilson [facility] Neurosurgery Start: 03-07-2023 End: 03-07-2023 ambulatory MD Roni Dahl Work Phone: [facility] Work Phone: Start: 03-07-2023 End: 03-07-2023 Patient encounter procedure MD Roni Dahl Work Phone: [facility] [place] Work Phone: Start: 03-01-2023 End: 03-01-2023 Emergency department patient visit MD Roni Dahl Work Phone: [facility] Work Phone: Start: 02-28-2023 End: 02-28-2023 ambulatory Ricardo Talal Sarmini Facility:[facility] Start: 02-28-2023 End: 02-28-2023 Patient encounter procedure Ricardo [facility] Start: 02-27-2023 End: 03-01-2023 Subsequent hospital visit by physician Roni Dahl MD Work Phone: [facility] Radiology Start: 02-25-2023 End: 02-25-2023 ambulatory Yanelis Garcia Other Located [facility] [employer] Other Start: 02-25-2023 Telephone encounter [facility]is [facility] Start: 02-21-2023 End: 02-21-2023 ambulatory MD Roni Dahl Work Phone: [facility] Work Phone: Start: 02-21-2023 End: 02-21-2023 Patient encounter procedure MD Roni Dahl Work Phone: [facility] [place] Work Phone: Start: 02-14-2023 End: 02-14-2023 ambulatory Yanelis Garcia Other [facility] Other Start: 02-14-2023 Telephone encounter Yanelis [facility] [place] Start: 02-08-2023 End: 02-08-2023 Emergency department patient visit Roni Dahl MD Work Phone: [facility] Comment on above: 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, unspecified back pain laterality (Primary Dx) Start: 02-04-2023 End: 02-04-2023 ambulatory Yanelis Garcia Other [facility] Other Start: 02-04-2023 Telephone encounter Yanelis Branch [facility] Start: 01-30-2023 End: 01-30-2023 ambulatory Tara Patel Other [address] [facility] [employer] Other Start: 01-30-2023 Office outpatient vi sit 25 minutes Tara Patel [facility] Start: 11-25-2022 End: 11-25-2022 Emergency department patient visit Salomon Juares MD Work Phone: [facility] Comment on above: Non-recurrent acute suppurative otitis media of left ear without spontaneous rupture of tympanic membrane (Primary Dx); Acute nonintractable headache, unspecified headache type Start: 08-29-2022 End: 08-31-2022 Subsequent hospital visit by physician [facility] Additional Xray At [facility] Radiology Comment on above: Essential hypertensi on; Palpitations; Hypothyroidism, unspecified type; Hyperlipidemia, unspecified hyperlipidemia type; Vitamin D deficiency disease Start: 08-28-2022 End: 08-28-2022 Patient encounter procedure Donna Spencer [facility] Start: 08-21-2022 End: 08-21-2022 ambulatory MD Roni Dahl Work Phone: [facility] Work Phone: Start: 08-21-2022 End: 08-21-2022 Patient encounter procedure MD Roni Dahl Work Phone: [facility] [address] Work Phone: Start: 07-31-2022 End: 07-31-2022 ambulatory Yanelis Garcia Other [facility] Other Start: 07-31-2022 Office outpatient vi sit 15 minutes Yanelis Garcia [facility] [place] Start: 07-31-2022 End: 07-31-2022 Subsequent hospital visit by physician Maria R Malhotra PT [facility] Physical Therapy Comment on above: Arrived Start: 07-26-2022 End: 07-26-2022 Patient encounter procedure Vonda HERNANDEZ [facility] Start: 07-17-2022 (Procedure) Bj Yanelis Garcia [facility] Medical OutPt Start: 07-17-2022 End: 07-17-2022 Admission to same day surgery center MD Roni Dahl Work Phone: [facility] Work Phone: Start: 07-17-2022 End: 07-17-2022 ambulatory MD Roni Dahl Work Phone: [facility] Work Phone: Start: 07-12-2022 End: 07-12-2022 Emergency department patient visit Alma Mao DO Work Phone: [facility] ED Comment on above: Acute pharyngitis, u nspecified etiology (Primary Dx) Start: 07-10-2022 End: 07-10-2022 Patient encounter procedure Donna Spencer [facility] Start: 07-03-2022 (Procedure) Bj Garcia [facility] Medical OutPt Start: 07-03-2022 End: 07-03-2022 Admission to same day surgery center MD Roni Dahl Work Phone: [facility] Work Phone: Start: 07-03-2022 End: 07-03-2022 ambulatory MD Roni Dahl Work Phone: [facility] Work Phone: Start: 06-26-2022 End: 06-26-2022 Patient encounter procedure Donna Spencer [facility] Start: 06-14-2022 End: 06-14-2022 Subsequent hospital visit by physician Maria R Malhotra PT [facility] Physical Therapy Comment on above: Arrived Start: 06-13-2022 End: 06-13-2022 ambulatory Yanelis Garcia Other [facility] Other Start: 06-13-2022 Office outpatient vi sit 25 minutes Yanelis Garcia [facility] [place] Start: 05-29-2022 (Procedure) Short Yanelis Garcia [facility] Out[facility] Start: 05-29-2022 End: 05-29-2022 Admission to same day surgery center MD Roni Dahl Work Phone: [facility] Start: 05-29-2022 End: 05-29-2022 ambulatory MD Roni Dahl Work Phone: [facility] Work Phone: Start: 05-07-2022 End: 05-07-2022 ambulatory MD Roni Dahl Work Phone: [facility] Work Phone: Start: 05-07-2022 End: 05-07-2022 Patient encounter procedure MD Roni Dahl Work Phone: [facility] [address] Start: 05-02-2022 End: 05-02-2022 ambulatory Yanelis Garcia Other [address] [facility] [employer] Other Start: 05-02-2022 Office outpatient vi sit 25 minutes Yanelis Garcia [facility] [place] Start: 04-09-2022 End: 04-09-2022 ambulatory Yanelis Garcia Other [place] [employer] Other Start: 04-09-2022 Office outpatient vi sit 25 minutes Yanelis Garcia [facility] [place] Start: 03-27-2022 End: 03-27-2022 Admission to same day surgery center MD Roni Dahl Work Phone: [facility] Start: 03-14-2022 End: 03-14-2022 Patient encounter procedure MD Roni Dahl Work Phone: [facility] Start: 02-22-2022 End: 02-22-2022 Patient encounter procedure MD Roni Dahl Work Phone: [facility] [address] Start: 01-31-2022 End: 02-02-2022 Subsequent hospital visit by physician Rei Mammography Room [facility] Comment on above: Visit for screening mammogram Start: 12-07-2021 End: 12-07-2021 Patient encounter procedure MD Roni Dahl Work Phone: [facility] Start: 11-30-2021 End: 12-02-2021 Subsequent hospital visit by physician Rei Dig Rad 1 [facility] [employer] [facility] Comment on above: H/O repair of right rotator cuff Start: 11-30-2021 End: 12-02-2021 Subsequent hospital visit by physician Roni Dahl MD Work Phone: [facility] [employer] Radiology Start: 10-30-2021 End: 10-30-2021 Patient encounter procedure Donna Spencer [facility] Start: 10-26-2021 End: 10-26-2021 Patient encounter procedure Roni Dahl MD Work Phone: [facility] Start: 10-26-2021 End: 10-26-2021 Subsequent hospital visit by physician Roni Dahl MD Work Phone: [facility] Comment on above: Women's annual routi ne gynecological examination; Vaginal burning Start: 10-14-2021 End: 10-14-2021 Emergency department patient visit Lexy Tapia MD Work Phone: [facility] ED Comment on above: Acute cystitis [...] visit by physician Rei Additional Xray At [facility] Radiology Comment on above: History of [...] visit by physician Rei [facility] Rad 1 [facility] Radiology Comment on above: Right shoulder pain, unspecified chronicity Start: 04-27-2021 End: 04-29-2021 Subsequent hospital visit by physician [facility] Start: 01-20-2021 End: 01-22-2021 Subsequent hospital visit by physician [facility] Mammography Room [facility] Mammography Comment on above: Screening mammogram, encounter for Start: 01-09-2021 End: 01-09-2021 Subsequent hospital visit by physician Roni Dahl MD Work Phone: [facility] Comment on above: Low hemoglobin Start: 12-09-2020 End: 12-09-2020 Subsequent hospital visit by physician Roni Dahl MD Work Phone: [facility] Comment on above: Low hemoglobin Start: 11-27-2020 End: 11-27-2020 Emergency department patient visit Darryl Sandoval MD Work Phone: [facility] Comment on above: Diarrhea, unspecifie d type (Primary Dx); General weakness; Urinary incontinence, unspecified type Start: 11-22-2020 End: 11-22-2020 Subsequent hospital visit by physician Roni Dahl MD Work Phone: [facility] Comment on above: Diarrhea of presumed infectious origin; Intractable vomiting with nausea, unspecified vomiting type Start: 11-18-2020 End: 11-18-2020 Emergency department patient visit Naida Grissom MD Work Phone: [facility] ED Comment on above: Nausea vomiting [...] visit by physician Breezy Covid Screening Schedule [facility] Covid Screening Comment on above: Acute recurrent pans inusitis; Fever, unspecified fever cause Start: 03-31-2020 End: 03-31-2020 Subsequent hospital visit by physician Roni [facility] Comment on above: Viral illness; Exposure to COVID-19 virus Start: 03-31-2020 End: 03-31-2020 Emergency department patient visit Lexy Tapia Work Phone: [facility] ED Comment on above: General weakness (Pr imary Dx); YANNA (middle ear effusion), bilateral Start: 11-09-2019 End: 11-11-2019 Subsequent hospital visit by physician [facility] Mammography Room [facility] Mammography Comment on above: Visit for screening mammogram Start: 07-07-2019 End: 07-09-2019 Subsequent hospital visit by physician Roni Dahl MD Work Phone: [facility] Comment on above: Essential hypertensi on; Pure hypercholesterolemia; Acquired hypothyroidism; Palpitations; Vitamin D deficiency disease Start: 05-30-2019 End: 05-30-2019 Emergency department patient visit Lexy Tapia Work Phone: [facility] ED Comment on above: Acute recurrent fron venkat sinusitis (Primary Dx); Acute middle ear effusion, bilateral Start: 04-23-2019 End: 04-23-2019 Subsequent hospital visit by physician Roni Dahl MD Work Phone: [facility] Comment on above: Diarrhea of presumed infectious origin Start: 03-10-2018 End: 03-10-2018 Patient encounter ANDREWS FISH [facility] Start: 03-10-2018 End: 03-11-2018 Patient encounter ANDREWS FISH [facility] Start: 06-20-2017 End: 06-21-2017 Ambulatory JAMISON OWENS Facility[facility] Procedures Date Procedure Procedure Detail Performing Clinician Start: 12-22-2024 Urnls dip stick/tablet reagent auto microscopy John Paul Mayfield PRESS OPERATOR - TERMINAL BLOCK ASSEMBLER Work Phone: Start: 08-28-2024 Comprehensive metabolic panel [...] root of lumbar spine using fluoroscopic guidance [employer] Comment on above: LEFT L2-S1 11/17/14 Rt RFA 70% r elief Start: 11-03-2014 Radiofrequency ablation of nerve root of lumbar spine using fluoroscopic guidance [employer] Comment on above: RIGHT L2-S1 Start: 10-20-2014 Injection of facet joint using fluoroscopic guidance [employer] Comment on above: BILATERAL L3-S1 LUMBAR FACET Start: 08-11-2014 Local anesthetic facet joint nerve block [employer] Comment on above: Bilateral L3-S1 Start: 03-19-2014 Injection of sacroiliac joint using fluoroscopic guidance [employer] Comment on above: Bilateral SIJI Start: 03-23-2013 Injection of sacroiliac joint using fluoroscopic guidance [employer] Comment on above: Bilateral SIJI Start: 11-17-2012 Injection of sacroiliac joint using fluoroscopic guidance [employer] Comment on above: Left SIJI Start: 10-13-2012 Injection of sacroiliac joint using fluoroscopic guidance [employer] Comment on above: Right SIJI Start: 04-30-2012 Endoscopic examination of esophagus, stomach and duodenum [employer] Start: 11-16-2011 Epidural injection of lumbar spine using fluoroscopic guidance [employer] Comment on above: Left L5-S1 Start: 10-05-2011 Epidural injection of lumbar spine using fluoroscopic guidance [employer] Comment on above: Left L5-S1 Start: 08-27-2011 [...] vaccine (2 - Td or Tdap) [facility] Start: 01-18-2026 Colon cancer screen colonoscopy Colon cancer screen colonoscopy [place], [place] Start: 01-18-2026 Screening for malignant neoplasm of colon Colon cancer screen colonoscopy [place], [place] Start: 12-23-2025 End: 12-23-2025 Patient encounter procedure 12/23/2025 8:30 AM EDT Office Visit [facility] Part of [address] [place] [address] John Paul Mayfield, PRESS OPERATOR - TERMINAL BLOCK ASSEMBLER [address] [place] [address] [address] [place] [address] 1Y f/u [facility] Comment on above: 1Y f/u Start: 08-28-2025 Lipid panel Lipids [facility] Start: 08-20-2025 Depression Monitoring Depression Monitoring [facility] Start: 05-08-2025 Screening for malignant neoplasm of breast Mammogram [facility] Start: 03-17-2025 End: 03-17-2025 Patient encounter procedure 03/17/2025 9:00 AM EDT Office Visit [facility] Military Pay Technician [address] [place] [address] Reagan Pascal MD [address] [place] [address] [facility] [employer] Techn[employer] Start: 03-01-2025 Influenza vaccination Influenza Vaccine (#1) [facility] Start: 02-17-2025 End: 02-17-2025 Patient encounter procedure 02/17/2025 9:20 AM EDT Office Visit [facility] [address] [place] [id number] Roni Dahl MD [address] [place] [address] 6 mos - HTN, Hyperlipidemia, Hypothyroid, gerd, dysthymia [facility] Comment on above: 6 mos - HTN, Hyperlipidemia, Hypothyroid , gerd, dysthymia Start: 11-26-2024 End: 11-26-2024 Patient encounter procedure 11/26/2024 9:30 AM EDT Office Visit [facility] [address] [place] [phone] Lexy Canales DPM [address] [place] [address] Arrived [facility] Comment on above: Arrived Start: 11-17-2024 End: 11-17-2024 Patient encounter procedure [facility] Comment on above: 1 year f/u, US prior-(make sure we have results, patient will be going out of town) 1 year f/u for blood in the urine, no testing prior per John Paul Start: 09-15-2024 End: 09-15-2024 Patient encounter procedure 09/15/2024 2:15 PM EDT Office Visit [facility] [address] [place] [phone] Lexy Canales DPM [address] [place] [address] [facility] Start: 08-31-2024 End: 08-31-2024 Patient encounter procedure 08/31/2024 9:00 AM EST Office Visit [facility] Military Pay Technician [address] [place] [phone] Reagan Pascal MD [address] [place] [address] 1 year follow up labs ekg cxr [facility] Military Pay Technician Comment on above: 1 year follow up labs ekg cxr Start: 08-20-2024 Lipid panel Lipids [facility] Start: 08-17-2024 End: 08-17-2024 Patient encounter procedure 08/17/2024 2:00 PM EST Office Visit [facility] [address] [place] [phone] Lexy Canales DPM [address] [place] [address] Arrived [facility] Comment on above: Arrived Start: 08-13-2024 End: 08-13-2024 Patient encounter procedure 08/13/2024 10:00 AM EST Office Visit [facility] [address] [place] [phone] Roni Dahl MD [address] [place] [address] AWV - 6 mos - HTN, Hyperlipidemia, Hypothyroid, gerd, afib [facility] Comment on above: AWV - 6 mos - HTN, Hyperlipidemia, Hypot hyroid, gerd, afib Start: 08-11-2024 Hemolytic complement CH50 level [facility] Start: 08-06-2024 Depression Monitoring Depression Monitoring [facility] Start: 05-07-2024 End: 05-07-2024 Patient encounter procedure 05/07/2024 9:30 AM EST Office Visit [facility] [address] [place] [address] Grayson Hutchinson Jr., DO [address] [place] [address] [facility] Start: 05-06-2024 Annual Wellness Visit (Medicare) Annual Wellness Visit (Medicare) [facility] [employer] [place] Start: 05-06-2024 Depression Monitoring Depression Monitoring [facility] [employer] [place] Start: 05-06-2024 Medicare Wellness Visit Medicare Wellness Visit [facility] Start: 03-23-2024 End: 03-23-2024 Patient encounter procedure 03/23/2024 11:00 AM EDT Office Visit [facility] [address] [place] [phone] John Paul Mayfield, PRESS OPERATOR - TERMINAL BLOCK ASSEMBLER [address] [place] [address] Dr Romo [address] [place] [id number] 1 year f/u, [place] prior [facility] Comment on above: 1 year f/u, [place] prior Start: 03-20-2024 End: 03-20-2024 Patient encounter procedure 03/20/2024 11:00 AM EDT Office Visit [facility] [address] [place] [phone] John Paul Mayfield, PRESS OPERATOR - TERMINAL BLOCK ASSEMBLER [address] [place] [address] Dr [address]o [address] [place] [phone] 1 year f/u, [place] prior-(make sure we have results, patient will be going out of town) [facility] Comment on above: 1 year f/u, [place] prior-(make sure we have results, patient will be going out of town) Start: 03-18-2024 End: 03-18-2024 Patient encounter procedure 03/18/2024 1:00 PM EDT Appointment [facility] [address] [phone] epic/ sched w/ Anastasiya in office [facility] Comment on above: epic/ sched w/ Anastasiya in office Start: 03-01-2024 COVID-19 Vaccine () COVID-19 Vaccine ( season) [facility] Start: 03-01-2024 COVID-19 Vaccine ( season) COVID-19 Vaccine () [facility] Start: 02-11-2024 End: 02-11-2024 Patient encounter procedure 02/11/2024 8:00 AM EDT Office Visit [facility] [address] [place] [phone] Roni Dahl MD [address] [place] [address] Appt Reason: Routine Existing Condition Follow Up [facility] Comment on above: Appt Reason: Routine Existing Condition Follow Up Start: 02-06-2024 Dual energy X-ray absorptiometry XR dexa axial skeleton [facility] Start: 02-06-2024 DXA Skeletal system.axial Views for bone density [facility] Start: 12-31-2023 Tetanus vaccination Tetanus: Every 10yrs [facility] Start: 12-19-2023 Hemolytic complement CH50 level [facility] Start: 12-12-2023 End: 12-12-2023 Patient encounter procedure 12/12/2023 10:00 AM EDT Office Visit [facility] Military Pay Technician [address] [place] [phone] Reagan Pascal MD [address] [place] [address] 3 wk f/u ED tachycardia & event monitor [facility] [employer] Comment on above: 3 wk f/u ED tachycardia & event monitor Start: 11-14-2023 End: 11-14-2023 Patient encounter procedure 11/14/2023 10:45 AM EDT Procedure visit [facility] [address] [facility] 2nd [place] [address] Glory Peña, PA-C [address] urogram [facility] Comment on above: cysto after CT urogram Start: 11-01-2023 Depression Monitoring Depression Monitoring [facility] Start: 09-19-2023 Hemolytic complement CH50 [facility] Start: 09-02-2023 End: 09-02-2023 Patient encounter procedure [facility] [employer] Comment on above: 1 yr f/u lab/ekg/ Start: 08-21-2023 Lipid panel Lipids [facility] Start: 08-06-2023 End: 08-06-2023 Patient encounter procedure 08/06/2023 8:40 AM EST Office Visit [facility] [address] [place] [phone] Roni Dahl MD [address] [place] [address] 3 mos - Hyperlipidemia, depression, Hypothyroid, gerd, insomnia, sleep apnea, arthritis [facility] Comment on above: 3 mos - Hyperlipidemia, depression, Hypo thyroid, gerd, insomnia, sleep apnea, arthritis Start: 05-27-2023 Hemolytic complement CH50 [facility] Start: 05-09-2023 End: 05-09-2023 Patient encounter procedure 05/09/2023 11:[address] [facility] [address] [place] [address] SELF REF/PT [facility] Comment on above: SELF REF/PT Start: 05-06-2023 End: 05-06-2023 [facility] Comment on above: Return in about 6 months (around 05/03/20) for Hyperlipidemia, Hypothyroid, depression, gerd, arthritis and MEDICARE wellness Start: 05-04-2023 Annual Wellness Visit (AWV) Annual Wellness Visit (AWV) [facility] Start: 05-03-2023 Depression Monitoring Depression Monitoring [facility] Start: 05-03-2023 History and physical examination, annual for health maintenance Wellness Visit [facility] Start: 03-22-2023 End: 03-22-2023 Patient encounter procedure [facility] Comment on above: 3 month f/u, [place] results Start: 03-20-2023 End: 03-20-2023 Patient encounter procedure 03/20/2023 Office Visit [facility] Start: 03-19-2023 [facility] Start: 03-13-2023 End: 03-13-2023 Patient encounter procedure 03/13/2023 Appointment Radiology Yanelis Guzman MD [address] [facility], [address] [place] [phone] [facility] Start: 03-01-2023 COVID-19 Vaccine ( season) COVID-19 Vaccine ( season) [facility] Start: 03-01-2023 Influenza vaccination Sequential Influenza Vaccine (#1) [facility] Start: 01-29-2023 Influenza vaccination Flu vaccine (#1) [facility] Start: 12-21-2022 End: 12-21-2022 Patient encounter procedure 12/21/2022 Office Visit [facility] Start: 10-31-2022 End: 10-31-2022 Patient encounter procedure 10/31/2022 Office Visit Family Medicine Roni Dahl MD [address] [place] [address] [facility] Start: 09-05-2022 COVID-19 Vaccine (5 - Moderna series) COVID-19 Vaccine (5 - Moderna series) [facility] Start: 09-03-2022 End: 09-03-2022 Patient encounter procedure [facility] [employer] Start: 08-29-2022 Lipid panel [facility] Start: 08-29-2022 Thyroid stimulating hormone measurement [facility] Start: 08-21-2022 Bacteria identified in Urine by Culture [facility] Start: 08-21-2022 Hemolytic complement CH50 level [facility] Start: 07-31-2022 End: 07-31-2022 Patient encounter procedure 07/31/2022 Appointment Physical Therapy Maria R Malhotra, PT [facility] Start: 07-17-2022 [facility] Start: 07-03-2022 [facility] Start: 07-03-2022 Radiofrequency destruction of peripheral nerve DH Nerve Radio Frequency (Left) [facility] Start: 05-29-2022 [facility] Start: 05-03-2022 Annual Wellness Visit (AWV) Annual Wellness Visit (AWV) [facility] Start: 05-03-2022 End: 05-03-2022 Patient encounter procedure 05/03/2022 Office Visit Family Medicine Roni Dahl MD [address] [place] [address] [facility] Start: 05-02-2022 Depression Monitoring Depression Monitoring [facility] Start: 03-27-2022 [facility] Start: 03-01-2022 Influenza vaccination Flu vaccine (#1) [facility] Start: 10-31-2021 End: 10-31-2021 Patient encounter procedure 10/31/2021 Appointment Physical Therapy Zo Chen, PT [address] [place] [address] [facility] Therapy Start: 10-26-2021 COVID-19 Vaccine (4 - Booster for Moderna series) COVID-19 Vaccine (4 - Booster for Moderna series) [facility] Start: 10-11-2021 End: 10-11-2021 Patient encounter procedure 10/11/2021 Appointment Physical Therapy Zo Chen, PT [address] [place] [address] [facility] Start: 10-09-2021 End: 10-09-2021 Patient encounter procedure 10/09/2021 Appointment Physical Therapy Velasquez Martel PTA [facility] Start: 10-04-2021 End: 10-04-2021 Patient encounter procedure 10/04/2021 Appointment Physical Therapy Zo Chen, PT [address] [place] [address] [facility] Start: 10-02-2021 End: 10-02-2021 [...] Zo Chen, PT [address] [place] [address] [facility] Start: 09-15-2021 End: 09-15-2021 Patient encounter procedure 09/15/2021 Appointment Physical Therapy Velasquez Martel PTA [facility] Start: 09-13-2021 End: 09-13-2021 Patient encounter procedure 09/13/2021 Appointment Physical Therapy Martel, Velasquez, LABEL PRINTING MACHINIST [facility] Start: 09-08-2021 End: 09-08-2021 Patient encounter procedure 09/08/2021 Appointment Physical Therapy Zo Chen, PT [address] [place] [address] [facility] Start: 09-07-2021 Subsequent hospital visit by physician 09/07/2021 Hospital Encounter Physical Therapy Nancy Nunez [facility] Start: 09-05-2021 End: 09-05-2021 Patient encounter procedure 09/05/2021 Appointment Physical Therapy Velasquez Martel LABEL PRINTING MACHINIST [facility] Start: 09-04-2021 End: 09-04-2021 Patient encounter procedure [facility] Start: 08-31-2021 End: 08-31-2021 Patient encounter procedure 08/31/2021 Appointment Physical Therapy Velasquez Martel PTA [facility] Start: 08-17-2021 Subsequent hospital visit by physician 08/17/2021 Hospital Encounter Physical Therapy Zo Chen, PT [address] [place] [address] [facility] Start: 08-11-2021 Lipid panel Lipid screen [facility] Start: 08-11-2021 Thyroid stimulating hormone measurement TSH testing [facility] Start: 08-11-2021 TSH Qn TSH testing [facility] Work Phone: Start: 08-02-2021 End: 08-02-2021 Patient encounter procedure [facility] Start: 06-29-2021 End: 06-29-2021 Patient encounter procedure 06/29/2021 Appointment Physical Therapy Zo Chen, PT [address] [place] [address] [facility] Start: 06-26-2021 End: 06-26-2021 Patient encounter procedure 06/26/2021 Appointment Physical Therapy Zo Chen, PT [address] [place] [address] [facility] Start: 06-22-2021 End: 06-22-2021 Patient encounter procedure 06/22/2021 Appointment Physical Therapy Zo Chen, PT [address] [place] [address] [facility] Start: 06-20-2021 End: 06-20-2021 Patient encounter procedure 06/20/2021 Appointment Physical Therapy Zo Chen, PT [address] [place] [address] [facility] Start: 06-14-2021 End: 06-14-2021 Patient encounter procedure 06/14/2021 Appointment Physical Therapy Zo Chen, PT [address] [place] [address] [facility] Start: 05-17-2021 End: 05-17-2021 [...] Zo Chen, PT [address] [place] [address] [phone] [facility] Start: 05-02-2021 End: 05-02-2021 Patient encounter procedure 05/02/2021 Office Visit Family Medicine Roni Dahl MD [address] [facility] [place] [address] [phone] [facility] Start: 05-02-2021 End: 05-02-2021 Patient encounter procedure 05/02/2021 Appointment Physical Therapy Rashmi Garcia [facility] Start: 04-21-2021 Annual Wellness Visit (AWV) Annual Wellness Visit (AWV) [place], [place] Start: 03-31-2021 TSH Qn TSH testing [place] Start: 03-01-2021 Influenza vaccination Flu vaccine (#1) [facility] Phone: Start: 02-23-2021 COVID-19 Vaccine (3 - Booster for Moderna series) COVID-19 Vaccine (3 - Booster for Moderna series) [facility] Start: 01-30-2021 End: 01-30-2021 Office Visit 01/30/2021 Office Visit Family Medicine Roni Dahl MD [address] [place] [address] [phone] [facility] Start: 01-18-2021 Screening for malignant neoplasm of colon Colon cancer screen colonoscopy [place], [place] Start: 09-06-2020 End: 09-06-2020 Office Visit 09/06/2020 Office Visit Cardiology Reagan Pascal MD [address] [place] [address] [facility] [employer] Start: 07-28-2020 End: 07-28-2020 Office Visit [facility] Start: 07-11-2020 End: 07-11-2020 Office Visit 07/11/2020 Office Visit Cardiology Reagan Pascal MD [address] [place] [address] [facility] [employer] Start: 07-07-2020 Lipid panel Lipid [place] Start: 07-07-2020 Lipid screen Lipid screen [facility] Phone: Start: 07-07-2020 TSH Qn TSH testing [place] Start: 07-07-2020 TSH testing TSH testing [facility] Phone: Start: 05-10-2020 Shingles Vaccine (3 of 3) Shingles Vaccine (3 of 3) [place], [place] Start: 04-14-2020 Annual Wellness Visit (AWV) Annual Wellness Visit (AWV) [place] Start: 04-13-2020 Annual Wellness Visit (AWV) Annual Wellness Visit (AWV) [place] Start: 03-13-2020 Breast cancer screen Breast cancer screen [place] Start: 03-13-2020 Screening for malignant neoplasm of breast Breast cancer screen [place] Start: 01-25-2020 End: 01-25-2020 Office Visit 01/25/2020 Office Visit Family Roni Villegas MD [address] [place] [address] [phone] [facility] Start: 12-19-2019 Respiratory Syncytial Virus Immunization: Risk, 60-74 Risk, or 75+ (1 - 1-dose 75+ series) Respiratory Syncytial Virus Immunization: Risk, 60-74 Risk, or 75+ (1 - 1-dose 75+ series) [facility] Start: 07-30-2019 End: 07-30-2019 Office Visit 07/30/2019 Office Visit Family Roni Villegas MD [address] [place] [address] [phone] [facility] Start: 07-27-2019 End: 07-27-2019 Patient encounter procedure 07/27/2019 Office Visit Family Roni Villegas MD [address] [place] [address] [phone] [facility] Start: 07-13-2019 End: 07-13-2019 Office Visit 07/13/2019 Office Visit Cardiology Reagan Pascal MD [address] [place] [address] [phone] [facility] [employer] Start: 07-09-2019 Lipid screen Lipid [place] Start: 07-09-2019 TSH testing T[place] Start: 12-31-2013 DTaP/Tdap/Td vaccine (1 - Tdap) DTaP/Tdap/Td vaccine (1 - Tdap) [facility] Start: 12-19-2011 Shingles Vaccine (2 of 3) Shingles Vaccine (2 of 3) [place] Start: 2009 Fall risk assessment Falls Risk Assessment [facility] Start: 2004 Respiratory Syncytial Virus (RSV) or age 60 yrs+ (1 - 1-dose 60+ series) Respiratory Syncytial Virus (RSV) or age 60 yrs+ (1 - 1-dose 60+ series) [facility] Start: 1984 Screening for malignant neoplasm of breast Mammogram [facility] Start: 12-19-1963 DTaP/Tdap/Td vaccine (1 - Tdap) DTaP/Tdap/Td vaccine (1 - Tdap) [place] Start: 1962 Hepatitis C screening [facility] Start: 1960 COVID-19 Vaccine (1 of 2) COVID-19 Vaccine (1 of 2) [place], [place] Start: 1956 Depression screening using PHQ-9 (Patient Health Questionnaire 9) score [facility] Start: 12-19-1955 DTaP/Tdap/Td vaccine (1 - Tdap) DTaP/Tdap/Td vaccine (1 - Tdap) [place] Start: 1944 Hepatitis C screen Hepatitis C screen [place] Start: 1944 Hepatitis C screening Hepatitis C screen [facility] Start: 1944 Screening for osteoporosis Dexa Scan [facility] Complement C3 [Mass/volume] in Serum or Plasma [facility] Complement C3 [Mass/volume] in Serum or Plasma [facility] Complement C3 [Mass/volume] in Serum or Plasma [facility] Complement C3 [Mass/volume] in Serum or Plasma [facility] Complement C3 [Mass/volume] in Serum or Plasma [facility] Complement C4 [Mass/volume] in Serum or Plasma [facility] Complement C4 [Mass/volume] in Serum or Plasma [facility] Complement C4 [Mass/volume] in Serum or Plasma [facility] Complement C4 [Mass/volume] in Serum or Plasma [facility] Complement C4 [Mass/volume] in Serum or Plasma [facility] End: 06-29-2020 COVID-19 COVID-19 Lab Routine Once for 1 Occurrences starting 06/29/2020 until 06/29/2020 [facility] [place] Comment on above: Once for 1 Occurrences starting 06/29/20 20 until 06/29/2020 COVID-19 COVID-19 Lab Rou dane 06/29/2020 11:25 AM EST [place] End: 06-12-2021 COVID-19 [employer] Phone: Comment on above: 1 Occurrences starting 06/12/2021 until 06/12/2021 End: 03-31-2020 Covid-19 Ambulatory Covid-19 Ambulatory Lab Routine Viral illness Exposure to COVID-19 virus 1 Occurrences starting 03/31/2020 until 03/31/2020 [place] Comment on above: 1 Occurrences starting 03/31/2020 until 03/31/2020 Covid-19 Ambulatory Covid-19 Amb ulatory Lab Routine Viral illness Exposure to COVID-19 virus 03/31/2020 1:26 PM EDT [place], [place] CT Head WO Contrast CT Head WO C ontrast Imaging STAT 11/25/2022 10:53 AM EDT [facility] [employer] Phone: CT SINUS WO CONTRAST CT SINUS WO CONTRAST Imaging STAT 11/25/2022 10:55 AM EDT [facility] [employer] Phone: End: 10-26-2021 Culture, Genital [employer] Phone: Comment on above: 1 Occurrences starting 10/26/2021 until 10/26/2021 End: 11-18-2020 Culture, Urine Culture, Urine Microbiology Routine Once for 1 Occurrences starting 11/18/2020 until 11/18/2020 [employer] Phone: Comment on above: Once for 1 Occurrences starting 11/19/19 21 until 11/18/2020 Culture, Urine Culture, Urine Microbiology Routine 11/18/2020 8:31 AM EDT [employer] Phone: End: 10-14-2021 Culture, Urine [employer] Phone: Comment on above: Once for 1 Occurrences starting 10/15/19 until 10/14/2021 End: 08-27-2024 Culture, Urine [employer] Comment on above: 1 Occurrences starting 08/27/2024 until 08/27/2024 End: 10-26-2021 Cytopathology procedure, preparation of smear, genital source PAP SMEAR Lab Routine Women's annual routine gynecological examination 1 Occurrences starting 10/26/2021 until 10/26/2021 [employer] Phone: Comment on above: 1 Occurrences starting 10/26/2021 until 10/26/2021 End: 05-08-2024 DBT Breast - bilateral screening [employer] Comment on above: 1 Occurrences starting 05/08/2024 until 05/08/2024 EKG 12 Lead [employer] Phone: EKG 12 Lead EKG 12 Lead ECG Routine Essential hypertension Palpitations Hypothyroidism, unspecified type Hyperlipidemia, unspecified hyperlipidemia type Vitamin D deficiency disease 08/29/2021 7:22 AM EST [employer] Phone: EKG 12 Lead EKG 12 Lead ECG STAT 10/23/2023 9:56 AM EDT [employer] EKG 12 Lead EKG 12 Lead ECG STAT 10/23/2023 12:15 PM EDT [employer] EKG 12 Lead EKG 12 Lead ECG Routine 11/14/2023 6:42 PM EDT [employer] EKG 12 Lead EKG 12 Lead ECG Routine Essential hypertension Palpitations Hyperlipidemia, unspecified hyperlipidemia type Hypothyroidism, unspecified type Vitamin D deficiency disease 08/27/2024 10:48 AM EST [employer] End: 11-27-2020 Gastrointestinal Panel, Molecular Gastrointestinal Panel, Molecular Microbiology Routine One Time for 1 Occurrences starting 11/27/2020 until 11/27/2020 [employer] Phone: Comment on above: One Time for 1 Occurrences starting 10/31 until 11/27/2020 Gastrointestinal [place], Molecular Gastrointestinal Panel, Molecular Microbiology STAT 11/27/2020 11:00 AM EDT [employer] Phone: End: 11-09-2019 ANA DIGITAL SCREEN W OR WO CAD BILATERAL ANA DIGITAL SCREEN W OR WO CAD BILATERAL Imaging Routine Visit for screening mammogram 1 Occurrences starting 11/09/2019 until 11/09/2019 [facility] on above: 1 Occurrences starting 11/09/2019 until 11/09/2019 ANA DIGITAL SCREEN W OR WO CAD BILATERAL ANA DIGITAL SCREEN W OR WO CAD BILATERAL Imaging Routine Visit for screening mammogram 11/09/2019 11:37 AM EDT [facility] End: 01-20-2021 ANA WU DIGITAL SCREEN BILATERAL ANA WU DIGITAL SCREEN BILATERAL Imaging Routine Screening mammogram, encounter for 1 Occurrences starting 01/20/2021 until 01/20/2021 [employer] Work Phone: Comment on above: 1 Occurrences starting 01/20/2021 until 01/20/2021 ANA WU DIGITAL SCR EEN BILATERAL ANA WU DIGITAL SCREEN BILATERAL Imaging Routine Screening mammogram, encounter for 01/20/2021 8:26 AM ED [employer] Work Phone: Patient Education [facility] Work Phone: Patient referral [facility] Work Phone: End: 08-27-2024 XR Chest 2 Views [facility] Comment on above: 1 Occurrences starting 08/27/2024 until 08/27/2024 XR CHEST STANDARD (2 VW) XR CHES T STANDARD (2 VW) Imaging STAT 05/30/2019 6:19 AM EST [facility] Immunizations Immunization Date Immunization Notes Care Provider Sierra paredes 03-31-2024 Seasonal trivalent influenza vaccine, adjuvanted, preservative free [facility] Room [facility] 03-31-2024 influenza virus vaccine, unspecified formulation Christian Lucio PA-C Work Phone: [facility] 05-06-2023 Influenza, FLUAD, (a ge 65 y+), Adjuvanted, 0.5mL Veselin Sigifredo MD Work Phone: [facility] [employer] [place] 05-08-2022 SARS-CoV-2 (COVID-19 ) [id number] Donnabaylee JangJohanna [facility] 05-03-2022 influenza virus vaccine, unspecified formulation Donna Johanna [facility] Comment on above: Result Comment: 2021: VIS DATE: 02/03/2021 05-03-2022 Influenza, FLUAD, (a ge 65 y+), Adjuvanted, 0.5mL Maria R Malhotra PT [facility] Work Phone: 06-27-2021 COVID-19, Moderna, Booster, PF, 50mcg/0.25ml Mwh [facility] [place] Work Phone: 05-02-2021 Influenza, Quadv, adjuvanted, 65 yrs +, IM, PF (Fluad) Rashmi Garcia [facility] 08-26-2020 COVID-19, Moderna, Primary or Immunocompromised, PF, 100mcg/0.5mL Mwh 1 [employer] Work Phone: 07-29-2020 COVID-19, Moderna, Primary or Immunocompromised, PF, 100mcg/0.5mL Mwh 1 [facility] [place] Work Phone: 05-12-2020 zoster vaccine recombinant [facility] [place] 03-15-2020 influenza virus vaccine, unspecified formulation Maria R Malhotra PT [facility] Work Phone: 03-15-2020 Influenza, High-dose , Quadv, 65 yrs +, IM (Fluzone) [facility] [place] 03-15-2020 influenza, injectabl e, quadrivalent, preservative free [facility] 03-15-[address] [facility], [place] 04-14-2019 influenza virus vaccine, unspecified formulation Donna Doverz [facility] Comment on above: Result Comment: 2021: VIS DATE: 02/12/2019 04-14-2019 influenza, injectabl e, quadrivalent, preservative free [facility] [place] 04-07-2018 influenza virus vaccine, unspecified formulation Donna Jangmetz [facility] Comment on above: Result Comment: 2021: VIS DATE: 02/04/2015 04-07-2018 influenza, injectabl e, quadrivalent, preservative free [facility], [place] 04-10-2017 influenza virus vaccine, unspecified formulation [facility] 05-14-2016 influenza, high dose seasonal, preservative-free [facility] 03-01-2016 pneumococcal conjuga te vaccine, 13 valent [facility] 04-12-2015 influenza virus vaccine, unspecified formulation [facility] 04-24-2014 influenza virus vaccine, unspecified formulation [facility] 04-24-2014 influenza, whole Donna curry [facility] 12-30-2013 Td, unspecified formulation [facility] 12-30-2013 tetanus and diphther ia toxoids, adsorbed, preservative free, for adult use (2 Lf of tetanus toxoid and 2 Lf of diphtheria toxoid) Donna Spencer [facility] 12-30-2013 tetanus and diphther ia toxoids, adsorbed, preservative free, for adult use (5 Lf of tetanus toxoid and 2 Lf of diphtheria toxoid) Monster Mei MD Work Phone: [facility] 07-17-2013 influenza virus vaccine, unspecified formulation [facility] 07-17-2013 influenza, whole Donnabaylee Jangannette etz [facility] 10-24-2011 zoster vaccine, live [facility] [place], [place] 03-31-2011 pneumococcal polysaccharide vaccine, 23 valent Lexy Tapia [facility], [place] Payers Date Payer Category Payer Self-pay [id number] 2023 Managed Care HMO (unspecified) [employer]ETNA [id number]. [id number] 2022 Private Health Insurance 1.2 .840.356504.1.13.385. 2.7.3.201863.315 2020 Private Health Insurance CLI [id number] 1.2.840.175680.1.13.239. 2.7.3.461731.315 2020 Private Health Insurance CLI [id number] 1.2.840.579482.1.13.239. 2.7.3.820728.315 2014 Medicare MEDICARE MEDICAR E PART A AND B xxxxxxxxxxx 2014-Present [phone] [place] [address] xxxxxxxxxxx 1.2.840.129265.1.13.239. 2.7.3.268499.315 2014 Unknown DUSTIN CHAN TAIWANESE xxxxxxxxxx 2014-Present [phone] [address] [place] [address] xxxxxxxxxx 1.2.840.802230.1.13.239. 2.7.3.175912.315 2014 Unknown [id number] 1.2.840.511388.1.13.239. 2.7.3.375831.315 2009 Medicare 1.2.840.461666. 1.13.385. 2.7.3.682451.315 2009 Medicare [id number] 1.2.840.804066.1.13.239. 2.7.3.694805.315 1944 Unknown [id number] 2.16.840.1.921517.3.579. 2.903 1944 Unknown [id number] 2.16.840.1.758002.3.579. 2.903 1944 Unknown [id number] 2.16.840.1.944852.3.579. 2.727 1944 Unknown [id number] 2.16.840.1.753403.3.579. 2.727 1944 Unknown [id number] 2.16.840.1.830634.3.579. 2.174 1944 Unknown [id number] 2.16.840.1.621946.3.579. 2.174 1944 Unknown [id number] 2.16.840.1.337067.3.579. 2.174 1944 Unknown [id number] 2.16.840.1.584088.3.579. 2.174 1944 Unknown [id number] 2.16.840.1.407038.3.579. 2.174 1944 Unknown [id number] 2.16.840.1.618971.3.579. 2.174 1944 Unknown [id number] 2.16.840.1.044418.3.579. 2.174 1944 Unknown [id number] 2.16.840.1.308984.3.579. 2.174 1944 Unknown [id number] 2.16.840.1.095298.3.579. 2.174 1944 Unknown [id number] 2.16.840.1.828328.3.579. 2.174 1944 Unknown [id number] 2.16.840.1.471165.3.579. 2.174 1944 Unknown [id number] 2.16.840.1.394560.3.579. 2.174 1944 Unknown [id number] 2.16.840.1.199224.3.579. 2.174 1944 Unknown [id number] 2.16.840.1.941474.3.579. 2.174 1944 Unknown [id number] 2.16.840.1.085635.3.579. 2.174 1944 Unknown [id number] 2.16.840.1.252563.3.579. 2.1259 1944 Unknown [id number] 2.16.840.1.404176.3.579. 2.1259 1944 Unknown [id number] 2.16.840.1.166073.3.579. 2.1259 1944 Unknown [id number] 2.16.840.1.801063.3.579. 2.173 1944 Unknown [id number] 2.16.840.1.665232.3.579. 2.903 1944 Unknown [id number] 2.16.840.1.959853.3.579. 2.903 1944 Unknown [id number] 2.16.840.1.534287.3.579. 2.903 1944 Unknown [id number] 2.16.840.1.650161.3.579. 2.196 1944 Unknown [id number] 2.16.840.1.729433.3.579. 2.196 1944 Unknown [id number] 2.0.1.581064.3.579. 2.196 1944 Unknown [id number] 2.0.1.646063.3.579. 2.196 1944 Unknown [id number] 2.0.1.150990.3.579. 2.196 1944 Unknown [id number] 2.0.1.749929.3.579. 2.196 1944 Unknown [id number] 2.0.1.058011.3.579. 2. 1944 Unknown [id number] 2..1.561780.3.579. 2.196 Medicare supplementa l policy (as second payer) [employer] [facility] [place] [address] 1.2.840.667346.1.13.385. 2.7.9.671481.310.315 Unknown [id number] .1.192282.3.579. 2.531 Unknown [id number] .1.214438.3.579. 2.531 Unknown [id number] 2.1.607027.3.579. 2.531 Unknown [id number] 20.1.566575.3.579. 2.531 Social History Date Type Detail Facility Start: 05-30-2019 End: 05-02-2023 Tobacco smoking status INIS Never smoker [facility] Start: 05-30-2019 End: 11-30-2024 Alcohol intake Current non-drinker of alcohol (finding) [facility] [place], [place] Start: 1945 Sex Assigned At [place] file [place] Start: 03-31-2020 End: 05-02-2023 Tobacco use and exposure Never used [facility] [place] Exposure to SARS-CoV-2 (event) Yes [facility] [place], [place] Start: 10-04-2021 End: 07-12-2022 Exposure to SARS-CoV-2 (event) Not sure [employer] Start: 11-22-2020 End: 09-03-2022 History SDOH Financial 5 Synchronized Work Phone: Start: 11-22-2020 End: 09-03-2022 History SDOH Food Worry 1 Synchron[employer] Work Phone: Start: 1945 Sex Assigned At Female [employer] Work Phone: Start: 04-14-2019 End: 02-05-2025 Alcohol intake [place] Tobacco smoking status Never [facility] Start: 09-03-2022 End: 11-25-2022 History SDOH Alcohol Frequency 2 [employer] Work Phone: Start: 11-25-2022 History SDOH Alcohol Std Drinks 0 [employer] Work Phone: Start: 11-25-2022 End: 02-05-2025 History of Social function [employer] How often to you hav e a drink containing alcohol? Monthly or less [employer] How often do you hav e 6 or more drinks on 1 occasion? Never [employer] (I/We) worried whether (my/our) food would run out before (I/we) got money to buy more. Never true [employer] At any time in the past 12 months, were you homeless or living in [place] [facility] [including now]? No [employer] Start: 01-27-2021 Gender identity Identifies as female gender (finding) [employer] Start: 04-13-2020 Sexual orientation Heterosexual (fin ding) [facility] Start: 05-02-2023 End: 02-05-2025 Alcohol intake Ex-drinker (finding) [facility] Start: 08-10-2012 End: 08-12-2024 Sex Female (finding) [facility] Start: 02-03-2023 End: 11-26-2024 Alcoholic beverage intake Lifetime non-drinker (finding) [facility] Start: 02-03-2023 Alcohol Comment caffeine: 1-2 cups per day coffee [facility] NEGATED: Highlighted rowStart: NINF History of tobacco use Passive smoker [facility] Medical Equipment Procedure Code Equipment Code Equipment Origin al Text Equipment Identifier Dates Surgical procedure, using tension free vaginal tape, for stress incontinence [id number] FDA Start: 06-03-2019 Surgical procedure, using tension free vaginal tape, for stress incontinence [id number] FDA Start: 06-03-2019 Surgical procedure, using tension free vaginal tape, for stress incontinence [id number] FDA Start: 06-03-2019 Surgical procedure, using tension free vaginal tape, for stress incontinence [id number] FDA Start: 06-03-2019 Surgical procedure, using tension free vaginal tape, for stress incontinence [id number] FDA Start: 06-03-2019 Surgical procedure, using tension free vaginal tape, for stress incontinence [id number] FDA Start: 06-03-2019 Surgical procedure, using tension free vaginal tape, for stress incontinence [id number] FDA Start: 06-03-2019 Surgical procedure, using tension free vaginal tape, for stress incontinence [id number] FDA Start: 06-03-2019 Surgical procedure, using tension free vaginal tape, for stress incontinence [id number] FDA Start: 06-03-2019 Surgical procedure, using tension free vaginal tape, for stress incontinence [id number] FDA Start: 06-03-2019 Surgical procedure, using tension free vaginal tape, for stress incontinence [id number] FDA Start: 06-03-2019 Surgical procedure, using tension free vaginal tape, for stress incontinence [id number] FDA Start: 06-03-2019 Surgical procedure, using tension free vaginal tape, for stress incontinence [id number] FDA Start: 06-03-2019 Surgical procedure, using tension free vaginal tape, for stress incontinence [id number] FDA Start: 06-03-2019 Surgical procedure, using tension free vaginal tape, for stress incontinence [id number] FDA Start: 06-03-2019 Surgical procedure, using tension free vaginal tape, for stress incontinence [id number] FDA Start: 06-03-2019 Surgical procedure, using tension free vaginal tape, for stress incontinence [id number] FDA Start: 06-03-2019 {01}[id number] 82 7{17}521583{10}14 234918 FDA Start: 07-28-2021 Goals Date Patient Goal Desired Activity /State Personal health goal Functional Status Date Assessment Result Facility 09-16-2023 Functional Status N/A [facility] 02-28-2023 Functional Status N/A [facility] 08-28-2022 Functional Status N/A [facility] 07-26-2022 Functional Status N/A [facility] 07-10-2022 Functional Status N/A [facility] Clinical Notes 11-18-2020 to 02-05-2025 Georges Barger PA-C - 02/05/2025 9:55 AM Christian Enriquez PA-C - 01/15/2025 9:54 AM Radha Canales DPM - 11/26/2024 9:30 AM Radha Canales DPM - 08/17/2024 2:00 PM EST Note Date & Type Note Facility 02-05-2025 Note Patient Name: Iva [facility] Location: [address] [address] Date Of : Date Of Visit: 1945 02/05/2025 MRN# Provider: [id number] Georges Barger PA-C Chief Complaint Patient presents [...] been dictated. This dictation was generated using SocialKaty voice recognition software. Please excuse any grammatical [...] display Orders Placed (more content not included)... [facility] 02-05-2025 History of Present illness Narrative Images from the original note were not included. Patient Name: [facility] Location: Mary Jane Ora [address] [address] Date Of : Date Of Visit: 1945 02/05/2025 MRN# Provider: [id number] Georges Barger PA-C Chief Complaint Patient presents [...] been dictated. This dictation was generated using [employer]Katy voice recognition software. Please excuse any grammatical [...] for this visit. documented in this encounter [facility] 01-15-2025 Note Patient Name: [facility] Location: [address] [address] Date Of : Date Of Visit: 1945 01/15/2025 MRN# Provider: [id number] Christian Lucio PA-C Chief Complaint Patient presents [...] instances, original wilner (more content not included)... [facility] 01-15-2025 History of Present illness Narrative Images from the original note were not included. Patient Name: [facility] Location: Mary Jane Rios [address] [facility] [address] Date Of : Date Of Visit: 1945 01/15/2025 MRN# Provider: [id number] Christian Lucio PA-C Chief Complaint Patient presents [...] for this visit. documented in this encounter [facility] 11-26-2024 History of Present illness Narrative [...] planned and reviewed documented in this encounter [facility] 08-17-2024 History of Present illness Narrative Mary Jane Rios is a 78 y.o. female presents with chief complaint of Ankle Pain (Rgt Ankle pain) HPI: HPI Pt states she sprained rgt ankle 07/07/2024 but does not know how it happened. Saw Dr Bello [facility], [employer] [facility] in [place] for this and was given tall boot. [...] until gait normal documented in this encounter [facility] 07-10-2024 Note PROCEDURE: XR ANKLE RIGHT (MIN 3 VIEWS) HISTORY: ankle pain COMPARISON: None. FINDINGS: BONES:No acute fracture, dislocation, or joint space narrowing. Small corticated ossifications adjacent the tip of the medial and lateral malleolar line compatible with sequela of remote injury. Large degenerative calcaneal plantar spur. SOFT TISSUES:No visible soft tissue swelling. EFFUSION:None visible. OTHER: Negative. [facility] 07-10-2024 Note PROCEDURE: XR ANKLE RIGHT (MIN [...] by: Bello Leal MD Signed by: Bello Leal MD 07/10/24 Final result [facility] 06-24-2024 Hospital Discharge instructions Monster Mei MD - 06/24/2024 6:20 PM EST Vitamin D3 4000 units daily x 7 days Vitamin C 1000 mg Aspirin 81 mg daily The following attachments cannot be sent through Care Everywhere.COVID-19: High Risk for Serious Illness: General Info ([place] Island[place])documented in this encounter [facility] 10-23-2023 Hospital Discharge instructions Lexy Tapia MD [...] and blood thinners. 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 Stay well-hydrated with water or nonsugar sports drinks, Zofran ODT for any nausea as needed, I would advise not to use anything for the diarrhea at this time save soft toilet paper or baby wipes as needed. The following attachments cannot be sent through Care Everywhere.Serous Otitis Media ([place] Island[place])Atrial Fibrillation ([place] Island[place])Direct Oral Anticoagulants: Non-Vitamin K Antagonist ([place] Islander)Oral Rehydration ([place] Islander)documented in this encounter [facility] 09-17-2023 Note [id number] [facility] 09-16-2023 Hospital Discharge instructions Patient Education 09/16/2023 [...] 3 times a day. General instructions Take okxr-zjb-byxdpte and prescription medicines only as told by [...] provider. Document Revised: 12/27/2021 Document Reviewed: 12/27/2021 [employer] Patient Education 2022 [email or web address]. 09/16/2023 14:59:47 Diverticulosis MAGR (CUSTOM) Diverticulosis Many [...] unsweetened, w/added ascorbic acid 1 cup 0.5 Mcdowell 1 cup 0.7 Vegetables Cooked Green beans 1 cup 4.0 Carrots 1/2 cup sliced 2.3 Peas 1 cup 8.8 Potato (baked, with skin) 1 medium potato 3.8 Raw [place] (with peel) 1 cucumber 1.5 Lettuce 1 [...] 8.7 Peanuts 1/2 cup 7.9 Chart from [employer] 2013. SEEK IMMEDIATE MEDICAL CARE IF: You [...] of Agriculture (USDA) National Nutrient Database at: http://www.Outcome Referrals.usda.gov/fnic/f oodcomp/search/ Created using data from the USDA National Nutrient Database for Standard Reference. Available at http://www.Outcome Referrals.Netbooks.gov/fnic/f oodcomp/search/. Information adapted from: [facility] Patient Information 2010 ivWatch. [employer] 2012 http://www.[employer]/debn ts/pbkquimwpzht-jgazmqb-olqpxa -the-basics 09/16/2023 14:59:47 Colon Polyps Colon Polyps [...] hard liquor (44 mL). General instructions Take kupw-syo-slwliiu and prescription medicines only as told by [...] provider. Document Revised: 10/05/2020 Document Reviewed: 10/05/2020 [employer] Patient Education 2022 [email or web address]. Follow Up Care 02/28/2023 13:25:17 With:Davion Olivares Address: [address] [place] [address], [address] [phone] Business (1) When: Unknown Comments:office will call for follow up [facility] 09-16-2023 Evaluation + Plan note Extrac pepito from: Title:ANES Post General Author:Danny Abdies iology ()Obie Date:09/16/23 Plan Transfer/Discharge: Patient exhibiting no signs of N/V. Hydration status is adequate. Extracted from: Title:Danny Basic PRE Author:Danny Condon siology ()Obie Date:09/16/23 Plan [place] Society of Anesthesiologists (ASA) physical status classification: Class III. Anesthetic Preoperative Plan: Anesthesia General. [facility]11-02-2023 Instructions* Patient Instructions* Grayson Hutchinson Jr., DO [...] for repeat hearing testing. documented in this [id number] History of Present illness Narrative* Mary Sue AuD - 05/02/2023 9:19 AM EDT Images from the original note were not included. [facility] [address] [place] [address] Name: Mary Jane Rios : 1945 Date: [...] for bilateral ear infection. She returned to [facility] and was told that herear was still infected. She reports her last hearing test several years ago in [place]. 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 Electronically Signed by: Oswaldo Blake, [facility] 05/02/23 9:19 AM documented in this [id number] History of Present illness Narrative* Grayson Hutchinson Jr., DO - 05/02/2023 8:57 AM EDT Images from the original note were not included. Subjective Patient ID: Mary Jane Rios is a 77 y.o. female. [employer], referral from Andre Rowe [facility] for otitis media. Patient states she has had left ear infections for most of her life. She was treated for ear infection with Augmentin in October. 3 weeks ago, woke up with extreme pain and was treated again for b/l ear infection. She returned to [facility] and was told thather ear was still infected. Last hearing test several years ago in [place]. 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 documented in this [id number] NoteChief Complaint: lbp and radicular pain right [...] current indications for surgical management [facility] NoteChief Complaint: lbp and radicular [...] preoperative surgical planning [facility]* Encounter Date Diagnosis Assessment Notes Treatment Notes Treatment Clinical Notes Mar, Piriformis syndrome of right side (ICD-10 - G57.01) [facility] 09-14-2023 Evaluation note* Encounter Date Diagnosis [...] note writ ten by John Merlos LPN, Windlace Machine Operator. Edited and approved by Dr. Yanelis Garcia MD. [facility] 09-07-2023 Evaluation note* Encounter Date Diagnosis [...] be replaced but there are areas of omdg-pd-jkbu. My suspicion is that this is causing some nerve irritation I have no indication for doing back surgery I think injections in the spine will be of no benefit she is already had some and they have not helped. I think what needs to be injected or treated is the area around the hip. Mar, Right hip pain (ICD-10 - M25.551) [facility] 08-28-2023 Evaluation note* Encounter Date Diagnosis Assessment Notes Treatment Notes Treatment Clinical Notes Jan, Other spondylosis with radiculopathy, lumbar region (ICD-10 - M47.26) [facility] 08-17-2023 Evaluation note* Encounter Date Diagnosis Assessment Notes Treatment Notes Treatment Clinical Notes Jan, Other spondylosis with radiculopathy, lumbar region (ICD-10 - M47.26) [facility] 08-11-2023 Hospital Discharge instructions* Discharge Instructions* Keyshawn Suresh PA-C - 02/08/2023 4:26 PM EDT Follow-up with primary care doctor 7 to 10 days for reevaluation. Continue to wear corrective shoe as directed to prevent future sciatica low back pain events. Take Hiller as directed. As we discussed, break a tab of Hiller in half and take every 6 hours as needed for pain. Promptly return to emergency department for new, changing, worsening of symptoms or other concerns. * Attachments The following attachments cannot be sent through Care Everywhere. * Back Pain ([place] Island[place]) * Sciatica ([place] Island[place]) [facility]* Encounter Date Diagnosis Assessment [...] therapy. Follow above of treatment plan recommendations. [facility] 05-28-2023 History of Present illness Narrative* Zunilda Bullock RN - 11/25/2022 10:47 AM EDT Ticket to ride completed. The following information was reported off: Name Allergies Orientation Level Destination Safety Issues Code Status Oxygen Requirements Special needs including mobility, language, communication [facility] Work Phone: 1(852) 370-856602-28-2023 Hospital Discharge instructions Patient Education 08/28/2022 13:26:40 [...] powder, vinegar, hot sauces, and barbecue sauce. ?Calloway fruit juices and citrus fruits, such as oranges, kamilah, and limes. ?Tomato-based foods, such as red sauce, chili, salsa, and pizza with red sauce. ?Fried and fatty foods, such as donuts, egyptian fries, potato chips, and high-fat dressings. ?High-fat [...] to any changes in your symptoms. Take kxdt-tfr-fnzojwn and prescription medicines only as told by [...] you have new or worsening symptoms. Take vipy-djt-wkfvltn and prescription medicines only as told by [...] 03/27/2006 Document Revised: 12/24/2018 Document Reviewed: 12/24/2018 [employer] Patient Education 2020 [email or web address]. Follow Up Care 08/15/2022 13:39:48 With:KHADAR STEINER, EMIL Ferrari, [facility] Address: [address] [place] [address]. [address] [place] [address] When:6 months Comments:Patient requests to be evaluated by Dr. Hernandez next visit. [facility] 01-31-2023 Evaluation note* Encounter [...] note writ ten by John Merlos LPN, Windlace Machine Operator. Edited and approved by Dr. Yanelis Garcia MD. [facility] 01-26-2023 Evaluation + Plan noteExtracted from: Title:ANES Pre-operative Note Author:Misha STEINER, R miryam S. Date:07/26/22 Plan [place] Society of Anesthesiologists (ASA) physical status classification: Class III. Anesthetic Preoperative Plan: Anesthesia General. [facility]01-26-2023 Hospital Discharge instructions Patient Education [...] what activities are safe for you. Take mbft-mdy-kiykrfb and prescription medicines only as told by [...] 12/16/2012 Document Revised: 12/09/2018 Document Reviewed: 11/17/2018 [employer] Patient Education 2020 [email or web address]. Follow Up Care 07/10/2022 14:59:17 With:Vonda HERNANDEZ Address: [facility] [address] [place] [address] Business (1) When: Unknown Comments:Office will call date and time of follow-up appt. [facility]01-17-2023 Procedure [facility]01-12-2023 Hospital Discharge instructions* Discharge Instructions* Alma Mao DO - 07/12/2022 9:31 AM EST Go to your scheduled appt with your GI doctor for your scope. * Attachments The following attachments cannot be sent through Care Everywhere. * Sore Throat ([place]) documented [facility] Phone: [phone]) 236-426101-10-2023 Hospital Discharge instructions Patient Education 07/10/2022 14:24:54 [...] powder, vinegar, hot sauces, and barbecue sauce. ?[place]ay fruit juices and citrus fruits, such as oranges, kamilah, and limes. ?Tomato-based foods, such as red sauce, chili, salsa, and pizza with red sauce. ?Fried and fatty foods, such as donuts, egyptian fries, potato chips, and high-fat dressings. ?High-fat [...] to any changes in your symptoms. Take rusr-xpc-lfvnqoz and prescription medicines only as told by [...] you have new or worsening symptoms. Take fdwk-fur-qrhcrvp and prescription medicines only as told by [...] 03/27/2006 Document Revised: 12/24/2018 Document Reviewed: 12/24/2018 [employer] Patient Education 2020 [email or web address]. Follow Up Care 06/26/2022 15:51:19 With:Donna Spencer CNP Address: When:1 to 2 weeks Comments:Following EGD. [facility] 12-14-2022 Evaluation note* Encounter [...] note writ ten by John Merlos LPN, Windlace Machine Operator. Edited and approved by Dr. Yanelis Garcia MD. [facility] 11-02-2022 Evaluation note* Encounter Date Diagnosis [...] note writ ten by Rush Toro MA, Windlace Machine Operator. Edited and approved by Dr. Yanelis Garcia MD. [facility] 10-10-2022 Evaluation note* Encounter Date Diagnosis [...] note writ ten by John Merlos LPN, Windlace Machine Operator. Edited and approved by Dr. Yanelis Garcia MD. [place] [facility] Other 04-13-2022 History of Present illness Narrative* Zo Chen, PT - 10/11/2021 9:00 AM EDT Images from the original note were not included. [facility] Outpatient Physical Therapy Daily Note Date: 10/11/2021 Patient Name: Mary Jane Rios : 1945 (75 y.o.) Referring Practitioner: Dr. 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 : 18 visits termite exterminator goal 1: PROM flexion 150 deg and abduction 140 deg- MET halfway goal 2: PROM ER 50 deg and IR 60 deg (@ 90 deg )- MET halfway goal 3: Functionally elevate right shoulder to reach behind head for self care/hair care-MET halfway goal 4: Functionally reach behind back to don coat or bra- NOT MET termite exterminator goal 5: Strength right shoulder/UE to carry gallon of milk- MET Post Treatment Pain: 08/10 Time In: 0900 Time Out : 0950 Timed Code Treatment Minutes: 45 Minutes Total Treatment Time: 50 Minutes ZO CHEN PT Date: 10/11/2021 [facility] Work Phone: [phone]) 363-165804-13-2022 Hospital course Narrative* Zo Chen PT - 10/11/2021 9:00 AM EDT Images from the original note were not included. [facility] Therapy Discharge Summary Patient: Mary Jane Rios : 1945 Referring Practitioner: Dr. Meyer Diagnosis: Right RCR repair Date Treatment Initiated: 04/28/22 Date of Last Treatment: 10/11/21 PT Visit Information Onset Date: 07/28/21 PT Insurance Information: [facility] Total # of Visits Approved: 18 Total [...] CHEN, PT Date: 10/11/2021 [facility] Phone: 1(128) 431-238204-06-2022 History of Present illness Narrative* Zo Chen PT - 10/04/2021 11:15 AM EDT Images from the original note were not included. 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 goals : 18 visits termite exterminator goal 1: PROM flexion 150 deg and abduction 140 deg termite exterminator goal 2: PROM ER 50 deg and IR 60 deg (@ 90 deg ) termite exterminator goal 3: Functionally elevate right shoulder to reach behind head for self care/hair care termite exterminator goal 4: Functionally reach behind back to don coat or bra halfway goal 5: Strength right shoulder/UE to carry gallong of milk Post Treatment Pain: 10 Time In: 1115 Time Out : 1200 Timed Code Treatment Minutes: 45 Minutes Total Treatment Time: 45 Minutes ZO CHEN PT Date: 10/04/2021 [facility] Phone: [phone]) 185-571203-28-2022 History of Present illness Narrative* Rashmi Paige - 09/25/2021 11:15 AM EDT [facility] Date: 09/25/2021 Patient Name: Mary Jane Rios : 1945 Pt Cancelled Appt due to going to a . Rashmi Paige Date: 09/25/2021 documented [facility] this [facility] Phone: [phone]) 983-881903-24-2022 History of Present illness Narrative* Velasquez JANETH Martel - 09/21/2021 9:00 AM EDT Images from the original note were not included. [facility] Therapy Daily Note Date: 09/21/2021 Patient Name: Mary Jane Rios : 1945 (75 y.o.) Referring Practitioner: Dr. 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 goal 1: PROM flexion 150 deg and abduction 140 deg termite exterminator goal 2: PROM ER 50 deg and IR 60 deg (@ 90 deg ) halfway goal 3: Functionally elevate right shoulder to reach behind head for self care/hair care halfway goal 4: Functionally reach behind back to don coat or bra termite exterminator goal 5: Strength right shoulder/UE to carry gallong of milk Post Treatment Pain: 10 Time In: 0901 Time Out : 0946 Timed Code Treatment Minutes: 45 Minutes Total Treatment Time: 45 Minutes Velasquez Martel PTA Date: 09/21/2021 [facility] Phone: 1(695) 486-627803-22-2022 History of Present illness Narrative* Nancy Nunez - 09/19/2021 9:15 AM EDT Images from the original note were not included. [facility] Daily Note Date: 09/19/2021 Patient Name: Mary Jane Rios : 1945 (75 y.o.) Referring Practitioner: Dr. 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 : 18 visits halfway goal 1: PROM flexion 150 deg and abduction 140 deg halfway goal 2: PROM ER 50 deg and IR 60 deg (@ 90 deg ) termite exterminator goal 3: Functionally elevate right shoulder to reach behind head for self care/hair care termite exterminator goal 4: Functionally reach behind back to don coat or bra halfway goal 5: Strength right shoulder/UE to carry gallong of milk Post Treatment Pain: 09/07 Time In: 0915 Time Out : 0958 Timed Code Treatment Minutes: 43 Minutes Total Treatment Time: 43 Minutes Nancy S MayraLABEL PRINTING MACHINIST Date: 09/19/2021 [facility] Phone: [phone] 672-139603-18-2022 History of Present illness Narrative* Velasquez Martel, LABEL PRINTING MACHINIST - 09/15/2021 9:45 AM EDT Images from the original note were not included. [facility] Daily Note Date: 09/15/2021 Patient Name: Mary Jane Rios : 1945 (75 y.o.) Referring Practitioner: Dr. 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 : 18 visits halfway goal 1: PROM flexion 150 deg and abduction 140 deg halfway goal 2: PROM ER 50 deg and IR 60 deg (@ 90 deg ) termite exterminator goal 3: Functionally elevate right shoulder to reach behind head for self care/hair care termite exterminator goal 4: Functionally reach behind back to don coat or bra termite exterminator goal 5: Strength right shoulder/UE to carry gallong of milk Post Treatment Pain: 10/08 Time In: 0945 Time Out : 1030 Timed Code Treatment Minutes: 45 Minutes Total Treatment Time: 45 Minutes Velasquez Martel PTA Date: 09/15/2021 documented [facility] this [facility] Phone: [phone] History of Present illness Narrative* Velasquez Martel PTA - 09/13/2021 9:45 AM EDT Images from the original note were not included. [facility] Daily Note Date: 09/13/2021 Patient Name: Mary Jane Rios : 1945 (75 y.o.) Referring Practitioner: Dr. 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 exterminator goal 1: PROM flexion 150 deg and abduction 140 deg halfway goal 2: PROM ER 50 deg and IR 60 deg (@ 90 deg ) termite exterminator goal 3: Functionally elevate right shoulder to reach behind head for self care/hair care halfway goal 4: Functionally reach behind back to don coat or bra termite exterminator goal 5: Strength right shoulder/UE to carry gallong of milk Post Treatment Pain: Time In: 0945 Time Out : 1030 Timed Code Treatment Minutes: 45 Minutes Total Treatment Time: 45 Minutes Velasquez Martel PTA Date: 09/13/2021 documented in this [facility] Work Phone: [phone]) [phone] History of Present illness Narrative* Zo Chen PT - 09/07/2021 11:15 AM EST Images from the original note were not included. [facility] Daily Note Date: 09/07/2021 Patient Name: Mary Jane Rios : 1945 (75 y.o.) Referring Practitioner: Dr. 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 exterminator goal 4: Functionally reach behind back to don coat or bra termite exterminator goal 5: Strength right shoulder/UE to carry gallong of milk Post Treatment Pain: 08/10 Time In: 1105 Time Out : 1150 Timed Code Treatment Minutes: 45 Minutes Total Treatment Time: 45 Minutes ZO CHEN PT Date: 09/07/2021 [facility] Phone: [phone]) 506-739012-13-2021 History of Present illness Narrative* Rashmi Paige - 06/12/2021 10:30 AM EST [facility] Date: 06/12/2021 Patient Name: Mary Jane Rios : 1945 Pt Cancelled Appt due to Illness Rashmi Paige Date: 06/12/2021 documented [facility] Phone: [phone]) [phone] History of Present illness Narrative* Zo Chen, PT - 05/05/2021 2:30 PM EDT Images from the original note were not included. 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 exterminator goal 1: Subjective right shoulder pain < 3/10 with daily household tasks halfway goal 2: Active functional mobility to reach behind head for hair care and behind back to don coat/dressing termite exterminator goal 3: Strength right shoulder to lift/carry gallon of milk or fold clothes Post Treatment Pain: 09/07 Time In: 1435 Time Out : 1510 Timed Code Treatment Minutes: 35 Minutes Total Treatment Time: 35 Minutes ZO CHEN PT Date: 05/05/2021 documented in this [facility] Work Phone: [phone]) 234-761105-21-2021 History of Present illness Narrative* Ericka Cline RN - 11/18/2020 6:50 AM EDT Pt states she took 6 tablets of Imodium yesterday. She states she is incontinent of urine/stool & the imodium is not helping. [facility] Phone: evaluation + Plan note No data available for this section [facility] Evaluation + Plan note Future Appointments Appointment Date:07/10/2022 02:00:00 PM Scheduled Provider:Donna Spencer CNP Location:[facility] Appointment Type:[facility] Follow Up [facility] Evaluation + Plan note Future Appointments Appointment Date:07/26/2022 08:15:00 AM Scheduled Provider: Location:[facility] Appointment Type:Surgery FT [facility] Evaluation + Plan note Future Appointments Appointment Date:02/28/2023 12:00:00 PM Scheduled Provider:Vonda HERNANDEZ MD Location:[facility] Appointment Type:[facility] Follow Up Future Scheduled Tests Laboratory* Vitamin B12 Level 08/28/22 [facility] Evaluation + Plan note Future Appointments Appointment Date:08/05/2023 12:30:00 PM Scheduled Provider: Location:[facility] Appointment Type:Surgery FT Future Scheduled Tests Laboratory* Vitamin B12 Level 08/28/22 [facility] Evaluation note* Diagnosis Nausea vomiting and diarrhea- Primary Nausea with vomiting documented in this encounter [employer] Phone: evaluation note* Diagnosis Diarrhea of presumed infectious origin Intractable vomiting with nausea, unspecified vomiting type documented in this encounter [employer] Phone: evaluation note* Diagnosis Diarrhea, unspecified type- Primary General weakness Other malaise and fatigue Urinary incontinence, unspecified type documented in this encounter [employer] Phone: [email or web address] note* Diagnosis Low hemoglobin Anemia, unspecified documented in this encounter [employer] Phone: evaluation note* Diagnosis Low hemoglobin Anemia, unspecified documented in this encounter [employer] Phone: evaluation note* Diagnosis Screening mammogram, encounter for documented in this encounter [employer] Phone: evaluation note* Diagnosis Right shoulder pain, unspecified chronicity documented in this encounter [employer] Phone: evaluation note* Diagnosis Acute non-recurrent pansinusitis documented in this encounter [employer] Phone: evaluation note* Diagnosis Diarrhea of presumed infectious origin [facility]* Diagnosis History of arthroscopy of right shoulder documented in this encounter [employer] Phone: evaluation note* Diagnosis Essential hypertension Unspecified essential hypertension Palpitations Hypothyroidism, unspecified type Hyperlipidemia, unspecified hyperlipidemia type Vitamin D deficiency disease Unspecified vitamin D deficiency documented in this encounter [employer] Phone: evaluation note* Diagnosis Essential hypertension Unspecified essential hypertension Pure hypercholesterolemia Acquired hypothyroidism Unspecified hypothyroidism Palpitations Vitamin D deficiency disease Unspecified vitamin D deficiency documented in this encounter [employer] Phone: evaluation note* Diagnosis Essential hypertension Unspecified essential hypertension Pure hypercholesterolemia Acquired hypothyroidism Unspecified hypothyroidism Palpitations Vitamin D deficiency disease Unspecified vitamin D deficiency documented in this encounter [employer] Phone: evaluation note* Diagnosis Essential hypertension Unspecified essential hypertension Pure hypercholesterolemia Acquired hypothyroidism Unspecified hypothyroidism Palpitations Vitamin D deficiency disease Unspecified vitamin D deficiency documented in this encounter [employer] Phone: evaluation note* Diagnosis Acute cystitis with hematuria- Primary Acute cystitis Vaginal yeast infection Candidiasis of vulva and vagina documented in this encounter [employer] Phone: evaluation note* Diagnosis Women's annual routine gynecological examination Vaginal burning Other specified symptom associated with female genital organs documented in this encounter [employer] Phone: evaluation note* Diagnosis H/O repair of right rotator cuff Personal history of surgery to other organs documented in this encounter [employer] Phone: [email or web address] note* Diagnosis Visit for screening mammogram Other screening mammogram documented in this encounter [employer] Phone: [email or web address] noteNo assessment information available [facility] Work Phone: Evaluation noteNo [facility]NoLe[facility] [employer] Other Evaluation note* Diagnosis Acute pharyngitis, unspecified etiology- Primary documented in this encounter [employer] Phone: [email or web address] note* Diagnosis Essential hypertension Unspecified essential hypertension Palpitations Hypothyroidism, unspecified type Hyperlipidemia, unspecified hyperlipidemia type Vitamin D deficiency disease Unspecified vitamin D deficiency documented in this encounter [employer] Phone: evaluation note* Diagnosis Non-recurrent acute suppurative otitis media of left ear without spontaneous rupture of tympanic membrane- Primary Acute nonintractable headache, unspecified headache type documented in this encounter [employer] Phone: [email or web address] note* Diagnosis Chronic low back pain with right-sided sciatica, unspecified back pain laterality- Primary documented in this encounter [facility] [employer] note* Diagnosis Renal cyst Unspecified congenital cystic kidney disease documented in this encounter [facility] [employer] note* Diagnosis Bruxism (teeth grinding)- Primary Other specified psychophysiological malfunction Acute suppurative otitis media of left ear without spontaneous rupture of tympanic membrane, recurrence not specified ROSETTE on CPAP Hearing loss, unspecified hearing loss type, unspecified laterality [facility]* Diagnosis Sensorineural hearing loss, bilateral- Primary Hearing loss, unspecified hearing loss type, unspecified laterality [facility]* Diagnosis COVID-19 virus infection- Primary documented in this encounter [facility] [employer] note* Diagnosis New onset atrial fibrillation (HCC)- Primary Atrial fibrillation Atrial fibrillation with RVR (HCC) Atrial fibrillation History of chronic kidney disease Personal history of other disorder of urinary system Symptoms of dehydration Fluid level behind tympanic membrane of both ears Acute pansinusitis, recurrence not specified Nausea vomiting and diarrhea Nausea with vomiting [facility]* Diagnosis Paroxysmal atrial fibrillation (HCC)- Primary Atrial fibrillation documented in this encounter [facility] note* Diagnosis Visit for screening mammogram Other screening mammogram documented [facility]* Diagnosis COVID-19 virus infection- Primary documented in this encounter [facility] note* Diagnosis Sprain of right ankle, unspecified ligament, initial encounter- Primary documented in this encounter [facility] note* Diagnosis Grade 2 ankle sprain- Primary Pain in joint involving right ankle and foot Right foot pain Pain in soft tissues of limb Ankle instability, right documented [facility] encounter [facility]* Diagnosis 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 (male)(female) documented in this encounter [facility] note* Diagnosis Essential hypertension Unspecified essential hypertension Palpitations Hyperlipidemia, unspecified hyperlipidemia type Hypothyroidism, unspecified type Vitamin D deficiency disease Unspecified vitamin D deficiency documented in this encounter [facility] note* Diagnosis Essential hypertension Unspecified essential hypertension Palpitations Hyperlipidemia, unspecified hyperlipidemia type Hypothyroidism, unspecified type Vitamin D deficiency disease Unspecified vitamin D deficiency documented in this encounter [facility] note* Diagnosis Essential hypertension Unspecified essential hypertension Palpitations Hyperlipidemia, unspecified hyperlipidemia type Hypothyroidism, unspecified type Vitamin D deficiency disease Unspecified vitamin D deficiency documented in this encounter [facility] note* Diagnosis Grade 2 ankle sprain- Primary Ankle instability, right Right foot drop Other acquired deformity of ankle and foot documented in this encounter [facility]* Diagnosis Gross hematuria documented in this encounter [facility] note* Diagnosis Bacterial URI- Primary Dermatitis Contact dermatitis and other eczema, due to unspecified cause [facility]* Diagnosis Cough, unspecified type- Primary Sore throat Acute pharyngitis Nasal congestion Other diseases of nasal cavity and sinuses Cough, unspecified type [facility] Narrative - Reported* Type Description Date [...] History Epidural injections Hospitalization History see above [facility] Other History general Narrative - Reported* Type [...] cuff tear repair Hospitalization History see above [facility] Other Hospital Discharge instructions* Attachments The following attachments cannot be sent through Care Everywhere. * Diarrhea ([place]) documented in this [employer] Phone: Hospital Discharge instructions* Attachments The following attachments cannot be sent through Care Everywhere. * Fatigue ([place]) * Diarrhea ([place]) * Stress Incontinence: Female ([place]) * Urge Incontinence: Female ([place]) documented in this [employer] Phone: Hospital Discharge instructions* Attachments The following attachments cannot be sent through Care Everywhere. * UTI (Urinary Tract Infection): Female ([place]) * Vaginal Yeast Infection ([place]) documented in this [employer] Phone: Hospital Discharge instructions No data available for this section [facility] Hospital Discharge instructions* Attachments The following attachments cannot be sent through Care Everywhere. * Otitis Media ([place]) * Headache ([place]) [facility]* Attachments The following attachments cannot be sent through Care Everywhere. * Coronavirus Disease (COVID-19): General Info ([place]) [facility]* Attachments The following attachments cannot be sent through Care Everywhere. * Supraventricular Tachycardia ([place]) [facility]* Attachments The following attachments cannot be sent through Care Everywhere. * Ankle Sprain ([place]) * RICE: General Info ([place]) [facility]* Attachments The following attachments cannot be sent through Care Everywhere. * Dermatitis ([place]) documented in this encounterOhioHealthInstructions* Attachments The following attachments cannot be sent through Care Everywhere. * Cough ([place]) documented in this encounter[facility]HealthProgress note No data available for this section [facility] Summary Purpose Family History [...] FoundDocuments on File Type Date Recorded Patient Editor Managing Director Expl anation Advance Directives and Livin g Will Advance Directives and Livin g Will 03/01/2016 1:57 PM Power of [employer] Power of [employer] 03/01/2016 1:57 PM Latest Code Status on File Code Status Date Activated Date Inactivated Comments Full Code 02/21/2015 1:32 PM 02/21/2015 5:10 PM Full Code 02/21/2015 12:11 PM 02/21/2015 1:32 PM Full Code 01/31/2015 10:04 AM 01/31/2015 12:51 PM Full Code 01/31/2015 8:49 AM 01/31/2015 10:04 AM Full Code 04/30/2012 8:28 AM 04/30/2012 3:52 PM Documents on File Type Date Recorded Patient Editor Managing Director Expl anation Advance Directives and Livin g Will Advance Directives and Livin g Will 03/01/2016 1:57 PM Power of [employer] Power of [employer] 03/01/2016 1:57 PM Latest Code Status on File Code Status Date Activated Date Inactivated Comments Full Code 02/21/2015 1:32 PM 02/21/2015 5:10 PM Full Code 02/21/2015 12:11 PM 02/21/2015 1:32 PM Full Code 01/31/2015 10:04 AM 01/31/2015 12:51 PM Full Code 01/31/2015 8:49 AM 01/31/2015 10:04 AM Full Code 04/30/2012 8:28 AM 04/30/2012 3:52 PM Documents on File Type Date Recorded Patient Editor Managing Director Expl anation ACP-Advance Directive ACP-Advance Directive 03/01/2016 1:57 PM ACP-Power of [employer] ACP-Power of [employer] 03/01/2016 1:57 PM Documents on File Type Date Recorded Patient Editor Managing Director Expl anation ACP-Advance Directive ACP-Advance Directive 03/01/2016 1:57 PM ACP-[employer] [place] [employer] ACP-[employer] [facility] [place] [employer] 03/01/2016 1:57 PM Documents on File Type Date Recorded Patient Editor Managing Director Expl anation ACP-Advance Directive ACP-[employer] [place] [employer] ACP-Advance Directive 03/01/2016 1:57 PM [facility] [place] [employer] 03/01/2016 1:57 PM Documents on File Type Date Recorded Patient Editor Managing Director Expl anation ACP-Advance Directive ACP-[employer] [place] [employer] ACP-Advance Directive 03/01/2016 1:57 PM [facility] [place] [employer] 03/01/2016 1:57 PM Healthcare Agents on File [...] Documents on File Type Date Recorded Patient Editor Managing Director Expl anation ACP-Advance Directive 03/01/2016 1:57 PM [facility] [place] [employer] 03/01/2016 1:57 PM Healthcare Agents on File Name Relationship Healthcare Agent Relationshi p Communication Adeel Athy Spouse Primary Decision Maker Advance Directive Response Recorded Date/ Time Advance Directives No April 22, 2017 3:57pm Advance Directive Response Recorded Date/ Time Advance Directives No April 22, 2017 2:57pm Documents on File Type Date Recorded Patient Editor Managing Director Expl anation ACP-Advance Directive 03/01/2016 1:57 PM [employer] [place] [employer] 03/01/2016 1:57 PM Healthcare Agents on File [...] Documents on File Type Date Recorded Patient Editor Managing Director Expl anation [employer] [place] [employer] 03/01/2016 1:57 PM ACP-Advance Directive 03/01/2016 1:57 [...] Documents on File Type Date Recorded Patient Editor Managing Director Expl anation [employer] [place] [employer] 03/01/2016 1:57 PM ACP-Advance Directive 03/01/2016 1:57 [...] Communication Adeel Athy Spouse Primary Decision Maker [email or web address] on File Name Relationship Healthcare Agent Relationshi p Communication Adeel Athy Spouse Primary Decision Maker [email or web address] on File Name Relationship Healthcare Agent Relationshi p Communication Adeel Ronny Spouse Primary Decision Maker [email or web address] on File Name Relationship Healthcare Agent Relationshi p Communication Adeel Athjuan c Spouse Primary Decision Maker [email or web address] on File Name Relationship Healthcare Agent Relationshi p Communication Adeel Athjuan c Spouse Primary Decision Maker [email or web address] on File Name Relationship Healthcare Agent Relationshi p Communication Adeel Athjuan c Spouse Primary Decision Maker [email or web address] Discharge Instructions * Instructions* Lexy Tapia MD - 05/30/2019 Antibiotic written as a SNAP (Safety net antibiotic prescription), start medication if fever develops You can take your Ashley or Ashley D or Claritin if desired, in addition to Flonase which may also help both your sinuses and ear effusions * Attachments The following attachments cannot be sent through Care Everywhere. * Sinusitis ([place]) documented in this encounter* Attachments The following attachments cannot be sent through Care Everywhere. * Fatigue ([place]) * Vertigo ([place]) documented in this encounter Assessments Diagnosis Acute [...] Procedures EKG 12 Lead Reagan Pascal MD [address] [place] [address] Status Reason Specialty Diagnoses / Procedures Referre d By Contact Referred To Contact Closed Radiology Diagnoses Screening mammogram, encounter for Procedures ANA WU DIGITAL SCREEN BILATERAL Roni Dalh MD [address] [place] [address] [facility] [address] [place] [address] Specialty Diagnoses / Procedures Referred By Contac t Referred To Contact Cardiology Diagnoses Essential hypertension Palpitations Hypothyroidism, unspecified type Hyperlipidemia, unspecified hyperlipidemia type Vitamin D deficiency disease Procedures EKG 12 Lead Reagan Pascal MD [address] [place] [address] Referral ID Status Reason Start Date Expiration Date Visits Re quested Visits Authorized [id number] Open 09/06/2021 09/06/2022 1 1 Status Reason Specialty Diagnoses / Procedures Referre d By Contact Referred To Contact Open Cardiology Diagnoses Essential hypertension Pure hypercholesterolemia Acquired hypothyroidism Palpitations Vitamin D deficiency disease Procedures EKG 12 Lead Reagan Pascal MD [address] [place] [address] Specialty Diagnoses / Procedures Referred By Contac t Referred To Contact Radiology Diagnoses Visit for screening mammogram Procedures ANA WU DIGITAL SCREEN BILATERAL Roni Dahl MD [address] [place] [address] Referral ID Status Reason Start Date Expiration Date Visits Re quested Visits Authorized [id number] Closed 01/25/2022 01/25/2023 1 1 Specialty Diagnoses / Procedures Referred By Contac t Referred To Contact Radiology Diagnoses Renal cyst Procedures US RENAL LIMITED Yanelis Guzman MD [address] [facility], [address] [place] [address] Referral ID Status Reason Start Date Expiration Date Visits Re quested Visits Authorized [id number] Open 03/13/2023 03/12/2024 1 1 Specialty Diagnoses / Procedures Referred By Contac t Referred To Contact Audiology Diagnoses Hearing loss, unspecified hearing loss type, unspecified laterality Grayson Hutchinson Jr., DO [address] [place] [address] Mary Sue, AuD [address] [place] [address] Referral ID Status Reason Start Date Expiration Date V isits Requested Visits Authorized [id number] Closed Specialty Services Required/Flower ent's Best Interest 05/02/2023 05/01/2024 1 1 Specialty Diagnoses / Procedures Referred By Contac t Referred To Contact Cardiology Diagnoses New onset atrial fibrillation (HCC) Atrial fibrillation with RVR (HCC) Procedures 66518 - MS Single/Multiple Event Recorder Lexy Tapia MD [address] [place] [address] Referral ID Status Reason Start Date Expiration Date Visits Re quested Visits Authorized [id number] Open 10/23/2023 10/22/2024 1 1 Referral ID Status Reason Start Date Expiration Date Visits Re quested Visits Authorized [id number] Closed 04/24/2024 04/24/2025 1 1 Specialty Diagnoses / Procedures Referred By Contac t Referred To Contact Cardiology Diagnoses Essential hypertension Palpitations Hyperlipidemia, unspecified hyperlipidemia type Hypothyroidism, unspecified type Vitamin D deficiency disease Procedures EKG 12 Lead Reagan Pascal MD [address] [place] [address] Referral ID Status Reason Start Date Expiration Date V isits Requested Visits Authorized [id number] Pending Review 09/01/2024 09/01/2025 1 1 Chief [...] section and content) DATE CREATED AUTHOR 12/24/2017 [facility] DATE CREATED AUTHOR AUTHOR'S ORGANIZ ATION 03/27/2018 [facility] DATE CREATED AUTHOR AUTHOR'S ORGANIZ ATION 07/13/2021 [facility] DATE CREATED AUTHOR AUTHOR'S ORGANIZ ATION 04/13/2023 [facility] DATE CREATED AUTHOR AUTHOR'S ORGANIZ ATION 05/06/2023 [facility] DATE CREATED AUTHOR AUTHOR'S ORGANIZ ATION 01/17/2024 [facility] DATE CREATED AUTHOR AUTHOR'S ORGANIZ ATION 08/31/2024 [facility] DATE CREATED AUTHOR AUTHOR'S ORGANIZ ATION 09/20/2024 [facility] DATE CREATED AUTHOR AUTHOR'S ORGANIZ ATION 11/28/2024 [facility] DATE CREATED AUTHOR AUTHOR'S ORGANIZ ATION 12/23/2024 [facility] DATE CREATED AUTHOR AUTHOR'S ORGANIZ ATION 02/10/2025 [facility] DATE CREATED AUTHOR AUTHOR'S ORGANIZ ATION 02/17/2025 [facility] Reason for Visit (unrecogniz ed section [...] DIGITAL SCREEN BILAT Roni Dahl MD [address] [place] [address] [facility] [address] [place] [address] Reason Comments Illness Pt has not been [...] DIGITAL SCREEN BILATERAL Roni Dahl MD [address] [place] [address] [facility] [address] [place] [address] Status Reason Specialty Diagnoses / Procedures Referred By Contact Referred To Contact Open Physical Therapy Diagnoses Shoulder pain, right Procedures physical therapy Christian Meyer, DO [address] [place] [address] Zo Chen, PT [address] [place] [address] Specialty Diagnoses / Procedures Referred By Juan Manuel garibay Referred To Contact Physical Therapy Diagnoses Shoulder pain, right Procedures physical therapy Christian Meyer, DO [address] [place] [address] Glynn Zo, PT [address] [place] [address] Referral ID Status Reason Start Date Expiration Date Visits Re quested Visits Authorized [id number] Open 04/28/2021 04/28/2022 99 99 Reason Comments Urinary Tract Infection Pt states that s he has been having painful urination x 10 days. Specialty Diagnoses / Procedures Referred By Juan Manuel garibay Referred To Contact Radiology Diagnoses Visit for screening mammogram Procedures [facility] WU DIGITAL SCREEN BILATERAL Roni Dahl MD [address] [place] [address] Referral ID Status Reason Start Date Expiration Date Visits Re quested Visits Authorized [id number] Closed 01/25/2022 01/25/2023 1 1 Reason Comments [...] working in the garden. Patient seen at [facility] this past Saturday and given cortisone/ muscle relaxer. Patient unable to relieve pain. Specialty Diagnoses / Procedures Referred By Juan Manuel garibay Referred To Contact Radiology Diagnoses Renal cyst Procedures US RENAL LIMITED Yanelis Guzman MD [address] [facility], [address] [place] [address] Referral ID Status Reason Start Date Expiration Date Visits Re quested Visits Authorized [id number] Open 03/13/2023 03/12/2024 1 1 Reason Comments Otitis Media MINE SHIFTER, referral from [facility] for otitis media. Patient states she has had left ear infections for most of her life. She was treated for ear infection with Augmentin in October. 3 weeks ago, woke up with extreme pain and was treated again for b/l ear infection. She returned to [facility] and was told that her ear was still infected. Last hearing test several years ago in [place]. 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 Saw [facility] in 2019. Specialty Diagnoses / Procedures Referred By Juan Manuel garibay Referred To Contact Otolaryngology Diagnoses Acute suppurative otitis media of left ear without spontaneous rupture of tympanic membrane, recurrence not specified Andre Rowe, [facility] [address] [place] [address] Grayson Hutchinson Jr., DO [address] [place] [address] Referral ID Status Reason Start Date Expiration Date V isits Requested Visits Authorized [id number] Closed Specialty Services Required/Flower ent's Best Interest 04/24/2023 04/23/2024 1 1 Specialty Diagnoses / Procedures Referred By Juan Manuel garibay Referred To Contact Audiology Diagnoses Hearing loss, unspecified hearing loss type, unspecified laterality Grayson Hutchinson Jr., DO [address] [place] [address] Mary Sue, AuD [address] [place] [address] Referral ID Status Reason Start Date Expiration Date V isits Requested Visits Authorized [id number] Closed Specialty Services Required/Flower ent's Best Interest [...] Expiration Date Visits Re quested Visits Authorized [id number] Closed 04/24/2024 04/24/2025 1 1 Reason Comments [...] Start Date End Da te nystatin (MYCOSTATIN) 664023 UNIT/ML suspension Take 5 mLs by mouth 4 times daily Swish and swallow. 200 mL 0 11/25/2022 amoxicillin-clavulanate (AUGMENTIN) 875-125 MG per tablet Take 1 tablet by mouth 2 times daily for 10 days 20 tablet 0 11/25/2022 12/05/2022 nystatin (MYCOSTATIN) [id number] UNIT/ML suspension Take 5 mLs by mouth [...] Care Teams (unrecognized sec tion and content) Home Care Aide Relationship Specialty Start Date End Date Roni Dahl MD [address] [place] [address] PCP - General 07/15/12 Home Care Aide Relationship Specialty Start Date End Date Roni Dahl MD [address] [place] [address] PCP - General 07/15/12 Home Care Aide Relationship Specialty Start Date End Date Roni Dahl MD [address] [place] [address] PCP - General 07/15/12 Home Care Aide Relationship Specialty Start Date End Date Roni Dahl MD [address] [place] [address] PCP - General 07/15/12 Home Care Aide Relationship Specialty Start Date End Date Roni Dahl MD [address] [place] [address] PCP - General 07/15/12 Home Care Aide Relationship Specialty Start Date End Date Roni Dahl MD [address] [place] [address] PCP - General 07/15/12 Home Care Aide Relationship Specialty Start Date End Date Roni Dahl MD [address] [place] [address] PCP - General 07/15/12 Home Care Aide Relationship Specialty Start Date End Date Roni Dahl MD [address] [place] [address] PCP - General 07/15/12 Home Care Aide Relationship Specialty Start Date End Date Roni Dahl MD [address] [place] [address] PCP - General 07/15/12 Home Care Aide Relationship Specialty Start Date End Date Roni Dahl MD [address] [place] [address] PCP - General 07/15/12 Home Care Aide Relationship Specialty Start Date End Date Roni Dahl MD [address] [place] [address] PCP - General 07/15/12 Home Care Aide Relationship Specialty Start Date End Date Roni Dahl MD [address] [place] [address] PCP - General 07/15/12 Team Status: Inactive [...] Active Yanelis Garcia MD Attending Provider Active Home Care Aide Relationship Specialty Start Date End Date Roni Dahl MD [address] [place], [place] [phone] PCP - General 07/15/12 Home Care Aide Relationship Specialty Start Date End Date Roni Dahl MD [address] [place], [place] [phone] PCP - General 07/15/12 Home Care Aide Relationship Specialty Start Date End Date Roni Dahl MD [address] [place], [place] [phone] PCP - General 07/15/12 Home Care Aide Relationship Specialty Start Date End Date Roni Dahl MD [address] [place], [place] [phone] PCP - General 07/15/12 Home Care Aide Relationship Specialty Start Date End Date Roni Dahl MD [address] [place] [address] PCP - General 07/15/12 Team Status: Inactive Member Role Status Dates Roni Dahl MD Primary Care Provider Active Jesus Vasquez APRN Emergency Provider Active Home Care Aide Relationship Specialty Start Date End Date Roni Dahl MD [address] [place] [address] PCP - General 07/15/12 Team Status: Inactive Member Role Status Dates Roni Dahl MD Primary Care Provider Active Mukul Wilson MD Attending Provider Active Home Care Aide Relationship Specialty Start Date End Date Roni Dahl MD [address] [place] [phone] PCP - General 07/15/12 Home Care Aide Relationship Specialty Start Date End Date Roni Dahl MD [address] [place] [id number] PCP - [facility] 04/24/23 Home Care Aide Relationship Specialty Start Date End Date Roni Dahl MD [address] [place] [id number] PCP - [facility] 04/24/23 Team Status: Inactive Member Role Status Dates Roni Dahl MD Primary Care Provider Active Obie Hylton MD Attending Provider Active Home Care Aide Relationship Specialty Start Date End Date Roni Dahl MD [address] [place] [phone] PCP [facility] 07/15/12 Team Status: Inactive Member Role Status Dates Roni Dahl MD Primary Care Provider Active Start: September 19, 2023 End: September 19, 2023 DENISHA Cedeño Attending Provider Active Start: September 19, 2023 End: September 19, 2023 Home Care Aide Relationship Specialty Start Date End Date Roni Dahl MD [address] [place] [phone] PCP - General 07/15/12 Home Care Aide Relationship Specialty Start Date End Date Roni Dahl MD [address] [place] [address] PCP - General 07/15/12 Team Status: Inactive [...] February 06, 2024 End: February 06, 2024 Home Care Aide Relationship Specialty Start Date End Date Roni Dahl MD [address] [place], [place] [phone] PCP - General 07/15/12 Home Care Aide Relationship Specialty Start Date End Date Roni Dahl MD [address] [place], [place] [phone] PCP - General 07/15/12 Team Status: Inactive Member Role Status Dates Roni Dahl MD Primary Care Provider Active Start: August 11, 2024 End: August 11, 2024 Obie Hylton MD Attending Provider Active St art: August 11, 2024 End: August 11, 2024 Home Care Aide Relationship Specialty Start Date End Date Roni Dahl MD [address] [place] [address] PCP - General Family Medicine 08/17/24 Home Care Aide Relationship Specialty Start Date End Date Roni Dahl MD [address] [place] [address] PCP - General Family Medicine 08/17/24 Home Care Aide Relationship Specialty Start Date End Date Roni Dahl MD [address] [place] [address] PCP - General 07/15/12 Home Care Aide Relationship Specialty Start Date End Date Roni Dahl MD [address] [place] [phone] PCP - General 07/15/12 Home Care Aide Relationship Specialty Start Date End Date Roni Dahl MD [address] [place] [phone] PCP - General 07/15/12 Team Status: Inactive Member Role Status Dates Roni Dahl MD Primary Care Provider Active Start: September 10, 2024 End: September 10, 2024 Nuvia Sanchez NP-C Attending Provider Active Start: September 10, 2024 End: September 10, 2024 Home Care Aide Relationship Specialty Start Date End Date Roni Dahl MD [address] [place] [phone] PCP - General Family Medicine 08/17/24 Home Care Aide Relationship Specialty Start Date End Date Roni Dahl MD [address] [place] [phone] PCP - General Family Medicine 08/17/24 Home Care Aide Relationship Specialty Start Date End Date Roni Dahl MD [address] [place] [address] PCP - General 07/15/12 Home Care Aide Relationship Specialty Start Date End Date Roni Dahl MD [address] [place] [id number] PCP - General Family Medicine 04/24/23 Home Care Aide Relationship Specialty Start Date End Date Roni Dahl MD [address] [place] [address] PCP - General Family Medicine 04/24/23 Goals [...] BE BASED ON THE PRIMARY CLINICAL RECORDS. [employer] [facility] provides no warranty or guarantee of the accuracy or completeness of information in this document.
[2025-02-22 11:19] VITALS: BP 139/73; PULSE 68; TEMP 36.2; O2SAT 99
[2025-02-22 11:46] VITALS: BP 149/67; BP 149/72; PULSE 61; PULSE 62; O2SAT 97; O2SAT 99
[2025-02-22] MEDS: TRIAMCINOLONE ACETONIDE 40 MG/ML VIAL INJ (11:48)
[2025-02-22] MEDS: 0.9 % SODIUM CHLORIDE 10 ML SYRINGE - SALINE FLUSH 2 ML INJ (11:49)
[2025-02-22] MEDS: IOHEXOL 240 MG/ML - 50 ML VIAL 24 MG INJ (11:49)
[2025-02-22] MEDS: LIDOCAINE HCL 2% PF 100 MG/5 ML VIAL 3 ML INJ (11:49)
[2025-02-22] MEDS: BUPIVACAINE HCL 0.25% PF 25 MG/10 ML VIAL 2 ML INJ (11:49)
--- NOTE | 2025-02-22 11:53 | W.PM.PROCNOT ---
Date of procedure: 02/22/25 Pre-op diagnosis: Pain due to right sciatica Post-op diagnosis: same as pre-op Procedure: Procedure: Right sciatic nerve block Medications: Bupivacaine 0.25% 4cc, depomedrol 40mg The patient was seen and examined in the preoperative holding area.? The site was marked.? Informed consent was obtained and placed on the chart.? The patient was brought to the medical procedures unit and placed in the prone position when a timeout was completed verifying correct patient, procedure, site, positioning, and planned special equipment.? The area overlying the femoral neck of the right side was prepped and draped using aseptic equipment.? A 22-gauge, 6-inch Stimuplex needle was advanced through a skin wheal of 2% lidocaine, emitting 2 mA of current at 2 Hz.? The needle tip was advanced under fluoroscopic visualization until plantarflexion was achieved at which point Omnipaque dye was injected.? This showed adequate spread.? There was no evidence of neurovascular uptake.? The above-mentioned injectate was placed in two 2.5 mL aliquots preceded by negative aspiration without sequelae.? The needle was removed.? The insertion site was covered.? The patient was taken to the postprocedural recovery area where the patient was monitored for the appropriate length of time before being found suitable for discharge in the accompaniment of a responsible adult. Anesthesia: Local Surgeon: Trevon Harris Pathology: none sent Condition: stable Disposition: no change
== END 2025-02-22 11:56 | disposition home or self-care (01) ==
LOC: SURGOUT 10:57
PROVIDERS: PCP Family Medicine; Visit Provider Anesthesiology
DX: M54.31 Sciatica, right side (principal)
CPT/HCPCS: 64445; J0665; J3301; Q9966

== ENCOUNTER 2025-03-18 13:22 | Outpatient (OUT) | payer MEDICARE, SELFPAY ==
--- OUTSIDE RECORDS SUMMARY | 2025-03-18 13:24 | XMS_ITS | Encounter Summary ---
Author Organization [employer] Address [address] [place] [address] Care Team Providers Care Brand Ambassador Promotional Model Name Role Phone Rocio Dahl MD Primary Care Provider [phone] Encounter Details Date Type Department Care Team (Late st Contact Info) Description 03/29/2022 Legacy Encounter [place] Legacy Dept Provider, Legacy Conversion Social History [...] do you have left? 5 Preferred Pharmacy? [facility] Pharmacy phone number (if available)? [phone] Additional Information for Provider? patient states the pharmacy has received any response from your office CALL BACK INFO What is the best way for the office to contact you? OK to leave message on voicemail Preferred Call Back Phone Number? [phone] SCRIPT ANSWERS Relationship to Patient? Self EDT documented in this encounter Plan of Treatment Not on file documented as of this encounter Visit Diagnoses Not on filedocumented in this encounter Care Teams Brand Ambassador Promotional Model Relationship Specialty Start Date End Date Rocio Dahl MD [address] [place] [address] PCP - General 03/08/17 documented as of this encounter
--- OUTSIDE RECORDS SUMMARY | 2025-03-18 13:24 | XMS_ITS | Encounter Summary ---
Author Organization [employer] Address [address] [place] [address] Care Team Providers Care Direct Care Counselor Name Role Phone Rocio Dahl MD Primary Care Provider [phone] Encounter Details Date Type Department Care Team (Late st Contact Info) Description 01/23/2021 Legacy Encounter [facility] Legacy Dept Provider, Legacy Conversion Social [...] on filedocumented in this encounter Care Teams Direct Care Counselor Relationship Specialty Start Date End Date Rocio Dahl MD [address] [place] [address] PCP - General 03/08/17 documented as of this encounter
--- OUTSIDE RECORDS SUMMARY | 2025-03-18 13:24 | XMS_ITS | Clinical Summary ---
Author Organization [employer] Address [address] [place] [address] Care Team Providers Care Account Technician Name Role Phone Rocio Dahl MD Primary Care Provider [phone] Active Problems Problem Noted Date Diagnosed Date [...] Family History Medical History Relation Name Comments [id number] Father age 23 accident Diabetes Mother age 73 Heart disease Mother age 73 [id number] Sister scleroderma Relation Name Status Comments Father [...] Last Done Comments Bone Density Scan 1945 DTaP/Tdap/Td Vaccines (1 - Tdap) 12/19/1963 RSV Immunization for Adults (1 - 1-dose 75+ series) 12/19/2019 COVID-19 Vaccine (2 - season) 2025 06/27/2021 Influenza Vaccine (#1) 2025 , 03/15/2020, 03/15/2020, Additional history exists Pneumococcal Vaccine: 50+ [...] on patient's age to complete this topic Care Teams Account Technician Relationship Specialty Start Date End Date Rocio Dahl MD [address] [place] [address] PCP - General 03/08/17
--- OUTSIDE RECORDS SUMMARY | 2025-03-18 13:24 | XMS_ITS | Encounter Summary ---
Author Organization [employer] Address [facility] [place] [address] Care Team Providers Care Office Specialist Name Role Phone Rocio Dahl MD Primary Care Provider [phone] Encounter Details Date Type Department Care Team (Late st Contact Info) Description 11/23/2021 Legacy Encounter [facility] Legacy Dept Provider, Legacy Conversion [...] on filedocumented in this encounter Care Teams Office Specialist Relationship Specialty Start Date End Date Rocio Dahl MD [address] [place] [address] PCP - General 03/08/17 documented as of this encounter
--- OUTSIDE RECORDS SUMMARY | 2025-03-18 13:24 | XMS_ITS | Encounter Summary ---
Author Organization [employer] Address [address] [place] [address] Care Team Providers Care Polishing Wheel Repairer Name Role Phone Rocio Dahl MD Primary Care Provider [phone] Encounter Details Date Type Department Care Team [...] on filedocumented in this encounter Care Teams Polishing Wheel Repairer Relationship Specialty Start Date End Date Rocio Dahl MD [address] [place], [place] [address] PCP - General 03/08/17 documented as of this encounter
--- OUTSIDE RECORDS SUMMARY | 2025-03-18 13:24 | XMS_ITS | Encounter Summary ---
Author Organization [employer] Address [address] [place] [address] Care Team Providers Care Kettleman Name Role Phone Rocio Dahl MD Primary Care Provider [phone] Encounter Details Date Type Department Care Team [...] on filedocumented in this encounter Care Teams Kettleman Relationship Specialty Start Date End Date Rocio Dahl MD [address] [place] [address] PCP - General 03/08/17 documented as of this encounter
--- OUTSIDE RECORDS SUMMARY | 2025-03-18 13:24 | XMS_ITS | Clinical Summary ---
Author Organization [facility] Address [address] [place] [address] Care Team Providers Care Fleet Manager/Dispatch Name Role Phone Rocio Dahl MD Primary Care Provider [phone] Allergies Active Allergy Reactions Criticality Noted Date [...] take two tablet daily 0 7 Active lansoprazole(UT EVACID 15 MG CAP) take one tablet daily 0 7 Active sertraline hcl(ZOLOFT 50 MG TAB) take one and one half tablet HS 0 5 Active ALPRAZOLAM 0.5 MG TAB take one or two tablets at HS 0 8 Active rizatriptan benzoate(MAXALT 10 MG TAB) take with migraines 0 7 Active psyllium husk(METAMUCIL 0.52 G CAP) take as directed 0 7 Active calcium/mag/vit ngero d2/zn/min(ASHLY-M AG ZINC II ORAL SUSP) take [...] N ot on file 06/06/2020 Data from: https://www.neighborhoodatlas.medicine.[facility].edu/. Last address used for calculation Not [...] 07/2010 Insurance MEDICARE NEW [employer] LIFE SUPPLEMENT Health [facility] Address: [address] [place] [phone] Care Teams Fleet Manager/Dispatch Relationship Specialty Start Date End Date Rocio Dahl MD PCP - General 05/05/07
--- OUTSIDE RECORDS SUMMARY | 2025-03-18 13:24 | XMS_ITS | Encounter Summary ---
Author Organization [facility] Address [address] [place] [address] Care Team Providers Care Cafe Attendant Name Role Phone Rocio Dahl MD Primary Care Provider Encounter Details Date Type Department Care Team (Late st Contact Info) Description 05/15/2021 Legacy Encounter [facility] Legacy Dept Provider, Legacy Conversion Social History [...] EST protonix 20 mg Mail order to [facility] Mary Jane has been trying to [...] Tani 08/02/2021 9:40 AM MD TANI Valdez [facility] 09/04/2021 9:30 AM MD Tani Cruz [facility] Patient Active Problem List: Hyperlipidemia Migraine [...] on filedocumented in this encounter Care Teams Cafe Attendant Relationship Specialty Start Date End Date Rocio Dahl MD [address] [place] [address] PCP - General 03/08/17 documented as of this encounter
--- OUTSIDE RECORDS SUMMARY | 2025-03-18 13:24 | XMS_ITS | Encounter Summary ---
Author Organization [employer] [facility] Address [address] [place] [address] Care Team Providers Care Chairman Ceo Name Role Phone Rocio Dahl MD Primary Care Provider Encounter Details Date Type Department Care Team (Late st Contact Info) Description 06/02/2021 Legacy Encounter [facility] Legacy Dept Provider, Legacy Conversion Social [...] EST Famotidine 20 mg Mail order to [facility] She said ever since her colonoscopy she [...] Tani 08/02/2021 9:40 AM MD TANI Valdez [facility] 09/04/2021 9:30 AM MD Tani Cruz [facility] Patient Active Problem List: Hyperlipidemia Migraine Hypothyroidism [...] on filedocumented in this encounter Care Teams Chairman Ceo Relationship Specialty Start Date End Date Rocio Dahl MD [address] [place] [address] PCP - General 03/08/17 documented as of this encounter
--- OUTSIDE RECORDS SUMMARY | 2025-03-18 13:25 | XMS_ITS | Encounter Summary ---
Author Organization [facility] Address [address] [place] [address] Care Team Providers Care Cognos Lead Name Role Phone Rocio Dahl MD Primary Care Provider [phone] Source Comments In the event this information is protected by the Federal Confidentiality of Alcohol and Drug AbusePatient Records regulations: The Federal rules restrict any use of the information to criminally investigate or prosecute any alcohol or drug abuse patient.[facility] Encounter Details Date Type Department Care Team (Late st Contact Info) Description 02/13/2018 Abstract Neurology [address] [place], [place] [id number] (Historical), Unknown Social History Tobacco Use Types [...] on filedocumented in this encounter Care Teams Cognos Lead Relationship Specialty Start Date End Date Rocio Dahl MD PCP - General 05/05/07 documented as of this encounter
--- OUTSIDE RECORDS SUMMARY | 2025-03-18 13:25 | XMS_ITS | Encounter Summary ---
Author Organization [facility] Address [address] [place] [address] Care Team Providers Care Mold Stamper Name Role Phone Rocio Dahl MD Primary Care Provider [phone] Encounter Details Date Type Department Care Team (Late st Contact Info) Description 11/25/2018 Scanned Document [facility] Legacy Dept Provider, [...] on filedocumented in this encounter Care Teams Mold Stamper Relationship Specialty Start Date End Date Rocio Dahl MD [address] [place], [place] [phone] PCP - General 03/08/17 documented as of this encounter
--- OUTSIDE RECORDS SUMMARY | 2025-03-18 13:25 | XMS_ITS | Encounter Summary ---
Author Organization [employer] [facility] Address [address] [place] [address] Care Team Providers Care Java Programmer Name Role Phone Rocio Dahl MD Primary Care Provider [phone] Encounter Details Date Type Department Care Team (Late st Contact Info) Description 02/11/2020 Legacy Encounter [facility] Legacy Dept Provider, Legacy Conversion [...] on filedocumented in this encounter Care Teams Java Programmer Relationship Specialty Start Date End Date Rocio Dahl MD [address] [place] [address] PCP - General 03/08/17 documented as of this encounter
--- OUTSIDE RECORDS SUMMARY | 2025-03-18 13:25 | XMS_ITS | Encounter Summary ---
Author Organization [employer] [facility] Address [address] [place] [address] Care Team Providers Care Viticulture Teacher Name Role Phone Rocio Dahl MD Primary Care Provider [phone] Encounter Details Date Type Department Care Team (Late st Contact Info) Description 07/12/2020 Legacy Encounter [facility] Legacy Dept Provider, Legacy Conversion Social [...] on filedocumented in this encounter Care Teams Viticulture Teacher Relationship Specialty Start Date End Date Rocio Dahl MD [address] [place], [place] [phone] PCP - General 03/08/17 documented as of this encounter
--- OUTSIDE RECORDS SUMMARY | 2025-03-18 13:25 | XMS_ITS | Encounter Summary ---
Author Organization [facility] Address [address] [place] [address] Care Team Providers Care Buttoner Name Role Phone Rocio Dahl MD Primary Care Provider [phone] Reason for Referral * Evaluate and Treat (Routine) - Closed Specialty Diagnoses / Procedures Referred By Contac t Referred To Contact Otolaryngology Diagnoses Acute suppurative otitis media of left ear without spontaneous rupture of tympanic membrane, recurrence not specified Pastora Flores, SUPERVISOR BOTTLE MACHINES [address] [place] [address] Phone: tel: fax: Grayson Hutchinson Jr., [address] [place] [address] Phone: tel: fax:[phone] Referral ID Status Reason Start Date Expiration Date V isits Requested Visits Authorized [id number] Closed Specialty Services Required/[facility] ent's Best Interest 04/24/2023 04/23/2024 1 1 Encounter Details Date Type Department Care Team (Latest Contact Info) Description 04/24/2023 Transcribe Orders [facility] [address] [place] [address] Grayson Hutchinson Jr., DO [address] [place] [address] (Fax) Acute suppurative otitis media of left [...] Primary documented in this encounter Care Teams Buttoner Relationship Specialty Start Date End Date Rocio Dahl MD [address] [place] [address] PCP - General Family Medicine 04/24/23 documented as of this encounter
--- OUTSIDE RECORDS SUMMARY | 2025-03-18 13:25 | XMS_ITS | Encounter Summary ---
Author Organization [employer] Address [address] [place] [address] Care Team Providers Care Karate Black Belt Name Role Phone Rocio Dahl MD Primary Care Provider [phone] Encounter Details Date Type Department Care Team (Late st Contact Info) Description 01/03/2021 Legacy Encounter [facility] Legacy Dept Provider, Legacy Conversion [...] on filedocumented in this encounter Care Teams Karate Black Belt Relationship Specialty Start Date End Date Rocio Dahl MD [address] [place] [address] PCP - General 03/08/17 documented as of this encounter
--- OUTSIDE RECORDS SUMMARY | 2025-03-18 13:25 | XMS_ITS | Clinical Summary ---
Author Organization [facility] Address [address] [place] [address] Phone Care Team Providers Care Agricultural Science Professor Name Role Phone Unavailable Primary Care Provider [...]
--- OUTSIDE RECORDS SUMMARY | 2025-03-18 13:25 | XMS_ITS | Encounter Summary ---
Author Organization [facility] Address [address] [place] [address] Care Team Providers Care Platen Press Operator Apprentice Name Role Phone Rocio Dahl MD Primary Care Provider [phone] Encounter Details Date Type Department Care Team (Late st Contact Info) Description 02/11/2018 Scanned Document [facility] Legacy Dept Provider, Legacy Conversion Social [...] on filedocumented in this encounter Care Teams Platen Press Operator Apprentice Relationship Specialty Start Date End Date Rocio Dahl MD [address] [place], [place] [phone] PCP - General 03/08/17 documented as of this encounter
--- OUTSIDE RECORDS SUMMARY | 2025-03-18 13:25 | XMS_ITS | Encounter Summary ---
Author Organization [facility] Address [address] [place] [address] Care Team Providers Care Junior Oracle Dba Name Role Phone Rocio Dahl MD Primary Care Provider [phone] Encounter Details Date Type Department Care Team [...] on filedocumented in this encounter Care Teams Junior Oracle Dba Relationship Specialty Start Date End Date Rocio Dahl MD [address] [place] [address] PCP - General 03/08/17 documented as of this encounter
--- OUTSIDE RECORDS SUMMARY | 2025-03-18 13:25 | XMS_ITS | Encounter Summary ---
Author Organization [facility] Address [address] [place] [address] Care Team Providers Care Factory Maintenance Technician Name Role Phone Rocio Dahl MD Primary Care Provider [phone] Source Comments In the event this information is protected by the Federal Confidentiality of Alcohol and Drug AbusePatient Records regulations: The Federal rules restrict any use of the information to criminally investigate or prosecute any alcohol or drug abuse patient.[facility] Encounter Details Date Type Department Care Team (Late st Contact Info) Description 03/12/2018 Get Medical Advice [facility] [address] [phone] Andrews Fish MD [address] [place] [address] RE: Visit Follow Up Question [...] on filedocumented in this encounter Care Teams Factory Maintenance Technician Relationship Specialty Start Date End Date Rocio Dahl MD PCP - General 05/05/07 documented as of this encounter
--- OUTSIDE RECORDS SUMMARY | 2025-03-18 13:25 | XMS_ITS | Encounter Summary ---
Author Organization [facility] Address [address] [place] [address] Care Team Providers Care Vegetable I Farmworker Name Role Phone Rocio Dahl MD Primary Care Provider [phone] Encounter Details Date Type Department Care Team (Late st Contact Info) Description 11/24/2019 Legacy Encounter [facility] [...] on filedocumented in this encounter Care Teams Vegetable I Farmworker Relationship Specialty Start Date End Date Rocio Dahl MD [address] [place] [address] PCP - General 9/8/17 documented as of this encounter
--- OUTSIDE RECORDS SUMMARY | 2025-03-18 13:25 | XMS_ITS | Clinical Summary ---
Author Organization [facility] Address [address] [place] [address] Care Team Providers Care Sales & Service Associate Name Role Phone Rocio Dahl MD Primary Care Provider [phone] Allergies Active Allergy Reactions Criticality Noted Date [...] . 30 g 01/16/20 25 026 Active Active Problems Problem Noted Date Diagnosed Date Acute suppurative otitis med ia of left ear without spontaneous rupture of tympanic membrane 05/02/2023 ROSETTE on CPAP 05/02/2023 Bruxism (teeth grinding) 05/02/2023 Hearing loss 05/02/2023 Encounters Date Type Department Care Team Description 02/05/2025 10:00 AM EDT Office Visit [facility] [place] [address] [id number] Cinthya Fortune PA-C Cough, unspecified type (Primary Dx); Sore throat; Nasal congestion 01/15/2025 9:15 AM EDT Office Visit [facility] Urgent [facility] [address] [id number] Angelito Toribio PA-C Bacterial URI (Primary Dx); [...] series) 12/19/2019 Tetanus: Every 10yrs 12/31/2023 12/30/2013 Medicare Wellness Visit 05/06/2024 05/06/20 23, 05/03/2022, 05/02/2021, Additional history exists COVID-19 Vaccine (2024-2 6 season) 2025 05/08/2022, 06/27/2021, 08/26/2020, Additional history exists Influenza Vaccine (#1) 2025 [...] process. Workstation ID: [id number] Cinthya Fortune PA-C [facility] Final Result from Last 3 Months Insurance MEDICARE PART A & B Member Subscriber Plan / Payer (Ef fective 2009-Present) Name:Mis Jeffersonbianca Payan Member ID:[id number] Relation to Subscriber:Self Name:iMs Jeffersonbianca Payan Subscriber ID:[id number] Payer ID:Not on file Group ID:Not on file Type:Not on file Address: [facility] [place] PART A CLAIMS [address] [address] [place] [address] [facility] Care Teams Sales & Service Associate Relationship Specialty Start Date End Date Rocio Dahl MD [address] [place] [address] PCP - General Family Medicine 04/24/23
--- OUTSIDE RECORDS SUMMARY | 2025-03-18 13:25 | XMS_ITS | Encounter Summary ---
Author Organization [facility] Address [address] [place] [address] Care Team Providers Care Residential Interior Designer Name Role Phone Rocio Dahl MD Primary Care Provider [phone] Source Comments In the event this information is protected by the Federal Confidentiality of Alcohol and Drug AbusePatient Records regulations: The Federal rules restrict any use of the information to criminally investigate or prosecute any alcohol or drug abuse patient.[facility] Encounter Details Date Type Department Care Team (Late st Contact Info) Description 03/17/2018 Get Medical Advice [facility] [address] [phone] Andrews Fish MD [address] [place] [address] RE: Visit Follow Up Question [...] on filedocumented in this encounter Care Teams Residential Interior Designer Relationship Specialty Start Date End Date Rocio Dahl MD PCP - General 05/05/07 documented as of this encounter
--- OUTSIDE RECORDS SUMMARY | 2025-03-18 13:25 | XMS_ITS | Clinical Summary ---
Author Organization [facility] Address [address] [place] [address] Care Team Providers Care Sign Manufacturer Name Role Phone Rocio Dahl MD Primary Care Provider [phone] Allergies Active Allergy Reactions Criticality Noted Date [...] 02/08/2011 Hypothyroidism 02/08/2011 Diverticulitis 02/08/2011 Migraine 02/08/2011 Family History Medical History Relation Name Comments [...] Last Done Comments Influenza Vaccine (#1) 2025 , 05/06/2023, 05/03/2022, Additional history exists Pneumococcal Vaccine: 65+ Years Completed 6, 03/31/2011 Insurance [employer] MEDICARE Care Teams Sign Manufacturer Relationship Specialty Start Date End Date Rocio Dahl MD [address] [place] [address] PCP - General Family Medicine 08/17/24
--- OUTSIDE RECORDS SUMMARY | 2025-03-18 13:25 | XMS_ITS | Clinical Summary ---
Author Organization [facility] Address [id number] [address] [place] [address] Care Team Providers Care Manufacturer Representative Name Role Phone Rocio Dahl MD Primary Care Provider [phone] Allergies Active Allergy Reactions Criticality Noted Date [...] on file Insurance MEDICARE COMMERCIAL Care Teams Manufacturer Representative Relationship Specialty Start Date End Date Rocio Dahl MD [address] [place] [address] PCP - General Family Medicine 04/19/18
--- OUTSIDE RECORDS SUMMARY | 2025-03-18 13:25 | XMS_ITS | Encounter Summary ---
Author Organization [employer] Address [address] [place] [address] Care Team Providers Care Lean Engineer Name Role Phone Rocio Dahl MD Primary Care Provider [phone] Encounter Details Date Type Department Care Team (Late st Contact Info) Description 07/11/2020 Legacy Encounter [facility] Legacy Dept Provider, Legacy Conversion Social [...] on filedocumented in this encounter Care Teams Lean Engineer Relationship Specialty Start Date End Date Rocio Dahl MD [address] [place] [address] PCP - General 9/8/17 documented as of this encounter
--- NOTE | 2025-03-18 13:38 | PM.CN ---
Consult Note: HPI Data of Consult Patient: known to practice within the last 3 years Consult date: 03/18/25 Requesting Physician: Gabrielle Boswell NP Primary Care Provider: Rocio Dahl MD Consult Narrative Reason for consult: right leg pain Narrative: Mary Jane Jefferson a pleasant 79 year old female presents for evaluation of chronic low back pain and right leg pain present >12 months unresponsive to > 6 weeks of PT/HEP, heat, ice, tylenol, cannot take NSAIDs on eliquis. pt noting increased right leg pain, numbness, tingling, and weakness. pain today 5/10 sharp stabbing increasing to 8/10 with standing, walking, lifting. utilizing tylenol PRN, tramadol prn. previously failed gabapentin and lyrica. notes mild relief from recent right sciatic nerve block, pt discouraged as previous sciatic nerve block with Dr Cramer worked really well. pt not interestd in scs trial at this time due too a recent move, unpacking, taking care of her /appointments. cc:: CC: Gabrielle Boswell NP [facility] Medical History Irregular heartbeat ?I49.9 - Cardiac arrhythmia, unspecified (ICD-10) Sleep apnea ?G47.30 - Sleep apnea, unspecified (ICD-10) Hiatal hernia ?K44.9 - Diaphragmatic hernia without obstruction or gangrene (ICD-10) Acid reflux ?K21.9 - Gastro-esophageal reflux disease without esophagitis (ICD-10) Osteoarthritis ?M19.90 - Unspecified osteoarthritis, unspecified site (ICD-10) TMJ (dislocation of temporomandibular joint) ?S03.00XA - Dislocation of jaw, unspecified side, initial encounter (ICD-10) Hypothyroid ?E03.9 - Hypothyroidism, unspecified (ICD-10) Surgical History History of bladder surgery ?Z98.890 - Other specified postprocedural states (ICD-10) History of knee replacement ?Z96.659 - Presence of unspecified artificial knee joint (ICD-10) History of hip replacement ?Z96.649 - Presence of unspecified artificial hip joint (ICD-10) History of cholecystectomy ?Z90.49 - Acquired absence of other specified parts of digestive tract (ICD-10) History of ankle surgery ?Z98.890 - Other specified postprocedural states (ICD-10) H/O: hysterectomy ?Z90.710 - Acquired absence of both cervix and uterus (ICD-10) H/O hernia repair ?Z98.890 - Other specified postprocedural states (ICD-10) ?Z87.19 - Personal history of other diseases of the digestive system (ICD-10) Meds Home Medications and Allergies Home Medications ?Medication ?Instructions ?Recorded ?Confirmed ?Type aspirin 81 mg capsule 81 mg PO DAILY 08/26/23 02/22/25 History calcium-magnesium 300 mg-300 mg 1 tab PO DAILY 08/26/23 02/22/25 History tablet cholecalciferol (vitamin D3) 50 50 mcg PO BID 08/26/23 02/22/25 History mcg (2,000 unit) capsule citalopram 20 mg tablet 20 mg PO DAILY 08/26/23 02/22/25 History cyanocobalamin (vitamin B-12) 1,000 mcg PO DAILY 08/26/23 02/22/25 History 1,000 mcg capsule docusate sodium 100 mg capsule 100 mg PO DAILY 08/26/23 02/22/25 History estradiol 0.01% (0.1 mg/gram) 1 g vaginal QWEEK 08/26/23 02/22/25 History vaginal cream fexofenadine 180 mg tablet 180 mg PO DAILY 08/26/23 02/22/25 History fluticasone propionate 50 1 spray intranasal DAILY PRN 08/26/23 02/22/25 History mcg/actuation nasal allergy symptoms spray,suspension levothyroxine 50 mcg capsule 50 mcg PO DAILY 08/26/23 02/22/25 History pilocarpine HCl 5 mg tablet 5 mg PO TID 08/26/23 02/22/25 History pravastatin 40 mg tablet 40 mg PO DAILY 08/26/23 02/22/25 History psyllium husk 0.4 gram capsule 0.4 g PO DAILY 08/26/23 02/22/25 History (Metamucil) topiramate 50 mg tablet 50 mg PO DAILY 08/26/23 02/22/25 History apixaban 5 mg tablet (Eliquis) 5 mg PO BID 02/03/24 02/22/25 History diltiazem HCl 120 mg 120 mg PO Q24H 03/25/24 02/22/25 History capsule,extended release 24 hr tramadol 50 mg tablet 50 mg PO BID PRN pain #14 tabs 08/12/24 02/22/25 Rx Allergies Allergy/AdvReac Type Severity Reaction Status Date / Time latex Allergy Irritable Verified 02/22/25 11:20 morphine Allergy Vomiting Verified 02/22/25 11:20 Sulfa (Sulfonamide Allergy Rash Verified 02/22/25 11:20 Antibiotics) Exam Constitutional Documenting provider has reviewed patient's vital signs: yes Common normals: no apparent distress, oriented x3, healthy appearing, alert and well nourished General appearance: cooperative HENMT Common normals: normocephalic, hearing grossly normal bilaterally and moist oral mucous membranes Head and scalp: normocephalic Eye Common normals: PERRL Pupil: PERRL Neck & C-Spine Common normals: full ROM General: normal visual inspection Chest Common normals: inspection of chest normal Respiratory Common normals: normal respiratory effort, no retractions and no use of accessory muscles Back & Pelvis Lumbar spine/lower back: ROM limited, pain with ROM and straight leg raise positive right Other: strength 5/5 in BLE increased pain right L5/S1 decreased sensation to right L5/S1 Extremity Common normals: normal to inspection and full ROM Neuro Common normals: oriented x3 Sensorium/orientation: alert Motor exam: strength 5/5 throughout and no movement abnormalities noted Psych Common normals: mental status grossly normal, thought process normal, cooperative, affect normal, speech normal and activity/motor behavior normal Speech: normal speech Thought process: normal thought process Results Additional Findings Additional findings: If on a controlled substance or opioids, I have checked an [place] report on this patient and there are no aberrancies noted in the prescribing history.??If on a controlled substance or opioid a drug screen was completed and reviewed within the last year, and if there has not been a drug screen completed we ordered one today to monitor higher risk, state monitored pain medication use. As part of providing excellent, safe, comprehensive care, the following was completed at our patient's visit: 1. A medication reconciliation and review to ensure accurate knowledge of current/active medications, including asking our patients to inform us about any [id number] medications or herbal remedies/nutritional supplements/alternative remedies. 2. A review to specifically ensure our patients have had annual screening for screening for depression, screening for tobacco use, and screening for unhealthy alcohol use. For concerning screenings had a discussion with the patient, provided patient education, and recommended follow-up with primary care provider when appropriate. If patient noted with a risk of falling, they received education on strength, gait, and balance training to prevent future risk of falling. Portions of this note may have been carried over from the previous visit and updated as appropriate. Please note this office utilizes paper charting in addition to the electronic medical record. A list of current medications, vitals, and PMH is available there as the clinical staff outside of myself do not have access to [employer] charting during the clinic day operations. As part of providing quality comprehensive care the current medications, vitals, and PMH were reviewed in the paper chart. Assessment and Plan Assessment and Plan (1) Right sided sciatica: Assessment and Plan: The patient has had over 3 months of moderate to severe low back and right leg pain with functional impairment and inadequate response to conservative care including NSAIDS (unless there are contraindication such as concurrent blood thinners), multiple oral or topical pain medications, and home exercise program/physical therapy.? Patient has completed >6 weeks of guided home exercise program and/or formal physical therapy program without relief of their symptoms.? (2) Lumbosacral radiculopathy: (3) Lumbar stenosis with neurogenic claudication: Plan right L5-S1 S1-S2 TFESI under fluoroscopy for sciatica and lumbosacral radiculopathy under fluoroscopy declining scs trial continue current medications continue HEP as tolerated f/u 2 weeks after TFESI
--- OUTSIDE RECORDS SUMMARY | 2025-03-18 13:40 | XMS_ITS | CCD ---
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 Name Role Phone JAMISON OWENS Unavailable Unavailable ANDREWS FISH Unavailable Unavailable LANIE PRINCE Unavailable Unavailable ANDREWS FISH Unavailable Unavailable Roni Dahl Primary Care Provider [phone] Roni Dahl Primary Care Provider [phone] Roni Dahl Primary Care Provider [phone] Roni Dahl MD Primary Care Provider Roni Dahl MD Primary Care Provider Roni Dahl MD Primary Care Provider RONI DAHL Primary Care Physician [phone] Roni Dahl MD Primary Care Provider MD [...] Care Provider MD Yanelis Garcia Attending Provider [phone] DILIP Vasquez Emergency Provider MD Mukul Wilson [...] Primary Care Provider DILIP Vasquez Emergency Provider [phone] MD Mukul Wilson Attending Provider MD Yanelis Garcia Attending Provider [phone] MD Obie Hylton Attending Provider MD Roni Dahl Primary Care Provider DENISHA Sanchez Attending Provider MD Roni Dahl Primary Care Provider MD Obie Hylton Attending Provider [phone] Davion Olivares Referring Unavaila Davion Malloy Attending Unavaila Davion Malloy Admitting Unavaila Davion Malloy Attending UnavailRoni Uribe MD Primary Care Provider Obie Hylton MD Attending Provider [phone] Roni Dahl MD Primary Care Provider REAGAN GIVENS Referring Unavailable VERHOFF, RONI L Primary Care [...] VERHOFF, RONI L Referring Unavailable VIGESAA, REAGAN S Referring Unavailable VERHOFF, RONI L Primary Care Unavailable VIGESAA, REAGAN Field Referring Unavailable VERHOFF, RONI L Primary Care Unavailable LEXY TAPIA Attending Unavailable VERHOFF, RONI L Primary Care Unavailable LEXY TAPIA Attending Unavailable VERHOFF, RONI L Primary Care Unavailable JESSICA FARRAR Attending Unavailable VERHOFF, RONI L Primary Care Unavailable VIGESPAN, REAGAN Field Referring Unavailable VERHOFF, RONI L Primary Care Unavailable MONSTER MEI Attending Unavailable VERHOFF, RONI L Primary Care Unavailable VERHOFF, RONI L Primary Care Unavailable GLORY PEÑA Referring Unavailable Verhoff Roni STEINER Primary Care Provider Obie Hylton MD Attending Provider Nuvia Smith Attending Provider LEXY CANALES Attending UnavailLEXY Daniels Attending Unavailabl LEXY Presley Attending Unavailabl e PARSELL, JOHN PAUL W Referring Unavailable VERHOFF, RONI L Primary Care Unavailable Roni Dahl MD Primary Care Provider RONI DAHL Primary Care Unavailable GEORGES BARGER Attending Unavailable CHRISTIAN LUCIO Attending Unavailable RONI DAHL Primary Care Unavailable RONI DAHL Primary Care Unavailable GEORGES BARGER Referring Unavailable GEORGES BARGER Admitting Unavailable Nabila STEINER, Roin Primary [facility] Provider Obie Hylton MD Attending Provider Kimberly STEINER, Andrius Ko Attending Unavailable Nabila STEINER, [facility] Unavailab Jan STEINER, Andrius Ko Attending Unavailable Nabila STEINER, [facility] Unavailab Jan STEINER, Andrius Maikel Attending Unavailable Nabila STEINER, [facility] Unavailab Jan STEINER, Andrius Maikel Attending Unavailable Nabila STEINER, [facility] Unavailab Jan STEINER, Andrius Maikel Attending Unavailable Nabila STEINER, [facility] Unavailab Jan STEINER, Andrius Maikel Attending Unavailable Nabila STEINER, [facility] Unavailab Jan STEINER, Andrius Maikel Attending Unavailable Nabila STEINER, [facility] Unavailab Sandra STEINER, [facility] Unavailab Jan STEINER, Georgerius Ko Attending Unavailable Nabila STEINER, [facility] Unavailab Jan STEINER, Georgerius Maikel Attending Unavailable Obie Hylton Admitting Unavailable Obie Hylton Attending Unavailable Roni Dahl [facility] Care Unavailable Roni Dahl [facility] Care Unavailable Nuvia Sanchez Admitting Unavailable Nuvia Sanchez Attending Unavailable Roni Dahl [facility] Care Unavailable Obie Hylton Admitting Unavailable Obie Hylton Attending Unavailable Allergies Allergy Classification Reported Allergen(s) Allergy Type Date of Onset Reaction(s) Facility hydroCHLOROthiazide (6 sources) hydroCHLOROthiazide Drug Allergy 2019 Rash [facility] Latex (6 sources) Latex Substance Allergy 2010 Itching [facility] NSAIDs (6 sources) Ibuprofen Drug Allergy 2018 Rash [facility] Opioid Agonists (6 sources) Morphine Drug Allergy 2010 Other (See Comments) [facility] Serotonin Reuptake Inhibitors (SSRIs) (6 sources) Escitalopram Drug Allergy 2014 Itching, Rash [facility] Sulfonamides (antibiotic) (12 sources) Sulfonamides (Antibiotic) Drug Allergy 2007 Other (See Comments), Itching [facility] Sulfur (6 sources) Sulfur Drug Allergy 2019 Itching [facility] Triamterene (6 sources) Triamterene Drug Allergy 2018 Rash [facility] WHEAT DEXTRIN (6 sources) WHEAT DEXTRIN Drug Allergy 2010 [facility] (1 source) escitalopram; Translations: [ESCITALOPRAM OXALATE] Drug Allergy [address] [facility] Repository (20 sources) morphine; Translations: [MORPHINE] Drug Allergy 2007 Other (See Comments), Vomiting (disorder), GI Intolerance, Other [facility] Repository (8 sources) Sulfonamides (Antibiotic); Translations: [SULFA (SULFONAMIDE ANTIBIOTICS)] Propensity to adverse reactions to drug (disorder) 2007 Hives [facility] Repository (1 source) GLUTEN FLOUR; Translations: [GLUTEN FLOUR] Propensity to adverse reactions to food (disorder) [address] [facility] Repository (20 sources) Escitalopram; Translations: [ESCITALOPRAM] Drug Allergy 2007 Itching, Rash [facility] [place], [place] (20 sources) Ibuprofen; Translations: [ibuprofen] Drug Allergy 2018 Rash, GI intolerance [facility] [place], [place] (20 sources) Latex; Translations: [LATEX] Propensity to adverse reactions to drug 2010 Itching, Eruption of skin (disorder), Rash, Other (See Comments) [facility] [place], [place] (20 sources) Sulfonamides (Antibiotic) Propensity to adverse reactions to drug 2007 Other (See Comments) [facility]- [place], [place] (20 sources) Triamterene; Translations: [triamterene] Drug Allergy 2018 Rash, Eruption of skin (disorder) [place], [place] Comment on above: dyazide or ibuprofen caused the rash-taken off both because not sure which one caused the problem (20 sources) WHEAT DEXTRIN; Translations: [Wheat] Drug Allergy 2010 Itching [place], [place] (20 sources) hydroCHLOROthiazide; Translations: [HYDROCHLOROTHIAZIDE] Drug Allergy 2018 Rash [place], [place] Comment on above: dyazide or ibuprofen caused the rash-taken off both because not sure which one caused the problem (20 sources) Sulfacetamide Drug Allergy 2018 Itching [place] (20 sources) Sulfur; Translations: [SULFUR] Drug Allergy 2018 Itching [place] (20 sources) Food Propensity to adverse reactions to drug 2021 [facility] (10 sources) Gluten; Translations: [Glutens] Food allergy Upset stomach (finding) [facility] (9 sources) Sulfamethoxazole; Translations: [sulfamethoxazole] Drug Allergy Eruption of skin (disorder) [facility] (17 sources) Sulfamethoxazole / Trimethoprim; Translations: [sulfamethoxazole-tri methoprim] Drug Allergy 2022 Rash, Other (See Comments) [facility] [employer] [facility] (16 sources) Sulfacetamide / Sulfur Drug Allergy Unknown [employer] Other (20 sources) Sulfonamides (Antibiotic) Propensity to adverse reactions to drug 2007 Other (See Comments), Itching, Hives, Rash [facility] (7 sources) Naproxen; Translations: [naproxen] Drug Allergy Unknown [facility] (19 sources) Wheat gluten extract Drug Allergy 2022 Nausea And Vomiting [facility] (2 sources) Morphine Drug Allergy Unknown [employer] Other (2 sources) Sulfamethoxazole / Trimethoprim; Translations: [SULFAMETHOXAZOLE-TRI METHOPRIM] Drug Allergy 2022 [facility] Repository (1 source) Wheat bran; Translations: [WHEAT BRAN] Propensity to adverse reactions to drug (disorder) 2010 [facility] Repository (1 source) GLUTEN PROTEIN; Translations: [GLUTEN PROTEIN] Propensity to adverse reactions to drug (disorder) 2017 [facility] Repository (6 sources) Gluten Allergy to substance 2017 GI intolerance, Itching [facility] (6 sources) hydroCHLOROthiazide Drug Allergy 2019 Rash [facility] (6 sources) Latex Propensity to adverse reactions 2010 Itching, Rash [facility] (6 sources) Triamterene Drug Allergy 2018 Rash [facility] (2 sources) Wheat preparation Drug Allergy 2010 Itching [facility] (1 source) Sulfonamides (Antibiotic); Translations: [sulfa drugs] Propensity to adverse reactions to drug (disorder) [facility] Repository (1 source) Escitalopram Drug Allergy 2022 [facility] Repository (1 source) hydroCHLOROthiazide Drug Allergy 2022 [facility] Repository (1 source) Ibuprofen Drug Allergy 2022 [facility] Repository (1 source) Latex Drug allergy (disorder) 2022 [facility] Repository (1 source) Sulfacetamide Drug Allergy 2022 [facility] Repository (1 source) Sulfur Drug Allergy 2022 [facility] Repository (1 source) Triamterene Drug Allergy 2022 [facility] Repository Medications Current Medications Medication Drug [...] for pain Dx: M75.101 Duration: 7 days, [facility]/pharmacy #[id number], 162, cm, 07/17/21 12:14:00 EST, Height/Length Dosing, 105.2, kg, 07/17/21 12:14:00 EST, Weig... Start Date: 07/28/21 Status: Ordered Start: 07-28-2021 Percocet 325 m g-5 mg Tab See Instructions, as needed for pain, 40 tab(s), Refill(s) 0, 1-2 orally every 4-6hrs as needed for pain Dx: M75.101 Duration: 7 days, [facility]/pharmacy #[id number], 162, cm, 07/17/21 12:14:00 EST, Height/Length Dosing, 105.2, kg, 07/17/21 12:14:00 EST, Weig... Start Date: 07/28/21 Status: Ordered amoxicillin 875 mg / clavulanate 125 mg [...] Start: 10-23-2023 take 1 tablet by karthik th twice daily apixaban (ELIQUIS) 5 MG TABS [...] take 1 tablet by mouth once daily Start: 03-16-2014 take 81 mg by mouth [...] directed 1 Bottle 3 06/18/2017 Active azelastine hydrochloride 0.137 mg/actuat / fluticasone propionate 0.05 mg/actuat metered dose nasal spray (16 sources) Corticosteroid, Histamine-1 Receptor Antagonist Start: 01-10-2018 Start: 01-10-2018 Azelastine-Flu ticasone Active 1 SPRAY INTRANASAL Twice daily January 10, 2018 12:00am Start: 01-10-2018 Azelastine-Flu ticasone Active 1 SPRAY INTRANASAL Twice daily January 09, 2018 11:00pm Azelastine-Fluticasone 137-5 0 mcg/spray [place],Non-Aerosol (2 sources) Start: 01-10-2018 Azelastine-Flu ticasone 137-50 mcg/spray [place],Non-Aerosol Active 1 SPRAY INTRANASAL Twice daily as needed for Nasal Congestion January 10, 2018 12:00am Start: 01-10-2018 Azelastine-Flu ticasone 137-50 mcg/spray [place],Non-Aerosol Active 1 SPRAY INTRANASAL Twice daily as needed for Nasal Congestion January 09, 2018 11:00pm Axyyiycqes-Tfrhhntbjpp-OeRn (16 sources) Azelastine-Fluti casone-NaCl Active azithromycin 250 mg oral tab let (7 sources) Macrolide Antimicrobial Star t: 08-02 azithromycin (ZITHROMAX) 250 MG tablet Take 2 [...] 2 times daily 0 Active Calcium Carb,Gluc-Mag Gluc,O x (Calcium Magnesium) 500 mg calcium -250 mg Tablet (5 sources) Start: 05-20-2019 take 1 tablet by karthik th twice daily Start: 05-20-2019 take 1 tablet by karthik th twice daily Calcium Carb,Gluc-Mag Gluc,Ox (Calcium Magnesium) 500 mg calcium -250 mg Tablet Active 1 TAB PO Twice daily May 20, 2019 12:00am Start: 05-20-2019 take 1 tablet by karthik th twice daily Calcium Carb,Gluc-Mag Gluc,Ox (Calcium Magnesium) [...] mg / cholecalciferol 200 unt oral tablet (3 sources) Vitamin D Start: 12-29-2017 Calcium Carbonate / magnesium carbonate (8 sources) [...] D Start: 05-29-2022 take 1 capsule by mo uth once daily take 1 capsule by mouth once sarmad [...] (20 sources) Serotonin Reuptake Inhibitor Start: 04-11-20 take 1 tablet by mouth at bedtime clotrimazole 10 mg oral lozenge (18 sources) Azole Antifungal Start: 02-06-20 End: 02-16-20 take 1 tablet by mouth five times [...] Active Start: 08-05-2024 take 1 capsule by [facility] once daily dilTIAZem (CARDIZEM CD) 120 MG extended release capsule Indications: Atrial fibrillation, unspecified type (HCC) Take 1 capsule by mouth daily 90 capsule 1 08/05/2024 Active Start: 02-11-2024 take 1 capsule by [facility] once daily dilTIAZem (CARDIZEM CD) 120 MG extended release capsule Indications: Atrial fibrillation, unspecified type (HCC) Take 1 capsule by mouth daily 90 capsule 1 02/11/2024 Active Start: 06-27-2022 take 1 tablet by karthik once daily Start: 07-29-2017 End: 05-29-2022 Diltiazem Hcl 30 [...] Ordered Start: 05-20-2019 take 1 capsule by mouth once d aily Docusate Sodium Active doxycycline hyclate 100 mg [...] take 1 capsule by mouth once daily Start: 12-29-2017 End: 05-29-2022 take 1 capsule [...] bedtime), # 90 tab(s), Refills(s) 6, Pharmacy: [facility] #[id number], 162, cm, 09/16/23 10:47:00 EDT, Height/Length Dosing, 97.8, kg, 09/16/23 10:47:00 EDT, Weight Dosing Start Date: 09/16/23 Status: Ordered Start: 04-03-2021 End: 01-15-2025 take 1 tablet by mouth once daily fexofenadine hydrochloride 180 mg oral tablet (20 sources) Histamine-1 Receptor Antagonist Start: 01-10-2018 take 1 tablet by mouth once daily as needed for congestion 12 hr fexofenadine hydrochloride 60 mg / pseudoephedrine hydrochloride 120 mg extended release oral tablet (3 sources) alpha-Adrenergic Agonist, Histamine-1 Receptor Antagonist take 1 tablet by mouth once in the morning, then take 1 tablet by mouth every twelve hours in the evening fexofenadine-pse udoephedrine ER (Ashley-D) 60-120 MG 12 hr tablet [...] 0 05/30/2019 Active fluticasone 0.05 mg/inh Nasal [place] (8 sources) Start: 03-01-2021 fluticasone 0.05 mg/inh Nasal [place] 50 mcg, Nasal, Daily, Refill(s) 0, Allergy symptoms Start Date: 03/01/21 Status: Ordered gabapentin 300 mg oral capsule (1 source) Anti-epileptic Agent Start: 05-27-2023 gabapentin (NEURONTIN) 300 MG capsule hydroCHLOROthiazide 25 mg / triamterene 37.5 mg oral capsule (20 sources) Potassium-spar ing Diuretic, Thiazide Diuretic Start: 06-27-2022 take 1 capsule by mouth once daily Start: 12-29-2017 End: 05-20-2019 take 1 tablet [...] tablet (20 sources) l-Thyroxine Start: 11-02-2014 take 1 tablet by mouth once daily Start: 11-02-2014 take 1 tablet by karthik [...] Start: 07-17-2021 take 1 capsule by mo [facility] once daily Metamucil Fibre Therapy capsule, Oral, Daily, Constipation Start Date: 07/17/21 Status: Ordered metoprolol tartrate 50 mg oral tablet (5 sources) beta-Adrenergic Natty Start: 11-14-2023 metopr olol tartrate (LOPRESSOR) tablet 50 mg Start: 11-14-2023 metoprolol (LO PRESSOR) injection 5 mg Start: 10-23-2023 take 0.5 tablet by m out twice daily metoprolol tartrate (LOPRESSOR) 25 MG [...] 2019 1:00am Multivitamin Act carole Multivitamin Tablet (3 sources) Start: 05-20-2019 take 1 tablet by mouth once da teto Start: 05-20-2019 take 1 tablet by karthik [...] mouth twice daily as needed for pain Start: 01-10-2018 End: 05-20-2019 take 1 capsule [...] 20 capsule 0 10/14/2021 10/24/2021 Active nystatin 149814 unt/ml oral suspension (20 sources) Polyene Antifungal Start: 11-25-2024 nystatin (MYCOSTATIN) 425277 UNIT/ML suspension 11/25/2024 Active Start: 10-18-2023 End: 10-28-2023 take 5 mL by mouth four times daily nystatin (MYCOSTATIN) 132370 UNIT/ML suspension Take 5 mLs by mouth 4 times daily for 10 days Swish and swallow 200 mL 0 10/18/2023 10/28/2023 Active Start: 01-30-2023 take 4 mL by mouth f our times daily Nystatin 282042 UNIT/ML 4 ml swish and swallow Mouth/Throat Four times a day for 14 days Jan, Not-Taking Start: 12-20-2022 take 5 mL by mouth f our times daily nystatin (MYCOSTATIN) 255897 UNIT/ML suspension Take 5 mLs by mouth 4 times daily Swish and swallow. 200 mL 0 02/27/2023 Active Start: 11-25-2022 End: 11-25-2022 take 5 mL by mouth four times daily nystatin (MYCOSTATIN) 417117 UNIT/ML suspension Take 5 mLs by mouth 4 times daily Swish and swallow. 200 mL 0 11/25/2022 11/25/2022 Discontinued (DUPLICATE) Start: 08-15-2022 take 5 mL by mouth f our times daily nystatin (MYCOSTATIN) 447619 UNIT/ML suspension take 5 milliliters by mouth four times a day as directed 60 mL 2 08/15/2022 Active Start: 05-29-2022 take 5 mL by mouth f our times daily nystatin (MYCOSTATIN) 788147 UNIT/ML suspension Take 5 mLs by mouth 4 times daily 60 mL 2 05/29/2022 Active Start: 05-29-2022 Start: 02-08-2022 nystatin (MYCO STATIN) 095953 UNIT/GM cream Apply topically 2 times daily Apply topically 2 times daily. 60 g 0 02/08/2022 Active Start: 02-27-2021 take 5 mL by mouth f our times daily nystatin (MYCOSTATIN) 751957 UNIT/ML suspension Take 5 mLs by mouth 4 times daily 150 mL 0 02/27/2021 Active Nystatin 486098 units/g (4 sources) Nystatin 133513 units/g applied topically as directed four times [...] Active Start: 05-15-2021 take 1 tablet by [facility] once daily Start: 01-17-2021 pantoprazole ( PROTONIX) 20 MG tablet pilocarpine hydrochloride 5 mg oral tablet (20 sources) Cholinergic Receptor Agonist Start: 12-29-2017 take 1 tablet by mouth three times daily pravastatin sodium 40 mg oral tablet (20 sources) HMG-CoA Reductase Inhibitor Start: 11-13-2011 take 1 tablet by mouth once daily at bedtime Pravastatin 40 m g Active predniSONE 20 mg oral tablet (20 sources) Start: 07-01-2023 predniSONE (DE LTASONE) 20 MG tablet 2 tablets daily x 2 days then 1 tablet 6 tablet 0 07/01/2023 Active Start: 03-01-2023 take 4 tablets by mo [facility] once daily Start: 03-01-2023 take 40 mg by mouth [...] 2018 8:42am psyllium 400 mg oral capsule (8 sources) Start: 05-20-2019 Start: 07-04-2006 psyllium (META MUCIL) 0.52 gram [...] sources) Estrogen Agonist/Antagonist Start: 06-27-2022 take 1 table t by mouth once daily Start: 12-29-2017 End: 05-20-2019 take 1 tablet [...] Start: 07-04-2006 take 1 tablet by mouth at bedtime traMADol hydrochloride 50 mg oral tablet (20 [...] 1 tablet Orally Twice a day Not-Taking cephalexin 500 mg oral capsule (18 sources) Cephalosporin Antibacterial Start: 06-03-2019 End: 03-27-2022 take 1 capsule by mouth every twelve hours Cephalexin 500 mg capsule Discontinued 500 MG PO Q12H June 03, 2019 1:00am March 27, 2022 8:11am dexamethasone phosphate 10 mg/ml injectable solution (1 source) Corticosteroid Start: 02-08-2023 End: 02-08-2023 dexamethasone (DECADRON) injection 8 mg ketorolac tromethamine 10 mg oral tablet (18 sources) Nonsteroidal Anti-inflammatory Drug, Cyclooxygenase Inhibitor Start: [...] Onset: 2 02-09-2022 Chronic Other acquired deformities (1 source) Scoliosis, unspecified; Translations: [Scoliosis, unspecified] Onset: 8 Chronic Other acquired deformities (2 sources) Other secondary scoliosis, lumbar region; Translations: [Other secondary scoliosis, lumbar region] Onset: 3 Chronic Other and unspecified benign neoplasm (1 source) Polyp of colon; Translations: [Polyp of colon] Onset: 4 Episodic Other [employer] infection and poliomyelitis (8 sources) H/O: poliomyelitis [...] Spondylosis; intervertebral disc disorders; other back problems (11 sources) Chronic low back pain; Translations: [Lumbago [...] Serum or PlasmaOrdered By: Obie Hylton on 02-26-2025 ALT [Catalytic activity/Vol] 11 U/L Normal 7-52 [facility] Comment on above: Order Comment: MAHSA GIBSONKW Performed By: #### E SR, CMP, ADDONUAPLUS, CBC #### [place] [address] [place] #### C3, CH50, C4 #### [facility] , Albumin [Mass/volume] in Ser um or Plasma by Bromocresol green (BCG) dye binding methoOrdered By: Obie Hylton on 02-26-2025 Albumin BCG dye [Mass/Vol] 4.2 g/dL 3.5-5.7 [facility] Alkaline phosphatase [Enzyma tic activity/volume] in Serum or PlasmaOrdered By: Obie Hylton on 02-26-2025 ALP [Catalytic activity/Vol] 72 U/L Normal 34-104 [facility] Comment on above: Order Comment: MAHSA LARRY Result Comment: PERF ORMED BY: [place] [address] PATHOLOGIST PLASTIC MANAGER CALVIN MILIAN M.D. Performed By: #### E SR, CMP, ADDONUAPLUS, CBC #### [address] #### C3, CH50, C4 #### [facility] , Appearance of UrineOrdered B y: Obie Hylton on 02-26-2025 Appearance (U) Clear Normal Clear [facility] Comment on above: Order Comment: MAHSA LARRY Name Collection Type:: Clean-Voided Midstream Performed By: #### E SR, CMP, ADDONUAPLUS, CBC #### [place] [address] [place] #### C3, CH50, C4 #### [facility] , Aspartate aminotransferase [ Enzymatic activity/volume] in Serum or PlasmaOrdered By: Obie Hylton on 02-26-2025 AST [Catalytic activity/Vol] 15 U/L Normal 13-39 [facility] Comment on above: Order Comment: MAHSA LARRY Performed By: #### E SR, CMP, ADDONUAPLUS, CBC #### [place] [address] [place] #### C3, CH50, C4 #### [facility] , Bacteria [Presence] in Urine by AutomatedOrdered By: Obie Hylton on 02-26-2025 Bacteria Auto Ql (U) Rare [HPF] None Seen [facility] Basophils [#/volume] in Bloo d by Automated countOrdered By: Obie Hylton on 02-26-2025 Basophils (Bld) [#/Vol] 0.0 10*3/uL Normal 0.0-0.2 [facility] Comment on above: Order Comment: [email or web address] [email or web address] Performed By: #### E SR, CMP, ADDONUAPLUS, CBC #### [facility] [address] #### C3, CH50, C4 #### [facility] , Basophils/100 leukocytes in Blood by Automated countOrdered By: Obie Ramirezrow on 02-26-2025 Basophils/100 WBC (Bld) 0.4 % Normal . [facility] Comment on above: Order Comment: [email or web address] Performed By: #### E SR, CMP, ADDONUAPLUS, CBC #### [facility] [address] [place] [address] [place] #### C3, CH50, C4 #### [facility] , Bilirubin Test strip Ql (U)O rdered By: Obie Hylton on 02-26-2025 Bilirubin Ql (U) Negative Negative [facility] Bilirubin.total [Mass/volume ] in Serum or PlasmaOrdered By: Obieradha Hylton on 02-26-2025 Bilirubin [Mass/Vol] 0.5 mg/dL Normal 0.3-1.0 [facility] Comment on above: Order Comment: [email or web address] [email or web address] Performed By: #### E SR, CMP, ADDONUAPLUS, CBC #### [facility] [address] [place] [address] [place] #### C3, CH50, C4 #### [facility] , Calcium [Mass/volume] in Ser um or PlasmaOrdered By: Obie Hylton on 02-26-2025 Calcium [Mass/Vol] 9.1 mg/dL Normal 8.6-10.3 [facility] Comment on above: Order Comment: [email or web address] [email or web address] Performed By: #### E SR, CMP, ADDONUAPLUS, CBC #### [place] [address] [place] #### C3, CH50, C4 #### [facility] , Carbon dioxide, total [Moles /volume] in Serum or PlasmaOrdered By: Obie Hylton on 02-26-2025 CO2 [Moles/Vol] 27.5 mmol/L Normal 21.0-31.0 [facility] Comment on above: Order Comment: [email or web address] [email or web address] Performed By: #### E SR, CMP, ADDONUAPLUS, CBC #### [address] #### C3, CH50, C4 #### [facility] , Chloride [Moles/volume] in S liat or PlasmaOrdered By: Obie Hylton on 02-26-2025 Chloride [Moles/Vol] 107 mmol/L Normal 98-107 [facility] Comment on above: Order Comment: [email or web address] [email or web address] Performed By: #### E SR, CMP, ADDONUAPLUS, CBC #### [place] [address] [place] #### C3, CH50, C4 #### [facility] , Color of Urine by AutoOrdere d By: Obie Hylton on 02-26-2025 Color (U) Light-yellow Normal Yellow [facility] Comment on above: Order Comment: [email or web address] Name Collection Type:: Clean-Voided Midstream Performed By: #### E SR, CMP, ADDONUAPLUS, CBC #### [place] [address] [place] #### C3, CH50, C4 #### [facility] , Complement C3on 02-26-2025 Complement C3 114 mg/dL Normal 82-167 [facility] Comment on above: Order Comment: [email or web address] Result Comment: Perf ormed at: CB - [facility] [address], [place], [place] [id number] Bed Laborer: Usman Draper PhD, Phone: [phone] Performed By: #### E SR, CMP, ADDONUAPLUS, CBC #### [address] #### C3, CH50, C4 #### [facility] , Complement C4on 02-26-2025 Complement C4 24 mg/dL Normal 12-38 [facility] Comment on above: Order Comment: [email or web address] [email or web address] Result Comment: Perf ormed at: [address] [id number] Bed Laborer: Usman Draper PhD, Phone: [phone] PERFORMED BY: [place] [address] PATHOLOGIST PLASTIC MANAGER CALVIN MILIAN M.D. Performed By: #### E SR, CMP, ADDONUAPLUS, CBC #### [address] #### C3, CH50, C4 #### [facility] , Complement Total (CH50)on Complement Total (CH50) 55 Normal >41 [facility] Comment on above: Order Comment: [email or web address] Result Comment: Age Male Female 1 - [...] determine out of range values. Performed at: [address] [id number] Bed Laborer: Usman Draper PhD, Phone: [phone] PERFORMED BY: [place] [address] PATHOLOGIST PLASTIC MANAGER CALVIN S MAICOL M.D. Performed By: #### E SR, CMP, ADDONUAPLUS, CBC #### [place] [address] [place] #### C3, CH50, C4 #### [facility] , Complete Blood Count Auto Di ffon 02-26-2025 Mean Corpuscular HGB Conc 34.1 g/dL Normal 32.0-35.0 [facility] Comment on above: Order Comment: FASTI [email or web address] Performed By: #### E SR, CMP, ADDONUAPLUS, CBC #### [place] [address] [place] #### C3, CH50, C4 #### [facility] , NRBC% 0.0 /100{WBC} Normal 0-0.5 [facility] Comment on above: Order Comment: FASTI [email or web address] Performed By: #### E SR, CMP, ADDONUAPLUS, CBC #### [facility] [address] [place] [address] [place] #### C3, CH50, C4 #### [facility] , White Blood Count 6.8 [CFU]/mL Normal 3.8-11.6 [facility] Comment on above: Order Comment: FASTI [email or web address] Performed By: #### E SR, CMP, ADDONUAPLUS, CBC #### [place] [address] [place] #### C3, CH50, C4 #### [facility] , Comprehensive Metabolic Pane trevor 02-26-2025 Albumin [Mass/Vol] 4.2 g/dL Normal 3.5-5.7 The Count includes the [facility] Comment on above: Order Comment: FASTI [email or web address] Performed By: #### E SR, CMP, ADDONUAPLUS, CBC #### [place] [address] [place] #### C3, CH50, C4 #### [facility] , GFR/1.73 sq M.predicted MDRD (S/P/Bld) [Vol rate/Area] 41.957 mL/min/{1.73_m2} Normal The [facility] Comment on above: Order Comment: FASTI [email or web address] Performed By: #### E SR, CMP, ADDONUAPLUS, CBC #### [place] [address] [place] #### C3, CH50, C4 #### [facility] , Creatinine [Mass/volume] in Serum or PlasmaOrdered By: Obie Hylton on 02-26-2025 Creatinine [Mass/Vol] 1.29 mg/dL High 0.60-1.20 [facility] Comment on above: Order Comment: FASTI [email or web address] Performed By: #### E SR, CMP, ADDONUAPLUS, CBC #### [place] [address] [place] #### C3, CH50, C4 #### [facility] , Dipstick and Microscopicon 0 02-26-2025 Bacteria,Urine Rare Normal None Seen The [facility] Comment on above: Order Comment: FASTI [email or web address].JKW Name Collection Type:: Clean-Voided Midstream Performed By: #### E SR, CMP, ADDONUAPLUS, CBC #### [place] [address] [place] #### C3, CH50, C4 #### [facility] , Bilirubin,Urine Negative Normal Negative The [facility] Comment on above: Order Comment: FASTI NG.JKW Name Collection Type:: Clean-Voided Midstream Performed By: #### E SR, CMP, ADDONUAPLUS, CBC #### [facility] [address] [place] [address] [place] #### C3, CH50, C4 #### [facility] , Glucose Ql (U) Normal Normal Normal [facility] Comment on above: Order Comment: FASTI [email or web address].JKW Name Collection Type:: Clean-Voided Midstream Performed By: #### E SR, CMP, ADDONUAPLUS, CBC #### [place] [address] [place] #### C3, CH50, C4 #### [facility] , Hyaline Casts,Urine None Normal 0-8 [facility] Comment on above: Order Comment: FASTI NG.JKW Name Collection Type:: Clean-Voided Midstream Performed By: #### E SR, CMP, ADDONUAPLUS, CBC #### [address] #### C3, CH50, C4 #### [facility] , Mucus,Urine Rare Normal [facility] Comment on above: Order Comment: FASTI NG.JKW Name Collection Type:: Clean-Voided Midstream Result Comment: PERF ORMED BY: [place] [address] PATHOLOGIST PLASTIC MANAGER CALVIN MILIAN M.D. Performed By: #### E SR, CMP, ADDONUAPLUS, CBC #### [address] #### C3, CH50, C4 #### [facility] , Nitrite,Urine Negative Normal Negative [facility] Comment on above: Order Comment: FASTI NG.JKW Name Collection Type:: Clean-Voided Midstream Performed By: #### E SR, CMP, ADDONUAPLUS, CBC #### [place] [address] [place] #### C3, CH50, C4 #### [facility] , Occult Blood,Urine Trace Normal Negative The Count includes the [facility] Comment on above: Order Comment: FASTI NG.JKW Name Collection Type:: Clean-Voided Midstream Performed By: #### E SR, CMP, ADDONUAPLUS, CBC #### [place] [address] [place] #### C3, CH50, C4 #### [facility] , Protein,Urine Negative Normal Negative [facility] Comment on above: Order Comment: FASTI NG.JKW Name Collection Type:: Clean-Voided Midstream Performed By: #### E SR, CMP, ADDONUAPLUS, CBC #### [address] #### C3, CH50, C4 #### [facility] , RBC,Urine 3-4 Normal 0-4 [facility] Comment on above: Order Comment: FASTI NG.JKW Name Collection Type:: Clean-Voided Midstream Performed By: #### E SR, CMP, ADDONUAPLUS, CBC #### [address] #### C3, CH50, C4 #### [facility] , Specificy [place],Urine 1.020 Normal 1.001-1.03 0 [facility] Comment on above: Order Comment: FASTI NG.JKW Name Collection Type:: Clean-Voided Midstream Performed By: #### E SR, CMP, ADDONUAPLUS, CBC #### [address] #### C3, CH50, C4 #### [facility] , Squamous Epithelial Cell,Urine 3-4 Normal 0-2 [facility] Comment on above: Order Comment: FASTI NG.JKW Name Collection Type:: Clean-Voided Midstream Performed By: #### E SR, CMP, ADDONUAPLUS, CBC #### [place] [address] [place] #### C3, CH50, C4 #### [facility] , Urobilinogen,Urine Normal Normal Normal The Count includes the [facility] Comment on above: Order Comment: FASTI NG.JKW Name Collection Type:: Clean-Voided Midstream Performed By: #### E SR, CMP, ADDONUAPLUS, CBC #### [address] [place] [address] [place] #### C3, CH50, C4 #### [facility] , WBC,Urine 1-2 Normal 0-4 [facility] Comment on above: Order Comment: FASTI [email or web address].JKW Name Collection Type:: Clean-Voided Midstream Performed By: #### E SR, CMP, ADDONUAPLUS, CBC #### [address] #### C3, CH50, C4 #### [facility] , Eosinophils [#/volume] in Bl ood by Automated countOrdered By: Obie Hylton on 02-26-2025 Eosinophils (Bld) [#/Vol] 0.1 10*3/uL Normal 0.0-0.45 [facility] Comment on above: Order Comment: [email or web address] Performed By: #### E SR, CMP, ADDONUAPLUS, CBC #### [address] #### C3, CH50, C4 #### [facility] , Eosinophils/100 leukocytes i n Blood by Automated countOrdered By: Obie Hylton on 02-26-2025 Eosinophils/100 WBC (Bld) 1.2 % Normal . [facility] Comment on above: Order Comment: FASTI [email or web address] Performed By: #### E SR, CMP, ADDONUAPLUS, CBC #### [place] [address] [place] #### C3, CH50, C4 #### [facility] , Epithelial cells.squamous [# /area] in Urine sediment by Automated countOrdered By: Obie Hylton on 02-26-2025 Epithelial cells.squamous Auto (Urine sed) [#/Area] 3-4 [HPF] High 0-2 [facility] Erythrocyte Sedimentation Ra heather 02-26-2025 ESR (Bld) [Velocity] 21 mm/h Normal 0-29 [facility] Comment on above: Order Comment: [email or web address] Result Comment: PERF ORMED BY: [place] [address] PATHOLOGIST PLASTIC MANAGER CALVIN MILIAN M.D. Performed By: #### E SR, CMP, ADDONUAPLUS, CBC #### [address] #### C3, CH50, C4 #### [facility] , Erythrocyte distribution wid th [Ratio] by Automated countOrdered By: Obie Hylton on 02-26-2025 Erythrocyte distribution width (RBC) [Ratio] 14.8 % Normal 11.9-15.3 [facility] Comment on above: Order Comment: MAHSA [email or web address] Performed By: #### E SR, CMP, ADDONUAPLUS, CBC #### [place] [address] [place] #### C3, CH50, C4 #### [facility] , Erythrocyte sedimentation ra te by Photometric methodOrdered By: Obie Hylton on 02-26-2025 ESR Photometric method (Bld) [Velocity] 21 mm/hr [facility] Erythrocytes [#/area] in Uri ne sediment by Automated countOrdered By: Obie Hylton on 02-26-2025 RBC Auto (Urine sed) [#/Area] 3-4 [HPF] 0-4 [facility] Erythrocytes [#/volume] in B lood by Automated countOrdered By: Obie Hylton on 02-26-2025 RBC (Bld) [#/Vol] 4.27 10*6/uL Normal 3.60-5.00 [facility] Comment on above: Order Comment: MAHSA [email or web address] Performed By: #### E SR, CMP, ADDONUAPLUS, CBC #### [place] [address] [place] #### C3, CH50, C4 #### [facility] , Glomerular filtration rate [ Volume Rate/Area] in Serum, Plasma or Blood by CreatinineOrdered By: Obie Hylton on 02-26-2025 Glomerular filtration rate [Volume Rate/Area] in Serum, Plasma or Blood by Creatinine 41.957 mL/Min [facility] Glucose [Mass/volume] in Ser um or PlasmaOrdered By: Obie Hylton on 02-26-2025 Glucose [Mass/Vol] 90 mg/dL Normal 70-100 [facility] [place] [facility] Comment on above: ADA recommended refe rence rangeRandom Glucose Reference Range is dependent on time and content of last meal. Glucose of more than 200 mg/dL in a nonstressed, ambulatory subject supports the diagnosis of Diabetes Mellitus. Order Comment: MAHSA GIBSONKW Result Comment: [place] om Glucose Reference Range is dependent on time and content of last meal. Glucose of more than 200 mg/dL in a nonstressed, ambulatory subject supports the diagnosis of Diabetes Mellitus. ADA recommended reference range Performed By: #### E SR, CMP, ADDONUAPLUS, CBC #### [facility] [address] [place] [address] [place] #### C3, CH50, C4 #### [facility] , Glucose [Mass/volume] in Uri ne by Test stripOrdered By: Obie Hylton on 02-26-2025 Glucose Test strip (U) [Mass/Vol] Normal mg/dL Normal [facility] Hematocrit [Volume Fraction] of Blood by Automated countOrdered By: Obie Hylton on 02-26-2025 Hematocrit (Bld) [Volume fraction] 38.6 % Normal 34.0-46.4 [facility] Comment on above: Order Comment: [email or web address] [email or web address] Performed By: #### E SR, CMP, ADDONUAPLUS, CBC #### [facility] [address] [place] [address] [place] #### C3, CH50, C4 #### [facility] , Hemoglobin Test strip Ql (U) Ordered By: Obie Hylton on 02-26-2025 Hemoglobin Ql (U) Trace High Negative [facility] Hemoglobin [Mass/volume] in BloodOrdered By: Obie Hylton on 02-26-2025 Hemoglobin (Bld) [Mass/Vol] 13.2 g/dL Normal 11.8-15.4 [facility] Comment on above: Order Comment: [email or web address] [email or web address] Performed By: #### E SR, CMP, ADDONUAPLUS, CBC #### [facility] [address] [place] [address] [place] #### C3, CH50, C4 #### [facility] , Hyaline casts [#/area] in Ur ine sediment by Automated countOrdered By: Obie Hylton on 02-26-2025 Hyaline casts Auto (Urine sed) [#/Area] None [LPF] 0-8 [facility] Ketones [Presence] in Urine by Test stripOrdered By: Oibe Hylton on 02-26-2025 Ketones Ql (U) Negative Normal Negative [facility] Comment on above: Order Comment: MAHSA [email or web address].JKW Name Collection Type:: Clean-Voided Midstream Performed By: #### E SR, CMP, ADDONUAPLUS, CBC #### [facility] [address] [place] [address] [place] #### C3, CH50, C4 #### [facility] , Leukocyte esterase [Presence ] in Urine by Test stripOrdered By: Obie Hylton on 02-26-2025 Leukocyte esterase Test strip Ql (U) Negative Normal Negative [facility] Comment on above: Order Comment: LEPacheco [email or web address].JKW Name Collection Type:: Clean-Voided Midstream Performed By: #### E SR, CMP, ADDONUAPLUS, CBC #### [facility] [address] [place] [address] [place] #### C3, CH50, C4 #### [facility] , Leukocytes [#/area] in Urine sediment by Automated countOrdered By: Obie Hylton on 02-26-2025 WBC Auto (Urine sed) [#/Area] 1-2 [HPF] 0-4 [facility] Leukocytes [#/volume] correc pepito for nucleated erythrocytes in Blood by Automated counOrdered By: Obie Hylton on 02-26-2025 WBC corrected for nucl RBC Auto (Bld) [#/Vol] 6.8 10*3/uL 3.8-11.6 [facility] Leukocytes [#/volume] in Blo od by Automated countOrdered By: Obie Warner on 02-26-2025 WBC (Bld) [#/Vol] 6.8 10*3/uL Normal 3.8-11.6 [facility] [place] [facility] Comment on above: Order Comment: [email or web address] [email or web address] Performed By: #### E SR, CMP, ADDONUAPLUS, CBC #### [place] [address] [place] #### C3, CH50, C4 #### [facility] , Lymphocytes [#/volume] in Bl ood by Automated countOrdered By: Obie Hylton on 02-26-2025 Lymphocytes (Bld) [#/Vol] 1.4 10*3/uL Normal 1.00-4.8 [facility] Comment on above: Order Comment: [email or web address] [email or web address] Performed By: #### E SR, CMP, ADDONUAPLUS, CBC #### [place] [address] [place] #### C3, CH50, C4 #### [facility] , Lymphocytes/100 leukocytes i n Blood by Automated countOrdered By: Obie Hylton on 02-26-2025 Lymphocytes/100 WBC (Bld) 21.1 % Normal . [facility] Comment on above: Order Comment: FASTI [email or web address] Performed By: #### E SR, CMP, ADDONUAPLUS, CBC #### [place] [address] [place] #### C3, CH50, C4 #### [facility] , MCH [Entitic mass] by Automa pepito countOrdered By: Obie Warner on 02-26-2025 MCH (RBC) [Entitic mass] 30.9 pg Normal 24.7-34.3 [facility] Comment on above: Order Comment: FASTI [email or web address] Performed By: #### E SR, CMP, ADDONUAPLUS, CBC #### [place] [address] [place] #### C3, CH50, C4 #### [facility] , MCHC Auto (RBC) [Mass/Vol]Or dered By: Obie Warner on 02-26-2025 MCHC (RBC) [Mass/Vol] 34.1 g/dL 32.0-35.0 [facility] MCV [Entitic volume] by Auto mated countOrdered By: Obie Ramirezrow on 02-26-2025 MCV (RBC) [Entitic vol] 90.4 fL Normal 80-100 [facility] Comment on above: Order Comment: [email or web address] [email or web address] Performed By: #### E SR, CMP, ADDONUAPLUS, CBC #### [address] #### C3, CH50, C4 #### [facility] , Monocytes [#/volume] in Bloo d by Automated countOrdered By: Obie Hylton on 02-26-2025 Monocytes (Bld) [#/Vol] 0.6 10*3/uL Normal 0.0-0.8 [facility] Comment on above: Order Comment: [email or web address] [email or web address] Performed By: #### E SR, CMP, ADDONUAPLUS, CBC #### [place] [address] [place] #### C3, CH50, C4 #### [facility] , Monocytes/100 leukocytes in Blood by Automated countOrdered By: Obie Hylton on 02-26-2025 Monocytes/100 WBC (Bld) 9.4 % Normal . [facility] Comment on above: Order Comment: FASTI [email or web address] Performed By: #### E SR, CMP, ADDONUAPLUS, CBC #### [place] [address] [place] #### C3, CH50, C4 #### [facility] , Mucus [Presence] in Urine by AutomatedOrdered By: Obie Hylton on 02-26-2025 Mucus Auto Ql (U) Rare [LPF] [facility] Neutrophils [#/volume] in Bl ood by Automated countOrdered By: Obie Hylton on 02-26-2025 Neutrophils (Bld) [#/Vol] 4.6 10*3/uL Normal 1.8-7.7 [facility] Comment on above: Order Comment: FASTI [email or web address] Performed By: #### E SR, CMP, ADDONUAPLUS, CBC #### [facility] [address] #### C3, CH50, C4 #### [facility] , Neutrophils/100 leukocytes i n Blood by Automated countOrdered By: Obie Ramirezrow on 02-26-2025 Neutrophils/100 WBC (Bld) 67.9 % Normal . [facility] Comment on above: Order Comment: [email or web address] [email or web address] Performed By: #### E SR, CMP, ADDONUAPLUS, CBC #### [address] #### C3, CH50, C4 #### [facility] , Nitrite Test strip Ql (U)Ord ered By: Obie Hylton on 02-26-2025 Nitrite Ql (U) Negative Negative [facility] No Panel InformationOrdered By: Obie Hylton on 02-26-2025 Pharmacy Creatinine Clearance (Chem N/A [facility] Nucleated erythrocytes [Pres ence] in Blood by Automated countOrdered By: Obie Warner on 02-26-2025 Nucleated RBC Auto Ql (Bld) 0.0 /100{WBC} 0-0.5 [facility] Platelet mean volume [Entiti c volume] in Blood by Automated countOrdered By: Obie Ramirezrow on 02-26-2025 Platelet mean volume (Bld) [Entitic vol] 8.8 fL Normal 6.3-10.7 [facility] Comment on above: Order Comment: FASTI [email or web address] Performed By: #### E SR, CMP, ADDONUAPLUS, CBC #### [facility] [address] [place] [address] #### C3, CH50, C4 #### [facility] , Platelets [#/volume] in Bloo d by Automated countOrdered By: Obie Ramirezrow on 02-26-2025 Platelets (Bld) [#/Vol] 212 10*3/uL Normal 150-450 [facility] Comment on above: Order Comment: [email or web address] [email or web address] Performed By: #### E SR, CMP, ADDONUAPLUS, CBC #### [address] #### C3, CH50, C4 #### [facility] , Potassium [Moles/volume] in Serum or PlasmaOrdered By: Obieradha Hylton on 02-26-2025 Potassium [Moles/Vol] 4.3 mmol/L Normal 3.5-5.1 [facility] Comment on above: Order Comment: FASTPacheco [email or web address] Performed By: #### E SR, CMP, ADDONUAPLUS, CBC #### [address] #### C3, CH50, C4 #### [facility] , Protein Test strip (U) [Mass /Vol]Ordered By: Obieradha Hylton on 02-26-2025 Protein (U) [Mass/Vol] Negative Negative [facility] Protein [Mass/volume] in Ser um or PlasmaOrdered By: Obie Hylton on 02-26-2025 Protein [Mass/Vol] 6.9 g/dL Normal 6.4-8.9 [facility] [place] [facility] Comment on above: Order Comment: FASTI [email or web address] Performed By: #### E SR, CMP, ADDONUAPLUS, CBC #### [facility] [address] [place] [address] [place] #### C3, CH50, C4 #### [facility] , Serum globulin measurement b y calculation (mass/volume)Ordered By: Obie Hylton on 02-26-2025 Globulin (S) [Mass/Vol] 2.7 g/dL [facility] Comment on above: Order Comment: [email or web address] [email or web address] Performed By: #### E SR, CMP, ADDONUAPLUS, CBC #### [place] [address] [place] #### C3, CH50, C4 #### [facility] , Serum or plasma albumin/glob ulin mass ratioOrdered By: Obie Hylton on 02-26-2025 Albumin/Globulin [Mass ratio] 1.6 {ratio} [facility] Comment on above: Order Comment: FASTI [email or web address] Performed By: #### E SR, CMP, ADDONUAPLUS, CBC #### [address] #### C3, CH50, C4 #### [facility] , Serum or plasma anion gap de terminationOrdered By: Obie Hylton on 02-26-2025 Anion gap [Moles/Vol] 9.8 mmol/L Normal 6.0-15.0 [facility] Comment on above: Order Comment: [email or web address] [email or web address] Performed By: #### E SR, CMP, ADDONUAPLUS, CBC #### [address] #### C3, CH50, C4 #### [facility] , Sodium [Moles/volume] in Ser um or PlasmaOrdered By: Obie Hylton on 02-26-2025 Sodium [Moles/Vol] 140 mmol/L Normal 136-145 [facility] [place] [facility] Comment on above: Order Comment: FASTI [email or web address] Performed By: #### E SR, CMP, ADDONUAPLUS, CBC #### [facility] [address] [place] [address] [place] #### C3, CH50, C4 #### [facility] , Specific gravity Test strip (U) [Rel density]Ordered By: Obie Hylton on 02-26-2025 Specific gravity (U) [Rel density] 1.020 1.001-1.03 0 [facility] Urea nitrogen [Mass/volume] in Serum or PlasmaOrdered By: Obie Hylton on 02-26-2025 Urea nitrogen [Mass/Vol] 31 mg/dL High 7-25 [facility] Comment on above: Order Comment: MAHSA GIBSONKW Performed By: #### E SR, CMP, ADDONUAPLUS, CBC #### [facility] [address] [place] [address] [place] #### C3, CH50, C4 #### [facility] , Urobilinogen Test strip (U) [Mass/Vol]Ordered By: Obie Hylton on 02-26-2025 Urobilinogen (U) [Mass/Vol] Normal mg/dL Normal [facility] pH of Urine by Test stripOrd ered By: Obie Hylton on 02-26-2025 pH (U) 6.5 [pH] Normal 5.0-9.0 [facility] Comment on above: Order Comment: MAHSA CHIANGJKW Name Collection Type:: Clean-Voided Midstream Performed By: #### E SR, CMP, ADDONUAPLUS, CBC #### [facility] [address] [place] [address] [place] #### C3, CH50, C4 #### [facility] , XR CHEST AP/PA AND LATon XR CHEST [...] on SatFeb 05, 2025 10:31:28 AM EDT Normal [facility] Comment on above: Order Comment: Injur y/Trauma or Illness?:Illness/Other How long have you had these symptoms (acute/chronic)?:Acute Reason for exam?:cough History of cancer?:u Surgeries, chemotherapy, or radiation?:u Type of Exam?:Initial Additional signs and symptoms?:congestion x 1 month XR Chest PA and Lateral and AP lateral-decubituson 02-05-2025 There is no acute cardiopulmonary process. Workstation ID: [id number] [employer] RIS EXAMINATION: XR CHEST AP/PA AND LAT HISTORY: [...] the right upper abdomen suggesting a cholecystectomy. [employer] Мария Stokes MD - 02/05/2025 EXAMINATION: XR [...] no acute cardiopulmonary process. Workstation ID: [id number] [facility] Radiology Study observation (narrative) [facility] XR Chest PA and Lateral and AP lateral-decubitusOrdered By: Мария Stokes on 02-05-2025 [facility] Work Phone: Urinalysis w/ Microon 2024 Bilirubin, SemiQt,Ur Negative Normal NEG [facility] Comment on above: Performed By: #### U AMIC #### [facility] [address] [place] [address] Bed Laborer: Christian Muir MD Blood, Urine Negative Normal NEG [facility] Comment on above: Performed By: #### U AMIC #### [facility] [address] [place] [address] Bed Laborer: Christian Muir MD Clarity (U) Clear Normal CLEAR [facility] Comment on above: Performed By: #### U AMIC #### [facility] [address] [place] [address] Bed Laborer: Christian Muir MD Color (U) Yellow Normal YEL [facility] Comment on above: Performed By: #### U AMIC #### [facility] [address] [place] [address] Bed Laborer: Christian Muir MD Epithelial cells LM Ql (Urine sed) 2 TO 5 Normal 0-25 [facility] Comment on above: Performed By: #### U AMIC #### [facility] [address] [place] [address] Bed Laborer: Christian Muir MD Glucose Ql (U) Negative Normal NEG [facility] Comment on above: Performed By: #### U AMIC #### [facility] [address] [place] [address] Dr[address] [place], [place] [id number] Bed Laborer: Christian Muir MD Ketones Ql (U) Negative Normal NEG [facility] Comment on above: Performed By: #### U AMIC #### [facility] [address] [place] [address] Dr[place], [place] [id number] Bed Laborer: Christian Muir MD Leukocyte esterase Test strip Ql (U) Negative Normal NEG [facility] Comment on above: Performed By: #### U AMIC #### [address] [place], [place] [id number] Bed Laborer: Christian Muir MD Nitrite,Ur Negative Normal NEG [facility] Comment on above: Performed By: #### U AMIC #### [facility] [address] [place] [address] Dr[place], [place] [id number] Bed Laborer: Christian Muir MD PH,Ur 6.0 Normal 5.0-9.0 [facility] Comment on above: Performed By: #### U AMIC #### [address] [place], [place] [id number] Bed Laborer: Christian Muir MD Protein Ql (U) Negative Normal NEG [facility] Comment on above: Performed By: #### U AMIC #### [facility] [address] [place] [address] Dr[place], [place] [id number] Bed Laborer: Christian Muir MD Spec. [place],Ur 1.020 Normal 1.010-1.[address] [facility] Comment on above: Performed By: #### U AMIC #### [facility] [address] [place] [address] Dr[place], [place] [id number] Bed Laborer: Christian Muir MD Urine RBC's 0 TO 2 Normal 0-2 [facility] Comment on above: Performed By: #### U AMIC #### [facility] [address] [place] [address] Bed Laborer: Christian Muir MD Urine WBC's 0 TO 2 Normal 0-5 [facility] Comment on above: Performed By: #### U AMIC #### [facility] [address] [place] [address] Bed Laborer: Christian Muir MD Urobilinogen,Ur Normal Normal 0.0-1.0 [facility] Comment on above: Performed By: #### U AMIC #### [facility] [address] [place] [address] Bed Laborer: Christian Muir MD Urinalysis with Microscopico n 12-22-2024 Bilirubin Ql (U) Negative NEGATIVE [facility] Clarity (U) Clear Clear [facility] Color (U) Yellow Yellow [facility] Epithelial cells LM.HPF (Urine sed) [#/Area] 2 TO 5 [facility] Glucose Test strip (U) [Mass/Vol] Negative NEGATIVE mg/dL [facility] Hemoglobin Auto test strip Ql (U) Negative NEGATIVE [facility] Ketones (U) [Mass/Vol] Negative NEGATIVE mg/dL [facility] Leukocyte esterase Test strip Ql (U) Negative NEGATIVE Bon [facility] Nitrite Ql (U) Negative NEGATIVE [facility] pH (U) 6 [pH] 5.0 - 9.0 [facility] Protein (U) [Mass/Vol] Negative NEGATIVE mg/dL [facility] RBC LM.HPF (Urine sed) [#/Area] 0 TO 2 [facility] Specific gravity (U) [Rel density] 1.02 1.010 - 1.020 [facility] Urobilinogen Qn (U) Normal 0.0 - 1. 0 EU/dL [facility] WBC LM.HPF (Urine sed) [#/Area] 0 TO 2 [facility] Bon [facility] Appearance of UrineOrdered B y: Nuvia Sanchez on 09-10-2024 Appearance (U) Urine appearance Clear [facility] Bacteria [Presence] in Urine by AutomatedOrdered By: Nuvia Sanchez on 09-10-2024 Bacteria Auto Ql (U) Bacteria [Presence] in Urine by Automated None Seen [facility] Bilirubin Test strip Ql (U)O rdered By: Nuvia Sanchez on 09-10-2024 Bilirubin Ql (U) Bilirubin.total [Pre sence] in Urine by Test strip Negative [facility] Color Auto (U)Ordered By: Rajani Patel on 09-10-2024 Color (U) Color of Urine by Auto Yellow Fi [facility] Dipstick and Microscopicon 0 09-10-2024 Appearance (U) Clear Normal Clear [facility] Comment on above: Order Comment: FASTI NG.JKW Name Collection Type:: Clean-Voided Midstream Performed By: #### E SR, CMP, ADDONUAPLUS, CBC #### [place] [address] [place] #### C3, CH50, C4 #### [facility] , Bacteria,Urine Rare Normal None Seen [facility] Comment on above: Order Comment: FASTI NG.JKW Name Collection Type:: Clean-Voided Midstream Performed By: #### E SR, CMP, ADDONUAPLUS, CBC #### [place] [address] [place] #### C3, CH50, C4 #### [facility] , Bilirubin,Urine Negative Normal Negative The [facility] Comment on above: Order Comment: FASTI NG.JKW Name Collection Type:: Clean-Voided Midstream Performed By: #### E SR, CMP, ADDONUAPLUS, CBC #### [facility] [address] [place] [address] [place] #### C3, CH50, C4 #### [facility] , Color (U) Yellow Normal Yellow [facility] Comment on above: Order Comment: FASTI NG.JKW Name Collection Type:: Clean-Voided Midstream Performed By: #### E SR, CMP, ADDONUAPLUS, CBC #### [place] [address] [place] #### C3, CH50, C4 #### [facility] , Glucose Ql (U) Normal Normal Normal [facility] Comment on above: Order Comment: FASTI NG.JKW Name Collection Type:: Clean-Voided Midstream Performed By: #### E SR, CMP, ADDONUAPLUS, CBC #### [address] #### C3, CH50, C4 #### [facility] , Hyaline Casts,Urine None Normal 0-8 [facility] Comment on above: Order Comment: FASTI NG.JKW Name Collection Type:: Clean-Voided Midstream Performed By: #### E SR, CMP, ADDONUAPLUS, CBC #### [address] #### C3, CH50, C4 #### [facility] , Ketones Ql (U) Negative Normal Negative [facility] Comment on above: Order Comment: FASTI NG.JKW Name Collection Type:: Clean-Voided Midstream Performed By: #### E SR, CMP, ADDONUAPLUS, CBC #### [place] [address] [place] #### C3, CH50, C4 #### [facility] , Leukocyte esterase Test strip Ql (U) Negative Normal Negative [facility] Comment on above: Order Comment: FASTI NG.JKW Name Collection Type:: Clean-Voided Midstream Performed By: #### E SR, CMP, ADDONUAPLUS, CBC #### [place] [address] [place] #### C3, CH50, C4 #### [facility] , Mucus,Urine Rare Normal [facility] Comment on above: Order Comment: FASTI NG.JKW Name Collection Type:: Clean-Voided Midstream Result Comment: PERF ORMED BY: [place] [address] PATHOLOGIST PLASTIC MANAGER DOMINICK MONTIEL M.D. Performed By: #### E SR, CMP, ADDONUAPLUS, CBC #### [place] [address] [place] #### C3, CH50, C4 #### [facility] , Nitrite,Urine Negative Normal Negative The [facility] Comment on above: Order Comment: FASTI NG.JKW Name Collection Type:: Clean-Voided Midstream Performed By: #### E SR, CMP, ADDONUAPLUS, CBC #### [address] #### C3, CH50, C4 #### [facility] , Occult Blood,Urine Negative Normal Negative The Count includes the [facility] Comment on above: Order Comment: FASTI NG.JKW Name Collection Type:: Clean-Voided Midstream Performed By: #### E SR, CMP, ADDONUAPLUS, CBC #### [address] #### C3, CH50, C4 #### [facility] , pH (U) 5.0 [pH] Normal 5.0-9.0 [facility] Comment on above: Order Comment: FASTI NG.JKW Name Collection Type:: Clean-Voided Midstream Performed By: #### E SR, CMP, ADDONUAPLUS, CBC #### [place] [address] [place] #### C3, CH50, C4 #### [facility] , Protein,Urine Negative Normal Negative The [facility] Comment on above: Order Comment: FASTI NG.JKW Name Collection Type:: Clean-Voided Midstream Performed By: #### E SR, CMP, ADDONUAPLUS, CBC #### [address] #### C3, CH50, C4 #### [facility] , RBC,Urine 3-4 Normal 0-4 [facility] Comment on above: Order Comment: FASTI NG.JKW Name Collection Type:: Clean-Voided Midstream Performed By: #### E SR, CMP, ADDONUAPLUS, CBC #### [address] #### C3, CH50, C4 #### [facility] , Specificy [place],Urine 1.018 Normal 1.001-1.03 0 [facility] Comment on above: Order Comment: FASTI NG.JKW Name Collection Type:: Clean-Voided Midstream Performed By: #### E SR, CMP, ADDONUAPLUS, CBC #### [address] #### C3, CH50, C4 #### [facility] , Squamous Epithelial Cell,Urine 1-2 Normal 0-2 [facility] Comment on above: Order Comment: FASTI NG.JKW Name Collection Type:: Clean-Voided Midstream Performed By: #### E SR, CMP, ADDONUAPLUS, CBC #### [address] #### C3, CH50, C4 #### [facility] , Uric Acid Crystals,Urine 1+ Normal [facility] Comment on above: Order Comment: FASTI NG.JKW Name Collection Type:: Clean-Voided Midstream Performed By: #### E SR, CMP, ADDONUAPLUS, CBC #### [place] [address] [place] #### C3, CH50, C4 #### [facility] , Urobilinogen,Urine Normal Normal Normal The Count includes the [facility] Comment on above: Order Comment: FASTI NG.JKW Name Collection Type:: Clean-Voided Midstream Performed By: #### E SR, CMP, ADDONUAPLUS, CBC #### [facility] [address] [place] [address] [place] #### C3, CH50, C4 #### [facility] , WBC,Urine 1-2 Normal 0-4 [facility] Comment on above: Order Comment: MAHSA CHIANGJPeteW Name Collection Type:: Clean-Voided Midstream Performed By: #### E SR, CMP, ADDONUAPLUS, CBC #### [facility] [address] [place] [address] [place] #### C3, CH50, C4 #### [facility] , Epithelial cells.squamous [# /area] in Urine sediment by Automated countOrdered By: Nuvia Sanchez on 09-10-2024 Epithelial cells.squamous Auto (Urine sed) [#/Area] Epithelial cells.squamous [#/area] in Urine sediment by Automated count 0-2 [facility] Erythrocytes [#/area] in Uri ne sediment by Automated countOrdered By: Nuvia Sanchez on 09-10-2024 RBC Auto (Urine sed) [#/Area] Erythrocytes [#/area] in Urine sediment by Automated count 0-4 [facility] Glucose [Mass/volume] in Uri ne by Test stripOrdered By: Nuvia Sanchez on 09-10-2024 Glucose Test strip (U) [Mass/Vol] Glucose [Mass/volume] in Urine by Test strip Normal [facility] Hemoglobin Test strip Ql (U) Ordered By: Nuvia Sanchez on 09-10-2024 Hemoglobin Ql (U) Hemoglobin [Presence ] in Urine by Test strip Negative [facility] Hyaline casts [#/area] in Ur ine sediment by Automated countOrdered By: Nuvia Sanchez on 09-10-2024 Hyaline casts Auto (Urine sed) [#/Area] Hyaline casts [#/area] in Urine sediment by Automated count 0-8 [facility] Ketones Test strip Ql (U)Ord ered By: Nuvia Sanchez on 09-10-2024 Ketones Ql (U) Ketones [Presence] i n Urine by Test strip Negative [facility] Leukocyte esterase [Presence ] in Urine by Test stripOrdered By: Nuvia Sanchez on 09-10-2024 Leukocyte esterase Test strip Ql (U) Leukocyte esterase [Presence] in Urine by Test strip Negative [facility] Leukocytes [#/area] in Urine sediment by Automated countOrdered By: Nuvia Sanchez on 09-10-2024 WBC Auto (Urine sed) [#/Area] Leukocytes [#/area] in Urine sediment by Automated count 0-4 [facility] Mucus [Presence] in Urine by AutomatedOrdered By: Nuvia Sanchez on 09-10-2024 Mucus Auto Ql (U) Mucus [Presence] in Urine by Automated [facility] Nitrite Test strip Ql (U)Ord ered By: Nuvia Sanchez on 09-10-2024 Nitrite Ql (U) Nitrite [Presence] i n Urine by Test strip Negative [facility] Protein Test strip (U) [Mass /Vol]Ordered By: Nuvia Sanchez on 09-10-2024 Protein (U) [Mass/Vol] Protein [Mass/volume] in Urine by Test strip Negative [facility] Specific gravity Test strip (U) [Rel density]Ordered By: Nuvia Sanchez on 09-10-2024 Specific gravity (U) [Rel density] Specific gravity of Urine by Test strip 1.001-1.03 0 [facility] Urate crystals [Presence] in Urine sediment by Computer assisted methodOrdered By: Nuvia Sanchez on 09-10-2024 Urate crystals [Presence] in Urine sediment by Computer assisted method Urate crystals [Presence] in Urine sediment by Computer assisted method [facility] Urobilinogen Test strip (U) [Mass/Vol]Ordered By: Nuvia Sanchez on 09-10-2024 Urobilinogen (U) [Mass/Vol] Urobilinogen [Mass/volume] in Urine by Test strip Normal [facility] pH Test strip (U)Ordered By: Nuvia Sanchez on 09-10-2024 pH (U) pH of Urine by Test strip 5.0-9.0 [facility] XR CHEST (2 VW)on 08-30-2024 XR CHEST (2 VW) EXAM: XR CHEST (2 VW ) HISTORY: Essential hypertension COMPARISON: 08/20/2023 TECHNIQUE: 2 views FINDINGS: The heart and mediastinum are unremarkable. Lungs are clear. No focal infiltrates are seen. No effusions are noted. IMPRESSION: No acute cardiopulmonary pathology. Interpreted by: Ora Macias MD Signed by: Ora Macias MD 08/30/24 Final result Normal [facility] Cult,Urineon 08-29-2024 Cult,Urine Specimen Description .CLEAN CATCH [...] Tobramycin <=1 SUSCEPTIBLE Trimethoprim/Sulfa <=20 SUSCEPTIBLE Susceptible [facility] Comment on above: Performed By: #### F ROYAL #### [facility] [address] [place] [address] Bed Laborer: Christian Muir MD CBC with Auto Differentialon 08-28-2024 Basophils (Bld) [#/Vol] 0.01 10*3/uL [facility] Basophils/100 WBC (Bld) 0 % 0 - 2 % [facility] Eosinophils (Bld) [#/Vol] 0.09 10*3/uL [facility] Eosinophils/100 WBC (Bld) 2 % 0 - 5 % [facility] Erythrocyte distribution width (RBC) [Ratio] 13.8 % 12.1 - 15.2 % [facility] Hematocrit (Bld) [Volume fraction] 37.7 % 36.0 - 46.0 % [facility] Hemoglobin (Bld) [Mass/Vol] 12.4 g/dL 12.0 - 16.0 g/dL [facility] Immature granulocytes (Bld) [#/Vol] 0.06 10*3/uL [facility] Immature granulocytes/100 WBC (Bld) 1 % 0 - 5 % [facility] Interpretation and review of laboratory results Abnormal [facility] Lymphocytes/100 WBC (Bld) 28 % 15 - 40 % [facility] Lymphocytes/100 WBC (Bld) 1.39 % [facility] MCH (RBC) [Entitic mass] 31.2 pg 26.0 - 34.0 pg [facility] MCHC (RBC) [Mass/Vol] 32.9 g/dL 31.0 - 37.0 g/dL [facility] MCV (RBC) [Entitic vol] 95.0 fL 80.0 - 100.0 fL [facility] Monocytes/100 WBC (Bld) 10 % High 4 - 8 % [facility] Monocytes/100 WBC (Bld) 0.49 % [facility] Neutrophils/100 WBC (Bld) 59 % 47 - 75 % [facility] Platelet mean volume (Bld) [Entitic vol] 9.5 fL 6.0 - 12.0 fL [facility] Platelets (Bld) [#/Vol] 213 10*3/uL [facility] RBC (Bld) [#/Vol] 3.97 10*6/uL Low 4.00 - 5.20 m/uL [facility] Segmented neutrophils/100 WBC (Bld) 2.99 % [facility] WBC other (Bld) [#/Vol] 5.0 [facility] CBC with Diffon 08-28-2024 Abs. Basophil 0.01 k/uL Normal 0.00-0.20 [facility] Comment on above: Performed By: #### C OVRB #### [facility] [address] [place] [address] Bed Laborer: Christian Muir MD Abs.Imm.Granulocyte 0.06 k/uL Normal 0.00-0.30 [facility] Comment on above: Performed By: #### C OVRB #### [facility] [address] [place] [id number] Bed Laborer: Christian Muir MD Abs.Neutrophil (Seg) 2.99 k/uL Normal 2.5-7.[address] [facility] Comment on above: Performed By: #### C OVRB #### [facility] [address] [place] [phone] Bed Laborer: Christian Muir MD Basophils/100 WBC (Bld) 0 % Normal 0-2 [facility] Comment on above: Performed By: #### C OVRB #### [facility] [address] [place] [address] Bed Laborer: Christian Muir MD Eosinophils (Bld) [#/Vol] 0.09 10*3/uL Normal 0.00-0.40 [facility] Comment on above: Performed By: #### C OVRB #### [facility] [address] [place] [phone] Bed Laborer: Christian Muir MD Eosinophils/100 WBC (Bld) 2 % Normal 0-5 [facility] Comment on above: Performed By: #### C OVRB #### [facility] [address] [place] [address] Bed Laborer: Christian Muir MD Erythrocyte distribution width (RBC) [Ratio] 13.8 % Normal 12.1-15.2 [facility] Comment on above: Performed By: #### C OVRB #### [facility] [address] [place] [phone] Bed Laborer: Christian Muir MD Hematocrit (Bld) [Volume fraction] 37.7 % Normal 36.0-46.0 [facility] Comment on above: Performed By: #### C OVRB #### [facility] [address] [place], [place] [phone] Bed Laborer: Christian Muir MD Hemoglobin (Bld) [Mass/Vol] 12.4 g/dL Normal 12.0-16.0 [facility] Comment on above: Performed By: #### C OVRB #### [facility] [address] [place], [place] [phone] Bed Laborer: Christian Muir MD Immature granulocytes/100 WBC (Bld) 1 % Normal 0-5 [facility] Comment on above: Performed By: #### C OVRB #### [facility] [address] [place] [address] Bed Laborer: Christian Muir MD Lymphocytes (Bld) [#/Vol] 1.39 10*3/uL Normal 1.00-4.80 [facility] Comment on above: Performed By: #### C OVRB #### [facility] [address] [place] [address] Bed Laborer: Christian Muir MD Lymphocytes/100 WBC (Bld) 28 % Normal 15-40 [facility] Comment on above: Performed By: #### C OVRB #### [facility] [address] [place] [address] Bed Laborer: Christian Muir MD MCH (RBC) [Entitic mass] 31.2 pg Normal 26.0-34.0 [facility] Comment on above: Performed By: #### C OVRB #### [facility] [address] [place], [place] [phone] Bed Laborer: Christian Muir MD MCHC (RBC) [Mass/Vol] 32.9 g/dL Normal 31.0-37.0 [facility] Comment on above: Performed By: #### C OVRB #### [facility] [address] [place] [address] Bed Laborer: Christian Muir MD MCV (RBC) [Entitic vol] 95.0 fL Normal 80.0-100.0 [facility] Comment on above: Performed By: #### C OVRB #### [facility] [address] [place] [address] (227) Bed Laborer: Christian Muir MD Monocytes (Bld) [#/Vol] 0.49 10*3/uL Normal 0.00-1.00 [facility] Comment on above: Performed By: #### C OVRB #### [facility] [address] [place] [address] (980) Bed Laborer: Christian Muir MD Monocytes/100 WBC (Bld) 10 % High 4-8 [facility] Comment on above: Performed By: #### C OVRB #### [facility] [address] [place] [address] (078) Bed Laborer: Christian Muir MD Neutrophil (Seg) 59 % Normal 47-75 [facility] Comment on above: Performed By: #### C OVRB #### [facility] [address] [place] [address] (352) Bed Laborer: Christian Muir MD Platelet mean volume (Bld) [Entitic vol] 9.5 fL Normal 6.0-12.0 [facility] Comment on above: Performed By: #### C OVRB #### [facility] [address] [place] [address] (808) Bed Laborer: Christian Muir MD Platelets (Bld) [#/Vol] 213 10*3/uL Normal 140-450 [facility] Comment on above: Performed By: #### C OVRB #### [facility] [address] [place] [address] (021) Bed Laborer: Christian Muir MD RBC (Bld) [#/Vol] 3.97 10*6/uL Low 4.00-5.20 [facility] Comment on above: Performed By: #### C OVRB #### [facility] [address] [place], [place] [phone] Bed Laborer: Christian Muir MD WBC (Bld) [#/Vol] 5.0 10*3/uL Normal 3.5-11.0 [facility] Comment on above: Performed By: #### C OVRB #### [facility] [address] [place], [place] [phone] Bed Laborer: Christian Muir MD Comp Metabolic Profon 2024 Albumin [Mass/Vol] 4.0 g/dL Normal 3.5-5.2 [facility] Comment on above: Performed By: #### C OVRB #### [facility] [address] [place], [place] [phone] Bed Laborer: Christian Muir MD Albumin/Glob Ratio 1.6 Normal 1.0-2.5 [facility] Comment on above: Performed By: #### C OVRB #### [facility] [address] [place], [place] [phone] Bed Laborer: Christian Muir MD Alkaline Phos 58 U/L Normal 35-104 [facility] Comment on above: Performed By: #### C OVRB #### [facility] [address] [place], [place] [phone] Bed Laborer: Christian Muir MD ALT [Catalytic activity/Vol] 11 U/L Normal 5-33 [facility] Comment on above: Performed By: #### C OVRB #### [facility] [address] [place], [place] [phone] Bed Laborer: Christian Muir MD Anion gap [Moles/Vol] 11 mmol/L Normal 9-17 [facility] Comment on above: Performed By: #### C OVRB #### [facility] [address] [place], [place] [phone] Bed Laborer: Christian Muir MD AST [Catalytic activity/Vol] 17 U/L Normal <32 [facility] Comment on above: Performed By: #### C OVRB #### [facility] [address] [place], [place] [phone] Bed Laborer: Christian Muir MD Bilirubin [Mass/Vol] 0.5 mg/dL Normal 0.3-1.[address] [facility] Comment on above: Performed By: #### C OVRB #### [facility] [address] [place] [address] Bed Laborer: Christian Muir MD Calcium [Mass/Vol] 9.4 mg/dL Normal 8.6-10.4 [facility] Comment on above: Performed By: #### C OVRB #### [facility] [address] [place] [address] Bed Laborer: Christian Muir MD Chloride [Moles/Vol] 105 mmol/L Normal 98-[address] [facility] Comment on above: Performed By: #### C OVRB #### [facility] [address] [place] [address] Bed Laborer: Christian Muir MD CO2 [Moles/Vol] 26 mmol/L Normal 20-31 [facility] Comment on above: Performed By: #### C OVRB #### [facility] [address] [place], [place] [phone] Bed Laborer: Christian Muir MD Creatinine [Mass/Vol] 1.3 mg/dL High 0.5-0.9 [facility] Comment on above: Performed By: #### C OVRB #### [facility] [address] [place] [address] Bed Laborer: Christian Muir MD GFR/1.73 sq M.predicted among non-blacks MDRD (S/P/Bld) [Vol rate/Area] 42 mL/min/{1.73_m2} Low >60 [facility] Comment on above: Result Comment: These [...] secretion. Performed By: #### C OVRB #### [facility] [address] [place] [address] Bed Laborer: Christian Muir MD Glucose [Mass/Vol] 96 mg/dL Normal 70-99 [facility] Comment on above: Performed By: #### C OVRB #### [facility] [address] [place] [address] Bed Laborer: Christian Muir MD Potassium [Moles/Vol] 4.2 mmol/L Normal 3.7-5.3 [facility] Comment on above: Performed By: #### C OVRB #### [facility] [address] [place] [address] Bed Laborer: Christian Muir MD Protein [Mass/Vol] 6.5 g/dL Normal 6.4-8.3 [facility] Comment on above: Performed By: #### C OVRB #### [facility] [address] [place] [address] Bed Laborer: Christian Muir MD Sodium [Moles/Vol] 142 mmol/L Normal 135-144 [facility] Comment on above: Performed By: #### C OVRB #### [facility] [address] [place], [place] [phone] Bed Laborer: Christian Muir MD Urea nitrogen [Mass/Vol] 28 mg/dL High 8-23 [facility] Comment on above: Performed By: #### C OVRB #### [facility] [address] [place] [address] Bed Laborer: Christian Muir MD Comprehensive Metabolic Pane [facility] 08-28-2024 Albumin [Mass/Vol] 4.0 g/dL 3.5 - 5.2 g/dL [facility] Albumin/Globulin [Mass ratio] 1.6 {ratio} 1.0 - 2.5 [facility] ALP [Catalytic activity/Vol] 58 U/L 35 - 104 U/L [facility] ALT [Catalytic activity/Vol] 11 U/L 5 - 33 U/L [facility] Anion gap [Moles/Vol] 11 mmol/L 9 - 17 mmol/L [facility] AST [Catalytic activity/Vol] 17 U/L NINF - 32 U/L [facility] Bilirubin [Mass/Vol] 0.5 mg/dL 0.3 - 1 .2 mg/dL [facility] Calcium [Mass/Vol] 9.4 mg/dL 8.6 - 10. 4 mg/dL [facility] Chloride [Moles/Vol] 105 mmol/L 98 - 10 7 mmol/L [facility] CO2 [Moles/Vol] 26 mmol/L 20 - 31 mmol/L [facility] Creatinine [Mass/Vol] 1.3 mg/dL High 0.5 - 0.9 mg/dL [facility] Est, Glom Filt Rate 42 Low - PINF [facility] Comment on above: These results are not [...] [Mass/Vol] 96 mg/dL 70 - 99 mg/dL [facility] Interpretation and review of laboratory results Abnormal [facility] Potassium [Moles/Vol] 4.2 mmol/L 3.7 - 5.3 mmol/L [facility] Protein [Mass/Vol] 6.5 g/dL 6.4 - 8.3 g/dL [facility] Sodium [Moles/Vol] 142 mmol/L 135 - 144 mmol/L [facility] Urea nitrogen [Mass/Vol] 28 mg/dL High 8 - 23 mg/dL [facility] Lipid Panelon 08-28-2024 Cholesterol [Mass/Vol] 145 mg/dL 0 - 199 mg/dL [facility] Comment on above: Cholesterol Guidelines: <200 Desirable 200-240 Borderline >240 Undesirable Cholesterol in HDL [Mass/Vol] 52 mg/dL 40 - PINF mg/dL [facility] Comment on above: HDL Guidelines: <40 Undesirable 40-59 Borderline >59 Desirable Cholesterol in LDL [Mass/Vol] 74 mg/dL 0 - 100 mg/dL [facility] Comment on above: LDL Guidelines: <100 Desirable 100-129 Near to/above Desirable 130-159 Borderline >159 Undesirable Direct (measured) LDL and calculated LDL are not interchangeable tests. Cholesterol in VLDL [Mass/Vol] 19 mg/dL 1 - 30 mg/dL [facility] Cholesterol.total/Cho lesterol in HDL [Mass ratio] 2.8 {ratio} [facility] Triglyceride [Mass/Vol] 94 mg/dL NINF - 150 mg/dL [facility] Comment on above: Triglyceride Guidelines: <150 Desirable 150-199 Borderline 200-499 High >499 Very high Based on AHA Guidelines for fasting triglyceride, March 2012. Lipid Profileon 08-28-2024 Cholesterol [Mass/Vol] 145 mg/dL Normal 0-199 [facility] Comment on above: Result Comment: Cholesterol Guidelines: <200 Desirable 200-240 Borderline >240 Undesirable Performed By: #### C OVRB #### [facility] [address] [place] [address] Bed Laborer: Christian Muir MD Cholesterol in HDL [Mass/Vol] 52 mg/dL Normal >40 [facility] Comment on above: Result Comment: HDL Guidelines: <40 Undesirable 40-59 Borderline >59 Desirable Performed By: #### C OVRB #### [facility] [address] [place] [address] Bed Laborer: Christian Muir MD Cholesterol in LDL [Mass/Vol] 74 mg/dL Normal 0-100 [facility] Comment on above: Result Comment: LDL Guidelines: <100 Desirable 100-129 Near to/above Desirable 130-159 Borderline >159 Undesirable Direct (measured) LDL and calculated LDL are not interchangeable tests. Performed By: #### C OVRB #### [facility] [address] [place], [place] [id number] Bed Laborer: Christian Muir MD Cholesterol in VLDL [Mass/Vol] 19 mg/dL Normal 1-30 [facility] Comment on above: Performed By: #### C OVRB #### [facility] [address] [place] [address] Bed Laborer: Christian Muir MD Cholesterol.total/Cho lesterol in HDL [Mass ratio] 2.8 {ratio} Normal [facility] Comment on above: Performed By: #### C OVRB #### [facility] [address] [place], [place] [id number] Bed Laborer: Christian Muir MD Triglyceride [Mass/Vol] 94 mg/dL Normal <150 [facility] Comment on above: Result Comment: Triglyceride Guidelines: <150 Desirable 150-199 Borderline 200-499 High >499 Very high Based on AHA Guidelines for fasting triglyceride, March 2012. Performed By: #### C OVRB #### [facility] [address] [place] [address] Bed Laborer: Christian Muir MD Magnesiumon 08-28-2024 Magnesium [Mass/Vol] 2.2 mg/dL 1.6 - 2 .6 mg/dL [facility] Magnesium [Mass/Vol] 2.2 mg/dL Normal 1.6-2.[address] [facility] Comment on above: Performed By: #### C OVRB #### [facility] [address] [place], [place] [id number] Bed Laborer: Christian Muir MD No Panel Informationon 08-28 [facility] TSH w/reflex to FT4on 2024 Thyroid Stim. Horm. 2.59 uIU/mL Normal 0.27-4.[address] [facility] Comment on above: Performed By: #### C OVRB #### [facility] [address] [place] [address] Bed Laborer: Christian Muir MD TSH with Reflexon 08-28-2024 TSH Qn 2.59 m[IU]/L [facility] Vitamin D 25 Hydroxyon 08-28 25-hydroxyvitamin D3 [Mass/Vol] 89.9 ng/mL 30.0 - 100.0 ng/mL [facility] Comment on above: Reference Range: Vitamin D status Range Deficiency <20 ng/mL Mild Deficiency 20-30 ng/mL Sufficiency 30-100 ng/mL Toxicity >100 ng/mL Vitamin D 25 OHon 08-28-2024 Vitamin D 25 OH 89.9 ng/mL Normal 30.0-100.0 [facility] Comment on above: Result Comment: Reference Range: Vitamin D status Range Deficiency <20 ng/mL Mild Deficiency 20-30 ng/mL Sufficiency 30-100 ng/mL Toxicity >100 ng/mL Performed By: #### C OVRB #### [facility] [address] [place] [address] Bed Laborer: Christian Muir MD Alanine aminotransferase [En zymatic activity/volume] in Serum or PlasmaOrdered By: Obie Hylton on 08-11-2024 ALT [Catalytic activity/Vol] Alanine aminotransferase [Enzymatic activity/volume] in Serum or Plasma [facility] Albumin [Mass/volume] in Ser um or Plasma by Bromocresol green (BCG) dye binding methoOrdered By: Obie Hylton on 08-11-2024 Albumin BCG dye [Mass/Vol] Albumin [Mass/volume] in Serum or Plasma by Bromocresol green (BCG) dye binding metho 3.5-5.7 [facility] Alkaline phosphatase [Enzyma tic activity/volume] in Serum or PlasmaOrdered By: Obie Hylton on 08-11-2024 ALP [Catalytic activity/Vol] Alkaline phosphatase [Enzymatic activity/volume] in Serum or Plasma 34-104 [facility] Appearance of UrineOrdered B y: Obie Hylton on 08-11-2024 Appearance (U) Urine appearance Clear [facility] Aspartate aminotransferase [ Enzymatic activity/volume] in Serum or PlasmaOrdered By: Obie Hylton on 08-11-2024 AST [Catalytic activity/Vol] Aspartate aminotransferase [Enzymatic activity/volume] in Serum or Plasma 13-39 [facility] Bacteria [Presence] in Urine by AutomatedOrdered By: Obie Hylton on 08-11-2024 Bacteria Auto Ql (U) Bacteria [Presence] in Urine by Automated None Seen [facility] Basophils Auto (Bld) [#/Vol] Ordered By: Obie Hylton on 08-11-2024 Basophils (Bld) [#/Vol] Automated basophil count 0.0-0.2 [facility] Basophils/100 WBC Auto (Bld) Ordered By: Obie Hylton on 08-11-2024 Basophils/100 WBC (Bld) Automated basophil % . [facility] Bilirubin Test strip Ql (U)O rdered By: Obie Hylton on 08-11-2024 Bilirubin Ql (U) Bilirubin.total [Pre sence] in Urine by Test strip Negative [facility] Bilirubin.total [Mass/volume ] in Serum or PlasmaOrdered By: Obie Hylton on 08-11-2024 Bilirubin [Mass/Vol] Bilirubin.total [Mass/volume] in Serum or Plasma 0.3-1.0 [facility] Calcium [Mass/volume] in Ser um or PlasmaOrdered By: Obie Hylton on 08-11-2024 Calcium [Mass/Vol] Calcium [Mass/volume ] in Serum or Plasma 8.6-10.3 [facility] Carbon dioxide, total [Moles /volume] in Serum or PlasmaOrdered By: Obie Hylton on 08-11-2024 CO2 [Moles/Vol] Carbon dioxide, tota l [Moles/volume] in Serum or Plasma 21.0-31.0 [facility] Chloride [Moles/volume] in S liat or PlasmaOrdered By: Obie Hylton on 08-11-2024 Chloride [Moles/Vol] Chloride [Moles/vol ume] in Serum or Plasma 98-107 [facility] Color Auto (U)Ordered By: Cindy gonzalezjesus Warner on 08-11-2024 Color (U) Color of Urine by Auto Yellow Fi [facility] Complement C3on 08-11-2024 Complement C3 130 mg/dL Normal 82-167 [facility] Comment on above: Order Comment: MAHSA LARRY Name Collection Type:: Clean-Voided Midstream Performed By: #### E SR, CMP, ADDONUAPLUS, CBC #### [address] #### C3, CH50, C4 #### [facility] , Complement C4on 08-11-2024 Complement C4 23 mg/dL Normal 12-38 [facility] Comment on above: Order Comment: MAHSA LARRY Name Collection Type:: Clean-Voided Midstream Result Comment: Perf ormed at: CB - [facility] [place] [id number] Bed Laborer: Usman Draper PhD, Phone: [phone] PERFORMED BY: [place] [address] PATHOLOGIST PLASTIC MANAGER DOMINICK MONTIEL M.D. Performed By: #### E SR, CMP, ADDONUAPLUS, CBC #### [address] #### C3, CH50, C4 #### [facility] , Complement Total (CH50)on Complement Total (CH50) 54 Normal >41 [facility] Comment on above: Order Comment: MAHSA LARRY Name Collection Type:: Clean-Voided Midstream Result Comment: Age Male Female 1 - [...] out of range values. Performed at: - [facility] [id number] Bed Laborer: Usman Draper PhD, Phone: [phone] PERFORMED BY: [place] [address] PATHOLOGIST PLASTIC MANAGER DOMINICK MONTIEL M.D. Performed By: #### E SR, CMP, ADDONUAPLUS, CBC #### [address] #### C3, CH50, C4 #### [facility] , Complete Blood Count Auto Di ffon 08-11-2024 Basophils (Bld) [#/Vol] 0.0 10*3/uL Normal 0.0-0.2 [facility] Comment on above: Performed By: #### E SR, ADDONUAPLUS, CBC, CMP #### [place] [address] [place] #### C3, C4, CH50 #### [facility] , Basophils/100 WBC (Bld) 0.3 % Normal . [facility] Comment on above: Performed By: #### E SR, ADDONUAPLUS, CBC, CMP #### [place] [address] [place] #### C3, C4, CH50 #### [facility] , Eosinophils (Bld) [#/Vol] 0.1 10*3/uL Normal 0.0-0.45 [facility] Comment on above: Performed By: #### E SR, ADDONUAPLUS, CBC, CMP #### [place] [address] [place] #### C3, C4, CH50 #### [facility] , Eosinophils/100 WBC (Bld) 1.9 % Normal . [facility] Comment on above: Performed By: #### E SR, ADDONUAPLUS, CBC, CMP #### [place] [address] [place] #### C3, C4, CH50 #### [facility] , Erythrocyte distribution width (RBC) [Ratio] 14.6 % Normal 11.9-15.3 [facility] Comment on above: Performed By: #### E SR, ADDONUAPLUS, CBC, CMP #### [place] [address] [place] #### C3, C4, CH50 #### [facility] , Hematocrit (Bld) [Volume fraction] 36.0 % Normal 34.0-46.4 [facility] Comment on above: Performed By: #### E SR, ADDONUAPLUS, CBC, CMP #### [address] #### C3, C4, CH50 #### [facility] , Hemoglobin (Bld) [Mass/Vol] 12.3 g/dL Normal 11.8-15.4 [facility] Comment on above: Performed By: #### E SR, ADDONUAPLUS, CBC, CMP #### [place] [address] [place] #### C3, C4, CH50 #### [facility] , Lymphocytes (Bld) [#/Vol] 1.2 10*3/uL Normal 1.00-4.8 [facility] Comment on above: Performed By: #### E SR, ADDONUAPLUS, CBC, CMP #### [place] [address] [place] #### C3, C4, CH50 #### [facility] , Lymphocytes/100 WBC (Bld) 24.1 % Normal . [facility] Comment on above: Performed By: #### E SR, ADDONUAPLUS, CBC, CMP #### [place] [address] [place] #### C3, C4, CH50 #### [facility] , MCH (RBC) [Entitic mass] 31.9 pg Normal 24.7-34.3 [facility] Comment on above: Performed By: #### E SR, ADDONUAPLUS, CBC, CMP #### [address] #### C3, C4, CH50 #### [facility] , MCV (RBC) [Entitic vol] 93.7 fL Normal 80-100 [facility] Comment on above: Performed By: #### E SR, ADDONUAPLUS, CBC, CMP #### [address] #### C3, C4, CH50 #### [facility] , Mean Corpuscular HGB Conc 34.0 g/dL Normal 32.0-35.0 [facility] Comment on above: Performed By: #### E SR, ADDONUAPLUS, CBC, CMP #### [address] #### C3, C4, CH50 #### [facility] , Monocytes (Bld) [#/Vol] 0.4 10*3/uL Normal 0.0-0.8 [facility] Comment on above: Performed By: #### E SR, ADDONUAPLUS, CBC, CMP #### [place] [address] [place] #### C3, C4, CH50 #### [facility] , Monocytes/100 WBC (Bld) 7.7 % Normal . [facility] Comment on above: Performed By: #### E SR, ADDONUAPLUS, CBC, CMP #### [place] [address] [place] #### C3, C4, CH50 #### [facility] , Neutrophils (Bld) [#/Vol] 3.4 10*3/uL Normal 1.8-7.7 [facility] Comment on above: Performed By: #### E SR, ADDONUAPLUS, CBC, CMP #### [address] #### C3, C4, CH50 #### [facility] , Neutrophils/100 WBC (Bld) 66.0 % Normal . [facility] Comment on above: Performed By: #### E SR, ADDONUAPLUS, CBC, CMP #### [address] #### C3, C4, CH50 #### [facility] , NRBC% 0.1 /100{WBC} Normal 0-0.5 [facility] Comment on above: Performed By: #### E SR, ADDONUAPLUS, CBC, CMP #### [place] [address] [place] #### C3, C4, CH50 #### [facility] , Platelet mean volume (Bld) [Entitic vol] 8.4 fL Normal 6.3-10.7 [facility] Comment on above: Performed By: #### E SR, ADDONUAPLUS, CBC, CMP #### [address] #### C3, C4, CH50 #### [facility] , Platelets (Bld) [#/Vol] 228 10*3/uL Normal 150-450 [facility] Comment on above: Performed By: #### E SR, ADDONUAPLUS, CBC, CMP #### [place] [address] [place] #### C3, C4, CH50 #### [facility] , RBC (Bld) [#/Vol] 3.85 10*6/uL Normal 3.60-5.00 [facility] Comment on above: Performed By: #### E SR, ADDONUAPLUS, CBC, CMP #### [address] #### C3, C4, CH50 #### [facility] , WBC (Bld) [#/Vol] 5.1 10*3/uL Normal 3.8-11.6 The Count includes the [facility] Comment on above: Performed By: #### E SR, ADDONUAPLUS, CBC, CMP #### [address] #### C3, C4, CH50 #### [facility] , Comprehensive Metabolic Pane trevor 08-11-2024 Albumin [Mass/Vol] 4.0 g/dL Normal 3.5-5.7 The Count includes the [facility] Comment on above: Performed By: #### E SR, ADDONUAPLUS, CBC, CMP #### [address] #### C3, C4, CH50 #### [facility] , Albumin/Globulin [Mass ratio] 1.7 {ratio} Normal [facility] Comment on above: Performed By: #### E SR, ADDONUAPLUS, CBC, CMP #### [address] #### C3, C4, CH50 #### [facility] , ALP [Catalytic activity/Vol] 54 U/L Normal 34-104 [facility] Comment on above: Result Comment: PERF ORMED BY: [place] [address] PATHOLOGIST PLASTIC MANAGER DOMINICK MONTIEL M.D. Performed By: #### E SR, ADDONUAPLUS, CBC, CMP #### [place] [address] [place] #### C3, C4, CH50 #### [facility] , ALT [Catalytic activity/Vol] 11 U/L Normal 7-52 [facility] Comment on above: Performed By: #### E SR, ADDONUAPLUS, CBC, CMP #### [facility] [address] [place] [address] [place] #### C3, C4, CH50 #### [facility] , Anion gap [Moles/Vol] 10.1 mmol/L Normal 6.0-15.0 [facility] Comment on above: Performed By: #### E SR, ADDONUAPLUS, CBC, CMP #### [facility] [address] [place] [address] [place] #### C3, C4, CH50 #### [facility] , AST [Catalytic activity/Vol] 16 U/L Normal 13-39 [facility] Comment on above: Performed By: #### E SR, ADDONUAPLUS, CBC, CMP #### [address] #### C3, C4, CH50 #### [facility] , Bilirubin [Mass/Vol] 0.5 mg/dL Normal 0.3-1.0 [facility] Comment on above: Performed By: #### E SR, ADDONUAPLUS, CBC, CMP #### [facility] [address] [place] [address] [place] #### C3, C4, CH50 #### [facility] , Calcium [Mass/Vol] 9.3 mg/dL Normal 8.6-10.3 The Count includes the [facility] Comment on above: Performed By: #### E SR, ADDONUAPLUS, CBC, CMP #### [place] [address] [place] #### C3, C4, CH50 #### [facility] , Chloride [Moles/Vol] 107 mmol/L Normal 98-107 [facility] Comment on above: Performed By: #### E SR, ADDONUAPLUS, CBC, CMP #### [facility] [address] [place] [address] [place] #### C3, C4, CH50 #### [facility] , CO2 [Moles/Vol] 27.1 mmol/L Normal 21.0-31.0 [facility] Comment on above: Performed By: #### E SR, ADDONUAPLUS, CBC, CMP #### [address] #### C3, C4, CH50 #### [facility] , Creatinine [Mass/Vol] 1.30 mg/dL High 0.60-1.20 [facility] Comment on above: Performed By: #### E SR, ADDONUAPLUS, CBC, CMP #### [place] [address] [place] #### C3, C4, CH50 #### [facility] , Estimated GFR 41.829 mL/Min Normal [facility] Comment on above: Performed By: #### E SR, ADDONUAPLUS, CBC, CMP #### [address] #### C3, C4, CH50 #### [facility] , Globulin (S) [Mass/Vol] 2.3 g/dL Normal [facility] Comment on above: Performed By: #### E SR, ADDONUAPLUS, CBC, CMP #### [address] #### C3, C4, CH50 #### [facility] , Glucose [Mass/Vol] 94 mg/dL Normal 70-100 The Count includes the [facility] Comment on above: Result Comment: [place] Glucose Reference Range is dependent on time and content of last meal. Glucose of more than 200 mg/dL in a nonstressed, ambulatory subject supports the diagnosis of Diabetes Mellitus. ADA recommended reference range Performed By: #### E SR, ADDONUAPLUS, CBC, CMP #### [place] [address] [place] #### C3, C4, CH50 #### [facility] , Potassium [Moles/Vol] 4.2 mmol/L Normal 3.5-5.1 [facility] Comment on above: Performed By: #### E SR, ADDONUAPLUS, CBC, CMP #### [place] [address] [place] #### C3, C4, CH50 #### [facility] , Protein [Mass/Vol] 6.3 g/dL Low 6.4-8.9 The Count includes the [facility] Comment on above: Performed By: #### E SR, ADDONUAPLUS, CBC, CMP #### [place] [address] [place] #### C3, C4, CH50 #### [facility] , Sodium [Moles/Vol] 140 mmol/L Normal 136-145 The Count includes the [facility] Comment on above: Performed By: #### E SR, ADDONUAPLUS, CBC, CMP #### [address] #### C3, C4, CH50 #### [facility] , Urea nitrogen [Mass/Vol] 30 mg/dL High 7-25 [facility] Comment on above: Performed By: #### E SR, ADDONUAPLUS, CBC, CMP #### [place] [address] [place] #### C3, C4, CH50 #### [facility] , Creatinine [Mass/volume] in Serum or PlasmaOrdered By: Obie Hylton on 08-11-2024 Creatinine [Mass/Vol] Creatinine [Mass/v olume] in Serum or Plasma High 0.60-1.20 [facility] Dipstick and Microscopicon 0 08-11-2024 Appearance (U) Clear Normal Clear [facility] Comment on above: Order Comment: MAHSA CHIANGJKW Name Collection Type:: Clean-Voided Midstream Performed By: #### E SR, CMP, ADDONUAPLUS, CBC #### [place] [address] [place] #### C3, CH50, C4 #### [facility] , Bacteria,Urine Rare Normal None Seen [facility] Comment on above: Order Comment: FASTI NG.JKW Name Collection Type:: Clean-Voided Midstream Performed By: #### E SR, CMP, ADDONUAPLUS, CBC #### [address] #### C3, CH50, C4 #### [facility] , Bilirubin,Urine Negative Normal Negative The [facility] Comment on above: Order Comment: FASTI NG.JKW Name Collection Type:: Clean-Voided Midstream Performed By: #### E SR, CMP, ADDONUAPLUS, CBC #### [address] #### C3, CH50, C4 #### [facility] , Color (U) Yellow Normal Yellow [facility] Comment on above: Order Comment: FASTI NG.JKW Name Collection Type:: Clean-Voided Midstream Performed By: #### E SR, CMP, ADDONUAPLUS, CBC #### [address] #### C3, CH50, C4 #### [facility] , Glucose Ql (U) Normal Normal Normal [facility] Comment on above: Order Comment: FASTI NG.JKW Name Collection Type:: Clean-Voided Midstream Performed By: #### E SR, CMP, ADDONUAPLUS, CBC #### [place] [address] [place] #### C3, CH50, C4 #### [facility] , Hyaline Casts,Urine 0-8 Normal 0-8 [facility] Comment on above: Order Comment: FASTI NG.JKW Name Collection Type:: Clean-Voided Midstream Performed By: #### E SR, CMP, ADDONUAPLUS, CBC #### [address] #### C3, CH50, C4 #### [facility] , Ketones Ql (U) Negative Normal Negative [facility] Comment on above: Order Comment: FASTI NG.JKW Name Collection Type:: Clean-Voided Midstream Performed By: #### E SR, CMP, ADDONUAPLUS, CBC #### [address] #### C3, CH50, C4 #### [facility] , Leukocyte esterase Test strip Ql (U) Negative Normal Negative [facility] Comment on above: Order Comment: FASTI NG.JKW Name Collection Type:: Clean-Voided Midstream Performed By: #### E SR, CMP, ADDONUAPLUS, CBC #### [address] #### C3, CH50, C4 #### [facility] , Mucus,Urine Rare Normal [facility] Comment on above: Order Comment: FASTI NG.JKW Name Collection Type:: Clean-Voided Midstream Result Comment: PERF ORMED BY: [place] [address] PATHOLOGIST PLASTIC MANAGER DOMINICK MONTEIL M.D. Performed By: #### E SR, CMP, ADDONUAPLUS, CBC #### [address] #### C3, CH50, C4 #### [facility] , Nitrite,Urine Negative Normal Negative [facility] Comment on above: Order Comment: FASTI NG.JKW Name Collection Type:: Clean-Voided Midstream Performed By: #### E SR, CMP, ADDONUAPLUS, CBC #### [address] #### C3, CH50, C4 #### [facility] , Occult Blood,Urine Negative Normal Negative The Count includes the [facility] Comment on above: Order Comment: FASTI NG.JKW Name Collection Type:: Clean-Voided Midstream Performed By: #### E SR, CMP, ADDONUAPLUS, CBC #### [address] #### C3, CH50, C4 #### [facility] , pH (U) 6.0 [pH] Normal 5.0-9.0 [facility] Comment on above: Order Comment: FASTI NG.JKW Name Collection Type:: Clean-Voided Midstream Performed By: #### E SR, CMP, ADDONUAPLUS, CBC #### [address] #### C3, CH50, C4 #### [facility] , Protein,Urine Negative Normal Negative [facility] Comment on above: Order Comment: FASTI NG.JKW Name Collection Type:: Clean-Voided Midstream Performed By: #### E SR, CMP, ADDONUAPLUS, CBC #### [place] [address] [place] #### C3, CH50, C4 #### [facility] , RBC,Urine 3-4 Normal 0-4 [facility] Comment on above: Order Comment: FASTI NG.JKW Name Collection Type:: Clean-Voided Midstream Performed By: #### E SR, CMP, ADDONUAPLUS, CBC #### [address] #### C3, CH50, C4 #### [facility] , Specificy [place],Urine 1.023 Normal 1.001-1.03 0 [facility] Comment on above: Order Comment: FASTI NG.JKW Name Collection Type:: Clean-Voided Midstream Performed By: #### E SR, CMP, ADDONUAPLUS, CBC #### [place] [address] [place] #### C3, CH50, C4 #### [facility] , Squamous Epithelial Cell,Urine 3-4 High 0-2 [facility] Comment on above: Order Comment: FASTI NG.JKW Name Collection Type:: Clean-Voided Midstream Performed By: #### E SR, CMP, ADDONUAPLUS, CBC #### [facility] [address] [place] [address] [place] #### C3, CH50, C4 #### [facility] , Urobilinogen,Urine 3 mg/dL High Normal The Count includes the [facility] Comment on above: Order Comment: FASTI NG.JKW Name Collection Type:: Clean-Voided Midstream Performed By: #### E SR, CMP, ADDONUAPLUS, CBC #### [place] [address] [place] #### C3, CH50, C4 #### [facility] , WBC,Urine 1-2 Normal 0-4 [facility] Comment on above: Order Comment: FASTI [id number] Name Collection Type:: Clean-Voided Midstream Performed By: #### E SR, CMP, ADDONUAPLUS, CBC #### [facility] [address] [place] [address] [place] #### C3, CH50, C4 #### [facility] , Eosinophils Auto (Bld) [#/Vo l]Ordered By: Obie Hylton on 08-11-2024 Eosinophils (Bld) [#/Vol] Automated eosinophil count 0.0-0.45 [facility] Eosinophils/100 WBC Auto (Bl d)Ordered By: Obie Hylton on 08-11-2024 Eosinophils/100 WBC (Bld) Automated eosinophil % . [facility] Epithelial cells.squamous [# /area] in Urine sediment by Automated countOrdered By: Obie Hylton on 08-11-2024 Epithelial cells.squamous Auto (Urine sed) [#/Area] Epithelial cells.squamous [#/area] in Urine sediment by Automated count High 0-2 [facility] Erythrocyte Sedimentation Ra heather 08-11-2024 ESR (Bld) [Velocity] 23 mm/h Normal 0-29 [facility] Comment on above: Result Comment: PERF ORMED BY: [facility] [address] [place] [address] PATHOLOGIST PLASTIC MANAGER DOMINICK MONTIEL M.D. Performed By: #### E SR, ADDONUAPLUS, CBC, CMP #### [facility] [address] [place] [address] [place] #### C3, C4, CH50 #### [facility] , Erythrocyte distribution wid th Auto (RBC) [Ratio]Ordered By: Obie Hylton on 08-11-2024 Erythrocyte distribution width (RBC) [Ratio] Erythrocyte distribution width [Ratio] by Automated count 11.9-15.3 [facility] Erythrocyte sedimentation ra te by Photometric methodOrdered By: Obie Hylton on 08-11-2024 ESR Photometric method (Bld) [Velocity] Erythrocyte sedimentation rate by Photometric method 0-29 [facility] Erythrocytes [#/area] in Uri ne sediment by Automated countOrdered By: Obie Hylton on 08-11-2024 RBC Auto (Urine sed) [#/Area] Erythrocytes [#/area] in Urine sediment by Automated count 0-4 [facility] Globulin Calc (S) [Mass/Vol] Ordered By: Obie Hylton on 08-11-2024 Globulin (S) [Mass/Vol] Serum globulin measurement by calculation (mass/volume) [facility] Glucose [Mass/volume] in Ser um or PlasmaOrdered By: Obie Hylton on 08-11-2024 Glucose [Mass/Vol] Glucose [Mass/volume ] in Serum or Plasma 70-100 [facility] Comment on above: ADA recommended refe [...] [Mass/volume] in Urine by Test strip Normal [facility] Hematocrit Auto (Bld) [Volum e fraction]Ordered By: Obie Hylton on 08-11-2024 Hematocrit (Bld) [Volume fraction] Hematocrit [Volume Fraction] of Blood by Automated count 34.0-46.4 [facility] Hemoglobin Test strip Ql (U) Ordered By: Obie Hylton on 08-11-2024 Hemoglobin Ql (U) Hemoglobin [Presence ] in Urine by Test strip Negative [facility] Hemoglobin [Mass/volume] in BloodOrdered By: Obie Hylton on 08-11-2024 Hemoglobin (Bld) [Mass/Vol] Hemoglobin [Mass/volume] in Blood 11.8-15.4 [facility] Hyaline casts [#/area] in Ur ine sediment by Automated countOrdered By: Obie Hylton on 08-11-2024 Hyaline casts Auto (Urine sed) [#/Area] Hyaline casts [#/area] in Urine sediment by Automated count 0-8 [facility] Ketones Test strip Ql (U)Ord ered By: Obie Hylton on 08-11-2024 Ketones Ql (U) Ketones [Presence] i n Urine by Test strip Negative [facility] Leukocyte esterase [Presence ] in Urine by Test stripOrdered By: Obie Hylton on 08-11-2024 Leukocyte esterase Test strip Ql (U) Leukocyte esterase [Presence] in Urine by Test strip Negative [facility] Leukocytes [#/area] in Urine sediment by Automated countOrdered By: Obie Hylton on 08-11-2024 WBC Auto (Urine sed) [#/Area] Leukocytes [#/area] in Urine sediment by Automated count 0-4 [facility] Leukocytes [#/volume] correc pepito for nucleated erythrocytes in Blood by Automated counOrdered By: Obie Hylton on 08-11-2024 WBC corrected for nucl RBC Auto (Bld) [#/Vol] Leukocytes [#/volume] corrected for nucleated erythrocytes in Blood by Automated coun 3.8-11.6 [facility] Lymphocytes Auto (Bld) [#/Vo l]Ordered By: Obie Hylton on 08-11-2024 Lymphocytes (Bld) [#/Vol] Lymphocytes [#/volume] in Blood by Automated count 1.00-4.8 [facility] Lymphocytes/100 WBC Auto (Bl d)Ordered By: Obie Hylton on 08-11-2024 Lymphocytes/100 WBC (Bld) Lymphocytes/100 leukocytes in Blood by Automated count . [facility] MCH Auto (RBC) [Entitic mass ]Ordered By: Obie Hylton on 08-11-2024 MCH (RBC) [Entitic mass] MCH [Entitic mass] by Automated count 24.7-34.3 [facility] MCHC Auto (RBC) [Mass/Vol]Or dered By: Obie Hylton on 08-11-2024 MCHC (RBC) [Mass/Vol] MCHC [Mass/volume] by Automated count 32.0-35.0 [facility] MCV Auto (RBC) [Entitic vol] Ordered By: Obie Hylton on 08-11-2024 MCV (RBC) [Entitic vol] MCV [Entitic volume] by Automated count 80-100 [facility] Monocytes Auto (Bld) [#/Vol] Ordered By: Obie Hylton on 08-11-2024 Monocytes (Bld) [#/Vol] Automated blood monocyte count 0.0-0.8 [facility] Monocytes/100 WBC Auto (Bld) Ordered By: Obie Hylton on 08-11-2024 Monocytes/100 WBC (Bld) Automated monocyte % . [facility] Mucus [Presence] in Urine by AutomatedOrdered By: Obie Hylton on 08-11-2024 Mucus Auto Ql (U) Mucus [Presence] in Urine by Automated [facility] Neutrophils Auto (Bld) [#/Vo l]Ordered By: Obie Hylton on 08-11-2024 Neutrophils (Bld) [#/Vol] Neutrophils [#/volume] in Blood by Automated count 1.8-7.7 [facility] Neutrophils/100 WBC Auto (Bl d)Ordered By: Obie Hylton on 08-11-2024 Neutrophils/100 WBC (Bld) Automated neutrophil % . [facility] Nitrite Test strip Ql (U)Ord ered By: Obie Hylton on 08-11-2024 Nitrite Ql (U) Nitrite [Presence] i n Urine by Test strip Negative [facility] No Panel InformationOrdered By: Obie Hylton on 08-11-2024 Estimated GFR (CKD-EPI) 41.829 mL/Min [facility] Creatinine Clearance (Chem N/A [facility] Nucleated erythrocytes [Pres ence] in Blood by Automated countOrdered By: Obie Hylton on 08-11-2024 Nucleated RBC Auto Ql (Bld) Nucleated erythrocytes [Presence] in Blood by Automated count 0-0.5 [facility] Platelet mean volume Auto (B ld) [Entitic vol]Ordered By: Obie Hylton on 08-11-2024 Platelet mean volume (Bld) [Entitic vol] Platelet mean volume [Entitic volume] in Blood by Automated count 6.3-10.7 [facility] Platelets Auto (Bld) [#/Vol] Ordered By: Obie Hylton on 08-11-2024 Platelets (Bld) [#/Vol] Platelets [#/volume] in Blood by Automated count 150-450 [facility] Potassium [Moles/volume] in Serum or PlasmaOrdered By: Obie Hylton on 08-11-2024 Potassium [Moles/Vol] Potassium [Moles/v olume] in Serum or Plasma 3.5-5.1 [facility] Protein Test strip (U) [Mass /Vol]Ordered By: Obie Hylton on 08-11-2024 Protein (U) [Mass/Vol] Protein [Mass/volume] in Urine by Test strip Negative [facility] Protein [Mass/volume] in Ser um or PlasmaOrdered By: Obie Hylton on 08-11-2024 Protein [Mass/Vol] Protein [Mass/volume ] in Serum or Plasma Low 6.4-8.9 [facility] RBC Auto (Bld) [#/Vol]Ordere d By: Obie Hylton on 08-11-2024 RBC (Bld) [#/Vol] Erythrocytes [#/volu me] in Blood by Automated count 3.60-5.00 [facility] Serum or plasma albumin/glob ulin mass ratioOrdered By: Obie Hylton on 08-11-2024 Albumin/Globulin [Mass ratio] Serum or plasma albumin/globulin mass ratio [facility] Serum or plasma anion gap de terminationOrdered By: Obie Hylton on 08-11-2024 Anion gap [Moles/Vol] Serum or plasma an ion gap determination 6.0-15.0 [facility] Serum or plasma complement C 3 measurement (mass/volume)Ordered By: Obie Hylton on 08-11-2024 Complement C3 [Mass/Vol] Serum or plasma complement C3 measurement (mass/volume) 82-167 [facility] Serum or plasma complement C 4 measurement (mass/volume)Ordered By: Obie Hylton on 08-11-2024 Complement C4 [Mass/Vol] Serum or plasma complement C4 measurement (mass/volume) 12-38 [facility] Comment on above: Performed at: [facility] [place] [id number] Director: Usman Draper PhD, Phone: [phone] Sodium [Moles/volume] in Ser um or PlasmaOrdered By: Obie Hylton on 08-11-2024 Sodium [Moles/Vol] Sodium [Moles/volume ] in Serum or Plasma 136-145 [facility] Specific gravity Test strip (U) [Rel density]Ordered By: Obie Hylton on 08-11-2024 Specific gravity (U) [Rel density] Specific gravity of Urine by Test strip 1.001-1.03 0 [facility] Total hemolytic complement C H50 assayOrdered By: Obie Hylton on 08-11-2024 Total Complement (CH50) 54 U/mL >41 [facility] Comment on above: Age Male Female [...] to determine out of range values.Performed at: [facility] [address] [id number] Director: Usman Draper PhD, Phone: [phone] Urea nitrogen [Mass/volume] in Serum or PlasmaOrdered By: Obie Hylton on 08-11-2024 Urea nitrogen [Mass/Vol] Urea nitrogen [Mass/volume] in Serum or Plasma High 7-25 [facility] Urobilinogen Test strip (U) [Mass/Vol]Ordered By: Obie Hylton on 08-11-2024 Urobilinogen (U) [Mass/Vol] Urobilinogen [Mass/volume] in Urine by Test strip High Normal [facility] WBC Auto (Bld) [#/Vol]Ordere d By: Obie Hylton on 08-11-2024 WBC (Bld) [#/Vol] Leukocytes [#/volume ] in Blood by Automated count 3.8-11.6 [facility] pH Test strip (U)Ordered By: Obie Hylton on 08-11-2024 pH (U) pH of Urine by Test strip 5.0-9.0 [facility] XR Ankle - right 3 Viewson 0 07-10-2024 1. No acute bone abnormality or significant degenerative joint disease. [facility] Bello Henry MD - 07/10/2024 PROCEDURE: [...] bone abnormality or significant degenerative joint disease. [facility] Radiology Study observation (narrative) [facility] XR Ankle - right 3 ViewsOrde red By: Bello Leal on 07-10-2024 [facility] COVID-19, Rapidon 06-24-2024 Interpretation and review of laboratory results Abnormal [facility] SARS-CoV-2 (COVID-19) RdRp gene JUAQUIN+probe Ql (Resp) Detected Abnormal Not Detected [facility] Comment on above: Rapid NAAT: The specimen [...] appropriate Health Department Specimen Description .NASOPHARYNGEAL SWAB [facility] Flu A/B Ag Detectionon 06-24 Flu A Ag Detection Negative Normal NEG [facility] Comment on above: Result Comment: for Influenza A Antigen Performed By: #### F LUABA #### [facility] [address] [place], [place] [id number] Bed Laborer: Christian Muir MD Flu B Ag Detection Negative Normal [facility] Comment on above: Result Comment: for Influenza B Antigen. Performed By: #### F LUABA #### [facility] [address] [place] [address] Bed Laborer: Christian Muir MD Rapid Strep Screenon 024 Specimen source Nom (Unsp spec) .THROAT SWAB [facility] Strep A, Molecular Negative NEGATIVE [facility] Rapid influenza A/B antigens on 06-24-2024 FLUAV Ag Ql (Unsp spec) Negative NEGATIVE [facility] Comment on above: for Influenza A Anti gen FLUBV Ag Ql (Unsp spec) Negative NEGATIVE [facility] Comment on above: for Influenza B Anti gen. [facility] [id number] 06-24-2024 SARS-CoV-2 (COVID-19) RNA JUAQUIN+probe Ql (Unsp spec) Detected Abnormal NOTDET [facility] Comment on above: Result Comment: [...] Department Performed By: #### C OVRB #### [facility] [address] [place] [address] Bed Laborer: Christian Muir MD Strep Group A, Rapidon 06-24 Strep A, Molecular Negative Normal NEG [facility] Comment on above: Performed By: #### C OVRB #### [facility] [address] [place] [address] Bed Laborer: Christian Muir MD Source .THROAT SWAB Normal [facility] Comment on above: Performed By: #### C OVRB #### [facility] [address] [place] [address] Bed Laborer: Christian Muir MD [facility] WU DIGITAL SCREEN BILA TERALon 05-12-2024 ANA WU DIGITAL SCREEN BILATERAL HISTORY: [...] the patient regarding the results. Performing Facility: [facility] [address] [place] [id number] Interpreted by: Ishmael Valentin Jr., MD Signed by: Ishmael Valentin Jr., MD 05/12/24 Final result Normal [facility] Alanine aminotransferase [En zymatic activity/volume] in Serum or PlasmaOrdered By: Obie Hylton on 12-19-2023 ALT [Catalytic activity/Vol] 10 U/L [facility] Albumin [Mass/volume] in Ser um or Plasma by Bromocresol green (BCG) dye binding methoOrdered By: Obie Hylton on 12-19-2023 Albumin BCG dye [Mass/Vol] 3.9 g/dL 3.5-5.7 [facility] Alkaline phosphatase [Enzyma tic activity/volume] in Serum or PlasmaOrdered By: Obie Hylton on 12-19-2023 ALP [Catalytic activity/Vol] 56 U/L 34-104 [facility] Aspartate aminotransferase [ Enzymatic activity/volume] in Serum or PlasmaOrdered By: Obie Hylton on 12-19-2023 AST [Catalytic activity/Vol] 13 U/L 13-39 [facility] Bacteria [Presence] in Urine sediment by Light microscopyOrdered By: Obie Hylton on 12-19-2023 Bacteria LM Ql (Urine sed) Rare [HPF] High None Seen [facility] Basophils Auto (Bld) [#/Vol] Ordered By: Obie Hylton on 12-19-2023 Basophils (Bld) [#/Vol] 0.0 10*3/uL 0.0-0.2 [facility] Basophils/100 WBC Auto (Bld) Ordered By: Obie Hylton on 12-19-2023 Basophils/100 WBC (Bld) 0.3 % . [facility] Bilirubin Test strip Ql (U)O rdered By: Obie Hylton on 12-19-2023 Bilirubin Ql (U) Negative Negative [facility] Bilirubin.total [Mass/volume ] in Serum or PlasmaOrdered By: Obie Hylton on 12-19-2023 Bilirubin [Mass/Vol] 0.4 mg/dL 0.3-1.0 [facility] Calcium [Mass/volume] in Ser um or PlasmaOrdered By: Obie Hylton on 12-19-2023 Calcium [Mass/Vol] 9.1 mg/dL 8.6-10.3 [facility] [place] [facility] Carbon dioxide, total [Moles /volume] in Serum or PlasmaOrdered By: Obie Hylton on 12-19-2023 CO2 [Moles/Vol] 27.0 mmol/L 21.0-31.0 [facility] Chloride [Moles/volume] in S liat or PlasmaOrdered By: Obie Hylton on 06-20-2024 Chloride [Moles/Vol] 107 mmol/L 98-107 [facility] Color Auto (U)Ordered By: Cindy scott Warner on 12-19-2023 Color (U) Light-yellow Yellow [facility] Creatinine [Mass/volume] in Serum or PlasmaOrdered By: Obie Hylton on 12-19-2023 Creatinine [Mass/Vol] 1.16 mg/dL 0.60-1.20 [facility] Eosinophils Auto (Bld) [#/Vo l]Ordered By: Obie Hylton on 12-19-2023 Eosinophils (Bld) [#/Vol] 0.1 10*3/uL 0.0-0.45 [facility] Eosinophils/100 WBC Auto (Bl d)Ordered By: Obie Hylton on 12-19-2023 Eosinophils/100 WBC (Bld) 2.5 % . [facility] Epithelial cells.squamous [# /area] in Urine sediment by Microscopy high power fieldOrdered By: Obie Hylton on 12-19-2023 Epithelial cells.squamous LM.HPF (Urine sed) [#/Area] 0-1 [HPF] 0-2 [facility] Erythrocyte distribution wid th Auto (RBC) [Ratio]Ordered By: Obie Hylton on 12-19-2023 Erythrocyte distribution width (RBC) [Ratio] 15.0 % 11.9-15.3 [facility] Erythrocyte sedimentation ra te by Photometric methodOrdered By: Obie Hylton on 12-19-2023 ESR Photometric method (Bld) [Velocity] 12 mm/hr 0-29 [facility] Erythrocytes [#/area] in Uri ne sediment by Microscopy high power fieldOrdered By: Obie Hylton on 12-19-2023 RBC LM.HPF (Urine sed) [#/Area] None seen [HPF] 0-4 [facility] Globulin Calc (S) [Mass/Vol] Ordered By: Obie Hylton on 12-19-2023 Globulin (S) [Mass/Vol] 2.0 g/dL [facility] Glucose [Mass/volume] in Ser um or PlasmaOrdered By: Obie Hylton on 12-19-2023 Glucose [Mass/Vol] 92 mg/dL 70-100 [facility] [place] [facility] Comment on above: ADA recommended refe rence rangeRandom Glucose Reference Range is dependent on time and content of last meal. Glucose of more than 200 mg/dL in a nonstressed, ambulatory subject supports the diagnosis of Diabetes Mellitus. Glucose [Mass/volume] in Uri ne by Test stripOrdered By: Obie Hylton on 12-19-2023 Glucose Test strip (U) [Mass/Vol] Normal mg/dL Normal [facility] Hematocrit Auto (Bld) [Volum e fraction]Ordered By: Obie Hylton on 12-19-2023 Hematocrit (Bld) [Volume fraction] 33.2 % Low 34.0-46.4 [facility] Hemoglobin Test strip Ql (U) Ordered By: Obie Hylton on 12-19-2023 Hemoglobin Ql (U) Negative Negative [facility] Hemoglobin [Mass/volume] in BloodOrdered By: Obie Hylton on 12-19-2023 Hemoglobin (Bld) [Mass/Vol] 11.2 g/dL Low 11.8-15.4 [facility] Ketones Test strip Ql (U)Ord ered By: Obie Hylton on 12-19-2023 Ketones Ql (U) Negative Negative [facility] Leukocyte esterase [Presence ] in Urine by Test stripOrdered By: Obie Hylton on 12-19-2023 Leukocyte esterase Test strip Ql (U) Negative Negative [facility] Leukocytes [#/area] in Urine sediment by Microscopy high power fieldOrdered By: Obie Hylton on 12-19-2023 WBC LM.HPF (Urine sed) [#/Area] None seen [HPF] 0-4 [facility] Leukocytes [#/volume] correc pepito for nucleated erythrocytes in Blood by Automated counOrdered By: Obie Hylton on 12-19-2023 WBC corrected for nucl RBC Auto (Bld) [#/Vol] 5.9 10*3/uL 3.8-11.6 [facility] Lymphocytes Auto (Bld) [#/Vo l]Ordered By: Obie Hylton on 12-19-2023 Lymphocytes (Bld) [#/Vol] 1.1 10*3/uL 1.00-4.8 [facility] Lymphocytes/100 WBC Auto (Bl d)Ordered By: Obie Hylton on 12-19-2023 Lymphocytes/100 WBC (Bld) 17.9 % . [facility] MCH Auto (RBC) [Entitic mass ]Ordered By: Obie Hylton on 12-19-2023 MCH (RBC) [Entitic mass] 31.5 pg 24.7-34.3 [facility] MCHC Auto (RBC) [Mass/Vol]Or dered By: Obie Hylton on 12-19-2023 MCHC (RBC) [Mass/Vol] 33.8 g/dL 32.0-35.0 [facility] MCV Auto (RBC) [Entitic vol] Ordered By: Oibe Hylton on 12-19-2023 MCV (RBC) [Entitic vol] 93.2 fL 80-100 [facility] Monocytes Auto (Bld) [#/Vol] Ordered By: Obie Hylton on 12-19-2023 Monocytes (Bld) [#/Vol] 0.5 10*3/uL 0.0-0.8 [facility] Monocytes/100 WBC Auto (Bld) Ordered By: Obie Hylton on 12-19-2023 Monocytes/100 WBC (Bld) 9.2 % . [facility] Neutrophils Auto (Bld) [#/Vo l]Ordered By: Obie Hylton on 12-19-2023 Neutrophils (Bld) [#/Vol] 4.1 10*3/uL 1.8-7.7 [facility] Neutrophils/100 WBC Auto (Bl d)Ordered By: Obie Hylton on 12-19-2023 Neutrophils/100 WBC (Bld) 70.1 % . [facility] Nitrite Test strip Ql (U)Ord ered By: Obie Hylton on 12-19-2023 Nitrite Ql (U) Negative Negative [facility] No Panel InformationOrdered By: Obie Hylton on 12-19-2023 Estimated GFR (CKD-EPI) 47.958 mL/Min [facility] Creatinine Clearance (Chem N/A [facility] Total Complement (CH50) 57 U/mL >41 [facility] Comment on above: Age Male Female [...] to determine out of range values.Performed at: - [facility] [id number] Director: Usman Draper PhD, Phone: [phone] Nucleated erythrocytes [Pres ence] in Blood by Automated countOrdered By: Obie Hylton on 12-19-2023 Nucleated RBC Auto Ql (Bld) 0.2 /100{WBC} 0-0.5 [facility] Platelet mean volume Auto (B ld) [Entitic vol]Ordered By: Obie Hylton on 12-19-2023 Platelet mean volume (Bld) [Entitic vol] 8.7 fL 6.3-10.7 [facility] Platelets Auto (Bld) [#/Vol] Ordered By: Obie Hylton on 12-19-2023 Platelets (Bld) [#/Vol] 201 10*3/uL 150-450 [facility] Potassium [Moles/volume] in Serum or PlasmaOrdered By: Obie Hylton on 12-19-2023 Potassium [Moles/Vol] 4.3 mmol/L 3.5-5.1 [facility] Protein Test strip (U) [Mass /Vol]Ordered By: Obie Hylton on 12-19-2023 Protein (U) [Mass/Vol] Negative Negative [facility] Protein [Mass/volume] in Ser um or PlasmaOrdered By: Obie Hylton on 12-19-2023 Protein [Mass/Vol] 5.9 g/dL Low 6.4-8.9 [facility] [place] [facility] RBC Auto (Bld) [#/Vol]Ordere d By: Obie Hylton on 12-19-2023 RBC (Bld) [#/Vol] 3.56 10*6/uL Low 3.60-5.00 [facility] Serum or plasma albumin/glob ulin mass ratioOrdered By: Obie Hylton on 12-19-2023 Albumin/Globulin [Mass ratio] 2.0 {ratio} [facility] Serum or plasma anion gap de terminationOrdered By: Obie Hylton on 12-19-2023 Anion gap [Moles/Vol] 9.3 mmol/L 6.0-15.0 [facility] Serum or plasma complement C 3 measurement (mass/volume)Ordered By: Obie Hylton on 12-19-2023 Complement C3 [Mass/Vol] 120 mg/dL 82-167 [facility] Comment on above: Performed at: [facility] [address] [id number] Director: Usman Draper PhD, Phone: [phone] Serum or plasma complement C 4 measurement (mass/volume)Ordered By: Obie Hylton on 12-19-2023 Complement C4 [Mass/Vol] 22 mg/dL 12-38 [facility] Sodium [Moles/volume] in Ser um or PlasmaOrdered By: Obie Hylton on 12-19-2023 Sodium [Moles/Vol] 139 mmol/L 136-145 [facility] [place] [facility] Specific gravity Test strip (U) [Rel density]Ordered By: Obie Hylton on 12-19-2023 Specific gravity (U) [Rel density] 1.020 1.001-1.03 0 [facility] Urea nitrogen [Mass/volume] in Serum or PlasmaOrdered By: Obie Hylton on 12-19-2023 Urea nitrogen [Mass/Vol] 33 mg/dL High 7-25 [facility] Urine appearanceOrdered By: Obie Hylton on 12-19-2023 Appearance (U) Clear Clear [facility] Urobilinogen Test strip (U) [Mass/Vol]Ordered By: Obie Hylton on 12-19-2023 Urobilinogen (U) [Mass/Vol] Normal mg/dL Normal [facility] WBC Auto (Bld) [#/Vol]Ordere d By: Obie Hylton on 12-19-2023 WBC (Bld) [#/Vol] 5.9 10*3/uL 3.8-11.6 [facility] [place] [facility] pH Test strip (U)Ordered By: Obie Hylton on 12-19-2023 pH (U) 5.5 [pH] 5.0-9.0 [facility] Basic Metabolic Profon 12-11 Anion gap [Moles/Vol] 11 mmol/L Normal 9-17 [facility] Comment on above: Performed By: #### B MP #### [facility] [address] [place], [place] [id number] Bed Laborer: Christian Muir MD BUN/CRE Ratio 19 Normal 9-20 [facility] Comment on above: Performed By: #### B MP #### [facility] [address] [place], [place] [id number] Bed Laborer: Christian Muir MD Calcium [Mass/Vol] 9.1 mg/dL Normal 8.6-10.4 [facility] Comment on above: Performed By: #### B MP #### [facility] [address] [place], [place] [id number] Bed Laborer: Christian Muir MD Chloride [Moles/Vol] 104 mmol/L Normal 98-[address] [facility] Comment on above: Performed By: #### B MP #### [facility] [address] [place], [place] [id number] Bed Laborer: Christian Muir MD CO2 [Moles/Vol] 22 mmol/L Normal 20-31 [facility] Comment on above: Performed By: #### B MP #### [facility] [address] [place], [place] [id number] Bed Laborer: Christian Muir MD Creatinine [Mass/Vol] 1.3 mg/dL High 0.5-0.9 [facility] Comment on above: Performed By: #### B MP #### [facility] [address] [place], [place] [id number] Bed Laborer: Christian Muir MD GFR/1.73 sq M.predicted among non-blacks MDRD (S/P/Bld) [Vol rate/Area] 42 mL/min/{1.73_m2} Low >60 [facility] Comment on above: Result Comment: These [...] secretion. Performed By: #### B MP #### [facility] [address] [place] [address] Bed Laborer: Christian Muir MD Glucose [Mass/Vol] 88 mg/dL Normal 70-99 [facility] Comment on above: Performed By: #### B MP #### [facility] [address] [place] [address] Bed Laborer: Christian Muir MD Potassium [Moles/Vol] 4.3 mmol/L Normal 3.7-5.3 [facility] Comment on above: Performed By: #### B MP #### [facility] [address] [place] [address] Bed Laborer: Christian Muir MD Sodium [Moles/Vol] 137 mmol/L Normal 135-144 [facility] Comment on above: Performed By: #### B MP #### [facility] [address] [place] [address] Bed Laborer: Christian Muir MD Urea nitrogen [Mass/Vol] 25 mg/dL High 8-23 [facility] Comment on above: Performed By: #### B MP #### [facility] [address] [place] [address] Bed Laborer: Christian Muir MD Basic Metabolic Panelon 05-1 Anion gap [Moles/Vol] 13 mmol/L 9 - 17 mmol/L [facility] Calcium [Mass/Vol] 9.1 mg/dL 8.6 - 10. 4 mg/dL [facility] Chloride [Moles/Vol] 104 mmol/L 98 - 10 7 mmol/L [facility] CO2 [Moles/Vol] 20 mmol/L 20 - 31 mmol/L [facility] Creatinine [Mass/Vol] 1.1 mg/dL High 0.5 - 0.9 mg/dL [facility] EstBill Filt Rate 51 Low - [facility] Comment on above: These results are not [...] 153 mg/dL High 70 - 99 mg/dL [facility] Interpretation and review of laboratory results Abnormal [facility] Potassium [Moles/Vol] 3.3 mmol/L Low 3.7 - 5.3 mmol/L [facility] Sodium [Moles/Vol] 137 mmol/L 135 - 144 mmol/L [facility] Urea nitrogen [Mass/Vol] 26 mg/dL High 8 - 23 mg/dL [facility] Urea nitrogen/Creatinine [Mass ratio] 24 mg/mg High - [facility] Basic Metabolic Profon 11-13 Anion gap [Moles/Vol] 13 mmol/L Normal - [facility] Comment on above: Performed By: #### T SH, CBC, TROPI, BMP #### [facility] [address] [place] [address] Bed Laborer: Christian Muir MD BUN/CRE Ratio 24 High - [facility] Comment on above: Performed By: #### T SH, CBC, TROPI, BMP #### [facility] [address] [place] [address] Bed Laborer: Christian Muir MD Calcium [Mass/Vol] 9.1 mg/dL Normal 8.6-10.4 [facility] Comment on above: Performed By: #### T DAVE CBC, TROPI, BMP #### [facility] [address] [place] [address] Bed Laborer: Christian Muir MD Chloride [Moles/Vol] 104 mmol/L Normal 98-[address] [facility] Comment on above: Performed By: #### T DAVE, CBC, TROPI, BMP #### [facility] [address] [place] [address] Bed Laborer: Christian Muir MD CO2 [Moles/Vol] 20 mmol/L Normal 20-31 [facility] Comment on above: Performed By: #### T MICKEY ACOSTA, TROPI, BMP #### [facility] [address] [place] [address] Bed Laborer: Christian Muir MD Creatinine [Mass/Vol] 1.1 mg/dL High 0.5-0.9 [facility] Comment on above: Performed By: #### T MICKEY ACOSTA, TROPI, BMP #### [facility] [address] [place] [address] Bed Laborer: Christian Muir MD GFR/1.73 sq M.predicted among non-blacks MDRD (S/P/Bld) [Vol rate/Area] 51 mL/min/{1.73_m2} Low >60 [facility] Comment on above: Result Comment: These [...] renal tubular secretion. Performed By: #### T DAVE, CBC, TROPI, BMP #### [facility] [address] [place], [place] [id number] Bed Laborer: Christain Muir MD Glucose [Mass/Vol] 153 mg/dL High 70-99 [facility] Comment on above: Performed By: #### T DAVE, CBC, TROPI, BMP #### [facility] [address] [place], [place] [id number] Bed Laborer: Christian Muir MD Potassium [Moles/Vol] 3.3 mmol/L Low 3.7-5.3 [facility] Comment on above: Performed By: #### T DAVE, CBC, TROPI, BMP #### [facility] [address] [place], [place] [id number] Bed Laborer: Christian Muir MD Sodium [Moles/Vol] 137 mmol/L Normal 135-144 [facility] Comment on above: Performed By: #### T DAVE, CBC, TROPI, BMP #### [facility] [address] [place], [place] [id number] Bed Laborer: Christian Muir MD Urea nitrogen [Mass/Vol] 26 mg/dL High 8-23 [facility] Comment on above: Performed By: #### T DAVE, CBC, TROPI, BMP #### [facility] [address] [place], [place] [id number] Bed Laborer: Christian Muir MD [facility] 11-14-2023 Erythrocyte distribution width (RBC) [Ratio] 14.7 % 12.1 - 15.2 % [facility] Hematocrit (Bld) [Volume fraction] 37.0 % 36.0 - 46.0 % [facility] Hemoglobin (Bld) [Mass/Vol] 12.2 g/dL 12.0 - 16.0 g/dL [facility] Interpretation and review of laboratory results Abnormal [facility] MCH (RBC) [Entitic mass] 31.1 pg 26.0 - 34.0 pg [facility] MCHC (RBC) [Mass/Vol] 33.0 g/dL 31.0 - 37.0 g/dL [facility] MCV (RBC) [Entitic vol] 94.4 fL 80.0 - 100.0 fL [facility] Platelet mean volume (Bld) [Entitic vol] 10.3 fL 6.0 - 12.0 fL [facility] Platelets (Bld) [#/Vol] 179 10*3/uL [facility] RBC (Bld) [#/Vol] 3.92 10*6/uL Low 4.00 - 5.20 m/uL [facility] WBC other (Bld) [#/Vol] 4.3 [facility] Erythrocyte distribution width (RBC) [Ratio] 14.7 % Normal 12.1-15.2 [facility] Comment on above: Performed By: #### T SH, CBC, TROPI, BMP #### [facility] [address] [place] [address] Bed Laborer: Christian Muir MD Hematocrit (Bld) [Volume fraction] 37.0 % Normal 36.0-46.0 [facility] Comment on above: Performed By: #### T DAVE, CBC, TROPI, BMP #### [facility] [address] [place] [address] Bed Laborer: Christian Muir MD Hemoglobin (Bld) [Mass/Vol] 12.2 g/dL Normal 12.0-16.0 [facility] Comment on above: Performed By: #### T SH, CBC, TROPI, BMP #### [facility] [address] [place] [address] Bed Laborer: Christian Muir MD MCH (RBC) [Entitic mass] 31.1 pg Normal 26.0-34.0 [facility] Comment on above: Performed By: #### T SH, CBC, TROPI, BMP #### [facility] [address] [place] [address] Bed Laborer: Christian Muir MD MCHC (RBC) [Mass/Vol] 33.0 g/dL Normal 31.0-37.0 [facility] Comment on above: Performed By: #### T SH, CBC, TROPI, BMP #### [facility] [address] [place], [place] [phone] Bed Laborer: Christian Muir MD MCV (RBC) [Entitic vol] 94.4 fL Normal 80.0-100.0 [facility] Comment on above: Performed By: #### T SH, CBC, TROPI, BMP #### [facility] [address] [place] [phone] Bed Laborer: Christian Muir MD Platelet mean volume (Bld) [Entitic vol] 10.3 fL Normal 6.0-12.0 [facility] Comment on above: Performed By: #### T SH, CBC, TROPI, BMP #### [facility] [address] [place] [address] Bed Laborer: Christian Muir MD Platelets (Bld) [#/Vol] 179 10*3/uL Normal 140-450 [facility] Comment on above: Performed By: #### T SH, CBC, TROPI, BMP #### [facility] [address] [place] [address] [phone] Bed Laborer: Christian Muir MD RBC (Bld) [#/Vol] 3.92 10*6/uL Low 4.00-5.20 [facility] Comment on above: Performed By: #### T SH, CBC, TROPI, BMP #### [facility] [address] [place] [phone] Bed Laborer: Christian Muir MD WBC (Bld) [#/Vol] 4.3 10*3/uL Normal 3.5-11.0 [facility] Comment on above: Performed By: #### T SH, CBC, TROPI, BMP #### [facility] [address] [place] [address] Bed Laborer: Christian Muir MD No Panel Informationon 11-13 [facility] TSHon 11-14-2023 TSH Qn 1.80 m[IU]/L [facility] Thyroid Stim. Horm.on 2023 Thyroid Stim. Horm. 1.80 uIU/mL Normal 0.30-5.[address] [facility] Comment on above: Performed By: #### T SH, CBC, TROPI, BMP #### [facility] [address] [place] [address] Bed Laborer: Christian Muir MD Troponinon 11-14-2023 Troponin I.cardiac High sensitivity method [Mass/Vol] 10 ng/L 0 - 14 ng/L [facility] Comment on above: High Sensitivity Tro ponin values cannot be compared with other Troponin methodologies. Troponin, High Sens 10 ng/L Normal 0-14 [facility] Comment on above: Result Comment: High Sensitivity Troponin values cannot be compared with other Troponin methodologies. Performed By: #### T SH, CBC, TROPI, BMP #### [facility] [address] [place] [address] Bed Laborer: Christian Muir MD CBC with Auto Differentialon 10-23-2023 Absolute Bands 0.18 [facility] Bands 4 % 0 - 10 % [facility] Basophils (Bld) [#/Vol] [facility] Basophils/100 WBC (Bld) 0 - 2 % [facility] Eosinophils % 0 - 5 % [facility] Eosinophils (Bld) [#/Vol] [facility] Erythrocyte distribution width (RBC) [Ratio] 14.7 % 12.1 - 15.2 % [facility] Hematocrit (Bld) [Volume fraction] 39.4 % 36.0 - 46.0 % [facility] Hemoglobin (Bld) [Mass/Vol] 12.9 g/dL 12.0 - 16.0 g/dL [facility] Immature granulocytes (Bld) [#/Vol] [facility] Immature granulocytes/100 WBC (Bld) 0 % [facility] Interpretation and review of laboratory results Abnormal [facility] Lymphocytes/100 WBC (Bld) 5 % Low 15 - 40 % [facility] Lymphocytes/100 WBC (Bld) 0.23 % Low [facility] MCH (RBC) [Entitic mass] 30.6 pg 26.0 - 34.0 pg [facility] MCHC (RBC) [Mass/Vol] 32.7 g/dL 31.0 - 37.0 g/dL [facility] MCV (RBC) [Entitic vol] 93.4 fL 80.0 - 100.0 fL [facility] Monocytes/100 WBC (Bld) 6 % 4 - 8 % [facility] Monocytes/100 WBC (Bld) 0.27 % [facility] Morphology Igor (Bld) [Interp] Platelet morphology normal. [facility] Morphology Igor (Bld) [Interp] RBC morphology normal. [facility] Morphology Igor (Bld) [Interp] Manual Differential Performed [facility] Neutrophils/100 WBC (Bld) 85 % High 47 - 75 % [facility] Platelet mean volume (Bld) [Entitic vol] 9.4 fL 6.0 - 12.0 fL [facility] Platelets (Bld) [#/Vol] 152 10*3/uL [facility] RBC (Bld) [#/Vol] 4.22 10*6/uL 4.00 - 5.20 m/uL [facility] Segmented neutrophils/100 WBC (Bld) 3.82 % [facility] WBC other (Bld) [#/Vol] 4.5 [facility] CBC with Diffon 10-23-2023 Abs. Bands 0.18 k/uL Normal 0.0-1.0 [facility] Comment on above: Performed By: #### C OVRB #### [facility] [address] [place] [address] Bed Laborer: Christian Muir MD Abs. Basophil Normal 0.0-0.2 [facility] Comment on above: Performed By: #### C OVRB #### [facility] [address] [place], [place] [phone] Bed Laborer: Christian Muir MD Abs. Eosinophil Normal 0.0-0.4 [facility] Comment on above: Performed By: #### C OVRB #### [facility] [address] [place], [place] [id number] Bed Laborer: Christian Muir MD Abs.Imm.Granulocyte Normal 0.00-0.30 [facility] Comment on above: Performed By: #### C OVRB #### [facility] [address] [place], [place] [phone] Bed Laborer: Christian Muir MD Abs.Neutrophil (Seg) 3.82 k/uL Normal 2.5-7.[address] [facility] Comment on above: Performed By: #### C OVRB #### [facility] [address] [place] [address] Bed Laborer: Christian Muir MD Bands 4 % Normal 0-10 [facility] Comment on above: Performed By: #### C OVRB #### [facility] [address] [place], [place] [phone] Bed Laborer: Christian Muir MD Basophil Normal 0-2 [facility] Comment on above: Performed By: #### C OVRB #### [facility] [address] [place], [place] [phone] Bed Laborer: Christian Muir MD Eosinophil Normal 0-5 [facility] Comment on above: Performed By: #### C OVRB #### [facility] [address] [place], [place] [phone] Bed Laborer: Christian Muir MD Immature Granulocyte Normal [address] [facility] Comment on above: Performed By: #### C OVRB #### [facility] [address] [place], [place] [id number] Bed Laborer: Christian Muir MD Lymphocytes (Bld) [#/Vol] 0.23 10*3/uL Low 1.0-4.8 [facility] Comment on above: Performed By: #### C OVRB #### [facility] [address] [place], [place] [phone] Bed Laborer: Christian Muir MD Lymphocytes/100 WBC (Bld) 5 % Low 15-40 [facility] Comment on above: Performed By: #### C OVRB #### [facility] [address] [place] [address] Bed Laborer: Christian Muir MD Monocytes (Bld) [#/Vol] 0.27 10*3/uL Normal 0.0-1.0 [facility] Comment on above: Performed By: #### C OVRB #### [facility] [address] [place] [address] Bed Laborer: Christian Muir MD Monocytes/100 WBC (Bld) 6 % Normal 4-8 [facility] Comment on above: Performed By: #### C OVRB #### [facility] [address] [place] [address] Bed Laborer: Christian Muir MD Morphology Igor (Bld) [Interp] Platelet morphology normal. Normal [facility] Comment on above: Result Comment: RBC morphology normal. Manual Differential Performed Performed By: #### C OVRB #### [facility] [address] [place] [address] Bed Laborer: Christian Muir MD Neutrophil (Seg) 85 % High 47-75 [facility] Comment on above: Performed By: #### C OVRB #### [facility] [address] [place] [address] Bed Laborer: Christian Muir MD Erythrocyte distribution width (RBC) [Ratio] 14.7 % Normal 12.1-15.2 [facility] Comment on above: Performed By: #### C OVRB #### [facility] [address] [place] [address] Bed Laborer: Christian Muir MD Hematocrit (Bld) [Volume fraction] 39.4 % Normal 36.0-46.0 [facility] Comment on above: Performed By: #### C OVRB #### [facility] [address] [place] [address] Bed Laborer: Christian Muir MD Hemoglobin (Bld) [Mass/Vol] 12.9 g/dL Normal 12.0-16.0 [facility] Comment on above: Performed By: #### C OVRB #### [facility] [address] [place] [address] Bed Laborer: Christian Muir MD MCH (RBC) [Entitic mass] 30.6 pg Normal 26.0-34.0 [facility] Comment on above: Performed By: #### C OVRB #### [facility] [address] [place] [address] Bed Laborer: Christian Muir MD MCHC (RBC) [Mass/Vol] 32.7 g/dL Normal 31.0-37.0 [facility] Comment on above: Performed By: #### C OVRB #### [facility] [address] [place] [address] Bed Laborer: Christian Muir MD MCV (RBC) [Entitic vol] 93.4 fL Normal 80.0-100.0 [facility] Comment on above: Performed By: #### C OVRB #### [facility] [address] [place] [address] Bed Laborer: Christian Muir MD Platelet mean volume (Bld) [Entitic vol] 9.4 fL Normal 6.0-12.0 [facility] Comment on above: Performed By: #### C OVRB #### [facility] [address] [place], [place] [phone] Bed Laborer: Christian Muir MD Platelets (Bld) [#/Vol] 152 10*3/uL Normal 140-450 [facility] Comment on above: Performed By: #### C OVRB #### [facility] [address] [place], [place] [phone] Bed Laborer: Christian Muir MD RBC (Bld) [#/Vol] 4.22 10*6/uL Normal 4.00-5.20 [facility] Comment on above: Performed By: #### C OVRB #### [facility] [address] [place], [place] [phone] Bed Laborer: Christian Muir MD WBC (Bld) [#/Vol] 4.5 10*3/uL Normal 3.5-11.0 [facility] Comment on above: Performed By: #### C OVRB #### [facility] [address] [place] [address] Bed Laborer: Christian Muir MD Comp Metabolic Profon 2023 Albumin [Mass/Vol] 3.9 g/dL Normal 3.5-5.2 [facility] Comment on above: Performed By: #### T CARLOS FRANCO, CP #### [facility] [address] [place], [place] [phone] Bed Laborer: Christian Muir MD Alkaline Phos 49 U/L Normal 35-104 [facility] Comment on above: Performed By: #### T CARLOS FRANCO, CP #### [facility] [address] [place], [place] [phone] Bed Laborer: Christian Muir MD ALT [Catalytic activity/Vol] 12 U/L Normal 5-33 [facility] Comment on above: Performed By: #### T CARLOS FRANCO, CP #### [facility] [address] [place], [place] [phone] Bed Laborer: Christian Muir MD Anion gap [Moles/Vol] 15 mmol/L Normal 9-17 [facility] Comment on above: Performed By: #### T CARLOS FRANCO, CP #### [facility] [address] [place] [address] Bed Laborer: Christian Muir MD AST [Catalytic activity/Vol] 15 U/L Normal <32 [facility] Comment on above: Performed By: #### T CARLOS FRANCO, CP #### [facility] [address] [place], [place] [phone] Bed Laborer: Christian Muir MD Bilirubin [Mass/Vol] 0.4 mg/dL Normal 0.3-1.[address] [facility] Comment on above: Performed By: #### T CARLOS FRANCO, CP #### [facility] [address] [place], [place] [id number] Bed Laborer: Christian Muir MD BUN/CRE Ratio 29 High 9-20 [facility] Comment on above: Performed By: #### T CARLOS FRANCO, CP #### [facility] [address] [place], [place] [phone] Bed Laborer: Christian Muir MD Calcium [Mass/Vol] 8.9 mg/dL Normal 8.6-10.4 [facility] Comment on above: Performed By: #### T CARLOS FRANCO, CP #### [facility] [address] [place], [place] [phone] Bed Laborer: Christian Muir MD Chloride [Moles/Vol] 107 mmol/L Normal 98-[address] [facility] Comment on above: Performed By: #### T CARLOS FRANCO, CP #### [facility] [address] [place] [address] Bed Laborer: Christian Muir MD CO2 [Moles/Vol] 17 mmol/L Low 20-31 [facility] Comment on above: Performed By: #### T CARLOS FRANCO, CP #### [facility] [address] [place] [address] Bed Laborer: Christian Muir MD Creatinine [Mass/Vol] 1.1 mg/dL High 0.5-0.9 [facility] Comment on above: Performed By: #### T CARLOS FRANCO, CP #### [facility] [address] [place] [address] Bed Laborer: Christian Muir MD GFR/1.73 sq M.predicted among non-blacks MDRD (S/P/Bld) [Vol rate/Area] 51 mL/min/{1.73_m2} Low >60 [facility] Comment on above: Result Comment: These [...] renal tubular secretion. Performed By: #### T CARLOS FRANCO, CP #### [facility] [address] [place] [address] Bed Laborer: Christian Muir MD Glucose [Mass/Vol] 136 mg/dL High 70-99 [facility] Comment on above: Performed By: #### T CARLOS FRANCO, CP #### [facility] [address] [place] [address] Bed Laborer: Christian Muir MD Potassium [Moles/Vol] 3.6 mmol/L Low 3.7-5.3 [facility] Comment on above: Performed By: #### T CARLOS FRANCO, CP #### [facility] [address] [place] [address] Bed Laborer: Christian Muir MD Protein [Mass/Vol] 6.6 g/dL Normal 6.4-8.3 [facility] Comment on above: Performed By: #### CARLOS QUEVEDO, CP #### [facility] [address] [place] [address] Bed Laborer: Christian Muir MD Sodium [Moles/Vol] 139 mmol/L Normal 135-144 [facility] Comment on above: Performed By: #### CARLOS QUEVEDO, CP #### [facility] [address] [place] [address] Bed Laborer: Christian Muir MD Urea nitrogen [Mass/Vol] 32 mg/dL High 8-23 [facility] Comment on above: Performed By: #### CARLOS QUEVEDO, CP #### [facility] [address] [place] [address] Bed Laborer: Christian Muir MD Comprehensive Metabolic Pane [facility] 10-23-2023 Albumin [Mass/Vol] 3.9 g/dL 3.5 - 5.2 g/dL [facility] ALP [Catalytic activity/Vol] 49 U/L 35 - 104 U/L [facility] ALT [Catalytic activity/Vol] 12 U/L 5 - 33 U/L [facility] Anion gap [Moles/Vol] 15 mmol/L 9 - 17 mmol/L [facility] AST [Catalytic activity/Vol] 15 U/L NINF - 32 U/L [facility] Bilirubin [Mass/Vol] 0.4 mg/dL 0.3 - 1 .2 mg/dL [facility] Calcium [Mass/Vol] 8.9 mg/dL 8.6 - 10. 4 mg/dL [facility] Chloride [Moles/Vol] 107 mmol/L 98 - 10 7 mmol/L [facility] CO2 [Moles/Vol] 17 mmol/L Low 20 - 31 mmol/L [facility] Creatinine [Mass/Vol] 1.1 mg/dL High 0.5 - 0.9 mg/dL [facility] GFR/1.73 sq M.predicted MDRD (S/P/Bld) [Vol rate/Area] 51 mL/min/{1.73_m2} Low - PINF [facility] Comment on above: These results [...] 136 mg/dL High 70 - 99 mg/dL [facility] Interpretation and review of laboratory results Abnormal [facility] Potassium [Moles/Vol] 3.6 mmol/L Low 3.7 - 5.3 mmol/L [facility] Protein [Mass/Vol] 6.6 g/dL 6.4 - 8.3 g/dL [facility] Sodium [Moles/Vol] 139 mmol/L 135 - 144 mmol/L [facility] Urea nitrogen [Mass/Vol] 32 mg/dL High 8 - 23 mg/dL [facility] Urea nitrogen/Creatinine [Mass ratio] 29 mg/mg High 9 - 20 [facility] Microscopic Urinalysison - [facility] Bacteria LM Ql (Urine sed) RARE Abnormal None [facility] Epithelial cells LM.HPF (Urine sed) [#/Area] 5 TO 10 /HPF [facility] Interpretation and review of laboratory results Abnormal [facility] RBC LM.HPF (Urine sed) [#/Area] 2 TO 5 [facility] WBC LM.HPF (Urine sed) [#/Area] NONE SEEN 0 /HPF [facility] Troponinon 10-23-2023 Interpretation and review of laboratory results Abnormal [facility] Troponin I.cardiac High sensitivity method [Mass/Vol] 19 ng/L High 0 - 14 ng/L [facility] Comment on above: High Sensitivity Tro ponin values cannot be compared with other Troponin methodologies. [facility] Troponin, High Sens 19 ng/L High 0-14 [facility] Comment on above: Result Comment: High Sensitivity Troponin values cannot be compared with other Troponin methodologies. Performed By: #### C OVRB #### [facility] [address] [place] [address] Bed Laborer: Christian Muir MD Interpretation and review of laboratory results Abnormal [facility] Troponin I.cardiac High sensitivity method [Mass/Vol] 15 ng/L High 0 - 14 ng/L [facility] Comment on above: High Sensitivity Tro ponin values cannot be compared with other Troponin methodologies. [facility] Troponin, High Sens 15 ng/L High 0-14 [facility] Comment on above: Result Comment: High Sensitivity Troponin values cannot be compared with other Troponin methodologies. Performed By: #### C OVRB #### [facility] [address] [place], [place] [id number] Bed Laborer: Christian Muir MD UA w/Reflex Cultureon 2023 Bilirubin, SemiQt,Ur Negative Normal NEG [facility] Comment on above: Performed By: #### F LUABA #### [facility] [address] [place], [place] [phone] Bed Laborer: Christian Muir MD Blood, Urine 2+ Abnormal NEG [facility] Comment on above: Performed By: #### F LUABA #### [facility] [address] [place], [place] [id number] Bed Laborer: Christian Muir MD Clarity (U) Clear Normal CLEAR [facility] Comment on above: Performed By: #### F LUABA #### [facility] [address] [place] [address] Bed Laborer: Christian Muir MD Color (U) Yellow Normal YEL [facility] Comment on above: Performed By: #### F LUABA #### [facility] [address] [place], [place] [id number] Bed Laborer: Christian Muir MD Comment Normal [facility] Comment on above: Performed By: #### F LUABA #### [facility] [address] [place], [place] [id number] Bed Laborer: Christian Muir MD Glucose Ql (U) Negative Normal NEG [facility] Comment on above: Performed By: #### F LUABA #### [facility] [address] [place], [place] [phone] Bed Laborer: Christian Muir MD Ketones Ql (U) TRACE Abnormal NEG [facility] Comment on above: Performed By: #### F LUABA #### [facility] [address] [place] [address] Bed Laborer: Christian Muir MD Leukocyte esterase Test strip Ql (U) Negative Normal NEG [facility] Comment on above: Performed By: #### F LUABA #### [facility] [address] [place] [address] Bed Laborer: Christian Muir MD Nitrite,Ur Negative Normal NEG [facility] Comment on above: Performed By: #### F LUABA #### [facility] [address] [place], [place] [id number] Bed Laborer: Christian Muir MD PH,Ur 5.0 Normal 5.0-8.0 [facility] Comment on above: Performed By: #### F LUABA #### [facility] [address] [place] [address] Bed Laborer: Christian Muir MD Protein Ql (U) 1+ mg/dL Abnormal NEG [facility] Comment on above: Performed By: #### F LUABA #### [facility] [address] [place] [address] Bed Laborer: Christian Muir MD Spec. [place],Ur 1.020 Normal 1.005-1.03 0 [facility] Comment on above: Performed By: #### F ROYAL #### [facility] [address] [place] [address] Bed Laborer: Christian Muir MD Urobilinogen,Ur Normal Normal 0.0-1.0 [facility] Comment on above: Performed By: #### F CHUCKABA #### [facility] [address] [place] [address] Bed Laborer: Christian Muir MD Urinalysis with Reflex to Cu ltureon 10-23-2023 Bilirubin Ql (U) Negative NEGATIVE [facility] Clarity (U) Clear Clear [facility] Color (U) Yellow Yellow [facility] Comment [facility] Glucose Test strip (U) [Mass/Vol] Negative NEGATIVE mg/dL [facility] Hemoglobin Auto test strip Ql (U) 2+ Abnormal NEGATIVE [facility] Interpretation and review of laboratory results Abnormal [facility] Ketones (U) [Mass/Vol] TRACE Abnormal NEGATIVE mg/dL [facility] Leukocyte esterase Test strip Ql (U) Negative NEGATIVE [facility] Nitrite Ql (U) Negative NEGATIVE [facility] pH (U) 5.0 [pH] 5.0 - 8.0 [facility] Protein (U) [Mass/Vol] 1+ Abnormal NEGATIVE mg/dL [facility] Specific gravity (U) [Rel density] 1.020 1.005 - 1.030 [facility] Urobilinogen Qn (U) Normal 0.0 - 1. 0 EU/dL [facility] Urinalysis,Microon 4 ----- Normal [facility] Comment on above: Performed By: #### F ROYAL #### [facility] [address] [place] [address] Bed Laborer: Christian Muir MD Bacteria RARE Abnormal NONE [facility] Comment on above: Performed By: #### F LUABA #### [facility] [address] [place] [address] Bed Laborer: Christian Muir MD Epithelial cells LM Ql (Urine sed) 5 TO 10 Normal [facility] Comment on above: Performed By: #### F LUABA #### [facility] [address] [place] [address] Bed Laborer: Christian Muir MD Urine RBC's 2 TO 5 Normal 0-2 [facility] Comment on above: Performed By: #### F LUABA #### [facility] [address] [place] [address] Bed Laborer: Christian Muir MD Urine WBC's NONE SEEN Normal 0 [facility] Comment on above: Performed By: #### F LUABA #### [facility] [address] [place] [address] Bed Laborer: Christian Muir MD BUN + Creatinineon 4 Creatinine [Mass/Vol] 1.2 mg/dL High 0.5-0.9 [facility] Comment on above: Performed By: #### B UNCRT #### [facility] [address] [place] [address] Bed Laborer: Christian Muir MD GFR/1.73 sq M.predicted among non-blacks MDRD (S/P/Bld) [Vol rate/Area] 46 mL/min/{1.73_m2} Low >60 [facility] Comment on above: Result Comment: These [...] secretion. Performed By: #### B UNCRT #### [facility] [address] [place] [address] Bed Laborer: Christian Muir MD Urea nitrogen [Mass/Vol] 35 mg/dL High 02-20 [facility] Comment on above: Performed By: #### B UNCRT #### [facility] [address] [place] [address] Bed Laborer: Christian Muir MD CT UROGRAMon 10-22-2023 CT [...] Valentin Jr., MD 10/22/23 Final result Normal [facility] Cult,Urineon 10-02-2023 Cult,Urine Specimen Description .CLEAN CATCH [...] Tobramycin <=1 SUSCEPTIBLE Trimethoprim/Sulfa <=20 SUSCEPTIBLE Susceptible [facility] Comment on above: Performed By: #### F LUVICK #### [facility] [address] [place], [place] [phone] Bed Laborer: Christian Muir MD Urinalysis w/ Microon 2023 ----- Normal [facility] Comment on above: Performed By: #### U AMIC #### [facility] [address] [place], [place] [phone] Bed Laborer: Christian Muir MD Bacteria 2+ Abnormal NONE [facility] Comment on above: Performed By: #### U AMIC #### [facility] [address] [place], [place] [phone] Bed Laborer: Christian Muir MD Bilirubin, SemiQt,Ur Negative Normal NEG [facility] Comment on above: Performed By: #### U AMIC #### [facility] [address] [place], [place] [id number] Bed Laborer: Christian Muir MD Blood, Urine 2+ Abnormal NEG [facility] Comment on above: Performed By: #### U AMIC #### [facility] [address] [place], [place] [phone] Bed Laborer: Christian Muir MD Clarity (U) Cloudy Abnormal CLEAR [facility] Comment on above: Performed By: #### U AMIC #### [facility] [address] [place], [place] [phone] Bed Laborer: Christian Muir MD Color (U) Yellow Normal YEL [facility] Comment on above: Performed By: #### U AMIC #### [facility] [address] [place], [place] [id number] Bed Laborer: Christian Muir MD Comment Normal [facility] Comment on above: Performed By: #### U AMIC #### [facility] [address] [place] [address] Bed Laborer: Christian Miur MD Epithelial cells LM Ql (Urine sed) 2 TO 5 Normal [facility] Comment on above: Performed By: #### U AMIC #### [facility] [address] [place], [place] [phone] Bed Laborer: Chrisitan Muir MD Glucose Ql (U) Negative Normal NEG [facility] Comment on above: Performed By: #### U AMIC #### [facility] [address] [place], [place] [phone] Bed Laborer: Christian Muir MD Ketones Ql (U) Negative Normal NEG [facility] Comment on above: Performed By: #### U AMIC #### [facility] [address] [place] [address] Bed Laborer: Christian Muir MD Leukocyte esterase Test strip Ql (U) 3+ Abnormal NEG [facility] Comment on above: Performed By: #### U AMIC #### [facility] [address] [place], [place] [phone] Bed Laborer: Christian Muir MD Nitrite,Ur Negative Normal NEG [facility] Comment on above: Performed By: #### U AMIC #### [facility] [address] [place], [place] [id number] Bed Laborer: Christian Muir MD PH,Ur 6.5 Normal 5.0-8.0 [facility] Comment on above: Performed By: #### U AMIC #### [facility] [address] [place], [place] [id number] Bed Laborer: Christian Muir MD Protein Ql (U) TRACE Abnormal NEG [facility] Comment on above: Performed By: #### U AMIC #### [facility] [address] [place] [phone] Bed Laborer: Christian Muir MD Spec. [place],Ur 1.010 Normal 1.005-1.03 0 [facility] Comment on above: Performed By: #### U AMIC #### [facility] [address] [place] [address] Bed Laborer: Christian Muir MD Urine RBC's 10 TO 20 Normal 0-2 [facility] Comment on above: Performed By: #### U AMIC #### [facility] [address] [place] [phone] Bed Laborer: Christian Muir MD Urine WBC's 20 TO 50 Normal 0 [facility] Comment on above: Performed By: #### U AMIC #### [facility] [address] [place] [phone] Bed Laborer: Christian Muir MD Urobilinogen,Ur Normal Normal 0.0-1.0 [facility] Comment on above: Performed By: #### U AMIC #### [facility] [address] [place] [phone] Bed Laborer: Christian Muir MD IntraOperative Documentson 0 09-23-2023 IntraOperative Documents [id number] Normal [facility] Result Letter Officeon 09-22 Result Letter Office (Inserted Image. Un able to display) September 23, 2023 MARY JANE RIOS [address] [place] [address] : 1945 Below is a summary of [...] if you wish to make an appointment. [facility] [phone] Normal [facility] Alanine aminotransferase [En zymatic activity/volume] in Serum or PlasmaOrdered By: Nuvia Sanchez on 09-19-2023 ALT [Catalytic activity/Vol] 12 U/L 7-52 [facility] Albumin [Mass/volume] in Ser um or Plasma by Bromocresol green (BCG) dye binding methoOrdered By: Nuvia Sanchez on 09-19-2023 Albumin BCG dye [Mass/Vol] 3.9 g/dL 3.5-5.7 [facility] Alkaline phosphatase [Enzyma tic activity/volume] in Serum or PlasmaOrdered By: Nuvia Sanchez on 09-19-2023 ALP [Catalytic activity/Vol] 59 U/L 34-104 [facility] Aspartate aminotransferase [ Enzymatic activity/volume] in Serum or PlasmaOrdered By: Nuvia Sanchez on 09-19-2023 AST [Catalytic activity/Vol] 13 U/L 13-39 [facility] Automated erythrocytes count in urine sediment (number/area)Ordered By: Nuvia Sanchez on 09-19-2023 RBC Auto (Urine sed) [#/Area] 0-1 [HPF] 0-4 [facility] Automated leukocytes count i n urine sediment (number/area)Ordered By: Nuvia Sanchez on 09-19-2023 WBC Auto (Urine sed) [#/Area] None seen [HPF] 0-4 [facility] Basophils Auto (Bld) [#/Vol] Ordered By: Nuvia Sanchez on 09-19-2023 Basophils (Bld) [#/Vol] 0.0 10*3/uL 0.0-0.2 [facility] Basophils/100 WBC Auto (Bld) Or[facility]: [facility] Basophils/100 WBC (Bld) 0.3 % . [facility] Bilirubin Test strip Ql (U)O rdered By: Nuvia Sanchez on 09-19-2023 Bilirubin Ql (U) Negative Negative [facility] Bilirubin.total [Mass/volume ] in Serum or PlasmaOrdered By: Nuvia Sanchez on 09-19-2023 Bilirubin [Mass/Vol] 0.2 mg/dL 0.3-1.0 [facility] Calcium [Mass/volume] in Ser um or PlasmaOrdered By: Nuvia Sanchez on 09-19-2023 Calcium [Mass/Vol] 8.6 mg/dL 8.6-10.3 [facility] Carbon dioxide, total [Moles /volume] in Serum or PlasmaOrdered By: Nuvia Sanchez on 09-19-2023 CO2 [Moles/Vol] 24.3 mmol/L 21.0-31.0 [facility] Chloride [Moles/volume] in S liat or PlasmaOrdered By: Nuvia Sanchez on 09-19-2023 Chloride [Moles/Vol] 107 mmol/L 98-107 [facility] Color Auto (U)Ordered By: Rajani Patel on 09-19-2023 Color (U) Yellow Yellow [facility] Creatinine [Mass/volume] in Serum or PlasmaOrdered By: Nuvia Sanchez on 09-19-2023 Creatinine [Mass/Vol] 1.35 mg/dL 0.60-1.20 [facility] Eosinophils Auto (Bld) [#/Vo l]Ordered By: Nuvia Sanchez on 09-19-2023 Eosinophils (Bld) [#/Vol] 0.1 10*3/uL 0.0-0.45 [facility] Eosinophils/100 WBC Auto (Bl d)Ordered By: Nuvia Sanchez on 09-19-2023 Eosinophils/100 WBC (Bld) 0.8 % . [facility] Erythrocyte distribution wid th Auto (RBC) [Ratio]Ordered By: Nuvia Sanchez on 09-19-2023 Erythrocyte distribution width (RBC) [Ratio] 15.2 % 11.9-15.3 [facility] Erythrocyte sedimentation ra te by Photometric methodOrdered By: Nuvia Sanchez on 09-19-2023 ESR Photometric method (Bld) [Velocity] 15 mm/hr 0-29 [facility] Globulin Calc (S) [Mass/Vol] Ordered By: Nuvia Sanchez on 09-19-2023 Globulin (S) [Mass/Vol] 2.2 g/dL [facility] Glucose [Mass/volume] in Ser um or PlasmaOrdered By: Nuvia Sanchez on 09-19-2023 Glucose [Mass/Vol] 84 mg/dL 70-100 [facility] Comment on above: ADA recommended refe rence rangeRandom Glucose Reference Range is dependent on time and content of last meal. Glucose of more than 200 mg/dL in a nonstressed, ambulatory subject supports the diagnosis of Diabetes Mellitus. Hematocrit Auto (Bld) [Volum e fraction]Ordered By: Nuvia Sanchez on 09-19-2023 Hematocrit (Bld) [Volume fraction] 34.5 % 34.0-46.4 [facility] Hemoglobin [Mass/volume] in BloodOrdered By: Nuvia Sanchez on 09-19-2023 Hemoglobin (Bld) [Mass/Vol] 11.4 g/dL 11.8-15.4 [facility] Ketones Auto test strip (U) [Mass/Vol]Ordered By: Nuvia Sanchez on 09-19-2023 Ketones (U) [Mass/Vol] Negative Negative [facility] Laboratory - UrinalysisOrder ed By: Nuvia Sanchez on 09-19-2023 Hyaline casts LM Ql (Urine sed) 0-8 [LPF] 0-8 [facility] Leukocytes [#/volume] correc pepito for nucleated erythrocytes in Blood by Automated counOrdered By: Nuvia Sanchez on 09-19-2023 WBC corrected for nucl RBC Auto (Bld) [#/Vol] 8.9 10*3/uL 3.8-11.6 [facility] Lymphocytes Auto (Bld) [#/Vo l]Ordered By: Nuvia Sanchez on 09-19-2023 Lymphocytes (Bld) [#/Vol] 1.6 10*3/uL 1.00-4.8 [facility] Lymphocytes/100 WBC Auto (Bl d)Ordered By: Nuvia Sanchez on 09-19-2023 Lymphocytes/100 WBC (Bld) 18.2 % . [facility] MCH Auto (RBC) [Entitic mass ]Ordered By: Nuvia Sanchez on 09-19-2023 MCH (RBC) [Entitic mass] 30.4 pg 24.7-34.3 [facility] MCHC Auto (RBC) [Mass/Vol]Or dered By: Nuvia Sanchez on 09-19-2023 MCHC (RBC) [Mass/Vol] 33.2 g/dL 32.0-35.0 [facility] MCV Auto (RBC) [Entitic vol] Ordered By: Nuvia Sanchez on 09-19-2023 MCV (RBC) [Entitic vol] 91.6 fL 80-100 [facility] Monocytes Auto (Bld) [#/Vol] Ordered By: Nuvia Sanchez on 09-19-2023 Monocytes (Bld) [#/Vol] 0.6 10*3/uL 0.0-0.8 [facility] Monocytes/100 WBC Auto (Bld) Ordered By: Nuvia Sanchez on 09-19-2023 Monocytes/100 WBC (Bld) 6.5 % . [facility] Neutrophils Auto (Bld) [#/Vo l]Ordered By: Nuvia Sanchez on 09-19-2023 Neutrophils (Bld) [#/Vol] 6.6 10*3/uL 1.8-7.7 [facility] Neutrophils/100 WBC Auto (Bl d)Ordered By: Nuvia Sanchez on 09-19-2023 Neutrophils/100 WBC (Bld) 74.2 % . [facility] Nitrite Test strip Ql (U)Ord ered By: Nuvia Sanchez on 09-19-2023 Nitrite Ql (U) Negative Negative [facility] No Panel InformationOrdered By: Nuvia Sanchez on 09-19-2023 Estimated GFR (CKD-EPI) 40.226 mL/Min [facility] Creatinine Clearance (Chem N/A [facility] Nucleated erythrocytes [Pres ence] in Blood by Automated countOrdered By: Nuvia Sanchez on 09-19-2023 Nucleated RBC Auto Ql (Bld) 0.1 /100{WBC} 0-0.5 [facility] Platelet mean volume Auto (B ld) [Entitic vol]Ordered By: Nuvia Sanchez on 09-19-2023 Platelet mean volume (Bld) [Entitic vol] 8.6 fL 6.3-10.7 [facility] Platelets Auto (Bld) [#/Vol] Ordered By: Nuvia Sanchez on 09-19-2023 Platelets (Bld) [#/Vol] 214 10*3/uL 150-450 [facility] Potassium [Moles/volume] in Serum or PlasmaOrdered By: Nuvia Sanchez on 09-19-2023 Potassium [Moles/Vol] 4.2 mmol/L 3.5-5.1 [facility] Protein Auto test strip (U) [Mass/Vol]Ordered By: Nuvia Sanchez on 09-19-2023 Protein (U) [Mass/Vol] Negative Negative [facility] Protein [Mass/volume] in Ser um or PlasmaOrdered By: Nuvia Sanchez on 09-19-2023 Protein [Mass/Vol] 6.1 g/dL 6.4-8.9 [facility] RBC Auto (Bld) [#/Vol]Ordere d By: Nuvia Sanchez on 09-19-2023 RBC (Bld) [#/Vol] 3.76 10*6/uL 3.60-5.00 [facility] Serum or plasma albumin/glob ulin mass ratioOrdered By: Nuvia Sanchez on 09-19-2023 Albumin/Globulin [Mass ratio] 1.8 {ratio} [facility] Serum or plasma anion gap de terminationOrdered By: Nuvia Sanchez on 09-19-2023 Anion gap [Moles/Vol] 9.9 mmol/L 6.0-15.0 [facility] Sodium [Moles/volume] in Ser um or PlasmaOrdered By: Nuvia Sanchez on 09-19-2023 Sodium [Moles/Vol] 137 mmol/L 136-145 [facility] Specific gravity Auto test s trip (U) [Rel density]Ordered By: Nuvia Sanchez on 09-19-2023 Specific gravity (U) [Rel density] 1.011 1.001-1.03 0 [facility] Squamous epithelial cells de tection in urine sediment by light microscopyOrdered By: Nuvia Sanchez on 09-19-2023 Epithelial cells.squamous LM Ql (Urine sed) None seen [HPF] 0-2 [facility] Urea nitrogen [Mass/volume] in Serum or PlasmaOrdered By: Nuvia Sanchez on 09-19-2023 Urea nitrogen [Mass/Vol] 32 mg/dL 7-25 [facility] Urine bacteria detection by automated methodOrdered By: Nuvia Sanchez on 09-19-2023 Bacteria Auto Ql (U) None seen None Seen [facility] Urine clarity by refractomet ry automatedOrdered By: Nuvia Sanchez on 09-19-2023 Clarity Refractometry automated (U) Clear Clear [facility] Urine glucose measurement by automated test strip (mass/volume)Ordered By: Nuvia Sanchez on 09-19-2023 Glucose Auto test strip (U) [Mass/Vol] Normal mg/dL Normal [facility] Urine hemoglobin detection b y automated test stripOrdered By: Nuvia Sanchez on 09-19-2023 Hemoglobin Auto test strip Ql (U) Negative Negative [facility] Urine leukocyte esterase det ection by automated test stripOrdered By: Nuvia Sanchez on 09-19-2023 Leukocyte esterase Auto test strip Ql (U) Negative Negative [facility] Urobilinogen Auto test strip (U) [Mass/Vol]Ordered By: Nuvia Sanchez on 09-19-2023 Urobilinogen (U) [Mass/Vol] Normal mg/dL Normal [facility] WBC Auto (Bld) [#/Vol]Ordere d By: Nuvia Sanchez on 09-19-2023 WBC (Bld) [#/Vol] 8.9 10*3/uL 3.8-11.6 [facility] pH Auto test strip (U)Ordere d By: Nuvia Sanchez on 09-19-2023 pH (U) 6.0 [pH] 5.0-9.0 [facility] Consenton 09-17-2023 Consent [id number] Normal [facility] Discharge Instructionson Discharge Instructions [id number] Normal [facility] Main OR Intraoperative Recor don 09-17-2023 Main OR Intraoperative Record IntraOp Document Type FT Summary Primary Physician: Davion Olivares MD Finalized Date/Time: 09/17/23 08:19:33 Pt. Name: BLANCAMARY JANEO.B./Sex: 1945 Female Med Rec #: [id number] Physician: Davion Olivares MD Financial #: [id number] Pt. Type: O Room/Bed: / Admit/Disch: 09/16/23 [...] Beaver RN, Yong Fang Role Performed Anesthesiologist Heel Coverer Machine Operator - Primary Scrub - Primary Electronics Warfare Technician Time In 09/16/23 14:15:00 09/16/23 14:15:00 09/16/23 14:15:00 Time Out 09/16/23 14:42:00 09/16/23 14:42:00 09/16/23 14:42:00 Procedure COLONOSCOPY(.) COLONOSCOPY(.) COLONOSCOPY(.) Comments Dr. Delgado supervising case Last Modified By: Sd CAICEDO, Janell Beaver RN, Janell Beaver RN, Janell Reeves 09/16/23 14:41:12 F 09/16/23 14:41:12 F 09/16/23 14:41:12 Entry 4 Entry 5 Case Attendee Alexa GUAN, Davion Osorio MD Role Performed Staff - Other Surgeon - [...] Micala E, Alexa GUAN, Marshall Cleveland MD, Muhammad Talal Outcomes Met? Yes Last Modified By: Janell [...] polypectomy x3. Primary Procedure Yes Primary Surgeon Davion Olivares MD Start 09/16/23 14:20:00 Stop 09/16/23 14:39:00 Anesthesia [...] and tissue Entry 1 Skin Integrity Intact, [place], Warm, and Skin Abnormality No Dry Outcomes Met? Yes Last Modified By: Janell Beaver RN 09/16/23 14:23:55 Post-Care Text: The patient is free from signs and symptoms of injury caused by extraneous objects Patient Positioning FT Pre-Care Text: Identifies physical alterations that require additional precautions for procedure-specific positioning, verifies presence of prosthe (more content not included)... [facility] Postoperative Documentson Postoperative Documents [id number]#[id number] [facility] Consent for Treatmenton 08-29 Consent for Treatment [id number] [facility] Discharge Instructionson Discharge Instructions MARY JANE RIOS :1945 Visit Date:09/16/2023 Inpatient Discharge Instructions Your Care Team Admitting Physician - Davion Olivares MD Referring Physician - Davion Olivares MD Talal Reason for Your Visit INTESTIONAL METAPLASIA OF [...] tablet) fluticasone nasal (fluticasone 0.05 mg/inh Nasal [place]) levothyroxine (levothyroxine 50 mcg (0.05 mg) Tab) [...] Up Appointments after Discharge Follow Up with Davino Olivares When: Comments: office will call for follow up Where: [address], [address] [id number] [id number] Business (1) Medications What How Much When Instructions Next Dose Changed famotidine 20 Milligram By Mouth Once a day (at bedtime) Changed famotidine (famotidine 40 mg Tab) 1 Tablets By Mouth Once a day (at bedtime) Pickup at [id number] Unchanged alprazolam 0.5 Milligram By Mouth At [...] fluticasone nasal (fluticasone 0.05 mg/ inh Nasal Boyden) 50 Microgram Nasal Inhalation Every day Unchanged [...] Pharmacy Information (more content not included)... Normal [facility] Comment on above: Result Comment: Elec [...] Education and Follow-up: Counseled: Patient, Family. Normal [facility] Comment on above: Result Comment: Elec tronically Signed By: Marshall STEINER, Davion Zarate\.br\Date and Time Signed: 09/16/23 14:42 EDT Other Comment: Rachel ng Attachment - attachment storage system not supported [id number] Can be viewed in source system Missing Attachment - attachment storage system not supported [id number] Can be viewed in source system Missing Attachment - attachment storage system not supported [id number] Can be viewed in source system Missing Attachment - attachment storage system not supported [id number] Can be viewed in source system Missing Attachment - attachment storage system not supported [id number] Can be viewed in source system Missing Attachment - attachment storage system not supported [id number] Can be viewed in source system Missing Attachment - attachment storage system not supported [id number] Can be viewed in source system Missing Attachment - attachment storage system not supported [id number] Can be viewed in source system Missing Attachment - attachment storage system not supported [id number] Can be viewed in source system Missing Attachment - attachment storage system not supported [id number] Can be viewed in source system Missing Attachment - attachment storage system not supported [id number] Can be viewed in source system Missing Attachment - attachment storage system not supported [id number] Can be viewed in source system Gastroenterology [...] Historical Co (more content not included)... Normal [facility] Comment on above: Result Comment: Elec tronically Signed By: Davion Olivares MD\.br\Date and Time Signed: 09/16/23 14:16 EDT Inpatient Patient Summaryon 09-16-2023 Inpatient Patient Summary [address] [address] [facility] Clinical Discharge Instructions PERSON INFORMATION Name: MARY JANE RIOS PHYSICIANS Admitting Physician: Davion Olivares MD Attending Physician: Davion Olivares MD PCP: NABILA STEINER, RONI Ortiz Discharge Diagnosis: Colon polyps Comment: PATIENT EDUCATION INFORMATION Instructions: Medication Leaflets: Follow up: MEDICATION LIST Medications to Continue Taking That Have Changed [id number], [address], [place] [id number], [phone] START: famotidine (famotidine 40 mg Tab) 1 [...] day. fluticasone nasal (fluticasone 0.05 mg/inh Nasal Boyden) 50 Microgram Nasal Inhalation every day. levothyroxine [...] Milligram By Mouth every day. Comment: Home [facility] Main OR PACU I Recordon 08-29 Main OR PACU I Record PACU Phase I Docum ent Type FT Summary Primary Physician: Davion Olivares MD Finalized Date/Time: 09/16/23 16:43:13 Pt. Name: MARY JANE RIOS /Sex: 1945 Female Med Rec #: [id number] Physician: Davion Olivares MD Financial #: [id number] Pt. Type: O Room/Bed: / Admit/Disch: 09/16/23 [...] By: Miley Zhou RN 09/16/23 16:43 Normal [facility] Main OR Preoperative Recordo n 09-16-2023 Main OR Preoperative Record Holding Area Document Type FT Summary Primary Physician: Davion Olivares MD Finalized Date/Time: 09/16/23 13:10:36 Pt. Name: BLANCAMARY JANE/Sex: 1945 Female Med Rec #: [id number] Physician: Davion Olivares MD Financial #: [id number] Pt. Type: O Room/Bed: / Admit/Disch: 09/16/23 [...] By: Eliza Lyn RN 09/16/23 13:10 Normal [facility] Monitor Recordon 09-16-2023 Monitor Record [id number] Normal [facility] Monitor Record [id number] Normal [facility] Outpatient Surgery Discharge Instructionon 09-16-2023 Outpatient Surgery Discharge Instruction [place] [id number] Patient Discharge Instructions PERSON INFORMATION Name: MARY [...] to serve you. Thank you for choosing [facility] HERE ARE THE MEDICATION CHANGES THAT OCCURRED DURING YOUR HOSPITAL STAY Medications to Continue Taking That Have Changed [id number], [address], [place] [id number], [phone] START: famotidine (famotidine 40 mg Tab) 1 [...] day. fluticasone nasal (fluticasone 0.05 mg/inh Nasal Boyden) 50 Microgram Nasal Inhalation every day. levothyroxine [...] day. PATIENT EDUCATION INFORMATION Instructions: Medication Leaflets: [facility] Patient Education - Texton 0 09-16-2023 Patient Education - Text [facility] Progress Note-Physicianon Progress Note-Physician Patient: MARY [...] 90 tab(s), Refills(s) 6, Pharmacy: [facility] #[id number], 162, cm, 09/16/23 10:47:00 EDT, Height/Length Dosing, [...] of stomach acid fluticasone 0.05 mg/inh Nasal Boyden: 50 mcg, Nasal, Daily, Refill(s) 0, Allergy [...] day (at bedtime) fluticasone 0.05 mg/inh Nasal Boyden 50 mcg, Nasal, Daily levothyroxine 50 mcg [...] All Problems Acid reflux / SNOMED CT 837376711 / Confirmed Anticoagulated / SNOMED CT 338980035 / Confirmed Asymptomatic microscopic hematuria / SNOMED CT 2888270551 / Confirmed Chronic back pain / SNOMED CT 708318941 / Confirmed Epigastric pain / SNOMED CT 911983386 / Confirmed H/O: arthritis / SNOMED CT 909026962 / Confirmed History of colon polyps / SNOMED CT 6865679514 / Confirmed Hypercholesterolemia / SNOMED CT 25105562 / Confirmed Hypothyroidism / SNOMED CT 26102955 / Confirmed Internal hemorrhoids / SNOMED CT 952348750 / Confirmed Intestinal metaplasia of stomach / SNOMED CT 468377910 / Confirmed Low vitamin B12 level / SNOMED CT 5574087017 / Confirmed Mixed incontinence / SNOMED CT 31629157 / Confirmed Mixed stress and urge urinary incontinence / SNOMED CT 1640459814 / Confirmed Nocturia / SNOMED CT 939464850 / Confirmed Obesity / ICD-9-CM 278.00 / Possible Shoulder strain / SNOMED CT 275272940 / Confirmed Sleep apnea / SNOMED CT 901729457 / Confirmed USES CPAP Stress incontinence / SNOMED CT 331225178 / Confirmed TMJ (temporomandibular joint disorder) / SNOMED CT 81287059 / Confirmed Urge incontinence / SNOMED CT 915957587 / Confirmed Weak urinary stream / SNOMED CT 871856134 / Confirmed Resolved: Constipation / SNOMED CT 28960762 Resolved: Diverticulosis / SNOMED CT 5563209418 Resolved: Frequency of urination / SNOMED CT 358125883 Resolved: Gastritis / SNOMED CT 4340230 Resolved: Hx of post-iza (more content not included)... Normal [facility] Comment on above: Result Comment: Elec [...] of stomach acid fluticasone 0.05 mg/inh Nasal Boyden: 50 mcg, Nasal, Daily, Refill(s) 0, Allergy [...] day (at bedtime) fluticasone 0.05 mg/inh Nasal Boyden 50 mcg, Nasal, Daily levothyroxine 50 mcg [...] All Problems Acid reflux / SNOMED CT 734686473 / Confirmed Anticoagulated / SNOMED CT 818288517 / Confirmed Asymptomatic microscopic hematuria / SNOMED CT 5660260681 / Confirmed Chronic back pain / SNOMED CT 708816844 / Confirmed Epigastric pain / SNOMED CT 622848321 / Confirmed H/O: arthritis / SNOMED CT 217995097 / Confirmed History of colon polyps / SNOMED CT 0607738125 / Confirmed Hypercholesterolemia / SNOMED CT 00121032 / Confirmed Hypothyroidism / SNOMED CT 31014202 / Confirmed Internal hemorrhoids / SNOMED CT 148648509 / Confirmed Intestinal metaplasia of stomach / SNOMED CT 454059908 / Confirmed Low vitamin B12 level / SNOMED CT 7474579987 / Confirmed Mixed incontinence / SNOMED CT 80986069 / Confirmed Mixed stress and urge urinary incontinence / SNOMED CT 7852807157 / Confirmed Nocturia / SNOMED CT 566123047 / Confirmed Obesity / ICD-9-CM 278.00 / Possible Shoulder strain / SNOMED CT 417196499 / Confirmed Sleep apnea / SNOMED CT 162538802 / Confirmed USES CPAP Stress incontinence / SNOMED CT 692683480 / Confirmed TMJ (temporomandibular joint disorder) / SNOMED CT 51363870 / Confirmed Urge incontinence / SNOMED CT 173989883 / Confirmed (more content not included)... Normal [facility] Comment on above: Result Comment: Elec tronically Signed By: Danny Anesthesiology (), Obie Tyler\.br\Date and Time Signed: 09/16/23 13:35 EDT COVID-19, Rapidon 07-01-2023 Interpretation and review of laboratory results Abnormal [facility] SARS-CoV-2 (COVID-19) RdRp gene JUAQUIN+probe Ql (Resp) Detected Abnormal Not Detected [facility] Comment on above: Rapid NAAT: [...] this assay. Fact sheet for Healthcare Providers: https://www.fda.gov/media/336453/download Fact sheet for Patients: https://www.fda.gov/media/449651/download Methodology: Isothermal Nucleic Acid Amplification Results reported to the appropriate Health Department Specimen Description .NASOPHARYNGEAL SWAB [facility] Rapid influenza A/B antigens on 07-01-2023 FLUAV Ag Ql (Unsp spec) Negative NEGATIVE [facility] Comment on above: for Influenza A Anti gen FLUBV Ag Ql (Unsp spec) Negative NEGATIVE [facility] Comment on above: for Influenza B Anti gen. [facility] Alanine aminotransferase [En zymatic activity/volume] in Serum or PlasmaOrdered By: Obie Hylton on 05-27-2023 ALT [Catalytic activity/Vol] 9 U/L [facility] Albumin [Mass/volume] in Ser um or Plasma by Bromocresol green (BCG) dye binding methoOrdered By: Obie Hylton on 05-27-2023 Albumin BCG dye [Mass/Vol] 3.9 g/dL 3.5-5.7 [facility] Alkaline phosphatase [Enzyma tic activity/volume] in Serum or PlasmaOrdered By: Obie Hylton on 05-27-2023 ALP [Catalytic activity/Vol] 51 U/L 34-104 [facility] Aspartate aminotransferase [ Enzymatic activity/volume] in Serum or PlasmaOrdered By: Obie Hylton on 05-27-2023 AST [Catalytic activity/Vol] 14 U/L 13-39 [facility] Automated erythrocytes count in urine sediment (number/area)Ordered By: Obie Hylton on 05-27-2023 RBC Auto (Urine sed) [#/Area] 0-1 [HPF] 0-4 [facility] Automated leukocytes count i n urine sediment (number/area)Ordered By: Obie Hylton on 05-27-2023 WBC Auto (Urine sed) [#/Area] 0-1 [HPF] 0-4 [facility] Basophils Auto (Bld) [#/Vol] Ordered By: Obie Hylton on 05-27-2023 Basophils (Bld) [#/Vol] 0.0 10*3/uL 0.0-0.2 [facility] Basophils/100 WBC Auto (Bld) Ordered By: Obie Hylton on 05-27-2023 Basophils/100 WBC (Bld) 0.4 % . [facility] Bilirubin Test strip Ql (U)O rdered By: Obie Hylton on 05-27-2023 Bilirubin Ql (U) Negative Negative [facility] Bilirubin.total [Mass/volume ] in Serum or PlasmaOrdered By: Obie Hylton on 05-27-2023 Bilirubin [Mass/Vol] 0.5 mg/dL 0.3-1.0 [facility] Calcium [Mass/volume] in Ser um or PlasmaOrdered By: Obie Hylton on 05-27-2023 Calcium [Mass/Vol] 8.9 mg/dL 8.6-10.3 [facility] Carbon dioxide, total [Moles /volume] in Serum or PlasmaOrdered By: Obie Hylton on 05-27-2023 CO2 [Moles/Vol] 27.0 mmol/L 21.0-31.0 [facility] Chloride [Moles/volume] in S liat or PlasmaOrdered By: Obie Hylton on 05-27-2023 Chloride [Moles/Vol] 112 mmol/L 98-107 [facility] Color Auto (U)Ordered By: Cindy ttrohiniclovis Hylton on 05-27-2023 Color (U) Yellow Yellow [facility] Creatinine [Mass/volume] in Serum or PlasmaOrdered By: Obie Hylton on 05-27-2023 Creatinine [Mass/Vol] 1.20 mg/dL 0.60-1.20 [facility] Eosinophils Auto (Bld) [#/Vo l]Ordered By: Obie Hylton on 05-27-2023 Eosinophils (Bld) [#/Vol] 0.1 10*3/uL 0.0-0.45 [facility] Eosinophils/100 WBC Auto (Bl d)Ordered By: Obie Hylton on 05-27-2023 Eosinophils/100 WBC (Bld) 2.0 % . [facility] Erythrocyte distribution wid th Auto (RBC) [Ratio]Ordered By: Obie Hylton on 05-27-2023 Erythrocyte distribution width (RBC) [Ratio] 14.9 % 11.9-15.3 [facility] Erythrocyte sedimentation ra te by Photometric methodOrdered By: Obie Hylton on 05-27-2023 ESR Photometric method (Bld) [Velocity] 17 mm/hr 0-29 [facility] Globulin Calc (S) [Mass/Vol] Ordered By: Obie Hylton on 05-27-2023 Globulin (S) [Mass/Vol] 2.1 g/dL [facility] Glucose [Mass/volume] in Ser um or PlasmaOrdered By: Obie Hylton on 05-27-2023 Glucose [Mass/Vol] 91 mg/dL 70-100 [facility] Comment on above: ADA recommended refe rence rangeRandom Glucose Reference Range is dependent on time and content of last meal. Glucose of more than 200 mg/dL in a nonstressed, ambulatory subject supports the diagnosis of Diabetes Mellitus. Hematocrit Auto (Bld) [Volum e fraction]Ordered By: Obie Hylton on 05-27-2023 Hematocrit (Bld) [Volume fraction] 34.4 % 34.0-46.4 [facility] Hemoglobin [Mass/volume] in BloodOrdered By: Obie Hylton on 05-27-2023 Hemoglobin (Bld) [Mass/Vol] 11.7 g/dL 11.8-15.4 [facility] Ketones Auto test strip (U) [Mass/Vol]Ordered By: Obie Hylton on 05-27-2023 Ketones (U) [Mass/Vol] Negative Negative [facility] Laboratory - UrinalysisOrder ed By: Obie Hylton on 05-27-2023 Hyaline casts LM Ql (Urine sed) 0-8 [LPF] 0-8 [facility] Leukocytes [#/volume] correc pepito for nucleated erythrocytes in Blood by Automated counOrdered By: Obie Hylton on 05-27-2023 WBC corrected for nucl RBC Auto (Bld) [#/Vol] 3.9 10*3/uL 3.8-11.6 [facility] Lymphocytes Auto (Bld) [#/Vo l]Ordered By: Oibe Hylton on 05-27-2023 Lymphocytes (Bld) [#/Vol] 1.1 10*3/uL 1.00-4.8 [facility] Lymphocytes/100 WBC Auto (Bl d)Ordered By: Obie Hylton on 05-27-2023 Lymphocytes/100 WBC (Bld) 27.3 % . [facility] MCH Auto (RBC) [Entitic mass ]Ordered By: Obie Hylton on 05-27-2023 MCH (RBC) [Entitic mass] 31.7 pg 24.7-34.3 [facility] MCHC Auto (RBC) [Mass/Vol]Or dered By: Obie Hylton on 05-27-2023 MCHC (RBC) [Mass/Vol] 33.9 g/dL 32.0-35.0 [facility] MCV Auto (RBC) [Entitic vol] Ordered By: Obie Hylton on 05-27-2023 MCV (RBC) [Entitic vol] 93.4 fL 80-100 [facility] Monocytes Auto (Bld) [#/Vol] Ordered By: Obie Hylton on 05-27-2023 Monocytes (Bld) [#/Vol] 0.3 10*3/uL 0.0-0.8 [facility] Monocytes/100 WBC Auto (Bld) Ordered By: Obie Hylton on 05-27-2023 Monocytes/100 WBC (Bld) 8.4 % . [facility] Neutrophils Auto (Bld) [#/Vo l]Ordered By: Obie Hylton on 05-27-2023 Neutrophils (Bld) [#/Vol] 2.4 10*3/uL 1.8-7.7 [facility] Neutrophils/100 WBC Auto (Bl d)Ordered By: Obie Hylton on 05-27-2023 Neutrophils/100 WBC (Bld) 61.9 % . [facility] Nitrite Test strip Ql (U)Ord ered By: Obie Hylton on 05-27-2023 Nitrite Ql (U) Negative Negative [facility] No Panel InformationOrdered By: Obie Hylton on 05-27-2023 Estimated GFR (CKD-EPI) 46.333 mL/Min [facility] Creatinine Clearance (Chem N/A [facility] Nucleated erythrocytes [Pres ence] in Blood by Automated countOrdered By: Obie Hylton on 05-27-2023 Nucleated RBC Auto Ql (Bld) 0.2 /100{WBC} 0-0.5 [facility] Platelet mean volume Auto (B ld) [Entitic vol]Ordered By: Obie Hylton on 05-27-2023 Platelet mean volume (Bld) [Entitic vol] 8.8 fL 6.3-10.7 [facility] Platelets Auto (Bld) [#/Vol] Ordered By: Obie Hylton on 05-27-2023 Platelets (Bld) [#/Vol] 193 10*3/uL 150-450 [facility] Potassium [Moles/volume] in Serum or PlasmaOrdered By: Obie Hylton on 05-27-2023 Potassium [Moles/Vol] 4.4 mmol/L 3.5-5.1 [facility] Protein Auto test strip (U) [Mass/Vol]Ordered By: Obie Hylton on 05-27-2023 Protein (U) [Mass/Vol] Negative Negative [facility] Protein [Mass/volume] in Ser um or PlasmaOrdered By: Obie Hylton on 05-27-2023 Protein [Mass/Vol] 6.0 g/dL 6.4-8.9 [facility] RBC Auto (Bld) [#/Vol]Ordere d By: Obie Hylton on 05-27-2023 RBC (Bld) [#/Vol] 3.68 10*6/uL 3.60-5.00 [facility] Serum or plasma albumin/glob ulin mass ratioOrdered By: Obie Hylton on 05-27-2023 Albumin/Globulin [Mass ratio] 1.9 {ratio} [facility] Serum or plasma anion gap de terminationOrdered By: Obie Hylton on 05-27-2023 Anion gap [Moles/Vol] 8.4 mmol/L 6.0-15.0 [facility] Sodium [Moles/volume] in Ser um or PlasmaOrdered By: Obie Hylton on 05-27-2023 Sodium [Moles/Vol] 143 mmol/L 136-145 [facility] Specific gravity Auto test s trip (U) [Rel density]Ordered By: Obie Hylton on 05-27-2023 Specific gravity (U) [Rel density] 1.017 1.001-1.03 0 [facility] Squamous epithelial cells de tection in urine sediment by light microscopyOrdered By: Obie Hylton on 05-27-2023 Epithelial cells.squamous LM Ql (Urine sed) 1-2 [HPF] 0-2 [facility] Urea nitrogen [Mass/volume] in Serum or PlasmaOrdered By: Obie Hylton on 05-27-2023 Urea nitrogen [Mass/Vol] 25 mg/dL 7-25 [facility] Urine bacteria detection by automated methodOrdered By: Obie Hylton on 05-27-2023 Bacteria Auto Ql (U) None seen None Seen [facility] Urine clarity by refractomet ry automatedOrdered By: Obie Hylton on 05-27-2023 Clarity Refractometry automated (U) Cloudy Clear [facility] Urine glucose measurement by automated test strip (mass/volume)Ordered By: Obie Hylton on 05-27-2023 Glucose Auto test strip (U) [Mass/Vol] Normal mg/dL Normal [facility] Urine hemoglobin detection b y automated test stripOrdered By: Obie Hylton on 05-27-2023 Hemoglobin Auto test strip Ql (U) Trace Negative [facility] Urine leukocyte esterase det ection by automated test stripOrdered By: Obie Hylton on 05-27-2023 Leukocyte esterase Auto test strip Ql (U) Negative Negative [facility] Urobilinogen Auto test strip (U) [Mass/Vol]Ordered By: Obie Hylton on 05-27-2023 Urobilinogen (U) [Mass/Vol] Normal mg/dL Normal [facility] WBC Auto (Bld) [#/Vol]Ordere d By: Obie Hylton on 05-27-2023 WBC (Bld) [#/Vol] 3.9 10*3/uL 3.8-11.6 [facility] pH Auto test strip (U)Ordere d By: Obie Hylton on 05-27-2023 pH (U) 5.5 [pH] 5.0-9.0 [facility] Follow-Upon 04-11-2023 Follow-Up [id number] Genny Rios 1945 F Date Provider Department Center 04/11/2023 [id number], XU NWO [facility] No family history on file Level of Service:93812 [place] OFFICE/OUTPATIENT ESTABLISHED LOW MDM 20-29 MIN Normal [facility] Office Visiton 03-28-2023 Follow-up visit [id number] Genny Rios 1945 F Date Provider Department Center 03/28/2023 [id number], XU NWO [facility] No family history on file Level of Service:95274 [place] OFFICE/OUTPATIENT NEW MODERATE MDM 45-59 MINUTES Normal [facility] US RENAL LIMITEDon 3 Simple bilateral agus al cysts with otherwise unremarkable exam [facility] RIS CONSOLIDATED EXAMINATION: ULTRASOUND OF THE KIDNEYS 03/13/2023 10:12 am COMPARISON: None. HISTORY: ORDERING SYSTEM PROVIDED HISTORY: Renal cyst TECHNOLOGIST PROVIDED HISTORY: This procedure can be scheduled via [employer]. Access your [employer] account by visiting [facility]. FINDINGS: The right kidney measures 11.7 cm in length and the left kidney measures 11.3 cm in length. Normal renal cortical echogenicity. No hydronephrosis or nephrolithiasis. Simple right renal cyst 5 cm. Simple left renal cyst 5.2 cm. [facility] RIS CONSOLIDATED Jonny Lopez, DO - 03/13/2023 EXAMINATION: ULTRASOUND OF THE KIDNEYS 03/13/2023 10:12 am COMPARISON: None. HISTORY: ORDERING SYSTEM PROVIDED HISTORY: Renal cyst TECHNOLOGIST PROVIDED HISTORY: This procedure can be scheduled via [employer]. Access your [employer] account by visiting sw[employer]r. FINDINGS: The right kidney measures 11.7 cm in length and the left kidney measures 11.3 cm in length. Normal renal cortical echogenicity. No hydronephrosis or nephrolithiasis. Simple right renal cyst 5 cm. Simple left renal cyst 5.2 cm. IMPRESSION: Simple bilateral renal cysts with otherwise unremarkable exam [facility] Study observation (narrative) [facility] US RENAL LIMITEDOrdered By: Jonny Lopez on 03-13-2023 [facility] Work Phone: Consent for Procedure/Surger yon 03-01-2023 Consent for Procedure/Surgery [id number]#[id number]:[id number] Normal [facility] Ambulatory Visit Summaryon 0 02-28-2023 Ambulatory [...] tablet) fluticasone nasal (fluticasone 0.05 mg/inh Nasal Boyden) levothyroxine (levothyroxine 50 mcg (0.05 mg) Tab) [...] fluticasone nasal (fluticasone 0.05 mg/ inh Nasal Boy[place]) 50 Microgram Nasal Inhalation Every day Unchanged [...] Nocturia Sl (more content not included)... Normal [facility] CBC with Auto Differentialon 11-25-2022 Basophils (Bld) [#/Vol] 0.00 10*3/uL [facility] Basophils/100 WBC (Bld) 0 % 0 - 2 % [facility] Differential Type YES [facility] Eosinophils (Bld) [#/Vol] 0.10 10*3/uL [facility] Eosinophils/100 WBC (Bld) 2 % 0 - 5 % [facility] Erythrocyte distribution width (RBC) [Ratio] 14.0 % 12.1 - 15.2 % [facility] Hematocrit (Bld) [Volume fraction] 35.6 % Low 36 - 46 % [facility] Hemoglobin (Bld) [Mass/Vol] 12.0 g/dL 12.0 - 16.0 g/dL [facility] Interpretation and review of laboratory results Abnormal [facility] Lymphocytes/100 WBC (Bld) 27 % 15 - 40 % [facility] Lymphocytes/100 WBC (Bld) 1.30 % [facility] MCH (RBC) [Entitic mass] 31.0 pg 26 - 34 pg [facility] MCHC (RBC) [Mass/Vol] 33.8 g/dL 31 - 3 7 g/dL [facility] MCV (RBC) [Entitic vol] 91.6 fL 80 - 100 fL [facility] Monocytes/100 WBC (Bld) 9 % High 4 - 8 % [facility] Monocytes/100 WBC (Bld) 0.50 % [facility] Neutrophils/100 WBC (Bld) 62 % 47 - 75 % [facility] Platelets (Bld) [#/Vol] 240 10*3/uL [facility] RBC (Bld) [#/Vol] 3.89 10*6/uL Low 4.0 - 5.2 m/uL [facility] Segmented neutrophils/100 WBC (Bld) 3.10 % [facility] WBC other (Bld) [#/Vol] 5.0 [facility] Comprehensive Metabolic Pane trevor 11-25-2022 Albumin [Mass/Vol] 3.7 g/dL 3.5 - 5.2 g/dL [facility] ALP [Catalytic activity/Vol] 70 U/L 35 - 104 U/L [facility] ALT [Catalytic activity/Vol] 6 U/L 5 - 33 U/L [facility] Anion gap [Moles/Vol] 10 mmol/L 9 - 17 mmol/L [facility] AST [Catalytic activity/Vol] 15 U/L NINF - 32 U/L [facility] Bilirubin [Mass/Vol] 0.3 mg/dL 0.3 - 1 .2 mg/dL [facility] Calcium [Mass/Vol] 9.4 mg/dL 8.6 - 10. 4 mg/dL [facility] Chloride [Moles/Vol] 105 mmol/L 98 - 10 7 mmol/L [facility] CO2 [Moles/Vol] 24 mmol/L 20 - 31 mmol/L [facility] Creatinine [Mass/Vol] 1.12 mg/dL High 0.50 - 0.90 mg/dL [facility] GFR/1.73 sq M.predicted MDRD (S/P/Bld) [Vol rate/Area] 51 mL/min/{1.73_m2} Low - PINF [facility] Comment on above: These results [...] [Mass/Vol] 97 mg/dL 70 - 99 mg/dL [facility] Interpretation and review of laboratory results Abnormal [facility] Potassium [Moles/Vol] 4.1 mmol/L 3.7 - 5.3 mmol/L [facility] Protein [Mass/Vol] 6.7 g/dL 6.4 - 8.3 g/dL [facility] Sodium [Moles/Vol] 139 mmol/L 135 - 144 mmol/L [facility] Urea nitrogen [Mass/Vol] 32 mg/dL High 8 - 23 mg/dL [facility] Urea nitrogen/Creatinine [Mass ratio] 29 mg/mg High 9 - 20 [facility] Microscopic Urinalysison - [facility] Epithelial cells LM.HPF (Urine sed) [#/Area] 0 TO 2 /HPF [facility] RBC LM.HPF (Urine sed) [#/Area] 0 TO 2 [facility] WBC LM.HPF (Urine sed) [#/Area] NONE SEEN 0 /HPF [facility] Urinalysison 11-25-2022 Bilirubin Ql (U) Negative NEGATIVE [facility] Clarity (U) Clear Clear [facility] Color (U) Yellow Yellow [facility] Glucose Test strip (U) [Mass/Vol] Negative NEGATIVE [facility] Hemoglobin Auto test strip Ql (U) TRACE Abnormal NEGATIVE [facility] Interpretation and review of laboratory results Abnormal [facility] Ketones (U) [Mass/Vol] Negative NEGATIVE [facility] Leukocyte esterase Test strip Ql (U) Negative NEGATIVE [facility] Nitrite Ql (U) Negative NEGATIVE [facility] pH (U) 6.5 [pH] 5.0 - 8.0 [facility] Protein (U) [Mass/Vol] TRACE Abnormal NEGATIVE [facility] Specific gravity (U) [Rel density] 1.015 1.005 - 1.030 [facility] Urinalysis Comments [facility] Urobilinogen Qn (U) Normal Normal [facility] XR CHEST (2 VW)on 11-25-2022 No acute cardiopulmonary findings. [facility] CONSOLIDATED EXAM: XR CHEST (2 VW ) INDICATION: Reason for exam:->Recently treated for Pneumonia. COMPARISON: 11/17/2022 TECHNIQUE: Chest radiograph(s) as above FINDINGS: Lines/Tubes: None Lungs: No pneumothorax, pleural effusion, or consolidation. Cardiomediastinal silhouette: Normal in size. Bones/Soft Tissues: No acute osseous abnormality. Right upper quadrant surgical clips. [facility] CON[facility] Bello Zheng MD - 11/25/2022 EXAM: XR CHEST (2 VW) INDICATION: Reason for exam:->Recently treated for Pneumonia. COMPARISON: 11/17/2022 TECHNIQUE: Chest radiograph(s) as above FINDINGS: Lines/Tubes: None Lungs: No pneumothorax, pleural effusion, or consolidation. Cardiomediastinal silhouette: Normal in size. Bones/Soft Tissues: No acute osseous abnormality. Right upper quadrant surgical clips. IMPRESSION: No acute cardiopulmonary findings. [employer] Phone: Radiology Study observation (narrative) [employer] Phone: XR CHEST (2 VW)Ordered By: Dejan Zheng on 11-25-2022 [employer] Phone: XR CHEST (2 VW)on 08-29-2022 FINDINGS/IMPRESSION: 1. Normal sized heart. 2. Clear lungs. [facility] CONSOLID[facility] EXAM: XR CHEST (2 VW ) HISTORY: Reason for exam:->HTN. COMPARISON: Portable chest 03/31/2020. [facility] Ishmael Valentin Jr., MD - 08/29/2022 EXAM: XR CHEST (2 VW) HISTORY: Reason for exam:->HTN. COMPARISON: Portable chest 03/31/2020. IMPRESSION: FINDINGS/IMPRESSION: 1. Normal sized heart. 2. Clear lungs. [employer] Phone: Radiology Study observation (narrative) [employer] Phone: XR CHEST (2 VW)Ordered By: Jo Valentin on 08-29-2022 [employer] Phone: Aspartate aminotransferase [ Enzymatic activity/volume] in Serum or PlasmaOrdered By: Obie Hylton on 08-21-2022 AST [Catalytic activity/Vol] 16 U/L 10-42 [facility] Automated erythrocytes count in urine sediment (number/area)Ordered By: Obie Hylton on 08-21-2022 RBC Auto (Urine sed) [#/Area] 1-2 [HPF] 0-4 [facility] Automated leukocytes count i n urine sediment (number/area)Ordered By: Obie Hylton on 08-21-2022 WBC Auto (Urine sed) [#/Area] 5-9 [HPF] 0-4 [facility] Basophils Auto (Bld) [#/Vol] Ordered By: Obie Hylton on 08-21-2022 Basophils (Bld) [#/Vol] 0.0 10*3/uL 0.0-0.2 [facility] Basophils/100 WBC Auto (Bld) Ordered By: Obie Hylton on 08-21-2022 Basophils/100 WBC (Bld) 0.3 % . [facility] Bilirubin Test strip Ql (U)O rdered By: Obie Hylton on 08-21-2022 Bilirubin Ql (U) Negative Negative [facility] Body fluid albumin measureme nt (mass/volume)Ordered By: Obie Hylton on 08-21-2022 Albumin (Body fld) [Mass/Vol] 3.6 g/dL 3.2-5.5 [facility] Cholesterol [Mass/volume] in Serum or PlasmaOrdered By: Kenneth Givens on 08-21-2022 Cholesterol [Mass/Vol] 120 mg/dL 140-200 [facility] Comment on above: Chol less than 200 m g/dl low riskChol 201-239 mg/dl borderline riskChol 240 mg/dl and greater high risk Cholesterol in LDL Calc [Mas s/Vol]Ordered By: Kenneth Givens on 08-21-2022 Cholesterol in LDL [Mass/Vol] 59 mg/dL 0-100 [facility] Comment on above: LDL ATP III CLASSIFI CATIONLDL less than 100 mg/dL OptimalLDL 100-129 mg/dL Near or above optimalLDL 130-159 mg/dL Borderline highLDL 160-189 mg/dL HighLDL greater than 189 mg/dL Very high Cholesterol in VLDL Calc [Cindy ss/Vol]Ordered By: Kenneth Givens on 08-21-2022 Cholesterol in VLDL [Mass/Vol] 15 mg/dL [facility] Color Auto (U)Ordered By: Cindy candelariaclovis Warner on 08-21-2022 Color (U) Yellow Yellow [facility] Creatinine and Glomerular fi ltration rate.predicted panel (S/P/Bld)Ordered By: Obie Hylton on 08-21-2022 Creatinine [Mass/Vol] 1.19 mg/dL 0.44-1.03 [facility] Eosinophils Auto (Bld) [#/Vo l]Ordered By: Obie Hylton on 08-21-2022 Eosinophils (Bld) [#/Vol] 0.1 10*3/uL 0.0-0.45 [facility] Eosinophils/100 WBC Auto (Bl d)Ordered By: Obie Hylton on 08-21-2022 Eosinophils/100 WBC (Bld) 1.2 % . [facility] Erythrocyte distribution wid th Auto (RBC) [Ratio]Ordered By: Obie Hylton on 08-21-2022 Erythrocyte distribution width (RBC) [Ratio] 14.5 % 11.9-15.3 [facility] Erythrocyte sedimentation ra te by Photometric methodOrdered By: Obie Hylton on 08-21-2022 ESR Photometric method (Bld) [Velocity] 9 mm/hr 0-29 [facility] Estimated glomerular filtrat ion rate (GFR) non- AmericanOrdered By: Obie Hylton on 08-21-2022 GFR/1.73 sq M.predicted among non-blacks MDRD (S/P/Bld) [Vol rate/Area] 44 mL/Min [facility] Globulin Calc (S) [Mass/Vol] Ordered By: Obie Hylton on 08-21-2022 Globulin (S) [Mass/Vol] 2.6 g/dL [facility] Hematocrit Auto (Bld) [Volum e fraction]Ordered By: Obie Hylton on 08-21-2022 Hematocrit (Bld) [Volume fraction] 35.6 % 34.0-46.4 [facility] Hemoglobin [Mass/volume] in BloodOrdered By: Obie Hylton on 08-21-2022 Hemoglobin (Bld) [Mass/Vol] 11.9 g/dL 11.8-15.4 [facility] Ketones Auto test strip (U) [Mass/Vol]Ordered By: Obie Hylton on 08-21-2022 Ketones (U) [Mass/Vol] Negative Negative [facility] Laboratory - Chemistry and C hemistry - challengeOrdered By: Kenneth Givens on 08-21-2022 Magnesium [Mass/Vol] 2.1 mg/dL 1.6-2.6 [facility] Laboratory - UrinalysisOrder ed By: Obie Hylton on 08-21-2022 Hyaline casts LM Ql (Urine sed) 0-8 [LPF] 0-8 [facility] Leukocytes [#/volume] correc pepito for nucleated erythrocytes in Blood by Automated counOrdered By: Obie Hylton on 08-21-2022 WBC corrected for nucl RBC Auto (Bld) [#/Vol] 4.7 10*3/uL 3.8-11.6 [facility] Lymphocytes Auto (Bld) [#/Vo l]Ordered By: Obie Hylton on 08-21-2022 Lymphocytes (Bld) [#/Vol] 1.0 10*3/uL 1.00-4.8 [facility] Lymphocytes/100 WBC Auto (Bl d)Ordered By: Obie Hylton on 08-21-2022 Lymphocytes/100 WBC (Bld) 21.8 % . [facility] MCH Auto (RBC) [Entitic mass ]Ordered By: Obie Hylton on 08-21-2022 MCH (RBC) [Entitic mass] 33.9 pg 24.7-34.3 [facility] MCHC Auto (RBC) [Mass/Vol]Or dered By: Obie Hylton on 08-21-2022 MCHC (RBC) [Mass/Vol] 33.5 g/dL 32.0-35.0 [facility] MCV Auto (RBC) [Entitic vol] Ordered By: Obie Hylton on 08-21-2022 MCV (RBC) [Entitic vol] 101.2 fL 80-100 [facility] Monocytes Auto (Bld) [#/Vol] Ordered By: Obie Hylton on 08-21-2022 Monocytes (Bld) [#/Vol] 0.4 10*3/uL 0.0-0.8 [facility] Monocytes/100 WBC Auto (Bld) Ordered By: Obie Hylton on 08-21-2022 Monocytes/100 WBC (Bld) 8.2 % . [facility] Neutrophils Auto (Bld) [#/Vo l]Ordered By: Obie Hylton on 08-21-2022 Neutrophils (Bld) [#/Vol] 3.2 10*3/uL 1.8-7.7 [facility] Neutrophils/100 WBC Auto (Bl d)Ordered By: Obie Hylton on 08-21-2022 Neutrophils/100 WBC (Bld) 68.5 % . [facility] Nitrite Test strip Ql (U)Ord ered By: Obie Hylton on 08-21-2022 Nitrite Ql (U) Negative Negative [facility] No Panel InformationOrdered By: Kenneth Givens on 08-21-2022 25-Hydroxy Vitamin D Total 43.9 ng/mL 30-100 [facility] Comment on above: VITAMIN D STATUS 25( [place])VITAMIN D RANGE (ng/mL) Deficient <20 Insufficient 20 to <30Sufficient 30 to 100Reference: Jennifer MF,Babs NC, Blank GALLARDO, et al. Evaluation,treatment, and prevention of vitamin D deficiency; an Endocrine Society clinical practice guideline. JCEM. 2010; 96(7):1911-30. No Panel InformationOrdered By: Obie Hylton on 08-21-2022 Estimated GFR () 53 mL/Min [facility] Comment on above: GFR estimated refere nce range: According to KDOQI guidelines, <60 ml/min/1.73m2 is sufficient to diagnose a patient with chronic kidney disease. Pharmacy Creatinine Clearance (Chem N/A [facility] Nucleated erythrocytes [Pres ence] in Blood by Automated countOrdered By: Obie Hylton on 08-21-2022 Nucleated RBC Auto Ql (Bld) 0.2 /100{WBC} 0-0.5 [facility] Platelet mean volume Auto (B ld) [Entitic vol]Ordered By: Obie Hylton on 08-21-2022 Platelet mean volume (Bld) [Entitic vol] 9.0 fL 6.3-10.7 [facility] Platelets Auto (Bld) [#/Vol] Ordered By: Obie Hylton on 08-21-2022 Platelets (Bld) [#/Vol] 188 10*3/uL 150-450 [facility] Protein Auto test strip (U) [Mass/Vol]Ordered By: Obie Hylton on 08-21-2022 Protein (U) [Mass/Vol] Negative Negative [facility] Protein [Mass/volume] in Ser um or PlasmaOrdered By: Obie Hylton on 08-21-2022 Protein [Mass/Vol] 6.2 g/dL 6.1-7.9 [facility] RBC Auto (Bld) [#/Vol]Ordere d By: Obie Hylton on 08-21-2022 RBC (Bld) [#/Vol] 3.52 10*6/uL 3.60-5.00 [facility] Serum or plasma alanine negro otransferase measurement without P-5'-P (enzymatic activiOrdered By: Obie Hylton on 08-21-2022 ALT No additional P-5'-P [Catalytic activity/Vol] 12 U/L 10-60 [facility] Serum or plasma albumin/glob ulin mass ratioOrdered By: Obie Hylton on 08-21-2022 Albumin/Globulin [Mass ratio] 1.4 {ratio} [facility] Serum or plasma alkaline glen sphatase measurement (enzymatic activity/volume)Ordered By: Obie Hylton on 08-21-2022 ALP [Catalytic activity/Vol] 58 U/L 32-92 [facility] Serum or plasma anion gap de terminationOrdered By: Obie Hylton on 08-21-2022 Anion gap [Moles/Vol] 13.5 mmol/L 6.0-15.0 [facility] Serum or plasma calcium olivia urement (mass/volume)Ordered By: Obie Hylton on 08-21-2022 Calcium [Mass/Vol] 9.1 mg/dL 8.2-10.2 [facility] Serum or plasma chloride wilner surement (moles/volume)Ordered By: Obie Hylton on 08-21-2022 Chloride [Moles/Vol] 105 mmol/L 95-114 [facility] Serum or plasma glucose olivia urement (mass/volume)Ordered By: Obie Hylton on 08-21-2022 Glucose [Mass/Vol] 91 mg/dL 70-100 [facility] Comment on above: ADA recommended refe rence rangeRandom Glucose Reference Range is dependent on time and content of last meal. Glucose of more than 200 mg/dL in a nonstressed, ambulatory subject supports the diagnosis of Diabetes Mellitus. Serum or plasma high density lipoprotein (HDL) cholesterol measurementOrdered By: Kenneth Givens on 08-21-2022 Cholesterol in HDL [Mass/Vol] 45 mg/dL 35-85 [facility] Comment on above: HDL CHOL ATP-III CLA SSIFICATION Cardiovascular RiskHDL > or equal to 60 mg/dL LOWHDL < 40 mg/dL HIGH Serum or plasma potassium me asurement (moles/volume)Ordered By: Obie Hylton on 08-21-2022 Potassium [Moles/Vol] 4.1 mmol/L 3.5-5.1 [facility] Serum or plasma sodium measu rement (moles/volume)Ordered By: Obie Hylton on 08-21-2022 Sodium [Moles/Vol] 138 mmol/L 136-146 [facility] Serum or plasma total biliru bin measurement (mass/volume)Ordered By: Obie Hylton on 08-21-2022 Bilirubin [Mass/Vol] 0.3 mg/dL 0.3-1.2 [facility] Serum or plasma total carbon dioxide measurement (moles/volume)Ordered By: Obie Hylton on 08-21-2022 CO2 [Moles/Vol] 23.6 mmol/L 22.0-30.0 [facility] Serum or plasma total choles terol/high density lipoprotein (HDL) cholesterol mass ratOrdered By: Kenneth Givens on 08-21-2022 Cholesterol.total/Cho lesterol in HDL [Mass ratio] 2.7 {ratio} <5.0 [facility] Serum or plasma urea nitroge n measurement (mass/volume)Ordered By: Obie Hylton on 08-21-2022 Urea nitrogen [Mass/Vol] 25 mg/dL 9-23 [facility] Specific gravity Auto test s trip (U) [Rel density]Ordered By: Obie Hylton on 08-21-2022 Specific gravity (U) [Rel density] 1.014 1.001-1.03 0 [facility] Squamous epithelial cells de tection in urine sediment by light microscopyOrdered By: Obie Hyltno on 08-21-2022 Epithelial cells.squamous LM Ql (Urine sed) 5-9 [HPF] 0-2 [facility] TSH DL <= 0.005 mIU/L QnOrde red By: Kenneth Givens on 08-21-2022 TSH Qn 1.14 m[IU]/L 0.45-5.33 [facility] Triglyceride [Mass/volume] i n Serum or PlasmaOrdered By: Kenneth Givens on 08-21-2022 Triglyceride [Mass/Vol] 78 mg/dL 35-149 [facility] Comment on above: TRIG ATP III CLASSIF ICATIONTRIG less than 150 mg/dL NormalTRIG 150-199 mg/dL Borderline highTRIG 200-500 mg/dL High TRIG greater than 500 mg/dL Very highStandard traceable to the Center for Disease Conrtrol and Prevention (CDC) test method. Urine bacteria detection by automated methodOrdered By: Obie Hylton on 08-21-2022 Bacteria Auto Ql (U) None seen None Seen [facility] Urine clarity by refractomet ry automatedOrdered By: Obie Hylton on 08-21-2022 Clarity Refractometry automated (U) Clear Clear [facility] Urine glucose measurement by automated test strip (mass/volume)Ordered By: Obie Hylton on 08-21-2022 Glucose Auto test strip (U) [Mass/Vol] Normal mg/dL Normal [facility] Urine hemoglobin detection b y automated test stripOrdered By: Obie Hylton on 08-21-2022 Hemoglobin Auto test strip Ql (U) Trace Negative [facility] Urine leukocyte esterase det ection by automated test stripOrdered By: Obie Hylton on 08-21-2022 Leukocyte esterase Auto test strip Ql (U) 1+ Negative [facility] Urobilinogen Auto test strip (U) [Mass/Vol]Ordered By: Obie Hylton on 08-21-2022 Urobilinogen (U) [Mass/Vol] Normal mg/dL Normal [facility] WBC Auto (Bld) [#/Vol]Ordere d By: Obie Hylton on 08-21-2022 WBC (Bld) [#/Vol] 4.7 10*3/uL 3.8-11.6 [facility] pH Auto test strip (U)Ordere d By: Obie Hylton on 08-21-2022 pH (U) 7.0 [pH] 5.0-9.0 [facility] CHEMISTRYOrdered By: SYSTEM SYSTEM on 07-10-2022 [...] 4.4 mmol/L Normal 3.5 - 5.3 mmol/L [facility] Remisol Sodium [Moles/Vol] 140 mmol/L Normal 135 - 145 mmol/L [facility] Remisol Urea nitrogen [Mass/Vol] 37 mg/dL High 5 - 21 mg/dL [facility] Remisol Urea nitrogen/Creatinine [Mass ratio] 28 mg/mg High 10 - 20 [facility] Remisol Albumin [Mass/volume] in Ser um or PlasmaOrdered By: Obie Hylton on 02-22-2022 Albumin [Mass/Vol] 3.5 g/dL 3.2-5.5 [facility] Automated erythrocytes count in urine sediment (number/area)Ordered By: Obie Hylton on 02-22-2022 RBC Auto (Urine sed) [#/Area] 3-4 [HPF] 0-4 [facility] Automated leukocytes count i n urine sediment (number/area)Ordered By: Obie Hylton on 02-22-2022 WBC Auto (Urine sed) [#/Area] 1-2 [HPF] 0-4 [facility] Basophils Auto (Bld) [#/Vol] Ordered By: Obie Hylton on 02-22-2022 Basophils (Bld) [#/Vol] 0.0 10*3/uL 0.0-0.2 [facility] Basophils/100 WBC Auto (Bld) Ordered By: Obie Hylton on 02-22-2022 Basophils/100 WBC (Bld) 0.2 % . [facility] Bilirubin Test strip Ql (U)O rdered By: Obie Hylton on 02-22-2022 Bilirubin Ql (U) Negative Negative [facility] Blood hemoglobin measurement (mass/volume)Ordered By: Obie Hylton on 02-22-2022 Hemoglobin (Bld) [Mass/Vol] 12.3 g/dL 11.8-15.4 [facility] Blood leukocytes automated c ount (number/volume)Ordered By: Obie Hylton on 02-22-2022 WBC (Bld) [#/Vol] 5.1 10*3/uL 4.5-11.0 [facility] Color Auto (U)Ordered By: Cindy Hylton on 02-22-2022 Color (U) Yellow Yellow [facility] Creatinine and Glomerular fi ltration rate.predicted panel (S/P/Bld)Ordered By: Obie Hylton on 02-22-2022 Creatinine [Mass/Vol] 1.16 mg/dL 0.44-1.03 [facility] Eosinophils Auto (Bld) [#/Vo l]Ordered By: Obie Hylton on 02-22-2022 Eosinophils (Bld) [#/Vol] 0.1 10*3/uL 0.0-0.45 [facility] Eosinophils/100 WBC Auto (Bl d)Ordered By: Obie Hylton on 02-22-2022 Eosinophils/100 WBC (Bld) 1.4 % . [facility] Erythrocyte distribution wid th Auto (RBC) [Ratio]Ordered By: Obie Hylton on 02-22-2022 Erythrocyte distribution width (RBC) [Ratio] 15.3 % 11.9-15.3 [facility] Estimated glomerular filtrat ion rate (GFR) non- AmericanOrdered By: Obie Hylton on 02-22-2022 GFR/1.73 sq M.predicted among non-blacks MDRD (S/P/Bld) [Vol rate/Area] 45 mL/Min [facility] Globulin Calc (S) [Mass/Vol] Ordered By: Obie Hylton on 02-22-2022 Globulin (S) [Mass/Vol] 2.5 g/dL [facility] Hematocrit Auto (Bld) [Volum e fraction]Ordered By: Obie Hylton on 02-22-2022 Hematocrit (Bld) [Volume fraction] 36.6 % 34.0-46.4 [facility] Ketones Auto test strip (U) [Mass/Vol]Ordered By: Obie Hylton on 02-22-2022 Ketones (U) [Mass/Vol] Negative Negative [facility] Laboratory - Hematology and Cell countsOrdered By: Obie Hylton on 02-22-2022 Nucleated RBC/100 WBC (Bld) [Ratio] 0.0 % 0-0.5 [facility] - UrinalysisOrder ed By: Oibe Hylton on 02-22-2022 Hyaline casts LM Ql (Urine sed) None seen [LPF] 0-8 [facility] Lymphocytes Auto (Bld) [#/Vo l]Ordered By: Obie Hylton on 02-22-2022 Lymphocytes (Bld) [#/Vol] 1.1 10*3/uL 1.00-4.8 [facility] Lymphocytes/100 WBC Auto (Bl d)Ordered By: Obie Hylton on 02-22-2022 Lymphocytes/100 WBC (Bld) 22.2 % . [facility] MCH Auto (RBC) [Entitic mass ]Ordered By: Obie Hylton on 02-22-2022 MCH (RBC) [Entitic mass] 33.0 pg 24.7-34.3 [facility] MCHC Auto (RBC) [Mass/Vol]Or dered By: Obie Hylton on 02-22-2022 MCHC (RBC) [Mass/Vol] 33.5 g/dL 32.0-35.0 [facility] MCV Auto (RBC) [Entitic vol] Ordered By: Obie Hylton on 02-22-2022 MCV (RBC) [Entitic vol] 98.5 fL 80-100 [facility] Monocytes Auto (Bld) [#/Vol] Ordered By: Obie Hylton on 02-22-2022 Monocytes (Bld) [#/Vol] 0.5 10*3/uL 0.0-0.8 [facility] Monocytes/100 WBC Auto (Bld) Ordered By: Obie Hylton on 02-22-2022 Monocytes/100 WBC (Bld) 9.0 % . [facility] Neutrophils Auto (Bld) [#/Vo l]Ordered By: Obie Hylton on 02-22-2022 Neutrophils (Bld) [#/Vol] 3.5 10*3/uL 1.8-7.7 [facility] Neutrophils/100 WBC Auto (Bl d)Ordered By: Obie Hylton on 02-22-2022 Neutrophils/100 WBC (Bld) 67.2 % . [facility] Nitrite Test strip Ql (U)Ord ered By: Obie Hylton on 02-22-2022 Nitrite Ql (U) Negative Negative [facility] No Panel InformationOrdered By: Obie Hylton on 08-25-2022 Estimated GFR () 55 mL/Min [facility] Comment on above: GFR estimated refere nce range: According to KDOQI guidelines, <60 ml/min/1.73m2 is sufficient to diagnose a patient with chronic kidney disease. Pharmacy Creatinine Clearance (Chem N/A [facility] Platelet mean volume Auto (B ld) [Entitic vol]Ordered By: Obie Hylton on 02-22-2022 Platelet mean volume (Bld) [Entitic vol] 8.7 fL 6.3-10.7 [facility] Platelets Auto (Bld) [#/Vol] Ordered By: Obei Hylton on 02-22-2022 Platelets (Bld) [#/Vol] 182 10*3/uL 150-450 [facility] Protein Auto test strip (U) [Mass/Vol]Ordered By: Obie Hylton on 02-22-2022 Protein (U) [Mass/Vol] Negative Negative [facility] Protein [Mass/volume] in Ser um or PlasmaOrdered By: Obie Hylton on 02-22-2022 Protein [Mass/Vol] 6.0 g/dL 6.1-7.9 [facility] RBC Auto (Bld) [#/Vol]Ordere d By: Obie Hylton on 02-22-2022 RBC (Bld) [#/Vol] 3.72 10*6/uL 3.60-5.00 [facility] Serum or plasma alanine negro otransferase measurement without P-5'-P (enzymatic activiOrdered By: Obie Hylton on 02-22-2022 ALT No additional P-5'-P [Catalytic activity/Vol] 14 U/L 10-60 [facility] Serum or plasma albumin/glob ulin mass ratioOrdered By: Obie Hylton on 02-22-2022 Albumin/Globulin [Mass ratio] 1.4 {ratio} [facility] Serum or plasma alkaline glen sphatase measurement (enzymatic activity/volume)Ordered By: Obie Hylton on 02-22-2022 ALP [Catalytic activity/Vol] 54 U/L 32-92 [facility] Serum or plasma aspartate am inotransferase measurement (enzymatic activity/volume)Ordered By: Obie Hylton on 02-22-2022 AST [Catalytic activity/Vol] 17 U/L 10-42 [facility] Serum or plasma calcium olivia urement (mass/volume)Ordered By: Obie Hylton on 02-22-2022 Calcium [Mass/Vol] 9.0 mg/dL 8.2-10.2 [facility] Serum or plasma chloride wilner surement (moles/volume)Ordered By: Obie Hylton on 02-22-2022 Chloride [Moles/Vol] 107 mmol/L 95-114 [facility] Serum or plasma glucose olivia urement (mass/volume)Ordered By: Obie Hylton on 02-22-2022 Glucose [Mass/Vol] 90 mg/dL 70-100 [facility] Comment on above: ADA recommended refe [...] on 02-22-2022 Potassium [Moles/Vol] 4.2 mmol/L 3.5-5.1 [facility] Serum or plasma sodium measu rement (moles/volume)Ordered By: Obie Hylton on 02-22-2022 Sodium [Moles/Vol] 139 mmol/L 136-146 [facility] Serum or plasma total biliru bin measurement (mass/volume)Ordered By: Obie Hylton on 02-22-2022 Bilirubin [Mass/Vol] 0.5 mg/dL 0.3-1.2 [facility] Serum or plasma total carbon dioxide measurement (moles/volume)Ordered By: Obie Hylton on 02-22-2022 CO2 [Moles/Vol] 24.9 mmol/L 22.0-30.0 [facility] Serum or plasma urea nitroge n measurement (mass/volume)Ordered By: Obie Hylton on 02-22-2022 Urea nitrogen [Mass/Vol] 25 mg/dL 03-23 [facility] Specific gravity Auto test s trip (U) [Rel density]Ordered By: Obie Hylton on 02-22-2022 Specific gravity (U) [Rel density] 1.015 1.001-1.03 0 [facility] Squamous epithelial cells de tection in urine sediment by light microscopyOrdered By: Obie Hylton on 02-22-2022 Epithelial cells.squamous LM Ql (Urine sed) 0-1 [HPF] 0-2 [facility] Urine bacteria detection by automated methodOrdered By: Obie Hylton on 02-22-2022 Bacteria Auto Ql (U) None seen None Seen [facility] Urine clarity by refractomet ry automatedOrdered By: Obie Hylton on 02-22-2022 Clarity Refractometry automated (U) Clear Clear [facility] Urine glucose measurement by automated test strip (mass/volume)Ordered By: Obie Hylton on 02-22-2022 Glucose Auto test strip (U) [Mass/Vol] Normal mg/dL Normal [facility] Urine hemoglobin detection b y automated test stripOrdered By: Obie Hylton on 02-22-2022 Hemoglobin Auto test strip Ql (U) 1+ Negative [facility] Urine leukocyte esterase det ection by automated test stripOrdered By: Obie Hylton on 02-22-2022 Leukocyte esterase Auto test strip Ql (U) Negative Negative [facility] Urobilinogen Auto test strip (U) [Mass/Vol]Ordered By: Obie Hylton on 02-22-2022 Urobilinogen (U) [Mass/Vol] Normal mg/dL Normal [facility] pH Auto test strip (U)Ordere d By: Obie Hylton on 02-22-2022 pH (U) 6.0 [pH] 5.0-9.0 [facility] ANA WU DIGITAL SCREEN BILA TERALon 02-01-2022 BI-RADS 1 - Negative, no evidence of malignancy. Normal interval followup in 12 months. OVERALL ASSESSMENT- NEGATIVE A letter of notification will be sent to the patient regarding the results. [facility] HISTORY: Screening. Family history of breast carcinoma. TECHNIQUE: Bilateral digital screening mammogram with CAD. 2-D and 3-D tomography. FINDINGS: Two views of each breast show scattered areas of fibroglandular density. No change from prior studies, most recent 01/20/2021. Suspicious calcifications: None. Suspicious mass: None. (If skin markers were applied, circles represent skin lesions and linear markers represent scars.) [facility] WU DIGITAL SCREEN BILA TERALOrdered By: Ishmael Valentin on 02-01-2022 [employer] Phone: [facility] WU DIGITAL SCREEN BILA TERALon 01-31-2022 Radiology Study observation (narrative) [employer] Phone: XR SHOULDER RIGHT (MIN 2 VIE WS)on 12-02-2021 FINDINGS/IMPRESSION: 1. No significant change since 08/10/2021. 2. Mild AC joint osteoarthrosis remains, with small marginal osteophytes. 3. Osseous ridging from chronic rotator cuff tendinopathy and small reactive subcortical cysts or surgical drill tracks remain in the greater tuberosity of the humerus. 4. No fracture, malalignment, or other acute bony abnormality is seen. [facility] CLINICAL HISTORY: Hi story of right rotator cuff repair surgery (Z98.890). RIGHT SHOULDER 3 VIEWS: COMPARISON: 08/10/2021. [facility] Norm Mcdonnell MD [...] or other acute bony abnormality is seen. [employer] Phone: XR SHOULDER RIGHT (MIN 2 VIE WS)Ordered By: Norm Mcdonnell on 12-02-2021 [employer] Phone: XR SHOULDER RIGHT (MIN 2 VIE WS)on 11-30-2021 Radiology Study observation (narrative) [facility] [employer] Work Phone: Microscopic Urinalysison - [facility] Bacteria, UA TRACE Abnormal None [facility] Epithelial Cells UA 0 TO 2 [facility] Interpretation and review of laboratory results Abnormal [facility] RBC, UA 0 TO 2 [facility] WBC, UA 0 TO 2 [facility] Urinalysis with Reflex to Cu ltureon 10-26-2021 Bilirubin Urine Negative NEGATIVE [facility] Color, UA Yellow Yellow [facility] Glucose, Ur Negative NEGATIVE [facility] Interpretation and review of laboratory results Abnormal [facility] Ketones Ql (U) Negative NEGATIVE [facility] Leukocyte esterase Test strip Ql (U) Negative NEGATIVE [facility] Nitrite, Urine Negative NEGATIVE [facility] th pH, UA 5.5 [facility] Protein, UA Negative NEGATIVE [facility] Specific [place], UA 1.025 [facility] Turbidity UA Clear Clear [facility] Urine Hgb 2+ Abnormal NEGATIVE [facility] Urobilinogen, Urine Normal Normal [facility] Microscopic Urinalysison - [facility] Bacteria, UA 1+ Abnormal None [facility] Epithelial Cells UA 2 TO 5 /HPF [facility] Interpretation and review of laboratory results Abnormal [facility] RBC, UA 2 TO 5 [facility] WBC, UA 20 TO 50 0 /HPF [facility] Yeast, UA OCCASIONAL Abnormal None [facility] Urinalysison 10-14-2021 Bilirubin Urine Negative NEGATIVE [facility] Color, UA Yellow Yellow [facility] Glucose, Ur Negative NEGATIVE [facility] Interpretation and review of laboratory results Abnormal [facility] Ketones Ql (U) Negative NEGATIVE [facility] Leukocyte esterase Test strip Ql (U) 2+ Abnormal NEGATIVE [facility] Nitrite, Urine Negative NEGATIVE [facility] th pH, UA 6.0 [facility] Protein, UA TRACE Abnormal NEGATIVE [facility] Specific [place], UA 1.020 [facility] Turbidity UA Hazy Abnormal Clear [facility] Urinalysis Comments [facility] Urine Hgb 2+ Abnormal NEGATIVE [facility] Urobilinogen, Urine Normal Normal [facility] XR SHOULDER RIGHT (MIN 2 VIE WS)on 08-10-2021 Mild degenerative changes. No acute process. [facility] RIS CONSOLIDATED HISTORY: Pain status post right shoulder arthroscopy TECHNIQUE: 3 views of the right shoulder were obtained COMPARISON: 04/27/2021 FINDINGS: There are mild degenerative changes of acromioclavicular joint. No fracture, dislocation or acute osseous abnormality seen. [facility] John Jauregui MD - 08/10/2021 HISTORY: Pain status post right shoulder arthroscopy TECHNIQUE: 3 views of the right shoulder were obtained COMPARISON: 04/27/2021 FINDINGS: There are mild degenerative changes of acromioclavicular joint. No fracture, dislocation or acute osseous abnormality seen. IMPRESSION: Mild degenerative changes. No acute process. [employer] Phone: Radiology Study observation (narrative) [employer] Phone: XR SHOULDER RIGHT (MIN 2 VIE WS)Ordered By: John Jauregui on 08-10-2021 [employer] Phone: MRI Shoulder w/o Righton MRI Shoulder [...] by Grayson Coronado on 07/12/2021 1110 Normal [facility] [employer] XR SHOULDER RIGHT (MIN 2 VIE WS)Ordered By: Christian Meyer on 04-27-2021 Degenerative changes not unusual for age at the acromioclavicular joint. [employer] Phone: EXAM: XR SHOULDER RI GHT (MIN 2 VIEWS) HISTORY: M25.511. 75-year-old female right shoulder pain. COMPARISON: None. TECHNIQUE: 3 views right shoulder, 4 images. FINDINGS: Moderate degenerative change acromioclavicular joint. Minimal narrowing glenohumeral joint. Negative for calcific bursitis. [employer] Phone: Magdiel, Mhpn Incoming R adiant Results From [employer]Robin - 04/27/2021 12:21 PM EDT EXAM: XR SHOULDER RIGHT (MIN 2 VIEWS) HISTORY: M25.511. 75-year-old female right shoulder pain. COMPARISON: None. TECHNIQUE: 3 views right shoulder, 4 images. FINDINGS: Moderate degenerative change acromioclavicular joint. Minimal narrowing glenohumeral joint. Negative for calcific bursitis. IMPRESSION: Degenerative changes not unusual for age at the acromioclavicular joint. [employer] Phone: [employer] Phone: CBCOrdered By: Roni Dahl on 01-09-2021 Hematocrit (Bld) [Volume fraction] 33.2 % Low 36 - 46 % [employer] Phone: Hemoglobin.gastrointe stinal spec 1 Ql (Stl) 11.5 g/dL Low 12.0 - 16.0 g/dL [employer] Phone: Interpretation and review of laboratory results Abnormal [employer] Phone: MCH (RBC) [Entitic mass] 31.6 pg 26 - 34 pg [employer] Phone: MCHC (RBC) [Mass/Vol] 34.7 g/dL 31 - 3 7 g/dL [employer] Phone: MCV (RBC) [Entitic vol] 91.2 fL 80 - 100 fL [employer] Phone: NRBC Automated NOT REPORTED per 100 WBC [employer] Phone: Platelet distribution width (Bld) [Ratio] 15.6 % High 12.1 - 15.2 % [employer] Phone: Platelet mean volume (Bld) [Entitic vol] NOT REPORTED 6.0 - 12.0 fL [employer] Phone: Platelets (Bld) [#/Vol] 223 10*3/uL [employer] Phone: RBC (Bld) [#/Vol] 3.64 10*6/uL Low 4.0 - 5.2 m/uL [employer] Phone: WBC (Bld) [#/Vol] 4.1 10*3/uL [employer] Phone: [employer] Phone: CBCOrdered By: Roni Dahl on 12-09-2020 Hematocrit (Bld) [Volume fraction] 34.2 % Low 36 - 46 % [employer] Phone: Hemoglobin.gastrointe stinal spec 1 Ql (Stl) 11.6 g/dL Low 12.0 - 16.0 g/dL [employer] Phone: Interpretation and review of laboratory results Abnormal [employer] Phone: MCH (RBC) [Entitic mass] 30.6 pg 26 - 34 pg [employer] Work Phone: MCHC (RBC) [Mass/Vol] 33.8 g/dL 31 - 3 7 g/dL [employer] Phone: MCV (RBC) [Entitic vol] 90.7 fL 80 - 100 fL [employer] Work Phone: NRBC Automated NOT REPORTED per 100 WBC [employer] Phone: Platelet distribution width (Bld) [Ratio] 14.1 % 12.1 - 15.2 % [employer] Phone: Platelet mean volume (Bld) [Entitic vol] NOT REPORTED 6.0 - 12.0 fL [employer] Phone: Platelets (Bld) [#/Vol] 365 10*3/uL [employer] Work Phone: RBC (Bld) [#/Vol] 3.78 10*6/uL Low 4.0 - 5.2 m/uL [employer] Phone: WBC (Bld) [#/Vol] 6.3 10*3/uL [employer] Phone: [employer] Work Phone: CBC Auto DifferentialOrdered By: Darryl Sandoval on 11-27-2020 [employer] # 0.16 [employer] [facility] Work Phone: Absolute Immature Granulocyte 0.35 High [employer] Work Phone: Absolute Lymph # 1.23 [employer] [facility] Work Phone: Absolute [place] # 0.95 [employer] [facility] Work Phone: Basophils (Bld) [#/Vol] 10*3/uL [employer] Work Phone: Basophils/100 WBC (Bld) 0 % 0 - 2 % [employer] Phone: Differential Type NOT REPORTED [employer] Phone: Eosinophils/100 WBC (Bld) 2 % 1 - 4 % [employer] Phone: Hematocrit (Bld) [Volume fraction] 34.3 % Low 36.3 - 47.1 % [employer] Phone: Hemoglobin.gastrointe stinal spec 1 Ql (Stl) 11.0 g/dL Low 11.9 - 15.1 g/dL [employer] Phone: Immature granulocytes/100 WBC (Bld) 5 % High 0 [employer] Phone: Interpretation and review of laboratory results Abnormal [employer] Phone: Lymphocytes/100 WBC (Bld) 16 % Low 24 - 43 % [employer] Phone: MCH (RBC) [Entitic mass] 30.5 pg 25.2 - 33.5 pg [employer] Phone: MCHC (RBC) [Mass/Vol] 32.1 g/dL 28.4 - 34.8 g/dL [employer] Phone: MCV (RBC) [Entitic vol] 95.0 fL 82.6 - 102.9 fL [employer] Phone: Monocytes/100 WBC (Bld) 12 % 3 - 12 % [employer] Phone: NRBC Automated 0.0 0.0 per 100 WBC [employer] Phone: Platelet distribution width (Bld) [Ratio] 13.3 % 11.8 - 14.4 % [employer] Phone: Platelet Estimate NOT REPORTED [employer] Phone: Platelet mean volume (Bld) [Entitic vol] 9.7 fL 8.1 - 13.5 fL [employer] Phone: Platelets (Bld) [#/Vol] 242 10*3/uL [employer] Phone: RBC (Bld) [#/Vol] 3.61 10*6/uL Low 3.95 - 5.11 m/uL [employer] Phone: RBC (Bld) [#/Vol] NOT REPORTED [employer] Phone: Segmented neutrophils/100 WBC (Bld) 65 % 36 - 65 % [employer] Phone: [employer]s [employer] Work Phone: WBC (Bld) [#/Vol] 7.8 10*3/uL [employer] Phone: WBC (Bld) [#/Vol] NOT REPORTED [employer] Phone: [employer] Phone: COVID-19, RapidOrdered By: Vazquez Sandoval on 11-27-2020 SARS-CoV-2 (COVID-19) RNA JUAQUIN+probe Ql (Unsp spec) Not detected Not Detected [employer] Phone: Comment on above: Rapid NAAT: The [...] management decisions. Fact sheet for Healthcare Providers: https://www.fda.gov/media/009256/download Fact sheet for Patients: https://www.fda.gov/media/089292/download Methodology: Isothermal Nucleic Acid Amplification Specimen Description .NASOPHARYNGEAL SWAB [employer] Phone: [employer] Phone: Comprehensive Metabolic Pane lOrdered By: Darryl Sandoval on 11-27-2020 Albumin [Mass/Vol] 3 g/dL Low 3.5 - 5.2 g/dL [employer] Phone: Albumin/Globulin [Mass ratio] 0.8 {ratio} Low [employer] Phone: ALP (Bld) [Catalytic activity/Vol] 154 U/L High 35 - 104 U/L [employer] Phone: ALT [Catalytic activity/Vol] 45 U/L High 5 - 33 U/L [employer] Phone: Anion gap [Moles/Vol] 11 mmol/L 9 - 17 mmol/L [employer] Phone: AST [Catalytic activity/Vol] 44 U/L High <32 [employer] Phone: Bilirubin [Mass/Vol] 0.35 mg/dL 0.3 - 1 .2 mg/dL [employer] Phone: Calcium [Mass/Vol] 9.4 mg/dL 8.6 - 10. 4 mg/dL [employer] Phone: Chloride [Moles/Vol] 103 mmol/L 98 - 10 7 mmol/L [employer] Phone: CO2 [Moles/Vol] 21 mmol/L 20 - 31 mmol/L [employer] Phone: Creatinine [Mass/Vol] 1 mg/dL High 0.50 - 0.90 mg/dL [employer] Phone: Free PSA/Total PSA [Mass fraction] 7.0 g/dL 6.4 - 8.3 g/dL [employer] Phone: GFR >60 >60 mL/min [employer] Phone: GFR Non- 54 mL/min Low >60 [employer] Phone: Glucose [Mass/Vol] 87 mg/dL 70 - 99 mg/dL [employer] Phone: Interpretation and review of laboratory results Abnormal [employer] Phone: Potassium [Moles/Vol] 4.1 mmol/L 3.7 - 5.3 mmol/L [employer] Phone: Sodium [Moles/Vol] 135 mmol/L 135 - 144 mmol/L [employer] Phone: Urea nitrogen (BldV) [Mass/Vol] 16 mg/dL 8 - 23 mg/dL [employer] Phone: Urea nitrogen/Creatinine (Bld) [Mass ratio] 16 [employer] Phone: [employer] Phone: Laboratory - Chemistry and C hemistry - challengeOrdered By: Darryl Sandoval on 11-27-2020 GFR/1.73 sq M.predicted MDRD (S/P/Bld) [Vol rate/Area] [employer] Phone: Comment on above: Average GFR for 70 o r more years old: 75 mL/min/1.73sq m Chronic Kidney Disease: <60 mL/min/1.73sq m Kidney failure: <15 mL/min/1.73sq m eGFR calculated using average adult body mass. Additional eGFR calculator available at: http://www.[employer]/multiple_crcl_2012.htm Stage 1: Some kidney damage normal GFR Stage 2: Mild kidney damage GFR 60-89 Stage 3: Moderate kidney damage GFR 30-59 Stage 4: Severe kidney damage GFR 15-29 Stage 5: Severe kidney damage GFR <15 ESRD - chronic treatment by dialysis or transplant LipaseOrdered By: Darryl farias on 11-27-2020 Lipase [Catalytic activity/Vol] 24 U/L 13 - 60 U/L [facility] Work Phone: [employer] Work Phone: MagnesiumOrdered By: Darryl Sandoval on 11-27-2020 Magnesium [Mass/Vol] 2.3 mg/dL 1.6 - 2 .6 mg/dL [facility] Work Phone: [facility] Work Phone: Urinalysis with MicroscopicO rdered By: Darryl Sandoval on 11-27-2020 - [employer] Work Phone: Amorphous, UA NOT REPORTED None [facility] [employer] Work Phone: Bacteria, UA TRACE Abnormal None [facility] Work Phone: Bilirubin Urine Negative NEGATIVE [facility] [employer] Work Phone: Casts UA NOT REPORTED /LPF [facility] Work Phone: Color, UA YELLOW YELLOW [facility] Work Phone: Crystals, UA NOT REPORTED None /HPF [employer] Work Phone: Epithelial Cells UA 2 TO 5 [facility] Work Phone: Glucose, Ur Negative NEGATIVE [facility] Work Phone: Interpretation and review of laboratory results Abnormal [facility] Work Phone: Ketones Ql (U) Negative NEGATIVE [facility] [employer] Work Phone: Leukocyte esterase Test strip Ql (U) Negative NEGATIVE [facility] Work Phone: Mucus, UA TRACE Abnormal None [facility] Work Phone: Nitrite, Urine Negative NEGATIVE [facility] [employer] Work Phone: Other Observations UA NOT REPORTED NOT REQ. [facility] [employer] Work Phone: pH, UA 6.0 [facility] Work Phone: Protein, UA Negative NEGATIVE [facility] Work Phone: RBC, UA 2 TO 5 [facility] Work Phone: Renal Epithelial, UA NOT REPORTED 0 /HPF Me [facility] [employer] Work Phone: Specific [place], UA 1.025 [employer] Work Phone: Trichomonas, UA NOT REPORTED None [facility] Work Phone: Turbidity UA CLEAR CLEAR [facility] Work Phone: Urinalysis Comments NOT REPORTED [facility] [employer] Work Phone: Urine Hgb 1+ Abnormal NEGATIVE [facility] Work Phone: Urobilinogen, Urine Normal Normal [facility] Work Phone: WBC, UA 0 TO 2 [facility] Work Phone: Yeast, UA NOT REPORTED None [facility] Work Phone: [employer] Work Phone: Comprehensive Metabolic Pane lOrdered By: Roni Dahl on 11-22-2020 Albumin [Mass/Vol] 3.5 g/dL 3.5 - 5.2 g/dL [employer] Work Phone: Albumin/Globulin Ratio NOT REPORTED [facility] Work Phone: ALP (Bld) [Catalytic activity/Vol] 67 U/L 35 - 104 U/L [employer] Work Phone: ALT [Catalytic activity/Vol] 22 U/L 5 - 33 U/L [employer] Work Phone: Anion gap [Moles/Vol] 7 mmol/L Low 9 - 17 mmol/L [employer] Work Phone: AST [Catalytic activity/Vol] 21 U/L <32 [employer] Work Phone: Bilirubin [Mass/Vol] 0.35 mg/dL 0.30 - 1.20 mg/dL [employer] Phone: Calcium [Mass/Vol] 8.9 mg/dL 8.6 - 10. 4 mg/dL [employer] Phone: Chloride [Moles/Vol] 103 mmol/L 98 - 10 7 mmol/L [employer] Phone: CO2 [Moles/Vol] 26 mmol/L 20 - 31 mmol/L [employer] Phone: Creatinine [Mass/Vol] 0.98 mg/dL High 0.50 - 0.90 mg/dL [employer] Phone: Free PSA/Total PSA [Mass fraction] 6.3 g/dL Low 6.4 - 8.3 g/dL [employer] Phone: GFR >60 >60 mL/min [employer] Phone: GFR Non- 55 mL/min Low >60 [employer] Phone: GFR/1.73 sq M.predicted MDRD (S/P/Bld) [Vol rate/Area] [employer] Phone: Comment on above: Average GFR for 70 o r more years old: 75 mL/min/1.73sq m Chronic Kidney Disease: <60 mL/min/1.73sq m Kidney failure: <15 mL/min/1.73sq m eGFR calculated using average adult body mass. Additional eGFR calculator available at: http://www.[employer]/multiple_crcl_2012.htm GFR/1.73 sq M.predicted MDRD (S/P/Bld) [Vol rate/Area] NOT REPORTED [employer] Phone: Glucose [Mass/Vol] 94 mg/dL 70 - 99 mg/dL [employer] Phone: Interpretation and review of laboratory results Abnormal [employer] Phone: Potassium [Moles/Vol] 3.3 mmol/L Low 3.7 - 5.3 mmol/L [employer] Phone: Sodium [Moles/Vol] 136 mmol/L 135 - 144 mmol/L [employer] Phone: Urea nitrogen (BldV) [Mass/Vol] 16 mg/dL 8 - 23 mg/dL [employer] Phone: Urea nitrogen/Creatinine (Bld) [Mass ratio] 16 [employer] Phone: [employer] Phone: AmylaseOrdered By: Naida estrada on 11-18-2020 Amylase [Catalytic activity/Vol] 141 U/L High 28 - 100 U/L [employer] Phone: Interpretation and review of laboratory results Abnormal [employer] Phone: Basic Metabolic PanelOrdered By: Naida Grissom on 11-18-2020 Anion gap [Moles/Vol] 10 mmol/L 9 - 17 mmol/L [employer] Phone: Calcium [Mass/Vol] 8.9 mg/dL 8.6 - 10. 4 mg/dL [employer] Phone: Chloride [Moles/Vol] 105 mmol/L 98 - 10 7 mmol/L [employer] Phone: CO2 [Moles/Vol] 21 mmol/L 20 - 31 mmol/L [employer] Phone: Creatinine [Mass/Vol] 1.06 mg/dL High 0.50 - 0.90 mg/dL [employer] Phone: GFR >60 >60 mL/min [employer] Phone: GFR Non- 51 mL/min Low >60 [employer] Phone: GFR/1.73 sq M.predicted MDRD (S/P/Bld) [Vol rate/Area] [employer] Phone: Comment on above: Average GFR for 70 o r more years old: 75 mL/min/1.73sq m Chronic Kidney Disease: <60 mL/min/1.73sq m Kidney failure: <15 mL/min/1.73sq m eGFR calculated using average adult body mass. Additional eGFR calculator available at: http://www.[employer]multiple_crcl_2012.htm GFR/1.73 sq M.predicted MDRD (S/P/Bld) [Vol rate/Area] NOT REPORTED [employer] Phone: Glucose [Mass/Vol] 139 mg/dL High 70 - 99 mg/dL [employer] Phone: Interpretation and review of laboratory results Abnormal [employer] Phone: Potassium [Moles/Vol] 3.4 mmol/L Low 3.7 - 5.3 mmol/L [employer] Work Phone: Sodium [Moles/Vol] 136 mmol/L 135 - 144 mmol/L [employer] Phone: Urea nitrogen (BldV) [Mass/Vol] 22 mg/dL 8 - 23 mg/dL [employer] Phone: Urea nitrogen/Creatinine (Bld) [Mass ratio] 21 High [employer] Work Phone: [employer] Work Phone: CBC auto differentialOrdered By: Naida Grissom on 11-18-2020 [employer] # 0.10 [employer] [facility] Work Phone: Absolute Immature Granulocyte NOT REPORTED [employer] Phone: Absolute Lymph # 0.60 Low [employer] [facility] Work Phone: Absolute [place] # 0.[address] [facility] Work Phone: Basophils (Bld) [#/Vol] 0.00 10*3/uL [employer] Work Phone: Basophils/100 WBC (Bld) 0 % 0 - 2 % [facility] Work Phone: Differential Type YES [employer] [facility] Work Phone: Eosinophils/100 WBC (Bld) 1 % 0 - 5 % [facility] Work Phone: Hematocrit (Bld) [Volume fraction] 37.6 % 36 - 46 % [facility] Work Phone: Hemoglobin.gastrointe stinal spec 1 Ql (Stl) 12.9 g/dL 12.0 - 16.0 g/dL [employer] Phone: Immature Granulocytes NOT REPORTED 0 % M [employer] Phone: Interpretation and review of laboratory results Abnormal [employer] Phone: Lymphocytes/100 WBC (Bld) 8 % Low 15 - 40 % [employer] Phone: MCH (RBC) [Entitic mass] 31.8 pg 26 - 34 pg [employer] Phone: MCHC (RBC) [Mass/Vol] 34.4 g/dL 31 - 3 7 g/dL [employer] Phone: MCV (RBC) [Entitic vol] 92.4 fL 80 - 100 fL [employer] Work Phone: Monocytes/100 WBC (Bld) 6 % 4 - 8 % [employer] Phone: NRBC Automated NOT REPORTED per 100 WBC [employer] Phone: Platelet distribution width (Bld) [Ratio] 14.1 % 12.1 - 15.2 % [employer] Phone: Platelet Estimate NOT REPORTED [employer] Phone: Platelet mean volume (Bld) [Entitic vol] NOT REPORTED 6.0 - 12.0 fL [employer] Phone: Platelets (Bld) [#/Vol] 179 10*3/uL [employer] Phone: RBC (Bld) [#/Vol] 4.07 10*6/uL 4.0 - 5.2 m/uL [employer] Phone: RBC (Bld) [#/Vol] NOT REPORTED [employer] Phone: Segmented neutrophils/100 WBC (Bld) 85 % High 47 - 75 % [facility] Work Phone: Segs [employer] Work Phone: WBC (Bld) [#/Vol] 6.9 10*3/uL [employer] Phone: WBC (Bld) [#/Vol] NOT REPORTED [employer] Phone: [facility] Work Phone: Hepatic Function PanelOrdere d By: Naida Grissom on 11-18-2020 Albumin [Mass/Vol] 3.7 g/dL 3.5 - 5.2 g/dL [employer] Phone: Albumin/Globulin Ratio NOT REPORTED [employer] Phone: ALP (Bld) [Catalytic activity/Vol] 84 U/L 35 - 104 U/L [employer] Phone: ALT [Catalytic activity/Vol] 63 U/L High 5 - 33 U/L [employer] Phone: AST [Catalytic activity/Vol] 104 U/L High <32 [employer] Phone: Bilirubin [Mass/Vol] 0.49 mg/dL 0.30 - 1.20 mg/dL [employer] Phone: Bilirubin, Indirect CANNOT BE CALCULATED 0.00 - 1.00 mg/dL [employer] Phone: Bilirubin.indirect [Mass/Vol] mg/dL <0.31 mg/dL [facility] [employer] Work Phone: Free PSA/Total PSA [Mass fraction] 6.9 g/dL 6.4 - 8.3 g/dL [facility] [employer] Work Phone: Globulin NOT REPORTED 1.5 - 3.8 g/dL [facility] Work Phone: Interpretation and review of laboratory results Abnormal [facility] [employer] Work Phone: [facility] Work Phone: LipaseOrdered By: Naida field on 11-18-2020 Lipase [Catalytic activity/Vol] 50 U/L 13 - 60 U/L [facility] [employer] Work Phone: Microscopic UrinalysisOrdere d By: Naida Grissom on 11-18-2020 - [facility] [employer] Work Phone: Amorphous, UA NOT REPORTED None [facility] Work Phone: Bacteria, UA 1+ Abnormal None [facility] Work Phone: Casts UA NOT REPORTED /LPF [facility] Work Phone: Crystals, UA NOT REPORTED None /HPF [facility] Work Phone: Epithelial Cells UA 0 TO 2 /HPF [facility] Work Phone: Mucus, UA NOT REPORTED None [facility] Work Phone: Other Observations UA NOT REPORTED NOT REQ. M [facility] Work Phone: RBC, UA 0 TO 2 [facility] Work Phone: Renal Epithelial, UA NOT REPORTED 0 /HPF [facility] Work Phone: Trichomonas, UA NOT REPORTED None [facility] Work Phone: WBC, UA 2 TO 5 0 /HPF [facility] Work Phone: Yeast, UA NOT REPORTED None [facility] Work Phone: No Panel InformationOrdered By: Naida Grissom on 11-18-2020 Interpretation and review of laboratory results Abnormal [facility] Work Phone: [facility] Work Phone: [facility] Work Phone: Urinalysis, reflex to micros copicOrdered By: Naida Grissom on 11-18-2020 Bilirubin Urine Negative NEGATIVE [employer] [facility] Work Phone: Color, UA TARA Abnormal YELLOW [facility] Work Phone: Glucose, Ur Negative NEGATIVE [facility] Work Phone: Ketones Ql (U) Negative NEGATIVE [employer] [facility] Work Phone: Leukocyte esterase Test strip Ql (U) 1+ Abnormal NEGATIVE [facility] Work Phone: Nitrite, Urine Negative NEGATIVE [employer] Work Phone: pH, UA 5.0 [facility] Work Phone: Protein, UA Negative NEGATIVE [facility] Work Phone: Specific [place], UA 1.025 [employer] Work Phone: Turbidity UA CLEAR CLEAR [facility] Work Phone: Urinalysis Comments [facility] Work Phone: Urine Hgb 1+ Abnormal NEGATIVE [facility] Work Phone: Urobilinogen, Urine Normal Normal [facility] Work Phone: CBC Auto Differentialon 08-01 Basophils (Bld) [#/Vol] 0.00 10*3/uL [facility] Work Phone: Basophils/100 WBC (Bld) 0 % 0 - 2 % [facility] Work Phone: Differential Type YES [employer] [facility] Work Phone: Eosinophils (Bld) [#/Vol] 0.10 10*3/uL [employer] Phone: Eosinophils/100 WBC (Bld) 2 % 0 - 5 % [employer] Phone: Erythrocyte distribution width (RBC) [Ratio] 14.3 % 12.1 - 15.2 % [employer] Phone: Hematocrit (Bld) [Volume fraction] 36.5 % 36 - 46 % [employer] Phone: Hemoglobin (Bld) [Mass/Vol] 12.3 g/dL 12 - 16 g/dL [employer] Phone: Interpretation and review of laboratory results Abnormal [employer] Phone: Lymphocytes (Bld) [#/Vol] 1.20 10*3/uL [employer] Phone: Lymphocytes/100 WBC (Bld) 24 % 15 - 40 % [employer] Phone: MCH (RBC) [Entitic mass] 32.7 pg 26 - 34 pg [employer] Phone: MCHC (RBC) [Mass/Vol] 33.9 g/dL 31 - 3 7 g/dL [employer] Phone: MCV (RBC) [Entitic vol] 96.6 fL 80 - 100 fL [employer] Phone: Monocytes (Bld) [#/Vol] 0.50 10*3/uL [employer] Phone: Monocytes/100 WBC (Bld) 9 % High 4 - 8 % [employer] Phone: Platelet mean volume (Bld) [Entitic vol] NOT REPORTED 6 - 12 fL [employer] Phone: Platelets (Bld) [#/Vol] NOT REPORTED [employer] Phone: Platelets (Bld) [#/Vol] 223 10*3/uL [facility] Work Phone: RBC (Bld) [#/Vol] 3.77 10*6/uL Low 4 - 5.2 m/uL [facility] Work Phone: RBC morphology finding Nom (Bld) NOT REPORTED [employer] Phone: Segmented neutrophils/100 WBC (Bld) 65 % 47 - 75 % [facility] Work Phone: Segs Absolute 3.30 [employer] Work Phone: WBC (Bld) [#/Vol] 5.1 10*3/uL [employer] Phone: WBC (Bld) [#/Vol] NOT REPORTED per 100 WBC [employer] Phone: WBC Morphology NOT REPORTED [employer] [facility] Work Phone: Comprehensive Metabolic Pane trevor 08-11-2020 Albumin [Mass/Vol] 3.9 g/dL 3.5 - 5.2 g/dL [employer] Phone: Albumin/Globulin [Mass ratio] NOT REPORTED [employer] Phone: ALP [Catalytic activity/Vol] 76 U/L 35 - 104 U/L [employer] Phone: ALT [Catalytic activity/Vol] 16 U/L 5 - 33 U/L [employer] Phone: Anion gap [Moles/Vol] 10 mmol/L 9 - 17 mmol/L [employer] Phone: AST [Catalytic activity/Vol] 19 U/L <32 [employer] Phone: Bilirubin Ql (U) 0.35 mg/dL 0.3 - 1.2 mg/dL [employer] Phone: Bun/Cre Ratio 23 High [employer] Work Phone: Calcium [Mass/Vol] 9.9 mg/dL 8.6 - 10. 4 mg/dL [employer] Phone: Chloride [Moles/Vol] 105 mmol/L 98 - 10 7 mmol/L [employer] Phone: CO2 [Moles/Vol] 25 mmol/L 20 - 31 mmol/L [employer] Phone: Creatinine [Mass/Vol] 1.14 mg/dL High 0.5 - 0.9 mg/dL [employer] Phone: GFR 56 mL/min Low >60 [employer] Phone: GFR Non- 46 mL/min Low >60 [employer] Phone: GFR/1.73 sq M predicted among non-blacks MDRD (S/P/Bld) [Vol rate/Area] [employer] Phone: Comment on above: Average GFR for 70 o r more years old: 75 mL/min/1.73sq m Chronic Kidney Disease: <60 mL/min/1.73sq m Kidney failure: <15 mL/min/1.73sq m eGFR calculated using average adult body mass. Additional eGFR calculator available at: http://www.[employer]multiple_crcl_2012.htm GFR/1.73 sq M predicted among non-blacks MDRD (S/P/Bld) [Vol rate/Area] NOT REPORTED [employer] Phone: Glucose [Mass/Vol] 98 mg/dL 70 - 99 mg/dL [employer] Phone: Interpretation and review of laboratory results Abnormal [employer] Phone: Potassium [Moles/Vol] 4.3 mmol/L 3.7 - 5.3 mmol/L [employer] Phone: Protein [Mass/Vol] 6.7 g/dL 6.4 - 8.3 g/dL [employer] Phone: Sodium [Moles/Vol] 140 mmol/L 135 - 144 mmol/L [employer] Phone: Urea nitrogen [Mass/Vol] 26 mg/dL High 8 - 23 mg/dL [employer] Phone: Lipid Panelon 08-11-2020 Cholesterol [Mass/Vol] 126 mg/dL <200 [employer] Phone: Comment on above: Cholesterol Guidelines: <200 Desirable 200-240 Borderline >240 Undesirable Cholesterol in HDL [Mass/Vol] 45 mg/dL >40 [employer] Phone: Comment on above: HDL Guidelines: <40 Undesirable 40-59 Borderline >59 Desirable Cholesterol in LDL [Mass/Vol] 62 mg/dL 0 - 130 mg/dL [employer] Phone: Comment on above: LDL Guidelines: <100 Desirable 100-129 Near to/above Desirable 130-159 Borderline >159 Undesirable Direct (measured) LDL and calculated LDL are not interchangeable tests. Cholesterol in VLDL [Mass/Vol] NOT REPORTED 1 - 30 mg/dL [employer] Phone: Cholesterol.total/Cho lesterol in HDL [Mass ratio] 2.8 {ratio} <5 [employer] Phone: Triglyceride [Mass/Vol] 94 mg/dL <150 [employer] Phone: Comment on above: Triglyceride Guidelines: <150 Desirable 150-199 Borderline 200-499 High >499 Very high Based on AHA Guidelines for fasting triglyceride, March 2012. Magnesiumon 08-11-2020 Magnesium [Mass/Vol] 2.1 mg/dL 1.6 - 2 .6 mg/dL [employer] Phone: Otheron 08-11-2020 Immature granulocytes (Bld) [#/Vol] NOT REPORTED [employer] Phone: Patient Fasting?on 1 Patient Fasting? yes [employer] Work Phone: TSH with Reflexon 08-11-2020 TSH Qn 2.05 m[IU]/L [employer] Phone: Vitamin D 25 Hydroxyon 08-11 Vit D, 25-Hydroxy 50.9 ng/mL 30 - 100 ng/mL [employer] Phone: Comment on above: Reference Range: Vitamin D status Range Deficiency <20 ng/mL Mild Deficiency 20-30 ng/mL Sufficiency 30-100 ng/mL Toxicity >100 ng/mL CBC Auto Differentialon 10-0 Basophils (Bld) [#/Vol] 0.00 10*3/uL [place] Basophils/100 WBC (Bld) 1 % 0 - 2 % [place] Differential Type YES [place] Eosinophils (Bld) [#/Vol] 0.10 10*3/uL [place] Eosinophils/100 WBC (Bld) 1 % 0 - 5 % [place] Erythrocyte distribution width (RBC) [Ratio] 14.2 % 12.1 - 15.2 % [place] Hematocrit (Bld) [Volume fraction] 37.4 % 36 - 46 % [place] Hemoglobin (Bld) [Mass/Vol] 12.4 g/dL 12 - 16 g/dL [place] Interpretation and review of laboratory results Abnormal [place] Lymphocytes (Bld) [#/Vol] 1.50 10*3/uL [place] Lymphocytes/100 WBC (Bld) 24 % 15 - 40 % [place] MCH (RBC) [Entitic mass] 32.1 pg 26 - 34 pg [place] MCHC (RBC) [Mass/Vol] 33.2 g/dL 31 - 3 7 g/dL [place] MCV (RBC) [Entitic vol] 96.7 fL 80 - 100 fL [place] Monocytes (Bld) [#/Vol] 0.50 10*3/uL [place] Monocytes/100 WBC (Bld) 9 % High 4 - 8 % [place] Platelet mean volume (Bld) [Entitic vol] NOT REPORTED 6 - 12 fL [place] Platelets (Bld) [#/Vol] 205 10*3/uL [place] Platelets (Bld) [#/Vol] NOT REPORTED [place] RBC (Bld) [#/Vol] 3.87 10*6/uL Low 4 - 5.2 m/uL [place] RBC morphology finding Nom (Bld) NOT REPORTED [place] Segmented neutrophils/100 WBC (Bld) 65 % 47 - 75 % [place] Segs Absolute 4.10 [place] WBC (Bld) [#/Vol] NOT REPORTED per 100 WBC [place] WBC (Bld) [#/Vol] 6.2 10*3/uL [place] WBC Morphology NOT REPORTED [place], [place] CT Head WO Contraston 2019 CT [...] by noncontrast CT. There is intracranial atherosclerosis. [place] Magdiel, [employer] Incoming R adiant Results From [employer] - 03/31/2020 4:[address] head [...] MRI would be recommended for further evaluation. [place] 1. No acute intracra nial abnormality. 2. Stable chronic small vessel ischemic disease. 3. Intracranial atherosclerosis. If the patient has a focal neurologic deficit or there is clinical suspicion for acute cerebrovascular accident, brain MRI would be recommended for further evaluation. [place] Comprehensive Metabolic Pane l w/ Reflex to MGon 03-31-2020 Albumin [Mass/Vol] 4.2 g/dL 3.5 - 5.2 g/dL [place] Albumin/Globulin [Mass ratio] NOT REPORTED [place] ALP [Catalytic activity/Vol] 75 U/L 35 - 104 U/L [place] ALT [Catalytic activity/Vol] 11 U/L 5 - 33 U/L [place] Anion gap [Moles/Vol] 8 mmol/L Low 9 - 17 mmol/L [place] AST [Catalytic activity/Vol] 17 U/L <32 [place] Bilirubin Ql (U) 0.38 mg/dL 0.3 - 1.2 mg/dL [place] Bun/Cre Ratio 21 High [place] Calcium [Mass/Vol] 9.1 mg/dL 8.6 - 10. 4 mg/dL [place] Chloride [Moles/Vol] 98 mmol/L 98 - 10 7 mmol/L [place] CO2 [Moles/Vol] 28 mmol/L 20 - 31 mmol/L [place] Creatinine [Mass/Vol] 1.04 mg/dL High 0.5 - 0.9 mg/dL [place] GFR >60 >60 mL/min [place] GFR Non- 52 mL/min Low >60 [place] GFR/1.73 sq M predicted among non-blacks MDRD (S/P/Bld) [Vol rate/Area] [place] Comment on above: Average GFR for 70 o r more years old: 75 mL/min/1.73sq m Chronic Kidney Disease: <60 mL/min/1.73sq m Kidney failure: <15 mL/min/1.73sq m eGFR calculated using average adult body mass. Additional eGFR calculator available at: http://www.[employer]multiple_crcl_2012.htm GFR/1.73 sq M predicted among non-blacks MDRD (S/P/Bld) [Vol rate/Area] NOT REPORTED [place] Glucose [Mass/Vol] 94 mg/dL 70 - 99 mg/dL [place] Interpretation and review of laboratory results Abnormal [place] Potassium [Moles/Vol] 4.2 mmol/L 3.7 - 5.3 mmol/L [place] Protein [Mass/Vol] 7.1 g/dL 6.4 - 8.3 g/dL [place] Sodium [Moles/Vol] 134 mmol/L Low 135 - 144 mmol/L [place] Urea nitrogen [Mass/Vol] 22 mg/dL 8 - 23 mg/dL [place] Microscopic Urinalysison Amorphous, UA NOT REPORTED None [facility] [place] Bacteria, UA NOT REPORTED None [place] Casts UA NOT REPORTED /LPF [place] Crystals, UA NOT REPORTED None /HPF [place] Epithelial Cells UA 0 TO 2 /HPF [place] Mucus, UA NOT REPORTED None [place] Other Observations UA NOT REPORTED NOT REQ. M [place], [place] RBC (U) [#/Vol] 2 TO 5 [place] Renal Epithelial, UA NOT REPORTED 0 /HPF [place] Trichomonas, UA NOT REPORTED None [place] WBC, UA 0 TO 2 0 /HPF [place] Yeast, UA NOT REPORTED None [place], [place] - [place] Otheron 03-31-2020 Immature granulocytes (Bld) [#/Vol] NOT REPORTED 0 % [place] TSH with Reflexon 03-31-2020 TSH Qn 1.98 m[IU]/L [place] Troponinon 03-31-2020 Troponin I.cardiac [Mass/Vol] [place] Comment on above: Reference Range: <0.03 [...] diagnosis. Troponin T.cardiac [Mass/Vol] ug/L <0.03 ng/mL [place] Comment on above: Troponin T results c annot be compared to Troponin-I results. Troponin, High Sensitivity NOT REPORTED 0 - 14 ng/L [place] Urinalysis, reflex to micros copicon 03-31-2020 Bilirubin Urine Negative NEGATIVE [place] Color, UA YELLOW YELLOW [place] Glucose, Ur Negative NEGATIVE [place] Interpretation and review of laboratory results Abnormal [place] Ketones Ql (U) Negative NEGATIVE [place] Leukocyte esterase Test strip Ql (U) Negative NEGATIVE [place] Nitrite, Urine Negative NEGATIVE [place] pH, UA 7.0 [place] Protein (U) [Mass/Vol] Negative NEGATIVE [place] Specific [place], UA 1.005 [place] Turbidity UA CLEAR CLEAR [place] Urinalysis Comments [place] Urine Hgb TRACE Abnormal NEGATIVE [place] Urobilinogen, Urine Normal Normal [place] XR CHEST PORTABLEon 03-31-20 20 Negative chest. [facility] [place] Magdiel, Mh[employer] Incoming R adiant Results From [employer] - 03/31/2020 2:47 PM EDT EXAM: XR CHEST PORTABLE HISTORY: Reason for exam:->gen weakness 74-year-old female COMPARISON: Chest 07/07/2019 TECHNIQUE: AP portable chest 1424 hours FINDINGS: Heart size normal. Lungs clear. Bony thorax and upper abdomen normal. IMPRESSION: Negative chest. [place] EXAM: XR CHEST STARLA BLE HISTORY: Reason for exam:->gen weakness 74-year-old female COMPARISON: Chest 07/07/2019 TECHNIQUE: AP portable chest 1424 hours FINDINGS: Heart size normal. Lungs clear. Bony thorax and upper abdomen normal. [place] CBC Auto DifferentialOrdered By: Reagan Givens on 07-07-2019 Absolute [employer] # 0.10 [facility] Work Phone: Absolute Immature Granulocyte NOT REPORTED [facility] Work Phone: Absolute Lymph # 1.20 [facility] Work Phone: Absolute [place] # 0.40 [facility] Work Phone: Basophils (Bld) [#/Vol] 0.00 10*3/uL [facility] Work Phone: Basophils/100 WBC (Bld) 0 % 0 - 2 % [facility] Work Phone: Differential Type YES [facility] Work Phone: Eosinophils/100 WBC (Bld) 2 % 0 - 5 % [facility] Work Phone: Erythrocyte distribution width (RBC) [Ratio] 14.6 % 12.1 - 15.2 % [facility] Work Phone: Hematocrit (Bld) [Volume fraction] 35.9 % Low 36 - 46 % [facility] Work Phone: Hemoglobin (Bld) [Mass/Vol] 12.2 g/dL 12 - 16 g/dL [employer] Phone: Immature Granulocytes NOT REPORTED 0 % [facility] Work Phone: Interpretation and review of laboratory results Abnormal [employer] Phone: Lymphocytes/100 WBC (Bld) 28 % 15 - 40 % [facility] Work Phone: MCH (RBC) [Entitic mass] 33.2 pg 26 - 34 pg [employer] Phone: MCHC (RBC) [Mass/Vol] 34.1 g/dL 31 - 3 7 g/dL [employer] Phone: MCV (RBC) [Entitic vol] 97.3 fL 80 - 100 fL [employer] Phone: Monocytes/100 WBC (Bld) 10 % High 4 - 8 % [facility] Work Phone: MPV NOT REPORTED 6 - 12 fL [employer] Phone: NRBC Automated NOT REPORTED per 100 WBC [employer] Phone: Platelet Estimate NOT REPORTED [employer] Phone: Platelets (Bld) [#/Vol] 223 10*3/uL [facility] Work Phone: RBC (Bld) [#/Vol] 3.69 10*6/uL Low 4 - 5.2 m/uL [facility] Work Phone: RBC morphology finding Nom (Bld) NOT REPORTED [facility] Phone: Segmented neutrophils/100 WBC (Bld) 60 % 47 - 75 % [facility] Work Phone: Segs Absolute 2.60 [employer] Work Phone: WBC (Bld) [#/Vol] 4.4 10*3/uL [facility] Work Phone: WBC Morphology NOT REPORTED [employer] [facility] Work Phone: Comprehensive Metabolic Pane lOrdered By: Reagan Givens on 07-07-2019 Albumin [Mass/Vol] 4.2 g/dL 3.5 - 5.2 g/dL [employer] Phone: Albumin/Globulin Ratio NOT REPORTED [facility] Work Phone: ALP [Catalytic activity/Vol] 66 U/L 35 - 104 U/L [facility] Work Phone: ALT [Catalytic activity/Vol] 9 U/L 5 - 33 U/L [employer] Phone: Anion gap [Moles/Vol] 14 mmol/L 9 - 17 mmol/L [employer] Phone: AST [Catalytic activity/Vol] 17 U/L <32 [facility] Work Phone: Bilirubin [Mass/Vol] 0.32 mg/dL 0.3 - 1 .2 mg/dL [employer] Phone: Bun/Cre Ratio 17 [facility] Work Phone: Calcium [Mass/Vol] 10.2 mg/dL 8.6 - 10. 4 mg/dL [employer] Phone: Chloride [Moles/Vol] 103 mmol/L 98 - 10 7 mmol/L [facility] Work Phone: CO2 [Moles/Vol] 24 mmol/L 20 - 31 mmol/L [facility] Work Phone: Creatinine [Mass/Vol] 1.26 mg/dL High 0.5 - 0.9 mg/dL [employer] Phone: GFR 50 mL/min Low >60 [employer] Work Phone: GFR Comment [facility] Work Phone: Comment on above: Average GFR for 70 o r more years old: 75 mL/min/1.73sq m Chronic Kidney Disease: <60 mL/min/1.73sq m Kidney failure: <15 mL/min/1.73sq m eGFR calculated using average adult body mass. Additional eGFR calculator available at: http://www.[employer]multiple_crcl_2012.htm GFR Non- 42 mL/min Low >60 [employer] Phone: GFR Staging NOT REPORTED [employer] Work Phone: Glucose [Mass/Vol] 106 mg/dL High 70 - 99 mg/dL [employer] Phone: Interpretation and review of laboratory results Abnormal [employer] Phone: Potassium [Moles/Vol] 3.8 mmol/L 3.7 - 5.3 mmol/L [employer] Phone: Protein [Mass/Vol] 7.4 g/dL 6.4 - 8.3 g/dL [employer] Phone: Sodium [Moles/Vol] 141 mmol/L 135 - 144 mmol/L [employer] Phone: Urea nitrogen [Mass/Vol] 22 mg/dL 8 - 23 mg/dL [employer] Phone: Lipid PanelOrdered By: Reagan Givens on 07-07-2019 Cholesterol [Mass/Vol] 169 mg/dL <200 [employer] Phone: Comment on above: Cholesterol Guidelines: <200 Desirable 200-240 Borderline >240 Undesirable Cholesterol in HDL [Mass/Vol] 54 mg/dL >40 [employer] Phone: Comment on above: HDL Guidelines: <40 Undesirable 40-59 Borderline >59 Desirable Cholesterol in LDL [Mass/Vol] 91 mg/dL 0 - 130 mg/dL [employer] Phone: Comment on above: LDL Guidelines: <100 Desirable 100-129 Near to/above Desirable 130-159 Borderline >159 Undesirable Direct (measured) LDL and calculated LDL are not interchangeable tests. Cholesterol.total/Cho lesterol in HDL [Mass ratio] 3.1 {ratio} <5 [employer] Phone: Triglyceride [Mass/Vol] 118 mg/dL <150 [employer] Phone: Comment on above: Triglyceride Guidelines: <150 Desirable 150-199 Borderline 200-499 High >499 Very high Based on AHA Guidelines for fasting triglyceride, March 2012. VLDL NOT REPORTED 1 - 30 mg/dL [employer] Phone: MagnesiumOrdered By: Reagan borja on 07-07-2019 Magnesium [Mass/Vol] 2.4 mg/dL 1.6 - 2 .6 mg/dL [employer] Phone: Patient Fasting?Ordered By: Reagan Givens on 07-07-2019 Patient Fasting? yes [employer] Phone: TSH with ReflexOrdered By: Jose Carlos Givens on 07-07-2019 TSH Qn 2.66 m[IU]/L [employer] Phone: Vitamin D 25 HydroxyOrdered By: Reagan Givens on 07-07-2019 Vit D, 25-Hydroxy 76.8 ng/mL 30 - 100 ng/mL [employer] Phone: Comment on above: Reference Range: Vitamin D status Range Deficiency <20 ng/mL Mild Deficiency 20-30 ng/mL Sufficiency 30-100 ng/mL Toxicity >100 ng/mL XR CHEST STANDARD (2 VW)Orde red By: Reagan Givens on 07-07-2019 Stable chest compare d to 05/30/2019. [employer] Phone: EXAM: XR CHEST (2 VW ) HISTORY: Reason for exam:->htn 73-year-old female. COMPARISON: Prior studies, most recent being a two-view chest 05/30/2019 TECHNIQUE: Two-view chest FINDINGS: Surgical clips right upper quadrant abdomen. Heart size normal. Lungs clear. Minimal degenerative change thoracic spine. [employer] Phone: Magdiel, [employer] Incoming R adiant Results From [employer] - 07/07/2019 10:15 AM EST EXAM: XR CHEST (2 VW) HISTORY: Reason for exam:->htn 73-year-old female. COMPARISON: Prior studies, most recent being a two-view chest 05/30/2019 TECHNIQUE: Two-view chest FINDINGS: Surgical clips right upper quadrant abdomen. Heart size normal. Lungs clear. Minimal degenerative change thoracic spine. IMPRESSION: Stable chest compared to 05/30/2019. [facility] Work Phone: Clostridium Difficile Toxin/ AntigenOrdered By: Roni Dahl on 04-23-2019 C DIFF AG + TOXIN Negative NEGATIVE [place] Comment on above: No C. difficile anti gen and Toxin Detected. Specimen Description .[facility]-10-2018 CNOV Office Visit (SPNSMN) MARY JANE RIOS ([id number]) 1945 [facility] Time Provider Department03/10/18 9:55 AM ANDREWS FISH SPNSMN During your visit today, we recorded the following information about you: Pulse Respiration Blood pressure Weight 69/minute 18/minute 130/77 102.1 kg Height 1.626 Jamaica Fish MD 03/10/2018 10:50 AM [facility] SURGERY OUTPATIENT CONSULTSERVICE DATE: 03/10/2018PCP: MARTINEZ Anne PROVIDER:Lanie Prince, [id number] [address] [id number] requested for an opinion regarding the evaluation [...] : 10:44 AM PAGER:Referring Provider: LANIE PRINCE [[id number]]Allergies As of Date: 03/10/2018 Noted Allergy ReactionGLUTEN FLOUR 03/10/2018 8 - GI Upset 9 - ItchingLEXAPRO (ESCITALOPRAM OXALATE) 08/19/2007 9 - ItchingMORPHINE 07/04/2007SULFA (SULFONAMIDE ANTIBIOTICS) 07/04/2007Date Reviewed: 03/10/2018Reviewed by: Alanna Chang Ma - Fully AssessedReason for Visit: New Patient [172]Primary Visit Diagnosis:Degenerative scoliosis [M41.9]Order(s):XR LUMBAR LIMITED 2V AP/LAT [[id number]] Order #: [id number] FUTUREPrescriptions as of 03/10/2018 Sig: ASPIRIN 81 [...] by ANDREWS FISH MD on 03/10/18 Normal [facility] PROGRESSon 03-10-2018 Protein mass conc HNO ID: [id number] thor: Katelin Hollingsworth RtService: (none)Author Type: (none)Type: Progress NotesFiled: 03/10/2018 11:05 AMNote Text: Radiology Service Progress NotePATIENT NAME: Mary Jane AthyMRN: [id number] OF SERVICE: March 10, 2018TIME: 11:04 AMPATIENT IDENTITY VERIFICATION COMPLETED USING TWO (2) METHODS: Patientconfirmed name verbally and Date of .PATIENT GENDER DATA: Female. status: : NoBreastfeeding status: NO.PATIENT RELEVANT IMPLANT DATA REVIEWED: Not ApplicableRADIOLOGY DEPARTMENT: General X-ray: Exam(s) Completed: Spine X-Ray(s):Lumbar AP / LAT / [id number] IV DATA: Not applicableSIGNED BY: Katelin Hollingsworth RtSeptember 2017 11:04 AM Normal [facility] Protein mass conc HNO ID: [id number] thor: Andrews BarriosageService: (none)Author Type: PhysicianType: Progress NotesFiled: 03/10/2018 10:50 AMNote Text:SPINE SURGERY OUTPATIENT CONSULTSERVICE DATE: 03/10/2018PCP: Roni Motta MDREFERRING PROVIDER:Lanie Prince, [id number] [address] [id number] requested for an opinion regarding the evaluation [...] 10, 2018 : 10:44 AM PAGER: Normal [facility] XR LUMBAR 2V AP/LATon 2017 XR [...] lordosis, grade 1 spondylolisthesis of L4 upon G4Djtahshnt bodies: Normal in height. No vertebral fracture.Spine [...] STEIN MD on Mar 10 2018 11:23AM [id number] Normal [facility] Vital Signs Date Time Vital Sign Value Performing Clinician Facility 02-05-2025 09:34-0400 Body mass index (BMI) [Ratio] 36.73 kg/m2 Georges Barger PA-C Work Phone: [facility] 02-05-2025 09:34-0400 Body temperature 98.49 [degF] Georges Barger PA-C Work Phone: [facility] 02-05-2025 09:34-0400 Body weight 97.07 kg Georges Barger PA-C Work Phone: [facility] 02-05-2025 09:34-0400 Diastolic blood pressure 65 mm[Hg] Georges Barger PA-C Work Phone: [facility] 02-05-2025 09:34-0400 Heart rate 76 /min Georges Barger PA-C Work Phone: [facility] 02-05-2025 09:34-0400 Respiratory rate 16 /min Georges Barger PA-C Work Phone: [facility] 02-05-2025 09:34-0400 SaO2% (BldA) [Mass fraction] 97 % Georges Barger PA-C Work Phone: [facility] 02-05-2025 09:34-0400 Systolic blood pressure 136 mm[Hg] Georges Barger PA-C Work Phone: [facility] 01-15-2025 09:17-0400 Body mass index (BMI) [Ratio] 36.39 kg/m2 Christian Lamport PA-C Work Phone: [facility] 01-15-2025 09:17-0400 Body temperature 97.3 [degF] Christian Lamport PA-C Work Phone: [facility] 01-15-2025 09:17-0400 Body weight 96.16 kg Christian Lamport PA-C Work Phone: [facility] 01-15-2025 09:17-0400 Diastolic blood pressure 80 mm[Hg] Christian Lamport PA-C Work Phone: [facility] 01-15-2025 09:17-0400 Heart rate 72 /min Christian Lamport PA-C Work Phone: [facility] 01-15-2025 09:17-0400 Respiratory rate 16 /min Christian Plattort PA-C Work [facility] [facility] 01-15-2025 09:17-0400 SaO2% (BldA) [Mass fraction] 98 % Christian Lamport PA-C Work Phone: [facility] 01-15-2025 09:17-0400 Systolic blood pressure 133 mm[Hg] Christian Plattort PA-C Work Phone: [facility] 11-26-2024 09:21-0400 Body height 163.8 cm Christopher Bohach DPM Work Phone: [facility] 11-26-2024 09:21-0400 Body mass index (BMI) [Ratio] 35.83 kg/m2 Christopher Bohach DPM Work Phone: [facility] 11-26-2024 09:21-0400 Body weight 96.16 kg Christopher Bohach DPM Work Phone: [facility] 11-26-2024 09:21-0400 Diastolic blood pressure 73 mm[Hg] Christopher Bohach DPM Work Phone: [facility] 11-26-2024 09:21-0400 Heart rate 75 /min Christopher Bohach DPM Work Phone: [facility] 11-26-2024 09:21-0400 Systolic blood pressure 140 mm[Hg] Christopher Bohach DPM Work Phone: [facility] 08-17-2024 13:49-0500 Body height 163.8 cm Christopher Bohach DPM Work Phone: [facility] 08-17-2024 13:49-0500 Body mass index (BMI) [Ratio] 35.83 kg/m2 Christopher Bohach DPM Work Phone: [facility] 08-17-2024 13:49-0500 Body weight 96.16 kg Christopher Bohach DPM Work Phone: [facility] 08-17-2024 13:49-0500 Diastolic blood pressure 75 mm[Hg] Lexy Canales DPM Work Phone: [facility] 08-17-2024 13:49-0500 Heart rate 70 /min Lexy Canales DPM Work Phone: [facility] 08-17-2024 13:49-0500 Respiratory rate 18 /min Lexy Canales DPM Work Phone: [facility] 08-17-2024 13:49-0500 Systolic blood pressure 127 mm[Hg] Lexy Canales DPM Work Phone: [facility] 07-10-2024 06:34-0500 Body height 162.6 cm Lexy Tapia MD Work Phone: [facility] [employer] 07-10-2024 06:34-0500 Body mass index (BMI) [Ratio] 36.39 kg/m2 Lexy Tapia MD Work Phone: [facility] 07-10-2024 06:34-0500 Body weight 96.16 kg Lexy Tapia MD Work Phone: [facility] 07-10-2024 06:30-0500 Body temperature 98.29 [degF] Lexy Tapia MD Work Phone: [facility] [employer] 07-10-2024 06:30-0500 Diastolic blood pressure 59 mm[Hg] Lexy Tapia MD Work Phone: [facility] 07-10-2024 06:30-0500 Heart rate 74 /min Lexy Tapia MD Work Phone: [facility] 07-10-2024 06:30-0500 Respiratory rate 17 /min Lexy Tapia MD Work Phone: [facility] 07-10-2024 06:30-0500 SaO2% (BldA) [Mass fraction] 98 % Lexy Taipa MD Work Phone: [facility] [employer] 07-10-2024 06:30-0500 Systolic blood pressure 133 mm[Hg] Lexy Tapia MD Work Phone: [facility] [employer] 06-24-2024 18:05-0500 SaO2% (BldA) [Mass fraction] 96 % Monster Mei MD Work Phone: [facility] [employer] 06-24-2024 18:00-0500 Diastolic blood pressure 73 mm[Hg] Monster Mei MD Work Phone: [facility] [employer] 06-24-2024 18:00-0500 Systolic blood pressure 158 mm[Hg] Monster Mei MD Work Phone: [facility] [employer] 06-24-2024 17:25-0500 Body height 162.6 cm Monster Mei MD Work Phone: [facility] [employer] 06-24-2024 17:25-0500 Body mass index (BMI) [Ratio] 36.39 kg/m2 Monster Mei MD Work Phone: [facility] [employer] 06-24-2024 17:25-0500 Body temperature 99.7 [degF] Monster Mei MD Work Phone: [facility] [employer] 06-24-2024 17:25-0500 Body weight 96.16 kg Monster Mei MD Work Phone: [facility] [employer] 06-24-2024 17:25-0500 Heart rate 75 /min Monster Mei MD Work Phone: [facility] [employer] 06-24-2024 17:25-0500 Respiratory rate 19 /min Monster Mei MD Work Phone: [facility] [employer] 11-14-2023 22:17-0400 Diastolic blood pressure 85 mm[Hg] Jessica Farrar MD Work Phone: [employer] 11-14-2023 22:17-0400 Heart rate 60 /min Jessica Farrar MD Work Phone: [facility] [employer] 11-14-2023 22:17-0400 Respiratory rate 17 /min Jessica Farrar MD Work Phone: [facility] [employer] 11-14-2023 22:17-0400 SaO2% (BldA) [Mass fraction] 96 % Jessica Farrar MD Work Phone: [facility] [employer] 11-14-2023 22:17-0400 Systolic blood pressure 122 mm[Hg] Jessica Farrar MD Work Phone: [facility] 11-14-2023 18:48-0400 Body temperature 98.01 [degF] Jessica Farrar MD Work Phone: [facility] [employer] 11-14-2023 18:42-0400 Body height 162.6 cm Jessica Farrar MD Work Phone: [facility] 11-14-2023 18:42-0400 Body mass index (BMI) [Ratio] 37.08 kg/m2 Jessica Farrar MD Work Phone: [facility] [employer] 11-14-2023 18:42-0400 Body weight 97.98 kg Jessica Farrar MD Work Phone: [facility] 10-23-2023 12:23-0400 Heart rate 79 /min Lexy Tapia MD Work Phone: [facility] [employer] 10-23-2023 12:23-0400 Respiratory rate 16 /min Lexy Tapia MD Work Phone: [facility] [employer] 10-23-2023 12:23-0400 SaO2% (BldA) [Mass fraction] 97 % Lexy Tapia MD Work Phone: [facility] [employer] 10-23-2023 12:13-0400 Diastolic blood pressure 65 mm[Hg] Lexy Tapia MD Work Phone: [facility] 10-23-2023 12:13-0400 Systolic blood pressure 100 mm[Hg] Lexy Tapia MD Work Phone: [facility] 10-23-2023 09:46-0400 Body height 160 cm Lexy Tapia MD Work Phone: [facility] 10-23-2023 09:46-0400 Body mass index (BMI) [Ratio] 38.09 kg/m2 Lexy Tapia MD Work Phone: [facility] 10-23-2023 09:46-0400 Body temperature 98.1 [degF] Lexy Tapia MD Work Phone: [facility] 10-23-2023 09:46-0400 Body weight 97.52 kg Lexy Tapia MD Work Phone: [facility] 09-16-2023 15:15-0400 Diastolic blood pressure 67 mm[Hg] Ricardo Sarmini [facility] 09-16-2023 15:15-0400 Heart rate 53 /min Ricardo Sarmini [facility] 09-16-2023 15:15-0400 Respiratory rate 14 /min Ricardo Sarmini [facility] 09-16-2023 15:15-0400 Systolic blood pressure 148 mm[Hg] Ricardo Sarmini [facility] 09-16-2023 15:00-0400 Diastolic blood pressure 81 mm[Hg] Ricardo Sarmini [facility] 09-16-2023 15:00-0400 Heart rate 54 /min Ricardo Sarmini [facility] 09-16-2023 15:00-0400 Systolic blood pressure 153 mm[Hg] Ricardo Sarmini [facility] 09-16-2023 14:55-0400 Diastolic blood pressure 89 mm[Hg] Ricardo Sarmini [facility] 09-16-2023 14:55-0400 Heart rate 60 /min Ricardo Sarmini [facility] 09-16-2023 14:55-0400 Respiratory rate 20 /min Ricardo Sarmini [facility] 09-16-2023 14:55-0400 SaO2% (BldA) [Mass fraction] 100 % Ricardo Sarmini [facility] 09-16-2023 14:55-0400 Systolic blood pressure 135 mm[Hg] Ricardo Sarmini [facility] 09-16-2023 14:44-0400 Body temperature 96.8 [degF] Ricardo Sarmini [facility] 09-16-2023 14:35-0400 Respiratory rate 12 /min Ricardo Sarmini [facility] 09-16-2023 14:25-0400 Respiratory rate 12 /min Ricardo Sarmini [facility] 09-16-2023 14:15-0400 Respiratory rate 12 /min Ricardo Sarmini [facility] 09-16-2023 13:14-0400 Blood Pressure Location Ricardo Sarmini [facility] 09-16-2023 13:14-0400 Body temperature 96.8 [degF] Ricardo Sarmini [facility] 07-01-2023 15:32-0500 Body height 160 cm Monster Mei MD Work Phone: [facility] [employer] 07-01-2023 15:32-0500 Body mass index (BMI) [Ratio] 36.49 kg/m2 Monster Mei MD Work Phone: [facility] [employer] 07-01-2023 15:32-0500 Body temperature 98.91 [degF] Monster Mei MD Work Phone: [facility] [employer] 07-01-2023 15:32-0500 Body weight 93.44 kg Monster Mei MD Work Phone: [facility] [employer] 07-01-2023 15:32-0500 Diastolic blood pressure 70 mm[Hg] Monster Mei MD Work Phone: [facility] [employer] 07-01-2023 15:32-0500 Heart rate 80 /min Monster Mei MD Work Phone: [facility] [employer] 07-01-2023 15:32-0500 Respiratory rate 20 /min Monster Mei MD Work Phone: [facility] [employer] 07-01-2023 15:32-0500 SaO2% (BldA) [Mass fraction] 97 % Monster Mei MD Work Phone: [facility] [employer] 07-01-2023 15:32-0500 Systolic blood pressure 138 mm[Hg] Monster Mei MD Work Phone: [facility] [employer] 05-02-2023 08:55-0400 Body height 162.6 cm Grayson Hutchinson Jr., DO Work Phone: [facility] 05-02-2023 08:55-0400 Body mass index (BMI) [Ratio] 36.46 kg/m2 Grayson Hutchinson Jr., DO Work Phone: [facility] 05-02-2023 08:55-0400 Body temperature 97.7 [degF] Grayson Hutchinson Jr., DO Work Phone: [facility] 05-02-2023 08:55-0400 Body weight 96.34 kg Grayson Hutchinson Jr., DO Work Phone: [facility] 05-02-2023 08:55-0400 Diastolic blood pressure 82 mm[Hg] Grayson Hutchinson Jr., DO Work Phone: [facility] 05-02-2023 08:55-0400 Heart rate 72 /min Grayson Hutchinson Jr., DO Work Phone: [facility] 05-02-2023 08:55-0400 Systolic blood pressure 150 mm[Hg] Grayson Hutchinson Jr., DO Work Phone: [facility] 03-19-2023 08:55-0400 Diastolic blood pressure 73 mm[Hg] MD Roni Dahl Work Phone: [facility] 03-19-2023 08:55-0400 Heart rate 63 /min MD Roni Dahl Work Phone: [facility] 03-19-2023 08:55-0400 Respiratory rate 16 /min MD Roni Dahl Work Phone: [facility] 03-19-2023 08:55-0400 SaO2% (BldA) [Mass fraction] 95 % MD Roni Dahl Work Phone: [facility] 03-19-2023 08:55-0400 Systolic blood pressure 141 mm[Hg] MD Roni Dahl Work Phone: [facility] 03-19-2023 08:15-0400 Inhaled oxygen flow rate 3 L/min MD Roni Dahl Work Phone: [facility] 03-19-2023 07:19-0400 Body height 160.02 cm MD Roni Dahl Work Phone: [facility] 03-19-2023 07:19-0400 Body weight 96.61 kg MD Roni Dahl Work Phone: [facility] 03-07-2023 09:20-0400 Body height Mukul Wilson Other [employer] Other 03-07-2023 09:20-0400 Body mass index (BMI) [Ratio] 35.99 kg/m2 Mukul Wilson Other [employer] Other 03-07-2023 09:20-0400 Body weight 96.62 kg Mukul Wilson Other [employer] Other 03-07-2023 09:20-0400 Diastolic blood pressure 80 mm[Hg] Mukul Steve Other [employer] Other 03-07-2023 09:20-0400 Systolic blood pressure 152 mm[Hg] Mukul Wilson Other [employer] Other 03-01-2023 12:05-0400 Body height 162.56 cm MD Roni Dahl Work Phone: [facility] 03-01-2023 12:05-0400 Body temperature 98.6 [degF] MD Roni Dahl Work Phone: [facility] 03-01-2023 12:05-0400 Body weight 96.61 kg MD Roni Dahl Work Phone: [facility] 03-01-2023 12:05-0400 Diastolic blood pressure 74 mm[Hg] MD Roni Dahl Work Phone: [facility] 03-01-2023 12:05-0400 Heart rate 59 /min MD Roni Dahl Work Phone: [facility] 03-01-2023 12:05-0400 Respiratory rate 20 /min MD Roni Dahl Work Phone: [facility] 03-01-2023 12:05-0400 SaO2% (BldA) [Mass fraction] 96 % MD Roni Dahl Work Phone: [facility] 03-01-2023 12:05-0400 Systolic blood pressure 143 mm[Hg] MD Roni Dahl Work Phone: [facility] 02-28-2023 12:51-0400 Blood Pressure Location Ricardo Sarmini [facility] 02-28-2023 12:51-0400 Diastolic blood pressure 92 mm[Hg] Ricardo Sarmini [facility] 02-28-2023 12:51-0400 Heart rate 64 /min Ricardo Sarmini [facility] 02-28-2023 12:51-0400 Respiratory rate 16 /min Ricardo Sarmini [facility] 02-28-2023 12:51-0400 SaO2% (BldA) [Mass fraction] 98 % Ricardo Sarmini [facility] 02-28-2023 12:51-0400 Systolic blood pressure 135 mm[Hg] Ricardo Sarmini [facility] 02-08-2023 14:05-0400 Body temperature 98.1 [degF] Roni Dahl MD Work Phone: [facility] [employer] 02-08-2023 14:05-0400 Diastolic blood pressure 63 mm[Hg] Roni Dahl MD Work Phone: [facility] 02-08-2023 14:05-0400 Heart rate 59 /min Roni Dahl MD Work Phone: [facility] [employer] 02-08-2023 14:05-0400 Respiratory rate 13 /min Roni Dahl MD Work Phone: [facility] [employer] 02-08-2023 14:05-0400 SaO2% (BldA) [Mass fraction] 97 % Roni Dahl MD Work Phone: [facility] [employer] 02-08-2023 14:05-0400 Systolic blood pressure 143 mm[Hg] Roni Dahl MD Work Phone: [facility] [employer] 01-30-2023 15:30-0400 Body temperature 98.7 [degF] Tara Patel Other [employer] Other 01-30-2023 15:30-0400 Body weight 99.79 kg Tara Patel Other [employer] Other 01-30-2023 15:30-0400 Diastolic blood pressure 70 mm[Hg] Tara Patel Other [employer] Other 01-30-2023 15:30-0400 Respiratory rate 20 /min Tara Patel Other [employer] Other 01-30-2023 15:30-0400 SaO2% (BldA) [Mass fraction] 98 % Tara Patel Other [employer] Other 01-30-2023 15:30-0400 Systolic blood pressure 122 mm[Hg] Tara Patel Other [employer] Other 11-25-2022 12:00-0400 Diastolic blood pressure 75 mm[Hg] Salomon Juares MD Work Phone: [employer] 11-25-2022 12:00-0400 SaO2% (BldA) [Mass fraction] 99 % Salomon Juares MD Work Phone: [facility] [employer] 11-25-2022 12:00-0400 Systolic blood pressure 140 mm[Hg] Salomon Juares MD Work Phone: [facility] [employer] 11-25-2022 10:30-0400 Heart rate 59 /min Salomon Juares MD Work Phone: [facility] [employer] 11-25-2022 10:30-0400 Respiratory rate 18 /min Salomon Juares MD Work Phone: [facility] [employer] 11-25-2022 10:05-0400 Body temperature 97.9 [degF] Salomon Juares MD Work Phone: [facility] [employer] 11-25-2022 10:04-0400 Body height 162.6 cm Salomon Juares MD Work Phone: [facility] 11-25-2022 10:04-0400 Body mass index (BMI) [Ratio] 38.16 kg/m2 Salomon Juares MD Work Phone: [facility] 11-25-2022 10:04-0400 Body weight 100.83 kg Salomon Juares MD Work Phone: [facility] 08-28-2022 12:58-0500 Blood Pressure Location Donna Spencer [facility] 08-28-2022 12:58-0500 Body temperature 97.34 [degF] Donna Spencer [facility] 08-28-2022 12:58-0500 Diastolic blood pressure 72 mm[Hg] Donna Spencer [facility] 08-28-2022 12:58-0500 Heart rate 69 /min Donna Spencer [facility] 08-28-2022 12:58-0500 Systolic blood pressure 114 mm[Hg] Donna Doverz [facility] 07-26-2022 08:55-0500 Diastolic blood pressure 69 mm[Hg] Ferrari SALAM [facility] 07-26-2022 08:55-0500 Heart rate 54 /min Ferrari SALAM [facility] 07-26-2022 08:55-0500 Mean blood pressure 84 mm[Hg] Ferrari SALAM [facility] 07-26-2022 08:55-0500 Respiratory rate 13 /min Ferrari SALAM [facility] 07-26-2022 08:55-0500 SaO2% (BldA) [Mass fraction] 97 % Ferrari SALAM [facility] 07-26-2022 08:55-0500 Systolic blood pressure 114 mm[Hg] Ferrari SALAM [facility] 07-26-2022 08:35-0500 Diastolic blood pressure 71 mm[Hg] Ferrari SALAM [facility] 07-26-2022 08:35-0500 Heart rate 55 /min Ferrari SALAM [facility] 07-26-2022 08:35-0500 Mean blood pressure 84 mm[Hg] Ferrari SALAM [facility] 07-26-2022 08:35-0500 Respiratory rate 17 /min Ferrari SALAM [facility] 07-26-2022 08:35-0500 SaO2% (BldA) [Mass fraction] 100 % Ferrari SALAM [facility] 07-26-2022 08:35-0500 Systolic blood pressure 111 mm[Hg] Ferrari SALAM [facility] 07-26-2022 08:30-0500 Diastolic blood pressure 72 mm[Hg] Ferrari SALAM [facility] 07-26-2022 08:30-0500 Heart rate 71 /min Ferrari SALAM [facility] 07-26-2022 08:30-0500 Mean blood pressure 92 mm[Hg] Ferrari SALAM [facility] 07-26-2022 08:30-0500 Respiratory rate 21 /min Ferrari SALAM [facility] 07-26-2022 08:30-0500 SaO2% (BldA) [Mass fraction] 99 % Ferrari SALAM [facility] 07-26-2022 08:30-0500 Systolic blood pressure 131 mm[Hg] Ferrari SALAM [facility] 07-26-2022 08:20-0500 Body temperature 97.7 [degF] Ferrari SALAM [facility] 07-26-2022 07:14-0500 Blood Pressure Location Ferrari SALAM [facility] 07-26-2022 07:14-0500 Body temperature 97.16 [degF] Ferrari SALAM [facility] 07-17-2022 09:53-0500 Diastolic blood pressure 60 mm[Hg] MD Roni Dahl Work Phone: [facility] 07-17-2022 09:53-0500 Heart rate 60 /min MD Roni Dahl Work Phone: [facility] 07-17-2022 09:53-0500 Respiratory rate 16 /min MD Roni Dahl Work Phone: [facility] 07-17-2022 09:53-0500 SaO2% (BldA) [Mass fraction] 97 % MD Roni Dahl Work Phone: [facility] 07-17-2022 09:53-0500 Systolic blood pressure 120 mm[Hg] MD Roni Dahl Work Phone: [facility] 07-17-2022 09:06-0500 Inhaled oxygen flow rate 3 L/min MD Roni Dahl Work Phone: [facility] 07-17-2022 08:22-0500 Body height 162.56 cm MD Roni Dahl Work Phone: [facility] 07-17-2022 08:22-0500 Body weight 99.79 kg MD Roni Dahl Work Phone: [facility] 07-12-2022 09:28-0500 Body temperature 97.7 [degF] Alma Mao DO Work Phone: [facility] 07-12-2022 09:21-0500 Body height 162.6 cm Alma Mao DO Work Phone: [facility] 07-12-2022 09:21-0500 Body mass index (BMI) [Ratio] 37.93 kg/m2 Alma Mao DO Work Phone: [facility] 07-12-2022 09:21-0500 Body weight 100.25 kg Alma Mao DO Work Phone: [facility] 07-12-2022 09:21-0500 Diastolic blood pressure 71 mm[Hg] Alma Mao DO Work Phone: [facility] 07-12-2022 09:21-0500 Heart rate 72 /min Alma Mao DO Work Phone: [facility] 07-12-2022 09:21-0500 Respiratory rate 18 /min Alma Mao DO Work Phone: [facility] 07-12-2022 09:21-0500 SaO2% (BldA) [Mass fraction] 98 % Alma Mao DO Work Phone: [facility] 07-12-2022 09:21-0500 Systolic blood pressure 128 mm[Hg] Alma Mao DO Work Phone: [facility] 07-10-2022 14:16-0500 Blood Pressure Location Donna Spencer [facility] 07-10-2022 14:16-0500 Body temperature 96.8 [degF] Donna Spencer [facility] 07-10-2022 14:16-0500 Diastolic blood pressure 80 mm[Hg] Donna Spencer [facility] 07-10-2022 14:16-0500 Heart rate 64 /min Donna Spencer [facility] 07-10-2022 14:16-0500 Systolic blood pressure 119 mm[Hg] Donna Spencer [facility] 07-03-2022 11:10-0500 Diastolic blood pressure 73 mm[Hg] MD Roni Dahl Work Phone: [facility] 07-03-2022 11:10-0500 Heart rate 56 /min MD Roni Dahl Work Phone: [facility] 07-03-2022 11:10-0500 Respiratory rate 20 /min MD Roni Dahl Work Phone: [facility] 07-03-2022 11:10-0500 SaO2% (BldA) [Mass fraction] 97 % MD Roni Dahl Work Phone: [facility] 07-03-2022 11:10-0500 Systolic blood pressure 136 mm[Hg] MD Roni Dahl Work Phone: [facility] 07-03-2022 10:28-0500 Inhaled oxygen flow rate 3 L/min MD Roni Dahl Work Phone: [facility] 07-03-2022 09:32-0500 Body height 162.56 cm MD Roni Dahl Work Phone: [facility] 07-03-2022 09:32-0500 Body weight 99.79 kg MD Roni Dahl Work Phone: [facility] 05-29-2022 10:13-0500 Diastolic blood pressure 72 mm[Hg] MD Roni Dahl Work Phone: [facility] 05-29-2022 10:13-0500 Heart rate 62 /min MD Roni Dahl Work Phone: [facility] 05-29-2022 10:13-0500 Respiratory rate 20 /min MD Roni Dahl Work Phone: [facility] 05-29-2022 10:13-0500 SaO2% (BldA) [Mass fraction] 97 % MD Roni Dahl Work Phone: [facility] 05-29-2022 10:13-0500 Systolic blood pressure 139 mm[Hg] MD Roni Dahl Work Phone: [facility] 05-29-2022 09:23-0500 Inhaled oxygen flow rate 3 L/min MD Roni Dahl Work Phone: [facility] 05-29-2022 08:38-0500 Body height 162.56 cm MD Roni Dahl Work Phone: [facility] 05-29-2022 08:38-0500 Body weight 100.24 kg MD Roni Dahl Work Phone: [facility] 04-09-2022 11:15-0400 Body weight 101.15 kg Yanelis Garcia Other [facility] [employer] Other 03-27-2022 09:14-0400 Diastolic blood pressure 62 mm[Hg] MD Roni Dhal Work Phone: [facility] 03-27-2022 09:14-0400 Heart rate 57 /min MD Roni Dahl Work Phone: [facility] 03-27-2022 09:14-0400 Respiratory rate 16 /min MD Roni Dahl Work Phone: [facility] 03-27-2022 09:14-0400 SaO2% (BldA) [Mass fraction] 96 % MD Roni Dahl Work Phone: [facility] 03-27-2022 09:14-0400 Systolic blood pressure 121 mm[Hg] MD Roni Dahl Work Phone: [facility] 03-27-2022 08:36-0400 Inhaled oxygen flow rate 3 L/min MD Roni Dahl Work Phone: [facility] 03-27-2022 07:55-0400 Body height 165.1 cm MD Roni Dahl Work Phone: [facility] 03-27-2022 07:55-0400 Body weight 100.24 kg MD Roni Dahl Work Phone: [facility] 10-14-2021 11:07-0400 Body mass index (BMI) [Ratio] 38.77 kg/m2 Lexy Tapia MD Work Phone: [facility] 10-14-2021 11:07-0400 Body temperature 98.2 [degF] Lexy Tapia MD Work Phone: [facility] 10-14-2021 11:07-0400 Body weight 105.69 kg Lexy Tapia MD Work Phone: [facility] 10-14-2021 11:07-0400 Diastolic blood pressure 73 mm[Hg] Lexy Tapia MD Work Phone: [facility] 10-14-2021 11:07-0400 Heart rate 67 /min Lexy Tapia MD Work Phone: [facility] 10-14-2021 11:07-0400 Respiratory rate 16 /min Lexy Tapia MD Work Phone: [facility] 10-14-2021 11:07-0400 SaO2% (BldA) [Mass fraction] 98 % Lexy Tapia MD Work Phone: [facility] 10-14-2021 11:07-0400 Systolic blood pressure 147 mm[Hg] Lexy Tapia MD Work Phone: [facility] 11-27-2020 14:00-0400 Respiratory rate 18 /min Darryl Sandoval MD Work Phone: [facility] Work Phone: 11-27-2020 09:32-0400 SaO2% (BldA) [Mass fraction] 96 % Darryl Sandoval MD Work Phone: [facility] Work Phone: 11-27-2020 09:31-0400 Body temperature 98.1 [degF] Darryl Sandoval MD Work Phone: [facility] Work Phone: 11-27-2020 09:31-0400 Diastolic blood pressure 78 mm[Hg] Darryl Sandoval MD Work Phone: [facility] Work Phone: 11-27-2020 09:31-0400 Heart rate 78 /min Darryl Sandoval MD Work Phone: [facility] Work Phone: 11-27-2020 09:31-0400 Systolic blood pressure 139 mm[Hg] Darryl Sandoval MD Work Phone: [facility] Work Phone: 11-18-2020 09:19-0400 Diastolic blood pressure 57 mm[Hg] Naida Grissom MD Work Phone: [facility] Work Phone: 11-18-2020 09:19-0400 SaO2% (BldA) [Mass fraction] 96 % Naida Grissom MD Work Phone: [facility] Work Phone: 11-18-2020 09:19-0400 Systolic blood pressure 118 mm[Hg] Naida Grissom MD Work Phone: [facility] Work Phone: 11-18-2020 06:45-0400 Body height 165.1 cm Naida Grissom MD Work Phone: [facility] Work Phone: 11-18-2020 06:45-0400 Body mass index (BMI) [Ratio] 37.11 kg/m2 Naida Grissom MD Work Phone: [facility] Work Phone: 11-18-2020 06:45-0400 Body temperature 99.19 [degF] Naida Grissom MD Work Phone: [facility] Work Phone: 11-18-2020 06:45-0400 Body weight 101.15 kg Naida Grissom MD Work Phone: [facility] Work Phone: 11-18-2020 06:45-0400 Heart rate 87 /min Naida Grissom MD Work Phone: [facility] Work Phone: 11-18-2020 06:45-0400 Respiratory rate 18 /min Naida Grissom MD Work Phone: [facility] Work Phone: 03-31-2020 13:48-0400 BMI (Body Mass Index) 38.79 kg/m2 [place] [facility] 03-31-2020 13:48-0400 Body Temperature 98.49 [degF] [facility] [place] 03-31-2020 13:48-0400 Body weight 102.51 kg [facility] [place] 03-31-2020 13:48-0400 BP Diastolic 99 mm[Hg] [facility] 03-31-2020 13:48-0400 BP Systolic 130 mm[Hg] [facility] [place] 03-31-2020 13:48-0400 Height 162.6 cm [facility] [place] 03-31-2020 13:48-0400 Pulse (Heart Rate) 61 /min [facility] 03-31-2020 13:48-0400 Pulse Oximetry 100 % [facility] [place] 03-31-2020 13:48-0400 Respiratory Rate 18 /min [facility] [place] 05-30-2019 06:47-0500 Pulse Oximetry 100 % [facility] [place] 05-30-2019 06:34-0500 BP Diastolic 44 mm[Hg] [facility] [place] 05-30-2019 06:34-0500 BP Systolic 128 mm[Hg] [facility] [place] 05-30-2019 06:00-0500 BMI (Body Mass Index) 39.86 kg/m2 [facility] [place] 05-30-2019 06:00-0500 Body Temperature 98.8 [degF] [facility] 05-30-2019 06:00-0500 Body weight 102.06 kg [facility] [place] 05-30-2019 06:00-0500 Height 160 cm [facility] [place] 05-30-2019 06:00-0500 Pulse (Heart Rate) 83 /min [place] [facility] 05-30-2019 06:00-0500 Respiratory Rate 20 /min Francescojuli Tapia [facility] [place] Encounters Encounter Date Encounter Type Care Provider Facility Start: 02-26-2025 End: 02-26-2025 Patient encounter procedure Obie Hylton MD -Lab [facility] Start: 02-26-2025 End: 02-26-2025 ambulatory Roni Dahl MD Work Phone: [facility] Work Phone: Start: 02-22-2025 End: 02-22-2025 ambulatory Trevon Harris MD Facility:[facility] [place] Start: 02-08-2025 End: 02-08-2025 ambulatory Trevon Harris MD Facility:[facility] Start: 02-05-2025 End: 02-05-2025 Office outpatient visit 15 minutes Georges Barger PA-C Work Phone: [facility] [place] Comment on above: Cough, unspecified t ype (Primary Dx); Sore throat; Nasal congestion Start: 02-05-2025 End: 02-09-2025 ambulatory RONI DAHL [facility] Start: 01-15-2025 End: 01-15-2025 Office outpatient new 30 minutes Christian Lucio PA-C Work Phone: [facility] [place] Comment on above: Bacterial URI (Prima ry Dx); Dermatitis Start: 01-15-2025 End: 01-15-2025 ambulatory CHRISTIAN LUCIO [facility] Start: 12-22-2024 End: 12-22-2024 ambulatory JOHN PAUL MAYFIELD [facility] Start: 12-22-2024 End: 12-22-2024 Subsequent hospital visit by physician Roni Dahl MD Work Phone: [facility] Comment on above: Gross hematuria Start: 11-26-2024 End: 11-26-2024 Bamboo flowsheet Lexy Canales DPM Work Phone: [facility] Start: 11-26-2024 End: 11-26-2024 Bamboo flowsheet Lexy Canales DPM Work Phone: [facility] Start: 11-26-2024 End: 11-26-2024 Office outpatient visit 15 minutes Lexy Canales DPM Work Phone: [facility] Comment on above: Grade 2 ankle sprain (Primary Dx); Ankle instability, right; Right foot drop Start: 11-26-2024 End: 11-26-2024 ambulatory LEXY CANALES Not Available Start: 09-15-2024 End: 09-15-2024 ambulatory LEXY CANALES Not Available Start: 09-10-2024 End: 09-10-2024 Patient encounter procedure Roni Dahl MD Work Phone: [facility] [address] Work Phone: Start: 09-10-2024 End: 09-10-2024 ambulatory Roni Dahl MD Work Phone: [facility] Work Phone: Start: 09-07-2024 End: 09-07-2024 ambulatory Trevon Harris MD Facility:[facility] Start: 08-28-2024 End: 08-28-2024 [facility] Start: 08-28-2024 End: 08-28-2024 Subsequent hospital visit by physician Roni Dahl MD Work Phone: [facility] Comment on above: Essential hypertensi on; Palpitations; Hyperlipidemia, unspecified hyperlipidemia type; Hypothyroidism, unspecified type; Vitamin D deficiency disease Start: 08-27-2024 End: 08-27-2024 ambulatory [facility] Start: 08-27-2024 End: 08-27-2024 Subsequent hospital visit by physician Roni Dahl MD Work Phone: [facility] Comment on above: Mixed incontinence u rge and stress Start: 08-27-2024 End: 08-29-2024 ambulatory [facility] Start: 08-27-2024 End: 08-29-2024 Subsequent hospital visit by physician [facility] Additional [facility] RESPIRATORY THERAPY Comment on above: Essential hypertensi on; Palpitations; Hyperlipidemia, unspecified hyperlipidemia type; Hypothyroidism, unspecified type; Vitamin D deficiency disease Start: 08-24-2024 End: 08-24-2024 ambulatory Trevon Harris MD Facility:[facility] Start: 08-17-2024 End: 08-17-2024 Bamboo flowsheet Lexy Canales DPM Work Phone: [employer] [facility] Start: 08-17-2024 End: 08-17-2024 Bamboo flowsheet Lexy Canales DPM Work Phone: [facility] Start: 08-17-2024 End: 08-17-2024 Office outpatient new 30 minutes Lexy Canales DPM Work Phone: [facility] Comment on above: Grade 2 ankle sprain (Primary Dx); Pain in joint involving right ankle and foot; Right foot pain; Ankle instability, right Start: 08-17-2024 End: 08-17-2024 ambulatory LEXY CANALES Not Available Start: 08-11-2024 End: 08-11-2024 Patient encounter procedure Roni Dahl MD Work Phone: [facility] [address] Work Phone: Start: 08-11-2024 End: 08-11-2024 ambulatory Roni Dahl MD Work Phone: [facility] Work Phone: Start: 07-10-2024 End: 07-10-2024 Emergency department patient visit Lexy Tapia MD Work Phone: [facility] Comment on above: Sprain of right ankl e, unspecified ligament, initial encounter (Primary Dx) Start: 06-24-2024 End: 06-24-2024 Emergency department patient visit Monster Mei MD Work Phone: [facility] Comment on above: COVID-19 virus infec tion (Primary Dx) Start: 06-01-2024 End: 06-01-2024 ambulatory Trevon Harris MD Facility:[facility] Start: 05-18-2024 End: 05-18-2024 ambulatory Trevon Harris MD Facility:[facility] Start: 05-08-2024 End: 05-10-2024 ambulatory RONI DAHL [facility] Start: 05-08-2024 End: 05-10-2024 Subsequent hospital visit by physician [facility] Mammography Room [facility] Mammography Comment on above: Visit for screening mammogram Start: 04-20-2024 End: 04-20-2024 ambulatory Trevon Harris MD Facility:[facility] Start: 04-06-2024 End: 04-06-2024 ambulatory Roni Dahl MD Facility:[facility] Start: 03-23-2024 End: 03-23-2024 ambulatory Roni Dahl MD Facility:[facility] Start: 02-06-2024 End: 02-06-2024 ambulatory MD Roni Dahl Work Phone: [facility] Work Phone: Start: 02-06-2024 End: 02-06-2024 Patient encounter procedure MD Roni Dahl Work Phone: [facility] Work Phone: Start: 12-19-2023 End: 12-19-2023 ambulatory MD Roni Dahl Work Phone: [facility] Work Phone: Start: 12-19-2023 End: 12-19-2023 Patient encounter procedure MD Roni Dahl Work Phone: [facility] [address] Work Phone: Start: 12-12-2023 End: 12-12-2023 ambulatory [facility] DAHL [facility] Start: 11-14-2023 End: 11-14-2023 Emergency department patient visit Jessica Farrar MD Work Phone: [facility] ED Comment on above: Paroxysmal atrial fi brillation (HCC) (Primary Dx) Start: 10-23-2023 End: 10-25-2023 ambulatory REAGAN GIVENS [facility] Start: 10-23-2023 End: 10-23-2023 Emergency department patient visit Lexy Tapia MD Work Phone: [facility] ED Comment on above: New onset atrial fib rillation (HCC) (Primary Dx); Atrial fibrillation with RVR (HCC); History of chronic kidney disease; Symptoms of dehydration; Fluid level behind tympanic membrane of both ears; Acute pansinusitis, recurrence not specified; Nausea vomiting and diarrhea Start: 10-22-2023 End: 10-24-2023 ambulatory RONI DAHL [facility] Start: 10-01-2023 End: 10-01-2023 ambulatory RONI DAHL [facility] Start: 09-19-2023 End: 09-19-2023 ambulatory MD Roni Dahl Work Phone: [facility] Work Phone: Start: 09-19-2023 End: 09-19-2023 Patient encounter procedure MD Roni Dahl Work Phone: [facility] [address] Work Phone: Start: 09-16-2023 End: 09-16-2023 ambulatory Davion Olivares Facility:[facility] Start: 09-16-2023 End: 09-16-2023 Patient encounter procedure Davion Talal Kellymini [facility] Start: 07-01-2023 End: 07-01-2023 Emergency department patient visit Monster Mei MD Work Phone: [facility] ED Comment on above: COVID-19 virus infec tion (Primary Dx) Start: 05-27-2023 End: 05-27-2023 ambulatory MD Roni Dahl Work Phone: [facility] Work Phone: Start: 05-27-2023 End: 05-27-2023 Patient encounter procedure MD Roni Dahl Work Phone: [facility] [address] Work Phone: Start: 05-02-2023 End: 05-06-2023 ambulatory MARY SUE [facility] Ambulatory Start: 05-02-2023 End: 05-02-2023 Clinical Support Mary Sue AuD Work Phone: [facility] Comment on above: Sensorineural hearin g loss, bilateral (Primary Dx); Hearing loss, unspecified hearing loss type, unspecified laterality Start: 05-02-2023 End: 05-02-2023 Office outpatient new 45 minutes Grayson Hutchinson DO Work Phone: [facility] Comment on above: Bruxism (teeth grind ing) (Primary Dx); Acute suppurative otitis media of left ear without spontaneous rupture of tympanic membrane, recurrence not specified; ROSETTE on CPAP; Hearing loss, unspecified hearing loss type, unspecified laterality Start: 04-11-2023 End: 04-11-2023 ambulatory XU MARTINEZ [facility] Start: 03-28-2023 End: 03-28-2023 ambulatory LANIE PRINCE [facility] Start: 03-19-2023 End: 03-19-2023 Admission to same day surgery center MD Roni Dahl Work Phone: [facility] Work Phone: Start: 03-19-2023 End: 03-19-2023 ambulatory MD Roni Dahl Work Phone: [facility] Work Phone: Start: 03-14-2023 End: 03-14-2023 ambulatory Yanelis Garcia Other [employer] Other Start: 03-14-2023 Office outpatient vi sit 25 minutes Yanelis Garcia [facility] [place] Start: 03-14-2023 Telephone encounter Yanelis Garcia [facility] Start: 03-13-2023 End: 03-15-2023 Subsequent hospital visit by physician Yanelis Guzman MD Work Phone: [facility] Ultrasound Comment on above: Renal cyst Start: 03-08-2023 End: 03-08-2023 ambulatory Mukul Wilson Other [employer] Other Start: 03-08-2023 Telephone encounter Mukul Wilson [facility] [employer] Start: 03-07-2023 Office outpatient ne w 30 minutes Mukul Wilson [facility] Start: 03-07-2023 End: 03-07-2023 ambulatory MD Roni Dahl Work Phone: [facility] Work Phone: Start: 03-07-2023 End: 03-07-2023 Patient encounter procedure MD Roni Dahl Work Phone: [facility] [place] Work Phone: Start: 03-01-2023 End: 03-01-2023 Emergency department patient visit MD Roni Dahl Work Phone: [facility] Work Phone: Start: 02-28-2023 End: 02-28-2023 ambulatory Ricardo Talal Sarmini Facility:[facility] Start: 02-28-2023 End: 02-28-2023 Patient encounter procedure Ricardo Talal Sarmini [facility] Start: 02-27-2023 End: 03-01-2023 Subsequent hospital visit by physician Roni Dahl MD Work Phone: [facility] Radiology Start: 02-25-2023 End: 02-25-2023 ambulatory Yanelis Garcia Other [employer] Other Start: 02-25-2023 Telephone encounter Yanelis [facility] Start: 02-21-2023 End: 02-21-2023 ambulatory MD Roni Dahl Work Phone: [facility] Work Phone: Start: 02-21-2023 End: 02-21-2023 Patient encounter procedure MD Roni Dahl Work Phone: [facility] [place] Work Phone: Start: 02-14-2023 End: 02-14-2023 ambulatory Yanelis Garcia Other [employer] Other Start: 02-14-2023 Telephone encounter Yanelis [facility] [place] Start: 02-08-2023 End: 02-08-2023 Emergency department patient visit Roni Dahl MD Work Phone: [facility] ED Comment on above: 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, unspecified back pain laterality (Primary Dx) Start: 02-04-2023 End: 02-04-2023 ambulatory Yanelis Garcia Other [employer] Other Start: 02-04-2023 Telephone encounter Yanelis [facility] Start: 01-30-2023 End: 01-30-2023 ambulatory Tara Patel Other [employer] Other Start: 01-30-2023 Office outpatient vi sit 25 minutes Tara Patel [facility] [address] Start: 11-25-2022 End: 11-25-2022 Emergency department patient visit Salomon Juares MD Work Phone: [facility] ED Comment on above: Non-recurrent acute suppurative otitis media of left ear without spontaneous rupture of tympanic membrane (Primary Dx); Acute nonintractable headache, unspecified headache type Start: 08-29-2022 End: 08-31-2022 Subsequent hospital visit by physician [facility] Additional [facility] Radiology Comment on above: Essential hypertensi on; Palpitations; Hypothyroidism, unspecified type; Hyperlipidemia, unspecified hyperlipidemia type; Vitamin D deficiency disease Start: 08-28-2022 End: 08-28-2022 Patient encounter procedure Donna Spencer [facility] Start: 08-21-2022 End: 08-21-2022 ambulatory MD Roni Dahl Work Phone: [facility] Work Phone: Start: 08-21-2022 End: 08-21-2022 Patient encounter procedure MD Roni Dahl Work Phone: [facility] [address] Work Phone: Start: 07-31-2022 End: 07-31-2022 ambulatory Yanelis Garcia Other [employer] Other Start: 07-31-2022 Office outpatient vi sit 15 minutes Yanelis Garcia [facility] [place] Start: 07-31-2022 End: 07-31-2022 Subsequent hospital visit by physician Maria R Malhotra PT [facility] Comment on above: Arrived Start: 07-26-2022 End: 07-26-2022 Patient encounter procedure Vonda HERNANDEZ [facility] Start: 07-17-2022 (Procedure) Short Yanelis Garcia [facility] Medical OutPt Start: 07-17-2022 End: 07-17-2022 Admission to same day surgery center MD Roni Dahl Work Phone: [facility] Work Phone: Start: 07-17-2022 End: 07-17-2022 ambulatory MD Roni Dahl Work Phone: [facility] Work Phone: Start: 07-12-2022 End: 07-12-2022 Emergency department patient visit Alma Mao Work Phone: [facility] ED Comment on above: Acute pharyngitis, u nspecified etiology (Primary Dx) Start: 07-10-2022 End: 07-10-2022 Patient encounter procedure Donna Spencer [facility] Start: 07-03-2022 (Procedure) Short Yanelis Garcia [facility] Medical OutPt Start: 07-03-2022 End: 07-03-2022 Admission to same day surgery center MD Roni Dahl Work Phone: [facility] Work Phone: Start: 07-03-2022 End: 07-03-2022 ambulatory MD Roni Dahl Work Phone: [facility] Work Phone: Start: 06-26-2022 End: 06-26-2022 Patient encounter procedure Donna Spencer [facility] Start: 06-14-2022 End: 06-14-2022 Subsequent hospital visit by physician Maria R Malhotra PT [facility] Therapy Comment on above: Arrived Start: 06-13-2022 End: 06-13-2022 ambulatory Yanelis Garcia Other [employer] Other Start: 06-13-2022 Office outpatient vi sit 25 minutes Yanelis Garcia [facility] [place] Start: 05-29-2022 (Procedure) Short Yanelis Gonzalesjuli [facility] OutPt Start: 05-29-2022 End: 05-29-2022 Admission to same day surgery center MD Roni Dahl Work Phone: [facility] Start: 05-29-2022 End: 05-29-2022 ambulatory MD Roni Dahl Work Phone: [facility] Work Phone: Start: 05-07-2022 End: 05-07-2022 ambulatory MD Roni Dahl Work Phone: [facility] Work Phone: Start: 05-07-2022 End: 05-07-2022 Patient encounter procedure MD Roni Dahl Work Phone: [facility] [address] Start: 05-02-2022 End: 05-02-2022 ambulatory Yanelis Rolonjuli Other [employer] Other Start: 05-02-2022 Office outpatient vi sit 25 minutes Yanelis Garcia [facility] [place] Start: 04-09-2022 End: 04-09-2022 ambulatory Yanelis Garcia Other [employer] Other Start: 04-09-2022 Office outpatient vi sit 25 minutes Yanelis Garcia [facility] [place] Start: 03-27-2022 End: 03-27-2022 Admission to same day surgery center MD Roni Dahl Work Phone: [facility] Start: 03-14-2022 End: 03-14-2022 Patient encounter procedure MD Roni Dahl Work Phone: [facility] Start: 02-22-2022 End: 02-22-2022 Patient encounter procedure MD Roni Dahl Work Phone: [facility] [address] Start: 01-31-2022 End: 02-02-2022 Subsequent hospital visit by physician Rei Mammography Room [facility] Mammography Comment on above: Visit for screening mammogram Start: 12-07-2021 End: 12-07-2021 Patient encounter procedure MD Roni Dahl Work Phone: [facility] Start: 11-30-2021 End: 12-02-2021 Subsequent hospital visit by physician Rei Dig Rad 1 [facility] Radiology Comment on above: H/O repair of right rotator cuff Start: 11-30-2021 End: 12-02-2021 Subsequent hospital visit by physician Roni Dahl MD Work Phone: [facility] Radiology Start: 10-30-2021 End: 10-30-2021 Patient encounter procedure Donna Spencer [facility] Start: 10-26-2021 End: 10-26-2021 Patient encounter procedure Roni Dahl MD Work Phone: [facility] Start: 10-26-2021 End: 10-26-2021 Subsequent hospital visit by physician Roni Dahl MD Work Phone: [facility] Comment on above: Women's annual routi ne gynecological examination; Vaginal burning Start: 10-14-2021 End: 10-14-2021 Emergency department patient visit Lexy Tapia MD Work Phone: [facility] ED Comment on above: Acute cystitis with hematuria (Primary Dx); Vaginal yeast infection Start: 10-11-2021 End: 10-11-2021 Subsequent hospital visit by physician Zo Chen PT Work Phone: [facility] Comment on above: Arrived Start: 10-04-2021 End: 10-04-2021 Subsequent hospital visit by physician Zo Chen PT Work Phone: [facility] Comment on above: Arrived Start: [...] visit by physician Rei Additional Xray At [facility] Radiology Comment on above: History of arthrosco py of right shoulder Start: 06-14-2021 End: 06-14-2021 Subsequent hospital visit by physician Velasquez Martel PTA [facility] Comment on above: Arrived Start: 06-12-2021 End: 06-12-2021 Subsequent hospital visit by physician Rashmi Gacria [facility] Start: 06-12-2021 End: 06-12-2021 [...] by physician Roni Dahl MD Work Phone: [facility] Comment on above: Low hemoglobin Start: 12-09-2020 End: 12-09-2020 Subsequent hospital visit by physician Roni Dahl MD Work Phone: [facility] Comment on above: Low hemoglobin Start: 11-27-2020 End: 11-27-2020 Emergency department patient visit Darryl Sandoval MD Work Phone: [facility] ED Comment on above: Diarrhea, unspecifie d type (Primary Dx); General weakness; Urinary incontinence, unspecified type Start: 11-22-2020 End: 11-22-2020 Subsequent hospital visit by physician Roni Dahl MD Work Phone: [facility] Comment on above: Diarrhea of presumed infectious origin; Intractable vomiting with nausea, unspecified vomiting type Start: 11-18-2020 End: 11-18-2020 Emergency department patient visit Naida Grissom MD Work Phone: [facility] ED Comment on above: Nausea vomiting and diarrhea (Primary Dx) Start: 08-11-2020 End: 08-11-2020 Subsequent hospital visit by physician Roni Dahl [facility] Laboratory Comment on above: Essential hypertensi on; Palpitations; Hypothyroidism, unspecified type; Hyperlipidemia, unspecified hyperlipidemia type; Vitamin D deficiency disease Start: 08-09-2020 End: 08-09-2020 Subsequent hospital visit by physician Roni Dahl [facility] RESPIRATORY THERAPY Comment on above: Essential hypertensi on; Palpitations; Hypothyroidism, unspecified type Start: 06-29-2020 End: 06-29-2020 Subsequent hospital visit by physician [facility] Covid Screening Schedule [facility] Covid Screening Comment on above: Acute recurrent pans inusitis; Fever, unspecified fever cause Start: 03-31-2020 End: 03-31-2020 Subsequent hospital visit by physician Roni Dahl [facility] Laboratory Comment on above: Viral illness; Exposure to COVID-19 virus Start: 03-31-2020 End: 03-31-2020 Emergency department patient visit Lexy Tapia Work Phone: [facility] ED Comment on above: General weakness (Pr imary Dx); YANNA (middle ear effusion), bilateral Start: 11-09-2019 End: 11-11-2019 Subsequent hospital visit by physician [facility] Mammography Room [facility] Mammography Comment on above: Visit for screening mammogram Start: 07-07-2019 End: 07-09-2019 Subsequent hospital visit by physician Roni Dahl MD Work Phone: [facility] RESPIRATORY THERAPY Comment on above: Essential hypertensi on; Pure hypercholesterolemia; Acquired hypothyroidism; Palpitations; Vitamin D deficiency disease Start: 05-30-2019 End: 05-30-2019 Emergency department patient visit Lexy Tapia Work Phone: [facility] ED Comment on above: Acute recurrent fron venkat sinusitis (Primary Dx); Acute middle ear effusion, bilateral Start: 04-23-2019 End: 04-23-2019 Subsequent hospital visit by physician Roni Dahl MD Work Phone: [facility] Comment on above: Diarrhea of presumed infectious origin Start: 03-10-2018 End: 03-10-2018 Patient encounter ANDREWS FISH [facility] Start: 03-10-2018 End: 03-11-2018 Patient encounter ANDREWS FISH [facility] Start: 06-20-2017 End: 06-21-2017 Ambulatory JAMISON OWENS Facility[facility] Procedures Date Procedure Procedure Detail Performing Clinician Start: 12-22-2024 Urnls dip stick/tablet reagent auto microscopy John Paul Clovis Bijan [place] [employer] OPERATOR Work Phone: Start: 08-28-2024 Comprehensive metabolic panel Reagan mcdowell MD Work Phone: Start: 08-28-2024 Lipid panel Reagan Givens MD Work Phone: Start: 08-27-2024 Ecg routine ecg w/least 12 lds w/i&r Reagan Givens MD Work Phone: Start: 07-10-2024 Radex ankle complete minimum 3 views Lexy Tapia MD Work Phone: Start: 06-24-2024 COVID-19, RAPID Monster Mei MD Work Phone: Start: 06-24-2024 Iaad ia streptococcus group a Monster Juarez MD Work Phone: Start: 05-08-2024 Mammography Christian Lucio PA-C Work Phone: Start: 11-14-2023 Basic metabolic panel [...] Radex shoulder complete minimum 2 views Christian Marquiserodriguez Meyer DO Work Phone: Start: 10-26-2021 Urinalysis [...] Phone: Start: 08-11-2020 Assay of magnesium Reagan Field Naida Work Phone: Start: 08-11-2020 Assay of thyroid stimulating hormone tsh Reagan Field Naida Work Phone: Start: 08-11-2020 Blood count complete auto&auto difrntl wbc Reagan Dejan Naida Work Phone: Start: 08-11-2020 Comprehensive metabolic panel Reagan mcdowell Work Phone: Start: 08-11-2020 Lipid panel Reagan Givens Work Phone: Start: 08-11-2020 PATIENT FASTING? Reagan Dejan Givens Work Phone: Start: 08-09-2020 Ecg routine ecg w/least 12 lds w/i&r Reagan Dejan Naida Work Phone: Start: 03-31-2020 Ct head/brain w/o [...] fluoroscopic guidance Donna Spencer Comment on above: RIGHT L2-S1 Start: 10-20-2014 Injection of facet joint using fluoroscopic guidance Donna Spencer Comment on above: BILATERAL L3-S1 LUMBAR FACET Start: 08-11-2014 Local anesthetic facet joint nerve block Donna Spencer Comment on above: Bilateral L3-S1 Start: 03-19-2014 Injection of sacroiliac joint using fluoroscopic guidance Donnaarchana Spencer Comment on above: Bilateral SIJI Start: 03-23-2013 Injection of sacroiliac joint using fluoroscopic guidance Donna Johanna Comment on above: Bilateral SIJI Start: 11-17-2012 Injection of sacroiliac joint using fluoroscopic guidance Donna Spencer Comment on above: Left SIJI Start: 10-13-2012 Injection of sacroiliac joint using fluoroscopic guidance Donna Spencer Comment on above: Right SIJI Start: 04-30-2012 Endoscopic examination of esophagus, stomach and duodenum Donna Spencer Start: 11-16-2011 Epidural injection of lumbar spine using fluoroscopic guidance Donna Spencer Comment on above: Left L5-S1 Start: 10-05-2011 Epidural injection of lumbar spine using fluoroscopic guidance Donna Spencer Comment on above: Left L5-S1 Start: 08-27-2011 Cystourethroscopy with dilation of urethral stricture Donna Spencer Start: 09-29-2010 Catheterization of right heart Donna Neely nmetz Basal cell carcinoma of forehead (disorder) Donna Spencer Decompression of median nerve Donna Spencer Comment on above: RIGHT IN 2002, LEFT 2006 Extraction of cataract Donna Spencer Gastric polypectomy Donna Paintermetz History of repair of musculotendinous cuff of shoulder H/O repair of right rotator cuff Mwh 1 Repair of ankle Donna Hogue tz Repair of hip Donna Spencer Repair of ligament Donna Stei nmetz Comment on above: RIGHT ANKLE Repair of ventral hernia Zaina Spencer Total abdominal hyst erectomy with bilateral salpingo-oophorectomy Donna Spencer Total arthroplasty o f knee, geomedic or polycentric Donna Spencer Comment on above: RIGHT 2005, LEFT 2010 Plan of Treatment Date Care Activity Detail Author Start: 02-27-2034 DTaP/Tdap/Td vaccine (2 - Td or Tdap) DTaP/Tdap/Td vaccine (2 - Td or Tdap) [facility] Start: 01-18-2026 Colon cancer screen colonoscopy Colon cancer screen colonoscopy [place], [place] Start: 01-18-2026 Screening for malignant neoplasm of colon Colon cancer screen colonoscopy [place], [place] Start: 12-23-2025 End: 12-23-2025 Patient encounter procedure 12/23/2025 8:30 AM EDT Office Visit [address] [place] [phone] John Paul Mayfield, [place] [employer] OPERATOR [address] [place] [phone] 1Y f/u [facility] Comment on above: 1Y f/u Start: 08-28-2025 Lipid panel Lipids [facility] Start: 08-20-2025 Depression Monitoring Depression Monitoring [facility] Start: 05-08-2025 Screening for malignant neoplasm of breast Mammogram [facility] Start: 03-17-2025 End: 03-17-2025 Patient encounter procedure 03/17/2025 9:00 AM EDT Office Visit [facility] [address] [place] [phone] Reagan Givens MD [address] [place] [address] [facility] Start: 03-01-2025 Influenza vaccination Influenza Vaccine (#1) [facility] Start: 02-26-2025 Hemolytic complement CH50 level [facility] Start: 02-17-2025 End: 02-17-2025 Patient encounter procedure 02/17/2025 9:20 AM EDT Office Visit [facility] [address] [place] [phone] Roni Dahl MD [address] [place] [address] 6 mos - HTN, Hyperlipidemia, Hypothyroid, gerd, dysthymia [facility] Comment on above: 6 mos - HTN, Hyperlipidemia, Hypothyroid , gerd, dysthymia Start: 11-26-2024 End: 11-26-2024 Patient encounter procedure 11/26/2024 9:30 AM EDT Office Visit [facility] [address] [place] [phone] Lexy Canales DPM [address] [place] [phone] Arrived [facility] Comment on above: Arrived Start: 11-17-2024 End: 11-17-2024 Patient encounter procedure [facility] Comment on above: 1 year f/u, US prior-(make sure we have results, patient will be going out of town) 1 year f/u for blood in the urine, no testing prior per John Paul Start: 09-15-2024 End: 09-15-2024 Patient encounter procedure 09/15/2024 2:15 PM EDT Office Visit [facility] [address] [place] [phone] Lexy Canales DPM [address] [place] [address] [facility] Start: 08-31-2024 End: 08-31-2024 Patient encounter procedure 08/31/2024 9:00 AM EST Office Visit [facility] [address] [place] [phone] Reagan Givens MD [address] [place] [address] 1 year follow up labs ekg cxr [facility] Comment on above: 1 year follow up labs ekg cxr Start: 08-20-2024 Lipid panel Lipids [facility] Start: 08-17-2024 End: 08-17-2024 Patient encounter procedure 08/17/2024 2:00 PM EST Office Visit [facility] [address] [place] [phone] Lexy Canales, DPRobyn [address] [place] [address] Arrived [facility] Comment on above: Arrived Start: 08-13-2024 End: 08-13-2024 Patient encounter procedure 08/13/2024 10:00 AM EST Office Visit [facility] [address] [place] [phone] Roni Dahl MD [address] [place] [address] AWV - 6 mos - HTN, Hyperlipidemia, Hypothyroid, gerd, afib [facility] Comment on above: AWV - 6 mos - HTN, Hyperlipidemia, Hypot hyroid, gerd, afib Start: 08-11-2024 Hemolytic complement CH50 level [facility] Start: 08-06-2024 Depression Monitoring Depression Monitoring [facility] Start: 05-07-2024 End: 05-07-2024 Patient encounter procedure 05/07/2024 9:30 AM EST Office Visit [facility] [address] [place] [phone] Grayson Hutchinson Jr., DO [address] [place] [address] [facility] Start: 05-06-2024 Annual Wellness Visit (Medicare) Annual Wellness Visit (Medicare) [facility] Start: 05-06-2024 Depression Monitoring Depression Monitoring [facility] Start: 05-06-2024 Medicare Wellness Visit Medicare Wellness Visit [facility] Start: 03-23-2024 End: 03-23-2024 Patient encounter procedure 03/23/2024 11:00 AM EDT Office Visit [facility] [address] [place] [address] John Paul Mayfield, [place] [employer] MOVIE OPERATOR [address] [place] [place] [address] 1 year f/u, [place] prior [facility] Comment on above: 1 year f/u, [place] prior Start: 03-20-2024 End: 03-20-2024 Patient encounter procedure 03/20/2024 11:00 AM EDT Office Visit [facility] [address] [place] [address] John Paul Mayfield, [place] [employer]OVIE OPERATOR [address] [place] [address] 1 year f/u, US prior-(make sure we have results, patient will be going out of town) [facility] Comment on above: 1 year f/u, US prior-(make sure we have results, patient will be going out of town) Start: 03-18-2024 End: 03-18-2024 Patient encounter procedure 03/18/2024 1:00 PM EDT Appointment [facility] [address] [place] [address] epic/ sched w/ Anastasiya in office [facility] Comment on above: epic/ sched w/ Anastasiya in office Start: 03-01-2024 COVID-19 Vaccine ( season) COVID-19 Vaccine ( season) [facility] Start: 03-01-2024 COVID-19 Vaccine ( season) COVID-19 Vaccine ( season) [facility] Start: 02-11-2024 End: 02-11-2024 Patient encounter procedure 02/11/2024 8:00 AM EDT [facility] [address] [place] [phone] Roni Dahl MD [address] [place] [address] Appt Reason: Routine Existing Condition Follow Up [facility] Comment on above: Appt Reason: Routine Existing Condition Follow Up Start: 02-06-2024 Dual energy X-ray absorptiometry XR dexa axial skeleton [facility] Start: 02-06-2024 DXA Skeletal system.axial Views for bone density [facility] Start: 12-31-2023 Tetanus vaccination Tetanus: Every 10yrs [facility] Start: 12-19-2023 Hemolytic complement CH50 [facility] Start: 12-12-2023 End: 12-12-2023 Patient encounter procedure 12/12/2023 10:00 AM EDT Office Visit [facility] [address] [place] [address] Reagan Givens MD [address] [place] [address] 3 wk f/u ED tachycardia & event monitor [facility] Comment on above: 3 wk f/u ED tachycardia & event monitor Start: 11-14-2023 End: 11-14-2023 Patient encounter procedure 11/14/2023 10:45 AM EDT Procedure visit [facility] [address] [facility] 2nd [place] [address] Glory Peña PAYenniC [address] [place] [address] [place] [address] urogram [facility] Comment on above: cysto after CT urogram Start: 11-01-2023 Depression Monitoring Depression Monitoring [facility] Start: 03-21-2024 Hemolytic complement CH50 [facility] Start: 09-02-2023 End: 09-02-2023 Patient encounter procedure [facility] Comment on above: 1 yr f/u lab/ekg/ Start: 08-21-2023 Lipid panel Lipids [facility] Start: 08-06-2023 End: 08-06-2023 Patient encounter procedure 08/06/2023 8:40 AM EST [facility] [address] [place] [phone] Roni Dahl MD [address] [place] [address] 3 mos - Hyperlipidemia, depression, Hypothyroid, gerd, insomnia, sleep apnea, arthritis [facility] Comment on above: 3 mos - Hyperlipidemia, depression, Hypo thyroid, gerd, insomnia, sleep apnea, arthritis Start: 05-27-2023 Hemolytic complement CH50 [facility] Start: 05-09-2023 End: 05-09-2023 Patient encounter procedure 05/09/2023 11:30 AM EST Appointment [facility] [address] [phone] SELF REF/PT [facility] [place] [facility] Comment on above: SELF REF/PT Start: 05-06-2023 End: 05-06-2023 [facility] encounter [facility] Comment on above: Return in about 6 months (around 05/03/20 23) for Hyperlipidemia, Hypothyroid, depression, gerd, arthritis and MEDICARE wellness Start: 05-04-2023 Annual Wellness Visit (AWV) Annual Wellness Visit (AWV) [facility] Start: 05-03-2023 Depression Monitoring Depression Monitoring [facility] [employer] Start: 05-03-2023 History and physical examination, annual for health maintenance Wellness Visit [facility] Start: 03-22-2023 End: 03-22-2023 [facility] Comment on above: 3 month f/u, US results Start: 03-20-2023 End: 03-20-2023 Patient encounter procedure 03/20/2023 Office Visit [facility] Start: 03-19-2023 [facility] Start: 03-13-2023 End: 03-13-2023 Patient encounter procedure 03/13/2023 Appointment Radiology Yanelis Guzman MD [address] [place] [address] [facility] Ul[facility] Start: 03-01-2023 COVID-19 Vaccine () COVID-19 Vaccine ( season) [facility] Start: 03-01-2023 Influenza vaccination Sequential Influenza Vaccine (#1) [facility] Start: 01-29-2023 Influenza vaccination Flu vaccine (#1) [facility] Start: 12-21-2022 End: 12-21-2022 Patient encounter procedure 12/21/2022 Office Visit [facility] Start: 10-31-2022 End: 10-31-2022 Patient encounter procedure 10/31/2022 Office Visit Family Medicine Roni Dahl MD [address] [place], [place] [phone] [facility] Start: 09-05-2022 COVID-19 Vaccine (5 - Moderna series) COVID-19 Vaccine (5 - Moderna series) [facility] Start: 09-03-2022 End: 09-03-2022 Patient encounter procedure [facility] Start: 08-29-2022 Lipid panel [facility] Start: 08-29-2022 Thyroid stimulating hormone measurement [facility] Start: 08-21-2022 Bacteria identified in Urine by Culture [facility] Start: 08-21-2022 Hemolytic complement CH50 level [facility] Start: 07-31-2022 End: 07-31-2022 Patient encounter procedure 07/31/2022 Appointment Physical Therapy Maria R Malhotra, PT [facility] Start: 07-17-2022 [facility] Start: 07-03-2022 [facility] Start: 07-03-2022 Radiofrequency destruction of peripheral nerve DH Nerve Radio Frequency (Left) [facility] Start: 05-29-2022 [facility] Start: 05-03-2022 Annual Wellness Visit (AWV) Annual Wellness Visit (AWV) [facility] Start: 05-03-2022 End: 05-03-2022 Patient encounter procedure 05/03/2022 Office Visit Family Medicine Roni Dahl MD [address] [place] [address] [facility] Start: 05-02-2022 Depression Monitoring Depression Monitoring [facility] Start: 03-27-2022 [facility] Start: 03-01-2022 Influenza vaccination Flu vaccine (#1) [facility] Start: 10-31-2021 End: 10-31-2021 Patient encounter procedure 10/31/2021 Appointment Physical Therapy Zo Chen, PT [address] [place] [address] [facility] Start: 10-26-2021 COVID-19 Vaccine (4 - Booster for Moderna series) COVID-19 Vaccine (4 - Booster for Moderna series) [facility] Start: 10-11-2021 End: 10-11-2021 Patient encounter procedure 10/11/2021 Appointment Physical Therapy Zo Chen, PT [address] [place] [address] [facility] Start: 10-09-2021 End: 10-09-2021 Patient encounter procedure 10/09/2021 Appointment Physical Therapy Velasquez Martel PTA [facility] Start: 10-04-2021 End: 10-04-2021 Patient encounter procedure 10/04/2021 Appointment Physical Therapy Zo Chen, PT [address] [place] [address] [facility] Start: 10-02-2021 End: 10-02-2021 [...] Zo Chen, PT [address] [place] [address] [facility] Start: 09-15-2021 End: 09-15-2021 Patient encounter procedure 09/15/2021 Appointment Physical Therapy Velasquez Martel PTA [facility] Start: 09-13-2021 End: 09-13-2021 Patient encounter procedure 09/13/2021 Appointment Physical Therapy Velasquez Martel PTA [facility] Start: 09-08-2021 End: 09-08-2021 Patient encounter procedure 09/08/2021 Appointment Physical Therapy Zo Chen, PT [address] [place] [address] [facility] Start: 09-07-2021 Subsequent hospital visit by physician 09/07/2021 Hospital Encounter Physical Therapy Nancy Nunez [facility] Start: 09-05-2021 End: 09-05-2021 Patient encounter procedure 09/05/2021 Appointment Physical Therapy Velasquez Martel PTA [facility] Start: 09-04-2021 End: 09-04-2021 Patient encounter procedure [facility] Start: 08-31-2021 End: 08-31-2021 Patient encounter procedure 08/31/2021 Appointment Physical Therapy Velasquez Martel PTA [facility] Start: 08-17-2021 Subsequent hospital visit by physician 08/17/2021 Hospital Encounter Physical Therapy Zo Chen, PT [address] [place] [address] [facility] Start: 08-11-2021 Lipid panel Lipid screen [facility] Start: 08-11-2021 Thyroid stimulating hormone measurement TSH testing [facility] Start: 08-11-2021 TSH Qn TSH testing [facility] Work Phone: Start: 08-02-2021 End: 08-02-2021 Patient encounter procedure [facility] Start: 06-29-2021 End: 06-29-2021 Patient encounter procedure 06/29/2021 Appointment Physical Therapy Zo Chen, PT [address] [place] [address] [facility] Start: 06-26-2021 End: 06-26-2021 Patient encounter procedure 06/26/2021 Appointment Physical Therapy Zo Chen, PT [address] [place] [address] [facility] Start: 06-22-2021 End: 06-22-2021 Patient encounter procedure 06/22/2021 Appointment Physical Therapy Jamia Chenissa, PT [address] [place] [address] [facility] Start: 06-20-2021 End: 06-20-2021 Patient encounter procedure 06/20/2021 Appointment Physical Therapy Zo Chen, PT [address] [place] [address] [facility] Start: 06-14-2021 End: 06-14-2021 Patient encounter procedure 06/14/2021 Appointment Physical Therapy Zo Chen, PT [address] [place] [address] [facility] Start: 05-17-2021 End: 05-17-2021 Patient encounter procedure 05/17/2021 Appointment Physical Therapy Velasquez Martel PTA [facility] Start: 05-15-2021 End: 05-15-2021 Patient encounter procedure 05/15/2021 Appointment Physical Therapy Velasquez Martel PTA [facility] Start: 05-10-2021 End: 05-10-2021 Patient encounter procedure 05/10/2021 Appointment Physical Therapy Velasquez Martel PTA [facility] Start: 05-05-2021 End: 05-05-2021 Patient encounter procedure 05/05/2021 Appointment Physical Therapy Zo Chen, PT [address] [place] [address] [phone] Start: 05-02-2021 End: 05-02-2021 Patient encounter procedure 05/02/2021 Office Visit Family Roni Villegas MD [address] [place] [address] [phone] [facility] Start: 05-02-2021 End: 05-02-2021 Patient encounter procedure 05/02/2021 Appointment Physical Therapy Rashmi Garcia [facility] Start: 04-21-2021 Annual Wellness Visit (AWV) Annual Wellness Visit (AWV) [place] Start: 03-31-2021 TSH Qn TSH testing [place] Start: 03-01-2021 Influenza vaccination Flu vaccine (#1) [facility] Work Phone: Start: 02-23-2021 COVID-19 Vaccine (3 - Booster for Moderna series) COVID-19 Vaccine (3 - Booster for Moderna series) [facility] Start: 01-30-2021 End: 01-30-2021 Office Visit 01/30/2021 Office Visit Family Roni Villegas MD [address] [place], [place] [phone] [facility] Start: 01-18-2021 Screening for malignant neoplasm of colon Colon cancer screen colonoscopy [place], [place] Start: 09-06-2020 End: 09-06-2020 Office Visit 09/06/2020 Office Visit Cardiology Reagan Givens MD [address] [place] [address] [phone] [facility] Start: 07-28-2020 End: 07-28-2020 Office Visit [facility] Start: 07-11-2020 End: 07-11-2020 Office Visit 07/11/2020 Office Visit Cardiology Reagan Givens MD [address] [place] [address] [phone] [facility] Start: 07-07-2020 Lipid panel Lipid screen [place] Start: 07-07-2020 Lipid screen Lipid screen [facility] Phone: Start: 07-07-2020 TSH Qn TSH testing [place] Start: 07-07-2020 TSH testing TSH testing [facility] Phone: Start: 05-10-2020 Shingles Vaccine (3 of 3) Shingles Vaccine (3 of 3) [place], [place] Start: 04-14-2020 Annual Wellness Visit (AWV) Annual Wellness Visit (AWV) [place] Start: 04-13-2020 Annual Wellness Visit (AWV) Annual Wellness Visit (AWV) [place] Start: 03-13-2020 Breast cancer screen Breast cancer screen [place] Start: 03-13-2020 Screening for malignant neoplasm of breast Breast cancer screen [place] Start: 01-25-2020 End: 01-25-2020 Office Visit 01/25/2020 Office Visit Family Medicine Roni Dahl MD [address] [place] [address] [phone] [facility] Start: 12-19-2019 Respiratory Syncytial Virus Immunization: Risk, 60-74 Risk, or 75+ (1 - 1-dose 75+ series) Respiratory Syncytial Virus Immunization: Risk, 60-74 Risk, or 75+ (1 - 1-dose 75+ series) [facility] Start: 07-30-2019 End: 07-30-2019 Office Visit 07/30/2019 Office Visit Family Medicine Roni Dahl MD [address] [place] [address] [phone] [facility] Start: 07-27-2019 End: 07-27-2019 Patient encounter procedure 07/27/2019 Office Visit Family Medicine Roni Dahl MD [address] [place], [place] [phone] [facility] Start: 07-13-2019 End: 07-13-2019 Office Visit 07/13/2019 Office Visit Cardiology Reagan Givens MD [address] [place] [address] [facility] Start: 07-09-2019 Lipid screen Lipid [place] Start: 07-09-2019 TSH testing T[place] Start: 12-31-2013 DTaP/Tdap/Td vaccine (1 - Tdap) DTaP/Tdap/Td vaccine (1 - Tdap) [facility] Start: 12-19-2011 Shingles Vaccine (2 of 3) Shingles Vaccine (2 of 3) [place], [place] Start: 2009 Fall risk assessment Falls Risk Assessment [facility] Start: 2004 Respiratory Syncytial Virus (RSV) or age 60 yrs+ (1 - 1-dose 60+ series) Respiratory Syncytial Virus (RSV) or age 60 yrs+ (1 - 1-dose 60+ series) [facility] Start: 1984 Screening for malignant neoplasm of breast Mammogram [facility] Start: 12-19-1963 DTaP/Tdap/Td vaccine (1 - Tdap) DTaP/Tdap/Td vaccine (1 - Tdap) [place] Start: 1962 Hepatitis C screening [facility] Start: 1960 COVID-19 Vaccine (1 of 2) COVID-19 Vaccine (1 of 2) [place] Start: 1956 Depression screening using PHQ-9 (Patient Health Questionnaire 9) score [facility] Start: 12-19-1955 DTaP/Tdap/Td vaccine (1 - Tdap) DTaP/Tdap/Td vaccine (1 - Tdap) [place], [place] Start: 1944 Hepatitis C screen Hepatitis C screen [place] Start: 1944 Hepatitis C screening Hepatitis C screen [facility] Start: 1944 Screening for osteoporosis Dexa Scan [facility] Complement C3 [Mass/volume] in Serum or Plasma [facility] Complement C3 [Mass/volume] in Serum or Plasma [facility] Complement C3 [Mass/volume] in Serum or Plasma [facility] Complement C3 [Mass/volume] in Serum or Plasma [facility] Complement C3 [Mass/volume] in Serum or Plasma [facility] [facility] [Mass/volume] in Serum or Plasma [facility] Complement C4 [Mass/volume] in Serum or Plasma [facility] Complement C4 [Mass/volume] in Serum or Plasma [facility] Complement C4 [Mass/volume] in Serum or Plasma [facility] Complement C4 [Mass/volume] in Serum or Plasma [facility] Complement C4 [Mass/volume] in Serum or Plasma [facility] Complement C4 [Mass/volume] in Serum or Plasma [facility] End: 06-29-2020 COVID-19 COVID-19 Lab Routine Once for 1 Occurrences starting 06/29/2020 until 06/29/2020 [place] Comment on above: Once for 1 Occurrences starting 06/29/20 20 until 06/29/2020 COVID-19 COVID-19 Lab Rou dane 06/29/2020 11:25 AM EST [place] End: 06-12-2021 COVID-19 [facility] Work Phone: Comment on above: 1 Occurrences starting 06/12/2021 until 06/12/2021 End: 03-31-2020 Covid-19 Ambulatory Covid-19 Ambulatory Lab Routine Viral illness Exposure to COVID-19 virus 1 Occurrences starting 03/31/2020 until 03/31/2020 [facility] on above: 1 Occurrences starting 03/31/2020 until 03/31/2020 Covid-19 Ambulatory Covid-19 Amb ulatory Lab Routine Viral illness Exposure to COVID-19 virus 03/31/2020 1:26 PM EDT [facility] WO Contrast CT Head WO C ontrast Imaging STAT 11/25/2022 10:53 AM EDT [employer] Phone: CT SINUS WO CONTRAST CT SINUS WO CONTRAST Imaging STAT 11/25/2022 10:55 AM EDT [employer] Phone: End: 10-26-2021 Culture, Genital [employer] Phone: Comment on above: 1 Occurrences starting 10/26/2021 until 10/26/2021 End: 11-18-2020 Culture, Urine Culture, Urine Microbiology Routine Once for 1 Occurrences starting 11/18/2020 until 11/18/2020 [employer] Phone: Comment on above: Once for 1 Occurrences starting 11/19/19 21 until 11/18/2020 Culture, Urine Culture, Urine Microbiology Routine 11/18/2020 8:31 AM EDT [employer] Phone: End: 10-14-2021 Culture, Urine [employer] Phone: Comment on above: Once for 1 Occurrences starting 10/15/19 until 10/14/2021 End: 08-27-2024 Culture, Urine [employer] Comment on above: 1 Occurrences starting 08/27/2024 until 08/27/2024 End: 10-26-2021 Cytopathology procedure, preparation of smear, genital source [facility] Lab Routine Women's annual routine gynecological examination 1 Occurrences starting 10/26/2021 until 10/26/2021 [employer] Phone: Comment on above: 1 Occurrences starting 10/26/2021 until 10/26/2021 End: 05-08-2024 DBT Breast - bilateral screening [employer] Comment on above: 1 Occurrences starting 05/08/2024 until 05/08/2024 EKG 12 Lead [employer] Phone: EKG 12 Lead EKG 12 Lead ECG Routine Essential hypertension Palpitations Hypothyroidism, unspecified type Hyperlipidemia, unspecified hyperlipidemia type Vitamin D deficiency disease 08/29/2021 7:22 AM EST [employer] Phone: EKG 12 Lead EKG 12 Lead ECG STAT 10/23/2023 9:56 AM EDT [facility] EKG 12 Lead EKG 12 Lead ECG STAT 10/23/2023 12:15 PM EDT [facility] EKG 12 Lead EKG 12 Lead ECG Routine 11/14/2023 6:42 PM EDT [facility] EKG 12 Lead EKG 12 Lead ECG Routine Essential hypertension Palpitations Hyperlipidemia, unspecified hyperlipidemia type Hypothyroidism, unspecified type Vitamin D deficiency disease 08/27/2024 10:48 AM EST [employer] End: 11-27-2020 Gastrointestinal Panel, Molecular Gastrointestinal Panel, Molecular Microbiology Routine One Time for 1 Occurrences starting 11/27/2020 until 11/27/2020 [employer] Phone: Comment on above: One Time for 1 Occurrences starting 10/31 until 11/27/2020 Gastrointestinal Urban el, Molecular Gastrointestinal Panel, Molecular Microbiology STAT 11/27/2020 11:00 AM EDT [employer] Phone: End: 11-09-2019 ANA DIGITAL SCREEN W OR WO CAD BILATERAL ANA DIGITAL SCREEN W OR WO CAD BILATERAL Imaging Routine Visit for screening mammogram 1 Occurrences starting 11/09/2019 until 11/09/2019 [facility] Comment on above: 1 Occurrences starting 11/09/2019 until 11/09/2019 ANA DIGITAL SCREEN W OR WO CAD BILATERAL ANA DIGITAL SCREEN W OR WO CAD BILATERAL Imaging Routine Visit for screening mammogram 11/09/2019 11:37 AM EDT [facility] End: 01-20-2021 ANA WU DIGITAL SCREEN BILATERAL ANA WU DIGITAL SCREEN BILATERAL Imaging Routine Screening mammogram, encounter for 1 Occurrences starting 01/20/2021 until 01/20/2021 [facility] Work Phone: Comment on above: 1 Occurrences starting 01/20/2021 until 01/20/2021 ANA WU DIGITAL SCR EEN BILATERAL ANA WU DIGITAL SCREEN BILATERAL Imaging Routine Screening mammogram, encounter for 01/20/2021 8:26 AM EDT [facility] Work Phone: Patient Education [facility] Work Phone: Patient referral [facility] Work Phone: End: 08-27-2024 XR Chest 2 Views [facility] Comment on above: 1 Occurrences starting 08/27/2024 until 08/27/2024 XR CHEST STANDARD (2 VW) XR CHES T STANDARD (2 VW) Imaging STAT 05/30/2019 6:19 AM [facility] [place], [place] Immunizations Immunization Date Immunization Notes Care Provider [facility] 03-31-2024 Seasonal trivalent influenza vaccine, adjuvanted, preservative free [facility] 03-31-2024 influenza virus vaccine, unspecified formulation Christian Lucio PA-C Work Phone: [facility] 05-06-2023 Influenza, FLUAD, (a ge 65 y+), Adjuvanted, 0.5mL Monster Mei MD Work Phone: [facility] 05-08-2022 SARS-CoV-2 (COVID-19 ) [id number] Donna Spencer [facility] 05-03-2022 influenza virus vaccine, unspecified formulation Donna Spencer [facility] Comment on above: Result Comment: 2021: VIS DATE: 02/03/2021 05-03-2022 Influenza, FLUAD, (a ge 65 y+), Adjuvanted, 0.5mL Maria R Malhotra PT [facility] Work Phone: 06-27-2021 COVID-19, Moderna, Booster, PF, 50mcg/0.25ml Mwh Mw [facility] Phone: 05-02-2021 Influenza, Quadv, adjuvanted, 65 yrs +, IM, PF (Fluad) Rashmi Garcia [facility] 08-26-2020 COVID-19, Moderna, Primary or Immunocompromised, PF, 100mcg/0.5mL Mwh 1 [facility] Phone: 07-29-2020 COVID-19, Moderna, Primary or Immunocompromised, PF, 100mcg/0.5mL Mwh 1 [facility] Phone: 05-12-2020 zoster vaccine recombinant Mthz Schedule [facility], [place] 03-15-2020 influenza virus vaccine, unspecified formulation Maria R Malhotra PT [facility] Work Phone: 03-15-2020 Influenza, High-dose , Quadv, 65 yrs +, IM (Fluzone) Mthz Schedule [facility] 03-15-2020 influenza, injectabl e, quadrivalent, preservative free [facility] 03-15-2020 zoster vaccine recombinant [facility], [place] 04-14-2019 influenza virus vaccine, unspecified formulation Donnaarchana Spencer [facility] Comment on above: Result Comment: 2021: VIS DATE: 02/12/2019 04-14-2019 influenza, injectabl e, quadrivalent, preservative free [facility], [place] 04-07-2018 influenza virus vaccine, unspecified formulation Donnaarchana JangJohanna [facility] Comment on above: Result Comment: 2021: VIS DATE: 02/04/2015 04-07-2018 influenza, injectabl e, quadrivalent, preservative free [facility], [place] 04-10-2017 influenza virus vaccine, unspecified formulation [facility] 05-14-2016 influenza, high dose seasonal, preservative-free [facility] 03-01-2016 pneumococcal conjuga te vaccine, 13 valent [facility] 04-12-2015 influenza virus vaccine, unspecified formulation [facility] 04-24-2014 influenza virus vaccine, unspecified formulation [facility] 04-24-2014 influenza, whole Donna Botello etz [facility] 12-30-2013 Td, unspecified formulation [facility] 12-30-2013 tetanus and diphther ia toxoids, adsorbed, preservative free, for adult use (2 Lf of tetanus toxoid and 2 Lf of diphtheria toxoid) Donna Spencer [facility] 12-30-2013 tetanus and diphther ia toxoids, adsorbed, preservative free, for adult use (5 Lf of tetanus toxoid and 2 Lf of diphtheria toxoid) Monster Mei MD Work Phone: [facility] 07-17-2013 influenza virus vaccine, unspecified formulation [facility] 07-17-2013 influenza, whole Donan Botello etz [facility] 10-24-2011 zoster vaccine, live [place], [place] 03-31-2011 pneumococcal polysaccharide vaccine, 23 valent [place], [place] Payers Date Payer Category Payer Self-pay [id number] 2023 Managed Care [facility] (unspecified) [employer] [id number] 2022 Private Health Insurance [id number] .[id number]. 2.7.3.476341.315 2020 Private Health Insurance CLI [id number] 1.2.840.925107.1.13.239. 2.7.3.775438.315 2020 Private Health Insurance CLI [id number] 1.2.840.799813.1.13.239. 2.7.3.085472.315 2014 Medicare MEDICARE MEDICAR E PART A AND B xxxxxxxxxxx 2014-Present [phone] [address] [address] [place] [address] xxxxxxxxxxx 1.2.840.386202.1.13.239. 2.7.3.144807.315 2014 Unknown [facility] xxxxxxxxxx 2014-Present [phone] [address] [place] [address] xxxxxxxxxx 1.2.840.475578.1.13.239. 2.7.3.382966.315 2014 Unknown [id number] 1.2.840.640409.1.13.239. 2.7.3.771749.315 2009 Medicare 1.2.840.411432. 1.13.385. 2.7.3.046927.315 2009 Medicare [id number] 1.2.840.347453.1.13.239. 2.7.3.107667.315 1944 Unknown [id number] 2.16.840.1.102362.3.579. 2.903 1944 Unknown [id number] 2.16.840.1.449624.3.579. 2.903 1944 Unknown [id number] 2.16.840.1.823246.3.579. 2.727 1944 Unknown [id number] 2.16.840.1.410476.3.579. 2.727 1944 Unknown [id number] 2.16.840.1.079825.3.579. 2.174 1944 Unknown [id number] 2.16.840.1.046674.3.579. 2.174 1944 Unknown [id number] 2.16.840.1.798201.3.579. 2.174 1944 Unknown [id number] 2.16.840.1.295855.3.579. 2.174 1944 Unknown [id number] 2.16.840.1.747694.3.579. 2.174 1944 Unknown [id number] 2.16.840.1.493971.3.579. 2.174 1944 Unknown [id number] 2.16.840.1.400842.3.579. 2.174 1944 Unknown [id number] 2.16.840.1.250811.3.579. 2.174 1944 Unknown [id number] 2.16.840.1.459710.3.579. 2.174 1944 Unknown [id number] 2.16.840.1.545899.3.579. 2.174 1944 Unknown [id number] 2.16.840.1.399697.3.579. 2.174 1944 Unknown [id number] 2.16.840.1.360300.3.579. 2.174 1944 Unknown [id number] 2.16.840.1.360907.3.579. 2.174 1944 Unknown [id number] 2.16.840.1.617665.3.579. 2.174 1944 Unknown [id number] 2.16.840.1.278332.3.579. 2.174 1944 Unknown [id number] 2.16.840.1.579973.3.579. 2.1259 1944 Unknown [id number] 2.16.840.1.479555.3.579. 2.1259 1944 Unknown [id number] 2.16.840.1.952901.3.579. 2.1259 1944 Unknown [id number] 2.16.840.1.132610.3.579. 2.173 1944 Unknown [id number] 2.16.840.1.431577.3.579. 2. 1944 Unknown [id number] 2.16.840.1.511070.3.579. 2.3 1944 Unknown [id number] 2.16.840.1.711363.3.579. 2. 1944 Unknown [id number] 2.16.840.1.444454.3.579. 2. 1944 Unknown [id number] 2.16.840.1.179262.3.579. 2.196 1944 Unknown [id number] 2.16.840.1.849533.3.579. 2.196 1944 Unknown [id number] 2.16.840.1.181528.3.579. 2.196 1944 Unknown [id number] 2.16.840.1.654089.3.579. 2.196 1944 Unknown [id number] 2.16.840.1.196197.3.579. 2.196 1944 Unknown [id number] 2.16.840.1.868675.3.579. 2. 1944 Unknown [id number] 2.16.840.1.953404.3.579. 2.196 1944 Unknown [id number] 2.16.840.1.009359.3.579. 2.196 Medicare supplementa l policy (as second payer) [employer]ET[employer] 1.2.840.681410.1.13.385. 2.7.9.114123.310.315 Unknown [id number] 2.16.840.1.044506.3.579. 2.531 Unknown [id number] 2.16.840.1.331224.3.579. 2.531 Unknown [id number] 2.16.840.1.156634.3.579. 2.531 Social History Date Type Detail Facility Start: 05-30-2019 End: 03-14-2023 Tobacco smoking status NHIS Never smoker [facility] Start: 05-30-2019 End: 11-30-2024 Alcohol intake Current non-drinker of alcohol (finding) [place], [place] Start: 1945 Sex Assigned At Not on file [place] Start: 03-31-2020 End: 05-02-2023 Tobacco use and exposure Never used [place] Exposure to SARS-CoV-2 (event) Yes [place] Start: 10-04-2021 End: 07-12-2022 Exposure to SARS-CoV-2 (event) Not sure [facility] Start: 11-22-2020 End: 09-03-2022 History SDOH Financial 5 [facility] Work Phone: Start: 11-22-2020 End: 09-03-2022 History SDOH Food Worry 1 [facility] Work Phone: Start: 1945 Sex Assigned At Female [facility] Work Phone: Start: 04-14-2019 End: 02-05-2025 Alcohol intake No [facility] [place], [place] Tobacco smoking status Never [facility] Start: 09-03-2022 End: 11-25-2022 History SDOH Alcohol Frequency 2 [facility] Work Phone: Start: 11-25-2022 History SDOH Alcohol Std Drinks 0 [facility] Work Phone: Start: 11-25-2022 End: 02-05-2025 History of Social function [facility] How often to you hav e a drink containing alcohol? Monthly or less [facility] How often do you hav e 6 or more drinks on 1 occasion? Never [facility] (I/We) worried whether (my/our) food would run out before (I/we) got money to buy more. Never true [facility] At any time in the past 12 months, were you homeless or living in care home [including now]? No [facility] Start: 01-27-2021 Gender identity Identifies as female gender (finding) [facility] Start: 04-13-2020 Sexual orientation Heterosexual (fin ding) [facility] Start: 05-02-2023 End: 02-05-2025 Alcohol intake Ex-drinker (finding) [facility] Start: 08-10-2012 End: 08-12-2024 Sex Female (finding) [facility] Start: 02-03-2023 End: 11-26-2024 Alcoholic beverage intake Lifetime non-drinker (finding) [facility] Start: 02-03-2023 Alcohol Comment caffeine: 1-2 cups per day coffee [facility] NEGATED: Highlighted rowStart: MUNAF History of tobacco use Passive smoker [facility] Medical Equipment Procedure Code Equipment Code Equipment Origin al Text Equipment Identifier Dates Surgical procedure, using tension free vaginal tape, for stress incontinence [id number] [facility] Start: 06-03-2019 Surgical procedure, using tension free vaginal tape, for stress incontinence [id number] FDA Start: 06-03-2019 Surgical procedure, using tension free vaginal tape, for stress incontinence [id number] FDA Start: 06-03-2019 Surgical procedure, using tension free vaginal tape, for stress incontinence [id number] FDA Start: 06-03-2019 Surgical procedure, using tension free vaginal tape, for stress incontinence [id number] FDA Start: 06-03-2019 Surgical procedure, using tension free vaginal tape, for stress incontinence [id number] FDA Start: 06-03-2019 Surgical procedure, using tension free vaginal tape, for stress incontinence [id number] FDA Start: 06-03-2019 Surgical procedure, using tension free vaginal tape, for stress incontinence [id number] FDA Start: 06-03-2019 Surgical procedure, using tension free vaginal tape, for stress incontinence [id number] FDA Start: 06-03-2019 Surgical procedure, using tension free vaginal tape, for stress incontinence [id number] FDA Start: 06-03-2019 Surgical procedure, using tension free vaginal tape, for stress incontinence [id number] FDA Start: 06-03-2019 Surgical procedure, using tension free vaginal tape, for stress incontinence [id number] FDA Start: 06-03-2019 Surgical procedure, using tension free vaginal tape, for stress incontinence [id number] FDA Start: 06-03-2019 Surgical procedure, using tension free vaginal tape, for stress incontinence [id number] FDA Start: 06-03-2019 Surgical procedure, using tension free vaginal tape, for stress incontinence [id number] FDA Start: 06-03-2019 Surgical procedure, using tension free vaginal tape, for stress incontinence [id number] FDA Start: 06-03-2019 Surgical procedure, using tension free vaginal tape, for stress incontinence [id number] FDA Start: 06-03-2019 Surgical procedure, using tension free vaginal tape, for stress incontinence [id number] FDA Start: 06-03-2019 {01}[id number] 7{17}[id number]{10}[id number] FDA Start: 07-28-2021 Goals Date Patient Goal Desired Activity /State Personal health goal Functional Status Date Assessment Result Facility 09-16-2023 Functional Status N/A [facility] 02-28-2023 Functional Status N/A [facility] 08-28-2022 Functional Status N/A [facility] 07-26-2022 Functional Status N/A [facility] 07-10-2022 Functional Status N/A [facility] Clinical Notes 11-18-2020 to 02-05-2025 Georges Barger PA-C - 02/05/2025 9:55 AM Christian Enriquez PA-C - 01/15/2025 9:54 AM Radha Canales DPM - 11/26/2024 9:30 AM Radha Canales DPM - 08/17/2024 2:00 PM EST Note Date & Type Note Facility 02-05-2025 Note Patient Name: [facility] Location: [address] Date Of : Date Of Visit: 1945 02/05/2025 MRN# Provider: [id number] Georges Barger PA-C Chief Complaint Patient presents [...] been dictated. This dictation was generated using [employer] voice recognition software. Please excuse any grammatical [...] Placed (more content not included)... [facility] 02-05-2025 History of Present illness Narrative Images from the original note were not included. Patient Name: [facility] Location: [place] Jane Ora Rios [address] [place] [phone] Date Of : Date Of Visit: 1945 02/05/2025 MRN# Provider: [id number] Georges Barger PA-C Chief Complaint Patient presents [...] been dictated. This dictation was generated using [employer] voice recognition software. Please excuse any grammatical [...] for this visit. documented in this encounter [facility] 01-15-2025 Note [facility] Name[facility] Location: Mary Jane Rios [address] [place] [phone] Date Of : Date Of Visit: 1945 01/15/2025 MRN# Provider: [id number] Christian Lucio PA-C Chief Complaint Patient presents [...] wilner (more content not included)... [facility] 01-15-2025 History of Present illness Narrative Images from the original note were not included. Patient Name: [facility] Location: [address] [phone] Date Of : Date Of Visit: 1945 01/15/2025 MRN# Provider: [id number] Christian Lucio PA-C Chief Complaint Patient presents [...] for this visit. documented in this encounter [facility] 11-26-2024 History of Present illness Narrative [...] planned and reviewed documented in this encounter [facility] 08-17-2024 History of Present illness Narrative Mary Jane Rios is a 78 y.o. female presents with chief complaint of Ankle Pain (Rgt Ankle pain) HPI: HPI Pt states she sprained rgt ankle 07/07/2024 but does not know how it happened. 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 She wore this for 3 weeks. She Wraps with bang bandage now. Pain 4-910 She is doing exercises on her own [...] until gait normal documented in this encounter [facility] 07-10-2024 Note PROCEDURE: XR ANKLE RIGHT (MIN 3 VIEWS) HISTORY: ankle pain COMPARISON: None. FINDINGS: BONES:No acute fracture, dislocation, or joint space narrowing. Small corticated ossifications adjacent the tip of the medial and lateral malleolar line compatible with sequela of remote injury. Large degenerative calcaneal plantar spur. SOFT TISSUES:No visible soft tissue swelling. EFFUSION:None visible. OTHER: Negative. [facility] 07-10-2024 Note PROCEDURE: XR ANKLE RIGHT (MIN [...] by: Bello Leal MD 07/10/24 Final result [facility] 06-24-2024 Hospital Discharge instructions Monster Mei MD - 06/24/2024 6:20 PM EST Vitamin D3 4000 units daily x 7 days Vitamin C 1000 mg Aspirin 81 mg daily The following attachments cannot be sent through Care Everywhere.COVID-19: High Risk for Serious Illness: General Info (Cymro)documented in this encounter [facility] 10-23-2023 Hospital Discharge instructions Lexy Tapia MD [...] and blood thinners. Close follow-up with your whirley operator, otherwise follow-up with your PCP, return to ER if any symptoms change or further concerns. Stay well-hydrated with water or nonsugar sports drinks, Zofran ODT for any nausea as needed, I would advise not to use anything for the diarrhea at this time save soft toilet paper or baby wipes as needed. The following attachments cannot be sent through Care Everywhere.Serous Otitis Media (Cymro)Atrial Fibrillation (Cymro)Direct Oral Anticoagulants: Non-Vitamin K Antagonist (Cymro)Oral Rehydration (Cymro)documented in this encounter [facility] 09-17-2023 Note [id number] [facility] 09-16-2023 Hospital Discharge instructions Patient Education [...] 3 times a day. General instructions Take ajvp-yti-bwgzbtp and prescription medicines only as told by [...] provider. Document Revised: 12/27/2021 Document Reviewed: 12/27/2021 [employer] Patient Education 2022 [employer]. 09/16/2023 14:59:47 Diverticulosis MAGR (CUSTOM) Diverticulosis Many [...] unsweetened, w/added ascorbic acid 1 cup 0.5 [place] 1 cup 0.7 Vegetables Cooked Green beans 1 cup 4.0 Carrots 1/2 cup sliced 2.3 Peas 1 cup 8.8 Potato (baked, with skin) 1 medium potato 3.8 Raw [place] (with peel) 1 cucumber 1.5 Lettuce 1 [...] 8.7 Peanuts 1/2 cup 7[address] [facility] 2013. SEEK IMMEDIATE MEDICAL CARE IF: [...] of Agriculture (USDA) National Nutrient Database at: http://www.nal.usda.gov/fnic/f oodcomp/search/ Created using data from the USDA National Nutrient Database for Standard Reference. Available at http://www.nal.usda.gov/fnic/f oodcomp/search/. Information adapted from: [facility] Patient Information 2009 [employer]. [employer] 2012 http://www.Social Tools/lani sim/acwomwzbsmjk-picejnt-oyluvm -the-basics 09/16/2023 14:59:47 Colon Polyps Colon Polyps [...] hard liquor (44 mL). General instructions Take mxxx-gen-hvlvfrc and prescription medicines only as told by [...] provider. Document Revised: 10/05/2020 Document Reviewed: 10/05/2020 [employer] Patient Education 2022 [employer] Follow Up Care 02/28/2023 13:25:17 With:Davion Olivares Address: [facility] [address] [place], [address] [phone] [employer] (1) When: Unknown Comments:office will call for follow up [facility] 09-16-2023 Evaluation + Plan note Extrac pepito from: Title:ANES Post General Author:Danny Anesthes iology ()Obie Date:09/16/23 Plan Transfer/Discharge: Patient exhibiting no signs of N/V. Hydration status is adequate. Extracted from: Title:Danny Basic PRE Author:Danny Anesthe siology ()Obie Date:09/16/23 Plan [place] [employer] Anesthesiologists (ASA) physical status classification: Class III. Anesthetic Preoperative Plan: Anesthesia General. [facility]11-02-2023 Instructions* Patient Instructions* Grayson Hutchinson Jr., - [...] for repeat hearing testing. documented in this [id number] History of Present illness Narrative* Mary Sue, Oswaldo - 05/02/2023 9:19 AM EDT Images from the original note were not included. [facility] [address] [place] [address] Name: Mary Jane Rios : 1945 Date: [...] for bilateral ear infection. She returned to [facility] and was told that herear was still infected. She reports her last hearing test several years ago in [place]. 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 Electronically Signed by: Oswaldo Blake, [facility] [facility] 05/02/23 9:19 AM documented in this [id number] History of Present illness Narrative* Grayson Hutchinson Jr., DO - 05/02/2023 8:57 AM EDT Images from the original note were not included. Subjective Patient ID: Mary Jane Rios is a 77 y.o. female. 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 Patient states she has had left ear infections for most of her life. She was treated for ear infection with Augmentin in October. 3 weeks ago, woke up with extreme pain and was treated again for b/l ear infection. She returned to [facility] and was told thather ear was still infected. Last hearing test several years ago in [place]. 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 documented in this [id number] NoteChief Complaint: lbp and radicular pain right [...] current indications for surgical management [facility] NoteChief Complaint: lbp and radicular pain [...] preoperative surgical planning [facility]* Encounter Date Diagnosis Assessment Notes Treatment Notes Treatment Clinical Notes Mar, Piriformis syndrome of right side (ICD-10 - G57.01) [employer] Other 09-14-2023 Evaluation note* Encounter Date Diagnosis [...] note writ ten by John Merlos LPN, Crew Boat Operator. Edited and approved by Dr. Yanelis Garcia MD. [employer] Other 09-07-2023 Evaluation note* Encounter Date Diagnosis [...] be replaced but there are areas of emmz-qs-jkfn. My suspicion is that this is causing some nerve irritation I have no indication for doing back surgery I think injections in the spine will be of no benefit she is already had some and they have not helped. I think what needs to be injected or treated is the area around the hip. Mar, Right hip pain (ICD-10 - M25.551) [employer] Other 08-28-2023 Evaluation note* Encounter Date Diagnosis Assessment Notes Treatment Notes Treatment Clinical Notes Jan, Other spondylosis with radiculopathy, lumbar region (ICD-10 - M47.26) [employer] Other 08-17-2023 Evaluation note* Encounter Date Diagnosis Assessment Notes Treatment Notes Treatment Clinical Notes Jan, Other spondylosis with radiculopathy, lumbar region (ICD-10 - M47.26) [employer] [facility] [employer] Other 08-11-2023 Hospital Discharge instructions* Discharge Instructions* Keyshawn Suresh PA-C - 02/08/2023 4:26 PM EDT Follow-up with primary care doctor 7 to 10 days for reevaluation. Continue to wear corrective shoe as directed to prevent future sciatica low back pain events. Take Cameron as directed. As we discussed, break a tab of Cameron in half and take every 6 hours as needed for pain. Promptly return to emergency department for new, changing, worsening of symptoms or other concerns. * Attachments The following attachments cannot be sent through Care Everywhere. * Back Pain (Cymro) * Sciatica (Cymro) [facility]* Encounter Date Diagnosis [...] therapy. Follow above of treatment plan recommendations. [employer] Other 05-28-2023 History of Present illness Narrative* Zunilda Bullock RN - 11/25/2022 10:47 AM EDT Ticket to ride completed. The following information was reported off: Name Allergies Orientation Level Destination Safety Issues Code Status Oxygen Requirements Special needs including mobility, language, communication documented in this [facility] Phone: [phone]) 206-385102-28-2023 Hospital Discharge instructions Patient Education 08/28/2022 13:26:40 [...] powder, vinegar, hot sauces, and barbecue sauce. ?[place] fruit juices and citrus fruits, such as [...] to any changes in your symptoms. Take elrc-wzx-dqnpptb and prescription medicines only as told by [...] you have new or worsening symptoms. Take thzq-kav-ewsryoo and prescription medicines only as told by [...] 03/27/2006 Document Revised: 12/24/2018 Document Reviewed: 12/24/2018 [employer] Patient Education 2020 [employer]. Follow Up Care 08/15/2022 13:39:48 With:KHADAR STEINER, EMIL Ferrari, [facility] Address: [address] [place] [address]. [address] [place] [id number] When:6 months Comments:Patient requests to be evaluated by Dr. Hernandez next visit. [facility] [id number] Evaluation note* Encounter Date Diagnosis Assessment Notes [...] note writ ten by John Merlos LPN, Crew Boat Operator. Edited and approved by Dr. Yanelis Garcia MD. [employer] Other 01-26-2023 Evaluation + Plan noteExtracted from: Title:ANES Pre-operative Note Author:Misha STEINER, R miryam S. Date:07/26/22 Plan [place] [employer] of Anesthesiologists (ASA) physical status classification: Class III. Anesthetic Preoperative Plan: Anesthesia General. [facility]01-26-2023 Hospital Discharge instructions Patient Education 07/26/2022 08:42:33 [...] what activities are safe for you. Take fhkb-mbj-vdrslzd and prescription medicines only as told by [...] 12/16/2012 Document Revised: 12/09/2018 Document Reviewed: 11/17/2018 [employer] Patient Education 2020 [employer]. Follow Up Care 07/10/2022 14:59:17 With:Vonda HERNANDEZ Address: [address] [place] [address] Business (1) When: Unknown Comments:Office will call date and time of follow-up appt. [facility]01-17-2023 Procedure [facility]01-12-2023 Hospital Discharge instructions* Discharge Instructions* Alma Mao DO - 07/12/2022 9:31 AM EST Go to your scheduled appt with your GI doctor for your scope. * Attachments The following attachments cannot be sent through Care Everywhere. * Sore Throat (Cymro) documented in this encounterBON [facility]DailySt[facility]Many[facility] Work Phone: [phone] 584-721501-10-2023 Hospital Discharge instructions Patient Education 07/10/2022 14:24:54 [...] powder, vinegar, hot sauces, and barbecue sauce. ?[place] fruit juices and citrus fruits, such as [...] to any changes in your symptoms. Take lfch-nks-rstsyvn and prescription medicines only as told by [...] you have new or worsening symptoms. Take vyvr-dbo-nzneqkx and prescription medicines only as told by [...] 03/27/2006 Document Revised: 12/24/2018 Document Reviewed: 12/24/2018 [employer] Patient Education 2020 [employer]. Follow Up Care 06/26/2022 15:51:19 With:Donna Spencer CNP Address: When:1 to 2 weeks Comments:Following EGD. [facility] 12-14-2022 Evaluation note* Encounter [...] note writ ten by John Merlos LPN, Crew Boat Operator. Edited and approved by Dr. Yanelis Garcia MD. [employer] Other 11-02-2022 Evaluation note* Encounter Date Diagnosis [...] note writ ten by Rush Toro MA, Crew Boat Operator. Edited and approved by Dr. Yanelis Garcia MD. [employer] Other 10-10-2022 Evaluation note* Encounter Date Diagnosis [...] note writ ten by John Merlos LPN, Crew Boat Operator. Edited and approved by Dr. Yanelis Garcia MD. [facility] [employer] Other 04-13-2022 History of Present illness Narrative* Zo Chen, PT - 10/11/2021 9:00 AM EDT Images from the original note were not included. [facility] Outpatient Physical Therapy Daily Note Date: 10/11/2021 Patient Name: Mary Jane Rios : 1945 (75 y.o.) Referring Practitioner: Dr. 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 : 18 visits marine oil terminal superintendent goal 1: PROM flexion 150 deg and abduction 140 deg- MET correction goal 2: PROM ER 50 deg and IR 60 deg (@ 90 deg )- MET correction goal 3: Functionally elevate right shoulder to reach behind head for self care/hair care-MET correction goal 4: Functionally reach behind back to don coat or bra- NOT MET correction goal 5: Strength right shoulder/UE to carry gallon of milk- MET Post Treatment Pain: 08/10 Time In: 0900 Time Out : 0950 Timed Code Treatment Minutes: 45 Minutes Total Treatment Time: 50 Minutes ZO CHEN PT Date: 10/11/2021 documented in this [email or web address] Phone: [phone]) 521-127404-13-2022 Hospital course Narrative* Zo Chen, PT - 10/11/2021 9:00 AM EDT Images from the original note were not included. [facility] Outpatient Physical Therapy Discharge Summary Patient: Mary Jane Rios : 1945 Referring Practitioner: Dr. Meyer Diagnosis: Right RCR repair Date Treatment Initiated: 04/28/22 Date of Last Treatment: 10/11/21 PT Visit Information Onset Date: 07/28/21 PT Insurance Information: [facility] Total # of Visits Approved: 18 Total [...] CHEN PT Date: 10/11/2021 documented in this [facility] Work Phone: 1(210) 333-923804-06-2022 History of Present illness Narrative* Zo Chen PT - 10/04/2021 11:15 AM EDT Images from the original note were not included. [facility] Outpatient Physical Therapy Daily Note Date: 10/04/2021 Patient Name: Mary Jane Rios : 1945 (75 y.o.) Referring Practitioner: Dr. Meyer Referral Date : 08/10/21 Diagnosis: Right RCR repair Treatment Diagnosis: Right RCR Onset Date: 07/28/21 PT Insurance Information: [facility] Total # of Visits Approved: 18 Per Physician Order Total # of Visits to Date: 15 No Show: 0 Canceled Appointment: 1 Plan of Care/Certification Expiration Date: 10/12/21 Pre-Treatment Pain: 410 Assessment Assessment: Patient reports increased soreness after [...] 35 deg @ 90 deg - MET Prison Goals - Time Frame for correction goals : 18 visits correction goal 1: PROM flexion 150 deg and abduction 140 deg correction goal 2: PROM ER 50 deg and IR 60 deg (@ 90 deg ) marine oil terminal superintendent goal 3: Functionally elevate right shoulder to reach behind head for self care/hair care marine oil terminal superintendent goal 4: Functionally reach behind back to don coat or bra correction goal 5: Strength right shoulder/UE to carry gallong of milk Post Treatment Pain: 10/08 Time In: 1115 Time Out : 1200 Timed Code Treatment Minutes: 45 Minutes Total Treatment Time: 45 Minutes ZO CHEN PT Date: 10/04/[address] [facility] [employer] Phone: [phone]) 454-910203-28-2022 History of Present illness Narrative* Rashmi Paige - 09/25/2021 11:15 AM EDT [facility] Date: 09/25/2021 Patient Name: Mary Jane Rios : 1945 Pt Cancelled Appt due to going to a . Rashmi Paige Date: 09/25/2021 documented in this [email or web address] Phone: [phone]) 191-199303-24-2022 History of Present illness Narrative* Velasquez Martel PTA - 09/21/2021 9:00 AM EDT Images from the original note were not included. [facility] Outpatient Physical Therapy Daily Note Date: 09/21/2021 Patient Name: Mary Jane Rios : 1945 (75 y.o.) Referring Practitioner: Dr. 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 goal 1: PROM flexion 150 deg and abduction 140 deg marine oil terminal superintendent goal 2: PROM ER 50 deg and IR 60 deg (@ 90 deg ) correction goal 3: Functionally elevate right shoulder to reach behind head for self care/hair care marine oil terminal superintendent goal 4: Functionally reach behind back to don coat or bra correction goal 5: Strength right shoulder/UE to carry gallong of milk Post Treatment Pain: 10/08 Time In: 0901 Time Out : 0946 Timed Code Treatment Minutes: 45 Minutes Total Treatment Time: 45 Minutes Velasquez Martel PTA Date: 09/21/2021 documented in this [facility] Work Phone: 1([phone]) 231-172003-22-2022 History of Present illness Narrative* Nancy Nunez - 09/19/2021 9:15 AM EDT Images from the original note were not included. [facility] Outpatient Physical Therapy Daily Note Date: 09/19/2021 Patient Name: Mary Jane Rios : 1945 (75 y.o.) Referring Practitioner: Dr. 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 goal 1: PROM flexion 150 deg and abduction 140 deg correction goal 2: PROM ER 50 deg and IR 60 deg (@ 90 deg ) correction goal 3: Functionally elevate right shoulder to reach behind head for self care/hair care marine oil terminal superintendent goal 4: Functionally reach behind back to don coat or bra correction goal 5: Strength right shoulder/UE to carry gallong of milk Post Treatment Pain: 09/07 Time In: 0915 Time Out : 0958 Timed Code Treatment Minutes: 43 Minutes Total Treatment Time: 43 Minutes Nancy Nunez,WATER MAIN INSPECTOR Date: 09/19/2021 documented in this [facility] Work Phone: [phone]) 216-972803-18-2022 History of Present illness Narrative* Velasquez Martel, WATER MAIN INSPECTOR - 09/15/2021 9:45 AM EDT Images from the original note were not included. [facility] Outpatient Physical Therapy Daily Note Date: 09/15/2021 Patient Name: Mary Jane Rios : 1945 (75 y.o.) Referring Practitioner: Dr. 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 : 18 visits correction goal 1: PROM flexion 150 deg and abduction 140 deg correction goal 2: PROM ER 50 deg and IR 60 deg (@ 90 deg ) marine oil terminal superintendent goal 3: Functionally elevate right shoulder to reach behind head for self care/hair care marine oil terminal superintendent goal 4: Functionally reach behind back to don coat or bra correction goal 5: Strength right shoulder/UE to carry gallong of milk Post Treatment Pain: 10/08 Time In: 0945 Time Out : 1030 Timed Code Treatment Minutes: 45 Minutes Total Treatment Time: 45 Minutes Velasquez Martel PTA Date: 09/15/2021 documented in this [facility] Work Phone: [phone]) 188-132703-16-2022 History of Present illness Narrative* Velasquez Martel, WATER MAIN INSPECTOR - 09/13/2021 9:45 AM EDT Images from the original note were not included. [facility] Outpatient Physical Therapy Daily Note Date: 09/13/2021 Patient Name: Mary Jane Rios : 1945 (75 y.o.) Referring Practitioner: Dr. 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 goal 1: PROM flexion 150 deg and abduction 140 deg correction goal 2: PROM ER 50 deg and IR 60 deg (@ 90 deg ) correction goal 3: Functionally elevate right shoulder to reach behind head for self care/hair care correction goal 4: Functionally reach behind back to don coat or bra correction goal 5: Strength right shoulder/UE to carry gallong of milk Post Treatment Pain: 3-4/10 Time In: 0945 Time Out : 1030 Timed Code Treatment Minutes: 45 Minutes Total Treatment Time: 45 Minutes Velasquez Martel PTA Date: 09/13/2021 documented in this [facility] Work Phone: 1([phone]) 776-829403-10-2022 History of Present illness Narrative* Zo Chen, PT - 09/07/2021 11:15 AM EST Images from the original note were not included. [facility] Outpatient Physical Therapy Daily Note Date: 09/07/2021 Patient Name: Mary Jane Rios : 1945 (75 y.o.) Referring Practitioner: Dr. 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 superintendent goal 3: Functionally elevate right shoulder to reach behind head for self care/hair care marine oil terminal superintendent goal 4: Functionally reach behind back to don coat or bra correction goal 5: Strength right shoulder/UE to carry gallong of milk Post Treatment Pain: 08/10 Time In: 1105 Time Out : 1150 Timed Code Treatment Minutes: 45 Minutes Total Treatment Time: 45 Minutes ZO CHEN PT Date: 09/07/2021 documented in this [email or web address] Phone: [phone]) 412-911212-13-2021 History of Present illness Narrative* Rashmi Shukla Kenjil - 06/12/2021 10:30 AM EST [facility] Date: 06/12/2021 Patient Name: Mary Jane Rios : 1945 Pt Cancelled Appt due to Illness Rashmi Vazquez Paige Date: 06/12/2021 documented in this [email or web address] Phone: [phone] 192-658511-05-2021 History of Present illness Narrative* Zo Chen, PT - 05/05/2021 2:30 PM EDT Images from the original note were not included. 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 goals : 10 visits correction goal 1: Subjective right shoulder pain < 3/10 with daily household tasks marine oil terminal superintendent goal 2: Active functional mobility to reach behind head for hair care and behind back to don coat/dressing marine oil terminal superintendent goal 3: Strength right shoulder to lift/carry gallon of milk or fold clothes Post Treatment Pain: 3/10 Time In: 1435 Time Out : 1510 Timed Code Treatment Minutes: 35 Minutes Total Treatment Time: 35 Minutes ZO CHEN PT Date: 05/05/2021 documented in this [email or web address] Phone: [phone]) 944-838805-21-2021 History of Present illness Narrative* Ericka Cline RN - 11/18/2020 6:50 AM EDT Pt states she took 6 tablets of Imodium yesterday. She states she is incontinent of urine/stool & the imodium is not helping. documented in this [facility] Work Phone: evaluation + Plan note No data available for this section [facility] Evaluation + Plan note Future Appointments Appointment Date:07/10/2022 02:00:00 PM Scheduled Provider:Donna Spencer CNP Location:[facility] Appointment Type:[facility] Follow Up [facility] Evaluation + Plan note Future Appointments Appointment Date:07/26/2022 08:15:00 AM Scheduled Provider: Location:[facility] Surgical Services Appointment Type:Surgery FT [facility] Evaluation + Plan note Future Appointments Appointment Date:02/28/2023 12:00:00 PM Scheduled Provider:Vonda HERNANDEZ MD Location:[facility] Appointment Type:[facility] Follow Up Future Scheduled Tests Laboratory* Vitamin B12 Level 08/28/22 [facility] Evaluation + Plan note Future Appointments Appointment Date:08/05/2023 12:30:00 PM Scheduled Provider: Location:[facility] Services Appointment Type:Surgery FT Future Scheduled Tests Laboratory* Vitamin B12 Level 08/28/22 [facility] evaluation note* Diagnosis Nausea vomiting and diarrhea- Primary Nausea with vomiting documented in this encounter [employer] Phone: evaluation note* Diagnosis Diarrhea of presumed infectious origin Intractable vomiting with nausea, unspecified vomiting type documented in this encounter [employer] Phone: evalpyepfi note* Diagnosis Diarrhea, unspecified type- Primary General weakness Other malaise and fatigue Urinary incontinence, unspecified type documented in this encounter [employer] Phone: evalsxfivn note* Diagnosis Low hemoglobin Anemia, unspecified documented in this encounter [employer] Phone: evalebvhzt note* Diagnosis Low hemoglobin Anemia, unspecified documented in this encounter [employer] Phone: evaluation note* Diagnosis Screening mammogram, encounter for documented in this encounter [employer] Phone: evalxmxdux note* Diagnosis Right shoulder pain, unspecified chronicity documented in this encounter [employer] Phone: evalzcafjt note* Diagnosis Acute non-recurrent pansinusitis documented in this encounter [employer] Phone: evalkufhga note* Diagnosis Diarrhea of presumed infectious origin documented in this encounter [employer] note* Diagnosis History of arthroscopy of right shoulder documented in this encounter [employer] Phone: [email or web address] note* Diagnosis Essential hypertension Unspecified essential hypertension Palpitations Hypothyroidism, unspecified type Hyperlipidemia, unspecified hyperlipidemia type Vitamin D deficiency disease Unspecified vitamin D deficiency documented in this encounter [employer] Phone: evaluation note* Diagnosis Essential hypertension Unspecified essential hypertension Pure hypercholesterolemia Acquired hypothyroidism Unspecified hypothyroidism Palpitations Vitamin D deficiency disease Unspecified vitamin D deficiency documented in this encounter [employer] Phone: evaluation note* Diagnosis Essential hypertension Unspecified essential hypertension Pure hypercholesterolemia Acquired hypothyroidism Unspecified hypothyroidism Palpitations Vitamin D deficiency disease Unspecified vitamin D deficiency documented in this encounter [employer] Phone: evaljowgtc note* Diagnosis Essential hypertension Unspecified essential hypertension Pure hypercholesterolemia Acquired hypothyroidism Unspecified hypothyroidism Palpitations Vitamin D deficiency disease Unspecified vitamin D deficiency documented in this encounter [employer] Phone: evaljntbhw note* Diagnosis Acute cystitis with hematuria- Primary Acute cystitis Vaginal yeast infection Candidiasis of vulva and vagina documented in this encounter [employer] Phone: evalkeuvdu note* Diagnosis Women's annual routine gynecological examination Vaginal burning Other specified symptom associated with female genital organs documented in this encounter [employer] Phone: evalmfxdwd note* Diagnosis H/O repair of right rotator cuff Personal history of surgery to other organs documented in this encounter [employer] Phone: evalxdhlie note* Diagnosis Visit for screening mammogram Other screening mammogram documented in this encounter [employer] Phone: evaluation noteNo assessment information [facility] Work Phone: Evaluation noteNo InformationNoSt. Mary Medical Center [employer] Companies Other Evaluation note* Diagnosis Acute pharyngitis, unspecified etiology- Primary documented in this encounter [employer] Phone: evaluation note* Diagnosis Essential hypertension Unspecified essential hypertension Palpitations Hypothyroidism, unspecified type Hyperlipidemia, unspecified hyperlipidemia type Vitamin D deficiency disease Unspecified vitamin D deficiency documented in this encounter [facility] Phone: evaluation note* Diagnosis Non-recurrent acute suppurative otitis media of left ear without spontaneous rupture of tympanic membrane- Primary Acute nonintractable headache, unspecified headache type documented in this encounter [facility] Phone: evaluation note* Diagnosis Chronic low back pain with right-sided sciatica, unspecified back pain laterality- Primary documented in this encounter [facility] note* Diagnosis Renal cyst Unspecified congenital cystic kidney disease documented in this encounter [facility] TOLEDOPalm Commerce Information Technology[facility] note* Diagnosis Bruxism (teeth grinding)- Primary Other specified psychophysiological malfunction Acute suppurative otitis media of left ear without spontaneous rupture of tympanic membrane, recurrence not specified ROSETTE on CPAP Hearing loss, unspecified hearing loss type, unspecified laterality [facility] Diagnosis Sensorineural hearing loss, bilateral- Primary Hearing loss, unspecified hearing loss type, unspecified laterality documented [facility]* Diagnosis COVID-19 virus infection- Primary documented in this encounter [facility] BiotechnologiesGalion HospitalPixability[facility] note* Diagnosis New onset atrial fibrillation (HCC)- Primary Atrial fibrillation Atrial fibrillation with RVR (HCC) Atrial fibrillation History of chronic kidney disease Personal history of other disorder of urinary system Symptoms of dehydration Fluid level behind tympanic membrane of both ears Acute pansinusitis, recurrence not specified Nausea vomiting and diarrhea Nausea with vomiting documented in this encounter [facility] note* Diagnosis Paroxysmal atrial fibrillation (HCC)- Primary Atrial fibrillation documented in this encounter [facility]SD[facility] note* Diagnosis Visit for screening mammogram Other screening mammogram documented in this encounter [facility]* Diagnosis COVID-19 virus infection- Primary documented in this encounter [facility]yst[facility]* Diagnosis Sprain of right ankle, unspecified ligament, initial encounter- Primary documented in this encounter [facility] note* Diagnosis Grade 2 ankle sprain- Primary Pain in joint involving right ankle and foot Right foot pain Pain in soft tissues of limb Ankle instability, right documented in this encounter [facility]* Diagnosis 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 (male)(female) documented [facility] this [facility]* Diagnosis Essential hypertension Unspecified essential hypertension Palpitations Hyperlipidemia, unspecified hyperlipidemia type Hypothyroidism, unspecified type Vitamin D deficiency disease Unspecified vitamin D deficiency documented in this encounter [facility]* Diagnosis Essential hypertension Unspecified essential hypertension Palpitations Hyperlipidemia, unspecified hyperlipidemia type Hypothyroidism, unspecified type Vitamin D deficiency disease Unspecified vitamin D deficiency documented in this [facility]* Diagnosis Essential hypertension Unspecified essential hypertension Palpitations Hyperlipidemia, unspecified hyperlipidemia type Hypothyroidism, unspecified type Vitamin D deficiency disease Unspecified vitamin D deficiency documented in this encounter [facility]* Diagnosis Grade 2 ankle sprain- Primary Ankle instability, right Right foot drop Other acquired deformity of ankle and foot documented in this encounter [facility]* Diagnosis Gross hematuria documented in this encounter [facility]* Diagnosis Bacterial URI- Primary Dermatitis Contact dermatitis and other eczema, due to unspecified cause [facility] Diagnosis Cough, unspecified type- Primary Sore throat Acute pharyngitis Nasal congestion Other diseases of nasal cavity and sinuses Cough, unspecified type documented in this encounter [facility] general Narrative - Reported* Type Description Date [...] History Epidural injections Hospitalization History see above [employer] [facility] [employer] Other [facility] general Narrative - Reported* Type Description Date [...] cuff tear repair Hospitalization History see above [facility] [employer] Other Hospital Discharge instructions* Attachments The following attachments cannot be sent through Care Everywhere. * Diarrhea (Cymro) [email or web address] Phone: hospital Discharge instructions* Attachments The following attachments cannot be sent through Care Everywhere. * Fatigue (Cymro) * Diarrhea (Cymro) * Stress Incontinence: Female (Cymro) * Urge Incontinence: Female (Cymro) documented [email or web address] Phone: hospital Discharge instructions* Attachments The following attachments cannot be sent through Care Everywhere. * UTI (Urinary Tract Infection): Female (Cymro) * Vaginal Yeast Infection (Cymro) documented [email or web address] Phone: hospital Discharge instructions No data available for this section [facility] Discharge instructions* Attachments The following attachments cannot be sent through Care Everywhere. * Otitis Media (Cymro) * Headache (Cymro) documented in this [facility]landDailyStrength [facility] SYSTEMMany[facility] Work Phone: hospital Discharge instructions* Attachments The following attachments cannot be sent through Care Everywhere. * Coronavirus Disease (COVID-19): General Info (Cymro) documented in this [facility] Discharge instructions* Attachments The following attachments cannot be sent through Care Everywhere. * Supraventricular Tachycardia (Cymro) documented in this [facility] Discharge instructions* Attachments The following attachments cannot be sent through Care Everywhere. * Ankle Sprain (Cymro) * RICE: General Info (Cymro) [facility]* Attachments The following attachments cannot be sent through Care Everywhere. * Dermatitis (Cymro) documented in this encounterOhioHealthInstructions* Attachments The following attachments cannot be sent through Care Everywhere. * Cough (Cymro) documented in this encounterOhioHealthProgress note No data available for this section [facility] Reason for referral (narrative)No reason for referral information availableOhiohealth [facility] Work Phone: Summary Purpose Family History No Family History [...] FoundDocuments on File Type Date Recorded Patient Water Main Inspector Expl anation Advance Directives and Livin g Will Advance Directives and Livin g Will 03/01/2016 1:57 PM Power of Welding Equipment Repairer Power of Welding Equipment Repairer 03/01/2016 1:57 PM Latest Code Status on File Code Status Date Activated Date Inactivated Comments Full Code 02/21/2015 1:32 PM 02/21/2015 5:10 PM Full Code 02/21/2015 12:11 PM 02/21/2015 1:32 PM Full Code 01/31/2015 10:04 AM 01/31/2015 12:51 PM Full Code 01/31/2015 8:49 AM 01/31/2015 10:04 AM Full Code 04/30/2012 8:28 AM 04/30/2012 3:52 PM Documents on File Type Date Recorded Patient Water Main Inspector Expl anation Advance Directives and Livin g Will Advance Directives and Livin g Will 03/01/2016 1:57 PM Power of Welding Equipment Repairer Power of Welding Equipment Repairer 03/01/2016 1:57 PM Latest Code Status on File Code Status Date Activated Date Inactivated Comments Full Code 02/21/2015 1:32 PM 02/21/2015 5:10 PM Full Code 02/21/2015 12:11 PM 02/21/2015 1:32 PM Full Code 01/31/2015 10:04 AM 01/31/2015 12:51 PM Full Code 01/31/2015 8:49 AM 01/31/2015 10:04 AM Full Code 04/30/2012 8:28 AM 04/30/2012 3:52 PM Documents on File Type Date Recorded Patient Water Main Inspector Expl anation ACP-Advance Directive ACP-Advance Directive 03/01/2016 1:57 PM ACP-Power of Welding Equipment Repairer ACP-Power of Welding Equipment Repairer 03/01/2016 1:57 PM Documents on File Type Date Recorded Patient Water Main Inspector Expl anation ACP-Advance Directive ACP-Advance Directive 03/01/2016 1:57 PM ACP-Power of Welding Equipment Repairer ACP-Power of Welding Equipment Repairer 03/01/2016 1:57 PM Documents on File Type Date Recorded Patient Water Main Inspector Expl anation ACP-Advance Directive ACP-Power of Welding Equipment Repairer ACP-Advance Directive 03/01/2016 1:57 PM ACP-Power of Welding Equipment Repairer 03/01/2016 1:57 PM Documents on File Type Date Recorded Patient Water Main Inspector Expl anation ACP-Advance Directive ACP-Power of Welding Equipment Repairer ACP-Advance Directive 03/01/2016 1:57 PM ACP-Power of Welding Equipment Repairer 03/01/2016 1:57 PM Healthcare Agents on File [...] Documents on File Type Date Recorded Patient Water Main Inspector Expl anation ACP-Advance Directive 03/01/2016 1:57 PM ACP-Power of Welding Equipment Repairer 03/01/2016 1:57 PM Healthcare Agents on File Name Relationship Healthcare Agent Relationshi p Communication Adeel Athy Spouse Primary Decision Maker Advance Directive Response Recorded Date/ Time Advance Directives No April 22, 2017 3:57pm Advance Directive Response Recorded Date/ Time Advance Directives No April 22, 2017 2:57pm Documents on File Type Date Recorded Patient Water Main Inspector Expl anation ACP-Advance Directive 03/01/2016 1:57 PM ACP-Power of Welding Equipment Repairer 03/01/2016 1:57 PM Healthcare Agents on File [...] Documents on File Type Date Recorded Patient Water Main Inspector Expl anation ACP-Power of Welding Equipment Repairer 03/01/2016 1:57 PM ACP-Advance Directive 03/01/2016 1:57 [...] Documents on File Type Date Recorded Patient Water Main Inspector Expl anation ACP-Power of Welding Equipment Repairer 03/01/2016 1:57 PM ACP-Advance Directive 03/01/2016 1:57 [...] Communication Adeel Athy Spouse Primary Decision Maker [email or web address] Healthcare Agents on File Name Relationship Healthcare Agent Relationshi p Communication Adeel Athy Spouse Primary Decision Maker [email or web address] Agents on File Name Relationship Healthcare Agent Relationshi p Communication Adeel Athy Spouse Primary Decision Maker [email or web address] Agents on File Name Relationship Healthcare Agent Relationshi p Communication Adeel Athy Spouse Primary Decision Maker [email or web address] Agents on File Name Relationship Healthcare Agent Relationshi p Communication Adeel Athy Spouse Primary Decision Maker [email or web address] Agents on File Name Relationship Healthcare Agent Sebas colbert Communication Adeel Rios Spouse Primary Decision Maker [email or web address] Discharge Instructions * Instructions* Lexy Tapia MD - 05/30/2019 Antibiotic written as a SNAP (Safety net antibiotic prescription), start medication if fever develops You can take your Ashley or Ashley D or Claritin if desired, in addition to Flonase which may also help both your sinuses and ear effusions * Attachments The following attachments cannot be sent through Care Everywhere. * Sinusitis (Cymro) documented in this encounter* Attachments The following attachments cannot be sent through Care Everywhere. * Fatigue (Cymro) * Vertigo (Cymro) documented in this encounter Assessments Diagnosis Acute [...] Procedures EKG 12 Lead Reagan Givens MD [address] [place] [address] Status Reason Specialty Diagnoses / Procedures Referre d By Contact Referred To Contact Closed Radiology Diagnoses Screening mammogram, encounter for Procedures ANA WU DIGITAL SCREEN BILATERAL Roni Dahl MD [address] [place] [address] [facility] [address] [place] [address] Specialty Diagnoses / Procedures Referred By Contac t Referred To Contact Cardiology Diagnoses Essential hypertension Palpitations Hypothyroidism, unspecified type Hyperlipidemia, unspecified hyperlipidemia type Vitamin D deficiency disease Procedures EKG 12 Reagan Atkins MD [address] [place] [address] Referral ID Status Reason Start Date Expiration Date Visits Re quested Visits Authorized [id number] Open 09/06/2021 09/06/2022 1 1 Status Reason Specialty Diagnoses / Procedures Referre d By Contact Referred To Contact Open Cardiology Diagnoses Essential hypertension Pure hypercholesterolemia Acquired hypothyroidism Palpitations Vitamin D deficiency disease Procedures EKG 12 Reagan Atkins MD [address] [place], [place] [id number] Specialty Diagnoses / Procedures Referred By Contac t Referred To Contact Radiology Diagnoses Visit for screening mammogram Procedures [facility] WU DIGITAL SCREEN BILATERAL Roni Dahl MD [address] [place] [address] Referral ID Status Reason Start Date Expiration Date Visits Re quested Visits Authorized [id number] Closed 01/25/2022 01/25/2023 1 1 Specialty Diagnoses / Procedures Referred By Contac t Referred To Contact Radiology Diagnoses Renal cyst Procedures US RENAL LIMITED Yanelis Guzman MD [address] [facility], [address] [place] [address] Referral ID Status Reason Start Date Expiration Date Visits Re quested Visits Authorized [id number] Open 03/13/2023 03/12/2024 1 1 Specialty Diagnoses / Procedures Referred By Contac t Referred To Contact Audiology Diagnoses Hearing loss, unspecified hearing loss type, unspecified laterality Grayson Hutchinson Jr., DO [address] [place] [address] Vignesh Mary, AuD [address] [place] [address] Referral ID Status Reason Start Date Expiration Date V isits Requested Visits Authorized [id number] Closed Specialty Services Required/Flower ent's Best Interest 05/02/2023 05/01/2024 1 1 Specialty Diagnoses / Procedures Referred By Contac t Referred To Contact Cardiology Diagnoses New onset atrial fibrillation (HCC) Atrial fibrillation with RVR (HCC) Procedures 90001 - [place] Single/Multiple Event Recorder Lexy Tapia MD [address] [place] [address] [place] [address] Referral ID Status Reason Start Date Expiration Date Visits Re quested Visits Authorized [id number] Open 10/23/2023 10/22/2024 1 1 Referral ID Status Reason Start Date Expiration Date Visits Re quested Visits Authorized [id number] Closed 04/24/2024 04/24/2025 1 1 Specialty Diagnoses / Procedures Referred By Contac t Referred To Contact Cardiology Diagnoses Essential hypertension Palpitations Hyperlipidemia, unspecified hyperlipidemia type Hypothyroidism, unspecified type Vitamin D deficiency disease Procedures EKG 12 Lead Reagan Givens MD [address] [place] [address] Referral ID Status Reason Start Date Expiration Date V isits Requested Visits Authorized [id number] Pending Review 09/01/2024 09/01/2025 1 1 Chief [...] 2:17pm R35.0 September 10, 2024 9:1 1am Chief Complaint Admit Date M15.0, M35.9, R76.0, Z79.899 January 7:49am Additional Source Comments INFORMATION SOURCE (unrecogn ized section and content) DATE CREATED AUTHOR 12/24/[address] [facility] DATE CREATED AUTHOR AUTHOR'S ORGANIZ ATION 03/27/2018 [facility] DATE CREATED AUTHOR AUTHOR'S ORGANIZ ATION 07/13/2021 [facility] dical Specialist DATE CREATED AUTHOR AUTHOR'S ORGANIZ ATION 04/13/2023 [facility] DATE CREATED AUTHOR AUTHOR'S ORGANIZ ATION 05/06/2023 [facility] DATE CREATED AUTHOR AUTHOR'S ORGANIZ ATION 01/17/2024 [facility] DATE CREATED AUTHOR AUTHOR'S ORGANIZ ATION 08/31/2024 [facility] DATE CREATED AUTHOR AUTHOR'S ORGANIZ ATION 11/28/2024 [facility] dical Specialists EPIC DATE CREATED AUTHOR AUTHOR'S ORGANIZ ATION 12/23/2024 [facility] DATE CREATED AUTHOR AUTHOR'S ORGANIZ ATION 02/10/2025 [facility] DATE CREATED AUTHOR AUTHOR'S ORGANIZ ATION 02/27/[address] [facility] DATE CREATED AUTHOR AUTHOR'S ORGANIZ ATION 03/16/2025 [facility] ysician Group Reason for Visit (unrecogniz ed section and [...] MAMMOGRAM DIGITAL SCREEN Roni Sales MD [address] [place] [address] [facility] [address] [place] [address] Reason Comments Illness Pt has not been [...] DIGITAL SCREEN BILATERAL Roni Dahl MD [address] [place] [address] [facility] [address] [place] [address] Status Reason Specialty Diagnoses / Procedures Referred By Contact Referred To Contact Open Physical Therapy Diagnoses Shoulder pain, right Procedures physical therapy Christian Meyer, [address] [place] [address] Zo Chen, PT [address] [place] [address] Specialty Diagnoses / Procedures Referred By Contac t Referred To Contact Physical Therapy Diagnoses Shoulder pain, right Procedures physical therapy Christian Meyer DO [address] [place] [address] Zo Chen, PT [address] [place] [address] Referral ID Status Reason Start Date Expiration Date Visits Re quested Visits Authorized [id number] Open 04/28/2021 04/28/2022 99 99 Reason Comments Urinary Tract Infection Pt states that s he has been having painful urination x 10 days. Specialty Diagnoses / Procedures Referred By Juan Manuel garibay Referred To Contact Radiology Diagnoses Visit for screening mammogram Procedures [facility] WU DIGITAL SCREEN BILATERAL Roni Dahl MD [address] [place] [address] Referral ID Status Reason Start Date Expiration Date Visits Re quested Visits Authorized [id number] Closed 01/25/2022 01/25/2023 1 1 Reason Comments [...] working in the garden. Patient seen [facility] past Saturday and given cortisone/ muscle relaxer. Patient unable to relieve pain. 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 Patient states she has had left ear infections for most of her life. She was treated for ear infection with Augmentin in October. 3 weeks ago, woke up with extreme pain and was treated again for b/l ear infection. She returned to [facility] and was told that her ear was still infected. Last hearing test several years ago in [place]. 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 Saw Gann in 2019. Specialty Diagnoses / Procedures Referred By Juan Manuel garibay Referred To Contact Otolaryngology Diagnoses Acute suppurative otitis media of left ear without spontaneous rupture of tympanic membrane, recurrence not specified Andre Rowe, MOVIE OPERATOR [address] [place] [address] Grayson Hutchinson Jr., DO [address] [place] [address] Referral ID Status Reason Start Date Expiration Date V isits Requested Visits Authorized [id number] Closed Specialty Services Required/Flower ent's Best Interest 04/24/2023 04/23/2024 1 1 Specialty Diagnoses / Procedures Referred By Contac t Referred To Contact Audiology Diagnoses Hearing loss, unspecified hearing loss type, unspecified laterality Grayson Hutchinson Jr., DO [address] [place] [address] AlbaroriverMary Castano, AuD [address] [place] [address] Referral ID Status Reason Start Date Expiration Date V isits Requested Visits Authorized [id number] Closed Specialty Services Required/Flower ent's Best Interest [...] Expiration Date Visits Re quested Visits Authorized [id number] Closed 04/24/2024 04/24/2025 1 1 Reason Comments [...] Start Date End Da te nystatin (MYCOSTATIN) [id number] UNIT/ML suspension Take 5 mLs by mouth 4 times daily Swish and swallow. 200 mL 0 11/25/2022 amoxicillin-clavulanate (AUGMENTIN) 875-125 MG per tablet Take 1 tablet by mouth 2 times daily for 10 days 20 tablet 0 11/25/2022 12/05/2022 nystatin (MYCOSTATIN) [id number] UNIT/ML suspension Take 5 mLs by mouth [...] on the AUG. 1448 ([facility] Provider: Emily Choi RN) Scheduled Medication [...] 2 Hours, ONCE, On Shannan 11/14/23 at 2045, For 1 dose, Recommended infusion [...] 191 (Given - Provid er: Maria R Love [...] Care Teams (unrecognized sec tion and content) Scraper Loader Operator Relationship Specialty Start Date End Date Roni Dahl MD [address] [place] [address] PCP - General 07/15/12 Scraper Loader Operator Relationship Specialty Start Date End Date Roni Dahl MD [address] [place] [address] PCP - General 07/15/12 Scraper Loader Operator Relationship Specialty Start Date End Date Roni Dahl MD [address] [place] [address] PCP - General 07/15/12 Scraper Loader Operator Relationship Specialty Start Date End Date Roni Dahl MD [address] [place] [address] PCP - General 07/15/12 Scraper Loader Operator Relationship Specialty Start Date End Date Roni Dahl MD [address] [place] [id number] PCP - General 07/15/12 Scraper Loader Operator Relationship Specialty Start Date End Date Roni Dahl MD [address] [place] [id number] PCP - General 07/15/12 Scraper Loader Operator Relationship Specialty Start Date End Date Roni Dahl MD [address] [place], [place] [id number] PCP - General 07/15/12 Scraper Loader Operator Relationship Specialty Start Date End Date Roni Dahl MD [address] [place] [id number] PCP - General 07/15/12 Scraper Loader Operator Relationship Specialty Start Date End Date Roni Dahl MD [address] [place], [place] [phone] PCP - General 07/15/12 Scraper Loader Operator Relationship Specialty Start Date End Date Roni Dahl MD [address] [place] [id number] PCP - General 07/15/12 Scraper Loader Operator Relationship Specialty Start Date End Date Roni Dahl MD [address] [place] [address] PCP - General 07/15/12 Scraper Loader Operator Relationship Specialty Start Date End Date Roni Dahl MD [address] [place] [address] PCP - General 07/15/12 Team Status: Inactive [...] Active Yanelis Garcia MD Attending Provider Active Scraper Loader Operator Relationship Specialty Start Date End Date Roni Dahl MD [address] [place] [id number] PCP - General 07/15/12 Scraper Loader Operator Relationship Specialty Start Date End Date Roni Dahl MD [address] [place] [phone] PCP - General 07/15/12 Scraper Loader Operator Relationship Specialty Start Date End Date Roni Dahl MD [address] [place] [id number] PCP - General 07/15/12 Scraper Loader Operator Relationship Specialty Start Date End Date Roni Dahl MD [address] [place] [id number] PCP - General 07/15/12 Scraper Loader Operator Relationship Specialty Start Date End Date Roni Dahl MD [address] [place] [id number] PCP - General 07/15/12 Team Status: Inactive Member Role Status Dates Roni Dahl MD Primary Care Provider Active Jesus Vasquez APRN Emergency Provider Active Scraper Loader Operator Relationship Specialty Start Date End Date Roni Dahl MD [address] [place], [place] [id number] PCP - General 07/15/12 Team Status: Inactive Member Role Status Dates Roni Dahl MD Primary Care Provider Active Mukul Wilson MD Attending Provider Active Scraper Loader Operator Relationship Specialty Start Date End Date Roni Dahl MD [address] [place] [id number] PCP - General 07/15/12 Scraper Loader Operator Relationship Specialty Start Date End Date Roni Dahl MD [address] [id number] PCP - General Family Medicine 04/24/23 Scraper Loader Operator Relationship Specialty Start Date End Date Roni Dahl MD [address] [id number] PCP - General Family Medicine 04/24/23 Team Status: Inactive Member Role Status Dates Roni Dahl MD Primary Care Provider Active Obie Hylton MD Attending Provider Active Scraper Loader Operator Relationship Specialty Start Date End Date Roni Dahl MD [address] [id number] [facility] General 07/15/12 Team Status: Inactive Member Role Status Dates Roni Dahl MD Primary Care Provider Active Start: September 19, 2023 End: September 19, 2023 DENISHA Cedeño Attending Provider Active Start: September 19, 2023 End: September 19, 2023 Scraper Loader Operator Relationship Specialty Start Date End Date Roni Dahl MD [address] [id number] PCP - General 07/15/12 Scraper Loader Operator Relationship Specialty Start Date End Date Roni Dahl MD [address] [place] [address] PCP - General 07/15/12 Team Status: Inactive Member Role Status Dates Roni Dahl MD Primary Care Provider Active Start: December 19, 2023 End: December 19, 2023 Obie Hylotn MD Attending Provider Active St art: December 19, 2023 End: December 19, 2023 Team Status: Inactive Member Role Status Dates Roni Dahl MD Primary Care Provider Active Start: February 06, 2024 End: February 06, 2024 Obie Hylton MD Attending Provider Active St art: February 06, 2024 End: February 06, 2024 Scraper Loader Operator Relationship Specialty Start Date End Date Roni Dahl MD [address] [place] [address] PCP - General 07/15/12 Scraper Loader Operator Relationship Specialty Start Date End Date Roni Dahl MD [address] [place] [address] PCP - General 07/15/12 Team Status: Inactive Member Role Status Dates Roni Dahl MD Primary Care Provider Active Start: August 11, 2024 End: August 11, 2024 Obie Hylton MD Attending Provider Active St art: August 11, 2024 End: August 11, 2024 Scraper Loader Operator Relationship Specialty Start Date End Date Roni Dahl MD [address] [place] [address] PCP - General Family Medicine 08/17/24 Scraper Loader Operator Relationship Specialty Start Date End Date Roni Dahl MD [address] [place] [address] PCP - General Family Medicine 08/17/24 Scraper Loader Operator Relationship Specialty Start Date End Date Roni Dahl MD [address] [place] [address] PCP - General 07/15/12 Scraper Loader Operator Relationship Specialty Start Date End Date Roni Dahl MD [address] [place] [address] PCP - General 07/15/12 Scraper Loader Operator Relationship Specialty Start Date End Date Roni Dahl MD [address] [id number] PCP - General 07/15/12 Team Status: Inactive Member Role Status Dates Roni Dahl MD Primary Care Provider Active Start: September 10, 2024 End: September 10, 2024 Nuvia Sanchez NP-Vazquez Attending Provider Active Start: September 10, 2024 End: September 10, 2024 Scraper Loader Operator Relationship Specialty Start Date End Date Roni Dahl MD [address] [id number] PCP - General Family Medicine 08/17/24 Scraper Loader Operator Relationship Specialty Start Date End Date Roni Dahl MD [address] [place] [address] PCP - General Family Medicine 08/17/24 Scraper Loader Operator Relationship Specialty Start Date End Date Roni Dahl MD [address] [id number] PCP - General 07/15/12 Scraper Loader Operator Relationship Specialty Start Date End Date Roni Dahl MD [address] [id number] PCP - General Family Medicine 04/24/23 Scraper Loader Operator Relationship Specialty Start Date End Date Roni Dahl MD [address] [id number] PCP - General Family Medicine 04/24/23 Team Status: Inactive Member Role Status Dates Roni Dahl MD Primary Care Provider Active Start: February 26, 2025 End: February 26, 2025 Obie Hylton MD Attending Provider Active St art: February 26, 2025 End: February 26, 2025 Goals (unrecognized section and content) Goals may [...] BE BASED ON THE PRIMARY CLINICAL RECORDS. [facility] [employer] provides no warranty or guarantee of the accuracy or completeness of information in this document.
== END 2025-03-18 13:23 | disposition home or self-care (01) ==
PROVIDERS: PCP Family Medicine; Visit Provider Nurse Practitioner
DX: M54.31 Sciatica, right side (principal); M54.16 Radiculopathy, lumbar region; M48.062 Spinal stenosis, lumbar region with neurogenic claudication
CPT/HCPCS: G0463

== ENCOUNTER 2025-04-12 10:47 | Day surgery (SDC) | payer MEDICARE, SELFPAY ==
[2025-04-12 11:04] VITALS: BP 124/63; PULSE 60; TEMP 36.3; O2SAT 98
--- OUTSIDE RECORDS SUMMARY | 2025-04-12 11:07 | XMS_ITS | CCD ---
Author Organization [facility] CliniSymo Care Team Providers Care Machine Tack Puller Name Role Phone JAMISON OWENS Unavailable Unavailable ANDREWS FISH Unavailable Unavailable LANIE PRINCE Unavailable Unavailable ANDREWS FISH Unavailable Unavailable Roni Dahl Primary Care Provider [phone] Roni Dahl Primary Care Provider [phone] Roni Dahl Primary Care Provider [phone] Roni Dahl MD Primary Care Provider Roni [...] Unavailable Roni Dahl MD Primary Care Provider [phone] MARY SUE Attending Unavail able RONI DAHL [...] Provider Roni Dahl MD Primary Care Provider REAGAN [...] Unavailable Verhoff Roni STEINER Primary Care Provider [phone] Obie Hylton MD Attending Provider [phone] Nuvia Smith Attending Provider LEXY CANALES Attending UnavailLEXY Daniels Attending Unavailabl LEXY Presley Attending Unavailabl e PARSELL, JOHN PAUL W Referring Unavailable VERHOFF, RONI L Primary Care Unavailable Roni Dahl MD Primary Care Provider RONI DAHL Primary Care Unavailable GEORGES BARGER Attending Unavailable CHRISTIAN LUCIO Attending Unavailable RONI DAHL Primary Care Unavailable RONI DAHL Primary Care Unavailable GEOGRES BARGER Referring Unavailable GEORGES BARGER Admitting Unavailable Nabila STEINER, Roni Primary [facility] Provider Obie Hylton MD Attending Provider Kimberly STEINER, Andrius Ko Attending Unavailable Nabila STEINER, [facility] Unavailab Jan STEINER, Andrius Ko Attending Unavailable Nabila STEINER, [facility] Unavailab Jan STEINER, Andrius Maikel Attending Unavailable Nabila STEINER, [facility] Unavailab Jan STEINER, Andrius Maikel Attending Unavailable Nabila STEINER, [facility] Unavailab Jan STEINER, Andrius Maikel Attending Unavailable Nabila STEINER, [facility] Unavailab Jan STEINER, Andrius Maikel Attending Unavailable Nabila STEINER, [facility] Unavailab Jan STEINER, Andrius Maikel Attending Unavailable Nabila STEINER, [facility] Unavailab Sandra STEINER, [facility] Unavailab Jan STEINER, Georgerius Ko Attending Unavailable Nabila STEINER, [facility] Unavailab Jan STEINER, Georgerius Maikel Attending Unavailable Obie Hylton Admitting Unavailable Obie Hylton Attending Unavailable Roni Dahl [facility] Care Unavailable Roni Dahl [facility] Care Unavailable Nuvia Sanchez Admitting Unavailable Nuvia Sanchez Attending Unavailable Roni Dahl [facility] Care Unavailable Obie Hylton Admitting Unavailable Obie Hylton Attending Unavailable Allergies Allergy Classification Reported Allergen(s) Allergy Type Date of Onset Reaction(s) Facility hydroCHLOROthiazide (6 sources) hydroCHLOROthiazide Drug Allergy 2019 [facility] Latex (6 sources) Latex Substance Allergy [...] (6 sources) Sulfur Drug Allergy 2019 Itching [facility] Triamterene (6 sources) Triamterene Drug Allergy 2018 Rash [facility] WHEAT DEXTRIN (6 sources) WHEAT DEXTRIN Drug Allergy 2010 [facility] (1 source) escitalopram; Translations: [ESCITALOPRAM OXALATE] Drug Allergy [address] [facility] Repository (20 sources) morphine; Translations: [MORPHINE] Drug Allergy 2007 Other (See Comments), Vomiting (disorder), GI Intolerance, Other [facility] Repository (8 sources) Sulfonamides (Antibiotic); Translations: [SULFA (SULFONAMIDE ANTIBIOTICS)] Propensity to adverse reactions to drug (disorder) 2007 Hives [facility] Repository (1 source) GLUTEN FLOUR; Translations: [GLUTEN FLOUR] Propensity to adverse reactions to food (disorder) [address] [facility] Repository (20 sources) Escitalopram; Translations: [ESCITALOPRAM] Drug Allergy 2007 Itching, Rash [facility] [place] [place] (20 sources) Ibuprofen; Translations: [ibuprofen] Drug Allergy 2018 Rash, GI intolerance [facility] [place] [place] (20 sources) Latex; Translations: [LATEX] Propensity to adverse reactions to drug 2010 Itching, Eruption of skin (disorder), Rash, Other (See Comments) [facility] [place], [place] (20 sources) Sulfonamides (Antibiotic) Propensity to adverse reactions to drug 2007 Other (See Comments) [facility] [place], [place] (20 sources) Triamterene; Translations: [triamterene] Drug Allergy 2018 Rash, Eruption of skin (disorder) [place], [place] Comment on above: dyazide or ibuprofen caused the rash-taken off both because not sure which one caused the problem (20 sources) WHEAT DEXTRIN; Translations: [Wheat] Drug Allergy 2010 Itching [place], [place] (20 sources) hydroCHLOROthiazide; Translations: [HYDROCHLOROTHIAZIDE] Drug Allergy 2018 Rash [place], [place] Comment on above: dyazide or ibuprofen caused the rash-taken off both because not sure which one caused the problem (20 sources) Sulfacetamide Drug Allergy 2018 Itching [place] (20 sources) Sulfur; Translations: [SULFUR] Drug Allergy 2018 Itching [place] (20 sources) Food Propensity to adverse reactions to drug 2021 [facility] (10 sources) Gluten; Translations: [Glutens] Food allergy Upset stomach (finding) [facility] (9 sources) Sulfamethoxazole; Translations: [sulfamethoxazole] Drug Allergy Eruption of skin (disorder) [facility] (17 sources) Sulfamethoxazole / Trimethoprim; Translations: [sulfamethoxazole-tri methoprim] Drug Allergy 2022 Rash, Other (See Comments) [facility] [employer] [facility] (16 sources) Sulfacetamide / Sulfur Drug Allergy Unknown [employer] Other (20 sources) Sulfonamides (Antibiotic) Propensity to adverse reactions to drug 2007 Other (See Comments), Itching, Hives, Rash [facility] (7 sources) Naproxen; Translations: [naproxen] Drug Allergy Unknown [facility] (19 sources) Wheat gluten extract Drug Allergy 2022 Nausea And Vomiting [facility] (2 sources) Morphine Drug Allergy Unknown [employer] Other (2 sources) Sulfamethoxazole / Trimethoprim; Translations: [SULFAMETHOXAZOLE-TRI METHOPRIM] Drug Allergy 2022 [facility] Repository (1 source) Wheat bran; Translations: [WHEAT BRAN] Propensity to adverse reactions to drug (disorder) 2010 [facility] Repository (1 source) GLUTEN PROTEIN; Translations: [GLUTEN PROTEIN] Propensity to adverse reactions to drug (disorder) 2017 [facility] Repository (6 sources) Gluten Allergy to substance 2017 GI intolerance, Itching [facility] (6 sources) hydroCHLOROthiazide Drug Allergy 2019 Rash [facility] (6 sources) Latex Propensity to adverse reactions 2010 Itching, Rash [facility] (6 sources) Triamterene Drug Allergy 2018 Rash [facility] (2 sources) Wheat preparation Drug Allergy 2010 Itching [facility] (1 source) Sulfonamides (Antibiotic); Translations: [sulfa drugs] Propensity to adverse reactions to drug (disorder) [facility] Repository (1 source) Escitalopram Drug Allergy 2022 [facility] Repository (1 source) hydroCHLOROthiazide Drug Allergy 2022 [facility] Repository (1 source) Ibuprofen Drug Allergy 2022 [facility] Repository (1 source) Latex Drug allergy (disorder) 2022 [facility] Repository (1 source) Sulfacetamide Drug Allergy 2022 [facility] Repository (1 source) Sulfur Drug Allergy 2022 [facility] Repository (1 source) Triamterene Drug Allergy 2022 [facility] Repository Medications Current Medications Medication Drug [...] for pain Dx: M75.101 Duration: 7 days, [facility]/pharmacy #[id number], 162, cm, 07/17/21 12:14:00 EST, Height/Length Dosing, 105.2, kg, 07/17/21 12:14:00 EST, [place]... Start Date: 07/28/21 Status: Ordered Start: 07-28-2021 Percocet 325 m g-5 mg Tab See Instructions, as needed for pain, 40 tab(s), Refill(s) 0, 1-2 orally every 4-6hrs as needed for pain Dx: M75.101 Duration: 7 days, [facility]/pharmacy #[id number], 162, cm, 07/17/21 12:14:00 EST, [...] 09, 2018 11:00pm Azelastine-Fluticasone 137-5 0 mcg/spray [place],Non-Aerosol (2 sources) Start: 01-10-2018 Azelastine-Flu ticasone 137-50 mcg/spray [place],Non-Aerosol Active 1 SPRAY INTRANASAL Twice daily as needed for Nasal Congestion January 10, 2018 12:00am Start: 01-10-2018 Azelastine-Flu ticasone 137-50 mcg/spray [place],Non-Aerosol Active 1 SPRAY INTRANASAL Twice daily as needed for Nasal Congestion January 09, 2018 11:00pm Rnengctsmt-Zoqcbqleosi-AcGt (16 sources) Azelastine-Fluti casone-NaCl Active azithromycin 250 [...] Active Start: 08-05-2024 take 1 capsule by [facility] [...] bedtime), # 90 tab(s), Refills(s) 6, Pharmacy: [facility] #[id number], 162, cm, 09/16/23 10:47:00 EDT, Height/Length Dosing, [...] 0 05/30/2019 Active fluticasone 0.05 mg/inh Nasal [place] (8 sources) Start: 03-01-2021 fluticasone 0.05 mg/inh Nasal [place] 50 mcg, Nasal, Daily, Refill(s) 0, Allergy [...] Start: 07-17-2021 take 1 capsule by mo [facility] once daily Metamucil Fibre Therapy capsule, [...] 20 capsule 0 10/14/2021 10/24/2021 Active nystatin 662072 unt/ml oral suspension (20 sources) Polyene Antifungal Start: 11-25-2024 nystatin (MYCOSTATIN) 686698 UNIT/ML suspension 11/25/2024 Active Start: 10-18-2023 End: 10-28-2023 take 5 mL by mouth four times daily nystatin (MYCOSTATIN) 103165 UNIT/ML suspension Take 5 mLs by mouth 4 times daily for 10 days Swish and swallow 200 mL 0 10/18/2023 10/28/2023 Active Start: 01-30-2023 take 4 mL by mouth f our times daily Nystatin 523743 UNIT/ML 4 ml swish and swallow Mouth/Throat Four times a day for 14 days Jan, Not-Taking Start: 12-20-2022 take 5 mL by mouth f our times daily nystatin (MYCOSTATIN) 175630 UNIT/ML suspension Take 5 mLs by mouth 4 times daily Swish and swallow. 200 mL 0 02/27/2023 Active Start: 11-25-2022 End: 11-25-2022 take 5 mL by mouth four times daily nystatin (MYCOSTATIN) 218400 UNIT/ML suspension Take 5 mLs by mouth 4 times daily Swish and swallow. 200 mL 0 11/25/2022 11/25/2022 Discontinued (DUPLICATE) Start: 08-15-2022 take 5 mL by mouth f our times daily nystatin (MYCOSTATIN) 485849 UNIT/ML suspension take 5 milliliters by mouth four times a day as directed 60 mL 2 08/15/2022 Active Start: 05-29-2022 take 5 mL by mouth f our times daily nystatin (MYCOSTATIN) 466772 UNIT/ML suspension Take 5 mLs by mouth 4 times daily 60 mL 2 05/29/2022 Active Start: 05-29-2022 Start: 02-08-2022 nystatin (MYCO STATIN) 787302 UNIT/GM cream Apply topically 2 times daily Apply topically 2 times daily. 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 infection and poliomyelitis (8 sources) H/O: poliomyelitis [...] ALT [Catalytic activity/Vol] 11 U/L Normal 7-52 [facility] Comment on above: Order Comment: MAHSA GIBSONKW Performed By: #### E SR, CMP, ADDONUAPLUS, CBC #### [place] [address] [place] #### C3, CH50, C4 #### [facility] , Albumin [Mass/volume] in Ser um or Plasma by Bromocresol green (BCG) dye binding methoOrdered By: Obie Hylton on 02-26-2025 Albumin BCG dye [Mass/Vol] 4.2 g/dL 3.5-5.7 [facility] Alkaline phosphatase [Enzyma tic activity/volume] in Serum or PlasmaOrdered By: Obie Hylton on 02-26-2025 ALP [Catalytic activity/Vol] 72 U/L Normal 34-104 [facility] Comment on above: Order Comment: MAHSA LARRY Result Comment: PERF ORMED BY: [place] [address] PATHOLOGIST CREDIT RISK MANAGER CALVIN MILIAN M.D. Performed By: #### E SR, CMP, ADDONUAPLUS, CBC #### [address] #### C3, CH50, C4 #### [facility] , Appearance of UrineOrdered B y: Obie Hylton on 02-26-2025 Appearance (U) Clear Normal Clear [facility] Comment on above: Order Comment: MAHSA LARRY Name Collection Type:: Clean-Voided Midstream Performed By: #### E SR, CMP, ADDONUAPLUS, CBC #### [place] [address] [place] #### C3, CH50, C4 #### [facility] , Aspartate aminotransferase [ Enzymatic activity/volume] in Serum or PlasmaOrdered By: Obie Hylton on 02-26-2025 AST [Catalytic activity/Vol] 15 U/L Normal 13-39 [facility] Comment on above: Order Comment: MAHSA LARRY Performed By: #### E SR, CMP, ADDONUAPLUS, CBC #### [place] [address] [place] #### C3, CH50, C4 #### [facility] , Bacteria [Presence] in Urine by AutomatedOrdered By: Obie Hylton on 02-26-2025 Bacteria Auto Ql (U) Rare [HPF] None Seen [facility] Basophils [#/volume] in Bloo d by Automated countOrdered By: Obie Hylton on 02-26-2025 Basophils (Bld) [#/Vol] 0.0 10*3/uL Normal 0.0-0.2 [facility] Comment on above: Order Comment: [email or web address] Performed By: #### E SR, CMP, ADDONUAPLUS, CBC #### [facility] [address] #### C3, CH50, C4 #### [facility] , Basophils/100 leukocytes in Blood by Automated countOrdered By: Obie Ramirezrow on 02-26-2025 Basophils/100 WBC (Bld) 0.4 % Normal . [facility] Comment on above: Order Comment: [email or web address] Performed By: #### E SR, CMP, ADDONUAPLUS, CBC #### [facility] [address] [place] [address] [place] #### C3, CH50, C4 #### [facility] , Bilirubin Test strip Ql (U)O rdered By: Obie Hylton on 02-26-2025 Bilirubin Ql (U) Negative Negative [facility] Bilirubin.total [Mass/volume ] in Serum or PlasmaOrdered By: Obieradha Hylton on 02-26-2025 Bilirubin [Mass/Vol] 0.5 mg/dL Normal 0.3-1.0 [facility] Comment on above: Order Comment: [email or web address] Performed By: #### E SR, CMP, ADDONUAPLUS, CBC #### [facility] [address] [place] [address] [place] #### C3, CH50, C4 #### [facility] , Calcium [Mass/volume] in Ser um or PlasmaOrdered By: Obie Hylton on 02-26-2025 Calcium [Mass/Vol] 9.1 mg/dL Normal 8.6-10.3 [facility] Comment on above: Order Comment: [email or web address] Performed By: #### E SR, CMP, ADDONUAPLUS, CBC #### [place] [address] [place] #### C3, CH50, C4 #### [facility] , Carbon dioxide, total [Moles /volume] in Serum or PlasmaOrdered By: Obie Hylton on 02-26-2025 CO2 [Moles/Vol] 27.5 mmol/L Normal 21.0-31.0 [facility] Comment on above: Order Comment: [email or web address] Performed By: #### E SR, CMP, ADDONUAPLUS, CBC #### [address] #### C3, CH50, C4 #### [facility] , Chloride [Moles/volume] in S liat or PlasmaOrdered By: Obie Hylton on 02-26-2025 Chloride [Moles/Vol] 107 mmol/L Normal 98-107 [facility] Comment on above: Order Comment: [email or web address] Performed By: #### E SR, CMP, ADDONUAPLUS, CBC #### [place] [address] [place] #### C3, CH50, C4 #### [facility] , Color of Urine by AutoOrdere d By: Obie Hylton on 02-26-2025 Color (U) Light-yellow Normal Yellow [facility] Comment on above: Order Comment: [email or web address] Name Collection Type:: Clean-Voided Midstream Performed By: #### E SR, CMP, ADDONUAPLUS, CBC #### [place] [address] [place] #### C3, CH50, C4 #### [facility] , Complement C3on 02-26-2025 Complement C3 114 mg/dL Normal 82-167 [facility] Comment on above: Order Comment: [email or web address] Result Comment: Perf ormed at: CB - [facility] [place] [address], [place], [place] [id number] Client Representative: Usman Draper PhD, Phone: [phone] Performed By: #### E SR, CMP, ADDONUAPLUS, CBC #### [address] #### C3, CH50, C4 #### [facility] , Complement C4on 02-26-2025 Complement C4 24 mg/dL Normal 12-38 [facility] Comment on above: Order Comment: [email or web address] Result Comment: Perf ormed at: [address] [id number] Client Representative: Usman Draper PhD, Phone: [phone] PERFORMED BY: [place] [address] PATHOLOGIST CREDIT RISK MANAGER CALVIN MILIAN M.D. Performed By: #### E SR, CMP, ADDONUAPLUS, CBC #### [address] #### C3, CH50, C4 #### [facility] , Complement Total (CH50)on Complement Total (CH50) 55 Normal >41 [facility] Comment on above: Order [...] determine out of range values. Performed at: [address] [id number] Client Representative: Usman Draper PhD, Phone: [phone] PERFORMED BY: [place] [address] PATHOLOGIST CREDIT RISK MANAGER CALVIN S MAICOL M.D. Performed By: #### E SR, CMP, ADDONUAPLUS, CBC #### [place] [address] [place] #### C3, CH50, C4 #### [facility] , Complete Blood Count Auto Di ffon 02-26-2025 Mean Corpuscular HGB Conc 34.1 g/dL Normal 32.0-35.0 [facility] Comment on above: Order Comment: [email or web address] Performed By: #### E SR, CMP, ADDONUAPLUS, CBC #### [place] [address] [place] #### C3, CH50, C4 #### [facility] , NRBC% 0.0 /100{WBC} Normal 0-0.5 [facility] Comment on above: Order Comment: [email or web address] Performed By: #### E SR, CMP, ADDONUAPLUS, CBC #### [facility] [address] [place] [address] [place] #### C3, CH50, C4 #### [facility] , White Blood Count 6.8 [CFU]/mL Normal 3.8-11.[address] [facility] Comment on above: Order Comment: [email or web address] Performed By: #### E SR, CMP, ADDONUAPLUS, CBC #### [place] [address] [place] #### C3, CH50, C4 #### [facility] , Comprehensive Metabolic Pane trevor 02-26-2025 Albumin [Mass/Vol] 4.2 g/dL Normal 3.5-5.7 [facility] Comment on above: Order Comment: [email or web address] Performed By: #### E SR, CMP, ADDONUAPLUS, CBC #### [place] [address] [place] #### C3, CH50, C4 #### [facility] , GFR/1.73 sq M.predicted MDRD (S/P/Bld) [Vol rate/Area] 41.957 mL/min/{1.73_m2} Normal [facility] Comment on above: Order Comment: [email or web address] Performed By: #### E SR, CMP, ADDONUAPLUS, CBC #### [place] [address] [place] #### C3, CH50, C4 #### [facility] , Creatinine [Mass/volume] in Serum or PlasmaOrdered By: Obie Hylton on 02-26-2025 Creatinine [Mass/Vol] 1.29 mg/dL High 0.60-1.20 [facility] Comment on above: Order Comment: [email or web address] Performed By: #### E SR, CMP, ADDONUAPLUS, CBC #### [place] [address] [place] #### C3, CH50, C4 #### [facility] , Dipstick and Microscopicon 0 02-26-2025 Bacteria,Urine Rare Normal None Seen [facility] Comment on above: Order Comment: FASTI [email or web address] Name Collection Type:: Clean-Voided Midstream Performed By: #### E SR, CMP, ADDONUAPLUS, CBC #### [place] [address] [place] #### C3, CH50, C4 #### [facility] , Bilirubin,Urine Negative Normal Negative [facility] Comment on above: Order Comment: FASTI [email or web address].JKW Name Collection Type:: Clean-Voided Midstream Performed By: #### E SR, CMP, ADDONUAPLUS, CBC #### [facility] [address] [place] [address] [place] #### C3, CH50, C4 #### [facility] , Glucose Ql (U) Normal Normal Normal [facility] Comment on above: Order Comment: FASTI [email or web address].JKW Name Collection Type:: Clean-Voided Midstream Performed By: #### E SR, CMP, ADDONUAPLUS, CBC #### [place] [address] [place] #### C3, CH50, C4 #### [facility] , Hyaline Casts,Urine None Normal 0-8 [facility] Comment on above: Order Comment: FASTI [email or web address].JKW Name Collection Type:: Clean-Voided Midstream Performed By: #### E SR, CMP, ADDONUAPLUS, CBC #### [address] #### C3, CH50, C4 #### [facility] , Mucus,Urine Rare Normal [facility] Comment on above: Order Comment: FASTI [email or web address] Name Collection Type:: Clean-Voided Midstream Result Comment: PERF ORMED BY: [place] [address] PATHOLOGIST CREDIT RISK MANAGER CALVIN MILIAN M.D. Performed By: #### E SR, CMP, ADDONUAPLUS, CBC #### [address] #### C3, CH50, C4 #### [facility] , Nitrite,Urine Negative Normal Negative [facility] Comment on above: Order Comment: FASTI [email or web address].JKW Name Collection Type:: Clean-Voided Midstream Performed By: #### E SR, CMP, ADDONUAPLUS, CBC #### [place] [address] [place] #### C3, CH50, C4 #### [facility] , Occult Blood,Urine Trace Normal Negative [facility] Comment on above: Order Comment: FASTI [email or web address].JKW Name Collection Type:: Clean-Voided Midstream Performed By: #### E SR, CMP, ADDONUAPLUS, CBC #### [place] [address] [place] #### C3, CH50, C4 #### [facility] , Protein,Urine Negative Normal Negative [facility] Comment on above: Order Comment: FASTI [email or web address].JKW Name Collection Type:: Clean-Voided Midstream Performed By: #### E SR, CMP, ADDONUAPLUS, CBC #### [address] #### C3, CH50, C4 #### [facility] , RBC,Urine 3-4 Normal 0-4 [facility] Comment on above: Order Comment: FASTI [email or web address].JKW Name Collection Type:: Clean-Voided Midstream Performed By: #### E SR, CMP, ADDONUAPLUS, CBC #### [address] #### C3, CH50, C4 #### [facility] , Specificy [place],Urine 1.020 Normal 1.001-1.03 0 [facility] Comment on above: Order Comment: FASTI [email or web address].JKW Name Collection Type:: Clean-Voided Midstream Performed By: #### E SR, CMP, ADDONUAPLUS, CBC #### [address] #### C3, CH50, C4 #### [facility] , Squamous Epithelial Cell,Urine 3-4 Normal 0-2 [facility] Comment on above: Order Comment: FASTI [email or web address].JKW Name Collection Type:: Clean-Voided Midstream Performed By: #### E SR, CMP, ADDONUAPLUS, CBC #### [place] [address] [place] #### C3, CH50, C4 #### [facility] , Urobilinogen,Urine Normal Normal Normal [facility] Comment on above: Order Comment: FASTI [email or web address].JKW Name Collection Type:: Clean-Voided Midstream Performed By: #### E SR, CMP, ADDONUAPLUS, CBC #### [address] [place] [address] [place] #### C3, CH50, C4 #### [facility] , WBC,Urine 1-2 Normal 0-4 [facility] Comment on above: Order Comment: FASTI [email or web address].JKW Name Collection Type:: Clean-Voided Midstream Performed By: #### E SR, CMP, ADDONUAPLUS, CBC #### [address] #### C3, CH50, C4 #### [facility] , Eosinophils [#/volume] in Bl ood by Automated countOrdered By: Obie Hylton on 02-26-2025 Eosinophils (Bld) [#/Vol] 0.1 10*3/uL Normal 0.0-0.45 [facility] Comment on above: Order Comment: [email or web address] Performed By: #### E SR, CMP, ADDONUAPLUS, CBC #### [address] #### C3, CH50, C4 #### [facility] , Eosinophils/100 leukocytes i n Blood by Automated countOrdered By: Obie Hylton on 02-26-2025 Eosinophils/100 WBC (Bld) 1.2 % Normal . [facility] Comment on above: Order Comment: [email or web address] [email or web address] Performed By: #### E SR, CMP, ADDONUAPLUS, CBC #### [place] [address] [place] #### C3, CH50, C4 #### [facility] , Epithelial cells.squamous [# /area] in Urine sediment by Automated countOrdered By: Obie Hylton on 02-26-2025 Epithelial cells.squamous Auto (Urine sed) [#/Area] 3-4 [HPF] High 0-2 [facility] Erythrocyte Sedimentation Ra heather 02-26-2025 ESR (Bld) [Velocity] 21 mm/h Normal 0-29 [facility] [facility] Comment on above: Order Comment: [email or web address] Result Comment: PERF ORMED BY: [place] [address] PATHOLOGIST CREDIT RISK MANAGER ACLVIN MILIAN M.D. Performed By: #### E SR, CMP, ADDONUAPLUS, CBC #### [address] #### C3, CH50, C4 #### [facility] , Erythrocyte distribution wid th [Ratio] by Automated countOrdered By: Obie Hylton on 02-26-2025 Erythrocyte distribution width (RBC) [Ratio] 14.8 % Normal 11.9-15.3 [facility] Comment on above: Order Comment: [email or web address] Performed By: #### E SR, CMP, ADDONUAPLUS, CBC #### [place] [address] [place] #### C3, CH50, C4 #### [facility] , Erythrocyte sedimentation ra te by Photometric methodOrdered By: Obie Hylton on 02-26-2025 ESR Photometric method (Bld) [Velocity] 21 mm/hr [facility] Erythrocytes [#/area] in Uri ne sediment by Automated countOrdered By: Obie Hylton on 02-26-2025 RBC Auto (Urine sed) [#/Area] 3-4 [HPF] 0-4 [facility] Erythrocytes [#/volume] in B lood by Automated countOrdered By: Obie Hylton on 02-26-2025 RBC (Bld) [#/Vol] 4.27 10*6/uL Normal 3.60-5.00 [facility] Comment on above: Order Comment: [email or web address] Performed By: #### E SR, CMP, ADDONUAPLUS, CBC #### [place] [address] [place] #### C3, CH50, C4 #### [facility] , Glomerular filtration rate [ Volume Rate/Area] in Serum, Plasma or Blood by CreatinineOrdered By: Obie Hylton on 02-26-2025 Glomerular filtration rate [Volume Rate/Area] in Serum, Plasma or Blood by Creatinine 41.957 mL/Min [facility] Glucose [Mass/volume] in Ser um or PlasmaOrdered By: Obie Hylton on 02-26-2025 Glucose [Mass/Vol] 90 mg/dL Normal 70-100 [facility] Comment on above: ADA recommended refe rence rangeRandom Glucose Reference Range is dependent on time and content of last meal. Glucose of more than 200 mg/dL in a nonstressed, ambulatory subject supports the diagnosis of Diabetes Mellitus. Order Comment: MAHSA [email or web address] Result Comment: [place] Glucose Reference Range is dependent on time and content of last meal. Glucose of more than 200 mg/dL in a nonstressed, ambulatory subject supports the diagnosis of Diabetes Mellitus. ADA recommended reference range Performed By: #### E SR, CMP, ADDONUAPLUS, CBC #### [facility] [address] [place] [address] [place] #### C3, CH50, C4 #### [facility] , Glucose [Mass/volume] in Uri ne by Test stripOrdered By: Obie Hylton on 02-26-2025 Glucose Test strip (U) [Mass/Vol] Normal mg/dL Normal [facility] Hematocrit [Volume Fraction] of Blood by Automated countOrdered By: Obie Hylton on 02-26-2025 Hematocrit (Bld) [Volume fraction] 38.6 % Normal 34.0-46.4 [facility] Comment on above: Order Comment: [email or web address] Performed By: #### E SR, CMP, ADDONUAPLUS, CBC #### [facility] [address] [place] [address] [place] #### C3, CH50, C4 #### [facility] , Hemoglobin Test strip Ql (U) Ordered By: Obie Hylton on 02-26-2025 Hemoglobin Ql (U) Trace High Negative [facility] Hemoglobin [Mass/volume] in BloodOrdered By: Obie Hylton on 02-26-2025 Hemoglobin (Bld) [Mass/Vol] 13.2 g/dL Normal 11.8-15.4 [facility] Comment on above: Order Comment: [email or web address] Performed By: #### E SR, CMP, ADDONUAPLUS, CBC #### [facility] [address] [place] [address] [place] #### C3, CH50, C4 #### [facility] , Hyaline casts [#/area] in Ur ine sediment by Automated countOrdered By: Obie Hylton on 02-26-2025 Hyaline casts Auto (Urine sed) [#/Area] None [LPF] 0-8 [facility] Ketones [Presence] in Urine by Test stripOrdered By: Obie Hylton on 02-26-2025 Ketones Ql (U) Negative Normal Negative [facility] Comment on above: Order Comment: [email or web address] Name Collection Type:: Clean-Voided Midstream Performed By: #### E SR, CMP, ADDONUAPLUS, CBC #### [facility] [address] [place] [address] [place] #### C3, CH50, C4 #### [facility] , Leukocyte esterase [Presence ] in Urine by Test stripOrdered By: Obie Hylton on 02-26-2025 Leukocyte esterase Test strip Ql (U) Negative Normal Negative [facility] Comment on above: Order Comment: [email or web address] Name Collection Type:: Clean-Voided Midstream Performed By: #### E SR, CMP, ADDONUAPLUS, CBC #### [facility] [address] [place] [address] [place] #### C3, CH50, C4 #### [facility] , Leukocytes [#/area] in Urine sediment by Automated countOrdered By: Obie Hylton on 02-26-2025 WBC Auto (Urine sed) [#/Area] 1-2 [HPF] 0-4 [facility] Leukocytes [#/volume] correc pepito for nucleated erythrocytes in Blood by Automated counOrdered By: Obie Hylton on 02-26-2025 WBC corrected for nucl RBC Auto (Bld) [#/Vol] 6.8 10*3/uL 3.8-11.6 [facility] Leukocytes [#/volume] in Blo od by Automated countOrdered By: Obie Warner on 02-26-2025 WBC (Bld) [#/Vol] 6.8 10*3/uL Normal 3.8-11.6 [facility] Comment on above: Order Comment: [email or web address] Performed By: #### E SR, CMP, ADDONUAPLUS, CBC #### [place] [address] [place] #### C3, CH50, C4 #### [facility] , Lymphocytes [#/volume] in Bl ood by Automated countOrdered By: Obie Hylton on 02-26-2025 Lymphocytes (Bld) [#/Vol] 1.4 10*3/uL Normal 1.00-4.8 [facility] Comment on above: Order Comment: [email or web address] Performed By: #### E SR, CMP, ADDONUAPLUS, CBC #### [place] [address] [place] #### C3, CH50, C4 #### [facility] , Lymphocytes/100 leukocytes i n Blood by Automated countOrdered By: Obie Hylton on 02-26-2025 Lymphocytes/100 WBC (Bld) 21.1 % Normal . [facility] Comment on above: Order Comment: [email or web address] Performed By: #### E SR, CMP, ADDONUAPLUS, CBC #### [place] [address] [place] #### C3, CH50, C4 #### [facility] , MCH [Entitic mass] by Automa pepito countOrdered By: Obie Warner on 02-26-2025 MCH (RBC) [Entitic mass] 30.9 pg Normal 24.7-34.3 [facility] Comment on above: Order Comment: [email or web address] Performed By: #### E SR, CMP, ADDONUAPLUS, CBC #### [place] [address] [place] #### C3, CH50, C4 #### [facility] , MCHC Auto (RBC) [Mass/Vol]Or dered By: Obie Warner on 02-26-2025 MCHC (RBC) [Mass/Vol] 34.1 g/dL 32.0-35.0 [facility] MCV [Entitic volume] by Auto mated countOrdered By: Obie Ramirezrow on 02-26-2025 MCV (RBC) [Entitic vol] 90.4 fL Normal 80-100 [facility] Comment on above: Order Comment: [email or web address] Performed By: #### E SR, CMP, ADDONUAPLUS, CBC #### [address] #### C3, CH50, C4 #### [facility] , Monocytes [#/volume] in Bloo d by Automated countOrdered By: Obie Hylton on 02-26-2025 Monocytes (Bld) [#/Vol] 0.6 10*3/uL Normal 0.0-0.8 [facility] Comment on above: Order Comment: [email or web address] Performed By: #### E SR, CMP, ADDONUAPLUS, CBC #### [place] [address] [place] #### C3, CH50, C4 #### [facility] , Monocytes/100 leukocytes in Blood by Automated countOrdered By: Obie Hylton on 02-26-2025 Monocytes/100 WBC (Bld) 9.4 % Normal . [facility] Comment on above: Order Comment: [email or web address] Performed By: #### E SR, CMP, ADDONUAPLUS, CBC #### [place] [address] [place] #### C3, CH50, C4 #### [facility] , Mucus [Presence] in Urine by AutomatedOrdered By: Obie Hylton on 02-26-2025 Mucus Auto Ql (U) Rare [LPF] [facility] Neutrophils [#/volume] in Bl ood by Automated countOrdered By: Obie Hylton on 02-26-2025 Neutrophils (Bld) [#/Vol] 4.6 10*3/uL Normal 1.8-7.7 [facility] Comment on above: Order Comment: [email or web address] Performed By: #### E SR, CMP, ADDONUAPLUS, CBC #### [facility] [address] #### C3, CH50, C4 #### [facility] , Neutrophils/100 leukocytes i n Blood by Automated countOrdered By: Obie Ramirezrow on 02-26-2025 Neutrophils/100 WBC (Bld) 67.9 % Normal . [facility] Comment on above: Order Comment: [email or web address] Performed By: #### E SR, CMP, ADDONUAPLUS, CBC #### [address] #### C3, CH50, C4 #### [facility] , Nitrite Test strip Ql (U)Ord ered By: Obie Hylton on 02-26-2025 Nitrite Ql (U) Negative Negative [facility] No Panel InformationOrdered By: Obie Hylton on 02-26-2025 Pharmacy Creatinine Clearance (Chem N/A [facility] Nucleated erythrocytes [Pres ence] in Blood by Automated countOrdered By: Obie Warner on 02-26-2025 Nucleated RBC Auto Ql (Bld) 0.0 /100{WBC} 0-0.5 [facility] Platelet mean volume [Entiti c volume] in Blood by Automated countOrdered By: Obei Ramirezrow on 02-26-2025 Platelet mean volume (Bld) [Entitic vol] 8.8 fL Normal 6.3-10.7 [facility] Comment on above: Order Comment: [email or web address] Performed By: #### E SR, CMP, ADDONUAPLUS, CBC #### [facility] [address] [place] [address] #### C3, CH50, C4 #### [facility] , Platelets [#/volume] in Bloo d by Automated countOrdered By: Obie Ramirezrow on 02-26-2025 Platelets (Bld) [#/Vol] 212 10*3/uL Normal 150-450 [facility] Comment on above: Order Comment: [email or web address] Performed By: #### E SR, CMP, ADDONUAPLUS, CBC #### [address] #### C3, CH50, C4 #### [facility] , Potassium [Moles/volume] in Serum or PlasmaOrdered By: Obieradha Hylton on 02-26-2025 Potassium [Moles/Vol] 4.3 mmol/L Normal 3.5-5.1 [facility] Comment on above: Order Comment: FASTPacheco [email or web address] Performed By: #### E SR, CMP, ADDONUAPLUS, CBC #### [address] #### C3, CH50, C4 #### [facility] , Protein Test strip (U) [Mass /Vol]Ordered By: Obieradha Hylton on 02-26-2025 Protein (U) [Mass/Vol] Negative Negative [facility] Protein [Mass/volume] in Ser um or PlasmaOrdered By: Obie Hylton on 02-26-2025 Protein [Mass/Vol] 6.9 g/dL Normal 6.4-8.9 [facility] Comment on above: Order Comment: [email or web address] Performed By: #### E SR, CMP, ADDONUAPLUS, CBC #### [facility] [address] [place] [address] [place] #### C3, CH50, C4 #### [facility] , Serum globulin measurement b y calculation (mass/volume)Ordered By: Obie Hylton on 02-26-2025 Globulin (S) [Mass/Vol] 2.7 g/dL [facility] Comment on above: Order Comment: [email or web address] Performed By: #### E SR, CMP, ADDONUAPLUS, CBC #### [place] [address] [place] #### C3, CH50, C4 #### [facility] , Serum or plasma albumin/glob ulin mass ratioOrdered By: Obie Hylton on 02-26-2025 Albumin/Globulin [Mass ratio] 1.6 {ratio} [facility] Comment on above: Order Comment: [email or web address] Performed By: #### E SR, CMP, ADDONUAPLUS, CBC #### [address] #### C3, CH50, C4 #### [facility] , Serum or plasma anion gap de terminationOrdered By: Obie Hylton on 02-26-2025 Anion gap [Moles/Vol] 9.8 mmol/L Normal 6.0-15.0 [facility] Comment on above: Order Comment: [email or web address] Performed By: #### E SR, CMP, ADDONUAPLUS, CBC #### [address] #### C3, CH50, C4 #### [facility] , Sodium [Moles/volume] in Ser um or PlasmaOrdered By: Obie Hylton on 02-26-2025 Sodium [Moles/Vol] 140 mmol/L Normal 136-145 [facility] Comment on above: Order Comment: [email or web address] Performed By: #### E SR, CMP, ADDONUAPLUS, CBC #### [facility] [address] [place] [address] [place] #### C3, CH50, C4 #### [facility] , Specific gravity Test strip (U) [Rel density]Ordered By: Obie Hylton on 02-26-2025 Specific gravity (U) [Rel density] 1.020 1.001-1.03 0 [facility] Urea nitrogen [Mass/volume] in Serum or PlasmaOrdered By: Obie Hylton on 02-26-2025 Urea nitrogen [Mass/Vol] 31 mg/dL High 7-25 [facility] Comment on above: Order Comment: MAHSA GIBSONKW Performed By: #### E SR, CMP, ADDONUAPLUS, CBC #### [facility] [address] [place] [address] [place] #### C3, CH50, C4 #### [facility] , Urobilinogen Test strip (U) [Mass/Vol]Ordered By: Obie Hylton on 02-26-2025 Urobilinogen (U) [Mass/Vol] Normal mg/dL Normal [facility] pH of Urine by Test stripOrd ered By: Obie Hylton on 02-26-2025 pH (U) 6.5 [pH] Normal 5.0-9.0 [facility] Comment on above: Order Comment: MAHSA CHIANGJKW Name Collection Type:: Clean-Voided Midstream Performed By: #### E SR, CMP, ADDONUAPLUS, CBC #### [facility] [address] [place] [address] [place] #### C3, CH50, C4 #### [facility] [...] SatFeb 05, 2025 10:31:28 AM EDT Normal [facility] Comment on above: Order Comment: Injur y/Trauma or Illness?:Illness/Other How long have you had these symptoms (acute/chronic)?:Acute Reason for exam?:cough History of cancer?:u Surgeries, chemotherapy, or radiation?:u Type of Exam?:Initial Additional signs and symptoms?:congestion x 1 month XR Chest PA and Lateral and AP lateral-decubituson 02-05-2025 There is no acute cardiopulmonary process. Workstation ID: [id number] [employer] RIS EXAMINATION: XR CHEST AP/PA AND LAT [...] the right upper abdomen suggesting a cholecystectomy. [employer] Мария [place] MD - 02/05/2025 EXAMINATION: XR [...] no acute cardiopulmonary process. Workstation ID: [id number] [facility] Radiology Study observation (narrative) [facility] XR Chest PA and Lateral and AP lateral-decubitusOrdered By: Мария [place] on 02-05-2025 [facility] Work Phone: Urinalysis w/ Microon 2024 Bilirubin, SemiQt,Ur Negative Normal NEG [facility] Comment on above: Performed By: #### U AMIC #### [facility] [address] [place] [address] Client Representative: Christian Muir MD Blood, Urine Negative Normal NEG [facility] Comment on above: Performed By: #### U AMIC #### [facility] [address] [place] [address] Client Representative: Christian Muir MD Clarity (U) Clear Normal CLEAR [facility] Comment on above: Performed By: #### U AMIC #### [facility] [address] [place] [address] Client Representative: Christian Muir MD Color (U) Yellow Normal YEL [facility] Comment on above: Performed By: #### U AMIC #### [facility] [address] [place] [address] Client Representative: Christian Muir MD Epithelial cells LM Ql (Urine sed) 2 TO 5 Normal 0-25 [facility] Comment on above: Performed By: #### U AMIC #### [facility] [address] [place] [address] Client Representative: Christian Muir MD Glucose Ql (U) Negative Normal NEG [facility] Hospital Comment on above: Performed By: #### U AMIC #### [facility] [address] [place] [address] Dr[place], [place] [phone] Client Representative: Christian Muir MD Ketones Ql (U) Negative Normal NEG [facility] Comment on above: Performed By: #### U AMIC #### [facility] [address] [place] [address] Dr[place], [place] [phone] Client Representative: Christian Muir MD Leukocyte esterase Test strip Ql (U) Negative Normal NEG [facility] Comment on above: Performed By: #### U AMIC #### [address] [place], [place] [id number] Client Representative: Christian Muir MD Nitrite,Ur Negative Normal NEG [facility] Comment on above: Performed By: #### U AMIC #### [facility] [address] [place] [address] Dr[place], [place] [phone] Client Representative: Christian Muir MD PH,Ur 6.0 Normal 5.0-9.0 [facility] Comment on above: Performed By: #### U AMIC #### [address] [place], [place] [phone] Client Representative: Christian Muir MD Protein Ql (U) Negative Normal NEG [facility] Comment on above: Performed By: #### U AMIC #### [facility] [address] [place] [address] Dr. [place], [place] [phone] Client Representative: Christian Muir MD Spec. [place],Ur 1.020 Normal 1.010-1.02 0 [facility] Comment on above: Performed By: #### U AMIC #### [facility] [address] [place] [address] Dr. [place], [place] [phone] Client Representative: Christian Muir MD Urine RBC's 0 TO 2 Normal 0-2 [facility] Comment on above: Performed By: #### U AMIC #### [facility] [address] [place] [address] Client Representative: Christian Muir MD Urine WBC's 0 TO 2 Normal 0-5 [facility] Comment on above: Performed By: #### U AMIC #### [facility] [address] [place] [address] Client Representative: Christian Muir MD Urobilinogen,Ur Normal Normal 0.0-1.0 [facility] Comment on above: Performed By: #### U AMIC #### [facility] [address] [place] [address] Client Representative: Christian Muir MD Urinalysis with Microscopico n 12-22-2024 Bilirubin Ql (U) Negative NEGATIVE [facility] Clarity (U) Clear Clear [facility] Color (U) Yellow Yellow [facility] Epithelial cells LM.HPF (Urine sed) [#/Area] 2 TO 5 [facility] Glucose Test strip (U) [Mass/Vol] Negative NEGATIVE mg/dL [facility] Hemoglobin Auto test strip Ql (U) Negative NEGATIVE [facility] Ketones (U) [Mass/Vol] Negative NEGATIVE mg/dL [facility] Leukocyte esterase Test strip Ql (U) Negative NEGATIVE [facility] Nitrite Ql (U) Negative NEGATIVE [facility] pH (U) 6 [pH] 5.0 - 9.0 [facility] Protein (U) [Mass/Vol] Negative NEGATIVE mg/dL [facility] RBC LM.HPF (Urine sed) [#/Area] 0 TO 2 [facility] Specific gravity (U) [Rel density] 1.02 1.010 - 1.020 [facility] Urobilinogen Qn (U) Normal 0.0 - 1. 0 EU/dL [facility] WBC LM.HPF (Urine sed) [#/Area] 0 TO 2 [facility] Appearance of UrineOrdered B y: Nuvia Sanchez on 09-10-2024 Appearance (U) Urine appearance Clear [facility] Bacteria [Presence] in Urine by AutomatedOrdered By: Nuvia Sanchez on 09-10-2024 Bacteria Auto Ql (U) Bacteria [Presence] in Urine by Automated None Seen [facility] Bilirubin Test strip Ql (U)O rdered By: Nuvia Sanchez on 09-10-2024 Bilirubin Ql (U) Bilirubin.total [Pre sence] in Urine by Test strip Negative [facility] Color Auto (U)Ordered By: Rajani Patel on 09-10-2024 Color (U) Color of Urine by Auto Yellow Fi [facility] Dipstick and Microscopicon 0 09-10-2024 Appearance (U) Clear Normal Clear [facility] Comment on above: Order Comment: FASTI [email or web address].JKW Name Collection Type:: Clean-Voided Midstream Performed By: #### E SR, CMP, ADDONUAPLUS, CBC #### [place] [address] [place] #### C3, CH50, C4 #### [facility] , Bacteria,Urine Rare Normal None Seen [facility] Comment on above: Order Comment: FASTI [email or web address].JKW Name Collection Type:: Clean-Voided Midstream Performed By: #### E SR, CMP, ADDONUAPLUS, CBC #### [place] [address] [place] #### C3, CH50, C4 #### [facility] , Bilirubin,Urine Negative Normal Negative [facility] Comment on above: Order Comment: FASTI [email or web address].JKW Name Collection Type:: Clean-Voided Midstream Performed By: #### E SR, CMP, ADDONUAPLUS, CBC #### [facility] [address] [place] [address] [place] #### C3, CH50, C4 #### [facility] , Color (U) Yellow Normal Yellow [facility] Comment on above: Order Comment: FASTI NG.JKW Name Collection Type:: Clean-Voided Midstream Performed By: #### E SR, CMP, ADDONUAPLUS, CBC #### [place] [address] [place] #### C3, CH50, C4 #### [facility] , Glucose Ql (U) Normal Normal Normal [facility] Comment on above: Order Comment: FASTI NG.JKW Name Collection Type:: Clean-Voided Midstream Performed By: #### E SR, CMP, ADDONUAPLUS, CBC #### [address] #### C3, CH50, C4 #### [facility] , Hyaline Casts,Urine None Normal 0-8 [facility] Comment on above: Order Comment: FASTI NG.JKW Name Collection Type:: Clean-Voided Midstream Performed By: #### E SR, CMP, ADDONUAPLUS, CBC #### [address] #### C3, CH50, C4 #### [facility] , Ketones Ql (U) Negative Normal Negative [facility] Comment on above: Order Comment: FASTI NG.JKW Name Collection Type:: Clean-Voided Midstream Performed By: #### E SR, CMP, ADDONUAPLUS, CBC #### [place] [address] [place] #### C3, CH50, C4 #### [facility] , Leukocyte esterase Test strip Ql (U) Negative Normal Negative [facility] Comment on above: Order Comment: FASTI NG.JKW Name Collection Type:: Clean-Voided Midstream Performed By: #### E SR, CMP, ADDONUAPLUS, CBC #### [place] [address] [place] #### C3, CH50, C4 #### [facility] , Mucus,Urine Rare Normal [facility] Comment on above: Order Comment: FASTI NG.JKW Name Collection Type:: Clean-Voided Midstream Result Comment: PERF ORMED BY: [place] [address] PATHOLOGIST CREDIT RISK MANAGER DOMINICK MONTIEL M.D. Performed By: #### E SR, CMP, ADDONUAPLUS, CBC #### [place] [address] [place] #### C3, CH50, C4 #### [facility] , Nitrite,Urine Negative Normal Negative [facility] Comment on above: Order Comment: FASTI NG.JKW Name Collection Type:: Clean-Voided Midstream Performed By: #### E SR, CMP, ADDONUAPLUS, CBC #### [address] #### C3, CH50, C4 #### [facility] , Occult Blood,Urine Negative Normal Negative [facility] Comment on above: Order Comment: FASTI NG.JKW Name Collection Type:: Clean-Voided Midstream Performed By: #### E SR, CMP, ADDONUAPLUS, CBC #### [address] #### C3, CH50, C4 #### [facility] , pH (U) 5.0 [pH] Normal 5.0-9.0 [facility] Comment on above: Order Comment: FASTI NG.JKW Name Collection Type:: Clean-Voided Midstream Performed By: #### E SR, CMP, ADDONUAPLUS, CBC #### [place] [address] [place] #### C3, CH50, C4 #### [facility] , Protein,Urine Negative Normal Negative [facility] Comment on above: Order Comment: FASTI NG.JKW Name Collection Type:: Clean-Voided Midstream Performed By: #### E SR, CMP, ADDONUAPLUS, CBC #### [address] #### C3, CH50, C4 #### [facility] , RBC,Urine 3-4 Normal 0-4 [facility] Comment on above: Order Comment: FASTI NG.JKW Name Collection Type:: Clean-Voided Midstream Performed By: #### E SR, CMP, ADDONUAPLUS, CBC #### [address] #### C3, CH50, C4 #### [facility] , Specificy [place],Urine 1.018 Normal 1.001-1.03 0 [facility] Comment on above: Order Comment: FASTI NG.JKW Name Collection Type:: Clean-Voided Midstream Performed By: #### E SR, CMP, ADDONUAPLUS, CBC #### [address] #### C3, CH50, C4 #### [facility] , Squamous Epithelial Cell,Urine 1-2 Normal 0-2 [facility] Comment on above: Order Comment: FASTI NG.JKW Name Collection Type:: Clean-Voided Midstream Performed By: #### E SR, CMP, ADDONUAPLUS, CBC #### [address] #### C3, CH50, C4 #### [facility] , Uric Acid Crystals,Urine 1+ Normal [facility] Comment on above: Order Comment: FASTI NG.JKW Name Collection Type:: Clean-Voided Midstream Performed By: #### E SR, CMP, ADDONUAPLUS, CBC #### [place] [address] [place] #### C3, CH50, C4 #### [facility] , Urobilinogen,Urine Normal Normal Normal [facility] Comment on above: Order Comment: FASTI [email or web address] Name Collection Type:: Clean-Voided Midstream Performed By: #### E SR, CMP, ADDONUAPLUS, CBC #### [facility] [address] [place] [address] [place] #### C3, CH50, C4 #### [facility] , WBC,Urine 1-2 Normal 0-4 [facility] Comment on above: Order Comment: MAHSA CHIANGJPeteW Name Collection Type:: Clean-Voided Midstream Performed By: #### E SR, CMP, ADDONUAPLUS, CBC #### [facility] [address] [place] [address] [place] #### C3, CH50, C4 #### [facility] , Epithelial cells.squamous [# /area] in Urine sediment by Automated countOrdered By: Nuvia Sanchez on 09-10-2024 Epithelial cells.squamous Auto (Urine sed) [#/Area] Epithelial cells.squamous [#/area] in Urine sediment by Automated count 0-2 [facility] Erythrocytes [#/area] in Uri ne sediment by Automated countOrdered By: Nuvia Sanchez on 09-10-2024 RBC Auto (Urine sed) [#/Area] Erythrocytes [#/area] in Urine sediment by Automated count 0-4 [facility] Glucose [Mass/volume] in Uri ne by Test stripOrdered By: Nuvia Sanchez on 09-10-2024 Glucose Test strip (U) [Mass/Vol] Glucose [Mass/volume] in Urine by Test strip Normal [facility] Hemoglobin Test strip Ql (U) Ordered By: Nuvia Sanchez on 09-10-2024 Hemoglobin Ql (U) Hemoglobin [Presence ] in Urine by Test strip Negative [facility] Hyaline casts [#/area] in Ur ine sediment by Automated countOrdered By: Nuvia Sanchez on 09-10-2024 Hyaline casts Auto (Urine sed) [#/Area] Hyaline casts [#/area] in Urine sediment by Automated count 0-8 [facility] Ketones Test strip Ql (U)Ord ered By: Nuvia Sanchez on 09-10-2024 Ketones Ql (U) Ketones [Presence] i n Urine by Test strip Negative [facility] Leukocyte esterase [Presence ] in Urine by Test stripOrdered By: Nuvia Sanchez on 09-10-2024 Leukocyte esterase Test strip Ql (U) Leukocyte esterase [Presence] in Urine by Test strip Negative [facility] Leukocytes [#/area] in Urine sediment by Automated countOrdered By: Nuvia Sanchez on 09-10-2024 WBC Auto (Urine sed) [#/Area] Leukocytes [#/area] in Urine sediment by Automated count 0-4 [facility] Mucus [Presence] in Urine by AutomatedOrdered By: Nuvia Sanchez on 09-10-2024 Mucus Auto Ql (U) Mucus [Presence] in Urine by Automated [facility] Nitrite Test strip Ql (U)Ord ered By: Nuvia Sanchez on 09-10-2024 Nitrite Ql (U) Nitrite [Presence] i n Urine by Test strip Negative [facility] Protein Test strip (U) [Mass /Vol]Ordered By: Nuvia Sanchez on 09-10-2024 Protein (U) [Mass/Vol] Protein [Mass/volume] in Urine by Test strip Negative [facility] Specific gravity Test strip (U) [Rel density]Ordered By: Nuvia Sanchez on 09-10-2024 Specific gravity (U) [Rel density] Specific gravity of Urine by Test strip 1.001-1.03 0 [facility] Urate crystals [Presence] in Urine sediment by Computer assisted methodOrdered By: Nuvia Sanchez on 09-10-2024 Urate crystals [Presence] in Urine sediment by Computer assisted method Urate crystals [Presence] in Urine sediment by Computer assisted method [facility] Urobilinogen Test strip (U) [Mass/Vol]Ordered By: Nuvia Sanchez on 09-10-2024 Urobilinogen (U) [Mass/Vol] Urobilinogen [Mass/volume] in Urine by Test strip Normal [facility] pH Test strip (U)Ordered By: Nuvia Sanchez on 09-10-2024 pH (U) pH of Urine by Test strip 5.0-9.0 [facility] XR CHEST (2 VW)on 08-30-2024 XR CHEST (2 VW) EXAM: XR CHEST (2 VW ) HISTORY: Essential hypertension COMPARISON: 08/20/2023 TECHNIQUE: 2 views FINDINGS: The heart and mediastinum are unremarkable. Lungs are clear. No focal infiltrates are seen. No effusions are noted. IMPRESSION: No acute cardiopulmonary pathology. Interpreted by: Ora Macias MD Signed by: Ora Macias MD 08/30/24 Final result Normal [facility] Cult,Urineon 08-29-2024 Cult,Urine Specimen Description .CLEAN [...] Tobramycin <=1 SUSCEPTIBLE Trimethoprim/Sulfa <=20 SUSCEPTIBLE Susceptible [facility] Comment on above: Performed By: #### F ROYAL #### [facility] [address] [place] [address] Client Representative: Christian Muir MD CBC with Auto Differentialon 08-28-2024 Basophils (Bld) [#/Vol] 0.01 10*3/uL [facility] Basophils/100 WBC (Bld) 0 % 0 - 2 % [facility] Eosinophils (Bld) [#/Vol] 0.09 10*3/uL [facility] Eosinophils/100 WBC (Bld) 2 % 0 - 5 % [facility] Erythrocyte distribution width (RBC) [Ratio] 13.8 % 12.1 - 15.2 % [facility] Hematocrit (Bld) [Volume fraction] 37.7 % 36.0 - 46.0 % [facility] Hemoglobin (Bld) [Mass/Vol] 12.4 g/dL 12.0 - 16.0 g/dL [facility] Immature granulocytes (Bld) [#/Vol] 0.06 10*3/uL [facility] Immature granulocytes/100 WBC (Bld) 1 % 0 - 5 % [facility] Interpretation and review of laboratory results Abnormal [facility] Lymphocytes/100 WBC (Bld) 28 % 15 - 40 % [facility] Lymphocytes/100 WBC (Bld) 1.39 % [facility] MCH (RBC) [Entitic mass] 31.2 pg 26.0 - 34.0 pg [facility] MCHC (RBC) [Mass/Vol] 32.9 g/dL 31.0 - 37.0 g/dL [facility] MCV (RBC) [Entitic vol] 95.0 fL 80.0 - 100.0 fL [facility] Monocytes/100 WBC (Bld) 10 % High 4 - 8 % [facility] Monocytes/100 WBC (Bld) 0.49 % [facility] Neutrophils/100 WBC (Bld) 59 % 47 - 75 % [facility] Platelet mean volume (Bld) [Entitic vol] 9.5 fL 6.0 - 12.0 fL [facility] Platelets (Bld) [#/Vol] 213 10*3/uL [facility] RBC (Bld) [#/Vol] 3.97 10*6/uL Low 4.00 - 5.20 m/uL [facility] Segmented neutrophils/100 WBC (Bld) 2.99 % [facility] WBC other (Bld) [#/Vol] 5.0 [facility] CBC with Diffon 08-28-2024 Abs. Basophil 0.01 k/uL Normal 0.00-0.20 [facility] Comment on above: Performed By: #### C OVRB #### [facility] [address] [place] [address] Client Representative: Christian Muir MD Abs.Imm.Granulocyte 0.06 k/uL Normal 0.00-0.30 [facility] Comment on above: Performed By: #### C OVRB #### [facility] [address] [place] [phone] Client Representative: Christian Muir MD Abs.Neutrophil (Seg) 2.99 k/uL Normal 2.5-7.0 [facility] Comment on above: Performed By: #### C OVRB #### [facility] [address] [place] [phone] Client Representative: Christian Muir MD Basophils/100 WBC (Bld) 0 % Normal 0-2 [facility] Comment on above: Performed By: #### C OVRB #### [facility] [address] [place] [address] Client Representative: Christian Muir MD Eosinophils (Bld) [#/Vol] 0.09 10*3/uL Normal 0.00-0.40 [facility] Comment on above: Performed By: #### C OVRB #### [facility] [address] [place] [phone] Client Representative: Christian Muir MD Eosinophils/100 WBC (Bld) 2 % Normal 0-5 [facility] Comment on above: Performed By: #### C OVRB #### [facility] [address] [place] [address] Client Representative: Christian Muir MD Erythrocyte distribution width (RBC) [Ratio] 13.8 % Normal 12.1-15.2 [facility] Comment on above: Performed By: #### C OVRB #### [facility] [address] [place] [phone] Client Representative: Christian Muir MD Hematocrit (Bld) [Volume fraction] 37.7 % Normal 36.0-46.0 [facility] Comment on above: Performed By: #### C OVRB #### [facility] [address] [place], [place] [phone] Client Representative: Christian Muir MD Hemoglobin (Bld) [Mass/Vol] 12.4 g/dL Normal 12.0-16.0 [facility] Comment on above: Performed By: #### C OVRB #### [facility] [address] [place], [place] [phone] Client Representative: Christian Muir MD Immature granulocytes/100 WBC (Bld) 1 % Normal 0-5 [facility] Comment on above: Performed By: #### C OVRB #### [facility] [address] [place] [address] Client Representative: Christian Muir MD Lymphocytes (Bld) [#/Vol] 1.39 10*3/uL Normal 1.00-4.80 [facility] Comment on above: Performed By: #### C OVRB #### [facility] [address] [place] [address] Client Representative: Christian Muir MD Lymphocytes/100 WBC (Bld) 28 % Normal 15-40 [facility] Comment on above: Performed By: #### C OVRB #### [facility] [address] [place] [address] Client Representative: Christian Muir MD MCH (RBC) [Entitic mass] 31.2 pg Normal 26.0-34.0 [facility] Comment on above: Performed By: #### C OVRB #### [facility] [address] [place], [place] [phone] Client Representative: Christian Muir MD MCHC (RBC) [Mass/Vol] 32.9 g/dL Normal 31.0-37.0 [facility] Comment on above: Performed By: #### C OVRB #### [facility] [address] [place] [address] Client Representative: Christian Muir MD MCV (RBC) [Entitic vol] 95.0 fL Normal 80.0-100.0 [facility] Comment on above: Performed By: #### C OVRB #### [facility] [address] [place] [address] [phone] Client Representative: Christian Muir MD Monocytes (Bld) [#/Vol] 0.49 10*3/uL Normal 0.00-1.00 [facility] Comment on above: Performed By: #### C OVRB #### [facility] [address] [place] [address] [phone] Client Representative: Christian Muir MD Monocytes/100 WBC (Bld) 10 % High 4-8 [facility] Comment on above: Performed By: #### C OVRB #### [facility] [address] [place] [address] [phone] Client Representative: Christian Muir MD Neutrophil (Seg) 59 % Normal 47-75 [facility] Comment on above: Performed By: #### C OVRB #### [facility] [address] [place] [address] [phone] Client Representative: Christian Muir MD Platelet mean volume (Bld) [Entitic vol] 9.5 fL Normal 6.0-12.0 [facility] Comment on above: Performed By: #### C OVRB #### [facility] [address] [place] [address] [phone] Client Representative: Christian Muir MD Platelets (Bld) [#/Vol] 213 10*3/uL Normal 140-450 [facility] Comment on above: Performed By: #### C OVRB #### [facility] [address] [place] [address] [phone] Client Representative: Christian Muir MD RBC (Bld) [#/Vol] 3.97 10*6/uL Low 4.00-5.20 [facility] Comment on above: Performed By: #### C OVRB #### [facility] [address] [place], [place] [phone] Client Representative: Christian Muir MD WBC (Bld) [#/Vol] 5.0 10*3/uL Normal 3.5-11.0 [facility] Comment on above: Performed By: #### C OVRB #### [facility] [address] [place], [place] [phone] Client Representative: Christian Muir MD Comp Metabolic Profon 2024 Albumin [Mass/Vol] 4.0 g/dL Normal 3.5-5.2 [facility] Comment on above: Performed By: #### C OVRB #### [facility] [address] [place], [place] [phone] Client Representative: Christian Muir MD Albumin/Glob Ratio 1.6 Normal 1.0-2.5 [facility] Comment on above: Performed By: #### C OVRB #### [facility] [address] [place], [place] [phone] Client Representative: Christian Muir MD Alkaline Phos 58 U/L Normal 35-104 [facility] Comment on above: Performed By: #### C OVRB #### [facility] [address] [place], [place] [phone] Client Representative: Christian Muir MD ALT [Catalytic activity/Vol] 11 U/L Normal 5-33 [facility] Comment on above: Performed By: #### C OVRB #### [facility] [address] [place], [place] [phone] Client Representative: Christian Muir MD Anion gap [Moles/Vol] 11 mmol/L Normal 9-17 [facility] Comment on above: Performed By: #### C OVRB #### [facility] [address] [place], [place] [phone] Client Representative: Christian uMir MD AST [Catalytic activity/Vol] 17 U/L Normal <32 [facility] Comment on above: Performed By: #### C OVRB #### [facility] [address] [place], [place] [phone] Client Representative: Christian Muir MD Bilirubin [Mass/Vol] 0.5 mg/dL Normal 0.3-1.2 [facility] Comment on above: Performed By: #### C OVRB #### [facility] [address] [place] [address] Client Representative: Christian Muir MD Calcium [Mass/Vol] 9.4 mg/dL Normal 8.6-10.4 [facility] Comment on above: Performed By: #### C OVRB #### [facility] [address] [place] [address] Client Representative: Christian Muir MD Chloride [Moles/Vol] 105 mmol/L Normal 98-107 [facility] Comment on above: Performed By: #### C OVRB #### [facility] [address] [place] [address] Client Representative: Christian Muir MD CO2 [Moles/Vol] 26 mmol/L Normal 20-31 [facility] Comment on above: Performed By: #### C OVRB #### [facility] [address] [place], [place] [phone] Client Representative: Christian Muir MD Creatinine [Mass/Vol] 1.3 mg/dL High 0.5-0.9 [facility] Comment on above: Performed By: #### C OVRB #### [facility] [address] [place] [address] Client Representative: Christian Muir MD GFR/1.73 sq M.predicted among non-blacks MDRD (S/P/Bld) [Vol rate/Area] 42 mL/min/{1.73_m2} Low >60 [facility] Comment on above: Result Comment: These [...] secretion. Performed By: #### C OVRB #### [facility] [address] [place] [address] Client Representative: Christian Muir MD Glucose [Mass/Vol] 96 mg/dL Normal 70-99 [facility] Comment on above: Performed By: #### C OVRB #### [facility] [address] [place] [address] Client Representative: Chrsitian Muir MD Potassium [Moles/Vol] 4.2 mmol/L Normal 3.7-5.3 [facility] Comment on above: Performed By: #### C OVRB #### [facility] [address] [place] [address] Client Representative: Christian Muir MD Protein [Mass/Vol] 6.5 g/dL Normal 6.4-8.3 [facility] Comment on above: Performed By: #### C OVRB #### [facility] [address] [place] [address] Client Representative: Christian Muir MD Sodium [Moles/Vol] 142 mmol/L Normal 135-144 [facility] Comment on above: Performed By: #### C OVRB #### [facility] [address] [place], [place] [phone] Client Representative: Christian Muir MD Urea nitrogen [Mass/Vol] 28 mg/dL High 8-23 [facility] Comment on above: Performed By: #### C OVRB #### [facility] [address] [place] [address] Client Representative: Christian Muir MD Comprehensive Metabolic Pane [facility] 08-28-2024 Albumin [Mass/Vol] 4.0 g/dL 3.5 - 5.2 g/dL [facility] Albumin/Globulin [Mass ratio] 1.6 {ratio} 1.0 - 2.5 [facility] ALP [Catalytic activity/Vol] 58 U/L 35 - 104 U/L [facility] ALT [Catalytic activity/Vol] 11 U/L 5 - 33 U/L [facility] Anion gap [Moles/Vol] 11 mmol/L 9 - 17 mmol/L [facility] AST [Catalytic activity/Vol] 17 U/L NINF - 32 U/L [facility] Bilirubin [Mass/Vol] 0.5 mg/dL 0.3 - 1 .2 mg/dL [facility] Calcium [Mass/Vol] 9.4 mg/dL 8.6 - 10. 4 mg/dL [facility] Chloride [Moles/Vol] 105 mmol/L 98 - 10 7 mmol/L [facility] CO2 [Moles/Vol] 26 mmol/L 20 - 31 mmol/L [facility] Creatinine [Mass/Vol] 1.3 mg/dL High 0.5 - 0.9 mg/dL [facility] Est, Glom Filt Rate 42 Low - PINF [facility] Comment on above: These results are not [...] [Mass/Vol] 96 mg/dL 70 - 99 mg/dL [facility] Interpretation and review of laboratory results Abnormal [facility] Potassium [Moles/Vol] 4.2 mmol/L 3.7 - 5.3 mmol/L [facility] Protein [Mass/Vol] 6.5 g/dL 6.4 - 8.3 g/dL [facility] Sodium [Moles/Vol] 142 mmol/L 135 - 144 mmol/L [facility] Urea nitrogen [Mass/Vol] 28 mg/dL High 8 - 23 mg/dL [facility] Lipid Panelon 08-28-2024 Cholesterol [Mass/Vol] 145 mg/dL 0 - 199 mg/dL [facility] Comment on above: Cholesterol Guidelines: <200 Desirable 200-240 Borderline >240 Undesirable Cholesterol in HDL [Mass/Vol] 52 mg/dL 40 - PINF mg/dL [facility] Comment on above: HDL Guidelines: <40 Undesirable 40-59 Borderline >59 Desirable Cholesterol in LDL [Mass/Vol] 74 mg/dL 0 - 100 mg/dL [facility] Comment on above: LDL Guidelines: <100 Desirable 100-129 Near to/above Desirable 130-159 Borderline >159 Undesirable Direct (measured) LDL and calculated LDL are not interchangeable tests. Cholesterol in VLDL [Mass/Vol] 19 mg/dL 1 - 30 mg/dL [facility] Cholesterol.total/Cho lesterol in HDL [Mass ratio] 2.8 {ratio} [facility] Triglyceride [Mass/Vol] 94 mg/dL NINF - 150 mg/dL [facility] Comment on above: Triglyceride Guidelines: <150 Desirable 150-199 Borderline 200-499 High >499 Very high Based on AHA Guidelines for fasting triglyceride, March 2012. Lipid Profileon 08-28-2024 Cholesterol [Mass/Vol] 145 mg/dL Normal 0-199 [facility] Comment on above: Result Comment: Cholesterol Guidelines: <200 Desirable 200-240 Borderline >240 Undesirable Performed By: #### C OVRB #### [facility] [address] [place] [address] Client Representative: Christian Muir MD Cholesterol in HDL [Mass/Vol] 52 mg/dL Normal >40 [facility] Comment on above: Result Comment: HDL Guidelines: <40 Undesirable 40-59 Borderline >59 Desirable Performed By: #### C OVRB #### [facility] [address] [place] [address] Client Representative: Christian Muir MD Cholesterol in LDL [Mass/Vol] 74 mg/dL Normal 0-100 [facility] Comment on above: Result Comment: LDL Guidelines: <100 Desirable 100-129 Near to/above Desirable 130-159 Borderline >159 Undesirable Direct (measured) LDL and calculated LDL are not interchangeable tests. Performed By: #### C OVRB #### [facility] [address] [place], [place] [phone] Client Representative: Christian Muir MD Cholesterol in VLDL [Mass/Vol] 19 mg/dL Normal 1-30 [facility] Comment on above: Performed By: #### C OVRB #### [facility] [address] [place] [address] Client Representative: Christian Muir MD Cholesterol.total/Cho lesterol in HDL [Mass ratio] 2.8 {ratio} Normal [facility] Comment on above: Performed By: #### C OVRB #### [facility] [address] [place], [place] [phone] Client Representative: Christian Muir MD Triglyceride [Mass/Vol] 94 mg/dL Normal <150 [facility] Comment on above: Result Comment: Triglyceride Guidelines: <150 Desirable 150-199 Borderline 200-499 High >499 Very high Based on AHA Guidelines for fasting triglyceride, March 2012. Performed By: #### C OVRB #### [facility] [address] [place] [address] Client Representative: Christian Muir MD Magnesiumon 08-28-2024 Magnesium [Mass/Vol] 2.2 mg/dL 1.6 - 2 .6 mg/dL [facility] Magnesium [Mass/Vol] 2.2 mg/dL Normal 1.6-2.6 [facility] Comment on above: Performed By: #### C OVRB #### [facility] [address] [place], [place] [phone] Client Representative: Christian Muir MD No Panel Informationon 08-28 [facility] TSH w/reflex to FT4on 2024 Thyroid Stim. Horm. 2.59 uIU/mL Normal 0.27-4.20 [facility] Comment on above: Performed By: #### C OVRB #### [facility] [address] [place] [address] Client Representative: Christian Muir MD TSH with Reflexon 08-28-2024 TSH Qn 2.59 m[IU]/L [facility] Vitamin D 25 Hydroxyon 08-28 25-hydroxyvitamin D3 [Mass/Vol] 89.9 ng/mL 30.0 - 100.0 ng/mL [facility] Comment on above: Reference Range: Vitamin D status Range Deficiency <20 ng/mL Mild Deficiency 20-30 ng/mL Sufficiency 30-100 ng/mL Toxicity >100 ng/mL Vitamin D 25 OHon 08-28-2024 Vitamin D 25 OH 89.9 ng/mL Normal 30.0-100.0 [facility] Comment on above: Result Comment: Reference Range: Vitamin D status Range Deficiency <20 ng/mL Mild Deficiency 20-30 ng/mL Sufficiency 30-100 ng/mL Toxicity >100 ng/mL Performed By: #### C OVRB #### [facility] [address] [place] [address] Client Representative: Christian Muir MD Alanine aminotransferase [En zymatic activity/volume] in Serum or PlasmaOrdered By: Obie Hylton on 08-11-2024 ALT [Catalytic activity/Vol] Alanine aminotransferase [Enzymatic activity/volume] in Serum or Plasma [facility] Albumin [Mass/volume] in Ser um or Plasma by Bromocresol green (BCG) dye binding methoOrdered By: Obie Hylton on 08-11-2024 Albumin BCG dye [Mass/Vol] Albumin [Mass/volume] in Serum or Plasma by Bromocresol green (BCG) dye binding metho 3.5-5.7 [facility] Alkaline phosphatase [Enzyma tic activity/volume] in Serum or PlasmaOrdered By: Obie Hylton on 08-11-2024 ALP [Catalytic activity/Vol] Alkaline phosphatase [Enzymatic activity/volume] in Serum or Plasma 34-104 [facility] Appearance of UrineOrdered B y: Obie Hylton on 08-11-2024 Appearance (U) Urine appearance Clear [facility] Aspartate aminotransferase [ Enzymatic activity/volume] in Serum or PlasmaOrdered By: Obie Hylton on 08-11-2024 AST [Catalytic activity/Vol] Aspartate aminotransferase [Enzymatic activity/volume] in Serum or Plasma 13-39 [facility] Bacteria [Presence] in Urine by AutomatedOrdered By: Obie Hylton on 08-11-2024 Bacteria Auto Ql (U) Bacteria [Presence] in Urine by Automated None Seen [facility] Basophils Auto (Bld) [#/Vol] Ordered By: Obie Hylton on 08-11-2024 Basophils (Bld) [#/Vol] Automated basophil count 0.0-0.2 [facility] Basophils/100 WBC Auto (Bld) Ordered By: Obie Hylton on 08-11-2024 Basophils/100 WBC (Bld) Automated basophil % . [facility] Bilirubin Test strip Ql (U)O rdered By: Obie Hylton on 08-11-2024 Bilirubin Ql (U) Bilirubin.total [Pre sence] in Urine by Test strip Negative [facility] Bilirubin.total [Mass/volume ] in Serum or PlasmaOrdered By: Obie Hylton on 08-11-2024 Bilirubin [Mass/Vol] Bilirubin.total [Mass/volume] in Serum or Plasma 0.3-1.0 [facility] Calcium [Mass/volume] in Ser um or PlasmaOrdered By: Obie Hylton on 08-11-2024 Calcium [Mass/Vol] Calcium [Mass/volume ] in Serum or Plasma 8.6-10.3 [facility] Carbon dioxide, total [Moles /volume] in Serum or PlasmaOrdered By: Obie Hylton on 08-11-2024 CO2 [Moles/Vol] Carbon dioxide, tota l [Moles/volume] in Serum or Plasma 21.0-31.0 [facility] Chloride [Moles/volume] in S liat or PlasmaOrdered By: Obie Hylton on 08-11-2024 Chloride [Moles/Vol] Chloride [Moles/vol ume] in Serum or Plasma 98-107 [facility] Color Auto (U)Ordered By: Cindy gonzalezjesus Warner on 08-11-2024 Color (U) Color of Urine by Auto Yellow Fi [facility] Complement C3on 08-11-2024 Complement C3 130 mg/dL Normal 82-167 [facility] Comment on above: Order Comment: MAHSA LARRY Name Collection Type:: Clean-Voided Midstream Performed By: #### E SR, CMP, ADDONUAPLUS, CBC #### [address] #### C3, CH50, C4 #### [facility] , Complement C4on 08-11-2024 Complement C4 23 mg/dL Normal 12-38 [facility] Comment on above: Order Comment: MAHSA LARRY Name Collection Type:: Clean-Voided Midstream Result Comment: Perf ormed at: CB - [facility] [place] [id number] Client Representative: Usman Draper PhD, Phone: [phone] PERFORMED BY: [place] [address] PATHOLOGIST CREDIT RISK MANAGER DOMINICK MONTIEL M.D. Performed By: #### E SR, CMP, ADDONUAPLUS, CBC #### [address] #### C3, CH50, C4 #### [facility] , Complement Total (CH50)on Complement Total (CH50) 54 Normal >41 [facility] Comment on above: Order [...] of range values. Performed at: - [facility] [id number] Client Representative: Usman Draper PhD, Phone: [phone] PERFORMED BY: [place] [address] PATHOLOGIST CREDIT RISK MANAGER DOMINICK MONTIEL M.D. Performed By: #### E SR, CMP, ADDONUAPLUS, CBC #### [address] #### C3, CH50, C4 #### [facility] , Complete Blood Count Auto Di ffon 08-11-2024 Basophils (Bld) [#/Vol] 0.0 10*3/uL Normal 0.0-0.2 [facility] Comment on above: Performed By: #### E SR, ADDONUAPLUS, CBC, CMP #### [place] [address] [place] #### C3, C4, CH50 #### [facility] , Basophils/100 WBC (Bld) 0.3 % Normal . [facility] Comment on above: Performed By: #### E SR, ADDONUAPLUS, CBC, CMP #### [place] [address] [place] #### C3, C4, CH50 #### [facility] , Eosinophils (Bld) [#/Vol] 0.1 10*3/uL Normal 0.0-0.45 [facility] Comment on above: Performed By: #### E SR, ADDONUAPLUS, CBC, CMP #### [place] [address] [place] #### C3, C4, CH50 #### [facility] , Eosinophils/100 WBC (Bld) 1.9 % Normal . [facility] Comment on above: Performed By: #### E SR, ADDONUAPLUS, CBC, CMP #### [place] [address] [place] #### C3, C4, CH50 #### [facility] , Erythrocyte distribution width (RBC) [Ratio] 14.6 % Normal 11.9-15.3 [facility] Comment on above: Performed By: #### E SR, ADDONUAPLUS, CBC, CMP #### [place] [address] [place] #### C3, C4, CH50 #### [facility] , Hematocrit (Bld) [Volume fraction] 36.0 % Normal 34.0-46.4 [facility] Comment on above: Performed By: #### E SR, ADDONUAPLUS, CBC, CMP #### [address] #### C3, C4, CH50 #### [facility] , Hemoglobin (Bld) [Mass/Vol] 12.3 g/dL Normal 11.8-15.4 [facility] Comment on above: Performed By: #### E SR, ADDONUAPLUS, CBC, CMP #### [place] [address] [place] #### C3, C4, CH50 #### [facility] , Lymphocytes (Bld) [#/Vol] 1.2 10*3/uL Normal 1.00-4.8 [facility] Comment on above: Performed By: #### E SR, ADDONUAPLUS, CBC, CMP #### [place] [address] [place] #### C3, C4, CH50 #### [facility] , Lymphocytes/100 WBC (Bld) 24.1 % Normal . [facility] Comment on above: Performed By: #### E SR, ADDONUAPLUS, CBC, CMP #### [place] [address] [place] #### C3, C4, CH50 #### [facility] , MCH (RBC) [Entitic mass] 31.9 pg Normal 24.7-34.3 [facility] Comment on above: Performed By: #### E SR, ADDONUAPLUS, CBC, CMP #### [address] #### C3, C4, CH50 #### [facility] , MCV (RBC) [Entitic vol] 93.7 fL Normal 80-100 [facility] Comment on above: Performed By: #### E SR, ADDONUAPLUS, CBC, CMP #### [address] #### C3, C4, CH50 #### [facility] , Mean Corpuscular HGB Conc 34.0 g/dL Normal 32.0-35.0 [facility] Comment on above: Performed By: #### E SR, ADDONUAPLUS, CBC, CMP #### [address] #### C3, C4, CH50 #### [facility] , Monocytes (Bld) [#/Vol] 0.4 10*3/uL Normal 0.0-0.8 [facility] Comment on above: Performed By: #### E SR, ADDONUAPLUS, CBC, CMP #### [place] [address] [place] #### C3, C4, CH50 #### [facility] , Monocytes/100 WBC (Bld) 7.7 % Normal . [facility] Comment on above: Performed By: #### E SR, ADDONUAPLUS, CBC, CMP #### [place] [address] [place] #### C3, C4, CH50 #### [facility] , Neutrophils (Bld) [#/Vol] 3.4 10*3/uL Normal 1.8-7.7 [facility] Comment on above: Performed By: #### E SR, ADDONUAPLUS, CBC, CMP #### [address] #### C3, C4, CH50 #### [facility] , Neutrophils/100 WBC (Bld) 66.0 % Normal . [facility] Comment on above: Performed By: #### E SR, ADDONUAPLUS, CBC, CMP #### [address] #### C3, C4, CH50 #### [facility] , NRBC% 0.1 /100{WBC} Normal 0-0.5 [facility] Comment on above: Performed By: #### E SR, ADDONUAPLUS, CBC, CMP #### [place] [address] [place] #### C3, C4, CH50 #### [facility] , Platelet mean volume (Bld) [Entitic vol] 8.4 fL Normal 6.3-10.7 [facility] Comment on above: Performed By: #### E SR, ADDONUAPLUS, CBC, CMP #### [address] #### C3, C4, CH50 #### [facility] , Platelets (Bld) [#/Vol] 228 10*3/uL Normal 150-450 [facility] Comment on above: Performed By: #### E SR, ADDONUAPLUS, CBC, CMP #### [place] [address] [place] #### C3, C4, CH50 #### [facility] , RBC (Bld) [#/Vol] 3.85 10*6/uL Normal 3.60-5.[address] [facility] Comment on above: Performed By: #### E SR, ADDONUAPLUS, CBC, CMP #### [address] #### C3, C4, CH50 #### [facility] , WBC (Bld) [#/Vol] 5.1 10*3/uL Normal 3.8-11.6 [facility] Comment on above: Performed By: #### E SR, ADDONUAPLUS, CBC, CMP #### [address] #### C3, C4, CH50 #### [facility] , Comprehensive Metabolic Pane trevor 08-11-2024 Albumin [Mass/Vol] 4.0 g/dL Normal 3.5-5.7 [facility] Comment on above: Performed By: #### E SR, ADDONUAPLUS, CBC, CMP #### [address] #### C3, C4, CH50 #### [facility] , Albumin/Globulin [Mass ratio] 1.7 {ratio} Normal [facility] Comment on above: Performed By: #### E SR, ADDONUAPLUS, CBC, CMP #### [address] #### C3, C4, CH50 #### [facility] , ALP [Catalytic activity/Vol] 54 U/L Normal 34-104 [facility] Comment on above: Result Comment: PERF ORMED BY: [place] [address] PATHOLOGIST CREDIT RISK MANAGER DOMINICK MONTIEL M.D. Performed By: #### E SR, ADDONUAPLUS, CBC, CMP #### [place] [address] [place] #### C3, C4, CH50 #### [facility] , ALT [Catalytic activity/Vol] 11 U/L Normal 7-52 [facility] Comment on above: Performed By: #### E SR, ADDONUAPLUS, CBC, CMP #### [facility] [address] [place] [address] [place] #### C3, C4, CH50 #### [facility] , Anion gap [Moles/Vol] 10.1 mmol/L Normal 6.0-15.[address] [facility] Comment on above: Performed By: #### E SR, ADDONUAPLUS, CBC, CMP #### [facility] [address] [place] [address] [place] #### C3, C4, CH50 #### [facility] , AST [Catalytic activity/Vol] 16 U/L Normal 13-39 [facility] Comment on above: Performed By: #### E SR, ADDONUAPLUS, CBC, CMP #### [address] #### C3, C4, CH50 #### [facility] , Bilirubin [Mass/Vol] 0.5 mg/dL Normal 0.3-1.0 [facility] Comment on above: Performed By: #### E SR, ADDONUAPLUS, CBC, CMP #### [facility] [address] [place] [address] [place] #### C3, C4, CH50 #### [facility] , Calcium [Mass/Vol] 9.3 mg/dL Normal 8.6-10.3 [facility] Comment on above: Performed By: #### E SR, ADDONUAPLUS, CBC, CMP #### [place] [address] [place] #### C3, C4, CH50 #### [facility] , Chloride [Moles/Vol] 107 mmol/L Normal 98-107 [facility] Comment on above: Performed By: #### E SR, ADDONUAPLUS, CBC, CMP #### [facility] [address] [place] [address] [place] #### C3, C4, CH50 #### [facility] , CO2 [Moles/Vol] 27.1 mmol/L Normal 21.0-31.0 [facility] Comment on above: Performed By: #### E SR, ADDONUAPLUS, CBC, CMP #### [address] #### C3, C4, CH50 #### [facility] , Creatinine [Mass/Vol] 1.30 mg/dL High 0.60-1.20 [facility] Comment on above: Performed By: #### E SR, ADDONUAPLUS, CBC, CMP #### [place] [address] [place] #### C3, C4, CH50 #### [facility] , Estimated GFR 41.829 mL/Min Normal [facility] Comment on above: Performed By: #### E SR, ADDONUAPLUS, CBC, CMP #### [address] #### C3, C4, CH50 #### [facility] , Globulin (S) [Mass/Vol] 2.3 g/dL Normal [facility] Comment on above: Performed By: #### E SR, ADDONUAPLUS, CBC, CMP #### [address] #### C3, C4, CH50 #### [facility] , Glucose [Mass/Vol] 94 mg/dL Normal 70-100 [facility] Comment on above: Result Comment: [place] Glucose Reference Range is dependent on time and content of last meal. Glucose of more than 200 mg/dL in a nonstressed, ambulatory subject supports the diagnosis of Diabetes Mellitus. ADA recommended reference range Performed By: #### E SR, ADDONUAPLUS, CBC, CMP #### [place] [address] [place] #### C3, C4, CH50 #### [facility] , Potassium [Moles/Vol] 4.2 mmol/L Normal 3.5-5.1 [facility] Comment on above: Performed By: #### E SR, ADDONUAPLUS, CBC, CMP #### [place] [address] [place] #### C3, C4, CH50 #### [facility] , Protein [Mass/Vol] 6.3 g/dL Low 6.4-8.9 [facility] Comment on above: Performed By: #### E SR, ADDONUAPLUS, CBC, CMP #### [place] [address] [place] #### C3, C4, CH50 #### [facility] , Sodium [Moles/Vol] 140 mmol/L Normal 136-145 [facility] Comment on above: Performed By: #### E SR, ADDONUAPLUS, CBC, CMP #### [address] #### C3, C4, CH50 #### [facility] , Urea nitrogen [Mass/Vol] 30 mg/dL High 7-25 [facility] Comment on above: Performed By: #### E SR, ADDONUAPLUS, CBC, CMP #### [place] [address] [place] #### C3, C4, CH50 #### [facility] , Creatinine [Mass/volume] in Serum or PlasmaOrdered By: Obie Hylton on 08-11-2024 Creatinine [Mass/Vol] Creatinine [Mass/v olume] in Serum or Plasma High 0.60-1.20 [facility] Dipstick and Microscopicon 0 08-11-2024 Appearance (U) Clear Normal Clear [facility] Comment on above: Order Comment: MAHSA CHIANGJKW Name Collection Type:: Clean-Voided Midstream Performed By: #### E SR, CMP, ADDONUAPLUS, CBC #### [place] [address] [place] #### C3, CH50, C4 #### [facility] , Bacteria,Urine Rare Normal None Seen [facility] Comment on above: Order Comment: FASTI NG.JKW Name Collection Type:: Clean-Voided Midstream Performed By: #### E SR, CMP, ADDONUAPLUS, CBC #### [address] #### C3, CH50, C4 #### [facility] , Bilirubin,Urine Negative Normal Negative [facility] Comment on above: Order Comment: FASTI NG.JKW Name Collection Type:: Clean-Voided Midstream Performed By: #### E SR, CMP, ADDONUAPLUS, CBC #### [address] #### C3, CH50, C4 #### [facility] , Color (U) Yellow Normal Yellow [facility] Comment on above: Order Comment: FASTI NG.JKW Name Collection Type:: Clean-Voided Midstream Performed By: #### E SR, CMP, ADDONUAPLUS, CBC #### [address] #### C3, CH50, C4 #### [facility] , Glucose Ql (U) Normal Normal Normal [facility] Comment on above: Order Comment: FASTI NG.JKW Name Collection Type:: Clean-Voided Midstream Performed By: #### E SR, CMP, ADDONUAPLUS, CBC #### [place] [address] [place] #### C3, CH50, C4 #### [facility] , Hyaline Casts,Urine 0-8 Normal 0-8 [facility] Comment on above: Order Comment: FASTI NG.JKW Name Collection Type:: Clean-Voided Midstream Performed By: #### E SR, CMP, ADDONUAPLUS, CBC #### [address] #### C3, CH50, C4 #### [facility] , Ketones Ql (U) Negative Normal Negative [facility] Comment on above: Order Comment: FASTI NG.JKW Name Collection Type:: Clean-Voided Midstream Performed By: #### E SR, CMP, ADDONUAPLUS, CBC #### [address] #### C3, CH50, C4 #### [facility] , Leukocyte esterase Test strip Ql (U) Negative Normal Negative [facility] Comment on above: Order Comment: FASTI NG.JKW Name Collection Type:: Clean-Voided Midstream Performed By: #### E SR, CMP, ADDONUAPLUS, CBC #### [address] #### C3, CH50, C4 #### [facility] , Mucus,Urine Rare Normal [facility] Comment on above: Order Comment: FASTI NG.JKW Name Collection Type:: Clean-Voided Midstream Result Comment: PERF ORMED BY: [place] [address] PATHOLOGIST CREDIT RISK MANAGER DOMINICK MONTIEL M.D. Performed By: #### E SR, CMP, ADDONUAPLUS, CBC #### [address] #### C3, CH50, C4 #### [facility] , Nitrite,Urine Negative Normal Negative [facility] Comment on above: Order Comment: FASTI NG.JKW Name Collection Type:: Clean-Voided Midstream Performed By: #### E SR, CMP, ADDONUAPLUS, CBC #### [address] #### C3, CH50, C4 #### [facility] , Occult Blood,Urine Negative Normal Negative [facility] Comment on above: Order Comment: FASTI NG.JKW Name Collection Type:: Clean-Voided Midstream Performed By: #### E SR, CMP, ADDONUAPLUS, CBC #### [address] #### C3, CH50, C4 #### [facility] , pH (U) 6.0 [pH] Normal 5.0-9.0 [facility] Comment on above: Order Comment: FASTI NG.JKW Name Collection Type:: Clean-Voided Midstream Performed By: #### E SR, CMP, ADDONUAPLUS, CBC #### [address] #### C3, CH50, C4 #### [facility] , Protein,Urine Negative Normal Negative [facility] Comment on above: Order Comment: FASTI NG.JKW Name Collection Type:: Clean-Voided Midstream Performed By: #### E SR, CMP, ADDONUAPLUS, CBC #### [place] [address] [place] #### C3, CH50, C4 #### [facility] , RBC,Urine 3-4 Normal 0-4 [facility] Comment on above: Order Comment: FASTI NG.JKW Name Collection Type:: Clean-Voided Midstream Performed By: #### E SR, CMP, ADDONUAPLUS, CBC #### [address] #### C3, CH50, C4 #### [facility] , Specificy [place],Urine 1.023 Normal 1.001-1.03 0 [facility] Comment on above: Order Comment: FASTI NG.JKW Name Collection Type:: Clean-Voided Midstream Performed By: #### E SR, CMP, ADDONUAPLUS, CBC #### [place] [address] [place] #### C3, CH50, C4 #### [facility] , Squamous Epithelial Cell,Urine 3-4 High 0-2 [facility] Comment on above: Order Comment: FASTI NG.JKW Name Collection Type:: Clean-Voided Midstream Performed By: #### E SR, CMP, ADDONUAPLUS, CBC #### [facility] [address] [place] [address] [place] #### C3, CH50, C4 #### [facility] , Urobilinogen,Urine 3 mg/dL High Normal [facility] Comment on above: Order Comment: FASTI NG.JKW Name Collection Type:: Clean-Voided Midstream Performed By: #### E SR, CMP, ADDONUAPLUS, CBC #### [place] [address] [place] #### C3, CH50, C4 #### [facility] , WBC,Urine 1-2 Normal 0-4 [facility] Comment on above: Order Comment: FASTI NG.JKW Name Collection Type:: Clean-Voided Midstream Performed By: #### E SR, CMP, ADDONUAPLUS, CBC #### [facility] [address] [place] [address] [place] #### C3, CH50, C4 #### [facility] , Eosinophils Auto (Bld) [#/Vo l]Ordered By: Obie Hylton on 08-11-2024 Eosinophils (Bld) [#/Vol] Automated eosinophil count 0.0-0.45 [facility] Eosinophils/100 WBC Auto (Bl d)Ordered By: Obie Hylton on 08-11-2024 Eosinophils/100 WBC (Bld) Automated eosinophil % . [facility] Epithelial cells.squamous [# /area] in Urine sediment by Automated countOrdered By: Obie Hylton on 08-11-2024 Epithelial cells.squamous Auto (Urine sed) [#/Area] Epithelial cells.squamous [#/area] in Urine sediment by Automated count High 0-2 [facility] Erythrocyte Sedimentation Ra heather 08-11-2024 ESR (Bld) [Velocity] 23 mm/h Normal 0-29 [facility] Comment on above: Result Comment: PERF ORMED BY: [facility] [address] [place] [address] PATHOLOGIST CREDIT RISK MANAGER DOMINICK MONTIEL M.D. Performed By: #### E SR, ADDONUAPLUS, CBC, CMP #### [facility] [address] [place] [address] [place] #### C3, C4, CH50 #### [facility] , Erythrocyte distribution wid th Auto (RBC) [Ratio]Ordered By: Obie Hylton on 08-11-2024 Erythrocyte distribution width (RBC) [Ratio] Erythrocyte distribution width [Ratio] by Automated count 11.9-15.3 [facility] Erythrocyte sedimentation ra te by Photometric methodOrdered By: Obie Hylton on 08-11-2024 ESR Photometric method (Bld) [Velocity] Erythrocyte sedimentation rate by Photometric method 0-29 [facility] Erythrocytes [#/area] in Uri ne sediment by Automated countOrdered By: Obie Hylton on 08-11-2024 RBC Auto (Urine sed) [#/Area] Erythrocytes [#/area] in Urine sediment by Automated count 0-4 [facility] Globulin Calc (S) [Mass/Vol] Ordered By: Obie Hylton on 08-11-2024 Globulin (S) [Mass/Vol] Serum globulin measurement by calculation (mass/volume) [facility] Glucose [Mass/volume] in Ser um or PlasmaOrdered By: Obie Hylton on 08-11-2024 Glucose [Mass/Vol] Glucose [Mass/volume ] in Serum or Plasma 70-100 [facility] Comment on above: ADA recommended refe [...] Urine by Test strip Normal [facility] Hematocrit Auto (Bld) [Volum e fraction]Ordered By: Obie Hylton on 08-11-2024 Hematocrit (Bld) [Volume fraction] Hematocrit [Volume Fraction] of Blood by Automated count 34.0-46.4 [facility] Hemoglobin Test strip Ql (U) Ordered By: Obie Hylton on 08-11-2024 Hemoglobin Ql (U) Hemoglobin [Presence ] in Urine by Test strip Negative [facility] Hemoglobin [Mass/volume] in BloodOrdered By: Obie Hylton on 08-11-2024 Hemoglobin (Bld) [Mass/Vol] Hemoglobin [Mass/volume] in Blood 11.8-15.4 [facility] Hyaline casts [#/area] in Ur ine sediment by Automated countOrdered By: Obie Hylton on 08-11-2024 Hyaline casts Auto (Urine sed) [#/Area] Hyaline casts [#/area] in Urine sediment by Automated count 0-8 [facility] Ketones Test strip Ql (U)Ord ered By: Obie Hylton on 08-11-2024 Ketones Ql (U) Ketones [Presence] i n Urine by Test strip Negative [facility] Leukocyte esterase [Presence ] in Urine by Test stripOrdered By: Obie Hylton on 08-11-2024 Leukocyte esterase Test strip Ql (U) Leukocyte esterase [Presence] in Urine by Test strip Negative [facility] Leukocytes [#/area] in Urine sediment by Automated countOrdered By: Obie Hylton on 08-11-2024 WBC Auto (Urine sed) [#/Area] Leukocytes [#/area] in Urine sediment by Automated count 0-4 [facility] Leukocytes [#/volume] correc pepito for nucleated erythrocytes in Blood by Automated counOrdered By: Obie Hylton on 08-11-2024 WBC corrected for nucl RBC Auto (Bld) [#/Vol] Leukocytes [#/volume] corrected for nucleated erythrocytes in Blood by Automated coun 3.8-11.6 [facility] Lymphocytes Auto (Bld) [#/Vo l]Ordered By: Obie Hylton on 08-11-2024 Lymphocytes (Bld) [#/Vol] Lymphocytes [#/volume] in Blood by Automated count 1.00-4.8 [facility] Lymphocytes/100 WBC Auto (Bl d)Ordered By: Obie Hylton on 08-11-2024 Lymphocytes/100 WBC (Bld) Lymphocytes/100 leukocytes in Blood by Automated count . [facility] MCH Auto (RBC) [Entitic mass ]Ordered By: Obie Hylton on 08-11-2024 MCH (RBC) [Entitic mass] MCH [Entitic mass] by Automated count 24.7-34.3 [facility] MCHC Auto (RBC) [Mass/Vol]Or dered By: Obie Hylton on 08-11-2024 MCHC (RBC) [Mass/Vol] MCHC [Mass/volume] by Automated count 32.0-35.0 [facility] MCV Auto (RBC) [Entitic vol] Ordered By: Obie Hylton on 08-11-2024 MCV (RBC) [Entitic vol] MCV [Entitic volume] by Automated count 80-100 [facility] Monocytes Auto (Bld) [#/Vol] Ordered By: Obie Hylton on 08-11-2024 Monocytes (Bld) [#/Vol] Automated blood monocyte count 0.0-0.8 [facility] Monocytes/100 WBC Auto (Bld) Ordered By: Obie Hylton on 08-11-2024 Monocytes/100 WBC (Bld) Automated monocyte % . [facility] Mucus [Presence] in Urine by AutomatedOrdered By: Obie Hylton on 08-11-2024 Mucus Auto Ql (U) Mucus [Presence] in Urine by Automated [facility] Neutrophils Auto (Bld) [#/Vo l]Ordered By: Obie Hylton on 08-11-2024 Neutrophils (Bld) [#/Vol] Neutrophils [#/volume] in Blood by Automated count 1.8-7.7 [facility] Neutrophils/100 WBC Auto (Bl d)Ordered By: Obie Hylton on 08-11-2024 Neutrophils/100 WBC (Bld) Automated neutrophil % . [facility] Nitrite Test strip Ql (U)Ord ered By: Obie Hylton on 08-11-2024 Nitrite Ql (U) Nitrite [Presence] i n Urine by Test strip Negative [facility] No Panel InformationOrdered By: Obie Hylton on 08-11-2024 Estimated GFR (CKD-EPI) 41.829 mL/Min [facility] Creatinine Clearance (Chem N/A [facility] Nucleated erythrocytes [Pres ence] in Blood by Automated countOrdered By: Obie Hylton on 08-11-2024 Nucleated RBC Auto Ql (Bld) Nucleated erythrocytes [Presence] in Blood by Automated count 0-0.5 [facility] Platelet mean volume Auto (B ld) [Entitic vol]Ordered By: Obie Hylton on 08-11-2024 Platelet mean volume (Bld) [Entitic vol] Platelet mean volume [Entitic volume] in Blood by Automated count 6.3-10.7 [facility] Platelets Auto (Bld) [#/Vol] Ordered By: Obie Hylton on 08-11-2024 Platelets (Bld) [#/Vol] Platelets [#/volume] in Blood by Automated count 150-450 [facility] Potassium [Moles/volume] in Serum or PlasmaOrdered By: Obie Hylton on 08-11-2024 Potassium [Moles/Vol] Potassium [Moles/v olume] in Serum or Plasma 3.5-5.1 [facility] Protein Test strip (U) [Mass /Vol]Ordered By: Obie Hylton on 08-11-2024 Protein (U) [Mass/Vol] Protein [Mass/volume] in Urine by Test strip Negative [facility] Protein [Mass/volume] in Ser um or PlasmaOrdered By: Obie Hylton on 08-11-2024 Protein [Mass/Vol] Protein [Mass/volume ] in Serum or Plasma Low 6.4-8.9 [facility] RBC Auto (Bld) [#/Vol]Ordere d By: Obie Hylton on 08-11-2024 RBC (Bld) [#/Vol] Erythrocytes [#/volu me] in Blood by Automated count 3.60-5.00 [facility] Serum or plasma albumin/glob ulin mass ratioOrdered By: Obie Hylton on 08-11-2024 Albumin/Globulin [Mass ratio] Serum or plasma albumin/globulin mass ratio [facility] Serum or plasma anion gap de terminationOrdered By: Obie Hylton on 08-11-2024 Anion gap [Moles/Vol] Serum or plasma an ion gap determination 6.0-15.0 [facility] Serum or plasma complement C 3 measurement (mass/volume)Ordered By: Obie Hylton on 08-11-2024 Complement C3 [Mass/Vol] Serum or plasma complement C3 measurement (mass/volume) 82-167 [facility] Serum or plasma complement C 4 measurement (mass/volume)Ordered By: Obie Hylton on 08-11-2024 Complement C4 [Mass/Vol] Serum or plasma complement C4 measurement (mass/volume) 12-38 [facility] Comment on above: Performed at: [facility] [place] [id number] Director: Usman Draper PhD, Phone: [phone] Sodium [Moles/volume] in Ser um or PlasmaOrdered By: Obie Hylton on 08-11-2024 Sodium [Moles/Vol] Sodium [Moles/volume ] in Serum or Plasma 136-145 [facility] Specific gravity Test strip (U) [Rel density]Ordered By: Obie Hylton on 08-11-2024 Specific gravity (U) [Rel density] Specific gravity of Urine by Test strip 1.001-1.03 0 [facility] Total hemolytic complement C H50 assayOrdered By: Obie Hylton on 08-11-2024 Total Complement (CH50) 54 U/mL >41 [facility] Comment on above: Age Male Female [...] to determine out of range values.Performed at: [facility] [address] [id number] Director: Usman Draper PhD, Phone: [phone] Urea nitrogen [Mass/volume] in Serum or PlasmaOrdered By: Obie Hylton on 08-11-2024 Urea nitrogen [Mass/Vol] Urea nitrogen [Mass/volume] in Serum or Plasma High 7-25 [facility] Urobilinogen Test strip (U) [Mass/Vol]Ordered By: Obie Hylton on 08-11-2024 Urobilinogen (U) [Mass/Vol] Urobilinogen [Mass/volume] in Urine by Test strip High Normal [facility] WBC Auto (Bld) [#/Vol]Ordere d By: Obie Hylton on 08-11-2024 WBC (Bld) [#/Vol] Leukocytes [#/volume ] in Blood by Automated count 3.8-11.6 [facility] pH Test strip (U)Ordered By: Obie Hylton on 08-11-2024 pH (U) pH of Urine by Test strip 5.0-9.0 [facility] XR Ankle - right 3 Viewson 0 07-10-2024 1. No acute bone abnormality or significant degenerative joint disease. [facility] Bello Henry MD - 07/10/2024 PROCEDURE: [...] bone abnormality or significant degenerative joint disease. [facility] Radiology Study observation (narrative) [facility] XR Ankle - right 3 ViewsOrde red By: Bello Leal on 07-10-2024 [facility] COVID-19, Rapidon 06-24-2024 Interpretation and review of laboratory results Abnormal [facility] SARS-CoV-2 (COVID-19) RdRp gene JUAQUIN+probe Ql (Resp) Detected Abnormal Not Detected [facility] Comment on above: Rapid NAAT: The specimen [...] appropriate Health Department Specimen Description .NASOPHARYNGEAL SWAB [facility] Flu A/B Ag Detectionon 06-24 Flu A Ag Detection Negative Normal NEG [facility] Comment on above: Result Comment: for Influenza A Antigen Performed By: #### F LUABA #### [facility] [address] [place], [place] [id number] Client Representative: Christian Muir MD Flu B Ag Detection Negative Normal [facility] Comment on above: Result Comment: for Influenza B Antigen. Performed By: #### F LUABA #### [facility] [address] [place] [address] Client Representative: Christian Muir MD Rapid Strep Screenon 024 Specimen source Nom (Unsp spec) .THROAT SWAB [facility] Strep A, Molecular Negative NEGATIVE [facility] Rapid influenza A/B antigens on 06-24-2024 FLUAV Ag Ql (Unsp spec) Negative NEGATIVE [facility] Comment on above: for Influenza A Anti gen FLUBV Ag Ql (Unsp spec) Negative NEGATIVE [facility] Comment on above: for Influenza B Anti gen. [facility] [id number] 06-24-2024 SARS-CoV-2 (COVID-19) RNA JUAQUIN+probe Ql (Unsp spec) Detected Abnormal NOTDET [facility] Comment on above: Result Comment: Rapid [...] Department Performed By: #### C OVRB #### [facility] [address] [place] [address] Client Representative: Christian Muir MD Strep Group A, Rapidon 06-24 Strep A, Molecular Negative Normal NEG [facility] Comment on above: Performed By: #### C OVRB #### [facility] [address] [place] [address] Client Representative: Christian Muir MD Source .THROAT SWAB Normal [facility] Comment on above: Performed By: #### C OVRB #### [facility] [address] [place] [address] Client Representative: Christian Muir MD [facility] DIGITAL SCREEN BILA TERALon 05-12-2024 [...] the patient regarding the results. Performing Facility: [facility] [address] [place] [id number] Interpreted by: Ishmael Valentin Jr., MD Signed by: Ishmael Valentin Jr., MD 05/12/24 Final result Normal [facility] Alanine aminotransferase [En zymatic activity/volume] in Serum or PlasmaOrdered By: Obie Hylton on 12-19-2023 ALT [Catalytic activity/Vol] 10 U/L [facility] Albumin [Mass/volume] in Ser um or Plasma by Bromocresol green (BCG) dye binding methoOrdered By: Obie Hylton on 12-19-2023 Albumin BCG dye [Mass/Vol] 3.9 g/dL 3.5-5.7 [facility] Alkaline phosphatase [Enzyma tic activity/volume] in Serum or PlasmaOrdered By: Obie Hylton on 12-19-2023 ALP [Catalytic activity/Vol] 56 U/L 34-104 [facility] Aspartate aminotransferase [ Enzymatic activity/volume] in Serum or PlasmaOrdered By: Obie Hylton on 12-19-2023 AST [Catalytic activity/Vol] 13 U/L 13-39 [facility] Bacteria [Presence] in Urine sediment by Light microscopyOrdered By: Obie Hylton on 12-19-2023 Bacteria LM Ql (Urine sed) Rare [HPF] High None Seen [facility] Basophils Auto (Bld) [#/Vol] Ordered By: Obie Hylton on 12-19-2023 Basophils (Bld) [#/Vol] 0.0 10*3/uL 0.0-0.2 [facility] Basophils/100 WBC Auto (Bld) Ordered By: Obie Hylton on 12-19-2023 Basophils/100 WBC (Bld) 0.3 % . [facility] Bilirubin Test strip Ql (U)O rdered By: Obie Hylton on 12-19-2023 Bilirubin Ql (U) Negative Negative [facility] Bilirubin.total [Mass/volume ] in Serum or PlasmaOrdered By: Obie Hylton on 12-19-2023 Bilirubin [Mass/Vol] 0.4 mg/dL 0.3-1.0 [facility] Calcium [Mass/volume] in Ser um or PlasmaOrdered By: Obie Hylton on 12-19-2023 Calcium [Mass/Vol] 9.1 mg/dL 8.6-10.3 [facility] Carbon dioxide, total [Moles /volume] in Serum or PlasmaOrdered By: Obie Hylton on 12-19-2023 CO2 [Moles/Vol] 27.0 mmol/L 21.0-31.0 [facility] Chloride [Moles/volume] in S liat or PlasmaOrdered By: Obie Hylton on 06-20-2024 Chloride [Moles/Vol] 107 mmol/L 98-107 [facility] Color Auto (U)Ordered By: Cindy scott Warner on 12-19-2023 Color (U) Light-yellow Yellow [facility] Creatinine [Mass/volume] in Serum or PlasmaOrdered By: Obie Hylton on 12-19-2023 Creatinine [Mass/Vol] 1.16 mg/dL 0.60-1.20 [facility] Eosinophils Auto (Bld) [#/Vo l]Ordered By: Obie Hylton on 12-19-2023 Eosinophils (Bld) [#/Vol] 0.1 10*3/uL 0.0-0.45 [facility] Eosinophils/100 WBC Auto (Bl d)Ordered By: Obie Hylton on 12-19-2023 Eosinophils/100 WBC (Bld) 2.5 % . [facility] Epithelial cells.squamous [# /area] in Urine sediment by Microscopy high power fieldOrdered By: Obie Hylton on 12-19-2023 Epithelial cells.squamous LM.HPF (Urine sed) [#/Area] 0-1 [HPF] 0-2 [facility] Erythrocyte distribution wid th Auto (RBC) [Ratio]Ordered By: Obie Hylton on 12-19-2023 Erythrocyte distribution width (RBC) [Ratio] 15.0 % 11.9-15.3 [facility] Erythrocyte sedimentation ra te by Photometric methodOrdered By: Obie Hylton on 12-19-2023 ESR Photometric method (Bld) [Velocity] 12 mm/hr 0-29 [facility] Erythrocytes [#/area] in Uri ne sediment by Microscopy high power fieldOrdered By: Obie Hylton on 12-19-2023 RBC LM.HPF (Urine sed) [#/Area] None seen [HPF] 0-4 [facility] Globulin Calc (S) [Mass/Vol] Ordered By: Obie Hylton on 12-19-2023 Globulin (S) [Mass/Vol] 2.0 g/dL [facility] Glucose [Mass/volume] in Ser um or PlasmaOrdered By: Obie Hylton on 12-19-2023 Glucose [Mass/Vol] 92 mg/dL 70-100 [facility] Comment on above: ADA recommended refe rence rangeRandom Glucose Reference Range is dependent on time and content of last meal. Glucose of more than 200 mg/dL in a nonstressed, ambulatory subject supports the diagnosis of Diabetes Mellitus. Glucose [Mass/volume] in Uri ne by Test stripOrdered By: Obie Hylton on 12-19-2023 Glucose Test strip (U) [Mass/Vol] Normal mg/dL Normal [facility] Hematocrit Auto (Bld) [Volum e fraction]Ordered By: Oibe Hylton on 12-19-2023 Hematocrit (Bld) [Volume fraction] 33.2 % Low 34.0-46.4 [facility] Hemoglobin Test strip Ql (U) Ordered By: Obie Hylton on 12-19-2023 Hemoglobin Ql (U) Negative Negative [facility] Hemoglobin [Mass/volume] in BloodOrdered By: Obie Hylton on 12-19-2023 Hemoglobin (Bld) [Mass/Vol] 11.2 g/dL Low 11.8-15.4 [facility] Ketones Test strip Ql (U)Ord ered By: Obie Hylton on 12-19-2023 Ketones Ql (U) Negative Negative [facility] Leukocyte esterase [Presence ] in Urine by Test stripOrdered By: Obie Hylton on 12-19-2023 Leukocyte esterase Test strip Ql (U) Negative Negative [facility] Leukocytes [#/area] in Urine sediment by Microscopy high power fieldOrdered By: Obie Hylton on 12-19-2023 WBC LM.HPF (Urine sed) [#/Area] None seen [HPF] 0-4 [facility] Leukocytes [#/volume] correc pepito for nucleated erythrocytes in Blood by Automated counOrdered By: Obie Hylton on 12-19-2023 WBC corrected for nucl RBC Auto (Bld) [#/Vol] 5.9 10*3/uL 3.8-11.6 [facility] Lymphocytes Auto (Bld) [#/Vo l]Ordered By: Obie Hylton on 12-19-2023 Lymphocytes (Bld) [#/Vol] 1.1 10*3/uL 1.00-4.8 [facility] Lymphocytes/100 WBC Auto (Bl d)Ordered By: Obie Hylton on 12-19-2023 Lymphocytes/100 WBC (Bld) 17.9 % . [facility] MCH Auto (RBC) [Entitic mass ]Ordered By: Obie Hylton on 12-19-2023 MCH (RBC) [Entitic mass] 31.5 pg 24.7-34.3 [facility] MCHC Auto (RBC) [Mass/Vol]Or dered By: Oibe Hylton on 12-19-2023 MCHC (RBC) [Mass/Vol] 33.8 g/dL 32.0-35.0 [facility] MCV Auto (RBC) [Entitic vol] Ordered By: Obie Hylton on 12-19-2023 MCV (RBC) [Entitic vol] 93.2 fL 80-100 [facility] Monocytes Auto (Bld) [#/Vol] Ordered By: Obie Hylton on 12-19-2023 Monocytes (Bld) [#/Vol] 0.5 10*3/uL 0.0-0.8 [facility] Monocytes/100 WBC Auto (Bld) Ordered By: Obie Hylton on 12-19-2023 Monocytes/100 WBC (Bld) 9.2 % . [facility] Neutrophils Auto (Bld) [#/Vo l]Ordered By: Obie Hylton on 12-19-2023 Neutrophils (Bld) [#/Vol] 4.1 10*3/uL 1.8-7.7 [facility] Neutrophils/100 WBC Auto (Bl d)Ordered By: Obie Hylton on 12-19-2023 Neutrophils/100 WBC (Bld) 70.1 % . [facility] Nitrite Test strip Ql (U)Ord ered By: Obie Hylton on 12-19-2023 Nitrite Ql (U) Negative Negative [facility] No Panel InformationOrdered By: Obie Hylton on 12-19-2023 Estimated GFR (CKD-EPI) 47.958 mL/Min [facility] Creatinine Clearance (Chem N/A [facility] Total Complement (CH50) 57 U/mL >41 [facility] Comment on above: Age Male Female [...] determine out of range values.Performed at: - [address] [id number] Director: Usman Draper PhD, Phone: [phone] Nucleated erythrocytes [Pres ence] in Blood by Automated countOrdered By: Obie Hylton on 12-19-2023 Nucleated RBC Auto Ql (Bld) 0.2 /100{WBC} 0-0.5 [facility] Platelet mean volume Auto (B ld) [Entitic vol]Ordered By: Obie Hylton on 12-19-2023 Platelet mean volume (Bld) [Entitic vol] 8.7 fL 6.3-10.7 [facility] Platelets Auto (Bld) [#/Vol] Ordered By: Obie Hylton on 12-19-2023 Platelets (Bld) [#/Vol] 201 10*3/uL 150-450 [facility] Potassium [Moles/volume] in Serum or PlasmaOrdered By: Obie Hylton on 12-19-2023 Potassium [Moles/Vol] 4.3 mmol/L 3.5-5.1 [facility] Protein Test strip (U) [Mass /Vol]Ordered By: Obie Hylton on 12-19-2023 Protein (U) [Mass/Vol] Negative Negative [facility] Protein [Mass/volume] in Ser um or PlasmaOrdered By: Obie Hylton on 12-19-2023 Protein [Mass/Vol] 5.9 g/dL Low 6.4-8.9 [facility] RBC Auto (Bld) [#/Vol]Ordere d By: Obie Hylton on 12-19-2023 RBC (Bld) [#/Vol] 3.56 10*6/uL Low 3.60-5.00 [facility] Serum or plasma albumin/glob ulin mass ratioOrdered By: Obie Hylton on 12-19-2023 Albumin/Globulin [Mass ratio] 2.0 {ratio} [facility] Serum or plasma anion gap de terminationOrdered By: Obie Hylton on 12-19-2023 Anion gap [Moles/Vol] 9.3 mmol/L 6.0-15.0 [facility] Serum or plasma complement C 3 measurement (mass/volume)Ordered By: Obie Hylton on 12-19-2023 Complement C3 [Mass/Vol] 120 mg/dL 82-167 [facility] Comment on above: Performed at: [facility] [employer] [address] [id number] Director: Usman Draper PhD, Phone: [phone] Serum or plasma complement C 4 measurement (mass/volume)Ordered By: Obie Hylton on 12-19-2023 Complement C4 [Mass/Vol] 22 mg/dL 12-38 [facility] Sodium [Moles/volume] in Ser um or PlasmaOrdered By: Obie Hylton on 12-19-2023 Sodium [Moles/Vol] 139 mmol/L 136-145 [facility] Specific gravity Test strip (U) [Rel density]Ordered By: Obie Hylton on 12-19-2023 Specific gravity (U) [Rel density] 1.020 1.001-1.03 0 [facility] Urea nitrogen [Mass/volume] in Serum or PlasmaOrdered By: Obie Hylton on 12-19-2023 Urea nitrogen [Mass/Vol] 33 mg/dL High 7-25 [facility] Urine appearanceOrdered By: Obie Hylton on 12-19-2023 Appearance (U) Clear Clear [facility] Urobilinogen Test strip (U) [Mass/Vol]Ordered By: Obie Hylton on 12-19-2023 Urobilinogen (U) [Mass/Vol] Normal mg/dL Normal [facility] WBC Auto (Bld) [#/Vol]Ordere d By: Obie Hylton on 12-19-2023 WBC (Bld) [#/Vol] 5.9 10*3/uL 3.8-11.6 [facility] pH Test strip (U)Ordered By: Obie Hylton on 12-19-2023 pH (U) 5.5 [pH] 5.0-9.0 [facility] Basic Metabolic Profon 12-11 Anion gap [Moles/Vol] 11 mmol/L Normal 9-17 [facility] Comment on above: Performed By: #### B MP #### [facility] [address] [place], [place] [id number] Client Representative: Christian Muir MD BUN/CRE Ratio 19 Normal 9-20 [facility] Comment on above: Performed By: #### B MP #### [facility] [address] [place], [place] [phone] Client Representative: Christian Muir MD Calcium [Mass/Vol] 9.1 mg/dL Normal 8.6-10.4 [facility] Comment on above: Performed By: #### B MP #### [facility] [address] [place], [place] [phone] Client Representative: Christian Muir MD Chloride [Moles/Vol] 104 mmol/L Normal 98-107 [facility] Comment on above: Performed By: #### B MP #### [facility] [address] [place], [place] [phone] Client Representative: Christian Muir MD CO2 [Moles/Vol] 22 mmol/L Normal 20-31 [facility] Comment on above: Performed By: #### B MP #### [facility] [address] [place], [place] [phone] Client Representative: Christian Muir MD Creatinine [Mass/Vol] 1.3 mg/dL High 0.5-0.9 [facility] Comment on above: Performed By: #### B MP #### [facility] [address] [place], [place] [phone] Client Representative: Christian Muir MD GFR/1.73 sq M.predicted among non-blacks MDRD (S/P/Bld) [Vol rate/Area] 42 mL/min/{1.73_m2} Low >60 [facility] Comment on above: Result Comment: These [...] secretion. Performed By: #### B MP #### [facility] [address] [place] [address] Client Representative: Christian Muir MD Glucose [Mass/Vol] 88 mg/dL Normal 70-99 [facility] Comment on above: Performed By: #### B MP #### [facility] [address] [place] [address] Client Representative: Christian Muir MD Potassium [Moles/Vol] 4.3 mmol/L Normal 3.7-5.3 [facility] Comment on above: Performed By: #### B MP #### [facility] [address] [place] [address] Client Representative: Christian Muir MD Sodium [Moles/Vol] 137 mmol/L Normal 135-144 [facility] Comment on above: Performed By: #### B MP #### [facility] [address] [place] [address] Client Representative: Christian Muir MD Urea nitrogen [Mass/Vol] 25 mg/dL High 8-23 [facility] Comment on above: Performed By: #### B MP #### [facility] [address] [place] [address] Client Representative: Christian Muir MD Basic Metabolic Panelon 05-1 Anion gap [Moles/Vol] 13 mmol/L 9 - 17 mmol/L [facility] Calcium [Mass/Vol] 9.1 mg/dL 8.6 - 10. 4 mg/dL [facility] Chloride [Moles/Vol] 104 mmol/L 98 - 10 7 mmol/L [facility] CO2 [Moles/Vol] 20 mmol/L 20 - 31 mmol/L [facility] Creatinine [Mass/Vol] 1.1 mg/dL High 0.5 - 0.9 mg/dL [facility] EstBill Filt Rate 51 Low - [facility] Comment on above: These results are not [...] 153 mg/dL High 70 - 99 mg/dL [facility] Interpretation and review of laboratory results Abnormal [facility] Potassium [Moles/Vol] 3.3 mmol/L Low 3.7 - 5.3 mmol/L [facility] Sodium [Moles/Vol] 137 mmol/L 135 - 144 mmol/L [facility] Urea nitrogen [Mass/Vol] 26 mg/dL High 8 - 23 mg/dL [facility] Urea nitrogen/Creatinine [Mass ratio] 24 mg/mg High - [facility] Basic Metabolic Profon 11-13 Anion gap [Moles/Vol] 13 mmol/L Normal - [facility] Comment on above: Performed By: #### T SH, CBC, TROPI, BMP #### [facility] [address] [place] [address] Client Representative: Christian Muir MD BUN/CRE Ratio 24 High - [facility] Comment on above: Performed By: #### T SH, CBC, TROPI, BMP #### [facility] [address] [place] [address] Client Representative: Christian Muir MD Calcium [Mass/Vol] 9.1 mg/dL Normal 8.6-10.4 [facility] Comment on above: Performed By: #### T DAVE CBC, TROPI, BMP #### [facility] [address] [place] [address] Client Representative: Christian Muir MD Chloride [Moles/Vol] 104 mmol/L Normal 98-107 [facility] Comment on above: Performed By: #### T DAVE, CBC, TROPI, BMP #### [facility] [address] [place] [address] Client Representative: Christian Muir MD CO2 [Moles/Vol] 20 mmol/L Normal 20-31 [facility] Comment on above: Performed By: #### T MICKEY ACOSTA, TROPI, BMP #### [facility] [address] [place] [address] Client Representative: Christian Muir MD Creatinine [Mass/Vol] 1.1 mg/dL High 0.5-0.9 [facility] Comment on above: Performed By: #### T MICKEY ACOSTA, TROPI, BMP #### [facility] [address] [place] [address] Client Representative: Christian Muir MD GFR/1.73 sq M.predicted among non-blacks MDRD (S/P/Bld) [Vol rate/Area] 51 mL/min/{1.73_m2} Low >60 [facility] Comment on above: Result Comment: These [...] renal tubular secretion. Performed By: #### T DVAE, CBC, TROPI, BMP #### [facility] [address] [place], [place] [phone] Client Representative: Christian Muir MD Glucose [Mass/Vol] 153 mg/dL High 70-99 [facility] Comment on above: Performed By: #### T DAVE, CBC, TROPI, BMP #### [facility] [address] [place], [place] [phone] Client Representative: Christian Muir MD Potassium [Moles/Vol] 3.3 mmol/L Low 3.7-5.3 [facility] Comment on above: Performed By: #### T DAVE, CBC, TROPI, BMP #### [facility] [address] [place], [place] [phone] Client Representative: Christian Muir MD Sodium [Moles/Vol] 137 mmol/L Normal 135-144 [facility] Comment on above: Performed By: #### T DAVE, CBC, TROPI, BMP #### [facility] [address] [place], [place] [phone] Client Representative: Christian Muir MD Urea nitrogen [Mass/Vol] 26 mg/dL High 8-23 [facility] Comment on above: Performed By: #### T DAVE, CBC, TROPI, BMP #### [facility] [address] [place], [place] [phone] Client Representative: Christian Muir MD [facility] 11-14-2023 Erythrocyte distribution width (RBC) [Ratio] 14.7 % 12.1 - 15.2 % [facility] Hematocrit (Bld) [Volume fraction] 37.0 % 36.0 - 46.0 % [facility] Hemoglobin (Bld) [Mass/Vol] 12.2 g/dL 12.0 - 16.0 g/dL [facility] Interpretation and review of laboratory results Abnormal [facility] MCH (RBC) [Entitic mass] 31.1 pg 26.0 - 34.0 pg [facility] MCHC (RBC) [Mass/Vol] 33.0 g/dL 31.0 - 37.0 g/dL [facility] MCV (RBC) [Entitic vol] 94.4 fL 80.0 - 100.0 fL [facility] Platelet mean volume (Bld) [Entitic vol] 10.3 fL 6.0 - 12.0 fL [facility] Platelets (Bld) [#/Vol] 179 10*3/uL [facility] RBC (Bld) [#/Vol] 3.92 10*6/uL Low 4.00 - 5.20 m/uL [facility] WBC other (Bld) [#/Vol] 4.3 [facility] Erythrocyte distribution width (RBC) [Ratio] 14.7 % Normal 12.1-15.2 [facility] Comment on above: Performed By: #### T SH, CBC, TROPI, BMP #### [facility] [address] [place] [address] Client Representative: Christian Muir MD Hematocrit (Bld) [Volume fraction] 37.0 % Normal 36.0-46.0 [facility] Comment on above: Performed By: #### T DAVE, CBC, TROPI, BMP #### [facility] [address] [place] [address] Client Representative: Christian Muir MD Hemoglobin (Bld) [Mass/Vol] 12.2 g/dL Normal 12.0-16.0 [facility] Comment on above: Performed By: #### T SH, CBC, TROPI, BMP #### [facility] [address] [place] [address] Client Representative: Christian Muir MD MCH (RBC) [Entitic mass] 31.1 pg Normal 26.0-34.0 [facility] Comment on above: Performed By: #### T SH, CBC, TROPI, BMP #### [facility] [address] [place] [address] Client Representative: Christian Muir MD MCHC (RBC) [Mass/Vol] 33.0 g/dL Normal 31.0-37.0 [facility] Comment on above: Performed By: #### T SH, CBC, TROPI, BMP #### [facility] [address] [place], [place] [phone] Client Representative: Christian Muir MD MCV (RBC) [Entitic vol] 94.4 fL Normal 80.0-100.0 [facility] Comment on above: Performed By: #### T SH, CBC, TROPI, BMP #### [facility] [address] [place] [id number] [phone] Client Representative: Christian Muir MD Platelet mean volume (Bld) [Entitic vol] 10.3 fL Normal 6.0-12.0 [facility] Comment on above: Performed By: #### T SH, CBC, TROPI, BMP #### [facility] [address] [place] [address] Client Representative: Christian Muir MD Platelets (Bld) [#/Vol] 179 10*3/uL Normal 140-450 [facility] Comment on above: Performed By: #### T SH, CBC, TROPI, BMP #### [facility] [address] [place] [phone] Client Representative: Christian Muir MD RBC (Bld) [#/Vol] 3.92 10*6/uL Low 4.00-5.20 [facility] Comment on above: Performed By: #### T SH, CBC, TROPI, BMP #### [facility] [address] [place] [phone] Client Representative: Christian Muir MD WBC (Bld) [#/Vol] 4.3 10*3/uL Normal 3.5-11.0 [facility] Comment on above: Performed By: #### T SH, CBC, TROPI, BMP #### [facility] [address] [place] [address] Client Representative: Christian Muir MD No Panel Informationon 11-13 [facility] TSHon 11-14-2023 TSH Qn 1.80 m[IU]/L [facility] Thyroid Stim. Horm.on 2023 Thyroid Stim. Horm. 1.80 uIU/mL Normal 0.30-5.00 [facility] Comment on above: Performed By: #### T SH, CBC, TROPI, BMP #### [facility] [address] [place] [address] Client Representative: Christian Muir MD Troponinon 11-14-2023 Troponin I.cardiac High sensitivity method [Mass/Vol] 10 ng/L 0 - 14 ng/L [facility] Comment on above: High Sensitivity Tro ponin values cannot be compared with other Troponin methodologies. Troponin, High Sens 10 ng/L Normal 0-14 [facility] Comment on above: Result Comment: High Sensitivity Troponin values cannot be compared with other Troponin methodologies. Performed By: #### T SH, CBC, TROPI, BMP #### [facility] [address] [place] [address] Client Representative: Christian Muir MD CBC with Auto Differentialon 10-23-2023 Absolute Bands 0.18 [facility] Bands 4 % 0 - 10 % [facility] Basophils (Bld) [#/Vol] [facility] Basophils/100 WBC (Bld) 0 - 2 % [facility] Eosinophils % 0 - 5 % [facility] Eosinophils (Bld) [#/Vol] [facility] Erythrocyte distribution width (RBC) [Ratio] 14.7 % 12.1 - 15.2 % [facility] Hematocrit (Bld) [Volume fraction] 39.4 % 36.0 - 46.0 % [facility] Hemoglobin (Bld) [Mass/Vol] 12.9 g/dL 12.0 - 16.0 g/dL [facility] Immature granulocytes (Bld) [#/Vol] [facility] Immature granulocytes/100 WBC (Bld) 0 % [facility] Interpretation and review of laboratory results Abnormal [facility] Lymphocytes/100 WBC (Bld) 5 % Low 15 - 40 % [facility] Lymphocytes/100 WBC (Bld) 0.23 % Low [facility] MCH (RBC) [Entitic mass] 30.6 pg 26.0 - 34.0 pg [facility] MCHC (RBC) [Mass/Vol] 32.7 g/dL 31.0 - 37.0 g/dL [facility] MCV (RBC) [Entitic vol] 93.4 fL 80.0 - 100.0 fL [facility] Monocytes/100 WBC (Bld) 6 % 4 - 8 % [facility] Monocytes/100 WBC (Bld) 0.27 % [facility] Morphology Igor (Bld) [Interp] Platelet morphology normal. [facility] Morphology Igor (Bld) [Interp] RBC morphology normal. [facility] Morphology Igor (Bld) [Interp] Manual Differential Performed [facility] Neutrophils/100 WBC (Bld) 85 % High 47 - 75 % [facility] Platelet mean volume (Bld) [Entitic vol] 9.4 fL 6.0 - 12.0 fL [facility] Platelets (Bld) [#/Vol] 152 10*3/uL [facility] RBC (Bld) [#/Vol] 4.22 10*6/uL 4.00 - 5.20 m/uL [facility] Segmented neutrophils/100 WBC (Bld) 3.82 % [facility] WBC other (Bld) [#/Vol] 4.5 [facility] CBC with Diffon 10-23-2023 Abs. Bands 0.18 k/uL Normal 0.0-1.0 [facility] Comment on above: Performed By: #### C OVRB #### [facility] [address] [place] [address] Client Representative: Christian Muir MD Abs. Basophil Normal 0.0-0.2 [facility] Comment on above: Performed By: #### C OVRB #### [facility] [address] [place], [place] [phone] Client Representative: Christian Muir MD Abs. Eosinophil Normal 0.0-0.4 [facility] Comment on above: Performed By: #### C OVRB #### [facility] [address] [place], [place] [phone] Client Representative: Christian Muir MD Abs.Imm.Granulocyte Normal 0.00-0.30 [facility] Comment on above: Performed By: #### C OVRB #### [facility] [address] [place], [place] [phone] Client Representative: Christian Muir MD Abs.Neutrophil (Seg) 3.82 k/uL Normal 2.5-7.0 [facility] Comment on above: Performed By: #### C OVRB #### [facility] [address] [place] [address] Client Representative: Christian Muir MD Bands 4 % Normal 0-10 [facility] Comment on above: Performed By: #### C OVRB #### [facility] [address] [place], [place] [id number] Client Representative: Christian Muir MD Basophil Normal 0-2 [facility] Comment on above: Performed By: #### C OVRB #### [facility] [address] [place], [place] [phone] Client Representative: Christian Muir MD Eosinophil Normal 0-5 [facility] Comment on above: Performed By: #### C OVRB #### [facility] [address] [place], [place] [phone] Client Representative: Christian Muir MD Immature Granulocyte Normal 0 [facility] Comment on above: Performed By: #### C OVRB #### [facility] [address] [place], [place] [phone] Client Representative: Christian Muir MD Lymphocytes (Bld) [#/Vol] 0.23 10*3/uL Low 1.0-4.8 [facility] Comment on above: Performed By: #### C OVRB #### [facility] [address] [place], [place] [phone] Client Representative: Christian Muir MD Lymphocytes/100 WBC (Bld) 5 % Low 15-40 [facility] Comment on above: Performed By: #### C OVRB #### [facility] [address] [place] [address] Client Representative: Christian Muir MD Monocytes (Bld) [#/Vol] 0.27 10*3/uL Normal 0.0-1.0 [facility] Comment on above: Performed By: #### C OVRB #### [facility] [address] [place] [address] Client Representative: Christian Muir MD Monocytes/100 WBC (Bld) 6 % Normal 4-8 [facility] Comment on above: Performed By: #### C OVRB #### [facility] [address] [place] [address] Client Representative: Christian Muir MD Morphology Igor (Bld) [Interp] Platelet morphology normal. Normal [facility] Comment on above: Result Comment: RBC morphology normal. Manual Differential Performed Performed By: #### C OVRB #### [facility] [address] [place] [address] Client Representative: Christian Muir MD Neutrophil (Seg) 85 % High 47-75 [facility] Comment on above: Performed By: #### C OVRB #### [facility] [address] [place] [address] Client Representative: Christian Muir MD Erythrocyte distribution width (RBC) [Ratio] 14.7 % Normal 12.1-15.2 [facility] Comment on above: Performed By: #### C OVRB #### [facility] [address] [place] [address] Client Representative: Christian Muir MD Hematocrit (Bld) [Volume fraction] 39.4 % Normal 36.0-46.0 [facility] Comment on above: Performed By: #### C OVRB #### [facility] [address] [place] [address] Client Representative: Christian Muir MD Hemoglobin (Bld) [Mass/Vol] 12.9 g/dL Normal 12.0-16.0 [facility] Comment on above: Performed By: #### C OVRB #### [facility] [address] [place] [address] Client Representative: Christian Muir MD MCH (RBC) [Entitic mass] 30.6 pg Normal 26.0-34.0 [facility] Comment on above: Performed By: #### C OVRB #### [facility] [address] [place] [address] Client Representative: Christian Muir MD MCHC (RBC) [Mass/Vol] 32.7 g/dL Normal 31.0-37.0 [facility] Comment on above: Performed By: #### C OVRB #### [facility] [address] [place] [address] Client Representative: Christian Muir MD MCV (RBC) [Entitic vol] 93.4 fL Normal 80.0-100.0 [facility] Comment on above: Performed By: #### C OVRB #### [facility] [address] [place] [address] Client Representative: Christian Muir MD Platelet mean volume (Bld) [Entitic vol] 9.4 fL Normal 6.0-12.0 [facility] Comment on above: Performed By: #### C OVRB #### [facility] [address] [place], [place] [phone] Client Representative: Christian Muir MD Platelets (Bld) [#/Vol] 152 10*3/uL Normal 140-450 [facility] Comment on above: Performed By: #### C OVRB #### [facility] [address] [place], [place] [phone] Client Representative: Christian Muir MD RBC (Bld) [#/Vol] 4.22 10*6/uL Normal 4.00-5.20 [facility] Comment on above: Performed By: #### C OVRB #### [facility] [address] [place], [place] [phone] Client Representative: Christian Muir MD WBC (Bld) [#/Vol] 4.5 10*3/uL Normal 3.5-11.0 [facility] Comment on above: Performed By: #### C OVRB #### [facility] [address] [place] [address] Client Representative: Christian Muir MD Comp Metabolic Profon 2023 Albumin [Mass/Vol] 3.9 g/dL Normal 3.5-5.2 [facility] Comment on above: Performed By: #### T CARLOS FRANCO, CP #### [facility] [address] [place], [place] [phone] Client Representative: Christian Muir MD Alkaline Phos 49 U/L Normal 35-104 [facility] Comment on above: Performed By: #### T CARLOS FRANCO, CP #### [facility] [address] [place], [place] [phone] Client Representative: Christian Muir MD ALT [Catalytic activity/Vol] 12 U/L Normal 5-33 [facility] Comment on above: Performed By: #### T CARLOS FRANCO, CP #### [facility] [address] [place], [place] [phone] Client Representative: Christian Muir MD Anion gap [Moles/Vol] 15 mmol/L Normal 9-17 [facility] Comment on above: Performed By: #### T CARLOS FRANCO, CP #### [facility] [address] [place] [address] Client Representative: Christian Muir MD AST [Catalytic activity/Vol] 15 U/L Normal <32 [facility] Comment on above: Performed By: #### T CARLOS FRANCO, CP #### [facility] [address] [place], [place] [phone] Client Representative: Christian Muir MD Bilirubin [Mass/Vol] 0.4 mg/dL Normal 0.3-1.2 [facility] Comment on above: Performed By: #### T CARLOS FRANCO, CP #### [facility] [address] [place], [place] [phone] Client Representative: Christian Muir MD BUN/CRE Ratio 29 High 9-20 [facility] Comment on above: Performed By: #### T CARLOS FRANCO, CP #### [facility] [address] [place], [place] [phone] Client Representative: Christian Muir MD Calcium [Mass/Vol] 8.9 mg/dL Normal 8.6-10.4 [facility] Comment on above: Performed By: #### T CARLOS FRANCO, CP #### [facility] [address] [place], [place] [phone] Client Representative: Christian Muir MD Chloride [Moles/Vol] 107 mmol/L Normal 98-107 [facility] Comment on above: Performed By: #### T CARLOS FRANCO, CP #### [facility] [address] [place] [address] Client Representative: Christian Muir MD CO2 [Moles/Vol] 17 mmol/L Low 20-31 [facility] Comment on above: Performed By: #### T CARLOS FRANCO, CP #### [facility] [address] [address] Client Representative: Christian Muir MD Creatinine [Mass/Vol] 1.1 mg/dL High 0.5-0.9 [facility] Comment on above: Performed By: #### T CARLOS FRANCO, CP #### [facility] [address] [place] [address] Client Representative: Christian Muir MD GFR/1.73 sq M.predicted among non-blacks MDRD (S/P/Bld) [Vol rate/Area] 51 mL/min/{1.73_m2} Low >60 [facility] Comment on above: Result Comment: These [...] By: #### T CARLOS FRANCO, CP #### [facility] [address] [place] [address] Client Representative: Christian Muir MD Glucose [Mass/Vol] 136 mg/dL High 70-99 [facility] Comment on above: Performed By: #### T CARLOS FRANCO, CP #### [facility] [address] [place] [address] Client Representative: Christian Muir MD Potassium [Moles/Vol] 3.6 mmol/L Low 3.7-5.3 [facility] Comment on above: Performed By: #### T CARLOS FRANCO, CP #### [facility] [address] [place] [address] Client Representative: Christian Muir MD Protein [Mass/Vol] 6.6 g/dL Normal 6.4-8.3 [facility] Comment on above: Performed By: #### CARLOS QUEVEDO, CP #### [facility] [address] [place] [address] Client Representative: Christian Muir MD Sodium [Moles/Vol] 139 mmol/L Normal 135-144 [facility] Comment on above: Performed By: #### CARLOS QUEVEDO, CP #### [facility] [address] [place] [address] Client Representative: Christian Muir MD Urea nitrogen [Mass/Vol] 32 mg/dL High 8-23 [facility] Comment on above: Performed By: #### CARLOS QUEVEDO, CP #### [facility] [address] [place] [address] Client Representative: Christian Muir MD Comprehensive Metabolic Pane [facility] 10-23-2023 Albumin [Mass/Vol] 3.9 g/dL 3.5 - 5.2 g/dL [facility] ALP [Catalytic activity/Vol] 49 U/L 35 - 104 U/L [facility] ALT [Catalytic activity/Vol] 12 U/L 5 - 33 U/L [facility] Anion gap [Moles/Vol] 15 mmol/L 9 - 17 mmol/L [facility] AST [Catalytic activity/Vol] 15 U/L NINF - 32 U/L [facility] Bilirubin [Mass/Vol] 0.4 mg/dL 0.3 - 1 .2 mg/dL [facility] Calcium [Mass/Vol] 8.9 mg/dL 8.6 - 10. 4 mg/dL [facility] Chloride [Moles/Vol] 107 mmol/L 98 - 10 7 mmol/L [facility] CO2 [Moles/Vol] 17 mmol/L Low 20 - 31 mmol/L [facility] Creatinine [Mass/Vol] 1.1 mg/dL High 0.5 - 0.9 mg/dL [facility] GFR/1.73 sq M.predicted MDRD (S/P/Bld) [Vol rate/Area] 51 mL/min/{1.73_m2} Low - PINF [facility] Comment on above: These results are [...] 136 mg/dL High 70 - 99 mg/dL [facility] Interpretation and review of laboratory results Abnormal [facility] Potassium [Moles/Vol] 3.6 mmol/L Low 3.7 - 5.3 mmol/L [facility] Protein [Mass/Vol] 6.6 g/dL 6.4 - 8.3 g/dL [facility] Sodium [Moles/Vol] 139 mmol/L 135 - 144 mmol/L [facility] Urea nitrogen [Mass/Vol] 32 mg/dL High 8 - 23 mg/dL [facility] Urea nitrogen/Creatinine [Mass ratio] 29 mg/mg High 9 - 20 [facility] Microscopic Urinalysison - [facility] Bacteria LM Ql (Urine sed) RARE Abnormal None [facility] Epithelial cells LM.HPF (Urine sed) [#/Area] 5 TO 10 /HPF [facility] Interpretation and review of laboratory results Abnormal [facility] RBC LM.HPF (Urine sed) [#/Area] 2 TO 5 [facility] WBC LM.HPF (Urine sed) [#/Area] NONE SEEN 0 /HPF [facility] Troponinon 10-23-2023 Interpretation and review of laboratory results Abnormal [facility] Troponin I.cardiac High sensitivity method [Mass/Vol] 19 ng/L High 0 - 14 ng/L [facility] Comment on above: High Sensitivity Tro ponin values cannot be compared with other Troponin methodologies. [facility] Troponin, High Sens 19 ng/L High 0-14 [facility] Comment on above: Result Comment: High Sensitivity Troponin values cannot be compared with other Troponin methodologies. Performed By: #### C OVRB #### [facility] [address] [place] [address] Client Representative: Christian Muir MD Interpretation and review of laboratory results Abnormal [facility] Troponin I.cardiac High sensitivity method [Mass/Vol] 15 ng/L High 0 - 14 ng/L [facility] Comment on above: High Sensitivity Tro ponin values cannot be compared with other Troponin methodologies. [facility] Troponin, High Sens 15 ng/L High 0-14 [facility] Comment on above: Result Comment: High Sensitivity Troponin values cannot be compared with other Troponin methodologies. Performed By: #### C OVRB #### [facility] [address] [place], [place] [phone] Client Representative: Christian Muir MD UA w/Reflex Cultureon 2023 Bilirubin, SemiQt,Ur Negative Normal NEG [facility] Comment on above: Performed By: #### F LUABA #### [facility] [address] [place], [place] [phone] Client Representative: Christian Muir MD Blood, Urine 2+ Abnormal NEG [facility] Comment on above: Performed By: #### F LUABA #### [facility] [address] [place], [place] [phone] Client Representative: Christian Muir MD Clarity (U) Clear Normal CLEAR [facility] Comment on above: Performed By: #### F LUABA #### [facility] [address] [place] [address] Client Representative: Christian Muir MD Color (U) Yellow Normal YEL [facility] Comment on above: Performed By: #### F LUABA #### [facility] [address] [place], [place] [phone] Client Representative: Christian Muir MD Comment Normal [facility] Comment on above: Performed By: #### F LUABA #### [facility] [address] [place], [place] [phone] Client Representative: Christian Muir MD Glucose Ql (U) Negative Normal NEG [facility] Comment on above: Performed By: #### F LUABA #### [facility] [address] [place], [place] [phone] Client Representative: Christian Muir MD Ketones Ql (U) TRACE Abnormal NEG [facility] Comment on above: Performed By: #### F LUABA #### [facility] [address] [place] [address] Client Representative: Christian Muir MD Leukocyte esterase Test strip Ql (U) Negative Normal NEG [facility] Comment on above: Performed By: #### F LUABA #### [facility] [address] [place] [address] Client Representative: Christian Muir MD Nitrite,Ur Negative Normal NEG [facility] Comment on above: Performed By: #### F LUABA #### [facility] [address] [place], [place] [phone] Client Representative: Christian Muir MD PH,Ur 5.0 Normal 5.0-8.0 [facility] Comment on above: Performed By: #### F LUABA #### [facility] [address] [place] [address] Client Representative: Christian Muir MD Protein Ql (U) 1+ mg/dL Abnormal NEG [facility] Comment on above: Performed By: #### F LUABA #### [facility] [address] [place] [address] Client Representative: Christian Muir MD Spec. [place],Ur 1.020 Normal 1.005-1.03 0 [facility] Comment on above: Performed By: #### F ROYAL #### [facility] [address] [place] [address] Client Representative: Christian Muir MD Urobilinogen,Ur Normal Normal 0.0-1.0 [facility] Comment on above: Performed By: #### F CHUCKABA #### [facility] [address] [place] [address] Client Representative: Christian Muir MD Urinalysis with Reflex to Cu ltureon 10-23-2023 Bilirubin Ql (U) Negative NEGATIVE [facility] Clarity (U) Clear Clear [facility] Color (U) Yellow Yellow [facility] Comment [facility] Glucose Test strip (U) [Mass/Vol] Negative NEGATIVE mg/dL [facility] Hemoglobin Auto test strip Ql (U) 2+ Abnormal NEGATIVE [facility] Interpretation and review of laboratory results Abnormal [facility] Ketones (U) [Mass/Vol] TRACE Abnormal NEGATIVE mg/dL [facility] Leukocyte esterase Test strip Ql (U) Negative NEGATIVE [facility] Nitrite Ql (U) Negative NEGATIVE [facility] pH (U) 5.0 [pH] 5.0 - 8.0 [facility] Protein (U) [Mass/Vol] 1+ Abnormal NEGATIVE mg/dL [facility] Specific gravity (U) [Rel density] 1.020 1.005 - 1.030 [facility] Urobilinogen Qn (U) Normal 0.0 - 1. 0 EU/dL [facility] Urinalysis,Microon 4 ----- Normal [facility] Comment on above: Performed By: #### F ROYAL #### [facility] [address] [place] [address] Client Representative: Christian Muir MD Bacteria RARE Abnormal NONE [facility] Comment on above: Performed By: #### F LUABA #### [facility] [address] [place] [address] Client Representative: Christian Muir MD Epithelial cells LM Ql (Urine sed) 5 TO 10 Normal [facility] Comment on above: Performed By: #### F LUABA #### [facility] [address] [place] [address] Client Representative: Christian Muir MD Urine RBC's 2 TO 5 Normal 0-2 [facility] Comment on above: Performed By: #### F LUABA #### [facility] [address] [place] [address] Client Representative: Christian Muir MD Urine WBC's NONE SEEN Normal 0 [facility] Comment on above: Performed By: #### F LUABA #### [facility] [address] [place] [address] Client Representative: Christian Muir MD BUN + Creatinineon 4 Creatinine [Mass/Vol] 1.2 mg/dL High 0.5-0.9 [facility] Comment on above: Performed By: #### B UNCRT #### [facility] [address] [place] [address] Client Representative: Christian Muir MD GFR/1.73 sq M.predicted among non-blacks MDRD (S/P/Bld) [Vol rate/Area] 46 mL/min/{1.73_m2} Low >60 [facility] Comment on above: Result Comment: These [...] secretion. Performed By: #### B UNCRT #### [facility] [address] [place] [address] Client Representative: Christian Muir MD Urea nitrogen [Mass/Vol] 35 mg/dL High 02-20 [facility] Comment on above: Performed By: #### B UNCRT #### [facility] [address] [place] [address] Client Representative: Christian Muir MD CT UROGRAMon 10-22-2023 CT [...] Valentin Jr., MD 10/22/23 Final result Normal [facility] Cult,Urineon 10-02-2023 Cult,Urine Specimen Description .CLEAN [...] Tobramycin <=1 SUSCEPTIBLE Trimethoprim/Sulfa <=20 SUSCEPTIBLE Susceptible [facility] Comment on above: Performed By: #### F LUVICK #### [facility] [address] [place], [place] [phone] Client Representative: Christian Muir MD Urinalysis w/ Microon 2023 ----- Normal [facility] Comment on above: Performed By: #### U AMIC #### [facility] [address] [place], [place] [phone] Client Representative: Christian Muir MD Bacteria 2+ Abnormal NONE [facility] Comment on above: Performed By: #### U AMIC #### [facility] [address] [place], [place] [phone] Client Representative: Christian Muir MD Bilirubin, SemiQt,Ur Negative Normal NEG [facility] Comment on above: Performed By: #### U AMIC #### [facility] [address] [place], [place] [phone] Client Representative: Christian Muir MD Blood, Urine 2+ Abnormal NEG [facility] Comment on above: Performed By: #### U AMIC #### [facility] [address] [place], [place] [phone] Client Representative: Christian Muir MD Clarity (U) Cloudy Abnormal CLEAR [facility] Comment on above: Performed By: #### U AMIC #### [facility] [address] [place], [place] [phone] Client Representative: Christian Muir MD Color (U) Yellow Normal YEL [facility] Comment on above: Performed By: #### U AMIC #### [facility] [address] [place], [place] [phone] Client Representative: Christian Muir MD Comment Normal [facility] Comment on above: Performed By: #### U AMIC #### [facility] [address] [place] [address] Client Representative: Christian Muir MD Epithelial cells LM Ql (Urine sed) 2 TO 5 Normal [facility] Comment on above: Performed By: #### U AMIC #### [facility] [address] [place], [place] [phone] Client Representative: Christian Muir MD Glucose Ql (U) Negative Normal NEG [facility] Comment on above: Performed By: #### U AMIC #### [facility] [address] [place], [place] [phone] Client Representative: Christian Muir MD Ketones Ql (U) Negative Normal NEG [facility] Comment on above: Performed By: #### U AMIC #### [facility] [address] [place] [address] Client Representative: Christian Muir MD Leukocyte esterase Test strip Ql (U) 3+ Abnormal NEG [facility] Comment on above: Performed By: #### U AMIC #### [facility] [address] [place], [place] [phone] Client Representative: Christian Muir MD Nitrite,Ur Negative Normal NEG [facility] Comment on above: Performed By: #### U AMIC #### [facility] [address] [place], [place] [phone] Client Representative: Christian Muir MD PH,Ur 6.5 Normal 5.0-8.0 [facility] Comment on above: Performed By: #### U AMIC #### [facility] [address] [place], [place] [phone] Client Representative: Christian Muir MD Protein Ql (U) TRACE Abnormal NEG [facility] Comment on above: Performed By: #### U AMIC #### [facility] [address] [place] [phone] Client Representative: Christian Muir MD Spec. [place],Ur 1.010 Normal 1.005-1.03 0 [facility] Comment on above: Performed By: #### U AMIC #### [facility] [address] [place] [address] Client Representative: Christian Muir MD Urine RBC's 10 TO 20 Normal 0-2 [facility] Comment on above: Performed By: #### U AMIC #### [facility] [address] [place] [phone] Client Representative: Christian Muir MD Urine WBC's 20 TO 50 Normal 0 [facility] Comment on above: Performed By: #### U AMIC #### [facility] [address] [place] [phone] Client Representative: Christian Muir MD Urobilinogen,Ur Normal Normal 0.0-1.0 [facility] Comment on above: Performed By: #### U AMIC #### [facility] [address] [place] [phone] Client Representative: Christian Muir MD IntraOperative Documentson 0 09-23-2023 Intra[employer] Documents [id number] Normal [facility] Result Letter Officeon 09-22 Result Letter Office (Inserted Image. Un able to display) September 23, 2023 MARY JANE RIOS [address] [place] [address] : 1945 Below is a summary of [...] if you wish to make an appointment. [facility] [facility] [phone] [facility] Alanine aminotransferase [En zymatic activity/volume] in Serum or PlasmaOrdered By: uNvia Sanchez on 09-19-2023 ALT [Catalytic activity/Vol] 12 U/L 7-52 [facility] Albumin [Mass/volume] in Ser um or Plasma by Bromocresol green (BCG) dye binding methoOrdered By: Nuvia Sanchez on 09-19-2023 Albumin BCG dye [Mass/Vol] 3.9 g/dL 3.5-5.7 [facility] Alkaline phosphatase [Enzyma tic activity/volume] in Serum or PlasmaOrdered By: Nuvia Sanchez on 09-19-2023 ALP [Catalytic activity/Vol] 59 U/L 34-104 [facility] Aspartate aminotransferase [ Enzymatic activity/volume] in Serum or PlasmaOrdered By: Nuvia Sanchez on 09-19-2023 AST [Catalytic activity/Vol] 13 U/L 13-39 [facility] Automated erythrocytes count in urine sediment (number/area)Ordered By: Nuvia Sanchez on 09-19-2023 RBC Auto (Urine sed) [#/Area] 0-1 [HPF] 0-4 [facility] Automated leukocytes count i n urine sediment (number/area)Ordered By: Nuvia Sanchez on 09-19-2023 WBC Auto (Urine sed) [#/Area] None seen [HPF] 0-4 [facility] Basophils Auto (Bld) [#/Vol] Ordered By: Nuvia Sanchez on 09-19-2023 Basophils (Bld) [#/Vol] 0.0 10*3/uL 0.0-0.2 [facility] Basophils/100 WBC Auto (Bld) Ordered By: Nuvia [facility] on 09-19-2023 Basophils/100 WBC (Bld) 0.3 % . [facility] Bilirubin Test strip Ql (U)O rdered By: Nuvia Sanchez on 09-19-2023 Bilirubin Ql (U) Negative Negative [facility] Bilirubin.total [Mass/volume ] in Serum or PlasmaOrdered By: Nuvia Sanchez on 09-19-2023 Bilirubin [Mass/Vol] 0.2 mg/dL 0.3-1.0 [facility] Calcium [Mass/volume] in Ser um or PlasmaOrdered By: Nuvia Sanchez on 09-19-2023 Calcium [Mass/Vol] 8.6 mg/dL 8.6-10.3 [facility] Carbon dioxide, total [Moles /volume] in Serum or PlasmaOrdered By: Nuvia Sanchez on 09-19-2023 CO2 [Moles/Vol] 24.3 mmol/L 21.0-31.0 [facility] Chloride [Moles/volume] in S liat or PlasmaOrdered By: Nuvia Sanchez on 09-19-2023 Chloride [Moles/Vol] 107 mmol/L 98-107 [facility] Color Auto (U)Ordered By: Rajani Patel on 09-19-2023 Color (U) Yellow Yellow [facility] Creatinine [Mass/volume] in Serum or PlasmaOrdered By: Nuvia Sanchez on 09-19-2023 Creatinine [Mass/Vol] 1.35 mg/dL 0.60-1.20 [facility] Eosinophils Auto (Bld) [#/Vo l]Ordered By: Nuvia Sanchez on 09-19-2023 Eosinophils (Bld) [#/Vol] 0.1 10*3/uL 0.0-0.45 [facility] Eosinophils/100 WBC Auto (Bl d)Ordered By: Nuvia Sanchez on 09-19-2023 Eosinophils/100 WBC (Bld) 0.8 % . [facility] Erythrocyte distribution wid th Auto (RBC) [Ratio]Ordered By: Nuvia Sanchez on 09-19-2023 Erythrocyte distribution width (RBC) [Ratio] 15.2 % 11.9-15.3 [facility] Erythrocyte sedimentation ra te by Photometric methodOrdered By: Nuvia Sanchez on 09-19-2023 ESR Photometric method (Bld) [Velocity] 15 mm/hr 0-29 [facility] Globulin Calc (S) [Mass/Vol] Ordered By: Nuvia Sanchez on 09-19-2023 Globulin (S) [Mass/Vol] 2.2 g/dL [facility] Glucose [Mass/volume] in Ser um or PlasmaOrdered By: Nuvia Sanchez on 09-19-2023 Glucose [Mass/Vol] 84 mg/dL 70-100 [facility] Comment on above: ADA recommended refe rence rangeRandom Glucose Reference Range is dependent on time and content of last meal. Glucose of more than 200 mg/dL in a nonstressed, ambulatory subject supports the diagnosis of Diabetes Mellitus. Hematocrit Auto (Bld) [Volum e fraction]Ordered By: Nuvia Sanchez on 09-19-2023 Hematocrit (Bld) [Volume fraction] 34.5 % 34.0-46.4 [facility] Hemoglobin [Mass/volume] in BloodOrdered By: Nuvia Sanchez on 09-19-2023 Hemoglobin (Bld) [Mass/Vol] 11.4 g/dL 11.8-15.4 [facility] Ketones Auto test strip (U) [Mass/Vol]Ordered By: Nuvia Sanchez on 09-19-2023 Ketones (U) [Mass/Vol] Negative Negative [facility] Laboratory - UrinalysisOrder ed By: Nuvia Sanchez on 09-19-2023 Hyaline casts LM Ql (Urine sed) 0-8 [LPF] 0-8 [facility] Leukocytes [#/volume] correc pepito for nucleated erythrocytes in Blood by Automated counOrdered By: Nuvia Sanchez on 09-19-2023 WBC corrected for nucl RBC Auto (Bld) [#/Vol] 8.9 10*3/uL 3.8-11.6 [facility] Lymphocytes Auto (Bld) [#/Vo l]Ordered By: Nuvia Sanchez on 09-19-2023 Lymphocytes (Bld) [#/Vol] 1.6 10*3/uL 1.00-4.8 [facility] Lymphocytes/100 WBC Auto (Bl d)Ordered By: Nuvia Sanchez on 09-19-2023 Lymphocytes/100 WBC (Bld) 18.2 % . [facility] MCH Auto (RBC) [Entitic mass ]Ordered By: Nuvia Sanchez on 09-19-2023 MCH (RBC) [Entitic mass] 30.4 pg 24.7-34.3 [facility] MCHC Auto (RBC) [Mass/Vol]Or dered By: Nuvia Sanchez on 09-19-2023 MCHC (RBC) [Mass/Vol] 33.2 g/dL 32.0-35.0 [facility] MCV Auto (RBC) [Entitic vol] Ordered By: Nuvia Sanchez on 09-19-2023 MCV (RBC) [Entitic vol] 91.6 fL 80-100 [facility] Monocytes Auto (Bld) [#/Vol] Ordered By: Nuvia Sanchez on 09-19-2023 Monocytes (Bld) [#/Vol] 0.6 10*3/uL 0.0-0.8 [facility] Monocytes/100 WBC Auto (Bld) Ordered By: Nuvia Sanchez on 09-19-2023 Monocytes/100 WBC (Bld) 6.5 % . [facility] Neutrophils Auto (Bld) [#/Vo l]Ordered By: Nuvia Sanchez on 09-19-2023 Neutrophils (Bld) [#/Vol] 6.6 10*3/uL 1.8-7.7 [facility] Neutrophils/100 WBC Auto (Bl d)Ordered By: Nuvia Sanchez on 09-19-2023 Neutrophils/100 WBC (Bld) 74.2 % . [facility] Nitrite Test strip Ql (U)Ord ered By: Nuvia Sanchez on 09-19-2023 Nitrite Ql (U) Negative Negative [facility] No Panel InformationOrdered By: Nuvia Sanchez on 09-19-2023 Estimated GFR (CKD-EPI) 40.226 mL/Min [facility] Creatinine Clearance (Chem N/A [facility] Nucleated erythrocytes [Pres ence] in Blood by Automated countOrdered By: Nuvia Sanchez on 09-19-2023 Nucleated RBC Auto Ql (Bld) 0.1 /100{WBC} 0-0.5 [facility] Platelet mean volume Auto (B ld) [Entitic vol]Ordered By: Nuvia Sanchez on 09-19-2023 Platelet mean volume (Bld) [Entitic vol] 8.6 fL 6.3-10.7 [facility] Platelets Auto (Bld) [#/Vol] Ordered By: Nuvia Sanchez on 09-19-2023 Platelets (Bld) [#/Vol] 214 10*3/uL 150-450 [facility] Potassium [Moles/volume] in Serum or PlasmaOrdered By: Nuvia Sanchez on 09-19-2023 Potassium [Moles/Vol] 4.2 mmol/L 3.5-5.1 [facility] Protein Auto test strip (U) [Mass/Vol]Ordered By: Nuvia Sanchez on 09-19-2023 Protein (U) [Mass/Vol] Negative Negative [facility] Protein [Mass/volume] in Ser um or PlasmaOrdered By: Nuvia Sanchez on 09-19-2023 Protein [Mass/Vol] 6.1 g/dL 6.4-8.9 [facility] RBC Auto (Bld) [#/Vol]Ordere d By: Nuvia Sanchez on 09-19-2023 RBC (Bld) [#/Vol] 3.76 10*6/uL 3.60-5.00 [facility] Serum or plasma albumin/glob ulin mass ratioOrdered By: Nuvia Sanchez on 09-19-2023 Albumin/Globulin [Mass ratio] 1.8 {ratio} [facility] Serum or plasma anion gap de terminationOrdered By: Nuvia Sanchez on 09-19-2023 Anion gap [Moles/Vol] 9.9 mmol/L 6.0-15.0 [facility] Sodium [Moles/volume] in Ser um or PlasmaOrdered By: Nuvia Sanchez on 09-19-2023 Sodium [Moles/Vol] 137 mmol/L 136-145 [facility] Specific gravity Auto test s trip (U) [Rel density]Ordered By: Nuvia Sanchez on 09-19-2023 Specific gravity (U) [Rel density] 1.011 1.001-1.03 0 [facility] Squamous epithelial cells de tection in urine sediment by light microscopyOrdered By: Nuvia Sanchez on 09-19-2023 Epithelial cells.squamous LM Ql (Urine sed) None seen [HPF] 0-2 [facility] Urea nitrogen [Mass/volume] in Serum or PlasmaOrdered By: Nuvia Sanchez on 09-19-2023 Urea nitrogen [Mass/Vol] 32 mg/dL 7-25 [facility] Urine bacteria detection by automated methodOrdered By: Nuvia Sanchez on 09-19-2023 Bacteria Auto Ql (U) None seen None Seen [facility] Urine clarity by refractomet ry automatedOrdered By: Nuvia Sanchez on 09-19-2023 Clarity Refractometry automated (U) Clear Clear [facility] Urine glucose measurement by automated test strip (mass/volume)Ordered By: Nuvia Sanchez on 09-19-2023 Glucose Auto test strip (U) [Mass/Vol] Normal mg/dL Normal [facility] Urine hemoglobin detection b y automated test stripOrdered By: Nuvia Sanchez on 09-19-2023 Hemoglobin Auto test strip Ql (U) Negative Negative [facility] Urine leukocyte esterase det ection by automated test stripOrdered By: Nuvia Sanchez on 09-19-2023 Leukocyte esterase Auto test strip Ql (U) Negative Negative [facility] Urobilinogen Auto test strip (U) [Mass/Vol]Ordered By: Nuvia Sanchez on 09-19-2023 Urobilinogen (U) [Mass/Vol] Normal mg/dL Normal [facility] WBC Auto (Bld) [#/Vol]Ordere d By: Nuvia Sanchez on 09-19-2023 WBC (Bld) [#/Vol] 8.9 10*3/uL 3.8-11.6 [facility] pH Auto test strip (U)Ordere d By: Nuvia Sanchez on 09-19-2023 pH (U) 6.0 [pH] 5.0-9.0 [facility] Consenton 09-17-2023 Consent [id number]#[id number] Normal [facility] Discharge Instructionson Discharge Instructions [id number]#[id number] Normal [facility] Main OR Intraoperative Recor don 09-17-2023 Main OR Intraoperative Record IntraOp Document Type FT Summary Primary Physician: Davion Olivares MD Finalized Date/Time: 09/17/23 08:19:33 Pt. Name: BLANCAMARY JANEO.B./Sex: 1945 Female Med Rec #: [id number] Physician: Davion Olivares MD Financial #: [id number] Pt. 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 Yes Last Modified By: Janell Beaver RN 09/16/23 14:23:55 Post-Care Text: The patient is free from signs and symptoms of injury caused by extraneous objects Patient Positioning FT Pre-Care Text: Identifies physical alterations that require additional precautions for procedure-specific positioning, verifies presence of prosthe (more content not included)... [facility] Postoperative Documentson Postoperative Documents [id number]#[id number] [facility] Consent for Treatmenton 08-29 Consent for Treatment [id number]#1.00TIFF [facility] Discharge Instructionson Discharge Instructions MARY [...] tablet) fluticasone nasal (fluticasone 0.05 mg/inh Nasal [place]) levothyroxine (levothyroxine 50 mcg (0.05 mg) Tab) [...] follow up Where: [facility] [place], [address] [address] [phone] Business (1) Medications What How Much When Instructions Next Dose Changed famotidine 20 Milligram By Mouth Once a day (at bedtime) Changed famotidine (famotidine 40 mg Tab) 1 Tablets By Mouth Once a day (at bedtime) Pickup at [id number] Unchanged alprazolam 0.5 Milligram By Mouth At [...] fluticasone nasal (fluticasone 0.05 mg/ inh Nasal [place]) 50 Microgram Nasal Inhalation Every day Unchanged [...] Pharmacy Information (more content not included)... Normal [facility] Comment on above: Result Comment: Elec tronically [...] Education and Follow-up: Counseled: Patient, Family. Normal [facility] Comment on above: Result Comment: Elec tronically Signed By: Marshall STEINER, Davion Zarate\.br\Date and Time Signed: 09/16/23 14:42 EDT Other Comment: Rachel ng Attachment - attachment storage system not supported [id number] Can be viewed in source system Missing Attachment - attachment storage system not supported [id number] Can be viewed in source system Missing Attachment - attachment storage system not supported [id number] Can be viewed in source system Missing Attachment - attachment storage system not supported [id number] Can be viewed in source system Missing Attachment - attachment storage system not supported [id number] Can be viewed in source system Missing Attachment - attachment storage system not supported [id number] Can be viewed in source system Missing Attachment - attachment storage system not supported [id number] Can be viewed in source system Missing Attachment - attachment storage system not supported [id number] Can be viewed in source system Missing Attachment - attachment storage system not supported 5122459 Can be viewed in source system Missing Attachment - attachment storage system not supported 2883955 Can be viewed in source system Missing Attachment - attachment storage system not supported 5695137 Can be viewed in source system Missing Attachment - attachment storage system not supported [id number] Can be viewed in source system Gastroenterology [...] Historical Co (more content not included)... Normal [facility] Comment on above: Result Comment: Elec tronically Signed By: Davion Olivares MD\.br\Date and Time Signed: 09/16/23 14:16 EDT Inpatient Patient Summaryon 09-16-2023 Inpatient Patient Summary [address] [address] [facility] Clinical Discharge Instructions PERSON INFORMATION Name: MARY JANE RIOS [facility]YSICIANS Admitting Physician: Davion Olivares MD Attending Physician: Davion Olivares MD PCP: NABILA STEINER, RONI Ortiz Discharge Diagnosis: Colon polyps Comment: PATIENT EDUCATION INFORMATION Instructions: Medication Leaflets: Follow up: MEDICATION LIST Medications to Continue Taking That Have Changed [id number], [address], [place] [id number], [phone] START: famotidine (famotidine 40 mg Tab) 1 [...] day. fluticasone nasal (fluticasone 0.05 mg/inh Nasal [place]) 50 Microgram Nasal Inhalation every day. levothyroxine [...] Milligram By Mouth every day. Comment: Home [facility] Main OR PACU I Recordon 08-29 Main OR PACU I Record PACU Phase I Docum ent Type FT Summary Primary Physician: Davion Olivares MD Finalized Date/Time: 09/16/23 16:43:13 Pt. Name: MARY JANE RIOS /Sex: 1945 Female Med Rec #: [id number] Physician: Davion Olivares MD Financial #: [id number] Pt. Type: O Room/Bed: / Admit/Disch: 09/16/23 [...] By: Miley Zhou RN 09/16/23 16:43 Normal [facility] Main OR Preoperative Recordo n 09-16-2023 Main OR Preoperative Record Holding Area Document Type FT Summary Primary Physician: Davion Olivares MD Finalized Date/Time: 09/16/23 13:10:36 Pt. Name: BLANCAMARY JANE/Sex: 1945 Female Med Rec #: [id number] Physician: Davion Olivares MD Financial #: [id number] Pt. Type: O Room/Bed: / Admit/Disch: 09/16/23 [...] By: Eliza Lyn RN 09/16/23 13:10 Normal [facility] Monitor Recordon 09-16-2023 Monitor Record [id number]#[id number] Normal [facility] Monitor Record [id number] Normal [facility] Outpatient Surgery Discharge Instructionon 09-16-2023 Outpatient Surgery Discharge Instruction [place] [id number] Patient Discharge Instructions PERSON INFORMATION Name: MARY [...] to serve you. Thank you for choosing [facility] HERE ARE THE MEDICATION CHANGES THAT OCCURRED DURING YOUR HOSPITAL STAY Medications to Continue Taking That Have Changed [id number], [address], [place] [phone], [phone] START: famotidine (famotidine 40 mg Tab) 1 [...] day. fluticasone nasal (fluticasone 0.05 mg/inh Nasal [place]) 50 Microgram Nasal Inhalation every day. levothyroxine [...] day. PATIENT EDUCATION INFORMATION Instructions: Medication Leaflets: [facility] Patient Education - Texton 0 09-16-2023 Patient Education - Text [facility] Progress Note-Physicianon Progress Note-Physician Patient: [...] 90 tab(s), Refills(s) 6, Pharmacy: [facility] #[id number], 162, cm, 09/16/23 10:47:00 EDT, Height/Length Dosing, [...] of stomach acid fluticasone 0.05 mg/inh Nasal [place]: 50 mcg, Nasal, Daily, Refill(s) 0, Allergy [...] day (at bedtime) fluticasone 0.05 mg/inh Nasal [place] 50 mcg, Nasal, Daily levothyroxine 50 mcg [...] All Problems Acid reflux / SNOMED CT 153982581 / Confirmed Anticoagulated / SNOMED CT 441366412 / Confirmed Asymptomatic microscopic hematuria / SNOMED CT 9468807311 / Confirmed Chronic back pain / SNOMED CT 583768583 / Confirmed Epigastric pain / SNOMED CT 594779928 / Confirmed H/O: arthritis / SNOMED CT 803034072 / Confirmed History of colon polyps / SNOMED CT 1980340669 / Confirmed Hypercholesterolemia / SNOMED CT 31450654 / Confirmed Hypothyroidism / SNOMED CT 58695797 / Confirmed Internal hemorrhoids / SNOMED CT 192355636 / Confirmed Intestinal metaplasia of stomach / SNOMED CT 579551746 / Confirmed Low vitamin B12 level / SNOMED CT 3799629855 / Confirmed Mixed incontinence / SNOMED CT 61688696 / Confirmed Mixed stress and urge urinary incontinence / SNOMED CT 0058247601 / Confirmed Nocturia / SNOMED CT 841092391 / Confirmed Obesity / ICD-9-CM 278.00 / Possible Shoulder strain / SNOMED CT 610178413 / Confirmed Sleep apnea / SNOMED CT 290787983 / Confirmed USES CPAP Stress incontinence / SNOMED CT 425071364 / Confirmed TMJ (temporomandibular joint disorder) / SNOMED CT 15216237 / Confirmed Urge incontinence / SNOMED CT 774484566 / Confirmed Weak urinary stream / SNOMED CT 124086181 / Confirmed Resolved: Constipation / SNOMED CT 00568695 Resolved: Diverticulosis / SNOMED CT 9271247233 Resolved: Frequency of urination / SNOMED CT 742673957 Resolved: Gastritis / SNOMED CT 5571484 Resolved: Hx of post-iza (more content not included)... Normal [facility] Comment on above: Result Comment: Elec tronically [...] of stomach acid fluticasone 0.05 mg/inh Nasal [place]: 50 mcg, Nasal, Daily, Refill(s) 0, Allergy [...] day (at bedtime) fluticasone 0.05 mg/inh Nasal [place] 50 mcg, Nasal, Daily levothyroxine 50 mcg [...] All Problems Acid reflux / SNOMED CT 222015919 / Confirmed Anticoagulated / SNOMED CT 002607125 / Confirmed Asymptomatic microscopic hematuria / SNOMED CT 0770199127 / Confirmed Chronic back pain / SNOMED CT 399202056 / Confirmed Epigastric pain / SNOMED CT 749312100 / Confirmed H/O: arthritis / SNOMED CT 222424495 / Confirmed History of colon polyps / SNOMED CT 6929363674 / Confirmed Hypercholesterolemia / SNOMED CT 16061667 / Confirmed Hypothyroidism / SNOMED CT 73727344 / Confirmed Internal hemorrhoids / SNOMED CT 050912967 / Confirmed Intestinal metaplasia of stomach / SNOMED CT 982378931 / Confirmed Low vitamin B12 level / SNOMED CT 1799690172 / Confirmed Mixed incontinence / SNOMED CT 01900711 / Confirmed Mixed stress and urge urinary incontinence / SNOMED CT 4003289451 / Confirmed Nocturia / SNOMED CT 949665573 / Confirmed Obesity / ICD-9-CM 278.00 / Possible Shoulder strain / SNOMED CT 221847248 / Confirmed Sleep apnea / SNOMED CT 523626859 / Confirmed USES CPAP Stress incontinence / SNOMED CT 088757392 / Confirmed TMJ (temporomandibular joint disorder) / SNOMED CT 26685449 / Confirmed Urge incontinence / SNOMED CT 593075947 / Confirmed (more content not included)... Normal [facility] Comment on above: Result Comment: Elec tronically Signed By: Danny Anesthesiology (), Obie Tyler\.br\Date and Time Signed: 09/16/23 13:35 EDT COVID-19, Rapidon 07-01-2023 Interpretation and review of laboratory results Abnormal [facility] SARS-CoV-2 (COVID-19) RdRp gene JUAQUIN+probe Ql (Resp) Detected Abnormal Not Detected [facility] Comment on above: Rapid NAAT: The specimen [...] this assay. Fact sheet for Healthcare Providers: https://www.fda.gov/media/949954/download Fact sheet for Patients: https://www.fda.gov/media/650088/download Methodology: Isothermal Nucleic Acid Amplification Results reported to the appropriate Health Department Specimen Description .NASOPHARYNGEAL SWAB [facility] Rapid influenza A/B antigens on 07-01-2023 FLUAV Ag Ql (Unsp spec) Negative NEGATIVE [facility] Comment on above: for Influenza A Anti gen FLUBV Ag Ql (Unsp spec) Negative NEGATIVE [facility] Comment on above: for Influenza B Anti gen. [facility] Alanine aminotransferase [En zymatic activity/volume] in Serum or PlasmaOrdered By: Obie Hylton on 05-27-2023 ALT [Catalytic activity/Vol] 9 U/L [facility] Albumin [Mass/volume] in Ser um or Plasma by Bromocresol green (BCG) dye binding methoOrdered By: Obie Hylton on 05-27-2023 Albumin BCG dye [Mass/Vol] 3.9 g/dL 3.5-5.7 [facility] Alkaline phosphatase [Enzyma tic activity/volume] in Serum or PlasmaOrdered By: Obie Hylton on 05-27-2023 ALP [Catalytic activity/Vol] 51 U/L 34-104 [facility] Aspartate aminotransferase [ Enzymatic activity/volume] in Serum or PlasmaOrdered By: Obie Hylton on 05-27-2023 AST [Catalytic activity/Vol] 14 U/L 13-39 [facility] Automated erythrocytes count in urine sediment (number/area)Ordered By: Obie Hylton on 05-27-2023 RBC Auto (Urine sed) [#/Area] 0-1 [HPF] 0-4 [facility] Automated leukocytes count i n urine sediment (number/area)Ordered By: Obie Hylton on 05-27-2023 WBC Auto (Urine sed) [#/Area] 0-1 [HPF] 0-4 [facility] Basophils Auto (Bld) [#/Vol] Ordered By: Obie Hylton on 05-27-2023 Basophils (Bld) [#/Vol] 0.0 10*3/uL 0.0-0.2 [facility] Basophils/100 WBC Auto (Bld) Ordered By: Obie Hylton on 05-27-2023 Basophils/100 WBC (Bld) 0.4 % . [facility] Bilirubin Test strip Ql (U)O rdered By: Obie Hylton on 05-27-2023 Bilirubin Ql (U) Negative Negative [facility] Bilirubin.total [Mass/volume ] in Serum or PlasmaOrdered By: Obie Hylton on 05-27-2023 Bilirubin [Mass/Vol] 0.5 mg/dL 0.3-1.0 [facility] Calcium [Mass/volume] in Ser um or PlasmaOrdered By: Obie Hylton on 05-27-2023 Calcium [Mass/Vol] 8.9 mg/dL 8.6-10.3 [facility] Carbon dioxide, total [Moles /volume] in Serum or PlasmaOrdered By: Obie Hylton on 05-27-2023 CO2 [Moles/Vol] 27.0 mmol/L 21.0-31.0 [facility] Chloride [Moles/volume] in S liat or PlasmaOrdered By: Obie Hylton on 05-27-2023 Chloride [Moles/Vol] 112 mmol/L 98-107 [facility] Color Auto (U)Ordered By: Cindy ttrohiniclovis Hylton on 05-27-2023 Color (U) Yellow Yellow [facility] Creatinine [Mass/volume] in Serum or PlasmaOrdered By: Obie Hylton on 05-27-2023 Creatinine [Mass/Vol] 1.20 mg/dL 0.60-1.20 [facility] Eosinophils Auto (Bld) [#/Vo l]Ordered By: Obie Hylton on 05-27-2023 Eosinophils (Bld) [#/Vol] 0.1 10*3/uL 0.0-0.45 [facility] Eosinophils/100 WBC Auto (Bl d)Ordered By: Obie Hylton on 05-27-2023 Eosinophils/100 WBC (Bld) 2.0 % . [facility] Erythrocyte distribution wid th Auto (RBC) [Ratio]Ordered By: Obie Hylton on 05-27-2023 Erythrocyte distribution width (RBC) [Ratio] 14.9 % 11.9-15.3 [facility] Erythrocyte sedimentation ra te by Photometric methodOrdered By: Obie Hylton on 05-27-2023 ESR Photometric method (Bld) [Velocity] 17 mm/hr 0-29 [facility] Globulin Calc (S) [Mass/Vol] Ordered By: Obie Hylton on 05-27-2023 Globulin (S) [Mass/Vol] 2.1 g/dL [facility] Glucose [Mass/volume] in Ser um or PlasmaOrdered By: Obie Hylton on 05-27-2023 Glucose [Mass/Vol] 91 mg/dL 70-100 [facility] Comment on above: ADA recommended refe rence rangeRandom Glucose Reference Range is dependent on time and content of last meal. Glucose of more than 200 mg/dL in a nonstressed, ambulatory subject supports the diagnosis of Diabetes Mellitus. Hematocrit Auto (Bld) [Volum e fraction]Ordered By: Obie Hylton on 05-27-2023 Hematocrit (Bld) [Volume fraction] 34.4 % 34.0-46.4 [facility] Hemoglobin [Mass/volume] in BloodOrdered By: Obie Hylton on 05-27-2023 Hemoglobin (Bld) [Mass/Vol] 11.7 g/dL 11.8-15.4 [facility] Ketones Auto test strip (U) [Mass/Vol]Ordered By: Obie Hylton on 05-27-2023 Ketones (U) [Mass/Vol] Negative Negative [facility] Laboratory - UrinalysisOrder ed By: Obie Hylton on 05-27-2023 Hyaline casts LM Ql (Urine sed) 0-8 [LPF] 0-8 [facility] Leukocytes [#/volume] correc pepito for nucleated erythrocytes in Blood by Automated counOrdered By: Obie Hylton on 05-27-2023 WBC corrected for nucl RBC Auto (Bld) [#/Vol] 3.9 10*3/uL 3.8-11.6 [facility] Lymphocytes Auto (Bld) [#/Vo l]Ordered By: Obie Hylton on 05-27-2023 Lymphocytes (Bld) [#/Vol] 1.1 10*3/uL 1.00-4.8 [facility] Lymphocytes/100 WBC Auto (Bl d)Ordered By: Obie Hylton on 05-27-2023 Lymphocytes/100 WBC (Bld) 27.3 % . [facility] MCH Auto (RBC) [Entitic mass ]Ordered By: Obie Hylton on 05-27-2023 MCH (RBC) [Entitic mass] 31.7 pg 24.7-34.3 [facility] MCHC Auto (RBC) [Mass/Vol]Or dered By: Obie Hylton on 05-27-2023 MCHC (RBC) [Mass/Vol] 33.9 g/dL 32.0-35.0 [facility] MCV Auto (RBC) [Entitic vol] Ordered By: Obie Hylton on 05-27-2023 MCV (RBC) [Entitic vol] 93.4 fL 80-100 [facility] Monocytes Auto (Bld) [#/Vol] Ordered By: Obie Hylton on 05-27-2023 Monocytes (Bld) [#/Vol] 0.3 10*3/uL 0.0-0.8 [facility] Monocytes/100 WBC Auto (Bld) Ordered By: Obie Hylton on 05-27-2023 Monocytes/100 WBC (Bld) 8.4 % . [facility] Neutrophils Auto (Bld) [#/Vo l]Ordered By: Obie Hylton on 05-27-2023 Neutrophils (Bld) [#/Vol] 2.4 10*3/uL 1.8-7.7 [facility] Neutrophils/100 WBC Auto (Bl d)Ordered By: Obie Hylton on 05-27-2023 Neutrophils/100 WBC (Bld) 61.9 % . [facility] Nitrite Test strip Ql (U)Ord ered By: Obie Hylton on 05-27-2023 Nitrite Ql (U) Negative Negative [facility] No Panel InformationOrdered By: Obie Hylton on 05-27-2023 Estimated GFR (CKD-EPI) 46.333 mL/Min [facility] Creatinine Clearance (Chem N/A [facility] Nucleated erythrocytes [Pres ence] in Blood by Automated countOrdered By: Obie Hylton on 05-27-2023 Nucleated RBC Auto Ql (Bld) 0.2 /100{WBC} 0-0.5 [facility] Platelet mean volume Auto (B ld) [Entitic vol]Ordered By: Obie Hylton on 05-27-2023 Platelet mean volume (Bld) [Entitic vol] 8.8 fL 6.3-10.7 [facility] Platelets Auto (Bld) [#/Vol] Ordered By: Obie Hylton on 05-27-2023 Platelets (Bld) [#/Vol] 193 10*3/uL 150-450 [facility] Potassium [Moles/volume] in Serum or PlasmaOrdered By: Obie Hylton on 05-27-2023 Potassium [Moles/Vol] 4.4 mmol/L 3.5-5.1 [facility] Protein Auto test strip (U) [Mass/Vol]Ordered By: Obie Hylton on 05-27-2023 Protein (U) [Mass/Vol] Negative Negative [facility] Protein [Mass/volume] in Ser um or PlasmaOrdered By: Obie Hylton on 05-27-2023 Protein [Mass/Vol] 6.0 g/dL 6.4-8.9 [facility] RBC Auto (Bld) [#/Vol]Ordere d By: Obie Hylton on 05-27-2023 RBC (Bld) [#/Vol] 3.68 10*6/uL 3.60-5.00 [facility] Serum or plasma albumin/glob ulin mass ratioOrdered By: Obie Hylton on 05-27-2023 Albumin/Globulin [Mass ratio] 1.9 {ratio} [facility] Serum or plasma anion gap de terminationOrdered By: Obie Hylton on 05-27-2023 Anion gap [Moles/Vol] 8.4 mmol/L 6.0-15.0 [facility] Sodium [Moles/volume] in Ser um or PlasmaOrdered By: Obie Hylton on 05-27-2023 Sodium [Moles/Vol] 143 mmol/L 136-145 [facility] Specific gravity Auto test s trip (U) [Rel density]Ordered By: Obie Hylton on 05-27-2023 Specific gravity (U) [Rel density] 1.017 1.001-1.03 0 [facility] Squamous epithelial cells de tection in urine sediment by light microscopyOrdered By: Obie Hylton on 05-27-2023 Epithelial cells.squamous LM Ql (Urine sed) 1-2 [HPF] 0-2 [facility] Urea nitrogen [Mass/volume] in Serum or PlasmaOrdered By: Obie Hylton on 05-27-2023 Urea nitrogen [Mass/Vol] 25 mg/dL 7-25 [facility] Urine bacteria detection by automated methodOrdered By: Obie Hylton on 05-27-2023 Bacteria Auto Ql (U) None seen None Seen [facility] Urine clarity by refractomet ry automatedOrdered By: Obie Hylton on 05-27-2023 Clarity Refractometry automated (U) Cloudy Clear [facility] Urine glucose measurement by automated test strip (mass/volume)Ordered By: Obie Hylton on 05-27-2023 Glucose Auto test strip (U) [Mass/Vol] Normal mg/dL Normal [facility] Urine hemoglobin detection b y automated test stripOrdered By: Obie Hylton on 05-27-2023 Hemoglobin Auto test strip Ql (U) Trace Negative [facility] Urine leukocyte esterase det ection by automated test stripOrdered By: Obie Hylton on 05-27-2023 Leukocyte esterase Auto test strip Ql (U) Negative Negative [facility] Urobilinogen Auto test strip (U) [Mass/Vol]Ordered By: Obie Hylton on 05-27-2023 Urobilinogen (U) [Mass/Vol] Normal mg/dL Normal [facility] WBC Auto (Bld) [#/Vol]Ordere d By: Obie Hylton on 05-27-2023 WBC (Bld) [#/Vol] 3.9 10*3/uL 3.8-11.6 [facility] pH Auto test strip (U)Ordere d By: Obie Hylton on 05-27-2023 pH (U) 5.5 [pH] 5.0-9.0 [facility] Follow-Upon 04-11-2023 Follow-Up [id number] Genny Rios 1945 F Date Provider Department Center 04/11/2023 [id number], XU NWO [facility] No family history on file Level of Service:21831 [place] OFFICE/OUTPATIENT ESTABLISHED LOW MDM 20-29 MIN Normal [facility] Office Visiton 03-28-2023 Follow-up visit [id number] Genny Rios 1945 F Date Provider Department Center 03/28/2023 [id number], XU NWO [facility] No family history on file Level of Service:[address]48 [place] OFFICE/OUTPATIENT NEW MODERATE MDM 45-59 MINUTES Normal [facility] US RENAL LIMITEDon 3 Simple bilateral agus al cysts with otherwise unremarkable exam [facility] RIS CONSOLIDATED EXAMINATION: ULTRASOUND OF THE KIDNEYS 03/13/2023 10:12 am COMPARISON: None. HISTORY: ORDERING SYSTEM PROVIDED HISTORY: Renal cyst TECHNOLOGIST PROVIDED HISTORY: This procedure can be scheduled via [employer]. Access your [employer] account by visiting [employer]. FINDINGS: The right kidney measures 11.7 cm in length and the left kidney measures 11.3 cm in length. Normal renal cortical echogenicity. No hydronephrosis or nephrolithiasis. Simple right renal cyst 5 cm. Simple left renal cyst 5.2 cm. [facility] RIS CONSOLIDATED Jonny Lopez, DO - 03/13/2023 EXAMINATION: ULTRASOUND OF THE KIDNEYS 03/13/2023 10:12 am COMPARISON: None. HISTORY: ORDERING SYSTEM PROVIDED HISTORY: Renal cyst TECHNOLOGIST PROVIDED HISTORY: This procedure can be scheduled via [employer]. Access your [employer] account by visiting [employer]. FINDINGS: The right kidney measures 11.7 cm in length and the left kidney measures 11.3 cm in length. Normal renal cortical echogenicity. No hydronephrosis or nephrolithiasis. Simple right renal cyst 5 cm. Simple left renal cyst 5.2 cm. IMPRESSION: Simple bilateral renal cysts with otherwise unremarkable exam [employer] [facility] Study observation (narrative) [employer] US RENAL LIMITEDOrdered By: Jonny Lopez on 03-13-2023 [employer] Work Phone: Consent for Procedure/Surger yon 03-01-2023 Consent for Procedure/Surgery [id number] Normal [facility] Ambulatory Visit Summaryon 0 02-28-2023 Ambulatory Visit [...] tablet) fluticasone nasal (fluticasone 0.05 mg/inh Nasal [place]) levothyroxine (levothyroxine 50 mcg (0.05 mg) Tab) [...] fluticasone nasal (fluticasone 0.05 mg/ inh Nasal [place]) 50 Microgram Nasal Inhalation Every day Unchanged [...] Nocturia Sl (more content not included)... Normal [facility] CBC with Auto Differentialon 11-25-2022 Basophils (Bld) [#/Vol] 0.00 10*3/uL [facility] Basophils/100 WBC (Bld) 0 % 0 - 2 % [facility] Differential Type YES [facility] Eosinophils (Bld) [#/Vol] 0.10 10*3/uL [facility] Eosinophils/100 WBC (Bld) 2 % 0 - 5 % [facility] Erythrocyte distribution width (RBC) [Ratio] 14.0 % 12.1 - 15.2 % [facility] Hematocrit (Bld) [Volume fraction] 35.6 % Low 36 - 46 % [facility] Hemoglobin (Bld) [Mass/Vol] 12.0 g/dL 12.0 - 16.0 g/dL [facility]9facts [facility] Interpretation and review of laboratory results Abnormal [facility] Lymphocytes/100 WBC (Bld) 27 % 15 - 40 % [facility] Lymphocytes/100 WBC (Bld) 1.30 % [facility] MCH (RBC) [Entitic mass] 31.0 pg 26 - 34 pg [facility] MCHC (RBC) [Mass/Vol] 33.8 g/dL 31 - 3 7 g/dL [facility] MCV (RBC) [Entitic vol] 91.6 fL 80 - 100 fL [facility] Monocytes/100 WBC (Bld) 9 % High 4 - 8 % [facility] Monocytes/100 WBC (Bld) 0.50 % [facility] Neutrophils/100 WBC (Bld) 62 % 47 - 75 % [facility] Platelets (Bld) [#/Vol] 240 10*3/uL [facility] RBC (Bld) [#/Vol] 3.89 10*6/uL Low 4.0 - 5.2 m/uL [facility] Segmented neutrophils/100 WBC (Bld) 3.10 % [facility] WBC other (Bld) [#/Vol] 5.0 [facility] Comprehensive Metabolic Pane trevor 11-25-2022 Albumin [Mass/Vol] 3.7 g/dL 3.5 - 5.2 g/dL [facility] ALP [Catalytic activity/Vol] 70 U/L 35 - 104 U/L [facility] ALT [Catalytic activity/Vol] 6 U/L 5 - 33 U/L [facility] Anion gap [Moles/Vol] 10 mmol/L 9 - 17 mmol/L [facility] AST [Catalytic activity/Vol] 15 U/L NINF - 32 U/L [facility] Bilirubin [Mass/Vol] 0.3 mg/dL 0.3 - 1 .2 mg/dL [facility] Calcium [Mass/Vol] 9.4 mg/dL 8.6 - 10. 4 mg/dL [facility] Chloride [Moles/Vol] 105 mmol/L 98 - 10 7 mmol/L [facility] CO2 [Moles/Vol] 24 mmol/L 20 - 31 mmol/L [facility] Creatinine [Mass/Vol] 1.12 mg/dL High 0.50 - 0.90 mg/dL [facility] GFR/1.73 sq M.predicted MDRD (S/P/Bld) [Vol rate/Area] 51 mL/min/{1.73_m2} Low - [place] [facility] Comment on above: These results are [...] [Mass/Vol] 97 mg/dL 70 - 99 mg/dL [facility] Interpretation and review of laboratory results Abnormal [facility] Potassium [Moles/Vol] 4.1 mmol/L 3.7 - 5.3 mmol/L [facility] Protein [Mass/Vol] 6.7 g/dL 6.4 - 8.3 g/dL [facility] Sodium [Moles/Vol] 139 mmol/L 135 - 144 mmol/L [facility] Urea nitrogen [Mass/Vol] 32 mg/dL High 8 - 23 mg/dL [facility] Urea nitrogen/Creatinine [Mass ratio] 29 mg/mg High 9 - 20 [facility] Microscopic Urinalysison - [facility] Epithelial cells LM.HPF (Urine sed) [#/Area] 0 TO 2 /HPF [facility] RBC LM.HPF (Urine sed) [#/Area] 0 TO 2 [facility] WBC LM.HPF (Urine sed) [#/Area] NONE SEEN 0 /HPF [facility] Urinalysison 11-25-2022 Bilirubin Ql (U) Negative NEGATIVE [facility] Clarity (U) Clear Clear [facility] Color (U) Yellow Yellow [facility] Glucose Test strip (U) [Mass/Vol] Negative NEGATIVE [facility] Hemoglobin Auto test strip Ql (U) TRACE Abnormal NEGATIVE [facility] Interpretation and review of laboratory results Abnormal [facility] Ketones (U) [Mass/Vol] Negative NEGATIVE [facility] Leukocyte esterase Test strip Ql (U) Negative NEGATIVE [facility] Nitrite Ql (U) Negative NEGATIVE [facility] pH (U) 6.5 [pH] 5.0 - 8.0 [facility] Protein (U) [Mass/Vol] TRACE Abnormal NEGATIVE [facility] Specific gravity (U) [Rel density] 1.015 1.005 - 1.030 [facility] Urinalysis Comments [facility] Urobilinogen Qn (U) Normal Normal [facility] XR CHEST (2 VW)on 11-25-2022 No acute cardiopulmonary findings. [facility] RIS CONSOLIDATED EXAM: XR CHEST (2 VW ) INDICATION: Reason for exam:->Recently treated for Pneumonia. COMPARISON: 11/17/2022 TECHNIQUE: Chest radiograph(s) as above FINDINGS: Lines/Tubes: None Lungs: No pneumothorax, pleural effusion, or consolidation. Cardiomediastinal silhouette: Normal in size. Bones/Soft Tissues: No acute osseous abnormality. Right upper quadrant surgical clips. [facility] CON[facility] Bello Zheng MD - 11/25/2022 EXAM: XR CHEST (2 VW) INDICATION: Reason for exam:->Recently treated for Pneumonia. COMPARISON: 11/17/2022 TECHNIQUE: Chest radiograph(s) as above FINDINGS: Lines/Tubes: None Lungs: No pneumothorax, pleural effusion, or consolidation. Cardiomediastinal silhouette: Normal in size. Bones/Soft Tissues: No acute osseous abnormality. Right upper quadrant surgical clips. IMPRESSION: No acute cardiopulmonary findings. [employer] Phone: Radiology Study observation (narrative) [employer] Phone: XR CHEST (2 VW)Ordered By: Dejan Zheng on 11-25-2022 [employer] Phone: XR CHEST (2 VW)on 08-29-2022 FINDINGS/IMPRESSION: 1. Normal sized heart. 2. Clear lungs. [facility] RIS CONSOLIDATED EXAM: XR CHEST (2 VW ) HISTORY: Reason for exam:->HTN. COMPARISON: Portable chest 03/31/2020. [facility] CON[facility] Ishmael Valentin Jr., MD - 08/29/2022 EXAM: XR CHEST (2 VW) HISTORY: Reason for exam:->HTN. COMPARISON: Portable chest 03/31/2020. IMPRESSION: FINDINGS/IMPRESSION: 1. Normal sized heart. 2. Clear lungs. [employer] Phone: Radiology Study observation (narrative) [employer] Phone: XR CHEST (2 VW)Ordered By: Jo Valentin on 08-29-2022 [employer] Phone: Aspartate aminotransferase [ Enzymatic activity/volume] in Serum or PlasmaOrdered By: Obie Hylton on 08-21-2022 AST [Catalytic activity/Vol] 16 U/L 10-42 [facility] Automated erythrocytes count in urine sediment (number/area)Ordered By: Obie Hylton on 08-21-2022 RBC Auto (Urine sed) [#/Area] 1-2 [HPF] 0-4 [facility] Automated leukocytes count i n urine sediment (number/area)Ordered By: Obie Hylton on 08-21-2022 WBC Auto (Urine sed) [#/Area] 5-9 [HPF] 0-4 [facility] Basophils Auto (Bld) [#/Vol] Ordered By: Obie Hylton on 08-21-2022 Basophils (Bld) [#/Vol] 0.0 10*3/uL 0.0-0.2 [facility] Basophils/100 WBC Auto (Bld) Ordered By: Obie Hylton on 08-21-2022 Basophils/100 WBC (Bld) 0.3 % . [facility] Bilirubin Test strip Ql (U)O rdered By: Obie Hylton on 08-21-2022 Bilirubin Ql (U) Negative Negative [facility] Body fluid albumin measureme nt (mass/volume)Ordered By: Obie Hylton on 08-21-2022 Albumin (Body fld) [Mass/Vol] 3.6 g/dL 3.2-5.5 [facility] Cholesterol [Mass/volume] in Serum or PlasmaOrdered By: Kenneth Givens on 08-21-2022 Cholesterol [Mass/Vol] 120 mg/dL 140-200 [facility] Comment on above: Chol less than 200 m g/dl low riskChol 201-239 mg/dl borderline riskChol 240 mg/dl and greater high risk Cholesterol in LDL Calc [Mas s/Vol]Ordered By: Kenneth Givens on 08-21-2022 Cholesterol in LDL [Mass/Vol] 59 mg/dL 0-100 [facility] Comment on above: LDL ATP III CLASSIFI CATIONLDL less than 100 mg/dL OptimalLDL 100-129 mg/dL Near or above optimalLDL 130-159 mg/dL Borderline highLDL 160-189 mg/dL HighLDL greater than 189 mg/dL Very high Cholesterol in VLDL Calc [Cindy ss/Vol]Ordered By: Kenneth Givens on 08-21-2022 Cholesterol in VLDL [Mass/Vol] 15 mg/dL [facility] Color Auto (U)Ordered By: Cindy candelariaclovis Warner on 08-21-2022 Color (U) Yellow Yellow [facility] Creatinine and Glomerular fi ltration rate.predicted panel (S/P/Bld)Ordered By: Obie Hytlon on 08-21-2022 Creatinine [Mass/Vol] 1.19 mg/dL 0.44-1.03 [facility] Eosinophils Auto (Bld) [#/Vo l]Ordered By: Obie Hylton on 08-21-2022 Eosinophils (Bld) [#/Vol] 0.1 10*3/uL 0.0-0.45 [facility] Eosinophils/100 WBC Auto (Bl d)Ordered By: Obie Hylton on 08-21-2022 Eosinophils/100 WBC (Bld) 1.2 % . [facility] Erythrocyte distribution wid th Auto (RBC) [Ratio]Ordered By: Obie Hylton on 08-21-2022 Erythrocyte distribution width (RBC) [Ratio] 14.5 % 11.9-15.3 [facility] Erythrocyte sedimentation ra te by Photometric methodOrdered By: Obie Hylton on 08-21-2022 ESR Photometric method (Bld) [Velocity] 9 mm/hr 0-29 [facility] Estimated glomerular filtrat ion rate (GFR) non- AmericanOrdered By: Obie Hylton on 08-21-2022 GFR/1.73 sq M.predicted among non-blacks MDRD (S/P/Bld) [Vol rate/Area] 44 mL/Min [facility] Globulin Calc (S) [Mass/Vol] Ordered By: Obie Hylton on 08-21-2022 Globulin (S) [Mass/Vol] 2.6 g/dL [facility] Hematocrit Auto (Bld) [Volum e fraction]Ordered By: Obie Hylton on 08-21-2022 Hematocrit (Bld) [Volume fraction] 35.6 % 34.0-46.4 [facility] Hemoglobin [Mass/volume] in BloodOrdered By: Obie Hylton on 08-21-2022 Hemoglobin (Bld) [Mass/Vol] 11.9 g/dL 11.8-15.4 [facility] Ketones Auto test strip (U) [Mass/Vol]Ordered By: Obie Hylton on 08-21-2022 Ketones (U) [Mass/Vol] Negative Negative [facility] Laboratory - Chemistry and C hemistry - challengeOrdered By: Kenneth Givens on 08-21-2022 Magnesium [Mass/Vol] 2.1 mg/dL 1.6-2.6 [facility] Laboratory - UrinalysisOrder ed By: Obie Hylton on 08-21-2022 Hyaline casts LM Ql (Urine sed) 0-8 [LPF] 0-8 [facility] Leukocytes [#/volume] correc pepito for nucleated erythrocytes in Blood by Automated counOrdered By: Obie Hylton on 08-21-2022 WBC corrected for nucl RBC Auto (Bld) [#/Vol] 4.7 10*3/uL 3.8-11.6 [facility] Lymphocytes Auto (Bld) [#/Vo l]Ordered By: Obie Hylton on 08-21-2022 Lymphocytes (Bld) [#/Vol] 1.0 10*3/uL 1.00-4.8 [facility] Lymphocytes/100 WBC Auto (Bl d)Ordered By: Obie Hylton on 08-21-2022 Lymphocytes/100 WBC (Bld) 21.8 % . [facility] MCH Auto (RBC) [Entitic mass ]Ordered By: Obie Hylton on 08-21-2022 MCH (RBC) [Entitic mass] 33.9 pg 24.7-34.3 [facility] MCHC Auto (RBC) [Mass/Vol]Or dered By: Obie Hylton on 08-21-2022 MCHC (RBC) [Mass/Vol] 33.5 g/dL 32.0-35.0 [facility] MCV Auto (RBC) [Entitic vol] Ordered By: Obie Hylton on 08-21-2022 MCV (RBC) [Entitic vol] 101.2 fL 80-100 [facility] Monocytes Auto (Bld) [#/Vol] Ordered By: Obie Hylton on 08-21-2022 Monocytes (Bld) [#/Vol] 0.4 10*3/uL 0.0-0.8 [facility] Monocytes/100 WBC Auto (Bld) Ordered By: Obie Hylton on 08-21-2022 Monocytes/100 WBC (Bld) 8.2 % . [facility] Neutrophils Auto (Bld) [#/Vo l]Ordered By: Obie Hylton on 08-21-2022 Neutrophils (Bld) [#/Vol] 3.2 10*3/uL 1.8-7.7 [facility] Neutrophils/100 WBC Auto (Bl d)Ordered By: Obie Hylton on 08-21-2022 Neutrophils/100 WBC (Bld) 68.5 % . [facility] Nitrite Test strip Ql (U)Ord ered By: Obie Hylton on 08-21-2022 Nitrite Ql (U) Negative Negative [facility] No Panel InformationOrdered By: Kenneth Givens on 08-21-2022 25-Hydroxy Vitamin D Total 43.9 ng/mL 30-100 [facility] Comment on above: VITAMIN D STATUS 25( [place])VITAMIN D RANGE (ng/mL) Deficient <20 Insufficient 20 to <30Sufficient 30 to 100Reference: Jennifer MF,Babs NC, Blank GALLARDO, et al. Evaluation,treatment, and prevention of vitamin D deficiency; an Endocrine Society clinical practice guideline. JCEM. 2010; 96(7):1911-30. No Panel InformationOrdered By: Obie Hylton on 08-21-2022 Estimated GFR () 53 mL/Min [facility] Comment on above: GFR estimated refere nce range: According to KDOQI guidelines, <60 ml/min/1.73m2 is sufficient to diagnose a patient with chronic kidney disease. Pharmacy Creatinine Clearance (Chem N/A [facility] Nucleated erythrocytes [Pres ence] in Blood by Automated countOrdered By: Obie Hylton on 08-21-2022 Nucleated RBC Auto Ql (Bld) 0.2 /100{WBC} 0-0.5 [facility] Platelet mean volume Auto (B ld) [Entitic vol]Ordered By: Obie Hylton on 08-21-2022 Platelet mean volume (Bld) [Entitic vol] 9.0 fL 6.3-10.7 [facility] Platelets Auto (Bld) [#/Vol] Ordered By: Obie Hylton on 08-21-2022 Platelets (Bld) [#/Vol] 188 10*3/uL 150-450 [facility] Protein Auto test strip (U) [Mass/Vol]Ordered By: Obie Hylton on 08-21-2022 Protein (U) [Mass/Vol] Negative Negative [facility] Protein [Mass/volume] in Ser um or PlasmaOrdered By: Obie Hylton on 08-21-2022 Protein [Mass/Vol] 6.2 g/dL 6.1-7.9 [facility] RBC Auto (Bld) [#/Vol]Ordere d By: Obie Hylton on 08-21-2022 RBC (Bld) [#/Vol] 3.52 10*6/uL 3.60-5.00 [facility] Serum or plasma alanine negro otransferase measurement without P-5'-P (enzymatic activiOrdered By: Obie Hylton on 08-21-2022 ALT No additional P-5'-P [Catalytic activity/Vol] 12 U/L 10-60 [facility] Serum or plasma albumin/glob ulin mass ratioOrdered By: Obie Hylton on 08-21-2022 Albumin/Globulin [Mass ratio] 1.4 {ratio} [facility] Serum or plasma alkaline glen sphatase measurement (enzymatic activity/volume)Ordered By: Obie Hylton on 08-21-2022 ALP [Catalytic activity/Vol] 58 U/L 32-92 [facility] Serum or plasma anion gap de terminationOrdered By: Obie Hylton on 08-21-2022 Anion gap [Moles/Vol] 13.5 mmol/L 6.0-15.0 [facility] Serum or plasma calcium olivia urement (mass/volume)Ordered By: Obie Hylton on 08-21-2022 Calcium [Mass/Vol] 9.1 mg/dL 8.2-10.2 [facility] Serum or plasma chloride wilner surement (moles/volume)Ordered By: Obie Hylton on 08-21-2022 Chloride [Moles/Vol] 105 mmol/L 95-114 [facility] Serum or plasma glucose olivia urement (mass/volume)Ordered By: Obie Hylton on 08-21-2022 Glucose [Mass/Vol] 91 mg/dL 70-100 [facility] Comment on above: ADA recommended refe rence rangeRandom Glucose Reference Range is dependent on time and content of last meal. Glucose of more than 200 mg/dL in a nonstressed, ambulatory subject supports the diagnosis of Diabetes Mellitus. Serum or plasma high density lipoprotein (HDL) cholesterol measurementOrdered By: Kenneth Givens on 08-21-2022 Cholesterol in HDL [Mass/Vol] 45 mg/dL 35-85 [facility] Comment on above: HDL CHOL ATP-III CLA SSIFICATION Cardiovascular RiskHDL > or equal to 60 mg/dL LOWHDL < 40 mg/dL HIGH Serum or plasma potassium me asurement (moles/volume)Ordered By: Obie Hylton on 08-21-2022 Potassium [Moles/Vol] 4.1 mmol/L 3.5-5.1 [facility] Serum or plasma sodium measu rement (moles/volume)Ordered By: Obie Hylton on 08-21-2022 Sodium [Moles/Vol] 138 mmol/L 136-146 [facility] Serum or plasma total biliru bin measurement (mass/volume)Ordered By: Obie Hylton on 08-21-2022 Bilirubin [Mass/Vol] 0.3 mg/dL 0.3-1.2 [facility] Serum or plasma total carbon dioxide measurement (moles/volume)Ordered By: Obie Hylton on 08-21-2022 CO2 [Moles/Vol] 23.6 mmol/L 22.0-30.0 [facility] Serum or plasma total choles terol/high density lipoprotein (HDL) cholesterol mass ratOrdered By: Kenneth Givens on 08-21-2022 Cholesterol.total/Cho lesterol in HDL [Mass ratio] 2.7 {ratio} <5.0 [facility] Serum or plasma urea nitroge n measurement (mass/volume)Ordered By: Obie Hylton on 08-21-2022 Urea nitrogen [Mass/Vol] 25 mg/dL 9-23 [facility] Specific gravity Auto test s trip (U) [Rel density]Ordered By: Obie Hylton on 08-21-2022 Specific gravity (U) [Rel density] 1.014 1.001-1.03 0 [facility] Squamous epithelial cells de tection in urine sediment by light microscopyOrdered By: Obie Hylton on 08-21-2022 Epithelial cells.squamous LM Ql (Urine sed) 5-9 [HPF] 0-2 [facility] TSH DL <= 0.005 mIU/L QnOrde red By: Kenneth Givens on 08-21-2022 TSH Qn 1.14 m[IU]/L 0.45-5.33 [facility] Triglyceride [Mass/volume] i n Serum or PlasmaOrdered By: Kenneth Givens on 08-21-2022 Triglyceride [Mass/Vol] 78 mg/dL 35-149 [facility] Comment on above: TRIG ATP III CLASSIF ICATIONTRIG less than 150 mg/dL NormalTRIG 150-199 mg/dL Borderline highTRIG 200-500 mg/dL High TRIG greater than 500 mg/dL Very highStandard traceable to the Center for Disease Conrtrol and Prevention (CDC) test method. Urine bacteria detection by automated methodOrdered By: Obie Hylton on 08-21-2022 Bacteria Auto Ql (U) None seen None Seen [facility] Urine clarity by refractomet ry automatedOrdered By: Obie Hylton on 08-21-2022 Clarity Refractometry automated (U) Clear Clear [facility] Urine glucose measurement by automated test strip (mass/volume)Ordered By: Obie Hylton on 08-21-2022 Glucose Auto test strip (U) [Mass/Vol] Normal mg/dL Normal [facility] Urine hemoglobin detection b y automated test stripOrdered By: Obie Hylton on 08-21-2022 Hemoglobin Auto test strip Ql (U) Trace Negative [facility] Urine leukocyte esterase det ection by automated test stripOrdered By: Obie Hylton on 08-21-2022 Leukocyte esterase Auto test strip Ql (U) 1+ Negative [facility] Urobilinogen Auto test strip (U) [Mass/Vol]Ordered By: Obie Hylton on 08-21-2022 Urobilinogen (U) [Mass/Vol] Normal mg/dL Normal [facility] WBC Auto (Bld) [#/Vol]Ordere d By: Obie Hylton on 08-21-2022 WBC (Bld) [#/Vol] 4.7 10*3/uL 3.8-11.6 [facility] pH Auto test strip (U)Ordere d By: Obie Hylton on 08-21-2022 pH (U) 7.0 [pH] 5.0-9.0 [facility] CHEMISTRYOrdered By: SYSTEM SYSTEM on 07-10-2022 [...] 4.4 mmol/L Normal 3.5 - 5.3 mmol/L [facility] Remisol Sodium [Moles/Vol] 140 mmol/L Normal 135 - 145 mmol/L [facility] Remisol Urea nitrogen [Mass/Vol] 37 mg/dL High 5 - 21 mg/dL [facility] Remisol Urea nitrogen/Creatinine [Mass ratio] 28 mg/mg High 10 - 20 [facility] Remisol Albumin [Mass/volume] in Ser um or PlasmaOrdered By: Obie Hylton on 02-22-2022 Albumin [Mass/Vol] 3.5 g/dL 3.2-5.5 [facility] Automated erythrocytes count in urine sediment (number/area)Ordered By: Obie Hylton on 02-22-2022 RBC Auto (Urine sed) [#/Area] 3-4 [HPF] 0-4 [facility] Automated leukocytes count i n urine sediment (number/area)Ordered By: Obie Hylton on 02-22-2022 WBC Auto (Urine sed) [#/Area] 1-2 [HPF] 0-4 [facility] Basophils Auto (Bld) [#/Vol] Ordered By: Obie Hylton on 02-22-2022 Basophils (Bld) [#/Vol] 0.0 10*3/uL 0.0-0.2 [facility] Basophils/100 WBC Auto (Bld) Ordered By: Obie Hylton on 02-22-2022 Basophils/100 WBC (Bld) 0.2 % . [facility] Bilirubin Test strip Ql (U)O rdered By: Obie Hylton on 02-22-2022 Bilirubin Ql (U) Negative Negative [facility] Blood hemoglobin measurement (mass/volume)Ordered By: Obie Hylton on 02-22-2022 Hemoglobin (Bld) [Mass/Vol] 12.3 g/dL 11.8-15.4 [facility] Blood leukocytes automated c ount (number/volume)Ordered By: Obie Hylton on 02-22-2022 WBC (Bld) [#/Vol] 5.1 10*3/uL 4.5-11.0 [facility] Color Auto (U)Ordered By: Cindy Hylton on 02-22-2022 Color (U) Yellow Yellow [facility] Creatinine and Glomerular fi ltration rate.predicted panel (S/P/Bld)Ordered By: Obie Hylton on 02-22-2022 Creatinine [Mass/Vol] 1.16 mg/dL 0.44-1.03 [facility] Eosinophils Auto (Bld) [#/Vo l]Ordered By: Obie Hylton on 02-22-2022 Eosinophils (Bld) [#/Vol] 0.1 10*3/uL 0.0-0.45 [facility] Eosinophils/100 WBC Auto (Bl d)Ordered By: Obie Hylton on 02-22-2022 Eosinophils/100 WBC (Bld) 1.4 % . [facility] Erythrocyte distribution wid th Auto (RBC) [Ratio]Ordered By: Obie Hylton on 02-22-2022 Erythrocyte distribution width (RBC) [Ratio] 15.3 % 11.9-15.3 [facility] Estimated glomerular filtrat ion rate (GFR) non- AmericanOrdered By: Obie Hylton on 02-22-2022 GFR/1.73 sq M.predicted among non-blacks MDRD (S/P/Bld) [Vol rate/Area] 45 mL/Min [facility] Globulin Calc (S) [Mass/Vol] Ordered By: Obie Hylton on 02-22-2022 Globulin (S) [Mass/Vol] 2.5 g/dL [facility] Hematocrit Auto (Bld) [Volum e fraction]Ordered By: Obie Hylton on 02-22-2022 Hematocrit (Bld) [Volume fraction] 36.6 % 34.0-46.4 [facility] Ketones Auto test strip (U) [Mass/Vol]Ordered By: Obie Hylton on 02-22-2022 Ketones (U) [Mass/Vol] Negative Negative [facility] Laboratory - Hematology and Cell countsOrdered By: Obie Hylton on 02-22-2022 Nucleated RBC/100 WBC (Bld) [Ratio] 0.0 % 0-0.5 [facility] Laboratory - UrinalysisOrder ed By: Obie Hylton on 02-22-2022 Hyaline casts LM Ql (Urine sed) None seen [LPF] 0-8 [facility] Lymphocytes Auto (Bld) [#/Vo l]Ordered By: Obie Hylton on 02-22-2022 Lymphocytes (Bld) [#/Vol] 1.1 10*3/uL 1.00-4.8 [facility] Lymphocytes/100 WBC Auto (Bl d)Ordered By: Obie Hylton on 02-22-2022 Lymphocytes/100 WBC (Bld) 22.2 % . [facility] MCH Auto (RBC) [Entitic mass ]Ordered By: Obie Hylton on 02-22-2022 MCH (RBC) [Entitic mass] 33.0 pg 24.7-34.3 [facility] MCHC Auto (RBC) [Mass/Vol]Or dered By: Obie Hylton on 02-22-2022 MCHC (RBC) [Mass/Vol] 33.5 g/dL 32.0-35.0 [facility] MCV Auto (RBC) [Entitic vol] Ordered By: Obie Hylton on 02-22-2022 MCV (RBC) [Entitic vol] 98.5 fL 80-100 [facility] Monocytes Auto (Bld) [#/Vol] Ordered By: Obie Hylton on 02-22-2022 Monocytes (Bld) [#/Vol] 0.5 10*3/uL 0.0-0.8 [facility] Monocytes/100 WBC Auto (Bld) Ordered By: Obie Hylton on 02-22-2022 Monocytes/100 WBC (Bld) 9.0 % . [facility] Neutrophils Auto (Bld) [#/Vo l]Ordered By: Obie Hylton on 02-22-2022 Neutrophils (Bld) [#/Vol] 3.5 10*3/uL 1.8-7.7 [facility] Neutrophils/100 WBC Auto (Bl d)Ordered By: Obie Hylton on 02-22-2022 Neutrophils/100 WBC (Bld) 67.2 % . [facility] Nitrite Test strip Ql (U)Ord ered By: Obie Hylton on 02-22-2022 Nitrite Ql (U) Negative Negative [facility] No Panel InformationOrdered By: Obie Hylton on 08-25-2022 Estimated GFR () 55 mL/Min [facility] Comment on above: GFR estimated refere nce range: According to KDOQI guidelines, <60 ml/min/1.73m2 is sufficient to diagnose a patient with chronic kidney disease. Pharmacy Creatinine Clearance (Chem N/A [facility] Platelet mean volume Auto (B ld) [Entitic vol]Ordered By: Obie Hylton on 02-22-2022 Platelet mean volume (Bld) [Entitic vol] 8.7 fL 6.3-10.7 [facility] Platelets Auto (Bld) [#/Vol] Ordered By: Obie Hylton on 02-22-2022 Platelets (Bld) [#/Vol] 182 10*3/uL 150-450 [facility] Protein Auto test strip (U) [Mass/Vol]Ordered By: Obie Hylton on 02-22-2022 Protein (U) [Mass/Vol] Negative Negative [facility] Protein [Mass/volume] in Ser um or PlasmaOrdered By: Obie Hylton on 02-22-2022 Protein [Mass/Vol] 6.0 g/dL 6.1-7.9 [facility] RBC Auto (Bld) [#/Vol]Ordere d By: Obie Hylton on 02-22-2022 RBC (Bld) [#/Vol] 3.72 10*6/uL 3.60-5.00 [facility] Serum or plasma alanine negro otransferase measurement without P-5'-P (enzymatic activiOrdered By: Obie Hylton on 02-22-2022 ALT No additional P-5'-P [Catalytic activity/Vol] 14 U/L 10-60 [facility] Serum or plasma albumin/glob ulin mass ratioOrdered By: Obie Hylton on 02-22-2022 Albumin/Globulin [Mass ratio] 1.4 {ratio} [facility] Serum or plasma alkaline glen sphatase measurement (enzymatic activity/volume)Ordered By: Obie Hylton on 02-22-2022 ALP [Catalytic activity/Vol] 54 U/L 32-92 [facility] Serum or plasma aspartate am inotransferase measurement (enzymatic activity/volume)Ordered By: Obie Hylton on 02-22-2022 AST [Catalytic activity/Vol] 17 U/L 10-42 [facility] Serum or plasma calcium olivia urement (mass/volume)Ordered By: Obie Hylton on 02-22-2022 Calcium [Mass/Vol] 9.0 mg/dL 8.2-10.2 [facility] Serum or plasma chloride wilner surement (moles/volume)Ordered By: Obie Hylton on 02-22-2022 Chloride [Moles/Vol] 107 mmol/L 95-114 [facility] Serum or plasma glucose olivia urement (mass/volume)Ordered By: Obie Hylton on 02-22-2022 Glucose [Mass/Vol] 90 mg/dL 70-100 [facility] Comment on above: ADA recommended refe [...] on 02-22-2022 Potassium [Moles/Vol] 4.2 mmol/L 3.5-5.1 [facility] Serum or plasma sodium measu rement (moles/volume)Ordered By: Obie Hylton on 02-22-2022 Sodium [Moles/Vol] 139 mmol/L 136-146 [facility] Serum or plasma total biliru bin measurement (mass/volume)Ordered By: Obie Hylton on 02-22-2022 Bilirubin [Mass/Vol] 0.5 mg/dL 0.3-1.2 [facility] Serum or plasma total carbon dioxide measurement (moles/volume)Ordered By: Obie Hylton on 02-22-2022 CO2 [Moles/Vol] 24.9 mmol/L 22.0-30.0 [facility] Serum or plasma urea nitroge n measurement (mass/volume)Ordered By: Obie Hylton on 02-22-2022 Urea nitrogen [Mass/Vol] 25 mg/dL 03-23 [facility] Specific gravity Auto test s trip (U) [Rel density]Ordered By: Obie Hylton on 02-22-2022 Specific gravity (U) [Rel density] 1.015 1.001-1.03 0 [facility] Squamous epithelial cells de tection in urine sediment by light microscopyOrdered By: Obie Hylton on 02-22-2022 Epithelial cells.squamous LM Ql (Urine sed) 0-1 [HPF] 0-2 [facility] Urine bacteria detection by automated methodOrdered By: Obie Hylton on 02-22-2022 Bacteria Auto Ql (U) None seen None Seen [facility] Urine clarity by refractomet ry automatedOrdered By: Obie Hylton on 02-22-2022 Clarity Refractometry automated (U) Clear Clear [facility] Urine glucose measurement by automated test strip (mass/volume)Ordered By: Obie Hylton on 02-22-2022 Glucose Auto test strip (U) [Mass/Vol] Normal mg/dL Normal [facility] Urine hemoglobin detection b y automated test stripOrdered By: Obie Hylton on 02-22-2022 Hemoglobin Auto test strip Ql (U) 1+ Negative [facility] Urine leukocyte esterase det ection by automated test stripOrdered By: Obie Hylton on 02-22-2022 Leukocyte esterase Auto test strip Ql (U) Negative Negative [facility] Urobilinogen Auto test strip (U) [Mass/Vol]Ordered By: Obie Hylton on 02-22-2022 Urobilinogen (U) [Mass/Vol] Normal mg/dL Normal [facility] pH Auto test strip (U)Ordere d By: Obie Hylton on 02-22-2022 pH (U) 6.0 [pH] 5.0-9.0 [facility] ANA WU DIGITAL SCREEN BILA TERALon 02-01-2022 BI-RADS 1 - Negative, no evidence of malignancy. Normal interval followup in 12 months. OVERALL ASSESSMENT- NEGATIVE A letter of notification will be sent to the patient regarding the results. [facility] RIS CONSOLIDATED HISTORY: Screening. Family history of breast carcinoma. TECHNIQUE: Bilateral digital screening mammogram with CAD. 2-D and 3-D tomography. FINDINGS: Two views of each breast show scattered areas of fibroglandular density. No change from prior studies, most recent 01/20/2021. Suspicious calcifications: None. Suspicious mass: None. (If skin markers were applied, circles represent skin lesions and linear markers represent scars.) [facility] WU DIGITAL SCREEN BILA TERALOrdered By: Ishmael Valentin on 02-01-2022 [employer] Phone: [facility] WU DIGITAL SCREEN BILA TERALon 01-31-2022 Radiology Study observation (narrative) [employer] Phone: XR SHOULDER RIGHT (MIN 2 VIE WS)on 12-02-2021 FINDINGS/IMPRESSION: 1. No significant change since 08/10/2021. 2. Mild AC joint osteoarthrosis remains, with small marginal osteophytes. 3. Osseous ridging from chronic rotator cuff tendinopathy and small reactive subcortical cysts or surgical drill tracks remain in the greater tuberosity of the humerus. 4. No fracture, malalignment, or other acute bony abnormality is seen. [facility] CON[facility] CLINICAL HISTORY: Hi story of right rotator cuff repair surgery (Z98.890). RIGHT SHOULDER 3 VIEWS: COMPARISON: 08/10/2021. [facility] Norm Mcdonnell MD - 12/02/2021 [...] or other acute bony abnormality is seen. [employer] Phone: XR SHOULDER RIGHT (MIN 2 VIE WS)Ordered By: Nrom Mcdonnell on 12-02-2021 [employer] Phone: XR SHOULDER RIGHT (MIN 2 VIE WS)on 11-30-2021 Radiology Study observation (narrative) VIANNEY OLVERA [facility] [employer] Work Phone: Microscopic Urinalysison - [facility] Bacteria, UA TRACE Abnormal None [facility] Epithelial Cells UA 0 TO 2 [facility] Interpretation and review of laboratory results Abnormal [facility] RBC, UA 0 TO 2 [facility] WBC, UA 0 TO 2 [facility] Urinalysis with Reflex to Cu ltureon 10-26-2021 Bilirubin Urine Negative NEGATIVE [facility] Color, UA Yellow Yellow [facility] Glucose, Ur Negative NEGATIVE [facility] Interpretation and review of laboratory results Abnormal [facility] Ketones Ql (U) Negative NEGATIVE [facility] Leukocyte esterase Test strip Ql (U) Negative NEGATIVE [facility] Nitrite, Urine Negative NEGATIVE [facility] th pH, UA 5.5 [facility] Protein, UA Negative NEGATIVE [facility] Specific [place], UA 1.025 [facility] Turbidity UA Clear Clear [facility] Urine Hgb 2+ Abnormal NEGATIVE [facility] Urobilinogen, Urine Normal Normal [facility] Microscopic Urinalysison - [facility] Bacteria, UA 1+ Abnormal None [facility] Epithelial Cells UA 2 TO 5 /HPF [facility] Interpretation and review of laboratory results Abnormal [facility] RBC, UA 2 TO 5 [facility] WBC, UA 20 TO 50 0 /HPF [facility] Yeast, UA OCCASIONAL Abnormal None [facility] Urinalysison 10-14-2021 Bilirubin Urine Negative NEGATIVE [facility] Color, UA Yellow Yellow [facility] Glucose, Ur Negative NEGATIVE [facility] Interpretation and review of laboratory results Abnormal [facility] Ketones Ql (U) Negative NEGATIVE [facility] Leukocyte esterase Test strip Ql (U) 2+ Abnormal NEGATIVE [facility] Nitrite, Urine Negative NEGATIVE [facility] th pH, UA 6.0 [facility] Protein, UA TRACE Abnormal NEGATIVE [facility] Specific [place], UA 1.020 [facility] Turbidity UA Hazy Abnormal Clear [facility] Urinalysis Comments [facility] Urine Hgb 2+ Abnormal NEGATIVE [facility] Urobilinogen, Urine Normal Normal [facility] XR SHOULDER RIGHT (MIN 2 VIE WS)on 08-10-2021 Mild degenerative changes. No acute process. [facility] RIS CONSOLIDATED HISTORY: Pain status post right shoulder arthroscopy TECHNIQUE: 3 views of the right shoulder were obtained COMPARISON: 04/27/2021 FINDINGS: There are mild degenerative changes of acromioclavicular joint. No fracture, dislocation or acute osseous abnormality seen. [facility] John Jauregui MD - 08/10/2021 HISTORY: Pain status post right shoulder arthroscopy TECHNIQUE: 3 views of the right shoulder were obtained COMPARISON: 04/27/2021 FINDINGS: There are mild degenerative changes of acromioclavicular joint. No fracture, dislocation or acute osseous abnormality seen. IMPRESSION: Mild degenerative changes. No acute process. [employer] Phone: Radiology Study observation (narrative) [employer] Phone: XR SHOULDER RIGHT (MIN 2 VIE WS)Ordered By: John Jauregui on 08-10-2021 [employer] Phone: MRI Shoulder w/o Righton MRI Shoulder [...] by Grayson Coronado on 07/12/2021 1110 Normal [facility] [employer] XR SHOULDER RIGHT (MIN 2 VIE WS)Ordered By: Christian Meyer on 04-27-2021 Degenerative changes not unusual for age at the acromioclavicular joint. [employer] Phone: EXAM: XR SHOULDER RI GHT (MIN 2 VIEWS) HISTORY: M25.511. 75-year-old female right shoulder pain. COMPARISON: None. TECHNIQUE: 3 views right shoulder, 4 images. FINDINGS: Moderate degenerative change acromioclavicular joint. Minimal narrowing glenohumeral joint. Negative for calcific bursitis. [employer] Phone: Magdiel, [facility] Incoming R adiant Results From [employer] - 04/27/2021 12:21 PM EDT EXAM: XR SHOULDER RIGHT (MIN 2 VIEWS) HISTORY: M25.511. 75-year-old female right shoulder pain. COMPARISON: None. TECHNIQUE: 3 views right shoulder, 4 images. FINDINGS: Moderate degenerative change acromioclavicular joint. Minimal narrowing glenohumeral joint. Negative for calcific bursitis. IMPRESSION: Degenerative changes not unusual for age at the acromioclavicular joint. [employer] Phone: [employer] Phone: CBCOrdered By: Roni Dahl on 01-09-2021 Hematocrit (Bld) [Volume fraction] 33.2 % Low 36 - 46 % [employer] Phone: Hemoglobin.gastrointe stinal spec 1 Ql (Stl) 11.5 g/dL Low 12.0 - 16.0 g/dL [employer] Phone: Interpretation and review of laboratory results Abnormal [employer] Phone: MCH (RBC) [Entitic mass] 31.6 pg 26 - 34 pg [employer] Phone: MCHC (RBC) [Mass/Vol] 34.7 g/dL 31 - 3 7 g/dL [employer] Phone: MCV (RBC) [Entitic vol] 91.2 fL 80 - 100 fL [employer] Phone: NRBC Automated NOT REPORTED per 100 WBC [employer] Phone: Platelet distribution width (Bld) [Ratio] 15.6 % High 12.1 - 15.2 % [employer] Phone: Platelet mean volume (Bld) [Entitic vol] NOT REPORTED 6.0 - 12.0 fL [employer] Phone: Platelets (Bld) [#/Vol] 223 10*3/uL [employer] Phone: RBC (Bld) [#/Vol] 3.64 10*6/uL Low 4.0 - 5.2 m/uL [employer] Phone: WBC (Bld) [#/Vol] 4.1 10*3/uL [employer] Phone: [employer] Phone: CBCOrdered By: Roni Dahl on 12-09-2020 Hematocrit (Bld) [Volume fraction] 34.2 % Low 36 - 46 % [employer] Phone: Hemoglobin.gastrointe stinal spec 1 Ql (Stl) 11.6 g/dL Low 12.0 - 16.0 g/dL [employer] Phone: Interpretation and review of laboratory results Abnormal [employer] Phone: MCH (RBC) [Entitic mass] 30.6 pg 26 - 34 pg [facility] Work Phone: MCHC (RBC) [Mass/Vol] 33.8 g/dL 31 - 3 7 g/dL [employer] Phone: MCV (RBC) [Entitic vol] 90.7 fL 80 - 100 fL [facility] Work Phone: NRBC Automated NOT REPORTED per 100 WBC [employer] Phone: Platelet distribution width (Bld) [Ratio] 14.1 % 12.1 - 15.2 % [employer] Phone: Platelet mean volume (Bld) [Entitic vol] NOT REPORTED 6.0 - 12.0 fL [employer] Phone: Platelets (Bld) [#/Vol] 365 10*3/uL [facility] Work Phone: RBC (Bld) [#/Vol] 3.78 10*6/uL Low 4.0 - 5.2 m/uL [employer] Phone: WBC (Bld) [#/Vol] 6.3 10*3/uL [employer] Phone: [facility] Work Phone: CBC Auto DifferentialOrdered By: Darryl Sandoval on 11-27-2020 Absolute Eos # 0.16 [employer] [facility] Work Phone: Absolute Immature Granulocyte 0.35 High [facility] Work Phone: Absolute Lymph # 1.23 [employer] [facility] Work Phone: Absolute Assumption # 0.95 [employer] [facility] Work Phone: Basophils (Bld) [#/Vol] 10*3/uL [facility] Work Phone: Basophils/100 WBC (Bld) 0 % 0 - 2 % [employer] Phone: Differential Type NOT REPORTED [employer] Phone: Eosinophils/100 WBC (Bld) 2 % 1 - 4 % [employer] Phone: Hematocrit (Bld) [Volume fraction] 34.3 % Low 36.3 - 47.1 % [employer] Phone: Hemoglobin.gastrointe stinal spec 1 Ql (Stl) 11.0 g/dL Low 11.9 - 15.1 g/dL [employer] Phone: Immature granulocytes/100 WBC (Bld) 5 % High 0 [employer] Phone: Interpretation and review of laboratory results Abnormal [employer] Phone: Lymphocytes/100 WBC (Bld) 16 % Low 24 - 43 % [employer] Phone: MCH (RBC) [Entitic mass] 30.5 pg 25.2 - 33.5 pg [employer] Phone: MCHC (RBC) [Mass/Vol] 32.1 g/dL 28.4 - 34.8 g/dL [employer] Phone: MCV (RBC) [Entitic vol] 95.0 fL 82.6 - 102.9 fL [employer] Phone: Monocytes/100 WBC (Bld) 12 % 3 - 12 % [employer] Phone: NRBC Automated 0.0 0.0 per 100 WBC [employer] Phone: Platelet distribution width (Bld) [Ratio] 13.3 % 11.8 - 14.4 % [employer] Phone: Platelet Estimate NOT REPORTED [employer] Phone: Platelet mean volume (Bld) [Entitic vol] 9.7 fL 8.1 - 13.5 fL [employer] Phone: Platelets (Bld) [#/Vol] 242 10*3/uL [employer] Phone: RBC (Bld) [#/Vol] 3.61 10*6/uL Low 3.95 - 5.11 m/uL [employer] Phone: RBC (Bld) [#/Vol] NOT REPORTED [employer] Phone: Segmented neutrophils/100 WBC (Bld) 65 % 36 - 65 % [employer] Phone: Segs Absolute 5[employer]07 [employer] Work Phone: WBC (Bld) [#/Vol] 7.8 10*3/uL [employer] Phone: WBC (Bld) [#/Vol] NOT REPORTED [employer] Phone: [employer] Phone: COVID-19, RapidOrdered By: Vazquez Sandoval on 11-27-2020 SARS-CoV-2 (COVID-19) RNA JUAQUIN+probe Ql (Unsp spec) Not detected Not Detected [employer] Phone: Comment on above: Rapid NAAT: The [...] management decisions. Fact sheet for Healthcare Providers: https://www.fda.gov/media/523767/download Fact sheet for Patients: https://www.fda.gov/media/250604/download Methodology: Isothermal Nucleic Acid Amplification Specimen Description .NASOPHARYNGEAL SWAB [employer] Phone: [employer] Phone: Comprehensive Metabolic Pane lOrdered By: Darryl Sandoval on 11-27-2020 Albumin [Mass/Vol] 3 g/dL Low 3.5 - 5.2 g/dL [employer] Phone: Albumin/Globulin [Mass ratio] 0.8 {ratio} Low [employer] Phone: ALP (Bld) [Catalytic activity/Vol] 154 U/L High 35 - 104 U/L [employer] Phone: ALT [Catalytic activity/Vol] 45 U/L High 5 - 33 U/L [employer] Phone: Anion gap [Moles/Vol] 11 mmol/L 9 - 17 mmol/L [employer] Phone: AST [Catalytic activity/Vol] 44 U/L High <32 [employer] Phone: Bilirubin [Mass/Vol] 0.35 mg/dL 0.3 - 1 .2 mg/dL [employer] Phone: Calcium [Mass/Vol] 9.4 mg/dL 8.6 - 10. 4 mg/dL [employer] Phone: Chloride [Moles/Vol] 103 mmol/L 98 - 10 7 mmol/L [employer] Phone: CO2 [Moles/Vol] 21 mmol/L 20 - 31 mmol/L [employer] Phone: Creatinine [Mass/Vol] 1 mg/dL High 0.50 - 0.90 mg/dL [employer] Phone: Free PSA/Total PSA [Mass fraction] 7.0 g/dL 6.4 - 8.3 g/dL [employer] Phone: GFR >60 >60 mL/min [employer] Phone: GFR Non- 54 mL/min Low >60 [employer] Phone: Glucose [Mass/Vol] 87 mg/dL 70 - 99 mg/dL [employer] Phone: Interpretation and review of laboratory results Abnormal [employer] Phone: Potassium [Moles/Vol] 4.1 mmol/L 3.7 - 5.3 mmol/L [employer] Phone: Sodium [Moles/Vol] 135 mmol/L 135 - 144 mmol/L [employer] Phone: Urea nitrogen (BldV) [Mass/Vol] 16 mg/dL 8 - 23 mg/dL [employer] Phone: Urea nitrogen/Creatinine (Bld) [Mass ratio] 16 [employer] Phone: [employer] Phone: Laboratory - Chemistry and C hemistry - challengeOrdered By: Darryl Sandoval on 11-27-2020 GFR/1.73 sq M.predicted MDRD (S/P/Bld) [Vol rate/Area] [employer] Phone: Comment on above: Average GFR for 70 o r more years old: 75 mL/min/1.73sq m Chronic Kidney Disease: <60 mL/min/1.73sq m Kidney failure: <15 mL/min/1.73sq m eGFR calculated using average adult body mass. Additional eGFR calculator available at: http://www.[employer].Tunes.com/multiple_crcl_2012.htm Stage 1: Some kidney damage normal GFR Stage 2: Mild kidney damage GFR 60-89 Stage 3: Moderate kidney damage GFR 30-59 Stage 4: Severe kidney damage GFR 15-29 Stage 5: Severe kidney damage GFR <15 ESRD - chronic treatment by dialysis or transplant LipaseOrdered By: Darryl farias on 11-27-2020 Lipase [Catalytic activity/Vol] 24 U/L 13 - 60 U/L [facility] Work Phone: [facility] Work Phone: MagnesiumOrdered By: Darryl Sandoval on 11-27-2020 Magnesium [Mass/Vol] 2.3 mg/dL 1.6 - 2 .6 mg/dL [facility] Work Phone: [facility] Work Phone: Urinalysis with MicroscopicO rdered By: Darryl Sandoval on 11-27-2020 - [facility] Work Phone: Amorphous, UA NOT REPORTED None [facility] Work Phone: Bacteria, UA TRACE Abnormal None [facility] Work Phone: Bilirubin Urine Negative NEGATIVE [facility] Work Phone: Casts UA NOT REPORTED /LPF [facility] Work Phone: Color, UA YELLOW YELLOW [facility] Work Phone: Crystals, UA NOT REPORTED None /HPF [employer] Work Phone: Epithelial Cells UA 2 TO 5 [facility] Work Phone: Glucose, Ur Negative NEGATIVE [facility] Work Phone: Interpretation and review of laboratory results Abnormal [facility] Work Phone: Ketones Ql (U) Negative NEGATIVE [facility] [employer] Work Phone: Leukocyte esterase Test strip Ql (U) Negative NEGATIVE [facility] Work Phone: Mucus, UA TRACE Abnormal None [facility] Work Phone: Nitrite, Urine Negative NEGATIVE [facility] [employer] Work Phone: Other Observations UA NOT REPORTED NOT REQ. M [facility] [employer] Work Phone: pH, UA 6.0 [facility] Work Phone: Protein, UA Negative NEGATIVE [facility] Work Phone: RBC, UA 2 TO 5 [facility] Work Phone: Renal Epithelial, UA NOT REPORTED 0 /HPF [facility] Work Phone: Specific Eldridge, UA 1.025 High [employer] Work Phone: Trichomonas, UA NOT REPORTED None [facility] Work Phone: Turbidity UA CLEAR CLEAR [facility] Work Phone: Urinalysis Comments NOT REPORTED [facility] Work Phone: Urine Hgb 1+ Abnormal NEGATIVE [facility] Work Phone: Urobilinogen, Urine Normal Normal [facility] Work Phone: WBC, UA 0 TO 2 [facility] Work Phone: Yeast, UA NOT REPORTED None [facility] Work Phone: [facility] Work Phone: Comprehensive Metabolic Pane lOrdered By: Roni Dahl on 11-22-2020 Albumin [Mass/Vol] 3.5 g/dL 3.5 - 5.2 g/dL [facility] Work Phone: Albumin/Globulin Ratio NOT REPORTED [facility] Work Phone: ALP (Bld) [Catalytic activity/Vol] 67 U/L 35 - 104 U/L [facility] Work Phone: ALT [Catalytic activity/Vol] 22 U/L 5 - 33 U/L [facility] Work Phone: Anion gap [Moles/Vol] 7 mmol/L Low 9 - 17 mmol/L [facility] Work Phone: AST [Catalytic activity/Vol] 21 U/L <32 [facility] Work Phone: Bilirubin [Mass/Vol] 0.35 mg/dL 0.30 - 1.20 mg/dL [facility] [facility] Phone: Calcium [Mass/Vol] 8.9 mg/dL 8.6 - 10. 4 mg/dL [facility] [facility] Phone: Chloride [Moles/Vol] 103 mmol/L 98 - 10 7 mmol/L [employer] Phone: CO2 [Moles/Vol] 26 mmol/L 20 - 31 mmol/L [facility] [facility] Phone: Creatinine [Mass/Vol] 0.98 mg/dL High 0.50 - 0.90 mg/dL [facility] [facility] Phone: Free PSA/Total PSA [Mass fraction] 6.3 g/dL Low 6.4 - 8.3 g/dL [facility] [facility] Phone: GFR >60 >60 mL/min [employer] Phone: GFR Non- 55 mL/min Low >60 [facility] [facility] Phone: GFR/1.73 sq M.predicted MDRD (S/P/Bld) [Vol rate/Area] [facility] Phone: Comment on above: Average GFR for 70 o r more years old: 75 mL/min/1.73sq m Chronic Kidney Disease: <60 mL/min/1.73sq m Kidney failure: <15 mL/min/1.73sq m eGFR calculated using average adult body mass. Additional eGFR calculator available at: http://www.W[employer]rikworks.Tunes.com/multiple_crcl_2012.htm GFR/1.73 sq M.predicted MDRD (S/P/Bld) [Vol rate/Area] NOT REPORTED [facility] [facility] Phone: Glucose [Mass/Vol] 94 mg/dL 70 - 99 mg/dL [facility] Phone: Interpretation and review of laboratory results Abnormal [employer] Phone: Potassium [Moles/Vol] 3.3 mmol/L Low 3.7 - 5.3 mmol/L [facility] Phone: Sodium [Moles/Vol] 136 mmol/L 135 - 144 mmol/L [facility] Phone: Urea nitrogen (BldV) [Mass/Vol] 16 mg/dL 8 - 23 mg/dL [facility] [facility] Phone: Urea nitrogen/Creatinine (Bld) [Mass ratio] 16 [employer] Phone: [facility] Phone: AmylaseOrdered By: Naida estrada on 11-18-2020 Amylase [Catalytic activity/Vol] 141 U/L High 28 - 100 U/L [employer] Phone: Interpretation and review of laboratory results Abnormal [employer] Phone: Basic Metabolic PanelOrdered By: Naida Grissom on 11-18-2020 Anion gap [Moles/Vol] 10 mmol/L 9 - 17 mmol/L [employer] Phone: Calcium [Mass/Vol] 8.9 mg/dL 8.6 - 10. 4 mg/dL [facility] Phone: Chloride [Moles/Vol] 105 mmol/L 98 - 10 7 mmol/L [employer] Phone: CO2 [Moles/Vol] 21 mmol/L 20 - 31 mmol/L [facility] Phone: Creatinine [Mass/Vol] 1.06 mg/dL High 0.50 - 0.90 mg/dL [facility] [facility] Phone: GFR >60 >60 mL/min [employer] Phone: GFR Non- 51 mL/min Low >60 [employer] Phone: GFR/1.73 sq M.predicted MDRD (S/P/Bld) [Vol rate/Area] [employer] Phone: Comment on above: Average GFR for 70 o r more years old: 75 mL/min/1.73sq m Chronic Kidney Disease: <60 mL/min/1.73sq m Kidney failure: <15 mL/min/1.73sq m eGFR calculated using average adult body mass. Additional eGFR calculator available at: http://www.[employer]/multiple_crcl_2012.htm GFR/1.73 sq M.predicted MDRD (S/P/Bld) [Vol rate/Area] NOT REPORTED [employer] Phone: Glucose [Mass/Vol] 139 mg/dL High 70 - 99 mg/dL [facility] Phone: Interpretation and review of laboratory results Abnormal [employer] Phone: Potassium [Moles/Vol] 3.4 mmol/L Low 3.7 - 5.3 mmol/L [facility] Work Phone: Sodium [Moles/Vol] 136 mmol/L 135 - 144 mmol/L [employer] Phone: Urea nitrogen (BldV) [Mass/Vol] 22 mg/dL 8 - 23 mg/dL [employer] Phone: Urea nitrogen/Creatinine (Bld) [Mass ratio] 21 High [facility] Work Phone: [facility] Work Phone: CBC auto differentialOrdered By: Naida Grissom on 11-18-2020 Absolute Eos # 0.10 [employer] [facility] Work Phone: Absolute Immature Granulocyte NOT REPORTED [employer] Phone: Absolute Lymph # 0.60 Low [facility] [facility] Work Phone: Absolute Assumption # 0.40 [facility] [facility] Work Phone: Basophils (Bld) [#/Vol] 0.00 10*3/uL [facility] Work Phone: Basophils/100 WBC (Bld) 0 % 0 - 2 % [facility] Work Phone: Differential Type YES [facility] Work Phone: Eosinophils/100 WBC (Bld) 1 % 0 - 5 % [facility] Work Phone: Hematocrit (Bld) [Volume fraction] 37.6 % 36 - 46 % [facility] Work Phone: Hemoglobin.gastrointe stinal spec 1 Ql (Stl) 12.9 g/dL 12.0 - 16.0 g/dL [facility] [facility] Phone: Immature Granulocytes NOT REPORTED 0 % M [employer] Phone: Interpretation and review of laboratory results Abnormal [facility] Phone: Lymphocytes/100 WBC (Bld) 8 % Low 15 - 40 % [employer] Phone: MCH (RBC) [Entitic mass] 31.8 pg 26 - 34 pg [employer] Phone: MCHC (RBC) [Mass/Vol] 34.4 g/dL 31 - 3 7 g/dL [employer] Phone: MCV (RBC) [Entitic vol] 92.4 fL 80 - 100 fL [facility] Work Phone: Monocytes/100 WBC (Bld) 6 % 4 - 8 % [employer] Phone: NRBC Automated NOT REPORTED per 100 WBC [employer] Phone: Platelet distribution width (Bld) [Ratio] 14.1 % 12.1 - 15.2 % [employer] Phone: Platelet Estimate NOT REPORTED [employer] Phone: Platelet mean volume (Bld) [Entitic vol] NOT REPORTED 6.0 - 12.0 fL [facility] Phone: Platelets (Bld) [#/Vol] 179 10*3/uL [facility] Phone: RBC (Bld) [#/Vol] 4.07 10*6/uL 4.0 - 5.2 m/uL [facility] Phone: RBC (Bld) [#/Vol] NOT REPORTED [facility] Phone: Segmented neutrophils/100 WBC (Bld) 85 % High 47 - 75 % [facility] Work Phone: Segs Absolute 5.80 [employer] Work Phone: WBC (Bld) [#/Vol] 6.9 10*3/uL [facility] [facility] Phone: WBC (Bld) [#/Vol] NOT REPORTED [facility] Phone: [facility] Work Phone: Hepatic Function PanelOrdere d By: Naida Grissom on 11-18-2020 Albumin [Mass/Vol] 3.7 g/dL 3.5 - 5.2 g/dL [facility] [facility] Phone: Albumin/Globulin Ratio NOT REPORTED [facility] Phone: ALP (Bld) [Catalytic activity/Vol] 84 U/L 35 - 104 U/L [employer] Phone: ALT [Catalytic activity/Vol] 63 U/L High 5 - 33 U/L [employer] Phone: AST [Catalytic activity/Vol] 104 U/L High <32 [employer] Phone: Bilirubin [Mass/Vol] 0.49 mg/dL 0.30 - 1.20 mg/dL [employer] Phone: Bilirubin, Indirect CANNOT BE CALCULATED 0.00 - 1.00 mg/dL [facility] Phone: Bilirubin.indirect [Mass/Vol] mg/dL <0.31 mg/dL [facility] Work Phone: Free PSA/Total PSA [Mass fraction] 6.9 g/dL 6.4 - 8.3 g/dL [facility] Work Phone: Globulin NOT REPORTED 1.5 - 3.8 g/dL [facility] Work Phone: Interpretation and review of laboratory results Abnormal [facility] Work Phone: [facility] Work Phone: LipaseOrdered By: Naida field on 11-18-2020 Lipase [Catalytic activity/Vol] 50 U/L 13 - 60 U/L [facility] Work Phone: Microscopic UrinalysisOrdere d By: Naida Grissom on 11-18-2020 - [facility] Work Phone: Amorphous, UA NOT REPORTED None [facility] Work Phone: Bacteria, UA 1+ Abnormal None [facility] Work Phone: Casts UA NOT REPORTED /LPF [facility] Work Phone: Crystals, UA NOT REPORTED None /HPF [facility] Work Phone: Epithelial Cells UA 0 TO 2 /HPF [facility] Work Phone: Mucus, UA NOT REPORTED None [facility] Work Phone: Other Observations UA NOT REPORTED NOT REQ. M [facility] Work Phone: RBC, UA 0 TO 2 [facility] Work Phone: Renal Epithelial, UA NOT REPORTED 0 /HPF [facility] Work Phone: Trichomonas, UA NOT REPORTED None [facility] Work Phone: WBC, UA 2 TO 5 0 /HPF [facility] Work Phone: Yeast, UA NOT REPORTED None [facility] Work Phone: No Panel InformationOrdered By: Naida Grissom on 11-18-2020 Interpretation and review of laboratory results Abnormal [facility] Work Phone: [facility] Work Phone: [facility] Work Phone: Urinalysis, reflex to micros copicOrdered By: Naida Grissom on 11-18-2020 Bilirubin Urine Negative NEGATIVE [employer] [facility] Work Phone: Color, UA TARA Abnormal YELLOW [facility] Work Phone: Glucose, Ur Negative NEGATIVE [facility] Work Phone: Ketones Ql (U) Negative NEGATIVE [employer] [facility] Work Phone: Leukocyte esterase Test strip Ql (U) 1+ Abnormal NEGATIVE [facility] Work Phone: Nitrite, Urine Negative NEGATIVE [employer] Work Phone: pH, UA 5.0 [facility] Work Phone: Protein, UA Negative NEGATIVE [facility] Work Phone: Specific Eldridge, UA 1.025 [employer] Work Phone: Turbidity UA CLEAR CLEAR [facility] Work Phone: Urinalysis Comments [facility] Work Phone: Urine Hgb 1+ Abnormal NEGATIVE [facility] Work Phone: Urobilinogen, Urine Normal Normal [facility] Work Phone: CBC Auto Differentialon 08-01 Basophils (Bld) [#/Vol] 0.00 10*3/uL [facility] Work Phone: Basophils/100 WBC (Bld) 0 % 0 - 2 % [facility] Work Phone: Differential Type YES [facility] Work Phone: Eosinophils (Bld) [#/Vol] 0.10 10*3/uL [employer] Phone: Eosinophils/100 WBC (Bld) 2 % 0 - 5 % [employer] Phone: Erythrocyte distribution width (RBC) [Ratio] 14.3 % 12.1 - 15.2 % [employer] Phone: Hematocrit (Bld) [Volume fraction] 36.5 % 36 - 46 % [employer] Phone: Hemoglobin (Bld) [Mass/Vol] 12.3 g/dL 12 - 16 g/dL [employer] Phone: Interpretation and review of laboratory results Abnormal [employer] Phone: Lymphocytes (Bld) [#/Vol] 1.20 10*3/uL [employer] Phone: Lymphocytes/100 WBC (Bld) 24 % 15 - 40 % [employer] Phone: MCH (RBC) [Entitic mass] 32.7 pg 26 - 34 pg [employer] Phone: MCHC (RBC) [Mass/Vol] 33.9 g/dL 31 - 3 7 g/dL [employer] Phone: MCV (RBC) [Entitic vol] 96.6 fL 80 - 100 fL [employer] Phone: Monocytes (Bld) [#/Vol] 0.50 10*3/uL [facility] Phone: Monocytes/100 WBC (Bld) 9 % High 4 - 8 % [employer] Phone: Platelet mean volume (Bld) [Entitic vol] NOT REPORTED 6 - 12 fL [employer] Phone: Platelets (Bld) [#/Vol] NOT REPORTED [employer] Phone: Platelets (Bld) [#/Vol] 223 10*3/uL [facility] Work Phone: RBC (Bld) [#/Vol] 3.77 10*6/uL Low 4 - 5.2 m/uL [facility] Work Phone: RBC morphology finding Nom (Bld) NOT REPORTED [facility] Phone: Segmented neutrophils/100 WBC (Bld) 65 % 47 - 75 % [facility] Work Phone: Segs Absolute 3.30 [employer] Work Phone: WBC (Bld) [#/Vol] 5.1 10*3/uL [employer] Phone: WBC (Bld) [#/Vol] NOT REPORTED per 100 WBC [facility] [facility] Phone: WBC Morphology NOT REPORTED [employer] [facility] Work Phone: Comprehensive Metabolic Pane trevor 08-11-2020 Albumin [Mass/Vol] 3.9 g/dL 3.5 - 5.2 g/dL [employer] Phone: Albumin/Globulin [Mass ratio] NOT REPORTED [employer] Phone: ALP [Catalytic activity/Vol] 76 U/L 35 - 104 U/L [employer] Phone: ALT [Catalytic activity/Vol] 16 U/L 5 - 33 U/L [employer] Phone: Anion gap [Moles/Vol] 10 mmol/L 9 - 17 mmol/L [employer] Phone: AST [Catalytic activity/Vol] 19 U/L <32 [employer] Phone: Bilirubin Ql (U) 0.35 mg/dL 0.3 - 1.2 mg/dL [employer] Phone: Bun/Cre Ratio 23 High [employer] Work Phone: Calcium [Mass/Vol] 9.9 mg/dL 8.6 - 10. 4 mg/dL [employer] Phone: Chloride [Moles/Vol] 105 mmol/L 98 - 10 7 mmol/L [employer] Phone: CO2 [Moles/Vol] 25 mmol/L 20 - 31 mmol/L [employer] Phone: Creatinine [Mass/Vol] 1.14 mg/dL High 0.5 - 0.9 mg/dL [employer] Phone: GFR 56 mL/min Low >60 [employer] Phone: GFR Non- 46 mL/min Low >60 [facility] Phone: GFR/1.73 sq M predicted among non-blacks MDRD (S/P/Bld) [Vol rate/Area] [employer] Phone: Comment on above: Average GFR for 70 o r more years old: 75 mL/min/1.73sq m Chronic Kidney Disease: <60 mL/min/1.73sq m Kidney failure: <15 mL/min/1.73sq m eGFR calculated using average adult body mass. Additional eGFR calculator available at: http://www.[employer]/multiple_crcl_2012.htm GFR/1.73 sq M predicted among non-blacks MDRD (S/P/Bld) [Vol rate/Area] NOT REPORTED [employer] Phone: Glucose [Mass/Vol] 98 mg/dL 70 - 99 mg/dL [employer] Phone: Interpretation and review of laboratory results Abnormal [employer] Phone: Potassium [Moles/Vol] 4.3 mmol/L 3.7 - 5.3 mmol/L [employer] Phone: Protein [Mass/Vol] 6.7 g/dL 6.4 - 8.3 g/dL [employer] Phone: Sodium [Moles/Vol] 140 mmol/L 135 - 144 mmol/L [employer] Phone: Urea nitrogen [Mass/Vol] 26 mg/dL High 8 - 23 mg/dL [employer] Phone: Lipid Panelon 08-11-2020 Cholesterol [Mass/Vol] 126 mg/dL <200 [employer] Phone: Comment on above: Cholesterol Guidelines: <200 Desirable 200-240 Borderline >240 Undesirable Cholesterol in HDL [Mass/Vol] 45 mg/dL >40 [employer] Phone: Comment on above: HDL Guidelines: <40 Undesirable 40-59 Borderline >59 Desirable Cholesterol in LDL [Mass/Vol] 62 mg/dL 0 - 130 mg/dL [employer] Phone: Comment on above: LDL Guidelines: <100 Desirable 100-129 Near to/above Desirable 130-159 Borderline >159 Undesirable Direct (measured) LDL and calculated LDL are not interchangeable tests. Cholesterol in VLDL [Mass/Vol] NOT REPORTED 1 - 30 mg/dL [employer] Phone: Cholesterol.total/Cho lesterol in HDL [Mass ratio] 2.8 {ratio} <5 [employer] Phone: Triglyceride [Mass/Vol] 94 mg/dL <150 [employer] Phone: Comment on above: Triglyceride Guidelines: <150 Desirable 150-199 Borderline 200-499 High >499 Very high Based on AHA Guidelines for fasting triglyceride, March 2012. Magnesiumon 08-11-2020 Magnesium [Mass/Vol] 2.1 mg/dL 1.6 - 2 .6 mg/dL [employer] Phone: Otheron 08-11-2020 Immature granulocytes (Bld) [#/Vol] NOT REPORTED [employer] Phone: Patient Fasting?on 1 Patient Fasting? yes [employer] Work Phone: TSH with Reflexon 08-11-2020 TSH Qn 2.05 m[IU]/L [employer] Phone: Vitamin D 25 Hydroxyon 08-11 Vit D, 25-Hydroxy 50.9 ng/mL 30 - 100 ng/mL [employer] Phone: Comment on above: Reference Range: Vitamin D status Range Deficiency <20 ng/mL Mild Deficiency 20-30 ng/mL Sufficiency 30-100 ng/mL Toxicity >100 ng/mL CBC Auto Differentialon 10-0 Basophils (Bld) [#/Vol] 0.00 10*3/uL [place] Basophils/100 WBC (Bld) 1 % 0 - 2 % [place] Differential Type YES [place] Eosinophils (Bld) [#/Vol] 0.10 10*3/uL [place] Eosinophils/100 WBC (Bld) 1 % 0 - 5 % [place] Erythrocyte distribution width (RBC) [Ratio] 14.2 % 12.1 - 15.2 % [place] Hematocrit (Bld) [Volume fraction] 37.4 % 36 - 46 % [place] Hemoglobin (Bld) [Mass/Vol] 12.4 g/dL 12 - 16 g/dL [place] Interpretation and review of laboratory results Abnormal [place] Lymphocytes (Bld) [#/Vol] 1.50 10*3/uL [place] Lymphocytes/100 WBC (Bld) 24 % 15 - 40 % [place] MCH (RBC) [Entitic mass] 32.1 pg 26 - 34 pg [place] MCHC (RBC) [Mass/Vol] 33.2 g/dL 31 - 3 7 g/dL [place] MCV (RBC) [Entitic vol] 96.7 fL 80 - 100 fL [place] Monocytes (Bld) [#/Vol] 0.50 10*3/uL [place] Monocytes/100 WBC (Bld) 9 % High 4 - 8 % [place] Platelet mean volume (Bld) [Entitic vol] NOT REPORTED 6 - 12 fL [place] Platelets (Bld) [#/Vol] 205 10*3/uL [place] Platelets (Bld) [#/Vol] NOT REPORTED [place] RBC (Bld) [#/Vol] 3.87 10*6/uL Low 4 - 5.2 m/uL [place] RBC morphology finding Nom (Bld) NOT REPORTED [place] Segmented neutrophils/100 WBC (Bld) 65 % 47 - 75 % [place] Segs Absolute 4.10 [place] WBC (Bld) [#/Vol] NOT REPORTED per 100 WBC [place] WBC (Bld) [#/Vol] 6.2 10*3/uL [place] WBC Morphology NOT REPORTED [place], [place] CT Head WO Contraston 2019 CT [...] by noncontrast CT. There is intracranial atherosclerosis. [place] [employer] Incoming R adiant Results From [employer] - 03/31/2020 4:[address] head [...] MRI would be recommended for further evaluation. [place] 1. No acute intracra nial abnormality. 2. Stable chronic small vessel ischemic disease. 3. Intracranial atherosclerosis. If the patient has a focal neurologic deficit or there is clinical suspicion for acute cerebrovascular accident, brain MRI would be recommended for further evaluation. [place] Comprehensive Metabolic Pane l w/ Reflex to MGon 03-31-2020 Albumin [Mass/Vol] 4.2 g/dL 3.5 - 5.2 g/dL [place] Albumin/Globulin [Mass ratio] NOT REPORTED [place] ALP [Catalytic activity/Vol] 75 U/L 35 - 104 U/L [place] ALT [Catalytic activity/Vol] 11 U/L 5 - 33 U/L [place] Anion gap [Moles/Vol] 8 mmol/L Low 9 - 17 mmol/L [place] AST [Catalytic activity/Vol] 17 U/L <32 [place] Bilirubin Ql (U) 0.38 mg/dL 0.3 - 1.2 mg/dL [place] Bun/Cre Ratio 21 High [place] Calcium [Mass/Vol] 9.1 mg/dL 8.6 - 10. 4 mg/dL [place] Chloride [Moles/Vol] 98 mmol/L 98 - 10 7 mmol/L [place] CO2 [Moles/Vol] 28 mmol/L 20 - 31 mmol/L [place] Creatinine [Mass/Vol] 1.04 mg/dL High 0.5 - 0.9 mg/dL [place] GFR >60 >60 mL/min [place] GFR Non- 52 mL/min Low >60 [place] GFR/1.73 sq M predicted among non-blacks MDRD (S/P/Bld) [Vol rate/Area] [place] Comment on above: Average GFR for 70 o r more years old: 75 mL/min/1.73sq m Chronic Kidney Disease: <60 mL/min/1.73sq m Kidney failure: <15 mL/min/1.73sq m eGFR calculated using average adult body mass. Additional eGFR calculator available at: http://www.[employer]/multiple_crcl_2012.htm GFR/1.73 sq M predicted among non-blacks MDRD (S/P/Bld) [Vol rate/Area] NOT REPORTED [place] Glucose [Mass/Vol] 94 mg/dL 70 - 99 mg/dL [place] Interpretation and review of laboratory results Abnormal [place] Potassium [Moles/Vol] 4.2 mmol/L 3.7 - 5.3 mmol/L [place] Protein [Mass/Vol] 7.1 g/dL 6.4 - 8.3 g/dL [place] Sodium [Moles/Vol] 134 mmol/L Low 135 - 144 mmol/L [place] Urea nitrogen [Mass/Vol] 22 mg/dL 8 - 23 mg/dL [place] Microscopic Urinalysison Amorphous, UA NOT REPORTED None [facility] [place] Bacteria, UA NOT REPORTED None [place] Casts UA NOT REPORTED /LPF [place] Crystals, UA NOT REPORTED None /HPF [place] Epithelial Cells UA 0 TO 2 /HPF [place] Mucus, UA NOT REPORTED None [place] Other Observations UA NOT REPORTED NOT REQ. M [place] RBC (U) [#/Vol] 2 TO 5 [place], [place] Renal Epithelial, UA NOT REPORTED 0 /HPF [place], [place] Trichomonas, UA NOT REPORTED None [place], [place] WBC, UA 0 TO 2 0 /HPF [place] Yeast, UA NOT REPORTED None [place], [place] - [place] Otheron 03-31-2020 Immature granulocytes (Bld) [#/Vol] NOT REPORTED 0 % [place] TSH with Reflexon 03-31-2020 TSH Qn 1.98 m[IU]/L [place] Troponinon 03-31-2020 Troponin I.cardiac [Mass/Vol] [place] Comment on above: Reference Range: <0.03 [...] diagnosis. Troponin T.cardiac [Mass/Vol] ug/L <0.03 ng/mL [place] Comment on above: Troponin T results c annot be compared to Troponin-I results. Troponin, High Sensitivity NOT REPORTED 0 - 14 ng/L [place] Urinalysis, reflex to micros copicon 03-31-2020 Bilirubin Urine Negative NEGATIVE [place], [place] Color, UA YELLOW YELLOW [place] Glucose, Ur Negative NEGATIVE [place] Interpretation and review of laboratory results Abnormal [place] Ketones Ql (U) Negative NEGATIVE [place] Leukocyte esterase Test strip Ql (U) Negative NEGATIVE [place] Nitrite, Urine Negative NEGATIVE [place] pH, UA 7.0 [place] Protein (U) [Mass/Vol] Negative NEGATIVE [place] Specific [place], UA 1.005 [place] Turbidity UA CLEAR CLEAR [place] Urinalysis Comments [place] Urine Hgb TRACE Abnormal NEGATIVE [place] Urobilinogen, Urine Normal Normal [place] XR CHEST PORTABLEon 03-31-20 20 Negative [facility] [place] [employer], M[facility] Incoming R adiant Results From [employer] - 03/31/2020 2:47 PM EDT EXAM: XR CHEST PORTABLE HISTORY: Reason for exam:->gen weakness 74-year-old female COMPARISON: Chest 07/07/2019 TECHNIQUE: AP portable chest 1424 hours FINDINGS: Heart size normal. Lungs clear. Bony thorax and upper abdomen normal. IMPRESSION: Negative chest. [place] EXAM: XR CHEST STARLA BLE HISTORY: Reason for exam:->gen weakness 74-year-old female COMPARISON: Chest 07/07/2019 TECHNIQUE: AP portable chest 1424 hours FINDINGS: Heart size normal. Lungs clear. Bony thorax and upper abdomen normal. [place] CBC Auto DifferentialOrdered By: Reagan Givens on 07-07-2019 Absolute Eos # 0.10 [facility] Work Phone: Absolute Immature Granulocyte NOT REPORTED [facility] Work Phone: Absolute Lymph # 1.20 [facility] Work Phone: Absolute Assumption # 0.40 [facility] Work Phone: Basophils (Bld) [#/Vol] 0.00 10*3/uL [facility] Work Phone: Basophils/100 WBC (Bld) 0 % 0 - 2 % [facility] Work Phone: Differential Type YES [facility] Work Phone: Eosinophils/100 WBC (Bld) 2 % 0 - 5 % [facility] Work Phone: Erythrocyte distribution width (RBC) [Ratio] 14.6 % 12.1 - 15.2 % [facility] Work Phone: Hematocrit (Bld) [Volume fraction] 35.9 % Low 36 - 46 % [facility] Work Phone: Hemoglobin (Bld) [Mass/Vol] 12.2 g/dL 12 - 16 g/dL [employer] Phone: Immature Granulocytes NOT REPORTED 0 % [facility] Work Phone: Interpretation and review of laboratory results Abnormal [facility] [facility] Phone: Lymphocytes/100 WBC (Bld) 28 % 15 - 40 % [facility] Work Phone: MCH (RBC) [Entitic mass] 33.2 pg 26 - 34 pg [employer] [facility] Phone: MCHC (RBC) [Mass/Vol] 34.1 g/dL 31 - 3 7 g/dL [employer] [facility] Phone: MCV (RBC) [Entitic vol] 97.3 fL 80 - 100 fL [facility] [facility] Phone: Monocytes/100 WBC (Bld) 10 % High 4 - 8 % [facility] Work Phone: MPV NOT REPORTED 6 - 12 fL [facility] [facility] Phone: NRBC Automated NOT REPORTED per 100 WBC [facility] [facility] Phone: Platelet Estimate NOT REPORTED [facility] [facility] Phone: Platelets (Bld) [#/Vol] 223 10*3/uL [facility] Work Phone: RBC (Bld) [#/Vol] 3.69 10*6/uL Low 4 - 5.2 m/uL [facility] Work Phone: RBC morphology finding Nom (Bld) NOT REPORTED [facility] Phone: Segmented neutrophils/100 WBC (Bld) 60 % 47 - 75 % [facility] Work Phone: Segs Absolute 2.60 [employer] Work Phone: WBC (Bld) [#/Vol] 4.4 10*3/uL [facility] Work Phone: WBC Morphology NOT REPORTED [employer] [facility] Work Phone: Comprehensive Metabolic Pane lOrdered By: Reagan Givens on 07-07-2019 Albumin [Mass/Vol] 4.2 g/dL 3.5 - 5.2 g/dL [facility] Phone: Albumin/Globulin Ratio NOT REPORTED [facility] Work Phone: ALP [Catalytic activity/Vol] 66 U/L 35 - 104 U/L [facility] Work Phone: ALT [Catalytic activity/Vol] 9 U/L 5 - 33 U/L [facility] [facility] Phone: Anion gap [Moles/Vol] 14 mmol/L 9 - 17 mmol/L [facility] [facility] Phone: AST [Catalytic activity/Vol] 17 U/L <32 [facility] Work Phone: Bilirubin [Mass/Vol] 0.32 mg/dL 0.3 - 1 .2 mg/dL [facility] [facility] Phone: Bun/Cre Ratio 17 [facility] [employer] Work Phone: Calcium [Mass/Vol] 10.2 mg/dL 8.6 - 10. 4 mg/dL [facility] [facility] Phone: Chloride [Moles/Vol] 103 mmol/L 98 - 10 7 mmol/L [facility] Work Phone: CO2 [Moles/Vol] 24 mmol/L 20 - 31 mmol/L [facility] Work Phone: Creatinine [Mass/Vol] 1.26 mg/dL High 0.5 - 0.9 mg/dL [facility] [facility] Phone: GFR 50 mL/min Low >60 L[facility] [employer] Work Phone: GFR Comment [facility] Work Phone: Comment on above: Average GFR for 70 o r more years old: 75 mL/min/1.73sq m Chronic Kidney Disease: <60 mL/min/1.73sq m Kidney failure: <15 mL/min/1.73sq m eGFR calculated using average adult body mass. Additional eGFR calculator available at: http://www.[employer]um[employer]/multiple_crcl_2012.htm GFR Non- 42 mL/min Low >60 [facility] Phone: GFR Staging NOT REPORTED [employer] Work Phone: Glucose [Mass/Vol] 106 mg/dL High 70 - 99 mg/dL [facility] Phone: Interpretation and review of laboratory results Abnormal [facility] [facility] Phone: Potassium [Moles/Vol] 3.8 mmol/L 3.7 - 5.3 mmol/L [employer] Phone: Protein [Mass/Vol] 7.4 g/dL 6.4 - 8.3 g/dL [employer] Phone: Sodium [Moles/Vol] 141 mmol/L 135 - 144 mmol/L [employer] Phone: Urea nitrogen [Mass/Vol] 22 mg/dL 8 - 23 mg/dL [facility] Phone: Lipid PanelOrdered By: Reagan Givens on 07-07-2019 Cholesterol [Mass/Vol] 169 mg/dL <200 [facility] [facility] Phone: Comment on above: Cholesterol Guidelines: <200 Desirable 200-240 Borderline >240 Undesirable Cholesterol in HDL [Mass/Vol] 54 mg/dL >40 [facility] [facility] Phone: Comment on above: HDL Guidelines: <40 Undesirable 40-59 Borderline >59 Desirable Cholesterol in LDL [Mass/Vol] 91 mg/dL 0 - 130 mg/dL [employer] Phone: Comment on above: LDL Guidelines: <100 Desirable 100-129 Near to/above Desirable 130-159 Borderline >159 Undesirable Direct (measured) LDL and calculated LDL are not interchangeable tests. Cholesterol.total/Cho lesterol in HDL [Mass ratio] 3.1 {ratio} <5 [facility] [facility] Phone: Triglyceride [Mass/Vol] 118 mg/dL <150 [employer] Phone: Comment on above: Triglyceride Guidelines: <150 Desirable 150-199 Borderline 200-499 High >499 Very high Based on AHA Guidelines for fasting triglyceride, March 2012. VLDL NOT REPORTED 1 - 30 mg/dL [facility] [facility] Phone: MagnesiumOrdered By: Reagan borja on 07-07-2019 Magnesium [Mass/Vol] 2.4 mg/dL 1.6 - 2 .6 mg/dL [facility] [facility] Phone: Patient Fasting?Ordered By: Reagan Givens on 07-07-2019 Patient Fasting? yes [facility] Phone: TSH with ReflexOrdered By: Jose Carlos Givens on 07-07-2019 TSH Qn 2.66 m[IU]/L [facility] Phone: Vitamin D 25 HydroxyOrdered By: Reagan Givens on 07-07-2019 Vit D, 25-Hydroxy 76.8 ng/mL 30 - 100 ng/mL [facility] [facility] Phone: Comment on above: Reference Range: Vitamin D status Range Deficiency <20 ng/mL Mild Deficiency 20-30 ng/mL Sufficiency 30-100 ng/mL Toxicity >100 ng/mL XR CHEST STANDARD (2 VW)Orde red By: Reagan Givens on 07-07-2019 Stable chest compare d to 05/30/2019. [facility] [facility] Phone: EXAM: XR CHEST (2 VW ) HISTORY: Reason for exam:->htn 73-year-old female. COMPARISON: Prior studies, most recent being a two-view chest 05/30/2019 TECHNIQUE: Two-view chest FINDINGS: Surgical clips right upper quadrant abdomen. Heart size normal. Lungs clear. Minimal degenerative change thoracic spine. [facility] Phone: Magdiel, Mhpn Incoming R adiant Results From [employer] - 07/07/2019 10:15 AM EST EXAM: XR CHEST (2 VW) HISTORY: Reason for exam:->htn 73-year-old female. COMPARISON: Prior studies, most recent being a two-view chest 05/30/2019 TECHNIQUE: Two-view chest FINDINGS: Surgical clips right upper quadrant abdomen. Heart size normal. Lungs clear. Minimal degenerative change thoracic spine. IMPRESSION: Stable chest compared to 05/30/2019. [facility] Work Phone: Clostridium Difficile Toxin/ AntigenOrdered By: Roni Dahl on 04-23-2019 C DIFF AG + TOXIN Negative NEGATIVE [place], [place] Comment on above: No C. difficile anti gen and Toxin Detected. Specimen Description .FECES [facility] [place] CNOVon 03-10-2018 CNOV Office Visit (SPNSMN) MARY JANE RIOS ([id number]) 1945 [facility] Time Provider Department03/10/18 9:55 AM ANDREWS FISH SPNSMN During your visit today, we recorded the following information about you: Pulse Respiration Blood pressure Weight 69/minute 18/minute 130/77 102.1 kg Height 1.626 Jamaica Fish MD 03/10/2018 10:50 AM [facility]ly [facility] SURGERY OUTPATIENT CONSULTSERVICE DATE: 03/10/2018PCP: MARTINEZ Anne PROVIDER:Lanie Prince, [id number] [facility] [id number] requested for an opinion regarding the evaluation [...] : 10:44 AM PAGER:Referring Provider: LANIE PRINCE [[id number]]Allergies As of Date: 03/10/2018 Noted Allergy ReactionGLUTEN FLOUR 03/10/2018 8 - GI Upset 9 - ItchingLEXAPRO (ESCITALOPRAM OXALATE) 08/19/2007 9 - ItchingMORPHINE 07/04/2007SULFA (SULFONAMIDE ANTIBIOTICS) 07/04/2007Date Reviewed: 03/10/2018Reviewed by: Alanna Chang Ma - Fully AssessedReason for Visit: New Patient [172]Primary Visit Diagnosis:Degenerative scoliosis [M41.9]Order(s):XR LUMBAR LIMITED 2V AP/LAT [[id number]] Order #: [id number] FUTUREPrescriptions as of 03/10/2018 Sig: ASPIRIN 81 [...] by ANDREWS FISH MD on 03/10/18 Normal [facility] PROGRESSon 03-10-2018 Protein mass conc HNO ID: [id number] thor: Katelin Hollingsworth RtService: (none)Author Type: (none)Type: Progress NotesFiled: 03/10/2018 11:05 AMNote Text: Radiology Service Progress NotePATIENT NAME: Mary Jane AthyMRN: [id number] OF SERVICE: March 10, 2018TIME: 11:04 AMPATIENT IDENTITY VERIFICATION COMPLETED USING TWO (2) METHODS: Patientconfirmed name verbally and Date of .PATIENT GENDER DATA: Female. status: : NoBreastfeeding status: NO.PATIENT RELEVANT IMPLANT DATA REVIEWED: Not ApplicableRADIOLOGY DEPARTMENT: General X-ray: Exam(s) Completed: Spine X-Ray(s):Lumbar AP / LAT / [id number] IV DATA: Not applicableSIGNED BY: Katelin Hollingsworth RtSeptember 2017 11:04 AM Normal [facility] Protein mass conc HNO ID: [id number] thor: Andrews BarriosageService: (none)Author Type: PhysicianType: Progress NotesFiled: 03/10/2018 10:50 AMNote Text:SPINE SURGERY OUTPATIENT CONSULTSERVICE DATE: 03/10/2018PCP: Roni Motta MDREFERRING PROVIDER:Lanie Prince, [id number] [id number] requested for an opinion regarding the evaluation [...] 10, 2018 : 10:44 AM PAGER: Normal [facility] XR LUMBAR 2V AP/LATon 2017 XR LUMBAR [...] lordosis, grade 1 spondylolisthesis of L4 upon [id number] bodies: Normal in height. No vertebral fracture.Spine [...] STEIN MD on Mar 10 2018 11:23AM [id number] Normal [facility] Vital Signs Date Time Vital Sign Value Performing Clinician Facility 02-05-2025 09:34-0400 Body mass index (BMI) [Ratio] 36.73 kg/m2 Egorges Barger PA-C Work Phone: [facility] 02-05-2025 09:34-0400 Body temperature 98.49 [degF] Georges Barger PA-C Work Phone: [facility] 02-05-2025 09:34-0400 Body weight 97.07 kg Georges Barger PA-C Work Phone: [facility] 02-05-2025 09:34-0400 Diastolic blood pressure 65 mm[Hg] Georges Barger PA-C Work Phone: [facility] 02-05-2025 09:34-0400 Heart rate 76 /min Georges Barger PA-C Work Phone: [facility] 02-05-2025 09:34-0400 Respiratory rate 16 /min Georges Barger PA-C Work Phone: [facility] 02-05-2025 09:34-0400 SaO2% (BldA) [Mass fraction] 97 % Georges Barger PA-C Work Phone: [facility] 02-05-2025 09:34-0400 Systolic blood pressure 136 mm[Hg] Georges Barger PA-C Work Phone: [facility] 01-15-2025 09:17-0400 Body mass index (BMI) [Ratio] 36.39 kg/m2 Christian Lamport PA-C Work Phone: [facility] 01-15-2025 09:17-0400 Body temperature 97.3 [degF] Christian Lamport PA-C Work Phone: [facility] 01-15-2025 09:17-0400 Body weight 96.16 kg Christian Lamport PA-C Work Phone: [facility] 01-15-2025 09:17-0400 Diastolic blood pressure 80 mm[Hg] Christian Lamport PA-C Work Phone: [facility] 01-15-2025 09:17-0400 Heart rate 72 /min Christian Lamport PA-C Work Phone: [facility] 01-15-2025 09:17-0400 Respiratory rate 16 /min Christian Plattort PA-C Work Phone: [facility] 01-15-2025 09:17-0400 SaO2% (BldA) [Mass fraction] 98 % Christian Lamport PA-C Work Phone: [facility] 01-15-2025 09:17-0400 Systolic blood pressure 133 mm[Hg] Christian Plattort PA-C Work Phone: [facility] 11-26-2024 09:21-0400 Body height 163.8 cm Christopher Bohach DPM Work Phone: [facility] 11-26-2024 09:21-0400 Body mass index (BMI) [Ratio] 35.83 kg/m2 Christopher Bohach DPM Work Phone: [facility] 11-26-2024 09:21-0400 Body weight 96.16 kg Christopher Bohach DPM Work Phone: [facility] 11-26-2024 09:21-0400 Diastolic blood pressure 73 mm[Hg] Christopher Bohach DPM Work Phone: [facility] 11-26-2024 09:21-0400 Heart rate 75 /min Christopher Bohach DPM Work Phone: [facility] 11-26-2024 09:21-0400 Systolic blood pressure 140 mm[Hg] Christopher Bohach DPM Work Phone: [facility] 08-17-2024 13:49-0500 Body height 163.8 cm Christopher Bohach DPM Work Phone: [facility] 08-17-2024 13:49-0500 Body mass index (BMI) [Ratio] 35.83 kg/m2 Christopher Bohach DPM Work Phone: [facility] 08-17-2024 13:49-0500 Body weight 96.16 kg Christopher Bohach DPM Work Phone: [facility] 08-17-2024 13:49-0500 Diastolic blood pressure 75 mm[Hg] Lexy Canales DPM Work Phone: [facility] 08-17-2024 13:49-0500 Heart rate 70 /min Lexy Canales DPM Work Phone: [facility] 08-17-2024 13:49-0500 Respiratory rate 18 /min Lexy Canales DPM Work Phone: [facility] 08-17-2024 13:49-0500 Systolic blood pressure 127 mm[Hg] Lexy Canales DPM Work Phone: [facility] 07-10-2024 06:34-0500 Body height 162.6 cm Lexy Tapia MD [facility] 07-10-2024 06:34-0500 Body mass index (BMI) [Ratio] 36.39 kg/m2 Lexy Tapia MD Work Phone: [facility] 07-10-2024 06:34-0500 Body weight 96.16 kg Lexy Tapia MD Work Phone: [facility] 07-10-2024 06:30-0500 Body temperature 98.29 [degF] Lexy Tapia MD Work Phone: [facility] 07-10-2024 06:30-0500 Diastolic blood pressure 59 mm[Hg] Lexy Tapia MD [facility] Phone: [facility] 07-10-2024 06:30-0500 Heart rate 74 /min Lexy Tapia MD [facility] 07-10-2024 06:30-0500 Respiratory rate 17 /min Lexy Tapia MD [facility] Phone[facility] 07-10-2024 06:30-0500 SaO2% (BldA) [Mass fraction] 98 % Lexy Tapia MD Work Phone: [facility] [employer] 07-10-2024 06:30-0500 Systolic blood pressure 133 mm[Hg] Lexy Tapia MD Work Phone: [facility] [employer] 06-24-2024 18:05-0500 SaO2% (BldA) [Mass fraction] 96 % Monster Mei MD Work Phone: [facility] [employer] 06-24-2024 18:00-0500 Diastolic blood pressure 73 mm[Hg] Monster Mei MD Work Phone: [facility] [employer] 06-24-2024 18:00-0500 Systolic blood pressure 158 mm[Hg] Monster Mei MD Work Phone: [facility] [employer] 06-24-2024 17:25-0500 Body height 162.6 cm Monster Mei MD Work Phone: [facility] [employer] 06-24-2024 17:25-0500 Body mass index (BMI) [Ratio] 36.39 kg/m2 Monster Mei MD Work Phone: [facility] [employer] 06-24-2024 17:25-0500 Body temperature 99.7 [degF] Monster Mei MD Work Phone: [facility] [employer] 06-24-2024 17:25-0500 Body weight 96.16 kg Monster Mei MD Work Phone: [facility] [employer] 06-24-2024 17:25-0500 Heart rate 75 /min Monster Mei MD Work Phone: [facility] [employer] 06-24-2024 17:25-0500 Respiratory rate 19 /min Monster Mei MD Work Phone: [facility] [employer] 11-14-2023 22:17-0400 Diastolic blood pressure 85 mm[Hg] Jessica Farrar MD Work Phone: [employer] 11-14-2023 22:17-0400 Heart rate 60 /min Jessica Farrar MD Work Phone: [facility] [employer] 11-14-2023 22:17-0400 Respiratory rate 17 /min Jessica Farrar MD Work Phone: [facility] [employer] 11-14-2023 22:17-0400 SaO2% (BldA) [Mass fraction] 96 % Jessica Farrar MD Work Phone: [facility] [employer] 11-14-2023 22:17-0400 Systolic blood pressure 122 mm[Hg] Jessica Farrar MD Work Phone: [facility] [employer] [employer] 11-14-2023 18:48-0400 Body temperature 98.01 [degF] Jessica Farrar MD Work Phone: [facility] [employer] 11-14-2023 18:42-0400 Body height 162.6 cm Jessica Farrar MD Work Phone: [facility] [employer] 11-14-2023 18:42-0400 Body mass index (BMI) [Ratio] 37.08 kg/m2 Jessica Farrar MD Work Phone: [facility] [employer] 11-14-2023 18:42-0400 Body weight 97.98 kg Jessica Farrar MD Work Phone: [facility] [employer] [employer] 10-23-2023 12:23-0400 Heart rate 79 /min Lexy Tapia MD Work Phone: [facility] [employer] 10-23-2023 12:23-0400 Respiratory rate 16 /min Lexy Tapia MD Work Phone: [facility] [employer] 10-23-2023 12:23-0400 SaO2% (BldA) [Mass fraction] 97 % Lexy Tapia MD Work Phone: [facility] [employer] 10-23-2023 12:13-0400 Diastolic blood pressure 65 mm[Hg] Lexy Tapia MD Work Phone: [facility] [employer] 10-23-2023 12:13-0400 Systolic blood pressure 100 mm[Hg] Lexy Tapia MD Work Phone: [facility] [facility] 10-23-2023 09:46-0400 Body height 160 cm Lexy Tapia MD Work Phone: [facility] [facility] 10-23-2023 09:46-0400 Body mass index (BMI) [Ratio] 38.09 kg/m2 Lexy Tapia MD Work Phone: [facility] [facility] 10-23-2023 09:46-0400 Body temperature 98.1 [degF] Lexy Tapia MD Work Phone: [facility] [facility] 10-23-2023 09:46-0400 Body weight 97.52 kg Lexy Tapia MD Work Phone: [facility] 09-16-2023 15:15-0400 Diastolic blood pressure 67 mm[Hg] Ricardo Sarmini [facility] 09-16-2023 15:15-0400 Heart rate 53 /min Ricardo Sarmini [facility] 09-16-2023 15:15-0400 Respiratory rate 14 /min Ricardo Sarmini [facility] 09-16-2023 15:15-0400 Systolic blood pressure 148 mm[Hg] Ricardo Sarmini [facility] 09-16-2023 15:00-0400 Diastolic blood pressure 81 mm[Hg] Ricardo Sarmini [facility] 09-16-2023 15:00-0400 Heart rate 54 /min Ricardo Sarmini [facility] 09-16-2023 15:00-0400 Systolic blood pressure 153 mm[Hg] Ricardo Sarmini [facility] 09-16-2023 14:55-0400 Diastolic blood pressure 89 mm[Hg] Ricardo Sarmini [facility] 09-16-2023 14:55-0400 Heart rate 60 /min Ricardo Sarmini [facility] 09-16-2023 14:55-0400 Respiratory rate 20 /min Ricardo Sarmini [facility] 09-16-2023 14:55-0400 SaO2% (BldA) [Mass fraction] 100 % Ricardo Sarmini [facility] 09-16-2023 14:55-0400 Systolic blood pressure 135 mm[Hg] Ricardo Sarmini [facility] 09-16-2023 14:44-0400 Body temperature 96.8 [degF] Ricardo Sarmini [facility] 09-16-2023 14:35-0400 Respiratory rate 12 /min Ricardo Sarmini [facility] 09-16-2023 14:25-0400 Respiratory rate 12 /min Ricardo Sarmini [facility] 09-16-2023 14:15-0400 Respiratory rate 12 /min Ricardo Sarmini [facility] 09-16-2023 13:14-0400 Blood Pressure Location Ricardo Sarmini [facility] 09-16-2023 13:14-0400 Body temperature 96.8 [degF] Ricardo Sarmini [facility] 07-01-2023 15:32-0500 Body height 160 cm Monster Mei MD Work Phone: [facility] [employer] 07-01-2023 15:32-0500 Body mass index (BMI) [Ratio] 36.49 kg/m2 Monster Mei MD Work Phone: [facility] [employer] 07-01-2023 15:32-0500 Body temperature 98.91 [degF] Monster Mei MD Work Phone: [facility] [employer] 07-01-2023 15:32-0500 Body weight 93.44 kg Monster Mei MD Work Phone: [facility] [employer] 07-01-2023 15:32-0500 Diastolic blood pressure 70 mm[Hg] Monster Mei MD Work Phone: [facility] [employer] 07-01-2023 15:32-0500 Heart rate 80 /min Monster Mei MD Work Phone: [facility] [employer] 07-01-2023 15:32-0500 Respiratory rate 20 /min Monster Mei MD Work Phone: [facility] [employer] 07-01-2023 15:32-0500 SaO2% (BldA) [Mass fraction] 97 % Monster Mei MD Work Phone: [facility] [employer] 07-01-2023 15:32-0500 Systolic blood pressure 138 mm[Hg] Monster Mei MD Work Phone: [facility] [employer] 05-02-2023 08:55-0400 Body height 162.6 cm Grayson Hutchinson Jr., DO Work Phone: [facility] 05-02-2023 08:55-0400 Body mass index (BMI) [Ratio] 36.46 kg/m2 Grayson Hutchinson Jr., DO Work Phone: [facility] 05-02-2023 08:55-0400 Body temperature 97.7 [degF] Grayson Hutchinson Jr., DO Work Phone: [facility] 05-02-2023 08:55-0400 Body weight 96.34 kg Grayson Hutchinson Jr., DO Work Phone: [facility] 05-02-2023 08:55-0400 Diastolic blood pressure 82 mm[Hg] Grayson Hutchinson Jr., DO Work Phone: [facility] 05-02-2023 08:55-0400 Heart rate 72 /min Grayson Hutchinson Jr., DO Work Phone: [facility] 05-02-2023 08:55-0400 Systolic blood pressure 150 mm[Hg] Grayson Hutchinson Jr., DO Work Phone: [facility] 03-19-2023 08:55-0400 Diastolic blood pressure 73 mm[Hg] MD Roni Dahl Work Phone: [facility] 03-19-2023 08:55-0400 Heart rate 63 /min MD Roni Dahl Work Phone: [facility] 03-19-2023 08:55-0400 Respiratory rate 16 /min MD Roni Dahl Work Phone: [facility] 03-19-2023 08:55-0400 SaO2% (BldA) [Mass fraction] 95 % MD Roni Dahl Work Phone: [facility] 03-19-2023 08:55-0400 Systolic blood pressure 141 mm[Hg] MD Roni Dahl Work Phone: [facility] 03-19-2023 08:15-0400 Inhaled oxygen flow rate 3 L/min MD Roni Dahl Work Phone: [facility] 03-19-2023 07:19-0400 Body height 160.02 cm MD Roni Dahl Work Phone: [facility] 03-19-2023 07:19-0400 Body weight 96.61 kg MD Roni Dahl Work Phone: [facility] 03-07-2023 09:20-0400 Body height Mukul Wilson Other [employer] Other 03-07-2023 09:20-0400 Body mass index (BMI) [Ratio] 35.99 kg/m2 Mukul Wilson Other [employer] Other 03-07-2023 09:20-0400 Body weight 96.62 kg Mukul Wilson Other [employer] Other 03-07-2023 09:20-0400 Diastolic blood pressure 80 mm[Hg] Mukul Steve Other [employer] Other 03-07-2023 09:20-0400 Systolic blood pressure 152 mm[Hg] Mukul Wilson Other [employer] Other 03-01-2023 12:05-0400 Body height 162.56 cm MD Roni Dahl Work Phone: [facility] 03-01-2023 12:05-0400 Body temperature 98.6 [degF] MD Roni Dahl Work Phone: [facility] 03-01-2023 12:05-0400 Body weight 96.61 kg MD Roni Dahl Work Phone: [facility] 03-01-2023 12:05-0400 Diastolic blood pressure 74 mm[Hg] MD Roni Dahl Work Phone: [facility] 03-01-2023 12:05-0400 Heart rate 59 /min MD Roni Dahl Work Phone: [facility] 03-01-2023 12:05-0400 Respiratory rate 20 /min MD Roni Dahl Work Phone: [facility] 03-01-2023 12:05-0400 SaO2% (BldA) [Mass fraction] 96 % MD Roni Dahl Work Phone: [facility] 03-01-2023 12:05-0400 Systolic blood pressure 143 mm[Hg] MD Roni Dahl Work Phone: [facility] 02-28-2023 12:51-0400 Blood Pressure Location Ricardo Sarmini [facility] 02-28-2023 12:51-0400 Diastolic blood pressure 92 mm[Hg] Ricardo Sarmini [facility] 02-28-2023 12:51-0400 Heart rate 64 /min Ricardo Sarmini [facility] 02-28-2023 12:51-0400 Respiratory rate 16 /min Ricardo Sarmini [facility] 02-28-2023 12:51-0400 SaO2% (BldA) [Mass fraction] 98 % Ricardo Sarmini [facility] 02-28-2023 12:51-0400 Systolic blood pressure 135 mm[Hg] Ricardo Sarmini [facility] 02-08-2023 14:05-0400 Body temperature 98.1 [degF] Roni Dahl MD Work Phone: [facility] [facility] [employer] 02-08-2023 14:05-0400 Diastolic blood pressure 63 mm[Hg] Roni Dahl MD Work Phone: [facility] [facility] 02-08-2023 14:05-0400 Heart rate 59 /min Roni Dahl MD Work Phone: [employer] 02-08-2023 14:05-0400 Respiratory rate 13 /min Roni Dahl MD Work Phone: [facility] [employer] 02-08-2023 14:05-0400 SaO2% (BldA) [Mass fraction] 97 % Roni Dahl MD Work Phone: [facility] [employer] 02-08-2023 14:05-0400 Systolic blood pressure 143 mm[Hg] Roni Dahl MD Work Phone: [facility] [employer] 01-30-2023 15:30-0400 Body temperature 98.7 [degF] Tara Patel Other [employer] Other 01-30-2023 15:30-0400 Body weight 99.79 kg Tara Patel Other [employer] Other 01-30-2023 15:30-0400 Diastolic blood pressure 70 mm[Hg] Tara Patel Other [employer] Other 01-30-2023 15:30-0400 Respiratory rate 20 /min Tara Patel Other [employer] Other 01-30-2023 15:30-0400 SaO2% (BldA) [Mass fraction] 98 % Tara Patel Other [employer] Other 01-30-2023 15:30-0400 Systolic blood pressure 122 mm[Hg] Tara Patel Other [employer] Other 11-25-2022 12:00-0400 Diastolic blood pressure 75 mm[Hg] Salomon Juares MD Work Phone: [employer] 11-25-2022 12:00-0400 SaO2% (BldA) [Mass fraction] 99 % Salomon Juares MD Work Phone: [facility] [employer] 11-25-2022 12:00-0400 Systolic blood pressure 140 mm[Hg] Salomon Juares MD Work Phone: [facility] [employer] 11-25-2022 10:30-0400 Heart rate 59 /min Salomon Juares MD Work Phone: [facility] [employer] 11-25-2022 10:30-0400 Respiratory rate 18 /min Salomon Juares MD Work Phone: [facility] [employer] 11-25-2022 10:05-0400 Body temperature 97.9 [degF] Salomon Juares MD Work Phone: [facility] [employer] 11-25-2022 10:04-0400 Body height 162.6 cm Salomon Juares MD Work Phone: [facility] [facility] 11-25-2022 10:04-0400 Body mass index (BMI) [Ratio] 38.16 kg/m2 Salomon Juares MD Work Phone: [facility] [facility] 11-25-2022 10:04-0400 Body weight 100.83 kg Salomon Juares MD Work Phone: [facility] [facility] 08-28-2022 12:58-0500 Blood Pressure Location Donna Spencer [facility] 08-28-2022 12:58-0500 Body temperature 97.34 [degF] Donna Spencer [facility] 08-28-2022 12:58-0500 Diastolic blood pressure 72 mm[Hg] Donna Spencer [facility] 08-28-2022 12:58-0500 Heart rate 69 /min Donna Spencer [facility] 08-28-2022 12:58-0500 Systolic blood pressure 114 mm[Hg] Donna Doverz [facility] 07-26-2022 08:55-0500 Diastolic blood pressure 69 mm[Hg] Ferrari SALAM [facility] 07-26-2022 08:55-0500 Heart rate 54 /min Ferrari SALAM [facility] 07-26-2022 08:55-0500 Mean blood pressure 84 mm[Hg] Ferrari SALAM [facility] 07-26-2022 08:55-0500 Respiratory rate 13 /min Ferrari SALAM [facility] 07-26-2022 08:55-0500 SaO2% (BldA) [Mass fraction] 97 % Ferrari SALAM [facility] 07-26-2022 08:55-0500 Systolic blood pressure 114 mm[Hg] Ferrari SALAM [facility] 07-26-2022 08:35-0500 Diastolic blood pressure 71 mm[Hg] Ferrari SALAM [facility] 07-26-2022 08:35-0500 Heart rate 55 /min Ferrari SALAM [facility] 07-26-2022 08:35-0500 Mean blood pressure 84 mm[Hg] Ferrari SALAM [facility] 07-26-2022 08:35-0500 Respiratory rate 17 /min Ferrari SALAM [facility] 07-26-2022 08:35-0500 SaO2% (BldA) [Mass fraction] 100 % Ferrari SALAM [facility] 07-26-2022 08:35-0500 Systolic blood pressure 111 mm[Hg] Ferrari SALAM [facility] 07-26-2022 08:30-0500 Diastolic blood pressure 72 mm[Hg] Ferrari SALAM [facility] 07-26-2022 08:30-0500 Heart rate 71 /min Ferrari SALAM [facility] 07-26-2022 08:30-0500 Mean blood pressure 92 mm[Hg] Ferrari SALAM [facility] 07-26-2022 08:30-0500 Respiratory rate 21 /min Ferrari SALAM [facility] 07-26-2022 08:30-0500 SaO2% (BldA) [Mass fraction] 99 % Ferrari SALAM [facility] 07-26-2022 08:30-0500 Systolic blood pressure 131 mm[Hg] Ferrari SALAM [facility] 07-26-2022 08:20-0500 Body temperature 97.7 [degF] Ferrari SALAM [facility] 07-26-2022 07:14-0500 Blood Pressure Location Ferrari SALAM [facility] 07-26-2022 07:14-0500 Body temperature 97.16 [degF] Ferrari SALAM [facility] 07-17-2022 09:53-0500 Diastolic blood pressure 60 mm[Hg] MD Roni Dahl Work Phone: [facility] 07-17-2022 09:53-0500 Heart rate 60 /min MD Roni Dahl Work Phone: [facility] 07-17-2022 09:53-0500 Respiratory rate 16 /min MD Roni Dahl Work Phone: [facility] 07-17-2022 09:53-0500 SaO2% (BldA) [Mass fraction] 97 % MD Roni Dahl Work Phone: [facility] 07-17-2022 09:53-0500 Systolic blood pressure 120 mm[Hg] MD Roni Dahl Work Phone: [facility] 07-17-2022 09:06-0500 Inhaled oxygen flow rate 3 L/min MD Roni Dahl Work Phone: [facility] 07-17-2022 08:22-0500 Body height 162.56 cm MD Roni Dahl Work Phone: [facility] 07-17-2022 08:22-0500 Body weight 99.79 kg MD Roni Dahl Work Phone: [facility] 07-12-2022 09:28-0500 Body temperature 97.7 [degF] Alma Mao DO Work Phone: [employer] 07-12-2022 09:21-0500 Body height 162.6 cm Alma Mao DO Work Phone: [employer] 07-12-2022 09:21-0500 Body mass index (BMI) [Ratio] 37.93 kg/m2 Alma Mao DO Work Phone: [employer] 07-12-2022 09:21-0500 Body weight 100.25 kg Alma Mao DO Work Phone: [employer] 07-12-2022 09:21-0500 Diastolic blood pressure 71 mm[Hg] Alma Mao DO Work Phone: [employer] 07-12-2022 09:21-0500 Heart rate 72 /min Alma Mao DO Work Phone: [employer] 07-12-2022 09:21-0500 Respiratory rate 18 /min Alma Mao DO Work Phone: [facility] 07-12-2022 09:21-0500 SaO2% (BldA) [Mass fraction] 98 % Alma Mao DO Work Phone: [facility] 07-12-2022 09:21-0500 Systolic blood pressure 128 mm[Hg] Alma Mao DO Work Phone: [facility] 07-10-2022 14:16-0500 Blood Pressure Location Donna Spencer [facility] 07-10-2022 14:16-0500 Body temperature 96.8 [degF] Donna Spencer [facility] 07-10-2022 14:16-0500 Diastolic blood pressure 80 mm[Hg] Donna Spencer [facility] 07-10-2022 14:16-0500 Heart rate 64 /min Donna Spencer [facility] 07-10-2022 14:16-0500 Systolic blood pressure 119 mm[Hg] Donna Spencer [facility] 07-03-2022 11:10-0500 Diastolic blood pressure 73 mm[Hg] MD Roni Dahl Work Phone: [facility] 07-03-2022 11:10-0500 Heart rate 56 /min MD Roni Dahl Work Phone: [facility] 07-03-2022 11:10-0500 Respiratory rate 20 /min MD Roni Dahl Work Phone: [facility] 07-03-2022 11:10-0500 SaO2% (BldA) [Mass fraction] 97 % MD Roni Dahl Work Phone: [facility] 07-03-2022 11:10-0500 Systolic blood pressure 136 mm[Hg] MD Roni Dahl Work Phone: [facility] 07-03-2022 10:28-0500 Inhaled oxygen flow rate 3 L/min MD Roni Dahl Work Phone: [facility] 07-03-2022 09:32-0500 Body height 162.56 cm MD Roni Dahl Work Phone: [facility] 07-03-2022 09:32-0500 Body weight 99.79 kg MD Roni Dahl Work Phone: [facility] 05-29-2022 10:13-0500 Diastolic blood pressure 72 mm[Hg] MD Roni Dahl Work Phone: [facility] 05-29-2022 10:13-0500 Heart rate 62 /min MD Roni Dahl Work Phone: [facility] 05-29-2022 10:13-0500 Respiratory rate 20 /min MD Roni Dahl Work Phone: [facility] 05-29-2022 10:13-0500 SaO2% (BldA) [Mass fraction] 97 % MD Roni Dahl Work Phone: [facility] 05-29-2022 10:13-0500 Systolic blood pressure 139 mm[Hg] MD Roni Dahl Work Phone: [facility] 05-29-2022 09:23-0500 Inhaled oxygen flow rate 3 L/min MD Roni Dahl Work Phone: [facility] 05-29-2022 08:38-0500 Body height 162.56 cm MD Roni Dahl Work Phone: [facility] 05-29-2022 08:38-0500 Body weight 100.24 kg MD Roni Dahl Work Phone: [facility] 04-09-2022 11:15-0400 Body weight 101.15 kg Yanelis Garcia Other [facility] [employer] Other 03-27-2022 09:14-0400 Diastolic blood pressure 62 mm[Hg] MD Roni Dahl Work Phone: [facility] 03-27-2022 09:14-0400 Heart rate 57 /min MD Roni Dahl Work Phone: [facility] 03-27-2022 09:14-0400 Respiratory rate 16 /min MD Roni Dahl Work Phone: [facility] 03-27-2022 09:14-0400 SaO2% (BldA) [Mass fraction] 96 % MD Roni Dahl Work Phone: [facility] 03-27-2022 09:14-0400 Systolic blood pressure 121 mm[Hg] MD Roni Dahl Work Phone: [facility] 03-27-2022 08:36-0400 Inhaled oxygen flow rate 3 L/min MD Roni Dahl Work Phone: [facility] 03-27-2022 07:55-0400 Body height 165.1 cm MD Roni Dahl Work Phone: [facility] 03-27-2022 07:55-0400 Body weight 100.24 kg MD Roni Dahl Work Phone: [facility] 10-14-2021 11:07-0400 Body mass index (BMI) [Ratio] 38.77 kg/m2 Lexy Tapia MD Work Phone: [facility] 10-14-2021 11:07-0400 Body temperature 98.2 [degF] Lexy Tapia MD Work Phone: [facility] 10-14-2021 11:07-0400 Body weight 105.69 kg Lexy Tapia MD Work Phone: [facility] 10-14-2021 11:07-0400 Diastolic blood pressure 73 mm[Hg] Lexy Tapia MD Work Phone: [facility] 10-14-2021 11:07-0400 Heart rate 67 /min Lexy Tapia MD Work Phone: [facility] 10-14-2021 11:07-0400 Respiratory rate 16 /min Lexy Tapia MD Work Phone: [facility] 10-14-2021 11:07-0400 SaO2% (BldA) [Mass fraction] 98 % Lexy Tapia MD Work Phone: [facility] 10-14-2021 11:07-0400 Systolic blood pressure 147 mm[Hg] Lexy Tapia MD Work Phone: [facility] 11-27-2020 14:00-0400 Respiratory rate 18 /min Darryl Sandoval MD Work Phone: [facility] Work Phone: 11-27-2020 09:32-0400 SaO2% (BldA) [Mass fraction] 96 % Darryl Sandoval MD Work Phone: [facility] Work Phone: 11-27-2020 09:31-0400 Body temperature 98.1 [degF] Darryl Sandoval MD Work Phone: [facility] Work Phone: 11-27-2020 09:31-0400 Diastolic blood pressure 78 mm[Hg] Darryl Sandoval MD Work Phone: [facility] Work Phone: 11-27-2020 09:31-0400 Heart rate 78 /min Darryl Sandoval MD Work Phone: [facility] Work Phone: 11-27-2020 09:31-0400 Systolic blood pressure 139 mm[Hg] Darryl Sandoval MD Work Phone: [facility] Work Phone: 11-18-2020 09:19-0400 Diastolic blood pressure 57 mm[Hg] Naida Grissom MD Work Phone: [facility] Work Phone: 11-18-2020 09:19-0400 SaO2% (BldA) [Mass fraction] 96 % Naida Grissom MD Work Phone: [facility] Work Phone: 11-18-2020 09:19-0400 Systolic blood pressure 118 mm[Hg] Naida Grissom MD Work Phone: [facility] Work Phone: 11-18-2020 06:45-0400 Body height 165.1 cm Naida Grissom MD Work Phone: [facility] Work Phone: 11-18-2020 06:45-0400 Body mass index (BMI) [Ratio] 37.11 kg/m2 Naida Grissom MD Work Phone: [facility] Work Phone: 11-18-2020 06:45-0400 Body temperature 99.19 [degF] Naida Grissom MD Work Phone: [facility] Work Phone: 11-18-2020 06:45-0400 Body weight 101.15 kg Naida Grissom MD Work Phone: [facility] Work Phone: 11-18-2020 06:45-0400 Heart rate 87 /min Naida Grissom MD Work Phone: [facility] Work Phone: 11-18-2020 06:45-0400 Respiratory rate 18 /min Naida Grissom MD Work Phone: [facility] Work Phone: 03-31-2020 13:48-0400 BMI (Body Mass Index) 38.79 kg/m2 Warren Willie [facility] [place] 03-31-2020 13:48-0400 Body Temperature 98.49 [degF] [facility] [place] 03-31-2020 13:48-0400 [facility] [place] 03-31-2020 13:48-0400 BP Diastolic 99 mm[Hg] [facility] 03-31-2020 13:48-0400 BP Systolic 130 mm[Hg] [facility] 03-31-2020 13:48-0400 Height 162.6 cm [facility] 03-31-2020 13:48-0400 Pulse (Heart Rate) 61 /min [facility] 03-31-2020 13:48-0400 Pulse Oximetry 100 % [facility] 03-31-2020 13:48-0400 Respiratory Rate 18 /min [facility] 05-30-2019 06:47-0500 Pulse Oximetry 100 % [facility] 05-30-2019 06:34-0500 BP Diastolic 44 mm[Hg] [facility] 05-30-2019 06:34-0500 BP Systolic 128 mm[Hg] [facility] 05-30-2019 06:00-0500 BMI (Body Mass Index) 39.86 kg/m2 [facility] 05-30-2019 06:00-0500 Body Temperature 98.8 [degF] [facility] 05-30-2019 06:00-0500 Body weight 102.06 kg [facility] 05-30-2019 06:00-0500 Height 160 cm [facility] 05-30-2019 06:00-0500 Pulse (Heart Rate) 83 /min Warren Willie [facility], [place] 05-30-2019 06:00-0500 Respiratory Rate 20 /min Francescojuli Tapia [facility] [place] Encounters Encounter Date Encounter Type Care Provider Facility Start: 02-26-2025 End: 02-26-2025 Patient encounter procedure Obie Hylton MD -Lab [facility] Start: 02-26-2025 End: 02-26-2025 ambulatory Roni Dahl MD Work Phone: [facility] Work Phone: Start: 02-22-2025 End: 02-22-2025 ambulatory Trevon Harris MD Facility:[facility] [place] Start: 02-08-2025 End: 02-08-2025 ambulatory Trevon Harris MD Facility:[facility] Start: 02-05-2025 End: 02-05-2025 Office outpatient visit 15 minutes Georges Barger PA-C Work Phone: [facility] Comment on above: Cough, unspecified t ype (Primary Dx); Sore throat; Nasal congestion Start: 02-05-2025 End: 02-09-2025 ambulatory RONI DAHL [facility] Start: 01-15-2025 End: 01-15-2025 Office outpatient new 30 minutes Christian Lucio PA-C Work Phone: [facility] Comment on above: Bacterial URI (Prima ry Dx); Dermatitis Start: 01-15-2025 End: 01-15-2025 ambulatory CHRISTIAN LUCIO [facility] Start: 12-22-2024 End: 12-22-2024 ambulatory JOHN PAUL [facility] Start: 12-22-2024 End: 12-22-2024 Subsequent hospital visit by physician Roni Dahl MD Work Phone: [facility] Comment on above: Gross hematuria [...] encounter procedure Roni Dahl MD Work Phone: [facility] [address] Work Phone: Start: 09-10-2024 End: 09-10-2024 ambulatory Roni Dahl MD Work Phone: [facility] Work Phone: Start: 09-07-2024 End: 09-07-2024 ambulatory Trevon Harris MD Facility:[facility] Start: 08-28-2024 End: 08-28-2024 [facility] Start: 08-28-2024 End: 08-28-2024 Subsequent hospital visit by physician Roni Dahl MD Work Phone: [facility] Comment on above: Essential hypertensi on; Palpitations; Hyperlipidemia, unspecified hyperlipidemia type; Hypothyroidism, unspecified type; Vitamin D deficiency disease Start: 08-27-2024 End: 08-27-2024 ambulatory [facility] Start: 08-27-2024 End: 08-27-2024 Subsequent hospital visit by physician Roni Dahl MD Work Phone: [facility] Comment on above: Mixed incontinence u rge and stress Start: 08-27-2024 End: 08-29-2024 [facility]ulatory [facility] Start: 08-27-2024 End: 08-29-2024 Subsequent hospital visit [facility] Additional [facility] RESPIRATORY THERAPY Comment on above: Essential hypertensi on; Palpitations; Hyperlipidemia, unspecified hyperlipidemia type; Hypothyroidism, unspecified type; Vitamin D deficiency disease Start: 08-24-2024 End: 08-24-2024 ambulatory Trevon Harris MD Facility:[facility] Start: 08-17-2024 End: 08-17-2024 Bamboo flowsheet Lexy Canales DPM Work Phone: [employer] [facility] Start: 08-17-2024 End: 08-17-2024 Bamboo flowsheet Lexy Canales DPM Work Phone: [facility] Start: 08-17-2024 End: 08-17-2024 Office outpatient new 30 minutes Lexy Canales DPM Work Phone: [facility] Comment on above: Grade 2 ankle sprain (Primary Dx); Pain in joint involving right ankle and foot; Right foot pain; Ankle instability, right Start: 08-17-2024 End: 08-17-2024 ambulatory LEXY CANALES Not Available Start: 08-11-2024 End: 08-11-2024 Patient encounter procedure Roni Dahl MD Work Phone: [facility] [address] Work Phone: Start: 08-11-2024 End: 08-11-2024 ambulatory Roni Dahl MD Work Phone: [facility] Work Phone: Start: 07-10-2024 End: 07-10-2024 Emergency department patient visit Lexy Tapia MD Work Phone: [facility] Comment on above: Sprain of right ankl e, unspecified ligament, initial encounter (Primary Dx) Start: 06-24-2024 End: 06-24-2024 Emergency department patient visit Monster Mei MD Work Phone: [facility] Comment on above: COVID-19 virus infec tion (Primary Dx) Start: 06-01-2024 End: 06-01-2024 ambulatory Trevon Harris MD Facility:[facility] Start: 05-18-2024 End: 05-18-2024 ambulatory Trevon Harris MD Facility:[facility] Start: 05-08-2024 End: 05-10-[address] [facility] Start: 05-08-2024 End: 05-10-2024 Subsequent hospital visit by physician [facility] Mammography Room [facility] Mammography Comment on above: Visit for screening mammogram Start: 04-20-2024 End: 04-20-2024 ambulatory Trevon Harris MD Facility:[facility] Start: 04-06-2024 End: 04-06-2024 ambulatory Roni Dahl MD Facility:[facility] Start: 03-23-2024 End: 03-23-2024 ambulatory Roni Dahl MD Facility:[facility] Start: 02-06-2024 End: 02-06-2024 ambulatory MD Roni Dahl Work Phone: [facility] Work Phone: Start: 02-06-2024 End: 02-06-2024 Patient encounter procedure MD Roni Dahl Work Phone: [facility] Work Phone: Start: 12-19-2023 End: 12-19-2023 ambulatory MD Roni Dahl Work Phone: [facility] Work Phone: Start: 12-19-2023 End: 12-19-2023 Patient encounter procedure MD Roni Dahl Work Phone: [facility] [address] Work Phone: Start: 12-12-2023 End: 12-12-2023 [facility] Start: 11-14-2023 End: 11-14-2023 Emergency department patient visit Jessica Farrar MD Work Phone: [facility] Comment on above: Paroxysmal atrial fi brillation (HCC) (Primary Dx) Start: 10-23-2023 End: 10-25-[address] [facility] Start: 10-23-2023 End: 10-23-2023 Emergency department patient visit Lexy Tapia MD Work Phone: [facility] Comment on above: New onset atrial fib rillation (HCC) (Primary Dx); Atrial fibrillation with RVR (HCC); History of chronic kidney disease; Symptoms of dehydration; Fluid level behind tympanic membrane of both ears; Acute pansinusitis, recurrence not specified; Nausea vomiting and diarrhea Start: 10-22-2023 End: 10-24-2023 [facility] Start: 10-01-2023 End: 10-01-2023 [facility] Start: 09-19-2023 End: 09-19-2023 ambulatory MD Roni Dahl Work Phone: [facility] Work Phone: Start: 09-19-2023 End: 09-19-2023 Patient encounter procedure MD Roni Dahl Work Phone: [facility] [address] Work Phone: Start: 09-16-2023 End: 09-16-2023 ambulatory Davion Olivares Facility:[facility] Start: 09-16-2023 End: 09-16-2023 Patient encounter procedure Davion Talal Kelly[facility] Start: 07-01-2023 End: 07-01-2023 Emergency department patient visit Monster Mei MD Work Phone: [facility] Comment on above: COVID-19 virus infec tion (Primary Dx) Start: 05-27-2023 End: 05-27-2023 ambulatory MD Roni Dahl Work Phone: [facility] Work Phone: Start: 05-27-2023 End: 05-27-2023 Patient encounter procedure MD Roni Dahl Work Phone: [facility] [address] Work Phone: Start: 05-02-2023 End: 05-06-2023 ambulatory MARY SUE [facility] Ambulatory Start: 05-02-2023 End: 05-02-2023 Clinical Support Mary Sue AuD Work Phone: [facility] Comment on above: Sensorineural hearin g loss, bilateral (Primary Dx); Hearing loss, unspecified hearing loss type, unspecified laterality Start: 05-02-2023 End: 05-02-2023 Office outpatient new 45 minutes Grayson Hutchinson DO Work Phone: [facility] Comment on above: Bruxism (teeth grind ing) (Primary Dx); Acute suppurative otitis media of left ear without spontaneous rupture of tympanic membrane, recurrence not specified; ROSETTE on CPAP; Hearing loss, unspecified hearing loss type, unspecified laterality Start: 04-11-2023 End: 04-11-2023 ambulatory XU MARTINEZ [facility] Start: 03-28-2023 End: 03-28-2023 ambulatory LANIE PRINCE [facility] Start: 03-19-2023 End: 03-19-2023 Admission to same day surgery center MD Roni Dahl Work Phone: [facility] Work Phone: Start: 03-19-2023 End: 03-19-2023 ambulatory MD oRni Dahl Work Phone: [facility] Work Phone: Start: 03-14-2023 End: 03-14-2023 ambulatory Yanelis Garcia Other [employer] Other Start: 03-14-2023 Office outpatient vi sit 25 minutes Yanelis Garcia [facility] [place] Start: 03-14-2023 Telephone encounter Yanelis Garcia [facility] Start: 03-13-2023 End: 03-15-2023 Subsequent hospital visit by physician Yanelis Guzman MD Work Phone: [facility] Ultrasound Comment on above: Renal cyst Start: 03-08-2023 End: 03-08-2023 ambulatory Mukul Wilson Other [employer] Other Start: 03-08-2023 Telephone encounter Mukul Wilson [facility] Start: 03-07-2023 Office outpatient ne w 30 minutes Mukul Wilson [facility] Start: 03-07-2023 End: 03-07-2023 ambulatory MD Roni Dahl Work Phone: [facility] Work Phone: Start: 03-07-2023 End: 03-07-2023 Patient encounter procedure MD Roni Dahl Work Phone: [facility]-XRay [facility] [place] Work Phone: Start: 03-01-2023 End: 03-01-2023 Emergency department patient visit MD Roni Dahl Work Phone: [facility]-Emergency Room Work Phone: Start: 02-28-2023 End: 02-28-2023 ambulatory Ricardo Talal Sarmini Facility:[facility] Start: 02-28-2023 End: 02-28-2023 Patient encounter procedure Ricardo Talal Sarmini [facility] Start: 02-27-2023 End: 03-01-2023 Subsequent hospital visit by physician Roni Dahl MD Work Phone: [facility] Radiology Start: 02-25-2023 End: 02-25-2023 ambulatory Yanelis Garcia Other [employer] Other Start: 02-25-2023 Telephone encounter Yanelis [facility] Start: 02-21-2023 End: 02-21-2023 ambulatory MD Roni Dahl Work Phone: [facility] Work Phone: Start: 02-21-2023 End: 02-21-2023 Patient encounter procedure MD Roni Dahl Work Phone: [facility] C[facility]-MRI Main [place] Work Phone: Start: 02-14-2023 End: 02-14-2023 ambulatory Yanelis Garcia Other [employer] Other Start: 02-14-2023 Telephone encounter [facility] [place] Start: 02-08-2023 End: 02-08-2023 Emergency department patient visit Roni Dahl MD Work Phone: [facility] ED Comment on above: 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, unspecified back pain laterality (Primary Dx) Start: 02-04-2023 End: 02-04-2023 ambulatory Yanelis Garcia Other [employer] Other Start: 02-04-2023 Telephone encounter Yan[facility]is [facility] Start: 01-30-2023 End: 01-30-2023 ambulatory Tara Patel Other [employer] Other Start: 01-30-2023 Office outpatient vi sit 25 minutes Tara Patel [facility] [address] Start: 11-25-2022 End: 11-25-2022 Emergency department patient visit Salomon Juares MD Work Phone: [facility] ED Comment on above: Non-recurrent acute suppurative otitis media of left ear without spontaneous rupture of tympanic membrane (Primary Dx); Acute nonintractable headache, unspecified headache type Start: 08-29-2022 End: 08-31-2022 Subsequent hospital visit [facility] physician [facility] Additional Xray At [facility] Radiology Comment on above: Essential hypertensi on; Palpitations; Hypothyroidism, unspecified type; Hyperlipidemia, unspecified hyperlipidemia type; Vitamin D deficiency disease Start: 08-28-2022 End: 08-28-2022 Patient encounter procedure Donna Spencer [facility] Start: 08-21-2022 End: 08-21-2022 ambulatory MD Roni Dahl Work Phone: [facility] Work Phone: Start: 08-21-2022 End: 08-21-2022 Patient encounter procedure MD Roni Dahl Work Phone: [facility] Ctr-Lab [address] Work Phone: Start: 07-31-2022 End: 07-31-2022 ambulatory Yanelis Garcia Other [employer] Other Start: 07-31-2022 Office outpatient vi sit 15 minutes Yanelis Garcia [facility] [place] Start: 07-31-2022 End: 07-31-2022 Subsequent hospital visit by physician Maria R Malhotra PT [facility] Comment on above: Arrived Start: 07-26-2022 End: 07-26-2022 Patient encounter procedure Vonda HERNANDEZ [facility] Start: 07-17-2022 (Procedure) Short Yanelis Garcia [facility] Start: 07-17-2022 End: 07-17-2022 Admission to same day surgery center MD Roni Dahl Work Phone: [facility] Work Phone: Start: 07-17-2022 End: 07-17-2022 ambulatory MD Roni Dahl Work Phone: [facility] Work Phone: Start: 07-12-2022 End: 07-12-2022 Emergency department patient visit Alma Mao Work Phone: [facility] ED Comment on above: Acute pharyngitis, u nspecified etiology (Primary Dx) Start: 07-10-2022 End: 07-10-2022 Patient encounter procedure Donna Spencer [facility] Start: 07-03-2022 (Procedure) Short Yanelis Garcia [facility] Start: 07-03-2022 End: 07-03-2022 Admission to same day surgery center MD Roni Dahl Work Phone: [facility] Work Phone: Start: 07-03-2022 End: 07-03-2022 ambulatory MD Roni Dahl Work Phone: [facility] Work Phone: Start: 06-26-2022 End: 06-26-2022 Patient encounter procedure Donna Spencer [facility] Start: 06-14-2022 End: 06-14-2022 Subsequent hospital visit by physician Maria R Malhotra PT [facility] Physical Therapy Comment on above: Arrived Start: 06-13-2022 End: 06-13-2022 ambulatory Yanelis Garcia Other [employer] Other Start: 06-13-2022 Office outpatient vi sit 25 minutes Yanelis Garcia [facility] [place] Start: 05-29-2022 (Procedure) Short Yanelis Gonzalesjuli [facility] OutPt Start: 05-29-2022 End: 05-29-2022 Admission to same day surgery center MD Roni Dahl Work Phone: [facility] Start: 05-29-2022 End: 05-29-2022 ambulatory MD Roni Dahl Work Phone: [facility] Work Phone: Start: 05-07-2022 End: 05-07-2022 ambulatory MD Roni Dahl Work Phone: [facility] Work Phone: Start: 05-07-2022 End: 05-07-2022 Patient encounter procedure MD Roni Dahl Work Phone: [facility] [address] Start: 05-02-2022 End: 05-02-2022 ambulatory Yanelis Rolonjuli Other [employer] Other Start: 05-02-2022 Office outpatient vi sit 25 minutes Yanelis Garcia [facility] [place] Start: 04-09-2022 End: 04-09-2022 ambulatory Yanelis Garcia Other [employer] Other Start: 04-09-2022 Office outpatient vi sit 25 minutes Yanelis Garcia [facility] [place] Start: 03-27-2022 End: 03-27-2022 Admission to same day surgery center MD Roin Dahl Work Phone: [facility] Start: 03-14-2022 End: 03-14-2022 Patient encounter procedure MD Roni Dahl Work Phone: [facility] [place] [facility] Start: 02-22-2022 End: 02-22-2022 Patient encounter procedure MD Roni Dahl Work Phone: [facility] [address] Start: 01-31-2022 End: 02-02-2022 Subsequent hospital visit by physician Rei Mammography Room [facility] Mammography Comment on above: Visit for screening mammogram Start: 12-07-2021 End: 12-07-2021 Patient encounter procedure MD Roni Dahl Work Phone: [facility] Start: 11-30-2021 End: 12-02-2021 Subsequent hospital visit by physician Rei Dig Rad 1 [facility] Radiology Comment on above: H/O repair of right rotator cuff Start: 11-30-2021 End: 12-02-2021 Subsequent hospital visit by physician Roni Dahl MD Work Phone: [facility] Radiology Start: 10-30-2021 End: 10-30-2021 Patient encounter procedure Donna Spencer [facility] Start: 10-26-2021 End: 10-26-2021 Patient encounter procedure Roni Dahl MD Work Phone: [facility] Start: 10-26-2021 End: 10-26-2021 Subsequent hospital visit by physician Roni Dahl MD Work Phone: [facility] Comment on above: Women's annual routi ne gynecological examination; Vaginal burning Start: 10-14-2021 End: 10-14-2021 Emergency department patient visit Lexy Tapia MD Work Phone: [facility] ED Comment on above: Acute cystitis with hematuria (Primary Dx); Vaginal yeast infection Start: 10-11-2021 End: 10-11-2021 Subsequent hospital visit by physician Zo Chen PT Work Phone: [facility] Comment on above: Arrived Start: 10-04-2021 End: 10-04-2021 Subsequent hospital visit by physician Zo Chen PT Work Phone: [facility] Comment on above: Arrived Start: [...] visit by physician Rei Additional Xray At [facility] Radiology Comment on above: History [...] physician Rei Dig Rad 1 [facility] Radiology Comment on above: Right shoulder pain, unspecified chronicity Start: 04-27-2021 End: 04-29-2021 Subsequent hospital visit by physician Roni Dahl MD Work Phone: [facility] Radiology Start: 01-20-2021 End: 01-22-2021 Subsequent hospital visit by physician Rei Mammography Room [facility] Mammography Comment on above: Screening mammogram, encounter for Start: 01-09-2021 End: 01-09-2021 Subsequent hospital visit by physician Roni Dahl MD Work Phone: [facility] Comment on above: Low hemoglobin Start: 12-09-2020 End: 12-09-2020 Subsequent hospital visit by physician Roni Dahl MD Work Phone: [facility] Comment on above: Low hemoglobin Start: 11-27-2020 End: 11-27-2020 Emergency department patient visit Darryl Sandoval MD Work Phone: [facility] ED Comment on above: Diarrhea, unspecifie d type (Primary Dx); General weakness; Urinary incontinence, unspecified type Start: 11-22-2020 End: 11-22-2020 Subsequent hospital visit by physician Roni Dahl MD Work Phone: [facility] Comment on above: Diarrhea of presumed infectious origin; Intractable vomiting with nausea, unspecified vomiting type Start: 11-18-2020 End: 11-18-2020 Emergency department patient visit Naida Grissom MD Work Phone: [facility] ED Comment on above: Nausea vomiting and diarrhea (Primary Dx) Start: 08-11-2020 End: 08-11-2020 Subsequent hospital visit by physician Roni Dahl [facility] Laboratory Comment on above: Essential hypertensi on; Palpitations; Hypothyroidism, unspecified type; Hyperlipidemia, unspecified hyperlipidemia type; Vitamin D deficiency disease Start: 08-09-2020 End: 08-09-2020 Subsequent hospital visit by physician Roni Dahl [facility] RES[facility]IRATORY THERAPY Comment on above: Essential hypertensi on; Palpitations; Hypothyroidism, unspecified type Start: 06-29-2020 End: 06-29-2020 Subsequent hospital visit by physician [facility] Covid Screening Schedule [facility] Covid Screening Comment on above: Acute recurrent pans inusitis; Fever, unspecified fever cause Start: 03-31-2020 End: 03-31-2020 Subsequent hospital visit by physician Roni Dahl [facility] Laboratory Comment on above: Viral illness; Exposure to COVID-19 virus Start: 03-31-2020 End: 03-31-2020 Emergency department patient visit Lexy Tapia Work Phone: [facility] ED Comment on above: General weakness (Pr imary Dx); YANNA (middle ear effusion), bilateral Start: 11-09-2019 End: 11-11-2019 Subsequent hospital visit by physician [facility] Mammography Room [facility] Mammography Comment on above: Visit for screening mammogram Start: 07-07-2019 End: 07-09-2019 Subsequent hospital visit by physician Roni Dahl MD Work Phone: [facility] RESPIRATORY THERAPY Comment on above: Essential hypertensi on; Pure hypercholesterolemia; Acquired hypothyroidism; Palpitations; Vitamin D deficiency disease Start: 05-30-2019 End: 05-30-2019 Emergency department patient visit Lexy Tapia Work Phone: [facility] ED Comment on above: Acute recurrent fron venkat sinusitis (Primary Dx); Acute middle ear effusion, bilateral Start: 04-23-2019 End: 04-23-2019 Subsequent hospital visit by physician Roni Dahl MD Work Phone: [facility] Comment on above: Diarrhea of presumed infectious origin Start: 03-10-2018 End: 03-10-2018 Patient encounter ANDREWS FISH [facility] Start: 03-10-2018 End: 03-11-2018 Patient encounter ANDREWS FISH [facility] Start: 06-20-2017 End: 06-21-2017 Ambulatory JAMISON OWENS Facility[facility] Procedures Date Procedure Procedure Detail Performing Clinician Start: 12-22-2024 Urnls dip stick/tablet reagent auto microscopy John Paul Clovis Bijan WEAVING INSTRUCTOR - METAL ENGINEERING PROCESS WORKER Work Phone: Start: 08-28-2024 Comprehensive metabolic panel [...] DTaP/Tdap/Td vaccine (2 - Td or Tdap) [facility] Start: 01-18-2026 Colon cancer screen colonoscopy Colon cancer screen colonoscopy [place], [place] Start: 01-18-2026 Screening for malignant neoplasm of colon Colon cancer screen colonoscopy [place], [place] Start: 12-23-2025 End: 12-23-2025 Patient encounter procedure 12/23/2025 8:30 AM EDT Office Visit [address] [place] [phone] John Paul Mayfield, WEAVING INSTRUCTOR - METAL ENGINEERING PROCESS WORKER [address] [place] [phone] 1Y f/u [facility] Comment on above: 1Y f/u Start: 08-28-2025 Lipid panel Lipids [facility] Start: 08-20-2025 Depression Monitoring Depression Monitoring [facility] Start: 05-08-2025 Screening for malignant neoplasm of breast Mammogram [facility] Start: 03-17-2025 End: 03-17-2025 Patient encounter procedure 03/17/2025 9:00 AM EDT Office Visit [facility] [address] [place] [phone] Reagan Givens MD [address] [place] [address] [facility] Start: 03-01-2025 Influenza vaccination Influenza Vaccine (#1) [facility] Start: 02-26-2025 Hemolytic complement CH50 level [facility] Start: 02-17-2025 End: 02-17-2025 Patient encounter procedure 02/17/2025 9:20 AM EDT Office Visit [facility] [address] [place] [phone] Roni Dahl MD [address] [place] [address] 6 mos - HTN, Hyperlipidemia, Hypothyroid, gerd, dysthymia [facility] Comment on above: 6 mos - HTN, Hyperlipidemia, Hypothyroid , gerd, dysthymia Start: 11-26-2024 End: 11-26-2024 Patient encounter procedure 11/26/2024 9:30 AM EDT Office Visit [facility] [address] [place] [phone] Lexy Canales DPM [address] [phone] Arrived [facility] Comment on above: Arrived Start: 11-17-2024 End: 11-17-[address] [facility] Comment on above: 1 year f/u, US prior-(make sure we have results, patient will be going out of town) 1 year f/u for blood in the urine, no testing prior per John Paul Start: 09-15-2024 End: 09-15-2024 Patient encounter procedure 09/15/2024 2:15 PM EDT Office Visit [facility] [address] [place] [phone] Lexy Canales DPM [address] [place] [address] [facility] Start: 08-31-2024 End: 08-31-2024 Patient encounter procedure 08/31/2024 9:00 AM EST Office Visit [facility] [address] [place] [phone] Reagan Givens MD [address] [place] [address] 1 year follow up labs ekg cxr [facility] Comment on above: 1 year follow up labs ekg cxr Start: 08-20-2024 Lipid panel Lipids [facility] [employer] Start: 08-17-2024 End: 08-17-2024 Patient encounter procedure 08/17/2024 2:00 PM EST Office Visit [facility] [address] [place] [phone] Lexy Canales, DPRobyn [address] [place] [address] Arrived [facility] Comment on above: Arrived Start: 08-13-2024 End: 08-13-2024 Patient encounter procedure 08/13/2024 10:00 AM EST Office Visit [facility] [address] [place] [phone] Roni Dahl MD [address] [place] [address] AWV - 6 mos - HTN, Hyperlipidemia, Hypothyroid, gerd, afib [facility] Comment on above: AWV - 6 mos - HTN, Hyperlipidemia, Hypot hyroid, gerd, afib Start: 08-11-2024 Hemolytic complement CH50 level [facility] Start: 08-06-2024 Depression Monitoring Depression Monitoring [facility] [employer] Start: 05-07-2024 End: 05-07-2024 Patient encounter procedure 05/07/2024 9:30 AM EST Office Visit [facility] [address] [place] [id number] Grayson Hutchinson Jr., DO [address] [place] [address] [facility] Start: 05-06-2024 Annual Wellness Visit (Medicare) Annual Wellness Visit (Medicare) [facility] [employer] Start: 05-06-2024 Depression Monitoring Depression Monitoring [facility] Start: 05-06-2024 Medicare Wellness Visit Medicare Wellness Visit [facility] Start: 03-23-2024 End: 03-23-2024 Patient encounter procedure 03/23/2024 11:00 AM EDT Office [address] [facility] [address] [place] [address] John Paul Mayfield, WEAVING INSTRUCTOR - METAL ENGINEERING PROCESS WORKER [address] [facility] [place] [address] 1 year f/u, [place] prior [facility] Comment on above: 1 year f/u, [place] prior Start: 03-20-2024 End: 03-20-2024 Patient encounter procedure 03/20/2024 11:00 AM EDT Office Visit [facility] [address] [place] [address] John Paul Mayfield, WEAVING INSTRUCTOR - METAL ENGINEERING PROCESS WORKER [address] [place] [address] 1 year f/u, [place] prior-(make sure we have results, patient will be going out of town) [facility] Comment on above: 1 year f/u, US prior-(make sure we have results, patient will be going out of town) Start: 03-18-2024 End: 03-18-2024 Patient encounter procedure 03/18/2024 1:00 PM EDT Appointment [facility] Ultrasound [address] [place] [address] epic/ sched w/ Anastasiya in office [facility] Comment on above: epic/ sched w/ Anastasiya in office Start: 03-01-2024 COVID-19 Vaccine ( season) COVID-19 Vaccine ( season) [facility] Start: 03-01-2024 COVID-19 Vaccine ( season) COVID-19 Vaccine ( season) [facility] Start: 02-11-2024 End: 02-11-2024 Patient encounter procedure 02/11/2024 8:00 AM EDT [facility] [address] [place] [phone] Roni Dahl MD [address] [place] [address] Appt Reason: Routine Existing Condition Follow Up [facility] Comment on above: Appt Reason: Routine Existing Condition Follow Up Start: 02-06-2024 Dual energy X-ray absorptiometry XR dexa axial skeleton [facility] Start: 02-06-2024 DXA Skeletal system.axial Views for bone density [facility] Start: 12-31-2023 Tetanus vaccination Tetanus: Every 10yrs [facility] Start: 12-19-[address] [facility] Start: 12-12-2023 End: 12-12-2023 Patient encounter procedure 12/12/2023 10:00 AM EDT Office Visit [facility] [address] [place] [address] Reagan Givens MD [address] [place] [address] 3 wk f/u ED tachycardia & event monitor [facility] Comment on above: 3 wk f/u ED tachycardia & event monitor Start: 11-14-2023 End: 11-14-2023 Patient encounter procedure 11/14/2023 10:45 AM EDT Procedure visit [facility] Urology [address] [facility] 2nd [place] [address] Glory Peña PAYenniC [address] [place] [address] [place] [address] urogram [facility] Urology Comment on above: cysto after CT urogram Start: 11-01-2023 Depression Monitoring Depression Monitoring [facility] Start: 03-21-[address] [facility] Start: 09-02-2023 End: 09-02-2023 Patient encounter procedure [facility] Comment on above: 1 yr f/u lab/ekg/ Start: 08-21-2023 Lipid panel Lipids [facility] [employer] Start: 08-06-2023 End: 08-06-2023 Patient encounter procedure 08/06/2023 8:40 AM EST [facility] [address] [place] [phone] Roni Dahl MD [address] [place] [address] 3 mos - Hyperlipidemia, depression, Hypothyroid, gerd, insomnia, sleep apnea, arthritis [facility] Comment on above: 3 mos - Hyperlipidemia, depression, Hypo thyroid, gerd, insomnia, sleep apnea, arthritis Start: 05-27-[address] [facility] Start: 05-09-2023 End: 05-09-2023 Patient encounter procedure 05/09/2023 11:30 AM EST Appointment [facility] [address] [phone] SELF REF/PT [facility] Comment on above: SELF REF/PT Start: 05-06-2023 End: 05-06-2023 Patient encounter procedure [facility] Comment on above: Return in about 6 months (around 05/03/20 23) for Hyperlipidemia, Hypothyroid, depression, gerd, arthritis and MEDICARE wellness Start: 05-04-2023 Annual Wellness Visit (AWV) Annual Wellness Visit (AWV) [facility] [employer] Start: 05-03-2023 Depression Monitoring Depression Monitoring [facility] [employer] Start: 05-03-2023 History and physical examination, annual for health maintenance Wellness Visit [facility] Start: 03-22-2023 End: 03-22-2023 [facility] Comment on above: 3 month f/u, US results Start: 03-20-2023 End: 03-20-2023 Patient encounter procedure 03/20/[address] [facility] Start: 03-19-2023 [facility] Start: 03-13-2023 End: 03-13-2023 Patient encounter procedure 03/13/2023 Appointment Radiology Yanelis Guzman MD [address] [place] [address] [facility] Ultrasound Start: 03-01-2023 COVID-19 Vaccine () COVID-19 Vaccine ( season) [facility] Start: 03-01-2023 Influenza vaccination Sequential Influenza Vaccine (#1) [facility] Start: 01-29-2023 Influenza vaccination Flu vaccine (#1) [facility] Start: 12-21-2022 End: 12-21-2022 Patient encounter procedure 12/21/[address] [facility] Start: 10-31-2022 End: 10-31-2022 Patient encounter procedure 10/31/2022 Office Visit Family Medicine Roni Dahl MD [address] [place], [place] [phone] [facility] Start: 09-05-2022 COVID-19 Vaccine (5 - Moderna series) COVID-19 Vaccine (5 - Moderna series) [facility] Start: 09-03-2022 End: 09-03-2022 Patient encounter procedure [facility] Start: 08-29-2022 Lipid panel [facility] Start: 08-29-2022 Thyroid stimulating hormone measurement [facility] Start: 08-21-2022 Bacteria identified in Urine by Culture [facility] Start: 08-21-2022 Hemolytic complement CH50 level [facility] Start: 07-31-2022 End: 07-31-2022 Patient encounter procedure 07/31/2022 Appointment Physical Therapy Maria R Malhotra, PT [facility] Start: 07-17-2022 [facility] Start: 07-03-2022 [facility] Start: 07-03-2022 Radiofrequency destruction of peripheral nerve DH Nerve Radio Frequency (Left) [facility] Start: 05-29-2022 [facility] Start: 05-03-2022 Annual Wellness Visit (AWV) Annual Wellness Visit (AWV) [facility] Start: 05-03-2022 End: 05-03-2022 Patient encounter procedure 05/03/2022 Office Visit Family Medicine Roni Dahl MD [address] [place] [id number] [facility] Start: 05-02-2022 Depression Monitoring Depression Monitoring [facility] Start: 03-27-2022 [facility] Start: 03-01-2022 Influenza vaccination Flu vaccine (#1) [facility] Start: 10-31-2021 End: 10-31-2021 Patient encounter procedure 10/31/2021 Appointment Physical Therapy Zo Chen, PT [address] [place] [address] [facility] Start: 10-26-2021 COVID-19 Vaccine (4 - Booster for Moderna series) COVID-19 Vaccine (4 - Booster for Moderna series) [facility] Start: 10-11-2021 End: 10-11-2021 Patient encounter procedure 10/11/2021 Appointment Physical Therapy Zo Chen, PT [address] [place] [address] [facility] Start: 10-09-2021 End: 10-09-2021 Patient encounter procedure 10/09/2021 Appointment Physical Therapy Velasquez Martel PTA [facility] Start: 10-04-2021 End: 10-04-2021 Patient encounter procedure 10/04/2021 Appointment Physical Therapy Zo Chen, PT [address] [place] [address] [facility] Start: 10-02-2021 End: 10-02-2021 [...] Zo Chen, PT [address] [place] [address] [facility] Start: 09-15-2021 End: 09-15-2021 Patient encounter procedure 09/15/2021 Appointment Physical Therapy Velasquez Martel PTA [facility] Start: 09-13-2021 End: 09-13-2021 Patient encounter procedure 09/13/2021 Appointment Physical Therapy Velasquez Martle PTA [facility] Start: 09-08-2021 End: 09-08-2021 Patient encounter procedure 09/08/2021 Appointment Physical Therapy Zo Chen, PT [address] [place] [address] [facility] Start: 09-07-2021 Subsequent hospital visit by physician 09/07/2021 Hospital Encounter Physical Therapy Nancy Nunez [facility] Start: 09-05-2021 End: 09-05-2021 Patient encounter procedure 09/05/2021 Appointment Physical Therapy Velasquez Martel PTA [facility] Start: 09-04-2021 End: 09-04-2021 Patient encounter procedure [facility] Start: 08-31-2021 End: 08-31-2021 Patient encounter procedure 08/31/2021 Appointment Physical Therapy Velasquez Martel PTA [facility] Start: 08-17-2021 Subsequent hospital visit by physician 08/17/2021 Hospital Encounter Physical Therapy Zo Chen, PT [address] [place] [address] [facility] Start: 08-11-2021 Lipid panel Lipid screen [facility] Start: 08-11-2021 Thyroid stimulating hormone measurement TSH testing [facility] Start: 08-11-2021 TSH Qn TSH testing [facility] Work Phone: Start: 08-02-2021 End: 08-02-2021 Patient encounter procedure [facility] Start: 06-29-2021 End: 06-29-2021 Patient encounter procedure 06/29/2021 Appointment Physical Therapy Zo Chen, PT [address] [place] [address] [facility] Start: 06-26-2021 End: 06-26-2021 Patient encounter procedure 06/26/2021 Appointment Physical Therapy Zo Chen, PT [address] [place] [address] [facility] Start: 06-22-2021 End: 06-22-2021 Patient encounter procedure 06/22/2021 Appointment Physical Therapy Jamia Chenissa, PT [address] [place] [address] [facility] Start: 06-20-2021 End: 06-20-2021 Patient encounter procedure 06/20/2021 Appointment Physical Therapy Zo Chen, PT [address] [place] [address] [facility] Start: 06-14-2021 End: 06-14-2021 Patient encounter procedure 06/14/2021 Appointment Physical Therapy Zo Chen, PT [address] [place] [address] [facility] Start: 05-17-2021 End: 05-17-2021 [...] Therapy Zo Chen, PT [address] [place] [address] [phone] Start: 05-02-2021 End: 05-02-2021 Patient encounter procedure 05/02/2021 Office Visit Family Roni Villegas MD [address] [place] [address] [phone] [facility] Start: 05-02-2021 End: 05-02-2021 Patient encounter procedure 05/02/2021 Appointment Physical Therapy Rashmi Garcia [facility] Start: 04-21-2021 Annual Wellness Visit (AWV) Annual Wellness Visit (AWV) [place], [place] Start: 03-31-2021 TSH Qn TSH testing [place], [place] Start: 03-01-2021 Influenza vaccination Flu vaccine (#1) [facility] Work Phone: Start: 02-23-2021 COVID-19 Vaccine (3 - Booster for Moderna series) COVID-19 Vaccine (3 - Booster for Moderna series) [facility] Start: 01-30-2021 End: 01-30-2021 Office Visit 01/30/2021 Office Visit Family Roni Villegas MD [address], [place] [phone] [facility] Start: 01-18-2021 Screening for malignant neoplasm of colon Colon cancer screen colonoscopy [place], [place] Start: 09-06-2020 End: 09-06-2020 Office Visit 09/06/2020 Office Visit Cardiology Reagan Givens MD [address] [place] [address] [phone] [facility] Start: 07-28-2020 End: 07-28-2020 Office Visit [facility] Start: 07-11-2020 End: 07-11-2020 Office Visit 07/11/2020 Office Visit Cardiology Reagan Givens MD [address] [place] [address] [phone] [facility] Start: 07-07-2020 Lipid panel Lipid screen [place], [place] Start: 07-07-2020 Lipid screen Lipid screen [facility] Phone: Start: 07-07-2020 TSH Qn TSH testing [place], [place] Start: 07-07-2020 TSH testing TSH testing [facility] Phone: Start: 05-10-2020 Shingles Vaccine (3 of 3) Shingles Vaccine (3 of 3) [place], [place] Start: 04-14-2020 Annual Wellness Visit (AWV) Annual Wellness Visit (AWV) [place] Start: 04-13-2020 Annual Wellness Visit (AWV) Annual Wellness Visit (AWV) [place] Start: 03-13-2020 Breast cancer screen Breast cancer screen [place] Start: 03-13-2020 Screening for malignant neoplasm of breast Breast cancer screen [place] Start: 01-25-2020 End: 01-25-2020 Office Visit 01/25/2020 Office Visit Family Medicine Roni Dahl MD [address] [place] [address] [phone] [facility] Start: 12-19-2019 Respiratory Syncytial Virus Immunization: Risk, 60-74 Risk, or 75+ (1 - 1-dose 75+ series) Respiratory Syncytial Virus Immunization: Risk, 60-74 Risk, or 75+ (1 - 1-dose 75+ series) [facility] Start: 07-30-2019 End: 07-30-2019 Office Visit 07/30/2019 Office Visit Family Medicine Roni Dahl MD [address] [place] [address] [phone] [facility] Start: 07-27-2019 End: 07-27-2019 Patient encounter procedure 07/27/2019 Office Visit Family Medicine Roni Dahl MD [address] [place], [place] [id number] [facility] Start: 07-13-2019 End: 07-13-2019 Office Visit 07/13/2019 Office Visit Cardiology Reagan Givens MD [address] [place] [address] [facility] Start: 07-09-2019 Lipid screen Lipid screen [place], [place] Start: 07-09-2019 TSH testing TSH testing [place] Start: 12-31-2013 DTaP/Tdap/Td vaccine (1 - Tdap) DTaP/Tdap/Td vaccine (1 - Tdap) [facility] Start: 12-19-2011 Shingles Vaccine (2 of 3) Shingles Vaccine (2 of 3) [place], [place] Start: 2009 Fall risk assessment Falls Risk Assessment [facility] Start: 2004 Respiratory Syncytial Virus (RSV) or age 60 yrs+ (1 - 1-dose 60+ series) Respiratory Syncytial Virus (RSV) or age 60 yrs+ (1 - 1-dose 60+ series) [facility] Start: 1984 Screening for malignant neoplasm of breast Mammogram [facility] Start: 12-19-1963 DTaP/Tdap/Td vaccine (1 - Tdap) DTaP/Tdap/Td vaccine (1 - Tdap) [place], [place] Start: 1962 Hepatitis C screening [facility] Start: 1960 COVID-19 Vaccine (1 of 2) COVID-19 Vaccine (1 of 2) [place], [place] Start: 1956 Depression screening using PHQ-9 (Patient Health Questionnaire 9) score [facility] Start: 12-19-1955 DTaP/Tdap/Td vaccine (1 - Tdap) DTaP/Tdap/Td vaccine (1 - Tdap) [place], [place] Start: 1944 Hepatitis C screen Hepatitis C screen [place], [place] Start: 1944 Hepatitis C screening Hepatitis C screen [facility] Start: 1944 Screening for osteoporosis Dexa Scan [facility] Complement C3 [Mass/volume] in Serum or Plasma [facility] Complement C3 [Mass/volume] in Serum or Plasma [facility] Complement C3 [Mass/volume] in Serum or Plasma [facility] Complement C3 [Mass/volume] in Serum or Plasma [facility] Complement C3 [Mass/volume] in Serum or Plasma [facility] Complement C3 [Mass/volume] in Serum or Plasma [facility] Complement C4 [Mass/volume] in Serum or Plasma [facility] Complement C4 [Mass/volume] in Serum or Plasma [facility] Complement C4 [Mass/volume] in Serum or Plasma [facility] Complement C4 [Mass/volume] in Serum or Plasma [facility] Complement C4 [Mass/volume] in Serum or Plasma [facility] Complement C4 [Mass/volume] in Serum or Plasma [facility] End: 06-29-2020 COVID-19 COVID-19 Lab Routine Once for 1 Occurrences starting 06/29/2020 until 06/29/2020 [place] Comment on above: Once for 1 Occurrences starting 06/29/20 20 until 06/29/2020 COVID-19 COVID-19 Lab Rou dane 06/29/2020 11:25 AM EST [place] End: 06-12-2021 COVID-19 [facility] Work Phone: Comment on above: 1 Occurrences starting 06/12/2021 until 06/12/2021 End: 03-31-2020 Covid-19 Ambulatory Covid-19 Ambulatory Lab Routine Viral illness Exposure to COVID-19 virus 1 Occurrences starting 03/31/2020 until 03/31/2020 [facility] on above: 1 Occurrences starting 03/31/2020 until 03/31/2020 Covid-19 Ambulatory Covid-19 Amb ulatory Lab Routine Viral illness Exposure to COVID-19 virus 03/31/2020 1:26 PM EDT [facility] Head WO Contrast CT Head WO C ontrast Imaging STAT 11/25/2022 10:53 AM EDT [facility] Phone: CT SINUS WO CONTRAST CT SINUS WO CONTRAST Imaging STAT 11/25/2022 10:55 AM EDT [facility] Phone: End: 10-26-2021 Culture, Genital [facility] Phone: Comment on above: 1 Occurrences starting 10/26/2021 until 10/26/2021 End: 11-18-2020 Culture, Urine Culture, Urine Microbiology Routine Once for 1 Occurrences starting 11/18/2020 until 11/18/2020 [facility] Phone: Comment on above: Once for 1 Occurrences starting 11/19/19 21 until 11/18/2020 Culture, Urine Culture, Urine Microbiology Routine 11/18/2020 8:31 AM EDT [facility] Phone: End: 10-14-2021 Culture, Urine [facility] Phone: Comment on above: Once for 1 Occurrences starting 10/15/19 until 10/14/2021 End: 08-27-2024 Culture, Urine [facility] ([facility]) Comment on above: 1 Occurrences starting 08/27/2024 until 08/27/2024 End: 10-26-2021 Cytopathology procedure, preparation of smear, genital source [facility] Lab Routine Women's annual routine gynecological examination 1 Occurrences starting 10/26/2021 until 10/26/2021 [facility] Phone: Comment on above: 1 Occurrences starting 10/26/2021 until 10/26/2021 End: 05-08-2024 DBT Breast - bilateral screening [facility] Comment on above: 1 Occurrences starting 05/08/2024 until 05/08/2024 EKG 12 Lead [facility] Phone: EKG 12 Lead EKG 12 Lead ECG Routine Essential hypertension Palpitations Hypothyroidism, unspecified type Hyperlipidemia, unspecified hyperlipidemia type Vitamin D deficiency disease 08/29/2021 7:22 AM EST [facility] Phone: EKG 12 Lead EKG 12 Lead ECG STAT 10/23/2023 9:56 AM EDT [facility] EKG 12 Lead EKG 12 Lead ECG STAT 10/23/2023 12:15 PM EDT [facility] EKG 12 Lead EKG 12 Lead ECG Routine 11/14/2023 6:42 PM EDT [facility] EKG 12 Lead EKG 12 Lead ECG Routine Essential hypertension Palpitations Hyperlipidemia, unspecified hyperlipidemia type Hypothyroidism, unspecified type Vitamin D deficiency disease 08/27/2024 10:48 AM EST [facility] ([facility]) End: 11-27-2020 Gastrointestinal Panel, Molecular Gastrointestinal Panel, Molecular Microbiology Routine One Time for 1 Occurrences starting 11/27/2020 until 11/27/2020 [facility] Phone: Comment on above: One Time for 1 Occurrences starting 10/31 until 11/27/2020 Gastrointestinal Urban el, Molecular Gastrointestinal Panel, Molecular Microbiology STAT 11/27/2020 11:00 AM EDT [facility] Phone: End: 11-09-2019 ANA DIGITAL SCREEN W OR WO CAD BILATERAL ANA DIGITAL SCREEN W OR WO CAD BILATERAL Imaging Routine Visit for screening mammogram 1 Occurrences starting 11/09/2019 until 11/09/2019 [facility] Comment on above: 1 Occurrences starting 11/09/2019 until 11/09/2019 ANA DIGITAL SCREEN W OR WO CAD BILATERAL ANA DIGITAL SCREEN W OR WO CAD BILATERAL Imaging Routine Visit for screening mammogram 11/09/2019 11:37 AM EDT [facility] [place] End: 01-20-2021 ANA WU DIGITAL SCREEN BILATERAL ANA WU DIGITAL SCREEN BILATERAL Imaging Routine Screening mammogram, encounter for 1 Occurrences starting 01/20/2021 until 01/20/2021 [facility] Work Phone: Comment on above: 1 Occurrences starting 01/20/2021 until 01/20/2021 ANA WU DIGITAL SCR EEN BILATERAL ANA WU DIGITAL SCREEN BILATERAL Imaging Routine Screening mammogram, encounter for 01/20/2021 8:26 AM EDT [facility] Work Phone: Patient Education [facility] Work Phone: Patient referral [facility] Work Phone: End: 08-27-2024 XR Chest 2 Views [facility] Comment on above: 1 Occurrences starting 08/27/2024 until 08/27/2024 XR CHEST STANDARD (2 VW) XR CHES T STANDARD (2 VW) Imaging STAT 05/30/2019 6:19 AM [facility] [place], [place] Immunizations Immunization Date Immunization Notes Care Provider [facility] 03-31-2024 Seasonal trivalent influenza vaccine, adjuvanted, preservative free [facility] 03-31-2024 influenza virus vaccine, unspecified formulation Christian Lucio PA-C Work Phone: [facility] 05-06-2023 Influenza, FLUAD, (a ge 65 y+), Adjuvanted, 0.5mL Monster Mei MD Work Phone: [facility] 05-08-2022 SARS-CoV-2 (COVID-19 ) [id number] Donna Spencer [facility] 05-03-2022 influenza virus vaccine, unspecified formulation Donna Spencer [facility] Comment on above: Result Comment: 2021: VIS DATE: 02/03/2021 05-03-2022 Influenza, FLUAD, (a ge 65 y+), Adjuvanted, 0.5mL Maria R Malhotra PT [facility] Work Phone: 06-27-2021 COVID-19, Moderna, Booster, PF, 50mcg/0.25ml Mwh [facility]: 05-02-2021 Influenza, Quadv, adjuvanted, 65 yrs +, IM, PF (Fluad) Rashmi Garcia [facility] 08-26-2020 COVID-19, Moderna, Primary or Immunocompromised, PF, 100mcg/0.5mL Mwh 1 [facility]: 07-29-2020 COVID-19, Moderna, Primary or Immunocompromised, PF, 100mcg/0.5mL Mwh 1 [facility] Phone: 05-12-2020 zoster vaccine recombinant [facility] Schedule [facility], [place] 03-15-2020 influenza virus vaccine, unspecified formulation Maria R Malhotra PT [facility] Work Phone: 03-15-2020 Influenza, High-dose , Quadv, 65 yrs +, IM (Fluzone) [facility] Schedule [facility] [place] 03-15-2020 influenza, injectabl e, quadrivalent, preservative free [facility] 03-15-2020 zoster vaccine recombinant [facility], [place] 04-14-2019 influenza virus vaccine, unspecified formulation Donnaarchana Spencer [facility] Comment on above: Result Comment: 2021: VIS DATE: 02/12/2019 04-14-2019 influenza, injectabl e, quadrivalent, preservative free [facility], [place] 04-07-2018 influenza virus vaccine, unspecified formulation Donnaarchana JangJohanna [facility] Comment on above: Result Comment: 2021: VIS DATE: 02/04/2015 04-07-2018 influenza, injectabl e, quadrivalent, preservative free [facility], [place] 04-10-2017 influenza virus vaccine, unspecified formulation [facility] 05-14-2016 influenza, high dose seasonal, preservative-free [facility] 03-01-2016 pneumococcal conjuga te vaccine, 13 valent [facility] 04-12-2015 influenza virus vaccine, unspecified formulation [facility] 04-24-2014 influenza virus vaccine, unspecified formulation [facility] 04-24-2014 influenza, whole Donna Botello etz [facility] 12-30-2013 Td, unspecified formulation [facility] 12-30-2013 tetanus and diphther ia toxoids, adsorbed, preservative free, for adult use (2 Lf of tetanus toxoid and 2 Lf of diphtheria toxoid) Donna Spencer [facility] 12-30-2013 tetanus and diphther ia toxoids, adsorbed, preservative free, for adult use (5 Lf of tetanus toxoid and 2 Lf of diphtheria toxoid) Monster Mei MD Work Phone: [facility] 07-17-2013 influenza virus vaccine, unspecified formulation [facility] 07-17-2013 influenza, whole Donna Botello etz [facility] 10-24-2011 zoster vaccine, live [place], [place] 03-31-2011 pneumococcal polysaccharide vaccine, 23 valent [place], [place] Payers Date Payer Category Payer Self-pay [id number] 2023 Managed Care [facility] (unspecified) [employer] [id number] 2022 Private Health Insurance [id number] .[id number]. 2.7.3.795741.315 2020 Private Health Insurance CLI [id number] 1.2.840.122387.1.13.239. 2.7.3.691174.315 2020 Private Health Insurance CLI [id number] 1.2.840.016813.1.13.239. 2.7.3.652918.315 2014 Medicare MEDICARE MEDICAR E PART A AND B xxxxxxxxxxx 2014-Present [phone] [address] [address] [place] [address] xxxxxxxxxxx [id number]. 2.7.3.266528.315 2014 Unknown [facility] xxxxxxxxxx 2014-Present [phone] [address] [place] [address] xxxxxxxxxx 1.2.840.225902.1.13.239. 2.7.3.451687.315 2014 Unknown [id number] 1.2.840.229590.1.13.239. 2.7.3.522947.315 2009 Medicare 1.2.840.236982. 1.13.385. 2.7.3.625674.315 2009 Medicare [id number] 1.2.840.729870.1.13.239. 2.7.3.135847.315 1944 Unknown [id number] 2.16.840.1.955810.3.579. 2.903 1944 Unknown [id number] 2.16.840.1.010686.3.579. 2.903 1944 Unknown [id number] 2.16.840.1.148341.3.579. 2.727 1944 Unknown [id number] 2.16.840.1.572040.3.579. 2.727 1944 Unknown [id number] 2.16.840.1.090035.3.579. 2.174 1944 Unknown [id number] 2.16.840.1.859904.3.579. 2.174 1944 Unknown [id number] 2.16.840.1.640545.3.579. 2.174 1944 Unknown [id number] 2.16.840.1.366574.3.579. 2.174 1944 Unknown [id number] 2.16.840.1.276111.3.579. 2.174 1944 Unknown [id number] 2.16.840.1.413748.3.579. 2.174 1944 Unknown [id number] 2.16.840.1.471053.3.579. 2.174 1944 Unknown [id number] 2.16.840.1.143011.3.579. 2.174 1944 Unknown [id number] 2.16.840.1.234108.3.579. 2.174 1944 Unknown [id number] 2.16.840.1.826447.3.579. 2.174 1944 Unknown [id number] 2.16.840.1.319250.3.579. 2.174 1944 Unknown [id number] 2.16.840.1.407710.3.579. 2.174 1944 Unknown [id number] 2.16.840.1.321046.3.579. 2.174 1944 Unknown [id number] 2.16.840.1.487890.3.579. 2.174 1944 Unknown [id number] 2.16.840.1.242418.3.579. 2.174 1944 Unknown [id number] 2.16.840.1.134236.3.579. 2.1259 1944 Unknown [id number] 2.16.840.1.681207.3.579. 2.1259 1944 Unknown [id number] 2.16.840.1.375964.3.579. 2.1259 1944 Unknown [id number] 2.16.840.1.203131.3.579. 2.173 1944 Unknown [id number] 2.16.840.1.715033.3.579. 2. 1944 Unknown [id number] 2.16.840.1.259575.3.579. 2.3 1944 Unknown [id number] 2.16.840.1.100256.3.579. 2. 1944 Unknown [id number] 2.16.840.1.190096.3.579. 2. 1944 Unknown [id number] 2.16.840.1.886958.3.579. 2.196 1944 Unknown [id number] 2.16.840.1.275819.3.579. 2.196 1944 Unknown [id number] 2.16.840.1.978801.3.579. 2.196 1944 Unknown [id number] 2.16.840.1.278684.3.579. 2.196 1944 Unknown [id number] 2.16.840.1.198527.3.579. 2.196 1944 Unknown [id number] 2.16.840.1.100155.3.579. 2. 1944 Unknown [id number] 2.16.840.1.362539.3.579. 2.196 1944 Unknown [id number] 2.16.840.1.607436.3.579. 2.196 Medicare supplementa l policy (as second payer) [employer] 1.2.840.973922.1.13.385. 2.7.9.742360.310.315 Unknown [id number] 2.16.840.1.495022.3.579. 2.531 Unknown [id number] 2.16.840.1.621479.3.579. 2.531 Unknown [id number] 2.16.840.1.978115.3.579. 2.531 Social History Date Type Detail Facility Start: 05-30-2019 End: 03-14-2023 Tobacco smoking status NHIS Never smoker [facility] Start: 05-30-2019 End: 11-30-2024 Alcohol intake Current non-drinker of alcohol (finding) [place], [place] Start: 1945 Sex Assigned At Not on file [place] Start: 03-31-2020 End: 05-02-2023 Tobacco use and exposure Never used [place] Exposure to SARS-CoV-2 (event) Yes [place] Start: 10-04-2021 End: 07-12-2022 Exposure to SARS-CoV-2 (event) [facility] sure [facility] Start: 11-22-2020 End: 09-03-2022 History SDOH Financial 5 [facility] Work Phone: Start: 11-22-2020 End: 09-03-2022 History SDOH Food Worry 1 [facility] Work Phone: Start: 1945 Sex Assigned At [facility] Work Phone: Start: 04-14-2019 End: 02-05-2025 Alcohol intake No [facility]- [place], [place] Tobacco smoking status Never [facility] Start: 09-03-2022 End: 11-25-2022 History SDOH Alcohol Frequency 2 [employer] Work Phone: Start: 11-25-2022 History SDOH Alcohol Std Drinks 0 [employer] Work Phone: Start: 11-25-2022 End: 02-05-2025 History of Social function [employer] How often to you hav e a drink containing alcohol? Monthly or less [employer] How often do you hav e 6 or more drinks on 1 occasion? Never [employer] (I/We) worried whether (my/our) food would run out before (I/we) got money to buy more. Never true [employer] At any time in the past 12 months, were you homeless or living in [place] [facility] [place] [including now]? No [employer] Start: 01-27-2021 Gender identity Identifies as female gender (finding) [employer] Start: 04-13-2020 Sexual orientation Heterosexual (fin ding) [employer] Start: 05-02-2023 End: 02-05-2025 Alcohol intake Ex-drinker (finding) [facility] Start: 08-10-2012 End: 08-12-2024 Sex Female (finding) [facility] Start: 02-03-2023 End: 11-26-2024 Alcoholic beverage intake Lifetime non-drinker (finding) [facility] Start: 02-03-2023 Alcohol Comment caffeine: 1-2 cups per day coffee [facility] NEGATED: Highlighted rowStart: MUNAF History of tobacco use Passive smoker [employer] Medical Equipment Procedure Code Equipment Code Equipment Origin al Text Equipment Identifier Dates Surgical procedure, using tension free vaginal tape, for stress incontinence [id number] [facility] Start: 06-03-2019 Surgical procedure, using tension free vaginal tape, for stress incontinence [id number] FDA Start: 06-03-2019 Surgical procedure, using tension free vaginal tape, for stress incontinence [id number] FDA Start: 06-03-2019 Surgical procedure, using tension free vaginal tape, for stress incontinence [id number] FDA Start: 06-03-2019 Surgical procedure, using tension free vaginal tape, for stress incontinence [id number] FDA Start: 06-03-2019 Surgical procedure, using tension free vaginal tape, for stress incontinence [id number] FDA Start: 06-03-2019 Surgical procedure, using tension free vaginal tape, for stress incontinence [id number] FDA Start: 06-03-2019 Surgical procedure, using tension free vaginal tape, for stress incontinence [id number] FDA Start: 06-03-2019 Surgical procedure, using tension free vaginal tape, for stress incontinence [id number] FDA Start: 06-03-2019 Surgical procedure, using tension free vaginal tape, for stress incontinence [id number] FDA Start: 06-03-2019 Surgical procedure, using tension free vaginal tape, for stress incontinence [id number] FDA Start: 06-03-2019 Surgical procedure, using tension free vaginal tape, for stress incontinence [id number] FDA Start: 06-03-2019 Surgical procedure, using tension free vaginal tape, for stress incontinence [id number] FDA Start: 06-03-2019 Surgical procedure, using tension free vaginal tape, for stress incontinence [id number] FDA Start: 06-03-2019 Surgical procedure, using tension free vaginal tape, for stress incontinence [id number] FDA Start: 06-03-2019 Surgical procedure, using tension free vaginal tape, for stress incontinence [id number] FDA Start: 06-03-2019 Surgical procedure, using tension free vaginal tape, for stress incontinence [id number] FDA Start: 06-03-2019 Surgical procedure, using tension free vaginal tape, for stress incontinence [id number] FDA Start: 06-03-2019 {[id number]{17}[id number]{10}[id number] FDA Start: 07-28-2021 Goals Date Patient Goal Desired Activity /State Personal health goal Functional Status Date Assessment Result Facility 09-16-2023 Functional Status N/A [facility] 02-28-2023 Functional Status N/A [facility] 08-28-2022 Functional Status N/A [facility] 07-26-2022 Functional Status N/A [facility] 07-10-2022 Functional Status N/A [facility] Clinical Notes 11-18-2020 to 02-05-2025 Georges Barger PA-C - 02/05/2025 9:55 AM Christian Enriquez PA-C - 01/15/2025 9:54 AM Radha Canales DPM - 11/26/2024 9:30 AM Radha Canales DPM - 08/17/2024 2:00 PM EST Note Date & Type Note Facility 02-05-2025 Note Patient Name: [facility] Location: [address] Date Of : Date Of Visit: 1945 02/05/2025 MRN# Provider: [id number] Georges Barger PA-C Chief Complaint Patient presents [...] been dictated. This dictation was generated using [employer] voice recognition software. Please excuse any grammatical [...] display Orders Placed (more content not included)... [facility] 02-05-2025 History of Present illness Narrative Images from the original note were not included. Patient Name: [facility] Location: Mary Jane Ora Rios [address] [place] [id number] Date Of : Date Of Visit: 1945 02/05/2025 MRN# Provider: [id number] Georges Barger PA-C Chief Complaint Patient presents [...] been dictated. This dictation was generated using [employer] voice recognition software. Please excuse any grammatical [...] for this visit. documented in this encounter [facility] 01-15-2025 Note Patient Name: [facility] Location: Mary Jane Rios [address] [place] [id number] Date Of : Date Of Visit: 1945 01/15/2025 MRN# Provider: [id number] Christian Lucio PA-C Chief Complaint Patient presents [...] instances, original wilner (more content not included)... [facility] 01-15-2025 History of Present illness Narrative Images from the original note were not included. Patient Name: [facility] Location: [address] [address] Date Of : Date Of Visit: 1945 01/15/2025 MRN# Provider: [id number] Christian Lucio PA-C Chief Complaint Patient presents [...] for this visit. documented in this encounter [facility] 11-26-2024 History of Present illness Narrative Mary [...] planned and reviewed documented in this encounter [facility] 08-17-2024 History of Present illness Narrative Mary Jane Rios is a 78 y.o. female presents with chief complaint of Ankle Pain (Rgt Ankle pain) HPI: HPI Pt states she sprained rgt ankle 07/07/2024 but does not know how it happened. 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 [...] until gait normal documented in this encounter [facility] 07-10-2024 Note PROCEDURE: XR ANKLE RIGHT (MIN 3 VIEWS) HISTORY: ankle pain COMPARISON: None. FINDINGS: BONES:No acute fracture, dislocation, or joint space narrowing. Small corticated ossifications adjacent the tip of the medial and lateral malleolar line compatible with sequela of remote injury. Large degenerative calcaneal plantar spur. SOFT TISSUES:No visible soft tissue swelling. EFFUSION:None visible. OTHER: Negative. [facility] 07-10-2024 Note PROCEDURE: XR [...] by: Bello Leal MD 07/10/24 Final result [facility] 06-24-2024 Hospital Discharge instructions Mosnter Mei MD - 06/24/2024 6:20 PM EST Vitamin D3 4000 units daily x 7 days Vitamin C 1000 mg Aspirin 81 mg daily The following attachments cannot be sent through Care Everywhere.COVID-19: High Risk for Serious Illness: General Info (Mongolian)documented in this encounter [facility] 10-23-2023 Hospital Discharge instructions Lexy Tapia MD [...] and blood thinners. 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 Stay well-hydrated with water or nonsugar sports drinks, Zofran ODT for any nausea as needed, I would advise not to use anything for the diarrhea at this time save soft toilet paper or baby wipes as needed. The following attachments cannot be sent through Care Everywhere.Serous Otitis Media (Mongolian)Atrial Fibrillation (Mongolian)Direct Oral Anticoagulants: Non-Vitamin K Antagonist (Mongolian)Oral Rehydration (Mongolian)documented in this encounter [facility] 09-17-2023 Note [id number] [facility] 09-16-2023 Hospital Discharge instructions Patient Education 09/16/2023 [...] 3 times a day. General instructions Take mlhe-qkp-gikblhq and prescription medicines only as told by [...] provider. Document Revised: 12/27/2021 Document Reviewed: 12/27/2021 [employer] Patient Education 2022 GTxcel. 09/16/2023 14:59:47 Diverticulosis MAGR (CUSTOM) Diverticulosis Many [...] unsweetened, w/added ascorbic acid 1 cup 0.5 Emmet 1 cup 0.7 Vegetables Cooked Green beans 1 cup 4.0 Carrots 1/2 cup sliced 2.3 Peas 1 cup 8.8 Potato (baked, with skin) 1 medium potato 3.8 Raw [place] (with peel) 1 cucumber 1.5 Lettuce 1 [...] 8.7 Peanuts 1/2 cup 7.9 Chart from [facility] 2013. SEEK IMMEDIATE MEDICAL CARE IF: You [...] Available at http://www.nal.usda.gov/fnic/f oodcomp/search/. Information adapted from: [facility] Patient Information 2009 [employer]. Libratone 2012 http://www.[employer]/lani sim/qkfcyzybcfru-xakwlip-rwnzqh -the-basics 09/16/2023 14:59:47 Colon Polyps Colon Polyps [...] hard liquor (44 mL). General instructions Take avll-pum-caezirc and prescription medicines only as told by [...] provider. Document Revised: 10/05/2020 Document Reviewed: 10/05/2020 [employer] Patient Education 2022 [employer] Follow Up Care 02/28/2023 13:25:17 With:Davion Olivares Address: [facility] [address], [address] [phone] [employer] (1) When: Unknown Comments:office will call for follow up [facility] 09-16-2023 Evaluation + Plan note Extrac pepito from: Title:ANES Post General Author:Danny Anesthes iology ()Obie Date:09/16/23 Plan Transfer/Discharge: Patient exhibiting no signs of N/V. Hydration status is adequate. Extracted from: Title:Danny Basic PRE Author:Danny Anesthe siology ()Obie Date:09/16/23 Plan [place] [employer] of Anesthesiologists (ASA) physical status classification: Class III. Anesthetic Preoperative Plan: Anesthesia General. [facility]11-02-2023 Instructions* Patient Instructions* Grayson [...] for repeat hearing testing. documented in this [id number] History of Present illness Narrative* Mary Sue, Oswaldo - 05/02/2023 9:19 AM EDT Images from the original note were not included. [facility] [address] [place] [address] Name: Mary Jane Rios : 1945 Date: [...] for bilateral ear infection. She returned to [facility] and was told that herear was still infected. She reports her last hearing test several years ago in [place]. 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 Electronically Signed by: Oswaldo Blake, [facility] 05/02/23 9:19 AM documented in this [id number] History of Present illness Narrative* Grayson Hutchisnon Jr., DO - 05/02/2023 8:57 AM EDT Images from the original note were not included. Subjective Patient ID: Mary Jane Rios is a 77 y.o. female. 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 Patient states she has had left ear infections for most of her life. She was treated for ear infection with Augmentin in October. 3 weeks ago, woke up with extreme pain and was treated again for b/l ear infection. She returned to [facility] and was told thather ear was still infected. Last hearing test several years ago in [place]. 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 documented in this [id number] NoteChief Complaint: lbp and radicular pain right [...] current indications for surgical management [facility] NoteChief Complaint: lbp and radicular pain [...] preoperative surgical planning [facility]* Encounter Date Diagnosis Assessment Notes Treatment Notes Treatment Clinical Notes Mar, Piriformis syndrome of right side (ICD-10 - G57.01) [facility] Other 09-14-2023 Evaluation note* Encounter Date Diagnosis [...] note writ ten by John Merlos LPN, Pig Machine Operator Helper. Edited and approved by Dr. Yanelis Garcia MD. [facility] Other 09-07-2023 Evaluation note* Encounter Date Diagnosis [...] be replaced but there are areas of zayd-oz-hkfw. My suspicion is that this is causing some nerve irritation I have no indication for doing back surgery I think injections in the spine will be of no benefit she is already had some and they have not helped. I think what needs to be injected or treated is the area around the hip. Mar, Right hip pain (ICD-10 - M25.551) [facility] Other 08-28-2023 Evaluation note* Encounter Date Diagnosis Assessment Notes Treatment Notes Treatment Clinical Notes Jan, Other spondylosis with radiculopathy, lumbar region (ICD-10 - M47.26) [facility] Other 08-17-2023 Evaluation note* Encounter Date Diagnosis Assessment Notes Treatment Notes Treatment Clinical Notes Jan, Other spondylosis with radiculopathy, lumbar region (ICD-10 - M47.26) [facility] Other 08-11-2023 Hospital Discharge instructions* Discharge Instructions* Keyshawn Suresh PA-C - 02/08/2023 4:26 PM EDT Follow-up with primary care doctor 7 to 10 days for reevaluation. Continue to wear corrective shoe as directed to prevent future sciatica low back pain events. Take [place] as directed. As we discussed, break a tab of [place] in half and take every 6 hours as needed for pain. Promptly return to emergency department for new, changing, worsening of symptoms or other concerns. * Attachments The following attachments cannot be sent through Care Everywhere. * Back Pain (Mongolian) * Sciatica (Mongolian) [facility]* Encounter Date Diagnosis Assessment Notes [...] therapy. Follow above of treatment plan recommendations. [facility] Other 05-28-2023 History of Present illness Narrative* Zunilda Bullock RN - 11/25/2022 10:47 AM EDT Ticket to ride completed. The following information was reported off: Name Allergies Orientation Level Destination Safety Issues Code Status Oxygen Requirements Special needs including mobility, language, communication documented in this encounterBON [employer] Phone: 1(604) 254-928002-28-2023 Hospital Discharge instructions Patient Education 08/28/2022 13:26:40 [...] powder, vinegar, hot sauces, and barbecue sauce. ?Walker fruit juices and citrus fruits, such as oranges, kamilah, and limes. ?Tomato-based foods, such as red sauce, chili, salsa, and pizza with red sauce. ?Fried and fatty foods, such as donuts, botswanan fries, potato chips, and high-fat dressings. ?High-fat [...] to any changes in your symptoms. Take dpav-ntw-tcqhrpy and prescription medicines only as told by [...] you have new or worsening symptoms. Take prqt-xva-dcofvtq and prescription medicines only as told by [...] 03/27/2006 Document Revised: 12/24/2018 Document Reviewed: 12/24/2018 [employer] Patient Education 2020 GTxcel. Follow Up Care 08/15/2022 13:39:48 With:KHADAR STEINER, EMIL Ferrari, [facility] Address: [address] [place] [address]. [address] [place] [phone] When:6 months Comments:Patient requests to be evaluated by Dr. Hernandez next visit. [facility] [phone] Evaluation note* Encounter Date Diagnosis Assessment Notes [...] note writ ten by John Merlos LPN, Pig Machine Operator Helper. Edited and approved by Dr. Yanelis Garcia MD. [facility] Other 01-26-2023 Evaluation + Plan noteExtracted from: Title:ANES Pre-operative Note Author:Misha STEINER, R miryam S. Date:07/26/22 Plan [place] Society of Anesthesiologists (ASA) physical status classification: Class III. Anesthetic Preoperative Plan: Anesthesia General. [facility]01-26-2023 Hospital Discharge instructions Patient [...] what activities are safe for you. Take ckcl-jsu-bgvvxqw and prescription medicines only as told by [...] 12/16/2012 Document Revised: 12/09/2018 Document Reviewed: 11/17/2018 [employer] Patient Education 2020 GTxcel. Follow Up Care 07/10/2022 14:59:17 With:Vonda HERNANDEZ Address: [address] [place] [address] Business (1) When: Unknown Comments:Office will call date and time of follow-up appt. [facility]01-17-[address] [facility]01-12-2023 Hospital Discharge instructions* Discharge Instructions* Alma Mao DO - 07/12/2022 9:31 AM EST Go to your scheduled appt with your GI doctor for your scope. * Attachments The following attachments cannot be sent through Care Everywhere. * Sore Throat (Mongolian) documented in this encounterB[facility] CENTER[facility]gePoint [facility] Work Phone: [phone]) 213-637601-10-2023 Hospital Discharge instructions Patient Education 07/10/2022 14:24:54 [...] powder, vinegar, hot sauces, and barbecue sauce. ?Walker fruit juices and citrus fruits, such as oranges, kamilah, and limes. ?Tomato-based foods, such as red sauce, chili, salsa, and pizza with red sauce. ?Fried and fatty foods, such as donuts, botswanan fries, potato chips, and high-fat dressings. ?High-fat [...] to any changes in your symptoms. Take yacn-tvp-iklrqls and prescription medicines only as told by [...] you have new or worsening symptoms. Take podg-wqi-bfjoxau and prescription medicines only as told by [...] 03/27/2006 Document Revised: 12/24/2018 Document Reviewed: 12/24/2018 [employer] Patient Education 2020 GTxcel. Follow Up Care 06/26/2022 15:51:19 With:Donna Spencer CNP Address: When:1 to 2 weeks Comments:Following EGD. [facility] 12-14-2022 Evaluation note* Encounter Date [...] note writ ten by John Merlos LPN, Pig Machine Operator Helper. Edited and approved by Dr. Yanelis Garcia MD. [facility] Other 11-02-2022 Evaluation note* Encounter Date Diagnosis [...] note writ ten by Rush Toro MA, Pig Machine Operator Helper. Edited and approved by Dr. Yanelis Garcia MD. [facility] Other 10-10-2022 Evaluation note* Encounter Date Diagnosis [...] note writ ten by John Merlos LPN, Pig Machine Operator Helper. Edited and approved by Dr. Yanelis Garcia MD. [facility] Other 04-13-2022 History of Present illness Narrative* Zo Chen, PT - 10/11/2021 9:00 AM EDT Images from the original note were not included. [facility] Daily Note Date: 10/11/2021 Patient Name: Mary Jane Rios : 1945 (75 y.o.) Referring Practitioner: Dr. Meyer Referral Date : 08/10/21 Diagnosis: Right RCR repair Treatment Diagnosis: Right RCR Onset Date: 07/28/21 PT Insurance Information: [facility] Total # of Visits [...] Care Facility Goals - Time Frame for long-term goals : 18 visits reinforcing rod layer goal 1: PROM flexion 150 deg and abduction 140 deg- MET reinforcing rod layer goal 2: PROM ER 50 deg and IR 60 deg (@ 90 deg )- MET reinforcing rod layer goal 3: Functionally elevate right shoulder to reach behind head for self care/hair care-MET long-term goal 4: Functionally reach behind back to don coat or bra- NOT MET long-term goal 5: Strength right shoulder/UE to carry gallon of milk- MET Post Treatment Pain: 08/10 Time In: 0900 Time Out : 0950 Timed Code Treatment Minutes: 45 Minutes Total Treatment Time: 50 Minutes ZO CHEN PT Date: 10/11/2021 [facility] Phone: [phone]) 621-968504-13-2022 Hospital course Narrative* Zo Chen, PT - 10/11/2021 9:00 AM EDT Images from the original note were not included. [facility] Discharge Summary Patient: Mary Jane Rios : 1945 Referring Practitioner: Dr. Meyer Diagnosis: Right RCR repair Date Treatment Initiated: 04/28/22 Date of Last Treatment: 10/11/21 PT Visit Information Onset Date: 07/28/21 PT Insurance Information: [facility] Total # of Visits [...] CHEN PT Date: 10/11/2021 documented in this [facility] Work Phone: [phone]) 843-464404-06-2022 History of Present illness Narrative* Zo Chen PT - 10/04/2021 11:15 AM EDT Images from the original note were not included. [facility] Daily Note Date: 10/04/2021 Patient Name: Mary Jane Rios : 1945 (75 y.o.) Referring Practitioner: Dr. Meyer Referral Date : 08/10/21 Diagnosis: Right RCR repair Treatment Diagnosis: Right RCR Onset Date: 07/28/21 PT Insurance Information: [facility] Total # of Visits [...] Care Facility Goals - Time Frame for long-term goals : 18 visits long-term goal 1: PROM flexion 150 deg and abduction 140 deg long-term goal 2: PROM ER 50 deg and IR 60 deg (@ 90 deg ) reinforcing rod layer goal 3: Functionally elevate right shoulder to reach behind head for self care/hair care long-term goal 4: Functionally reach behind back to don coat or bra reinforcing rod layer goal 5: Strength right shoulder/UE to carry gallong of milk Post Treatment Pain: 10/08 Time In: 1115 Time Out : 1200 Timed Code Treatment Minutes: 45 Minutes Total Treatment Time: 45 Minutes ZO CHEN PT Date: 10/04/2021 documented in this [facility] Phone: [phone]) 614-511203-28-2022 History of Present illness Narrative* Rashmi Paige - 09/25/2021 11:15 AM EDT [facility] Date: 09/25/2021 Patient Name: Mary Jane Rios : 1945 Pt Cancelled Appt due to going to a . Rashmi Paige Date: 09/25/2021 documented [facility] this [facility] Phone: [phone]) 907-549803-24-2022 History of Present illness Narrative* Velasquez Martel PTA - 09/21/2021 9:00 AM EDT Images from the original note were not included. [facility] Daily Note Date: 09/21/2021 Patient Name: Mary Jane Rios : 1945 (75 y.o.) Referring Practitioner: Dr. Meyer Referral Date : 08/10/21 Diagnosis: Right RCR repair Treatment Diagnosis: Right RCR Onset Date: 07/28/21 PT Insurance Information: [facility] Total # of Visits [...] Care Facility Goals - Time Frame for long-term goals : 18 visits long-term goal 1: PROM flexion 150 deg and abduction 140 deg reinforcing rod layer goal 2: PROM ER 50 deg and IR 60 deg (@ 90 deg ) reinforcing rod layer goal 3: Functionally elevate right shoulder to reach behind head for self care/hair care reinforcing rod layer goal 4: Functionally reach behind back to don coat or bra reinforcing rod layer goal 5: Strength right shoulder/UE to carry gallong of milk Post Treatment Pain: 10/08 Time In: 0901 Time Out : 0946 Timed Code Treatment Minutes: 45 Minutes Total Treatment Time: 45 Minutes Velasquez Martel PTA Date: 09/21/2021 documented in this [facility] Work Phone: [phone]) 564-241703-22-2022 History of Present illness Narrative* Nancy Nunez - 09/19/2021 9:15 AM EDT Images from the original note were not included. [facility] Daily Note Date: 09/19/2021 Patient Name: Mary Jane Rios : 1945 (75 y.o.) Referring Practitioner: Dr. Meyer Referral Date : 08/10/21 Diagnosis: Right RCR repair Treatment Diagnosis: Right RCR Onset Date: 07/28/21 PT Insurance Information: [facility] Total # of Visits [...] 35 deg @ 90 deg - MET Steam Setter Goals - Time Frame for long-term goals : 18 visits long-term goal 1: PROM flexion 150 deg and abduction 140 deg reinforcing rod layer goal 2: PROM ER 50 deg and IR 60 deg (@ 90 deg ) reinforcing rod layer goal 3: Functionally elevate right shoulder to reach behind head for self care/hair care reinforcing rod layer goal 4: Functionally reach behind back to don coat or bra long-term goal 5: Strength right shoulder/UE to carry gallong of milk Post Treatment Pain: 09/07 Time In: 0915 Time Out : 0958 Timed Code Treatment Minutes: 43 Minutes Total Treatment Time: 43 Minutes Nancy Nunez,PICTURE HANGER Date: 09/19/2021 documented in this [facility] Work Phone: [phone]) 746-377603-18-2022 History of Present illness Narrative* Velasquez Martel, PICTURE HANGER - 09/15/2021 9:45 AM EDT Images from the original note were not included. [facility] Daily Note Date: 09/15/2021 Patient Name: Mary Jane Rios : 1945 (75 y.o.) Referring Practitioner: Dr. Meyer Referral Date : 08/10/21 Diagnosis: Right RCR repair Treatment Diagnosis: Right RCR Onset Date: 07/28/21 PT Insurance Information: [facility] Total # of Visits [...] Care Facility Goals - Time Frame for long-term goals : 18 visits reinforcing rod layer goal 1: PROM flexion 150 deg and abduction 140 deg reinforcing rod layer goal 2: PROM ER 50 deg and IR 60 deg (@ 90 deg ) reinforcing rod layer goal 3: Functionally elevate right shoulder to reach behind head for self care/hair care long-term goal 4: Functionally reach behind back to don coat or bra reinforcing rod layer goal 5: Strength right shoulder/UE to carry gallong of milk Post Treatment Pain: 10/08 Time In: 0945 Time Out : 1030 Timed Code Treatment Minutes: 45 Minutes Total Treatment Time: 45 Minutes Velasquez Martel PTA Date: 09/15/2021 documented in this [facility] Work Phone: [phone]) 619-498403-16-2022 History of Present illness Narrative* Velasquez Martel, PICTURE HANGER - 09/13/2021 9:45 AM EDT Images from the original note were not included. [facility] Daily Note Date: 09/13/2021 Patient Name: Mary Jane Rios : 1945 (75 y.o.) Referring Practitioner: Dr. Meyer Referral Date : 08/10/21 Diagnosis: Right RCR repair Treatment Diagnosis: Right RCR Onset Date: 07/28/21 PT Insurance Information: [facility] Total # of Visits [...] Care Facility Goals - Time Frame for reinforcing rod layer goals : 18 visits long-term goal 1: PROM flexion 150 deg and abduction 140 deg long-term goal 2: PROM ER 50 deg and IR 60 deg (@ 90 deg ) reinforcing rod layer goal 3: Functionally elevate right shoulder to reach behind head for self care/hair care long-term goal 4: Functionally reach behind back to don coat or bra reinforcing rod layer goal 5: Strength right shoulder/UE to carry gallong of milk Post Treatment Pain: 3-4/10 Time In: 0945 Time Out : 1030 Timed Code Treatment Minutes: 45 Minutes Total Treatment Time: 45 Minutes Velasquez Martel PTA Date: 09/13/2021 documented in this [facility] Work Phone: [phone]) 300-276603-10-2022 History of Present illness Narrative* Zo Chen, PT - 09/07/2021 11:15 AM EST Images from the original note were not included. [facility] Daily Note Date: 09/07/2021 Patient Name: Mary Jane Rios : 1945 (75 y.o.) Referring Practitioner: Dr. Meyer Referral Date : 08/10/21 Diagnosis: Right RCR repair Treatment Diagnosis: Right RCR Onset Date: 07/28/21 PT Insurance Information: [facility] Total # of Visits [...] Care Facility Goals - Time Frame for reinforcing rod layer goals : 18 visits long-term goal 1: PROM flexion 150 deg and abduction 140 deg reinforcing rod layer goal 2: PROM ER 50 deg and IR 60 deg (@ 90 deg ) reinforcing rod layer goal 3: Functionally elevate right shoulder to reach behind head for self care/hair care reinforcing rod layer goal 4: Functionally reach behind back to don coat or bra reinforcing rod layer goal 5: Strength right shoulder/UE to carry gallong of milk Post Treatment Pain: 08/10 Time In: 1105 Time Out : 1150 Timed Code Treatment Minutes: 45 Minutes Total Treatment Time: 45 Minutes OZ CHEN PT Date: 09/07/2021 documented [facility] Phone: [phone]) 317-984512-13-2021 History of Present illness Narrative* Rashmi Shukla Kenjil - 06/12/2021 10:30 AM EST [facility] Date: 06/12/2021 Patient Name: Mary Jane Rios : 1945 Pt Cancelled Appt due to Illness Rashmi Vazquez Paige Date: 06/12/2021 [facility] Phone: 1(931) 150-191511-05-2021 History of Present illness Narrative* Zo Chen, PT - 05/05/2021 2:30 PM EDT Images from the original note were not included. 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 Goals - Time Frame for reinforcing rod layer goals : 10 visits long-term goal 1: Subjective right shoulder pain < 3/10 with daily household tasks reinforcing rod layer goal 2: Active functional mobility to reach behind head for hair care and behind back to don coat/dressing reinforcing rod layer goal 3: Strength right shoulder to lift/carry gallon of milk or fold clothes Post Treatment Pain: 3/10 Time In: 1435 Time Out : 1510 Timed Code Treatment Minutes: 35 Minutes Total Treatment Time: 35 Minutes ZO CHEN PT Date: 05/05/2021 documented in this [facility] Phone: [phone]) 794-434805-21-2021 History of Present illness Narrative* Ericka Cline RN - 11/18/2020 6:50 AM EDT Pt states she took 6 tablets of Imodium yesterday. She states she is incontinent of urine/stool & the imodium is not helping. documented in this [facility] Work Phone: evaluation + Plan note No data available for this section [facility] Evaluation + Plan note Future Appointments Appointment Date:07/10/2022 02:00:00 PM Scheduled Provider:Donna Spencer CNP Location:[facility] Appointment Type:[facility] Follow Up [facility] Evaluation + Plan note Future Appointments Appointment Date:07/26/2022 08:15:00 AM Scheduled Provider: Location:[facility] Appointment Type:Surgery FT [facility] Evaluation + Plan note Future Appointments Appointment Date:02/28/2023 12:00:00 PM Scheduled Provider:Vonda HERNANDEZ MD Location:[facility] Dig[facility] Health Appointment Type:BADH Follow Up Future Scheduled Tests Laboratory* Vitamin B12 Level 08/28/22 [facility] Evaluation + Plan note Future Appointments Appointment Date:08/05/2023 12:30:00 PM Scheduled Provider: Location:[facility] Services Appointment Type:Surgery FT Future Scheduled Tests Laboratory* Vitamin B12 Level 08/28/22 [facility] evaluation note* Diagnosis Nausea vomiting and diarrhea- Primary Nausea with vomiting documented in this encounter [employer] Phone: evaluation note* Diagnosis Diarrhea of presumed infectious origin Intractable vomiting with nausea, unspecified vomiting type documented in this encounter [employer] Phone: [email or web address] note* Diagnosis Diarrhea, unspecified type- Primary General weakness Other malaise and fatigue Urinary incontinence, unspecified type documented in this encounter [employer] Phone: [email or web address] note* Diagnosis Low hemoglobin Anemia, unspecified documented in this encounter [employer] Phone: [email or web address] note* Diagnosis Low hemoglobin Anemia, unspecified documented in this encounter [employer] Phone: evaluation note* Diagnosis Screening mammogram, encounter for documented in this encounter [employer] Phone: [email or web address] note* Diagnosis Right shoulder pain, unspecified chronicity documented in this encounter [employer] Phone: [email or web address] note* Diagnosis Acute non-recurrent pansinusitis documented in this encounter [employer] Phone: [email or web address] note* Diagnosis Diarrhea of presumed infectious origin documented in this encounter [employer] note* Diagnosis History of arthroscopy of right shoulder documented in this encounter [employer] Phone: [email or web address] note* Diagnosis Essential hypertension Unspecified essential hypertension Palpitations Hypothyroidism, unspecified type Hyperlipidemia, unspecified hyperlipidemia type Vitamin D deficiency disease Unspecified vitamin D deficiency documented in this encounter [employer] Phone: evaluation note* Diagnosis Essential hypertension Unspecified essential hypertension Pure hypercholesterolemia Acquired hypothyroidism Unspecified hypothyroidism Palpitations Vitamin D deficiency disease Unspecified vitamin D deficiency documented in this encounter [employer] Phone: evaluation note* Diagnosis Essential hypertension Unspecified essential hypertension Pure hypercholesterolemia Acquired hypothyroidism Unspecified hypothyroidism Palpitations Vitamin D deficiency disease Unspecified vitamin D deficiency documented in this encounter [employer] Phone: evalehrqgx note* Diagnosis Essential hypertension Unspecified essential hypertension Pure hypercholesterolemia Acquired hypothyroidism Unspecified hypothyroidism Palpitations Vitamin D deficiency disease Unspecified vitamin D deficiency documented in this encounter [employer] Phone: evalkohntt note* Diagnosis Acute cystitis with hematuria- Primary Acute cystitis Vaginal yeast infection Candidiasis of vulva and vagina documented in this encounter [employer] Phone: [email or web address] note* Diagnosis Women's annual routine gynecological examination Vaginal burning Other specified symptom associated with female genital organs documented in this encounter [employer] Phone: [email or web address] note* Diagnosis H/O repair of right rotator cuff Personal history of surgery to other organs documented in this encounter [employer] Phone: [email or web address] note* Diagnosis Visit for screening mammogram Other screening mammogram documented in this encounter [employer] Phone: evaluation noteNo assessment information [facility] Work Phone: Evaluation noteNo InformationNoLECOM Health [facility] Tymphany Other Evaluation note* Diagnosis Acute pharyngitis, unspecified etiology- Primary documented in this encounter [employer] Phone: evaluation note* Diagnosis Essential hypertension Unspecified essential hypertension Palpitations Hypothyroidism, unspecified type Hyperlipidemia, unspecified hyperlipidemia type Vitamin D deficiency disease Unspecified vitamin D deficiency documented in this encounter [facility] [employer] Phone: evaluation note* Diagnosis Non-recurrent acute suppurative otitis media of left ear without spontaneous rupture of tympanic membrane- Primary Acute nonintractable headache, unspecified headache type documented in this encounter [facility] Phone: evaluation note* Diagnosis Chronic low back pain with right-sided sciatica, unspecified back pain laterality- Primary documented in this encounter [facility] note* Diagnosis Renal cyst Unspecified congenital cystic kidney disease documented in this encounter [facility] CashkaroSELECT [facility]ICAL [facility] OHIOCloudnine Hospitalsnemours foundation note* Diagnosis Bruxism (teeth grinding)- Primary Other specified psychophysiological malfunction Acute suppurative otitis media of left ear without spontaneous rupture of tympanic membrane, recurrence not specified ROSETTE on CPAP Hearing loss, unspecified hearing loss type, unspecified laterality documented in this encounter [facility] note* Diagnosis Sensorineural hearing loss, bilateral- Primary Hearing loss, unspecified hearing loss type, unspecified laterality documented in this encounter [facility] note* Diagnosis COVID-19 virus infection- Primary documented in this encounter [facility]MARYMicro[facility] ([place])[facility]Sportodynemours foundation note* Diagnosis New onset atrial fibrillation (HCC)- Primary Atrial fibrillation Atrial fibrillation with RVR (HCC) Atrial fibrillation History of chronic kidney disease Personal history of other disorder of urinary system Symptoms of dehydration Fluid level behind tympanic membrane of both ears Acute pansinusitis, recurrence not specified Nausea vomiting and diarrhea Nausea with vomiting documented in this encounter [facility]MARY[facility] ([place] note* Diagnosis Paroxysmal atrial fibrillation (HCC)- Primary Atrial fibrillation documented in this encounter [facility]9facts [facility] note* Diagnosis Visit for screening mammogram Other screening mammogram documented in [facility] encounter [facility]* Diagnosis COVID-19 virus infection- Primary documented in this encounter [facility] CenterKoudaiH[facility] note* Diagnosis Sprain of right ankle, unspecified ligament, initial encounter- Primary documented in this encounter [facility] note* Diagnosis Grade 2 ankle sprain- Primary Pain in joint involving right ankle and foot Right foot pain Pain in soft tissues of limb Ankle instability, right documented in this encounter [facility]* Diagnosis 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 (male)(female) documented in this encounter [facility]em[facility] foundation note* Diagnosis Essential hypertension Unspecified essential hypertension Palpitations Hyperlipidemia, unspecified hyperlipidemia type Hypothyroidism, unspecified type Vitamin D deficiency disease Unspecified vitamin D deficiency documented in this encounter [facility] CenterEvalunemours foundation note* Diagnosis Essential hypertension Unspecified essential hypertension Palpitations Hyperlipidemia, unspecified hyperlipidemia type Hypothyroidism, unspecified type Vitamin D deficiency disease Unspecified vitamin D deficiency documented in this encounter [facility]* Diagnosis Essential hypertension Unspecified essential hypertension Palpitations Hyperlipidemia, unspecified hyperlipidemia type Hypothyroidism, unspecified type Vitamin D deficiency disease Unspecified vitamin D deficiency documented in this encounter [facility] CenterEvalunemours foundation note* Diagnosis Grade 2 ankle sprain- Primary Ankle instability, right Right foot drop Other acquired deformity of ankle and foot documented in this encounter [facility]em[facility]* Diagnosis Gross hematuria documented in this encounter [facility] CenterEvalunemours foundation note* Diagnosis Bacterial URI- Primary Dermatitis Contact dermatitis and other eczema, due to unspecified cause documented [facility]* Diagnosis Cough, unspecified type- Primary Sore throat Acute pharyngitis Nasal congestion Other diseases of nasal cavity and sinuses Cough, unspecified type documented in this encounter [facility] general Narrative - Reported* Type Description [...] History Epidural injections Hospitalization History see above [facility] Other [facility] general Narrative - Reported* Type [...] cuff tear repair Hospitalization History see above [facility] Other Hospital Discharge instructions* Attachments The following attachments cannot be sent through Care Everywhere. * Diarrhea (Mongolian) documented [facility] this [facility] Phone: hospital Discharge instructions* Attachments The following attachments cannot be sent through Care Everywhere. * Fatigue (Mongolian) * Diarrhea (Mongolian) * Stress Incontinence: Female (Mongolian) * Urge Incontinence: Female (Mongolian) documented in this [facility] Phone: hospital Discharge instructions* Attachments The following attachments cannot be sent through Care Everywhere. * UTI (Urinary Tract Infection): Female (Mongolian) * Vaginal Yeast Infection (Mongolian) documented in this [facility] Phone: hospital Discharge instructions No data available for this section [facility] Discharge instructions* Attachments The following attachments cannot be sent through Care Everywhere. * Otitis Media (Mongolian) * Headache (Mongolian) documented in this [facility]9facts [facility] CENTERChargePoint Technology Work Phone: hospital Discharge instructions* Attachments The following attachments cannot be sent through Care Everywhere. * Coronavirus Disease (COVID-19): General Info (Mongolian) documented in this [facility] Discharge instructions* Attachments The following attachments cannot be sent through Care Everywhere. * Supraventricular Tachycardia (Mongolian) documented in this [facility] Discharge instructions* Attachments The following attachments cannot be sent through Care Everywhere. * Ankle Sprain (Mongolian) * RICE: General Info (Mongolian) documented in this [facility] DouglasAdlog[facility] HealthInstructions* Attachments The following attachments cannot be sent through Care Everywhere. * Dermatitis (Mongolian) documented in this encounterOhioHealthInstructions* Attachments The following attachments cannot be sent through Care Everywhere. * Cough (Mongolian) documented in this encounterOhioHealthProgress note No data available for this section [facility] Reason for referral (narrative)No reason for referral information availableSumma Health Work Phone: Summary Purpose Family History No [...] FoundDocuments on File Type Date Recorded Patient Resident Assistant Cna Expl anation Advance Directives and Livin g Will Advance Directives and Livin g Will 03/01/2016 1:57 PM Power of Cuff Slitter Power of Cuff Slitter 03/01/2016 1:57 PM Latest Code Status on File Code Status Date Activated Date Inactivated Comments Full Code 02/21/2015 1:32 PM 02/21/2015 5:10 PM Full Code 02/21/2015 12:11 PM 02/21/2015 1:32 PM Full Code 01/31/2015 10:04 AM 01/31/2015 12:51 PM Full Code 01/31/2015 8:49 AM 01/31/2015 10:04 AM Full Code 04/30/2012 8:28 AM 04/30/2012 3:52 PM Documents on File Type Date Recorded Patient Resident Assistant Cna Expl anation Advance Directives and Livin g Will Advance Directives and Livin g Will 03/01/2016 1:57 PM Power of Cuff Slitter Power of Cuff Slitter 03/01/2016 1:57 PM Latest Code Status on File Code Status Date Activated Date Inactivated Comments Full Code 02/21/2015 1:32 PM 02/21/2015 5:10 PM Full Code 02/21/2015 12:11 PM 02/21/2015 1:32 PM Full Code 01/31/2015 10:04 AM 01/31/2015 12:51 PM Full Code 01/31/2015 8:49 AM 01/31/2015 10:04 AM Full Code 04/30/2012 8:28 AM 04/30/2012 3:52 PM Documents on File Type Date Recorded Patient Resident Assistant Cna Expl anation ACP-Advance Directive ACP-Advance Directive 03/01/2016 1:57 PM ACP-Power of Cuff Slitter ACP-Power of Cuff Slitter 03/01/2016 1:57 PM Documents on File Type Date Recorded Patient Resident Assistant Cna Expl anation ACP-Advance Directive ACP-Advance Directive 03/01/2016 1:57 PM ACP-Power of Cuff Slitter ACP-Power of Cuff Slitter 03/01/2016 1:57 PM Documents on File Type Date Recorded Patient Resident Assistant Cna Expl anation ACP-Advance Directive ACP-Power of Cuff Slitter ACP-Advance Directive 03/01/2016 1:57 PM ACP-Power of Cuff Slitter 03/01/2016 1:57 PM Documents on File Type Date Recorded Patient Resident Assistant Cna Expl anation ACP-Advance Directive ACP-Power of Cuff Slitter ACP-Advance Directive 03/01/2016 1:57 PM ACP-Power of Cuff Slitter 03/01/2016 1:57 PM Healthcare Agents on File [...] Documents on File Type Date Recorded Patient Resident Assistant Cna Expl anation ACP-Advance Directive 03/01/2016 1:57 PM ACP-Power of Cuff Slitter 03/01/2016 1:57 PM Healthcare Agents on File Name Relationship Healthcare Agent Relationshi p Communication Adeel Athy Spouse Primary Decision Maker Advance Directive Response Recorded Date/ Time Advance Directives No April 22, 2017 3:57pm Advance Directive Response Recorded Date/ Time Advance Directives No April 22, 2017 2:57pm Documents on File Type Date Recorded Patient Resident Assistant Cna Expl anation ACP-Advance Directive 03/01/2016 1:57 PM ACP-Power of Cuff Slitter 03/01/2016 1:57 PM Healthcare Agents on File [...] Documents on File Type Date Recorded Patient Resident Assistant Cna Expl anation ACP-Power of Cuff Slitter 03/01/2016 1:57 PM ACP-Advance Directive 03/01/2016 1:57 [...] Documents on File Type Date Recorded Patient Resident Assistant Cna Expl anation ACP-Power of Cuff Slitter 03/01/2016 1:57 PM ACP-Advance Directive 03/01/2016 1:57 [...] Communication Adeel Athy Spouse Primary Decision Maker atticacsaLeostream Healthcare Agents on File Name Relationship Healthcare [...] be sent through Care Everywhere. * Sinusitis (Mongolian) documented in this encounter* Attachments The following attachments cannot be sent through Care Everywhere. * Fatigue (Mongolian) * Vertigo (Mongolian) documented in this encounter Assessments Diagnosis Acute [...] Procedures EKG 12 Lead Reagan Givens MD [address] [place] [address] Status Reason Specialty Diagnoses / Procedures Referre d By Contact Referred To Contact Closed Radiology Diagnoses Screening mammogram, encounter for Procedures ANA WU DIGITAL SCREEN BILATERAL Roni Dahl MD [address] [place] [id number] [facility] [address] [place] [address] Specialty Diagnoses / Procedures Referred By Contac t Referred To Contact Cardiology Diagnoses Essential hypertension Palpitations Hypothyroidism, unspecified type Hyperlipidemia, unspecified hyperlipidemia type Vitamin D deficiency disease Procedures EKG 12 Reagan Atkins MD [address] [place] [address] Referral ID Status Reason Start Date Expiration Date Visits Re quested Visits Authorized [id number] Open 09/06/2021 09/06/2022 1 1 Status Reason Specialty Diagnoses / Procedures Referre d By Contact Referred To Contact Open Cardiology Diagnoses Essential hypertension Pure hypercholesterolemia Acquired hypothyroidism Palpitations Vitamin D deficiency disease Procedures EKG 12 Reagan Atkins MD [address] [place], [place] [id number] Specialty Diagnoses / Procedures Referred By Contac t Referred To Contact Radiology Diagnoses Visit for screening mammogram Procedures [facility] WU DIGITAL SCREEN BILATERAL Roni Dahl MD [address] [place] [address] Referral ID Status Reason Start Date Expiration Date Visits Re quested Visits Authorized [id number] Closed 01/25/2022 01/25/2023 1 1 Specialty Diagnoses / Procedures Referred By Contac t Referred To Contact Radiology Diagnoses Renal cyst Procedures US RENAL LIMITED Yanelis Guzman MD [address], [address] [place] [address] Referral ID Status Reason Start Date Expiration Date Visits Re quested Visits Authorized [id number] Open 03/13/2023 03/12/2024 1 1 Specialty Diagnoses / Procedures Referred By Contac t Referred To Contact Audiology Diagnoses Hearing loss, unspecified hearing loss type, unspecified laterality Grayson Hutchinson Jr., DO [address] [place] [address] Vignesh Mary, AuD [address] [place] [address] Referral ID Status Reason Start Date Expiration Date V isits Requested Visits Authorized [id number] Closed Specialty Services Required/Flower ent's Best Interest 05/02/2023 05/01/2024 1 1 Specialty Diagnoses / Procedures Referred By Contac t Referred To Contact Cardiology Diagnoses New onset atrial fibrillation (HCC) Atrial fibrillation with RVR (HCC) Procedures [address] - [place] Single/Multiple Event Recorder Lexy Tapia MD [address] [place] [address] [place] [address] Referral ID Status Reason Start Date Expiration Date Visits Re quested Visits Authorized [id number] Open 10/23/2023 10/22/2024 1 1 Referral ID Status Reason Start Date Expiration Date Visits Re quested Visits Authorized [id number] Closed 04/24/2024 04/24/2025 1 1 Specialty Diagnoses / Procedures Referred By Contac t Referred To Contact Cardiology Diagnoses Essential hypertension Palpitations Hyperlipidemia, unspecified hyperlipidemia type Hypothyroidism, unspecified type Vitamin D deficiency disease Procedures EKG 12 Lead Reagan Givens MD [address] [place] [id number] Referral ID Status Reason Start Date Expiration Date V isits Requested Visits Authorized [id number] Pending Review 09/01/2024 09/01/2025 1 1 Chief [...] section and content) DATE CREATED AUTHOR 12/24/2017 [facility] DATE CREATED AUTHOR AUTHOR'S ORGANIZ ATION 03/27/2018 [facility] DATE CREATED AUTHOR AUTHOR'S ORGANIZ ATION 07/13/2021 [facility] DATE CREATED AUTHOR AUTHOR'S ORGANIZ ATION 04/13/2023 [facility] DATE CREATED AUTHOR AUTHOR'S ORGANIZ ATION 05/06/2023 [facility] DATE CREATED AUTHOR AUTHOR'S ORGANIZ ATION 01/17/2024 [facility] DATE CREATED AUTHOR AUTHOR'S ORGANIZ ATION 08/31/2024 [facility] DATE CREATED AUTHOR AUTHOR'S ORGANIZ ATION 11/28/2024 [facility] EPIC DATE CREATED AUTHOR AUTHOR'S ORGANIZ ATION 12/23/2024 [facility] DATE CREATED AUTHOR AUTHOR'S ORGANIZ ATION 02/10/2025 [facility] DATE CREATED AUTHOR AUTHOR'S ORGANIZ ATION 02/27/2025 [facility] DATE CREATED AUTHOR AUTHOR'S ORGANIZ ATION 03/16/2025 [facility] ysician Group Reason for Visit (unrecogniz ed [...] MAMMOGRAM DIGITAL SCREEN Roni Sales MD [address] [place] [address] [facility] [address] [place] [address] Reason Comments Illness Pt has not been [...] DIGITAL SCREEN BILATERAL Roni Dahl MD [address] [place] [address] [facility] [address] [place] [address] Status Reason Specialty Diagnoses / Procedures Referred By Contact Referred To Contact Open Physical Therapy Diagnoses Shoulder pain, right Procedures physical therapy Christian Meyer, [address] [place] [address] Zo Chen, PT [address] [place] [address] Specialty Diagnoses / Procedures Referred By Contac t Referred To Contact Physical Therapy Diagnoses Shoulder pain, right Procedures physical therapy Christian Meyer DO [address] [place] [address] Zo Chen, PT [address] [place] [address] Referral ID Status Reason Start Date Expiration Date Visits Re quested Visits Authorized [id number] Open 04/28/2021 04/28/2022 99 99 Reason Comments Urinary Tract Infection Pt states that s he has been having painful urination x 10 days. Specialty Diagnoses / Procedures Referred By Juan Manuel garibay Referred To Contact Radiology Diagnoses Visit for screening mammogram Procedures [facility] WU DIGITAL SCREEN BILATERAL Roni Dahl MD [address] [place] [address] Referral ID Status Reason Start Date Expiration Date Visits Re quested Visits Authorized [id number] Closed 01/25/2022 01/25/2023 1 1 Reason Comments [...] working in the garden. Patient seen at [facility] this past Saturday and given cortisone/ muscle relaxer. Patient unable to relieve pain. 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 Patient states she has had left ear infections for most of her life. She was treated for ear infection with Augmentin in October. 3 weeks ago, woke up with extreme pain and was treated again for b/l ear infection. She returned to [facility] and was told that her ear was still infected. Last hearing test several years ago in [place]. 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 Saw Gann in 2019. Specialty Diagnoses / Procedures Referred By Juan Manuel garibay Referred To Contact Otolaryngology Diagnoses Acute suppurative otitis media of left ear without spontaneous rupture of tympanic membrane, recurrence not specified Andre Rowe, METAL ENGINEERING PROCESS WORKER [address] [place] [address] Grayson Hutchinson Jr., DO [address] [place] [address] Referral ID Status Reason Start Date Expiration Date V isits Requested Visits Authorized [id number] Closed Specialty Services Required/Flower ent's Best Interest 04/24/2023 04/23/2024 1 1 Specialty Diagnoses / Procedures Referred By Contac t Referred To Contact Audiology Diagnoses Hearing loss, unspecified hearing loss type, unspecified laterality Grayson Hutchinson Jr., DO [address] [place] [address] AlbaroriverMary Castano, AuD [address] [place] [address] Referral ID Status Reason Start Date Expiration Date V isits Requested Visits Authorized [id number] Closed Specialty Services Required/Flower ent's Best Interest [...] Expiration Date Visits Re quested Visits Authorized [id number] Closed 04/24/2024 04/24/2025 1 1 Reason Comments [...] Start Date End Da te nystatin (MYCOSTATIN) 661444 UNIT/ML suspension Take 5 mLs by mouth 4 times daily Swish and swallow. 200 mL 0 11/25/2022 amoxicillin-clavulanate (AUGMENTIN) 875-125 MG per tablet Take 1 tablet by mouth 2 times daily for 10 days 20 tablet 0 11/25/2022 12/05/2022 nystatin (MYCOSTATIN) [id number] UNIT/ML suspension Take 5 mLs by mouth [...] on the AUG. 1448 [facility]: Emily Choi RN) [...] Care Teams (unrecognized sec tion and content) Machine Tack Puller Relationship Specialty Start Date End Date Roni Dahl MD [address] [place] [address] PCP - General 07/15/12 Machine Tack Puller Relationship Specialty Start Date End Date Roni Dahl MD [address] [place] [address] PCP - General 07/15/12 Machine Tack Puller Relationship Specialty Start Date End Date Roni Dahl MD [address] [place] [address] PCP - General 07/15/12 Machine Tack Puller Relationship Specialty Start Date End Date Roni Dahl MD [address] [place] [address] PCP - General 07/15/12 Machine Tack Puller Relationship Specialty Start Date End Date Roni Dahl MD [address] [place] [address] PCP - General 07/15/12 Machine Tack Puller Relationship Specialty Start Date End Date Roni Dahl MD [address] [place] [address] PCP - General 07/15/12 Machine Tack Puller Relationship Specialty Start Date End Date Roni Dahl MD [address] [place], [place] [phone] PCP - General 07/15/12 Machine Tack Puller Relationship Specialty Start Date End Date Roni Dahl MD [address] [place] [address] PCP - General 07/15/12 Machine Tack Puller Relationship Specialty Start Date End Date Roni Dahl MD [address] [place], [place] [phone] PCP - General 07/15/12 Machine Tack Puller Relationship Specialty Start Date End Date Roni Dahl MD [address] [place] [address] PCP - General 07/15/12 Machine Tack Puller Relationship Specialty Start Date End Date Roni Dahl MD [address] [place] [address] PCP - General 07/15/12 Machine Tack Puller Relationship Specialty Start Date End Date Roni Dahl MD [address] [place] [address] PCP - General 07/15/12 Team Status: Inactive [...] Active Yanelis Garcia MD Attending Provider Active Machine Tack Puller Relationship Specialty Start Date End Date Roni Dahl MD [address] [place] [address] PCP - General 07/15/12 Machine Tack Puller Relationship Specialty Start Date End Date Roni Dahl MD [address] [place] [address] PCP - General 07/15/12 Machine Tack Puller Relationship Specialty Start Date End Date Roni Dahl MD [address] [place] [address] PCP - General 07/15/12 Machine Tack Puller Relationship Specialty Start Date End Date Roni Dahl MD [address] [place] [address] PCP - General 07/15/12 Machine Tack Puller Relationship Specialty Start Date End Date Roni Dahl MD [address] [place] [address] PCP - General 07/15/12 Team Status: Inactive Member Role Status Dates Roni Dahl MD Primary Care Provider Active Jesus Vasquez APRN Emergency Provider Active Machine Tack Puller Relationship Specialty Start Date End Date Roni Dahl MD [address] [place] [address] PCP - General 07/15/12 Team Status: Inactive Member Role Status Dates Roni Dahl MD Primary Care Provider Active Mukul Wilson MD Attending Provider Active Machine Tack Puller Relationship Specialty Start Date End Date Roni Dahl MD [address] [place] [address] PCP - General 07/15/12 Machine Tack Puller Relationship Specialty Start Date End Date Roni Dahl MD [address] [place] [phone] PCP - General Family Medicine 04/24/23 Machine Tack Puller Relationship Specialty Start Date End Date Roni Dahl MD [address] [phone] PCP - General Family Medicine 04/24/23 Team Status: Inactive Member Role Status Dates Roni Dahl MD Primary Care Provider Active Obie Hylton MD Attending Provider Active Machine Tack Puller Relationship Specialty Start Date End Date Roni Dahl MD [address] [place] [phone] [facility] General 07/15/12 Team Status: Inactive Member Role Status Dates Roni Dahl MD Primary Care Provider Active Start: September 19, 2023 End: September 19, 2023 DENISHA Cedeño Attending Provider Active Start: September 19, 2023 End: September 19, 2023 Machine Tack Puller Relationship Specialty Start Date End Date Roin Dahl MD [address] [phone] PCP - General 07/15/12 Machine Tack Puller Relationship Specialty Start Date End Date Roni Dahl MD [address] [place] [address] PCP - General 07/15/12 Team Status: Inactive [...] February 06, 2024 End: February 06, 2024 Machine Tack Puller Relationship Specialty Start Date End Date Roni Dahl MD [address] [place] [address] PCP - General 07/15/12 Machine Tack Puller Relationship Specialty Start Date End Date Roni Dahl MD [address] [place] [address] PCP - General 07/15/12 Team Status: Inactive Member Role Status Dates Roni Dahl MD Primary Care Provider Active Start: August 11, 2024 End: August 11, 2024 Obie Hylton MD Attending Provider Active St art: August 11, 2024 End: August 11, 2024 Machine Tack Puller Relationship Specialty Start Date End Date Roni Dahl MD [address] [place] [address] PCP - General Family Medicine 08/17/24 Machine Tack Puller Relationship Specialty Start Date End Date Roni Dahl MD [address] [place] [address] PCP - General Family Medicine 08/17/24 Machine Tack Puller Relationship Specialty Start Date End Date Roni Dahl MD [address] [place] [address] PCP - General 07/15/12 Machine Tack Puller Relationship Specialty Start Date End Date Roni Dahl MD [address] [place] [address] PCP - General 07/15/12 Machine Tack Puller Relationship Specialty Start Date End Date Roni Dahl MD [address] [phone] PCP - General 07/15/12 Team Status: Inactive Member Role Status Dates Roni Dahl MD Primary Care Provider Active Start: September 10, 2024 End: September 10, 2024 Nuvia Sanchez NP-Vazquez Attending Provider Active Start: September 10, 2024 End: September 10, 2024 Machine Tack Puller Relationship Specialty Start Date End Date Roni Dahl MD [address] [phone] PCP - General Family Medicine 08/17/24 Machine Tack Puller Relationship Specialty Start Date End Date Roni Dahl MD [address] [place] [address] PCP - General Family Medicine 08/17/24 Machine Tack Puller Relationship Specialty Start Date End Date Roni Dahl MD [address] [phone] PCP - General 07/15/12 Machine Tack Puller Relationship Specialty Start Date End Date Roni Dahl MD [address] [phone] PCP - General Family Medicine 04/24/23 Machine Tack Puller Relationship Specialty Start Date End Date Roni Dahl MD [address] [phone] PCP - General Family Medicine 04/24/23 Team [...] BE BASED ON THE PRIMARY CLINICAL RECORDS. [facility] [employer] [facility] [employer] provides no warranty or guarantee of the accuracy or completeness of information in this document.
[2025-04-12 11:28] VITALS: BP 139/64; BP 140/65; PULSE 64; PULSE 65; O2SAT 96; O2SAT 97
[2025-04-12] MEDS: 0.9 % SODIUM CHLORIDE 10 ML SYRINGE - SALINE FLUSH INJ (11:29)
[2025-04-12] MEDS: BUPIVACAINE HCL 0.25% PF 25 MG/10 ML VIAL INJ (11:30)
[2025-04-12] MEDS: LIDOCAINE HCL 2% 400 MG/20 ML MDV INJ (11:30)
[2025-04-12] MEDS: METHYLPREDNISOLONE ACETATE 80 MG/ML VIAL INJ (11:30)
[2025-04-12] MEDS: IOHEXOL 240 MG/ML - 10 ML VIAL INJ (11:30)
--- NOTE | 2025-04-12 11:34 | P.ON_ITS ---
Date of procedure: 04/12/25 Pre-op diagnosis: Pain due to lumbar stenosis with neurogenic claudication Post-op diagnosis: same as pre-op Procedure: Procedure: Right L5-S1, S1-2 transforaminal epidural steroid injection Medications: Bupivacaine 0.25% 2cc, lidocaine 2% 1cc, depomedrol 80mg The patient was seen and examined in the preoperative holding area.? Informed consent was obtained and placed on the chart.? Patient was brought to the medical procedure unit and placed in the prone position where a timeout was completed verifying the correct patient, procedure site, position, and planned special equipment using sterile aseptic technique.? Under direct fluoroscopic visualization a 25-gauge Quincke tipped spinal needle was advanced to the designated neural foramen where contrast dye was injected to show adequate spread.? The needle was inserted at level right L5-S1. There was no evidence of vascular or adverse uptake.? Epidural spread was appreciated.? The above- mentioned injectate was then placed in a 1.5 mL aliquot preceded by negative aspiration.? The needle was removed. The needle was inserted and the procedure repeated at level right S1-2.? The surgery site was covered.? Patient was taken to the postprocedural recovery area and monitored for an appropriate length of time before found suitable for discharge in the accompaniment of a responsible adult. Anesthesia: Local Surgeon: Trevon Harris Pathology: none sent Condition: stable Disposition: no change
== END 2025-04-12 11:56 | disposition home or self-care (01) ==
PROVIDERS: PCP Family Medicine; Visit Provider Anesthesiology
DX: M48.062 Spinal stenosis, lumbar region with neurogenic claudication (principal); M54.50 Low back pain, unspecified
CPT/HCPCS: 64483; 64484; J0665; J1010; Q9966

== ENCOUNTER 2025-04-29 13:50 | Outpatient (OUT) | payer MEDICARE, SELFPAY ==
--- OUTSIDE RECORDS SUMMARY | 2025-04-29 13:54 | XMS_ITS | Clinical Summary ---
Author Organization [facility] Address [address] [place] [address] Care Team Providers Care Jewelry Sorter Name Role Phone Rocio Dahl MD Primary Care Provider [phone] Allergies Active AllergyReactionsCriticalityNoted DateCommentsGluten FlourGI Upset,Itching 03/10/2018Escitalopram YyfbwgnYybjgcy01/19/1215Txkllcqc19/04/2008Sulfa (Sulfonamide Antibiotics)07/04/2007 Medications MedicationSigDispense QuantityRefillsLast FilledStart DateEnd DateStatus levothyroxine sodium(LEVOTHROID 88 MCG TAB) take one tablet ngugn539Active rabeprazole sodium(ACIPHEX 20 MG TAB) take one tablet nhswn171Active EZETIMIBE 10 MG TAB take one tablet wadui805ctive topiramate(TOPAMAX 50 MG TAB) take two tablet sveht099ctive lansoprazole(PREVACID 15 MG CAP) take one tablet mxwea149ctive sertraline hcl(ZOLOFT 50 MG TAB) take one and one half tablet HSActive ALPRAZOLAM 0.5 MG TAB take one or two tablets at HSctive rizatriptan benzoate(MAXALT 10 MG TAB) take with /04/2007ctive psyllium husk(METAMUCIL 0.52 G CAP) take as kwijrzsl909/04/2007ctive calcium/mag/vitamin d2/zn/min(ASHLY-MAG ZINC II ORAL SUSP) take one tablet zwcjg546ctive aspirin, enteric coated (ASPIRIN, ENTERIC COATED) 81 mg EC tablet Take 81 mg by mouth once daily.Active esomeprazole (NEXIUM) 40 mg capsule Take 40 mg by mouth twice daily.Active citalopram (CELEXA) 20 mg tablet Take 20 mg by mouth once daily.Active ibuprofen (MOTRIN) 200 mg tablet Take 200 mg by mouth every 6 hours as needed.Active loratadine (CLARITIN) 10 mg tablet Take 10 mg by mouth once daily.Active clarithromycin (BIAXIN) 500 mg tab Take by mouth every 12 hours.Active multivitamin with minerals (MULTIPLE VITAMIN-MINERALS) tablet Take 1 tablet by mouth once daily.Active Cholecalciferol, Vitamin D3, (VITAMIN D) 1,000 unit cap Take 1,000 Units by mouth once daily.Active triamterene-hydrochlorothiazide 37.5-25 mg per capsule Take 1 capsule by mouth once daily.Active pilocarpine (SALAGEN) 5 mg tablet Take 5 mg by mouth three times daily.Active levothyroxine (SYNTHROID) 50 mcg tablet Take 50 mcg by mouth daily before breakfast.Active docusate sodium (STOOL SOFTENER) 100 mg capsule Take 100 mg by mouth twice daily.Active pravastatin (PRAVACHOL) 40 mg tablet Take 40 mg by mouth once daily.Active diltiazem (CARDIZEM) 30 mg tablet Take 30 mg by mouth as needed.Active raloxifene (EVISTA) 60 mg tablet Take 60 mg by mouth once daily.Active Social History Tobacco UseTypesPacks/DayYears UsedDateSmoking Tobacco: NeverSmokeless Tobacco: Never Tobacco Cessation:Counseling Given: No Alcohol UseStandard Drinks/WeekCommentsNo0 (1 standard drink = 0.6 oz pure alcohol)Area Deprivation IndexAnswerDate RecordedNational Score (1-100), lower number is lower riskNot on file06/06/2020State Score (1-10), lower number is lower riskNot on file06/06/2020Data from: https://www.neighborhoodatlas.medicine.[facility].edu/. Last address used for calculationNot on file06/06/2020CommentsUnknownSex and Gender InformationValueDate RecordedSex Assigned at BirthNot on fileLegal SexFemale 06/01/2012 8:11 AM ESTGender IdentityNot on fileSexual OrientationNot on file Last Filed Vital Signs Vital SignReadingTime TakenCommentsBlood Ffkuhsge460/7709 10:04 AM EDT Sxoso0602 10:04 AM EDTTemperature--Respiratory Vkvy594203/10/2018 10:04 AM EDTOxygen Saturation--Inhaled Oxygen Concentration--Ocejdg901.1 kg (225 lb) 03/10/2018 10:04 AM OXQYbuhyo781.6 cm (5' 4 )03/10/2018 10:04 AM EDTBody Mass Index38.62003/10/2018 10:04 AM EDT Plan of Treatment Health MaintenanceDue DateLast DoneCommentsAnxiety Uicmulhne46/20/1963Depression Erwobbwzm00/20/1963Diabetes Rdobsewyb90/20/1990Bone Density Pkgvagmny51/20/2010 Shingrix Vaccine (2 of 3)DTaP,Tdap,Td Vaccine (1 - Tdap) RSV Vaccine (1 - 1-dose 75+ series)12/19/2019Advance Directive Xhbqnkatxo94/01/2025ovid-19 Vaccine (1 - 2024- season)2025 Influenza Vaccine (#1)Pneumococcal Vaccine: 50+Completed 03/01/2016, 03/31/2011 Insurance Care Teams Team MemberRelationshipSpecialtyStart DateEnd Date Rocio Dahl MD [facility]05/05/07
--- OUTSIDE RECORDS SUMMARY | 2025-04-29 13:54 | XMS_ITS | Clinical Summary ---
Author Organization [facility] Address [address] [place] [address] Phone Care Team Providers Care Instrument Inspector Name Role Phone Unavailable Primary Care Provider Unavailabl e Social History Tobacco UseTypesPacks/DayYears UsedDateSmoking Tobacco: Never Assessed CommentsUnknownSex and Gender InformationValueDate RecordedSex Assigned at Not on fileLegal GdiOksrmo55/26/2022 8:03 PM ESTGender IdentityNot on fileSexual OrientationNot on file Plan of Treatment Not on file
--- OUTSIDE RECORDS SUMMARY | 2025-04-29 13:54 | XMS_ITS | Clinical Summary ---
Author Organization [facility] Address [address] [place] [address] Care Team Providers Care Ice Puller Name Role Phone Rocio Dahl MD Primary Care Provider [phone] Allergies Active AllergyReactionsCriticalityNoted DateCommentsEscitalopramItching,RashLow 08/19/2007 Other reaction(s): Redness of Skin Other reaction(s): Redness of Skin Other reaction(s): Redness of Skin DbwltkkkackhrtuyvbtKfozVox51/20/2019IbuprofenGI Intolerance,BeyzBha0401/29/2019 LatexItching,Rash,Other (See Comments)Low02/08/2011 Added based on information entered during case entry, please review and add reactions, type, and severity as needed Added based on information entered during case entry, please review and add reactions, type, and severity as needed Added based on information entered during case entry, please review and add reactions, type, and severity as needed MorphineGI Intolerance,Other (See Comments)07/04/2007 Other reaction(s): Other (See Comments) Other reaction(s): Hallucinating, vomiting Other reaction(s): Hallucinating, vomiting Other reaction(s): Hallucinating, vomiting Sulfa (Sulfonamide Antibiotics)Hives05/02/2023Sulfamethoxazole-TrimethoprimRash, Other (See Comments)Low02/03/20230637WngjhzWsruawi45/21/2020TriamtereneRashMedium 01/29/20197058TvxviBgusuoo81/11/2011 Wheat gluten Medications MedicationSigDispense QuantityRefillsLast FilledStart DateEnd DateStatus ALPRAZolam (NIRAVAM) 0.5 MG dissolvable tablet Dissolve 1 (one) tablet (0.5 mg total) on top of tongue .11/13/2011ctive aspirin 81 MG EC tablet Aspir- ActiveActive calcium carbonate (OS-ASHLY) 600 mg calcium (1,500 mg) tablet Take 1 (one) tablet (600 mg total) by mouth 2 (two) times a day with meals . Active citalopram (CELEXA) 20 MG tablet Take 1 (one) tablet (20 mg total) by mouth every night at bedtime .04/11/2015 Active cyanocobalamin (B-12) 1000 MCG tablet Take 1 (one) tablet (1,000 mcg total) by mouth daily .Active docusate sodium (COLACE) 100 MG capsule Take 1 (one) capsule (100 mg total) by mouth daily .05/20/2019Active estradioL (ESTRACE) 0.01 % (0.1 mg/gram) vaginal cream Insert 1 (one) g into the vagina daily .12/11/2022ctive fexofenadine (MELANIA) 180 MG tablet Take 1 (one) tablet (180 mg total) by mouth once .01/10/2018Active fluticasone propionate (FLONASE) 50 mcg/actuation nasal spray Instill 1 (one) spray into each nostril daily .03/01/2021ctive levothyroxine (SYNTHROID, LEVOTHROID) 50 MCG tablet TAKE 1 TABLET EVERY DAY FOR SBGCDKMVHRYPHV69/05/2015ctive pantoprazole (PROTONIX) 20 MG tablet Take 1 (one) tablet (20 mg total) by mouth daily .05/15/2021ctive pilocarpine (SALAGEN) 5 MG tablet Take 1 (one) tablet (5 mg total) by mouth 3 (three) times a day .12/29/2017 Active pravastatin sodium (PRAVASTATIN ORAL) Take 40 mg by mouth .11/13/2011ctive psyllium (METAMUCIL) 0.52 gram capsule Take by mouth See Admin Instructions .07/04/2006ctive topiramate (TOPAMAX) 50 MG tablet Take 1 (one) tablet (50 mg total) by mouth daily .07/04/2006ctive cholecalciferol, vitamin D3, 25 mcg (1,000 unit) capsule Take 1 (one) capsule (1,000 Units total) by mouth daily .Active apixaban 5 mg Tab Take 1 (one) tablet (5 mg total) by mouth 2 (two) times a day .4Active loratadine 10 mg cap Take by mouth .07/17/2021ctive amoxicillin-clavulanate (AUGMENTIN) 875-125 mg per tablet Take 1 (one) tablet by mouth 2 (two) times a day . 20 tablet 5Active Additional Information Patient not taking.Reported on 02/05/2025 betamethasone valerate (VALISONE) 0.1 % cream Apply topically daily . 30 g 506Active Active Problems ProblemNoted DateDiagnosed DateAcute suppurative otitis media of left ear without spontaneous rupture of tympanic fqvgxjef18/02/2023OSA on CPAP05/02/2023 Bruxism (teeth grinding)05/02/2023Hearing loss05/02/2023 Encounters DateTypeDepartmentCare XhyvQuwkqdvrmpz30/08/2025 10:00 AM EDTOffice Visit [facility] [place] [address] [place] [address] Cinthya Fortune PA-C Cough, unspecified type (Primary Dx); Sore throat; Nasal congestionfrom Last 3 Months Family History Medical HistoryRelationCommentsDiabetesMotherDiabetesSisterDiabetesSonRelation StatusCommentsMotherDeceasedSisterSonOther Social History Tobacco UseTypesPacks/DayYears UsedDateSmoking Tobacco: NeverSmokeless Tobacco: Never Tobacco Cessation:Counseling Given: Not Answered Alcohol UseStandard Drinks/WeekCommentsNot Currently0 (1 standard drink = 0.6 oz pure alcohol)CommentsUnknownSex and Gender InformationValueDate Recorded Sex Assigned at BirthNot on fileLegal HqpFszfqh07/22/2015 8:28 AM EDTGender IdentityNot on fileSexual OrientationNot on file Last Filed Vital Signs Vital SignReadingTime TakenCommentsBlood Qvfkzmel610/6508 9:34 AM EDT Wjubt7106 9:34 AM NHZAkbqoibsnvp40.9 ??C (98.5 ??F)02/05/2025 9:34 AM EDTRespiratory Abpu586702/05/2025 9:34 AM EDTOxygen Nbsmqpcaxy85%02/05/2025 9:34 AM EDTInhaled Oxygen Concentration--Bzeyyp69.1 kg (214 lb)02/05/2025 9:34 AM EDT Cvkxpk849.6 cm (5' 4 )05/02/2023 8:55 AM EDTBody Mass Index36.7305/02/2023 8:55 AM EDT Plan of Treatment Health MaintenanceDue DateLast DoneCommentsDexa Scan1944Depression Screening/Follow-Up (PHQ-2/9)1956Falls Risk Zkihahfqtl68/20/2010 Tetanus/Diphtheria/Pertussis (1 - Tdap)Medicare Wellness Visit, 05/03/2022, 05/02/2021, Additional history exists COVID-19 Vaccine ( season)/01/2022, 06/27/2021, 08/26/2020, Additional history existsInfluenza Vaccine (#1)/07/2023, 05/06/2023, 05/03/2022, Additional history fexfndQyslpysdq14/08/202511/01/2024, 11/09/2019, 03/13/2018Pneumococcal Vaccine: 50+ CameiIhhxsqabe38/01/2016, 03/31/2011Zoster MoceqjkwLpwgcwlxe78/12/2020, 03/15/2020, 10/24/2011RSV Vaccines Tupfjazsl44/24/2024HIB VaccinesAged OutNo longer eligible based on patient's age to complete this topicHPV VaccinesAged OutNo longer eligible based on patient's age to complete this topicHepatitis A VaccinesAged OutNo longer eligible based on patient's age to complete this topicHepatitis B VaccinesAged OutNo longer eligible based on patient's age to complete this topicIPV VaccinesAged OutNo longer eligible based on patient's age to complete this topicMeningococcal ACWY VaccineAged OutNo longer eligible based on patient's age to complete this topic Meningococcal B VaccineAged OutNo longer eligible based on patient's age to complete this topicRotavirus VaccinesAged OutNo longer eligible based on patient's age to complete this topic Procedures Procedure NamePriorityDate/TimeAssociated DiagnosisCommentsXR CHEST AP/PA AND KTQBJDG1402/05/2025 10:08 AM EDT Cough, unspecified type from Last 3 Months Results * XR Chest AP/PA and LAT (02/05/2025 10:08 AM EDT)Anatomical RegionLaterality ModalityChestDigital RadiographySpecimen (Source)Anatomical Location / LateralityCollection Method / VolumeCollection TimeReceived Time02/05/2025 10:30 AM EDT Impressions 02/05/2025 10:31 AM EDT There is no acute cardiopulmonary process. Workstation ID: ?? [id number] Narrative 02/05/2025 10:31 AM EDT EXAMINATION: XR CHEST AP/PA AND LAT HISTORY: ORDERING SYSTEM PROVIDED HISTORY: ??Cough, unspecified type, TECHNOLOGIST PROVIDED HISTORY: Illness/Other Reason for exam: cough Cancer History: u Surgery, RadiationHistory: u Encounter Type: Initial Additional signs and symptoms: congestion x 1 month ORDERING SYSTEM PROVIDED DIAGNOSIS CODES: R05.9 Cough, unspecified type COMPARISON: None. TECHNIQUE: PA and lateral views of the chest performed. FINDINGS: The trachea is midline. ??The heart size is normal. ??There is mild atheromatous calcification at the aortic arch. ??The hilar shadows are unremarkable. ??There is no consolidation, pleural effusion or pulmonary vascular congestion. ??There is no pneumothorax or acute osseous abnormality. ??The bony structures are osteopenic. 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 ??Surgical clips within the right upper abdomen suggesting [...] no acute cardiopulmonary process. Workstation ID: [id number] Authorizing ProviderResult TypeResult StatusNikayleen KWONG-LAWRENCE F. QU[facility] MEM[facility]IAL HOSPITALJose Carlos DIAGNOSTIC IMAGING ORDERABLESFinal Result from Last 3 Months Insurance Care Teams Team MemberRelationshipSpecialtyStart DateEnd Date Rocio Dahl MD [address] [place] [address] [facility]04/24/23
--- OUTSIDE RECORDS SUMMARY | 2025-04-29 13:55 | XMS_ITS | Patient Health Record ---
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 Role Phone Rocio Dahl Primary Care Provider Bello Sahu Unavailable [phone] Eliza Salas Unavailable [phone] Allergies Allergen (clinical drug ingredient) Drug/Non Drug Allergy documented on EMR Reaction Allergy Type Onset Date Status sulfamethoxazole / trimethoprim Bactrim Unknown Drug Allergy ActivemorphinemorphineUnknownDrug AllergyActive Results Component Value Reference Range Notes Pneumatic Walking Boot OTS Reviewed date:07/16/2024 03:25:04 PM Interpretation: Performing Lab: Notes/Report: Reason For Referral No Information Medications Medication SIG (Take, Route, Frequency, Duration) Notes Start Date End Date Status estradiol ActiveClaritinActivetopiramateActivedilTIAZemActiveVitamin U4Quwcjtyerngcsq ActiveapixabanActivefluticasoneActivelevothyroxineActivepregabalinActive MetamucilActivepilocarpineActivemagnesium citrateActivepravastatinActive citalopramActiveondansetronActiveaspirinActivepantoprazoleActivecalcium citrate Active Social History Tobacco Use: Social History Observation Description Date Details (start date - stop date) Never Smoker NA - NA Tobacco Control (Standard) Question Answer Notes Tobacco use: Nonsmoker Problems Problem Type SNOMED Code ICD Code Onset Dates Problem Status W/U Status Risk Notes Problem 811962807 Primary osteoarthritis of ri ght ankle (M19.071) Activeconfirmed Encounters Encounter Location Date Provider Diagnosis [facility] [address] [place] [address] 07/15/2024 Eliza Salas Primary osteoarthrit is of right ankle M19.071 and Peroneal tendinitis, right leg M76.71 [facility] [address] [place] [address] [place] [address] 08/05/2024 Eliza Salas Primary osteoarthrit is of right ankle M19.071 Assessments Encounter Date Diagnosis (ICD Code) Assessment Notes Treatment Notes Treatment Clinical Notes Section Notes 07/15/2024 Peroneal tendinitis, right leg ( ICD-10 - M76.71) 07/15/2024Primary osteoarthritis of right ankle (ICD-10 - M19.071)08/05/2024 Primary osteoarthritis of right ankle (ICD-10 - M19.071)07/15/2024Other I have recommended immobilization in a cam boot for the treatment of her peroneal tendinitis. I prescribed a Rollator to help offload weight. She'll continue with icing. We'll follow-up with her in the next few weeks and if still having problems we discussed possible further imaging. Plan has been agreed upon by my supervising physician, Dr. Mis MD. 08/05/2024Other She is doing really well and will transition to a regular shoe as tolerated. She will call with anyconcerns and follow up as needed. Plan has been agreed upon by my supervising physician, Dr. Mis MD. Plan Of Treatment No Information Insurance Providers Payer Name Payer Address Payer Phone Subscriber Number Group Number Insured Name Patient Relationship to Insured Coverage Start Date Coverage End [place] [address] [place] [address] [id number] Gurmeet RIOS - [facility] is the insured[facility] InsurancePO [address] [address] [place] [id number], SHIRLEYSelf - patient is the insured Medical (General) History Medical History History ICD Code Respiratory problems: HypothyroidismGI Problems:DepressionKidney troubleSleep apneaCPAP Machine:Latex AllergyDrug AllergiesSurgical History Surgery Date(Month/Year) Right ankle Left hipBil knee
--- OUTSIDE RECORDS SUMMARY | 2025-04-29 13:55 | XMS_ITS | Clinical Summary ---
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 Name Role Phone Rocio Dahl MD Primary Care Provider [phone] Allergies Active AllergyReactionsCriticalityNoted DateCommentsElemental SulfurItching 02/19/2020EscitalopramItching,OfudVkl5308/19/2007 Other reaction(s): Redness of Skin Gluten MealGI intolerance,Lkpjotf4403/10/20184384KdgkfpmzbgfeoxwflnmWqprCme87/21/2020 IbuprofenRash,GI bnflmhggpnoEbl35/01/2019LatexItching,FzyoMnu0302/08/2011 Added based on information entered during case entry, please review and add reactions, type, and severity as needed MorphineOther,GI bimdruxdftr36/04/2008 Other reaction(s): Hallucinating, vomiting Sulfa AntibioticsItching,Hives,PlsiOnp8907/04/2007 hands red Sulfamethoxazole-KlwnchwtnxheUabsNsn15/06/4190GesoxcpdoaoAoktYnlclx73/01/2019 DdpggXnadpez11/11/2011 Wheat gluten Medications MedicationSigDispense QuantityRefillsLast FilledStart DateEnd DateStatus aspirin 81 MG EC tablet Take 81 mg by mouth in the morning.Active calcium carbonate 1500 (600 Ca) MG tablet Take 600 mg by mouth in the morning and 600 mg in the evening. Take with meals. Active cholecalciferol (Vitamin D-3) 50 MCG (2000 UT) capsule Take 2,000 Units by mouthActive citalopram (CeleXA) 20 MG tablet Take 20 mg by mouth in the morning.Active cyanocobalamin (Vitamin B-12) 1000 MCG tablet Take 1 tablet by mouth DailyActive Docusate Sodium (DSS) 100 MG capsule Take 1 capsule by mouth DailyActive estradiol (Estrace) 0.1 MG/GM vaginal cream Insert 1 g into the vvgbtg8812/11/2022ctive famotidine (Pepcid) 20 MG tablet Take 20 mg by mouth.07/10/2022ctive fluticasone (Flonase) 50 MCG/ACT nasal spray Administer 1 spray into affected nostril(s) Daily03/29/2022ctive levothyroxine (Synthroid, Levoxyl) 50 MCG tablet 12/20/2022ctive pantoprazole (ProtoNix) 20 MG EC tablet Take 20 mg by mouth.07/10/2022ctive pilocarpine (Salagen) 5 MG tablet Take 5 mg by mouth in the morning and 5 mg at noon and 5 mg in the evening. Active pravastatin (Pravachol) 40 MG tablet Take 40 mg by mouth in the morning.Active Topiramate (TOPAMAX PO) Take 50 mg by mouth07/26/2022ctive tiZANidine (Zanaflex) 2 MG tablet Indications:Spasm of muscle of lower backTake 1 tablet (2 mg) by mouth every 8 (eight) hours if needed for muscle spasms for up to 10 days. 30 tablet 02/03/2023ctive traMADol ER (Ultram-ER) 100 MG 24 hr tablet Take by mouth Daily as needed Do not crush, chew, or split.Active Active Problems ProblemNoted DateDiagnosed DateEpigastric pain08/17/2024History of arthritis 08/17/2024History of colon zlslzg4608/17/2024Internal rxesuqlzcjd66/17/2025 Intestinal metaplasia of yrefkdb7108/17/2024Low vitamin B12 level08/17/2024TMJ (temporomandibular joint disorder)08/17/2024Primary osteoarthritis of right ankle08/17/2024trial opflsicwnzei28/13/2024Gross /15/2024 Asymptomatic microscopic /06/2023hronic back pain02/03/2023Mixed stress and urge urinary odzasdkdapfr92/06/2023Localized, primary osteoarthritis of shoulder xbvsee0302/09/2022hronic renal disease, stage III10/26/2021 Djagzhjomjeefx68/03/2021Tubular adenoma of colon03/03/2021Vitamin D deficiency jvvastc3207/21/2018Cortical senile yemnlrea68/03/2015Sleep apnea08/21/2012 Overview (08/17/2024): USES CPAP Ryaaoaago68/05/6889Fntcroyqgeys86/09/2011Diaphragmatic qxifxs7504/24/2011Dysthymic zmebrwmx80/25/2011History of benign neoplasm of uydpzea9604/24/2011Irritable bowel fgvfuobv34/25/0610Gwjldaypzfyu12/25/2011Sinusitis, ymxddud7904/24/2011 Lmiuxffznuimnuzmlpsj11/11/6541Yblcttoiskexid29/11/5170Wepfzdeqxzancv71/11/2011 Oqzpgphx28/11/2011 Family History Medical HistoryRelationNameCommentsDiabetesChildHeart diseaseMaternal GrandfatherHyperlipidemiaMaternal GrandfatherCOPDMotherDiabetesMotherHeart failureMotherDiabetesPaternal GrandmotherHeart diseasePaternal Grandmother HypertensionPaternal GrandmotherBreast cancerSisterDiabetesSisterRelationName StatusCommentsChildFatherDeceasedMaternal GrandfatherMotherDeceasedPaternal GrandmotherSister Social History Tobacco UseTypesPacks/DayYears UsedDateSmoking Tobacco: NeverSmokeless Tobacco: Never Tobacco Cessation:Counseling Given: Not Answered Alcohol UseStandard Drinks/WeekCommentsNever0 (1 standard drink = 0.6 oz pure alcohol)caffeine: 1-2 cups per day coffeeCommentsUnknownSex and Gender InformationValueDate RecordedSex Assigned at BirthNot on fileLegal SexFemale 09/12/2022 6:41 PM EDTGender IdentityNot on fileSexual OrientationNot on file Last Filed Vital Signs Vital SignReadingTime TakenCommentsBlood Hxcgrfqj707/7311/26/2024 9:21 AM EDT Nagyg833811/26/2024 9:21 AM ZGFIusvpgbdnsh89.4 ??C (97.5 ??F)02/03/2023 11:01 AM EDTRespiratory Qana390008/17/2024 1:49 PM ESTOxygen Eairskmjei61%02/03/2023 11:01 AM EDTInhaled Oxygen Concentration--Qpjywx67.2 kg (212 lb)11/26/2024 9:21 AM EDT Sudsum258.8 cm (5' 4.5 )11/26/2024 9:21 AM EDTBody Mass Index35.8311/26/2024 9:21 AM EDT Plan of Treatment Health MaintenanceDue DateLast DoneCommentsInfluenza Vaccine (#1)03/01/2025 03/31/2024, 05/06/2023, 05/03/2022, Additional history existsPneumococcal Vaccine: 65+ LsahhYtazcdqdy17/01/2016, 03/31/2011 Insurance Care Teams Team MemberRelationshipSpecialtyStart DateEnd Rocio Dahl MD [address] [place] [address] PCP - GeneralFamily Medicine08/17/24
--- OUTSIDE RECORDS SUMMARY | 2025-04-29 14:07 | XMS_ITS | CCD ---
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 Name Role Phone JAMISON OWENS Unavailable Unavailable [...] Attending Provider MD Daniel Hylton Attending Provider [phone] MD Roni Dahl Primary Care Provider MD Yanelis Garcia Attending Provider Yanelis Garcia Unavailable MD Roni Dahl Primary Care Provider MD Daniel Hylton Attending Provider MD Yanelis Garcia Attending Provider [phone] MD Roni Dahl Primary Care Provider Roni Dahl MD Primary Care Provider MD Roni Dahl Primary Care Provider MD Yanelis Garcia Attending Provider MD Roni Dahl Primary Care Provider MD Yanelis Garcia Attending Provider MD Daniel Hylton Attending Provider Patel, Tara Unavailable Roni Dahl MD Primary Care Provider MD Roni Dahl Primary Care Provider MD Yanelis Garcia Attending Provider DILIP Vasquez Jesus Emergency Provider MD Mukul Wilson Attending Provider Mukul Wilson Unavailable LANIE PRINCE Referring Unavailable XU MARTINEZ Attending Unavailable XU MARTINEZ Attending Unavailable Roni Dahl MD Primary Care Provider MARY SUE Attending Unavail able RONI DAHL Primary Care Unavailable [facility] Admitting Unavail able PASTORA ROWE Referring Unavailable RONI DAHL Primary Care Unavailable [facility] Attending Unavail able MD Roni Dahl Primary Care Provider DILIP Vasquez Jesus Emergency Provider MD Mukul Wilson Attending Provider MD Yanelis Garcia Attending Provider MD Obie Hylton Attending Provider MD Roni Dahl Primary Care Provider DENISHA Sanchez Attending Provider MD Roni Dahl Primary Care Provider MD Obie Hylton Attending Provider SnehaGurpreet wheatRicardojethro Zarate Referring Unavaila ble Davion Olivares Attending Unavaila ble Davion Olivares Admitting Unavaila ble Marshall, Davion Zarate Attending Unavaila Roni Whitaker MD Primary Care Provider Obie Hylton MD Attending Provider [phone] Roni Dahl MD Primary Care Provider VIGPABLO, REAGAN S Referring Unavailable VERHOFF, RONI L Primary Care Unavailable VERHOFF, RONI L Primary Care Unavailable JOHN PAUL MAYFIELD Referring Unavailable VERHOFF, RONI L Primary Care Unavailable YANELIS GUZMAN Attending Unavailable YANELIS GUZMAN Referring Unavailable VIGESAA, REAGAN S Referring Unavailable VIGESAA, [...] Primary Care Unavailable GLORY PEÑA Referring Unavailable Roni Dahl MD Primary Care Provider [phone] Obie Hylton MD Attending Provider Laura ROQUECNuvia Attending Provider LEXY CANALES Attending UnavailLEXY Daniels Attending UnavailLEXY Daniels Attending UnavailJOHN PAUL Daniels Referring Unavailable RONI DAHL Primary Care Unavailable Roni Dahl MD Primary Care Provider RONI DAHL Primary Care Unavailable CINTHYA BARGER Attending Unavailable CHRISTIAN LUCIO Attending Unavailable RONI DAHL Primary Care Unavailable RONI DAHL Primary Care Unavailable CINTHYA BARGER Referring Unavailable CINTHYA BARGER Admitting Unavailable Roni Dahl MD Primary Care Provider Obie Hylton MD Attending Provider Obie Hylton Admitting Unavailable Obie Hylton Attending Unavailable Roni Dahl [facility]available [facility] Unavailable Obermeyer Nuvia L Admitting Unavailable Obermdorene Nuvia L Attending Unavailable Roni Dahl [facility] Unavailable Obie Hylton Admitting Unavailable Obie Hylton Attending Unavailable Kimberly STEINER, Andpriscilla Ko Attending Unavailable Nakia TSEINER, [facility] Unavailab Jan STEINER, Andrius Ko Attending Unavailable Nakia STEINER, [facility] Unavailab Jan STEINER, Andrius Maikel Attending Unavailable Nakia STEINER, [facility] Unavailab dixon Dahl MD, [facility] Unavailab Jan STEINER, Andrius Maikel Attending Unavailable Nakia STEINER, [facility] Unavailab dixon Harris MD, Andrius Maikel Attending Unavailable Nakia STEINER, [facility] Unavailab Jan STEINER, Andrius Maikel Attending Unavailable Nakia STEINER, [facility] Unavailab Jan STEINER, Andrius Maikel Attending Unavailable Nakia STEINER, [facility] Unavailab Jan STEINER, Andrius Ko Attending Unavailable Allergies Allergy ClassificationReported Allergen(s)Allergy TypeDate of OnsetReaction(s) FacilityhydroCHLOROthiazide (6 sources)hydroCHLOROthiazideDrug Loqrqba13-93-2705AjxdHehyi HealthLatex (6 sources)LatexSubstance Ninoudy72-78-5152AtoodxsEsvie HealthNSAIDs (6 sources)IbuprofenDrug Fdhxynu45-61-2494CihwEtaqn HealthOpioid Agonists (6 sources)MorphineDrug Zvmauwp01-18-4762Wfjhf (See Comments)[facility] [employer] Serotonin Reuptake Inhibitors (SSRIs) (6 sources)EscitalopramDrug Azuzupr59-62-3915Wtzyxjq, RashMercy Health Sulfonamides (antibiotic) (12 sources)Sulfonamides (Antibiotic)Drug Yzyescw03-25-1617Aueew (See Comments), ItchingMercy HealthSulfur (6 sources)SulfurDrug Kgctkqp43-61-8893AeyljfoWbruv HealthTriamterene (6 sources)TriamtereneDrug Qyjbxwp16-29-1042QbwiAmmgm HealthWHEAT DEXTRIN (6 sources)WHEAT DEXTRINDrug Odqvrad20-11-3451Ahulq Health (1 source)escitalopram; Translations: [ESCITALOPRAM OXALATE]Drug Allergy 66-70-4564WZFCmxjoyjeqBluffton Hospital Repository (20 sources)morphine; Translations: [MORPHINE]Drug Ahdcukt10-60-2809Oqguz (See Comments), Vomiting (disorder), GI Intolerance, OtherBluffton Hospital Repository (8 sources)Sulfonamides (Antibiotic); Translations: [SULFA (SULFONAMIDE ANTIBIOTICS)]Propensity to adverse reactions to drug (disorder)04-19-7315Cfdxe [facility]ository (1 source)GLUTEN FLOUR; Translations: [GLUTEN FLOUR]Propensity to adverse reactions to food (disorder)05-96-7071WUVMrqidmcgnRegional Medical Center Repository (20 sources)Escitalopram; Translations: [ESCITALOPRAM]Drug Nycdlun86-15-7718 Itching, RashMercy Health- [place], [place] (20 sources)Ibuprofen; Translations: [ibuprofen]Drug Xwbvcix83-44-4634Nmvh, GI intoleranceSelect [facility]ty [facility] [place], [place] (20 sources)Latex; Translations: [LATEX]Propensity to adverse reactions to drug 14-80-1268Ybijdyz, Eruption of skin (disorder), Rash, Other (See Comments)[facility] [employer] [place], [place] (20 sources)Sulfonamides (Antibiotic)Propensity to adverse reactions to drug 73-41-7498Pdntv (See Comments)WOMNy Health- [place], [place] (20 sources)Triamterene; Translations: [triamterene]Drug Hoqbbfv51-81-2533Ckvw, Eruption of skin (disorder)[place]:dyazide or ibuprofen caused the rash-taken off both because not sure which one caused the problem (20 sources)WHEAT DEXTRIN; Translations: [Wheat]Drug Fpxjgbh14-52-9199Xvcerft [facility] [place] [place] (20 sources)hydroCHLOROthiazide; Translations: [HYDROCHLOROTHIAZIDE]Drug Allergy 51-65-6734KnoaKfjrcBarnum, KYComment on above:dyazide or ibuprofen caused the rash-taken off both because not sure which one caused the problem (20 sources)SulfacetamideDrug Wukorgo63-30-6319JjldoleXrxao Health- [place], [place] (20 sources)Sulfur; Translations: [SULFUR]Drug Ojskxkj95-48-1483YmeaowfWqjdq Health- [place], [place] (20 sources)FoodPropensity to adverse reactions to vpgm72-35-6589Hvzwc Health (10 sources)Gluten; Translations: [Glutens]Food allergyUpset stomach (finding) [facility] [employer] [place] [facility] (9 sources)Sulfamethoxazole; Translations: [sulfamethoxazole]Drug Allergy Eruption of skin (disorder)[facility] (17 sources)Sulfamethoxazole / Trimethoprim; Translations: [sulfamethoxazole-trimethoprim]Drug Cxvodou06-63-3220Lvvk, Other (See Comments) [facility] Digestive [facility] (16 sources)Sulfacetamide / SulfurDrug AllergyUnkDemoHire Other (20 sources)Sulfonamides (Antibiotic)Propensity to adverse reactions to drug 20-95-7889Uamlg (See Comments), Itching, Hives, RashB[facility] (7 sources)Naproxen; Translations: [naproxen]Drug AllergyUnknoOhio State Health System (19 sources)Wheat gluten extractDrug Siplgwu93-89-6221Vtrdko And VomitingB[facility] (2 sources)MorphineDrug AllergyUnkDemoHire Other (2 sources)Sulfamethoxazole / Trimethoprim; Translations: [SULFAMETHOXAZOLE-TRIMETHOPRIM]Drug Ofditdg98-34-9718TynyswrvqbSelect Medical [facility] (1 source)Wheat bran; Translations: [WHEAT BRAN]Propensity to adverse reactions to drug (disorder)11-25-8168UzsiedkgaaSelect Medical [facility] Rep[facility] (1 source)GLUTEN PROTEIN; Translations: [GLUTEN PROTEIN]Propensity to adverse reactions to drug (disorder)48-21-5874LmhvoscjahSelect Medical [facility] Repository (6 sources)GlutenAllergy to -30-3699VZ intolerance, ItchingNOMS Healthcare (6 sources)hydroCHLOROthiazideDrug Pscifyf90-45-9177ZovlTKOG Healthcare (6 sources)LatexPropensity to adverse ooilqyzcp32-73-9248Cjmgsoz, RashNOMS Peoples Hospital (6 sources)TriamtereneDrug Cfyplll58-82-8482JffjMGOU Healthcare (2 sources)Wheat preparationDrug Ryjjray12-01-7932NtkudyiTvtxQsualh (1 source)EscitalopramDrug Gjxwdrv67-38-4786UslsgvmjiVeterans Health Administration Repository (1 source)hydroCHLOROthiazideDrug Lbmgpkm56-01-1429HfrmlligyVeterans Health Administration Repository (1 source)IbuprofenDrug Yhoqfog86-99-5471KalrboozdVeterans Health Administration Repository (1 source)LatexDrug allergy (disorder)89-41-0112FgmiyhvufVeterans Health Administration Repository (1 source)SulfacetamideDrug Oyczdky88-32-6089MznzlxoyeVeterans Health Administration Repository (1 source)SulfurDrug Ehrwqrx35-83-1905AjwckokesVeterans Health Administration Repository (1 source)TriamtereneDrug Wjpdcip78-41-5847VqvjwkcbtVeterans Health Administration Repository (1 source)Sulfonamides (Antibiotic); Translations: [sulfa drugs]Propensity to adverse reactions to drug (disorder)[facility] Repository Medications Current Medications MedicationDrug Class(es)DatesSig (Normalized)Sig (Original)acetaminophen 300 mg / codeine phosphate 30 mg oral tablet (2 sources)Opioid AgonistStart: 36-53-2612qade 1 tablet by mouth every twelve hoursAcetaminophen-Codeine 300-30 MG 1 tablet as needed Orally BID for 30 days 14 Mar, 2023 ActiveAcetaminophen / HYDROcodone (1 source)Opioid AgonistStart: 93-65-2474smjieyjzspf-acetaminophen (NORCO) tablet 5-325 mg (STARTER PACK)acetaminophen 325 mg / oxyCODONE hydrochloride 5 mg oral tablet (14 sources)Opioid AgonistStart: 99-15-3309fdxc 1 tablet by mouth twice daily oxyCODONE-acetaminophen (PERCOCET) 5-325 MG per tablet take 1 tablet by mouth UP TO twice a day if needed for 7 days 0 02/15/2023 ActiveStart: 05-58-3477Iadmxpyx 325 mg-5 mg Tab See Instructions, as needed for pain, 40 tab(s), Refill(s) 0, 1- 2 orally every 4-6hrs as needed for pain Dx: M75.101 Duration: 7 days, [facility]acy [id number], 162, cm, 07/17/21 12:14:00 EST, Height/Length Dosing, 105.2, kg, 07/17/21 12:14:00 EST, [place]... Start Date: 07/28/21 Status: OrderedStart: 52-76-4302Cbkrnrft 325 mg-5 mg Tab See Instructions, as needed for pain, 40 tab(s), Refill(s) 0, 1-2 orally every 4-6hrs as needed for pain Dx: M75.101 Duration: 7 days, [facility]/pharmacy #[id number], 162, cm, 07/17/21 12:14:00 EST, Height/Length Dosing, 105.2, kg, 07/17/21 12:14:00 EST, Weig... Start Date: 07/28/21 Status: Orderedamoxicillin 875 mg / clavulanate 125 mg oral tablet (20 sources)Penicillin-class AntibacterialStart: 75-12-6685ctbf 1 tablet by mouth twice dailyamoxicillin-clavulanate (AUGMENTIN) 875-125 mg per tablet Take 1 (one) tablet by mouth 2 (two) times a day . 20 tablet 01/15/2025 ActiveStart: 00-90-4110ixqmishgwdy-clavulanate (Augmentin) 875-125 MG tablet 01/30/2023 ActiveStart: 84-97-0097nera 1 tablet by mouth every twelve hoursAmoxicillin-Pot Clavulanate 875-125 MG 1 tablet Orally every 12 hrs for 10 day(s) Jan, Not-TakingStart: 11-25-2022 End: 72-74-6566tprp 1 tablet by mouth twice dailyamoxicillin-clavulanate (AUGMENTIN) 875-125 MG per tablet Take 1 tablet by mouth 2 times daily for 10 days 20 tablet 0 11/25/2022 11/25/2022 Discontinued (DUPLICATE)Start: 09-07-2021 End: 09-41-1627cqnr 1 tablet by mouth twice dailyamoxicillin-clavulanate (AUGMENTIN) 875-125 MG per tablet Indications: Sinusitis, bacterial Take 1 t ablet by mouth 2 times daily for 10 days 20 tablet 0 09/07/2021 09/17/2021 ActiveStart: 06-12-2021 End: 51-05-1100skhx 1 tablet by mouth twice dailyamoxicillin-clavulanate (AUGMENTIN) 875-125 MG per tablet Indications: Acute non-recurrent pansinusitis Take 1 tablet by mouth 2 times daily for 10 days 20 tablet 0 06/12/2021 06/22/2021 ActiveStart: 01-03-2021 End: 06-14-6995xocu 1 tablet by mouth twice dailyamoxicillin-clavulanate (AUGMENTIN) 875-125 MG per tablet Indications: Acute pansinusitis, recurrence not specified Take 1 tablet by mouth 2 times daily for 7 days 14 tablet 0 01/03/2021 01/10/2021 ActiveStart: 05-30-2019 End: 34-61-4947sjrs 1 tablet by mouth twice dailyamoxicillin-clavulanate (AUGMENTIN) 875-125 MG per tablet Take 1 tablet by mouth 2 times daily for 10 days 20 tablet 0 05/30/2019 06/09/2019 Activeapixaban 5 mg oral tablet (13 sources)Factor Xa InhibitorStart: 36-20-5348dygd 1 tablet by mouth twice dailyapixaban 5 mg Tab Take 1 (one) tablet (5 mg total) by mouth 2 (two) times a day . 02/03/2024 ActiveStart: 53-66-1422rrvy 1 tablet by mouth twice daily apixaban (ELIQUIS) 5 MG TABS tablet Take 1 tablet by mouth 2 times daily 60 tablet 1 10/23/2023 Activeascorbic acid 60 mg / beta carotene 5000 unt / copper sulfate 40 mg / dl-alpha tocopheryl acetate 30 unt / sodium selenite 0.04 mg / zinc oxide 40 mg oral tablet (6 sources)Vitamin Ctake 1 tablet by mouth once dailyMultiple Vitamins-Minerals (THERAPEUTIC MULTIVITAMIN-MINERALS) tablet Take 1 tablet by mouth daily 0 Active Ascorbic Acid / POLYETHYLENE GLYCOL 3350 / Potassium Chloride / Sodium Ascorbate / Sodium Chloride / sodium sulfate (20 sources)Osmotic Laxative, Vitamin CStart: 59-08-7743IHAISP 140 g SOLR Aspir-81 (16 sources)Aspir-81 Activeaspirin 81 mg delayed release oral tablet (20 sources)Platelet Aggregation Inhibitor, Nonsteroidal Anti-inflammatory Drug Start: 44-67-8221virf 1 tablet by mouth once dailyStart: 12-31-8627tugv 81 mg by mouth once dailyaspirin 81 mg, Oral, Daily, Refills(s) 0, Prophylaxis Start Date: 03/16/14 Status: Orderedatropine sulfate 0.025 mg / diphenoxylate hydrochloride 2.5 mg oral tablet (1 source)Anticholinergic, Cholinergic Muscarinic Antagonist, Antidiarrheal Start: 11-18-2020 End: 09-62-2139whag 1 tablet by mouth four times daily as needed for diarrhea diphenoxylate-atropine (LOMOTIL) 2.5-0.025 MG per tablet Indications: Nausea vomiting and diarrhea Take 1 tablet by mouth 4 times daily as needed for Diarrhea for up to 3 days. 10 tablet 0 / Activeazelastine hydrochloride 0.137 mg/actuat metered dose nasal spray (2 sources)Histamine-1 Receptor AntagonistStart: 44-48-5767kkmj 1 spray(s) nasal route twice dailyazelastine (ASTELIN) 0.1 % nasal spray 1 spray by Nasal route 2 times daily Use in each nostril as directed 1 Bottle 3 06/18/2017 Active azelastine hydrochloride 0.137 mg/actuat / fluticasone propionate 0.05 mg/actuat metered dose nasalspray (16 sources)Corticosteroid, Histamine-1 Receptor AntagonistStart: 01-10-2018 Start: 94-65-4279Kadneauszs-Fluticasone Active 1 SPRAY INTRANASAL Twice daily January 10, 2018 12:00amStart: 78-89-5785Zewtipbwlh-Fluticasone Active 1 SPRAY INTRANASAL Twice daily January 09, 2018 11:00pmAzelastine-Fluticasone 137-50 mcg/spray [place],Non-Aerosol (2 sources)Start: 35-37-5682Tjciolhtgp-Fluticasone 137-50 mcg/spray [place],Non- Aerosol Active 1 SPRAY INTRANASAL Twice daily as needed for Nasal Congestion January 10, 2018 12:00amStart: 96-64-5619Zbbggrlljj-Fluticasone 137-50 mcg/spray [place],Non-Aerosol Active 1 SPRAY INTRANASAL Twice daily as needed for Nasal Congestion January 09, 2018 11:78ghUjppjmgzpj-Etfqzkzzckb-HvSd (16 sources)Iqywmpzxda-Ysnhfnmpshu-WxOi Activeazithromycin 250 mg oral tablet (7 sources)Macrolide AntimicrobialStart: 10-11-3745gihhkdolavea (ZITHROMAX) 250 MG tablet Take 2 tabs (500 mg) on Day 1, and take 1 tab (250 mg) on days 2 through 5. 1 packet 08/21/2024 ActiveStart: 07-01-2023 End: 42-57-0284aaavoxtvtkha (ZITHROMAX Z-FABI) 250 MG tablet Take 2 tablets (500 mg) on Day 1, and then take 1 tablet (250 mg) on days 2 through 5. 1 packet 0 07/01/2023 07/05/2023 ActiveStart: 03-24-2020 End: 55-28-3914bqxnzkawujbn (ZITHROMAX) 250 MG tablet Indications: Acute recurrent frontal sinusitis , Vertigo Take 2 tabs (500 mg) on Day 1, and take 1 tab (250 mg) on days 2 through 5. 1 packet 0 03/24/2020 03/31/2020 Discontinued (Therapy completed)betamethasone 1 mg/ml topical cream (2 sources)CorticosteroidStart: 01-15-2025 End: 29-28-7876ziibughoxwtvm valerate (VALISONE) 0.1 % cream Apply topically daily . 30 g 01/15/2025 01/15/2026 ActiveCa Carb-Ca Gluc-Mg Ox-Mg Gluco (Calcium Magnesium) 500 mg calcium -250 mg Tablet (13 sources)Start: 91-99-7874vqnv 1 tablet by mouth twice dailyCa Carb-Ca Gluc- Mg Ox-Mg Gluco (Calcium Magnesium) 500 mg calcium -250 mg Tablet Active 1 TAB PO Twice daily May 20, 2019 12:00amStart: 12-13-9831odhb 1 tablet by mouth twice dailyCa Carb-Ca Gluc-Mg Ox-Mg Gluco (Calcium Magnesium) 500 mg calcium - 250 mg Tablet Active 1 TAB PO Twice daily May 20, 2019 1:00amCalcium & Magnesium Carbonates (16 sources)Calcium & Magnesium Carbonates ActiveCALCIUM & MAGNESIUM CARBONATES PO (20 sources)CALCIUM & MAGNESIUM CARBONATES PO Calcium & Magnesium Carbonates Active ActiveCALCIUM & MAGNESIUM CARBONATES PO Calcium & Magnesium Carbonates Active 0 Activetake 1 tablet by mouth twice dailyCALCIUM & MAGNESIUM CARBONATES PO Take 1 tablet by mouth 2 times daily 0 ActiveCalcium Carb,Gluc-Mag Gluc,Ox (Calcium Magnesium) 500 mg calcium -250 mg Tablet (5 sources)Start: 48-19-5629wyhc 1 tablet by mouth twice dailyStart: 05-20-2019 take 1 tablet by mouth twice dailyCalcium Carb,Gluc-Mag Gluc,Ox (Calcium Magnesium) 500 mg calcium -250 mg Tablet Active 1 TAB PO Twice daily May 20, 2019 12:00amStart: 82-36-7377ddsd 1 tablet by mouth twice dailyCalcium Carb,Gluc-Mag Gluc,Ox (Calcium Magnesium) 500 mg calcium -250 mg Tablet Active 1 TAB PO Twice daily May 20, 2019 1:00amcalcium carbonate 1500 mg oral tablet (11 sources)take 1 tablet by mouth twice daily at mealtimecalcium carbonate (OS- ASHLY) 600 mg calcium (1,500 mg) tablet Take 1 (one) tablet (600 mg total) by mo [facility] 2 (two) times a day with meals . Activecalcium carbonate 1250 mg / cholecalciferol 200 unt oral tablet (3 sources)Vitamin DStart: 76-55-7438Puqbuhd Carbonate / magnesium carbonate (8 sources)Start: 56-77-7243fdii 1 tablet by mouth twice dailycalcium carbonate- magnesium carbonate tab(s), Oral, BID, Refill(s) 0, Prophylaxis Start Date: 03/24/19 Status: OrderedCalcium Carbonate-Vitamin D3 (Calcium 500 + D) 500 mg(1,250mg) -200 unit Tablet (15 sources)Start: 63-16-3218Dmscplr Carbonate-Vitamin D3 (Calcium 500 + D) 500 mg(1,250mg) -200 unit Tablet Active 1 TAB PO Twice daily December 29, 2017 12:00am Start: 86-30-4017Tjwndjc Carbonate-Vitamin D3 (Calcium 500 + D) 500 mg(1,250mg) -200 unit Tablet Active 1 TAB PO Twice daily December 28, 2017 11:00pm cholecalciferol 0.05 mg oral capsule (20 sources)Vitamin DStart: 87-57-4853ugoo 1 capsule by mouth once dailytake 1 capsule by mouth once dailycholecalciferol, vitamin D3, 25 mcg (1,000 unit) capsule Take 1 (one) capsule (1,000 Units total) by mouth daily . Activetake 1 capsule by mouth twice dailyCholecalciferol (VITAMIN D) 2000 units CAPS capsule Take 1 capsule by mouth 2 times daily Activecholecalciferol (Vitamin D-3) 50 MCG (2000 UT) capsule Take 2,000 Units by mouth ActiveCholecalciferol 2000 UNIT (16 sources)Cholecalciferol 2000 UNIT Orally Activecitalopram 20 mg oral tablet (20 sources)Serotonin Reuptake InhibitorStart: 68-42-7296hzln 1 tablet by mouth at bedtimeclotrimazole 10 mg oral lozenge (18 sources)Azole AntifungalStart: 02-05-2025 End: 87-12-1711dnnu 1 tablet by mouth five times dailyclotrimazole (MYCELEX) 10 mg anastasia Indications: Sore throat Take1 (one) tablet (10 mg total)by mouth 5 (five) times a day for 10 days.Allow anastasia to dissolve slowly in the mouth. 50 tablet 02/05/2025 02/15/2025 ActiveStart: 01-15-2025 End: 49-46-0344kgxe 1 tablet by mouth three times dailyclotrimazole (MYCELEX) 10 mg anastasia Take1 (one) tablet (10 mg total)by mouth 3 (three) times a day for 30 doses.Allow anastasia to dissolve slowly in the mouth. 30 Anastasia 01/15/2025 01/25/2025 ActiveStart: 10-23-2023 End: 92-53-5686ocjv 1 tablet by mouth four times daily as neededclotrimazole (MYCELEX) 10 MG anastasia Take 1 tablet by mouth 4 times daily as needed (thrush) 40 tablet 0 10/23/2023 11/02/2023 ActiveStart: 79-12-2271cuiiiwgilhem (LOTRIMIN) 1 % cream Indications: Candidal intertrigo Apply topically 2 times daily to affected areas for 14 to 21 days, no longer than 4 weeks. 60 g 0 02/09/2022 ActiveStart: 53-27-1912rzurnmaqlcug (LOTRIMIN) 2 % CREA vaginal cream 1 applicator per vaginal at bedtime x 5 days 5 each 0 10/14/2021 Activediclofenac sodium 50 mg delayed release oral tablet (3 sources)Nonsteroidal Anti-inflammatory DrugStart: 87-93-6317ktzv 1 tablet by mouth once dailydiclofenac (VOLTAREN) 50 MG EC tablet Take 1 tablet by mouth daily 90 tablet 1 08/06/2023 ActiveStart: 29-96-2728lepf 1 tablet by mouth twice dailydiclofenac (VOLTAREN) 50 MG EC tablet Take 1 tablet by mouth 2 times daily 60 tablet 5 05/07/2023 Hzzmnk22 hr dilTIAZem hydrochloride 120 mg extended release oral capsule (20 sources)Calcium Channel BlockerStart: 17-69-0809bqbs 1 capsule by mouth once dailydilTIAZem (CARDIZEM CD) 120 MG extended release capsule Indications: Atrial fibrillation, unspecified type (HCC) TAKE 1 CAPSULE BY MOUTH DAILY 90 capsule 3 12/03/2024 ActiveStart: 19-41-1566vfay 1 capsule by mouth once dailydilTIAZem (CARDIZEM CD) 120 MG extended release capsule Indications: Atrial fibrillation, unspecified type (HCC) Take 1 capsule by mouth daily 90 capsule 1 08/05/2024 ActiveStart: 02-67-7563zthh 1 capsule by mouth once dailydilTIAZem (CARDIZEM CD) 120 MG extended release capsule Indications: Atrial fibrillation, unspecified type (HCC) Take 1 capsule by mouth daily 90 capsule 1 02/11/2024 ActiveStart: 62-17-6156kymy 1 tablet by mouth once dailyStart: 07-29-2017 End: 24-89-0176Zuaxjxpbt Hcl 30 mg Tablet Discontinued 30 MG PO As Directed as needed for Increased Heart Rate January 10, 2018 12:00am May 29, 2022 9:36amdocusate sodium 100 mg oral tablet (20 sources)Start: 21-26-3303ssli 100 mg by mouth once dailyColace 100 mg, Oral, Daily, Refills(s) 0, Constipation Start Date: 03/01/21 Status: OrderedStart: 95-54-6306rauj 1 capsule by mouth once dailyDocusate Sodium Activedoxycycline hyclate 100 mg oral capsule (3 sources)Tetracycline-class DrugStart: 02-05-2025 End: 20-56-6300aaku 1 capsule by mouth twice dailydoxycycline hyclate (VIBRAMYCIN) 100 MG capsule Indications: Cough, unspecified type , Nasal congest ion Take 1 (one) capsule (100 mg total) by mouth 2 (two) times a day for 10 days . 20 capsule 02/05/2025 02/15/2025 ActiveStart: 11-17-2022 End: 94-86-5707xjdr 1 tablet by mouth twice dailydoxycycline hyclate (VIBRA- TABS) 100 MG tablet Take 1 tablet by mouth 2 times daily for 10 days 20 tablet 0 11/17/2022 11/25/2022 Discontinued (Alternate therapy)Start: 06-29-2020 End: 12-02-1039jtmv 1 tablet by mouth twice dailydoxycycline hyclate (VIBRA- TABS) 100 MG tablet Indications: Acute pansinusitis, recurrence not specified Take 1 tablet by mouth 2 times daily for 7 days 14 tablet 0 06/29/2020 07/06/2020 Activeesomeprazole 40 mg delayed release oral capsule (20 sources)Proton Pump InhibitorStart: 05-46-3885ufgi 1 capsule by mouth once dailyStart: 12-29-2017 End: 07-01-6683bihb 1 capsule by mouth once daily in the morningEsomeprazole Magnesium 40 mg capsule,delayed release(DR/EC) Discontinued 40 MG PO Every morning December 29, 2017 12:00am May 29, 2022 9:36amestradiol 0.1 mg/ml vaginal cream (20 sources)EstrogenStart: 83-62-4736xagvfotbq (ESTRACE VAGINAL) 0.1 MG/GM vaginal cream Indications: Frequent UTI , Vaginal atrophy , Mixed incontinence urge and stress Insert one inch of cream inside the vagina and placed an additional pea sized amount to the urethra and inner labia three nights per week. Do NOT use plastic applicator. 1 each 3 12/22/2024 ActiveStart: 04-20-2024 estradiol (ESTRACE VAGINAL) 0.1 MG/GM vaginal cream Indications: Frequent UTI , Vaginal atrophy , Mixed incontinence urge and stress Place a pea-sized amount vaginally 3 times per week 1 each 3 04/20/2024 ActiveStart: 30-49-0716vuvrlmxkX (ESTRACE) 0.01 % (0.1 mg/gram) vaginal cream Insert 1 (one) g into the vagina daily . 12/11/2022 ActiveStart: 23-79-4697tnkydlimj (Estrace) 0.1 MG/GM vaginal cream Insert 1 g into the vagina 12/11/2022 ActiveStart: 39-90-0226oanfnfvrh (ESTRACE VAGINAL) 0.1 MG/GM vaginal cream Indications: Frequent UTI , Vaginal atrophy , Mixed incontinence urge and stress Place [address] a pea-sized amount vaginally dailyx 2 wks, then use 3 times per wk thereafter 1 each 3 12/11/[address] vaginally 0 Activefamotidine 40 mg oral tablet (20 sources)Histamine-2 Receptor AntagonistStart: 31-02-8325uqum 1 tablet by mouth once daily at bedtimefamotidine 40 mg Tab 40 mg = 1 tab(s), Oral, Once a day (at bedtime), # 90 tab(s), Refills(s) 6, Pharmacy: [facility] #[id number], 162, cm, 09/16/23 10:47:00 EDT, Height/Length Dosing, 97.8, kg, 09/16/23 10:47:00 EDT, Weight Dosing Start Date: 09/16/23 Status: OrderedStart: 04-03-2021 End: 61-89-8226znvq 1 tablet by mouth once dailyfexofenadine hydrochloride 180 mg oral tablet (20 sources)Histamine-1 Receptor AntagonistStart: 92-56-7440anev 1 tablet by mouth once daily as needed for tpabrwzlmq16 hr fexofenadine hydrochloride 60 mg / pseudoephedrine hydrochloride 120 mg extended release oraltablet (3 sources)alpha-Adrenergic Agonist, Histamine-1 Receptor Antagonisttake 1 tablet by mouth once in the morning, then take 1 tablet by mouth every twelve hours in the eveningfexofenadine-pseudoephedrine ER (Melania-D) 60-120 MG 12 hr tablet Take 1 tablet by mouth in the morning and 1 tablet in the evening. Active fluconazole 150 mg oral tablet (17 sources)Azole AntifungalStart: 84-87-3587qvuibrxssbl (DIFLUCAN) 150 MG tablet TAKE ONE TABLET BY MOUTH IN A SINGLE DOSE 1 tablet 1 06/18/2022 Active Start: 99-51-1444sdpdkrxkzzd (DIFLUCAN) 100 MG tablet 1 tab PO x1 now, and 1 tab PO when antibiotics completed 2 tablet 0 10/14/2021 ActiveStart: 06-28-2021 fluconazole (DIFLUCAN) 150 MG tablet Indications: Antibiotic-induced yeast infection Take one by mouth today and one after completion of cephalexin. 2 tablet 0 06/28/2021 ActiveStart: 07-28-2020 End: 30-81-1122ddmfatqkvya (DIFLUCAN) 150 MG tablet Take 1 dose po and repeat dose in 3-4d 2 tablet 0 07/28/2020 11/18/2020 Discontinued (LIST CLEANUP) fluticasone propionate 0.05 mg/actuat metered dose nasal spray (20 sources)CorticosteroidStart: 55-65-8601cqvgagrilzy (FLONASE) 50 MCG/ACT nasal spray Indications: Acute pansinusitis, recurrence not specified 1 spray by Nasal route daily 3 each 1 02/11/2024 ActiveStart: 03-29-2022 End: 72-15-1335yyazdlkucbi (FLONASE) 50 MCG/ACT nasal spray Indications: Acute pansinusitis, recurrence not specified 1 spray by Nasal route daily 3 each 1 02/11/2024 ActiveStart: 83-53-6703womf 1 spray(s) nasal route in the morning fluticasone (Flonase) 50 MCG/ACT nasal spray Administer 1 spray into affected nostril(s) in the morning. 03/29/2022 ActiveStart: 34-56-6936gyex 1 spray(s) nasal route once dailyfluticasone propionate (FLONASE) 50 mcg/actuation nasal spray Instill 1 (one) spray into each nostril daily . 03/01/2021 ActiveStart: 04-27-0949itzzpiggxpb (FLONASE) 50 MCG/ACT nasal spray Indications: Acute pansinusitis, recurrence not specified 1 spray by Nasal route daily 1 Bottle 0 01/03/2021 ActiveStart: 22-22-3581chal 1 spray(s) nasal route once daily fluticasone (FLONASE) 50 MCG/ACT nasal spray 1 spray by Each Nostril route daily 1 Bottle 0 07/27/2019 ActiveStart: 18-79-5430ecgr 1 spray(s) nasal route once dailyfluticasone (FLONASE) 50 MCG/ACT nasal spray 1 spray by Each Nostril route daily 1 Bottle 0 05/30/2019 Activefluticasone 0.05 mg/inh Nasal [place] (8 sources)Start: 00-55-4359iupyqfwqtti 0.05 mg/inh Nasal [place] 50 mcg, Nasal, Daily, Refill(s) 0, Allergy symptoms Start Date:03/01/21 Status: Orderedgabapentin 300 mg oral capsule (1 source)Anti-epileptic AgentStart: 75-48-0879phlfudqwpe (NEURONTIN) 300 MG capsulehydroCHLOROthiazide 25 mg / triamterene 37.5 mg oral capsule (20 sources)Potassium-sparing Diuretic, Thiazide DiureticStart: 63-62-5088lqzk 1 capsule by mouth once dailyStart: 12-29-2017 End: 09-90-9828afxv 1 tablet by mouth once dailyTriamterene-Hydrochlorothiazid 37.5-25 mg tablet Discontinued 1 TAB PO Daily December 29, 2017 12:00amNove2018 1:52pmhydrocortisone 25 mg/ml topical cream (7 sources)CorticosteroidStart: 47-16-3456fpaostugqjjvzo 2.5 % creamStart: 90-43-9103wmwztydgiliqvh 2.5 % creamketoconazole 20 mg/ml topical cream (2 sources)Azole AntifungalStart: 35-88-0522ppwutbfnqvas (NIZORAL) 2 % cream levothyroxine sodium 0.05 mg oral tablet (20 sources)l-ThyroxineStart: 30-47-8069ycve 1 tablet by mouth once dailyStart: 49-71-9190shbb 1 tablet by mouth once dailylevothyroxine 50 mcg (0.05 mg) Tab 50 microgram = 1 tab(s), Oral, Daily, Refills(s) 0, Thyroid Start Date: 11/02/14 Status: Orderedloperamide hydrochloride 2 mg oral capsule (1 source)Opioid AgonistStart: 11-27-2020 End: 94-96-7991sptl 1 capsule by mouth four times daily as needed for diarrhea loperamide (RA ANTI-DIARRHEAL) 2 MG capsule Take 1 capsule by mouth 4 times daily as needed for Diarrhea 30 capsule 0 11/27/2020 12/07/2020 Activeloratadine 10 mg oral capsule (20 sources)Start: 49-07-7814lkamsqdizv 10 mg cap Take by mouth . 07/17/2021 ActiveStart: 05-20-2019 End: 30-86-3183rxfg 1 tablet by mouth once dailyLoratadine 10 mg Tablet Discontinued 10 MG PO Daily May 20, 2019 1:00am May 29, 2022 9 :36ammeclizine hydrochloride 25 mg oral tablet (1 source)AntiemeticStart: 03-24-2020 End: 69-67-0603foim 1 tablet by mouth three times daily as needed for nausea meclizine (ANTIVERT) 25 MG tablet Take 1 tablet by mouth 3 times daily as needed for Dizziness or Nausea 30 tablet 0 03/24/2020 03/31/2020 Activemeloxicam 7.5 mg oral tablet (4 sources)Nonsteroidal Anti-inflammatory DrugStart: 31-27-5197pqgm 1 tablet by mouth once dailymeloxicam 7.5 mg oral tablet 7.5 mg = 1 tab(s), Oral, Daily, Refills(s) 0, Inflammation Start Date:07/17/21 Status: OrderedMetamucil Fibre Therapy (8 sources)Start: 82-85-5750wumn 1 capsule by mouth once dailyMetamucil Fibre Therapy 1 cap, Oral, Daily, Constipation Start Date: 07/17/21 Status: Ordered Start: 80-92-9255wlpk 1 capsule by mouth once dailyMetamucil Fibre Therapy capsule, Oral, Daily, Constipation Start Date: 07/17/21 Status: Orderedmetoprolol tartrate 50 mg oral tablet (5 sources)beta-Adrenergic BlockerStart: 87-20-7778pntvafnvld tartrate (LOPRESSOR) tablet 50 mgStart: 64-81-3002hshbmdiscj (LOPRESSOR) injection 5 mg Start: 53-51-2541hncc 0.5 tablet by mouth twice dailymetoprolol tartrate (LOPRESSOR) 25 MG tablet Take 0.5 tablets by mouth 2 times daily 15 tablet 1 ActiveMultiple Vitamins Tab (8 sources)Start: 00-63-2236jjzy 1 tablet by mouth once dailyMultiple Vitamins Tab 1 tab(s), Oral, Daily, Refill(s) 0, Prophylaxis Start Date: 01/16/16 Status: OrderedMultiple Vitamins-Minerals (THERAPEUTIC MULTIVITAMIN-MINERALS) tablet (20 sources)take 1 tablet by mouth once dailyMultiple Vitamins-Minerals (THERAPEUTIC MULTIVITAMIN-MINERALS) tablet Take 1 tablet by mouth daily 0 Active Multivitamin preparation (20 sources)Start: 57-55-5553hojk 1 tablet by mouth once dailyMultivitamin Active 1 TAB PO Daily May 20, 2019 12:00amStart: 51-69-4023uvcz 1 tablet by mouth once dailyMultivitamin Active 1 TAB PO Daily May 20, 2019 1:00am Multivitamin ActiveMultivitamin Tablet (3 sources)Start: 29-98-3357hwda 1 tablet by mouth once dailyStart: 05-20-2019 take 1 tablet by mouth once dailyMultivitamin Tablet Active 1 TAB PO Daily May 20, 2019 1:00amStart: 94-52-2286agyg 1 tablet by mouth once daily Multivitamin Tablet Active 1 TAB PO Daily May 20, 2019 12:00amnaproxen sodium 220 mg oral tablet (20 sources)Nonsteroidal Anti-inflammatory DrugStart: 67-98-2084fogq 1 tablet by mouth twice daily as needed for painStart: 01-10-2018 End: 25-81-5700vgdq 1 capsule by mouth twice dailyNaproxen Sodium 220 mg Capsule Discontinued 220 MG PO Twice daily January 10, 2018 12:00am May 20, 2019 1:43pmnitrofurantoin, macrocrystals 25 mg / nitrofurantoin, monohydrate 75 mg oral capsule (1 source)Nitrofuran AntibacterialStart: 10-14-2021 End: 49-26-3243rqjr 1 capsule by mouth twice dailynitrofurantoin, macrocrystal- monohydrate, (MACROBID) 100 MG capsule Take 1 capsule by mouth 2 timesdaily for 10 days 20 capsule 0 10/14/2021 10/24/2021 Activenystatin 043708 unt/ml oral suspension (20 sources)Polyene AntifungalStart: 93-69-6729jpxobkep (MYCOSTATIN) 105282 UNIT/ML suspension 11/25/2024 ActiveStart: 10-18-2023 End: 39-17-7880ohlp 5 mL by mouth four times dailynystatin (MYCOSTATIN) 070858 UNIT/ML suspension Take 5 mLs by mouth 4 times daily for 10 days Swishand swallow 200 mL 0 10/18/2023 10/28/2023 ActiveStart: 70-73-3354hffk 4 mL by mouth four times dailyNystatin 281226 UNIT/ML 4 ml swish and swallow Mouth/Throat Four times a day for 14 days Jan, Not-TakingStart: 64-55-6844egmj 5 mL by mouth four times dailynystatin (MYCOSTATIN) 114554 UNIT/ML suspension Take 5 mLs by mouth 4 times daily Swish and swallow. 200 mL 0 02/27/2023 ActiveStart: 11-25-2022 End: 09-13-8560vnfa 5 mL by mouth four times dailynystatin (MYCOSTATIN) 156924 UNIT/ML suspension Take 5 mLs by mouth 4 times daily Swish and swallow. 200 mL 0 11/25/2022 11/25/2022 Discontinued (DUPLICATE)Start: 41-56-2897kmed 5 mL by mouth four times dailynystatin (MYCOSTATIN) 804336 UNIT/ML suspension take 5 milliliters by mouth four times a day as directed 60 mL 2 08/15/2022 Active Start: 20-33-2305odzm 5 mL by mouth four times dailynystatin (MYCOSTATIN) 090589 UNIT/ML suspension Take 5 mLs by mouth 4 times daily 60 mL 2 05/29/2022 Active Start: 21-78-1934Ryxai: 17-93-0419iyqmaxhy (MYCOSTATIN) 569785 UNIT/GM cream Apply topically 2 times daily Apply topically 2 times daily. 60 g 0 02/08/2022 ActiveStart: 19-02-5737kwbd 5 mL by mouth four times dailynystatin (MYCOSTATIN) 146186 UNIT/ML suspension Take 5 mLs by mouth 4 times daily 150 mL 0 02/27/2021 ActiveNystatin 406669 units/g (4 sources)Nystatin 443005 units/g applied topically as directed four times a day Activeondansetron 4 mg disintegrating oral tablet (12 sources)Serotonin-3 Receptor AntagonistStart: 60-63-4026azyg 1 tablet by mouth three times daily as needed for nauseaondansetron (ZOFRAN-ODT) 4 MG disintegrating tablet Take 1 tablet by mouth 3 times daily as needed for Nausea or Vomiting 21 tablet 10/23/2023 ActiveStart: 10-23-2023 End: 88-12-5263ezlcowrezeg (ZOFRAN) injection 4 mgStart: 67-73-8429kguh 1 tablet by mouth every eight hours as needed for nauseaondansetron (ZOFRAN ODT) 4 MG disintegrating tablet Take 1 tablet by mouth every 8 hours as needed for Nausea or Vomiting 10 tablet 0 11/18/2020 ActiveStart: 11-18-2020 End: 46-49-6674jlvjmplpkjo (ZOFRAN) injection 4 mgStart: 03-31-2020 End: 66-84-7426obwepywczhc (ZOFRAN) injection 4 mg24 hr oxybutynin chloride 5 mg extended release oral tablet (2 sources)Cholinergic Muscarinic AntagonistStart: 54-43-0820lriy 1 tablet by mouth once dailyoxybutynin (DITROPAN XL) 5 MG extended release tablet Take 1 tablet by mouth daily 30 tablet 0 11/27/2020 Activepantoprazole 20 mg delayed release oral tablet (20 sources)Proton Pump InhibitorStart: 06-04-2022 End: 30-16-4412wvnjpozjsitk (ProtoNix) 20 MG EC tablet Take 20 mg by mouth. 07/10/2022 ActiveStart: 07-60-0982xefh 1 tablet by mouth once dailyStart: 99-64-4675yzgfkdhddtfj (PROTONIX) 20 MG tabletpilocarpine hydrochloride 5 mg oral tablet (20 sources)Cholinergic Receptor AgonistStart: 25-23-5262pbjh 1 tablet by mouth three times dailypravastatin sodium 40 mg oral tablet (20 sources)HMG-CoA Reductase InhibitorStart: 49-54-3565alzp 1 tablet by mouth once daily at bedtimePravastatin 40 mg ActivepredniSONE 20 mg oral tablet (20 sources)Start: 78-23-1314ypctgmJVAH (DELTASONE) 20 MG tablet 2 tablets daily x 2 days then 1 tablet 6 tablet 0 07/01/2023 ActiveStart: 83-14-5660qyjb 4 tablets by mouth once dailyStart: 27-88-1992cslq 40 mg by mouth once daily Prednisone Active 40 MG PO Daily March 01, 2023 12:00amStart: 01-30-2023 predniSONE (Deltasone) 20 MG tablet 01/30/2023 ActiveStart: 12-29-2017 End: 83-72-5886nmlr 3 tablets by mouth once dailyPrednisone 20 mg tablet Discontinued 60 MG PO Daily December 29, 2017 12:00am January 10, 2018 8:42am Start: 12-29-2017 End: 99-77-5433pwam 60 mg by mouth once dailyPrednisone Discontinued 60 MG PO Daily December 29, 2017 12:00am January 10, 2018 8:42ampsyllium 400 mg oral capsule (8 sources)Start: 25-07-1546Wlnla: 85-61-2785otxgohwx (METAMUCIL) 0.52 gram capsule Take by mouth See Admin Instructions . 07/04/2006 ActivePsyllium Husk (Fiber (Psyllium Husk)) 0.4 gram Capsule (15 sources)Start: 18-32-9941Iekvfidx Husk (Fiber (Psyllium Husk)) 0.4 gram Capsule Active 1 CAP PO Daily May 20, 2019 1:00amStart: 05-20-2019 Psyllium Husk (Fiber (Psyllium Husk)) 0.4 gram Capsule Active 1 CAP PO Daily May 20, 2019 12:00amPsyllium Husk - (4 sources)Psyllium Husk - as directed ActivePsyllium-Calcium (METAMUCIL PLUS CALCIUM) CAPS (20 sources)Psyllium-Calcium (METAMUCIL PLUS CALCIUM) CAPS Take by mouth Take with 8 oz water. ActivePsyllium-Calcium (METAMUCIL PLUS CALCIUM) CAPS Take by mouth Take with 8 oz water. 0 ActivePsyllium-Calcium (METAMUCIL PLUS CALCIUM) CAPS Take by mouth. Take with 8 oz water. 0 Activeraloxifene hydrochloride 60 mg oral tablet (20 sources)Estrogen Agonist/AntagonistStart: 71-59-3316oier 1 tablet by mouth once dailyStart: 12-29-2017 End: 68-52-4006seff 1 tablet by mouth once dailyRaloxifene 60 mg tablet Discontinued 60 MG PO Daily December 29, 2017 12:00am May 20, 2019 1:52pm tiZANidine 2 mg oral tablet (6 sources)Central alpha-2 Adrenergic AgonistStart: 33-34-0502vxid 1 tablet by mouth every eight hours for muscle spasmstiZANidine (Zanaflex) 2 MG tablet Indications: Spasm of muscle of lower back Take 1 tablet (2 mg) by mouth every 8 (eight) hours if needed for muscle spasms for up to 10 days. 30 tablet 02/03/2023 Activetopiramate 50 mg oral tablet (20 sources)Start: 12-80-9924rujq 1 tablet by mouth at bedtimetraMADol hydrochloride 50 mg oral tablet (20 sources)Opioid AgonistStart: 97-49-3835seic 1 tablet by mouth every six hours as needed for paintraMADol (ULTRAM) 50 MG tablet Take 1 tablet by mouth every 6 hours as needed for Pain. 08/12/2024 ActiveStart: 07-10-2024 End: 13-16-3092blzy 1 tablet by mouth every six hours as needed for paintraMADol (ULTRAM) 50 MG tablet Indications: Sprain of right ankle, unspecified ligament, initial encounter Take 1 tablet by mouth every 6 hours as needed for Pain for up to 3 days. Intended supply: 3days. Take lowest dose possible to manage pain Max Daily Amount: 200 mg 12 tablet 07/10/2024 07/13/2024 ActiveStart: 06-27-2022 End: 04-33-7418pljm 1 tablet by mouth twice daily as needed for painTramadol 50 mg Tablet Discontinued 50 MG PO Twice daily as needed for Pain June 27, 2022 1:00am July 03, 2022 10:30amtraMADol ER (Ultram-ER) 100 MG 24 hr tablet Take by mouth Daily as needed Do not crush, chew, or split. ActivetraZODone hydrochloride 50 mg oral tablet (1 source)Serotonin Reuptake InhibitorStart: 24-84-7018lgku 1 tablet by mouth once dailytraZODone (DESYREL) 50 MG tablet Take 1 tablet by mouth nightly 30 tablet 2 05/06/2023 Activetriamcinolone acetonide 1 mg/ml topical cream (5 sources)CorticosteroidStart: 02-40-1958mdvdvfltvrlvj (KENALOG) 0.1 % cream Indications: Allergic contact dermatitis, unspecified trigger Apply topically 2 times daily for 7-10 days. No more than 2 weeks. 30 g 0 04/16/2022 Activevitamin b12 1 mg oral tablet (18 sources)Vitamin T59cioe 1 tablet by mouth once dailycyanocobalamin (B-12) 1000 MCG tablet Take 1 (one) tablet (1,000 mcg total) by mouth daily . Active Vitamin D (8 sources)Start: 98-68-5344Lbpqelo D 2000 IU, Oral, BID, Ordered by another provider., Refills(s) 0, Prophylaxis Start Date: 03/24/19 Status: Ordered Completed/Discontinued Medications MedicationDrug Class(es)DatesSig (Normalized)Sig (Original)ALPRAZolam 0.5 mg oral tablet (20 sources)BenzodiazepineStart: 37-67-4847JQPFAXrrys (NIRAVAM) 0.5 MG dissolvable tablet Dissolve 1 (one) tablet (0.5 mg total) on top of tongue . 11/13/2011 ActiveStart: 11-13-2011 End: 16-26-9126uxap 1 tablet by mouth at bedtimeAlprazolam 0.5 mg tablet Discontinued 0.5 MG PO Bedtime December 29, 2017 12:00am June 03, 2019 11:13am take 1 tablet by mouth every twelve hoursALPRAZolam 0.5 MG 1 tablet Orally Twice a day Not-Takingcephalexin 500 mg oral capsule (18 sources)Cephalosporin AntibacterialStart: 06-03-2019 End: 03-32-8056zrtg 1 capsule by mouth every twelve hoursCephalexin 500 mg capsule Discontinued 500 MG PO Q12H June 03, 2019 1:00am March 27, 2022 8:11amdexamethasone phosphate 10 mg/ml injectable solution (1 source)CorticosteroidStart: 02-08-2023 End: 72-53-9449vrbeqnmhkqbuv (DECADRON) injection 8 mgketorolac tromethamine 10 mg oral tablet (18 sources)Nonsteroidal Anti-inflammatory Drug, Cyclooxygenase InhibitorStart: 06-03-2019 End: 48-89-6639ryir 1 tablet by mouth every six hours as needed for pain Ketorolac 10 mg tablet Discontinued 10 MG PO Q6H as needed for pain 10 June 03, 2019 1:00am May 29, 2022 9:36am50 ml magnesium sulfate 40 mg/ml injection (1 source)Start: 11-14-2023 End: 69-43-4105gdsmfeyae sulfate 2000 mg in 50 mL IVPB premixmultivitamin with minerals tablet (4 sources) End: 77-63-6902nptq 1 tablet by mouth once dailymultivitamin with minerals tablet Take 1 (one) tablet by mouth daily . 01/15/2025 Discontinued (Patient's Request)take 1 tablet by mouth once dailymultivitamin with minerals tablet Take 1 (one) tablet by mouth daily . 0 Activepotassium chloride 10 meq extended release oral tablet (6 sources)Start: 11-14-2023 End: 61-30-9730dxfnxmyre chloride (KLOR-CON) extended release tablet 40 mEq Start: 97-33-9460ohsljjymv chloride (KLOR-CON M) 20 MEQ extended release tablet Take one tablet on Saturday, and Saturday. 3 tablet 0 11/22/2020 Active 50 ml sodium chloride 9 mg/ml injection (2 sources)Start: 10-23-2023 End: 42-85-0986mldblk chloride 0.9 % bolus 1,000 mLStart: 11-18-2020 End: 10.9 % sodium chloride bolus Problems Active Problems Problem ClassificationProblemDateDocumented DateEpisodic/ChronicAcquired foot deformities (2 sources)Right foot drop; Translations: [Foot drop, right foot]11-29-2024 EpisodicAllergic reactions (3 sources)Inflammatory dermatosis; Translations: [Dermatitis, unspecified] Onset: 691291-98-7013MlzsoosoLaxdtxbyv infection; unspecified site (2 sources)Other specified bacterial agents as the cause of diseases classified elsewhere; Translations: [Other specified bacterial agents as the cause of diseases classified elsewhere]Onset: 72-49-8298NhwuxgfyUwewetb dysrhythmias (20 sources)Atrial flutter; Translations: [Atypical atrial flutter]Onset: 10-23-2023 Resolved: 198996-41-9585YhncwdmFqedrbmy (20 sources)Cortical senile cataract; Translations: [Cortical age-related cataract, unspecified eye]Onset: 325613-38-5397XdhfecuDspsrjo kidney disease (20 sources)Chronic kidney disease stage 3; Translations: [Chronic renal disease, stage III]Onset: 10-26-2021 Resolved: 221956-15-5394CmdkpuoFzcakqnsvq and other anemia (2 sources)Hemoglobin low; Translations: [Anemia, unspecified]EpisodicDisorders of lipid metabolism (20 sources)Hyperlipidemia; Translations: [Hyperlipidemia, unspecified]Onset: 773678-81-3257EpeiwokIxcubgyyfsmcto and diverticulitis (20 sources)Diverticulitis; Translations: [Diverticulitis of intestine, part unspecified, without perforation or abscess without bleeding]Onset: 02-08-2011 87-06-3685FylnqntKygmuxkski disorders (20 sources)Gastroesophageal reflux disease; Translations: [Gastro-esophageal reflux disease without esophagitis]Onset: 735308-41-5922VkvkqynChavczznw hypertension (20 sources)Hypertensive disorder; Translations: [Essential hypertension]Onset: 729324-47-7606BjdydnrMlihr of unknown origin (1 source)Fever; Translations: [Fever, unspecified fever cause]Episodic Genitourinary symptoms and ill-defined conditions (20 sources)Urinary incontinence; Translations: [Unspecified urinary incontinence]Onset: 39-89-2542YzqqtbjAfiynrko; including migraine (20 sources)Cluster headache; Translations: [Migraine]Onset: 02-08-2011 Resolved: 649962-01-9696FywinxpGycphyip; including migraine (1 source)Acute headache; Translations: [Acute nonintractable headache, unspecified headache type]EpisodicMalaise and fatigue (2 sources)Asthenia; Translations: [Weakness]EpisodicMenopausal disorders (1 source)Postmenopausal atrophic vaginitis; Translations: [Postmenopausal atrophic vaginitis]Onset: 34-53-1386NzigcbwEndrrkdgthxyv mental health disorders (9 sources)Bruxism (teeth grinding); Translations: [Other somatoform disorders] Onset: 290831-17-1590PauzxnrUudr disorders (20 sources)Dysthymia; Translations: [Dysthymic disorder]Onset: 04-24-2011 04-52-5079RjxujveCbndayj (2 sources)Candidiasis of vagina; Translations: [Candidiasis of vulva and vagina]EpisodicNutritional deficiencies (20 sources)Vitamin D deficiency; Translations: [Vitamin D deficiency, unspecified]Onset: 390085-75-9595DamrpbaUcsuujnykji deficiencies (1 source)Vitamin B deficiency; Translations: [Deficiency of other specified B group vitamins]Onset: 86-51-9529QwenxfgrMlbiodjcthffpo (20 sources)Localized, primary osteoarthritis of the shoulder region; Translations: [Primary osteoarthritis, unspecified shoulder]Onset: 08-11-2021 74-19-7685EimceplVdacf acquired deformities (1 source)Scoliosis, unspecified; Translations: [Scoliosis, unspecified]Onset: 71-41-0067FslyixfOdddx acquired deformities (2 sources)Other secondary scoliosis, lumbar region; Translations: [Other secondary scoliosis, lumbar region]Onset: 26-29-5017KjsflmqLirzl and unspecified benign neoplasm (1 source)Polyp of colon; Translations: [Polyp of colon]Onset: 09-16-2023 EpisodicOther [employer]ER infection and poliomyelitis (8 sources)H/O: wxletdujbmoub68-29-5422GajjeuqeSdevo connective tissue disease (2 sources)Pain in right foot; Translations: [Pain in right foot]08-19-2024 EpisodicOther diseases of kidney and ureters (1 source)Cyst of kidney; Translations: [Cyst of kidney, acquired]03-13-2023 EpisodicOther ear and sense organ disorders (8 sources)Hearing loss; Translations: [Unspecified hearing loss, unspecified ear]Onset: 030153-07-1894UbikhunEreut ear and sense organ disorders (2 sources)Sensorineural hearing loss, bilateral; Translations: [Sensorineural hearing loss, bilateral]Onset: 996411-53-1143RabdxzxUfvut ear and sense organ disorders (1 source)Sensorineural hearing loss, bilateral; Translations: [Sensorineural hearing loss, bilateral]Onset: 18-69-2873CoaskviVgvvx ear and sense organ disorders (2 sources)Unspecified hearing loss, unspecified ear; Translations: [Unspecified hearing loss, unspecified ear]Onset: 09-02-1904PglufqzPqnct female genital disorders (1 source)Burning sensation of vagina; Translations: [Unspecified condition associated with female genital organs and menstrual cycle]EpisodicOther gastrointestinal disorders (20 sources)Irritable bowel syndrome; Translations: [Irritable bowel syndrome without diarrhea]Onset: 713481-13-9413AolbdtnDsrhi gastrointestinal disorders (2 sources)Diarrhea of presumed infectious origin; Translations: [Diarrhea, unspecified]EpisodicOther gastrointestinal disorders (1 source)Diarrhea; Translations: [Diarrhea, unspecified]EpisodicOther gastrointestinal disorders (8 sources)Wjuacneprgpm08-47-0198KicygkfgKdrcy lower respiratory disease (1 source)Cough; Translations: [Cough, unspecified type]34-68-8984QwgvchwhZoiji nervous system disorders (20 sources)Chronic pain; Translations: [Other chronic pain]ChronicOther nervous system disorders (5 sources)Other chronic painChronicOther nervous system disorders (2 sources)Piriformis syndrome; Translations: [Lesion of sciatic nerve, right lower limb]ChronicOther nervous system disorders (2 sources)Lesion of sciatic nerve, right lower limbChronicOther non-traumatic joint disorders (1 source)Shoulder pain; Translations: [Pain in right shoulder]EpisodicOther non-traumatic joint disorders (1 source)Pain in right hipEpisodicOther non-traumatic joint disorders (2 sources)Arthralgia of the ankle and/or foot; Translations: [Pain in right ankle and joints of right foot]54-07-6783HirjlzayEbyaz non-traumatic joint disorders (4 sources)Instability of joint of right ankle; Translations: [Other instability, right ankle]78-27-5743QyasdqvmOltla nutritional; endocrine; and metabolic disorders (20 sources)Morbid obesity; Translations: [Morbid (severe) obesity due to excess calories]Onset: 709642-67-7117LiykkidScpzt upper respiratory disease (2 sources)Nasal congestion; Translations: [Nasal congestion]Onset: 02-05-2025 63-03-3064QthulporOkrqb upper respiratory disease (1 source)Nasal congestion; Translations: [Nasal congestion]Onset: 02-05-2025 EpisodicOther upper respiratory infections (20 sources)Chronic sinusitis; Translations: [Chronic sinusitis, unspecified] Onset: 028651-58-9644BnqwhlaDznmu upper respiratory infections (13 sources)Acute frontal sinusitis; Translations: [Acute pansinusitis]Onset: 29-34-3965UtjndbveBzmzilhv codes; unclassified (20 sources)Sleep apnea; Translations: [Sleep apnea, unspecified]Onset: 477443-88-4935PqxlsdhOfweqhx on above:USES CPAPResidual codes; unclassified (7 sources)Obstructive sleep apnea syndrome; Translations: [Obstructive sleep apnea (adult) (pediatric)]Onset: 071447-41-8914ImwwvjoNerhemqe codes; unclassified (2 sources)Obstructive sleep apnea (adult) (pediatric); Translations: [Obstructive sleep apnea (adult) (pediatric)]Onset: 01-81-8584WzrthixIbwzcudm codes; unclassified (1 source)History of arthroscopic procedure on shoulder; Translations: [Other specified postprocedural states]EpisodicSpondylosis; intervertebral disc disorders; other back problems (20 sources)Solitary sacroiliitis; Translations: [Sacroiliitis, not elsewhere classified]Onset: 13-21-5686VendcibHvrcfjubazi; intervertebral disc disorders; other back problems (11 sources)Chronic low back pain; Translations: [Lumbago with sciatica, right side]EpisodicSprains and strains (14 sources)Shoulder strain; Translations: [Sprain of right ankle]Onset: 263965-32-9882IvjspybyYlqigrd disorders (20 sources)Hypothyroidism; Translations: [Hypothyroidism, unspecified]Onset: 525851-42-7238HnijthjPwyiacfptzfe (1 source)Patient encounter status; Translations: [Visit for screening mammogram]Unclassified (8 sources)Asymptomatic microscopic mzeyikrmo95-52-6671Efuozzxowvbx (8 sources)Drug therapy -84-9372Ttgpzxwcrgke (1 source)Cough, unspecified; Translations: [Cough, unspecified]Onset: 31-98-3295Pnfhalz tract infections (1 source)Acute cystitis; Translations: [Acute cystitis with hematuria]Episodic Viral infection (3 sources)Viral disease; Translations: [Disease caused by nCoV]07-01-2023 EpisodicViral infection (1 source)COVID-19; Translations: [COVID-19]Onset: 06-24-2024 Past or Other Problems Problem ClassificationProblemDateDocumented DateEpisodic/ChronicAbdominal hernia (20 sources)Diaphragmatic hernia; Translations: [Diaphragmatic hernia without obstruction or gangrene]Onset: 572211-77-1900YyjcckxqOfrntyrwb pain (20 sources)Epigastric pain; Translations: [Epigastric pain]Onset: 04-30-2012 Resolved: 808672-18-0815LfhkvbimZoszgf; other and unspecified primary (20 sources)H/O: neoplasm; Translations: [Personal history of other diseases of the digestive system]Onset: 495088-36-8731WrizasroAkikcnq dysrhythmias (20 sources)Palpitations; Translations: [Tachycardia]Onset: 04-24-2011 Resolved: 326823-50-5619OhhquuydSqclnua dysrhythmias (6 sources)Atypical atrial flutter; Translations: [Atypical atrial flutter] Resolved: 391179-56-6726Fgpwwkrz of mouth; excluding dental (20 sources)Glossodynia; Translations: [Glossodynia]Onset: 01-14-2012 Resolved: 936594-25-7812XkstkrftXsaidwpri of teeth and jaw (13 sources)Temporomandibular joint disorder; Translations: [Unspecified temporomandibular joint disorder, unspecified side]Onset: EpisodicFluid and electrolyte disorders (1 source)Hypokalemia; Translations: [Hypokalemia]Onset: 78-51-0835Scqnvttn Gastritis and duodenitis (20 sources)Gastritis; Translations: [Gastritis, unspecified, without bleeding] Onset: 05-05-2012 Resolved: 399833-76-9653EpmdqpepWxvdqunpcshwa symptoms and ill-defined conditions (20 sources)Increased frequency of urination; Translations: [Nocturia]Onset: 459520-38-4185EkkmcfruZojvtjkhjit (13 sources)Internal hemorrhoids; Translations: [Other hemorrhoids]Onset: 429896-01-2849OubwaxfeZwonlhnoikekc and screening for infectious disease (1 source)Contact with and (suspected) exposure to other viral communicable diseases; Translations: [Exposureto COVID-19 virus]EpisodicNausea and vomiting (4 sources)Nausea, vomiting and diarrhea; Translations: [Nausea with vomiting, unspecified]Onset: 92-91-2644EysyhnbzRazdk and unspecified benign neoplasm (10 sources)Benign neoplasm of stomach; Translations: [Benign neoplasm of stomach]Onset: 242977-97-7408ZusyddcrGwrdj and unspecified benign neoplasm (20 sources)Tubular adenoma of colon; Translations: [Benign neoplasm of colon, unspecified]Onset: 210406-44-4679XcedtbgkQtceh and unspecified benign neoplasm (16 sources)History of polyp of colon; Translations: [Personal history of colonic polyps]Onset: 384775-27-6089XwbycievVertc connective tissue disease (13 sources)H/O: arthritis; Translations: [Personal history of other diseases of the musculoskeletal system andconnective tissue]Onset: EpisodicOther disorders of stomach and duodenum (15 sources)Intestinal metaplasia of gastric mucosa; Translations: [Gastric intestinal metaplasia, unspecified]Onset: 47-45-7918AczfrejeMuuse gastrointestinal disorders (20 sources)Dysphagia; Translations: [Dysphagia, unspecified]Onset: 04-30-2012 Resolved: 072288-58-1481IygyccbwIscwe gastrointestinal disorders (1 source)Diarrhea, unspecified; Translations: [Diarrhea, unspecified]Onset: 65-34-1682KhsptmbiVunwf nutritional; endocrine; and metabolic disorders (2 sources)Other symptoms and signs concerning food and fluid intake; Translations: [Other symptoms concerningnutrition, metabolism, and development] Onset: 109671-21-5367AmxkhmvzWdlys screening for suspected conditions (not mental disorders or infectious disease) (12 sources)Patient encounter status; Translations: [Encounter for screening mammogram for malignant neoplasm of breast]Onset: 94-02-4482AiuckmmfJuyvm skin disorders (20 sources)Disorder of connective tissue; 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, unspecified]Onset: 07-28-2020 Resolved: 213262-57-8008YkffbiuUdzuj skin disorders (20 sources)Mass of neck; Translations: [Localized swelling, mass and lump, neck]Onset: 08-28-2013 Resolved: 077415-44-6273KvmdqnxlZbmxav media and related conditions (14 sources)Acute transudative otitis media; Translations: [Fluid level behind tympanic membrane]Onset: 75-23-3365SxmvvwjyDvfxskdv codes; unclassified (14 sources)Chronic back pain ; Translations: [Dorsalgia, unspecified]Onset: 340715-68-4070HggdvkewQbracnstkoyi (16 sources)Other low back pain; Translations: [Other low back pain]Unclassified (3 sources)Other low back pain M54.59Unclassified (11 sources)Onset: 05-06-2023 Resolved: 582849-92-2706Btprporfnkbf (1 source)Cough, unspecified; Translations: [Cough, unspecified]Onset: 02-05-2025 Results Test NameValueInterpretationReference RangeFacilityAlanine aminotransferase [Enzymatic activity/volume] in Serum or PlasmaOrdered By: Obie Hylton on 71-93-3125VDO [Catalytic activity/Vol]11 U/LNormal7-52V[facility] Health AdministrationComment on above:Order Comment: FASTING.JKWPerformed By: #### ESR, CMP, ADDONUAPLUS, CBC #### [address] #### C3, CH50, C4 #### [facility] ,Albumin [Mass/volume] in Serum or Plasma by Bromocresol green (BCG) dye binding methoOrdered By: Obie Hylton on 59-78-4894Smkhkpv BCG dye [Mass/Vol]4.2 g/dL 3.5-5.7FFairfield Medical CenterAlkaline phosphatase [Enzymatic activity/volume] in Serum or PlasmaOrdered By: Obie Hylton on 86-55-6768NUF [Catalytic activity/Vol]72 U/WZwgsxk78-514XhxvoshibVeterans Health Administration Comment on above:Order Comment: FASTING.JKWResult Comment: PERFORMED BY: [place] [address] PATHOLOGIST PERFECT BINDER FEEDER OFFBEARER CALVIN MILIAN M.D.Performed By: #### ESR, CMP, ADDONUAPLUS, CBC #### [place] [address] [place] #### C3, CH50, C4 #### [facility] ,Appearance of UrineOrdered By: Obie Hylton on 92-51-4649Hktghuirlr (U)Clear NormalCleWestern Reserve HospitalComment on above:Order Comment: FASTING.JKW Name Collection Type:: Clean-Voided MidstreamPerformed By: #### ESR, CMP, ADDONUAPLUS, CBC #### [address] #### C3, CH50, C4 #### [facility] ,Aspartate aminotransferase [Enzymatic activity/volume] in Serum or Plasma Ordered By: Obie Hylton on 74-54-2468RLU [Catalytic activity/Vol]15 U/LNormal 13-39[facility] AdministrationComment on above:Order Comment: FASTING.JKWPerformed By: #### ESR, CMP, ADDONUAPLUS, CBC #### [place] [address] [place] #### C3, CH50, C4 #### [facility] ,Bacteria [Presence] in Urine by AutomatedOrdered By: Obie Hylton on 32-24-3232Hlafsikl Auto Ql (U)Rare [HPF]None SeenVeterans Health AdministrationBasophils [#/volume] in Blood by Automated countOrdered By: Obie Hylton on 72-77-4805Vmkizcrnm (Bld) [#/Vol]0.0 10*3/uLNormal0.0-0.2FFairfield Medical CenterComment on above:Order Comment: FASTING.JKWPerformed By: #### ESR, CMP, ADDONUAPLUS, CBC #### [place] [address] [place] #### C3, CH50, C4 #### [facility] ,Basophils/100 leukocytes in Blood by Automated countOrdered By: Obie Hylton on 24-67-2883Oeluzwmzw/100 WBC (Bld)0.4 %Normal.[facility] AdministrationComment on above:Order Comment: FASTING.JKWPerformed By: #### ESR, CMP, ADDONUAPLUS, CBC #### [place] [address] [place] #### C3, CH50, C4 #### [facility] ,Bilirubin Test strip Ql (U)Ordered By: Obie Hylton on 90-61-4933Zgtvohbds Ql (U)NegativeNegativeVeterans Health AdministrationBilirubin.total [Mass/volume] in Serum or PlasmaOrdered By: Obie Hylton on 02-26-2025 Bilirubin [Mass/Vol]0.5 mg/dLNormal0.3-1.0[facility] Comment on above:Order Comment: FASTING.JKWPerformed By: #### ESR, CMP, ADDONUAPLUS, CBC #### [place] [address] [place] #### C3, CH50, C4 #### [facility] ,Calcium [Mass/volume] in Serum or PlasmaOrdered By: Obie Hylton on 89-58-0970Lkpafow [Mass/Vol]9.1 mg/dLNormal8.6-10.3FFairfield Medical CenterComment on above:Order Comment: FASTING.JKWPerformed By: #### ESR, CMP, ADDONUAPLUS, CBC #### [place] [address] [place] #### C3, CH50, C4 #### [facility] ,Carbon dioxide, total [Moles/volume] in Serum or PlasmaOrdered By: Obie Hylton on 11-79-2119NU6 [Moles/Vol]27.5 mmol/NHyfbqi51.0-31.0V[facility] Health AdministrationComment on above:Order Comment: FASTING.JKWPerformed By: #### ESR, CMP, ADDONUAPLUS, CBC #### [facility] [address] [place] [address] [place] #### C3, CH50, C4 #### [facility] ,Chloride [Moles/volume] in Serum or PlasmaOrdered By: Obie Hylton on 90-60-5267Vmkktqrf [Moles/Vol]107 mmol/YPejxuh08-707NvoazuehjVeterans Health AdministrationComment on above:Order Comment: FASTING.JKWPerformed By: #### ESR, CMP, ADDONUAPLUS, CBC #### [place] [address] [place] #### C3, CH50, C4 #### [facility] ,Color of Urine by AutoOrdered By: Obie Hylton on 35-70-8392Ggzfl (U) Light-yellowNormalYellowVeterans Health AdministrationComment on above:Order Comment: FASTING.JKW Name Collection Type:: Clean-Voided MidstreamPerformed By: #### ESR, CMP, ADDONUAPLUS, CBC #### [place] [address] [place] #### C3, CH50, C4 #### [facility] ,Complement C3on 00-18-9281Bfaqfglmht C3114 mg/gCFkarpn19-435Sbe [facility] Physician GroupComment on above:Order Comment: FASTING.JKWResult Comment: Performed at: - [facility] [id number] Motorcycle Deliverer: Usman Draper PhD, Phone: [phone] By: #### ESR, CMP, ADDONUAPLUS, CBC #### [place] [address] [place] #### C3, CH50, C4 #### [facility] ,Complement C4on 27-04-7559Vbekuobdim C424 mg/kQDcanso60-97Ifj [facility] Physician GroupComment on above:Order Comment: FASTING.Heladio Comment: Performed at: [address] [id number] Motorcycle Deliverer: Usman Draper PhD, Phone: [phone] PERFORMED BY: [place] [address] PATHOLOGIST PERFECT BINDER FEEDER OFFBEARER CALVIN MILIAN M.D.Performed By: #### ESR, CMP, ADDONUAPLUS, CBC #### [address] #### C3, CH50, C4 #### [facility] ,Complement Total (CH50)on 82-17-7342Nysnrrrpxy Total (CH50)55Normal>41The [facility] Physician GroupComment on above:Order Comment: FASTING.Heladio Comment: Age Male Female 1 - 30 [...] determine out of range values. Performed at: [address] [id number] Motorcycle Deliverer: Usman Draper PhD, Phone: [phone] PERFORMED BY: [place] [address] PATHOLOGIST PERFECT BINDER FEEDER OFFBEARER CALVIN MILIAN M.D.Performed By: #### ESR, CMP, ADDONUAPLUS, CBC #### [address] #### C3, CH50, C4 #### [facility] ,Complete Blood Count Auto Diffon 58-12-9636Vrnq Corpuscular HGB Conc34.1 g/dL Ulwhhr46.0-35.0The [facility] Physician GroupComment on above:Order Comment: FASTING.JKWPerformed By: #### ESR, CMP, ADDONUAPLUS, CBC #### [place] [address] [place] #### C3, CH50, C4 #### [facility] ,NRBC%0.0 /100{WBC}Normal0-0.5The [facility] Physician GroupComment on above: Order Comment: FASTING.JKWPerformed By: #### ESR, CMP, ADDONUAPLUS, CBC #### [address] #### C3, CH50, C4 #### [facility] ,White Blood Count6.8 [CFU]/mLNormal3.8-11.6The [facility] Physician GroupComment on above:Order Comment: FASTING.JKWPerformed By: #### ESR, CMP, ADDONUAPLUS, CBC #### [address] #### C3, CH50, C4 #### [facility] ,Comprehensive Metabolic Panelon 73-18-4008Xtxzggk [Mass/Vol]4.2 g/dLNormal 3.5-5.7The [facility] Physician GroupComment on above:Order Comment: FASTING.JKW Performed By: #### ESR, CMP, ADDONUAPLUS, CBC #### [place] [address] [place] #### C3, CH50, C4 #### [facility] ,GFR/1.73 sq M.predicted MDRD (S/P/Bld) [Vol rate/Area]41.957 mL/min/{1.73_m2} NormalThe [facility] Physician GroupComment on above:Order Comment: FASTING.JKW Performed By: #### ESR, CMP, ADDONUAPLUS, CBC #### [place] [address] [place] #### C3, CH50, C4 #### [facility] ,Creatinine [Mass/volume] in Serum or PlasmaOrdered By: Obie Hylton on 27-56-9375Cbanorjcip [Mass/Vol]1.29 mg/dLHigh0.60-1.20[facility] Health AdministrationComment on above:Order Comment: FASTING.JKWPerformed By: #### ESR, CMP, ADDONUAPLUS, CBC #### [place] [address] [place] #### C3, CH50, C4 #### [facility] ,Dipstick and Microscopicon 11-02-2745Rkdgddms,UrineRareNormalNone SeenSt. Mary'S Medical Center Physician GroupComment on above:Order Comment: FASTING.JKW Name Collection Type:: Clean-Voided MidstreamPerformed By: #### ESR, CMP, ADDONUAPLUS, CBC #### [place] [address] [place] #### C3, CH50, C4 #### [facility] ,Bilirubin,UrineNegativeNormalNegativeSt. Mary'S [facility] Center Physician GroupComment on above:Order Comment: FASTING.JKW Name Collection Type:: Clean-Voided MidstreamPerformed By: #### ESR, CMP, ADDONUAPLUS, CBC #### [place] [address] [place] #### C3, CH50, C4 #### [facility] ,Glucose Ql (U)NormalNormalNormRiver Point Behavioral Health Physician GroupComment on above: Order Comment: FASTING.JKW Name Collection Type:: Clean-Voided MidstreamPerformed By: #### ESR, CMP, ADDONUAPLUS, CBC #### [facility] [address] [place] [address] [place] #### C3, CH50, C4 #### [facility] ,Hyaline Casts,UrineNoneNormal0-8The [facility] Physician GroupComment on above: Order Comment: FASTING.JKW Name Collection Type:: Clean-Voided MidstreamPerformed By: #### ESR, CMP, ADDONUAPLUS, CBC #### [address] #### C3, CH50, C4 #### [facility] ,Mucus,UrineRareNormalThe [facility] Physician GroupComment on above:Order Comment: FASTING.JKW Name Collection Type:: Clean-Voided MidstreamResult Comment: PERFORMED BY: [place] [address] PATHOLOGIST PERFECT BINDER FEEDER OFFBEARER CALVIN MILIAN M.D.Performed By: #### ESR, CMP, ADDONUAPLUS, CBC #### [address] #### C3, CH50, C4 #### [facility] ,Nitrite,UrineNegativeNormalNegativeThe [facility] Physician GroupComment on above:Order Comment: FASTING.JKW Name Collection Type:: Clean-Voided MidstreamPerformed By: #### ESR, CMP, ADDONUAPLUS, CBC #### [address] #### C3, CH50, C4 #### [facility] ,Occult Blood,UrineTraceNormalNegativeThe [facility] Physician GroupComment on above:Order Comment: FASTING.JKW Name Collection Type:: Clean-Voided MidstreamPerformed By: #### ESR, CMP, ADDONUAPLUS, CBC #### [address] #### C3, CH50, C4 #### [facility] ,Protein,UrineNegativeNormalNegativeThe [facility] Physician GroupComment on above:Order Comment: FASTING.JKW Name Collection Type:: Clean-Voided MidstreamPerformed By: #### ESR, CMP, ADDONUAPLUS, CBC #### [place] [address] [place] #### C3, CH50, C4 #### [facility] ,RBC,Zynpg4-1Uqgwrw1-4Oif [facility] Physician GroupComment on above:Order Comment: FASTING.JKW Name Collection Type:: Clean-Voided MidstreamPerformed By: #### ESR, CMP, ADDONUAPLUS, CBC #### [address] #### C3, CH50, C4 #### [facility] ,Specificy [place],Urine1.202Tuctnc2.001-1.030The [facility] Comment on above:Order Comment: FASTING.JKW Name Collection Type:: Clean-Voided MidstreamPerformed By: #### ESR, CMP, ADDONUAPLUS, CBC #### [address] #### C3, CH50, C4 #### [facility] ,Squamous Epithelial Cell,Zuoya7-7Cvuihu5-0Jxe [facility] Physician GroupComment on above:Order Comment: FASTING.JKW Name Collection Type:: Clean-Voided MidstreamPerformed By: #### ESR, CMP, ADDONUAPLUS, CBC #### [place] [address] [place] #### C3, CH50, C4 #### [facility] ,Urobilinogen,UrineNormalNormalNormalThe [facility] Physician GroupComment on above:Order Comment: FASTING.JKW Name Collection Type:: Clean-Voided MidstreamPerformed By: #### ESR, CMP, ADDONUAPLUS, CBC #### [place] [address] [place] #### C3, CH50, C4 #### [facility] ,WBC,Hkzjn4-0Bhjvhm2-8Qzy [facility] Physician GroupComment on above:Order Comment: FASTING.JKW Name Collection Type:: Clean-Voided MidstreamPerformed By: #### ESR, CMP, ADDONUAPLUS, CBC #### [place] [address] [place] #### C3, CH50, C4 #### [facility] ,Eosinophils [#/volume] in Blood by Automated countOrdered By: Obie Hylton on 53-47-5135Ojtlzeaagxm (Bld) [#/Vol]0.1 10*3/uLNormal0.0-0.45[facility] AdministrationComment on above:Order Comment: FASTING.JKWPerformed By: #### ESR, CMP, ADDONUAPLUS, CBC #### [place] [address] [place] #### C3, CH50, C4 #### [facility] ,Eosinophils/100 leukocytes in Blood by Automated countOrdered By: Obie Hylton on 38-90-5939Mpvwpxjeivj/100 WBC (Bld)1.2 %Normal.[facility] Health AdministrationComment on above:Order Comment: FASTING.JKWPerformed By: #### ESR, CMP, ADDONUAPLUS, CBC #### [address] #### C3, CH50, C4 #### [facility] ,Epithelial cells.squamous [#/area] in Urine sediment by Automated countOrdered By: Obie Hylton on 34-46-7098Shydghqsrh cells.squamous Auto (Urine sed) [#/Area]3-4 [HPF]High0-2FFairfield Medical CenterErythrocyte Sedimentation Rateon 11-06-4374VFU (Bld) [Velocity]21 mm/hNormal0The [facility] Physician GroupComment on above:Order Comment: FASTING.JKWResult Comment: PERFORMED BY: [place] [address] PATHOLOGIST PERFECT BINDER FEEDER OFFBEARER CALVIN MILIAN M.D.Performed By: #### ESR, CMP, ADDONUAPLUS, CBC #### [place] [address] [place] #### C3, CH50, C4 #### [facility] ,Erythrocyte distribution width [Ratio] by Automated countOrdered By: Obie Hylton on 36-61-3683Galgnukevyt distribution width (RBC) [Ratio]14.8 %Normal 11.9-15.3FFairfield Medical CenterComment on above:Order Comment: FASTING.JKWPerformed By: #### ESR, CMP, ADDONUAPLUS, CBC #### [facility] [address] [place] [address] [place] #### C3, CH50, C4 #### [facility] ,Erythrocyte sedimentation rate by Photometric methodOrdered By: Obie Hylton on 67-78-7509ZUT Photometric method (Bld) [Velocity]21 mm/hr0-[facility] Health AdministrationErythrocytes [#/area] in Urine sediment by Automated countOrdered By: Obie Hylton on 68-99-5234OFI Auto (Urine sed) [#/Area]3-4 [HPF]0-4FFairfield Medical CenterErythrocytes [#/volume] in Blood by Automated countOrdered By: Obie Hylton on 08-61-6523VBD (Bld) [#/Vol]4.27 10*6/uLNormal3.60-5.00[facility] Health AdministrationComment on above:Order Comment: FASTING.JKWPerformed By: #### ESR, CMP, ADDONUAPLUS, CBC #### [facility] [address] [place] [address] [place] #### C3, CH50, C4 #### [facility] ,Glomerular filtration rate [Volume Rate/Area] in Serum, Plasma or Blood by CreatinineOrdered By: Obie Hylton on 90-30-1067Rfjilvuyud filtration rate [Volume Rate/Area] in Serum, Plasma or Blood by Dbzdjweqpu82.957 mL/MinVeterans Health AdministrationGlucose [Mass/volume] in Serum or PlasmaOrdered By: Obie Hylton on 64-85-3314Zfhnvmd [Mass/Vol]90 mg/kZHkrsum35-107ItbmelmnsVeterans Health AdministrationComment on above:ADA recommended reference rangeRandom Glucose Reference Range is dependent on time and content of last meal. Glucose of more than 200 mg/dL in a nonstressed, ambulatory subject supports the diagnosisof Diabetes Mellitus.Order Comment: FASTING.JKWResult Comment: Random Glucose Reference Range is dependent on time and content of last meal. Glucose of more than 200 mg/dL in a nonstressed, ambulatory subject supports the diagnosis of Diabetes Mellitus. ADA recommended reference rangePerformed By: #### ESR, CMP, ADDONUAPLUS, CBC #### [place] [address] [place] #### C3, CH50, C4 #### [facility] ,Glucose [Mass/volume] in Urine by Test stripOrdered By: Obie Hytlon on 73-65-8101Hnitdlu Test strip (U) [Mass/Vol]Normal mg/dLNoPremier Health Miami Valley Hospital SouthHematocrit [Volume Fraction] of Blood by Automated countOrdered By: Obie Hylton on 79-56-2129Ecjcshpfkk (Bld) [Volume fraction]38.6 %Normal 34.0-46.4FFairfield Medical CenterComment on above:Order Comment: FASTING.JKWPerformed By: #### ESR, CMP, ADDONUAPLUS, CBC #### [place] [address] [place] #### C3, CH50, C4 #### [facility] ,Hemoglobin Test strip Ql (U)Ordered By: Obie Hylton on 52-42-1828Vdjwtqgvfv Ql (U)TraceHighNegGrant HospitalHemoglobin [Mass/volume] in BloodOrdered By: Obie Hylton on 28-84-7994Uidelnqrve (Bld) [Mass/Vol]13.2 g/aGSxqxjw27.8-15.4FFairfield Medical CenterComment on above:Order Comment: FASTING.JKWPerformed By: #### ESR, CMP, ADDONUAPLUS, CBC #### [place] [address] [place] #### C3, CH50, C4 #### [facility] ,Hyaline casts [#/area] in Urine sediment by Automated countOrdered By: Obie Hylton on 07-92-0651Rixprqr casts Auto (Urine sed) [#/Area]None [LPF]0-8 [facility] Health AdministrationKetones [Presence] in Urine by Test strip Ordered By: Obie Hylton on 07-45-7554Dytbxig Ql (U)NegativeNormalNegative [facility] AdministrationComment on above:Order Comment: FASTING.[facility] Name Collection Type:: Clean-Voided MidstreamPerformed By: #### ESR, CMP, ADDONUAPLUS, CBC #### [facility] [address] [place] [address] [place] #### C3, CH50, C4 #### [facility] ,Leukocyte esterase [Presence] in Urine by Test stripOrdered By: Obie Hylton on 58-10-8687Jsdevbpiq esterase Test strip Ql (U)NegativeNormalNegGrant HospitalComment on above:Order Comment: FASTING.JK Name Collection Type:: Clean-Voided MidstreamPerformed By: #### ESR, CMP, ADDONUAPLUS, CBC #### [facility] [address] [place] [address] [place] #### C3, CH50, C4 #### [facility] ,Leukocytes [#/area] in Urine sediment by Automated countOrdered By: Obie Hylton on 82-27-9525UAW Auto (Urine sed) [#/Area]1-2 [HPF]0-4FFairfield Medical CenterLeukocytes [#/volume] corrected for nucleated erythrocytes in Blood by Automated counOrdered By: Obie Hylton on 49-53-2243DNS corrected for nucl RBC Auto (Bld) [#/Vol]6.8 10*3/uL3.8-11.6FFairfield Medical Center Leukocytes [#/volume] in Blood by Automated countOrdered By: Obie Hylton on 67-77-4809ECO (Bld) [#/Vol]6.8 10*3/uLNormal3.8-11.6FFairfield Medical CenterComment on above:Order Comment: FASTING.JKWPerformed By: #### ESR, CMP, ADDONUAPLUS, CBC #### [place] [address] [place] #### C3, CH50, C4 #### [facility] ,Lymphocytes [#/volume] in Blood by Automated countOrdered By: Obie Ramirezrow on 90-96-5829Digibfydssj (Bld) [#/Vol]1.4 10*3/uLNormal1.00-4.8Veterans Health AdministrationComment on above:Order Comment: FASTING.JKWPerformed By: #### ESR, CMP, ADDONUAPLUS, CBC #### [address] #### C3, CH50, C4 #### [facility] ,Lymphocytes/100 leukocytes in Blood by Automated countOrdered By: Obie Hylton on 95-65-1942Msovgbsoeup/100 WBC (Bld)21.1 %Normal.[facility]eter[facility] Health AdministrationComment on above:Order Comment: FASTING.JKWPerformed By: #### ESR, CMP, ADDONUAPLUS, CBC #### [address] #### C3, CH50, C4 #### [facility] ,MCH [Entitic mass] by Automated countOrdered By: Obie Hylton on 02-26-2025 MCH (RBC) [Entitic mass]30.9 noCesusl14.7-34.3FFairfield Medical Center Comment on above:Order Comment: FASTING.JKWPerformed By: #### ESR, CMP, ADDONUAPLUS, CBC #### [place] [address] [place] #### C3, CH50, C4 #### [facility] ,MCHC Auto (RBC) [Mass/Vol]Ordered By: Obie Hylton on 97-24-5663KTOK (RBC) [Mass/Vol]34.1 g/dL32.0-35.0V[facility] Health AdministrationMCV [Entitic volume] by Automated countOrdered By: Obie Hylton on 22-11-5989XOZ (RBC) [Entitic vol]90.4 bWQhmosz81-015BzbbyrsxeVeterans Health AdministrationComment on above:Order Comment: FASTING.JKWPerformed By: #### ESR, CMP, ADDONUAPLUS, CBC #### [place] [address] [place] #### C3, CH50, C4 #### [facility] ,Monocytes [#/volume] in Blood by Automated countOrdered By: Obie Hylton on 62-83-8976Jihntdndw (Bld) [#/Vol]0.6 10*3/uLNormal0.0-0.8[facility] Health AdministrationComment on above:Order Comment: FASTING.JKWPerformed By: #### ESR, CMP, ADDONUAPLUS, CBC #### [place] [address] [place] #### C3, CH50, C4 #### [facility] ,Monocytes/100 leukocytes in Blood by Automated countOrdered By: Obie Hylton on 57-14-3476Pnvspztvc/100 WBC (Bld)9.4 %Normal.[facility] Health AdministrationComment on above:Order Comment: FASTING.JKWPerformed By: #### ESR, CMP, ADDONUAPLUS, CBC #### [place] [address] [place] #### C3, CH50, C4 #### [facility] ,Mucus [Presence] in Urine by AutomatedOrdered By: Obie Hylton on 02-26-2025 Mucus Auto Ql (U)Rare [LPF]V[facility] Health AdministrationNeutrophils [#/volume] in Blood by Automated countOrdered By: Obie Hylton on 02-26-2025 Neutrophils (Bld) [#/Vol]4.6 10*3/uLNormal1.8-7.7FFairfield Medical CenterComment on above:Order Comment: FASTING.JKWPerformed By: #### ESR, CMP, ADDONUAPLUS, CBC #### [facility] [address] [place] [address] [place] #### C3, CH50, C4 #### [facility] ,Neutrophils/100 leukocytes in Blood by Automated countOrdered By: Obie Hylton on 41-49-0396Bsvrqccswlt/100 WBC (Bld)67.9 %Normal.[facility] Health AdministrationComment on above:Order Comment: FASTING.JKWPerformed By: #### ESR, CMP, ADDONUAPLUS, CBC #### [place] [address] [place] #### C3, CH50, C4 #### [facility] ,Nitrite Test strip Ql (U)Ordered By: Obie Hylton on 83-09-4756Ucmkfwb Ql (U) NegativeNegativeVeterans Health AdministrationNo Panel InformationOrdered By: Obie Hylton on 59-04-8528Wedopnkh Creatinine Clearance (ChemN/AFFairfield Medical CenterNucleated erythrocytes [Presence] in Blood by Automated countOrdered By: Obie Hylton on 61-71-8199Lbyrvxuhf RBC Auto Ql (Bld)0.0 /100{WBC}0-0.5FFairfield Medical CenterPlatelet mean volume [Entitic volume] in Blood by Automated countOrdered By: Obie Hylton on 02-26-2025 Platelet mean volume (Bld) [Entitic vol]8.8 fLNormal6.3-10.7FFairfield Medical CenterComment on above:Order Comment: FASTING.JKWPerformed By: #### ESR, CMP, ADDONUAPLUS, CBC #### [place] [address] [place] #### C3, CH50, C4 #### [facility] ,Platelets [#/volume] in Blood by Automated countOrdered By: Obie Hylton on 96-37-8938Rxcziinwa (Bld) [#/Vol]212 10*3/pFGxpfyl894-098GbvnpxwhnVeterans Health AdministrationComment on above:Order Comment: FASTING.JKWPerformed By: #### ESR, CMP, ADDONUAPLUS, CBC #### [place] [address] [place] #### C3, CH50, C4 #### [facility] ,Potassium [Moles/volume] in Serum or PlasmaOrdered By: Obie Hylton on 74-42-4976Zvfhdbbss [Moles/Vol]4.3 mmol/LNormal3.5-5.1FFairfield Medical CenterComment on above:Order Comment: FASTING.JKWPerformed By: #### ESR, CMP, ADDONUAPLUS, CBC #### [place] [address] [place] #### C3, CH50, C4 #### [facility] ,Protein Test strip (U) [Mass/Vol]Ordered By: Obie Hylton on 02-26-2025 Protein (U) [Mass/Vol]NegativeNegativeVeterans Health AdministrationProtein [Mass/volume] in Serum or PlasmaOrdered By: Obie Hylton on 60-86-1432Eygptwm [Mass/Vol]6.9 g/dLNormal6.4-8.9V[facility] Health AdministrationComment on above:Order Comment: FASTING.JKWPerformed By: #### ESR, CMP, ADDONUAPLUS, CBC #### [place] [address] [place] #### C3, CH50, C4 #### [facility] ,Serum globulin measurement by calculation (mass/volume)Ordered By: Obie Hylton on 61-17-7292Ikouofam (S) [Mass/Vol]2.7 g/dLNoPremier Health Miami Valley Hospital SouthComment on above:Order Comment: FASTING.JKWPerformed By: #### ESR, CMP, ADDONUAPLUS, CBC #### [place] [address] [place] #### C3, CH50, C4 #### [facility] ,Serum or plasma albumin/globulin mass ratioOrdered By: Obie Hylton on 18-73-1517Kivwbjy/Globulin [Mass ratio]1.6 {ratio}NormalVeterans Health AdministrationComment on above:Order Comment: FASTING.JKWPerformed By: #### ESR, CMP, ADDONUAPLUS, CBC #### [place] [address] [place] #### C3, CH50, C4 #### [facility] ,Serum or plasma anion gap determinationOrdered By: Obie Hylton on 02-26-2025 Anion gap [Moles/Vol]9.8 mmol/LNormal6.0-15.0[facility] Comment on above:Order Comment: FASTING.JKWPerformed By: #### ESR, CMP, ADDONUAPLUS, CBC #### [address] #### C3, CH50, C4 #### [facility] ,Sodium [Moles/volume] in Serum or PlasmaOrdered By: Obie Hytlon on 45-94-7767Puxcqk [Moles/Vol]140 mmol/FOetjjq737-126VpatnpdhbVeterans Health AdministrationComment on above:Order Comment: FASTING.JKWPerformed By: #### ESR, CMP, ADDONUAPLUS, CBC #### [place] [address] [place] #### C3, CH50, C4 #### [facility] ,Specific gravity Test strip (U) [Rel density]Ordered By: Obie Hylton on 64-31-5025Euhqxklm gravity (U) [Rel density]1.0201.001-1.030V[facility] Health AdministrationUrea nitrogen [Mass/volume] in Serum or PlasmaOrdered By: Obie Hylton on 58-92-3002Eimk nitrogen [Mass/Vol]31 mg/dLHigh7-25V[facility] Health AdministrationComment on above:Order Comment: FASTING.JKWPerformed By: #### ESR, CMP, ADDONUAPLUS, CBC #### [facility] [address] [place] [address] [place] #### C3, CH50, C4 #### [facility] ,Urobilinogen Test strip (U) [Mass/Vol]Ordered By: Obie Ramirezrow on 02-26-2025 Urobilinogen (U) [Mass/Vol]Normal mg/dLNormalVeterans Health AdministrationpH of Urine by Test stripOrdered By: Obie Hylton on 81-62-3626hA (U)6.5 [pH] Normal5.0-9.0V[facility] Health AdministrationComment on above:Order Comment: FASTING.JKW Name Collection Type:: Clean-Voided MidstreamPerformed By: #### ESR, CMP, ADDONUAPLUS, CBC #### [facility] [address] [place] [address] [place] #### C3, CH50, C4 #### [facility] ,XR CHEST AP/PA AND LATon 41-21-1785WK CHEST AP/PA AND LATEXAMINATION: XR CHEST AP/PA AND LAT HISTORY: ORDERING [...] STOKES on SatFeb 05, 2025 10:31:28 AM [facility] CareComment on above:Order Comment: Injury/Trauma or Illness?:Illness/Other How long have you had these symptoms (acute/chronic)?:Acute Reason for exam?:cough History of cancer?:u Surgeries, chemotherapy, or radiation?:u Type of Exam?:Initial Additional signs and symptoms?:congestion x 1 monthXR Chest PA and Lateral and AP lateral-decubituson 02-05-2025 There is no acute cardiopulmonary process. Workstation ID: [id number] RISEXAMINATION: XR CHEST AP/PA AND LAT HISTORY: ORDERING [...] pneumothorax or acute osseous abnormality. The bony structuresare osteopenic. 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 Surgical clips within the right upper abdomen suggesting a cholecystectomy. Мария Sauceda MD - 02/05/2025 EXAMINATION: XR CHEST AP/PA [...] pneumothorax or acute osseous abnormality. The bony structuresare osteopenic. 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 Surgical clips within the right upper abdomen suggesting a cholecystectomy. IMPRESSION: There is no acute cardiopulmonary process. Workstation ID: [id number] [facility] HospitalRadiology Study observation (narrative)[facility] Chest PA and Lateral and AP lateral-decubitusOrdered By: Мария Stokes on 76-20-7455CfbhZqyoqu Work Phone: Urinalysis w/ Microon 82-71-8322Bwnabhcmk, SemiQt,Ur NegativeNormalNEGOhiohealth Marion General HospitalComment on above:Performed By: #### UAMIC #### [facility] [address] [place] [address] [place] [address] Motorcycle Deliverer: Constanza Eugene, UrineNegativeCleveland Clinic [facility] Comment on above:Performed By: #### UAMIC #### [facility] [address] [place] [address] [place] [address] Motorcycle Deliverer: JAUN Eugenelarity ()ClearNormalCLEAROhiohealth Marion General Hospital Comment on above:Performed By: #### UAMIC #### [facility] [address] [place] [address] [place] [id number] Motorcycle Deliverer: JAUN Eugeneolor ()YellowNoalYElyria Memorial Hospital Comment on above:Performed By: #### UAMIC #### [facility] [address] [place] [address] [place] [address] Motorcycle Deliverer: Christian Muir MDEpithelial cells LM Ql (Urine sed)2 TO 4Ovtvgl2-52 [facility] HospitalComment on above:Performed By: #### UAMIC #### [facility] [address] [place] [address] [place] [address] Motorcycle Deliverer: Christian Muir MDGlucose Ql (U)NegativeNormalNEGOhiohealth Marion General HospitalComment on above:Performed By: #### UAMIC #### [facility] [address] [place], [place] [id number] Motorcycle Deliverer: Sang Eugeneones Ql (U)NegativeNormalNEGOhiohealth Marion General HospitalComment on above:Performed By: #### UAMIC #### [facility] [address] [place] [address] Dr. [place], [place] [phone] Motorcycle Deliverer: Christian Muir MDLeukocyte esterase Test strip Ql (U)NegativeNormal NEGMerDay Kimball HospitalComment on above:Performed By: #### UAMIC #### [facility] [address] [place] [address] Dr. [place], [place] [phone] Motorcycle Deliverer: Adriel Eugeneite,UrNegativeC[facility] Clinic [facility] Comment on above:Performed By: #### UAMIC #### [facility] [address] [place] [address] Dr. [place], [place] [phone] Motorcycle Deliverer: ROBERT Eugene,Ur6.9Pkuzpy5.0-9.0[facility] HospitalComment on above:Performed By: #### UAMIC #### [facility] [address] [place] [address] [place] [address] Motorcycle Deliverer: Robinson Eugene Ql (U)NegativeNormalNEGOhiohealth Marion General HospitalComment on above:Performed By: #### UAMIC #### [facility] [address] [place] [address] [place] [address] Motorcycle Deliverer: Alex Eugene. [place],Ur1.705Wjuuzd8.010-1.020Ohio[facility] HospitalComment on above:Performed By: #### UAMIC #### [facility] [address] [place] [address] Dr. [place], [place] [phone] Motorcycle Deliverer: Deandre Eugene RBC's0 TO 0Gkdefw0-7OrvegRiverside Methodist Hospital Comment on above:Performed By: #### UAMIC #### [facility] [address] [place] [address] Dr. [place], [place] [phone] Motorcycle Deliverer: Christian Muir MDUrine WBC's0 TO 1Ybnlml9-2KcoiyOhiohealth Marion General Hospital Comment on above:Performed By: #### UAMIC #### [facility] [address] [place] [address] Motorcycle Deliverer: Christian Muir MDUrobilinogen,UrNormalNormal0.0-1.0[facility] HospitalComment on above:Performed By: #### UAMIC #### [facility] [address] [place] [address] Motorcycle Deliverer: Christian Muir MDUrinalysis with Microscopicon 21-76-0790Awbzwsgdo Ql (U)NegativeNEGATIVEBon Secours Mercy HealthClarity (U)ClearClearBon Secours Mercy HealthColor (U)YellowYellowBon Secours Mercy HealthEpithelial cells LM.HPF (Urine sed) [#/Area]2 TO 5Bon [facility] HealthGlucose Test strip (U) [Mass/Vol]NegativeNEGATIVE mg/dLBon Secours Mercy HealthHemoglobin Auto test strip Ql (U)NegativeNEGATIVEBon Secours Mercy HealthKetones (U) [Mass/Vol] NegativeNEGATIVE mg/dLBon Secours Mercy HealthLeukocyte esterase Test strip Ql (U)NegativeNEGATIVEBon Secours Mercy HealthNitrite Ql (U)NegativeNEGATIVEBon Secours Mercy HealthpH (U)6 [pH]5.0 - 9.0[facility] HealthProtein (U) [Mass/Vol]NegativeNEGATIVE mg/dLBon Secours Mercy HealthRBC LM.HPF (Urine sed) [#/Area]0 TO 2[facility] HealthSpecific gravity (U) [Rel density]1.02 1.010 - 1.020Bon [facility] Mercy HealthUrobilinogen Qn (U)Normal0.0 - 1.0 EU/dLBon Secours Mercy HealthWBC LM.HPF (Urine sed) [#/Area]0 TO 2Bon [facility] Mercy HealthBon Secours Mercy HealthAppearance of UrineOrdered By: Nuvia Sanchez on 68-12-2957Qnarcjvgxo (U)Urine appearanceCleWestern Reserve Hospital Bacteria [Presence] in Urine by AutomatedOrdered By: Nuvia Sanchez on 69-62-0300Torvpwaj Auto Ql (U)Bacteria [Presence] in Urine by AutomatedNone Seen Veterans Health AdministrationBilirubin Test strip Ql (U)Ordered By: Nuvia Sanchez on 40-49-5025Hxwjdbwlc Ql (U)Bilirubin.total [Presence] in Urine by Test stripNegativeVeterans Health AdministrationColor Auto (U)Ordered By: Nuvia Sanchez on 48-81-9267Yqesn (U)Color of Urine by AutoYellowVeterans Health AdministrationDipstick and Microscopicon 22-73-4115Cpbcmrawyu (U)Clear NormalClearThe [facility] Physician GroupComment on above:Order Comment: FASTING.JKW Name Collection Type:: Clean-Voided MidstreamPerformed By: #### ESR, CMP, ADDONUAPLUS, CBC #### [facility] [address] [place] [address] [place] #### C3, CH50, C4 #### [facility] ,Bacteria,UrineRareNormalNone SeenSt. Mary'S Medical Center Physician GroupComment on above: Order Comment: FASTING.JKW Name Collection Type:: Clean-Voided MidstreamPerformed By: #### ESR, CMP, ADDONUAPLUS, CBC #### [place] [address] [place] #### C3, CH50, C4 #### [facility] ,Bilirubin,UrineNegativeNormalNegativeThe [facility] Physician GroupComment on above:Order Comment: FASTING.JKW Name Collection Type:: Clean-Voided MidstreamPerformed By: #### ESR, CMP, ADDONUAPLUS, CBC #### [facility] [address] [place] [address] [place] #### C3, CH50, C4 #### [facility] ,Color (U)YellowNormalYellowThe [facility] Physician GroupComment on above:Order Comment: FASTING.JKW Name Collection Type:: Clean-Voided MidstreamPerformed By: #### ESR, CMP, ADDONUAPLUS, CBC #### [place] [address] [place] #### C3, CH50, C4 #### [facility] ,Glucose Ql (U)NormalNormalNormalThe [facility] Physician GroupComment on above: Order Comment: FASTING.JKW Name Collection Type:: Clean-Voided MidstreamPerformed By: #### ESR, CMP, ADDONUAPLUS, CBC #### [place] [address] [place] #### C3, CH50, C4 #### [facility] ,Hyaline Casts,UrineNoneNormal0-8The [facility] Physician GroupComment on above: Order Comment: FASTING.JKW Name Collection Type:: Clean-Voided MidstreamPerformed By: #### ESR, CMP, ADDONUAPLUS, CBC #### [address] #### C3, CH50, C4 #### [facility] ,Ketones Ql (U)NegativeNormalNegMayo Clinic Florida Physician GroupComment on above:Order Comment: FASTING.JKW Name Collection Type:: Clean-Voided MidstreamPerformed By: #### ESR, CMP, ADDONUAPLUS, CBC #### [place] [address] [place] #### C3, CH50, C4 #### [facility] ,Leukocyte esterase Test strip Ql (U)NegativeNormalNegativeSt. Mary'[facility] Center Physician GroupComment on above:Order Comment: FASTING.JKW Name Collection Type:: Clean-Voided MidstreamPerformed By: #### ESR, CMP, ADDONUAPLUS, CBC #### [place] [address] [place] #### C3, CH50, C4 #### [facility] ,Mucus,UrineRareNormalThe [facility] Physician GroupComment on above:Order Comment: FASTING.JKW Name Collection Type:: Clean-Voided MidstreamResult Comment: PERFORMED BY: [place] [address] PATHOLOGIST PERFECT BINDER FEEDER OFFBEARER DOMINICK MONTIEL M.D.Performed By: #### ESR, CMP, ADDONUAPLUS, CBC #### [place] [address] [place] #### C3, CH50, C4 #### [facility] ,Nitrite,UrineNegativeNormalNegativeThe [facility] Physician GroupComment on above:Order Comment: FASTING.JKW Name Collection Type:: Clean-Voided MidstreamPerformed By: #### ESR, CMP, ADDONUAPLUS, CBC #### [place] [address] [place] #### C3, CH50, C4 #### [facility] ,Occult Blood,UrineNegativeNormalNegativeThe [facility] Physician GroupComment on above:Order Comment: FASTING.JKW Name Collection Type:: Clean-Voided MidstreamPerformed By: #### ESR, CMP, ADDONUAPLUS, CBC #### [address] #### C3, CH50, C4 #### [facility] ,pH (U)5.0 [pH]Normal5.0-9.0The [facility] Physician GroupComment on above:Order Comment: FASTING.JKW Name Collection Type:: Clean-Voided MidstreamPerformed By: #### ESR, CMP, ADDONUAPLUS, CBC #### [place] [address] [place] #### C3, CH50, C4 #### [facility] ,Protein,UrineNegativeNormalNegativeThe [facility] Physician GroupComment on above:Order Comment: FASTING.JKW Name Collection Type:: Clean-Voided MidstreamPerformed By: #### ESR, CMP, ADDONUAPLUS, CBC #### [place] [address] [place] #### C3, CH50, C4 #### [facility] ,RBC,Hgxdn2-5Xswvkc6-2Obg [facility] Physician GroupComment on above:Order Comment: FASTING.JKW Name Collection Type:: Clean-Voided MidstreamPerformed By: #### ESR, CMP, ADDONUAPLUS, CBC #### [address] #### C3, CH50, C4 #### [facility] ,Specificy [place],Urine1.696Vjwdrd5.001-1.030The [facility] Comment on above:Order Comment: FASTING.JKW Name Collection Type:: Clean-Voided MidstreamPerformed By: #### ESR, CMP, ADDONUAPLUS, CBC #### [address] #### C3, CH50, C4 #### [facility] ,Squamous Epithelial Cell,Xttqs4-5Oztiks7-2Qpd [facility] Physician GroupComment on above:Order Comment: FASTING.JKW Name Collection Type:: Clean-Voided MidstreamPerformed By: #### ESR, CMP, ADDONUAPLUS, CBC #### [address] #### C3, CH50, C4 #### [facility] ,Uric Acid Crystals,Urine1+NormalThe [facility] Physician GroupComment on above: Order Comment: FASTING.JKW Name Collection Type:: Clean-Voided MidstreamPerformed By: #### ESR, CMP, ADDONUAPLUS, CBC #### [place] [address] [place] #### C3, CH50, C4 #### [facility] ,Urobilinogen,UrineNormalNormalNormalThe [facility] Physician GroupComment on above:Order Comment: FASTING.JKW Name Collection Type:: Clean-Voided MidstreamPerformed By: #### ESR, CMP, ADDONUAPLUS, CBC #### [facility] [address] [place] [address] [place] #### C3, CH50, C4 #### [facility] ,WBC,Owsxc6-8Uewgsh2-8Aqv [facility] Physician GroupComment on above:Order Comment: FASTING.JKW Name Collection Type:: Clean-Voided MidstreamPerformed By: #### ESR, CMP, ADDONUAPLUS, CBC #### [facility] [address] [place] [address] [place] #### C3, CH50, C4 #### [facility] ,Epithelial cells.squamous [#/area] in Urine sediment by Automated countOrdered By: Nuvia Sanchez on 22-78-0685Jpevftnjzj cells.squamous Auto (Urine sed) [#/Area]Epithelial cells.squamous [#/area] in Urine sediment by Automated count 0-2FFairfield Medical CenterErythrocytes [#/area] in Urine sediment by Automated countOrdered By: Nuvia Sanchez on 62-13-8655RUJ Auto (Urine sed) [#/Area]Erythrocytes [#/area] in Urine sediment by Automated count04FFairfield Medical CenterGlucose [Mass/volume] in Urine by Test stripOrdered By: Nuvia Sanchez on 55-20-3624Ffhdhlz Test strip (U) [Mass/Vol]Glucose [Mass/volume] in Urine by Test stripNormalVeterans Health Administration Hemoglobin Test strip Ql (U)Ordered By: Nuvia Sanchez on 27-01-4296Sguoqqwacd Ql (U)Hemoglobin [Presence] in Urine by Test stripNegativeVeterans Health AdministrationHyaline casts [#/area] in Urine sediment by Automated countOrdered By: Nuvia Sanchez on 21-53-7049Rmycdgz casts Auto (Urine sed) [#/Area]Hyaline casts [#/area] in Urine sediment by Automated count0-8V[facility] Health AdministrationKetones Test strip Ql (U)Ordered By: Nuvia Sanchez on 17-44-6638Jtmzjtr Ql (U)Ketones [Presence] in Urine by Test stripNegGrant HospitalLeukocyte esterase [Presence] in Urine by Test stripOrdered By: Nuvia Sanchez on 80-60-6633Mrjxqyula esterase Test strip Ql (U)Leukocyte esterase [Presence] in Urine by Test stripNegGrant HospitalLeukocytes [#/area] in Urine sediment by Automated countOrdered By: Nuvia Sanchez on 74-62-8599SWD Auto (Urine sed) [#/Area]Leukocytes [#/area] in Urine sediment by Automated count0-4FFairfield Medical CenterMucus [Presence] in Urine by AutomatedOrdered By: Nuvia Sanchez on 87-87-9770Zsmjj Auto Ql (U) Mucus [Presence] in Urine by AutomatedVeterans Health AdministrationNitrite Test strip Ql (U)Ordered By: Nuvia Sanchez on 01-01-8025Oduoqyd Ql (U)Nitrite [Presence] in Urine by Test stripNegGrant Hospital Protein Test strip (U) [Mass/Vol]Ordered By: Nuvia Sanchez on 44-90-4851Tvivezl (U) [Mass/Vol]Protein [Mass/volume] in Urine by Test stripNegSelect Medical TriHealth Rehabilitation Hospitalpecific gravity Test strip (U) [Rel density]Ordered By: Nuvia Sanchez on 65-12-4365Npjmhyks gravity (U) [Rel density]Specific gravity of Urine by Test strip1.001-1.030V[facility] Health AdministrationUrate crystals [Presence] in Urine sediment by Computer assisted methodOrdered By: Nuvia Sanchez on 01-86-7763Zvwjt crystals [Presence] in Urine sediment by Computer assisted methodUrate crystals [Presence] in Urine sediment by Computer assisted methodVeterans Health AdministrationUrobilinogen Test strip (U) [Mass/Vol] Ordered By: Nuvia Sanchez on 47-72-0580Yrrtrztdfpus (U) [Mass/Vol]Urobilinogen [Mass/volume] in Urine by Test stripNormParkview Health Bryan HospitalpH Test strip (U)Ordered By: Nuvia Sanchez on 56-89-9877hH (U)pH of Urine by Test strip5.0-9.0Veterans Health AdministrationXR CHEST (2 VW)on 23-12-9933AH CHEST (2 VW)EXAM: XR CHEST (2 VW) HISTORY: Essential hypertension COMPARISON: 08/20/2023 TECHNIQUE: 2 views FINDINGS: The heart and mediastinum are unremarkable. Lungs are clear. No focal infiltrates are seen. No effusions are noted. IMPRESSION: No acute cardiopulmonary pathology. Interpreted by: Ora Macias MD Signed by: Ora Macias MD 08/30/24 Final resultNormalDayton Osteopathic HospitalCult,Urineon 75-60-1277Eigc,Urine Specimen Description .CLEAN CATCH URINE Special Requests [...] <=4 SUSCEPTIBLE Tobramycin <=1 SUSCEPTIBLE Trimethoprim/Sulfa <=20 SUSCEPTIBLESusceptibleDayton Osteopathic HospitalComment on above:Performed By: #### FLUABA #### [facility] [address] [place] [address] Motorcycle Deliverer: Christian Muir [facility] with Auto Differentialon 88-81-4711Magxmzhuf (Bld) [#/Vol]0.01 10*3/uLBon Secours Parkview HealthBasophils/100 WBC (Bld)0 %0 - 2 %[facility] HealthEosinophils (Bld) [#/Vol]0.09 10*3/uLBon Secours Parkview HealthEosinophils/100 WBC (Bld)2 %0 - 5 %[facility] Parkview HealthErythrocyte distribution width (RBC) [Ratio]13.8 %12.1 - 15.2 %[facility] Hematocrit (Bld) [Volume fraction]37.7 %36.0 - 46.0 %[facility] Hemoglobin (Bld) [Mass/Vol]12.4 g/dL12.0 - 16.0 g/dLBon [facility] Immature granulocytes (Bld) [#/Vol]0.06 10*3/uLBon [facility]rb[facility] HospitalImmature granulocytes/100 WBC (Bld)1 %0 - 5 %[facility] HospitalInterpretation and review of laboratory resultsAbnormalBon [facility] HospitalLymphocytes/100 WBC (Bld)28 %15 - 40 %[facility] HospitalLymphocytes/100 WBC (Bld)1.39 %[facility] CampusH (RBC) [Entitic mass]31.2 pg26.0 - 34.0 pgBon [facility] HospitalHC (RBC) [Mass/Vol]32.9 g/dL31.0 - 37.0 g/dLBon [facility] HospitalV (RBC) [Entitic vol]95.0 fL80.0 - 100.0 fLInova Women'S Hospital Monocytes/100 WBC (Bld)10 %High4 - 8 %[facility] HospitalMonocytes/100 WBC (Bld)0.49 %[facility]S HospitalNeutrophils/100 WBC (Bld)59 %47 - 75 %[facility] HospitalPlatelet mean volume (Bld) [Entitic vol]9.5 fL6.0 - 12.0 fL [facility] HospitalPlatelets (Bld) [#/Vol]213 10*3/uLBon [facility]ana HospitalRBC (Bld) [#/Vol]3.97 10*6/uLLow4.00 - 5.20 m/uLInova Women'S Hospital Segmented neutrophils/100 WBC (Bld)2.99 %[facility] HospitalWBC other (Bld) [#/Vol]5.0Bon [facility] HospitalCBC with Diffon 57-92-5144Eqp. Basophil0.01 k/uLNormal0.00-0.20Day[facility] Osteopathic HospitalComment on above:Performed By: #### COVRB #### [facility] [address] [place] [address] Motorcycle Deliverer: MDAbs. JabierImm.Granulocyte0.06 k/uLNormal0.00-0.30[facility] Hospitalment on above:Performed By: #### COVRB #### [facility] [address] [place] [address] Motorcycle Deliverer: Tony Eugene.Neutrophil (Seg)2.99 k/uLNormal2.5-7.0[facility] HospitalComment on above:Performed By: #### COVRB #### [facility] [address] [place] [id number] Motorcycle Deliverer: Christian Muir MDBasophils/100 WBC (Bld)0 %Normal0-2MTrumbull Memorial HospitalComment on above:Performed By: #### COVRB #### [facility] [address] [place] [id number] Motorcycle Deliverer: Christian Muir MDEosinophils (Bld) [#/Vol]0.09 10*3/uLNormal 0.00-0.40[facility] HospitalComment on above:Performed By: #### COVRB #### [facility] [address] [place] [id number] Motorcycle Deliverer: FRANCISCO Eugeneosinophils/100 WBC (Bld)2 %Normal0-5[facility] HospitalCombronson lakeview hospital on above:Performed By: #### COVRB #### [facility] [address] [place] [id number] Motorcycle Deliverer: Christian Muir MDErythrocyte distribution width (RBC) [Ratio]13.8 % Inmatg75.1-15.2MTrumbull Memorial HospitalComment on above:Performed By: #### COVRB #### [facility] [address] [place] [id number] Motorcycle Deliverer: Christian Muir MDHematocrit (Bld) [Volume fraction]37.7 %Normal 36.0-46.0[facility] on above:Performed By: #### COVRB #### [facility] [address] [place] [id number] Motorcycle Deliverer: Chrisitan Muir MDHemoglobin (Bld) [Mass/Vol]12.4 g/dLNormal 12.0-16.0[facility] Hospitalment on above:Performed By: #### COVRB #### [facility] [address] [place] [address] Motorcycle Deliverer: Christian Muir MDImmature granulocytes/100 WBC (Bld)1 %Normal0-5 [facility] on above:Performed By: #### COVRB #### [facility] [address] [place] [id number] Motorcycle Deliverer: Christian Muir MDLymphocytes (Bld) [#/Vol]1.39 10*3/uLNormal 1.00-4.80[facility] on above:Performed By: #### COVRB #### [facility] [address] [place] [id number] Motorcycle Deliverer: Marilyn Eugenemphocytes/100 WBC (Bld)28 %Nbsdza44-89WgfadSouthwest General Health Center on above:Performed By: #### COVRB #### [facility] [address] [place] [id number] Motorcycle Deliverer: KATIE EugeneCH (RBC) [Entitic mass]31.2 uhNxnerj61.0-34.0 [facility] on above:Performed By: #### COVRB #### [facility] [address] [place] [address] Motorcycle Deliverer: KATIE EugeneCHC (RBC) [Mass/Vol]32.9 g/kWCyxplk15.0-37.0[facility] HospitalCombronson lakeview hospital on above:Performed By: #### COVRB #### [facility] [address] [place], [place] [id number] Motorcycle Deliverer: KATIE EugeneCV (RBC) [Entitic vol]95.0 nUVnwzui11.0-100.0 [facility] on above:Performed By: #### COVRB #### [facility] [address] [place], [place] [id number] Motorcycle Deliverer: KATIE Eugeneonocytes (Bld) [#/Vol]0.49 10*3/uLNormal0.00-1.00 [facility] on above:Performed By: #### COVRB #### [facility] [address] [place] [address] Motorcycle Deliverer: KATIE Eugeneonocytes/100 WBC (Bld)10 %High4-8[facility] HospitalCombronson lakeview hospital on above:Performed By: #### COVRB #### [facility] [address] [place], [place] [id number] Motorcycle Deliverer: Christian Muir MDNeutrophil (Seg)59 %Ckwxjw24-86CptyuDayton Osteopathic HospitalCombronson lakeview hospital on above:Performed By: #### COVRB #### [facility] [address] [place] [address] Motorcycle Deliverer: ROBERT Eugenelatelet mean volume (Bld) [Entitic vol]9.5 fL Normal6.0-12.0[facility] HospitalCombronson lakeview hospital on above:Performed By: #### COVRB #### [facility] [address] [place], [place] [id number] Motorcycle Deliverer: ROBERT Eugenelatelets (Bld) [#/Vol]213 10*3/jYUhlrjl970-126 [facility] HospitalComment on above:Performed By: #### COVRB #### [facility] [address] [place], [place] [id number] Motorcycle Deliverer: HERMELINDA Eugene (Bld) [#/Vol]3.97 10*6/uLLow4.00-5.20[facility] HospitalComment on above:Performed By: #### COVRB #### [facility] [address] [place] [address] Motorcycle Deliverer: ANSON Eugene (d) [#/Vol]5.0 10*3/uLNormal3.5-11.0[facility] Hospitalment on above:Performed By: #### COVRB #### [facility] [address] [place] [id number] Motorcycle Deliverer: JAUN Eugenegunnison valley hospital Metabolic Profon 49-90-4109Kwpgmnu [Mass/Vol] 4.0 g/dLNormal3.5-5.2MTrumbull Memorial HospitalCombronson lakeview hospital on above:Performed By: #### COVRB #### [facility] [address] [place], [place] [id number] Motorcycle Deliverer: Christian Muir MDAlbumin/Glob Ratio1.2Ndeeuh5.0-2.5[facility] on above:Performed By: #### COVRB #### [facility] [address] [place], [place] [id number] Motorcycle Deliverer: Tobi Eugeneline Phos58 U/PPgwdkx39-104EgwlySouthwest General Health Center on above:Performed By: #### COVRB #### [facility] [address] [place], [place] [id number] Motorcycle Deliverer: Christian Muir MDALT [Catalytic activity/Vol]11 U/LNormal5-33Mercy Tani HospitalComment on above:Performed By: #### COVRB #### [facility] [address] [place] [address] Motorcycle Deliverer: Christian Muir MDAnion gap [Moles/Vol]11 mmol/LNormal9-17[facility] HospitalComment on above:Performed By: #### COVRB #### [facility] [address] [place] [phone] Motorcycle Deliverer: Christian Muir MDAST [Catalytic activity/Vol]17 U/LNormal<32[facility] HospitalCombronson lakeview hospital on above:Performed By: #### COVRB #### [facility] [address] [place] [address] Motorcycle Deliverer: Christian Muir MDBilirubin [Mass/Vol]0.5 mg/dLNormal0.3-1.2MTrumbull Memorial HospitalCombronson lakeview hospital on above:Performed By: #### COVRB #### [facility] [address] [place], [place] [phone] Motorcycle Deliverer: Christian Muir MDCalcium [Mass/Vol]9.4 mg/dLNormal8.6-10.4[facility] on above:Performed By: #### COVRB #### [facility] [address] [place] [address] Motorcycle Deliverer: JAUN Eugenehloride [Moles/Vol]105 mmol/ZYxenpt39-204VoytwDayton Osteopathic HospitalCombronson lakeview hospital on above:Performed By: #### COVRB #### [facility] [address] [place] [address] Motorcycle Deliverer: Christian Muir MDCO2 [Moles/Vol]26 mmol/MRmzlha12-87BzsqmSouthwest General Health Center on above:Performed By: #### COVRB #### [facility] [address] [place], [place] [phone] Motorcycle Deliverer: JAUN Eugenereatinine [Mass/Vol]1.3 mg/dLHigh0.5-0.9[facility] HospitalComment on above:Performed By: #### COVRB #### [facility] [address] [place], [place] [phone] Motorcycle Deliverer: Christian Muir MDGFR/1.73 sq M.predicted among non-blacks MDRD (S/P/Bld) [Vol rate/Area]42 mL/min/{1.73_m2}Low>60MerUpstate University HospitalComment on above:Result Comment: These results are not intended for [...] or following therapy that affects renal tubular secretion.Performed By: #### COVRB #### [facility] [address] [place], [place] [address] Motorcycle Deliverer: Christian Muir MDGlucose [Mass/Vol]96 mg/mFDmpdmn15-94BagekTrumbull Memorial HospitalComment on above:Performed By: #### COVRB #### [facility] [address] [place], [place] [phone] Motorcycle Deliverer: ROBERT Eugeneotassium [Moles/Vol]4.2 mmol/LNormal3.7-5.3Mdiley ridge medical centery [facility] Mississippi Medical CenterComment on above:Performed By: #### COVRB #### [facility] [address] [place], [place] [phone] Motorcycle Deliverer: Christian Muir MDProtein [Mass/Vol]6.5 g/dLNormal6.4-8.3Mdiley ridge medical centery [facility] Medical CenterComment on above:Performed By: #### COVRB #### [facility] [address] [place] [address] Motorcycle Deliverer: ROSALIO Eugeneodium [Moles/Vol]142 mmol/QCmjodt538-102YxcilDayton Osteopathic HospitalCombronson lakeview hospital on above:Performed By: #### COVRB #### [facility] [address] [place], [place] [phone] Motorcycle Deliverer: Christian Muir MDUrea nitrogen [Mass/Vol]28 mg/dLHigh8-23Day[facility] Osteopathic HospitalComment on above:Performed By: #### COVRB #### [facility] [address] [place] [address] Motorcycle Deliverer: JAUN Eugeneomprehensive Metabolic Panelon 97-08-1167Xyeehul [Mass/Vol]4.0 g/dL3.5 - 5.2 g/dLBon [facility] HealthAlbumin/Globulin [Mass ratio]1.6 {ratio}1.0 - 2.5[facility] Centery HealthALP [Catalytic activity/Vol]58 U/L35 - 104 U/LBon Secours [facility] Medical Centery HealthALT [Catalytic activity/Vol]11 U/L5 - 33 U/LBon Secours [facility] Centery HealthAnion gap [Moles/Vol]11 mmol/L9 - 17 mmol/LBon Secours [facility] Centery HealthAST [Catalytic activity/Vol]17 U/LNINF - 32 U/LBon Secours [facility] Centery HealthBilirubin [Mass/Vol]0.5 mg/dL0.3 - 1.2 mg/dLBon [facility] Health Calcium [Mass/Vol]9.4 mg/dL8.6 - 10.4 mg/dLBon Secours [facility] Centery HealthChloride [Moles/Vol]105 mmol/L98 - 107 mmol/LBon Secours [facility] Centery HealthCO2 [Moles/Vol]26 mmol/L20 - 31 mmol/LBon Secours [facility] Centery HealthCreatinine [Mass/Vol]1.3 mg/dLHigh 0.5 - 0.9 mg/dLBon Secours Trumb[facility] Centery HealthEst, Glom Filt Gnuc58Oya- PINFBon [facility] HospitalCombronson lakeview hospital on above: These results are not intended [...] therapy that affects renal tubular secretion. Glucose [Mass/Vol]96 mg/dL70 - 99 mg/dLBon TeeBeeDeeInterpretation and review of laboratory resultsAbnormalBon TeeBeeDeePotassium [Moles/Vol]4.2 mmol/L3.7 - 5.3 mmol/LBon TeeBeeDeeProtein [Mass/Vol] 6.5 g/dL6.4 - 8.3 g/dLBon TeeBeeDeeSodium [Moles/Vol]142 mmol/L135 - 144 mmol/LBon TeeBeeDeeUrea nitrogen [Mass/Vol]28 mg/dLHigh8 - 23 mg/dLBon TeeBeeDeeLipid Panelon 49-25-0184Eqrcscvichb [Mass/Vol]145 mg/dL0 - 199 mg/dLBon TeeBeeDeeComment on above: Cholesterol Guidelines: <200 Desirable 200-240 Borderline >240 Undesirable Cholesterol in HDL [Mass/Vol]52 mg/dL40 - PINF mg/dLBon [facility] Comment on above: HDL Guidelines: <40 Undesirable 40-59 Borderline >59 Desirable Cholesterol in LDL [Mass/Vol]74 mg/dL0 - 100 mg/dLBon [facility] Comment on above: LDL Guidelines: <100 Desirable 100-129 Near to/above Desirable 130-159 Borderline >159 Undesirable Direct (measured) LDL and calculated LDL are not interchangeable tests. Cholesterol in VLDL [Mass/Vol]19 mg/dL1 - 30 mg/dLBon [facility] Cholesterol.total/Cholesterol in HDL [Mass ratio]2.8 {ratio}Bon TeeBeeDeeTriglyceride [Mass/Vol]94 mg/dLNINF - 150 mg/dLBon [facility] Comment on above: Triglyceride Guidelines: <150 Desirable 150-199 Borderline 200-499 High >499 Very high Based on AHA Guidelines for fasting triglyceride, March 2012. Lipid Profileon 96-24-4159Geflssopwbq [Mass/Vol]145 mg/dLNormal0-199Merseverino Monsivais HospitalComment on above:Result Comment: Cholesterol Guidelines: <200 Desirable 200-240 Borderline >240 UndesirablePerformed By: #### COVRB #### [facility] [address] [place] [address] Motorcycle Deliverer: JAUN Eugeneholesterol in HDL [Mass/Vol]52 mg/dLNormal>40 [facility] on above:Result Comment: HDL Guidelines: <40 Undesirable 40-59 Borderline >59 DesirablePerformed By: #### COVRB #### [facility] [address] [place] [address] Motorcycle Deliverer: JAUN Eugeneholesterol in LDL [Mass/Vol]74 mg/dLNormal0-100 [facility] on above:Result Comment: LDL Guidelines: <100 Desirable 100-129 Near to/above Desirable 130-159 Borderline >159 Undesirable Direct (measured) LDL and calculated LDL are not interchangeable tests.Performed By: #### COVRB #### [facility] [address] [place] [address] Motorcycle Deliverer: JAUN Eugeneholesterol in VLDL [Mass/Vol]19 mg/dLNormal1-30 [facility] on above:Performed By: #### COVRB #### [facility] [address] [place] [address] Motorcycle Deliverer: Sun Eugene.total/Cholesterol in HDL [Mass ratio] 2.8 {ratio}NormalDayton Osteopathic HospitalCombronson lakeview hospital on above:Performed By: #### COVRB #### [facility] [address] [place] [address] Motorcycle Deliverer: Christian Muir MDTriglyceride [Mass/Vol]94 mg/dLNormal<150[facility] on above:Result Comment: Triglyceride Guidelines: <150 Desirable 150-199 Borderline 200-499 High >499 Very high Based on AHA Guidelines for fasting triglyceride, March 2012.Performed By: #### COVRB #### [facility] [address] [place] [address] Motorcycle Deliverer: Silke Eugenegnesiumon 92-61-4533Vdgidgszj [Mass/Vol]2.2 mg/dL1.6 - 2.6 mg/dLBon [facility] HospitalMagnesium [Mass/Vol]2.2 mg/dLNormal 1.6-2.6MercCommunity Hospital of San BernardinoComment on above:Performed By: #### COVRB #### [facility] [address] [place] [address] Motorcycle Deliverer: Tova Eugene Panel Informationon 10-92-5047Zti [facility] HospitalBon [facility] HospitalTS w/reflex to FT4on 67-25-9607Sherpvz Stim. Horm.2.59 uIU/mLNormal0.27-4.20[facility] HospitalComment on above:Performed By: #### COVRB #### [facility] [address] [place] [address] Motorcycle Deliverer: GENEVIEVE Eugene with Reflexon 44-34-5057FNK Qn2.59 m[IU]/LBon [facility]rbana HospitalVitamin D 25 Hydroxyon 329824-mhjoqohirgfbbp D3 [Mass/Vol]89.9 ng/mL30.0 - 100.0 ng/mLInova Women'S HospitalComment on above: Reference Range: Vitamin D status Range Deficiency <20 ng/mL Mild Deficiency 20-30 ng/mL Sufficiency 30-100 ng/mL Toxicity >100 ng/mL Vitamin D 25 OHon 23-76-6065Qrchrrp D 25 OH89.9 ng/tFRegefj47.0-100.0[facility] HospitalComment on above:Result Comment: Reference Range: Vitamin D status Range Deficiency <20 ng/mL Mild Deficiency 20-30 ng/mL Sufficiency 30-100 ng/mL Toxicity >100 ng/mLPerformed By: #### COVRB #### [facility] [address] [place] [address] Motorcycle Deliverer: Christian Miur MDAlanine aminotransferase [Enzymatic activity/volume] in Serum or PlasmaOrdered By: Obie Hylton on 54-08-1743OKM [Catalytic activity/Vol]Alanine aminotransferase [Enzymatic activity/volume] in Serum or Plasma7-52[facility] Health AdministrationAlbumin [Mass/volume] in Serum or Plasma by Bromocresol green (BCG) dye binding methoOrdered By: Obie Hylton on 45-83-0546Tmaihdq BCG dye [Mass/Vol]Albumin [Mass/volume] in Serum or Plasma by Bromocresol green (BCG) dye binding metho3.5-5.7FFairfield Medical CenterAlkaline phosphatase [Enzymatic activity/volume] in Serum or PlasmaOrdered By: Obie Hylton on 28-32-7155HLM [Catalytic activity/Vol] Alkaline phosphatase [Enzymatic activity/volume] in Serum or Eeyrnj37-108 [facility] AdministrationAppearance of UrineOrdered By: Obie Hylton on 99-52-7684Tdwppivjzc (U)Urine appearanceCleWestern Reserve HospitalAspartate aminotransferase [Enzymatic activity/volume] in Serum or Plasma Ordered By: Obie Hylton on 81-97-8430QTL [Catalytic activity/Vol]Aspartate aminotransferase [Enzymatic activity/volume] in Serum or Fwyhcq69-22NvfwfkbyzVeterans Health AdministrationBacteria [Presence] in Urine by AutomatedOrdered By: Obie Hylton on 58-61-1498Jpbitbmk Auto Ql (U)Bacteria [Presence] in Urine by AutomatedNone SeenVeterans Health AdministrationBasophils Auto (Bld) [#/Vol] Ordered By: Obie Hylton on 74-08-1866Sqeroofvl (Bld) [#/Vol]Automated basophil count0.0-0.2FFairfield Medical CenterBasophils/100 WBC Auto (Bld)Ordered By: Obie Hylton on 03-53-7898Fwegqqgpa/100 WBC (Bld)Automated basophil %.V[facility] Health AdministrationBilirubin Test strip Ql (U)Ordered By: Obie Hylton on 34-95-5106Otnhewxqe Ql (U)Bilirubin.total [Presence] in Urine by Test stripNegativeVeterans Health AdministrationBilirubin.total [Mass/volume] in Serum or PlasmaOrdered By: Obie Hylton on 08-11-2024 Bilirubin [Mass/Vol]Bilirubin.total [Mass/volume] in Serum or Plasma0.3-1.0 [facility] AdministrationCalcium [Mass/volume] in Serum or PlasmaOrdered By: Obie Hylton on 81-64-3902Ltbxfrx [Mass/Vol]Calcium [Mass/volume] in Serum or Plasma8.6-10.3FFairfield Medical CenterCarbon dioxide, total [Moles/volume] in Serum or PlasmaOrdered By: Obie Hylton on 47-06-4928SE7 [Moles/Vol]Carbon dioxide, total [Moles/volume] in Serum or Wzwhok27.0-31.0 [facility] AdministrationChloride [Moles/volume] in Serum or Plasma Ordered By: Obie Hylton on 52-38-7338Tdthkvew [Moles/Vol]Chloride [Moles/volume] in Serum or Dogfqe20-054NshfmwewxVeterans Health AdministrationColor Auto (U)Ordered By: Obie Hylton on 11-51-4287Viwtr (U)Color of Urine by Auto YellowVeterans Health AdministrationComplement C3on 65-72-6712Uqcychmjep C3 130 mg/qXOmmhwc44-219Jjh [facility] Physician GroupComment on above:Order Comment: FASTING.JKW Name Collection Type:: Clean-Voided MidstreamPerformed By: #### ESR, CMP, ADDONUAPLUS, CBC #### [address] #### C3, CH50, C4 #### [facility] ,Complement C4on 83-92-5255Nlkzwejmlk C423 mg/pZKljgsc12-03Ctf [facility] Physician GroupComment on above:Order Comment: FASTING.JKW Name Collection Type:: Clean-Voided MidstreamResult Comment: Performed at: - [facility] [id number] Motorcycle Deliverer: Usman Draper PhD, Phone: [phone] PERFORMED BY: [address] [address] PATHOLOGIST PERFECT BINDER FEEDER OFFBEARER DOMINICK MONTIEL M.D.Performed By: #### ESR, CMP, ADDONUAPLUS, CBC #### [address] #### C3, CH50, C4 #### [facility] ,Complement Total (CH50)on 65-92-3810Ygezijnpoj Total (CH50)54Normal>41The [facility] Physician GroupComment on above:Order Comment: FASTING.JKW Name Collection Type:: Clean-Voided MidstreamResult Comment: Age Male Female 1 - 30 [...] of range values. Performed at: - [facility] [place] [id number] Motorcycle Deliverer: Usman Draper PhD, Phone: [phone] PERFORMED BY: [place] [address] PATHOLOGIST PERFECT BINDER FEEDER OFFBEARER DOMINICK MONTIEL M.D.Performed By: #### ESR, CMP, ADDONUAPLUS, CBC #### [address] #### C3, CH50, C4 #### [facility] ,Complete Blood Count Auto Diffon 50-20-2660Lirqzoucz (Bld) [#/Vol]0.0 10*3/uL Normal0.0-0.2The [facility] Physician [facility] CenterComment on above:Performed By: #### ESR, ADDONUAPLUS, CBC, CMP #### [address] #### C3, C4, CH50 #### [facility] ,Basophils/100 WBC (Bld)0.3 %Normal.The [facility] Physician GroupComment on above:Performed By: #### ESR, ADDONUAPLUS, CBC, CMP #### [place] [address] [place] #### C3, C4, CH50 #### [facility] ,Eosinophils (Bld) [#/Vol]0.1 10*3/uLNormal0.0-0.45The [facility] Comment on above:Performed By: #### ESR, ADDONUAPLUS, CBC, CMP #### [address] #### C3, C4, CH50 #### [facility] ,Eosinophils/100 WBC (Bld)1.9 %Normal.The [facility] Physician GroupComment on above:Performed By: #### ESR, ADDONUAPLUS, CBC, CMP #### [place] [address] [place] #### C3, C4, CH50 #### [facility] ,Erythrocyte distribution width (RBC) [Ratio]14.6 %Czdwga06.9-15.3The [facility] Physician GroupComment on above:Performed By: #### ESR, ADDONUAPLUS, CBC, CMP #### [address] #### C3, C4, CH50 #### [facility] ,Hematocrit (Bld) [Volume fraction]36.0 %Lzaucg23.0-46.4The [facility] Physician GroupComment on above:Performed By: #### ESR, ADDONUAPLUS, CBC, CMP #### [place] [address] [place] #### C3, C4, CH50 #### [facility] ,Hemoglobin (Bld) [Mass/Vol]12.3 g/iOCejfid38.8-15.4The [facility] Physician GroupComment on above:Performed By: #### ESR, ADDONUAPLUS, CBC, CMP #### [place] [address] [place] #### C3, C4, CH50 #### [facility] ,Lymphocytes (Bld) [#/Vol]1.2 10*3/uLNormal1.00-4.8The [facility] Comment on above:Performed By: #### ESR, ADDONUAPLUS, CBC, CMP #### [place] [address] [place] #### C3, C4, CH50 #### [facility] ,Lymphocytes/100 WBC (Bld)24.1 %Normal.The [facility] Physician GroupComment on above:Performed By: #### ESR, ADDONUAPLUS, CBC, CMP #### [address] #### C3, C4, CH50 #### [facility] ,MCH (RBC) [Entitic mass]31.9 acXrbebc04.7-34.3The [facility] Comment on above:Performed By: #### ESR, ADDONUAPLUS, CBC, CMP #### [address] #### C3, C4, CH50 #### [facility] ,MCV (RBC) [Entitic vol]93.7 yWBqvuqj78-933Yxe [facility] Physician GroupComment on above:Performed By: #### ESR, ADDONUAPLUS, CBC, CMP #### [place] [address] [place] #### C3, C4, CH50 #### [facility] ,Mean Corpuscular HGB Conc34.0 g/wYThdwjw15.0-35.0The [facility] Comment on above:Performed By: #### ESR, ADDONUAPLUS, CBC, CMP #### [place] [address] [place] #### C3, C4, CH50 #### [facility] ,Monocytes (Bld) [#/Vol]0.4 10*3/uLNormal0.0-0.8The [facility] Comment on above:Performed By: #### ESR, ADDONUAPLUS, CBC, CMP #### [place] [address] [place] #### C3, C4, CH50 #### [facility] ,Monocytes/100 WBC (Bld)7.7 %Normal.The [facility] Physician GroupComment on above:Performed By: #### ESR, ADDONUAPLUS, CBC, CMP #### [place] [address] [place] #### C3, C4, CH50 #### [facility] ,Neutrophils (Bld) [#/Vol]3.4 10*3/uLNormal1.8-7.7The [facility] Comment on above:Performed By: #### ESR, ADDONUAPLUS, CBC, CMP #### [place] [address] [place] #### C3, C4, CH50 #### [facility] ,Neutrophils/100 WBC (Bld)66.0 %Normal.The [facility] Physician GroupComment on above:Performed By: #### ESR, ADDONUAPLUS, CBC, CMP #### [place] [address] [place] #### C3, C4, CH50 #### [facility] ,NRBC%0.1 /100{WBC}Normal0-0.5The [facility] Physician GroupComment on above: Performed By: #### ESR, ADDONUAPLUS, CBC, CMP #### [place] [address] [place] #### C3, C4, CH50 #### [facility] ,Platelet mean volume (Bld) [Entitic vol]8.4 fLNormal6.3-10.7The [facility] Physician GroupComment on above:Performed By: #### ESR, ADDONUAPLUS, CBC, CMP #### [address] #### C3, C4, CH50 #### [facility] ,Platelets (Bld) [#/Vol]228 10*3/hIUlbofe767-433Hva [facility] Comment on above:Performed By: #### ESR, ADDONUAPLUS, CBC, CMP #### [address] #### C3, C4, CH50 #### [facility] ,RBC (Bld) [#/Vol]3.85 10*6/uLNormal3.60-5.00The [facility] Comment on above:Performed By: #### ESR, ADDONUAPLUS, CBC, CMP #### [place] [address] [place] #### C3, C4, CH50 #### [facility] ,WBC (Bld) [#/Vol]5.1 10*3/uLNormal3.8-11.6The [facility] Physician GroupComment on above:Performed By: #### ESR, ADDONUAPLUS, CBC, CMP #### [address] #### C3, C4, CH50 #### [facility] ,Comprehensive Metabolic Panelon 79-12-6776Puwlcne [Mass/Vol]4.0 g/dLNormal 3.5-5.7The [facility] Physician GroupComment on above:Performed By: #### ESR, ADDONUAPLUS, CBC, CMP #### [place] [address] [place] #### C3, C4, CH50 #### [facility] ,Albumin/Globulin [Mass ratio]1.7 {ratio}NormalThe [facility] Comment on above:Performed By: #### ESR, ADDONUAPLUS, CBC, CMP #### [address] #### C3, C4, CH50 #### [facility] ,ALP [Catalytic activity/Vol]54 U/QBuizht73-595Yfq [facility] Comment on above:Result Comment: PERFORMED BY: [place] [address] PATHOLOGIST PERFECT BINDER FEEDER OFFBEARER DOMINICK MONTIEL M.D.Performed By: #### ESR, ADDONUAPLUS, CBC, CMP #### [address] #### C3, C4, CH50 #### [facility] ,ALT [Catalytic activity/Vol]11 U/LNormal7-52The [facility] Comment on above:Performed By: #### ESR, ADDONUAPLUS, CBC, CMP #### [address] #### C3, C4, CH50 #### [facility] ,Anion gap [Moles/Vol]10.1 mmol/LNormal6.0-15.0The [facility] Comment on above:Performed By: #### ESR, ADDONUAPLUS, CBC, CMP #### [address] #### C3, C4, CH50 #### [facility] ,AST [Catalytic activity/Vol]16 U/SMfunhe88-86Bji [facility] Comment on above:Performed By: #### ESR, ADDONUAPLUS, CBC, CMP #### [place] [address] [place] #### C3, C4, CH50 #### [facility] ,Bilirubin [Mass/Vol]0.5 mg/dLNormal0.3-1.0The [facility] Physician GroupComment on above:Performed By: #### ESR, ADDONUAPLUS, CBC, CMP #### [place] [address] [place] #### C3, C4, CH50 #### [facility] ,Calcium [Mass/Vol]9.3 mg/dLNormal8.6-10.3The [facility] Physician GroupComment on above:Performed By: #### ESR, ADDONUAPLUS, CBC, CMP #### [place] [address] [place] #### C3, C4, CH50 #### [facility] ,Chloride [Moles/Vol]107 mmol/OJqofcs24-089Adh [facility] Physician GroupComment on above:Performed By: #### ESR, ADDONUAPLUS, CBC, CMP #### [address] #### C3, C4, CH50 #### [facility] ,CO2 [Moles/Vol]27.1 mmol/QSrjimd68.0-31.0The [facility] Physician GroupComment on above:Performed By: #### ESR, ADDONUAPLUS, CBC, CMP #### [place] [address] [place] #### C3, C4, CH50 #### [facility] ,Creatinine [Mass/Vol]1.30 mg/dLHigh0.60-1.20The [facility] Comment on above:Performed By: #### ESR, ADDONUAPLUS, CBC, CMP #### [place] [address] [place] #### C3, C4, CH50 #### [facility] ,Estimated GFR41.829 mL/MinNormalThe [facility] Physician [facility] CenterComment on above: Performed By: #### ESR, ADDONUAPLUS, CBC, CMP #### [place] [address] [place] #### C3, C4, CH50 #### [facility] ,Globulin (S) [Mass/Vol]2.3 g/dLNormalThe [facility] Physician GroupComment on above:Performed By: #### ESR, ADDONUAPLUS, CBC, CMP #### [place] [address] [place] #### C3, C4, CH50 #### [facility] ,Glucose [Mass/Vol]94 mg/kMCjgtjd39-421Dsc [facility] Physician GroupComment on above:Result Comment: Random Glucose Reference Range is dependent on time and content of last meal. Glucose of more than 200 mg/dL in a nonstressed, ambulatory subject supports the diagnosis of Diabetes Mellitus. ADA recommended reference rangePerformed By: #### ESR, ADDONUAPLUS, CBC, CMP #### [place] [address] [place] #### C3, C4, CH50 #### [facility] ,Potassium [Moles/Vol]4.2 mmol/LNormal3.5-5.1The [facility] Comment on above:Performed By: #### ESR, ADDONUAPLUS, CBC, CMP #### [place] [address] [place] #### C3, C4, CH50 #### [facility] ,Protein [Mass/Vol]6.3 g/dLLow6.4-8.9The [facility] Physician [facility] CenterComment on above:Performed By: #### ESR, ADDONUAPLUS, CBC, CMP #### [place] [address] [place] #### C3, C4, CH50 #### [facility] ,Sodium [Moles/Vol]140 mmol/CPlttjb369-441Rgf [facility] Physician [facility] CenterComment on above:Performed By: #### ESR, ADDONUAPLUS, CBC, CMP #### [place] [address] [place] #### C3, C4, CH50 #### [facility] ,Urea nitrogen [Mass/Vol]30 mg/dLCamden Clark Medical Center7-25The [facility] Physician GroupComment on above:Performed By: #### ESR, ADDONUAPLUS, CBC, CMP #### [facility] [address] [place] [address] [place] #### C3, C4, CH50 #### [facility] ,Creatinine [Mass/volume] in Serum or PlasmaOrdered By: Obie Hylton on 70-70-3924Ugokowwpkm [Mass/Vol]Creatinine [Mass/volume] in Serum or PlasmaHigh 0.60-1.20Veterans Health AdministrationDipstick and Microscopicon 08-11-2024 Appearance (U)ClearNormalClearThe [facility] Physician GroupComment on above: Order Comment: FASTING.JKW Name Collection Type:: Clean-Voided MidstreamPerformed By: #### ESR, CMP, ADDONUAPLUS, CBC #### [facility] [address] [place] [address] [place] #### C3, CH50, C4 #### [facility] ,Bacteria,UrineRareNormalNone SeenThe [facility] Physician GroupComment on above: Order Comment: FASTING.JKW Name Collection Type:: Clean-Voided MidstreamPerformed By: #### ESR, CMP, ADDONUAPLUS, CBC #### [facility] [address] [place] [address] [place] #### C3, CH50, C4 #### [facility] ,Bilirubin,UrineNegativeNormalNegativeThe [facility] Physician GroupComment on above:Order Comment: FASTING.JKW Name Collection Type:: Clean-Voided MidstreamPerformed By: #### ESR, CMP, ADDONUAPLUS, CBC #### [facility] [address] [place] [address] [place] #### C3, CH50, C4 #### [facility] ,Color (U)YellowNormalYellowSt. Mary'S Medical Center Physician GroupComment on above:Order Comment: FASTING.JKW Name Collection Type:: Clean-Voided MidstreamPerformed By: #### ESR, CMP, ADDONUAPLUS, CBC #### [place] [address] [place] #### C3, CH50, C4 #### [facility] ,Glucose Ql (U)NormalNormalNormRiver Point Behavioral Health Physician GroupComment on above: Order Comment: FASTING.JKW Name Collection Type:: Clean-Voided MidstreamPerformed By: #### ESR, CMP, ADDONUAPLUS, CBC #### [place] [address] [place] #### C3, CH50, C4 #### [facility] ,Hyaline Casts,Kmvzh0-0Ijygto6-5Rhn [facility] Physician GroupComment on above: Order Comment: FASTING.JKW Name Collection Type:: Clean-Voided MidstreamPerformed By: #### ESR, CMP, ADDONUAPLUS, CBC #### [address] #### C3, CH50, C4 #### [facility] ,Ketones Ql (U)NegativeNormalNegativeSt. Mary'[facility] Center Physician GroupComment on above:Order Comment: FASTING.JKW Name Collection Type:: Clean-Voided MidstreamPerformed By: #### ESR, CMP, ADDONUAPLUS, CBC #### [address] #### C3, CH50, C4 #### [facility] ,Leukocyte esterase Test strip Ql (U)NegativeNormalNegMayo Clinic Florida Physician GroupComment on above:Order Comment: FASTING.JKW Name Collection Type:: Clean-Voided MidstreamPerformed By: #### ESR, CMP, ADDONUAPLUS, CBC #### [place] [address] [place] #### C3, CH50, C4 #### [facility] ,Mucus,UrineRareNormalThe [facility] Physician GroupComment on above:Order Comment: FASTING.JKW Name Collection Type:: Clean-Voided MidstreamResult Comment: PERFORMED BY: [place] [address] PATHOLOGIST PERFECT BINDER FEEDER OFFBEARER DOMINICK MONTIEL M.D.Performed By: #### ESR, CMP, ADDONUAPLUS, CBC #### [address] #### C3, CH50, C4 #### [facility] ,Nitrite,UrineNegativeNormalNegativeThe [facility] Physician GroupComment on above:Order Comment: FASTING.JKW Name Collection Type:: Clean-Voided MidstreamPerformed By: #### ESR, CMP, ADDONUAPLUS, CBC #### [address] #### C3, CH50, C4 #### [facility] ,Occult Blood,UrineNegativeNormalNegativeThe [facility] Physician GroupComment on above:Order Comment: FASTING.JKW Name Collection Type:: Clean-Voided MidstreamPerformed By: #### ESR, CMP, ADDONUAPLUS, CBC #### [address] #### C3, CH50, C4 #### [facility] ,pH (U)6.0 [pH]Normal5.0-9.0The [facility] Physician GroupComment on above:Order Comment: FASTING.JKW Name Collection Type:: Clean-Voided MidstreamPerformed By: #### ESR, CMP, ADDONUAPLUS, CBC #### [place] [address] [place] #### C3, CH50, C4 #### [facility] ,Protein,UrineNegativeNormalNegativeThe [facility] Physician GroupComment on above:Order Comment: FASTING.JKW Name Collection Type:: Clean-Voided MidstreamPerformed By: #### ESR, CMP, ADDONUAPLUS, CBC #### [address] #### C3, CH50, C4 #### [facility] ,RBC,Ambig3-1Jtjixm6-4Xcv [facility] Physician GroupComment on above:Order Comment: FASTING.JKW Name Collection Type:: Clean-Voided MidstreamPerformed By: #### ESR, CMP, ADDONUAPLUS, CBC #### [place] [address] [place] #### C3, CH50, C4 #### [facility] ,Specificy [place],Urine1.179Uqvaiy5.001-1.030The [facility] Comment on above:Order Comment: FASTING.JKW Name Collection Type:: Clean-Voided MidstreamPerformed By: #### ESR, CMP, ADDONUAPLUS, CBC #### [address] #### C3, CH50, C4 #### [facility] ,Squamous Epithelial Cell,Webla5-6Zobs9-8Vge [facility] Physician GroupComment on above:Order Comment: FASTING.JKW Name Collection Type:: Clean-Voided MidstreamPerformed By: #### ESR, CMP, ADDONUAPLUS, CBC #### [place] [address] [place] #### C3, CH50, C4 #### [facility] ,Urobilinogen,Urine3 mg/dLHighNoUNC Medical Center Physician GroupComment on above:Order Comment: FASTING.JKW Name Collection Type:: Clean-Voided MidstreamPerformed By: #### ESR, CMP, ADDONUAPLUS, CBC #### [facility] [address] [place] [address] [place] #### C3, CH50, C4 #### [facility] ,WBC,Qptkw1-0Cqdrqe2-8Dvk [facility] Physician GroupComment on above:Order Comment: FASTING.JKW Name Collection Type:: Clean-Voided MidstreamPerformed By: #### ESR, CMP, ADDONUAPLUS, CBC #### [facility] [address] [place] [address] [place] #### C3, CH50, C4 #### [facility] ,Eosinophils Auto (Bld) [#/Vol]Ordered By: Obie Hylton on 08-11-2024 Eosinophils (Bld) [#/Vol]Automated eosinophil count0.0-0.45[facility] Health AdministrationEosinophils/100 WBC Auto (Bld)Ordered By: Obie Hylton on 21-24-3021Acggwwitiek/100 WBC (Bld)Automated eosinophil %.[facility] Health AdministrationEpithelial cells.squamous [#/area] in Urine sediment by Automated countOrdered By: Obie Hylton on 48-31-9603Ztafruhgvk cells.squamous Auto (Urine sed) [#/Area]Epithelial cells.squamous [#/area] in Urine sediment by Automated countHigh0-2FFairfield Medical CenterErythrocyte Sedimentation Rateon 20-46-2642TRQ (Bld) [Velocity]23 mm/hNormal0-29The [facility] Physician GroupComment on above:Result Comment: PERFORMED BY: [place] [address] PATHOLOGIST PERFECT BINDER FEEDER OFFBEARER DOMINICK MONTIEL M.D.Performed By: #### ESR, ADDONUAPLUS, CBC, CMP #### [address] #### C3, C4, CH50 #### [facility] ,Erythrocyte distribution width Auto (RBC) [Ratio]Ordered By: Obie Hylton on 30-02-5106Yxxmzxqcczn distribution width (RBC) [Ratio]Erythrocyte distribution width [Ratio] by Automated count11.9-15.3FFairfield Medical Center Erythrocyte sedimentation rate by Photometric methodOrdered By: Obie Hylton on 83-48-4388UOR Photometric method (Bld) [Velocity]Erythrocyte sedimentation rate by Photometric method0V[facility] Health AdministrationErythrocytes [#/area] in Urine sediment by Automated countOrdered By: Obie Hylton on 36-01-3934CVY Auto (Urine sed) [#/Area]Erythrocytes [#/area] in Urine sediment by Automated count0-4FFairfield Medical CenterGlobulin Calc (S) [Mass/Vol]Ordered By: Obie Hylton on 56-92-5326Rltpnpyr (S) [Mass/Vol]Serum globulin measurement by calculation (mass/volume)[facility] AdministrationGlucose [Mass/volume] in Serum or PlasmaOrdered By: Obie Hylton on 94-65-5403Fmrdxxz [Mass/Vol]Glucose [Mass/volume] in Serum or Eatfyd26-282 [facility] AdministrationComment on above:ADA recommended reference rangeRandom Glucose Reference Range is dependent on time and content of last meal. Glucose of more than 200 mg/dL in a nonstressed, ambulatory subject supports the diagnosisof Diabetes Mellitus.Glucose [Mass/volume] in Urine by Test stripOrdered By: Obie Hylton on 70-64-9524Mxrvqde Test strip (U) [Mass/Vol]Glucose [Mass/volume] in Urine by Test stripNormalVeterans Health AdministrationHematocrit Auto (Bld) [Volume fraction]Ordered By: Obie Hylton on 88-94-8068Acfypladxo (Bld) [Volume fraction]Hematocrit [Volume Fraction] of Blood by Automated count34.0-46.4FFairfield Medical CenterHemoglobin Test strip Ql (U)Ordered By: Obie Hylton on 99-25-7612Ddfzkfsifa Ql (U) Hemoglobin [Presence] in Urine by Test stripNegativeVeterans Health AdministrationHemoglobin [Mass/volume] in BloodOrdered By: Obie Hylton on 08-11-2024 Hemoglobin (Bld) [Mass/Vol]Hemoglobin [Mass/volume] in Blood11.8-15.4FFairfield Medical CenterHyaline casts [#/area] in Urine sediment by Automated countOrdered By: Obie Hylton on 14-36-7105Lixkjsv casts Auto (Urine sed) [#/Area]Hyaline casts [#/area] in Urine sediment by Automated count0-8[facility] Health AdministrationKetones Test strip Ql (U)Ordered By: Obie Hylton on 72-28-0604Kdixrsh Ql (U)Ketones [Presence] in Urine by Test stripNegative [facility] AdministrationLeukocyte esterase [Presence] in Urine by Test stripOrdered By: Obie Hylton on 87-65-4893Tcfoaihdi esterase Test strip Ql (U)Leukocyte esterase [Presence] in Urine by Test stripNegativeVeterans Health AdministrationLeukocytes [#/area] in Urine sediment by Automated count Ordered By: Obie Hylton on 28-06-6596AES Auto (Urine sed) [#/Area]Leukocytes [#/area] in Urine sediment by Automated count0-4FFairfield Medical CenterLeukocytes [#/volume] corrected for nucleated erythrocytes in Blood by Automated counOrdered By: Obie Hylton on 13-95-9531FKR corrected for nucl RBC Auto (Bld) [#/Vol]Leukocytes [#/volume] corrected for nucleated erythrocytes in Blood by Automated coun3.8-11.6FFairfield Medical CenterLymphocytes Auto (Bld) [#/Vol]Ordered By: Obie Hylton on 40-94-9205Vhrfopbbzul (Bld) [#/Vol]Lymphocytes [#/volume] in Blood by Automated count1.00-4.8[facility] Health AdministrationLymphocytes/100 WBC Auto (Bld)Ordered By: Obie Hylton on 91-50-1679Rqhqhgxxjpp/100 WBC (Bld)Lymphocytes/100 leukocytes in Blood by Automated count.[facility]ding [facility] HospitalH Auto (RBC) [Entitic mass] Ordered By: Obie Hylton on 14-29-5620HNJ (RBC) [Entitic mass]MCH [Entitic mass] by Automated count24.7-34.3FFairfield Medical CenterMCHC Auto (RBC) [Mass/Vol]Ordered By: Obie Hylton on 41-77-6079OEGI (RBC) [Mass/Vol] MCHC [Mass/volume] by Automated count32.0-35.0[facility] MCV Auto (RBC) [Entitic vol]Ordered By: Obie Hylton on 33-35-4173ZWV (RBC) [Entitic vol]MCV [Entitic volume] by Automated svcte35-188HaffcvqpqVeterans Health AdministrationMonocytes Auto (Bld) [#/Vol]Ordered By: Obie Hylton on 17-37-4669Tiucjqgsq (Bld) [#/Vol]Automated blood monocyte count0.0-0.8[facility] AdministrationMonocytes/100 WBC Auto (Bld)Ordered By: Obie Hylton on 76-24-5549Wcoeikgrk/100 WBC (Bld)Automated monocyte %.[facility] Health AdministrationMucus [Presence] in Urine by AutomatedOrdered By: Obie Hylton on 24-77-8315Imuxm Auto Ql (U)Mucus [Presence] in Urine by AutomatedVeterans Health AdministrationNeutrophils Auto (Bld) [#/Vol]Ordered By: Obie Hylton on 94-54-2652Jdvkcsuhvua (Bld) [#/Vol]Neutrophils [#/volume] in Blood by Automated count1.8-7.7FFairfield Medical CenterNeutrophils/100 WBC Auto (Bld)Ordered By: Obie Hylton on 32-53-1173Uudiobnherp/100 WBC (Bld)Automated neutrophil %.[facility] Health AdministrationNitrite Test strip Ql (U)Ordered By: Obie Hylton on 79-44-5937Nekhkwg Ql (U)Nitrite [Presence] in Urine by Test stripNegativeVeterans Health AdministrationNo Panel InformationOrdered By: Obie Hylton on 30-16-3050Qpioyffgu GFR (CKD-EPI)41.829 mL/MinVeterans Health AdministrationPharmacy Creatinine Clearance (ChemN/AFFairfield Medical CenterNucleated erythrocytes [Presence] in Blood by Automated count Ordered By: Obie Hylton on 71-51-2214Kcgmlsugt RBC Auto Ql (Bld)Nucleated erythrocytes [Presence] in Blood by Automated count0-0.5FFairfield Medical CenterPlatelet mean volume Auto (Bld) [Entitic vol]Ordered By: Obie Hylton on 25-26-7659Ktawupxe mean volume (Bld) [Entitic vol]Platelet mean volume [Entitic volume] in Blood by Automated count6.3-10.7FFairfield Medical CenterPlatelets Auto (Bld) [#/Vol]Ordered By: Obie Hylton on 08-11-2024 Platelets (Bld) [#/Vol]Platelets [#/volume] in Blood by Automated xovad969-895 [facility] AdministrationPotassium [Moles/volume] in Serum or Plasma Ordered By: Obie Hylton on 50-10-2819Qoauepwhf [Moles/Vol]Potassium [Moles/volume] in Serum or Plasma3.5-5.1FFairfield Medical CenterProtein Test strip (U) [Mass/Vol]Ordered By: Obie Hylton on 81-61-9397Zexqmgc (U) [Mass/Vol]Protein [Mass/volume] in Urine by Test stripNegativeVeterans Health AdministrationProtein [Mass/volume] in Serum or PlasmaOrdered By: Obie Hylton on 25-13-4745Xzrxhmu [Mass/Vol]Protein [Mass/volume] in Serum or Plasma Low6.4-8.9[facility] AdministrationRBC Auto (Bld) [#/Vol]Ordered By: Obie Hylton on 90-34-4803IQO (Bld) [#/Vol]Erythrocytes [#/volume] in Blood by Automated count3.60-5.00[facility] Easterum or plasma albumin/globulin mass ratioOrdered By: Obie Hylton on 08-11-2024 Albumin/Globulin [Mass ratio]Serum or plasma albumin/globulin mass ratio [facility] Easterum or plasma anion gap determinationOrdered By: Obie Hylton on 86-90-9378Dashh gap [Moles/Vol]Serum or plasma anion gap determination6.0-15.0[facility] Easterum or plasma complement C3 measurement (mass/volume)Ordered By: Obie Hylton on 27-10-7917Tsnkrhtnaq C3 [Mass/Vol]Serum or plasma complement C3 measurement (mass/volume)82-167 [facility] Easterum or plasma complement C4 measurement (mass/volume)Ordered By: Obie Hylton on 79-76-1176Ksbfrvpdhg C4 [Mass/Vol] Serum or plasma complement C4 measurement (mass/volume)12-38[facility] Health AdministrationComment on above:Performed at: [facility] [id number] Director: Usman Draper PhD, Phone: [phone] Sodium [Moles/volume] in Serum or PlasmaOrdered By: Obie Hylton on 08-11-2024 Sodium [Moles/Vol]Sodium [Moles/volume] in Serum or Ceknsi843-719VvpdapmcgRegency Hospital Cleveland Eastpecific gravity Test strip (U) [Rel density]Ordered By: Obie Hylton on 50-72-3573Agtvumjp gravity (U) [Rel density]Specific gravity of Urine by Test strip1.001-1.030[facility] Health AdministrationTotal hemolytic complement CH50 assayOrdered By: Obie Hylton on 97-83-2661Ehnys Complement (CH50)54 U/mL>41V[facility] Health AdministrationComment on above:Age Male Female 1 - 30 days Not Estab. Not Estab. 31 days - 6 months >32 >20 7 months - 17 years >39 >39 >17 years >41 >41 NOTE: The adult ( >17 years ) reference intervalrange is used to flag abnormals on this report. If the patient is 17 years old or younger, use the table above to determine out of range values.Performed at: [employer] [id number] Director: Usman Draper PhD, Phone: [phone] nitrogen [Mass/volume] in Serum or PlasmaOrdered By: Obie Hylton on 91-86-7168Rweb nitrogen [Mass/Vol]Urea nitrogen [Mass/volume] in Serum or PlasmaHigh7-25 [facility] Health AdministrationUrobilinogen Test strip (U) [Mass/Vol]Ordered By: Obie Hylton on 52-53-0839Xsyrgfmkqcsy (U) [Mass/Vol]Urobilinogen [Mass/volume] in Urine by Test stripHighNormalVeterans Health Administration WBC Auto (Bld) [#/Vol]Ordered By: Obie Hylton on 10-86-8246XZF (Bld) [#/Vol] Leukocytes [#/volume] in Blood by Automated count3.8-11.6FFairfield Medical CenterpH Test strip (U)Ordered By: Obie Hylton on 72-72-8858cF (U)pH of Urine by Test strip5.0-9.0V[facility] Health AdministrationXR Ankle - right 3 Viewson 07-10-2024 1. No acute bone abnormality or significant degenerative joint disease. [facility] Bello Mittal MD - 07/10/2024 PROCEDURE: XR ANKLE RIGHT [...] abnormality or significant degenerative joint disease. [facility] HospitalRadiology Study observation (narrative)[facility] HospitalXR Ankle - right 3 ViewsOrdered By: Bello Leal on 88-57-2521Tyt [facility] HospitalCOVID-19, Rapidon 68-81-4173Mazsmyphyvqqto and review of laboratory resultsAbMary Washington HealthcareSARS-CoV-2 (COVID-19) RdRp gene JUAQUIN+probe Ql (Resp)DetectedAbnormal Comment on above: Rapid NAAT: The specimen [...] reported to the appropriate Health Department Specimen Description.NASOPHARYNGEAL SWABBon Madison Community HospitalFlu A/B Ag Detectionon 17-73-3919Yrm A Ag DetectionNegativeNormalNEG [facility]opathic HospitalComment on above:Result Comment: for Influenza A Antigen Performed By: #### FLUABA #### [facility] [address] [place] [address] Motorcycle Deliverer: Christian Muir MDFlu B Ag DetectionNegativeNormalNEGDayton Osteopathic HospitalCombronson lakeview hospital on above:Result Comment: for Influenza B Antigen.Performed By: #### FLUABA #### [facility] [address] [place], [place] [id number] Motorcycle Deliverer: Arnaldo Eugene Strep Screenon 35-46-1878Mtaodgnx source Nom (Unsp spec).THROAT SWABBon Secours Parkview HealthStrep A, MolecularNegative NEGATIVEBon Secours Parkview HealthBon Secours Parkview HealthRapid influenza A/B antigenson 50-82-0742SLKEY Ag Ql (Unsp spec)NegativeNEGATIVEBon SecWilson HealthComment on above:for Influenza A AntigenFLUBV Ag Ql (Unsp spec)Negative NEGATIVEBon SecWilson HealthComment on above:for Influenza B Antigen.Bon SecWilson HealthOywqqvQXCA-GsZ-2dk 79-64-1864HATL-CoV-2 (COVID-19) RNA JUAQUIN+probe Ql (Unsp spec)DetectedAbnormalNOTDETMTrumbull Memorial HospitalComment on above: Result Comment: Rapid NAAT: The [...] Amplification Results reported to the appropriate Health DepartmentPerformed By: #### COVRB #### [facility] [address] [place] [address] Motorcycle Deliverer: Vane Eugene Group A, Rapidon 60-89-7800Oimgf A, MolecularNegativeNormalNEGDayton Osteopathic HospitalComment on above:Performed By: #### COVRB #### [facility] [address] [place] [address] Motorcycle Deliverer: Annika Eugene.THROAT SWABNormSt. Mary's Medical Center Comment on above:Performed By: #### COVRB #### [facility] [address] [place] [address] Motorcycle Deliverer: MORALES Eugene UW DIGITAL SCREEN BILATERALon 37-93-3167SHZ WU DIGITAL SCREEN BILATERALHISTORY: Screening. Family history of breast carcinoma. TECHNIQUE: [...] the patient regarding the results. Performing Facility: [facility] [address] [place], [place] [address] Interpreted by: Ishmael Valentin Jr., MD Signed by: Ishmael Valentin Jr., MD 05/12/24 Final resultNormalDayton Osteopathic HospitalAlanine aminotransferase [Enzymatic activity/volume] in Serum or PlasmaOrdered By: Obie Hylton on 21-38-7660CML [Catalytic activity/Vol]10 U/L7-52[facility] AdministrationAlbumin [Mass/volume] in Serum or Plasma by Bromocresol green (BCG) dye binding metho Ordered By: Obie Hylton on 47-92-7772Xzdaxmu BCG dye [Mass/Vol]3.9 g/dL 3.5-5.7FFairfield Medical CenterAlkaline phosphatase [Enzymatic activity/volume] in Serum or PlasmaOrdered By: Obie Hylton on 03-21-1967LJQ [Catalytic activity/Vol]56 U/L73-960AoqlbckgiVeterans Health AdministrationAspartate aminotransferase [Enzymatic activity/volume] in Serum or PlasmaOrdered By: Obie Hylton on 88-69-9480WVO [Catalytic activity/Vol]13 U/T98-34HapqxbxkvVeterans Health AdministrationBacteria [Presence] in Urine sediment by Light microscopy Ordered By: bOie Hylton on 44-22-4872Kumpsqsw LM Ql (Urine sed)Rare [HPF]High None SeenVeterans Health AdministrationBasophils Auto (Bld) [#/Vol]Ordered By: Obie Hylton on 03-66-3335Jjdabllmd (Bld) [#/Vol]0.0 10*3/uL0.0-0.2 [facility] AdministrationBasophils/100 WBC Auto (Bld)Ordered By: Obie Hylton on 27-13-4237Pkhnvdaba/100 WBC (Bld)0.3 %.[facility] AdministrationBilirubin Test strip Ql (U)Ordered By: Obie Hylton on 12-19-2023 Bilirubin Ql (U)NegativeNegativeVeterans Health AdministrationBilirubin.total [Mass/volume] in Serum or PlasmaOrdered By: Obie Hylton on 12-19-2023 Bilirubin [Mass/Vol]0.4 mg/dL0.3-1.0[facility] AdministrationCalcium [Mass/volume] in Serum or PlasmaOrdered By: Obie Hylton on 24-19-8014Iavwwbi [Mass/Vol]9.1 mg/dL8.6-10.3FFairfield Medical CenterCarbon dioxide, total [Moles/volume] in Serum or PlasmaOrdered By: Obie Hylton on 12-19-2023 CO2 [Moles/Vol]27.0 mmol/L21.0-31.0[facility] AdministrationChloride [Moles/volume] in Serum or PlasmaOrdered By: Obie Hylton on 12-19-2023 Chloride [Moles/Vol]107 mmol/A64-268IrddtfkxxVeterans Health AdministrationColor Auto (U)Ordered By: Obie Hylton on 96-70-3213Pgysp (U)Light-yellowYellowVeterans Health AdministrationCreatinine [Mass/volume] in Serum or PlasmaOrdered By: Obie Hylton on 45-41-9021Ufjtouqqwo [Mass/Vol]1.16 mg/dL0.60-1.20[facility] AdministrationEosinophils Auto (Bld) [#/Vol]Ordered By: Obie Hylton on 17-16-1189Hbnplnmlaww (Bld) [#/Vol]0.1 10*3/uL0.0-0.45[facility] AdministrationEosinophils/100 WBC Auto (Bld)Ordered By: Obie Hylton on 56-99-3277Evirdwcbpip/100 WBC (Bld)2.5 %.[facility] Epithelial cells.squamous [#/area] in Urine sediment by Microscopy high power fieldOrdered By: Obie Hylton on 85-12-1670Wphiviivmh cells.squamous LM.HPF (Urine sed) [#/Area]0-1 [HPF]0-2FFairfield Medical CenterErythrocyte distribution width Auto (RBC) [Ratio]Ordered By: Obie Hylton on 12-19-2023 Erythrocyte distribution width (RBC) [Ratio]15.0 %11.9-15.3FFairfield Medical CenterErythrocyte sedimentation rate by Photometric methodOrdered By: Obie Hylton on 23-04-8834WOU Photometric method (Bld) [Velocity]12 mm/hr0-29 [facility] AdministrationErythrocytes [#/area] in Urine sediment by Microscopy high power fieldOrdered By: Obie Hylton on 15-07-8005NLD LM.HPF (Urine sed) [#/Area]None seen [HPF]0-4FFairfield Medical CenterGlobulin Calc (S) [Mass/Vol]Ordered By: Obie Hylton on 85-46-5195Lwswwwhj (S) [Mass/Vol]2.0 g/dLVeterans Health AdministrationGlucose [Mass/volume] in Serum or PlasmaOrdered By: Obie Hylton on 91-32-3493Nznfdyp [Mass/Vol]92 mg/kE67-852ExtrkkwgaVeterans Health AdministrationComment on above:ADA recommended reference rangeRandom Glucose Reference Range is dependent on time and content of last meal. Glucose of more than 200 mg/dL in a nonstressed, ambulatory subject supports the diagnosisof Diabetes Mellitus.Glucose [Mass/volume] in Urine by Test stripOrdered By: Obie Hylton on 73-31-8841Strvaho Test strip (U) [Mass/Vol]Normal mg/dLNormalVeterans Health AdministrationHematocrit Auto (Bld) [Volume fraction]Ordered By: Obie Hylton on 46-89-3498Rwjecvvqsw (Bld) [Volume fraction]33.2 %Low34.0-46.4FFairfield Medical CenterHemoglobin Test strip Ql (U)Ordered By: Obie Hylton on 35-34-8753Epuhmbuprt Ql (U) NegativeNegGrant HospitalHemoglobin [Mass/volume] in BloodOrdered By: Obie Hylton on 76-80-9214Beglulgwtz (Bld) [Mass/Vol]11.2 g/dLLow11.8-15.4FFairfield Medical CenterKetones Test strip Ql (U) Ordered By: Obie Hylton on 81-35-8044Cvjvgtq Ql (U)NegativeNegGrant HospitalLeukocyte esterase [Presence] in Urine by Test strip Ordered By: Obie Hylton on 81-05-8613Rhtcpxrqu esterase Test strip Ql (U) NegativeNegGrant HospitalLeukocytes [#/area] in Urine sediment by Microscopy high power fieldOrdered By: Obie Hylton on 12-19-2023 WBC LM.HPF (Urine sed) [#/Area]None seen [HPF]0-4FFairfield Medical CenterLeukocytes [#/volume] corrected for nucleated erythrocytes in Blood by Automated counOrdered By: Obie Hylton on 67-51-1604JJW corrected for nucl RBC Auto (Bld) [#/Vol]5.9 10*3/uL3.8-11.6FFairfield Medical Center Lymphocytes Auto (Bld) [#/Vol]Ordered By: Obie Hylton on 12-19-2023 Lymphocytes (Bld) [#/Vol]1.1 10*3/uL1.00-4.8[facility] Lymphocytes/100 WBC Auto (Bld)Ordered By: Obie Hylton on 12-19-2023 Lymphocytes/100 WBC (Bld)17.9 %.[facility] Auto (RBC) [Entitic mass]Ordered By: Obie Hylton on 38-13-3653LHC (RBC) [Entitic mass] 31.5 pg24.7-34.3FFairfield Medical CenterMCHC Auto (RBC) [Mass/Vol] Ordered By: Obie Hylton on 85-99-4526ASWX (RBC) [Mass/Vol]33.8 g/dL32.0-35.0 [facility] AdministrationMCV Auto (RBC) [Entitic vol]Ordered By: Obie Ramirezrow on 44-01-7795ZQL (RBC) [Entitic vol]93.2 wP01-261SrvvidfvyVeterans Health AdministrationMonocytes Auto (Bld) [#/Vol]Ordered By: Obie Ramirezrow on 45-13-8858Bxovpvkkc (Bld) [#/Vol]0.5 10*3/uL0.0-0.8V[facility] AdministrationMonocytes/100 WBC Auto (Bld)Ordered By: Obie Hylton on 12-19-2023 Monocytes/100 WBC (Bld)9.2 %.[facility] Health AdministrationNeutrophils Auto (Bld) [#/Vol]Ordered By: Obieradha Hylton on 41-22-5745Zgerbaiezmp (Bld) [#/Vol] 4.1 10*3/uL1.8-7.7FFairfield Medical CenterNeutrophils/100 WBC Auto (Bld)Ordered By: Obie Hylton on 82-69-6471Sixxvkadsfi/100 WBC (Bld)70.1 %. [facility] Health AdministrationNitrite Test strip Ql (U)Ordered By: Obie Ramirezrow on 79-02-9308Gvqwtnp Ql (U)NegativeNegativeVeterans Health AdministrationNo Panel InformationOrdered By: Obie Warner on 66-11-2225Hfvoeqhqd GFR (CKD-EPI)47.958 mL/MinVeterans Health AdministrationPharmacy Creatinine Clearance (ChemN/[facility] HospitalTotal Complement (CH50)57 U/mL>41Veter[facility] Health AdministrationComment on above:Age Male Female 1 - 30 days Not Estab. Not Estab. 31 days - 6 months >32 >20 7 months - 17 years >39 >39 >17 years >41 >41 NOTE: The adult ( >17 years ) reference intervalrange is used to flag abnormals on this report. If the patient is 17 years old or younger, use the table above to determine out of range values.Performed at: [address] [id number] Director: Usman Draper PhD, Phone: [phone] erythrocytes [Presence] in Blood by Automated countOrdered By: Obie Hylton on 91-69-7740Krvhtmsjy RBC Auto Ql (Bld)0.2 /100{WBC}0-0.5FFairfield Medical CenterPlatelet mean volume Auto (Bld) [Entitic vol]Ordered By: Obie Hylton on 35-79-3311Trjlknoc mean volume (Bld) [Entitic vol]8.7 fL6.3-10.7FFairfield Medical Center Platelets Auto (Bld) [#/Vol]Ordered By: Obie Hylton on 46-92-9563Egclprffk (Bld) [#/Vol]201 10*3/kM700-485OexlinrtuVeterans Health AdministrationPotassium [Moles/volume] in Serum or PlasmaOrdered By: Obie Hylton on 12-19-2023 Potassium [Moles/Vol]4.3 mmol/L3.5-5.1FFairfield Medical CenterProtein Test strip (U) [Mass/Vol]Ordered By: Obie Hylton on 93-92-6789Eqhkqpu (U) [Mass/Vol]NegativeNegativeVeterans Health AdministrationProtein [Mass/volume] in Serum or PlasmaOrdered By: Obie Hylton on 00-91-2859Ziinvgf [Mass/Vol]5.9 g/dLLow6.4-8.9V[facility] Health AdministrationRBC Auto (Bld) [#/Vol]Ordered By: Obie Hylton on 17-89-2294LYP (Bld) [#/Vol]3.56 10*6/uLLow3.60-5.00 [facility] Easterum or plasma albumin/globulin mass ratio Ordered By: Obie Hylton on 95-55-0678Pgqnevy/Globulin [Mass ratio]2.0 {ratio} [facility] Easterum or plasma anion gap determinationOrdered By: Obie Hylton on 24-11-3953Feaqv gap [Moles/Vol]9.3 mmol/L6.0-15.0[facility] Easterum or plasma complement C3 measurement (mass/volume) Ordered By: Obie Hylton on 83-22-7333Trrlpdmjyy C3 [Mass/Vol]120 mg/uL50-042 [facility] Health AdministrationComment on above:Performed at: - [facility] [address] [id number] Director: Usman Draper PhD, Phone: [phone] or plasma complement C4 measurement (mass/volume)Ordered By: Obie Hylton on 10-18-6307Wmktsnzxwv C4 [Mass/Vol]22 mg/xC99-71XdnnqdaniRegency Hospital Cleveland Eastodium [Moles/volume] in Serum or PlasmaOrdered By: Obie Hylton on 66-76-6069Wcifbm [Moles/Vol]139 mmol/R054-787NmuhmkblnRegency Hospital Cleveland Eastpecific gravity Test strip (U) [Rel density]Ordered By: Obie Hylton on 45-93-1639Rfhnqwln gravity (U) [Rel density]1.0201.001-1.030 [facility] AdministrationUrea nitrogen [Mass/volume] in Serum or Plasma Ordered By: Obie Hylton on 33-51-4975Hgki nitrogen [Mass/Vol]33 mg/dLHigh7-25 [facility] AdministrationUrine appearanceOrdered By: Obie Hylton on 01-75-6179Tfbcpoeboz (U)ClearClearFFairfield Medical CenterUrobilinogen Test strip (U) [Mass/Vol]Ordered By: Obie Hylton on 07-26-5020Lfgqfjwetyqj (U) [Mass/Vol]Normal mg/dLNormalVeterans Health AdministrationWBC Auto (Bld) [#/Vol]Ordered By: Obie Hylton on 48-69-4964XCV (Bld) [#/Vol]5.9 10*3/uL 3.8-11.6FFairfield Medical CenterpH Test strip (U)Ordered By: Obie Hylton on 48-07-4965iX (U)5.5 [pH]5.0-9.0[facility] Health AdministrationBasic Metabolic Profon 24-68-7580Uvkhp gap [Moles/Vol]11 mmol/LNormal9-17Day[facility]opathic HospitalComment on above:Performed By: #### BMP #### [facility] [address] [id number] Motorcycle Deliverer: Christian Muir MDBUN/CRE Lbegn93Gphdcp6-53Snlhf [facility] Comment on above:Performed By: #### BMP #### [facility] [address] [place] [id number] Motorcycle Deliverer: JAUN Eugenealcium [Mass/Vol]9.1 mg/dLNormal8.6-10.4[facility] HospitalComment on above:Performed By: #### BMP #### [facility] [address] [id number] Motorcycle Deliverer: JAUN Eugenehloride [Moles/Vol]104 mmol/DOshovd95-906NpkyoDayton Osteopathic HospitalComment on above:Performed By: #### BMP #### [facility] [address] [id number] Motorcycle Deliverer: JAUN EugeneO2 [Moles/Vol]22 mmol/SNzrfwy65-66QmoioDayton Osteopathic HospitalComment on above:Performed By: #### BMP #### [facility] [address] [id number] Motorcycle Deliverer: JAUN Eugenereatinine [Mass/Vol]1.3 mg/dLHigh0.5-0.9[facility] HospitalComment on above:Performed By: #### BMP #### [facility] [address] [id number] Motorcycle Deliverer: Christian Muir MDGFR/1.73 sq M.predicted among non-blacks MDRD (S/P/Bld) [Vol rate/Area]42 mL/min/{1.73_m2}Low>60Day[facility]opathic HospitalComment on above:Result Comment: These results are not intended for [...] or following therapy that affects renal tubular secretion.Performed By: #### BMP #### [facility] [address] [place], [place] [id number] Motorcycle Deliverer: Christian Muir MDGlucose [Mass/Vol]88 mg/eLNkvmud71-43IthloTrumbull Memorial HospitalComment on above:Performed By: #### BMP #### [facility] [address] [place] [address] Motorcycle Deliverer: ROBERT Eugeneotassium [Moles/Vol]4.3 mmol/LNormal3.7-5.3MTrumbull Memorial HospitalComment on above:Performed By: #### BMP #### [facility] [address] [id number] Motorcycle Deliverer: ROSALIO Eugeneodium [Moles/Vol]137 mmol/CWppkhk232-552IgajlDayton Osteopathic HospitalComment on above:Performed By: #### BMP #### [facility] [address] [phone] Motorcycle Deliverer: Christian Muir MDUrea nitrogen [Mass/Vol]25 mg/dLHigh8-23Day[facility]opathic HospitalComment on above:Performed By: #### BMP #### [facility] [address] [place] [address] Motorcycle Deliverer: Christian Muir MDBasic Metabolic Panelon 00-88-1450Zqlvi gap [Moles/Vol]13 mmol/L9 - 17 mmol/LBON SECOURS MERCY HEALTHCalcium [Mass/Vol]9.1 mg/dL8.6 - 10.4 mg/dLBON SECOURS MERCY HEALTHChloride [Moles/Vol]104 mmol/L98 - 107 mmol/LBON SECOURS MERCY HEALTHCO2 [Moles/Vol]20 mmol/L20 - 31 mmol/LBON SECOURS MERCY HEALTHCreatinine [Mass/Vol]1.1 mg/dLHigh0.5 - 0.9 mg/dLBON [facility]NT[facility]IO HOSPITALEst, Glom Filt Vyjq30Vki- PINFBON [facility] SYSTEM ONTARIO HOSPITALComment on above: These results are not intended [...] therapy that affects renal tubular secretion. Glucose [Mass/Vol]153 mg/xZQrjr01 - 99 mg/dLBON [facility] Interpretation and review of laboratory resultsAbnormalBON [facility] Potassium [Moles/Vol]3.3 mmol/LLow3.7 - 5.3 mmol/LBON [facility] SYSTEM ONTARIO HOSPITALSodium [Moles/Vol]137 mmol/L135 - 144 mmol/LBON [facility]NT[facility]IO HOSPITALUrea nitrogen [Mass/Vol]26 mg/dLHigh8 - 23 mg/dLBON [facility] SYSTEM ONTARIO HOSPITALUrea nitrogen/Creatinine [Mass ratio]24 mg/mgHigh9 - 20BON [facility]NT[facility]IO HOSPITALBasic Metabolic Profon 42-03-9751Jbexv gap [Moles/Vol]13 mmol/LNormal9-17Day[facility]opathic HospitalComment on above:Performed By: #### TSH, CBC, TROPI, BMP #### [facility] [address] [place] [address] Motorcycle Deliverer: Christian Muir MDBUN/CRE Zgtvs38Furs8-98XnvhgDayton Osteopathic Hospital Comment on above:Performed By: #### TSH, CBC, TROPI, BMP #### [facility] [address] [place] [address] Motorcycle Deliverer: JAUN Eugenealcium [Mass/Vol]9.1 mg/dLNormal8.6-10.4[facility] HospitalComment on above:Performed By: #### TSH, CBC, TROPI, BMP #### [facility] [address] [place] [address] Motorcycle Deliverer: JAUN Eugenehloride [Moles/Vol]104 mmol/IGtrghl97-247WqqsrDayton Osteopathic HospitalCombronson lakeview hospital on above:Performed By: #### TSH, CBC, TROPI, BMP #### [facility] [address] [phone] Motorcycle Deliverer: JAUN EugeneO2 [Moles/Vol]20 mmol/NIpayhg44-82AzdfzSouthwest General Health Center on above:Performed By: #### TSH, CBC, TROPI, BMP #### [facility] [address] [place] [address] Motorcycle Deliverer: JAUN Eugenereatinine [Mass/Vol]1.1 mg/dLHigh0.5-0.9[facility] on above:Performed By: #### TSH, CBC, TROPI, BMP #### [facility] [address] [place] [address] Motorcycle Deliverer: Christian Muir MDGFR/1.73 sq M.predicted among non-blacks MDRD (S/P/Bld) [Vol rate/Area]51 mL/min/{1.73_m2}Low>60[facility] on above:Result Comment: These results are not intended for [...] or following therapy that affects renal tubular secretion.Performed By: #### TSH, CBC, TROPI, BMP #### [facility] [address] [phone] Motorcycle Deliverer: Christian Muir MDGlucose [Mass/Vol]153 mg/qFFznd09-38PlsgyBlanchard Valley Health System on above:Performed By: #### TSH, CBC, TROPI, BMP #### [facility] [address] [phone] Motorcycle Deliverer: ROBERT Eugeneotassium [Moles/Vol]3.3 mmol/LLow3.7-5.3MTrumbull Memorial HospitalComment on above:Performed By: #### TSH, CBC, TROPI, BMP #### [facility] [address] [place] [address] Motorcycle Deliverer: ROSALIO Eugeneodium [Moles/Vol]137 mmol/BIejehk977-864VginmDayton Osteopathic HospitalComment on above:Performed By: #### TSH, CBC, TROPI, BMP #### [facility] [address] [place] [address] Motorcycle Deliverer: Christian Muir MDUrea nitrogen [Mass/Vol]26 mg/dLHigh8-23Day[facility] HospitalComment on above:Performed By: #### TSH, CBC, TROPI, BMP #### [facility] [address] [place] [address] Motorcycle Deliverer: JAUN Eugenebrianna 14-09-3177Hwbyuzgjsbi distribution width (RBC) [Ratio]14.7 %12.1 - 15.2 %[facility] MONTGOMERYHematocrit (Bld) [Volume fraction]37.0 %36.0 - 46.0 %BON [facility] HOSPITALHemoglobin (Bld) [Mass/Vol] 12.2 g/dL12.0 - 16.0 g/dLBON [facility]NT[facility]IO HOSPITALInterpretation and review of laboratory resultsAbnormalBON [facility] TOLEDOH (RBC) [Entitic mass]31.1 pg26.0 - 34.0 pgBON REGENCY HOSPITAL TOLEDOHC (RBC) [Mass/Vol]33.0 g/dL31.0 - 37.0 g/dLBON REGENCY HOSPITAL TOLEDOV (RBC) [Entitic vol]94.4 fL80.0 - 100.0 fL BON [facility]NT[facility]IO HOSPITALPlatelet mean volume (Bld) [Entitic vol]10.3 fL6.0 - 12.0 fLLEWISGALE HOSPITAL MONTGOMERYPlatelets (Bld) [#/Vol]179 10*3/uLBON [facility] SYSTEM ONTARIO HOSPITALRBC (Bld) [#/Vol]3.92 10*6/uLLow4.00 - 5.20 m/[facility] HospitalWBC other (Bld) [#/Vol]4.3[facility] Erythrocyte distribution width (RBC) [Ratio]14.7 %Xixxef65.1-15.2[facility] Medical CenterComment on above:Performed By: #### TSH, CBC, TROPI, BMP #### [facility] [address] [place] [address] Motorcycle Deliverer: Christian Muir MDHematocrit (Bld) [Volume fraction]37.0 %Normal 36.0-46.0Day[facility] Osteopathic HospitalComment on above:Performed By: #### TSH, CBC, TROPI, BMP #### [facility] [address] [phone] Motorcycle Deliverer: Christian Muir MDHemoglobin (Bld) [Mass/Vol]12.2 g/dLNormal 12.0-16.0[facility] HospitalComment on above:Performed By: #### TSH, CBC, TROPI, BMP #### [facility] [address] [place] [address] Motorcycle Deliverer: TONYA Eugene (RBC) [Entitic mass]31.1 ldWlnegk71.0-34.0 [facility] HospitalComment on above:Performed By: #### TSH, CBC, TROPI, BMP #### [facility] [address] [phone] Motorcycle Deliverer: TONYA EugeneC (RBC) [Mass/Vol]33.0 g/tMGiwdej06.0-37.0[facility] HospitalComment on above:Performed By: #### TSH, CBC, TROPI, BMP #### [facility] [address] [place] [address] Motorcycle Deliverer: KATINA Eugene (RBC) [Entitic vol]94.4 lBCxoxlu04.0-100.0 [facility] Hospitalment on above:Performed By: #### TSH, CBC, TROPI, BMP #### [facility] [address] [place] [address] Motorcycle Deliverer: Juan Eugene mean volume (Bld) [Entitic vol]10.3 fL Normal6.0-12.0[facility] HospitalCombronson lakeview hospital on above:Performed By: #### TSH, CBC, TROPI, BMP #### [facility] [address] [place] [address] Motorcycle Deliverer: Chanell Eugene (Bld) [#/Vol]179 10*3/mJDyhtnn783-660 [facility] HospitalComment on above:Performed By: #### TSH, CBC, TROPI, BMP #### [facility] [address] [place] [address] Motorcycle Deliverer: HERMELINDA Eugene (Bld) [#/Vol]3.92 10*6/uLLow4.00-5.20[facility] HospitalCombronson lakeview hospital on above:Performed By: #### TSH, CBC, TROPI, BMP #### [facility] [address] [place] [address] Motorcycle Deliverer: ANSON Eugene (Bld) [#/Vol]4.3 10*3/uLNormal3.5-11.0[facility] on above:Performed By: #### TSH, CBC, TROPI, BMP #### [facility] [address] [place] [address] Motorcycle Deliverer: Tova Eugene Panel Informationon 83-20-0573XSG [facility]NT[facility]IO HOSPITALTSHon 22-53-5781KQX Qn1.80 m[IU]/LBON [facility] ONTARIO HOSPITALThyroid Stim. Horm.on 39-79-4344Mnpxine Stim. Horm.1.80 uIU/mLNormal0.30-5.00[facility] on above:Performed By: #### TSH, CBC, TROPI, BMP #### [facility] [address] [place], [place] [id number] Motorcycle Deliverer: Kam Eugene 24-27-2532Nzjycbwc I.cardiac High sensitivity method [Mass/Vol]10 ng/L0 - 14 ng/LBON [facility] on above:High Sensitivity Troponin values cannot be compared with other Troponin methodologies.Troponin, High Sens10 ng/LNormal0-14[facility] on above:Result Comment: High Sensitivity Troponin values cannot be compared with other Troponin methodologies.Performed By: #### TSH, CBC, TROPI, BMP #### [facility] [address] [place] [address] Motorcycle Deliverer: Christian Muir [facility] WEATHERFORDBC with Auto Differentialon 42-54-3524Daqxznyy Bands0.18[facility] HEALTHBands4 %0 - 10 %[facility] Basophils (Bld) [#/Vol][facility] HEALTHBasophils/100 WBC (Bld)0 - 2 %[facility] HEALTHEosinophils %0 - 5 %[facility] HEALTHEosinophils (Bld) [#/Vol][facility] HEALTHErythrocyte distribution width (RBC) [Ratio]14.7 %12.1 - 15.2 %[facility] HEALTHHematocrit (Bld) [Volume fraction]39.4 %36.0 - 46.0 %[facility] HEALTHHemoglobin (Bld) [Mass/Vol] 12.9 g/dL12.0 - 16.0 g/dLBON SECMAIN CAMPUS MEDICAL CENTERImmature granulocytes (Bld) [#/Vol][facility] HEALTHImmature granulocytes/100 WBC (Bld)0 %[facility] MONTGOMERYInterpretation and review of laboratory resultsAbnormalLEWISGALE HOSPITAL MONTGOMERYLymphocytes/100 WBC (Bld)5 %Low15 - 40 %[facility] Lymphocytes/100 WBC (Bld)0.23 %LowBON REGENCY HOSPITAL TOLEDOH (RBC) [Entitic mass]30.6 pg26.0 - 34.0 pgBON REGENCY HOSPITAL TOLEDOHC (RBC) [Mass/Vol]32.7 g/dL 31.0 - 37.0 g/dLBON SECKETTERING HEALTH SPRINGFIELDV (RBC) [Entitic vol]93.4 fL80.0 - 100.0 fLLEWISGALE HOSPITAL MONTGOMERYMonocytes/100 WBC (Bld)6 %4 - 8 %[facility] MONTGOMERYMonocytes/100 WBC (Bld)0.27 %[facility] MONTGOMERYMorphology Igor (Bld) [Interp]Platelet morphology normal.[facility] MONTGOMERYMorphology Igor (Bld) [Interp]RBC morphology normal.[facility] MONTGOMERYMorphology Igor (Bld) [Interp]Manual Differential PerformedLEWISGALE HOSPITAL MONTGOMERYNeutrophils/100 WBC (Bld)85 %High47 - 75 %[facility] MONTGOMERYPlatelet mean volume (Bld) [Entitic vol]9.4 fL6.0 - 12.0 fLLEWISGALE HOSPITAL MONTGOMERYPlatelets (Bld) [#/Vol] 152 10*3/uLLEWISGALE HOSPITAL MONTGOMERYRBC (Bld) [#/Vol]4.22 10*6/uL4.00 - 5.20 m/uL [facility] MONTGOMERYSegmented neutrophils/100 WBC (Bld)3.82 %[facility] MONTGOMERYWBC other (Bld) [#/Vol]4.5B[facility]PITAL AND NURSING HOMECBC with Diffon 62-70-1554Ljs. Bands0.18 k/uLNormal0.0-1.0[facility] HospitalComment on above:Performed By: #### COVRB #### [facility] [address] [place] [address] Motorcycle Deliverer: Tony Eugene. BasophilNormal0.0-0.2MTrumbull Memorial Hospital Comment on above:Performed By: #### COVRB #### [facility] [address] [place] [address] Motorcycle Deliverer: Tony Eugene. EosinophilNormal0.0-0.4[facility] Comment on above:Performed By: #### COVRB #### [facility] [address] [place] [address] Motorcycle Deliverer: MDAbs. JabierImm.GranulocyteNormal0.00-0.30[facility] HospitalComment on above:Performed By: #### COVRB #### [facility] [address] [place] [address] Motorcycle Deliverer: Tony Eugene.Neutrophil (Seg)3.82 k/uLNormal2.5-7.0[facility] HospitalComment on above:Performed By: #### COVRB #### [facility] [address] [place] [address] Motorcycle Deliverer: Christian Muir MDBands4 %Normal0-10[facility] HospitalComment on above:Performed By: #### COVRB #### [facility] [address] [place] [address] Motorcycle Deliverer: Christian Muir MDBasophilNormal0-2MTrumbull Memorial HospitalComment on above:Performed By: #### COVRB #### [facility] [address] [place] [address] Motorcycle Deliverer: FRANCISCO EugeneosinophilNormal0-5[facility] HospitalComment on above:Performed By: #### COVRB #### [facility] [address] [place], [place] [id number] Motorcycle Deliverer: Henrry Eugene AqnhdxfqclqNipvve4Obcwq [facility] Comment on above:Performed By: #### COVRB #### [facility] [address] [place], [place] [phone] (626) Motorcycle Deliverer: Christian Muir MDLymphocytes (Bld) [#/Vol]0.23 10*3/uLLow1.0-4.8 [facility] HospitalComment on above:Performed By: #### COVRB #### [facility] [address] [place], [place] [id number] Motorcycle Deliverer: Marilyn Eugenemphocytes/100 WBC (Bld)5 %Ayo19-85JtprbDayton Osteopathic HospitalComment on above:Performed By: #### COVRB #### [facility] [address] [place] [id number] Motorcycle Deliverer: KATIE Eugeneonocytes (Bld) [#/Vol]0.27 10*3/uLNormal0.0-1.0 [facility] HospitalComment on above:Performed By: #### COVRB #### [facility] [address] [place], [place] [id number] Motorcycle Deliverer: KATIE Eugeneonocytes/100 WBC (Bld)6 %Normal4-8[facility] HospitalComment on above:Performed By: #### COVRB #### [facility] [address] [place] [address] Motorcycle Deliverer: KATIE Eugeneorphology Igor (Bld) [Interp]Platelet morphology normal.NormalDayton Osteopathic HospitalComment on above:Result Comment: RBC morphology normal. Manual Differential PerformedPerformed By: #### COVRB #### [facility] [address] [place], [place] [id number] Motorcycle Deliverer: Christian Sturtz, MDNeutrophil (Seg)85 %Ddoi51-19LvxedDayton Osteopathic HospitalComment on above:Performed By: #### COVRB #### [facility] [address] [place] [address] Motorcycle Deliverer: Christian Muir MDErythrocyte distribution width (RBC) [Ratio]14.7 % Ljiosx47.1-15.2MTrumbull Memorial HospitalComment on above:Performed By: #### COVRB #### [facility] [address] [place] [id number] Motorcycle Deliverer: Christian Muir MDHematocrit (Bld) [Volume fraction]39.4 %Normal 36.0-46.0Day[facility] Osteopathic HospitalComment on above:Performed By: #### COVRB #### [facility] [address] [place] [id number] Motorcycle Deliverer: Christian Muir MDHemoglobin (Bld) [Mass/Vol]12.9 g/dLNormal 12.0-16.0Day[facility] Osteopathic HospitalComment on above:Performed By: #### COVRB #### [facility] [address] [place] [address] Motorcycle Deliverer: KATIE EugeneCH (RBC) [Entitic mass]30.6 gaSsccwu34.0-34.0 [facility] Osteopathic HospitalComment on above:Performed By: #### COVRB #### [facility] [address] [place] [id number] Motorcycle Deliverer: KATIE EugeneCHC (RBC) [Mass/Vol]32.7 g/gBInomzo19.0-37.0Day[facility] Osteopathic HospitalComment on above:Performed By: #### COVRB #### [facility] [address] [place], [place] [id number] Motorcycle Deliverer: KATIE EugeneCV (RBC) [Entitic vol]93.4 zRHcazdn74.0-100.0 [facility] Memorial Hospitalment on above:Performed By: #### COVRB #### [facility] [address] [place], [place] [phone] (906) Motorcycle Deliverer: Juan Eugene mean volume (Bld) [Entitic vol]9.4 fL Normal6.0-12.0Day[facility] Osteopathic HospitalComment on above:Performed By: #### COVRB #### [facility] [address] [place] [address] Motorcycle Deliverer: Chanell Eugene (Bld) [#/Vol]152 10*3/pJLznsnu578-487 [facility]opathic HospitalComment on above:Performed By: #### COVRB #### [facility] [address] [place] [address] Motorcycle Deliverer: JOHANNA EugeneBC (Bld) [#/Vol]4.22 10*6/uLNormal4.00-5.20Day[facility] Osteopathic HospitalComment on above:Performed By: #### COVRB #### [facility] [address] [place] [id number] Motorcycle Deliverer: ANSON Eugene (Bld) [#/Vol]4.5 10*3/uLNormal3.5-11.0[facility] Osteopathic HospitalCombronson lakeview hospital on above:Performed By: #### COVRB #### [facility] [address] [place] [id number] Motorcycle Deliverer: JAUN Eugeneomp Metabolic Profon 43-30-7861Famxpwr [Mass/Vol] 3.9 g/dLNormal3.5-5.2MTrumbull Memorial HospitalComment on above:Performed By: #### CARLOS SIMMS, CP #### [facility] [address] [place] [id number] Motorcycle Deliverer: Christian Sturtz, MDAlkaline Phos49 U/PRvbbhw58-884DmtuhDayton Osteopathic HospitalComment on above:Performed By: #### CARLOS SIMMS, CP #### [facility] [address] [place] [address] Motorcycle Deliverer: Christian Muir MDALT [Catalytic activity/Vol]12 U/LNormal5-33Day[facility] Osteopathic HospitalComment on above:Performed By: #### CARLOS SIMMS, CP #### [facility] [address] [place] [address] Motorcycle Deliverer: Christian Muir MDAnion gap [Moles/Vol]15 mmol/LNormal9-17Day[facility] Osteopathic HospitalComment on above:Performed By: #### CARLOS SIMMS, CP #### [facility] [address] [place] [address] Motorcycle Deliverer: Christian Muir MDAST [Catalytic activity/Vol]15 U/LNormal<32Day[facility] Osteopathic HospitalComment on above:Performed By: #### CARLOS SIMMS, CP #### [facility] [address] [place] [address] Motorcycle Deliverer: Christian Muir MDBilirubin [Mass/Vol]0.4 mg/dLNormal0.3-1.2MTrumbull Memorial HospitalComment on above:Performed By: #### CARLOS SIMMS, CP #### [facility] [address] [place] [address] Motorcycle Deliverer: Christian Muir MDBUN/CRE Ietnv69Pvdl2-73ApzbeDayton Osteopathic Hospital Comment on above:Performed By: #### CARLOS SIMMS, CP #### [facility] [address] [place] [phone] Motorcycle Deliverer: JAUN Eugenealcium [Mass/Vol]8.9 mg/dLNormal8.6-10.4Day[facility] Osteopathic HospitalComment on above:Performed By: #### CARLOS SIMMS, CP #### [facility] [address] [place], [place] [address] Motorcycle Deliverer: JAUN Eugenehloride [Moles/Vol]107 mmol/QGiakuy42-438UbaekDayton Osteopathic HospitalCombronson lakeview hospital on above:Performed By: #### CARLOS SIMMS, CP #### [facility] [address] [place], [place] [address] Motorcycle Deliverer: JAUN EugeneO2 [Moles/Vol]17 mmol/OHht34-31YvfhkDayton Osteopathic HospitalComment on above:Performed By: #### CARLOS SIMMS, CP #### [facility] [address] [place] [address] Motorcycle Deliverer: JAUN Eugenereatinine [Mass/Vol]1.1 mg/dLHigh0.5-0.9Day[facility] Osteopathic HospitalComment on above:Performed By: #### CARLOS SIMMS, CP #### [facility] [address] [place] [phone] Motorcycle Deliverer: Christian Muir MDGFR/1.73 sq M.predicted among non-blacks MDRD (S/P/Bld) [Vol rate/Area]51 mL/min/{1.73_m2}Low>60Day[facility] Osteopathic HospitalComment on above:Result Comment: These results are not intended for [...] or following therapy that affects renal tubular secretion.Performed By: #### CARLOS SIMMS, CP #### [facility] [address] [place], [place] [address] Motorcycle Deliverer: Christian Muir MDGlucose [Mass/Vol]136 mg/tQVkse76-10VcalaTrumbull Memorial HospitalComment on above:Performed By: #### CARLOS SIMMS, CP #### [facility] [address] [place] [address] Motorcycle Deliverer: Christian Muir MDPotassium [Moles/Vol]3.6 mmol/LLow3.7-5.3MTrumbull Memorial HospitalComment on above:Performed By: #### CARLOS SIMMS, CP #### [facility] [address] [place] [phone] Motorcycle Deliverer: Christian Muir MDProtein [Mass/Vol]6.6 g/dLNormal6.4-8.3MTrumbull Memorial HospitalComment on above:Performed By: #### CARLOS SIMMS, CP #### [facility] [address] [place] [address] Motorcycle Deliverer: Christian Muir MDSodium [Moles/Vol]139 mmol/BQkowhz202-218EsgysDayton Osteopathic HospitalComment on above:Performed By: #### CARLOS SIMMS, CP #### [facility] [address] [place] [phone] Motorcycle Deliverer: Christian Muir MDUrea nitrogen [Mass/Vol]32 mg/dLHigh8-23Day[facility] Osteopathic HospitalComment on above:Performed By: #### CARLOS SIMMS, CP #### [facility] [address] [place] [phone] Motorcycle Deliverer: JAUN Eugeneomprehensive Metabolic Panelon 35-98-5310Xgcmjkv [Mass/Vol]3.9 g/dL3.5 - 5.2 g/dLBON SECP & [facility] SUR[facility]ERY CENTER HEALTHALP [Catalytic activity/Vol]49 U/L35 - 104 U/LBON [facility] HEALTHALT [Catalytic activity/Vol]12 U/L5 - 33 U/LBON [facility]ITALOURS WESTERN RESERVE HOSPITALAnion gap [Moles/Vol]15 mmol/L9 - 17 mmol/LBON [facility] HEALTHAST [Catalytic activity/Vol]15 U/L NINF - 32 U/LBON [facility] HOSPITALBilirubin [Mass/Vol]0.4 mg/dL0.3 - 1.2 mg/dLBON [facility] HOSPITALCalcium [Mass/Vol]8.9 mg/dL8.6 - 10.4 mg/dLBON [facility]NT[facility] HOSPITALChloride [Moles/Vol]107 mmol/L98 - 107 mmol/LBON [facility] ONT[facility] HOSPITALCO2 [Moles/Vol]17 mmol/LLow20 - 31 mmol/LBON [facility] Creatinine [Mass/Vol]1.1 mg/dLHigh0.5 - 0.9 mg/dLBON [facility] GFR/1.73 sq M.predicted MDRD (S/P/Bld) [Vol rate/Area]51 mL/min/{1.73_m2}Low- PINFBON [facility] SYSTEM ONTARIO HOSPITALComment on above: These results are not intended [...] therapy that affects renal tubular secretion. Glucose [Mass/Vol]136 mg/wMNtor42 - 99 mg/dLBON [facility] Interpretation and review of laboratory resultsAbnormalLEWISGALE HOSPITAL [facility] Potassium [Moles/Vol]3.6 mmol/LLow3.7 - 5.3 mmol/LBON [facility] Protein [Mass/Vol]6.6 g/dL6.4 - 8.3 g/dLBON [facility] SYSTEM ONT[facility]IO HOSPITALSodium [Moles/Vol]139 mmol/L135 - 144 mmol/LBON [facility]NTARIO HOSPITALUrea nitrogen [Mass/Vol]32 mg/dLHigh8 - 23 mg/dLBON [facility] SYSTEM ONTARIO HOSPITALUrea nitrogen/Creatinine [Mass ratio]29 mg/mgHigh9 - 20BON [facility] HOSPITALBON [facility] HOSPITALMicroscopic Urinalysison 10-23-2023-[facility] Bacteria LM Ql (Urine sed)RAREAbnormalNoneBON [facility] SYSTEM ONTARIO HOSPITALEpithelial cells LM.HPF (Urine sed) [#/Area]5 TO 10/HPFBON [facility] Interpretation and review of laboratory resultsAbnormHospital Corporation of America RBC LM.HPF (Urine sed) [#/Area]2 TO 5BON [facility] SYSTEM ONTARIO HOSPITALWBC LM.HPF (Urine sed) [#/Area]NONE SEEN0 /HPFBON [facility] Troponinon 50-50-5062Uiijwqedshdgug and review of laboratory resultsAbnormCarilion Franklin Memorial Hospitaloponin I.cardiac High sensitivity method [Mass/Vol]19 ng/L High0 - 14 ng/LBON [facility]NTARIO HOSPITALCombronson lakeview hospital on above:High Sensitivity Troponin values cannot be compared with other Troponin methodologies.[facility] Medical Centernin, High Sens19 ng/LHigh0-14Day[facility] Osteopathic HospitalCombronson lakeview hospital on above:Result Comment: High Sensitivity Troponin values cannot be compared with other Troponin methodologies.Performed By: #### COVRB #### [facility] [address] [place], [place] [phone] Motorcycle Deliverer: Christian Muir MDInterpretation and review of laboratory results AbnormalCJW Medical Centern I.cardiac High sensitivity method [Mass/Vol]15 ng/LHigh0 - 14 ng/LBON [facility] on above:High Sensitivity Troponin values cannot be compared with other Troponin methodologies.[facility] Centernin, High Sens15 ng/LHigh0-14[facility] HospitalCombronson lakeview hospital on above:Result Comment: High Sensitivity Troponin values cannot be compared with other Troponin methodologies.Performed By: #### COVRB #### [facility] [address] [place] [phone] Motorcycle Deliverer: CHELSEA Eugene w/Reflex Cultureon 61-26-3213Aacoylcew, SemiQt,UrNegativeNormalNEGDayton Osteopathic HospitalCombronson lakeview hospital on above:Performed By: #### FLUABA #### [facility] [address] [place] [phone] Motorcycle Deliverer: Christian Muir MDBlood, Urine2+AbnormalNEGDayton Osteopathic Hospital Comment on above:Performed By: #### FLUABA #### [facility] [address] [place] [address] Motorcycle Deliverer: JAUN Eugenelarity ()ClearNormalCLEARDayton Osteopathic Hospital Comment on above:Performed By: #### FLUABA #### [facility] [address] [place] [address] Motorcycle Deliverer: JAUN Eugeneolor (U)YellowNormalYCleveland Clinic [facility] Comment on above:Performed By: #### FLUABA #### [facility] [address] [place] [address] Motorcycle Deliverer: JAUN EugeneommentNoMercy Health Willard HospitalComment on above:Performed By: #### FLUABA #### [facility] [address] [place] [address] Motorcycle Deliverer: Christian Muir MDGlucose Ql (U)NegativeNormalNEGDayton Osteopathic HospitalComment on above:Performed By: #### FLUABA #### [facility] [address] [place] [address] Motorcycle Deliverer: Christian Muir MDKetones Ql (U)TRACEAbnormalNEGDayton Osteopathic HospitalComment on above:Performed By: #### FLUABA #### [facility] [address] [place] [address] Motorcycle Deliverer: Christian Muir MDLeukocyte esterase Test strip Ql (U)NegativeNormal NEGDayton Osteopathic HospitalComment on above:Performed By: #### FLUABA #### [facility] [address] [place] [address] Motorcycle Deliverer: Christian Muir MDNitrite,UrNegativeOhioHealth Pickerington Methodist Hospital Comment on above:Performed By: #### FLUABA #### [facility] [address] [place] [address] Motorcycle Deliverer: ROBERT Eugene,Ur5.0Caqmsc1.0-8.0Day[facility] Osteopathic HospitalCombronson lakeview hospital on above:Performed By: #### FLUABA #### [facility] [address] [place] [address] Motorcycle Deliverer: ROBERT Eugenerotein Ql (U)1+ mg/dLAbnormalNEGDayton Osteopathic HospitalCombronson lakeview hospital on above:Performed By: #### FLUABA #### [facility] [address] [place] [address] Motorcycle Deliverer: ROSALIO Eugenepec. [place],Ur1.191Zaywbj6.005-1.030[facility] Osteopathic HospitalCombronson lakeview hospital on above:Performed By: #### FLUABA #### [facility] [address] [place] [id number] Motorcycle Deliverer: Christian Muir MDUrobilinogen,UrNormalNormal0.0-1.0[facility]opathic HospitalCombronson lakeview hospital on above:Performed By: #### FLUABA #### [facility] [address] [place] [phone] Motorcycle Deliverer: Christian Muir MDUrinalysis with Reflex to Cultureon 10-23-2023 Bilirubin Ql (U)NegativeNEGATIVEBON [facility]P [facility] HEALTHClarity (U)ClearClearBON SECMAIN CAMPUS MEDICAL CENTERColor (U)YellowYellowBON SECMAIN CAMPUS MEDICAL CENTERCommentBON [facility]IO HOSPITALGlucose Test strip (U) [Mass/Vol]NegativeNEGATIVE mg/dLBON SECMAIN CAMPUS MEDICAL CENTERHemoglobin Auto test strip Ql (U)2+AbnormalNEGATIVEBON [facility] - [facility] HEALTHInterpretation and review of laboratory resultsAbnormalB[facility] HEALTHKetones (U) [Mass/Vol]TRACEAbnormalNEGATIVE mg/dLBON SECMAIN CAMPUS MEDICAL CENTERLeukocyte esterase Test strip Ql (U)NegativeNEGATIVEBON [facility]P [facility] HEALTHNitrite Ql (U)NegativeNEGATIVEBON [facility] SYSTEM ONTARIO HOSPITALpH (U)5.0 [pH] 5.0 - 8.0B[facility] - [facility] HEALTHProtein (U) [Mass/Vol]1+AbnormalNEGATIVE mg/dL [facility] MONTGOMERYSpecific gravity (U) [Rel density]1.0201.005 - 1.030BON [facility]NT[facility]IO HOSPITALUrobilinogen Qn (U)Normal0.0 - 1.0 EU/dLBON B[facility] COUNTY [facility] AND NURSING HOMEUrinalysis,Microon 10-23-2023-----[facility] City HospitalComment on above:Performed By: #### FLUABA #### [facility] [address] [place] [address] Motorcycle Deliverer: Christian Muir MDBacteriaRACleveland Clinic Children's Hospital for Rehabilitation Comment on above:Performed By: #### FLUABA #### [facility] [address] [place] [address] Motorcycle Deliverer: Christian Muir MDEpithelial cells LM Ql (Urine sed)5 TO 10NoOhioHealth Grady Memorial HospitalComment on above:Performed By: #### FLUABA #### [facility] [address] [place] [phone] Motorcycle Deliverer: Christian Muir MDUrine RBC's2 TO 3Rrrwiv9-5U[address] Comment on above:Performed By: #### FLUABA #### [facility] [address] [place] [phone] Motorcycle Deliverer: Christian Muir MDUrine WBC'sNONE VGZWXgmedr0Zxchx[address] Comment on above:Performed By: #### FLUABA #### [facility] [address] [place] [phone] Motorcycle Deliverer: Christian Muir MDBUN + Creatinineon 38-95-3110Tmktdamyts [Mass/Vol] 1.2 mg/dLHigh0.5-0.9Day[facility] HospitalComment on above:Performed By: #### BUNCRT #### [facility] [address] [place] [address] Motorcycle Deliverer: Christian Muir MDGFR/1.73 sq M.predicted among non-blacks MDRD (S/P/Bld) [Vol rate/Area]46 mL/min/{1.73_m2}Low>60Day[facility]opathic HospitalComment on above:Result Comment: These results are not intended for [...] or following therapy that affects renal tubular secretion.Performed By: #### BUNCRT #### [facility] [address] [place] [address] Motorcycle Deliverer: Christian Muir MDUrea nitrogen [Mass/Vol]35 mg/dLHigh8-[facility]opathic HospitalComment on above:Performed By: #### BUNCRT #### [facility] [address] [place] [address] Motorcycle Deliverer: ADRIAN Eugene UROGRAMon 22-23-3676FY UROGRAMEXAM: CT UROGRAM HISTORY: Gross hematuria COMPARISON: CT [...] by: Ishmael Valentin Jr., MD 10/22/23 Final resultNormalDayton Osteopathic HospitalCult,Urineon 26-35-9958Heol,Urine Specimen Description .CLEAN CATCH URINE Culture ESCHERICHIA [...] <=4 SUSCEPTIBLE Tobramycin <=1 SUSCEPTIBLE Trimethoprim/Sulfa <=20 SUSCEPTIBLESusceptibleDayton Osteopathic HospitalComment on above:Performed By: #### FLUABA #### [facility] [address] [place] [address] Motorcycle Deliverer: Christian Muir MDUrinalysis w/ Microon 10-01-2023-----NormalDayton Osteopathic HospitalComment on above:Performed By: #### UAMIC #### [facility] [address] [place] [phone] Motorcycle Deliverer: Christian Muir MDBacteria2+AbnormalNONEMeTriHealth McCullough-Hyde Memorial Hospital Comment on above:Performed By: #### UAMIC #### [facility] [address] [place] [address] Motorcycle Deliverer: Christian Muir MDBilirubin, SemiQt,UrNegativeNormalNEGDayton Osteopathic HospitalComment on above:Performed By: #### UAMIC #### [facility] [address] [place], [place] [id number] Motorcycle Deliverer: Christian Muir MDBlood, Urine2+AbnormalNEGDayton Osteopathic Hospital Comment on above:Performed By: #### UAMIC #### [facility] [address] [place], [place] [address] Motorcycle Deliverer: JAUN Eugenelarity (U)CloudyAbnormalCLEARMercCommunity Hospital of San BernardinoComment on above:Performed By: #### UAMIC #### [facility] [address] [place], [place] [address] Motorcycle Deliverer: JAUN Eugeneolor ()YellowNoalYCleveland Clinic Hillcrest Hospital Comment on above:Performed By: #### UAMIC #### [facility] [address] [place], [place] [address] Motorcycle Deliverer: JAUN EugeneommentNormSt. Mary's Medical CenterComment on above:Performed By: #### UAMIC #### [facility] [address] [place], [place] [phone] Motorcycle Deliverer: Christian Muir MDEpithelial cells LM Ql (Urine sed)2 TO 5Normal [facility] HospitalComment on above:Performed By: #### UAMIC #### [facility] [address] [place], [place] [phone] Motorcycle Deliverer: Christian Muir MDGlucose Ql (U)NegativeNormalNEGDayton Osteopathic HospitalComment on above:Performed By: #### UAMIC #### [facility] [address] [place], [place] [phone] Motorcycle Deliverer: Christian Muir MDKetones Ql (U)NegativeNormalNEGDayton Osteopathic HospitalComment on above:Performed By: #### UAMIC #### [facility] [address] [place], [place] [address] Motorcycle Deliverer: Christian Muir MDLeukocyte esterase Test strip Ql (U)3+AbnormalNEG [facility]opathic HospitalComment on above:Performed By: #### UAMIC #### [facility] [address] [place] [address] Motorcycle Deliverer: Shelli Eugenetrite,UrNegativeNoUniversity Hospitals [facility]ar[facility] Comment on above:Performed By: #### UAMIC #### [facility] [address] [place] [address] Motorcycle Deliverer: ROBERT Eugene,Ur6.3Setdao2.0-8.0Day[facility]opathic HospitalComment on above:Performed By: #### UAMIC #### [facility] [address] [place] [address] Motorcycle Deliverer: ROBERT Eugenerotein Ql (U)TRACEAbnormalNEGDayton Osteopathic HospitalComment on above:Performed By: #### UAMIC #### [facility] [address] [place] [address] Motorcycle Deliverer: ROSALIO Eugenepec. [place],Ur1.639Pgauyg2.005-1.030[facility]opathic HospitalComment on above:Performed By: #### UAMIC #### [facility] [address] [place] [address] Motorcycle Deliverer: Deandre Eugene RBC's10 TO 32Xyhgcn0-5IvwbjTrumbull Memorial Hospital Comment on above:Performed By: #### UAMIC #### [facility] [address] [place] [address] Motorcycle Deliverer: Deandre Eugene WBC's20 TO 34Qkfzhw7ZjachDayton Osteopathic Hospital Comment on above:Performed By: #### UAMIC #### [facility] [address] [place], [place] [address] Motorcycle Deliverer: Tahir Eugenebilinogen,UrNormalNormal0.0-1.0Day[facility]opathic HospitalComment on above:Performed By: #### UAMIC #### [facility] [address] [place] [address] Motorcycle Deliverer: Chrsitian Muir MDIntraOperative Documentson 09-23-2023 IntraOperative [id number]#1.00TIFFNormal Trinity Health SystemResult Letter Officeon [phone] Letter Office September 23, 2023 [address]ARY JANE [address] [place] [address] : 1945 Below is a summary of [...] if you wish to make an appointment. [facility] [phone] Health SystemAlanine aminotransferase [Enzymatic activity/volume] in Serum or PlasmaOrdered By: Nuvia Sanchez on 48-71-2166PBY [Catalytic activity/Vol]12 U/L7-52[facility] Health AdministrationAlbumin [Mass/volume] in Serum or Plasma by Bromocresol green (BCG) dye binding metho Ordered By: Nuvia Sanchez on 74-94-8355Ptsaitu BCG dye [Mass/Vol]3.9 g/dL 3.5-5.7FFairfield Medical CenterAlkaline phosphatase [Enzymatic activity/volume] in Serum or PlasmaOrdered By: Nuvia Sanchez on 14-78-2291BVH [Catalytic activity/Vol]59 U/V26-543BtatjfqnrVeterans Health AdministrationAspartate aminotransferase [Enzymatic activity/volume] in Serum or PlasmaOrdered By: Nuvia Sanchez on 47-00-9719YOE [Catalytic activity/Vol]13 U/M16-98WmcpkxdwmVeterans Health AdministrationAutomated erythrocytes count in urine sediment (number/area) Ordered By: Nuvia Sanchez on 79-57-4083ZQC Auto (Urine sed) [#/Area]0-1 [HPF] 0-4FFairfield Medical CenterAutomated leukocytes count in urine sediment (number/area)Ordered By: Nuvia Sanchez on 87-17-7879FAB Auto (Urine sed) [#/Area]None seen [HPF]0-4FFairfield Medical CenterBasophils Auto (Bld) [#/Vol]Ordered By: Nuvia Sanchez on 64-11-6203Ohesxdxrw (Bld) [#/Vol]0.0 10*3/uL0.0-0.2FFairfield Medical CenterBasophils/100 WBC Auto (Bld) Ordered By: Nuvia Sanchez on 69-39-8663Whsgeifpd/100 WBC (Bld)0.3 %.V[facility] Health AdministrationBilirubin Test strip Ql (U)Ordered By: Nuvia Sanchez on 55-35-1447Hlrdwrdja Ql (U)NegativeNegativeVeterans Health Administration Bilirubin.total [Mass/volume] in Serum or PlasmaOrdered By: Nuvia Sanchez on 20-27-1123Rdurapuuj [Mass/Vol]0.2 mg/dL0.3-1.0[facility] Calcium [Mass/volume] in Serum or PlasmaOrdered By: Nuvia Sanchez on 09-19-2023 Calcium [Mass/Vol]8.6 mg/dL8.6-10.3FFairfield Medical CenterCarbon dioxide, total [Moles/volume] in Serum or PlasmaOrdered By: Nuvia Sanchez on 87-16-9184GK0 [Moles/Vol]24.3 mmol/L21.0-31.0[facility] Chloride [Moles/volume] in Serum or PlasmaOrdered By: Nuvia Sanchez on 61-13-8422Oranneik [Moles/Vol]107 mmol/V38-070FkruvinfqVeterans Health Administration Color Auto (U)Ordered By: Nuvia Sanchez on 75-84-6516Aynqt (U)YellowYellow Veterans Health AdministrationCreatinine [Mass/volume] in Serum or Plasma Ordered By: Nuvia Sanchez on 38-48-9650Gndbmfturr [Mass/Vol]1.35 mg/dL0.60-1.20 [facility] Health AdministrationEosinophils Auto (Bld) [#/Vol]Ordered By: Nuvia Sanchez on 03-41-6572Nbwxlipyfuh (Bld) [#/Vol]0.1 10*3/uL0.0-0.45[facility] AdministrationEosinophils/100 WBC Auto (Bld)Ordered By: Nuvia Sanchez on 10-86-4549Jabcnfauacw/100 WBC (Bld)0.8 %.[facility] Erythrocyte distribution width Auto (RBC) [Ratio]Ordered By: Nuvia Sanchez on 85-79-0725Omymdoayuqt distribution width (RBC) [Ratio]15.2 %11.9-15.3FFairfield Medical CenterErythrocyte sedimentation rate by Photometric method Ordered By: Nuvia Sanchez on 80-86-9115WAX Photometric method (Bld) [Velocity] 15 mm/hr0-29[facility] Health AdministrationGlobulin Calc (S) [Mass/Vol]Ordered By: Nuvia Sanchez on 01-91-3251Pktgisqy (S) [Mass/Vol]2.2 g/dLVeterans Health AdministrationGlucose [Mass/volume] in Serum or PlasmaOrdered By: Nuvia Sanchez on 73-39-4419Dgfdfth [Mass/Vol]84 mg/cC33-211FrokatqjzVeterans Health AdministrationComment on above:ADA recommended reference rangeRandom Glucose Reference Range is dependent on time and content of last meal. Glucose of more than 200 mg/dL in a nonstressed, ambulatory subject supports the diagnosisof Diabetes Mellitus.Hematocrit Auto (Bld) [Volume fraction]Ordered By: Nuvia Sanchez on 09-81-6715Rdgqsnkauo (Bld) [Volume fraction]34.5 %34.0-46.4 [facility] AdministrationHemoglobin [Mass/volume] in BloodOrdered By: Nuvia Sanchez on 40-60-4871Mqzskktcdy (Bld) [Mass/Vol]11.4 g/dL11.8-15.4 [facility] AdministrationKetones Auto test strip (U) [Mass/Vol]Ordered By: Nuvia Sanchez on 98-18-7489Ggxzfnq (U) [Mass/Vol]NegativeNegativeVeterans Health AdministrationLaboratory - UrinalysisOrdered By: Nuvia Sanchez on 35-48-9424Olunztt casts LM Ql (Urine sed)0-8 [LPF]0-8[facility] AdministrationLeukocytes [#/volume] corrected for nucleated erythrocytes in Blood by Automated counOrdered By: Nuvia Sanchez on 22-86-6864JRF corrected for nucl RBC Auto (Bld) [#/Vol]8.9 10*3/uL3.8-11.6FFairfield Medical Center Lymphocytes Auto (Bld) [#/Vol]Ordered By: Nuvia Sanchez on 09-19-2023 Lymphocytes (Bld) [#/Vol]1.6 10*3/uL1.00-4.8[facility] Lymphocytes/100 WBC Auto (Bld)Ordered By: Nuvia Sanchez on 09-19-2023 Lymphocytes/100 WBC (Bld)18.2 %.[facility] Auto (RBC) [Entitic mass]Ordered By: Nuvia Sanchez on 87-63-7874ACO (RBC) [Entitic mass] 30.4 pg24.7-34.3FFairfield Medical CenterMCHC Auto (RBC) [Mass/Vol] Ordered By: Nuvia Sanchez on 66-68-6308KYGA (RBC) [Mass/Vol]33.2 g/dL32.0-35.0 [facility] AdministrationMCV Auto (RBC) [Entitic vol]Ordered By: Nuvia Sanchez on 21-69-1107VTI (RBC) [Entitic vol]91.6 iF93-548XyteuykqvVeterans Health AdministrationMonocytes Auto (Bld) [#/Vol]Ordered By: Nuvia Sanchez on 47-88-1653Emrpeutuh (Bld) [#/Vol]0.6 10*3/uL0.0-0.8[facility] AdministrationMonocytes/100 WBC Auto (Bld)Ordered By: Nuvia Sanchez on 09-19-2023 Monocytes/100 WBC (Bld)6.5 %.[facility] AdministrationNeutrophils Auto (Bld) [#/Vol]Ordered By: Nuvia Sanchez on 82-39-2512Ffowdrhdxjc (Bld) [#/Vol] 6.6 10*3/uL1.8-7.7FFairfield Medical CenterNeutrophils/100 WBC Auto (Bld)Ordered By: Nuiva Sanchez on 12-11-1246Obarexkjdmj/100 WBC (Bld)74.2 %. [facility] Health AdministrationNitrite Test strip Ql (U)Ordered By: Nuvia Sanchez on 35-22-7900Xyoarpc Ql (U)NegativeNegativeVeterans Health AdministrationNo Panel InformationOrdered By: Nuvia Sanchez on 48-59-0472Owqshubck GFR (CKD-EPI)40.226 mL/MinVeterans Health AdministrationPharmacy Creatinine Clearance (ChemN/AFFairfield Medical CenterNucleated erythrocytes [Presence] in Blood by Automated countOrdered By: Nuvia Sanchez on 09-19-2023 Nucleated RBC Auto Ql (Bld)0.1 /100{WBC}0-0.5FFairfield Medical Center Platelet mean volume Auto (Bld) [Entitic vol]Ordered By: Nuvia Sanchez on 45-62-0935Jzwcunni mean volume (Bld) [Entitic vol]8.6 fL6.3-10.7FFairfield Medical CenterPlatelets Auto (Bld) [#/Vol]Ordered By: Nuvia Sanchez on 64-57-8447Ubqtpnchk (Bld) [#/Vol]214 10*3/pG801-560SrdphvlcnVeterans Health AdministrationPotassium [Moles/volume] in Serum or PlasmaOrdered By: Nuvia Sanchez on 37-98-2700Yakcufmdj [Moles/Vol]4.2 mmol/L3.5-5.1FFairfield Medical CenterProtein Auto test strip (U) [Mass/Vol]Ordered By: Nuvia Sanchez on 58-45-8000Reznarb (U) [Mass/Vol]NegativeNegativeVeterans Health AdministrationProtein [Mass/volume] in Serum or PlasmaOrdered By: Nuvia Sanchez on 35-00-9547Blcggne [Mass/Vol]6.1 g/dL6.4-8.9[facility] AdministrationRBC Auto (Bld) [#/Vol]Ordered By: Nuvia Sanchez on 82-69-9620AFK (Bld) [#/Vol]3.76 10*6/uL3.60-5.00[facility] Easterum or plasma albumin/globulin mass ratioOrdered By: Nuvia Sanchez on 09-19-2023 Albumin/Globulin [Mass ratio]1.8 {ratio}[facility] Easterum or plasma anion gap determinationOrdered By: Nuvia Sanchez on 47-80-0446Oqkic gap [Moles/Vol]9.9 mmol/L6.0-15.0[facility] Eastodium [Moles/volume] in Serum or PlasmaOrdered By: Nuvia Sanchez on 57-86-0239Qyfoel [Moles/Vol]137 mmol/W390-298CorubjipnRegency Hospital Cleveland Eastpecific gravity Auto test strip (U) [Rel density]Ordered By: Nuvia Sanchez on 09-19-2023 Specific gravity (U) [Rel density]1.0111.001-1.030[facility] Eastquamous epithelial cells detection in urine sediment by light microscopy Ordered By: Nuvia Sanchez on 88-12-4846Tgyvwzjtkv cells.squamous LM Ql (Urine sed)None seen [HPF]0-2FFairfield Medical CenterUrea nitrogen [Mass/volume] in Serum or PlasmaOrdered By: Nuvia Sanchez on 10-76-8840Rgok nitrogen [Mass/Vol]32 mg/dL7-25[facility] AdministrationUrine bacteria detection by automated methodOrdered By: Nuvia Sanchez on 32-78-7294Mexmjbkx Auto Ql (U)None seenNone SeenVeterans Health AdministrationUrine clarity by refractometry automatedOrdered By: Nuvia Sanchez on 38-18-5277Nejmfsr Refractometry automated (U)ClearClearFFairfield Medical CenterUrine glucose measurement by automated test strip (mass/volume)Ordered By: Nuvia Sanchez on 08-46-9788Buopidq Auto test strip (U) [Mass/Vol]Normal mg/dLGerman HospitalUrine hemoglobin detection by automated test stripOrdered By: Nuvia Sanchez on 47-68-9305Gmcxfrkvym Auto test strip Ql (U) NegativeNegGrant HospitalUrine leukocyte esterase detection by automated test stripOrdered By: Nuvia Sanchez on 09-19-2023 Leukocyte esterase Auto test strip Ql (U)NegativeNegGrant HospitalUrobilinogen Auto test strip (U) [Mass/Vol]Ordered By: Nuvia Sanchez on 22-96-3974Jikwkbfuveod (U) [Mass/Vol]Normal mg/dLUpper Valley Medical CenterWBC Auto (Bld) [#/Vol]Ordered By: Nuvia Sanchez on 16-01-4297AJA (Bld) [#/Vol]8.9 10*3/uL3.8-11.6FFairfield Medical Center pH Auto test strip (U)Ordered By: Nuvia Sanchez on 34-39-2228oI (U)6.0 [pH] 5.0-9.0[facility] AdministrationConsenton 79-09-4542Miexpij [id number]#1.00TIFFDayton Children's HospitalDischarge Instructionson 81-58-1914Vhqephzuj Instructions [id number]#1.00TIFFDayton Children's HospitalMain OR Intraoperative Recordon 39-06-0358Kktf OR Intraoperative Record IntraOp Document Type FT Summary Primary Physician: Davion Olivares MD Finalized Date/Time: 09/17/23 08:19:33 Pt. Name: MARY JANE RIOS/Sex: 1945 Female Med Rec #: [id number] Physician: Marshall STEINER, Davion Zarate Financial #: [id number] Pt. Type: O Room/Bed: / Admit/Disch: 09/16/23 [...] Beaver RN, Yong Fang Role Performed Anesthesiologist Vice President Quality Improvement - Primary Scrub - Primary Manager Urgent Care Time In 09/16/23 14:15:00 09/16/23 14:15:00 09/16/23 [...] By: Sd RN, Janell Beaver RN, Janell F 09/16/23 14:41:12 F 09/16/23 14:41:12 Perioperative [...] and tissue Entry 1 Skin Integrity Intact, Holliday, Warm, and Skin Abnormality No Dry Outcomes Met? Yes Last Modified By: Sd CAICEDO Janell F 09/16/23 14:23:55 Post-Care Text: The patient is free from signs and symptoms of injury caused by extraneous objects Patient Positioning FT Pre-Care Text: Identifies physical alterations that require additional precautions for procedure-specific positioning, verifies presence of prosthe (more content not included)...[facility] Children's HospitalPostoperative Documentson 93-84-0475Eechtoyjusrje Documents [id number]#1.00TIFFlower HospitalConsent for Treatmenton 24-29-8475Kyejryv for Treatment [id number]#1.00[facility] HospitalDischarge Instructionson 55-79-1724Ommpixzhv Instructions MARY JANE RIOS :1945 Visit Date:09/16/2023 [...] famotidine famotidine (famotidine 40 mg Tab) fexofenadine (Melania 24 Hour Allergy oral tablet) fluticasone nasal (fluticasone 0.05 mg/inh Nasal [place]) levothyroxine (levothyroxine 50 mcg (0.05 mg) Tab) loratadine (loratadine 10 mg oral capsule) multivitamin (Multiple Vitamins Tab) pantoprazole (Protonix) pilocarpine (Salagen 5 mg Tab) pravastatin psyllium (Metamucil Fibre Therapy) topiramate (Topamax) Procedure History EGD - Esophagogastroduodenoscopy (07/26/2022), Rotator cuff repair (07/28/2021), Sling procedure ofbladder neck (06/03/2019), Cystourethroscopy with dilation of urethral [...] office will call for follow up Where: [address] [place], [place] [address], [address] [address]- [phone] Business (1) Medications What How Much When Instructions Next Dose Changed famotidine 20 Milligram By Mouth Once a day (at bedtime) Changed famotidine (famotidine 40 mg Tab) 1 Tablets By Mouth Once a day (at bedtime) Pickup at [id number] Unchanged alprazolam 0.5 Milligram By Mouth At [...] day Ordered by another provider. Unchanged fexofenadine (Melania 24 Hour Allergy oral tablet) 1 Tablets By Mouth Every day Unchanged fluticasone nasal (fluticasone 0.05 mg/ inh Nasal [place]) 50 Microgram Nasal Inhalation Every day Unchanged [...] Every day Pharmacy Information (more content not included)...[facility]'s HospitalComment on above: Result Comment: Electronically Signed By: Chavez Zhou RN.linden\Date and Time Signed: 09/16/23 15:00 EDTEndoscopic Procedure Report - Otheron 09-16-2023 Endoscopic Procedure Report - OtherPatient: MARY JANE RIOS Age: 77 years Sex: [...] the left lateral decubitus position. Endoscope type usedwas an adult-size. The endoscope was lubricated then introduced through the anus. The scope was advanced to the terminal ileum. No difficulties encountered during the procedure. The bowel preparationquality was adequate (see polyps greater than or equal to 6 millimeters). The patient tolerated theprocedure well. Time to Cecum: 3 min Withdrawal time 16 min Last colonoscopy: 2016 Findings 1. Large internal hemorrhoids 2. Mild sigmoid diverticulosis 3. 3 small sessile polyps in the ascending colon, 3-5 mm in size, resected with cold snare completely and retrieved 4. Normal examined terminal ileum Images Procedure images: Rec1_hd_video_2023___46_37_190.jpg Rec_hd_video___46_08_762.jpg Rec1_hd_video___45_43_597.jpg Rec1_hd_video_2023__18T13_39_08_872.jpg Rec1_hd_video_2023__18T13_37_47_681.jpg Rec1_hd_video_2023__18T13_38_49_149.jpg Rec1_hd_video_4_03_18T13_37_11_633.jpg Rec1_hd_video_4__18T13_36_22_120.jpg Rec1_hd_video_4__18T13_35_04_408.jpg Rec1_hd_video_2023__18T13_34_51_465.jpg Rec1_hd_video_2023__18T13_33_13_757.jpg Rec1_hd_video_4__18T13_32_15_545.jpg . Post-Procedure Complications: none. Estimated blood loss: [...] 24 hours. Education and Follow-up: Counseled: Patient, Family.[facility] Children's HospitalComment on above:Result Comment: Electronically Signed By: Marshall STEINER, Davion Zarate\.br\Date and Time Signed: 09/16/23 14:42 EDTOther Comment: Missing Attachment - attachment storage system not supported [id number] Can be viewed in source system Missing Attachment - attachment storage system not supported [id number] Can be viewed in source systemMissing Attachment - attachment storage system not supported [id number] Can be viewed in source systemMissing Attachment - attachment storage system not supported [id number] Can be viewed in source systemMissing Attachment - attachment storage system not supported [id number] Can be viewed in source systemMissing Attachment - attachment storage system not supported [id number] Can be viewed in source systemMissing Attachment - attachment storage system not supported 6581194 Can be viewed in source systemMissing Attachment - attachment storage system not supported 4383839 Can be viewed in source system Missing Attachment - attachment storage system not supported 2206166 Can be viewed in source systemMissing Attachment - attachment storage system not supported 1747943 Can be viewed in source systemMissing Attachment - attachment storage system not supported 2541198 Can be viewed in source systemMissing Attachment - attachment storage system not supported 0213794 Can be viewed in source systemGastroenterology Office/Clinic Noteon 53-87-2584Aflosikhraezbzdo Office/Clinic NoteChief Complaint 6 month f/u HPI Staff Patient [...] from the antrum, incisura, gastric body and fundusto map for gastric intestinal metaplasia Pathology: A: [...] urinary stream Historical Co (more content not included)...[facility] Children's HospitalComment on above:Result Comment: Electronically Signed By: Davion Olivares MD\.br\Date and Time Signed: 09/16/23 14:16 EDTInpatient Patient Summaryon 36-62-1227Ppvwuqvad Patient Summary [address] [address] [facility] Clinical Discharge Instructions PERSON INFORMATION Name: MARY JANE RIOS PHYSICIANS Admitting Physician: Davion Olivares MD Attending Physician: Davion Olivares MD PCP: RONI DAHL MD Discharge Diagnosis: Colon polyps Comment: PATIENT EDUCATION INFORMATION Instructions: Medication Leaflets: Follow up: MEDICATION LIST Medications to Continue Taking That Have Changed [id number], [address], [place] [id number], [phone] START: famotidine (famotidine 40 mg Tab) 1 [...] a day. Ordered by another provider.. fexofenadine (Melania 24 Hour Allergy oral tablet) 1 Tablets By Mouth every day. fluticasone nasal (fluticasone 0.05 mg/inh Nasal [place]oc[place]) 50 Microgram Nasal Inhalation every day. levothyroxine [...] times a day. Ordered by another provider.., drymouth pravastatin 40 Milligram By Mouth once a day (at bedtime). psyllium (Metamucil Fibre Therapy) 1 cap By Mouth every day. topiramate (Topamax) 50 Milligram By Mouth every day. Comment:[facility]'s HospitalMain OR PACU I Recordon 29-32-5706Xfqm OR PACU I RecordPACU Phase I Document Type FT Summary Primary Physician: Davion Olivares MD Finalized Date/Time: 09/16/23 16:43:13 Pt. Name: MARY JANE RIOS/Sex: 1945 Female Med Rec #: [id number] Physician: Davion Olivares MD Financial #: [id number] Pt. Type: O Room/Bed: / Admit/Disch: 09/16/23 [...] individualized perioperative plan of care The patient's rightto privacy is maintained The patient's value system, [...] with or improved from baseline levels established preoperativelyThe patient's cardiovascular status is consistent with or improved from baseline levels established preoperatively The patient's cardiovascular status is consistent with or improved from baseline levels established preoperatively The patient demonstrates and/or reports adequate pain control throughout the perioperative period The patient received appropriate medication(s), safely administered during the perioperativeperiod Acuity Level PACU I FT Entry 1 Start Time 09/16/23 14:44:00 Stop Time 09/16/23 15:14:00 Acuity Level Acuity Level I Last Modified By: Miley Zhou RN 09/16/23 16:42:50 Finalized By: Miley Zhou RN Document Signatures Signed By: Miley Zhou RN 09/16/23 16:43NoBlanchard Valley Health [facility] HospitalMain OR Preoperative Recordon 92-06-4584Hzox OR Preoperative RecordHolding Area Document Type FT Summary Primary Physician: Davion Olivarse MD Finalized Date/Time: 09/16/23 13:10:36 Pt. Name: MARY JANE RIOS Kalin/Sex: 1945 Female Med Rec #: [id number] Physician: Davion Olivares MD Financial #: [id number] Pt. Type: O Room/Bed: / Admit/Disch: 09/16/23 [...] or her perioperative plan of care The patient'sright to privacy is maintained Surgery Checklist FT [...] Signatures Signed By: Eliza Lyn RN 09/16/23 13:10[facility] Children's HospitalMonitor Recordon 15-53-8374Tdupaup Record [id number] Luke InstituteMonitor [id number]#1.00TIFFNomachelle Trinity Health SystemOutpatient Surgery Discharge Instructionon 09-16-2023 Outpatient Surgery Discharge Instruction [place] [id number] Patient Discharge Instructions PERSON INFORMATION Name: MARY JANE RIOS Date of : 1945 Current Date: 09/16/2023 14:40:03 PHYSICIANS Admitting Physician: Marshall STEINER, Davion Zarate Discharge Diagnosis: Colon polyps BLANCA MARY JANE Payan has been given the following list of [...] was present when discharge instructions were given Patient Signature Date Clinican/Nurse Signature Date Follow up: Pharmacy Information: [facility]ivais You may receive a survey from [employer] asking you to rate your care experience. Your feedback is important and will help us understand what we do well and how we can improve the quality of care we provide to you, your loved ones and our community. It?s an honor to serve you. Thank you for choosing [facility] HERE ARE THE MEDICATION CHANGES THAT OCCURRED DURING YOUR HOSPITAL STAY Medications to Continue Taking That Have Changed [id number], [address], [place] [id number], [phone] START: famotidine (famotidine 40 mg Tab) 1 [...] a day. Ordered by another provider.. fexofenadine (Melania 24 Hour Allergy oral tablet) 1 Tablets By Mouth every day. fluticasone nasal (fluticasone 0.05 mg/inh Nasal [place]oc[place]) 50 Microgram Nasal Inhalation every day. levothyroxine [...] times a day. Ordered by another provider.., drymouth pravastatin 40 Milligram By Mouth once a day (at bedtime). psyllium (Metamucil Fibre Therapy) 1 cap By Mouth every day. topiramate (Topamax) 50 Milligram By Mouth every day. PATIENT EDUCATION INFORMATION Instructions: Medication Leaflets:[facility] Children's HospitalPatient Education - Texton 02-53-9500Esprmwr Education - TextNormTogus VA Medical CenterProgress Note-Physicianon 97-43-6590Brhbibac Note-PhysicianPatient: MARY JANE RIOS Age: 77 years Sex: [...] bedtime), # 90 tab(s), Refills(s) 6, Pharmacy: [facility] #[id number], 162, cm, 09/16/23 10:47:00 EDT, Height/Length Dosing, 97.8, kg, 09/16/23 10:47:00 EDT, Weight Dosing Documented Medications Documented Melania 24 Hour Allergy oral tablet: 180 mg [...] of stomach acid fluticasone 0.05 mg/inh Nasal [place]oc[place]: 50 mcg, Nasal, Daily, Refill(s) 0, Allergy symptoms levothyroxine 50 mcg (0.05 mg) Tab: 50 microgram = 1 tab(s), Oral, Daily, Refills(s) 0, Thyroid loratadine 10 mg oral capsule: 10 mg = 1 cap(s), Oral, Daily, PRN Allergy symptoms pravastatin: 40 mg, Oral, Once a day (at bedtime), Refills(s) 0, High cholesterol, Home Medications (18) Active Melania 24 Hour Allergy oral tablet 180 mg [...] day (at bedtime) fluticasone 0.05 mg/inh Nasal [place] 50 mcg, Nasal, Daily levothyroxine 50 mcg [...] All Problems Acid reflux / SNOMED CT 565407529 / Confirmed Anticoagulated / SNOMED CT 926796382 / Confirmed Asymptomatic microscopic hematuria / SNOMED CT 5108736901 / Confirmed Chronic back pain / SNOMED CT 247201225 / Confirmed Epigastric pain / SNOMED CT 706034288 / Confirmed H/O: arthritis / SNOMED CT 298334185 / Confirmed History of colon polyps / SNOMED CT 3610136445 / Confirmed Hypercholesterolemia / SNOMED CT 02861101 / Confirmed Hypothyroidism / SNOMED CT 56195074 / Confirmed Internal hemorrhoids / SNOMED CT 358610029 / Confirmed Intestinal metaplasia of stomach / SNOMED CT 325046112 / Confirmed Low vitamin B12 level / SNOMED CT 6184112335 / Confirmed Mixed incontinence / SNOMED CT 13129588 / Confirmed Mixed stress and urge urinary incontinence / SNOMED CT 6597506893 / Confirmed Nocturia / SNOMED CT 829849110 / Confirmed Obesity / ICD-9-CM 278.00 / Possible Shoulder strain / SNOMED CT 214382607 / Confirmed Sleep apnea / SNOMED CT 218187590 / Confirmed USES CPAP Stress incontinence / SNOMED CT 606013424 / Confirmed TMJ (temporomandibular joint disorder) / SNOMED CT 13768519 / Confirmed Urge incontinence / SNOMED CT 743714274 / Confirmed Weak urinary stream / SNOMED CT 462724132 / Confirmed Resolved: Constipation / SNOMED CT 89700006 Resolved: Diverticulosis / SNOMED CT 1167195865 Resolved: Frequency of urination / SNOMED CT 827995452 Resolved: Gastritis / SNOMED CT 2903424 Resolved: Hx of post-iza (more content not included)...[facility]'s HospitalComment on above:Result Comment: Electronically Signed By: Danny MORE)Obie\.br\Date and Time Signed: 09/16/23 14:59 EDTProgress Note-PhysicianPatient: MARY JANE RIOS Age: 77 years Sex: Female : 1945 Associated Diagnoses: None Author: Danny Albarado ()Obie Preoperative Information Anesthesia history: Patient history: None. [...] Total volume (mL): 1,000 Documented Medications Documented Melania 24 Hour Allergy oral tablet: 180 mg [...] of stomach acid fluticasone 0.05 mg/inh Nasal [place]oc[place]: 50 mcg, Nasal, Daily, Refill(s) 0, Allergy symptoms levothyroxine 50 mcg (0.05 mg) Tab: 50 microgram = 1 tab(s), Oral, Daily, Refills(s) 0, Thyroid loratadine 10 mg oral capsule: 10 mg = 1 cap(s), Oral, Daily, PRN Allergy symptoms pravastatin: 40 mg, Oral, Once a day (at bedtime), Refills(s) 0, High cholesterol, Home Medications (17) Active Melania 24 Hour Allergy oral tablet 180 mg = 1 tab(s), Oral, Daily alprazolam 0.5 mg, Oral, Bedtime aspirin 81 mg, Oral, Daily calcium carbonate-magnesium carbonate , Oral, BID CeleXA 20 mg Tab 20 mg = 1 tab(s), Oral, Daily Colace 100 mg, Oral, Daily famotidine 20 mg, Oral, Once a day (at bedtime) fluticasone 0.05 mg/inh Nasal [place] 50 mcg, Nasal, Daily levothyroxine 50 mcg [...] All Problems Acid reflux / SNOMED CT 670033920 / Confirmed Anticoagulated / SNOMED CT 158147007 / Confirmed Asymptomatic microscopic hematuria / SNOMED CT 4219646314 / Confirmed Chronic back pain / SNOMED CT 086277090 / Confirmed Epigastric pain / SNOMED CT 544270311 / Confirmed H/O: arthritis / SNOMED CT 370711505 / Confirmed History of colon polyps / SNOMED CT 6201330697 / Confirmed Hypercholesterolemia / SNOMED CT 93840692 / Confirmed Hypothyroidism / SNOMED CT 35556490 / Confirmed Internal hemorrhoids / SNOMED CT 989223962 / Confirmed Intestinal metaplasia of stomach / SNOMED CT 703527372 / Confirmed Low vitamin B12 level / SNOMED CT 7011575732 / Confirmed Mixed incontinence / SNOMED CT 08013867 / Confirmed Mixed stress and urge urinary incontinence / SNOMED CT 0536416109 / Confirmed Nocturia / SNOMED CT 136625546 / Confirmed Obesity / ICD-9-CM 278.00 / Possible Shoulder strain / SNOMED CT 493823906 / Confirmed Sleep apnea / SNOMED CT 179950164 / Confirmed USES CPAP Stress incontinence / SNOMED CT 090800772 / Confirmed TMJ (temporomandibular joint disorder) / SNOMED CT 12712870 / Confirmed Urge incontinence / SNOMED CT 890858252 / Confirmed (more content not included)...[facility]'s HospitalComment on above:Result Comment: Electronically Signed By: Danny Anesthesiology (Obie BREWER\.br\Date and Time Signed: 09/16/23 13:35 EDTCOVID-19, Rapidon 78-12-0236Qedblfptjkcjtm and review of laboratory resultsAbnormalBON MERCY HEALTH ST. CHARLES HOSPITALRS-CoV-2 (COVID- 19) RdRp gene JUAQUIN+probe Ql (Resp)DetectedAbnormalNot DetectedPioneer Community Hospital of Patrickment on above: Rapid NAAT: The specimen is [...] this assay. Fact sheet for Healthcare Providers: https://www.fda.gov/media/473588/download Fact sheet for Patients: https://www.fda.gov/media/532242/download Methodology: Isothermal Nucleic Acid Amplification Results reported to the appropriate Health Department Specimen Description.NASOPHARYNGEAL SWABRIVERSIDE BEHAVIORAL HEALTH CENTERRapid influenza A/B antigenson 33-44-4102BGLYN Ag Ql (Unsp spec) NegativeNEGATIVEInova Alexandria Hospital on above:for Influenza A Antigen FLUBV Ag Ql (Unsp spec)NegativeNEGATIVEInova Alexandria Hospital on above: for Influenza B Antigen.[facility]OSPITAL MONTGOMERYAlanine aminotransferase [Enzymatic activity/volume] in Serum or PlasmaOrdered By: Obie Hylton on 34-50-0928HIH [Catalytic activity/Vol]9 U/L7-52[facility] Albumin [Mass/volume] in Serum or Plasma by Bromocresol green (BCG) dye binding methoOrdered By: Obie Hylton on 00-82-5683Ncfhstf BCG dye [Mass/Vol]3.9 g/dL 3.5-5.7FFairfield Medical CenterAlkaline phosphatase [Enzymatic activity/volume] in Serum or PlasmaOrdered By: Obie Hylton on 22-70-4783NZA [Catalytic activity/Vol]51 U/Y81-601TjlhomtaiVeterans Health AdministrationAspartate aminotransferase [Enzymatic activity/volume] in Serum or PlasmaOrdered By: Obie Warner on 50-76-7445GRM [Catalytic activity/Vol]14 U/F28-32FrnqshcegVeterans Health AdministrationAutomated erythrocytes count in urine sediment (number/area)Ordered By: Obie Hylton on 52-60-5191EZH Auto (Urine sed) [#/Area]0-1 [HPF]0-4FFairfield Medical CenterAutomated leukocytes count in urine sediment (number/area)Ordered By: Obie Hylton on 19-95-3435ARL Auto (Urine sed) [#/Area]0-1 [HPF]0-4FFairfield Medical CenterBasophils Auto (Bld) [#/Vol]Ordered By: Obie Hylton on 24-17-0498Vdnwykque (Bld) [#/Vol]0.0 10*3/uL0.0-0.2FFairfield Medical CenterBasophils/100 WBC Auto (Bld) Ordered By: Obie Hylton on 36-39-0330Gdwcdykiw/100 WBC (Bld)0.4 %.Veterans Health AdministrationBilirubin Test strip Ql (U)Ordered By: Obie Hylton on 10-40-6096Athsifwal Ql (U)NegativeNegativeVeterans Health Administration Bilirubin.total [Mass/volume] in Serum or PlasmaOrdered By: Obie Hylton on 00-40-1509Tpspriikv [Mass/Vol]0.5 mg/dL0.3-1.0[facility] Calcium [Mass/volume] in Serum or PlasmaOrdered By: Obie Hylton on 05-27-2023 Calcium [Mass/Vol]8.9 mg/dL8.6-10.3FFairfield Medical CenterCarbon dioxide, total [Moles/volume] in Serum or PlasmaOrdered By: Obie Hylton on 25-07-4138AE5 [Moles/Vol]27.0 mmol/L21.0-31.0[facility] Chloride [Moles/volume] in Serum or PlasmaOrdered By: Obie Hylton on 55-16-7321Ghzrfpgs [Moles/Vol]112 mmol/O42-129MflxirfvnVeterans Health Administration Color Auto (U)Ordered By: Obie Hylton on 66-21-6113Vafkh (U)YellowYellow [facility] Health AdministrationCreatinine [Mass/volume] in Serum or Plasma Ordered By: Obie Hylton on 85-95-0873Uamoahxwbl [Mass/Vol]1.20 mg/dL0.60-1.20 [facility] AdministrationEosinophils Auto (Bld) [#/Vol]Ordered By: Obie Hylton on 69-82-5600Zlasfnyyzsq (Bld) [#/Vol]0.1 10*3/uL0.0-0.45 [facility] AdministrationEosinophils/100 WBC Auto (Bld)Ordered By: Obie Hylton on 92-71-7715Ioupqtugyee/100 WBC (Bld)2.0 %.[facility] Health AdministrationErythrocyte distribution width Auto (RBC) [Ratio]Ordered By: Obie Hylton on 17-53-0529Tpnoepzteac distribution width (RBC) [Ratio]14.9 % 11.9-15.3FFairfield Medical CenterErythrocyte sedimentation rate by Photometric methodOrdered By: Obie Hylton on 23-70-3264PWN Photometric method (Bld) [Velocity]17 mm/hr0-29Veterans Health AdministrationGlobulin Calc (S) [Mass/Vol]Ordered By: Obie Hylton on 74-95-8271Ckqaptfi (S) [Mass/Vol]2.1 g/dLVeterans Health AdministrationGlucose [Mass/volume] in Serum or Plasma Ordered By: Obie Hylton on 28-19-3152Xbfatpr [Mass/Vol]91 mg/iO11-102 [facility] AdministrationComment on above:ADA recommended reference rangeRandom Glucose Reference Range is dependent on time and content of last meal. Glucose of more than 200 mg/dL in a nonstressed, ambulatory subject supports the diagnosisof Diabetes Mellitus.Hematocrit Auto (Bld) [Volume fraction]Ordered By: Obie Hylton on 21-92-3692Qrkbdbhpky (Bld) [Volume fraction]34.4 %34.0-46.4FFairfield Medical CenterHemoglobin [Mass/volume] in BloodOrdered By: Obie Hylton on 44-72-9653Wnxmovqnxo (Bld) [Mass/Vol]11.7 g/dL11.8-15.4FFairfield Medical CenterKetones Auto test strip (U) [Mass/Vol]Ordered By: Obie Hylton on 65-42-1070Xakqwuf (U) [Mass/Vol]NegativeNegativeVeterans Health AdministrationLaboratory - UrinalysisOrdered By: Obie Hylton on 36-29-0287Ofhtdig casts LM Ql (Urine sed)0-8 [LPF]0-8V[facility] AdministrationLeukocytes [#/volume] corrected for nucleated erythrocytes in Blood by Automated counOrdered By: Obie Hylton on 33-86-1072BLU corrected for nucl RBC Auto (Bld) [#/Vol]3.9 10*3/uL3.8-11.6 [facility] AdministrationLymphocytes Auto (Bld) [#/Vol]Ordered By: Obie Hylton on 45-57-0802Mqnlqpjavjz (Bld) [#/Vol]1.1 10*3/uL1.00-4.8 [facility] AdministrationLymphocytes/100 WBC Auto (Bld)Ordered By: Obie Hylton on 24-02-9655Ttukjmfgvym/100 WBC (Bld)27.3 %.[facility] HospitalH Auto (RBC) [Entitic mass]Ordered By: Obie Hylton on 17-50-4582ECY (RBC) [Entitic mass]31.7 pg24.7-34.3FFairfield Medical CenterMCHC Auto (RBC) [Mass/Vol]Ordered By: Obie Hylton on 09-88-5051IEYT (RBC) [Mass/Vol]33.9 g/dL32.0-35.0V[facility] Health AdministrationMCV Auto (RBC) [Entitic vol]Ordered By: Obie Hylton on 06-68-1180KMT (RBC) [Entitic vol]93.4 nQ38-804QqrwoikajVeterans Health AdministrationMonocytes Auto (Bld) [#/Vol] Ordered By: Obie Hylton on 88-62-0232Kfdpvoael (Bld) [#/Vol]0.3 10*3/uL 0.0-0.8V[facility] Health AdministrationMonocytes/100 WBC Auto (Bld)Ordered By: Obie Hylton on 96-37-7052Wnjiztsxt/100 WBC (Bld)8.4 %.[facility] Health AdministrationNeutrophils Auto (Bld) [#/Vol]Ordered By: Obie Hylton on 08-43-0041Qkxckalmdmt (Bld) [#/Vol]2.4 10*3/uL1.8-7.7FFairfield Medical CenterNeutrophils/100 WBC Auto (Bld)Ordered By: Obie Hylton on 05-27-2023 Neutrophils/100 WBC (Bld)61.9 %.V[facility] Health AdministrationNitrite Test strip Ql (U)Ordered By: Obie Hylton on 08-43-8997Flhgfvk Ql (U)Negative NegativeVeterans Health AdministrationNo Panel InformationOrdered By: Obie Hylton on 10-29-0634Likoxeerg GFR (CKD-EPI)46.333 mL/MinVeterans Health AdministrationPharmacy Creatinine Clearance (ChemN/AFFairfield Medical CenterNucleated erythrocytes [Presence] in Blood by Automated countOrdered By: Obie Hylton on 01-41-5715Dwhxtupzg RBC Auto Ql (Bld)0.2 /100{WBC}0-0.5 [facility] AdministrationPlatelet mean volume Auto (Bld) [Entitic vol] Ordered By: Obie Hylton on 05-20-6872Gkfqmesq mean volume (Bld) [Entitic vol] 8.8 fL6.3-10.7FFairfield Medical CenterPlatelets Auto (Bld) [#/Vol] Ordered By: Obie Hylton on 47-39-3523Vheiowmvc (Bld) [#/Vol]193 10*3/uL 150-450V[facility] Health AdministrationPotassium [Moles/volume] in Serum or PlasmaOrdered By: Obie Hylton on 25-97-6532Sayuitwpx [Moles/Vol]4.4 mmol/L 3.5-5.1FFairfield Medical CenterProtein Auto test strip (U) [Mass/Vol] Ordered By: Obie Hylton on 78-93-5518Qkanlsc (U) [Mass/Vol]NegativeNegative [facility] AdministrationProtein [Mass/volume] in Serum or PlasmaOrdered By: Obie Hylton on 78-66-7670Ymuxoqc [Mass/Vol]6.0 g/dL6.4-8.9V[facility] Health AdministrationRBC Auto (Bld) [#/Vol]Ordered By: Obie Hylton on 41-11-3614BUK (Bld) [#/Vol]3.68 10*6/uL3.60-5.00[facility] Easterum or plasma albumin/globulin mass ratioOrdered By: Obie Hylton on 19-16-8045Iurvfbz/Globulin [Mass ratio]1.9 {ratio}[facility] Easterum or plasma anion gap determinationOrdered By: Obie Hylton on 95-44-7179Bmnxv gap [Moles/Vol]8.4 mmol/L6.0-15.0[facility] Eastodium [Moles/volume] in Serum or PlasmaOrdered By: Obie Hylton on 18-47-3771Uxznel [Moles/Vol]143 mmol/F906-733PyocavdnkVeterans Health Administration Specific gravity Auto test strip (U) [Rel density]Ordered By: Obie Hylton on 26-00-5460Vobnytxh gravity (U) [Rel density]1.0171.001-1.030[facility] Eastquamous epithelial cells detection in urine sediment by light microscopyOrdered By: Obie Hylton on 29-35-9335Vwnjlkbejr cells.squamous LM Ql (Urine sed)1-2 [HPF]0-2FFairfield Medical CenterUrea nitrogen [Mass/volume] in Serum or PlasmaOrdered By: Obie Hylton on 43-50-8356Xalf nitrogen [Mass/Vol]25 mg/dL7-25V[facility] AdministrationUrine bacteria detection by automated methodOrdered By: Obie Hylton on 41-13-3047Lmgmrwel Auto Ql (U)None seenNone SeenVeterans Health AdministrationUrine clarity by refractometry automatedOrdered By: Obie Hylton on 87-62-5987Gscbepr Refractometry automated (U)CloudyClearFFairfield Medical CenterUrine glucose measurement by automated test strip (mass/volume)Ordered By: Obie Hylton on 99-68-6272Pzgnyov Auto test strip (U) [Mass/Vol]Normal mg/dLGerman HospitalUrine hemoglobin detection by automated test stripOrdered By: Obie Hylton on 60-14-7236Keffluaeim Auto test strip Ql (U) TraceNegativeVeterans Health AdministrationUrine leukocyte esterase detection by automated test stripOrdered By: Obie Hylton on 16-65-5512Swdwbpvxe esterase Auto test strip Ql (U)NegativeNegGrant Hospital Urobilinogen Auto test strip (U) [Mass/Vol]Ordered By: Obie Hylton on 48-35-8278Xcccwkavypxp (U) [Mass/Vol]Normal mg/dLUpper Valley Medical CenterWBC Auto (Bld) [#/Vol]Ordered By: Obie Hylton on 25-72-5815ASK (Bld) [#/Vol]3.9 10*3/uL3.8-11.6FFairfield Medical CenterpH Auto test strip (U)Ordered By: Obie Hylton on 44-41-1654mU (U)5.5 [pH]5.0-9.0V[facility] Health AdministrationFollow-Upon 29-54-3379Qqmbub-[id number] Mary Jane Rios 1945 F Date Provider Department Center 04/11/2023 XU YEUNG [facility] No family history on file Level of Service:12637 [place] OFFICE/OUTPATIENT ESTABLISHED LOW MDM 20-29 MINNoGood Samaritan HospitalOffice Visiton 10-94-5627Smnblm-up visit [id number] Mary Jane Rios 1945 F Date Provider Department Center 03/28/2023 XU YEUNG [facility] No family history on file Level of Service:26217 [place] OFFICE/OUTPATIENT NEW MODERATE MDM 45-59 MINUTESVeterans Health AdministrationUS RENAL LIMITEDon 60-56-1997Nzexpn bilateral renal cysts with otherwise unremarkable exam [facility] RIS CONSOLIDATEDEXAMINATION: ULTRASOUND OF THE KIDNEYS 03/13/2023 10:12 am COMPARISON: None. HISTORY: ORDERING SYSTEM PROVIDED HISTORY: Renal cyst TECHNOLOGIST PROVIDED HISTORY: This procedure can be scheduled via [employer]. Access your [employer] account by visiting [employer]. FINDINGS: The right kidney measures 11.7 cm in length and the left kidney measures 11.3 cm in length. Normal renal cortical echogenicity. No hydronephrosis or nephrolithiasis. Simple right renal cyst 5 cm. Simple left renal cyst 5.2 cm. [facility] Jonny Webber DO - 03/13/2023 EXAMINATION: ULTRASOUND OF THE KIDNEYS 03/13/2023 10:12 am COMPARISON: None. HISTORY: ORDERING SYSTEM PROVIDED HISTORY: Renal cyst TECHNOLOGIST PROVIDED HISTORY: This procedure can be scheduled via [employer]. Access your [employer] account by visiting [employer]. FINDINGS: The right kidney measures 11.7 cm in length and the left kidney measures 11.3 cm in length. Normal renal cortical echogenicity. No hydronephrosis or nephrolithiasis. Simple right renal cyst 5 cm. Simple left renal cyst 5.2 cm. IMPRESSION: Simple bilateral renal cysts with otherwise unremarkable exam [facility] FindersfeeRadiology Study observation (narrative)[facility] [employer] RENAL LIMITEDOrdered By: Jonny Lopez on 05-20-5664GXB [employer] Work Phone: Consent for Procedure/Surgeryon 38-66-2401Ybchene for Procedure/[id number]#1.00CD:127NoBlanchard Valley Health System [facility] HospitalAmbulatory Visit Summaryon 45-09-2223Dnjzvfllpb Visit Summary MARY JANE RIOS :1945 Visit Date:02/28/2023 Ambulatory Visit Instructions Your Diagnosis Intestinal metaplasia of stomach Acid reflux History of colon polyps Your Care Team Attending Physician - Marshall STEINER, Davion Zarate Primary Care Physician - NAKIA STEINER, RONI Ortiz This Is Your Medications List acetaminophen-oxycodone (acetaminophen-oxycodone 325 mg-5 mg Tab) alprazolam aspirin calcium carbonate-magnesium carbonate citalopram (CeleXA 20 mg Tab) docusate (Colace) ergocalciferol (Vitamin D) famotidine (famotidine 20 mg Tab) fexofenadine (Melania 24 Hour Allergy oral tablet) fluticasone nasal (fluticasone 0.05 mg/inh Nasal [place]oc[place]inity) levothyroxine (levothyroxine 50 mcg (0.05 mg) Tab) loratadine (loratadine 10 mg oral capsule) multivitamin (Multiple Vitamins Tab) pantoprazole (Pantoprazole [address] Tab) pilocarpine (Salagen 5 mg Tab) pravastatin psyllium (Metamucil Fibre Therapy) topiramate (Topamax) Procedures Performed EGD - Esophagogastroduodenoscopy (07/26/2022), Rotator cuff repair (07/28/2021), Sling procedure ofbladder neck (06/03/2019), Cystourethroscopy with dilation of urethral [...] Acid reflux Duration: 90 Days Unchanged fexofenadine (Melania 24 Hour Allergy oral tablet) 1 Tablets By Mouth Every day Unchanged fluticasone nasal (fluticasone 0.05 mg/ inh Nasal Chocowinity) 50 Microgram Nasal Inhalation Every day Unchanged [...] urinary incontinence Nocturia Sl (more content not included)...[facility] with Auto Differentialon 75-14-6997Rvulxqcdc (Bld) [#/Vol]0.00 10*3/uLBON SECOURS WESTERN RESERVE HOSPITALBasophils/100 WBC (Bld)0 %0 - 2 %[facility] CENTERDifferential Type YESBON SECOURS WESTERN RESERVE HOSPITALEosinophils (Bld) [#/Vol]0.10 10*3/uLBON SECOURS MERCY WHITE HOSPITALEosinophils/100 WBC (Bld)2 %0 - 5 %[facility] Erythrocyte distribution width (RBC) [Ratio]14.0 %12.1 - 15.2 %[facility] MEDICAL CENTERHematocrit (Bld) [Volume fraction]35.6 %Low36 - 46 %[facility] MEDICAL CENTERHemoglobin (Bld) [Mass/Vol]12.0 g/dL12.0 - 16.0 g/dLBON SECMAIN CAMPUS MEDICAL CENTERInterpretation and review of laboratory resultsAbnormalBON SECMAIN CAMPUS MEDICAL CENTERLymphocytes/100 WBC (Bld)27 %15 - 40 %[facility] Lymphocytes/100 WBC (Bld)1.30 %[facility]PITALH (RBC) [Entitic mass] 31.0 pg26 - 34 pgBON REGENC[facility]PITAL TOLEDOHC (RBC) [Mass/Vol]33.8 g/dL31 - 37 g/dLBON SECKETTERING HEALTH SPRINGFIELDV (RBC) [Entitic vol]91.6 fL80 - 100 fLBON SECMAIN CAMPUS MEDICAL CENTERMonocytes/100 WBC (Bld)9 %High4 - 8 %[facility] Monocytes/100 WBC (Bld)0.50 %[facility] HOSPITALNeutrophils/100 WBC (Bld)62 %47 - 75 %[facility] HEALTHPlatelets (Bld) [#/Vol]240 10*3/uLBON SECOURS MERCY HEALTHRBC (Bld) [#/Vol]3.89 10*6/uLLow4.0 - 5.2 m/uLBON SECOURS MERCY HEALTHSegmented neutrophils/100 WBC (Bld)3.10 %[facility] HEALTHWBC other (Bld) [#/Vol]5.0B[facility] HEALTHBON SEC[facility]ERY HEALTHComprehensive Metabolic Panelon 21-75-3707Gxmbrbj [Mass/Vol]3.7 g/dL3.5 - 5.2 g/dLBON SECOURS MERCY HEALTHALP [Catalytic activity/Vol]70 U/L35 - 104 U/LBON SECOURS MERCY HEALTHALT [Catalytic activity/Vol]6 U/L5 - 33 U/LBON [facility]RS MERCY HEALTHAnion gap [Moles/Vol]10 mmol/L9 - 17 mmol/LBON SECOURS MERCY HEALTHAST [Catalytic activity/Vol]15 U/LNINF - 32 U/LBON [facility]RS MERCY HEALTHBilirubin [Mass/Vol]0.3 mg/dL0.3 - 1.2 mg/dLBON SECOURS MERCY HEALTHCalcium [Mass/Vol]9.4 mg/dL8.6 - 10.4 mg/dLBON SECOURS MERCY HEALTHChloride [Moles/Vol]105 mmol/L98 - 107 mmol/L [facility] HEALTHCO2 [Moles/Vol]24 mmol/L20 - 31 mmol/LBON SECOURS MERCY HEALTHCreatinine [Mass/Vol]1.12 mg/dLHigh0.50 - 0.90 mg/dLBON SECOURS MERCY HEALTHGFR/1.73 sq M.predicted MDRD (S/P/Bld) [Vol rate/Area]51 mL/min/{1.73_m2} Low- PINFBON SECOURS MERCY HEALTHComment on above: These results are not intended [...] therapy that affects renal tubular secretion. Glucose [Mass/Vol]97 mg/dL70 - 99 mg/dLBON SECOURS MERCY HEALTHInterpretation and review of laboratory resultsAbnormalBON SECOURS MERCY HEALTHPotassium [Moles/Vol]4.1 mmol/L3.7 - 5.3 mmol/LBON SECOURS MERCY HEALTHProtein [Mass/Vol] 6.7 g/dL6.4 - 8.3 g/dLBON SECOURS MERCY HEALTHSodium [Moles/Vol]139 mmol/L135 - 144 mmol/LBON SECOURS MERCY HEALTHUrea nitrogen [Mass/Vol]32 mg/dLHigh8 - 23 mg/dLBON SECOURS MERCY HEALTHUrea nitrogen/Creatinine [Mass ratio]29 mg/mgHigh9 - 20B[facility] MERCY HEALTHBON [facility] MER[facility] HEALTHMicroscopic Urinalysison 11-25-2022-B[facility] MERCY HEALTHEpithelial cells LM.HPF (Urine sed) [#/Area]0 TO 2/HPFBON SECOURS MERCY HEALTHRBC LM.HPF (Urine sed) [#/Area]0 TO 2BON SECOURS MERCY HEALTHWBC LM.HPF (Urine sed) [#/Area]NONE SEEN0 /HPFBON SECOURS MERCY HEALTHBON [facility] MERCY HEALTHUrinalysison 29-66-2359Vaihoghyy Ql (U) NegativeNEGATIVEBON SECOURS MERCY HEALTHClarity (U)ClearClearBON SECOURS MERCY HEALTHColor (U)YellowYellowBON SECOURS MERCY HEALTHGlucose Test strip (U) [Mass/Vol]NegativeNEGATIVEBON SECOURS MERCY HEALTHHemoglobin Auto test strip Ql (U)TRACEAbnormalNEGATIVEBON SECOURS MERCY HEALTHInterpretation and review of laboratory resultsAbnormalBON SECOURS MERCY HEALTHKetones (U) [Mass/Vol]Negative NEGATIVEBON SECOURS MERCY HEALTHLeukocyte esterase Test strip Ql (U)Negative NEGATIVEBON SECOURS MERCY HEALTHNitrite Ql (U)NegativeNEGATIVEBON SECOURS MERCY HEALTHpH (U)6.5 [pH]5.0 - 8.0B[facility] HEALTHProtein (U) [Mass/Vol]TRACE AbnormalNEGATIVEBON SECOURS MERCY HEALTHSpecific gravity (U) [Rel density]1.015 1.005 - 1.030[facility] MONTGOMERYUrinalysis CommentsLEWISGALE HOSPITAL MONTGOMERY Urobilinogen Qn (U)NormalNormalRIVERSIDE BEH[facility]IOR[facility] XR CHEST (2 VW)on 11-25-2022 No acute cardiopulmonary findings. [facility] RIS CONSOLIDATEDEXAM: XR CHEST (2 VW) INDICATION: Reason for exam:->Recently treated for Pneumonia. COMPARISON: 11/17/2022 TECHNIQUE: Chest radiograph(s) as above FINDINGS: Lines/Tubes: None Lungs: No pneumothorax, pleural effusion, or consolidation. Cardiomediastinal silhouette: Normal in size. Bones/Soft Tissues: No acute osseous abnormality. Right upper quadrant surgical clips. [facility] Bello Brock MD - 11/25/2022 EXAM: XR CHEST (2 VW) INDICATION: Reason for exam:->Recently treated for Pneumonia. COMPARISON: 11/17/2022 TECHNIQUE: Chest radiograph(s) as above FINDINGS: Lines/Tubes: None Lungs: No pneumothorax, pleural effusion, or consolidation. Cardiomediastinal silhouette: Normal in size. Bones/Soft Tissues: No acute osseous abnormality. Right upper quadrant surgical clips. IMPRESSION: No acute cardiopulmonary findings. [facility] [employer] Work Phone: radiology Study observation (narrative)[employer] Phone: XR CHEST (2 VW)Ordered By: Bello Zheng on 11-25-2022 [facility] [employer] Work Phone: XR CHEST (2 VW)on 57-51-4266NWUZTOJL/IMPRESSION: 1. Normal sized heart. 2. Clear lungs. [facility] CONSOLIDATEDEXAM: XR CHEST (2 VW) HISTORY: Reason for exam:->HTN. COMPARISON: Portable chest 03/31/2020. [facility] Ishmael Somers Jr., MD - 08/29/2022 EXAM: XR CHEST (2 VW) HISTORY: Reason for exam:->HTN. COMPARISON: Portable chest 03/31/2020. IMPRESSION: FINDINGS/IMPRESSION: 1. Normal sized heart. 2. Clear lungs. [employer] Phone: radiology Study observation (narrative)[employer] Phone: xr CHEST (2 VW)Ordered By: Ishmael Valentin on 08-29-2022 [facility] [place] Phone: Aspartate aminotransferase [Enzymatic activity/volume] in Serum or PlasmaOrdered By: Obie Hylton on 09-50-1014OVY [Catalytic activity/Vol]16 U/M85-23RgwbokojoVeterans Health AdministrationAutomated erythrocytes count in urine sediment (number/area)Ordered By: Obie Hylton on 92-02-5412SWV Auto (Urine sed) [#/Area]1-2 [HPF]0-4FFairfield Medical CenterAutomated leukocytes count in urine sediment (number/area)Ordered By: Obie Hylton on 44-13-3196CTT Auto (Urine sed) [#/Area]5-9 [HPF]0-4FFairfield Medical CenterBasophils Auto (Bld) [#/Vol]Ordered By: Obie Hylton on 08-21-2022 Basophils (Bld) [#/Vol]0.0 10*3/uL0.0-0.2FFairfield Medical Center Basophils/100 WBC Auto (Bld)Ordered By: Obie Hylton on 08-21-2022 Basophils/100 WBC (Bld)0.3 %.V[facility]ans Health AdministrationBilirubin Test strip Ql (U)Ordered By: Obie Hylton on 71-11-2421Nileexzpt Ql (U)Negative NegativeVeterans Health AdministrationBody fluid albumin measurement (mass/volume)Ordered By: Obie Hylton on 82-56-0233Hcskuac (Body fld) [Mass/Vol]3.6 g/dL3.2-5.5FFairfield Medical CenterCholesterol [Mass/volume] in Serum or PlasmaOrdered By: Kenneth Pascal on 08-21-2022 Cholesterol [Mass/Vol]120 mg/gL333-526EjjbtobdoVeterans Health AdministrationComment on above:Chol less than 200 mg/dl low riskChol 201-239 mg/dl borderline riskChol 240 mg/dl and greater high riskCholesterol in LDL Calc [Mass/Vol]Ordered By: Kenneth Pascal on 45-53-0351Qtrifpnazqv in LDL [Mass/Vol]59 mg/dL0-100Veter[facility] Health AdministrationComment on above:LDL ATP III CLASSIFICATIONLDL less than 100 mg/dL OptimalLDL 100-129 mg/dL Near or above risxqkaBCL531-043 mg/dL Borderline highLDL 160-189 mg/dL HighLDL greater than 189 mg/dL Very high Cholesterol in VLDL Calc [Mass/Vol]Ordered By: Kenneth Pascal on 08-21-2022 Cholesterol in VLDL [Mass/Vol]15 mg/dLVeterans Health AdministrationColor Auto (U)Ordered By: Obie Hylton on 02-08-2093Sssna (U)YellowYellowVeterans Health AdministrationCreatinine and Glomerular filtration rate.predicted panel (S/P/Bld)Ordered By: Obie Hylton on 16-97-4949Ixrhrihpoh [Mass/Vol]1.19 mg/dL0.44-1.03V[facility] Health AdministrationEosinophils Auto (Bld) [#/Vol] Ordered By: Obie Hylton on 00-91-4797Imhgmetnwgp (Bld) [#/Vol]0.1 10*3/uL 0.0-0.45Veter[facility] Health AdministrationEosinophils/100 WBC Auto (Bld)Ordered By: Obie Hylton on 77-23-6246Htcsgkxtppv/100 WBC (Bld)1.2 %.V[facility] Health AdministrationErythrocyte distribution width Auto (RBC) [Ratio]Ordered By: Obie Hylton on 68-85-5264Cafvlojfgdd distribution width (RBC) [Ratio]14.5 %11.9-15.3FFairfield Medical CenterErythrocyte sedimentation rate by Photometric methodOrdered By: Obie Hylton on 26-57-8227ABH Photometric method (Bld) [Velocity]9 mm/hr0-29Veterans Health AdministrationEstimated glomerular filtration rate (GFR) non- AmericanOrdered By: Obie Hylton on 32-32-8153UJV/1.73 sq M.predicted among non-blacks MDRD (S/P/Bld) [Vol rate/Area]44 mL/MinVeterans Health AdministrationGlobulin Calc (S) [Mass/Vol] Ordered By: Obie Hylton on 59-09-3021Gwqghuix (S) [Mass/Vol]2.6 g/dLVeterans Health AdministrationHematocrit Auto (Bld) [Volume fraction]Ordered By: Obie Hylton on 14-03-2859Mopwizvlkq (Bld) [Volume fraction]35.6 %34.0-46.4 [facility] Health AdministrationHemoglobin [Mass/volume] in BloodOrdered By: Obie Hylton on 30-63-2323Esxlljvqkn (Bld) [Mass/Vol]11.9 g/dL11.8-15.4 [facility] Health AdministrationKetones Auto test strip (U) [Mass/Vol]Ordered By: Obie Hylton on 76-38-3976Elbbebg (U) [Mass/Vol]NegativeNegativeVeterans Health AdministrationLaboratory - Chemistry and Chemistry - challengeOrdered By: Kenneth Pascal on 77-07-3733Jlrhkdldu [Mass/Vol]2.1 mg/dL1.6-2.6FFairfield Medical CenterLaboratory - UrinalysisOrdered By: Obie Hylton on 39-62-2339Eyfycrq casts LM Ql (Urine sed)0-8 [LPF]0-8V[facility] Health AdministrationLeukocytes [#/volume] corrected for nucleated erythrocytes in Blood by Automated counOrdered By: Obie Hylton on 71-90-4933IDF corrected for nucl RBC Auto (Bld) [#/Vol]4.7 10*3/uL3.8-11.6FFairfield Medical Center Lymphocytes Auto (Bld) [#/Vol]Ordered By: Obie Hylton on 08-21-2022 Lymphocytes (Bld) [#/Vol]1.0 10*3/uL1.00-4.8[facility] Lymphocytes/100 WBC Auto (Bld)Ordered By: Obie Hylton on 08-21-2022 Lymphocytes/100 WBC (Bld)21.8 %.[facility] Auto (RBC) [Entitic mass]Ordered By: Obie Hylton on 37-06-6846AAH (RBC) [Entitic mass] 33.9 pg24.7-34.3FPeoples HospitalHC Auto (RBC) [Mass/Vol] Ordered By: Obie Hylton on 36-50-7746MIGX (RBC) [Mass/Vol]33.5 g/dL32.0-35.0 [facility]MCV Auto (RBC) [Entitic vol]Ordered By: Obie Hylton on 75-19-3182SGU (RBC) [Entitic vol]101.2 rN92-147OreeeobsmVeterans Health AdministrationMonocytes Auto (Bld) [#/Vol]Ordered By: Obie Hylton on 82-85-1740Bwqxcczfa (Bld) [#/Vol]0.4 10*3/uL0.0-0.8[facility] AdministrationMonocytes/100 WBC Auto (Bld)Ordered By: Obie Hylton on 08-21-2022 Monocytes/100 WBC (Bld)8.2 %.[facility] AdministrationNeutrophils Auto (Bld) [#/Vol]Ordered By: Obie Hylton on 99-10-9661Kffttgrtrak (Bld) [#/Vol] 3.2 10*3/uL1.8-7.7FFairfield Medical CenterNeutrophils/100 WBC Auto (Bld)Ordered By: Obie Hylton on 09-96-6046Cccmhcibkae/100 WBC (Bld)68.5 %. [facility] AdministrationNitrite Test strip Ql (U)Ordered By: Obie Hylton on 59-79-1713Ebwmsqo Ql (U)NegativeNegativeVeterans Health AdministrationNo Panel InformationOrdered By: Kenneth Pascal on [id number]-Giljhjy Vitamin D Total43.9 ng/cA66-046UlzicikdlVeterans Health AdministrationComment on above:VITAMIN D STATUS 25(OH)VITAMIN D RANGE (ng/mL) Deficient <20 Insufficient 20 to <01Ewheknbflf29 to 100Reference: Jennifer MF,Babs LUCERO, Blank DONALD, et al. Evaluation,treatment, and prevention of vitamin D deficiency; an Endocrine Society clinical practice guideline. JCEM. 2010; 96(7):1911-30.No Panel InformationOrdered By: Obie Hylton on 27-78-0846Cspzazkux GFR ()53 mL/MinVeterans Health AdministrationComment on above:GFR estimated reference range: According to KDOQI guidelines, <60 ml/min/1.73m2 is sufficient todiagnose a patient with chronic kidney disease.Pharmacy Creatinine Clearance (ChemN/[facility] HospitalNucleated erythrocytes [Presence] in Blood by Automated countOrdered By: Obie Hylton on 08-21-2022 Nucleated RBC Auto Ql (Bld)0.2 /100{WBC}0-0.5FFairfield Medical Center Platelet mean volume Auto (Bld) [Entitic vol]Ordered By: Obie Hylton on 06-67-7858Wdsfzxbh mean volume (Bld) [Entitic vol]9.0 fL6.3-10.7FFairfield Medical CenterPlatelets Auto (Bld) [#/Vol]Ordered By: Obie Hylton on 58-44-3240Dzslsblwz (Bld) [#/Vol]188 10*3/zX704-245QuwsxeunlVeterans Health AdministrationProtein Auto test strip (U) [Mass/Vol]Ordered By: Obie Hylton on 98-50-7555Akdycds (U) [Mass/Vol]NegativeNegativeVeterans Health AdministrationProtein [Mass/volume] in Serum or PlasmaOrdered By: Obie Hylton on 69-44-4360Mnynhsw [Mass/Vol]6.2 g/dL6.1-7.9Veterans Health AdministrationRBC Auto (Bld) [#/Vol]Ordered By: Obie Hylton on 46-76-5808GIK (Bld) [#/Vol]3.52 10*6/uL3.60-5.00[facility] Easterum or plasma alanine aminotransferase measurement without P-5'-P (enzymatic activiOrdered By: Obie Hylton on 41-21-6307BNX No additional P-5'-P [Catalytic activity/Vol]12 U/L 10-60[facility] Easterum or plasma albumin/globulin mass ratioOrdered By: Obie Hylton on 08-18-9604Dtiiwrc/Globulin [Mass ratio]1.4 {ratio}[facility] Easterum or plasma alkaline phosphatase measurement (enzymatic activity/volume)Ordered By: Obie Hylton on 08-21-2022 ALP [Catalytic activity/Vol]58 U/C51-38GwtmkssysRegency Hospital [facility] Easterum or plasma anion gap determinationOrdered By: Obie Hylton on 48-18-9852Scqui gap [Moles/Vol]13.5 mmol/L6.0-15.0[facility] Easterum or plasma calcium measurement (mass/volume)Ordered By: Obie Hylton on 65-09-0716Fujpdsu [Mass/Vol]9.1 mg/dL8.2-10.2FMercy Health St. Joseph Warren Hospitalerum or plasma chloride measurement (moles/volume)Ordered By: Obie Hylton on 08-21-2022 Chloride [Moles/Vol]105 mmol/G74-317AtenmzivmRegency Hospital [facility] Easterum or plasma glucose measurement (mass/volume)Ordered By: Obie Hylton on 08-21-2022 Glucose [Mass/Vol]91 mg/yX93-560HhlwzlyxkVeterans Health AdministrationComment on above:ADA recommended reference rangeRandom Glucose Reference Range is dependent on time and content of last meal. Glucose of more than 200 mg/dL in a nonstressed, ambulatory subject supports the diagnosisof Diabetes Mellitus.Serum or plasma high density lipoprotein (HDL) cholesterol measurementOrdered By: Kenneth Pascal on 07-27-8382Nqgzhitmnis in HDL [Mass/Vol]45 mg/tK53-14GzrrywuezVeterans Health AdministrationComment on above:HDL CHOL ATP-III CLASSIFICATION Cardiovascular RiskHDL > or equal to 60 mg/dL LOWHDL < 40 mg/dL HIGHSerum or plasma potassium measurement (moles/volume)Ordered By: Obie Hylton on 44-79-1796Omfbmhsme [Moles/Vol]4.1 mmol/L3.5-5.1FMercy Health St. Joseph Warren Hospitalerum or plasma sodium measurement (moles/volume)Ordered By: Obie Hylton on 54-28-7497Yjgqrq [Moles/Vol]138 mmol/K982-258ZxmvgwvokRegency Hospital [facility] Easterum or plasma total bilirubin measurement (mass/volume)Ordered By: Obie Hylton on 77-18-1360Eazemxqcu [Mass/Vol]0.3 mg/dL0.3-1.2FMercy Health St. Joseph Warren Hospitalerum or plasma total carbon dioxide measurement (moles/volume)Ordered By: Obie Hylton on 69-17-2886VP1 [Moles/Vol]23.6 mmol/L 22.0-30.0[facility] Easterum or plasma total cholesterol/high density lipoprotein (HDL) cholesterol mass ratOrdered By: Kenneth Pascal on 29-20-7354Rpsnbfxexaw.total/Cholesterol in HDL [Mass ratio]2.7 {ratio}<5.0 [facility] Easterum or plasma urea nitrogen measurement (mass/volume)Ordered By: Obie Hylton on 28-89-9041Emli nitrogen [Mass/Vol]25 mg/dL9-23[facility] Eastpecific gravity Auto test strip (U) [Rel density]Ordered By: Obie Hylton on 99-18-7144Cirkjcmf gravity (U) [Rel density]1.0141.001-1.030[facility] Eastquamous epithelial cells detection in urine sediment by light microscopyOrdered By: Obie Hylton on 09-26-3800Aacflhkvfn cells.squamous LM Ql (Urine sed)5-9 [HPF]0-2FFairfield Medical CenterTSH DL <= 0.005 mIU/L QnOrdered By: Kenneth Pascal on 40-01-3287BHJ Qn1.14 m[IU]/L0.45-5.33[facility] Triglyceride [Mass/volume] in Serum or PlasmaOrdered By: Kenneth Pascal on 48-55-2491Pubbeynbifko [Mass/Vol]78 mg/eZ56-695QmuujoupsVeterans Health Administration Comment on above:TRIG ATP III CLASSIFICATIONTRIG less than 150 mg/dL NormalTRIG 150-199 mg/dL Borderline highTRIG 200-500 mg/dL High TRIG greater than 500 mg/dL Very highStandard traceable to the Center for Disease Conrtrol and Prevention (CDC) test method.Urine bacteria detection by automated methodOrdered By: Obie Hylton on 60-05-7211Yojsfokv Auto Ql (U)None seenNone SeenVeterans Health AdministrationUrine clarity by refractometry automatedOrdered By: Obie Hylton on 39-61-7234Gdkxjfj Refractometry automated (U)ClearClear Veterans Health AdministrationUrine glucose measurement by automated test strip (mass/volume)Ordered By: Obie Hylton on 86-66-8352Tngaunh Auto test strip (U) [Mass/Vol]Normal mg/dLNormParkview Health Bryan HospitalUrine hemoglobin detection by automated test stripOrdered By: Obie Hylton on 59-16-5342Telrxcwtwe Auto test strip Ql (U)TraceNegativeVeterans Health AdministrationUrine leukocyte esterase detection by automated test stripOrdered By: Obie Hylton on 60-68-0974Vkhpftafj esterase Auto test strip Ql (U)1+ NegativeVeterans Health AdministrationUrobilinogen Auto test strip (U) [Mass/Vol]Ordered By: Obie Hylton on 37-12-5395Yjespigkbjql (U) [Mass/Vol] Normal mg/dLNoPremier Health Miami Valley Hospital SouthWBC Auto (Bld) [#/Vol]Ordered By: Obie Hylton on 96-50-9524TQH (Bld) [#/Vol]4.7 10*3/uL3.8-11.6FFairfield Medical CenterpH Auto test strip (U)Ordered By: Obie Hylton on 73-27-3928nE (U)7.0 [pH]5.0-9.0Veterans Health AdministrationCHEMISTRYOrdered By: SYSTEM SYSTEM on 83-57-1225Fmfsu gap [Moles/Vol]12 mmol/LNormal6 - 16 mEq/L [facility] RemisolCalcium [Mass/Vol]8.8 mg/dLLow8.9 - 11.1 mg/dLFTMC RemisolChloride [Moles/Vol]108 mmol/HCeasyn028 - 111 mmol/LFTMC RemisolCO2 [Moles/Vol]24 mmol/L Ucwojn17 - 31 mmol/LFT[facility] RemisolCobalamin (Vitamin B12) [Mass/Vol]pg/pUFeoure93 - 1500 pg/mLFTMC RemisolCreatinine [Mass/Vol]1.3 mg/dLNormal0.5 - 1.3 mg/dLFTMC RemisolGFR/1.73 sq M.predicted among blacks MDRD (S/P/Bld) [Vol rate/Area]48 mL/min/1.73 m2Low>=59mL/min/1.73 m2FT Chem SGFR/1.73 sq M.predicted among non- blacks MDRD (S/P/Bld) [Vol rate/Area]40 mL/min/1.73 m2Low>=59mL/min/1.73 m2FT Chem SGlucose [Mass/Vol]97 mg/kJToypcl28 - 199 mg/dLFT RemisolMagnesium [Mass/Vol]2.2 mg/dLNormal1.3 - 2.4 mg/dLFTMC RemisolPotassium [Moles/Vol]4.4 mmol/LNormal3.5 - 5.3 mmol/LFTMC RemisolSodium [Moles/Vol]140 mmol/PRcjacm985 - 145 mmol/LFTMC RemisolUrea nitrogen [Mass/Vol]37 mg/dLHigh5 - 21 mg/dLFTMC RemisolUrea nitrogen/Creatinine [Mass ratio]28 mg/wiMfwr06 - 20[facility] Remisol Albumin [Mass/volume] in Serum or PlasmaOrdered By: Obie Hylton on 02-22-2022 Albumin [Mass/Vol]3.5 g/dL3.2-5.5FFairfield Medical CenterAutomated erythrocytes count in urine sediment (number/area)Ordered By: Obie Hylton on 42-72-7118CQP Auto (Urine sed) [#/Area]3-4 [HPF]0-4FFairfield Medical CenterAutomated leukocytes count in urine sediment (number/area)Ordered By: Obie Hylton on 02-78-5636HWY Auto (Urine sed) [#/Area]1-2 [HPF]0-4FFairfield Medical CenterBasophils Auto (Bld) [#/Vol]Ordered By: Obie Hylton on 21-56-0400Wshxdmutk (Bld) [#/Vol]0.0 10*3/uL0.0-0.2FFairfield Medical CenterBasophils/100 WBC Auto (Bld)Ordered By: Obie Hylton on 02-22-2022 Basophils/100 WBC (Bld)0.2 %.Veterans Health AdministrationBilirubin Test strip Ql (U)Ordered By: Obie Hylton on 61-24-1346Qglmrptxq Ql (U)Negative NegativeVeterans Health AdministrationBlood hemoglobin measurement (mass/volume)Ordered By: Obie Hylton on 93-27-8147Qvsusnwllj (Bld) [Mass/Vol] 12.3 g/dL11.8-15.4FFairfield Medical CenterBlood leukocytes automated count (number/volume)Ordered By: Obie Hylton on 16-14-9227KIJ (Bld) [#/Vol] 5.1 10*3/uL4.5-11.0Veterans Health AdministrationColor Auto (U)Ordered By: Obie Hylton on 77-39-8191Eksmf (U)YellowYellowVeterans Health AdministrationCreatinine and Glomerular filtration rate.predicted panel (S/P/Bld)Ordered By: Obie Hylton on 34-98-4963Awwtvqzxin [Mass/Vol]1.16 mg/dL0.44-1.03 [facility] AdministrationEosinophils Auto (Bld) [#/Vol]Ordered By: Obie Hylton on 29-16-2577Xsqodspzcua (Bld) [#/Vol]0.1 10*3/uL0.0-0.45 [facility] AdministrationEosinophils/100 WBC Auto (Bld)Ordered By: Obie Hylton on 60-96-0435Fozsxpwrzjt/100 WBC (Bld)1.4 %.V[facility]ans Health AdministrationErythrocyte distribution width Auto (RBC) [Ratio]Ordered By: Obie Hylton on 92-89-9343Havmefwkqxv distribution width (RBC) [Ratio]15.3 % 11.9-15.3FFairfield Medical CenterEstimated glomerular filtration rate (GFR) non- AmericanOrdered By: Obie Hylton on 68-30-9319EPO/1.73 sq M.predicted among non-blacks MDRD (S/P/Bld) [Vol rate/Area]45 mL/MinVeterans Health AdministrationGlobulin Calc (S) [Mass/Vol]Ordered By: Obie Hylton on 06-25-3766Xnvsglte (S) [Mass/Vol]2.5 g/dLVeterans Health Administration Hematocrit Auto (Bld) [Volume fraction]Ordered By: Obie Hylton on 02-22-2022 Hematocrit (Bld) [Volume fraction]36.6 %34.0-46.4FFairfield Medical CenterKetones Auto test strip (U) [Mass/Vol]Ordered By: Obie Hylton on 61-72-3879Btrvugf (U) [Mass/Vol]NegativeNegativeVeterans Health AdministrationLaboratory - Hematology and Cell countsOrdered By: Obie Hylton on 09-35-0908Bmwgifibo RBC/100 WBC (Bld) [Ratio]0.0 %0-0.5FFairfield Medical CenterLaboratory - UrinalysisOrdered By: Obie Hylton on 02-22-2022 Hyaline casts LM Ql (Urine sed)None seen [LPF]0-8V[facility] Health AdministrationLymphocytes Auto (Bld) [#/Vol]Ordered By: Obie Hylton on 02-22-2022 Lymphocytes (Bld) [#/Vol]1.1 10*3/uL1.00-4.8[facility] Lymphocytes/100 WBC Auto (Bld)Ordered By: Obie Hylton on 02-22-2022 Lymphocytes/100 WBC (Bld)22.2 %.[facility] HospitalH Auto (RBC) [Entitic mass]Ordered By: Obie Hylton on 94-92-0144BVF (RBC) [Entitic mass] 33.0 pg24.7-34.3FPeoples HospitalHC Auto (RBC) [Mass/Vol] Ordered By: Obie Hylton on 33-36-9425KMEL (RBC) [Mass/Vol]33.5 g/dL32.0-35.0 [facility] AdministrationMCV Auto (RBC) [Entitic vol]Ordered By: Obie Hylton on 32-28-1572GHR (RBC) [Entitic vol]98.5 qH35-016XyvxugetgVeterans Health AdministrationMonocytes Auto (Bld) [#/Vol]Ordered By: Obie Hylton on 21-26-8252Hxjsnunhs (Bld) [#/Vol]0.5 10*3/uL0.0-0.8V[facility] Health AdministrationMonocytes/100 WBC Auto (Bld)Ordered By: Obie Hylton on 02-22-2022 Monocytes/100 WBC (Bld)9.0 %.Veterans Health AdministrationNeutrophils Auto (Bld) [#/Vol]Ordered By: Obie Hylton on 84-62-4956Opktwycxupv (Bld) [#/Vol] 3.5 10*3/uL1.8-7.7FFairfield Medical CenterNeutrophils/100 WBC Auto (Bld)Ordered By: Obie Hylton on 10-44-8138Vppxifpvjzq/100 WBC (Bld)67.2 %. [facility] Health AdministrationNitrite Test strip Ql (U)Ordered By: Obie Hylton on 54-86-0610Blktwdn Ql (U)NegativeNegativeVeterans Health AdministrationNo Panel InformationOrdered By: Obie Hylton on 04-62-6412Febdqlghi GFR ()55 mL/MinVeterans Health AdministrationComment on above:GFR estimated reference range: According to KDOQI guidelines, <60 ml/min/1.73m2 is sufficient todiagnose a patient with chronic kidney disease.Pharmacy Creatinine Clearance (ChemN/[facility] HospitalPlatelet mean volume Auto (Bld) [Entitic vol]Ordered By: Obie Hylton on 71-26-7277Nyflwebk mean volume (Bld) [Entitic vol]8.7 fL6.3-10.7FFairfield Medical CenterPlatelets Auto (Bld) [#/Vol]Ordered By: Obie Hylton on 48-75-0899Nwpcsjaub (Bld) [#/Vol]182 10*3/kO958-697QymncnbduVeterans Health AdministrationProtein Auto test strip (U) [Mass/Vol]Ordered By: Obie Hylton on 66-53-0501Puhzpch (U) [Mass/Vol]Negative NegativeVeterans Health AdministrationProtein [Mass/volume] in Serum or PlasmaOrdered By: Obie Hylton on 02-06-5208Ixwnqbs [Mass/Vol]6.0 g/dL6.1-7.9 [facility] AdministrationRBC Auto (Bld) [#/Vol]Ordered By: Obie Hylton on 56-92-5076XDJ (Bld) [#/Vol]3.72 10*6/uL3.60-5.00[facility] Easterum or plasma alanine aminotransferase measurement without P-5'-P (enzymatic activiOrdered By: Obie Hylton on 37-57-3724AKU No additional P-5'-P [Catalytic activity/Vol]14 U/Z22-33AqnspadvoRegency Hospital Cleveland Easterum or plasma albumin/globulin mass ratioOrdered By: Obie Hylton on 59-44-0434Seooqwu/Globulin [Mass ratio]1.4 {ratio}[facility] Easterum or plasma alkaline phosphatase measurement (enzymatic activity/volume)Ordered By: Obie Hylton on 13-29-7546MTT [Catalytic activity/Vol]54 U/X85-08AtazpwjwvRegency Hospital Cleveland Easterum or plasma aspartate aminotransferase measurement (enzymatic activity/volume)Ordered By: Obie Hylton on 41-78-1299OHR [Catalytic activity/Vol]17 U/C38-90GtbtpbunsRegency Hospital Cleveland Easterum or plasma calcium measurement (mass/volume)Ordered By: Obie Hylton on 79-68-2316Iyqykmv [Mass/Vol]9.0 mg/dL8.2-10.2FMercy Health St. Joseph Warren Hospitalerum or plasma chloride measurement (moles/volume) Ordered By: Obie Hylton on 38-42-9349Exlbzxum [Moles/Vol]107 mmol/L95-114 [facility] Easterum or plasma glucose measurement (mass/volume)Ordered By: Obie Hylton on 81-71-2995Ttcympf [Mass/Vol]90 mg/dL 70-100V[facility] Health AdministrationComment on above:ADA recommended reference range Random Glucose Reference Range is dependent on time and content of last meal. Glucose of more than 200 mg/dL in a nonstressed, ambulatory subject supports the diagnosis of Diabetes Mellitus.ADA recommended reference rangeRandom Glucose Reference Range is dependent on time and content of last meal. Glucose of more than 200 mg/dL in a nonstressed, ambulatory subject supports the diagnosisof Diabetes Mellitus.Serum or plasma potassium measurement (moles/volume)Ordered By: Obie Hylton on 94-22-6437Rhofhkdym [Moles/Vol]4.2 mmol/L3.5-5.1FMercy Health St. Joseph Warren Hospitalerum or plasma sodium measurement (moles/volume)Ordered By: Obie Hylton on 53-88-4693Pkgeoe [Moles/Vol]139 mmol/C477-968OngpvgwfyRegency Hospital Cleveland Easterum or plasma total bilirubin measurement (mass/volume) Ordered By: Obie Hylton on 05-20-8420Gwtruicfc [Mass/Vol]0.5 mg/dL0.3-1.2 [facility] Easterum or plasma total carbon dioxide measurement (moles/volume)Ordered By: Obie Hylton on 69-55-7579HT2 [Moles/Vol]24.9 mmol/L22.0-30.0[facility] Easterum or plasma urea nitrogen measurement (mass/volume)Ordered By: Obie Hylton on 02-22-2022 Urea nitrogen [Mass/Vol]25 mg/dL9-23[facility] Eastpecific gravity Auto test strip (U) [Rel density]Ordered By: Obie Hylton on 45-50-2572Hcysfdrd gravity (U) [Rel density]1.0151.001-1.030[facility] Eastquamous epithelial cells detection in urine sediment by light microscopyOrdered By: Obie Hylton on 80-47-6815Iamxkxihhb cells.squamous LM Ql (Urine sed)0-1 [HPF]0-2FFairfield Medical CenterUrine bacteria detection by automated methodOrdered By: Obie Hylton on 21-12-1104Gtsgwiwe Auto Ql (U)None seenNone SeenVeterans Health AdministrationUrine clarity by refractometry automatedOrdered By: Obie Hylton on 89-41-2920Ycvdpnk Refractometry automated (U)ClearCleWestern Reserve HospitalUrine glucose measurement by automated test strip (mass/volume)Ordered By: Obie Hylton on 64-81-8128Vsyhftz Auto test strip (U) [Mass/Vol]Normal mg/dLNormal [facility] AdministrationUrine hemoglobin detection by automated test stripOrdered By: Obie Hylton on 32-79-4588Nlxlsafvyw Auto test strip Ql (U)1+ NegativeVeterans Health AdministrationUrine leukocyte esterase detection by automated test stripOrdered By: Obie Hylton on 16-08-6674Ddewgziag esterase Auto test strip Ql (U)NegativeNegativeVeterans Health Administration Urobilinogen Auto test strip (U) [Mass/Vol]Ordered By: Obie Ramirezrow on 70-73-1681Fhwaawwwvhkk (U) [Mass/Vol]Normal mg/dLNormalVeterans Health AdministrationpH Auto test strip (U)Ordered By: Obie Ramirezrow on 07-87-5571aI (U)6.0 [pH]5.0-9.0V[facility] Health AdministrationMAM WU DIGITAL SCREEN BILATERALon 02-01-2022 BI-RADS 1 - Negative, no evidence of malignancy. Normal interval followup in 12 months. OVERALL ASSESSMENT- NEGATIVE A letter of notification will be sent to the patient regarding the results. [facility] CONSOLIDATEDHISTORY: Screening. Family history of breast carcinoma. TECHNIQUE: Bilateral digital screening mammogram with CAD. 2-D and 3-D tomography. FINDINGS: Two views of each breast show scattered areas of fibroglandular density. No change from prior studies, most recent 01/20/2021. Suspicious calcifications: None. Suspicious mass: None. (If skin markers were applied, circles represent skin lesions and linear markers represent scars.) [facility] WU DIGITAL SCREEN BILATERALOrdered By: Ishmael Valentin on 82-20-7318BNV [facility] HOSPITALSeisquare Work Phone: maM WU DIGITAL SCREEN BILATERALon 01-31-2022 Radiology Study observation (narrative)[facility] [email or web address] [employer] Work Phone: XR SHOULDER RIGHT (MIN 2 VIEWS)on 12-02-2021 FINDINGS/IMPRESSION: 1. No significant change since 08/10/2021. 2. Mild AC joint osteoarthrosis remains, with small marginal osteophytes. 3. Osseous ridging from chronic rotator cuff tendinopathy and small reactive subcortical cysts or surgical drill tracks remain in the greater tuberosity of the humerus. 4. No fracture, malalignment, or other acute bony abnormality is seen. [facility] CONSOLIDATEDCLINICAL HISTORY: History of right rotator cuff repair surgery (Z98.890). RIGHT SHOULDER 3 VIEWS: COMPARISON: 08/10/2021. [facility] Norm Jimenez MD - 12/02/2021 CLINICAL HISTORY: History of [...] or other acute bony abnormality is seen. [employer] Work Phone: XR SHOULDER RIGHT (MIN 2 VIEWS)Ordered By: Norm Mcdonnell on 43-53-5236DSZ [place] Phone: xr SHOULDER RIGHT (MIN 2 VIEWS)on 66-38-2870Xpiapeund Study observation (narrative)[employer] Phone: Microscopic Urinalysison 10-26-2021-[employer] Bacteria, UATRACEAbnormalNoneMercy HealthEpithelial Cells UA0 TO 2[facility] Interpretation and review of laboratory resultsAbnormalMercy HealthRBC, UA0 TO 2 Oncimmune HealthWBC, UA0 TO 2Mercy HealthMercy HealthUrinalysis with Reflex to Cultureon 46-12-6701Zsycxcbwa UrineNegativeNEGATIVEMercy HealthColor, UAYellow YellowMercy HealthGlucose, UrNegativeNEGATIVEMercy HealthInterpretation and review of laboratory resultsAbnormalMercy HealthKetones Ql (U)NegativeNEGATIVE [employer] CorpLeukocyte esterase Test strip Ql (U)NegativeNEGATIVEMercy Health Nitrite, UrineNegativeNEGATIVEMercy HealthpH, UA5.5Mercy HealthProtein, UA NegativeNEGATIVEMercy HealthSpecific [place], UA1.025HighMercy HealthTurbidity UAClearClearMercy HealthUrine Hgb2+AbnormalNEGATIVEMercy HealthUrobilinogen, UrineNormalNormalMercy HealthMercy HealthMicroscopic Urinalysison 10-14-2021- [facility] HealthBacteria, UA1+AbnormalNoneMercy HealthEpithelial Cells UA2 TO 5/HPF Mercy HealthInterpretation and review of laboratory resultsAbnormalMercy Health RBC, UA2 TO 5Mercy HealthWBC, UA20 TO 500 /HPFMercy HealthYeast, UAOCCASIONAL AbnormalNoneMercy HealthMercy HealthUrinalysison 37-04-2956Ztmtmxnja Urine NegativeNEGATIVEMercy HealthColor, UAYellowYellowMercy HealthGlucose, UrNegative NEGATIVEMercy HealthInterpretation and review of laboratory resultsAbnormalMercy HealthKetones Ql (U)NegativeNEGATIVEMercy HealthLeukocyte esterase Test strip Ql (U)2+AbnormalNEGATIVEMercy HealthNitrite, UrineNegativeNEGATIVEMercy Health pH, UA6.0Mercy HealthProtein, UATRACEAbnormalNEGATIVEMercy HealthSpecific [place], UA1.020Mercy HealthTurbidity UAHazyAbnormalClearMercy HealthUrinalysis CommentsMercy HealthUrine Hgb2+AbnormalNEGATIVEMercy HealthUrobilinogen, Urine NormalNormalMercy HealthMercy HealthXR SHOULDER RIGHT (MIN 2 VIEWS)on 08-10-2021 Mild degenerative changes. No acute process. [facility] CONSOLIDATEDHISTORY: Pain status post right shoulder arthroscopy TECHNIQUE: 3 views of the right shoulder were obtained COMPARISON: 04/27/2021 FINDINGS: There are mild degenerative changes of acromioclavicular joint. No fracture, dislocation or acute osseous abnormality seen. [facility] John Saunders MD - 08/10/2021 HISTORY: Pain status post right shoulder arthroscopy TECHNIQUE: 3 views of the right shoulder were obtained COMPARISON: 04/27/2021 FINDINGS: There are mild degenerative changes of acromioclavicular joint. No fracture, dislocation or acute osseous abnormality seen. IMPRESSION: Mild degenerative changes. No acute process. [employer] Phone: radiology Study observation (narrative)[employer] Work Phone: XR SHOULDER RIGHT (MIN 2 VIEWS)Ordered By: John Jauregui on 33-70-3718[facility] [facility] Work Phone: MRI Shoulder w/o Righton 31-32-5286TFD Shoulder w/o RightHISTORY: Pain with decreased range of motion after [...] adhesive capsulitis. Report reported and signed by Sj Coronado on 07/12/2021 1110NormalNorthern Michigan Medical SpecialistXR SHOULDER RIGHT (MIN 2 VIEWS)Ordered By: Christian Meyer on 99-00-7988Mdnwgrtuahip changes not unusual for age at the acromioclavicular joint.[employer] Phone: eXAM: XR SHOULDER RIGHT (MIN 2 VIEWS) HISTORY: M25.511. 75-year-old female right shoulder pain. COMPARISON: None. TECHNIQUE: 3 views right shoulder, 4 images. FINDINGS: Moderate degenerative change ac romioclavicular joint. Minimal narrowing glenohumeral joint. Negative for calcific bursitis.[employer] Phone: edi, pn Incoming Radiant Results From [employer] - 04/27/2021 12:21 PM EDT EXAM: XR SHOULDER RIGHT (MIN 2 VIEWS) HISTORY: M25.511. 75-year-old female right shoulder pain. COMPARISON: None. TECHNIQUE: 3 views right shoulder, 4 images. FINDINGS: Moderate degenerative change acromioclavicular joint. Minimal narrowing glenohumeral joint. Negative for calcific bursitis. IMPRESSION: Degenerative changes not unusual for age at the acromioclavicular joint. [employer] Phone: [employer] Phone: cBCOrdered By: Roni Dahl on 77-82-9506Ubmdstnsgv (Bld) [Volume fraction]33.2 %Low36 - 46 %[employer] Phone: Hemoglobin.gastrointestinal spec 1 Ql (Stl)11.5 g/dL Low12.0 - 16.0 g/dLOberon Space Phone: Interpretation and review of laboratory results AbnormalO[employer] Space Phone: mcH (RBC) [Entitic mass]31.6 pg26 - 34 pgO[facility]on Space Phone: MCHC (RBC) [Mass/Vol]34.7 g/dL31 - 37 g/dLOberon Space Phone: MCV (RBC) [Entitic vol]91.2 fL80 - 100 fLOberon Space Phone: NRBC AutomatedNOT REPORTEDper 100 WBCOberon Space Phone: platelet distribution width (Bld) [Ratio]15.6 %High 12.1 - 15.2 %[employer] Phone: platelet mean volume (Bld) [Entitic vol]NOT REPORTED 6.0 - 12.0 OHO[employer] Phone: platelets (Bld) [#/Vol]223 10*3/uLMartin Memorial HospitalPertino Phone: RBC (Bld) [#/Vol]3.64 10*6/uLLow4.0 - 5.2 m/[employer] Phone: WBC (Bld) [#/Vol]4.1 10*3/[employer] Phone: [facility] HospitalPertino Phone: cBCOrdered By: Roni Dahl on 70-55-3441Cfxqbnbgwr (Bld) [Volume fraction]34.2 %Low36 - 46 %[employer] Phone: Hemoglobin.gastrointestinal spec 1 Ql (Stl)11.6 g/dL Low12.0 - 16.0 g/dLMartin Memorial HospitalPertino Phone: Interpretation and review of laboratory results AbnormalMartin Memorial HospitalPertino Phone: MCH (RBC) [Entitic mass]30.6 pg26 - 34 pgMartin Memorial HospitalPertino Phone: MCHC (RBC) [Mass/Vol]33.8 g/dL31 - 37 g/dLMartin Memorial HospitalPertino Phone: MCV (RBC) [Entitic vol]90.7 fL80 - 100 fLOberon Space Phone: NRBC AutomatedNOT REPORTEDper 100 WBCMartin Memorial HospitalPertino Phone: platelet distribution width (Bld) [Ratio]14.1 %12.1 - 15.2 %[employer] Phone: platelet mean volume (Bld) [Entitic vol]NOT REPORTED 6.0 - 12.0 [facility] Phone: Klatelets (Bld) [#/Vol]365 10*3/[place] Phone: RBC (Bld) [#/Vol]3.78 10*6/uLLow4.0 - 5.2 m/[place] Phone: WBC (Bld) [#/Vol]6.3 10*3/[place] Phone: [facility] Phone: cBC Auto DifferentialOrdered By: Darryl Sandoval on [id number] Eos #0.16[facility] Phone: Nbsolute Immature Granulocyte0.35HighMartin Memorial HospitalPertino Phone: Rbsolute Lymph #1.23[facility] Phone: absolute [place] #0.95[facility] Phone: basophils (Bld) [#/Vol]10*3/[place] Phone: Kasophils/100 WBC (Bld)0 %0 - 2 %[employer] Phone: differential TypeNOT REPORTEDMartin Memorial HospitalPertino Phone: eosinophils/100 WBC (Bld)2 %1 - 4 %[employer] Phone: Hematocrit (Bld) [Volume fraction]34.3 %Low36.3 - 47.1 %[employer] Phone: Hemoglobin.gastrointestinal spec 1 Ql (Stl)11.0 g/dL Low11.9 - 15.1 g/dLMartin Memorial HospitalPertino Phone: Immature granulocytes/100 WBC (Bld)5 %Rtfu1FdrdsPertino Phone: Interpretation and review of laboratory results AbnormalMartin Memorial HospitalPertino Phone: Lymphocytes/100 WBC (Bld)16 %Low24 - 43 %[employer] Phone: MCH (RBC) [Entitic mass]30.5 pg25.2 - 33.5 pgMartin Memorial HospitalPertino Phone: MCHC (RBC) [Mass/Vol]32.1 g/dL28.4 - 34.8 g/dLMartin Memorial HospitalPertino Phone: MCV (RBC) [Entitic vol]95.0 fL82.6 - 102.9 fLMartin Memorial HospitalPertino Phone: Monocytes/100 WBC (Bld)12 %3 - 12 %[employer] Phone: NRBC Automated0.00.0 per 100 WBCMartin Memorial HospitalPertino Phone: platelet distribution width (Bld) [Ratio]13.3 %11.8 - 14.4 %[employer] Phone: platelet EstimateNOT REPORTEDMartin Memorial HospitalPertino Phone: Ilatelet mean volume (Bld) [Entitic vol]9.7 fL8.1 - 13.5 fLMartin Memorial HospitalPertino Phone: Platelets (Bld) [#/Vol]242 10*3/uLMartin Memorial HospitalPertino Phone: RBC (Bld) [#/Vol]3.61 10*6/uLLow3.95 - 5.11 m/[place] Phone: RBC (Bld) [#/Vol]NOT REPORTEDMartin Memorial HospitalPertino Phone: Segmented neutrophils/100 WBC (Bld)65 %36 - 65 %[employer] Phone: Segs Absolute5.07MerPertino Phone: WBC (Bld) [#/Vol]7.8 10*3/[email or web address] Work Phone: WBC (Bld) [#/Vol]NOT REPORTEDMartin Memorial [email or web address] Work Phone: [facility] [email or web address] Work Phone: [phone], RapidOrdered By: Darryl Sandoval on [id number]-CoV-2 (COVID-19) RNA JUAQUIN+probe Ql (Unsp spec)Not detectedNot DetectedMartin Memorial HospitalPertino Phone: comment on above: Rapid NAAT: The specimen is [...] management decisions. Fact sheet for Healthcare Providers: https://www.fda.gov/media/372781/download Fact sheet for Patients: https://www.fda.gov/media/974845/download Methodology: Isothermal Nucleic Acid Amplification Specimen Description.NASOPHARYNGEAL SWABMartin Memorial HospitalPertino Phone: [facility] Phone: comprehensive Metabolic PanelOrdered By: Darryl Sandoval on [id number] [Mass/Vol]3 g/dLLow3.5 - 5.2 g/dLMartin Memorial HospitalPertino Phone: albumin/Globulin [Mass ratio]0.8 {ratio}LowMartin Memorial [email or web address] Work Phone: aLP (Bld) [Catalytic activity/Vol]154 U/LHigh35 - 104 U/LMercy Health Work Phone: ULT [Catalytic activity/Vol]45 U/LHigh5 - 33 U/LMercy Health Work Phone: anion gap [Moles/Vol]11 mmol/L9 - 17 mmol/LMercy Health Work Phone: PST [Catalytic activity/Vol]44 U/LHigh<32[facility] Work Phone: bilirubin [Mass/Vol]0.35 mg/dL0.3 - 1.2 mg/dLMer [employer] Work Phone: calcium [Mass/Vol]9.4 mg/dL8.6 - 10.4 mg/dLOhiohealth [facility] [employer] Work Phone: Jhloride [Moles/Vol]103 mmol/L98 - 107 mmol/LMercy Health Work Phone: cO2 [Moles/Vol]21 mmol/L20 - 31 mmol/LMercy Health Work Phone: creatinine [Mass/Vol]1 mg/dLHigh0.50 - 0.90 mg/dLOhiohealth [facility] City [facility] [employer] Work Phone: Free PSA/Total PSA [Mass fraction]7.0 g/dL6.4 - 8.3 g/dLOhiohealth Grove City [facility] [employer] Work Phone: GFR >60>60 mL/minMer Health Work Phone: GFR Non- Usowkdne05 mL/minLow>60[facility] Work Phone: Glucose [Mass/Vol]87 mg/dL70 - 99 mg/dLOhiohealth [facility] City [facility] [employer] Work Phone: Interpretation and review of laboratory results AbnormalMer [employer] Work Phone: potassium [Moles/Vol]4.1 mmol/L3.7 - 5.3 mmol/LMercy Health Work Phone: sodium [Moles/Vol]135 mmol/L135 - 144 mmol/LMdiley ridge medical centery [employer] Work Phone: Urea nitrogen (BldV) [Mass/Vol]16 mg/dL8 - 23 mg/dL [facility] [employer] Phone: Urea nitrogen/Creatinine (Bld) [Mass ratio]16[facility] Phone: [facility] Phone: laboratory - Chemistry and Chemistry - challenge Ordered By: Darryl Sandoval on [id number]/1.73 sq M.predicted MDRD (S/P/Bld) [Vol rate/Area][facility] Phone: comment on above:Average GFR for 70 or more years old: 75 mL/min/1.73sq m Chronic Kidney Disease: <60 mL/min/1.73sq m Kidney failure: <15 mL/min/1.73sq m eGFR calculated using average adult body mass. Additional eGFR calculator available at: http://www.[employer]/multiple_crcl_2012.htm Stage 1: Some kidney damage normal GFR Stage 2: Mild kidney damage GFR 60-89 Stage 3: Moderate kidney damage GFR 30-59 Stage 4: Severe kidney damage GFR 15-29 Stage 5: Severe kidney damage GFR <15 ESRD - chronic treatment by dialysis or transplant LipaseOrdered By: Darryl Sandoval on [id number] [Catalytic activity/Vol] 24 U/L13 - 60 U/LMthe [facility] [employer] Work Phone: [facility] Phone: MagnesiumOrdered By: Darryl Sandoval on 11-27-2020 Magnesium [Mass/Vol]2.3 mg/dL1.6 - 2.6 mg/dLMartin Memorial HospitalPertino Phone: [facility] Phone: Urinalysis with MicroscopicOrdered By: Darryl Sandoval on 11-27-2020-[facility] Work Phone: Amorphous, UANOT REPORTEDNoneMercy Health Work Phone: bacteria, UATRACEAbnormalNoneMercy Health Work Phone: bilirubin UrineNegativeNEGATIVEMercy Health Work Phone: casts UANOT REPORTED/LPFMercy Health Work Phone: Polor, UAYELLOWYELLOWMercy Health Work Phone: crystals, UANOT REPORTEDNone /HPFMercy Health Work Phone: epithelial Cells UA2 TO 5[facility] Work Phone: Glucose, UrNegativeNEGATIVEMercy Health Work Phone: Interpretation and review of laboratory results AbnormalMercy Health Work Phone: Ketones Ql (U)NegativeNEGATIVEMercy Health Work Phone: leukocyte esterase Test strip Ql (U)NegativeNEGATIVE [facility] Work Phone: Mucus, UATRACEAbnormalNoneMercy Health Work Phone: Nitrite, UrineNegativeNEGATIVEMercy Health Work Phone: Other Observations UANOT REPORTEDNOT REQ.[facility] Work Phone: pH, UA6.0[facility] Work Phone: Hrotein, UANegativeNEGATIVEMercy Health Work Phone: rBC, UA2 TO 5[facility] Work Phone: renal Epithelial, UANOT REPORTED0 /HPFMercy Health Work Phone: Jpecific [place], UA1.025HighMercy Health Work Phone: Trichomonas, UANOT REPORTEDNoneMercy Health Work Phone: Turbidity UACLEARCLEARMer Health Work Phone: Urinalysis CommentsNOT REPORTEDOhiohealth [facility] Work Phone: Urine Hgb1+AbnormalNEGATIVEOhiohealth [facility] Work Phone: Urobilinogen, UrineNormalNormalOhiohealth [facility] Work Phone: WBC, UA0 TO 2[facility] Work Phone: Yeast, UANOT REPORTEDNoneMey Health Work Phone: [facility] Work Phone: comprehensive Metabolic PanelOrdered By: Roni Dahl on [id number] [Mass/Vol]3.5 g/dL3.5 - 5.2 g/dLOhiohealth Grove [facility] Work Phone: albumin/Globulin RatioNOT REPORTEDOhiohealth [facility] Work Phone: aLP (Bld) [Catalytic activity/Vol]67 U/L35 - 104 U/L [facility] Work Phone: aLT [Catalytic activity/Vol]22 U/L5 - 33 U/LMercy Health Work Phone: anion gap [Moles/Vol]7 mmol/LLow9 - 17 mmol/LMdiley ridge medical centery Health Work Phone: aST [Catalytic activity/Vol]21 U/L<32Mer [employer] Work Phone: bilirubin [Mass/Vol]0.35 mg/dL0.30 - 1.20 mg/dLOhiohealth [facility] Work Phone: calcium [Mass/Vol]8.9 mg/dL8.6 - 10.4 mg/dLOhiohealth [facility] City [facility] Work Phone: chloride [Moles/Vol]103 mmol/L98 - 107 mmol/LMthe [facility] Work Phone: cO2 [Moles/Vol]26 mmol/L20 - 31 mmol/LMthe [facility] [employer] Phone: creatinine [Mass/Vol]0.98 mg/dLHigh0.50 - 0.90 mg/dL [facility] [employer] Phone: Free PSA/Total PSA [Mass fraction]6.3 g/dLLow6.4 - 8.3 g/dLMartin Memorial HospitalPertino Phone: GFR >60>60 mL/minOhiohealth Grove City Methodist Hospital [employer] Phone: GFR Non- Upfacgjr89 mL/minLow>60[facility] [employer] Phone: GFR/1.73 sq M.predicted MDRD (S/P/Bld) [Vol rate/Area] [facility] [employer] Phone: comment on above:Average GFR for 70 or more years old: 75 mL/min/1.73sq m Chronic Kidney Disease: <60 mL/min/1.73sq m Kidney failure: <15 mL/min/1.73sq m eGFR calculated using average adult body mass. Additional eGFR calculator available at: http://www.[employer]/multiple_crcl_2012.htm GFR/1.73 sq M.predicted MDRD (S/P/Bld) [Vol rate/Area]NOT REPORTEDOhiohealth [facility] [employer] Phone: Glucose [Mass/Vol]94 mg/dL70 - 99 mg/dLMartin Memorial HospitalPertino Phone: Interpretation and review of laboratory results AbnormalOhiohealth Grove [facility] Hospital [employer] Phone: potassium [Moles/Vol]3.3 mmol/LLow3.7 - 5.3 mmol/L [facility] [employer] Phone: sodium [Moles/Vol]136 mmol/L135 - 144 mmol/LMthe [facility] hospital [employer] Phone: Urea nitrogen (BldV) [Mass/Vol]16 mg/dL8 - 23 mg/dL [employer] Phone: Urea nitrogen/Creatinine (Bld) [Mass ratio]16[facility] Phone: [facility] Phone: amylaseOrdered By: Naida Grissom on [id number] [Catalytic activity/Vol]141 U/LHigh28 - 100 U/LMLocalBonus Phone: Interpretation and review of laboratory results AbnormalMartin Memorial HospitalPertino Phone: basic Metabolic PanelOrdered By: Naida Grissom on 54-67-8001Rqzqk gap [Moles/Vol]10 mmol/L9 - 17 mmol/LMVengo Labsy [employer] Phone: calcium [Mass/Vol]8.9 mg/dL8.6 - 10.4 mg/dLMartin Memorial HospitalPertino Phone: chloride [Moles/Vol]105 mmol/L98 - 107 mmol/LMLocalBonus Phone: cO2 [Moles/Vol]21 mmol/L20 - 31 mmol/LMLocalBonus Phone: creatinine [Mass/Vol]1.06 mg/dLHigh0.50 - 0.90 mg/dL [employer] Phone: GFR >60>60 mL/minMartin Memorial HospitalPertino Phone: GFR Non- Azzteahl61 mL/minLow>60[facility] Phone: GFR/1.73 sq M.predicted MDRD (S/P/Bld) [Vol rate/Area] [employer] Phone: comment on above:Average GFR for 70 or more years old: 75 mL/min/1.73sq m Chronic Kidney Disease: <60 mL/min/1.73sq m Kidney failure: <15 mL/min/1.73sq m eGFR calculated using average adult body mass. Additional eGFR calculator available at: http://www.[employer]/multiple_crcl_2012.htm GFR/1.73 sq M.predicted MDRD (S/P/Bld) [Vol rate/Area]NOT REPORTEDMartin Memorial HospitalPertino Phone: Glucose [Mass/Vol]139 mg/uUNsms21 - 99 mg/dLOhiohealth [facility] City [facility] [employer] Phone: Interpretation and review of laboratory results AbnormalMartin Memorial HospitalPertino Phone: potassium [Moles/Vol]3.4 mmol/LLow3.7 - 5.3 mmol/L [facility] [employer] Phone: sodium [Moles/Vol]136 mmol/L135 - 144 mmol/LMthe [facility] hospital [employer] Phone: Urea nitrogen (BldV) [Mass/Vol]22 mg/dL8 - 23 mg/dL [facility] [employer] Phone: Urea nitrogen/Creatinine (Bld) [Mass ratio]21HighMartin Memorial HospitalPertino Phone: [facility] Phone: cBC auto differentialOrdered By: Naida Grissom on [id number] Eos #0.10[facility] Phone: absolute Immature GranulocyteNOT REPORTEDMartin Memorial HospitalPertino Phone: absolute Lymph #0.60LowMartin Memorial HospitalPertino Phone: absolute [place] #0.40[facility] Phone: basophils (Bld) [#/Vol]0.00 10*3/uLMartin Memorial HospitalPertino Phone: basophils/100 WBC (Bld)0 %0 - 2 %[facility] CenterTur[facility] Phone: differential TypeYESMthe bellevue hospital [employer] Phone: eosinophils/100 WBC (Bld)1 %0 - 5 %[employer] Phone: Hematocrit (Bld) [Volume fraction]37.6 %36 - 46 %[employer] Phone: Hemoglobin.gastrointestinal spec 1 Ql (Stl)12.9 g/dL 12.0 - 16.0 g/dLOberon Space Phone: Immature GranulocytesNOT REPORTED0 %[employer] Phone: Interpretation and review of laboratory results AbnormalO[employer] Phone: lymphocytes/100 WBC (Bld)8 %Low15 - 40 %[employer] Phone: MCH (RBC) [Entitic mass]31.8 pg26 - 34 pgMartin Memorial HospitalPertino Phone: MCHC (RBC) [Mass/Vol]34.4 g/dL31 - 37 g/dLMartin Memorial HospitalPertino Phone: MCV (RBC) [Entitic vol]92.4 fL80 - 100 fLOber[address] Phone: Monocytes/100 WBC (Bld)6 %4 - 8 %[employer] Phone: NRBC AutomatedNOT REPORTEDper 100 WBCOberon Space Phone: platelet distribution width (Bld) [Ratio]14.1 %12.1 - 15.2 %[employer] Phone: platelet EstimateNOT REPORTEDMartin Memorial HospitalPertino Phone: platelet mean volume (Bld) [Entitic vol]NOT REPORTED 6.0 - 12.0 fLOber[facility] [employer] Phone: platelets (Bld) [#/Vol]179 10*3/uLMartin Memorial HospitalPertino Phone: rBC (Bld) [#/Vol]4.07 10*6/uL4.0 - 5.2 m/uLMartin Memorial HospitalPertino Phone: RBC (Bld) [#/Vol]NOT REPORTEDMartin Memorial HospitalPertino Phone: segmented neutrophils/100 WBC (Bld)85 %High47 - 75 % [facility] CenterTur[facility] Phone: Eegs Absolute5.80[facility] Phone: WBC (Bld) [#/Vol]6.9 10*3/uLMartin Memorial HospitalPertino Phone: WBC (Bld) [#/Vol]NOT REPORTEDMartin Memorial HospitalPertino Phone: [facility] Phone: Hepatic Function PanelOrdered By: Naida Grissom on [id number] [Mass/Vol]3.7 g/dL3.5 - 5.2 g/dLMartin Memorial HospitalPertino Phone: albumin/Globulin RatioNOT REPORTEDMartin Memorial HospitalPertino Phone: aLP (Bld) [Catalytic activity/Vol]84 U/L35 - 104 U/L [facility] Center[facility] Phone: aLT [Catalytic activity/Vol]63 U/LHigh5 - 33 U/LMthe [facility] hospital [employer] Phone: aST [Catalytic activity/Vol]104 U/LHigh<32[facility] Phone: bilirubin [Mass/Vol]0.49 mg/dL0.30 - 1.20 mg/dLMartin Memorial HospitalPertino Phone: bilirubin, IndirectCANNOT BE CALCULATED0.00 - 1.00 mg/dLMartin Memorial HospitalPertino Phone: bilirubin.indirect [Mass/Vol]mg/dL<0.31 mg/dLMartin Memorial HospitalPertino Phone: Free PSA/Total PSA [Mass fraction]6.9 g/dL6.4 - 8.3 g/dLMartin Memorial Hospital50 [facility] Work Phone: GlobulinNOT REPORTED1.5 - 3.8 g/dLMercy Health Work Phone: Interpretation and review of laboratory results AbnormalMercy Health Work Phone: [facility] Work Phone: lipaseOrdered By: Naida Grissom on [id number] [Catalytic activity/Vol]50 U/L13 - 60 U/LMercy Health Work Phone: Microscopic UrinalysisOrdered By: Naida Grissom on 11-18-2020-[facility] Work Phone: amorphous, UANOT REPORTEDNoneMercy Health Work Phone: bacteria, UA1+AbnormalNoneMer[facility] Health Work Phone: casts UANOT REPORTED/LPFMercy Health Work Phone: crystals, UANOT REPORTEDNone /HPFMercy Health Work Phone: epithelial Cells UA0 TO 2/HPFMercy Health Work Phone: Mucus, UANOT REPORTEDNoneMer[facility] Work Phone: Other Observations UANOT REPORTEDNOT REQ.[facility] Work Phone: rBC, UA0 TO 2[facility] Work Phone: renal Epithelial, UANOT REPORTED0 /HPFMercy Health Work Phone: Trichomonas, UANOT REPORTEDNoneMercy Health Work Phone: WBC, UA2 TO 50 /HPFMercy Health Work Phone: Yeast, UANOT REPORTEDNoneMercy Health Work Phone: No Panel InformationOrdered By: Naida Grissom on [id number] and review of laboratory resultsAbnormalMercy Health Work Phone: [facility] Work Phone: [facility] Work Phone: Urinalysis, reflex to microscopicOrdered By: Naida Grissom on [id number] UrineNegativeNEGATIVEOhiohealth [facility] Work Phone: color, UAAMBERAbnormalYELLOWMer Health Work Phone: Glucose, UrNegativeNEGATIVEOhiohealth [facility] Work Phone: Ketones Ql (U)NegativeNEGATIVEOhiohealth [facility] Work Phone: leukocyte esterase Test strip Ql (U)1+AbnormalNEGATIVE [facility] Work Phone: Nitrite, UrineNegativeNEGATIVEOhiohealth [facility] Work Phone: pH, UA5.0[facility] Work Phone: protein, UANegativeNEGATIVEOhiohealth [facility] Work Phone: specific [place], UA1.025[facility] Work Phone: Turbidity UACLEARCLEAROhiohealth Grove City Methodist Hospital [facility] Work Phone: Urinalysis CommentsOhiohealth Grove City [facility] Work Phone: Urine Hgb1+AbnormalNEGATIVEOhiohealth [facility] Work Phone: Urobilinogen, UrineNormalNormalOhiohealth [facility] Work Phone: cBC Auto Differentialon [id number] (Bld) [#/Vol]0.00 10*3/uLMercy Health Work Phone: basophils/100 WBC (Bld)0 %0 - 2 %[facility] Work Phone: differential TypeYESMercy Health Work Phone: eosinophils (Bld) [#/Vol]0.10 10*3/uLO[employer] Phone: eosinophils/100 WBC (Bld)2 %0 - 5 %[employer] Phone: erythrocyte distribution width (RBC) [Ratio]14.3 %12.1 - 15.2 %[employer] Phone: Hematocrit (Bld) [Volume fraction]36.5 %36 - 46 %[employer] Phone: Hemoglobin (Bld) [Mass/Vol]12.3 g/dL12 - 16 g/dLMartin Memorial HospitalPertino Phone: Interpretation and review of laboratory results AbnormalMartin Memorial HospitalPertino Phone: lymphocytes (Bld) [#/Vol]1.20 10*3/[employer] Phone: Lymphocytes/100 WBC (Bld)24 %15 - 40 %[employer] Phone: MCH (RBC) [Entitic mass]32.7 pg26 - 34 pgMartin Memorial HospitalPertino Phone: MCHC (RBC) [Mass/Vol]33.9 g/dL31 - 37 g/dLMartin Memorial HospitalPertino Phone: MCV (RBC) [Entitic vol]96.6 fL80 - 100 [facility]: Monocytes (Bld) [#/Vol]0.50 10*3/uLO[employer] Phone: Monocytes/100 WBC (Bld)9 %High4 - 8 %[employer] Phone: platelet mean volume (Bld) [Entitic vol]NOT REPORTED6 - 12 fLOber[address] Space Phone: platelets (Bld) [#/Vol]NOT REPORTEDMartin Memorial HospitalPertino Phone: Platelets (Bld) [#/Vol]223 10*3/uLOhiohealth Grove City Methodist Hospital [employer] Work Phone: RBC (Bld) [#/Vol]3.77 10*6/uLLow4 - 5.2 m/[email or web address] Work Phone: EBC morphology finding Nom (Bld)NOT REPORTEDOhiohealth [facility] [employer] Work Phone: Eegmented neutrophils/100 WBC (Bld)65 %47 - 75 %[facility] [employer] Work Phone: Jegs Absolute3.30[facility] [employer] Work Phone: WBC (Bld) [#/Vol]5.1 10*3/[email or web address] Work Phone: WBC (Bld) [#/Vol]NOT REPORTEDper 100 WBCOhiohealth Grove City Methodist Hospital [employer] Work Phone: WBC MorphologyNOT REPORTEDMartin Memorial [email or web address] Work Phone: comprehensive Metabolic Panelon [phone] [Mass/Vol]3.9 g/dL3.5 - 5.2 g/dLOhiohealth Grove City [facility] [employer] Work Phone: Ylbumin/Globulin [Mass ratio]NOT REPORTEDMartin Memorial [email or web address] Work Phone: FLP [Catalytic activity/Vol]76 U/L35 - 104 U/LMdiley ridge medical centery [employer] Work Phone: aLT [Catalytic activity/Vol]16 U/L5 - 33 U/LMthe [facility] [employer] Work Phone: anion gap [Moles/Vol]10 mmol/L9 - 17 mmol/LMercy [employer] Work Phone: aST [Catalytic activity/Vol]19 U/L<32Martin [facility] [email or web address] Work Phone: bilirubin Ql (U)0.35 mg/dL0.3 - 1.2 mg/dLOhiohealth Grove City [facility] [employer] Work Phone: bun/Cre Cvdbt81DmmtIgipr Health Work Phone: calcium [Mass/Vol]9.9 mg/dL8.6 - 10.4 mg/dLMartin Memorial HospitalPertino Phone: chloride [Moles/Vol]105 mmol/L98 - 107 mmol/LMercy [employer] Work Phone: cO2 [Moles/Vol]25 mmol/L20 - 31 mmol/LMercy [employer] Work Phone: creatinine [Mass/Vol]1.14 mg/dLHigh0.5 - 0.9 mg/dL [facility] Phone: GFR Thcxraxa45 mL/minLow>[email or web address] Work Phone: GFR Non- Qindfgtl66 mL/minLow>60Martin [facility] [email or web address] Work Phone: GFR/1.73 sq M predicted among non-blacks MDRD (S/P/Bld) [Vol rate/Area][facility] Center[facility] Phone: comment on above:Average GFR for 70 or more years old: 75 mL/min/1.73sq m Chronic Kidney Disease: <60 mL/min/1.73sq m Kidney failure: <15 mL/min/1.73sq m eGFR calculated using average adult body mass. Additional eGFR calculator available at: http://www.[employer]/multiple_crcl_2012.htm GFR/1.73 sq M predicted among non-blacks MDRD (S/P/Bld) [Vol rate/Area]NOT REPORTEDMartin Memorial HospitalPertino Phone: Glucose [Mass/Vol]98 mg/dL70 - 99 mg/dLMartin Memorial HospitalPertino Phone: Interpretation and review of laboratory results AbnormalMartin Memorial HospitalPertino Phone: potassium [Moles/Vol]4.3 mmol/L3.7 - 5.3 mmol/LMdiley ridge medical centery [employer] Work Phone: protein [Mass/Vol]6.7 g/dL6.4 - 8.3 g/dLOhiohealth [facility] City [facility] [employer] Phone: sodium [Moles/Vol]140 mmol/L135 - 144 mmol/LMercy [employer] Phone: Urea nitrogen [Mass/Vol]26 mg/dLHigh8 - 23 mg/dLOhiohealth [facility] [employer] Phone: lipid Panelon [id number] [Mass/Vol]126 mg/dL<200[facility] [employer] Phone: comment on above: Cholesterol Guidelines: <200 Desirable 200-240 Borderline >240 Undesirable Cholesterol in HDL [Mass/Vol]45 mg/dL>40[facility] [employer] Phone: comment on above: HDL Guidelines: <40 Undesirable 40-59 Borderline >59 Desirable Cholesterol in LDL [Mass/Vol]62 mg/dL0 - 130 mg/dLOhiohealth [facility] City [facility] [employer] Phone: comment on above: LDL Guidelines: <100 Desirable 100-129 Near to/above Desirable 130-159 Borderline >159 Undesirable Direct (measured) LDL and calculated LDL are not interchangeable tests. Cholesterol in VLDL [Mass/Vol]NOT REPORTED1 - 30 mg/dLOhiohealth [facility] City [facility] [employer] Phone: cholesterol.total/Cholesterol in HDL [Mass ratio]2.8 {ratio}<5Mer [employer] Phone: Triglyceride [Mass/Vol]94 mg/dL<150[facility] [employer] Phone: comment on above: Triglyceride Guidelines: <150 Desirable 150-199 Borderline 200-499 High >499 Very high Based on AHA Guidelines for fasting triglyceride, March 2012. Magnesiumon 22-25-2531Uuyotxihu [Mass/Vol]2.1 mg/dL1.6 - 2.6 mg/dLOhiohealth Grove City [facility] [employer] Phone: Otheron [phone] granulocytes (Bld) [#/Vol] NOT REPORTEDOhiohealth Grove City [facility] Hospital [employer] Phone: patient Fasting?on [phone] Fasting?[email or web address] Work Phone: TSH with Reflexon [phone] Qn2.05 m[IU]/LMerc [employer] Work Phone: Vitamin D 25 Hydroxyon [phone] D, 25-Apdhzii96.9 ng/mL30 - 100 ng/mLMartin Memorial [email or web address] Work Phone: comment on above: Reference Range: Vitamin D status Range Deficiency <20 ng/mL Mild Deficiency 20-30 ng/mL Sufficiency 30-100 ng/mL Toxicity >100 ng/mL CBC Auto Differentialon [phone] (Bld) [#/Vol]0.00 10*3/[facility]- [place], [place]Basophils/100 WBC (Bld)1 %0 - 2 %[facility]- [place], [place]Differential TypeYESMthe [facility] Health- [place], [place]YEosinophils (Bld) [#/Vol]0.10 10*3/uLOhiohealth Grove City [facility] Hospital Health- [place], [place]YEosinophils/100 WBC (Bld)1 %0 - 5 %[facility]- [place], KYErythrocyte distribution width (RBC) [Ratio]14.2 %12.1 - 15.2 %[facility]- [place], [place] Hematocrit (Bld) [Volume fraction]37.4 %36 - 46 %[facility]- [place], KYHemoglobin (Bld) [Mass/Vol]12.4 g/dL12 - 16 g/dLOhiohealth [facility]- [place], KYInterpretation and review of laboratory resultsAbnormalOhiohealth [facility]- [place], KYLymphocytes (Bld) [#/Vol]1.50 10*3/[facility]- [place], KYLymphocytes/100 WBC (Bld)24 %15 - 40 % [facility]- [place], KYMCH (RBC) [Entitic mass]32.1 pg26 - 34 pgOhiohealth [facility]- [place], KYMCHC (RBC) [Mass/Vol]33.2 g/dL31 - 37 g/dLOhiohealth [facility]- [place], KYMCV (RBC) [Entitic vol]96.7 fL80 - 100 fLOhiohealth [facility]- [place], KYMonocytes (Bld) [#/Vol]0.50 10*3/[facility], KYMonocytes/100 WBC (Bld)9 %High4 - 8 %[facility], KYPlatelet mean volume (Bld) [Entitic vol]NOT REPORTED6 - 12 fLThe [facility] of [facility], KYPlatelets (Bld) [#/Vol]205 10*3/[facility], KYPlatelets (Bld) [#/Vol]NOT REPORTEDThe [facility], KYRBC (Bld) [#/Vol]3.87 10*6/uLLow4 - 5.2 m/[facility], KYRBC morphology finding Nom (Bld)NOT REPORTEDThe [facility], DELONTESegmented neutrophils/100 WBC (Bld)65 %47 - 75 %[facility], KYSegs Absolute4.10[facility], KYWBC (Bld) [#/Vol]NOT REPORTEDper 100 WBC [facility], KYWBC (Bld) [#/Vol]6.2 10*3/[facility], KYWBC MorphologyNOT REPORTEDThe [facility], INCT Head WO Contraston [id number] head without contrast CLINICAL: Dizziness multiple falls. [...] thickening without air-fluid levels.. Bilateral mastoid air cellsare clear. The ventricles and sulci are normal for age and symmetric bilaterally. There is mild silvina ventricular and deep subcortical white matter low attenuation, most consistent with small vessel ischemic disease. There is no intraparenchymal hemorrhage, extraaxial fluid collection, mass lesion, or acute large vessel ischemia by noncontrast CT. There is intracranial atherosclerosis.[facility], [place], [place] Incoming Radiant Results From [employer]/Pacs - 03/31/2020 4:[address] head [...] MRI would be recommended for further evaluation. [facility], KY1. No acute intracranial abnormality. 2. Stable chronic small vessel ischemic disease. 3. Intracranial atherosclerosis. If the patient has a focal neurologic deficit or there is clinical suspicion for acute cerebrovascular accident, brain MRI would be recommended for further evaluation. [facility], INComprehensive Metabolic Panel w/ Reflex to MGon 03-31-2020 Albumin [Mass/Vol]4.2 g/dL3.5 - 5.2 g/dLThe [facility] of [facility], INAlbumin/Globulin [Mass ratio]NOT REPORTEDThe [facility], INALP [Catalytic activity/Vol]75 U/L35 - 104 U/LMZanesville City Hospital, INALT [Catalytic activity/Vol]11 U/L5 - 33 U/[facility], INAnion gap [Moles/Vol]8 mmol/LLow9 - 17 mmol/[facility], [place] AST [Catalytic activity/Vol]17 U/L<32[facility], INBilirubin Ql (U)0.38 mg/dL0.3 - 1.2 mg/dLThe [facility] of [facility], INBun/Cre Kwtza35[facility]Hg[facility]- [place], [place] Calcium [Mass/Vol]9.1 mg/dL8.6 - 10.4 mg/dLThe [facility], KYChloride [Moles/Vol]98 mmol/L98 - 107 mmol/LMNorwalk Memorial [facility] [place], KYCO2 [Moles/Vol]28 mmol/L 20 - 31 mmol/LMNorwalk Memorial Hospital [place], KYCreatinine [Mass/Vol]1.04 mg/dLHigh0.5 - 0.9 mg/dLThe [facility], KYGFR >60>60 mL/minThe [facility] of [facility], [place] GFR Non- Qjgakxlm15 mL/minLow>60[facility], KYGFR/1.73 sq M predicted among non-blacks MDRD (S/P/Bld) [Vol rate/Area][facility], [place] Comment on above:Average GFR for 70 or more years old: 75 mL/min/1.73sq m Chronic Kidney Disease: <60 mL/min/1.73sq m Kidney failure: <15 mL/min/1.73sq m eGFR calculated using average adult body mass. Additional eGFR calculator available at: http://www.[employer],LLC/multiple_crcl_2012.htm GFR/1.73 sq M predicted among non-blacks MDRD (S/P/Bld) [Vol rate/Area]NOT REPORTEDThe [facility], INGlucose [Mass/Vol]94 mg/dL70 - 99 mg/dLThe [facility], INInterpretation and review of laboratory resultsAbnormalThe [facility], KYPotassium [Moles/Vol]4.2 mmol/L3.7 - 5.3 mmol/LMZanesville City Hospital, KYProtein [Mass/Vol]7.1 g/dL6.4 - 8.3 g/dLThe [facility], KYSodium [Moles/Vol]134 mmol/L Mqu278 - 144 mmol/LMZanesville City Hospital, KYUrea nitrogen [Mass/Vol]22 mg/dL8 - 23 mg/dLThe [facility], KYMicroscopic Urinalysison [id number], UANOT REPORTEDNoneMeCherrington Hospital, KYBacteria, UANOT REPORTEDNoneMercy Health- [place], [place] Casts UANOT REPORTED/LPFMercy Health- [place], KYCrystals, UANOT REPORTEDNone /HPF [facility]- [place], KYEpithelial Cells UA0 TO 2/HPFMercy Health- [place], KYMucus, UA NOT REPORTEDNoneMercy Health- [place], KYOther Observations UANOT REPORTEDNOT REQ. [facility]- [place], KYRBC (U) [#/Vol]2 TO 5[facility]- [place], KYRenal Epithelial, UANOT REPORTED0 /HPFMercy Health- [place], KYTrichomonas, UANOT REPORTEDNoneMercy Health- [place], KYWBC, UA0 TO 20 /HPFMercy Health- [place], KYYeast, UANOT REPORTEDNone [facility]- [place], [place]-[facility]- [place], KYOtheron [id number] granulocytes (Bld) [#/Vol]NOT REPORTED0 %[facility]- [place], INTS with Reflexon [id number] Qn1.98 m[IU]/LMercy Health- [place], KYTroponinon [id number] I.cardiac [Mass/Vol][facility]- [place], INComment on above:Reference Range: <0.03 Within reference range. 0.03-0.09 Possible myocardial damage. Repeat at appropriate intervals to rule out chronic elevation. >= 0.10 Indicative of myocardial damage. Patients with high levels of Biotin oral intake (i.e >5mg/day) may have falsely decreased Troponin T levels. Samples collected within 8 hours of biotin intake may require additional information for diagnosis. Troponin T.cardiac [Mass/Vol]ug/L<0.03 ng/mLParkview Health- [place], INComment on above:Troponin T results cannot be compared to Troponin-I results.Troponin, High SensitivityNOT REPORTED0 - 14 ng/LMercy Health- [place], KYUrinalysis, reflex to microscopicon [id number] UrineNegativeNEGATIVEMercy Health- [place], [place] Color, UAYELLOWYELLOWMercy Health- [place], KYGlucose, UrNegativeNEGATIVEMercy Health- [place], KYInterpretation and review of laboratory resultsAbnormalMercy Health- [place], KYKetones Ql (U)NegativeNEGATIVEMercy Health- [place], KYLeukocyte esterase Test strip Ql (U)NegativeNEGATIVEMercy Health- [place], KYNitrite, Urine NegativeNEGATIVEMercy Health- [place], KYpH, UA7.0[facility]- [place], KYProtein (U) [Mass/Vol]NegativeNEGATIVEMercy Health- [place], KYSpecific [place], UA1.005Mer [facility]- [place], KYTurbidity UACLEARCLEARMer Health- [place], KYUrinalysis CommentsMer Health- [place], KYUrine HgbTRACEAbnormalNEGATIVEMercy Health- [place], KYUrobilinogen, UrineNormalNormalMer Health- [place], KYXR CHEST PORTABLEon [id number] chest.[facility] Medical CenterFreta.láMERCY HOSPITAL ST[facility] JOHN'S, DELONTEEdi, [place] Incoming Radiant Results From [employer] - 03/31/2020 2:47 PM EDT EXAM: XR CHEST PORTABLE HISTORY: Reason for exam:->gen weakness 74-year-old female COMPARISON: Chest 07/07/2019 TECHNIQUE: AP portable chest 1424 hours FINDINGS: Heart size normal. Lungs clear. Bony thorax and upper abdomen normal. IMPRESSION: Negative chest. [facility] IS PharmaMERCY H[facility]ITAL ST[facility] JOHN'S, KYEXAM: XR CHEST PORTABLE HISTORY: Reason for exam:->gen weakness 74-year-old female COMPARISON: Chest 07/07/2019 TECHNIQUE: AP portable chest 1424 hours FINDINGS: Heart size normal. Lungs clear. Bonythorax and upper abdomen normal.SongAfter [place], [facility] Auto DifferentialOrdered By: Reagan Pascal on [id number] Eos #0.10[facility] [email or web address] Work Phone: absolute Immature GranulocyteNOT REPORTEDMartin Memorial [email or web address] Work Phone: absolute Lymph #1.20[facility] HospitalPertino Phone: absolute [place] #0.40[facility] HospitalPertino Phone: basophils (Bld) [#/Vol]0.00 10*3/uLMartin Memorial [email or web address] Work Phone: basophils/100 WBC (Bld)0 %0 - 2 %[employer] Work Phone: differential TypeYESMercTurf [employer]ography [employer] Phone: eosinophils/100 WBC (Bld)2 %0 - 5 %[employer] Phone: erythrocyte distribution width (RBC) [Ratio]14.6 %12.1 - 15.2 %[employer] Phone: Hematocrit (Bld) [Volume fraction]35.9 %Low36 - 46 % [employer] Phone: Hemoglobin (Bld) [Mass/Vol]12.2 g/dL12 - 16 g/dLMartin Memorial HospitalPertino Phone: Immature GranulocytesNOT REPORTED0 %[employer] Phone: Interpretation and review of laboratory results AbnormalMartin Memorial HospitalPertino Phone: lymphocytes/100 WBC (Bld)28 %15 - 40 %[employer] Phone: MCH (RBC) [Entitic mass]33.2 pg26 - 34 pgMartin Memorial HospitalPertino Phone: MCHC (RBC) [Mass/Vol]34.1 g/dL31 - 37 g/dLMartin Memorial HospitalPertino Phone: MCV (RBC) [Entitic vol]97.3 fL80 - 100 [facility] HospitalP[facility] Phone: Monocytes/100 WBC (Bld)10 %High4 - 8 %[employer] Phone: MPVNOT REPORTED6 - 12 fLMartin Memorial HospitalPertino Phone: NRBC AutomatedNOT REPORTEDper 100 WBCMartin Memorial HospitalPertino Phone: platelet EstimateNOT REPORTEDMartin Memorial HospitalPertino Phone: platelets (Bld) [#/Vol]223 10*3/uLMerPertino Phone: rBC (Bld) [#/Vol]3.69 10*6/uLLow4 - 5.2 m/uLMartin Memorial [email or web address] Work Phone: rBC morphology finding Nom (Bld)NOT REPORTEDMartin Memorial [email or web address] Work Phone: Jegmented neutrophils/100 WBC (Bld)60 %47 - 75 %[facility] [employer] Work Phone: Wegs Absolute2.60[facility] [email or web address] Work Phone: WBC (Bld) [#/Vol]4.4 10*3/uLMartin Memorial [email or web address] Work Phone: WBC MorphologyNOT REPORTEDMartin Memorial [email or web address] Work Phone: comprehensive Metabolic PanelOrdered By: Reagan Pascal on [id number] [Mass/Vol]4.2 g/dL3.5 - 5.2 g/dLMartin Memorial [email or web address] Work Phone: albumin/Globulin RatioNOT REPORTEDMartin Memorial [email or web address] Work Phone: aLP [Catalytic activity/Vol]66 U/L35 - 104 U/LMdiley ridge medical centerFreta.lá Work Phone: TLT [Catalytic activity/Vol]9 U/L5 - 33 U/LMHooftyMatch Work Phone: Ynion gap [Moles/Vol]14 mmol/L9 - 17 mmol/LMdiley ridge medical centery [employer] Work Phone: CST [Catalytic activity/Vol]17 U/L<[email or web address] Work Phone: bilirubin [Mass/Vol]0.32 mg/dL0.3 - 1.2 mg/dLMartin Memorial HospitalPertino Phone: bun/Cre Anpmv76EmjadPertino Phone: calcium [Mass/Vol]10.2 mg/dL8.6 - 10.4 mg/dLMartin Memorial HospitalPertino Phone: Bhloride [Moles/Vol]103 mmol/L98 - 107 mmol/LMdiley ridge medical centerFreta.lá Work Phone: cO2 [Moles/Vol]24 mmol/L20 - 31 mmol/LMdiley ridge medical centery [employer] Work Phone: creatinine [Mass/Vol]1.26 mg/dLHigh0.5 - 0.9 mg/dL [facility] [employer] Phone: GFR Jjxsdmrm55 mL/minLow>60[facility] [employer] Work Phone: GFR CommentOhiohealth [facility] [employer] Phone: comment on above:Average GFR for 70 or more years old: 75 mL/min/1.73sq m Chronic Kidney Disease: <60 mL/min/1.73sq m Kidney failure: <15 mL/min/1.73sq m eGFR calculated using average adult body mass. Additional eGFR calculator available at: http://www.[employer]/multiple_crcl_2012.htm GFR Non- Wthphabg13 mL/minLow>60[facility] [employer] Work Phone: GFR StagingNOT REPORTEDOhiohealth [facility] [employer] Work Phone: Glucose [Mass/Vol]106 mg/qRQrws15 - 99 mg/dLOhiohealth [facility] [employer] Phone: Interpretation and review of laboratory results AbnormalOhiohealth [facility] [employer] Phone: potassium [Moles/Vol]3.8 mmol/L3.7 - 5.3 mmol/LMdiley ridge medical centery [employer] Work Phone: protein [Mass/Vol]7.4 g/dL6.4 - 8.3 g/dLOhiohealth [facility] [employer] Phone: sodium [Moles/Vol]141 mmol/L135 - 144 mmol/LMdiley ridge medical centery [employer] Work Phone: Urea nitrogen [Mass/Vol]22 mg/dL8 - 23 mg/dLOhiohealth [facility] [employer] Phone: lipid PanelOrdered By: Reagan Pascal on 07-07-2019 Cholesterol [Mass/Vol]169 mg/dL<200MerPertino Phone: comment on above: Cholesterol Guidelines: <200 Desirable 200-240 Borderline >240 Undesirable Cholesterol in HDL [Mass/Vol]54 mg/dL>40Martin [facility] HospitalPertino Phone: compfep on above: HDL Guidelines: <40 Undesirable 40-59 Borderline >59 Desirable Cholesterol in LDL [Mass/Vol]91 mg/dL0 - 130 mg/dLMartin Memorial HospitalPertino Phone: comment on above: LDL Guidelines: <100 Desirable 100-129 Near to/above Desirable 130-159 Borderline >159 Undesirable Direct (measured) LDL and calculated LDL are not interchangeable tests. Cholesterol.total/Cholesterol in HDL [Mass ratio]3.1 {ratio}<5MerPertino Phone: Triglyceride [Mass/Vol]118 mg/dL<150[facility] [employer] Phone: comment on above: Triglyceride Guidelines: <150 Desirable 150-199 Borderline 200-499 High >499 Very high Based on AHA Guidelines for fasting triglyceride, March 2012. VLDLNOT REPORTED1 - 30 mg/dLMartin Memorial HospitalPertino Phone: MagnesiumOrdered By: Reagan Pascal on 07-07-2019 Magnesium [Mass/Vol]2.4 mg/dL1.6 - 2.6 mg/dLMartin Memorial HospitalPertino Phone: patient Fasting?Ordered By: Reagan Pascal on 07-07-2019 Patient Fasting?yesMartin Memorial HospitalPertino Phone: TSH with ReflexOrdered By: Reagan Pascal on 07-07-2019 TSH Qn2.66 m[IU]/LMercy [employer] Work Phone: Vitamin D 25 HydroxyOrdered By: Reagan Pascal on 23-56-5219Cpi D, 25-Hueaodd92.8 ng/mL30 - 100 ng/mLMartin Memorial HospitalPertino Phone: comment on above: Reference Range: Vitamin D status Range Deficiency <20 ng/mL Mild Deficiency 20-30 ng/mL Sufficiency 30-100 ng/mL Toxicity >100 ng/mL XR CHEST STANDARD (2 VW)Ordered By: Reagan Pascal on [id number] chest compared to 05/30/2019.[employer] Phone: eXAM: XR CHEST (2 VW) HISTORY: Reason for exam:->htn 73-year-old female. COMPARISON: Prior studies, most recent being a two-view chest 05/30/2019 TECHNIQUE: Two-view chest FINDINGS: Surgical clipsright upper quadrant abdomen. Heart size normal. Lungs clear. Minimal degenerative change thoracic spine.[employer] Phone: edi, [facility] Incoming Radiant Results From [employer] - 07/07/2019 10:15 AM EST EXAM: XR CHEST (2 VW) HISTORY: Reason for exam:->htn 73-year-old female. COMPARISON: Prior studies, most recent being a two-view chest 05/30/2019 TECHNIQUE: Two-view chest FINDINGS: Surgical clips right upper quadrant abdomen. Heart size normal. Lungs clear. Minimal degenerative change thoracic spine. IMPRESSION: Stable chest compared to 05/30/2019. [employer] Phone: clostridium Difficile Toxin/AntigenOrdered By: Roni Dahl on 04-23-2019C DIFF AG + TOXINNegativeNEGATIVEMartin Memorial Hospital[address] [place], [place] Comment on above:No C. difficile antigen and Toxin Detected.Specimen Description .[facility], DELONTECNOVon [id number] Visit (SPNSMN) --------MARY JANE RIOS ([id number]) 1945 [facility] Provider Department03/10/18 9:55 AM ANDREWS FISH NSMN During your visit today, we recorded the following information about you: Pulse Respiration Blood pressure Weight 69/minute 18/minute 130/77 102.1 kg Height 1.626 mJrachel Fish MD 03/10/2018 10:50 AM [facility] SURGERY OUTPATIENT CONSULTSERVICE DATE: 03/10/2018PCP: JOHANNA AnneEFERRING PROVIDER:Lanie Prince, [id number] [place] [address]Yatbaur requested for an opinion regarding the evaluation [...] She reports mildheaviness/weakness in her legs with standing/walking.PRECIPITATING EVENT: NoneDURATION OF SYMPTOMS: Greater Than 1 YearPAIN EVALUATION 03/10/2018 Pain Score: 2 Pain Location: Back-Lower Description: Stiffness;Tightness Duration Amount of Time: - Worse the past 2 months Duration Units: Years Frequency: Continuous Intervention: Medication;Exercise chiropractor, injections (2), pain management,Pain Radiation: down the right and left thighAggravating Factors: Standing, WalkingAlleviating Factors: NonePain Ratio: Pain inthe back is greater than in the legDERMATOMAL DISTRIBUTION:Not applicableAMBULATORY STATUS: Impaired Community DistancesPREVIOUS CONSERVATIVE TREATMENTS:NSAIDs, PT, InjectionsPREVIOUS SPINAL SURGERY:NoneThere is no problem list on file for [...] Alcohol use: No Drug use: Yes Types: Quita VargasERGIESAllergen Reactions- Gluten Flour GI Upset, Itching- Lexapro [Escitalopr* Itching- Morphine- Sulfa (Sulfonamide *MEDICATIONS:aspirin, enteric coated (ASPIRIN, ENTERIC COATED) 81 mg EC tabletTake 81 mg bymouth once daily.esomeprazole (NEXIUM) 40 mg capsule Take 40 mg by mouth twice daily.ci talopram (CELEXA) 20 mg tablet Take 20 mg by mouth once daily.ibuprofen (MOTRIN) 200 mg tablet [id number] mg by mouth every 6 hours as needed.loratadine (CLARITIN) 10 mg tablet Take 10 mg by mouth oncedaily.clarithromycin (BIAXIN) 500 mg tab Take by mouth every 12 hours.multivitamin with minerals (MULTIPLE VITAMIN- MINERALS) tablet Take 1 tablet bymouth once daily.Cholecalciferol, Vitamin D3, (VITAMIN D) 1,000 unit cap Take 1,000 Units bymouth once daily.triamterene- hydrochlorothiazide 37.5-25 mgper capsule Take 1 capsule by mouthonce daily.pilocarpine [...] dailyEZETIMIBE 10 MG TAB take one tablet dailylanso prazole(PREVACID 15 MG CAP) take one tablet dailysertraline hcl(ZOLOFT 50 MG TAB) take one and one half tablet HSrizatriptan benzoate(MAXALT 10 MG TAB) take with migrainescalcium/mag/vitamin d2/zn/min(ASHLY-MAG ZINC II ORAL SUSP) take one tablet dailyREVIEW OF SYSTEMS:Remaining ROS reviewed and were n egative.OBJECTIVE:PHYSICAL EXAMBP 130/77 Pulse 69 Resp 18 Ht 162.6 cm (5' 4 ) Wt 102.1 kg (225 lb) BMI 38.62 kg/m?GENERAL APPEARANCE: Well nourished, well developed, and no apparent distress.NEURO PSYCH: Patient oriented to person, place, and time. Mood pleasant. Benignaffect.MUSCULOSKELETAL VISUAL INSPECTION CERVICAL: WNL THORACIC: WNL LUMBAR: WNLMOTOR: 5/5 in all muscle groups.SENSORY: Normal sensory examGAIT: Antalgic. Trendelenburg gait compensated.NEURO TESTS:NoneDATA REVIEWOutside records reviewed. MRI report states mild degenerative scoliosis withlumbar spondylosis, mild to moderate stenosisASSESSMENT/PLANIMPRESSION:(M41.9) Degenerative scoliosis (primary encounter diagnosis)Mary Jane Rios [...] counseled regarding back pain. Total face to f acetime was 30 minutes.SIGNATURE: Andrews Fish MD PATIENT NAME: Mary Jane WallaceATE: March 10, 2018 : 10:44 AM PAGER:Referring Provider: LANIE PRINCE [[id number]]Allergies As of Date: 03/10/2018 Noted Allergy ReactionGLUTEN FLOUR 03/10/2018 8 - GI Upset 9 - ItchingLEXAPRO (ES CITALOPRAM OXALATE) 08/19/2007 9 - ItchingMORPHINE 07/04/2007SULFA (SULFONAMIDE ANTIBIOTICS) 07/04/2007Date Reviewed: 03/10/2018Reviewed by: Alanna Chang Ma - Fully AssessedReason for Visit: New Patient [172]Primary Visit Diagnosis:Degenerative scoliosis [M41.9]Order(s):XR LUMBAR LIMITED 2V AP/LAT [[id number]] Order #: [id number] FUTUREPrescriptions as of 03/10/2018 Sig: ASPIRIN 81 [...] three time* LEVOTHYROXINE 50 MCG TABLET Take 50mcg by mouth daily be* DOCUSATE SODIUM 100 [...] * MAXALT 10 MG TABLET take with migraines* ASHLY-MAG ZINC II ORAL SUSPENSI* take one tablet dailyProblem List As Of Date: 03/10/2018(None)Encou nter Number: [id number] Status:Closed by ANDREWS FISH MD on 03/10/18 NormalSelect Medical Specialty Hospital - YoungstownPROGRESSon [id number] mass concHNO ID: [id number]: Katelin Hollingsworth RtService: (none)Author Type: (none)Type: Progress NotesFiled: 03/10/2018 11:05 AMNote Text: Radiology Service Progress NotePATIENT NAME: Mary Jane SinghRN: [id number] OF SERVICE: March 10, 2018TIME: 11:04 AMPATIENT IDENTITY VERIFICATION COMPLETED USING TWO (2) METHODS: Patientconfirmed name verbally and Date of .PATIENT GENDER DATA: Female. status: : NoBreastfeeding status: NO.PATIENT RELEVANT IMPLANT DATA REVIEWED: Not ApplicableRADIOLOGY DEPARTMENT: General X-ray: Exam(s) Completed: Spine X-Ray(s):Lumbar AP / LAT / [id number] IV DATA: Not applicableSIGNED BY: Katelin Hollingsworth RtSeptember 2017 11:04 AMNormal [facility] - YoungstownProtein mass concHNO ID: [id number]: Andrews Reaganervice: (none)Author Type: PhysicianType: Progress NotesFiled: 03/10/2018 10:50 AMNote Text:SPINE SURGERY OUTPATIENT CONSULTSERVICE DATE: 03/10/2018PCP: Roni Motta, [facility] WESTEFERRING PROVIDER:Lanie Prince, [id number] [place] [address]Ryxbtto requested for an opinion regarding the evaluation and treatmentof back and leg pain. My final impression and recommendations will becommunicated back to the requesting physician by way of the shared medicalr ecord or letter via US mail.Siddhartha Rios is a 72 year old female presenting with spouse and with son.CHIEF COMPLAINT: Back pain, difficulty with walkingHISTORY OF PRESENT ILLNESS: Mary Jane is a very pleasant 72 y/o F whopresents to clinic today c/o intermittent low back pain and difficultywith standing/walking for prolonged periods. 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 She walks with a limp. She reports numbness/tingling in her feet.She reports b/l buttock pain (L>R). No radiating pain past the knee. Shereports mild heaviness/weakness in her legs with standing/walking.PRECIPITATING EVENT: NoneDURATION OF SYMPTOMS: Gr eater Than 1 YearPAIN EVALUATION 03/10/2018 Pain Score: 2 Pain Location: Back- Lower Description: Stiffness;Tightness Duration Amount of Time: - Worse the past 2 months Duration Units: Years Frequency:Continuous Intervention: Medication;Exercise chiropractor, injections (2), pain management,Pain Radi ation: down the right and left thighAggravating Factors: Standing, WalkingAlleviating Factors: NonePain Ratio: Pain in the back is greater than in the legDERMATOMAL DISTRIBUTION:Not applicableAMBULATORY STATUS: Impaired Community DistancesPREVIOUS CONSERVATIVE TREATMENTS:NSAIDs, PT, InjectionsPREVIO US SPINAL SURGERY: NoneThere is no problem list [...] tobacco: Never Used Alcohol use: No Drug use:Yes Types: MarijuanaALLERGIESAllergen Reactions- Gluten Flour GI Upset, Itching- Lexapro [Escitalopr* Itching- Morphine- Sulfa (Sulfonamide *MEDICATIONS:aspirin, enteric coated (ASPIRIN, ENTERIC COATED) 81 mg EC tablet Take 81mg by mouth once daily.esomeprazole (NEXIUM) 40 mg capsule Take 40 mg by mouth twice daily.citalopram (CELEXA) 20 mg tablet Take 20 mg by mouth once daily.ibuprofen (MOTRIN)200 mg tablet Take 200 mg by mouth every 6 hours asneeded.loratadine (CLARITIN) 10 mg tablet Take 10 mg by mouth once daily.clarithromycin (BIAXIN) 500 mg tab Take by mouth every 12 hours.multivitamin with minerals (MULTIPLE VITAMIN-MINERALS) tablet Take 1tablet by mouth once daily.Cholecalciferol, Vitamin D3, (VITAMIN D) 1,000 unit cap Take 1,000 Unitsby mouth once daily.triamterene-hydrochlorothiazide 37.5-25 mg per capsule Take 1 capsule bymouth once daily.pilocarpine (SALAGEN) 5 mg tablet Take 5 mg by mouth three times daily.levothyroxine (SYNTHROID) 50 mcg tablet Take 50 mcg by mouth daily beforebreakfast.docusate sodium (STOOL SOFTENER) 100 mg capsule Take 100 mg by mouth twicedaily.pravastatin (PRAVACHOL) 40 mg tablet Take 40 mg by mouth once daily.diltiazem (CARDIZEM) 30 mg tabletTake 30 mg by mouth as needed.raloxifene (EVISTA) [...] take one tablet dailysertraline hcl(ZOLOFT 50 MG TAB)take one and one half tablet HSrizatriptan benzoate(MAXALT 10 MG TAB) take with migrainescalcium/mag/vitamin d2/zn/min(ASHLY-MAG ZINC II ORAL SUSP) take one tabletdailyREVIEW OF SYSTEMS:Remaining ROS reviewed and were negative.OBJECTIVE:PHYSICAL EXAMBP 130/77 Pulse 69 Resp 18 Ht 162.6 cm (5' 4 ) Wt 102.1 kg(225 lb) BMI 38.62 kg/m?GENERAL APPEARANCE: Well nourished, well developed, and no apparentdistress.NEURO PSYCH: Patient oriented to person, place, and time. Mood pleasant.Benign affect.MUSCULOSKELETAL VISUAL INSPECTION CERVICAL: WNL THORACIC: WNL LUMBAR: WNLMOTOR: 5/5 in all musclegroups.SENSORY: Normal sensory examGAIT: Antalgic. Trendelenburg gait compensated.NEURO TESTS:NoneDATA REVIEWOutside records reviewed. MRI report states mild degenerative scoliosiswith lumbar spondylosis, mild to moderate stenosisASSESSMENT/PLANIMPRESSION:(M41.9) Degenerative scoliosis (primary enco unter diagnosis)Mary Jane Rios will continue with medical management of his/her conditionand has a condition that requires further workup. I explained that hergait pattern (trendelenberg) is more consistent with underlying hippathology. She does have symptoms consistent with lumbarstenosis/neurogenicclaudication.1. Imaging: Lumbar X-Ray2. Follow up: Will try to locate CD with MRI lumbar spine, if not at [facility],patient will need to obtain a copy and mail for reviewThe majority of the visit was spentcounseling and/or coordinating carefor the patient. The patient was counseled regarding back pain. Totalface to face time was 30 minutes.SIGNATURE: Andrews Fish MD PATIENT NAME: Mary Jane Hidalgo: Dejan parks 2018 : 10:44 AM PAGER:NormalSelect [facility] - YoungstownXR LUMBAR 2V AP/LATon [id number] LUMBAR 2V AP/LAT* * *Final Report* * *DATE OF EXAM: Mar 10 2018 11:03AM JIX [id number] - XR LUMBAR 2V AP/LAT / REASON: Scoliosis, unspecified * * * * Physician Interpretation * * * * EXAMINATION: XR LUMBAR 2V AP/LATCLINICAL HISTORY: ScoliosisTECHNIQUE: XR LUMBAR 2V AP/LAT with 2 views on 2imagesMQ: XLS_1COMPARISON: None.RESULT:Post-op assessment: N/ACounting Reference: Lumbosacral junction on lateral view. For the purposes of this report, L5S1 is considered the last lumbar type disc space and L4-5 is considered the level of the iliac crest. Normal.Alignment: Mild curve convex right.Straightening of the normal lordosis, grade 1 spondylolisthesis of L4 upon B2Plyqwnuzv bodies: Normal in height. No vertebral fracture.Spine articulations: Severe multilevel disc space narrowing throughout the spine with osteophyte formation of the endplates. Multilevel degenerative changes in the facet joints.Soft tissues: Normal.Other: Right hip is maintained. Total hip arthroplasty on the leftside.IMPRESSION: Severe multilevel degenerative changes in the lumbar spineTranscriptionist: NANCI Transcribe Date/Time: Mar 10 2018 11:21ADictated by : ANAHI STEIN MDThis examination was interpretedand the report reviewed and electronically signed by: ANAHI STEIN MD on Mar 10 2018 11:23AM [id number] [facility] [place] Vital Signs Date TimeVital SignValuePerforming SusjhdsszDzqmxlfh22-55-2109 09:34-0400Body mass index (BMI) [Ratio]36.73 kg/r6Zhkep Barger PA-C Work Phone: 1(952) [phone]mpecn22-07-9754 09:34-0400Body blmehboxwps66.49 [degF]Cinthya Barger PA-C Work Phone: 1(405) [phone]qtzhl45-58-6097 09:34-0400Body fiexgh35.07 kg Cinthya Barger PA-C Work Phone: 1(449) [phone]fnzep68-29-7351 09:34-0400Diastolic blood ylbsomwp58 mm[Hg]Cinthya Barger PA-C Work Phone: 1(112) [phone]tjlvq66-55-1051 09:34-0400Heart rate76 /minNimartamary alice Barger PA-C Work Phone: 1(469) [phone]uhhsr69-56-1638 09:34-0400Respiratory rate16 /min Cinthya Barger PA-C Work Phone: 1(360) [phone]urvck14-41-1622 09:34-4033GmD2% (BldA) [Mass fraction]97 %Cinthya Barger PA-C Work Phone: 1(725) [phone]wxesx10-72-5668 09:34-0400Systolic blood pressure 136 mm[Hg]Cinthya Barger PA-C Work Phone: 1(406) [phone]aghtt26-04-8957 09:17-0400Body mass index (BMI) [Ratio]36.39 kg/i3Bfops Lamport PA-C Work Phone: 1(237) [phone]xfyhb90-56-5696 09:17-0400Body wnkayyzguxe33.3 [degF]Christian Lamport PA-C Work Phone: 1(273) [phone]jbuqh37-99-5987 09:17-0400Body pptmiz77.16 kg Christian Lamport PA-C Work Phone: 1(965) [phone]dykyg62-03-2977 09:17-0400Diastolic blood smgctmxa58 mm[Hg]Christian Lamport PA-C Work Phone: 1(416) [phone]pmtnx66-59-4239 09:17-0400Heart rate72 /minDavid Lamport PA-C Work Phone: 1(752) [phone]QkoaOaeuqw01-31-5387 09:17-0400Respiratory rate16 /min Christian Lamport PA-C Work Phone: 1(111) [phone]jkmey75-76-6714 09:17-9247UqA0% (BldA) [Mass fraction]98 %Christian Lamport PA-C Work Phone: 1(966) [phone]ivpax46-68-5286 09:17-0400Systolic blood pressure 133 mm[Hg]Christian Lamport PA-C Work Phone: 1(840) [phone]xuscz66-84-1743 09:21-0400Body nosuul727.8 cm Lexy Canales DPM Work Phone: [facility] CenterLbsjwhcmcb94-29-0325 09:21-0400Body mass index (BMI) [Ratio]35.83 kg/d9Mhmztroeczrangela Canales DPM Work Phone: noLee[facility] Summit HospitalCuesxethbf43-92-7936 09:21-0400Body yvwdde40.16 kgChangela Canales DPM Work Phone: noLee[facility] HospitalOuioclnvgy49-23-3884 09:21-0400Diastolic blood hoqldtbm72 mm[Hg]Lexy Canales DPM Work Phone: [facility] CenterRsqaokqwyb73-06-0451 09:21-0400Heart rate75 /min Christopher Bohach DPM Work Phone: [facility] CenterBdtzymimyv41-61-5692 09:21-0400Systolic blood kmhgewqk572 mm[Hg]Christopher Bohach DPM Work Phone: [facility] CenterXwwqzcmtrj24-13-0128 13:49-0500Body dajzua129.8 Julisa Canales DPM Work Phone: [facility] CenterAaujxxrgug29-60-0298 13:49-0500Body mass index (BMI) [Ratio]35.83 kg/i8Fcasfyaevsg Bohach DPM Work Phone: [facility] CenterBtgduqpmjj29-06-0575 13:49-0500Body vcsofs66.16 kgChristop Bohach DPM Work Phone: [facility] CenterNzvorezyjc32-37-8132 13:49-0500Diastolic blood dtjixgim09 mm[Hg]Christopher Bohach DPM Work Phone: [facility] CenterZtbpzecdit04-22-3331 13:49-0500Heart rate70 /min Christopher Bohach DPM Work Phone: [facility] CenterEollhiptbj28-45-9030 13:49-0500Respiratory rate18 /minChristop Bohach DPM Work Phone: [facility] CenterXponshnzos15-97-9359 13:49-0500Systolic blood mltuvwfg065 mm[Hg]Francescoer Debbieach DPM Work Phone: [facility] CenterAukvkwajmu32-59-8952 06:34-0500Body .6 Julisa Tapia MD Work Phone: bon [facility]01-10-2025 06:34-0500Body mass index (BMI) [Ratio]36.39 kg/i3QjppcobgofxLexy Tapia MD Work Phone: bon [facility]01-10-2025 06:34-0500Body cjqiyy43.16 kgChangela Tapia MD Work Phone: Bon [employer]01-10-2025 06:30-0500Body jbiijcyyjtw03.29 [degF]Lexy Tapia MD Work Phone: Bon [facility] CenterJungleCents [facility] CenterFreta.láZafwaw39-29-0779 06:30-0500Diastolic blood mm[Hg]Lexy Tapia MD Work Phone: Bon [facility] CenterOl[facility]01-10-2025 06:30-0500Heart rate74 /Glenis Tapia MD Work Phone: Bon [facility] CenterOl[facility]01-10-2025 06:30-0500 Respiratory rate17 /Glenis Tapia MD Work Phone: Bon [facility] CenterJungleCents [facility] CenterFreta.láKoiknw93-75-2360 06:30-4662KeY4% (BldA) [Mass fraction]98 %Lexy Tapia MD Work Phone: Bon [facility] CenterJungleCents [facility] CenterFreta.láOlweds69-06-0884 06:30-0500Systolic blood ffeoubez563 mm[Hg]Lexy Tapia MD Work Phone: Bon [facility] CenterJungleCents [facility] CenterFreta.láBjmosn62-95-6604 18:05-5361CqN3% (BldA) [Mass fraction]96 %Monster Mei MD Work Phone: bon [employer]12-25-2024 18:00-0500Diastolic blood smofxifw91 mm[Hg]Monster Mei MD Work Phone: bon [employer]12-25-2024 18:00-0500Systolic blood ogqnolii181 mm[Hg]Monster Mei MD Work Phone: bon [employer]12-25-2024 17:25-0500Body ckudwl932.6 Derek Mei MD Work Phone: bon [employer]12-25-2024 17:25-0500Body mass index (BMI) [Ratio]36.39 kg/w8WplxiqfMonster Mei MD Work Phone: bbrianna [facility] CenterFreta.láAsxahl72-95-6970 17:25-0500Body uezxfilflaz24.7 [degF]Monster Mei MD Work Phone: [facility]12-25-2024 17:25-0500Body jvzpyo84.16 kgMonster Mei MD Work Phone: b[facility]12-25-2024 17:25-0500Heart rate75 /minMonster Mei MD Work Phone: b[facility] HospitalFreta.láXmofnr49-84-8187 17:25-0500 Respiratory rate19 /minMonster Mei MD Work Phone: b[facility]05-16-2024 22:17-0400Diastolic blood rexgqwzx59 mm[Hg]Jessica Farrar MD Work Phone: [facility]05-16-2024 22:17-0400Heart rate60 /Myron Farrar MD Work Phone: [facility]05-16-2024 22:17-0400 Respiratory rate17 /minJessica Farrar MD Work Phone: [facility]05-16-2024 22:17-9917GtM3% (BldA) [Mass fraction]96 %Jessica Farrar MD Work Phone: [facility]05-16-2024 22:17-0400Systolic blood mm[Hg]Jessica Farrar MD Work Phone: [facility] CDXLDY57-72-5704 18:48-0400Body .01 [degF]Jessica Farrar MD Work Phone: [facility] [facility]PITALHVAKYX91-23-6050 18:42-0400Body xwbiri489.6 cmJessica Farrar MD Work Phone: [facility]05-16-2024 18:42-0400Body mass index (BMI) [Ratio]37.08 kg/m2Jessica Farrar MD Work Phone: [facility]05-16-2024 18:42-0400Body hsaehn39.98 kgJessica Farrar MD Work Phone: [facility]04-24-2024 12:23-0400Heart rate79 /Glenis Tapia MD Work Phone: [facility]04-24-2024 12:23-0400 Respiratory rate16 /Glenis Tapia MD Work Phone: [facility]04-24-2024 12:23-5908GzW4% (BldA) [Mass fraction]97 %Lexy Tapia MD Work Phone: [facility]04-24-2024 12:13-0400Diastolic blood shpdowrx88 mm[Hg]Lexy Tapia MD Work Phone: [facility]04-24-2024 12:13-0400Systolic blood yfrbyqvd573 mm[Hg]Lexy Tapia MD Work Phone: [facility]04-24-2024 09:46-0400Body cmCdenae Tapia MD Work Phone: [facility]04-24-2024 09:46-0400Body mass index (BMI) [Ratio]38.09 kg/t7MrddoytlxxuLexy Tapia MD Work Phone: [facility]04-24-2024 09:46-0400Body nmufnjywybj58.1 [degF]Lexy Tapia MD Work Phone: [facility]04-24-2024 09:46-0400Body hdjhsy48.52 Bassam Tapia MD Work Phone: [facility]03-18-2024 15:15-0400Diastolic blood kaudzpiw09 mm[Hg]Ricardo Sarmini [facility]03-18-2024 15:15-0400Heart rate53 /minMuhammad Sarmini [facility]03-18-2024 15:15-0400 Respiratory rate14 /minMuhammad Sarmini [address] [place], [place] 7783603-18-2024 15:15-0400 Systolic blood mkkoveii802 mm[Hg]Ricardo Sarmini [address] [place], [place] 7783603-18-2024 15:00-0400 Diastolic blood mm[Hg]Ricardo Sarmini [address] [place], [place] 7783603-18-2024 15:00-0400Heart rate54 /minMuhammad Sarmini [address] [place], [place] 7783603-18-2024 15:00-0400 Systolic blood swyaypgl552 mm[Hg]Ricardo Sarmini [address] [place], [place] 7783603-18-2024 14:55-0400 Diastolic blood mdsqxtzu15 mm[Hg]Ricardo Sarmini [address] [place], [place] 7783603-18-2024 14:55-0400Heart rate60 /minMuhammad Sarmini [address] [place], [place] 7783603-18-2024 14:55-0400 Respiratory rate20 /minMuhammad Sarmini [address] [place], [place] 7783603-18-2024 14:55-7031GsE2% (BldA) [Mass fraction]100 %Ricardo Sarmini [address] [place], [place] 7783603-18-2024 14:55-0400 Systolic blood wxyqktpi777 mm[Hg]Ricardo Sarmini [facility]03-18-2024 14:44-0400Body trwretnqymh42.8 [degF]Ricardo Sarmini [facility]03-18-2024 14:35-0400 Respiratory rate12 /minMuhammad Sarmini [facility]03-18-2024 14:25-0400 Respiratory rate12 /minMuhammad Sarmini [facility]03-18-2024 14:15-0400 Respiratory rate12 /minMuhammad Sarmini [facility]03-18-2024 13:14-0400Blood Pressure LocationMuhammad Sarmini [facility]03-18-2024 13:14-0400Body zvmhdzloalx39.8 [degF]Ricardo Sarmini [facility]01-01-2024 15:32-0500Body elrlbp963 cmVdm Mei MD Work Phone: bon [facility]01-01-2024 15:32-0500Body mass index (BMI) [Ratio]36.49 kg/k9MvyrqsiMonster Mei MD Work Phone: bon [facility]01-01-2024 15:32-0500Body yetixstfyzc80.91 [degF]Monster Mei MD Work Phone: bon [facility]01-01-2024 15:32-0500Body zracya84.44 kgMonster Mei MD Work Phone: bon [facility]01-01-2024 15:32-0500Diastolic blood qwpakreq13 mm[Hg]Monster Mei MD Work Phone: bon [facility]01-01-2024 15:32-0500Heart rate80 /minMonster Mei MD Work Phone: bon [facility] LFAGJI53-63-2576 15:32-0500 Respiratory rate20 /minMonster Mei MD Work Phone: bon [facility] AFKFCU53-39-2778 15:32-4405DwO9% (BldA) [Mass fraction]97 %Monster Mei MD Work Phone: bon [facility] CMUKQN84-70-9545 15:32-0500Systolic blood jojqznvx199 mm[Hg]Monster Mei MD Work Phone: [facility] MXGYCG42-59-7777 08:55-0400Body dgpomk889.6 cmDarich Hutchinson Jr., DO Work Phone: ZdtcFmsxdq61-563796BklxSudwnl24-14-4650 08:55-0400Body mass index (BMI) [Ratio]36.46 kg/c3UgfvwpSj Hutchinson Jr., DO Work Phone: VietTohvna75-797665KxonPgzdyt29-34-9676 08:55-0400Body ojyfxxcmzlt09.7 [degF]Sj Hutchinson Jr., DO Work Phone: MezdCnmzzx37-136188DrqcXluuga37-89-4804 08:55-0400Body ravtrz43.34 kg Sj Hutchinson Jr., DO Work Phone: XjjgNoqbti89-038831XqdrFjdyfe76-41-5276 08:55-0400Diastolic blood nhywrixh82 mm[Hg]Sj Hutchinson Jr., DO Work Phone: CimpCdhwtp78-233798HvqgNobgcz79-83-1912 08:55-0400Heart rate72 /minDaj Hutchinson Jr., DO Work Phone: YgenEcwhct13-338046QkuyXewbak08-06-8310 08:55-0400Systolic blood pressure 150 mm[Hg]Sj Hutchinson Jr., DO Work Phone: HxgyLvpuiw16-322369CgtkStnrht16-73-6518 08:55-0400Diastolic blood fxjauyus89 mm[Hg]MD Roni Dahl Work Phone: 1(143)[address]09-19-2023 08:55-0400 Heart rate63 /min Roni Donjayde Work Phone: 1(873)[address]09-19-2023 08:55-0400 Respiratory rate16 /minMD Colungacy Shreyauvaldo Work Phone: 1(543)[address] [place], [place] 9978009-19-2023 08:55-0400 SaO2% (BldA) [Mass fraction]95 %MD Roni Dahl Work Phone: 1(249)[address] [place], [place] 9978009-19-2023 08:55-0400 Systolic blood tshkiuae842 mm[Hg]MD Roni Dahl Work Phone: 1(125)[address] [place], [place] 9978009-19-2023 08:15-0400 Inhaled oxygen flow rate3 L/min Roni Shreyauvaldo Work Phone: 1(951)[address] [place], [place] 9978009-19-2023 07:19-0400 Body .02 cmOH Roni Dahl Work Phone: 1(838)[address] [place], [place] 9978009-19-2023 07:19-0400 Body .61 kgMD Colungacy Nakia Work Phone: 1(108)[address] [place], [place] 9978009-07-2023 09:20-0400 Body heightMukul Wislon Other [employer] Other 09-07-2023 09:20-0400Body mass index (BMI) [Ratio] 35.99 kg/m2Dadixon Wilson Other [employer] Other 09-07-2023 09:20-0400Body ovmlag09.62 kgMukul Wilson Other [employer] Other 09-07-2023 09:20-0400Diastolic blood otivhrum96 mm[Hg] Mukul Wilson Other [employer] Other 09-07-2023 09:20-0400Systolic blood tgtklbyw699 mm[Hg] Mukul Wilson Other [employer] Other 09-01-2023 12:05-0400Body hypeaf893.56 cmMD Roni Dahl Work Phone: 1(912)108-[address] [place], [place] 1673809-01-2023 12:05-0400 Body twjamobfqgd70.6 [degF]MD Roni Dahl Work Phone: 1(441)[address]09-01-2023 12:05-0400 Body uouihv57.61 kgMD Roni Donjayde Work Phone: 1(184)[address]09-01-2023 12:05-0400 Diastolic blood hektfxbv29 mm[Hg]MD Roni Dahl Work Phone: 1(433)[address]09-01-2023 12:05-0400 Heart rate59 /minMD Roni Ochoajayde Work Phone: 1(808)[address]09-01-2023 12:05-0400 Respiratory rate20 /minMD Roni Shreyauvaldo Work Phone: 1(768)[address]09-01-2023 12:05-0400 SaO2% (BldA) [Mass fraction]96 %MD Roni Dahl Work Phone: 1(891)[address] [place], [place] 1673809-01-2023 12:05-0400 Systolic blood ukhhdvsr287 mm[Hg]MD Roni Dahl Work Phone: 1(646)[address]08-31-2023 12:51-0400 Blood Pressure LocationMugeraldine Kellymini 473-7306Mcqdll-PnhsoPaulding County Hospital08-31-2023 12:51-0400Diastolic blood omnslkfz29 mm[Hg]Davion Sarmini 617-7148Agjhqx-PvsoiPaulding County Hospital08-31-2023 12:51-0400Heart rate64 /minAmarilysd Kellymini 563-4132Ktevdu-RpkvaPaulding County Hospital08-31-2023 12:51-0400Respiratory rate16 /minMuhammad Sarmini 177-1828Euuqep-KjbibPaulding County Hospital08-31-2023 12:51-3169YvU4% (BldA) [Mass fraction]98 %Ricardo Kellymini 338-2562Iffcuf-GfgqyPaulding County Hospital08-31-2023 12:51-0400Systolic blood fquobbzp046 mm[Hg]Ricardo Kellymini 613-0936Gqkhra-QuuwoPaulding County Hospital08-11-2023 14:05-0400Body bwxzewrkmdt67.1 [degF]Roni Dahl MD Work Phone: bon [facility]08-11-2023 14:05-0400Diastolic blood akgajtvg92 mm[Hg]Roni Dahl MD Work Phone: bon [facility]08-11-2023 14:05-0400Heart rate59 /Tico Dahl MD Work Phone: bon [facility]08-11-2023 14:05-0400 Respiratory rate13 /Tico Dahl MD Work Phone: bon [facility]08-11-2023 14:05-3744PdM3% (BldA) [Mass fraction]97 %Roni Dahl MD Work Phone: bon [facility]08-11-2023 14:05-0400Systolic blood hfezxxbp687 mm[Hg]Roni Dahl MD Work Phone: bon [facility]08-02-2023 15:30-0400Body jdqyxjeaxyb57.7 [degF]Tara Patel Other [employer] Other 08-02-2023 15:30-0400Body lkhgmy37.79 kgTara Patel Other [employer] Other 08-02-2023 15:30-0400Diastolic blood opbavpwc44 mm[Hg] Tara Patel Other [employer] Other 08-02-2023 15:30-0400Respiratory rate20 /minTara Patel Other [employer] Other 08-02-2023 15:30-5560QrJ1% (BldA) [Mass fraction]98 % Tara Patel Other [facility] [employer] Other 08-02-2023 15:30-0400Systolic blood etlgiqvo435 mm[Hg] Tara Patel Other [employer] Other 05-28-2023 12:00-0400Diastolic blood unecthvw47 mm[Hg] Salomon Juares MD Work Phone: bon [employer]05-28-2023 12:00-3139CgQ8% (BldA) [Mass fraction]99 %Salomon Juares MD Work Phone: bon [employer]05-28-2023 12:00-0400Systolic blood mm[Hg]Salomon Juares MD Work Phone: bon [employer]05-28-2023 10:30-0400Heart rate59 /Kevin Juares MD Work Phone: bon [employer]05-28-2023 10:30-0400 Respiratory rate18 /minSalomon Juares MD Work Phone: [facility]05-28-2023 10:05-0400Body vbltihbldin12.9 [degF]Salomon Juares MD Work Phone: [facility]05-28-2023 10:04-0400Body dpmuiu104.6 cmJonancy Juares MD Work Phone: [facility]05-28-2023 10:04-0400Body mass index (BMI) [Ratio]38.16 kg/y2CccfdhSalomon Juares MD Work Phone: [facility]05-28-2023 10:04-0400Body hmlcde204.83 kgJonancy Juares MD Work Phone: [facility]02-28-2023 12:58-0500Blood Pressure LocationBeth Johanna [phone]-EebykPaulding County Hospital02-28-2023 12:58-0500Body daheklvuwor12.34 [degF]Donna Spencer [phone]-DozjvPaulding County Hospital02-28-2023 12:58-0500Diastolic blood pzpqakrs23 mm[Hg]Donna Spencer [phone]-TazpoPaulding County Hospital02-28-2023 12:58-0500Heart rate69 /minDonna Spencer [phone]-CixvyPaulding County Hospital02-28-2023 12:58-0500Systolic blood mm[Hg]Donna Spencer [phone]-EywufPaulding County Hospital01-26-2023 08:55-0500Diastolic blood ucnsoavu62 mm[Hg]Vonda HERNANDEZ [facility]01-26-2023 08:55-0500Heart rate54 /minVonda PUGHAM [facility]01-26-2023 08:55-0500Mean blood gumasklf04 mm[Hg]Ferrari SALAM [facility]01-26-2023 08:55-0500 Respiratory rate13 /minMaher SALAM [facility]01-26-2023 08:55-6074TsL8% (BldA) [Mass fraction]97 %Ferrari SALAM [address] [place], [place] 1158101-26-2023 08:55-0500 Systolic blood ojmidpms151 mm[Hg]Ferrari SALAM [facility]01-26-2023 08:35-0500 Diastolic blood pezliags82 mm[Hg]Ferrari SALAM [facility]01-26-2023 08:35-0500Heart rate55 /minMaher SALAM [facility]01-26-2023 08:35-0500Mean blood cejyzowo19 mm[Hg]Ferrari SALAM [facility]01-26-2023 08:35-0500 Respiratory rate17 /minMaher SALAM [facility]01-26-2023 08:35-0297VfJ8% (BldA) [Mass fraction]100 %Ferrari SALAM [facility]01-26-2023 08:35-0500 Systolic blood wcjmlxih366 mm[Hg]Ferrari SALAM [facility]01-26-2023 08:30-0500 Diastolic blood mm[Hg]Ferrari SALAM [facility]01-26-2023 08:30-0500Heart rate71 /minMaher SALAM [facility]01-26-2023 08:30-0500Mean blood nccpdnit93 mm[Hg]Vonda PUGHAM [facility]01-26-2023 08:30-0500 Respiratory rate21 /minMa SALAM [facility]01-26-2023 08:30-6374XfC2% (BldA) [Mass fraction]99 %Ferrarijuli HERNANDEZ [facility]01-26-2023 08:30-0500 Systolic blood uyypqdkj943 mm[Hg]Vonda PUGHAM [facility]01-26-2023 08:20-0500Body wfogxpoednk38.7 [degF]Ferrarijuli HERNANDEZ [facility]01-26-2023 07:14-0500Blood Pressure LocationMaher KHADAR [facility]01-26-2023 07:14-0500Body uvqrldqgkub10.16 [degF]Ferrarijuli HERNANDEZ [facility]01-17-2023 09:53-0500 Diastolic blood atuulcsc99 mm[Hg]MD Roni Dahl Work Phone: [facility]01-17-2023 09:53-0500 Heart rate60 /minMD Roni Dahl Work Phone: [facility]01-17-2023 09:53-0500 Respiratory rate16 /minMD Roni Dahl Work Phone: [facility]01-17-2023 09:53-0500 SaO2% (BldA) [Mass fraction]97 %MD Roni Dahl Work Phone: [facility]01-17-2023 09:53-0500 Systolic blood pubumaov755 mm[Hg]MD Roni Dahl Work Phone: [facility]01-17-2023 09:06-0500 Inhaled oxygen flow rate3 L/min Roni Dahl Work Phone: [facility]01-17-2023 08:22-0500 Body hjvlej961.56 cmMD Roni Dahl Work Phone: [facility]01-17-2023 08:22-0500 Body .79 kgMD Roni Dahl Work Phone: [facility]01-12-2023 09:28-0500 Body .7 [degF]Alma Mao DO Work Phone: [facility]01-12-2023 09:21-0500Body .6 Martin Mao DO Work Phone: [facility]01-12-2023 09:21-0500Body mass index (BMI) [Ratio]37.93 kg/l1Xgpbhbdza Daylin DO Work Phone: [facility]01-12-2023 09:21-0500Body .25 kgAlma Whiteier DO Work Phone: [facility]01-12-2023 09:21-0500Diastolic blood lqytvzmb51 mm[Hg]Alma Mao DO Work Phone: [facility]01-12-2023 09:21-0500Heart rate72 /minAlma Whiteier DO Work Phone: [facility]01-12-2023 09:21-0500 Respiratory rate18 /minAlma Mao DO Work Phone: [facility]01-12-2023 09:21-7982VrS7% (BldA) [Mass fraction]98 %Alma Mao DO Work Phone: [facility]01-12-2023 09:21-0500Systolic blood jtlsnxuw337 mm[Hg]Alma Mao DO Work Phone: [facility]01-10-2023 14:16-0500Blood Pressure LocationDonna Spencer [phone]-[facility]tdkhPaulding [facility]01-10-2023 14:16-0500Body jsehunhhdym50.8 [degF]Donna Spencer [phone]-DaljwPaulding [facility]01-10-2023 14:16-0500Diastolic blood mm[Hg]Donna Spencer [phone]-LhyabPaulding [facility] Hospital01-10-2023 14:16-0500Heart rate64 /minBeshannon Spencer [phone]-UzkncPaulding [facility] Hospital01-10-2023 14:16-0500Systolic blood tmvvtipb945 mm[Hg]Donna Spencer [phone]-VgvjfPaulding [facility] Hospital01-03-2023 11:10-0500Diastolic blood rjnyortq96 mm[Hg]MD Roni Dahl Work Phone: [facility]01-03-2023 11:10-0500 Heart rate56 /minMD Roni Dahl Work Phone: [facility]01-03-2023 11:10-0500 Respiratory rate20 /minMD Roni Dahl Work Phone: [facility]01-03-2023 11:10-0500 SaO2% (BldA) [Mass fraction]97 %MD Roni Dahl Work Phone: [facility]01-03-2023 11:10-0500 Systolic blood hpcytbth129 mm[Hg]MD Roni Dahl Work Phone: [facility]01-03-2023 10:28-0500 Inhaled oxygen flow rate3 L/minMD Roni Verhoff Work Phone: 1(167)[address]01-03-2023 09:32-0500 Body ewxpgo256.56 cmMD Roni Verhoff Work Phone: 1(275)[address]01-03-2023 09:32-0500 Body .79 kgMD Roni Verhoff Work Phone: 1(672)[address] [place], [place] 9978011-29-2022 10:13-0500 Diastolic blood avxtmrpm22 mm[Hg]MD Roni Dahl Work Phone: 1(255)[address]11-29-2022 10:13-0500 Heart rate62 /minMD Roni Verhoff Work Phone: 1(376)[address] [place], [place] 9978011-29-2022 10:13-0500 Respiratory rate20 /minMD Roni Verhoff Work Phone: 1(432)[address] [place], [place] 9978011-29-2022 10:13-0500 SaO2% (BldA) [Mass fraction]97 %MD Roni Dahl Work Phone: 1(451)[address]11-29-2022 10:13-0500 Systolic blood byvunqmk048 mm[Hg]MD Roni Dahl Work Phone: 1(082)[address]11-29-2022 09:23-0500 Inhaled oxygen flow rate3 L/minMD Roni Verhoff Work Phone: 1(591)[address]11-29-2022 08:38-0500 Body zylxzx203.56 cmMD Roni Verhoff Work Phone: 5(239)[address]11-29-2022 08:38-0500 Body ctoevr390.24 kgMD Roni Verhoff Work Phone: 5(549)2-[address] [place], [place] 1673810-10-2022 11:15-0400 Body ryebzl363.15 kgThomas Felter Other [facility] [employer] Other 09-27-2022 09:14-0400Diastolic blood mm[Hg] MD Roni Dahl Work Phone: 1(736)664-[address] [place], [place] 1673809-27-2022 09:14-0400 Heart rate57 /minMD Roni Dahl Work Phone: [phone])[address]09-27-2022 09:14-0400 Respiratory rate16 /minMD Roni Dahl Work Phone: 1([phone])[address]09-27-2022 09:14-0400 SaO2% (BldA) [Mass fraction]96 %MD Roni Dahl Work Phone: [phone]09-27-2022 09:14-0400 Systolic blood ybaotdoe053 mm[Hg]MD Roni Dahl Work Phone: 1(835)[address]09-27-2022 08:36-0400 Inhaled oxygen flow rate3 L/minMD Roni Nakia Work Phone: 1(019)[address]09-27-2022 07:55-0400 Body bureld096.1 cmMD Roni Dahl Work Phone: 1(929)[address]09-27-2022 07:55-0400 Body rbfips477.24 kgMD Roni Donjayde Work Phone: 1(222)[address]04-16-2022 11:07-0400 Body mass index (BMI) [Ratio]38.77 kg/g7GzgabjtovujLexy Tapia MD Work Phone: [facility]tx[facility]w44-[facility]-5453 11:07-0400Body rdgdjstecer23.2 [degF]Lexy Tapia MD Work Phone: [facility] HealthThmywa58-52-7159 11:07-0400Body .69 kg Lexy Tapia MD Work Phone: [place] [address]Ayodjr68-61-4222 11:07-0400Diastolic blood rgqbtvfy92 mm[Hg]Lexy Tapia MD Work Phone: [facility] HealthPmhwik53-51-8319 11:07-0400Heart rate67 /min Lexy Tapia MD Work Phone: [place] [address]Odyuzx22-14-9294 11:07-0400Respiratory rate16 /minLexy Tapia MD Work Phone: [address] [place], [place] [address]Xxlrpm38-83-4230 11:07-5349AvB0% (BldA) [Mass fraction]98 %Lexy Tapia MD Work Phone: [facility] HealthXoftqn34-08-7816 11:07-0400Systolic blood vtledeyy120 mm[Hg]Lexy Tapia MD Work Phone: [facility] HealthQqbufr08-71-1664 14:00-0400Respiratory rate18 /minDarryl Sandoval MD Work Phone: [facility] Work Phone: 1(773) 362-472005-30-2021 09:32-9712BsA6% (BldA) [Mass fraction]96 % Darryl Sandoval MD Work Phone: [facility] Work Phone: 1(954) 601-217205-30-2021 09:31-0400Body cxritpnspsm75.1 [degF] Darryl Sandoval MD Work Phone: [facility] Work Phone: 1(512) 891-830805-30-2021 09:31-0400Diastolic blood iwtfpjwi60 mm[Hg] Darryl Sandoval MD Work Phone: [facility] Work Phone: 1(137) 849-646405-30-2021 09:31-0400Heart rate78 /Hang Sandoval MD Work Phone: [facility] Work Phone: 1(929) 199-887005-30-2021 09:31-0400Systolic blood mcbrilhk217 mm[Hg] Darryl Sandoval MD Work Phone: [facility] Work Phone: 1(511) 695-570905-21-2021 09:19-0400Diastolic blood oyyvajfd55 mm[Hg] Naida Grissom MD Work Phone: [facility] [employer] Work Phone: 1(194) 178-359505-21-2021 09:19-8594SpD2% (BldA) [Mass fraction]96 % Naida Grissom MD Work Phone: [facility] [employer] Work Phone: 1(901) 638-934205-21-2021 09:19-0400Systolic blood bxpakcqj954 mm[Hg] Naida Grissom MD Work Phone: [facility] [employer] Work Phone: 1(160) 321-917505-21-2021 06:45-0400Body buulkp112.1 cmNaida Grissom MD Work Phone: [facility] [employer] Work Phone: 1(832) 977-271305-21-2021 06:45-0400Body mass index (BMI) [Ratio] 37.11 kg/v3UdohlNaida Grissom MD Work Phone: [facility] [employer] Work Phone: 1(222) 659-924305-21-2021 06:45-0400Body wfpowrksvaz75.19 [degF]Naida Grissom MD Work Phone: [facility] [employer] Work Phone: 1(213) 135-945905-21-2021 06:45-0400Body .15 kgNaida Grissom MD Work Phone: [facility] [employer] Work Phone: 1(331) 289-246405-21-2021 06:45-0400Heart rate87 /Dilshad Grissom MD Work Phone: [facility] [employer] Work Phone: 1(621) 105-233405-21-2021 06:45-0400Respiratory rate18 /Dilshad Grissom MD Work Phone: [facility] [employer] Work Phone: 1(271) 606-787110-01-2020 13:48-0400BMI (Body Mass Index)38.79 kg/m2 [facility], XJ62-12-7130 13:48-0400Body Ykgxiampmur97.49 [degF][facility], FR55-97-4124 13:48-0400Body weight 102.51 kgCal[facility], BJ89-20-2206 13:48-0400BP Diastolic 99 mm[Hg][facility], AS00-56-3538 13:48-0400BP Systolic 130 mm[Hg][facility], QR21-79-4620 13:48-4324Yzsyts544.6 [facility], OY34-60-8330 13:48-0400Pulse (Heart Rate)61 /minCal[facility], LH47-67-2467 13:48-0400Pulse Lrxpxcqn114 %[facility], VK79-36-2869 13:48-0400Respiratory Rate18 /[facility], ZX63-01-8684 06:47-0500Pulse Djpdhkcw729 %[facility], AZ39-61-7393 06:34-0500BP Ywnnqlcrl56 mm[Hg] [facility], NK74-09-8632 06:34-0500BP Ffwutepx558 mm[Hg] [facility], FE61-11-7892 06:00-0500BMI (Body Mass Index) 39.86 kg/v2DdrcxdlmegoCalais Regional Hospital, QS59-30-2460 06:00-0500Body Bjogppxblse97.8 [degF][facility], KO71-79-3822 06:00-0500 Body wnhodf867.06 kgCal[facility], JK10-76-8482 06:00-0500 Gxvfgj831 [facility], ZR28-04-2818 06:00-0500Pulse (Heart Rate)83 /[facility]Cal[facility], WR27-36-9936 06:00-0500 Respiratory Rate20 /minChristopher [facility] [place], [place] Encounters Encounter DateEncounter TypeCare ProviderFacilityStart: 04-12-2025 End: 40-22-7204bdvihgwbskDbnydRigo Dahl MDFacility:PM BellevueStart: 02-26-2025 End: 26-41-2890Askhexd encounter procedureMatyler Hylton MD-Lab [facility] Alliancetart: 02-26-2025 End: 41-62-6653jvebkhnphkTwmwa Verhoff MD Work Phone: [facility] Work Phone: Start: 02-22-2025 End: 23-52-9888cpuboqyllwItkauvg Vytautas Giedraitis MDFacility:PM [place] Start: 02-08-2025 End: 69-73-4341uzxcsmxdbyMsljkhf Vytautas Giedraitis MDFacility:PM [place] Start: 02-05-2025 End: 58-27-9007Sfkphb outpatient visit 15 minutesNikayleen Barger PA-C Work Phone: [facility] BucyrusComment on above:Cough, unspecified type (Primary Dx); Sore throat; Nasal congestionStart: 02-05-2025 End: 60-43-8237jtvcjmqsvkGSQZZ L. VERHOFFDcdanielle [facility] Ur[facility] CareStart: 01-15-2025 End: 42-68-7571Jsuxwr outpatient new 30 minutesChristian Lucio PA-C Work Phone: [facility] BucyrusComment on above: Bacterial URI (Primary Dx); DermatitisStart: 01-15-2025 End: 18-90-4528esiuzzxlscIMDKB M. LAMPORTDcdanielle [facility] Urgent CareStart: 12-22-2024 End: 23-86-8415aamiiltxwqMRMYPVS [facility] Main Campustart: 12-22-2024 End: 31-94-3106Qkofmfayuj hospital visit by physicianRoni Dahl MD Work Phone: [facility] TIFFIN LABComment on above:Gross hematuriaStart: 11-26-2024 End: 37-49-9109Lhbzxr flowsheetChristopher Ora Canales DPM Work Phone: [facility] PODIATRYStart: 11-26-2024 End: 69-47-3659Qcivuq flowsheetChristopher Ora Bohhuy DPM Work Phone: n[facility] WWW PODIATRYStart: 11-26-2024 End: 98-74-8421Erhxmr outpatient visit 15 minutesChristopher Ora Canales DPM Work Phone: noms WWW PODIATRYComment on above:Grade 2 ankle sprain (Primary Dx); Ankle instability, right; Right foot dropStart: 11-26-2024 End: 77-39-2803bgrbfwgtjqNIOYQPUHWPD Ora BOHACHNot AvailableStart: 09-15-2024 End: 76-44-8091vypqhkdesmNWZENRZIGRD Ora BOHACHNot AvailableStart: 09-10-2024 End: 89-78-8385Brjmbrb encounter procedureRoni Dahl MD Work Phone: [facility] [address] Work Phone: Start: 09-10-2024 End: 23-71-1307bspshjqpllNltuu Verhoff MD Work Phone: [facility] Work Phone: Start: 09-07-2024 End: 22-00-5715rzglndlqafPfauiitJacqui Harris MDFacility:PM [place] Start: 08-28-2024 End: 23-25-8487iaefinxagoOCYI Dejan BarreraSinging River Gulfporttart: 08-28-2024 End: 87-74-4941Yyehbxcnym hospital visit by Harjeet Dahl MD Work Phone: mZ LaboratoryComment on above:Essential hypertension; Palpitations; Hyperlipidemia, unspecified hyperlipidemia type; Hypothyroidism, unspecified type; Vitamin D deficiency diseaseStart: 08-27-2024 End: 04-10-6106aknvrhkmmrEBVDH L Nic [facility] Hospitaltart: 08-27-2024 End: 71-35-1884Fzdzhbjqaq hospital visit by Harjeet Dahl MD Work Phone: mwhZ LaboratoryComment on above:Mixed incontinence urge and stressStart: 08-27-2024 End: 75-78-9510lgbdivunxlIAFF S RASHEEDAMaynor Lafayette HospitalStart: 08-27-2024 End: 11-81-5964Wfyxjmhcng hospital visit by physicianMwh Additional Xray At Mw MWHZ RESPIRATORY THERAPYComment on above:Essential hypertension; Palpitations; Hyperlipidemia, unspecified hyperlipidemia type; Hypothyroidism, unspecified type; Vitamin D deficiency diseaseStart: 08-24-2024 End: 03-24-5316jqesulkwhmYkizyRigo Dahl MDFacility:PM BellevueStart: 08-17-2024 End: 36-90-9840Tpdkqo flowsheetChangela Canales DPM Work Phone: noms WWW PODIATRYStart: 08-17-2024 End: 32-87-6862Pkgoot flowsheetChangela Canales DPRobyn Work Phone: noms WWW PODIATRYStart: 08-17-2024 End: 91-90-7176Derqyb outpatient new 30 minutesChristopher Ora Canales DPRobyn Work Phone: noms WWW PODIATRYComment on above:Grade 2 ankle sprain (Primary Dx); Pain in joint involving right ankle and foot; Right foot pain; Ankle instability, rightStart: 08-17-2024 End: 74-61-8958gvjuuhrinzRGKVCRNOVDG J BOHACHNot AvailableStart: 08-11-2024 End: 71-19-0853Stbjuzq encounter procedureRoni Dahl MD Work Phone: [facility] [address] Work Phone: Start: 08-11-2024 End: 62-31-2653ekovwvdxdjCjryk Verhoff MD Work Phone: [facility] Work Phone: Start: 07-10-2024 End: 85-68-7345Fwghgedas department patient visitLexy Tapia MD Work Phone: [facility] Emergency DepartmentComment on above: Sprain of right ankle, unspecified ligament, initial encounter (Primary Dx) Start: 06-24-2024 End: 87-63-8147Qntcmrdse department patient visitMonster Mei MD Work Phone: [facility] Emergency DepartmentComment on above: COVID-19 virus infection (Primary Dx)Start: 06-01-2024 End: 23-61-1173yalxsblofqHvlomRigo Dahl MDFacility:PM [place]vueStart: 05-18-2024 End: 56-62-8181lodptrzpqcRlhcuRigo Dahl MDFacility:PM BellevueStart: 05-08-2024 End: 43-17-6929potmsznanmPKWCP L [facility] Healthcaretart: 05-08-2024 End: 06-14-9844Zqhsaxrmlq hospital [facility] by [facility]Hel[facility] M[facility] MammographyComment on above:Visit for screening mammogramStart: 04-20-2024 End: 13-31-9118odlychydwrEflbpRigo Dahl MDFacility:PM BellevueStart: 02-06-2024 End: 68-13-6747hqkzhjruseGF Nancy Verhoff Work Phone: [facility] Work Phone: Start: 02-06-2024 End: 70-55-9228Nundrdp encounter procedureMD Roni Dahl Work Phone: [facility] Work Phone: Start: 12-19-2023 End: 94-39-1361oqkijrntetBW Nancy Verhoff Work Phone: [facility] Work Phone: Start: 12-19-2023 End: 19-27-6106Yjemflr encounter procedureMD Roni Ochoahoff Work Phone: [facility] [address] Work Phone: Start: 12-12-2023 End: 10-84-7256avlsnzrcxvAQLWV L [facility] Healthcaretart: 11-14-2023 End: 20-45-2704Ozeqkcjqu department patient visitJessica Farrar MD Work Phone: [facility] EDComment on above:Paroxysmal atrial fibrillation (HCC) (Primary Dx)Start: 10-23-2023 End: 74-73-3430imhdbdujlyRPCT S ANGEL LUISOhio Valley Hospitaltart: 10-23-2023 End: 76-39-8939Qxbpqtrvf department patient visitChangela Tapia MD Work Phone: [facility] EDComment on above:New onset atrial fibrillation (HCC) (Primary Dx); Atrial fibrillation with RVR (HCC); History of chronic kidney disease; Symptoms of dehydration; Fluid level behind tympanic membrane of both ears; Acute pansinusitis, recurrence not specified; Nausea vomiting and diarrheaStart: 10-22-2023 End: 12-85-8799msouinxvbaCLIDK L [facility] Healthcaretart: 10-01-2023 End: 05-89-9201apmfcqsfeiSIGBV L [facility] HospitalStart: 09-19-2023 End: 11-27-0032tskkckunfbVZ Roni Ochoahoff Work Phone: [facility] Work Phone: Start: 09-19-2023 End: 55-12-9002Pdouwly encounter procedureMD Roni Ochoahoff Work Phone: [facility] [address] Work Phone: Start: 09-16-2023 End: 03-36-0337bvesicquwsXtvlzswu Talal SarminiFacility:FTMCStart: 09-16-2023 End: 30-42-0677Uhvaeua encounter procedureDavion Olivares [facility] Start: 07-01-2023 End: 85-25-4812Thvjrervq department patient visitMonster Mei MD Work Phone: [facility] EDComment on above:COVID-19 virus infection (Primary Dx)Start: 05-27-2023 End: 98-66-0183tbfjwrffxbQE Roni Donjayde Work Phone: [facility] Work Phone: Start: 05-27-2023 End: 12-45-6369Eudsmku encounter procedureMD Roni Dahl Work Phone: [facility] [address] Work Phone: Start: 05-02-2023 End: 40-29-2556pgbofkdrdgQSLPTTBX TIARATrinity Health System [facility] Campus AmbulatoryStart: 05-02-2023 End: 90-98-9805Edsijwjv SupportMerit Health Woman'S HospitalninoLoma Linda [facility] Work Phone: [facility] AudiologyComment on above: Sensorineural hearing loss, bilateral (Primary Dx); Hearing loss, unspecified hearing loss type, unspecified lateralityStart: 05-02-2023 End: 33-14-5134Faxvew outpatient new 45 minutesDaniel Earnest Jasper DO Work Phone: [facility] ENT PhysiciansComment on above:Bruxism (teeth grinding) (Primary Dx); Acute suppurative otitis media of left ear without spontaneous rupture of tympanic membrane, recurrence not specified; ROSETTE on CPAP; Hearing loss, unspecified hearing loss type, unspecified lateralityStart: 04-11-2023 End: 78-51-0072iyrdajnzipOIRPBJGCleveland Clinic Akron General Lodi Hospitaltart: 03-28-2023 End: 89-81-3653nclcsdhfmxJKMWR [facility] Hospitaltart: 03-19-2023 End: 60-00-9904Frnojtxlg to same day surgery centerMD Roni Ochoajayde Work Phone: [facility]-Digestive [facility] Work Phone: Start: 03-19-2023 End: 44-93-5916mawzdbozsqPV Roni Ochoajayde Work Phone: [facility] Work Phone: Start: 03-14-2023 End: 95-12-6149rrbpabqqfsBjnaxm Felter Other [employer] Other Start: 46-75-4974Inkfdk outpatient visit 25 minutes Yanelis Sandra [facility] [place]Start: 71-88-1122Sooxkcajh encounter Yanelis Sandra [facility]icsStart: 03-13-2023 End: 36-45-6441Wulixmfaor hospital visit by Brooklynn Guzman MD Work Phone: [facility] [employer] [place] UltrasoundComment on above:Renal cystStart: 03-08-2023 End: 19-46-0226cjhxmfqjmhWlxx Wilson Other [employer] Other start: 50-63-6658Kqnuuluqq encounterDadixon Pedroza Referral CoordinatorStart: 05-71-8712Rslpdh outpatient new 30 minutesDale Wilson FPG [facility] NeurosurgeryStart: 03-07-2023 End: 42-33-2844jmuyghuaogQN Roni Donjayde Work Phone: [facility] Work Phone: Start: 03-07-2023 End: 70-08-7228Owflcdc encounter procedureMD Roni Donjayde Work Phone: [facility]-XRay [place] Work Phone: Start: 03-01-2023 End: 29-48-3469Hyxhxwqli department patient visitMD Roni Dahl Work Phone: [facility]-Emergency Room Work Phone: Start: 02-28-2023 End: 49-20-9579cjbtnxszlcNrwuluvy Talal SarminiFacility:[facility] DHStart: 02-28-2023 End: 72-22-8275Mjtdioj encounter procedureMuhammad Talal Sarmini 120-7071Bxscqn-BgquiThe [facility] Health Start: 02-27-2023 End: 34-82-9896Zkwedymovc hospital visit by Harjeet Dahl MD Work Phone: [facility] RadiologyStart: 02-25-2023 End: 19-53-0962nceqjdifysGakgfl Felter Other [employer] Other Start: 71-64-2745Yjclhpgjf encounterThomas FelterFPG [facility] OrthopedicsStart: 02-21-2023 End: 03-17-8895dnxmaikkdjXZ Roni Dahl Work Phone: [facility] Work Phone: Start: 02-21-2023 End: 25-68-1905Sofqaee encounter procedureMD Roni Dahl Work Phone: [facility]-MRI [place] Work Phone: Start: 02-14-2023 End: 00-03-0727fmztbfopnvHtsscm Felter Other [employer] Other Start: 79-00-2288Lvjvnbyqj encounterThomas FelterFPG [facility] [place] CreekStart: 02-08-2023 End: 74-19-0219Vpkmlpdpn department patient visitRoni Dahl MD Work Phone: [facility] EDComment on above:Chronic low back pain with right-sided sciatica, unspecified back pain laterality (Primary Dx)Start: 02-04-2023 End: 82-09-9639uuonmqjbmiZffsxf Gonzaleser Other [facility] [employer] Other Start: 02-12-2708Rmxfgcvsr encounterThomas GonzaleserFPG Mario OrthopedicsStart: 01-30-2023 End: 16-78-5606ehfsucldzvWveqe Jorge Other [facility] [employer] Other Start: 61-38-2391Atdgje outpatient visit 25 minutes [facility] Dragoon RoadStart: 11-25-2022 End: 04-26-7353Zmldmfuxm department patient visitSalomon Juares MD Work Phone: [facility] EDComment on above:Non- recurrent acute suppurative otitis media of left ear without spontaneous rupture of tympanic membrane (Primary Dx); Acute nonintractable headache, unspecified headache typeStart: 08-29-2022 End: 36-83-1136Dyucgddeav hospital visit by physicianMwh Additional [facility]ray At [facility] RadiologyComment on above:Essential hypertension; Palpitations; Hypothyroidism, unspecified type; Hyperlipidemia, unspecified hyperlipidemia type; Vitamin D deficiency diseaseStart: 08-28-2022 End: 75-48-0790Duhtyac encounter procedureBeshannon Spencer 144-1710Wzkpoi-FpursFirelands Regional [facility] Start: 08-21-2022 End: 78-72-5295srvpsijtglBQ Nancy Verhoff Work Phone: [facility] Work Phone: Start: 08-21-2022 End: 23-84-9084Imrpoiu encounter procedureMD Roni Dahl Work Phone: [facility] [address] Work Phone: Start: 07-31-2022 End: 83-32-6240yoztksjtmbPuzeqn Felter Other [facility] [employer] Other Start: 07-41-5190Juqtvw outpatient visit 15 minutes Yanelis Sandra [facility] [place]Start: 07-31-2022 End: 28-55-4794Vkwyhorazw hospital visit by Saqib SCHUMACHER Physical TherapyComment on above:ArrivedStart: 07-26-2022 End: 07-14-7608Incxyfn encounter procedureVonda HERNANDEZ [facility] Start: 07-17-2022(Procedure) ShortThbindu RolonSouthview Medical Center OutPtStart: 07-17-2022 End: 25-06-3309Zwcbttgxc to same day surgery centerMD Roni Dahl Work Phone: [facility]ive [facility] Work Phone: Start: 07-17-2022 End: 04-85-6689vfutwmqrkkIG Roni Dahl Work Phone: [facility] Work Phone: Start: 07-12-2022 End: 83-58-5702Zdrlgpcpz department patient visitAlma Mao DO Work Phone: [facility] EDComment on above:Acute pharyngitis, unspecified etiology (Primary Dx)Start: 07-10-2022 End: 75-47-0664Dtymbxc encounter procedureDonna Spencer [phone]-PtlljFirelands Regional Medical [facility] Start: 07-03-2022(Procedure) ShortThomas FeltSouthview Medical Center OutPtStart: 07-03-2022 End: 93-87-3878Gvrjsgqcm to same day surgery centerMD Roni Ochoahoff Work Phone: [facility] Work Phone: Start: 07-03-2022 End: 79-12-4500vspztapapyNR Roni Ochoahoff Work Phone: [facility] Work Phone: Start: 06-26-2022 End: 87-56-7288Hvnntxs encounter procedureDonna Spencer [phone]-JohotFirelands Regional Medical Center [facility] Start: 06-14-2022 End: 06-22-2021Wwmwlfikkf hospital visit by physicianMaria R SCHUMACHER Physical TherapyComment on above:ArrivedStart: 06-13-2022 End: 84-74-0422ydrjgthnrzQobkwy Felter Other [facility] [employer] Other Start: 71-86-5300Fsphqw outpatient visit 25 minutes Yanelis Sandra [facility] [place]Start: 05-29-2022(Procedure) Bj GarciaWvumedicine [facility] OutPtStart: 05-29-2022 End: 50-33-1238Lpprtkycv to same day surgery centerMD Roni Ochoahoff Work Phone: [facility]-Digestive HealthStart: 05-29-2022 End: 54-29-7511yiziieckudQF Roni Verhoff Work Phone: [facility] Work Phone: Start: 05-07-2022 End: 94-93-7013cpmcmnlqgqJW Roni Ochoahoff Work Phone: [facility] Work Phone: Start: 05-07-2022 End: 64-85-2781Wlkvdgb encounter procedureMD Roni Ochoahoff Work Phone: [facility]-MRI [address] RdStart: 05-02-2022 End: 24-12-7104ownkwjqwopRwwvdj Felter Other [employer] Other Start: 53-36-6176Nirjik outpatient visit 25 minutes Yanelis Sandra [facility] [place]Start: 04-09-2022 End: 37-64-1313cscjxggtsiOevzgq Felter Other [employer] Other Start: 37-26-2965Ahxgwa outpatient visit 25 minutes Yanelis RolonerFPJose Carlos [facility] [place]Start: 03-27-2022 End: 10-22-5545Oepsxktlt to same day surgery centerMD Roni Dahl Work Phone: [facility]-Digestive HealthStart: 03-14-2022 End: 03-18-7228Zjipuof encounter procedureMD Roni Dahl Work Phone: [facility] Start: 02-22-2022 End: 21-14-8734Tunuvcc encounter procedureMD Roni Dahl Work Phone: [facility]-Lab [address]Start: 01-31-2022 End: 92-29-5204Zciyhtguor hospital visit by physicianHel[facility] Ronnie [facility] Tani MammographyComment on above:Visit for screening mammogramStart: 12-07-2021 End: 54-96-5864Yuxasjy encounter procedureMD Roni Dahl Work Phone: [facility] Start: 11-30-2021 End: 68-15-2408Nvbpnkvkrk hospital visit by physicianMmirtha [address] RadiologyComment on above:H/O repair of right rotator cuffStart: 11-30-2021 End: 35-50-1326Vmoezcxqhu hospital visit by physicianRoni Dahl MD Work Phone: [facility] RadiologyStart: 10-30-2021 End: 34-12-7275Ctuitho encounter procedureQuintinshannon Moses Johanna [phone]-ZgnyzFirelands Regional Medical Center [facility] Start: 10-26-2021 End: 96-21-0883Rtaajoe encounter procedureRoni Dahl MD Work Phone: mthz LaboratoryStart: 10-26-2021 End: 97-46-9029Psvzswxufa hospital visit by Harjeet Dahl MD Work Phone: mthz LaboratoryComment on above:Women's annual routine gynecological examination; Vaginal burningStart: 10-14-2021 End: 80-71-5823Lpqupdxni department patient visitChangela Tapia MD Work Phone: [facility] EDComment on above:Acute cystitis with hematuria (Primary Dx); Vaginal yeast infectionStart: 10-11-2021 End: 62-59-5165Xunngdsade hospital visit by Alfredo Chen PT Work Phone: mwhz Physical TherapyComment on above:ArrivedStart: 10-04-2021 End: 32-86-6936Ezjigyicxl hospital visit by Alfredo Chen PT Work Phone: mwhz Physical TherapyComment on above:ArrivedStart: 09-28-2021 End: 69-11-0168Knfyoffcsa hospital visit by Luh DEAN Physical TherapyComment on above:ArrivedStart: 09-25-2021 End: 87-47-6465Vfghpqvjqh hospital visit by Tracy Quinones Physical TherapyStart: 09-21-2021 End: 66-85-4232Jwcfvmjedi hospital visit by Luh DEAN Physical TherapyComment on above:ArrivedStart: 09-19-2021 End: 37-16-5556Dwyxpzepgf hospital visit by Tracy Quinones Physical TherapyComment on above:ArrivedStart: 09-15-2021 End: 94-38-7707Upnipntiit hospital visit by Luh Martel PTAMWHSerafin Physical TherapyComment on above:ArrivedStart: 09-13-2021 End: 83-63-2688Oevrytcihj hospital visit by Luh Martel PTAWHSerafin Physical TherapyComment on above:ArrivedStart: 09-07-2021 End: 73-28-8133Ymurzzaaqc hospital visit by Alfredo Chen PT Work Phone: WHZ Physical TherapyComment on above:ArrivedStart: 09-05-2021 End: 99-76-2398Ujmvslcfis hospital visit by Luh Martel PTAGENEVA GENERAL HOSPITALSerafin Physical TherapyComment on above:ArrivedStart: 08-31-2021 End: 29-22-2073Qhvsddpoab hospital visit by Luh Martel PTAGENEVA GENERAL HOSPITALSerafin Physical TherapyComment on above:ArrivedStart: 08-29-2021 End: 54-09-2547Zqmndwbwdg hospital visit by Harjeet Dahl MD Work Phone: WHZ RESPIRATORY THERAPYComment on above:Essential hypertension; Palpitations; Hypothyroidism, unspecified type; Hyperlipidemia, unspecified hyperlipidemia type; Vitamin D deficiency diseaseStart: 08-10-2021 End: 84-64-8074Yftwnfskzg hospital visit by Clinton [facility] RadiologyComment on above:History of arthroscopy of right shoulderStart: 06-14-2021 End: 92-38-8056Rjfljaqulk hospital visit by Luh DEAN Physical TherapyComment on above:ArrivedStart: 06-12-2021 End: 98-02-0553Edvssrtvbl hospital visit by Juan Schmidt Physical TherapyStart: 06-12-2021 End: 43-35-2051Bhsgjvkshx hospital visit by Clinton Peck Pat Screening ScheduleGENEVA GENERAL HOSPITALZ PRE ADMITComment on above:Acute non-recurrent pansinusitisStart: 05-10-2021 End: 88-38-1884Trdqrjwlwu hospital visit by Luh DEAN Physical TherapyComment on above:ArrivedStart: 05-05-2021 End: 49-92-4441Nkdhszppsv hospital visit by Alfredo Chen PT Work Phone: mwhz Physical TherapyComment on above:ArrivedStart: 05-02-2021 End: 83-84-4839Sztkjpnksi hospital visit by Juan Schmidt Physical TherapyComment on above:ArrivedStart: 04-27-2021 End: 62-58-7863Wyoatxaxkv hospital visit by physicianRei Dig Rad [address] [place] [address] RadiologyComment on above:Right shoulder pain, unspecified chronicity Start: 04-27-2021 End: 93-72-3964Vdxoxqtuzo hospital visit by Harjeet Dahl MD Work Phone: [facility] RadiologyStart: 01-20-2021 End: 97-03-2690Dtmcddhnla hospital visit by Clinton Mammography [facility] MammographyComment on above:Screening mammogram, encounter for Start: 01-09-2021 End: 87-94-9514Akwgvtmrsj hospital visit by Harjeet Dahl MD Work Phone: mwhz LaboratoryComment on above:Low hemoglobinStart: 12-09-2020 End: 48-19-7698Eyfgzwdnum hospital visit by Harjeet Dahl MD Work Phone: mwhz LaboratoryComment on above:Low hemoglobinStart: 11-27-2020 End: 40-74-6956Bhegefpft department patient visitDarryl Sandoval MD Work Phone: [facility] EDComment on above:Diarrhea, unspecified type (Primary Dx); General weakness; Urinary incontinence, unspecified typeStart: 11-22-2020 End: 44-80-7463Ejpgrsujdf hospital visit by Harjeet Dahl MD Work Phone: mwhz LaboratoryComment on above:Diarrhea of presumed infectious origin; Intractable vomiting with nausea, unspecified vomiting typeStart: 11-18-2020 End: 72-76-4332Kirlsjmqm department patient visitNaida Grissom MD Work Phone: [facility] EDComment on above:Nausea vomiting and diarrhea (Primary Dx)Start: 08-11-2020 End: 59-65-7919Evbogzxzhf hospital visit by Harjeet Rivera LaboratoryComment on above:Essential hypertension; Palpitations; Hypothyroidism, unspecified type; Hyperlipidemia, unspecified hyperlipidemia type; Vitamin D deficiency diseaseStart: 08-09-2020 End: 12-03-7491Dljypbwtjh hospital visit by Harjeet Rivera RESPIRATORY THERAPYComment on above:Essential hypertension; Palpitations; Hypothyroidism, unspecified typeStart: 06-29-2020 End: 15-16-2890Ahmmawghrm hospital visit by physicianMaria [facility] Covid Screening ScheduleMONTEFIORE [facility] Covid ScreeningComment on above:Acute recurrent pansinusitis; Fever, unspecified fever causeStart: 03-31-2020 End: 47-69-2015Hugkaemujk hospital visit by Harjeet Rivera LaboratoryComment on above:Viral illness; Exposure to COVID-19 virusStart: 03-31-2020 End: 83-18-5162Qbspognop department patient visitChangela Tapia Work Phone: [facility] EDComment on above:General weakness (Primary Dx); YANNA (middle ear effusion), bilateralStart: 11-09-2019 End: 27-63-7085Awcfmcppmp hospital visit by mirtha Mammography [facility] MammographyComment on above:Visit for screening mammogramStart: 07-07-2019 End: 85-22-6875Luolonxwvh hospital visit by Harjeet Dahl MD Work Phone: mZ RESPIRATORY THERAPYComment on above:Essential hypertension; Pure hypercholesterolemia; Acquired hypothyroidism; Palpitations; Vitamin D deficiency diseaseStart: 05-30-2019 End: 86-30-7181Kmuufxlbz department patient visitChangela Tapia Work Phone: [facility] EDComment on above:Acute recurrent frontal sinusitis (Primary Dx); Acute middle ear effusion, bilateralStart: 04-23-2019 End: 85-86-1835Jcfxwvfodu hospital visit by Harjeet Dahl MD Work Phone: mWHZ LaboratoryComment on above:Diarrhea of presumed infectious originStart: 03-10-2018 End: 18-07-3946Gggdcpg encounterANDREWS [facility] HospitalStart: 03-10-2018 End: 66-76-5979Pwooutn encounterANDREWS [facility] HospitalStart: 06-20-2017 End: 97-03-8108NeqlnmyngcRCLP W ROMANFacility:[facility] Procedures DateProcedureProcedure DetailPerforming ClinicianStart: 41-65-7860Qnzws dip stick/tablet reagent auto microscopyBethany Trevor Bijan CERTIFIED ORTHOTIST PRACTICE MANAGER - BINDING PRINTER Work Phone: start: 55-73-4615Wclwmrfetgtnc metabolic panelGreg Dejan Pascal MD Work Phone: Start: 84-37-1149Qzfng panelGreg Dejna Pascal MD Work Phone: Start: 83-59-4930Qew routine ecg w/least 12 lds w/i&r Reagan Pascal MD Work Phone: Start: 92-53-0230Sgjng ankle complete minimum 3 views Lexy Tapia MD Work Phone: Start: 79-92-3220TOPKK-19, RAPIDVeselin Sigifredo STEINER Work Phone: start: 07-86-2475Aglp ia streptococcus group aVeselin Sigifredo STEINER Work Phone: start: 43-90-0593ZfqajrxytoxUyetl Lamport PA-C Work Phone: start: 53-73-9464Nhoce metabolic panel calcium total Jessica Farrar MD Work Phone: Start: 45-25-5336Qyj routine ecg w/least 12 lds w/i&r Jessica Farrar MD Work Phone: Start: 19-49-5042Mmy routine ecg w/least 12 lds w/i&r Lexy Tapia MD Work Phone: Start: 27-06-7481Iftzikmefe microscopic only Lexy Tapia MD Work Phone: Start: 96-38-4577Ppaku dip stick/tablet rgnt auto w/o microscopyChristopher Robyn Tapia MD Work Phone: Start: 91-44-2902Ziscu of troponin quantitative Lexy Tapia MD Work Phone: Start: 42-83-8676Hne routine ecg w/least 12 lds w/i&r Lexy Tapia MD Work Phone: Start: 37-10-0792Cmnlhqpcgdoow metabolic panel Lexy Tapia MD Work Phone: Start: 44-95-5339NFPYX-19, RAPIDMonster Mei MD Work Phone: start: 82-09-2061Mptqduvuu influenzaMonster Mei MD Work Phone: start: 44-64-9637Subcsgivp on hipMD Roni Dahl Work Phone: start: 72-90-3641Pr retroperitoneal real time w/image limitedThomas Thomas STEINER Work Phone: Start: 33-70-2098E-ray of lumbar spine, six views including bending viewsMD Roni Dahl Work Phone: start: 97-53-8385XU lumbar spine wo conMD Roni Dahl Work Phone: start: 99-25-8576Rkrgltsuzt exam chest 2 viewsJoseph Aurelia Juares MD Work Phone: Start: 11-25-2022 End: 31-02-9331Zh head/brain w/o contrast materialJoseph Aurelia Juares MD Work Phone: Start: 54-75-9331Azrcqzgbxgjys metabolic panelJonancy Juares MD Work Phone: Start: 32-54-3072Hgmukxrjer microscopic onlyJonancy Juares MD Work Phone: Start: 69-82-7251Ygiql dip stick/tablet rgnt auto w/o microscopySalomon Juares MD Work Phone: Start: 85-42-3227Epwoojpxfi exam chest 2 viewsReagan Pascal MD Work Phone: Start: 75-73-4751VjuwisimvagabthxplxneofzhvAxhcd SALAM Start: 96-75-4919Hrdbrblahomgsl destruction of peripheral nerveMD Roni Dahl Work Phone: start: 91-57-0035Owlozterdqhpbx destruction of peripheral nerveMD Roni Dahl Work Phone: start: 09-24-7281Hkdfqlwhq of anesthetic agent into peripheral nerve for analgesiaMD Roni Dahl Work Phone: start: 18-11-7434IS lumbar spine wo conMD Roni Dahl Work Phone: start: 78-92-9669Kdrykkgmc of local anesthetic into sacroiliac jointMD Roni Dahl Work Phone: start: 43-11-1953J-ray of lumbar spine, four viewsMD Roni Dahl Work Phone: start: 24-84-6170Jpjrdrdxp mammography bi 2-view breast inc Ingrid Dahl MD Work Phone: start: 06-72-4705Hadr energy X-ray absorptiometryMD Roni Dahl Work Phone: start: 80-37-0954Hrnzd shoulder complete minimum 2 viewsDavid Marquise Meyer DO Work Phone: Start: 69-67-2844Gribeuotjp microscopic onlyAntwon Guo MD Work Phone: Start: 24-32-8969Ljzeh dip stick/tablet rgnt auto w/o microscopyWebraeden Guo MD Work Phone: Start: 09-77-8828Rcqxejogzc microscopic only Lexy Tapia MD Work Phone: Start: 94-16-8862Lhnso dip stick/tablet rgnt auto w/o microscopyChristopher Robyn Tapia MD Work Phone: Start: 61-51-8316Pgt routine ecg w/least 12 lds w/i&r Reagan Pascal MD Work Phone: Start: 25-08-2653Pznxg shoulder complete minimum 2 viewsDavid Marquise Pocos DO Work Phone: Start: 93-00-8409Vfntqf of musculotendinous cuff of shoulderBeth Johanna Start: 79-04-4608Ojmmd shoulder complete minimum 2 viewsDavid Marquise Pocos DO Work Phone: Start: 19-87-2183Dletv count complete automatedRoni Dahl MD Work Phone: start: 31-06-7807Uwhsa count complete automatedRoni Dahl MD Work Phone: start: 50-39-0684VPANO-19, RAPIDCiisiah Sandoval MD Work Phone: Start: 38-32-3735Sgyvpeelgsggf metabolic panelDarryl Sandoval MD Work Phone: Start: 33-03-7075Noqwc dip stick/tablet reagent auto microscopyDarryl Sandoval MD Work Phone: Start: 46-39-6505Xpkwvlebodjkc metabolic panelCristinecy Angel Dahl MD Work Phone: start: 25-28-1529Brvqjagsml microscopic onlyNaida Grissom MD Work Phone: Start: 80-47-0621Jytya dip stick/tablet rgnt auto w/o microscopyNaida Grissom MD Work Phone: Start: 11-18-2020 End: 80-95-8972Imqbv metabolic panel calcium totalKatharinatabatha Angel Grissom MD Work Phone: Start: 99-69-4098Hlmjuyu function panelNaida Grissom MD Work Phone: Start: hydroxy includes fractions if performedGreg S Lumific Work Phone: Start: 28-44-4690Xufev of magnesiumGreg S Lumific Work Phone: Start: 93-29-9954Sdhlc of thyroid stimulating hormone tshGreg S Lumific Work Phone: Start: 62-35-4806Bnvcl count complete auto&auto difrntl wbcGreg S Lumific Work Phone: Start: 82-40-7259Pjtgwmdmuhszh metabolic panelGreg S Lumific Work Phone: Start: 75-53-6473Ibvkg panelGreg S Lumific Work Phone: Start: 74-45-7188SSSOVSJ FASTING?Reagan Wylie Lumific Work Phone: Start: 08-20-9585Nms routine ecg w/least 12 lds w/i&r Reagan Wylie Lumific Work Phone: Start: 71-16-8017Aq head/brain w/o contrast material Lexy Tapia Work Phone: Start: 59-17-0063Lpldsuohrc exam chest single view Lexy Tapia Work Phone: Start: 29-59-9053Snbvw of thyroid stimulating hormone tshChangela Tapia Work Phone: Start: 28-20-6607Jmbbv of troponin quantitative Lexy Tapia Work Phone: Start: 72-39-9593Pmogd count complete auto&auto difrntl wbcChangela Taipa Work Phone: Start: 16-97-4247Vfyvptweey microscopic only Zhaobo Carlson Willie Work Phone: Start: 28-52-1250Rfvqs dip stick/tablet rgnt auto w/o microscopyChangela Carlson Willie Work Phone: Start: 05-28-4281Ietqxtmelntzi metabolic panelGreg Dejan Pascal MD Work Phone: Start: 56-02-9355Ngngk panelGreg Dejan Pascal MD Work Phone: Start: 98-20-7768EFIMSZQ FASTING?Reagan Dejan Pascal MD Work Phone: Start: 43-69-0356Hzpjftiazx exam chest 2 viewsReagan Pascal MD Work Phone: Start: 22-31-4179Tbikoc of stress incontinence by suprapubic slingBeshannon Spencer Start: 19-00-6283Yivxqkkgsb exam chest 2 views Zhaobo Carlson Willie Work Phone: Start: 28-14-0570Nmtpl/antitoxin assay tissue culture Roni Dahl MD Work Phone: start: 26-81-9416Sshlisqyauopmupes with dilation of urethral strictureDonna Spencer Start: 31-02-2208Ikxkkidu injection of lumbar spine using fluoroscopic guidanceBeshannon Spencer Comment on above:L5-S1 60 % immediate relief still continuesStart: 40-18-8498Sutinowkbqicch ablation of nerve root of lumbar spine using fluoroscopic guidanceBeshannon Johanna Comment on above:LEFT L2-S15/20/15 Rt RFA 70% relief Start: 51-22-2468Yynqjbgpiozsmn ablation of nerve root of lumbar spine using fluoroscopic guidanceBeshannon haystagg Comment on above:RIGHT L2-G6Knbwx: 63-18-1178Oppvseivj of facet joint using fluoroscopic guidanceBeFreta.lá Comment on above:BILATERAL L3-S1 LUMBAR FACETStart: 52-43-8988Gkwtl anesthetic facet joint nerve blockBe haystagg Comment on above:Bilateral L3-Q0Xprbf: 03-19-2014 Injection of sacroiliac joint using fluoroscopic guidanceBeFreta.lá Comment on above:Bilateral SIJIStart: 03-23-2013 Injection of sacroiliac joint using fluoroscopic guidanceBeFreta.lá Comment on above:Bilateral SIJIStart: 11-17-2012 Injection of sacroiliac joint using fluoroscopic guidanceBeFreta.lá Comment on above:Left SIJIStart: 70-24-5816Katwivgpw of sacroiliac joint using fluoroscopic guidanceBeFreta.lá Comment on above:Right SIJIStart: 05-01-9224Gkhsxiyocs examination of esophagus, stomach and duodenumBe haystagg Start: 03-34-8199Hvjzvgcr injection of lumbar spine using fluoroscopic guidanceBeFreta.lá Comment on above:Left L5-G0Aewqf: 74-68-5348Mtgwgyec injection of lumbar spine using fluoroscopic guidanceBeFreta.lá Comment on above:Left L5-D9Kyopk: 08-27-2011 Cystourethroscopy with dilation of urethral strictureBe haystagg Start: 33-42-3460Oiuhjssdktjhfko of right heartBe haystagg Basal cell carcinoma of forehead (disorder)Donna haystagg Decompression of median nerveBe haystagg Comment on above:RIGHT IN 2002, LEFT 2006Extraction of cataractBe Johanna Gastric polypectomyDonna Spencer History of repair of musculotendinous cuff of shoulder H/O repair of right rotator cuffMwh 1Repair of ankleDonna Spencer Repair of hipBeth Johanna Repair of ligamentBeshannon Spencer Comment on above:RIGHT ANKLERepair of ventral hernia Donna Johanna Total abdominal hysterectomy with bilateral salpingo-oophorectomyDonna Spencer Total arthroplasty of knee, geomedic or polycentricDonna Spencer Comment on above:RIGHT 2005, LEFT 2010 Plan of Treatment DateCare ActivityDetailAuthorStart: 83-39-7213VHwK/Tdap/Td vaccine (2 - Td or Tdap)DTaP/Tdap/Td vaccine (2 - Td or Tdap)[facility] HospitalStart: 72-30-9197Wcuwt cancer screen colonoscopyColon cancer screen colonoscopyTriHealth Bethesda Butler [facility]: 40-47-9713Ygegluqrh for malignant neoplasm of colonColon cancer screen colonoscopyTriHealth Bethesda [facility] Hospital: 12-23-2025 End: 68-65-8118Esxpyjl encounter xlenxvosz66/25/2026 8:30 AM EDT Office Visit [facility] UROLOGY Part of [address] [place] [address] John Paul Mayfield, CERTIFIED ORTHOTIST PRACTICE MANAGER - BINDING PRINTER [address] [place] [address] [address] [place] [address] 1Y f/[facility] UROLOGY Part of [facility] HospitalComment on above:1Y f/uStart: 13-31-4395Foqtz panelLipidsBon [facility] HospitalStart: 08-20-2025 Depression MonitoringDepression MonitoringInova Women'S HospitalStart: 78-80-3879Puoiubohk for malignant neoplasm of breastMammogramOhioHealthStart: 03-17-2025 End: 32-49-4764Xddhcpw encounter hitdamqxo24/17/2025 9:00 AM EDT Office Visit [facility]il [facility]ertility Specialist [address] [place] [address] Reagan Pascal MD [address] [place] [address] [facility] Cardiology SpecialistStart: 52-67-6012Rofgrxlle vaccinationInfluenza Vaccine (#1)[facility]HealthStart: 02-26-2025 Hemolytic complement CH50 [facility] Centertart: 02-17-2025 End: 44-10-9484Ipzxxzz encounter jiohqciul98/20/2025 9:20 AM EDT Office Visit [facility] [address] [place] [address] Roni Dahl MD [address] [place] [address] 6 mos - HTN, Hyperlipidemia, Hypothyroid, gerd, dysthymiaMERUTAH STATE HOSPITALComment on above:6 mos - HTN, Hyperlipidemia, Hypothyroid, gerd, dysthymiaStart: 11-26-2024 End: 35-91-7614Xvsarlw encounter cmscuouyb27/29/2025 9:30 AM EDT Office Visit [facility] [address] [place] [address] Lexy Canales DPM [address] [place] [address] ArrivedNOMS WWW PODIATRYComment on above:ArrivedStart: 11-17-2024 End: 10-97-7654Inmgllq encounter procedureFAIRFIELD MEDICAL [facility] Part of [place] HospitalComment on above:1 year f/u, [place] prior-(make sure we have results, patient will be going out of town)1 year f/u for blood in the urine, no testing prior per ElveryStart: 09-15-2024 End: 59-64-3172Pwdveca encounter qpraegqsd64/18/2025 2:15 PM EDT Office Visit [facility] [address] [place] [address] Lexy Canales DPM [address] [place] [address] [facility]ODIATRYStart: 08-31-2024 End: 11-73-3613Xercvof encounter yoctybsqw28/03/2025 9:00 AM EST Office Visit [facility] Soil Fertility Specialist [address] [place] [address] Reagan Pascal MD [address] [place] [address] 1 year follow up labs ekg cxrMercy Cardiology SpecialistComment on above:1 year follow up labs ekg cxrStart: 66-70-8839Jcizq panelLipidsBON AVITA [facility] HOSPITALStart: 08-17-2024 End: 38-56-2991Zltepjb encounter mwwdjedpr63/17/2025 2:00 PM EST Office Visit [facility] [address] [place] [address] Lexy Canales DPM [address] [place] [address] ArrivedNOMS WWW PODIATRYComment on above:ArrivedStart: 08-13-2024 End: 70-53-7387Qkgcjgs encounter pixrqmoir80/13/2025 10:00 AM EST Office Visit [facility] [address] [place] [address] Roni Dahl MD [address] [place] [address] AWV - 6 mos - HTN, Hyperlipidemia, Hypothyroid, gerd, afibMERCY PRIMARY CARE WILLARDComment on above:AWV - 6 mos - HTN, Hyperlipidemia, Hypothyroid, gerd, afibStart: 45-42-2475Vwgkrjgzx complement CH50 [facility] Centertart: 08-06-2024 Depression MonitoringDepression MonitoringBON AVITA HEALTH SYSTEM ONTARIO HOSPITALStart: 05-07-2024 End: 90-17-7710Abqlxkr encounter axhncukyd48/07/2024 9:30 AM EST Office Visit [facility] Phys[facility] [address] [place] [address] Sj Hutchinson Jr., DO [address] [place] [address] [facility] ENT PhysiciansStart: 93-42-4061Aualww Wellness Visit (Medicare)Annual Wellness Visit (Medicare)[facility]OMERYStart: 87-04-5089Htcclggbqx MonitoringDepression MonitoringBON [facility] Start: 11-06-2024Medicare Wellness VisitMedicare Wellness VisitOhioHealthStart: 03-23-2024 End: 01-28-9085Lalcdug encounter irltoyocv40/23/2024 11:00 AM EDT Office Visit [facility] UROLOG[facility] Part [address] [place] [address] John Paul Mayfield, CERTIFIED ORTHOTIST PRACTICE MANAGER - BINDING PRINTER [address] [place] [address] Dr Romo [address] [place] [address] 1 year f/u, [place] [facility] HospitalComment on above:1 year f/u, [place] priorStart: 03-20-2024 End: 71-72-3838Bpjedpa encounter gtcjeawnd42/20/2024 11:00 AM EDT Office Visit [facility] UR[facility] Part [address] [place] [address] John Paul Mayfield, CERTIFIED ORTHOTIST PRACTICE MANAGER - BINDING PRINTER [address] [place] [address] Dr [address] [place] [address] 1 year f/u, [place] prior-(make sure we have results, patient will be going out of town)[facility] Part of [place] HospitalComment on above:1 year f/u, [place] prior-(make sure we have results, patient will be going out of town) Start: 03-18-2024 End: 88-10-3583Xqbvutu encounter ouyeaxmji45/18/2024 1:00 PM EDT Appointment [facility] Ultrasound [address] [place] [address] epic/ sched w/ Anastasiya in officeLake County [facility] Comment on above:epic/ sched w/ Anastasiya in officeStart: 58-63-6059HZVSL-19 Vaccine ( season)COVID-19 Vaccine ( season)Bon [facility] HospitalStart: 53-18-5775UGMHL-19 Vaccine ( season)COVID-19 Vaccine ( season)Bon [facility] HospitalStart: 02-11-2024 End: 64-76-7448Vujbora encounter wmajijubq39/13/2024 8:00 AM EDT Office Visit [facility] [address] [place] [phone] Roni Dahl MD [address] [place] [address] Appt Reason: Routine Existing Condition Follow UpAMERICAN HOSPITAL ASSOCIATIONComment on above:Appt Reason: Routine Existing Condition Follow UpStart: 85-94-2888Xjlf energy X-ray absorptiometryXR dexa axial skeletonRegency Hospital Cleveland Easttart: 45-20-0702MNJ Skeletal system.axial Views for bone densityVeterans Health Administration Start: 12-49-9849Hpwamrv vaccinationTetanus: Every 10yrsOhioHealthStart: 23-49-8281Slmfljfcx complement CH50 levelRegency Hospital Cleveland Easttart: 12-12-2023 End: 39-60-8916Ljhqqcf encounter hdelezhrs15/13/2024 10:00 AM EDT Office Visit [facility] Soil Fertility Specialist [address] [place] [address] Reagan Pascal MD [address] [place] [address] 3 wk f/u ED tachycardia & event monitor [facility] Cardiology SpecialistComment on above:3 wk f/u ED tachycardia & event monitorStart: 11-14-2023 End: 10-58-0308Lqpmkpd encounter pbzqjjufb82/16/2024 10:45 AM EDT Procedure visit [facility] Urology [address] [facility] [address] [place] [address] Glory Peña PAValentina [address] [place] [address] urogram [facility] UrologyComment on above:cysto after CT urogramStart: 04-97-0586Dliatwjsny MonitoringDepression MonitoringLEWISGALE HOSPITAL [facility] Start: 05-43-8325Owqoxryze complement CH50 [facility] Centertart: 09-02-2023 End: 42-23-3796Hvxpish encounter procedureMercy Cardiology SpecialistComment on above:1 yr f/u lab/ekg/Start: 82-59-6320Xqufg panelLipidsLEWISGALE HOSPITAL MONTGOMERYStart: 08-06-2023 End: 69-82-8005Xurugoc encounter krwojlrzg11/06/2024 8:40 AM EST Office Visit [facility] [address] [place] [address] Roni Dahl MD [address] [place] [address] 3 mos - Hyperlipidemia, depression, Hypothyroid, gerd, insomnia, sleep apnea, arthritisMERCY THE [facility] Comment on above:3 mos - Hyperlipidemia, depression, Hypothyroid, gerd, insomnia, sleep apnea, arthritisStart: 38-00-5091Vbglzukft complement CH50 level [facility] Easttart: 05-09-2023 End: 25-14-1160Wtkguwu encounter easudbifh73/09/2023 11:30 AM EST Appointment [facility] Mamm[facility] [address] [facility] [place], [place] SELF REF/PTMercUniversity Hospitals [facility]Point [facility] Center MammographyComment on above:SELF REF/PTStart: 05-06-2023 End: 14-67-8898Fbiplao encounter procedureMER PRIMARY CARE WILLARDComment on above:Return in about 6 months (around 05/03/2023) for Hyperlipidemia, Hypothyroid, depression, gerd, arthritis and MEDICARE wellnessStart: 05-04-2023 Annual Wellness Visit (AWV)Annual Wellness Visit (AWV)[facility] AgriviVAN [facility] Start: 08-57-8665Cwpsujnpvl MonitoringDepression MonitoringLEWISGALE HOSPITAL MONTGOMERYStart: 01-82-6431Bzvawkl and physical examination, annual for health maintenanceWellness VisitOhioHealthStart: 03-22-2023 End: 79-54-9142Ipekhbb encounter procedureFAIRFIELD [facility] Part of [facility] HospitalComment on above:3 month f/u, [place] resultsStart: 03-20-2023 End: 17-78-9275Uquaneq encounter ytksrtppy51/20/2023 [facility] [place] HospitalStart: 14-81-8460TbbcxlxclRegency Hospital Cleveland Easttart: 03-13-2023 End: 20-35-5447Mxodvhp encounter eqwcfewmq69/13/2023 Appointment Radiology Yanelis Guzman MD [address], [address] [place] [address] [facility] UltrasoundStart: 14-53-1989ZPCYC-19 Vaccine ( season)COVID-19 Vaccine ( season)[facility]HealthStart: 44-09-5381Obcnlcelv vaccinationSequential Influenza Vaccine (#1)[facility]HealthStart: 66-72-4678Tvmzkumoc vaccinationFlu vaccine (#1)[facility]: 12-21-2022 End: 40-64-9106Lcfgvcb encounter kmimzcvwl95/23/2023 Office Visit [facility] UROLOG[facility] Part [place] [facility]ic[facility]art: 10-31-2022 End: 49-52-5657Hmwoybr encounter qdwrmehje94/03/2023 Office Visit Roni Rico MD [address] [place] [address] [facility] WILLARDStart: 29-23-0543KPXYQ-19 Vaccine (5 - Moderna series)COVID-19 Vaccine (5 - Moderna series)[facility]ITALStart: 09-03-2022 End: 62-67-2979Jdqarjm encounter procedureOhiohealth [facility] Cardiology SpecialistStart: 21-06-9892Iyttb panelParkview HealthStart: 50-00-9963Hyrtadb stimulating hormone measurementParkview HealthStart: 30-16-9200Tmfuzvdd identified in Urine by Culture [facility]art: 02-05-2253Icoyjudjl complement CH50 levelRegency Hospital Cleveland Easttart: 07-31-2022 End: 59-12-1530Urvnjbg encounter /31/2023 Appointment Physical Therapy Maria R Malhotra PTMTHZ Physical TherapyStart: 70-82-8954XdtrdhpjxRegency Hospital Cleveland Easttart: 81-44-9827GrxyahzusRegency Hospital Cleveland Easttart: 88-43-8368Xuspmnhjenykyz destruction of peripheral nerveDH Nerve Radio Frequency (Left)[facility]art: 17-91-9226IaubmxtfpRegency Hospital Cleveland Easttart: 35-34-8047Dtknxw Wellness Visit (AWV)Annual Wellness Visit (AWV)Parkview HealthStart: 05-03-2022 End: 43-81-3579Qomiguv encounter cjvcmslui48/03/2022 Office Visit Roni Rico MD [address] [place] [address] [facility] WILLARDStart: 60-26-3934Mnnktisuhu MonitoringDepression MonitoringParkview HealthStart: 34-30-5758CkdnqqriyRegency Hospital Cleveland Easttart: 79-61-2836Bazdjevih vaccinationFlu vaccine (#1)[facility]: 10-31-2021 End: 98-38-3468Rnvamad encounter qlovfrqyi55/03/2022 Appointment Physical Therapy Fermín Chen, PT [address] [place] [address] [facility] Physical TherapyStart: 02-22-7158ICHLA-19 Vaccine (4 - Booster for Moderna series)COVID-19 Vaccine (4 - Booster for Moderna series)[facility]: 10-11-2021 End: 64-12-0424Yvnfkbb encounter awvwrkvti61/13/2022 Appointment Physical Therapy Fermín Chen, PT [address] [place] [address] [facility] Physical TherapyStart: 10-09-2021 End: 82-45-0847Uznrceh encounter eraarxzmc16/11/2022 Appointment Physical Therapy Velasquez Martel PTAMWHZ Physical TherapyStart: 10-04-2021 End: 45-97-3697Qwmqfhn encounter ryribofnh85/06/2022 Appointment Physical Therapy Fermín Chen, PT [address] [place] [address] [facility] Physical TherapyStart: 10-02-2021 End: 23-18-8731Sstxrbt encounter ipawyuxqi43/04/2022 Appointment Physical Therapy Velasquez Martel PTAMWHZ Physical TherapyStart: 09-28-2021 End: 46-79-1510Savccdh encounter roqiugckr89/31/2022 Appointment Physical Therapy Velasquez Martel PTAMWHZ Physical TherapyStart: 09-25-2021 End: 20-63-6224Fnekvsd encounter gfimhrtgm15/28/2022 Appointment Physical Therapy Nancy Nunez Physical TherapyStart: 09-21-2021 End: 46-08-5254Hqdncyi encounter kqavhfhvm50/24/2022 Appointment Physical Therapy Velasquez Martel PTAMWHZ Physical TherapyStart: 09-19-2021 End: 28-60-6484Sxxkybw encounter /22/2022 Appointment Physical Therapy Fermín Chen, PT [address] [place] [address] [facility] Physical TherapyStart: 09-15-2021 End: 20-96-6278Frgklkg encounter yryrjvnmx13/18/2022 Appointment Physical Therapy Velasquez Martel PTAMWHZ Physical TherapyStart: 09-13-2021 End: 28-66-5863Ksheqgp encounter /16/2022 Appointment Physical Therapy Velasquez Martel PTAMWHZ Physical TherapyStart: 09-08-2021 End: 35-02-3397Itzuonp encounter xyztdrwkg90/11/2022 Appointment Physical Therapy Fermín Chen, PT [address] [place] [address] [facility] Physical TherapyStart: 62-67-4388Fgzwvoyuar hospital visit by kxwdatfya48/10/2022 Hospital Encounter Physical Therapy Nancy Nunez SMMILDRED Physical TherapyStart: 09-05-2021 End: 47-51-9994Turliuw encounter vdbngnbsa81/08/2022 Appointment Physical Therapy Velasquez Martel PTAMWHZ Physical TherapyStart: 09-04-2021 End: 47-88-9957Gbkojzj encounter procedureMercy Cardiology SpecialistStart: 08-31-2021 End: 26-02-7592Thdpcqh encounter ukpcyvoal50/03/2022 Appointment Physical Therapy Velasquez Martel PTAMWHZ Physical TherapyStart: 90-61-3021Oktuhpxsyg hospital visit by bkeqxhziv97/17/2022 Hospital Encounter Physical Therapy Fermín Chen, PT [address] [place] [address] [facility] Physical TherapyStart: 60-70-5020Miihp panelLipid screen Parkview HealthStart: 83-84-4253Nejcuof stimulating hormone measurementTSH testing [facility] Daytonart: 44-01-3609EUB QnTSH testingParkview Health Work Phone: start: 08-02-2021 End: 13-97-3244Ygxgsog encounter procedurePOMERENE HOSPITAL C[facility] WILLARDStart: 06-29-2021 End: 41-93-6667Ybdjfig encounter dzfotjhtd63/30/2021 Appointment Physical Therapy Jamia Chenissa, PT [address] [place] [address] MWH[facility] Physical TherapyStart: 06-26-2021 End: 72-56-9993Tubxzkq encounter ogioqzzjx45/27/2021 Appointment Physical Therapy Jamia Chenissa, PT [address] [place] [address] M[facility] Physical TherapyStart: 06-22-2021 End: 16-55-4226Bptxpnf encounter qknewrxtg90/23/2021 Appointment Physical Therapy Jamia Chenissa, PT [address] [place] [address] [facility] Physical TherapyStart: 06-20-2021 End: 92-84-7302Ofelpmd encounter wtjhruxhg44/21/2021 Appointment Physical Therapy Jamia Chenissa, PT [address] [place] [address] [facility] Physical TherapyStart: 06-14-2021 End: 73-34-6434Ntlwjpo encounter /15/2021 Appointment Physical Therapy Jamia Chenissa, PT [address] [place] [address] [facility] Physical TherapyStart: 05-17-2021 End: 99-85-2722Ifqycbm encounter ccyzsiips95/17/2021 Appointment Physical Therapy Velasquez Martel PTAMWHZ Physical TherapyStart: 05-15-2021 End: 47-76-3617Fwexttu encounter hriwrdsqm20/15/2021 Appointment Physical Therapy Velasquez Martel PTAMWHZ Physical TherapyStart: 05-10-2021 End: 50-29-7920Kigywpj encounter saannuiau32/10/2021 Appointment Physical Therapy Velasquez Martel PTAMWHZ Physical TherapyStart: 05-05-2021 End: 70-62-0146Vfxreve encounter qmnsggyky89/05/2021 Appointment Physical Therapy Fermín Chen, PT [address] [place] [address] [phone] [facility] Physical TherapyStart: 05-02-2021 End: 02-63-9041Xaikvsr encounter juzzejvys82/02/2021 Office Visit Family Roni Villegas MD [address] [place] [address] [phone] [facility]Start: 05-02-2021 End: 14-84-1443Iafxwgk encounter xkekcysfn28/02/2021 Appointment Physical Therapy Rashmi Garcia DMWHZ Physical TherapyStart: 19-45-8971Wqowxd Wellness Visit (AWV)Annual Wellness Visit (AWV)[facility]: 78-41-0403HKS QnTSH testingTriHealth Bethesda [facility] Hospital: 48-22-6180Bmiswloqa vaccinationFlu vaccine (#1)[facility] Work Phone: start: 16-09-2881YZFIF-19 Vaccine (3 - Booster for Moderna series)COVID-19 Vaccine (3 - Booster for Moderna series)[facility] Start: 01-30-2021 End: 68-14-4765Ixqiea Visit01/30/2021 Office Visit Roni Rico MD [address] [place] [address] [facility] WILL[facility]Start: 73-92-5080Jwxltihre for malignant neoplasm of colonColon cancer screen colonoscopyWood County Hospitalart: 09-06-2020 End: 46-80-0155Thocou Visit09/06/2020 Office Visit Cardiology Reagan Pascal MD [address] [place] [address] [phone] [facility] Cardiology SpecialistStart: 07-28-2020 End: 98-13-0159Oqqznf VisitREGENCY HOS[facility]ITAL [facility] WILLARDStart: 07-11-2020 End: 73-11-5991Ouezfq Visit07/11/2020 Office Visit Cardiology Reagan Pascal MD [address] [place] [address] [phone] [facility] Cardiology SpecialistStart: 48-04-9638Rypfg panelLipid screenWood County Hospitalart: 74-03-5068Eilbl screenLipid screenOhiohealth Grove City [facility] Hospital [employer] Work Phone: start: 48-92-3946WEN QnTSH [place] Start: 83-00-1290QTI testingTSH testingOhiohealth Grove City Methodist Hospital [employer] Work Phone: start: 09-41-2947Wauyyhzw Vaccine (3 of 3)Shingles Vaccine (3 of 3)[facility]: 16-50-7952Gxqrxk Wellness Visit (AWV) Annual Wellness Visit (AWV)[facility]: 23-00-1483Dqhnqf Wellness Visit (AWV)Annual Wellness Visit (AWV)[facility]: 03-13-2020 Breast cancer screenBreast cancer screenTriHealth Bethesda Butler Hospital: 03-13-2020 Screening for malignant neoplasm of breastBreast cancer screenTriHealth [facility]hes[facility]: 01-25-2020 End: 69-32-8955Hnqcvh Visit01/25/2020 Office Visit Family Medicine Roni Dahl MD [address] [place] [address] [phone] [facility] WILLARDStart: 65-95-0360Alfxakxaujs Syncytial Virus Immunization: Risk, 60-74 Risk, or 75+ (1 - 1-dose 75+ series) Respiratory Syncytial Virus Immunization: Risk, 60-74 Risk, or 75+ (1 - 1-dose 75+ series)[facility]HealthStart: 07-30-2019 End: 61-34-8042Ebbcvl Visit07/30/2019 Office Visit Family Medicine Roni Dahl MD [address] [place] [address] [phone] [facility] WILLARDStart: 07-27-2019 End: 32-36-8106Agfopeh encounter hkgurebze64/27/2020 Office Visit Family Medicine Roni Dahl MD [address] [place] [address] [phone] [facility]Start: 07-13-2019 End: 40-52-2944Wnezld Visit07/13/2019 Office Visit Cardiology Reagan Pascal MD [address] [place], [place] [address] [facility] Cardiology SpecialistStart: 79-82-0104Rkxuq screenLipid screenTriHealth [facility]: 46-31-6500RKQ testingTSH testingTriHealth [facility]: 12-31-2013 DTaP/Tdap/Td vaccine (1 - Tdap)DTaP/Tdap/Td vaccine (1 - Tdap)[facility]: 57-73-5016Qjwngvnd Vaccine (2 of 3)Shingles Vaccine (2 of 3)[facility]: 75-23-2280Tyyc risk assessmentFalls Risk AssessmentOhUniversity Hospitals Cleveland Medical CenterStbowling green: 26-05-3834Nipyszrxfbp Syncytial Virus (RSV) or age 60 yrs+ (1 - 1-dose 60+ series)Respiratory Syncytial Virus (RSV) or age 60 yrs+ (1 - 1-dose 60+ series)[facility]ON MAY [facility]: 96-29-5772Lrfhafwvz for malignant neoplasm of breastMammogramOhioHealthStart: 90-73-9114DNcS/Tdap/Td vaccine (1 - Tdap)DTaP/Tdap/Td vaccine (1 - Tdap)[facility]: 1963 Hepatitis C screeningOhioHealth [facility]: 79-14-8229YXFMZ-19 Vaccine (1 of 2) COVID-19 Vaccine (1 of 2)[facility]: 01-55-3303Qduhyakqtw screening using PHQ-9 (Patient Health Questionnaire 9) scoreOhioHorton Medical Centerart: 76-80-9241STlE/Tdap/Td vaccine (1 - Tdap)DTaP/Tdap/Td vaccine (1 - Tdap)[facility]: 06-10-3582Tcybgzmst C screenHepatitis C screenTriHealth [facility]hes[facility]: 23-10-3271Wwbmlxrop C screeningHepatitis C [facility] Start: 69-78-7858Rqyuhmnnk for osteoporosisDexa ScanOhioHealthComplement C3 [Mass/volume] in Serum or [facility] HospitalComplement C3 [Mass/volume] in Serum or [facility] HospitalComplement C3 [Mass/volume] in Serum or [facility] HospitalComplement C3 [Mass/volume] in Serum or [facility] HospitalComplement C3 [Mass/volume] in Serum or [facility] HospitalComplement C3 [Mass/volume] in Serum or [facility] HospitalComplement C4 [Mass/volume] in Serum or [facility] HospitalComplement C4 [Mass/volume] in Serum or [facility] HospitalComplement C4 [Mass/volume] in Serum or [facility] HospitalComplement C4 [Mass/volume] in Serum or [facility] HospitalComplement C4 [Mass/volume] in Serum or [facility] HospitalComplement C4 [Mass/volume] in Serum or [facility] End: 83-15-6791JHKLJ-19COVID-19 Lab Routine Once for 1 Occurrences starting 06/29/2020 until 06/29/2020[place]:Once for 1 Occurrences starting 06/29/2020 until 06/29/20200028SLUZQ-73SWFLE-92 Lab Routine 06/29/2020 11:25 AM [place] End: 30-90-5631UGGFH-19Martin Memorial HospitalPertino Phone: comment on above:1 Occurrences starting 06/12/2021 until 06/12/2021 End: 46-26-6485Wgkhp-19 AmbulatoryCovid-19 Ambulatory Lab Routine Viral illness Exposure to COVID-19 virus 1 Occurrences starting 03/31/2020 until 03/31/2020 [employer], [place]:1 Occurrences starting 03/31/2020 until 03/31/2020Covid-19 AmbulatoryCovid-19 Ambulatory Lab Routine Viral illness Exposure to COVID-19 virus 03/31/2020 1:26 PM EDBeanstalk Tax, [place] Head WO ContrastCT Head WO Contrast Imaging STAT 11/25/2022 10:53 AM EDKlypper Phone: cT SINUS WO CONTRASTCT SINUS WO CONTRAST Imaging STAT 11/25/2022 10:55 AM EDCarbonCure [employer] Work Phone: End: 49-64-2313Zygesoq, GenitalMartin Memorial [email or web address].com Work Phone: comhuca on above:1 Occurrences starting 10/26/2021 until 10/26/2021 End: 36-87-7061Vykcqtk, UrineCulture, Urine Microbiology Routine Once for 1 Occurrences starting 11/18/2020 until 11/18/2020[facility] HospitalPertino Phone: comxesp on above:Once for 1 Occurrences starting 11/18/2020 until 1Culture, UrineCulture, Urine Microbiology Routine 11/18/2020 8:31 AM EDDang Le Phone: End: 49-73-8606Msvvvpa, UrineMerEventBrowsr.com Work Phone: compaxn on above:Once for 1 Occurrences starting 10/14/2021 until 10/14/2021 End: 04-78-3886Iecsmzz, UrineBon TeeBeeDeeComment on above:1 Occurrences starting 08/27/2024 until 08/27/2024 End: 45-00-7192Izfokujhzcdvg procedure, preparation of smear, genital sourcePAP SMEAR Lab Routine Women's annual routine gynecological examination 1 Occurrences starting 10/26/2021 until 10/26/2021[employer] Phone: combfri on above:1 Occurrences starting 10/26/2021 until 10/26/2021 End: 75-25-0045EVY Breast - bilateral screeningDignity Health [facility] TeeBeeDeeCombronson lakeview hospital on above:1 Occurrences starting 05/08/2024 until 05/08/2024EKG 12 LeadO[employer]on Space Phone: ekg 12 LeadEKG 12 Lead ECG Routine Essential hypertension Palpitations Hypothyroidism, unspecified type Hyperlipidemia, unspecified hyperlipidemia type Vitamin D deficiency disease 08/29/2021 7:22 AM [employer] Phone: ekg 12 LeadEKG 12 Lead ECG STAT 10/23/2023 9:56 AM EDT BON FindersfeeEKG 12 LeadEKG 12 Lead ECG STAT 10/23/2023 12:15 PM EDT BON FindersfeeEKG 12 LeadEKG 12 Lead ECG Routine 11/14/2023 6:42 PM EDTBON FindersfeeEKG 12 LeadEKG 12 Lead ECG Routine Essential hypertension Palpitations Hyperlipidemia, unspecified hyperlipidemia type Hypothyroidism, unspecified type Vitamin D deficiency disease 08/27/2024 10:48 AM [employer] End: 70-19-8239Vggdnltevtesjoxy Panel, MolecularGastrointestinal Panel, Molecular Microbiology Routine One Time for 1 Occurrences starting 11/27/2020 until 11/27/2020[employer] Phone: comxcwx on above:One Time for 1 Occurrences starting 11/27/2020 until 11/27/2020Gastrointestinal Panel, MolecularGastrointestinal Panel, Molecular Microbiology STAT 11/27/2020 11:00 AM [employer] Phone: End: 40-73-2150QYB DIGITAL SCREEN W OR WO CAD BILATERALMAM DIGITAL SCREEN W OR WO CAD BILATERAL Imaging Routine Visit for screening mammogram 1 Occurrences starting 11/09/2019 until 11/09/2019[facility] HospitalEventBrowsr.comCHESTNUTR[place], [place] on above:1 Occurrences starting 11/09/2019 until 11/09/2019MAM DIGITAL SCREEN W OR WO CAD BILATERALMAM DIGITAL SCREEN W OR WO CAD BILATERAL Imaging Routine Visit for screening mammogram 11/09/2019 11:[address] [facility]DELON[facility] End: 90-56-8915ZAR WU DIGITAL SCREEN BILATERALMAM WU DIGITAL SCREEN BILATERAL Imaging Routine Screening mammogram, encounter for 1 Occurrences s tarting 01/20/2021 until 01/20/2021Martin [facility] [email or web address].com Work Phone: comment on above:1 Occurrences starting 01/20/2021 until 01/20/2021MAM WU DIGITAL SCREEN BILATERALMAM WU DIGITAL SCREEN BILATERAL Imaging Routine Screening mammogram, encounter for 01/20/2021 8:26 AM [employer] Work Phone: patient EducationWvumedicine [facility] Work Phone: Patient referralWvumedicine Barnesville [facility]tr Work Phone: End: 92-26-6165PV Chest 2 ViewsBon [facility]rbana HospitalComment on above:1 Occurrences starting 08/27/2024 until 08/27/2024XR CHEST STANDARD (2 VW)XR CHEST STANDARD (2 VW) Imaging STAT 05/30/2019 6:19 AM NexessMartin Memorial [email or web address].comMERCY HOSPITAL ST. JOHN'SDELONTE Immunizations Immunization DateImmunizationNotesCare XfzrzsuxSdzkwlcf42-90-7246Fpppzjgq trivalent influenza vaccine, adjuvanted, preservative freeM RoomBon [facility]rbana HospitalNqmdhc98-77-6274iqynepiao virus vaccine, unspecified formulationDavid Catarino [employer] Work Phone: [phone]juodq74-58-3126Jkfnedoym, FLUAD, (age 65 y+), Adjuvanted, 0.5mLVeselin Sigifredo STEINER Work Phone: bon [facility] HOSPITALCMPBVN70-93-3153VDKJ-UhG-7 (COVID- 19) mRNAMUL.ORD!m25301BqohDonna Spencer 544-1956Dpnehe-NnmvgThe [facility] Hospital Cphfyg83-91-4185 influenza virus vaccine, unspecified formulationDonna Spencer [phone]-NnvoeFirelands Regional Medical Center [facility] Campus Digestive HealthComment on above:Result Comment: 2022-06-26: VIS DATE: 624718-76-4952Fwbvxccjx, FLUAD, (age 65 y+), Adjuvanted, 0.5mLDawn Roscoe [facility] [employer] Work Phone: [phone]FVBV-45, Moderna, Booster, PF, 50mcg/0.25ml formerly [facility] CenterEventBrowsr.com Work Phone: [phone]sizgx, Quadv, adjuvanted, 65 yrs +, IM, PF (Fluad)Rashmi JimenezMemorial HospitalCbmqla27-34-0768NJQXB-23, Moderna, Primary or Immunocompromised, PF, 100mcg/0.5mLMwh 1Mthe bellevue hospital [employer] Work Phone: [phone]XGSP-19, Moderna, Primary or Immunocompromised, PF, 100mcg/0.5mLMwh 1Mdiley ridge medical centerFreta.lá Work Phone: [phone]cqnoc vaccine recombinantKosair Children's Hospital50 Cubes [facility], DO13-44-4886mockjqmhl virus vaccine, unspecified formulationDakunal Malhotra [facility] [employer] Work Phone: [phone]bu, High-dose, Quadv, 65 yrs +, IM (Fluzone)[facility]ly [facility] IS PharmaMERCY HOS[facility]ITAL ST[facility]'S, CJ13-30-7403tlblshxzb, injectable, quadrivalent, preservative freeChristopher [facility] HospitalImhbhq00-09-3426xxvrmz vaccine recombinantChristopher [facility], UB78-85-8159pktcpasua virus vaccine, unspecified formulationQuintinshannon Spencer [phone]-HoquyFirelands Regional Medical Center South Campus Digestive HealthComment on above:Result Comment: 2022-06-26: VIS DATE: 855406-68-6173yhyxecimv, injectable, quadrivalent, preservative freeChristopher eVendor CheckParkview Health- [place], [place] 99-93-9697ersfoqiai virus vaccine, unspecified formulationDonna Spencer [phone]-AypvfPaulding County HospitalComment on above:Result Comment: 2022-06-26: VIS DATE: 731898-58-8152nsoatiznh, injectable, quadrivalent, preservative freeCalais Regional Hospital, [place] 08-81-6874vzbcghozf virus vaccine, unspecified formulationMercy Hospital St. Louis11-14-2016influenza, high dose seasonal, preservative-freeMercy Hospital St. Louis09-01-2016pneumococcal conjugate vaccine, [address] Louis10-13-2015influenza virus vaccine, unspecified formulation Christopher [facility] HospitalOvepqt03-81-6710pwcyzxjfw virus vaccine, unspecified formulationMercy Hospital St. Louis10-25-2014influenza, Chao Spencer [phone]-IapslPaulding County Hospital07-02-2014 Td, unspecified formulationMercy Hospital St. Louis07-02-2014tetanus and diphtheria toxoids, adsorbed, preservative free, for adult use (2 Lf of tetanus toxoid and 2 Lf of diphtheria toxoid)Donna Spencer [phone]-RswdwPaulding County Hospital07-02-2014 tetanus and diphtheria toxoids, adsorbed, preservative free, for adult use (5 Lf of tetanus toxoid and 2 Lf of diphtheria toxoid)Monster Mei MD Work Phone: bon [facility] HOSPITALPZGJMW59-01-2567bpmwkrrme virus vaccine, unspecified formulationMercy Hospital St. Louis01-17-2014 influenza, Chao Spencer [phone]-BvgnyPaulding County Hospital04-25-2012 zoster vaccine, liveChristopMercy Health St. [facility], HT96-90-0559oanwklizxmjf polysaccharide vaccine, 23 valentChSaint Elizabeth's Medical Center Health- [place], [place] Payers DatePayer CategoryPayerPolicy [id number]-mci [id number] Care HMO (unspecified) [employer] [id number]wel Health Insurance1.2.840.700448.1.13.385.2.7.3.517176.03578-42-7836Yhpnzvs Health [id number] 1.2.840.579984.1.13.239.2.7.3.783692.04737-22-7067Npfyhzd Health [id number] 1.2.840.774832.1.13.239.2.7.3.020297. MedicareMEDICARE MEDICARE PART A AND B xxxxxxxxxxx 2014-Present [phone] [address], [place]fphyuytdxkk 1.2.840.667391.1.13.239.2.7.3.318451.46243-58-8312XsianfyUOZNPXHSEXQE ANDORRAN REFUGIO ANDORRAN xxxxxxxxxx 2014-Present [phone] [address] [place] [address]xnblnqimdt 1.2.840.907379.1.13.239.2.7.3.462416.315 [id number] 1.2.840.642550.1.13.239.2.7.3.768965. Medicare1.2.840.871679.1.13.385.2.7.3.579574.315 [id number] 1.2.840.017215.1.13.239.2.7.3.454[id number] 2.16840.1.633285.3.57[id number] 2.840.1.020448.3.57[id number] 2.840.1.467670.3.57[id number] 2.840.1.509749.3.57[id number] 2.840.1.994840.3.579.2.29[id number] 2.840.1.774181.3.57[id number] 2.840.1.945432.3.57[id number] 2.840.1.182704.3.57[id number] 2.840.1.864270.3.57[id number] 2.840.1.775914.3.57[id number] 2.840.1.339291.3.579.[id number] 2.16.840.1.768390.3.579.[id number] 2..840.1.593922.3.57[id number] 2.16.840.1.384101.3.57[id number] 2.840.1.217156.3.57[id number] 2.840.1.077090.3.579.[id number] 2.840.1.005497.3.579.2.10669-77-6032Isweuep04378768 2.840.1.896342.3.579.2.76018-42-1572Vnihslw1991 2.840.1.220372.3.579.2.79829-89-6783Utrwnsf8373924 2.840.1.027933.3.579.2.031671-34-8347Kohhrbm4802938 2.840.1.002995.3.579.2.937987-28-6129Rltcvne7898541 2.840.1.746748.3.579.2.153826-28-9575Lnahtwr71024123 2..840.1.672075.3.579.2.98495-48-0110Bukiayf594429479 2.840.1.425366.3.579.2.78202-54-9587Wczytwf583503548 2.16840.1.374551.3.579.2.96987-55-4696Dxrqakz241894753 2.16840.1.325577.3.579.2.12621-65-9082Mueyvsl264694638 2.0.1.148152.3.579.2.27172-49-8972Dajjrdb823286369 2..840.1.027344.3.579.2.85803-86-4144Puvwgxq781498576 2.0.1.952206.3.579.2.10429-39-1546Uwiwtks530660830 2.0.1.036960.3.579.2.55301-00-5527Acnzvno993407736 2..1.289724.3.579.2.74487-04-4455Gfstnel876469001 2..1.624619.3.579.2.94392-39-5401Zydohnt482318332 2.0.1.206475.3.579.2.55206-54-6191Lmqyiuw964182132 2.0.1.641603.3.579.2.196Medicare supplemental policy (as second payer)[facility] [id number] Social History DateTypeDetailFacilityStart: 05-30-2019 End: 73-99-4684Rofhaqn smoking status NHISNever smokerParkview HealthStart: 05-30-2019 End: 24-08-2285Uzpcuuw intakeCurrent non-drinker of alcohol (finding)[facility]: 43-05-4055Qld Assigned At BirthNot on fileTriHealth Bethesda [facility] Hospital: 03-31-2020 End: 78-78-9643Ktlminl use and exposureNever usedFort Worth, KYExposure to SARS-CoV-2 (event)YesTriHealth [facility]: 10-04-2021 End: 76-05-1986Gvfeipot to SARS-CoV-2 (event)Not [facility]: [facility]2020 End: 07-16-7946Ciqgjrb SDOH Uuemhuqgd2Lnqmy [employer] Work Phone: start: 11-22-2020 End: 34-17-8259Fxndmjq SDOH Food Ektjo9Zlabp [employer] Work Phone: start: 31-79-9373Qpm Assigned At BirthFemalMedina Hospital Work Phone: Start: 04-14-2019 End: 33-23-1512Vkaarwp intakeNoHocking Valley Community Hospital smoking statusNever [facility] Start: 09-03-2022 End: 82-18-3897Jrwklpk SDOH Alcohol Fbfzxqxig5KXP [facility] [address] Work Phone: start: 49-11-3652Frwawue SDOH Alcohol Std Lszecq8HSGHOSPITAL CORPORATION OF AMERICA [address] Work Phone: start: 11-25-2022 End: 15-03-9179Yenfcjc of Social functionBOSTON MEDICAL CENTERB&W [employer] [facility] HEALTHHow often to you have a drink containing alcohol?Monthly or lessBON [employer] HEALTHHow often do you have 6 or more drinks on 1 occasion?NeverBON Findersfee (I/We) worried whether (my/our) food would run out before (I/we) got money to buy more.Never trueBON FindersfeeAt any time in the past 12 months, were you homeless or living in chcf [including now]?NoVIANNEY OLVERA AgriviAbraham HEALTHStart: 26-96-3781Gdxpso identityIdentifies as female gender (finding)VIANNEY ROSADODrexel Metals [facility] HOSPITALStart: 61-50-3931Hpatfl orientationHeterosexual (finding)VIANNEY OLVERA AgriviAbraham [facility]ITE HOSPITALStart: 05-02-2023 End: 00-69-1201Jmgywwl intakeEx-drinker (finding)[facility]Start: 08-10-2012 End: 11-48-4927OrqHdljxb (finding)[facility]: 02-03-2023 End: 58-23-8621Oaxaryfyr beverage intakeLifetime non-drinker (finding)[facility] HealthcareStart: 68-26-4247Zuddeph Commentcaffeine: 1-2 cups per day coffeeNOMS HealthcareNEGATED: Highlighted rowStart: NINFHistory of tobacco usePassive smokerVIANNEY Findersfee Medical Equipment Procedure CodeEquipment CodeEquipment Original TextEquipment IdentifierDates Surgical procedure, using tension free vaginal tape, for stress incontinence [id number]: 92-94-4458Takrfcfg procedure, using tension free vaginal tape, for stress [id number]: 35-75-9622Qvdtmauu procedure, using tension free vaginal tape, for stress incontinence [id number]: 02-54-5402Rlnnwbaa procedure, using tension free vaginal tape, for stress [id number]: 49-48-6522Ptclhrim procedure, using tension free vaginal tape, for stress incontinence [id number]: 39-94-9979Lkswkfvk procedure, using tension free vaginal tape, for stress [id number]: 74-64-1076Hwcowbpr procedure, using tension free vaginal tape, for stress incontinence [id number]: 76-44-3941Wewrmjfg procedure, using tension free vaginal tape, for stress bwpusphdkzpt43552995116687DYVPjhdc: 32-29-7865Xbkgrsqj procedure, using tension free vaginal tape, for stress incontinence 35473692705563QNPXuzun: 20-01-8824Imkmarrs procedure, using tension free vaginal tape, for stress vjqgmpbnqdov27831179974414KCJNkshw: 44-59-9680Jotuqlkp procedure, using tension free vaginal tape, for stress incontinence 23962881103763QNJVlmqf: 01-64-2684Nyjmlogk procedure, using tension free vaginal tape, for stress gxdsunwvtrfj07839099650152QCHMevzc: 46-31-9078Ucroemof procedure, using tension free vaginal tape, for stress incontinence 16199638891688QZVZltuv: 88-18-7992Jrnfxbjc procedure, using tension free vaginal tape, for stress acppathvlxis42720812979732OBFKnvza: 64-96-7703Etwukfxa procedure, using tension free vaginal tape, for stress incontinence 62983105463146IHLZysfl: 45-91-0165Yxqdvxxu procedure, using tension free vaginal tape, for stress vreuothuzpdy63702913760873XGJMcotn: 55-39-5134Ozwrqhqd procedure, using tension free vaginal tape, for stress incontinence 77211208664409QPHXmdtn: 72-42-5066Gzjsbblx procedure, using tension free vaginal tape, for stress qaoogwyuthjm36878076633299OBVNwwbd: 06-03-2019 {01}[id number]{17}[id number]{10}[id number] FDAStart: 07-28-2021 Goals DatePatient GoalDesired Activity/StatePersonal health goal Functional Status QldmWtjojjindgFyjxxjFsuxiwzg98-43-5137Gqilphdzyo StatusN/[facility]08-31-2023Functional StatusN/[facility] 83-66-1797Htmbbxxmsr StatusN/[facility] 06-31-9202Oyrzdzcmpv StatusN/[facility]01-10-2023Functional StatusN/[facility] Clinical Notes 11-18-2020 to 02-05-2025 Note Date & DzwuGsboIgyeirbc56-26-1238 NotePatient Name: [facility] Location: Mary Jane Rios [facility] [address] [facility] [address] Date Of : Date Of Visit: 1945 02/05/2025 MRN# Provider: [id number] Cinthya Barger PA-C Chief Complaint Patient presents with [...] been dictated. This dictation was generated using [employer] voice recognition software. Please excuse any grammatical [...] to display Orders Placed (more content not included)...[facility] Yecj60-84-2501 History of Present illness Narrative* Cinthya Barger PA-C - 02/05/2025 9:55 AM EDT Images from the original note were not included. Patient Name: [facility] Location: Mary Jane Rios [facility] [address] [facility] [address] Date Of : Date Of Visit: 1945 02/05/2025 MRN# Provider: [id number] Cinthya Barger PA-C Chief Complaint Patient presents with [...] I do suspect oralthrush again so clotrimazole anastasia sent to pharmacy This office note has been dictated. This dictation was generated using [employer] voice recognition software. Please excuse any grammatical [...] medications for this visit. documented in this rrqnsooptFfjxYwfndt71-57-9907 NotePatient Name: [facility] Location: [place] [address] [facility] [address] Date Of : Date Of Visit: 1945 01/15/2025 MRN# Provider: [id number] Christian Lucio PA-C Chief Complaint Patient presents [...] such instances, original wilner (more content not included)...[facility] Qwci51-46-7388 History of Present illness Narrative* Christian Lucio PA-C - 01/15/2025 9:54 AM EDT Images from the original note were not included. Patient Name: [facility] Location: Mary Jane [address]ra [address] Date Of : Date Of Visit: 1945 01/15/2025 MRN# Provider: [id number] Christian Lucio PA-C Chief Complaint Patient presents [...] watching her sugar levels. Will be given astronger steroid cream of betamethasone valerate 0.1% cream [...] primary care doctor to discuss being on Claritin-Dwith a history of A-fib. Subjective 79 y.o. [...] present for 2 weeks. Has been constant andhas no discharge or ulceration. Medical History Past Medical History: Diagnosis Date Disease of thyroid gland Hyperlipidemia History reviewed. No pertinent surgical history. Problem List[1] Social History Social History[2] Family History Family History Problem Relation Age of Onset Diabetes Mother Diabetes Sister Diabetes Son Objective Physical Exam BP 133/80 (BP Location: Left arm, Patient Position: Sitting, BP Cuff Size: X- large Adult) Pulse 72 Temp 97.3 F (36.3 [...] mg total) by mouth daily . fexofenadine (MELANIA) 180 MG tablet Take 1 (one) tablet (180 mg total) by mouth once . (Patient not taking: Reported on 01/15/2025 .) multivitamin with minerals tablet Take 1 (one) tablet by mouth daily . No current facility-administered medications for this visit. documented in this rqacfvdlmNfzzPntzzt54-49-2521 History of Present illness Narrative* Lexy Canales, BAUTISTA - 11/26/2024 9:30 AM EDT Mary Jane Rios is a 78 y.o. [...] with written and oral instr after pt ableto demonstrate , incr walking and balance training No restrictions- balance home rehab planned and reviewed documented in this encounterMetropolitan Saint Louis Psychiatric CenterIhgeatywzu07-30-1781 History of Present illness Narrative* Lexy Canales, DPM - 08/17/2024 2:00 PM EST Mary Jane Rios is a 78 y.o. female presents with chief complaint of Ankle Pain (Rgt Ankle pain) HPI: HPI Pt states she sprained rgt ankle 07/07/2024 but does not know how it happened. Saw Dr Bello Abebe[facility], [employer]ARTMENT [employer] in [place] for this and was given tall boot. [...] famotidine (PEPCID) 20 mg, Oral fexofenadine-pseudoephedrine ER (Melania-D) 60-120 MG 12 hr tablet 1 tablet, [...] nontender eversion. Minimal med ankle pain- no pointtenderness malleoli Left Foot/Ankle Inspection and Palpation Ecchymosis: [...] with written and oral instr after pt ableto demonstrate Comprgrip disp and ICE: cold therapy reviewed with multiple options and 10-20 min applications 2-3 times per day to affected area Limited activities until gait normal documented in this encounterMetropolitan Saint Louis Psychiatric CenterIbcozqtdgq15-53-3961 NotePROCEDURE: XR ANKLE RIGHT (MIN 3 VIEWS) HISTORY: ankle pain COMPARISON: None. FINDINGS: BONES:No acute fracture, dislocation, or joint space narrowing. Small corticated ossifications adjacent the tip of the medial and lateral malleolar line compatible with sequela of remote injury. Large degenerative calcaneal plantar spur. SOFT TISSUES:No visible soft tissue swelling. EFFUSION:None visible. OTHER: Negative. [facility] HOSPITALQFPJBXPAFSKK64-23-4896 NotePROCEDURE: XR ANKLE RIGHT (MIN 3 VIEWS) HISTORY: [...] Signed by: Bello Leal MD 07/10/24 [facility]Day[facility]12[facility] Hospital Discharge instructions* Discharge Instructions* Monster Mei MD - 06/24/2024 6:20 PM EST Vitamin D3 4000 units daily x 7 days Vitamin C 1000 mg Aspirin 81 mg daily * Attachments The following attachments cannot be sent through Care Everywhere. * COVID-19: High Risk for Serious Illness: General Info (Eritrean) documented in this encounterInova [facility]04-24-[facility]24 Hospital Discharge instructions* Discharge Instructions* Lexy Tapia MD - 10/23/2023 10:48 AM [...] and blood thinners. Close follow-up with your crm marketing specialist, otherwise follow-up with your PCP, return to ER if any symptoms change or further concerns. Stay well-hydrated with water or nonsugar sports drinks, Zofran ODT for any nausea as needed, I would advise not to use anything for the diarrhea at this time save soft toilet paper or baby wipes as needed. * Attachments The following attachments cannot be sent through Care Everywhere. * Serous Otitis Media (Eritrean) * Atrial Fibrillation (Eritrean) * Direct Oral Anticoagulants: Non-Vitamin K Antagonist (Eritrean) * Oral Rehydration (Eritrean) documented in this encounterLEWISGALE [facility]03-19-2024 Note [id number] [facility] 09-16-2023 Hospital Discharge instructions Patient Education 09/16/2023 14:59:47 Colonoscopy, Care After Surgery Salam (CUSTOM) Colonoscopy Care After Surgery Please read the instructions outlined below and refer to this sheet in the next few weeks. These discharge instructions provide you with general information on caring for yourself after you leave thespital. Your doctor may also give you specific [...] Heavy or fried foods are harder to digestand may make you feel nauseated (sick to [...] help the symptoms, procedures can be done toshrink or remove the hemorrhoids. What are the [...] Other exams or tests may also be done,such as: An exam that involves feeling the [...] do not help your symptoms. These procedures canhelp make the hemorrhoids smaller or remove them completely. Some of these procedures involve surgery, and others do not. Common procedures include: Rubber band ligation. Rubber bands are placed at the base of the hemorrhoids to cut off their bloodsupply. Sclerotherapy. Medicine is injected into the hemorrhoids [...] 3 times a day. General instructions Take jghy-zbi-unbbexk and prescription medicines only as told by [...] provider. Document Revised: 12/27/2021 Document Reviewed: 12/27/2021 [employer] Patient Education 2022 [employer]. 09/16/2023 14:59:47 Diverticulosis MAGR (CUSTOM) Diverticulosis Many [...] colon so that bowel contents can move througheasily. You should eat 20 to 35 grams [...] corn, and seeds. This has not been foundto be true. If you find that certain foods create cramping or bloating, avoid that food. Foods high in fiber include: Fresh fruits, fresh vegetables, legumes (beans), whole wheat bread, bran muffins or cereal, and nuts. See the table below for examples of high fiber foods. Remember, your goal is 20- 35 grams per day. Amount of fiber in different foods Food Serving Grams of fiber Fruits Apple (with skin) 1 medium apple 4.4 Banana 1 medium banana 3.1 Oranges 1 orange 3.1 Prunes 1 cup, pitted 12.4 Juices Apple, unsweetened, w/added ascorbic acid 1 cup 0.5 Grapefruit, white, canned, sweetened 1 cup 0.2 Grape, unsweetened, w/added ascorbic acid 1 cup 0.5 Daggett 1 cup 0.7 Vegetables Cooked Green beans 1 cup 4.0 Carrots 1/2 cup sliced 2.3 Peas 1 cup 8.8 Potato (baked, with skin) 1 medium potato 3.8 Raw [place] (with peel) 1 cucumber 1.5 Lettuce 1 [...] 8.7 Peanuts 1/2 cup 7.9 Chart from [facility] 2013. SEEK IMMEDIATE MEDICAL CARE [...] of Agriculture (USDA) National Nutrient Database at: http://www.nal.usda.gov/fnic/foodcomp/search/ Created using data from the USDA National Nutrient Database for Standard Reference. Available at http://www.nal.usda.gov/fnic/foodcomp/search/. Information adapted from: [facility] Patient Information 2009 [employer]. [facility] HospitalDate 2012 http://www.[employer]/contents/xzxfwstebqcd-rljmsqr-mvuhvm-the-basics 09/16/2023 14:59:47 Colon Polyps Colon Polyps Colon polyps are tissue growths inside the colon, which is part of the large intestine. They are one of the types of polyps that can grow in the body. A polyp may be a round bump or a mushroom-shapedgrowth. You could have one polyp or more [...] smoking cigarettes, drinking too much alcohol, not gettingenough exercise, and eating a diet that is [...] hard liquor (44 mL). General instructions Take tktl-brc-zwkmuyw and prescription medicines only as told by [...] provider. Document Revised: 10/05/2020 Document Reviewed: 10/05/2020 [employer] Patient Education 2022 [employer]. Follow Up Care 02/28/2023 13:25:17 With:Davion Olivares Address: [address], [address] [phone] Business (1) When: Unknown Comments:office will call for follow up [facility]03-18-2024 Evaluation + Plan noteExtracted from: Title:ANES Post GeneralAuthor:Danny Anesthesiology ()ObieDate: 09/16/23 Plan Transfer/Discharge: Patient exhibiting no signs of N/V. Hydration status is adequate. Extracted from:Title:Danny Basic PREAuthor:Danny Anesthesiashleigh ()ObieDate:09/16/23 Plan [place] Society of Anesthesiologists (ASA) physical status classification: Class III. Anesthetic Preoperative Plan: Anesthesia General.[facility] 05-02-2023 Instructions* Patient Instructions* Sj Hutchinson Jr., DO - 05/02/2023 9:49 AM [...] for repeat hearing testing. documented in this [id number] History of Present illness Narrative* Mary Sue, Oswaldo - 05/02/2023 9:19 AM EDT Images from the original note were not included. [facility] [address] [place] [address] Name: Mary Jane Rios : 1945 Date: [...] for bilateral ear infection. She returned to [facility] and was told that herear was still infected. She reports her last hearing test several years ago in [place]. 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 Htuchinson prior to testing. [employer] [...] CCC-A 05/02/23 9:19 AM documented in this [id number] History of Present illness Narrative* Sj Hutchinson Jr., - 05/02/2023 8:57 AM EDT Images from the original note were not included. Subjective Patient ID: Mary Jane Rios is a 77 y.o. female. 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 Patient states she has had left ear infections for most of her life. She was treated for ear infection with Augmentin in October. 3 weeks ago, woke up with extreme pain and was treated again for b/l ear infection. She returned to [facility] and was told thather ear was still infected. Last hearing test several years ago in [place]. 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 documented in this [id number] NoteChief Complaint: lbp and radicular pain right [...] current indications for surgical management Hydrotherapy Pain managementK[facility]09-28-2023 NoteChief Complaint: lbp and radicular [...] preoperative surgical planning Follow up after the CTKettering [facility]09-19-2023 Procedure noteFirMount Carmel Health System09-14-2023 Evaluation note* Encounter Date Diagnosis Assessment Notes Treatment Notes Treatment Clinical Notes Mar, Piriformis syndrome of right oswaldo e (ICD-10 - G57.01) [facility] Other 09-14-2023 Evaluation note* Encounter Date Diagnosis Assessment Notes Treatment Notes Treatment Clinical Notes Mar, Other spondylosis wi th radiculopathy, lumbar region (ICD-10 - M47.26) Mar,iriformis syndrome of right side (ICD-10 - G57.01)Patients primary complaint today is returning pain radiating into the lateral aspect of her right lower extremity, extending into her foot. Given neurosurgery recommendation as well as exam findings,I agree the patient may benefit from a right piriformis muscle injection which we will proceed with. Risks and benefits of procedure explained to patient; patient verbalizes understanding. In the meantime, we will switch her from Oxycodone-Acetaminophen 5-325 mg to Acetaminophen-Codiene 30- 300 mg twice daily as needed for severe pain. An OARRS report was processed and reviewed and shows no violations, as well as an opioid risk assessment being completed without concerns. She denies any significant opioid related side effects and appears to be compliant with this medication. The patient was cou nseled and educated regarding the risks and benefits of long-term opioid use. She understands the associated risks with this medication and agrees that it provides reasonable benefit in regard to herpain control and level of function. Anatomy of spine discussed in detail with patient in regard to patients condition. Mar,hronic pain (ICD-10 - G89.29) Mar,OtherAbove note written by John Merlos LPN, Bank Courier. Edited and approved by Dr. Yanelis Garcia MD. [facility] Other 09-07-2023 Evaluation note* Encounter Date Diagnosis Assessment Notes Treatment Notes Treatment Clinical Notes Mar, Spondylosis of lumba r region without myelopathy or radiculopathy (ICD-10 - [...] be replaced but there are areas of fbvd-nw-vvyx. My suspicion is that this is causing some nerve irritation I have no indication for doing back surgery I think injections in the spine will be of no benefit she is already had some and they have not helped. I think what needs to be injected or treated is the area around the hip. Mar,Right hip pain (ICD-10 - M25.551) [facility] Other 08-28-2023 Evaluation note* Encounter Date Diagnosis Assessment Notes Treatment Notes Treatment Clinical Notes Jan, Other spondylosis wi th radiculopathy, lumbar region (ICD-10 - M47.26) [facility] Other 08-17-2023 Evaluation note* Encounter Date Diagnosis Assessment Notes Treatment Notes Treatment Clinical Notes Jan, Other spondylosis wi th radiculopathy, lumbar region (ICD-10 - M47.26) [facility] Other 08-11-2023 Hospital Discharge instructions* Discharge Instructions* Keyshawn Suresh PA-C - 02/08/2023 4:26 PM EDT Follow-up with primary care doctor 7 to 10 days for reevaluation. Continue to wear corrective shoe as directed to prevent future sciatica low back pain events. Take Hamburg as directed. As we discussed, break a tab of Hamburg in half and take every 6 hours as needed for pain. Promptly return to emergency department for new, changing, worsening of symptoms or other concerns. * Attachments The following attachments cannot be sent through Care Everywhere. * Back Pain (Eritrean) * Sciatica (Eritrean) documented in this encounterBON [facility] Evaluation note* Encounter Date Diagnosis Assessment Notes Treatment Notes Treatment Clinical Notes Jan, Acute non-recurrent maxillary si nusitis (ICD-10 - J01.00) No testing performed today in office. Discussed diagnosis with patient. Will today for bacterial sinusitis based on physical exam and duration of symptoms. Take antibiotic as prescribed, complete entire course of therapy even if symptoms resolve. Reviewed allergies and recent antibiotic use with patient. Advised patient to take rx of prednisone as directed, OTC Mucinex. Supportive care asdirected, push fluids and rest, Tylenol as directed for discomfort/fever, warm moist compress over sinuses several times a day, cool mist humidification, nasal saline spray as directed. Symptoms should improve in the next 3 days, if symptoms persist follow up with PCP. Immediate eval for warning s/sx as discussed. Patient verbalizes understanding and is agreeable to treatment plan Jan,Thrush (ICD-10 - B37.0) Diagnosis with patient today in office. Will send in Rx of nystatin to use as directed. Advised to start medication after completion of antibiotic therapy. Follow above of treatment plan recommendations. [facility] Other 05-28-2023 History of Present illness Narrative* Zunilda Bullock RN - 11/25/2022 10:47 AM EDT Ticket to ride completed. The following information was reported off: Name Allergies Orientation Level Destination Safety Issues Code Status Oxygen Requirements Special needs including mobility, language, communication documented in this encounterBON DIGN[facility] HOSPITALSeisquare Work Phone: [phone]) 139-338802-28-2023 Hospital Discharge instructions Patient Education 08/28/2022 13:26:40 [...] powder, vinegar, hot sauces, and barbecue sauce. ?[place]ler fruit juices and citrus fruits, such as oranges, kamilah, and limes. ?Tomato-based foods, such as red sauce, chili, salsa, and pizza with red sauce. ?Fried and fatty foods, such as donuts, british fries, potato chips, and high-fat dressings. ?High-fat [...] to any changes in your symptoms. Take uvxn-dwm-jmdmxau and prescription medicines only as told by [...] you have new or worsening symptoms. Take zynu-ang-jzsaars and prescription medicines only as told by [...] 03/27/2006 Document Revised: 12/24/2018 Document Reviewed: 12/24/2018 [employer]ks[employer] Patient Education 2020 [employer] Follow Up Care 08/15/2022 13:39:48 With:KHADAR STEINER, EMIL Ferrari, [facility] Address: [facility] [employer] [address] [place] [address] When:6 months Comments:Patient requests to be evaluated by Dr. Hernandez next visit. [facility] [phone] Evaluation note* Encounter Date Diagnosis Assessment Notes Treatment Notes Treatment Clinical Notes Jul, Sacroiliitis (ICD-10 - M46.1) Patient is voicing minimal complaints of pain at this time. She attributes this to a recent bilateral sacral lateral branch radiofrequency ablations. We will continue to monitor her symptoms in this region. Anatomy of spine discussed in detail with patient in regards to patients condition. Overall,patient believes their pain is reasonably well controlled and she is in agreement with our treatment plan. We will follow up with her as needed. Jul,Other spondylosis with radiculopathy, lumbar region (ICD-10 - M47.26) Jul,hronic pain (ICD-10 - G89.29) Jul,Other low back pain (ICD-10 - M54.59) Jul,OtherAbove note written by John Merlos LPN, Bank Courier. Edited and approved by Dr. Yanelis Garcia MD. [facility] [facility] Other 01-26-2023 Evaluation + Plan noteExtracted from:Title: ANES Pre-operative NoteAuthor:Misha STEINER, Michi WylieTobyDate:07/26/22 Plan [place] [employer]hesi[employer] (ASA) physical status classification: Class III. Anesthetic Preoperative Plan: Anesthesia General.[facility] 07-26-2022 Hospital Discharge instructions Patient Education 07/26/2022 08:42:33 [...] what activities are safe for you. Take rzmg-nnv-fkarikl and prescription medicines only as told by [...] 12/16/2012 Document Revised: 12/09/2018 Document Reviewed: 11/17/2018 [employer] Patient Education 2020 [employer]. Follow Up Care 07/10/2022 14:59:17 With:Ferrari KHADAR Address: [address] [place] [address] Business (1) When: Unknown Comments:Office will call date and time of follow-up appt. [facility]01[facility]17[facility] Discharge instructions* Discharge Instructions* Alma Mao DO - 07/12/2022 9:31 AM EST Go to your scheduled appt with your GI doctor for your scope. * Attachments The following attachments cannot be sent through Care Everywhere. * Sore Throat (Eritrean) [facility] [place] Phone: 1(880) 852-532901-10-2023 Hospital Discharge instructions Patient Education 07/10/2022 14:24:54 [...] powder, vinegar, hot sauces, and barbecue sauce. ?[place] fruit juices and citrus fruits, such as oranges, kamilah, and limes. ?Tomato-based foods, such as red sauce, chili, salsa, and pizza with red sauce. ?Fried and fatty foods, such as donuts, british fries, potato chips, and high-fat dressings. ?High-fat [...] to any changes in your symptoms. Take cekq-liy-hknxoqy and prescription medicines only as told by [...] you have new or worsening symptoms. Take haaq-kdp-cqnpzyd and prescription medicines only as told by [...] 03/27/2006 Document Revised: 12/24/2018 Document Reviewed: 12/24/2018 [employer] Patient Education 2020 [employer] Follow Up Care 06/26/2022 15:51:19 With:Donna Spencer CNP Address: When:1 to 2 weeks Comments:Following EGD. [facility] 12-14-2022 Evaluation note* Encounter Date Diagnosis Assessment Notes Treatment Notes Treatment Clinical Notes May, Sacroiliitis (ICD-10 - M46.1) Patients primary complaint today is returning low lumbar and gluteal pain, consistent with previouscomplaints of pain in the sacroiliac region. Based on previous positive results, as well as location of pain and exam findings, patient is a candidate for bilateral sacral lateral branch radiofrequency ablations which we will proceed with. Risks and benefits of procedure explained to patient; patient verbalizes understanding. Anatomy of spine discussed in detail with patient in regard to patientscondition. May,ther spondylosis with radiculopathy, lumbar region (ICD-10 - M47.26) May,hronic pain (ICD-10 - G89.29) May,ther low back pain (ICD-10 - M54.59) May,therAbove note written by John Merlos LPN, Bank Courier. Edited and approved by Dr. Yanelis Garcia MD. [employer] Other 11-02-2022 Evaluation note* Encounter Date Diagnosis Assessment Notes Treatment Notes Treatment Clinical Notes May, Sacroiliitis (ICD-10 - M46.1) May,ther spondylosis with radiculopathy, lumbar region (ICD-10 - M47.26)Patients primary complaint today is progressing low lumbar pain radiating into the posterior aspectof her left lower extremity, extending into her foot. She complains of numbness and tingling as well. Given her failure of recent conservative treatment, as well as progressing symptoms, I will orderan MRI of her lumbar spine for further evaluation. We will follow up with the patient to discuss further treatment once we receive the results of her imaging. Anatomy of spine discussed in detail with patient in regards to patients condition. May, chronic pain (ICD-10 - G89.29) May,Above note written by Rush Toro MA, Bank Courier. Edited and approved by Dr. Yanelis Garcia MD. [employer] [facility] Other 10-10-2022 Evaluation note* Encounter Date Diagnosis Assessment Notes Treatment Notes Treatment Clinical Notes Mar, Other low back pain (ICD-10 - M5 4.59) Mar,acroiliitis (ICD-10 - M46.1)Patients primary complaint today continues to be low [...] patient in regard to patients condition. Mar, chronic pain (ICD-10 - G89.29) Mar,Ab note written by John Merlos LPN, Bank Courier. Edited and approved by Dr. Yanelis Garcia MD. [employer] Other 04-13-2022 History of Present illness Narrative* Fermín Chen, PT - 10/11/2021 9:00 AM EDT Images from the original note were not included. [facility] Daily Note Date: 10/11/2021 Patient Name: Mary Jane Rios : 1945 (75 y.o.) Referring Practitioner: Dr. Meyer Referral Date : 08/10/21 Diagnosis: Right RCR repair Treatment Diagnosis: Right RCR Onset Date: 07/28/21 PT Insurance Information: [facility] Total # of Visits Approved: 18 Per [...] 35 deg @ 90 deg - [facility] Penitentiary Goals - Time Frame for asbestos handler goals : 18 visits detention goal 1: PROM flexion 150 deg and abduction 140 deg- MET asbestos handler goal 2: PROM ER 50 deg and IR 60 deg (@ 90 deg )- MET detention goal 3: Functionally elevate right shoulder to reach behind head for self care/hair care-MET asbestos handler goal 4: Functionally reach behind back to don coat or bra- NOT MET detention goal 5: Strength right shoulder/UE to carry gallon of milk- MET Post Treatment Pain: 08/10 Time In: 0900 Time Out : 0950 Timed Code Treatment Minutes: 45 Minutes Total Treatment Time: 50 Minutes FERMÍN CHEN PT Date: 10/11/2021 [facility] Phone: 1(325) 144-958404-13-2022 Hospital course Narrative* Fermín Chen, PT - 10/11/2021 9:00 AM EDT Images from the original note were not included. [facility] Discharge Summary Patient: Mary Jane Rios : 1945 Referring Practitioner: Dr. Meyer Diagnosis: Right RCR repair Date Treatment Initiated: 04/28/22 Date of Last Treatment: 10/11/21 PT Visit Information Onset Date: 07/28/21 PT Insurance Information: [facility] Total # of Visits Approved: 18 Total [...] Met Comments: Thank you for this referral FERMÍN CHEN PT Date: 10/11/2021 [facility] Phone: 1(342) 638-937004-06-2022 History of Present illness Narrative* Fermín Chen PT - 10/04/2021 11:15 AM EDT Images from the original note were not included. [facility] Daily Note Date: 10/04/2021 Patient Name: Mary Jane Rios : 1945 (75 y.o.) Referring Practitioner: Dr. Meyer Referral Date : 08/10/21 Diagnosis: Right RCR repair Treatment Diagnosis: Right RCR Onset Date: 07/28/21 PT Insurance Information: [facility] Total # of Visits Approved: 18 Per [...] 35 deg @ 90 deg - [facility]entiary Goals - Time Frame for detention goals : 18 visits detention goal 1: PROM flexion 150 deg and abduction 140 deg asbestos handler goal 2: PROM ER 50 deg and IR 60 deg (@ 90 deg ) asbestos handler goal 3: Functionally elevate right shoulder to reach behind head for self care/hair care asbestos handler goal 4: Functionally reach behind back to don coat or bra asbestos handler goal 5: Strength right shoulder/UE to carry gallong of milk Post Treatment Pain: 10/08 Time In: 1115 Time Out : 1200 Timed Code Treatment Minutes: 45 Minutes Total Treatment Time: 45 Minutes FERMÍN CHEN PT Date: 10/04/2021 [facility] Phone: [phone]) 625-428803-28-2022 History of Present illness Narrative* Rashmi Paige - 09/25/2021 11:15 AM EDT [facility] Date: 09/25/2021 Patient Name: Mary Jane Rios : 1945 Pt Cancelled Appt due to going to a . Rashmi Paige Date: 09/25/2021 [facility] Phone: 1(860) 184-432803-24-2022 History of Present illness Narrative* Velasquez Martel PTA - 09/21/2021 9:00 AM EDT Images from the original note were not included. [facility] Daily Note Date: 09/21/2021 Patient Name: Mary Jane Rios : 1945 (75 y.o.) Referring Practitioner: Dr. Meyer Referral Date : 08/10/21 Diagnosis: Right RCR repair Treatment Diagnosis: Right RCR Onset Date: 07/28/21 PT Insurance Information: [facility] Total # of Visits Approved: 18 Per [...] 35 deg @ 90 deg - [facility] Goals - Time Frame for detention goals : 18 visits detention goal 1: PROM flexion 150 deg and abduction 140 deg detention goal 2: PROM ER 50 deg and IR 60 deg (@ 90 deg ) detention goal 3: Functionally elevate right shoulder to reach behind head for self care/hair care detention goal 4: Functionally reach behind back to don coat or bra asbestos handler goal 5: Strength right shoulder/UE to carry gallong of milk Post Treatment Pain: 10/08 Time In: 0901 Time Out : 0946 Timed Code Treatment Minutes: 45 Minutes Total Treatment Time: 45 Minutes Velasquez Martel PTA Date: 09/21/2021 documented [facility] this [email or web address] Work Phone: 1(549) 799-568703-22-2022 History of Present illness Narrative* Nancy Nunez - 09/19/2021 9:15 AM EDT Images from the original note were not included. [facility] Daily Note Date: 09/19/2021 Patient Name: Mary Jane Rios : 1945 (75 y.o.) Referring Practitioner: Dr. 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 : 18 visits detention goal 1: PROM flexion 150 deg and abduction 140 deg detention goal 2: PROM ER 50 deg and IR 60 deg (@ 90 deg ) detention goal 3: Functionally elevate right shoulder to reach behind head for self care/hair care asbestos handler goal 4: Functionally reach behind back to don coat or bra detention goal 5: Strength right shoulder/UE to carry gallong of milk Post Treatment Pain: 09/07 Time In: 0915 Time Out : 0958 Timed Code Treatment Minutes: 43 Minutes Total Treatment Time: 43 Minutes Nancy Nunez,LOADING UNIT OPERATOR [place]IMPING Date: 09/19/2021 documented [facility] this [facility] Work Phone: 1(166) 817-682703-18-2022 History of Present illness Narrative* Velasquez Martel, LOADING UNIT OPERATOR CRIMPING - 09/15/2021 9:45 AM EDT Images from the original note were not included. [facility] Daily Note Date: 09/15/2021 Patient Name: Mary Jane Rios : 1945 (75 y.o.) Referring Practitioner: Dr. Meyer Referral Date : 08/10/21 Diagnosis: Right RCR repair Treatment Diagnosis: Right RCR Onset Date: 07/28/21 PT Insurance Information: [facility] Total # of Visits Approved: 18 Per [...] 35 deg @ 90 deg - [facility] Penitentiary Goals - Time Frame for detention goals : 18 visits asbestos handler goal 1: PROM flexion 150 deg and abduction 140 deg detention goal 2: PROM ER 50 deg and IR 60 deg (@ 90 deg ) detention goal 3: Functionally elevate right shoulder to reach behind head for self care/hair care asbestos handler goal 4: Functionally reach behind back to don coat or bra detention goal 5: Strength right shoulder/UE to carry gallong of milk Post Treatment Pain: 10/08 Time In: 0945 Time Out : 1030 Timed Code Treatment Minutes: 45 Minutes Total Treatment Time: 45 Minutes Velasquez Martel PTA Date: 09/15/2021 documented [facility] this [facility] Phone: [phone]) 996-202503-16-2022 History of Present illness Narrative* Velasquez Martel PTA - 09/13/2021 9:45 AM EDT Images from the original note were not included. [facility] Daily Note Date: 09/13/2021 Patient Name: Mary Jane Rios : 1945 (75 y.o.) Referring Practitioner: Dr. 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 : 18 visits detention goal 1: PROM flexion 150 deg and abduction 140 deg detention goal 2: PROM ER 50 deg and IR 60 deg (@ 90 deg ) asbestos handler goal 3: Functionally elevate right shoulder to reach behind head for self care/hair care detention goal 4: Functionally reach behind back to don coat or bra detention goal 5: Strength right shoulder/UE to carry gallong of milk Post Treatment Pain: 3-4/10 Time In: 0945 Time Out : 1030 Timed Code Treatment Minutes: 45 Minutes Total Treatment Time: 45 Minutes Velasquez Martel PTA Date: 09/13/2021 documented in this [facility] [employer] Work Phone: 1(634) 252-575803-10-2022 History of Present illness Narrative* Fermín Chen, PT - 09/07/2021 11:15 AM EST Images from the original note were not included. [facility] Daily Note Date: 09/07/2021 Patient Name: Mary Jane Rios : 1945 (75 y.o.) Referring Practitioner: Dr. Meyer Referral Date : 08/10/21 Diagnosis: Right RCR repair Treatment Diagnosis: Right RCR Onset Date: 07/28/21 PT Insurance Information: [facility] Total # of Visits Approved: 18 Per [...] 35 deg @ 90 deg - [facility] Goals - Time Frame for asbestos handler goals : 18 visits asbestos handler goal 1: PROM flexion 150 deg and abduction 140 deg detention goal 2: PROM ER 50 deg and IR 60 deg (@ 90 deg ) detention goal 3: Functionally elevate right shoulder to reach behind head for self care/hair care asbestos handler goal 4: Functionally reach behind back to don coat or bra asbestos handler goal 5: Strength right shoulder/UE to carry gallong of milk Post Treatment Pain: 210 Time In: 1105 Time Out : 1150 Timed Code Treatment Minutes: 45 Minutes Total Treatment Time: 45 Minutes FERMÍN CHEN, PT Date: 09/07/2021 documented [facility] this [facility] Phone: 1(160) 721-299512-13-2021 History of Present illness Narrative* Rashmi Phillipl - 06/12/2021 10:30 AM EST [facility] Date: 06/12/2021 Patient Name: Mary Jane Rios : 1945 Pt Cancelled Appt due to Illness Rashmi Shukla Kenjil Date: 06/12/2021 documented [facility] this [facility] Phone: 1(217) 315-890211-05-2021 History of Present illness Narrative* Fermín Chen, PT - 05/05/2021 2:30 PM EDT Images from the original note were not included. [facility] Daily Note Date: [...] IR @ 90 deg to 60 deg Penitentiary Goals - Time Frame for asbestos handler goals : 10 visits asbestos handler goal 1: Subjective right shoulder pain < 3/10 with daily household tasks detention goal 2: Active functional mobility to reach behind head for hair care and behind back to don coat/dressing detention goal 3: Strength right shoulder to lift/carry gallon of milk or fold clothes Post Treatment Pain: 09/07 Time In: 1435 Time Out : 1510 Timed Code Treatment Minutes: 35 Minutes Total Treatment Time: 35 Minutes FERMÍN CHEN PT Date: 05/05/2021 documented in this [email or web address] Work Phone: 1(326) 126-952805-21-2021 History of Present illness Narrative* Ericka Cline RN - 11/18/2020 6:50 AM EDT Pt states she took 6 tablets of Imodium yesterday. She states she is incontinent of urine/stool & the imodium is not helping. documented in this encounterMartin [facility] [email or web address] Work Phone: evaluation + Plan note No data available for this section [facility] Evaluation + Plan note Future Appointments Appointment Date:07/10/2022 02:00:00 PM Scheduled Provider:Donna Spencer CNP Location:[facility] Appointment Type:[facility] Follow Up [facility] Evaluation + Plan note Future Appointments Appointment Date:07/26/2022 08:15:00 AM Scheduled Provider: Location:[facility] Appointment Type:Surgery [facility] Evaluation + Plan note Future Appointments Appointment Date:02/28/2023 12:00:00 PM Scheduled Provider:Vonda HERNANDEZ MD Location:[facility] Appointment Type:[facility] Follow Up Future Scheduled Tests Laboratory* Vitamin B12 Level 08/28/22 [facility] Evaluation + Plan note Future Appointments Appointment Date:08/05/2023 12:30:00 PM Scheduled Provider: Location:[facility] Appointment Type:Surgery FT Future Scheduled Tests Laboratory* Vitamin B12 Level 08/28/22 [facility] evaluation note* Diagnosis Nausea vomiting and diarrhea- Primary Nausea with vomiting documented in this encounter [employer] Phone: evaluation note* Diagnosis Diarrhea of presumed infectious origin Intractable vomiting with nausea, unspecified vomiting type documented in this encounter [employer] Phone: [email or web address] note* Diagnosis Diarrhea, unspecified type- Primary General weakness Other malaise and fatigue Urinary incontinence, unspecified type documented in this encounter [employer] Phone: evalzykqme note* Diagnosis Low hemoglobin Anemia, unspecified documented in this encounter [employer] Phone: evalkgeycl note* Diagnosis Low hemoglobin Anemia, unspecified documented in this encounter [employer] Phone: [email or web address] note* Diagnosis Screening mammogram, encounter for documented in this encounter [employer] Phone: evaluation note* Diagnosis Right shoulder pain, unspecified chronicity documented in this encounter [employer] Phone: evaluation note* Diagnosis Acute non-recurrent pansinusitis documented in this encounter [employer] Phone: evalspmxxy note* Diagnosis Diarrhea of presumed infectious origin documented in this encounter [employer] [place], [place]* Diagnosis History of arthroscopy of right shoulder documented in this encounter [employer] Phone: evaluation note* Diagnosis Essential hypertension Unspecified essential hypertension Palpitations Hypothyroidism, unspecified type Hyperlipidemia, unspecified hyperlipidemia type Vitamin D deficiency disease Unspecified vitamin D deficiency documented in this encounter [employer] Phone: [email or web address] note* Diagnosis Essential hypertension Unspecified essential hypertension Pure hypercholesterolemia Acquired hypothyroidism Unspecified hypothyroidism Palpitations Vitamin D deficiency disease Unspecified vitamin D deficiency documented in this encounter [employer] Phone: evaluation note* Diagnosis Essential hypertension Unspecified essential hypertension Pure hypercholesterolemia Acquired hypothyroidism Unspecified hypothyroidism Palpitations Vitamin D deficiency disease Unspecified vitamin D deficiency documented in this encounter [employer] Phone: evaluation note* Diagnosis Essential hypertension Unspecified essential hypertension Pure hypercholesterolemia Acquired hypothyroidism Unspecified hypothyroidism Palpitations Vitamin D deficiency disease Unspecified vitamin D deficiency documented in this encounter [employer] Phone: evaluation note* Diagnosis Acute cystitis with hematuria- Primary Acute cystitis Vaginal yeast infection Candidiasis of vulva and vagina documented in this encounter [employer] Phone: [email or web address] note* Diagnosis Women's annual routine gynecological examination Vaginal burning Other specified symptom associated with female genital organs documented in this encounter [employer] Phone: evalzjkssv note* Diagnosis H/O repair of right rotator cuff Personal history of surgery to other organs documented in this encounter [employer] Phone: evalgaweua note* Diagnosis Visit for screening mammogram Other screening mammogram documented in this encounter [employer] Phone: [email or web address] noteNo assessment information [facility] Work Phone: Evaluation noteNo InformationN[employer] Other Evaluation note* Diagnosis Acute pharyngitis, unspecified etiology- Primary documented in this encounter [employer] Phone: evaleotpih note* Diagnosis Essential hypertension Unspecified essential hypertension Palpitations Hypothyroidism, unspecified type Hyperlipidemia, unspecified hyperlipidemia type Vitamin D deficiency disease Unspecified vitamin D deficiency documented in this encounter [employer] Phone: evaluation note* Diagnosis Non-recurrent acute suppurative otitis media of left ear without spontaneous rupture of tympanic membrane- Primary Acute nonintractable headache, unspecified headache type [facility] Phone: evaluation note* Diagnosis Chronic low back pain with right-sided sciatica, unspecified back pain laterality- Primary documented in this encounter [facility]* Diagnosis Renal cyst Unspecified congenital cystic kidney disease documented in this encounter [facility] note* Diagnosis Bruxism (teeth grinding)- Primary Other specified psychophysiological malfunction Acute suppurative otitis media of left ear without spontaneous rupture of tympanic membrane, recurrence not specified ROSETTE on CPAP Hearing loss, unspecified hearing loss type, unspecified laterality documented in this encounter [facility]* Diagnosis Sensorineural hearing loss, bilateral- Primary Hearing loss, unspecified hearing loss type, unspecified laterality [facility]* Diagnosis COVID-19 virus infection- Primary documented in this encounter [facility] note* Diagnosis New onset atrial fibrillation (HCC)- Primary Atrial fibrillation Atrial fibrillation with RVR (HCC) Atrial fibrillation History of chronic kidney disease Personal history of other disorder of urinary system Symptoms of dehydration Fluid level behind tympanic membrane of both ears Acute pansinusitis, recurrence not specified Nausea vomiting and diarrhea Nausea with vomiting [facility]* Diagnosis Paroxysmal atrial fibrillation (HCC)- Primary Atrial fibrillation [facility]* Diagnosis Visit for screening mammogram Other screening mammogram [facility]* Diagnosis COVID-19 virus infection- Primary documented in this encounter [facility]* Diagnosis Sprain of right ankle, unspecified ligament, initial encounter- Primary documented in this encounter [facility]* Diagnosis Grade 2 ankle sprain- Primary Pain in joint involving right ankle and foot Right foot pain Pain in soft tissues of limb Ankle instability, right documented in this encounter [facility] [facility] Diagnosis 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 (male)(female) documented in this encounter [facility]* Diagnosis Essential hypertension Unspecified essential hypertension Palpitations Hyperlipidemia, unspecified hyperlipidemia type Hypothyroidism, unspecified type Vitamin D deficiency disease Unspecified vitamin D deficiency [facility] Essential hypertension Unspecified essential hypertension Palpitations Hyperlipidemia, unspecified hyperlipidemia type Hypothyroidism, unspecified type Vitamin D deficiency disease Unspecified vitamin D deficiency [facility] Diagnosis Essential hypertension Unspecified essential hypertension Palpitations Hyperlipidemia, unspecified hyperlipidemia type Hypothyroidism, unspecified type Vitamin D deficiency disease Unspecified vitamin D deficiency [facility] Diagnosis Grade 2 ankle sprain- Primary Ankle instability, right Right foot drop Other acquired deformity of ankle and foot [facility] Gross hematuria [facility] Diagnosis Bacterial URI- Primary Dermatitis Contact dermatitis and other eczema, due to unspecified cause [facility] Diagnosis Cough, unspecified type- Primary Sore throat Acute pharyngitis Nasal congestion Other diseases of nasal cavity and sinuses Cough, unspecified type [facility] - [facility]* Type Description Date Medical History Cortical senile cataract Medical HistoryLump in neckMedical Historysleep apneaMedical HistoryGERDMedical HistoryAtrial flutterMedical HistoryHTNMedical HistoryDysrythmic disorderMedical HistoryChronic sinusitisMedical HistoryIBSMedical HistoryPalpitationsMedical HistoryDiaphramatic herniaMedical HistoryBenign neoplasm of stomachMedical HistoryhyperlipodemiaMedical HistoryMigranesMedical HistoryHypothyroidismMedical HistoryDiverticulisSurgical [id number] HistoryBilateral knee replacementSurgical HistoryRT hip replacementSurgical Historygallbladder removalSurgical HistoryPolyp removalSurgical HistoryCarpertunnel surgerySurgical HistorySigmoidSurgical HistorySurgery on sinusesSurgical Historyankle surgery Surgical HistoryEpidural injectionsHospitalization Historysee above [facility] Other History general Narrative - Reported* Type Description Date Medical History Cortical senile cataract Medical HistoryLump in neckMedical Historysleep apneaMedical HistoryGERDMedical HistoryAtrial flutterMedical HistoryHTNMedical HistoryDysrythmic disorderMedical HistoryChronic sinusitisMedical HistoryIBSMedical HistoryPalpitationsMedical HistoryDiaphramatic herniaMedical HistoryBenign neoplasm of stomachMedical HistoryhyperlipodemiaMedical HistoryMigranesMedical HistoryHypothyroidismMedical HistoryDiverticulisMedical HistoryappendectomyMedical HistoryArthritisMedical Historybasal cell carcinomaMedical HistorycataractsMedical Historygall bladder diseaseMedical Historyhigh cholesterolMedical Historymigraine headachesMedical HistoryosteoporosisMedical HistorypneumoniaMedical HistorypolioMedical History chronic depressionMedical HistoryanxietyMedical Historythyroid diseaseSurgical YirxclyCenvkaylough5025Nuwljuok HistoryBilateral knee replacementSurgical HistoryRT hip replacementSurgical Historygallbladder removalSurgical History Polyp removalSurgical HistoryCarpertunnel surgerySurgical HistorySigmoidSurgical HistorySurgery on sinusesSurgical Historyankle surgerySurgical HistoryEpidural injectionsSurgical HistoryherniaSurgical Historyrotator cuff tear repair Hospitalization Historysee above [facility] Other Hospital Discharge instructions* Attachments The following attachments cannot be sent through Care Everywhere. * Diarrhea (Eritrean) documented [facility] [email or web address] Work Phone: Hospital Discharge instructions* Attachments The following attachments cannot be sent through Care Everywhere. * Fatigue (Eritrean) * Diarrhea (Eritrean) * Stress Incontinence: Female (Eritrean) * Urge Incontinence: Female (Eritrean) documented in [facility] [email or web address] [facility] [email or web address] Work Phone: Hospital Discharge instructions* Attachments The following attachments cannot be sent through Care Everywhere. * UTI (Urinary Tract Infection): Female (Eritrean) * Vaginal Yeast Infection (Eritrean) documented in this [email or web address] [facility] [email or web address] Work Phone: Hospital Discharge instructions No data available for this section [facility] Discharge instructions* Attachments The following attachments cannot be sent through Care Everywhere. * Otitis Media (Eritrean) * Headache (Eritrean) [facility] Work [facility]: Hospital Discharge instructions* Attachments The following attachments cannot be sent through Care Everywhere. * Coronavirus Disease (COVID-19): General Info (Eritrean) [facility] Attachments The following attachments cannot be sent through Care Everywhere. * Supraventricular Tachycardia (Eritrean) [facility]* Attachments The following attachments cannot be sent through Care Everywhere. * Ankle Sprain (Eritrean) * RICE: General Info (Eritrean) [facility]* Attachments The following attachments cannot be sent through Care Everywhere. * Dermatitis (Eritrean) documented in this encounterOhioHealthInstructions* Attachments The following attachments cannot be sent through Care Everywhere. * Cough (Eritrean) documented in this encounterOhioHealthProgress note No data available for this section [facility] Reason for referral (narrative)No reason for referral information availableDelaware County Hospital Work Phone: Summary Purpose Family History No Family History Records Found Relationship Condition Age at Onset Recorded Date/T lennox Not Specified Family history of co ronary artery bypass surgery Unknown Chronic obstructive pulmonary diseaseUnknownDiabetes mellitusUnknownsister Malignant neoplasm of breastUnknownSystemic sclerosisUnknownsisterDiabetes mellitusUnknownbrotherHeart problemUnknownsisterPulmonary embolismUnknown Relationship Condition Age at Onset Recorded Date/T lennox Not Specified Family history of co ronary artery bypass surgery Unknown Chronic obstructive pulmonary diseaseUnknownDiabetes mellitusUnknownsister Malignant neoplasm of breastUnknownSystemic sclerosisUnknownsisterDiabetes mellitusUnknownbrotherHeart problemUnknownsisterPulmonary embolismUnknownfather DeceasedUnknownNot SpecifiedDiabetes mellitusUnknownDeceasedUnknownHeart disease Unknownnatural sonDiabetes mellitusUnknownsisterMalignant neoplasmUnknown Relationship Condition Age at Onset Recorded Date/T lennox mother Family history of co ronary artery bypass surgery Unknown Chronic obstructive pulmonary diseaseUnknownDiabetes mellitusUnknownsister Malignant neoplasm of breastUnknownSystemic sclerosisUnknownsisterDiabetes mellitusUnknownbrotherHeart problemUnknownsisterPulmonary embolismUnknownfather DeceasedUnknownmotherDiabetes mellitusUnknownDeceasedUnknownHeart diseaseUnknown sonDiabetes mellitusUnknownsisterMalignant neoplasmUnknown Advance Directives No Advanced Directives Records FoundDocuments on File TypeDate RecordedPatient RepresentativeExplanationAdvance Directives and Living WillAdvance Directives and Living Will03/01/2016 1:57 PMPower of AttorneyPower of Attorney03/01/2016 1:57 PMCode StatusDate ActivatedDate InactivatedCommentsFull Code02/21/2015 1:32 PM02/21/2015 5:10 PMFull Code02/21/2015 12:11 PM02/21/2015 1:32 PMFull Code01/31/2015 10:04 AM01/31/2015 12:51 PMFull Code01/31/2015 8:49 AM01/31/2015 10:04 AMFull Code04/30/2012 8:28 AM04/30/2012 3:52 PMTypeDate RecordedPatient RepresentativeExplanationAdvance Directives and Living WillAdvance Directives and Living Will03/01/2016 1:57 PMPower of AttorneyPower of Attorney03/01/2016 1:57 PMCode StatusDate ActivatedDate InactivatedCommentsFull Code02/21/2015 1:32 PM 02/21/2015 5:10 PMFull Code02/21/2015 12:11 PM02/21/2015 1:32 PMFull Code01/31/2015 10:04 AM01/31/2015 12:51 PMFull Code01/31/2015 8:49 AM01/31/2015 10:04 AMFull Code 04/30/2012 8:28 AM04/30/2012 3:52 PMTypeDate RecordedPatient Director Of Institutional Sales ExplanationACP-Advance DirectiveACP-Advance Directive03/01/2016 1:57 PMACP-Power of AttorneyACP-Power of Attorney03/01/2016 1:57 PMTypeDate RecordedPatient RepresentativeExplanationACP-Advance DirectiveACP-Advance Directive03/01/2016 1:57 PMACP-Power of AttorneyACP-Power of Attorney03/01/2016 1:57 PMTypeDate Recorded Patient RepresentativeExplanationACP-Advance DirectiveACP-Power of AttorneyACP- Advance Directive03/01/2016 1:57 PMACP-Power of Attorney03/01/2016 1:57 PMTypeDate RecordedPatient RepresentativeExplanationACP-Advance DirectiveACP-Power of AttorneyACP-Advance Directive03/01/2016 1:57 PMACP-Power of Attorney03/01/2016 1:57 PMNameRelationshipHealthcare Agent RelationshipCommunicationClarence AthySpouse Primary Decision Maker* NameRelationshipHealthcare Agent RelationshipCommunicationClarence AthySpouse Primary Decision Maker* NameRelationshipHealthcare Agent RelationshipCommunicationClarence AthySpouse Primary Decision Maker* NameRelationshipHealthcare Agent RelationshipCommunicationClarence AthySpouse Primary Decision Maker* NameRelationshipHealthcare Agent RelationshipCommunicationClarence AthySpouse Primary Decision Maker* NameRelationshipHealthcare Agent RelationshipCommunicationClarence AthySpouse Primary Decision Maker* NameRelationshipHealthcare Agent RelationshipCommunicationClarence AthySpouse Primary Decision Maker* NameRelationshipHealthcare Agent RelationshipCommunicationClarence AthySpouse Primary Decision Maker* NameRelationshipHealthcare Agent RelationshipCommunicationClarence AthySpouse Primary Decision Maker* NameRelationshipHealthcare Agent RelationshipCommunicationClarence AthySpouse Primary Decision Maker* TypeDate RecordedPatient RepresentativeExplanationACP-Advance Directive03/01/2016 1:57 PMACP-Power of Attorney03/01/2016 1:57 PMNameRelationshipHealthcare Agent RelationshipCommunicationClarence AthySpousePrimary Decision Maker* Advance Directive Response Recorded Date/ Time Advance Directives No April 22, 2017 3:57pm Advance Directive Response Recorded Date/ Time Advance Directives No April 22, 2017 2:57pm TypeDate RecordedPatient RepresentativeExplanationACP-Advance Directive03/01/2016 1:57 PMACP-Power of Attorney03/01/2016 1:57 PMNameRelationshipHealthcare Agent RelationshipCommunicationClarence AthySpousePrimary Decision Maker* NameRelationshipHealthcare Agent RelationshipCommunicationClarence AthySpouse Primary Decision Maker* NameRelationshipHealthcare Agent RelationshipCommunicationClarence AthySpouse Primary Decision Maker* Code StatusDate ActivatedDate InactivatedCommentsFull Code02/21/2015 1:32 PM 02/21/2015 5:10 PMCode StatusDate ActivatedDate InactivatedCommentsFull Code 02/21/2015 12:11 PM02/21/2015 1:32 PMFull Code01/31/2015 10:04 AM01/31/2015 12:51 PM Full Code01/31/2015 8:49 AM01/31/2015 10:04 AMFull Code04/30/2012 8:28 AM04/30/2012 3:52 PMNameRelationshipHealthcare Agent RelationshipCommunicationClarence Athy SpousePrimary Decision Maker* NameRelationshipHealthcare Agent RelationshipCommunicationClarence AthySpouse Primary Decision Maker* NameRelationshipHealthcare Agent RelationshipCommunicationClarence AthySpouse Primary Decision Maker* TypeDate RecordedPatient RepresentativeExplanationACP-Power of Attorney03/01/2016 1:57 PMACP-Advance Directive03/01/2016 1:57 PMCode StatusDate ActivatedDate InactivatedCommentsFull Code02/21/2015 1:32 PM02/21/2015 5:10 PMCode StatusDate ActivatedDate InactivatedCommentsFull Code02/21/2015 12:11 PM02/21/2015 1:32 PM Full Code01/31/2015 10:04 AM01/31/2015 12:51 PMFull Code01/31/2015 8:49 AM01/31/2015 10:04 AMFull Code04/30/2012 8:28 AM04/30/2012 3:52 PMNameRelationshipHealthcare Agent RelationshipCommunicationClarence AthySpousePrimary Decision Maker* TypeDate RecordedPatient RepresentativeExplanationACP-Power of Attorney03/01/2016 1:57 PMACP-Advance Directive03/01/2016 1:57 PMNameRelationshipHealthcare Agent RelationshipCommunicationClarence AthySpousePrimary Decision Maker* NameRelationshipHealthcare Agent RelationshipCommunicationClarence AthySpouse Primary Decision Maker* NameRelationshipHealthcare Agent RelationshipCommunicationClarence AthySpouse Primary Decision Maker* Date ActivatedDate InactivatedComments02/21/2015 1:32 PM02/21/2015 5:10 PMDate ActivatedDate InactivatedComments02/21/2015 12:11 02/21/2015 1:32 PMDate ActivatedDate InactivatedComments01/31/2015 10:04 AM01/31/2015 12:51 PMDate ActivatedDate InactivatedComments01/31/2015 8:49 AM01/31/2015 10:04 AMDate Activated Date [id number]/31/2012 8:28 AM04/30/2012 3:52 PMNameRelationship Healthcare Agent RelationshipCommunicationClarence AthySpousePrimary Decision Maker* Date ActivatedDate InactivatedComments02/21/2015 1:32 PM02/21/2015 5:10 PMDate ActivatedDate InactivatedComments02/21/2015 12:11 PM02/21/2015 1:32 PMDate ActivatedDate InactivatedComments01/31/2015 10:04 AM01/31/2015 12:51 PMDate ActivatedDate InactivatedComments01/31/2015 8:49 AM01/31/2015 10:04 AMDate Activated Date [id number]/31/2012 8:28 AM04/30/2012 3:52 PMNameRelationship Healthcare Agent RelationshipCommunicationClarence AthySpousePrimary Decision Maker* NameRelationshipHealthcare Agent RelationshipCommunicationClarence AthySpouse Primary Decision Maker* * * Cancer Prevention [email or web address] NameRelationshipHealthcare Agent RelationshipCommunicationClarence AthySpouse Primary Decision Maker* * * Cancer Prevention [email or web address] NameRelationshipHealthcare Agent RelationshipCommunicationClarence AthySpouse Primary Decision Maker* * * [email or web address] NameRelationshipHealthcare Agent RelationshipCommunicationClarence AthySpouse Primary Decision Maker* * * Cancer Prevention [email or web address] NameRelationshipHealthcare Agent RelationshipCommunicationClarence AthySpouse Primary Decision Maker* * * Cancer Prevention Pharmaceuticalsa@[email or web address] NameRelationshipHealthcare Agent RelationshipCommunicationClarence AthySpouse Primary Decision Maker* * * Cancer Prevention [email or web address] Discharge Instructions * Instructions* Lexy Tapia MD - 05/30/2019 Antibiotic written as a SNAP (Safety net antibiotic prescription), start medication if fever develops You can take your Melania or Melania D or Claritin if desired, in addition to Flonase which may also help both your sinuses and ear effusions * Attachments The following attachments cannot be sent through Care Everywhere. * Sinusitis (Eritrean) documented in this encounter* Attachments The following attachments cannot be sent through Care Everywhere. * Fatigue (Eritrean) * Vertigo (Eritrean) documented in this encounter Assessments Diagnosis Acute [...] documented in this encounter Reason for Referral StatusReasonSpecialtyDiagnoses / ProceduresReferred By ContactReferred To ContactOpenCardiology Diagnoses Essential hypertension Palpitations Hypothyroidism, unspecified type Procedures EKG 12 Lead Reagan Pascal MD [address] [place] [address] StatusReasonSpecialtyDiagnoses / ProceduresReferred By ContactReferred To ContactClosedRadiology Diagnoses Screening mammogram, encounter for Procedures N[facility] WU DIGITAL SCREEN BILATERAL Roni Dahl MD [address] [place] [address] [facility] [address] [place] [address] SpecialtyDiagnoses / ProceduresReferred By ContactReferred To ContactCardiology Diagnoses Essential hypertension Palpitations Hypothyroidism, unspecified type Hyperlipidemia, unspecified hyperlipidemia type Vitamin D deficiency disease Procedures EKG 12 Lead Vigesaa, Reagan S, MD [address] [place] [address] Referral IDStatusReasonStart DateExpiration DateVisits RequestedVisits [id number]ptnag / ProceduresReferred By ContactReferred To ContactOpenCardiology Diagnoses Essential hypertension Pure hypercholesterolemia Acquired hypothyroidism Palpitations Vitamin D deficiency disease Procedures EKG 12 Reagan Atkins MD [address] [place] [address] SpecialtyDiagnoses / ProceduresReferred By ContactReferred To ContactRadiology Diagnoses Visit for screening mammogram Procedures [facility] WU DIGITAL SCREEN BILATERAL Roni Dahl MD [address] [place] [address] Referral IDStatusReasonStart DateExpiration DateVisits RequestedVisits [id number] / Procedures Referred By ContactReferred To ContactRadiology Diagnoses Renal cyst Procedures US RENAL LIMITED Yanelis Guzman MD [address] [place] [address], [address] [place] [address] Referral IDStatusReasonStart DateExpiration DateVisits RequestedVisits [id number] / Procedures Referred By ContactReferred To ContactAudiology Diagnoses Hearing loss, unspecified hearing loss type, unspecified laterality Sj Hutchinson Jr., DO [address] [place] [address] Mary Sue, Oswaldo [address] [place] [address] Referral IDStatusReasonStart DateExpiration DateVisits RequestedVisits [id number] Specialty Services Required/Patient's Best Interest 11/2/329729/407995PtcmwyfebKrknuttop / ProceduresReferred By ContactReferred To ContactCardiology Diagnoses New onset atrial fibrillation (HCC) Atrial fibrillation with RVR (HCC) Procedures 93[address] - [place] Single/Multiple Event Recorder Lexy Tapia MD [address] [place] [address] [place] [address] Referral IDStatusReasonStart DateExpiration DateVisits RequestedVisits [id number]/24/20244/[id number] IDStatusReasonStart Date Expiration DateVisits RequestedVisits [id number] / ProceduresReferred By ContactReferred To ContactCardiology Diagnoses Essential hypertension Palpitations Hyperlipidemia, unspecified hyperlipidemia type Hypothyroidism, unspecified type Vitamin D deficiency disease Procedures EKG 12 Lead Reagan Pascal MD [address] [place] [address] Referral IDStatusReasonStart DateExpiration DateVisits RequestedVisits [id number] Review/ Chief Complaint and Reason for Visit Chief [...] section and content) DATE CREATED AUTHOR 12/24/2017 [facility] DATE CREATED AUTHOR AUTHOR'S ORGANIZ ATION 03/27/2018 [facility] DATE CREATED AUTHOR AUTHOR'S ORGANIZ ATION 07/13/2021 [facility] DATE CREATED AUTHOR AUTHOR'S ORGANIZ ATION 04/13/2023 [facility] DATE CREATED AUTHOR AUTHOR'S ORGANIZ ATION 05/06/2023 [facility] DATE CREATED AUTHOR AUTHOR'S ORGANIZ ATION 01/17/2024 [facility] DATE CREATED AUTHOR AUTHOR'S ORGANIZ ATION 08/31/2024 [facility] DATE CREATED AUTHOR AUTHOR'S ORGANIZ ATION 11/28/2024 [facility] DATE CREATED AUTHOR AUTHOR'S ORGANIZ ATION 12/23/2024 [facility] DATE CREATED AUTHOR AUTHOR'S ORGANIZ ATION 02/10/2025 [facility] DATE CREATED AUTHOR AUTHOR'S ORGANIZ ATION 03/16/2025 [facility] DATE CREATED AUTHOR AUTHOR'S ORGANIZ ATION 04/17/2025 [facility] Reason for Visit (unrecogniz ed section and content) ReasonCommentsIllnessPt states that she had a cough and wheezing for the past couple of days as well as a headache;StatusReasonSpecialtyDiagnoses / Procedures Referred By ContactReferred To ContactClosedRadiology Diagnoses Visit for screening mammogram Procedures ANA DIGITAL SCREEN W OR WO CAD BILATERAL ANA DIGITAL SCREENING AUGMENTED BILATERAL HC MAMMOGRAM DIGITAL SCREEN Roni Sales MD [address] [place] [id number] [facility] [address] [place] [address] ReasonCommentsIllnessPt has not been feeling well for about 5-6 weeks. pt states, I just feel uncoordinated, and weak. Pt has been dizzy but diagnosed with vertigo. Pt was exposed to covid on 03/15.ReasonCommentsDiarrheaPt states she has had diarrhea since last saturday & she has been vomiting since 499. ReasonCommentsAbdominal Painwas seen in ed two weeks ago for diarrhea and vomiting. Patient continues to have loose stool. Complains of fatigue and new urine incontinenceDiarrheaStatusReasonSpecialtyDiagnoses / ProceduresReferred By ContactReferred To ContactClosedRadiology Diagnoses Screening mammogram, encounter for Procedures [facility] WU DIGITAL SCREEN BILATERAL Roni Dahl MD [address] [place] [address] [facility] [address] [place] [address] StatusReasonSpecialtyDiagnoses / ProceduresReferred By ContactReferred To ContactOpenPhysical Therapy Diagnoses Shoulder pain, right Procedures physical therapy Christian Meyer DO [address] [place] [address] Fermín Chen, PT [address] [place] [address] SpecialtyDiagnoses / ProceduresReferred By ContactReferred To ContactPhysical Therapy Diagnoses Shoulder pain, right Procedures physical therapy Christian Meyer DO [address] [place] [address] Fermín Chen, PT [address] [place] [address] Referral IDStatusReasonStart DateExpiration DateVisits RequestedVisits [id number]/29/202110/[id number] Tract InfectionPt states that she has been having painful urination x 10 days. SpecialtyDiagnoses / ProceduresReferred By ContactReferred To ContactRadiology Diagnoses Visit for screening mammogram Procedures [facility] WU DIGITAL SCREEN BILATERAL Roni Dahl MD [address] [place] [address] Referral IDStatusReasonStart DateExpiration DateVisits RequestedVisits [id number]///[id number]Nkmuwz pain for two days, feels like I am swallowing golf balls ReasonCommentsNasal CongestionCoughCoughPt c/o of congestion cough headache. She reports diagnosed with PNA one week ago finished one ATB and is currently still finishing a second ATBReasonCommentsHip PainPatient complains of right hip pain that started last after working in the garden. [facility] and given cortisone/ muscle relaxer. Patient unable to relieve pain.Specialty Diagnoses / ProceduresReferred By ContactReferred To ContactRadiology Diagnoses Renal cyst Procedures US RENAL LIMITED Yanelis Guzman MD [address], [address] [place] [address] Referral IDStatusReasonKingman DateExpiration DateVisits RequestedVisits [id number] MediaNP, referral from Pastora Rowe CNP for otitis media. Patient states she has had left ear infections for most of her life. She was treated for ear infection with Augmentin in October. 3 weeks ago, woke up with extreme pain and was treated again for b/l ear infection. [facility] and was told thather ear was still infected. Last hearing test several years ago in [place]. 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 Saw [facility] in 2019.SpecialtyDiagnoses / ProceduresReferred By ContactReferred To ContactOtolaryngology Diagnoses Acute suppurative otitis media of left ear without spontaneous rupture of tympanic membrane, recurrence not specified Pastora Rowe CNP [address] [place] [address] Sj Hutchinson Jr., DO [address] [place] [address] Referral IDStatusReasonStbowling green DateExpiration DateVisits RequestedVisits [id number] Specialty Services Required/Patient's Best Interest /[id number] / ProceduresReferred By ContactReferred To ContactAudiology Diagnoses Hearing loss, unspecified hearing loss type, unspecified laterality Sj Hutchinson Jr., DO [address] [place] [address] Mary Sue, AuD [address] [place] [address] Referral IDStatUniversity [facility]als [facility] DateExpiration DateVisits RequestedVisits [id number] Specialty Services Required/Patient's Best Interest /[id number]md, runny nose, congestion since Saturday. Patient's is covid +ReasonCommentsDiarrheaStates has been having diarrhea since yesterday and vomited 1x since yesterday.ReasonComments TachycardiaPt reports heart racing' started today around 2 pm No chest pain, slight SOBRecent dx AFib within last 3 weeksReferral IDStatusReasonStart Date Expiration DateVisits RequestedVisits [id number]/[id number] been nauseated for past couple days with left ear ache and headache. Stated she has a sore throat with fever. Has taken 3 doses of Augmentin that she had left overReasonCommentsAnkle PainPt states that she has had right ankle pain that started yesterday. Fall in May when she hurt it and it has intermittently hurt ever since.ReasonCommentsAnkle PainRgt Ankle painReasonCommentsFollow-upRT ankle painReasonCommentsCough1 week. Productive cough, sore throat, bilateral ear fullness, headache, eye drainage, runny nose.ReasonCommentsSore Throat3 weeks. Sore throat, fatigue, bilateral ear itching, dizziness, post nasal drip, productive cough.Pt felt a little better with Augmentin during last visit then symptoms came back. Ordered Prescriptions (unrec ognized section and content) PrescriptionSigDispensedRefillsStart DateEnd ondansetron (ZOFRAN ODT) 4 MG disintegrating tablet Take 1 tablet by mouth every 8 hours as needed for Nausea or Vomiting 10 tablet diphenoxylate-atropine (LOMOTIL) 2.5-0.025 MG per tablet Indications:Nausea vomiting and diarrheaTake 1 tablet by mouth 4 times daily as needed for Diarrhea for up to 3 days. 10 tablet /rescriptionSigDispensedRefillsStart DateEnd oxybutynin (DITROPAN XL) 5 MG extended release tablet Take 1 tablet by mouth daily 30 tablet loperamide (RA ANTI-DIARRHEAL) 2 MG capsule Take 1 capsule by mouth 4 times daily as needed for Diarrhea 30 capsule /rescriptionSigDispensedRefillsStart DateEnd nitrofurantoin, macrocrystal-monohydrate, (MACROBID) 100 MG capsule Take 1 capsule by mouth 2 times daily for 10 days 20 capsule / clotrimazole (LOTRIMIN) 2 % CREA vaginal cream 1 applicator per vaginal at bedtime x 5 days 5 each fluconazole (DIFLUCAN) 100 MG tablet 1 tab PO x1 now, and 1 tab PO when antibiotics completed 2 tablet rescriptionSigDispensedRefillsStart DateEnd nystatin (MYCOSTATIN) 028597 UNIT/ML suspension Take 5 mLs by mouth 4 times daily Swish and swallow. 200 mL amoxicillin-clavulanate (AUGMENTIN) 875-125 MG per tablet Take 1 tablet by mouth 2 times daily for 10 days 20 tablet /12/2022 nystatin (MYCOSTATIN) 830615 UNIT/ML suspension Take 5 mLs by mouth 4 times daily Swish and swallow. 200 mL // amoxicillin-clavulanate (AUGMENTIN) 875-125 MG per tablet Take 1 tablet by mouth 2 times daily for 10 days 20 tablet /rescriptionSigDispensedRefillsStart DateEnd azithromycin (ZITHROMAX Z-FABI) 250 MG tablet Take 2 tablets (500 mg) on Day 1, and then take 1 tablet (250 mg) on days 2 through 5. 1 packet /10/2023 predniSONE (DELTASONE) 20 MG tablet 2 tablets daily x 2 days then 1 tablet 6 tablet rescriptionSigDispensedRefillsStart DateEnd clotrimazole (MYCELEX) 10 MG anastasia Take 1 tablet by mouth 4 times daily as needed (thrush) 40 tablet /09/2023 ondansetron (ZOFRAN-ODT) 4 MG disintegrating tablet Take 1 tablet by mouth 3 times daily as needed for Nausea or Vomiting 21 tablet metoprolol tartrate (LOPRESSOR) 25 MG tablet Take 0.5 tablets by mouth 2 times daily 15 tablet apixaban (ELIQUIS) 5 MG TABS tablet Take 1 tablet by mouth 2 times daily 60 tablet fluticasone (FLONASE) 50 MCG/ACT nasal spray Indications:Acute pansinusitis, recurrence not specified1 spray by Nasal route daily 3 each rescriptionSigDispensedRefEnd traMADol (ULTRAM) 50 MG tablet Indications:Sprain of right ankle, unspecified ligament, initial encounterTake 1 tablet by mouth every 6 hours as needed for Pain for up to 3 days. Intended supply: 3 days. Take lowest dose possible to manage pain Max Daily Amount: 200 mg 12 tablet / Scheduled Active and Recently Administ ered Medications (unrecognized section and content) Medication Order// 0.9 % sodium chloride bolus (COMPLETED) 1,000 mL (9.88 mL/kg), Intravenous, at 500 mL/hr, Administer over 2 Hours, ONCE, On Sat11/18/20 at 0715, For 1 dose * 0713 (New Bag - Provider: Ericka Cline, MARIFER) * 0927 (Stopped - Provider: Yumiko Rojas RN) ondansetron (ZOFRAN) injection 4 mg (COMPLETED) 4 mg, Intravenous, ONCE, On Sat11/18/20 at 0715, For 1 dose * 0713 (Given - Provider: Ericka Cline, MARIFER) Medication Order02/06////05/2023 dexamethasone (DECADRON) injection 8 mg (COMPLETED) 8 mg, IntraMUSCular, ONCE, On Sat02/08/23 at 1445, For 1 dose * 1447 (Given - Provider: Emily Choi, MARIFER) hydrocodone-acetaminophen (NORCO) tablet 5-325 mg (STARTER PACK) This order is for a take home starter pack of medication. Please document Furnish to patient on the AUG. * 1448 (Furnished to Patient - Provider: Emily Choi RN) Medication Order10/20//// ondansetron (ZOFRAN) injection 4 mg (COMPLETED) 4 mg, IntraVENous, ONCE, 1 dose, On Sat10/23/23 at 1000 * 0957 (Given - Provider: Yumiko Rojas RN) sodium chloride 0.9 % bolus 1,000 mL (COMPLETED) 1,000 mL (10.3 mL/kg), IntraVENous, at 983.6 mL/hr, Administer over 61 Minutes, ONCE, On Sat10/23/23 at 1000, For 1 dose * 0956 (New Bag - Provider: Yumiko Rojas RN) * 1100 (Stopped - Provider: Khai Ma RN) Medication Order11/11//// magnesium sulfate 2000 mg in 50 mL IVPB premix (COMPLETED) 2,000 mg, IntraVENous, at 25 mL/hr, Administer over 2 Hours, ONCE, On Sat11/14/23 at 2045, For 1 dose, Recommended infusion rate not to exceed 1,000 mg (milligrams) per hour. * 2050 (New Bag - Provider: Maria R Love RN) * 2209 (Rate/Dose Change - Provider: Kasey Currie RN - Comment: rate increased per to finish medication dose) * 2226 (Stopped - Provider: Kasey Currie RN) metoprolol (LOPRESSOR) injection 5 mg (COMPLETED) 5 mg, IntraVENous, ONCE, 1 dose, On Shannan 11/14/23 at 1915 * 1914 (Given - Provider: Maria R Love RN) metoprolol (LOPRESSOR) injection 5 mg (COMPLETED) 5 mg, IntraVENous, ONCE, 1 dose, On Shannan 11/14/23 at 2015 * 2012 (Given - Provider: Maria R Love RN) metoprolol tartrate (LOPRESSOR) tablet 50 mg (COMPLETED) 50 mg, Oral, ONCE, 1 dose, On Shannan 11/14/23 at 2029 * 2046 (Given - Provider: Maria R Love RN) potassium chloride (KLOR-CON) extended release tablet 40 mEq (COMPLETED) 40 mEq, Oral, ONCE, 1 dose, On Shannan 11/14/23 at 2044, Do not crush or break. * 2046 (Given - Provider: Maria R Love RN) Care Teams (unrecognized sec tion and content) Team MemberRelationshipSpecialtyStart DateEnd Date Roni Dahl MD [address] [place] [address] PCP - General07/15/12Team MemberRelationshipSpecialtyStart DateEnd Date Roni Dahl MD [address] [place] [address] PCP - General07/15/12Team MemberRelationshipSpecialtyStart DateEnd Date Roni Dahl MD [address] [place] [address] PCP - General07/15/12Team MemberRelationshipSpecialtyStart DateEnd Date Roni Dahl MD [address] [place] [address] PCP - General07/15/12Team MemberRelationshipSpecialtyStart DateEnd Date Roni Dahl MD [address] [place] [address] PCP - General07/15/12Team MemberRelationshipSpecialtyStart DateEnd Date Roni Dahl MD [address] [place] [address] PCP - General07/15/12Team MemberRelationshipSpecialtyStart DateEnd Date Roni Dahl MD [address] [place] [address] PCP - General07/15/12Team MemberRelationshipSpecialtyStart DateEnd Date Roni Dahl MD [address] [place] [address] PCP - General07/15/12Team MemberRelationshipSpecialtyStart DateEnd Date Roni Dahl MD [address] [place] [address] PCP - General07/15/12Team MemberRelationshipSpecialtyStart DateEnd Date Roni Dahl MD [address] [place] [address] PCP - General07/15/12Team MemberRelationshipSpecialtyStart DateEnd Date Roni Dahl MD [address] [place] [address] PCP - General07/15/12Team MemberRelationshipSpecialtyStart DateEnd Date Roni Dahl MD [address] [place] [address] PCP - General07/15/12 Team Status: Inactive Member Role Status Dates Roni Dahl MD Primary Care Provider Active Dwight Stone ProviderActive Team Status: Inactive Member Role Status Dates Roni Dahl MD Primary Care Provider Active Nick Cedeño ProviderActive Team Status: Active Member Role Status Dates Roni Dahl MD Primary Care Provider Active Team Status: Inactive Member Role Status Dates Roni Dahl MD Primary Care Provider Active Dwight Love ProviderActiveTeam MemberRelationshipSpecialtyStart DateEnd Date Roni Dahl MD [address] [place] [address] [facility]07/15/12Team MemberRelationshipSpecialtyStart DateEnd Date Roni Dahl MD [address] [place] [address] [facility]07/15/12Team MemberRelationshipSpecialtyStart DateEnd Date Roni Dahl MD [address] [place] [address] [facility]07/15/12Team MemberRelationshipSpecialtyStart DateEnd Date Roni Dahl MD [address] [place] [address] PCP [facility]07/15/12Team MemberRelationshipSpecialtyStart DateEnd Date Roni Dahl MD [address] [place] [address] PCP [facility]07/15/12 Team Status: Inactive Member Role Status Dates Roni Dahl MD Primary Care Provider Active Diana Ayala ProviderActiveTeam MemberRelationshipSpecialty Start DateEnd Date Roni Dahl MD [address] [place] [address] PCP - General07/15/12 Team Status: Inactive Member Role Status Dates Roni Dahl MD Primary Care Provider Active Mukul Wilson MDAttc[facility] ProviderActiveTeam MemberRelationshipSpecialtyStart DateEnd Date Roni Dahl MD [address] [place] [address] [facility] - General07/15/12Team MemberRelationshipSpecialtyStart DateEnd Date Roni Dahl MD [address] [place], [place] [phone] [facility] - [facility]04/24/23Team MemberRelationshipSpecialtyStart Date End Date Roni Dahl MD [address] [place] [address] [facility]04/24/23 Team Status: Inactive Member Role Status Dates Roni Dahl MD Primary Care Provider Active Obie Hylton MDAselect [facility] ProviderActiveTeam MemberRelationshipSpecialtyStart DateEnd Date Roni Dahl MD [address] [place] [address] [facility]07/15/12 Team Status: Inactive Member Role Status Dates Roni Dahl MD Primary Care Provider Active Start: September 19, 2023 End: September 19, 2023Jociera Sanchez NP-Xavier ProviderActiveStart: September 19, 2023 End: September 19, 2023Team MemberRelationshipSpecialtyStart DateEnd Date Roni Dahl MD [address] [place], [place] [phone] PCP [facility]07/15/12Team MemberRelationshipSpecialtyStart DateEnd Date Roni Dahl MD [address] [place] [address] PCP [facility]07/15/12 Team Status: Inactive Member Role Status Dates Roni Dahl MD Primary Care Provider Active Start: December 19, 2023 End: December 19, 2023Mattjesus Hylton MDAttending ProviderActiveStart: December 19, 2023 End: December 19, 2023 Team Status: Inactive Member Role Status Dates Roni Dahl MD Primary Care Provider Active Start: February 06, 2024 End: February 06, 2024Matyler Hylton MDAttending ProviderActiveStart: February 06, 2024 End: February 06, 2024Team MemberRelationshipSpecialtyStart DateEnd Date Roni Dahl MD [address] [place] [phone] [facility]07/15/12Team MemberRelationshipSpecialtyStart DateEnd Date Roni Dahl MD [address] [place] [phone] PCP [facility]07/15/12 Team Status: Inactive Member Role Status Dates Roni Dahl MD Primary Care Provider Active Start: August 11, 2024 End: August 11, 2024Mattjesus Hylton MDAttending ProviderActiveStart: August 11, 2024 End: August 11, 2024Team MemberRelationshipSpecialtyStart DateEnd Date Roni Dahl MD [address] [place] [address] PCP [facility]08/17/24Team MemberRelationshipSpecialtyStart DateEnd Date Roni Dahl MD [address] [place] [address] PCP - [facility]08/17/24Team MemberRelationshipSpecialtyStart DateEnd Date Roni Dahl MD [address] [place] [phone] PCP - General07/15/12Team MemberRelationshipSpecialtyStart DateEnd Date Roni Dahl MD [address] [place] [phone] PCP - General07/15/12Team MemberRelationshipSpecialtyStart DateEnd Date Roni Dahl MD [address] [place] [phone] PCP - General07/15/12 Team Status: Inactive Member Role Status Dates Roni Dahl MD Primary Care Provider Active Start: September 10, 2024 End: September 10, 2024Jociera Sanchez APARTMENT LEASING CONSULTANT-CAttending ProviderActiveStart: September 10, 2024 End: September 10, 2024Team MemberRelationshipSpecialtyStart DateEnd Date Roni Dahl MD [address] [place] [phone] PCP - [facility]08/17/24Team MemberRelationshipSpecialtyStart DateEnd Date Roni Dahl MD [address] [place] [address] PCP - [facility]08/17/24Team MemberRelationshipSpecialtyStart DateEnd Date Roni Dahl MD [address] [place] [address] PCP - General07/15/12Team MemberRelationshipSpecialtyStart DateEnd Date Roni Dahl MD [address] [place] [address] PCP - [facility]04/24/23Team MemberRelationshipSpecialtyStart Date End Date Roni Dahl MD [address] [place] [place] [address] PCP - [facility]04/24/23 Team Status: Inactive Member Role Status Dates Roni Dahl MD Primary Care Provider Active Start: February 26, 2025 End: February 26, 2025Mattjesus Hylton MDAttending ProviderActiveStart: February 26, 2025 End: February 26, 2025 [...] BE BASED ON THE PRIMARY CLINICAL RECORDS. [facility] [employer] [facility]. provides no warranty or guarantee of the accuracy or completeness of information in this document.
--- NOTE | 2025-04-29 14:15 | PM.CN ---
Consult Note: HPI Data of Consult Patient: known to practice within the last 3 years Consult date: 04/29/25 Requesting Physician: Gabrielle Boswell NP Primary Care Provider: Rocio Dahl MD Consult Narrative Reason for consult: right leg pain Narrative: Mary Jane eckert pleasant 79 year old female presents for evaluation of chronic low back pain and right leg pain present >12 months unresponsive to > 6 weeks of PT/HEP, heat, ice, tylenol, cannot take NSAIDs on eliquis. pt noting increased right leg pain, numbness, tingling, and weakness. pain today 4-5/10 sharp stabbing increasing to 8/10 with standing, walking, lifting. utilizing tylenol PRN, tramadol prn. previously failed gabapentin and lyrica. on 04-12-25 pt underwent right L5-S1 S1-S2 TFESI with 60% improvement in pain and functional ability per pt. denies fall/injury. pt not interested in scs trial. cc:: CC: Gabrielle Boswell NP Review of Systems ROS Musculoskeletal Reports: back pain and extremity pain PFSH PFSH Medical History Irregular heartbeat ?I49.9 - Cardiac arrhythmia, unspecified (ICD-10) Sleep apnea ?G47.30 - Sleep apnea, unspecified (ICD-10) Hiatal hernia ?K44.9 - Diaphragmatic hernia without obstruction or gangrene (ICD-10) Acid reflux ?K21.9 - Gastro-esophageal reflux disease without esophagitis (ICD-10) Osteoarthritis ?M19.90 - Unspecified osteoarthritis, unspecified site (ICD-10) TMJ (dislocation of temporomandibular joint) ?S03.00XA - Dislocation of jaw, unspecified side, initial encounter (ICD-10) Hypothyroid ?E03.9 - Hypothyroidism, unspecified (ICD-10) Surgical History History of bladder surgery ?Z98.890 - Other specified postprocedural states (ICD-10) History of knee replacement ?Z96.659 - Presence of unspecified artificial knee joint (ICD-10) History of hip replacement ?Z96.649 - Presence of unspecified artificial hip joint (ICD-10) History of cholecystectomy ?Z90.49 - Acquired absence of other specified parts of digestive tract (ICD-10) History of ankle surgery ?Z98.890 - Other specified postprocedural states (ICD-10) H/O: hysterectomy ?Z90.710 - Acquired absence of both cervix and uterus (ICD-10) H/O hernia repair ?Z98.890 - Other specified postprocedural states (ICD-10) ?Z87.19 - Personal history of other diseases of the digestive system (ICD-10) Meds Home Medications and Allergies Home Medications ?Medication ?Instructions ?Recorded ?Confirmed ?Type aspirin 81 mg capsule 81 mg PO DAILY 08/26/23 04/12/25 History calcium-magnesium 300 mg-300 mg 1 tab PO DAILY 08/26/23 04/12/25 History tablet cholecalciferol (vitamin D3) 50 50 mcg PO BID 08/26/23 04/12/25 History mcg (2,000 unit) capsule citalopram 20 mg tablet 20 mg PO DAILY 08/26/23 04/12/25 History cyanocobalamin (vitamin B-12) 1,000 mcg PO DAILY 08/26/23 04/12/25 History 1,000 mcg capsule docusate sodium 100 mg capsule 100 mg PO DAILY 08/26/23 04/12/25 History estradiol 0.01% (0.1 mg/gram) 1 g vaginal QWEEK 08/26/23 04/12/25 History vaginal cream fexofenadine 180 mg tablet 180 mg PO DAILY 08/26/23 04/12/25 History fluticasone propionate 50 1 spray intranasal DAILY PRN 08/26/23 04/12/25 History mcg/actuation nasal allergy symptoms spray,suspension levothyroxine 50 mcg capsule 50 mcg PO DAILY 08/26/23 04/12/25 History pilocarpine HCl 5 mg tablet 5 mg PO TID 08/26/23 04/12/25 History pravastatin 40 mg tablet 40 mg PO DAILY 08/26/23 04/12/25 History psyllium husk 0.4 gram capsule 0.4 g PO DAILY 08/26/23 04/12/25 History (Metamucil) topiramate 50 mg tablet 50 mg PO DAILY 08/26/23 04/12/25 History apixaban 5 mg tablet (Eliquis) 5 mg PO BID 02/03/24 04/12/25 History diltiazem HCl 120 mg 120 mg PO Q24H 03/25/24 04/12/25 History capsule,extended release 24 hr tramadol 50 mg tablet 50 mg PO BID PRN pain #14 tabs 08/12/24 04/12/25 Rx tramadol 50 mg tablet 50 mg PO BID PRN pain #14 tabs 03/18/25 04/12/25 Rx Allergies Allergy/AdvReac Type Severity Reaction Status Date / Time latex Allergy Irritable Verified 04/12/25 11:02 morphine Allergy Vomiting Verified 04/12/25 11:02 Sulfa (Sulfonamide Allergy Rash Verified 04/12/25 11:02 Antibiotics) Exam Constitutional Documenting provider has reviewed patient's vital signs: yes Common normals: no apparent distress, oriented x3, healthy appearing, alert and well nourished General appearance: cooperative HENMT Common normals: normocephalic, hearing grossly normal bilaterally and moist oral mucous membranes Head and scalp: normocephalic Eye Common normals: PERRL Pupil: PERRL Neck & C-Spine Common normals: full ROM General: normal visual inspection Chest Common normals: inspection of chest normal Respiratory Common normals: normal respiratory effort, no retractions and no use of accessory muscles Back & Pelvis Lumbar spine/lower back: ROM limited, pain with ROM and straight leg raise positive right Other: strength 5/5 in BLE increased pain right L5/S1 decreased sensation to right L5/S1 Extremity Common normals: normal to inspection and full ROM Neuro Common normals: oriented x3 Sensorium/orientation: alert Motor exam: strength 5/5 throughout and no movement abnormalities noted Psych Common normals: mental status grossly normal, thought process normal, cooperative, affect normal, speech normal and activity/motor behavior normal Speech: normal speech Thought process: normal thought process Results Additional Findings Additional findings: If on a controlled substance or opioids, I have checked an [place] report on this patient and there are no aberrancies noted in the prescribing history.??If on a controlled substance or opioid a drug screen was completed and reviewed within the last year, and if there has not been a drug screen completed we ordered one today to monitor higher risk, state monitored pain medication use. As part of providing excellent, safe, comprehensive care, the following was completed at our patient's visit: 1. A medication reconciliation and review to ensure accurate knowledge of current/active medications, including asking our patients to inform us about any [id number] medications or herbal remedies/nutritional supplements/alternative remedies. 2. A review to specifically ensure our patients have had annual screening for screening for depression, screening for tobacco use, and screening for unhealthy alcohol use. For concerning screenings had a discussion with the patient, provided patient education, and recommended follow-up with primary care provider when appropriate. If patient noted with a risk of falling, they received education on strength, gait, and balance training to prevent future risk of falling. Portions of this note may have been carried over from the previous visit and updated as appropriate. Please note this office utilizes paper charting in addition to the electronic medical record. A list of current medications, vitals, and PMH is available there as the clinical staff outside of myself do not have access to [employer] charting during the clinic day operations. As part of providing quality comprehensive care the current medications, vitals, and PMH were reviewed in the paper chart. Assessment and Plan Assessment and Plan (1) Right sided sciatica: Assessment and Plan: The patient has had over 3 months of moderate to severe low back and right leg pain with functional impairment and inadequate response to conservative care including NSAIDS (unless there are contraindication such as concurrent blood thinners), multiple oral or topical pain medications, and home exercise program/physical therapy.? Patient has completed >6 weeks of guided home exercise program and/or formal physical therapy program without relief of their symptoms.? RFIDA 34% (2) Lumbosacral radiculopathy: Plan declining scs trial continue current medications. okay to fill tramadol 50mg bid prn moderate to severe pain 30 tabs to last 30 days continue HEP as tolerated f/u 3 months, sooner if needed
== END 2025-04-29 13:51 | disposition home or self-care (01) ==
LOC: PM 13:51
PROVIDERS: PCP Family Medicine; Visit Provider Nurse Practitioner
DX: M46.1 Sacroiliitis, not elsewhere classified (principal); M54.16 Radiculopathy, lumbar region
CPT/HCPCS: G0463